=== PATIENT | male | born 1955 | race Caucasian/White ===

== ENCOUNTER → 2016-08-20 | Outpatient (CLI) | payer MEDICAID, OTHER ==
[~2016-08-20] MED LIST: ALBU2.5V4 NEB; ALBU2.5V52 INH; ALBU8.5H2 IH; ALBU8.5H4 IH; ATOR10TA PO; AZIT250T PO; CEFD300C3 PO; CEFP500T4 PO; CEPH500C PO; CIPR-225 PO; CRB200T PO; CRESTOR40 MG PO; CYCL10TA9 PO; DOXY100C42 PO; DOXY100C49 PO; EZET10TA5 PO; FLUT1DIS26 PO; GBPN300C PO; HYDR-707 PO; HYDR-757 PO; LAMO100T69 PO; LAMO25TA75 PO; MELO15TA14 PO; METH4TAB PO; PHN100C PO; PRD10T PO; PRD20T PO; PRED20TA PO; ROSU40TA PO; RT-ALBUINH IH; TIOT18CA INH
[2016-08-20 11:21] LABS: MEAN PLATELET VOLUME 9.5 FL (7.4-10.4); RED BLOOD COUNT 4.47 10^6/uL (4.35-5.85); RED CELL DISTRIBUTION WIDTH 14.9 % (10.0-14.5); WHITE BLOOD COUNT 5.7 10^3/uL (4.3-11.0)
[2016-08-20 11:36] LABS: ALANINE AMINOTRANSFERASE 9 U/L (0-55); ANION GAP 7 MMOL/L (5-14); ASPARTATE AMINO TRANSFERASE 13 U/L (5-34); BILIRUBIN,TOTAL 0.3 MG/DL (0.1-1.0); BLOOD UREA NITROGEN 11 MG/DL (7-18); BUN/CREATININE RATIO 15; CALCIUM 8.9 MG/DL (8.5-10.1); CARBON DIOXIDE 28 MMOL/L (21-32); CHLORIDE 95 MMOL/L (98-107); CHOLESTEROL 277 MG/DL (< 200); CREATININE SERUM 0.73 MG/DL (0.60-1.30); DIRECT LDL 170 MG/DL (1-129); GFR ESTIMATED > 60; GLUCOSE 96 MG/DL (70-105); POTASSIUM 4.7 MMOL/L (3.6-5.0); SODIUM 130 MMOL/L (135-145); TRIGLYCERIDES 63 MG/DL (<150); VLDL CHOLESTEROL 13 MG/DL (5-40)
[2016-08-20 11:42] LABS: CARBAMAZEPINE (TEGRETOL) 8.4 UG/ML (4.0-12.0)
== END ==
LOC: LAB 10:59
PROVIDERS: ATTEND Family Medicine
DX: G40.909 Epilepsy, unspecified, not intractable, without status epilepticus (principal); J44.9 Chronic obstructive pulmonary disease, unspecified
CPT/HCPCS: 36415; 80053; 80061; 80156; 80185; 85027

== ENCOUNTER → 2016-09-10 | Outpatient (CLI) | payer MEDICAID, OTHER ==
[2016-09-10 14:14] LABS: ANION GAP 10 MMOL/L (5-14); BLOOD UREA NITROGEN 8 MG/DL (7-18); BUN/CREATININE RATIO 11 (0-20); CALCIUM 9.4 MG/DL (8.5-10.1); CARBON DIOXIDE 27 MMOL/L (21-32); CHLORIDE 95 MMOL/L (98-107); CREATININE SERUM 0.74 MG/DL (0.60-1.30); GFR ESTIMATED > 60; GLUCOSE 92 MG/DL (70-105); POTASSIUM 4.5 MMOL/L (3.6-5.0); SODIUM 132 MMOL/L (135-145)
== END ==
LOC: LAB 13:39
PROVIDERS: ATTEND Family Medicine
DX: E87.1 Hypo-osmolality and hyponatremia (principal); G40.909 Epilepsy, unspecified, not intractable, without status epilepticus
CPT/HCPCS: 36415; 80048

== ENCOUNTER → 2016-12-19 | Outpatient (CLI) | payer MEDICAID, OTHER ==
[2016-12-19 12:44] LABS: BASOPHILS % (AUTO) 0 % (0-10); EOSINOPHILS % (AUTO) 0 % (0-10); LYMPHOCYTES # (AUTO) 0.9 X 10^3 (1.0-4.0); LYMPHOCYTES % (AUTO) 9 % (12-44); MEAN CORPUSCULAR HEMOGLOBIN 31 PG (25-34); MEAN CORPUSCULAR HGB CONC 34 G/DL (32-36); MEAN CORPUSCULAR VOLUME 92 FL (80-99); MEAN PLATELET VOLUME 9.1 FL (7.4-10.4); MONOCYTES # (AUTO) 0.8 X 10^3 (0.0-1.0); MONOCYTES % (AUTO) 8 % (0-12); NEUTROPHILS # (AUTO) 8.1 X 10^3 (1.8-7.8); NEUTROPHILS % (AUTO) 83 % (42-75); PLATELET COUNT 239 10^3/uL (130-400); RED BLOOD COUNT 4.41 10^6/uL (4.35-5.85); WHITE BLOOD COUNT 9.7 10^3/uL (4.3-11.0)
--- NOTE | 2016-12-19 13:55 | Diagnostic Imaging Report ---
PA and lateral views of the chest. INDICATION: COPD. Cough. FINDINGS: The lungs are hyperinflated and clear. The heart size is normal. No effusion or pneumothorax is seen. The mediastinum and ryan appear unremarkable. IMPRESSION: COPD. Hyperinflated clear lungs. Dictated by: Dictated on workstation # [id number]
== END ==
LOC: RAD 12:24
PROVIDERS: ATTEND Family Medicine
DX: J44.9 Chronic obstructive pulmonary disease, unspecified (principal)
CPT/HCPCS: 36415; 71020; 85025

== ENCOUNTER → 2017-01-14 | Outpatient (CLI) | payer MEDICAID, OTHER ==
[2017-01-14 13:10] LABS: MEAN PLATELET VOLUME 9.5 FL (7.4-10.4); RED BLOOD COUNT 4.5 10^6/uL (4.35-5.85); RED CELL DISTRIBUTION WIDTH 14.7 % (10.0-14.5); WHITE BLOOD COUNT 10.1 10^3/uL (4.3-11.0)
--- NOTE | 2017-01-14 13:12 | Diagnostic Imaging Report ---
PROCEDURE: CT head without contrast. TECHNIQUE: Multiple contiguous axial images were obtained through the brain without the use of intravenous contrast. INDICATION: Fall. Trauma to the head. History of seizures. COMPARISON: 11/20/2015 FINDINGS: Ventricles and cortical sulci are stable in size and contour. Note is again made of asymmetric enlargement of the right lateral ventricle. There is also asymmetric mild atrophy of the right cerebral hemisphere. These changes are chronic as well. There is no new loss of murphy-white matter junction differentiation to suggest new acute territorial infarct. There is no new mass effect or midline shift. There is no evidence of intra-or extra-axial intracranial hemorrhage. No extraaxial masses or fluid collections are identified. Bony calvarium is intact. Paranasal sinuses and mastoid air cells are clear. IMPRESSION: 1. No acute intracranial abnormality. No CT evidence of acute infarct, mass, nor hemorrhage. Dictated by: Dictated on workstation # [id number]
[2017-01-14 13:30] LABS: ALANINE AMINOTRANSFERASE 11 U/L (0-55); ALBUMIN 3.8 GM/DL (3.2-4.5); ANION GAP 9 MMOL/L (5-14); ASPARTATE AMINO TRANSFERASE 20 U/L (5-34); BILIRUBIN,TOTAL 0.4 MG/DL (0.1-1.0); BLOOD UREA NITROGEN 8 MG/DL (7-18); BUN/CREATININE RATIO 12; CALCIUM 9.2 MG/DL (8.5-10.1); CARBON DIOXIDE 32 MMOL/L (21-32); CHLORIDE 90 MMOL/L (98-107); CREATININE SERUM 0.65 MG/DL (0.60-1.30); GFR ESTIMATED > 60; GLUCOSE 115 MG/DL (70-105); POTASSIUM 4.4 MMOL/L (3.6-5.0); SODIUM 131 MMOL/L (135-145); TOTAL PROTEIN 7.3 GM/DL (6.4-8.2)
[2017-01-14 13:36] LABS: CARBAMAZEPINE (TEGRETOL) 5.9 UG/ML (4.0-12.0)
--- NOTE | 2017-01-14 19:06 | Diagnostic Imaging Report ---
3 views of the left ankle. INDICATION: Fall. FINDINGS: No fracture, dislocation or radiopaque foreign body. The ankle mortise appears normal in configuration. Slight irregularity along the posterior malleolus could relate to an old injury. IMPRESSION: No acute fracture seen. Dictated by: Dictated on workstation # [id number]
--- NOTE | 2017-01-14 19:13 | Diagnostic Imaging Report ---
3 views of the nasal bone. INDICATION: Fall. FINDINGS: There is a transverse lucency along the mid to proximal aspect of the nasal bone seen on the lateral view of each side which may relate to a nondisplaced fracture. No radiopaque foreign body. IMPRESSION: Transverse lucency across the nasal bone may relate to a nondisplaced fracture. Dictated by: Dictated on workstation # [id number]
== END ==
LOC: RAD 12:13
PROVIDERS: ATTEND Family Medicine
DX: J34.89 Other specified disorders of nose and nasal sinuses (principal); S99.912A Unspecified injury of left ankle, initial encounter; G40.909 Epilepsy, unspecified, not intractable, without status epilepticus; W19.XXXA Unspecified fall, initial encounter; Y99.8 Other external cause status
CPT/HCPCS: 36415; 70160; 70450; 73610; 80053; 80156; 80185; 85027

== ENCOUNTER 2017-02-28 12:20 | Inpatient (IN) | payer MEDICAID ==
[~2017-02-28] VITALS: Ht 185.4 cm; Wt 59.7 kg
--- OUTSIDE RECORDS SUMMARY | 2017-02-28 12:26 | XMS REPORT | Clinical Summary ---
Author Author [facility] Address Unknown Phone Unavailable Care Team Providers Care Manager Proposal Name Role Phone PCP Unavailable Source Comments Some departments are not documenting in the electronic medical record. If you do not see the information that you expected, contact Release of Information in the Health Information Management department at [phone] for further assistance in locating additional records.[facility] Allergies Active Allergy Reactions Severity Noted Date Comments Aspirin SEE COMMENTS 10/22/2013 Contraindication to some of his medications Current Medications Prescription Sig. Disp. Refills Start End Date Status Date tiotropium (SPIRIVA WITH Inhale 18 mcg by mouth Active HANDIHALER) 18 mcg daily. capsule for inhaler FLUTICASONE/SALMETEROL Inhale by mouth twice Active (ADVAIR DISKUS IN) daily. MELOXICAM (MOBIC PO) Take by mouth daily. Active ALBUTEROL IN Inhale by mouth four Active times daily. ROSUVASTATIN CALCIUM Take by mouth daily. Active (CRESTOR PO) gabapentin (NEURONTIN) Take 1 Cap by mouth 180 Cap 11 10/29/19 Active 300 mg capsule daily. Taking 6 tabs 15 daily lamoTRIgine (LAMICTAL) Take 1 Tab by mouth three 90 Tab 6 10/29/19 Active 100 mg tablet times daily. 15 lamoTRIgine (LAMICTAL) 25 Take 1 Tab by mouth three 90 Tab 6 10/29/19 Active mg tablet times daily. 15 phenytoin SR (DILANTIN) Take 1 Cap by mouth four 120 Cap 6 10/29/19 Active 100 mg capsule times daily. 15 gabapentin (NEURONTIN) TAKE 6 TABLETS BY MOUTH 180 Cap 1 11/06/19 Active 300 mg capsule DAILY 16 EPITOL 200 mg tablet TAKE ONE TABLET BY MOUTH 90 Tab 2 01/29/20 Active THREE TIMES A DAY 16 Active Problems Problem Noted Date Seizures (HCC) 10/22/2013 Hemiparesis ([facility]) 10/22/2013 Asthma 10/22/2013 COPD (chronic obstructive pulmonary disease) ([facility]) 10/22/2013 Hyperlipidemia 10/22/2013 Weight loss 10/22/2013 Family History Medical History Relation Name Comments Hypertension Father Relation Name Status Comments Father Social History Tobacco Use Types Packs/Day Years Used Date Current Every Day Smoker Cigarettes 1.5 46 Smokeless Tobacco: Never Used Alcohol Use Drinks/Week oz/Week Comments No Sex Assigned at Date Recorded Not on file Last Filed Vital Signs Vital Sign Reading Time Taken Blood Pressure 153/85 10/28/2014 11:59 AM CDT Pulse 58 10/28/2014 11:59 AM CDT Temperature 36.8 C (98.3 F) 10/22/2013 10:21 AM CDT Respiratory Rate - - Oxygen Saturation - - Inhaled Oxygen - - Concentration Weight 77.8 kg (171 lb 8 oz) 10/28/2014 11:59 AM CDT Height 188 cm (6' 2") 10/28/2014 11:59 AM CDT Body Mass Index 22.02 10/28/2014 11:59 AM CDT Plan of Treatment Health Maintenance Due Date Last Done Comments HEPATITIS C SCREENING 1955 PHYSICAL (COMPREHENSIVE) 1960 EXAM PERTUSSIS VACCINE 1964 TETANUS VACCINE 1970 COLORECTAL CANCER 07/17/2003 SCREENING SHINGLES VACCINE 2013 INFLUENZA VACCINE 10/29/2016 Results Not on filefrom Last 3 Months
--- OUTSIDE RECORDS SUMMARY | 2017-02-28 12:28 | XMS REPORT ---
Author Author JAYSON WOODS Organization [employer] Address Unknown Phone Unavailable Care Team Providers Care Commissions Analyst Name Role Phone JAYSON WOODS CP Unavailable Allergies, Adverse Reactions, Alerts Substance Reaction Event Type Aspirin Info Not Available Drug Allergy Problems Problem Type Condition Code Onset Dates Condition Status Problem Obstructive chronic bronchitis, with (acute) exacerbation 491.21 Active Assessment CAP (community acquired pneumonia) J18.9 Active Problem Nondependent tobacco use disorder 305.1 Active Medications Medication Code System Code Instructions Start Date End Date Status Dosage Spiriva HandiHaler [facility] [address]-29 not defined Lamictal [facility] [address]-49 August 19, 2012 by Oral route Crestor [facility] [address]-27 August 19, 2012 by Oral route Mobic [facility] [address]-58 August 19, 2012 by Oral route Albuterol Sulfate [facility] [address]-27 2.5 mg /3 mL (0.083 %) Dec 10, 2013 1 Each by Inhalation route every 4 hours for cough and wheeze PRN for wheezing or cough Tegretol [facility] [address]-79 August 19, 2012 by Oral route Dilantin [facility] [address]-35 August 19, 2012 by Oral route Neurontin [facility] [address]-76 August 19, 2012 by Oral route Advair Diskus [facility] [address]-99 August 19, 2012 by Inhalation route Procedures Procedure Coding System Code Date Office Visit, Est Pt., Level 4 CPT-4 92846 Mar 11, 2015 MEASURE BLOOD OXYGEN LEVEL CPT-4 41235 Mar 11, 2015 Vital Signs Date/Time: Mar 11, 2015 Temperature 99.6 F Weight 171 lbs Height 72 in Oximetry 96 % Blood Pressure Diastolic 70 mmHg Blood Pressure Systolic 130 mmHg Cardiac Monitoring Heart Rate 71 bpm BMI 23.19 Index Results No Known Results Summary Purpose [employer] Submission
[2017-02-28] MEDS ORDERED: methylPREDNISolone 125 MG (Solu-MEDROL) VIAL IVP ONE (12:30)
--- NOTE | 2017-02-28 12:34 | ED Cough/URI ---
General Chief Complaint: Respiratory Problems Stated Complaint: COPD Source: patient Exam Limitations: no limitations History of Present Illness Time seen by provider: 12:32 Initial Comments To ER per EMS from Dr. Genao's office with reports of shortness of breath. Patient has COPD and asthma. He has been out of his Advair and albuterol inhalers for the past 3 days. He continues to smoke 1.5 pack of cigarettes per day. He also reports an unintentional weight loss of about 30 pounds over the past few weeks. Timing/Duration: constant Prior Episodes/Possible Cause: occasional episodes Associated Symptoms: cough, shortness of breath, wheezing Allergies and Home Medications Allergies Coded Allergies: aspirin (Unverified Allergy, Mild, DOES NOT WORK WELL W/ OTHER MEDS, ) ibuprofen (Unverified Allergy, Mild, 08/10/15) Home Medications Albuterol Sulfate 2.5 Mg/3 Ml Vial.neb, 2.5 MG NEB 5XD PRN for SHORTNESS OF BREATH, (Reported) Albuterol Sulfate 1 Puff Puff, 2 PUFF IH Q6H PRN for SHORTNESS OF BREATH, ( Reported) 1 PUFF = 90 MCG Atorvastatin Calcium 40 Mg Tablet, 40 MG PO 0200, (Reported) Carbamazepine 200 Mg Tablet, 400 MG PO 1500, (Reported) TAKES 2 (200MG) TABLETS Carbamazepine 200 Mg Tablet, 200 MG PO 0200,0800,2300, (Reported) Fluticasone/Salmeterol 1 Each Blst.w.dev, 1 PUFF IH BID, (Reported) LAST FILLED 01-25-17 Gabapentin 300 Mg Capsule, 300 MG PO 2300, (Reported) Gabapentin 600 Mg Tablet, 600 MG PO 0800,1500, (Reported) Lamotrigine 25 Mg Tablet, 25 MG PO 1500,2300, (Reported) Lamotrigine 100 Mg Tablet, 100 MG PO 1500,0200, (Reported) Meloxicam 15 Mg Tablet, 15 MG PO 1500, (Reported) Phenytoin Sodium Extended 100 Mg Capsule, 200 MG PO 1500, (Reported) TAKES 2 (100MG) CAPSULES Phenytoin Sodium Extended 100 Mg Capsule, 100 MG PO 0800,2300, (Reported) Tiotropium [place] 1 Inh Aerp, 1 CAP IH HS, (Reported) Constitutional: see HPI, No chills, No fever EENTM: see HPI Respiratory: see HPI, cough, short of breath, wheezing Cardiovascular: no symptoms reported Genitourinary: no symptoms reported Musculoskeletal: no symptoms reported Skin: no symptoms reported Psychiatric/Neurological: No Symptoms Reported Hematologic/Lymphatic: No Symptoms Reported Past Rdibyvl-Jrimgk-Veydlm Hx Patient Social History Type Used: Cigarettes Recent Hopitalizations: No Immunizations Up To Date PED Vaccines UTD: Yes Surgeries Surgeries: Gallbladder Respiratory Respiratory Disorders: Asthma, Sleep Apnea, COPD Currently Using CPAP: No Currently Using BIPAP: No Cardiovascular Cardiac Disorders: High Cholesterol Neurological Neurological Disorders: Seizure Disorder Reproductive System Hx Reproductive Disorders: No Sexually Transmitted Disease: No HIV/AIDS: No HEENT Loss of Vision: Denies Hearing Impairment: Denies Blood Transfusions Adverse Reaction to a Blood Tr: No Family Medical History Significant Family History: No Pertinent Family Hx, Heart Disease Family Medial History: Hypercholesterolemia 19 FATHER Hypertension 19 FATHER Physical Exam Vital Signs Vital Sign - Last 12Hours 02/28/17 12:20 Temp 98.8 Pulse 81 Resp 22 B/P (MAP) 136/86 (103) Pulse Ox 99 O2 Delivery Nasal Cannula Capillary Refill : General Appearance: WD/WN, no apparent distress Eyes: Bilateral Eye Normal Inspection, Bilateral Eye PERRL, Bilateral Eye EOMI HEENT: PERRL/EOMI, normal ENT inspection Neck: non-tender, full range of motion Respiratory: decreased breath sounds, accessory muscle use, crackles, rhonchi, wheezing Cardiovascular: regular rate, rhythm, no murmur Gastrointestinal: normal bowel sounds, non tender, soft Neurologic/Psychiatric: alert, normal mood/affect, oriented x 3 Skin: normal color, warm/dry Laceration Repair : Suture Size: 5-0 Progress/Results/Core Measures Suspected Sepsis SIRS Temperature: Pulse: Respiratory Rate: Laboratory Tests 02/28/17 12:27: White Blood Count 15.6H Blood Pressure / Mean: Laboratory Tests 02/28/17 12:27: Creatinine 0.64, Platelet Count 237, Total Bilirubin 0.3 Results/Orders Lab Results Laboratory Tests Test 02/28/17 12:27 Range/Units White Blood Count 15.6 H 4.3-11.0 10^3/uL Red Blood Count 3.98 L 4.35-5.85 10^6/uL Hemoglobin 12.2 L 13.3-17.7 G/DL Hematocrit 37 L 40-54 % Mean Corpuscular Volume 92 80-99 FL Mean Corpuscular Hemoglobin 31 25-34 PG Mean Corpuscular Hemoglobin Concent 33 32-36 G/DL Red Cell Distribution Width 14.4 10.0-14.5 % Platelet Count 237 130-400 10^3/uL Mean Platelet Volume 9.1 7.4-10.4 FL Neutrophils (%) (Auto) 87 H 42-75 % Lymphocytes (%) (Auto) 5 L 12-44 % Monocytes (%) (Auto) 8 0-12 % Eosinophils (%) (Auto) 0 0-10 % Basophils (%) (Auto) 0 0-10 % Neutrophils # (Auto) 13.6 H 1.8-7.8 X 10^3 Lymphocytes # (Auto) 0.7 L 1.0-4.0 X 10^3 Monocytes # (Auto) 1.3 H 0.0-1.0 X 10^3 Eosinophils # (Auto) 0.0 0.0-0.3 10^3/uL Basophils # (Auto) 0.0 0.0-0.1 10^3/uL Neutrophils % (Manual) 88 % Lymphocytes % (Manual) 4 % Monocytes % (Manual) 8 % Eosinophils % (Manual) 0 % Basophils % (Manual) 0 % Band Neutrophils 0 % Blood Morphology Comment NORMAL Blood Gas Puncture Site R RAD Blood Gas Patient Temperature 98.8 Arterial Blood pH 7.37 7.37-7.43 Arterial Blood Partial Pressure CO2 66 H 35-45 MMHG Arterial Blood Partial Pressure O2 90 79-93 MMHG Arterial Blood HCO3 37 H 23-27 MMOL/L Arterial Blood Total CO2 38.9 H 21.0-31.0 MMOL/L Arterial Blood Oxygen Saturation 98 94-100 % Arterial Blood Base Excess 11.2 H -2.5-2.5 MMOL/L Johan Test YES-POS Blood Gas Ventilator Setting NO Blood Gas Inspired Oxygen 3 Sodium Level 133 L 135-145 MMOL/L Potassium Level 4.4 3.6-5.0 MMOL/L Chloride Level 89 L 98-107 MMOL/L Carbon Dioxide Level 36 H 21-32 MMOL/L Anion Gap 8 5-14 MMOL/L Blood Urea Nitrogen 9 7-18 MG/DL Creatinine 0.64 0.60-1.30 MG/DL Estimat Glomerular Filtration Rate > 60 BUN/Creatinine Ratio 14 Glucose Level 113 H 70-105 MG/DL Calcium Level 9.2 8.5-10.1 MG/DL Total Bilirubin 0.3 0.1-1.0 MG/DL Aspartate Amino Transf (AST/SGOT) 10 5-34 U/L Alanine Aminotransferase (ALT/SGPT) 8 0-55 U/L Alkaline Phosphatase 133 40-136 U/L B-Type Natriuretic Peptide 60.4 <100.0 PG/ML Total Protein 7.4 6.4-8.2 GM/DL Albumin 3.8 3.2-4.5 GM/DL My Orders Orders - NOREEN CHÁVEZ APRN Cbc With Automated Diff (02/28/17 12:22) Comprehensive Metabolic Panel (02/28/17 12:22) Chest 1 View, Ap/Pa Only (02/28/17 12:22) BNP (02/28/17 12:22) Saline Lock/Iv-Start (02/28/17 12:22) Methylprednisolone Sod Succ (Solu-Medrol (02/28/17 12:30) Arterial Blood Gas (02/28/17 12:27) Manual Differential (02/28/17 12:27) Blood Culture (02/28/17 13:14) Lactic Acid Analyzer (02/28/17 13:14) Ceftriaxone Injection (Rocephin Injectio (02/28/17 13:15) Medications Given in ED Current Medications Medications Dose Ordered Sig/Porfirio Route Start Time Stop Time Status Last Admin Dose Admin Methylprednisolone Sodium Succinate 125 mg ONCE ONCE IVP 02/28/17 12:30 02/28/17 12:31 DC 02/28/17 12:42 125 MG Vital Signs/I&O Vital Sign - Last 12Hours 02/28/17 12:20 Temp 98.8 Pulse 81 Resp 22 B/P (MAP) 136/86 (103) Pulse Ox 99 O2 Delivery Nasal Cannula Capillary Refill : Diagnostic Imaging Diagonstic Imaging: Xray Plain Films/CT/US/NM/MRI: chest Comments NAME: CR QUIJANO MED REC#: [id number] PT STATUS: REG ER : 1955 PHYSICIAN: NOREEN CHÁVEZ APRN ADMIT DATE: 02/28/17/ER Draft Date of Exam:02/28/17 CHEST 1 VIEW, AP/PA ONLY Indication: Shortness of breath Exam: Portable chest at 12:47 PM Findings: There is some interstitial infiltrate in the medial lung bases bilaterally that is new compared to 02/04/2017. Heart size and pulmonary vascularity are normal. The lungs are clear. There are degeneratives change in both shoulders. Impression: Bilateral medial basilar interstitial infiltrates are new since 02/04/2017. Dictated on workstation # [id number] Dict: 02/28/17 1306 Trans: 02/28/17 1311 [facility] [id number] Interpreted by: VANESSA SERNA MD Electronically signed by: Departure Communication (Admissions) Time/Spoke to Admitting Phy: 13:[address] Godinez extracorporeal circulation specialist for dr genao. Will admit, cefepime, steroids. Impression Impression: Primary Impression: COPD exacerbation Additional Impression: Pneumonia, community acquired Disposition: ADMITTED INPATIENT Condition: Stable Admissions Decision to Admit Reason: Admit from ER (General) Decision to Admit/Date: Feb 28, 2017 Time/Decision to Admit Time: 13:00 Departure-Patient Inst. Referrals: AMANDEEP GENAO DO (PCP/Family) Primary Care Physician NOREEN CHÁVEZ APRN Feb 28, 2017 12:34
[2017-02-28 12:35] LABS: BASOPHILS % (AUTO) 0 % (0-10); EOSINOPHILS % (AUTO) 0 % (0-10); LYMPHOCYTES # (AUTO) 0.7 X 10^3 (1.0-4.0); LYMPHOCYTES % (AUTO) 5 % (12-44); MEAN CORPUSCULAR HEMOGLOBIN 31 PG (25-34); MEAN CORPUSCULAR HGB CONC 33 G/DL (32-36); MEAN CORPUSCULAR VOLUME 92 FL (80-99); MEAN PLATELET VOLUME 9.1 FL (7.4-10.4); MONOCYTES # (AUTO) 1.3 X 10^3 (0.0-1.0); MONOCYTES % (AUTO) 8 % (0-12); NEUTROPHILS # (AUTO) 13.6 X 10^3 (1.8-7.8); NEUTROPHILS % (AUTO) 87 % (42-75); PLATELET COUNT 237 10^3/uL (130-400); RED BLOOD COUNT 3.98 10^6/uL (4.35-5.85); RED CELL DISTRIBUTION WIDTH 14.4 % (10.0-14.5); WHITE BLOOD COUNT 15.6 10^3/uL (4.3-11.0)
[2017-02-28 12:38] LABS: ABG BASE EXCESS 11.2 MMOL/L (-2.5-2.5); ABG HCO3 37 MMOL/L (23-27); ABG OXYGEN SATURATION 98 % (94-100); ABG PCO2 66 MMHG (35-45); ABG PH 7.37 (7.37-7.43); ABG PO2 90 MMHG (79-93); ABG TCO2 38.9 MMOL/L (21.0-31.0)
[2017-02-28 12:39] LABS: ALLENS TEST YES-POS; PATIENT TEMP 98.8
[2017-02-28 12:57] LABS: ANION GAP 8 MMOL/L (5-14); BLOOD UREA NITROGEN 9 MG/DL (7-18); CARBON DIOXIDE 36 MMOL/L (21-32); CHLORIDE 89 MMOL/L (98-107); CREATININE SERUM 0.64 MG/DL (0.60-1.30); POTASSIUM 4.4 MMOL/L (3.6-5.0); SODIUM 133 MMOL/L (135-145)
[2017-02-28 12:58] LABS: ALANINE AMINOTRANSFERASE 8 U/L (0-55); ALBUMIN 3.8 GM/DL (3.2-4.5); ASPARTATE AMINO TRANSFERASE 10 U/L (5-34); BILIRUBIN,TOTAL 0.3 MG/DL (0.1-1.0); BUN/CREATININE RATIO 14; CALCIUM 9.2 MG/DL (8.5-10.1); GFR ESTIMATED > 60; GLUCOSE 113 MG/DL (70-105); TOTAL PROTEIN 7.4 GM/DL (6.4-8.2)
[2017-02-28 12:59] LABS: BAND NEUTROPHILS 0 %; BASOPHILS % (MANUAL) 0 %; EOSINOPHILS % (MANUAL) 0 %; LYMPHOCYTES % (MANUAL) 4 %; NEUTROPHILS % (MANUAL) 88 %
--- NOTE | 2017-02-28 13:11 | Diagnostic Imaging Report ---
Indication: Shortness of breath Exam: Portable chest at 12:47 PM Findings: There is some interstitial infiltrate in the medial lung bases bilaterally that is new compared to 02/04/2017. Heart size and pulmonary vascularity are normal. The lungs are clear. There are degeneratives change in both shoulders. Impression: Bilateral medial basilar interstitial infiltrates are new since 02/04/2017. Dictated by: Dictated on workstation # [id number]
[2017-02-28] MEDS ORDERED: cefTRIAXone INJECTION 1,000 MG in NS (IVPB) 50 ML IV ONE (13:15)
--- OUTSIDE RECORDS SUMMARY | 2017-02-28 13:42 | XMS REPORT | Clinical Summary ---
Author Author [facility] Organization [facility] Address Unknown Phone Unavailable Care Team Providers Care Plant Ecologist Name Role Phone PCP Unavailable Source Comments Some departments are not documenting in the electronic medical record. If you do not see the information that you expected, contact Release of Information in the Health Information Management department at [phone] for further assistance in locating additional records.[facility] Allergies Active Allergy Reactions Severity Noted [...] Problem Noted Date Seizures (HCC) 10/22/2013 Hemiparesis ([facility]) 10/22/2013 Asthma 10/22/2013 COPD (chronic obstructive pulmonary disease) ([facility]) 10/22/2013 Hyperlipidemia 10/22/2013 Weight loss 10/22/2013 Family [...]
[2017-02-28] MEDS ORDERED: CEFEPIME INJECTION 2,000 MG in NS (IVPB) 50 ML IV ONE (14:00)
[2017-02-28 14:40] VITALS: BP 155/76
[2017-02-28] MEDS ORDERED: CARB200T6 PO (14:51)
[2017-02-28] MEDS ORDERED: LAMO100T PO (14:51)
[2017-02-28] MEDS ORDERED: ATOR40TA PO (14:51)
[2017-02-28] MEDS ORDERED: FLUT1DIS26 IH (14:51)
[2017-02-28] MEDS ORDERED: GABA-488 PO (14:53)
[2017-02-28] MEDS ORDERED: GABA600T2 PO (14:53)
[2017-02-28] MEDS ORDERED: CATHETER FLUSH 10 ML SYR IV PRN (15:00)
[2017-02-28] MEDS ORDERED: TIOT18CA2 IH (15:04)
[2017-02-28] MEDS ORDERED: PHEN100C11 PO ×2 (15:04)
[2017-02-28] MEDS ORDERED: CARB200T PO (15:04)
[2017-02-28] MEDS ORDERED: RT-ALBUINH IH (15:04)
[2017-02-28 15:18] VITALS: BP 155/76
[2017-02-28] MEDS: RT-ALBUTEROL/IPRATROPIUM 3 ML (DUONEB) VIAL INH SCH ×4 (15:39→21:49)
[2017-02-28] MEDS: NICOTINE 21 MG (NICODERM) PATCH TD SCH (15:55)
[2017-02-28] MEDS: methylPREDNISolone 125 MG (Solu-MEDROL) VIAL IV SCH ×2 (15:55→21:04)
[2017-02-28 16:00] VITALS: BP 138/66
[2017-02-28] MEDS ORDERED: INFLUENZA TRIvalent 2017-2018 0.5 ML/45 MCG SYR IM ONE (17:30)
[2017-02-28 20:00] VITALS: BP 125/62
[2017-02-28] MEDS: CEFEPIME 2 GM/NS 50 ML IVPB IV SCH ×2 (20:26)
[2017-02-28] MEDS: CATHETER FLUSH 10 ML SYR IV SCH (21:04)
[2017-03-01] VITALS: BP 122/58
[2017-03-01] MEDS: RT-ALBUTEROL/IPRATROPIUM 3 ML (DUONEB) VIAL INH SCH ×13 (00:07→23:48)
[2017-03-01] MEDS ORDERED: carBAMazepine 200 MG (TEGretol) TAB PO ONE (03:03)
[2017-03-01] MEDS ORDERED: PHENYTOIN 100 MG (DILANTIN) CAP PO ONE (03:03)
[2017-03-01] MEDS ORDERED: lamoTRIgine 25 MG (LaMICtal) TAB ONE (03:04)
[2017-03-01] MEDS ORDERED: GABAPENTIN 300 MG (NEURONTIN) CAP ONE (03:06)
[2017-03-01] MEDS: PHENYTOIN 100 MG (DILANTIN) CAP PO SCH ×4 (03:09→22:34)
[2017-03-01] MEDS: GABAPENTIN 300 MG (NEURONTIN) CAP PO SCH ×2 (03:10→22:34)
[2017-03-01] MEDS: carBAMazepine 200 MG (TEGretol) TAB PO SCH ×4 (03:11→22:34)
[2017-03-01] MEDS: lamoTRIgine 25 MG (LaMICtal) TAB PO SCH ×3 (03:12→22:34)
[2017-03-01 04:00] VITALS: BP 126/65
[2017-03-01] MEDS: CATHETER FLUSH 10 ML SYR IV SCH ×3 (05:14→22:35)
[2017-03-01] MEDS: methylPREDNISolone 125 MG (Solu-MEDROL) VIAL IV SCH ×3 (05:14→22:34)
[2017-03-01 05:29] LABS: BASOPHILS % (AUTO) 0 % (0-10); EOSINOPHILS % (AUTO) 0 % (0-10); LYMPHOCYTES # (AUTO) 0.8 X 10^3 (1.0-4.0); LYMPHOCYTES % (AUTO) 5 % (12-44); MEAN CORPUSCULAR HEMOGLOBIN 31 PG (25-34); MEAN CORPUSCULAR HGB CONC 33 G/DL (32-36); MEAN CORPUSCULAR VOLUME 93 FL (80-99); MEAN PLATELET VOLUME 9.6 FL (7.4-10.4); MONOCYTES # (AUTO) 1.3 X 10^3 (0.0-1.0); MONOCYTES % (AUTO) 9 % (0-12); NEUTROPHILS % (AUTO) 86 % (42-75); PLATELET COUNT 203 10^3/uL (130-400); RED BLOOD COUNT 3.59 10^6/uL (4.35-5.85); RED CELL DISTRIBUTION WIDTH 14.2 % (10.0-14.5); WHITE BLOOD COUNT 15.1 10^3/uL (4.3-11.0)
[2017-03-01 08:00] VITALS: BP 124/66
[2017-03-01] MEDS: CEFEPIME 2 GM/NS 50 ML IVPB IV SCH ×4 (08:32→20:34)
[2017-03-01] MEDS: NICOTINE 21 MG (NICODERM) PATCH TD SCH (08:32)
[2017-03-01] MEDS: NICOTINE PATCH REMOVAL TP SCH (08:32)
--- NOTE | 2017-03-01 10:57 | History & Physical-Hospitalist ---
HPI History of Present Illness: HPI/Chief Complaint Mr. 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 With O2 at home he is only been going to the bathroom and back with poor by mouth intake. He is been progressively more short of breath with increased clear sputum production especially over the past week. He presented to the Dr. Genao's office this Friday, 28 February. On room air because his oxygen tank and runout he reports his O2 saturation was in the 86 percent range with significant sensations of dyspnea. He was sent to the emergency room where he appeared to be in acute respiratory distress. After several breathing treatments who is feeling a little better. He had by basilar atelectasis versus infiltrate and was subsequently admitted for treatment of acute COPD exacerbation and possible pneumonia. He denied night sweats chills or fever but is had at least a 20 pound weight loss this year. Because of his shortness of breath and cough he had to cut back on his smoking from 2 packs a day to around 1 pack per day. Date Seen 03/01/17 Time Seen by Provider: 09:00 Attending Physician Micky Genao DO PCP Micky Genao DO Referring Physician Date of Admission Feb 28, 2017 at 13:26 Home Medications & Allergies Home Medications Reviewed patient Home Medication Reconciliation Form Allergies Allergies Coded Allergies aspirin (Unverified Allergy, Mild, DOES NOT WORK WELL W/ OTHER MEDS, 08/10/15) ibuprofen (Unverified Allergy, Mild, 08/10/15) Past Dexrptp-Fksiid-Goubah Hx Patient Social History Alcohol Use: Denies Use Recreational Drug Use: Yes (not current, 15 years ago-ETOH and PO drugs) Smoking Status: Current Everyday Smoker Type Used: Cigarettes Physical Abuse Screen: No Sexual Abuse: No Recent Foreign Travel: No Contact w/other who traveled: No Recent Hopitalizations: No Recent Infectious Disease Expo: No Immunizations Up To Date Pediatric: Yes Surgeries Yes Gallbladder Respiratory Yes (tobaccoism) COPD Currently Using CPAP: No Currently Using BIPAP: No Cardiovascular Yes High Cholesterol 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) Seizure Disorder Reproductive System Hx Reproductive Disorders: No Sexually Transmitted Disease: No HIV/AIDS: No Gastrointestinal No Musculoskeletal No Endocrine History of Endocrine Disorders: No HEENT Loss of Vision: Denies Hearing Impairment: Denies Cancer No Psychosocial History of Psychiatric Problem: No Integumentary History of Skin or Integumenta: No Blood Transfusions History of Blood Disorders: No Adverse Reaction to a Blood Tr: No Family Medical History Significant Family History: No Pertinent Family Hx, Heart Disease Family Hx: Hypercholesterolemia 19 FATHER Hypertension 19 FATHER Review of Systems Constitutional: see HPI, No chills, No diaphoresis, No dizziness, No fever, No malaise, weakness, No weight gain, weight loss, No other Respiratory: No no symptoms reported, No see HPI, cough, dyspnea on exertion, No hemoptysis, No orthopnea, No phlegm, short of breath, No stridor, wheezing, No other Cardiovascular: no symptoms reported, see HPI, No chest pain, No edema, No Hx of Intervention, No palpitations, No syncope, No vascular heart diseas, No other Physical Exam Physical Exam Vital Signs Vital Sign - Last 12Hours 02/28/17 02/28/17 02/28/17 12:20 14:37 15:18 Temp 98.8 Pulse 81 Resp 22 B/P (MAP) 136/86 (103) Pulse Ox 99 O2 Delivery Nasal Cannula O2 Flow Rate 3.00 FiO2 3 Capillary Refill : Less Than 3 Seconds General Appearance: Chronically ill, Cachetic, Other Eyes: Bilateral Eye Normal Inspection Neck: Full Range of Motion, Normal Inspection, Non Tender, Supple, Carotid Bruit Respiratory: Chest Non Tender, No Accessory Muscle Use, No Respiratory Distress , Other (Diminished breath sounds there are rales in the midlung lo with absent breath sounds in the bases. There is increased AP diameter with hyperresonance to percussion. Prolonged expiratory phase is noted this morning wheezing is noted only with forced expiration during expiratory phase.) Cardiovascular: Regular Rate, Rhythm, No Edema, No Gallop, No JVD, No Murmur, Normal Peripheral Pulses Gastrointestinal: Normal Bowel Sounds, No Organomegaly, No Pulsatile Mass, Non Tender, Soft Extremity: Normal Capillary Refill, Normal Inspection, Normal Range of Motion, Non Tender, No Calf Tenderness, No Pedal Edema Neurologic/Psychiatric: Alert, Oriented x3 Skin: Other (I'm size shallow gluteal ulcer noted in the upper gluteal fold midline nontender no induration.) Results Results/Procedures Lab Laboratory Tests 02/28/17:27 03/01/17 04:56 Assessment/Plan Admission Diagnosis 1. Acute on chronic hypercapnic respiratory failure possibly due to pneumonia continue antibiotics bronchodilator and anti-inflammatory therapy. 2. Tobaccoism resulting in number 1. Patient voices understanding that cigarettes are the cause of his failing health and likely early demise but still has no desire to quit smoking. 3. Decubitus ulceration age 1 gluteal fold secondary to debility malnutrition and weight loss likely all a result of number 1 discussed the importance of offloading the area for now we will apply barrier cream. Is no evidence for secondary infection. 4. History of generalized seizure disorder continue antiepileptic medication. Copy Copies To 1: MICKY GENAO DO Clinical Quality Measures DVT/VTE Risk/Contraindication: Risk Factor Score Per Nursin RFS Level Per Nursing on Admit: 4+=Very High JIMBO SÁNCHEZ MD Mar 01, 2017 10:57
[2017-03-01 12:00] VITALS: BP 124/63
[2017-03-01] MEDS: MELOXICAM 7.5 MG (MOBIC) TABLET PO SCH (14:37)
[2017-03-01] MEDS: GABAPENTIN 600 MG (NEURONTIN) TAB PO SCH (14:37)
[2017-03-01 16:00] VITALS: BP 145/70
[2017-03-01] MEDS: SIMETHICONE 80 MG (MYLICON) CHEW PO PRN (18:15)
[2017-03-01] MEDS: RT-ADVAIR HFA 115/21 MCG PER PUFF IH SCH (18:32)
[2017-03-01 20:00] VITALS: BP 136/64
[2017-03-01] MEDS ORDERED: RT-ADVAIR HFA 115/21 MCG PER PUFF IH SCH (20:00)
[2017-03-01] MEDS ORDERED: NON-FORMULARY MEDICATION 1 EA EA (Fluticasone/Salmeterol (Advair 250-50 Diskus) 1 PUFF) IH SCH (21:00)
[2017-03-02] VITALS: BP 148/71
[2017-03-02] MEDS: RT-ALBUTEROL/IPRATROPIUM 3 ML (DUONEB) VIAL INH SCH ×7 (02:10→21:29)
[2017-03-02] MEDS: carBAMazepine 200 MG (TEGretol) TAB PO SCH ×4 (02:41→23:21)
[2017-03-02] MEDS: ATORVASTATIN 40 MG (LIPITOR) TABLET PO SCH (02:41)
[2017-03-02 04:00] VITALS: BP 123/62
[2017-03-02] MEDS: methylPREDNISolone 125 MG (Solu-MEDROL) VIAL IV SCH (05:26)
[2017-03-02] MEDS: CATHETER FLUSH 10 ML SYR IV SCH ×3 (05:26→22:19)
[2017-03-02] MEDS: RT-ADVAIR HFA 115/21 MCG PER PUFF IH SCH ×2 (07:00→18:49)
[2017-03-02] MEDS ORDERED: RT-ALBUTEROL/IPRATROPIUM 3 ML (DUONEB) VIAL INH PRN (07:45)
[2017-03-02 07:57] VITALS: BP 143/72
[2017-03-02] MEDS: GABAPENTIN 600 MG (NEURONTIN) TAB PO SCH ×2 (08:02→14:21)
[2017-03-02] MEDS: CEFEPIME 2 GM/NS 50 ML IVPB IV SCH ×4 (08:02→22:19)
[2017-03-02] MEDS: PHENYTOIN 100 MG (DILANTIN) CAP PO SCH ×3 (08:02→23:20)
[2017-03-02] MEDS: NICOTINE 21 MG (NICODERM) PATCH TD SCH (08:04)
[2017-03-02] MEDS: NICOTINE PATCH REMOVAL TP SCH (08:04)
[2017-03-02 12:00] VITALS: BP 151/77
--- NOTE | 2017-03-02 12:55 | Progress Note-Hospitalist ---
Subjective HPI/CC On Admission Date Seen by Provider: Mar 02, 2017 Time Seen by Provider: 09:00 Mr. 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 With O2 at home he is only been going to the bathroom and back with poor by mouth intake. He is been progressively more short of breath with increased clear sputum production especially over the past week. He presented to the Dr. Feng's office this Friday, 28 February. On room air because his oxygen tank and runout he reports his O2 saturation was in the 86 percent range with significant sensations of dyspnea. He was sent to the emergency room where he appeared to be in acute respiratory distress. After several breathing treatments who is feeling a little better. He had by basilar atelectasis versus infiltrate and was subsequently admitted for treatment of acute COPD exacerbation and possible pneumonia. He denied night sweats chills or fever but is had at least a 20 pound weight loss this year. Because of his shortness of breath and cough he had to cut back on his smoking from 2 packs a day to around 1 pack per day. Subjective/Events-last exam she reports feeling better with less shortness of breath. He's able to go 4 hours between breathing treatments now. His cough is moderating and remains nonproductive. He denies chills or fever with improved appetite. He denies chest pain. Objective Exam Vital Signs Vital Sign - Last 12Hours 02/28/17 02/28/17 02/28/17 12:20 14:37 15:18 Temp 98.8 Pulse 81 Resp 22 B/P (MAP) 136/86 (103) Pulse Ox 99 O2 Delivery Nasal Cannula O2 Flow Rate 3.00 FiO2 3 Capillary Refill : Less Than 3 Seconds General Appearance: No Apparent Distress, Chronically ill, Thin Respiratory: Other (Katter rales and rhonchi without wheezing. Significant diminishment of breath sounds posteriorly. Increased air movement compared to yesterday) Cardiovascular: Regular Rate, Rhythm, No Edema, No Gallop, No JVD, No Murmur Extremity: No Pedal Edema Assessment/Plan Assessment and Plan Assess & Plan/Chief Complaint 1. Acute exacerbation of chronic Hypercapnic respiratory failure due to likely community-acquired pneumonia. Respiratory status improving on bronchodilator therapy and anti-inflammatory therapy and antibiotics. Will start Solu-Medrol taper decreasing to 62.5 mg IV every 8. 2. Tobaccoism with severe COPD. JIMBO SÁNCHEZ MD Mar 02, 2017 12:55
[2017-03-02] MEDS: MELOXICAM 7.5 MG (MOBIC) TABLET PO SCH (14:21)
[2017-03-02] MEDS: methylPREDNISolone 125 MG (Solu-MEDROL) VIAL IVP SCH ×2 (14:21→22:18)
[2017-03-02] MEDS: lamoTRIgine 25 MG (LaMICtal) TAB PO SCH ×2 (14:22→23:21)
[2017-03-02 15:20] VITALS: BP 152/75
[2017-03-02 19:10] VITALS: BP 132/66
[2017-03-02] MEDS: SIMETHICONE 80 MG (MYLICON) CHEW PO PRN (19:41)
[2017-03-02] MEDS: GABAPENTIN 300 MG (NEURONTIN) CAP PO SCH (23:21)
[2017-03-03] VITALS: BP 162/77
[2017-03-03] MEDS: RT-ALBUTEROL/IPRATROPIUM 3 ML (DUONEB) VIAL INH SCH ×3 (01:57→10:46)
[2017-03-03] MEDS: carBAMazepine 200 MG (TEGretol) TAB PO SCH ×3 (02:21→14:36)
[2017-03-03] MEDS: ATORVASTATIN 40 MG (LIPITOR) TABLET PO SCH (02:21)
[2017-03-03 04:00] VITALS: BP 122/72
[2017-03-03] MEDS: methylPREDNISolone 125 MG (Solu-MEDROL) VIAL IVP SCH ×2 (05:51→14:31)
[2017-03-03] MEDS: CATHETER FLUSH 10 ML SYR IV SCH ×2 (05:51→14:31)
[2017-03-03 05:57] LABS: BASOPHILS % (AUTO) 0 % (0-10); EOSINOPHILS % (AUTO) 0 % (0-10); LYMPHOCYTES # (AUTO) 0.8 X 10^3 (1.0-4.0); LYMPHOCYTES % (AUTO) 9 % (12-44); MEAN CORPUSCULAR HEMOGLOBIN 30 PG (25-34); MEAN CORPUSCULAR HGB CONC 33 G/DL (32-36); MEAN CORPUSCULAR VOLUME 91 FL (80-99); MEAN PLATELET VOLUME 9.3 FL (7.4-10.4); MONOCYTES # (AUTO) 0.7 X 10^3 (0.0-1.0); MONOCYTES % (AUTO) 9 % (0-12); NEUTROPHILS # (AUTO) 6.5 X 10^3 (1.8-7.8); NEUTROPHILS % (AUTO) 82 % (42-75); PLATELET COUNT 241 10^3/uL (130-400); RED BLOOD COUNT 3.54 10^6/uL (4.35-5.85); RED CELL DISTRIBUTION WIDTH 14.3 % (10.0-14.5)
[2017-03-03 06:14] LABS: ANION GAP 8 MMOL/L (5-14); BLOOD UREA NITROGEN 11 MG/DL (7-18); BUN/CREATININE RATIO 20; CALCIUM 8.7 MG/DL (8.5-10.1); CARBON DIOXIDE 32 MMOL/L (21-32); CHLORIDE 94 MMOL/L (98-107); CREATININE SERUM 0.56 MG/DL (0.60-1.30); GFR ESTIMATED > 60; GLUCOSE 104 MG/DL (70-105); POTASSIUM 4.5 MMOL/L (3.6-5.0); SODIUM 134 MMOL/L (135-145)
[2017-03-03] MEDS: RT-ADVAIR HFA 115/21 MCG PER PUFF IH SCH (07:10)
--- NOTE | 2017-03-03 07:45 | Progress Note (SOAP) ---
Subjective Time Seen by Provider: 07:40 Subjective/Events-last exam patient feeling better today and wants to go home. Chest x-ray ordered. Patient out of Advair, Spiriva, and albuterol inhaler. branch services manager to get involved. Patient looking better today than when he was in the office. COPD with acute exacerbation. Pneumonia. Tobaccoism. Weight loss. Nurse to call at 1 p.m. to see how patient is doing Objective Exam Vital Signs Date Time Temp Pulse Resp B/P (MAP) Pulse Ox O2 Delivery O2 Flow Rate FiO2 03/03/17 07:13 94 Nasal Cannula 4.00 03/03/17 07:10 94 Nasal Cannula 4.00 03/03/17 04:00 97.8 58 20 122/72 (89) 97 Nasal Cannula 4.00 03/03/17 01:58 97 Nasal Cannula 4.00 03/03/17 00:00 98.0 64 16 162/77 (105) 99 Nasal Cannula 4.00 03/02/17 21:29 97 Nasal Cannula 4.00 03/02/17 20:05 Nasal Cannula 4.00 03/02/17 19:10 97.3 74 18 132/66 (88) 96 Nasal Cannula 4.00 03/02/17 18:56 Nasal Cannula 4.00 03/02/17 18:49 94 Nasal Cannula 4.00 03/02/17 15:20 98.5 70 18 152/75 (100) 96 Nasal Cannula 4.00 03/02/17 14:39 96 Nasal Cannula 4.00 03/02/17 12:00 97.4 60 20 151/77 (101) 98 Nasal Cannula 4.00 03/02/17 10:15 94 Nasal Cannula 4.00 03/02/17 09:00 Nasal Cannula 4.00 03/02/17 07:57 96.8 67 20 143/72 (95) 97 Nasal Cannula 4.00 Capillary Refill : Less Than 3 Seconds General Appearance: No Apparent Distress, Thin HEENT: Normal ENT Inspection Neck: Normal Inspection Respiratory: Decreased Breath Sounds Cardiovascular: Regular Rate, Rhythm, No Murmur Gastrointestinal: non tender, soft Results Lab Laboratory Tests 03/03/17 05:45 Laboratory Tests 03/03/17 05:45: White Blood Count 8.0, Red Blood Count 3.54L, Hemoglobin 10.7L, Hematocrit 32L, Mean Corpuscular Volume 91, Mean Corpuscular Hemoglobin 30, Mean Corpuscular Hemoglobin Concent 33, Red Cell Distribution Width 14.3, Platelet Count 241, Mean Platelet Volume 9.3, Neutrophils (%) (Auto) 82H, Lymphocytes (%) (Auto) 9L , Monocytes (%) (Auto) 9, Eosinophils (%) (Auto) 0, Basophils (%) (Auto) 0, Neutrophils # (Auto) 6.5, Lymphocytes # (Auto) 0.8L, Monocytes # (Auto) 0.7, Eosinophils # (Auto) 0.0, Basophils # (Auto) 0.0, Sodium Level 134L, Potassium Level 4.5, Chloride Level 94L, Carbon Dioxide Level 32, Anion Gap 8, Blood Urea Nitrogen 11, Creatinine 0.56L, Estimat Glomerular Filtration Rate > 60, BUN/ Creatinine Ratio 20, Glucose Level 104, Calcium Level 8.7 Microbiology 02/28/17 Blood Culture - Preliminary, Resulted No growth Assessment/Plan Assessment/Plan Assess & Plan/Chief Complaint dyspnea. Hypercapnia. COPD with acute exacerbation. Pneumonia. Tobaccoism. Weight loss Clinical Quality Measures DVT/VTE Risk/Contraindication: Risk Factor Score Per Nursin RFS Level Per Nursing on Admit: 4+=Very High AMANDEEP GENAO DO Mar 03, 2017 07:45
[2017-03-03] MEDS ORDERED: CEFD300C3 PO ×2 (07:48→13:43)
[2017-03-03] MEDS ORDERED: ATOR10TA PO ×2 (07:50→13:43)
--- NOTE | 2017-03-03 07:53 | Discharge Inst-Simple/Standard ---
Discharge Inst-Standard Discharge Medications New, Converted or Re-Newed RX: Call to Patients Pharmacy Patient Instructions/Follow Up Plan of Care/Instructions/FU: 2 office on at 11 a.m. To check for his medicines at home. Activity as Tolerated: Yes Discharge Diet: No Restrictions Return to The Hospital For: dyspnea. Short of breath Planned Outpatient Orders/Ref. Pneu Vac Indicated: Yes AMANDEEP GENAO DO Mar 03, 2017 07:52
[2017-03-03 08:00] VITALS: BP 166/76
[2017-03-03] MEDS: CEFEPIME 2 GM/NS 50 ML IVPB IV SCH ×2 (08:16)
[2017-03-03] MEDS: GABAPENTIN 600 MG (NEURONTIN) TAB PO SCH ×2 (08:17→14:36)
[2017-03-03] MEDS: PHENYTOIN 100 MG (DILANTIN) CAP PO SCH ×2 (08:17→14:36)
[2017-03-03] MEDS: NICOTINE 21 MG (NICODERM) PATCH TD SCH (08:17)
[2017-03-03] MEDS: NICOTINE PATCH REMOVAL TP SCH (08:17)
--- NOTE | 2017-03-03 08:19 | Diagnostic Imaging Report ---
INDICATION: Pneumonia. PA and lateral views of the chest are obtained. Comparison is made to study of 02/28/2017. FINDINGS: There is air trapping, bilaterally. Overall heart size and pulmonary vascularity are within normal limits. Focal density in the left lower lobe has increased and is compatible with pneumonia. There is no pneumothorax or significant pleural fluid. IMPRESSION: Probable left basilar infiltrate consistent with pneumonia. Radiographic followup with PA and lateral views of the chest should be performed to document resolution. Advanced degenerative changes are again noted in the shoulders. Dictated by: Dictated on workstation # [id number]
[2017-03-03 12:00] VITALS: BP 154/79
[2017-03-03] MEDS ORDERED: FLUT1DIS26 IH (13:52)
[2017-03-03] MEDS ORDERED: RT-ALBUINH IH (13:52)
[2017-03-03] MEDS ORDERED: TIOT18CA2 IH (13:52)
[2017-03-03] MEDS ORDERED: ALBU2.5V4 NEB (13:52)
[2017-03-03] MEDS ORDERED: FLUT12AE4 IH (13:55)
[2017-03-03] MEDS: MELOXICAM 7.5 MG (MOBIC) TABLET PO SCH (14:36)
[2017-03-03] MEDS: lamoTRIgine 25 MG (LaMICtal) TAB PO SCH (14:36)
[2017-03-03] MEDS ORDERED: CEFDINIR 300 MG (OMNICEF) CAP PO SCH (21:00)
--- NOTE | 2017-03-04 07:39 | Discharge Summary ---
Diagnosis/Chief Complaint Date of Admission Feb 28, 2017 at 13:26 Date of Discharge Mar 03, 2017 at 14:45 Discharge Date: Mar 03, 2017 Discharge Time: 07:35 Admission Diagnosis Admission Diagnosis dyspnea. Short of breath. Asthma. Pneumonia. Tobaccoism. Decubitus ulcer. Seizure disorder Discharge Diagnosis dyspnea. COPD with acute exacerbation. Pneumonia. Asthma. Tobaccoism. Decubitus ulcer. Seizure disorder Reason Hospital Visit patient came to the office short of breath. Ran out of oxygen in the office. Transferred to emergency room by EMS. Chest x-ray shows pneumonia. Patient still smokes. Patient has COPD with acute exacerbation. Patient has asthma Discharge Summary Discharge Physical Examination Allergies: Coded Allergies: aspirin (Unverified Allergy, Mild, DOES NOT WORK WELL W/ OTHER MEDS, ) ibuprofen (Unverified Allergy, Mild, 08/10/15) Vitals & I&Os Vital Signs Date Time Temp Pulse Resp B/P (MAP) Pulse Ox O2 Delivery O2 Flow Rate FiO2 03/03/17 12:00 97.9 67 18 154/79 (104) 98 Nasal Cannula 4.00 03/02/17 07:40 36 Hospital Course patient in hospital. [place] better. Patient wanted to go home. Patient told about not smoking. Patient doesn't have the money to afford his medicines. Patient ran out of his medicines 3 days before admission Labs (last 24 hrs) Laboratory Tests 02/28/17 12:27: White Blood Count 15.6H, Red Blood Count 3.98L, Hemoglobin 12.2L, Hematocrit 37L , Mean Corpuscular Volume 92, Mean Corpuscular Hemoglobin 31, Mean Corpuscular Hemoglobin Concent 33, Red Cell Distribution Width 14.4, Platelet Count 237, Mean Platelet Volume 9.1, Neutrophils (%) (Auto) 87H, Lymphocytes (%) (Auto) 5L , Monocytes (%) (Auto) 8, Eosinophils (%) (Auto) 0, Basophils (%) (Auto) 0, Neutrophils # (Auto) 13.6H, Lymphocytes # (Auto) 0.7L, Monocytes # (Auto) 1.3H, Eosinophils # (Auto) 0.0, Basophils # (Auto) 0.0, Neutrophils % (Manual) 88, Lymphocytes % (Manual) 4, Monocytes % (Manual) 8, Eosinophils % (Manual) 0, Basophils % (Manual) 0, Band Neutrophils 0, Blood Morphology Comment NORMAL, Blood Gas Puncture Site R RAD, Blood Gas Patient Temperature 98.8, Arterial Blood pH 7.37, Arterial Blood Partial Pressure CO2 66H, Arterial Blood Partial Pressure O2 90, Arterial Blood HCO3 37H, Arterial Blood Total CO2 38.9H, Arterial Blood Oxygen Saturation 98, Arterial Blood Base Excess 11.2H, Johan Test YES-POS, Blood Gas Ventilator Setting NO, Blood Gas Inspired Oxygen 3, Sodium Level 133L, Potassium Level 4.4, Chloride Level 89L, Carbon Dioxide Level 36H, Anion Gap 8, Blood Urea Nitrogen 9, Creatinine 0.64, Estimat Glomerular Filtration Rate > 60, BUN/Creatinine Ratio 14, Glucose Level 113H, Calcium Level 9.2, Total Bilirubin 0.3, Aspartate Amino Transf (AST/SGOT) 10, Alanine Aminotransferase (ALT/SGPT) 8, Alkaline Phosphatase 133, B-Type Natriuretic Peptide 60.4, Total Protein 7.4, Albumin 3.8 02/28/17 13:52: Lactic Acid Level 1.38 03/01/17 04:56: White Blood Count 15.1H, Red Blood Count 3.59L, Hemoglobin 11.1L, Hematocrit 34L , Mean Corpuscular Volume 93, Mean Corpuscular Hemoglobin 31, Mean Corpuscular Hemoglobin Concent 33, Red Cell Distribution Width 14.2, Platelet Count 203, Mean Platelet Volume 9.6, Neutrophils (%) (Auto) 86H, Lymphocytes (%) (Auto) 5L , Monocytes (%) (Auto) 9, Eosinophils (%) (Auto) 0, Basophils (%) (Auto) 0, Neutrophils # (Auto) 13.0H, Lymphocytes # (Auto) 0.8L, Monocytes # (Auto) 1.3H, Eosinophils # (Auto) 0.0, Basophils # (Auto) 0.0 03/03/17 05:45: White Blood Count 8.0, Red Blood Count 3.54L, Hemoglobin 10.7L, Hematocrit 32L, Mean Corpuscular Volume 91, Mean Corpuscular Hemoglobin 30, Mean Corpuscular Hemoglobin Concent 33, Red Cell Distribution Width 14.3, Platelet Count 241, Mean Platelet Volume 9.3, Neutrophils (%) (Auto) 82H, Lymphocytes (%) (Auto) 9L , Monocytes (%) (Auto) 9, Eosinophils (%) (Auto) 0, Basophils (%) (Auto) 0, Neutrophils # (Auto) 6.5, Lymphocytes # (Auto) 0.8L, Monocytes # (Auto) 0.7, Eosinophils # (Auto) 0.0, Basophils # (Auto) 0.0, Sodium Level 134L, Potassium Level 4.5, Chloride Level 94L, Carbon Dioxide Level 32, Anion Gap 8, Blood Urea Nitrogen 11, Creatinine 0.56L, Estimat Glomerular Filtration Rate > 60, BUN/ Creatinine Ratio 20, Glucose Level 104, Calcium Level 8.7 Microbiology 02/28/17 Blood Culture - Preliminary, Resulted No growth Laboratory Tests 02/28/17 12:27 03/01/17 04:56 03/03/17 05:45 Pending Labs Microbiology Date/Time Source Procedure Growth Status 02/28/17 14:14 Peripheral Rt Ac Blood Culture - Preliminary No growth Resulted 02/28/17 13:52 Peripheral Lt Ac Blood Culture - Preliminary No growth Resulted Laboratory Tests 02/28/17 12:27: White Blood Count 15.6, Red Blood Count 3.98, Hemoglobin 12.2, Hematocrit 37, Mean Corpuscular Volume 92, Mean Corpuscular Hemoglobin 31, Mean Corpuscular Hemoglobin Concent 33, Red Cell Distribution Width 14.4, Platelet Count 237, Mean Platelet Volume 9.1, Neutrophils (%) (Auto) 87, Lymphocytes (%) (Auto) 5, Monocytes (%) (Auto) 8, Eosinophils (%) (Auto) 0, Basophils (%) (Auto) 0, Neutrophils # (Auto) 13.6, Lymphocytes # (Auto) 0.7, Monocytes # (Auto) 1.3, Eosinophils # (Auto) 0.0, Basophils # (Auto) 0.0, Neutrophils % (Manual) 88, Lymphocytes % (Manual) 4, Monocytes % (Manual) 8, Eosinophils % (Manual) 0, Basophils % (Manual) 0, Band Neutrophils 0, Blood Morphology Comment NORMAL, Blood Gas Puncture Site R RAD, Blood Gas Patient Temperature 98.8, Arterial Blood pH 7.37, Arterial Blood Partial Pressure CO2 66, Arterial Blood Partial Pressure O2 90, Arterial Blood HCO3 37, Arterial Blood Total CO2 38.9, Arterial Blood Oxygen Saturation 98, Arterial Blood Base Excess 11.2, Johan Test YES-POS , Blood Gas Ventilator Setting NO, Blood Gas Inspired Oxygen 3, Sodium Level 133 , Potassium Level 4.4, Chloride Level 89, Carbon Dioxide Level 36, Anion Gap 8, Blood Urea Nitrogen 9, Creatinine 0.64, Estimat Glomerular Filtration Rate > 60 , BUN/Creatinine Ratio 14, Glucose Level 113, Calcium Level 9.2, Total Bilirubin 0.3, Aspartate Amino Transf (AST/SGOT) 10, Alanine Aminotransferase ( ALT/SGPT) 8, Alkaline Phosphatase 133, B-Type Natriuretic Peptide 60.4, Total Protein 7.4, Albumin 3.8 02/28/17 13:52: Lactic Acid Level 1.38 03/01/17 04:56: White Blood Count 15.1, Red Blood Count 3.59, Hemoglobin 11.1, Hematocrit 34, Mean Corpuscular Volume 93, Mean Corpuscular Hemoglobin 31, Mean Corpuscular Hemoglobin Concent 33, Red Cell Distribution Width 14.2, Platelet Count 203, Mean Platelet Volume 9.6, Neutrophils (%) (Auto) 86, Lymphocytes (%) (Auto) 5, Monocytes (%) (Auto) 9, Eosinophils (%) (Auto) 0, Basophils (%) (Auto) 0, Neutrophils # (Auto) 13.0, Lymphocytes # (Auto) 0.8, Monocytes # (Auto) 1.3, Eosinophils # (Auto) 0.0, Basophils # (Auto) 0.0 03/03/17 05:45: White Blood Count 8.0, Red Blood Count 3.54, Hemoglobin 10.7, Hematocrit 32, Mean Corpuscular Volume 91, Mean Corpuscular Hemoglobin 30, Mean Corpuscular Hemoglobin Concent 33, Red Cell Distribution Width 14.3, Platelet Count 241, Mean Platelet Volume 9.3, Neutrophils (%) (Auto) 82, Lymphocytes (%) (Auto) 9, Monocytes (%) (Auto) 9, Eosinophils (%) (Auto) 0, Basophils (%) (Auto) 0, Neutrophils # (Auto) 6.5, Lymphocytes # (Auto) 0.8, Monocytes # (Auto) 0.7, Eosinophils # (Auto) 0.0, Basophils # (Auto) 0.0, Sodium Level 134, Potassium Level 4.5, Chloride Level 94, Carbon Dioxide Level 32, Anion Gap 8, Blood Urea Nitrogen 11, Creatinine 0.56, Estimat Glomerular Filtration Rate > 60, BUN/ Creatinine Ratio 20, Glucose Level 104, Calcium Level 8.7 Discussion & Recommendations 2 office next Friday. To get chest x-ray in one week Discharge Home Medications: Active Scripts Active Advair Hfa 115-21 Mcg Inhaler (Fluticasone/Salmeterol) 12 Gm Hfa.aer.ad 2 Puff IH BID@08,20 Proair Hfa (Albuterol Sulfate) 1 Puff Puff 2 Puff IH Q6H PRN 1 PUFF = 90 MCG Spiriva (Tiotropium [place]) 1 Inh Aerp 1 Cap IH HS Advair 250-50 Diskus (Fluticasone/Salmeterol) 1 Each Blst.w.dev 1 Puff IH BID LAST FILLED 01-25-17 Albuterol Sulfate 2.5 Mg/3 Ml Vial.neb 2.5 Mg NEB 5XD PRN Lipitor (Atorvastatin Calcium) 10 Mg Tablet 10 Mg PO DAILY Cefdinir 300 Mg Capsule 300 Mg PO BID Reported Tegretol (Carbamazepine) 200 Mg Tablet 200 Mg PO 0200,0800,2300 Phenytoin Sodium Extended 100 Mg Capsule 100 Mg PO 0800,2300 Phenytoin Sodium Extended 100 Mg Capsule 200 Mg PO 1500 TAKES 2 (100MG) CAPSULES Gabapentin 600 Mg Tablet 600 Mg PO 0800,1500 Gabapentin 300 Mg Capsule 300 Mg PO 2300 Lipitor (Atorvastatin Calcium) 40 Mg Tablet 40 Mg PO 0200 Lamotrigine 100 Mg Tablet 100 Mg PO 1500,0200 Carbamazepine 200 Mg Tablet 400 Mg PO 1500 TAKES 2 (200MG) TABLETS Lamictal (Lamotrigine) 25 Mg Tablet 25 Mg PO 1500,2300 Mobic (Meloxicam) 15 Mg Tablet 15 Mg PO 1500 Instructions to patient/family Please see electronic discharge instructions given to patient. Clinical Quality Measures DVT/VTE Risk/Contraindication: Risk Factor Score Per Nursin RFS Level Per Nursing on Admit: 4+=Very High AMANDEEP GENAO DO Mar 04, 2017 07:39
== END 2017-03-03 14:45 | disposition home or self-care (01) | DRG 189 ==
LOC: EDUNIT# 12:20 → ER 12:22 → 4TH 13:26
PROVIDERS: ADMIT Internal Medicine; ATTEND Family Medicine
DX: J96.22 Acute and chronic respiratory failure with hypercapnia (principal); J18.9 Pneumonia, unspecified organism; J44.1 Chronic obstructive pulmonary disease with (acute) exacerbation; L89.312 Pressure ulcer of right buttock, stage 2; L89.322 Pressure ulcer of left buttock, stage 2; F17.210 Nicotine dependence, cigarettes, uncomplicated; G40.909 Epilepsy, unspecified, not intractable, without status epilepticus; G47.30 Sleep apnea, unspecified
CPT/HCPCS: 36415; 71010; 71020; 80048; 80053; 82805; 83605; 83880; 85007; 85025; 85027; 87040; 94640; 94760; 96365; 96375

== ENCOUNTER 2017-03-05 10:52 | Emergency (ER) | payer MEDICAID ==
[~2017-03-05] VITALS: Ht 185.4 cm; Wt 62.1 kg
[~2017-03-05 10:52] MED LIST changes: +ATOR40TA PO; +CARB200T PO; +CARB200T6 PO; +FLUT12AE4 IH; +FLUT1DIS26 IH; +GABA-488 PO; +GABA600T2 PO; +LAMO100T PO; +PHEN100C11 PO; +TIOT18CA2 IH
--- OUTSIDE RECORDS SUMMARY | 2017-03-05 10:59 | XMS REPORT | Clinical Summary ---
Author Author [facility] Organization [facility] Address Unknown Phone Unavailable Care Team Providers Care Lunchroom Monitor Name Role Phone PCP Unavailable Source Comments Some departments are not documenting in the electronic medical record. If you do not see the information that you expected, contact Release of Information in the Health Information Management department at [phone] for further assistance in locating additional records.[facility] Allergies Active Allergy Reactions Severity Noted Date [...] Problem Noted Date Seizures (HCC) 10/22/2013 Hemiparesis ([facility]) 10/22/2013 Asthma 10/22/2013 COPD (chronic obstructive pulmonary disease) ([facility]) 10/22/2013 Hyperlipidemia 10/22/2013 Weight loss 10/22/2013 Family [...]
--- NOTE | 2017-03-05 11:51 | ED General ---
General Chief Complaint: Trauma-Non Activation Stated Complaint: SKIN ABRASIONS ON NOSE AND LEFT HAND--FALL Nursing Triage Note: PT TO ROOM 6, WITH COMPLAINT OF FALL. PT STATES THAT HE "WENT DOWN" WHILE WALKING IN THE PARKING LOT AT THE [facility]. STATES HE DID NOT TRIP AND WAS NOT LIGHT HEADED BEFORE THE FALL. ALSO STATES HE FELL ON RIGHT SHOULDER. PT WAS RELEASED FROM THE HOSPITAL ON 03/03/17 FROM HAVING PNEUMONIA. SKIN TEARS ON RIGHT HAND, LEFT FORE ARM, AND ABRAISON ON THE NOSE. Nursing Sepsis Screen: No Definite Risk Source of Information: Patient History of Present Illness Time Seen by Provider: 11:46 Initial Comments The patient is a 61-year-old white male known to me. He was admitted earlier this this month with the COPD problems and pneumonia. He is discharged on 03/03. He reports that he was at the [facility] this morning and was walking across the parking lot when he fell without syncope or tripping. 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 He suffered abrasions to the nose and both hands. They went by Dr. Genao's office and he apparently came to the parking lot and told him he needed to come to the emergency room and would need a nasal bone x-ray. The patient reports pain in his neck and pain from the abrasions about the hand. Timing/Duration: 1-3 Hours Allergies and Home Medications Allergies Coded Allergies: aspirin (Unverified Allergy, Mild, DOES NOT WORK WELL W/ OTHER MEDS, ) ibuprofen (Unverified Allergy, Mild, 08/10/15) Home Medications Albuterol Sulfate 2.5 Mg/3 Ml Vial.neb, 2.5 MG NEB 5XD PRN for SHORTNESS OF BREATH, #1 Prescribed by: ARLETH GARRIDO on 03/03/17 1352 Albuterol Sulfate 1 Puff Puff, 2 PUFF IH Q6H PRN for SHORTNESS OF BREATH, #1 1 PUFF = 90 MCG Prescribed by: ARLETH GARRIDO on 03/03/17 1352 Atorvastatin Calcium 40 Mg Tablet, 40 MG PO 0200, (Reported) Carbamazepine 200 Mg Tablet, 400 MG PO 1500, (Reported) TAKES 2 (200MG) TABLETS Carbamazepine 200 Mg Tablet, 200 MG PO 0200,0800,2300, (Reported) Cefdinir 300 Mg Capsule, 300 MG PO BID, #10 Prescribed by: ARLETH GARRIDO on 03/03/17 1343 Fluticasone/Salmeterol 1 Each Blst.w.dev, 1 PUFF IH BID, #1 LAST FILLED 01-25-17 Prescribed by: ARLETH GARRIDO on 03/03/17 1352 Fluticasone/Salmeterol 12 Gm Hfa.aer.ad, 2 PUFF IH BID@08,20, #1 Prescribed by: ARLETH GARRIDO on 03/03/17 1355 Gabapentin 300 Mg Capsule, 300 MG PO 2300, (Reported) Gabapentin 600 Mg Tablet, 600 MG PO 0800,1500, (Reported) Lamotrigine 25 Mg Tablet, 25 MG PO 1500,2300, (Reported) Lamotrigine 100 Mg Tablet, 100 MG PO 1500,0200, (Reported) Meloxicam 15 Mg Tablet, 15 MG PO 1500, (Reported) Phenytoin Sodium Extended 100 Mg Capsule, 200 MG PO 1500, (Reported) TAKES 2 (100MG) CAPSULES Phenytoin Sodium Extended 100 Mg Capsule, 100 MG PO 0800,2300, (Reported) Tiotropium [place] 1 Inh Aerp, 1 CAP IH HS, #1 Prescribed by: ARLETH GARRIDO on 03/03/17 1352 Constitutional: see HPI EENTM: other Respiratory: cough, dyspnea on exertion, short of breath Cardiovascular: no symptoms reported Gastrointestinal: no symptoms reported Genitourinary: no symptoms reported Musculoskeletal: other (pain in both hands) Skin: other (multiple abrasions) Psychiatric/Neurological: No Symptoms Reported Hematologic/Lymphatic: No Symptoms Reported Immunological/Allergic: no symptoms reported Past Fwcfemx-Qnjfir-Bleico Hx Patient Social History Type Used: Cigarettes Recent Foreign Travel: No Contact w/Someone Who Travel: No Recent Infectious Disease Expo: No Recent Hopitalizations: Yes (RELEASED FROM HOSPITAL 03/03/17) Physical Abuse: No Sexual Abuse: No Immunizations Up To Date PED Vaccines UTD: Yes Surgeries History of Surgeries: Yes Surgeries: Gallbladder Respiratory History of Respiratory Disorde: Yes (tobaccoism) Respiratory Disorders: Asthma, Sleep Apnea, COPD Currently Using CPAP: No Currently Using BIPAP: No Cardiovascular History of Cardiac Disorders: Yes Cardiac Disorders: High Cholesterol Neurological History of Neurological Disord: Yes (post polio syndrome with left-sided deficits) Neurological Disorders: Seizure Disorder Reproductive System Hx Reproductive Disorders: No Sexually Transmitted Disease: No HIV/AIDS: No Gastrointestinal History of Gastrointestinal Di: No Musculoskeletal History of Musculoskeletal Dis: No Endocrine History of Endocrine Disorders: No HEENT Loss of Vision: Denies Hearing Impairment: Denies Cancer History of Cancer: No Psychosocial History of Psychiatric Problem: No Suicide Risk Score: 0 Integumentary History of Skin or Integumenta: No Blood Transfusions History of Blood Disorders: No Adverse Reaction to a Blood Tr: No Family Medical History Significant Family History: No Pertinent Family Hx, Heart Disease Family Medial History: Hypercholesterolemia 19 FATHER Hypertension 19 FATHER Physical Exam Vital Signs Vital Sign - Last 12Hours 03/05/17 11:20 Temp 98.7 Pulse 70 Resp 22 B/P (MAP) 128/81 (97) Pulse Ox 95 O2 Delivery Nasal Cannula O2 Flow Rate 4.00 Capillary Refill : Less Than 3 Seconds General Appearance: Other (disheveled older white male with strong odor of tobacco products) Eyes: Bilateral Eye Normal Inspection HEENT: Other (superficial abrasion over the near entirety of the mid nose) Neck: Normal Inspection Respiratory: Decreased Breath Sounds (distant breath sounds without wheezing) Cardiovascular: Regular Rate, Rhythm, No Edema, No Gallop, No JVD, No Murmur, Normal Peripheral Pulses Gastrointestinal: Normal Bowel Sounds, No Organomegaly, No Pulsatile Mass, Non Tender, Soft Back: Normal Inspection, No CVA Tenderness, No Vertebral Tenderness Comments There were abrasions over the dorsum of both hands. These were shallow. There was a flap of avulsed skin over the mid dorsum of the left hand. Abrasions of the fingertips were noted as well. Laceration Repair : Suture Size: 5-0 Progress/Results/Core Measures Suspected Sepsis Recent Fever Within 48 Hours: No Infection Criteria Present: Documented Infection New/Unexplained Altered Menta: No Sepsis Screen: No Definite Risk Sepsis Diagnosis: SIRS Temperature:98.7 Pulse: 70 Respiratory Rate: 22 Blood Pressure 128 /81 Mean: 97 Results/Orders My Orders Orders - IRAIDA PRATT MD Cervical Spine 3 Views Or Less (03/05/17 11:44) Nasal Bones 3 Views (03/05/17 11:44) Shoulder, Right, 3 Views (03/05/17 12:04) Vital Signs/I&O Vital Sign - Last 12Hours 12/6/17 11:20 Temp 98.7 Pulse 70 Resp 22 B/P (MAP) 128/81 (97) Pulse Ox 95 O2 Delivery Nasal Cannula O2 Flow Rate 4.00 Capillary Refill : Less Than 3 Seconds Blood Pressure Mean: 97 Departure Communication (Admissions) Progress Notes 1256 the x-rays returned with no new pathology. 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 The nurses were instructed to place antibiotic ointment and an occlusive wrap on the abrasion at the right distal ulna. They were to moisten and tease the avulsion flap on the dorsum of the left hand into a more anatomic position and to secure it with Steri-Strips. Cosleep Impression Impression: Primary Impression: fall in parking lot Additional Impression: multiple abrasions Disposition: 01 HOME, SELF-CARE Condition: Improved Departure-Patient Inst. Decision time for Depature: 12:55 Referrals: AMANDEEP GENAO DO (PCP/Family) Primary Care Physician Patient Instructions: Skin Abrasions (DC) Add. Discharge Instructions: All discharge instructions reviewed with patient and/or family. Voiced understanding. Keep wounds clean and dry. IRAIDA PRATT MD Mar 05, 2017 11:51
--- NOTE | 2017-03-05 12:40 | Diagnostic Imaging Report ---
EXAMINATION: Three views of the nasal bones. INDICATION: Fall. FINDINGS: No nasal bone fracture is identified. IMPRESSION: No fracture is seen. Dictated by: Dictated on workstation # [id number]
--- NOTE | 2017-03-05 12:40 | Diagnostic Imaging Report ---
EXAMINATION: 3 views of the right shoulder. INDICATION: Fall. FINDINGS: There is a severe joint space narrowing with evidence of arteriosclerosis and cyst formation compatible with osteoarthritis. The acromioclavicular joint demonstrate no significant arthritic changes. No fracture or dislocation is noted. IMPRESSION: Advanced degenerative changes of the right glenohumeral joint probably secondary to old injury. Dictated by: Dictated on workstation # [id number]
--- NOTE | 2017-03-05 12:42 | Diagnostic Imaging Report ---
EXAMINATION: Three views of the cervical spine. INDICATION: Fall. FINDINGS: There is mild anterior translation of C3 over C4. The lordotic curvature is reversed in the lower cervical spine. The vertebral body heights are preserved. Severe disc height loss at C5-6 and moderate disc height loss at C6-7 is seen. Posterior osteophytes at C6-7 and C7-T1 are noted. There is mild left convexity curvature noted on the AP projection. IMPRESSION: Advanced degenerative changes. Mild anterior translation of C3 over C4 is probably degenerative in etiology. Dictated by: Dictated on workstation # [id number]
[2017-03-05] MEDS ORDERED: HYDROcodone/APAP 5 MG/325 MG (LORTAB) TAB PO ONE (13:15)
[2017-03-05 13:24] VITALS: BP 138/84
== END 2017-03-05 13:24 | disposition home or self-care (01) ==
LOC: EDUNIT# 10:52 → ER 10:54
DX: S00.31XA Abrasion of nose, initial encounter (principal); S60.511A Abrasion of right hand, initial encounter; S60.512A Abrasion of left hand, initial encounter; G47.30 Sleep apnea, unspecified; E78.00 Pure hypercholesterolemia, unspecified; G40.909 Epilepsy, unspecified, not intractable, without status epilepticus; J44.9 Chronic obstructive pulmonary disease, unspecified; Z87.01 Personal history of pneumonia (recurrent); W18.30XA Fall on same level, unspecified, initial encounter; Y92.481 Parking lot as the place of occurrence of the external cause; Y93.01 Activity, walking, marching and hiking
CPT/HCPCS: 70160; 72040; 73030

== ENCOUNTER 2017-03-09 15:59 | Inpatient (IN) | payer MEDICAID ==
[2017-03-09] VITALS (19 sets, daily range): BP systolic 82–151; BP diastolic 49–106
[~2017-03-09] VITALS: Ht 188 cm; Wt 76.5 kg
[2017-03-09] MEDS ORDERED: RT-ALBUTEROL/IPRATROPIUM 3 ML (DUONEB) VIAL ONE (16:03)
--- OUTSIDE RECORDS SUMMARY | 2017-03-09 16:03 | XMS REPORT | Clinical Summary ---
Author Author [facility] Organization [facility] Address Unknown Phone Unavailable Care Team Providers Care Nitroglycerin Supervisor Name Role Phone PCP Unavailable Source Comments Some departments are not documenting in the electronic medical record. If you do not see the information that you expected, contact Release of Information in the Health Information Management department at [phone] for further assistance in locating additional records.[facility] Allergies Active Allergy Reactions Severity Noted Date [...] Problem Noted Date Seizures (HCC) 10/22/2013 Hemiparesis ([facility]) 10/22/2013 Asthma 10/22/2013 COPD (chronic obstructive pulmonary disease) ([facility]) 10/22/2013 Hyperlipidemia 10/22/2013 Weight loss [...]
[2017-03-09] MEDS ORDERED: NS IV 1000 ML 1,000 ML IV ONE ×2 (16:08→18:24)
[2017-03-09] MEDS ORDERED: RT-ALBUTEROL SULF 2.5 MG/3 ML PRE-MIX VIAL INH STA (16:08)
[2017-03-09] MEDS ORDERED: LORazepam INJ 2 MG/ML (ATIVAN) VIAL ONE (16:12)
[2017-03-09] MEDS ORDERED: methylPREDNISolone 125 MG (Solu-MEDROL) VIAL IVP ONE (16:15)
[2017-03-09] MEDS ORDERED: RT-IPRATROPIUM (ATROVENT) 0.5MG/2.5ML AMP IH ONE (16:15)
[2017-03-09 16:24] LABS: BASOPHILS # (AUTO) 0.1 10^3/uL (0.0-0.1); BASOPHILS % (AUTO) 0 % (0-10); EOSINOPHILS # (AUTO) 0.2 10^3/uL (0.0-0.3); EOSINOPHILS % (AUTO) 1 % (0-10); LYMPHOCYTES # (AUTO) 1.1 X 10^3 (1.0-4.0); LYMPHOCYTES % (AUTO) 4 % (12-44); MEAN CORPUSCULAR HEMOGLOBIN 30 PG (25-34); MEAN CORPUSCULAR HGB CONC 32 G/DL (32-36); MEAN CORPUSCULAR VOLUME 93 FL (80-99); MEAN PLATELET VOLUME 10.7 FL (7.4-10.4); MONOCYTES # (AUTO) 2.3 X 10^3 (0.0-1.0); MONOCYTES % (AUTO) 7 % (0-12); NEUTROPHILS # (AUTO) 26.8 X 10^3 (1.8-7.8); NEUTROPHILS % (AUTO) 88 % (42-75); PLATELET COUNT 292 10^3/uL (130-400); RED CELL DISTRIBUTION WIDTH 14.9 % (10.0-14.5)
[2017-03-09 16:26] LABS: WHITE BLOOD COUNT 30.5 10^3/uL (4.3-11.0)
--- NOTE | 2017-03-09 16:29 | Diagnostic Imaging Report ---
EXAMINATION: Chest radiograph, portable AP view. DATE: 03/09/2017 at 1615 hours. INDICATION: 61-year-old male, shortness of breath. COMPARISON: 03/03/2017. FINDINGS: Heart size and mediastinal contours appear unchanged. There is no identified pneumothorax. There is no large pleural effusion. There are predominantly interstitial opacities in the perihilar regions and mid lung zones, bilaterally, which are a change since comparison exam. There are end-stage right glenohumeral degenerative changes. IMPRESSION: New predominantly interstitial opacities in the bilateral midlung zones and perihilar regions. Differential diagnostic considerations would include atypical infection, interstitial edema and pneumonitis. Dictated by: Dictated on workstation # [id number]
[2017-03-09 16:34] LABS: BAND NEUTROPHILS 1 %; LYMPHOCYTES % (MANUAL) 6 %; NEUTROPHILS % (MANUAL) 85 %
[2017-03-09] MEDS ORDERED: LEVOFLOXACIN 750 MG/150 ML IV 150 ML IV ONE (16:45)
[2017-03-09] MEDS ORDERED: LORazepam INJ 2 MG/ML (ATIVAN) VIAL IVP ONE (16:45)
[2017-03-09 16:58] LABS: ALANINE AMINOTRANSFERASE 9 U/L (0-55); ALBUMIN 3.7 GM/DL (3.2-4.5); ANION GAP 12 MMOL/L (5-14); ASPARTATE AMINO TRANSFERASE 11 U/L (5-34); BILIRUBIN,TOTAL 0.5 MG/DL (0.1-1.0); BLOOD UREA NITROGEN 9 MG/DL (7-18); BUN/CREATININE RATIO 17; CALCIUM 8.9 MG/DL (8.5-10.1); CARBON DIOXIDE 32 MMOL/L (21-32); CHLORIDE 88 MMOL/L (98-107); CREATININE SERUM 0.54 MG/DL (0.60-1.30); GFR ESTIMATED > 60; GLUCOSE 76 MG/DL (70-105); POTASSIUM 4.4 MMOL/L (3.6-5.0); SODIUM 132 MMOL/L (135-145); TOTAL PROTEIN 7.2 GM/DL (6.4-8.2); hs C REACTIVE PROTEIN > 15.00 MG/DL (0.00-0.50)
[2017-03-09 17:20] LABS: ABG BASE EXCESS 8.6 MMOL/L (-2.5-2.5); ABG HCO3 35 MMOL/L (23-27); ABG OXYGEN SATURATION 95 % (94-100); ABG PCO2 67 MMHG (35-45); ABG PO2 68 MMHG (79-93); ABG TCO2 36.7 MMOL/L (21.0-31.0)
[2017-03-09 17:21] LABS: ABG PH 7.33 (7.37-7.43)
[2017-03-09 17:22] LABS: ALLENS TEST POSITIVE; PATIENT TEMP 97.5
--- NOTE | 2017-03-09 17:41 | ED General ---
General Chief Complaint: Respiratory Problems Stated Complaint: SOB Nursing Triage Note: TO ED PER W/C WITH O2 AT 4LNC REPORTS HAS HAD INCREASE OF SOA HAS NOT SMOKED FOR SEVERAL DAYS. Nursing Sepsis Screen: No Definite Risk Source of Information: Patient, Old Records Exam Limitations: No Limitations (STEFAN HERNANDEZ MD) History of Present Illness Time Seen by Provider: 16:01 Initial Comments This 61-year-old gentleman presents to the emergency room in respiratory distress. His oxygen saturation on arrival is 81 percent on his home O2. He has history of COPD and pneumonia. He is alert and answering questions appropriately. He continued to smoke until 2 days ago. (STEFAN HERNANDEZ MD) Allergies and Home Medications Allergies Coded Allergies: aspirin (Unverified Allergy, Mild, DOES NOT WORK WELL W/ OTHER MEDS, ) ibuprofen (Unverified Allergy, Mild, 08/10/15) Home Medications Albuterol Sulfate 2.5 Mg/3 Ml Vial.neb, 2.5 MG NEB 5XD PRN for SHORTNESS OF BREATH, (Reported) Albuterol Sulfate 1 Puff Puff, 2 PUFF IH Q6H PRN for SHORTNESS OF BREATH, ( Reported) 1 PUFF = 90 MCG Atorvastatin Calcium 40 Mg Tablet, 40 MG PO 0200, (Reported) Carbamazepine 200 Mg Tablet, 400 MG PO 1500, (Reported) TAKES 2 (200MG) TABLETS Carbamazepine 200 Mg Tablet, 200 MG PO 0200,0800,2300, (Reported) Fluticasone/Salmeterol 1 Each Blst.w.dev, 1 PUFF IH BID, #1 LAST FILLED 01-25-17 Prescribed by: ARLETH GARRIDO on 03/03/17 1352 Gabapentin 300 Mg Capsule, 300 MG PO 2300, (Reported) Gabapentin 600 Mg Tablet, 600 MG PO 0800,1500, (Reported) Lamotrigine 25 Mg Tablet, 25 MG PO 1500,2300, (Reported) Lamotrigine 100 Mg Tablet, 100 MG PO 1500,0200, (Reported) Meloxicam 15 Mg Tablet, 15 MG PO 1500, (Reported) Phenytoin Sodium Extended 100 Mg Capsule, 200 MG PO 1500, (Reported) TAKES 2 (100MG) CAPSULES Phenytoin Sodium Extended 100 Mg Capsule, 100 MG PO 0800,2300, (Reported) Tiotropium [place] 1 Inh Aerp, 1 CAP IH HS, (Reported) Constitutional: see HPI, No fever EENTM: no symptoms reported Respiratory: see HPI Cardiovascular: no symptoms reported Gastrointestinal: no symptoms reported Genitourinary: no symptoms reported Musculoskeletal: no symptoms reported Skin: no symptoms reported Psychiatric/Neurological: No Symptoms Reported Hematologic/Lymphatic: No Symptoms Reported Immunological/Allergic: no symptoms reported (STEFAN HERNANDEZ MD) Past Phjojrk-Wzmbom-Hdiysb Hx Patient Social History Alcohol Use: Occasionally Uses Recreational Drug Use: Yes (not current, 15 years ago-ETOH and PO drugs) Smoking Status: Current Everyday Smoker Type Used: Cigarettes Recent Foreign Travel: No Contact w/Someone Who Travel: No Recent Infectious Disease Expo: No Recent Hopitalizations: Yes (RELEASED FROM HOSPITAL 03/03/17) (STEFAN HERNANDEZ MD) Immunizations Up To Date PED Vaccines UTD: Yes (STEFAN HERNANDEZ MD) Surgeries History of Surgeries: Yes Surgeries: Gallbladder (STEFAN HERNANDEZ MD) Respiratory History of Respiratory Disorde: Yes (tobaccoism) Respiratory Disorders: Asthma, Sleep Apnea, COPD Currently Using CPAP: No Currently Using BIPAP: No (STEFAN HERNANDEZ MD) Cardiovascular History of Cardiac Disorders: Yes Cardiac Disorders: High Cholesterol (STEFAN HERNANDEZ MD) Neurological History of Neurological Disord: Yes (post polio syndrome with left-sided deficits) Neurological Disorders: Seizure Disorder (STEFAN HERNANDEZ MD) Reproductive System Hx Reproductive Disorders: No Sexually Transmitted Disease: No HIV/AIDS: No (STEFAN HERNANDEZ MD) Gastrointestinal History of Gastrointestinal Di: No (STEFAN HERNANDEZ MD) Musculoskeletal History of Musculoskeletal Dis: No (STEFAN HERNANDEZ MD) Endocrine History of Endocrine Disorders: No (STEFAN HERNANDEZ MD) HEENT Loss of Vision: Denies Hearing Impairment: Denies (STEFAN HERNANDEZ MD) Cancer History of Cancer: No (STEFAN HERNANDEZ MD) Psychosocial History of Psychiatric Problem: No (STEFAN HERNANDEZ MD) Integumentary History of Skin or Integumenta: No (STEFAN HERNANDEZ MD) Blood Transfusions History of Blood Disorders: No Adverse Reaction to a Blood Tr: No (STEFAN HERNANDEZ MD) Family Medical History Significant Family History: No Pertinent Family Hx, Heart Disease Family Medial History: Hypercholesterolemia 19 FATHER Hypertension 19 FATHER (STEFAN HERNANDEZ MD) Family Medial History: Hypercholesterolemia 19 FATHER Hypertension 19 FATHER (KALEN BELTRAN) Physical Exam-Suspected Sepsis Physical Exam Vital Signs Vital Sign - Last 12Hours 03/09/17 03/09/17 16:00 18:45 Temp 97.5 Pulse 94 Resp 32 B/P (MAP) 161/81 (107) Pulse Ox 81 O2 Delivery Nasal Cannula O2 Flow Rate 4.00 FiO2 40 (KALEN BELTRAN) Vital Signs Capillary Refill : Less Than 3 Seconds (STEFAN HERNANDEZ MD) Blood Pressure Mean: 107 General Appearance: WD/WN, Severe Distress, Thin HEENT: PERRL/EOMI, TMs Normal, Normal ENT Inspection, Pharynx Normal Neck: Normal Inspection Respiratory: Accessory Muscle Use, Crackles, Decreased Breath Sounds, Respiratory Distress, Rhonci, Wheezing, Other (Very poor air movement with significant work of breathing) Cardiovascular: No Edema, No Murmur, Tachycardia Gastrointestinal: Non Tender, Soft Extremity: Normal Inspection, No Pedal Edema Neurologic/Psychiatric: Alert, Oriented x3, No Motor/Sensory Deficits, Normal Mood/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, 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 Norm as Tested Skin: normal color, warm/dry (STEFAN HERNANDEZ MD) Focused Exam Evaluation Lactate Level Laboratory Tests 03/09/17 16:10: Lactic Acid Level 0.87 (KALEN BELTRAN) Time of Focused Exam: 19:31 Respiratory: Chest Non Tender, No Accessory Muscle Use, No Respiratory Distress , Crackles, Decreased Breath Sounds, Wheezing, Other (oral tracheally intubated on people 5 international units one to 3.3 and peak pressures at about 25-27 cm water pressure.) Cardiovascular: Regular Rate, Rhythm, No Edema, Normal Peripheral Pulses Capillary Refill: Less Than 3 Seconds Peripheral Pulses: 2+ Radial Pulses (R), 2+ Radial Pulses (L) Skin: normal color, warm/dry Lactic Acid Level Laboratory Tests Test 03/09/17 16:10 Lactic Acid Level 0.87 MMOL/L (0.50-2.00) (KALEN BELTRAN) Lumen: triple Central Line Procedure: betadine prep (chlorhexidine), sterile drapes applied, sterile dressing applied Position: internal jugular (R) Anesthesia: Lidocaine Volume Anesthetic (ccs): 2 Complications: none Post Position: sutured, good blood return, position confirmed w/ CXR Progress Patient is orotracheally intubated and sedated on propofol. He was given a dose of Versed as well as local lidocaine. Site was identified easily on ultrasound at the bedside. He was dressed out and sterile drapes and everyone in the room or sterile garb, headgear, masks with eye pak in the typical fashion. He had introduced needle in the typical fashion and good blood draw. The needle was witnessed going into the right IJ on ultrasound visually. The introducer wire was then placed slowly and carefully through the needle until a little bit of ectopic beats were noted on telemetry. The wire was then backed off and then the needle was removed and the patient and the dilator was placed after a small gera was made with an 11 blade scalpel at the skin. After the dilator was removed triple lumen was placed and carefully guided down to 16 cm the predetermined measurement. A Biopatch was then applied and the catheter was secured in place using the provided silk suture. A sterile dressing was then applied all 3 lines were with drawing blood easily and were flushed prior to being introduced into the patient. Patient tolerated the procedure very well. Chest x-ray was obtained afterwards to confirm location of ET tube and triple lumen central catheter and was found to be in good position. (KALEN BELTRAN) Date of ETT Placement: Mar 09, 2017 Time of ETT Placement: 18:12 Intubation Method: orotracheal Tube Size: 7.5 Medications: Etomidate, Propofol, Succinylcholine Positive End Tide CO2: Yes Breath Sounds after Intubation: bilateral-equal Intubation Complications: no complications Post Intubation Xray: Yes Progress Patient received Ativan 0.5 mg prior to intubation and was significantly sedated with Ativan alone. For intubation he received etomidate 20 mg followed by initiation of a propofol drip and succinylcholine 100 mg. He required suctioning of copious amounts of purulent sputum before intubation could be performed. Anterior vocal cords made intubation somewhat difficult. He was successfully intubated at 18:12 on the first pass of the endotracheal tube. (STEFAN HERNANDEZ MD) Laceration Repair : Suture Size: 5-0 (STEFAN HERNANDEZ MD) Progress/Results/Core Measures Suspected Sepsis Recent Fever Within 48 Hours: No Infection Criteria Present: None New/Unexplained Altered Menta: No Sepsis Screen: No Definite Risk Sepsis Diagnosis: SIRS Temperature:97.5 Pulse: 91 Respiratory Rate: 32 Laboratory Tests 03/09/17 16:10: White Blood Count 30.5*H 03/10/17 03:50: White Blood Count 23.2H 03/11/17 04:05: White Blood Count 9.0 Blood Pressure 151 /106 Mean: 107 Laboratory Tests 03/09/17 16:10: Lactic Acid Level 0.87 Laboratory Tests 03/09/17 16:10: Platelet Count 292 03/09/17 16:35: Creatinine 0.54L, Total Bilirubin 0.5 03/10/17 03:50: Platelet Count 224, Creatinine 0.58L, Total Bilirubin 0.4 03/11/17 04:05: Platelet Count 188, Creatinine 0.52L, Total Bilirubin 0.2 (STEFAN HERNANDEZ MD) Results/Orders Lab Results Laboratory Tests Test 03/09/17 16:10 03/09/17 16:35 03/09/17 17:10 Range/Units White Blood Count 30.5 *H 4.3-11.0 10^3/uL Red Blood Count 4.30 L 4.35-5.85 10^6/uL Hemoglobin 12.9 #L 13.3-17.7 G/DL Hematocrit 40 40-54 % Mean Corpuscular Volume 93 80-99 FL Mean Corpuscular Hemoglobin 30 25-34 PG Mean Corpuscular Hemoglobin Concent 32 32-36 G/DL Red Cell Distribution Width 14.9 H 10.0-14.5 % Platelet Count 292 130-400 10^3/uL Mean Platelet Volume 10.7 H 7.4-10.4 FL Neutrophils (%) (Auto) 88 H 42-75 % Lymphocytes (%) (Auto) 4 L 12-44 % Monocytes (%) (Auto) 7 0-12 % Eosinophils (%) (Auto) 1 0-10 % Basophils (%) (Auto) 0 0-10 % Neutrophils # (Auto) 26.8 H 1.8-7.8 X 10^3 Lymphocytes # (Auto) 1.1 1.0-4.0 X 10^3 Monocytes # (Auto) 2.3 H 0.0-1.0 X 10^3 Eosinophils # (Auto) 0.2 0.0-0.3 10^3/uL Basophils # (Auto) 0.1 0.0-0.1 10^3/uL Neutrophils % (Manual) 85 % Lymphocytes % (Manual) 6 % Monocytes % (Manual) 8 % Band Neutrophils 1 % Hypersegmented Neutrophils SLIGHT Toxic Granulation 1+ Blood Morphology Comment NORMAL Lactic Acid Level 0.87 0.50-2.00 MMOL/L B-Type Natriuretic Peptide 208.6 H <100.0 PG/ML Sodium Level 132 L 135-145 MMOL/L Potassium Level 4.4 3.6-5.0 MMOL/L Chloride Level 88 L 98-107 MMOL/L Carbon Dioxide Level 32 21-32 MMOL/L Anion Gap 12 5-14 MMOL/L Blood Urea Nitrogen 9 7-18 MG/DL Creatinine 0.54 L 0.60-1.30 MG/DL Estimat Glomerular Filtration Rate > 60 BUN/Creatinine Ratio 17 Glucose Level 76 70-105 MG/DL Calcium Level 8.9 8.5-10.1 MG/DL Total Bilirubin 0.5 0.1-1.0 MG/DL Aspartate Amino Transf (AST/SGOT) 11 5-34 U/L Alanine Aminotransferase (ALT/SGPT) 9 0-55 U/L Alkaline Phosphatase 133 40-136 U/L C-Reactive Protein High Sensitivity > 15.00 H 0.00-0.50 MG/DL Total Protein 7.2 6.4-8.2 GM/DL Albumin 3.7 3.2-4.5 GM/DL Blood Gas Puncture Site RT. RADIAL Blood Gas Patient Temperature 97.5 Arterial Blood pH 7.33 *L 7.37-7.43 Arterial Blood Partial Pressure CO2 67 H 35-45 MMHG Arterial Blood Partial Pressure O2 68 L 79-93 MMHG Arterial Blood HCO3 35 H 23-27 MMOL/L Arterial Blood Total CO2 36.7 H 21.0-31.0 MMOL/L Arterial Blood Oxygen Saturation 95 94-100 % Arterial Blood Base Excess 8.6 H -2.5-2.5 MMOL/L Johan Test POSITIVE Blood Gas Ventilator Setting NO Blood Gas Inspired Oxygen 45% BIPAP (KALEN BELTRAN) Medications Given in ED Current Medications Medications Dose Ordered Sig/Porfirio Route Start Time Stop Time Status Last Admin Dose Admin Ipratropium [place] 0.5 mg ONCE ONCE IH 03/09/17 16:15 03/09/17 16:16 DC 03/09/17 16:21 0.5 MG Levofloxacin/ Dextrose 150 ml @ 100 mls/hr ONCE ONCE IV 03/09/17 16:45 03/09/17 18:14 DC 03/09/17 17:10 100 MLS/HR Lorazepam 0.5 mg ONCE ONCE IVP 03/09/17 16:45 03/09/17 16:46 DC 03/09/17 16:47 0.5 MG Methylprednisolone Sodium Succinate 125 mg ONCE ONCE IVP 03/09/17 16:15 03/09/17 16:16 DC 03/09/17 16:14 125 MG Propofol 100 ml @ ud STK-MED ONCE IV 03/09/17 17:49 03/09/17 17:52 DC 03/09/17 18:08 14 MLS/HR Sodium Chloride 1,000 ml @ 0 mls/hr Q0M ONCE IV 03/09/17 16:08 03/09/17 16:10 DC 03/09/17 16:13 1,000 MLS/HR Sodium Chloride 1,000 ml @ ud STK-MED ONCE .ROUTE 03/09/17 18:19 03/09/17 18:21 DC 03/09/17 18:22 1,000 MLS/HR (KALEN BELTRAN) Vital Signs/I&O Vital Sign - Last 12Hours 03/09/17 03/09/17 03/09/17 03/09/17 16:00 16:22 17:04 18:08 Temp 97.5 Pulse 94 91 Resp 32 32 B/P (MAP) 161/81 (107) 148/91 Pulse Ox 81 96 O2 Delivery Nasal Cannula O2 Flow Rate 4.00 45.00 03/09/17 18:45 Pulse 77 Resp 14 Pulse Ox 99 FiO2 40 (KALEN BELTRAN) Vital Signs/I&O Capillary Refill : Less Than 3 Seconds (STEFAN HERNANDEZ MD) Blood Pressure Mean: 107 Diagnostic Imaging Diagonstic Imaging: Xray Plain Films/CT/US/NM/MRI: chest Comments Chest x-ray viewed by me and report reviewed. See report below: NAME: JOEL QUIJANO [facility] REC#: [id number] PT STATUS: REG ER : 1955 PHYSICIAN: STEFAN HERNANDEZ MD ADMIT DATE: 03/09/17/ER Signed Date of Exam: 03/09/17 CHEST 1 VIEW, AP/PA ONLY EXAMINATION: Chest radiograph, portable AP view. DATE: 03/09/2017 at 1615 hours. INDICATION: 61-year-old male, shortness of breath. COMPARISON: 03/03/2017. FINDINGS: Heart size and mediastinal contours appear unchanged. There is no identified pneumothorax. There is no large pleural effusion. There are predominantly interstitial opacities in the perihilar regions and mid lung zones, bilaterally, which are a change since comparison exam. There are end-stage right glenohumeral degenerative changes. IMPRESSION: New predominantly interstitial opacities in the bilateral midlung zones and perihilar regions. Differential diagnostic considerations would include atypical infection, interstitial edema and pneumonitis. Dictated by: Dictated on workstation # [id number] Dict: 03/09/17 1621 Trans: 03/09/17 1632 Interpreted by: XANDER CARBONE MD Electronically signed by: XANDER CARBONE MD 03/09/17 1632 (STEFAN HERNANDEZ MD) Diagonstic Imaging: Xray Plain Films/CT/US/NM/MRI: chest (1v) Comments Postprocedure x-ray shows the ET tube about 2-2-1/2 cm above the martha and good position. Both lungs are inflated with similar parenchyma noted on prior x- ray. There is a central line through the right IJ sitting just at the right atrium entrance from the superior vena cava. There is also a gastric tube in good position in the stomach. Reviewed: Reviewed by Me (KALEN BELTRAN) Critical Care Note Critical Care Start Time: 16:01 Progress Patient was in respiratory distress on arrival. BiPAP was attempted as soon as possible after he arrived. He received a DuoNeb treatment prior to the BiPAP a [place]. Patient did not tolerate BiPAP well and demanded that it be removed. An hour-long nebulizer treatment was initiated. Solu-Medrol 125 mg was given. It was apparent that the patient could not maintain his work of breathing for a prolonged period of time without further support. I had a lengthy discussion with patient and his girlfriend about options which included BiPAP, BiPAP with anxiolytic, intubation, and comfort care. Patient eventually did consent to BiPAP with anxiolytic. He never would commit one way or the other in regard to intubation. He had a conversation alone with his girlfriend and still did not provide a clear answer on whether he would consent to intubation or not. Patient was given Ativan 0.5 mg IV with application of the BiPAP. He then tolerated BiPAP but became extremely somnolent. He was asked a final time about whether he would approve of intubation if BiPAP failed, his last remark regarding intubation before he became too somnolent to respond was, "We'll have to ask Tabatha." This, it was also witnessed by nursing staff. Tabatha is his girlfriend of 17 years. She states that based on prior conversations with Joel she believes he would want to be intubated if there was hope for extubation in the short-term. However, she reports he specifically stated to her on the prior admission he did not want CPR. A modified code order for no cardiac code was placed on the bridging orders set. Patient was found to have bilateral pneumonia along with respiratory failure and COPD exacerbation. He had severe leukocytosis and marked elevation of CRP. Sepsis related to pneumonia was presumed. Because of respiratory failure he meets severe sepsis criteria. Antibiotic therapy was initiated with Levaquin and Zosyn in the emergency room. Blood cultures and lactic acid were collected prior to antibiotic administration. He received 2 L of normal saline in boluses to complete his 30 ML per kilogram bolus per guidelines. The first liter was infused prior to intubation. A significant trial on BiPAP and an hour-long nebulizer treatment was attempted. Patient was extremely somnolent and exhibiting features of respiratory fatigue despite these efforts. Ultimately the decision was made to intubate after discussion with Dr. Swenson and Dr. Bernal who both believed his chances of survival were very poor without intubation. This was discussed again with Tabatha who agreed he should be intubated. Patient was intubated and a controlled fashion using RSI with etomidate, succinylcholine, and propofol drip. There was copious purulent sputum suctioned during intubation. 18:58 - Attempts at subclavian central line were made by Myesha Ordaz but were not successful. Dr. Beltran is now attempting an IJ line. Care of the patient is being transferred to Dr. Beltran until he is transferred to the ICU. (STEFAN HERNANDEZ MD) Departure Communication (Admissions) Time/Spoke to Admitting Phy: 17:[address] Swenson Time/Spoke to Consulting Phy: 17:36 Communication/Consulting Dr. Bernal (STEFAN HERNANDEZ MD) Impression Impression: Primary Impression: Severe sepsis Additional Impressions: Respiratory failure Qualified Codes: J96.01 - Acute respiratory failure with hypoxia; J96.02 - Acute respiratory failure with hypercapnia Bilateral pneumonia Qualified Codes: J18.9 - Pneumonia, unspecified organism COPD exacerbation Disposition: ADMITTED INPATIENT Condition: Stable Admissions Decision to Admit Reason: Admit from ER (General) Decision to Admit/Date: Mar 09, 2017 Time/Decision to Admit Time: 16:01 (STEFAN HERNANDEZ MD) Departure-Patient Inst. Referrals: AMANDEEP GENAO DO (PCP/Family) Primary Care Physician Copy Copies To 1: AMANDEEP GENAO DO Copies To 2: RANI BERNAL JOSHUA T MD Mar 09, 2017 17:41 KALEN BELTRAN Mar 09, 2017 19:36
[2017-03-09] MEDS ORDERED: PROPOFOL DRIP (ICU) 100 ML IV ONE (17:49)
[2017-03-09] MEDS ORDERED: NS IV 1000 ML 1,000 ML ONE (18:19)
[2017-03-09] MEDS ORDERED: fentaNYL INJECTION 100 MCG/2 ML AMP IVP ONE (18:30)
[2017-03-09] MEDS ORDERED: PIPERACILLIN SODIUM/TAZOBACTAM 4.5 GM in NS (IVPB) 100 ML IV ONE (18:30)
[2017-03-09] MEDS ORDERED: NS (IVPB) 100 ML ONE (19:03)
[2017-03-09] MEDS ORDERED: PIPERACILLIN/TAZO 4.5 GM VIAL (ZOSYN) IV ONE (19:03)
[2017-03-09 19:57] LABS: ABG BASE EXCESS 5.1 MMOL/L (-2.5-2.5); ABG HCO3 32 MMOL/L (23-27); ABG OXYGEN SATURATION 91 % (94-100); ABG PO2 61 MMHG (79-93); ABG TCO2 34.6 MMOL/L (21.0-31.0)
[2017-03-09 19:59] LABS: ABG PH 7.24 (7.37-7.43)
[2017-03-09 20:00] LABS: ABG PCO2 78 MMHG (35-45); ALLENS TEST POSITIVE; PATIENT TEMP 97.9
[2017-03-09] MEDS: NS IV 1000 ML 1,000 ML IV SCH ×2 (20:12→20:49)
[2017-03-09] MEDS: PHENYLEPHRINE INJECTION 10 MG in D5W IV SOLUTION (EXCEL) 250 ML IV SCH (20:12)
--- NOTE | 2017-03-09 20:12 | Diagnostic Imaging Report ---
PATIENT HISTORY: Intubation and central line placement. TECHNIQUE: Frontal view of the chest. COMPARISON: Radiograph from the same day. FINDINGS: The endotracheal tube is approximately 7.5 cm from the martha. The enteric tube projects over the stomach. The tip of the right central line projects over the low SVC. There is mild cardiomegaly. There are diffuse interstitial opacities throughout the lungs, bilaterally, predominantly in the perihilar regions. No pneumothorax or pleural effusion is seen. IMPRESSION: 1. The endotracheal tube is approximately 7.5 cm from the martha. The right central line projects over the low SVC. 2. Persistent interstitial opacities, bilaterally, with perihilar predominance. Most likely secondary to edema, although infection is in the differential. Dictated by: Dictated on workstation # [id number]
[2017-03-09] MEDS ORDERED: NS IV PRN (20:15)
[2017-03-09] MEDS ORDERED: NS IV 1000 ML 1,000 ML IV SCH (20:15)
[2017-03-09] MEDS ORDERED: RT-ALBUTEROL/IPRATROPIUM 3 ML (DUONEB) VIAL INH PRN (20:30)
[2017-03-09] MEDS: NOREPINEPHRINE 4 MG in D5W IV SOLUTION (EXCEL) 250 ML IV SCH (21:04)
[2017-03-09 21:38] LABS: ABG BASE EXCESS 5.5 MMOL/L (-2.5-2.5); ABG HCO3 32 MMOL/L (23-27); ABG OXYGEN SATURATION 95 % (94-100); ABG PCO2 66 MMHG (35-45); ABG PO2 67 MMHG (79-93); ABG TCO2 33.7 MMOL/L (21.0-31.0)
[2017-03-09 21:39] LABS: ALLENS TEST YES-POS; PATIENT TEMP 97.9
[2017-03-09] MEDS ORDERED: SUCCINYLCHOLINE INJ 100 MG/5 ML SYR INJ ONE (22:00)
[2017-03-09] MEDS ORDERED: ROCURONIUM 50 MG/5 ML (ZEMURON) VIAL IV ONE (22:00)
[2017-03-09] MEDS ORDERED: ETOMIDATE IV SOLN 20 MG/10 ML VIAL IV ONE (22:00)
[2017-03-09] MEDS ORDERED: fentaNYL INJECTION 100 MCG/2 ML AMP INJ ONE (22:00)
[2017-03-09] MEDS ORDERED: MIDAZOLAM 5 MG/5 ML (VERSED) VIAL INJ ONE (22:00)
[2017-03-09] MEDS: RT-ALBUTEROL/IPRATROPIUM 3 ML (DUONEB) VIAL INH SCH (22:03)
[2017-03-09] MEDS: VANCOMYCIN INJECTION 1,000 MG in NS (IVPB) 250 ML IV SCH (22:26)
[2017-03-09] MEDS ORDERED: GABAPENTIN 600 MG (NEURONTIN) TAB ONE (23:34)
[2017-03-09] MEDS ORDERED: carBAMazepine 200 MG (TEGretol) TAB PO ONE (23:34)
[2017-03-09] MEDS ORDERED: lamoTRIgine 25 MG (LaMICtal) TAB ONE (23:34)
[2017-03-09] MEDS: PHENYTOIN 100 MG (DILANTIN) CAP PO SCH (23:42)
[2017-03-10] VITALS (57 sets, daily range): BP systolic 83–130; BP diastolic 48–88
[2017-03-10] MEDS: NS IV 1000 ML 1,000 ML IV SCH ×6 (00:12→18:35)
[2017-03-10] MEDS: PHENYLEPHRINE INJECTION 10 MG in D5W IV SOLUTION (EXCEL) 250 ML IV SCH ×6 (00:22→21:12)
[2017-03-10] MEDS: PIPERACILLIN SODIUM/TAZOBACTAM 4.5 GM in NS (IVPB) 100 ML IV SCH ×3 (00:39→17:53)
[2017-03-10] MEDS: RT-ALBUTEROL/IPRATROPIUM 3 ML (DUONEB) VIAL INH SCH ×6 (03:02→22:13)
[2017-03-10 03:41] LABS: BILIRUBIN,URINE NEGATIVE (NEGATIVE); KETONES,URINE 1+ (NEGATIVE); LEUKOCYTE ESTERASE ,URINE 1+ (NEGATIVE); NITRITE,URINE NEGATIVE (NEGATIVE); PH,URINE 6 (5-9); PROTEIN,URINE 2+ (NEGATIVE); UROBILINOGEN,URINE NORMAL (NORMAL)
[2017-03-10 04:23] LABS: BASOPHILS % (AUTO) 0 % (0-10); EOSINOPHILS % (AUTO) 0 % (0-10); LYMPHOCYTES # (AUTO) 1.2 X 10^3 (1.0-4.0); LYMPHOCYTES % (AUTO) 5 % (12-44); MEAN CORPUSCULAR HEMOGLOBIN 31 PG (25-34); MEAN CORPUSCULAR HGB CONC 33 G/DL (32-36); MEAN CORPUSCULAR VOLUME 94 FL (80-99); MEAN PLATELET VOLUME 9.3 FL (7.4-10.4); MONOCYTES # (AUTO) 1.3 X 10^3 (0.0-1.0); MONOCYTES % (AUTO) 6 % (0-12); NEUTROPHILS # (AUTO) 20.6 X 10^3 (1.8-7.8); NEUTROPHILS % (AUTO) 89 % (42-75); PLATELET COUNT 224 10^3/uL (130-400); RED BLOOD COUNT 3.18 10^6/uL (4.35-5.85); RED CELL DISTRIBUTION WIDTH 14.5 % (10.0-14.5); WHITE BLOOD COUNT 23.2 10^3/uL (4.3-11.0)
[2017-03-10 04:44] LABS: ALANINE AMINOTRANSFERASE 8 U/L (0-55); ALBUMIN 2.9 GM/DL (3.2-4.5); ANION GAP 7 MMOL/L (5-14); ASPARTATE AMINO TRANSFERASE 9 U/L (5-34); BILIRUBIN,TOTAL 0.4 MG/DL (0.1-1.0); BLOOD UREA NITROGEN 10 MG/DL (7-18); BUN/CREATININE RATIO 17; CALCIUM 8.1 MG/DL (8.5-10.1); CARBON DIOXIDE 31 MMOL/L (21-32); CHLORIDE 95 MMOL/L (98-107); CREATININE SERUM 0.58 MG/DL (0.60-1.30); GFR ESTIMATED > 60; GLUCOSE 137 MG/DL (70-105); MAGNESIUM 1.7 MG/DL (1.8-2.4); PHOSPHORUS 2.3 MG/DL (2.3-4.7); POTASSIUM 4.1 MMOL/L (3.6-5.0); SODIUM 133 MMOL/L (135-145); TOTAL PROTEIN 5.7 GM/DL (6.4-8.2)
[2017-03-10 04:57] LABS: ABG BASE EXCESS 6.4 MMOL/L (-2.5-2.5); ABG HCO3 32 MMOL/L (23-27); ABG OXYGEN SATURATION 88 % (94-100); ABG PCO2 60 MMHG (35-45); ABG PH 7.35 (7.37-7.43); ABG PO2 51 MMHG (79-93); ABG TCO2 33.9 MMOL/L (21.0-31.0)
[2017-03-10 04:59] LABS: ALLENS TEST YES-POS; PATIENT TEMP 97.8
[2017-03-10] MEDS: MAGNESIUM 1 GM/100 ML IVPB 100 ML IV SCH ×3 (05:16→06:09)
[2017-03-10] MEDS: lamoTRIgine 25 MG (LaMICtal) TAB PO SCH ×3 (05:55→22:26)
[2017-03-10] MEDS: GABAPENTIN 600 MG (NEURONTIN) TAB PO SCH ×3 (05:55→22:26)
[2017-03-10] MEDS: PHENYTOIN 100 MG (DILANTIN) CAP PO SCH ×3 (05:56→18:30)
[2017-03-10] MEDS: carBAMazepine 100 MG (TEGretol) CHEW PO SCH ×3 (05:58→22:32)
[2017-03-10] MEDS: KCL 20 MEQ TAB (K-DUR) PO SCH (06:00)
[2017-03-10] MEDS: POTASSIUM CL 10MEQ/50ML IVPB 50 ML IV SCH (06:00)
--- NOTE | 2017-03-10 06:41 | Pulmonary Consultation ---
History of Present Illness History of Present Illness Date of Consultation 03/10/17 06:32 Time Seen by Provider: 06:32 Date of Admission History of Present Illness 61yo with hx of COPD and current smoker presented to the ED with severe respiratory distress and was intubated in the ED. He has not required mechanical ventilation in the past. Pt is currently sedated on vent. Girlfriend is at bedside. All information obtained from chart and girlfriend. Pt has had copious amounts of secreations via ET tube. I am consulted for ICU management. Allergies and Home Medications Allergies Coded Allergies: aspirin (Unverified Allergy, Mild, DOES NOT WORK WELL W/ OTHER MEDS, ) ibuprofen (Unverified Allergy, Mild, 08/10/15) Home Medications Albuterol Sulfate 2.5 Mg/3 Ml Vial.neb, 2.5 MG NEB 5XD PRN for SHORTNESS OF BREATH, #1 Prescribed by: ARLETH GARRIDO on 03/03/17 1352 Albuterol Sulfate 1 Puff Puff, 2 PUFF IH Q6H PRN for SHORTNESS OF BREATH, #1 1 PUFF = 90 MCG Prescribed by: ARLETH GARRIDO on 03/03/17 1352 Atorvastatin Calcium 40 Mg Tablet, 40 MG PO 0200, (Reported) Carbamazepine 200 Mg Tablet, 400 MG PO 1500, (Reported) TAKES 2 (200MG) TABLETS Carbamazepine 200 Mg Tablet, 200 MG PO 0200,0800,2300, (Reported) Cefdinir 300 Mg Capsule, 300 MG PO BID, #10 Prescribed by: ARLETH GARRIDO on 03/03/17 1343 Fluticasone/Salmeterol 1 Each Blst.w.dev, 1 PUFF IH BID, #1 LAST FILLED 01-25-17 Prescribed by: ARLETH GARRIDO on 03/03/17 1352 Fluticasone/Salmeterol 12 Gm Hfa.aer.ad, 2 PUFF IH BID@, #1 Prescribed by: ARLETH GARRIDO on 03/03/17 1355 Gabapentin 300 Mg Capsule, 300 MG PO 2300, (Reported) Gabapentin 600 Mg Tablet, 600 MG PO 0800,1500, (Reported) Lamotrigine 25 Mg Tablet, 25 MG PO 1500,2300, (Reported) Lamotrigine 100 Mg Tablet, 100 MG PO 1500,0200, (Reported) Meloxicam 15 Mg Tablet, 15 MG PO 1500, (Reported) Phenytoin Sodium Extended 100 Mg Capsule, 200 MG PO 1500, (Reported) TAKES 2 (100MG) CAPSULES Phenytoin Sodium Extended 100 Mg Capsule, 100 MG PO 0800,2300, (Reported) Tiotropium [place] 1 Inh Aerp, 1 CAP IH HS, #1 Prescribed by: ARLETH GARRIDO on 03/03/17 1352 Past Afsuofg-Bxaviq-Ymgblc Hx Patient Social History Alcohol Use: Past History Recreational Drug Use: Yes (not current, 15 years ago-ETOH and PO drugs) Smoking Status: Current Everyday Smoker Type Used: Cigarettes Recent Foreign Travel: No Contact w/Someone Who Travel: No Recent Infectious Disease Expo: No Recent Hopitalizations: Yes (RELEASED FROM HOSPITAL 03/03/17) Immunizations Up To Date PED Vaccines UTD: Yes Surgeries History of Surgeries: Yes Surgeries: Gallbladder Respiratory History of Respiratory Disorde: Yes (tobaccoism) Respiratory Disorders: Asthma, Sleep Apnea, COPD Currently Using CPAP: No Currently Using BIPAP: No Cardiovascular History of Cardiac Disorders: Yes Cardiac Disorders: High Cholesterol Neurological History of Neurological Disord: Yes (post polio syndrome with left-sided deficits) Neurological Disorders: Seizure Disorder Reproductive System Hx Reproductive Disorders: No Sexually Transmitted Disease: No HIV/AIDS: No Gastrointestinal History of Gastrointestinal Di: No Musculoskeletal History of Musculoskeletal Dis: No Musculoskeletal Disorders: Arthritis Endocrine History of Endocrine Disorders: No HEENT Loss of Vision: Denies Hearing Impairment: Denies Cancer History of Cancer: No Psychosocial History of Psychiatric Problem: No Integumentary History of Skin or Integumenta: No Blood Transfusions History of Blood Disorders: No Adverse Reaction to a Blood Tr: No Family Medical History Significant Family History: No Pertinent Family Hx, Heart Disease Family Medial History: Hypercholesterolemia 19 FATHER Hypertension 19 FATHER Review of Systems Time Seen by Provider: 06:50 Exam Exam Vital Signs Date Time Temp Pulse Resp B/P (MAP) Pulse Ox O2 Delivery O2 Flow Rate FiO2 03/10/17 06:15 64 19 114/65 (81) 92 Mechanical Ventilator 30.00 03/10/17 06:00 64 19 110/61 (77) 91 Mechanical Ventilator 30.00 03/10/17 05:45 67 21 104/61 (75) 91 Mechanical Ventilator 30.00 03/10/17 05:30 67 22 104/56 (72) 91 Mechanical Ventilator 30.00 03/10/17 05:15 63 20 101/58 (72) 99 Mechanical Ventilator 30.00 03/10/17 05:00 64 33 114/63 (80) 91 Mechanical Ventilator 30.00 03/10/17 04:45 63 26 108/57 (74) 91 Mechanical Ventilator 30.00 03/10/17 04:39 68 20 93 30 03/10/17 04:30 65 24 117/60 (79) 90 Mechanical Ventilator 30.00 03/10/17 04:15 61 19 102/57 (72) 91 Mechanical Ventilator 30.00 03/10/17 04:00 97.8 63 20 115/83 (94) 90 Mechanical Ventilator 30.00 03/10/17 04:00 91 Mechanical Ventilator 30.00 03/10/17 03:45 64 28 107/62 (77) 91 Mechanical Ventilator 30.00 03/10/17 03:30 65 21 97/63 (74) 91 Mechanical Ventilator 30.00 03/10/17 03:15 64 22 100/56 (71) 91 Mechanical Ventilator 30.00 03/10/17 03:03 58 19 96 Mechanical Ventilator 30.00 03/10/17 03:03 58 20 96 40 03/10/17 03:00 58 20 98/54 (69) 96 Mechanical Ventilator 40.00 03/10/17 02:51 63 20 98/68 95 Mechanical Ventilator 40.00 03/10/17 02:45 66 23 98/88 (91) 98 Mechanical Ventilator 40.00 03/10/17 02:30 58 20 116/64 (81) 98 Mechanical Ventilator 40.00 03/10/17 02:15 58 19 100/56 (71) 98 Mechanical Ventilator 40.00 03/10/17 02:00 58 20 103/61 (75) 98 Mechanical Ventilator 40.00 03/10/17 01:45 59 20 100/54 (69) 98 Mechanical Ventilator 40.00 03/10/17 01:30 61 20 94/53 (67) 97 Mechanical Ventilator 40.00 03/10/17 01:15 59 20 96/52 (67) 97 Mechanical Ventilator 40.00 03/10/17 01:00 60 19 93/52 (66) 97 Mechanical Ventilator 40.00 03/10/17 01:00 60 03/10/17 00:45 61 20 89/51 (64) 96 Mechanical Ventilator 40.00 03/10/17 00:30 64 19 83/48 (60) 96 Mechanical Ventilator 40.00 03/10/17 00:15 64 20 99/59 (72) 96 Mechanical Ventilator 40.00 03/10/17 00:12 64 20 97 40 03/10/17 00:00 97.6 66 19 93/56 (68) 96 Mechanical Ventilator 40.00 03/10/17 00:00 96 Mechanical Ventilator 40.00 03/09/17 23:45 70 19 94/55 (68) 96 Mechanical Ventilator 40.00 03/09/17 23:30 68 20 95/55 (68) 97 Mechanical Ventilator 40.00 03/09/17 23:15 70 20 91/55 (67) 97 Mechanical Ventilator 40.00 03/09/17 23:00 73 19 91/54 (66) 96 Mechanical Ventilator 40.00 03/09/17 22:45 76 20 100/57 (71) 95 Mechanical Ventilator 40.00 03/09/17 22:30 80 20 123/73 (90) 96 Mechanical Ventilator 40.00 03/09/17 22:15 95 23 140/70 (93) 98 Mechanical Ventilator 40.00 03/09/17 22:04 64 26 97 40 03/09/17 22:00 62 19 109/64 (79) 98 Mechanical Ventilator 40.00 03/09/17 21:45 66 20 96/64 (75) 96 Mechanical Ventilator 40.00 03/09/17 21:30 64 19 97/57 (70) 95 Mechanical Ventilator 40.00 03/09/17 21:15 64 20 92/57 (69) 95 Mechanical Ventilator 40.00 03/09/17 21:00 67 19 86/49 (61) 93 Mechanical Ventilator 40.00 03/09/17 20:45 68 20 82/50 (61) 92 Mechanical Ventilator 40.00 03/09/17 20:30 71 28 88/53 (65) 92 Mechanical Ventilator 40.00 03/09/17 20:26 70 20 92 40 03/09/17 20:15 98.7 76 18 114/64 (81) 97 Mechanical Ventilator 40.00 03/09/17 20:15 76 03/09/17 20:05 95 Mechanical Ventilator 40 03/09/17 19:47 97.5 72 18 92 Mechanical Ventilator 45.00 03/09/17 18:45 77 14 99 40 03/09/17 18:25 97.5 03/09/17 18:08 148/91 03/09/17 17:04 91 32 45.00 03/09/17 16:22 96 03/09/17 16:00 97.5 94 32 161/81 (107) 81 Nasal Cannula 4.00 I & O 03/10/17 07:00 Intake Total 3721 ml Output Total 1175 ml Balance 2546 ml General Appearance: WD/WN, Severe Distress, Thin HEENT: PERRL/EOMI, TMs Normal, Normal ENT Inspection, Pharynx Normal Neck: Normal Inspection Respiratory: Chest Non Tender, No Accessory Muscle Use, No Respiratory Distress , Crackles, Decreased Breath Sounds, Wheezing, Other (oral tracheally intubated on people 5 international units one to 3.3 and peak pressures at about 25-27 cm water pressure.) Cardiovascular: Regular Rate, Rhythm, No Edema, Normal Peripheral Pulses Capillary Refill: Less Than 3 Seconds Peripheral Pulses: 2+ Radial Pulses (R), 2+ Radial Pulses (L) Extremity: Normal Inspection, No Pedal Edema Neurologic/Psychiatric: Alert, Oriented x3, No Motor/Sensory Deficits, Normal 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 -Continue Vanco, and Zosyn -IVF with sepsis protocol -Page culture Acute on chronic respiratory failure -Continue ventilatory support for now -pt will benefit from home vent to mask upon discharge. Severe COPD oxygen dependent with current tobacco use and COPDAE -SVNs -Start Solumedrol hx of seizures -seizure precautions Hypomag -replace 255 Clinical Quality Measures DVT/VTE Risk/Contraindication: Risk Factor Score Per Nursin RFS Level Per Nursing on Admit: 4+=Very High RANI PACHECO DO Mar 10, 2017 06:41
[2017-03-10] MEDS ORDERED: INFLUENZA TRIvalent 2017-2018 0.5 ML/45 MCG SYR IM ONE (07:00)
--- NOTE | 2017-03-10 07:39 | History & Physicial ---
History of Present Illness History of Present Illness Reason for visit/HPI history by girlfriend of 17 years since patient on vent Patient couldn't breathe brought to the emergency room. Patient respiratory distress. Pulse ox on 81 with home oxygen on Patient stopped smoking 2 days ago. Patient have BiPAP and tab daily anxiety attack and was taken off. This was tried again and not succeeding. Patient put on vent. Surgeries gallbladder Date of Admission Mar 09, 2017 at 18:31 Time Seen by Provider: 07:35 I consulted on this patient on 03/10/17 07:35 Attending Physician Micky Genao DO Admitting Physician Micky Genao DO Consult Allergies and Home Medications Allergies Coded Allergies: aspirin (Unverified Allergy, Mild, DOES NOT WORK WELL W/ OTHER MEDS, ) ibuprofen (Unverified Allergy, Mild, 08/10/15) Home Medications Albuterol Sulfate 2.5 Mg/3 Ml Vial.neb, 2.5 MG NEB 5XD PRN for SHORTNESS OF BREATH, #1 Prescribed by: ARLETH GARRDIO on 03/03/17 1352 Albuterol Sulfate 1 Puff Puff, 2 PUFF IH Q6H PRN for SHORTNESS OF BREATH, #1 1 PUFF = 90 MCG Prescribed by: ARLETH GARRIDO on 03/03/17 1352 Atorvastatin Calcium 40 Mg Tablet, 40 MG PO 0200, (Reported) Carbamazepine 200 Mg Tablet, 400 MG PO 1500, (Reported) TAKES 2 (200MG) TABLETS Carbamazepine 200 Mg Tablet, 200 MG PO 0200,0800,2300, (Reported) Cefdinir 300 Mg Capsule, 300 MG PO BID, #10 Prescribed by: ARLETH GARRIDO on 03/03/17 1343 Fluticasone/Salmeterol 1 Each Blst.w.dev, 1 PUFF IH BID, #1 LAST FILLED 01-25-17 Prescribed by: ARLETH GARRIDO on 03/03/17 1352 Fluticasone/Salmeterol 12 Gm Hfa.aer.ad, 2 PUFF IH BID@08,20, #1 Prescribed by: ARLETH GARRIDO on 03/03/17 1355 Gabapentin 300 Mg Capsule, 300 MG PO 2300, (Reported) Gabapentin 600 Mg Tablet, 600 MG PO 0800,1500, (Reported) Lamotrigine 25 Mg Tablet, 25 MG PO 1500,2300, (Reported) Lamotrigine 100 Mg Tablet, 100 MG PO 1500,0200, (Reported) Meloxicam 15 Mg Tablet, 15 MG PO 1500, (Reported) Phenytoin Sodium Extended 100 Mg Capsule, 200 MG PO 1500, (Reported) TAKES 2 (100MG) CAPSULES Phenytoin Sodium Extended 100 Mg Capsule, 100 MG PO 0800,2300, (Reported) Tiotropium [place] 1 Inh Aerp, 1 CAP IH HS, #1 Prescribed by: ARLETH GARRIDO on 03/03/17 1352 Past Bentkcy-Jvunxc-Jgkncm Hx Patient Social History Marrital Status: single Employed/Student: unemployed Alcohol Use: Past History Recreational Drug Use: Yes (not current, 15 years ago-ETOH and PO drugs) Smoking Status: Current Everyday Smoker Type Used: Cigarettes Physical Abuse Screen: No Sexual Abuse: No Recent Foreign Travel: No Contact w/other who traveled: No Recent Hopitalizations: Yes (RELEASED FROM HOSPITAL 03/03/17) Recent Infectious Disease Expo: No Immunizations Up To Date Pediatric: Yes Surgeries Yes Gallbladder Respiratory Yes (tobaccoism) COPD Currently Using CPAP: No Currently Using BIPAP: No Cardiovascular Yes High Cholesterol 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) Seizure Disorder Reproductive System Hx Reproductive Disorders: No Sexually Transmitted Disease: No HIV/AIDS: No Gastrointestinal No Musculoskeletal No Arthritis Endocrine History of Endocrine Disorders: No HEENT Loss of Vision: Denies Hearing Impairment: Denies Cancer No Psychosocial History of Psychiatric Problem: No Integumentary History of Skin or Integumenta: No Blood Transfusions History of Blood Disorders: No Adverse Reaction to a Blood Tr: No Family Medical History Significant Family History: No Pertinent Family Hx, Heart Disease Family Hx: Hypercholesterolemia 19 FATHER Hypertension 19 FATHER Constitutional: weakness, weight loss EENTM: no symptoms reported Respiratory: dyspnea on exertion, short of breath, wheezing Cardiovascular: no symptoms reported Gastrointestinal: no symptoms reported Genitourinary: no symptoms reported Physical Exam Vital Signs Vital Sign - Last 12Hours 03/09/17 03/09/17 16:00 18:45 Temp 97.5 Pulse 94 Resp 32 B/P (MAP) 161/81 (107) Pulse Ox 81 O2 Delivery Nasal Cannula O2 Flow Rate 4.00 FiO2 40 Capillary Refill : Less Than 3 Seconds General Appearance: Thin, Other (on ventilator) HEENT: Normal ENT Inspection Neck: Normal Inspection Respiratory: No Accessory Muscle Use, No Respiratory Distress, Decreased Breath Sounds Cardiovascular: Regular Rate, Rhythm, No Murmur Gastrointestinal: Non Tender, Soft Assessment/Plan Assessment and Plan pneumonia with severe sepsis. Respiratory failure. History of seizure. Hypomagnesemia. Tobacco usage noncompliant to stopping Problems: Clinical Quality Measures DVT/VTE Risk/Contraindication: Risk Factor Score Per Nursin RFS Level Per Nursing on Admit: 4+=Very High MICKY GENAO DO Mar 10, 2017 07:39
--- NOTE | 2017-03-10 08:13 | Diagnostic Imaging Report ---
INDICATION: Severe sepsis, respiratory failure. TECHNIQUE: Single view chest 5:05 AM. CORRELATION STUDY: 03/09/2017 FINDINGS: Endotracheal tube, enteral feeding tube and right IJ central line all remain in place. Heart size and mediastinum are stable. Perihilar infiltrate versus edema are present. More peripherally, lung lo demonstrate additional areas of diffuse opacities. Most pronounced in the right infrahilar region. Findings however are perhaps slightly improved. Chronic degenerative changes bilateral shoulders. IMPRESSION: 1. Stable support lines and tubes. 2. Persistent bilateral infiltrates overall slightly improved. Vascular congestion along with perihilar infiltrate or edema persisting but improved. Dictated by: Dictated on workstation # [id number]
[2017-03-10] MEDS: VANCOMYCIN INJECTION 1,000 MG in NS (IVPB) 250 ML IV SCH ×2 (08:17→20:32)
[2017-03-10] MEDS: ENOXAPARIN 40 MG/0.4 ML (LOVENOX) SYR SC SCH (08:23)
[2017-03-10] MEDS: NOREPINEPHRINE 4 MG in D5W IV SOLUTION (EXCEL) 250 ML IV SCH (09:46)
[2017-03-10] MEDS ORDERED: NS IV 1000 ML 1,000 ML IV STA (09:48)
[2017-03-10] MEDS ORDERED: ALBU18HF2 INH (09:51)
[2017-03-10] MEDS ORDERED: TIOT18CA2 IH (09:51)
[2017-03-10] MEDS ORDERED: ALBU2.5V4 NEB (09:51)
[2017-03-10] MEDS ORDERED: NOREPINEPHRINE 4 MG/4 ML (LEVOPHED) AMP IV ONE (09:54)
[2017-03-10] MEDS ORDERED: D5W IV SOLUTION (EXCEL) 250 ML IV ONE (09:54)
[2017-03-10] MEDS ORDERED: RT-ALBUINH IH (09:58)
[2017-03-10] MEDS ORDERED: NOREPINEPHRINE 4 MG in D5W IV SOLUTION (EXCEL) 250 ML IV SCH (10:00)
[2017-03-10] MEDS ORDERED: NS 1000 ML IV BAG IV STA (10:37)
[2017-03-10] MEDS: HYDROCORTISONE 100 MG/2 ML (Solu-CORTEF) VIAL IV SCH ×3 (10:46→22:26)
[2017-03-10] MEDS: morphine INJ 4 MG/ML 1 ML (VIAL/SYRINGE) IVP PRN ×2 (11:48→22:32)
[2017-03-10] MEDS: FAMOTIDINE 20 MG (PEPCID) TABLET GT SCH ×2 (15:11→21:31)
[2017-03-10] MEDS ORDERED: VANCOMYCIN 1500 MG/NS 500 ML IVPB IV SCH ×2 (20:00)
[2017-03-11] VITALS (37 sets, daily range): BP systolic 90–155; BP diastolic 55–87
[2017-03-11] MEDS: PHENYTOIN 100 MG (DILANTIN) CAP PO SCH ×4 (00:13→17:05)
[2017-03-11] MEDS: PIPERACILLIN SODIUM/TAZOBACTAM 4.5 GM in NS (IVPB) 100 ML IV SCH ×3 (00:38→16:00)
[2017-03-11] MEDS: PHENYLEPHRINE INJECTION 10 MG in D5W IV SOLUTION (EXCEL) 250 ML IV SCH ×6 (01:22→22:18)
[2017-03-11] MEDS: NS IV 1000 ML 1,000 ML IV SCH ×3 (01:27→20:48)
[2017-03-11] MEDS: RT-ALBUTEROL/IPRATROPIUM 3 ML (DUONEB) VIAL INH SCH ×6 (02:45→22:28)
[2017-03-11 04:14] LABS: ABG BASE EXCESS 3.5 MMOL/L (-2.5-2.5); ABG HCO3 29 MMOL/L (23-27); ABG OXYGEN SATURATION 98 % (94-100); ABG PCO2 57 MMHG (35-45); ABG PO2 105 MMHG (79-93); ABG TCO2 30.9 MMOL/L (21.0-31.0); BASOPHILS % (AUTO) 0 % (0-10); EOSINOPHILS % (AUTO) 0 % (0-10); LYMPHOCYTES # (AUTO) 0.4 X 10^3 (1.0-4.0); LYMPHOCYTES % (AUTO) 5 % (12-44); MEAN CORPUSCULAR HEMOGLOBIN 31 PG (25-34); MEAN CORPUSCULAR HGB CONC 33 G/DL (32-36); MEAN CORPUSCULAR VOLUME 93 FL (80-99); MEAN PLATELET VOLUME 9.5 FL (7.4-10.4); MONOCYTES # (AUTO) 0.4 X 10^3 (0.0-1.0); MONOCYTES % (AUTO) 5 % (0-12); NEUTROPHILS # (AUTO) 8.1 X 10^3 (1.8-7.8); NEUTROPHILS % (AUTO) 90 % (42-75); PLATELET COUNT 188 10^3/uL (130-400); RED BLOOD COUNT 2.94 10^6/uL (4.35-5.85); RED CELL DISTRIBUTION WIDTH 14.9 % (10.0-14.5)
[2017-03-11 04:16] LABS: ALLENS TEST YES-POS; PATIENT TEMP 97.9
[2017-03-11 04:17] LABS: ABG PH 7.32 (7.37-7.43)
[2017-03-11 04:35] LABS: ALANINE AMINOTRANSFERASE < 6 U/L (0-55); ALBUMIN 2.7 GM/DL (3.2-4.5); ANION GAP 9 MMOL/L (5-14); ASPARTATE AMINO TRANSFERASE 9 U/L (5-34); BILIRUBIN,TOTAL 0.2 MG/DL (0.1-1.0); BLOOD UREA NITROGEN 7 MG/DL (7-18); BUN/CREATININE RATIO 13; CALCIUM 7.6 MG/DL (8.5-10.1); CARBON DIOXIDE 26 MMOL/L (21-32); CHLORIDE 104 MMOL/L (98-107); CREATININE SERUM 0.52 MG/DL (0.60-1.30); GFR ESTIMATED > 60; GLUCOSE 134 MG/DL (70-105); MAGNESIUM 1.8 MG/DL (1.8-2.4); PHOSPHORUS 2.1 MG/DL (2.3-4.7); POTASSIUM 3.8 MMOL/L (3.6-5.0); SODIUM 139 MMOL/L (135-145); TOTAL PROTEIN 5.1 GM/DL (6.4-8.2)
[2017-03-11] MEDS: lamoTRIgine 25 MG (LaMICtal) TAB PO SCH ×3 (06:00→21:08)
[2017-03-11] MEDS: KCL 20 MEQ TAB (K-DUR) PO SCH (06:00)
[2017-03-11] MEDS: POTASSIUM CL 10MEQ/50ML IVPB 50 ML IV SCH (06:00)
[2017-03-11] MEDS: HYDROCORTISONE 100 MG/2 ML (Solu-CORTEF) VIAL IV SCH (06:00)
[2017-03-11] MEDS: MAGNESIUM 1 GM/100 ML IVPB 100 ML IV SCH (06:00)
[2017-03-11] MEDS: carBAMazepine 100 MG (TEGretol) CHEW PO SCH ×3 (06:01→21:08)
[2017-03-11] MEDS: GABAPENTIN 600 MG (NEURONTIN) TAB PO SCH ×3 (06:02→21:08)
--- NOTE | 2017-03-11 07:29 | Progress Note (SOAP) ---
Subjective Time Seen by Provider: 07:15 Subjective/Events-last exam patient doing better yesterday. Patient's blood tests improved since yesterday. Chest x-ray shows improvement. White blood cell count 9000 from 30,000. Hemoglobin 9 hematocrit 27. Sepsis. Pneumonia. COPD with acute exacerbation. Respiratory failure. CHF Objective Exam Vital Signs Date Time Temp Pulse Resp B/P (MAP) Pulse Ox O2 Delivery O2 Flow Rate FiO2 03/11/17 06:55 52 20 98 35 03/11/17 06:00 56 19 130/75 (93) 98 Mechanical Ventilator 35.00 03/11/17 05:11 89 29 98 35 03/11/17 05:00 79 33 149/81 (103) 98 Mechanical Ventilator 35.00 03/11/17 04:50 86 30 97 03/11/17 04:20 92 30 94 03/11/17 04:00 100 Mechanical Ventilator 35.00 03/11/17 04:00 97.9 68 21 155/84 (107) 100 Mechanical Ventilator 35.00 03/11/17 03:31 52 20 133/69 99 Mechanical Ventilator 35.00 03/11/17 03:00 50 19 134/74 (94) 98 Mechanical Ventilator 35.00 03/11/17 02:45 49 20 98 35 03/11/17 02:00 46 19 132/70 (90) 98 Mechanical Ventilator 35.00 03/11/17 01:00 48 19 124/66 (85) 97 Mechanical Ventilator 35.00 03/11/17 01:00 48 03/11/17 00:21 52 20 98 35 03/11/17 00:00 97.6 51 19 103/60 (74) 97 Mechanical Ventilator 35.00 03/11/17 00:00 97 Mechanical Ventilator 35.00 03/10/17 23:00 71 23 123/72 (89) 100 Mechanical Ventilator 35.00 03/10/17 22:17 61 24 100 35 03/10/17 22:00 67 26 103/70 (81) 97 Mechanical Ventilator 35.00 03/10/17 21:00 56 20 88/53 (65) 97 Mechanical Ventilator 35.00 03/10/17 20:21 57 20 98 35 03/10/17 20:00 98 Mechanical Ventilator 35.00 03/10/17 20:00 98.6 58 19 101/59 (73) 98 Mechanical Ventilator 35.00 03/10/17 19:00 61 03/10/17 19:00 61 19 115/64 (81) 97 Mechanical Ventilator 35.00 03/10/17 18:59 99.0 03/10/17 18:30 57 20 97 35 03/10/17 18:00 59 19 110/66 (81) 97 Mechanical Ventilator 35.00 03/10/17 17:00 65 20 124/76 (92) 98 Mechanical Ventilator 35.00 03/10/17 16:25 69 24 97 35 03/10/17 16:00 66 22 116/68 (84) 96 Mechanical Ventilator 35.00 03/10/17 16:00 92 Mechanical Ventilator 35.00 03/10/17 15:00 75 27 118/65 (82) 97 Mechanical Ventilator 35.00 03/10/17 14:34 71 26 95 35 03/10/17 14:00 62 20 108/60 (76) 97 Mechanical Ventilator 35.00 03/10/17 13:00 68 20 102/56 (71) 94 Mechanical Ventilator 35.00 03/10/17 13:00 69 03/10/17 12:09 35 03/10/17 12:05 Mechanical Ventilator 35.00 03/10/17 12:00 99.1 03/10/17 12:00 80 24 114/64 (81) 90 Mechanical Ventilator 30.00 03/10/17 12:00 91 Mechanical Ventilator 35.00 03/10/17 11:47 80 22 97 30 03/10/17 11:00 73 21 120/74 (89) 92 Mechanical Ventilator 30.00 03/10/17 10:54 62 20 94 30 03/10/17 10:11 98.9 70 03/10/17 10:00 67 20 99/58 (72) 93 Mechanical Ventilator 30.00 03/10/17 09:00 68 16 97/56 (70) 92 Mechanical Ventilator 30.00 03/10/17 08:30 65 20 93 30 03/10/17 08:00 91 Mechanical Ventilator 30.00 03/10/17 08:00 66 20 110/57 (74) 93 Mechanical Ventilator 30.00 03/10/17 08:00 98.7 I & O 03/11/17 07:00 Intake Total 4559 ml Output Total 2250 ml Balance 2309 ml Capillary Refill : Less Than 3 Seconds General Appearance: No Apparent Distress, Thin HEENT: Normal ENT Inspection, Other (vent in place) Neck: Normal Inspection Respiratory: Chest Non Tender, Lungs Clear, No Accessory Muscle Use, No Respiratory Distress, Decreased Breath Sounds Cardiovascular: Regular Rate, Rhythm, No Murmur Gastrointestinal: non tender, soft Results Lab Laboratory Tests 03/11/17 04:05 Laboratory Tests 03/10/17 17:14: Glucometer 128H 03/10/17 19:16: Vancomycin Level Trough 5.4L 03/11/17 04:05: White Blood Count 9.0, Red Blood Count 2.94L, Hemoglobin 9.0L, Hematocrit 27L, Mean Corpuscular Volume 93, Mean Corpuscular Hemoglobin 31, Mean Corpuscular Hemoglobin Concent 33, Red Cell Distribution Width 14.9H, Platelet Count 188, Mean Platelet Volume 9.5, Neutrophils (%) (Auto) 90H, Lymphocytes (%) (Auto) 5L , Monocytes (%) (Auto) 5, Eosinophils (%) (Auto) 0, Basophils (%) (Auto) 0, Neutrophils # (Auto) 8.1H, Lymphocytes # (Auto) 0.4L, Monocytes # (Auto) 0.4, Eosinophils # (Auto) 0.0, Basophils # (Auto) 0.0, Blood Gas Puncture Site LRAD, Blood Gas Patient Temperature 97.9, Arterial Blood pH 7.32*L, Arterial Blood Partial Pressure CO2 57H, Arterial Blood Partial Pressure O2 105H, Arterial Blood HCO3 29H, Arterial Blood Total CO2 30.9, Arterial Blood Oxygen Saturation 98, Arterial Blood Base Excess 3.5H, Johan Test YES-POS, Blood Gas Ventilator Setting YES, Blood Gas Inspired Oxygen 35%, Sodium Level 139, Potassium Level 3.8, Chloride Level 104, Carbon Dioxide Level 26, Anion Gap 9, Blood Urea Nitrogen 7, Creatinine 0.52L, Estimat Glomerular Filtration Rate > 60, BUN/ Creatinine Ratio 13, Glucose Level 134H, Calcium Level 7.6L, Phosphorus Level 2.1L, Magnesium Level 1.8, Total Bilirubin 0.2, Aspartate Amino Transf (AST/SGOT ) 9, Alanine Aminotransferase (ALT/SGPT) < 6, Alkaline Phosphatase 92, Total Protein 5.1L, Albumin 2.7L Microbiology 03/09/17 Blood Culture - Preliminary, Resulted No growth 03/10/17 MRSA Screen - Final, Complete MRSA not isolated Assessment/Plan Assessment/Plan Assess & Plan/Chief Complaint sepsis. Respiratory failure. COPD with acute exacerbation. Short of air. CHF. Patient comfortable this morning. Patient still on vent. Leukocytosis better Clinical Quality Measures DVT/VTE Risk/Contraindication: Risk Factor Score Per Nursin RFS Level Per Nursing on Admit: 4+=Very High AMANDEEP GENAO DO Mar 11, 2017 07:29
--- NOTE | 2017-03-11 07:57 | Pulmonary Progress Note ---
Subjective Time Seen by Provider: 07:58 Subjective/Events-last exam Pt appears to be doing better. Exam Exam Vital Signs Date Time Temp Pulse Resp B/P (MAP) Pulse Ox O2 Delivery O2 Flow Rate FiO2 03/11/17 06:55 52 20 98 35 03/11/17 06:00 56 19 130/75 (93) 98 Mechanical Ventilator 35.00 03/11/17 05:11 89 29 98 35 03/11/17 05:00 79 33 149/81 (103) 98 Mechanical Ventilator 35.00 03/11/17 04:50 86 30 97 03/11/17 04:20 92 30 94 03/11/17 04:00 100 Mechanical Ventilator 35.00 03/11/17 04:00 97.9 68 21 155/84 (107) 100 Mechanical Ventilator 35.00 03/11/17 03:31 52 20 133/69 99 Mechanical Ventilator 35.00 03/11/17 03:00 50 19 134/74 (94) 98 Mechanical Ventilator 35.00 03/11/17 02:45 49 20 98 35 03/11/17 02:00 46 19 132/70 (90) 98 Mechanical Ventilator 35.00 03/11/17 01:00 48 19 124/66 (85) 97 Mechanical Ventilator 35.00 03/11/17 01:00 48 03/11/17 00:21 52 20 98 35 03/11/17 00:00 97.6 51 19 103/60 (74) 97 Mechanical Ventilator 35.00 03/11/17 00:00 97 Mechanical Ventilator 35.00 03/10/17 23:00 71 23 123/72 (89) 100 Mechanical Ventilator 35.00 03/10/17 22:17 61 24 100 35 03/10/17 22:00 67 26 103/70 (81) 97 Mechanical Ventilator 35.00 03/10/17 21:00 56 20 88/53 (65) 97 Mechanical Ventilator 35.00 03/10/17 20:21 57 20 98 35 03/10/17 20:00 98 Mechanical Ventilator 35.00 03/10/17 20:00 98.6 58 19 101/59 (73) 98 Mechanical Ventilator 35.00 03/10/17 19:00 61 03/10/17 19:00 61 19 115/64 (81) 97 Mechanical Ventilator 35.00 03/10/17 18:59 99.0 03/10/17 18:30 57 20 97 35 03/10/17 18:00 59 19 110/66 (81) 97 Mechanical Ventilator 35.00 03/10/17 17:00 65 20 124/76 (92) 98 Mechanical Ventilator 35.00 03/10/17 16:25 69 24 97 35 03/10/17 16:00 66 22 116/68 (84) 96 Mechanical Ventilator 35.00 03/10/17 16:00 92 Mechanical Ventilator 35.00 03/10/17 15:00 75 27 118/65 (82) 97 Mechanical Ventilator 35.00 03/10/17 14:34 71 26 95 35 03/10/17 14:00 62 20 108/60 (76) 97 Mechanical Ventilator 35.00 03/10/17 13:00 68 20 102/56 (71) 94 Mechanical Ventilator 35.00 03/10/17 13:00 69 03/10/17 12:09 35 03/10/17 12:05 Mechanical Ventilator 35.00 03/10/17 12:00 99.1 03/10/17 12:00 80 24 114/64 (81) 90 Mechanical Ventilator 30.00 03/10/17 12:00 91 Mechanical Ventilator 35.00 03/10/17 11:47 80 22 97 30 03/10/17 11:00 73 21 120/74 (89) 92 Mechanical Ventilator 30.00 03/10/17 10:54 62 20 94 30 03/10/17 10:11 98.9 70 03/10/17 10:00 67 20 99/58 (72) 93 Mechanical Ventilator 30.00 03/10/17 09:00 68 16 97/56 (70) 92 Mechanical Ventilator 30.00 03/10/17 08:30 65 20 93 30 03/10/17 08:00 91 Mechanical Ventilator 30.00 03/10/17 08:00 66 20 110/57 (74) 93 Mechanical Ventilator 30.00 03/10/17 08:00 98.7 I & O 03/11/17 07:00 Intake Total 4559 ml Output Total 2250 ml Balance 2309 ml General Appearance: No Apparent Distress, Thin HEENT: Normal ENT Inspection, Other (vent in place) Neck: Normal Inspection Respiratory: Chest Non Tender, Lungs Clear, No Accessory Muscle Use, No Respiratory Distress, Decreased Breath Sounds Cardiovascular: Regular Rate, Rhythm, No Murmur Capillary Refill: Less Than 3 Seconds Peripheral Pulses: 2+ Radial Pulses (R), 2+ Radial Pulses (L) Gastrointestinal: non tender, soft Extremity: Normal Inspection, No Pedal Edema Neurologic/Psychiatric: Alert, Oriented x3, No Motor/Sensory Deficits, Normal Mood/Affect, setter off II-XII Norm as Tested Results Lab Laboratory Tests 03/09/17 16:10 03/09/17 16:35 03/10/17 03:50 03/11/17 04:05 Assessment/Plan Assessment/Plan Pneumonia with severe sepsis. - Vanco,--D/C -Continue Zosyn -IVF with sepsis protocol -Page culture UTI -Abx Acute on chronic respiratory failure -Continue ventilatory support for now -pt will benefit from home vent to mask upon discharge. Severe COPD oxygen dependent with current tobacco use and COPDAE -SVNs -Solumedrol hx of seizures -seizure precautions 233 Clinical Quality Measures DVT/VTE Risk/Contraindication: Risk Factor Score Per Nursin RFS Level Per Nursing on Admit: 4+=Very High RANI PACHECO DO Mar 11, 2017 07:57
[2017-03-11] MEDS: FAMOTIDINE 20 MG (PEPCID) TABLET GT SCH ×2 (08:30→21:08)
[2017-03-11] MEDS: ENOXAPARIN 40 MG/0.4 ML (LOVENOX) SYR SC SCH (08:31)
[2017-03-11] MEDS: FAMOTIDINE 20MG/2ML IV (PEPCID) IV PRN (08:31)
--- NOTE | 2017-03-11 08:52 | Diagnostic Imaging Report ---
EXAMINATION: Portable upright radiograph of the chest. INDICATION: Severe sepsis. FINDINGS: The lungs are hyperinflated. There is interstitial thickening with a likely chronic component seen and improved vascular congestion with minimal right basilar atelectasis or infiltrate. The heart size is normal. No effusion or pneumothorax. The mediastinum and ryan appear unremarkable. There is an ET tube, NG tube, and right IJ line without change. IMPRESSION: Mild right basilar atelectasis or infiltrate. Dictated by: Dictated on workstation # [id number]
[2017-03-11] MEDS: methylPREDNISolone 40 MG/ML (Solu-MEDROL) VIAL IV SCH ×2 (11:40→17:04)
[2017-03-11] MEDS: morphine INJ 4 MG/ML 1 ML (VIAL/SYRINGE) IVP PRN ×3 (11:40→21:07)
[2017-03-12] VITALS (26 sets, daily range): BP systolic 91–160; BP diastolic 55–87
[2017-03-12] MEDS: methylPREDNISolone 40 MG/ML (Solu-MEDROL) VIAL IV SCH ×4 (00:03→17:30)
[2017-03-12] MEDS: PHENYTOIN 100 MG (DILANTIN) CAP PO SCH ×5 (00:03→22:25)
[2017-03-12] MEDS: PIPERACILLIN SODIUM/TAZOBACTAM 4.5 GM in NS (IVPB) 100 ML IV SCH ×3 (00:04→17:30)
[2017-03-12] MEDS: RT-ALBUTEROL/IPRATROPIUM 3 ML (DUONEB) VIAL INH SCH ×6 (02:00→21:51)
[2017-03-12] MEDS: PHENYLEPHRINE INJECTION 10 MG in D5W IV SOLUTION (EXCEL) 250 ML IV SCH ×2 (02:26→05:48)
[2017-03-12 04:49] LABS: BASOPHILS % (AUTO) 0 % (0-10); EOSINOPHILS % (AUTO) 0 % (0-10); LYMPHOCYTES # (AUTO) 0.5 X 10^3 (1.0-4.0); LYMPHOCYTES % (AUTO) 8 % (12-44); MEAN CORPUSCULAR HEMOGLOBIN 31 PG (25-34); MEAN CORPUSCULAR HGB CONC 34 G/DL (32-36); MEAN CORPUSCULAR VOLUME 93 FL (80-99); MEAN PLATELET VOLUME 9.3 FL (7.4-10.4); MONOCYTES # (AUTO) 0.4 X 10^3 (0.0-1.0); MONOCYTES % (AUTO) 6 % (0-12); NEUTROPHILS # (AUTO) 5.4 X 10^3 (1.8-7.8); NEUTROPHILS % (AUTO) 86 % (42-75); PLATELET COUNT 245 10^3/uL (130-400); RED BLOOD COUNT 3.35 10^6/uL (4.35-5.85); RED CELL DISTRIBUTION WIDTH 15.2 % (10.0-14.5); WHITE BLOOD COUNT 6.3 10^3/uL (4.3-11.0)
[2017-03-12 05:12] LABS: ALANINE AMINOTRANSFERASE 9 U/L (0-55); ALBUMIN 3.1 GM/DL (3.2-4.5); ANION GAP 10 MMOL/L (5-14); ASPARTATE AMINO TRANSFERASE 9 U/L (5-34); BILIRUBIN,TOTAL 0.1 MG/DL (0.1-1.0); BLOOD UREA NITROGEN 8 MG/DL (7-18); BUN/CREATININE RATIO 14; CALCIUM 8.9 MG/DL (8.5-10.1); CARBON DIOXIDE 29 MMOL/L (21-32); CHLORIDE 101 MMOL/L (98-107); CREATININE SERUM 0.58 MG/DL (0.60-1.30); GFR ESTIMATED > 60; GLUCOSE 116 MG/DL (70-105); MAGNESIUM 1.9 MG/DL (1.8-2.4); PHOSPHORUS 2.5 MG/DL (2.3-4.7); POTASSIUM 3.9 MMOL/L (3.6-5.0); SODIUM 140 MMOL/L (135-145); TOTAL PROTEIN 6.1 GM/DL (6.4-8.2)
[2017-03-12 05:21] LABS: ABG BASE EXCESS 5.5 MMOL/L (-2.5-2.5); ABG HCO3 31 MMOL/L (23-27); ABG OXYGEN SATURATION 91 % (94-100); ABG PCO2 52 MMHG (35-45); ABG PH 7.38 (7.37-7.43); ABG PO2 55 MMHG (79-93); ABG TCO2 32.1 MMOL/L (21.0-31.0)
[2017-03-12 05:23] LABS: ALLENS TEST YES-POS; PATIENT TEMP 98.1
[2017-03-12] MEDS: KCL 20 MEQ TAB (K-DUR) PO SCH (05:34)
[2017-03-12] MEDS: POTASSIUM CL 10MEQ/50ML IVPB 50 ML IV SCH (05:34)
[2017-03-12] MEDS: MAGNESIUM 1 GM/100 ML IVPB 100 ML IV SCH (05:34)
[2017-03-12] MEDS: carBAMazepine 100 MG (TEGretol) CHEW PO SCH ×2 (05:48→13:31)
[2017-03-12] MEDS: GABAPENTIN 600 MG (NEURONTIN) TAB PO SCH ×3 (05:48→15:12)
[2017-03-12] MEDS: lamoTRIgine 25 MG (LaMICtal) TAB PO SCH ×4 (05:48→22:24)
--- NOTE | 2017-03-12 06:33 | Pulmonary Progress Note ---
Subjective Time Seen by Provider: 06:30 Subjective/Events-last exam Pt is doing better. Exam Exam Vital Signs Date Time Temp Pulse Resp B/P (MAP) Pulse Ox O2 Delivery O2 Flow Rate FiO2 03/12/17 06:00 68 21 134/71 (92) 98 Mechanical Ventilator 30.00 03/12/17 05:00 79 19 131/70 (90) 97 Mechanical Ventilator 30.00 03/12/17 05:00 86 27 96 03/12/17 04:26 86 28 94 30 03/12/17 04:00 97 Mechanical Ventilator 30.00 03/12/17 04:00 80 29 151/86 (107) 95 Mechanical Ventilator 30.00 03/12/17 03:00 54 20 125/69 (87) 95 Mechanical Ventilator 30.00 03/12/17 02:00 49 19 108/63 (78) 97 Mechanical Ventilator 30.00 03/12/17 02:00 49 20 97 30 03/12/17 01:00 53 20 91/55 (67) 97 Mechanical Ventilator 30.00 03/12/17 01:00 53 03/12/17 00:32 53 20 99 30 03/12/17 00:12 98.4 03/12/17 00:00 52 19 95/58 (70) 96 Mechanical Ventilator 30.00 03/12/17 00:00 97 Mechanical Ventilator 30.00 03/11/17 23:00 58 19 98/59 (72) 94 Mechanical Ventilator 30.00 03/11/17 22:28 56 20 95 30 03/11/17 22:00 60 15 138/78 (98) 100 Mechanical Ventilator 30.00 03/11/17 21:00 64 20 138/77 (97) 99 Mechanical Ventilator 30.00 03/11/17 20:48 62 03/11/17 20:00 97 Mechanical Ventilator 30.00 03/11/17 20:00 54 20 118/67 (84) 100 Mechanical Ventilator 30.00 03/11/17 19:40 56 20 90/57 (68) 97 Mechanical Ventilator 30.00 03/11/17 19:20 97.6 03/11/17 19:15 47 20 99 35 03/11/17 19:00 48 20 98/61 (73) 98 Mechanical Ventilator 35.00 03/11/17 19:00 48 03/11/17 18:00 51 20 94/55 (68) 99 Mechanical Ventilator 35.00 03/11/17 17:10 97.0 03/11/17 17:00 54 20 95/61 (72) 98 Mechanical Ventilator 35.00 03/11/17 17:00 54 20 95/61 (72) 98 Mechanical Ventilator 35.00 03/11/17 16:50 100 Mechanical Ventilator 35.00 03/11/17 16:43 61 20 98 35 03/11/17 16:00 64 23 116/70 (85) 99 Mechanical Ventilator 35.00 03/11/17 15:00 71 16 123/67 (85) 99 Mechanical Ventilator 35.00 03/11/17 14:32 60 20 99 35 03/11/17 14:00 61 19 135/80 (98) 100 Mechanical Ventilator 35.00 03/11/17 13:00 54 19 130/71 (90) 97 Mechanical Ventilator 35.00 03/11/17 13:00 53 03/11/17 12:32 57 20 103/63 03/11/17 12:00 65 18 105/60 (75) 98 Mechanical Ventilator 35.00 03/11/17 11:51 100 Mechanical Ventilator 35.00 03/11/17 11:15 98.9 62 19 131/73 (92) 100 Mechanical Ventilator 35.00 03/11/17 11:00 58 21 119/70 (86) 100 Mechanical Ventilator 35.00 03/11/17 10:54 60 20 100 35 03/11/17 10:00 54 20 143/80 (101) 98 Mechanical Ventilator 35.00 03/11/17 09:00 54 19 110/66 (81) 100 Mechanical Ventilator 35.00 03/11/17 08:38 55 20 100 35 03/11/17 08:30 100 Mechanical Ventilator 35.00 03/11/17 08:15 97.8 53 20 123/70 (87) 99 Mechanical Ventilator 35.00 03/11/17 08:00 56 20 130/75 (93) 100 Mechanical Ventilator 35.00 03/11/17 07:00 50 03/11/17 07:00 51 19 114/67 (83) 98 Mechanical Ventilator 35.00 03/11/17 06:55 52 20 98 35 I & O 03/12/17 06:59 Intake Total 1100 ml Output Total 1420 ml Balance -320 ml General Appearance: No Apparent Distress, Thin HEENT: Normal ENT Inspection, Other (vent in place) Neck: Normal Inspection Respiratory: Chest Non Tender, Lungs Clear, No Accessory Muscle Use, No Respiratory Distress, Decreased Breath Sounds Cardiovascular: Regular Rate, Rhythm, No Murmur Capillary Refill: Less Than 3 Seconds Peripheral Pulses: 2+ Radial Pulses (R), 2+ Radial Pulses (L) Gastrointestinal: non tender, soft Extremity: Normal Inspection, No Pedal Edema Neurologic/Psychiatric: Alert, Oriented x3, No Motor/Sensory Deficits, Normal Mood/Affect, rivet heater II-XII Norm as Tested Skin: Normal Color, Warm/Dry Results Lab Laboratory Tests 03/11/17 04:05 03/12/17 04:29 Assessment/Plan Assessment/Plan Pneumonia with severe sepsis. -Continue Zosyn -IVF with sepsis protocol -Page culture UTI -Abx Acute on chronic respiratory failure -Will attempt to wean patient -pt will benefit from home vent to mask upon discharge. Severe COPD oxygen dependent with current tobacco use and COPDAE -SVNs -Solumedrol hx of seizures -seizure precautions 233 Clinical Quality Measures DVT/VTE Risk/Contraindication: Risk Factor Score Per Nursin RFS Level Per Nursing on Admit: 4+=Very High RANI PACHECO DO Mar 12, 2017 06:33
[2017-03-12] MEDS ORDERED: TROUGH ORDER-PHARMACY XX NR (07:00)
[2017-03-12 07:32] LABS: ABG BASE EXCESS 5.6 MMOL/L (-2.5-2.5); ABG HCO3 31 MMOL/L (23-27); ABG OXYGEN SATURATION 95 % (94-100); ABG PCO2 49 MMHG (35-45); ABG PH 7.41 (7.37-7.43); ABG PO2 63 MMHG (79-93); ABG TCO2 32.1 MMOL/L (21.0-31.0)
[2017-03-12 07:34] LABS: ALLENS TEST YES-POS; PATIENT TEMP 96.1
--- NOTE | 2017-03-12 07:36 | Progress Note (SOAP) ---
Subjective Date Seen by Provider: Mar 12, 2017 Time Seen by Provider: 07:25 Subjective/Events-last exam patient doing better today. Patient on the vent. Patient to be extubated today.. White blood cell count 6300 better. Chest x-ray yesterday improvement. Patient alert this morning. Pneumonia with sepsis. UTI. Acute on chronic respiratory failure. Severe COPD with acute exacerbation. Tobaccoism. History of seizures Objective Exam Vital Signs Date Time Temp Pulse Resp B/P (MAP) Pulse Ox O2 Delivery O2 Flow Rate FiO2 03/12/17 06:00 68 21 134/71 (92) 98 Mechanical Ventilator 30.00 03/12/17 05:00 79 19 131/70 (90) 97 Mechanical Ventilator 30.00 03/12/17 05:00 86 27 96 03/12/17 04:26 86 28 94 30 03/12/17 04:00 97 Mechanical Ventilator 30.00 03/12/17 04:00 80 29 151/86 (107) 95 Mechanical Ventilator 30.00 03/12/17 03:00 54 20 125/69 (87) 95 Mechanical Ventilator 30.00 03/12/17 02:00 49 19 108/63 (78) 97 Mechanical Ventilator 30.00 03/12/17 02:00 49 20 97 30 03/12/17 01:00 53 20 91/55 (67) 97 Mechanical Ventilator 30.00 03/12/17 01:00 53 03/12/17 00:32 53 20 99 30 03/12/17 00:12 98.4 03/12/17 00:00 52 19 95/58 (70) 96 Mechanical Ventilator 30.00 03/12/17 00:00 97 Mechanical Ventilator 30.00 03/11/17 23:00 58 19 98/59 (72) 94 Mechanical Ventilator 30.00 03/11/17 22:28 56 20 95 30 03/11/17 22:00 60 15 138/78 (98) 100 Mechanical Ventilator 30.00 03/11/17 21:00 64 20 138/77 (97) 99 Mechanical Ventilator 30.00 03/11/17 20:48 62 03/11/17 20:00 97 Mechanical Ventilator 30.00 03/11/17 20:00 54 20 118/67 (84) 100 Mechanical Ventilator 30.00 03/11/17 19:40 56 20 90/57 (68) 97 Mechanical Ventilator 30.00 03/11/17 19:20 97.6 03/11/17 19:15 47 20 99 35 03/11/17 19:00 48 20 98/61 (73) 98 Mechanical Ventilator 35.00 03/11/17 19:00 48 03/11/17 18:00 51 20 94/55 (68) 99 Mechanical Ventilator 35.00 03/11/17 17:10 97.0 03/11/17 17:00 54 20 95/61 (72) 98 Mechanical Ventilator 35.00 03/11/17 17:00 54 20 95/61 (72) 98 Mechanical Ventilator 35.00 03/11/17 16:50 100 Mechanical Ventilator 35.00 03/11/17 16:43 61 20 98 35 03/11/17 16:00 64 23 116/70 (85) 99 Mechanical Ventilator 35.00 03/11/17 15:00 71 16 123/67 (85) 99 Mechanical Ventilator 35.00 03/11/17 14:32 60 20 99 35 03/11/17 14:00 61 19 135/80 (98) 100 Mechanical Ventilator 35.00 03/11/17 13:00 54 19 130/71 (90) 97 Mechanical Ventilator 35.00 03/11/17 13:00 53 03/11/17 12:32 57 20 103/63 03/11/17 12:00 65 18 105/60 (75) 98 Mechanical Ventilator 35.00 03/11/17 11:51 100 Mechanical Ventilator 35.00 03/11/17 11:15 98.9 62 19 131/73 (92) 100 Mechanical Ventilator 35.00 03/11/17 11:00 58 21 119/70 (86) 100 Mechanical Ventilator 35.00 03/11/17 10:54 60 20 100 35 03/11/17 10:00 54 20 143/80 (101) 98 Mechanical Ventilator 35.00 03/11/17 09:00 54 19 110/66 (81) 100 Mechanical Ventilator 35.00 03/11/17 08:38 55 20 100 35 03/11/17 08:30 100 Mechanical Ventilator 35.00 03/11/17 08:15 97.8 53 20 123/70 (87) 99 Mechanical Ventilator 35.00 03/11/17 08:00 56 20 130/75 (93) 100 Mechanical Ventilator 35.00 I & O 03/12/17 07:00 Intake Total 1100 ml Output Total 1420 ml Balance -320 ml Capillary Refill : Less Than 3 Seconds General Appearance: No Apparent Distress, Thin HEENT: Normal ENT Inspection Neck: Full Range of Motion, Normal Inspection Respiratory: Lungs Clear, No Accessory Muscle Use, No Respiratory Distress, Decreased Breath Sounds Cardiovascular: No Murmur Gastrointestinal: non tender, soft Results Lab Laboratory Tests 03/12/17 04:29: White Blood Count 6.3, Red Blood Count 3.35L, Hemoglobin 10.4L, Hematocrit 31L, Mean Corpuscular Volume 93, Mean Corpuscular Hemoglobin 31, Mean Corpuscular Hemoglobin Concent 34, Red Cell Distribution Width 15.2H, Platelet Count 245, Mean Platelet Volume 9.3, Neutrophils (%) (Auto) 86H, Lymphocytes (%) (Auto) 8L , Monocytes (%) (Auto) 6, Eosinophils (%) (Auto) 0, Basophils (%) (Auto) 0, Neutrophils # (Auto) 5.4, Lymphocytes # (Auto) 0.5L, Monocytes # (Auto) 0.4, Eosinophils # (Auto) 0.0, Basophils # (Auto) 0.0, Sodium Level 140, Potassium Level 3.9, Chloride Level 101, Carbon Dioxide Level 29, Anion Gap 10, Blood Urea Nitrogen 8, Creatinine 0.58L, Estimat Glomerular Filtration Rate > 60, BUN/ Creatinine Ratio 14, Glucose Level 116H, Calcium Level 8.9, Phosphorus Level 2.5 , Magnesium Level 1.9, Total Bilirubin 0.1, Aspartate Amino Transf (AST/SGOT) 9 , Alanine Aminotransferase (ALT/SGPT) 9, Alkaline Phosphatase 84, Total Protein 6.1L, Albumin 3.1L 03/12/17 05:10: Blood Gas Puncture Site R RAD, Blood Gas Patient Temperature 98.1, Arterial Blood pH 7.38, Arterial Blood Partial Pressure CO2 52H, Arterial Blood Partial Pressure O2 55L, Arterial Blood HCO3 31H, Arterial Blood Total CO2 32.1H, Arterial Blood Oxygen Saturation 91L, Arterial Blood Base Excess 5.5H, Johan Test YES-POS, Blood Gas Ventilator Setting YES, Blood Gas Inspired Oxygen 30% 03/12/17 06:59: Microbiology 03/09/17 Blood Culture - Preliminary, Resulted No growth 03/10/17 MRSA Screen - Final, Complete MRSA not isolated Assessment/Plan Assessment/Plan Assess & Plan/Chief Complaint sepsis. Respiratory failure. COPD with acute exacerbation. Short of air. CHF. Patient comfortable this morning. Patient still on vent. Leukocytosis better. . 03/12/17. Sepsis. Respiratory failure. COPD with acute exacerbation. History of tobaccoism. History of seizure. Acute and chronic respiratory failure. UTI. Patient doing better. Patient to be extubated today Clinical Quality Measures DVT/VTE Risk/Contraindication: Risk Factor Score Per Nursin RFS Level Per Nursing on Admit: 4+=Very High AMANEDEP GENAO DO Mar 12, 2017 07:36
[2017-03-12] MEDS: FAMOTIDINE 20MG/2ML IV (PEPCID) IV PRN (08:01)
[2017-03-12] MEDS: ENOXAPARIN 40 MG/0.4 ML (LOVENOX) SYR SC SCH (08:01)
[2017-03-12] MEDS: FAMOTIDINE 20 MG (PEPCID) TABLET GT SCH ×2 (08:02→22:25)
[2017-03-12 08:05] LABS: BILIRUBIN,URINE NEGATIVE (NEGATIVE); KETONES,URINE 1+ (NEGATIVE); LEUKOCYTE ESTERASE ,URINE 2+ (NEGATIVE); NITRITE,URINE NEGATIVE (NEGATIVE); PH,URINE 6 (5-9); PROTEIN,URINE 1+ (NEGATIVE); UROBILINOGEN,URINE NORMAL (NORMAL)
[2017-03-12 08:19] LABS: SQUAMOUS EPITHELIAL CELL,UR 0-2 /HPF
--- NOTE | 2017-03-12 10:09 | Diagnostic Imaging Report ---
INDICATION: Sepsis and respiratory failure Frontal chest obtained at 438 hours a.m. and compared to 03/11/2017. Heart is borderline in size. There is central vascular congestion. There is worsening alveolar infiltrate in the right medial base with some mild infiltrate in the left perihilar region. There is no pneumothorax. ET tube, NG tube, and right IJ catheter are unchanged. IMPRESSION: Mild worsening of infiltrate in right lung base compared to the prior study. There is some infiltrate in the left perihilar region. There is central vascular congestion. Life-support lines are stable. Dictated by: Dictated on workstation # [id number]
[2017-03-12] MEDS: NS IV 1000 ML 1,000 ML IV SCH (13:29)
--- NOTE | 2017-03-12 14:17 | Physical Therapy Evaluation ---
PT Evaluation-General Medical Diagnosis Admission Date Mar 09, 2017 at 18:31 Medical Diagnosis: pneumonia, sepsis Onset Date: Mar 09, 2017 Therapy Diagnosis Therapy Diagnosis: impaired mobility, strength, endurance, ROM Height/Weight Height (Feet): 6 Height (Inches): 2.00 Weight (Pounds): 146 Weight (Ounces): 9.6 Precautions Precautions/Isolations: Seizure, Fall Prevention, Standard Precautions Referral Physician: Micky Feng DO Reason for Referral: Evaluation/Treatment Medical History Pertinent Medical History: Arthritis, COPD Additional Medical History home O2, smoking, high cholesterol, post-polio, seizure disorder, surg ( cholecystectomy) Reviewed History: Yes Social History Current Living Status: Other Family Entry Into Home: Stairs With Railing PT Steps Into Home: 2 Prior/Core FIM Prior Level of Function Functional [place] Measure 0=Not Assessed/NA 4=Minimal Assistance 1=Total Assistance 5=Supervision or Setup 2=Maximal Assistance 6=Modified [place] 3=Moderate Assistance 7=Complete [place] Bed Mobility: 7 Transfers (B,C,W/C) (FIM): 7 Gait: 7 PT Evaluation-Current Subjective Patient in bed pre tx, needs encouragement to participate in PT, wants of refuse at this time so he can finish watching Family Feud. He has no complaints of pain. Patient seems to know very little about his medical history when asked about it or even why he is in the hospital other than he says he had trouble breathing. Pt/Family Goals to be independent at home. Objective Patient Orientation: Person Attachments: Oxygen, Mena Catheter, IV ROM/Strength ROM Lower Extremities impaired generally in the left leg especially in the ankle Strength Lower Extremities 4+/5 gross in the right leg, 3+/5 in the left leg Neuromuscular (Tone, Coordination, Reflexes) NT Sensory Hearing: Functional Sensation Right Lower Extremit: Intact Sensation Left Lower Extremity: Intact Sensation Lower Extremities Patient has no complaints of numbness or tingling. Transfers Functional [place] Measure 0=Not Assessed/NA 4=Minimal Assistance 1=Total Assistance 5=Supervision or Setup 2=Maximal Assistance 6=Modified [place] 3=Moderate Assistance 7=Complete [place] Transfers (B, C, W/C) (FIM): 4 Scootin Rollin Supine to/from Sit: 5 Sit to/from Stand: 4 bed t/f WC(FIM only if WC use): 4 CGA for sit to stand Gait Mode of Locomotion: Walk Anticipated Mode of Locomotion: Walk Gait (FIM): 1 Distance: 5' Gait Level of Assist: 4 Gait Persons Needed: 1 Gait Assistive Device: Handheld Assist Comments/Gait Description patient was unsteady with ambulation and needed min assist for balance, he is very impulsive and doesn't seem aware of difficulties he may have with mobility due to attachments or environment Balance Sitting Static: Normal Sitting Dynamic: Normal Standing Static: Fair Standing Dynamic: Fair Assessment/Needs Patient has impaired mobility, strength, endurance, ROM, is a fall risk. Rehab Potential: Fair PT Short Term Goals Short Term Goals Time Frame: Mar 19, 2017 Transfers (B,C,W/C) (FIM): 5 Gait (FIM): 2 Gait Distance Comment: 50' Gait Level of Assist: 4 Gait Assistive Device: FWW PT Plan Problem List Problem List: Activity Tolerance, Functional Strength, Safety, Balance, Gait, Transfer, Bed Mobility, ROM Treatment/Plan Treatment Plan: Continue Plan of Care Treatment Plan: Bed Mobility, Education, Functional Activity Jessica, Functional Strength, Gait, Safety, Therapeutic Exercise, Transfers Treatment Duration: Mar 19, 2017 Frequency: 6 times per week Estimated Hrs Per Day: .25 hour per day (15-30') Patient and/or Family Agrees t: Yes Safety Risks/Education Patient Education: Gait Training, Transfer Techniques, Correct Positioning, Safety Issues Teaching Recipient: Patient Teaching Methods: Demonstration, Discussion Response to Teaching: Reinforcement Needed Discharge Recommendations Plan Patient will perform bed mobility and transfer training, balance and endurance training, functional strengthening, stair training, gait training, and education , to improve functional mobility and independence at home. Therapy D/C Recommendations: Home w/ Family Support Time/GCodes Time In: 1350 Time Out: 1405 Total Billed Treatment Time: 15 Total Billed Treatment 1 visit EVM 15' CAROLYN EPPS PT Mar 12, 2017 14:17
--- NOTE | 2017-03-12 14:59 | Occupational Therapy Eval ---
OT Evaluation-General/PLF Medical Diagnosis Admission Date Mar 09, 2017 at 18:31 Medical Diagnosis: pneumonia, sepsis Onset Date: Mar 09, 2017 Therapy Diagnosis Therapy Diagnosis: decr self car, decr activ [place], decr funct mob, weakness Height/Weight Height (Feet): 6 Height (Inches): 2.00 Weight (Pounds): 146 Weight (Ounces): 9.6 Precautions Precautions/Isolations: Seizure, Fall Prevention, Standard Precautions Safety Interventions: Notify Family, Place Restraint Referral Physician: Micky Feng DO Referral Reason: Evaluation/Treatment Medical History Pertinent Medical History: Arthritis, COPD, Heart Failure, Post Polio Syndrome (L sided weakness), Smoking Additional Medical History Asthma, sleep apnea. Seizure disorder Current History Admitted through ED with SOB, O2 sats at 81%. Was intubated in ED and off vent this morning. Social History Home: Single Level Current Living Status: Significant Other (girlfriend) Entry Into Home: Stairs With Railing Steps Into Home: 2 ADL-Prior Level of Function ADL PLOF Comments Pt reported that he was able to manage all of his basic ADLs except that girlfriend helped him in the shower so that he didn't fall. He was able to do work around the house until just recently. He said that he is retired and still drives. DME/Equipment: Tub/Shower DME/Equipment Comments No DME Occupation: retired from [employer] Self: Yes OT Current Status Subjective Pt seen in room, up in recliner, agreeable to OT. No pain mentioned. Appearance Alert, cooperative. Mental Status/Objective Attachments: Central Line, Oxygen, Telemetry Current Hand Dominance: Right Upper Extremity ROM Grossly WFL bilat Upper Extremity Strength grossly 4/5 R, 4-/5 L Pt reported post polio weakness on L side Edema: Bilat edema in hands ADL-Treatment ADL-Current Pt was out of bed for the first time today. Able to get a drink of water on his own. Functional [place] Measure 0=Not Assessed/NA 4=Minimal Assistance 1=Total Assistance 5=Supervision or Setup 2=Maximal Assistance 6=Modified [place] 3=Moderate Assistance 7=Complete IndependenceIRFPAI Quality Coding Scale 6 Independent with activity with or without an assistive device 5 Patient requires set up or clean up by helper. Patient completes activity by themselves 4 Supervision or touching assist (CGA). [place] provide cues , steadying assist 3 The helper provides less than half the effort to complete the activity 2 The helper provides more than half the effort to complete the activity 1 Dependent. The helper does all the effort to complete an activity 7 Patient refused to complete or attempt activity 9 The patient did not perform the activity before the current illness or injury 88 Not attempted due to Medical conditions or safety concerns Other Treatments Pt was provided with blue foam hand branch manager and did return demo on squeezes with each hand to hep mobilize edema. Pt encouraged to keep L wrist in extension when squeezing but he had difficulty doing so. Pt educ on use of movement to help decrease edema. Pt left up in recliner, all needs met. Education OT Patient Education: Purpose of tx/functional activities, Rehab process OT Short Term Goals Short Term Goals Transfers (B,C,W/C) (FIM): 5 OT Director Money Goals Director Money Goals Time Frame: Mar 21, 2017 Eating (FIM): 6 Grooming(FIM): 6 Bathing(FIM): 5 Upper Body Dressing(FIM): 5 Lower Body Dressing(FIM): 5 Toileting(FIM): 6 Toilet/Commode Transfer(FIM): 6 Shower Transfer(FIM): 5 pt will verbalize three techniques for energy conservation Additional Goals: 1-Demonstrate ADL Tasks, 2-Verbalize Understanding, 3- ImproveStrength/Jessica 1=Demonstrate adherence to instructed precautions during ADL tasks. 2=Patient will verbalize/demonstrate understanding of assistive devices/ modifications for ADL. 3=Patient will improve strength/tolerance for activity to enable patient to perform ADL's. OT Education/Plan Problem List/Assessment Assessment: Decreased Activ Tolerance, Decreased UE Strength, Dependent Transfers, Edema, Impaired Self-Care Skills Pt would benefit from skilled OT to increase his independence in basic self care to allow him to safely return to his home and to decrease caregiver burden. Discharge Recommendations Plan/Recommendations: Continue POC Comment Decreased activity tolerance may affect decisions for continued care Treatment Plan/Plan of Care Treatment,Training & Education: Yes Patient would benefit from OT for education, treatment and training to promote independence in ADL's, mobility, safety and/or upper extremity function for ADL' s. Plan of Care: ADL Retraining, Functional Mobility, UE Funct Exercise/Act, OTHER (energy conservation education) Treatment Duration: Mar 21, 2017 Frequency: 5 times per week Estimated Hrs Per Day: .5 hour per day Agreement: Yes Rehab Potential: Fair Time/GCodes Start Time: 14:15 Stop Time: 14:31 Total Time Billed (hr/min): 16 Billed Treatment Time visit, 16 minutes evaluation moderate intensity KEELY TAMAYO OT Mar 12, 2017 14:59
[2017-03-12] MEDS: carBAMazepine 200 MG (TEGretol) TAB PO SCH ×2 (15:12→22:25)
[2017-03-12] MEDS: GABAPENTIN 300 MG (NEURONTIN) CAP PO SCH (22:25)
[2017-03-13] VITALS (14 sets, daily range): BP systolic 123–175; BP diastolic 76–91
[2017-03-13] MEDS: methylPREDNISolone 40 MG/ML (Solu-MEDROL) VIAL IV SCH ×5 (00:12→23:49)
[2017-03-13] MEDS: PIPERACILLIN SODIUM/TAZOBACTAM 4.5 GM in NS (IVPB) 100 ML IV SCH ×4 (00:12→23:49)
[2017-03-13] MEDS: RT-ALBUTEROL/IPRATROPIUM 3 ML (DUONEB) VIAL INH SCH ×6 (01:55→21:39)
[2017-03-13] MEDS: carBAMazepine 200 MG (TEGretol) TAB PO SCH ×4 (02:45→23:50)
[2017-03-13] MEDS: ATORVASTATIN 40 MG (LIPITOR) TABLET PO SCH (02:45)
[2017-03-13 05:01] LABS: BASOPHILS % (AUTO) 0 % (0-10); EOSINOPHILS % (AUTO) 0 % (0-10); LYMPHOCYTES # (AUTO) 0.7 X 10^3 (1.0-4.0); LYMPHOCYTES % (AUTO) 10 % (12-44); MEAN CORPUSCULAR HEMOGLOBIN 30 PG (25-34); MEAN CORPUSCULAR HGB CONC 33 G/DL (32-36); MEAN CORPUSCULAR VOLUME 92 FL (80-99); MEAN PLATELET VOLUME 9.2 FL (7.4-10.4); MONOCYTES # (AUTO) 0.6 X 10^3 (0.0-1.0); MONOCYTES % (AUTO) 8 % (0-12); NEUTROPHILS # (AUTO) 5.6 X 10^3 (1.8-7.8); NEUTROPHILS % (AUTO) 82 % (42-75); PLATELET COUNT 261 10^3/uL (130-400); RED BLOOD COUNT 3.39 10^6/uL (4.35-5.85); RED CELL DISTRIBUTION WIDTH 15.1 % (10.0-14.5); WHITE BLOOD COUNT 6.8 10^3/uL (4.3-11.0)
[2017-03-13 05:32] LABS: ALANINE AMINOTRANSFERASE 6 U/L (0-55); ALBUMIN 2.9 GM/DL (3.2-4.5); ANION GAP 10 MMOL/L (5-14); ASPARTATE AMINO TRANSFERASE 11 U/L (5-34); BILIRUBIN,TOTAL 0.2 MG/DL (0.1-1.0); BLOOD UREA NITROGEN 13 MG/DL (7-18); BUN/CREATININE RATIO 15; CALCIUM 7.8 MG/DL (8.5-10.1); CARBON DIOXIDE 30 MMOL/L (21-32); CHLORIDE 102 MMOL/L (98-107); CREATININE SERUM 0.84 MG/DL (0.60-1.30); GFR ESTIMATED > 60; GLUCOSE 171 MG/DL (70-105); MAGNESIUM 1.7 MG/DL (1.8-2.4); PHOSPHORUS 2.4 MG/DL (2.3-4.7); POTASSIUM 3.7 MMOL/L (3.6-5.0); SODIUM 142 MMOL/L (135-145); TOTAL PROTEIN 4.9 GM/DL (6.4-8.2)
[2017-03-13] MEDS: POTASSIUM CL 10MEQ/50ML IVPB 50 ML IV SCH (05:40)
[2017-03-13] MEDS: KCL 20 MEQ TAB (K-DUR) PO SCH (05:41)
[2017-03-13] MEDS: MAGNESIUM 1 GM/100 ML IVPB 100 ML IV SCH ×3 (05:41→06:59)
--- NOTE | 2017-03-13 06:26 | Pulmonary Progress Note ---
Subjective Time Seen by Provider: 06:29 Subjective/Events-last exam No complications noted. Exam Exam Vital Signs Date Time Temp Pulse Resp B/P (MAP) Pulse Ox O2 Delivery O2 Flow Rate FiO2 03/13/17 06:00 66 25 155/85 (108) 95 High Flow N/C 3.00 03/13/17 05:00 74 40 123/80 (94) 94 High Flow N/C 3.00 03/13/17 04:14 98.6 03/13/17 04:00 71 19 141/84 (103) 93 High Flow N/C 3.00 03/13/17 04:00 97 High Flow N/C 3.00 03/13/17 03:00 73 22 132/76 (94) 91 High Flow N/C 3.00 03/13/17 02:00 71 22 140/77 (98) 100 High Flow N/C 3.00 03/13/17 01:57 96 High Flow N/C 2.00 03/13/17 01:00 70 24 125/77 (93) 95 High Flow N/C 3.00 03/13/17 01:00 70 03/13/17 00:00 97 High Flow N/C 3.00 03/13/17 00:00 74 24 126/76 (93) 94 High Flow N/C 3.00 03/13/17 00:00 98.4 03/12/17 23:00 80 25 123/72 (89) 93 High Flow N/C 3.00 03/12/17 22:00 81 21 119/73 (88) 96 High Flow N/C 3.00 03/12/17 21:51 96 High Flow N/C 2.00 03/12/17 21:00 77 24 121/73 (89) 95 High Flow N/C 3.00 03/12/17 20:11 97.3 High Flow N/C 3.00 03/12/17 20:00 76 22 123/72 (89) 96 Nasal Cannula 2.00 03/12/17 20:00 97 High Flow N/C 3.00 03/12/17 19:00 86 03/12/17 19:00 74 30 130/79 (96) 94 Nasal Cannula 2.00 03/12/17 18:00 76 22 119/66 (83) 99 Nasal Cannula 2.00 03/12/17 17:55 96 High Flow N/C 2.00 03/12/17 17:41 97.8 03/12/17 17:00 75 24 120/69 (86) 96 Nasal Cannula 2.00 03/12/17 17:00 97 High Flow N/C 2.00 03/12/17 16:00 65 21 137/74 (95) 97 Nasal Cannula 2.00 03/12/17 15:28 100 High Flow N/C 2.00 03/12/17 15:00 70 24 111/73 (86) 98 Nasal Cannula 2.00 03/12/17 14:00 75 24 144/85 (104) 98 Nasal Cannula 2.00 03/12/17 13:00 78 03/12/17 13:00 85 18 148/79 (102) 90 Nasal Cannula 2.00 03/12/17 12:00 83 22 126/73 (90) 90 Nasal Cannula 2.00 03/12/17 11:09 97 High Flow N/C 2.00 03/12/17 11:03 97.9 79 20 145/87 (106) 95 Nasal Cannula 2.00 03/12/17 10:39 100 Nasal Cannula 4.00 03/12/17 10:00 66 22 160/86 (110) 88 Nasal Cannula 3.50 03/12/17 09:00 74 23 141/78 (99) 99 Nasal Cannula 3.50 03/12/17 08:35 98 Nasal Cannula 3.50 03/12/17 08:00 72 21 147/82 (103) 96 Mechanical Ventilator 30.00 03/12/17 08:00 97 Mechanical Ventilator 30.00 03/12/17 07:53 97.3 Mechanical Ventilator 30.00 03/12/17 07:00 73 14 133/72 (92) 96 Mechanical Ventilator 30.00 03/12/17 07:00 64 I & O 03/13/17 07:00 Intake Total 3012 ml Output Total 1425 ml Balance 1587 ml General Appearance: No Apparent Distress, Thin HEENT: Normal ENT Inspection Neck: Full Range of Motion, Normal Inspection Respiratory: Lungs Clear, No Accessory Muscle Use, No Respiratory Distress, Decreased Breath Sounds Cardiovascular: No Murmur Capillary Refill: Less Than 3 Seconds Peripheral Pulses: 2+ Radial Pulses (R), 2+ Radial Pulses (L) Gastrointestinal: non tender, soft Extremity: Normal Inspection, No Pedal Edema Neurologic/Psychiatric: Alert, Oriented x3, No Motor/Sensory Deficits, Normal Mood/Affect, hot packer II-XII Norm as Tested Skin: Normal Color, Warm/Dry Results Lab Laboratory Tests 03/12/17 04:29 03/13/17 04:42 Assessment/Plan Assessment/Plan Pneumonia with severe sepsis. -Continue Zosyn -Hep lock IVF -Page culture UTI -Abx Acute on chronic respiratory failure -Will attempt to wean patient -pt will benefit from home vent to mask upon discharge. Severe COPD oxygen dependent with current tobacco use and COPDAE -SVNs -Solumedrol hx of seizures -seizure precautions Pt is doing much better will transfer him to 4th floor. 233 Clinical Quality Measures DVT/VTE Risk/Contraindication: Risk Factor Score Per Nursin RFS Level Per Nursing on Admit: 4+=Very High RANI PACHECO DO Mar 13, 2017 06:26
--- NOTE | 2017-03-13 07:29 | Progress Note (SOAP) ---
Subjective Time Seen by Provider: 07:25 Subjective/Events-last exam PATIENT FEELING BETTER TODAY. pATIENT BREATHING GOOD. pATIENT BE TRANSFERRED TO MEDICAL FLOOR. Chest x-ray of lungs yesterday looked worse. Sepsis. Respiratory failure resolved. Patient states she will not smoke anymore. Patient discarded last 4 packs of cigarettes he had at home Objective Exam Vital Signs Date Time Temp Pulse Resp B/P (MAP) Pulse Ox O2 Delivery O2 Flow Rate FiO2 03/13/17 06:48 95 High Flow N/C 2.00 03/13/17 06:00 66 25 155/85 (108) 95 High Flow N/C 3.00 03/13/17 05:00 74 40 123/80 (94) 94 High Flow N/C 3.00 03/13/17 04:14 98.6 03/13/17 04:00 71 19 141/84 (103) 93 High Flow N/C 3.00 03/13/17 04:00 97 High Flow N/C 3.00 03/13/17 03:00 73 22 132/76 (94) 91 High Flow N/C 3.00 03/13/17 02:00 71 22 140/77 (98) 100 High Flow N/C 3.00 03/13/17 01:57 96 High Flow N/C 2.00 03/13/17 01:00 70 24 125/77 (93) 95 High Flow N/C 3.00 03/13/17 01:00 70 03/13/17 00:00 97 High Flow N/C 3.00 03/13/17 00:00 74 24 126/76 (93) 94 High Flow N/C 3.00 03/13/17 00:00 98.4 03/12/17 23:00 80 25 123/72 (89) 93 High Flow N/C 3.00 03/12/17 22:00 81 21 119/73 (88) 96 High Flow N/C 3.00 03/12/17 21:51 96 High Flow N/C 2.00 03/12/17 21:00 77 24 121/73 (89) 95 High Flow N/C 3.00 03/12/17 20:11 97.3 High Flow N/C 3.00 03/12/17 20:00 76 22 123/72 (89) 96 Nasal Cannula 2.00 03/12/17 20:00 97 High Flow N/C 3.00 03/12/17 19:00 86 03/12/17 19:00 74 30 130/79 (96) 94 Nasal Cannula 2.00 03/12/17 18:00 76 22 119/66 (83) 99 Nasal Cannula 2.00 03/12/17 17:55 96 High Flow N/C 2.00 03/12/17 17:41 97.8 03/12/17 17:00 75 24 120/69 (86) 96 Nasal Cannula 2.00 03/12/17 17:00 97 High Flow N/C 2.00 03/12/17 16:00 65 21 137/74 (95) 97 Nasal Cannula 2.00 03/12/17 15:28 100 High Flow N/C 2.00 03/12/17 15:00 70 24 111/73 (86) 98 Nasal Cannula 2.00 03/12/17 14:00 75 24 144/85 (104) 98 Nasal Cannula 2.00 03/12/17 13:00 78 03/12/17 13:00 85 18 148/79 (102) 90 Nasal Cannula 2.00 03/12/17 12:00 83 22 126/73 (90) 90 Nasal Cannula 2.00 03/12/17 11:09 97 High Flow N/C 2.00 03/12/17 11:03 97.9 79 20 145/87 (106) 95 Nasal Cannula 2.00 03/12/17 10:39 100 Nasal Cannula 4.00 03/12/17 10:00 66 22 160/86 (110) 88 Nasal Cannula 3.50 03/12/17 09:00 74 23 141/78 (99) 99 Nasal Cannula 3.50 03/12/17 08:35 98 Nasal Cannula 3.50 03/12/17 08:00 72 21 147/82 (103) 96 Mechanical Ventilator 30.00 03/12/17 08:00 97 Mechanical Ventilator 30.00 03/12/17 07:53 97.3 Mechanical Ventilator 30.00 I & O 03/13/17 07:00 Intake Total 3012 ml Output Total 1425 ml Balance 1587 ml Capillary Refill : Less Than 3 Seconds General Appearance: No Apparent Distress, Thin HEENT: Normal ENT Inspection Neck: Full Range of Motion, Normal Inspection Respiratory: No Accessory Muscle Use, Decreased Breath Sounds Cardiovascular: Regular Rate, Rhythm, No Murmur Results Lab Laboratory Tests 03/13/17 04:42 Laboratory Tests 03/12/17 07:57: Urine Color YELLOW, Urine Clarity CLEAR, Urine pH 6, Urine Specific [place] 1.020, Urine Protein 1+H, Urine Glucose (UA) NEGATIVE, Urine Ketones 1+H, Urine Nitrite NEGATIVE, Urine Bilirubin NEGATIVE, Urine Urobilinogen NORMAL, Urine Leukocyte Esterase 2+H, Urine RBC (Auto) 2+H, Urine RBC 25-50H, Urine WBC 10-25H , Urine Squamous Epithelial Cells 0-2, Urine Crystals NONE, Urine Bacteria TRACE , Urine Casts NONE, Urine Mucus SMALLH, Urine Culture Indicated YES 03/13/17 04:42: White Blood Count 6.8, Red Blood Count 3.39L, Hemoglobin 10.3L, Hematocrit 31L, Mean Corpuscular Volume 92, Mean Corpuscular Hemoglobin 30, Mean Corpuscular Hemoglobin Concent 33, Red Cell Distribution Width 15.1H, Platelet Count 261, Mean Platelet Volume 9.2, Neutrophils (%) (Auto) 82H, Lymphocytes (%) (Auto) 10L , Monocytes (%) (Auto) 8, Eosinophils (%) (Auto) 0, Basophils (%) (Auto) 0, Neutrophils # (Auto) 5.6, Lymphocytes # (Auto) 0.7L, Monocytes # (Auto) 0.6, Eosinophils # (Auto) 0.0, Basophils # (Auto) 0.0, Sodium Level 142, Potassium Level 3.7, Chloride Level 102, Carbon Dioxide Level 30, Anion Gap 10, Blood Urea Nitrogen 13, Creatinine 0.84, Estimat Glomerular Filtration Rate > 60, BUN/ Creatinine Ratio 15, Glucose Level 171H, Calcium Level 7.8L, Phosphorus Level 2.4, Magnesium Level 1.7L, Total Bilirubin 0.2, Aspartate Amino Transf (AST/SGOT ) 11, Alanine Aminotransferase (ALT/SGPT) 6, Alkaline Phosphatase 88, Total Protein 4.9L, Albumin 2.9L Microbiology 03/09/17 Blood Culture - Preliminary, Resulted No growth 03/10/17 MRSA Screen - Final, Complete MRSA not isolated 03/10/17 Urine Culture - Preliminary, Resulted NO GROWTH Assessment/Plan Assessment/Plan Assess & Plan/Chief Complaint sepsis. Respiratory failure. COPD with acute exacerbation. Short of air. CHF. Patient comfortable this morning. Patient still on vent. Leukocytosis better. . 03/12/17. Sepsis. Respiratory failure. COPD with acute exacerbation. History of tobaccoism. History of seizure. Acute and chronic respiratory failure. UTI. Patient doing better. Patient to be extubated today. . 03/13/17. Sepsis. Respiratory failure. COPD with acute exacerbation. History of tobaccoism. UTI no growth. Patient better we'll transferred to floor today Clinical Quality Measures DVT/VTE Risk/Contraindication: Risk Factor Score Per Nursin RFS Level Per Nursing on Admit: 4+=Very High AMANDEEP GENAO DO Mar 13, 2017 07:29
--- NOTE | 2017-03-13 08:17 | Diagnostic Imaging Report ---
Portable erect AP chest at 435 hours. INDICATION: Respiratory distress. FINDINGS: In the interval since the prior exam of 03/12/2017, the patient has been extubated and NG line has been removed. The central venous catheter on the right seen previously remains unchanged in position. The pneumonia/atelectasis involving the right lung base seen on the prior study is perhaps slightly worse on this exam. There also appears to be a new area of pneumonia/atelectasis in the left lower lobe. However, the left perihilar infiltrate seen previously has essentially resolved. The lung apices are clear. The mediastinum is not widened. The osseous structures are intact. IMPRESSION: 1. There are mixed results. There is greater involvement of both lower lobes by pneumonia/atelectasis but the left perihilar region does seem better aerated. A followup study would be recommended for continued evaluation. 2. The patient has been extubated and the NG line has been removed. Dictated by: Dictated on workstation # [id number]
[2017-03-13] MEDS: GABAPENTIN 600 MG (NEURONTIN) TAB PO SCH ×2 (08:18→16:12)
[2017-03-13] MEDS: PHENYTOIN 100 MG (DILANTIN) CAP PO SCH ×3 (08:18→23:50)
[2017-03-13] MEDS: ENOXAPARIN 40 MG/0.4 ML (LOVENOX) SYR SC SCH (09:10)
[2017-03-13] MEDS: FAMOTIDINE 20 MG (PEPCID) TABLET GT SCH ×2 (09:10→20:15)
--- NOTE | 2017-03-13 11:33 | Physical Therapy Daily Note ---
PT Daily Note-Current Subjective Patient in bed pre tx, agrees reluctantly to participate with PT, has no complaints of pain. He is very concerned about his suction device not working well, nursing comes in to fix it. Appearance Patient BTB post tx with nurse call, phone, tray, all needs met. Mental Status Patient Orientation: Person, Place Attachments: Oxygen, IV 2L of O2 nasal canula Transfers Functional [place] Measure 0=Not Assessed/NA 4=Minimal Assistance 1=Total Assistance 5=Supervision or Setup 2=Maximal Assistance 6=Modified [place] 3=Moderate Assistance 7=Complete IndependenceIRFPAI Quality Coding Scale 6 Independent with activity with or without an assistive device 5 Patient requires set up or clean up by helper. Patient completes activity by themselves 4 Supervision or touching assist (CGA). [place] provide cues , steadying assist 3 The helper provides less than half the effort to complete the activity 2 The helper provides more than half the effort to complete the activity 1 Dependent. 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 Treatments bed mobility and transfers, ambulation, patient also had to go to the bathroom and he was toileted with SBA Assessment Current Status: Fair Progress improved balance and endurance PT Short Term Goals Short Term Goals Time Frame: Mar 19, 2017 Transfers (B,C,W/C) (FIM): 5 Gait (FIM): 2 Gait Distance Comment: 50' Gait Level of Assist: 4 Gait Assistive Device: FWW PT Plan Problem List Problem List: Activity Tolerance, Functional Strength, Safety, Balance, Gait, Transfer, Bed Mobility Treatment/Plan Treatment Plan: Continue Plan of Care Treatment Plan: Bed Mobility, Education, Functional Activity Jessica, Functional Strength, Gait, Safety, Therapeutic Exercise, Transfers Treatment Duration: Mar 19, 2017 Frequency: 6 times per week Estimated Hrs Per Day: .25 hour per day (15-30') Patient and/or Family Agrees t: Yes Safety Risks/Education Patient Education: Gait Training, Transfer Techniques, Correct Positioning, Safety Issues Teaching Recipient: Patient Teaching Methods: Demonstration, Discussion Response to Teaching: Reinforcement Needed Time/GCodes Time In: 1105 Time Out: 1120 Total Billed Treatment Time: 15 Total Billed Treatment 1 visit GT 15' CAROLYN EPPS PT Mar 13, 2017 11:33
--- NOTE | 2017-03-13 15:26 | Occupational Ther Daily Note ---
OT Current Status-Daily Note Subjective Pt. states that he is hoping to go home in a couple of days. Appearance Pt. is up in chair speaking with rehab coordinator when OT enters room. Pt. has decided that he would like to go home instead of rehab. Mental Status/Objective Patient Orientation: Person, Place Functional [place] Measure 0=Not Assessed/NA 4=Minimal Assistance 1=Total Assistance 5=Supervision or Setup 2=Maximal Assistance 6=Modified [place] 3=Moderate Assistance 7=Complete [place] ADL-Treatment Transfers (B, C, W/C) (FIM): 4 (CGA for all transfers. Please see note.) Other Treatment Pt. up in chair. OT explains self to him. Offers to assist pt. with shower or spongebath. Pt. states that his girlfriend will be here soon, and that she will assist him, as she does this at home. OT asks pt. if he has any concerns about returning home, or anything that he would like to practice while in the hospital. Pt. states that he does not. Does state that this was a "wake up call." OT offers to go for walk with him. Pt. agrees. Pt. ambulates a total of 150 feet, with multiple rest breaks. Leans up against wall. Attempts to bring foot up while standing, to show OT a bump on his foot. Becomes wobbly. OT "catches" him and pt. states, "I'm okay, I'm okay." Pt. ambulates back to bed and transfers to bed with SBA. All needs met in room. Respiratory therapist came in room right after OT and sats at 92% on 2L 02. Education OT Patient Education: Correct positioning, Energy conservation, Progress toward Goal/Update tx plan, Purpose of tx/functional activities, Reviewed precautions, Rehab process, Transfer techniques Teaching Recipient: Patient Teaching Methods: Demonstration, Discussion Response to Teaching: Verbalize Understanding, Return Demonstration OT Short Term Goals Short Term Goals Transfers (B,C,W/C) (FIM): 5 1=Demonstrate adherence to instructed precautions during ADL tasks. 2=Patient will verbalize/demonstrate understanding of assistive devices/ modifications for ADL. 3=Patient will improve strength/tolerance for activity to enable patient to perform ADL's. OT Retirement Goals Retirement Goals Time Frame: Mar 21, 2017 Eating (FIM): 6 Grooming(FIM): 6 Bathing(FIM): 5 Upper Body Dressing(FIM): 5 Lower Body Dressing(FIM): 5 Toileting(FIM): 6 Toilet/Commode Transfer(FIM): 6 Shower Transfer(FIM): 5 pt will verbalize three techniques for energy conservation Additional Goals: 1-Demonstrate ADL Tasks, 2-Verbalize Understanding, 3- ImproveStrength/Jessica 1=Demonstrate adherence to instructed precautions during ADL tasks. 2=Patient will verbalize/demonstrate understanding of assistive devices/ modifications for ADL. 3=Patient will improve strength/tolerance for activity to enable patient to perform ADL's. OT Education/Plan Problem List/Assessment Assessment: Decreased Activ Tolerance, Impaired I ADL's, Impaired Self-Care Skills Pt would benefit from skilled OT to increase his independence in basic self care to allow him to safely return to his home and to decrease caregiver burden. Discharge Recommendations Plan/Recommendations: Continue POC Therapy D/C Recommendations: Home w/ Family Support Treatment Plan/Plan of Care Treatment,Training & Education: Yes Patient would benefit from OT for education, treatment and training to promote independence in ADL's, mobility, safety and/or upper extremity function for ADL' s. Plan of Care: ADL Retraining, Functional Mobility, UE Funct Exercise/Act, OTHER (energy conservation education) Treatment Duration: Mar 21, 2017 Frequency: 5 times per week Estimated Hrs Per Day: .5 hour per day Agreement: Yes Rehab Potential: Fair Time/GCodes Start Time: 14:30 Stop Time: 14:50 Total Time Billed (hr/min): 20 Billed Treatment Time 1, FA x 20minutes JANNA RANGEL OT Mar 13, 2017 15:26
[2017-03-13] MEDS: lamoTRIgine 25 MG (LaMICtal) TAB PO SCH ×2 (16:13→23:50)
[2017-03-13] MEDS: GABAPENTIN 300 MG (NEURONTIN) CAP PO SCH (23:49)
[2017-03-14] VITALS: BP 145/63
[2017-03-14] MEDS: RT-ALBUTEROL/IPRATROPIUM 3 ML (DUONEB) VIAL INH SCH ×4 (02:32→13:50)
[2017-03-14] MEDS: carBAMazepine 200 MG (TEGretol) TAB PO SCH ×2 (02:38→09:26)
[2017-03-14] MEDS: ATORVASTATIN 40 MG (LIPITOR) TABLET PO SCH (02:38)
[2017-03-14 04:00] VITALS: BP 150/72
[2017-03-14] MEDS: methylPREDNISolone 40 MG/ML (Solu-MEDROL) VIAL IV SCH (05:35)
[2017-03-14 05:55] LABS: BASOPHILS % (AUTO) 0 % (0-10); EOSINOPHILS % (AUTO) 0 % (0-10); LYMPHOCYTES # (AUTO) 0.9 X 10^3 (1.0-4.0); LYMPHOCYTES % (AUTO) 15 % (12-44); MEAN CORPUSCULAR HEMOGLOBIN 30 PG (25-34); MEAN CORPUSCULAR HGB CONC 33 G/DL (32-36); MEAN CORPUSCULAR VOLUME 92 FL (80-99); MEAN PLATELET VOLUME 8.9 FL (7.4-10.4); MONOCYTES # (AUTO) 0.8 X 10^3 (0.0-1.0); MONOCYTES % (AUTO) 13 % (0-12); NEUTROPHILS # (AUTO) 4.2 X 10^3 (1.8-7.8); NEUTROPHILS % (AUTO) 72 % (42-75); PLATELET COUNT 229 10^3/uL (130-400); RED CELL DISTRIBUTION WIDTH 14.9 % (10.0-14.5); WHITE BLOOD COUNT 5.8 10^3/uL (4.3-11.0)
[2017-03-14 06:21] LABS: ALANINE AMINOTRANSFERASE 8 U/L (0-55); ALBUMIN 2.8 GM/DL (3.2-4.5); ANION GAP 6 MMOL/L (5-14); ASPARTATE AMINO TRANSFERASE 11 U/L (5-34); BILIRUBIN,TOTAL < 0.1 MG/DL (0.1-1.0); BLOOD UREA NITROGEN 10 MG/DL (7-18); BUN/CREATININE RATIO 18; CALCIUM 7.9 MG/DL (8.5-10.1); CARBON DIOXIDE 34 MMOL/L (21-32); CHLORIDE 100 MMOL/L (98-107); CREATININE SERUM 0.55 MG/DL (0.60-1.30); GFR ESTIMATED > 60; GLUCOSE 130 MG/DL (70-105); MAGNESIUM 1.8 MG/DL (1.8-2.4); PHOSPHORUS 2.6 MG/DL (2.3-4.7); POTASSIUM 3.7 MMOL/L (3.6-5.0); SODIUM 140 MMOL/L (135-145); TOTAL PROTEIN 5.3 GM/DL (6.4-8.2)
--- NOTE | 2017-03-14 06:46 | Pulmonary Progress Note ---
Subjective Time Seen by Provider: 06:46 Subjective/Events-last exam No complications noted. Pt is doing better. PT wants to go home. Exam Exam Vital Signs Date Time Temp Pulse Resp B/P (MAP) Pulse Ox O2 Delivery O2 Flow Rate FiO2 03/14/17 04:00 96.0 65 18 150/72 (98) 94 High Flow N/C 2.00 03/14/17 02:32 93 High Flow N/C 2.00 03/14/17 00:00 98.2 70 19 145/63 (90) 93 High Flow N/C 2.00 03/13/17 21:39 96 High Flow N/C 2.00 03/13/17 20:02 97.5 68 20 168/82 (110) 93 High Flow N/C 2.00 03/13/17 19:55 96 High Flow N/C 2.00 03/13/17 18:49 94 High Flow N/C 2.00 03/13/17 16:25 97.0 74 16 156/83 (107) 96 High Flow N/C 2.00 03/13/17 14:48 92 High Flow N/C 2.00 03/13/17 12:00 98.3 62 18 175/82 (113) 95 High Flow N/C 3.00 03/13/17 10:49 95 High Flow N/C 2.00 03/13/17 10:20 99.1 70 20 162/87 (112) 96 High Flow N/C 3.00 03/13/17 09:00 66 29 170/91 (117) 96 High Flow N/C 3.00 03/13/17 08:00 97.0 High Flow N/C 3.00 03/13/17 08:00 64 18 157/84 (108) 95 High Flow N/C 3.00 03/13/17 08:00 High Flow N/C 3.00 03/13/17 07:00 73 17 143/82 (102) 93 High Flow N/C 3.00 03/13/17 07:00 72 03/13/17 06:48 95 High Flow N/C 2.00 I & O 03/14/17 07:00 Intake Total 1250 ml Balance 1250 ml General Appearance: No Apparent Distress, Thin HEENT: Normal ENT Inspection Neck: Full Range of Motion, Normal Inspection Respiratory: No Accessory Muscle Use, Decreased Breath Sounds Cardiovascular: Regular Rate, Rhythm, No Murmur Capillary Refill: Less Than 3 Seconds Peripheral Pulses: 2+ Radial Pulses (R), 2+ Radial Pulses (L) Gastrointestinal: non tender, soft Extremity: Normal Inspection, No Pedal Edema Neurologic/Psychiatric: Alert, Oriented x3, No Motor/Sensory Deficits, Normal Mood/Affect, manager of quality II-XII Norm as Tested Skin: Normal Color, Warm/Dry Results Lab Laboratory Tests 03/13/17 04:42 03/14/17 05:40 Assessment/Plan Assessment/Plan Pneumonia with severe sepsis. - Zosyn -- change to PO Augmentin UTI -Abx Acute on chronic respiratory failure -- much improved -post mechanical ventilation Severe COPD oxygen dependent with current tobacco use and COPDAE -SVNs -Solumedrol -- change to prednisone taper hx of seizures -seizure precautions 232 Clinical Quality Measures DVT/VTE Risk/Contraindication: Risk Factor Score Per Nursin RFS Level Per Nursing on Admit: 4+=Very High RANI PACHECO DO Mar 14, 2017 06:46
[2017-03-14] MEDS ORDERED: PRD10T PO (07:29)
--- NOTE | 2017-03-14 07:40 | Progress Note (SOAP) ---
Subjective Time Seen by Provider: 07:35 Subjective/Events-last exam feeling better today and wants to go home Patient seen by pulmonology and okay to be discharged today. Sepsis. Respiratory failure. COPD with acute exacerbation. tobaccol usage. Patient states he will not smoke anymore Objective Exam Vital Signs Date Time Temp Pulse Resp B/P (MAP) Pulse Ox O2 Delivery O2 Flow Rate FiO2 03/14/17 04:00 96.0 65 18 150/72 (98) 94 High Flow N/C 2.00 03/14/17 02:32 93 High Flow N/C 2.00 03/14/17 00:00 98.2 70 19 145/63 (90) 93 High Flow N/C 2.00 03/13/17 21:39 96 High Flow N/C 2.00 03/13/17 20:02 97.5 68 20 168/82 (110) 93 High Flow N/C 2.00 03/13/17 19:55 96 High Flow N/C 2.00 03/13/17 18:49 94 High Flow N/C 2.00 03/13/17 16:25 97.0 74 16 156/83 (107) 96 High Flow N/C 2.00 03/13/17 14:48 92 High Flow N/C 2.00 03/13/17 12:00 98.3 62 18 175/82 (113) 95 High Flow N/C 3.00 03/13/17 10:49 95 High Flow N/C 2.00 03/13/17 10:20 99.1 70 20 162/87 (112) 96 High Flow N/C 3.00 03/13/17 09:00 66 29 170/91 (117) 96 High Flow N/C 3.00 03/13/17 08:00 97.0 High Flow N/C 3.00 03/13/17 08:00 64 18 157/84 (108) 95 High Flow N/C 3.00 03/13/17 08:00 High Flow N/C 3.00 I & O 03/14/17 07:00 Intake Total 2050 ml Balance 2050 ml Capillary Refill : Less Than 3 Seconds General Appearance: No Apparent Distress, Thin HEENT: Normal ENT Inspection Neck: Full Range of Motion, Normal Inspection Respiratory: Lungs Clear, No Accessory Muscle Use, No Respiratory Distress, Decreased Breath Sounds Cardiovascular: Regular Rate, Rhythm, No Murmur Gastrointestinal: non tender, soft Results Lab Laboratory Tests 03/14/17 05:40 Laboratory Tests 03/14/17 05:40: White Blood Count 5.8, Red Blood Count 3.10L, Hemoglobin 9.4L, Hematocrit 29L, Mean Corpuscular Volume 92, Mean Corpuscular Hemoglobin 30, Mean Corpuscular Hemoglobin Concent 33, Red Cell Distribution Width 14.9H, Platelet Count 229, Mean Platelet Volume 8.9, Neutrophils (%) (Auto) 72, Lymphocytes (%) (Auto) 15, Monocytes (%) (Auto) 13H, Eosinophils (%) (Auto) 0, Basophils (%) (Auto) 0, Neutrophils # (Auto) 4.2, Lymphocytes # (Auto) 0.9L, Monocytes # (Auto) 0.8, Eosinophils # (Auto) 0.0, Basophils # (Auto) 0.0, Sodium Level 140, Potassium Level 3.7, Chloride Level 100, Carbon Dioxide Level 34H, Anion Gap 6, Blood Urea Nitrogen 10, Creatinine 0.55L, Estimat Glomerular Filtration Rate > 60, BUN /Creatinine Ratio 18, Glucose Level 130H, Calcium Level 7.9L, Phosphorus Level 2.6, Magnesium Level 1.8, Total Bilirubin < 0.1L, Aspartate Amino Transf (AST/ SGOT) 11, Alanine Aminotransferase (ALT/SGPT) 8, Alkaline Phosphatase 79, Total Protein 5.3L, Albumin 2.8L Microbiology 03/09/17 Blood Culture - Preliminary, Resulted No growth 03/10/17 MRSA Screen - Final, Complete MRSA not isolated 03/12/17 Urine Culture - Preliminary, Resulted NO GROWTH Assessment/Plan Assessment/Plan Assess & Plan/Chief Complaint sepsis. Respiratory failure. COPD with acute exacerbation. Short of air. CHF. Patient comfortable this morning. Patient still on vent. Leukocytosis better. . 03/12/17. Sepsis. Respiratory failure. COPD with acute exacerbation. History of tobaccoism. History of seizure. Acute and chronic respiratory failure. UTI. Patient doing better. Patient to be extubated today. . 03/13/17. Sepsis. Respiratory failure. COPD with acute exacerbation. History of tobaccoism. UTI no growth. Patient better we'll transferred to floor today . 03/14/17. Sepsis. Respiratory failure area COPD with acute exacerbation. History of tobaccoism. patient states he's not be smoking. anymore Clinical Quality Measures DVT/VTE Risk/Contraindication: Risk Factor Score Per Nursin RFS Level Per Nursing on Admit: 4+=Very High AMANDEEP GENAO DO Mar 14, 2017 07:40
[2017-03-14] MEDS ORDERED: AMOX1TAB12 PO (07:43)
--- NOTE | 2017-03-14 07:48 | Discharge Inst-Simple/Standard ---
Discharge Inst-Standard Patient Instructions/Follow Up Plan of Care/Instructions/FU: 2 office next Friday. Make appointment with Dr. Bernal To take prednisone and Augmentin. No smoking. Use nasal oxygen Activity as Tolerated: Yes Discharge Diet: No Restrictions Planned Outpatient Orders/Ref. Pneu Vac Indicated: Yes AMANDEEP GENAO DO Mar 14, 2017 07:48
[2017-03-14 08:00] VITALS: BP 197/63
--- NOTE | 2017-03-14 08:28 | Diagnostic Imaging Report ---
EXAMINATION: Portable upright radiograph of the chest. INDICATION: Sepsis. FINDINGS: The lungs are hyperinflated. There is a right IJ venous line with the tip at the SVC level. There is patchy mild right perihilar and basilar infiltrates slightly improved compared to the previous exam. The heart size is normal. No effusion or pneumothorax The mediastinum and ryan appear unremarkable. IMPRESSION: Improving right perihilar and bibasilar infiltrates. Dictated by: Dictated on workstation # [id number]
[2017-03-14] MEDS ORDERED: lisINopril 10 MG (PRINIVIL) TAB PO SCH (09:00)
[2017-03-14] MEDS: FAMOTIDINE 20 MG (PEPCID) TABLET GT SCH (09:25)
[2017-03-14] MEDS: PHENYTOIN 100 MG (DILANTIN) CAP PO SCH (09:25)
[2017-03-14] MEDS: GABAPENTIN 600 MG (NEURONTIN) TAB PO SCH (09:25)
[2017-03-14] MEDS: ENOXAPARIN 40 MG/0.4 ML (LOVENOX) SYR SC SCH (09:26)
--- NOTE | 2017-03-14 09:27 | Physical Therapy Daily Note ---
PT Daily Note-Current Subjective Patient reports he is glad he is going home today. Pain Numeric Pain Scale: 0-No Pain Location: No Pain Reported Mental Status Patient Orientation: Normal For Age Attachments: Oxygen Transfers Functional [place] Measure 0=Not Assessed/NA 4=Minimal Assistance 1=Total Assistance 5=Supervision or Setup 2=Maximal Assistance 6=Modified [place] 3=Moderate Assistance 7=Complete IndependenceIRFPAI Quality Coding Scale 6 Independent with activity with or without an assistive device 5 Patient requires set up or clean up by helper. Patient completes activity by themselves 4 Supervision or touching assist (CGA). [place] provide cues , steadying assist 3 The helper provides less than half the effort to complete the activity 2 The helper provides more than half the effort to complete the activity 1 Dependent. The helper does all the effort to complete an activity 7 Patient refused to complete or attempt activity 9 The patient did not perform the activity before the current illness or injury 88 Not attempted due to Medical conditions or safety concerns Transfers (B, C, W/C) (FIM): 7 Scootin Rollin Supine to/from Sit: 7 Sit to/from Stand: 7 Weight Bearing Right Lower Extremity: Right Full Weight Bearing Left Lower Extremity: Left Full Weight Bearing Gait Training Gait (FIM): 7 Distance (FIM): 3=150 ft Distance: 150' x 2 Gait Level of Assist: 7 Gait Assistive Device: None to improve pulmonary function/safe and functional gait sequence Assessment Current Status: Excellent Progress Patient is currently at independent PLOF with all gross motor skills safely. Patient to dismiss to home on this date. PT Short Term Goals Short Term Goals Time Frame: Mar 19, 2017 Transfers (B,C,W/C) (FIM): 5 Gait (FIM): 2 Gait Distance Comment: 50' Gait Level of Assist: 4 Gait Assistive Device: FWW PT Plan Treatment/Plan Treatment Plan: Discontinue PT, goals met Treatment Plan: Bed Mobility, Education, Functional Activity Jessica, Functional Strength, Gait, Safety, Therapeutic Exercise, Transfers Treatment Duration: Mar 19, 2017 Frequency: 6 times per week Estimated Hrs Per Day: .25 hour per day (15-30') Patient and/or Family Agrees t: Yes Discharge Recommendations Therapy D/C Recommendations: Home w/ Family Support Time/GCodes Time In: 905 Time Out: 918 Total Billed Treatment Time: 13 Total Billed Treatment 1 visit FA 13 min G Codes Necessary: LAVON Gonzalez PT Mar 14, 2017 09:26
[2017-03-14] MEDS ORDERED: LISI10TA2 PO (11:14)
[2017-03-14 12:00] VITALS: BP 188/88
[2017-03-14] MEDS ORDERED: predniSONE 10 MG TAB PO SCH (12:00)
[2017-03-14 15:34] VITALS: BP 188/88
[2017-03-14] MEDS ORDERED: AUGMENTIN 875 MG TAB (AMOXICILLIN/CLAVULANATE) PO SCH (17:00)
[2017-03-14] MEDS ORDERED: methylPREDNISolone 40 MG/ML (Solu-MEDROL) VIAL IV SCH (18:00)
== END 2017-03-14 14:50 | disposition home or self-care (01) | DRG 871 ==
LOC: EDUNIT# 15:59 → ER 16:00 → ICU 18:31 → 4TH 03-13 09:47
PROVIDERS: ADMIT Internal Medicine; ATTEND Family Medicine
PROC: 5A1945Z Respiratory Ventilation, 24-96 Consecutive Hours (ICD-10-PCS; principal; 2017-03-09)
DX: A41.9 Sepsis, unspecified organism (principal); J18.9 Pneumonia, unspecified organism; J96.20 Acute and chronic respiratory failure, unspecified whether with hypoxia or hypercapnia; J44.1 Chronic obstructive pulmonary disease with (acute) exacerbation; N39.0 Urinary tract infection, site not specified; F17.210 Nicotine dependence, cigarettes, uncomplicated; G40.909 Epilepsy, unspecified, not intractable, without status epilepticus; E83.42 Hypomagnesemia; I50.9 Heart failure, unspecified; Z99.81 Dependence on supplemental oxygen
CPT/HCPCS: 31500; 36415; 71010; 80053; 80202; 81000; 82805; 82962; 83605; 83735; 83880; 84100; 85007; 85025; 85027; 86141; 87040; 87081; 87088; 94002; 94003; 94640; 94760; 94799; 96361; 96365; 96367; 96375

== ENCOUNTER 2017-03-30 04:49 | Inpatient (IN) | payer MEDICAID ==
[~2017-03-30] VITALS: Ht 188 cm; Wt 74.7 kg
[2017-03-30] VITALS (12 sets, daily range): BP systolic 127–182; BP diastolic 62–93
[~2017-03-30 04:49] MED LIST changes: +ALBU18HF2 INH; +AMOX1TAB12 PO; +LISI10TA2 PO
--- OUTSIDE RECORDS SUMMARY | 2017-03-30 04:55 | XMS REPORT | Clinical Summary ---
Author Author [facility] Organization [facility] Address Unknown Phone Unavailable Care Team Providers Care Manager Infrastructure Name Role Phone PCP Unavailable Source Comments Some departments are not documenting in the electronic medical record. If you do not see the information that you expected, contact Release of Information in the Health Information Management department at [phone] for further assistance in locating additional records.[facility] Allergies Active Allergy Reactions Severity Noted [...] Date Seizures (HCC) 10/22/2013 Hemiparesis ([facility]) 10/22/2013 Asthma 10/22/2013 COPD (chronic obstructive pulmonary disease) ([facility]) 10/22/2013 Hyperlipidemia 10/22/2013 Weight loss 10/22/2013 [...]
--- OUTSIDE RECORDS SUMMARY | 2017-03-30 05:00 | XMS REPORT | Continuity of Care Document ---
Author Author [facility] Address Unknown Phone Unavailable Allergies Active Description Code Type Severity Reaction Onset Reported/Identified Relationship to Patient Clinical Status Yes AMOXILLEN AMOXILLEN Mild N/A 07/17/2008 Yes Penicillins [id number] Drug Allergy Mild N/A 08/02/2008 Yes aspirin Drug Allergy N/A N/A 12/10/2013 Yes aspirin [id number] Drug Allergy Mild DOES NOT WORK W 08/10/2015 Yes ibuprofen [id number] Drug Allergy Mild N/A 08/10/2015 Medications There is no data. Problems Date Dx Coded Attending Type Code Diagnosis Diagnosed By 12/02/2009 Ot 380.4 IMPACTED CERUMEN 12/02/2009 Ot 388.30 TINNITUS NOS 06/26/2010 Ot 272.4 HYPERLIPIDEMIA NEC/NOS 06/26/2010 Ot 276.1 HYPOSMOLALITY 06/26/2010 Ot 276.8 HYPOPOTASSEMIA 06/26/2010 Ot 345.90 EPILEPSY UNSPEC W/O MENTION INTRACTABLE 06/26/2010 Ot 493.90 ASTHMA, UNSPECIFIED 06/26/2010 Ot 574.10 CHOLELITH W CHOLECYS NEC 06/26/2010 Ot V58.69 OTH MED,LT, CURRENT USE 05/18/2011 Ot 491.22 OBSTRUCTIVE CHRONIC BRONCHITIS WITH ACUT 05/18/2011 Ot 786.2 COUGH 07/24/2011 Ot 345.90 EPILEPSY UNSPEC W/O MENTION INTRACTABLE 07/24/2011 Ot 719.7 DIFFICULTY IN WALKING 07/24/2011 Ot 780.4 DIZZINESS AND GIDDINESS 07/24/2011 Ot 784.59 OTHER SPEECH DISTURBANCE 07/24/2011 Ot E936.1 ADV EFF HYDANTOIN DERIV 07/24/2011 Ot V58.69 OTH MED,LT, CURRENT USE 08/19/2012 491.21 CHRONIC BRONCHITIS - WITH ACUTE EXACERBATION 08/19/2012 DIPESH MIKE APRN 491.21 CHRONIC BRONCHITIS - WITH ACUTE EXACERBATION 12/23/2012 NOREEN CHÁVEZ SENIOR STORAGE 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 Ot 807.01 FRACTURE ONE RIB-CLOSED 12/23/2012 NOREEN CHÁVEZ SENIOR STORAGE 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 Ot 959.11 OTH INJURY OF CHEST WALL 12/23/2012 NOREEN CHÁVEZ SENIOR STORAGE 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 Ot E000.8 OTHER EXTERNAL CAUSE STATUS 12/23/2012 NOREEN CHÁVEZ SENIOR STORAGE 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 Ot E888.9 FALL NOS 02/16/2013 NOREEN CHÁVEZ SENIOR STORAGE 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 Ot 824.8 FX ANKLE NOS-CLOSED 02/16/2013 NOREEN CHÁVEZ SENIOR STORAGE 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 Ot 959.7 LOWER LEG INJURY NOS 02/16/2013 NOREEN CHÁVEZ SENIOR STORAGE 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 Ot E000.0 CIVILIAN ACTIVITY DONE FOR INCOME OR PAY 02/16/2013 NOREEN CHÁVEZ APRN Ot E888.9 FALL NOS 09/17/2013 CELESTE BILLY DO Ot 780.39 OTHER CONVULSIONS 09/17/2013 CELESTE BILLY DO Ot 845.10 SPRAIN OF FOOT NOS 09/17/2013 CELESTE BILLY DO Ot 910.0 ABRASION HEAD 09/17/2013 CELESTE BILLY DO Ot 920 CONTUSION FACE/SCALP/NCK 09/17/2013 CELESTE BILLY DO Ot E029.9 OTHER ACTIVITY 09/17/2013 CELESTE BILLY DO Ot E917.4 STAT OB W/O SUB FALL NEC 09/17/2013 CELESTE BILLY DO Ot E927.0 OVEREXERTION FROM SUDDEN STRENUOUS MOVEM 09/17/2013 CELESTE BILLY DO Ot V06.1 [id number], COMBINED [ 11/02/2013 VANESSA GUTHRIE MD Ot 873.0 OPEN WOUND OF SCALP 11/02/2013 VANESSA GUTHRIE MD Ot 959.01 HEAD INJURY, NOS 11/02/2013 VANESSA GUTHRIE MD Ot E885.9 FALL FROM SLIPPING, TRIPPING, OR STUMBLI 11/08/2013 VANESSA GUTHRIE MD Ot V58.32 ENCOUNTER FOR REMOVAL OF SUTURES 12/10/2013 DIPESH MIKE APRN 305.1 TOBACCO ABUSE 04/26/2014 Ot 272.4 04/26/2014 Ot 496 04/26/2014 Ot 780.39 04/26/2014 Ot 780.39 04/26/2014 Ot 272.4 04/26/2014 Ot 780.39 04/26/2014 Ot 496 04/26/2014 Ot 786.2 04/26/2014 Ot 780.39 04/26/2014 Ot 780.39 04/26/2014 GELLENDER DO, AMANDEEP Pineda Ot 490 04/26/2014 GELLENDER DO, AMANDEEP Pineda Ot 496 04/26/2014 GELLENDER DO, AMANDEEP Pineda Ot 783.21 04/26/2014 GELLENDER DO, AMANDEEP Pineda Ot 496 04/26/2014 GELLENDER DO, AMANDEEP Pineda Ot 786.2 04/26/2014 GELLENDER DO, AMANDEEP Pineda Ot 783.21 04/26/2014 GELLENDER DO, AMANDEEP Pineda Ot 789.00 04/26/2014 GELLENDER DO, AMANDEEP Pineda Ot 783.21 04/26/2014 GELLENDER DO, AMANDEEP Pineda Ot 789.00 04/26/2014 GELLENDER DO, AMANDEEP Pineda Ot 272.4 04/26/2014 GELLENDER DO, AMANDEEP Pineda Ot 496 04/26/2014 GELLENDER DO, AMANDEEP Pineda Ot 780.39 04/26/2014 GELLENDER DO, AMANDEEP Pineda Ot 729.81 04/26/2014 GELLENDER DO, AMANDEEP Pineda Ot 780.79 04/26/2014 GABRIELLE RIOS, YELITZA Marie Ot 780.39 04/26/2014 GELLENDER DO, AMANDEEP Pineda Ot 825.25 04/26/2014 GELLENDER DO, AMANDEEP Pineda Ot E928.9 04/26/2014 GELLENDER DO, AMANDEEP Pineda Ot 780.39 04/26/2014 GELLENDER DO, AMNADEEP Pineda Ot 721.0 05/02/2014 Ot 272.4 05/02/2014 Ot 496 05/02/2014 Ot 780.39 05/02/2014 Ot 780.39 05/02/2014 Ot 272.4 05/02/2014 Ot 780.39 05/02/2014 Ot 496 05/02/2014 Ot 786.2 05/02/2014 Ot 780.39 05/02/2014 Ot 780.39 05/02/2014 GELLENDER DO, AMANDEEP Pineda Ot 490 05/02/2014 GELLENDER DO, AMANDEEP Pineda Ot 496 05/02/2014 GELLENDER DO, AMANDEEP Pineda Ot 783.21 05/02/2014 GELLENDER DO, AMANDEEP Pineda Ot 496 05/02/2014 GELLENDER DO, AMANDEEP Pineda Ot 786.2 05/02/2014 GELLENDER DO, AMANDEEP A Ot 783.21 05/02/2014 GELLENDER DO, AMANDEEP A Ot 789.00 05/02/2014 GELLENDER DO, AMANDEEP Pineda Ot 783.21 05/02/2014 GELLENDER DO, AMANDEEP Pineda Ot 789.00 05/02/2014 GELLENDER DO, AMANDEEP Pineda Ot 272.4 05/02/2014 GELLENDER DO, AMANDEEP Pineda Ot 496 05/02/2014 GELLENDER DO, AMANDEEP Pineda Ot 780.39 05/02/2014 GELLENDER DO, AMANDEEP Pineda Ot 729.81 05/02/2014 GELLENDER DO, AMANDEEP Pineda Ot 780.79 05/02/2014 YELITZA ANTHONY MD Ot 780.39 05/02/2014 GELLENDER DO, AMANDEEP Pineda Ot 825.25 05/02/2014 GELLENDER DO, AMANDEEP Pineda Ot E928.9 05/02/2014 GELLENDER DO, AMANDEEP Pineda Ot 780.39 05/02/2014 GELLENDER DO, AMANDEEP Pineda Ot 721.0 05/02/2014 GELLENDER DO, AMANDEEP Pineda Ot 496 05/02/2014 GELLENDER DO, AMANDEEP Pineda Ot 780.39 05/16/2014 Ot 272.4 05/16/2014 Ot 496 05/16/2014 Ot 780.39 05/16/2014 Ot 780.39 05/16/2014 Ot 272.4 05/16/2014 Ot 780.39 05/16/2014 Ot 496 05/16/2014 Ot 786.2 05/16/2014 Ot 780.39 05/16/2014 Ot 780.39 05/16/2014 GELLENDER DO, AMANDEEP Pineda Ot 490 05/16/2014 GELLENDER DO, AMANDEEP A Ot 496 05/16/2014 GELLENDER DO, AMANDEEP A Ot 783.21 05/16/2014 GELLENDER DO, AMANDEEP A Ot 496 05/16/2014 GELLENDER DO, AMANDEEP Pineda Ot 786.2 05/16/2014 GELLENDER DO, AMANDEEP Pineda Ot 783.21 05/16/2014 GELLENDER DO, AMANDEEP Pineda Ot 789.00 05/16/2014 GELLENDER DO, AMANDEEP Pineda Ot 783.21 05/16/2014 GELLENDER DO, AMANDEEP Pineda Ot 789.00 05/16/2014 GELLENDER DO, AMANDEEP Pineda Ot 272.4 05/16/2014 GELLENDER DO, AMANDEEP Pineda Ot 496 05/16/2014 GELLENDER DO, AMANDEEP Pineda Ot 780.39 05/16/2014 GELLENDER DO, AMANDEEP Pineda Ot 729.81 05/16/2014 GELLENDER DO, AMANDEEP Pineda Ot 780.79 05/16/2014 YELITZA ANTHONY MD Ot 780.39 05/16/2014 GELLENDER DO, AMANDEEP Pineda Ot 825.25 05/16/2014 GELLENDER DO, AMANDEEP Pineda Ot E928.9 05/16/2014 GELLENDER DO, AMANDEEP Pineda Ot 780.39 05/16/2014 GELLENDER DO, AMANDEEP Pineda Ot 721.0 05/16/2014 GELLENDER DO, AMANDEEP Pineda Ot 496 05/16/2014 GELLENDER DO, AMANDEEP Pineda Ot 780.39 05/16/2014 Ot 272.4 05/16/2014 Ot 496 05/16/2014 Ot 780.39 05/16/2014 Ot 780.39 05/16/2014 Ot 272.4 05/16/2014 Ot 780.39 05/16/2014 Ot 496 05/16/2014 Ot 786.2 05/16/2014 GELLENDER DO, AMANDEEP Pineda Ot 721.0 05/16/2014 GELLENDER DO, AMANDEEP Pineda Ot 496 05/16/2014 GELLENDER DO, AMANDEEP Pineda Ot 780.39 05/25/2014 Ot 272.4 05/25/2014 Ot 496 05/25/2014 Ot 780.39 05/25/2014 Ot 780.39 05/25/2014 Ot 272.4 05/25/2014 Ot 780.39 05/25/2014 Ot 496 05/25/2014 Ot 786.2 05/25/2014 Ot 780.39 05/25/2014 Ot 780.39 05/25/2014 GELLENDER DO, AMANDEEP Pineda Ot 490 05/25/2014 GELLENDER DO, AMANDEEP Pineda Ot 496 05/25/2014 GELLENDER DO, AMANDEEP Pineda Ot 783.21 05/25/2014 GELLENDER DO, AMANDEEP Pineda Ot 496 05/25/2014 GELLENDER DO, AMANDEEP Pineda Ot 786.2 05/25/2014 GELLENDER DO, AMANDEEP Pineda Ot 783.21 05/25/2014 GELLENDER DO, AMANDEEP Pineda Ot 789.00 05/25/2014 GELLENDER DO, AMANDEEP Pineda Ot 783.21 05/25/2014 GELLENDER DO, AMANDEEP Pineda Ot 789.00 05/25/2014 GELLENDER DO, AMANDEEP Pineda Ot 272.4 05/25/2014 GELLENDER DO, AMANDEEP Pineda Ot 496 05/25/2014 GELLENDER DO, AMANDEEP Pineda Ot 780.39 05/25/2014 GELLENDER DO, AMANDEEP Pineda Ot 729.81 05/25/2014 GELLENDER DO, AMANDEEP Pineda Ot 780.79 05/25/2014 GABRIELLE RIOS, YELITZA Marie Ot 780.39 05/25/2014 GELLENDER DO, AMANDEEP Pineda Ot 825.25 05/25/2014 GELLENDER DO, AMANDEEP Pineda Ot E928.9 05/25/2014 GELLENDER DO, AMANDEEP Pineda Ot 780.39 05/25/2014 GELLENDER DO, AMANDEEP Pineda Ot 721.0 05/25/2014 GELLENDER DO, AMANDEEP Pineda Ot 496 05/25/2014 GELLENDER DO, AMANDEEP Pineda Ot 780.39 05/25/2014 GELLENDER DO, AMANDEEP Pineda Ot 721.0 08/26/2014 Ot 272.4 08/26/2014 Ot 496 08/26/2014 Ot 780.39 08/26/2014 Ot 780.39 08/26/2014 Ot 272.4 08/26/2014 Ot 780.39 08/26/2014 Ot 496 08/26/2014 Ot 786.2 08/26/2014 Ot 780.39 08/26/2014 Ot 780.39 08/26/2014 GELLENDER DO, AMANDEEP Pineda Ot 490 08/26/2014 GELLENDER DO, AMANDEEP Pineda Ot 496 08/26/2014 GELLENDER DO, AMANDEEP Pineda Ot 783.21 08/26/2014 GELLENDER DO, AMANDEEP Pineda Ot 496 08/26/2014 GELLENDER DO, AMANDEEP Pineda Ot 786.2 08/26/2014 GELLENDER DO, AMANDEEP Pineda Ot 783.21 08/26/2014 GELLENDER DO, AMANDEEP Pineda Ot 789.00 08/26/2014 GELLENDER DO, AMNADEEP Pineda Ot 783.21 08/26/2014 GELLENDER DO, AMANDEEP Pineda Ot 789.00 08/26/2014 GELLENDER DO, AMANDEEP Pineda Ot 272.4 08/26/2014 GELLENDER DO, AMANDEEP Pineda Ot 496 08/26/2014 GELLENDER DO, AMANDEEP Pineda Ot 780.39 08/26/2014 GELLENDER DO, AMANDEEP Pineda Ot 729.81 08/26/2014 GELLENDER DO, AMANDEEP Pineda Ot 780.79 08/26/2014 YELITZA ANTHONY MD Ot 780.39 08/26/2014 GELLENDER DO, AMANDEEP Pineda Ot 825.25 08/26/2014 GELLENDER DO, AMANDEEP Pineda Ot E928.9 08/26/2014 GELLENDER DO, AMANDEEP Pineda Ot 780.39 08/26/2014 GELLENDER DO, AMANDEEP Pineda Ot 721.0 08/26/2014 GELLENDER DO, AMANDEEP Pineda Ot 496 08/26/2014 GELLENDER DO, AMANDEEP Pineda Ot 780.39 08/26/2014 KARIS BONILLA Ot 466.0 ACUTE BRONCHITIS 08/26/2014 KARIS BONILLA Ot 491.21 OBSTR CHRONIC BRONCHITIS, W (ACUTE) EXAC 08/26/2014 KARIS BONILLA Ot 786.05 SHORTNESS OF BREATH 08/26/2014 Ot 272.4 08/26/2014 Ot 496 08/26/2014 Ot 780.39 08/26/2014 Ot 780.39 08/26/2014 Ot 272.4 08/26/2014 Ot 780.39 08/26/2014 Ot 496 08/26/2014 Ot 786.2 08/26/2014 Ot 780.39 08/26/2014 Ot 780.39 08/26/2014 GELLENDER DO, AMANDEEP Pineda Ot 490 08/26/2014 GELLENDER DO, AMANDEEP Pindea Ot 496 08/26/2014 GELLENDER DO, AMANDEEP Pineda Ot 783.21 08/26/2014 GELLENDER DO, AMANDEEP Pineda Ot 496 08/26/2014 GELLENDER DO, AMANDEEP Pineda Ot 786.2 08/26/2014 GELLENDER DO, AMANDEEP Pineda Ot 783.21 08/26/2014 GELLENDER DO, AMANDEEP Pineda Ot 789.00 08/26/2014 GELLENDER DO, AMANDEEP Pineda Ot 783.21 08/26/2014 GELLENDER DO, AMANDEEP Pineda Ot 789.00 08/26/2014 GELLENDER DO, AMANDEEP Pineda Ot 272.4 08/26/2014 GELLENDER DO, AMANDEEP Pineda Ot 496 08/26/2014 GELLENDER DO, AMANDEEP Pinead Ot 780.39 08/26/2014 GELLENDER DO, AMANDEEP Pineda Ot 729.81 08/26/2014 GELLENDER DO, AMANDEEP Pineda Ot 780.79 08/26/2014 GABRIELLE RIOS, YELITZA Marie Ot 780.39 08/26/2014 GELLENDER DO, AMANDEEP Pineda Ot 825.25 08/26/2014 GELLENDER DO, AMANDEEP Pineda Ot E928.9 08/26/2014 GELLENDER DO, AMANDEEP Pineda Ot 780.39 08/26/2014 GELLENDER DO, AMANDEEP Pineda Ot 721.0 08/26/2014 GELLENDER DO, AMANDEEP Pineda Ot 496 08/26/2014 GELLENDER DO, AMANDEEP Pineda Ot 780.39 11/10/2014 Ot 272.4 11/10/2014 Ot 496 11/10/2014 Ot 780.39 11/10/2014 Ot 780.39 11/10/2014 Ot 272.4 11/10/2014 Ot 780.39 11/10/2014 Ot 496 11/10/2014 Ot 786.2 11/10/2014 Ot 780.39 11/10/2014 Ot 780.39 11/10/2014 GELLENDER DO, AMANDEEP Pineda Ot 490 11/10/2014 GELLENDER DO, AMANDEEP Pineda Ot 496 11/10/2014 GELLENDER DO, AMANDEEP Pineda Ot 783.21 11/10/2014 GELLENDER DO, AMANDEEP Pineda Ot 496 11/10/2014 GELLENDER DO, AMANDEEP Pineda Ot 786.2 11/10/2014 GELLENDER DO, AMANDEEP Pineda Ot 783.21 11/10/2014 GELLENDER DO, AMANDEEP Pineda Ot 789.00 11/10/2014 GELLENDER DO, AMANDEEP Pineda Ot 783.21 11/10/2014 GELLENDER DO, AMANDEEP Pineda Ot 789.00 11/10/2014 GELLENDER DO, AMANDEEP Pineda Ot 272.4 11/10/2014 GELLENDER DO, AMANDEEP Pineda Ot 496 11/10/2014 GELLENDER DO, AMANDEEP Pineda Ot 780.39 11/10/2014 GELLENDER DO, AMANDEEP Pineda Ot 729.81 11/10/2014 GELLENDER DO, AMANDEEP Pineda Ot 780.79 11/10/2014 GABRIELLE RIOS, YELITZA Marie Ot 780.39 11/10/2014 GELLENDER DO, AMANDEEP Pineda Ot 825.25 11/10/2014 GELLENDER DO, AMANDEEP Pineda Ot E928.9 11/10/2014 GELLENDER DO, AMANDEEP Pineda Ot 780.39 11/10/2014 GELLENDER DO, AMANDEEP Pineda Ot 721.0 11/10/2014 GELLENDER DO, AMANDEEP Pineda Ot 496 11/10/2014 GELLENDER DO, AMANDEEP Pineda Ot 780.39 11/10/2014 GELLENDER DO, AMANDEEP Pineda Ot 780.39 11/15/2014 GELLENDER DO, AMANDEEP Pineda Ot 780.39 12/13/2014 GELLENDER DO, AMANDEEP Pineda Ot 780.39 12/26/2014 GELLENDER DO, AMANDEEP Pineda Ot 780.39 03/11/2015 Ot 272.4 03/11/2015 Ot 496 03/11/2015 Ot 780.39 03/11/2015 Ot 780.39 03/11/2015 Ot 272.4 03/11/2015 Ot 780.39 03/11/2015 Ot 496 03/11/2015 Ot 786.2 03/11/2015 Ot 780.39 03/11/2015 Ot 780.39 03/11/2015 GELLENDER DO, AMANDEEP Pineda Ot 490 03/11/2015 GELLENDER DO, AMANDEEP Pineda Ot 496 03/11/2015 GELLENDER DO, AMANDEEP Pineda Ot 783.21 03/11/2015 GELLENDER DO, AMANDEEP Pineda Ot 496 03/11/2015 GELLENDER DO, AMANDEEP Pineda Ot 786.2 03/11/2015 GELLENDER DO, AMANDEEP Pineda Ot 783.21 03/11/2015 GELLENDER DO, AMANDEEP Pineda Ot 789.00 03/11/2015 GELLENDER DO, AMANDEEP Pineda Ot 783.21 03/11/2015 GELLENDER DO, AMANDEEP Pineda Ot 789.00 03/11/2015 GELLENDER DO, AMANDEEP Pineda Ot 272.4 03/11/2015 GELLENDER DO, AMANDEEP Pineda Ot 496 03/11/2015 GELLENDER DO, AMANDEEP Pineda Ot 780.39 03/11/2015 GELLENDER DO, AMANDEEP Pineda Ot 729.81 03/11/2015 GELLENDER DO, AMANDEEP Pineda Ot 780.79 03/11/2015 GABRIELLE RIOS, YELITZA Marie Ot 780.39 03/11/2015 GELLENDER DO, AMANDEEP Pineda Ot 825.25 03/11/2015 GELLENDER DO, AMANDEEP Pineda Ot E928.9 03/11/2015 GELLENDER DO, AMANDEEP Pineda Ot 780.39 03/11/2015 GELLENDER DO, AMANDEEP Pineda Ot 721.0 03/11/2015 GELLENDER DO, AMANDEEP Pineda Ot 496 03/11/2015 GELLENDER DO, AMANDEEP Pineda Ot 780.39 03/11/2015 Ot 272.4 03/11/2015 Ot 496 03/11/2015 Ot 780.39 03/11/2015 Ot 780.39 03/11/2015 Ot 272.4 03/11/2015 Ot 780.39 03/11/2015 Ot 496 03/11/2015 Ot 786.2 03/11/2015 Ot 780.39 03/11/2015 Ot 780.39 03/11/2015 GELLENDER DO, AMANDEEP Pineda Ot 490 03/11/2015 GELLENDER DO, AMANDEEP Pineda Ot 496 03/11/2015 GELLENDER DO, AMANDEEP Pineda Ot 783.21 03/11/2015 GELLENDER DO, AMANDEEP Pineda Ot 496 03/11/2015 GELLENDER DO, AMANDEEP Pineda Ot 786.2 03/11/2015 GELLENDER DO, AMANDEEP Pineda Ot 783.21 03/11/2015 GELLENDER DO, AMANDEEP Pineda Ot 789.00 03/11/2015 GELLENDER DO, AMANDEEP Pineda Ot 783.21 03/11/2015 GELLENDER DO, AMANDEEP Pineda Ot 789.00 03/11/2015 GELLENDER DO, AMANDEEP Pineda Ot 272.4 03/11/2015 GELLENDER DO, AMANDEEP Pineda Ot 496 03/11/2015 GELLENDER DO, AMANDEEP Pineda Ot 780.39 03/11/2015 GELLENDER DO, AMANDEEP Pineda Ot 729.81 03/11/2015 GELLENDER DO, AMANDEEP Pineda Ot 780.79 03/11/2015 YELITZA ANTHONY MD Ot 780.39 03/11/2015 GELLENDER DO, AMANDEEP Pineda Ot 825.25 03/11/2015 GELLENDER DO, AMANDEEP Pineda Ot E928.9 03/11/2015 GELLENDER DO, AMANDEEP Pineda Ot 780.39 03/11/2015 GELLENDER DO, AMANDEEP Pineda Ot 721.0 03/11/2015 GELLENDER DO, AMANDEEP Pineda Ot 496 03/11/2015 GELLENDER DO, AMANDEEP Pineda Ot 780.39 03/13/2015 GELLENDER DO, AMANDEEP Pineda Ot F17.210 03/13/2015 GELLENDER DO, AMANDEEP Pineda Ot G40.909 03/13/2015 GELLENDER DO, AMANDEEP Pineda Ot I10 03/13/2015 GELLENDER DO, AMANDEEP Pineda Ot J15.9 03/13/2015 GELLENDER DO, AMANDEEP Pineda Ot J44.1 03/13/2015 Ot 272.4 03/13/2015 Ot 496 03/13/2015 Ot 780.39 03/13/2015 Ot 780.39 03/13/2015 Ot 272.4 03/13/2015 Ot 780.39 03/13/2015 Ot 496 03/13/2015 Ot 786.2 03/13/2015 Ot 780.39 03/13/2015 Ot 780.39 03/13/2015 GELLENDER DO, AMANDEEP Pineda Ot 490 03/13/2015 GELLENDER DO, AMANDEEP Pineda Ot 496 03/13/2015 GELLENDER DO, AMANDEEP Pineda Ot 783.21 03/13/2015 GELLENDER DO, AMANDEEP Pineda Ot 496 03/13/2015 GELLENDER DO, AMANDEEP Pineda Ot 786.2 03/13/2015 GELLENDER DO, AMANDEEP Pineda Ot 783.21 03/13/2015 GELLENDER DO, AMANDEEP Pineda Ot 789.00 03/13/2015 GELLENDER DO, AMANDEEP Pineda Ot 783.21 03/13/2015 GELLENDER DO, AMANDEEP Pineda Ot 789.00 03/13/2015 GELLENDER DO, AMANDEEP Pineda Ot 272.4 03/13/2015 GELLENDER DO, AMANDEEP Pineda Ot 496 03/13/2015 GELLENDER DO, AMANDEEP Pineda Ot 780.39 03/13/2015 GELLENDER DO, AMANDEEP Pineda Ot 729.81 03/13/2015 GELLENDER DO, AMANDEEP Pineda Ot 780.79 03/13/2015 YELITZA ANTHONY MD Ot 780.39 03/13/2015 GELLENDER DO, AMANDEEP Pineda Ot 825.25 03/13/2015 GELLENDER DO, AMANDEEP Pineda Ot E928.9 03/13/2015 GELLENDER DO, AMANDEEP Pineda Ot 780.39 03/13/2015 GELLENDER DO, AMANDEEP Pineda Ot 721.0 03/13/2015 GELLENDER DO, AMANDEEP Pineda Ot 496 03/13/2015 GELLENDER DO, AMANDEEP Pineda Ot 780.39 03/13/2015 GELLENDER DO, AMANDEEP Pineda Ot F17.210 03/13/2015 GELLENDER DO, AMANDEEP Pineda Ot G40.909 03/13/2015 GELLENDER DO, AMANDEEP Pineda Ot I10 03/13/2015 GELLENDER DO, AMANDEEP Pineda Ot J15.9 03/13/2015 GELLENDER DO, AMANDEEP Pineda Ot J44.1 03/14/2015 GELLENDER DO, AMANDEEP Pineda Ot F17.210 NICOTINE DEPENDENCE, CIGARETTES, UNCOMPL 03/14/2015 GELLENDER DO, AMANDEEP Pineda Ot G40.909 EPILEPSY, UNSP, NOT INTRACTABLE, WITHOUT 03/14/2015 GELLENDER DO, AMANDEEP Miriam Ot I10 ESSENTIAL (PRIMARY) HYPERTENSION 03/14/2015 GELLENDER DO, AMANDEEP Pineda Ot J15.9 UNSPECIFIED BACTERIAL PNEUMONIA 03/14/2015 GELLENDER DO, AMANDEEP Pineda Ot J44.1 CHRONIC OBSTRUCTIVE PULMONARY DISEASE W 06/14/2015 Ot 272.4 06/14/2015 Ot 496 06/14/2015 Ot 780.39 06/14/2015 Ot 780.39 06/14/2015 Ot 272.4 06/14/2015 Ot 780.39 06/14/2015 Ot 496 06/14/2015 Ot 786.2 06/14/2015 Ot 780.39 06/14/2015 Ot 780.39 06/14/2015 GELLENDER DO, AMANDEEP Pineda Ot 490 06/14/2015 GELLENDER DO, AMANDEEP Pineda Ot 496 06/14/2015 GELLENDER DO, AMANDEEP Pineda Ot 783.21 06/14/2015 GELLENDER DO, AMANDEEP Pineda Ot 496 06/14/2015 GELLENDER DO, AMANDEEP Pineda Ot 786.2 06/14/2015 GELLENDER DO, AMANDEEP Pineda Ot 783.21 06/14/2015 GELLENDER DO, AMANDEEP Miriam Ot 789.00 06/14/2015 GELLENDER DO, AMANDEEP Pineda Ot 783.21 06/14/2015 GELLENDER DO, AMANDEEP Miriam Ot 789.00 06/14/2015 GELLENDER DO, AMANDEEP Miriam Ot 272.4 06/14/2015 GELLENDER DO, AMANDEEP Miriam Ot 496 06/14/2015 GELLENDER DO, AMANDEEP Pineda Ot 780.39 06/14/2015 GELLENDER DO, AMANDEEP Pineda Ot 729.81 06/14/2015 GELLENDER DO, AMANDEEP Pineda Ot 780.79 06/14/2015 GABRIELLE RIOS, YELITZA Marie Ot 780.39 06/14/2015 GELLENDER DO, AMANDEEP Pineda Ot 825.25 06/14/2015 GELLENDER DO, AMANDEEP Pineda Ot E928.9 06/14/2015 GELLENDER DO, AMANDEEP Pineda Ot 780.39 06/14/2015 GELLENDER DO, AMANDEEP Pineda Ot 721.0 06/14/2015 GELLENDER DO, AMANDEEP Pineda Ot 496 06/14/2015 GELLENDER DO, AMANDEEP Pineda Ot 780.39 06/14/2015 GELLENDER DO, AMANDEEP Miriam Ot E78.5 06/14/2015 GELLENDER DO, AMANDEEP Pineda Ot J44.9 06/14/2015 GELLENDER DO, AMANDEEP Pineda Ot M79.672 06/14/2015 GELLENDER DO, AMANDEEP Miriam Ot R56.9 06/14/2015 GELLENDER DO, AMANDEEP Miriam Ot Z87.81 06/15/2015 GELLENDER DO, AMANDEEP Miriam Ot E78.5 HYPERLIPIDEMIA, UNSPECIFIED 06/15/2015 GELLENDER DO, AMANDEEP Pineda Ot E87.1 HYPO-OSMOLALITY AND HYPONATREMIA 06/15/2015 GELLENDER DO, AMANDEEP Miriam Ot F17.210 NICOTINE DEPENDENCE, CIGARETTES, UNCOMPL 06/15/2015 GELLENDER DO, AMANDEEP Miriam Ot G40.909 EPILEPSY, UNSP, NOT INTRACTABLE, WITHOUT 06/15/2015 GELLENDER DO, AMANDEEP Pineda Ot I10 ESSENTIAL (PRIMARY) HYPERTENSION 06/15/2015 GELLENDER DO, AMANDEEP Pineda Ot J44.1 CHRONIC OBSTRUCTIVE PULMONARY DISEASE W 06/15/2015 GELLENDER DO, AMANDEEP Miriam Ot R26.81 UNSTEADINESS ON FEET 07/10/2015 GELLENDER DO, AMANDEEP Pineda Ot E78.5 07/14/2015 GELLENDER DO, AMANDEEP Pineda Ot E78.5 HYPERLIPIDEMIA, UNSPECIFIED 07/14/2015 GELLENDER DO, AMANDEEP Miriam Ot E78.5 HYPERLIPIDEMIA, UNSPECIFIED 07/14/2015 GELLENDER DO, AMANDEEP Pineda Ot J44.9 CHRONIC OBSTRUCTIVE PULMONARY DISEASE, U 07/14/2015 GELLENDER DO, AMANDEEP Pineda Ot M79.672 PAIN IN LEFT FOOT 07/14/2015 GELLENDER DO, AMANDEEP Miriam Ot R56.9 UNSPECIFIED CONVULSIONS 07/14/2015 GELLENDER DO, AMANDEEP Pineda Ot Z87.81 PERSONAL HISTORY OF (HEALED) TRAUMATIC F 07/26/2015 GELLENDER DO, AMANDEEP Pineda Ot E78.5 HYPERLIPIDEMIA, UNSPECIFIED 08/10/2015 Ot 780.39 OTHER CONVULSIONS 08/10/2015 Ot 272.4 HYPERLIPIDEMIA NEC/NOS 08/10/2015 Ot 780.39 OTHER CONVULSIONS 08/10/2015 Ot 496 CHR AIRWAY OBSTRUCT NEC 08/10/2015 Ot 786.2 COUGH 08/10/2015 Ot 780.39 OTHER CONVULSIONS 08/10/2015 Ot 780.39 OTHER CONVULSIONS 08/10/2015 GELLENDER DO, AMANDEEP Pineda Ot 490 BRONCHITIS NOS 08/10/2015 GELLENDER DO, AMANDEEP Pineda Ot 496 CHR AIRWAY OBSTRUCT NEC 08/10/2015 GELLENDER DO, AMANDEEP Pineda Ot 783.21 LOSS OF WEIGHT 08/10/2015 GELLENDER DO, AMANDEEP Pnieda Ot 496 CHR AIRWAY OBSTRUCT NEC 08/10/2015 GELLENDER DO, AMANDEEP Pineda Ot 786.2 COUGH 08/10/2015 GELLENDER DO, AMANDEEP Pineda Ot 783.21 LOSS OF WEIGHT 08/10/2015 GELLENDER DO, AMANDEEP Pineda Ot 789.00 ABDOMINAL PAIN, UNSPECIFIED SITE 08/10/2015 GELLENDER DO, AMANDEEP Pineda Ot 783.21 LOSS OF WEIGHT 08/10/2015 GELLENDER DO, AMANDEEP Pineda Ot 789.00 ABDOMINAL PAIN, UNSPECIFIED SITE 08/10/2015 GELLENDER DO, AMANDEEP Pineda Ot 272.4 HYPERLIPIDEMIA NEC/NOS 08/10/2015 GELLENDER DO, AMANDEEP Pineda Ot 496 CHR AIRWAY OBSTRUCT NEC 08/10/2015 GELLENDER DO, AMANDEEP Pineda Ot 780.39 OTHER CONVULSIONS 08/10/2015 GELLENDER DO, AMANDEEP Pineda Ot 729.81 SWELLING OF LIMB 08/10/2015 GELLENDER DO, AMANDEEP Pineda Ot 780.79 OTH MALAISE FATIGUE 08/10/2015 GABRIELLE RIOS, YELITZA Marie Ot 780.39 OTHER CONVULSIONS 08/10/2015 GELLENDER DO, AMANDEEP Pineda Ot 825.25 FX METATARSAL-CLOSED 08/10/2015 GELLENDER DO, AMANDEEP Pineda Ot E928.9 ACCIDENT NOS 08/10/2015 GELLENDER DO, AMANDEEP Pineda Ot 780.39 OTHER CONVULSIONS 08/10/2015 GELLENDER DO, AMANDEEP Pineda Ot 721.0 CERVICAL SPONDYLOSIS 08/10/2015 GELLENDER DO, AMANDEEP Pineda Ot 496 CHR AIRWAY OBSTRUCT NEC 08/10/2015 GELLENDER DO, AMANDEEP Pineda Ot 780.39 OTHER CONVULSIONS 08/10/2015 GELLENDER DO, AMANDEEP Pineda Ot E78.5 HYPERLIPIDEMIA, UNSPECIFIED 08/10/2015 GELLENDER DO, AMANDEEP Pineda Ot J44.9 CHRONIC OBSTRUCTIVE PULMONARY DISEASE, U 08/10/2015 GELLENDER DO, AMANDEEP Pineda Ot M79.672 PAIN IN LEFT FOOT 08/10/2015 GELLENDER DO, AMANDEEP Pineda Ot R56.9 UNSPECIFIED CONVULSIONS 08/10/2015 GELLENDER DO, AMANDEEP Pineda Ot Z87.81 PERSONAL HISTORY OF (HEALED) TRAUMATIC F 08/10/2015 GELLENDER DO, AMANDEEP Pineda Ot E78.5 HYPERLIPIDEMIA, UNSPECIFIED 08/11/2015 Ot 780.39 OTHER CONVULSIONS 08/11/2015 Ot 272.4 HYPERLIPIDEMIA NEC/NOS 08/11/2015 Ot 780.39 OTHER CONVULSIONS 08/11/2015 Ot 496 CHR AIRWAY OBSTRUCT NEC 08/11/2015 Ot 786.2 COUGH 08/11/2015 Ot 780.39 OTHER CONVULSIONS 08/11/2015 Ot 780.39 OTHER CONVULSIONS 08/11/2015 GELLENDER DO, AMANDEEP Pineda Ot 490 BRONCHITIS NOS 08/11/2015 GELLENDER DO, AMANDEEP Pineda Ot 496 CHR AIRWAY OBSTRUCT NEC 08/11/2015 GELLENDER DO, AMANDEEP Pineda Ot 783.21 LOSS OF WEIGHT 08/11/2015 GELLENDER DO, AMANDEEP Pineda Ot 496 CHR AIRWAY OBSTRUCT NEC 08/11/2015 GELLENDER DO, AMANDEEP Miriam Ot 786.2 COUGH 08/11/2015 GELLENDER DO, AMANDEEP Miriam Ot 783.21 LOSS OF WEIGHT 08/11/2015 GELLENDER DO, AMANDEEP Pineda Ot 789.00 ABDOMINAL PAIN, UNSPECIFIED SITE 08/11/2015 GELLENDER DO, AMANDEEP Pineda Ot 783.21 LOSS OF WEIGHT 08/11/2015 GELLENDER DO, AMANDEEP Pineda Ot 789.00 ABDOMINAL PAIN, UNSPECIFIED SITE 08/11/2015 GELLENDER DO, AMANDEEP Pineda Ot 272.4 HYPERLIPIDEMIA NEC/NOS 08/11/2015 GELLENDER DO, AMANDEEP Pineda Ot 496 CHR AIRWAY OBSTRUCT NEC 08/11/2015 GELLENDER DO, AMANDEEP Pineda Ot 780.39 OTHER CONVULSIONS 08/11/2015 GELLENDER DO, AMANDEEP Pineda Ot 729.81 SWELLING OF LIMB 08/11/2015 GELLENDER DO, AMANDEEP Pineda Ot 780.79 OTH MALAISE FATIGUE 08/11/2015 GABRIELLE RIOS, YELITZA R Ot 780.39 OTHER CONVULSIONS 08/11/2015 GELLENDER DO, AMANDEEP Pineda Ot 825.25 FX METATARSAL-CLOSED 08/11/2015 GELLENDER DO, AMANDEEP Pineda Ot E928.9 ACCIDENT NOS 08/11/2015 GELLENDER DO, AMANDEEP Pineda Ot 780.39 OTHER CONVULSIONS 08/11/2015 GELLENDER DO, AMANDEEP Pineda Ot 721.0 CERVICAL SPONDYLOSIS 08/11/2015 GELLENDER DO, AMANDEEP Pineda Ot 496 CHR AIRWAY OBSTRUCT NEC 08/11/2015 GELLENDER DO, AMANDEEP Pineda Ot 780.39 OTHER CONVULSIONS 08/11/2015 GELLENDER DO, AMANDEEP Pineda Ot E78.5 HYPERLIPIDEMIA, UNSPECIFIED 08/11/2015 GELLENDER DO, AMANDEEP Pineda Ot J44.9 CHRONIC OBSTRUCTIVE PULMONARY DISEASE, U 08/11/2015 GELLENDER DO, AMANDEEP Pineda Ot M79.672 PAIN IN LEFT FOOT 08/11/2015 GELLENDER DO, AMANDEEP Pineda Ot R56.9 UNSPECIFIED CONVULSIONS 08/11/2015 GELLENDER DO, AMANDEEP Pineda Ot Z87.81 PERSONAL HISTORY OF (HEALED) TRAUMATIC F 08/11/2015 GELLENDER DO, AMANDEEP Pineda Ot E78.5 HYPERLIPIDEMIA, UNSPECIFIED 08/15/2015 GELLENDER DOAMANDEEP Ot E87.1 HYPO-OSMOLALITY AND HYPONATREMIA 08/15/2015 GELLENDER DOAMANDEEP Ot F17.210 NICOTINE DEPENDENCE, CIGARETTES, UNCOMPL 08/15/2015 GELLENDER DO, AMANDEEP Pineda Ot G40.909 EPILEPSY, UNSP, NOT INTRACTABLE, WITHOUT 08/15/2015 GELLENDER DO, AMANDEEP Pineda Ot G47.30 SLEEP APNEA, UNSPECIFIED 08/15/2015 GELLENDER DOAMANDEEP Ot J18.9 PNEUMONIA, UNSPECIFIED ORGANISM 08/15/2015 GELLENDER DO, AMANDEEP Pineda Ot J44.1 CHRONIC OBSTRUCTIVE PULMONARY DISEASE W 10/24/2015 NOREEN CHÁVEZ APRN Ot F17.210 NICOTINE DEPENDENCE, CIGARETTES, UNCOMPL 10/24/2015 NOREEN CHÁVEZ APRN Ot G40.909 EPILEPSY, UNSP, NOT INTRACTABLE, WITHOUT 10/24/2015 NOREEN CHÁVEZ APRN Ot M47.892 OTHER SPONDYLOSIS, CERVICAL REGION 10/24/2015 NOREEN CHÁVEZ APRN Ot R42 DIZZINESS AND GIDDINESS 10/24/2015 NOREEN CHÁVEZ APRN Ot S01.312A LACERATION WITHOUT FOREIGN BODY OF LEFT 10/24/2015 NOREEN CHÁVEZ APRN Ot W01.0XXA FALL SAME LEV FROM SLIP/TRIP W/O STRIKE 10/24/2015 NOREEN CHÁVEZ APRN Ot Y92.[address] IN [facility] (PRIVATE 10/24/2015 NOREEN CHÁVEZ APRN Ot Y99.8 OTHER EXTERNAL CAUSE STATUS 10/24/2015 NOREEN CHÁVEZ APRN Ot Z23 ENCOUNTER FOR IMMUNIZATION 10/24/2015 NOREEN CHÁVEZ APRN Ot Z79.899 OTHER FLATBED STITCHER (CURRENT) DRUG THERAPY 10/25/2015 NOREEN CHÁVEZ APRN Ot F17.210 NICOTINE DEPENDENCE, CIGARETTES, UNCOMPL 10/25/2015 NOREEN CHÁVEZ APRN Ot G40.909 EPILEPSY, UNSP, NOT INTRACTABLE, WITHOUT 10/25/2015 NOREEN CHÁVEZ APRN Ot M47.892 OTHER SPONDYLOSIS, CERVICAL REGION 10/25/2015 NOREEN CHÁVEZ APRN Ot R42 DIZZINESS AND GIDDINESS 10/25/2015 NOREEN CHÁVEZ APRN Ot S01.312A LACERATION WITHOUT FOREIGN BODY OF LEFT 10/25/2015 NOREEN CHÁVEZ APRN Ot W01.0XXA FALL SAME LEV FROM SLIP/TRIP W/O STRIKE 10/25/2015 NOREEN CHÁVEZ APRN Ot Y92.[address] [facility] 10/25/2015 NOREEN CHÁVEZ APRN Ot Y99.8 OTHER EXTERNAL CAUSE STATUS 10/25/2015 NOREEN CHÁVEZ APRN Ot Z23 ENCOUNTER FOR IMMUNIZATION 10/25/2015 NOREEN CHÁVEZ APRN Ot Z79.899 OTHER SNF (CURRENT) DRUG THERAPY 11/01/2015 Ot 272.4 HYPERLIPIDEMIA NEC/NOS 11/01/2015 Ot 496 CHR AIRWAY OBSTRUCT NEC 11/01/2015 Ot 780.39 OTHER CONVULSIONS 11/01/2015 Ot 780.39 OTHER CONVULSIONS 11/01/2015 Ot 272.4 HYPERLIPIDEMIA NEC/NOS 11/01/2015 Ot 780.39 OTHER CONVULSIONS 11/01/2015 Ot 496 CH[employer] AIRWAY OBSTRUCT NEC 11/01/2015 Ot 786.2 COUGH 11/01/2015 Ot 496 CHR AIRWAY OBSTRUCT NEC 11/01/2015 Ot 786.2 COUGH 11/01/2015 Ot 272.4 HYPERLIPIDEMIA NEC/NOS 11/01/2015 Ot 780.39 OTHER CONVULSIONS 11/01/2015 Ot 780.39 OTHER CONVULSIONS 11/01/2015 Ot 272.4 HYPERLIPIDEMIA NEC/NOS 11/01/2015 Ot 496 CHR AIRWAY OBSTRUCT NEC 11/01/2015 Ot 780.39 OTHER CONVULSIONS 11/20/2015 MARY RIOS, STEFAN Zuniga Ot F17.210 NICOTINE DEPENDENCE, CIGARETTES, UNCOMPL 11/20/2015 MARY RIOS, STEFAN Zuniga Ot G40.909 EPILEPSY, UNSP, NOT INTRACTABLE, WITHOUT 11/20/2015 MARY RIOS, STEFAN Zuniga Ot R27.0 ATAXIA, UNSPECIFIED 11/20/2015 STEFAN HERNANDEZ MD Ot R41.82 ALTERED MENTAL STATUS, UNSPECIFIED 11/20/2015 STEFAN HERNANDEZ MD Ot Z53.29 PROC/TRTMT NOT CRD OUT BEC PT DECISION F 11/26/2015 STEFAN HERNANDEZ MD Ot F17.210 NICOTINE DEPENDENCE, CIGARETTES, UNCOMPL 11/26/2015 STEFAN HERNANDEZ MD Ot G40.909 EPILEPSY, UNSP, NOT INTRACTABLE, WITHOUT 11/26/2015 STEFAN HERNANDEZ MD Ot R27.0 ATAXIA, UNSPECIFIED 11/26/2015 STEFAN HERNANDEZ MD Ot R41.82 ALTERED MENTAL STATUS, UNSPECIFIED 11/26/2015 STEFAN HERNANDEZ MD Ot Z53.29 PROC/TRTMT NOT CRD OUT BEC PT DECISION F 12/14/2015 AMANDEEP GENAO DO Ot R56.9 UNSPECIFIED CONVULSIONS 02/19/2016 AMANDEEP GENAO DO Ot R56.9 UNSPECIFIED CONVULSIONS 02/21/2016 Ot 272.4 HYPERLIPIDEMIA NEC/NOS 02/21/2016 Ot 780.39 OTHER CONVULSIONS 02/21/2016 Ot 496 CH[employer] AIRWAY OBSTRUCT NEC 02/21/2016 Ot 786.2 COUGH 02/21/2016 Ot 780.39 OTHER CONVULSIONS 02/21/2016 Ot 780.39 OTHER CONVULSIONS 02/21/2016 GELLENDER DO, AMANDEEP Pineda Ot 490 BRONCHITIS NOS 02/21/2016 GELLENDER DO, AMANDEEP Pineda Ot 496 CHR AIRWAY OBSTRUCT NEC 02/21/2016 GELLENDER DO, AMANDEEP Pineda Ot 783.21 LOSS OF WEIGHT 02/21/2016 GELLENDER DO, AMANDEEP Pineda Ot 496 CHR AIRWAY OBSTRUCT NEC 02/21/2016 GELLENDER DO, AMANDEEP Pineda Ot 786.2 COUGH 02/21/2016 GELLENDER DO, AMANDEEP Pineda Ot 783.21 LOSS OF WEIGHT 02/21/2016 GELLENDER DO, AMANDEEP Pineda Ot 789.00 ABDOMINAL PAIN, UNSPECIFIED SITE 02/21/2016 GELLENDER DO, AMANDEEP Pineda Ot 783.21 LOSS OF WEIGHT 02/21/2016 GELLENDER DO, AMANDEEP Pineda Ot 789.00 ABDOMINAL PAIN, UNSPECIFIED SITE 02/21/2016 GELLENDER DO, AMANDEEP Pineda Ot 272.4 HYPERLIPIDEMIA NEC/NOS 02/21/2016 GELLENDER DO, AMANDEEP Pineda Ot 496 CHR AIRWAY OBSTRUCT NEC 02/21/2016 GELLENDER DO, AMANDEEP Pineda Ot 780.39 OTHER CONVULSIONS 02/21/2016 GELLENDER DO, AMANDEEP Pineda Ot 729.81 SWELLING OF LIMB 02/21/2016 GELLENDER DOAMANDEEP Ot 780.79 OTH MALAISE FATIGUE 02/21/2016 GABRIELLE RIOS, YELITZA Marie Ot 780.39 OTHER CONVULSIONS 02/21/2016 GELLENDER DO, AMANDEEP Pineda Ot 825.25 FX METATARSAL-CLOSED 02/21/2016 GELLENDER DOAMANDEEP Ot E928.9 ACCIDENT NOS 02/21/2016 GELLENDER DOAMANDEEP Ot 780.39 OTHER CONVULSIONS 02/21/2016 GELLENDER DO, AMANDEEP Pineda Ot 721.0 CERVICAL SPONDYLOSIS 02/21/2016 GELLENDER DO, AMANDEEP Pineda Ot 496 CHR AIRWAY OBSTRUCT NEC 02/21/2016 GELLENDER DO, AMANDEEP Pineda Ot 780.39 OTHER CONVULSIONS 02/21/2016 GELLENDER DOAMANDEEP Ot E78.5 HYPERLIPIDEMIA, UNSPECIFIED 02/21/2016 GELLENDER DO, AMANDEEP Pineda Ot J44.9 CHRONIC OBSTRUCTIVE PULMONARY DISEASE, U 02/21/2016 GELLENDER DO, AMANDEEP Pineda Ot M79.672 PAIN IN LEFT FOOT 02/21/2016 GELLENDER DO, AMANDEEP Miriam Ot R56.9 UNSPECIFIED CONVULSIONS 02/21/2016 GELLENDER DO, AMANDEEP Pineda Ot Z87.81 PERSONAL HISTORY OF (HEALED) TRAUMATIC F 02/21/2016 GELLENDER DO, AMANDEEP Miriam Ot E78.5 HYPERLIPIDEMIA, UNSPECIFIED 02/21/2016 GELLENDER DO, AMANDEEP Pineda Ot R56.9 UNSPECIFIED CONVULSIONS 02/21/2016 GELLENDER DO, AMANDEEP Pineda Ot F17.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, UNSPECIFIED, UNCOMP 02/21/2016 GELLENDER DO, AMANDEEP Miriam Ot J44.9 CHRONIC OBSTRUCTIVE PULMONARY DISEASE, U 02/21/2016 GELLENDER DO, AMANDEEP Pineda Ot R63.4 ABNORMAL WEIGHT LOSS 02/21/2016 Ot 272.4 HYPERLIPIDEMIA NEC/NOS 02/21/2016 Ot 780.39 OTHER CONVULSIONS 02/21/2016 Ot 496 CHR AIRWAY OBSTRUCT NEC 02/21/2016 Ot 786.2 COUGH 02/21/2016 Ot 780.39 OTHER CONVULSIONS 02/21/2016 Ot 780.39 OTHER CONVULSIONS 02/21/2016 GELLENDER DO, AMANDEEP Pineda Ot 490 BRONCHITIS NOS 02/21/2016 GELLENDER DO, AMANDEEP Pineda Ot 496 CHR AIRWAY OBSTRUCT NEC 02/21/2016 GELLENDER DO, AMANDEEP Pineda Ot 783.21 LOSS OF WEIGHT 02/21/2016 GELLENDER DO, AMANDEEP Pineda Ot 496 CHR AIRWAY OBSTRUCT NEC 02/21/2016 GELLENDER DO, AMANDEEP Pineda Ot 786.2 COUGH 02/21/2016 GELLENDER DO, AMANDEEP Pineda Ot 783.21 LOSS OF WEIGHT 02/21/2016 GELLENDER DO, AMANDEEP Pineda Ot 789.00 ABDOMINAL PAIN, UNSPECIFIED SITE 02/21/2016 GELLENDER DO, AMANDEEP Pineda Ot 783.21 LOSS OF WEIGHT 02/21/2016 GELLENDER DO, AMANDEEP Pineda Ot 789.00 ABDOMINAL PAIN, UNSPECIFIED SITE 02/21/2016 GELLENDER DO, AMANDEEP Pineda Ot 272.4 HYPERLIPIDEMIA NEC/NOS 02/21/2016 GELLENDER DO, AMANDEEP Pineda Ot 496 CHR AIRWAY OBSTRUCT NEC 02/21/2016 GELLENDER DO, AMANDEEP Pineda Ot 780.39 OTHER CONVULSIONS 02/21/2016 CHADWICK LASSITER, AMANDEEP Pineda Ot 729.81 SWELLING OF LIMB 02/21/2016 AMANDEEP GENAO DO Ot 780.79 OTH MALAISE FATIGUE 02/21/2016 GABRIELLE RIOS, YELITZA Marie Ot 780.39 OTHER CONVULSIONS 02/21/2016 AMANDEEP GENAO DO Ot 825.25 FX METATARSAL-CLOSED 02/21/2016 AMANDEEP GENAO DO Ot E928.9 ACCIDENT NOS 02/21/2016 AMANDEEP GENAO DO Ot 780.39 OTHER CONVULSIONS 02/21/2016 AMANDEEP GENAO DO Ot 721.0 CERVICAL SPONDYLOSIS 02/21/2016 AMANDEEP GENAO DO Ot 496 CHR AIRWAY OBSTRUCT NEC 02/21/2016 AMANDEEP GENAO DO Ot 780.39 OTHER CONVULSIONS 02/21/2016 AMANDEEP GENAO DO Ot E78.5 HYPERLIPIDEMIA, UNSPECIFIED 02/21/2016 AMANDEEP GENAO DO Ot J44.9 CHRONIC OBSTRUCTIVE PULMONARY DISEASE, U 02/21/2016 AMANDEEP GNEAO DO Ot M79.672 PAIN IN LEFT FOOT 02/21/2016 AMANDEEP GENAO DO Ot R56.9 UNSPECIFIED CONVULSIONS 02/21/2016 AMANDEEP GENAO DO Ot Z87.81 PERSONAL HISTORY OF (HEALED) TRAUMATIC F 02/21/2016 AMANDEEP GENAO DO Ot E78.5 HYPERLIPIDEMIA, UNSPECIFIED 02/21/2016 AMANDEEP GENAO DO Ot F17.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, UNSPECIFIED, UNCOMP 02/21/2016 AMANDEEP GENAO DO Ot J44.9 CHRONIC OBSTRUCTIVE PULMONARY DISEASE, U 02/21/2016 AMANDEEP GENAO DO Ot R63.4 ABNORMAL WEIGHT LOSS 02/22/2016 MARY RIOS, STEFAN Zuniga Ot F17.210 NICOTINE DEPENDENCE, CIGARETTES, UNCOMPL 02/22/2016 MARY RIOS, STEFAN Zuniga Ot G40.909 EPILEPSY, UNSP, NOT INTRACTABLE, WITHOUT 02/22/2016 MARY RIOS, STEFAN Zuniga Ot R27.0 ATAXIA, UNSPECIFIED 02/22/2016 MARY RIOS, STEFAN Zuniga Ot R41.82 ALTERED MENTAL STATUS, UNSPECIFIED 02/22/2016 MARY RIOS, STEFAN Zuniga Ot Z53.29 PROC/TRTMT NOT CRD OUT BEC PT DECISION F 02/22/2016 GELLENDER DO, AMANDEEP Pineda Ot F17.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, UNSPECIFIED, UNCOMP 02/22/2016 GELLENDER DO, AMANDEEP Pineda Ot J44.9 CHRONIC OBSTRUCTIVE PULMONARY DISEASE, U 02/22/2016 GELLENDER DO, AMANDEEP Pineda Ot R63.4 ABNORMAL WEIGHT LOSS 02/27/2016 GELLENDER DO, AMANDEEP Pineda Ot J44.9 CHRONIC OBSTRUCTIVE PULMONARY DISEASE, U 02/27/2016 GELLENDER DO, AMANDEEP Pineda Ot R63.4 ABNORMAL WEIGHT LOSS 02/28/2016 GELLENDER DO, AMANDEEP Pineda Ot R56.9 UNSPECIFIED CONVULSIONS 02/28/2016 GELLENDER DO, AMANDEEP Pineda Ot F17.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, UNSPECIFIED, UNCOMP 02/28/2016 GELLENDER DO, AMANDEEP Pineda Ot J44.9 CHRONIC OBSTRUCTIVE PULMONARY DISEASE, U 02/28/2016 GELLENDER DO, AMANDEEP Pineda Ot R63.4 ABNORMAL WEIGHT LOSS 02/28/2016 Ot 272.4 HYPERLIPIDEMIA NEC/NOS 02/28/2016 Ot 780.39 OTHER CONVULSIONS 02/28/2016 Ot 496 CHR AIRWAY OBSTRUCT NEC 02/28/2016 Ot 786.2 COUGH 02/28/2016 Ot 780.39 OTHER CONVULSIONS 02/28/2016 Ot 780.39 OTHER CONVULSIONS 02/28/2016 GELLENDER DO, AMANDEEP Pineda Ot 490 BRONCHITIS NOS 02/28/2016 GELLENDER DO, AMANDEEP Pineda Ot 496 CHR AIRWAY OBSTRUCT NEC 02/28/2016 GELLENDER DO, AMANDEEP Pineda Ot 783.21 LOSS OF WEIGHT 02/28/2016 GELLENDER DO, AMANDEEP Pineda Ot 496 CHR AIRWAY OBSTRUCT NEC 02/28/2016 GELLENDER DO, AMANDEEP Pineda Ot 786.2 COUGH 02/28/2016 GELLENDER DO, AMANDEEP Pineda Ot 783.21 LOSS OF WEIGHT 02/28/2016 GELLENDER DO, AMANDEEP Pineda Ot 789.00 ABDOMINAL PAIN, UNSPECIFIED SITE 02/28/2016 GELLENDER DO, AMANDEEP Miriam Ot 783.21 LOSS OF WEIGHT 02/28/2016 GELLENDER DO, AMANDEEP Pineda Ot 789.00 ABDOMINAL PAIN, UNSPECIFIED SITE 02/28/2016 GELLENDER DO, AMANDEEP Pineda Ot 272.4 HYPERLIPIDEMIA NEC/NOS 02/28/2016 GELLENDER DO, AMANDEEP Pineda Ot 496 CHR AIRWAY OBSTRUCT NEC 02/28/2016 CHADWICK LASSITER, AMANDEEP Pineda Ot 780.39 OTHER CONVULSIONS 02/28/2016 CHADWICK LASSITER, AMANDEEP Pineda Ot 729.81 SWELLING OF LIMB 02/28/2016 CHADWICK LASSITER, AMANDEEP Pineda Ot 780.79 OTH MALAISE FATIGUE 02/28/2016 GABRIELLE RIOS, YELITZA R Ot 780.39 OTHER CONVULSIONS 02/28/2016 CHADWICK LASSITER, AMANDEEP Pineda Ot 825.25 FX METATARSAL-CLOSED 02/28/2016 CHADWICK LASSITER, AMANDEEP Pineda Ot E928.9 ACCIDENT NOS 02/28/2016 CHADWICK LASSITER, AMANDEEP Pineda Ot 780.39 OTHER CONVULSIONS 02/28/2016 CHADWICK LASSITER, AMANDEEP Pineda Ot 721.0 CERVICAL SPONDYLOSIS 02/28/2016 CHADWICK LASSITER AMANDEEP Pineda Ot 496 CHR AIRWAY OBSTRUCT NEC 02/28/2016 CHADWICK LASSITER AMANDEEP Pineda Ot 780.39 OTHER CONVULSIONS 02/28/2016 CHADWICK LASSITERAMANDEEP Ot E78.5 HYPERLIPIDEMIA, UNSPECIFIED 02/28/2016 CHADWICK LASSITERAMANDEEP Ot J44.9 CHRONIC OBSTRUCTIVE PULMONARY DISEASE, U 02/28/2016 CHADWICK LASSITERAMANDEEP Ot M79.672 PAIN IN LEFT FOOT 02/28/2016 CHADWICK LASSITERAMANDEEP Ot R56.9 UNSPECIFIED CONVULSIONS 02/28/2016 CHADWICK LASSITERAMANDEEP Ot Z87.81 PERSONAL HISTORY OF (HEALED) TRAUMATIC F 02/28/2016 CHADWICK LASSITERAMANDEEP Ot E78.5 HYPERLIPIDEMIA, UNSPECIFIED 02/28/2016 CHADWICK LASSITERAMANDEEP Ot F17.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, UNSPECIFIED, UNCOMP 02/28/2016 CHADWICK LASSITERAMANDEEP Ot J44.9 CHRONIC OBSTRUCTIVE PULMONARY DISEASE, U 02/28/2016 CHADWICK LASSITERAMANDEEP Ot R63.4 ABNORMAL WEIGHT LOSS 02/28/2016 CHADWICK LASSITERAMANDEEP Ot J44.9 CHRONIC OBSTRUCTIVE PULMONARY DISEASE, U 02/28/2016 CHADWICK LASSITERAMANDEEP Ot R63.4 ABNORMAL WEIGHT LOSS 02/29/2016 CHADWICK LASSITERAMANDEEP Ot R63.4 ABNORMAL WEIGHT LOSS 03/05/2016 CHADWICK LASSITERAMANDEEP Ot J44.9 CHRONIC OBSTRUCTIVE PULMONARY DISEASE, U 03/05/2016 GELLENDER DO, AMANDEEP Pineda Ot R63.4 ABNORMAL WEIGHT LOSS 03/05/2016 GELLENDER DO, AMANDEEP Pineda Ot F17.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, UNSPECIFIED, UNCOMP 03/05/2016 GELLENDER DO, AMANDEEP Miriam Ot J44.9 CHRONIC OBSTRUCTIVE PULMONARY DISEASE, U 03/05/2016 GELLENDER DO, AMANDEEP Pineda Ot R63.4 ABNORMAL WEIGHT LOSS 03/05/2016 GELLENDER DO, AMANDEEP Miriam Ot R56.9 UNSPECIFIED CONVULSIONS 03/06/2016 GELLENDER DO, AMANDEEP Miriam Ot R56.9 UNSPECIFIED CONVULSIONS 03/15/2016 GELLENDER DO, AMANDEEP Miriam Ot R63.4 ABNORMAL WEIGHT LOSS 04/11/2016 GELLENDER DO, AMANDEEP Miriam Ot R56.9 UNSPECIFIED CONVULSIONS 04/11/2016 GELLENDER DO, AMANDEEP Miriam Ot F17.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, UNSPECIFIED, UNCOMP 04/11/2016 GELLENDER DO, AMANDEEP Pineda Ot J44.9 CHRONIC OBSTRUCTIVE PULMONARY DISEASE, U 04/11/2016 GELLENDER DO, AMANDEEP Pineda Ot R63.4 ABNORMAL WEIGHT LOSS 04/11/2016 GELLENDER DO, AMANDEEP Pineda Ot J44.9 CHRONIC OBSTRUCTIVE PULMONARY DISEASE, U 04/11/2016 GELLENDER DO, AMANDEEP Pineda Ot R63.4 ABNORMAL WEIGHT LOSS 04/11/2016 GELLENDER DO, AMANDEEP Pineda Ot R63.4 ABNORMAL WEIGHT LOSS 04/23/2016 GELLENDER DO, AMANDEEP Pineda Ot F17.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, UNSPECIFIED, UNCOMP 04/23/2016 GELLENDER DO, AMANDEEP Pineda Ot J44.9 CHRONIC OBSTRUCTIVE PULMONARY DISEASE, U 04/23/2016 GELLENDER DO, AMANDEEP A Ot R63.4 ABNORMAL WEIGHT LOSS 04/23/2016 GELLENDER DO, AMANDEEP Pineda Ot J44.9 CHRONIC OBSTRUCTIVE PULMONARY DISEASE, U 04/23/2016 GELLENDER DO, AMANDEEP A Ot R63.4 ABNORMAL WEIGHT LOSS 04/23/2016 GELLENDER DO, AMANDEEP A Ot R63.4 ABNORMAL WEIGHT LOSS 08/26/2016 GELLENDER DO, AMANDEEP Miriam Ot G40.909 EPILEPSY, UNSP, NOT INTRACTABLE, WITHOUT 08/26/2016 GELLENDER DO, AMANDEEP Pineda Ot J44.9 CHRONIC OBSTRUCTIVE PULMONARY DISEASE, U 09/05/2016 GELLENDER DO, AMANDEEP Pineda Ot G40.909 EPILEPSY, UNSP, NOT INTRACTABLE, WITHOUT 09/05/2016 GELLENDER DO, AMANDEEP Pineda Ot J44.9 CHRONIC OBSTRUCTIVE PULMONARY DISEASE, U 09/11/2016 GELLENDER DO, AMANDEEP Miriam Ot E87.1 HYPO-OSMOLALITY AND HYPONATREMIA 09/11/2016 GELLENDER DO, AMANDEEP Pineda Ot G40.909 EPILEPSY, UNSP, NOT INTRACTABLE, WITHOUT 10/17/2016 GELLENDER DO, AMANDEEP Pineda Ot E87.1 HYPO-OSMOLALITY AND HYPONATREMIA 10/17/2016 GELLENDER DO, AMANDEEP Pineda Ot G40.909 EPILEPSY, UNSP, NOT INTRACTABLE, WITHOUT 12/19/2016 GELLENDER DO, AMANDEEP Miriam Ot E87.1 HYPO-OSMOLALITY AND HYPONATREMIA 12/19/2016 GELLENDER DO, AMANDEEP Miriam Ot G40.909 EPILEPSY, UNSP, NOT INTRACTABLE, WITHOUT 12/20/2016 GELLENDER DO, AMANDEEP Miriam Ot G40.909 EPILEPSY, UNSP, NOT INTRACTABLE, WITHOUT 12/20/2016 GELLENDER DO, AMANDEEP Pineda Ot J44.9 CHRONIC OBSTRUCTIVE PULMONARY DISEASE, U 12/25/2016 GELLENDER DO, AMANDEEP Pineda Ot J44.9 CHRONIC OBSTRUCTIVE PULMONARY DISEASE, U 12/31/2016 GELLENDER DO, AMANDEEP Pineda Ot J44.9 CHRONIC OBSTRUCTIVE PULMONARY DISEASE, U 01/23/2017 GELLENDER DO, AMANDEEP Miriam Ot G40.909 EPILEPSY, UNSP, NOT INTRACTABLE, WITHOUT 01/23/2017 GELLENDER DO, AMANDEEP Pineda Ot J34.89 OTHER SPECIFIED DISORDERS OF NOSE AND NA 01/23/2017 GELLENDER DO, AMANDEEP Pineda Ot S99.912A UNSPECIFIED INJURY OF LEFT ANKLE, INITIA 01/23/2017 GELLENDER DO, AMANDEEP Pineda Ot W19.XXXA UNSPECIFIED FALL, INITIAL ENCOUNTER 01/23/2017 GELLENDER DO, AMANDEEP Pineda Ot Y99.8 OTHER EXTERNAL CAUSE STATUS 01/28/2017 GELLENDER DO, AMANDEEP Miriam Ot G40.909 EPILEPSY, UNSP, NOT INTRACTABLE, WITHOUT 01/28/2017 GELLENDER DO, AMANDEEP Pineda Ot J34.89 OTHER SPECIFIED DISORDERS OF NOSE AND NA 01/28/2017 GELLENDER DO, AMANDEEP Pineda Ot S99.912A UNSPECIFIED INJURY OF LEFT ANKLE, INITIA 01/28/2017 GELLENDER DO, AMANDEEP Pineda Ot W19.XXXA UNSPECIFIED FALL, INITIAL ENCOUNTER 01/28/2017 GELLENDER DO, AMANDEEP Pineda Ot Y99.8 OTHER EXTERNAL CAUSE STATUS 02/04/2017 Ot 780.39 OTHER CONVULSIONS 02/04/2017 Ot 780.39 OTHER CONVULSIONS 02/04/2017 GELLENDER DO, AMANDEEP Pineda Ot 490 BRONCHITIS NOS 02/04/2017 GELLENDER DO, AMANDEEP Pineda Ot 496 CHR AIRWAY OBSTRUCT NEC 02/04/2017 GELLENDER DO, AMANDEEP Pineda Ot 783.21 LOSS OF WEIGHT 02/04/2017 GELLENDER DO, AMANDEEP Pineda Ot 496 CHR AIRWAY OBSTRUCT NEC 02/04/2017 GELLENDER DO, AMANDEEP Pineda Ot 786.2 COUGH 02/04/2017 GELLENDER DO, AMANDEEP Pineda Ot 783.21 LOSS OF WEIGHT 02/04/2017 GELLENDER DO, AMANDEEP Pineda Ot 789.00 ABDOMINAL PAIN, UNSPECIFIED SITE 02/04/2017 GELLENDER DO, AMANDEEP Pineda Ot 783.21 LOSS OF WEIGHT 02/04/2017 GELLENDER DO, AMANDEEP Pineda Ot 789.00 ABDOMINAL PAIN, UNSPECIFIED SITE 02/04/2017 GELLENDER DO, AMANDEEP Pineda Ot 272.4 HYPERLIPIDEMIA NEC/NOS 02/04/2017 GELLENDER DO, AMANDEEP Pineda Ot 496 CHR AIRWAY OBSTRUCT NEC 02/04/2017 GELLENDER DO, AMANDEEP Pineda Ot 780.39 OTHER CONVULSIONS 02/04/2017 GELLENDER DO, AMANDEEP Pineda Ot 729.81 SWELLING OF LIMB 02/04/2017 GELLENDER DO, AMANDEEP Pineda Ot 780.79 OTH MALAISE FATIGUE 02/04/2017 GABRIELLE RIOS, YELITZA Marie Ot 780.39 OTHER CONVULSIONS 02/04/2017 GELLENDER DO, AMANDEEP Pineda Ot 825.25 FX METATARSAL-CLOSED 02/04/2017 GELLENDER DO, AMANDEEP Pineda Ot E928.9 ACCIDENT NOS 02/04/2017 GELLENDER DO, AMANDEEP Pineda Ot 780.39 OTHER CONVULSIONS 02/04/2017 GELLENDER DO, AMANDEEP Pineda Ot 721.0 CERVICAL SPONDYLOSIS 02/04/2017 GELLENDER DO, AMANDEEP Pineda Ot 496 CHR AIRWAY OBSTRUCT NEC 02/04/2017 GELLENDER DO, AMANDEEP Pineda Ot 780.39 OTHER CONVULSIONS 02/04/2017 GELLENDER DO, AMANDEEP Pineda Ot E78.5 HYPERLIPIDEMIA, UNSPECIFIED 02/04/2017 GELLENDER DO, AMANDEEP Pineda Ot J44.9 CHRONIC OBSTRUCTIVE PULMONARY DISEASE, U 02/04/2017 GELLENDER DO, AMANDEEP Pineda Ot M79.672 PAIN IN LEFT FOOT 02/04/2017 GELLENDER DO, AMANDEEP Pineda Ot R56.9 UNSPECIFIED CONVULSIONS 02/04/2017 GELLENDER DO, AMANDEEP Pineda Ot Z87.81 PERSONAL HISTORY OF (HEALED) TRAUMATIC F 02/04/2017 GELLENDER DO, AMANDEEP Pineda Ot E78.5 HYPERLIPIDEMIA, UNSPECIFIED 02/04/2017 GELLENDER DO, AMANDEEP Pineda Ot R56.9 UNSPECIFIED CONVULSIONS 02/04/2017 GELLENDER DO, AMANDEEP Pineda Ot J44.9 CHRONIC OBSTRUCTIVE PULMONARY DISEASE, U 02/04/2017 GELLENDER DO, AMANDEEP Pineda Ot R63.4 ABNORMAL WEIGHT LOSS 02/04/2017 GELLENDER DO, AMANDEEP Pineda Ot R63.4 ABNORMAL WEIGHT LOSS 02/04/2017 GELLENDER DO, AMANDEEP Pineda Ot G40.909 EPILEPSY, UNSP, NOT INTRACTABLE, WITHOUT 02/04/2017 GELLENDER DO, AMANDEEP Pineda Ot J34.89 OTHER SPECIFIED DISORDERS OF NOSE AND NA 02/04/2017 GELLENDER DO, AMANDEEP Pineda Ot S99.912A UNSPECIFIED INJURY OF LEFT ANKLE, INITIA 02/04/2017 GELLENDER DO, AMANDEEP Pineda Ot W19.XXXA UNSPECIFIED FALL, INITIAL ENCOUNTER 02/04/2017 JOSEDER DO, AMANDEEP Pineda Ot Y99.8 OTHER EXTERNAL CAUSE STATUS 02/10/2017 GELLENDER DO, AMANDEEP Pineda Ot G40.909 EPILEPSY, UNSP, NOT INTRACTABLE, WITHOUT 02/10/2017 GELLENDER DO, AMANDEEP Pineda Ot R06.02 SHORTNESS OF BREATH 02/10/2017 GELLENDER DO, AMANDEEP Pineda Ot R63.4 ABNORMAL WEIGHT LOSS 02/10/2017 GELLENDER DO, AMANDEEP Pineda Ot G40.909 EPILEPSY, UNSP, NOT INTRACTABLE, WITHOUT 02/10/2017 GELLENDER DO, AMANDEEP Pineda Ot R06.02 SHORTNESS OF BREATH 02/10/2017 GELLENDER DO, AMANDEEP Pineda Ot R63.4 ABNORMAL WEIGHT LOSS 02/10/2017 GELLENDER DO, AMANDEEP Pineda Ot R56.9 UNSPECIFIED CONVULSIONS 02/10/2017 GELLENDER DO, AMANDEEP Pineda Ot F17.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, UNSPECIFIED, UNCOMP 02/10/2017 GELLENDER DO, AMANDEEP Pineda Ot J44.9 CHRONIC OBSTRUCTIVE PULMONARY DISEASE, U 02/10/2017 GELLENDER DO, AMANDEEP Pineda Ot R63.4 ABNORMAL WEIGHT LOSS 02/10/2017 BROOKENUNUDER DO, AMANDEEP Pineda Ot J44.9 CHRONIC OBSTRUCTIVE PULMONARY DISEASE, U 02/10/2017 BROOKELENDER DO, AMANDEEP Pineda Ot R63.4 ABNORMAL WEIGHT LOSS 02/10/2017 GELLENDER DO, AMANDEEP Pineda Ot R63.4 ABNORMAL WEIGHT LOSS 02/10/2017 [place] DO, AMANDEEP Pineda Ot G40.909 EPILEPSY, UNSP, NOT INTRACTABLE, WITHOUT 02/10/2017 GELLENDER DO, AMANDEEP Pineda Ot J44.9 CHRONIC OBSTRUCTIVE PULMONARY DISEASE, U 02/10/2017 JOSEDER DO, AMANDEEP Pineda Ot E87.1 HYPO-OSMOLALITY AND HYPONATREMIA 02/10/2017 JOSEDER DO, AMANDEEP Pineda Ot G40.909 EPILEPSY, UNSP, NOT INTRACTABLE, WITHOUT 02/10/2017 GELLENDER DO, AMANDEEP Pineda Ot J44.9 CHRONIC OBSTRUCTIVE PULMONARY DISEASE, U 02/10/2017 BROOKENUNUBRAYAN DO, AMANDEEP Pineda Ot G40.909 EPILEPSY, UNSP, NOT INTRACTABLE, WITHOUT 02/10/2017 GELLENDER DOAMANDEEP Ot J34.89 OTHER SPECIFIED DISORDERS OF NOSE AND NA 02/10/2017 AMANDEEP GENAO DO Ot S99.912A UNSPECIFIED INJURY OF LEFT ANKLE, INITIA 02/10/2017 [place] AMANDEEP LASSITER Ot W19.XXXA UNSPECIFIED FALL, INITIAL ENCOUNTER 02/10/2017 BROOKENUNUBRAYAN , AMANDEEP Pineda Ot Y99.8 OTHER EXTERNAL CAUSE STATUS 02/10/2017 AMANDEEP GENAO DO Ot G40.909 EPILEPSY, UNSP, NOT INTRACTABLE, WITHOUT 02/10/2017 GELLENDER DOAMANDEEP Ot R06.02 SHORTNESS OF BREATH 02/10/2017 GELNUNUDER DOAMANDEEP Ot R63.4 ABNORMAL WEIGHT LOSS 02/24/2017 [place] DO, AMANDEEP Pineda Ot G40.909 EPILEPSY, UNSP, NOT INTRACTABLE, WITHOUT 02/24/2017 BROOKELENAMANDEEP SCHMIDT DO Ot R06.02 SHORTNESS OF BREATH 02/24/2017 GELLENDER DOAMANDEEP Ot R63.4 ABNORMAL WEIGHT LOSS 03/03/2017 [place] DOAMANDEEP Ot F17.210 NICOTINE DEPENDENCE, CIGARETTES, UNCOMPL 03/03/2017 GELLENDER DO, AMANDEEP Pineda Ot G40.909 EPILEPSY, UNSP, NOT INTRACTABLE, WITHOUT 03/03/2017 GELLENDER DO, AMANDEEP Pineda Ot G47.30 SLEEP APNEA, UNSPECIFIED 03/03/2017 GELLENDER DO, AMANDEEP Pineda Ot J18.9 PNEUMONIA, UNSPECIFIED ORGANISM 03/03/2017 GELLENDER DO, AMANDEEP Pineda Ot J44.1 CHRONIC OBSTRUCTIVE PULMONARY DISEASE W 03/03/2017 GELLENDER DO, AMANDEEP Pineda Ot J96.22 ACUTE AND CHRONIC RESPIRATORY FAILURE WI 03/03/2017 GELLENDER DO, AMANDEEP Pineda Ot 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, STAGE 2 03/03/2017 GELLENDER DO, AMANDEEP Pineda Ot L89.322 PRESSURE ULCER OF LEFT BUTTOCK, STAGE 2 03/11/2017 GELLENDER DO, AMANDEEP Pnieda Ot A41.9 SEPSIS, UNSPECIFIED ORGANISM 03/11/2017 GELLENDER DO, AMANDEEP Pineda Ot E83.42 HYPOMAGNESEMIA 03/11/2017 GELLENDER DO, AMANDEEP Pineda Ot F17.210 NICOTINE DEPENDENCE, CIGARETTES, UNCOMPL 03/11/2017 GELLENDER DO, AMANDEEP Pineda Ot G40.909 EPILEPSY, UNSP, NOT INTRACTABLE, WITHOUT 03/11/2017 GELLENDER DO, AMANDEEP Pineda Ot I50.9 HEART FAILURE, UNSPECIFIED 03/11/2017 GELLENDER DO, AMANDEEP Pineda Ot J18.9 PNEUMONIA, UNSPECIFIED ORGANISM 03/11/2017 GELLENDER DO, AMANDEEP Pineda Ot J44.1 CHRONIC OBSTRUCTIVE PULMONARY DISEASE W 03/11/2017 GELLENDER DO, AMANDEEP Pineda Ot J96.20 ACUTE AND CHR RESP FAILURE, UNSP W HYPOX 03/11/2017 GELLENDER DO, AMANDEEP Pineda Ot N39.0 URINARY TRACT INFECTION, SITE NOT SPECIF 03/11/2017 GELLENDER DO, AMANDEEP Pineda Ot Z99.81 DEPENDENCE ON SUPPLEMENTAL OXYGEN 03/12/2017 GELLENDER DO, AMANDEEP Pineda Ot A41.9 SEPSIS, UNSPECIFIED ORGANISM 03/12/2017 GELLENDER DO, AMANDEEP Pineda Ot E83.42 HYPOMAGNESEMIA 03/12/2017 GELLENDER DO, AMANDEEP Pineda Ot F17.210 NICOTINE DEPENDENCE, CIGARETTES, UNCOMPL 03/12/2017 GELLENDER DO, AMANDEEP Pineda Ot G40.909 EPILEPSY, UNSP, NOT INTRACTABLE, WITHOUT 03/12/2017 GELLENDER DO, AMANDEEP Pineda Ot I50.9 HEART FAILURE, UNSPECIFIED 03/12/2017 GELLENDER DO, AMANDEEP Pineda Ot J18.9 PNEUMONIA, UNSPECIFIED ORGANISM 03/12/2017 GELLENDER DO, AMANDEEP Pineda Ot J44.1 CHRONIC OBSTRUCTIVE PULMONARY DISEASE W 03/12/2017 GELLENDER DO, AMANDEEP Pineda Ot J96.20 ACUTE AND CHR RESP FAILURE, UNSP W HYPOX 03/12/2017 GELLENDER DO, AMANDEEP Pineda Ot N39.0 URINARY TRACT INFECTION, SITE NOT SPECIF 03/12/2017 GELLENDER DO, AMANDEEP Pineda Ot Z99.81 DEPENDENCE ON SUPPLEMENTAL OXYGEN 03/13/2017 GELLENDER DO, AMANDEEP Pineda Ot A41.9 SEPSIS, UNSPECIFIED ORGANISM 03/13/2017 GELLENDER DO, AMANDEEP Pineda Ot E83.42 HYPOMAGNESEMIA 03/13/2017 GELLENDER DO, AMANDEEP Pineda Ot F17.210 NICOTINE DEPENDENCE, CIGARETTES, UNCOMPL 03/13/2017 GELLENDER DO, AMANDEEP Pineda Ot G40.909 EPILEPSY, UNSP, NOT INTRACTABLE, WITHOUT 03/13/2017 GELLENDER DO, AMANDEEP Pineda Ot I50.9 HEART FAILURE, UNSPECIFIED 03/13/2017 GELLENDER DO, AMANDEEP Pineda Ot J18.9 PNEUMONIA, UNSPECIFIED ORGANISM 03/13/2017 GELLENDER DO, AMANDEEP Pienda Ot J44.1 CHRONIC OBSTRUCTIVE PULMONARY DISEASE W 03/13/2017 GELLENDER DO, AMANDEEP Pineda Ot J96.20 ACUTE AND CHR RESP FAILURE, UNSP W HYPOX 03/13/2017 GELLENDER DO, AMANDEEP Pineda Ot N39.0 URINARY TRACT INFECTION, SITE NOT SPECIF 03/13/2017 GELLENDER DO, AMANDEEP Pineda Ot Z99.81 DEPENDENCE ON SUPPLEMENTAL OXYGEN 03/13/2017 GELLENDER DO, AMANDEEP Pineda Ot A41.9 SEPSIS, UNSPECIFIED ORGANISM 03/13/2017 GELLENDER DO, AMANDEEP Pineda Ot E83.42 HYPOMAGNESEMIA 03/13/2017 GELLENDER DO, AMANDEEP Pineda Ot F17.210 NICOTINE DEPENDENCE, CIGARETTES, UNCOMPL 03/13/2017 GELLENDER DO, AMANDEEP Pineda Ot G40.909 EPILEPSY, UNSP, NOT INTRACTABLE, WITHOUT 03/13/2017 GELLENDER DO, AMANDEEP Pineda Ot I50.9 HEART FAILURE, UNSPECIFIED 03/13/2017 GELLENDER DO, AMANDEEP Pineda Ot J18.9 PNEUMONIA, UNSPECIFIED ORGANISM 03/13/2017 GELLENDER DO, AMANDEEP Pineda Ot J44.1 CHRONIC OBSTRUCTIVE PULMONARY DISEASE W 03/13/2017 GELLENDER DO, AMANDEEP Pineda Ot J96.20 ACUTE AND CHR RESP FAILURE, UNSP W HYPOX 03/13/2017 GELLENDER DO, AMANDEEP Pineda Ot N39.0 URINARY TRACT INFECTION, SITE NOT SPECIF 03/13/2017 GELLENDER DO, AMANDEEP Pineda Ot Z99.81 DEPENDENCE ON SUPPLEMENTAL OXYGEN 03/14/2017 GELLENDER DO, AMANDEEP Pineda Ot A41.9 SEPSIS, UNSPECIFIED ORGANISM 03/14/2017 GELLENDER DO, AMANDEEP Pineda Ot E83.42 HYPOMAGNESEMIA 03/14/2017 GELLENDER DO, AMANDEEP Pineda Ot F17.210 NICOTINE DEPENDENCE, CIGARETTES, UNCOMPL 03/14/2017 GELLENDER DO, AMANDEEP Pineda Ot G40.909 EPILEPSY, UNSP, NOT INTRACTABLE, WITHOUT 03/14/2017 GELLENDER DO, AMANDEPE Pineda Ot I50.9 HEART FAILURE, UNSPECIFIED 03/14/2017 GELLENDER DO, AMANDEEP Pineda Ot J18.9 PNEUMONIA, UNSPECIFIED ORGANISM 03/14/2017 GELLENDER DO, AMANDEEP Pineda Ot J44.1 CHRONIC OBSTRUCTIVE PULMONARY DISEASE W 03/14/2017 GELLENDER DO, AMANDEEP Pineda Ot J96.20 ACUTE AND CHR RESP FAILURE, UNSP W HYPOX 03/14/2017 GELLENDER DO, AMANDEEP Pineda Ot N39.0 URINARY TRACT INFECTION, SITE NOT SPECIF 03/14/2017 GELLENDER DO, AMANDEEP Pineda Ot Z99.81 DEPENDENCE ON SUPPLEMENTAL OXYGEN 03/14/2017 GELLENDER DO, AMANDEEP Pineda Ot A41.9 SEPSIS, UNSPECIFIED ORGANISM 03/14/2017 GELLENDER DO, AMANDEEP Pineda Ot E83.42 HYPOMAGNESEMIA 03/14/2017 GELLENDER DO, AMANDEEP Pineda Ot F17.210 NICOTINE DEPENDENCE, CIGARETTES, UNCOMPL 03/14/2017 GELLENDER DO, AMANDEEP Miriam Ot G40.909 EPILEPSY, UNSP, NOT INTRACTABLE, WITHOUT 03/14/2017 GELLENDER DO, AMANDEEP Pineda Ot I50.9 HEART FAILURE, UNSPECIFIED 03/14/2017 GELLENDER DO, AMANDEEP Pineda Ot J18.9 PNEUMONIA, UNSPECIFIED ORGANISM 03/14/2017 GELLENDER DO, AMANDEEP Pineda Ot J44.1 CHRONIC OBSTRUCTIVE PULMONARY DISEASE W 03/14/2017 GELLENDER DO, AMANDEEP Pineda Ot J96.20 ACUTE AND CHR RESP FAILURE, UNSP W HYPOX 03/14/2017 AMANDEEP GENAO DO Miriam Ot N39.0 URINARY TRACT INFECTION, SITE NOT SPECIF 03/14/2017 AMANDEEP GENAO DO Ot Z99.81 DEPENDENCE ON SUPPLEMENTAL OXYGEN Procedures Code Description [place] [address] OXIMETRY 08/19/2012 [id number] OXIMETRY 12/10/2013 [id number] RESPIRATORY VENTILATION, 24-96 CONSECUTI 03/09/2017 Results Test Result Range Complete blood count (CBC) with automated white blood cell (WBC) differential - 11/20/15 07:30 Blood leukocytes automated count (number/volume) 4.6 10*3/uL 4.3-11.0 Blood erythrocytes automated count (number/volume) 4.62 10*6/uL 4.35-5.85 Venous blood hemoglobin measurement (mass/volume) 14.4 g/dL 13.3-17.7 Blood hematocrit (volume fraction) 41 % 40-54 Automated erythrocyte mean corpuscular volume 89 [foz_us] 80-99 Automated erythrocyte mean corpuscular hemoglobin (mass per erythrocyte) 31 pg 25-34 Automated erythrocyte mean corpuscular hemoglobin concentration measurement ( mass/volume) 35 g/dL 32-36 Automated erythrocyte distribution width ratio 14.8 % 10.0-14.5 Automated blood platelet count (count/volume) 180 10*3/uL 130-400 Automated blood platelet mean volume measurement 9.5 [foz_us] 7.4-10.4 Automated blood neutrophils/100 leukocytes 52 % 42-75 Automated blood lymphocytes/100 leukocytes 25 % 12-44 Blood monocytes/100 leukocytes 22 % 0-12 Automated blood eosinophils/100 leukocytes 0 % 0-10 Automated blood basophils/100 leukocytes 1 % 0-10 Blood neutrophils automated count (number/volume) 2.4 10*3 1.8-7.8 Blood lymphocytes automated count (number/volume) 1.1 10*3 1.0-4.0 Blood monocytes automated count (number/volume) 1.0 10*3 0.0-1.0 Automated eosinophil count 0.0 10*3/uL 0.0-0.3 Automated blood basophil count (count/volume) 0.0 10*3/uL 0.0-0.1 Blood manual differential performed detection - 11/20/15 07:30 Blood monocytes/100 leukocytes 31 % NR Manual blood segmented neutrophils/100 leukocytes 46 % NRG Blood band neutrophils/100 leukocytes 0 % NR Manual blood lymphocytes/100 leukocytes 23 % NRG Manual eosinophils/100 leukocytes in nose 0 % NRG Manual blood basophils/100 leukocytes 0 % NR Blood erythrocyte morphology finding identification NORMAL [facility] Comprehensive metabolic panel - 11/20/15 07:30 Serum or plasma sodium measurement (moles/volume) 131 mmol/L 135-145 Serum or plasma potassium measurement (moles/volume) 4.1 mmol/L 3.6-5.0 Serum or plasma chloride measurement (moles/volume) 97 mmol/L 98-107 Carbon dioxide 25 mmol/L 21-32 Serum or plasma anion gap determination (moles/volume) 9 mmol/L 5-14 Serum or plasma urea nitrogen measurement (mass/volume) 6 mg/dL 7-18 Serum or plasma creatinine measurement (mass/volume) 0.71 mg/dL 0.60-1.30 Serum or plasma urea nitrogen/creatinine mass ratio 8 NRG Serum or plasma creatinine measurement with calculation of estimated glomerular filtration rate > NRG Serum or plasma glucose measurement (mass/volume) 106 mg/dL 70-105 Serum or plasma calcium measurement (mass/volume) 8.7 mg/dL 8.5-10.1 Serum or plasma total bilirubin measurement (mass/volume) 0.2 mg/dL 0.1-1.0 Serum or plasma alkaline phosphatase measurement (enzymatic activity/volume) 138 U/L 40-136 Serum or plasma aspartate aminotransferase measurement (enzymatic activity/ volume) 14 U/L 5-34 Serum or plasma alanine aminotransferase measurement (enzymatic activity/volume ) 9 U/L 0-55 Serum or plasma protein measurement (mass/volume) 6.4 g/dL 6.4-8.2 Serum or plasma albumin measurement (mass/volume) 4.0 g/dL 3.2-4.5 Serum or plasma creatine kinase measurement (enzymatic activity/volume) - 11/19 07:30 Serum or plasma creatine kinase measurement (enzymatic activity/volume) 66 U/L 30-200 Ammonia - 11/20/15 07:30 Ammonia 31 umol/L 11-32 Serum or plasma C reactive protein measurement (mass/volume) - 11/20/15 07:30 Serum or plasma C reactive protein measurement (mass/volume) 1.09 mg /dL 0.00-0.50 Serum or plasma salicylates measurement (mass/volume) - 11/20/15 07:30 Serum or plasma salicylates measurement (mass/volume) < mg/dL 5.0-20.0 Serum or plasma acetaminophen measurement (mass/volume) - 11/20/15 07:30 Serum or plasma acetaminophen measurement (mass/volume) < ug/mL 10-30 Serum or plasma ethanol measurement (mass/volume) - 11/20/15 07:30 Serum or plasma ethanol measurement (mass/volume) < mg/dL <10 Blood lactic acid measurement (moles/volume) - 11/20/15 07:42 Blood lactic acid measurement (moles/volume) 0.9 mmol/L 0.5-2.0 Serum or plasma phenytoin measurement (mass/volume) - 11/20/15 07:42 Serum or plasma phenytoin measurement (mass/volume) 13.3 ug/mL 10.0-20.0 Serum or plasma carbamazepine measurement (mass/volume) - 11/20/15 07:42 Serum or plasma carbamazepine measurement (mass/volume) 9.8 ug/mL 4.0-12.0 Arterial blood gas measurement - 11/20/15 07:45 Blood pCO2 48 mm[Hg] 35-45 Blood pO2 59 mm[Hg] 79-93 Arterial blood bicarbonate measurement (moles/volume) 28 mmol/L 23-27 Arterial blood base excess by calculation 2.1 mmol/L -2.5 -2.5 Arterial blood oxygen saturation measurement 92 % 94-100 * Inhaled oxygen flow rate RA NRG Arterial blood pH measurement with patient temperature correction 7.38 7.37-7.43 Arterial blood carbon dioxide, total measurement (moles/volume) 29.7 mmol/L 21.0-31.0 Body site unk NRG Assessment of wrist artery patency prior to arterial puncture YES- POS NRG Setting of ventilation mode NO NRG Measurement of body temperature 97.3 NRG Lamotrigine level - 11/20/15 08:05 Lamotrigine level 3.7 ug/mL 4.0-18.0 Complete urinalysis with reflex to culture - 11/20/15 08:45 Urine color determination YELLOW NRG Urine clarity determination CLEAR NRG Urine pH measurement by test strip 7 5-9 Specific gravity of urine by test strip 1.010 1.016- 1.022 Urine protein assay by test strip, semi-quantitative NEGATIVE NEGATIVE Urine glucose detection by automated test strip NEGATIVE NEGATIVE Erythrocytes detection in urine sediment by light microscopy NEGATIVE NEGATIVE Urine ketones detection by automated test strip NEGATIVE NEGATIVE Urine nitrite detection by test strip NEGATIVE NEGATIVE Urine total bilirubin detection by test strip NEGATIVE NEGATIVE Urine urobilinogen measurement by automated test strip (mass/volume) NORMAL NORMAL Urine leukocyte esterase detection by dipstick 1+ NEGATIVE Automated urine sediment erythrocyte count by microscopy (number/high power field) NONE NRG Automated urine sediment leukocyte count by microscopy (number/high power field ) RARE NRG Bacteria detection in urine sediment by light microscopy NEGATIVE NRG Squamous epithelial cells detection in urine sediment by light microscopy 0-2 NRG Crystals detection in urine sediment by light microscopy NONE NRG Casts detection in urine sediment by light microscopy NONE NRG Mucus detection in urine sediment by light microscopy SMALL NRG Complete urinalysis with reflex to culture NO NRG Urine drug screening test - 11/20/15 08:45 Urine acetaminophen detection by screening method NEGATIVE NEGATIVE Urine phencyclidine detection by screening method NEGATIVE NEGATIVE Urine benzodiazepines detection by screening method NEGATIVE NEGATIVE Urine cocaine detection NEGATIVE NEGATIVE Urine amphetamines detection by screening method NEGATIVE NEGATIVE Urine methamphetamine detection by screening method NEGATIVE NEGATIVE Urine cannabinoids detection by screening method NEGATIVE NEGATIVE Urine opiates detection by screening method NEGATIVE NEGATIVE Urine barbiturates detection NEGATIVE NEGATIVE Screening urine tricyclic antidepressants detection POSITIVE NEGATIVE Urine methadone detection by screening method NEGATIVE NEGATIVE Serum or plasma phenytoin measurement (mass/volume) - 12/13/15 16:25 Serum or plasma phenytoin measurement (mass/volume) 11.0 ug/mL 10.0-20.0 Serum or plasma carbamazepine measurement (mass/volume) - 12/13/15 16:25 Serum or plasma carbamazepine measurement (mass/volume) 5.2 ug/mL 4.0-12.0 Complete blood count (CBC) with automated white blood cell (WBC) differential - 02/21/16 09:49 Blood leukocytes automated count (number/volume) 6.3 10*3/uL 4.3-11.0 Blood erythrocytes automated count (number/volume) 4.38 10*6/uL 4.35-5.85 Venous blood hemoglobin measurement (mass/volume) 13.5 g/dL 13.3-17.7 Blood hematocrit (volume fraction) 39 % 40-54 Automated erythrocyte mean corpuscular volume 88 [foz_us] 80-99 Automated erythrocyte mean corpuscular hemoglobin (mass per erythrocyte) 31 pg 25-34 Automated erythrocyte mean corpuscular hemoglobin concentration measurement ( mass/volume) 35 g/dL 32-36 Automated erythrocyte distribution width ratio 15.5 % 10.0-14.5 Automated blood platelet count (count/volume) 204 10*3/uL 130-400 Automated blood platelet mean volume measurement 9.2 [foz_us] 7.4-10.4 Automated blood neutrophils/100 leukocytes 71 % 42-75 Automated blood lymphocytes/100 leukocytes 20 % 12-44 Blood monocytes/100 leukocytes 9 % 0-12 Automated blood eosinophils/100 leukocytes 0 % 0-10 Automated blood basophils/100 leukocytes 1 % 0-10 Blood neutrophils automated count (number/volume) 4.5 10*3 1.8-7.8 Blood lymphocytes automated count (number/volume) 1.2 10*3 1.0-4.0 Blood monocytes automated count (number/volume) 0.6 10*3 0.0-1.0 Automated eosinophil count 0.0 10*3/uL 0.0-0.3 Automated blood basophil count (count/volume) 0.0 10*3/uL 0.0-0.1 Comprehensive metabolic panel - 02/21/16 09:49 Serum or plasma sodium measurement (moles/volume) 134 mmol/L 135-145 Serum or plasma potassium measurement (moles/volume) 4.4 mmol/L 3.6-5.0 Serum or plasma chloride measurement (moles/volume) 101 mmol/L 98-107 Carbon dioxide 25 mmol/L 21-32 Serum or plasma anion gap determination (moles/volume) 8 mmol/L 5-14 Serum or plasma urea nitrogen measurement (mass/volume) 12 mg/dL 7-18 Serum or plasma creatinine measurement (mass/volume) 0.75 mg/dL 0.60-1.30 Serum or plasma urea nitrogen/creatinine mass ratio 16 NRG Serum or plasma creatinine measurement with calculation of estimated glomerular filtration rate > NRG Serum or plasma glucose measurement (mass/volume) 96 mg/dL 70-105 Serum or plasma calcium measurement (mass/volume) 8.8 mg/dL 8.5-10.1 Serum or plasma total bilirubin measurement (mass/volume) 0.3 mg/dL 0.1-1.0 Serum or plasma alkaline phosphatase measurement (enzymatic activity/volume) 134 U/L 40-136 Serum or plasma aspartate aminotransferase measurement (enzymatic activity/ volume) 12 U/L 5-34 Serum or plasma alanine aminotransferase measurement (enzymatic activity/volume ) 6 U/L 0-55 Serum or plasma protein measurement (mass/volume) 6.5 g/dL 6.4-8.2 Serum or plasma albumin measurement (mass/volume) 4.1 g/dL 3.2-4.5 THYROID STIMULATING HORMONE - 02/21/16 09:49 THYROID STIMULATING HORMONE 0.72 u[iU]/mL 0.35-4.94 Automated blood complete blood count (hemogram) panel - 08/20/16 11:11 Blood leukocytes automated count (number/volume) 5.7 10*3/uL 4.3-11.0 Blood erythrocytes automated count (number/volume) 4.47 10*6/uL 4.35-5.85 Venous blood hemoglobin measurement (mass/volume) 13.6 g/dL 13.3-17.7 Blood hematocrit (volume fraction) 40 % 40-54 Automated erythrocyte mean corpuscular volume 90 [foz_us] 80-99 Automated erythrocyte mean corpuscular hemoglobin (mass per erythrocyte) 30 pg 25-34 Automated erythrocyte mean corpuscular hemoglobin concentration measurement ( mass/volume) 34 g/dL 32-36 Automated erythrocyte distribution width ratio 14.9 % 10.0-14.5 Automated blood platelet count (count/volume) 194 10*3/uL 130-400 Automated blood platelet mean volume measurement 9.5 [foz_us] 7.4-10.4 Comprehensive metabolic panel - 08/20/16 11:11 Serum or plasma sodium measurement (moles/volume) 130 mmol/L 135-145 Serum or plasma potassium measurement (moles/volume) 4.7 mmol/L 3.6-5.0 Serum or plasma chloride measurement (moles/volume) 95 mmol/L 98-107 Carbon dioxide 28 mmol/L 21-32 Serum or plasma anion gap determination (moles/volume) 7 mmol/L 5-14 Serum or plasma urea nitrogen measurement (mass/volume) 11 mg/dL 7-18 Serum or plasma creatinine measurement (mass/volume) 0.73 mg/dL 0.60-1.30 Serum or plasma urea nitrogen/creatinine mass ratio 15 NRG Serum or plasma creatinine measurement with calculation of estimated glomerular filtration rate > NRG Serum or plasma glucose measurement (mass/volume) 96 mg/dL 70-105 Serum or plasma calcium measurement (mass/volume) 8.9 mg/dL 8.5-10.1 Serum or plasma total bilirubin measurement (mass/volume) 0.3 mg/dL 0.1-1.0 Serum or plasma alkaline phosphatase measurement (enzymatic activity/volume) 136 U/L 40-136 Serum or plasma aspartate aminotransferase measurement (enzymatic activity/ volume) 13 U/L 5-34 Serum or plasma alanine aminotransferase measurement (enzymatic activity/volume ) 9 U/L 0-55 Serum or plasma protein measurement (mass/volume) 7.0 g/dL 6.4-8.2 Serum or plasma albumin measurement (mass/volume) 4.0 g/dL 3.2-4.5 Lipid 1996 panel - 08/20/16 11:11 Serum or plasma triglyceride measurement (mass/volume) 63 mg/dL <150 Serum or plasma cholesterol measurement (mass/volume) 277 mg/dL < 200 Serum or plasma cholesterol in HDL measurement (mass/volume) 69 mg/ dL 40-60 Cholesterol in LDL [mass/volume] in serum or plasma by direct assay 170 mg/dL 1-129 Serum or plasma cholesterol in VLDL measurement (mass/volume) 13 mg/ dL 5-40 Serum or plasma phenytoin measurement (mass/volume) - 08/20/16 11:11 Serum or plasma phenytoin measurement (mass/volume) 8.6 ug/mL 10.0-20.0 Serum or plasma carbamazepine measurement (mass/volume) - 08/20/16 11:11 Serum or plasma carbamazepine measurement (mass/volume) 8.4 ug/mL 4.0-12.0 Whole blood basic metabolic panel - 09/10/16 13:45 Serum or plasma sodium measurement (moles/volume) 132 mmol/L 135-145 Serum or plasma potassium measurement (moles/volume) 4.5 mmol/L 3.6-5.0 Serum or plasma chloride measurement (moles/volume) 95 mmol/L 98-107 Carbon dioxide 27 mmol/L 21-32 Serum or plasma anion gap determination (moles/volume) 10 mmol/L 5-14 Serum or plasma urea nitrogen measurement (mass/volume) 8 mg/dL 7-18 Serum or plasma creatinine measurement (mass/volume) 0.74 mg/dL 0.60-1.30 Serum or plasma urea nitrogen/creatinine mass ratio 11 0 -20 Serum or plasma creatinine measurement with calculation of estimated glomerular filtration rate > NRG Serum or plasma glucose measurement (mass/volume) 92 mg/dL 70-105 Serum or plasma calcium measurement (mass/volume) 9.4 mg/dL 8.5-10.1 Complete blood count (CBC) with automated white blood cell (WBC) differential - 12/19/16 12:37 Blood leukocytes automated count (number/volume) 9.7 10*3/uL 4.3-11.0 Blood erythrocytes automated count (number/volume) 4.41 10*6/uL 4.35-5.85 Venous blood hemoglobin measurement (mass/volume) 13.8 g/dL 13.3-17.7 Blood hematocrit (volume fraction) 41 % 40-54 Automated erythrocyte mean corpuscular volume 92 [foz_us] 80-99 Automated erythrocyte mean corpuscular hemoglobin (mass per erythrocyte) 31 pg 25-34 Automated erythrocyte mean corpuscular hemoglobin concentration measurement ( mass/volume) 34 g/dL 32-36 Automated erythrocyte distribution width ratio 15.0 % 10.0-14.5 Automated blood platelet count (count/volume) 239 10*3/uL 130-400 Automated blood platelet mean volume measurement 9.1 [foz_us] 7.4-10.4 Automated blood neutrophils/100 leukocytes 83 % 42-75 Automated blood lymphocytes/100 leukocytes 9 % 12-44 Blood monocytes/100 leukocytes 8 % 0-12 Automated blood eosinophils/100 leukocytes 0 % 0-10 Automated blood basophils/100 leukocytes 0 % 0-10 Blood neutrophils automated count (number/volume) 8.1 10*3 1.8-7.8 Blood lymphocytes automated count (number/volume) 0.9 10*3 1.0-4.0 Blood monocytes automated count (number/volume) 0.8 10*3 0.0-1.0 Automated eosinophil count 0.0 10*3/uL 0.0-0.3 Automated blood basophil count (count/volume) 0.0 10*3/uL 0.0-0.1 Automated blood complete blood count (hemogram) panel - 01/14/17 13:06 Blood leukocytes automated count (number/volume) 10.1 10*3/uL 4.3-11.0 Blood erythrocytes automated count (number/volume) 4.50 10*6/uL 4.35-5.85 Venous blood hemoglobin measurement (mass/volume) 13.9 g/dL 13.3-17.7 Blood hematocrit (volume fraction) 41 % 40-54 Automated erythrocyte mean corpuscular volume 92 [foz_us] 80-99 Automated erythrocyte mean corpuscular hemoglobin (mass per erythrocyte) 31 pg 25-34 Automated erythrocyte mean corpuscular hemoglobin concentration measurement ( mass/volume) 34 g/dL 32-36 Automated erythrocyte distribution width ratio 14.7 % 10.0-14.5 Automated blood platelet count (count/volume) 202 10*3/uL 130-400 Automated blood platelet mean volume measurement 9.5 [foz_us] 7.4-10.4 Comprehensive metabolic panel - 01/14/17 13:06 Serum or plasma sodium measurement (moles/volume) 131 mmol/L 135-145 Serum or plasma potassium measurement (moles/volume) 4.4 mmol/L 3.6-5.0 Serum or plasma chloride measurement (moles/volume) 90 mmol/L 98-107 Carbon dioxide 32 mmol/L 21-32 Serum or plasma anion gap determination (moles/volume) 9 mmol/L 5-14 Serum or plasma urea nitrogen measurement (mass/volume) 8 mg/dL 7-18 Serum or plasma creatinine measurement (mass/volume) 0.65 mg/dL 0.60-1.30 Serum or plasma urea nitrogen/creatinine mass ratio 12 NRG Serum or plasma creatinine measurement with calculation of estimated glomerular filtration rate > NRG Serum or plasma glucose measurement (mass/volume) 115 mg/dL 70-105 Serum or plasma calcium measurement (mass/volume) 9.2 mg/dL 8.5-10.1 Serum or plasma total bilirubin measurement (mass/volume) 0.4 mg/dL 0.1-1.0 Serum or plasma alkaline phosphatase measurement (enzymatic activity/volume) 106 U/L 40-136 Serum or plasma aspartate aminotransferase measurement (enzymatic activity/ volume) 20 U/L 5-34 Serum or plasma alanine aminotransferase measurement (enzymatic activity/volume ) 11 U/L 0-55 Serum or plasma protein measurement (mass/volume) 7.3 g/dL 6.4-8.2 Serum or plasma albumin measurement (mass/volume) 3.8 g/dL 3.2-4.5 Serum or plasma phenytoin measurement (mass/volume) - 01/14/17 13:06 Serum or plasma phenytoin measurement (mass/volume) 7.9 ug/mL 10.0-20.0 Serum or plasma carbamazepine measurement (mass/volume) - 01/14/17 13:06 Serum or plasma carbamazepine measurement (mass/volume) 5.9 ug/mL 4.0-12.0 Complete blood count (CBC) with automated white blood cell (WBC) differential - 02/04/17 15:15 Blood leukocytes automated count (number/volume) 10.3 10*3/uL 4.3-11.0 Blood erythrocytes automated count (number/volume) 4.32 10*6/uL 4.35-5.85 Venous blood hemoglobin measurement (mass/volume) 13.5 g/dL 13.3-17.7 Blood hematocrit (volume fraction) 40 % 40-54 Automated erythrocyte mean corpuscular volume 92 [foz_us] 80-99 Automated erythrocyte mean corpuscular hemoglobin (mass per erythrocyte) 31 pg 25-34 Automated erythrocyte mean corpuscular hemoglobin concentration measurement ( mass/volume) 34 g/dL 32-36 Automated erythrocyte distribution width ratio 14.6 % 10.0-14.5 Automated blood platelet count (count/volume) 259 10*3/uL 130-400 Automated blood platelet mean volume measurement 8.9 [foz_us] 7.4-10.4 Automated blood neutrophils/100 leukocytes 81 % 42-75 Automated blood lymphocytes/100 leukocytes 10 % 12-44 Blood monocytes/100 leukocytes 9 % 0-12 Automated blood eosinophils/100 leukocytes 0 % 0-10 Automated blood basophils/100 leukocytes 0 % 0-10 Blood neutrophils automated count (number/volume) 8.3 10*3 1.8-7.8 Blood lymphocytes automated count (number/volume) 1.0 10*3 1.0-4.0 Blood monocytes automated count (number/volume) 0.9 10*3 0.0-1.0 Automated eosinophil count 0.0 10*3/uL 0.0-0.3 Automated blood basophil count (count/volume) 0.0 10*3/uL 0.0-0.1 Comprehensive metabolic panel - 02/04/17 15:15 Serum or plasma sodium measurement (moles/volume) 130 mmol/L 135-145 Serum or plasma potassium measurement (moles/volume) 4.9 mmol/L 3.6-5.0 Serum or plasma chloride measurement (moles/volume) 87 mmol/L 98-107 Carbon dioxide 35 mmol/L 21-32 Serum or plasma anion gap determination (moles/volume) 8 mmol/L 5-14 Serum or plasma urea nitrogen measurement (mass/volume) 5 mg/dL 7-18 Serum or plasma creatinine measurement (mass/volume) 0.63 mg/dL 0.60-1.30 Serum or plasma urea nitrogen/creatinine mass ratio 8 NRG Serum or plasma creatinine measurement with calculation of estimated glomerular filtration rate > NRG Serum or plasma glucose measurement (mass/volume) 96 mg/dL 70-105 Serum or plasma calcium measurement (mass/volume) 9.0 mg/dL 8.5-10.1 Serum or plasma total bilirubin measurement (mass/volume) 0.3 mg/dL 0.1-1.0 Serum or plasma alkaline phosphatase measurement (enzymatic activity/volume) 156 U/L 40-136 Serum or plasma aspartate aminotransferase measurement (enzymatic activity/ volume) 14 U/L 5-34 Serum or plasma alanine aminotransferase measurement (enzymatic activity/volume ) 10 U/L 0-55 Serum or plasma protein measurement (mass/volume) 7.0 g/dL 6.4-8.2 Serum or plasma albumin measurement (mass/volume) 3.8 g/dL 3.2-4.5 Complete blood count (CBC) with automated white blood cell (WBC) differential - 02/28/17 12:27 Blood leukocytes automated count (number/volume) 15.6 10*3/uL 4.3-11.0 Blood erythrocytes automated count (number/volume) 3.98 10*6/uL 4.35-5.85 Venous blood hemoglobin measurement (mass/volume) 12.2 g/dL 13.3-17.7 Blood hematocrit (volume fraction) 37 % 40-54 Automated erythrocyte mean corpuscular volume 92 [foz_us] 80-99 Automated erythrocyte mean corpuscular hemoglobin (mass per erythrocyte) 31 pg 25-34 Automated erythrocyte mean corpuscular hemoglobin concentration measurement ( mass/volume) 33 g/dL 32-36 Automated erythrocyte distribution width ratio 14.4 % 10.0-14.5 Automated blood platelet count (count/volume) 237 10*3/uL 130-400 Automated blood platelet mean volume measurement 9.1 [foz_us] 7.4-10.4 Automated blood neutrophils/100 leukocytes 87 % 42-75 Automated blood lymphocytes/100 leukocytes 5 % 12-44 Blood monocytes/100 leukocytes 8 % 0-12 Automated blood eosinophils/100 leukocytes 0 % 0-10 Automated blood basophils/100 leukocytes 0 % 0-10 Blood neutrophils automated count (number/volume) 13.6 10*3 1.8-7.8 Blood lymphocytes automated count (number/volume) 0.7 10*3 1.0-4.0 Blood monocytes automated count (number/volume) 1.3 10*3 0.0-1.0 Automated eosinophil count 0.0 10*3/uL 0.0-0.3 Automated blood basophil count (count/volume) 0.0 10*3/uL 0.0-0.1 Arterial blood gas measurement - 02/28/17 12:27 Blood pCO2 66 mm[Hg] 35-45 Blood pO2 90 mm[Hg] 79-93 Arterial blood bicarbonate measurement (moles/volume) 37 mmol/L 23-27 Arterial blood base excess by calculation 11.2 mmol/L - 2.5-2.5 Arterial blood oxygen saturation measurement 98 % 94-100 * Inhaled oxygen flow rate 3 NRG Arterial blood pH measurement with patient temperature correction 7.37 7.37-7.43 Arterial blood carbon dioxide, total measurement (moles/volume) 38.9 mmol/L 21.0-31.0 Body site R RAD NRG Assessment of wrist artery patency prior to arterial puncture YES- POS NRG Setting of ventilation mode NO NRG Measurement of body temperature 98.8 NRG Comprehensive metabolic panel - 02/28/17 12:27 Serum or plasma sodium measurement (moles/volume) 133 mmol/L 135-145 Serum or plasma potassium measurement (moles/volume) 4.4 mmol/L 3.6-5.0 Serum or plasma chloride measurement (moles/volume) 89 mmol/L 98-107 Carbon dioxide 36 mmol/L 21-32 Serum or plasma anion gap determination (moles/volume) 8 mmol/L 5-14 Serum or plasma urea nitrogen measurement (mass/volume) 9 mg/dL 7-18 Serum or plasma creatinine measurement (mass/volume) 0.64 mg/dL 0.60-1.30 Serum or plasma urea nitrogen/creatinine mass ratio 14 NRG Serum or plasma creatinine measurement with calculation of estimated glomerular filtration rate > NRG Serum or plasma glucose measurement (mass/volume) 113 mg/dL 70-105 Serum or plasma calcium measurement (mass/volume) 9.2 mg/dL 8.5-10.1 Serum or plasma total bilirubin measurement (mass/volume) 0.3 mg/dL 0.1-1.0 Serum or plasma alkaline phosphatase measurement (enzymatic activity/volume) 133 U/L 40-136 Serum or plasma aspartate aminotransferase measurement (enzymatic activity/ volume) 10 U/L 5-34 Serum or plasma alanine aminotransferase measurement (enzymatic activity/volume ) 8 U/L 0-55 Serum or plasma protein measurement (mass/volume) 7.4 g/dL 6.4-8.2 Serum or plasma albumin measurement (mass/volume) 3.8 g/dL 3.2-4.5 Blood manual differential performed detection - 02/28/17 12:27 Blood monocytes/100 leukocytes 8 % NRG Manual blood segmented neutrophils/100 leukocytes 88 % NRG Blood band neutrophils/100 leukocytes 0 % NRG Manual blood lymphocytes/100 leukocytes 4 % NRG Manual eosinophils/100 leukocytes in nose 0 % NRG Manual blood basophils/100 leukocytes 0 % NRG Blood erythrocyte morphology finding identification NORMAL NRG Serum or plasma lithium measurement (moles/volume) - 02/28/17 12:27 BNP level 60.4 pg/mL <100.0 Blood lactic acid measurement (moles/volume) - 02/28/17 13:52 Blood lactic acid measurement (moles/volume) 1.38 mmol/L 0.50-2.00 Bacterial blood culture - 02/28/17 13:52 Bacterial blood culture NG NR Bacterial blood culture - 02/28/17 14:14 Bacterial blood culture NG [facility] Complete blood count (CBC) with automated white blood cell (WBC) differential - 03/01/17 04:56 Blood leukocytes automated count (number/volume) 15.1 10*3/uL 4.3-11.0 Blood erythrocytes automated count (number/volume) 3.59 10*6/uL 4.35-5.85 Venous blood hemoglobin measurement (mass/volume) 11.1 g/dL 13.3-17.7 Blood hematocrit (volume fraction) 34 % 40-54 Automated erythrocyte mean corpuscular volume 93 [foz_us] 80-99 Automated erythrocyte mean corpuscular hemoglobin (mass per erythrocyte) 31 pg 25-34 Automated erythrocyte mean corpuscular hemoglobin concentration measurement ( mass/volume) 33 g/dL 32-36 Automated erythrocyte distribution width ratio 14.2 % 10.0-14.5 Automated blood platelet count (count/volume) 203 10*3/uL 130-400 Automated blood platelet mean volume measurement 9.6 [foz_us] 7.4-10.4 Automated blood neutrophils/100 leukocytes 86 % 42-75 Automated blood lymphocytes/100 leukocytes 5 % 12-44 Blood monocytes/100 leukocytes 9 % 0-12 Automated blood eosinophils/100 leukocytes 0 % 0-10 Automated blood basophils/100 leukocytes 0 % 0-10 Blood neutrophils automated count (number/volume) 13.0 10*3 1.8-7.8 Blood lymphocytes automated count (number/volume) 0.8 10*3 1.0-4.0 Blood monocytes automated count (number/volume) 1.3 10*3 0.0-1.0 Automated eosinophil count 0.0 10*3/uL 0.0-0.3 Automated blood basophil count (count/volume) 0.0 10*3/uL 0.0-0.1 Complete blood count (CBC) with automated white blood cell (WBC) differential - 03/03/17 05:45 Blood leukocytes automated count (number/volume) 8.0 10*3/uL 4.3-11.0 Blood erythrocytes automated count (number/volume) 3.54 10*6/uL 4.35-5.85 Venous blood hemoglobin measurement (mass/volume) 10.7 g/dL 13.3-17.7 Blood hematocrit (volume fraction) 32 % 40-54 Automated erythrocyte mean corpuscular volume 91 [foz_us] 80-99 Automated erythrocyte mean corpuscular hemoglobin (mass per erythrocyte) 30 pg 25-34 Automated erythrocyte mean corpuscular hemoglobin concentration measurement ( mass/volume) 33 g/dL 32-36 Automated erythrocyte distribution width ratio 14.3 % 10.0-14.5 Automated blood platelet count (count/volume) 241 10*3/uL 130-400 Automated blood platelet mean volume measurement 9.3 [foz_us] 7.4-10.4 Automated blood neutrophils/100 leukocytes 82 % 42-75 Automated blood lymphocytes/100 leukocytes 9 % 12-44 Blood monocytes/100 leukocytes 9 % 0-12 Automated blood eosinophils/100 leukocytes 0 % 0-10 Automated blood basophils/100 leukocytes 0 % 0-10 Blood neutrophils automated count (number/volume) 6.5 10*3 1.8-7.8 Blood lymphocytes automated count (number/volume) 0.8 10*3 1.0-4.0 Blood monocytes automated count (number/volume) 0.7 10*3 0.0-1.0 Automated eosinophil count 0.0 10*3/uL 0.0-0.3 Automated blood basophil count (count/volume) 0.0 10*3/uL 0.0-0.1 Whole blood basic metabolic panel - 03/03/17 05:45 Serum or plasma sodium measurement (moles/volume) 134 mmol/L 135-145 Serum or plasma potassium measurement (moles/volume) 4.5 mmol/L 3.6-5.0 Serum or plasma chloride measurement (moles/volume) 94 mmol/L 98-107 Carbon dioxide 32 mmol/L 21-32 Serum or plasma anion gap determination (moles/volume) 8 mmol/L 5-14 Serum or plasma urea nitrogen measurement (mass/volume) 11 mg/dL 7-18 Serum or plasma creatinine measurement (mass/volume) 0.56 mg/dL 0.60-1.30 Serum or plasma urea nitrogen/creatinine mass ratio 20 NRG Serum or plasma creatinine measurement with calculation of estimated glomerular filtration rate > NRG Serum or plasma glucose measurement (mass/volume) 104 mg/dL 70-105 Serum or plasma calcium measurement (mass/volume) 8.7 mg/dL 8.5-10.1 Complete blood count (CBC) with automated white blood cell (WBC) differential - 03/09/17 16:10 Blood leukocytes automated count (number/volume) 30.5 10*3/uL 4.3-11.0 Blood erythrocytes automated count (number/volume) 4.30 10*6/uL 4.35-5.85 Venous blood hemoglobin measurement (mass/volume) 12.9 g/dL 13.3-17.7 Blood hematocrit (volume fraction) 40 % 40-54 Automated erythrocyte mean corpuscular volume 93 [foz_us] 80-99 Automated erythrocyte mean corpuscular hemoglobin (mass per erythrocyte) 30 pg 25-34 Automated erythrocyte mean corpuscular hemoglobin concentration measurement ( mass/volume) 32 g/dL 32-36 Automated erythrocyte distribution width ratio 14.9 % 10.0-14.5 Automated blood platelet count (count/volume) 292 10*3/uL 130-400 Automated blood platelet mean volume measurement 10.7 [foz_us] 7.4-10.4 Automated blood neutrophils/100 leukocytes 88 % 42-75 Automated blood lymphocytes/100 leukocytes 4 % 12-44 Blood monocytes/100 leukocytes 7 % 0-12 Automated blood eosinophils/100 leukocytes 1 % 0-10 Automated blood basophils/100 leukocytes 0 % 0-10 Blood neutrophils automated count (number/volume) 26.8 10*3 1.8-7.8 Blood lymphocytes automated count (number/volume) 1.1 10*3 1.0-4.0 Blood monocytes automated count (number/volume) 2.3 10*3 0.0-1.0 Automated eosinophil count 0.2 10*3/uL 0.0-0.3 Automated blood basophil count (count/volume) 0.1 10*3/uL 0.0-0.1 Blood manual differential performed detection - 03/09/17 16:10 Blood monocytes/100 leukocytes 8 % NRG Manual blood segmented neutrophils/100 leukocytes 85 % NRG Blood band neutrophils/100 leukocytes 1 % NRG Manual blood lymphocytes/100 leukocytes 6 % NRG Blood erythrocyte morphology finding identification NORMAL NRG Blood toxic granules detection by light microscopy 1+ NRG Blood hypersegmented neutrophils detection by light microscopy SLIGHT NRG Blood lactic acid measurement (moles/volume) - 03/09/17 16:10 Blood lactic acid measurement (moles/volume) 0.87 mmol/L 0.50-2.00 Serum or plasma lithium measurement (moles/volume) - 03/09/17 16:10 BNP level 208.6 pg/mL <100.0 Bacterial blood culture - 03/09/17 16:10 FREE TEXT EXTERNAL NO FURTHER STUDIES UNLESS REQUESTED NRG QUANTITY OF GROWTH . NRG Bacterial blood culture SEE [facility] Comprehensive metabolic panel - 03/09/17 16:35 Serum or plasma sodium measurement (moles/volume) 132 mmol/L 135-145 Serum or plasma potassium measurement (moles/volume) 4.4 mmol/L 3.6-5.0 Serum or plasma chloride measurement (moles/volume) 88 mmol/L 98-107 Carbon dioxide 32 mmol/L 21-32 Serum or plasma anion gap determination (moles/volume) 12 mmol/L 5-14 Serum or plasma urea nitrogen measurement (mass/volume) 9 mg/dL 7-18 Serum or plasma creatinine measurement (mass/volume) 0.54 mg/dL 0.60-1.30 Serum or plasma urea nitrogen/creatinine mass ratio 17 NRG Serum or plasma creatinine measurement with calculation of estimated glomerular filtration rate > NRG Serum or plasma glucose measurement (mass/volume) 76 mg/dL 70-105 Serum or plasma calcium measurement (mass/volume) 8.9 mg/dL 8.5-10.1 Serum or plasma total bilirubin measurement (mass/volume) 0.5 mg/dL 0.1-1.0 Serum or plasma alkaline phosphatase measurement (enzymatic activity/volume) 133 U/L 40-136 Serum or plasma aspartate aminotransferase measurement (enzymatic activity/ volume) 11 U/L 5-34 Serum or plasma alanine aminotransferase measurement (enzymatic activity/volume ) 9 U/L 0-55 Serum or plasma protein measurement (mass/volume) 7.2 g/dL 6.4-8.2 Serum or plasma albumin measurement (mass/volume) 3.7 g/dL 3.2-4.5 Serum or plasma C reactive protein measurement (mass/volume) - 03/09/17 16:35 Serum or plasma C reactive protein measurement (mass/volume) > mg/ dL 0.00-0.50 Bacterial blood culture - 03/09/17 16:57 Bacterial blood culture NG NRG Arterial blood gas measurement - 03/09/17 17:10 Blood pCO2 67 mm[Hg] 35-45 Blood pO2 68 mm[Hg] 79-93 Arterial blood bicarbonate measurement (moles/volume) 35 mmol/L 23-27 Arterial blood base excess by calculation 8.6 mmol/L -2.5 -2.5 Arterial blood oxygen saturation measurement 95 % 94-100 * Inhaled oxygen flow rate 45% BIPAP NRG Arterial blood pH measurement with patient temperature correction 7.33 7.37-7.43 Arterial blood carbon dioxide, total measurement (moles/volume) 36.7 mmol/L 21.0-31.0 Body site RT. RADIAL NRG Assessment of wrist artery patency prior to arterial puncture POSITIVE NRG Setting of ventilation mode NO NRG Measurement of body temperature 97.5 NRG Arterial blood gas measurement - 03/09/17 19:51 Blood pCO2 78 mm[Hg] 35-45 Blood pO2 61 mm[Hg] 79-93 Arterial blood bicarbonate measurement (moles/volume) 32 mmol/L 23-27 Arterial blood base excess by calculation 5.1 mmol/L -2.5 -2.5 Arterial blood oxygen saturation measurement 91 % 94-100 * Inhaled oxygen flow rate 40% NRG Arterial blood pH measurement with patient temperature correction 7.24 7.37-7.43 Arterial blood carbon dioxide, total measurement (moles/volume) 34.6 mmol/L 21.0-31.0 Body site LEFT RADIAL NRG Assessment of wrist artery patency prior to arterial puncture POSITIVE NRG Setting of ventilation mode YES NRG Measurement of body temperature 97.9 NRG Arterial blood gas measurement - 03/09/17 21:33 Blood pCO2 66 mm[Hg] 35-45 Blood pO2 67 mm[Hg] 79-93 Arterial blood bicarbonate measurement (moles/volume) 32 mmol/L 23-27 Arterial blood base excess by calculation 5.5 mmol/L -2.5 -2.5 Arterial blood oxygen saturation measurement 95 % 94-100 * Inhaled oxygen flow rate 40% NRG Arterial blood pH measurement with patient temperature correction 7.30 7.37-7.43 Arterial blood carbon dioxide, total measurement (moles/volume) 33.7 mmol/L 21.0-31.0 Body site L RAD NRG Assessment of wrist artery patency prior to arterial puncture YES- POS NRG Setting of ventilation mode YES NRG Measurement of body temperature 97.9 NRG Complete urinalysis with reflex to culture - 03/10/17 02:55 Urine color determination Y NRG Urine clarity determination SLIGHTLY CLOUDY NRG Urine pH measurement by test strip 6 5-9 Specific gravity of urine by test strip 1.020 1.016- 1.022 Urine protein assay by test strip, semi-quantitative 2+ NEGATIVE Urine glucose detection by automated test strip NEGATIVE NEGATIVE Erythrocytes detection in urine sediment by light microscopy 3+ NEGATIVE Urine ketones detection by automated test strip 1+ NEGATIVE Urine nitrite detection by test strip NEGATIVE NEGATIVE Urine total bilirubin detection by test strip NEGATIVE NEGATIVE Urine urobilinogen measurement by automated test strip (mass/volume) NORMAL NORMAL Urine leukocyte esterase detection by dipstick 1+ NEGATIVE Automated urine sediment erythrocyte count by microscopy (number/high power field) [HPF] NRG Automated urine sediment leukocyte count by microscopy (number/high power field ) [HPF] NRG Bacteria detection in urine sediment by light microscopy TRACE NRG Squamous epithelial cells detection in urine sediment by light microscopy 2-5 NRG Crystals detection in urine sediment by light microscopy NONE NRG Casts detection in urine sediment by light microscopy NONE NRG Mucus detection in urine sediment by light microscopy NEGATIVE NRG Complete urinalysis with reflex to culture YES NRG Bacterial urine culture - 03/10/17 02:55 Bacterial urine culture NG NRG Methicillin resistant Staphylococcus aureus (MRSA) screening culture - 03:42 Methicillin resistant Staphylococcus aureus (MRSA) screening culture NEG NRG Complete blood count (CBC) with automated white blood cell (WBC) differential - 03/10/17 03:50 Blood leukocytes automated count (number/volume) 23.2 10*3/uL 4.3-11.0 Blood erythrocytes automated count (number/volume) 3.18 10*6/uL 4.35-5.85 Venous blood hemoglobin measurement (mass/volume) 9.7 g/dL 13.3-17.7 Blood hematocrit (volume fraction) 30 % 40-54 Automated erythrocyte mean corpuscular volume 94 [foz_us] 80-99 Automated erythrocyte mean corpuscular hemoglobin (mass per erythrocyte) 31 pg 25-34 Automated erythrocyte mean corpuscular hemoglobin concentration measurement ( mass/volume) 33 g/dL 32-36 Automated erythrocyte distribution width ratio 14.5 % 10.0-14.5 Automated blood platelet count (count/volume) 224 10*3/uL 130-400 Automated blood platelet mean volume measurement 9.3 [foz_us] 7.4-10.4 Automated blood neutrophils/100 leukocytes 89 % 42-75 Automated blood lymphocytes/100 leukocytes 5 % 12-44 Blood monocytes/100 leukocytes 6 % 0-12 Automated blood eosinophils/100 leukocytes 0 % 0-10 Automated blood basophils/100 leukocytes 0 % 0-10 Blood neutrophils automated count (number/volume) 20.6 10*3 1.8-7.8 Blood lymphocytes automated count (number/volume) 1.2 10*3 1.0-4.0 Blood monocytes automated count (number/volume) 1.3 10*3 0.0-1.0 Automated eosinophil count 0.0 10*3/uL 0.0-0.3 Automated blood basophil count (count/volume) 0.0 10*3/uL 0.0-0.1 Comprehensive metabolic panel - 03/10/17 03:50 Serum or plasma sodium measurement (moles/volume) 133 mmol/L 135-145 Serum or plasma potassium measurement (moles/volume) 4.1 mmol/L 3.6-5.0 Serum or plasma chloride measurement (moles/volume) 95 mmol/L 98-107 Carbon dioxide 31 mmol/L 21-32 Serum or plasma anion gap determination (moles/volume) 7 mmol/L 5-14 Serum or plasma urea nitrogen measurement (mass/volume) 10 mg/dL 7-18 Serum or plasma creatinine measurement (mass/volume) 0.58 mg/dL 0.60-1.30 Serum or plasma urea nitrogen/creatinine mass ratio 17 NRG Serum or plasma creatinine measurement with calculation of estimated glomerular filtration rate > NRG Serum or plasma glucose measurement (mass/volume) 137 mg/dL 70-105 Serum or plasma calcium measurement (mass/volume) 8.1 mg/dL 8.5-10.1 Serum or plasma total bilirubin measurement (mass/volume) 0.4 mg/dL 0.1-1.0 Serum or plasma alkaline phosphatase measurement (enzymatic activity/volume) 98 U/L 40-136 Serum or plasma aspartate aminotransferase measurement (enzymatic activity/ volume) 9 U/L 5-34 Serum or plasma alanine aminotransferase measurement (enzymatic activity/volume ) 8 U/L 0-55 Serum or plasma protein measurement (mass/volume) 5.7 g/dL 6.4-8.2 Serum or plasma albumin measurement (mass/volume) 2.9 g/dL 3.2-4.5 Serum or plasma phosphate measurement (mass/volume) - 03/10/17 03:50 Serum or plasma phosphate measurement (mass/volume) 2.3 mg/dL 2.3-4.7 Magnesium - 03/10/17 03:50 Magnesium 1.7 mg/dL 1.8-2.4 Arterial blood gas measurement - 03/10/17 04:47 Blood pCO2 60 mm[Hg] 35-45 Blood pO2 51 mm[Hg] 79-93 Arterial blood bicarbonate measurement (moles/volume) 32 mmol/L 23-27 Arterial blood base excess by calculation 6.4 mmol/L -2.5 -2.5 Arterial blood oxygen saturation measurement 88 % 94-100 * Inhaled oxygen flow rate 30% NRG Arterial blood pH measurement with patient temperature correction 7.35 7.37-7.43 Arterial blood carbon dioxide, total measurement (moles/volume) 33.9 mmol/L 21.0-31.0 Body site L RAD NRG Assessment of wrist artery patency prior to arterial puncture YES- POS NRG Setting of ventilation mode YES NRG Measurement of body temperature 97.8 NRG Capillary blood glucose measurement by glucometer (mass/volume) - 03/10/17 17: 14 Capillary blood glucose measurement by glucometer (mass/volume) 128 mg/dL 70-110 Vancomycin trough - 03/10/17 19:16 Vancomycin trough 5.4 ug/mL 10.0-20.0 Arterial blood gas measurement - 03/11/17 04:05 Blood pCO2 57 mm[Hg] 35-45 Blood pO2 105 mm[Hg] 79-93 Arterial blood bicarbonate measurement (moles/volume) 29 mmol/L 23-27 Arterial blood base excess by calculation 3.5 mmol/L -2.5 -2.5 Arterial blood oxygen saturation measurement 98 % 94-100 * Inhaled oxygen flow rate 35% NRG Arterial blood pH measurement with patient temperature correction 7.32 7.37-7.43 Arterial blood carbon dioxide, total measurement (moles/volume) 30.9 mmol/L 21.0-31.0 Body site LRAD NRG Assessment of wrist artery patency prior to arterial puncture YES- POS NRG Setting of ventilation mode YES NRG Measurement of body temperature 97.9 NRG Complete blood count (CBC) with automated white blood cell (WBC) differential - 03/11/17 04:05 Blood leukocytes automated count (number/volume) 9.0 10*3/uL 4.3-11.0 Blood erythrocytes automated count (number/volume) 2.94 10*6/uL 4.35-5.85 Venous blood hemoglobin measurement (mass/volume) 9.0 g/dL 13.3-17.7 Blood hematocrit (volume fraction) 27 % 40-54 Automated erythrocyte mean corpuscular volume 93 [foz_us] 80-99 Automated erythrocyte mean corpuscular hemoglobin (mass per erythrocyte) 31 pg 25-34 Automated erythrocyte mean corpuscular hemoglobin concentration measurement ( mass/volume) 33 g/dL 32-36 Automated erythrocyte distribution width ratio 14.9 % 10.0-14.5 Automated blood platelet count (count/volume) 188 10*3/uL 130-400 Automated blood platelet mean volume measurement 9.5 [foz_us] 7.4-10.4 Automated blood neutrophils/100 leukocytes 90 % 42-75 Automated blood lymphocytes/100 leukocytes 5 % 12-44 Blood monocytes/100 leukocytes 5 % 0-12 Automated blood eosinophils/100 leukocytes 0 % 0-10 Automated blood basophils/100 leukocytes 0 % 0-10 Blood neutrophils automated count (number/volume) 8.1 10*3 1.8-7.8 Blood lymphocytes automated count (number/volume) 0.4 10*3 1.0-4.0 Blood monocytes automated count (number/volume) 0.4 10*3 0.0-1.0 Automated eosinophil count 0.0 10*3/uL 0.0-0.3 Automated blood basophil count (count/volume) 0.0 10*3/uL 0.0-0.1 Comprehensive metabolic panel - 03/11/17 04:05 Serum or plasma sodium measurement (moles/volume) 139 mmol/L 135-145 Serum or plasma potassium measurement (moles/volume) 3.8 mmol/L 3.6-5.0 Serum or plasma chloride measurement (moles/volume) 104 mmol/L 98-107 Carbon dioxide 26 mmol/L 21-32 Serum or plasma anion gap determination (moles/volume) 9 mmol/L 5-14 Serum or plasma urea nitrogen measurement (mass/volume) 7 mg/dL 7-18 Serum or plasma creatinine measurement (mass/volume) 0.52 mg/dL 0.60-1.30 Serum or plasma urea nitrogen/creatinine mass ratio 13 NRG Serum or plasma creatinine measurement with calculation of estimated glomerular filtration rate > NRG Serum or plasma glucose measurement (mass/volume) 134 mg/dL 70-105 Serum or plasma calcium measurement (mass/volume) 7.6 mg/dL 8.5-10.1 Serum or plasma total bilirubin measurement (mass/volume) 0.2 mg/dL 0.1-1.0 Serum or plasma alkaline phosphatase measurement (enzymatic activity/volume) 92 U/L 40-136 Serum or plasma aspartate aminotransferase measurement (enzymatic activity/ volume) 9 U/L 5-34 Serum or plasma alanine aminotransferase measurement (enzymatic activity/volume ) < U/L 0-55 Serum or plasma protein measurement (mass/volume) 5.1 g/dL 6.4-8.2 Serum or plasma albumin measurement (mass/volume) 2.7 g/dL 3.2-4.5 Serum or plasma phosphate measurement (mass/volume) - 03/11/17 04:05 Serum or plasma phosphate measurement (mass/volume) 2.1 mg/dL 2.3-4.7 Magnesium - 03/11/17 04:05 Magnesium 1.8 mg/dL 1.8-2.4 Complete blood count (CBC) with automated white blood cell (WBC) differential - 03/12/17 04:29 Blood leukocytes automated count (number/volume) 6.3 10*3/uL 4.3-11.0 Blood erythrocytes automated count (number/volume) 3.35 10*6/uL 4.35-5.85 Venous blood hemoglobin measurement (mass/volume) 10.4 g/dL 13.3-17.7 Blood hematocrit (volume fraction) 31 % 40-54 Automated erythrocyte mean corpuscular volume 93 [foz_us] 80-99 Automated erythrocyte mean corpuscular hemoglobin (mass per erythrocyte) 31 pg 25-34 Automated erythrocyte mean corpuscular hemoglobin concentration measurement ( mass/volume) 34 g/dL 32-36 Automated erythrocyte distribution width ratio 15.2 % 10.0-14.5 Automated blood platelet count (count/volume) 245 10*3/uL 130-400 Automated blood platelet mean volume measurement 9.3 [foz_us] 7.4-10.4 Automated blood neutrophils/100 leukocytes 86 % 42-75 Automated blood lymphocytes/100 leukocytes 8 % 12-44 Blood monocytes/100 leukocytes 6 % 0-12 Automated blood eosinophils/100 leukocytes 0 % 0-10 Automated blood basophils/100 leukocytes 0 % 0-10 Blood neutrophils automated count (number/volume) 5.4 10*3 1.8-7.8 Blood lymphocytes automated count (number/volume) 0.5 10*3 1.0-4.0 Blood monocytes automated count (number/volume) 0.4 10*3 0.0-1.0 Automated eosinophil count 0.0 10*3/uL 0.0-0.3 Automated blood basophil count (count/volume) 0.0 10*3/uL 0.0-0.1 Comprehensive metabolic panel - 03/12/17 04:29 Serum or plasma sodium measurement (moles/volume) 140 mmol/L 135-145 Serum or plasma potassium measurement (moles/volume) 3.9 mmol/L 3.6-5.0 Serum or plasma chloride measurement (moles/volume) 101 mmol/L 98-107 Carbon dioxide 29 mmol/L 21-32 Serum or plasma anion gap determination (moles/volume) 10 mmol/L 5-14 Serum or plasma urea nitrogen measurement (mass/volume) 8 mg/dL 7-18 Serum or plasma creatinine measurement (mass/volume) 0.58 mg/dL 0.60-1.30 Serum or plasma urea nitrogen/creatinine mass ratio 14 NRG Serum or plasma creatinine measurement with calculation of estimated glomerular filtration rate > NRG Serum or plasma glucose measurement (mass/volume) 116 mg/dL 70-105 Serum or plasma calcium measurement (mass/volume) 8.9 mg/dL 8.5-10.1 Serum or plasma total bilirubin measurement (mass/volume) 0.1 mg/dL 0.1-1.0 Serum or plasma alkaline phosphatase measurement (enzymatic activity/volume) 84 U/L 40-136 Serum or plasma aspartate aminotransferase measurement (enzymatic activity/ volume) 9 U/L 5-34 Serum or plasma alanine aminotransferase measurement (enzymatic activity/volume ) 9 U/L 0-55 Serum or plasma protein measurement (mass/volume) 6.1 g/dL 6.4-8.2 Serum or plasma albumin measurement (mass/volume) 3.1 g/dL 3.2-4.5 Serum or plasma phosphate measurement (mass/volume) - 03/12/17 04:29 Serum or plasma phosphate measurement (mass/volume) 2.5 mg/dL 2.3-4.7 Magnesium - 03/12/17 04:29 Magnesium 1.9 mg/dL 1.8-2.4 Arterial blood gas measurement - 03/12/17 05:10 Blood pCO2 52 mm[Hg] 35-45 Blood pO2 55 mm[Hg] 79-93 Arterial blood bicarbonate measurement (moles/volume) 31 mmol/L 23-27 Arterial blood base excess by calculation 5.5 mmol/L -2.5 -2.5 Arterial blood oxygen saturation measurement 91 % 94-100 * Inhaled oxygen flow rate 30% NRG Arterial blood pH measurement with patient temperature correction 7.38 7.37-7.43 Arterial blood carbon dioxide, total measurement (moles/volume) 32.1 mmol/L 21.0-31.0 Body site R RAD NRG Assessment of wrist artery patency prior to arterial puncture YES- POS NRG Setting of ventilation mode YES NRG Measurement of body temperature 98.1 NRG Arterial blood gas measurement - 03/12/17 06:59 Blood pCO2 49 mm[Hg] 35-45 Blood pO2 63 mm[Hg] 79-93 Arterial blood bicarbonate measurement (moles/volume) 31 mmol/L 23-27 Arterial blood base excess by calculation 5.6 mmol/L -2.5 -2.5 Arterial blood oxygen saturation measurement 95 % 94-100 * Inhaled oxygen flow rate 30% NRG Arterial blood pH measurement with patient temperature correction 7.41 7.37-7.43 Arterial blood carbon dioxide, total measurement (moles/volume) 32.1 mmol/L 21.0-31.0 Body site R RAD NRG Assessment of wrist artery patency prior to arterial puncture YES- POS NRG Setting of ventilation mode YES NRG Measurement of body temperature 96.1 NRG Complete urinalysis with reflex to culture - 03/12/17 07:57 Urine color determination YELLOW NRG Urine clarity determination CLEAR NRG Urine pH measurement by test strip 6 5-9 Specific gravity of urine by test strip 1.020 1.016- 1.022 Urine protein assay by test strip, semi-quantitative 1+ NEGATIVE Urine glucose detection by automated test strip NEGATIVE NEGATIVE Erythrocytes detection in urine sediment by light microscopy 2+ NEGATIVE Urine ketones detection by automated test strip 1+ NEGATIVE Urine nitrite detection by test strip NEGATIVE NEGATIVE Urine total bilirubin detection by test strip NEGATIVE NEGATIVE Urine urobilinogen measurement by automated test strip (mass/volume) NORMAL NORMAL Urine leukocyte esterase detection by dipstick 2+ NEGATIVE Automated urine sediment erythrocyte count by microscopy (number/high power field) [HPF] NRG Automated urine sediment leukocyte count by microscopy (number/high power field ) [HPF] NRG Bacteria detection in urine sediment by light microscopy TRACE NRG Squamous epithelial cells detection in urine sediment by light microscopy 0-2 NRG Crystals detection in urine sediment by light microscopy NONE NRG Casts detection in urine sediment by light microscopy NONE NRG Mucus detection in urine sediment by light microscopy SMALL NRG Complete urinalysis with reflex to culture YES NRG Bacterial urine culture - 03/12/17 07:57 Bacterial urine culture NG [facility] Complete blood count (CBC) with automated white blood cell (WBC) differential - 03/13/17 04:42 Blood leukocytes automated count (number/volume) 6.8 10*3/uL 4.3-11.0 Blood erythrocytes automated count (number/volume) 3.39 10*6/uL 4.35-5.85 Venous blood hemoglobin measurement (mass/volume) 10.3 g/dL 13.3-17.7 Blood hematocrit (volume fraction) 31 % 40-54 Automated erythrocyte mean corpuscular volume 92 [foz_us] 80-99 Automated erythrocyte mean corpuscular hemoglobin (mass per erythrocyte) 30 pg 25-34 Automated erythrocyte mean corpuscular hemoglobin concentration measurement ( mass/volume) 33 g/dL 32-36 Automated erythrocyte distribution width ratio 15.1 % 10.0-14.5 Automated blood platelet count (count/volume) 261 10*3/uL 130-400 Automated blood platelet mean volume measurement 9.2 [foz_us] 7.4-10.4 Automated blood neutrophils/100 leukocytes 82 % 42-75 Automated blood lymphocytes/100 leukocytes 10 % 12-44 Blood monocytes/100 leukocytes 8 % 0-12 Automated blood eosinophils/100 leukocytes 0 % 0-10 Automated blood basophils/100 leukocytes 0 % 0-10 Blood neutrophils automated count (number/volume) 5.6 10*3 1.8-7.8 Blood lymphocytes automated count (number/volume) 0.7 10*3 1.0-4.0 Blood monocytes automated count (number/volume) 0.6 10*3 0.0-1.0 Automated eosinophil count 0.0 10*3/uL 0.0-0.3 Automated blood basophil count (count/volume) 0.0 10*3/uL 0.0-0.1 Comprehensive metabolic panel - 03/13/17 04:42 Serum or plasma sodium measurement (moles/volume) 142 mmol/L 135-145 Serum or plasma potassium measurement (moles/volume) 3.7 mmol/L 3.6-5.0 Serum or plasma chloride measurement (moles/volume) 102 mmol/L 98-107 Carbon dioxide 30 mmol/L 21-32 Serum or plasma anion gap determination (moles/volume) 10 mmol/L 5-14 Serum or plasma urea nitrogen measurement (mass/volume) 13 mg/dL 7-18 Serum or plasma creatinine measurement (mass/volume) 0.84 mg/dL 0.60-1.30 Serum or plasma urea nitrogen/creatinine mass ratio 15 NRG Serum or plasma creatinine measurement with calculation of estimated glomerular filtration rate > NRG Serum or plasma glucose measurement (mass/volume) 171 mg/dL 70-105 Serum or plasma calcium measurement (mass/volume) 7.8 mg/dL 8.5-10.1 Serum or plasma total bilirubin measurement (mass/volume) 0.2 mg/dL 0.1-1.0 Serum or plasma alkaline phosphatase measurement (enzymatic activity/volume) 88 U/L 40-136 Serum or plasma aspartate aminotransferase measurement (enzymatic activity/ volume) 11 U/L 5-34 Serum or plasma alanine aminotransferase measurement (enzymatic activity/volume ) 6 U/L 0-55 Serum or plasma protein measurement (mass/volume) 4.9 g/dL 6.4-8.2 Serum or plasma albumin measurement (mass/volume) 2.9 g/dL 3.2-4.5 Serum or plasma phosphate measurement (mass/volume) - 03/13/17 04:42 Serum or plasma phosphate measurement (mass/volume) 2.4 mg/dL 2.3-4.7 Magnesium - 03/13/17 04:42 Magnesium 1.7 mg/dL 1.8-2.4 Complete blood count (CBC) with automated white blood cell (WBC) differential - 03/14/17 05:40 Blood leukocytes automated count (number/volume) 5.8 10*3/uL 4.3-11.0 Blood erythrocytes automated count (number/volume) 3.10 10*6/uL 4.35-5.85 Venous blood hemoglobin measurement (mass/volume) 9.4 g/dL 13.3-17.7 Blood hematocrit (volume fraction) 29 % 40-54 Automated erythrocyte mean corpuscular volume 92 [foz_us] 80-99 Automated erythrocyte mean corpuscular hemoglobin (mass per erythrocyte) 30 pg 25-34 Automated erythrocyte mean corpuscular hemoglobin concentration measurement ( mass/volume) 33 g/dL 32-36 Automated erythrocyte distribution width ratio 14.9 % 10.0-14.5 Automated blood platelet count (count/volume) 229 10*3/uL 130-400 Automated blood platelet mean volume measurement 8.9 [foz_us] 7.4-10.4 Automated blood neutrophils/100 leukocytes 72 % 42-75 Automated blood lymphocytes/100 leukocytes 15 % 12-44 Blood monocytes/100 leukocytes 13 % 0-12 Automated blood eosinophils/100 leukocytes 0 % 0-10 Automated blood basophils/100 leukocytes 0 % 0-10 Blood neutrophils automated count (number/volume) 4.2 10*3 1.8-7.8 Blood lymphocytes automated count (number/volume) 0.9 10*3 1.0-4.0 Blood monocytes automated count (number/volume) 0.8 10*3 0.0-1.0 Automated eosinophil count 0.0 10*3/uL 0.0-0.3 Automated blood basophil count (count/volume) 0.0 10*3/uL 0.0-0.1 Comprehensive metabolic panel - 03/14/17 05:40 Serum or plasma sodium measurement (moles/volume) 140 mmol/L 135-145 Serum or plasma potassium measurement (moles/volume) 3.7 mmol/L 3.6-5.0 Serum or plasma chloride measurement (moles/volume) 100 mmol/L 98-107 Carbon dioxide 34 mmol/L 21-32 Serum or plasma anion gap determination (moles/volume) 6 mmol/L 5-14 Serum or plasma urea nitrogen measurement (mass/volume) 10 mg/dL 7-18 Serum or plasma creatinine measurement (mass/volume) 0.55 mg/dL 0.60-1.30 Serum or plasma urea nitrogen/creatinine mass ratio 18 NRG Serum or plasma creatinine measurement with calculation of estimated glomerular filtration rate > NRG Serum or plasma glucose measurement (mass/volume) 130 mg/dL 70-105 Serum or plasma calcium measurement (mass/volume) 7.9 mg/dL 8.5-10.1 Serum or plasma total bilirubin measurement (mass/volume) < mg/dL 0.1-1.0 Serum or plasma alkaline phosphatase measurement (enzymatic activity/volume) 79 U/L 40-136 Serum or plasma aspartate aminotransferase measurement (enzymatic activity/ volume) 11 U/L 5-34 Serum or plasma alanine aminotransferase measurement (enzymatic activity/volume ) 8 U/L 0-55 Serum or plasma protein measurement (mass/volume) 5.3 g/dL 6.4-8.2 Serum or plasma albumin measurement (mass/volume) 2.8 g/dL 3.2-4.5 Serum or plasma phosphate measurement (mass/volume) - 03/14/17 05:40 Serum or plasma phosphate measurement (mass/volume) 2.6 mg/dL 2.3-4.7 Magnesium - 03/14/17 05:40 Magnesium 1.8 mg/dL 1.8-2.4 Encounters ACCT No. Visit Date/Time Discharge Status Pt. Type Provider Facility Loc./Unit Complaint [id number] 12/10/2013 15:08:00 12/10/2013 23:59:59 CLS Outpatient DIPESH MIKE APRN [id number] 08/19/2012 13:16:00 Document Registration [id number] 03/09/2017 18:31:00 03/14/2017 14:50:00 DIS Inpatient AMANDEEP GENAO DO [facility] 4TH SEVERE SEPSIS, REPIRATORY FAILURE,PNEUMONIA [id number] 03/05/2017 10:54:00 03/05/2017 13:24:00 DIS Emergency [place], [place] Harris [facility] ER SKIN ABRASIONS ON NOSE AND LEFT HAND--FALL [id number] 02/28/2017 13:26:00 03/03/2017 14:45:00 DIS Inpatient AMANDEEP GENAO DO [facility] 4TH PNEUMONIA,COPD EXACERBATION [id number] 02/04/2017 15:03:00 02/04/2017 23:59:59 CLS Outpatient AMANDEEP GENAO DO [facility] LAB SOB COPD WEIGHT LOSS [id number] 01/14/2017 12:26:00 01/14/2017 23:59:59 CLS Outpatient AMANDEEP GENAO DO [facility] RAD FELL-HIT HEAD [id number] 12/19/2016 12:24:00 12/19/2016 23:59:59 CLS Outpatient AMANDEEP GENAO DO [facility] RAD COPD,COUGH [id number] 09/10/2016 13:39:00 09/10/2016 23:59:59 CLS Outpatient AMANDEEP GENAO DO [facility] LAB SEIZURE [id number] 08/20/2016 10:59:00 08/20/2016 23:59:59 CLS Outpatient AMANDEEP GENAO DO [facility] LAB SEIZURE COPD [id number] 02/28/2016 13:20:00 02/28/2016 23:59:59 CLS Outpatient AMANDEEP GENAO DO [facility] RAD WEIGHT LOSS [id number] 02/21/2016 09:42:00 02/21/2016 23:59:59 CLS Outpatient AMANDEEP GENAO DO [facility] 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,COPD [id number] 02/19/2016 16:00:00 02/19/2016 23:59:59 CLS Outpatient AMANDEEP GENAO DO [facility] RAD RECENT 20LB WEIGHT LOSS [id number] 12/13/2015 16:15:00 12/13/2015 23:59:59 CLS Outpatient AMANDEEP GENAO DO [facility] LAB SEIZURE [id number] 11/20/2015 07:17:00 11/20/2015 09:32:00 DIS Emergency MARY RIOS, STEFAN Zuniga [facility] ER SEIZURE [id number] 10/24/2015 13:47:00 10/24/2015 15:18:00 DIS Emergency NOREEN CHÁVEZ APRN [facility] ER LEFT EAR LAC [id number] 08/10/2015 16:11:00 08/15/2015 12:30:00 DIS Inpatient AMANDEEP GENAO DO [facility] 4TH COPD EXACERBATION [id number] 07/09/2015 13:22:00 07/09/2015 23:59:59 CLS Outpatient AMANDEEP GENAO DO [facility] LAB HYPERLIPIDEMIA [id number] 06/13/2015 13:09:00 06/15/2015 11:40:00 DIS Inpatient AMANDEEP GENAO DO [facility] 4TH COPD EXACERBATION HYPONATREMIA [id number] 05/30/2015 12:53:00 05/30/2015 23:59:59 CLS Outpatient AMANDEEP GENAO DO [facility] LAB SEIZURES, HYPERLIPIDEMIA,PAIN IN L FOOT,HX OF FX [id number] 03/11/2015 16:23:00 03/14/2015 11:36:00 DIS Inpatient AMANDEEP GENAO DO [facility] 4TH PNEUMONIA,HYPOXIA, SEIZURE,COPD EXAC [id number] 11/08/2014 12:06:00 11/08/2014 23:59:59 CLS Outpatient AMANDEEP GENAO DO [facility] LAB [id number] 08/26/2014 11:54:00 08/26/2014 13:42:00 DIS Emergency KARIS BONILLA [facility] ER SOA [id number] 04/26/2014 13:15:00 04/26/2014 23:59:59 CLS Outpatient AMANDEEP GEANO DO [facility] LAB SEIZURES,COPD [id number] 03/25/2014 12:57:00 03/25/2014 23:59:59 CLS Outpatient AMANDEEP GENAO DO [facility] RAD NUMBNESS TINGLING OF R ARM [id number] 11/16/2013 12:35:00 11/16/2013 23:59:59 CLS Outpatient AMANDEEP GENAO DO [facility] LAB LAMICTAL LEVEL [id number] 11/08/2013 11:10:00 11/08/2013 11:27:00 DIS Emergency VANESSA GUTHRIE MD [facility] ER STAPLE REMOVAL [id number] 11/02/2013 01:47:00 11/02/2013 03:43:00 DIS Emergency VANESSA GUTHRIE MD [facility] ER SEIZURE [id number] 11/01/2013 16:10:00 11/01/2013 23:59:59 CLS Outpatient AMANDEEP GENAO DO [facility] RAD LT FOOT SWELLING AND HAS BUMP ON 1ST METATARSAL [id number] 10/23/2013 12:37:00 10/23/2013 23:59:59 CLS Outpatient YELITZA ANTHONY MD [facility] LAB SEIZURES-PRIMARY [id number] 09/28/2013 12:18:00 09/28/2013 23:59:59 CLS Outpatient AMANDEEP GENAO DO Miriam [facility] LAB LEFT LEG SWELL [id number] 09/17/2013 01:40:00 09/17/2013 03:55:00 DIS Emergency CELESTE BILLY DO Erma [facility] ER SEIZURE-FELL [id number] 09/03/2013 12:42:00 09/03/2013 23:59:59 CLS Outpatient AMANDEEP GENAO DO [facility] LAB SEIZURE,COPD [id number] 07/20/2013 09:49:00 07/20/2013 23:59:59 CLS Outpatient AMANDEEP GENAO DO [facility] RAD WEIGHT LOSS, ABD PAIN [id number] 07/12/2013 16:11:00 07/12/2013 23:59:59 CLS Outpatient AMANDEEP GENAO DO [facility] LAB LOST 10 LBS, ABD PAIN [id number] 05/25/2013 16:19:00 05/25/2013 23:59:59 CLS Outpatient AMANDEEP GENAO DO [facility] RAD COUGH,BRONCHITIS [id number] 02/16/2013 13:23:00 02/16/2013 16:25:00 DIS Emergency NOREEN CHÁVEZ 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 [facility] ER FELL HURT ANKLE,KNEE, HIP [id number] 12/23/2012 12:55:00 12/23/2012 14:12:00 DIS Emergency NOREEN CHÁVEZ [employer] 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 [facility] ER FALL/LEFT RIB PAIN [id number] 10/29/2012 11:00:00 10/29/2012 23:59:59 CLS Outpatient AMANDEEP GENAO DO [facility] RAD COPD [id number] 10/22/2012 16:07:00 10/22/2012 23:59:59 CLS Outpatient BROOKENUNUAMANDEEP SCHMIDT DO [facility] RAD BRONCHITIS,COPD [id number] 12/09/2011 15:35:00 Document Registration [id number] 10/15/2011 11:10:00 Document Registration [id number] 07/23/2011 23:37:00 Document Registration [id number] 05/18/2011 14:31:00 Document Registration [id number] 02/15/2011 13:07:00 Document Registration [id number] 01/28/2011 12:37:00 Document Registration [id number] 06/23/2010 19:15:00 Document Registration [id number] 05/08/2010 14:15:00 Document Registration [id number] 02/14/2010 11:40:00 Document Registration [id number] 12/02/2009 12:42:00 Document Registration
[2017-03-30] MEDS ORDERED: RT-ALBUTEROL/IPRATROPIUM 3 ML (DUONEB) VIAL ONE (05:01)
[2017-03-30] MEDS ORDERED: RT-ALBUTEROL SULF 2.5 MG/3 ML PRE-MIX VIAL INH STA (05:06)
[2017-03-30] MEDS ORDERED: methylPREDNISolone 125 MG (Solu-MEDROL) VIAL IVP ONE (05:15)
[2017-03-30] MEDS ORDERED: NS IV PRN (05:15)
[2017-03-30] MEDS ORDERED: RT-IPRATROPIUM (ATROVENT) 0.5MG/2.5ML AMP IH ONE (05:15)
[2017-03-30] MEDS ORDERED: RT-ALBUTEROL/IPRATROPIUM 3 ML (DUONEB) VIAL INH ONE (05:15)
[2017-03-30 05:19] LABS: BASOPHILS % (AUTO) 0 % (0-10); EOSINOPHILS % (AUTO) 0 % (0-10); HEMATOCRIT 37 % (40-54); HEMOGLOBIN 11.7 G/DL (13.3-17.7); LYMPHOCYTES % (AUTO) 13 % (12-44); MEAN CORPUSCULAR HEMOGLOBIN 31 PG (25-34); MEAN CORPUSCULAR HGB CONC 32 G/DL (32-36); MEAN CORPUSCULAR VOLUME 96 FL (80-99); MEAN PLATELET VOLUME 9.4 FL (7.4-10.4); MONOCYTES # (AUTO) 1.1 X 10^3 (0.0-1.0); MONOCYTES % (AUTO) 15 % (0-12); NEUTROPHILS # (AUTO) 5.4 X 10^3 (1.8-7.8); NEUTROPHILS % (AUTO) 72 % (42-75); PLATELET COUNT 217 10^3/uL (130-400); RED BLOOD COUNT 3.81 10^6/uL (4.35-5.85); RED CELL DISTRIBUTION WIDTH 16.8 % (10.0-14.5); WHITE BLOOD COUNT 7.5 10^3/uL (4.3-11.0)
[2017-03-30 05:33] LABS: INR 0.9 (0.8-1.4); PROTHROMBIN TIME PATIENT 12.6 SEC (12.2-14.7)
--- NOTE | 2017-03-30 05:36 | ED General ---
General Chief Complaint: Respiratory Problems Stated Complaint: SOA Nursing Triage Note: PT REPORTS SOA SINCE YESTERDAY. Nursing Sepsis Screen: No Definite Risk Source of Information: Patient, Family, Old Records Exam Limitations: No Limitations History of Present Illness Time Seen by Provider: 04:51 Initial Comments This 61-year-old gentleman presents to the emergency room in moderate respiratory distress. He has severe COPD and was admitted March 09 for severe sepsis and respiratory failure. He was intubated at that time. Patient reports he has not smoked since being discharged from the hospital. Today he developed worsening dyspnea despite doing breathing treatments every 2 hours. He has been afebrile but does have a productive cough. Allergies and Home Medications Allergies Coded Allergies: aspirin (Unverified Allergy, Mild, DOES NOT WORK WELL W/ OTHER MEDS, ) ibuprofen (Unverified Allergy, Mild, 08/10/15) Home Medications Albuterol Sulfate 2.5 Mg/3 Ml Vial.neb, 2.5 MG NEB 5XD PRN for SHORTNESS OF BREATH, (Reported) Albuterol Sulfate 1 Puff Puff, 2 PUFF IH Q6H PRN for SHORTNESS OF BREATH, ( Reported) 1 PUFF = 90 MCG Amoxicillin/Potassium Clav 1 Each Tablet, 875 MG PO BID WITH MEALS for 5 Days, # 10 Prescribed by: AMANDEEP GENAO on 03/14/17 0743 Atorvastatin Calcium 40 Mg Tablet, 40 MG PO 0200, (Reported) Carbamazepine 200 Mg Tablet, 400 MG PO 1500, (Reported) TAKES 2 (200MG) TABLETS Carbamazepine 200 Mg Tablet, 200 MG PO 0200,0800,2300, (Reported) Fluticasone/Salmeterol 1 Each Blst.w.dev, 1 PUFF IH BID, #1 LAST FILLED 01-25-17 Prescribed by: ARLETH GARRIDO on 03/03/17 1352 Gabapentin 300 Mg Capsule, 300 MG PO 2300, (Reported) Gabapentin 600 Mg Tablet, 600 MG PO 0800,1500, (Reported) Lamotrigine 25 Mg Tablet, 25 MG PO 1500,2300, (Reported) Lamotrigine 100 Mg Tablet, 100 MG PO 1500,0200, (Reported) Lisinopril 10 Mg Tablet, 10 MG PO DAILY for 30 Days, #1 Prescribed by: BAN CARNES on 03/14/17 1114 Meloxicam 15 Mg Tablet, 15 MG PO 1500, (Reported) Phenytoin Sodium Extended 100 Mg Capsule, 200 MG PO 1500, (Reported) TAKES 2 (100MG) CAPSULES Phenytoin Sodium Extended 100 Mg Capsule, 100 MG PO 0800,2300, (Reported) Prednisone 10 Mg Tab, 10 MG PO DAILY, #42 Ref 0 Take 6 tabs(60mg)daily, decrease by 1 tab(10mg) every other day. Prescribed by: RANI PACHECO on 03/14/17 0729 Tiotropium [place] 1 Inh Aerp, 1 CAP IH HS, (Reported) Constitutional: no symptoms reported EENTM: no symptoms reported Respiratory: see HPI Cardiovascular: no symptoms reported Gastrointestinal: no symptoms reported Genitourinary: no symptoms reported Musculoskeletal: no symptoms reported Skin: no symptoms reported Psychiatric/Neurological: No Symptoms Reported Hematologic/Lymphatic: No Symptoms Reported Past Xcaeopu-Kwqyca-Vhftun Hx Patient Social History Alcohol Use: Denies Use Recreational Drug Use: No (not current, 15 years ago-ETOH and PO drugs) Smoking Status: Current Everyday Smoker Type Used: Cigarettes Former Smoker, Quit: Mar 02, 2017 Recent Foreign Travel: No Contact w/Someone Who Travel: No Recent Infectious Disease Expo: No Recent Hopitalizations: Yes Immunizations Up To Date PED Vaccines UTD: Yes Surgeries History of Surgeries: Yes Surgeries: Gallbladder Respiratory History of Respiratory Disorde: Yes (tobaccoism) Respiratory Disorders: Asthma, Sleep Apnea, COPD Currently Using CPAP: No Currently Using BIPAP: No Cardiovascular History of Cardiac Disorders: Yes Cardiac Disorders: High Cholesterol Neurological History of Neurological Disord: Yes (post polio syndrome with left-sided deficits) Neurological Disorders: Seizure Disorder Reproductive System Hx Reproductive Disorders: No Sexually Transmitted Disease: No HIV/AIDS: No Gastrointestinal History of Gastrointestinal Di: No Musculoskeletal History of Musculoskeletal Dis: No Musculoskeletal Disorders: Arthritis Endocrine History of Endocrine Disorders: No HEENT Loss of Vision: Denies Hearing Impairment: Denies Cancer History of Cancer: No Psychosocial History of Psychiatric Problem: No Integumentary History of Skin or Integumenta: No Blood Transfusions History of Blood Disorders: No Adverse Reaction to a Blood Tr: No Family Medical History Significant Family History: No Pertinent Family Hx, Heart Disease Family Medial History: Hypercholesterolemia 19 FATHER Hypertension 19 FATHER Physical Exam Vital Signs Vital Sign - Last 12Hours 03/30/17 05:06 O2 Flow Rate 3.00 Capillary Refill : Less Than 3 Seconds General Appearance: WD/WN, Mild Distress HEENT: PERRL/EOMI, Normal ENT Inspection, Pharynx Normal Neck: Normal Inspection Respiratory: Accessory Muscle Use, Respiratory Distress, Wheezing Cardiovascular: Regular Rate, Rhythm, No Edema, No Murmur Gastrointestinal: Normal Bowel Sounds, Non Tender, Soft Extremity: Normal Inspection, Non Tender, No Pedal Edema Neurologic/Psychiatric: Alert, Oriented x3, No Motor/Sensory Deficits, Normal Mood/Affect, swine nutritionist II-XII Norm as Tested Skin: Normal Color, Warm/Dry Focused Exam Evaluation Lactate Level Laboratory Tests 03/30/17 05:05: Lactic Acid Level 1.14 Lactic Acid Level Laboratory Tests Test 03/30/17 05:05 Lactic Acid Level 1.14 MMOL/L (0.50-2.00) Date of ETT Placement: Mar 09, 2017 Time of ETT Placement: 1811 Laceration Repair : Suture Size: 5-0 Progress/Results/Core Measures Suspected Sepsis Recent Fever Within 48 Hours: No Infection Criteria Present: None New/Unexplained Altered Menta: No Sepsis Screen: No Definite Risk Sepsis Diagnosis: SIRS Temperature:98.0 Pulse: 87 Respiratory Rate: 29 Laboratory Tests 03/30/17 05:05: White Blood Count 7.5 Blood Pressure 195 /101 Mean: 132 Laboratory Tests 03/30/17 05:05: Lactic Acid Level 1.14 Laboratory Tests 03/30/17 05:05: Creatinine 0.66, INR Comment 0.9, Platelet Count 217, Total Bilirubin 0.4 Results/Orders Lab Results Laboratory Tests Test 03/30/17 04:50 03/30/17 05:05 Range/Units Urine Color YELLOW Urine Clarity CLEAR Urine pH 8 5-9 Urine Specific [place] 1.010 L 1.016-1.022 Urine Protein NEGATIVE NEGATIVE Urine Glucose (UA) NEGATIVE NEGATIVE Urine Ketones NEGATIVE NEGATIVE Urine Nitrite NEGATIVE NEGATIVE Urine Bilirubin NEGATIVE NEGATIVE Urine Urobilinogen NORMAL NORMAL MG/DL Urine Leukocyte Esterase NEGATIVE NEGATIVE Urine RBC (Auto) NEGATIVE NEGATIVE Urine RBC NONE /HPF Urine WBC NONE /HPF Urine Squamous Epithelial Cells 0-2 /HPF Urine Crystals NONE /LPF Urine Bacteria NEGATIVE /HPF Urine Casts NONE /LPF Urine Mucus NEGATIVE /LPF Urine Culture Indicated NO White Blood Count 7.5 4.3-11.0 10^3/uL Red Blood Count 3.81 L 4.35-5.85 10^6/uL Hemoglobin 11.7 L 13.3-17.7 G/DL Hematocrit 37 L 40-54 % Mean Corpuscular Volume 96 80-99 FL Mean Corpuscular Hemoglobin 31 25-34 PG Mean Corpuscular Hemoglobin Concent 32 32-36 G/DL Red Cell Distribution Width 16.8 H 10.0-14.5 % Platelet Count 217 130-400 10^3/uL Mean Platelet Volume 9.4 7.4-10.4 FL Neutrophils (%) (Auto) 72 42-75 % Lymphocytes (%) (Auto) 13 12-44 % Monocytes (%) (Auto) 15 H 0-12 % Eosinophils (%) (Auto) 0 0-10 % Basophils (%) (Auto) 0 0-10 % Neutrophils # (Auto) 5.4 1.8-7.8 X 10^3 Lymphocytes # (Auto) 1.0 1.0-4.0 X 10^3 Monocytes # (Auto) 1.1 H 0.0-1.0 X 10^3 Eosinophils # (Auto) 0.0 0.0-0.3 10^3/uL Basophils # (Auto) 0.0 0.0-0.1 10^3/uL Prothrombin Time 12.6 12.2-14.7 SEC INR Comment 0.9 0.8-1.4 Activated Partial Thromboplast Time 39 H 24-35 SEC Sodium Level 138 135-145 MMOL/L Potassium Level 4.6 3.6-5.0 MMOL/L Chloride Level 95 L 98-107 MMOL/L Carbon Dioxide Level 34 H 21-32 MMOL/L Anion Gap 9 5-14 MMOL/L Blood Urea Nitrogen 8 7-18 MG/DL Creatinine 0.66 0.60-1.30 MG/DL Estimat Glomerular Filtration Rate > 60 BUN/Creatinine Ratio 12 Glucose Level 114 H 70-105 MG/DL Lactic Acid Level 1.14 0.50-2.00 MMOL/L Calcium Level 9.4 8.5-10.1 MG/DL Total Bilirubin 0.4 0.1-1.0 MG/DL Aspartate Amino Transf (AST/SGOT) 14 5-34 U/L Alanine Aminotransferase (ALT/SGPT) 13 0-55 U/L Alkaline Phosphatase 140 H 40-136 U/L Total Protein 7.9 6.4-8.2 GM/DL Albumin 4.4 3.2-4.5 GM/DL My Orders Orders - STEFAN HERNANDEZ MD Albuterol/Ipra Inhalation Soln (Duoneb I (03/30/17 05:01) Cbc With Automated Diff (03/30/17 05:06) Comprehensive Metabolic Panel (03/30/17 05:06) Lactic Acid Analyzer (03/30/17 05:06) Blood Culture (03/30/17 05:06) Sputum Culture (03/30/17 05:06) Ua Culture If Indicated (03/30/17 05:06) Protime With Inr (03/30/17 05:06) Partial Thromboplastin Time (03/30/17 05:06) Chest 1 View, Ap/Pa Only (03/30/17 05:06) O2 (03/30/17 05:06) Saline Lock/Iv-Start (03/30/17 05:06) Saline Lock/Iv-Start (03/30/17 05:06) Ns Iv 1000 Ml (Sodium Chloride 0.9%) (03/30/17 05:15) Vital Signs Adult Sepsis Patie Q1H (03/30/17 05:06) Remove Rings In Anticipation O (03/30/17 05:06) Methylprednisolone Sod Succ (Solu-Medrol (03/30/17 05:15) Albuterol/Ipra Inhalation Soln (Duoneb I (03/30/17 05:15) Svn Sm Volume Nebulizer Rt-Rfs (03/30/17 05:06) Albuterol Pre-Mix Nebs (Rt) (Proventil (03/30/17 05:06) Ipratropium 0.02% Neb Solution (Atrovent (03/30/17 05:15) Svn Sm Volume Nebulizer Rt-Rfs (03/30/17 05:06) Svn Sm Volume Nebulizer Rt-Rfs (03/30/17 05:06) Bipap Rt-Rfs (03/30/17 05:07) Ns Iv 1000 Ml (Sodium Chloride 0.9%) (03/30/17 06:18) Medications Given in ED Current Medications Medications Dose Ordered Sig/Porfirio Route Start Time Stop Time Status Last Admin Dose Admin Albuterol/ Ipratropium 3 ml ONCE ONCE INH 03/30/17 05:15 03/30/17 05:16 DC 03/30/17 05:06 3 ML Ipratropium [place] 0.5 mg ONCE ONCE IH 03/30/17 05:15 03/30/17 05:16 DC 03/30/17 05:23 0.5 MG Vital Signs/I&O Vital Sign - Last 12Hours 03/30/17 03/30/17 03/30/17 03/30/17 04:50 04:50 05:06 05:23 Temp 98.0 Pulse 87 67 Resp 29 18 B/P (MAP) 195/101 (132) Pulse Ox 85 100 92 100 O2 Delivery Room Air NIV Bilevel Nasal Cannula O2 Flow Rate 3.00 40.00 Capillary Refill : Less Than 3 Seconds Blood Pressure Mean: 132 Progress Note : Progress Note Patient was probably started on BiPAP and an hour-long nebulizer treatment after initial assessment. He was not suspected of having sepsis or pneumonia after workup was complete. He improved dramatically with BiPAP. He also received Solu-Medrol 125 mg IV. Given patient's recent history of respiratory failure requiring intubation, he is being admitted with extreme caution. Dr. Swenson would like him admitted to the intensive care unit. Diagnostic Imaging Diagonstic Imaging: Xray Plain Films/CT/US/NM/MRI: chest Comments Chest x-ray viewed by me. Report not yet available. Compared with prior. No adverse changes. No acute findings suggestive of pneumonia. Departure Communication (Admissions) Time/Spoke to Admitting Phy: 06:[address] Swenson Impression Impression: Primary Impression: Respiratory distress Additional Impression: COPD exacerbation Disposition: ADMITTED INPATIENT Condition: Improved Admissions Decision to Admit Reason: Admit from ER (General) Decision to Admit/Date: Mar 30, 2017 Time/Decision to Admit Time: 05:00 Departure-Patient Inst. Referrals: AMANDEEP GENAO DO (PCP/Family) Primary Care Physician STEFAN HERNANDEZ MD Mar 30, 2017 05:36
[2017-03-30 05:44] LABS: ALANINE AMINOTRANSFERASE 13 U/L (0-55); ALBUMIN 4.4 GM/DL (3.2-4.5); ALKALINE PHOSPHATASE 140 U/L (40-136); BILIRUBIN,TOTAL 0.4 MG/DL (0.1-1.0); BUN/CREATININE RATIO 12; CALCIUM 9.4 MG/DL (8.5-10.1); CARBON DIOXIDE 34 MMOL/L (21-32); CHLORIDE 95 MMOL/L (98-107); CREATININE SERUM 0.66 MG/DL (0.60-1.30); GFR ESTIMATED > 60; GLUCOSE 114 MG/DL (70-105); POTASSIUM 4.6 MMOL/L (3.6-5.0); SODIUM 138 MMOL/L (135-145); TOTAL PROTEIN 7.9 GM/DL (6.4-8.2)
[2017-03-30 06:11] LABS: BILIRUBIN,URINE NEGATIVE (NEGATIVE); CLARITY,URINE CLEAR; COLOR,URINE YELLOW; GLUCOSE, URINE (UA) NEGATIVE (NEGATIVE); KETONES,URINE NEGATIVE (NEGATIVE); LEUKOCYTE ESTERASE ,URINE NEGATIVE (NEGATIVE); NITRITE,URINE NEGATIVE (NEGATIVE); PH,URINE 8 (5-9); PROTEIN,URINE NEGATIVE (NEGATIVE); UROBILINOGEN,URINE NORMAL (NORMAL)
[2017-03-30] MEDS ORDERED: NS IV 1000 ML 1,000 ML IV ONE (06:18)
[2017-03-30 06:19] LABS: BACTERIA,URINE NEGATIVE /HPF; SQUAMOUS EPITHELIAL CELL,UR 0-2 /HPF
--- OUTSIDE RECORDS SUMMARY | 2017-03-30 07:07 | XMS REPORT | Clinical Summary ---
Author Author [facility] Organization [facility] Address Unknown Phone Unavailable Care Team Providers Care Hazmat Cdl A Driver Name Role Phone PCP Unavailable Source Comments Some departments are not documenting in the electronic medical record. If you do not see the information that you expected, contact Release of Information in the Health Information Management department at [phone] for further assistance in locating additional records.[facility] Allergies Active Allergy Reactions Severity Noted [...] Date Seizures (HCC) 10/22/2013 Hemiparesis ([facility]) 10/22/2013 Asthma 10/22/2013 COPD (chronic obstructive pulmonary disease) ([facility]) 10/22/2013 Hyperlipidemia 10/22/2013 Weight loss 10/22/2013 [...]
--- NOTE | 2017-03-30 09:02 | Diagnostic Imaging Report ---
EXAM: Portable erect AP chest at 6 o'clock. INDICATION: Shortness of breath FINDINGS: The heart size is within normal limits and stable when compared to 03/14/2017. The patchy infiltrate in the right infrahilar region seen previously has diminished somewhat since the prior study. There is still a small amount of atelectasis/infiltrate near the apex of the left heart. The lungs are otherwise clear. The mediastinum is not widened. The osseous structures are intact. There is severe degenerative disease involving both humeral heads. Also, in the interval since the prior exam, the right-sided PICC line has been removed. IMPRESSION: 1. The appearance of the chest has improved somewhat since the prior exam as the right infrahilar region is slightly better aerated. A followup study would be recommended for continued evaluation. 2. The right-sided PICC line has been removed. Dictated by: Dictated on workstation # [id number]
[2017-03-30] MEDS ORDERED: RT-ALBUTEROL SULF 2.5 MG/3 ML PRE-MIX VIAL INH PRN ×2 (09:45→11:45)
[2017-03-30] MEDS: NS IV 1000 ML 1,000 ML IV SCH ×2 (09:45→17:59)
[2017-03-30] MEDS: RT-ALBUTEROL/IPRATROPIUM 3 ML (DUONEB) VIAL IH SCH ×4 (10:28→22:17)
[2017-03-30] MEDS ORDERED: RT-ALBUTEROL HFA (VENTOLIN) PER PUFF IH PRN (11:45)
--- NOTE | 2017-03-30 11:55 | History & Physical-Hospitalist ---
HPI History of Present Illness: HPI/Chief Complaint CC: AECOPD HPI: This is a 61-year-old white male who was just released from the hospital for pneumonia [address] Feng who presented to the emergency room with shortness of breath and wheezing. He completed his antibiotics and all medications as ordered after discharge from the hospital. Chest x-ray did not reveal any acute infiltrate cities placed on IV steroids BiPAP which was easily transitioned over to nasal cannula oxygen and nebulizer treatments were initiated. At this current time patient feels like he is about to have a seizure so a seizure home medication all the other medications were restarted and patient will remain on IV steroids and close monitoring. Source: patient Exam Limitations: no limitations Date Seen 03/30/17 Time Seen by Provider: 10:00 Attending Physician Micky Feng DO PCP Micky Feng DO Referring Physician Date of Admission Mar 30, 2017 at 07:03 Home Medications & Allergies Home Medications Reviewed patient Home Medication Reconciliation Form Allergies Allergies Coded Allergies aspirin (Unverified Allergy, Mild, DOES NOT WORK WELL W/ OTHER MEDS, 08/10/15) ibuprofen (Unverified Allergy, Mild, 08/10/15) Past Upvobmd-Jsvqqd-Pbfwuu Hx Patient Social History Marrital Status: single Employed/Student: unemployed Alcohol Use: Denies Use Recreational Drug Use: No (not current, 15 years ago-ETOH and PO drugs) Smoking Status: Former Smoker (3 weeks ago) Former Smoker, Quit: Mar 02, 2017 Type Used: Cigarettes Physical Abuse Screen: No Sexual Abuse: No Recent Foreign Travel: No Contact w/other who traveled: No Recent Hopitalizations: Yes Recent Infectious Disease Expo: No Immunizations Up To Date Pediatric: Yes Surgeries Yes Gallbladder Respiratory Yes (tobaccoism) COPD, Emphysema, Pneumonia Currently Using CPAP: No Currently Using BIPAP: No Cardiovascular Yes High Cholesterol 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) Seizure Disorder Reproductive System Hx Reproductive Disorders: No Sexually Transmitted Disease: No HIV/AIDS: No Gastrointestinal No Musculoskeletal No Arthritis Endocrine History of Endocrine Disorders: No HEENT Loss of Vision: Denies Hearing Impairment: Denies Cancer No Psychosocial History of Psychiatric Problem: No Integumentary History of Skin or Integumenta: No Blood Transfusions History of Blood Disorders: No Adverse Reaction to a Blood Tr: No Family Medical History Significant Family History: No Pertinent Family Hx, Heart Disease Family Hx: Hypercholesterolemia 19 FATHER Hypertension 19 FATHER Review of Systems Constitutional: see HPI EENTM: no symptoms reported Respiratory: cough, short of breath, wheezing Cardiovascular: no symptoms reported Gastrointestinal: no symptoms reported Genitourinary: no symptoms reported Musculoskeletal: no symptoms reported Skin: no symptoms reported Psychiatric/Neurological: Seizure All Other Systems Reviewed Negative Unless Noted: Yes Physical Exam Physical Exam Vital Signs Vital Sign - Last 12Hours 03/30/17 05:06 O2 Flow Rate 3.00 Capillary Refill : Less Than 3 Seconds General Appearance: No Apparent Distress, WD/WN, Chronically ill, Thin Eyes: Bilateral Eye Normal Inspection, Bilateral Eye PERRL HEENT: PERRL/EOMI, Normal ENT Inspection, Pharynx Normal Neck: Full Range of Motion, Normal Inspection, Non Tender, Supple, Carotid Bruit Respiratory: Chest Non Tender, No Accessory Muscle Use, No Respiratory Distress , Crackles, Decreased Breath Sounds, Wheezing Cardiovascular: Regular Rate, Rhythm, No Edema, No Gallop, No JVD, No Murmur, Normal Peripheral Pulses Gastrointestinal: Normal Bowel Sounds, No Organomegaly, No Pulsatile Mass, Non Tender, Soft Back: Normal Inspection, No CVA Tenderness, No Vertebral Tenderness Extremity: Normal Capillary Refill, Normal Inspection, Normal Range of Motion, Non Tender, No Calf Tenderness, No Pedal Edema Neurologic/Psychiatric: Alert, Oriented x3, No Motor/Sensory Deficits, Normal Mood/Affect Skin: Normal Color, Warm/Dry Lymphatic: No Adenopathy Results Results/Procedures Lab Laboratory Tests 03/30/17 05:05 Assessment/Plan Admission Diagnosis Assessment: Acute exacerbation of COPD Recent hospital stay for pneumonia 2 weeks ago Former smoker quit 3 weeks ago Seizure disorder severe on multiple meds Hypertension Hyperlipidemia Assessment and Plan Plan: Maintain IV steroids Nebulizer treatments Oxygen Home medications Monitor closely BiPAP when necessary May be able to transfer to fourth floor later today Clinical Quality Measures DVT/VTE Risk/Contraindication: Risk Factor Score Per Nursin RFS Level Per Nursing on Admit: 3=High JAMIR ELLISON DO Mar 30, 2017 11:55
[2017-03-30] MEDS ORDERED: PHENYTOIN 100 MG (DILANTIN) CAP PO NR (12:30)
[2017-03-30] MEDS ORDERED: carBAMazepine 200 MG (TEGretol) TAB PO NR (12:30)
[2017-03-30] MEDS ORDERED: GABAPENTIN 600 MG (NEURONTIN) TAB PO NR (12:30)
[2017-03-30] MEDS: methylPREDNISolone 40 MG/ML (Solu-MEDROL) VIAL IV SCH ×2 (12:34→17:38)
[2017-03-30] MEDS: carBAMazepine 200 MG (TEGretol) TAB PO SCH ×2 (15:46→23:09)
[2017-03-30] MEDS: lamoTRIgine 25 MG (LaMICtal) TAB PO SCH ×2 (15:46→23:09)
[2017-03-30] MEDS: MELOXICAM 7.5 MG (MOBIC) TABLET PO SCH (15:46)
[2017-03-30] MEDS: PHENYTOIN 100 MG (DILANTIN) CAP PO SCH ×2 (15:46→23:09)
[2017-03-30] MEDS: GABAPENTIN 600 MG (NEURONTIN) TAB PO SCH (15:46)
[2017-03-30] MEDS: RT-ADVAIR HFA 115/21 MCG PER PUFF IH SCH (19:36)
[2017-03-30] MEDS ORDERED: UMECLIDINIUM BROMIDE (INCRUSE ELLIPTA) 7'S IH SCH (21:00)
[2017-03-30] MEDS: GABAPENTIN 300 MG (NEURONTIN) CAP PO SCH (23:09)
[2017-03-31 00:30] VITALS: BP 142/66
[2017-03-31] MEDS: methylPREDNISolone 40 MG/ML (Solu-MEDROL) VIAL IV SCH ×5 (00:33→23:08)
[2017-03-31] MEDS: RT-ALBUTEROL/IPRATROPIUM 3 ML (DUONEB) VIAL IH SCH ×6 (02:00→22:22)
[2017-03-31] MEDS: ATORVASTATIN 40 MG (LIPITOR) TABLET PO SCH (02:29)
[2017-03-31] MEDS: carBAMazepine 200 MG (TEGretol) TAB PO SCH ×4 (02:29→23:08)
[2017-03-31] MEDS: NS IV 1000 ML 1,000 ML IV SCH ×3 (04:10→23:08)
[2017-03-31 04:25] VITALS: BP 166/80
[2017-03-31 05:53] LABS: BASOPHILS % (AUTO) 0 % (0-10); EOSINOPHILS % (AUTO) 0 % (0-10); HEMATOCRIT 30 % (40-54); HEMOGLOBIN 9.6 G/DL (13.3-17.7); LYMPHOCYTES # (AUTO) 0.4 X 10^3 (1.0-4.0); LYMPHOCYTES % (AUTO) 9 % (12-44); MEAN CORPUSCULAR HEMOGLOBIN 31 PG (25-34); MEAN CORPUSCULAR HGB CONC 32 G/DL (32-36); MEAN CORPUSCULAR VOLUME 96 FL (80-99); MEAN PLATELET VOLUME 9.9 FL (7.4-10.4); MONOCYTES # (AUTO) 0.4 X 10^3 (0.0-1.0); MONOCYTES % (AUTO) 8 % (0-12); NEUTROPHILS % (AUTO) 83 % (42-75); PLATELET COUNT 171 10^3/uL (130-400); RED BLOOD COUNT 3.14 10^6/uL (4.35-5.85); RED CELL DISTRIBUTION WIDTH 16.8 % (10.0-14.5); WHITE BLOOD COUNT 4.8 10^3/uL (4.3-11.0)
[2017-03-31 06:20] LABS: ALANINE AMINOTRANSFERASE 9 U/L (0-55); ALBUMIN 3.5 GM/DL (3.2-4.5); ALKALINE PHOSPHATASE 113 U/L (40-136); BILIRUBIN,TOTAL 0.2 MG/DL (0.1-1.0); BUN/CREATININE RATIO 22; CALCIUM 8.5 MG/DL (8.5-10.1); CARBON DIOXIDE 31 MMOL/L (21-32); CHLORIDE 101 MMOL/L (98-107); CREATININE SERUM 0.59 MG/DL (0.60-1.30); GFR ESTIMATED > 60; GLUCOSE 110 MG/DL (70-105); POTASSIUM 4.6 MMOL/L (3.6-5.0); SODIUM 139 MMOL/L (135-145)
[2017-03-31] MEDS: RT-ADVAIR HFA 115/21 MCG PER PUFF IH SCH ×2 (06:33→18:39)
[2017-03-31] MEDS: UMECLIDINIUM BROMIDE (INCRUSE ELLIPTA) 7'S IH SCH (07:56)
[2017-03-31] MEDS: lisINopril 10 MG (PRINIVIL) TAB PO SCH (08:16)
[2017-03-31] MEDS: PHENYTOIN 100 MG (DILANTIN) CAP PO SCH ×3 (08:16→23:08)
[2017-03-31 08:17] VITALS: BP 158/79
[2017-03-31] MEDS: GABAPENTIN 600 MG (NEURONTIN) TAB PO SCH ×2 (08:17→14:05)
[2017-03-31 11:25] VITALS: BP 159/79
--- NOTE | 2017-03-31 12:14 | Progress Note-Hospitalist ---
Progress Note HPI/CC on Admission CC: AECOPD HPI: This is a 61-year-old white male who was just released from the hospital for pneumonia [address] Feng who presented to the emergency room with shortness of breath and wheezing. He completed his antibiotics and all medications as ordered after discharge from the hospital. Chest x-ray did not reveal any acute infiltrate cities placed on IV steroids BiPAP which was easily transitioned over to nasal cannula oxygen and nebulizer treatments were initiated. At this current time patient feels like he is about to have a seizure so a seizure home medication all the other medications were restarted and patient will remain on IV steroids and close monitoring. Progress Notes/Assess & Plan Date Seen 03/31/17 Time Seen by Provider: 11:00 Admission Dx/Process Assessment: Acute exacerbation of COPD Recent hospital stay for pneumonia 2 weeks ago Former smoker quit 3 weeks ago Seizure disorder severe on multiple meds Hypertension Hyperlipidemia Diagonsis/Assessment & Plan Patient doing well and wants to go home soon Checked meds and labs IV steroids tolerated well No BM yet and wants to wait until he goes home to have one AFVSS, Pleasant, improved, chronically ill, thin RRR, subtle wheezing noted all lo but improved from yesterday No edema Laboratory Tests 03/31/17 05:12 Assessment: Acute exacerbation of COPD Recent hospital stay for pneumonia 2 weeks ago Former smoker quit 3 weeks ago Seizure disorder severe on multiple meds Hypertension Hyperlipidemia Chronic anemia Plan: Maintain IV steroids Nebulizer treatments Oxygen Home medications Monitor closely DC per PCP tomorrow JAMIR ELLISON DO Mar 31, 2017 12:14
[2017-03-31] MEDS: lamoTRIgine 25 MG (LaMICtal) TAB PO SCH ×2 (14:06→23:08)
[2017-03-31] MEDS: MELOXICAM 7.5 MG (MOBIC) TABLET PO SCH (14:06)
[2017-03-31 15:50] VITALS: BP 159/80
[2017-03-31 19:19] VITALS: BP 161/72
[2017-03-31] MEDS: GABAPENTIN 300 MG (NEURONTIN) CAP PO SCH (23:08)
[2017-04-01] VITALS: BP 154/70
[2017-04-01] MEDS: ATORVASTATIN 40 MG (LIPITOR) TABLET PO SCH (02:14)
[2017-04-01] MEDS: RT-ALBUTEROL/IPRATROPIUM 3 ML (DUONEB) VIAL IH SCH ×6 (02:14→22:23)
[2017-04-01] MEDS: carBAMazepine 200 MG (TEGretol) TAB PO SCH ×4 (02:14→22:18)
[2017-04-01 04:00] VITALS: BP 162/86
[2017-04-01] MEDS: methylPREDNISolone 40 MG/ML (Solu-MEDROL) VIAL IV SCH ×3 (05:47→22:18)
--- NOTE | 2017-04-01 07:01 | Progress Note (SOAP) ---
Subjective Time Seen by Provider: 06:45 Subjective/Events-last exam COPD with acute exacerbation. Former smoker stopped 3 weeks ago. Seizure. Hypertension. Hyperlipidemia. Sputum culture positive for Serratia M Patient put on Rocephin today. Patient feeling better. Patient still has a wheeze Objective Exam Vital Signs Date Time Temp Pulse Resp B/P (MAP) Pulse Ox O2 Delivery O2 Flow Rate FiO2 04/01/17 04:00 98.2 61 20 99 Nasal Cannula 2.00 04/01/17 02:15 91 Nasal Cannula 2.00 04/01/17 00:00 97.3 63 20 154/70 (98) 98 Nasal Cannula 2.00 03/31/17 22:23 87 Nasal Cannula 2.00 03/31/17 20:45 Nasal Cannula 3.00 03/31/17 19:19 97.8 68 18 161/72 (101) 98 Nasal Cannula 2.00 03/31/17 18:40 93 Nasal Cannula 2.00 03/31/17 15:50 98.1 64 18 159/80 (106) 98 Nasal Cannula 2.00 03/31/17 14:24 97 Nasal Cannula 2.00 03/31/17 11:25 98.7 65 18 159/79 (105) 99 Nasal Cannula 2.00 03/31/17 10:20 92 Nasal Cannula 2.00 03/31/17 09:00 Nasal Cannula 3.00 03/31/17 08:17 98.0 74 19 158/79 (105) 96 Nasal Cannula 2.00 03/31/17 07:56 92 Nasal Cannula 2.00 I & O 04/01/17 07:00 Intake Total 2900 ml Balance 2900 ml Capillary Refill : Less Than 3 Seconds General Appearance: No Apparent Distress, Thin HEENT: Normal ENT Inspection Neck: Full Range of Motion, Normal Inspection Respiratory: No Accessory Muscle Use, No Respiratory Distress, Decreased Breath Sounds, Wheezing, Other Cardiovascular: Regular Rate, Rhythm, No Murmur Gastrointestinal: non tender, soft Results Lab Microbiology 03/30/17 Blood Culture - Preliminary, Resulted No growth 03/30/17 MRSA Screen - Final, Complete MRSA not isolated Assessment/Plan Assessment/Plan Assess & Plan/Chief Complaint patient feeling better today. Patient still has a wheeze. COPD with acute exacerbation. Sputum culture Serratia M. Former smoker. 3 weeks ago. Seizure disorder. Hypertension. Hyperlipidemia. Patient in the right direction probably discharge tomorrow after another dose of Rocephin Clinical Quality Measures DVT/VTE Risk/Contraindication: Risk Factor Score Per Nursin RFS Level Per Nursing on Admit: 3=High AMANDEEP GENAO DO Apr 01, 2017 07:01
[2017-04-01] MEDS: RT-ADVAIR HFA 115/21 MCG PER PUFF IH SCH ×2 (07:06→19:33)
[2017-04-01] MEDS: UMECLIDINIUM BROMIDE (INCRUSE ELLIPTA) 7'S IH SCH (07:06)
[2017-04-01] MEDS ORDERED: CATHETER FLUSH 10 ML SYR IV PRN (07:15)
[2017-04-01 07:25] LABS: HEMOGLOBIN 9.8 G/DL (13.3-17.7); MEAN PLATELET VOLUME 9.6 FL (7.4-10.4); RED BLOOD COUNT 3.22 10^6/uL (4.35-5.85); RED CELL DISTRIBUTION WIDTH 16.9 % (10.0-14.5); WHITE BLOOD COUNT 5.4 10^3/uL (4.3-11.0)
[2017-04-01 07:42] LABS: BUN/CREATININE RATIO 14; CALCIUM 8.7 MG/DL (8.5-10.1); CARBON DIOXIDE 33 MMOL/L (21-32); CHLORIDE 100 MMOL/L (98-107); CREATININE SERUM 0.64 MG/DL (0.60-1.30); GFR ESTIMATED > 60; GLUCOSE 107 MG/DL (70-105); POTASSIUM 4.1 MMOL/L (3.6-5.0); SODIUM 140 MMOL/L (135-145)
[2017-04-01] MEDS: PHENYTOIN 100 MG (DILANTIN) CAP PO SCH ×3 (07:59→22:18)
[2017-04-01 08:00] VITALS: BP 180/86
[2017-04-01] MEDS: ENOXAPARIN 40 MG/0.4 ML (LOVENOX) SYR SC SCH (08:00)
--- NOTE | 2017-04-01 08:02 | Diagnostic Imaging Report ---
INDICATION: Shortness of air EXAMINATION: Two-view chest 04/01/2017 COMPARISON: 03/30/2017 FINDINGS: Lungs are slightly hyperinflated. The pulmonary vasculature is congested. Heart is stable. Increased markings throughout both lungs likely due to atelectasis with an early infiltrate at the left lung base not excluded. No effusions are seen and there is no pneumothorax. IMPRESSION: 1. Atelectasis versus very early infiltrate left lung base. 2. Pulmonary vascular congestion. Dictated by: Dictated on workstation # [id number]
[2017-04-01] MEDS: NS IV 1000 ML 1,000 ML IV SCH ×2 (08:05→19:22)
[2017-04-01] MEDS: GABAPENTIN 600 MG (NEURONTIN) TAB PO SCH ×2 (09:05→15:08)
[2017-04-01] MEDS: lisINopril 10 MG (PRINIVIL) TAB PO SCH (09:05)
[2017-04-01] MEDS: cefTRIAXone INJECTION 1,000 MG in NS (IVPB) 50 ML IV SCH (09:06)
[2017-04-01] MEDS ORDERED: LISI10TA2 PO (09:47)
[2017-04-01 12:00] VITALS: BP 156/82
[2017-04-01] MEDS ORDERED: INFLUENZA TRIvalent 2017-2018 0.5 ML/45 MCG SYR IM ONE (12:00)
[2017-04-01] MEDS: MELOXICAM 7.5 MG (MOBIC) TABLET PO SCH (15:09)
[2017-04-01] MEDS: lamoTRIgine 25 MG (LaMICtal) TAB PO SCH ×2 (15:09→22:18)
[2017-04-01 16:00] VITALS: BP 180/87
[2017-04-01 20:00] VITALS: BP 179/86
[2017-04-01] MEDS: GABAPENTIN 300 MG (NEURONTIN) CAP PO SCH (22:18)
[2017-04-02] VITALS: BP 168/85
[2017-04-02 01:44] VITALS: BP 168/85
[2017-04-02] MEDS: carBAMazepine 200 MG (TEGretol) TAB PO SCH ×2 (01:46→08:27)
[2017-04-02] MEDS: ATORVASTATIN 40 MG (LIPITOR) TABLET PO SCH (01:46)
[2017-04-02] MEDS: RT-ALBUTEROL/IPRATROPIUM 3 ML (DUONEB) VIAL IH SCH ×2 (03:39→07:00)
[2017-04-02 04:00] VITALS: BP 164/98
[2017-04-02] MEDS: methylPREDNISolone 40 MG/ML (Solu-MEDROL) VIAL IV SCH (05:23)
[2017-04-02] MEDS: NS IV 1000 ML 1,000 ML IV SCH (05:24)
[2017-04-02] MEDS: ENOXAPARIN 40 MG/0.4 ML (LOVENOX) SYR SC SCH (05:30)
[2017-04-02 05:32] LABS: HEMOGLOBIN 10.1 G/DL (13.3-17.7); MEAN PLATELET VOLUME 9.5 FL (7.4-10.4); RED BLOOD COUNT 3.32 10^6/uL (4.35-5.85); RED CELL DISTRIBUTION WIDTH 16.6 % (10.0-14.5); WHITE BLOOD COUNT 5.5 10^3/uL (4.3-11.0)
[2017-04-02 05:49] LABS: BUN/CREATININE RATIO 18; CALCIUM 8.7 MG/DL (8.5-10.1); CARBON DIOXIDE 31 MMOL/L (21-32); CHLORIDE 100 MMOL/L (98-107); CREATININE SERUM 0.62 MG/DL (0.60-1.30); GFR ESTIMATED > 60; GLUCOSE 105 MG/DL (70-105); POTASSIUM 4.1 MMOL/L (3.6-5.0); SODIUM 140 MMOL/L (135-145)
--- NOTE | 2017-04-02 07:57 | Progress Note (SOAP) ---
Subjective Time Seen by Provider: 07:50 Subjective/Events-last exam patient feeling better and doing better and wants to go home today. Patient's blood pressure elevated probably due to the IV fluids. Patient has no history of hypertension previously. COPD with acute exacerbation. Respiratory distress. Seizure disorder. Objective Exam Vital Signs Date Time Temp Pulse Resp B/P (MAP) Pulse Ox O2 Delivery O2 Flow Rate FiO2 04/02/17 07:01 98 Nasal Cannula 2.00 04/02/17 04:00 98.4 62 22 164/98 (120) 100 Nasal Cannula 2.00 04/02/17 03:39 97 Nasal Cannula 2.00 04/02/17 00:00 168/85 (112) 04/02/17 00:00 98.2 74 22 93 Nasal Cannula 2.00 04/01/17 22:23 96 Nasal Cannula 2.00 04/01/17 20:00 Nasal Cannula 3.00 04/01/17 20:00 97.8 63 18 179/86 (117) 99 Nasal Cannula 2.00 04/01/17 19:39 97 Nasal Cannula 2.00 04/01/17 19:34 94 Nasal Cannula 2.00 04/01/17 16:00 98.5 74 16 180/87 (118) 96 Nasal Cannula 2.00 04/01/17 13:56 94 Nasal Cannula 2.00 04/01/17 12:00 97.1 65 20 156/82 (106) 98 Nasal Cannula 2.00 04/01/17 09:54 92 Nasal Cannula 2.00 04/01/17 08:00 96.5 63 20 180/86 (117) 97 Nasal Cannula 2.00 I & O 04/02/17 07:00 Intake Total 4950 ml Balance 4950 ml Capillary Refill : Less Than 3 Seconds General Appearance: No Apparent Distress HEENT: Normal ENT Inspection Neck: Full Range of Motion, Normal Inspection Respiratory: Chest Non Tender, Normal Breath Sounds, No Accessory Muscle Use, No Respiratory Distress, Decreased Breath Sounds Cardiovascular: Regular Rate, Rhythm, No Murmur Gastrointestinal: non tender, soft Results Lab Laboratory Tests 04/02/17 05:20 Laboratory Tests 04/02/17 05:20: White Blood Count 5.5, Red Blood Count 3.32L, Hemoglobin 10.1L, Hematocrit 31L, Mean Corpuscular Volume 94, Mean Corpuscular Hemoglobin 30, Mean Corpuscular Hemoglobin Concent 32, Red Cell Distribution Width 16.6H, Platelet Count 170, Mean Platelet Volume 9.5, Sodium Level 140, Potassium Level 4.1, Chloride Level 100, Carbon Dioxide Level 31, Anion Gap 9, Blood Urea Nitrogen 11, Creatinine 0.62, Estimat Glomerular Filtration Rate > 60, BUN/Creatinine Ratio 18, Glucose Level 105, Calcium Level 8.7 Microbiology 03/30/17 Blood Culture - Preliminary, Resulted No growth 03/30/17 MRSA Screen - Final, Complete MRSA not isolated Assessment/Plan Assessment/Plan Assess & Plan/Chief Complaint patient feeling better today. Patient still has a wheeze. COPD with acute exacerbation. Sputum culture Serratia M. Former smoker. 3 weeks ago. Seizure disorder. Hypertension. Hyperlipidemia. Patient in the right direction probably discharge tomorrow after another dose of Rocephin. . 04/02/17. COPD with acute exacerbation. Sputum culture Serratia. Former smoker. Seizure disorder. New-onset hypertension due to IV fluids. Hyperlipidemia. Plan to discharge today on [employer]mn[employer] Clinical Quality Measures DVT/VTE Risk/Contraindication: Risk Factor Score Per Nursin RFS Level Per Nursing on Admit: 3=High AMANDEEP GENAO DO Apr 02, 2017 07:57
[2017-04-02 08:00] VITALS: BP 174/86
[2017-04-02] MEDS: cefTRIAXone INJECTION 1,000 MG in NS (IVPB) 50 ML IV SCH (08:25)
[2017-04-02] MEDS: lisINopril 10 MG (PRINIVIL) TAB PO SCH (08:27)
[2017-04-02] MEDS: PHENYTOIN 100 MG (DILANTIN) CAP PO SCH (08:27)
[2017-04-02] MEDS: GABAPENTIN 600 MG (NEURONTIN) TAB PO SCH (08:27)
--- NOTE | 2017-04-02 08:58 | Diagnostic Imaging Report ---
INDICATION: Respiratory distress. EXAMINATION: PA and lateral chest Heart size and pulmonary vascularity are normal. There is some infiltrate present at the left posterior lung base. This appears similar to the previous days comparison study. IMPRESSION: Stable chest with minimal left posterior basilar infiltrate. Dictated by: Dictated on workstation # [id number]
[2017-04-02] MEDS ORDERED: CEFD300C3 PO (11:54)
[2017-04-02] MEDS ORDERED: LISI10TA2 PO ×2 (11:54→12:16)
[2017-04-02 12:00] VITALS: BP 170/70
[2017-04-02] MEDS ORDERED: lisINopril 10 MG (PRINIVIL) TAB PO NR (12:00)
--- NOTE | 2017-04-03 08:24 | Discharge Summary ---
Diagnosis/Chief Complaint Date of Admission Mar 30, 2017 at 07:03 Date of Discharge Apr 02, 2017 at 12:25 Discharge Date: Apr 02, 2017 Discharge Time: 08:20 Discharge Diagnosis cOPD with acute exacerbation . Hypertension. Sputum culture Serratia. Former smoker 3 weeks ago. Hyperlipidemia. Seizure Discharge Summary Discharge Physical Examination Allergies: Coded Allergies: aspirin (Unverified Allergy, Mild, DOES NOT WORK WELL W/ OTHER MEDS, ) ibuprofen (Unverified Allergy, Mild, 08/10/15) Vitals & I&Os Vital Signs Date Time Temp Pulse Resp B/P (MAP) Pulse Ox O2 Delivery O2 Flow Rate FiO2 04/02/17 12:25 04/02/17 12:00 97.8 57 18 99 Nasal Cannula 2.00 Hospital Course patient in hospital did better. Labs (last 24 hrs) Laboratory Tests 03/30/17 04:50: Urine Color YELLOW, Urine Clarity CLEAR, Urine pH 8, Urine Specific [place] 1.010L, Urine Protein NEGATIVE, Urine Glucose (UA) NEGATIVE, Urine Ketones NEGATIVE, Urine Nitrite NEGATIVE, Urine Bilirubin NEGATIVE, Urine Urobilinogen NORMAL, Urine Leukocyte Esterase NEGATIVE, Urine RBC (Auto) NEGATIVE, Urine RBC NONE, Urine WBC NONE, Urine Squamous Epithelial Cells 0-2, Urine Crystals NONE, Urine Bacteria NEGATIVE, Urine Casts NONE, Urine Mucus NEGATIVE, Urine Culture Indicated NO 03/30/17 05:05: White Blood Count 7.5, Red Blood Count 3.81L, Hemoglobin 11.7L, Hematocrit 37L, Mean Corpuscular Volume 96, Mean Corpuscular Hemoglobin 31, Mean Corpuscular Hemoglobin Concent 32, Red Cell Distribution Width 16.8H, Platelet Count 217, Mean Platelet Volume 9.4, Neutrophils (%) (Auto) 72, Lymphocytes (%) (Auto) 13, Monocytes (%) (Auto) 15H, Eosinophils (%) (Auto) 0, Basophils (%) (Auto) 0, Neutrophils # (Auto) 5.4, Lymphocytes # (Auto) 1.0, Monocytes # (Auto) 1.1H, Eosinophils # (Auto) 0.0, Basophils # (Auto) 0.0, Prothrombin Time 12.6, INR Comment 0.9, Activated Partial Thromboplast Time 39H, Sodium Level 138, Potassium Level 4.6, Chloride Level 95L, Carbon Dioxide Level 34H, Anion Gap 9, Blood Urea Nitrogen 8, Creatinine 0.66, Estimat Glomerular Filtration Rate > 60 , BUN/Creatinine Ratio 12, Glucose Level 114H, Lactic Acid Level 1.14, Calcium Level 9.4, Total Bilirubin 0.4, Aspartate Amino Transf (AST/SGOT) 14, Alanine Aminotransferase (ALT/SGPT) 13, Alkaline Phosphatase 140H, Total Protein 7.9, Albumin 4.4 03/31/17 05:12: White Blood Count 4.8, Red Blood Count 3.14L, Hemoglobin 9.6L, Hematocrit 30L, Mean Corpuscular Volume 96, Mean Corpuscular Hemoglobin 31, Mean Corpuscular Hemoglobin Concent 32, Red Cell Distribution Width 16.8H, Platelet Count 171, Mean Platelet Volume 9.9, Neutrophils (%) (Auto) 83H, Lymphocytes (%) (Auto) 9L , Monocytes (%) (Auto) 8, Eosinophils (%) (Auto) 0, Basophils (%) (Auto) 0, Neutrophils # (Auto) 4.0, Lymphocytes # (Auto) 0.4L, Monocytes # (Auto) 0.4, Eosinophils # (Auto) 0.0, Basophils # (Auto) 0.0, Sodium Level 139, Potassium Level 4.6, Chloride Level 101, Carbon Dioxide Level 31, Anion Gap 7, Blood Urea Nitrogen 13, Creatinine 0.59L, Estimat Glomerular Filtration Rate > 60, BUN/ Creatinine Ratio 22, Glucose Level 110H, Calcium Level 8.5, Total Bilirubin 0.2 , Aspartate Amino Transf (AST/SGOT) 8, Alanine Aminotransferase (ALT/SGPT) 9, Alkaline Phosphatase 113, Total Protein 6.0L, Albumin 3.5 04/01/17 07:18: White Blood Count 5.4, Red Blood Count 3.22L, Hemoglobin 9.8L, Hematocrit 31L, Mean Corpuscular Volume 95, Mean Corpuscular Hemoglobin 30, Mean Corpuscular Hemoglobin Concent 32, Red Cell Distribution Width 16.9H, Platelet Count 183, Mean Platelet Volume 9.6, Sodium Level 140, Potassium Level 4.1, Chloride Level 100, Carbon Dioxide Level 33H, Anion Gap 7, Blood Urea Nitrogen 9, Creatinine 0.64, Estimat Glomerular Filtration Rate > 60, BUN/Creatinine Ratio 14, Glucose Level 107H, Calcium Level 8.7 04/02/17 05:20: White Blood Count 5.5, Red Blood Count 3.32L, Hemoglobin 10.1L, Hematocrit 31L, Mean Corpuscular Volume 94, Mean Corpuscular Hemoglobin 30, Mean Corpuscular Hemoglobin Concent 32, Red Cell Distribution Width 16.6H, Platelet Count 170, Mean Platelet Volume 9.5, Sodium Level 140, Potassium Level 4.1, Chloride Level 100, Carbon Dioxide Level 31, Anion Gap 9, Blood Urea Nitrogen 11, Creatinine 0.62, Estimat Glomerular Filtration Rate > 60, BUN/Creatinine Ratio 18, Glucose Level 105, Calcium Level 8.7 Microbiology 03/30/17 Blood Culture - Preliminary, Resulted No growth 03/30/17 MRSA Screen - Final, Complete MRSA not isolated Laboratory Tests 03/30/17 05:05 03/31/17 05:12 04/01/17 07:18 04/02/17 05:20 Pending Labs Microbiology Date/Time Source Procedure Growth Status 03/30/17 06:34 Peripheral :Lab Indicates After Collectio Blood Culture - Preliminary No growth Resulted 03/30/17 05:05 Peripheral :Lab Indicates After Collectio Blood Culture - Preliminary No growth Resulted 03/30/17 08:20 Nasal MRSA Screen - Final MRSA not isolated Complete 03/30/17 05:12 Sputum Expectorated Gram Stain - Final Complete 03/30/17 05:12 Sputum Culture - Final Serratia Marcescens Complete Laboratory Tests 03/30/17 04:50: Urine Color YELLOW, Urine Clarity CLEAR, Urine pH 8, Urine Specific [place] 1.010, Urine Protein NEGATIVE, Urine Glucose (UA) NEGATIVE, Urine Ketones NEGATIVE, Urine Nitrite NEGATIVE, Urine Bilirubin NEGATIVE, Urine Urobilinogen NORMAL, Urine Leukocyte Esterase NEGATIVE, Urine RBC (Auto) NEGATIVE, Urine RBC NONE, Urine WBC NONE, Urine Squamous Epithelial Cells 0-2, Urine Crystals NONE, Urine Bacteria NEGATIVE, Urine Casts NONE, Urine Mucus NEGATIVE, Urine Culture Indicated NO 03/30/17 05:05: White Blood Count 7.5, Red Blood Count 3.81, Hemoglobin 11.7, Hematocrit 37, Mean Corpuscular Volume 96, Mean Corpuscular Hemoglobin 31, Mean Corpuscular Hemoglobin Concent 32, Red Cell Distribution Width 16.8, Platelet Count 217, Mean Platelet Volume 9.4, Neutrophils (%) (Auto) 72, Lymphocytes (%) (Auto) 13, Monocytes (%) (Auto) 15, Eosinophils (%) (Auto) 0, Basophils (%) (Auto) 0, Neutrophils # (Auto) 5.4, Lymphocytes # (Auto) 1.0, Monocytes # (Auto) 1.1, Eosinophils # (Auto) 0.0, Basophils # (Auto) 0.0, Prothrombin Time 12.6, INR Comment 0.9, Activated Partial Thromboplast Time 39, Sodium Level 138, Potassium Level 4.6, Chloride Level 95, Carbon Dioxide Level 34, Anion Gap 9, Blood Urea Nitrogen 8, Creatinine 0.66, Estimat Glomerular Filtration Rate > 60 , BUN/Creatinine Ratio 12, Glucose Level 114, Lactic Acid Level 1.14, Calcium Level 9.4, Total Bilirubin 0.4, Aspartate Amino Transf (AST/SGOT) 14, Alanine Aminotransferase (ALT/SGPT) 13, Alkaline Phosphatase 140, Total Protein 7.9, Albumin 4.4 03/31/17 05:12: White Blood Count 4.8, Red Blood Count 3.14, Hemoglobin 9.6, Hematocrit 30, Mean Corpuscular Volume 96, Mean Corpuscular Hemoglobin 31, Mean Corpuscular Hemoglobin Concent 32, Red Cell Distribution Width 16.8, Platelet Count 171, Mean Platelet Volume 9.9, Neutrophils (%) (Auto) 83, Lymphocytes (%) (Auto) 9, Monocytes (%) (Auto) 8, Eosinophils (%) (Auto) 0, Basophils (%) (Auto) 0, Neutrophils # (Auto) 4.0, Lymphocytes # (Auto) 0.4, Monocytes # (Auto) 0.4, Eosinophils # (Auto) 0.0, Basophils # (Auto) 0.0, Sodium Level 139, Potassium Level 4.6, Chloride Level 101, Carbon Dioxide Level 31, Anion Gap 7, Blood Urea Nitrogen 13, Creatinine 0.59, Estimat Glomerular Filtration Rate > 60, BUN/ Creatinine Ratio 22, Glucose Level 110, Calcium Level 8.5, Total Bilirubin 0.2, Aspartate Amino Transf (AST/SGOT) 8, Alanine Aminotransferase (ALT/SGPT) 9, Alkaline Phosphatase 113, Total Protein 6.0, Albumin 3.5 04/01/17 07:18: White Blood Count 5.4, Red Blood Count 3.22, Hemoglobin 9.8, Hematocrit 31, Mean Corpuscular Volume 95, Mean Corpuscular Hemoglobin 30, Mean Corpuscular Hemoglobin Concent 32, Red Cell Distribution Width 16.9, Platelet Count 183, Mean Platelet Volume 9.6, Sodium Level 140, Potassium Level 4.1, Chloride Level 100, Carbon Dioxide Level 33, Anion Gap 7, Blood Urea Nitrogen 9, Creatinine 0.64, Estimat Glomerular Filtration Rate > 60, BUN/Creatinine Ratio 14, Glucose Level 107, Calcium Level 8.7 04/02/17 05:20: White Blood Count 5.5, Red Blood Count 3.32, Hemoglobin 10.1, Hematocrit 31, Mean Corpuscular Volume 94, Mean Corpuscular Hemoglobin 30, Mean Corpuscular Hemoglobin Concent 32, Red Cell Distribution Width 16.6, Platelet Count 170, Mean Platelet Volume 9.5, Sodium Level 140, Potassium Level 4.1, Chloride Level 100, Carbon Dioxide Level 31, Anion Gap 9, Blood Urea Nitrogen 11, Creatinine 0.62, Estimat Glomerular Filtration Rate > 60, BUN/Creatinine Ratio 18, Glucose Level 105, Calcium Level 8.7 Radiology Reviewed 03/30/17 chest x-ray improved. 04/02/17 stable chest x-ray Discharge Home Medications: Active Scripts Active Lisinopril 10 Mg Tablet 20 Mg PO DAILY 1 MONTH CALLED TO HIRAL BETHEARAMCY--20MG TABS Q DAILY. #30 NO REFILLS Cefdinir 300 Mg Capsule 300 Mg PO BID Advair 250-50 Diskus (Fluticasone/Salmeterol) 1 Each Blst.w.dev 1 Puff IH BID LAST FILLED 01-25-17 Reported Proair Hfa (Albuterol Sulfate) 1 Puff Puff 2 Puff IH Q6H PRN 1 PUFF = 90 MCG Spiriva (Tiotropium [place]) 1 Inh Aerp 1 Cap IH HS Albuterol Sulfate 2.5 Mg/3 Ml Vial.neb 2.5 Mg NEB 5XD PRN Tegretol (Carbamazepine) 200 Mg Tablet 200 Mg PO 0200,0800,2300 Phenytoin Sodium Extended 100 Mg Capsule 100 Mg PO 0800,2300 Phenytoin Sodium Extended 100 Mg Capsule 200 Mg PO 1500 TAKES 2 (100MG) CAPSULES Gabapentin 600 Mg Tablet 600 Mg PO 0800,1500 Gabapentin 300 Mg Capsule 300 Mg PO 2300 Lipitor (Atorvastatin Calcium) 40 Mg Tablet 40 Mg PO 0200 Lamotrigine 100 Mg Tablet 100 Mg PO 1500,0200 Carbamazepine 200 Mg Tablet 400 Mg PO 1500 TAKES 2 (200MG) TABLETS Lamictal (Lamotrigine) 25 Mg Tablet 25 Mg PO 1500,2300 Mobic (Meloxicam) 15 Mg Tablet 15 Mg PO 1500 Instructions to patient/family Please see electronic discharge instructions given to patient. Clinical Quality Measures DVT/VTE Risk/Contraindication: Risk Factor Score Per Nursin RFS Level Per Nursing on Admit: 3=High AMANDEEP GENAO DO Apr 03, 2017 08:24
== END 2017-04-02 12:25 | disposition home or self-care (01) | DRG 192 ==
LOC: EDUNIT# 04:49 → ER 04:51 → ICU 07:03 → 4TH 18:00
PROVIDERS: ADMIT Internal Medicine; ATTEND Family Medicine
DX: J44.1 Chronic obstructive pulmonary disease with (acute) exacerbation (principal); G40.909 Epilepsy, unspecified, not intractable, without status epilepticus; Z87.891 Personal history of nicotine dependence; Z87.01 Personal history of pneumonia (recurrent); I10 Essential (primary) hypertension; E78.5 Hyperlipidemia, unspecified; G14 Postpolio syndrome; E78.00 Pure hypercholesterolemia, unspecified; D64.9 Anemia, unspecified
CPT/HCPCS: 36415; 71010; 71046; 80048; 80053; 81000; 83605; 85025; 85027; 85610; 85730; 87040; 87070; 87077; 87081; 87186; 87205; 94640; 94664; 94760

== ENCOUNTER 2017-04-06 08:08 | Inpatient (IN) | payer MEDICAID ==
[~2017-04-06] VITALS: Ht 188 cm; Wt 74.7 kg
--- OUTSIDE RECORDS SUMMARY | 2017-04-06 08:12 | XMS REPORT | Clinical Summary ---
Author Author [facility] Organization [facility] Address Unknown Phone Unavailable Care Team Providers Care Salvage Repairer Name Role Phone PCP Unavailable Source Comments Some departments are not documenting in the electronic medical record. If you do not see the information that you expected, contact Release of Information in the Health Information Management department at [phone] for further assistance in locating additional records.[facility] Allergies Active Allergy Reactions Severity [...] Date Seizures (HCC) 10/22/2013 Hemiparesis ([facility]) 10/22/2013 Asthma 10/22/2013 COPD (chronic obstructive pulmonary disease) ([facility]) 10/22/2013 Hyperlipidemia 10/22/2013 Weight loss 10/22/2013 [...]
[2017-04-06] MEDS ORDERED: RT-ALBUTEROL/IPRATROPIUM 3 ML (DUONEB) VIAL ONE (08:21)
[2017-04-06] MEDS ORDERED: RT-ALBUTEROL SULF 2.5 MG/3 ML PRE-MIX VIAL INH ONE (08:21)
[2017-04-06] MEDS ORDERED: RT-ALBUTEROL SULF 2.5 MG/3 ML PRE-MIX VIAL INH STA (08:22)
[2017-04-06 08:28] VITALS: BP 185/96
[2017-04-06] MEDS ORDERED: RT-ALBUTEROL/IPRATROPIUM 3 ML (DUONEB) VIAL INH ONE (08:30)
[2017-04-06 08:31] VITALS: BP 172/87
--- NOTE | 2017-04-06 08:41 | Diagnostic Imaging Report ---
INDICATION: Shortness of breath and cough. Comparison is made with prior examination from 04/02/2017. FINDINGS: There are bilateral perihilar infiltrates. There also appears to be some underlying venous congestion. Heart size is normal. There is no pleural effusion or pneumothorax. The mediastinum is unremarkable. IMPRESSION: Bilateral perihilar infiltrates which appear predominantly alveolar. This is likely pneumonia although some degree of underlying failure certainly cannot be excluded. Recommend clinical correlation. Dictated by: Dictated on workstation # [id number]
[2017-04-06 08:47] LABS: PROTHROMBIN TIME PATIENT 13.3 SEC (12.2-14.7)
[2017-04-06 08:56] LABS: ALANINE AMINOTRANSFERASE 11 U/L (0-55); ALBUMIN 3.9 GM/DL (3.2-4.5); ALKALINE PHOSPHATASE 110 U/L (40-136); BILIRUBIN,TOTAL 0.3 MG/DL (0.1-1.0); BUN/CREATININE RATIO 19; CALCIUM 8.5 MG/DL (8.5-10.1); CARBON DIOXIDE 29 MMOL/L (21-32); CHLORIDE 102 MMOL/L (98-107); CREATININE SERUM 0.63 MG/DL (0.60-1.30); GFR ESTIMATED > 60; GLUCOSE 105 MG/DL (70-105); POTASSIUM 4.5 MMOL/L (3.6-5.0); SODIUM 141 MMOL/L (135-145); TOTAL PROTEIN 6.9 GM/DL (6.4-8.2)
[2017-04-06 09:08] LABS: BASOPHILS % (AUTO) 1 % (0-10); EOSINOPHILS % (AUTO) 0 % (0-10); HEMATOCRIT 35 % (40-54); LYMPHOCYTES # (AUTO) 1.1 X 10^3 (1.0-4.0); LYMPHOCYTES % (AUTO) 19 % (12-44); MEAN CORPUSCULAR HEMOGLOBIN 31 PG (25-34); MEAN CORPUSCULAR HGB CONC 32 G/DL (32-36); MEAN CORPUSCULAR VOLUME 96 FL (80-99); MEAN PLATELET VOLUME 10.1 FL (7.4-10.4); MONOCYTES # (AUTO) 0.7 X 10^3 (0.0-1.0); MONOCYTES % (AUTO) 12 % (0-12); NEUTROPHILS # (AUTO) 4.2 X 10^3 (1.8-7.8); NEUTROPHILS % (AUTO) 69 % (42-75); PLATELET COUNT 182 10^3/uL (130-400); RED BLOOD COUNT 3.58 10^6/uL (4.35-5.85); RED CELL DISTRIBUTION WIDTH 17.1 % (10.0-14.5); WHITE BLOOD COUNT 6.2 10^3/uL (4.3-11.0)
--- NOTE | 2017-04-06 09:22 | ED Respiratory ---
General Chief Complaint: Respiratory Problems Stated Complaint: RESP DISTRESS Nursing Triage Note: PT ARRIVED PER EMS, PT IN RESP DISTRESS, PT ON C-PAP, PT ONLY ABLE TO SPEAK IN SHORT SENTENCES. PT HAS ONLY BEEN SICK FOR A FEW HOURS. SENT BY , EMS HAS STARTED IV #20 l AC, SOLUMEDROL 125MG IV GIVEN Source: patient, EMS Exam Limitations: no limitations History of Present Illness Time seen by provider: 08:18 Initial Comments Here by EMS in respiratory distress on CPAP. They arrived to his house and he is unable to speak more than one word sentences. Does have history of COPD and pneumonia. Recently hospitalized. EMS rapidly initiated CPAP on their arrival which did improve his symptoms. Solu-Medrol 125 mg IV was given. Patient was at home with home health nurse who is very concerned due to the amount of distress he was having. He does have home nebulizers but states they're not working. Denies current fever or chills. Denies nausea or vomiting. Main complaint is significant respiratory distress and chest tightness related to that. Further history from spouse reveals that the patient was discharged from the hospital a few days ago but they're unable to roll picker his medicines. Does have COPD and has had pneumonia. Last hospitalization was for COPD but the one prior was for pneumonia. He is not currently on antibiotics. He is not currently on steroids either as he does not have his medicines from the last hospitalization due to insurance problems that have apparently been fixed now. Timing/Duration: this morning Severity: moderate, severe Prior Episodes/Possible Cause: frequent episodes Modifying Factors: Improves With Albuterol Nebulizer, Improves With Oxygen, Improves With Rest Associated Symptoms: cough, No fever/chills, No nasal congestion, shortness of breath, wheezing Allergies and Home Medications Allergies Coded Allergies: aspirin (Unverified Allergy, Mild, DOES NOT WORK WELL W/ OTHER MEDS, ) ibuprofen (Unverified Allergy, Mild, 08/10/15) Home Medications Albuterol Sulfate 2.5 Mg/3 Ml Vial.neb, 2.5 MG NEB 5XD PRN for SHORTNESS OF BREATH, (Reported) Albuterol Sulfate 1 Puff Puff, 2 PUFF IH Q6H PRN for SHORTNESS OF BREATH, ( Reported) 1 PUFF = 90 MCG Atorvastatin Calcium 10 Mg Tablet, 10 MG PO 0200, (Reported) Carbamazepine 200 Mg Tablet, 200 MG PO 0200,0800,2300, (Reported) Cefdinir 300 Mg Capsule, 300 MG PO BID, (Reported) FILLED 04/02/17 #10 FOR A 5 DAY THERAPY Fluticasone/Salmeterol 1 Each Blst.w.dev, 1 PUFF IH BID, #1 LAST FILLED 01-25-17 Prescribed by: ARLETH GARRIDO on 03/03/17 1352 Gabapentin 300 Mg Capsule, 300 MG PO 2300, (Reported) Gabapentin 600 Mg Tablet, 600 MG PO 0800,1500, (Reported) Lamotrigine 100 Mg Tablet, 100 MG PO 1500,0200, (Reported) Lamotrigine 25 Mg Tablet, 25 MG PO 1500,2300, (Reported) Lisinopril 20 Mg Tablet, 20 MG PO DAILY, (Reported) Meloxicam 15 Mg Tablet, 15 MG PO 1500, (Reported) Pantoprazole Sodium 40 Mg Tablet.dr, 40 MG PO DAILY, (Reported) Phenytoin Sodium Extended 100 Mg Capsule, 200 MG PO 1500, (Reported) TAKES 2 (100MG) CAPSULES Phenytoin Sodium Extended 100 Mg Capsule, 100 MG PO 0800,2300, (Reported) Tiotropium [place] 1 Inh Aerp, 1 CAP IH HS, (Reported) Constitutional: see HPI, No chills, No fever EENTM: see HPI Respiratory: see HPI, cough, short of breath, wheezing Cardiovascular: No chest pain, No edema Gastrointestinal: No abdominal pain, No nausea, No vomiting Genitourinary: no symptoms reported Musculoskeletal: no symptoms reported All Other Systems Reviewed Negative Unless Noted: Yes Past Vcwqmfl-Yxtgob-Zhabka Hx Patient Social History Alcohol Use: Denies Use Recreational Drug Use: Yes (not current, 15 years ago-ETOH and PO drugs) Smoking Status: Former Smoker Type Used: Cigarettes Former Smoker, Quit: Mar 02, 2017 Recent Foreign Travel: No Contact w/Someone Who Travel: No Recent Infectious Disease Expo: No Recent Hopitalizations: Yes (RESP DISTRESS) Immunizations Up To Date PED Vaccines UTD: Yes Surgeries History of Surgeries: Yes Surgeries: Gallbladder Respiratory History of Respiratory Disorde: Yes (tobaccoism) Respiratory Disorders: Asthma, Sleep Apnea, COPD Currently Using CPAP: No Currently Using BIPAP: No Cardiovascular History of Cardiac Disorders: Yes Cardiac Disorders: High Cholesterol Neurological History of Neurological Disord: Yes (post polio syndrome with left-sided deficits) Neurological Disorders: Seizure Disorder Reproductive System Hx Reproductive Disorders: No Sexually Transmitted Disease: No HIV/AIDS: No Gastrointestinal History of Gastrointestinal Di: No Musculoskeletal History of Musculoskeletal Dis: No Musculoskeletal Disorders: Arthritis Endocrine History of Endocrine Disorders: No HEENT Loss of Vision: Denies Hearing Impairment: Denies Cancer History of Cancer: No Psychosocial History of Psychiatric Problem: No Integumentary History of Skin or Integumenta: No Blood Transfusions History of Blood Disorders: No Adverse Reaction to a Blood Tr: No Reviewed Nursing Assessment Reviewed/Agree w Nursing PMH: Yes Family Medical History Significant Family History: No Pertinent Family Hx, Heart Disease Family Medial History: Hypercholesterolemia 19 FATHER Hypertension 19 FATHER Physical Exam Vital Signs Vital Sign - Last 12Hours 04/06/17 04/06/17 08:08 08:28 Temp 97.8 Pulse 69 Resp 20 B/P (MAP) 185/96 (125) Pulse Ox 100 O2 Delivery NIV CPAP O2 Flow Rate 40.00 Capillary Refill : Less Than 3 Seconds General Appearance: WD/WN, moderate distress (respiratory) HEENT: PERRL/EOMI, pharynx normal Neck: full range of motion, supple Respiratory: respiratory distress, decreased breath sounds, accessory muscle use, wheezing Cardiovascular: regular rate, rhythm, no murmur Gastrointestinal: non tender, soft Extremities: non-tender, normal inspection Neurologic/Psychiatric: alert, oriented x 3 Skin: normal color, warm/dry Focused Exam Evaluation Lactate Level Laboratory Tests 04/06/17 08:20: Lactic Acid Level 0.90 Lactic Acid Level Laboratory Tests Test 04/06/17 08:20 Lactic Acid Level 0.90 MMOL/L (0.50-2.00) Date of ETT Placement: Mar 09, 2017 Time of ETT Placement: 1811 Laceration Repair : Suture Size: 5-0 Progress/Results/Core Measures Suspected Sepsis Recent Fever Within 48 Hours: No Infection Criteria Present: None New/Unexplained Altered Menta: No Sepsis Screen: No Definite Risk Sepsis Diagnosis: SIRS Temperature:97.8 Pulse: 70 Respiratory Rate: 18 Laboratory Tests 04/06/17 08:20: White Blood Count 6.2 Blood Pressure 172 /87 Mean: 125 Laboratory Tests 04/06/17 08:20: Lactic Acid Level 0.90 Laboratory Tests 04/06/17 08:20: Creatinine 0.63, INR Comment 1.0, Platelet Count 182, Total Bilirubin 0.3 Results/Orders Lab Results Laboratory Tests Test 04/06/17 08:20 04/06/17 11:05 Range/Units White Blood Count 6.2 4.3-11.0 10^3/uL Red Blood Count 3.58 L 4.35-5.85 10^6/uL Hemoglobin 11.0 L 13.3-17.7 G/DL Hematocrit 35 L 40-54 % Mean Corpuscular Volume 96 80-99 FL Mean Corpuscular Hemoglobin 31 25-34 PG Mean Corpuscular Hemoglobin Concent 32 32-36 G/DL Red Cell Distribution Width 17.1 H 10.0-14.5 % Platelet Count 182 130-400 10^3/uL Mean Platelet Volume 10.1 7.4-10.4 FL Neutrophils (%) (Auto) 69 42-75 % Lymphocytes (%) (Auto) 19 12-44 % Monocytes (%) (Auto) 12 0-12 % Eosinophils (%) (Auto) 0 0-10 % Basophils (%) (Auto) 1 0-10 % Neutrophils # (Auto) 4.2 1.8-7.8 X 10^3 Lymphocytes # (Auto) 1.1 1.0-4.0 X 10^3 Monocytes # (Auto) 0.7 0.0-1.0 X 10^3 Eosinophils # (Auto) 0.0 0.0-0.3 10^3/uL Basophils # (Auto) 0.0 0.0-0.1 10^3/uL Prothrombin Time 13.3 12.2-14.7 SEC INR Comment 1.0 0.8-1.4 Activated Partial Thromboplast Time 32 24-35 SEC Sodium Level 141 135-145 MMOL/L Potassium Level 4.5 3.6-5.0 MMOL/L Chloride Level 102 98-107 MMOL/L Carbon Dioxide Level 29 21-32 MMOL/L Anion Gap 10 5-14 MMOL/L Blood Urea Nitrogen 12 7-18 MG/DL Creatinine 0.63 0.60-1.30 MG/DL Estimat Glomerular Filtration Rate > 60 BUN/Creatinine Ratio 19 Glucose Level 105 70-105 MG/DL Lactic Acid Level 0.90 0.50-2.00 MMOL/L Calcium Level 8.5 8.5-10.1 MG/DL Total Bilirubin 0.3 0.1-1.0 MG/DL Aspartate Amino Transf (AST/SGOT) 13 5-34 U/L Alanine Aminotransferase (ALT/SGPT) 11 0-55 U/L Alkaline Phosphatase 110 40-136 U/L B-Type Natriuretic Peptide 390.3 H <100.0 PG/ML Total Protein 6.9 6.4-8.2 GM/DL Albumin 3.9 3.2-4.5 GM/DL Urine Color YELLOW Urine Clarity CLEAR Urine pH 8 5-9 Urine Specific [place] 1.015 L 1.016-1.022 Urine Protein 1+ H NEGATIVE Urine Glucose (UA) NEGATIVE NEGATIVE Urine Ketones NEGATIVE NEGATIVE Urine Nitrite NEGATIVE NEGATIVE Urine Bilirubin NEGATIVE NEGATIVE Urine Urobilinogen NORMAL NORMAL MG/DL Urine Leukocyte Esterase NEGATIVE NEGATIVE Urine RBC (Auto) NEGATIVE NEGATIVE Urine RBC 0 /HPF Urine WBC RARE /HPF Urine Crystals NONE /LPF Urine Bacteria FEW H /HPF Urine Casts NONE /LPF Urine Mucus NEGATIVE /LPF Urine Trichomonas FEW H /HPF Urine Culture Indicated NO Micro Results Microbiology 04/06/17 Influenza Types A,B Antigen (VY) - Final, Complete My Orders Orders - VANESSA GUTHRIE MD Cbc With Automated Diff (04/06/17 08:22) Comprehensive Metabolic Panel (04/06/17 08:22) Lactic Acid Analyzer (04/06/17 08:22) Blood Culture (04/06/17 08:22) Sputum Culture (04/06/17 08:22) Ua Culture If Indicated (04/06/17 08:22) Protime With Inr (04/06/17 08:22) Partial Thromboplastin Time (04/06/17 08:22) Chest 1 View, Ap/Pa Only (04/06/17 08:22) O2 (04/06/17 08:22) Vital Signs Adult Sepsis Patie Q1H (04/06/17 08:22) Remove Rings In Anticipation O (04/06/17 08:22) Influenza A And B Antigens (04/06/17 08:22) Albuterol Pre-Mix Nebs (Rt) (Proventil (04/06/17 08:22) Albuterol/Ipra Inhalation Soln (Duoneb I (04/06/17 08:30) Svn Sm Volume Nebulizer Rt-Rfs (04/06/17 08:22) Svn Sm Volume Nebulizer Rt-Rfs (04/06/17 08:22) Albuterol Pre-Mix Nebs (Rt) (Proventil (04/06/17 08:21) Albuterol/Ipra Inhalation Soln (Duoneb I (04/06/17 08:21) BNP (04/06/17 09:15) Piperacillin Sodium/Tazobactam (Zosyn Vi (04/06/17 11:00) Piperacillin Sodium/Tazobactam (Zosyn Vi (04/06/17 10:48) Ns (Ivpb) (Sodium Chloride 0.9% Ivpb Bag (04/06/17 10:48) Medications Given in ED Current Medications Medications Dose Ordered Sig/Porfirio Route Start Time Stop Time Status Last Admin Dose Admin Albuterol Sulfate 2.5 mg STK-MED ONCE INH 04/06/17 08:21 04/06/17 08:24 DC 04/06/17 08:27 2.5 MG Albuterol/ Ipratropium 3 ml STK-MED ONCE .ROUTE 04/06/17 08:21 04/06/17 08:24 DC 04/06/17 08:27 3 ML Piperacillin Sod/ Tazobactam Sod 4.5 gm ONCE ONCE IV 04/06/17 11:00 04/06/17 11:01 DC 04/06/17 10:57 4.5 GM Vital Signs/I&O Vital Sign - Last 12Hours 04/06/17 04/06/17 04/06/17 04/06/17 08:08 08:08 08:28 08:31 Temp 97.8 Pulse 69 79 70 Resp 20 18 18 B/P (MAP) 185/96 (125) Pulse Ox 100 100 100 99 O2 Delivery NIV CPAP NIV/Bilevel O2 Flow Rate 40.00 40.00 04/06/17 11:12 Temp 97.8 Pulse 72 Resp 22 Pulse Ox 96 O2 Delivery NIV CPAP O2 Flow Rate 3.00 Capillary Refill : Less Than 3 Seconds Blood Pressure Mean: 125 Progress Note : Progress Note Seen and evaluated. Arrives on CPAP from EMS and this was converted to BiPAP. Labs, UA, chest x-ray, blood cultures and lactic acid ordered. BMP ordered. Monitor patient. Patient did receive albuterol and DuoNeb treatments in line with BiPAP. 1030: Patient is doing better and is actually now off BiPAP. Chest x-ray is concerning for bilateral lower lobe pneumonia. Who this is mixed picture with COPD as well. He is requiring 3 L of O2 to keep his sats greater than 92 percent. Normally on 2 L. Patient will require therapy regarding the pneumonia. Initially was contemplating going home but understands the challenges especially given his advanced lung disease. Patient decided that he would be better off staying for which I agree. BNP was slightly elevated but consistent with previous admissions when in respiratory failure. I think the elevated BNP is related to the difficulty in breathing and not the cause. 1045: I did discuss the case with Dr. Swenson and she accepts patient for admission, in-patient status geographic information scientist for Dr. Genao. Zosyn 4.5 g IV initiated. Patient did receive Solu-Medrol via EMS and we will continue that inpatient. We will continue with RT mat protocol as well. Patient and family agree with plan. Diagnostic Imaging Diagonstic Imaging: Xray Plain Films/CT/US/NM/MRI: chest Comments NAME: CR [facility] REC#: [id number] PT STATUS: REG ER : 1955 PHYSICIAN: VANESSA GUTHRIE MD ADMIT DATE: 04/06/17/ER Signed Date of Exam: 04/06/17 CHEST 1 VIEW, AP/PA ONLY INDICATION: Shortness of breath and cough. Comparison is made with prior examination from 04/02/2017. FINDINGS: There are bilateral perihilar infiltrates. There also appears to be some underlying venous congestion. Heart size is normal. There is no pleural effusion or pneumothorax. The mediastinum is unremarkable. IMPRESSION: Bilateral perihilar infiltrates which appear predominantly alveolar. This is likely pneumonia although some degree of underlying failure certainly cannot be excluded. Recommend clinical correlation. Dictated by: Dictated on workstation # [id number] Dict: 04/06/17833 Trans: 04/06/17849 Interpreted by: LIZY GO MD Electronically signed by: LIZY GO MD 04/06/17849 Reviewed: Reviewed by Me Departure Communication (Admissions) Time/Spoke to Admitting Phy: 10:45 Impression Impression: Primary Impression: Pneumonia of both lower lobes Qualified Codes: J18.9 - Pneumonia, unspecified organism Additional Impression: COPD with acute exacerbation Disposition: ADMITTED INPATIENT Condition: Stable Admissions Decision to Admit Reason: Admit from ER (General) Decision to Admit/Date: Apr 06, 2017 Time/Decision to Admit Time: 10:45 Departure-Patient Inst. Referrals: AMANDEEP GENAO DO (PCP/Family) Primary Care Physician VANESSA GUTHRIE MD Apr 06, 2017 09:22
[2017-04-06] MEDS ORDERED: NS (IVPB) 100 ML ONE (10:48)
[2017-04-06] MEDS ORDERED: PIPERACILLIN/TAZO 4.5 GM VIAL (ZOSYN) IV ONE ×2 (10:48→11:00)
[2017-04-06 11:12] LABS: BILIRUBIN,URINE NEGATIVE (NEGATIVE); CLARITY,URINE CLEAR; COLOR,URINE YELLOW; GLUCOSE, URINE (UA) NEGATIVE (NEGATIVE); KETONES,URINE NEGATIVE (NEGATIVE); LEUKOCYTE ESTERASE ,URINE NEGATIVE (NEGATIVE); NITRITE,URINE NEGATIVE (NEGATIVE); PH,URINE 8 (5-9); PROTEIN,URINE 1+ (NEGATIVE); UROBILINOGEN,URINE NORMAL (NORMAL)
--- OUTSIDE RECORDS SUMMARY | 2017-04-06 11:19 | XMS REPORT | Clinical Summary ---
Author Author [facility] Organization [facility] Address Unknown Phone Unavailable Care Team Providers Care Director Of Patient Safety Name Role Phone PCP Unavailable Source Comments Some departments are not documenting in the electronic medical record. If you do not see the information that you expected, contact Release of Information in the Health Information Management department at [phone] for further assistance in locating additional records.[facility] Allergies Active Allergy Reactions Severity Noted Date [...] Problem Noted Date Seizures (HCC) 10/22/2013 Hemiparesis ([facility]) 10/22/2013 Asthma 10/22/2013 COPD (chronic obstructive pulmonary disease) ([facility]) 10/22/2013 Hyperlipidemia 10/22/2013 Weight loss [...]
[2017-04-06 11:26] LABS: BACTERIA,URINE FEW /HPF; RBC,URINE 0 /HPF; WBC,URINE RARE /HPF
[2017-04-06 11:34] LABS: TRICHOMONAS,URINE FEW /HPF
[2017-04-06] MEDS ORDERED: PANT40TA3 PO (11:48)
[2017-04-06] MEDS ORDERED: LISI-552 PO (11:48)
--- NOTE | 2017-04-06 11:50 | History & Physical-Hospitalist ---
HPI History of Present Illness: HPI/Chief Complaint CC: Bilateral pneumonia HPI: This is a 61-year-old white male known to me from last weekend when he was in the hospital for acute exacerbation of COPD 2 weeks after a pneumonia and recent smoking cessation who presents to the emergency room with shortness of breath requiring BiPAP after EMS was called and patient was not breathing he did not require intubation or any other aggressive steps and now he is off BiPAP very comfortable and doing much better. Apparently he had not filled any of his home medications upon discharge including steroids and was having a real difficult time at home after 2 days post discharge with cough and shortness of breath. At this current time patient is asking for his home dose Neurontin for neuropathy and a suction wand device for when he coughs up productive sputum. Source: patient Exam Limitations: no limitations Date Seen 04/06/17 Time Seen by Provider: 11:30 Attending Physician Micky Feng DO PCP Micky Feng DO Referring Physician Date of Admission Apr 06, 2017 at 11:15 Home Medications & Allergies Home Medications Reviewed patient Home Medication Reconciliation Form Allergies Allergies Coded Allergies aspirin (Unverified Allergy, Mild, DOES NOT WORK WELL W/ OTHER MEDS, 08/10/15) ibuprofen (Unverified Allergy, Mild, 08/10/15) Past Uzsvahv-Yswgqq-Eehusz Hx Patient Social History Employed/Student: unemployed Alcohol Use: Denies Use Recreational Drug Use: Yes (not current, 15 years ago-ETOH and PO drugs) Smoking Status: Former Smoker Former Smoker, Quit: Mar 02, 2017 Type Used: Cigarettes Recent Foreign Travel: No Contact w/other who traveled: No Recent Hopitalizations: Yes (RESP DISTRESS) Recent Infectious Disease Expo: No Immunizations Up To Date Pediatric: Yes Surgeries Yes Gallbladder Respiratory Yes (tobaccoism) COPD, Emphysema, Pneumonia Currently Using CPAP: No Currently Using BIPAP: No Cardiovascular Yes High Cholesterol 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) Seizure Disorder Reproductive System Hx Reproductive Disorders: No Sexually Transmitted Disease: No HIV/AIDS: No Gastrointestinal No Musculoskeletal No Arthritis Endocrine History of Endocrine Disorders: No HEENT Loss of Vision: Denies Hearing Impairment: Denies Cancer No Psychosocial History of Psychiatric Problem: No Integumentary History of Skin or Integumenta: No Blood Transfusions History of Blood Disorders: No Adverse Reaction to a Blood Tr: No Reviewed Nursing Assessment Reviewed/Agree w Nursing PMH: Yes Family Medical History Significant Family History: No Pertinent Family Hx, Heart Disease Family Hx: Hypercholesterolemia 19 FATHER Hypertension 19 FATHER Review of Systems Constitutional: see HPI, chills, dizziness, fever, weakness EENTM: no symptoms reported Respiratory: cough, dyspnea on exertion, short of breath, wheezing Gastrointestinal: no symptoms reported Genitourinary: no symptoms reported Musculoskeletal: no symptoms reported Skin: no symptoms reported Psychiatric/Neurological: No Symptoms Reported All Other Systems Reviewed Negative Unless Noted: Yes Physical Exam Physical Exam Vital Signs Vital Sign - Last 12Hours 04/06/17 04/06/17 08:08 08:28 Temp 97.8 Pulse 69 Resp 20 B/P (MAP) 185/96 (125) Pulse Ox 100 O2 Delivery NIV CPAP O2 Flow Rate 40.00 Capillary Refill : Less Than 3 Seconds General Appearance: No Apparent Distress, WD/WN, Chronically ill, Thin Eyes: Bilateral Eye Normal Inspection, Bilateral Eye PERRL HEENT: PERRL/EOMI, Normal ENT Inspection, Pharynx Normal Neck: Full Range of Motion, Normal Inspection, Non Tender, Supple, Carotid Bruit Respiratory: Chest Non Tender, No Accessory Muscle Use, No Respiratory Distress , Crackles, Decreased Breath Sounds, Wheezing Cardiovascular: Regular Rate, Rhythm, No Edema, No Gallop, No JVD, No Murmur, Normal Peripheral Pulses Gastrointestinal: Normal Bowel Sounds, No Organomegaly, No Pulsatile Mass, Non Tender, Soft Back: Normal Inspection, No CVA Tenderness, No Vertebral Tenderness Extremity: Normal Capillary Refill, Normal Inspection, Normal Range of Motion, Non Tender, No Calf Tenderness, No Pedal Edema Neurologic/Psychiatric: Alert, Oriented x3, No Motor/Sensory Deficits, Normal Mood/Affect Skin: Normal Color, Warm/Dry Lymphatic: No Adenopathy Results Results/Procedures Lab Laboratory Tests 04/06/17 08:20 Assessment/Plan Admission Diagnosis Assessment: Acute respiratory failure upon EMS arrival at home. BiPAP and now off BiPAP doing much better History of severe COPD Recent hospital stay for pneumonia 3 weeks ago and acute exacerbation of COPD one week ago Neuropathy severe Elevated BNP Assessment and Plan Plan: Maintain Zosyn empirically Steroids 90mg IV Q 6hrs Home meds once reconciled O2 Nebs Continue smoking cessation JAMIR ELLISON DO Apr 06, 2017 11:50
[2017-04-06] MEDS ORDERED: LAMO25TA PO (11:58)
[2017-04-06] MEDS ORDERED: MELO15TA39 PO (11:58)
[2017-04-06] MEDS ORDERED: ATOR10TA66 PO (11:58)
[2017-04-06] MEDS ORDERED: CEFD300C3 PO (12:06)
[2017-04-06 12:07] VITALS: BP 185/96
[2017-04-06] MEDS ORDERED: CATHETER FLUSH 10 ML SYR IV PRN (12:15)
[2017-04-06] MEDS ORDERED: RT-ALBUTEROL/IPRATROPIUM 3 ML (DUONEB) VIAL INH PRN (12:15)
[2017-04-06] MEDS ORDERED: RT-ALBUTEROL SULF 2.5 MG/3 ML PRE-MIX VIAL INH PRN ×2 (12:30→12:45)
[2017-04-06] MEDS ORDERED: RT-ALBUTEROL HFA (VENTOLIN) PER PUFF IH PRN (12:30)
[2017-04-06] MEDS: NS IV 1000 ML 1,000 ML IV SCH (12:33)
[2017-04-06] MEDS: methylPREDNISolone 125 MG (Solu-MEDROL) VIAL IV SCH ×3 (12:34→23:02)
[2017-04-06] MEDS: FUROSEMIDE 40 MG/4 ML INJ (LASIX) IVP SCH (12:34)
[2017-04-06] MEDS ORDERED: CATHETER FLUSH 10 ML SYR IV SCH (14:00)
[2017-04-06] MEDS ORDERED: NON-FORMULARY MEDICATION 1 EA EA (Meloxicam 15 MG) PO SCH (15:00)
[2017-04-06] MEDS: RT-ALBUTEROL/IPRATROPIUM 3 ML (DUONEB) VIAL INH SCH ×3 (15:24→22:10)
[2017-04-06] MEDS: lamoTRIgine 25 MG (LaMICtal) TAB PO SCH ×2 (15:26→23:01)
[2017-04-06] MEDS: MELOXICAM 7.5 MG (MOBIC) TABLET PO SCH (15:26)
[2017-04-06] MEDS: GABAPENTIN 600 MG (NEURONTIN) TAB PO SCH (15:26)
[2017-04-06] MEDS: PHENYTOIN 100 MG (DILANTIN) CAP PO SCH ×2 (15:27→23:02)
[2017-04-06 16:00] VITALS: BP 169/74
[2017-04-06] MEDS: PIPERACILLIN/TAZOBACTAM 4.5 GM/NS 100 ML IVPB IV SCH ×2 (16:58)
[2017-04-06 19:16] VITALS: BP 153/71
[2017-04-06] MEDS: RT-ADVAIR HFA 115/21 MCG PER PUFF IH SCH (19:37)
[2017-04-06] MEDS: UMECLIDINIUM BROMIDE (INCRUSE ELLIPTA) 7'S IH SCH (19:42)
[2017-04-06] MEDS ORDERED: TIOTROPIUM BROMIDE (SPIRIVA) 5'S INHALER IH SCH (21:00)
[2017-04-06] MEDS ORDERED: NON-FORMULARY MEDICATION 1 EA EA (Fluticasone/Salmeterol (Advair 250-50 Diskus) 1 PUFF) IH SCH (21:00)
[2017-04-06] MEDS ORDERED: CEFDINIR 300 MG (OMNICEF) CAP PO SCH (21:00)
[2017-04-06] MEDS: GABAPENTIN 300 MG (NEURONTIN) CAP PO SCH (23:01)
[2017-04-06] MEDS: carBAMazepine 200 MG (TEGretol) TAB PO SCH (23:02)
[2017-04-07] MEDS: PIPERACILLIN/TAZOBACTAM 4.5 GM/NS 100 ML IVPB IV SCH ×6 (00:01→16:22)
[2017-04-07 00:35] VITALS: BP 138/66
[2017-04-07] MEDS: ATORVASTATIN 10 MG (LIPITOR) TABLET PO SCH (01:48)
[2017-04-07] MEDS: carBAMazepine 200 MG (TEGretol) TAB PO SCH ×3 (01:48→22:51)
[2017-04-07] MEDS: RT-ALBUTEROL/IPRATROPIUM 3 ML (DUONEB) VIAL INH SCH ×6 (02:38→21:26)
[2017-04-07 04:09] VITALS: BP 134/68
[2017-04-07] MEDS: PANTOPRAZOLE 40 MG (PROTONIX) TAB PO SCH (05:26)
[2017-04-07] MEDS: methylPREDNISolone 125 MG (Solu-MEDROL) VIAL IV SCH ×4 (05:26→23:54)
[2017-04-07 05:46] LABS: BASOPHILS % (AUTO) 0 % (0-10); EOSINOPHILS % (AUTO) 0 % (0-10); LYMPHOCYTES % (AUTO) 7 % (12-44); MEAN CORPUSCULAR HEMOGLOBIN 30 PG (25-34); MEAN PLATELET VOLUME 8.7 FL (7.4-10.4); MONOCYTES % (AUTO) 7 % (0-12); NEUTROPHILS # (AUTO) 5.4 X 10^3 (1.8-7.8); NEUTROPHILS % (AUTO) 86 % (42-75); PLATELET COUNT 165 10^3/uL (130-400); RED BLOOD COUNT 3.33 10^6/uL (4.35-5.85); RED CELL DISTRIBUTION WIDTH 15.7 % (10.0-14.5); WHITE BLOOD COUNT 6.2 10^3/uL (4.3-11.0)
[2017-04-07 05:47] LABS: LYMPHOCYTES # (AUTO) 0.4 X 10^3 (1.0-4.0); MONOCYTES # (AUTO) 0.4 X 10^3 (0.0-1.0)
[2017-04-07 06:07] LABS: BAND NEUTROPHILS 0 %; BASOPHILS % (MANUAL) 0 %; EOSINOPHILS % (MANUAL) 0 %; HYPOCHROMASIA SLIGHT; LYMPHOCYTES % (MANUAL) 8 %; MONOCYTES % (MANUAL) 4 %; NEUTROPHILS % (MANUAL) 85 %; POIKILOCYTOSIS SLIGHT; REACTIVE LYMPHOCYTES 3 %; ROULEAUX SLIGHT; TARGET CELLS SLIGHT
[2017-04-07 07:06] LABS: ALANINE AMINOTRANSFERASE 10 U/L (0-55); ALBUMIN 3.5 GM/DL (3.2-4.5); ALKALINE PHOSPHATASE 106 U/L (40-136); BILIRUBIN,TOTAL 0.2 MG/DL (0.1-1.0); BUN/CREATININE RATIO 20; CALCIUM 8.6 MG/DL (8.5-10.1); CARBON DIOXIDE 29 MMOL/L (21-32); CHLORIDE 100 MMOL/L (98-107); CREATININE SERUM 0.65 MG/DL (0.60-1.30); GFR ESTIMATED > 60; GLUCOSE 149 MG/DL (70-105); POTASSIUM 3.9 MMOL/L (3.6-5.0); SODIUM 140 MMOL/L (135-145); TOTAL PROTEIN 6.3 GM/DL (6.4-8.2)
[2017-04-07] MEDS: RT-ADVAIR HFA 115/21 MCG PER PUFF IH SCH ×2 (07:33→18:37)
[2017-04-07] MEDS: UMECLIDINIUM BROMIDE (INCRUSE ELLIPTA) 7'S IH SCH (07:33)
[2017-04-07 08:00] VITALS: BP 169/74
[2017-04-07] MEDS: GABAPENTIN 600 MG (NEURONTIN) TAB PO SCH ×2 (08:27→16:21)
[2017-04-07] MEDS: lisINopril 20 MG (ZESTRIL) TAB PO SCH (08:27)
[2017-04-07] MEDS: PHENYTOIN 100 MG (DILANTIN) CAP PO SCH ×3 (08:27→22:51)
[2017-04-07] MEDS: FUROSEMIDE 40 MG/4 ML INJ (LASIX) IVP SCH (08:28)
[2017-04-07] MEDS ORDERED: INFLUENZA TRIvalent 2017-2018 0.5 ML/45 MCG SYR IM ONE (08:30)
--- NOTE | 2017-04-07 08:35 | Progress Note (SOAP) ---
Subjective Time Seen by Provider: 08:30 Subjective/Events-last exam patient feeling better today. Patient did not reach is been down and was not able to afford to get his medicine. COPD with acute exacerbation. Pneumonia. Seizures. Objective Exam Vital Signs Date Time Temp Pulse Resp B/P (MAP) Pulse Ox O2 Delivery O2 Flow Rate FiO2 04/07/17 08:00 98.0 59 20 169/74 (105) 95 Nasal Cannula 3.00 04/07/17 07:28 94 Nasal Cannula 3.00 04/07/17 04:09 98.1 65 16 134/68 (90) 97 Nasal Cannula 3.00 04/07/17 02:38 90 Nasal Cannula 3.00 04/07/17 00:35 97.8 65 16 138/66 (90) 94 Nasal Cannula 3.00 04/06/17 22:10 95 Nasal Cannula 4.00 04/06/17 20:30 Nasal Cannula 4.00 04/06/17 19:45 96 Nasal Cannula 4.00 04/06/17 19:42 Nasal Cannula 4.00 04/06/17 19:37 93 Nasal Cannula 4.00 04/06/17 19:16 98.9 70 18 153/71 (98) 97 Nasal Cannula 3.00 04/06/17 16:00 98.8 70 20 169/74 (105) 91 Nasal Cannula 3.00 04/06/17 15:25 95 Nasal Cannula 4.00 04/06/17 12:07 72 96 32 04/06/17 11:35 91 Nasal Cannula 4.00 04/06/17 11:12 97.8 72 22 96 NIV CPAP 3.00 04/06/17 08:31 70 18 99 40.00 I & O 04/07/17 06:59 Intake Total 1820 ml Balance 1820 ml Capillary Refill : Less Than 3 Seconds General Appearance: No Apparent Distress, Thin HEENT: Normal ENT Inspection Neck: Full Range of Motion, Non Tender Respiratory: No Accessory Muscle Use, No Respiratory Distress, Decreased Breath Sounds Cardiovascular: Regular Rate, Rhythm, No Murmur Gastrointestinal: non tender, soft Results Lab Laboratory Tests 04/06/17 11:05: Urine Color YELLOW, Urine Clarity CLEAR, Urine pH 8, Urine Specific [place] 1.015L, Urine Protein 1+H, Urine Glucose (UA) NEGATIVE, Urine Ketones NEGATIVE, Urine Nitrite NEGATIVE, Urine Bilirubin NEGATIVE, Urine Urobilinogen NORMAL, Urine Leukocyte Esterase NEGATIVE, Urine RBC (Auto) NEGATIVE, Urine RBC 0, Urine WBC RARE, Urine Crystals NONE, Urine Bacteria FEWH, Urine Casts NONE, Urine Mucus NEGATIVE, Urine Trichomonas FEWH, Urine Culture Indicated NO 04/07/17 05:25: White Blood Count 6.2, Red Blood Count 3.33L, Hemoglobin 10.0L, Mean Corpuscular Hemoglobin 30, Red Cell Distribution Width 15.7H, Platelet Count 165 , Mean Platelet Volume 8.7, Neutrophils (%) (Auto) 86H, Lymphocytes (%) (Auto) 7L, Monocytes (%) (Auto) 7, Eosinophils (%) (Auto) 0, Basophils (%) (Auto) 0, Neutrophils # (Auto) 5.4, Lymphocytes # (Auto) 0.4L, Monocytes # (Auto) 0.4, Eosinophils # (Auto) 0.0, Basophils # (Auto) 0.0, Neutrophils % (Manual) 85, Lymphocytes % (Manual) 8, Monocytes % (Manual) 4, Eosinophils % (Manual) 0, Basophils % (Manual) 0, Band Neutrophils 0, Reactive Lymphocytes 3, Hypochromasia SLIGHT, Poikilocytosis SLIGHT, Target Cells SLIGHT, Rouleau SLIGHT , Sodium Level 140, Potassium Level 3.9, Chloride Level 100, Carbon Dioxide Level 29, Anion Gap 11, Blood Urea Nitrogen 13, Creatinine 0.65, Estimat Glomerular Filtration Rate > 60, BUN/Creatinine Ratio 20, Glucose Level 149H, Calcium Level 8.6, Total Bilirubin 0.2, Aspartate Amino Transf (AST/SGOT) 9, Alanine Aminotransferase (ALT/SGPT) 10, Alkaline Phosphatase 106, Total Protein 6.3L, Albumin 3.5 Microbiology 04/06/17 Influenza Types A,B Antigen (VY) - Final, Complete Assessment/Plan Assessment/Plan Assess & Plan/Chief Complaint COPD with acute exacerbation. Pneumonia. Seizures. Not taking medications due to no money and still in spin down Clinical Quality Measures DVT/VTE Risk/Contraindication: Risk Factor Score Per Nursin RFS Level Per Nursing on Admit: 4+=Very High AMANDEEP GENAO DO Apr 07, 2017 08:35
[2017-04-07 10:13] LABS: HEMATOCRIT 34 % (40-54); MEAN CORPUSCULAR HGB CONC 30 G/DL (32-36); MEAN CORPUSCULAR VOLUME 100 FL (80-99)
[2017-04-07] MEDS: NS IV 1000 ML 1,000 ML IV SCH ×2 (10:24→12:13)
[2017-04-07 15:27] VITALS: BP 171/76
--- NOTE | 2017-04-07 15:54 | Diagnostic Imaging Report ---
INDICATION: Pneumonia. COMPARISON: 04/06/2017. FINDINGS: The heart size is stable. There has been interval improvement in the bibasilar infiltrates. There is mild venous congestion. There is no pleural effusion or pneumothorax. The mediastinum is unremarkable. IMPRESSION: Interval improvement in the bibasilar pulmonary infiltrates. Mild central pulmonary venous congestion. Dictated by: Dictated on workstation # [id number]
[2017-04-07] MEDS: MELOXICAM 7.5 MG (MOBIC) TABLET PO SCH (16:22)
[2017-04-07] MEDS: lamoTRIgine 25 MG (LaMICtal) TAB PO SCH ×2 (16:22→22:51)
[2017-04-07] MEDS: GABAPENTIN 300 MG (NEURONTIN) CAP PO SCH (22:51)
[2017-04-08 00:56] VITALS: BP 179/74
[2017-04-08] MEDS: PIPERACILLIN/TAZOBACTAM 4.5 GM/NS 100 ML IVPB IV SCH ×4 (00:56→08:57)
[2017-04-08] MEDS: RT-ALBUTEROL/IPRATROPIUM 3 ML (DUONEB) VIAL INH SCH ×3 (01:45→11:15)
[2017-04-08] MEDS: ATORVASTATIN 10 MG (LIPITOR) TABLET PO SCH (01:58)
[2017-04-08] MEDS: carBAMazepine 200 MG (TEGretol) TAB PO SCH ×2 (01:59→08:57)
[2017-04-08] MEDS: PANTOPRAZOLE 40 MG (PROTONIX) TAB PO SCH (05:28)
[2017-04-08] MEDS: methylPREDNISolone 125 MG (Solu-MEDROL) VIAL IV SCH ×2 (05:28→12:13)
[2017-04-08 06:47] LABS: BASOPHILS % (AUTO) 0 % (0-10); EOSINOPHILS % (AUTO) 0 % (0-10); HEMATOCRIT 31 % (40-54); HEMOGLOBIN 10.1 G/DL (13.3-17.7); LYMPHOCYTES # (AUTO) 0.5 X 10^3 (1.0-4.0); LYMPHOCYTES % (AUTO) 8 % (12-44); MEAN CORPUSCULAR HEMOGLOBIN 31 PG (25-34); MEAN CORPUSCULAR HGB CONC 33 G/DL (32-36); MEAN CORPUSCULAR VOLUME 94 FL (80-99); MEAN PLATELET VOLUME 10.2 FL (7.4-10.4); MONOCYTES # (AUTO) 0.5 X 10^3 (0.0-1.0); MONOCYTES % (AUTO) 8 % (0-12); NEUTROPHILS # (AUTO) 5.6 X 10^3 (1.8-7.8); NEUTROPHILS % (AUTO) 85 % (42-75); PLATELET COUNT 171 10^3/uL (130-400); RED BLOOD COUNT 3.25 10^6/uL (4.35-5.85); RED CELL DISTRIBUTION WIDTH 16.8 % (10.0-14.5); WHITE BLOOD COUNT 6.6 10^3/uL (4.3-11.0)
[2017-04-08] MEDS: RT-ADVAIR HFA 115/21 MCG PER PUFF IH SCH (07:03)
[2017-04-08 07:11] LABS: BUN/CREATININE RATIO 14; CALCIUM 8.6 MG/DL (8.5-10.1); CARBON DIOXIDE 30 MMOL/L (21-32); CHLORIDE 99 MMOL/L (98-107); CREATININE SERUM 0.64 MG/DL (0.60-1.30); GFR ESTIMATED > 60; GLUCOSE 162 MG/DL (70-105); POTASSIUM 4.1 MMOL/L (3.6-5.0); SODIUM 139 MMOL/L (135-145)
--- NOTE | 2017-04-08 07:53 | Diagnostic Imaging Report ---
INDICATION: Cough and pneumonia. COMPARISON: 04/07/2017. FINDINGS: Patchy opacities in the left lung base are stable to mildly improved. No new airspace disease. No pleural effusion or pneumothorax. Normal cardiomediastinal silhouette. IMPRESSION: Stable to mild improvement in left basilar patchy pulmonary opacities which may be due to resolving pneumonia as per patient's history. Dictated by: Dictated on workstation # [id number]
[2017-04-08 08:00] VITALS: BP 164/77
[2017-04-08] MEDS ORDERED: UMECLIDINIUM BROMIDE (INCRUSE ELLIPTA) 7'S IH SCH (08:00)
--- NOTE | 2017-04-08 08:01 | Progress Note (SOAP) ---
Subjective Time Seen by Provider: 08:00 Subjective/Events-last exam feeling better. Patient breathing better. Patient wants to go home. Patient has hypertension. To add Norvasc. Patient met spend down s o he can get his medicines now. Patient's noncompliance due to lack of money Objective Exam Vital Signs Date Time Temp Pulse Resp B/P (MAP) Pulse Ox O2 Delivery O2 Flow Rate FiO2 04/08/17 07:09 95 Nasal Cannula 3.00 04/08/17 07:08 95 Nasal Cannula 3.00 04/08/17 07:05 95 Nasal Cannula 3.00 04/08/17 01:47 98 Nasal Cannula 3.00 04/08/17 00:56 98.5 68 19 179/74 (109) 98 Nasal Cannula 3.00 04/07/17 21:28 94 Nasal Cannula 3.00 04/07/17 20:53 Nasal Cannula 3.00 04/07/17 18:39 96 Nasal Cannula 3.00 04/07/17 15:27 98.3 71 20 171/76 (107) 96 Nasal Cannula 3.00 04/07/17 11:13 96 Nasal Cannula 3.00 04/07/17 09:00 Nasal Cannula 4.00 04/07/17 08:00 98.0 59 20 169/74 (105) 95 Nasal Cannula 3.00 I & O 04/08/17 07:00 Intake Total 3920 ml Output Total 150 ml Balance 3770 ml Capillary Refill : Less Than 3 Seconds General Appearance: No Apparent Distress, Thin HEENT: Normal ENT Inspection Neck: Full Range of Motion, Normal Inspection Respiratory: Chest Non Tender, No Accessory Muscle Use, No Respiratory Distress , Decreased Breath Sounds Cardiovascular: Regular Rate, Rhythm, No Murmur Gastrointestinal: non tender, soft Results Lab Laboratory Tests 04/08/17 06:28 Laboratory Tests 04/08/17 06:28: White Blood Count 6.6, Red Blood Count 3.25L, Hemoglobin 10.1L, Hematocrit 31L, Mean Corpuscular Volume 94, Mean Corpuscular Hemoglobin 31, Mean Corpuscular Hemoglobin Concent 33, Red Cell Distribution Width 16.8H, Platelet Count 171, Mean Platelet Volume 10.2, Neutrophils (%) (Auto) 85H, Lymphocytes (%) (Auto) 8L , Monocytes (%) (Auto) 8, Eosinophils (%) (Auto) 0, Basophils (%) (Auto) 0, Neutrophils # (Auto) 5.6, Lymphocytes # (Auto) 0.5L, Monocytes # (Auto) 0.5, Eosinophils # (Auto) 0.0, Basophils # (Auto) 0.0, Sodium Level 139, Potassium Level 4.1, Chloride Level 99, Carbon Dioxide Level 30, Anion Gap 10, Blood Urea Nitrogen 9, Creatinine 0.64, Estimat Glomerular Filtration Rate > 60, BUN/ Creatinine Ratio 14, Glucose Level 162H, Calcium Level 8.6 Microbiology 04/06/17 Blood Culture - Preliminary, Resulted No growth 04/06/17 Influenza Types A,B Antigen (VY) - Final, Complete Assessment/Plan Assessment/Plan Assess & Plan/Chief Complaint COPD with acute exacerbation. Pneumonia. Seizures. Not taking medications due to no money and still in spin down . 04/08/17. COPD with acute exacerbation. Pneumonia. Seizure disorder. noncompliance due to lack of money. Patient noticed been down. plan to discharge patient today Clinical Quality Measures DVT/VTE Risk/Contraindication: Risk Factor Score Per Nursin RFS Level Per Nursing on Admit: 4+=Very High AMANDEEP GENAO DO Apr 08, 2017 08:01
[2017-04-08] MEDS: GABAPENTIN 600 MG (NEURONTIN) TAB PO SCH (08:57)
[2017-04-08] MEDS: lisINopril 20 MG (ZESTRIL) TAB PO SCH (08:57)
[2017-04-08] MEDS: PHENYTOIN 100 MG (DILANTIN) CAP PO SCH (08:57)
[2017-04-08] MEDS: FUROSEMIDE 40 MG/4 ML INJ (LASIX) IVP SCH (08:57)
[2017-04-08] MEDS ORDERED: amLODIPine 5 MG (NORVASC) TAB PO SCH (09:00)
[2017-04-08] MEDS ORDERED: AMLO5TAB4 PO (11:03)
[2017-04-08] MEDS ORDERED: predniSONE 20 MG TAB PO NR (12:15)
[2017-04-08] MEDS ORDERED: PRD20T PO (12:16)
[2017-04-08 14:16] VITALS: BP 164/77
--- NOTE | 2017-04-09 13:34 | Physician Query Clarification ---
PQ-Conflicting Diagnosis Admission/Discharge Admission Date: Apr 06, 2017 at 11:15 Discharge Date: Apr 08, 2017 at 14:00 The medical record reflects the following clinical scenario: History/Risk Factors: COPD, hx pneumonia Clinical Findings: Speak in one word sentences on admit, dyspnea on exertion, wheezing, SOB Treatment: Bipap, IV Zosyn, Solu-medrol, Allbuterol Question: Do you agree with the impression of the Acute Respiratory Failure per Dr. Swenson . Please document a response below. PHYSICIAN RESPONSE Do you agree w/Consulting Dx?: Yes In responding to this query, please exercise your independent professional judgment. The purpose of this communication is to more accurately reflect the complexity of your patients condition. The fact that a question is asked does not imply that any particular answer is desired or expected. Thank you for your timely response to this clarification. Requestors name: Juan THIS PHYSICIAN QUERY FORM IS A PERMANENT PART OF THE MEDICAL RECORD JUAN VILLA Apr 09, 2017 13:33 SAMIRA LOVETT Apr 23, 2017 07:48 AMANDEEP GENAO DO Apr 24, 2017 07:10
--- NOTE | 2017-04-09 19:34 | Discharge Summary ---
Diagnosis/Chief Complaint Date of Admission Apr 06, 2017 at 11:15 Date of Discharge Apr 08, 2017 at 14:00 Discharge Time: 07:30 Discharge Diagnosis acute respiratory failure. Hypoxia. Pneumonia. Chronic obstructive pulmonary disease with acute exacerbation. Seizures. Hypertension. Patient's noncompliance due to not having the money to get his medicine. Neuropathy Hyperlipidemia Discharge Summary Discharge Physical Examination Allergies: Coded Allergies: aspirin (Unverified Allergy, Mild, DOES NOT WORK WELL W/ OTHER MEDS, ) ibuprofen (Unverified Allergy, Mild, 08/10/15) Vitals & I&Os Vital Signs Date Time Temp Pulse Resp B/P (MAP) Pulse Ox O2 Delivery O2 Flow Rate FiO2 04/08/17 14:16 61 18 164/77 96 Nasal Cannula 3.00 04/08/17 08:00 98.9 04/06/17 12:07 32 Hospital Course patient in hospital did improve. Last x-ray showed improvement of pneumonia. Patient not spend down and able to get his medicines now. Cause of admission was inability for patient to get medicines that were prescribed to him due to lack of money Labs (last 24 hrs) Laboratory Tests 04/06/17 08:20: White Blood Count 6.2, Red Blood Count 3.58L, Hemoglobin 11.0L, Hematocrit 35L, Mean Corpuscular Volume 96, Mean Corpuscular Hemoglobin 31, Mean Corpuscular Hemoglobin Concent 32, Red Cell Distribution Width 17.1H, Platelet Count 182, Mean Platelet Volume 10.1, Neutrophils (%) (Auto) 69, Lymphocytes (%) (Auto) 19 , Monocytes (%) (Auto) 12, Eosinophils (%) (Auto) 0, Basophils (%) (Auto) 1, Neutrophils # (Auto) 4.2, Lymphocytes # (Auto) 1.1, Monocytes # (Auto) 0.7, Eosinophils # (Auto) 0.0, Basophils # (Auto) 0.0, Prothrombin Time 13.3, INR Comment 1.0, Activated Partial Thromboplast Time 32, Sodium Level 141, Potassium Level 4.5, Chloride Level 102, Carbon Dioxide Level 29, Anion Gap 10, Blood Urea Nitrogen 12, Creatinine 0.63, Estimat Glomerular Filtration Rate > 60 , BUN/Creatinine Ratio 19, Glucose Level 105, Lactic Acid Level 0.90, Calcium Level 8.5, Total Bilirubin 0.3, Aspartate Amino Transf (AST/SGOT) 13, Alanine Aminotransferase (ALT/SGPT) 11, Alkaline Phosphatase 110, B-Type Natriuretic Peptide 390.3H, Total Protein 6.9, Albumin 3.9 04/06/17 11:05: Urine Color YELLOW, Urine Clarity CLEAR, Urine pH 8, Urine Specific [place] 1.015L, Urine Protein 1+H, Urine Glucose (UA) NEGATIVE, Urine Ketones NEGATIVE, Urine Nitrite NEGATIVE, Urine Bilirubin NEGATIVE, Urine Urobilinogen NORMAL, Urine Leukocyte Esterase NEGATIVE, Urine RBC (Auto) NEGATIVE, Urine RBC 0, Urine WBC RARE, Urine Crystals NONE, Urine Bacteria FEWH, Urine Casts NONE, Urine Mucus NEGATIVE, Urine Trichomonas FEWH, Urine Culture Indicated NO 04/07/17 05:25: White Blood Count 6.2, Red Blood Count 3.33L, Hemoglobin 10.0L, Hematocrit 34L, Mean Corpuscular Volume 100H, Mean Corpuscular Hemoglobin 30, Mean Corpuscular Hemoglobin Concent 30L, Red Cell Distribution Width 15.7H, Platelet Count 165, Mean Platelet Volume 8.7, Neutrophils (%) (Auto) 86H, Lymphocytes (%) (Auto) 7L , Monocytes (%) (Auto) 7, Eosinophils (%) (Auto) 0, Basophils (%) (Auto) 0, Neutrophils # (Auto) 5.4, Lymphocytes # (Auto) 0.4L, Monocytes # (Auto) 0.4, Eosinophils # (Auto) 0.0, Basophils # (Auto) 0.0, Sodium Level 140, Potassium Level 3.9, Chloride Level 100, Carbon Dioxide Level 29, Anion Gap 11, Blood Urea Nitrogen 13, Creatinine 0.65, Estimat Glomerular Filtration Rate > 60, BUN/ Creatinine Ratio 20, Glucose Level 149H, Calcium Level 8.6, Total Bilirubin 0.2 , Aspartate Amino Transf (AST/SGOT) 9, Alanine Aminotransferase (ALT/SGPT) 10, Alkaline Phosphatase 106, Total Protein 6.3L, Albumin 3.5, Neutrophils % (Manual ) 85, Lymphocytes % (Manual) 8, Monocytes % (Manual) 4, Eosinophils % (Manual) 0 , Basophils % (Manual) 0, Band Neutrophils 0, Reactive Lymphocytes 3, Hypochromasia SLIGHT, Poikilocytosis SLIGHT, Target Cells SLIGHT, Rouleau SLIGHT 04/08/17 06:28: White Blood Count 6.6, Red Blood Count 3.25L, Hemoglobin 10.1L, Hematocrit 31L, Mean Corpuscular Volume 94, Mean Corpuscular Hemoglobin 31, Mean Corpuscular Hemoglobin Concent 33, Red Cell Distribution Width 16.8H, Platelet Count 171, Mean Platelet Volume 10.2, Neutrophils (%) (Auto) 85H, Lymphocytes (%) (Auto) 8L , Monocytes (%) (Auto) 8, Eosinophils (%) (Auto) 0, Basophils (%) (Auto) 0, Neutrophils # (Auto) 5.6, Lymphocytes # (Auto) 0.5L, Monocytes # (Auto) 0.5, Eosinophils # (Auto) 0.0, Basophils # (Auto) 0.0, Sodium Level 139, Potassium Level 4.1, Chloride Level 99, Carbon Dioxide Level 30, Anion Gap 10, Blood Urea Nitrogen 9, Creatinine 0.64, Estimat Glomerular Filtration Rate > 60, BUN/ Creatinine Ratio 14, Glucose Level 162H, Calcium Level 8.6, Carbamazepine ( Tegretol) Level 4.9 Microbiology 04/06/17 Blood Culture - Preliminary, Resulted No growth 04/06/17 Influenza Types A,B Antigen (VY) - Final, Complete Laboratory Tests 04/06/17 08:20 04/07/17 05:25 04/08/17 06:28 Pending Labs Microbiology Date/Time Source Procedure Growth Status 04/06/17 08:46 Peripheral Rt Ac Blood Culture - Preliminary No growth Resulted 04/06/17 08:20 Peripheral Lt Ac Blood Culture - Preliminary No growth Resulted 04/06/17 08:40 Nasopharynx Influenza Types A,B Antigen (VY) - Final Complete Laboratory Tests 04/06/17 08:20: White Blood Count 6.2, Red Blood Count 3.58, Hemoglobin 11.0, Hematocrit 35, Mean Corpuscular Volume 96, Mean Corpuscular Hemoglobin 31, Mean Corpuscular Hemoglobin Concent 32, Red Cell Distribution Width 17.1, Platelet Count 182, Mean Platelet Volume 10.1, Neutrophils (%) (Auto) 69, Lymphocytes (%) (Auto) 19 , Monocytes (%) (Auto) 12, Eosinophils (%) (Auto) 0, Basophils (%) (Auto) 1, Neutrophils # (Auto) 4.2, Lymphocytes # (Auto) 1.1, Monocytes # (Auto) 0.7, Eosinophils # (Auto) 0.0, Basophils # (Auto) 0.0, Prothrombin Time 13.3, INR Comment 1.0, Activated Partial Thromboplast Time 32, Sodium Level 141, Potassium Level 4.5, Chloride Level 102, Carbon Dioxide Level 29, Anion Gap 10, Blood Urea Nitrogen 12, Creatinine 0.63, Estimat Glomerular Filtration Rate > 60 , BUN/Creatinine Ratio 19, Glucose Level 105, Lactic Acid Level 0.90, Calcium Level 8.5, Total Bilirubin 0.3, Aspartate Amino Transf (AST/SGOT) 13, Alanine Aminotransferase (ALT/SGPT) 11, Alkaline Phosphatase 110, B-Type Natriuretic Peptide 390.3, Total Protein 6.9, Albumin 3.9 04/06/17 11:05: Urine Color YELLOW, Urine Clarity CLEAR, Urine pH 8, Urine Specific [place] 1.015, Urine Protein 1+, Urine Glucose (UA) NEGATIVE, Urine Ketones NEGATIVE, Urine Nitrite NEGATIVE, Urine Bilirubin NEGATIVE, Urine Urobilinogen NORMAL, Urine Leukocyte Esterase NEGATIVE, Urine RBC (Auto) NEGATIVE, Urine RBC 0, Urine WBC RARE, Urine Crystals NONE, Urine Bacteria FEW, Urine Casts NONE, Urine Mucus NEGATIVE, Urine Trichomonas FEW, Urine Culture Indicated NO 04/07/17 05:25: White Blood Count 6.2, Red Blood Count 3.33, Hemoglobin 10.0, Hematocrit 34, Mean Corpuscular Volume 100, Mean Corpuscular Hemoglobin 30, Mean Corpuscular Hemoglobin Concent 30, Red Cell Distribution Width 15.7, Platelet Count 165, Mean Platelet Volume 8.7, Neutrophils (%) (Auto) 86, Lymphocytes (%) (Auto) 7, Monocytes (%) (Auto) 7, Eosinophils (%) (Auto) 0, Basophils (%) (Auto) 0, Neutrophils # (Auto) 5.4, Lymphocytes # (Auto) 0.4, Monocytes # (Auto) 0.4, Eosinophils # (Auto) 0.0, Basophils # (Auto) 0.0, Sodium Level 140, Potassium Level 3.9, Chloride Level 100, Carbon Dioxide Level 29, Anion Gap 11, Blood Urea Nitrogen 13, Creatinine 0.65, Estimat Glomerular Filtration Rate > 60, BUN/ Creatinine Ratio 20, Glucose Level 149, Calcium Level 8.6, Total Bilirubin 0.2, Aspartate Amino Transf (AST/SGOT) 9, Alanine Aminotransferase (ALT/SGPT) 10, Alkaline Phosphatase 106, Total Protein 6.3, Albumin 3.5, Neutrophils % (Manual ) 85, Lymphocytes % (Manual) 8, Monocytes % (Manual) 4, Eosinophils % (Manual) 0 , Basophils % (Manual) 0, Band Neutrophils 0, Reactive Lymphocytes 3, Hypochromasia SLIGHT, Poikilocytosis SLIGHT, Target Cells SLIGHT, Rouleau SLIGHT 04/08/17 06:28: White Blood Count 6.6, Red Blood Count 3.25, Hemoglobin 10.1, Hematocrit 31, Mean Corpuscular Volume 94, Mean Corpuscular Hemoglobin 31, Mean Corpuscular Hemoglobin Concent 33, Red Cell Distribution Width 16.8, Platelet Count 171, Mean Platelet Volume 10.2, Neutrophils (%) (Auto) 85, Lymphocytes (%) (Auto) 8, Monocytes (%) (Auto) 8, Eosinophils (%) (Auto) 0, Basophils (%) (Auto) 0, Neutrophils # (Auto) 5.6, Lymphocytes # (Auto) 0.5, Monocytes # (Auto) 0.5, Eosinophils # (Auto) 0.0, Basophils # (Auto) 0.0, Sodium Level 139, Potassium Level 4.1, Chloride Level 99, Carbon Dioxide Level 30, Anion Gap 10, Blood Urea Nitrogen 9, Creatinine 0.64, Estimat Glomerular Filtration Rate > 60, BUN/ Creatinine Ratio 14, Glucose Level 162, Calcium Level 8.6, Carbamazepine ( Tegretol) Level 4.9 Discharge Home Medications: Active Scripts Active Prednisone 20 Mg Tab 10 Mg PO UD 5 Days TAKE 4 TABS BY MOUTH ON FRIDAY TAKE 3 TABS BY MOUTH ON FRIDAY TAKE 2 TABS BY MOUTH ON FRIDAY TAKE 1 TAB BY MOUTH ON FRI Norvasc (Amlodipine Besylate) 5 Mg Tablet 5 Mg PO DAILY 30 Days Advair 250-50 Diskus (Fluticasone/Salmeterol) 1 Each Blst.w.dev 1 Puff IH BID LAST FILLED 01-25-17 Reported Cefdinir 300 Mg Capsule 300 Mg PO BID FILLED 04/02/17 #10 FOR A 5 DAY THERAPY Meloxicam 15 Mg Tablet 15 Mg PO 1500 Lamotrigine 25 Mg Tablet 25 Mg PO 1500,2300 Atorvastatin Calcium 10 Mg Tablet 10 Mg PO 0200 Lisinopril 20 Mg Tablet 20 Mg PO DAILY Pantoprazole Sodium 40 Mg Tablet.dr 40 Mg PO DAILY Proair Hfa (Albuterol Sulfate) 1 Puff Puff 2 Puff IH Q6H PRN 1 PUFF = 90 MCG Spiriva (Tiotropium [place]) 1 Inh Aerp 1 Cap IH HS Albuterol Sulfate 2.5 Mg/3 Ml Vial.neb 2.5 Mg NEB 5XD PRN Tegretol (Carbamazepine) 200 Mg Tablet 200 Mg PO 0200,0800,2300 Phenytoin Sodium Extended 100 Mg Capsule 100 Mg PO 0800,2300 Phenytoin Sodium Extended 100 Mg Capsule 200 Mg PO 1500 TAKES 2 (100MG) CAPSULES Gabapentin 600 Mg Tablet 600 Mg PO 0800,1500 Gabapentin 300 Mg Capsule 300 Mg PO 2300 Lamotrigine 100 Mg Tablet 100 Mg PO 1500,0200 Instructions to patient/family Please see electronic discharge instructions given to patient. Clinical Quality Measures DVT/VTE Risk/Contraindication: Risk Factor Score Per Nursin RFS Level Per Nursing on Admit: 4+=Very High AMANDEEP GENAO DO Apr 09, 2017 19:34
== END 2017-04-08 14:00 | disposition home or self-care (01) | DRG 189 ==
LOC: EDUNIT# 08:08 → ER 08:09 → 4TH 11:15
PROVIDERS: ADMIT Internal Medicine; ATTEND Family Medicine
DX: J96.00 Acute respiratory failure, unspecified whether with hypoxia or hypercapnia (principal); J18.9 Pneumonia, unspecified organism; J44.1 Chronic obstructive pulmonary disease with (acute) exacerbation; G62.9 Polyneuropathy, unspecified; G40.909 Epilepsy, unspecified, not intractable, without status epilepticus; I10 Essential (primary) hypertension; E78.00 Pure hypercholesterolemia, unspecified; Z91.19 Patient's noncompliance with other medical treatment and regimen
CPT/HCPCS: 36415; 71045; 71046; 80048; 80053; 80156; 81000; 83605; 83880; 85007; 85025; 85027; 85610; 85730; 87040; 87804; 94640; 94664; 94760; 96374; 99284

== ENCOUNTER 2017-04-30 15:17 | Emergency (ER) | payer MEDICAID ==
[~2017-04-30] VITALS: Ht 185.4 cm; Wt 71.2 kg
[~2017-04-30 15:17] MED LIST changes: +AMLO5TAB4 PO; +ATOR10TA66 PO; +LAMO25TA PO; +LISI-552 PO; +MELO15TA39 PO; +PANT40TA3 PO
--- OUTSIDE RECORDS SUMMARY | 2017-04-30 15:22 | XMS REPORT | Clinical Summary ---
Author Author [facility] Organization [facility] Address Unknown Phone Unavailable Care Team Providers Care Car Hop Name Role Phone Efra Valentino MD Unavailable Source Comments Some departments are not documenting in the electronic medical record. If you do not see the information that you expected, contact Release of Information in the Health Information Management department at [phone] for further assistance in locating additional records.[facility] Allergies Active Allergy Reactions Severity Noted Date [...] 16 Active Problems Problem Noted Date Seizures ([facility]) 10/22/2013 Hemiparesis ([facility]) 10/22/2013 Asthma 10/22/2013 COPD (chronic obstructive pulmonary disease) ([facility]) 10/22/2013 Hyperlipidemia 10/22/2013 Weight loss [...]
--- NOTE | 2017-04-30 15:40 | ED EENT ---
History of Present Illness General Chief Complaint: Nasal Problems Stated Complaint: NOSE BLEED Source: patient Exam Limitations: no limitations History of Present Illness Date Seen by Provider: Apr 30, 2017 Time Seen by Provider: 15:39 Initial Comments To ER, advised with reports of a nosebleed. This occurred about 11:30 this morning after he fell from a seizure. He has known history of seizure and takes Lamictal, Dilantin. He struck his nose and has had a bloody nose since then. He is oxygen dependent via nasal cannula for his COPD. Timing/Duration: this morning Severity: moderate Allergies and Home Medications Allergies Coded Allergies: aspirin (Unverified Allergy, Mild, DOES NOT WORK WELL W/ OTHER MEDS, ) ibuprofen (Unverified Allergy, Mild, 08/10/15) Home Medications Albuterol Sulfate 2.5 Mg/3 Ml Vial.neb, 2.5 MG NEB 5XD PRN for SHORTNESS OF BREATH, (Reported) Albuterol Sulfate 1 Puff Puff, 2 PUFF IH Q6H PRN for SHORTNESS OF BREATH, ( Reported) 1 PUFF = 90 MCG Amlodipine Besylate 5 Mg Tablet, 5 MG PO DAILY for 30 Days Prescribed by: BAN CARNES on 04/08/17 1103 Amoxicillin 500 Mg Capsule, 500 MG PO TID, #15 Prescribed by: NOREEN CHÁVEZ on 04/30/17 1640 Atorvastatin Calcium 10 Mg Tablet, 10 MG PO 0200, (Reported) Carbamazepine 200 Mg Tablet, 200 MG PO 0200,0800,2300, (Reported) Cefdinir 300 Mg Capsule, 300 MG PO BID, (Reported) FILLED 04/02/17 #10 FOR A 5 DAY THERAPY Fluticasone/Salmeterol 1 Each Blst.w.dev, 1 PUFF IH BID, #1 LAST FILLED 01-25-17 Prescribed by: ARLETH GARRIDO on 03/03/17 1352 Gabapentin 300 Mg Capsule, 300 MG PO 2300, (Reported) Gabapentin 600 Mg Tablet, 600 MG PO 0800,1500, (Reported) Lamotrigine 100 Mg Tablet, 100 MG PO 1500,0200, (Reported) Lamotrigine 25 Mg Tablet, 25 MG PO 1500,2300, (Reported) Lisinopril 20 Mg Tablet, 20 MG PO DAILY, (Reported) Meloxicam 15 Mg Tablet, 15 MG PO 1500, (Reported) Pantoprazole Sodium 40 Mg Tablet.dr, 40 MG PO DAILY, (Reported) Phenytoin Sodium Extended 100 Mg Capsule, 200 MG PO 1500, (Reported) TAKES 2 (100MG) CAPSULES Phenytoin Sodium Extended 100 Mg Capsule, 100 MG PO 0800,2300, (Reported) Prednisone 20 Mg Tab, 10 MG PO UD for 5 Days, #10 TAKE 4 TABS BY MOUTH ON FRIDAY TAKE 3 TABS BY MOUTH ON FRIDAY TAKE 2 TABS BY MOUTH ON FRIDAY TAKE 1 TAB BY MOUTH ON FRI Prescribed by: BAN CARNES on 04/08/17 1216 Tiotropium [place] 1 Inh Aerp, 1 CAP IH HS, (Reported) Review of Systems Constitutional: see HPI Eyes: No Symptoms Reported Ears: No Symptoms Reported Nose: no symptoms reported Mouth: no symptoms reported Throat: no symptoms reported Respiratory: no symptoms reported Cardiovascular: no symptoms reported Musculoskeletal: no symptoms reported Past Zadjqal-Uzjnlz-Hhblyj Hx Patient Social History Type Used: Cigarettes Former Smoker, Quit: Mar 02, 2017 Recent Hopitalizations: Yes (RESP DISTRESS) Immunizations Up To Date PED Vaccines UTD: Yes Surgeries History of Surgeries: Yes Surgeries: Gallbladder Respiratory History of Respiratory Disorde: Yes (tobaccoism) Respiratory Disorders: Asthma, Sleep Apnea, COPD Currently Using CPAP: No Currently Using BIPAP: No Cardiovascular History of Cardiac Disorders: Yes Cardiac Disorders: High Cholesterol Neurological History of Neurological Disord: Yes (post polio syndrome with left-sided deficits) Neurological Disorders: Seizure Disorder Reproductive System Hx Reproductive Disorders: No Sexually Transmitted Disease: No HIV/AIDS: No Gastrointestinal History of Gastrointestinal Di: No Musculoskeletal History of Musculoskeletal Dis: No Musculoskeletal Disorders: Arthritis Endocrine History of Endocrine Disorders: No HEENT Loss of Vision: Denies Hearing Impairment: Denies Cancer History of Cancer: No Psychosocial History of Psychiatric Problem: No Integumentary History of Skin or Integumenta: No Blood Transfusions History of Blood Disorders: No Adverse Reaction to a Blood Tr: No Family Medical History Significant Family History: No Pertinent Family Hx, Heart Disease Family Medial History: Hypercholesterolemia 19 FATHER Hypertension 19 FATHER Physical Exam Vital Signs Vital Sign - Last 12Hours 04/30/17 15:37 Temp 98.2 Pulse 79 Resp 20 B/P (MAP) 165/89 (114) Pulse Ox 96 General Appearance: WD/WN, no apparent distress Eyes: bilateral eye normal inspection, bilateral eye PERRL, bilateral eye EOMI Ears: bilateral ear auricle normal, bilateral ear canal normal, bilateral ear TM normal Nose: dried blood (and clot in the left naris, minor amount of dried blood in the right near. No septal hematoma seen. No active bleeding.) Neck: non-tender, full range of motion Respiratory: no respiratory distress, no accessory muscle use Gastrointestinal: non tender, soft Neurologic/Psychiatric: alert, normal mood/affect, oriented x 3 Skin: normal color, warm/dry Date of ETT Placement: Mar 09, 2017 Time of ETT Placement: 1811 Laceration Repair : Suture Size: 5-0 Progress/Results/Core Measures Results/Orders Lab Results Laboratory Tests Test 04/30/17 15:27 Range/Units White Blood Count 10.5 4.3-11.0 10^3/uL Red Blood Count 4.05 L 4.35-5.85 10^6/uL Hemoglobin 12.3 L 13.3-17.7 G/DL Hematocrit 38 L 40-54 % Mean Corpuscular Volume 93 80-99 FL Mean Corpuscular Hemoglobin 30 25-34 PG Mean Corpuscular Hemoglobin Concent 33 32-36 G/DL Red Cell Distribution Width 14.8 H 10.0-14.5 % Platelet Count 320 130-400 10^3/uL Mean Platelet Volume 9.6 7.4-10.4 FL Neutrophils (%) (Auto) 77 H 42-75 % Lymphocytes (%) (Auto) 11 L 12-44 % Monocytes (%) (Auto) 11 0-12 % Eosinophils (%) (Auto) 0 0-10 % Basophils (%) (Auto) 0 0-10 % Neutrophils # (Auto) 8.1 H 1.8-7.8 X 10^3 Lymphocytes # (Auto) 1.1 1.0-4.0 X 10^3 Monocytes # (Auto) 1.2 H 0.0-1.0 X 10^3 Eosinophils # (Auto) 0.0 0.0-0.3 10^3/uL Basophils # (Auto) 0.0 0.0-0.1 10^3/uL Sodium Level 133 L 135-145 MMOL/L Potassium Level 5.0 3.6-5.0 MMOL/L Chloride Level 92 L 98-107 MMOL/L Carbon Dioxide Level 31 21-32 MMOL/L Anion Gap 10 5-14 MMOL/L Blood Urea Nitrogen 14 7-18 MG/DL Creatinine 0.71 0.60-1.30 MG/DL Estimat Glomerular Filtration Rate > 60 BUN/Creatinine Ratio 20 Glucose Level 107 H 70-105 MG/DL Calcium Level 9.4 8.5-10.1 MG/DL Total Bilirubin 0.3 0.1-1.0 MG/DL Aspartate Amino Transf (AST/SGOT) 14 5-34 U/L Alanine Aminotransferase (ALT/SGPT) 9 0-55 U/L Alkaline Phosphatase 137 H 40-136 U/L Total Protein 8.0 6.4-8.2 GM/DL Albumin 4.3 3.2-4.5 GM/DL My Orders Orders - NOREEN CHÁVEZ APRN Cbc With Automated Diff (04/30/17 15:37) Comprehensive Metabolic Panel (04/30/17 15:37) Ct Head/Face/Cervical Wo (04/30/17 15:37) Oxymetazoline 0.05% Nasal [place] (Afrin 0. (04/30/17 21:00) Oxymetazoline 0.05% Nasal [place] (Afrin 0. (04/30/17 16:09) Tranexamic Acid Injection (Cyklokapron I (04/30/17 17:00) Tranexamic Acid Injection (Cyklokapron I (04/30/17 16:58) Medications Given in ED Current Medications Medications Dose Ordered Sig/Porfirio Route Start Time Stop Time Status Last Admin Dose Admin Tranexamic Acid Cannot edit rou... ONCE ONCE IV 04/30/17 17:00 04/30/17 17:01 DC 04/30/17 17:04 30 MG Vital Signs/I&O Vital Sign - Last 12Hours 04/30/17 15:37 Temp 98.2 Pulse 79 Resp 20 B/P (MAP) 165/89 (114) Pulse Ox 96 Departure Communication (Admissions) Progress Notes 1800-patient did require placement of a rapid Rhino tube his left nostril for the epistaxis. This was placed for about one hour and removed about 10 minutes ago. As of yet, no recurrent bleeding. 1809-unfortunately there has been recurrent bleeding from the left nostril. A new rapid Rhino 5.5 cm was placed and taped in place. He'll be started on amoxicillin. We'll discharged home with this packing in place, he'll return to the emergency room tomorrow around noon to have this removed by me and reevaluated. Impression Impression: Primary Impression: Epistaxis Additional Impression: Nasal bone fracture Disposition: 01 HOME, SELF-CARE Condition: Stable Departure-Patient Inst. Decision time for Depature: 16:39 Referrals: SHARON RIZO MD, RICHARD A DO (PCP/Family) Primary Care Physician Patient Instructions: Nose Fracture (DC), Nosebleeds (DC) Add. Discharge Instructions: 1. Return to ER for any concerns 2. Call Dr. Rizo from ear nose and throat for follow-up 2. Return to ER for any concerns such as recurrent uncontrollable nosebleeds. No blowing your nose for one week All discharge instructions reviewed with patient and/or family. Voiced understanding. Scripts Amoxicillin (Amoxicillin) 500 Mg Capsule 500 MG PO TID, #15 CAP Prov: NOREEN CHÁVEZ [employer] 04/30/17 NOREEN CHÁVEZ APRN Apr 30, 2017 15:40
[2017-04-30 15:42] LABS: BASOPHILS % (AUTO) 0 % (0-10); EOSINOPHILS % (AUTO) 0 % (0-10); HEMATOCRIT 38 % (40-54); HEMOGLOBIN 12.3 G/DL (13.3-17.7); LYMPHOCYTES # (AUTO) 1.1 X 10^3 (1.0-4.0); LYMPHOCYTES % (AUTO) 11 % (12-44); MEAN CORPUSCULAR HEMOGLOBIN 30 PG (25-34); MEAN CORPUSCULAR HGB CONC 33 G/DL (32-36); MEAN CORPUSCULAR VOLUME 93 FL (80-99); MEAN PLATELET VOLUME 9.6 FL (7.4-10.4); MONOCYTES # (AUTO) 1.2 X 10^3 (0.0-1.0); MONOCYTES % (AUTO) 11 % (0-12); NEUTROPHILS # (AUTO) 8.1 X 10^3 (1.8-7.8); NEUTROPHILS % (AUTO) 77 % (42-75); PLATELET COUNT 320 10^3/uL (130-400); RED BLOOD COUNT 4.05 10^6/uL (4.35-5.85); RED CELL DISTRIBUTION WIDTH 14.8 % (10.0-14.5); WHITE BLOOD COUNT 10.5 10^3/uL (4.3-11.0)
[2017-04-30 16:05] LABS: ALANINE AMINOTRANSFERASE 9 U/L (0-55); ALBUMIN 4.3 GM/DL (3.2-4.5); ALKALINE PHOSPHATASE 137 U/L (40-136); BILIRUBIN,TOTAL 0.3 MG/DL (0.1-1.0); BUN/CREATININE RATIO 20; CALCIUM 9.4 MG/DL (8.5-10.1); CARBON DIOXIDE 31 MMOL/L (21-32); CHLORIDE 92 MMOL/L (98-107); CREATININE SERUM 0.71 MG/DL (0.60-1.30); GFR ESTIMATED > 60; GLUCOSE 107 MG/DL (70-105); SODIUM 133 MMOL/L (135-145)
[2017-04-30] MEDS ORDERED: OXYMETAZOLINE (AFRIN) 0.05% NA 15 ML BTL ONE (16:09)
[2017-04-30] MEDS ORDERED: AMOX500C2 PO (16:40)
--- NOTE | 2017-04-30 16:41 | Diagnostic Imaging Report ---
INDICATION: Seizure with fall and head and neck and facial pain. CT BRAIN FINDINGS: Noncontrast brain CT is performed. Comparison made to 01/14/2017. There is again noted to be asymmetry of the lateral ventricles with the right being larger, with atrophic change of the right hemisphere with a paucity of gyri and sulci in the right hemisphere, similar to the prior study; this probably represents some form of dysplasia; MRI might be helpful for more specificity if clinically warranted. There is, however, no evidence of acute subdural or epidural hemorrhage. There is no focal new intraparenchymal abnormality in the brain. Calvarial windows are unremarkable. CT CERVICAL SPINE FINDINGS: Axial slices are obtained with sagittal and coronal reconstructions without contrast. Some of the images are degraded by motion artifact. Visualized portions of the lung apices demonstrate COPD changes. There is no overt acute cervical spine fracture. There are diffuse degenerative changes throughout the facet joints. There is marked disc space narrowing with osteophyte formation at C5-6 and C6-7. There is anterolisthesis of C3 on C4, which is probably on a degenerative basis. CT MAXILLOFACIAL FINDINGS: Axial slices were obtained with sagittal and coronal reconstructions without contrast. There are bilateral nasal fractures with mild displacement. There is a fracture of the nasal septum. Remaining structures are intact. The sinuses are well aerated. IMPRESSION: CT head demonstrates no acute hemorrhage or mass effect or acute intracranial finding. 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 There is no calvarial fracture or acute abnormality. CT cervical spine demonstrates multilevel degenerative changes as described above with no acute fracture. There is anterolisthesis of C3 on C4, which is probably on a degenerative basis. CT maxillofacial demonstrates bilateral nasal bone fractures with mild leftward displacement. There is a fracture of the nasal septum. The remaining structures are intact. Dictated by: Dictated on workstation # [id number]
[2017-04-30] MEDS ORDERED: TRANEXAMIC ACID 100 MG/ML 10 ML INJECTION IV ONE ×2 (16:58→17:00)
[2017-04-30 18:22] VITALS: BP 136/76
[2017-04-30] MEDS ORDERED: OXYMETAZOLINE (AFRIN) 0.05% NA 15 ML BTL SCH (21:00)
[2017-04-30] MEDS ORDERED: RT-ALBUTEROL/IPRATROPIUM 3 ML (DUONEB) VIAL ONE (23:08)
== END 2017-04-30 18:22 | disposition home or self-care (01) ==
LOC: EDUNIT# 15:17 → ER 15:18
DX: S02.2XXA Fracture of nasal bones, initial encounter for closed fracture (principal); R04.0 Epistaxis; G40.909 Epilepsy, unspecified, not intractable, without status epilepticus; E78.00 Pure hypercholesterolemia, unspecified; J44.9 Chronic obstructive pulmonary disease, unspecified; Z87.891 Personal history of nicotine dependence; Z79.52 Long term (current) use of systemic steroids; Z88.6 Allergy status to analgesic agent; Z99.81 Dependence on supplemental oxygen; W19.XXXA Unspecified fall, initial encounter
CPT/HCPCS: 36415; 70450; 70486; 72125; 80053; 85025; 96360

== ENCOUNTER 2017-04-30 19:40 | Emergency (ER) | payer MEDICAID ==
[~2017-04-30] VITALS: Ht 185.4 cm; Wt 71.6 kg
[~2017-04-30 19:40] MED LIST changes: +AMOX500C2 PO
--- OUTSIDE RECORDS SUMMARY | 2017-04-30 19:47 | XMS REPORT | Clinical Summary ---
Author Author [facility] Organization [facility] Address Unknown Phone Unavailable Care Team Providers Care Server Assistant Name Role Phone Efra Valentino MD Unavailable Source Comments Some departments are not documenting in the electronic medical record. If you do not see the information that you expected, contact Release of Information in the Health Information Management department at [phone] for further assistance in locating additional records.[facility] Allergies Active Allergy Reactions Severity Noted [...] 16 Active Problems Problem Noted Date Seizures ([facility]) 10/22/2013 Hemiparesis ([facility]) 10/22/2013 Asthma 10/22/2013 COPD (chronic obstructive pulmonary disease) ([facility]) 10/22/2013 Hyperlipidemia 10/22/2013 Weight loss 10/22/2013 [...]
[2017-04-30] MEDS ORDERED: PHENYLEPHRINE 0.25% NASAL SPR (NEO-SYNEPHRINE) 15 ML NS ONE (20:43)
--- NOTE | 2017-04-30 21:22 | ED EENT ---
History of Present Illness General Chief Complaint: Nasal Problems Stated Complaint: NOSE BLEED Nursing Triage Note: PT PRESENTS ED WITH COMPLAINT OF NOSE BLEED SINCE 1130 TODAY. ALREADY SEEN ONCE TODAY IN ER Source: patient Exam Limitations: no limitations History of Present Illness Date Seen by Provider: Apr 30, 2017 Time Seen by Provider: 21:20 Initial Comments To ER with reports of a left-sided nosebleed since 11:30 AM today. Patient was alert he seen once in the ER and had nasal packing done. He was diagnosed with a nasal bone and septal fracture. Rapid Rhino 5.5 cm was placed in left nostril and he was discharged home. He got home and started bleeding again despite this fact so he came to the emergency room. He is not on aspirin or Plavix or any anticoagulant. Timing/Duration: abrupt, gradual Severity: moderate Allergies and Home Medications Allergies Coded Allergies: aspirin (Unverified Allergy, Mild, DOES NOT WORK WELL W/ OTHER MEDS, ) ibuprofen (Unverified Allergy, Mild, 08/10/15) Home Medications Albuterol Sulfate 2.5 Mg/3 Ml Vial.neb, 2.5 MG NEB 5XD PRN for SHORTNESS OF BREATH, (Reported) Albuterol Sulfate 1 Puff Puff, 2 PUFF IH Q6H PRN for SHORTNESS OF BREATH, ( Reported) 1 PUFF = 90 MCG Amlodipine Besylate 5 Mg Tablet, 5 MG PO DAILY for 30 Days Prescribed by: BAN CARNES on 04/08/17 1103 Amoxicillin 500 Mg Capsule, 500 MG PO TID, #15 Prescribed by: NOREEN CHÁVEZ on 04/30/17 1640 Atorvastatin Calcium 10 Mg Tablet, 10 MG PO 0200, (Reported) Carbamazepine 200 Mg Tablet, 200 MG PO 0200,0800,2300, (Reported) Cefdinir 300 Mg Capsule, 300 MG PO BID, (Reported) FILLED 04/02/17 #10 FOR A 5 DAY THERAPY Fluticasone/Salmeterol 1 Each Blst.w.dev, 1 PUFF IH BID, #1 LAST FILLED 01-25-17 Prescribed by: ARLETH GARRIDO on 03/03/17 1352 Gabapentin 300 Mg Capsule, 300 MG PO 2300, (Reported) Gabapentin 600 Mg Tablet, 600 MG PO 0800,1500, (Reported) Lamotrigine 100 Mg Tablet, 100 MG PO 1500,0200, (Reported) Lamotrigine 25 Mg Tablet, 25 MG PO 1500,2300, (Reported) Lisinopril 20 Mg Tablet, 20 MG PO DAILY, (Reported) Meloxicam 15 Mg Tablet, 15 MG PO 1500, (Reported) Pantoprazole Sodium 40 Mg Tablet.dr, 40 MG PO DAILY, (Reported) Phenytoin Sodium Extended 100 Mg Capsule, 200 MG PO 1500, (Reported) TAKES 2 (100MG) CAPSULES Phenytoin Sodium Extended 100 Mg Capsule, 100 MG PO 0800,2300, (Reported) Prednisone 20 Mg Tab, 10 MG PO UD for 5 Days, #10 TAKE 4 TABS BY MOUTH ON FRIDAY TAKE 3 TABS BY MOUTH ON FRIDAY TAKE 2 TABS BY MOUTH ON FRIDAY TAKE 1 TAB BY MOUTH ON FRI Prescribed by: BAN CARNES on 04/08/17 1216 Tiotropium [place] 1 Inh Aerp, 1 CAP IH HS, (Reported) Review of Systems Constitutional: see HPI Eyes: No Symptoms Reported Ears: No Symptoms Reported Nose: see HPI, clots, epistaxis Mouth: no symptoms reported Throat: no symptoms reported Respiratory: no symptoms reported Cardiovascular: no symptoms reported Musculoskeletal: no symptoms reported Past Qjalefo-Gbdlbg-Rzgyjk Hx Patient Social History Alcohol Use: Denies Use Recreational Drug Use: Yes (not current, 15 years ago-ETOH and PO drugs) Type Used: Cigarettes Former Smoker, Quit: Mar 02, 2017 Recent Foreign Travel: No Contact w/Someone Who Travel: No Recent Infectious Disease Expo: No Recent Hopitalizations: Yes (RESP DISTRESS) Immunizations Up To Date PED Vaccines UTD: Yes Surgeries History of Surgeries: Yes Surgeries: Gallbladder Respiratory History of Respiratory Disorde: Yes (tobaccoism) Respiratory Disorders: Asthma, Sleep Apnea, COPD Currently Using CPAP: No Currently Using BIPAP: No Cardiovascular History of Cardiac Disorders: Yes Cardiac Disorders: High Cholesterol, Hypertension Neurological History of Neurological Disord: Yes (post polio syndrome with left-sided deficits) Neurological Disorders: Seizure Disorder Reproductive System Hx Reproductive Disorders: No Sexually Transmitted Disease: No HIV/AIDS: No Gastrointestinal History of Gastrointestinal Di: No Musculoskeletal History of Musculoskeletal Dis: No Musculoskeletal Disorders: Arthritis Endocrine History of Endocrine Disorders: No HEENT Loss of Vision: Denies Hearing Impairment: Denies Cancer History of Cancer: No Psychosocial History of Psychiatric Problem: No Integumentary History of Skin or Integumenta: No Blood Transfusions History of Blood Disorders: No Adverse Reaction to a Blood Tr: No Family Medical History Significant Family History: No Pertinent Family Hx, Heart Disease Family Medial History: Hypercholesterolemia 19 FATHER Hypertension 19 FATHER Physical Exam Vital Signs Vital Sign - Last 12Hours 04/30/17 20:00 Temp 98.0 Pulse 94 Resp 20 B/P (MAP) 125/78 (94) Pulse Ox 96 O2 Delivery Nasal Cannula O2 Flow Rate 4.00 General Appearance: WD/WN, no apparent distress, other Eyes: bilateral eye normal inspection, bilateral eye PERRL, bilateral eye EOMI Ears: bilateral ear auricle normal, bilateral ear canal normal, bilateral ear TM normal Nose: other (there is blood coming from the left nostril despite the rapid Rhino. I removed the rapid Rhino) Mouth/Throat: normal mouth inspection, pharynx normal Neck: non-tender, full range of motion Cardiovascular: regular rate, rhythm, no murmur Respiratory: normal breath sounds, no respiratory distress, no accessory muscle use Gastrointestinal: normal bowel sounds, non tender Neurologic/Psychiatric: alert, normal mood/affect, oriented x 3 Skin: normal color, warm/dry Date of ETT Placement: Mar 09, 2017 Time of ETT Placement: 1811 Laceration Repair : Suture Size: 5-0 Progress/Results/Core Measures Results/Orders My Orders Orders - NOREEN CHÁVEZ APRN Phenylephrine 0.25% Nasal Spra (Jaquan-Syne (04/30/17 20:43) Medications Given in ED Current Medications Medications Dose Ordered Sig/Porfirio Route Start Time Stop Time Status Last Admin Dose Admin Phenylephrine HCl 15 ml STK-MED ONCE NS 04/30/17 20:43 04/30/17 20:45 DC 04/30/17 20:49 15 ML Vital Signs/I&O Vital Sign - Last 12Hours 04/30/17 20:00 Temp 98.0 Pulse 94 Resp 20 B/P (MAP) 125/78 (94) Pulse Ox 96 O2 Delivery Nasal Cannula O2 Flow Rate 4.00 Blood Pressure Mean: 94 Departure Communication (Admissions) Progress Notes 2214- name Shon from Dr. Rizo's office nurse practitioner has been in. She removed my packing and placed packing again. This was at 2144. Since she did this and also applied Jaquan-Synephrine there has been no residual bleeding. She will follow up with the patient clinic on Friday per the packing will remain in place until then. I did give him a prescription for antibiotics, amoxicillin 500 mg by mouth 3 times a day 5 days starting this morning during his earlier visit today and he should continue that. At this time there is no residual bleeding 1 hour after she placed the packing. Impression Impression: Primary Impression: Epistaxis Disposition: 01 HOME, SELF-CARE Condition: Stable Departure-Patient Inst. Decision time for Depature: 22:16 Referrals: AMANDEEP GENAO DO (PCP/Family) Primary Care Physician Patient Instructions: Nosebleeds (DC) Add. Discharge Instructions: 1. Leave the packing in place until Friday. Call Dr. Rizo's office tomorrow to make an appointment to be seen on Friday. Return to ER for any concerns, if you have persistent or recurrent nosebleeds between now and Friday, Dr. Rizo's out of town so we will need to transfer U to [facility] or [facility] in [place]. NOREEN CHÁVEZ APRN Apr 30, 2017 21:22
[2017-04-30] MEDS ORDERED: PHENYTOIN 100 MG (DILANTIN) CAP PO ONE (23:04)
[2017-04-30] MEDS ORDERED: GABAPENTIN 600 MG (NEURONTIN) TAB ONE (23:06)
[2017-04-30] MEDS ORDERED: lamoTRIgine 25 MG (LaMICtal) TAB ONE (23:13)
[2017-04-30] MEDS ORDERED: carBAMazepine 200 MG (TEGretol) TAB PO ONE (23:13)
[2017-04-30 23:27] VITALS: BP 115/78
[2017-04-30] MEDS ORDERED: RT-ALBUTEROL/IPRATROPIUM 3 ML (DUONEB) VIAL INH ONE (23:30)
== END 2017-04-30 23:27 | disposition home or self-care (01) ==
LOC: EDUNIT# 19:40 → ER 19:42
DX: R04.0 Epistaxis (principal); E78.00 Pure hypercholesterolemia, unspecified; I10 Essential (primary) hypertension; G40.909 Epilepsy, unspecified, not intractable, without status epilepticus; J44.9 Chronic obstructive pulmonary disease, unspecified; Z87.891 Personal history of nicotine dependence; Z88.6 Allergy status to analgesic agent; Z87.09 Personal history of other diseases of the respiratory system; Z79.52 Long term (current) use of systemic steroids
CPT/HCPCS: 94640

== ENCOUNTER 2017-05-20 14:46 | Inpatient (IN) | payer MEDICAID ==
[~2017-05-20] VITALS: Ht 185.4 cm; Wt 56.0 kg
[~2017-05-20 14:46] MED LIST changes: +LIDOCAINE 4% INJ (XYLOCAINE) 5ML AMP INJ ONE; +LIDOCAINE PF 1% 2 ML AMP IJ ONE
--- OUTSIDE RECORDS SUMMARY | 2017-05-20 14:52 | XMS REPORT | Clinical Summary ---
Author Author [facility] Organization [facility] Address Unknown Phone Unavailable Care Team Providers Care Pharmacy Graduate Intern Name Role Phone Efra Valentino MD Unavailable Source Comments Some departments are not documenting in the electronic medical record. If you do not see the information that you expected, contact Release of Information in the Health Information Management department at [phone] for further assistance in locating additional records.[facility] Allergies Active Allergy Reactions Severity Noted [...] 16 Active Problems Problem Noted Date Seizures ([facility]) 10/22/2013 Hemiparesis ([facility]) 10/22/2013 Asthma 10/22/2013 COPD (chronic obstructive pulmonary disease) ([facility]) 10/22/2013 Hyperlipidemia 10/22/2013 Weight loss 10/22/2013 Family [...]
[2017-05-20] MEDS ORDERED: IOHEXOL 350 MG/ML 100 ML (OMNIPAQUE 350) VIAL IV ONE (15:00)
[2017-05-20] MEDS ORDERED: NS 250 ML (IVPB) BAG IV ONE (15:00)
[2017-05-20 15:05] LABS: BASOPHILS % (AUTO) 0 % (0-10); EOSINOPHILS % (AUTO) 0 % (0-10); HEMATOCRIT 35 % (40-54); HEMOGLOBIN 11.5 G/DL (13.3-17.7); LYMPHOCYTES # (AUTO) 0.8 X 10^3 (1.0-4.0); LYMPHOCYTES % (AUTO) 9 % (12-44); MEAN CORPUSCULAR HEMOGLOBIN 31 PG (25-34); MEAN CORPUSCULAR HGB CONC 33 G/DL (32-36); MEAN CORPUSCULAR VOLUME 92 FL (80-99); MEAN PLATELET VOLUME 8.7 FL (7.4-10.4); MONOCYTES # (AUTO) 0.8 X 10^3 (0.0-1.0); MONOCYTES % (AUTO) 9 % (0-12); NEUTROPHILS # (AUTO) 7.2 X 10^3 (1.8-7.8); NEUTROPHILS % (AUTO) 82 % (42-75); PLATELET COUNT 357 10^3/uL (130-400); RED BLOOD COUNT 3.77 10^6/uL (4.35-5.85); RED CELL DISTRIBUTION WIDTH 15.2 % (10.0-14.5); WHITE BLOOD COUNT 8.8 10^3/uL (4.3-11.0)
[2017-05-20] MEDS ORDERED: RECEIVED CONTRAST (Hold Metformin) IV SCH (15:15)
[2017-05-20 15:26] LABS: ALANINE AMINOTRANSFERASE 11 U/L (0-55); ALBUMIN 3.6 GM/DL (3.2-4.5); ALKALINE PHOSPHATASE 99 U/L (40-136); BILIRUBIN,TOTAL 0.3 MG/DL (0.1-1.0); BUN/CREATININE RATIO 7; CALCIUM 8.7 MG/DL (8.5-10.1); CARBON DIOXIDE 29 MMOL/L (21-32); CHLORIDE 94 MMOL/L (98-107); CREATININE SERUM 0.81 MG/DL (0.60-1.30); GFR ESTIMATED > 60; GLUCOSE 109 MG/DL (70-105); POTASSIUM 4.1 MMOL/L (3.6-5.0); SODIUM 133 MMOL/L (135-145); TOTAL PROTEIN 7.4 GM/DL (6.4-8.2)
--- NOTE | 2017-05-20 15:37 | Diagnostic Imaging Report ---
PROCEDURE: CT chest with contrast only. TECHNIQUE: Multiple contiguous axial images were obtained through the chest after administration of intravenous contrast. INDICATION: Shortness of air, weakness. COMPARISON: Comparison made with overlapped images obtained during an abdominal CT 02/28/2016. No previous chest CT. FINDINGS: While there is chronic air trapping and COPD present, there is an acute infiltrate in the patient's left lower lobe and to a lesser extent involving the lingular segment of the left upper lobe consistent with pneumonia. There is more mild patchy tree-in-bud nodularity and infiltrate in the right lower lobe. A spiculated nodule in the patient's left upper lobe posteriorly is present measuring 1.4 cm. Malignancy cannot be excluded unrelated to the suspected acute infiltrate. Consider metabolic PET/CT as its further evaluation. There is a left paratracheal subaortic node which measures 1.8 cm. Subcarinal space appeared negative. The AP window and ryan appeared unremarkable. Thoracic inlet and axillae are unremarkable. Degenerative subchondral cyst in the humeral heads noted. The visualized upper abdomen reveals intact adrenals and a nonacute incompletely visualized liver. IMPRESSION: 1. Pneumonia involving the left lower greater than right lower lobes and minimally involving the lingula superimposed upon chronic COPD. 2. Spiculated nodule in the left upper lobe posteriorly. Neoplasm cannot be excluded. Metabolic PET/CT recommended for further lesional characterization. 3. No convincing pathological lymph nodes. Dictated by: Dictated on workstation # [id number]
[2017-05-20] MEDS ORDERED: NS IV 1000 ML 1,000 ML IV ONE (15:46)
--- NOTE | 2017-05-20 15:53 | ED Respiratory ---
General Chief Complaint: Neurological Problems Stated Complaint: WEAK,SOA Nursing Triage Note: PT STATES GENERAL WEAKNESS AND WEIGHT LOSS, LOST 17 POUNDS OVER THE LAST MONTH, SENT HERE FROM DR. KERLINE PINEDA. History of Present Illness Date Seen by Provider: May 20, 2017 Time Seen by Provider: 14:55 Initial Comments 61-year-old male sent from Dr. Genao's office for fatigue, 17 pound weight loss in the last month, difficulty ambulating and muscle tenderness. He has smoked for the last 49 years stopping in January 2017. He has had several emergency department and hospital admissions over the last few months. He was scheduled to have a CT of his chest in March that missed it due to other health issues. He wears oxygen per nasal cannula at 3 L, continuously Timing/Duration: getting worse Severity: moderate Prior Episodes/Possible Cause: frequent episodes Modifying Factors: Improves With Oxygen, Improves With Rest Associated Symptoms: cough, lightheadedness, muscle aches, shortness of breath Allergies and Home Medications Allergies Coded Allergies: aspirin (Unverified Allergy, Mild, DOES NOT WORK WELL W/ OTHER MEDS, ) ibuprofen (Unverified Allergy, Mild, 08/10/15) Home Medications Albuterol Sulfate 2.5 Mg/3 Ml Vial.neb, 2.5 MG NEB 5XD PRN for SHORTNESS OF BREATH, (Reported) Albuterol Sulfate 1 Puff Puff, 2 PUFF IH Q6H PRN for SHORTNESS OF BREATH, ( Reported) 1 PUFF = 90 MCG Amlodipine Besylate 5 Mg Tablet, 5 MG PO DAILY, (Reported) Atorvastatin Calcium 10 Mg Tablet, 10 MG PO 0200, (Reported) Budesonide/Formoterol Fumarate 10.2 Gm Hfa.aer.ad, 2 PUFF IH BID, (Reported) Carbamazepine 200 Mg Tablet, 200 MG PO 0200,0800,2300, (Reported) Carbamazepine 200 Mg Tablet, 400 MG PO 0200,0800,2300, (Reported) TAKES 2 (200 MG) TABLETS Fluticasone/Salmeterol 1 Each Blst.w.dev, 1 PUFF IH BID, (Reported) Gabapentin 300 Mg Capsule, 300 MG PO 2300, (Reported) Gabapentin 600 Mg Tablet, 600 MG PO 0800,1500, (Reported) Lamotrigine 100 Mg Tablet, 100 MG PO 1500,0200, (Reported) Lamotrigine 25 Mg Tablet, 25 MG PO 1500,2300, (Reported) Lisinopril 20 Mg Tablet, 20 MG PO DAILY, (Reported) Meloxicam 15 Mg Tablet, 15 MG PO 1500, (Reported) Pantoprazole Sodium 40 Mg Tablet.dr, 40 MG PO DAILY, (Reported) Phenytoin Sodium Extended 100 Mg Capsule, 200 MG PO 1500, (Reported) TAKES 2 (100MG) CAPSULES Phenytoin Sodium Extended 100 Mg Capsule, 100 MG PO 0800,2300, (Reported) Tiotropium Norman 1 Inh Aerp, 1 CAP IH HS, (Reported) Constitutional: see HPI, malaise, weakness, weight loss EENTM: see HPI, no symptoms reported Respiratory: see HPI, cough, short of breath Cardiovascular: no symptoms reported, see HPI Gastrointestinal: see HPI, heartburn, loss of appetite, nausea Genitourinary: no symptoms reported, see HPI Musculoskeletal: see HPI, joint pain, muscle stiffness, muscle cramps, muscle weakness All Other Systems Reviewed Negative Unless Noted: Yes Past Keldaxf-Uzbjjg-Bfosdm Hx Patient Social History Alcohol Use: Denies Use Recreational Drug Use: Yes (not current, 15 years ago-ETOH and PO drugs) Smoking Status: Former Smoker Type Used: Cigarettes Former Smoker, Quit: Mar 02, 2017 Recent Foreign Travel: No Contact w/Someone Who Travel: No Recent Infectious Disease Expo: No Recent Hopitalizations: Yes (RESP DISTRESS) Immunizations Up To Date PED Vaccines UTD: Yes Surgeries History of Surgeries: Yes Surgeries: Gallbladder Respiratory History of Respiratory Disorde: Yes (tobaccoism) Respiratory Disorders: Asthma, Sleep Apnea, COPD Currently Using CPAP: No Currently Using BIPAP: No Cardiovascular History of Cardiac Disorders: Yes Cardiac Disorders: High Cholesterol, Hypertension Neurological History of Neurological Disord: Yes (post polio syndrome with left-sided deficits) Neurological Disorders: Seizure Disorder Reproductive System Hx Reproductive Disorders: No Sexually Transmitted Disease: No HIV/AIDS: No Gastrointestinal History of Gastrointestinal Di: No Musculoskeletal History of Musculoskeletal Dis: Yes Musculoskeletal Disorders: Arthritis Endocrine History of Endocrine Disorders: No HEENT Loss of Vision: Denies Hearing Impairment: Denies Cancer History of Cancer: No Psychosocial History of Psychiatric Problem: No Integumentary History of Skin or Integumenta: Yes (TAILBONE) Blood Transfusions History of Blood Disorders: No Adverse Reaction to a Blood Tr: No Reviewed Nursing Assessment Reviewed/Agree w Nursing PMH: Yes Family Medical History Significant Family History: No Pertinent Family Hx, Heart Disease Family Medial History: Hypercholesterolemia 19 FATHER Hypertension 19 FATHER Physical Exam Vital Signs Vital Signs - First Documented 05/20/17 14:54 Temp 96.1 Pulse 80 Resp 16 B/P (MAP) 131/80 (97) Pulse Ox 94 O2 Delivery Nasal Cannula O2 Flow Rate 4.00 Capillary Refill : Greater Than 3 Seconds General Appearance: WD/WN, mild distress, cachetic, thin Eyes: Bilateral Eye PERRL, Bilateral Eye EOMI, Bilateral Eye Scleral Icterus HEENT: normal ENT inspection, TMs normal, pharynx normal Neck: non-tender, full range of motion, supple Respiratory: chest non-tender, no respiratory distress, rhonchi, wheezing Cardiovascular: normal peripheral pulses, regular rate, rhythm, no murmur Gastrointestinal: normal bowel sounds, non tender Extremities: normal range of motion, non-tender, normal inspection, no calf tenderness Neurologic/Psychiatric: no motor/sensory deficits, alert, normal mood/affect, oriented x 3 Skin: warm/dry, pallor Lymphatic: no adenopathy Date of ETT Placement: Mar 09, 2017 Time of ETT Placement: 1811 Laceration Repair : Suture Size: 5-0 Progress/Results/Core Measures Suspected Sepsis Recent Fever Within 48 Hours: No Infection Criteria Present: None New/Unexplained Altered Menta: No Sepsis Screen: No Definite Risk Sepsis Diagnosis: SIRS Temperature:96.1 Pulse: 80 Respiratory Rate: 16 Laboratory Tests 05/20/17 14:55: White Blood Count 8.8 Blood Pressure 131 /80 Mean: 97 Laboratory Tests 05/20/17 14:55: Creatinine 0.81, Platelet Count 357, Total Bilirubin 0.3 Results/Orders Lab Results Laboratory Tests Test 05/20/17 14:55 Range/Units White Blood Count 8.8 4.3-11.0 10^3/uL Red Blood Count 3.77 L 4.35-5.85 10^6/uL Hemoglobin 11.5 L 13.3-17.7 G/DL Hematocrit 35 L 40-54 % Mean Corpuscular Volume 92 80-99 FL Mean Corpuscular Hemoglobin 31 25-34 PG Mean Corpuscular Hemoglobin Concent 33 32-36 G/DL Red Cell Distribution Width 15.2 H 10.0-14.5 % Platelet Count 357 130-400 10^3/uL Mean Platelet Volume 8.7 7.4-10.4 FL Neutrophils (%) (Auto) 82 H 42-75 % Lymphocytes (%) (Auto) 9 L 12-44 % Monocytes (%) (Auto) 9 0-12 % Eosinophils (%) (Auto) 0 0-10 % Basophils (%) (Auto) 0 0-10 % Neutrophils # (Auto) 7.2 1.8-7.8 X 10^3 Lymphocytes # (Auto) 0.8 L 1.0-4.0 X 10^3 Monocytes # (Auto) 0.8 0.0-1.0 X 10^3 Eosinophils # (Auto) 0.0 0.0-0.3 10^3/uL Basophils # (Auto) 0.0 0.0-0.1 10^3/uL Sodium Level 133 L 135-145 MMOL/L Potassium Level 4.1 3.6-5.0 MMOL/L Chloride Level 94 L 98-107 MMOL/L Carbon Dioxide Level 29 21-32 MMOL/L Anion Gap 10 5-14 MMOL/L Blood Urea Nitrogen 6 L 7-18 MG/DL Creatinine 0.81 0.60-1.30 MG/DL Estimat Glomerular Filtration Rate > 60 BUN/Creatinine Ratio 7 Glucose Level 109 H 70-105 MG/DL Calcium Level 8.7 8.5-10.1 MG/DL Total Bilirubin 0.3 0.1-1.0 MG/DL Aspartate Amino Transf (AST/SGOT) 18 5-34 U/L Alanine Aminotransferase (ALT/SGPT) 11 0-55 U/L Alkaline Phosphatase 99 40-136 U/L B-Type Natriuretic Peptide 71.1 <100.0 PG/ML Total Protein 7.4 6.4-8.2 GM/DL Albumin 3.6 3.2-4.5 GM/DL My Orders Orders - FAVIAN COWART BNP (05/20/17 14:52) Cbc With Automated Diff (05/20/17 14:52) Comprehensive Metabolic Panel (05/20/17 14:52) Ua Culture If Indicated (05/20/17 14:52) Ct Chest W (05/20/17 14:52) Iohexol Injection (Omnipaque 350 Mg/Ml 1 (05/20/17 15:00) Ns (Ivpb) (Sodium Chloride 0.9%) (05/20/17 15:00) Received Contrast (Contrast Received) (05/20/17 15:15) Saline Lock/Iv-Start (05/20/17 15:46) Ns Iv 1000 Ml (Sodium Chloride 0.9%) (05/20/17 15:46) Blood Culture (05/20/17 15:55) Lactic Acid Analyzer (05/20/17 15:55) Lidocaine 2% Viscous 15 Ml (Xylocaine Vi (05/20/17 16:30) Antacid Suspension (Mylanta Suspension (05/20/17 16:30) Morphine Injection (Morphine Injection (05/20/17 16:20) Gabapentin Capsule/Tablet (Neurontin Cap (05/20/17 16:30) Lamotrigine Tablet (Lamictal Tablet) (05/20/17 16:30) Medications Given in ED Current Medications Medications Dose Ordered Sig/Porfirio Route Start Time Stop Time Status Last Admin Dose Admin Iohexol 75 ml ONCE ONCE IV 05/20/17 15:00 05/20/17 15:01 DC 05/20/17 15:11 75 ML Sodium Chloride 250 ml ONCE ONCE IV 05/20/17 15:00 05/20/17 15:01 DC 05/20/17 15:11 250 ML Sodium Chloride 1,000 ml @ 150 mls/hr Q6H40M ONCE IV 05/20/17 15:46 05/20/17 18:12 DC 05/20/17 16:00 150 MLS/HR Vital Signs/I&O Vital Sign - Last 12Hours 05/20/17 14:54 Temp 96.1 Pulse 80 Resp 16 B/P (MAP) 131/80 (97) Pulse Ox 94 O2 Delivery Nasal Cannula O2 Flow Rate 4.00 Capillary Refill : Greater Than 3 Seconds Blood Pressure Mean: 97 Progress Note : Time: 14:55 Progress Note Initial evaluation completed recommended labs, CT chest and reevaluation. 1685 CT results reviewed with Dr. Jang, results discussed with the patient by Dr. Jang. Patient complaining of heartburn will give GI cocktail, Protonix 40 mg IV and morphine 2 mg IV. 1600 admission orders received per Dr. Genao, consult with Dr. Dolores valentine, cancer center notified for consult for Dr. Franco. 1615 Dr. Bernal in the emergency department the patient, recommendation for bronchoscopy tomorrow. Inpatient orders written. [address] Scans discussed with the patient and his significant other by phone. All questions answered. 171 patient admitted to the floor. Diagnostic Imaging Diagonstic Imaging: CT Plain Films/CT/US/NM/MRI: chest Comments NAME: CR [facility]UI[facility]AN[facility] REC#: [id number] PT STATUS: REG ER : 1955 PHYSICIAN: FAVIAN COWART ADMIT DATE: 05/20/17/ER Draft Date of Exam:05/20/17 CT CHEST W PROCEDURE: CT chest with contrast only. TECHNIQUE: Multiple contiguous axial images were obtained through the chest after administration of intravenous contrast. INDICATION: Shortness of air, weakness. COMPARISON: Comparison made with overlapped images obtained during an abdominal CT 02/28/2016. No previous chest CT. FINDINGS: While there is chronic air trapping and COPD present, there is an acute infiltrate in the patient's left lower lobe and to a lesser extent involving the lingular segment of the left upper lobe consistent with pneumonia. There is more mild patchy tree-in-bud nodularity and infiltrate in the right lower lobe. A spiculated nodule in the patient's left upper lobe posteriorly is present measuring 1.4 cm. Malignancy cannot be excluded unrelated to the suspected acute infiltrate. Consider metabolic PET/CT as its further evaluation. There is a left paratracheal subaortic node which measures 1.8 cm. Subcarinal space appeared negative. The AP window and ryan appeared unremarkable. Thoracic inlet and axillae are unremarkable. Degenerative subchondral cyst in the humeral heads noted. The visualized upper abdomen reveals intact adrenals and a nonacute incompletely visualized liver. IMPRESSION: 1. Pneumonia involving the left lower greater than right lower lobes and minimally involving the lingula superimposed upon chronic COPD. 2. Spiculated nodule in the left upper lobe posteriorly. Neoplasm cannot be excluded. Metabolic PET/CT recommended for further lesional characterization. 3. No convincing pathological lymph nodes. Dictated on workstation # [id number] Dict: 05/20/17 1524 Trans: 05/20/17 1537 [id number] Interpreted by: AUSTEN COLEMAN Electronically signed by: Departure Impression Impression: Primary Impression: Pneumonia, community acquired Qualified Codes: J18.9 - Pneumonia, unspecified organism Additional Impressions: Mass of left lung Epilepsy Qualified Codes: G40.919 - Epilepsy, unspecified, intractable, without status epilepticus History of tobacco abuse Disposition: ADMITTED INPATIENT Condition: Stable Departure-Patient Inst. Decision time for Depature: 15:45 Referrals: AMANDEEP GENAO DO (PCP/Family) Primary Care Physician Copy Copies To 1: AMANDEEP GENAO DO Copies To 2: RANI BERNAL AMY ARNP May 20, 2017 15:53
[2017-05-20] MEDS ORDERED: morphine INJ 10 MG/ML 1ML (SYR OR VIAL) IVP STA (16:20)
[2017-05-20] MEDS ORDERED: LIDOCAINE 2% VISCOUS 15 ML UDC PO ONE (16:30)
[2017-05-20] MEDS ORDERED: ANTACID SUSP 30 ML UDC (MYLANTA) PO ONE (16:30)
[2017-05-20] MEDS ORDERED: GABAPENTIN 600 MG (NEURONTIN) TAB PO ONE (16:30)
[2017-05-20 16:40] VITALS: BP 126/77
[2017-05-20] MEDS ORDERED: lamoTRIgine 25 MG (LaMICtal) TAB PO ONE (17:30)
[2017-05-20] MEDS ORDERED: AMLO5TAB2 PO (17:53)
[2017-05-20] MEDS ORDERED: FLUT1DIS26 IH (17:53)
[2017-05-20] MEDS ORDERED: BUDE10.2 IH (17:53)
[2017-05-20] MEDS ORDERED: CARB200T6 PO (17:53)
[2017-05-20] MEDS ORDERED: ONDANSETRON 4 MG/2 ML (SDV) Z0FRAN IV PRN (18:15)
[2017-05-20] MEDS ORDERED: INFLUENZA TRIvalent 2017-2018 0.5 ML/45 MCG SYR IM ONE (18:15)
[2017-05-20] MEDS ORDERED: CATHETER FLUSH 10 ML SYR IV PRN (18:15)
[2017-05-20] MEDS ORDERED: ACETAMINOPHEN 325 MG TABLET/CAPLET (TYLENOL) PO PRN (18:15)
[2017-05-20] MEDS ORDERED: PIPERACILLIN SODIUM/TAZOBACTAM 4.5 GM in NS (IVPB) 100 ML IV NR (18:15)
[2017-05-20 18:24] LABS: PROTHROMBIN TIME PATIENT 13.5 SEC (12.2-14.7)
[2017-05-20] MEDS: RT-ALBUTEROL/IPRATROPIUM 3 ML (DUONEB) VIAL IH SCH ×2 (18:41→21:52)
[2017-05-20] MEDS ORDERED: RT-ALBUTEROL/IPRATROPIUM 3 ML (DUONEB) VIAL INH PRN (19:00)
[2017-05-20 20:00] VITALS: BP 120/60
[2017-05-20] MEDS: NS IV 1000 ML 1,000 ML IV SCH ×2 (20:12→20:34)
[2017-05-20] MEDS: PANTOPRAZOLE 40 MG/10 ML (PROTONIX) VIAL IV SCH (20:34)
[2017-05-20] MEDS ORDERED: carBAMazepine 200 MG (TEGretol) TAB PO SCH (23:00)
[2017-05-20] MEDS ORDERED: PHENYTOIN 100 MG (DILANTIN) CAP PO SCH (23:00)
[2017-05-20] MEDS: PIPERACILLIN SODIUM/TAZOBACTAM 4.5 GM in NS (IVPB) 100 ML IV SCH (23:54)
[2017-05-20] MEDS: GABAPENTIN 300 MG (NEURONTIN) CAP PO SCH (23:54)
[2017-05-21] VITALS: BP 150/74
[2017-05-21] MEDS: RT-ALBUTEROL/IPRATROPIUM 3 ML (DUONEB) VIAL IH SCH ×6 (01:54→22:07)
[2017-05-21] MEDS ORDERED: lamoTRIgine 25 MG (LaMICtal) TAB PO SCH (03:00)
[2017-05-21] MEDS ORDERED: carBAMazepine 200 MG (TEGretol) TAB PO SCH ×3 (03:00→23:00)
[2017-05-21 04:04] VITALS: BP 119/73
--- NOTE | 2017-05-21 05:18 | Pulmonary Consultation ---
History of Present Illness History of Present Illness Date of Consultation 05/20/17 Late Note for 05/20 Today is 05/21/17 Time Seen by Provider: 17:00 Date of Admission History of Present Illness 61yo with hx of severe oxygen dependent COPD 3l/min and persistent wt loss ( 17lbs over the last month) presentes to ED secondary to worsening SOB, body aches, and weakness. Pt is known to my office and was scheduled for CT of the chest 04/17 however he missed that appt secondary to acute illness. He has hx of multiple hospitalizations. CT scan in ED shows LLL infiltrate and a left mid lung spiculated lung nodule. PT denies productive cough, fever, or hemoptysis. I am consulted for pulmonary management. Allergies and Home Medications Allergies Coded Allergies: aspirin (Unverified Allergy, Mild, DOES NOT WORK WELL W/ OTHER MEDS, ) ibuprofen (Unverified Allergy, Mild, 08/10/15) Home Medications Albuterol Sulfate 2.5 Mg/3 Ml Vial.neb, 2.5 MG NEB 5XD PRN for SHORTNESS OF BREATH, (Reported) Albuterol Sulfate 1 Puff Puff, 2 PUFF IH Q6H PRN for SHORTNESS OF BREATH, ( Reported) 1 PUFF = 90 MCG Amlodipine Besylate 5 Mg Tablet, 5 MG PO DAILY, (Reported) Atorvastatin Calcium 10 Mg Tablet, 10 MG PO 0200, (Reported) Budesonide/Formoterol Fumarate 10.2 Gm Hfa.aer.ad, 2 PUFF IH BID, (Reported) Carbamazepine 200 Mg Tablet, 200 MG PO 2300, (Reported) Carbamazepine 200 Mg Tablet, 400 MG PO 0200,0800, (Reported) TAKES 2 (200 MG) TABLETS Fluticasone/Salmeterol 1 Each Blst.w.dev, 1 PUFF IH BID, (Reported) Gabapentin 300 Mg Capsule, 300 MG PO 2300, (Reported) Gabapentin 600 Mg Tablet, 600 MG PO 0800,1500, (Reported) Lamotrigine 100 Mg Tablet, 100 MG PO 1500,0200, (Reported) Lamotrigine 25 Mg Tablet, 25 MG PO 1500,2300, (Reported) Lisinopril 20 Mg Tablet, 20 MG PO DAILY, (Reported) Meloxicam 15 Mg Tablet, 15 MG PO 1500, (Reported) Pantoprazole Sodium 40 Mg Tablet.dr 40 MG PO DAILY, (Reported) Phenytoin Sodium Extended 100 Mg Capsule, 200 MG PO 1500, (Reported) TAKES 2 (100 MG) CAPSULES Phenytoin Sodium Extended 100 Mg Capsule, 100 MG PO 0800,2300, (Reported) Tiotropium Lydia 1 Inh Aerp, 1 CAP IH HS, (Reported) Past Xiqadev-Dozrzp-Qsqtlc Hx Patient Social History Alcohol Use: Denies Use Recreational Drug Use: Yes (not current, 15 years ago-ETOH and PO drugs) Smoking Status: Former Smoker Type Used: Cigarettes Former Smoker, Quit: Mar 02, 2017 Recent Foreign Travel: No Contact w/Someone Who Travel: No Recent Infectious Disease Expo: No Recent Hopitalizations: Yes (RESP DISTRESS, BROKEN NOSE) Immunizations Up To Date PED Vaccines UTD: Yes Seasonal Allergies Seasonal Allergies: Yes Surgeries History of Surgeries: Yes Surgeries: Gallbladder Respiratory History of Respiratory Disorde: Yes (tobaccoism) Respiratory Disorders: Asthma, Sleep Apnea, COPD Currently Using CPAP: No Currently Using BIPAP: Yes Cardiovascular History of Cardiac Disorders: Yes Cardiac Disorders: High Cholesterol, Hypertension Neurological History of Neurological Disord: Yes (post polio syndrome with left-sided deficits) Neurological Disorders: Seizure Disorder Reproductive System Hx Reproductive Disorders: No Sexually Transmitted Disease: No HIV/AIDS: No Genitourinary History of Genitourinary Disor: No Gastrointestinal History of Gastrointestinal Di: No Musculoskeletal History of Musculoskeletal Dis: Yes Musculoskeletal Disorders: Arthritis Endocrine History of Endocrine Disorders: No HEENT History of HEENT Disorders: No Loss of Vision: Denies Hearing Impairment: Denies Cancer History of Cancer: No Psychosocial History of Psychiatric Problem: No Integumentary History of Skin or Integumenta: No Blood Transfusions History of Blood Disorders: No Adverse Reaction to a Blood Tr: No Reviewed Nursing Assessment Reviewed/Agree w Nursing PMH: Yes Family Medical History Significant Family History: No Pertinent Family Hx, Heart Disease Family Medial History: Hypercholesterolemia 19 FATHER Hypertension 19 FATHER Review of Systems Time Seen by Provider: 05:23 Constitutional: Chills, Sweats, Weakness, Malaise, No: Fever Eyes: No: Pain, Vision change, Conjunctivae inflammation, Eyelid inflammation, Other, Redness ENT: Nose congestion, No: Ear pain, Ear discharge, Nose pain, Nose discharge, Mouth pain, Mouth swelling, Throat pain, Throat swelling, Other Respiratory: Cough, Dry, Shortness of breath, SOB with excertion, Wheezing, No : Hemoptysis Cardiovascular: Orthopnea, Paroxysmal Noc. Dyspnea, Lt Headedness Gastrointestinal: No: Nausea, Vomiting, Abdominal Pain, Diarrhea, Constipation , Melena, Hematochezia, Other Neurological: Weakness, Incoordination, Confusion Exam Exam Vital Signs Date Time Temp Pulse Resp B/P (MAP) Pulse Ox O2 Delivery O2 Flow Rate FiO2 05/21/17 04:04 98.6 75 16 119/73 (88) 95 Nasal Cannula 5.00 05/21/17 01:54 94 Nasal Cannula 5.00 05/21/17 00:00 97.7 74 20 150/74 (99) 95 Nasal Cannula 5.00 05/20/17 21:53 94 Nasal Cannula 5.00 05/20/17 21:00 Nasal Cannula 5.00 05/20/17 20:00 98.3 76 16 120/60 (80) 94 Nasal Cannula 5.00 05/20/17 18:49 82 90 05/20/17 18:46 Nasal Cannula 5.00 05/20/17 17:50 Nasal Cannula 5.00 05/20/17 17:14 96.1 05/20/17 17:00 96.9 81 18 140/73 (93) 92 Nasal Cannula 3.00 05/20/17 16:40 98.1 92 19 126/77 (93) 91 Nasal Cannula 5.00 05/20/17 14:54 96.1 80 16 131/80 (97) 94 Nasal Cannula 4.00 I & O 05/21/17 07:00 Intake Total 200 ml Output Total 200 ml Balance 0 ml General Appearance: Anxious, Mild Distress HEENT: Pharynx Normal Neck: Normal Inspection, Non Tender, Supple Respiratory: No Accessory Muscle Use, No Respiratory Distress, Decreased Breath Sounds Cardiovascular: Regular Rate, Rhythm Capillary Refill: Greater Than 3 Seconds Gastrointestinal: normal bowel sounds, non tender, soft, no organomegaly, no pulsatile mass Extremity: Normal Capillary Refill, Normal Inspection Neurologic/Psychiatric: Alert, Oriented x3 Skin: Normal Color, Warm/Dry Lymphatic: No Adenopathy Results Lab Laboratory Tests 05/20/17 14:55 Assessment/Plan Assessment/Plan Acute on chronic respiratory failure Severe COPD oxygen dependent with AE -SVNs, Oxygen -BiPAP PRN New LLL infiltrate r/o PNA -Check BNP, mornitor -Start Zosyn Left lung spiculated mass -Will plan for bronchosocpy with EBUS in AM -NPO after midnight -Pt agrees to procedure. Risk and benefits explained to patient Hyponatremia -monitor Hx of seizures -restart home meds 255 Clinical Quality Measures DVT/VTE Risk/Contraindication: Risk Factor Score Per Nursin RFS Level Per Nursing on Admit: 3=High RANI PACHECO DO May 21, 2017 05:18
--- NOTE | 2017-05-21 05:28 | Pulmonary Progress Note ---
Subjective Time Seen by Provider: 05:25 Subjective/Events-last exam C/O SOB pt is requiring more oxygen this AM at 5 l/min. Exam Exam Vital Signs Date Time Temp Pulse Resp B/P (MAP) Pulse Ox O2 Delivery O2 Flow Rate FiO2 05/21/17 04:04 98.6 75 16 119/73 (88) 95 Nasal Cannula 5.00 05/21/17 01:54 94 Nasal Cannula 5.00 05/21/17 00:00 97.7 74 20 150/74 (99) 95 Nasal Cannula 5.00 05/20/17 21:53 94 Nasal Cannula 5.00 05/20/17 21:00 Nasal Cannula 5.00 05/20/17 20:00 98.3 76 16 120/60 (80) 94 Nasal Cannula 5.00 05/20/17 18:49 82 90 05/20/17 18:46 Nasal Cannula 5.00 05/20/17 17:50 Nasal Cannula 5.00 05/20/17 17:14 96.1 05/20/17 17:00 96.9 81 18 140/73 (93) 92 Nasal Cannula 3.00 05/20/17 16:40 98.1 92 19 126/77 (93) 91 Nasal Cannula 5.00 05/20/17 14:54 96.1 80 16 131/80 (97) 94 Nasal Cannula 4.00 I & O 05/21/17 07:00 Intake Total 200 ml Output Total 200 ml Balance 0 ml General Appearance: Anxious, Mild Distress HEENT: Pharynx Normal Neck: Normal Inspection, Non Tender, Supple Respiratory: No Accessory Muscle Use, No Respiratory Distress, Decreased Breath Sounds Cardiovascular: Regular Rate, Rhythm Capillary Refill: Greater Than 3 Seconds Gastrointestinal: normal bowel sounds, non tender, soft, no organomegaly, no pulsatile mass Extremity: Normal Capillary Refill, Normal Inspection Neurologic/Psychiatric: Alert, Oriented x3 Skin: Normal Color, Warm/Dry Lymphatic: No Adenopathy Results Lab Laboratory Tests 05/20/17 14:55 Assessment/Plan Assessment/Plan Acute on chronic respiratory failure Severe COPD oxygen dependent with AE -SVNs, Oxygen -BiPAP PRN -Start SOlumedrol New LLL infiltrate r/o PNA -, mornitor -repeat labs -Continue Zosyn Left lung spiculated mass -Will plan for bronchosocpy with EBUS This AM -Pt agrees to procedure. Risk and benefits explained to patient Hyponatremia -monitor Hx of seizures -restart home meds 233 Clinical Quality Measures DVT/VTE Risk/Contraindication: Risk Factor Score Per Nursin RFS Level Per Nursing on Admit: 3=High RANI PACHECO DO May 21, 2017 05:28
[2017-05-21 05:44] LABS: BASOPHILS % (AUTO) 0 % (0-10); EOSINOPHILS % (AUTO) 0 % (0-10); HEMATOCRIT 27 % (40-54); LYMPHOCYTES # (AUTO) 0.7 X 10^3 (1.0-4.0); LYMPHOCYTES % (AUTO) 11 % (12-44); MEAN CORPUSCULAR HEMOGLOBIN 30 PG (25-34); MEAN CORPUSCULAR HGB CONC 33 G/DL (32-36); MEAN CORPUSCULAR VOLUME 92 FL (80-99); MEAN PLATELET VOLUME 8.6 FL (7.4-10.4); MONOCYTES # (AUTO) 0.8 X 10^3 (0.0-1.0); MONOCYTES % (AUTO) 11 % (0-12); NEUTROPHILS # (AUTO) 5.3 X 10^3 (1.8-7.8); NEUTROPHILS % (AUTO) 78 % (42-75); PLATELET COUNT 309 10^3/uL (130-400); RED BLOOD COUNT 2.99 10^6/uL (4.35-5.85); RED CELL DISTRIBUTION WIDTH 15.3 % (10.0-14.5); WHITE BLOOD COUNT 6.8 10^3/uL (4.3-11.0)
[2017-05-21] MEDS: PANTOPRAZOLE 40 MG/10 ML (PROTONIX) VIAL IV SCH (05:51)
[2017-05-21] MEDS: methylPREDNISolone 40 MG/ML (Solu-MEDROL) VIAL IV SCH ×4 (05:51→23:02)
[2017-05-21 06:02] LABS: ALANINE AMINOTRANSFERASE 8 U/L (0-55); ALBUMIN 2.8 GM/DL (3.2-4.5); ALKALINE PHOSPHATASE 86 U/L (40-136); BILIRUBIN,TOTAL 0.3 MG/DL (0.1-1.0); BUN/CREATININE RATIO 11; CALCIUM 7.6 MG/DL (8.5-10.1); CARBON DIOXIDE 26 MMOL/L (21-32); CHLORIDE 98 MMOL/L (98-107); CREATININE SERUM 0.57 MG/DL (0.60-1.30); GFR ESTIMATED > 60; GLUCOSE 102 MG/DL (70-105); MAGNESIUM 2.1 MG/DL (1.8-2.4); PHOSPHORUS 2.1 MG/DL (2.3-4.7); POTASSIUM 4.1 MMOL/L (3.6-5.0); SODIUM 133 MMOL/L (135-145); TOTAL PROTEIN 5.7 GM/DL (6.4-8.2)
[2017-05-21] MEDS ORDERED: proPOfol 200 MG/20 ML (DIPRIVAN) VIAL IV ONE (06:47)
[2017-05-21] MEDS ORDERED: SUCCINYLCHOLINE INJ 100 MG/5 ML SYR ONE (06:47)
[2017-05-21] MEDS ORDERED: MIDAZOLAM 2 MG/2 ML (VERSED) VIAL ONE (06:48)
[2017-05-21] MEDS ORDERED: LIDOCAINE PF 2% 5 ML (XYLOCAINE) VIAL ONE (06:48)
[2017-05-21] MEDS ORDERED: LACTATED RINGERS 0 ML IV ONE (07:35)
[2017-05-21] MEDS ORDERED: LACTATED RINGERS 1,000 ML IV ONE (08:15)
--- NOTE | 2017-05-21 08:21 | History & Physicial ---
History of Present Illness History of Present Illness Reason for visit/HPI Patient came to the office yesterday with his significant other. Patient lost 17 pounds within the last month. Patient now unable to walk and having difficulty in getting around which is new. Patient not eating. He has history of COPD with smoking. Patient sent out to the emergency room. CAT scan of the chest shows spiculated lesion and pneumonia. Patient was sent [facility] less than a month ago for nasal bleed. Patient has history of seizures. Patient will o'clock he just came [place] Date of Admission May 20, 2017 at 16:28 Time Seen by Provider: 08:15 I consulted on this patient on 05/21/17 08:17 Attending Physician Micky Genao DO Admitting Physician Micky Genao DO Consult Allergies and Home Medications Allergies Coded Allergies: aspirin (Unverified Allergy, Mild, DOES NOT WORK WELL W/ OTHER MEDS, ) ibuprofen (Unverified Allergy, Mild, 08/10/15) Home Medications Albuterol Sulfate 2.5 Mg/3 Ml Vial.neb, 2.5 MG NEB 5XD PRN for SHORTNESS OF BREATH, (Reported) Albuterol Sulfate 1 Puff Puff, 2 PUFF IH Q6H PRN for SHORTNESS OF BREATH, ( Reported) 1 PUFF = 90 MCG Amlodipine Besylate 5 Mg Tablet, 5 MG PO DAILY, (Reported) Atorvastatin Calcium 10 Mg Tablet, 10 MG PO 0200, (Reported) Budesonide/Formoterol Fumarate 10.2 Gm Hfa.aer.ad, 2 PUFF IH BID, (Reported) Carbamazepine 200 Mg Tablet, 200 MG PO 2300, (Reported) Carbamazepine 200 Mg Tablet, 400 MG PO 0200,0800, (Reported) TAKES 2 (200 MG) TABLETS Fluticasone/Salmeterol 1 Each Blst.w.dev, 1 PUFF IH BID, (Reported) Gabapentin 300 Mg Capsule, 300 MG PO 2300, (Reported) Gabapentin 600 Mg Tablet, 600 MG PO 0800,1500, (Reported) Lamotrigine 100 Mg Tablet, 100 MG PO 1500,0200, (Reported) Lamotrigine 25 Mg Tablet, 25 MG PO 1500,2300, (Reported) Lisinopril 20 Mg Tablet, 20 MG PO DAILY, (Reported) Meloxicam 15 Mg Tablet, 15 MG PO 1500, (Reported) Pantoprazole Sodium 40 Mg Tablet.dr, 40 MG PO DAILY, (Reported) Phenytoin Sodium Extended 100 Mg Capsule, 200 MG PO 1500, (Reported) TAKES 2 (100 MG) CAPSULES Phenytoin Sodium Extended 100 Mg Capsule, 100 MG PO 0800,2300, (Reported) Tiotropium [place] 1 Inh Aerp, 1 CAP IH HS, (Reported) Past Jebgpct-Mqkjsv-Izmahp Hx Patient Social History Marrital Status: single Alcohol Use: Denies Use Recreational Drug Use: Yes (not current, 15 years ago-ETOH and PO drugs) Smoking Status: Former Smoker Former Smoker, Quit: Mar 02, 2017 Type Used: Cigarettes Physical Abuse Screen: No Sexual Abuse: No Recent Foreign Travel: No Contact w/other who traveled: No Recent Hopitalizations: Yes (RESP DISTRESS, BROKEN NOSE) Recent Infectious Disease Expo: No Immunizations Up To Date Pediatric: Yes Seasonal Allergies Seasonal Allergies: Yes Surgeries Yes Gallbladder Respiratory Yes (tobaccoism) COPD, Emphysema, Pneumonia Currently Using CPAP: No Currently Using BIPAP: Yes Cardiovascular Yes High Cholesterol, Hypertension 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) Seizure Disorder Reproductive System Hx Reproductive Disorders: No Sexually Transmitted Disease: No HIV/AIDS: No Genitourinary No Gastrointestinal No Musculoskeletal Yes Arthritis Endocrine History of Endocrine Disorders: No HEENT History of HEENT Disorders: No Loss of Vision: Denies Hearing Impairment: Denies Cancer No Psychosocial History of Psychiatric Problem: No Integumentary History of Skin or Integumenta: No Blood Transfusions History of Blood Disorders: No Adverse Reaction to a Blood Tr: No Reviewed Nursing Assessment Reviewed/Agree w Nursing PMH: Yes Family Medical History Significant Family History: No Pertinent Family Hx, Heart Disease Family Hx: Hypercholesterolemia 19 FATHER Hypertension 19 FATHER Constitutional: malaise, weakness, weight loss EENTM: no symptoms reported Respiratory: short of breath Cardiovascular: other (Patient short of breath with exertion) Gastrointestinal: nausea, other (Patient not eating and lost 17 pounds within a month) Genitourinary: no symptoms reported Physical Exam Vital Signs Vital Signs - First Documented 05/20/17 14:54 Temp 96.1 Pulse 80 Resp 16 B/P (MAP) 131/80 (97) Pulse Ox 94 O2 Delivery Nasal Cannula O2 Flow Rate 4.00 Capillary Refill : Greater Than 3 Seconds General Appearance: No Apparent Distress, Thin Eyes: Bilateral Eye Normal Inspection HEENT: Normal ENT Inspection Neck: Full Range of Motion Respiratory: Decreased Breath Sounds Cardiovascular: Regular Rate, Rhythm Gastrointestinal: Non Tender, Soft Assessment/Plan Assessment and Plan Pneumonia. Spiculated lesion of lung. COPD. History of seizures. Recent weight loss. Weakness. Malaise. Probable cancer of lung. Problems: Clinical Quality Measures DVT/VTE Risk/Contraindication: Risk Factor Score Per Nursin RFS Level Per Nursing on Admit: 3=High MICKY GENAO DO May 21, 2017 08:21
--- NOTE | 2017-05-21 08:34 | Pulmonary Procedures ---
Pulmonary Procedures Date of Procedure Date of Service: May 21, 2017 Bronch Bronchoscopy with fleuroscopy, brush and BAL of LLL followed by EBUS with bx of station 7 and 10R lymph nodes Preop DX: lung mass with mediastinal lymphadenopathy PostOP DX: same Complications: None Pt was sedated per anesthesia. Bronchoscopy was advanced through the ED tube and an anatomical undertaken down to the segmental bronchi bilaterally. Fleuroscopy, with brush and BAL of LLL. No endobronchial lesions noted. EBUS was then advanced through ET tube and the mediastinum was US. Station 4 R lymph nodes were sampled via needle bx under US guidance. Pt tolerated procedure well. No complications noted. RANI PACHECO DO May 21, 2017 08:34
[2017-05-21] MEDS ORDERED: SEVOFLURANE (ULTANE) 15 ML INHAL SOLN ONE (08:37)
--- NOTE | 2017-05-21 09:03 | Diagnostic Imaging Report ---
INDICATION: Post bronchoscopy. Time of exam 8:47 AM Correlation is made with prior study from 04/08/2017. The heart size is stable. There is patchy airspace infiltrate in the left lung base and to a lesser degree in the medial portion of the right base. No pneumothorax is seen status post bronchoscopy. No effusion is identified. IMPRESSION: Bilateral infiltrates, left greater. There is no evidence of pneumothorax. Dictated by: Dictated on workstation # [id number]
--- NOTE | 2017-05-21 09:35 | Diagnostic Imaging Report ---
INDICATION: Bronchoscopy Fluoroscopy was utilized during bronchoscopy with digital images obtained over the lower chest revealing bronchoscope and extending catheter near the costophrenic sulcus. IMPRESSION: Images obtained for bronchoscopic guidance as described. Dictated by: Dictated on workstation # [id number]
[2017-05-21] MEDS: PIPERACILLIN SODIUM/TAZOBACTAM 4.5 GM in NS (IVPB) 100 ML IV SCH ×3 (09:43→23:05)
[2017-05-21 09:45] VITALS: BP 136/69
[2017-05-21 11:40] VITALS: BP 157/66
[2017-05-21] MEDS: lamoTRIgine 25 MG (LaMICtal) TAB PO SCH (14:04)
[2017-05-21] MEDS: PHENYTOIN 100 MG (DILANTIN) CAP PO SCH ×2 (14:05→23:02)
[2017-05-21] MEDS: carBAMazepine 200 MG (TEGretol) TAB PO SCH ×2 (14:05→23:03)
[2017-05-21] MEDS: GABAPENTIN 600 MG (NEURONTIN) TAB PO SCH (14:05)
--- NOTE | 2017-05-21 14:54 | Anesthesia-General Post-Op ---
General Patient Condition Mental Status/LOC: Same as Preop Cardiovascular: Satisfactory Nausea/Vomiting: Absent Respiratory: Satisfactory Pain: Controlled Complications: Absent Post Op Complications Complications None Follow Up Care/Instructions Patient Instructions None needed. Anesthesia/Patient Condition Patient Condition Patient is doing well, no complaints, stable vital signs, no apparent adverse anesthesia problems. No complications reported per nursing. CHELA RANGEL CRNA May 21, 2017 14:54
[2017-05-21 16:00] VITALS: BP 143/81
[2017-05-21] MEDS ORDERED: PANTOPRAZOLE 40 MG (PROTONIX) TAB PO SCH (17:00)
--- NOTE | 2017-05-21 19:52 | CONSULTATION REPORT ---
DATE OF SERVICE: 05/21/2017 The patient is admitted to room 424. REFERRING AND PRIMARY PHYSICIAN: Micky Feng DO IMPRESSION: 1. A 61-year-old male admitted with left lower lobe pneumonia. 2. Left upper lobe nodule posteriorly of undetermined etiology. 3. Chronic obstructive pulmonary disease with exacerbation. 4. History of seizure disorder that is longstanding and on anti-seizure medications. RECOMMENDATIONS: 1. Continue management of pneumonia as you are doing with broad spectrum antibiotics. 2. Agree with bronchoscopy brushings and washings as was completed today and await cytology reports when available. 3. If the bronchoscopy results are negative, the patient may need a PET-CT scan after he is treated for the pneumonia and stable. This could be done on an outpatient basis. 4. If the PET-CT scan is abnormal, he will need either a CT-guided biopsy or an excisional biopsy for diagnosis. 5. I would like to see him back after a tissue diagnosis is obtained to discuss about the prognosis and further treatment recommendations. HISTORY OF PRESENT ILLNESS: The patient is a 61-year-old male who was admitted to the hospital with 1 week history of fever and worsening shortness of breath. He was evaluated at the emergency room and was found to have left lower lobe pneumonia. The CT scan also showed a soft tissue pulmonary nodule in the left upper lobe posteriorly. Because of this, a medical oncology consultation was requested. PAST MEDICAL HISTORY: Significant for seizure disorder since the age of 6 years. He is on anti-seizure medications, but still has breakthrough seizures intermittently. The last time he had a seizure episode was more than a month ago according to the patient. He gives history of polio when he was young with a left-sided residual weakness. History of COPD diagnosed approximately 10 years ago. No other medical problems. PAST SURGICAL HISTORY: Include a cholecystectomy approximately two years ago. SOCIAL HISTORY: The patient was six times in the past and is . He is living with her current girlfriend since the last 16 years. He has four children from a previous marriage, two of his children live close by he has contacts too. He does not have any contact with the other two children. He worked at a [employer] for 29 years and lost his job approximately two years ago. He has a total of [id number] history of smoking. He has smoked 1-1/2 packs of cigarettes a day for approximately 50 years and quit this within the last two years. He denied any recreational drug use. He has used alcohol regularly for about 10 years, but quit alcohol use in the mid . FAMILY HISTORY: Unremarkable with no major malignancies in the family that he knows of. His father of coronary artery disease at the age of 33. PHYSICAL EXAMINATION: GENERAL: Today showed an elderly male, thin appearing, awake and answering questions appropriately and in no acute distress. VITAL SIGNS: His temperature was 98.7, pulse rate of 63, respirations 18, blood pressure 157/66, oxygen saturation was 100% on 3 liters of oxygen by nasal cannula. HEENT: Normocephalic, extraocular muscles intact, conjunctivae pink, oral mucosa moist. NECK: Supple, with no JVD. No cervical, supraclavicular or axillary lymphadenopathy palpable. CHEST: Symmetrical. LUNGS: Slightly diminished breath sounds bilaterally with few rhonchi on the left lower lung lo. No wheezes or rales heard. CARDIOVASCULAR: Regular in rate and rhythm. No murmurs or gallops heard. ABDOMEN: Soft, nontender with no hepatosplenomegaly or other masses palpable. EXTREMITIES: Showed no edema. Post-polio changes of the left upper and lower extremities with motor strength of 4/5 on the left side. LABORATORY DATA: CBC done today showed WBC 6.8, hemoglobin 9.0, MCV 92, platelet count 309,000 with neutrophil count of 5.3. Chemistry panel showed sodium level of 133 with rest of the electrolytes normal. BUN was 6 and creatinine 0.57 with GFR more than 60 mL per minute. Liver function studies were normal except albumin level of 2.8. CT scan of the chest done yesterday showed pneumonia involving the left lower lobe with a few patches on the right lower lobe. Spiculated nodule in the left upper lobe posteriorly measuring 1.4 cm. There is a left paratracheal subaortic node measuring 1.8 cm. A PET-CT scan was recommended for further evaluation. Thank you for allowing me to participate in this patient's care. I will follow the patient with you and make appropriate recommendations. Job ID: [id number] DocumentID: [id number] Dictated Date: 05/21/2017 16:46:08 [employer] Date: 05/21/2017 19:51:59 Dictated By: STEPHEN PRICE MD
[2017-05-21] MEDS: NS IV 1000 ML 1,000 ML IV SCH (21:40)
[2017-05-21] MEDS ORDERED: GABAPENTIN 300 MG (NEURONTIN) CAP PO SCH (23:00)
[2017-05-21] MEDS: GABAPENTIN 300 MG (NEURONTIN) CAP PO SCH (23:03)
[2017-05-21 23:42] VITALS: BP 109/60
[2017-05-22] MEDS: NS IV 1000 ML 1,000 ML IV SCH ×2 (02:12→23:10)
[2017-05-22] MEDS: RT-ALBUTEROL/IPRATROPIUM 3 ML (DUONEB) VIAL IH SCH ×6 (02:30→22:42)
[2017-05-22] MEDS: carBAMazepine 200 MG (TEGretol) TAB PO SCH ×4 (03:01→23:09)
[2017-05-22] MEDS: ATORVASTATIN 10 MG (LIPITOR) TABLET PO SCH (03:01)
[2017-05-22] MEDS: lisINopril 20 MG (PRINIVIL) TABLET PO SCH (03:01)
[2017-05-22] MEDS: lamoTRIgine 25 MG (LaMICtal) TAB PO SCH ×2 (03:01→15:50)
[2017-05-22] MEDS: methylPREDNISolone 40 MG/ML (Solu-MEDROL) VIAL IV SCH ×4 (05:55→23:08)
[2017-05-22 06:10] LABS: BASOPHILS % (AUTO) 0 % (0-10); EOSINOPHILS % (AUTO) 0 % (0-10); HEMATOCRIT 28 % (40-54); HEMOGLOBIN 8.9 G/DL (13.3-17.7); LYMPHOCYTES # (AUTO) 0.7 X 10^3 (1.0-4.0); LYMPHOCYTES % (AUTO) 17 % (12-44); MEAN CORPUSCULAR HEMOGLOBIN 30 PG (25-34); MEAN CORPUSCULAR HGB CONC 32 G/DL (32-36); MEAN CORPUSCULAR VOLUME 93 FL (80-99); MEAN PLATELET VOLUME 8.8 FL (7.4-10.4); MONOCYTES # (AUTO) 0.5 X 10^3 (0.0-1.0); MONOCYTES % (AUTO) 13 % (0-12); NEUTROPHILS # (AUTO) 2.8 X 10^3 (1.8-7.8); NEUTROPHILS % (AUTO) 70 % (42-75); PLATELET COUNT 320 10^3/uL (130-400); RED BLOOD COUNT 2.98 10^6/uL (4.35-5.85)
[2017-05-22 06:42] LABS: ALANINE AMINOTRANSFERASE 8 U/L (0-55); ALBUMIN 2.8 GM/DL (3.2-4.5); ALKALINE PHOSPHATASE 83 U/L (40-136); BILIRUBIN,TOTAL 0.2 MG/DL (0.1-1.0); BUN/CREATININE RATIO 10; CALCIUM 8.1 MG/DL (8.5-10.1); CARBON DIOXIDE 27 MMOL/L (21-32); CHLORIDE 100 MMOL/L (98-107); CREATININE SERUM 0.59 MG/DL (0.60-1.30); GFR ESTIMATED > 60; GLUCOSE 112 MG/DL (70-105); POTASSIUM 4.7 MMOL/L (3.6-5.0); SODIUM 136 MMOL/L (135-145); TOTAL PROTEIN 5.8 GM/DL (6.4-8.2)
--- NOTE | 2017-05-22 07:42 | Pulmonary Progress Note ---
Subjective Time Seen by Provider: 07:41 Exam Exam Vital Signs Date Time Temp Pulse Resp B/P (MAP) Pulse Ox O2 Delivery O2 Flow Rate FiO2 05/22/17 07:00 91 Nasal Cannula 3.00 05/22/17 02:30 94 Nasal Cannula 3.00 05/21/17 23:42 97.3 62 16 109/60 (76) 93 Nasal Cannula 3.00 05/21/17 22:09 97 Nasal Cannula 3.00 05/21/17 20:20 Nasal Cannula 3.00 05/21/17 18:57 92 Nasal Cannula 3.00 05/21/17 16:00 98.3 65 18 143/81 (101) 94 Nasal Cannula 3.00 05/21/17 14:59 96 Nasal Cannula 3.00 05/21/17 11:40 98.7 63 18 157/66 (96) 100 Nasal Cannula 3.00 05/21/17 10:56 96 Nasal Cannula 5.00 05/21/17 09:45 97.8 73 20 136/69 (91) 95 Nasal Cannula 5.00 5.00 05/21/17 09:35 Nasal Cannula 5.00 I & O 05/22/17 07:00 Intake Total 4130 ml Output Total 3600 ml Balance 530 ml General Appearance: No Apparent Distress, Thin HEENT: Normal ENT Inspection Neck: Full Range of Motion Respiratory: Decreased Breath Sounds Cardiovascular: Regular Rate, Rhythm Capillary Refill: Greater Than 3 Seconds Gastrointestinal: normal bowel sounds, non tender, soft, no organomegaly, no pulsatile mass Extremity: Normal Capillary Refill, Normal Inspection Neurologic/Psychiatric: Alert, Oriented x3 Skin: Normal Color, Warm/Dry Lymphatic: No Adenopathy Results Lab Laboratory Tests 05/20/17 14:55 05/21/17 05:25 05/22/17 05:50 Assessment/Plan Assessment/Plan Acute on chronic respiratory failure Severe COPD oxygen dependent with AE -SVNs, Oxygen -BiPAP PRN -SOlumedrol New LLL infiltrate r/o PNA -mornitor -Zosyn Left lung spiculated mass -S/P bronch with EBUS -Pt will need outpatient PET scan Hyponatremia -monitor Hx of seizures 232 Clinical Quality Measures DVT/VTE Risk/Contraindication: Risk Factor Score Per Nursin RFS Level Per Nursing on Admit: 3=High Contraindications-Pharm: Other *list below* RANI PACHECO DO May 22, 2017 07:42
[2017-05-22 08:00] VITALS: BP 149/72
--- NOTE | 2017-05-22 08:15 | Progress Note (SOAP) ---
Subjective Time Seen by Provider: 08:15 Subjective/Events-last exam patient feels he is improving. Patient doing better. Plan on discharge tomorrow Objective Exam Vital Signs Date Time Temp Pulse Resp B/P (MAP) Pulse Ox O2 Delivery O2 Flow Rate FiO2 05/22/17 07:00 91 Nasal Cannula 3.00 05/22/17 02:30 94 Nasal Cannula 3.00 05/21/17 23:42 97.3 62 16 109/60 (76) 93 Nasal Cannula 3.00 05/21/17 22:09 97 Nasal Cannula 3.00 05/21/17 20:20 Nasal Cannula 3.00 05/21/17 18:57 92 Nasal Cannula 3.00 05/21/17 16:00 98.3 65 18 143/81 (101) 94 Nasal Cannula 3.00 05/21/17 14:59 96 Nasal Cannula 3.00 05/21/17 11:40 98.7 63 18 157/66 (96) 100 Nasal Cannula 3.00 05/21/17 10:56 96 Nasal Cannula 5.00 05/21/17 09:45 97.8 73 20 136/69 (91) 95 Nasal Cannula 5.00 5.00 05/21/17 09:35 Nasal Cannula 5.00 I & O 05/22/17 07:00 Intake Total 4130 ml Output Total 3600 ml Balance 530 ml Capillary Refill : Greater Than 3 Seconds General Appearance: No Apparent Distress, Thin HEENT: Normal ENT Inspection Neck: Normal Inspection Respiratory: No Accessory Muscle Use, No Respiratory Distress, Decreased Breath Sounds Cardiovascular: Regular Rate, Rhythm Gastrointestinal: non tender, soft Results Lab Laboratory Tests 05/22/17 05:50: White Blood Count 4.0L, Red Blood Count 2.98L, Hemoglobin 8.9L, Hematocrit 28L, Mean Corpuscular Volume 93, Mean Corpuscular Hemoglobin 30, Mean Corpuscular Hemoglobin Concent 32, Red Cell Distribution Width 15.0H, Platelet Count 320, Mean Platelet Volume 8.8, Neutrophils (%) (Auto) 70, Lymphocytes (%) (Auto) 17, Monocytes (%) (Auto) 13H, Eosinophils (%) (Auto) 0, Basophils (%) (Auto) 0, Neutrophils # (Auto) 2.8, Lymphocytes # (Auto) 0.7L, Monocytes # (Auto) 0.5, Eosinophils # (Auto) 0.0, Basophils # (Auto) 0.0, Sodium Level 136, Potassium Level 4.7, Chloride Level 100, Carbon Dioxide Level 27, Anion Gap 9, Blood Urea Nitrogen 6L, Creatinine 0.59L, Estimat Glomerular Filtration Rate > 60, BUN/ Creatinine Ratio 10, Glucose Level 112H, Calcium Level 8.1L, Total Bilirubin 0.2 , Aspartate Amino Transf (AST/SGOT) 18, Alanine Aminotransferase (ALT/SGPT) 8, Alkaline Phosphatase 83, Total Protein 5.8L, Albumin 2.8L Microbiology 05/20/17 Blood Culture - Preliminary, Resulted No growth 05/21/17 Gram Stain - Final, Resulted 05/21/17 Bronchial Culture - Preliminary, Resulted No growth 05/21/17 Fungal Culture, Resulted Pending Assessment/Plan Assessment/Plan Assess & Plan/Chief Complaint pneumonia bilateral. Spiculated mass in the lung. COPD with acute exacerbation. Dehydration Patient improving plan to discharge tomorrow. Clinical Quality Measures DVT/VTE Risk/Contraindication: Risk Factor Score Per Nursin RFS Level Per Nursing on Admit: 3=High Contraindications-Pharm: Other *list below* AMANDEEP GENAO DO May 22, 2017 08:15
[2017-05-22] MEDS: PIPERACILLIN SODIUM/TAZOBACTAM 4.5 GM in NS (IVPB) 100 ML IV SCH ×3 (08:24→23:19)
[2017-05-22] MEDS: amLODIPine 5 MG (NORVASC) TAB PO SCH (09:11)
[2017-05-22] MEDS: PANTOPRAZOLE 40 MG (PROTONIX) TAB PO SCH (09:11)
[2017-05-22] MEDS: GABAPENTIN 600 MG (NEURONTIN) TAB PO SCH ×2 (09:11→15:50)
[2017-05-22] MEDS: PHENYTOIN 100 MG (DILANTIN) CAP PO SCH ×3 (09:11→23:09)
[2017-05-22] MEDS: ENOXAPARIN 40 MG/0.4 ML (LOVENOX) SYR SC SCH (09:12)
[2017-05-22 16:00] VITALS: BP 116/63
[2017-05-22 17:08] LABS: BILIRUBIN,URINE NEGATIVE (NEGATIVE); CLARITY,URINE CLEAR; COLOR,URINE YELLOW; GLUCOSE, URINE (UA) NEGATIVE (NEGATIVE); KETONES,URINE NEGATIVE (NEGATIVE); LEUKOCYTE ESTERASE ,URINE NEGATIVE (NEGATIVE); NITRITE,URINE NEGATIVE (NEGATIVE); PH,URINE 7 (5-9); PROTEIN,URINE NEGATIVE (NEGATIVE); UROBILINOGEN,URINE NORMAL (NORMAL)
[2017-05-22 17:16] LABS: BACTERIA,URINE NEGATIVE /HPF; SQUAMOUS EPITHELIAL CELL,UR 0-2 /HPF
[2017-05-22] MEDS: GABAPENTIN 300 MG (NEURONTIN) CAP PO SCH (23:09)
[2017-05-23 00:03] VITALS: BP 115/66
[2017-05-23] MEDS: lamoTRIgine 25 MG (LaMICtal) TAB PO SCH (03:01)
[2017-05-23] MEDS: lisINopril 20 MG (PRINIVIL) TABLET PO SCH (03:01)
[2017-05-23] MEDS: ATORVASTATIN 10 MG (LIPITOR) TABLET PO SCH (03:01)
[2017-05-23] MEDS: carBAMazepine 200 MG (TEGretol) TAB PO SCH ×2 (03:02→08:41)
[2017-05-23] MEDS: RT-ALBUTEROL/IPRATROPIUM 3 ML (DUONEB) VIAL IH SCH ×3 (03:02→09:55)
[2017-05-23] MEDS: methylPREDNISolone 40 MG/ML (Solu-MEDROL) VIAL IV SCH (05:44)
--- NOTE | 2017-05-23 06:05 | Pulmonary Progress Note ---
Subjective Time Seen by Provider: 06:34 Subjective/Events-last exam Pt is feeling more SOB today. Exam Exam Vital Signs Date Time Temp Pulse Resp B/P (MAP) Pulse Ox O2 Delivery O2 Flow Rate FiO2 05/23/17 03:02 93 Nasal Cannula 4.00 05/23/17 00:03 97.5 68 18 115/66 (82) 94 Nasal Cannula 4.00 05/22/17 22:42 93 Nasal Cannula 4.00 05/22/17 19:45 Nasal Cannula 4.00 05/22/17 18:34 93 Nasal Cannula 4.00 05/22/17 16:00 97.1 60 18 116/63 (80) 97 Nasal Cannula 3.00 05/22/17 14:35 93 Room Air 4.00 05/22/17 10:30 88 Room Air 3.00 05/22/17 08:00 97.5 67 20 149/72 (97) 90 Nasal Cannula 3.00 05/22/17 08:00 88 Nasal Cannula 3.00 05/22/17 07:00 91 Nasal Cannula 3.00 I & O 05/23/17 07:00 Intake Total 2170 ml Output Total 1675 ml Balance 495 ml General Appearance: No Apparent Distress, Thin HEENT: Normal ENT Inspection Neck: Normal Inspection Respiratory: No Accessory Muscle Use, No Respiratory Distress, Decreased Breath Sounds Cardiovascular: Regular Rate, Rhythm Capillary Refill: Greater Than 3 Seconds Gastrointestinal: non tender, soft Extremity: Normal Capillary Refill, Normal Inspection Neurologic/Psychiatric: Alert, Oriented x3 Skin: Normal Color, Warm/Dry Lymphatic: No Adenopathy Results Lab Laboratory Tests 05/22/17 05:50 Assessment/Plan Assessment/Plan Acute on chronic respiratory failure Severe COPD oxygen dependent with AE -SVNs, Oxygen -BiPAP PRN -SOlumedrol - change to prednisone Dyspnea -Hep lock IVF -Lasix 40mg IV X 1 -Check BNP New LLL infiltrate r/o PNA -mornitor -Zosyn Left lung spiculated mass -S/P bronch with EBUS -Pt will need outpatient PET scan Hyponatremia -monitor Hx of seizures I will see pt in office next . RN to make appt. 232 Clinical Quality Measures DVT/VTE Risk/Contraindication: Risk Factor Score Per Nursin RFS Level Per Nursing on Admit: 3=High Contraindications-Pharm: Other *list below* RANI PACHECO DO May 23, 2017 06:05
[2017-05-23 06:09] LABS: BASOPHILS % (AUTO) 0 % (0-10); EOSINOPHILS % (AUTO) 0 % (0-10); HEMATOCRIT 28 % (40-54); HEMOGLOBIN 9.1 G/DL (13.3-17.7); LYMPHOCYTES # (AUTO) 0.7 X 10^3 (1.0-4.0); LYMPHOCYTES % (AUTO) 14 % (12-44); MEAN CORPUSCULAR HEMOGLOBIN 30 PG (25-34); MEAN CORPUSCULAR HGB CONC 32 G/DL (32-36); MEAN CORPUSCULAR VOLUME 94 FL (80-99); MEAN PLATELET VOLUME 8.9 FL (7.4-10.4); MONOCYTES # (AUTO) 0.5 X 10^3 (0.0-1.0); MONOCYTES % (AUTO) 10 % (0-12); NEUTROPHILS # (AUTO) 3.8 X 10^3 (1.8-7.8); NEUTROPHILS % (AUTO) 77 % (42-75); PLATELET COUNT 377 10^3/uL (130-400); RED BLOOD COUNT 3.01 10^6/uL (4.35-5.85); RED CELL DISTRIBUTION WIDTH 15.4 % (10.0-14.5)
[2017-05-23 06:31] LABS: BUN/CREATININE RATIO 10; CALCIUM 8.2 MG/DL (8.5-10.1); CARBON DIOXIDE 28 MMOL/L (21-32); CHLORIDE 103 MMOL/L (98-107); CREATININE SERUM 0.61 MG/DL (0.60-1.30); GFR ESTIMATED > 60; GLUCOSE 150 MG/DL (70-105); POTASSIUM 4.4 MMOL/L (3.6-5.0); SODIUM 138 MMOL/L (135-145)
[2017-05-23] MEDS ORDERED: FUROSEMIDE 40 MG/4 ML INJ (LASIX) IVP ONE (06:45)
[2017-05-23 08:00] VITALS: BP 122/73
--- NOTE | 2017-05-23 08:07 | Progress Note (SOAP) ---
Subjective Time Seen by Provider: 08:05 Subjective/Events-last exam patient is feeling better today. patient is breathing better today Waiting for chest x-ray report. Patient may be discharged today. Bronchial washings shows staph aureus sensitive to Levaquin Objective Exam Vital Signs Date Time Temp Pulse Resp B/P (MAP) Pulse Ox O2 Delivery O2 Flow Rate FiO2 05/23/17 06:56 91 Nasal Cannula 5.00 05/23/17 03:02 93 Nasal Cannula 4.00 05/23/17 00:03 97.5 68 18 115/66 (82) 94 Nasal Cannula 4.00 05/22/17 22:42 93 Nasal Cannula 4.00 05/22/17 19:45 Nasal Cannula 4.00 05/22/17 18:34 93 Nasal Cannula 4.00 05/22/17 16:00 97.1 60 18 116/63 (80) 97 Nasal Cannula 3.00 05/22/17 14:35 93 Room Air 4.00 05/22/17 10:30 88 Room Air 3.00 I & O 05/23/17 07:00 Intake Total 2410 ml Output Total 2125 ml Balance 285 ml Capillary Refill : Greater Than 3 Seconds General Appearance: No Apparent Distress, Thin HEENT: Normal ENT Inspection Neck: Full Range of Motion, Normal Inspection Respiratory: No Accessory Muscle Use, No Respiratory Distress, Decreased Breath Sounds Cardiovascular: Regular Rate, Rhythm, No Murmur Results Lab Laboratory Tests 05/23/17 05:35 Laboratory Tests 05/22/17 17:00: Urine Color YELLOW, Urine Clarity CLEAR, Urine pH 7, Urine Specific [place] 1.005L, Urine Protein NEGATIVE, Urine Glucose (UA) NEGATIVE, Urine Ketones NEGATIVE, Urine Nitrite NEGATIVE, Urine Bilirubin NEGATIVE, Urine Urobilinogen NORMAL, Urine Leukocyte Esterase NEGATIVE, Urine RBC (Auto) NEGATIVE, Urine RBC NONE, Urine WBC NONE, Urine Squamous Epithelial Cells 0-2, Urine Crystals NONE, Urine Bacteria NEGATIVE, Urine Casts NONE, Urine Mucus NEGATIVE, Urine Culture Indicated NO 05/23/17 05:35: White Blood Count 5.0, Red Blood Count 3.01L, Hemoglobin 9.1L, Hematocrit 28L, Mean Corpuscular Volume 94, Mean Corpuscular Hemoglobin 30, Mean Corpuscular Hemoglobin Concent 32, Red Cell Distribution Width 15.4H, Platelet Count 377, Mean Platelet Volume 8.9, Neutrophils (%) (Auto) 77H, Lymphocytes (%) (Auto) 14 , Monocytes (%) (Auto) 10, Eosinophils (%) (Auto) 0, Basophils (%) (Auto) 0, Neutrophils # (Auto) 3.8, Lymphocytes # (Auto) 0.7L, Monocytes # (Auto) 0.5, Eosinophils # (Auto) 0.0, Basophils # (Auto) 0.0, Sodium Level 138, Potassium Level 4.4, Chloride Level 103, Carbon Dioxide Level 28, Anion Gap 7, Blood Urea Nitrogen 6L, Creatinine 0.61, Estimat Glomerular Filtration Rate > 60, BUN/ Creatinine Ratio 10, Glucose Level 150H, Calcium Level 8.2L, B-Type Natriuretic Peptide 233.9H Microbiology 05/20/17 Blood Culture - Preliminary, Resulted No growth 05/21/17 Gram Stain - Final, Resulted 05/21/17 Bronchial Culture - Preliminary, Resulted No growth 05/21/17 Fungal Culture, Resulted Pending Assessment/Plan Assessment/Plan Assess & Plan/Chief Complaint pneumonia bilateral. Spiculated mass in the lung. COPD with acute exacerbation. Dehydration Patient improving plan to discharge tomorrow.. . 05/23/17. Bilateral pneumonia. Clinically patient improving. Spiculated mass in the lung. COPD with acute exacerbation. Waiting on chest x-ray report Clinical Quality Measures DVT/VTE Risk/Contraindication: Risk Factor Score Per Nursin RFS Level Per Nursing on Admit: 3=High Contraindications-Pharm: Other *list below* AMANDEEP GENAO DO May 23, 2017 08:07
--- NOTE | 2017-05-23 08:16 | Diagnostic Imaging Report ---
INDICATION: Shortness of breath. PA and lateral chest obtained at 7:36 a.m. and compared with 05/21/2017. FINDINGS: Heart is normal in size. Mediastinal silhouette is unremarkable. There is COPD change. There appears to be partial improvement in infiltrates in both lung bases compared to the prior study without complete resolution. There is no pneumothorax or significant sized effusion. IMPRESSION: COPD changes. Partial improvement in bilateral basilar infiltrates compared to the prior study without complete resolution. No pneumothorax or gross pleural fluid. Dictated by: Dictated on workstation # [id number]
[2017-05-23] MEDS: ENOXAPARIN 40 MG/0.4 ML (LOVENOX) SYR SC SCH (08:39)
[2017-05-23] MEDS: PANTOPRAZOLE 40 MG (PROTONIX) TAB PO SCH (08:40)
[2017-05-23] MEDS: amLODIPine 5 MG (NORVASC) TAB PO SCH (08:40)
[2017-05-23] MEDS: PHENYTOIN 100 MG (DILANTIN) CAP PO SCH (08:40)
[2017-05-23] MEDS: CEPHALEXIN 250 MG (KEFLEX) CAP PO SCH ×2 (08:41→13:08)
[2017-05-23] MEDS: GABAPENTIN 600 MG (NEURONTIN) TAB PO SCH (08:41)
[2017-05-23] MEDS ORDERED: predniSONE 10 MG TAB PO SCH (09:00)
[2017-05-23] MEDS ORDERED: CEPH250C PO (11:03)
[2017-05-23 14:46] VITALS: BP 122/73
--- NOTE | 2017-05-26 17:27 | Discharge Summary ---
Diagnosis/Chief Complaint Date of Admission May 20, 2017 at 16:28 Date of Discharge May 23, 2017 at 14:48 Discharge Date: May 23, 2017 Discharge Time: 17:20 Admission Diagnosis Admission Diagnosis Pneumonia. Spiculated lesion of lung. COPD. History of seizures. Recent weight loss. Weakness. Malaise. Probable cancer of lung. Discharge Diagnosis Pneumonia left lower lobe. COPD with acute exacerbation Acute and.Chronic respiratory failure. Staph aureus. Spiculated nodule left upper lobe. Evaluate for cancer. Seizure. Recent weight loss of 17 pounds Reason Hospital Visit Patient came to the office yesterday with his significant other. Patient lost 17 pounds within the last month. Patient now unable to walk and having difficulty in getting around which is new. Patient not eating. He has history of COPD with smoking. Patient sent out to the emergency room. CAT scan of the chest shows spiculated lesion and pneumonia. Patient was sent [facility] less than a month ago for nasal bleed. Patient has history of seizures. Patient will o'clock he just came out of a [place] Discharge Summary Procedures Bronchoscopy COMPLICATIONS: [ None ] Consultations Pulmonology. Oncology Discharge Physical Examination Allergies: Coded Allergies: aspirin (Unverified Allergy, Mild, DOES NOT WORK WELL W/ OTHER MEDS, ) ibuprofen (Unverified Allergy, Mild, 08/10/15) Vitals & I&Os Vital Signs Date Time Temp Pulse Resp B/P (MAP) Pulse Ox O2 Delivery O2 Flow Rate FiO2 05/23/17 14:46 73 20 122/73 94 Nasal Cannula 4.00 05/23/17 08:00 97.9 Hospital Course Labs (last 24 hrs) Laboratory Tests 05/20/17 14:55: White Blood Count 8.8, Red Blood Count 3.77L, Hemoglobin 11.5L, Hematocrit 35L, Mean Corpuscular Volume 92, Mean Corpuscular Hemoglobin 31, Mean Corpuscular Hemoglobin Concent 33, Red Cell Distribution Width 15.2H, Platelet Count 357, Mean Platelet Volume 8.7, Neutrophils (%) (Auto) 82H, Lymphocytes (%) (Auto) 9L , Monocytes (%) (Auto) 9, Eosinophils (%) (Auto) 0, Basophils (%) (Auto) 0, Neutrophils # (Auto) 7.2, Lymphocytes # (Auto) 0.8L, Monocytes # (Auto) 0.8, Eosinophils # (Auto) 0.0, Basophils # (Auto) 0.0, Prothrombin Time 13.5, INR Comment 1.0, Activated Partial Thromboplast Time 35, Sodium Level 133L, Potassium Level 4.1, Chloride Level 94L, Carbon Dioxide Level 29, Anion Gap 10, Blood Urea Nitrogen 6L, Creatinine 0.81, Estimat Glomerular Filtration Rate > 60 , BUN/Creatinine Ratio 7, Glucose Level 109H, Calcium Level 8.7, Total Bilirubin 0.3, Aspartate Amino Transf (AST/SGOT) 18, Alanine Aminotransferase ( ALT/SGPT) 11, Alkaline Phosphatase 99, B-Type Natriuretic Peptide 71.1, Total Protein 7.4, Albumin 3.6 05/20/17 16:28: Lab Scanned Report Referred Lab Report 05/20/17 16:35: Lactic Acid Level 1.37 05/21/17 05:25: White Blood Count 6.8, Red Blood Count 2.99L, Hemoglobin 9.0#L, Hematocrit 27L, Mean Corpuscular Volume 92, Mean Corpuscular Hemoglobin 30, Mean Corpuscular Hemoglobin Concent 33, Red Cell Distribution Width 15.3H, Platelet Count 309, Mean Platelet Volume 8.6, Neutrophils (%) (Auto) 78H, Lymphocytes (%) (Auto) 11L , Monocytes (%) (Auto) 11, Eosinophils (%) (Auto) 0, Basophils (%) (Auto) 0, Neutrophils # (Auto) 5.3, Lymphocytes # (Auto) 0.7L, Monocytes # (Auto) 0.8, Eosinophils # (Auto) 0.0, Basophils # (Auto) 0.0, Sodium Level 133L, Potassium Level 4.1, Chloride Level 98, Carbon Dioxide Level 26, Anion Gap 9, Blood Urea Nitrogen 6L, Creatinine 0.57L, Estimat Glomerular Filtration Rate > 60, BUN/ Creatinine Ratio 11, Glucose Level 102, Calcium Level 7.6L, Total Bilirubin 0.3 , Aspartate Amino Transf (AST/SGOT) 14, Alanine Aminotransferase (ALT/SGPT) 8, Alkaline Phosphatase 86, Total Protein 5.7L, Albumin 2.8L, Phosphorus Level 2.1L , Magnesium Level 2.1, Phenytoin (Dilantin) Level 2.5L, Carbamazepine (Tegretol ) Level 8.0 05/22/17 05:50: White Blood Count 4.0L, Red Blood Count 2.98L, Hemoglobin 8.9L, Hematocrit 28L, Mean Corpuscular Volume 93, Mean Corpuscular Hemoglobin 30, Mean Corpuscular Hemoglobin Concent 32, Red Cell Distribution Width 15.0H, Platelet Count 320, Mean Platelet Volume 8.8, Neutrophils (%) (Auto) 70, Lymphocytes (%) (Auto) 17, Monocytes (%) (Auto) 13H, Eosinophils (%) (Auto) 0, Basophils (%) (Auto) 0, Neutrophils # (Auto) 2.8, Lymphocytes # (Auto) 0.7L, Monocytes # (Auto) 0.5, Eosinophils # (Auto) 0.0, Basophils # (Auto) 0.0, Sodium Level 136, Potassium Level 4.7, Chloride Level 100, Carbon Dioxide Level 27, Anion Gap 9, Blood Urea Nitrogen 6L, Creatinine 0.59L, Estimat Glomerular Filtration Rate > 60, BUN/ Creatinine Ratio 10, Glucose Level 112H, Calcium Level 8.1L, Total Bilirubin 0.2 , Aspartate Amino Transf (AST/SGOT) 18, Alanine Aminotransferase (ALT/SGPT) 8, Alkaline Phosphatase 83, Total Protein 5.8L, Albumin 2.8L 05/22/17 17:00: Urine Color YELLOW, Urine Clarity CLEAR, Urine pH 7, Urine Specific [place] 1.005L, Urine Protein NEGATIVE, Urine Glucose (UA) NEGATIVE, Urine Ketones NEGATIVE, Urine Nitrite NEGATIVE, Urine Bilirubin NEGATIVE, Urine Urobilinogen NORMAL, Urine Leukocyte Esterase NEGATIVE, Urine RBC (Auto) NEGATIVE, Urine RBC NONE, Urine WBC NONE, Urine Squamous Epithelial Cells 0-2, Urine Crystals NONE, Urine Bacteria NEGATIVE, Urine Casts NONE, Urine Mucus NEGATIVE, Urine Culture Indicated NO 05/23/17 05:35: White Blood Count 5.0, Red Blood Count 3.01L, Hemoglobin 9.1L, Hematocrit 28L, Mean Corpuscular Volume 94, Mean Corpuscular Hemoglobin 30, Mean Corpuscular Hemoglobin Concent 32, Red Cell Distribution Width 15.4H, Platelet Count 377, Mean Platelet Volume 8.9, Neutrophils (%) (Auto) 77H, Lymphocytes (%) (Auto) 14 , Monocytes (%) (Auto) 10, Eosinophils (%) (Auto) 0, Basophils (%) (Auto) 0, Neutrophils # (Auto) 3.8, Lymphocytes # (Auto) 0.7L, Monocytes # (Auto) 0.5, Eosinophils # (Auto) 0.0, Basophils # (Auto) 0.0, Sodium Level 138, Potassium Level 4.4, Chloride Level 103, Carbon Dioxide Level 28, Anion Gap 7, Blood Urea Nitrogen 6L, Creatinine 0.61, Estimat Glomerular Filtration Rate > 60, BUN/ Creatinine Ratio 10, Glucose Level 150H, Calcium Level 8.2L, B-Type Natriuretic Peptide 233.9H Microbiology 05/20/17 Blood Culture - Final, Complete No growth 05/21/17 Gram Stain - Final, Resulted 05/21/17 Bronchial Culture - Final, Resulted No growth 05/21/17 Fungal Culture - Preliminary, Resulted No growth Laboratory Tests 05/20/17 14:55 05/21/17 05:25 05/22/17 05:50 05/23/17 05:35 Pending Labs Microbiology Date/Time Source Procedure Growth Status 05/20/17 16:35 Peripheral Left Wrist Blood Culture - Final No growth Complete 05/20/17 16:15 Peripheral Right Wrist Blood Culture - Final No growth Complete 05/21/17 08:00 Bronch Brushing Left Lower Lobe Gram Stain - Final Resulted 05/21/17 08:00 Bronch Brushing Left Lower Lobe Bronchial Culture - Final No growth Resulted 05/21/17 08:00 Bronch Brushing Left Lower Lobe Fungal Culture - Preliminary No growth Resulted 05/21/17 08:00 Bronchial Lavage (Bal) Left Lower Lobe Mycobacterial Culture - Preliminary Resulted 05/21/17 08:00 Bronchial Lavage (Bal) Left Lower Lobe Gram Stain - Final Resulted 05/21/17 08:00 Bronchial Culture - Final Staphylococcus aureus Resulted 05/21/17 08:00 Bronchial Lavage (Bal) Left Lower Lobe Fungal Culture - Preliminary No growth Resulted Laboratory Tests 05/20/17 14:55: White Blood Count 8.8, Red Blood Count 3.77, Hemoglobin 11.5, Hematocrit 35, Mean Corpuscular Volume 92, Mean Corpuscular Hemoglobin 31, Mean Corpuscular Hemoglobin Concent 33, Red Cell Distribution Width 15.2, Platelet Count 357, Mean Platelet Volume 8.7, Neutrophils (%) (Auto) 82, Lymphocytes (%) (Auto) 9, Monocytes (%) (Auto) 9, Eosinophils (%) (Auto) 0, Basophils (%) (Auto) 0, Neutrophils # (Auto) 7.2, Lymphocytes # (Auto) 0.8, Monocytes # (Auto) 0.8, Eosinophils # (Auto) 0.0, Basophils # (Auto) 0.0, Prothrombin Time 13.5, INR Comment 1.0, Activated Partial Thromboplast Time 35, Sodium Level 133, Potassium Level 4.1, Chloride Level 94, Carbon Dioxide Level 29, Anion Gap 10, Blood Urea Nitrogen 6, Creatinine 0.81, Estimat Glomerular Filtration Rate > 60 , BUN/Creatinine Ratio 7, Glucose Level 109, Calcium Level 8.7, Total Bilirubin 0.3, Aspartate Amino Transf (AST/SGOT) 18, Alanine Aminotransferase (ALT/SGPT) 11, Alkaline Phosphatase 99, B-Type Natriuretic Peptide 71.1, Total Protein 7.4 , Albumin 3.6 05/20/17 16:28: Lab Scanned Report Referred Lab Report 05/20/17 16:35: Lactic Acid Level 1.37 05/21/17 05:25: White Blood Count 6.8, Red Blood Count 2.99, Hemoglobin 9.0, Hematocrit 27, Mean Corpuscular Volume 92, Mean Corpuscular Hemoglobin 30, Mean Corpuscular Hemoglobin Concent 33, Red Cell Distribution Width 15.3, Platelet Count 309, Mean Platelet Volume 8.6, Neutrophils (%) (Auto) 78, Lymphocytes (%) (Auto) 11, Monocytes (%) (Auto) 11, Eosinophils (%) (Auto) 0, Basophils (%) (Auto) 0, Neutrophils # (Auto) 5.3, Lymphocytes # (Auto) 0.7, Monocytes # (Auto) 0.8, Eosinophils # (Auto) 0.0, Basophils # (Auto) 0.0, Sodium Level 133, Potassium Level 4.1, Chloride Level 98, Carbon Dioxide Level 26, Anion Gap 9, Blood Urea Nitrogen 6, Creatinine 0.57, Estimat Glomerular Filtration Rate > 60, BUN/ Creatinine Ratio 11, Glucose Level 102, Calcium Level 7.6, Total Bilirubin 0.3, Aspartate Amino Transf (AST/SGOT) 14, Alanine Aminotransferase (ALT/SGPT) 8, Alkaline Phosphatase 86, Total Protein 5.7, Albumin 2.8, Phosphorus Level 2.1, Magnesium Level 2.1, Phenytoin (Dilantin) Level 2.5, Carbamazepine (Tegretol) Level 8.0 05/22/17 05:50: White Blood Count 4.0, Red Blood Count 2.98, Hemoglobin 8.9, Hematocrit 28, Mean Corpuscular Volume 93, Mean Corpuscular Hemoglobin 30, Mean Corpuscular Hemoglobin Concent 32, Red Cell Distribution Width 15.0, Platelet Count 320, Mean Platelet Volume 8.8, Neutrophils (%) (Auto) 70, Lymphocytes (%) (Auto) 17, Monocytes (%) (Auto) 13, Eosinophils (%) (Auto) 0, Basophils (%) (Auto) 0, Neutrophils # (Auto) 2.8, Lymphocytes # (Auto) 0.7, Monocytes # (Auto) 0.5, Eosinophils # (Auto) 0.0, Basophils # (Auto) 0.0, Sodium Level 136, Potassium Level 4.7, Chloride Level 100, Carbon Dioxide Level 27, Anion Gap 9, Blood Urea Nitrogen 6, Creatinine 0.59, Estimat Glomerular Filtration Rate > 60, BUN/ Creatinine Ratio 10, Glucose Level 112, Calcium Level 8.1, Total Bilirubin 0.2, Aspartate Amino Transf (AST/SGOT) 18, Alanine Aminotransferase (ALT/SGPT) 8, Alkaline Phosphatase 83, Total Protein 5.8, Albumin 2.8 05/22/17 17:00: Urine Color YELLOW, Urine Clarity CLEAR, Urine pH 7, Urine Specific Henderson 1.005, Urine Protein NEGATIVE, Urine Glucose (UA) NEGATIVE, Urine Ketones NEGATIVE, Urine Nitrite NEGATIVE, Urine Bilirubin NEGATIVE, Urine Urobilinogen NORMAL, Urine Leukocyte Esterase NEGATIVE, Urine RBC (Auto) NEGATIVE, Urine RBC NONE, Urine WBC NONE, Urine Squamous Epithelial Cells 0-2, Urine Crystals NONE, Urine Bacteria NEGATIVE, Urine Casts NONE, Urine Mucus NEGATIVE, Urine Culture Indicated NO 05/23/17 05:35: White Blood Count 5.0, Red Blood Count 3.01, Hemoglobin 9.1, Hematocrit 28, Mean Corpuscular Volume 94, Mean Corpuscular Hemoglobin 30, Mean Corpuscular Hemoglobin Concent 32, Red Cell Distribution Width 15.4, Platelet Count 377, Mean Platelet Volume 8.9, Neutrophils (%) (Auto) 77, Lymphocytes (%) (Auto) 14, Monocytes (%) (Auto) 10, Eosinophils (%) (Auto) 0, Basophils (%) (Auto) 0, Neutrophils # (Auto) 3.8, Lymphocytes # (Auto) 0.7, Monocytes # (Auto) 0.5, Eosinophils # (Auto) 0.0, Basophils # (Auto) 0.0, Sodium Level 138, Potassium Level 4.4, Chloride Level 103, Carbon Dioxide Level 28, Anion Gap 7, Blood Urea Nitrogen 6, Creatinine 0.61, Estimat Glomerular Filtration Rate > 60, BUN/ Creatinine Ratio 10, Glucose Level 150, Calcium Level 8.2, B-Type Natriuretic Peptide 233.9 Discharge Home Medications: Active Scripts Active Cephalexin 250 Mg Capsule 500 Mg PO TID 5 Days Reported Carbamazepine 200 Mg Tablet 400 Mg PO 1500 TAKES 2 (200 MG) TABLETS Symbicort 160-4.5 Mcg Inhaler (Budesonide/Formoterol Fumarate) 10.2 Gm Hfa.aer.ad 2 Puff IH BID Amlodipine Besylate 5 Mg Tablet 5 Mg PO DAILY Advair 250-50 Diskus (Fluticasone/Salmeterol) 1 Each Blst.w.dev 1 Puff IH BID Meloxicam 15 Mg Tablet 15 Mg PO 1500 Lamotrigine 25 Mg Tablet 25 Mg PO 1500,0300 Atorvastatin Calcium 10 Mg Tablet 10 Mg PO 0300 Lisinopril 20 Mg Tablet 20 Mg PO 0300 Pantoprazole Sodium 40 Mg Tablet.dr 40 Mg PO DAILY Proair Hfa (Albuterol Sulfate) 1 Puff Puff 2 Puff IH Q6H PRN 1 PUFF = 90 MCG Spiriva (Tiotropium [place]) 1 Inh Aerp 1 Cap IH HS Albuterol Sulfate 2.5 Mg/3 Ml Vial.neb 2.5 Mg NEB 5XD PRN Tegretol (Carbamazepine) 200 Mg Tablet 200 Mg PO 0800,2300,0300 Phenytoin Sodium Extended 100 Mg Capsule 100 Mg PO 0800,2300 Phenytoin Sodium Extended 100 Mg Capsule 200 Mg PO 1500 TAKES 2 (100 MG) CAPSULES Gabapentin 600 Mg Tablet 600 Mg PO 0800,1500 Gabapentin 300 Mg Capsule 300 Mg PO 2300 Lamotrigine 100 Mg Tablet 100 Mg PO 1500,2300 Instructions to patient/family Please see electronic discharge instructions given to patient. Clinical Quality Measures DVT/VTE Risk/Contraindication: Risk Factor Score Per Nursin RFS Level Per Nursing on Admit: 3=High Contraindications-Pharm: Other *list below* GELLENDER,AMANDEEP A DO May 26, 2017 17:27
== END 2017-05-23 14:48 | disposition home or self-care (01) | DRG 166 ==
LOC: EDUNIT# 14:46 → ER 14:48 → 4TH 16:28
PROVIDERS: ADMIT Family Medicine; ATTEND Family Medicine
PROC: 0BDJ4ZX Extraction of Left Lower Lung Lobe, Percutaneous Endoscopic Approach, Diagnostic (ICD-10-PCS; principal; 2017-05-21 07:35)
PROC: 07B74ZX Excision of Thorax Lymphatic, Percutaneous Endoscopic Approach, Diagnostic (ICD-10-PCS; 2017-05-21 07:35)
DX: J96.20 Acute and chronic respiratory failure, unspecified whether with hypoxia or hypercapnia (principal); J44.1 Chronic obstructive pulmonary disease with (acute) exacerbation; J15.211 Pneumonia due to Methicillin susceptible Staphylococcus aureus; J44.0 Chronic obstructive pulmonary disease with (acute) lower respiratory infection; Z99.81 Dependence on supplemental oxygen; R91.8 Other nonspecific abnormal finding of lung field; E87.1 Hypo-osmolality and hyponatremia; E86.0 Dehydration; G40.909 Epilepsy, unspecified, not intractable, without status epilepticus; G14 Postpolio syndrome; Z87.891 Personal history of nicotine dependence
CPT/HCPCS: 36415; 71045; 71046; 71260; 80048; 80053; 80156; 80185; 81000; 83605; 83735; 83880; 84100; 85025; 85610; 85730; 87040; 87070; 87077; 87101; 87116; 87186; 87205; 94640; 94664; 94760; 96361; 96374

== ENCOUNTER → 2017-06-17 | Outpatient (CLI) | payer MEDICAID ==
[~2017-06-17] MED LIST changes: +AMLO5TAB2 PO; +BUDE10.2 IH; +CEPH250C PO; -LIDOCAINE 4% INJ (XYLOCAINE) 5ML AMP INJ ONE; -LIDOCAINE PF 1% 2 ML AMP IJ ONE
--- NOTE | 2017-06-17 16:00 | Diagnostic Imaging Report ---
INDICATION: Left upper lobe mass noted on prior CT. The study is performed for further evaluation. TECHNIQUE: Serum blood glucose level at time of injection is 118 mg/dL. The patient was administered 13.2 mCi of F-18 FDG intravenously in the right antecubital location and PET imaging from the top of the skull through the mid thighs was performed. In addition, noncontrast CT imaging was performed for attenuation correction and anatomic correlation. COMPARISON: Correlation is made with recent chest CT from 05/20/2017. FINDINGS: There is symmetric uptake of activity throughout the brain. Soft tissues of the neck are unremarkable. The spiculated mass identified in the left upper lobe on recent CT does demonstrate hypermetabolism. The SUV max is approximately 6. No other pulmonary parenchymal hypermetabolism is seen. The mediastinum and ryan are unremarkable. Normal hypermetabolism within the left ventricular myocardium is noted. Physiologic uptake within the liver and spleen is seen. There is physiologic activity within the urinary tracts as well as the GI tract. Within the pelvis, there is physiologic activity within the bladder. There is a small focus of hypermetabolism involving the proximal left femur, near the femoral head neck junction superiorly. SUV max is approximately 5.5. There is a lucency at this location on the noncontrast CT. No periosteal reaction or cortical destruction is identified at this location. No other abnormalities are detected. IMPRESSION: 1. Hypermetabolic left upper lobe spiculated mass, concerning for neoplasm. No mediastinal or hilar hypermetabolism is identified. 2. Small focus of hypermetabolism in the proximal left femur. This is indeterminate. A small metastatic lesion cannot be entirely excluded. MRI of the left hip would be useful for further evaluation. Dictated by: Dictated on workstation # [id number]
== END ==
LOC: RAD 09:08
PROVIDERS: ATTEND Internal Medicine Critical Care Medicine
DX: R22.0 Localized swelling, mass and lump, head (principal); J96.21 Acute and chronic respiratory failure with hypoxia; F17.200 Nicotine dependence, unspecified, uncomplicated; Z99.81 Dependence on supplemental oxygen

== ENCOUNTER → 2017-07-02 | Outpatient (CLI) | payer MEDICAID ==
[~2017-07-02] MED LIST changes: +GADOBUTROL 7.5 MMOL/7.5 ML (GADAVIST) VIAL IV ONE
--- NOTE | 2017-07-02 10:19 | Diagnostic Imaging Report ---
PROCEDURE: MRI left joint lower extremity with and without contrast. TECHNIQUE: Multiplanar, multisequence pre and post contrast-enhanced MRI of the left lower extremity was accomplished. INDICATION: Lung mass, tobacco use There are no previous MRI examinations available for comparison. The PET/CT exam performed on 06/17/2017 noted a hypermetabolic mass in the left upper lobe. This was felt to be concerning for neoplasm. The PET/CT exam also revealed a small focus of hypermetabolism in the proximal left femur. On this exam there is a fairly well-circumscribed 1.8 x 2.2 CM area of increased signal near the lateral junction of the left femoral head and left femoral neck on the T2 fat-saturated coronal series. This would correspond to the finding of the PET/CT exam I do feel that this area of abnormal signal should be considered neoplastic until proven otherwise. In reviewing the previous CT abdomen/pelvis exam of 02/28/2016 there was no sign of a bony lesion in this area. There are few other much smaller areas of slightly altered signal within the left frontal neck. These are suspicious but not conclusive for neoplastic disease. There is no other abnormal signal arising from the osseous structures to suggest metastatic disease. There is at least moderate degenerative disease of both hip joints. There is no pelvic mass or free fluid collection evident. IMPRESSION: 1. There is an area of abnormal signal along the lateral aspect of the junction of the left femoral head and neck. This would correspond to finding on the PET/CT exam and this area of altered signal should be considered neoplastic until proven otherwise. 2. There are a few other smaller areas of slightly altered signal in the left femoral neck as well. These are suspicious but not conclusive for neoplastic disease. 3. No other bony abnormality is identified. Dictated by: Dictated on workstation # [id number]
== END ==
LOC: RAD 08:26
PROVIDERS: ATTEND Internal Medicine Critical Care Medicine
DX: M25.559 Pain in unspecified hip (principal); J44.9 Chronic obstructive pulmonary disease, unspecified; R91.8 Other nonspecific abnormal finding of lung field; Z72.0 Tobacco use
CPT/HCPCS: 73723

== ENCOUNTER → 2017-07-03 | Outpatient (CLI) | payer MEDICAID ==
[~2017-07-03] MED LIST changes: +CATHETER FLUSH 10 ML SYR IV PRN; -GADOBUTROL 7.5 MMOL/7.5 ML (GADAVIST) VIAL IV ONE; +IOHEXOL 350 MG/ML 100 ML (OMNIPAQUE 350) VIAL IV ONE; +NS 250 ML (IVPB) BAG IV ONE
--- NOTE | 2017-07-03 11:16 | Diagnostic Imaging Report ---
PROCEDURE: CT chest with contrast only. TECHNIQUE: Multiple contiguous axial images were obtained through the chest after administration of intravenous contrast. INDICATION: Lung mass. COMPARISON: 05/20/2017. FINDINGS: Note is again made of a spiculated mass in the posterior medial aspect of the left upper lobe. On today's examination, this measures 1.4 cm. There are diffuse emphysematous changes. There is some minimal scarring or atelectasis in the left lung base. There is a 1.8 cm subcarinal lymph node. There are a few mildly enlarged lymph nodes in the AP window, unchanged. The thoracic aorta is normal in caliber without evidence of dissection. The visualized intra-abdominal structures are unremarkable. There are degenerative changes in the spine. The previously seen left basilar pneumonia has resolved. IMPRESSION: Persistent 1.4 cm spiculated mass in the posteromedial aspect of the left upper lobe. This remains compatible with neoplasm. Diffuse emphysematous disease with interval resolution of the previously seen left basilar pneumonia. Dictated by: Dictated on workstation # [id number]
== END ==
LOC: RAD 08:40
PROVIDERS: ATTEND Internal Medicine Hematology & Oncology
DX: J43.9 Emphysema, unspecified (principal); R91.1 Solitary pulmonary nodule
CPT/HCPCS: 71260

== ENCOUNTER 2017-07-24 10:27 | Day surgery (SDC) | payer MEDICAID ==
[~2017-07-24] VITALS: Ht 185.4 cm; Wt 68.0 kg
[~2017-07-24 10:27] MED LIST changes: -CATHETER FLUSH 10 ML SYR IV PRN; -IOHEXOL 350 MG/ML 100 ML (OMNIPAQUE 350) VIAL IV ONE; -NS 250 ML (IVPB) BAG IV ONE
--- OUTSIDE RECORDS SUMMARY | 2017-07-24 10:31 | XMS REPORT | Clinical Summary ---
Author Author [facility] Organization [facility] Address Unknown Phone Unavailable Care Team Providers Care Lowerator Operator Name Role Phone Efra Valentino MD Unavailable Source Comments Some departments are not documenting in the electronic medical record. If you do not see the information that you expected, contact Release of Information in the Health Information Management department at [phone] for further assistance in locating additional records.[facility] Allergies Active Allergy Reactions Severity [...] 16 Active Problems Problem Noted Date Seizures ([facility]) 10/22/2013 Hemiparesis ([facility]) 10/22/2013 Asthma 10/22/2013 COPD (chronic obstructive pulmonary disease) ([facility]) 10/22/2013 Hyperlipidemia 10/22/2013 Weight loss 10/22/2013 Family [...] PHYSICAL (COMPREHENSIVE) 1960 EXAM PERTUSSIS VACCINE 1964 HIV SCREENING 1968 TETANUS VACCINE 1970 COLORECTAL CANCER 07/17/2003 SCREENING SHINGLES VACCINE 2013 INFLUENZA VACCINE 12/29/2017 Results Not on filefrom Last 3 Months
[2017-07-24] MEDS ORDERED: ceFAZolin 2 GM IV Premixed 50 ML IV ONE (10:45)
[2017-07-24 10:48] VITALS: BP 142/79
[2017-07-24] MEDS ORDERED: LIDOCAINE 1% INJ 20 ML 20 ML VIAL ONE (10:55)
[2017-07-24] MEDS ORDERED: BUPIVACAINE 0.5% 30 ML (SENSORCAINE) VIAL ONE (10:56)
[2017-07-24] MEDS ORDERED: 0.9% SODIUM CHLORIDE PF INJ 20 ML VIAL ONE (10:56)
[2017-07-24] MEDS ORDERED: HEParin (CENTRAL IV FLUSH) 500 UNIT/5 ML SYR ONE (10:57)
[2017-07-24] MEDS ORDERED: CATHETER FLUSH 10 ML SYR IV PRN (11:00)
--- NOTE | 2017-07-24 11:00 | Progress Note-Pre Operative ---
Pre-Operative Progress Note H&P Reviewed The H&P was reviewed, patient examined and no changes noted. Date Seen by Provider: Jul 24, 2017 Time Seen by Provider: 10:59 Date H&P Reviewed: Jul 24, 2017 Time H&P Reviewed: 11:00 Pre-Operative Diagnosis: poorly differentiated carcinoma favoring adenocarcioma , lung mass CÉSAR NEGRETE DO Jul 24, 2017 11:00
[2017-07-24] MEDS ORDERED: MIDAZOLAM 2 MG/2 ML (VERSED) VIAL ONE (11:24)
[2017-07-24] MEDS ORDERED: PROPOFOL INJECTION 50 ML IV ONE (11:24)
[2017-07-24] MEDS ORDERED: KETAMINE HCL 100 MG/ML 5 ML VIAL ONE (11:37)
--- NOTE | 2017-07-24 12:15 | Progress Note-Post Operative ---
Post-Operative Progess Note Surgeon (s)/Building Economist (s) Surgeon CÉSAR NEGRETE DO Building Economist: na Pre-Operative Diagnosis poorly differentiated carcinoma favoring adenocarcioma, lung mass Post-Operative Diagnosis same Procedure & Operative Findings Date of Procedure 07/24/17 Procedure Performed/Findings rij u/s guided port placement Anesthesia Type mac c local Estimated Blood Loss Estimated blood loss (mL): minimal Specimens/Packing Specimens Removed na CÉSAR NEGRETE DO Jul 24, 2017 12:15
--- NOTE | 2017-07-24 12:18 | Discharge Inst-Simple/Standard ---
Discharge Inst-Standard Patient Instructions/Follow Up Plan of Care/Instructions/FU: 2 weeks Salma Activity as Tolerated: No Discharge Diet: Regular Diet Other Inst to Patient Follow up Appt: Make appointment for 2 week. Instructions: No lifting greater than 10 pounds. No strenuous activity. May shower in 24 hours, no tub bath or soaking. Use incentive spirometer at home as directed. No Smoking Skin/Wound Care: You have special glue over incisions it will fall off on its own. Symptoms to Report: Appetite Changes, Extremity Discoloration, Numbness/Tingling, Swelling Increased , Bleeding Excessive, Eyesight Changes, Pain Increased, Urine Color Change, Constipation(Persistent), Fever over 101 degree F, Pain/Pressure in chest, Urinating Difficulty, Cough Up/Vomit Blood, Heart Beat Irreg/Pounding, Pain/ Pressure in jaw, Vaginal Bleeding Increase, Cramps in feet or legs, Lightheadedness, Pain/Pressure in shoulder, Diarrhea(Persistent), Memory Changes Suddenly, Questions/Concerns, Weight gain consecutive days, Dizziness/ Fainting, Nausea/Vomiting, Shortness of Breath, Weight gain over 2 pounds If questions or concerns contact your physician Or seek help at emergency department. CÉSAR NEGRETE DO Jul 24, 2017 12:18
--- NOTE | 2017-07-24 12:40 | Diagnostic Imaging Report ---
INDICATION: Port placement. TIME OF EXAM: 12:24 p.m. Correlation is made with prior study from 05/23/2017. Right chest wall port has tip in good position overlying the SVC. No pneumothorax is identified. The heart size is stable. No effusion is seen. IMPRESSION: Right port placement. No pneumothorax is identified. Dictated by: Dictated on workstation # [id number]
[2017-07-24 13:00] VITALS: BP 140/88
--- NOTE | 2017-07-24 13:03 | Anesthesia-General Post-Op ---
MAC Patient Condition Mental Status/LOC: Same as Preop Cardiovascular: Satisfactory Nausea/Vomiting: Absent Respiratory: Satisfactory Pain: Controlled Complications: Absent Post Op Complications Complications None Follow Up Care/Instructions Patient Instructions None needed. Anesthesiology Discharge Order Discharge Order Patient is doing well, no complaints, stable vital signs, no apparent adverse anesthesia problems. No complications reported per nursing. FADUMO SANTIAGO CRNA Jul 24, 2017 13:03
[2017-07-24 13:30] VITALS: BP 134/81
[2017-07-24 14:00] VITALS: BP 136/87
[2017-07-24 14:30] VITALS: BP 136/87
--- NOTE | 2017-07-24 17:41 | Diagnostic Imaging Report ---
Fluoroscopy. INDICATION: Groshong catheter placement. Fluoroscopic assistance was provided for Dr. Marsh during his Groshong catheter procedure insertion. 29.8 seconds of fluoroscopy time was utilized. A single spot film of the thorax was obtained. FINDINGS: There is a Port-A-Cath in place on the right with the tip of the catheter overlying the distal superior vena cava. IMPRESSION: 1. Fluoroscopic assistance was provided for the Port-A-Cath insertion performed by Dr. Marsh. 2. A followup chest exam is pending for further evaluation. Dictated by: Dictated on workstation # [id number]
--- NOTE | 2017-07-24 22:49 | OPERATIVE REPORT ---
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 PROCEDURE: Right internal jugular Ultrasound-guided port placement. SURGEON: César Marsh DO ANESTHESIA: MAC with local. ESTIMATED BLOOD LOSS: Minimal. COMPLICATIONS: None. INDICATIONS: The patient is a 62-year-old male with a femur biopsy demonstrating poorly differentiated carcinoma favoring adenocarcinoma with a spiculated left upper lobe lung mass suspected for primary. He was explained risks and benefits of having port placement for chemotherapy. He understands risks and benefits and wishes to proceed with procedure. Consent was signed on chart. DESCRIPTION OF PROCEDURE: The patient was taken to the operating suite, was prepped and draped in sterile fashion. Surgical pause was performed. Ultrasound was used to identify the right internal jugular vein. Microaccess needle was used to access the right internal jugular vein. Dark nonpulsatile blood was withdrawn. The micro access wire was inserted and the needle was removed. Fluoroscopy assured proper placement. An 11 blade scalpel was used to make a small skin incision at the insertion point. The dilator sheath was advanced over the guidewire and the wire and dilator were removed. The regular guidewire was inserted through the sheath and the sheath was removed. Fluoroscopy assured proper placement. Local anesthetic was further infiltrated on the right neck and tunneling on to the right chest and also for pocket dissection. A 15 blade scalpel was used to make an incision on the right upper chest. A pocket was created. Under fluoroscopy, the dilator sheath was then advanced over the guidewire and the dilator and wire were removed. The Groshong catheter was then inserted through the sheath and the sheath was then removed. The [place]ong wire was removed. The catheter was then tunneled to the pocket created on the right chest. Fluoroscopy was used to cut the catheter to length. The port was placed on the catheter and secured. It was placed within the pocket and then accessed without difficulty and flushed without difficulty first with saline and then with heparin. The subcutaneous tissues were then reapproximated using 3-0 Vicryl. The skin was then closed using Skin Affix both on the insertion point and on the chest pocket. The area was then washed and dried. Sterile bandages were applied. The patient tolerated the procedure well without any complications and entered to recovery room in stable condition. Chest x-ray is pending. Job ID: [id number] DocumentID: [id number] Dictated Date: 07/24/2017 12:22:35 [place] Attendant Date: 07/24/2017 22:49:32 Dictated By: CÉSAR MARSH DO
[2017-08-07] MEDS ORDERED: CEFD300C3 PO (11:44)
[2017-08-07] MEDS ORDERED: PRD10T PO (11:47)
== END 2017-07-24 14:30 | disposition home or self-care (01) ==
LOC: SDC 10:27
PROVIDERS: ATTEND Surgery
DX: C79.51 Secondary malignant neoplasm of bone (principal); R91.8 Other nonspecific abnormal finding of lung field; J44.9 Chronic obstructive pulmonary disease, unspecified; J45.909 Unspecified asthma, uncomplicated; E78.5 Hyperlipidemia, unspecified; G40.909 Epilepsy, unspecified, not intractable, without status epilepticus; I10 Essential (primary) hypertension; G47.33 Obstructive sleep apnea (adult) (pediatric); G14 Postpolio syndrome; Z99.81 Dependence on supplemental oxygen; Z87.891 Personal history of nicotine dependence; Z79.899 Other long term (current) drug therapy
CPT/HCPCS: 71045; 87081; 94664

== ENCOUNTER → 2017-07-28 | Outpatient (CLI) | payer MEDICAID ==
[~2017-07-28] MED LIST changes: +ATOR20TA66 PO; +DEXA4TAB PO; +ROPI0.25 PO; +RPN.25T PO
[2017-07-28 12:25] LABS: BASOPHILS % (AUTO) 0 % (0-10); EOSINOPHILS % (AUTO) 0 % (0-10); HEMATOCRIT 35 % (40-54); HEMOGLOBIN 11.1 G/DL (13.3-17.7); LYMPHOCYTES # (AUTO) 0.7 X 10^3 (1.0-4.0); LYMPHOCYTES % (AUTO) 9 % (12-44); MEAN CORPUSCULAR HEMOGLOBIN 29 PG (25-34); MEAN CORPUSCULAR HGB CONC 32 G/DL (32-36); MEAN CORPUSCULAR VOLUME 91 FL (80-99); MEAN PLATELET VOLUME 8.7 FL (7.4-10.4); MONOCYTES # (AUTO) 0.5 X 10^3 (0.0-1.0); MONOCYTES % (AUTO) 6 % (0-12); NEUTROPHILS # (AUTO) 6.4 X 10^3 (1.8-7.8); NEUTROPHILS % (AUTO) 85 % (42-75); PLATELET COUNT 227 10^3/uL (130-400); RED BLOOD COUNT 3.89 10^6/uL (4.35-5.85); RED CELL DISTRIBUTION WIDTH 14.9 % (10.0-14.5); WHITE BLOOD COUNT 7.5 10^3/uL (4.3-11.0)
--- NOTE | 2017-07-28 12:53 | Diagnostic Imaging Report ---
INDICATION: Shortness of breath and bronchitis. TIME OF EXAM: 12:47 PM Correlation is made with prior study from 07/24/2017. FINDINGS: The heart size is stable. Right chest wall port remains in place. The lungs are hyperinflated consistent with COPD. No significant infiltrate is detected. No effusion or pneumothorax is detected. IMPRESSION: COPD. No acute feature is detected. Dictated by: Dictated on workstation # [id number]
== END ==
LOC: RAD 12:13
PROVIDERS: ATTEND Family Medicine
DX: J44.9 Chronic obstructive pulmonary disease, unspecified (principal)
CPT/HCPCS: 36415; 71046; 85025

== ENCOUNTER 2017-07-29 12:13 | Inpatient (IN) | payer MEDICAID ==
[~2017-07-29] VITALS: Ht 185.4 cm; Wt 72.6 kg
[~2017-07-29 12:13] MED LIST changes: -ATOR20TA66 PO; -DEXA4TAB PO; -ROPI0.25 PO; -RPN.25T PO
--- OUTSIDE RECORDS SUMMARY | 2017-07-29 12:20 | XMS REPORT | Clinical Summary ---
Author Author [facility] Organization [facility] Address Unknown Phone Unavailable Care Team Providers Care Recruitment Advertising Manager Name Role Phone Efra Valentino MD Unavailable Source Comments Some departments are not documenting in the electronic medical record. If you do not see the information that you expected, contact Release of Information in the Health Information Management department at [phone] for further assistance in locating additional records.[facility] Allergies Active Allergy Reactions Severity Noted [...] Active Problems Problem Noted Date Seizures ([facility]) 10/22/2013 Hemiparesis ([facility]) 10/22/2013 Asthma 10/22/2013 COPD (chronic obstructive pulmonary disease) ([facility]) 10/22/2013 Hyperlipidemia 10/22/2013 Weight loss 10/22/2013 Family [...]
[2017-07-29] MEDS ORDERED: methylPREDNISolone 125 MG (Solu-MEDROL) VIAL IVP ONE (12:30)
[2017-07-29] MEDS ORDERED: RT-IPRATROPIUM (ATROVENT) 0.5MG/2.5ML AMP IH ONE (12:30)
[2017-07-29] MEDS ORDERED: RT-ALBUTEROL/IPRATROPIUM 3 ML (DUONEB) VIAL INH ONE (12:30)
[2017-07-29 12:48] LABS: BASOPHILS % (AUTO) 0 % (0-10); EOSINOPHILS % (AUTO) 0 % (0-10); HEMATOCRIT 34 % (40-54); HEMOGLOBIN 10.8 G/DL (13.3-17.7); LYMPHOCYTES # (AUTO) 0.5 X 10^3 (1.0-4.0); LYMPHOCYTES % (AUTO) 5 % (12-44); MEAN CORPUSCULAR HEMOGLOBIN 29 PG (25-34); MEAN CORPUSCULAR HGB CONC 32 G/DL (32-36); MEAN CORPUSCULAR VOLUME 91 FL (80-99); MEAN PLATELET VOLUME 9.5 FL (7.4-10.4); MONOCYTES # (AUTO) 0.4 X 10^3 (0.0-1.0); MONOCYTES % (AUTO) 4 % (0-12); NEUTROPHILS # (AUTO) 9.1 X 10^3 (1.8-7.8); NEUTROPHILS % (AUTO) 91 % (42-75); PLATELET COUNT 205 10^3/uL (130-400); RED BLOOD COUNT 3.67 10^6/uL (4.35-5.85); RED CELL DISTRIBUTION WIDTH 14.8 % (10.0-14.5)
[2017-07-29] MEDS ORDERED: RT-ALBUTEROL SULF 2.5 MG/3 ML PRE-MIX VIAL ONE (13:04)
[2017-07-29] MEDS ORDERED: RT-ALBUTEROL SULF 2.5 MG/3 ML PRE-MIX VIAL INH STA (13:06)
[2017-07-29 13:07] LABS: ALANINE AMINOTRANSFERASE 6 U/L (0-55); ALBUMIN 3.9 GM/DL (3.2-4.5); ALKALINE PHOSPHATASE 129 U/L (40-136); BILIRUBIN,TOTAL 0.3 MG/DL (0.1-1.0); BUN/CREATININE RATIO 16; CALCIUM 8.9 MG/DL (8.5-10.1); CARBON DIOXIDE 29 MMOL/L (21-32); CHLORIDE 94 MMOL/L (98-107); CREATININE SERUM 0.77 MG/DL (0.60-1.30); GFR ESTIMATED > 60; GLUCOSE 213 MG/DL (70-105); POTASSIUM 4.2 MMOL/L (3.6-5.0); SODIUM 134 MMOL/L (135-145); TOTAL PROTEIN 7.5 GM/DL (6.4-8.2)
--- NOTE | 2017-07-29 13:10 | Diagnostic Imaging Report ---
INDICATION: Shortness of air. TIME OF EXAM: 12:52 p.m. Correlation is made with prior study from one day earlier. Right chest wall port has tip overlying the SVC. There appears to be some developing infiltrate in the medial right lung base. Remainder of lung lo are fairly clear. No effusion or pneumothorax is seen. IMPRESSION: Increasing right basilar infiltrate since study one day earlier. Dictated by: Dictated on workstation # [id number]
[2017-07-29 13:15] LABS: BAND NEUTROPHILS 1 %; BASOPHILS % (MANUAL) 0 %; EOSINOPHILS % (MANUAL) 0 %; LYMPHOCYTES % (MANUAL) 2 %; MONOCYTES % (MANUAL) 1 %; NEUTROPHILS % (MANUAL) 96 %; RBC MORPH NORMAL
[2017-07-29] MEDS ORDERED: PIPERACILLIN SODIUM/TAZOBACTAM 4.5 GM in NS (IVPB) 100 ML IV ONE (13:15)
[2017-07-29] MEDS ORDERED: CEFD300C3 PO (14:20)
--- NOTE | 2017-07-29 14:43 | ED Respiratory ---
General Chief Complaint: Respiratory Problems Stated Complaint: LOW O2 STATS Nursing Triage Note: PT AMBULATES TO ROOM 3 PT CO OF STATES CARISSA WAS SENT FROM DR CHURCHILL OFFICE W O2 SAT 82% ON 02 AT 4L PER N/C. PT WAS STARTED ON ANTIBIOTIC YESTERDAY AND IS CURRENTLY TAKING PREDNISONE. PT SCHEDULED TO HAVE FIRST CHEMO TX TODAY Source: patient, family, old records Exam Limitations: no limitations History of Present Illness Date Seen by Provider: July 29, 2017 Time Seen by Provider: 12:20 Initial Comments This 62-year-old gentleman was sent to the emergency room by Dr. Genao for reasons of hypoxia, shortness of breath, and wheezing. He was thought to have bronchitis and was under treatment as an outpatient. He has started Omnicef and prednisone. He is also on dexamethasone as pretreatment for chemotherapy. He was to start chemotherapy today for lung cancer. His oncologist is Dr. Hoffman. He has been afebrile. Despite use of steroids and breathing treatments , he continues to worsen. Allergies and Home Medications Allergies Coded Allergies: aspirin (Unverified Allergy, Mild, DOES NOT WORK WELL W/ OTHER MEDS, ) ibuprofen (Unverified Allergy, Mild, 08/10/15) Home Medications Albuterol Sulfate 2.5 Mg/3 Ml Vial.neb, 2.5 MG NEB 5XD PRN for SHORTNESS OF BREATH, (Reported) Albuterol Sulfate 1 Puff Puff, 2 PUFF IH Q6H PRN for SHORTNESS OF BREATH, ( Reported) 1 PUFF = 90 MCG Amlodipine Besylate 5 Mg Tablet, 5 MG PO DAILY, (Reported) Atorvastatin Calcium 10 Mg Tablet, 10 MG PO 0300, (Reported) Budesonide/Formoterol Fumarate 10.2 Gm Hfa.aer.ad, 2 PUFF IH BID, (Reported) Carbamazepine 200 Mg Tablet, 200 MG PO 0800,2300,0300, (Reported) Carbamazepine 200 Mg Tablet, 400 MG PO 1500, (Reported) TAKES 2 (200 MG) TABLETS Cefdinir 300 Mg Capsule, 300 MG PO BID, (Reported) Fluticasone/Salmeterol 1 Each Blst.w.dev, 1 PUFF IH BID, (Reported) Gabapentin 300 Mg Capsule, 300 MG PO 2300, (Reported) Gabapentin 600 Mg Tablet, 600 MG PO 0800,1500, (Reported) Lamotrigine 100 Mg Tablet, 100 MG PO 1500,2300, (Reported) Lamotrigine 25 Mg Tablet, 25 MG PO 1500,0300, (Reported) Lisinopril 20 Mg Tablet, 20 MG PO 0300, (Reported) Meloxicam 15 Mg Tablet, 15 MG PO 1500, (Reported) Pantoprazole Sodium 40 Mg Tablet.dr, 40 MG PO DAILY, (Reported) Phenytoin Sodium Extended 100 Mg Capsule, 200 MG PO 1500, (Reported) TAKES 2 (100 MG) CAPSULES Phenytoin Sodium Extended 100 Mg Capsule, 100 MG PO 0800,2300, (Reported) Tiotropium [place] 1 Inh Aerp, 1 CAP IH HS, (Reported) Patient Home Medication List Home Medication List Reviewed: Yes Review of Systems Constitutional: no symptoms reported EENTM: no symptoms reported Respiratory: see HPI Cardiovascular: no symptoms reported Gastrointestinal: no symptoms reported Genitourinary: no symptoms reported Musculoskeletal: no symptoms reported Skin: no symptoms reported Psychiatric/Neurological: No Symptoms Reported Hematologic/Lymphatic: No Symptoms Reported Immunological/Allergic: no symptoms reported Past Nqltqfr-Nmwpkp-Lykxyi Hx Patient Social History Alcohol Use: Denies Use Recreational Drug Use: Yes (not current, 15 years ago-ETOH and PO drugs) Smoking Status: Former Smoker Type Used: Cigarettes Former Smoker, Quit: Mar 02, 2017 Recent Foreign Travel: No Contact w/Someone Who Travel: No Recent Infectious Disease Expo: No Recent Hopitalizations: Yes Physical Abuse: No Sexual Abuse: No Immunizations Up To Date Tetanus Booster (TDap): Unknown PED Vaccines UTD: Yes Seasonal Allergies Seasonal Allergies: Yes Past Medical History Surgeries: Yes Gallbladder Respiratory: Yes (lung cancer) Asthma, Sleep Apnea, COPD Currently Using CPAP: No Currently Using BIPAP: Yes Cardiac: Yes High Cholesterol, Hypertension Neurological: Yes (post polio syndrome with left-sided deficits) Seizure Disorder Reproductive Disorders: No Sexually Transmitted Disease: No HIV/AIDS: No Genitourinary: No Gastrointestinal: No Musculoskeletal: Yes Arthritis Endocrine: No HEENT: No Loss of Vision: Denies Hearing Impairment: Denies Cancer: No Psychosocial: No Nursing Suicide Risk Score: 0 Integumentary: No Blood Disorders: No Adverse Reaction/Blood Tranf: No Family Medical History Hypercholesterolemia 19 FATHER Hypertension 19 FATHER No Pertinent Family Hx, Heart Disease Physical Exam Vital Signs Vital Signs - First Documented 07/29/17 07/29/17 12:15 13:13 Temp 98.5 Pulse 70 Resp 24 B/P (MAP) 174/91 (118) Pulse Ox 96 O2 Delivery Nasal Cannula O2 Flow Rate 5.00 FiO2 96 Capillary Refill : Less Than 3 Seconds General Appearance: WD/WN, no apparent distress HEENT: PERRL/EOMI, normal ENT inspection, pharynx normal Neck: normal inspection Respiratory: respiratory distress, decreased breath sounds, accessory muscle use, wheezing Cardiovascular: regular rate, rhythm, no edema, no murmur Gastrointestinal: normal bowel sounds, non tender, soft Extremities: normal inspection, no pedal edema 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 nml as tested, no motor/sensory deficits, alert, normal mood/affect, oriented x 3 Skin: normal color, warm/dry Focused Exam Lactate Level 07/29/17 12:28: Lactic Acid Level 3.33*H 07/29/17 14:24: Lactic Acid Level 1.81 Lactic Acid Level Laboratory Tests Test 07/29/17 12:28 07/29/17 14:24 Lactic Acid Level 3.33 MMOL/L (0.50-2.00) *H 1.81 MMOL/L (0.50-2.00) Procedures/Interventions Date of ETT Placement: Mar 09, 2017 Time of ETT Placement: 1811 Suture Size: 5-0 Progress/Results/Core Measures Suspected Sepsis Recent Fever Within 48 Hours: No Infection Criteria Present: None New/Unexplained Altered Menta: No Sepsis Screen: No Definite Risk SIRS Temperature:98.5 Pulse: 70 Respiratory Rate: 24 Laboratory Tests 07/29/17 12:28: White Blood Count 10.0 Blood Pressure 174 /91 Mean: 118 07/29/17 12:28: Lactic Acid Level 3.33*H 07/29/17 14:24: Lactic Acid Level 1.81 Laboratory Tests 07/29/17 12:28: Creatinine 0.77, Platelet Count 205, Total Bilirubin 0.3 Results/Orders Lab Results Laboratory Tests Test 07/29/17 12:28 07/29/17 14:24 Range/Units White Blood Count 10.0 4.3-11.0 10^3/uL Red Blood Count 3.67 L 4.35-5.85 10^6/uL Hemoglobin 10.8 L 13.3-17.7 G/DL Hematocrit 34 L 40-54 % Mean Corpuscular Volume 91 80-99 FL Mean Corpuscular Hemoglobin 29 25-34 PG Mean Corpuscular Hemoglobin Concent 32 32-36 G/DL Red Cell Distribution Width 14.8 H 10.0-14.5 % Platelet Count 205 130-400 10^3/uL Mean Platelet Volume 9.5 7.4-10.4 FL Neutrophils (%) (Auto) 91 H 42-75 % Lymphocytes (%) (Auto) 5 L 12-44 % Monocytes (%) (Auto) 4 0-12 % Eosinophils (%) (Auto) 0 0-10 % Basophils (%) (Auto) 0 0-10 % Neutrophils # (Auto) 9.1 H 1.8-7.8 X 10^3 Lymphocytes # (Auto) 0.5 L 1.0-4.0 X 10^3 Monocytes # (Auto) 0.4 0.0-1.0 X 10^3 Eosinophils # (Auto) 0.0 0.0-0.3 10^3/uL Basophils # (Auto) 0.0 0.0-0.1 10^3/uL Neutrophils % (Manual) 96 % Lymphocytes % (Manual) 2 % Monocytes % (Manual) 1 % Eosinophils % (Manual) 0 % Basophils % (Manual) 0 % Band Neutrophils 1 % Blood Morphology Comment NORMAL Sodium Level 134 L 135-145 MMOL/L Potassium Level 4.2 3.6-5.0 MMOL/L Chloride Level 94 L 98-107 MMOL/L Carbon Dioxide Level 29 21-32 MMOL/L Anion Gap 11 5-14 MMOL/L Blood Urea Nitrogen 12 7-18 MG/DL Creatinine 0.77 0.60-1.30 MG/DL Estimat Glomerular Filtration Rate > 60 BUN/Creatinine Ratio 16 Glucose Level 213 H 70-105 MG/DL Lactic Acid Level 3.33 *H 1.81 0.50-2.00 MMOL/L Calcium Level 8.9 8.5-10.1 MG/DL Total Bilirubin 0.3 0.1-1.0 MG/DL Aspartate Amino Transf (AST/SGOT) 13 5-34 U/L Alanine Aminotransferase (ALT/SGPT) 6 0-55 U/L Alkaline Phosphatase 129 40-136 U/L C-Reactive Protein High Sensitivity 5.90 H 0.00-0.50 MG/DL B-Type Natriuretic Peptide 187.7 H <100.0 PG/ML Total Protein 7.5 6.4-8.2 GM/DL Albumin 3.9 3.2-4.5 GM/DL My Orders Orders - STEFAN HERNANDEZ MD BNP (07/29/17 12:23) Cbc With Automated Diff (07/29/17 12:23) Comprehensive Metabolic Panel (07/29/17 12:23) Hs C Reactive Protein (07/29/17 12:23) Chest 1 View, Ap/Pa Only (07/29/17 12:23) Ipratropium 0.02% Neb Solution (Atrovent (07/29/17 12:30) Albuterol/Ipra Inhalation Soln (Duoneb I (07/29/17 12:30) Methylprednisolone Sod Succ (Solu-Medrol (07/29/17 12:30) Manual Differential (07/29/17 12:28) Albuterol Pre-Mix Nebs (Rt) (Proventil (07/29/17 13:06) Albuterol Pre-Mix Nebs (Rt) (Proventil (07/29/17 13:04) Piperacillin Sodium/Tazobactam (Zosyn Vi (07/29/17 13:15) Blood Culture (07/29/17 13:11) Lactic Acid Analyzer (07/29/17 13:11) Medications Given in ED Current Medications Medications Dose Ordered Sig/Porfirio Route Start Time Stop Time Status Last Admin Dose Admin Ipratropium [place] 0.5 mg ONCE ONCE IH 07/29/17 12:30 07/29/17 12:31 DC 07/29/17 13:10 0.5 MG Methylprednisolone Sodium Succinate 62.5 mg ONCE ONCE IVP 07/29/17 12:30 07/29/17 12:31 DC 07/29/17 13:03 62.5 MG Piperacillin Sod/ Tazobactam Sod 4.5 gm/Sodium Chloride 100 ml @ 200 mls/hr ONCE ONCE IV 07/29/17 13:15 07/29/17 13:44 DC 07/29/17 13:29 200 MLS/HR Vital Signs/I&O 07/29/17 07/29/17 12:15 13:13 Temp 98.5 Pulse 70 Resp 24 B/P (MAP) 174/91 (118) Pulse Ox 96 96 O2 Delivery Nasal Cannula Nasal Cannula O2 Flow Rate 5.00 3.00 FiO2 96 Capillary Refill : Less Than 3 Seconds Blood Pressure Mean: 118 Progress Note : Progress Note Patient received an hour long breathing treatment with some improvement. However, even after the treatment he developed hypoxia. BiPAP was then initiated. Solu-Medrol 62.5 mg IV was administered. There was a subtle increase in right lower lung infiltrate from prior x-ray. Pneumonia was suspected. Blood culture and lactic acid were drawn. Antibiotic therapy was started with Zosyn. Case was reviewed with Dr. Genao. I also discussed the case with Dr. Hoffman who is agreeable to join the case as a recruiting and selection consultant and Dr. Genao requests. Diagnostic Imaging Diagonstic Imaging: Xray Plain Films/CT/US/NM/MRI: chest Comments Chest x-ray viewed by me and report reviewed. See report below: NAME: CR QUIJANO [facility] REC#: [id number] PT STATUS: REG ER : 1955 PHYSICIAN: STEFAN HERNANDEZ MD ADMIT DATE: 07/29/17/ER Draft Date of Exam:07/29/17 CHEST 1 VIEW, AP/PA ONLY INDICATION: Shortness of air. TIME OF EXAM: 12:52 p.m. Correlation is made with prior study from one day earlier. Right chest wall port has tip overlying the SVC. There appears to be some developing infiltrate in the medial right lung base. Remainder of lung lo are fairly clear. No effusion or pneumothorax is seen. IMPRESSION: Increasing right basilar infiltrate since study one day earlier. Dictated on workstation # [id number] Dict: 07/29/17 1305 Trans: 07/29/17 1309 [facility] [id number] Interpreted by: ALAN PAYNE MD Departure Impression Primary Impression: Right lower lobe pneumonia Qualified Codes: J18.1 - Lobar pneumonia, unspecified organism Additional Impressions: Hypoxia Lung cancer Qualified Codes: C34.90 - Malignant neoplasm of unspecified part of unspecified bronchus or lung COPD exacerbation Disposition: ADMITTED INPATIENT Condition: Improved Admissions Decision to Admit Reason: Admit from ER (General) Decision to Admit/Date: July 29, 2017 Time/Decision to Admit Time: 12:30 Departure-Patient Inst. Referrals: AMANDEEP GENAO DO (PCP/Family) Primary Care Physician STEFAN HERNANDEZ MD July 29, 2017 14:43
--- OUTSIDE RECORDS SUMMARY | 2017-07-29 14:56 | XMS REPORT | Clinical Summary ---
Author Author [facility] Organization [facility] Address Unknown Phone Unavailable Care Team Providers Care Computer Programming Supervisor Name Role Phone Efra Valentino MD Unavailable Source Comments Some departments are not documenting in the electronic medical record. If you do not see the information that you expected, contact Release of Information in the Health Information Management department at [phone] for further assistance in locating additional records.[facility] Allergies Active Allergy Reactions Severity [...] 16 Active Problems Problem Noted Date Seizures ([facility]) 10/22/2013 Hemiparesis ([facility]) 10/22/2013 Asthma 10/22/2013 COPD (chronic obstructive pulmonary disease) ([facility]) 10/22/2013 Hyperlipidemia 10/22/2013 Weight loss 10/22/2013 [...]
[2017-07-29 16:30] VITALS: BP 130/70
[2017-07-29] MEDS ORDERED: NS IV 1000 ML 1,000 ML ONE (16:43)
[2017-07-29] MEDS: NS IV 1000 ML 1,000 ML IV SCH (16:43)
[2017-07-29] MEDS ORDERED: CATHETER FLUSH 10 ML SYR IV PRN (17:15)
[2017-07-29] MEDS: predniSONE 20 MG TAB PO SCH (17:44)
[2017-07-29] MEDS ORDERED: RT-ALBUTEROL/IPRATROPIUM 3 ML (DUONEB) VIAL ONE ×2 (18:11→21:27)
[2017-07-29] MEDS: carBAMazepine 200 MG (TEGretol) TAB PO SCH ×2 (18:21→23:25)
[2017-07-29] MEDS: lamoTRIgine 25 MG (LaMICtal) TAB PO SCH (18:21)
[2017-07-29] MEDS: GABAPENTIN 600 MG (NEURONTIN) TAB PO SCH (18:21)
[2017-07-29 19:45] VITALS: BP 118/64
[2017-07-29] MEDS: PIPERACILLIN SODIUM/TAZOBACTAM 4.5 GM in NS (IVPB) 100 ML IV SCH (20:35)
[2017-07-29] MEDS: PHENYTOIN 100 MG (DILANTIN) CAP PO SCH (23:25)
[2017-07-29] MEDS: GABAPENTIN 300 MG (NEURONTIN) CAP PO SCH (23:25)
[2017-07-29] MEDS ORDERED: rOPINIRole 0.25 MG (REQUIP) TAB ONE (23:58)
[2017-07-30] VITALS (7 sets, daily range): BP systolic 130–170; BP diastolic 58–90
[2017-07-30] MEDS: rOPINIRole 0.25 MG (REQUIP) TAB PO SCH ×4 (00:09→20:33)
[2017-07-30] MEDS: RT-ALBUTEROL/IPRATROPIUM 3 ML (DUONEB) VIAL INH SCH ×7 (01:17→19:06)
[2017-07-30] MEDS: lisINopril 20 MG (PRINIVIL) TABLET PO SCH (03:12)
[2017-07-30] MEDS: carBAMazepine 200 MG (TEGretol) TAB PO SCH ×4 (03:12→23:03)
[2017-07-30] MEDS: lamoTRIgine 25 MG (LaMICtal) TAB PO SCH ×2 (03:12→16:36)
[2017-07-30] MEDS: ATORVASTATIN 10 MG (LIPITOR) TABLET PO SCH (03:13)
[2017-07-30] MEDS: PIPERACILLIN SODIUM/TAZOBACTAM 4.5 GM in NS (IVPB) 100 ML IV SCH ×3 (05:13→20:33)
[2017-07-30] MEDS: NS IV 1000 ML 1,000 ML IV SCH ×2 (05:14→19:55)
[2017-07-30 05:31] LABS: BASOPHILS % (AUTO) 0 % (0-10); EOSINOPHILS % (AUTO) 0 % (0-10); HEMATOCRIT 30 % (40-54); HEMOGLOBIN 9.6 G/DL (13.3-17.7); LYMPHOCYTES # (AUTO) 0.7 X 10^3 (1.0-4.0); LYMPHOCYTES % (AUTO) 14 % (12-44); MEAN CORPUSCULAR HEMOGLOBIN 29 PG (25-34); MEAN CORPUSCULAR HGB CONC 32 G/DL (32-36); MEAN CORPUSCULAR VOLUME 92 FL (80-99); MEAN PLATELET VOLUME 9.1 FL (7.4-10.4); MONOCYTES # (AUTO) 0.7 X 10^3 (0.0-1.0); MONOCYTES % (AUTO) 15 % (0-12); NEUTROPHILS # (AUTO) 3.5 X 10^3 (1.8-7.8); NEUTROPHILS % (AUTO) 71 % (42-75); PLATELET COUNT 183 10^3/uL (130-400); RED BLOOD COUNT 3.28 10^6/uL (4.35-5.85); WHITE BLOOD COUNT 4.9 10^3/uL (4.3-11.0)
[2017-07-30 05:54] LABS: ALANINE AMINOTRANSFERASE < 6 U/L (0-55); ALBUMIN 3.6 GM/DL (3.2-4.5); ALKALINE PHOSPHATASE 107 U/L (40-136); BILIRUBIN,TOTAL 0.1 MG/DL (0.1-1.0); BUN/CREATININE RATIO 13; CALCIUM 8.4 MG/DL (8.5-10.1); CARBON DIOXIDE 32 MMOL/L (21-32); CHLORIDE 101 MMOL/L (98-107); CREATININE SERUM 0.61 MG/DL (0.60-1.30); GFR ESTIMATED > 60; GLUCOSE 154 MG/DL (70-105); POTASSIUM 4.1 MMOL/L (3.6-5.0); SODIUM 139 MMOL/L (135-145)
[2017-07-30] MEDS: predniSONE 20 MG TAB PO SCH (06:14)
--- NOTE | 2017-07-30 07:41 | History & Physicial ---
History of Present Illness History of Present Illness Reason for visit/HPI Patient came to the office Friday short of breath. Patient has history of COPD. Patient has lung cancer. Patient to start chemotherapy. Patient came to the office yesterday feeling worse. Pulse ox with 4 L of nasal oxygen was 81. Patient sent out to the emergency room. Chest x-ray shows right lower lobe pneumonia. Patient admitted. Patient has a history of seizures. Lung cancer Date of Admission July 29, 2017 at 14:37 Time Seen by Provider: 07:40 I consulted on this patient on 07/30/17 07:38 Attending Physician Micky Genao DO Admitting Physician Micky Genao DO Consult Allergies and Home Medications Allergies Coded Allergies: aspirin (Unverified Allergy, Mild, DOES NOT WORK WELL W/ OTHER MEDS, ) ibuprofen (Unverified Allergy, Mild, 08/10/15) Home Medications Albuterol Sulfate 2.5 Mg/3 Ml Vial.neb, 2.5 MG NEB 5XD PRN for SHORTNESS OF BREATH, (Reported) Albuterol Sulfate 1 Puff Puff, 2 PUFF IH Q6H PRN for SHORTNESS OF BREATH, ( Reported) 1 PUFF = 90 MCG Amlodipine Besylate 5 Mg Tablet, 5 MG PO DAILY, (Reported) Atorvastatin Calcium 10 Mg Tablet, 10 MG PO 0300, (Reported) Budesonide/Formoterol Fumarate 10.2 Gm Hfa.aer.ad, 2 PUFF IH BID, (Reported) Carbamazepine 200 Mg Tablet, 200 MG PO 0800,2300,0300, (Reported) Carbamazepine 200 Mg Tablet, 400 MG PO 1500, (Reported) TAKES 2 (200 MG) TABLETS Cefdinir 300 Mg Capsule, 300 MG PO BID, (Reported) Fluticasone/Salmeterol 1 Each Blst.w.dev, 1 PUFF IH BID, (Reported) Gabapentin 300 Mg Capsule, 300 MG PO 2300, (Reported) Gabapentin 600 Mg Tablet, 600 MG PO 0800,1500, (Reported) Lamotrigine 100 Mg Tablet, 100 MG PO 1500,2300, (Reported) Lamotrigine 25 Mg Tablet, 25 MG PO 1500,0300, (Reported) Lisinopril 20 Mg Tablet, 20 MG PO 0300, (Reported) Meloxicam 15 Mg Tablet, 15 MG PO 1500, (Reported) Phenytoin Sodium Extended 100 Mg Capsule, 200 MG PO 1500, (Reported) TAKES 2 (100 MG) CAPSULES Phenytoin Sodium Extended 100 Mg Capsule, 100 MG PO 0800,2300, (Reported) Tiotropium [place] 1 Inh Aerp, 1 CAP IH DAILY, (Reported) Patient Home Medication List Home Medication List Reviewed: Yes Past Dhmzznt-Yjndyc-Rfzdri Hx Patient Social History Marrital Status: single Employed/Student: unemployed Alcohol Use: Past History Recreational Drug Use: Yes (not current, 15 years ago-ETOH and PO drugs) Smoking Status: Former Smoker Former Smoker, Quit: Jan 29, 2017 Type Used: Cigarettes Physical Abuse Screen: No Sexual Abuse: No Recent Foreign Travel: No Contact w/other who traveled: No Recent Hopitalizations: Yes Recent Infectious Disease Expo: No Immunizations Up To Date Tetanus Booster (TDap): Unknown Pediatric: Yes Seasonal Allergies Seasonal Allergies: Yes Surgeries Yes Gallbladder Respiratory Yes (lung cancer) COPD, Emphysema, Pneumonia Currently Using CPAP: No Currently Using BIPAP: Yes Cardiovascular Yes High Cholesterol, Hypertension 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) Seizure Disorder Reproductive System Hx Reproductive Disorders: No Sexually Transmitted Disease: No HIV/AIDS: No Genitourinary No Gastrointestinal No Musculoskeletal Yes Arthritis Endocrine History of Endocrine Disorders: No HEENT History of HEENT Disorders: No Loss of Vision: Denies Hearing Impairment: Denies Cancer No Psychosocial History of Psychiatric Problem: No Integumentary History of Skin or Integumenta: No Blood Transfusions History of Blood Disorders: No Adverse Reaction to a Blood Tr: No Family Medical History Significant Family History: No Pertinent Family Hx, Heart Disease Family Hx: Hypercholesterolemia 19 FATHER Hypertension 19 FATHER Constitutional: malaise, weakness EENTM: no symptoms reported Respiratory: dyspnea on exertion, short of breath Cardiovascular: no symptoms reported Gastrointestinal: no symptoms reported Genitourinary: no symptoms reported Physical Exam Vital Signs Vital Signs - First Documented 07/29/17 07/29/17 12:15 13:13 Temp 98.5 Pulse 70 Resp 24 B/P (MAP) 174/91 (118) Pulse Ox 96 O2 Delivery Nasal Cannula O2 Flow Rate 5.00 FiO2 96 Capillary Refill : Less Than 3 Seconds General Appearance: Thin Eyes: Bilateral Eye Normal Inspection HEENT: Normal ENT Inspection Neck: Normal Inspection Respiratory: Decreased Breath Sounds, Wheezing Cardiovascular: Regular Rate, Rhythm, No Murmur Gastrointestinal: Non Tender, Soft Assessment/Plan Assessment and Plan 8 lower lobe pneumonia. Hypoxia. COPD with acute exacerbation. Lung cancer. Seizure disorder Admission Diagnosis Admission Status: Inpatient Order (span 2 midnights) Reason for Inpatient Admission: Hypoxia. Pneumonia. Lung cancer. COPD with acute exacerbation Clinical Quality Measures DVT/VTE Risk/Contraindication: Risk Factor Score Per Nursin RFS Level Per Nursing on Admit: 4+=Very High MICKY GENAO DO July 30, 2017 07:41
[2017-07-30] MEDS ORDERED: ENOXAPARIN 30 MG/0.3 ML (LOVENOX) SYR SC SCH (07:45)
--- NOTE | 2017-07-30 07:49 | Pulmonary Consultation ---
History of Present Illness History of Present Illness Date of Consultation 07/30/17 07:44 Time Seen by Provider: 07:45 Date of Admission History of Present Illness 62yo with hx of severe COPD and lung cancer presented to ED from Dr. Genao' s office secondary to hypoxia and progressive SOB. PT had first chemo treatment yesterday prior to admission. Despite out patient treatment with abx and steroids pt continues to worsen. I am consulted for pulmonary management. Allergies and Home Medications Allergies Coded Allergies: aspirin (Unverified Allergy, Mild, DOES NOT WORK WELL W/ OTHER MEDS, ) ibuprofen (Unverified Allergy, Mild, 08/05/17) Home Medications Albuterol Sulfate 2.5 Mg/3 Ml Vial.neb, 2.5 MG NEB 5XD PRN for SHORTNESS OF BREATH, (Reported) Albuterol Sulfate 1 Puff Puff, 2 PUFF IH Q6H PRN for SHORTNESS OF BREATH, ( Reported) 1 PUFF = 90 MCG Amlodipine Besylate 5 Mg Tablet, 5 MG PO DAILY, (Reported) Atorvastatin Calcium 20 Mg Tablet, 20 MG PO 0300, (Reported) Carbamazepine 200 Mg Tablet, 200 MG PO 0800,2300,0300, (Reported) Carbamazepine 200 Mg Tablet, 400 MG PO 1500, (Reported) TAKES 2 (200 MG) TABLETS Cefdinir 300 Mg Capsule, 300 MG PO BID FILLED 08/03/17 #20 FOR A 10 DAY THERAPY Prescribed by: AMANDEEP GENAO on 08/07/17 1144 Dexamethasone 4 Mg Tablet, PO UD, (Reported) TAKE 3 (4MG) TABLETS THE NIGHT BEFORE AND MORNING OF CHEMO Gabapentin 300 Mg Capsule, 300 MG PO 2300, (Reported) Gabapentin 600 Mg Tablet, 600 MG PO 0800,1500, (Reported) Lamotrigine 100 Mg Tablet, 100 MG PO 1500,2300, (Reported) Lamotrigine 25 Mg Tablet, 25 MG PO 1500,0300, (Reported) Lisinopril 20 Mg Tablet, 20 MG PO 0300, (Reported) Phenytoin Sodium Extended 100 Mg Capsule, 200 MG PO 1500, (Reported) TAKES 2 (100 MG) CAPSULES Phenytoin Sodium Extended 100 Mg Capsule, 100 MG PO 0800,2300, (Reported) Prednisone 10 Mg Tab, 60 MG PO DAILY@1200 Take 5 tabs(50mg)daily, decrease by 1 tab(10mg) every other day. Prescribed by: AMANDEEP GENAO on 08/07/17 1147 Ropinirole HCl 0.25 Mg Tablet, 0.25 MG PO Q8H, (Reported) Tiotropium Tyler 1 Inh Aerp, 1 CAP IH DAILY, (Reported) Past Hfnczga-Gusmqn-Deqjgv Hx Patient Social History Alcohol Use: Past History Recreational Drug Use: Yes (not current, 15 years ago-ETOH and PO drugs) Smoking Status: Former Smoker Type Used: Cigarettes Former Smoker, Quit: Jan 29, 2017 Recent Foreign Travel: No Contact w/Someone Who Travel: No Recent Infectious Disease Expo: No Recent Hopitalizations: Yes Physical Abuse: No Sexual Abuse: No Immunizations Up To Date Tetanus Booster (TDap): Unknown PED Vaccines UTD: Yes Seasonal Allergies Seasonal Allergies: Yes Past Medical History Surgeries: Yes Gallbladder Respiratory: Yes (lung cancer) Asthma, Sleep Apnea, COPD Currently Using CPAP: No Currently Using BIPAP: Yes Cardiac: Yes High Cholesterol, Hypertension Neurological: Yes (post polio syndrome with left-sided deficits) Seizure Disorder Reproductive Disorders: No Sexually Transmitted Disease: No HIV/AIDS: No Genitourinary: No Gastrointestinal: No Musculoskeletal: Yes Arthritis Endocrine: No HEENT: No Loss of Vision: Denies Hearing Impairment: Denies Cancer: No Psychosocial: No Nursing Suicide Risk Score: 0 Integumentary: No Blood Disorders: No Adverse Reaction/Blood Tranf: No Family Medical History Hypercholesterolemia 19 FATHER Hypertension 19 FATHER No Pertinent Family Hx, Heart Disease Review of Systems Time Seen by Provider: 07:27 Constitutional: Chills, Sweats, Weakness, Malaise Eyes: No: Pain, Vision change, Conjunctivae inflammation, Eyelid inflammation, Other, Redness Respiratory: Cough, Shortness of breath, Wheezing, Sputum Cardiovascular: Paroxysmal Noc. Dyspnea Gastrointestinal: No: Nausea, Vomiting, Diarrhea Genitourinary: No Dysuria, No Frequency, No Incontinence, No Hematuria, No Retention, No Other Neurological: Weakness, Confusion Exam Exam Vital Signs Date Time Temp Pulse Resp B/P (MAP) Pulse Ox O2 Delivery O2 Flow Rate FiO2 07/30/17 06:33 92 Nasal Cannula 4.50 07/30/17 03:52 97.8 83 20 140/82 (101) 94 Nasal Cannula 5.00 07/30/17 01:17 94 Nasal Cannula 4.50 07/30/17 01:06 97.9 80 17 130/67 (88) 95 Nasal Cannula 5.00 07/30/17 00:02 97.9 80 17 130/67 (88) 95 Nasal Cannula 5.00 07/29/17 22:00 92 Nasal Cannula 4.50 07/29/17 21:00 95 Nasal Cannula 4.00 07/29/17 19:45 98.7 76 22 118/64 (82) 92 Nasal Cannula 5.00 07/29/17 18:25 93 Nasal Cannula 4.50 07/29/17 17:09 64 93 07/29/17 17:05 Nasal Cannula 5.00 07/29/17 17:00 Nasal Cannula 5.00 07/29/17 16:30 98.0 64 22 130/70 (90) 93 Nasal Cannula 4.00 07/29/17 15:27 68 18 147/82 91 NIV Bilevel 07/29/17 15:03 72 15 92 07/29/17 13:13 96 Nasal Cannula 3.00 96 07/29/17 12:15 98.5 70 24 174/91 (118) 96 Nasal Cannula 5.00 I & O 07/30/17 07:00 Intake Total 1620 ml Balance 1620 ml General Appearance: Mild Distress, Thin HEENT: Normal ENT Inspection Neck: Normal Inspection Respiratory: Decreased Breath Sounds, Wheezing Cardiovascular: Regular Rate, Rhythm, No Murmur Capillary Refill: Less Than 3 Seconds Gastrointestinal: normal bowel sounds, non tender, soft Results Lab Laboratory Tests 07/29/17 12:28 07/30/17 05:20 Assessment/Plan Assessment/Plan Acute on chronic respiratory failure with COPDAE -SVNS -Solumedrol -oxygen Lung cancer -Follows with RANI Cook DO July 30, 2017 07:49
[2017-07-30] MEDS: GABAPENTIN 600 MG (NEURONTIN) TAB PO SCH ×2 (08:06→16:36)
[2017-07-30] MEDS: amLODIPine 5 MG (NORVASC) TAB PO SCH (08:07)
[2017-07-30] MEDS: ENOXAPARIN 40 MG/0.4 ML (LOVENOX) SYR SC SCH (08:07)
[2017-07-30] MEDS: PHENYTOIN 100 MG (DILANTIN) CAP PO SCH ×3 (08:07→23:03)
--- NOTE | 2017-07-30 08:29 | Diagnostic Imaging Report ---
INDICATION: Shortness of air. TIME OF EXAM: 7:46 AM Correlation is made with prior study one day earlier. FINDINGS: Right chest wall port has tip overlying the SVC. The heart size is stable. Lungs are hyperinflated consistent with COPD. Basilar infiltrate/atelectasis shows mild improvement particularly in the medial right base. No effusion or pneumothorax is seen. IMPRESSION: Improving infiltrates when compared with examination one day earlier. Dictated by: Dictated on workstation # [id number]
[2017-07-30] MEDS ORDERED: PRD10T PO (10:11)
[2017-07-30] MEDS ORDERED: DEXA4TAB PO (10:11)
[2017-07-30] MEDS ORDERED: RT-ALBUTEROL/IPRATROPIUM 3 ML (DUONEB) VIAL INH PRN (23:00)
[2017-07-30] MEDS: GABAPENTIN 300 MG (NEURONTIN) CAP PO SCH (23:03)
[2017-07-31] VITALS: BP 139/88
[2017-07-31] MEDS: lamoTRIgine 25 MG (LaMICtal) TAB PO SCH ×2 (02:41→14:31)
[2017-07-31] MEDS: carBAMazepine 200 MG (TEGretol) TAB PO SCH ×4 (02:41→23:13)
[2017-07-31] MEDS: lisINopril 20 MG (PRINIVIL) TABLET PO SCH (02:41)
[2017-07-31] MEDS: ATORVASTATIN 10 MG (LIPITOR) TABLET PO SCH (02:41)
[2017-07-31] MEDS: RT-ALBUTEROL/IPRATROPIUM 3 ML (DUONEB) VIAL INH SCH ×6 (02:56→22:33)
[2017-07-31] MEDS: PIPERACILLIN SODIUM/TAZOBACTAM 4.5 GM in NS (IVPB) 100 ML IV SCH ×3 (04:25→20:55)
[2017-07-31 05:27] LABS: HEMOGLOBIN 9.9 G/DL (13.3-17.7); MEAN PLATELET VOLUME 9.4 FL (7.4-10.4); RED BLOOD COUNT 3.42 10^6/uL (4.35-5.85); WHITE BLOOD COUNT 6.1 10^3/uL (4.3-11.0)
[2017-07-31 05:45] LABS: ALANINE AMINOTRANSFERASE 9 U/L (0-55); ALBUMIN 3.5 GM/DL (3.2-4.5); ALKALINE PHOSPHATASE 97 U/L (40-136); BILIRUBIN,TOTAL 0.2 MG/DL (0.1-1.0); BUN/CREATININE RATIO 10; CALCIUM 8.5 MG/DL (8.5-10.1); CARBON DIOXIDE 30 MMOL/L (21-32); CHLORIDE 101 MMOL/L (98-107); CREATININE SERUM 0.67 MG/DL (0.60-1.30); GFR ESTIMATED > 60; GLUCOSE 100 MG/DL (70-105); POTASSIUM 3.8 MMOL/L (3.6-5.0); SODIUM 140 MMOL/L (135-145); TOTAL PROTEIN 6.6 GM/DL (6.4-8.2)
[2017-07-31] MEDS: rOPINIRole 0.25 MG (REQUIP) TAB PO SCH ×4 (05:47→20:55)
[2017-07-31] MEDS: predniSONE 20 MG TAB PO SCH (05:48)
--- NOTE | 2017-07-31 07:49 | Progress Note (SOAP) ---
Subjective Time Seen by Provider: 07:45 Subjective/Events-last exam Patient feeling 50-75 percent better with his breathing. Patient has pneumonia. Chest x-ray yesterday shows resolving. Waiting for today's chest x-ray report. Plan to discharge tomorrow Focused Exam Lactate Level 07/29/17 12:28: Lactic Acid Level 3.33*H 07/29/17 14:24: Lactic Acid Level 1.81 Objective Exam Vital Signs Date Time Temp Pulse Resp B/P (MAP) Pulse Ox O2 Delivery O2 Flow Rate FiO2 07/31/17 07:11 94 Nasal Cannula 4.00 07/31/17 02:56 85 Nasal Cannula 4.00 07/31/17 00:00 97.5 72 19 139/88 (105) 97 Nasal Cannula 5.00 07/30/17 23:00 93 Nasal Cannula 4.00 07/30/17 21:00 Nasal Cannula 4.00 07/30/17 20:00 96.4 70 16 148/90 (109) 97 07/30/17 19:06 96 Nasal Cannula 4.00 07/30/17 16:09 93 Nasal Cannula 4.50 07/30/17 16:00 97.0 69 18 170/80 (110) 95 07/30/17 12:00 98.2 64 18 142/58 (86) 95 Nasal Cannula 5.00 07/30/17 11:13 94 Nasal Cannula 4.50 07/30/17 08:20 95 Nasal Cannula 4.00 07/30/17 08:00 97.1 69 18 170/67 (101) 94 Nasal Cannula 5.00 I & O 07/31/17 07:00 Intake Total 3036 ml Balance 3036 ml Capillary Refill : Less Than 3 Seconds General Appearance: No Apparent Distress, Thin HEENT: Normal ENT Inspection Neck: Full Range of Motion, Normal Inspection Respiratory: No Accessory Muscle Use, No Respiratory Distress, Decreased Breath Sounds Cardiovascular: Regular Rate, Rhythm, No Murmur Gastrointestinal: non tender, soft Results Lab Laboratory Tests 07/31/17 05:20 Laboratory Tests 07/31/17 05:20: White Blood Count 6.1, Red Blood Count 3.42L, Hemoglobin 9.9L, Hematocrit 32L, Mean Corpuscular Volume 93, Mean Corpuscular Hemoglobin 29, Mean Corpuscular Hemoglobin Concent 31L, Red Cell Distribution Width 15.0H, Platelet Count 213, Mean Platelet Volume 9.4, Sodium Level 140, Potassium Level 3.8, Chloride Level 101, Carbon Dioxide Level 30, Anion Gap 9, Blood Urea Nitrogen 7, Creatinine 0.67, Estimat Glomerular Filtration Rate > 60, BUN/Creatinine Ratio 10, Glucose Level 100, Calcium Level 8.5, Total Bilirubin 0.2, Aspartate Amino Transf (AST/ SGOT) 14, Alanine Aminotransferase (ALT/SGPT) 9, Alkaline Phosphatase 97, Total Protein 6.6, Albumin 3.5 Microbiology 07/29/17 Blood Culture - Preliminary, Resulted No growth Assessment/Plan Assessment/Plan Assess & Plan/Chief Complaint COPD with acute exacerbation. Pneumonia. Lung cancer. Seizure disorder. Patient in the right direction. Previous tobacco use recently stopped Clinical Quality Measures Admission Status Admission Dx 8 lower lobe pneumonia. Hypoxia. COPD with acute exacerbation. Lung cancer. Seizure disorder DVT/VTE Risk/Contraindication: Risk Factor Score Per Nursin RFS Level Per Nursing on Admit: 4+=Very High AMANDEEP GENAO DO July 31, 2017 07:49
[2017-07-31] MEDS: PHENYTOIN 100 MG (DILANTIN) CAP PO SCH ×3 (08:29→23:13)
[2017-07-31] MEDS: GABAPENTIN 600 MG (NEURONTIN) TAB PO SCH ×2 (08:29→14:31)
[2017-07-31] MEDS: amLODIPine 5 MG (NORVASC) TAB PO SCH (08:32)
[2017-07-31] MEDS: ENOXAPARIN 40 MG/0.4 ML (LOVENOX) SYR SC SCH (08:33)
--- NOTE | 2017-07-31 08:40 | Diagnostic Imaging Report ---
INDICATION: Pneumonia and COPD. Compared 07/30/2017 FINDINGS: COPD and chronic hyperexpansion of the lungs is noted. Lingular and right basilar opacities unchanged from the recent exam, however, reflect developments from more remote studies and are presumed infiltrates. Upper lobes clear. No effusion, pneumothorax, or failure pattern. IMPRESSION: Basilar infiltrates unchanged. Background COPD unchanged. No pneumothorax or pleural fluid. Dictated by: Dictated on workstation # [id number]
[2017-07-31 10:40] VITALS: BP 137/76
[2017-07-31 14:31] VITALS: BP 134/64
[2017-07-31] MEDS: NS IV 1000 ML 1,000 ML IV SCH (14:35)
[2017-07-31 16:20] VITALS: BP 164/72
[2017-07-31] MEDS: GABAPENTIN 300 MG (NEURONTIN) CAP PO SCH (23:13)
[2017-08-01 00:26] VITALS: BP 131/79
[2017-08-01] MEDS: RT-ALBUTEROL/IPRATROPIUM 3 ML (DUONEB) VIAL INH SCH ×3 (03:03→10:17)
[2017-08-01] MEDS: lisINopril 20 MG (PRINIVIL) TABLET PO SCH (03:35)
[2017-08-01] MEDS: lamoTRIgine 25 MG (LaMICtal) TAB PO SCH (03:35)
[2017-08-01] MEDS: ATORVASTATIN 10 MG (LIPITOR) TABLET PO SCH (03:35)
[2017-08-01] MEDS: carBAMazepine 200 MG (TEGretol) TAB PO SCH ×2 (03:35→08:30)
[2017-08-01] MEDS: PIPERACILLIN SODIUM/TAZOBACTAM 4.5 GM in NS (IVPB) 100 ML IV SCH (04:40)
[2017-08-01] MEDS: predniSONE 20 MG TAB PO SCH (05:54)
[2017-08-01] MEDS: rOPINIRole 0.25 MG (REQUIP) TAB PO SCH (05:54)
[2017-08-01 06:07] LABS: BASOPHILS % (AUTO) 0 % (0-10); EOSINOPHILS % (AUTO) 0 % (0-10); HEMATOCRIT 32 % (40-54); HEMOGLOBIN 10.2 G/DL (13.3-17.7); LYMPHOCYTES # (AUTO) 1.3 X 10^3 (1.0-4.0); LYMPHOCYTES % (AUTO) 17 % (12-44); MEAN CORPUSCULAR HEMOGLOBIN 29 PG (25-34); MEAN CORPUSCULAR HGB CONC 32 G/DL (32-36); MEAN CORPUSCULAR VOLUME 92 FL (80-99); MEAN PLATELET VOLUME 9.2 FL (7.4-10.4); MONOCYTES # (AUTO) 1.2 X 10^3 (0.0-1.0); MONOCYTES % (AUTO) 15 % (0-12); NEUTROPHILS # (AUTO) 5.3 X 10^3 (1.8-7.8); NEUTROPHILS % (AUTO) 68 % (42-75); PLATELET COUNT 236 10^3/uL (130-400); RED BLOOD COUNT 3.52 10^6/uL (4.35-5.85); RED CELL DISTRIBUTION WIDTH 14.9 % (10.0-14.5); WHITE BLOOD COUNT 7.9 10^3/uL (4.3-11.0)
[2017-08-01 06:21] LABS: BUN/CREATININE RATIO 9; CALCIUM 8.5 MG/DL (8.5-10.1); CARBON DIOXIDE 32 MMOL/L (21-32); CHLORIDE 97 MMOL/L (98-107); CREATININE SERUM 0.68 MG/DL (0.60-1.30); GFR ESTIMATED > 60; GLUCOSE 101 MG/DL (70-105); POTASSIUM 3.7 MMOL/L (3.6-5.0); SODIUM 139 MMOL/L (135-145)
--- NOTE | 2017-08-01 07:52 | Diagnostic Imaging Report ---
INDICATION: Pneumonia. Comparison made with prior examination 07/31/2017. FINDINGS: The heart size is normal. There is some venous congestion. There is bibasilar atelectasis and/or pneumonitis. There is no pleural effusion or pneumothorax. Mediastinum is unremarkable. [id number] catheter overlies right hemithorax. IMPRESSION: Bibasilar atelectasis and/or pneumonitis and some central pulmonary venous congestion. Dictated by: Dictated on workstation # [id number]
[2017-08-01 08:00] VITALS: BP 147/70
--- NOTE | 2017-08-01 08:10 | Progress Note (SOAP) ---
Subjective Time Seen by Provider: 08:05 Subjective/Events-last exam Patient feeling much better today. Patient walking around. Patient breathing good family. Patient wants to go home. Sent home patient on Omnicef 300 mg for 5 days Focused Exam Lactate Level 07/29/17 12:28: Lactic Acid Level 3.33*H 07/29/17 14:24: Lactic Acid Level 1.81 Objective Exam Vital Signs Date Time Temp Pulse Resp B/P (MAP) Pulse Ox O2 Delivery O2 Flow Rate FiO2 08/01/17 06:44 93 Nasal Cannula 4.00 08/01/17 03:05 93 Nasal Cannula 4.00 08/01/17 00:26 97.8 77 21 131/79 (96) 96 Nasal Cannula 4.00 07/31/17 22:35 95 Nasal Cannula 4.00 07/31/17 21:00 Nasal Cannula 4.00 07/31/17 18:24 94 Nasal Cannula 4.00 07/31/17 16:20 97.7 73 18 164/72 (102) 94 Nasal Cannula 4.00 07/31/17 14:41 94 Nasal Cannula 4.00 07/31/17 14:31 98.0 77 18 134/64 (87) 96 Nasal Cannula 0.05 07/31/17 11:20 93 Nasal Cannula 4.00 07/31/17 10:40 97.3 67 16 137/76 (96) 98 Nasal Cannula 0.05 07/31/17 09:00 Nasal Cannula 4.00 I & O 08/01/17 07:00 Intake Total 3240 ml Balance 3240 ml Capillary Refill : Less Than 3 Seconds General Appearance: No Apparent Distress, Thin HEENT: Normal ENT Inspection Neck: Full Range of Motion, Normal Inspection Respiratory: No Accessory Muscle Use, No Respiratory Distress, Decreased Breath Sounds Cardiovascular: Regular Rate, Rhythm Gastrointestinal: non tender, soft Results Lab Laboratory Tests 08/01/17 05:55: White Blood Count 7.9, Red Blood Count 3.52L, Hemoglobin 10.2L, Hematocrit 32L, Mean Corpuscular Volume 92, Mean Corpuscular Hemoglobin 29, Mean Corpuscular Hemoglobin Concent 32, Red Cell Distribution Width 14.9H, Platelet Count 236, Mean Platelet Volume 9.2, Neutrophils (%) (Auto) 68, Lymphocytes (%) (Auto) 17, Monocytes (%) (Auto) 15H, Eosinophils (%) (Auto) 0, Basophils (%) (Auto) 0, Neutrophils # (Auto) 5.3, Lymphocytes # (Auto) 1.3, Monocytes # (Auto) 1.2H, Eosinophils # (Auto) 0.0, Basophils # (Auto) 0.0, Sodium Level 139, Potassium Level 3.7, Chloride Level 97L, Carbon Dioxide Level 32, Anion Gap 10, Blood Urea Nitrogen 6L, Creatinine 0.68, Estimat Glomerular Filtration Rate > 60, BUN/ Creatinine Ratio 9, Glucose Level 101, Calcium Level 8.5 Microbiology 07/29/17 Blood Culture - Preliminary, Resulted No growth Assessment/Plan Assessment/Plan Assess & Plan/Chief Complaint COPD with acute exacerbation. Pneumonia. Lung cancer. Seizure disorder. Patient in the right direction. Previous tobacco use recently stopped. . 08/01/17. COPD with acute exacerbation. Pneumonia. Lung cancer. Seizure disorder. Patient feeling good and wants to go home. Patient to be sent home on [facility] Clinical Quality Measures Admission Status Admission Dx 8 lower lobe pneumonia. Hypoxia. COPD with acute exacerbation. Lung cancer. Seizure disorder DVT/VTE Risk/Contraindication: Risk Factor Score Per Nursin RFS Level Per Nursing on Admit: 4+=Very High AMANDEEP GENAO DO August 01, 2017 08:10
[2017-08-01] MEDS: PHENYTOIN 100 MG (DILANTIN) CAP PO SCH (08:29)
[2017-08-01] MEDS: GABAPENTIN 600 MG (NEURONTIN) TAB PO SCH (08:30)
[2017-08-01] MEDS: ENOXAPARIN 40 MG/0.4 ML (LOVENOX) SYR SC SCH (08:30)
[2017-08-01] MEDS: amLODIPine 5 MG (NORVASC) TAB PO SCH (08:30)
[2017-08-01] MEDS ORDERED: CEFDINIR 300 MG (OMNICEF) CAP PO SCH (09:00)
[2017-08-01] MEDS ORDERED: RPN.25T PO (12:10)
[2017-08-01] MEDS ORDERED: ATOR10TA66 PO (12:10)
[2017-08-01] MEDS ORDERED: CEFD300C3 PO (12:24)
--- NOTE | 2017-08-04 13:15 | Physician Query Clarification ---
PQ-Conflicting Diagnosis Admission/Discharge Admission Date: July 29, 2017 at 14:37 Discharge Date: August 01, 2017 at 13:31 The medical record reflects the following clinical scenario: History/Risk Factors: COPD, HYPOXIA Clinical Findings: AECOPD Treatment: ANTIBIOTICS, STEROIDS, OXYGEN Question: Do you agree with the impression of the acute on chronic respiratory failure with hypoxia per Dr. Bernal? Please document a response below. PHYSICIAN RESPONSE Do you agree w/Consulting Dx?: Yes In responding to this query, please exercise your independent professional judgment. The purpose of this communication is to more accurately reflect the complexity of your patients condition. The fact that a question is asked does not imply that any particular answer is desired or expected. Thank you for your timely response to this clarification. Requestors name: [ ] Phone # [ ] THIS PHYSICIAN QUERY FORM IS A PERMANENT PART OF THE MEDICAL RECORD CARRIE TRIMBLE August 04, 2017 13:15 AMANDEEP GENAO DO August 05, 2017 06:57
--- NOTE | 2017-08-06 08:26 | Discharge Summary ---
Diagnosis/Chief Complaint Date of Admission July 29, 2017 at 14:37 Date of Discharge August 01, 2017 at 13:31 Discharge Date: August 01, 2017 Discharge Time: 08:25 Discharge Diagnosis COPD with acute exacerbation. Pneumonia. Seizures area Lung cancer. Reason Hospital Visit Patient came to the office Friday short of breath. Patient has history of COPD. Patient has lung cancer. Patient to start chemotherapy. Patient came to the office yesterday feeling worse. Pulse ox with 4 L of nasal oxygen was 81. Patient sent out to the emergency room. Chest x-ray shows right lower lobe pneumonia. Patient admitted. Patient has a history of seizures. Lung cancer Discharge Summary Consultations Pulmonology Discharge Physical Examination Allergies: Coded Allergies: aspirin (Unverified Allergy, Mild, DOES NOT WORK WELL W/ OTHER MEDS, ) ibuprofen (Unverified Allergy, Mild, 08/05/17) Vitals & I&Os Vital Signs Date Time Temp Pulse Resp B/P (MAP) Pulse Ox O2 Delivery O2 Flow Rate FiO2 08/01/17 13:28 08/01/17 10:17 93 Nasal Cannula 4.00 08/01/17 08:00 97.4 87 22 Hospital Course Labs (last 24 hrs) Laboratory Tests 07/29/17 12:28: White Blood Count 10.0, Red Blood Count 3.67L, Hemoglobin 10.8L, Hematocrit 34L , Mean Corpuscular Volume 91, Mean Corpuscular Hemoglobin 29, Mean Corpuscular Hemoglobin Concent 32, Red Cell Distribution Width 14.8H, Platelet Count 205, Mean Platelet Volume 9.5, Neutrophils (%) (Auto) 91H, Lymphocytes (%) (Auto) 5L , Monocytes (%) (Auto) 4, Eosinophils (%) (Auto) 0, Basophils (%) (Auto) 0, Neutrophils # (Auto) 9.1H, Lymphocytes # (Auto) 0.5L, Monocytes # (Auto) 0.4, Eosinophils # (Auto) 0.0, Basophils # (Auto) 0.0, Neutrophils % (Manual) 96, Lymphocytes % (Manual) 2, Monocytes % (Manual) 1, Eosinophils % (Manual) 0, Basophils % (Manual) 0, Band Neutrophils 1, Blood Morphology Comment NORMAL, Sodium Level 134L, Potassium Level 4.2, Chloride Level 94L, Carbon Dioxide Level 29, Anion Gap 11, Blood Urea Nitrogen 12, Creatinine 0.77, Estimat Glomerular Filtration Rate > 60, BUN/Creatinine Ratio 16, Glucose Level 213H, Lactic Acid Level 3.33*H, Calcium Level 8.9, Total Bilirubin 0.3, Aspartate Amino Transf (AST/SGOT) 13, Alanine Aminotransferase (ALT/SGPT) 6, Alkaline Phosphatase 129, C-Reactive Protein High Sensitivity 5.90H, B-Type Natriuretic Peptide 187.7H, Total Protein 7.5, Albumin 3.9 07/29/17 14:24: Lactic Acid Level 1.81 07/30/17 05:20: White Blood Count 4.9, Red Blood Count 3.28L, Hemoglobin 9.6L, Hematocrit 30L, Mean Corpuscular Volume 92, Mean Corpuscular Hemoglobin 29, Mean Corpuscular Hemoglobin Concent 32, Red Cell Distribution Width 15.0H, Platelet Count 183, Mean Platelet Volume 9.1, Neutrophils (%) (Auto) 71, Lymphocytes (%) (Auto) 14, Monocytes (%) (Auto) 15H, Eosinophils (%) (Auto) 0, Basophils (%) (Auto) 0, Neutrophils # (Auto) 3.5, Lymphocytes # (Auto) 0.7L, Monocytes # (Auto) 0.7, Eosinophils # (Auto) 0.0, Basophils # (Auto) 0.0, Sodium Level 139, Potassium Level 4.1, Chloride Level 101, Carbon Dioxide Level 32, Anion Gap 6, Blood Urea Nitrogen 8, Creatinine 0.61, Estimat Glomerular Filtration Rate > 60, BUN/ Creatinine Ratio 13, Glucose Level 154H, Calcium Level 8.4L, Total Bilirubin 0.1 , Aspartate Amino Transf (AST/SGOT) 11, Alanine Aminotransferase (ALT/SGPT) < 6 , Alkaline Phosphatase 107, Total Protein 7.0, Albumin 3.6, Phenytoin (Dilantin ) Level 4.1L, Carbamazepine (Tegretol) Level 5.9 07/31/17 05:20: White Blood Count 6.1, Red Blood Count 3.42L, Hemoglobin 9.9L, Hematocrit 32L, Mean Corpuscular Volume 93, Mean Corpuscular Hemoglobin 29, Mean Corpuscular Hemoglobin Concent 31L, Red Cell Distribution Width 15.0H, Platelet Count 213, Mean Platelet Volume 9.4, Sodium Level 140, Potassium Level 3.8, Chloride Level 101, Carbon Dioxide Level 30, Anion Gap 9, Blood Urea Nitrogen 7, Creatinine 0.67, Estimat Glomerular Filtration Rate > 60, BUN/Creatinine Ratio 10, Glucose Level 100, Calcium Level 8.5, Total Bilirubin 0.2, Aspartate Amino Transf (AST/ SGOT) 14, Alanine Aminotransferase (ALT/SGPT) 9, Alkaline Phosphatase 97, Total Protein 6.6, Albumin 3.5 08/01/17 05:55: White Blood Count 7.9, Red Blood Count 3.52L, Hemoglobin 10.2L, Hematocrit 32L, Mean Corpuscular Volume 92, Mean Corpuscular Hemoglobin 29, Mean Corpuscular Hemoglobin Concent 32, Red Cell Distribution Width 14.9H, Platelet Count 236, Mean Platelet Volume 9.2, Neutrophils (%) (Auto) 68, Lymphocytes (%) (Auto) 17, Monocytes (%) (Auto) 15H, Eosinophils (%) (Auto) 0, Basophils (%) (Auto) 0, Neutrophils # (Auto) 5.3, Lymphocytes # (Auto) 1.3, Monocytes # (Auto) 1.2H, Eosinophils # (Auto) 0.0, Basophils # (Auto) 0.0, Sodium Level 139, Potassium Level 3.7, Chloride Level 97L, Carbon Dioxide Level 32, Anion Gap 10, Blood Urea Nitrogen 6L, Creatinine 0.68, Estimat Glomerular Filtration Rate > 60, BUN/ Creatinine Ratio 9, Glucose Level 101, Calcium Level 8.5 Microbiology 07/29/17 Blood Culture - Final, Complete No growth Laboratory Tests 07/29/17 12:28 07/30/17 05:20 07/31/17 05:20 08/01/17 05:55 Pending Labs Microbiology Date/Time Source Procedure Growth Status 07/29/17 14:24 Peripheral Rt Ac Blood Culture - Final No growth Complete 07/29/17 12:28 Port Not Otherwise Specified Blood Culture - Final No growth Complete Laboratory Tests 07/29/17 12:28: White Blood Count 10.0, Red Blood Count 3.67, Hemoglobin 10.8, Hematocrit 34, Mean Corpuscular Volume 91, Mean Corpuscular Hemoglobin 29, Mean Corpuscular Hemoglobin Concent 32, Red Cell Distribution Width 14.8, Platelet Count 205, Mean Platelet Volume 9.5, Neutrophils (%) (Auto) 91, Lymphocytes (%) (Auto) 5, Monocytes (%) (Auto) 4, Eosinophils (%) (Auto) 0, Basophils (%) (Auto) 0, Neutrophils # (Auto) 9.1, Lymphocytes # (Auto) 0.5, Monocytes # (Auto) 0.4, Eosinophils # (Auto) 0.0, Basophils # (Auto) 0.0, Neutrophils % (Manual) 96, Lymphocytes % (Manual) 2, Monocytes % (Manual) 1, Eosinophils % (Manual) 0, Basophils % (Manual) 0, Band Neutrophils 1, Blood Morphology Comment NORMAL, Sodium Level 134, Potassium Level 4.2, Chloride Level 94, Carbon Dioxide Level 29, Anion Gap 11, Blood Urea Nitrogen 12, Creatinine 0.77, Estimat Glomerular Filtration Rate > 60, BUN/Creatinine Ratio 16, Glucose Level 213, Lactic Acid Level 3.33, Calcium Level 8.9, Total Bilirubin 0.3, Aspartate Amino Transf (AST/ SGOT) 13, Alanine Aminotransferase (ALT/SGPT) 6, Alkaline Phosphatase 129, C- Reactive Protein High Sensitivity 5.90, B-Type Natriuretic Peptide 187.7, Total Protein 7.5, Albumin 3.9 07/29/17 14:24: Lactic Acid Level 1.81 07/30/17 05:20: White Blood Count 4.9, Red Blood Count 3.28, Hemoglobin 9.6, Hematocrit 30, Mean Corpuscular Volume 92, Mean Corpuscular Hemoglobin 29, Mean Corpuscular Hemoglobin Concent 32, Red Cell Distribution Width 15.0, Platelet Count 183, Mean Platelet Volume 9.1, Neutrophils (%) (Auto) 71, Lymphocytes (%) (Auto) 14, Monocytes (%) (Auto) 15, Eosinophils (%) (Auto) 0, Basophils (%) (Auto) 0, Neutrophils # (Auto) 3.5, Lymphocytes # (Auto) 0.7, Monocytes # (Auto) 0.7, Eosinophils # (Auto) 0.0, Basophils # (Auto) 0.0, Sodium Level 139, Potassium Level 4.1, Chloride Level 101, Carbon Dioxide Level 32, Anion Gap 6, Blood Urea Nitrogen 8, Creatinine 0.61, Estimat Glomerular Filtration Rate > 60, BUN/ Creatinine Ratio 13, Glucose Level 154, Calcium Level 8.4, Total Bilirubin 0.1, Aspartate Amino Transf (AST/SGOT) 11, Alanine Aminotransferase (ALT/SGPT) < 6, Alkaline Phosphatase 107, Total Protein 7.0, Albumin 3.6, Phenytoin (Dilantin) Level 4.1, Carbamazepine (Tegretol) Level 5.9 07/31/17 05:20: White Blood Count 6.1, Red Blood Count 3.42, Hemoglobin 9.9, Hematocrit 32, Mean Corpuscular Volume 93, Mean Corpuscular Hemoglobin 29, Mean Corpuscular Hemoglobin Concent 31, Red Cell Distribution Width 15.0, Platelet Count 213, Mean Platelet Volume 9.4, Sodium Level 140, Potassium Level 3.8, Chloride Level 101, Carbon Dioxide Level 30, Anion Gap 9, Blood Urea Nitrogen 7, Creatinine 0.67, Estimat Glomerular Filtration Rate > 60, BUN/Creatinine Ratio 10, Glucose Level 100, Calcium Level 8.5, Total Bilirubin 0.2, Aspartate Amino Transf (AST/ SGOT) 14, Alanine Aminotransferase (ALT/SGPT) 9, Alkaline Phosphatase 97, Total Protein 6.6, Albumin 3.5 08/01/17 05:55: White Blood Count 7.9, Red Blood Count 3.52, Hemoglobin 10.2, Hematocrit 32, Mean Corpuscular Volume 92, Mean Corpuscular Hemoglobin 29, Mean Corpuscular Hemoglobin Concent 32, Red Cell Distribution Width 14.9, Platelet Count 236, Mean Platelet Volume 9.2, Neutrophils (%) (Auto) 68, Lymphocytes (%) (Auto) 17, Monocytes (%) (Auto) 15, Eosinophils (%) (Auto) 0, Basophils (%) (Auto) 0, Neutrophils # (Auto) 5.3, Lymphocytes # (Auto) 1.3, Monocytes # (Auto) 1.2, Eosinophils # (Auto) 0.0, Basophils # (Auto) 0.0, Sodium Level 139, Potassium Level 3.7, Chloride Level 97, Carbon Dioxide Level 32, Anion Gap 10, Blood Urea Nitrogen 6, Creatinine 0.68, Estimat Glomerular Filtration Rate > 60, BUN/ Creatinine Ratio 9, Glucose Level 101, Calcium Level 8.5 Discussion & Recommendations Patient feeling good. Patient wants to go home. Patient not having any problems with his breathing Discharge Home Medications: Active Scripts Active Reported Ropinirole HCl 0.25 Mg Tablet 0.25 Mg PO Q8H Cefdinir 300 Mg Capsule 300 Mg PO BID FILLED 08/03/17 #20 FOR A 10 DAY THERAPY Atorvastatin Calcium 20 Mg Tablet 20 Mg PO 0300 Dexamethasone 4 Mg Tablet PO UD TAKE 3 (4MG) TABLETS DAY BEFORE AND MORNING OF CHEMO Carbamazepine 200 Mg Tablet 400 Mg PO 1500 TAKES 2 (200 MG) TABLETS Amlodipine Besylate 5 Mg Tablet 5 Mg PO DAILY Lamotrigine 25 Mg Tablet 25 Mg PO 1500,0300 Lisinopril 20 Mg Tablet 20 Mg PO 0300 Proair Hfa (Albuterol Sulfate) 1 Puff Puff 2 Puff IH Q6H PRN 1 PUFF = 90 MCG Spiriva (Tiotropium [place]) 1 Inh Aerp 1 Cap IH DAILY Albuterol Sulfate 2.5 Mg/3 Ml Vial.neb 2.5 Mg NEB 5XD PRN Tegretol (Carbamazepine) 200 Mg Tablet 200 Mg PO 0800,2300,0300 Phenytoin Sodium Extended 100 Mg Capsule 100 Mg PO 0800,2300 Phenytoin Sodium Extended 100 Mg Capsule 200 Mg PO 1500 TAKES 2 (100 MG) CAPSULES Gabapentin 600 Mg Tablet 600 Mg PO 0800,1500 Gabapentin 300 Mg Capsule 300 Mg PO 2300 Lamotrigine 100 Mg Tablet 100 Mg PO 1500,2300 Instructions to patient/family Please see electronic discharge instructions given to patient. Clinical Quality Measures DVT/VTE Risk/Contraindication: Risk Factor Score Per Nursin RFS Level Per Nursing on Admit: 4+=Very High AMANDEEP GENAO DO August 06, 2017 08:26
== END 2017-08-01 13:31 | disposition home or self-care (01) | DRG 189 ==
LOC: EDUNIT# 12:13 → ER 12:16 → 4TH 14:37
PROVIDERS: ADMIT Family Medicine; ATTEND Family Medicine
DX: J96.21 Acute and chronic respiratory failure with hypoxia (principal); J44.1 Chronic obstructive pulmonary disease with (acute) exacerbation; J44.0 Chronic obstructive pulmonary disease with (acute) lower respiratory infection; J18.9 Pneumonia, unspecified organism; C34.90 Malignant neoplasm of unspecified part of unspecified bronchus or lung; G47.30 Sleep apnea, unspecified; G14 Postpolio syndrome; G40.909 Epilepsy, unspecified, not intractable, without status epilepticus; E78.00 Pure hypercholesterolemia, unspecified; I10 Essential (primary) hypertension; Z87.891 Personal history of nicotine dependence
CPT/HCPCS: 36415; 71045; 71046; 80048; 80053; 80156; 80185; 83605; 83880; 85007; 85025; 85027; 86141; 87040; 94640; 94760; 96365; 96375

== ENCOUNTER 2017-08-05 10:10 | Emergency (ER) | payer MEDICAID ==
[~2017-08-05] VITALS: Ht 185.4 cm; Wt 72.6 kg
[~2017-08-05 10:10] MED LIST changes: +DEXA4TAB PO; +RPN.25T PO
--- OUTSIDE RECORDS SUMMARY | 2017-08-05 10:16 | XMS REPORT | Clinical Summary ---
Author Author [facility] Organization [facility] Address Unknown Phone Unavailable Care Team Providers Care Special Programs Director Name Role Phone Efra Valentino MD Unavailable Source Comments Some departments are not documenting in the electronic medical record. If you do not see the information that you expected, contact Release of Information in the Health Information Management department at [phone] for further assistance in locating additional records.[facility] Allergies Active Allergy Reactions Severity Noted [...] 16 Active Problems Problem Noted Date Seizures ([facility]) 10/22/2013 Hemiparesis ([facility]) 10/22/2013 Asthma 10/22/2013 COPD (chronic obstructive pulmonary disease) ([facility]) 10/22/2013 Hyperlipidemia 10/22/2013 Weight loss 10/22/2013 Family [...]
[2017-08-05] MEDS ORDERED: RT-ALBUTEROL SULF 2.5 MG/3 ML PRE-MIX VIAL INH STA (10:21)
[2017-08-05] MEDS ORDERED: methylPREDNISolone 125 MG (Solu-MEDROL) VIAL IV STA (10:21)
[2017-08-05 10:33] LABS: BASOPHILS % (AUTO) 0 % (0-10); EOSINOPHILS % (AUTO) 0 % (0-10); HEMATOCRIT 33 % (40-54); HEMOGLOBIN 10.3 G/DL (13.3-17.7); LYMPHOCYTES # (AUTO) 0.8 X 10^3 (1.0-4.0); LYMPHOCYTES % (AUTO) 9 % (12-44); MEAN CORPUSCULAR HEMOGLOBIN 29 PG (25-34); MEAN CORPUSCULAR HGB CONC 31 G/DL (32-36); MEAN CORPUSCULAR VOLUME 94 FL (80-99); MONOCYTES % (AUTO) 12 % (0-12); NEUTROPHILS % (AUTO) 79 % (42-75); PLATELET COUNT 238 10^3/uL (130-400); RED BLOOD COUNT 3.54 10^6/uL (4.35-5.85); RED CELL DISTRIBUTION WIDTH 15.2 % (10.0-14.5); WHITE BLOOD COUNT 8.9 10^3/uL (4.3-11.0)
[2017-08-05 10:36] LABS: ABG BASE EXCESS 6.4 MMOL/L (-2.5-2.5); ABG OXYGEN SATURATION 99 % (94-100); ABG PCO2 65 MMHG (35-45); ABG PO2 146 MMHG (79-93); ABG TCO2 34.3 MMOL/L (21.0-31.0)
[2017-08-05 10:38] LABS: ABG PH 7.32 (7.37-7.43); ALLENS TEST YES-POS; INSPIRED O2 5L; PATIENT TEMP 98.3; VENTILATOR NO
[2017-08-05 10:51] LABS: PROTHROMBIN TIME PATIENT 13.4 SEC (12.2-14.7)
--- NOTE | 2017-08-05 10:51 | Diagnostic Imaging Report ---
INDICATION: History of pneumonia. COMPARISON: 08/01/2017 FINDINGS: Single frontal radiographic view of the chest was obtained and demonstrates interval development of prominent interstitial opacities greatest within the bilateral mid and lower lung lo. There is no large effusion or pneumothorax. Cardiac silhouette and pulmonary vasculature within normal limits. Right-sided Port-A-Cath is noted and is in stable position. Bony structures show no gross acute abnormalities. IMPRESSION: 1. Interval progression of interstitial infiltrate or edema within the bilateral mid and lower lung lo. Dictated by: Dictated on workstation # [id number]
[2017-08-05 10:55] LABS: ALANINE AMINOTRANSFERASE 7 U/L (0-55); ALKALINE PHOSPHATASE 128 U/L (40-136); BILIRUBIN,TOTAL 0.2 MG/DL (0.1-1.0); BUN/CREATININE RATIO 22; CALCIUM 8.6 MG/DL (8.5-10.1); CARBON DIOXIDE 32 MMOL/L (21-32); CHLORIDE 100 MMOL/L (98-107); CREATININE SERUM 0.63 MG/DL (0.60-1.30); GFR ESTIMATED > 60; GLUCOSE 111 MG/DL (70-105); POTASSIUM 5.3 MMOL/L (3.6-5.0); SODIUM 136 MMOL/L (135-145); TOTAL PROTEIN 7.6 GM/DL (6.4-8.2)
--- NOTE | 2017-08-05 10:57 | ED Respiratory ---
General Chief Complaint: Respiratory Problems Stated Complaint: SOB Nursing Triage Note: PATIENT HERE FOR SOB. RECENTLY DIAGNOSED WITH PNEUMONIA. RECEIVED BREATHING TX IN ROUTE BY EMS. HE HAS A PRODUCTIVE COUGH AND IS USING ACCESSORY MUSCLES TO BREATHE. PLACED ON 5L O2 AND O2 SAT UP TO 98% Source: patient Exam Limitations: no limitations History of Present Illness Date Seen by Provider: August 05, 2017 Time Seen by Provider: 10:10 Initial Comments Here by EMS with respiratory distress. Patient on DuoNeb currently with good O2 saturations. Patient recently discharged from the hospital for admission for pneumonia. Patient was not able to get his antibiotics due to insurance problems but had a similar type home and took those for a day. He is supposed to follow-up in cancer Center on with Dr. Cardoza for further evaluation of the new small lung mass that he has as well as mass to the hip. Denies nausea, vomiting, fever, chills but does admit to shortness of breath and some weakness intermittently. Not Currently on steroids. Timing/Duration: this afternoon Severity: moderate Prior Episodes/Possible Cause: frequent episodes Modifying Factors: Worse With Activity; Improves With Albuterol Nebulizer; Worse With Coughing; Improves With Oxygen, Improves With Rest Associated Symptoms: No chest pain/soreness; cough; No fever/chills, No muscle aches, No nasal congestion; shortness of breath, wheezing Allergies and Home Medications Allergies Coded Allergies: aspirin (Unverified Allergy, Mild, DOES NOT WORK WELL W/ OTHER MEDS, ) ibuprofen (Unverified Allergy, Mild, 08/10/15) Home Medications Albuterol Sulfate 2.5 Mg/3 Ml Vial.neb, 2.5 MG NEB 5XD PRN for SHORTNESS OF BREATH, (Reported) Albuterol Sulfate 1 Puff Puff, 2 PUFF IH Q6H PRN for SHORTNESS OF BREATH, ( Reported) 1 PUFF = 90 MCG Amlodipine Besylate 5 Mg Tablet, 5 MG PO DAILY, (Reported) Atorvastatin Calcium 10 Mg Tablet, 20 MG PO 0300 Prescribed by: TONY HOFFMAN on 08/01/17 1210 Carbamazepine 200 Mg Tablet, 200 MG PO 0800,2300,0300, (Reported) Carbamazepine 200 Mg Tablet, 400 MG PO 1500, (Reported) TAKES 2 (200 MG) TABLETS Cefdinir 300 Mg Capsule, 300 MG PO BID Prescribed by: TONY HOFFMAN on 08/01/17 1224 Dexamethasone 4 Mg Tablet, PO UD, (Reported) TAKE 3 (4MG) TABLETS DAY BEFORE AND MORNING OF CHEMO Gabapentin 300 Mg Capsule, 300 MG PO 2300, (Reported) Gabapentin 600 Mg Tablet, 600 MG PO 0800,1500, (Reported) Lamotrigine 100 Mg Tablet, 100 MG PO 1500,2300, (Reported) Lamotrigine 25 Mg Tablet, 25 MG PO 1500,0300, (Reported) Lisinopril 20 Mg Tablet, 20 MG PO 0300, (Reported) Phenytoin Sodium Extended 100 Mg Capsule, 200 MG PO 1500, (Reported) TAKES 2 (100 MG) CAPSULES Phenytoin Sodium Extended 100 Mg Capsule, 100 MG PO 0800,2300, (Reported) Ropinirole HCl 0.25 Mg Tab, 0.25 MG PO Q8HR Prescribed by: TONY HOFFMAN on 08/01/17 1210 Tiotropium Krebs 1 Inh Aerp, 1 CAP IH DAILY, (Reported) Patient Home Medication List Home Medication List Reviewed: Yes Review of Systems Constitutional: see HPI; No chills, No fever EENTM: no symptoms reported Respiratory: see HPI Cardiovascular: no symptoms reported; No chest pain, No edema Gastrointestinal: No abdominal pain, No nausea, No vomiting Genitourinary: no symptoms reported Musculoskeletal: no symptoms reported Skin: no symptoms reported All Other Systems Reviewed Negative Unless Noted: Yes Past Vyemjse-Jbgsfb-Xmbwir Hx Past Med/Social Hx: Reviewed Nursing Past Med/Soc Hx Patient Social History Alcohol Use: Denies Use Recreational Drug Use: Yes (not current, 15 years ago-ETOH and PO drugs) Smoking Status: Former Smoker Type Used: Cigarettes Former Smoker, Quit: Jan 29, 2017 2nd Hand Smoke Exposure: No Recent Foreign Travel: No Contact w/Someone Who Travel: No Recent Infectious Disease Expo: No Recent Hopitalizations: Yes Physical Abuse: No Sexual Abuse: No Immunizations Up To Date Tetanus Booster (TDap): Unknown PED Vaccines UTD: Yes Seasonal Allergies Seasonal Allergies: Yes Past Medical History Surgeries: Yes Gallbladder Respiratory: Yes (lung cancer) Asthma, Sleep Apnea, COPD Currently Using CPAP: No Currently Using BIPAP: Yes Cardiac: Yes High Cholesterol, Hypertension Neurological: Yes (post polio syndrome with left-sided deficits) Seizure Disorder Reproductive Disorders: No Sexually Transmitted Disease: No HIV/AIDS: No Genitourinary: No Gastrointestinal: No Musculoskeletal: Yes Arthritis Endocrine: No HEENT: No Loss of Vision: Denies Hearing Impairment: Denies Cancer: No Psychosocial: No Nursing Suicide Risk Score: 0 Integumentary: No Blood Disorders: No Adverse Reaction/Blood Tranf: No Family Medical History Reviewed Nursing Family Hx Hypercholesterolemia 19 FATHER Hypertension 19 FATHER No Pertinent Family Hx, Heart Disease Physical Exam Vital Signs Vital Signs - First Documented 08/05/17 10:12 Temp 98.3 Pulse 80 Resp 28 B/P (MAP) 198/94 (128) Pulse Ox 99 O2 Delivery Simple Mask O2 Flow Rate 5.00 Capillary Refill : Less Than 3 Seconds General Appearance: WD/WN, no apparent distress HEENT: PERRL/EOMI, pharynx normal Neck: full range of motion, supple Respiratory: decreased breath sounds, wheezing, expiration Cardiovascular: regular rate, rhythm, no murmur Gastrointestinal: non tender, soft Extremities: non-tender, normal inspection Neurologic/Psychiatric: alert, oriented x 3 Skin: normal color, warm/dry Focused Exam Lactate Level 08/05/17 10:20: Lactic Acid Level 0.61 Lactic Acid Level Laboratory Tests Test 08/05/17 10:20 Lactic Acid Level 0.61 MMOL/L (0.50-2.00) Procedures/Interventions Date of ETT Placement: Mar 09, 2017 Time of ETT Placement: 1811 Suture Size: 5-0 Progress/Results/Core Measures Suspected Sepsis Recent Fever Within 48 Hours: No Infection Criteria Present: Suspected New Infection New/Unexplained Altered Menta: No Sepsis Screen: No Definite Risk SIRS Temperature:98.3 Pulse: 69 Respiratory Rate: 28 Laboratory Tests 08/05/17 10:20: White Blood Count 8.9 Blood Pressure 158 /89 Mean: 112 08/05/17 10:20: Lactic Acid Level 0.61 Laboratory Tests 08/05/17 10:20: Creatinine 0.63, INR Comment 1.0, Platelet Count 238, Total Bilirubin 0.2 Results/Orders Lab Results Laboratory Tests Test 08/05/17 10:20 08/05/17 10:28 08/05/17 12:30 Range/Units White Blood Count 8.9 4.3-11.0 10^3/uL Red Blood Count 3.54 L 4.35-5.85 10^6/uL Hemoglobin 10.3 L 13.3-17.7 G/DL Hematocrit 33 L 40-54 % Mean Corpuscular Volume 94 80-99 FL Mean Corpuscular Hemoglobin 29 25-34 PG Mean Corpuscular Hemoglobin Concent 31 L 32-36 G/DL Red Cell Distribution Width 15.2 H 10.0-14.5 % Platelet Count 238 130-400 10^3/uL Mean Platelet Volume 9.0 7.4-10.4 FL Neutrophils (%) (Auto) 79 H 42-75 % Lymphocytes (%) (Auto) 9 L 12-44 % Monocytes (%) (Auto) 12 0-12 % Eosinophils (%) (Auto) 0 0-10 % Basophils (%) (Auto) 0 0-10 % Neutrophils # (Auto) 7.0 1.8-7.8 X 10^3 Lymphocytes # (Auto) 0.8 L 1.0-4.0 X 10^3 Monocytes # (Auto) 1.0 0.0-1.0 X 10^3 Eosinophils # (Auto) 0.0 0.0-0.3 10^3/uL Basophils # (Auto) 0.0 0.0-0.1 10^3/uL Prothrombin Time 13.4 12.2-14.7 SEC INR Comment 1.0 0.8-1.4 Activated Partial Thromboplast Time 38 H 24-35 SEC Sodium Level 136 135-145 MMOL/L Potassium Level 5.3 H 3.6-5.0 MMOL/L Chloride Level 100 98-107 MMOL/L Carbon Dioxide Level 32 21-32 MMOL/L Anion Gap 4 L 5-14 MMOL/L Blood Urea Nitrogen 14 7-18 MG/DL Creatinine 0.63 0.60-1.30 MG/DL Estimat Glomerular Filtration Rate > 60 BUN/Creatinine Ratio 22 Glucose Level 111 H 70-105 MG/DL Lactic Acid Level 0.61 0.50-2.00 MMOL/L Calcium Level 8.6 8.5-10.1 MG/DL Total Bilirubin 0.2 0.1-1.0 MG/DL Aspartate Amino Transf (AST/SGOT) 12 5-34 U/L Alanine Aminotransferase (ALT/SGPT) 7 0-55 U/L Alkaline Phosphatase 128 40-136 U/L Total Protein 7.6 6.4-8.2 GM/DL Albumin 4.0 3.2-4.5 GM/DL Blood Gas Puncture Site RT BRACH Blood Gas Patient Temperature 98.3 Arterial Blood pH 7.32 *L 7.37-7.43 Arterial Blood Partial Pressure CO2 65 H 35-45 MMHG Arterial Blood Partial Pressure O2 146 H 79-93 MMHG Arterial Blood HCO3 32 H 23-27 MMOL/L Arterial Blood Total CO2 34.3 H 21.0-31.0 MMOL/L Arterial Blood Oxygen Saturation 99 94-100 % Arterial Blood Base Excess 6.4 H -2.5-2.5 MMOL/L Johan Test YES-POS Blood Gas Ventilator Setting NO Blood Gas Inspired Oxygen 5L Urine Color YELLOW Urine Clarity CLEAR Urine pH 7 5-9 Urine Specific [place] 1.005 L 1.016-1.022 Urine Protein NEGATIVE NEGATIVE Urine Glucose (UA) NEGATIVE NEGATIVE Urine Ketones NEGATIVE NEGATIVE Urine Nitrite NEGATIVE NEGATIVE Urine Bilirubin NEGATIVE NEGATIVE Urine Urobilinogen NORMAL NORMAL MG/DL Urine Leukocyte Esterase NEGATIVE NEGATIVE Urine RBC (Auto) NEGATIVE NEGATIVE Urine RBC NONE /HPF Urine WBC NONE /HPF Urine Squamous Epithelial Cells 2-5 /HPF Urine Crystals NONE /LPF Urine Bacteria NEGATIVE /HPF Urine Casts NONE /LPF Urine Mucus NEGATIVE /LPF Urine Culture Indicated NO My Orders Orders - VANESSA GUTHRIE MD Cbc With Automated Diff (08/05/17 10:16) Comprehensive Metabolic Panel (08/05/17 10:16) Lactic Acid Analyzer (08/05/17 10:16) Blood Culture (08/05/17 10:16) Sputum Culture (08/05/17 10:16) Ua Culture If Indicated (08/05/17 10:16) Protime With Inr (08/05/17 10:16) Partial Thromboplastin Time (08/05/17 10:16) Chest 1 View, Ap/Pa Only (08/05/17 10:16) O2 (08/05/17 10:16) Saline Lock/Iv-Start (08/05/17 10:16) Vital Signs Adult Sepsis Patie Q1H (08/05/17 10:16) Remove Rings In Anticipation O (08/05/17 10:16) Arterial Blood Gas (08/05/17 10:28) Methylprednisolone Sod Succ (Solu-Medrol (08/05/17 10:21) Albuterol Pre-Mix Nebs (Rt) (Proventil (08/05/17 10:21) Svn Small Volume Nebulizer (08/05/17 10:21) Ct Angio Chest W (08/05/17 11:14) Iohexol Injection (Omnipaque 350 Mg/Ml 1 (08/05/17 11:30) Ns (Ivpb) (Sodium Chloride 0.9%) (08/05/17 11:30) Ns Iv 500 Ml (Sodium Chloride 0.9%) (08/05/17 12:45) Ns Iv 500 Ml (Sodium Chloride 0.9%) (08/05/17 12:42) Arterial Blood Draw (08/05/17 ) Ceftriaxone Injection (Rocephin Injectio (08/05/17 14:15) Prednisone Tablet (Deltasone Tablet) (08/05/17 14:15) Ropinirole Tablet (Requip Tablet) (08/05/17 14:15) Medications Given in ED Current Medications Medications Dose Ordered Sig/Porfirio Route Start Time Stop Time Status Last Admin Dose Admin Ceftriaxone Sodium 1000 mg/ Sodium Chloride 100 ml @ 200 mls/hr ONCE ONCE IV 08/05/17 14:15 08/05/17 14:44 DC 08/05/17 14:19 200 MLS/HR Iohexol 125 ml ONCE ONCE IV 08/05/17 11:30 08/05/17 11:31 DC 08/05/17 12:14 125 ML Prednisone 40 mg ONCE ONCE PO 08/05/17 14:15 08/05/17 14:16 DC 08/05/17 14:18 40 MG Ropinirole HCl 0.25 mg ONCE ONCE PO 08/05/17 14:15 08/05/17 14:16 DC 08/05/17 14:18 0.25 MG Sodium Chloride 250 ml ONCE ONCE IV 08/05/17 11:30 08/05/17 11:31 DC 08/05/17 12:14 80 ML Sodium Chloride 500 ml @ ud STK-MED ONCE .ROUTE 08/05/17 12:42 08/05/17 12:48 DC 08/05/17 12:45 0 MLS/HR Vital Signs/I&O 08/05/17 08/05/17 08/05/17 10:12 10:12 10:49 Temp 98.3 98.3 Pulse 80 69 Resp 28 28 B/P (MAP) 198/94 (128) 158/89 Pulse Ox 99 99 98 O2 Delivery Simple Mask Nasal Cannula O2 Flow Rate 5.00 5.00 Capillary Refill : Less Than 3 Seconds Blood Pressure Mean: 112 Progress Note : Progress Note Seen and evaluated. Albuterol treatment 3 ordered. Solu-Medrol 125 mg IV ordered. Labs, chest x-ray, blood cultures and lactic acid ordered. CT chest angiogram ordered due to concerns about possible PE given his recent history of cancer and acute onset of respiratory distress. Normal saline 500 ml bolus ordered. Monitor patient. 1350: Patient is improved and remains improved. 1440: Rocephin 1 g IV given as patient has been out of his antibiotic. We will give IV dose to cover next 24 hours. Prednisone 40 mg by mouth given. Propranolol 0.25 mg by mouth given for her restless leg. I did discuss the case with Dr. Genao. At this point, patient meets discharge criteria and he will be discharged home. He will continue prednisone for the next 3 days outpatient. He will follow-up with Dr. Genao tomorrow at [address] Cardoza on for cancer center evaluation. Discharged home with return precautions. Patient and family verbalize understanding instructions and agreement with plan. Diagnostic Imaging Diagonstic Imaging: Xray Plain Films/CT/US/NM/MRI: chest Comments VIA [facility]. [place], [place] NAME: CR QUIJANO [facility] REC#: [id number] PT STATUS: REG ER : 1955 PHYSICIAN: VANESSA GUTHRIE MD ADMIT DATE: 08/05/17/ER Draft Date of Exam:08/05/17 CHEST 1 VIEW, AP/PA ONLY INDICATION: History of pneumonia. COMPARISON: 08/01/2017 FINDINGS: Single frontal radiographic view of the chest was obtained and demonstrates interval development of prominent interstitial opacities greatest within the bilateral mid and lower lung lo. There is no large effusion or pneumothorax. Cardiac silhouette and pulmonary vasculature within normal limits. Right-sided Port-A-Cath is noted and is in stable position. Bony structures show no gross acute abnormalities. IMPRESSION: 1. Interval progression of interstitial infiltrate or edema within the bilateral mid and lower lung lo. Dictated on workstation # [id number] Dict: 08/05/17 1046 Trans: 08/05/17 1051 ELIOT [id number] Interpreted by: IJEOMA KAHN MD Electronically signed by: Diagonstic Imaging: CT Plain Films/CT/US/NM/MRI: chest Comments VIA [facility]. [place], [place] NAME: CR QUIJANO [facility] REC#: [id number] PT STATUS: REG ER : 1955 PHYSICIAN: VANESSA GUTHRIE MD ADMIT DATE: 08/05/17/ER Draft Date of Exam:08/05/17 CT ANGIO CHEST W PROCEDURE: CT angiography of the chest with contrast. TECHNIQUE: Multiple contiguous axial images were obtained through the chest after uneventful bolus administration of intravenous contrast. Reconstructed CTA MIP acquisitions were also performed. INDICATION: Dyspnea and recent pneumonia. Comparison is made to study of 07/03/2017. There is good opacification of pulmonary arteries without intraluminal filling defect identified. There is atherosclerotic calcification at the root of the aorta and along the aortic arch. Thoracic aorta is otherwise unremarkable without acute abnormality. There does appear to be direct origin of the left border from the aortic arch. There is no evidence of significant pleural pericardial fluid. Extensive centrilobular emphysema seen throughout the lungs, bilaterally with an upper lobe predominance. 1.4 cm spiculated mass in the left upper lobe is not significantly changed. There is mild increase in subpleural density in the lung bases which is likely related to edema and pneumonitis. There is probable prominent lymphoid tissue in the hilar regions as well. IMPRESSION: No CTA evidence of acute pulmonary embolism. There is extensive background centrilobular emphysema with highly suspicious 1.3 cm left upper lobe pulmonary mass which is suggestive of neoplasm. Increasing basilar pulmonary markings are most suggestive of pneumonitis and clinical correlation is recommended. Note is made of advanced degenerative change in the shoulder girdles. Dictated on workstation # [id number] Dict: 08/05/17 1230 Trans: 08/05/17 1242 AIG [id number] Interpreted by: AUSTEN SUE MD Electronically signed by: Departure Impression Primary Impression: COPD exacerbation Additional Impression: Hypoxia Disposition: 01 HOME, SELF-CARE Condition: Improved Departure-Patient Inst. Decision time for Depature: 15:04 Referrals: AMANDEEP GENAO DO (PCP/Family) Primary Care Physician Patient Instructions: Chronic Bronchitis (DC) Add. Discharge Instructions: All discharge instructions reviewed with patient and/or family. Voiced understanding. Follow-up with Dr. Genao tomorrow. You should take prednisone 40 mg daily for the next couple of days unless otherwise instructed differently by Dr. Genao. Use your albuterol nebulizer treatments every 4 hours for the next few days and then every 4 hours as needed. Use your CPAP while sleeping. Return for worse pain, fever, vomiting, weakness, breathing problems or other concerns as needed. VANESSA GUTHRIE MD August 05, 2017 10:57
[2017-08-05] MEDS ORDERED: NS 250 ML (IVPB) BAG IV ONE (11:30)
[2017-08-05] MEDS ORDERED: IOHEXOL 350 MG/ML 150 ML (OMNIPAQUE 350) VIAL IV ONE (11:30)
[2017-08-05 12:36] LABS: BILIRUBIN,URINE NEGATIVE (NEGATIVE); CLARITY,URINE CLEAR; COLOR,URINE YELLOW; GLUCOSE, URINE (UA) NEGATIVE (NEGATIVE); KETONES,URINE NEGATIVE (NEGATIVE); LEUKOCYTE ESTERASE ,URINE NEGATIVE (NEGATIVE); NITRITE,URINE NEGATIVE (NEGATIVE); PH,URINE 7 (5-9); PROTEIN,URINE NEGATIVE (NEGATIVE); UROBILINOGEN,URINE NORMAL (NORMAL)
[2017-08-05] MEDS ORDERED: NS IV 500 ML 500 ML ONE (12:42)
--- NOTE | 2017-08-05 12:43 | Diagnostic Imaging Report ---
PROCEDURE: CT angiography of the chest with contrast. TECHNIQUE: Multiple contiguous axial images were obtained through the chest after uneventful bolus administration of intravenous contrast. Reconstructed CTA MIP acquisitions were also performed. INDICATION: Dyspnea and recent pneumonia. Comparison is made to study of 07/03/2017. There is good opacification of pulmonary arteries without intraluminal filling defect identified. There is atherosclerotic calcification at the root of the aorta and along the aortic arch. Thoracic aorta is otherwise unremarkable without acute abnormality. There does appear to be direct origin of the left border from the aortic arch. There is no evidence of significant pleural pericardial fluid. Extensive centrilobular emphysema seen throughout the lungs, bilaterally with an upper lobe predominance. 1.4 cm spiculated mass in the left upper lobe is not significantly changed. There is mild increase in subpleural density in the lung bases which is likely related to edema and pneumonitis. There is probable prominent lymphoid tissue in the hilar regions as well. IMPRESSION: No CTA evidence of acute pulmonary embolism. There is extensive background centrilobular emphysema with highly suspicious 1.3 cm left upper lobe pulmonary mass which is suggestive of neoplasm. Increasing basilar pulmonary markings are most suggestive of pneumonitis and clinical correlation is recommended. Note is made of advanced degenerative change in the shoulder girdles. Dictated by: Dictated on workstation # [id number]
[2017-08-05] MEDS ORDERED: NS IV 500 ML 500 ML IV SCH (12:45)
[2017-08-05 12:48] LABS: BACTERIA,URINE NEGATIVE /HPF
[2017-08-05] MEDS ORDERED: rOPINIRole 0.25 MG (REQUIP) TAB PO ONE (14:15)
[2017-08-05] MEDS ORDERED: cefTRIAXone INJECTION 1,000 MG in NS (IVPB) 100 ML IV ONE (14:15)
[2017-08-05] MEDS ORDERED: predniSONE 20 MG TAB PO ONE (14:15)
[2017-08-05 15:07] VITALS: BP 158/89
[2017-08-05] MEDS ORDERED: ATOR20TA66 PO (17:24)
[2017-08-05] MEDS ORDERED: CEFD300C3 PO (17:24)
[2017-08-05] MEDS ORDERED: ROPI0.25 PO (17:24)
[2017-08-07] MEDS ORDERED: CEFD300C3 PO (11:44)
[2017-08-07] MEDS ORDERED: PRD10T PO (11:47)
== END 2017-08-05 15:17 | disposition home or self-care (01) ==
LOC: EDUNIT# 10:10 → ER 10:11
DX: J44.1 Chronic obstructive pulmonary disease with (acute) exacerbation (principal); G47.30 Sleep apnea, unspecified; E78.00 Pure hypercholesterolemia, unspecified; I10 Essential (primary) hypertension; G40.909 Epilepsy, unspecified, not intractable, without status epilepticus; Z82.49 Family history of ischemic heart disease and other diseases of the circulatory system; Z79.51 Long term (current) use of inhaled steroids; Z87.01 Personal history of pneumonia (recurrent); Z88.8 Allergy status to other drugs, medicaments and biological substances; Z88.6 Allergy status to analgesic agent; Z87.891 Personal history of nicotine dependence
CPT/HCPCS: 36415; 36600; 71045; 71275; 80053; 81000; 82805; 83605; 85025; 85610; 85730; 87040; 87070; 87077; 87186; 87205; 96361; 96365; 96375

== ENCOUNTER 2017-08-05 15:56 | Inpatient (IN) | payer MEDICAID ==
[~2017-08-05] VITALS: Ht 185.4 cm; Wt 73.3 kg
--- OUTSIDE RECORDS SUMMARY | 2017-08-05 16:01 | XMS REPORT | Clinical Summary ---
Author Author [facility] Organization [facility] Address Unknown Phone Unavailable Care Team Providers Care Guest Room Attendant Name Role Phone Efra Valentino MD Unavailable Source Comments Some departments are not documenting in the electronic medical record. If you do not see the information that you expected, contact Release of Information in the Health Information Management department at [phone] for further assistance in locating additional records.[facility] Allergies Active Allergy Reactions Severity [...] Problems Problem Noted Date Seizures ([facility]) 10/22/2013 Hemiparesis ([facility]) 10/22/2013 Asthma 10/22/2013 COPD (chronic obstructive pulmonary disease) ([facility]) 10/22/2013 Hyperlipidemia 10/22/2013 Weight loss [...]
[2017-08-05] MEDS ORDERED: cefTRIAXone 1 GM/NS 100 ML IVPB IV SCH ×2 (16:16)
[2017-08-05 17:00] VITALS: BP 162/74
[2017-08-05] MEDS ORDERED: CEFD300C3 PO (17:24)
[2017-08-05] MEDS ORDERED: ATOR20TA66 PO (17:24)
[2017-08-05] MEDS ORDERED: ROPI0.25 PO (17:24)
[2017-08-05] MEDS: methylPREDNISolone 125 MG (Solu-MEDROL) VIAL IVP SCH ×2 (17:41→23:39)
--- NOTE | 2017-08-05 19:15 | History & Physicial ---
History of Present Illness History of Present Illness Reason for visit/HPI Patient was recently in hospital. Patient discharged and doing good. Patient this morning at 11 a.m. was can ahead to my office and suddenly short of breath and couldn't breathe. Patient has a history of COPD with acute exacerbation area Pneumonia. Lung cancer. Patient in emergency room did well. Patient sent home. When patient got to the car he became short of breath again and direct admit Date of Admission August 05, 2017 at 3:56 pm Time Seen by Provider: 19:00 I consulted on this patient on 08/05/17 19:10 Attending Physician Micky Genao DO Admitting Physician Micky Genao DO Consult Allergies and Home Medications Allergies Coded Allergies: aspirin (Unverified Allergy, Mild, DOES NOT WORK WELL W/ OTHER MEDS, ) ibuprofen (Unverified Allergy, Mild, 08/05/17) Home Medications Albuterol Sulfate 2.5 Mg/3 Ml Vial.neb, 2.5 MG NEB 5XD PRN for SHORTNESS OF BREATH, (Reported) Albuterol Sulfate 1 Puff Puff, 2 PUFF IH Q6H PRN for SHORTNESS OF BREATH, ( Reported) 1 PUFF = 90 MCG Amlodipine Besylate 5 Mg Tablet, 5 MG PO DAILY, (Reported) Atorvastatin Calcium 20 Mg Tablet, 20 MG PO 0300, (Reported) Carbamazepine 200 Mg Tablet, 200 MG PO 0800,2300,0300, (Reported) Carbamazepine 200 Mg Tablet, 400 MG PO 1500, (Reported) TAKES 2 (200 MG) TABLETS Cefdinir 300 Mg Capsule, 300 MG PO BID, (Reported) FILLED 08/03/17 #20 FOR A 10 DAY THERAPY Dexamethasone 4 Mg Tablet, PO UD, (Reported) TAKE 3 (4MG) TABLETS DAY BEFORE AND MORNING OF CHEMO Gabapentin 300 Mg Capsule, 300 MG PO 2300, (Reported) Gabapentin 600 Mg Tablet, 600 MG PO 0800,1500, (Reported) Lamotrigine 100 Mg Tablet, 100 MG PO 1500,2300, (Reported) Lamotrigine 25 Mg Tablet, 25 MG PO 1500,0300, (Reported) Lisinopril 20 Mg Tablet, 20 MG PO 0300, (Reported) Phenytoin Sodium Extended 100 Mg Capsule, 200 MG PO 1500, (Reported) TAKES 2 (100 MG) CAPSULES Phenytoin Sodium Extended 100 Mg Capsule, 100 MG PO 0800,2300, (Reported) Ropinirole HCl 0.25 Mg Tablet, 0.25 MG PO Q8H, (Reported) Tiotropium [place] 1 Inh Aerp, 1 CAP IH DAILY, (Reported) Patient Home Medication List Home Medication List Reviewed: Yes Past Ixornyk-Apizow-Ubjtws Hx Patient Social History Marrital Status: Employed/Student: unemployed Smoking Status: Former Smoker Former Smoker, Quit: Jan 29, 2017 Type Used: Cigarettes 2nd Hand Smoke Exposure: No Recent Foreign Travel: No Contact w/other who traveled: No Recent Hopitalizations: Yes Recent Infectious Disease Expo: No Immunizations Up To Date Tetanus Booster (TDap): Unknown Pediatric: Yes Seasonal Allergies Seasonal Allergies: Yes Surgeries Yes Gallbladder Respiratory Yes (lung cancer) COPD, Emphysema, Pneumonia Currently Using CPAP: No Currently Using BIPAP: Yes Cardiovascular Yes High Cholesterol, Hypertension 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) Seizure Disorder Reproductive System Hx Reproductive Disorders: No Sexually Transmitted Disease: No HIV/AIDS: No Genitourinary No Gastrointestinal No Musculoskeletal Yes Arthritis Endocrine History of Endocrine Disorders: No HEENT History of HEENT Disorders: No Loss of Vision: Denies Hearing Impairment: Denies Cancer No Psychosocial History of Psychiatric Problem: No Integumentary History of Skin or Integumenta: No Blood Transfusions History of Blood Disorders: No Adverse Reaction to a Blood Tr: No Family Medical History Significant Family History: No Pertinent Family Hx, Heart Disease Family Hx: Hypercholesterolemia 19 FATHER Hypertension 19 FATHER Constitutional: weakness EENTM: no symptoms reported Respiratory: dyspnea on exertion, short of breath, other (COPD, lung cancer) Cardiovascular: no symptoms reported Gastrointestinal: no symptoms reported Genitourinary: no symptoms reported Physical Exam Vital Signs Vital Signs - First Documented 08/05/17 17:00 Temp 99.5 Pulse 86 Resp 16 B/P (MAP) 162/74 (103) Pulse Ox 92 O2 Delivery Nasal Cannula O2 Flow Rate 5.00 Capillary Refill : General Appearance: No Apparent Distress, Thin Eyes: Bilateral Eye Normal Inspection HEENT: Normal ENT Inspection Neck: Full Range of Motion, Normal Inspection Respiratory: Decreased Breath Sounds, Wheezing Cardiovascular: Regular Rate, Rhythm Gastrointestinal: Non Tender, Soft Assessment/Plan Assessment and Plan COPD with acute exacerbation. Lung cancer. Pneumonitis. Admission Diagnosis Admission Status: Inpatient Order (span 2 midnights) Reason for Inpatient Admission: Short of breath. COPD with acute exacerbation. Lung cancer. History of pneumonitis MICKY GENAO DO August 05, 2017 7:15 pm
[2017-08-05 19:41] VITALS: BP 162/74
[2017-08-05] MEDS ORDERED: RT-ALBUTEROL SULF 2.5 MG/3 ML PRE-MIX VIAL IH PRN ×2 (19:45)
[2017-08-05 20:00] VITALS: BP 169/83
[2017-08-05] MEDS: PHENYTOIN 100 MG (DILANTIN) CAP PO SCH (21:08)
[2017-08-05] MEDS: carBAMazepine 200 MG (TEGretol) TAB PO SCH (21:09)
[2017-08-05] MEDS: rOPINIRole 0.25 MG (REQUIP) TAB PO SCH (21:09)
[2017-08-05] MEDS: GABAPENTIN 300 MG (NEURONTIN) CAP PO SCH (21:09)
[2017-08-05] MEDS: RT-ALBUTEROL/IPRATROPIUM 3 ML (DUONEB) VIAL INH SCH (21:10)
[2017-08-06] VITALS: BP 174/83
[2017-08-06] MEDS: RT-ALBUTEROL/IPRATROPIUM 3 ML (DUONEB) VIAL INH SCH ×6 (01:27→21:41)
[2017-08-06] MEDS: lamoTRIgine 25 MG (LaMICtal) TAB PO SCH ×2 (03:00→15:57)
[2017-08-06] MEDS: ATORVASTATIN 20 MG (LIPITOR) TABLET PO SCH (03:00)
[2017-08-06] MEDS: carBAMazepine 200 MG (TEGretol) TAB PO SCH ×3 (03:00→22:38)
[2017-08-06] MEDS: lisINopril 20 MG (PRINIVIL) TABLET PO SCH (03:00)
[2017-08-06 04:00] VITALS: BP 169/87
[2017-08-06] MEDS: methylPREDNISolone 125 MG (Solu-MEDROL) VIAL IVP SCH (04:56)
[2017-08-06] MEDS: rOPINIRole 0.25 MG (REQUIP) TAB PO SCH ×3 (04:56→19:35)
[2017-08-06 06:10] LABS: BASOPHILS % (AUTO) 0 % (0-10); EOSINOPHILS % (AUTO) 0 % (0-10); HEMATOCRIT 33 % (40-54); HEMOGLOBIN 10.3 G/DL (13.3-17.7); LYMPHOCYTES # (AUTO) 0.6 X 10^3 (1.0-4.0); LYMPHOCYTES % (AUTO) 9 % (12-44); MEAN CORPUSCULAR HEMOGLOBIN 29 PG (25-34); MEAN CORPUSCULAR HGB CONC 32 G/DL (32-36); MEAN CORPUSCULAR VOLUME 91 FL (80-99); MEAN PLATELET VOLUME 9.3 FL (7.4-10.4); MONOCYTES # (AUTO) 0.6 X 10^3 (0.0-1.0); MONOCYTES % (AUTO) 9 % (0-12); NEUTROPHILS % (AUTO) 81 % (42-75); PLATELET COUNT 233 10^3/uL (130-400); RED BLOOD COUNT 3.58 10^6/uL (4.35-5.85); RED CELL DISTRIBUTION WIDTH 14.6 % (10.0-14.5); WHITE BLOOD COUNT 6.1 10^3/uL (4.3-11.0)
[2017-08-06] MEDS: UMECLIDINIUM BROMIDE (INCRUSE ELLIPTA) 7'S IH SCH (06:35)
[2017-08-06 06:39] LABS: ALANINE AMINOTRANSFERASE < 6 U/L (0-55); ALBUMIN 3.8 GM/DL (3.2-4.5); ALKALINE PHOSPHATASE 117 U/L (40-136); BILIRUBIN,TOTAL 0.2 MG/DL (0.1-1.0); BUN/CREATININE RATIO 15; CARBON DIOXIDE 29 MMOL/L (21-32); CHLORIDE 99 MMOL/L (98-107); CREATININE SERUM 0.62 MG/DL (0.60-1.30); GFR ESTIMATED > 60; GLUCOSE 112 MG/DL (70-105); POTASSIUM 4.6 MMOL/L (3.6-5.0); SODIUM 137 MMOL/L (135-145)
--- NOTE | 2017-08-06 06:42 | Pulmonary Consultation ---
History of Present Illness History of Present Illness Date of Consultation 08/06/17 06:37 Time Seen by Provider: 06:37 Date of Admission History of Present Illness 62yo with recent dx of metastatic adenocarcinoma, COPD, and hospitalization presented to ED from Dr. Genao's office secondary to worsening SOB that was sudden onset. Pt was initially discharged from ED however became more SOB once he ambulated to his car. Pt was then admitted to 4th floor. Allergies and Home Medications Allergies Coded Allergies: aspirin (Unverified Allergy, Mild, DOES NOT WORK WELL W/ OTHER MEDS, ) ibuprofen (Unverified Allergy, Mild, 08/05/17) Home Medications Albuterol Sulfate 2.5 Mg/3 Ml Vial.neb, 2.5 MG NEB 5XD PRN for SHORTNESS OF BREATH, (Reported) Albuterol Sulfate 1 Puff Puff, 2 PUFF IH Q6H PRN for SHORTNESS OF BREATH, ( Reported) 1 PUFF = 90 MCG Amlodipine Besylate 5 Mg Tablet, 5 MG PO DAILY, (Reported) Atorvastatin Calcium 20 Mg Tablet, 20 MG PO 0300, (Reported) Carbamazepine 200 Mg Tablet, 200 MG PO 0800,2300,0300, (Reported) Carbamazepine 200 Mg Tablet, 400 MG PO 1500, (Reported) TAKES 2 (200 MG) TABLETS Cefdinir 300 Mg Capsule, 300 MG PO BID FILLED 08/03/17 #20 FOR A 10 DAY THERAPY Prescribed by: AMANDEEP GENAO on 08/07/17 1144 Dexamethasone 4 Mg Tablet, PO UD, (Reported) TAKE 3 (4MG) TABLETS THE NIGHT BEFORE AND MORNING OF CHEMO Gabapentin 300 Mg Capsule, 300 MG PO 2300, (Reported) Gabapentin 600 Mg Tablet, 600 MG PO 0800,1500, (Reported) Lamotrigine 100 Mg Tablet, 100 MG PO 1500,2300, (Reported) Lamotrigine 25 Mg Tablet, 25 MG PO 1500,0300, (Reported) Lisinopril 20 Mg Tablet, 20 MG PO 0300, (Reported) Phenytoin Sodium Extended 100 Mg Capsule, 200 MG PO 1500, (Reported) TAKES 2 (100 MG) CAPSULES Phenytoin Sodium Extended 100 Mg Capsule, 100 MG PO 0800,2300, (Reported) Prednisone 10 Mg Tab, 60 MG PO DAILY@1200 Take 5 tabs(50mg)daily, decrease by 1 tab(10mg) every other day. Prescribed by: AMANDEEP GENAO on 08/07/17 1147 Ropinirole HCl 0.25 Mg Tablet, 0.25 MG PO Q8H, (Reported) Tiotropium [place] 1 Inh Aerp, 1 CAP IH DAILY, (Reported) Past Ciboqsc-Fqhlto-Sjgoge Hx Patient Social History Smoking Status: Former Smoker Type Used: Cigarettes Former Smoker, Quit: Jan 29, 2017 2nd Hand Smoke Exposure: No Recent Foreign Travel: No Contact w/Someone Who Travel: No Recent Infectious Disease Expo: No Recent Hopitalizations: Yes Immunizations Up To Date Tetanus Booster (TDap): Unknown PED Vaccines UTD: Yes Seasonal Allergies Seasonal Allergies: Yes Past Medical History Surgeries: Yes Gallbladder Respiratory: Yes (lung cancer) Asthma, Sleep Apnea, COPD Currently Using CPAP: No Currently Using BIPAP: Yes Cardiac: Yes High Cholesterol, Hypertension Neurological: Yes (post polio syndrome with left-sided deficits) Seizure Disorder Reproductive Disorders: No Sexually Transmitted Disease: No HIV/AIDS: No Genitourinary: No Gastrointestinal: No Musculoskeletal: Yes Arthritis Endocrine: No HEENT: No Loss of Vision: Denies Hearing Impairment: Denies Cancer: Yes Lung Psychosocial: No Integumentary: No Blood Disorders: No Adverse Reaction/Blood Tranf: No Family Medical History Hypercholesterolemia 19 FATHER Hypertension 19 FATHER No Pertinent Family Hx, Heart Disease Review of Systems Time Seen by Provider: 07:53 Exam Exam Vital Signs Date Time Temp Pulse Resp B/P (MAP) Pulse Ox O2 Delivery O2 Flow Rate FiO2 08/06/17 06:35 96 Nasal Cannula 5.00 08/06/17 04:00 98.5 74 18 169/87 (114) 96 Nasal Cannula 5.00 08/06/17 01:27 96 Nasal Cannula 5.00 08/06/17 00:00 98.0 71 21 174/83 (113) 91 Nasal Cannula 5.00 08/05/17 21:10 94 Nasal Cannula 5.00 08/05/17 21:00 Nasal Cannula 5.00 08/05/17 20:00 98.3 78 18 169/83 (111) 92 Nasal Cannula 5.00 08/05/17 19:41 86 92 08/05/17 17:00 99.5 86 16 162/74 (103) 92 Nasal Cannula 5.00 I & O 08/06/17 07:00 Intake Total 1000 ml Balance 1000 ml General Appearance: No Apparent Distress, Thin HEENT: Normal ENT Inspection Neck: Full Range of Motion, Normal Inspection Respiratory: Decreased Breath Sounds, Wheezing Cardiovascular: Regular Rate, Rhythm Results Lab Laboratory Tests 08/06/17 05:58 Assessment/Plan Assessment/Plan Acute on chronic respiratory failure Severe COPD oxygen dependent with AE -SVNs, Oxygen -BiPAP PRN -SOlumedrol - change to prednisone Pna -Continue Rocephin for now Metastatic lung cancer -Follows with oncology Hx of seizures I will see pt in office next . RN to make appt. 255 RANI PACHECO DO August 06, 2017 06:42
--- NOTE | 2017-08-06 07:34 | Progress Note (SOAP) ---
Subjective Time Seen by Provider: 07:30 Subjective/Events-last exam Patient feels better today. Patient states he's not ready to go home. When patient was discharged from the hospital a few days ago patient did not have the money so could not get his medicine. Patient is on Medicaid and his spin down has not been met.. Patient not feeling comfortable with his breathing Objective Exam Vital Signs Date Time Temp Pulse Resp B/P (MAP) Pulse Ox O2 Delivery O2 Flow Rate FiO2 08/06/17 06:35 96 Nasal Cannula 5.00 08/06/17 04:00 98.5 74 18 169/87 (114) 96 Nasal Cannula 5.00 08/06/17 01:27 96 Nasal Cannula 5.00 08/06/17 00:00 98.0 71 21 174/83 (113) 91 Nasal Cannula 5.00 08/05/17 21:10 94 Nasal Cannula 5.00 08/05/17 21:00 Nasal Cannula 5.00 08/05/17 20:00 98.3 78 18 169/83 (111) 92 Nasal Cannula 5.00 08/05/17 19:41 86 92 08/05/17 17:00 99.5 86 16 162/74 (103) 92 Nasal Cannula 5.00 I & O 08/06/17 07:00 Intake Total 1000 ml Balance 1000 ml Capillary Refill : General Appearance: No Apparent Distress, Thin HEENT: Normal ENT Inspection Neck: Normal Inspection Respiratory: No Accessory Muscle Use, No Respiratory Distress, Decreased Breath Sounds Cardiovascular: Regular Rate, Rhythm, No Murmur Gastrointestinal: non tender, soft Results Lab Laboratory Tests 08/06/17 05:58: White Blood Count 6.1, Red Blood Count 3.58L, Hemoglobin 10.3L, Hematocrit 33L, Mean Corpuscular Volume 91, Mean Corpuscular Hemoglobin 29, Mean Corpuscular Hemoglobin Concent 32, Red Cell Distribution Width 14.6H, Platelet Count 233, Mean Platelet Volume 9.3, Neutrophils (%) (Auto) 81H, Lymphocytes (%) (Auto) 9L , Monocytes (%) (Auto) 9, Eosinophils (%) (Auto) 0, Basophils (%) (Auto) 0, Neutrophils # (Auto) 5.0, Lymphocytes # (Auto) 0.6L, Monocytes # (Auto) 0.6, Eosinophils # (Auto) 0.0, Basophils # (Auto) 0.0, Sodium Level 137, Potassium Level 4.6, Chloride Level 99, Carbon Dioxide Level 29, Anion Gap 9, Blood Urea Nitrogen 9, Creatinine 0.62, Estimat Glomerular Filtration Rate > 60, BUN/ Creatinine Ratio 15, Glucose Level 112H, Calcium Level 9.0, Total Bilirubin 0.2 , Aspartate Amino Transf (AST/SGOT) 9, Alanine Aminotransferase (ALT/SGPT) < 6, Alkaline Phosphatase 117, Total Protein 7.0, Albumin 3.8 Assessment/Plan Assessment/Plan Assess & Plan/Chief Complaint COPD with acute exacerbation. History of pneumonia. Lung cancer. History of seizure. Patient does not have money to get his medicines Clinical Quality Measures Admission Status Admission Dx COPD with acute exacerbation. Lung cancer. Pneumonitis. DVT/VTE Risk/Contraindication: Risk Factor Score Per Nursin RFS Level Per Nursing on Admit: 4+=Very High AMANDEEP GENAO DO August 06, 2017 07:34
[2017-08-06 08:00] VITALS: BP 162/74
[2017-08-06] MEDS: PHENYTOIN 100 MG (DILANTIN) CAP PO SCH ×2 (08:01→22:38)
[2017-08-06] MEDS: amLODIPine 5 MG (NORVASC) TAB PO SCH (08:01)
[2017-08-06] MEDS: ENOXAPARIN 40 MG/0.4 ML (LOVENOX) SYR SC SCH (08:01)
[2017-08-06] MEDS: GABAPENTIN 600 MG (NEURONTIN) TAB PO SCH ×2 (08:01→15:57)
[2017-08-06] MEDS: predniSONE 10 MG TAB PO SCH (11:06)
[2017-08-06 12:36] VITALS: BP 163/81
[2017-08-06] MEDS ORDERED: cefTRIAXone 1 GM/NS 100 ML IVPB IV SCH ×2 (14:00)
[2017-08-06] MEDS ORDERED: PHENYTOIN 100 MG (DILANTIN) CAP PO SCH (15:00)
[2017-08-06] MEDS ORDERED: carBAMazepine 200 MG (TEGretol) TAB PO SCH (15:00)
[2017-08-06 16:00] VITALS: BP 163/78
[2017-08-06 20:00] VITALS: BP 130/64
[2017-08-06] MEDS: GABAPENTIN 300 MG (NEURONTIN) CAP PO SCH (22:38)
[2017-08-07 00:04] VITALS: BP 140/65
[2017-08-07] MEDS: RT-ALBUTEROL/IPRATROPIUM 3 ML (DUONEB) VIAL INH SCH ×3 (01:53→10:03)
[2017-08-07] MEDS: lisINopril 20 MG (PRINIVIL) TABLET PO SCH (03:02)
[2017-08-07] MEDS: lamoTRIgine 25 MG (LaMICtal) TAB PO SCH (03:02)
[2017-08-07] MEDS: carBAMazepine 200 MG (TEGretol) TAB PO SCH ×2 (03:02→08:10)
[2017-08-07] MEDS: ATORVASTATIN 20 MG (LIPITOR) TABLET PO SCH (03:03)
[2017-08-07] MEDS: rOPINIRole 0.25 MG (REQUIP) TAB PO SCH ×2 (03:03→12:30)
[2017-08-07 04:03] VITALS: BP 136/63
--- NOTE | 2017-08-07 05:42 | Pulmonary Progress Note ---
Subjective Time Seen by Provider: 05:44 Subjective/Events-last exam Pt is feeling improved and wants to go home today. Exam Exam Vital Signs Date Time Temp Pulse Resp B/P (MAP) Pulse Ox O2 Delivery O2 Flow Rate FiO2 08/07/17 01:55 Nasal Cannula 5.00 08/07/17 00:04 98.6 68 18 140/65 (90) 99 Nasal Cannula 5.00 08/06/17 21:41 98 Nasal Cannula 5.00 08/06/17 21:00 Nasal Cannula 5.00 08/06/17 20:00 98.9 67 24 130/64 (86) 95 Nasal Cannula 5.00 08/06/17 18:51 95 Nasal Cannula 5.00 08/06/17 16:00 98.7 69 22 163/78 (106) 98 Nasal Cannula 5.00 08/06/17 14:28 96 Nasal Cannula 5.00 08/06/17 12:36 99.0 64 20 163/81 (108) 98 Nasal Cannula 5.00 08/06/17 10:48 95 Nasal Cannula 5.00 08/06/17 09:00 Nasal Cannula 5.00 08/06/17 08:00 99.1 69 18 162/74 (103) 93 Nasal Cannula 5.00 08/06/17 06:35 96 Nasal Cannula 5.00 I & O 08/07/17 07:00 Intake Total 1280 ml Output Total 250 ml Balance 1030 ml General Appearance: No Apparent Distress, Thin HEENT: Normal ENT Inspection Neck: Normal Inspection Respiratory: No Accessory Muscle Use, No Respiratory Distress, Decreased Breath Sounds Cardiovascular: Regular Rate, Rhythm, No Murmur Gastrointestinal: non tender, soft Extremity: Normal Capillary Refill, Normal Inspection Neurologic/Psychiatric: Alert, Oriented x3 Skin: Normal Color, Warm/Dry Lymphatic: No Adenopathy Results Lab Laboratory Tests 08/06/17 05:58 Assessment/Plan Assessment/Plan Acute on chronic respiratory failure Severe COPD oxygen dependent with AE C02 on 08/05/17 was 65 - -pt already has home vent to mask however has not been compliant with usage. -SVNs, Oxygen -Noninvasive ventilation - prednisone Pna -Continue Rocephin for now Metastatic lung cancer -Follows with oncology Hx of seizures Pt is ok from pulmonary standpoint for discharge. I will f/u with him in my office in 2wks. 232 RANI PACHECO DO August 07, 2017 05:42
[2017-08-07 05:55] LABS: HEMOGLOBIN 10.6 G/DL (13.3-17.7); MEAN PLATELET VOLUME 9.1 FL (7.4-10.4); RED BLOOD COUNT 3.62 10^6/uL (4.35-5.85); RED CELL DISTRIBUTION WIDTH 15.3 % (10.0-14.5); WHITE BLOOD COUNT 5.2 10^3/uL (4.3-11.0)
[2017-08-07 06:22] LABS: BUN/CREATININE RATIO 17; CALCIUM 8.8 MG/DL (8.5-10.1); CARBON DIOXIDE 31 MMOL/L (21-32); CHLORIDE 101 MMOL/L (98-107); GFR ESTIMATED > 60; GLUCOSE 87 MG/DL (70-105); POTASSIUM 4.1 MMOL/L (3.6-5.0); SODIUM 140 MMOL/L (135-145)
[2017-08-07] MEDS: UMECLIDINIUM BROMIDE (INCRUSE ELLIPTA) 7'S IH SCH (06:23)
--- NOTE | 2017-08-07 07:36 | Progress Note (SOAP) ---
Subjective Time Seen by Provider: 07:25 Subjective/Events-last exam Patient feeling good today and wants to go home. Last time patient went home he did not have the money because he was and spend down and could not get his medicine area Pharmacy to work it out with patient so he can have his medicine. Patient needs appointment with Dr. Cardoza to start his chemotherapy for lung cancer COPD with acute exacerbation Objective Exam Vital Signs Date Time Temp Pulse Resp B/P (MAP) Pulse Ox O2 Delivery O2 Flow Rate FiO2 08/07/17 06:25 96 Nasal Cannula 5.00 08/07/17 04:03 98.0 62 19 136/63 (87) 97 Nasal Cannula 5.00 08/07/17 01:55 Nasal Cannula 5.00 08/07/17 00:04 98.6 68 18 140/65 (90) 99 Nasal Cannula 5.00 08/06/17 21:41 98 Nasal Cannula 5.00 08/06/17 21:00 Nasal Cannula 5.00 08/06/17 20:00 98.9 67 24 130/64 (86) 95 Nasal Cannula 5.00 08/06/17 18:51 95 Nasal Cannula 5.00 08/06/17 16:00 98.7 69 22 163/78 (106) 98 Nasal Cannula 5.00 08/06/17 14:28 96 Nasal Cannula 5.00 08/06/17 12:36 99.0 64 20 163/81 (108) 98 Nasal Cannula 5.00 08/06/17 10:48 95 Nasal Cannula 5.00 08/06/17 09:00 Nasal Cannula 5.00 08/06/17 08:00 99.1 69 18 162/74 (103) 93 Nasal Cannula 5.00 I & O 08/07/17 07:00 Intake Total 2130 ml Output Total 250 ml Balance 1880 ml Capillary Refill : General Appearance: No Apparent Distress, Thin HEENT: Normal ENT Inspection Neck: Full Range of Motion, Non Tender Respiratory: Chest Non Tender, No Accessory Muscle Use, No Respiratory Distress Cardiovascular: Regular Rate, Rhythm, No Murmur Gastrointestinal: non tender Results Lab Laboratory Tests 08/07/17 05:37: White Blood Count 5.2, Red Blood Count 3.62L, Hemoglobin 10.6L, Hematocrit 33L, Mean Corpuscular Volume 92, Mean Corpuscular Hemoglobin 29, Mean Corpuscular Hemoglobin Concent 32, Red Cell Distribution Width 15.3H, Platelet Count 267, Mean Platelet Volume 9.1, Sodium Level 140, Potassium Level 4.1, Chloride Level 101, Carbon Dioxide Level 31, Anion Gap 8, Blood Urea Nitrogen 12, Creatinine 0.70, Estimat Glomerular Filtration Rate > 60, BUN/Creatinine Ratio 17, Glucose Level 87, Calcium Level 8.8 Assessment/Plan Assessment/Plan Assess & Plan/Chief Complaint COPD with acute exacerbation. History of pneumonia. Lung cancer. History of seizure. Patient does not have money to get his medicines. . 08/07/17. COPD with acute exacerbation. Pneumonia. Lung cancer. History of seizure. Patient wants to go home today. Patient okay with me to go home. Pharmacy to make sure patient gets medicine and check his spin down. Patient get in touch with oncology to start his chemotherapy for. Lung cancer Clinical Quality Measures Admission Status Admission Dx COPD with acute exacerbation. Lung cancer. Pneumonitis. DVT/VTE Risk/Contraindication: Risk Factor Score Per Nursin RFS Level Per Nursing on Admit: 4+=Very High AMANDEEP GENAO DO August 07, 2017 07:36
[2017-08-07] MEDS: amLODIPine 5 MG (NORVASC) TAB PO SCH (08:09)
[2017-08-07] MEDS: GABAPENTIN 600 MG (NEURONTIN) TAB PO SCH (08:09)
[2017-08-07] MEDS: PHENYTOIN 100 MG (DILANTIN) CAP PO SCH (08:09)
[2017-08-07] MEDS: ENOXAPARIN 40 MG/0.4 ML (LOVENOX) SYR SC SCH (08:10)
--- NOTE | 2017-08-07 08:35 | Diagnostic Imaging Report ---
Indication: Shortness breath Portable chest 5:49 AM There is infiltrate present at the right medial lung base. Right IJ Port-A-Cath tip projects over the SVC. There are no effusions or pneumothoraces. Impression: Right medial basal infiltrate appears slightly more dense than on the previous days comparison exam. Dictated by: Dictated on workstation # [id number]
[2017-08-07 08:51] VITALS: BP 170/82
[2017-08-07] MEDS ORDERED: CEFD300C3 PO (11:44)
[2017-08-07] MEDS ORDERED: PRD10T PO (11:47)
[2017-08-07] MEDS: predniSONE 10 MG TAB PO SCH (12:30)
[2017-08-07] MEDS ORDERED: cefTRIAXone 1 GM/NS 50 ML IVPB IV SCH ×2 (14:00)
--- NOTE | 2017-08-08 08:38 | Discharge Summary ---
Diagnosis/Chief Complaint Date of Admission August 05, 2017 at 15:56 Date of Discharge August 07, 2017 at 12:55 Discharge Date: August 07, 2017 Discharge Time: 08:35 Discharge Diagnosis COPD with acute exacerbation. Metastatic lung cancer. Adenocarcinoma. Pneumonia. Seizure. Reason Hospital Visit Patient was recently in hospital. Patient discharged and doing good. Patient this morning at 11 a.m. was can ahead to my office and suddenly short of breath and couldn't breathe. Patient has a history of COPD with acute exacerbation area Pneumonia. Lung cancer. Patient in emergency room did well. Patient sent home. When patient got to the car he became short of breath again and direct admit Discharge Summary Consultations Pulmonology Discharge Physical Examination Allergies: Coded Allergies: aspirin (Unverified Allergy, Mild, DOES NOT WORK WELL W/ OTHER MEDS, ) ibuprofen (Unverified Allergy, Mild, 08/05/17) Vitals & I&Os Vital Signs Date Time Temp Pulse Resp B/P (MAP) Pulse Ox O2 Delivery O2 Flow Rate FiO2 08/07/17 12:55 08/07/17 10:04 98 Nasal Cannula 5.00 08/07/17 08:51 96.9 62 20 Hospital Course Patient hospital did improve. Patient felt normal and wants to go back home Patient discharged Labs (last 24 hrs) Laboratory Tests 08/06/17 05:58: White Blood Count 6.1, Red Blood Count 3.58L, Hemoglobin 10.3L, Hematocrit 33L, Mean Corpuscular Volume 91, Mean Corpuscular Hemoglobin 29, Mean Corpuscular Hemoglobin Concent 32, Red Cell Distribution Width 14.6H, Platelet Count 233, Mean Platelet Volume 9.3, Neutrophils (%) (Auto) 81H, Lymphocytes (%) (Auto) 9L , Monocytes (%) (Auto) 9, Eosinophils (%) (Auto) 0, Basophils (%) (Auto) 0, Neutrophils # (Auto) 5.0, Lymphocytes # (Auto) 0.6L, Monocytes # (Auto) 0.6, Eosinophils # (Auto) 0.0, Basophils # (Auto) 0.0, Sodium Level 137, Potassium Level 4.6, Chloride Level 99, Carbon Dioxide Level 29, Anion Gap 9, Blood Urea Nitrogen 9, Creatinine 0.62, Estimat Glomerular Filtration Rate > 60, BUN/ Creatinine Ratio 15, Glucose Level 112H, Calcium Level 9.0, Total Bilirubin 0.2 , Aspartate Amino Transf (AST/SGOT) 9, Alanine Aminotransferase (ALT/SGPT) < 6, Alkaline Phosphatase 117, Total Protein 7.0, Albumin 3.8 08/07/17 05:37: White Blood Count 5.2, Red Blood Count 3.62L, Hemoglobin 10.6L, Hematocrit 33L, Mean Corpuscular Volume 92, Mean Corpuscular Hemoglobin 29, Mean Corpuscular Hemoglobin Concent 32, Red Cell Distribution Width 15.3H, Platelet Count 267, Mean Platelet Volume 9.1, Sodium Level 140, Potassium Level 4.1, Chloride Level 101, Carbon Dioxide Level 31, Anion Gap 8, Blood Urea Nitrogen 12, Creatinine 0.70, Estimat Glomerular Filtration Rate > 60, BUN/Creatinine Ratio 17, Glucose Level 87, Calcium Level 8.8 Laboratory Tests 08/06/17 05:58 08/07/17 05:37 Pending Labs Laboratory Tests 08/06/17 05:58: White Blood Count 6.1, Red Blood Count 3.58, Hemoglobin 10.3, Hematocrit 33, Mean Corpuscular Volume 91, Mean Corpuscular Hemoglobin 29, Mean Corpuscular Hemoglobin Concent 32, Red Cell Distribution Width 14.6, Platelet Count 233, Mean Platelet Volume 9.3, Neutrophils (%) (Auto) 81, Lymphocytes (%) (Auto) 9, Monocytes (%) (Auto) 9, Eosinophils (%) (Auto) 0, Basophils (%) (Auto) 0, Neutrophils # (Auto) 5.0, Lymphocytes # (Auto) 0.6, Monocytes # (Auto) 0.6, Eosinophils # (Auto) 0.0, Basophils # (Auto) 0.0, Sodium Level 137, Potassium Level 4.6, Chloride Level 99, Carbon Dioxide Level 29, Anion Gap 9, Blood Urea Nitrogen 9, Creatinine 0.62, Estimat Glomerular Filtration Rate > 60, BUN/ Creatinine Ratio 15, Glucose Level 112, Calcium Level 9.0, Total Bilirubin 0.2, Aspartate Amino Transf (AST/SGOT) 9, Alanine Aminotransferase (ALT/SGPT) < 6, Alkaline Phosphatase 117, Total Protein 7.0, Albumin 3.8 08/07/17 05:37: White Blood Count 5.2, Red Blood Count 3.62, Hemoglobin 10.6, Hematocrit 33, Mean Corpuscular Volume 92, Mean Corpuscular Hemoglobin 29, Mean Corpuscular Hemoglobin Concent 32, Red Cell Distribution Width 15.3, Platelet Count 267, Mean Platelet Volume 9.1, Sodium Level 140, Potassium Level 4.1, Chloride Level 101, Carbon Dioxide Level 31, Anion Gap 8, Blood Urea Nitrogen 12, Creatinine 0.70, Estimat Glomerular Filtration Rate > 60, BUN/Creatinine Ratio 17, Glucose Level 87, Calcium Level 8.8 Discharge Home Medications: Active Scripts Active Prednisone 10 Mg Tab 60 Mg PO DAILY@1200 Take 5 tabs(50mg)daily, decrease by 1 tab(10mg) every other day. Cefdinir 300 Mg Capsule 300 Mg PO BID FILLED 08/03/17 #20 FOR A 10 DAY THERAPY Reported Ropinirole HCl 0.25 Mg Tablet 0.25 Mg PO Q8H Atorvastatin Calcium 20 Mg Tablet 20 Mg PO 0300 Dexamethasone 4 Mg Tablet PO UD TAKE 3 (4MG) TABLETS THE NIGHT BEFORE AND MORNING OF CHEMO Carbamazepine 200 Mg Tablet 400 Mg PO 1500 TAKES 2 (200 MG) TABLETS Amlodipine Besylate 5 Mg Tablet 5 Mg PO DAILY Lamotrigine 25 Mg Tablet 25 Mg PO 1500,0300 Lisinopril 20 Mg Tablet 20 Mg PO 0300 Proair Hfa (Albuterol Sulfate) 1 Puff Puff 2 Puff IH Q6H PRN 1 PUFF = 90 MCG Spiriva (Tiotropium [place]) 1 Inh Aerp 1 Cap IH DAILY Albuterol Sulfate 2.5 Mg/3 Ml Vial.neb 2.5 Mg NEB 5XD PRN Tegretol (Carbamazepine) 200 Mg Tablet 200 Mg PO 0800,2300,0300 Phenytoin Sodium Extended 100 Mg Capsule 100 Mg PO 0800,2300 Phenytoin Sodium Extended 100 Mg Capsule 200 Mg PO 1500 TAKES 2 (100 MG) CAPSULES Gabapentin 600 Mg Tablet 600 Mg PO 0800,1500 Gabapentin 300 Mg Capsule 300 Mg PO 2300 Lamotrigine 100 Mg Tablet 100 Mg PO 1500,2300 Instructions to patient/family Please see electronic discharge instructions given to patient. Clinical Quality Measures DVT/VTE Risk/Contraindication: Risk Factor Score Per Nursin RFS Level Per Nursing on Admit: 4+=Very High AMANDEEP GENAO DO August 08, 2017 08:38
--- NOTE | 2017-08-12 15:32 | Physician Query Clarification ---
PQ-Uncertain Diagnosis Admission/Discharge Admission Date: August 05, 2017 at 15:56 Discharge Date: August 07, 2017 at 12:55 The medical record reflects the following clinical scenario: History/Risk Factors: COPD/Pneumonia Clinical Findings: worsening SOB that was sudden onset Treatment: O2 @ 5L Question: Is Acute on Chronic respiratory failure a clinically valid diagnosis? Acute on Chronic respiratory failure was documented in the pulmonary consult on 08/06/17 with no further documentation in the medical record. Please document a response below. PHYSICIAN RESPONSE Diagnosis clinically valid: Yes, Conditon resolved In responding to this query, please exercise your independent professional judgment. The purpose of this communication is to more accurately reflect the complexity of your patients condition. The fact that a question is asked does not imply that any particular answer is desired or expected. Thank you for your timely response to this clarification. Requestors name: Shanna Zavaleta THIS PHYSICIAN QUERY FORM IS A PERMANENT PART OF THE MEDICAL RECORD CHINO ZAVALETA August 12, 2017 15:31 AMANDEEP GENAO DO August 13, 2017 07:15
== END 2017-08-07 12:55 | disposition home or self-care (01) | DRG 189 ==
LOC: 4TH 15:56
PROVIDERS: ADMIT Family Medicine; ATTEND Family Medicine
DX: J96.20 Acute and chronic respiratory failure, unspecified whether with hypoxia or hypercapnia (principal); J44.0 Chronic obstructive pulmonary disease with (acute) lower respiratory infection; J18.9 Pneumonia, unspecified organism; J44.1 Chronic obstructive pulmonary disease with (acute) exacerbation; C34.90 Malignant neoplasm of unspecified part of unspecified bronchus or lung; G47.30 Sleep apnea, unspecified; G14 Postpolio syndrome; G40.909 Epilepsy, unspecified, not intractable, without status epilepticus; E78.00 Pure hypercholesterolemia, unspecified; I10 Essential (primary) hypertension; Z87.891 Personal history of nicotine dependence; Z99.81 Dependence on supplemental oxygen
CPT/HCPCS: 36415; 36600; 71045; 71275; 80048; 80053; 81000; 82805; 83605; 85025; 85027; 85610; 85730; 87040; 87070; 87077; 87186; 87205; 94640; 94664; 94760; 96361; 96365; 96375

== ENCOUNTER → 2017-08-28 | Outpatient (CLI) | payer MEDICAID ==
[~2017-08-28] MED LIST changes: +ATOR20TA66 PO; +ROPI0.25 PO
--- NOTE | 2017-08-28 18:37 | Diagnostic Imaging Report ---
INDICATION: Left leg swelling. TECHNIQUE: Color Doppler velocity and spectral waveform analysis of the veins of both lower extremities was performed. FINDINGS: Examination shows normal augmentation, compression and color Doppler flow with no thrombosis or other abnormality seen. IMPRESSION: No abnormality is seen. Dictated by: Dictated on workstation # [id number]
== END ==
LOC: RAD 17:10
PROVIDERS: ATTEND Nurse Practitioner Family
DX: M79.89 Other specified soft tissue disorders (principal); R91.8 Other nonspecific abnormal finding of lung field; M79.604 Pain in right leg; M79.605 Pain in left leg
CPT/HCPCS: 93970

== ENCOUNTER → 2017-09-04 | Outpatient (CLI) | payer MEDICAID ==
[2017-09-04 11:50] LABS: BASOPHILS % (AUTO) 1 % (0-10); EOSINOPHILS % (AUTO) 0 % (0-10); HEMATOCRIT 33 % (40-54); LYMPHOCYTES # (AUTO) 0.6 X 10^3 (1.0-4.0); LYMPHOCYTES % (AUTO) 19 % (12-44); MEAN CORPUSCULAR HEMOGLOBIN 29 PG (25-34); MEAN CORPUSCULAR HGB CONC 33 G/DL (32-36); MEAN CORPUSCULAR VOLUME 87 FL (80-99); MEAN PLATELET VOLUME 8.7 FL (7.4-10.4); MONOCYTES # (AUTO) 0.4 X 10^3 (0.0-1.0); MONOCYTES % (AUTO) 12 % (0-12); NEUTROPHILS # (AUTO) 2.1 X 10^3 (1.8-7.8); NEUTROPHILS % (AUTO) 68 % (42-75); PLATELET COUNT 216 10^3/uL (130-400); RED BLOOD COUNT 3.78 10^6/uL (4.35-5.85); RED CELL DISTRIBUTION WIDTH 14.8 % (10.0-14.5); WHITE BLOOD COUNT 3.2 10^3/uL (4.3-11.0)
[2017-09-04 12:04] LABS: BUN/CREATININE RATIO 16; CARBON DIOXIDE 24 MMOL/L (21-32); CHLORIDE 93 MMOL/L (98-107); CREATININE SERUM 0.69 MG/DL (0.60-1.30); GFR ESTIMATED > 60; GLUCOSE 109 MG/DL (70-105); POTASSIUM 4.7 MMOL/L (3.6-5.0); SODIUM 129 MMOL/L (135-145)
== END ==
LOC: LAB 11:24
PROVIDERS: ATTEND Nurse Practitioner Adult Health
DX: C34.12 Malignant neoplasm of upper lobe, left bronchus or lung (principal); C79.51 Secondary malignant neoplasm of bone
CPT/HCPCS: 36415; 80048; 85025

== ENCOUNTER 2017-09-18 13:18 | Outpatient (RCR) | payer MEDICAID ==
[2017-07-03 09:21] LABS: BASOPHILS # (AUTO) 0.1 10^3/uL (0.0-0.1); BASOPHILS % (AUTO) 1 % (0-10); EOSINOPHILS % (AUTO) 0 % (0-10); HEMATOCRIT 32 % (40-54); HEMOGLOBIN 10.3 G/DL (13.3-17.7); LYMPHOCYTES # (AUTO) 0.9 X 10^3 (1.0-4.0); LYMPHOCYTES % (AUTO) 14 % (12-44); MEAN CORPUSCULAR HEMOGLOBIN 30 PG (25-34); MEAN CORPUSCULAR HGB CONC 32 G/DL (32-36); MEAN CORPUSCULAR VOLUME 93 FL (80-99); MEAN PLATELET VOLUME 8.8 FL (7.4-10.4); MONOCYTES % (AUTO) 16 % (0-12); NEUTROPHILS # (AUTO) 4.2 X 10^3 (1.8-7.8); NEUTROPHILS % (AUTO) 69 % (42-75); PLATELET COUNT 281 10^3/uL (130-400); RED BLOOD COUNT 3.43 10^6/uL (4.35-5.85); RED CELL DISTRIBUTION WIDTH 14.7 % (10.0-14.5); WHITE BLOOD COUNT 6.2 10^3/uL (4.3-11.0)
[2017-07-03 09:41] LABS: ALANINE AMINOTRANSFERASE 9 U/L (0-55); ALBUMIN 3.9 GM/DL (3.2-4.5); ALKALINE PHOSPHATASE 130 U/L (40-136); BILIRUBIN,TOTAL 0.2 MG/DL (0.1-1.0); BUN/CREATININE RATIO 18; CALCIUM 8.9 MG/DL (8.5-10.1); CARBON DIOXIDE 29 MMOL/L (21-32); CHLORIDE 96 MMOL/L (98-107); CREATININE SERUM 0.67 MG/DL (0.60-1.30); GFR ESTIMATED > 60; GLUCOSE 110 MG/DL (70-105); POTASSIUM 4.4 MMOL/L (3.6-5.0); SODIUM 134 MMOL/L (135-145); TOTAL PROTEIN 7.3 GM/DL (6.4-8.2)
[2017-08-14 11:19] LABS: BASOPHILS % (AUTO) 0 % (0-10); EOSINOPHILS % (AUTO) 0 % (0-10); HEMATOCRIT 35 % (40-54); HEMOGLOBIN 11.1 G/DL (13.3-17.7); LYMPHOCYTES # (AUTO) 0.4 X 10^3 (1.0-4.0); LYMPHOCYTES % (AUTO) 7 % (12-44); MEAN CORPUSCULAR HEMOGLOBIN 29 PG (25-34); MEAN CORPUSCULAR HGB CONC 32 G/DL (32-36); MEAN CORPUSCULAR VOLUME 91 FL (80-99); MEAN PLATELET VOLUME 9.2 FL (7.4-10.4); MONOCYTES # (AUTO) 0.2 X 10^3 (0.0-1.0); MONOCYTES % (AUTO) 4 % (0-12); NEUTROPHILS # (AUTO) 4.9 X 10^3 (1.8-7.8); NEUTROPHILS % (AUTO) 89 % (42-75); PLATELET COUNT 274 10^3/uL (130-400); RED BLOOD COUNT 3.83 10^6/uL (4.35-5.85); RED CELL DISTRIBUTION WIDTH 14.8 % (10.0-14.5); WHITE BLOOD COUNT 5.5 10^3/uL (4.3-11.0)
[2017-08-14 11:38] LABS: ALANINE AMINOTRANSFERASE 9 U/L (0-55); ALBUMIN 4.2 GM/DL (3.2-4.5); ALKALINE PHOSPHATASE 103 U/L (40-136); BILIRUBIN,TOTAL 0.3 MG/DL (0.1-1.0); BUN/CREATININE RATIO 13; CALCIUM 9.3 MG/DL (8.5-10.1); CARBON DIOXIDE 29 MMOL/L (21-32); CHLORIDE 95 MMOL/L (98-107); CREATININE SERUM 0.67 MG/DL (0.60-1.30); GFR ESTIMATED > 60; GLUCOSE 119 MG/DL (70-105); SODIUM 133 MMOL/L (135-145); TOTAL PROTEIN 7.6 GM/DL (6.4-8.2)
[2017-08-21 13:42] LABS: BASOPHILS % (AUTO) 0 % (0-10); EOSINOPHILS % (AUTO) 0 % (0-10); HEMATOCRIT 33 % (40-54); HEMOGLOBIN 10.7 G/DL (13.3-17.7); LYMPHOCYTES # (AUTO) 0.6 X 10^3 (1.0-4.0); LYMPHOCYTES % (AUTO) 15 % (12-44); MEAN CORPUSCULAR HEMOGLOBIN 29 PG (25-34); MEAN CORPUSCULAR HGB CONC 33 G/DL (32-36); MEAN CORPUSCULAR VOLUME 89 FL (80-99); MEAN PLATELET VOLUME 9.2 FL (7.4-10.4); MONOCYTES # (AUTO) 0.4 X 10^3 (0.0-1.0); MONOCYTES % (AUTO) 10 % (0-12); NEUTROPHILS # (AUTO) 3.2 X 10^3 (1.8-7.8); NEUTROPHILS % (AUTO) 75 % (42-75); PLATELET COUNT 213 10^3/uL (130-400); RED BLOOD COUNT 3.67 10^6/uL (4.35-5.85); RED CELL DISTRIBUTION WIDTH 14.8 % (10.0-14.5); WHITE BLOOD COUNT 4.3 10^3/uL (4.3-11.0)
[2017-08-21 14:15] LABS: BUN/CREATININE RATIO 13; CALCIUM 9.2 MG/DL (8.5-10.1); CARBON DIOXIDE 30 MMOL/L (21-32); CHLORIDE 98 MMOL/L (98-107); CREATININE SERUM 0.69 MG/DL (0.60-1.30); GFR ESTIMATED > 60; GLUCOSE 106 MG/DL (70-105); POTASSIUM 4.4 MMOL/L (3.6-5.0); SODIUM 137 MMOL/L (135-145)
[2017-08-28 14:32] LABS: BASOPHILS % (AUTO) 0 % (0-10); EOSINOPHILS % (AUTO) 0 % (0-10); HEMATOCRIT 32 % (40-54); HEMOGLOBIN 10.6 G/DL (13.3-17.7); LYMPHOCYTES # (AUTO) 0.5 X 10^3 (1.0-4.0); LYMPHOCYTES % (AUTO) 11 % (12-44); MEAN CORPUSCULAR HEMOGLOBIN 29 PG (25-34); MEAN CORPUSCULAR HGB CONC 33 G/DL (32-36); MEAN CORPUSCULAR VOLUME 90 FL (80-99); MEAN PLATELET VOLUME 9.3 FL (7.4-10.4); MONOCYTES # (AUTO) 0.2 X 10^3 (0.0-1.0); MONOCYTES % (AUTO) 5 % (0-12); NEUTROPHILS # (AUTO) 3.8 X 10^3 (1.8-7.8); NEUTROPHILS % (AUTO) 83 % (42-75); PLATELET COUNT 200 10^3/uL (130-400); RED CELL DISTRIBUTION WIDTH 14.9 % (10.0-14.5); WHITE BLOOD COUNT 4.6 10^3/uL (4.3-11.0)
[2017-08-28 14:47] LABS: BUN/CREATININE RATIO 13; CALCIUM 9.2 MG/DL (8.5-10.1); CARBON DIOXIDE 28 MMOL/L (21-32); CHLORIDE 97 MMOL/L (98-107); CREATININE SERUM 0.67 MG/DL (0.60-1.30); GFR ESTIMATED > 60; GLUCOSE 101 MG/DL (70-105); POTASSIUM 4.8 MMOL/L (3.6-5.0); SODIUM 133 MMOL/L (135-145)
[2017-09-11 13:35] LABS: BASOPHILS % (AUTO) 1 % (0-10); EOSINOPHILS % (AUTO) 0 % (0-10); HEMATOCRIT 32 % (40-54); HEMOGLOBIN 10.8 G/DL (13.3-17.7); LYMPHOCYTES # (AUTO) 0.8 X 10^3 (1.0-4.0); LYMPHOCYTES % (AUTO) 17 % (12-44); MEAN CORPUSCULAR HEMOGLOBIN 30 PG (25-34); MEAN CORPUSCULAR HGB CONC 34 G/DL (32-36); MEAN CORPUSCULAR VOLUME 89 FL (80-99); MEAN PLATELET VOLUME 8.7 FL (7.4-10.4); MONOCYTES # (AUTO) 0.8 X 10^3 (0.0-1.0); MONOCYTES % (AUTO) 16 % (0-12); NEUTROPHILS # (AUTO) 3.2 X 10^3 (1.8-7.8); NEUTROPHILS % (AUTO) 67 % (42-75); PLATELET COUNT 218 10^3/uL (130-400); RED BLOOD COUNT 3.63 10^6/uL (4.35-5.85); RED CELL DISTRIBUTION WIDTH 14.9 % (10.0-14.5); WHITE BLOOD COUNT 4.8 10^3/uL (4.3-11.0)
[2017-09-11 13:56] LABS: ALANINE AMINOTRANSFERASE 7 U/L (0-55); ALBUMIN 4.1 GM/DL (3.2-4.5); ALKALINE PHOSPHATASE 137 U/L (40-136); BILIRUBIN,TOTAL 0.2 MG/DL (0.1-1.0); BUN/CREATININE RATIO 18; CARBON DIOXIDE 30 MMOL/L (21-32); CHLORIDE 97 MMOL/L (98-107); CREATININE SERUM 0.67 MG/DL (0.60-1.30); GFR ESTIMATED > 60; GLUCOSE 96 MG/DL (70-105); MAGNESIUM 2.2 MG/DL (1.8-2.4); POTASSIUM 4.6 MMOL/L (3.6-5.0); SODIUM 133 MMOL/L (135-145); TOTAL PROTEIN 7.2 GM/DL (6.4-8.2)
[~2017-09-18] VITALS: Ht 180.3 cm; Wt 77.1 kg
[~2017-09-18 13:18] MED LIST changes: +CARBOPLATIN 160 MG in D5W 50 ML IV(CANCER CTR) 50 ML IV SCH; +FAMOTIDINE 20MG/2ML IV (CANCER CTR) IV SCH; +NS IV 1000 ML (CANCER CTR) IV SCH; +ONDANSETRON MDV (CANCER CENTER 16 MG, DEXAMETHASONE INJ (CANCER CTR) 4 MG in NS (IVPB) ... IV SCH; +ONDANSETRON MDV (CANCER CENTER 16 MG, DEXAMETHASONE PF INJ (CANCER C 10 MG in NS (IVPB)... IV SCH; +PACLITAXEL 140 MG in NORMAL SALINE (CANCER CENTER) 250 ML IV SCH; +diphenhydrAMINE 25 MG TAB (BENADRYL) CANCER CENTER PO SCH; +diphenhydrAMINE 50 MG/ML INJ (CANCER CENTER) IV PRN; +diphenhydrAMINE 50 MG/ML INJ (CANCER CENTER) ONE
[2017-09-18 14:06] LABS: BASOPHILS % (AUTO) 1 % (0-10); EOSINOPHILS % (AUTO) 0 % (0-10); HEMATOCRIT 33 % (40-54); HEMOGLOBIN 10.9 G/DL (13.3-17.7); LYMPHOCYTES # (AUTO) 0.8 X 10^3 (1.0-4.0); LYMPHOCYTES % (AUTO) 19 % (12-44); MEAN CORPUSCULAR HEMOGLOBIN 29 PG (25-34); MEAN CORPUSCULAR HGB CONC 33 G/DL (32-36); MEAN CORPUSCULAR VOLUME 87 FL (80-99); MEAN PLATELET VOLUME 8.7 FL (7.4-10.4); MONOCYTES # (AUTO) 0.4 X 10^3 (0.0-1.0); MONOCYTES % (AUTO) 10 % (0-12); NEUTROPHILS % (AUTO) 71 % (42-75); PLATELET COUNT 204 10^3/uL (130-400); RED BLOOD COUNT 3.75 10^6/uL (4.35-5.85); RED CELL DISTRIBUTION WIDTH 14.9 % (10.0-14.5); WHITE BLOOD COUNT 4.2 10^3/uL (4.3-11.0)
[2017-09-18 14:24] LABS: BUN/CREATININE RATIO 16; CARBON DIOXIDE 27 MMOL/L (21-32); CHLORIDE 96 MMOL/L (98-107); CREATININE SERUM 0.69 MG/DL (0.60-1.30); GFR ESTIMATED > 60; GLUCOSE 87 MG/DL (70-105); POTASSIUM 4.7 MMOL/L (3.6-5.0); SODIUM 131 MMOL/L (135-145)
[2017-09-24] MEDS ORDERED: ATOR10TA66 PO (08:31)
[2017-09-24] MEDS ORDERED: FLUT1DIS26 INH (08:31)
[2017-09-24] MEDS ORDERED: MELO15TA39 PO (08:31)
[2017-09-24] MEDS ORDERED: HYDR-3812 PO (08:31)
[2017-09-24] MEDS ORDERED: PANT40TA3 PO (08:32)
[2017-09-28] MEDS ORDERED: CEFD300C3 PO (10:34)
== END 2017-10-01 | disposition home or self-care (01) ==
LOC: ONC 13:18
PROVIDERS: ATTEND Internal Medicine Hematology & Oncology
DX: Z51.11 Encounter for antineoplastic chemotherapy (principal); C34.12 Malignant neoplasm of upper lobe, left bronchus or lung; C79.51 Secondary malignant neoplasm of bone; M89.9 Disorder of bone, unspecified; J43.9 Emphysema, unspecified; G40.909 Epilepsy, unspecified, not intractable, without status epilepticus; E78.5 Hyperlipidemia, unspecified; Z87.891 Personal history of nicotine dependence; Z79.899 Other long term (current) drug therapy
CPT/HCPCS: 36591; 80048; 80053; 83735; 85025; 96375; 96413; 96417; 99213

== ENCOUNTER 2017-09-24 03:02 | Inpatient (IN) | payer MEDICAID ==
[2017-09-24] VITALS (11 sets, daily range): BP systolic 75–126; BP diastolic 45–102
[~2017-09-24] VITALS: Ht 185.4 cm; Wt 81.4 kg
[~2017-09-24 03:02] MED LIST changes: -CARBOPLATIN 160 MG in D5W 50 ML IV(CANCER CTR) 50 ML IV SCH; -FAMOTIDINE 20MG/2ML IV (CANCER CTR) IV SCH; -NS IV 1000 ML (CANCER CTR) IV SCH; -ONDANSETRON MDV (CANCER CENTER 16 MG, DEXAMETHASONE INJ (CANCER CTR) 4 MG in NS (IVPB) ... IV SCH; -ONDANSETRON MDV (CANCER CENTER 16 MG, DEXAMETHASONE PF INJ (CANCER C 10 MG in NS (IVPB)... IV SCH; -PACLITAXEL 140 MG in NORMAL SALINE (CANCER CENTER) 250 ML IV SCH; -diphenhydrAMINE 25 MG TAB (BENADRYL) CANCER CENTER PO SCH; -diphenhydrAMINE 50 MG/ML INJ (CANCER CENTER) IV PRN; -diphenhydrAMINE 50 MG/ML INJ (CANCER CENTER) ONE
[2017-09-24] MEDS ORDERED: methylPREDNISolone 125 MG (Solu-MEDROL) VIAL IV STA (03:39)
[2017-09-24] MEDS ORDERED: RT-ALBUTEROL/IPRATROPIUM 3 ML (DUONEB) VIAL INH ONE (03:45)
[2017-09-24] MEDS ORDERED: DEXAMETHASONE 4 MG/ML SDV (DECADRON) IH ONE (03:45)
[2017-09-24 03:48] LABS: BASOPHILS % (AUTO) 0 % (0-10); EOSINOPHILS % (AUTO) 0 % (0-10); HEMATOCRIT 33 % (40-54); HEMOGLOBIN 11.3 G/DL (13.3-17.7); LYMPHOCYTES # (AUTO) 0.4 X 10^3 (1.0-4.0); LYMPHOCYTES % (AUTO) 7 % (12-44); MEAN CORPUSCULAR HEMOGLOBIN 29 PG (25-34); MEAN CORPUSCULAR HGB CONC 34 G/DL (32-36); MEAN CORPUSCULAR VOLUME 86 FL (80-99); MEAN PLATELET VOLUME 8.6 FL (7.4-10.4); MONOCYTES # (AUTO) 0.3 X 10^3 (0.0-1.0); MONOCYTES % (AUTO) 5 % (0-12); NEUTROPHILS # (AUTO) 5.9 X 10^3 (1.8-7.8); NEUTROPHILS % (AUTO) 88 % (42-75); PLATELET COUNT 197 10^3/uL (130-400); RED BLOOD COUNT 3.89 10^6/uL (4.35-5.85); RED CELL DISTRIBUTION WIDTH 15.2 % (10.0-14.5); WHITE BLOOD COUNT 6.6 10^3/uL (4.3-11.0)
[2017-09-24 04:14] LABS: ANISOCYTOSIS SLIGHT; BAND NEUTROPHILS 2 %; BASOPHILS % (MANUAL) 0 %; EOSINOPHILS % (MANUAL) 0 %; LYMPHOCYTES % (MANUAL) 6 %; MONOCYTES % (MANUAL) 12 %; NEUTROPHILS % (MANUAL) 80 %
[2017-09-24] MEDS ORDERED: CEFEPIME INJECTION 2,000 MG in NS (IVPB) 50 ML IV ONE (04:15)
[2017-09-24 04:19] LABS: ALANINE AMINOTRANSFERASE 7 U/L (0-55); ALBUMIN 4.3 GM/DL (3.2-4.5); ALKALINE PHOSPHATASE 124 U/L (40-136); BILIRUBIN,TOTAL 0.5 MG/DL (0.1-1.0); BUN/CREATININE RATIO 13; CALCIUM 9.4 MG/DL (8.5-10.1); CARBON DIOXIDE 24 MMOL/L (21-32); CHLORIDE 97 MMOL/L (98-107); CREATININE SERUM 0.67 MG/DL (0.60-1.30); GFR ESTIMATED > 60; GLUCOSE 119 MG/DL (70-105); MAGNESIUM 1.9 MG/DL (1.8-2.4); POTASSIUM 4.8 MMOL/L (3.6-5.0); SODIUM 132 MMOL/L (135-145); TOTAL PROTEIN 7.6 GM/DL (6.4-8.2)
[2017-09-24] MEDS ORDERED: NS (IVPB) 50 ML ONE (04:20)
[2017-09-24] MEDS ORDERED: CEFEPIME HCL 2 GM (MAXIPIME) VIAL ONE (04:20)
--- NOTE | 2017-09-24 06:47 | ED Respiratory ---
General Chief Complaint: Respiratory Problems Stated Complaint: PNEUMONIA,METASTATIC LUNG CANCER ON CHEMO,COPD Nursing Triage Note: soa, possible fever Source: patient History of Present Illness Date Seen by Provider: Sep 24, 2017 Time Seen by Provider: 03:24 Initial Comments PT ARRIVES VIA EMS FROM HOME C/O SHORTNESS OF BREATH SINCE AROUND 2200 TONIGHT PT HAS COPD, AND WAS DX WITH METASTATIC LUNG CANCER IN MAY OF THIS YEAR. METS TO BONE. PT IS RECEIVING CHEMO, AND STATES HIS LAST TREATMENT WAS Friday, NEXT ONE IS DUE THIS Friday09/29/17 POSSIBLE FEVER, HAS HAD CHILLS, BUT NOT CHECKED TEMP NO CHEST PAIN NO SWELLING IN LEGS/ FEET OR PAIN IN CALVES NO COUGH PT WEARS HOME O2 AT 5L/NC CONTINUOUSLY. PT'S LAST ALBUTEROL NEB TREATMENT WAS AN HOUR PRIOR TO ARRIVAL PT WITH MULTIPLE VISITS FOR SAME--LAST VISIT/ADMIT WAS 08/05-08/07 PCP: DR. GENAO SPECIAL AGENT FBI: DR. PACHECO ONCOLOGIST: DR. PRICE Allergies and Home Medications Allergies Coded Allergies: aspirin (Unverified Allergy, Mild, DOES NOT WORK WELL W/ OTHER MEDS, ) ibuprofen (Unverified Allergy, Mild, 08/05/17) Home Medications Albuterol Sulfate 2.5 Mg/3 Ml Vial.neb, 2.5 MG NEB 5XD PRN for SHORTNESS OF BREATH, (Reported) Albuterol Sulfate 1 Puff Puff, 2 PUFF IH Q6H PRN for SHORTNESS OF BREATH, ( Reported) 1 PUFF = 90 MCG Amlodipine Besylate 5 Mg Tablet, 5 MG PO DAILY, (Reported) Atorvastatin Calcium 20 Mg Tablet, 20 MG PO 0300, (Reported) Carbamazepine 200 Mg Tablet, 200 MG PO 0800,2300,0300, (Reported) Carbamazepine 200 Mg Tablet, 400 MG PO 1500, (Reported) TAKES 2 (200 MG) TABLETS Cefdinir 300 Mg Capsule, 300 MG PO BID FILLED 08/03/17 #20 FOR A 10 DAY THERAPY Prescribed by: AMANDEEP GENAO on 08/07/17 1144 Dexamethasone 4 Mg Tablet, PO UD, (Reported) TAKE 3 (4MG) TABLETS THE NIGHT BEFORE AND MORNING OF CHEMO Gabapentin 300 Mg Capsule, 300 MG PO 2300, (Reported) Gabapentin 600 Mg Tablet, 600 MG PO 0800,1500, (Reported) Lamotrigine 100 Mg Tablet, 100 MG PO 1500,2300, (Reported) Lamotrigine 25 Mg Tablet, 25 MG PO 1500,0300, (Reported) Lisinopril 20 Mg Tablet, 20 MG PO 0300, (Reported) Phenytoin Sodium Extended 100 Mg Capsule, 200 MG PO 1500, (Reported) TAKES 2 (100 MG) CAPSULES Phenytoin Sodium Extended 100 Mg Capsule, 100 MG PO 0800,2300, (Reported) Prednisone 10 Mg Tab, 60 MG PO DAILY@1200 Take 5 tabs(50mg)daily, decrease by 1 tab(10mg) every other day. Prescribed by: AMANDEEP GENAO on 08/07/17 1147 Ropinirole HCl 0.25 Mg Tablet, 0.25 MG PO Q8H, (Reported) Tiotropium [place] 1 Inh Aerp, 1 CAP IH DAILY, (Reported) Patient Home Medication List Home Medication List Reviewed: Yes Review of Systems Constitutional: see HPI, chills Respiratory: see HPI, short of breath Cardiovascular: No chest pain Gastrointestinal: no symptoms reported Musculoskeletal: no symptoms reported Skin: no symptoms reported Past Lblpccg-Vdehtj-Tdkfom Hx Patient Social History Alcohol Use: Past History (HEAVY, REGULAR USE BY HX) Recreational Drug Use: Yes Smoking Status: Former Smoker (2 04/01 PPD, QUIT 05/2017) Type Used: Cigarettes 2nd Hand Smoke Exposure: No Recent Foreign Travel: No Contact w/Someone Who Travel: No Recent Infectious Disease Expo: No Recent Hopitalizations: Yes Immunizations Up To Date Tetanus Booster (TDap): Unknown PED Vaccines UTD: Yes Seasonal Allergies Seasonal Allergies: Yes Past Medical History Surgeries: Yes Gallbladder Respiratory: Yes (METASTATIC LUNG CANCER DX 05/2017) Asthma, Sleep Apnea, COPD Currently Using CPAP: No Currently Using BIPAP: Yes Cardiac: Yes High Cholesterol, Hypertension Neurological: Yes (post polio syndrome with left-sided deficits) Seizure Disorder Reproductive Disorders: No Sexually Transmitted Disease: No HIV/AIDS: No Genitourinary: No Gastrointestinal: No Musculoskeletal: Yes Arthritis Endocrine: No HEENT: No Loss of Vision: Denies Hearing Impairment: Denies Cancer: Yes Lung Did You Recieve Any Treatments: Yes What Type of Treatment Did You: Chemotherapy Psychosocial: No Integumentary: No Blood Disorders: No Adverse Reaction/Blood Tranf: No Family Medical History Hypercholesterolemia 19 FATHER Hypertension 19 FATHER No Pertinent Family Hx, Heart Disease Physical Exam Vital Signs Vital Signs - First Documented Capillary Refill : Less Than 3 Seconds General Appearance: WD/WN, other (SLIGHTLY DYSPNEIC, BUT ABLE TO TALK IN FULL SENTENCES, PT TALKATIVE. ) HEENT: other (EDENTULOUS, CONSTANT LIP LICKING AND TONGUE MOVEMENTS) Neck: normal inspection Respiratory: no accessory muscle use, other (DECREASED AERATION AND FAINT RALES IN RIGHT BASE, EXPIRATORY WHEEZING IN LEFT BASE. MILDLY DYSPNEIC. ) Cardiovascular: regular rate, rhythm, no murmur Gastrointestinal: non tender, soft Neurologic/Psychiatric: director title II-XII nml as tested, no motor/sensory deficits ( GROSSLY INTACT--HX OF POLIO WITH RESIDUAL LEFT SIDE WEAKNESS), alert, normal mood/affect, oriented x 3 Skin: normal color, warm/dry Procedures/Interventions Date of ETT Placement: Mar 09, 2017 Time of ETT Placement: 1811 Suture Size: 5-0 Progress/Results/Core Measures Suspected Sepsis Recent Fever Within 48 Hours: Yes Infection Criteria Present: Suspected New Infection New/Unexplained Altered Menta: No Sepsis Screen: Possible Sepsis Risk SIRS Temperature:101.9 Pulse: 98 Respiratory Rate: 28 Laboratory Tests 09/24/17 03:35: White Blood Count 6.6 Blood Pressure 120 /79 Mean: 93 Laboratory Tests 09/24/17 03:35: Creatinine 0.67, INR Comment 1.0, Platelet Count 197, Total Bilirubin 0.5 Results/Orders Lab Results Laboratory Tests Test 09/24/17 03:35 Range/Units White Blood Count 6.6 4.3-11.0 10^3/uL Red Blood Count 3.89 L 4.35-5.85 10^6/uL Hemoglobin 11.3 L 13.3-17.7 G/DL Hematocrit 33 L 40-54 % Mean Corpuscular Volume 86 80-99 FL Mean Corpuscular Hemoglobin 29 25-34 PG Mean Corpuscular Hemoglobin Concent 34 32-36 G/DL Red Cell Distribution Width 15.2 H 10.0-14.5 % Platelet Count 197 130-400 10^3/uL Mean Platelet Volume 8.6 7.4-10.4 FL Neutrophils (%) (Auto) 88 H 42-75 % Lymphocytes (%) (Auto) 7 L 12-44 % Monocytes (%) (Auto) 5 0-12 % Eosinophils (%) (Auto) 0 0-10 % Basophils (%) (Auto) 0 0-10 % Neutrophils # (Auto) 5.9 1.8-7.8 X 10^3 Lymphocytes # (Auto) 0.4 L 1.0-4.0 X 10^3 Monocytes # (Auto) 0.3 0.0-1.0 X 10^3 Eosinophils # (Auto) 0.0 0.0-0.3 10^3/uL Basophils # (Auto) 0.0 0.0-0.1 10^3/uL Neutrophils % (Manual) 80 % Lymphocytes % (Manual) 6 % Monocytes % (Manual) 12 % Eosinophils % (Manual) 0 % Basophils % (Manual) 0 % Band Neutrophils 2 % Anisocytosis SLIGHT Prothrombin Time 13.0 12.2-14.7 SEC INR Comment 1.0 0.8-1.4 Activated Partial Thromboplast Time 35 24-35 SEC Sodium Level 132 L 135-145 MMOL/L Potassium Level 4.8 3.6-5.0 MMOL/L Chloride Level 97 L 98-107 MMOL/L Carbon Dioxide Level 24 21-32 MMOL/L Anion Gap 11 5-14 MMOL/L Blood Urea Nitrogen 9 7-18 MG/DL Creatinine 0.67 0.60-1.30 MG/DL Estimat Glomerular Filtration Rate > 60 BUN/Creatinine Ratio 13 Glucose Level 119 H 70-105 MG/DL Calcium Level 9.4 8.5-10.1 MG/DL Magnesium Level 1.9 1.8-2.4 MG/DL Total Bilirubin 0.5 0.1-1.0 MG/DL Aspartate Amino Transf (AST/SGOT) 15 5-34 U/L Alanine Aminotransferase (ALT/SGPT) 7 0-55 U/L Alkaline Phosphatase 124 40-136 U/L Troponin I < 0.30 <0.30 NG/ML B-Type Natriuretic Peptide 93.3 <100.0 PG/ML Total Protein 7.6 6.4-8.2 GM/DL Albumin 4.3 3.2-4.5 GM/DL Carbamazepine (Tegretol) Level 7.5 4.0-12.0 UG/ML My Orders Orders - CHUNG DOTY DO Saline Lock/Iv-Start (09/24/17 03:24) Ekg Tracing (09/24/17 03:24) O2 (6/27/18 03:24) Monitor-Rhythm Ecg Trace Only (09/24/17 03:24) BNP (09/24/17 03:24) Cbc With Automated Diff (09/24/17 03:24) Comprehensive Metabolic Panel (09/24/17 03:24) Magnesium (09/24/17 03:24) Protime With Inr (09/24/17 03:24) Partial Thromboplastin Time (09/24/17 03:24) Troponin I (09/24/17 03:24) Chest 1 View, Ap/Pa Only (09/24/17 03:24) Albuterol/Ipra Inhalation Soln (Duoneb I (09/24/17 03:45) Dexamethasone Injection (Decadron Inject (09/24/17 03:45) Rt Request For Service (09/24/17 03:39) Methylprednisolone Sod Succ (Solu-Medrol (09/24/17 03:39) Svn Small Volume Nebulizer (09/24/17 03:39) Manual Differential (09/24/17 03:35) Carbamazepine (Tegretol) (09/24/17 03:59) Dilantin (Phenytoin) (09/24/17 03:59) Cefepime Injection (Maxipime Injection) (09/24/17 04:15) Ns (Ivpb) (Sodium Chloride 0.9% Ivpb Bag (09/24/17 04:20) Cefepime Injection (Maxipime Injection) (09/24/17 04:20) Medications Given in ED Current Medications Medications Dose Ordered Sig/Porfirio Route Start Time Stop Time Status Last Admin Dose Admin Albuterol/ Ipratropium 3 ml ONCE ONCE INH 09/24/17 03:45 09/24/17 03:46 DC 09/24/17 03:55 3 ML Cefepime HCl 2000 mg/Sodium Chloride 50 ml @ 100 mls/hr ONCE ONCE IV 09/24/17 04:15 09/24/17 04:47 DC 09/24/17 04:23 100 MLS/HR Dexamethasone Sodium Phosphate 20 mg ONCE ONCE IH 09/24/17 03:45 09/24/17 03:46 DC 09/24/17 03:56 20 MG Vital Signs/I&O 09/24/17 09/24/17 09/24/17 03:25 03:25 03:56 Temp 101.9 Pulse 108 Resp 28 B/P (MAP) 120/79 (93) Pulse Ox 90 90 93 O2 Delivery Nasal Cannula Nasal Cannula Nasal Cannula O2 Flow Rate 5.00 5.00 5.00 Capillary Refill : Less Than 3 Seconds Blood Pressure Mean: 93 Progress Note : Progress Note NO DETERIORATION IN PT'S CONDITION DURING ER STAY. INCREASED AERATION AND DECREASED WHEEZING AFTER NEB TREATMENT, RESPIRATIONS ARE UNLABORED AND PT STATES HE FEELS BETTER. ECG Initial ECG Impression Date: Sep 24, 2017 Initial ECG Impression Time: 03:28 Initial ECG Rate: 99 Initial ECG Rhythm: Normal Sinus (INFERIOR Q WAVES) Initial ECG Comparisson: Unchanged Diagnostic Imaging Comments CXR--BIBASILAR ATELECTASIS/INFILTRATES, WITH INCREASED DENSITY/INFILTRATE IN LEFT BASE IN COMPARISON TO PREVIOUS, PENDING RADIOLOGIST REVIEW Reviewed: Reviewed by Me Departure Communication (Admissions) [id number]--SPOKE WITH DR. GENAO, ACCEPTS PT FOR ADMIT. WILL CONSULT ONCOLOGY IN AM Impression Primary Impression: PNEUMONIA Additional Impressions: Lung cancer metastatic to bone COPD (chronic obstructive pulmonary disease) CURRENTLY RECEIVING CHEMOTHERAPY Disposition: 09 ADMITTED INPATIENT Condition: Improved Admissions Decision to Admit Reason: Admit from ER (General) Decision to Admit/Date: Sep 24, 2017 Time/Decision to Admit Time: 04:45 Departure-Patient Inst. Referrals: AMANDEEP GENAO DO (PCP/Family) Primary Care Physician CHUNG DOTY DO Sep 24, 2017 06:47
[2017-09-24 07:13] LABS: BASOPHILS % (AUTO) 0 % (0-10); EOSINOPHILS % (AUTO) 0 % (0-10); HEMATOCRIT 34 % (40-54); HEMOGLOBIN 11.5 G/DL (13.3-17.7); LYMPHOCYTES # (AUTO) 0.2 X 10^3 (1.0-4.0); LYMPHOCYTES % (AUTO) 3 % (12-44); MEAN CORPUSCULAR HEMOGLOBIN 29 PG (25-34); MEAN CORPUSCULAR HGB CONC 34 G/DL (32-36); MEAN CORPUSCULAR VOLUME 86 FL (80-99); MEAN PLATELET VOLUME 9.3 FL (7.4-10.4); MONOCYTES # (AUTO) 0.2 X 10^3 (0.0-1.0); MONOCYTES % (AUTO) 3 % (0-12); NEUTROPHILS # (AUTO) 8.1 X 10^3 (1.8-7.8); NEUTROPHILS % (AUTO) 95 % (42-75); PLATELET COUNT 200 10^3/uL (130-400); RED BLOOD COUNT 3.94 10^6/uL (4.35-5.85); RED CELL DISTRIBUTION WIDTH 15.3 % (10.0-14.5); WHITE BLOOD COUNT 8.5 10^3/uL (4.3-11.0)
[2017-09-24] MEDS ORDERED: ACETAMINOPHEN 500 MG TAB (TYLENOL) PO PRN (07:15)
[2017-09-24] MEDS ORDERED: GENTAMICIN (ADULT) INJECTION 480 MG in D5W 100 ML IVPB 100 ML IV SCH (07:30)
[2017-09-24 07:41] LABS: ALANINE AMINOTRANSFERASE 8 U/L (0-55); ALBUMIN 4.3 GM/DL (3.2-4.5); ALKALINE PHOSPHATASE 120 U/L (40-136); BILIRUBIN,TOTAL 0.6 MG/DL (0.1-1.0); BUN/CREATININE RATIO 14; CALCIUM 9.1 MG/DL (8.5-10.1); CARBON DIOXIDE 23 MMOL/L (21-32); CHLORIDE 96 MMOL/L (98-107); CREATININE SERUM 0.69 MG/DL (0.60-1.30); GFR ESTIMATED > 60; GLUCOSE 144 MG/DL (70-105); POTASSIUM 4.9 MMOL/L (3.6-5.0); SODIUM 129 MMOL/L (135-145); TOTAL PROTEIN 7.5 GM/DL (6.4-8.2)
--- NOTE | 2017-09-24 07:56 | Diagnostic Imaging Report ---
INDICATION: Fever with shortness of air. Exam compared with prior 08/07/2017. FINDINGS: There is a patchy airspace infiltrate in the left lower lobe and maybe involving the lingular segment of the upper lobe most consistent with pneumonia. A similar parenchymal opacity in the right lung base is partly atelectasis and maybe comprised of an element of chronic scarring as well. Pneumonia superimposed in the infrahilar right lower lobe could not be excluded. There is air trapping and COPD chronic. A right-sided catheter is at the lower SVC. There are advanced degenerative changes to the shoulders. IMPRESSION: Left lower lobe pneumonia is a new finding. Similar parenchymal opacity in the right lung base with background COPD and central line stable. Dictated by: Dictated on workstation # [id number]
[2017-09-24] MEDS ORDERED: RT-ALBUTEROL/IPRATROPIUM 3 ML (DUONEB) VIAL INH PRN (08:00)
--- NOTE | 2017-09-24 08:22 | History & Physicial ---
History of Present Illness History of Present Illness Reason for visit/HPI Short of breath. Patient came out to the emergency room due to having short of breath by car. Chest x-ray showed pneumonia. Patient has history of metastatic lung cancer to bone. Patient has history of seizures. Patient initially at 5 L of oxygen at home. Patient had seizure this morning Date of Admission Sep 24, 2017 at 04:46 Time Seen by Provider: 08:15 I consulted on this patient on 09/24/17 08:18 Attending Physician Micky Genao DO Admitting Physician Micky Genao DO Consult Allergies and Home Medications Allergies Coded Allergies: aspirin (Unverified Allergy, Mild, DOES NOT WORK WELL W/ OTHER MEDS, ) ibuprofen (Unverified Allergy, Mild, 08/05/17) Home Medications Albuterol Sulfate 2.5 Mg/3 Ml Vial.neb, 2.5 MG NEB 5XD PRN for SHORTNESS OF BREATH, (Reported) Albuterol Sulfate 1 Puff Puff, 2 PUFF IH Q6H PRN for SHORTNESS OF BREATH, ( Reported) 1 PUFF = 90 MCG Amlodipine Besylate 5 Mg Tablet, 5 MG PO DAILY, (Reported) Atorvastatin Calcium 20 Mg Tablet, 20 MG PO 0300, (Reported) Carbamazepine 200 Mg Tablet, 200 MG PO 0800,2300,0300, (Reported) Carbamazepine 200 Mg Tablet, 400 MG PO 1500, (Reported) TAKES 2 (200 MG) TABLETS Cefdinir 300 Mg Capsule, 300 MG PO BID FILLED 08/03/17 #20 FOR A 10 DAY THERAPY Prescribed by: MICKY GENAO on 08/07/17 1144 Dexamethasone 4 Mg Tablet, PO UD, (Reported) TAKE 3 (4MG) TABLETS THE NIGHT BEFORE AND MORNING OF CHEMO Gabapentin 300 Mg Capsule, 300 MG PO 2300, (Reported) Gabapentin 600 Mg Tablet, 600 MG PO 0800,1500, (Reported) Lamotrigine 100 Mg Tablet, 100 MG PO 1500,2300, (Reported) Lamotrigine 25 Mg Tablet, 25 MG PO 1500,0300, (Reported) Lisinopril 20 Mg Tablet, 20 MG PO 0300, (Reported) Phenytoin Sodium Extended 100 Mg Capsule, 200 MG PO 1500, (Reported) TAKES 2 (100 MG) CAPSULES Phenytoin Sodium Extended 100 Mg Capsule, 100 MG PO 0800,2300, (Reported) Prednisone 10 Mg Tab, 60 MG PO DAILY@1200 Take 5 tabs(50mg)daily, decrease by 1 tab(10mg) every other day. Prescribed by: MICKY GENAO on 08/07/17 1147 Ropinirole HCl 0.25 Mg Tablet, 0.25 MG PO Q8H, (Reported) Tiotropium [place] 1 Inh Aerp, 1 CAP IH DAILY, (Reported) Patient Home Medication List Home Medication List Reviewed: No Past Tqbbamt-Tonrvg-Oormtl Hx Patient Social History Marrital Status: cohabiting Alcohol Use: Past History (HEAVY, REGULAR USE BY HX) Recreational Drug Use: Yes Smoking Status: Former Smoker (2 04/01 PPD, QUIT 05/2017) Type Used: Cigarettes 2nd Hand Smoke Exposure: No Physical Abuse Screen: No Sexual Abuse: No Recent Foreign Travel: No Contact w/other who traveled: No Recent Hopitalizations: Yes Recent Infectious Disease Expo: No Immunizations Up To Date Tetanus Booster (TDap): Unknown Pediatric: Yes Seasonal Allergies Seasonal Allergies: Yes Surgeries Yes Gallbladder Respiratory Yes (METASTATIC LUNG CANCER DX 05/2017) COPD, Emphysema, Pneumonia Currently Using CPAP: No Currently Using BIPAP: Yes Cardiovascular Yes High Cholesterol, Hypertension 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) Seizure Disorder Reproductive System Hx Reproductive Disorders: No Sexually Transmitted Disease: No HIV/AIDS: No Genitourinary No Gastrointestinal No Musculoskeletal Yes Arthritis Endocrine History of Endocrine Disorders: No HEENT History of HEENT Disorders: No Loss of Vision: Denies Hearing Impairment: Denies Cancer Yes Lung Did You Recieve Any Treatments: Yes Type of Treatment: Chemotherapy Psychosocial History of Psychiatric Problem: No Integumentary History of Skin or Integumenta: No Blood Transfusions History of Blood Disorders: No Adverse Reaction to a Blood Tr: No Family Medical History Significant Family History: No Pertinent Family Hx, Heart Disease Family Hx: Hypercholesterolemia 19 FATHER Hypertension 19 FATHER Constitutional: weakness EENTM: no symptoms reported Respiratory: dyspnea on exertion, short of breath Cardiovascular: no symptoms reported Gastrointestinal: no symptoms reported Genitourinary: no symptoms reported Physical Exam Vital Signs Vital Signs - First Documented 09/24/17 07:09 FiO2 40 Capillary Refill : Less Than 3 Seconds General Appearance: No Apparent Distress, Thin Eyes: Bilateral Eye Normal Inspection HEENT: Normal ENT Inspection Neck: Full Range of Motion, Normal Inspection Respiratory: No Accessory Muscle Use, No Respiratory Distress, Decreased Breath Sounds Cardiovascular: Regular Rate, Rhythm, No Murmur Gastrointestinal: Non Tender, Soft Assessment/Plan Assessment and Plan Pneumonia. COPD. Short of breath. Seizures. Metastatic lung cancer to bone Admission Diagnosis Admission Status: Inpatient Order (span 2 midnights) Reason for Inpatient Admission: Pneumonia. COPD. Metastatic cancer from lung. Seizure Clinical Quality Measures DVT/VTE Risk/Contraindication: Risk Factor Score Per Nursin RFS Level Per Nursing on Admit: 4+=Very High MICKY GENAO DO Sep 24, 2017 08:22
[2017-09-24] MEDS ORDERED: ATOR10TA66 PO (08:31)
[2017-09-24] MEDS ORDERED: MELO15TA39 PO (08:31)
[2017-09-24] MEDS ORDERED: FLUT1DIS26 INH (08:31)
[2017-09-24] MEDS ORDERED: HYDR-3812 PO (08:31)
[2017-09-24] MEDS ORDERED: PANT40TA3 PO (08:32)
[2017-09-24] MEDS ORDERED: CARBAMAZEPINE 200 MG PO SCH (09:15)
[2017-09-24] MEDS ORDERED: TIOTROPIUM BROMIDE (SPIRIVA) 5'S INHALER IH SCH (09:15)
[2017-09-24] MEDS ORDERED: NON-FORMULARY MEDICATION 1 EA EA (Amlodipine Besylate 5 MG) PO SCH (09:15)
[2017-09-24] MEDS ORDERED: NON-FORMULARY MEDICATION 1 EA EA (Hydrocodone/Acetaminophen (Hydrocodone-Acetamin 5-325 mg PO PRN (09:15)
[2017-09-24] MEDS ORDERED: NON-FORMULARY MEDICATION 1 EA EA (Phenytoin Sodium Extended 100 MG) PO SCH (09:15)
[2017-09-24] MEDS: AZITHROMYCIN 500 MG/NS 250 ML IVPB IV SCH ×2 (09:29)
[2017-09-24] MEDS: ENOXAPARIN 40 MG/0.4 ML (LOVENOX) SYR SC SCH (09:29)
[2017-09-24] MEDS ORDERED: CATHETER FLUSH 10 ML SYR IV PRN (09:45)
[2017-09-24] MEDS ORDERED: HYDROcodone/APAP 5 MG/325 MG (LORTAB) TAB PO PRN (09:45)
[2017-09-24] MEDS: GABAPENTIN 600 MG (NEURONTIN) TAB PO SCH ×2 (09:59→15:48)
[2017-09-24] MEDS: carBAMazepine 200 MG (TEGretol) TAB PO SCH ×3 (10:00→23:20)
[2017-09-24] MEDS: amLODIPine 5 MG (NORVASC) TAB PO SCH (10:00)
[2017-09-24] MEDS: PHENYTOIN 100 MG (DILANTIN) CAP PO SCH ×3 (10:00→23:20)
[2017-09-24] MEDS: rOPINIRole 0.25 MG (REQUIP) TAB PO SCH ×2 (10:00→18:00)
[2017-09-24] MEDS: RT-ALBUTEROL/IPRATROPIUM 3 ML (DUONEB) VIAL INH SCH ×4 (10:10→22:08)
[2017-09-24] MEDS ORDERED: LIDOCAINE PF 1% 2 ML AMP INJ ONE (10:14)
[2017-09-24] MEDS ORDERED: LIDOCAINE 4% INJ (XYLOCAINE) 5ML AMP INJ ONE (10:14)
[2017-09-24] MEDS ORDERED: LIDOCAINE JELLY 2% (XYLOCAINE) 30 ML TUBE TOP ONE (10:14)
[2017-09-24] MEDS: methylPREDNISolone 125 MG (Solu-MEDROL) VIAL IVP SCH ×3 (11:51→23:20)
[2017-09-24] MEDS: CATHETER FLUSH 10 ML SYR IV SCH ×2 (11:52→22:00)
[2017-09-24] MEDS ORDERED: LORazepam INJ 2 MG/ML (ATIVAN) VIAL ONE (13:29)
[2017-09-24] MEDS: LORazepam INJ 2 MG/ML (ATIVAN) VIAL IVP PRN ×2 (14:15→14:19)
[2017-09-24] MEDS ORDERED: carBAMazepine 200 MG (TEGretol) TAB PO NR (14:15)
[2017-09-24] MEDS ORDERED: NON-FORMULARY MEDICATION 1 EA EA (Meloxicam 15 MG) PO SCH (15:00)
[2017-09-24] MEDS ORDERED: NON-FORMULARY MEDICATION 1 EA EA (Phenytoin Sodium Extended 200 MG) PO SCH (15:00)
[2017-09-24] MEDS ORDERED: NON-FORMULARY MEDICATION 1 EA EA (Lamotrigine 100 MG) PO SCH (15:00)
[2017-09-24] MEDS ORDERED: LAMOTRIGINE 25 MG PO SCH (15:00)
[2017-09-24] MEDS ORDERED: CARBAMAZEPINE 400 MG PO SCH (15:00)
[2017-09-24] MEDS: MELOXICAM 7.5 MG (MOBIC) TABLET PO SCH (15:48)
[2017-09-24] MEDS: lamoTRIgine 25 MG (LaMICtal) TAB PO SCH (15:48)
--- NOTE | 2017-09-24 16:57 | CONSULTATION REPORT ---
DATE OF SERVICE: 09/24/2017 The patient is admitted to room ICU bed 3. REFERRING AND PRIMARY PHYSICIAN: Micky Feng DO. IMPRESSION: 1. A 62-year-old male admitted with increasing shortness of breath and found to have left lower lobe pneumonia as well as exacerbation of COPD. 2. 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 Currently, on palliative chemotherapy with carboplatin and paclitaxel regimen weekly. 3. History of seizure disorder since young age and on multiple medications. Recurrent seizures during the hospitalization. RECOMMENDATIONS: 1. Agree with management of pneumonia and exacerbation of COPD as you are doing. 2. With regards to the lung cancer and chemotherapy, I will hold further chemotherapy until he has recovered from the pneumonia. The patient was due to receive next cycle of chemotherapy next week and tomorrow on 09/25/2017 but I will postpone this. 3. Readjust seizure medication as he is continuing to have breakthrough seizures. 4. I will follow the patient with you. BRIEF HISTORY: The patient is a 62-year-old male who was diagnosed with nonsmall cell lung cancer with bone metastasis in early 2017. He was seen as an inpatient consultation for a pulmonary nodule in 05/2017 and underwent workup including biopsy with a diagnosis of metastatic nonsmall cell lung cancer. He presented to the emergency room with increasing shortness of breath, shaking chills and probable fever and was found to have a temperature of more than 101 degrees Fahrenheit with a new left lower lobe infiltrates. Admitted to the hospital for further management. Oncology consultation was requested for concurrent management. Today, the patient mentioned that he is feeling better and breathing better. No further temperature spikes were documented. Shortly after my visit, the nursing staff team found that he had a witnessed tonic clonic seizure. The patient is unable to answer questions regarding missing any of his anti-seizure medications. PAST MEDICAL HISTORY: Seizure disorder since the age of 6 years and being treated with multiple medications. He has history of a nonsmall cell lung cancer diagnosed few months ago, just metastatic to the bone. 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 History of COPD diagnosed 10 years ago. PAST SURGICAL HISTORY: Cholecystectomy two to three years ago and CT-guided biopsy of the bowel in early 2018 with a diagnosis of metastatic carcinoma. SOCIAL HISTORY: The patient is multiple times and . He is living with girlfriend of 16 years. He has four children from previous marriage. Two of his children live close by. He does not have any contact with the other two children. He worked at [employer] for 29 years and was laid off two to three years ago. He has 25-uwuo-mxyh history of tobacco use and quit smoking two years ago. He does not drink now, but has used alcohol regularly and quit using in the mid . He denied any recreational drug use. FAMILY HISTORY: Unremarkable with no major malignancies in the family. Father of coronary artery disease at the age of 33. PHYSICAL EXAMINATION: GENERAL: Today showed an elderly male, well-developed, well-nourished, awake and oriented and in no acute distress at the time of evaluation. VITAL SIGNS: Temperature was 98.9, pulse rate of 71, respirations 19, blood pressure 102/64, oxygen saturation was 95% on 5 liters of oxygen by nasal cannula. HEENT: Normocephalic with male pattern baldness, extraocular muscles intact, conjunctivae pink, oral mucosa moist. NECK: Supple, with no JVD. No cervical, supraclavicular or axillary lymphadenopathy palpable. CHEST: Symmetrical. Lungs with slightly diminished breath sounds bilaterally with rare wheeze heard. CARDIOVASCULAR: Regular in rate and rhythm without murmurs or gallops. ABDOMEN: Soft, nontender with no hepatosplenomegaly or other masses palpable. EXTREMITIES: Showed no edema. NEUROLOGIC: Grossly intact without focal motor deficits other than left hemiparesis from post-polio changes. CBC done at the time of admission showed WBC 6.6, hemoglobin 11.3, platelet count normal with neutrophil count 5.9 and lymphocyte count 0.4. Chemistry panel from the emergency room showed sodium level of 132 and chloride 97. BUN was 9, creatinine 0.67 with GFR more than 50 mL per minute. Nonfasting glucose was 119. Liver function studies were within normal limits. Chest x-ray done at the emergency room showed patchy airspace infiltrate in the left lower lobe, most consistent with pneumonia, which is new. Background COPD changes. Right-sided central line seen. Thank you for allowing me to participate in this patient's care. I will follow the patient with you. Job ID: [id number] DocumentID: [id number] Dictated Date: 09/24/2017 14:13:59 Literacy Coach Date: 09/24/2017 16:56:03 Dictated By: MD LAST MCKEON
[2017-09-24] MEDS ORDERED: TROUGH ORDER-PHARMACY XX NR (17:30)
[2017-09-24 18:26] LABS: ABG BASE EXCESS 3.3 MMOL/L (-2.5-2.5); ABG OXYGEN SATURATION 92 % (94-100); ABG PCO2 48 MMHG (35-45); ABG PH 7.39 (7.37-7.43); ABG PO2 62 MMHG (79-93); ABG TCO2 29.4 MMOL/L (21.0-31.0)
[2017-09-24 18:32] LABS: ALLENS TEST POSITIVE; INSPIRED O2 5 L; PATIENT TEMP 98.3; VENTILATOR NO
[2017-09-24] MEDS: CEFEPIME 2 GM/NS 50 ML IVPB IV SCH ×2 (19:04)
--- NOTE | 2017-09-24 19:12 | Diagnostic Imaging Report ---
PROCEDURE: CT head without contrast. TECHNIQUE: Multiple contiguous axial images were obtained through the brain without the use of intravenous contrast. INDICATION: Unresponsiveness. Seizures. Encephalopathy. COMPARISON: Comparison is made with a prior examination from April 30, 2017. FINDINGS: Asymmetric volume of the cerebral hemispheres is unchanged from the previous examination with ex vacuo dilatation of the right lateral ventricle and a relative paucity of sulcation within the right hemisphere. Left cerebral hemisphere is unremarkable. There is no acute hemorrhage. There is no mass effect or shift. There is no hydrocephalus. There is no evidence of an abnormal extra-axial fluid collection. There is no territorial loss of murphy-white differentiation demonstrated. There is no acute posterior fossa abnormality. Mastoids appear clear. Visualized paranasal sinuses are clear. Orbital contents are unremarkable. IMPRESSION: 1. Stable CT appearance of the head. No acute intracranial abnormality demonstrated. 2. Unchanged asymmetric volume of the cerebral hemispheres with ex vacuo dilatation of the right lateral ventricle and a relative paucity of sulcation within the right cerebral hemisphere relative to the left. Dictated by: Dictated on workstation # [id number]
[2017-09-24] MEDS ORDERED: NON-FORMULARY MEDICATION 1 EA EA (Fluticasone/Salmeterol (Advair 250-50 Diskus) 1 PUFF) INH SCH (21:00)
[2017-09-24] MEDS: RT-ADVAIR HFA 115/21 MCG PER PUFF IH SCH (22:08)
[2017-09-24] MEDS: GABAPENTIN 300 MG (NEURONTIN) CAP PO SCH (23:20)
[2017-09-25] VITALS (23 sets, daily range): BP systolic 90–144; BP diastolic 58–94
[2017-09-25] MEDS: RT-ALBUTEROL/IPRATROPIUM 3 ML (DUONEB) VIAL INH SCH ×6 (02:37→22:21)
[2017-09-25] MEDS: ATORVASTATIN 10 MG (LIPITOR) TABLET PO SCH (03:47)
[2017-09-25] MEDS: lisINopril 20 MG (PRINIVIL) TABLET PO SCH (03:47)
[2017-09-25] MEDS: carBAMazepine 200 MG (TEGretol) TAB PO SCH ×4 (03:47→23:01)
[2017-09-25] MEDS: lamoTRIgine 25 MG (LaMICtal) TAB PO SCH ×2 (03:47→14:45)
[2017-09-25] MEDS: rOPINIRole 0.25 MG (REQUIP) TAB PO SCH ×3 (03:47→18:15)
[2017-09-25 03:59] LABS: BASOPHILS % (AUTO) 0 % (0-10); EOSINOPHILS % (AUTO) 0 % (0-10); HEMATOCRIT 30 % (40-54); HEMOGLOBIN 10.6 G/DL (13.3-17.7); LYMPHOCYTES # (AUTO) 0.7 X 10^3 (1.0-4.0); LYMPHOCYTES % (AUTO) 9 % (12-44); MEAN CORPUSCULAR HEMOGLOBIN 30 PG (25-34); MEAN CORPUSCULAR HGB CONC 35 G/DL (32-36); MEAN CORPUSCULAR VOLUME 86 FL (80-99); MEAN PLATELET VOLUME 9.1 FL (7.4-10.4); MONOCYTES # (AUTO) 0.4 X 10^3 (0.0-1.0); MONOCYTES % (AUTO) 5 % (0-12); NEUTROPHILS # (AUTO) 6.7 X 10^3 (1.8-7.8); NEUTROPHILS % (AUTO) 86 % (42-75); PLATELET COUNT 196 10^3/uL (130-400); RED BLOOD COUNT 3.54 10^6/uL (4.35-5.85); RED CELL DISTRIBUTION WIDTH 15.1 % (10.0-14.5); WHITE BLOOD COUNT 7.7 10^3/uL (4.3-11.0)
[2017-09-25 04:26] LABS: BUN/CREATININE RATIO 28; CARBON DIOXIDE 23 MMOL/L (21-32); CHLORIDE 98 MMOL/L (98-107); CREATININE SERUM 0.78 MG/DL (0.60-1.30); POTASSIUM 4.2 MMOL/L (3.6-5.0); SODIUM 132 MMOL/L (135-145)
[2017-09-25 04:27] LABS: ALANINE AMINOTRANSFERASE 8 U/L (0-55); ALKALINE PHOSPHATASE 96 U/L (40-136); BILIRUBIN,TOTAL 0.3 MG/DL (0.1-1.0); GFR ESTIMATED > 60; GLUCOSE 183 MG/DL (70-105); MAGNESIUM 2.6 MG/DL (1.8-2.4); PHOSPHORUS 3.9 MG/DL (2.3-4.7); TOTAL PROTEIN 6.9 GM/DL (6.4-8.2)
--- NOTE | 2017-09-25 05:33 | Pulmonary Consultation ---
History of Present Illness History of Present Illness Date of Consultation 09/25/17 05:28 Time Seen by Provider: 05:28 Date of Admission History of Present Illness 62yo with hx of seizures, nonsmall cell lung cancer with mets to bone dx 05/2017 presented to ED secondary to progressive SOB, rigors, and fever (101 in ED). PT was being monitored in cardiac stepdown however started having tonic clonic seizures. PT was given Ativan which resolved seizures. Allergies and Home Medications Allergies Coded Allergies: aspirin (Unverified Allergy, Mild, DOES NOT WORK WELL W/ OTHER MEDS, ) ibuprofen (Unverified Allergy, Mild, 08/05/17) Home Medications Albuterol Sulfate 2.5 Mg/3 Ml Vial.neb, 2.5 MG NEB 5XD PRN for SHORTNESS OF BREATH, (Reported) Albuterol Sulfate 1 Puff Puff, 2 PUFF IH Q6H PRN for SHORTNESS OF BREATH, ( Reported) 1 PUFF = 90 MCG Amlodipine Besylate 5 Mg Tablet, 5 MG PO 0800, (Reported) Atorvastatin Calcium 10 Mg Tablet, 10 MG PO 0300, (Reported) Carbamazepine 200 Mg Tablet, 200 MG PO 0800,2300,0300, (Reported) Carbamazepine 200 Mg Tablet, 400 MG PO 1500, (Reported) TAKES 2 (200 MG) TABLETS Cefdinir 300 Mg Capsule, 300 MG PO BID Prescribed by: JAMIR ELLISON on 09/28/17 1034 Dexamethasone 4 Mg Tablet, PO UD, (Reported) TAKE 3 (4MG) TABLETS THE NIGHT BEFORE AND MORNING OF CHEMO Fluticasone/Salmeterol 1 Each Blst.w.dev, 1 PUFF INH BID, (Reported) Gabapentin 300 Mg Capsule, 300 MG PO 2300, (Reported) Gabapentin 600 Mg Tablet, 600 MG PO 0800,1500, (Reported) Hydrocodone/Acetaminophen 1 Each Tablet, 1 TAB PO Q6H PRN for PAIN-MODERATE, ( Reported) Lamotrigine 100 Mg Tablet, 100 MG PO 1500,2300, (Reported) Lamotrigine 25 Mg Tablet, 25 MG PO 1500,0300, (Reported) Lisinopril 20 Mg Tablet, 20 MG PO 0300, (Reported) Meloxicam 15 Mg Tablet, 15 MG PO 1500, (Reported) Phenytoin Sodium Extended 100 Mg Capsule, 200 MG PO 1500, (Reported) TAKES 2 (100 MG) CAPSULES Phenytoin Sodium Extended 100 Mg Capsule, 100 MG PO 0800,2300, (Reported) Ropinirole HCl 0.25 Mg Tablet, 0.25 MG PO Q8H, (Reported) Tiotropium [place] 1 Inh Aerp, 1 CAP IH DAILY, (Reported) Past Owhhicf-Ifqtfk-Lrjrco Hx Patient Social History Alcohol Use: Past History (HEAVY, REGULAR USE BY HX) Recreational Drug Use: Yes Smoking Status: Former Smoker (2 04/01 PPD, QUIT 05/2017) Type Used: Cigarettes 2nd Hand Smoke Exposure: No Recent Foreign Travel: No Contact w/Someone Who Travel: No Recent Infectious Disease Expo: No Recent Hopitalizations: Yes Immunizations Up To Date Tetanus Booster (TDap): Unknown PED Vaccines UTD: Yes Seasonal Allergies Seasonal Allergies: Yes Past Medical History Surgeries: Yes Gallbladder Respiratory: Yes (METASTATIC LUNG CANCER DX 05/2017) Asthma, Sleep Apnea, COPD Currently Using CPAP: No Currently Using BIPAP: Yes Cardiac: Yes High Cholesterol, Hypertension Neurological: Yes (post polio syndrome with left-sided deficits) Seizure Disorder Reproductive Disorders: No Sexually Transmitted Disease: No HIV/AIDS: No Genitourinary: No Gastrointestinal: No Musculoskeletal: Yes Arthritis Endocrine: No HEENT: No Loss of Vision: Denies Hearing Impairment: Denies Cancer: Yes Lung Did You Recieve Any Treatments: Yes What Type of Treatment Did You: Chemotherapy Psychosocial: No Integumentary: No Blood Disorders: No Adverse Reaction/Blood Tranf: No Family Medical History Hypercholesterolemia 19 FATHER Hypertension 19 FATHER No Pertinent Family Hx, Heart Disease Review of Systems Time Seen by Provider: 14:05 Exam Exam Vital Signs Date Time Temp Pulse Resp B/P (MAP) Pulse Ox O2 Delivery O2 Flow Rate FiO2 09/25/17 05:00 57 16 137/74 (95) 100 Nasal Cannula 5.00 09/25/17 04:00 Nasal Cannula 5.00 09/25/17 04:00 97.8 63 26 126/86 (99) 100 Nasal Cannula 5.00 09/25/17 03:00 65 18 134/94 (107) 100 Nasal Cannula 5.00 09/25/17 02:37 95 Nasal Cannula 4.00 09/25/17 02:00 51 13 90/59 (69) 98 Nasal Cannula 5.00 09/25/17 01:00 60 09/25/17 01:00 60 17 97/61 (73) 99 Nasal Cannula 5.00 09/25/17 00:00 98.0 56 15 111/64 (80) 97 Nasal Cannula 5.00 09/25/17 00:00 Nasal Cannula 5.00 09/24/17 23:00 59 22 104/63 (77) 96 Nasal Cannula 5.00 09/24/17 22:08 95 Nasal Cannula 2.00 09/24/17 22:00 62 16 98/52 (67) 95 Nasal Cannula 5.00 09/24/17 21:00 64 16 99/52 (68) 97 Nasal Cannula 5.00 09/24/17 20:00 98.0 64 16 96/55 (69) 97 Nasal Cannula 5.00 09/24/17 20:00 Nasal Cannula 5.00 09/24/17 19:00 73 09/24/17 19:00 73 25 112/66 (81) 91 Nasal Cannula 5.00 09/24/17 18:00 69 19 75/45 (55) 91 Nasal Cannula 5.00 09/24/17 17:00 74 13 102/66 (78) 95 Nasal Cannula 5.00 09/24/17 14:33 99 Nasal Cannula 5.00 09/24/17 13:00 62 09/24/17 12:00 Nasal Cannula 5.00 09/24/17 11:47 98.9 71 19 102/64 (77) 95 Nasal Cannula 5.00 09/24/17 10:10 97 Nasal Cannula 5.00 09/24/17 08:02 99.6 09/24/17 08:02 Nasal Cannula 5.00 09/24/17 08:02 Nasal Cannula 5.00 09/24/17 08:00 92 24 113/96 (102) 97 Nasal Cannula 5.00 09/24/17 07:29 96 Nasal Cannula 5.00 09/24/17 07:09 103 96 40 09/24/17 07:00 88 09/24/17 05:44 98 09/24/17 05:40 95 Nasal Cannula 5.00 09/24/17 05:40 98.9 I & O 09/25/17 07:00 Intake Total 1400 ml Output Total 1650 ml Balance -250 ml General Appearance: No Apparent Distress, Thin HEENT: Normal ENT Inspection Neck: Full Range of Motion, Normal Inspection Respiratory: No Accessory Muscle Use, No Respiratory Distress, Decreased Breath Sounds Cardiovascular: Regular Rate, Rhythm, No Murmur Capillary Refill: Less Than 3 Seconds Gastrointestinal: non tender, soft Extremity: Normal Capillary Refill, Normal Inspection, Normal Range of Motion Neurologic/Psychiatric: Alert, No Motor/Sensory Deficits, Normal Mood/Affect Skin: Normal Color, Warm/Dry Lymphatic: No Adenopathy Results Lab Laboratory Tests 09/24/17 03:35 09/24/17 06:51 09/25/17 03:48 Assessment/Plan Assessment/Plan Nonsmall cell lung cancer -oncology following Acute seizures -Continue to monitor -seizure precautions COPDCHARITO - RANI PACHECO DO Sep 25, 2017 05:33
[2017-09-25] MEDS: MAGNESIUM 1 GM/100 ML IVPB 100 ML IV SCH (05:46)
[2017-09-25] MEDS: POTASSIUM CL 10MEQ/50ML IVPB 50 ML IV SCH (05:46)
[2017-09-25] MEDS: KCL 20 MEQ TAB (K-DUR) PO SCH (05:47)
[2017-09-25] MEDS: CEFEPIME 2 GM/NS 50 ML IVPB IV SCH ×4 (06:31→18:11)
[2017-09-25] MEDS: methylPREDNISolone 125 MG (Solu-MEDROL) VIAL IVP SCH ×3 (06:31→18:11)
[2017-09-25] MEDS: CATHETER FLUSH 10 ML SYR IV SCH ×3 (06:32→23:02)
[2017-09-25] MEDS: RT-ADVAIR HFA 115/21 MCG PER PUFF IH SCH ×2 (06:47→19:04)
--- NOTE | 2017-09-25 07:41 | Progress Note (SOAP) ---
Subjective Time Seen by Provider: 07:40 Subjective/Events-last exam Patient had acute seizure yesterday. Patient hypotensive and unresponsive last night. Patient breathing better today. Increase the dose of Dilantin. Pneumonia. Non-small lung cell cancer. COPD with acute exacerbation. Seizures Focused Exam Lactate Level 09/24/17 06:51: Lactic Acid Level 0.85 Objective Exam Vital Signs Date Time Temp Pulse Resp B/P (MAP) Pulse Ox O2 Delivery O2 Flow Rate FiO2 09/25/17 06:47 100 Nasal Cannula 4.00 09/25/17 06:00 62 139/79 (99) 98 Nasal Cannula 5.00 09/25/17 05:00 57 16 137/74 (95) 100 Nasal Cannula 5.00 09/25/17 04:00 Nasal Cannula 5.00 09/25/17 04:00 97.8 63 26 126/86 (99) 100 Nasal Cannula 5.00 09/25/17 03:00 65 18 134/94 (107) 100 Nasal Cannula 5.00 09/25/17 02:37 95 Nasal Cannula 4.00 09/25/17 02:00 51 13 90/59 (69) 98 Nasal Cannula 5.00 09/25/17 01:00 60 09/25/17 01:00 60 17 97/61 (73) 99 Nasal Cannula 5.00 09/25/17 00:00 98.0 56 15 111/64 (80) 97 Nasal Cannula 5.00 09/25/17 00:00 Nasal Cannula 5.00 09/24/17 23:00 59 22 104/63 (77) 96 Nasal Cannula 5.00 09/24/17 22:08 95 Nasal Cannula 2.00 09/24/17 22:00 62 16 98/52 (67) 95 Nasal Cannula 5.00 09/24/17 21:00 64 16 99/52 (68) 97 Nasal Cannula 5.00 09/24/17 20:00 98.0 64 16 96/55 (69) 97 Nasal Cannula 5.00 09/24/17 20:00 Nasal Cannula 5.00 09/24/17 19:00 73 09/24/17 19:00 73 25 112/66 (81) 91 Nasal Cannula 5.00 09/24/17 18:00 69 19 75/45 (55) 91 Nasal Cannula 5.00 09/24/17 17:00 74 13 102/66 (78) 95 Nasal Cannula 5.00 09/24/17 14:33 99 Nasal Cannula 5.00 09/24/17 13:00 62 09/24/17 12:00 Nasal Cannula 5.00 09/24/17 11:47 98.9 71 19 102/64 (77) 95 Nasal Cannula 5.00 09/24/17 10:10 97 Nasal Cannula 5.00 09/24/17 08:02 99.6 09/24/17 08:02 Nasal Cannula 5.00 09/24/17 08:02 Nasal Cannula 5.00 09/24/17 08:00 92 24 113/96 (102) 97 Nasal Cannula 5.00 I & O 09/25/17 07:00 Intake Total 1600 ml Output Total 2000 ml Balance -400 ml Capillary Refill : Less Than 3 SecondsLess Than 3 Seconds General Appearance: No Apparent Distress, Thin HEENT: Normal ENT Inspection Neck: Full Range of Motion, Normal Inspection Respiratory: No Accessory Muscle Use, No Respiratory Distress Cardiovascular: Regular Rate, Rhythm, No Murmur Gastrointestinal: non tender, soft Results Lab Laboratory Tests 09/25/17 03:48 Laboratory Tests 09/24/17 18:20: Blood Gas Puncture Site LEFT RADIAL, Blood Gas Patient Temperature 98.3, Arterial Blood pH 7.39, Arterial Blood Partial Pressure CO2 48H, Arterial Blood Partial Pressure O2 62L, Arterial Blood HCO3 28H, Arterial Blood Total CO2 29.4 , Arterial Blood Oxygen Saturation 92L, Arterial Blood Base Excess 3.3H, Johan Test POSITIVE, Blood Gas Ventilator Setting NO, Blood Gas Inspired Oxygen 5 L 09/25/17 03:48: White Blood Count 7.7, Red Blood Count 3.54L, Hemoglobin 10.6L, Hematocrit 30L, Mean Corpuscular Volume 86, Mean Corpuscular Hemoglobin 30, Mean Corpuscular Hemoglobin Concent 35, Red Cell Distribution Width 15.1H, Platelet Count 196, Mean Platelet Volume 9.1, Neutrophils (%) (Auto) 86H, Lymphocytes (%) (Auto) 9L , Monocytes (%) (Auto) 5, Eosinophils (%) (Auto) 0, Basophils (%) (Auto) 0, Neutrophils # (Auto) 6.7, Lymphocytes # (Auto) 0.7L, Monocytes # (Auto) 0.4, Eosinophils # (Auto) 0.0, Basophils # (Auto) 0.0, Sodium Level 132L, Potassium Level 4.2, Chloride Level 98, Carbon Dioxide Level 23, Anion Gap 11, Blood Urea Nitrogen 22H, Creatinine 0.78, Estimat Glomerular Filtration Rate > 60, BUN/ Creatinine Ratio 28, Glucose Level 183H, Calcium Level 9.0, Phosphorus Level 3.9 , Magnesium Level 2.6H, Total Bilirubin 0.3, Aspartate Amino Transf (AST/SGOT) 12, Alanine Aminotransferase (ALT/SGPT) 8, Alkaline Phosphatase 96, Total Protein 6.9, Albumin 4.0 Assessment/Plan Assessment/Plan Assess & Plan/Chief Complaint Short of breath. Pneumonia. Non-small cell lung cancer. COPD with acute exacerbation. Seizures Clinical Quality Measures Admission Status Admission Dx Pneumonia. COPD. Short of breath. Seizures. Metastatic lung cancer to bone DVT/VTE Risk/Contraindication: Risk Factor Score Per Nursin RFS Level Per Nursing on Admit: 4+=Very High AMANDEEP GENAO DO Sep 25, 2017 07:41
[2017-09-25] MEDS ORDERED: PHENYTOIN 100 MG (DILANTIN) CAP PO SCH (08:00)
[2017-09-25] MEDS: PHENYTOIN 100 MG (DILANTIN) CAP PO SCH ×3 (08:08→23:01)
[2017-09-25] MEDS: GABAPENTIN 600 MG (NEURONTIN) TAB PO SCH ×2 (08:08→14:45)
[2017-09-25] MEDS: amLODIPine 5 MG (NORVASC) TAB PO SCH (08:08)
[2017-09-25] MEDS: ENOXAPARIN 40 MG/0.4 ML (LOVENOX) SYR SC SCH (08:12)
[2017-09-25] MEDS: AZITHROMYCIN 500 MG/NS 250 ML IVPB IV SCH ×2 (08:13)
[2017-09-25] MEDS: UMECLIDINIUM BROMIDE (INCRUSE ELLIPTA) 7'S IH SCH (10:27)
[2017-09-25] MEDS: MELOXICAM 7.5 MG (MOBIC) TABLET PO SCH (14:45)
--- NOTE | 2017-09-25 14:53 | Diagnostic Imaging Report ---
INDICATION: Pneumonia. Lung cancer. COPD. COMPARISON: 09/24/2017. FINDINGS: Single frontal radiographic view of the chest was obtained and demonstrates mild interval improved aeration of the left lung base. Patchy opacities in the right lung base are stable. There is no large effusion or pneumothorax on either side. Cardiac silhouette and pulmonary vasculature are stable. Right-sided internal jugular Port-A-Cath is noted and is in stable position. IMPRESSION: Improving infiltrate within the left lower lung field. Dictated by: Dictated on workstation # [id number]
[2017-09-25] MEDS: GABAPENTIN 300 MG (NEURONTIN) CAP PO SCH (23:01)
[2017-09-26] VITALS (15 sets, daily range): BP systolic 110–171; BP diastolic 55–92
[2017-09-26] MEDS: methylPREDNISolone 125 MG (Solu-MEDROL) VIAL IVP SCH (00:14)
[2017-09-26] MEDS ORDERED: PANTOPRAZOLE 40 MG (PROTONIX) TAB PO ONE (01:20)
[2017-09-26] MEDS ORDERED: CALCIUM CARBONATE 500 MG (TUMS) TAB.CHEW ONE (01:20)
[2017-09-26] MEDS: rOPINIRole 0.25 MG (REQUIP) TAB PO SCH ×3 (01:25→17:09)
[2017-09-26] MEDS: RT-ALBUTEROL/IPRATROPIUM 3 ML (DUONEB) VIAL INH SCH ×6 (02:50→22:07)
[2017-09-26] MEDS: ATORVASTATIN 10 MG (LIPITOR) TABLET PO SCH (03:05)
[2017-09-26] MEDS: lisINopril 20 MG (PRINIVIL) TABLET PO SCH (03:05)
[2017-09-26] MEDS: lamoTRIgine 25 MG (LaMICtal) TAB PO SCH ×2 (03:05→14:05)
[2017-09-26] MEDS: carBAMazepine 200 MG (TEGretol) TAB PO SCH ×4 (03:05→23:11)
[2017-09-26] MEDS ORDERED: CALCIUM CARBONATE 500 MG (TUMS) TAB.CHEW PO PRN (03:15)
[2017-09-26 04:30] LABS: BASOPHILS % (AUTO) 0 % (0-10); EOSINOPHILS % (AUTO) 0 % (0-10); HEMATOCRIT 30 % (40-54); HEMOGLOBIN 10.1 G/DL (13.3-17.7); LYMPHOCYTES # (AUTO) 0.4 X 10^3 (1.0-4.0); LYMPHOCYTES % (AUTO) 5 % (12-44); MEAN CORPUSCULAR HEMOGLOBIN 29 PG (25-34); MEAN CORPUSCULAR HGB CONC 34 G/DL (32-36); MEAN CORPUSCULAR VOLUME 86 FL (80-99); MONOCYTES # (AUTO) 0.4 X 10^3 (0.0-1.0); MONOCYTES % (AUTO) 5 % (0-12); NEUTROPHILS # (AUTO) 6.1 X 10^3 (1.8-7.8); NEUTROPHILS % (AUTO) 89 % (42-75); PLATELET COUNT 204 10^3/uL (130-400); RED BLOOD COUNT 3.48 10^6/uL (4.35-5.85); RED CELL DISTRIBUTION WIDTH 15.3 % (10.0-14.5); WHITE BLOOD COUNT 6.8 10^3/uL (4.3-11.0)
[2017-09-26 04:51] LABS: BUN/CREATININE RATIO 30; CALCIUM 9.3 MG/DL (8.5-10.1); CARBON DIOXIDE 25 MMOL/L (21-32); CHLORIDE 95 MMOL/L (98-107); GFR ESTIMATED > 60; GLUCOSE 166 MG/DL (70-105); MAGNESIUM 2.3 MG/DL (1.8-2.4); PHOSPHORUS 3.2 MG/DL (2.3-4.7); POTASSIUM 4.5 MMOL/L (3.6-5.0); SODIUM 130 MMOL/L (135-145)
[2017-09-26] MEDS: PANTOPRAZOLE 40 MG (PROTONIX) TAB PO SCH ×3 (05:13→21:12)
[2017-09-26] MEDS: POTASSIUM CL 10MEQ/50ML IVPB 50 ML IV SCH (05:22)
[2017-09-26] MEDS: MAGNESIUM 1 GM/100 ML IVPB 100 ML IV SCH (05:22)
[2017-09-26] MEDS: KCL 20 MEQ TAB (K-DUR) PO SCH (05:22)
--- NOTE | 2017-09-26 05:22 | Pulmonary Progress Note ---
Subjective Time Seen by Provider: 05:27 Subjective/Events-last exam improved however still SOB with exertion. No seizures last night. Focused Exam Lactate Level 09/24/17 06:51: Lactic Acid Level 0.85 Exam Exam Vital Signs Date Time Temp Pulse Resp B/P (MAP) Pulse Ox O2 Delivery O2 Flow Rate FiO2 09/26/17 04:00 Nasal Cannula 5.00 09/26/17 03:00 76 24 171/92 (118) 96 Nasal Cannula 5.00 09/26/17 02:51 97 Nasal Cannula 4.00 09/26/17 02:00 61 17 160/82 (108) 100 Nasal Cannula 5.00 09/26/17 01:00 60 15 141/72 (95) 99 Nasal Cannula 5.00 09/26/17 01:00 61 09/26/17 00:00 Nasal Cannula 5.00 09/26/17 00:00 98.0 60 16 132/76 (94) 98 Nasal Cannula 5.00 09/25/17 23:00 66 17 128/66 (86) 100 Nasal Cannula 5.00 09/25/17 22:22 98 Nasal Cannula 4.00 09/25/17 22:00 66 17 124/65 (84) 96 Nasal Cannula 5.00 09/25/17 21:00 71 16 115/64 (81) 98 Nasal Cannula 5.00 09/25/17 20:00 98.1 69 18 112/59 (76) 98 Nasal Cannula 5.00 09/25/17 20:00 Nasal Cannula 5.00 09/25/17 19:04 98 Nasal Cannula 4.00 09/25/17 19:00 69 09/25/17 19:00 70 19 121/64 (83) 96 Nasal Cannula 5.00 09/25/17 18:00 58 22 117/86 (96) 97 Nasal Cannula 5.00 09/25/17 17:00 68 23 116/64 (81) 97 Nasal Cannula 5.00 09/25/17 16:20 Nasal Cannula 5.00 09/25/17 16:00 98.4 81 14 125/58 (80) 98 Nasal Cannula 5.00 09/25/17 15:00 67 16 118/81 (93) 98 Nasal Cannula 5.00 09/25/17 14:38 98 Nasal Cannula 4.00 09/25/17 14:00 66 12 98 Nasal Cannula 5.00 09/25/17 13:08 71 09/25/17 13:00 64 15 118/62 (80) 98 Nasal Cannula 5.00 09/25/17 12:00 71 13 123/78 (93) 98 Nasal Cannula 5.00 09/25/17 11:17 Nasal Cannula 5.00 09/25/17 11:16 98.9 60 16 111/71 (84) 96 Nasal Cannula 5.00 09/25/17 10:27 97 Nasal Cannula 4.00 09/25/17 10:08 67 23 126/72 (90) 98 Nasal Cannula 5.00 09/25/17 09:00 64 19 118/77 (91) 96 Nasal Cannula 5.00 09/25/17 08:00 98.7 82 20 144/81 (102) 94 Nasal Cannula 5.00 09/25/17 08:00 Nasal Cannula 5.00 09/25/17 07:15 54 09/25/17 07:00 53 134/76 (95) 100 Nasal Cannula 5.00 09/25/17 06:47 100 Nasal Cannula 4.00 09/25/17 06:00 62 139/79 (99) 98 Nasal Cannula 5.00 I & O 09/26/17 07:00 Intake Total 1536 ml Output Total 200 ml Balance 1336 ml General Appearance: No Apparent Distress, Anxious, Chronically ill, Thin HEENT: Normal ENT Inspection Neck: Full Range of Motion, Normal Inspection Respiratory: No Accessory Muscle Use, No Respiratory Distress Cardiovascular: Regular Rate, Rhythm, No Murmur Capillary Refill: Less Than 3 Seconds Gastrointestinal: non tender, soft Extremity: Normal Capillary Refill, Non Tender, No Calf Tenderness, No Pedal Edema Neurologic/Psychiatric: Alert, Oriented x3, Depressed Affect Skin: Normal Color, Warm/Dry Lymphatic: No Adenopathy Results Lab Laboratory Tests 09/24/17 06:51 09/25/17 03:48 09/26/17 04:15 Assessment/Plan Assessment/Plan Nonsmall cell lung cancer -oncology following Acute seizures -Continue to monitor -seizure precautions Pneumonia LLL - present on admission -Change cefepime to omnicef -azithromycin COPDAE- SNVS. advair, -D/C solumedrol Will transfer to 4th floor with tele and seizure precautions. Continue to monitor. 233 RANI PACHECO DO Sep 26, 2017 05:22
[2017-09-26] MEDS: RT-ADVAIR HFA 115/21 MCG PER PUFF IH SCH ×2 (06:20→18:29)
[2017-09-26] MEDS: UMECLIDINIUM BROMIDE (INCRUSE ELLIPTA) 7'S IH SCH (06:21)
[2017-09-26] MEDS: CATHETER FLUSH 10 ML SYR IV SCH ×3 (06:25→21:11)
--- NOTE | 2017-09-26 07:07 | Diagnostic Imaging Report ---
EXAM: CHEST 1 VIEW, AP/PA ONLY INDICATION: Dyspnea. COMPARISON: Chest radiograph 09/25/2017. FINDINGS: Normal heart size and central pulmonary vascularity. Persistent atelectasis or infiltrate in the lung bases, right greater than left. No pleural effusion or pneumothorax. Right IJ tunneled port CVC tip mid SVC. IMPRESSION: Persistent bibasilar atelectasis or infiltrate, right greater than left. Dictated by: Dictated on workstation # [id number]
--- NOTE | 2017-09-26 07:44 | Progress Note (SOAP) ---
Subjective Time Seen by Provider: 07:40 Subjective/Events-last exam Patient feels 75 percent better. Patient did not have a good night sleep. Patient to be transferred to medical floor Focused Exam Lactate Level 09/24/17 06:51: Lactic Acid Level 0.85 Objective Exam Vital Signs Date Time Temp Pulse Resp B/P (MAP) Pulse Ox O2 Delivery O2 Flow Rate FiO2 09/26/17 06:18 100 Nasal Cannula 4.00 09/26/17 06:00 57 13 159/82 (107) 99 Nasal Cannula 5.00 09/26/17 05:00 63 18 154/77 (102) 98 Nasal Cannula 5.00 09/26/17 04:00 Nasal Cannula 5.00 09/26/17 04:00 62 14 140/65 (90) 97 Nasal Cannula 5.00 09/26/17 03:00 76 24 171/92 (118) 96 Nasal Cannula 5.00 09/26/17 02:51 97 Nasal Cannula 4.00 09/26/17 02:00 61 17 160/82 (108) 100 Nasal Cannula 5.00 09/26/17 01:00 60 15 141/72 (95) 99 Nasal Cannula 5.00 09/26/17 01:00 61 09/26/17 00:00 Nasal Cannula 5.00 09/26/17 00:00 98.0 60 16 132/76 (94) 98 Nasal Cannula 5.00 09/25/17 23:00 66 17 128/66 (86) 100 Nasal Cannula 5.00 09/25/17 22:22 98 Nasal Cannula 4.00 09/25/17 22:00 66 17 124/65 (84) 96 Nasal Cannula 5.00 09/25/17 21:00 71 16 115/64 (81) 98 Nasal Cannula 5.00 09/25/17 20:00 98.1 69 18 112/59 (76) 98 Nasal Cannula 5.00 09/25/17 20:00 Nasal Cannula 5.00 09/25/17 19:04 98 Nasal Cannula 4.00 09/25/17 19:00 69 09/25/17 19:00 70 19 121/64 (83) 96 Nasal Cannula 5.00 09/25/17 18:00 58 22 117/86 (96) 97 Nasal Cannula 5.00 09/25/17 17:00 68 23 116/64 (81) 97 Nasal Cannula 5.00 09/25/17 16:20 Nasal Cannula 5.00 09/25/17 16:00 98.4 81 14 125/58 (80) 98 Nasal Cannula 5.00 09/25/17 15:00 67 16 118/81 (93) 98 Nasal Cannula 5.00 09/25/17 14:38 98 Nasal Cannula 4.00 09/25/17 14:00 66 12 98 Nasal Cannula 5.00 09/25/17 13:08 71 09/25/17 13:00 64 15 118/62 (80) 98 Nasal Cannula 5.00 09/25/17 12:00 71 13 123/78 (93) 98 Nasal Cannula 5.00 09/25/17 11:17 Nasal Cannula 5.00 09/25/17 11:16 98.9 60 16 111/71 (84) 96 Nasal Cannula 5.00 09/25/17 10:27 97 Nasal Cannula 4.00 09/25/17 10:08 67 23 126/72 (90) 98 Nasal Cannula 5.00 09/25/17 09:00 64 19 118/77 (91) 96 Nasal Cannula 5.00 09/25/17 08:00 98.7 82 20 144/81 (102) 94 Nasal Cannula 5.00 09/25/17 08:00 Nasal Cannula 5.00 I & O 09/26/17 07:00 Intake Total 1936 ml Output Total 200 ml Balance 1736 ml Capillary Refill : Less Than 3 SecondsLess Than 3 Seconds General Appearance: No Apparent Distress, Thin HEENT: Normal ENT Inspection Neck: Normal Inspection, Non Tender Respiratory: Lungs Clear, No Accessory Muscle Use, No Respiratory Distress, Decreased Breath Sounds Cardiovascular: Regular Rate, Rhythm, No Murmur Gastrointestinal: non tender, soft Results Lab Laboratory Tests 09/26/17 04:15 Laboratory Tests 09/26/17 04:15: White Blood Count 6.8, Red Blood Count 3.48L, Hemoglobin 10.1L, Hematocrit 30L, Mean Corpuscular Volume 86, Mean Corpuscular Hemoglobin 29, Mean Corpuscular Hemoglobin Concent 34, Red Cell Distribution Width 15.3H, Platelet Count 204, Mean Platelet Volume 9.0, Neutrophils (%) (Auto) 89H, Lymphocytes (%) (Auto) 5L , Monocytes (%) (Auto) 5, Eosinophils (%) (Auto) 0, Basophils (%) (Auto) 0, Neutrophils # (Auto) 6.1, Lymphocytes # (Auto) 0.4L, Monocytes # (Auto) 0.4, Eosinophils # (Auto) 0.0, Basophils # (Auto) 0.0, Sodium Level 130L, Potassium Level 4.5, Chloride Level 95L, Carbon Dioxide Level 25, Anion Gap 10, Blood Urea Nitrogen 21H, Creatinine 0.70, Estimat Glomerular Filtration Rate > 60, BUN /Creatinine Ratio 30, Glucose Level 166H, Calcium Level 9.3, Phosphorus Level 3.2, Magnesium Level 2.3 Assessment/Plan Assessment/Plan Assess & Plan/Chief Complaint Short of breath. Pneumonia. Non-small cell lung cancer. COPD with acute exacerbation. Seizures. . 09/26/17. Short of breath. Pneumonia. Non-small cell lung cancer. COPD with acute exacerbation. Seizures. Lung cancer. Transfer patient to medical floor Clinical Quality Measures Admission Status Admission Dx Pneumonia. COPD. Short of breath. Seizures. Metastatic lung cancer to bone DVT/VTE Risk/Contraindication: Risk Factor Score Per Nursin RFS Level Per Nursing on Admit: 4+=Very High AMANDEEP GENAO DO Sep 26, 2017 07:44
[2017-09-26] MEDS: amLODIPine 5 MG (NORVASC) TAB PO SCH (08:11)
[2017-09-26] MEDS: GABAPENTIN 600 MG (NEURONTIN) TAB PO SCH ×2 (08:11→14:05)
[2017-09-26] MEDS: PHENYTOIN 100 MG (DILANTIN) CAP PO SCH ×3 (08:11→23:10)
[2017-09-26] MEDS: CEFDINIR 300 MG (OMNICEF) CAP PO SCH ×2 (08:11→21:11)
[2017-09-26] MEDS: ENOXAPARIN 40 MG/0.4 ML (LOVENOX) SYR SC SCH (08:11)
[2017-09-26] MEDS: MELOXICAM 7.5 MG (MOBIC) TABLET PO SCH (14:06)
[2017-09-26] MEDS: GABAPENTIN 300 MG (NEURONTIN) CAP PO SCH (23:11)
[2017-09-27 00:06] VITALS: BP 126/66
[2017-09-27] MEDS: RT-ALBUTEROL/IPRATROPIUM 3 ML (DUONEB) VIAL INH SCH ×4 (02:09→19:08)
[2017-09-27] MEDS: rOPINIRole 0.25 MG (REQUIP) TAB PO SCH ×3 (02:36→17:43)
[2017-09-27] MEDS: lisINopril 20 MG (PRINIVIL) TABLET PO SCH (02:37)
[2017-09-27] MEDS: carBAMazepine 200 MG (TEGretol) TAB PO SCH ×4 (02:37→22:13)
[2017-09-27] MEDS: lamoTRIgine 25 MG (LaMICtal) TAB PO SCH ×2 (02:37→14:12)
[2017-09-27] MEDS: ATORVASTATIN 10 MG (LIPITOR) TABLET PO SCH (02:37)
[2017-09-27 04:22] VITALS: BP 96/50
[2017-09-27 06:10] LABS: BASOPHILS % (AUTO) 0 % (0-10); EOSINOPHILS % (AUTO) 0 % (0-10); HEMATOCRIT 29 % (40-54); HEMOGLOBIN 10.1 G/DL (13.3-17.7); LYMPHOCYTES % (AUTO) 24 % (12-44); MEAN CORPUSCULAR HEMOGLOBIN 30 PG (25-34); MEAN CORPUSCULAR HGB CONC 34 G/DL (32-36); MEAN CORPUSCULAR VOLUME 87 FL (80-99); MEAN PLATELET VOLUME 9.3 FL (7.4-10.4); MONOCYTES # (AUTO) 0.8 X 10^3 (0.0-1.0); MONOCYTES % (AUTO) 19 % (0-12); NEUTROPHILS # (AUTO) 2.5 X 10^3 (1.8-7.8); NEUTROPHILS % (AUTO) 57 % (42-75); PLATELET COUNT 224 10^3/uL (130-400); RED CELL DISTRIBUTION WIDTH 15.2 % (10.0-14.5); WHITE BLOOD COUNT 4.4 10^3/uL (4.3-11.0)
[2017-09-27 06:27] LABS: PHOSPHORUS 3.6 MG/DL (2.3-4.7)
[2017-09-27] MEDS: CATHETER FLUSH 10 ML SYR IV SCH ×3 (06:30→22:15)
[2017-09-27 06:31] LABS: ALANINE AMINOTRANSFERASE 7 U/L (0-55); ALBUMIN 3.6 GM/DL (3.2-4.5); ALKALINE PHOSPHATASE 84 U/L (40-136); BILIRUBIN,TOTAL 0.2 MG/DL (0.1-1.0); BUN/CREATININE RATIO 20; CALCIUM 8.9 MG/DL (8.5-10.1); CARBON DIOXIDE 25 MMOL/L (21-32); CHLORIDE 99 MMOL/L (98-107); CREATININE SERUM 0.69 MG/DL (0.60-1.30); GFR ESTIMATED > 60; GLUCOSE 104 MG/DL (70-105); POTASSIUM 4.1 MMOL/L (3.6-5.0); SODIUM 134 MMOL/L (135-145)
--- NOTE | 2017-09-27 06:50 | Pulmonary Progress Note ---
Subjective Time Seen by Provider: 06:49 Subjective/Events-last exam No complications noted. Focused Exam Lactate Level 09/24/17 06:51: Lactic Acid Level 0.85 Exam Exam Vital Signs Date Time Temp Pulse Resp B/P (MAP) Pulse Ox O2 Delivery O2 Flow Rate FiO2 09/27/17 04:22 98.2 58 20 96/50 (65) 95 Nasal Cannula 4.00 09/27/17 04:05 Nasal Cannula 5.00 09/27/17 02:10 94 Nasal Cannula 4.00 09/27/17 01:00 57 09/27/17 00:20 Nasal Cannula 5.00 09/27/17 00:06 97.5 62 20 126/66 (86) 97 Nasal Cannula 4.00 09/26/17 22:08 96 Nasal Cannula 4.00 09/26/17 19:32 98.1 63 20 110/55 (73) 98 Nasal Cannula 4.00 09/26/17 19:13 62 09/26/17 18:31 97 Nasal Cannula 4.00 09/26/17 15:30 98.4 62 20 119/66 (83) 97 Nasal Cannula 4.00 09/26/17 14:44 96 Nasal Cannula 4.00 09/26/17 13:00 59 09/26/17 12:00 97.7 60 18 114/61 (78) 98 Nasal Cannula 4.00 09/26/17 10:40 98 Nasal Cannula 4.00 09/26/17 10:09 98.8 61 20 137/76 (96) 99 Nasal Cannula 5.00 09/26/17 10:00 Nasal Cannula 5.00 09/26/17 09:00 62 13 127/74 (91) 98 Nasal Cannula 5.00 09/26/17 08:20 Nasal Cannula 5.00 09/26/17 08:15 98.4 82 20 142/74 (96) 95 Nasal Cannula 5.00 09/26/17 08:00 58 13 128/79 (95) 100 Nasal Cannula 5.00 09/26/17 07:00 62 15 148/82 (104) 98 Nasal Cannula 5.00 09/26/17 07:00 67 I & O 09/27/17 07:00 Intake Total 1780 ml Balance 1780 ml General Appearance: No Apparent Distress, Thin HEENT: Normal ENT Inspection Neck: Normal Inspection, Non Tender Respiratory: Lungs Clear, No Accessory Muscle Use, No Respiratory Distress, Decreased Breath Sounds Cardiovascular: Regular Rate, Rhythm, No Murmur Capillary Refill: Less Than 3 Seconds Gastrointestinal: non tender, soft Extremity: Normal Capillary Refill, Non Tender, No Calf Tenderness, No Pedal Edema Neurologic/Psychiatric: Alert, Oriented x3, Depressed Affect Skin: Normal Color, Warm/Dry Lymphatic: No Adenopathy Results Lab Laboratory Tests 09/26/17 04:15 09/27/17 05:15 Assessment/Plan Assessment/Plan Nonsmall cell lung cancer -oncology following Acute seizures -Continue to monitor -seizure precautions Pneumonia LLL - present on admission - omnicef x 5 more days then D/C COPDAE- [facility]. adv, -D/C solumedrol labs and radiology reviewed. 232 RANI PACHECO DO Sep 27, 2017 06:50
[2017-09-27] MEDS: UMECLIDINIUM BROMIDE (INCRUSE ELLIPTA) 7'S IH SCH (07:19)
[2017-09-27] MEDS: RT-ADVAIR HFA 115/21 MCG PER PUFF IH SCH ×2 (07:19→19:08)
[2017-09-27 08:00] VITALS: BP 107/61
[2017-09-27] MEDS: CEFDINIR 300 MG (OMNICEF) CAP PO SCH ×2 (08:34→20:15)
[2017-09-27] MEDS: GABAPENTIN 600 MG (NEURONTIN) TAB PO SCH ×2 (08:34→14:12)
[2017-09-27] MEDS: amLODIPine 5 MG (NORVASC) TAB PO SCH (08:35)
[2017-09-27] MEDS: PHENYTOIN 100 MG (DILANTIN) CAP PO SCH ×3 (08:35→22:13)
[2017-09-27] MEDS: PANTOPRAZOLE 40 MG (PROTONIX) TAB PO SCH ×2 (08:35→20:15)
[2017-09-27] MEDS: ENOXAPARIN 40 MG/0.4 ML (LOVENOX) SYR SC SCH (08:35)
--- NOTE | 2017-09-27 10:00 | Diagnostic Imaging Report ---
INDICATION: COPD. COMPARISON: 09/26/2017. FINDINGS: Frontal and lateral views of the chest demonstrate hyperinflation with scarring in both bases. There is no acute infiltrate. No pneumothorax or effusion is seen. The heart is prominent without pulmonary edema. The Port-A-Cath is stable. IMPRESSION: COPD with focal scarring in both bases. No acute infiltrate identified. Dictated by: Dictated on workstation # [id number]
--- NOTE | 2017-09-27 11:45 | Progress Note-Hospitalist ---
Subjective HPI/CC On Admission Date Seen by Provider: Sep 27, 2017 Time Seen by Provider: 10:30 Subjective/Events-last exam Patient did want to go home and I walked in the room and he felt comfortable with that but apparently he realized he had no food in the house and director of social work provided gas voucher yesterday so can only recommend [employer] for food and then he did not want to go home after all. Patient ambulating well Urinating well Bowels are moving Eating and drinking well Cough is improved Tolerating medications Review of Systems General: Fatigue Pulmonary: Cough Objective Exam Vital Signs Vital Signs Date Time Temp Pulse Resp B/P (MAP) Pulse Ox O2 Delivery O2 Flow Rate FiO2 09/27/17 10:59 96 Nasal Cannula 4.00 09/27/17 08:00 98.0 64 18 107/61 (76) 09/24/17 07:09 40 Capillary Refill : Less Than 3 SecondsLess Than 3 Seconds General Appearance: No Apparent Distress, WD/WN Respiratory: Crackles, Decreased Breath Sounds, Wheezing Cardiovascular: Regular Rate, Rhythm, No Edema, No Gallop, No JVD, No Murmur, Normal Peripheral Pulses Neurologic/Psychiatric: Alert, Oriented x3, No Motor/Sensory Deficits, Normal Mood/Affect Results/Procedures Lab Laboratory Tests 09/27/17 05:15 Patient resulted labs reviewed. Assessment/Plan Assessment and Plan Assess & Plan/Chief Complaint Assessment: Pneumonia Non-small cell lung cancer AECOPD Seizure d/o Plan: Keep another day until his girlfriend can get food in the house Pt has own O2 at home Diagnosis/Problems Diagnosis/Problems (1) Pneumonia, community acquired Status: Acute (2) COPD exacerbation Status: Acute (3) Lung cancer metastatic to bone Status: Acute (4) Seizure disorder Status: Chronic (5) Poor social situation Status: Chronic (6) Extreme poverty Status: Chronic Clinical Quality Measures DVT/VTE Risk/Contraindication: Risk Factor Score Per Nursin RFS Level Per Nursing on Admit: 4+=Very High JAMIR ELLISON DO Sep 27, 2017 11:45
[2017-09-27 12:00] VITALS: BP 102/59
[2017-09-27] MEDS: MELOXICAM 7.5 MG (MOBIC) TABLET PO SCH (14:12)
[2017-09-27 15:40] VITALS: BP 127/58
[2017-09-27 19:45] VITALS: BP 104/57
[2017-09-27] MEDS: GABAPENTIN 300 MG (NEURONTIN) CAP PO SCH (22:13)
[2017-09-28 00:16] VITALS: BP 125/58
[2017-09-28] MEDS: rOPINIRole 0.25 MG (REQUIP) TAB PO SCH ×2 (02:03→09:16)
[2017-09-28] MEDS: ATORVASTATIN 10 MG (LIPITOR) TABLET PO SCH (02:03)
[2017-09-28] MEDS: lamoTRIgine 25 MG (LaMICtal) TAB PO SCH ×2 (02:03→14:00)
[2017-09-28] MEDS: lisINopril 20 MG (PRINIVIL) TABLET PO SCH (02:03)
[2017-09-28] MEDS: carBAMazepine 200 MG (TEGretol) TAB PO SCH ×3 (02:03→14:00)
[2017-09-28 04:30] VITALS: BP 129/60
[2017-09-28] MEDS: CATHETER FLUSH 10 ML SYR IV SCH ×2 (06:05→13:27)
[2017-09-28 06:16] LABS: BASOPHILS % (AUTO) 1 % (0-10); EOSINOPHILS % (AUTO) 0 % (0-10); HEMATOCRIT 28 % (40-54); HEMOGLOBIN 9.5 G/DL (13.3-17.7); LYMPHOCYTES # (AUTO) 0.9 X 10^3 (1.0-4.0); LYMPHOCYTES % (AUTO) 22 % (12-44); MEAN CORPUSCULAR HEMOGLOBIN 29 PG (25-34); MEAN CORPUSCULAR HGB CONC 34 G/DL (32-36); MEAN CORPUSCULAR VOLUME 87 FL (80-99); MEAN PLATELET VOLUME 8.5 FL (7.4-10.4); MONOCYTES # (AUTO) 0.8 X 10^3 (0.0-1.0); MONOCYTES % (AUTO) 19 % (0-12); NEUTROPHILS # (AUTO) 2.4 X 10^3 (1.8-7.8); NEUTROPHILS % (AUTO) 58 % (42-75); PLATELET COUNT 240 10^3/uL (130-400); RED BLOOD COUNT 3.26 10^6/uL (4.35-5.85); RED CELL DISTRIBUTION WIDTH 15.3 % (10.0-14.5); WHITE BLOOD COUNT 4.2 10^3/uL (4.3-11.0)
[2017-09-28 06:35] LABS: BUN/CREATININE RATIO 20; CALCIUM 8.6 MG/DL (8.5-10.1); CARBON DIOXIDE 27 MMOL/L (21-32); CHLORIDE 97 MMOL/L (98-107); CREATININE SERUM 0.66 MG/DL (0.60-1.30); GFR ESTIMATED > 60; GLUCOSE 93 MG/DL (70-105); MAGNESIUM 2.2 MG/DL (1.8-2.4); PHOSPHORUS 3.4 MG/DL (2.3-4.7); POTASSIUM 4.1 MMOL/L (3.6-5.0); SODIUM 133 MMOL/L (135-145)
[2017-09-28 08:00] VITALS: BP 108/52
[2017-09-28] MEDS: ENOXAPARIN 40 MG/0.4 ML (LOVENOX) SYR SC SCH (08:02)
[2017-09-28] MEDS: PANTOPRAZOLE 40 MG (PROTONIX) TAB PO SCH (08:02)
[2017-09-28] MEDS: CEFDINIR 300 MG (OMNICEF) CAP PO SCH (08:03)
[2017-09-28] MEDS: amLODIPine 5 MG (NORVASC) TAB PO SCH (08:03)
[2017-09-28] MEDS: PHENYTOIN 100 MG (DILANTIN) CAP PO SCH ×2 (08:03→14:00)
[2017-09-28] MEDS: GABAPENTIN 600 MG (NEURONTIN) TAB PO SCH ×2 (08:03→14:00)
[2017-09-28] MEDS: RT-ALBUTEROL/IPRATROPIUM 3 ML (DUONEB) VIAL INH SCH ×2 (08:31→15:17)
[2017-09-28] MEDS: RT-ADVAIR HFA 115/21 MCG PER PUFF IH SCH (08:31)
[2017-09-28] MEDS: UMECLIDINIUM BROMIDE (INCRUSE ELLIPTA) 7'S IH SCH (08:33)
[2017-09-28] MEDS ORDERED: CEFD300C3 PO (10:34)
--- NOTE | 2017-09-28 10:35 | Discharge Summary-Hospitalist ---
Diagnosis/Chief Complaint Date of Admission Sep 24, 2017 at 04:46 Date of Discharge Discharge Date: Sep 28, 2017 Discharge Diagnosis (1) Pneumonia, community acquired Status: Acute (2) COPD exacerbation Status: Acute (3) Lung cancer metastatic to bone Status: Acute (4) Seizure disorder Status: Chronic (5) Poor social situation Status: Chronic (6) Extreme poverty Status: Chronic Discharge Summary Discharge Physical Exam Allergies: Coded Allergies: aspirin (Unverified Allergy, Mild, DOES NOT WORK WELL W/ OTHER MEDS, ) ibuprofen (Unverified Allergy, Mild, 08/05/17) Vitals & I&Os Vital Signs Date Time Temp Pulse Resp B/P (MAP) Pulse Ox O2 Delivery O2 Flow Rate FiO2 09/28/17 08:34 94 Nasal Cannula 4.00 09/28/17 08:00 98.4 65 18 108/52 (70) 09/27/17 13:42 38 General Appearance: Alert, Oriented X3, Cooperative Respiratory: Clear to Auscultation, Other (subtle crackles KESHAV otherwise clear) Cardiovascular: Regular Rate Neuro: Normal Gait, Normal Speech, Strength at 5/5 X4 Ext Psych/Mental Status: Mental Status NL, Mood NL Hospital Course Hospital course: Patient had an uneventful hospital course he was admitted after a seizure and noted to have hypoxia found to have pneumonia and history of lung cancer was presumed postobstructive. IV steroids were given with good results with resolution of exacerbation of COPD. Patient was switched to oral antibiotic Ceftin ear twice daily. Patient had home oxygen already set up at home along with nebulizer treatments and he was originally set to be discharged on Friday but he did not have any food in the house and was waiting on food stamps tomorrow in order to restock his food pantry at home. His girlfriend will take care of him when he gets home. He will have breakfast and lunch here today there will be a sandwich given to him to take home with him to eat for supper and he will have food stamps tomorrow morning to go to the store. Labs (last 24 hrs) Laboratory Tests 09/28/17 06:08: White Blood Count 4.2L, Red Blood Count 3.26L, Hemoglobin 9.5L, Hematocrit 28L, Mean Corpuscular Volume 87, Mean Corpuscular Hemoglobin 29, Mean Corpuscular Hemoglobin Concent 34, Red Cell Distribution Width 15.3H, Platelet Count 240, Mean Platelet Volume 8.5, Neutrophils (%) (Auto) 58, Lymphocytes (%) (Auto) 22, Monocytes (%) (Auto) 19H, Eosinophils (%) (Auto) 0, Basophils (%) (Auto) 1, Neutrophils # (Auto) 2.4, Lymphocytes # (Auto) 0.9L, Monocytes # (Auto) 0.8, Eosinophils # (Auto) 0.0, Basophils # (Auto) 0.0, Sodium Level 133L, Potassium Level 4.1, Chloride Level 97L, Carbon Dioxide Level 27, Anion Gap 9, Blood Urea Nitrogen 13, Creatinine 0.66, Estimat Glomerular Filtration Rate > 60, BUN/ Creatinine Ratio 20, Glucose Level 93, Calcium Level 8.6, Phosphorus Level 3.4, Magnesium Level 2.2 Microbiology 09/24/17 Blood Culture - Preliminary, Resulted No growth Patient resulted labs reviewed. Pending Labs Laboratory Tests 09/28/17 06:08: White Blood Count 4.2, Red Blood Count 3.26, Hemoglobin 9.5, Hematocrit 28, Mean Corpuscular Volume 87, Mean Corpuscular Hemoglobin 29, Mean Corpuscular Hemoglobin Concent 34, Red Cell Distribution Width 15.3, Platelet Count 240, Mean Platelet Volume 8.5, Neutrophils (%) (Auto) 58, Lymphocytes (%) (Auto) 22, Monocytes (%) (Auto) 19, Eosinophils (%) (Auto) 0, Basophils (%) (Auto) 1, Neutrophils # (Auto) 2.4, Lymphocytes # (Auto) 0.9, Monocytes # (Auto) 0.8, Eosinophils # (Auto) 0.0, Basophils # (Auto) 0.0, Sodium Level 133, Potassium Level 4.1, Chloride Level 97, Carbon Dioxide Level 27, Anion Gap 9, Blood Urea Nitrogen 13, Creatinine 0.66, Estimat Glomerular Filtration Rate > 60, BUN/ Creatinine Ratio 20, Glucose Level 93, Calcium Level 8.6, Phosphorus Level 3.4, Magnesium Level 2.2 Discussion & Recommendations Discharge Planning: <30 minutes discharge planning Discharge Home Medications: Active Scripts Active Cefdinir 300 Mg Capsule 300 Mg PO BID Reported Advair 250-50 Diskus (Fluticasone/Salmeterol) 1 Each Blst.w.dev 1 Puff INH BID Atorvastatin Calcium 10 Mg Tablet 10 Mg PO 0300 Meloxicam 15 Mg Tablet 15 Mg PO 1500 Hydrocodone-Acetamin 5-325 mg (Hydrocodone/Acetaminophen) 1 Each Tablet 1 Tab PO Q6H PRN Ropinirole HCl 0.25 Mg Tablet 0.25 Mg PO Q8H Dexamethasone 4 Mg Tablet PO UD TAKE 3 (4MG) TABLETS THE NIGHT BEFORE AND MORNING OF CHEMO Carbamazepine 200 Mg Tablet 400 Mg PO 1500 TAKES 2 (200 MG) TABLETS Amlodipine Besylate 5 Mg Tablet 5 Mg PO 0800 Lamotrigine 25 Mg Tablet 25 Mg PO 1500,0300 Lisinopril 20 Mg Tablet 20 Mg PO 0300 Proair Hfa (Albuterol Sulfate) 1 Puff Puff 2 Puff IH Q6H PRN 1 PUFF = 90 MCG Spiriva (Tiotropium [place]) 1 Inh Aerp 1 Cap IH DAILY Albuterol Sulfate 2.5 Mg/3 Ml Vial.neb 2.5 Mg NEB 5XD PRN Tegretol (Carbamazepine) 200 Mg Tablet 200 Mg PO 0800,2300,0300 Phenytoin Sodium Extended 100 Mg Capsule 100 Mg PO 0800,2300 Phenytoin Sodium Extended 100 Mg Capsule 200 Mg PO 1500 TAKES 2 (100 MG) CAPSULES Gabapentin 600 Mg Tablet 600 Mg PO 0800,1500 Gabapentin 300 Mg Capsule 300 Mg PO 2300 Lamotrigine 100 Mg Tablet 100 Mg PO 1500,2300 Instructions to patient/family Please see electronic discharge instructions given to patient. Clinical Quality Measures DVT/VTE Risk/Contraindication: Risk Factor Score Per Nursin RFS Level Per Nursing on Admit: 4+=Very High JAMIR ELLISON DO Sep 28, 2017 10:35
[2017-09-28] MEDS: MELOXICAM 7.5 MG (MOBIC) TABLET PO SCH (14:00)
== END 2017-09-28 15:52 | disposition home or self-care (01) | DRG 194 ==
LOC: EDUNIT# 03:02 → ER 03:03 → ICU 04:46 → 4TH 09-26 10:00
PROVIDERS: ADMIT Family Medicine; ATTEND Family Medicine
DX: J18.9 Pneumonia, unspecified organism (principal); C34.90 Malignant neoplasm of unspecified part of unspecified bronchus or lung; C79.51 Secondary malignant neoplasm of bone; J43.9 Emphysema, unspecified; G40.409 Other generalized epilepsy and epileptic syndromes, not intractable, without status epilepticus; G47.30 Sleep apnea, unspecified; J30.2 Other seasonal allergic rhinitis; E78.00 Pure hypercholesterolemia, unspecified; I10 Essential (primary) hypertension; M19.91 Primary osteoarthritis, unspecified site; G14 Postpolio syndrome; Z99.81 Dependence on supplemental oxygen; Z87.891 Personal history of nicotine dependence; Z79.899 Other long term (current) drug therapy; Z59.5 Extreme poverty
CPT/HCPCS: 36415; 70450; 71045; 71046; 80048; 80053; 80156; 80185; 82805; 83605; 83735; 83880; 84100; 84145; 84484; 85007; 85025; 85027; 85610; 85730; 87040; 93005; 93041; 94640; 94664; 94760; 96365; 96375

== ENCOUNTER → 2017-10-07 | Outpatient (CLI) | payer MEDICAID ==
[~2017-10-07] MED LIST changes: +FLUT1DIS26 INH; +HYDR-3812 PO
== END ==
LOC: LAB 12:07
PROVIDERS: ATTEND Family Medicine
DX: B35.1 Tinea unguium (principal)
CPT/HCPCS: 87220

== ENCOUNTER → 2017-10-30 | Outpatient (CLI) | payer MEDICAID ==
--- NOTE | 2017-10-30 13:38 | Diagnostic Imaging Report ---
PROCEDURE: CT chest with contrast, CT abdomen and pelvis with and without contrast. INDICATION: Kfu-[id number]-vmih lung cancer. On chemotherapy. Followup. TECHNIQUE: CT imaging of the abdomen and pelvis before followed by CT imaging of the chest, abdomen and pelvis following administration of intravenous contrast. CORRELATION STUDY: CT angio chest 08/05/2017. FINDINGS: CT CHEST: Right IJ [id number] catheter is present with tip within the SVC. Partially visualized thyroid gland is unremarkable. Heart size is mildly enlarged with presence of scattered coronary artery calcifications. Thoracic aorta is unremarkable. There is moderate calcification of the aortic valve. Coronary artery calcification is present. No pathologically enlarged mediastinal and/or hilar lymph nodes. Consolidated appearance about the subpleural region of the bilateral lower lobes is present perhaps slightly more prominent particularly involving the left lung base. Area in the right lung base measuring approximately 33 x 26 mm, previously 33 x 23 mm. Left lung base 35 x 18 mm, previously 15 x 13 mm. Additional spiculated density in the posteromedial aspect of the left upper lobe has shown interval decrease in size currently measuring 6 x 6 mm, previously demonstrated spiculated mass measured 14 x 11 mm. Rather pronounced emphysematous change of the remaining lung parenchyma. Osseous structures demonstrate diffuse bony demineralization. Rather pronounced cystic change noted about the proximal humeral heads and scapula. Marked joint space narrowing and degenerative changes about the shoulders. CT ABDOMEN and PELVIS: Liver, spleen, pancreas and adrenal glands are unremarkable. Gallbladder is absent with clips in the fossa. Slightly exophytic, 12 mm low-density mass in the anterior superior pole of the left kidney is unchanged. Question minimal peripheral enhancement. Otherwise, normal enhancement of the kidneys. No hydronephrosis. There is moderate aortoiliac wall calcification. There is significant narrowing of the bilateral common iliac arteries, right greater than left. No pathologically enlarged central retroperitoneal lymph nodes. Gastrointestinal tract demonstrates no obstruction. Moderate severity fecal retention. There is asymmetric focal narrowing about the sigmoid colon which does appear to persist on multiple sequences. No abnormal ascites or free air. Normal appendix. Urinary bladder is unremarkable. Prostate gland is mildly enlarged. Osseous structures demonstrate mildly advanced degenerative changes about the lumbar spine and bilateral hips. IMPRESSION: CT CHEST: 1. Interval decrease in size of the spiculated left upper lobe pulmonary mass. 2. Increasing severity consolidation about the lung bases, left greater than right. This could be continued chronic consolidation pneumonia and/or atelectasis. Neoplasm would be considered less likely. However, given its more recent but continued development, neoplasm is not excluded, and continued followup imaging is recommended. CT ABDOMEN and PELVIS: 1. Negative for acute abnormality about the abdomen and/or pelvis. No findings to suggest abdominal metastatic disease. 2. Rather extensive aortoiliac vascular calcification with significant narrowing in the common iliac arteries, right greater than left. 3. Asymmetric caliber change about the sigmoid colon. This may very well reflect phase of peristalsis. Definitive mass is not suggested; however, if not recently performed, colon cancer screening evaluation would be recommended. 4. Small low-density exophytic mass in the superior pole of the left kidney. While this may very well reflect a cyst, does appear to be a change from prior older studies. Consideration might be given to initially correlation with ultrasound imaging for confirmation that this is a cystic mass. Dictated by: Dictated on workstation # [id number]
--- NOTE | 2017-10-30 16:00 | Diagnostic Imaging Report ---
INDICATION: Non-small cell lung carcinoma. TECHNIQUE: Patient was administered 24.4 mCi of technetium 99m MDP intravenously and whole-body imaging was performed after a three-hour delay. COMPARISON: No prior bone scans are available for comparison. FINDINGS: There is uptake of activity by the axial and appendicular skeleton. There is uptake by both kidneys with excretion into the urinary bladder. There is a small focus of increased uptake involving the proximal left femur in the region of the femoral head and neck. No corresponding abnormality is identified on CT study from earlier the same day. MRI may be useful for further evaluation. There is some medial compartmental degenerative change involving bilateral knees. There is increased uptake over the left foot and ankle, also likely on a degenerative basis. No other suspicious foci are detected. IMPRESSION: 1. Abnormal focus of increased activity in the region of the left femoral head/neck. No corresponding abnormality is seen on the CT study from earlier the same day. MRI would be useful for further categorization. No other suspicious abnormality is identified. Dictated by: Dictated on workstation # [id number]
== END ==
LOC: CARD 10:45
PROVIDERS: ATTEND Nurse Practitioner Adult Health
DX: C34.12 Malignant neoplasm of upper lobe, left bronchus or lung (principal); C79.51 Secondary malignant neoplasm of bone
CPT/HCPCS: 71260; 74178; 78306

== ENCOUNTER 2017-12-04 05:36 | Inpatient (IN) | payer MEDICAID ==
[~2017-12-04] VITALS: Ht 182.9 cm; Wt 83.0 kg
[~2017-12-04 05:36] MED LIST changes: -AMLO5TAB2 PO; +AMLO5TAB7 PO; +AMOX1TAB11 PO; +PANT40TA2 PO; -ROPI0.25 PO; +ROPI0.253 PO
--- OUTSIDE RECORDS SUMMARY | 2017-12-04 05:43 | XMS REPORT | Clinical Summary ---
Author Author [facility] Organization [facility] Address Unknown Phone Unavailable Care Team Providers Care Biomedical Photographer Name Role Phone Efra Valentino MD Unavailable Source Comments Some departments are not documenting in the electronic medical record. If you do not see the information that you expected, contact Release of Information in the Health Information Management department at [phone] for further assistance in locating additional records.[facility] Allergies Active Allergy Reactions Severity Noted Date [...] VACCINE 1970 COLORECTAL CANCER 07/17/2003 SCREENING SHINGLES RECOMBINANT 07/17/2003 VACCINE (1 of 2) INFLUENZA VACCINE 12/29/2017 Results Not on filefrom Last 3 Months
[2017-12-04] MEDS ORDERED: RT-ALBUTEROL/IPRATROPIUM 3 ML (DUONEB) VIAL INH ONE (06:00)
[2017-12-04 06:09] LABS: BASOPHILS % (AUTO) 1 % (0-10); EOSINOPHILS % (AUTO) 0 % (0-10); HEMATOCRIT 30 % (40-54); HEMOGLOBIN 9.7 G/DL (13.3-17.7); LYMPHOCYTES # (AUTO) 0.7 X 10^3 (1.0-4.0); LYMPHOCYTES % (AUTO) 22 % (12-44); MEAN CORPUSCULAR HEMOGLOBIN 31 PG (25-34); MEAN CORPUSCULAR HGB CONC 33 G/DL (32-36); MEAN CORPUSCULAR VOLUME 94 FL (80-99); MEAN PLATELET VOLUME 8.6 FL (7.4-10.4); MONOCYTES # (AUTO) 0.4 X 10^3 (0.0-1.0); MONOCYTES % (AUTO) 13 % (0-12); NEUTROPHILS # (AUTO) 2.1 X 10^3 (1.8-7.8); NEUTROPHILS % (AUTO) 64 % (42-75); PLATELET COUNT 201 10^3/uL (130-400); RED BLOOD COUNT 3.15 10^6/uL (4.35-5.85); RED CELL DISTRIBUTION WIDTH 17.2 % (10.0-14.5); WHITE BLOOD COUNT 3.3 10^3/uL (4.3-11.0)
[2017-12-04] MEDS ORDERED: RT-ALBUTEROL SULF 2.5 MG/3 ML PRE-MIX VIAL ONE (06:16)
[2017-12-04] MEDS ORDERED: RT-ALBUTEROL SULF 2.5 MG/3 ML PRE-MIX VIAL INH STA ×3 (06:18→07:51)
[2017-12-04] MEDS ORDERED: carBAMazepine 200 MG (TEGretol) TAB PO SCH (06:30)
[2017-12-04] MEDS ORDERED: lisINopril 20 MG (PRINIVIL) TABLET PO ONE (06:30)
[2017-12-04] MEDS ORDERED: lamoTRIgine 25 MG (LaMICtal) TAB PO ONE (06:30)
[2017-12-04 06:36] LABS: ALANINE AMINOTRANSFERASE 9 U/L (0-55); ALBUMIN 4.2 GM/DL (3.2-4.5); ALKALINE PHOSPHATASE 104 U/L (40-136); BILIRUBIN,TOTAL 0.2 MG/DL (0.1-1.0); BUN/CREATININE RATIO 26; CALCIUM 9.1 MG/DL (8.5-10.1); CARBON DIOXIDE 25 MMOL/L (21-32); CHLORIDE 104 MMOL/L (98-107); CREATININE SERUM 0.78 MG/DL (0.60-1.30); GFR ESTIMATED > 60; GLUCOSE 106 MG/DL (70-105); POTASSIUM 4.5 MMOL/L (3.6-5.0); SODIUM 136 MMOL/L (135-145); TOTAL PROTEIN 7.2 GM/DL (6.4-8.2)
--- NOTE | 2017-12-04 06:59 | ED Respiratory ---
General Chief Complaint: Respiratory Problems Stated Complaint: SOB Nursing Triage Note: PT AMBULATED TO RM 7 W/O DIFFICULTY. PT C/O SOB. PT STATES HE WAS DISCHARGED FROM APPROXIMATELY 1 WEEK AGO FOR PNEUMONIA. Source: patient Exam Limitations: no limitations History of Present Illness Date Seen by Provider: Dec 04, 2017 Time Seen by Provider: 06:02 Initial Comments Here with report of difficulty breathing. Was previously in the hospital for pneumonia and discharged about a week ago. States that he woke up this morning in respiratory distress. Tried a treatment that didn't work and came to the hospital. Here he received another treatment and is still having some distress. Denies nausea or vomiting. Unsure about fevers. Was seen by Dr. Bernal's office yesterday and there is concerns about his breathing then. They told him to come in if things were worse. Timing/Duration: yesterday, getting worse Severity: moderate Prior Episodes/Possible Cause: occasional episodes Modifying Factors: Worse With Activity; Improves With Albuterol Nebulizer; Worse With Coughing; Improves With Oxygen, Improves With Rest Associated Symptoms: cough; No fever/chills, No nasal congestion; shortness of breath, wheezing Allergies and Home Medications Allergies Coded Allergies: aspirin (Unverified Allergy, Mild, DOES NOT WORK WELL W/ OTHER MEDS, ) ibuprofen (Unverified Allergy, Mild, 08/05/17) Home Medications Albuterol Sulfate 2.5 Mg/3 Ml Vial.neb, 2.5 MG NEB 5XD PRN for SHORTNESS OF BREATH, (Reported) Albuterol Sulfate 1 Puff Puff, 2 PUFF IH Q6H PRN for SHORTNESS OF BREATH, ( Reported) 1 PUFF = 90 MCG Amlodipine Besylate 5 Mg Tablet, 5 MG PO 0800, (Reported) Amoxicillin/Potassium Clav 1 Each Tablet, 500 MG PO BID WITH MEALS Prescribed by: TONY HOFFMAN on 11/17/17 1149 Atorvastatin Calcium 10 Mg Tablet, 10 MG PO 0300, (Reported) Carbamazepine 200 Mg Tablet, 200 MG PO 0800,2300,0300, (Reported) Carbamazepine 200 Mg Tablet, 400 MG PO 1500, (Reported) TAKES 2 (200 MG) TABLETS Fluticasone/Salmeterol 1 Each Blst.w.dev, 1 PUFF INH BID, (Reported) Gabapentin 300 Mg Capsule, 300 MG PO 2300, (Reported) Gabapentin 600 Mg Tablet, 600 MG PO 0800,1500, (Reported) Hydrocodone/Acetaminophen 1 Each Tablet, 1 TAB PO Q6H PRN for PAIN-MODERATE, ( Reported) Lamotrigine 100 Mg Tablet, 100 MG PO 1500,2300, (Reported) Lamotrigine 25 Mg Tablet, 25 MG PO 1500,0300, (Reported) Lisinopril 20 Mg Tablet, 20 MG PO 0300, (Reported) Meloxicam 15 Mg Tablet, 15 MG PO 1500, (Reported) Pantoprazole Sodium 40 Mg Tablet.dr, 40 MG PO DAILY, (Reported) Phenytoin Sodium Extended 100 Mg Capsule, 200 MG PO 1500, (Reported) TAKES 2 (100 MG) CAPSULES Phenytoin Sodium Extended 100 Mg Capsule, 100 MG PO 0800,2300, (Reported) Prednisone 10 Mg Tab, 60 MG PO DAILY Take 5 tabs(50mg)daily, decrease by 1 tab(10mg) every other day. Prescribed by: TONY HOFFMAN on 11/17/17 1149 Ropinirole HCl 0.25 Mg Tablet, 0.25 MG PO 0800,1500,2300, (Reported) Tiotropium [place] 1 Inh Aerp, 1 CAP IH DAILY, (Reported) Patient Home Medication List Home Medication List Reviewed: Yes Review of Systems Review of Systems Constitutional: see HPI; No chills, No fever EENTM: no symptoms reported Respiratory: see HPI, cough, dyspnea on exertion, short of breath, wheezing Cardiovascular: No chest pain, No edema Gastrointestinal: No abdominal pain, No nausea, No vomiting Genitourinary: no symptoms reported Musculoskeletal: no symptoms reported All Other Systems Reviewed Negative Unless Noted: Yes Past Mrpctsx-Dnqynl-Poufcr Hx Past Med/Social Hx: Reviewed Nursing Past Med/Soc Hx Patient Social History Alcohol Use: Denies Use Recreational Drug Use: Yes (not current, 15 years ago-ETOH and PO drugs) Smoking Status: Former Smoker Type Used: Cigarettes Former Smoker, Quit: Feb 12, 2017 2nd Hand Smoke Exposure: No Recent Foreign Travel: No Contact w/Someone Who Travel: No Recent Infectious Disease Expo: No Recent Hopitalizations: Yes Physical Abuse: No Sexual Abuse: No Immunizations Up To Date Tetanus Booster (TDap): Unknown PED Vaccines UTD: Yes Seasonal Allergies Seasonal Allergies: Yes Past Medical History Surgeries: Yes Gallbladder Respiratory: Yes (METASTATIC LUNG CANCER DX 05/2017) Asthma, Sleep Apnea, COPD Currently Using CPAP: No Currently Using BIPAP: Yes Cardiac: Yes High Cholesterol, Hypertension Neurological: Yes (post polio syndrome with left-sided deficits) Seizure Disorder Reproductive Disorders: No Sexually Transmitted Disease: No HIV/AIDS: No Genitourinary: No Gastrointestinal: No Musculoskeletal: Yes Arthritis Endocrine: No HEENT: No Loss of Vision: Denies Hearing Impairment: Denies Cancer: Yes Lung Did You Recieve Any Treatments: Yes What Type of Treatment Did You: Chemotherapy Psychosocial: No Integumentary: No Blood Disorders: No Adverse Reaction/Blood Tranf: No Family Medical History Reviewed Nursing Family Hx Hypercholesterolemia 19 FATHER Hypertension 19 FATHER No Pertinent Family Hx, Heart Disease Physical Exam Vital Signs - First Documented 12/04/17 05:44 Temp 97.7 Pulse 67 Resp 20 B/P (MAP) 154/91 (112) Pulse Ox 98 O2 Delivery Nasal Cannula O2 Flow Rate 4.00 Capillary Refill : Less Than 3 Seconds Height: 6'0" Weight: 177lbs. 3.0oz. [id number]; 23.6 BMI Method:Stated General Appearance: WD/WN, no apparent distress HEENT: PERRL/EOMI, pharynx normal Neck: full range of motion, supple Respiratory: no respiratory distress, accessory muscle use, crackles, wheezing Cardiovascular: regular rate, rhythm, no murmur Gastrointestinal: non tender, soft Extremities: non-tender, normal inspection Neurologic/Psychiatric: no motor/sensory deficits, alert, oriented x 3 Skin: normal color, warm/dry Procedures/Interventions Date of ETT Placement: Mar 09, 2017 Time of ETT Placement: 1811 Suture Size: 5-0 Progress/Results/Core Measures Suspected Sepsis Recent Fever Within 48 Hours: No Infection Criteria Present: None New/Unexplained Altered Menta: No Sepsis Screen: No Definite Risk SIRS Temperature:97.7 Pulse: 67 Respiratory Rate: 20 Laboratory Tests 12/04/17 06:00: White Blood Count 3.3L Blood Pressure 154 /91 Mean: 112 Laboratory Tests 12/04/17 06:00: Creatinine 0.78, Platelet Count 201, Total Bilirubin 0.2 Results/Orders Lab Results Laboratory Tests Test 12/04/17 06:00 Range/Units White Blood Count 3.3 L 4.3-11.0 10^3/uL Red Blood Count 3.15 L 4.35-5.85 10^6/uL Hemoglobin 9.7 L 13.3-17.7 G/DL Hematocrit 30 L 40-54 % Mean Corpuscular Volume 94 80-99 FL Mean Corpuscular Hemoglobin 31 25-34 PG Mean Corpuscular Hemoglobin Concent 33 32-36 G/DL Red Cell Distribution Width 17.2 H 10.0-14.5 % Platelet Count 201 130-400 10^3/uL Mean Platelet Volume 8.6 7.4-10.4 FL Neutrophils (%) (Auto) 64 42-75 % Lymphocytes (%) (Auto) 22 12-44 % Monocytes (%) (Auto) 13 H 0-12 % Eosinophils (%) (Auto) 0 0-10 % Basophils (%) (Auto) 1 0-10 % Neutrophils # (Auto) 2.1 1.8-7.8 X 10^3 Lymphocytes # (Auto) 0.7 L 1.0-4.0 X 10^3 Monocytes # (Auto) 0.4 0.0-1.0 X 10^3 Eosinophils # (Auto) 0.0 0.0-0.3 10^3/uL Basophils # (Auto) 0.0 0.0-0.1 10^3/uL Sodium Level 136 135-145 MMOL/L Potassium Level 4.5 3.6-5.0 MMOL/L Chloride Level 104 98-107 MMOL/L Carbon Dioxide Level 25 21-32 MMOL/L Anion Gap 7 5-14 MMOL/L Blood Urea Nitrogen 20 H 7-18 MG/DL Creatinine 0.78 0.60-1.30 MG/DL Estimat Glomerular Filtration Rate > 60 BUN/Creatinine Ratio 26 Glucose Level 106 H 70-105 MG/DL Calcium Level 9.1 8.5-10.1 MG/DL Corrected Calcium 8.9 8.5-10.1 MG/DL Total Bilirubin 0.2 0.1-1.0 MG/DL Aspartate Amino Transf (AST/SGOT) 12 5-34 U/L Alanine Aminotransferase (ALT/SGPT) 9 0-55 U/L Alkaline Phosphatase 104 40-136 U/L C-Reactive Protein High Sensitivity 0.84 H 0.00-0.50 MG/DL Total Protein 7.2 6.4-8.2 GM/DL Albumin 4.2 3.2-4.5 GM/DL My Orders Orders - VANESSA GUTHRIE MD Carbamazepine Tablet (Tegretol Tablet) (12/04/17 06:30) Lamotrigine Tablet (Lamictal Tablet) (12/04/17 06:30) Lisinopril Tablet (Zestril Tablet) (12/04/17 06:30) Albuterol Pre-Mix Nebs (Rt) (Proventil (12/04/17 06:18) Svn Small Volume Nebulizer (12/04/17 06:18) Albuterol Pre-Mix Nebs (Rt) (Proventil (12/04/17 06:16) Albuterol Pre-Mix Nebs (Rt) (Proventil (12/04/17 07:39) Methylprednisolone Sod Succ (Solu-Medrol (12/04/17 07:39) Svn Small Volume Nebulizer (12/04/17 07:39) Medications Given in ED Current Medications Medications Dose Ordered Sig/Porfirio Route Start Time Stop Time Status Last Admin Dose Admin Albuterol/ Ipratropium 3 ml ONCE ONCE INH 12/04/17 06:00 12/04/17 06:01 DC 12/04/17 05:58 3 ML Lamotrigine 25 mg ONCE ONCE PO 12/04/17 06:30 12/04/17 06:31 DC 12/04/17 06:29 25 MG Lisinopril 20 mg ONCE ONCE PO 12/04/17 06:30 12/04/17 06:31 DC 12/04/17 06:29 20 MG Vital Signs/I&O 12/04/17 12/04/17 12/04/17 05:44 05:58 06:23 Temp 97.7 Pulse 67 Resp 20 B/P (MAP) 154/91 (112) Pulse Ox 98 98 98 O2 Delivery Nasal Cannula Nasal Cannula Nasal Cannula O2 Flow Rate 4.00 4.00 4.00 Capillary Refill : Less Than 3 Seconds Blood Pressure Mean: 112 Progress Note : Progress Note Seen and evaluated. IV, labs, chest x-ray and DuoNeb ordered. Repeat albuterol neb 2 ordered. Monitor patient. Repeat albuterol neb ordered. Patient states she is not at baseline. Hour-long ordered. 0745: I did discuss the case with Dr. Genao. We will admit the patient for further treatment. Observation status. Dr. Bernal consulted. He agrees. Solu-Medrol 125 mg IV ordered. Patient agrees to plan Diagnostic Imaging Diagonstic Imaging: Xray Plain Films/CT/US/NM/MRI: chest Comments NAME: [facility] REC#: [id number] PT STATUS: REG ER : 1955 PHYSICIAN: STEFAN HERNANDEZ MD ADMIT DATE: 12/04/17/ER Draft Date of Exam:12/04/17 CHEST PA/LAT (2 VIEW) INDICATION: Cough and congestion. PA and lateral chest. FINDINGS: Right IJ Port-A-Cath tip projects over the SVC. Heart size and pulmonary vascularity are normal. Lungs are clear. There are no effusions or pneumothoraces. IMPRESSION: Emphysematous changes in the lungs. No acute abnormality is seen. Dictated on workstation # [id number] Dict: 12/04/17 0656 Trans: 12/04/17 0658 [id number] Interpreted by: VANESSA SERNA MD Electronically signed by: Departure Communication (Admissions) Time/Spoke to Admitting Phy: 07:40 Time/Spoke to Consulting Phy: 07:45 Impression Primary Impression: COPD with acute exacerbation Disposition: ADMITTED INPATIENT Condition: Stable Admissions Decision to Admit Reason: Admit from ER (General) Decision to Admit/Date: Dec 04, 2017 Time/Decision to Admit Time: 07:40 Departure-Patient Inst. Referrals: AMANDEEP GENAO DO (PCP/Family) Primary Care Physician VANESSA GUTHRIE MD Dec 04, 2017 06:59
[2017-12-04] MEDS ORDERED: methylPREDNISolone 125 MG (Solu-MEDROL) VIAL IV STA (07:39)
[2017-12-04] MEDS ORDERED: RT-IPRATROPIUM (ATROVENT) 0.5MG/2.5ML AMP IH ONE (08:00)
[2017-12-04] MEDS ORDERED: rOPINIRole 0.25 MG (REQUIP) TAB PO ONE (08:15)
--- NOTE | 2017-12-04 08:36 | History & Physicial ---
History of Present Illness History of Present Illness Reason for visit/HPI Short of breath. Patient states last night when he went to sleep is breathing okay. Patient woke up gasping for air. Did not get better. Came out to the emergency room. Patient has COPD. Patient has COPD with acute exacerbation and admitted Date of Admission Dec 04, 2017 at 07:45 Time Seen by Provider: 08:32 I consulted on this patient on 12/04/17 08:33 Attending Physician Micky Genao DO Admitting Physician Micky Genao DO Consult Allergies and Home Medications Allergies Coded Allergies: aspirin (Unverified Allergy, Mild, DOES NOT WORK WELL W/ OTHER MEDS, ) ibuprofen (Unverified Allergy, Mild, 08/05/17) Home Medications Albuterol Sulfate 2.5 Mg/3 Ml Vial.neb, 2.5 MG NEB 5XD PRN for SHORTNESS OF BREATH, (Reported) Albuterol Sulfate 1 Puff Puff, 2 PUFF IH Q6H PRN for SHORTNESS OF BREATH, ( Reported) 1 PUFF = 90 MCG Amlodipine Besylate 5 Mg Tablet, 5 MG PO 0800, (Reported) Amoxicillin/Potassium Clav 1 Each Tablet, 500 MG PO BID WITH MEALS Prescribed by: TONY HOFFMAN on 11/17/17 1149 Atorvastatin Calcium 10 Mg Tablet, 10 MG PO 0300, (Reported) Carbamazepine 200 Mg Tablet, 200 MG PO 0800,2300,0300, (Reported) Carbamazepine 200 Mg Tablet, 400 MG PO 1500, (Reported) TAKES 2 (200 MG) TABLETS Fluticasone/Salmeterol 1 Each Blst.w.dev, 1 PUFF INH BID, (Reported) Gabapentin 300 Mg Capsule, 300 MG PO 2300, (Reported) Gabapentin 600 Mg Tablet, 600 MG PO 0800,1500, (Reported) Hydrocodone/Acetaminophen 1 Each Tablet, 1 TAB PO Q6H PRN for PAIN-MODERATE, ( Reported) Lamotrigine 100 Mg Tablet, 100 MG PO 1500,2300, (Reported) Lamotrigine 25 Mg Tablet, 25 MG PO 1500,0300, (Reported) Lisinopril 20 Mg Tablet, 20 MG PO 0300, (Reported) Meloxicam 15 Mg Tablet, 15 MG PO 1500, (Reported) Pantoprazole Sodium 40 Mg Tablet.dr, 40 MG PO DAILY, (Reported) Phenytoin Sodium Extended 100 Mg Capsule, 200 MG PO 1500, (Reported) TAKES 2 (100 MG) CAPSULES Phenytoin Sodium Extended 100 Mg Capsule, 100 MG PO 0800,2300, (Reported) Prednisone 10 Mg Tab, 60 MG PO DAILY Take 5 tabs(50mg)daily, decrease by 1 tab(10mg) every other day. Prescribed by: TONY HOFFMAN on 11/17/17 1149 Ropinirole HCl 0.25 Mg Tablet, 0.25 MG PO 0800,1500,2300, (Reported) Tiotropium [place] 1 Inh Aerp, 1 CAP IH DAILY, (Reported) Patient Home Medication List Home Medication List Reviewed: No Past Tjnjirb-Hwjrrr-Yrmljd Hx Patient Social History Alcohol Use: Denies Use Recreational Drug Use: Yes (not current, 15 years ago-ETOH and PO drugs) Smoking Status: Former Smoker Former Smoker, Quit: Feb 12, 2017 Type Used: Cigarettes 2nd Hand Smoke Exposure: No Recent Foreign Travel: No Contact w/other who traveled: No Recent Hopitalizations: Yes Recent Infectious Disease Expo: No Immunizations Up To Date Tetanus Booster (TDap): Unknown Pediatric: Yes Seasonal Allergies Seasonal Allergies: Yes Surgeries Yes Gallbladder Respiratory Yes (METASTATIC LUNG CANCER DX 05/2017) COPD, Emphysema, Pneumonia Currently Using CPAP: No Currently Using BIPAP: Yes Cardiovascular Yes High Cholesterol, Hypertension 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) Seizure Disorder Reproductive System Hx Reproductive Disorders: No Sexually Transmitted Disease: No HIV/AIDS: No Genitourinary No Gastrointestinal No Musculoskeletal Yes Arthritis Endocrine History of Endocrine Disorders: No HEENT History of HEENT Disorders: No Loss of Vision: Denies Hearing Impairment: Denies Cancer Yes Lung Did You Recieve Any Treatments: Yes Type of Treatment: Chemotherapy Psychosocial History of Psychiatric Problem: No Integumentary History of Skin or Integumenta: No Blood Transfusions History of Blood Disorders: No Adverse Reaction to a Blood Tr: No Family Medical History Significant Family History: No Pertinent Family Hx, Heart Disease Family Hx: Hypercholesterolemia 19 FATHER Hypertension 19 FATHER Review of Systems Constitutional: no symptoms reported EENTM: no symptoms reported Respiratory: dyspnea on exertion, short of breath Cardiovascular: no symptoms reported Gastrointestinal: no symptoms reported Genitourinary: no symptoms reported Physical Exam Vital Signs Vital Signs - First Documented 12/04/17 05:44 Temp 97.7 Pulse 67 Resp 20 B/P (MAP) 154/91 (112) Pulse Ox 98 O2 Delivery Nasal Cannula O2 Flow Rate 4.00 Capillary Refill : Less Than 3 Seconds Height, Weight, BMI Height: 6'0" Weight: 177lbs. 3.0oz. 80.465540rr; 23.6 BMI Method:Stated General Appearance: No Apparent Distress Eyes: Bilateral Eye Normal Inspection HEENT: Normal ENT Inspection Neck: Full Range of Motion, Normal Inspection Respiratory: Decreased Breath Sounds, Wheezing Cardiovascular: Regular Rate, Rhythm, No Murmur Gastrointestinal: No Pulsatile Mass Assessment/Plan Assessment and Plan COPD with acute exacerbation. Lung cancer. Seizure disorder Admission Diagnosis Admission Status: Observation MICKY GENAO DO Dec 04, 2017 08:36
--- NOTE | 2017-12-04 08:42 | Pulmonary Consultation ---
History of Present Illness History of Present Illness Date of Consultation 12/04/17 08:33 Time Seen by Provider: 08:33 Date of Admission History of Present Illness 62yo who was recently discharged from hospital 1wk ago for pneumonia presented to ED with worsening respiratory distress. Pt was seen by my MANAGER FRONT in office yesterday however his SOB was not as bad as it is now. SOB has continued to become progressively worse throughout the night. I am consulted for pulmonary management. Allergies and Home Medications Allergies Coded Allergies: aspirin (Unverified Allergy, Mild, DOES NOT WORK WELL W/ OTHER MEDS, ) ibuprofen (Unverified Allergy, Mild, 08/05/17) Home Medications Albuterol Sulfate 2.5 Mg/3 Ml Vial.neb, 2.5 MG NEB 5XD PRN for SHORTNESS OF BREATH, (Reported) Albuterol Sulfate 1 Puff Puff, 2 PUFF IH Q6H PRN for SHORTNESS OF BREATH, ( Reported) 1 PUFF = 90 MCG Amlodipine Besylate 5 Mg Tablet, 5 MG PO 0800, (Reported) Atorvastatin Calcium 10 Mg Tablet, 10 MG PO 0300, (Reported) Carbamazepine 200 Mg Tablet, 200 MG PO 0800,2300,0300, (Reported) Carbamazepine 200 Mg Tablet, 400 MG PO 1500, (Reported) TAKES 2 (200 MG) TABLETS Fluticasone/Salmeterol 1 Each Blst.w.dev, 1 PUFF INH BID, (Reported) Gabapentin 300 Mg Capsule, 300 MG PO 2300, (Reported) Gabapentin 600 Mg Tablet, 600 MG PO 0800,1500, (Reported) Lamotrigine 100 Mg Tablet, 100 MG PO 1500,2300, (Reported) Lamotrigine 25 Mg Tablet, 25 MG PO 1500,0300, (Reported) Lisinopril 20 Mg Tablet, 20 MG PO 0300, (Reported) Meloxicam 15 Mg Tablet, 15 MG PO 1500, (Reported) Pantoprazole Sodium 40 Mg Tablet.dr, 40 MG PO DAILY, (Reported) Phenytoin Sodium Extended 100 Mg Capsule, 200 MG PO 0800,1500, (Reported) TAKES 2 (100 MG) CAPSULES Phenytoin Sodium Extended 100 Mg Capsule, 100 MG PO 2300, (Reported) Ropinirole HCl 0.25 Mg Tablet, 0.25 MG PO 0800,1500,2300, (Reported) Tiotropium [place] 1 Inh Aerp, 1 CAP IH DAILY, (Reported) Past Bhlsdqa-Gcogtt-Xecobr Hx Past Med/Social Hx: Reviewed Nursing Past Med/Soc Hx Patient Social History Alcohol Use: Denies Use Recreational Drug Use: Yes (not current, 15 years ago-ETOH and PO drugs) Smoking Status: Former Smoker Type Used: Cigarettes Former Smoker, Quit: Feb 12, 2017 2nd Hand Smoke Exposure: No Recent Foreign Travel: No Contact w/Someone Who Travel: No Recent Infectious Disease Expo: No Recent Hopitalizations: Yes Physical Abuse: No Sexual Abuse: No Immunizations Up To Date Tetanus Booster (TDap): Unknown PED Vaccines UTD: Yes Seasonal Allergies Seasonal Allergies: Yes Past Medical History Surgeries: Yes Gallbladder Respiratory: Yes (METASTATIC LUNG CANCER DX 05/2017) Asthma, Sleep Apnea, COPD Currently Using CPAP: No Currently Using BIPAP: Yes Cardiac: Yes High Cholesterol, Hypertension Neurological: Yes (post polio syndrome with left-sided deficits) Seizure Disorder Reproductive Disorders: No Sexually Transmitted Disease: No HIV/AIDS: No Genitourinary: No Gastrointestinal: No Musculoskeletal: Yes Arthritis Endocrine: No HEENT: No Loss of Vision: Denies Hearing Impairment: Denies Cancer: Yes Lung Did You Recieve Any Treatments: Yes What Type of Treatment Did You: Chemotherapy Psychosocial: No Integumentary: No Blood Disorders: No Adverse Reaction/Blood Tranf: No Family Medical History Reviewed Nursing Family Hx Hypercholesterolemia 19 FATHER Hypertension 19 FATHER No Pertinent Family Hx, Heart Disease Review of Systems Time Seen by Provider: 09:58 Constitutional: Weakness, Malaise; No: Fever, Chills, Sweats, Other Eyes: No: Pain, Vision change, Conjunctivae inflammation, Eyelid inflammation, Other, Redness ENT: Nose congestion; No: Ear pain, Ear discharge, Nose pain, Nose discharge, Mouth pain, Mouth swelling, Throat pain, Throat swelling, Other Respiratory: Cough, Dry, Shortness of breath, SOB with excertion Cardiovascular: No: Chest Pain, Palpitations, Orthopnea, Paroxysmal Noc. Dyspnea, Edema, Lt Headedness, Other Gastrointestinal: No: Nausea, Vomiting, Abdominal Pain, Diarrhea, Constipation , Melena, Hematochezia, Other Neurological: Weakness, Confusion Sepsis Event Evaluation Height, Weight, BMI Height: 6'0" Weight: 177lbs. 3.0oz. 80.221666ll; 23.6 BMI Method:Stated Exam Exam Vital Signs Date Time Temp Pulse Resp B/P (MAP) Pulse Ox O2 Delivery O2 Flow Rate FiO2 12/04/17 08:01 98 Nasal Cannula 4.00 12/04/17 07:59 98 Nasal Cannula 4.00 12/04/17 06:23 98 Nasal Cannula 4.00 12/04/17 05:58 98 Nasal Cannula 4.00 12/04/17 05:44 97.7 67 20 154/91 (112) 98 Nasal Cannula 4.00 Height & Weight Height: 6'0" Weight: 177lbs. 3.0oz. 80.566827vm; 23.6 BMI Method:Stated General Appearance: Anxious, Mild Distress Neck: Full Range of Motion, Normal Inspection, Non Tender Respiratory: Chest Non Tender, Decreased Breath Sounds Capillary Refill: Less Than 3 Seconds Gastrointestinal: non tender, soft Extremity: Normal Capillary Refill, Normal Inspection Neurologic/Psychiatric: Alert, Oriented x3 Skin: Normal Color, Warm/Dry Results Lab Laboratory Tests 12/04/17 06:00 Assessment/Plan Assessment/Plan COPDAE- with chronic respiratory failure SNVS. advair, -solumedrol -oxygen therapy Acute on chronic respiratory failure - pt woke up in respiratory distress -Telemetry -PT woke up very SOB. -Check Ddimer -labs and cxr reviewed. 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
[2017-12-04 09:10] VITALS: BP 175/72
--- OUTSIDE RECORDS SUMMARY | 2017-12-04 09:27 | XMS REPORT | Clinical Summary ---
Author Author [facility] Organization [facility] Address Unknown Phone Unavailable Care Team Providers Care Clinical Secretary Name Role Phone Efra Valentino MD Unavailable Source Comments Some departments are not documenting in the electronic medical record. If you do not see the information that you expected, contact Release of Information in the Health Information Management department at [phone] for further assistance in locating additional records.[facility] Allergies Active Allergy Reactions Severity Noted [...] 16 Active Problems Problem Noted Date Seizures ([facility]) 10/22/2013 Hemiparesis ([facility]) 10/22/2013 Asthma 10/22/2013 COPD (chronic obstructive pulmonary disease) ([facility]) 10/22/2013 Hyperlipidemia 10/22/2013 Weight loss 10/22/2013 [...]
[2017-12-04] MEDS ORDERED: CATHETER FLUSH 10 ML SYR IV PRN (09:45)
[2017-12-04] MEDS ORDERED: RT-ALBUTEROL/IPRATROPIUM 3 ML (DUONEB) VIAL INH PRN (10:30)
[2017-12-04] MEDS ORDERED: RT-ALBUTEROL SULF 2.5 MG/3 ML PRE-MIX VIAL IH PRN (10:30)
[2017-12-04] MEDS: RT-ADVAIR HFA 115/21 MCG PER PUFF IH SCH ×2 (10:52→19:35)
[2017-12-04] MEDS: RT-ALBUTEROL/IPRATROPIUM 3 ML (DUONEB) VIAL INH SCH ×4 (10:52→22:21)
[2017-12-04] MEDS: methylPREDNISolone 40 MG/ML (Solu-MEDROL) VIAL IV SCH ×3 (11:18→23:16)
[2017-12-04] MEDS: GABAPENTIN 600 MG (NEURONTIN) TAB PO SCH ×2 (11:19→14:56)
[2017-12-04] MEDS: ENOXAPARIN 40 MG/0.4 ML (LOVENOX) SYR SC SCH (11:19)
[2017-12-04] MEDS: amLODIPine 5 MG (NORVASC) TAB PO SCH (11:19)
[2017-12-04] MEDS: PHENYTOIN 100 MG (DILANTIN) CAP PO SCH ×3 (11:20→23:12)
[2017-12-04 12:00] VITALS: BP 126/72
--- NOTE | 2017-12-04 13:39 | Diagnostic Imaging Report ---
PROCEDURE: CT angiography of the chest with contrast. TECHNIQUE: Multiple contiguous axial images were obtained through the chest after uneventful bolus administration of intravenous contrast. Reconstructed CTA MIP acquisitions were also performed. INDICATION: Difficulty breathing, history of lung cancer. COMPARISON: Study compared to 10/30/2017. FINDINGS: Spiculated nodule in the left upper lung posteriorly believed to be in the upper lobe and adjacent to the top of the major fissure is unchanged from prior measuring about 7 mm in long axis. Underlying centrilobular emphysema as a superimposed chronic finding redemonstrated. While there are infrahilar and dependent zones of basilar atelectasis, pneumonia superimposed could not be excluded; however, the consolidations in the medial lung bases have at least mildly improved from the previous exam. There is no hilar or mediastinal lymphadenopathy, and no pneumothorax present. There is no pleural or pericardial effusion. There is poor opacification of the pulmonary arterial branches. No evidence for a central clot was found; however, the subsegmental and branches distally cannot be evaluated. There are no secondary findings to suggest PE. No findings of elevated right heart pressure or pulmonary infarct. Nonaneurysmal atherosclerotic vascular calcifications, chronic. There is no acute appearing chest wall pathology. The upper abdomen reveals colonic constipation. IMPRESSION: 1. Limited evaluation of the pulmonary arterial branches on a technical basis. No appreciable PE or acute aortic disease. 2. Spiculated mass in the left upper lobe, unchanged. 3. Basilar atelectasis and infiltrates. The medial basilar consolidations have mildly improved from the previous exam with no adverse development apparent. Dictated by: Dictated on workstation # [id number]
[2017-12-04] MEDS: rOPINIRole 0.25 MG (REQUIP) TAB PO SCH ×2 (14:56→23:12)
[2017-12-04] MEDS: lamoTRIgine 25 MG (LaMICtal) TAB PO SCH (14:56)
[2017-12-04] MEDS: MELOXICAM 7.5 MG (MOBIC) TABLET PO SCH (14:56)
[2017-12-04] MEDS: carBAMazepine 200 MG (TEGretol) TAB PO SCH (14:57)
[2017-12-04] MEDS: CATHETER FLUSH 10 ML SYR IV SCH ×2 (14:57→23:12)
[2017-12-04 16:00] VITALS: BP 126/68
[2017-12-04 19:23] VITALS: BP 125/60
[2017-12-04] MEDS ORDERED: RT-ADVAIR HFA 115/21 MCG PER PUFF IH SCH (20:00)
[2017-12-04] MEDS: GABAPENTIN 300 MG (NEURONTIN) CAP PO SCH (23:12)
[2017-12-05 00:04] VITALS: BP 155/67
[2017-12-05] MEDS: lamoTRIgine 25 MG (LaMICtal) TAB PO SCH ×2 (02:57→15:10)
[2017-12-05] MEDS: lisINopril 20 MG (PRINIVIL) TABLET PO SCH (02:57)
[2017-12-05] MEDS: ATORVASTATIN 10 MG (LIPITOR) TABLET PO SCH (02:57)
[2017-12-05] MEDS: RT-ALBUTEROL/IPRATROPIUM 3 ML (DUONEB) VIAL INH SCH ×6 (02:57→22:27)
[2017-12-05 04:19] VITALS: BP 143/76
[2017-12-05] MEDS: methylPREDNISolone 40 MG/ML (Solu-MEDROL) VIAL IV SCH (06:10)
[2017-12-05] MEDS: CATHETER FLUSH 10 ML SYR IV SCH ×3 (06:10→21:48)
[2017-12-05] MEDS: PANTOPRAZOLE 40 MG (PROTONIX) TAB PO SCH (06:10)
--- NOTE | 2017-12-05 07:48 | Pulmonary Progress Note ---
Subjective Time Seen by Provider: 07:48 Sepsis Event Evaluation Height, Weight, BMI Height: 6'0.00" Weight: 178lbs. 6.0oz. 80.908384up; 24.0 BMI Method:Stated Exam Exam Vital Signs Date Time Temp Pulse Resp B/P (MAP) Pulse Ox O2 Delivery O2 Flow Rate FiO2 12/05/17 07:21 95 Nasal Cannula 4.00 12/05/17 04:19 97.9 65 17 143/76 (98) 95 Nasal Cannula 3.50 12/05/17 02:57 95 Nasal Cannula 4.00 12/05/17 00:04 98.2 74 16 155/67 (96) 98 Nasal Cannula 3.50 12/04/17 22:21 97 Nasal Cannula 4.00 12/04/17 20:00 Nasal Cannula 4.00 12/04/17 19:35 Nasal Cannula 4.00 12/04/17 19:35 96 Nasal Cannula 4.00 12/04/17 19:23 98.1 79 22 125/60 (81) 97 Nasal Cannula 3.50 12/04/17 16:00 98.4 80 20 126/68 (87) 97 Nasal Cannula 3.50 12/04/17 14:30 97 Nasal Cannula 4.00 12/04/17 12:00 98.0 77 20 126/72 (90) 98 Nasal Cannula 4.00 12/04/17 10:53 98 Nasal Cannula 4.00 12/04/17 09:30 98 Nasal Cannula 4.00 12/04/17 09:10 67 22 130/68 99 OxyMask 4.00 12/04/17 09:10 96.5 68 20 175/72 (106) 99 Nasal Cannula 4.00 12/04/17 08:01 98 Nasal Cannula 4.00 12/04/17 07:59 98 Nasal Cannula 4.00 I & O 12/05/17 07:00 Intake Total 2160 ml Balance 2160 ml Height & Weight Height: 6'0.00" Weight: 178lbs. 6.0oz. 80.055245ic; 24.0 BMI Method:Stated General Appearance: Anxious, Mild Distress HEENT: Normal ENT Inspection Neck: Full Range of Motion, Normal Inspection, Non Tender Respiratory: Chest Non Tender, Decreased Breath Sounds Cardiovascular: Regular Rate, Rhythm, No Murmur Capillary Refill: Less Than 3 Seconds Gastrointestinal: non tender, soft Extremity: Normal Capillary Refill, Normal Inspection Neurologic/Psychiatric: Alert, Oriented x3 Skin: Normal Color, Warm/Dry Results Lab Laboratory Tests 12/04/17 06:00 Assessment/Plan Assessment/Plan COPDAE- with chronic respiratory failure SNVS. advair, -solumedrol-- change to prednisone taper -oxygen therapy Acute on chronic respiratory failure - pt woke up in respiratory distress -Telemetry -labs and cxr reviewed. Anemia - monitor Nonsmall cell lung cancer with mets to bone -oncology following hx seizures -Continue to monitor -seizure precautions RANI PACHECO DO Dec 05, 2017 7:48 am
[2017-12-05 08:00] VITALS: BP 142/71
--- NOTE | 2017-12-05 08:10 | Progress Note (SOAP) ---
Subjective Time Seen by Provider: 08:05 Subjective/Events-last exam Patient feeling better today. Patient realizes not able to go home at this moment. Patient feels by tomorrow we'll be able to be discharged. Objective Exam Vital Signs Date Time Temp Pulse Resp B/P (MAP) Pulse Ox O2 Delivery O2 Flow Rate FiO2 12/05/17 07:21 95 Nasal Cannula 4.00 12/05/17 04:19 97.9 65 17 143/76 (98) 95 Nasal Cannula 3.50 12/05/17 02:57 95 Nasal Cannula 4.00 12/05/17 00:04 98.2 74 16 155/67 (96) 98 Nasal Cannula 3.50 12/04/17 22:21 97 Nasal Cannula 4.00 12/04/17 20:00 Nasal Cannula 4.00 12/04/17 19:35 Nasal Cannula 4.00 12/04/17 19:35 96 Nasal Cannula 4.00 12/04/17 19:23 98.1 79 22 125/60 (81) 97 Nasal Cannula 3.50 12/04/17 16:00 98.4 80 20 126/68 (87) 97 Nasal Cannula 3.50 12/04/17 14:30 97 Nasal Cannula 4.00 12/04/17 12:00 98.0 77 20 126/72 (90) 98 Nasal Cannula 4.00 12/04/17 10:53 98 Nasal Cannula 4.00 12/04/17 09:30 98 Nasal Cannula 4.00 12/04/17 09:10 67 22 130/68 99 OxyMask 4.00 12/04/17 09:10 96.5 68 20 175/72 (106) 99 Nasal Cannula 4.00 I & O 12/05/17 07:00 Intake Total 2160 ml Balance 2160 ml Capillary Refill : Less Than 3 SecondsLess Than 3 Seconds General Appearance: No Apparent Distress, WD/WN HEENT: Normal ENT Inspection Neck: Full Range of Motion, Non Tender Respiratory: No Accessory Muscle Use, No Respiratory Distress, Decreased Breath Sounds Cardiovascular: Regular Rate, Rhythm Gastrointestinal: non tender, soft Assessment/Plan Assessment/Plan Assess & Plan/Chief Complaint COPD with acute exacerbation. Line lung cancer. Seizure disorder. Patient improving Clinical Quality Measures Admission Status Admission Dx COPD with acute exacerbation. Lung cancer. Seizure disorder DVT/VTE Risk/Contraindication: Risk Factor Score Per Nursin RFS Level Per Nursing on Admit: 4+=Very High AMANDEEP GENAO DO Dec 05, 2017 08:10
[2017-12-05] MEDS: GABAPENTIN 600 MG (NEURONTIN) TAB PO SCH ×2 (08:25→15:10)
[2017-12-05] MEDS: rOPINIRole 0.25 MG (REQUIP) TAB PO SCH ×3 (08:25→21:47)
[2017-12-05] MEDS: PHENYTOIN 100 MG (DILANTIN) CAP PO SCH ×3 (08:25→21:48)
[2017-12-05] MEDS: amLODIPine 5 MG (NORVASC) TAB PO SCH (08:25)
[2017-12-05 08:43] LABS: HEMOGLOBIN 9.8 G/DL (13.3-17.7); MEAN PLATELET VOLUME 8.3 FL (7.4-10.4); RED BLOOD COUNT 3.22 10^6/uL (4.35-5.85); RED CELL DISTRIBUTION WIDTH 17.4 % (10.0-14.5); WHITE BLOOD COUNT 4.1 10^3/uL (4.3-11.0)
[2017-12-05 09:00] LABS: ALANINE AMINOTRANSFERASE 10 U/L (0-55); ALBUMIN 4.2 GM/DL (3.2-4.5); ALKALINE PHOSPHATASE 99 U/L (40-136); BILIRUBIN,TOTAL 0.2 MG/DL (0.1-1.0); BUN/CREATININE RATIO 17; CALCIUM 9.7 MG/DL (8.5-10.1); CARBON DIOXIDE 25 MMOL/L (21-32); CHLORIDE 100 MMOL/L (98-107); GFR ESTIMATED > 60; GLUCOSE 137 MG/DL (70-105); POTASSIUM 4.3 MMOL/L (3.6-5.0); SODIUM 134 MMOL/L (135-145)
[2017-12-05] MEDS: RT-ADVAIR HFA 115/21 MCG PER PUFF IH SCH ×2 (09:53→18:52)
[2017-12-05] MEDS: UMECLIDINIUM BROMIDE (INCRUSE ELLIPTA) 7'S IH SCH (09:53)
[2017-12-05] MEDS: predniSONE 10 MG TAB PO SCH (11:50)
[2017-12-05] MEDS: ENOXAPARIN 40 MG/0.4 ML (LOVENOX) SYR SC SCH (11:50)
[2017-12-05 12:00] VITALS: BP 141/64
[2017-12-05] MEDS: MELOXICAM 7.5 MG (MOBIC) TABLET PO SCH (15:09)
[2017-12-05] MEDS: carBAMazepine 200 MG (TEGretol) TAB PO SCH (15:10)
[2017-12-05 15:25] VITALS: BP 144/66
--- NOTE | 2017-12-05 15:52 | Diagnostic Imaging Report ---
Indication: Cough and COPD. Comparison made with prior examination of 12/04/2017. Findings: There is bibasilar atelectasis and/or pneumonitis right greater than left. There is no pleural effusion or pneumothorax. Mediastinum is unremarkable. Heart size is normal. Hydry-p-fdeo catheter overlies right hemithorax. Impression: Bibasilar atelectasis and/or pneumonitis, right greater than left. Dictated by: Dictated on workstation # [id number]
[2017-12-05 19:40] VITALS: BP 128/60
[2017-12-05] MEDS: GABAPENTIN 300 MG (NEURONTIN) CAP PO SCH (21:48)
[2017-12-06] VITALS: BP 142/64
[2017-12-06] MEDS: RT-ALBUTEROL/IPRATROPIUM 3 ML (DUONEB) VIAL INH SCH ×3 (01:27→11:27)
[2017-12-06] MEDS: ATORVASTATIN 10 MG (LIPITOR) TABLET PO SCH (03:03)
[2017-12-06] MEDS: lisINopril 20 MG (PRINIVIL) TABLET PO SCH (03:03)
[2017-12-06] MEDS: lamoTRIgine 25 MG (LaMICtal) TAB PO SCH (03:04)
[2017-12-06 04:00] VITALS: BP 150/66
[2017-12-06 04:50] LABS: HEMOGLOBIN 9.6 G/DL (13.3-17.7); MEAN PLATELET VOLUME 8.8 FL (7.4-10.4); RED BLOOD COUNT 3.07 10^6/uL (4.35-5.85); RED CELL DISTRIBUTION WIDTH 17.3 % (10.0-14.5); WHITE BLOOD COUNT 5.6 10^3/uL (4.3-11.0)
[2017-12-06 05:11] LABS: BUN/CREATININE RATIO 18; CALCIUM 9.3 MG/DL (8.5-10.1); CARBON DIOXIDE 26 MMOL/L (21-32); CHLORIDE 100 MMOL/L (98-107); CREATININE SERUM 0.71 MG/DL (0.60-1.30); GFR ESTIMATED > 60; GLUCOSE 98 MG/DL (70-105); POTASSIUM 4.1 MMOL/L (3.6-5.0); SODIUM 135 MMOL/L (135-145)
[2017-12-06 06:00] VITALS: BP 150/66
[2017-12-06] MEDS: CATHETER FLUSH 10 ML SYR IV SCH (06:34)
[2017-12-06] MEDS: PANTOPRAZOLE 40 MG (PROTONIX) TAB PO SCH (06:34)
[2017-12-06] MEDS: predniSONE 10 MG TAB PO SCH (06:34)
[2017-12-06 08:00] VITALS: BP 125/68
--- NOTE | 2017-12-06 08:02 | Pulmonary Progress Note ---
Subjective Time Seen by Provider: 08:00 Subjective/Events-last exam No complications noted. Sepsis Event Evaluation Height, Weight, BMI Height: 6'0.00" Weight: 183lbs. 6.0oz. 83.122100qd; 24.0 BMI Method:Stated Exam Exam Vital Signs Date Time Temp Pulse Resp B/P (MAP) Pulse Ox O2 Delivery O2 Flow Rate FiO2 12/06/17 06:00 97.6 61 16 150/66 (94) 97 Nasal Cannula 4.00 12/06/17 04:00 97.6 61 16 150/66 (94) 97 Nasal Cannula 4.00 12/06/17 01:28 96 Nasal Cannula 4.00 12/06/17 00:00 97.7 68 20 142/64 (90) 97 Nasal Cannula 4.00 12/05/17 22:27 98 Nasal Cannula 4.00 12/05/17 20:00 Nasal Cannula 4.00 12/05/17 19:40 97.8 71 16 128/60 (82) 95 Nasal Cannula 4.00 12/05/17 18:59 Nasal Cannula 4.00 12/05/17 18:52 97 Nasal Cannula 4.00 12/05/17 15:25 97.6 69 20 144/66 (92) 95 Nasal Cannula 4.00 12/05/17 14:56 95 Nasal Cannula 4.00 12/05/17 12:00 98.0 72 18 141/64 (89) 97 Nasal Cannula 3.50 12/05/17 09:56 Nasal Cannula 4.00 12/05/17 09:56 Nasal Cannula 4.00 12/05/17 09:55 95 Nasal Cannula 4.00 I & O 12/06/17 07:00 Intake Total 3110 ml Balance 3110 ml Height & Weight Height: 6'0.00" Weight: 183lbs. 6.0oz. 83.349602gf; 24.0 BMI Method:Stated General Appearance: No Apparent Distress, WD/WN HEENT: Normal ENT Inspection Neck: Full Range of Motion, Non Tender Respiratory: No Accessory Muscle Use, No Respiratory Distress, Decreased Breath Sounds Cardiovascular: Regular Rate, Rhythm Capillary Refill: Less Than 3 Seconds Gastrointestinal: non tender, soft Extremity: Normal Capillary Refill, Normal Inspection Neurologic/Psychiatric: Alert, Oriented x3 Skin: Normal Color, Warm/Dry Results Lab Laboratory Tests 12/05/17 08:30 12/06/17 04:26 Assessment/Plan Assessment/Plan COPDAE- with chronic respiratory failure SNVS. advair, - prednisone taper -oxygen therapy Acute on chronic respiratory failure - pt woke up in respiratory distress -Telemetry -labs and cxr reviewed. Anemia - monitor Nonsmall cell lung cancer with mets to bone -oncology following hx seizures -Continue to monitor -seizure precautions Pt is ok from pulmonary standpoint for discharge. I will f/u with him in 2-3 wks. RANI PACHECO DO Dec 06, 2017 08:02
[2017-12-06] MEDS: RT-ADVAIR HFA 115/21 MCG PER PUFF IH SCH (08:06)
[2017-12-06] MEDS: UMECLIDINIUM BROMIDE (INCRUSE ELLIPTA) 7'S IH SCH (08:07)
[2017-12-06] MEDS: PHENYTOIN 100 MG (DILANTIN) CAP PO SCH (08:29)
[2017-12-06] MEDS: rOPINIRole 0.25 MG (REQUIP) TAB PO SCH (08:29)
[2017-12-06] MEDS: amLODIPine 5 MG (NORVASC) TAB PO SCH (08:29)
[2017-12-06] MEDS: GABAPENTIN 600 MG (NEURONTIN) TAB PO SCH (08:29)
--- NOTE | 2017-12-06 10:14 | Progress Note-Hospitalist ---
CANDELARIA CHÁVEZ MEDICAL STUDENT 12/06/17 1014: Subjective HPI/CC On Admission Date Seen by Provider: Dec 06, 2017 Time Seen by Provider: 08:40 Dyspnea Subjective/Events-last exam Overnight, patient witnessed having seizures. He did not report this this morning. He is still very SOB and had difficulty speaking after showering. States that he is feeling about the same. Having regular BMS. Denies fever, chills, productive cough. Wants to know if lab work for cancer center can be obtained now. Focused Exam Respiratory: Chest Non Tender, Crackles (Present over left lung. ), Wheezing ( Expiratory) Cardiovascular: Regular Rate, Rhythm, Systolic Murmur Skin: warm/dry Objective Exam Vital Signs Vital Signs Date Time Temp Pulse Resp B/P (MAP) Pulse Ox O2 Delivery O2 Flow Rate FiO2 12/06/17 08:10 Nasal Cannula 4.00 12/06/17 08:07 96 12/06/17 08:00 98.5 60 18 125/68 (87) Capillary Refill : Less Than 3 SecondsLess Than 3 Seconds Results/Procedures Lab Laboratory Tests 12/06/17 04:26 Patient resulted labs reviewed. Assessment/Plan Assessment and Plan Assess & Plan/Chief Complaint 62 yo M with history of seizure disorder, lung cancer, and COPD admitted for COPD exacerbation after beeing seen recently for pneumonia. COPD exacerbation -Prednisone taper -Duonebs Q2H PRN Seizures -On [employer] anti-epileptics Dipso -Discharge home today Clinical Quality Measures DVT/VTE Risk/Contraindication: Risk Factor Score Per Nursin RFS Level Per Nursing on Admit: 4+=Very High JAMIR ELLISON DO 12/06/17 1442: Subjective HPI/CC On Admission Time Seen by Provider: 11:00 Subjective/Events-last exam Patient has a very poor prognosis and frequent hospitalizations due to severe medical issues Seizure noted before DC but this is his baseline Review of Systems Pulmonary: Dyspnea Objective Exam General Appearance: No Apparent Distress, WD/WN, Chronically ill, Thin Respiratory: Chest Non Tender, No Accessory Muscle Use, No Respiratory Distress , Crackles, Decreased Breath Sounds Cardiovascular: Regular Rate, Rhythm, No Edema, No Gallop, No JVD, No Murmur, Normal Peripheral Pulses Neurologic/Psychiatric: Alert, Oriented x3, No Motor/Sensory Deficits, Normal Mood/Affect Assessment/Plan Assessment and Plan Assess & Plan/Chief Complaint DC today See DC note CHÁVEZ,CANDELARIA MEDICAL STUDENT Dec 06, 2017 10:14 JAMIR ELLISON DO Dec 06, 2017 14:42
[2017-12-06] MEDS: ENOXAPARIN 40 MG/0.4 ML (LOVENOX) SYR SC SCH (10:55)
[2017-12-06] MEDS ORDERED: PRED10TA22 PO ×2 (11:44)
--- NOTE | 2017-12-06 11:45 | Discharge Summary-Hospitalist ---
Diagnosis/Chief Complaint Date of Admission Dec 04, 2017 at 09:11 Date of Discharge Discharge Date: Dec 06, 2017 Discharge Diagnosis (1) COPD with acute exacerbation Status: Acute (2) Chemotherapy induced neutropenia Status: Resolved (3) Hypoxia Status: Resolved (4) Seizure disorder Status: Chronic (5) GERD (gastroesophageal reflux disease) Status: Chronic (6) Lung cancer Status: Chronic Discharge Summary Discharge Physical Exam Allergies: Coded Allergies: aspirin (Unverified Allergy, Mild, DOES NOT WORK WELL W/ OTHER MEDS, ) ibuprofen (Unverified Allergy, Mild, 08/05/17) Vitals & I&Os Vital Signs Date Time Temp Pulse Resp B/P (MAP) Pulse Ox O2 Delivery O2 Flow Rate FiO2 12/06/17 13:15 60 18 125/68 96 Nasal Cannula 4.00 12/06/17 08:00 98.5 General Appearance: No Apparent Distress, WD/WN, Chronically ill HEENT: PERRL/EOMI, TMs Normal, Normal ENT Inspection, Pharynx Normal Respiratory: Chest Non Tender, No Accessory Muscle Use, No Respiratory Distress , Crackles, Decreased Breath Sounds Cardiovascular: Regular Rate, Rhythm, No Edema, No Gallop, No JVD, No Murmur, Normal Peripheral Pulses Gastrointestinal: Normal Bowel Sounds, No Organomegaly, No Pulsatile Mass, Non Tender, Soft Extremity: Normal Capillary Refill, Normal Inspection, Normal Range of Motion, Non Tender, No Calf Tenderness, No Pedal Edema Skin: Normal Color, Warm/Dry Neurologic/Psychiatric: Alert, Oriented x3, No Motor/Sensory Deficits, Normal Mood/Affect Hospital Course Hospital course: patient had an uneventful hospital course. Patient was admitted for AECOPD after recent pneumonia and pulmonary consultation was required due to the severity of his lung condition. Patient tolerated IV steroids well and overall improved but he has a very poor prognosis and likely will continue multiple hospitalizations in the future due to the inability to modify his lung disease superimposed with cancer. Seizure noted before DC but he has frequent seizures when he is on prednisone so he wanted to go home and he does have support at home. Labs (last 24 hrs) Laboratory Tests 12/06/17 04:26: White Blood Count 5.6, Red Blood Count 3.07L, Hemoglobin 9.6L, Hematocrit 29L, Mean Corpuscular Volume 95, Mean Corpuscular Hemoglobin 31, Mean Corpuscular Hemoglobin Concent 33, Red Cell Distribution Width 17.3H, Platelet Count 199, Mean Platelet Volume 8.8, Sodium Level 135, Potassium Level 4.1, Chloride Level 100, Carbon Dioxide Level 26, Anion Gap 9, Blood Urea Nitrogen 13, Creatinine 0.71, Estimat Glomerular Filtration Rate > 60, BUN/Creatinine Ratio 18, Glucose Level 98, Calcium Level 9.3 Patient resulted labs reviewed. Pending Labs Discussion & Recommendations Discharge Planning: <30 minutes discharge planning Discharge Home Medications: Active Scripts Active Prednisone 10 Mg Tab.ds.pk 10 Mg PO DAILY Take 6 tabs(60mg)daily,decrease by 1 tab(10MG)daily. Reported Protonix (Pantoprazole Sodium) 40 Mg Tablet.dr 40 Mg PO DAILY Advair 250-50 Diskus (Fluticasone/Salmeterol) 1 Each Blst.w.dev 1 Puff INH BID Atorvastatin Calcium 10 Mg Tablet 10 Mg PO 0300 Meloxicam 15 Mg Tablet 15 Mg PO 1500 Ropinirole HCl 0.25 Mg Tablet 0.25 Mg PO 0800,1500,2300 Carbamazepine 200 Mg Tablet 400 Mg PO 1500 TAKES 2 (200 MG) TABLETS Amlodipine Besylate 5 Mg Tablet 5 Mg PO 0800 Lamotrigine 25 Mg Tablet 25 Mg PO 1500,0300 Lisinopril 20 Mg Tablet 20 Mg PO 0300 Proair Hfa (Albuterol Sulfate) 1 Puff Puff 2 Puff IH Q6H PRN 1 PUFF = 90 MCG Spiriva (Tiotropium [place]) 1 Inh Aerp 1 Cap IH DAILY Albuterol Sulfate 2.5 Mg/3 Ml Vial.neb 2.5 Mg NEB 5XD PRN Tegretol (Carbamazepine) 200 Mg Tablet 200 Mg PO 0800,2300,0300 Phenytoin Sodium Extended 100 Mg Capsule 100 Mg PO 2300 Phenytoin Sodium Extended 100 Mg Capsule 200 Mg PO 0800,1500 TAKES 2 (100 MG) CAPSULES Gabapentin 600 Mg Tablet 600 Mg PO 0800,1500 Gabapentin 300 Mg Capsule 300 Mg PO 2300 Lamotrigine 100 Mg Tablet 100 Mg PO 1500,2300 Instructions to patient/family Please see electronic discharge instructions given to patient. Clinical Quality Measures DVT/VTE Risk/Contraindication: Risk Factor Score Per Nursin RFS Level Per Nursing on Admit: 4+=Very High Problem Qualifiers (1) Lung cancer: Laterality: unspecified laterality Lung location: unspecified part of lung Qualified Codes: C34.90 - Malignant neoplasm of unspecified part of unspecified bronchus or lung JAMIR ELLISON DO Dec 06, 2017 11:45
[2017-12-06 13:15] VITALS: BP 125/68
--- OUTSIDE RECORDS SUMMARY | 2017-12-08 15:59 | XMS REPORT | Clinical Summary ---
Author Author [facility] Organization [facility] Address Unknown Phone Unavailable Care Team Providers Care Transportation Security Officer Name Role Phone Efra Valentino MD Unavailable Source Comments Some departments are not documenting in the electronic medical record. If you do not see the information that you expected, contact Release of Information in the Health Information Management department at [phone] for further assistance in locating additional records.[facility] Allergies Active Allergy Reactions Severity Noted Date [...] 16 Active Problems Problem Noted Date Seizures ([facility]) 10/22/2013 Hemiparesis ([facility]) 10/22/2013 Asthma 10/22/2013 COPD (chronic obstructive pulmonary disease) ([facility]) 10/22/2013 Hyperlipidemia 10/22/2013 Weight loss [...]
--- NOTE | 2017-12-08 17:16 | Physician Query Clarification ---
PQ-Conflicting Diagnosis Admission/Discharge Admission Date: Dec 04, 2017 at 09:11 Discharge Date: Dec 06, 2017 at 13:15 The medical record reflects the following clinical scenario: History/Risk Factors: Emphysema exacerbation, Metastatic lung CA to bone, Neutropenia due to chemo Clinical Findings: Accessory muscle use, SOB progressively worse, wheezing Treatment: Solu-Medrol, Albuterol Question: Do you agree with the impression of the acute on chronic respiratory failure per Dr. Bernal. Please document a response below. PHYSICIAN RESPONSE Do you agree w/Consulting Dx?: Yes In responding to this query, please exercise your independent professional judgment. The purpose of this communication is to more accurately reflect the complexity of your patients condition. The fact that a question is asked does not imply that any particular answer is desired or expected. Thank you for your timely response to this clarification. Requestors name: Juan THIS PHYSICIAN QUERY FORM IS A PERMANENT PART OF THE MEDICAL RECORD JUAN VILLA Dec 08, 2017 17:16 JAMIR ELLISON DO Dec 09, 2017 07:00
== END 2017-12-06 13:15 | disposition home or self-care (01) | DRG 189 ==
LOC: EDUNIT# 05:36 → ER 05:38 → 4TH 07:45 → UNDOADMOB 07:45 → 4TH 09:11 → OBSVTOIN 09:11 → INTOOBSV 09:11 → UNDODISIN 12-06 13:15
PROVIDERS: ADMIT Family Medicine; ATTEND Family Medicine
DX: J96.21 Acute and chronic respiratory failure with hypoxia (principal); J43.9 Emphysema, unspecified; G40.909 Epilepsy, unspecified, not intractable, without status epilepticus; C34.12 Malignant neoplasm of upper lobe, left bronchus or lung; C79.51 Secondary malignant neoplasm of bone; G47.30 Sleep apnea, unspecified; D70.2 Other drug-induced agranulocytosis; T45.1X5A Adverse effect of antineoplastic and immunosuppressive drugs, initial encounter
CPT/HCPCS: 36415; 71046; 71275; 80048; 80053; 85025; 85027; 85379; 86141; 94640; 94760; 96374

== ENCOUNTER 2017-12-10 06:22 | Outpatient (CLI) | payer MEDICAID ==
[~2017-12-10] VITALS: Ht 182.9 cm; Wt 77.1 kg
[~2017-12-10 06:22] MED LIST changes: +PRED10TA22 PO
== END 2017-12-10 14:11 | disposition home or self-care (01) ==
LOC: PREOP 06:22
PROVIDERS: ATTEND Specialist
DX: Z01.818 Encounter for other preprocedural examination (principal)

== ENCOUNTER 2017-12-12 10:20 | Day surgery (SDC) | payer MEDICAID ==
[~2017-12-12] VITALS: Ht 182.9 cm; Wt 77.1 kg
[2017-12-12] MEDS ORDERED: LIDOCAINE PF 1% 2 ML AMP IR PRN (10:30)
[2017-12-12] MEDS ORDERED: VANCOMYCIN/BSS (COMPOUNDED) 10 MG/ML SYR OP ONE (10:30)
[2017-12-12] MEDS ORDERED: POVIDONE (BETADINE) OPHTH SOLN 5% 30 ML OP ONE (10:30)
[2017-12-12] MEDS ORDERED: TIMOLOL MALEATE 0.5% 5 ML (TIMOPTIC) BTL OU PRN (10:30)
[2017-12-12] MEDS ORDERED: EPINEPHrine INJECTION 1 MG/ML AMP INJ ONE (10:30)
[2017-12-12 10:34] VITALS: BP 108/70
[2017-12-12] MEDS: TETRACAINE 0.5% OPHTH SOLN 4 ML BTL (SINGLE DOSE ONLY) OU PRN ×4 (10:39→10:58)
[2017-12-12] MEDS: PHENYLEPHRINE 10% OPHTH (NEO-SYN) 5 ML BTL OU SCH ×3 (10:45→10:58)
[2017-12-12] MEDS: CYCLOPENTOLATE 1% (CYCLOGYL) 2 ML DROPS OP SCH ×3 (10:45→10:58)
[2017-12-12] MEDS ORDERED: MIDAZOLAM 2 MG/2 ML (VERSED) VIAL ONE (11:06)
--- NOTE | 2017-12-12 11:19 | Ophthalmologist Pre-Op Note ---
Pre-Operative Progress Note H&P Reviewed The H&P was reviewed, patient examined and no changes noted. Date H&P Reviewed: Dec 12, 2017 Time H&P Reviewed: 11:19 Pre-Op Dx Cataract, Left Eye KURT MOHR MD Dec 12, 2017 11:19
--- NOTE | 2017-12-12 11:44 | Ophthalmology Operative Report ---
Cataract removal/placement IOL PREOPERATIVE DIAGNOSIS: Cataract Left Eye POSTOPERATIVE DIAGNOSIS: Cataract Left Eye PROCEDURE: Cataract removal and placement of posterior chamber implant, left eye SURGEON: David Mohr ANESTHESIA: Topical with sedation COMPLICATIONS: None ESTIMATED BLOOD LOSS: Minimal DESCRIPTION OF PROCEDURE: After proper informed consent was obtained, the patient, a 62 male, was taken to the Operating Room and the left eye was anesthetized with tetracaine. The left eye was then prepped and draped in the usual manner. A wire lid speculum was placed. A paracentesis was made at the left hand position. Preservative free lidocaine was injected into the anterior chamber followed by viscoelastic. A clear corneal incision was made in the temporal position. A capsulorrhexis was preformed and the central nuclear and cortical material were removed. The posterior capsule was polished and an Edson 15.0 AU00T0 IOL was placed into the capsular bag. The residual viscoelastic was aspirated and balanced saline solution was injected into the anterior chamber. Vancomycin was injected into the anterior chamber. The wound was checked and found to be water tight. The patient tolerated the procedure well without complications. DAVID MOHR MD Dec 12, 2017 11:44
[2017-12-12 12:10] VITALS: BP 133/65
--- NOTE | 2017-12-12 13:28 | Anesthesia-General Post-Op ---
MAC Patient Condition Mental Status/LOC: Same as Preop Cardiovascular: Satisfactory Nausea/Vomiting: Absent Respiratory: Satisfactory Pain: Controlled Complications: Absent Post Op Complications Complications None Follow Up Care/Instructions Patient Instructions None needed. Anesthesiology Discharge Order Discharge Order Patient is doing well, no complaints, stable vital signs, no apparent adverse anesthesia problems. No complications reported per nursing. FADUMO SANTIAGO CRNA Dec 12, 2017 13:28
== END 2017-12-12 12:10 | disposition home or self-care (01) ==
LOC: SDC 10:20
PROVIDERS: ATTEND Specialist
DX: H25.12 Age-related nuclear cataract, left eye (principal); I10 Essential (primary) hypertension; C34.90 Malignant neoplasm of unspecified part of unspecified bronchus or lung; Z87.891 Personal history of nicotine dependence; Z79.52 Long term (current) use of systemic steroids; Z79.899 Other long term (current) drug therapy

== ENCOUNTER 2017-12-22 05:39 | Outpatient (CLI) | payer MEDICAID ==
[~2017-12-22] VITALS: Ht 182.9 cm; Wt 77.1 kg
== END 2017-12-22 14:34 | disposition home or self-care (01) ==
LOC: PREOP 05:39
PROVIDERS: ATTEND Specialist
DX: Z01.818 Encounter for other preprocedural examination (principal)

== ENCOUNTER 2017-12-24 08:01 | Day surgery (SDC) | payer MEDICAID ==
[~2017-12-24] VITALS: Ht 182.9 cm; Wt 77.1 kg
[2017-12-24] MEDS ORDERED: LIDOCAINE PF 1% 2 ML AMP IR PRN (08:15)
[2017-12-24] MEDS ORDERED: TIMOLOL MALEATE 0.5% 5 ML (TIMOPTIC) BTL OU PRN (08:15)
[2017-12-24] MEDS ORDERED: POVIDONE (BETADINE) OPHTH SOLN 5% 30 ML OP ONE (08:15)
[2017-12-24] MEDS ORDERED: EPINEPHrine INJECTION 1 MG/ML AMP INJ ONE (08:15)
[2017-12-24] MEDS ORDERED: MOXIFLOXACIN OPHTH SOLN 5 MG/ML 0.3 ML SYRINGE OP ONE (08:15)
[2017-12-24] MEDS: TETRACAINE 0.5% OPHTH SOLN 4 ML BTL (SINGLE DOSE ONLY) OU PRN ×4 (08:22→08:39)
[2017-12-24 08:25] VITALS: BP 164/80
[2017-12-24] MEDS: CYCLOPENTOLATE 1% (CYCLOGYL) 2 ML DROPS OP SCH ×3 (08:32→08:40)
[2017-12-24] MEDS: PHENYLEPHRINE 10% OPHTH (NEO-SYN) 5 ML BTL OU SCH ×3 (08:32→08:40)
[2017-12-24] MEDS ORDERED: MIDAZOLAM 2 MG/2 ML (VERSED) VIAL ONE (08:49)
--- NOTE | 2017-12-24 09:02 | Ophthalmologist Pre-Op Note ---
Pre-Operative Progress Note H&P Reviewed The H&P was reviewed, patient examined and no changes noted. Date H&P Reviewed: Dec 24, 2017 Time H&P Reviewed: 09:02 Pre-Op Dx Cataract, Right Eye KURT MOHR MD Dec 24, 2017 09:02
--- NOTE | 2017-12-24 09:37 | Ophthalmology Operative Report ---
Cataract removal/placement IOL PREOPERATIVE DIAGNOSIS: Cataract Right Eye POSTOPERATIVE DIAGNOSIS: Cataract Right Eye PROCEDURE: Cataract removal and placement of posterior chamber implant, right eye SURGEON: David Mohr ANESTHESIA: Topical with sedation COMPLICATIONS: None ESTIMATED BLOOD LOSS: Minimal DESCRIPTION OF PROCEDURE: After proper informed consent was obtained, the patient, a 62 male, was taken to the Operating Room and the right eye was anesthetized with tetracaine. The right eye was then prepped and draped in the usual manner. A wire lid speculum was placed. A paracentesis was made at the left hand position. Preservative free lidocaine was injected into the anterior chamber followed by viscoelastic. A clear corneal incision was made in the temporal position. A capsulorrhexis was preformed and the central nuclear and cortical material were removed. The posterior capsule was polished and Edson 16.0 AU00T0 IOL was placed into the capsular bag. The residual viscoelastic was aspirated and balanced saline solution was injected into the anterior chamber. Moxifloxacin was injected into the anterior chamber. The wound was checked and found to be water tight. The patient tolerated the procedure well without complications. DAVID MOHR MD Dec 24, 2017 09:37
[2017-12-24 09:47] VITALS: BP 157/88
--- NOTE | 2017-12-24 11:10 | Anesthesia-General Post-Op ---
MAC Patient Condition Mental Status/LOC: Same as Preop Cardiovascular: Satisfactory Nausea/Vomiting: Absent Respiratory: Satisfactory Pain: Controlled Complications: Absent Post Op Complications Complications None Follow Up Care/Instructions Patient Instructions None needed. Anesthesiology Discharge Order Discharge Order Patient is doing well, no complaints, stable vital signs, no apparent adverse anesthesia problems. No complications reported per nursing. IRVIN VITAL CRNA Dec 24, 2017 11:10
== END 2017-12-24 09:47 | disposition home or self-care (01) ==
LOC: SDC 08:01
PROVIDERS: ATTEND Specialist
DX: H26.9 Unspecified cataract (principal); I10 Essential (primary) hypertension; G40.909 Epilepsy, unspecified, not intractable, without status epilepticus; E78.00 Pure hypercholesterolemia, unspecified; C34.91 Malignant neoplasm of unspecified part of right bronchus or lung; J45.909 Unspecified asthma, uncomplicated; E78.5 Hyperlipidemia, unspecified; Z79.899 Other long term (current) drug therapy

== ENCOUNTER 2017-12-26 13:12 | Outpatient (RCR) | payer MEDICAID ==
[2017-10-02 14:48] LABS: BASOPHILS % (AUTO) 0 % (0-10); EOSINOPHILS % (AUTO) 0 % (0-10); HEMATOCRIT 32 % (40-54); HEMOGLOBIN 10.5 G/DL (13.3-17.7); LYMPHOCYTES # (AUTO) 0.9 X 10^3 (1.0-4.0); LYMPHOCYTES % (AUTO) 15 % (12-44); MEAN CORPUSCULAR HEMOGLOBIN 29 PG (25-34); MEAN CORPUSCULAR HGB CONC 33 G/DL (32-36); MEAN CORPUSCULAR VOLUME 88 FL (80-99); MEAN PLATELET VOLUME 8.4 FL (7.4-10.4); MONOCYTES % (AUTO) 15 % (0-12); NEUTROPHILS # (AUTO) 4.3 X 10^3 (1.8-7.8); NEUTROPHILS % (AUTO) 69 % (42-75); PLATELET COUNT 270 10^3/uL (130-400); RED BLOOD COUNT 3.62 10^6/uL (4.35-5.85); RED CELL DISTRIBUTION WIDTH 15.7 % (10.0-14.5); WHITE BLOOD COUNT 6.2 10^3/uL (4.3-11.0)
[2017-10-02 15:06] LABS: BUN/CREATININE RATIO 21; CARBON DIOXIDE 29 MMOL/L (21-32); CHLORIDE 99 MMOL/L (98-107); CREATININE SERUM 0.72 MG/DL (0.60-1.30); GFR ESTIMATED > 60; GLUCOSE 94 MG/DL (70-105); POTASSIUM 4.7 MMOL/L (3.6-5.0); SODIUM 134 MMOL/L (135-145)
[2017-10-02 15:18] LABS: CALCIUM 9.1 MG/DL (8.5-10.1)
[2017-10-09 13:42] LABS: BASOPHILS # (AUTO) 0.1 10^3/uL (0.0-0.1); BASOPHILS % (AUTO) 2 % (0-10); EOSINOPHILS % (AUTO) 0 % (0-10); HEMATOCRIT 32 % (40-54); HEMOGLOBIN 10.7 G/DL (13.3-17.7); LYMPHOCYTES % (AUTO) 24 % (12-44); MEAN CORPUSCULAR HEMOGLOBIN 29 PG (25-34); MEAN CORPUSCULAR HGB CONC 33 G/DL (32-36); MEAN CORPUSCULAR VOLUME 88 FL (80-99); MEAN PLATELET VOLUME 8.3 FL (7.4-10.4); MONOCYTES # (AUTO) 0.6 X 10^3 (0.0-1.0); MONOCYTES % (AUTO) 15 % (0-12); NEUTROPHILS # (AUTO) 2.4 X 10^3 (1.8-7.8); NEUTROPHILS % (AUTO) 59 % (42-75); PLATELET COUNT 269 10^3/uL (130-400); RED BLOOD COUNT 3.64 10^6/uL (4.35-5.85); RED CELL DISTRIBUTION WIDTH 16.4 % (10.0-14.5); WHITE BLOOD COUNT 4.2 10^3/uL (4.3-11.0)
[2017-10-09 14:01] LABS: ALANINE AMINOTRANSFERASE 7 U/L (0-55); ALBUMIN 4.1 GM/DL (3.2-4.5); ALKALINE PHOSPHATASE 118 U/L (40-136); BILIRUBIN,TOTAL 0.2 MG/DL (0.1-1.0); BUN/CREATININE RATIO 16; CARBON DIOXIDE 26 MMOL/L (21-32); CHLORIDE 100 MMOL/L (98-107); CREATININE SERUM 0.73 MG/DL (0.60-1.30); GFR ESTIMATED > 60; GLUCOSE 84 MG/DL (70-105); MAGNESIUM 2.3 MG/DL (1.8-2.4); POTASSIUM 4.6 MMOL/L (3.6-5.0); SODIUM 134 MMOL/L (135-145)
[2017-10-16 14:08] LABS: BASOPHILS % (AUTO) 1 % (0-10); EOSINOPHILS % (AUTO) 0 % (0-10); HEMATOCRIT 31 % (40-54); HEMOGLOBIN 9.9 G/DL (13.3-17.7); LYMPHOCYTES # (AUTO) 0.7 X 10^3 (1.0-4.0); LYMPHOCYTES % (AUTO) 24 % (12-44); MEAN CORPUSCULAR HEMOGLOBIN 29 PG (25-34); MEAN CORPUSCULAR HGB CONC 32 G/DL (32-36); MEAN CORPUSCULAR VOLUME 90 FL (80-99); MEAN PLATELET VOLUME 8.6 FL (7.4-10.4); MONOCYTES # (AUTO) 0.3 X 10^3 (0.0-1.0); MONOCYTES % (AUTO) 12 % (0-12); NEUTROPHILS # (AUTO) 1.8 X 10^3 (1.8-7.8); NEUTROPHILS % (AUTO) 64 % (42-75); PLATELET COUNT 183 10^3/uL (130-400); RED BLOOD COUNT 3.43 10^6/uL (4.35-5.85); RED CELL DISTRIBUTION WIDTH 16.6 % (10.0-14.5); WHITE BLOOD COUNT 2.9 10^3/uL (4.3-11.0)
[2017-10-16 14:30] LABS: BUN/CREATININE RATIO 16; CARBON DIOXIDE 30 MMOL/L (21-32); CHLORIDE 100 MMOL/L (98-107); GFR ESTIMATED > 60; GLUCOSE 103 MG/DL (70-105); POTASSIUM 4.6 MMOL/L (3.6-5.0); SODIUM 135 MMOL/L (135-145)
[2017-10-23 14:20] LABS: BASOPHILS % (AUTO) 1 % (0-10); EOSINOPHILS % (AUTO) 0 % (0-10); HEMATOCRIT 31 % (40-54); HEMOGLOBIN 10.7 G/DL (13.3-17.7); LYMPHOCYTES # (AUTO) 0.7 X 10^3 (1.0-4.0); LYMPHOCYTES % (AUTO) 20 % (12-44); MEAN CORPUSCULAR HEMOGLOBIN 30 PG (25-34); MEAN CORPUSCULAR HGB CONC 35 G/DL (32-36); MEAN CORPUSCULAR VOLUME 88 FL (80-99); MEAN PLATELET VOLUME 8.7 FL (7.4-10.4); MONOCYTES # (AUTO) 0.6 X 10^3 (0.0-1.0); MONOCYTES % (AUTO) 17 % (0-12); NEUTROPHILS # (AUTO) 2.2 X 10^3 (1.8-7.8); NEUTROPHILS % (AUTO) 62 % (42-75); PLATELET COUNT 207 10^3/uL (130-400); RED BLOOD COUNT 3.52 10^6/uL (4.35-5.85); RED CELL DISTRIBUTION WIDTH 16.3 % (10.0-14.5); WHITE BLOOD COUNT 3.5 10^3/uL (4.3-11.0)
[2017-10-23 14:36] LABS: BUN/CREATININE RATIO 15; CALCIUM 9.3 MG/DL (8.5-10.1); CARBON DIOXIDE 26 MMOL/L (21-32); CHLORIDE 96 MMOL/L (98-107); CREATININE SERUM 0.74 MG/DL (0.60-1.30); GFR ESTIMATED > 60; GLUCOSE 98 MG/DL (70-105); POTASSIUM 4.7 MMOL/L (3.6-5.0); SODIUM 129 MMOL/L (135-145)
[2017-11-06 13:40] LABS: BASOPHILS % (AUTO) 1 % (0-10); EOSINOPHILS % (AUTO) 0 % (0-10); HEMATOCRIT 30 % (40-54); HEMOGLOBIN 9.8 G/DL (13.3-17.7); LYMPHOCYTES # (AUTO) 0.8 X 10^3 (1.0-4.0); LYMPHOCYTES % (AUTO) 21 % (12-44); MEAN CORPUSCULAR HEMOGLOBIN 30 PG (25-34); MEAN CORPUSCULAR HGB CONC 33 G/DL (32-36); MEAN CORPUSCULAR VOLUME 91 FL (80-99); MEAN PLATELET VOLUME 8.1 FL (7.4-10.4); MONOCYTES # (AUTO) 0.7 X 10^3 (0.0-1.0); MONOCYTES % (AUTO) 18 % (0-12); NEUTROPHILS # (AUTO) 2.2 X 10^3 (1.8-7.8); NEUTROPHILS % (AUTO) 59 % (42-75); PLATELET COUNT 268 10^3/uL (130-400); RED BLOOD COUNT 3.27 10^6/uL (4.35-5.85); RED CELL DISTRIBUTION WIDTH 16.9 % (10.0-14.5); WHITE BLOOD COUNT 3.7 10^3/uL (4.3-11.0)
[2017-11-06 14:07] LABS: ALANINE AMINOTRANSFERASE 10 U/L (0-55); ALKALINE PHOSPHATASE 121 U/L (40-136); BILIRUBIN,TOTAL 0.2 MG/DL (0.1-1.0); BUN/CREATININE RATIO 14; CALCIUM 8.9 MG/DL (8.5-10.1); CARBON DIOXIDE 26 MMOL/L (21-32); CHLORIDE 101 MMOL/L (98-107); CREATININE SERUM 0.73 MG/DL (0.60-1.30); GFR ESTIMATED > 60; GLUCOSE 119 MG/DL (70-105); MAGNESIUM 2.1 MG/DL (1.8-2.4); SODIUM 134 MMOL/L (135-145); TOTAL PROTEIN 6.5 GM/DL (6.4-8.2)
[2017-11-13 13:43] LABS: BASOPHILS % (AUTO) 1 % (0-10); EOSINOPHILS % (AUTO) 0 % (0-10); HEMATOCRIT 32 % (40-54); HEMOGLOBIN 10.7 G/DL (13.3-17.7); LYMPHOCYTES # (AUTO) 0.9 X 10^3 (1.0-4.0); LYMPHOCYTES % (AUTO) 19 % (12-44); MEAN CORPUSCULAR HEMOGLOBIN 30 PG (25-34); MEAN CORPUSCULAR HGB CONC 33 G/DL (32-36); MEAN CORPUSCULAR VOLUME 90 FL (80-99); MEAN PLATELET VOLUME 8.5 FL (7.4-10.4); MONOCYTES # (AUTO) 0.7 X 10^3 (0.0-1.0); MONOCYTES % (AUTO) 16 % (0-12); NEUTROPHILS # (AUTO) 2.9 X 10^3 (1.8-7.8); NEUTROPHILS % (AUTO) 65 % (42-75); PLATELET COUNT 242 10^3/uL (130-400); RED BLOOD COUNT 3.58 10^6/uL (4.35-5.85); RED CELL DISTRIBUTION WIDTH 16.8 % (10.0-14.5); WHITE BLOOD COUNT 4.5 10^3/uL (4.3-11.0)
[2017-11-13 14:04] LABS: BUN/CREATININE RATIO 18; CALCIUM 9.1 MG/DL (8.5-10.1); CARBON DIOXIDE 27 MMOL/L (21-32); CHLORIDE 96 MMOL/L (98-107); CREATININE SERUM 0.77 MG/DL (0.60-1.30); GFR ESTIMATED > 60; GLUCOSE 97 MG/DL (70-105); POTASSIUM 4.6 MMOL/L (3.6-5.0); SODIUM 130 MMOL/L (135-145)
[2017-11-20 13:38] LABS: BASOPHILS % (AUTO) 1 % (0-10); EOSINOPHILS % (AUTO) 0 % (0-10); HEMATOCRIT 31 % (40-54); HEMOGLOBIN 10.2 G/DL (13.3-17.7); LYMPHOCYTES # (AUTO) 0.4 X 10^3 (1.0-4.0); LYMPHOCYTES % (AUTO) 10 % (12-44); MEAN CORPUSCULAR HEMOGLOBIN 30 PG (25-34); MEAN CORPUSCULAR HGB CONC 33 G/DL (32-36); MEAN CORPUSCULAR VOLUME 92 FL (80-99); MEAN PLATELET VOLUME 8.6 FL (7.4-10.4); MONOCYTES # (AUTO) 0.1 X 10^3 (0.0-1.0); MONOCYTES % (AUTO) 3 % (0-12); NEUTROPHILS # (AUTO) 3.5 X 10^3 (1.8-7.8); NEUTROPHILS % (AUTO) 86 % (42-75); PLATELET COUNT 226 10^3/uL (130-400); RED BLOOD COUNT 3.41 10^6/uL (4.35-5.85); RED CELL DISTRIBUTION WIDTH 16.9 % (10.0-14.5)
[2017-11-20 13:58] LABS: BUN/CREATININE RATIO 17; CALCIUM 8.8 MG/DL (8.5-10.1); CARBON DIOXIDE 31 MMOL/L (21-32); CHLORIDE 99 MMOL/L (98-107); CREATININE SERUM 0.71 MG/DL (0.60-1.30); GFR ESTIMATED > 60; GLUCOSE 127 MG/DL (70-105); POTASSIUM 4.6 MMOL/L (3.6-5.0); SODIUM 135 MMOL/L (135-145)
[2017-11-26 09:09] LABS: BASOPHILS % (AUTO) 1 % (0-10); EOSINOPHILS % (AUTO) 0 % (0-10); HEMATOCRIT 30 % (40-54); HEMOGLOBIN 9.8 G/DL (13.3-17.7); LYMPHOCYTES # (AUTO) 0.5 X 10^3 (1.0-4.0); LYMPHOCYTES % (AUTO) 9 % (12-44); MEAN CORPUSCULAR HEMOGLOBIN 31 PG (25-34); MEAN CORPUSCULAR HGB CONC 33 G/DL (32-36); MEAN CORPUSCULAR VOLUME 93 FL (80-99); MEAN PLATELET VOLUME 8.6 FL (7.4-10.4); MONOCYTES # (AUTO) 0.4 X 10^3 (0.0-1.0); MONOCYTES % (AUTO) 6 % (0-12); NEUTROPHILS # (AUTO) 5.1 X 10^3 (1.8-7.8); NEUTROPHILS % (AUTO) 85 % (42-75); PLATELET COUNT 199 10^3/uL (130-400); RED BLOOD COUNT 3.19 10^6/uL (4.35-5.85); RED CELL DISTRIBUTION WIDTH 17.1 % (10.0-14.5)
[2017-11-26 09:32] LABS: BUN/CREATININE RATIO 21; CARBON DIOXIDE 26 MMOL/L (21-32); CHLORIDE 98 MMOL/L (98-107); CREATININE SERUM 0.75 MG/DL (0.60-1.30); GFR ESTIMATED > 60; GLUCOSE 115 MG/DL (70-105); POTASSIUM 4.7 MMOL/L (3.6-5.0); SODIUM 132 MMOL/L (135-145)
[2017-12-11 13:55] LABS: BASOPHILS % (AUTO) 0 % (0-10); EOSINOPHILS % (AUTO) 0 % (0-10); HEMATOCRIT 30 % (40-54); LYMPHOCYTES # (AUTO) 0.7 X 10^3 (1.0-4.0); LYMPHOCYTES % (AUTO) 15 % (12-44); MEAN CORPUSCULAR HEMOGLOBIN 31 PG (25-34); MEAN CORPUSCULAR HGB CONC 33 G/DL (32-36); MEAN CORPUSCULAR VOLUME 95 FL (80-99); MEAN PLATELET VOLUME 8.3 FL (7.4-10.4); MONOCYTES # (AUTO) 0.9 X 10^3 (0.0-1.0); MONOCYTES % (AUTO) 19 % (0-12); NEUTROPHILS % (AUTO) 66 % (42-75); PLATELET COUNT 205 10^3/uL (130-400); RED CELL DISTRIBUTION WIDTH 16.9 % (10.0-14.5); WHITE BLOOD COUNT 4.6 10^3/uL (4.3-11.0)
[2017-12-11 14:16] LABS: ALANINE AMINOTRANSFERASE 8 U/L (0-55); ALKALINE PHOSPHATASE 110 U/L (40-136); BILIRUBIN,TOTAL 0.2 MG/DL (0.1-1.0); BUN/CREATININE RATIO 16; CALCIUM 8.4 MG/DL (8.5-10.1); CARBON DIOXIDE 26 MMOL/L (21-32); CHLORIDE 99 MMOL/L (98-107); CREATININE SERUM 0.69 MG/DL (0.60-1.30); GFR ESTIMATED > 60; GLUCOSE 90 MG/DL (70-105); MAGNESIUM 2.3 MG/DL (1.8-2.4); POTASSIUM 4.2 MMOL/L (3.6-5.0); SODIUM 133 MMOL/L (135-145); TOTAL PROTEIN 6.5 GM/DL (6.4-8.2)
[2017-12-18 14:18] LABS: BASOPHILS % (AUTO) 1 % (0-10); EOSINOPHILS % (AUTO) 0 % (0-10); HEMATOCRIT 30 % (40-54); HEMOGLOBIN 9.9 G/DL (13.3-17.7); LYMPHOCYTES # (AUTO) 0.7 X 10^3 (1.0-4.0); LYMPHOCYTES % (AUTO) 17 % (12-44); MEAN CORPUSCULAR HEMOGLOBIN 32 PG (25-34); MEAN CORPUSCULAR HGB CONC 34 G/DL (32-36); MEAN CORPUSCULAR VOLUME 94 FL (80-99); MEAN PLATELET VOLUME 8.6 FL (7.4-10.4); MONOCYTES # (AUTO) 0.6 X 10^3 (0.0-1.0); MONOCYTES % (AUTO) 15 % (0-12); NEUTROPHILS # (AUTO) 2.6 X 10^3 (1.8-7.8); NEUTROPHILS % (AUTO) 68 % (42-75); PLATELET COUNT 204 10^3/uL (130-400); RED BLOOD COUNT 3.13 10^6/uL (4.35-5.85); RED CELL DISTRIBUTION WIDTH 15.5 % (10.0-14.5); WHITE BLOOD COUNT 3.8 10^3/uL (4.3-11.0)
[2017-12-18 14:43] LABS: BUN/CREATININE RATIO 13; CALCIUM 9.3 MG/DL (8.5-10.1); CARBON DIOXIDE 28 MMOL/L (21-32); CHLORIDE 98 MMOL/L (98-107); GFR ESTIMATED > 60; GLUCOSE 92 MG/DL (70-105); POTASSIUM 4.4 MMOL/L (3.6-5.0); SODIUM 133 MMOL/L (135-145)
[~2017-12-26] VITALS: Ht 180.3 cm; Wt 79.4 kg
[~2017-12-26 13:12] MED LIST changes: +CARBOPLATIN 160 MG in D5W 50 ML IV(CANCER CTR) 50 ML IV SCH; +FAMOTIDINE 20MG/2ML IV (CANCER CTR) IV SCH; +NS IV 1000 ML (CANCER CTR) IV SCH; +ONDANSETRON MDV (CANCER CENTER 16 MG, DEXAMETHASONE INJ (CANCER CTR) 4 MG in NS (IVPB) ... IV SCH; +PACLITAXEL 140 MG in NORMAL SALINE (CANCER CENTER) 250 ML IV SCH; +diphenhydrAMINE 25 MG TAB (BENADRYL) CANCER CENTER PO SCH
[2017-12-26 13:41] LABS: BASOPHILS % (AUTO) 0 % (0-10); EOSINOPHILS % (AUTO) 0 % (0-10); HEMATOCRIT 29 % (40-54); HEMOGLOBIN 9.7 G/DL (13.3-17.7); LYMPHOCYTES # (AUTO) 0.7 X 10^3 (1.0-4.0); LYMPHOCYTES % (AUTO) 29 % (12-44); MEAN CORPUSCULAR HEMOGLOBIN 32 PG (25-34); MEAN CORPUSCULAR HGB CONC 34 G/DL (32-36); MEAN CORPUSCULAR VOLUME 94 FL (80-99); MEAN PLATELET VOLUME 8.2 FL (7.4-10.4); MONOCYTES # (AUTO) 0.3 X 10^3 (0.0-1.0); MONOCYTES % (AUTO) 13 % (0-12); NEUTROPHILS # (AUTO) 1.5 X 10^3 (1.8-7.8); NEUTROPHILS % (AUTO) 58 % (42-75); PLATELET COUNT 188 10^3/uL (130-400); RED BLOOD COUNT 3.06 10^6/uL (4.35-5.85); RED CELL DISTRIBUTION WIDTH 15.1 % (10.0-14.5); WHITE BLOOD COUNT 2.5 10^3/uL (4.3-11.0)
[2017-12-26 14:01] LABS: ALANINE AMINOTRANSFERASE 7 U/L (0-55); ALKALINE PHOSPHATASE 126 U/L (40-136); BILIRUBIN,TOTAL 0.2 MG/DL (0.1-1.0); BUN/CREATININE RATIO 15; CALCIUM 9.1 MG/DL (8.5-10.1); CARBON DIOXIDE 26 MMOL/L (21-32); CHLORIDE 99 MMOL/L (98-107); CREATININE SERUM 0.78 MG/DL (0.60-1.30); GFR ESTIMATED > 60; GLUCOSE 94 MG/DL (70-105); POTASSIUM 4.3 MMOL/L (3.6-5.0); SODIUM 134 MMOL/L (135-145); TOTAL PROTEIN 7.2 GM/DL (6.4-8.2)
[2017-12-31 14:36] LABS: BASOPHILS % (AUTO) 1 % (0-10); EOSINOPHILS % (AUTO) 0 % (0-10); HEMATOCRIT 33 % (40-54); HEMOGLOBIN 10.8 G/DL (13.3-17.7); LYMPHOCYTES # (AUTO) 0.9 X 10^3 (1.0-4.0); LYMPHOCYTES % (AUTO) 26 % (12-44); MEAN CORPUSCULAR HEMOGLOBIN 31 PG (25-34); MEAN CORPUSCULAR HGB CONC 33 G/DL (32-36); MEAN CORPUSCULAR VOLUME 95 FL (80-99); MEAN PLATELET VOLUME 8.2 FL (7.4-10.4); MONOCYTES # (AUTO) 0.3 X 10^3 (0.0-1.0); MONOCYTES % (AUTO) 9 % (0-12); NEUTROPHILS # (AUTO) 2.1 X 10^3 (1.8-7.8); NEUTROPHILS % (AUTO) 64 % (42-75); PLATELET COUNT 238 10^3/uL (130-400); RED BLOOD COUNT 3.45 10^6/uL (4.35-5.85); RED CELL DISTRIBUTION WIDTH 15.3 % (10.0-14.5); WHITE BLOOD COUNT 3.3 10^3/uL (4.3-11.0)
[2017-12-31 14:51] LABS: BUN/CREATININE RATIO 16; CALCIUM 9.3 MG/DL (8.5-10.1); CARBON DIOXIDE 26 MMOL/L (21-32); CHLORIDE 97 MMOL/L (98-107); CREATININE SERUM 0.81 MG/DL (0.60-1.30); GFR ESTIMATED > 60; GLUCOSE 91 MG/DL (70-105); POTASSIUM 4.8 MMOL/L (3.6-5.0); SODIUM 132 MMOL/L (135-145)
== END 2017-12-31 14:23 | disposition home or self-care (01) ==
LOC: ONC 13:12
PROVIDERS: ATTEND Internal Medicine Hematology & Oncology
DX: Z51.11 Encounter for antineoplastic chemotherapy (principal); C34.12 Malignant neoplasm of upper lobe, left bronchus or lung; C79.51 Secondary malignant neoplasm of bone; J43.9 Emphysema, unspecified; G40.909 Epilepsy, unspecified, not intractable, without status epilepticus; E78.5 Hyperlipidemia, unspecified; Z87.891 Personal history of nicotine dependence; Z79.899 Other long term (current) drug therapy
CPT/HCPCS: 36415; 36591; 80048; 80053; 83735; 85025; 96375; 96413; 96417

== ENCOUNTER → 2018-01-08 | Outpatient (CLI) | payer MEDICAID ==
[~2018-01-08] MED LIST changes: -CARBOPLATIN 160 MG in D5W 50 ML IV(CANCER CTR) 50 ML IV SCH; -FAMOTIDINE 20MG/2ML IV (CANCER CTR) IV SCH; -NS IV 1000 ML (CANCER CTR) IV SCH; -ONDANSETRON MDV (CANCER CENTER 16 MG, DEXAMETHASONE INJ (CANCER CTR) 4 MG in NS (IVPB) ... IV SCH; -PACLITAXEL 140 MG in NORMAL SALINE (CANCER CENTER) 250 ML IV SCH; -diphenhydrAMINE 25 MG TAB (BENADRYL) CANCER CENTER PO SCH
--- NOTE | 2018-01-08 17:43 | Diagnostic Imaging Report ---
INDICATION: Non-small cell lung cancer. TECHNIQUE: Two-view chest at 02:33 p.m. CORRELATION STUDY: 12/05/2017. FINDINGS: Right IJ Doswbk-t-Eytg catheter unchanged. Heart size and mediastinum are stable. Lung lo are somewhat hyperinflated but overall generally clear. Density over the right lung apex may be owing to superimposition of the Tqaxwx-i-Yoaq catheter. Advanced degenerative changes of bilateral shoulders as well as mild degenerative changes of thoracic spine. IMPRESSION: 1. Chronic-appearing changes about the lung parenchyma. Negative for acute cardiopulmonary abnormality. Dictated by: Dictated on workstation # [id number]
== END ==
LOC: RAD 14:06
PROVIDERS: ATTEND Nurse Practitioner Adult Health
DX: C34.12 Malignant neoplasm of upper lobe, left bronchus or lung (principal)
CPT/HCPCS: 71046

== ENCOUNTER → 2018-01-19 | Outpatient (CLI) | payer MEDICAID ==
--- NOTE | 2018-01-19 17:10 | Diagnostic Imaging Report ---
EXAM: CERVICAL SPINE 3 VIEWS OR LESS INDICATION: Neck pain. Trauma. COMPARISON: CT cervical spine without contrast 04/30/2017. FINDINGS: Stable alignment including mild to moderate anterolisthesis of C3 on C4, C4 on C5 and C5 on C6. There are advanced degenerative endplate changes, greatest at C5-C7. Vertebral body heights are stable. Moderate diffuse facet arthropathy. Normal prevertebral soft tissues. Atherosclerotic calcifications in the carotid arteries. Partially visualized right IJ tunneled port CVC. IMPRESSION: Moderate to advanced spondylotic changes, including anterolisthesis of several levels, is stable compared to the prior exam. No acute radiographic findings. Dictated by: Dictated on workstation # [id number]
== END ==
LOC: RAD 16:00
PROVIDERS: ATTEND Family Medicine
DX: S19.9XXA Unspecified injury of neck, initial encounter (principal); M47.812 Spondylosis without myelopathy or radiculopathy, cervical region; M43.12 Spondylolisthesis, cervical region
CPT/HCPCS: 72040

== ENCOUNTER 2018-01-26 12:36 | Inpatient (IN) | payer MEDICAID ==
[~2018-01-26] VITALS: Ht 182.9 cm; Wt 79.8 kg
[2018-01-26 13:46] LABS: BASOPHILS % (AUTO) 0 % (0-10); EOSINOPHILS % (AUTO) 0 % (0-10); HEMATOCRIT 34 % (40-54); HEMOGLOBIN 11.1 G/DL (13.3-17.7); LYMPHOCYTES # (AUTO) 0.6 X 10^3 (1.0-4.0); LYMPHOCYTES % (AUTO) 9 % (12-44); MEAN CORPUSCULAR HEMOGLOBIN 31 PG (25-34); MEAN CORPUSCULAR HGB CONC 33 G/DL (32-36); MEAN CORPUSCULAR VOLUME 93 FL (80-99); MONOCYTES # (AUTO) 0.4 X 10^3 (0.0-1.0); MONOCYTES % (AUTO) 6 % (0-12); NEUTROPHILS # (AUTO) 5.8 X 10^3 (1.8-7.8); NEUTROPHILS % (AUTO) 85 % (42-75); PLATELET COUNT 205 10^3/uL (130-400); RED BLOOD COUNT 3.62 10^6/uL (4.35-5.85); RED CELL DISTRIBUTION WIDTH 14.5 % (10.0-14.5); WHITE BLOOD COUNT 6.8 10^3/uL (4.3-11.0)
[2018-01-26] MEDS ORDERED: NS IV 1000 ML 1,000 ML IV SCH (13:55)
[2018-01-26 14:04] LABS: ALANINE AMINOTRANSFERASE 8 U/L (0-55); ALBUMIN 4.2 GM/DL (3.2-4.5); ALKALINE PHOSPHATASE 119 U/L (40-136); BILIRUBIN,TOTAL 0.5 MG/DL (0.1-1.0); BUN/CREATININE RATIO 17; CALCIUM 9.3 MG/DL (8.5-10.1); CARBON DIOXIDE 26 MMOL/L (21-32); CHLORIDE 94 MMOL/L (98-107); CREATININE SERUM 0.83 MG/DL (0.60-1.30); GFR ESTIMATED > 60; GLUCOSE 177 MG/DL (70-105); POTASSIUM 4.5 MMOL/L (3.6-5.0); SODIUM 129 MMOL/L (135-145); TOTAL PROTEIN 7.5 GM/DL (6.4-8.2)
[2018-01-26 14:08] LABS: PROTHROMBIN TIME PATIENT 13.7 SEC (12.2-14.7)
--- NOTE | 2018-01-26 14:49 | Diagnostic Imaging Report ---
INDICATION: Weakness with nausea and multiple falls. TIME OF EXAM: 3:01 PM Comparison is made with prior chest from 01/08/2018. FINDINGS: The heart size is stable. Right chest wall port has a tip overlying the SVC. There has been some development of infiltrate in the right lower lobe when compared with recent chest radiograph. Left lung is clear. The pulmonary vascularity is within normal limits. No effusion or pneumothorax is seen. IMPRESSION: Development of right lower lobe pneumonia when compared with examination from 01/08/2018. Dictated by: Dictated on workstation # [id number]
[2018-01-26] MEDS ORDERED: CEFEPIME INJECTION 2,000 MG in NS (IVPB) 50 ML IV ONE (15:30)
--- NOTE | 2018-01-26 15:37 | ED General ---
General Chief Complaint: General Problems/Pain Stated Complaint: WEAKNESS/NAUSEA MULTIPLE FALLS Nursing Triage Note: PT PRESENTS TO ER WITH COMPLAINT OF WEAKNESS, NAUSEA, AND MULTIPLE FALLS. PT ALSO STARTED RUNNING A FEVER TODAY. PT STATES LAST CHEMO WAS FRIDAY. Nursing Sepsis Screen: No Definite Risk Source of Information: Patient Exam Limitations: No Limitations History of Present Illness Date Seen by Provider: Jan 26, 2018 Time Seen by Provider: 13:48 Initial Comments This 62-year-old gentleman with lung cancer presents to the emergency room with complaints of feeling very weak and nauseated. He vomited Friday. His last chemotherapy was . He has a fever on assessment but was unaware of fever. He reports he has fallen twice in recent days. He reports no serious injury. There was no loss of consciousness. He states his last fall was while urinating and he suddenly became lightheaded and collapsed. His oncologist is Dr. Cardoza. His primary care providers Dr. Genao. Allergies and Home Medications Allergies Coded Allergies: aspirin (Unverified Allergy, Mild, DOES NOT WORK WELL W/ OTHER MEDS, ) ibuprofen (Unverified Allergy, Mild, 08/05/17) Home Medications Albuterol Sulfate 2.5 Mg/3 Ml Vial.neb, 2.5 MG NEB 5XD PRN for SHORTNESS OF BREATH, (Reported) Albuterol Sulfate 1 Puff Puff, 2 PUFF IH Q6H PRN for SHORTNESS OF BREATH, ( Reported) 1 PUFF = 90 MCG Amlodipine Besylate 5 Mg Tablet, 5 MG PO 0800, (Reported) Atorvastatin Calcium 10 Mg Tablet, 10 MG PO 0300, (Reported) Bromfenac Sodium 5 Ml Drops, 1 DROP OU TID, (Reported) Carbamazepine 200 Mg Tablet, 200 MG PO 0800,2300,0300, (Reported) Carbamazepine 200 Mg Tablet, 400 MG PO 1500, (Reported) TAKES 2 (200 MG) TABLETS Fluticasone/Salmeterol 1 Each Blst.w.dev, 1 PUFF INH BID, (Reported) Gabapentin 300 Mg Capsule, 300 MG PO 2300, (Reported) Gabapentin 600 Mg Tablet, 600 MG PO 0800,1500, (Reported) Hydrocodone/Acetaminophen 1 Each Tablet, 1 TAB PO Q6H PRN for PAIN-MODERATE, ( Reported) Lamotrigine 100 Mg Tablet, 100 MG PO 1500,2300, (Reported) Lamotrigine 25 Mg Tablet, 25 MG PO 1500,0300, (Reported) Lisinopril 20 Mg Tablet, 20 MG PO 0300, (Reported) Meloxicam 15 Mg Tablet, 15 MG PO 1500, (Reported) Pantoprazole Sodium 40 Mg Tablet.dr, 40 MG PO DAILY PRN for HEARTBURN, (Reported ) Phenytoin Sodium Extended 100 Mg Capsule, 200 MG PO 0800,1500, (Reported) TAKES 2 (100 MG) CAPSULES Phenytoin Sodium Extended 100 Mg Capsule, 100 MG PO 2300, (Reported) Ropinirole HCl 0.25 Mg Tablet, 0.25 MG PO 0800,1500,2300, (Reported) Tiotropium [place] 1 Inh Aerp, 1 CAP IH DAILY, (Reported) Patient Home Medication List Home Medication List Reviewed: Yes Review of Systems Review of Systems Constitutional: see HPI, fever, weakness EENTM: no symptoms reported Respiratory: see HPI, cough Cardiovascular: no symptoms reported Gastrointestinal: see HPI Genitourinary: no symptoms reported Musculoskeletal: no symptoms reported Skin: no symptoms reported Psychiatric/Neurological: See HPI Hematologic/Lymphatic: See HPI Immunological/Allergic: see HPI Past Golinkr-Ihqnse-Glpmsu Hx Patient Social History Alcohol Use: Denies Use Recreational Drug Use: Yes (not current, 15 years ago-ETOH and PO drugs) Smoking Status: Former Smoker Type Used: Cigarettes Former Smoker, Quit: Feb 12, 2017 2nd Hand Smoke Exposure: No Recent Foreign Travel: No Contact w/Someone Who Travel: No Recent Infectious Disease Expo: No Recent Hopitalizations: Yes Immunizations Up To Date Tetanus Booster (TDap): Unknown PED Vaccines UTD: Yes Seasonal Allergies Seasonal Allergies: Yes Past Medical History Surgeries: Yes Gallbladder Respiratory: Yes (METASTATIC LUNG CANCER DX 05/2017/COPD) Asthma, Pneumonia, Sleep Apnea, COPD Currently Using CPAP: No Currently Using BIPAP: Yes Cardiac: Yes High Cholesterol, Hypertension Neurological: Yes (post polio syndrome with left-sided deficits) Seizure Disorder Reproductive Disorders: No Sexually Transmitted Disease: No HIV/AIDS: No Genitourinary: No Gastrointestinal: No Musculoskeletal: Yes Arthritis Endocrine: No HEENT: No Loss of Vision: Denies Hearing Impairment: Denies Cancer: Yes Lung Did You Recieve Any Treatments: Yes What Type of Treatment Did You: Chemotherapy Psychosocial: No Integumentary: No Blood Disorders: No Adverse Reaction/Blood Tranf: No Family Medical History Hypercholesterolemia 19 FATHER Hypertension 19 FATHER No Pertinent Family Hx, Heart Disease Physical Exam-Suspected Sepsis Physical Exam Vital Signs Vital Signs - First Documented 01/26/18 13:21 Temp 100.5 Pulse 89 Resp 20 B/P (MAP) 111/75 (87) Pulse Ox 97 O2 Delivery Nasal Cannula O2 Flow Rate 4.00 Capillary Refill : Less Than 3 Seconds Blood Pressure Mean: 87 Height, Weight, BMI Height: 6'0" Weight: 176lbs. 0.0oz. 79.874485wa; 24.0 BMI Method:Stated General Appearance: No Apparent Distress, WD/WN, Thin HEENT: PERRL/EOMI, Normal ENT Inspection Neck: Normal Inspection Respiratory: No Accessory Muscle Use, No Respiratory Distress, Crackles ( Scattered bilaterally), Wheezing Cardiovascular: Regular Rate, Rhythm, No Edema, No Murmur Gastrointestinal: Normal Bowel Sounds, Non Tender, Soft Extremity: Normal Inspection, No Pedal Edema Neurologic/Psychiatric: Alert, Oriented x3, No Motor/Sensory Deficits, Normal Mood/Affect Skin: normal color, warm/dry Focused Exam Lactate Level 01/26/18 13:35: Lactic Acid Level 1.41 Lactic Acid Level Procedures/Interventions Date of ETT Placement: Mar 09, 2017 Time of ETT Placement: 1811 Suture Size: 5-0 Progress/Results/Core Measures Suspected Sepsis Recent Fever Within 48 Hours: No Infection Criteria Present: None New/Unexplained Altered Menta: No Sepsis Screen: No Definite Risk SIRS Temperature:100.5 Pulse: 89 Respiratory Rate: 20 Laboratory Tests 01/26/18 13:35: White Blood Count 6.8 01/27/18 05:20: White Blood Count 4.3 Blood Pressure 111 /75 Mean: 87 01/26/18 13:35: Lactic Acid Level 1.41 Laboratory Tests 01/26/18 13:35: Creatinine 0.83, INR Comment 1.0, Platelet Count 205, Total Bilirubin 0.5 01/27/18 05:20: Creatinine 0.68, Platelet Count 179, Total Bilirubin 0.2 Results/Orders Lab Results Laboratory Tests Test 01/26/18 13:35 01/27/18 05:20 Range/Units White Blood Count 6.8 4.3 4.3-11.0 10^3/uL Red Blood Count 3.62 L 2.92 L 4.35-5.85 10^6/uL Hemoglobin 11.1 L 9.1 L 13.3-17.7 G/DL Hematocrit 34 L 27 L 40-54 % Mean Corpuscular Volume 93 94 80-99 FL Mean Corpuscular Hemoglobin 31 31 25-34 PG Mean Corpuscular Hemoglobin Concent 33 33 32-36 G/DL Red Cell Distribution Width 14.5 14.5 10.0-14.5 % Platelet Count 205 179 130-400 10^3/uL Mean Platelet Volume 9.0 8.9 7.4-10.4 FL Neutrophils (%) (Auto) 85 H 72 42-75 % Lymphocytes (%) (Auto) 9 L 17 12-44 % Monocytes (%) (Auto) 6 10 0-12 % Eosinophils (%) (Auto) 0 0 0-10 % Basophils (%) (Auto) 0 1 0-10 % Neutrophils # (Auto) 5.8 3.1 1.8-7.8 X 10^3 Lymphocytes # (Auto) 0.6 L 0.8 L 1.0-4.0 X 10^3 Monocytes # (Auto) 0.4 0.4 0.0-1.0 X 10^3 Eosinophils # (Auto) 0.0 0.0 0.0-0.3 10^3/uL Basophils # (Auto) 0.0 0.0 0.0-0.1 10^3/uL Prothrombin Time 13.7 12.2-14.7 SEC INR Comment 1.0 0.8-1.4 Activated Partial Thromboplast Time 37 H 24-35 SEC Sodium Level 129 L 132 L 135-145 MMOL/L Potassium Level 4.5 4.0 3.6-5.0 MMOL/L Chloride Level 94 L 100 98-107 MMOL/L Carbon Dioxide Level 26 24 21-32 MMOL/L Anion Gap 9 8 5-14 MMOL/L Blood Urea Nitrogen 14 9 7-18 MG/DL Creatinine 0.83 0.68 0.60-1.30 MG/DL Estimat Glomerular Filtration Rate > 60 > 60 BUN/Creatinine Ratio 17 13 Glucose Level 177 H 122 H 70-105 MG/DL Lactic Acid Level 1.41 0.50-2.00 MMOL/L Calcium Level 9.3 8.5 8.5-10.1 MG/DL Corrected Calcium 9.1 8.7 8.5-10.1 MG/DL Total Bilirubin 0.5 0.2 0.1-1.0 MG/DL Aspartate Amino Transf (AST/SGOT) 8 11 5-34 U/L Alanine Aminotransferase (ALT/SGPT) 8 7 0-55 U/L Alkaline Phosphatase 119 97 40-136 U/L Total Protein 7.5 6.5 6.4-8.2 GM/DL Albumin 4.2 3.7 3.2-4.5 GM/DL Micro Results Microbiology 01/26/18 Blood Culture - Preliminary, Resulted No growth 01/26/18 Blood Culture - Preliminary, Resulted No growth 01/26/18 Influenza Types A,B Antigen (VY) - Final, Complete My Orders Orders - STEFAN HERNANDEZ MD Cbc With Automated Diff (01/26/18 13:23) Comprehensive Metabolic Panel (01/26/18 13:23) Saline Lock/Iv-Start (01/26/18 13:23) Blood Culture (01/26/18 13:55) Sputum Culture (01/26/18 13:55) Urinalysis (01/26/18 13:55) Urine Culture (01/26/18 13:55) Protime With Inr (01/26/18 13:55) Partial Thromboplastin Time (01/26/18 13:55) Vital Signs Adult Sepsis Patie Q15M (01/26/18 13:55) O2 (01/26/18 13:55) Remove Rings In Anticipation O (01/26/18 13:55) Lactic Acid Analyzer (01/26/18 13:55) Influenza A And B Antigens (01/26/18 13:55) Ns Iv 1000 Ml (Sodium Chloride 0.9%) (01/26/18 13:55) Chest Pa/Lat (2 View) (01/26/18 13:55) Cefepime Injection (Maxipime Injection) (01/26/18 15:30) Vital Signs/I&O 01/27/18 01/27/18 01/27/18 01/27/18 07:40 07:55 10:07 12:18 Temp 98.2 97.6 Pulse 70 66 Resp 18 18 B/P (MAP) 136/67 (90) 149/67 (94) Pulse Ox 98 96 99 O2 Delivery Nasal Cannula Nasal Cannula Nasal Cannula Nasal Cannula O2 Flow Rate 4.00 4.00 4.00 4.00 01/27/18 01/27/18 01/27/18 01/27/18 13:00 14:04 16:38 19:19 Temp 98.0 Pulse 67 97 Resp 18 B/P (MAP) 155/74 (101) Pulse Ox 98 98 97 O2 Delivery Nasal Cannula Nasal Cannula Nasal Cannula O2 Flow Rate 4.00 4.00 4.00 01/27/18 19:27 Pulse Ox 99 O2 Delivery Nasal Cannula O2 Flow Rate 4.00 Capillary Refill : Less Than 3 Seconds Blood Pressure Mean: 87 Progress Note : Progress Note Septic workup was pursued as patient is in an immunocompromise state and febrile. Right lower lobe pneumonia was found on chest x-ray. Influenza screen was negative. Patient was hydrated with IV fluids, treated with Zofran, and started on cefepime. Diagnostic Imaging Diagonstic Imaging: Xray Plain Films/CT/US/NM/MRI: chest Comments NAME: [facility] REC#: [id number] PT STATUS: ADM IN : 1955 PHYSICIAN: STEFAN HERNANDEZ MD ADMIT DATE: 01/26/18 Signed Date of Exam: 01/26/18 CHEST PA/LAT (2 VIEW) INDICATION: Weakness with nausea and multiple falls. TIME OF EXAM: 3:01 PM Comparison is made with prior chest from 01/08/2018. FINDINGS: The heart size is stable. Right chest wall port has a tip overlying the SVC. There has been some development of infiltrate in the right lower lobe when compared with recent chest radiograph. Left lung is clear. The pulmonary vascularity is within normal limits. No effusion or pneumothorax is seen. IMPRESSION: Development of right lower lobe pneumonia when compared with examination from 01/08/2018. Dictated by: Dictated on workstation # [id number] Dict: 01/26/18 1444 Trans: 01/26/18 1554 Interpreted by: ALAN PAYNE MD Electronically signed by: ALAN PAYNE MD 01/26/18 1554 Departure Communication (Admissions) Time/Spoke to Admitting Phy: 15:30 Dr. Genao Impression Primary Impression: Right lower lobe pneumonia Qualified Codes: J18.1 - Lobar pneumonia, unspecified organism Additional Impressions: Lung cancer Qualified Codes: C34.90 - Malignant neoplasm of unspecified part of unspecified bronchus or lung Nausea and vomiting Qualified Codes: R11.2 - Nausea with vomiting, unspecified Hyponatremia Disposition: ADMITTED INPATIENT Condition: Improved Admissions Decision to Admit Reason: Admit from ER (General) Decision to Admit/Date: Jan 27, 2018 Time/Decision to Admit Time: 15:25 Departure-Patient Inst. Referrals: AMANDEEP GENAO DO (PCP/Family) Primary Care Physician STEFAN HERNANDEZ MD Jan 26, 2018 15:36
[2018-01-26 17:00] VITALS: BP 136/70
[2018-01-26] MEDS ORDERED: HYDROcodone/APAP 5 MG/325 MG (LORTAB) TAB PO PRN (18:00)
[2018-01-26] MEDS ORDERED: FLU QUADRIvalent (5+ YOA) 2018-2019 (AFLURIA) 0.5 ML IM ONE (18:00)
[2018-01-26] MEDS ORDERED: NS IV 1000 ML 1,000 ML ONE (18:01)
[2018-01-26] MEDS ORDERED: ONDANSETRON 4 MG/2 ML (SDV) Z0FRAN IV PRN (18:15)
[2018-01-26] MEDS: NS IV 1000 ML 1,000 ML IV SCH (18:40)
--- NOTE | 2018-01-26 18:40 | History & Physicial ---
History of Present Illness History of Present Illness Reason for visit/HPI Patient feeling weak. Patient falling at home last few days. Patient running an elevated temperature. Last chemotherapy for lung cancer with last . Came out to the emergency room chest x-ray shows right lower lobe pneumonia. Patient had nausea and vomiting. Patient stopped smoking. Patient has history of COPD Date of Admission Jan 26, 2018 at 15:30 Time Seen by a Provider: 18:37 I consulted on this patient on 01/26/18 18:37 Attending Physician Micky Feng DO Admitting Physician Micky Feng DO Consult Allergies and Home Medications Allergies Coded Allergies: aspirin (Unverified Allergy, Mild, DOES NOT WORK WELL W/ OTHER MEDS, ) ibuprofen (Unverified Allergy, Mild, 08/05/17) Home Medications Albuterol Sulfate 2.5 Mg/3 Ml Vial.neb, 2.5 MG NEB 5XD PRN for SHORTNESS OF BREATH, (Reported) Albuterol Sulfate 1 Puff Puff, 2 PUFF IH Q6H PRN for SHORTNESS OF BREATH, ( Reported) 1 PUFF = 90 MCG Amlodipine Besylate 5 Mg Tablet, 5 MG PO 0800, (Reported) Atorvastatin Calcium 10 Mg Tablet, 10 MG PO 0300, (Reported) Carbamazepine 200 Mg Tablet, 200 MG PO 0800,2300,0300, (Reported) Carbamazepine 200 Mg Tablet, 400 MG PO 1500, (Reported) TAKES 2 (200 MG) TABLETS Fluticasone/Salmeterol 1 Each Blst.w.dev, 1 PUFF INH BID, (Reported) Gabapentin 300 Mg Capsule, 300 MG PO 2300, (Reported) Gabapentin 600 Mg Tablet, 600 MG PO 0800,1500, (Reported) Lamotrigine 100 Mg Tablet, 100 MG PO 1500,2300, (Reported) Lamotrigine 25 Mg Tablet, 25 MG PO 1500,0300, (Reported) Lisinopril 20 Mg Tablet, 20 MG PO 0300, (Reported) Meloxicam 15 Mg Tablet, 15 MG PO 1500, (Reported) Pantoprazole Sodium 40 Mg Tablet.dr, 40 MG PO DAILY, (Reported) Phenytoin Sodium Extended 100 Mg Capsule, 200 MG PO 0800,1500, (Reported) TAKES 2 (100 MG) CAPSULES Phenytoin Sodium Extended 100 Mg Capsule, 100 MG PO 2300, (Reported) Prednisone 10 Mg Tab.ds.pk, 10 MG PO DAILY Take 6 tabs(60mg)daily,decrease by 1 tab(10MG)daily. Prescribed by: JAMIR ELLISON on 12/06/17 1144 Ropinirole HCl 0.25 Mg Tablet, 0.25 MG PO 0800,1500,2300, (Reported) Tiotropium [place] 1 Inh Aerp, 1 CAP IH DAILY, (Reported) Patient Home Medication List Home Medication List Reviewed: Yes Past Xxqrgnj-Jxvkbk-Xvzndu Hx Patient Social History Marrital Status: domestic partnership Employed/Student: unemployed Alcohol Use: Denies Use Recreational Drug Use: Yes (not current, 15 years ago-ETOH and PO drugs) Smoking Status: Former Smoker Former Smoker, Quit: Feb 12, 2017 Type Used: Cigarettes 2nd Hand Smoke Exposure: No Physical Abuse Screen: No Sexual Abuse: No Recent Foreign Travel: No Contact w/other who traveled: No Recent Hopitalizations: Yes Recent Infectious Disease Expo: No Immunizations Up To Date Tetanus Booster (TDap): Unknown Pediatric: Yes Seasonal Allergies Seasonal Allergies: Yes Surgeries Yes Gallbladder Respiratory Yes (METASTATIC LUNG CANCER DX 05/2017/COPD) COPD, Emphysema, Pneumonia Currently Using CPAP: No Currently Using BIPAP: Yes Cardiovascular Yes High Cholesterol, Hypertension 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) Seizure Disorder Reproductive System Hx Reproductive Disorders: No Sexually Transmitted Disease: No HIV/AIDS: No Genitourinary No Gastrointestinal No Musculoskeletal Yes Arthritis Endocrine History of Endocrine Disorders: No HEENT History of HEENT Disorders: No Loss of Vision: Denies Hearing Impairment: Denies Cancer Yes Lung Did You Recieve Any Treatments: Yes Type of Treatment: Chemotherapy Psychosocial History of Psychiatric Problem: No Integumentary History of Skin or Integumenta: No Blood Transfusions History of Blood Disorders: No Adverse Reaction to a Blood Tr: No Family Medical History Significant Family History: No Pertinent Family Hx, Heart Disease Family Hx: Hypercholesterolemia 19 FATHER Hypertension 19 FATHER Review of Systems Constitutional: malaise, weakness EENTM: no symptoms reported Respiratory: cough, short of breath, wheezing Cardiovascular: no symptoms reported Gastrointestinal: no symptoms reported Genitourinary: no symptoms reported Physical Exam Vital Signs Vital Signs - First Documented 01/26/18 01/26/18 13:21 17:17 Temp 100.5 Pulse 89 Resp 20 B/P (MAP) 111/75 (87) Pulse Ox 96 O2 Delivery Room Air O2 Flow Rate 4.00 Capillary Refill : Less Than 3 Seconds Height, Weight, BMI Height: 6'0.00" Weight: 176lbs. 0.0oz. 79.552399cx; 23.9 BMI Method:Stated General Appearance: No Apparent Distress, Thin Eyes: Bilateral Eye Normal Inspection HEENT: Normal ENT Inspection Neck: Full Range of Motion, Normal Inspection Respiratory: No Accessory Muscle Use, No Respiratory Distress, Decreased Breath Sounds Cardiovascular: Regular Rate, Rhythm, No Murmur Gastrointestinal: Non Tender, Soft Assessment/Plan Assessment and Plan Echo lobe pneumonia. Fever. Lung cancer. Nausea and vomiting. History of tobaccoism stop last January Admission Diagnosis Admission Status: Inpatient Order (span 2 midnights) Reason for Inpatient Admission: Right lower lung pneumonia. Lung cancer. Nausea and vomiting. Short of breath. Falling Weakness Clinical Quality Measures DVT/VTE Risk/Contraindication: Risk Factor Score Per Nursin RFS Level Per Nursing on Admit: 4+=Very High MICKY FENG DO Jan 26, 2018 18:40
[2018-01-26] MEDS ORDERED: ENOXAPARIN 40 MG/0.4 ML (LOVENOX) SYR SC SCH (18:45)
[2018-01-26] MEDS: ENOXAPARIN 40 MG/0.4 ML (LOVENOX) SYR SC SCH (19:18)
[2018-01-26] MEDS: RT-ADVAIR HFA 115/21 MCG PER PUFF IH SCH (19:43)
--- OUTSIDE RECORDS SUMMARY | 2018-01-26 19:58 | XMS REPORT | Clinical Summary ---
Author Author [facility] Organization [facility] Address Unknown Phone Unavailable Care Team Providers Care Set Up Inspector Name Role Phone Efra Valentino MD Unavailable Source Comments Some departments are not documenting in the electronic medical record. If you do not see the information that you expected, contact Release of Information in the Health Information Management department at [phone] for further assistance in locating additional records.[facility] Allergies Active Allergy Reactions [...] Active Problems Problem Noted Date Seizures ([facility]) 10/22/2013 Hemiparesis ([facility]) 10/22/2013 Asthma 10/22/2013 COPD (chronic obstructive pulmonary disease) ([facility]) 10/22/2013 Hyperlipidemia 10/22/2013 Weight loss [...] 07/17/2003 VACCINE (1 of 2) INFLUENZA VACCINE 10/29/2017 Results Not on filefrom Last 3 Months
[2018-01-26 20:00] VITALS: BP 119/63
[2018-01-26 20:38] VITALS: BP 134/73
[2018-01-26] MEDS ORDERED: NON-FORMULARY MEDICATION 1 EA EA (Fluticasone/Salmeterol (Advair 250-50 Diskus) 1 PUFF) INH SCH (21:00)
[2018-01-26] MEDS ORDERED: RT-ALBUTEROL/IPRATROPIUM 3 ML (DUONEB) VIAL INH PRN (21:00)
[2018-01-26] MEDS: ARTIFICAL TEARS 0.4 ML UNIT DOSE (REFRESH PLUS) OD SCH (21:54)
[2018-01-26] MEDS: rOPINIRole 0.25 MG (REQUIP) TAB PO SCH (22:55)
[2018-01-26] MEDS: carBAMazepine 200 MG (TEGretol) TAB PO SCH (22:55)
[2018-01-26] MEDS: GABAPENTIN 300 MG (NEURONTIN) CAP PO SCH (22:56)
[2018-01-26] MEDS: PHENYTOIN 100 MG (DILANTIN) CAP PO SCH (22:56)
[2018-01-26] MEDS ORDERED: NON-FORMULARY MEDICATION 1 EA EA (Lamotrigine 100 MG) PO SCH (23:00)
[2018-01-26] MEDS ORDERED: CARBAMAZEPINE 200 MG PO SCH (23:00)
[2018-01-26] MEDS ORDERED: NON-FORMULARY MEDICATION 1 EA EA (Phenytoin Sodium Extended 100 MG) PO SCH (23:00)
[2018-01-27 00:28] VITALS: BP 109/56
[2018-01-27] MEDS: NS IV 1000 ML 1,000 ML IV SCH ×2 (00:51→08:15)
[2018-01-27] MEDS ORDERED: LAMOTRIGINE 25 MG PO SCH (03:00)
[2018-01-27] MEDS: lisINopril 20 MG (PRINIVIL) TABLET PO SCH (03:33)
[2018-01-27] MEDS: carBAMazepine 200 MG (TEGretol) TAB PO SCH ×4 (03:33→23:38)
[2018-01-27] MEDS: lamoTRIgine 25 MG (LaMICtal) TAB PO SCH ×2 (03:36→15:03)
[2018-01-27] MEDS: ATORVASTATIN 10 MG (LIPITOR) TABLET PO SCH (03:36)
[2018-01-27 04:05] VITALS: BP 116/61
[2018-01-27] MEDS: PANTOPRAZOLE 40 MG (PROTONIX) TAB PO SCH (05:19)
[2018-01-27] MEDS: CEFEPIME 2 GM/NS 50 ML IVPB IV SCH ×4 (05:19→17:17)
[2018-01-27 05:34] LABS: BASOPHILS % (AUTO) 1 % (0-10); EOSINOPHILS % (AUTO) 0 % (0-10); HEMATOCRIT 27 % (40-54); HEMOGLOBIN 9.1 G/DL (13.3-17.7); LYMPHOCYTES # (AUTO) 0.8 X 10^3 (1.0-4.0); LYMPHOCYTES % (AUTO) 17 % (12-44); MEAN CORPUSCULAR HEMOGLOBIN 31 PG (25-34); MEAN CORPUSCULAR HGB CONC 33 G/DL (32-36); MEAN CORPUSCULAR VOLUME 94 FL (80-99); MEAN PLATELET VOLUME 8.9 FL (7.4-10.4); MONOCYTES # (AUTO) 0.4 X 10^3 (0.0-1.0); MONOCYTES % (AUTO) 10 % (0-12); NEUTROPHILS # (AUTO) 3.1 X 10^3 (1.8-7.8); NEUTROPHILS % (AUTO) 72 % (42-75); PLATELET COUNT 179 10^3/uL (130-400); RED BLOOD COUNT 2.92 10^6/uL (4.35-5.85); RED CELL DISTRIBUTION WIDTH 14.5 % (10.0-14.5); WHITE BLOOD COUNT 4.3 10^3/uL (4.3-11.0)
[2018-01-27] MEDS: RT-ADVAIR HFA 115/21 MCG PER PUFF IH SCH ×2 (05:34→19:19)
[2018-01-27] MEDS: RT-ALBUTEROL/IPRATROPIUM 3 ML (DUONEB) VIAL INH SCH ×4 (05:34→19:19)
[2018-01-27] MEDS: UMECLIDINIUM BROMIDE (INCRUSE ELLIPTA) 7'S IH SCH (05:39)
[2018-01-27 05:57] LABS: ALANINE AMINOTRANSFERASE 7 U/L (0-55); ALBUMIN 3.7 GM/DL (3.2-4.5); ALKALINE PHOSPHATASE 97 U/L (40-136); BILIRUBIN,TOTAL 0.2 MG/DL (0.1-1.0); BUN/CREATININE RATIO 13; CALCIUM 8.5 MG/DL (8.5-10.1); CARBON DIOXIDE 24 MMOL/L (21-32); CHLORIDE 100 MMOL/L (98-107); CREATININE SERUM 0.68 MG/DL (0.60-1.30); GFR ESTIMATED > 60; GLUCOSE 122 MG/DL (70-105); SODIUM 132 MMOL/L (135-145); TOTAL PROTEIN 6.5 GM/DL (6.4-8.2)
--- NOTE | 2018-01-27 07:35 | Progress Note (SOAP) ---
Subjective Time Seen by a Provider: 07:28 Subjective/Events-last exam Patient feeling better today. Patient able to walk today. Pneumonia right lower lobe. White blood cell count within normal limits. Chest x-ray not done today yet Focused Exam Lactate Level 01/26/18 13:35: Lactic Acid Level 1.41 Objective Exam Vital Signs Date Time Temp Pulse Resp B/P (MAP) Pulse Ox O2 Delivery O2 Flow Rate FiO2 01/27/18 05:34 95 Nasal Cannula 4.00 01/27/18 04:05 98.4 73 19 116/61 (79) 97 Nasal Cannula 4.00 01/27/18 01:00 58 01/27/18 00:28 98.0 72 18 109/56 (73) 96 Nasal Cannula 4.00 01/26/18 20:38 67 94 01/26/18 20:00 98.0 67 18 119/63 (81) 96 Nasal Cannula 4.00 01/26/18 20:00 Nasal Cannula 4.00 01/26/18 19:43 94 Nasal Cannula 4.00 01/26/18 19:00 70 01/26/18 17:17 Nasal Cannula 4.00 01/26/18 17:00 98.3 69 18 136/70 (92) 97 Nasal Cannula 4.00 01/26/18 16:45 66 29 134/73 (93) 97 Nasal Cannula 4.00 01/26/18 13:21 100.5 89 20 111/75 (87) 96 Room Air 01/26/18 13:21 97 Nasal Cannula 4.00 I & O 01/27/18 07:00 Intake Total 2690 ml Output Total 450 ml Balance 2240 ml Capillary Refill : Less Than 3 Seconds General Appearance: No Apparent Distress, WD/WN, Thin HEENT: Normal ENT Inspection Neck: Full Range of Motion, Normal Inspection Respiratory: No Accessory Muscle Use, No Respiratory Distress, Decreased Breath Sounds Cardiovascular: Regular Rate, Rhythm Gastrointestinal: non tender, soft Results Lab Laboratory Tests 01/26/18 13:35 01/27/18 05:20 Laboratory Tests 01/26/18 13:35: White Blood Count 6.8, Red Blood Count 3.62L, Hemoglobin 11.1L, Hematocrit 34L, Mean Corpuscular Volume 93, Mean Corpuscular Hemoglobin 31, Mean Corpuscular Hemoglobin Concent 33, Red Cell Distribution Width 14.5, Platelet Count 205, Mean Platelet Volume 9.0, Neutrophils (%) (Auto) 85H, Lymphocytes (%) (Auto) 9L , Monocytes (%) (Auto) 6, Eosinophils (%) (Auto) 0, Basophils (%) (Auto) 0, Neutrophils # (Auto) 5.8, Lymphocytes # (Auto) 0.6L, Monocytes # (Auto) 0.4, Eosinophils # (Auto) 0.0, Basophils # (Auto) 0.0, Prothrombin Time 13.7, INR Comment 1.0, Activated Partial Thromboplast Time 37H, Sodium Level 129L, Potassium Level 4.5, Chloride Level 94L, Carbon Dioxide Level 26, Anion Gap 9, Blood Urea Nitrogen 14, Creatinine 0.83, Estimat Glomerular Filtration Rate > 60 , BUN/Creatinine Ratio 17, Glucose Level 177H, Lactic Acid Level 1.41, Calcium Level 9.3, Corrected Calcium 9.1, Total Bilirubin 0.5, Aspartate Amino Transf ( AST/SGOT) 8, Alanine Aminotransferase (ALT/SGPT) 8, Alkaline Phosphatase 119, Total Protein 7.5, Albumin 4.2 01/27/18 05:20: White Blood Count 4.3, Red Blood Count 2.92L, Hemoglobin 9.1L, Hematocrit 27L, Mean Corpuscular Volume 94, Mean Corpuscular Hemoglobin 31, Mean Corpuscular Hemoglobin Concent 33, Red Cell Distribution Width 14.5, Platelet Count 179, Mean Platelet Volume 8.9, Neutrophils (%) (Auto) 72, Lymphocytes (%) (Auto) 17, Monocytes (%) (Auto) 10, Eosinophils (%) (Auto) 0, Basophils (%) (Auto) 1, Neutrophils # (Auto) 3.1, Lymphocytes # (Auto) 0.8L, Monocytes # (Auto) 0.4, Eosinophils # (Auto) 0.0, Basophils # (Auto) 0.0, Sodium Level 132L, Potassium Level 4.0, Chloride Level 100, Carbon Dioxide Level 24, Anion Gap 8, Blood Urea Nitrogen 9, Creatinine 0.68, Estimat Glomerular Filtration Rate > 60, BUN/ Creatinine Ratio 13, Glucose Level 122H, Calcium Level 8.5, Corrected Calcium 8.7, Total Bilirubin 0.2, Aspartate Amino Transf (AST/SGOT) 11, Alanine Aminotransferase (ALT/SGPT) 7, Alkaline Phosphatase 97, Total Protein 6.5, Albumin 3.7 Microbiology 01/26/18 Influenza Types A,B Antigen (VY) - Final, Complete Assessment/Plan Assessment/Plan Assess & Plan/Chief Complaint Right lower lung pneumonia. Short of breath. Lung cancer. Chemotherapy last . History of COPD. History of tobaccoism Clinical Quality Measures Admission Status Admission Dx Echo lobe pneumonia. Fever. Lung cancer. Nausea and vomiting. History of tobaccoism stop last January DVT/VTE Risk/Contraindication: Risk Factor Score Per Nursin RFS Level Per Nursing on Admit: 4+=Very High AMANDEEP GENAO DO Jan 27, 2018 07:34
[2018-01-27 07:40] VITALS: BP 136/67
[2018-01-27] MEDS ORDERED: NON-FORMULARY MEDICATION 1 EA EA (Amlodipine Besylate 5 MG) PO SCH (08:00)
[2018-01-27] MEDS ORDERED: NON-FORMULARY MEDICATION 1 EA EA (Phenytoin Sodium Extended 200 MG) PO SCH (08:00)
[2018-01-27] MEDS: rOPINIRole 0.25 MG (REQUIP) TAB PO SCH ×3 (08:15→23:37)
[2018-01-27] MEDS: GABAPENTIN 600 MG (NEURONTIN) TAB PO SCH ×2 (08:15→15:03)
[2018-01-27] MEDS: PHENYTOIN 100 MG (DILANTIN) CAP PO SCH ×3 (08:16→23:37)
[2018-01-27] MEDS: ARTIFICAL TEARS 0.4 ML UNIT DOSE (REFRESH PLUS) OD SCH ×3 (08:16→19:54)
[2018-01-27] MEDS: amLODIPine 5 MG (NORVASC) TAB PO SCH (08:16)
--- NOTE | 2018-01-27 08:53 | Diagnostic Imaging Report ---
INDICATION: Pneumonia. Comparison is made with prior examination from 01/26/2018. FINDINGS: The heart size is normal. There is bibasilar atelectasis and/or pneumonitis. There is no pneumothorax. The mediastinum is unremarkable. Ekgkof-G-[id number] catheter overlies the right hemithorax. There is no pleural effusion. IMPRESSION: Bibasilar atelectasis and/or pneumonitis, right greater than left. Dictated by: Dictated on workstation # [id number]
[2018-01-27] MEDS ORDERED: TIOTROPIUM BROMIDE (SPIRIVA) 5'S INHALER IH SCH (09:00)
[2018-01-27] MEDS ORDERED: HYDR-3812 PO (09:16)
[2018-01-27] MEDS ORDERED: BROM5DRO3 OU (09:16)
[2018-01-27 12:18] VITALS: BP 149/67
[2018-01-27] MEDS ORDERED: NON-FORMULARY MEDICATION 1 EA EA (Meloxicam 15 MG) PO SCH (15:00)
[2018-01-27] MEDS ORDERED: CARBAMAZEPINE 400 MG PO SCH (15:00)
[2018-01-27] MEDS: MELOXICAM 7.5 MG (MOBIC) TABLET PO SCH (15:03)
[2018-01-27 16:38] VITALS: BP 155/74
[2018-01-27] MEDS: ENOXAPARIN 40 MG/0.4 ML (LOVENOX) SYR SC SCH (18:26)
[2018-01-27 20:55] VITALS: BP 134/61
[2018-01-27] MEDS: GABAPENTIN 300 MG (NEURONTIN) CAP PO SCH (23:38)
[2018-01-28] VITALS (11 sets, daily range): BP systolic 126–183; BP diastolic 60–96
[2018-01-28] MEDS: lamoTRIgine 25 MG (LaMICtal) TAB PO SCH ×2 (03:22→15:04)
[2018-01-28] MEDS: carBAMazepine 200 MG (TEGretol) TAB PO SCH ×4 (03:22→23:35)
[2018-01-28] MEDS: NS IV 1000 ML 1,000 ML IV SCH (03:22)
[2018-01-28] MEDS: ATORVASTATIN 10 MG (LIPITOR) TABLET PO SCH (03:22)
[2018-01-28] MEDS: lisINopril 20 MG (PRINIVIL) TABLET PO SCH (03:22)
[2018-01-28] MEDS: PANTOPRAZOLE 40 MG (PROTONIX) TAB PO SCH (05:46)
[2018-01-28] MEDS: CEFEPIME 2 GM/NS 50 ML IVPB IV SCH ×4 (05:46→16:55)
[2018-01-28 05:56] LABS: BASOPHILS % (AUTO) 1 % (0-10); EOSINOPHILS % (AUTO) 0 % (0-10); HEMATOCRIT 27 % (40-54); HEMOGLOBIN 8.8 G/DL (13.3-17.7); LYMPHOCYTES # (AUTO) 0.6 X 10^3 (1.0-4.0); LYMPHOCYTES % (AUTO) 17 % (12-44); MEAN CORPUSCULAR HEMOGLOBIN 31 PG (25-34); MEAN CORPUSCULAR HGB CONC 33 G/DL (32-36); MEAN CORPUSCULAR VOLUME 94 FL (80-99); MEAN PLATELET VOLUME 8.8 FL (7.4-10.4); MONOCYTES # (AUTO) 0.4 X 10^3 (0.0-1.0); MONOCYTES % (AUTO) 13 % (0-12); NEUTROPHILS # (AUTO) 2.4 X 10^3 (1.8-7.8); NEUTROPHILS % (AUTO) 69 % (42-75); PLATELET COUNT 168 10^3/uL (130-400); RED BLOOD COUNT 2.86 10^6/uL (4.35-5.85); RED CELL DISTRIBUTION WIDTH 14.2 % (10.0-14.5); WHITE BLOOD COUNT 3.4 10^3/uL (4.3-11.0)
[2018-01-28 06:17] LABS: BUN/CREATININE RATIO 9; CALCIUM 8.8 MG/DL (8.5-10.1); CARBON DIOXIDE 28 MMOL/L (21-32); CHLORIDE 100 MMOL/L (98-107); CREATININE SERUM 0.68 MG/DL (0.60-1.30); GFR ESTIMATED > 60; GLUCOSE 165 MG/DL (70-105); SODIUM 135 MMOL/L (135-145)
[2018-01-28 06:48] LABS: LYMPHOCYTES % (MANUAL) 16 %; MONOCYTES % (MANUAL) 11 %; NEUTROPHILS % (MANUAL) 73 %
[2018-01-28] MEDS: RT-ALBUTEROL/IPRATROPIUM 3 ML (DUONEB) VIAL INH SCH ×4 (07:05→18:22)
[2018-01-28] MEDS: RT-ADVAIR HFA 115/21 MCG PER PUFF IH SCH ×2 (07:05→18:22)
--- NOTE | 2018-01-28 07:37 | Progress Note (SOAP) ---
Subjective Time Seen by a Provider: 07:34 Subjective/Events-last exam Patient had some shortness of breath yesterday with exertion. Patient feels he needs 1 more day. Hyponatremia resolved. Afebrile. White blood cell count 3.4 minimally low. Plan to discharge tomorrow Focused Exam Lactate Level 01/26/18 13:35: Lactic Acid Level 1.41 Objective Exam Vital Signs Date Time Temp Pulse Resp B/P (MAP) Pulse Ox O2 Delivery O2 Flow Rate FiO2 01/28/18 07:09 98 Nasal Cannula 4.00 01/28/18 07:06 98 Nasal Cannula 4.00 01/28/18 04:11 97.6 78 19 126/60 (82) 98 Nasal Cannula 4.00 01/28/18 01:00 70 01/28/18 00:57 97.8 96 18 140/67 (91) 95 Nasal Cannula 4.00 01/27/18 20:55 96.2 70 20 134/61 (85) 97 Nasal Cannula 4.00 01/27/18 20:00 Nasal Cannula 4.00 01/27/18 19:27 99 Nasal Cannula 4.00 01/27/18 19:19 97 Nasal Cannula 4.00 01/27/18 19:00 70 01/27/18 16:38 98.0 97 18 155/74 (101) 98 Nasal Cannula 4.00 01/27/18 14:04 98 Nasal Cannula 4.00 01/27/18 13:00 67 01/27/18 12:18 97.6 66 18 149/67 (94) 99 Nasal Cannula 4.00 01/27/18 10:07 96 Nasal Cannula 4.00 01/27/18 07:55 Nasal Cannula 4.00 01/27/18 07:40 98.2 70 18 136/67 (90) 98 Nasal Cannula 4.00 I & O 01/28/18 07:00 Intake Total 1850 ml Balance 1850 ml Capillary Refill : Less Than 3 Seconds General Appearance: No Apparent Distress, WD/WN HEENT: Normal ENT Inspection Neck: Full Range of Motion, Normal Inspection Respiratory: No Accessory Muscle Use, No Respiratory Distress, Decreased Breath Sounds, Other (Ambrose congestion) Cardiovascular: Regular Rate, Rhythm, No Murmur Gastrointestinal: non tender, soft Results Lab Laboratory Tests 01/28/18 05:40 Laboratory Tests 01/28/18 05:40: White Blood Count 3.4L, Red Blood Count 2.86L, Hemoglobin 8.8L, Hematocrit 27L, Mean Corpuscular Volume 94, Mean Corpuscular Hemoglobin 31, Mean Corpuscular Hemoglobin Concent 33, Red Cell Distribution Width 14.2, Platelet Count 168, Mean Platelet Volume 8.8, Neutrophils (%) (Auto) 69, Lymphocytes (%) (Auto) 17, Monocytes (%) (Auto) 13H, Eosinophils (%) (Auto) 0, Basophils (%) (Auto) 1, Neutrophils # (Auto) 2.4, Lymphocytes # (Auto) 0.6L, Monocytes # (Auto) 0.4, Eosinophils # (Auto) 0.0, Basophils # (Auto) 0.0, Neutrophils % (Manual) 73, Lymphocytes % (Manual) 16, Monocytes % (Manual) 11, Sodium Level 135, Potassium Level 4.0, Chloride Level 100, Carbon Dioxide Level 28, Anion Gap 7, Blood Urea Nitrogen 6L, Creatinine 0.68, Estimat Glomerular Filtration Rate > 60, BUN/ Creatinine Ratio 9, Glucose Level 165H, Calcium Level 8.8 Microbiology 01/26/18 Blood Culture - Preliminary, Resulted No growth 01/26/18 Influenza Types A,B Antigen (VY) - Final, Complete Assessment/Plan Assessment/Plan Assess & Plan/Chief Complaint Right lower lung pneumonia. Short of breath. Lung cancer. Chemotherapy last . History of COPD. History of tobaccoism. . 01/28/18. Right lower lobe pneumonia. Shortness of breath. Lung cancer. Chemotherapy last . History of tobaccoism. History of COPD. Patient will be discharged tomorrow. Patient has some shortness of breath with exertion yesterday area Chest x-ray not done yet Clinical Quality Measures Admission Status Admission Dx Echo lobe pneumonia. Fever. Lung cancer. Nausea and vomiting. History of tobaccoism stop last January DVT/VTE Risk/Contraindication: Risk Factor Score Per Nursin RFS Level Per Nursing on Admit: 4+=Very High AMANDEEP GENAO DO Jan 28, 2018 07:37
[2018-01-28] MEDS: PHENYTOIN 100 MG (DILANTIN) CAP PO SCH ×3 (08:22→23:35)
[2018-01-28] MEDS: rOPINIRole 0.25 MG (REQUIP) TAB PO SCH ×3 (08:22→23:35)
[2018-01-28] MEDS: ARTIFICAL TEARS 0.4 ML UNIT DOSE (REFRESH PLUS) OD SCH ×3 (08:22→23:36)
[2018-01-28] MEDS: GABAPENTIN 600 MG (NEURONTIN) TAB PO SCH ×2 (08:22→15:04)
[2018-01-28] MEDS: amLODIPine 5 MG (NORVASC) TAB PO SCH (08:22)
--- NOTE | 2018-01-28 09:06 | Diagnostic Imaging Report ---
INDICATION: Right lower lobe pneumonia. PA and lateral views of the chest are obtained with comparison made to study of 01/27/2018. Overall heart size and pulmonary vascularity are within normal limits. There is air trapping, bilaterally. There has been slight worsening of perihilar and basilar atelectasis and/or pneumonitis. There is probable bulla noted in the left lung base. No definite consolidations identified. There are advanced degenerative findings in the shoulder girdles. Right anterior chest wall port is in place with catheter tip projecting over lower superior vena cava. IMPRESSION: Mild perihilar and basilar atelectasis and/or pneumonitis similar to but slightly worsened compared to previous study. Dictated by: Dictated on workstation # [id number]
[2018-01-28] MEDS: UMECLIDINIUM BROMIDE (INCRUSE ELLIPTA) 7'S IH SCH (10:58)
[2018-01-28] MEDS: MELOXICAM 7.5 MG (MOBIC) TABLET PO SCH (15:05)
[2018-01-28] MEDS: ENOXAPARIN 40 MG/0.4 ML (LOVENOX) SYR SC SCH (18:11)
[2018-01-28] MEDS ORDERED: lisINopril 20 MG (PRINIVIL) TABLET PO NR (20:15)
[2018-01-28] MEDS ORDERED: methylPREDNISolone 40 MG/ML (Solu-MEDROL) VIAL IV NR (20:15)
[2018-01-28] MEDS ORDERED: methylPREDNISolone 40 MG/ML (Solu-MEDROL) VIAL ONE (20:22)
[2018-01-28] MEDS: ACETAMINOPHEN 500 MG TAB (TYLENOL) PO PRN (20:51)
--- NOTE | 2018-01-28 20:58 | Diagnostic Imaging Report ---
INDICATION: Increasing shortness of breath over the past few hours. Comparison with 9 a.m. exam. FINDINGS: Obstructive interstitial lung disease again noted. Perihilar atelectasis and infiltrate on the right is again noted showing some increased density since previous exam. There is mild increased linear atelectasis in the left lung base as well. Heart has increased slightly in size. Pulmonary vasculature slightly prominent. No pneumothorax seen. Probable small pleural effusion developing. IMPRESSION: Increasing cardiac size with mild pulmonary venous congestion. Increasing bibasilar infiltrates with small pleural effusions now. Dictated by: Dictated on workstation # [id number]
[2018-01-28 21:03] LABS: ABG OXYGEN SATURATION 90 % (94-100); ABG PCO2 53 MMHG (35-45); ABG PH 7.39 (7.37-7.43); ABG PO2 70 MMHG (79-93); ABG TCO2 31.7 MMOL/L (21.0-31.0)
[2018-01-28 21:05] LABS: ALLENS TEST YES-POS; INSPIRED O2 6L; PATIENT TEMP 103.8; VENTILATOR NO
[2018-01-28] MEDS ORDERED: VANCOMYCIN INJECTION 0.1 MG in NS (IVPB) 250 ML IV SCH (21:15)
[2018-01-28 21:44] LABS: BASOPHILS % (AUTO) 0 % (0-10); EOSINOPHILS % (AUTO) 0 % (0-10); HEMATOCRIT 30 % (40-54); HEMOGLOBIN 9.9 G/DL (13.3-17.7); LYMPHOCYTES # (AUTO) 0.4 X 10^3 (1.0-4.0); LYMPHOCYTES % (AUTO) 7 % (12-44); MEAN CORPUSCULAR HEMOGLOBIN 31 PG (25-34); MEAN CORPUSCULAR HGB CONC 33 G/DL (32-36); MEAN CORPUSCULAR VOLUME 94 FL (80-99); MEAN PLATELET VOLUME 8.9 FL (7.4-10.4); MONOCYTES # (AUTO) 0.5 X 10^3 (0.0-1.0); MONOCYTES % (AUTO) 8 % (0-12); NEUTROPHILS # (AUTO) 4.9 X 10^3 (1.8-7.8); NEUTROPHILS % (AUTO) 84 % (42-75); PLATELET COUNT 200 10^3/uL (130-400); RED BLOOD COUNT 3.24 10^6/uL (4.35-5.85); RED CELL DISTRIBUTION WIDTH 14.2 % (10.0-14.5); WHITE BLOOD COUNT 5.8 10^3/uL (4.3-11.0)
[2018-01-28 21:52] LABS: BUN/CREATININE RATIO 10; CALCIUM 9.5 MG/DL (8.5-10.1); CARBON DIOXIDE 27 MMOL/L (21-32); CHLORIDE 95 MMOL/L (98-107); GFR ESTIMATED > 60; GLUCOSE 120 MG/DL (70-105); POTASSIUM 4.2 MMOL/L (3.6-5.0); SODIUM 134 MMOL/L (135-145)
[2018-01-28 22:05] LABS: ANISOCYTOSIS SLIGHT; BAND NEUTROPHILS 0 %; BASOPHILS % (MANUAL) 1 %; EOSINOPHILS % (MANUAL) 0 %; HYPOCHROMASIA SLIGHT; LYMPHOCYTES % (MANUAL) 18 %; MONOCYTES % (MANUAL) 6 %; NEUTROPHILS % (MANUAL) 75 %
[2018-01-28] MEDS ORDERED: VANCOMYCIN INJECTION 1,000 MG in NS (IVPB) 250 ML IV ONE (23:15)
[2018-01-28] MEDS ORDERED: VANCOMYCIN 1000 MG/VIAL ONE (23:30)
[2018-01-28] MEDS ORDERED: NS (IVPB) 0 ML ONE (23:31)
[2018-01-28] MEDS: GABAPENTIN 300 MG (NEURONTIN) CAP PO SCH (23:35)
[2018-01-29] VITALS (24 sets, daily range): BP systolic 87–177; BP diastolic 49–91
[2018-01-29] MEDS: lamoTRIgine 25 MG (LaMICtal) TAB PO SCH ×2 (03:50→15:28)
[2018-01-29] MEDS: ATORVASTATIN 10 MG (LIPITOR) TABLET PO SCH (03:50)
[2018-01-29] MEDS: carBAMazepine 200 MG (TEGretol) TAB PO SCH ×4 (03:50→21:48)
[2018-01-29] MEDS: lisINopril 20 MG (PRINIVIL) TABLET PO SCH (03:50)
[2018-01-29 03:54] LABS: BILIRUBIN,URINE NEGATIVE (NEGATIVE); CLARITY,URINE CLEAR; COLOR,URINE YELLOW; GLUCOSE, URINE (UA) NEGATIVE (NEGATIVE); KETONES,URINE NEGATIVE (NEGATIVE); LEUKOCYTE ESTERASE ,URINE NEGATIVE (NEGATIVE); NITRITE,URINE NEGATIVE (NEGATIVE); PH,URINE 6 (5-9); PROTEIN,URINE NEGATIVE (NEGATIVE); UROBILINOGEN,URINE NORMAL (NORMAL)
[2018-01-29 04:02] LABS: BACTERIA,URINE TRACE /HPF; SQUAMOUS EPITHELIAL CELL,UR RARE /HPF
[2018-01-29 04:07] LABS: BASOPHILS % (AUTO) 0 % (0-10); EOSINOPHILS % (AUTO) 0 % (0-10); HEMATOCRIT 30 % (40-54); HEMOGLOBIN 10.2 G/DL (13.3-17.7); LYMPHOCYTES # (AUTO) 0.5 X 10^3 (1.0-4.0); LYMPHOCYTES % (AUTO) 10 % (12-44); MEAN CORPUSCULAR HEMOGLOBIN 32 PG (25-34); MEAN CORPUSCULAR HGB CONC 34 G/DL (32-36); MEAN CORPUSCULAR VOLUME 93 FL (80-99); MEAN PLATELET VOLUME 8.5 FL (7.4-10.4); MONOCYTES # (AUTO) 0.3 X 10^3 (0.0-1.0); MONOCYTES % (AUTO) 7 % (0-12); NEUTROPHILS # (AUTO) 3.9 X 10^3 (1.8-7.8); NEUTROPHILS % (AUTO) 83 % (42-75); PLATELET COUNT 206 10^3/uL (130-400); RED BLOOD COUNT 3.23 10^6/uL (4.35-5.85); RED CELL DISTRIBUTION WIDTH 14.5 % (10.0-14.5); WHITE BLOOD COUNT 4.7 10^3/uL (4.3-11.0)
[2018-01-29 04:18] LABS: BUN/CREATININE RATIO 12; CALCIUM 9.4 MG/DL (8.5-10.1); CARBON DIOXIDE 25 MMOL/L (21-32); CHLORIDE 93 MMOL/L (98-107); CREATININE SERUM 0.74 MG/DL (0.60-1.30); GFR ESTIMATED > 60; GLUCOSE 113 MG/DL (70-105); MAGNESIUM 1.5 MG/DL (1.8-2.4); PHOSPHORUS 3.1 MG/DL (2.3-4.7); POTASSIUM 4.4 MMOL/L (3.6-5.0); SODIUM 130 MMOL/L (135-145)
--- NOTE | 2018-01-29 06:18 | Pulmonary Consultation ---
History of Present Illness History of Present Illness Date of Consultation 01/29/18 06:13 Time Seen by Provider: 06:13 Date of Admission History of Present Illness 62yo with hx of lung cancer presented to ED and admitted 01/26 secondary to weakness and nausea. Last chemotherapy was last . His weakness has led to increased falls. Pt was admitted to 4th floor and was planning on being discharged today however last night developed increased SOB and persistent fevers. Pt was transferred to ICU and placed on BiPAP. I am consulted for pulmonary management. Allergies and Home Medications Allergies Coded Allergies: aspirin (Unverified Allergy, Mild, DOES NOT WORK WELL W/ OTHER MEDS, ) ibuprofen (Unverified Allergy, Mild, 08/05/17) Home Medications Albuterol Sulfate 2.5 Mg/3 Ml Vial.neb, 2.5 MG NEB 5XD PRN for SHORTNESS OF BREATH, (Reported) Albuterol Sulfate 1 Puff Puff, 2 PUFF IH Q6H PRN for SHORTNESS OF BREATH, ( Reported) 1 PUFF = 90 MCG Amlodipine Besylate 5 Mg Tablet, 5 MG PO 0800, (Reported) Atorvastatin Calcium 10 Mg Tablet, 10 MG PO 0300, (Reported) Bromfenac Sodium 5 Ml Drops, 1 DROP OU TID, (Reported) Carbamazepine 200 Mg Tablet, 200 MG PO 0800,2300,0300, (Reported) Carbamazepine 200 Mg Tablet, 400 MG PO 1500, (Reported) TAKES 2 (200 MG) TABLETS Fluticasone/Salmeterol 1 Each Blst.w.dev, 1 PUFF INH BID, (Reported) Gabapentin 300 Mg Capsule, 300 MG PO 2300, (Reported) Gabapentin 600 Mg Tablet, 600 MG PO 0800,1500, (Reported) Hydrocodone/Acetaminophen 1 Each Tablet, 1 TAB PO Q6H PRN for PAIN-MODERATE, ( Reported) Lamotrigine 100 Mg Tablet, 100 MG PO 1500,2300, (Reported) Lamotrigine 25 Mg Tablet, 25 MG PO 1500,0300, (Reported) Lisinopril 20 Mg Tablet, 20 MG PO 0300, (Reported) Meloxicam 15 Mg Tablet, 15 MG PO 1500, (Reported) Pantoprazole Sodium 40 Mg Tablet.dr, 40 MG PO DAILY PRN for HEARTBURN, (Reported ) Phenytoin Sodium Extended 100 Mg Capsule, 200 MG PO 0800,1500, (Reported) TAKES 2 (100 MG) CAPSULES Phenytoin Sodium Extended 100 Mg Capsule, 100 MG PO 2300, (Reported) Ropinirole HCl 0.25 Mg Tablet, 0.25 MG PO 0800,1500,2300, (Reported) Tiotropium Acme 1 Inh Aerp, 1 CAP IH DAILY, (Reported) Past Njxsoph-Rbcrfd-Ovluvr Hx Patient Social History Alcohol Use: Denies Use Recreational Drug Use: Yes (not current, 15 years ago-ETOH and PO drugs) Smoking Status: Former Smoker Type Used: Cigarettes Former Smoker, Quit: Feb 12, 2017 2nd Hand Smoke Exposure: No Recent Foreign Travel: No Contact w/Someone Who Travel: No Recent Infectious Disease Expo: No Recent Hopitalizations: Yes Immunizations Up To Date Tetanus Booster (TDap): Unknown PED Vaccines UTD: Yes Seasonal Allergies Seasonal Allergies: Yes Past Medical History Surgeries: Yes Gallbladder Respiratory: Yes (METASTATIC LUNG CANCER DX 05/2017/COPD) Asthma, Pneumonia, Sleep Apnea, COPD Currently Using CPAP: No Currently Using BIPAP: Yes Cardiac: Yes High Cholesterol, Hypertension Neurological: Yes (post polio syndrome with left-sided deficits) Seizure Disorder Reproductive Disorders: No Sexually Transmitted Disease: No HIV/AIDS: No Genitourinary: No Gastrointestinal: No Musculoskeletal: Yes Arthritis Endocrine: No HEENT: No Loss of Vision: Denies Hearing Impairment: Denies Cancer: Yes Lung Did You Recieve Any Treatments: Yes What Type of Treatment Did You: Chemotherapy Psychosocial: No Integumentary: No Blood Disorders: No Adverse Reaction/Blood Tranf: No Family Medical History Hypercholesterolemia 19 FATHER Hypertension 19 FATHER No Pertinent Family Hx, Heart Disease Review of Systems Time Seen by Provider: 06:24 Constitutional: Fever, Chills, Sweats, Other Eyes: No: Pain, Vision change, Conjunctivae inflammation, Eyelid inflammation, Other, Redness ENT: No: Ear pain, Ear discharge, Nose pain, Nose discharge, Nose congestion, Mouth pain, Mouth swelling, Throat pain, Throat swelling, Other Respiratory: Cough, Shortness of breath, SOB with excertion Cardiovascular: Palpitations, Paroxysmal Noc. Dyspnea, Lt Headedness; No: Chest Pain Gastrointestinal: No: Nausea, Vomiting Sepsis Event Evaluation Height, Weight, BMI Height: 6'0.00" Weight: 176lbs. 0.0oz. 79.105106yn; 23.9 BMI Method:Stated Exam Exam Vital Signs Date Time Temp Pulse Resp B/P (MAP) Pulse Ox O2 Delivery O2 Flow Rate FiO2 01/29/18 06:00 93 15 144/81 (102) 97 NIV Bilevel 45.00 01/29/18 05:00 90 31 125/70 (88) 91 NIV Bilevel 45.00 01/29/18 04:08 89 24 100 45.00 01/29/18 04:00 91 23 149/80 (103) 95 NIV Bilevel 45.00 01/29/18 03:00 81 24 146/83 (104) 99 NIV Bilevel 45.00 01/29/18 02:00 74 14 135/78 (97) 98 NIV Bilevel 45.00 01/29/18 01:53 79 18 95 45.00 01/29/18 01:00 76 01/29/18 01:00 76 16 111/72 (85) 98 NIV Bilevel 45.00 01/29/18 00:00 90 NIV Bilevel 45 01/29/18 00:00 85 14 112/72 (85) 97 NIV Bilevel 45.00 01/28/18 23:36 92 20 97 45.00 01/28/18 23:00 97 10 127/96 (106) 98 NIV Bilevel 45.00 01/28/18 22:30 99 20 132/92 (105) 96 NIV Bilevel 45.00 01/28/18 22:00 102 18 136/82 (100) 97 NIV Bilevel 45.00 01/28/18 21:41 113 22 96 45.00 01/28/18 21:30 104.0 101 16 136/83 (100) 95 NIV Bilevel 45.00 01/28/18 21:25 90 NIV Bilevel 45 01/28/18 20:40 103.8 01/28/18 20:00 90 Nasal Cannula 4.00 01/28/18 19:45 112 26 183/93 (123) 90 Nasal Cannula 4.00 01/28/18 19:40 99.0 105 20 160/82 (108) 92 Nasal Cannula 4.00 01/28/18 19:00 102 01/28/18 18:32 94 Nasal Cannula 4.00 01/28/18 18:24 94 Nasal Cannula 4.00 01/28/18 16:00 97.8 79 16 154/74 (100) 95 Nasal Cannula 4.00 01/28/18 14:40 95 Nasal Cannula 4.00 01/28/18 13:00 59 01/28/18 12:00 96.4 72 20 151/73 (99) 90 Nasal Cannula 4.00 01/28/18 10:58 96 Nasal Cannula 4.00 01/28/18 08:15 Nasal Cannula 4.00 01/28/18 08:00 97.1 67 20 175/83 (113) 95 Nasal Cannula 4.00 01/28/18 07:09 98 Nasal Cannula 4.00 01/28/18 07:06 98 Nasal Cannula 4.00 01/28/18 07:00 73 I & O 01/29/18 07:00 Intake Total 1850 ml Output Total 1000 ml Balance 850 ml Height & Weight Height: 6'0.00" Weight: 176lbs. 0.0oz. 79.853671ns; 23.9 BMI Method:Stated General Appearance: WD/WN, Anxious, Chronically ill, Moderate Distress HEENT: Normal ENT Inspection Neck: Full Range of Motion, Normal Inspection Respiratory: Accessory Muscle Use, Decreased Breath Sounds, Respiratory Distress Cardiovascular: Regular Rate, Rhythm, No Murmur Capillary Refill: Less Than 3 Seconds Gastrointestinal: non tender, soft Extremity: Normal Inspection, No Pedal Edema Neurologic/Psychiatric: Alert, Oriented x3, No Motor/Sensory Deficits, Normal Mood/Affect Skin: Normal Color, Warm/Dry Results Lab Laboratory Tests 01/28/18 05:40 01/28/18 21:25 01/29/18 03:50 Assessment/Plan Assessment/Plan Acute on chronic respiratory failure -BiPAP -will trial pt on Vapotherm -Change SVNs to Q4hrs and add Solumedrol RLL pneumonia with hypoxia -Add vancomycin to Cefepime -repeat influenza swab COPDAE -SVNs, advair 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
[2018-01-29] MEDS: RT-ALBUTEROL/IPRATROPIUM 3 ML (DUONEB) VIAL INH SCH ×5 (06:35→22:00)
[2018-01-29] MEDS: RT-ADVAIR HFA 115/21 MCG PER PUFF IH SCH ×2 (06:35→18:28)
[2018-01-29] MEDS: UMECLIDINIUM BROMIDE (INCRUSE ELLIPTA) 7'S IH SCH (06:41)
--- NOTE | 2018-01-29 06:45 | Diagnostic Imaging Report ---
INDICATION: Pneumonia. Lung cancer. COMPARISON: 01/28/2018 FINDINGS: Single frontal radiographic view of the chest was obtained and demonstrates persistent patchy bibasilar alveolar opacities concerning for pneumonia. There has been some interval progression in the lateral right base. Heart size is within normal limits on today's exam. Pulmonary vasculature is unremarkable as well. There is no large effusion or pneumothorax. Right-sided internal jugular Port-A-Cath is noted in stable position. IMPRESSION: 1. Findings concerning for bibasilar infiltrates with interval progression on the right. Dictated by: Dictated on workstation # [id number]
[2018-01-29] MEDS: PANTOPRAZOLE 40 MG (PROTONIX) TAB PO SCH (06:59)
[2018-01-29] MEDS: CEFEPIME 2 GM/NS 50 ML IVPB IV SCH ×4 (06:59→17:42)
--- NOTE | 2018-01-29 07:38 | Progress Note (SOAP) ---
Subjective Time Seen by a Provider: 07:34 Subjective/Events-last exam Patient last night turn for the worse. Patient transferred to ICU. Patient put on BiPAP. Chest x-ray shows progression of right lower lobe pneumonia. Patient's blood pressure malignant. Patient short of breath. Patient this morning feeling better. Patient on Vapotherm Focused Exam Lactate Level 01/26/18 13:35: Lactic Acid Level 1.41 01/28/18 21:25: Lactic Acid Level 0.94 Objective Exam Vital Signs Date Time Temp Pulse Resp B/P (MAP) Pulse Ox O2 Delivery O2 Flow Rate FiO2 01/29/18 06:41 93 Vapotherm 15.00 45 01/29/18 06:35 118 26 122/71 (88) 92 Vapotherm 45.00 15.00 01/29/18 06:00 93 15 144/81 (102) 97 NIV Bilevel 45.00 01/29/18 05:00 90 31 125/70 (88) 91 NIV Bilevel 45.00 01/29/18 04:08 89 24 100 45.00 01/29/18 04:00 91 23 149/80 (103) 95 NIV Bilevel 45.00 01/29/18 03:00 81 24 146/83 (104) 99 NIV Bilevel 45.00 01/29/18 02:00 74 14 135/78 (97) 98 NIV Bilevel 45.00 01/29/18 01:53 79 18 95 45.00 01/29/18 01:00 76 01/29/18 01:00 76 16 111/72 (85) 98 NIV Bilevel 45.00 01/29/18 00:00 90 NIV Bilevel 45 01/29/18 00:00 85 14 112/72 (85) 97 NIV Bilevel 45.00 01/28/18 23:36 92 20 97 45.00 01/28/18 23:00 97 10 127/96 (106) 98 NIV Bilevel 45.00 01/28/18 22:30 99 20 132/92 (105) 96 NIV Bilevel 45.00 01/28/18 22:00 102 18 136/82 (100) 97 NIV Bilevel 45.00 01/28/18 21:41 113 22 96 45.00 01/28/18 21:30 104.0 101 16 136/83 (100) 95 NIV Bilevel 45.00 01/28/18 21:25 90 NIV Bilevel 45 01/28/18 20:40 103.8 01/28/18 20:00 90 Nasal Cannula 4.00 01/28/18 19:45 112 26 183/93 (123) 90 Nasal Cannula 4.00 01/28/18 19:40 99.0 105 20 160/82 (108) 92 Nasal Cannula 4.00 01/28/18 19:00 102 01/28/18 18:32 94 Nasal Cannula 4.00 01/28/18 18:24 94 Nasal Cannula 4.00 01/28/18 16:00 97.8 79 16 154/74 (100) 95 Nasal Cannula 4.00 01/28/18 14:40 95 Nasal Cannula 4.00 01/28/18 13:00 59 01/28/18 12:00 96.4 72 20 151/73 (99) 90 Nasal Cannula 4.00 01/28/18 10:58 96 Nasal Cannula 4.00 01/28/18 08:15 Nasal Cannula 4.00 01/28/18 08:00 97.1 67 20 175/83 (113) 95 Nasal Cannula 4.00 I & O 01/29/18 07:00 Intake Total 1850 ml Output Total 1000 ml Balance 850 ml Capillary Refill : Less Than 3 Seconds General Appearance: No Apparent Distress, WD/WN HEENT: Normal ENT Inspection Neck: Full Range of Motion, Normal Inspection Respiratory: No Accessory Muscle Use, No Respiratory Distress, Decreased Breath Sounds, Other (Coffee burn on chest) Cardiovascular: Regular Rate, Rhythm, No Murmur Gastrointestinal: non tender, soft Results Lab Laboratory Tests 01/28/18 21:25 01/29/18 03:50 Laboratory Tests 01/28/18 20:50: Blood Gas Puncture Site RT RAD, Blood Gas Patient Temperature 103.8, Arterial Blood pH 7.39, Arterial Blood Partial Pressure CO2 53H, Arterial Blood Partial Pressure O2 70L, Arterial Blood HCO3 30H, Arterial Blood Total CO2 31.7H, Arterial Blood Oxygen Saturation 90L, Arterial Blood Base Excess 6.0H, Johan Test YES-POS, Blood Gas Ventilator Setting NO, Blood Gas Inspired Oxygen 6L 01/28/18 21:25: White Blood Count 5.8, Red Blood Count 3.24L, Hemoglobin 9.9L, Hematocrit 30L, Mean Corpuscular Volume 94, Mean Corpuscular Hemoglobin 31, Mean Corpuscular Hemoglobin Concent 33, Red Cell Distribution Width 14.2, Platelet Count 200, Mean Platelet Volume 8.9, Neutrophils (%) (Auto) 84H, Lymphocytes (%) (Auto) 7L , Monocytes (%) (Auto) 8, Eosinophils (%) (Auto) 0, Basophils (%) (Auto) 0, Neutrophils # (Auto) 4.9, Lymphocytes # (Auto) 0.4L, Monocytes # (Auto) 0.5, Eosinophils # (Auto) 0.0, Basophils # (Auto) 0.0, Neutrophils % (Manual) 75, Lymphocytes % (Manual) 18, Monocytes % (Manual) 6, Eosinophils % (Manual) 0, Basophils % (Manual) 1, Band Neutrophils 0, Hypochromasia SLIGHT, Anisocytosis SLIGHT, Sodium Level 134L, Potassium Level 4.2, Chloride Level 95L, Carbon Dioxide Level 27, Anion Gap 12, Blood Urea Nitrogen 7, Creatinine 0.70, Estimat Glomerular Filtration Rate > 60, BUN/Creatinine Ratio 10, Glucose Level 120H, Lactic Acid Level 0.94, Calcium Level 9.5 01/29/18 03:42: Urine Color YELLOW, Urine Clarity CLEAR, Urine pH 6, Urine Specific [place] 1.010L, Urine Protein NEGATIVE, Urine Glucose (UA) NEGATIVE, Urine Ketones NEGATIVE, Urine Nitrite NEGATIVE, Urine Bilirubin NEGATIVE, Urine Urobilinogen NORMAL, Urine Leukocyte Esterase NEGATIVE, Urine RBC (Auto) NEGATIVE, Urine RBC NONE, Urine WBC NONE, Urine Squamous Epithelial Cells RARE, Urine Crystals NONE , Urine Bacteria TRACE, Urine Casts NONE, Urine Mucus NEGATIVE, Urine Culture Indicated NO 01/29/18 03:50: White Blood Count 4.7, Red Blood Count 3.23L, Hemoglobin 10.2L, Hematocrit 30L, Mean Corpuscular Volume 93, Mean Corpuscular Hemoglobin 32, Mean Corpuscular Hemoglobin Concent 34, Red Cell Distribution Width 14.5, Platelet Count 206, Mean Platelet Volume 8.5, Neutrophils (%) (Auto) 83H, Lymphocytes (%) (Auto) 10L , Monocytes (%) (Auto) 7, Eosinophils (%) (Auto) 0, Basophils (%) (Auto) 0, Neutrophils # (Auto) 3.9, Lymphocytes # (Auto) 0.5L, Monocytes # (Auto) 0.3, Eosinophils # (Auto) 0.0, Basophils # (Auto) 0.0, Sodium Level 130L, Potassium Level 4.4, Chloride Level 93L, Carbon Dioxide Level 25, Anion Gap 12, Blood Urea Nitrogen 9, Creatinine 0.74, Estimat Glomerular Filtration Rate > 60, BUN/ Creatinine Ratio 12, Glucose Level 113H, Calcium Level 9.4, Phosphorus Level 3.1 , Magnesium Level 1.5L Microbiology 01/26/18 Blood Culture - Preliminary, Resulted No growth 01/26/18 Influenza Types A,B Antigen (VY) - Final, Complete Assessment/Plan Assessment/Plan Assess & Plan/Chief Complaint Right lower lung pneumonia. Short of breath. Lung cancer. Chemotherapy last . History of COPD. History of tobaccoism. . 01/28/18. Right lower lobe pneumonia. Shortness of breath. Lung cancer. Chemotherapy last . History of tobaccoism. History of COPD. Patient will be discharged tomorrow. Patient has some shortness of breath with exertion yesterday area Chest x-ray not done yet. . 01/29/18. Right lower lobe pneumonia progressing. Acute and chronic respiratory failure. Lung cancer. Chemotherapy last . History of tobaccoism. History of COPD. Hypomagnesemia. Chest x-ray right lower lobe progressing Clinical Quality Measures Admission Status Admission Dx Echo lobe pneumonia. Fever. Lung cancer. Nausea and vomiting. History of tobaccoism stop last January DVT/VTE Risk/Contraindication: Risk Factor Score Per Nursin RFS Level Per Nursing on Admit: 4+=Very High AMANDEEP GENAO DO Jan 29, 2018 07:38
[2018-01-29] MEDS: POTASSIUM CL 10MEQ/50ML IVPB 50 ML IV SCH (07:53)
[2018-01-29] MEDS: MAGNESIUM 1 GM/100 ML IVPB 100 ML IV SCH ×3 (07:53→09:19)
[2018-01-29] MEDS: KCL 20 MEQ TAB (K-DUR) PO SCH (07:53)
[2018-01-29] MEDS: ARTIFICAL TEARS 0.4 ML UNIT DOSE (REFRESH PLUS) OD SCH ×3 (08:06→21:47)
[2018-01-29] MEDS: VANCOMYCIN 1 GM/NS 250 ML IVPB IV SCH ×4 (08:06→18:23)
[2018-01-29] MEDS: amLODIPine 5 MG (NORVASC) TAB PO SCH (08:07)
[2018-01-29] MEDS: PHENYTOIN 100 MG (DILANTIN) CAP PO SCH ×3 (08:07→21:48)
[2018-01-29] MEDS: ACETAMINOPHEN 500 MG TAB (TYLENOL) PO PRN (08:07)
[2018-01-29] MEDS: GABAPENTIN 600 MG (NEURONTIN) TAB PO SCH ×2 (08:08→15:27)
[2018-01-29] MEDS: rOPINIRole 0.25 MG (REQUIP) TAB PO SCH ×3 (09:20→21:47)
[2018-01-29] MEDS: methylPREDNISolone 40 MG/ML (Solu-MEDROL) VIAL IV SCH ×2 (12:29→17:41)
[2018-01-29] MEDS: MELOXICAM 7.5 MG (MOBIC) TABLET PO SCH (15:27)
[2018-01-29] MEDS: ENOXAPARIN 40 MG/0.4 ML (LOVENOX) SYR SC SCH (17:42)
[2018-01-29] MEDS: SILVER SULFADIAZINE 50 GM CREAM TOP SCH (21:47)
[2018-01-29] MEDS: GABAPENTIN 300 MG (NEURONTIN) CAP PO SCH (21:47)
[2018-01-30] VITALS (18 sets, daily range): BP systolic 89–150; BP diastolic 54–91
[2018-01-30] MEDS: methylPREDNISolone 40 MG/ML (Solu-MEDROL) VIAL IV SCH ×5 (00:56→23:42)
[2018-01-30] MEDS: RT-ALBUTEROL/IPRATROPIUM 3 ML (DUONEB) VIAL INH SCH ×6 (02:14→22:25)
[2018-01-30] MEDS: carBAMazepine 200 MG (TEGretol) TAB PO SCH ×4 (03:49→22:50)
[2018-01-30] MEDS: ATORVASTATIN 10 MG (LIPITOR) TABLET PO SCH (03:49)
[2018-01-30] MEDS: lisINopril 20 MG (PRINIVIL) TABLET PO SCH (03:49)
[2018-01-30] MEDS: lamoTRIgine 25 MG (LaMICtal) TAB PO SCH ×2 (03:49→15:24)
[2018-01-30 04:15] LABS: BASOPHILS % (AUTO) 0 % (0-10); EOSINOPHILS % (AUTO) 0 % (0-10); HEMATOCRIT 28 % (40-54); HEMOGLOBIN 9.4 G/DL (13.3-17.7); LYMPHOCYTES # (AUTO) 0.3 X 10^3 (1.0-4.0); LYMPHOCYTES % (AUTO) 5 % (12-44); MEAN CORPUSCULAR HEMOGLOBIN 31 PG (25-34); MEAN CORPUSCULAR HGB CONC 33 G/DL (32-36); MEAN CORPUSCULAR VOLUME 93 FL (80-99); MEAN PLATELET VOLUME 8.9 FL (7.4-10.4); MONOCYTES # (AUTO) 0.4 X 10^3 (0.0-1.0); MONOCYTES % (AUTO) 6 % (0-12); NEUTROPHILS # (AUTO) 5.8 X 10^3 (1.8-7.8); NEUTROPHILS % (AUTO) 89 % (42-75); PLATELET COUNT 189 10^3/uL (130-400); RED BLOOD COUNT 3.04 10^6/uL (4.35-5.85); RED CELL DISTRIBUTION WIDTH 14.1 % (10.0-14.5); WHITE BLOOD COUNT 6.5 10^3/uL (4.3-11.0)
[2018-01-30 04:36] LABS: BUN/CREATININE RATIO 17; CALCIUM 9.3 MG/DL (8.5-10.1); CARBON DIOXIDE 21 MMOL/L (21-32); CHLORIDE 94 MMOL/L (98-107); CREATININE SERUM 0.69 MG/DL (0.60-1.30); GFR ESTIMATED > 60; GLUCOSE 121 MG/DL (70-105); MAGNESIUM 2.1 MG/DL (1.8-2.4); PHOSPHORUS 2.4 MG/DL (2.3-4.7); POTASSIUM 4.4 MMOL/L (3.6-5.0); SODIUM 129 MMOL/L (135-145)
[2018-01-30] MEDS ORDERED: TROUGH ORDER-PHARMACY XX NR (06:00)
[2018-01-30] MEDS: PANTOPRAZOLE 40 MG (PROTONIX) TAB PO SCH (06:49)
[2018-01-30] MEDS: CEFEPIME 2 GM/NS 50 ML IVPB IV SCH ×4 (06:49→17:05)
[2018-01-30] MEDS: POTASSIUM CL 10MEQ/50ML IVPB 50 ML IV SCH (06:52)
[2018-01-30] MEDS: MAGNESIUM 1 GM/100 ML IVPB 100 ML IV SCH (06:53)
[2018-01-30] MEDS: KCL 20 MEQ TAB (K-DUR) PO SCH (06:54)
[2018-01-30] MEDS: UMECLIDINIUM BROMIDE (INCRUSE ELLIPTA) 7'S IH SCH (06:59)
[2018-01-30] MEDS: RT-ADVAIR HFA 115/21 MCG PER PUFF IH SCH ×2 (06:59→19:09)
--- NOTE | 2018-01-30 07:32 | Progress Note (SOAP) ---
Subjective Time Seen by a Provider: 07:30 Subjective/Events-last exam feeling much better today. Patient breathing better. Lung congestion less. Waiting for chest x-ray report. Sodium 129. Anemia. Chest x-ray yesterday showed progression of pneumonia Focused Exam Lactate Level 01/28/18 21:25: Lactic Acid Level 0.94 Objective Exam Vital Signs Date Time Temp Pulse Resp B/P (MAP) Pulse Ox O2 Delivery O2 Flow Rate FiO2 01/30/18 07:03 Vapotherm 10.00 45 01/30/18 06:57 98 Vapotherm 15.00 45 01/30/18 06:00 75 27 124/75 (91) 97 Vapotherm 45.00 15.00 01/30/18 05:00 79 14 92/61 (71) 97 Vapotherm 45.00 15.00 01/30/18 04:00 15 Vapotherm 45 01/30/18 04:00 77 35 130/71 (90) 96 Vapotherm 45.00 15.00 01/30/18 03:00 80 132/73 (92) 96 Vapotherm 45.00 15.00 01/30/18 02:15 95 Vapotherm 15.00 45 01/30/18 02:00 67 18 103/59 (74) 93 Vapotherm 45.00 15.00 01/30/18 01:00 63 17 89/59 (69) 87 Vapotherm 45.00 15.00 01/30/18 01:00 67 01/30/18 00:00 15 Vapotherm 45 01/30/18 00:00 72 15 93/54 (67) 89 Vapotherm 45.00 15.00 01/29/18 23:00 67 16 87/55 (66) 98 Vapotherm 45.00 15.00 01/29/18 22:27 NIV Bilevel 45.00 01/29/18 22:10 70 16 99 45.00 01/29/18 22:01 96 Vapotherm 15.00 45 01/29/18 21:00 66 20 87/66 (73) 96 Vapotherm 45.00 15.00 01/29/18 20:00 81 19 128/66 (86) 95 Vapotherm 45.00 15.00 01/29/18 20:00 15 Vapotherm 45 01/29/18 20:00 98.4 01/29/18 19:00 68 01/29/18 19:00 68 22 94/53 (67) 96 Vapotherm 45.00 15.00 01/29/18 18:28 95 Vapotherm 15.00 45 01/29/18 18:00 73 17 114/65 (81) 94 Vapotherm 45.00 15.00 01/29/18 17:00 79 17 113/62 (79) 96 Vapotherm 45.00 15.00 01/29/18 16:00 80 23 116/66 (83) 98 Vapotherm 45.00 15.00 01/29/18 15:31 99.5 Vapotherm 45.00 15.00 01/29/18 15:30 15 Vapotherm 45 01/29/18 15:00 79 24 120/79 (93) 98 Vapotherm 45.00 15.00 01/29/18 14:22 99 Vapotherm 15.00 45 01/29/18 14:00 89 21 141/49 (79) 99 Vapotherm 45.00 15.00 01/29/18 13:00 80 01/29/18 13:00 75 33 103/69 (80) 96 Vapotherm 45.00 15.00 01/29/18 12:32 98.9 Vapotherm 45.00 15.00 01/29/18 12:30 15 Vapotherm 45 01/29/18 12:00 68 22 103/73 (83) 96 Vapotherm 45.00 15.00 01/29/18 11:35 98.8 01/29/18 11:00 75 20 96/76 (83) 94 Vapotherm 45.00 15.00 01/29/18 10:26 96 Vapotherm 15.00 45 01/29/18 10:00 76 10 108/74 (85) 91 Vapotherm 45.00 15.00 01/29/18 09:00 85 29 116/68 (84) 95 Vapotherm 45.00 15.00 01/29/18 08:37 100.0 01/29/18 08:07 101.5 01/29/18 08:00 15 Vapotherm 45 01/29/18 08:00 96 27 137/82 (100) 92 Vapotherm 45.00 15.00 01/29/18 07:52 101.5 I & O 01/30/18 07:00 Intake Total 2150 ml Output Total 1575 ml Balance 575 ml Capillary Refill : Less Than 3 Seconds General Appearance: No Apparent Distress, WD/WN HEENT: Normal ENT Inspection Neck: Full Range of Motion, Normal Inspection Respiratory: No Accessory Muscle Use, No Respiratory Distress, Decreased Breath Sounds, Other (Congestion less) Cardiovascular: Regular Rate, Rhythm, No Murmur Gastrointestinal: non tender, soft Results Lab Laboratory Tests 01/30/18 04:05 Laboratory Tests 01/29/18 12:30: B-Type Natriuretic Peptide 318.8H 01/30/18 04:05: White Blood Count 6.5, Red Blood Count 3.04L, Hemoglobin 9.4L, Hematocrit 28L, Mean Corpuscular Volume 93, Mean Corpuscular Hemoglobin 31, Mean Corpuscular Hemoglobin Concent 33, Red Cell Distribution Width 14.1, Platelet Count 189, Mean Platelet Volume 8.9, Neutrophils (%) (Auto) 89H, Lymphocytes (%) (Auto) 5L , Monocytes (%) (Auto) 6, Eosinophils (%) (Auto) 0, Basophils (%) (Auto) 0, Neutrophils # (Auto) 5.8, Lymphocytes # (Auto) 0.3L, Monocytes # (Auto) 0.4, Eosinophils # (Auto) 0.0, Basophils # (Auto) 0.0, Sodium Level 129L, Potassium Level 4.4, Chloride Level 94L, Carbon Dioxide Level 21, Anion Gap 14, Blood Urea Nitrogen 12, Creatinine 0.69, Estimat Glomerular Filtration Rate > 60, BUN/ Creatinine Ratio 17, Glucose Level 121H, Calcium Level 9.3, Phosphorus Level 2.4 , Magnesium Level 2.1 01/30/18 06:51: Vancomycin Level Trough 8.0L Microbiology 01/28/18 Blood Culture - Preliminary, Resulted No growth 01/29/18 Influenza Types A,B Antigen (VY) - Final, Complete Assessment/Plan Assessment/Plan Assess & Plan/Chief Complaint Right lower lung pneumonia. Short of breath. Lung cancer. Chemotherapy last . History of COPD. History of tobaccoism. . 01/28/18. Right lower lobe pneumonia. Shortness of breath. Lung cancer. Chemotherapy last . History of tobaccoism. History of COPD. Patient will be discharged tomorrow. Patient has some shortness of breath with exertion yesterday area Chest x-ray not done yet. . 01/29/18. Right lower lobe pneumonia progressing. Acute and chronic respiratory failure. Lung cancer. Chemotherapy last . History of tobaccoism. History of COPD. Hypomagnesemia. Chest x-ray right lower lobe progressing. . 01/30/18. Right lower lobe pneumonia. Acute and chronic respiratory failure. Lung cancer. History of COPD. Hyponatremia. Anemia. Patient improving and doing better Clinical Quality Measures Admission Status Admission Dx Echo lobe pneumonia. Fever. Lung cancer. Nausea and vomiting. History of tobaccoism stop last January DVT/VTE Risk/Contraindication: Risk Factor Score Per Nursin RFS Level Per Nursing on Admit: 4+=Very High AMANDEEP GENAO DO Jan 30, 2018 07:32
--- NOTE | 2018-01-30 07:35 | Diagnostic Imaging Report ---
INDICATION: Dyspnea. Comparison is made with prior examination from 01/29/18. FINDINGS: Heart size is normal. There is bibasilar atelectasis and/or pneumonitis, right greater than left. There is no pneumothorax. Mediastinum is unremarkable. [id number] catheter overlies right hemithorax. IMPRESSION: Bibasal atelectasis and/or pneumonitis, right greater than left. May be some minimal venous congestion. Dictated by: Dictated on workstation # [id number]
[2018-01-30] MEDS: GABAPENTIN 600 MG (NEURONTIN) TAB PO SCH ×2 (08:03→15:24)
[2018-01-30] MEDS: VANCOMYCIN INJECTION 1,500 MG in NS IV 500 ML 500 ML IV SCH ×2 (08:04→18:42)
[2018-01-30] MEDS: amLODIPine 5 MG (NORVASC) TAB PO SCH (08:04)
[2018-01-30] MEDS: SILVER SULFADIAZINE 50 GM CREAM TOP SCH ×2 (08:05→21:04)
[2018-01-30] MEDS: PHENYTOIN 100 MG (DILANTIN) CAP PO SCH ×3 (08:05→22:50)
[2018-01-30] MEDS: rOPINIRole 0.25 MG (REQUIP) TAB PO SCH ×3 (08:05→22:50)
[2018-01-30] MEDS: ARTIFICAL TEARS 0.4 ML UNIT DOSE (REFRESH PLUS) OD SCH ×3 (08:05→21:04)
--- NOTE | 2018-01-30 13:12 | Physical Therapy Evaluation ---
PT Evaluation-General Medical Diagnosis Admission Date Jan 26, 2018 at 15:30 Medical Diagnosis: Shorntess of Breath Onset Date: Feb 26, 2018 Therapy Diagnosis Therapy Diagnosis: Debility / General Weakness Height/Weight Height (Feet): 6 Height (Inches): 0.00 Weight (Pounds): 176 Weight (Ounces): 0.0 Precautions Precautions/Isolations: Seizure, Fall Prevention, Standard Precautions, Pressure Ulcer Weight Bear Status Right Lower Extremity: Right Full Weight Bearing Left Lower Extremity: Left Full Weight Bearing Referral Physician: Micky Feng DO Reason for Referral: Evaluation/Treatment Medical History Pertinent Medical History: Arthritis, COPD, Heart Failure, HTN, Post Polio Syndrome, Smoking Additional Medical History 15 years of ETOH abuse, Emphysema, Pneumonia, High cholesterol, Post-Polio(left side impacted), Seizure disorder, Lung cancer Current History Patient admitted to ICU from 4th floor following SOB. Social History Home: Single Level Current Living Status: Spouse Entry Into Home: Stairs With Railing PT Steps Into Home: 3 PT Steps Inside Home: 0 Prior/Core FIM Prior Level of Function Functional [place] Measure 0=Not Assessed/NA 4=Minimal Assistance 1=Total Assistance 5=Supervision or Setup 2=Maximal Assistance 6=Modified [place] 3=Moderate Assistance 7=Complete IndependenceIRFPAI Quality Coding Scale 6 Independent with activity with or without an assistive device 5 Patient requires set up or clean up by helper. Patient completes activity by themselves 4 Supervision or touching assist (CGA). [place] provide cues , steadying assist 3 The helper provides less than half the effort to complete the activity 2 The helper provides more than half the effort to complete the activity 1 Dependent. The helper does all the effort to complete an activity 7 Patient refused to complete or attempt activity 9 The patient did not perform the activity before the current illness or injury 88 Not attempted due to Medical conditions or safety concerns Bed Mobility: 5 Transfers (B,C,W/C) (FIM): 5 Gait: 6 Stairs: 5 PT Evaluation-Current Subjective Patient was up in chair eating lunch when PT arrived. Pt agreed to evaluation by PT Pain Numeric Pain Scale: 0-No Pain Location: No Pain Reported Objective Patient Orientation: [place], Normal For Age Problem Solving: Fair Attachments: Oxygen, IV ROM/Strength ROM Upper Extremities WNL ROM Lower Extremities WNL Strength Upper Extremities WNL Strength Lower Extremities R 4/5 strength for LE, L 3/5 strength for LE Integumentary/Posture Bowel Incontinence: No Bladder Incontinence: No Neuromuscular (Tone, Coordination, Reflexes) diminished coordination left side secondary to polio Sensory Vision: Functional Hearing: Functional Sensation Right Upper Extremit: Intact Sensation Left Upper Extremity: Intact Sensation Right Lower Extremit: Intact Sensation Left Lower Extremity: Intact Transfers Functional [place] Measure 0=Not Assessed/NA 4=Minimal Assistance 1=Total Assistance 5=Supervision or Setup 2=Maximal Assistance 6=Modified [place] 3=Moderate Assistance 7=Complete [place] Transfers (B, C, W/C) (FIM): 4 Scootin Sit to/from Stand: 4 Gait Mode of Locomotion: Walk Anticipated Mode of Locomotion: Walk Gait (FIM): 1 Distance (FIM): 1=up to 49 ft Distance: 5 Gait Level of Assist: 4 Gait Persons Needed: 1 Gait Assistive Device: None Comments/Gait Description due to unsteady gait will require FWW Balance Sitting Static: Normal Sitting Dynamic: Normal Standing Static: Fair Standing Dynamic: Poor Assessment/Needs Patient was able to stand and remain standing for 4 mins. Patient was able to walk 5 ft but needed CGA from therapist throughout duration. Patient will benefit from skilled therapy to maintain endurance and strength for functional activities. Rehab Potential: Fair PT Detention Goals Detention Goals PT Second Facing [place] Goals Time Frame: Feb 06, 2018 Transfers (B,C,W/C) (FIM): 5 Gait (FIM): 2 Gait distance (FIM): 4=990-04 ft Distance: 50' Gait Level of Assist: 5 PT Plan Problem List Problem List: Activity Tolerance, Functional Strength, Safety, Balance, Gait, Transfer, Bed Mobility Treatment/Plan Treatment Plan: Continue Plan of Care Treatment Plan: Bed Mobility, Education, Functional Strength, Gait, Safety, Therapeutic Exercise, Transfers Treatment Duration: Feb 06, 2018 Frequency: 6 times per week Estimated Hrs Per Day: .25 hour per day Patient and/or Family Agrees t: Yes Safety Risks/Education Patient Education: Gait Training, Correct Positioning, Safety Issues Teaching Recipient: Patient Response to Teaching: Reinforcement Needed Time/GCodes Time In: 1238 Time Out: 1250 Total Billed Treatment Time: 12 Total Billed Treatment 1 visit [facility] - 12' LAVON LAMAS PT Jan 30, 2018 13:12
[2018-01-30] MEDS: MELOXICAM 7.5 MG (MOBIC) TABLET PO SCH (15:24)
[2018-01-30] MEDS: ENOXAPARIN 40 MG/0.4 ML (LOVENOX) SYR SC SCH (17:06)
[2018-01-30] MEDS: GABAPENTIN 300 MG (NEURONTIN) CAP PO SCH (22:50)
[2018-01-31] VITALS: BP 132/63
[2018-01-31] MEDS: RT-ALBUTEROL/IPRATROPIUM 3 ML (DUONEB) VIAL INH SCH ×6 (02:48→22:55)
[2018-01-31] MEDS: lamoTRIgine 25 MG (LaMICtal) TAB PO SCH ×2 (02:52→15:37)
[2018-01-31] MEDS: lisINopril 20 MG (PRINIVIL) TABLET PO SCH (02:52)
[2018-01-31] MEDS: ATORVASTATIN 10 MG (LIPITOR) TABLET PO SCH (02:52)
[2018-01-31] MEDS: carBAMazepine 200 MG (TEGretol) TAB PO SCH ×4 (02:52→23:25)
[2018-01-31 04:00] VITALS: BP 157/83
[2018-01-31] MEDS: CEFEPIME 2 GM/NS 50 ML IVPB IV SCH ×4 (04:46→17:16)
[2018-01-31] MEDS: rOPINIRole 0.25 MG (REQUIP) TAB PO SCH ×3 (04:46→23:25)
[2018-01-31] MEDS: methylPREDNISolone 40 MG/ML (Solu-MEDROL) VIAL IV SCH ×3 (05:20→17:16)
[2018-01-31] MEDS: PANTOPRAZOLE 40 MG (PROTONIX) TAB PO SCH (06:20)
[2018-01-31] MEDS: RT-ADVAIR HFA 115/21 MCG PER PUFF IH SCH ×2 (06:26→19:00)
[2018-01-31] MEDS: UMECLIDINIUM BROMIDE (INCRUSE ELLIPTA) 7'S IH SCH (06:26)
[2018-01-31] MEDS ORDERED: TROUGH ORDER-PHARMACY XX NR (06:30)
[2018-01-31 06:33] LABS: BASOPHILS % (AUTO) 0 % (0-10); EOSINOPHILS % (AUTO) 0 % (0-10); HEMATOCRIT 26 % (40-54); HEMOGLOBIN 8.8 G/DL (13.3-17.7); LYMPHOCYTES # (AUTO) 0.5 X 10^3 (1.0-4.0); LYMPHOCYTES % (AUTO) 11 % (12-44); MEAN CORPUSCULAR HEMOGLOBIN 31 PG (25-34); MEAN CORPUSCULAR HGB CONC 34 G/DL (32-36); MEAN CORPUSCULAR VOLUME 93 FL (80-99); MEAN PLATELET VOLUME 8.3 FL (7.4-10.4); MONOCYTES # (AUTO) 0.6 X 10^3 (0.0-1.0); MONOCYTES % (AUTO) 13 % (0-12); NEUTROPHILS # (AUTO) 3.7 X 10^3 (1.8-7.8); NEUTROPHILS % (AUTO) 76 % (42-75); PLATELET COUNT 207 10^3/uL (130-400); RED BLOOD COUNT 2.81 10^6/uL (4.35-5.85); RED CELL DISTRIBUTION WIDTH 14.2 % (10.0-14.5); WHITE BLOOD COUNT 4.8 10^3/uL (4.3-11.0)
[2018-01-31 06:56] LABS: ALANINE AMINOTRANSFERASE < 6 U/L (0-55); ALBUMIN 3.7 GM/DL (3.2-4.5); ALKALINE PHOSPHATASE 78 U/L (40-136); BILIRUBIN,TOTAL 0.2 MG/DL (0.1-1.0); BUN/CREATININE RATIO 13; CALCIUM 9.4 MG/DL (8.5-10.1); CARBON DIOXIDE 26 MMOL/L (21-32); CHLORIDE 97 MMOL/L (98-107); GFR ESTIMATED > 60; GLUCOSE 127 MG/DL (70-105); POTASSIUM 4.1 MMOL/L (3.6-5.0); SODIUM 133 MMOL/L (135-145); TOTAL PROTEIN 6.9 GM/DL (6.4-8.2)
[2018-01-31 07:02] LABS: VANCOMYCIN,TROUGH 12.4 UG/ML (10.0-20.0)
[2018-01-31] MEDS: VANCOMYCIN INJECTION 1,500 MG in NS IV 500 ML 500 ML IV SCH (07:08)
--- NOTE | 2018-01-31 07:28 | Diagnostic Imaging Report ---
INDICATION: Lower respiratory infection Portable chest 2:35 AM Right IJ Port-A-Cath tip projects over the SVC. There is small residual right basilar atelectasis. This is considerably improved from 01/30/2013. There is no effusion or pneumothorax. IMPRESSION: Improving right basilar infiltrate Dictated by: Dictated on workstation # [id number]
[2018-01-31 08:00] VITALS: BP 160/73
[2018-01-31] MEDS: amLODIPine 5 MG (NORVASC) TAB PO SCH (08:23)
[2018-01-31] MEDS: ARTIFICAL TEARS 0.4 ML UNIT DOSE (REFRESH PLUS) OD SCH ×3 (08:23→20:40)
[2018-01-31] MEDS: PHENYTOIN 100 MG (DILANTIN) CAP PO SCH ×3 (08:23→23:24)
[2018-01-31] MEDS: GABAPENTIN 600 MG (NEURONTIN) TAB PO SCH ×2 (08:23→15:37)
[2018-01-31] MEDS: SILVER SULFADIAZINE 50 GM CREAM TOP SCH ×2 (08:24→20:40)
[2018-01-31 12:00] VITALS: BP 163/79
--- NOTE | 2018-01-31 12:07 | Physical Therapy Daily Note ---
PT Daily Note-Current Subjective Pt in bed, agreeable. Pt refuses gait belt; "I will not use that gait belt. I don't need someone hanging onto me. I've always had trouble with my balance, it' s because of that foot from when I had polio". Agreeable to ambulate within the room this date. Mental Status Patient Orientation: Person, Place, Time, Situation Attachments: Oxygen Transfers Functional [place] Measure 0=Not Assessed/NA 4=Minimal Assistance 1=Total Assistance 5=Supervision or Setup 2=Maximal Assistance 6=Modified [place] 3=Moderate Assistance 7=Complete IndependenceIRFPAI Quality Coding Scale 6 Independent with activity with or without an assistive device 5 Patient requires set up or clean up by helper. Patient completes activity by themselves 4 Supervision or touching assist (CGA). [place] provide cues , steadying assist 3 The helper provides less than half the effort to complete the activity 2 The helper provides more than half the effort to complete the activity 1 Dependent. The helper does all the effort to complete an activity 7 Patient refused to complete or attempt activity 9 The patient did not perform the activity before the current illness or injury 88 Not attempted due to Medical conditions or safety concerns Transfers (B, C, W/C) (FIM): 4 Supine to/from Sit: 6 Sit to/from Stand: 4 Weight Bearing Right Lower Extremity: Right Full Weight Bearing Left Lower Extremity: Left Full Weight Bearing Gait Training Gait (FIM): 2 Distance (FIM): 1=up to 49 ft Distance: 40 Gait Level of Assist: 4 Gait Persons Needed: 1 Gait Assistive Device: FWW Pt initially with LOB upon standing but recovered with CGA. Mildly unsteady with gait but no brennan LOB. Mildly impulsive. Treatments Ambulation within room with FWW. Assist to manage O2 tubing. Returned to bed with all needs met. Assessment Current Status: Good Progress Pt tolerated well. Elevated fall risk due to impulsive decisions, decreased balance. PT Intermediate Goals Intermediate Goals PT Intermediate Goals Time Frame: Feb 06, 2018 Transfers (B,C,W/C) (FIM): 5 Gait (FIM): 2 Gait distance (FIM): 5=794-45 ft Distance: 50' Gait Level of Assist: 5 PT Plan Problem List Problem List: Activity Tolerance, Functional Strength, Safety, Balance, Gait, Transfer Treatment/Plan Treatment Plan: Continue Plan of Care Treatment Plan: Bed Mobility, Education, Functional Strength, Gait, Safety, Therapeutic Exercise, Transfers Treatment Duration: Feb 06, 2018 Frequency: 6 times per week Estimated Hrs Per Day: .25 hour per day Patient and/or Family Agrees t: Yes Safety Risks/Education Patient Education: Safety Issues Teaching Recipient: Patient Teaching Methods: Discussion Response to Teaching: Verbalize Understanding, Reinforcement Needed Time/GCodes Time In: 1114 Time Out: 1129 Total Billed Treatment Time: 15 Total Billed Treatment 1, FA x 15' G Codes Necessary: MAYLIN Anne DPT Jan 31, 2018 12:07
--- NOTE | 2018-01-31 12:23 | Progress Note-Hospitalist ---
Subjective HPI/CC On Admission Date Seen by Provider: Jan 31, 2018 Time Seen by Provider: 08:30 Subjective/Events-last exam Patient feeling better this morning currently BiPAP is off maintaining saturations greater than 94 percent on Vapotherm. She reports she was able to get some sleep last night with decreasing cough still productive of greenish sputum. Focused Exam Lactate Level 01/28/18 21:25: Lactic Acid Level 0.94 Objective Exam Vital Signs Vital Signs Date Time Temp Pulse Resp B/P (MAP) Pulse Ox O2 Delivery O2 Flow Rate FiO2 01/31/18 10:50 96 Nasal Cannula 3.00 01/31/18 08:00 97.3 72 18 160/73 (102) 01/30/18 12:05 35 Capillary Refill : Less Than 3 SecondsLess Than 3 Seconds General Appearance: No Apparent Distress, Chronically ill Respiratory: Other (Chest surprisingly is clear anteriorly she does have diminished breath sounds posteriorly with scattered rhonchi and no wheezing appreciated currently a few rales in both bases.) Cardiovascular: Regular Rate, Rhythm, No Edema, No Gallop, No JVD, No Murmur, Normal Peripheral Pulses Gastrointestinal: Normal Bowel Sounds, No Organomegaly, No Pulsatile Mass, Non Tender, Soft Extremity: Other (2+ pedal and pretibial edema bilaterally no calf pain or swelling other than diffuse edema.) Results/Procedures Lab Laboratory Tests 01/31/18 06:27 Patient resulted labs reviewed. Assessment/Plan Assessment and Plan Assess & Plan/Chief Complaint Acute on chronic respiratory failure -BiPAP patient encouraged to use BiPAP at night currently doing well on Vapotherm -will trial pt on Vapotherm -Change SVNs to Q4hrs and add Solumedrol RLL pneumonia with hypoxia -Add vancomycin to Cefepime -repeat influenza swab will also had sputum culture. COPDAE -SVNs, advair Nonsmall cell lung cancer with mets to bone Critical Care Critical Care: Critically Ill Patient Clinical Quality Measures DVT/VTE Risk/Contraindication: Risk Factor Score Per Nursin RFS Level Per Nursing on Admit: 4+=Very High JIMBO SÁNCHEZ MD Jan 31, 2018 12:23
[2018-01-31] MEDS: MELOXICAM 7.5 MG (MOBIC) TABLET PO SCH (15:37)
[2018-01-31 15:40] VITALS: BP 152/75
[2018-01-31] MEDS: ENOXAPARIN 40 MG/0.4 ML (LOVENOX) SYR SC SCH (17:17)
[2018-01-31] MEDS: VANCOMYCIN 1,750 MG/NS 500 ML IVPB IV SCH ×2 (18:02)
[2018-01-31 19:20] VITALS: BP 158/74
[2018-01-31] MEDS: GABAPENTIN 300 MG (NEURONTIN) CAP PO SCH (23:25)
[2018-02-01] VITALS: BP 158/72
[2018-02-01] MEDS: methylPREDNISolone 40 MG/ML (Solu-MEDROL) VIAL IV SCH ×2 (01:08→05:16)
[2018-02-01] MEDS: RT-ALBUTEROL/IPRATROPIUM 3 ML (DUONEB) VIAL INH SCH ×6 (01:16→22:54)
[2018-02-01] MEDS: ATORVASTATIN 10 MG (LIPITOR) TABLET PO SCH (03:01)
[2018-02-01] MEDS: lamoTRIgine 25 MG (LaMICtal) TAB PO SCH ×2 (03:02→15:43)
[2018-02-01] MEDS: lisINopril 20 MG (PRINIVIL) TABLET PO SCH (03:02)
[2018-02-01] MEDS: carBAMazepine 200 MG (TEGretol) TAB PO SCH ×4 (03:02→23:12)
[2018-02-01 04:00] VITALS: BP 145/88
[2018-02-01] MEDS: CEFEPIME 2 GM/NS 50 ML IVPB IV SCH ×4 (04:47→17:10)
[2018-02-01] MEDS: VANCOMYCIN 1,750 MG/NS 500 ML IVPB IV SCH ×4 (06:16→18:02)
[2018-02-01] MEDS: PANTOPRAZOLE 40 MG (PROTONIX) TAB PO SCH (06:16)
[2018-02-01] MEDS: UMECLIDINIUM BROMIDE (INCRUSE ELLIPTA) 7'S IH SCH (06:23)
[2018-02-01] MEDS: RT-ADVAIR HFA 115/21 MCG PER PUFF IH SCH ×2 (06:23→18:36)
[2018-02-01 08:00] VITALS: BP 164/81
[2018-02-01] MEDS: amLODIPine 5 MG (NORVASC) TAB PO SCH (08:47)
[2018-02-01] MEDS: GABAPENTIN 600 MG (NEURONTIN) TAB PO SCH ×2 (08:47→15:43)
[2018-02-01] MEDS: PHENYTOIN 100 MG (DILANTIN) CAP PO SCH ×3 (08:47→23:12)
[2018-02-01] MEDS: rOPINIRole 0.25 MG (REQUIP) TAB PO SCH ×3 (08:47→23:12)
[2018-02-01] MEDS: ARTIFICAL TEARS 0.4 ML UNIT DOSE (REFRESH PLUS) OD SCH ×3 (08:48→20:47)
[2018-02-01] MEDS: SILVER SULFADIAZINE 50 GM CREAM TOP SCH ×2 (08:49→20:47)
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
[2018-02-01 12:00] VITALS: BP 175/89
[2018-02-01] MEDS: MELOXICAM 7.5 MG (MOBIC) TABLET PO SCH (15:43)
[2018-02-01 15:50] VITALS: BP 148/73
[2018-02-01] MEDS: ENOXAPARIN 40 MG/0.4 ML (LOVENOX) SYR SC SCH (18:08)
[2018-02-01 19:10] VITALS: BP 125/58
[2018-02-01] MEDS: GABAPENTIN 300 MG (NEURONTIN) CAP PO SCH (23:12)
[2018-02-02] VITALS: BP 147/67
[2018-02-02] MEDS: RT-ALBUTEROL/IPRATROPIUM 3 ML (DUONEB) VIAL INH SCH ×6 (02:56→21:56)
[2018-02-02] MEDS: ATORVASTATIN 10 MG (LIPITOR) TABLET PO SCH (03:03)
[2018-02-02] MEDS: lamoTRIgine 25 MG (LaMICtal) TAB PO SCH ×2 (03:04→14:26)
[2018-02-02] MEDS: carBAMazepine 200 MG (TEGretol) TAB PO SCH ×4 (03:04→23:16)
[2018-02-02] MEDS: lisINopril 20 MG (PRINIVIL) TABLET PO SCH (03:04)
[2018-02-02 04:00] VITALS: BP 142/66
[2018-02-02] MEDS ORDERED: TROUGH ORDER-PHARMACY XX NR (06:30)
[2018-02-02] MEDS: PANTOPRAZOLE 40 MG (PROTONIX) TAB PO SCH (06:32)
[2018-02-02] MEDS: predniSONE 20 MG TAB PO SCH (06:32)
[2018-02-02] MEDS: RT-ADVAIR HFA 115/21 MCG PER PUFF IH SCH ×2 (06:59→18:50)
[2018-02-02] MEDS: UMECLIDINIUM BROMIDE (INCRUSE ELLIPTA) 7'S IH SCH (06:59)
--- NOTE | 2018-02-02 07:46 | Pulmonary Progress Note ---
Subjective Time Seen by a Provider: 10:53 Subjective/Events-last exam No complications noted. Sepsis Event Evaluation Height, Weight, BMI Height: 6'0.00" Weight: 176lbs. 0.0oz. 79.081665xm; 23.9 BMI Method:Stated Exam Exam Vital Signs Date Time Temp Pulse Resp B/P (MAP) Pulse Ox O2 Delivery O2 Flow Rate FiO2 02/02/18 06:59 92 Nasal Cannula 3.00 02/02/18 04:00 96.8 70 18 142/66 (91) 98 Nasal Cannula 3.00 02/02/18 02:56 92 Nasal Cannula 3.00 02/02/18 01:00 65 02/02/18 00:00 97.1 68 18 147/67 (93) 97 Nasal Cannula 3.00 02/01/18 22:54 94 Nasal Cannula 3.00 02/01/18 19:30 96 Nasal Cannula 3.00 02/01/18 19:10 98.4 80 16 125/58 (80) 96 Nasal Cannula 3.00 02/01/18 19:00 77 02/01/18 18:36 94 Nasal Cannula 3.00 02/01/18 15:50 98.6 69 16 148/73 (98) 96 Nasal Cannula 3.00 02/01/18 14:25 94 Nasal Cannula 3.00 02/01/18 13:00 67 02/01/18 12:00 97.6 69 20 175/89 (117) 97 Nasal Cannula 3.00 02/01/18 09:23 94 Nasal Cannula 3.00 02/01/18 08:00 98.4 81 20 164/81 (108) 92 Nasal Cannula 3.00 02/01/18 08:00 Nasal Cannula 3.00 I & O 02/02/18 07:00 Intake Total 3328.75 ml Output Total 2740 ml Balance 588.75 ml Height & Weight Height: 6'0.00" Weight: 176lbs. 0.0oz. 79.851464jc; 23.9 BMI Method:Stated General Appearance: No Apparent Distress, Chronically ill HEENT: Normal ENT Inspection Neck: Full Range of Motion, Normal Inspection Respiratory: No Accessory Muscle Use, No Respiratory Distress, Other (Few fine rales in the right lower lobe there are diminished breath sounds throughout without wheezing or rhonchi.) Cardiovascular: Regular Rate, Rhythm, No Edema, No Gallop, No JVD, Normal Peripheral Pulses, Systolic Murmur (2-3/6 heard best over the aortic outflow tract areas.) Capillary Refill: Less Than 3 Seconds Gastrointestinal: non tender, soft Extremity: Other (2+ pedal and pretibial edema bilaterally no calf pain or swelling other than diffuse edema.) Neurologic/Psychiatric: Alert, Oriented x3, No Motor/Sensory Deficits, Normal Mood/Affect Skin: Normal Color, Warm/Dry Assessment/Plan Assessment/Plan Acute on chronic respiratory failure -Change SVNs to Q4hrs -Prednisone RLL pneumonia with hypoxia -Improving will change to PO omnicef -repeat influenza swab COPDAE -SVNs, advair Nonsmall cell lung cancer with mets to bone RANI PACHECO DO Feb 02, 2018 07:46
--- NOTE | 2018-02-02 07:55 | Progress Note (SOAP) ---
Subjective Time Seen by a Provider: 07:53 Subjective/Events-last exam Patient improving. On nasal oxygen. Plan to discharge tomorrow. Objective Exam Vital Signs Date Time Temp Pulse Resp B/P (MAP) Pulse Ox O2 Delivery O2 Flow Rate FiO2 02/02/18 06:59 92 Nasal Cannula 3.00 02/02/18 04:00 96.8 70 18 142/66 (91) 98 Nasal Cannula 3.00 02/02/18 02:56 92 Nasal Cannula 3.00 02/02/18 01:00 65 02/02/18 00:00 97.1 68 18 147/67 (93) 97 Nasal Cannula 3.00 02/01/18 22:54 94 Nasal Cannula 3.00 02/01/18 19:30 96 Nasal Cannula 3.00 02/01/18 19:10 98.4 80 16 125/58 (80) 96 Nasal Cannula 3.00 02/01/18 19:00 77 02/01/18 18:36 94 Nasal Cannula 3.00 02/01/18 15:50 98.6 69 16 148/73 (98) 96 Nasal Cannula 3.00 02/01/18 14:25 94 Nasal Cannula 3.00 02/01/18 13:00 67 02/01/18 12:00 97.6 69 20 175/89 (117) 97 Nasal Cannula 3.00 02/01/18 09:23 94 Nasal Cannula 3.00 02/01/18 08:00 98.4 81 20 164/81 (108) 92 Nasal Cannula 3.00 02/01/18 08:00 Nasal Cannula 3.00 I & O 02/02/18 07:00 Intake Total 3328.75 ml Output Total 2740 ml Balance 588.75 ml Capillary Refill : Less Than 3 SecondsLess Than 3 Seconds General Appearance: No Apparent Distress, WD/WN HEENT: Normal ENT Inspection Neck: Full Range of Motion, Normal Inspection Respiratory: No Accessory Muscle Use, No Respiratory Distress, Decreased Breath Sounds Cardiovascular: Regular Rate, Rhythm, No Murmur Gastrointestinal: non tender Results Lab Laboratory Tests 02/02/18 06:30: Vancomycin Level Trough 15.3 Microbiology 01/28/18 Blood Culture - Preliminary, Resulted No growth 01/29/18 Influenza Types A,B Antigen (VY) - Final, Complete Assessment/Plan Assessment/Plan Assess & Plan/Chief Complaint Right lower lung pneumonia. Short of breath. Lung cancer. Chemotherapy last . History of COPD. History of tobaccoism. . 01/28/18. Right lower lobe pneumonia. Shortness of breath. Lung cancer. Chemotherapy last . History of tobaccoism. History of COPD. Patient will be discharged tomorrow. Patient has some shortness of breath with exertion yesterday area Chest x-ray not done yet. . 01/29/18. Right lower lobe pneumonia progressing. Acute and chronic respiratory failure. Lung cancer. Chemotherapy last . History of tobaccoism. History of COPD. Hypomagnesemia. Chest x-ray right lower lobe progressing. . 01/30/18. Right lower lobe pneumonia. Acute and chronic respiratory failure. Lung cancer. History of COPD. Hyponatremia. Anemia. Patient improving and doing better. . 02/02/18. Right lower lobe pneumonia with hypoxia. Acute and chronic respiratory failure. Lung cancer with metastasis to bone. COPD area History of tobaccoism. Patient on chemotherapy Clinical Quality Measures Admission Status Admission Dx Echo lobe pneumonia. Fever. Lung cancer. Nausea and vomiting. History of tobaccoism stop last January DVT/VTE Risk/Contraindication: Risk Factor Score Per Nursin RFS Level Per Nursing on Admit: 4+=Very High AMANDEEP GENAO DO Feb 02, 2018 07:55
[2018-02-02 08:00] VITALS: BP 136/70
[2018-02-02] MEDS: ARTIFICAL TEARS 0.4 ML UNIT DOSE (REFRESH PLUS) OD SCH ×3 (08:11→20:41)
[2018-02-02] MEDS: rOPINIRole 0.25 MG (REQUIP) TAB PO SCH ×3 (08:11→23:16)
[2018-02-02] MEDS: CEFDINIR 300 MG (OMNICEF) CAP PO SCH ×2 (08:11→20:41)
[2018-02-02] MEDS: amLODIPine 5 MG (NORVASC) TAB PO SCH (08:11)
[2018-02-02] MEDS: GABAPENTIN 600 MG (NEURONTIN) TAB PO SCH ×2 (08:11→14:27)
[2018-02-02] MEDS: PHENYTOIN 100 MG (DILANTIN) CAP PO SCH ×3 (08:11→23:16)
[2018-02-02] MEDS: SILVER SULFADIAZINE 50 GM CREAM TOP SCH ×2 (08:13→20:42)
--- NOTE | 2018-02-02 08:55 | Diagnostic Imaging Report ---
EXAMINATION: CHEST (PA AND LATERAL) CLINICAL INDICATION: 62-year-old male, evaluation for pneumonia. Shortness of breath. COMPARISON: January 31, 2018. FINDINGS: There is a right-sided port catheter with tip overlying the lower SVC. Stable overall appearance of the cardiomediastinal silhouette. There is no identified pneumothorax. There is no sizable pleural effusion. There is multifocal somewhat streaky opacification within the mid and lower lung zones bilaterally which appears mildly increased in the right midlung and otherwise fairly similar. There are end-stage bilateral glenohumeral arthritic changes. IMPRESSION: 1. Nonspecific mid and lower lung zone consolidation bilaterally which is mildly increased in the right midlung since comparison exam. Dictated by: Dictated on workstation # [id number]
[2018-02-02 09:01] LABS: BASOPHILS % (AUTO) 0 % (0-10); EOSINOPHILS % (AUTO) 0 % (0-10); HEMATOCRIT 28 % (40-54); HEMOGLOBIN 9.1 G/DL (13.3-17.7); LYMPHOCYTES # (AUTO) 0.5 X 10^3 (1.0-4.0); LYMPHOCYTES % (AUTO) 6 % (12-44); MEAN CORPUSCULAR HEMOGLOBIN 31 PG (25-34); MEAN CORPUSCULAR HGB CONC 33 G/DL (32-36); MEAN CORPUSCULAR VOLUME 95 FL (80-99); MEAN PLATELET VOLUME 8.5 FL (7.4-10.4); MONOCYTES # (AUTO) 0.7 X 10^3 (0.0-1.0); MONOCYTES % (AUTO) 8 % (0-12); NEUTROPHILS # (AUTO) 7.1 X 10^3 (1.8-7.8); NEUTROPHILS % (AUTO) 86 % (42-75); PLATELET COUNT 254 10^3/uL (130-400); RED BLOOD COUNT 2.96 10^6/uL (4.35-5.85); RED CELL DISTRIBUTION WIDTH 14.5 % (10.0-14.5); WHITE BLOOD COUNT 8.3 10^3/uL (4.3-11.0)
[2018-02-02 09:17] LABS: BUN/CREATININE RATIO 11; CALCIUM 8.9 MG/DL (8.5-10.1); CARBON DIOXIDE 28 MMOL/L (21-32); CHLORIDE 99 MMOL/L (98-107); CREATININE SERUM 0.71 MG/DL (0.60-1.30); GFR ESTIMATED > 60; GLUCOSE 162 MG/DL (70-105); POTASSIUM 3.8 MMOL/L (3.6-5.0); SODIUM 137 MMOL/L (135-145)
--- NOTE | 2018-02-02 09:33 | Physical Therapy Daily Note ---
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 Pain Numeric Pain Scale: 0-No Pain Location: No Pain Reported Mental Status Patient Orientation: Normal For Age Attachments: Oxygen Transfers Functional [place] Measure 0=Not Assessed/NA 4=Minimal Assistance 1=Total Assistance 5=Supervision or Setup 2=Maximal Assistance 6=Modified [place] 3=Moderate Assistance 7=Complete IndependenceIRFPAI Quality Coding Scale 6 Independent with activity with or without an assistive device 5 Patient requires set up or clean up by helper. Patient completes activity by themselves 4 Supervision or touching assist (CGA). [place] provide cues , steadying assist 3 The helper provides less than half the effort to complete the activity 2 The helper provides more than half the effort to complete the activity 1 Dependent. The helper does all the effort to complete an activity 7 Patient refused to complete or attempt activity 9 The patient did not perform the activity before the current illness or injury 88 Not attempted due to Medical conditions or safety concerns Transfers (B, C, W/C) (FIM): 6 Supine to/from Sit: 6 Sit to/from Stand: 6 Weight Bearing Right Lower Extremity: Right Full Weight Bearing Left Lower Extremity: Left Full Weight Bearing Gait Training Gait (FIM): 5 Distance (FIM): 3=150 ft Distance: 150' Gait Level of Assist: 5 Gait Persons Needed: 1 Exercises Seated Therapy Exercises: Hip flexion Seated Reps: 20 Assessment Pt was able to ambulate for 150ft with oxygen and required SBA. Pt did not use walker and refused gait belt during ambulation. Patient did show fatigue towards the end of walk but did not need prolonged rest to catch his breath when he returned to his room. Pt then performed marching on edge of bed before laying down. PT [facility] Hand Goals [facility] Goals PT Vise Hand Goals Time Frame: Feb 06, 2018 Transfers (B,C,W/C) (FIM): 5 Gait (FIM): 2 Gait distance (FIM): 9=966-42 ft Distance: 50' Gait Level of Assist: 5 PT Plan Treatment/Plan Treatment Plan: Discontinue PT, goals met Treatment Plan: Bed Mobility, Education, Functional Strength, Gait, Safety, Therapeutic Exercise, Transfers Treatment Duration: Feb 06, 2018 Frequency: 6 times per week Estimated Hrs Per Day: .25 hour per day Patient and/or Family Agrees t: Yes Time/GCodes Time In: 822 Time Out: 833 Total Billed Treatment Time: 11 Total Billed Treatment 1 visit FA - 11' LAVON LAMAS PT Feb 02, 2018 09:33
[2018-02-02 12:00] VITALS: BP 148/64
[2018-02-02] MEDS: MELOXICAM 7.5 MG (MOBIC) TABLET PO SCH (14:26)
[2018-02-02 15:30] VITALS: BP 169/78
[2018-02-02] MEDS: ENOXAPARIN 40 MG/0.4 ML (LOVENOX) SYR SC SCH (17:49)
[2018-02-02 19:25] VITALS: BP 121/58
[2018-02-02] MEDS: GABAPENTIN 300 MG (NEURONTIN) CAP PO SCH (23:16)
[2018-02-03 00:20] VITALS: BP 123/58
[2018-02-03] MEDS: RT-ALBUTEROL/IPRATROPIUM 3 ML (DUONEB) VIAL INH SCH ×3 (02:09→10:08)
[2018-02-03] MEDS: lisINopril 20 MG (PRINIVIL) TABLET PO SCH (02:47)
[2018-02-03] MEDS: ATORVASTATIN 10 MG (LIPITOR) TABLET PO SCH (02:47)
[2018-02-03] MEDS: lamoTRIgine 25 MG (LaMICtal) TAB PO SCH (02:47)
[2018-02-03] MEDS: carBAMazepine 200 MG (TEGretol) TAB PO SCH ×2 (02:48→08:19)
[2018-02-03 04:07] VITALS: BP 121/60
[2018-02-03] MEDS: predniSONE 20 MG TAB PO SCH (06:29)
[2018-02-03] MEDS: PANTOPRAZOLE 40 MG (PROTONIX) TAB PO SCH (06:29)
[2018-02-03] MEDS: RT-ADVAIR HFA 115/21 MCG PER PUFF IH SCH (06:42)
[2018-02-03] MEDS: UMECLIDINIUM BROMIDE (INCRUSE ELLIPTA) 7'S IH SCH (06:43)
[2018-02-03 07:14] LABS: HEMOGLOBIN 9.2 G/DL (13.3-17.7); MEAN PLATELET VOLUME 8.5 FL (7.4-10.4); RED BLOOD COUNT 2.99 10^6/uL (4.35-5.85); RED CELL DISTRIBUTION WIDTH 14.5 % (10.0-14.5); WHITE BLOOD COUNT 6.2 10^3/uL (4.3-11.0)
[2018-02-03 07:23] LABS: BUN/CREATININE RATIO 12; CALCIUM 8.9 MG/DL (8.5-10.1); CARBON DIOXIDE 29 MMOL/L (21-32); CHLORIDE 98 MMOL/L (98-107); CREATININE SERUM 0.66 MG/DL (0.60-1.30); GFR ESTIMATED > 60; GLUCOSE 119 MG/DL (70-105); POTASSIUM 3.5 MMOL/L (3.6-5.0); SODIUM 139 MMOL/L (135-145)
--- NOTE | 2018-02-03 07:24 | Pulmonary Progress Note ---
Sepsis Event Evaluation Height, Weight, BMI Height: 6'0.00" Weight: 176lbs. 0.0oz. 79.610003qj; 23.9 BMI Method:Stated Exam Exam Vital Signs Date Time Temp Pulse Resp B/P (MAP) Pulse Ox O2 Delivery O2 Flow Rate FiO2 02/03/18 06:40 94 Nasal Cannula 3.00 02/03/18 04:07 98.1 73 18 121/60 (80) 96 Nasal Cannula 3.00 02/03/18 02:09 95 Nasal Cannula 3.00 02/03/18 01:00 71 02/03/18 00:20 97.4 76 18 123/58 (79) 97 Nasal Cannula 3.00 02/02/18 21:56 92 Nasal Cannula 3.00 02/02/18 20:40 95 Nasal Cannula 3.00 02/02/18 19:25 97.2 81 16 121/58 (79) 96 Nasal Cannula 3.00 02/02/18 19:00 90 02/02/18 18:50 95 Nasal Cannula 3.00 02/02/18 15:30 97.9 74 16 169/78 (108) 93 Nasal Cannula 3.00 02/02/18 14:50 92 Nasal Cannula 3.00 02/02/18 13:00 75 02/02/18 12:00 97.4 72 22 148/64 (92) 97 Nasal Cannula 3.00 02/02/18 11:58 95 Nasal Cannula 3.00 02/02/18 08:00 95 Nasal Cannula 3.00 02/02/18 08:00 97.2 86 20 136/70 (92) 93 Nasal Cannula 3.00 I & O 02/03/18 07:00 Intake Total 2300 ml Balance 2300 ml Height & Weight Height: 6'0.00" Weight: 176lbs. 0.0oz. 79.544605ag; 23.9 BMI Method:Stated General Appearance: No Apparent Distress, Chronically ill HEENT: Normal ENT Inspection Neck: Full Range of Motion, Normal Inspection Respiratory: No Accessory Muscle Use, No Respiratory Distress, Other (Few fine rales in the right lower lobe there are diminished breath sounds throughout without wheezing or rhonchi.) Cardiovascular: Regular Rate, Rhythm, No Edema, No Gallop, No JVD, Normal Peripheral Pulses, Systolic Murmur (2-3/6 heard best over the aortic outflow tract areas.) Capillary Refill: Less Than 3 Seconds Gastrointestinal: non tender, soft Extremity: Other (2+ pedal and pretibial edema bilaterally no calf pain or swelling other than diffuse edema.) Neurologic/Psychiatric: Alert, Oriented x3, No Motor/Sensory Deficits, Normal Mood/Affect Skin: Normal Color, Warm/Dry Results Lab Laboratory Tests 02/02/18 08:55 Assessment/Plan Assessment/Plan Acute on chronic respiratory failure -Change SVNs to Q4hrs -Prednisone RLL pneumonia with hypoxia -Improving will change to PO omnicef COPDAE -SVNs, advair Nonsmall cell lung cancer with mets to bone RANI PACHECO DO Feb 03, 2018 07:24
[2018-02-03 08:00] VITALS: BP 128/70
--- NOTE | 2018-02-03 08:08 | Progress Note (SOAP) ---
Subjective Time Seen by a Provider: 08:05 Subjective/Events-last exam Patient feeling better today. Patient walking around without shortness of breath. Patient would like to go home today. Plan to discharge patient today. Waiting on chest x-ray report Objective Exam Vital Signs Date Time Temp Pulse Resp B/P (MAP) Pulse Ox O2 Delivery O2 Flow Rate FiO2 02/03/18 06:40 94 Nasal Cannula 3.00 02/03/18 04:07 98.1 73 18 121/60 (80) 96 Nasal Cannula 3.00 02/03/18 02:09 95 Nasal Cannula 3.00 02/03/18 01:00 71 02/03/18 00:20 97.4 76 18 123/58 (79) 97 Nasal Cannula 3.00 02/02/18 21:56 92 Nasal Cannula 3.00 02/02/18 20:40 95 Nasal Cannula 3.00 02/02/18 19:25 97.2 81 16 121/58 (79) 96 Nasal Cannula 3.00 02/02/18 19:00 90 02/02/18 18:50 95 Nasal Cannula 3.00 02/02/18 15:30 97.9 74 16 169/78 (108) 93 Nasal Cannula 3.00 02/02/18 14:50 92 Nasal Cannula 3.00 02/02/18 13:00 75 02/02/18 12:00 97.4 72 22 148/64 (92) 97 Nasal Cannula 3.00 02/02/18 11:58 95 Nasal Cannula 3.00 I & O 02/03/18 07:00 Intake Total 2300 ml Balance 2300 ml Capillary Refill : Less Than 3 SecondsLess Than 3 Seconds General Appearance: No Apparent Distress, WD/WN HEENT: Normal ENT Inspection Neck: Full Range of Motion, Non Tender Respiratory: No Accessory Muscle Use, No Respiratory Distress, Decreased Breath Sounds, Other (Congested and less) Cardiovascular: Regular Rate, Rhythm, No Murmur Gastrointestinal: non tender, soft Results Lab Laboratory Tests 02/02/18 08:55 02/03/18 06:59 Laboratory Tests 02/02/18 08:55: White Blood Count 8.3, Red Blood Count 2.96L, Hemoglobin 9.1L, Hematocrit 28L, Mean Corpuscular Volume 95, Mean Corpuscular Hemoglobin 31, Mean Corpuscular Hemoglobin Concent 33, Red Cell Distribution Width 14.5, Platelet Count 254, Mean Platelet Volume 8.5, Neutrophils (%) (Auto) 86H, Lymphocytes (%) (Auto) 6L , Monocytes (%) (Auto) 8, Eosinophils (%) (Auto) 0, Basophils (%) (Auto) 0, Neutrophils # (Auto) 7.1, Lymphocytes # (Auto) 0.5L, Monocytes # (Auto) 0.7, Eosinophils # (Auto) 0.0, Basophils # (Auto) 0.0, Sodium Level 137, Potassium Level 3.8, Chloride Level 99, Carbon Dioxide Level 28, Anion Gap 10, Blood Urea Nitrogen 8, Creatinine 0.71, Estimat Glomerular Filtration Rate > 60, BUN/ Creatinine Ratio 11, Glucose Level 162H, Calcium Level 8.9 02/02/18 23:29: Glucometer 130H 02/03/18 06:59: White Blood Count 6.2, Red Blood Count 2.99L, Hemoglobin 9.2L, Hematocrit 29L, Mean Corpuscular Volume 95, Mean Corpuscular Hemoglobin 31, Mean Corpuscular Hemoglobin Concent 32, Red Cell Distribution Width 14.5, Platelet Count 239, Mean Platelet Volume 8.5, Sodium Level 139, Potassium Level 3.5L, Chloride Level 98, Carbon Dioxide Level 29, Anion Gap 12, Blood Urea Nitrogen 8, Creatinine 0.66, Estimat Glomerular Filtration Rate > 60, BUN/Creatinine Ratio 12, Glucose Level 119H, Calcium Level 8.9 Microbiology 01/28/18 Blood Culture - Preliminary, Resulted No growth 01/29/18 Influenza Types A,B Antigen (VY) - Final, Complete Assessment/Plan Assessment/Plan Assess & Plan/Chief Complaint Right lower lung pneumonia. Short of breath. Lung cancer. Chemotherapy last . History of COPD. History of tobaccoism. . 01/28/18. Right lower lobe pneumonia. Shortness of breath. Lung cancer. Chemotherapy last . History of tobaccoism. History of COPD. Patient will be discharged tomorrow. Patient has some shortness of breath with exertion yesterday area Chest x-ray not done yet. . 01/29/18. Right lower lobe pneumonia progressing. Acute and chronic respiratory failure. Lung cancer. Chemotherapy last . History of tobaccoism. History of COPD. Hypomagnesemia. Chest x-ray right lower lobe progressing. . 01/30/18. Right lower lobe pneumonia. Acute and chronic respiratory failure. Lung cancer. History of COPD. Hyponatremia. Anemia. Patient improving and doing better. . 02/02/18. Right lower lobe pneumonia with hypoxia. Acute and chronic respiratory failure. Lung cancer with metastasis to bone. COPD area History of tobaccoism. Patient on chemotherapy. . 02/03/18. Pneumonia. Acute and chronic respiratory failure. Lung cancer with metastasis to bone. COPD history. History of tobaccoism. Patient on chemotherapy. Patient breathing better and doing better. Plan to discharge today Clinical Quality Measures Admission Status Admission Dx Echo lobe pneumonia. Fever. Lung cancer. Nausea and vomiting. History of tobaccoism stop last January DVT/VTE Risk/Contraindication: Risk Factor Score Per Nursin RFS Level Per Nursing on Admit: 4+=Very High AMANDEEP GENAO DO Feb 03, 2018 08:08
[2018-02-03] MEDS: GABAPENTIN 600 MG (NEURONTIN) TAB PO SCH (08:19)
[2018-02-03] MEDS: rOPINIRole 0.25 MG (REQUIP) TAB PO SCH (08:19)
[2018-02-03] MEDS: CEFDINIR 300 MG (OMNICEF) CAP PO SCH (08:19)
[2018-02-03] MEDS: PHENYTOIN 100 MG (DILANTIN) CAP PO SCH (08:19)
[2018-02-03] MEDS: amLODIPine 5 MG (NORVASC) TAB PO SCH (08:20)
[2018-02-03] MEDS: ARTIFICAL TEARS 0.4 ML UNIT DOSE (REFRESH PLUS) OD SCH (08:20)
[2018-02-03] MEDS: SILVER SULFADIAZINE 50 GM CREAM TOP SCH (08:20)
--- NOTE | 2018-02-03 10:11 | Diagnostic Imaging Report ---
INDICATION: Lower respiratory infection PA and lateral chest Right IJ Port-A-Cath tip projects over the SVC. There is some basilar atelectasis/fibrosis. There is no consolidating alveolar infiltrate. There is no effusion or pneumothorax. IMPRESSION: Basilar fibrosis/atelectasis. No change from previous day. Dictated by: Dictated on workstation # [id number]
[2018-02-03] MEDS ORDERED: PRED10TA22 PO (11:26)
[2018-02-03] MEDS ORDERED: CEFD300C3 PO (11:26)
[2018-02-03 13:15] VITALS: BP 128/70
== END 2018-02-03 13:15 | disposition home or self-care (01) | DRG 193 ==
LOC: EDUNIT# 12:36 → ER 12:38 → 4TH 15:30 → ICU 01-28 21:25 → 4TH 01-30 14:30
PROVIDERS: ADMIT Family Medicine; ATTEND Family Medicine
DX: J18.1 Lobar pneumonia, unspecified organism (principal); J44.0 Chronic obstructive pulmonary disease with (acute) lower respiratory infection; J96.20 Acute and chronic respiratory failure, unspecified whether with hypoxia or hypercapnia; J44.1 Chronic obstructive pulmonary disease with (acute) exacerbation; C34.90 Malignant neoplasm of unspecified part of unspecified bronchus or lung; C79.51 Secondary malignant neoplasm of bone; E87.1 Hypo-osmolality and hyponatremia; E83.42 Hypomagnesemia; D64.9 Anemia, unspecified; R53.1 Weakness; R11.2 Nausea with vomiting, unspecified; R29.6 Repeated falls; G40.909 Epilepsy, unspecified, not intractable, without status epilepticus; I10 Essential (primary) hypertension; G47.30 Sleep apnea, unspecified; J30.2 Other seasonal allergic rhinitis; E78.00 Pure hypercholesterolemia, unspecified; G14 Postpolio syndrome; M19.91 Primary osteoarthritis, unspecified site; T21.21XA Burn of second degree of chest wall, initial encounter; Z92.21 Personal history of antineoplastic chemotherapy; Z87.891 Personal history of nicotine dependence
CPT/HCPCS: 36415; 36600; 71045; 71046; 80048; 80053; 80185; 80202; 81000; 82805; 82962; 83605; 83735; 83880; 84100; 85007; 85025; 85027; 85610; 85730; 87040; 87804; 94640; 94660; 94760; 96361; 96365

== ENCOUNTER → 2018-02-10 | Outpatient (CLI) | payer MEDICAID ==
[~2018-02-10] MED LIST changes: +BARIUM SUSPENSION 2.1% (VANILLA SILQ) 450 ML PO ONE; +BROM5DRO3 OU; +CATHETER FLUSH 10 ML SYR IV PRN; +IOHEXOL 350 MG/ML 100 ML (OMNIPAQUE 350) VIAL IV ONE; +NS 250 ML (IVPB) BAG IV ONE; +RECEIVED CONTRAST (Hold Metformin) IV SCH
--- NOTE | 2018-02-10 13:12 | Diagnostic Imaging Report ---
PROCEDURE: CT chest with contrast, CT abdomen and pelvis with and without contrast. TECHNIQUE: Pre and post intravenous contrast axial imaging of the abdomen and pelvis and post contrast axial imaging of the chest were performed. INDICATION: Non-small cell lung cancer, followup. COMPARISON: Comparison is made with most recent CT chest from 12/04/[address] abdomen and pelvis from 10/30/2017. FINDINGS: CT chest: No axillary lymphadenopathy is identified. Right chest wall port is in place. No definite mediastinal or hilar lymphadenopathy is detected. No pericardial or pleural fluid is identified. Small spiculated mass in the posterior aspect of the left upper lobe appear stable at 7 mm. Centrilobular emphysematous changes in both lungs are again seen. Bi-basilar areas of infiltrate or atelectasis appears similar to prior exam. There may be slightly less consolidation in the posterior left lower lobe when compared with prior. No new infiltrate is seen. Bony structures appear stable. The cystic changes in the right humeral head and bilateral scapulas again noted. IMPRESSION: 1. Stable left upper lobe spiculated mass since exam two months earlier. No mediastinal or hilar lymphadenopathy seen. 2. Stable bibasilar pulmonary infiltrate/atelectasis since prior study. CT abdomen and pelvis: No discrete liver mass is identified. The gallbladder is surgically absent. No biliary duct dilatation is seen. The pancreas and spleen are unremarkable. No adrenal mass is identified. The right kidney remains unremarkable. Previously noted exophytic lesion arising from the upper pole of the left kidney appear stable at approximately 13 mm. Aorta and iliac vessels are heavily calcified but not aneurysmal. No central retroperitoneal or mesenteric lymphadenopathy is seen. Moderate stool load throughout the colon is again noted suggestive of constipation. Small bowel loops are normal caliber. There is no ascites. No definite iliac or inguinal lymphadenopathy is seen. The bladder is unremarkable. The bony structures are stable. IMPRESSION: Stable CT abdomen and pelvis when compared with exam from 10/30/2017. No definite findings to suggest abdominal or pelvic metastatic disease are seen. Dictated by: Dictated on workstation # [id number]
--- NOTE | 2018-02-10 16:25 | Diagnostic Imaging Report ---
Indication: Lung cancer Whole body bone scan 25.4 mCi of technetium 99m MDP was given intravenously. Whole body bone scan was obtained after an appropriate delay. There is increased uptake in the medial aspect of the right knee consistent with degenerative change. There is also slight increased uptake in the left femoral neck. Both of these were present on a prior study from 10/30/2017. There is activity in both kidneys. There is activity in the bladder. There is increased activity in the left ankle that is considerably less than previous. Impression: There continues to be a focus of increased activity in the left femoral neck that is unchanged in appearance since 10/30/2017. The body bone scan is stable other than some improvement in the activity in the left ankle. Dictated by: Dictated on workstation # [id number]
== END ==
LOC: CARD 12:15
PROVIDERS: ATTEND Nurse Practitioner Adult Health
DX: C34.12 Malignant neoplasm of upper lobe, left bronchus or lung (principal); C79.51 Secondary malignant neoplasm of bone
CPT/HCPCS: 71260; 74178; 78306

== ENCOUNTER 2018-03-09 10:27 | Observation (INO) | payer MEDICAID ==
[~2018-03-09] VITALS: Ht 182.9 cm; Wt 79.0 kg
[~2018-03-09 10:27] MED LIST changes: -BARIUM SUSPENSION 2.1% (VANILLA SILQ) 450 ML PO ONE; -CATHETER FLUSH 10 ML SYR IV PRN; -IOHEXOL 350 MG/ML 100 ML (OMNIPAQUE 350) VIAL IV ONE; -NS 250 ML (IVPB) BAG IV ONE; -RECEIVED CONTRAST (Hold Metformin) IV SCH
--- NOTE | 2018-03-09 11:08 | ED General ---
General Stated Complaint: VOMITTING,DIZZINESS Source of Information: Patient Exam Limitations: No Limitations History of Present Illness Date Seen by Provider: Mar 09, 2018 Time Seen by Provider: 11:06 Initial Comments To ER by with reports of 2-3 days of nausea vomiting generalized weakness. He was nearly unable to make it to the truck this morning because of his weakness. Weakness is global and not unilateral or focal. He does have COPD and wears oxygen at 3 L [id number] at home. He denies any increased cough or shortness of breath and states that he feels like his breathing status is "good ". He did fall a couple of times and complains of some subsequent neck pain and did hit his head but denies headache. No other complaints of pain or injury. Timing/Duration: 1-2 Days Severity: Moderate Associated Systoms: Nausea/Vomiting, Shortness of Air (chronic and unchanged), Weakness Allergies and Home Medications Allergies Coded Allergies: aspirin (Unverified Allergy, Mild, DOES NOT WORK WELL W/ OTHER MEDS, ) ibuprofen (Unverified Allergy, Mild, 08/05/17) Home Medications Albuterol Sulfate 2.5 Mg/3 Ml Vial.neb, 2.5 MG NEB 5XD PRN for SHORTNESS OF BREATH, (Reported) Albuterol Sulfate 1 Puff Puff, 2 PUFF IH Q6H PRN for SHORTNESS OF BREATH, ( Reported) 1 PUFF = 90 MCG Amlodipine Besylate 5 Mg Tablet, 5 MG PO 0800, (Reported) Atorvastatin Calcium 10 Mg Tablet, 10 MG PO 0300, (Reported) Bromfenac Sodium 5 Ml Drops, 1 DROP OU TID, (Reported) Carbamazepine 200 Mg Tablet, 200 MG PO 0800,2300,0300, (Reported) Carbamazepine 200 Mg Tablet, 400 MG PO 1500, (Reported) TAKES 2 (200 MG) TABLETS Cefdinir 300 Mg Capsule, 300 MG PO BID Prescribed by: BAN CARNES on 02/03/18 1126 Fluticasone/Salmeterol 1 Each Blst.w.dev, 1 PUFF INH BID, (Reported) Gabapentin 300 Mg Capsule, 300 MG PO 2300, (Reported) Gabapentin 600 Mg Tablet, 600 MG PO 0800,1500, (Reported) Hydrocodone/Acetaminophen 1 Each Tablet, 1 TAB PO Q6H PRN for PAIN-MODERATE, ( Reported) Lamotrigine 100 Mg Tablet, 100 MG PO 1500,2300, (Reported) Lamotrigine 25 Mg Tablet, 25 MG PO 1500,0300, (Reported) Lisinopril 20 Mg Tablet, 20 MG PO 0300, (Reported) Meloxicam 15 Mg Tablet, 15 MG PO 1500, (Reported) Pantoprazole Sodium 40 Mg Tablet.dr, 40 MG PO DAILY PRN for HEARTBURN, (Reported ) Phenytoin Sodium Extended 100 Mg Capsule, 200 MG PO 0800,1500, (Reported) TAKES 2 (100 MG) CAPSULES Phenytoin Sodium Extended 100 Mg Capsule, 100 MG PO 2300, (Reported) Prednisone 10 Mg Tab.ds.pk, 10 MG PO DAILY Take 6 tabs(60mg)daily,decrease by 1 tab(10MG)daily. Prescribed by: BAN CARNES on 02/03/18 1126 Ropinirole HCl 0.25 Mg Tablet, 0.25 MG PO 0800,1500,2300, (Reported) Tiotropium [place] 1 Inh Aerp, 1 CAP IH DAILY, (Reported) Patient Home Medication List Home Medication List Reviewed: Yes Review of Systems Review of Systems Constitutional: see HPI; No chills, No fever; weakness EENTM: see HPI Respiratory: see HPI, dyspnea on exertion (chronic and unchanged) Cardiovascular: No chest pain, No syncope Genitourinary: no symptoms reported Musculoskeletal: no symptoms reported Skin: no symptoms reported Psychiatric/Neurological: No Symptoms Reported Hematologic/Lymphatic: No Symptoms Reported Past Dticlue-Vvvyxv-Pysspy Hx Patient Social History Type Used: Cigarettes Former Smoker, Quit: Feb 12, 2017 2nd Hand Smoke Exposure: No Recent Foreign Travel: No Contact w/Someone Who Travel: No Recent Hopitalizations: Yes Immunizations Up To Date Tetanus Booster (TDap): Unknown PED Vaccines UTD: Yes Seasonal Allergies Seasonal Allergies: Yes Past Medical History Surgeries: Yes Gallbladder Respiratory: Yes (METASTATIC LUNG CANCER DX 05/2017/COPD) Asthma, Pneumonia, Sleep Apnea, COPD Currently Using CPAP: No Currently Using BIPAP: Yes Cardiac: Yes High Cholesterol, Hypertension Neurological: Yes (post polio syndrome with left-sided deficits) Seizure Disorder Reproductive Disorders: No Sexually Transmitted Disease: No HIV/AIDS: No Genitourinary: No Gastrointestinal: No Musculoskeletal: Yes Arthritis Endocrine: No HEENT: No Loss of Vision: Denies Hearing Impairment: Denies Cancer: Yes Lung Did You Recieve Any Treatments: Yes What Type of Treatment Did You: Chemotherapy Psychosocial: No Integumentary: No Blood Disorders: No Adverse Reaction/Blood Tranf: No Family Medical History Hypercholesterolemia 19 FATHER Hypertension 19 FATHER No Pertinent Family Hx, Heart Disease Physical Exam Vital Signs Vital Signs - First Documented 03/09/18 10:59 Temp 96.9 Pulse 85 Resp 21 B/P (MAP) 101/68 (79) Pulse Ox 96 O2 Delivery Nasal Cannula O2 Flow Rate 3.00 Capillary Refill : Height, Weight, BMI Height: 6'0.00" Weight: 176lbs. 0.0oz. [id number]; 23.9 BMI Method:Stated General Appearance: No Apparent Distress, WD/WN Eyes: Bilateral Eye Normal Inspection, Bilateral Eye PERRL, Bilateral Eye EOMI HEENT: PERRL/EOMI, TMs Normal Neck: Full Range of Motion, Normal Inspection Respiratory: No Accessory Muscle Use, No Respiratory Distress Cardiovascular: Regular Rate, Rhythm, Normal Peripheral Pulses Gastrointestinal: Normal Bowel Sounds, Non Tender, Soft Extremity: Normal Capillary Refill, Normal Inspection Neurologic/Psychiatric: Alert, Oriented x3 Skin: Normal Color, Warm/Dry Procedures/Interventions Date of ETT Placement: Mar 09, 2017 Time of ETT Placement: 1811 Suture Size: 5-0 Progress/Results/Core Measures Suspected Sepsis SIRS Temperature: Pulse: Respiratory Rate: Laboratory Tests 03/09/18 11:20: White Blood Count 3.8L Blood Pressure / Mean: Laboratory Tests 03/09/18 11:20: Creatinine 0.76, Platelet Count 191, Total Bilirubin 0.3 Results/Orders Lab Results Laboratory Tests Test 03/09/18 11:20 03/09/18 12:52 Range/Units White Blood Count 3.8 L 4.3-11.0 10^3/uL Red Blood Count 3.33 L 4.35-5.85 10^6/uL Hemoglobin 10.2 L 13.3-17.7 G/DL Hematocrit 30 L 40-54 % Mean Corpuscular Volume 91 80-99 FL Mean Corpuscular Hemoglobin 31 25-34 PG Mean Corpuscular Hemoglobin Concent 34 32-36 G/DL Red Cell Distribution Width 14.6 H 10.0-14.5 % Platelet Count 191 130-400 10^3/uL Mean Platelet Volume 8.5 7.4-10.4 FL Neutrophils (%) (Auto) 74 42-75 % Lymphocytes (%) (Auto) 17 12-44 % Monocytes (%) (Auto) 8 0-12 % Eosinophils (%) (Auto) 0 0-10 % Basophils (%) (Auto) 1 0-10 % Neutrophils # (Auto) 2.8 1.8-7.8 X 10^3 Lymphocytes # (Auto) 0.6 L 1.0-4.0 X 10^3 Monocytes # (Auto) 0.3 0.0-1.0 X 10^3 Eosinophils # (Auto) 0.0 0.0-0.3 10^3/uL Basophils # (Auto) 0.0 0.0-0.1 10^3/uL Sodium Level 129 L 135-145 MMOL/L Potassium Level 4.7 3.6-5.0 MMOL/L Chloride Level 94 L 98-107 MMOL/L Carbon Dioxide Level 25 21-32 MMOL/L Anion Gap 10 5-14 MMOL/L Blood Urea Nitrogen 13 7-18 MG/DL Creatinine 0.76 0.60-1.30 MG/DL Estimat Glomerular Filtration Rate > 60 BUN/Creatinine Ratio 17 Glucose Level 115 H 70-105 MG/DL Calcium Level 8.8 8.5-10.1 MG/DL Corrected Calcium 8.7 8.5-10.1 MG/DL Total Bilirubin 0.3 0.1-1.0 MG/DL Aspartate Amino Transf (AST/SGOT) 12 5-34 U/L Alanine Aminotransferase (ALT/SGPT) 8 0-55 U/L Alkaline Phosphatase 147 H 40-136 U/L Troponin I < 0.30 <0.30 NG/ML Total Protein 7.1 6.4-8.2 GM/DL Albumin 4.1 3.2-4.5 GM/DL Urine Color YELLOW Urine Clarity CLEAR Urine pH 7 5-9 Urine Specific [place] 1.010 L 1.016-1.022 Urine Protein NEGATIVE NEGATIVE Urine Glucose (UA) NEGATIVE NEGATIVE Urine Ketones NEGATIVE NEGATIVE Urine Nitrite NEGATIVE NEGATIVE Urine Bilirubin NEGATIVE NEGATIVE Urine Urobilinogen NORMAL NORMAL MG/DL Urine Leukocyte Esterase NEGATIVE NEGATIVE Urine RBC (Auto) NEGATIVE NEGATIVE Urine RBC NONE /HPF Urine WBC NONE /HPF Urine Squamous Epithelial Cells NONE /HPF Urine Crystals NONE /LPF Urine Bacteria NEGATIVE /HPF Urine Casts NONE /LPF Urine Mucus NEGATIVE /LPF Urine Culture Indicated NO My Orders Orders - NOREEN REES APRN Cbc With Automated Diff (03/09/18 11:04) Comprehensive Metabolic Panel (03/09/18 11:04) Chest 1 View, Ap/Pa Only (03/09/18 11:04) Ct Head/Cervical Spine Wo (03/09/18 11:04) Iv He[place]-Insert (Order) (03/09/18 11:04) Ua Culture If Indicated (03/09/18 11:04) Troponin I (03/09/18 11:04) Ekg Tracing (03/09/18 11:04) Ns Iv 1000 Ml (Sodium Chloride 0.9%) (03/09/18 11:15) Ondansetron Injection (Zofran Injectio (03/09/18 11:15) Cervical Collar (03/09/18 12:20) Medications Given in ED Current Medications Medications Dose Ordered Sig/Porfirio Route Start Time Stop Time Status Last Admin Dose Admin Ondansetron HCl 8 mg ONCE ONCE IVP 03/09/18 11:15 03/09/18 11:16 DC 03/09/18 11:28 8 MG Vital Signs/I&O 03/09/18 10:59 Temp 96.9 Pulse 85 Resp 21 B/P (MAP) 101/68 (79) Pulse Ox 96 O2 Delivery Nasal Cannula O2 Flow Rate 3.00 Capillary Refill : Diagnostic Imaging Diagonstic Imaging: Xray, CT Comments NAME: CR QUIJANO [facility] REC#: [id number] PT STATUS: REG ER : 1955 PHYSICIAN: NOREEN REES 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 DATE: March 09, 2018 at 1123 hours. INDICATION: 62-year-old male, dizziness and vomiting. COMPARISON: February 03, 2018. FINDINGS: There is a right-sided port catheter with tip overlying the mid SVC. Stable overall appearance of the cardiomediastinal silhouette. There is no identified pneumothorax. There are streaky opacities in the right lower lobe. There are improved streaky opacities in the left lung base and right midlung. There are persistent streaky bilateral parahilar opacities. There is no identified pneumothorax. There is no large pleural effusion. There is end-stage glenohumeral arthritis bilaterally. IMPRESSION: 1. Streaky opacities in the right lung base and bilateral parahilar regions which are unchanged since February 03, 2018. 2. Interval improvement of streaky opacities in the left lung base and right midlung. Dictated on workstation # [id number] Dict: 03/09/18 1135 Trans: 03/09/18 1148 CVB [id number] Interpreted by: XANDER CARBONE MD Electronically signed by: NAME: CR QUIJANO [facility] REC#: [id number] PT STATUS: REG ER : 1955 PHYSICIAN: NOREEN REES APRN ADMIT DATE: 03/09/18/ER Draft Date of Exam:03/09/18 CT HEAD/CERVICAL SPINE WO PROCEDURE: CT head and CT cervical spine without contrast. TECHNIQUE: Multiple contiguous axial images were obtained through the brain and cervical spine without the use of intravenous contrast. Sagittal and coronal reformations through the cervical spine were then performed. INDICATION: Fell, head and neck pain. CT head: There is no mass, shift of midline or hemorrhage to suggest an acute intracranial abnormality. As noted on the prior exam of 09/24/2017, there is asymmetric enlargement of the right lateral ventricle compared to the left. There is also volume loss of the right cerebral hemisphere compared to the left. These findings are no different than on the prior exam. There is no mass, shift of midline or hemorrhage to suggest an acute abnormality. The bone windows show no evidence for fracture or for destructive lesion. The orbits are symmetrical and within normal limits. The sinuses, where visualized, are generally clear. IMPRESSION: There is no evidence for an acute intracranial abnormality. If clinical concern regarding an underlying abnormality persists, MRI would recommended for further study. CT cervical spine: The previous CT cervical spine exam performed on 04/30/2017 noted cystic degeneration of the dens and severe degenerative disc and bony disease at C5-6 and C6-7 but failed to show any sign of an acute abnormality. On this study however there is now a comminuted displaced fracture extending through the ventral aspect of the dens obliquely. The body of C2 is also involved and there is approximately diastases between the main fracture fragments. There is also soft tissue edema about the fractured dens. No other fracture or acute bony abnormality is noted. The severe degenerative disc and bony disease at C5-6 and C6-7 seen preceding has not progressed. There is no mass or adenopathy. The lung apices are clear. IMPRESSION: 1. In the interval since the prior exam, a displaced slightly comminuted fracture of the base of the odontoid and C2 has developed. This would be consistent with type III odontoid fracture. 2. There is no acute bony abnormality noted otherwise. 3. The severe degenerative disc and bony disease at C5-6 and C6-7 noted previously is again evident and no different. These results were discussed with Noreen Rees APRN at the time of this exam. Dictated on workstation # [id number] Dict: 03/09/18 1214 Trans: 03/09/18 1232 [facility] [id number] Interpreted by: FUAD KC MD Electronically signed by: Departure Communication (Admissions) Time/Spoke to Admitting Phy: 13:[address] Genao. Will admit Time/Spoke to Consulting Phy: 13:[address] Turpin. He has been to the emergency room to evaluate the patient. Recommends MRI outpatient or if the patient is admitted for other reasons to be done then, hard collar and follow up outpatient. Impression Primary Impression: Weakness Additional Impression: Dens fracture Qualified Codes: S12.100A - Unspecified displaced fracture of second cervical vertebra, initial encounter for closed fracture Disposition: 01 HOME, SELF-CARE Condition: Stable Admissions Decision to Admit Reason: Admit from ER (General) Decision to Admit/Date: Mar 09, 2018 Time/Decision to Admit Time: 13:26 Departure-Patient Inst. Referrals: AMANDEEP GENAO DO (PCP/Family) Primary Care Physician NOREEN REES APRN Mar 09, 2018 11:08
[2018-03-09] MEDS ORDERED: NS IV 1000 ML 1,000 ML IV SCH (11:15)
[2018-03-09] MEDS ORDERED: ONDANSETRON 4 MG/2 ML (SDV) Z0FRAN IVP ONE (11:15)
[2018-03-09 11:27] LABS: BASOPHILS % (AUTO) 1 % (0-10); EOSINOPHILS % (AUTO) 0 % (0-10); HEMATOCRIT 30 % (40-54); HEMOGLOBIN 10.2 G/DL (13.3-17.7); LYMPHOCYTES # (AUTO) 0.6 X 10^3 (1.0-4.0); LYMPHOCYTES % (AUTO) 17 % (12-44); MEAN CORPUSCULAR HEMOGLOBIN 31 PG (25-34); MEAN CORPUSCULAR HGB CONC 34 G/DL (32-36); MEAN CORPUSCULAR VOLUME 91 FL (80-99); MEAN PLATELET VOLUME 8.5 FL (7.4-10.4); MONOCYTES # (AUTO) 0.3 X 10^3 (0.0-1.0); MONOCYTES % (AUTO) 8 % (0-12); NEUTROPHILS # (AUTO) 2.8 X 10^3 (1.8-7.8); NEUTROPHILS % (AUTO) 74 % (42-75); PLATELET COUNT 191 10^3/uL (130-400); RED BLOOD COUNT 3.33 10^6/uL (4.35-5.85); RED CELL DISTRIBUTION WIDTH 14.6 % (10.0-14.5); WHITE BLOOD COUNT 3.8 10^3/uL (4.3-11.0)
[2018-03-09 11:45] LABS: ALANINE AMINOTRANSFERASE 8 U/L (0-55); ALBUMIN 4.1 GM/DL (3.2-4.5); ALKALINE PHOSPHATASE 147 U/L (40-136); BILIRUBIN,TOTAL 0.3 MG/DL (0.1-1.0); BUN/CREATININE RATIO 17; CALCIUM 8.8 MG/DL (8.5-10.1); CARBON DIOXIDE 25 MMOL/L (21-32); CHLORIDE 94 MMOL/L (98-107); CREATININE SERUM 0.76 MG/DL (0.60-1.30); GFR ESTIMATED > 60; GLUCOSE 115 MG/DL (70-105); POTASSIUM 4.7 MMOL/L (3.6-5.0); SODIUM 129 MMOL/L (135-145); TOTAL PROTEIN 7.1 GM/DL (6.4-8.2)
--- NOTE | 2018-03-09 11:49 | Diagnostic Imaging Report ---
EXAMINATION: Chest radiograph, portable AP view. DATE: March 09, 2018 at 1123 hours. INDICATION: 62-year-old male, dizziness and vomiting. COMPARISON: February 03, 2018. FINDINGS: There is a right-sided port catheter with tip overlying the mid SVC. Stable overall appearance of the cardiomediastinal silhouette. There is no identified pneumothorax. There are streaky opacities in the right lower lobe. There are improved streaky opacities in the left lung base and right midlung. There are persistent streaky bilateral parahilar opacities. There is no identified pneumothorax. There is no large pleural effusion. There is end-stage glenohumeral arthritis bilaterally. IMPRESSION: 1. Streaky opacities in the right lung base and bilateral parahilar regions which are unchanged since February 03, 2018. 2. Interval improvement of streaky opacities in the left lung base and right midlung. Dictated by: Dictated on workstation # [id number]
--- NOTE | 2018-03-09 12:33 | Diagnostic Imaging Report ---
PROCEDURE: CT head and CT cervical spine without contrast. TECHNIQUE: Multiple contiguous axial images were obtained through the brain and cervical spine without the use of intravenous contrast. Sagittal and coronal reformations through the cervical spine were then performed. INDICATION: Fell, head and neck pain. CT head: There is no mass, shift of midline or hemorrhage to suggest an acute intracranial abnormality. As noted on the prior exam of 09/24/2017, there is asymmetric enlargement of the right lateral ventricle compared to the left. There is also volume loss of the right cerebral hemisphere compared to the left. These findings are no different than on the prior exam. There is no mass, shift of midline or hemorrhage to suggest an acute abnormality. The bone windows show no evidence for fracture or for destructive lesion. The orbits are symmetrical and within normal limits. The sinuses, where visualized, are generally clear. IMPRESSION: There is no evidence for an acute intracranial abnormality. If clinical concern regarding an underlying abnormality persists, MRI would recommended for further study. CT cervical spine: The previous CT cervical spine exam performed on 04/30/2017 noted cystic degeneration of the dens and severe degenerative disc and bony disease at C5-6 and C6-7 but failed to show any sign of an acute abnormality. On this study however there is now a comminuted displaced fracture extending through the ventral aspect of the dens obliquely. The body of C2 is also involved and there is approximately 3 mm of diastases between the main fracture fragments. There is also soft tissue edema about the fractured dens. No other fracture or acute bony abnormality is noted. The severe degenerative disc and bony disease at C5-6 and C6-7 seen preceding has not progressed. There is no mass or adenopathy. The lung apices are clear. IMPRESSION: 1. In the interval since the prior exam, a displaced slightly comminuted fracture of the base of the odontoid and C2 has developed. This would be consistent with type III odontoid fracture. 2. There is no acute bony abnormality noted otherwise. 3. The severe degenerative disc and bony disease at C5-6 and C6-7 noted previously is again evident and no different. These results were discussed with Bernardo Rees APRN at the time of this exam. CRITCAL FINDING Dictated by: Dictated on workstation # [id number]
[2018-03-09 13:00] LABS: BILIRUBIN,URINE NEGATIVE (NEGATIVE); CLARITY,URINE CLEAR; COLOR,URINE YELLOW; GLUCOSE, URINE (UA) NEGATIVE (NEGATIVE); KETONES,URINE NEGATIVE (NEGATIVE); LEUKOCYTE ESTERASE ,URINE NEGATIVE (NEGATIVE); NITRITE,URINE NEGATIVE (NEGATIVE); PH,URINE 7 (5-9); PROTEIN,URINE NEGATIVE (NEGATIVE); UROBILINOGEN,URINE NORMAL (NORMAL)
[2018-03-09 13:13] LABS: BACTERIA,URINE NEGATIVE /HPF
--- NOTE | 2018-03-09 13:59 | Consultation ---
History of Present Illness History of Present Illness Patient Consulted On(cat/time) 03/09/18 13:53 Date Seen by Provider: Mar 09, 2018 Time Seen by Provider: 12:58 Reason for Visit: Neck pain and nausea History of Present Illness 62 y/o white male fell at home and struck his head on the ottoman. Has worsening neck pain, no neuro symptoms, no new changes in function. Denies other injuries. Has history of metastatic Lung CA, undergoing chemo currently. Allergies and Home Medications Allergies Coded Allergies: aspirin (Unverified Allergy, Mild, DOES NOT WORK WELL W/ OTHER MEDS, ) ibuprofen (Unverified Allergy, Mild, 08/05/17) Home Medications Albuterol Sulfate 2.5 Mg/3 Ml Vial.neb, 2.5 MG NEB 5XD PRN for SHORTNESS OF BREATH, (Reported) Albuterol Sulfate 1 Puff Puff, 2 PUFF IH Q6H PRN for SHORTNESS OF BREATH, ( Reported) 1 PUFF = 90 MCG Amlodipine Besylate 5 Mg Tablet, 5 MG PO 0800, (Reported) Atorvastatin Calcium 10 Mg Tablet, 10 MG PO 0300, (Reported) Bromfenac Sodium 5 Ml Drops, 1 DROP OU TID, (Reported) Carbamazepine 200 Mg Tablet, 200 MG PO 0800,2300,0300, (Reported) Carbamazepine 200 Mg Tablet, 400 MG PO 1500, (Reported) TAKES 2 (200 MG) TABLETS Cefdinir 300 Mg Capsule, 300 MG PO BID Prescribed by: ABN ACRNES on 02/03/18 1126 Fluticasone/Salmeterol 1 Each Blst.w.dev, 1 PUFF INH BID, (Reported) Gabapentin 300 Mg Capsule, 300 MG PO 2300, (Reported) Gabapentin 600 Mg Tablet, 600 MG PO 0800,1500, (Reported) Hydrocodone/Acetaminophen 1 Each Tablet, 1 TAB PO Q6H PRN for PAIN-MODERATE, ( Reported) Lamotrigine 100 Mg Tablet, 100 MG PO 1500,2300, (Reported) Lamotrigine 25 Mg Tablet, 25 MG PO 1500,0300, (Reported) Lisinopril 20 Mg Tablet, 20 MG PO 0300, (Reported) Meloxicam 15 Mg Tablet, 15 MG PO 1500, (Reported) Pantoprazole Sodium 40 Mg Tablet.dr, 40 MG PO DAILY PRN for HEARTBURN, (Reported ) Phenytoin Sodium Extended 100 Mg Capsule, 200 MG PO 0800,1500, (Reported) TAKES 2 (100 MG) CAPSULES Phenytoin Sodium Extended 100 Mg Capsule, 100 MG PO 2300, (Reported) Prednisone 10 Mg Tab.ds.pk, 10 MG PO DAILY Take 6 tabs(60mg)daily,decrease by 1 tab(10MG)daily. Prescribed by: BAN CARNES on 02/03/18 1126 Ropinirole HCl 0.25 Mg Tablet, 0.25 MG PO 0800,1500,2300, (Reported) Tiotropium [place] 1 Inh Aerp, 1 CAP IH DAILY, (Reported) Patient Home Medication List Home Medication List Reviewed: Yes Past Yhacwyv-Cshpil-Asghag Hx Patient Social History Alcohol Use: Denies Use Recreational Drug Use: Yes (not current, 15 years ago-ETOH and PO drugs) Type Used: Cigarettes Former Smoker, Quit: Feb 12, 2017 2nd Hand Smoke Exposure: No (quit in 2016) Recent Foreign Travel: No Contact w/Someone Who Travel: No Recent Infectious Disease Expo: No Recent Hopitalizations: Yes Physical Abuse: No Sexual Abuse: No Immunizations Up To Date Tetanus Booster (TDap): Unknown PED Vaccines UTD: Yes Seasonal Allergies Seasonal Allergies: Yes Past Medical History Surgeries: Yes Gallbladder Respiratory: Yes (METASTATIC LUNG CANCER DX 05/2017/COPD) Asthma, Pneumonia, Sleep Apnea, COPD Currently Using CPAP: No Currently Using BIPAP: Yes Cardiac: Yes High Cholesterol, Hypertension Neurological: Yes (post polio syndrome with left-sided deficits) Seizure Disorder Reproductive Disorders: No Sexually Transmitted Disease: No HIV/AIDS: No Genitourinary: No Gastrointestinal: No Musculoskeletal: Yes Arthritis Endocrine: No HEENT: No Loss of Vision: Denies Hearing Impairment: Denies Cancer: Yes Lung Did You Recieve Any Treatments: Yes What Type of Treatment Did You: Chemotherapy Psychosocial: No Integumentary: No Blood Disorders: No Adverse Reaction/Blood Tranf: No Family Medical History Hypercholesterolemia 19 FATHER Hypertension 19 FATHER No Pertinent Family Hx, Heart Disease Review of Systems-General Constitutional: malaise, weakness EENTM: see HPI Respiratory: short of breath Cardiovascular: no symptoms reported Gastrointestinal: no symptoms reported Musculoskeletal: neck pain Skin: no symptoms reported Psychiatric/Neurological: No Symptoms Reported Physical Exam-General Problems Physical Exam Vital Signs Vital Signs - First Documented 03/09/18 10:59 Temp 96.9 Pulse 85 Resp 21 B/P (MAP) 101/68 (79) Pulse Ox 96 O2 Delivery Nasal Cannula O2 Flow Rate 3.00 Capillary Refill : Less Than 3 Seconds General Appearance: WD/WN, no apparent distress HEENT: normal ENT inspection Neck: limited range of motion, tender midline, other (Hard collar in place.) Respiratory: no respiratory distress, no accessory muscle use Cardiovascular: normal peripheral pulses Gastrointestinal: soft Extremities: normal range of motion, non-tender Neurologic/Psychiatric: no motor/sensory deficits, alert, normal mood/affect Skin: normal color Lymphatic: no adenopathy Comments CT scan of neck shows a displaced Odontoid Fracture, Type 3, with large cystic change in the bone. Plenty of canal space is noted. Severe Degenerative changes as well. Compared to prior bone scan, which lights up in neck and what appears to be a degenerative cyst in C2. 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 CHERRY PRESCOTT MD Mar 09, 2018 13:58
--- NOTE | 2018-03-09 15:28 | Physical Therapy Progress Note ---
Therapy Progress Note Patient is currently unavailable due to testing. PT to evaluate in [place] Ibarra PT Mar 09, 2018 15:28
[2018-03-09] MEDS ORDERED: fentaNYL INJECTION 100 MCG/2 ML AMP IV PRN (15:30)
[2018-03-09] MEDS ORDERED: CATHETER FLUSH 10 ML SYR IV PRN (15:30)
--- NOTE | 2018-03-09 15:45 | Occ Therapy Progress Note ---
Therapy Progress Note Pt unavailable due to testing. Will see tomorrow KEELY TAMAYO OT Mar 09, 2018 15:45
[2018-03-09] MEDS: PHENYTOIN 100 MG (DILANTIN) CAP PO SCH ×2 (15:49→23:32)
[2018-03-09] MEDS ORDERED: OMEP20CA12 PO (15:54)
[2018-03-09] MEDS ORDERED: CYCL10TA9 PO (15:54)
[2018-03-09] MEDS ORDERED: EYE DROP (15:54)
[2018-03-09] MEDS ORDERED: FLUT12AE4 INH (15:54)
[2018-03-09] MEDS ORDERED: LEVO500T80 PO (15:54)
[2018-03-09 16:25] VITALS: BP 130/75
[2018-03-09] MEDS ORDERED: FLU QUADRIvalent (5+ YOA) 2018-2019 (AFLURIA) 0.5 ML IM ONE (16:30)
--- NOTE | 2018-03-09 16:30 | Diagnostic Imaging Report ---
PROCEDURE: MR imaging cervical spine without contrast. TECHNIQUE: Multiplanar, multisequence MR imaging of the cervical spine was performed without contrast. INDICATION: Neck pain. COMPARISON: There are no previous MRI examinations available for comparison. FINDINGS: The CT of the cervical spine exam performed earlier today noted a Type III odontoid fracture. There is abnormal signal throughout the odontoid and the junction of C2 and the odontoid. This does suggest bone edema and this would be consistent with the patient's history of a recent fracture in this area. The fracture fragments seen on the CT exam are not as well-visualized as they were on the CT study but did not seem to have changed significantly in alignment. There is no abnormal signal in this area to suggest that this fracture is pathologic in nature. There is no abnormal signal arising from the cord itself at this level. There is no other acute bony abnormality appreciated. There is severe degenerative disc and bony disease involving the cervical spine, particularly at C5-6 and C6-7. The AP diameter of the thecal sac is narrowed to approximately 7.8 mm at C6-7 and 7.8 mm at C5-6. There is also narrowing of the neural foramen bilaterally at these two levels. In addition, there is also spinal stenosis at the C3-4 level. The AP diameter of the thecal sac is narrowed to 7.3 mm. There is neural foraminal narrowing bilaterally at this level too. There is no other evidence for a high-grade central stenosis. There is no sign of a paraspinal mass. The expected carotid and vertebral flow voids are evident bilaterally. IMPRESSION: 1. The Type III fracture of the odontoid seen previously is again evident. There is no acute bony abnormality noted otherwise. There is no sign of a pathologic fracture either. 2. There is degenerative disc, ligaments and bony disease throughout the cervical spine. The C3-4, C5-6 and C6-7 levels are most severely affected as there is spinal stenosis at these three levels. There is also neural foraminal narrowing bilaterally. 3. There is no evidence for an injury to the cord. 4. These results were discussed with Dr. Feng. Dictated by: Dictated on workstation # [id number]
[2018-03-09] MEDS ORDERED: HYDROcodone/APAP 5 MG/325 MG (LORTAB) TAB PO PRN (18:15)
[2018-03-09] MEDS ORDERED: carBAMazepine 200 MG (TEGretol) TAB PO ONE (18:47)
[2018-03-09] MEDS ORDERED: GABAPENTIN 300 MG (NEURONTIN) CAP ONE (18:47)
[2018-03-09] MEDS: GABAPENTIN 300 MG (NEURONTIN) CAP PO SCH (18:49)
[2018-03-09] MEDS: carBAMazepine 200 MG (TEGretol) TAB PO SCH (18:50)
[2018-03-09] MEDS: RT-ADVAIR HFA 115/21 MCG PER PUFF IH SCH (19:34)
[2018-03-09 19:55] VITALS: BP 102/58
[2018-03-09] MEDS: CATHETER FLUSH 10 ML SYR IV SCH (20:07)
[2018-03-09] MEDS ORDERED: CYCLOBENZAPRINE 10 MG (FLEXERIL) TAB PO SCH (21:00)
[2018-03-09] MEDS ORDERED: PHENYTOIN 100 MG (DILANTIN) CAP PO SCH (23:00)
[2018-03-09] MEDS ORDERED: rOPINIRole 0.25 MG (REQUIP) TAB PO SCH (23:00)
[2018-03-10 00:11] VITALS: BP 118/57
[2018-03-10] MEDS: carBAMazepine 200 MG (TEGretol) TAB PO SCH ×4 (03:20→22:51)
[2018-03-10] MEDS: lamoTRIgine 25 MG (LaMICtal) TAB PO SCH ×2 (03:20→16:02)
[2018-03-10] MEDS: lisINopril 20 MG (PRINIVIL) TABLET PO SCH (03:20)
[2018-03-10] MEDS: ATORVASTATIN 10 MG (LIPITOR) TABLET PO SCH (03:20)
[2018-03-10 04:08] VITALS: BP 127/70
[2018-03-10] MEDS: CATHETER FLUSH 10 ML SYR IV SCH ×3 (04:57→22:52)
--- NOTE | 2018-03-10 06:03 | Progress Note (SOAP) ---
Subjective Date Seen by a Provider: Mar 10, 2018 Time Seen by a Provider: 05:57 Subjective/Events-last exam patient with type 3 odontoid fracture No spinal cord injury on MRI. Chronic DDD and spinal stenosis C3-4, C5-7, No canal compromise at C1-2 Patient continues to refuse Hard collar and wears his cervical pillow. Nursing staff has adamantly attempted to have the patient wear his [place] collar. Review of Systems General: No Chills Gastrointestinal: No: Nausea, Vomiting, Abdominal Pain Genitourinary: No Frequency, No Incontinence Musculoskeletal: neck pain; No: arm pain Neurological: No: Numbness, Incoordination Objective Exam Vital Signs Date Time Temp Pulse Resp B/P (MAP) Pulse Ox O2 Delivery O2 Flow Rate FiO2 03/10/18 04:08 97.6 63 18 127/70 (89) 97 Nasal Cannula 3.00 03/10/18 00:11 97.8 65 18 118/57 (77) 97 Nasal Cannula 3.00 03/09/18 20:00 Nasal Cannula 3.00 03/09/18 19:55 97.2 69 16 102/58 (73) 98 Nasal Cannula 3.00 03/09/18 19:40 96 Nasal Cannula 3.00 03/09/18 17:06 97 Nasal Cannula 3.00 03/09/18 16:25 97.2 70 16 130/75 (93) 97 Nasal Cannula 3.00 03/09/18 14:30 96.9 80 20 101/79 (86) 95 Nasal Cannula 3.00 03/09/18 10:59 96.9 85 21 101/68 (79) 96 Nasal Cannula 3.00 I & O 03/10/18 07:00 Intake Total 2030 ml Output Total 1000 ml Balance 1030 ml Capillary Refill : Less Than 3 Seconds General Appearance: No Apparent Distress Neck: Other (neck pillow in place) Respiratory: No Respiratory Distress Extremity: Normal Range of Motion Neurologic/Psychiatric: Alert, Oriented x3, No Motor/Sensory Deficits, Normal Mood/Affect, manager cable II-XII Norm as Tested; No Motor Weakness, No Sensory Deficit; Other (Negative Swartz's, No Clonus. Bilateral biceps and triceps reflexes +2) Skin: Normal Color Results Lab Laboratory Tests 03/09/18 11:20: White Blood Count 3.8L, Red Blood Count 3.33L, Hemoglobin 10.2L, Hematocrit 30L , Mean Corpuscular Volume 91, Mean Corpuscular Hemoglobin 31, Mean Corpuscular Hemoglobin Concent 34, Red Cell Distribution Width 14.6H, Platelet Count 191, Mean Platelet Volume 8.5, Neutrophils (%) (Auto) 74, Lymphocytes (%) (Auto) 17, Monocytes (%) (Auto) 8, Eosinophils (%) (Auto) 0, Basophils (%) (Auto) 1, Neutrophils # (Auto) 2.8, Lymphocytes # (Auto) 0.6L, Monocytes # (Auto) 0.3, Eosinophils # (Auto) 0.0, Basophils # (Auto) 0.0, Sodium Level 129L, Potassium Level 4.7, Chloride Level 94L, Carbon Dioxide Level 25, Anion Gap 10, Blood Urea Nitrogen 13, Creatinine 0.76, Estimat Glomerular Filtration Rate > 60, BUN/ Creatinine Ratio 17, Glucose Level 115H, Calcium Level 8.8, Corrected Calcium 8.7, Total Bilirubin 0.3, Aspartate Amino Transf (AST/SGOT) 12, Alanine Aminotransferase (ALT/SGPT) 8, Alkaline Phosphatase 147H, Troponin I < 0.30, Total Protein 7.1, Albumin 4.1 03/09/18 12:52: Urine Color YELLOW, Urine Clarity CLEAR, Urine pH 7, Urine Specific [place] 1.010L, Urine Protein NEGATIVE, Urine Glucose (UA) NEGATIVE, Urine Ketones NEGATIVE, Urine Nitrite NEGATIVE, Urine Bilirubin NEGATIVE, Urine Urobilinogen NORMAL, Urine Leukocyte Esterase NEGATIVE, Urine RBC (Auto) NEGATIVE, Urine RBC NONE, Urine WBC NONE, Urine Squamous Epithelial Cells NONE, Urine Crystals NONE , Urine Bacteria NEGATIVE, Urine Casts NONE, Urine Mucus NEGATIVE, Urine Culture Indicated NO Assessment/Plan Assessment/Plan Assess & Plan/Chief Complaint Type III odontoid fracture, without cord injury Patient was once again educated on the risk of or neurologic injury, if he does not wear his hard collar. He agreed to wear it while I was in the room. Collar was placed by myself Patient to follow up with Dr. Turpin in 1-2 weeks. Clinical Quality Measures DVT/VTE Risk/Contraindication: Risk Factor Score Per Nursin RFS Level Per Nursing on Admit: 2=Moderate ZAHRAA TAN Mar 10, 2018 06:03
--- NOTE | 2018-03-10 07:56 | History & Physicial ---
History of Present Illness History of Present Illness Reason for visit/HPI Patient fell at home and struck his head on the ottoman . His neck snapback and has pain in this neck. Patient stated he could hardly walk. Patient stated he got sick yesterday and had trouble getting to the car area Patient admits to vomiting. She states he can't walk well yesterday. Patient has a history of seizures. Patient has COPD. Patient has lung cancer with metastasis Date of Admission Mar 09, 2018 at 13:48 Time Seen by a Provider: 07:51 I consulted on this patient on 03/10/18 07:50 Attending Physician Micky Genao DO Admitting Physician Micky Genao DO Consult Allergies and Home Medications Allergies Coded Allergies: aspirin (Unverified Allergy, Mild, DOES NOT WORK WELL W/ OTHER MEDS, 03/09) ibuprofen (Unverified Allergy, Mild, 03/09/18) Home Medications Albuterol Sulfate 2.5 Mg/3 Ml Vial.neb, 2.5 MG NEB 5XD PRN for SHORTNESS OF BREATH, (Reported) Albuterol Sulfate 1 Puff Puff, 2 PUFF IH Q6H PRN for SHORTNESS OF BREATH, ( Reported) 1 PUFF = 90 MCG Amlodipine Besylate 5 Mg Tablet, 5 MG PO 0800, (Reported) Atorvastatin Calcium 10 Mg Tablet, 10 MG PO 0300, (Reported) Carbamazepine 200 Mg Tablet, 200 MG PO 0800,2300,0300, (Reported) Carbamazepine 200 Mg Tablet, 400 MG PO 1500, (Reported) TAKES 2 (200 MG) TABLETS Cyclobenzaprine HCl 10 Mg Tablet, 10 MG PO TID, (Reported) Fluticasone/Salmeterol 12 Gm Hfa.aer.ad, 2 PUFF INH BID, (Reported) Gabapentin 300 Mg Capsule, 300 MG PO 2300, (Reported) Gabapentin 600 Mg Tablet, 600 MG PO 0800,1500, (Reported) Hydrocodone/Acetaminophen 1 Each Tablet, 1 TAB PO Q6H PRN for PAIN-MODERATE, ( Reported) Lamotrigine 100 Mg Tablet, 100 MG PO 1500,2300, (Reported) Lamotrigine 25 Mg Tablet, 25 MG PO 1500,0300, (Reported) Levofloxacin 500 Mg Tablet, 500 MG PO MoWeFr, (Reported) Lisinopril 20 Mg Tablet, 20 MG PO 0300, (Reported) Meloxicam 15 Mg Tablet, 15 MG PO 1500, (Reported) Omeprazole 20 Mg Capsule.dr, 20 MG PO DAILY PRN for HEARTBURN, (Reported) Phenytoin Sodium Extended 100 Mg Capsule, 200 MG PO 0800,1500, (Reported) TAKES 2 (100 MG) CAPSULES Phenytoin Sodium Extended 100 Mg Capsule, 100 MG PO 2300, (Reported) Ropinirole HCl 0.25 Mg Tablet, 0.25 MG PO 0800,1500,2300, (Reported) Tiotropium [place] 1 Inh Aerp, 1 CAP IH DAILY, (Reported) [Eye Drop] , UD PRN for DRY EYES, (Reported) Patient Home Medication List Home Medication List Reviewed: Yes Past Juluxbz-Liwmhg-Wqwjxs Hx Patient Social History Marrital Status: cohabiting Employed/Student: unemployed Alcohol Use: Denies Use Recreational Drug Use: Yes (not current, 15 years ago-ETOH and PO drugs) Smoking Status: Never a Smoker Former Smoker, Quit: Feb 12, 2017 Type Used: Cigars 2nd Hand Smoke Exposure: No (quit in 2016) Physical Abuse Screen: No Sexual Abuse: No Recent Foreign Travel: No Contact w/other who traveled: No Recent Hopitalizations: Yes Recent Infectious Disease Expo: No Immunizations Up To Date Tetanus Booster (TDap): Unknown Pediatric: Yes Seasonal Allergies Seasonal Allergies: Yes Surgeries Yes Gallbladder Respiratory Yes (METASTATIC LUNG CANCER DX 05/2017/COPD) COPD, Emphysema, Pneumonia Currently Using CPAP: No Currently Using BIPAP: Yes Cardiovascular Yes High Cholesterol, Hypertension 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) Seizure Disorder Reproductive System Hx Reproductive Disorders: No Sexually Transmitted Disease: No HIV/AIDS: No Genitourinary No Gastrointestinal No Musculoskeletal Yes Arthritis Endocrine History of Endocrine Disorders: No Are Your Blood Sugars Over 250: No HEENT History of HEENT Disorders: No Loss of Vision: Denies Hearing Impairment: Denies Cancer Yes Lung Did You Recieve Any Treatments: Yes Type of Treatment: Chemotherapy Psychosocial History of Psychiatric Problem: No Integumentary History of Skin or Integumenta: No Blood Transfusions History of Blood Disorders: No Adverse Reaction to a Blood Tr: No Family Medical History Significant Family History: No Pertinent Family Hx, Heart Disease Family Hx: Hypercholesterolemia 19 FATHER Hypertension 19 FATHER Review of Systems Constitutional: malaise, weakness EENTM: other (Neck pain) Respiratory: no symptoms reported, other (COPD on oxygen) Cardiovascular: no symptoms reported Gastrointestinal: no symptoms reported Genitourinary: no symptoms reported Physical Exam Vital Signs Vital Signs - First Documented 03/09/18 10:59 Temp 96.9 Pulse 85 Resp 21 B/P (MAP) 101/68 (79) Pulse Ox 96 O2 Delivery Nasal Cannula O2 Flow Rate 3.00 Capillary Refill : Less Than 3 Seconds Height, Weight, BMI Height: 6'0.00" Weight: 174lbs. 1.0oz. 78.947965by; 23.6 BMI Method:Stated General Appearance: No Apparent Distress, Thin Eyes: Bilateral Eye Normal Inspection HEENT: Other (Wearing a cervical collar) Neck: Other Respiratory: No Accessory Muscle Use, No Respiratory Distress, Decreased Breath Sounds Cardiovascular: Regular Rate, Rhythm, No Murmur Gastrointestinal: Non Tender, Soft Assessment/Plan Assessment and Plan Cervical fracture. Type III odontoid fracture. C2 fracture. Weakness. Falling. COPD. Lung cancer with metastasis. Hypertension. Seizures. Hyperlipidemia Admission Diagnosis Admission Status: Observation Clinical Quality Measures DVT/VTE Risk/Contraindication: Risk Factor Score Per Nursin RFS Level Per Nursing on Admit: 2=Moderate MICKY GENAO DO Mar 10, 2018 07:56
[2018-03-10 08:00] VITALS: BP 147/72
[2018-03-10] MEDS: GABAPENTIN 600 MG (NEURONTIN) TAB PO SCH ×2 (08:40→16:02)
[2018-03-10] MEDS: PHENYTOIN 100 MG (DILANTIN) CAP PO SCH ×5 (08:40→22:51)
[2018-03-10] MEDS: rOPINIRole 0.25 MG (REQUIP) TAB PO SCH ×2 (08:40→22:51)
[2018-03-10] MEDS: amLODIPine 5 MG (NORVASC) TAB PO SCH (08:40)
[2018-03-10] MEDS: UMECLIDINIUM BROMIDE (INCRUSE ELLIPTA) 7'S IH SCH (08:56)
[2018-03-10] MEDS: RT-ADVAIR HFA 115/21 MCG PER PUFF IH SCH ×2 (08:56→21:34)
[2018-03-10] MEDS: RT-ALBUTEROL SULF 2.5 MG/3 ML PRE-MIX VIAL IH PRN ×2 (08:56→21:34)
[2018-03-10] MEDS ORDERED: PANTOPRAZOLE 20 MG TABLET (PROTONIX) PO PRN (09:00)
--- NOTE | 2018-03-10 10:06 | Physical Therapy Evaluation ---
PT Evaluation-General Medical Diagnosis Admission Date Mar 09, 2018 at 13:48 Medical Diagnosis: weakness/C2 fracture Onset Date: Mar 09, 2018 Therapy Diagnosis Therapy Diagnosis: debility Height/Weight Height (Feet): 6 Height (Inches): 0.00 Weight (Pounds): 174 Weight (Ounces): 1.0 Precautions Precautions/Isolations: Fall Prevention, Standard Precautions Weight Bear Status Right Lower Extremity: Right Full Weight Bearing Left Lower Extremity: Left Full Weight Bearing Referral Physician: Jung Reason for Referral: Evaluation/Treatment Medical History Pertinent Medical History: Arthritis, COPD, Heart Failure, Post Polio Syndrome , Smoking Current History ER secondary to 2-3 days of N&V, weakness, falls, hit head/Dens fracture Social History Home: Single Level Current Living Status: Other Family Prior/[facility] Prior Level of Function Therapy Code Descriptions/Definitions Functional [place] Measure: 0=Not Assessed/NA 4=Minimal Assistance 1=Total Assistance 5=Supervision or Setup 2=Maximal Assistance 6=Modified [place] 3=Moderate Assistance 7=Complete [place] Therapy Quality Codes: 6 Independent with activity with or without an assistive device 5 Patient requires set up or clean up by helper. Patient completes activity by themselves 4 Supervision or touching assist (CGA). [place] provide cues , steadying assist 3 The helper provides less than half the effort to complete the activity 2 The helper provides more than half the effort to complete the activity 1 Dependent. The helper does all the effort to complete an activity 7 Patient refused to complete or attempt activity 9 The patient did not perform the activity before the current illness or injury 88 Not attempted due to Medical conditions or safety concerns Functional Abilities and Goals: Independent: Patient completed the activities by him/herself, with or without an assistive device, with no assistance from a helper. Needed Some Help: Patient needed partial assistance from another person to complete activities. Dependent: A helper completed the activities for the patient. Unknown: Not Applicable: Bed Mobility: 7 Transfers (B,C,W/C) (FIM): 7 Gait: 7 Indoor Mobility (Ambulation): Independent Stairs: Independent PT Evaluation-Current Subjective Patient agrees to PT. Declined FWW and gait belt use. Education on safety concerns issued, however, patient continued to decline use. Pain Numeric Pain Scale: 0-No Pain Location: No Pain Reported Objective Patient Orientation: Normal For Age Problem Solving: Fair Attachments: Oxygen ROM/Strength ROM Lower Extremities bilateral LE WFL Strength Lower Extremities right LE 4+/5 grossly/left LE 3+/5 grossly Integumentary/Posture Integumentary refer to nursing notes Bowel Incontinence: No Bladder Incontinence: No Posture WFL Neuromuscular (Tone, Coordination, Reflexes) grossly intact Sensory Vision: Functional Hearing: Functional Sensation Right Lower Extremit: Intact Sensation Left Lower Extremity: Intact Transfers Therapy Code Descriptions/Definitions Functional [place] Measure: 0=Not Assessed/NA 4=Minimal Assistance 1=Total Assistance 5=Supervision or Setup 2=Maximal Assistance 6=Modified [place] 3=Moderate Assistance 7=Complete [place] Transfers (B, C, W/C) (FIM): 7 Scootin Rollin Supine to/from Sit: 7 Sit to/from Stand: 7 Gait Mode of Locomotion: Walk Anticipated Mode of Locomotion: Walk Gait (FIM): 7 Distance (FIM): 3=150 ft Distance: 350' Gait Level of Assist: 7 Gait Assistive Device: None Comments/Gait Description safe and functional/no deviation Balance Sitting Static: Normal Sitting Dynamic: Normal Standing Static: Normal Standing Dynamic: Normal Assessment/Needs 62 y.o. male, is currently at [facility] with all gross motor skills and does not require skilled therapy intervention. Patient declined use of FWW for safety concerns and has been instructed to wear [place] collar as per Dr. lee. Patient voices understanding. Rehab Potential: Fair Post Rehab Potential-Barriers: noncompliance PT Plan Treatment/Plan Treatment Plan: Discontinue PT, goals met Treatment Plan: Other Treatment Duration: Mar 10, 2018 Frequency: 1 time per week Estimated Hrs Per Day: .25 hour per day Patient and/or Family Agrees t: Yes Time/GCodes Time In: 909 Time Out: 920 Total Billed Treatment Time: 11 Total Billed Treatment 1 visit EVLowC 11 min G Codes Necessary: No (medicaid) LAVON LAMAS PT Mar 10, 2018 10:06
[2018-03-10 12:00] VITALS: BP 119/57
--- NOTE | 2018-03-10 13:50 | Occupational Therapy Eval ---
OT Evaluation-General/PLF Medical Diagnosis Admission Date Mar 09, 2018 at 13:48 Medical Diagnosis: weakness/C2 fracture Onset Date: Mar 09, 2018 Therapy Diagnosis Therapy Diagnosis: decr self care Height/Weight Height (Feet): 6 Height (Inches): 0.00 Weight (Pounds): 174 Weight (Ounces): 1.0 Precautions Precautions/Isolations: Fall Prevention, Standard Precautions Safety Interventions: None Referral Physician: Jung Referral Reason: Evaluation/Treatment Medical History Pertinent Medical History: Arthritis, COPD, Heart Failure, HTN, Post Polio Syndrome, Smoking Additional Medical History Metastatic lung cancer, diagnosed 05/18. Chemo. Asthma, pneumonia, sleep apnea. Post polio with left sided deficits. Seizure disorder. DDD. Spinal stenosis Current History Pt reported multiple falls over past few days. fell and hit neck on ottoman. Has Type III odontoid fx. DJD Reviewed History: Yes Social History Home: Single Level Current Living Status: Other Family ADL-Prior Level of Function Therapy Code Descriptions/Definitions Functional [place] Measure: 0=Not Assessed/NA 4=Minimal Assistance 1=Total Assistance 5=Supervision or Setup 2=Maximal Assistance 6=Modified [place] 3=Moderate Assistance 7=Complete [place] Therapy Quality Codes: 6 Independent with activity with or without an assistive device 5 Patient requires set up or clean up by helper. Patient completes activity by themselves 4 Supervision or touching assist (CGA). [place] provide cues , steadying assist 3 The helper provides less than half the effort to complete the activity 2 The helper provides more than half the effort to complete the activity 1 Dependent. The helper does all the effort to complete an activity 7 Patient refused to complete or attempt activity 9 The patient did not perform the activity before the current illness or injury 88 Not attempted due to Medical conditions or safety concerns Functional Abilities and Goals: Independent: Patient completed the activities by him/herself, with or without an assistive device, with no assistance from a helper. Needed Some Help: Patient needed partial assistance from another person to complete activities. Dependent: A helper completed the activities for the patient. Unknown: Not Applicable: ADL PLOF Comments Pt reported that he was previously able to manage all of his basic self care needs. 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 He is currently on disability because he can't mow while on oxygen 21/10. Self Care: Independent Functional Cognition: Independent OT Current Status Subjective Pt seen in room, up in bed, finishing lunch. Pain reported 0/10. [place] collar on. Appearance Alert, cooperative Mental Status/Objective Attachments: IV, Oxygen, Telemetry Current Hand Dominance: Right Upper Extremity ROM R UE WFL. L UE with contractures at end ranges but used as an assist. Upper Extremity Strength R UE WFL. L not tested ADL-Treatment ADL-Current Pt was feeding himself without help. He said that he was taking himself to the bathroom and not having any problems getting on/off toilet. He walked independently with PT earlier this date. Pt education to consider putting a chair in his bathtub to prevent him falling while he is bathing. Also bath mat. Also suggested that he sit down to put pants on/off rather than step out of them. He said that the idea of the chair in the shower was the best thing he'd heard all day. He verbalized that he will have his girlfriend help him of he has any concerns about his safety. He also said that he felt much better today and that his medication didn't make him feel "drunk". Pt left up in bed, all needs met. No other skilled needs identified. Therapy Code Descriptions/Definitions Functional [place] Measure: 0=Not Assessed/NA 4=Minimal Assistance 1=Total Assistance 5=Supervision or Setup 2=Maximal Assistance 6=Modified [place] 3=Moderate Assistance 7=Complete [place] Therapy Quality Codes: 6 Independent with activity with or without an assistive device 5 Patient requires set up or clean up by helper. Patient completes activity by themselves 4 Supervision or touching assist (CGA). [place] provide cues , steadying assist 3 The helper provides less than half the effort to complete the activity 2 The helper provides more than half the effort to complete the activity 1 Dependent. The helper does all the effort to complete an activity 7 Patient refused to complete or attempt activity 9 The patient did not perform the activity before the current illness or injury 88 Not attempted due to Medical conditions or safety concerns Education OT Patient Education: Modified ADL techniques, Purpose of tx/functional activities, Rehab process, Safety issues, Transfer techniques Teaching Recipient: Patient Teaching Methods: Discussion Response to Teaching: Verbalize Understanding OT Usp Goals Usp Goals Pt verbalize understanding of safety techniques for bathing and lower body dressing. Goal met. OT Education/Plan Problem List/Assessment Assessment: Impaired Self-Care Skills, Restricted Funct UE ROM (L) Pt would benefit from education on safety techniques for home after admission for odontoid fracture. Discharge Recommendations Plan/Recommendations: Discharge/Goals Met Therapy D/C Recommendations: Home w/ Family Support Treatment Plan/Plan of Care Treatment,Training & Education: Yes Patient would benefit from OT for education, treatment and training to promote independence in ADL's, mobility, safety and/or upper extremity function for ADL' s. Plan of Care: ADL Retraining Treatment Duration: Mar 10, 2018 Frequency: 1 time per week Estimated Hrs Per Day: Other (DC OT) Rehab Potential: Fair Time/GCodes Start Time: 13:05 Stop Time: 13:25 Total Time Billed (hr/min): 20 Billed Treatment Time visit, 20 minutes evaluation low intensity G Codes Necessary: No (medicaid) KEELY TAMAYO OT Mar 10, 2018 13:50
[2018-03-10] MEDS: MELOXICAM 7.5 MG (MOBIC) TABLET PO SCH (16:01)
[2018-03-10 16:10] VITALS: BP 116/71
[2018-03-10 19:10] VITALS: BP 144/70
[2018-03-10] MEDS: GABAPENTIN 300 MG (NEURONTIN) CAP PO SCH (22:51)
[2018-03-11] VITALS: BP 128/74
[2018-03-11] MEDS: lamoTRIgine 25 MG (LaMICtal) TAB PO SCH ×2 (02:59→16:19)
[2018-03-11] MEDS: carBAMazepine 200 MG (TEGretol) TAB PO SCH ×4 (02:59→23:02)
[2018-03-11] MEDS: ATORVASTATIN 10 MG (LIPITOR) TABLET PO SCH (02:59)
[2018-03-11] MEDS: lisINopril 20 MG (PRINIVIL) TABLET PO SCH (02:59)
[2018-03-11 03:00] VITALS: BP 132/73
[2018-03-11] MEDS: CATHETER FLUSH 10 ML SYR IV SCH ×3 (05:38→23:03)
[2018-03-11] MEDS: RT-ALBUTEROL SULF 2.5 MG/3 ML PRE-MIX VIAL IH PRN ×2 (07:39→19:23)
[2018-03-11] MEDS: RT-ADVAIR HFA 115/21 MCG PER PUFF IH SCH ×2 (07:46→19:23)
[2018-03-11] MEDS: UMECLIDINIUM BROMIDE (INCRUSE ELLIPTA) 7'S IH SCH (07:49)
[2018-03-11 07:53] VITALS: BP 149/69
--- NOTE | 2018-03-11 08:14 | Progress Note (SOAP) ---
Subjective Time Seen by a Provider: 08:11 Subjective/Events-last exam patient doing better. Patient scared about going home today. Patient frightened about falling after taking medicine. To monitor 1 more day. To do a Tegretol and Dilantin level. Objective Exam Vital Signs Date Time Temp Pulse Resp B/P (MAP) Pulse Ox O2 Delivery O2 Flow Rate FiO2 03/11/18 07:53 97.4 59 20 149/69 (95) 98 Nasal Cannula 3.00 03/11/18 07:49 97 Nasal Cannula 3.00 03/11/18 07:46 97 Nasal Cannula 3.00 03/11/18 07:39 97 Nasal Cannula 3.00 03/11/18 03:00 97.3 60 20 132/73 (92) 100 Nasal Cannula 3.00 03/11/18 01:00 78 03/11/18 00:00 98.0 78 20 128/74 (92) 97 Nasal Cannula 3.00 03/10/18 21:34 95 Nasal Cannula 3.00 03/10/18 21:34 Nasal Cannula 3.00 03/10/18 19:52 Nasal Cannula 3.00 03/10/18 19:10 97.6 61 18 144/70 (94) 97 Nasal Cannula 3.00 03/10/18 19:00 65 03/10/18 16:10 97.1 67 18 116/71 (86) 98 Nasal Cannula 3.00 03/10/18 13:00 72 03/10/18 12:00 96.8 65 18 119/57 (77) 95 Nasal Cannula 3.00 03/10/18 09:04 Nasal Cannula 3.00 03/10/18 09:03 Nasal Cannula 3.00 03/10/18 08:56 94 Nasal Cannula 3.00 I & O 03/11/18 07:00 Intake Total 1875 ml Output Total 1700 ml Balance 175 ml Capillary Refill : Less Than 3 Seconds General Appearance: No Apparent Distress, Thin HEENT: Normal ENT Inspection Neck: Other (wearing cervical collar) Respiratory: No Accessory Muscle Use, No Respiratory Distress, Decreased Breath Sounds Cardiovascular: Regular Rate, Rhythm, No Murmur Gastrointestinal: non tender, soft Assessment/Plan Assessment/Plan Assess & Plan/Chief Complaint fall Odontoid fracture and C2 fracture. COPD Lung cancer. Seizure.. patient high risk for surgery of odontoid fracture Clinical Quality Measures Admission Status Admission Dx Cervical fracture. Type III odontoid fracture. C2 fracture. Weakness. Falling. COPD. Lung cancer with metastasis. Hypertension. Seizures. Hyperlipidemia DVT/VTE Risk/Contraindication: Risk Factor Score Per Nursin RFS Level Per Nursing on Admit: 2=Moderate AMANDEEP GENAO DO Mar 11, 2018 08:14
[2018-03-11] MEDS: PHENYTOIN 100 MG (DILANTIN) CAP PO SCH ×3 (09:21→23:02)
[2018-03-11] MEDS: amLODIPine 5 MG (NORVASC) TAB PO SCH (09:21)
[2018-03-11] MEDS: GABAPENTIN 600 MG (NEURONTIN) TAB PO SCH ×2 (09:21→16:19)
[2018-03-11] MEDS: rOPINIRole 0.25 MG (REQUIP) TAB PO SCH ×2 (09:34→23:02)
[2018-03-11] MEDS ORDERED: LEVOFLOXACIN 500 MG TAB (LEVAQUIN) PO SCH (11:00)
[2018-03-11 11:46] VITALS: BP 146/84
[2018-03-11 15:55] VITALS: BP 137/72
[2018-03-11] MEDS: MELOXICAM 7.5 MG (MOBIC) TABLET PO SCH (16:18)
[2018-03-11 19:50] VITALS: BP 128/62
[2018-03-11] MEDS: GABAPENTIN 300 MG (NEURONTIN) CAP PO SCH (23:02)
[2018-03-12 00:53] VITALS: BP 146/75
[2018-03-12] MEDS: lamoTRIgine 25 MG (LaMICtal) TAB PO SCH (03:15)
[2018-03-12] MEDS: ATORVASTATIN 10 MG (LIPITOR) TABLET PO SCH (03:15)
[2018-03-12] MEDS: carBAMazepine 200 MG (TEGretol) TAB PO SCH ×2 (03:15→08:32)
[2018-03-12] MEDS: lisINopril 20 MG (PRINIVIL) TABLET PO SCH (03:15)
[2018-03-12 04:00] VITALS: BP 152/71
[2018-03-12] MEDS: CATHETER FLUSH 10 ML SYR IV SCH (05:56)
[2018-03-12] MEDS: RT-ALBUTEROL SULF 2.5 MG/3 ML PRE-MIX VIAL IH PRN (07:27)
[2018-03-12] MEDS: RT-ADVAIR HFA 115/21 MCG PER PUFF IH SCH (07:27)
[2018-03-12] MEDS: UMECLIDINIUM BROMIDE (INCRUSE ELLIPTA) 7'S IH SCH (07:28)
[2018-03-12 07:31] VITALS: BP 161/76
--- NOTE | 2018-03-12 08:05 | Progress Note (SOAP) ---
Subjective Time Seen by a Provider: 08:02 Subjective/Events-last exam Patient feeling much more comfortable today. Patient had a good day and night last night. Plan to discharge today. Patient states isn't where his cervical collar. Palpation of consequences if he doesn't Objective Exam Vital Signs Date Time Temp Pulse Resp B/P (MAP) Pulse Ox O2 Delivery O2 Flow Rate FiO2 03/12/18 07:31 97.3 60 20 161/76 (104) 98 Nasal Cannula 3.00 03/12/18 07:29 96 Nasal Cannula 3.00 03/12/18 07:29 96 Nasal Cannula 3.00 03/12/18 07:28 96 Nasal Cannula 3.00 03/12/18 04:00 97.7 69 18 152/71 (98) 98 Nasal Cannula 3.00 03/12/18 01:00 63 03/12/18 00:53 97.3 64 18 146/75 (98) 97 Nasal Cannula 3.00 03/11/18 20:00 97 Nasal Cannula 3.00 03/11/18 19:50 97.3 69 16 128/62 (84) 97 Nasal Cannula 3.00 03/11/18 19:31 96 Nasal Cannula 3.00 03/11/18 19:23 96 Nasal Cannula 3.00 03/11/18 19:00 72 03/11/18 15:55 97.9 68 18 137/72 (93) 97 Nasal Cannula 3.00 03/11/18 12:57 62 03/11/18 11:46 97.2 60 20 146/84 (104) 99 Nasal Cannula 3.00 I & O 03/12/18 07:00 Intake Total 2930 ml Output Total 1550 ml Balance 1380 ml Capillary Refill : Less Than 3 SecondsLess Than 3 Seconds General Appearance: No Apparent Distress, Thin HEENT: Normal ENT Inspection Neck: Other (Cervical collar) Respiratory: No Accessory Muscle Use, No Respiratory Distress, Decreased Breath Sounds Gastrointestinal: non tender, soft Results Lab Laboratory Tests 03/11/18 09:35: Phenytoin (Dilantin) Level 16.0, Carbamazepine (Tegretol) Level 5.0 Assessment/Plan Assessment/Plan Assess & Plan/Chief Complaint fall Odontoid fracture and C2 fracture. COPD Lung cancer. Seizure.. patient high risk for surgery of odontoid fracture Final Diagnosis Patient doing good. Patient be discharged today. Fall. Weakness. Odontoid and C2 fracture. COPD. Lung cancer. History of tobaccoism. To see patient next Friday in office Clinical Quality Measures Admission Status Admission Dx Cervical fracture. Type III odontoid fracture. C2 fracture. Weakness. Falling. COPD. Lung cancer with metastasis. Hypertension. Seizures. Hyperlipidemia DVT/VTE Risk/Contraindication: Risk Factor Score Per Nursin RFS Level Per Nursing on Admit: 2=Moderate AMANDEEP GENAO DO Mar 12, 2018 08:05
[2018-03-12] MEDS: rOPINIRole 0.25 MG (REQUIP) TAB PO SCH (08:32)
[2018-03-12] MEDS: GABAPENTIN 600 MG (NEURONTIN) TAB PO SCH (08:32)
[2018-03-12] MEDS: PHENYTOIN 100 MG (DILANTIN) CAP PO SCH (08:33)
[2018-03-12] MEDS: amLODIPine 5 MG (NORVASC) TAB PO SCH (08:33)
[2018-03-12 11:29] VITALS: BP 153/82
[2018-03-12 14:37] VITALS: BP 153/82
--- NOTE | 2018-03-13 07:28 | Clinic Account Progress/Dx ---
Clinic Account Progress/Dx DIAGNOSIS: Time Seen by Provider: 07:27 Fall. Type III odontoid fracture. Fractures C2. COPD. Lung cancer. Hypertension. Leukopenia. Anemia. Hyponatremia. Seizure. History of metastatic lung cancer area Weakness. Hyperlipidemia AMANDEEP GENAO DO Mar 13, 2018 07:28
[2018-03-17] MEDS ORDERED: ONDA4TAB11 PO (08:48)
== END 2018-03-12 08:05 | disposition home or self-care (01) ==
LOC: EDUNIT# 10:27 → ER 10:28 → UNDOADMOB 13:48 → 4TH 13:48 → UNDODISOB 03-12 14:30
PROVIDERS: ADMIT Family Medicine; ATTEND Family Medicine
DX: S12.14XA Type III traumatic spondylolisthesis of second cervical vertebra, initial encounter for closed fracture (principal); M85.48 Solitary bone cyst, other site; J44.9 Chronic obstructive pulmonary disease, unspecified; J45.909 Unspecified asthma, uncomplicated; G47.30 Sleep apnea, unspecified; E78.5 Hyperlipidemia, unspecified; I10 Essential (primary) hypertension; G40.909 Epilepsy, unspecified, not intractable, without status epilepticus; G14 Postpolio syndrome; M50.31 Other cervical disc degeneration, high cervical region; M50.322 Other cervical disc degeneration at C5-C6 level; M50.323 Other cervical disc degeneration at C6-C7 level; M48.02 Spinal stenosis, cervical region; D64.9 Anemia, unspecified; E87.1 Hypo-osmolality and hyponatremia; C34.90 Malignant neoplasm of unspecified part of unspecified bronchus or lung; C79.9 Secondary malignant neoplasm of unspecified site; R53.1 Weakness; W18.09XA Striking against other object with subsequent fall, initial encounter; Y92.019 Unspecified place in single-family (private) house as the place of occurrence of the external cause; Z87.891 Personal history of nicotine dependence; Z99.81 Dependence on supplemental oxygen
CPT/HCPCS: 36415; 70450; 71045; 72125; 72141; 80053; 80156; 80185; 81000; 84484; 85025; 93005; 94640; 94760; 96361; 96374; G0378

== ENCOUNTER 2018-03-24 18:44 | Inpatient (IN) | payer MEDICAID ==
[~2018-03-24] VITALS: Ht 182.9 cm; Wt 77.7 kg
[~2018-03-24 18:44] MED LIST changes: +EYE DROP; +FLUT12AE4 INH; +LEVO500T80 PO; +OMEP20CA12 PO; +ONDA4TAB11 PO
[2018-03-24] MEDS ORDERED: LACTATED RINGERS 1,000 ML IV ONE (18:47)
[2018-03-24] MEDS ORDERED: SCOPOLAMINE 1.5 MG (TRANSDERM-SCOP) PATCH ONE (18:52)
[2018-03-24] MEDS ORDERED: ONDANSETRON 4 MG/2 ML (SDV) Z0FRAN IVP ONE ×2 (19:00→20:00)
[2018-03-24] MEDS ORDERED: SCOPOLAMINE 1.5 MG (TRANSDERM-SCOP) PATCH TD ONE (19:00)
[2018-03-24 19:02] LABS: BASOPHILS % (AUTO) 1 % (0-10); EOSINOPHILS % (AUTO) 0 % (0-10); HEMATOCRIT 31 % (40-54); HEMOGLOBIN 10.4 G/DL (13.3-17.7); LYMPHOCYTES # (AUTO) 0.9 X 10^3 (1.0-4.0); LYMPHOCYTES % (AUTO) 19 % (12-44); MEAN CORPUSCULAR HEMOGLOBIN 30 PG (25-34); MEAN CORPUSCULAR HGB CONC 34 G/DL (32-36); MEAN CORPUSCULAR VOLUME 90 FL (80-99); MEAN PLATELET VOLUME 8.4 FL (7.4-10.4); MONOCYTES # (AUTO) 0.9 X 10^3 (0.0-1.0); MONOCYTES % (AUTO) 20 % (0-12); NEUTROPHILS # (AUTO) 2.8 X 10^3 (1.8-7.8); NEUTROPHILS % (AUTO) 60 % (42-75); PLATELET COUNT 175 10^3/uL (130-400); RED BLOOD COUNT 3.42 10^6/uL (4.35-5.85); RED CELL DISTRIBUTION WIDTH 14.7 % (10.0-14.5); WHITE BLOOD COUNT 4.6 10^3/uL (4.3-11.0)
--- OUTSIDE RECORDS SUMMARY | 2018-03-24 19:10 | XMS REPORT | Clinical Summary ---
Author Author [facility] Organization [facility] Address Unknown Phone Unavailable Care Team Providers Care Leather Polisher Name Role Phone Efra Valentino MD Unavailable Source Comments Some departments are not documenting in the electronic medical record. If you do not see the information that you expected, contact Release of Information in the Health Information Management department at [phone] for further assistance in locating additional records.[facility] Allergies Comments Active Allergy Reactions Severity Noted Date Contraindication to some of his medications Aspirin SEE COMMENTS 10/22/2013 Medications End Date Status Medication Sig Dispensed Refills Start Date Active tiotropium (SPIRIVA WITH Inhale 18 mcg 0 HANDIHALER) 18 mcg by mouth capsule for inhaler daily. Active FLUTICASONE/SALMETEROL Inhale by 0 (ADVAIR DISKUS IN) mouth twice daily. Active MELOXICAM (MOBIC PO) Take by 0 mouth daily. Active ALBUTEROL IN Inhale by 0 mouth four times daily. Active ROSUVASTATIN CALCIUM Take by 0 (CRESTOR PO) mouth daily. Active gabapentin (NEURONTIN) Take 1 Cap by 180 Cap 11 300 mg capsule mouth daily. 5 Taking 6 tabs daily Active lamoTRIgine (LAMICTAL) Take 1 Tab by 90 Tab 6 100 mg tablet mouth three 5 times daily. Active lamoTRIgine (LAMICTAL) 25 Take 1 Tab by 90 Tab 6 mg tablet mouth three 5 times daily. Active phenytoin SR (DILANTIN) Take 1 Cap by 120 Cap 6 100 mg capsule mouth four 5 times daily. Active gabapentin (NEURONTIN) TAKE 6 180 Cap 1 300 mg capsule TABLETS BY 6 MOUTH DAILY Active EPITOL 200 mg tablet TAKE ONE 90 Tab 2 TABLET BY 6 MOUTH THREE TIMES A DAY Active Problems Problem Noted Date Seizures 10/22/2013 Hemiparesis 10/22/2013 Asthma 10/22/2013 COPD (chronic obstructive pulmonary disease) 10/22/2013 Hyperlipidemia 10/22/2013 Weight loss 10/22/2013 Family History Medical History Relation Name Comments Hypertension Father Relation Name Status Comments Father Social History Date Tobacco Use Types Packs/Day Years Used Current Every Day Smoker Cigarettes 1.5 46 Smokeless Tobacco: Never Used Alcohol Use Drinks/Week oz/Week Comments No Sex Assigned at Date Recorded Not on file Industry Job Start Date Occupation Not on file Not on file Not on file Travel End Travel History Travel Start No recent travel history available. Last Filed Vital Signs Time Taken Vital Sign Reading 10/28/2014 11:59 AM CDT Blood Pressure 153/85 10/28/2014 11:59 AM CDT Pulse 58 10/22/2013 10:21 AM CDT Temperature 36.8 C (98.3 F) - Respiratory Rate - - Oxygen Saturation - - Inhaled Oxygen - Concentration 10/28/2014 11:59 AM CDT Weight 77.8 kg (171 lb 8 oz) 10/28/2014 11:59 AM CDT Height 188 cm (6' 2") 10/28/2014 11:59 AM CDT Body Mass Index 22.02 Plan of Treatment Health Maintenance Due Date Last Done Comments HEPATITIS C SCREENING 1953 PHYSICAL (COMPREHENSIVE) 1960 EXAM HIV SCREENING 1968 DTAP/TDAP VACCINES (1 - 07/17/1971 Tdap) COLORECTAL CANCER 07/17/2003 SCREENING SHINGLES RECOMBINANT 07/17/2003 VACCINE (1 of 2) INFLUENZA VACCINE 10/29/2017 Results Not on filefrom Last 3 Months
[2018-03-24 19:14] LABS: PROTHROMBIN TIME PATIENT 13.3 SEC (12.2-14.7)
[2018-03-24 19:21] LABS: ALANINE AMINOTRANSFERASE 6 U/L (0-55); ALKALINE PHOSPHATASE 156 U/L (40-136); AMYLASE 28 U/L (25-125); BILIRUBIN,TOTAL 0.3 MG/DL (0.1-1.0); BUN/CREATININE RATIO 18; CALCIUM 9.2 MG/DL (8.5-10.1); CARBON DIOXIDE 25 MMOL/L (21-32); CHLORIDE 94 MMOL/L (98-107); CREATININE SERUM 0.73 MG/DL (0.60-1.30); GFR ESTIMATED > 60; GLUCOSE 102 MG/DL (70-105); LIPASE 6 U/L (8-78); POTASSIUM 4.2 MMOL/L (3.6-5.0); SODIUM 131 MMOL/L (135-145); TOTAL PROTEIN 7.1 GM/DL (6.4-8.2)
[2018-03-24 19:28] LABS: ACETAMINOPHEN < 10 UG/ML (10-30)
--- NOTE | 2018-03-24 19:33 | Diagnostic Imaging Report ---
INDICATION: Slurred speech COMPARISON: 03/09/2018 TECHNIQUE: Single frontal radiograph of the chest dated 03/24/2018. FINDINGS: Right-sided Port-A-Cath is again identified. The cardiac silhouette is stable. No significant pulmonary vascular congestion. Right hilar and right basilar streaky interstitial opacities are again identified, stable from the prior examination. Mild left basilar interstitial opacities are again identified and stable. No new focal pulmonary opacity. No pleural effusion. No pneumothorax. Degenerative changes within osseous structures without acute osseous abnormality. IMPRESSION: Stable appearing examination demonstrating persistent right perihilar and bibasilar atelectasis and/or pneumonitis, unchanged from prior examinations. Dictated by: Dictated on workstation # [id number]
[2018-03-24 19:41] LABS: TSH (THYROID ANALYZER) 0.65 UIU/ML (0.35-4.94)
--- NOTE | 2018-03-24 19:52 | Diagnostic Imaging Report ---
PROCEDURE: CT head wo r/o stroke. TECHNIQUE: Multiple contiguous axial images were obtained through the brain without the use of intravenous contrast. INDICATION: Slurred speech, stroke COMPARISON: 03/09/2018 FINDINGS: No intracranial hemorrhage. No intracranial mass, mass effect, or uncal herniation. Asymmetric prominence of the right lateral ventricle is again identified, a stable finding. Minimal rightward midline shift, stable from the prior examination. No definite CT evidence of an acute ischemic infarction. Ovoid lesion within the right parietal subcutaneous tissues again identified, favored to relate to a sebaceous cyst. Bilateral ocular lenses are absent. The paranasal sinuses are clear. The calvarium is intact. IMPRESSION: Stable examination without acute intracranial abnormality. If there remains clinical concern for underlying recent infarction, further evaluation with MRI of the brain could be obtained. Dictated by: Dictated on workstation # [id number]
--- NOTE | 2018-03-24 19:54 | ED General ---
General Chief Complaint: General Problems/Pain Stated Complaint: SLURRED SPEECH Nursing Triage Note: PT ARRIVED PER EMS, PT IS ALERT, SPEECH IS SLURRED, PT IS DIFFICULT TO UNDERSTAND AT THIS X. PT DENIES PAIN. PT IS WEARING A C-COLLAR D/T FX NECK ON MAR 09. PT GIRLFREIND STATES IS HAVING JERKING MOTIONS THEN IS DIFFICULT TO UNDERSTAND. PT HAS SEIZURE DISORDER. PT HAS CA LUNG AND IS GETTING CHEMO TX WEEKLY. EMS STATES PT HAS RECENT HX OF THESE SYMPTOMS Nursing Sepsis Screen: No Definite Risk Source of Information: Patient, Old Records History of Present Illness Date Seen by Provider: Mar 24, 2018 Time Seen by Provider: 18:43 Initial Comments PT ARRIVES VIA EMS FROM HOME PT HAS ONGOING ISSUES WITH PERIODIC SLURRED SPEECH AND JERKING/TWITCHING/ SHAKING. EMS WAS CONTACTED BY GIRLFRIEND SINDHU BECAUSE IT WAS WORSE THAN NORMAL. PT HAS BEEN SEEN MULTIPLE TIMES FOR THIS ISSUE AND THOUGHT IT MIGHT BE RELATED TO MEDICATIONS PT HAS HISTORY OF SEIZURES SINCE AGE 6--IS ON DILANTIN, TEGRETOL, LAMOTRIGINE, GABAPENTIN PT ALSO HAS HISTORY OF METASTATIC LUNG CANCER TO BONE AND IS CURRENTLY RECEIVING WEEKLY CHEMO ADDITIONALLY, PT HAS HISTORY OF POLIO WITH LEFT SIDED WEAKNESS AND CONTRACTURES PT C/O DIZZINESS AND NAUSEA /GAGGING DRY HEAVES ON ARRIVAL, AND SPIT UP SMALL AMOUNT OF YELLOW SPUTUM--NOT EMESIS PT'S SPEECH IS THICK TONGUED ON ARRIVAL AND DIFFICULT TO UNDER STAND AT TIMES SHORTLY AFTER ARRIVAL, PT BEGAN TO HAVE SOME POSTURING, WITH TONIC FLEXION OF ARMS AND HANDS, WITH TONGUE THRUSTING AND COMPLETELY UNINTELLIGIBLE SPEECH/ GUTTERAL NOISES, AND PT NOTED TO HAVE NYSTAGMUS AND WAS COUGHING AND GAGGING AND DRY HEAVING AND DROOLING LASTED APPROXIMATELY 1 MINUTE. NO INCONTINENCE NO LOSS OF CONSCIOUSNESS PT DID NOT APPEAR POST ICTAL SPEECH QUICKLY IMPROVED PT STATES " I KNOW ONE THING-I'M DEHYDRATED" PCP: DR. GENAO ONCOLOGIST: DR. PRICE Allergies and Home Medications Allergies Coded Allergies: aspirin (Unverified Allergy, Mild, DOES NOT WORK WELL W/ OTHER MEDS, 03/09) ibuprofen (Unverified Allergy, Mild, 03/09/18) Home Medications Albuterol Sulfate 2.5 Mg/3 Ml Vial.neb, 2.5 MG NEB 5XD PRN for SHORTNESS OF BREATH, (Reported) Albuterol Sulfate 1 Puff Puff, 2 PUFF IH Q6H PRN for SHORTNESS OF BREATH, ( Reported) 1 PUFF = 90 MCG Amlodipine Besylate 5 Mg Tablet, 5 MG PO 0800, (Reported) Atorvastatin Calcium 10 Mg Tablet, 10 MG PO 0300, (Reported) Carbamazepine 200 Mg Tablet, 200 MG PO 0800,2300,0300, (Reported) Carbamazepine 200 Mg Tablet, 400 MG PO 1500, (Reported) TAKES 2 (200 MG) TABLETS Fluticasone/Salmeterol 12 Gm Hfa.aer.ad, 2 PUFF INH BID, (Reported) Gabapentin 300 Mg Capsule, 300 MG PO 2300, (Reported) Gabapentin 600 Mg Tablet, 600 MG PO 0800,1500, (Reported) Hydrocodone/Acetaminophen 1 Each Tablet, 1 TAB PO Q6H PRN for PAIN-MODERATE, ( Reported) Lamotrigine 100 Mg Tablet, 100 MG PO 1500,2300, (Reported) Lamotrigine 25 Mg Tablet, 25 MG PO 1500,0300, (Reported) Levofloxacin 500 Mg Tablet, 500 MG PO MoWeFr, (Reported) Lisinopril 20 Mg Tablet, 20 MG PO 0300, (Reported) Omeprazole 20 Mg Capsule.dr, 20 MG PO DAILY PRN for HEARTBURN, (Reported) Ondansetron 4 Mg Tab.rapdis, 4 MG PO TID PRN for NAUSEA/VOMITING-1ST LINE, ( Reported) Phenytoin Sodium Extended 100 Mg Capsule, 200 MG PO 0800,1500, (Reported) TAKES 2 (100 MG) CAPSULES Phenytoin Sodium Extended 100 Mg Capsule, 100 MG PO 2300, (Reported) Tiotropium [place] 1 Inh Aerp, 1 CAP IH DAILY, (Reported) Past Cwxcwou-Krtpxe-Xskvkx Hx Patient Social History Alcohol Use: Denies Use Recreational Drug Use: Yes (not current, 15 years ago-ETOH and PO drugs) Smoking Status: Former Smoker Type Used: Cigars Former Smoker, Quit: Feb 12, 2017 2nd Hand Smoke Exposure: No (quit in 2017) Recent Foreign Travel: No Contact w/Someone Who Travel: No Recent Infectious Disease Expo: No Recent Hopitalizations: Yes Immunizations Up To Date Tetanus Booster (TDap): Unknown PED Vaccines UTD: Yes Seasonal Allergies Seasonal Allergies: Yes Past Medical History Surgeries: Yes Gallbladder Respiratory: Yes (METASTATIC LUNG CANCER DX 05/2017/COPD) Asthma, Pneumonia, Sleep Apnea, COPD Currently Using CPAP: No Currently Using BIPAP: Yes Cardiac: Yes High Cholesterol, Hypertension Neurological: Yes (post polio syndrome with left-sided deficits) Seizure Disorder Reproductive Disorders: No Sexually Transmitted Disease: No HIV/AIDS: No Genitourinary: No Gastrointestinal: No Musculoskeletal: Yes Arthritis, Fractures Endocrine: No HEENT: No Loss of Vision: Denies Hearing Impairment: Denies Cancer: Yes Lung Did You Recieve Any Treatments: Yes What Type of Treatment Did You: Chemotherapy Psychosocial: No Integumentary: No Blood Disorders: No Adverse Reaction/Blood Tranf: No Family Medical History Hypercholesterolemia 19 FATHER Hypertension 19 FATHER No Pertinent Family Hx, Heart Disease Physical Exam Vital Signs Vital Signs - First Documented 03/24/18 18:45 Temp 98.4 Pulse 96 Resp 18 B/P (MAP) 126/81 (96) Pulse Ox 99 O2 Delivery Nasal Cannula O2 Flow Rate 3.00 Capillary Refill : Less Than 3 Seconds Height, Weight, BMI Height: 6'2.00" Weight: 175lbs. 4.8oz. 79.834694vr; 22.8 BMI Method:Estimated Procedures/Interventions Date of ETT Placement: Mar 09, 2017 Time of ETT Placement: 1811 Suture Size: 5-0 Progress/Results/Core Measures Suspected Sepsis Recent Fever Within 48 Hours: No Infection Criteria Present: None New/Unexplained Altered Menta: No Sepsis Screen: No Definite Risk SIRS Temperature:98.4 Pulse: 96 Respiratory Rate: 18 Laboratory Tests 03/24/18 18:50: White Blood Count 4.6 Blood Pressure 126 /81 Mean: 96 Laboratory Tests 03/24/18 18:50: Creatinine 0.73, INR Comment 1.0, Platelet Count 175, Total Bilirubin 0.3 Results/Orders Lab Results Laboratory Tests Test 03/24/18 18:50 Range/Units White Blood Count 4.6 4.3-11.0 10^3/uL Red Blood Count 3.42 L 4.35-5.85 10^6/uL Hemoglobin 10.4 L 13.3-17.7 G/DL Hematocrit 31 L 40-54 % Mean Corpuscular Volume 90 80-99 FL Mean Corpuscular Hemoglobin 30 25-34 PG Mean Corpuscular Hemoglobin Concent 34 32-36 G/DL Red Cell Distribution Width 14.7 H 10.0-14.5 % Platelet Count 175 130-400 10^3/uL Mean Platelet Volume 8.4 7.4-10.4 FL Neutrophils (%) (Auto) 60 42-75 % Lymphocytes (%) (Auto) 19 12-44 % Monocytes (%) (Auto) 20 H 0-12 % Eosinophils (%) (Auto) 0 0-10 % Basophils (%) (Auto) 1 0-10 % Neutrophils # (Auto) 2.8 1.8-7.8 X 10^3 Lymphocytes # (Auto) 0.9 L 1.0-4.0 X 10^3 Monocytes # (Auto) 0.9 0.0-1.0 X 10^3 Eosinophils # (Auto) 0.0 0.0-0.3 10^3/uL Basophils # (Auto) 0.0 0.0-0.1 10^3/uL Prothrombin Time 13.3 12.2-14.7 SEC INR Comment 1.0 0.8-1.4 Activated Partial Thromboplast Time 42 H 24-35 SEC Sodium Level 131 L 135-145 MMOL/L Potassium Level 4.2 3.6-5.0 MMOL/L Chloride Level 94 L 98-107 MMOL/L Carbon Dioxide Level 25 21-32 MMOL/L Anion Gap 12 5-14 MMOL/L Blood Urea Nitrogen 13 7-18 MG/DL Creatinine 0.73 0.60-1.30 MG/DL Estimat Glomerular Filtration Rate > 60 BUN/Creatinine Ratio 18 Glucose Level 102 70-105 MG/DL Calcium Level 9.2 8.5-10.1 MG/DL Corrected Calcium 9.2 8.5-10.1 MG/DL Magnesium Level 2.0 1.8-2.4 MG/DL Total Bilirubin 0.3 0.1-1.0 MG/DL Aspartate Amino Transf (AST/SGOT) 10 5-34 U/L Alanine Aminotransferase (ALT/SGPT) 6 0-55 U/L Alkaline Phosphatase 156 H 40-136 U/L Troponin I < 0.30 <0.30 NG/ML Total Protein 7.1 6.4-8.2 GM/DL Albumin 4.0 3.2-4.5 GM/DL Amylase Level 28 25-125 U/L Lipase 6 L 8-78 U/L TSH [place] Testing 0.65 0.35-4.94 UIU/ML Acetaminophen Level < 10 L 10-30 UG/ML Carbamazepine (Tegretol) Level 8.9 4.0-12.0 UG/ML Serum Alcohol < 10 <10 MG/DL My Orders Orders - CHUNG DOTY DO Ondansetron Injection (Zofran Injectio (03/24/18 19:00) Saline Lock/Iv-Start (03/24/18 18:47) Ekg Tracing (03/24/18 18:47) O2 (03/24/18 18:47) Monitor-Rhythm Ecg Trace Only (03/24/18 18:47) Acetaminophen (03/24/18 18:47) Alcohol (03/24/18 18:47) Amylase (03/24/18 18:47) Cbc With Automated Diff (03/24/18 18:47) Comprehensive Metabolic Panel (03/24/18 18:47) Drug Screen Stat (Urine) (03/24/18 18:47) Lipase (03/24/18 18:47) Magnesium (03/24/18 18:47) Protime With Inr (03/24/18 18:47) Partial Thromboplastin Time (03/24/18 18:47) Thyroid Analyzer (03/24/18 18:47) Troponin I (03/24/18 18:47) Ua Culture If Indicated (03/24/18 18:47) Ct Head Wo-R/O Stroke (03/24/18 18:47) Chest 1 View, Ap/Pa Only (03/24/18 18:47) Saline Lock/Iv-Start (03/24/18 18:47) Lactated Ringers (Lr 1000 Ml Iv Solution (03/24/18 18:47) Scopolamine Patch (Transderm-Scop Patch) (03/24/18 19:00) Scopolamine Patch (Transderm-Scop Patch) (03/24/18 18:52) Carbamazepine (Tegretol) (03/24/18 19:04) Dilantin (Phenytoin) (03/24/18 19:04) Medications Given in ED Current Medications Medications Dose Ordered Sig/Porfirio Route Start Time Stop Time Status Last Admin Dose Admin Lactated Ringer's 1,000 ml @ 0 mls/hr Q0M ONCE IV 03/24/18 18:47 03/24/18 18:51 DC 03/24/18 19:02 1,000 MLS/HR Ondansetron HCl 8 mg ONCE ONCE IVP 03/24/18 19:00 03/24/18 19:01 DC 03/24/18 19:03 8 MG Scopolamine 1.5 mg ONCE ONCE TD 03/24/18 19:00 03/24/18 19:01 DC 03/24/18 19:03 1.5 MG Vital Signs/I&O 03/24/18 03/24/18 18:45 18:45 Temp 98.4 Pulse 96 Resp 18 B/P (MAP) 126/81 (96) Pulse Ox 99 96 O2 Delivery Nasal Cannula O2 Flow Rate 3.00 3.00 Capillary Refill : Less Than 3 Seconds Blood Pressure Mean: 96 Departure Departure-Patient Inst. Referrals: AMANDEEP GENAO DO (PCP/Family) Primary Care Physician CHUNG DOTY DO Mar 24, 2018 19:54
[2018-03-24] MEDS ORDERED: PANTOPRAZOLE 40 MG (PROTONIX) VIAL IV ONE (20:00)
[2018-03-24] MEDS ORDERED: NS IV 1000 ML 1,000 ML IV ONE (20:17)
[2018-03-24 20:38] LABS: BILIRUBIN,URINE NEGATIVE (NEGATIVE); CLARITY,URINE CLEAR; COLOR,URINE YELLOW; GLUCOSE, URINE (UA) NEGATIVE (NEGATIVE); KETONES,URINE NEGATIVE (NEGATIVE); LEUKOCYTE ESTERASE ,URINE NEGATIVE (NEGATIVE); NITRITE,URINE NEGATIVE (NEGATIVE); PH,URINE 6 (5-9); PROTEIN,URINE NEGATIVE (NEGATIVE); UROBILINOGEN,URINE NORMAL (NORMAL)
[2018-03-24 20:44] LABS: SQUAMOUS EPITHELIAL CELL,UR 0-2 /HPF; WBC,URINE 0-2 /HPF
[2018-03-24 20:49] LABS: AMPHETAMINE SCREEN, URINE NEGATIVE (NEGATIVE); BARBITURATE SCREEN URINE POSITIVE (NEGATIVE); BENZODIAZEPINES SCREEN URINE NEGATIVE (NEGATIVE); CANNABINOID SCREEN, URINE NEGATIVE (NEGATIVE); COCAINE SCREEN URINE NEGATIVE (NEGATIVE); METHADONE STAT NEGATIVE (NEGATIVE); METHAMPHETAMINE SCREEN URINE S NEGATIVE (NEGATIVE); OPIATE SCREEN URINE NEGATIVE (NEGATIVE); OXYCODONE STAT NEGATIVE (NEGATIVE); PROPOXYPHENE STAT NEGATIVE (NEGATIVE); TRICYCLIC ANTIDEPRESSANTS SCRE NEGATIVE (NEGATIVE)
--- OUTSIDE RECORDS SUMMARY | 2018-03-24 21:35 | XMS REPORT | Clinical Summary ---
Author Author [facility] Organization [facility] Address Unknown Phone Unavailable Care Team Providers Care Actuarial Associate Name Role Phone Efra Valentino MD Unavailable Source Comments Some departments are not documenting in the electronic medical record. If you do not see the information that you expected, contact Release of Information in the Health Information Management department at [phone] for further assistance in locating additional records.[facility] Allergies Comments Active Allergy Reactions Severity [...]
[2018-03-24 22:15] VITALS: BP 165/73
[2018-03-24] MEDS: NS IV 1000 ML 1,000 ML IV SCH (23:00)
[2018-03-25] VITALS (8 sets, daily range): BP systolic 125–146; BP diastolic 65–80
[2018-03-25] MEDS: ATORVASTATIN 10 MG (LIPITOR) TABLET PO SCH (05:06)
[2018-03-25] MEDS: lisINopril 20 MG (PRINIVIL) TABLET PO SCH (05:06)
[2018-03-25 05:57] LABS: BASOPHILS % (AUTO) 1 % (0-10); EOSINOPHILS % (AUTO) 0 % (0-10); HEMATOCRIT 29 % (40-54); HEMOGLOBIN 9.7 G/DL (13.3-17.7); LYMPHOCYTES # (AUTO) 0.7 X 10^3 (1.0-4.0); LYMPHOCYTES % (AUTO) 18 % (12-44); MEAN CORPUSCULAR HEMOGLOBIN 31 PG (25-34); MEAN CORPUSCULAR HGB CONC 34 G/DL (32-36); MEAN CORPUSCULAR VOLUME 91 FL (80-99); MEAN PLATELET VOLUME 8.5 FL (7.4-10.4); MONOCYTES # (AUTO) 0.7 X 10^3 (0.0-1.0); MONOCYTES % (AUTO) 19 % (0-12); NEUTROPHILS # (AUTO) 2.4 X 10^3 (1.8-7.8); NEUTROPHILS % (AUTO) 63 % (42-75); PLATELET COUNT 150 10^3/uL (130-400); RED BLOOD COUNT 3.18 10^6/uL (4.35-5.85); RED CELL DISTRIBUTION WIDTH 14.3 % (10.0-14.5); WHITE BLOOD COUNT 3.8 10^3/uL (4.3-11.0)
[2018-03-25 06:15] LABS: ALANINE AMINOTRANSFERASE 7 U/L (0-55); ALBUMIN 3.7 GM/DL (3.2-4.5); ALKALINE PHOSPHATASE 137 U/L (40-136); BILIRUBIN,TOTAL 0.3 MG/DL (0.1-1.0); BUN/CREATININE RATIO 10; CALCIUM 8.6 MG/DL (8.5-10.1); CARBON DIOXIDE 24 MMOL/L (21-32); CHLORIDE 99 MMOL/L (98-107); CREATININE SERUM 0.68 MG/DL (0.60-1.30); GFR ESTIMATED > 60; GLUCOSE 102 MG/DL (70-105); POTASSIUM 4.2 MMOL/L (3.6-5.0); SODIUM 132 MMOL/L (135-145); TOTAL PROTEIN 6.5 GM/DL (6.4-8.2)
[2018-03-25 06:29] LABS: BASOPHILS % (MANUAL) 2 %; LYMPHOCYTES % (MANUAL) 17 %; MONOCYTES % (MANUAL) 18 %; NEUTROPHILS % (MANUAL) 63 %; RBC MORPH NORMAL
--- NOTE | 2018-03-25 08:00 | History & Physicial ---
History of Present Illness History of Present Illness Reason for visit/HPI Patient brought to the emergency room by EMS. According to the girlfriend patient had jerking motions. Patient has a history of seizures. Patient states he took his medicine and is dizzy all day and couldn't stop jerking. Patient has history of COPD, lung cancer, seizures,. Patient also has a fractured neck and in a cervical collar for this Date of Admission Mar 24, 2018 at 21:00 Time Seen by a Provider: 07:55 I consulted on this patient on 03/25/18 07:54 Attending Physician Micky Genao DO Admitting Physician Micky Genao DO Consult Allergies and Home Medications Allergies Coded Allergies: aspirin (Unverified Allergy, Mild, DOES NOT WORK WELL W/ OTHER MEDS, 03/09) ibuprofen (Unverified Allergy, Mild, 03/09/18) Home Medications Albuterol Sulfate 2.5 Mg/3 Ml Vial.neb, 2.5 MG NEB 5XD PRN for SHORTNESS OF BREATH, (Reported) Albuterol Sulfate 1 Puff Puff, 2 PUFF IH Q6H PRN for SHORTNESS OF BREATH, ( Reported) 1 PUFF = 90 MCG Amlodipine Besylate 5 Mg Tablet, 5 MG PO 0800, (Reported) Atorvastatin Calcium 10 Mg Tablet, 10 MG PO 0300, (Reported) Carbamazepine 200 Mg Tablet, 200 MG PO 0800,2300,0300, (Reported) Carbamazepine 200 Mg Tablet, 400 MG PO 1500, (Reported) TAKES 2 (200 MG) TABLETS Fluticasone/Salmeterol 12 Gm Hfa.aer.ad, 2 PUFF INH BID, (Reported) Gabapentin 300 Mg Capsule, 300 MG PO 2300, (Reported) Gabapentin 600 Mg Tablet, 600 MG PO 0800,1500, (Reported) Hydrocodone/Acetaminophen 1 Each Tablet, 1 TAB PO Q6H PRN for PAIN-MODERATE, ( Reported) Lamotrigine 100 Mg Tablet, 100 MG PO 1500,2300, (Reported) Lamotrigine 25 Mg Tablet, 25 MG PO 1500,0300, (Reported) Levofloxacin 500 Mg Tablet, 500 MG PO MoWeFr, (Reported) Lisinopril 20 Mg Tablet, 20 MG PO 0300, (Reported) Omeprazole 20 Mg Capsule.dr, 20 MG PO DAILY PRN for HEARTBURN, (Reported) Ondansetron 4 Mg Tab.rapdis, 4 MG PO TID PRN for NAUSEA/VOMITING-1ST LINE, ( Reported) Phenytoin Sodium Extended 100 Mg Capsule, 200 MG PO 0800,1500, (Reported) TAKES 2 (100 MG) CAPSULES Phenytoin Sodium Extended 100 Mg Capsule, 100 MG PO 2300, (Reported) Tiotropium [place] 1 Inh Aerp, 1 CAP IH DAILY, (Reported) Patient Home Medication List Home Medication List Reviewed: No Past Oenxuuw-Ksdexp-Aoqbtc Hx Patient Social History Marrital Status: cohabiting Employed/Student: unemployed Alcohol Use: Denies Use Recreational Drug Use: Yes (not current, 15 years ago-ETOH and PO drugs) Smoking Status: Former Smoker Former Smoker, Quit: Feb 12, 2017 Type Used: Cigars 2nd Hand Smoke Exposure: No (quit in 2016) Physical Abuse Screen: No Sexual Abuse: No Recent Foreign Travel: No Contact w/other who traveled: No Recent Hopitalizations: Yes Recent Infectious Disease Expo: No Immunizations Up To Date Tetanus Booster (TDap): Unknown Pediatric: Yes Seasonal Allergies Seasonal Allergies: Yes Surgeries Yes Gallbladder Respiratory Yes (METASTATIC LUNG CANCER DX 05/2017/COPD) COPD, Emphysema, Pneumonia Currently Using CPAP: No Currently Using BIPAP: No Cardiovascular Yes High Cholesterol, Hypertension 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) Seizure Disorder Reproductive System Hx Reproductive Disorders: No Sexually Transmitted Disease: No HIV/AIDS: No Genitourinary No Gastrointestinal No Musculoskeletal Yes Arthritis, Fractures Endocrine History of Endocrine Disorders: No HEENT History of HEENT Disorders: No Loss of Vision: Denies Hearing Impairment: Denies Cancer Yes Lung Did You Recieve Any Treatments: Yes Type of Treatment: Chemotherapy Psychosocial History of Psychiatric Problem: No Integumentary History of Skin or Integumenta: No Blood Transfusions History of Blood Disorders: No Adverse Reaction to a Blood Tr: No Family Medical History Significant Family History: No Pertinent Family Hx, Heart Disease Family Hx: Hypercholesterolemia 19 FATHER Hypertension 19 FATHER Review of Systems Constitutional: weakness, other (Seizures) EENTM: no symptoms reported, other (Neck fractures 2) Respiratory: short of breath Cardiovascular: no symptoms reported Gastrointestinal: no symptoms reported Musculoskeletal: no symptoms reported Physical Exam Vital Signs Vital Signs - First Documented 03/24/18 18:45 Temp 98.4 Pulse 96 Resp 18 B/P (MAP) 126/81 (96) Pulse Ox 99 O2 Delivery Nasal Cannula O2 Flow Rate 3.00 Capillary Refill : Less Than 3 Seconds Height, Weight, BMI Height: 6'0.00" Weight: 171lbs. 6.0oz. 77.777916hc; 23.2 BMI Method:Estimated General Appearance: No Apparent Distress Eyes: Bilateral Eye Normal Inspection HEENT: Normal ENT Inspection Neck: Other (Neck fractures) Respiratory: No Accessory Muscle Use, No Respiratory Distress, Decreased Breath Sounds Cardiovascular: Regular Rate, Rhythm, No Murmur Gastrointestinal: Non Tender, Soft Assessment/Plan Assessment and Plan Seizure disorder. Generalized weakness. Cervical fractures. COPD. Lung cancer. History of tobaccoism Admission Diagnosis Admission Status: Inpatient Order (span 2 midnights) Reason for Inpatient Admission: Seizure disorder. To monitor. History of status epilepticus Clinical Quality Measures DVT/VTE Risk/Contraindication: Risk Factor Score Per Nursin RFS Level Per Nursing on Admit: 4+=Very High MICKY GENAO DO Mar 25, 2018 08:00
[2018-03-25] MEDS ORDERED: ONDANSETRON 4 MG (ZOFRAN) ORAL DISSOLVE TAB PO PRN (08:15)
[2018-03-25] MEDS ORDERED: RT-ALBUTEROL SULF 2.5 MG/3 ML PRE-MIX VIAL IH PRN ×2 (08:15→09:00)
[2018-03-25] MEDS: GABAPENTIN 600 MG (NEURONTIN) TAB PO SCH ×2 (08:42→15:16)
[2018-03-25] MEDS: ENOXAPARIN 40 MG/0.4 ML (LOVENOX) SYR SC SCH (08:44)
[2018-03-25] MEDS ORDERED: PANTOPRAZOLE 20 MG TABLET (PROTONIX) PO PRN (09:00)
[2018-03-25] MEDS ORDERED: HYDROcodone/APAP 5 MG/325 MG (LORTAB) TAB PO PRN (09:30)
[2018-03-25] MEDS: amLODIPine 5 MG (NORVASC) TAB PO SCH (10:36)
[2018-03-25] MEDS: carBAMazepine 200 MG (TEGretol) TAB PO SCH ×2 (10:37→22:18)
[2018-03-25] MEDS: PHENYTOIN 100 MG (DILANTIN) CAP PO SCH ×2 (10:37→15:16)
[2018-03-25] MEDS ORDERED: LEVOFLOXACIN 500 MG TAB (LEVAQUIN) PO SCH (11:00)
[2018-03-25] MEDS: NS IV 1000 ML 1,000 ML IV SCH (12:31)
[2018-03-25] MEDS ORDERED: carBAMazepine 200 MG (TEGretol) TAB PO SCH (15:00)
[2018-03-25] MEDS ORDERED: FLU QUADRIvalent (5+ YOA) 2018-2019 (AFLURIA) 0.5 ML IM ONE (15:00)
[2018-03-25] MEDS: lamoTRIgine 25 MG (LaMICtal) TAB PO SCH ×2 (15:17→22:18)
[2018-03-25] MEDS: RT-ADVAIR HFA 115/21 MCG PER PUFF IH SCH (16:20)
[2018-03-25] MEDS ORDERED: GABAPENTIN 300 MG (NEURONTIN) CAP PO SCH (23:00)
[2018-03-25] MEDS ORDERED: PHENYTOIN 100 MG (DILANTIN) CAP PO SCH (23:00)
[2018-03-26 00:02] VITALS: BP 144/73
[2018-03-26] MEDS: RT-ADVAIR HFA 115/21 MCG PER PUFF IH SCH ×2 (00:54→09:05)
[2018-03-26] MEDS: NS IV 1000 ML 1,000 ML IV SCH (02:00)
[2018-03-26] MEDS: ATORVASTATIN 10 MG (LIPITOR) TABLET PO SCH (03:08)
[2018-03-26] MEDS: carBAMazepine 200 MG (TEGretol) TAB PO SCH ×2 (03:08→08:38)
[2018-03-26] MEDS: lisINopril 20 MG (PRINIVIL) TABLET PO SCH (03:08)
[2018-03-26 04:03] VITALS: BP 150/74
[2018-03-26 05:42] LABS: HEMOGLOBIN 9.2 G/DL (13.3-17.7); MEAN PLATELET VOLUME 8.4 FL (7.4-10.4); RED BLOOD COUNT 2.97 10^6/uL (4.35-5.85); RED CELL DISTRIBUTION WIDTH 14.4 % (10.0-14.5); WHITE BLOOD COUNT 3.6 10^3/uL (4.3-11.0)
[2018-03-26 06:15] LABS: BUN/CREATININE RATIO 8; CALCIUM 8.6 MG/DL (8.5-10.1); CARBON DIOXIDE 24 MMOL/L (21-32); CHLORIDE 99 MMOL/L (98-107); CREATININE SERUM 0.71 MG/DL (0.60-1.30); GFR ESTIMATED > 60; GLUCOSE 98 MG/DL (70-105); POTASSIUM 4.1 MMOL/L (3.6-5.0); SODIUM 132 MMOL/L (135-145)
[2018-03-26 08:00] VITALS: BP 116/62
[2018-03-26] MEDS ORDERED: UMECLIDINIUM BROMIDE (INCRUSE ELLIPTA) 7'S IH SCH (08:00)
--- NOTE | 2018-03-26 08:14 | Progress Note (SOAP) ---
Subjective Time Seen by a Provider: 08:12 Subjective/Events-last exam Patient feeling better today area Patient had no problems yesterday. Waiting for blood levels. To walk patient today and see how he does. Patient may be discharged today Objective Exam Vital Signs Date Time Temp Pulse Resp B/P (MAP) Pulse Ox O2 Delivery O2 Flow Rate FiO2 03/26/18 04:03 97.5 57 18 150/74 (99) 98 Nasal Cannula 2.00 03/26/18 01:00 52 03/26/18 00:02 97.8 65 20 144/73 (96) 97 Nasal Cannula 2.00 03/25/18 20:16 97.8 97 18 133/65 (87) 97 Nasal Cannula 2.00 03/25/18 19:55 Nasal Cannula 2.00 03/25/18 19:00 64 03/25/18 16:21 98 Nasal Cannula 3.00 03/25/18 16:05 97.5 61 18 146/73 (97) 99 Nasal Cannula 2.00 03/25/18 13:00 60 03/25/18 12:00 97.1 59 20 131/65 (87) 99 Nasal Cannula 2.00 03/25/18 09:00 Nasal Cannula 3.00 I & O 03/26/18 07:00 Intake Total 7790 ml Output Total 5050 ml Balance 2740 ml Capillary Refill : Less Than 3 SecondsLess Than 3 Seconds General Appearance: No Apparent Distress, WD/WN HEENT: Normal ENT Inspection Neck: Other (Cervical collar due to cervical fractures) Respiratory: No Accessory Muscle Use, No Respiratory Distress, Decreased Breath Sounds Gastrointestinal: non tender, soft Results Lab Laboratory Tests 03/26/18 05:35 Laboratory Tests 03/25/18 08:40: 03/26/18 05:35: White Blood Count 3.6L, Red Blood Count 2.97L, Hemoglobin 9.2L, Hematocrit 27L, Mean Corpuscular Volume 92, Mean Corpuscular Hemoglobin 31, Mean Corpuscular Hemoglobin Concent 34, Red Cell Distribution Width 14.4, Platelet Count 148, Mean Platelet Volume 8.4, Sodium Level 132L, Potassium Level 4.1, Chloride Level 99, Carbon Dioxide Level 24, Anion Gap 9, Blood Urea Nitrogen 6L, Creatinine 0.71, Estimat Glomerular Filtration Rate > 60, BUN/Creatinine Ratio 8 , Glucose Level 98, Calcium Level 8.6 Assessment/Plan Assessment/Plan Assess & Plan/Chief Complaint Seizure disorder. Generalized weakness. COPD. Lung cancer. Clinical Quality Measures Admission Status Admission Dx Seizure disorder. Generalized weakness. Cervical fractures. COPD. Lung cancer. History of tobaccoism DVT/VTE Risk/Contraindication: Risk Factor Score Per Nursin RFS Level Per Nursing on Admit: 4+=Very High AMANDEEP GENAO DO Mar 26, 2018 08:14
[2018-03-26] MEDS: GABAPENTIN 600 MG (NEURONTIN) TAB PO SCH (08:38)
[2018-03-26] MEDS: ENOXAPARIN 40 MG/0.4 ML (LOVENOX) SYR SC SCH (08:38)
[2018-03-26] MEDS: amLODIPine 5 MG (NORVASC) TAB PO SCH (08:38)
[2018-03-26] MEDS: PHENYTOIN 100 MG (DILANTIN) CAP PO SCH (08:39)
[2018-03-26 12:10] VITALS: BP 116/62
--- NOTE | 2018-03-27 07:25 | Discharge Summary ---
Diagnosis/Chief Complaint Date of Admission Mar 24, 2018 at 21:00 Date of Discharge Mar 26, 2018 at 12:10 Discharge Date: Mar 26, 2018 Discharge Diagnosis Seizures. Generalized weakness. Cervical fractures. COPD. History of lung cancer. History of tobaccoism. Hypertension. Anemia. Metastatic lung cancer. Slurred speech Reason Hospital Visit Patient brought to the emergency room by EMS. According to the girlfriend patient had jerking motions. Patient has a history of seizures. Patient states he took his medicine and is dizzy all day and couldn't stop jerking. Patient has history of COPD, lung cancer, seizures,. Patient also has a fractured neck and in a cervical collar for this Discharge Summary Discharge Physical Examination Allergies: Coded Allergies: aspirin (Unverified Allergy, Mild, DOES NOT WORK WELL W/ OTHER MEDS, 03/09) ibuprofen (Unverified Allergy, Mild, 03/09/18) Vitals & I&Os Vital Signs Date Time Temp Pulse Resp B/P (MAP) Pulse Ox O2 Delivery O2 Flow Rate FiO2 03/26/18 12:10 68 18 116/62 95 Nasal Cannula 3.00 03/26/18 08:00 99.2 Hospital Course Patient in hospital felt better. Patient was able to ambulate. Seizures stopped. Weakness resolved Labs (last 24 hrs) Laboratory Tests 03/24/18 18:50: White Blood Count 4.6, Red Blood Count 3.42L, Hemoglobin 10.4L, Hematocrit 31L, Mean Corpuscular Volume 90, Mean Corpuscular Hemoglobin 30, Mean Corpuscular Hemoglobin Concent 34, Red Cell Distribution Width 14.7H, Platelet Count 175, Mean Platelet Volume 8.4, Neutrophils (%) (Auto) 60, Lymphocytes (%) (Auto) 19, Monocytes (%) (Auto) 20H, Eosinophils (%) (Auto) 0, Basophils (%) (Auto) 1, Neutrophils # (Auto) 2.8, Lymphocytes # (Auto) 0.9L, Monocytes # (Auto) 0.9, Eosinophils # (Auto) 0.0, Basophils # (Auto) 0.0, Prothrombin Time 13.3, INR Comment 1.0, Activated Partial Thromboplast Time 42H, Sodium Level 131L, Potassium Level 4.2, Chloride Level 94L, Carbon Dioxide Level 25, Anion Gap 12, Blood Urea Nitrogen 13, Creatinine 0.73, Estimat Glomerular Filtration Rate > 60 , BUN/Creatinine Ratio 18, Glucose Level 102, Calcium Level 9.2, Corrected Calcium 9.2, Magnesium Level 2.0, Total Bilirubin 0.3, Aspartate Amino Transf ( AST/SGOT) 10, Alanine Aminotransferase (ALT/SGPT) 6, Alkaline Phosphatase 156H, Troponin I < 0.30, Total Protein 7.1, Albumin 4.0, Amylase Level 28, Lipase 6L, TSH [place] Testing 0.65, Acetaminophen Level < 10L, Phenytoin (Dilantin) Level 20.2H, Carbamazepine (Tegretol) Level 8.9, Serum Alcohol < 10 03/24/18 20:32: Urine Color YELLOW, Urine Clarity CLEAR, Urine pH 6, Urine Specific [place] 1.015L, Urine Protein NEGATIVE, Urine Glucose (UA) NEGATIVE, Urine Ketones NEGATIVE, Urine Nitrite NEGATIVE, Urine Bilirubin NEGATIVE, Urine Urobilinogen NORMAL, Urine Leukocyte Esterase NEGATIVE, Urine RBC (Auto) NEGATIVE, Urine RBC NONE, Urine WBC 0-2, Urine Squamous Epithelial Cells 0-2, Urine Crystals NONE, Urine Bacteria NONE, Urine Casts NONE, Urine Mucus NEGATIVE, Urine Culture Indicated NO, Urine Opiates Screen NEGATIVE, Urine Oxycodone Screen NEGATIVE, Urine Methadone Screen NEGATIVE, Urine Propoxyphene Screen NEGATIVE, Urine Barbiturates Screen POSITIVEH, Ur Tricyclic Antidepressants Screen NEGATIVE, Urine Phencyclidine Screen NEGATIVE, Urine Amphetamines Screen NEGATIVE, Urine Methamphetamines Screen NEGATIVE, Urine Benzodiazepines Screen NEGATIVE, Urine Cocaine Screen NEGATIVE, Urine Cannabinoids Screen NEGATIVE 03/24/18 21:34: Lamotrigine (Lamictal) Level <2.0L 03/25/18 05:50: White Blood Count 3.8L, Red Blood Count 3.18L, Hemoglobin 9.7L, Hematocrit 29L, Mean Corpuscular Volume 91, Mean Corpuscular Hemoglobin 31, Mean Corpuscular Hemoglobin Concent 34, Red Cell Distribution Width 14.3, Platelet Count 150, Mean Platelet Volume 8.5, Neutrophils (%) (Auto) 63, Lymphocytes (%) (Auto) 18, Monocytes (%) (Auto) 19H, Eosinophils (%) (Auto) 0, Basophils (%) (Auto) 1, Neutrophils # (Auto) 2.4, Lymphocytes # (Auto) 0.7L, Monocytes # (Auto) 0.7, Eosinophils # (Auto) 0.0, Basophils # (Auto) 0.0, Sodium Level 132L, Potassium Level 4.2, Chloride Level 99, Carbon Dioxide Level 24, Anion Gap 9, Blood Urea Nitrogen 7, Creatinine 0.68, Estimat Glomerular Filtration Rate > 60, BUN/ Creatinine Ratio 10, Glucose Level 102, Calcium Level 8.6, Corrected Calcium 8.8 , Total Bilirubin 0.3, Aspartate Amino Transf (AST/SGOT) 10, Alanine Aminotransferase (ALT/SGPT) 7, Alkaline Phosphatase 137H, Total Protein 6.5, Albumin 3.7, Carbamazepine (Tegretol) Level 5.4, Neutrophils % (Manual) 63, Lymphocytes % (Manual) 17, Monocytes % (Manual) 18, Basophils % (Manual) 2, Blood Morphology Comment NORMAL 03/25/18 08:40: Phenytoin (Dilantin) Level 17.1, Lamotrigine (Lamictal) Level <2.0L 03/26/18 05:35: White Blood Count 3.6L, Red Blood Count 2.97L, Hemoglobin 9.2L, Hematocrit 27L, Mean Corpuscular Volume 92, Mean Corpuscular Hemoglobin 31, Mean Corpuscular Hemoglobin Concent 34, Red Cell Distribution Width 14.4, Platelet Count 148, Mean Platelet Volume 8.4, Sodium Level 132L, Potassium Level 4.1, Chloride Level 99, Carbon Dioxide Level 24, Anion Gap 9, Blood Urea Nitrogen 6L, Creatinine 0.71, Estimat Glomerular Filtration Rate > 60, BUN/Creatinine Ratio 8 , Glucose Level 98, Calcium Level 8.6 Laboratory Tests 03/24/18 18:50 03/25/18 05:50 03/26/18 05:35 Pending Labs Laboratory Tests 03/24/18 18:50: White Blood Count 4.6, Red Blood Count 3.42, Hemoglobin 10.4, Hematocrit 31, Mean Corpuscular Volume 90, Mean Corpuscular Hemoglobin 30, Mean Corpuscular Hemoglobin Concent 34, Red Cell Distribution Width 14.7, Platelet Count 175, Mean Platelet Volume 8.4, Neutrophils (%) (Auto) 60, Lymphocytes (%) (Auto) 19, Monocytes (%) (Auto) 20, Eosinophils (%) (Auto) 0, Basophils (%) (Auto) 1, Neutrophils # (Auto) 2.8, Lymphocytes # (Auto) 0.9, Monocytes # (Auto) 0.9, Eosinophils # (Auto) 0.0, Basophils # (Auto) 0.0, Prothrombin Time 13.3, INR Comment 1.0, Activated Partial Thromboplast Time 42, Sodium Level 131, Potassium Level 4.2, Chloride Level 94, Carbon Dioxide Level 25, Anion Gap 12, Blood Urea Nitrogen 13, Creatinine 0.73, Estimat Glomerular Filtration Rate > 60 , BUN/Creatinine Ratio 18, Glucose Level 102, Calcium Level 9.2, Corrected Calcium 9.2, Magnesium Level 2.0, Total Bilirubin 0.3, Aspartate Amino Transf ( AST/SGOT) 10, Alanine Aminotransferase (ALT/SGPT) 6, Alkaline Phosphatase 156, Troponin I < 0.30, Total Protein 7.1, Albumin 4.0, Amylase Level 28, Lipase 6, TSH [place] Testing 0.65, Acetaminophen Level < 10, Phenytoin (Dilantin) Level 20.2, Carbamazepine (Tegretol) Level 8.9, Serum Alcohol < 10 03/24/18 20:32: Urine Color YELLOW, Urine Clarity CLEAR, Urine pH 6, Urine Specific [place] 1.015, Urine Protein NEGATIVE, Urine Glucose (UA) NEGATIVE, Urine Ketones NEGATIVE, Urine Nitrite NEGATIVE, Urine Bilirubin NEGATIVE, Urine Urobilinogen NORMAL, Urine Leukocyte Esterase NEGATIVE, Urine RBC (Auto) NEGATIVE, Urine RBC NONE, Urine WBC 0-2, Urine Squamous Epithelial Cells 0-2, Urine Crystals NONE, Urine Bacteria NONE, Urine Casts NONE, Urine Mucus NEGATIVE, Urine Culture Indicated NO, Urine Opiates Screen NEGATIVE, Urine Oxycodone Screen NEGATIVE, Urine Methadone Screen NEGATIVE, Urine Propoxyphene Screen NEGATIVE, Urine Barbiturates Screen POSITIVE, Ur Tricyclic Antidepressants Screen NEGATIVE, Urine Phencyclidine Screen NEGATIVE, Urine Amphetamines Screen NEGATIVE, Urine Methamphetamines Screen NEGATIVE, Urine Benzodiazepines Screen NEGATIVE, Urine Cocaine Screen NEGATIVE, Urine Cannabinoids Screen NEGATIVE 03/24/18 21:34: Lamotrigine (Lamictal) Level <2.0 03/25/18 05:50: White Blood Count 3.8, Red Blood Count 3.18, Hemoglobin 9.7, Hematocrit 29, Mean Corpuscular Volume 91, Mean Corpuscular Hemoglobin 31, Mean Corpuscular Hemoglobin Concent 34, Red Cell Distribution Width 14.3, Platelet Count 150, Mean Platelet Volume 8.5, Neutrophils (%) (Auto) 63, Lymphocytes (%) (Auto) 18, Monocytes (%) (Auto) 19, Eosinophils (%) (Auto) 0, Basophils (%) (Auto) 1, Neutrophils # (Auto) 2.4, Lymphocytes # (Auto) 0.7, Monocytes # (Auto) 0.7, Eosinophils # (Auto) 0.0, Basophils # (Auto) 0.0, Sodium Level 132, Potassium Level 4.2, Chloride Level 99, Carbon Dioxide Level 24, Anion Gap 9, Blood Urea Nitrogen 7, Creatinine 0.68, Estimat Glomerular Filtration Rate > 60, BUN/ Creatinine Ratio 10, Glucose Level 102, Calcium Level 8.6, Corrected Calcium 8.8 , Total Bilirubin 0.3, Aspartate Amino Transf (AST/SGOT) 10, Alanine Aminotransferase (ALT/SGPT) 7, Alkaline Phosphatase 137, Total Protein 6.5, Albumin 3.7, Carbamazepine (Tegretol) Level 5.4, Neutrophils % (Manual) 63, Lymphocytes % (Manual) 17, Monocytes % (Manual) 18, Basophils % (Manual) 2, Blood Morphology Comment NORMAL 03/25/18 08:40: Phenytoin (Dilantin) Level 17.1, Lamotrigine (Lamictal) Level <2.0 03/26/18 05:35: White Blood Count 3.6, Red Blood Count 2.97, Hemoglobin 9.2, Hematocrit 27, Mean Corpuscular Volume 92, Mean Corpuscular Hemoglobin 31, Mean Corpuscular Hemoglobin Concent 34, Red Cell Distribution Width 14.4, Platelet Count 148, Mean Platelet Volume 8.4, Sodium Level 132, Potassium Level 4.1, Chloride Level 99, Carbon Dioxide Level 24, Anion Gap 9, Blood Urea Nitrogen 6, Creatinine 0.71 , Estimat Glomerular Filtration Rate > 60, BUN/Creatinine Ratio 8, Glucose Level 98, Calcium Level 8.6 Discussion & Recommendations To be followed up in office. Neurology consult as outpatient Discharge Home Medications: Active Scripts Active Reported Ondansetron Odt (Ondansetron) 4 Mg Tab.rapdis 4 Mg PO TID PRN Omeprazole 20 Mg Capsule.dr 20 Mg PO DAILY PRN Advair Hfa 115-21 Mcg Inhaler (Fluticasone/Salmeterol) 12 Gm Hfa.aer.ad 2 Puff INH BID Levofloxacin 500 Mg Tablet 500 Mg PO MOWEFR Hydrocodone-Acetamin 5-325 mg (Hydrocodone/Acetaminophen) 1 Each Tablet 1 Tab PO Q6H PRN Atorvastatin Calcium 10 Mg Tablet 10 Mg PO 0300 Carbamazepine 200 Mg Tablet 400 Mg PO 1500 TAKES 2 (200 MG) TABLETS Amlodipine Besylate 5 Mg Tablet 5 Mg PO 0800 Lamotrigine 25 Mg Tablet 25 Mg PO 1500,0300 Lisinopril 20 Mg Tablet 20 Mg PO 0300 Proair Hfa (Albuterol Sulfate) 1 Puff Puff 2 Puff IH Q6H PRN 1 PUFF = 90 MCG Spiriva (Tiotropium Boomer) 1 Inh Aerp 1 Cap IH DAILY Albuterol Sulfate 2.5 Mg/3 Ml Vial.neb 2.5 Mg NEB 5XD PRN Tegretol (Carbamazepine) 200 Mg Tablet 200 Mg PO 0800,2300,0300 Phenytoin Sodium Extended 100 Mg Capsule 100 Mg PO 2300 Phenytoin Sodium Extended 100 Mg Capsule 200 Mg PO 0800,1500 TAKES 2 (100 MG) CAPSULES Gabapentin 600 Mg Tablet 600 Mg PO 0800,1500 Gabapentin 300 Mg Capsule 300 Mg PO 2300 Lamotrigine 100 Mg Tablet 100 Mg PO 1500,2300 Instructions to patient/family Please see electronic discharge instructions given to patient. Clinical Quality Measures DVT/VTE Risk/Contraindication: Risk Factor Score Per Nursin RFS Level Per Nursing on Admit: 4+=Very High AMANDEEP GENAO DO Mar 27, 2018 07:25
== END 2018-03-26 12:10 | disposition home or self-care (01) | DRG 101 ==
LOC: EDUNIT# 18:44 → ER 18:45 → 4TH 21:00
PROVIDERS: ADMIT Internal Medicine; ATTEND Family Medicine
DX: G40.909 Epilepsy, unspecified, not intractable, without status epilepticus (principal); R47.81 Slurred speech; R53.1 Weakness; C34.90 Malignant neoplasm of unspecified part of unspecified bronchus or lung; C79.51 Secondary malignant neoplasm of bone; S12.9XXD Fracture of neck, unspecified, subsequent encounter; J43.9 Emphysema, unspecified; D64.9 Anemia, unspecified; I10 Essential (primary) hypertension; G14 Postpolio syndrome; G47.30 Sleep apnea, unspecified; J30.2 Other seasonal allergic rhinitis; E78.00 Pure hypercholesterolemia, unspecified; M19.91 Primary osteoarthritis, unspecified site; Z87.891 Personal history of nicotine dependence; Z87.01 Personal history of pneumonia (recurrent); Z79.899 Other long term (current) drug therapy
CPT/HCPCS: 36415; 70450; 71045; 80048; 80053; 80156; 80175; 80185; 80306; 80320; 80329; 81000; 82150; 83690; 83735; 84443; 84484; 85007; 85025; 85027; 85610; 85730; 93005; 93041; 94640; 94760; 96361; 96374; 96375; 96376

== ENCOUNTER 2018-03-30 13:59 | Outpatient (RCR) | payer MEDICAID ==
[2018-01-08 14:30] LABS: BASOPHILS % (AUTO) 1 % (0-10); EOSINOPHILS % (AUTO) 0 % (0-10); HEMATOCRIT 34 % (40-54); HEMOGLOBIN 11.1 G/DL (13.3-17.7); LYMPHOCYTES % (AUTO) 19 % (12-44); MEAN CORPUSCULAR HEMOGLOBIN 31 PG (25-34); MEAN CORPUSCULAR HGB CONC 33 G/DL (32-36); MEAN CORPUSCULAR VOLUME 94 FL (80-99); MEAN PLATELET VOLUME 8.2 FL (7.4-10.4); MONOCYTES % (AUTO) 19 % (0-12); NEUTROPHILS # (AUTO) 3.3 X 10^3 (1.8-7.8); NEUTROPHILS % (AUTO) 62 % (42-75); PLATELET COUNT 242 10^3/uL (130-400); RED BLOOD COUNT 3.55 10^6/uL (4.35-5.85); RED CELL DISTRIBUTION WIDTH 15.2 % (10.0-14.5); WHITE BLOOD COUNT 5.3 10^3/uL (4.3-11.0)
[2018-01-08 14:52] LABS: ALANINE AMINOTRANSFERASE 10 U/L (0-55); ALBUMIN 4.3 GM/DL (3.2-4.5); ALKALINE PHOSPHATASE 137 U/L (40-136); BILIRUBIN,TOTAL 0.3 MG/DL (0.1-1.0); BUN/CREATININE RATIO 17; CALCIUM 9.1 MG/DL (8.5-10.1); CARBON DIOXIDE 25 MMOL/L (21-32); CHLORIDE 97 MMOL/L (98-107); CREATININE SERUM 0.76 MG/DL (0.60-1.30); GFR ESTIMATED > 60; GLUCOSE 93 MG/DL (70-105); POTASSIUM 4.4 MMOL/L (3.6-5.0); SODIUM 132 MMOL/L (135-145); TOTAL PROTEIN 7.5 GM/DL (6.4-8.2)
[2018-01-15 14:40] LABS: BASOPHILS % (AUTO) 1 % (0-10); EOSINOPHILS % (AUTO) 0 % (0-10); HEMATOCRIT 32 % (40-54); HEMOGLOBIN 10.3 G/DL (13.3-17.7); LYMPHOCYTES # (AUTO) 0.7 X 10^3 (1.0-4.0); LYMPHOCYTES % (AUTO) 15 % (12-44); MEAN CORPUSCULAR HEMOGLOBIN 31 PG (25-34); MEAN CORPUSCULAR HGB CONC 33 G/DL (32-36); MEAN CORPUSCULAR VOLUME 95 FL (80-99); MEAN PLATELET VOLUME 8.3 FL (7.4-10.4); MONOCYTES # (AUTO) 0.5 X 10^3 (0.0-1.0); MONOCYTES % (AUTO) 10 % (0-12); NEUTROPHILS # (AUTO) 3.5 X 10^3 (1.8-7.8); NEUTROPHILS % (AUTO) 75 % (42-75); PLATELET COUNT 222 10^3/uL (130-400); RED BLOOD COUNT 3.33 10^6/uL (4.35-5.85); RED CELL DISTRIBUTION WIDTH 14.9 % (10.0-14.5); WHITE BLOOD COUNT 4.7 10^3/uL (4.3-11.0)
[2018-01-15 15:03] LABS: BUN/CREATININE RATIO 18; CALCIUM 9.2 MG/DL (8.5-10.1); CARBON DIOXIDE 27 MMOL/L (21-32); CHLORIDE 101 MMOL/L (98-107); CREATININE SERUM 0.71 MG/DL (0.60-1.30); GFR ESTIMATED > 60; GLUCOSE 95 MG/DL (70-105); POTASSIUM 4.9 MMOL/L (3.6-5.0); SODIUM 135 MMOL/L (135-145)
[2018-01-22 14:08] LABS: BASOPHILS % (AUTO) 1 % (0-10); EOSINOPHILS % (AUTO) 0 % (0-10); HEMATOCRIT 33 % (40-54); HEMOGLOBIN 11.2 G/DL (13.3-17.7); LYMPHOCYTES # (AUTO) 0.9 X 10^3 (1.0-4.0); LYMPHOCYTES % (AUTO) 23 % (12-44); MEAN CORPUSCULAR HEMOGLOBIN 31 PG (25-34); MEAN CORPUSCULAR HGB CONC 34 G/DL (32-36); MEAN CORPUSCULAR VOLUME 93 FL (80-99); MEAN PLATELET VOLUME 8.2 FL (7.4-10.4); MONOCYTES # (AUTO) 0.4 X 10^3 (0.0-1.0); MONOCYTES % (AUTO) 11 % (0-12); NEUTROPHILS # (AUTO) 2.5 X 10^3 (1.8-7.8); NEUTROPHILS % (AUTO) 65 % (42-75); PLATELET COUNT 237 10^3/uL (130-400); RED BLOOD COUNT 3.59 10^6/uL (4.35-5.85); RED CELL DISTRIBUTION WIDTH 14.9 % (10.0-14.5); WHITE BLOOD COUNT 3.8 10^3/uL (4.3-11.0)
[2018-01-22 14:28] LABS: BUN/CREATININE RATIO 18; CALCIUM 9.4 MG/DL (8.5-10.1); CARBON DIOXIDE 23 MMOL/L (21-32); CHLORIDE 96 MMOL/L (98-107); CREATININE SERUM 0.77 MG/DL (0.60-1.30); GFR ESTIMATED > 60; GLUCOSE 106 MG/DL (70-105); POTASSIUM 4.7 MMOL/L (3.6-5.0); SODIUM 130 MMOL/L (135-145)
[2018-02-17 13:37] LABS: BASOPHILS % (AUTO) 1 % (0-10); EOSINOPHILS % (AUTO) 0 % (0-10); HEMATOCRIT 31 % (40-54); HEMOGLOBIN 10.4 G/DL (13.3-17.7); LYMPHOCYTES # (AUTO) 0.7 X 10^3 (1.0-4.0); LYMPHOCYTES % (AUTO) 16 % (12-44); MEAN CORPUSCULAR HEMOGLOBIN 31 PG (25-34); MEAN CORPUSCULAR HGB CONC 33 G/DL (32-36); MEAN CORPUSCULAR VOLUME 93 FL (80-99); MEAN PLATELET VOLUME 8.2 FL (7.4-10.4); MONOCYTES # (AUTO) 0.8 X 10^3 (0.0-1.0); MONOCYTES % (AUTO) 17 % (0-12); NEUTROPHILS # (AUTO) 3.1 X 10^3 (1.8-7.8); NEUTROPHILS % (AUTO) 67 % (42-75); PLATELET COUNT 231 10^3/uL (130-400); RED BLOOD COUNT 3.36 10^6/uL (4.35-5.85); RED CELL DISTRIBUTION WIDTH 14.5 % (10.0-14.5); WHITE BLOOD COUNT 4.6 10^3/uL (4.3-11.0)
[2018-02-17 13:54] LABS: BUN/CREATININE RATIO 10; CALCIUM 9.1 MG/DL (8.5-10.1); CARBON DIOXIDE 26 MMOL/L (21-32); CHLORIDE 95 MMOL/L (98-107); GFR ESTIMATED > 60; GLUCOSE 98 MG/DL (70-105); POTASSIUM 4.3 MMOL/L (3.6-5.0); SODIUM 131 MMOL/L (135-145)
[2018-02-17 17:01] LABS: ALANINE AMINOTRANSFERASE 8 U/L (0-55); ALBUMIN 4.1 GM/DL (3.2-4.5); ALKALINE PHOSPHATASE 146 U/L (40-136); BILIRUBIN,TOTAL 0.2 MG/DL (0.1-1.0); BUN/CREATININE RATIO 11; CARBON DIOXIDE 25 MMOL/L (21-32); CHLORIDE 95 MMOL/L (98-107); GFR ESTIMATED > 60; GLUCOSE 98 MG/DL (70-105); MAGNESIUM 2.1 MG/DL (1.8-2.4); POTASSIUM 4.4 MMOL/L (3.6-5.0); SODIUM 130 MMOL/L (135-145); TOTAL PROTEIN 7.5 GM/DL (6.4-8.2)
[2018-02-25 14:08] LABS: BASOPHILS % (AUTO) 1 % (0-10); EOSINOPHILS % (AUTO) 0 % (0-10); HEMATOCRIT 33 % (40-54); HEMOGLOBIN 10.7 G/DL (13.3-17.7); LYMPHOCYTES # (AUTO) 0.8 X 10^3 (1.0-4.0); LYMPHOCYTES % (AUTO) 20 % (12-44); MEAN CORPUSCULAR HEMOGLOBIN 31 PG (25-34); MEAN CORPUSCULAR HGB CONC 33 G/DL (32-36); MEAN CORPUSCULAR VOLUME 94 FL (80-99); MEAN PLATELET VOLUME 8.4 FL (7.4-10.4); MONOCYTES # (AUTO) 0.4 X 10^3 (0.0-1.0); MONOCYTES % (AUTO) 11 % (0-12); NEUTROPHILS # (AUTO) 2.6 X 10^3 (1.8-7.8); NEUTROPHILS % (AUTO) 68 % (42-75); PLATELET COUNT 239 10^3/uL (130-400); RED BLOOD COUNT 3.45 10^6/uL (4.35-5.85); RED CELL DISTRIBUTION WIDTH 14.9 % (10.0-14.5); WHITE BLOOD COUNT 3.9 10^3/uL (4.3-11.0)
[2018-02-25 14:35] LABS: BUN/CREATININE RATIO 13; CALCIUM 9.3 MG/DL (8.5-10.1); CARBON DIOXIDE 23 MMOL/L (21-32); CHLORIDE 99 MMOL/L (98-107); CREATININE SERUM 0.75 MG/DL (0.60-1.30); GFR ESTIMATED > 60; GLUCOSE 100 MG/DL (70-105); POTASSIUM 4.8 MMOL/L (3.6-5.0); SODIUM 134 MMOL/L (135-145)
[2018-03-04 13:09] LABS: BASOPHILS % (AUTO) 1 % (0-10); EOSINOPHILS % (AUTO) 0 % (0-10); HEMATOCRIT 32 % (40-54); HEMOGLOBIN 10.5 G/DL (13.3-17.7); LYMPHOCYTES # (AUTO) 0.6 X 10^3 (1.0-4.0); LYMPHOCYTES % (AUTO) 22 % (12-44); MEAN CORPUSCULAR HEMOGLOBIN 30 PG (25-34); MEAN CORPUSCULAR HGB CONC 33 G/DL (32-36); MEAN CORPUSCULAR VOLUME 93 FL (80-99); MEAN PLATELET VOLUME 8.6 FL (7.4-10.4); MONOCYTES # (AUTO) 0.4 X 10^3 (0.0-1.0); MONOCYTES % (AUTO) 14 % (0-12); NEUTROPHILS # (AUTO) 1.8 X 10^3 (1.8-7.8); NEUTROPHILS % (AUTO) 63 % (42-75); PLATELET COUNT 188 10^3/uL (130-400); RED BLOOD COUNT 3.46 10^6/uL (4.35-5.85); RED CELL DISTRIBUTION WIDTH 14.5 % (10.0-14.5); WHITE BLOOD COUNT 2.9 10^3/uL (4.3-11.0)
[2018-03-04 13:25] LABS: BUN/CREATININE RATIO 22; CALCIUM 8.8 MG/DL (8.5-10.1); CARBON DIOXIDE 23 MMOL/L (21-32); CHLORIDE 94 MMOL/L (98-107); CREATININE SERUM 0.79 MG/DL (0.60-1.30); GFR ESTIMATED > 60; GLUCOSE 116 MG/DL (70-105); POTASSIUM 5.4 MMOL/L (3.6-5.0); SODIUM 128 MMOL/L (135-145)
[~2018-03-30 13:59] MED LIST changes: +CARBOPLATIN 160 MG in D5W 50 ML IV(CANCER CTR) 50 ML IV SCH; +FAMOTIDINE 20MG/2ML IV (CANCER CTR) IV SCH; +NS IV 1000 ML (CANCER CTR) IV SCH; +NS IV 500 ML (CANCER CENTER) 500 ML ONE; +ONDANSETRON MDV (CANCER CENTER 16 MG, DEXAMETHASONE INJ (CANCER CTR) 4 MG in NS (IVPB) ... IV SCH; +PACLITAXEL 140 MG in NORMAL SALINE (CANCER CENTER) 250 ML IV SCH; +diphenhydrAMINE 25 MG TAB (BENADRYL) CANCER CENTER PO SCH
[2018-03-30 14:52] LABS: BASOPHILS % (AUTO) 1 % (0-10); EOSINOPHILS % (AUTO) 0 % (0-10); HEMATOCRIT 31 % (40-54); HEMOGLOBIN 10.2 G/DL (13.3-17.7); LYMPHOCYTES # (AUTO) 0.7 X 10^3 (1.0-4.0); LYMPHOCYTES % (AUTO) 19 % (12-44); MEAN CORPUSCULAR HEMOGLOBIN 31 PG (25-34); MEAN CORPUSCULAR HGB CONC 33 G/DL (32-36); MEAN CORPUSCULAR VOLUME 92 FL (80-99); MEAN PLATELET VOLUME 8.5 FL (7.4-10.4); MONOCYTES # (AUTO) 0.6 X 10^3 (0.0-1.0); MONOCYTES % (AUTO) 15 % (0-12); NEUTROPHILS # (AUTO) 2.6 X 10^3 (1.8-7.8); NEUTROPHILS % (AUTO) 66 % (42-75); PLATELET COUNT 179 10^3/uL (130-400); RED BLOOD COUNT 3.34 10^6/uL (4.35-5.85); RED CELL DISTRIBUTION WIDTH 14.5 % (10.0-14.5)
[2018-03-30 15:16] LABS: ALANINE AMINOTRANSFERASE 6 U/L (0-55); ALBUMIN 4.2 GM/DL (3.2-4.5); ALKALINE PHOSPHATASE 166 U/L (40-136); BILIRUBIN,TOTAL 0.2 MG/DL (0.1-1.0); BUN/CREATININE RATIO 10; CALCIUM 9.4 MG/DL (8.5-10.1); CARBON DIOXIDE 25 MMOL/L (21-32); CHLORIDE 97 MMOL/L (98-107); CREATININE SERUM 0.77 MG/DL (0.60-1.30); GFR ESTIMATED > 60; GLUCOSE 102 MG/DL (70-105); POTASSIUM 4.4 MMOL/L (3.6-5.0); SODIUM 133 MMOL/L (135-145); TOTAL PROTEIN 7.6 GM/DL (6.4-8.2)
== END 2018-03-31 | disposition home or self-care (01) ==
LOC: ONC 13:59
PROVIDERS: ATTEND Internal Medicine Hematology & Oncology
DX: Z51.11 Encounter for antineoplastic chemotherapy (principal); C34.12 Malignant neoplasm of upper lobe, left bronchus or lung; C79.51 Secondary malignant neoplasm of bone; J43.9 Emphysema, unspecified; G40.909 Epilepsy, unspecified, not intractable, without status epilepticus; E78.5 Hyperlipidemia, unspecified; Z87.891 Personal history of nicotine dependence; Z79.899 Other long term (current) drug therapy
CPT/HCPCS: 36415; 36591; 80048; 80053; 80156; 80185; 82784; 83735; 85025; 96375; 96413; 96417; 99213

== ENCOUNTER 2018-04-21 14:41 | Inpatient (IN) | payer MEDICAID | END 2018-04-24 16:35 | disposition other institution (70) | LOC: ER 14:41 → 4TH 04-22 11:38 → ICU 16:40 | DX: J18.1 Lobar pneumonia, unspecified organism (principal); G40.919 Epilepsy, unspecified, intractable, without status epilepticus; R09.02 Hypoxemia; R06.03 Acute respiratory distress; C34.91 Malignant neoplasm of unspecified part of right bronchus or lung; C79.51 Secondary malignant neoplasm of bone; N17.9 Acute kidney failure, unspecified; J98.11 Atelectasis; R64 Cachexia; E87.1 Hypo-osmolality and hyponatremia; S12.9XXD Fracture of neck, unspecified, subsequent encounter; E87.8 Other disorders of electrolyte and fluid balance, not elsewhere classified; J43.9 Emphysema, unspecified; J30.2 Other seasonal allergic rhinitis; I10 Essential (primary) hypertension; I95.9 Hypotension, unspecified; G47.30 Sleep apnea, unspecified; E78.00 Pure hypercholesterolemia, unspecified; G14 Postpolio syndrome; M19.91 Primary osteoarthritis, unspecified site; Z99.81 Dependence on supplemental oxygen; Z87.891 Personal history of nicotine dependence ==

== ENCOUNTER → 2018-05-05 | Outpatient (CLI) | payer MEDICAID ==
[~2018-05-05] MED LIST changes: -AMLO5TAB7 PO; +AMLO5TAB9 PO; +BARIUM SUSPENSION 2.1% (VANILLA SILQ) 450 ML PO ONE; -CARBOPLATIN 160 MG in D5W 50 ML IV(CANCER CTR) 50 ML IV SCH; +CATHETER FLUSH 10 ML SYR IV PRN; -FAMOTIDINE 20MG/2ML IV (CANCER CTR) IV SCH; -GABA600T2 PO; +GBPN600T PO; +IOHEXOL 350 MG/ML 100 ML (OMNIPAQUE 350) VIAL IV ONE; +NS 100 ML (IVPB) BAG IV ONE; -NS IV 1000 ML (CANCER CTR) IV SCH; -NS IV 500 ML (CANCER CENTER) 500 ML ONE; -ONDANSETRON MDV (CANCER CENTER 16 MG, DEXAMETHASONE INJ (CANCER CTR) 4 MG in NS (IVPB) ... IV SCH; -PACLITAXEL 140 MG in NORMAL SALINE (CANCER CENTER) 250 ML IV SCH; +RECEIVED CONTRAST (Hold Metformin) IV SCH; -diphenhydrAMINE 25 MG TAB (BENADRYL) CANCER CENTER PO SCH
--- NOTE | 2018-05-05 14:08 | Diagnostic Imaging Report ---
PROCEDURE: CT chest with contrast, CT abdomen and pelvis with and without contrast. TECHNIQUE: Pre and post intravenous contrast axial imaging of the abdomen and pelvis and post contrast axial imaging of the chest were performed. INDICATION: Non-small cell lung carcinoma. Correlation is made with prior CT chest, abdomen, pelvis study from 02/10/2018. CT CHEST: A right chest wall port remains in place. No axillary lymphadenopathy is seen. No hilar or mediastinal lymphadenopathy is seen. No pericardial or pleural fluid is detected. Centrilobular emphysematous changes are again noted. Previously noted spiculated density in the posterior medial left upper lobe appears slightly less prominent on today's study measuring 6 mm. There are worsening opacities in bilateral posterior lower lobes. Nodular and airspace opacities are seen. The area of consolidation that has developed in the left posterior lower lobe measuring 5.7 x 2.6 cm. Minimal patchy infiltrate in the lingula is also seen. Lytic lesion involving the right humeral head appears stable. IMPRESSION: 1. Worsening bilateral lower lobe parenchymal opacities when compared with study from 02/10/2018, was consolidated in the left lower lobe, likely infectious/inflammatory basis. Continued followup is recommended. Tiny spiculated lesion in the left upper lobe is less prominent on today's study. No mediastinal or hilar lymphadenopathy is detected. CT ABDOMEN AND PELVIS: No discrete liver mass is seen. Gallbladder surgically absent. No biliary ductal dilatation is seen. The pancreas and spleen are unremarkable. No adrenal mass is seen. The small low-density lesion arising from the upper pole of the left kidney is stable. Right kidney is unremarkable. Aorta is calcified but not aneurysmal. No central, retroperitoneal or mesenteric lymphadenopathy is seen. Bowel loops are normal caliber. There is moderate stool throughout the colon. There is no ascites. The bladder is unremarkable. There is no lymphadenopathy in the pelvis. IMPRESSION: Stable CT abdomen pelvis since study from 04/12/2017. There is moderate stool in the colon. No abdominal or pelvic lymphadenopathy or evidence of metastatic disease is identified. Dictated by: Dictated on workstation # [id number]
--- NOTE | 2018-05-05 16:30 | Diagnostic Imaging Report ---
INDICATION: Non-small cell lung carcinoma. TECHNIQUE: Patient was administered 25 mCi technetium 99m MDP intravenously and whole-body imaging was performed after a three hour delay. COMPARISON: Correlation is made with prior bone scan from 02/10/2018. FINDINGS: Normal uptake of activity in the axial and appendicular skeleton is seen. There is uptake by the kidneys with excretion into the urinary bladder. Mild uptake in the medial compartment of the right knee is noted and similar to prior study consistent with degenerative change. There has been interval development of increased uptake involving foci involving anterior right ribs, approximately right third, fourth and fifth anterior ribs. These are in a vertically oriented linear configuration. In reviewing patient's CT study earlier the same day, there appeared to be some healing nondisplaced rib fractures at these locations consistent with prior trauma. No other suspicious foci are seen. There is some uptake in the cervical spine and bilateral shoulders. IMPRESSION: 1. No scintigraphic evidence of osseous metastatic disease. 2. Healing right-sided anterior rib fractures, as described. Dictated by: Dictated on workstation # [id number]
== END ==
LOC: CARD 11:59
PROVIDERS: ATTEND Nurse Practitioner Adult Health
DX: C34.12 Malignant neoplasm of upper lobe, left bronchus or lung (principal); C79.51 Secondary malignant neoplasm of bone
CPT/HCPCS: 71260; 74178; 78306

== ENCOUNTER → 2018-05-12 | Outpatient (CLI) | payer MEDICAID ==
[~2018-05-12] MED LIST changes: -BARIUM SUSPENSION 2.1% (VANILLA SILQ) 450 ML PO ONE; -CATHETER FLUSH 10 ML SYR IV PRN; -IOHEXOL 350 MG/ML 100 ML (OMNIPAQUE 350) VIAL IV ONE; -NS 100 ML (IVPB) BAG IV ONE; -RECEIVED CONTRAST (Hold Metformin) IV SCH
--- NOTE | 2018-05-12 17:24 | Diagnostic Imaging Report ---
INDICATION: Recent fall. Right shoulder pain. COMPARISON: None FINDINGS: Four radiographic views of the right shoulder were obtained and show advanced osteoarthritic changes at the glenohumeral joint space. There is severe joint space narrowing with remodeling of the articular surfaces. Advanced subchondral cystic changes also noted involving both the humeral head and glenoid. No acute fracture or dislocation is identified. Acromiohumeral joint space is intact. No unexpected radiopaque foreign bodies are seen. Included portions of the right hemithorax are clear. Note is made of indwelling Port-A-Cath. IMPRESSION: 1. 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 Dictated by: Dictated on workstation # [id number]
--- NOTE | 2018-05-12 18:10 | Diagnostic Imaging Report ---
INDICATION: Injury, pain. FINDINGS: There is no fracture, dislocation or acute bony abnormality. Vascular calcifications and hip arthritis, chronic. IMPRESSION: No acute appearing abnormality. Dictated on workstation # [id number]
--- NOTE | 2018-05-12 18:13 | Diagnostic Imaging Report ---
INDICATION: Pain. FINDINGS: There are severe degenerative changes to the glenohumeral joint. The midshaft and distal humerus intact. Vascular calcifications. No opaque foreign body. No soft tissue gas. IMPRESSION: Severe degenerative changes to the shoulder, no acute bony abnormality. Dictated on workstation # [id number]
== END ==
LOC: RAD 15:17
PROVIDERS: ATTEND Family Medicine
DX: S79.911A Unspecified injury of right hip, initial encounter (principal); M19.011 Primary osteoarthritis, right shoulder; M79.621 Pain in right upper arm; W19.XXXA Unspecified fall, initial encounter
CPT/HCPCS: 73030; 73060; 73502

== ENCOUNTER → 2018-05-14 | Outpatient (CLI) | payer MEDICAID ==
[2018-05-14 15:12] LABS: BASOPHILS % (AUTO) 0 % (0-10); EOSINOPHILS % (AUTO) 0 % (0-10); HEMATOCRIT 34 % (40-54); HEMOGLOBIN 11.2 G/DL (13.3-17.7); LYMPHOCYTES # (AUTO) 0.5 X 10^3 (1.0-4.0); LYMPHOCYTES % (AUTO) 12 % (12-44); MEAN CORPUSCULAR HEMOGLOBIN 30 PG (25-34); MEAN CORPUSCULAR HGB CONC 33 G/DL (32-36); MEAN CORPUSCULAR VOLUME 90 FL (80-99); MEAN PLATELET VOLUME 8.3 FL (7.4-10.4); MONOCYTES # (AUTO) 0.6 X 10^3 (0.0-1.0); MONOCYTES % (AUTO) 13 % (0-12); NEUTROPHILS # (AUTO) 3.5 X 10^3 (1.8-7.8); NEUTROPHILS % (AUTO) 75 % (42-75); PLATELET COUNT 238 10^3/uL (130-400); RED CELL DISTRIBUTION WIDTH 14.3 % (10.0-14.5); WHITE BLOOD COUNT 4.6 10^3/uL (4.3-11.0)
--- NOTE | 2018-05-14 16:32 | Diagnostic Imaging Report ---
INDICATION: Cough and congestion. COMPARISON: Prior chest from 04/23/2018. EXAMINATION: Two views of the chest were obtained. FINDINGS: Right chest wall port has tip overlying the SVC right atrial junction. The heart size is stable. Lungs are hyperinflated. There are some patchy infiltrates in both bases, similar to prior exam. Mid and upper lung lo are clear. No significant effusion or pneumothorax is seen. IMPRESSION: Bibasilar pulmonary infiltrates, similar to the examination from 04/23/2018. Dictated by: Dictated on workstation # [id number]
== END ==
LOC: RAD 14:53
PROVIDERS: ATTEND Family Medicine
DX: R91.8 Other nonspecific abnormal finding of lung field (principal); R05 Cough; Z95.828 Presence of other vascular implants and grafts
CPT/HCPCS: 36415; 71046; 85025

== ENCOUNTER 2018-05-15 11:38 | Inpatient (IN) | payer MEDICAID ==
[~2018-05-15] VITALS: Ht 182.9 cm; Wt 73.0 kg
[2018-05-15] MEDS ORDERED: methylPREDNISolone 125 MG (Solu-MEDROL) VIAL IVP ONE (11:45)
[2018-05-15] MEDS ORDERED: RT-ALBUTEROL/IPRATROPIUM 3 ML (DUONEB) VIAL INH ONE (11:45)
[2018-05-15 12:28] LABS: BASOPHILS % (AUTO) 1 % (0-10); EOSINOPHILS % (AUTO) 0 % (0-10); HEMATOCRIT 33 % (40-54); LYMPHOCYTES # (AUTO) 0.7 X 10^3 (1.0-4.0); LYMPHOCYTES % (AUTO) 18 % (12-44); MEAN CORPUSCULAR HEMOGLOBIN 30 PG (25-34); MEAN CORPUSCULAR HGB CONC 33 G/DL (32-36); MEAN CORPUSCULAR VOLUME 89 FL (80-99); MEAN PLATELET VOLUME 8.1 FL (7.4-10.4); MONOCYTES # (AUTO) 0.7 X 10^3 (0.0-1.0); MONOCYTES % (AUTO) 17 % (0-12); NEUTROPHILS # (AUTO) 2.7 X 10^3 (1.8-7.8); NEUTROPHILS % (AUTO) 65 % (42-75); PLATELET COUNT 230 10^3/uL (130-400); RED CELL DISTRIBUTION WIDTH 14.5 % (10.0-14.5); WHITE BLOOD COUNT 4.2 10^3/uL (4.3-11.0)
--- NOTE | 2018-05-15 12:30 | ED General ---
General Chief Complaint: Abdominal/GI Problems Stated Complaint: STOMACH PAINS, NAUSEA, SOB Nursing Triage Note: ARRIVED VIA AMB TO ROOM 10. COMPLAINS OF N/V FOR A COUPLE OF DAYS. LAST CHEMO WAS 2 DAYS AGO AND HE RECIEVES IT EVERY TWO WEEKS. Nursing Sepsis Screen: No Definite Risk Source of Information: Patient Exam Limitations: No Limitations History of Present Illness Date Seen by Provider: May 15, 2018 Time Seen by Provider: 12:28 Initial Comments To ER with reports of nausea vomiting and generalized stomach upset for a couple of days. He is receiving chemotherapy every 2 weeks for lung cancer. He also reports increased cough productive of sputum. No fevers or chills. Received chemotherapy 2 days ago. Severity: Moderate Associated Systoms: Cough; No Fever/Chills; Nausea/Vomiting Allergies and Home Medications Allergies Coded Allergies: aspirin (Unverified Allergy, Mild, DOES NOT WORK WELL W/ OTHER MEDS, 03/09) ibuprofen (Unverified Allergy, Mild, 03/09/18) Home Medications Albuterol Sulfate 2.5 Mg/3 Ml Vial.neb, 2.5 MG NEB 5XD PRN for SHORTNESS OF BREATH, (Reported) Albuterol Sulfate 1 Puff Puff, 2 PUFF IH Q6H PRN for SHORTNESS OF BREATH, ( Reported) 1 PUFF = 90 MCG Amlodipine Besylate 5 Mg Tablet, 5 MG PO 0800, (Reported) Atorvastatin Calcium 10 Mg Tablet, 10 MG PO 0300, (Reported) Carbamazepine 200 Mg Tablet, 200 MG PO 0800,2300,0300, (Reported) Carbamazepine 200 Mg Tablet, 400 MG PO 1500, (Reported) TAKES 2 (200 MG) TABLETS Cefdinir 300 Mg Capsule, 300 MG PO BID Prescribed by: AMANDEEP GENAO on 04/24/18 0731 Fluticasone/Salmeterol 12 Gm Hfa.aer.ad, 2 PUFF INH BID, (Reported) Gabapentin 300 Mg Capsule, 300 MG PO 2300, (Reported) Gabapentin 600 Mg Tablet, 600 MG PO 0800,1500, (Reported) Hydrocodone/Acetaminophen 1 Each Tablet, 1 TAB PO Q6H PRN for PAIN-MODERATE, ( Reported) Lamotrigine 100 Mg Tablet, 100 MG PO 1500,2300, (Reported) Lamotrigine 25 Mg Tablet, 25 MG PO 1500,0300, (Reported) Levofloxacin 500 Mg Tablet, 500 MG PO MoWeFr, (Reported) Lisinopril 20 Mg Tablet, 20 MG PO 0300, (Reported) Omeprazole 20 Mg Capsule.dr, 20 MG PO DAILY PRN for HEARTBURN, (Reported) Ondansetron 4 Mg Tab.rapdis, 4 MG PO TID PRN for NAUSEA/VOMITING-1ST LINE, ( Reported) Phenytoin Sodium Extended 100 Mg Capsule, 200 MG PO 0800,1500, (Reported) TAKES 2 (100 MG) CAPSULES Phenytoin Sodium Extended 100 Mg Capsule, 100 MG PO 2300, (Reported) Tiotropium [place] 1 Inh Aerp, 1 CAP IH DAILY, (Reported) Patient Home Medication List Home Medication List Reviewed: Yes Review of Systems Review of Systems Constitutional: see HPI; No chills, No fever EENTM: see HPI Respiratory: see HPI, cough Cardiovascular: no symptoms reported Gastrointestinal: nausea, vomiting Genitourinary: no symptoms reported Musculoskeletal: no symptoms reported Skin: no symptoms reported Psychiatric/Neurological: No Symptoms Reported Hematologic/Lymphatic: No Symptoms Reported Past Ynmrywz-Llkxjk-Lvhtkc Hx Patient Social History Alcohol Use: Denies Use Recreational Drug Use: No Smoking Status: Former Smoker Type Used: Cigars, Cigarettes Former Smoker, Quit: Feb 12, 2017 2nd Hand Smoke Exposure: No (quit in 2017) Recent Foreign Travel: No Contact w/Someone Who Travel: No Recent Infectious Disease Expo: No Recent Hopitalizations: Yes Immunizations Up To Date Tetanus Booster (TDap): Unknown PED Vaccines UTD: Yes Date of Influenza Vaccine: Apr 21, 2018 Seasonal Allergies Seasonal Allergies: Yes Past Medical History Surgeries: Yes (RIGHT PORT) Gallbladder Respiratory: Yes (METASTATIC LUNG CANCER DX 05/2017; COPD) Asthma, Pneumonia, Chronic Bronchitis, Sleep Apnea, COPD Currently Using CPAP: No Currently Using BIPAP: No Cardiac: Yes High Cholesterol, Hypertension Neurological: Yes (post polio syndrome with left-sided deficits) Seizure Disorder, Vertigo Reproductive Disorders: No Sexually Transmitted Disease: No HIV/AIDS: No Genitourinary: No Gastrointestinal: Yes (CHRONIC NAUSEA/VOMITING) Musculoskeletal: Yes Arthritis, Fractures Endocrine: No HEENT: No Loss of Vision: Denies Hearing Impairment: Denies Cancer: Yes Lung Did You Recieve Any Treatments: Yes What Type of Treatment Did You: Chemotherapy Psychosocial: No Integumentary: No Blood Disorders: No Adverse Reaction/Blood Tranf: No Family Medical History Hypercholesterolemia 19 FATHER Hypertension 19 FATHER No Pertinent Family Hx, Heart Disease Physical Exam Vital Signs Vital Signs - First Documented 05/15/18 11:50 Temp 97.0 Pulse 20 B/P (MAP) 98/76 (83) Pulse Ox 98 O2 Delivery Nasal Cannula O2 Flow Rate 3.00 Capillary Refill : Less Than 3 Seconds Height, Weight, BMI Height: 6'0.00" Weight: 161lbs. 6.0oz. 73.282888pj; 23.2 BMI Method:Stated General Appearance: No Apparent Distress, WD/WN Eyes: Bilateral Eye Normal Inspection, Bilateral Eye PERRL, Bilateral Eye EOMI HEENT: Other (he is wearing an [place] collar. History of nondisplaced dens fracture.) Neck: Full Range of Motion, Normal Inspection Respiratory: No Accessory Muscle Use, No Respiratory Distress, Rhonci (and wheezing right lung) Gastrointestinal: Normal Bowel Sounds, Non Tender, Soft Extremity: Normal Capillary Refill, Normal Inspection Neurologic/Psychiatric: Alert, Oriented x3, No Motor/Sensory Deficits Skin: Normal Color, Warm/Dry Procedures/Interventions Date of ETT Placement: Mar 09, 2017 Time of ETT Placement: 1811 Suture Size: 5-0 Progress/Results/Core Measures Suspected Sepsis Recent Fever Within 48 Hours: No Infection Criteria Present: None New/Unexplained Altered Menta: No Sepsis Screen: No Definite Risk SIRS Temperature:97.0 Pulse: 20 Respiratory Rate: Laboratory Tests 05/15/18 12:15: White Blood Count 4.2L Blood Pressure 98 /76 Mean: 83 Laboratory Tests 05/15/18 12:15: Creatinine 0.77, Platelet Count 230, Total Bilirubin 0.3 Results/Orders Lab Results Laboratory Tests Test 05/15/18 12:15 05/15/18 12:26 Range/Units White Blood Count 4.2 L 4.3-11.0 10^3/uL Red Blood Count 3.72 L 4.35-5.85 10^6/uL Hemoglobin 11.0 L 13.3-17.7 G/DL Hematocrit 33 L 40-54 % Mean Corpuscular Volume 89 80-99 FL Mean Corpuscular Hemoglobin 30 25-34 PG Mean Corpuscular Hemoglobin Concent 33 32-36 G/DL Red Cell Distribution Width 14.5 10.0-14.5 % Platelet Count 230 130-400 10^3/uL Mean Platelet Volume 8.1 7.4-10.4 FL Neutrophils (%) (Auto) 65 42-75 % Lymphocytes (%) (Auto) 18 12-44 % Monocytes (%) (Auto) 17 H 0-12 % Eosinophils (%) (Auto) 0 0-10 % Basophils (%) (Auto) 1 0-10 % Neutrophils # (Auto) 2.7 1.8-7.8 X 10^3 Lymphocytes # (Auto) 0.7 L 1.0-4.0 X 10^3 Monocytes # (Auto) 0.7 0.0-1.0 X 10^3 Eosinophils # (Auto) 0.0 0.0-0.3 10^3/uL Basophils # (Auto) 0.0 0.0-0.1 10^3/uL Sodium Level 126 L 135-145 MMOL/L Potassium Level 4.6 3.6-5.0 MMOL/L Chloride Level 91 L 98-107 MMOL/L Carbon Dioxide Level 25 21-32 MMOL/L Anion Gap 10 5-14 MMOL/L Blood Urea Nitrogen 14 7-18 MG/DL Creatinine 0.77 0.60-1.30 MG/DL Estimat Glomerular Filtration Rate > 60 BUN/Creatinine Ratio 18 Glucose Level 116 H 70-105 MG/DL Calcium Level 8.8 8.5-10.1 MG/DL Corrected Calcium 8.9 8.5-10.1 MG/DL Total Bilirubin 0.3 0.1-1.0 MG/DL Aspartate Amino Transf (AST/SGOT) 32 5-34 U/L Alanine Aminotransferase (ALT/SGPT) 13 0-55 U/L Alkaline Phosphatase 188 H 40-136 U/L Total Protein 7.6 6.4-8.2 GM/DL Albumin 3.9 3.2-4.5 GM/DL Lipase < 4 L 8-78 U/L Blood Gas Puncture Site R BRACHIAL Blood Gas Patient Temperature 97.0 Arterial Blood pH 7.42 7.37-7.43 Arterial Blood Partial Pressure CO2 42 35-45 MMHG Arterial Blood Partial Pressure O2 84 79-93 MMHG Arterial Blood HCO3 27 23-27 MMOL/L Arterial Blood Total CO2 27.9 21.0-31.0 MMOL/L Arterial Blood Oxygen Saturation 97 94-100 % Arterial Blood Base Excess 2.2 -2.5-2.5 MMOL/L Johan Test YES-POS Blood Gas Ventilator Setting NO Blood Gas Inspired Oxygen 3 My Orders Orders - NOREEN CHÁVEZ SERVICES REP Cbc With Automated Diff (05/15/18 11:44) Comprehensive Metabolic Panel (05/15/18 11:44) Lipase (05/15/18 11:44) Iv Heplock-Insert (Order) (05/15/18 11:44) Chest Pa/Lat (2 View) (05/15/18 11:44) Albuterol/Ipra Inhalation Soln (Duoneb I (05/15/18 11:45) Svn Small Volume Nebulizer (05/15/18 11:44) Methylprednisolone Sod Succ (Solu-Medrol (05/15/18 11:45) Arterial Blood Draw (05/15/18 ) Medications Given in ED Current Medications Medications Dose Ordered Sig/Porfirio Route Start Time Stop Time Status Last Admin Dose Admin Albuterol/ Ipratropium 3 ml ONCE ONCE INH 05/15/18 11:45 05/15/18 11:46 DC 05/15/18 12:31 3 ML Methylprednisolone Sodium Succinate 125 mg ONCE ONCE IVP 05/15/18 11:45 05/15/18 11:46 DC 05/15/18 13:14 125 MG Vital Signs/I&O 05/15/18 05/15/18 11:50 12:33 Temp 97.0 Pulse 20 B/P (MAP) 98/76 (83) Pulse Ox 98 98 O2 Delivery Nasal Cannula Nasal Cannula O2 Flow Rate 3.00 3.00 Capillary Refill : Less Than 3 Seconds Blood Pressure Mean: 83 Departure Communication (Admissions) Time/Spoke to Admitting Phy: 14:[address] Swenson. We will admit the patient given his nausea and likely inability to take oral antibiotics. We'll use Zosyn for the bibasilar pneumonia. No fevers. We'll collect a sputum culture. We'll consult his oncologist Dr. Cardoza. Time/Spoke to Consulting Phy: 14:39 I discussed the case with Dr. Cardoza. He agrees with plan of care and to consult Impression Primary Impression: bibasilar pneumonia Additional Impressions: Acute hyponatremia Nausea & vomiting Qualified Codes: R11.2 - Nausea with vomiting, unspecified chemotherapy side effect Disposition: ADMITTED INPATIENT Condition: Stable Admissions Decision to Admit Reason: Admit from ER (General) Decision to Admit/Date: May 15, 2018 Time/Decision to Admit Time: 12:30 Departure-Patient Inst. Referrals: AMANDEEP GENAO DO (PCP/Family) Primary Care Physician NOREEN CHÁVEZ APRN May 15, 2018 12:30
[2018-05-15 12:39] LABS: ABG BASE EXCESS 2.2 MMOL/L (-2.5-2.5); ABG OXYGEN SATURATION 97 % (94-100); ABG PCO2 42 MMHG (35-45); ABG PH 7.42 (7.37-7.43); ABG PO2 84 MMHG (79-93); ABG TCO2 27.9 MMOL/L (21.0-31.0); ALLENS TEST YES-POS; INSPIRED O2 3; VENTILATOR NO
[2018-05-15 12:45] LABS: ALANINE AMINOTRANSFERASE 13 U/L (0-55); ALBUMIN 3.9 GM/DL (3.2-4.5); ALKALINE PHOSPHATASE 188 U/L (40-136); BILIRUBIN,TOTAL 0.3 MG/DL (0.1-1.0); BUN/CREATININE RATIO 18; CALCIUM 8.8 MG/DL (8.5-10.1); CARBON DIOXIDE 25 MMOL/L (21-32); CHLORIDE 91 MMOL/L (98-107); CREATININE SERUM 0.77 MG/DL (0.60-1.30); GFR ESTIMATED > 60; GLUCOSE 116 MG/DL (70-105); LIPASE < 4 U/L (8-78); POTASSIUM 4.6 MMOL/L (3.6-5.0); SODIUM 126 MMOL/L (135-145); TOTAL PROTEIN 7.6 GM/DL (6.4-8.2)
--- NOTE | 2018-05-15 13:06 | Diagnostic Imaging Report ---
INDICATION: Shortness of breath. EXAMINATION: PA and lateral chest. FINDINGS: There is some atelectasis at the right medial lung base. There is some faint infiltrate in the left lung base. There are emphysematous changes in the lungs. The right IJ Port-A-Cath tip projects over the SVC. IMPRESSION: Bilateral basilar infiltrate and/or atelectasis. No appreciable change compared to the previous day. The patient has underlying COPD. Dictated by: Dictated on workstation # [id number]
[2018-05-15] MEDS ORDERED: ONDANSETRON 4 MG/2 ML (SDV) Z0FRAN IVP ONE (14:45)
[2018-05-15] MEDS ORDERED: PIPERACILLIN/TAZOBACTAM (BULK) 4.5 GM in NS (IVPB) 100 ML IV ONE (14:45)
--- NOTE | 2018-05-15 16:45 | NUR ---
LAB CONTACTED FOR BLOOD DRAW.
--- OUTSIDE RECORDS SUMMARY | 2018-05-15 16:45 | XMS REPORT | Clinical Summary ---
Author Author [facility] Organization [facility] Address Unknown Phone Unavailable Care Team Providers Care [employer] Operator Name Role Phone Efra Valentino MD Unavailable Source Comments Some departments are not documenting in the electronic medical record. If you do not see the information that you expected, contact Release of Information in the Health Information Management department at [phone] for further assistance in locating additional records.[facility] Allergies Comments Active Allergy Reactions Severity [...]
--- NOTE | 2018-05-15 16:53 | NUR ---
ATTEMPT TO CALL REPORT TO RN ET SHE IS BUSY AT THIS TIME AND WILL CALL BACK.
[2018-05-15] MEDS ORDERED: CATHETER FLUSH 10 ML SYR IV PRN (18:00)
[2018-05-15] MEDS: NS IV 1000 ML 1,000 ML IV SCH (18:05)
[2018-05-15] MEDS ORDERED: guaiFENesin/CODEINE (ROBITUSSIN AC) 10ML UDC PO PRN (19:00)
[2018-05-15] MEDS ORDERED: DOCUSATE SODIUM 100 MG (COLACE) CAP PO PRN (19:00)
[2018-05-15] MEDS ORDERED: ONDANSETRON 4 MG (ZOFRAN) ORAL DISSOLVE TAB PO PRN (19:00)
[2018-05-15] MEDS ORDERED: LOPERAMIDE 2 MG (IMODIUM) CAP PO PRN (19:00)
[2018-05-15] MEDS ORDERED: NON-FORMULARY MEDICATION 1 EA EA (Hydrocodone/Acetaminophen (Hydrocodone-Acetamin 5-325 mg PO PRN (19:00)
[2018-05-15] MEDS ORDERED: CALCIUM CARBONATE 500 MG (TUMS) TAB.CHEW PO PRN (19:00)
[2018-05-15] MEDS ORDERED: diphenhydrAMINE 25 MG TAB (BENADRYL) PO PRN (19:00)
[2018-05-15] MEDS ORDERED: ALPRAZolam 0.25 MG (XANAX) TAB PO PRN (19:00)
[2018-05-15] MEDS ORDERED: OMEPRAZOLE 20 MG (PriLOSEC) CAP NON-FORMULARY PO PRN (19:00)
[2018-05-15] MEDS ORDERED: fentaNYL INJECTION 100 MCG/2 ML AMP IVP PRN (19:00)
[2018-05-15] MEDS ORDERED: MELATONIN 3 MG TABLET PO PRN (19:00)
[2018-05-15] MEDS ORDERED: ONDANSETRON 4 MG/2 ML (SDV) Z0FRAN IVP PRN (19:00)
[2018-05-15] MEDS ORDERED: PANTOPRAZOLE 20 MG TABLET (PROTONIX) PO PRN (19:15)
[2018-05-15] MEDS ORDERED: carBAMazepine 200 MG (TEGretol) TAB PO ONE ×3 (19:55→23:00)
[2018-05-15] MEDS ORDERED: PHENYTOIN 100 MG (DILANTIN) CAP PO ONE ×3 (19:56→23:00)
[2018-05-15] MEDS ORDERED: GABAPENTIN 300 MG (NEURONTIN) CAP ONE (19:56)
[2018-05-15] MEDS ORDERED: RT-ADVAIR HFA 115/21 MCG PER PUFF IH SCH (21:00)
[2018-05-15] MEDS ORDERED: GABAPENTIN 300 MG (NEURONTIN) CAP PO ONE ×2 (21:00→23:00)
[2018-05-15] MEDS ORDERED: RT-ALBUTEROL/IPRATROPIUM 3 ML (DUONEB) VIAL INH PRN (21:15)
[2018-05-15] MEDS: PIPERACILLIN/TAZO 4.5 GM/NS 100 ML IV SCH ×2 (21:30)
[2018-05-15] MEDS: methylPREDNISolone 125 MG (Solu-MEDROL) VIAL IV SCH (21:30)
[2018-05-15] MEDS: ACETAMINOPHEN 500 MG TAB (TYLENOL) PO PRN (21:30)
[2018-05-15 21:43] VITALS: BP 112/73
[2018-05-15] MEDS ORDERED: carBAMazepine 200 MG (TEGretol) TAB PO SCH (23:00)
[2018-05-15] MEDS ORDERED: NON-FORMULARY MEDICATION 1 EA EA (Lamotrigine 100 MG) PO SCH (23:00)
[2018-05-15] MEDS ORDERED: CARBAMAZEPINE 200 MG PO SCH (23:00)
[2018-05-15] MEDS ORDERED: NON-FORMULARY MEDICATION 1 EA EA (Phenytoin Sodium Extended 100 MG) PO SCH (23:00)
[2018-05-15] MEDS ORDERED: PHENYTOIN 100 MG (DILANTIN) CAP PO SCH (23:00)
[2018-05-15] MEDS ORDERED: GABAPENTIN 300 MG (NEURONTIN) CAP PO SCH (23:00)
[2018-05-15] MEDS: RT-ALBUTEROL/IPRATROPIUM 3 ML (DUONEB) VIAL INH SCH (23:17)
[2018-05-15] MEDS: RT-ADVAIR HFA 115/21 MCG PER PUFF IH SCH (23:17)
[2018-05-16] VITALS (7 sets, daily range): BP systolic 105–148; BP diastolic 55–78
[2018-05-16] MEDS: NS IV 1000 ML 1,000 ML IV SCH ×4 (01:01→22:06)
[2018-05-16] MEDS ORDERED: carBAMazepine 200 MG (TEGretol) TAB PO ONE (01:06)
[2018-05-16] MEDS ORDERED: PHENYTOIN 100 MG (DILANTIN) CAP PO ONE (01:07)
[2018-05-16] MEDS ORDERED: GABAPENTIN 300 MG (NEURONTIN) CAP ONE (01:07)
[2018-05-16] MEDS ORDERED: lamoTRIgine 25 MG (LaMICtal) TAB PO SCH (03:00)
[2018-05-16] MEDS ORDERED: LAMOTRIGINE 25 MG PO SCH (03:00)
[2018-05-16] MEDS ORDERED: ATORVASTATIN 40 MG (LIPITOR) TABLET PO SCH (03:00)
[2018-05-16] MEDS: RT-ALBUTEROL/IPRATROPIUM 3 ML (DUONEB) VIAL INH SCH ×5 (03:23→18:57)
[2018-05-16 03:47] LABS: BASOPHILS % (AUTO) 0 % (0-10); EOSINOPHILS % (AUTO) 0 % (0-10); HEMATOCRIT 28 % (40-54); HEMOGLOBIN 9.3 G/DL (13.3-17.7); LYMPHOCYTES # (AUTO) 0.5 X 10^3 (1.0-4.0); LYMPHOCYTES % (AUTO) 19 % (12-44); MEAN CORPUSCULAR HEMOGLOBIN 30 PG (25-34); MEAN CORPUSCULAR HGB CONC 33 G/DL (32-36); MEAN CORPUSCULAR VOLUME 90 FL (80-99); MEAN PLATELET VOLUME 8.2 FL (7.4-10.4); MONOCYTES # (AUTO) 0.3 X 10^3 (0.0-1.0); MONOCYTES % (AUTO) 12 % (0-12); NEUTROPHILS # (AUTO) 1.7 X 10^3 (1.8-7.8); NEUTROPHILS % (AUTO) 70 % (42-75); PLATELET COUNT 201 10^3/uL (130-400); RED CELL DISTRIBUTION WIDTH 14.6 % (10.0-14.5); WHITE BLOOD COUNT 2.4 10^3/uL (4.3-11.0)
[2018-05-16] MEDS ORDERED: ATORVASTATIN 10 MG (LIPITOR) TABLET ONE (04:20)
[2018-05-16 04:22] LABS: ALANINE AMINOTRANSFERASE 13 U/L (0-55); ALBUMIN 3.4 GM/DL (3.2-4.5); ALKALINE PHOSPHATASE 140 U/L (40-136); BILIRUBIN,TOTAL 0.2 MG/DL (0.1-1.0); BUN/CREATININE RATIO 14; CALCIUM 8.1 MG/DL (8.5-10.1); CARBON DIOXIDE 24 MMOL/L (21-32); CHLORIDE 98 MMOL/L (98-107); CREATININE SERUM 0.74 MG/DL (0.60-1.30); GFR ESTIMATED > 60; GLUCOSE 135 MG/DL (70-105); POTASSIUM 4.3 MMOL/L (3.6-5.0); SODIUM 130 MMOL/L (135-145); TOTAL PROTEIN 6.3 GM/DL (6.4-8.2)
[2018-05-16] MEDS: lisINopril 20 MG (PRINIVIL) TABLET PO SCH (04:32)
[2018-05-16] MEDS: ATORVASTATIN 10 MG (LIPITOR) TABLET PO SCH (04:32)
[2018-05-16] MEDS: PIPERACILLIN/TAZO 4.5 GM/NS 100 ML IV SCH ×6 (04:32→22:06)
--- NOTE | 2018-05-16 05:36 | Pulmonary Progress Note ---
Sepsis Event Evaluation Height, Weight, BMI Height: 6'0.00" Weight: 161lbs. 0.0oz. 73.558321tg; 21.8 BMI Method:Stated Focused Exam Lactate Level 05/15/18 16:49: Lactic Acid Level 0.66 Exam Exam Vital Signs Date Time Temp Pulse Resp B/P (MAP) Pulse Ox O2 Delivery O2 Flow Rate FiO2 05/16/18 04:31 97.7 72 16 140/78 (98) 96 Nasal Cannula 3.00 05/16/18 03:25 94 Nasal Cannula 3.00 05/16/18 01:16 98.0 73 18 136/73 (94) 99 Nasal Cannula 3.00 05/16/18 01:00 65 05/15/18 23:21 95 Nasal Cannula 3.00 05/15/18 21:43 97.6 64 18 112/73 (86) 99 Nasal Cannula 3.00 05/15/18 20:42 73 94 05/15/18 20:00 95 Nasal Cannula 3.00 05/15/18 18:28 97.4 Nasal Cannula 3.00 05/15/18 18:24 Nasal Cannula 3.00 05/15/18 18:05 85 05/15/18 17:27 81 16 109/73 (85) 98 Room Air 05/15/18 12:33 98 Nasal Cannula 3.00 05/15/18 11:50 97.0 20 98/76 (83) 98 Nasal Cannula 3.00 I & O 05/16/18 07:00 Intake Total 1000 ml Output Total 675 ml Balance 325 ml Height & Weight Height: 6'0.00" Weight: 161lbs. 0.0oz. 73.964732oa; 21.8 BMI Method:Stated General Appearance: No Apparent Distress, WD/WN HEENT: Other (he is wearing an [place] collar. History of nondisplaced dens fracture.) Neck: Full Range of Motion, Normal Inspection Respiratory: No Accessory Muscle Use, No Respiratory Distress, Rhonci (and wheezing right lung) Capillary Refill: Less Than 3 Seconds Extremity: Normal Capillary Refill, Normal Inspection Neurologic/Psychiatric: Alert, Oriented x3, No Motor/Sensory Deficits Skin: Normal Color, Warm/Dry Results Lab Laboratory Tests 05/15/18 12:15 05/16/18 03:30 Assessment/Plan Assessment/Plan Pneumonia with hypoxia and atelectasis -Zosyn - -urine strep and legionella ag negative left Metastatic lung cancer to left femur -Last chemo was 2 wks ago -Missed chemo this week due to illness Seizures -CT head is neg, carotid US shows insignificant plaques bilaterally -Home meds restarted, levels pending -Seizure precautions Hypotension, resolved [place], resolved -Improved with IVF 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
[2018-05-16] MEDS: RT-ADVAIR HFA 115/21 MCG PER PUFF IH SCH ×2 (06:37→18:57)
[2018-05-16] MEDS: methylPREDNISolone 125 MG (Solu-MEDROL) VIAL IV SCH (06:52)
--- NOTE | 2018-05-16 06:58 | Pulmonary Consultation ---
History of Present Illness History of Present Illness Date of Consultation 05/16/18 06:53 Time Seen by Provider: 06:58 Date of Admission History of Present Illness 62yo with hx of multiple hospitalizations, severe oxygen dependent COPD, metastatic lung cancer with bone mets last chemo was 2 days ago presented secondary to N/V no abdominal noriega. also complains cough productive of sputum. No fevers or chills. Allergies and Home Medications Allergies Coded Allergies: aspirin (Unverified Allergy, Mild, DOES NOT WORK WELL W/ OTHER MEDS, 03/09) ibuprofen (Unverified Allergy, Mild, 03/09/18) Home Medications Albuterol Sulfate 2.5 Mg/3 Ml Vial.neb, 2.5 MG NEB 5XD PRN for SHORTNESS OF BREATH, (Reported) Albuterol Sulfate 1 Puff Puff, 2 PUFF IH Q6H PRN for SHORTNESS OF BREATH, ( Reported) 1 PUFF = 90 MCG Amlodipine Besylate 5 Mg Tablet, 5 MG PO 0800, (Reported) Atorvastatin Calcium 10 Mg Tablet, 10 MG PO 0300, (Reported) Carbamazepine 200 Mg Tablet, 200 MG PO 0800,2300,0300, (Reported) Carbamazepine 200 Mg Tablet, 400 MG PO 1500, (Reported) TAKES 2 (200 MG) TABLETS Cefdinir 300 Mg Capsule, 300 MG PO BID Prescribed by: AMANDEEP GENAO on 04/24/18 0731 Fluticasone/Salmeterol 12 Gm Hfa.aer.ad, 2 PUFF INH BID, (Reported) Gabapentin 300 Mg Capsule, 300 MG PO 2300, (Reported) Gabapentin 600 Mg Tablet, 600 MG PO 0800,1500, (Reported) Hydrocodone/Acetaminophen 1 Each Tablet, 1 TAB PO Q6H PRN for PAIN-MODERATE, ( Reported) Lamotrigine 100 Mg Tablet, 100 MG PO 1500,2300, (Reported) Lamotrigine 25 Mg Tablet, 25 MG PO 1500,0300, (Reported) Levofloxacin 500 Mg Tablet, 500 MG PO MoWeFr, (Reported) Lisinopril 20 Mg Tablet, 20 MG PO 0300, (Reported) Omeprazole 20 Mg Capsule.dr, 20 MG PO DAILY PRN for HEARTBURN, (Reported) Ondansetron 4 Mg Tab.rapdis, 4 MG PO TID PRN for NAUSEA/VOMITING-1ST LINE, ( Reported) Phenytoin Sodium Extended 100 Mg Capsule, 200 MG PO 0800,1500, (Reported) TAKES 2 (100 MG) CAPSULES Phenytoin Sodium Extended 100 Mg Capsule, 100 MG PO 2300, (Reported) Tiotropium [place] 1 Inh Aerp, 1 CAP IH DAILY, (Reported) Past Rwfexnw-Emikcl-Ptzbnn Hx Patient Social History Alcohol Use: Denies Use Recreational Drug Use: No Smoking Status: Former Smoker Type Used: Cigars, Cigarettes Former Smoker, Quit: Feb 12, 2017 2nd Hand Smoke Exposure: No (quit in 2016) Recent Foreign Travel: No Contact w/Someone Who Travel: No Recent Infectious Disease Expo: No Recent Hopitalizations: Yes Immunizations Up To Date Tetanus Booster (TDap): Unknown PED Vaccines UTD: Yes Date of Influenza Vaccine: Apr 21, 2018 Seasonal Allergies Seasonal Allergies: Yes Past Medical History Surgeries: Yes (RIGHT PORT) Gallbladder Respiratory: Yes (METASTATIC LUNG CANCER DX 05/2017; COPD) Asthma, Pneumonia, Chronic Bronchitis, Sleep Apnea, COPD Currently Using CPAP: No Currently Using BIPAP: No Cardiac: Yes High Cholesterol, Hypertension Neurological: Yes (post polio syndrome with left-sided deficits) Seizure Disorder, Vertigo Reproductive Disorders: No Sexually Transmitted Disease: No HIV/AIDS: No Genitourinary: No Gastrointestinal: Yes (CHRONIC NAUSEA/VOMITING) Musculoskeletal: Yes Arthritis, Fractures Endocrine: No HEENT: No Loss of Vision: Denies Hearing Impairment: Denies Cancer: Yes Lung Did You Recieve Any Treatments: Yes What Type of Treatment Did You: Chemotherapy Psychosocial: No Integumentary: No Blood Disorders: No Adverse Reaction/Blood Tranf: No Family Medical History Hypercholesterolemia 19 FATHER Hypertension 19 FATHER No Pertinent Family Hx, Heart Disease Review of Systems Time Seen by Provider: 06:57 Constitutional: Sweats, Weakness, Malaise; No: Fever, Chills, Other Eyes: No: Pain, Vision change, Conjunctivae inflammation, Eyelid inflammation, Other, Redness ENT: Nose discharge, Nose congestion; No: Ear pain, Ear discharge, Nose pain, Mouth pain, Mouth swelling, Throat pain, Throat swelling, Other Respiratory: Cough, Dry, Shortness of breath Gastrointestinal: Nausea, Vomiting; No: Abdominal Pain Sepsis Event Evaluation Height, Weight, BMI Height: 6'0.00" Weight: 161lbs. 0.0oz. 73.405876gl; 21.8 BMI Method:Stated Exam Exam Vital Signs Date Time Temp Pulse Resp B/P (MAP) Pulse Ox O2 Delivery O2 Flow Rate FiO2 05/16/18 06:37 93 Nasal Cannula 3.00 05/16/18 04:31 97.7 72 16 140/78 (98) 96 Nasal Cannula 3.00 05/16/18 03:25 94 Nasal Cannula 3.00 05/16/18 01:16 98.0 73 18 136/73 (94) 99 Nasal Cannula 3.00 05/16/18 01:00 65 05/15/18 23:21 95 Nasal Cannula 3.00 05/15/18 21:43 97.6 64 18 112/73 (86) 99 Nasal Cannula 3.00 05/15/18 20:42 73 94 05/15/18 20:00 95 Nasal Cannula 3.00 05/15/18 18:28 97.4 Nasal Cannula 3.00 05/15/18 18:24 Nasal Cannula 3.00 05/15/18 18:05 85 05/15/18 17:27 81 16 109/73 (85) 98 Room Air 05/15/18 12:33 98 Nasal Cannula 3.00 05/15/18 11:50 97.0 20 98/76 (83) 98 Nasal Cannula 3.00 I & O 05/16/18 07:00 Intake Total 1600 ml Output Total 1275 ml Balance 325 ml Height & Weight Height: 6'0.00" Weight: 161lbs. 0.0oz. 73.548604eu; 21.8 BMI Method:Stated General Appearance: No Apparent Distress, WD/WN HEENT: Other (he is wearing an [place] collar. History of nondisplaced dens fracture.) Neck: Full Range of Motion, Normal Inspection Respiratory: No Accessory Muscle Use, No Respiratory Distress, Crackles, Rhonci (and wheezing right lung) Capillary Refill: Less Than 3 Seconds Extremity: Normal Capillary Refill, Normal Inspection Neurologic/Psychiatric: Alert, Oriented x3, No Motor/Sensory Deficits Skin: Normal Color, Warm/Dry Results Lab Laboratory Tests 05/15/18 12:15 05/16/18 03:30 Assessment/Plan Assessment/Plan bibasilar Pneumonia with hypoxia and atelectasis -Zosyn -IS left Metastatic lung cancer to left femur -undergoing chemotherapy last chemo 3 days ago Seizures -Last CT head is neg, carotid US shows insignificant plaques bilaterally -Seizure precautions -Home meds 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
[2018-05-16] MEDS: carBAMazepine 200 MG (TEGretol) TAB PO SCH ×3 (07:53→23:10)
[2018-05-16] MEDS: PHENYTOIN 100 MG (DILANTIN) CAP PO SCH ×3 (07:54→23:10)
[2018-05-16] MEDS: amLODIPine 5 MG (NORVASC) TAB PO SCH (07:54)
[2018-05-16] MEDS ORDERED: PHENYTOIN 100 MG (DILANTIN) CAP PO SCH (08:00)
[2018-05-16] MEDS ORDERED: NON-FORMULARY MEDICATION 1 EA EA (Phenytoin Sodium Extended 200 MG) PO SCH (08:00)
[2018-05-16] MEDS ORDERED: NON-FORMULARY MEDICATION 1 EA EA (Amlodipine Besylate 5 MG) PO SCH (08:00)
[2018-05-16] MEDS ORDERED: GABAPENTIN 600 MG (NEURONTIN) TAB PO SCH (08:00)
[2018-05-16] MEDS ORDERED: TIOTROPIUM BROMIDE (SPIRIVA) 5'S INHALER IH SCH (09:00)
--- NOTE | 2018-05-16 11:12 | History & Physical-Hospitalist ---
History of Present Illness HPI/Chief Complaint CC: Pneumonia HPI: This is a 62yoWM known to be from prior and frequent hospitalizations who presents to the ER with dyspnea and fever and found to have pneumonia. Pt has h/ o lung cancer and seizures and warranted placement in the cardiac step down unit due to high risk for decompensation. Dr Hoffman has seen him in consultation and updated me that he is not on chemotherapy so any neutropenia is due to the acute illness and not immunosuppressives. Currently patient is much improved and all home meds will be restarted to his exact spec and frequencies. Source: patient Date Seen 05/16/18 Time Seen by a Provider: 11:30 Attending Physician Hollie Ellison DO PCP Micky Feng DO Referring Physician Date of Admission May 15, 2018 at 13:27 Home Medications & Allergies Home Medications Reviewed patient Home Medication Reconciliation performed by pharmacy medication reconciliations crime scene technician and/or nursing. Patients Allergies have been reviewed. Allergies Allergies Coded Allergies aspirin (Unverified Allergy, Mild, DOES NOT WORK WELL W/ OTHER MEDS, 03/09/18) ibuprofen (Unverified Allergy, Mild, 03/09/18) Past Hnmgknl-Kmmaja-Ibjhhv Hx Past Med/Social Hx: Reviewed Nursing Past Med/Soc Hx, Reviewed and Corrections made Patient Social History Employed/Student: unemployed Alcohol Use: Denies Use Recreational Drug Use: No Smoking Status: Former Smoker Former Smoker, Quit: Feb 12, 2017 Type Used: Cigars, Cigarettes 2nd Hand Smoke Exposure: No (quit in 2016) Recent Foreign Travel: No Contact w/other who traveled: No Recent Hopitalizations: Yes Recent Infectious Disease Expo: No Immunizations Up To Date Tetanus Booster (TDap): Unknown Pediatric: Yes Date of Influenza Vaccine: Apr 21, 2018 Seasonal Allergies Seasonal Allergies: Yes Past Medical History Surgeries: Gallbladder Respiratory: COPD, Emphysema, Pneumonia Currently Using CPAP: No Currently Using BIPAP: No Cardiac: High Cholesterol, Hypertension Neurological: Neuropathy, Seizure Disorder, Vertigo Reproductive: No Sexually Transmitted Disease: No HIV/AIDS: No Musculoskeletal: Arthritis, Fractures Loss of Vision: Denies Hearing Impairment: Denies Cancer: Lung Did You Recieve Any Treatments: Yes What Type of Treatment Did You: Chemotherapy History of Blood Disorders: No Adverse Reaction to Blood Salcedo: No Family History Hypercholesterolemia 19 FATHER Hypertension 19 FATHER No Pertinent Family Hx, Heart Disease Review of Systems Constitutional: see HPI, weakness EENTM: no symptoms reported Respiratory: cough, dyspnea on exertion, short of breath, wheezing Cardiovascular: no symptoms reported Gastrointestinal: loss of appetite Genitourinary: no symptoms reported Musculoskeletal: no symptoms reported Skin: no symptoms reported Psychiatric/Neurological: No Symptoms Reported All Other Systems Reviewed Negative Unless Noted: Yes Physical Exam Physical Exam Vital Signs Vital Signs - First Documented 05/15/18 05/15/18 11:50 17:27 Temp 97.0 Pulse 20 Resp 16 B/P (MAP) 98/76 (83) Pulse Ox 98 O2 Delivery Nasal Cannula O2 Flow Rate 3.00 Capillary Refill : Less Than 3 Seconds Height, Weight, BMI Height: 6'0.00" Weight: 161lbs. 0.0oz. 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 Assessment/Plan Admission Diagnosis Bilateral Pneumonia Hypoxia Metastatic lung cancer Seizures Hyponatremia Plan: Home meds Abx O2 Nebs Admission Status: Inpatient Order (span 2 midnights) Reason for Inpatient Admission: Pneumonia in lung cancer patient will require 3 days Diagnosis/Problems Diagnosis/Problems (1) RLL pneumonia Status: Acute Qualifiers: Pneumonia type: due to unspecified organism Qualified Codes: J18.1 - Lobar pneumonia, unspecified organism (2) Acute hyponatremia Status: Acute (3) Hx of seizure disorder Status: Acute (4) Lung cancer metastatic to bone Status: Chronic (5) Neutropenia Status: Acute Qualifiers: Neutropenia type: due to infection Qualified Codes: D70.3 - Neutropenia due to infection (6) Nausea & vomiting Status: Acute Qualifiers: Vomiting type: unspecified Vomiting Intractability: unspecified Qualified Codes: R11.2 - Nausea with vomiting, unspecified (7) Generalized weakness Status: Acute (8) Hypoxia Status: Acute Clinical Quality Measures DVT/VTE Risk/Contraindication: Risk Factor Score Per Nursin RFS Level Per Nursing on Admit: 4+=Very High HOLLIE ELLISON DO May 16, 2018 11:12
[2018-05-16] MEDS: methylPREDNISolone 40 MG/ML (Solu-MEDROL) VIAL IV SCH ×3 (11:56→23:10)
[2018-05-16] MEDS ORDERED: CARBAMAZEPINE 400 MG PO SCH (15:00)
[2018-05-16] MEDS ORDERED: carBAMazepine 200 MG (TEGretol) TAB PO SCH (15:00)
[2018-05-16] MEDS: lamoTRIgine 25 MG (LaMICtal) TAB PO SCH (15:09)
--- NOTE | 2018-05-16 15:56 | CONSULTATION REPORT ---
DATE OF SERVICE: 05/16/2018 The patient is admitted to ICU bed 3. PHYSICIAN REQUESTING CONSULTATION: Hollie Swenson DO PRIMARY PHYSICIAN: Micky Feng DO IMPRESSION: 1. Bilateral pneumonia. 2. 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 3. Currently on treatment with Opdivo with last treatment on 05/11/2018. 4. Significant COPD with oxygen dependence. 5. 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 6. History of fall with cervical spine fracture and wearing neck brace. 7. Longstanding history of seizure disorder and on treatment. 8. Borderline neutropenia and leukopenia, most likely secondary to a viral syndrome. PLAN: Continue to monitor CBC serially. If the neutrophil count continues to decline significantly, he may need growth factors. BRIEF HISTORY: The patient is a 62-year-old male with history of metastatic poorly differentiated adenocarcinoma of the lung to bone diagnosed in early 2017, was initially treated with chemotherapy with Carboplatin and paclitaxel regimen until 02/2018. Since then, he has been on treatment with Opdivo and has completed 2 cycles. The patient was brought to the emergency room by family with increasing shortness of breath and was found to have bilateral lung infiltrates as well as hypoxia. He is admitted to the hospital for further management. Oncology consultation was obtained for concurrent medical care. PAST MEDICAL HISTORY: Significant for metastatic poorly differentiated adenocarcinoma of the lung to bone diagnosed in early 2017 and treated as mentioned above. Most recently, he is on treatment with Opdivo. He has seizure disorder since childhood and on multiple anti-seizure medications and history of polio at young age with left-sided residual deficits. He was diagnosed with COPD more than 10 years ago and he is oxygen dependent. History of fall in 2018 with fracture of odontoid process and C2 cervical vertebra. He has been wearing a neck brace since then. PAST SURGICAL HISTORY: Include cholecystectomy, CT-guided biopsy of femur, diagnosis of metastatic poorly differentiated adenocarcinoma in early 2007. SOCIAL HISTORY: The patient is multiple times and . He lives in [place], [place] with his significant other. He has four adult children from previous marriages. He previously worked at [employer] for 29 years. He has a [id number] history of tobacco use and quit smoking approximately three years ago. He has history of alcohol use in the past, but does not drink now. No history of recreational drug use. FAMILY HISTORY: Is unremarkable with no major malignancies in the family. PHYSICAL EXAMINATION: GENERAL: Today, showed elderly male, awake and oriented and in no acute distress. VITAL SIGNS: His temperature was 98.2, pulse rate of 62, respirations 20, blood pressure 135/64 with oxygen saturation of 100% on 3 liters of oxygen by nasal cannula. HEENT: Normocephalic. Extraocular muscles intact. Conjunctivae pink. Oral mucosa moist. NECK: In brace. CHEST: Symmetrical. LUNGS: With diminished breath sounds bilaterally with a rare scattered wheeze. CARDIOVASCULAR: Regular in rate and rhythm. No murmurs or gallops are heard. ABDOMEN: Soft, nontender with no hepatosplenomegaly or other masses palpable. EXTREMITIES: Showed no edema. Post-polio changes of left upper and lower extremities with slight weakness. LABORATORY DATA: CBC done at the time of admission yesterday showed WBC 4.8, hemoglobin 11.0, and platelet count of 230,000 with neutrophil count 2.7. CBC from today morning showed WBC 2.4, ANC 1.7. Chemistry panel done today showed sodium level of 130 with rest of the electrolytes normal. BUN was 10 and creatinine 0.74 with GFR more than 60 mL per minute. Nonfasting glucose was 135. Liver function studies were normal except alkaline phosphatase level of 140. Chest x-ray done yesterday showed bilateral basilar infiltrates and/or atelectasis. No appreciable changes compared to before. Evidence of underlying COPD. Job ID: [id number] DocumentID: [id number] Dictated Date: 05/16/2018 12:38:25 Blade Changer Date: 05/16/2018 14:39:53 Dictated By: STEPHEN PRICE MD
[2018-05-16] MEDS: ACETAMINOPHEN 500 MG TAB (TYLENOL) PO PRN (21:01)
[2018-05-16] MEDS: HYDROcodone/APAP 5 MG/325 MG (LORTAB) TAB PO PRN (22:05)
[2018-05-17] MEDS: RT-ALBUTEROL/IPRATROPIUM 3 ML (DUONEB) VIAL INH SCH ×7 (01:07→23:32)
[2018-05-17] MEDS: carBAMazepine 200 MG (TEGretol) TAB PO SCH ×4 (03:06→23:13)
[2018-05-17] MEDS: lamoTRIgine 25 MG (LaMICtal) TAB PO SCH ×2 (03:07→15:18)
[2018-05-17] MEDS: lisINopril 20 MG (PRINIVIL) TABLET PO SCH (03:07)
[2018-05-17] MEDS: ATORVASTATIN 10 MG (LIPITOR) TABLET PO SCH ×2 (03:07→08:07)
[2018-05-17 04:00] VITALS: BP 111/70
[2018-05-17] MEDS: PIPERACILLIN/TAZO 4.5 GM/NS 100 ML IV SCH ×6 (05:37→20:36)
[2018-05-17] MEDS: methylPREDNISolone 40 MG/ML (Solu-MEDROL) VIAL IV SCH ×4 (05:37→23:13)
[2018-05-17 05:49] LABS: BASOPHILS % (AUTO) 0 % (0-10); EOSINOPHILS % (AUTO) 0 % (0-10); HEMATOCRIT 28 % (40-54); HEMOGLOBIN 9.1 G/DL (13.3-17.7); LYMPHOCYTES # (AUTO) 0.7 X 10^3 (1.0-4.0); LYMPHOCYTES % (AUTO) 21 % (12-44); MEAN CORPUSCULAR HEMOGLOBIN 30 PG (25-34); MEAN CORPUSCULAR HGB CONC 33 G/DL (32-36); MEAN CORPUSCULAR VOLUME 92 FL (80-99); MEAN PLATELET VOLUME 8.3 FL (7.4-10.4); MONOCYTES # (AUTO) 0.5 X 10^3 (0.0-1.0); MONOCYTES % (AUTO) 16 % (0-12); NEUTROPHILS # (AUTO) 2.1 X 10^3 (1.8-7.8); NEUTROPHILS % (AUTO) 63 % (42-75); PLATELET COUNT 229 10^3/uL (130-400); RED CELL DISTRIBUTION WIDTH 14.9 % (10.0-14.5); WHITE BLOOD COUNT 3.3 10^3/uL (4.3-11.0)
[2018-05-17] MEDS: NS IV 1000 ML 1,000 ML IV SCH ×2 (06:11→07:43)
[2018-05-17] MEDS: RT-ADVAIR HFA 115/21 MCG PER PUFF IH SCH ×2 (06:29→19:03)
--- NOTE | 2018-05-17 06:35 | Pulmonary Progress Note ---
Subjective Time Seen by a Provider: 06:35 Subjective/Events-last exam Pt feels better. No complications noted. Sepsis Event Evaluation Height, Weight, BMI Height: 6'0.00" Weight: 161lbs. 0.0oz. 73.832007tm; 21.8 BMI Method:Stated Focused Exam Lactate Level 05/15/18 16:49: Lactic Acid Level 0.66 Exam Exam Vital Signs Date Time Temp Pulse Resp B/P (MAP) Pulse Ox O2 Delivery O2 Flow Rate FiO2 05/17/18 06:30 96 Nasal Cannula 3.00 05/17/18 04:00 97.6 64 16 111/70 (84) 97 Nasal Cannula 3.00 05/17/18 02:00 93 Nasal Cannula 3.00 05/17/18 01:00 64 05/16/18 23:30 98.4 69 24 148/73 (98) 97 Nasal Cannula 3.00 05/16/18 20:00 Nasal Cannula 3.00 05/16/18 20:00 98.2 65 20 124/73 (90) 97 Nasal Cannula 3.00 05/16/18 19:00 57 05/16/18 18:58 96 Nasal Cannula 3.00 05/16/18 15:45 97.8 67 16 112/63 (79) 97 Nasal Cannula 3.00 05/16/18 14:18 94 Nasal Cannula 3.00 05/16/18 12:36 68 05/16/18 11:56 98.2 62 20 135/64 (87) 100 Nasal Cannula 3.00 05/16/18 10:08 95 Nasal Cannula 3.00 05/16/18 08:06 97.4 69 18 105/55 (72) 100 Nasal Cannula 3.00 05/16/18 08:00 100 Nasal Cannula 3.00 05/16/18 07:41 64 05/16/18 06:37 93 Nasal Cannula 3.00 I & O 05/17/18 07:00 Intake Total 2000 ml Output Total 975 ml Balance 1025 ml Height & Weight Height: 6'0.00" Weight: 161lbs. 0.0oz. 73.207236se; 21.8 BMI Method:Stated General Appearance: No Apparent Distress, WD/WN, Chronically ill, Thin HEENT: PERRL/EOMI, TMs Normal, Normal ENT Inspection, Pharynx Normal Neck: Full Range of Motion, Normal Inspection, Non Tender, Supple Respiratory: Chest Non Tender, No Accessory Muscle Use, No Respiratory Distress , Crackles, Decreased Breath Sounds, Wheezing Cardiovascular: Regular Rate, Rhythm, No Edema, No Gallop, No JVD, No Murmur, Normal Peripheral Pulses Capillary Refill: Less Than 3 Seconds Extremity: Normal Capillary Refill, Normal Inspection Neurologic/Psychiatric: Alert, Oriented x3, No Motor/Sensory Deficits, Normal Mood/Affect, duty manager II-XII Norm as Tested Skin: Normal Color, Warm/Dry Results Lab Laboratory Tests 05/15/18 12:15 05/16/18 03:30 05/17/18 05:30 Assessment/Plan Assessment/Plan bibasilar Pneumonia with hypoxia and atelectasis -Zosyn -IS left Metastatic lung cancer to left femur -undergoing chemotherapy Seizures -Last CT head is neg, carotid US shows insignificant plaques bilaterally -Seizure precautions -Home meds Hyponatremia -- Probably SIADH -Monitor RANI PACHECO DO May 17, 2018 06:35
[2018-05-17 06:39] LABS: ALANINE AMINOTRANSFERASE 12 U/L (0-55); ALBUMIN 3.3 GM/DL (3.2-4.5); ALKALINE PHOSPHATASE 130 U/L (40-136); BILIRUBIN,TOTAL 0.2 MG/DL (0.1-1.0); BUN/CREATININE RATIO 13; CALCIUM 8.2 MG/DL (8.5-10.1); CARBON DIOXIDE 24 MMOL/L (21-32); CHLORIDE 103 MMOL/L (98-107); CREATININE SERUM 0.71 MG/DL (0.60-1.30); GFR ESTIMATED > 60; GLUCOSE 147 MG/DL (70-105); POTASSIUM 4.2 MMOL/L (3.6-5.0); SODIUM 134 MMOL/L (135-145); TOTAL PROTEIN 6.1 GM/DL (6.4-8.2)
[2018-05-17 08:00] VITALS: BP 151/75
[2018-05-17] MEDS: amLODIPine 5 MG (NORVASC) TAB PO SCH (08:07)
[2018-05-17] MEDS: PHENYTOIN 100 MG (DILANTIN) CAP PO SCH ×3 (08:07→23:13)
[2018-05-17] MEDS: GABAPENTIN 600 MG (NEURONTIN) TAB PO SCH ×2 (08:08→15:18)
--- NOTE | 2018-05-17 10:46 | NUR ---
RECEIVED VERBAL ORDER FOR VTE FROM DR SCOT PINEDAX 40MG SC DAILY Addendum: 05/17/18 at 1059 by ARLETH GARRIDO RN RECEIVED VERBAL ORDER FROM DR. ELLISON TO D/C TELEMETRY AND INCREASE FLUID RESTRICTION TO 1800ML
--- NOTE | 2018-05-17 11:40 | Progress Note-Standard ---
Standard Progress Note Progress Notes/Assess & Plan Date Seen by a Provider: May 17, 2018 Time Seen by a Provider: 11:35 Progress/Assessment & Plan 62-year-old male with metastatic non-small cell lung cancer to bone diagnosed in early 2017 and on chemotherapy with carboplatinum and paclitaxel regimen until early February 2018. Chemotherapy stopped because of recurrent infections and hospitalizations. Currently on treatment with Opdivo and tolerating this well. Patient admitted with upper respiratory infection, probable pneumonia, exacerbation of COPD. Also noted to have hyponatremia which is improving with the free water restriction and dermal saline IV. Sodium level was 134 today and the IV normal saline has been discontinued. Water restriction being relaxed gradually. He still has cough productive of scanty sputum but denied any hemoptysis. No fevers or shaking chills. No diarrhea, constipation, hematochezia or melena. Appetite is fair. Laboratory Tests 05/17/18 05:30 ANC 2.7. Patient is clinically better. Continue on broad-spectrum antibiotic therapy for now. Hyponatremia is most likely secondary to SIADH and is improving. Leukopenia and neutropenia most likely due to the infection and this is also improving. Continue to monitor serially. Will follow patient with you. Recheck labs in a.m. Focused Exam Lactate Level 05/15/18 16:49: Lactic Acid Level 0.66 STEPHEN PRICE May 17, 2018 11:40
--- NOTE | 2018-05-17 11:54 | Progress Note-Hospitalist ---
Subjective HPI/CC On Admission Date Seen by Provider: May 17, 2018 Time Seen by Provider: 10:30 CC: Pneumonia HPI: This is a 62yoWM known to be from prior and frequent hospitalizations who presents to the ER with dyspnea and fever and found to have pneumonia. Pt has h/ o lung cancer and seizures and warranted placement in the cardiac step down unit due to high risk for decompensation. Dr Hoffman has seen him in consultation and updated me that he is not on chemotherapy so any neutropenia is due to the acute illness and not immunosuppressives. Currently patient is much improved and all home meds will be restarted to his exact spec and frequencies. Subjective/Events-last exam Patient doing better Fluid restriction is really bothering him and sodium level making progress at 134 so will change from 1500 to 1800 BM will not occur until he goes home HLIVF Lovenox will be initiated Tely DC Eating well Nebs and O2 tolerated Review of Systems General: Fatigue Pulmonary: Dyspnea, Cough Gastrointestinal: Constipation Focused Exam Lactate Level 05/15/18 16:49: Lactic Acid Level 0.66 Objective Exam Vital Signs Vital Signs Date Time Temp Pulse Resp B/P (MAP) Pulse Ox O2 Delivery O2 Flow Rate FiO2 05/17/18 10:28 95 Nasal Cannula 3.00 05/17/18 08:00 98.4 62 20 151/75 (100) Capillary Refill : Less Than 3 Seconds General Appearance: No Apparent Distress, WD/WN, Chronically ill, Thin HEENT: PERRL/EOMI, TMs Normal, Normal ENT Inspection, Pharynx Normal Neck: Full Range of Motion, Normal Inspection, Non Tender, Supple Respiratory: Chest Non Tender, No Accessory Muscle Use, No Respiratory Distress , Crackles, Decreased Breath Sounds, Wheezing Cardiovascular: Regular Rate, Rhythm, No Edema, No Gallop, No JVD, No Murmur, Normal Peripheral Pulses Gastrointestinal: Normal Bowel Sounds, Non Tender, Soft Extremity: Normal Capillary Refill, Normal Inspection Neurologic/Psychiatric: Alert, Oriented x3, No Motor/Sensory Deficits, Normal Mood/Affect, can runner II-XII Norm as Tested Skin: Normal Color, Warm/Dry Results/Procedures Lab Laboratory Tests 05/17/18 05:30 Patient resulted labs reviewed. Assessment/Plan Assessment and Plan Assess & Plan/Chief Complaint Bilateral Pneumonia Hypoxia Metastatic lung cancer Seizures Hyponatremia improved Plan: Home meds Abx O2 Nebs Fluid restriction at 1800cc day Lovenox DC Tely Diagnosis/Problems Diagnosis/Problems (1) RLL pneumonia Status: Acute Qualifiers: Pneumonia type: due to unspecified organism Qualified Codes: J18.1 - Lobar pneumonia, unspecified organism (2) Acute hyponatremia Status: Acute (3) Hx of seizure disorder Status: Acute (4) Lung cancer metastatic to bone Status: Chronic (5) Neutropenia Status: Acute Qualifiers: Neutropenia type: due to infection Qualified Codes: D70.3 - Neutropenia due to infection (6) Nausea & vomiting Status: Acute Qualifiers: Vomiting type: unspecified Vomiting Intractability: unspecified Qualified Codes: R11.2 - Nausea with vomiting, unspecified (7) Generalized weakness Status: Acute (8) Hypoxia Status: Acute Clinical Quality Measures DVT/VTE Risk/Contraindication: Risk Factor Score Per Nursin RFS Level Per Nursing on Admit: 4+=Very High JAMIR ELLISON DO May 17, 2018 11:54
[2018-05-17 12:00] VITALS: BP 120/73
[2018-05-17] MEDS: GABAPENTIN 300 MG (NEURONTIN) CAP PO SCH (13:44)
[2018-05-17] MEDS: ENOXAPARIN 40 MG/0.4 ML (LOVENOX) SYR SC SCH (15:18)
[2018-05-17 16:00] VITALS: BP 161/83
[2018-05-17] MEDS: HYDROcodone/APAP 5 MG/325 MG (LORTAB) TAB PO PRN (16:09)
[2018-05-17 19:50] VITALS: BP 112/66
[2018-05-17 22:00] VITALS: BP 135/78
[2018-05-18] VITALS: BP 135/78
[2018-05-18] MEDS: RT-ALBUTEROL/IPRATROPIUM 3 ML (DUONEB) VIAL INH SCH ×5 (02:15→20:38)
[2018-05-18] MEDS: carBAMazepine 200 MG (TEGretol) TAB PO SCH ×4 (03:04→23:10)
[2018-05-18] MEDS: lamoTRIgine 25 MG (LaMICtal) TAB PO SCH ×2 (03:04→15:32)
[2018-05-18] MEDS: lisINopril 20 MG (PRINIVIL) TABLET PO SCH (03:04)
[2018-05-18] MEDS: methylPREDNISolone 40 MG/ML (Solu-MEDROL) VIAL IV SCH ×4 (05:35→23:10)
[2018-05-18] MEDS: PIPERACILLIN/TAZO 4.5 GM/NS 100 ML IV SCH ×6 (05:35→21:40)
[2018-05-18 05:43] LABS: BASOPHILS % (AUTO) 1 % (0-10); EOSINOPHILS % (AUTO) 0 % (0-10); HEMATOCRIT 29 % (40-54); HEMOGLOBIN 9.2 G/DL (13.3-17.7); LYMPHOCYTES # (AUTO) 1.1 X 10^3 (1.0-4.0); LYMPHOCYTES % (AUTO) 20 % (12-44); MEAN CORPUSCULAR HEMOGLOBIN 30 PG (25-34); MEAN CORPUSCULAR HGB CONC 32 G/DL (32-36); MEAN CORPUSCULAR VOLUME 93 FL (80-99); MEAN PLATELET VOLUME 8.4 FL (7.4-10.4); MONOCYTES # (AUTO) 0.7 X 10^3 (0.0-1.0); MONOCYTES % (AUTO) 13 % (0-12); NEUTROPHILS # (AUTO) 3.5 X 10^3 (1.8-7.8); NEUTROPHILS % (AUTO) 66 % (42-75); PLATELET COUNT 229 10^3/uL (130-400); WHITE BLOOD COUNT 5.2 10^3/uL (4.3-11.0)
[2018-05-18 06:09] LABS: ALANINE AMINOTRANSFERASE 15 U/L (0-55); ALBUMIN 3.4 GM/DL (3.2-4.5); ALKALINE PHOSPHATASE 129 U/L (40-136); BILIRUBIN,TOTAL 0.2 MG/DL (0.1-1.0); BUN/CREATININE RATIO 12; CALCIUM 8.3 MG/DL (8.5-10.1); CARBON DIOXIDE 28 MMOL/L (21-32); CHLORIDE 101 MMOL/L (98-107); CREATININE SERUM 0.77 MG/DL (0.60-1.30); GFR ESTIMATED > 60; GLUCOSE 149 MG/DL (70-105); POTASSIUM 3.9 MMOL/L (3.6-5.0); SODIUM 136 MMOL/L (135-145); TOTAL PROTEIN 6.1 GM/DL (6.4-8.2)
[2018-05-18] MEDS: RT-ADVAIR HFA 115/21 MCG PER PUFF IH SCH ×2 (06:34→20:38)
[2018-05-18 08:00] VITALS: BP 135/71
[2018-05-18] MEDS: UMECLIDINIUM BROMIDE (INCRUSE ELLIPTA) 7'S IH SCH (08:00)
--- NOTE | 2018-05-18 08:20 | Progress Note (SOAP) ---
Subjective Time Seen by a Provider: 08:17 Subjective/Events-last exam Patient feeling better today. Nausea . Weakness better. Patient has lung cancer and received chemotherapy every 2 weeks. Y basilar pneumonia. Metastatic adenocarcinoma of lung. Seizure disorders. Focused Exam Lactate Level 05/15/18 16:49: Lactic Acid Level 0.66 Objective Exam Vital Signs Date Time Temp Pulse Resp B/P (MAP) Pulse Ox O2 Delivery O2 Flow Rate FiO2 05/18/18 06:34 98 Nasal Cannula 3.00 05/18/18 02:16 98 Nasal Cannula 3.00 05/18/18 00:00 98.2 66 18 135/78 (97) 95 Nasal Cannula 3.00 05/17/18 20:10 Nasal Cannula 3.00 05/17/18 19:50 98.4 68 20 112/66 (81) 95 Nasal Cannula 3.00 05/17/18 19:05 94 Nasal Cannula 3.00 05/17/18 16:00 97.4 69 20 161/83 (109) 97 Nasal Cannula 3.00 05/17/18 14:49 96 Nasal Cannula 3.00 05/17/18 12:00 98.2 58 20 120/73 (89) 98 Nasal Cannula 3.00 05/17/18 10:28 95 Nasal Cannula 3.00 I & O 05/18/18 07:00 Intake Total 2820 ml Balance 2820 ml Capillary Refill : Less Than 3 Seconds General Appearance: No Apparent Distress, Thin HEENT: Normal ENT Inspection Neck: Other (Cervical fractures) Respiratory: No Accessory Muscle Use, No Respiratory Distress, Decreased Breath Sounds Cardiovascular: Regular Rate, Rhythm, No Murmur Gastrointestinal: non tender, soft Results Lab Laboratory Tests 05/18/18 05:37 Laboratory Tests 05/18/18 05:37: White Blood Count 5.2, Red Blood Count 3.08L, Hemoglobin 9.2L, Hematocrit 29L, Mean Corpuscular Volume 93, Mean Corpuscular Hemoglobin 30, Mean Corpuscular Hemoglobin Concent 32, Red Cell Distribution Width 15.0H, Platelet Count 229, Mean Platelet Volume 8.4, Neutrophils (%) (Auto) 66, Lymphocytes (%) (Auto) 20, Monocytes (%) (Auto) 13H, Eosinophils (%) (Auto) 0, Basophils (%) (Auto) 1, Neutrophils # (Auto) 3.5, Lymphocytes # (Auto) 1.1, Monocytes # (Auto) 0.7, Eosinophils # (Auto) 0.0, Basophils # (Auto) 0.0, Sodium Level 136, Potassium Level 3.9, Chloride Level 101, Carbon Dioxide Level 28, Anion Gap 7, Blood Urea Nitrogen 9, Creatinine 0.77, Estimat Glomerular Filtration Rate > 60, BUN/ Creatinine Ratio 12, Glucose Level 149H, Calcium Level 8.3L, Corrected Calcium 8.8, Magnesium Level 2.0, Total Bilirubin 0.2, Aspartate Amino Transf (AST/SGOT ) 26, Alanine Aminotransferase (ALT/SGPT) 15, Alkaline Phosphatase 129, Total Protein 6.1L, Albumin 3.4 Microbiology 05/15/18 Blood Culture - Preliminary, Resulted No growth Assessment/Plan Assessment/Plan Assess & Plan/Chief Complaint Nauseousness. Weakness. Patient's lungs pneumonia. Metastatic lung cancer to bone. Chemotherapy every other week. Patient's liver pneumonia. Seizures. Cervical fractures. Patient doing better Clinical Quality Measures DVT/VTE Risk/Contraindication: Risk Factor Score Per Nursin RFS Level Per Nursing on Admit: 4+=Very High AMANDEEP GENAO DO May 18, 2018 08:20
[2018-05-18] MEDS: PHENYTOIN 100 MG (DILANTIN) CAP PO SCH ×3 (09:00→23:10)
[2018-05-18] MEDS: amLODIPine 5 MG (NORVASC) TAB PO SCH (09:00)
[2018-05-18] MEDS: ATORVASTATIN 10 MG (LIPITOR) TABLET PO SCH (09:00)
[2018-05-18] MEDS: GABAPENTIN 600 MG (NEURONTIN) TAB PO SCH ×2 (09:00→15:32)
--- NOTE | 2018-05-18 10:46 | Pulmonary Progress Note ---
Subjective Time Seen by a Provider: 10:46 Sepsis Event Evaluation Height, Weight, BMI Height: 6'0.00" Weight: 161lbs. 0.0oz. 73.842873es; 21.8 BMI Method:Stated Focused Exam Lactate Level 05/15/18 16:49: Lactic Acid Level 0.66 Exam Exam Vital Signs Date Time Temp Pulse Resp B/P (MAP) Pulse Ox O2 Delivery O2 Flow Rate FiO2 05/18/18 10:13 98 Nasal Cannula 3.00 05/18/18 06:34 98 Nasal Cannula 3.00 05/18/18 02:16 98 Nasal Cannula 3.00 05/18/18 00:00 98.2 66 18 135/78 (97) 95 Nasal Cannula 3.00 05/17/18 20:10 Nasal Cannula 3.00 05/17/18 19:50 98.4 68 20 112/66 (81) 95 Nasal Cannula 3.00 05/17/18 19:05 94 Nasal Cannula 3.00 05/17/18 16:00 97.4 69 20 161/83 (109) 97 Nasal Cannula 3.00 05/17/18 14:49 96 Nasal Cannula 3.00 05/17/18 12:00 98.2 58 20 120/73 (89) 98 Nasal Cannula 3.00 I & O 05/18/18 06:59 Intake Total 2820 ml Balance 2820 ml Height & Weight Height: 6'0.00" Weight: 161lbs. 0.0oz. 73.892507zy; 21.8 BMI Method:Stated General Appearance: No Apparent Distress, Thin HEENT: Normal ENT Inspection Neck: Other (Cervical fractures) Respiratory: No Accessory Muscle Use, No Respiratory Distress, Decreased Breath Sounds Cardiovascular: Regular Rate, Rhythm, No Murmur Capillary Refill: Less Than 3 Seconds Gastrointestinal: non tender, soft Extremity: Normal Capillary Refill, Normal Inspection Neurologic/Psychiatric: Alert, Oriented x3, No Motor/Sensory Deficits, Normal Mood/Affect, engineering design manager II-XII Norm as Tested Skin: Normal Color, Warm/Dry Results Lab Laboratory Tests 05/17/18 05:30 05/18/18 05:37 Assessment/Plan Assessment/Plan bibasilar Pneumonia with hypoxia and atelectasis -Zosyn -IS left Metastatic lung cancer to left femur -undergoing chemotherapy Seizures -Last CT head is neg, carotid US shows insignificant plaques bilaterally -Seizure precautions -Home meds Hyponatremia -- Probably SIADH -Monitor RANI PACHECO DO May 18, 2018 10:46
[2018-05-18] MEDS: GABAPENTIN 300 MG (NEURONTIN) CAP PO SCH (12:02)
--- NOTE | 2018-05-18 14:11 | NUR ---
Pastoral Care Visit.
[2018-05-18] MEDS: ENOXAPARIN 40 MG/0.4 ML (LOVENOX) SYR SC SCH (15:32)
[2018-05-18 16:26] VITALS: BP 143/81
[2018-05-19] VITALS: BP 126/67
[2018-05-19] MEDS: lisINopril 20 MG (PRINIVIL) TABLET PO SCH (03:06)
[2018-05-19] MEDS: lamoTRIgine 25 MG (LaMICtal) TAB PO SCH (03:06)
[2018-05-19] MEDS: carBAMazepine 200 MG (TEGretol) TAB PO SCH ×2 (03:06→08:36)
[2018-05-19] MEDS: methylPREDNISolone 40 MG/ML (Solu-MEDROL) VIAL IV SCH ×2 (05:46→11:36)
[2018-05-19] MEDS: PIPERACILLIN/TAZO 4.5 GM/NS 100 ML IV SCH ×4 (05:46→11:41)
[2018-05-19 06:05] LABS: BASOPHILS % (AUTO) 0 % (0-10); EOSINOPHILS % (AUTO) 0 % (0-10); HEMATOCRIT 28 % (40-54); LYMPHOCYTES % (AUTO) 34 % (12-44); MEAN CORPUSCULAR HEMOGLOBIN 30 PG (25-34); MEAN CORPUSCULAR HGB CONC 32 G/DL (32-36); MEAN CORPUSCULAR VOLUME 93 FL (80-99); MEAN PLATELET VOLUME 8.3 FL (7.4-10.4); MONOCYTES # (AUTO) 0.6 X 10^3 (0.0-1.0); MONOCYTES % (AUTO) 18 % (0-12); NEUTROPHILS # (AUTO) 1.5 X 10^3 (1.8-7.8); NEUTROPHILS % (AUTO) 48 % (42-75); PLATELET COUNT 240 10^3/uL (130-400); RED CELL DISTRIBUTION WIDTH 15.4 % (10.0-14.5); WHITE BLOOD COUNT 3.1 10^3/uL (4.3-11.0)
[2018-05-19 06:25] LABS: BUN/CREATININE RATIO 14; CALCIUM 8.5 MG/DL (8.5-10.1); CARBON DIOXIDE 29 MMOL/L (21-32); CHLORIDE 100 MMOL/L (98-107); CREATININE SERUM 0.74 MG/DL (0.60-1.30); GFR ESTIMATED > 60; GLUCOSE 194 MG/DL (70-105); POTASSIUM 4.1 MMOL/L (3.6-5.0); SODIUM 137 MMOL/L (135-145)
[2018-05-19] MEDS: RT-ALBUTEROL/IPRATROPIUM 3 ML (DUONEB) VIAL INH SCH (07:11)
[2018-05-19] MEDS: UMECLIDINIUM BROMIDE (INCRUSE ELLIPTA) 7'S IH SCH (07:13)
[2018-05-19] MEDS: RT-ADVAIR HFA 115/21 MCG PER PUFF IH SCH (07:13)
--- NOTE | 2018-05-19 07:25 | Pulmonary Progress Note ---
Sepsis Event Evaluation Height, Weight, BMI Height: 6'0.00" Weight: 161lbs. 0.0oz. 73.337177bx; 21.8 BMI Method:Stated Exam Exam Vital Signs Date Time Temp Pulse Resp B/P (MAP) Pulse Ox O2 Delivery O2 Flow Rate FiO2 05/19/18 07:14 97 Nasal Cannula 3.00 05/19/18 00:00 98.5 64 18 126/67 (86) 98 Nasal Cannula 3.00 3.00 05/18/18 20:44 Nasal Cannula 3.00 05/18/18 20:39 95 Nasal Cannula 3.00 05/18/18 20:00 Nasal Cannula 3.00 05/18/18 16:26 97.0 58 18 143/81 (101) 97 Nasal Cannula 3.00 05/18/18 15:01 72 96 05/18/18 13:48 95 Nasal Cannula 3.00 05/18/18 10:13 98 Nasal Cannula 3.00 05/18/18 08:00 Nasal Cannula 3.00 05/18/18 08:00 98.2 64 20 135/71 (92) 96 Nasal Cannula 3.00 I & O 05/19/18 07:00 Intake Total 2040 ml Balance 2040 ml Height & Weight Height: 6'0.00" Weight: 161lbs. 0.0oz. 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
--- NOTE | 2018-05-19 07:57 | Progress Note (SOAP) ---
Subjective Time Seen by a Provider: 07:52 Subjective/Events-last exam Patient doing better today. Patient breathing better. Neutropenia. Pneumonia. Hyponatremia. Seizures. Cervical fractures. COPD. Metastatic lung cancer metastasis to bone Objective Exam Vital Signs Date Time Temp Pulse Resp B/P (MAP) Pulse Ox O2 Delivery O2 Flow Rate FiO2 05/19/18 07:14 97 Nasal Cannula 3.00 05/19/18 00:00 98.5 64 18 126/67 (86) 98 Nasal Cannula 3.00 3.00 05/18/18 20:44 Nasal Cannula 3.00 05/18/18 20:39 95 Nasal Cannula 3.00 05/18/18 20:00 Nasal Cannula 3.00 05/18/18 16:26 97.0 58 18 143/81 (101) 97 Nasal Cannula 3.00 05/18/18 15:01 72 96 05/18/18 13:48 95 Nasal Cannula 3.00 05/18/18 10:13 98 Nasal Cannula 3.00 05/18/18 08:00 Nasal Cannula 3.00 05/18/18 08:00 98.2 64 20 135/71 (92) 96 Nasal Cannula 3.00 I & O 05/19/18 06:59 Intake Total 2040 ml Balance 2040 ml Capillary Refill : Less Than 3 SecondsLess Than 3 Seconds General Appearance: No Apparent Distress, Thin HEENT: Normal ENT Inspection Neck: Other (Plastic collar, cervical fracture) Respiratory: Decreased Breath Sounds Cardiovascular: Regular Rate, Rhythm, Other (Murmur) Gastrointestinal: non tender, soft Results Lab Laboratory Tests 05/19/18 05:51 Laboratory Tests 05/19/18 05:51: White Blood Count 3.1L, Red Blood Count 3.03L, Hemoglobin 9.0L, Hematocrit 28L, Mean Corpuscular Volume 93, Mean Corpuscular Hemoglobin 30, Mean Corpuscular Hemoglobin Concent 32, Red Cell Distribution Width 15.4H, Platelet Count 240, Mean Platelet Volume 8.3, Neutrophils (%) (Auto) 48, Lymphocytes (%) (Auto) 34, Monocytes (%) (Auto) 18H, Eosinophils (%) (Auto) 0, Basophils (%) (Auto) 0, Neutrophils # (Auto) 1.5L, Lymphocytes # (Auto) 1.0, Monocytes # (Auto) 0.6, Eosinophils # (Auto) 0.0, Basophils # (Auto) 0.0, Sodium Level 137, Potassium Level 4.1, Chloride Level 100, Carbon Dioxide Level 29, Anion Gap 8, Blood Urea Nitrogen 10, Creatinine 0.74, Estimat Glomerular Filtration Rate > 60, BUN/ Creatinine Ratio 14, Glucose Level 194H, Calcium Level 8.5 Microbiology 05/15/18 Blood Culture - Preliminary, Resulted No growth Assessment/Plan Assessment/Plan Assess & Plan/Chief Complaint Nauseousness. Weakness. Patient's lungs pneumonia. Metastatic lung cancer to bone. Chemotherapy every other week. Patient's liver pneumonia. Seizures. Cervical fractures. Patient doing better. . 05/19/18. Patient doing better today. Nauseousness. Weakness. By basilic pneumonia. Metastatic lung cancer. Chemotherapy every other week. Seizures. Cervical fractures. Patient Improving Clinical Quality Measures DVT/VTE Risk/Contraindication: Risk Factor Score Per Nursin RFS Level Per Nursing on Admit: 4+=Very High AMANDEEP GENAO DO May 19, 2018 07:57
[2018-05-19 08:00] VITALS: BP 127/63
[2018-05-19] MEDS: ATORVASTATIN 10 MG (LIPITOR) TABLET PO SCH (08:35)
[2018-05-19] MEDS: PHENYTOIN 100 MG (DILANTIN) CAP PO SCH (08:36)
[2018-05-19] MEDS: GABAPENTIN 600 MG (NEURONTIN) TAB PO SCH (08:36)
[2018-05-19] MEDS: amLODIPine 5 MG (NORVASC) TAB PO SCH (08:36)
[2018-05-19] MEDS: GABAPENTIN 300 MG (NEURONTIN) CAP PO SCH (11:36)
[2018-05-19 14:14] VITALS: BP 127/63
--- NOTE | 2018-05-20 07:45 | Discharge Summary ---
Diagnosis/Chief Complaint Date of Admission May 15, 2018 at 13:27 Date of Discharge May 19, 2018 at 14:15 Discharge Date: May 19, 2018 Discharge Time: 07:42 Discharge Diagnosis Nausea and vomiting. basilar pneumonia. Seizures. Lung cancer. Metastatic to bone. Hyponatremia. Cervical fractures. Neutropenia. Hyperlipidemia. Dependence on supplemental oxygen Discharge Summary Consultations Pulmonology. Oncology Discharge Physical Examination Allergies: Coded Allergies: aspirin (Unverified Allergy, Mild, DOES NOT WORK WELL W/ OTHER MEDS, 03/09) ibuprofen (Unverified Allergy, Mild, 03/09/18) Vitals & I&Os Vital Signs Date Time Temp Pulse Resp B/P (MAP) Pulse Ox O2 Delivery O2 Flow Rate FiO2 05/19/18 14:14 66 20 127/63 96 Nasal Cannula 3.00 05/19/18 08:00 97.9 Hospital Course Patient in hospital did improve. Patient sent home on Omnicef. Patient breathing better. Patient eating Labs (last 24 hrs) Laboratory Tests 05/15/18 12:15: White Blood Count 4.2L, Red Blood Count 3.72L, Hemoglobin 11.0L, Hematocrit 33L , Mean Corpuscular Volume 89, Mean Corpuscular Hemoglobin 30, Mean Corpuscular Hemoglobin Concent 33, Red Cell Distribution Width 14.5, Platelet Count 230, Mean Platelet Volume 8.1, Neutrophils (%) (Auto) 65, Lymphocytes (%) (Auto) 18, Monocytes (%) (Auto) 17H, Eosinophils (%) (Auto) 0, Basophils (%) (Auto) 1, Neutrophils # (Auto) 2.7, Lymphocytes # (Auto) 0.7L, Monocytes # (Auto) 0.7, Eosinophils # (Auto) 0.0, Basophils # (Auto) 0.0, Sodium Level 126L, Potassium Level 4.6, Chloride Level 91L, Carbon Dioxide Level 25, Anion Gap 10, Blood Urea Nitrogen 14, Creatinine 0.77, Estimat Glomerular Filtration Rate > 60, BUN/ Creatinine Ratio 18, Glucose Level 116H, Calcium Level 8.8, Corrected Calcium 8.9, Total Bilirubin 0.3, Aspartate Amino Transf (AST/SGOT) 32, Alanine Aminotransferase (ALT/SGPT) 13, Alkaline Phosphatase 188H, Total Protein 7.6, Albumin 3.9, Lipase < 4L 05/15/18 12:26: Blood Gas Puncture Site R BRACHIAL, Blood Gas Patient Temperature 97.0, Arterial Blood pH 7.42, Arterial Blood Partial Pressure CO2 42, Arterial Blood Partial Pressure O2 84, Arterial Blood HCO3 27, Arterial Blood Total CO2 27.9, Arterial Blood Oxygen Saturation 97, Arterial Blood Base Excess 2.2, Johan Test YES-POS, Blood Gas Ventilator Setting NO, Blood Gas Inspired Oxygen 3 05/15/18 16:49: Lactic Acid Level 0.66 05/16/18 03:30: White Blood Count 2.4L, Red Blood Count 3.12L, Hemoglobin 9.3L, Hematocrit 28L, Mean Corpuscular Volume 90, Mean Corpuscular Hemoglobin 30, Mean Corpuscular Hemoglobin Concent 33, Red Cell Distribution Width 14.6H, Platelet Count 201, Mean Platelet Volume 8.2, Neutrophils (%) (Auto) 70, Lymphocytes (%) (Auto) 19, Monocytes (%) (Auto) 12, Eosinophils (%) (Auto) 0, Basophils (%) (Auto) 0, Neutrophils # (Auto) 1.7L, Lymphocytes # (Auto) 0.5L, Monocytes # (Auto) 0.3, Eosinophils # (Auto) 0.0, Basophils # (Auto) 0.0, Sodium Level 130L, Potassium Level 4.3, Chloride Level 98, Carbon Dioxide Level 24, Anion Gap 8, Blood Urea Nitrogen 10, Creatinine 0.74, Estimat Glomerular Filtration Rate > 60, BUN/ Creatinine Ratio 14, Glucose Level 135H, Calcium Level 8.1L, Corrected Calcium 8.6, Total Bilirubin 0.2, Aspartate Amino Transf (AST/SGOT) 27, Alanine Aminotransferase (ALT/SGPT) 13, Alkaline Phosphatase 140H, Total Protein 6.3L, Albumin 3.4 05/17/18 05:30: White Blood Count 3.3L, Red Blood Count 3.00L, Hemoglobin 9.1L, Hematocrit 28L, Mean Corpuscular Volume 92, Mean Corpuscular Hemoglobin 30, Mean Corpuscular Hemoglobin Concent 33, Red Cell Distribution Width 14.9H, Platelet Count 229, Mean Platelet Volume 8.3, Neutrophils (%) (Auto) 63, Lymphocytes (%) (Auto) 21, Monocytes (%) (Auto) 16H, Eosinophils (%) (Auto) 0, Basophils (%) (Auto) 0, Neutrophils # (Auto) 2.1, Lymphocytes # (Auto) 0.7L, Monocytes # (Auto) 0.5, Eosinophils # (Auto) 0.0, Basophils # (Auto) 0.0, Sodium Level 134L, Potassium Level 4.2, Chloride Level 103, Carbon Dioxide Level 24, Anion Gap 7, Blood Urea Nitrogen 9, Creatinine 0.71, Estimat Glomerular Filtration Rate > 60, BUN/ Creatinine Ratio 13, Glucose Level 147H, Calcium Level 8.2L, Corrected Calcium 8.8, Total Bilirubin 0.2, Aspartate Amino Transf (AST/SGOT) 31, Alanine Aminotransferase (ALT/SGPT) 12, Alkaline Phosphatase 130, Total Protein 6.1L, Albumin 3.3 05/18/18 05:37: White Blood Count 5.2, Red Blood Count 3.08L, Hemoglobin 9.2L, Hematocrit 29L, Mean Corpuscular Volume 93, Mean Corpuscular Hemoglobin 30, Mean Corpuscular Hemoglobin Concent 32, Red Cell Distribution Width 15.0H, Platelet Count 229, Mean Platelet Volume 8.4, Neutrophils (%) (Auto) 66, Lymphocytes (%) (Auto) 20, Monocytes (%) (Auto) 13H, Eosinophils (%) (Auto) 0, Basophils (%) (Auto) 1, Neutrophils # (Auto) 3.5, Lymphocytes # (Auto) 1.1, Monocytes # (Auto) 0.7, Eosinophils # (Auto) 0.0, Basophils # (Auto) 0.0, Sodium Level 136, Potassium Level 3.9, Chloride Level 101, Carbon Dioxide Level 28, Anion Gap 7, Blood Urea Nitrogen 9, Creatinine 0.77, Estimat Glomerular Filtration Rate > 60, BUN/ Creatinine Ratio 12, Glucose Level 149H, Calcium Level 8.3L, Corrected Calcium 8.8, Total Bilirubin 0.2, Aspartate Amino Transf (AST/SGOT) 26, Alanine Aminotransferase (ALT/SGPT) 15, Alkaline Phosphatase 129, Total Protein 6.1L, Albumin 3.4, Magnesium Level 2.0 05/19/18 05:51: White Blood Count 3.1L, Red Blood Count 3.03L, Hemoglobin 9.0L, Hematocrit 28L, Mean Corpuscular Volume 93, Mean Corpuscular Hemoglobin 30, Mean Corpuscular Hemoglobin Concent 32, Red Cell Distribution Width 15.4H, Platelet Count 240, Mean Platelet Volume 8.3, Neutrophils (%) (Auto) 48, Lymphocytes (%) (Auto) 34, Monocytes (%) (Auto) 18H, Eosinophils (%) (Auto) 0, Basophils (%) (Auto) 0, Neutrophils # (Auto) 1.5L, Lymphocytes # (Auto) 1.0, Monocytes # (Auto) 0.6, Eosinophils # (Auto) 0.0, Basophils # (Auto) 0.0, Sodium Level 137, Potassium Level 4.1, Chloride Level 100, Carbon Dioxide Level 29, Anion Gap 8, Blood Urea Nitrogen 10, Creatinine 0.74, Estimat Glomerular Filtration Rate > 60, BUN/ Creatinine Ratio 14, Glucose Level 194H, Calcium Level 8.5 Microbiology 05/15/18 Blood Culture - Preliminary, Resulted No growth Laboratory Tests 05/15/18 12:15 05/16/18 03:30 05/17/18 05:30 05/18/18 05:37 05/19/18 05:51 Pending Labs Microbiology Date/Time Source Procedure Growth Status 05/15/18 17:02 Peripheral Rt Ac Blood Culture - Preliminary No growth Resulted 05/15/18 16:49 Peripheral Rt Ac Blood Culture - Preliminary No growth Resulted Laboratory Tests 05/15/18 12:15: White Blood Count 4.2, Red Blood Count 3.72, Hemoglobin 11.0, Hematocrit 33, Mean Corpuscular Volume 89, Mean Corpuscular Hemoglobin 30, Mean Corpuscular Hemoglobin Concent 33, Red Cell Distribution Width 14.5, Platelet Count 230, Mean Platelet Volume 8.1, Neutrophils (%) (Auto) 65, Lymphocytes (%) (Auto) 18, Monocytes (%) (Auto) 17, Eosinophils (%) (Auto) 0, Basophils (%) (Auto) 1, Neutrophils # (Auto) 2.7, Lymphocytes # (Auto) 0.7, Monocytes # (Auto) 0.7, Eosinophils # (Auto) 0.0, Basophils # (Auto) 0.0, Sodium Level 126, Potassium Level 4.6, Chloride Level 91, Carbon Dioxide Level 25, Anion Gap 10, Blood Urea Nitrogen 14, Creatinine 0.77, Estimat Glomerular Filtration Rate > 60, BUN/ Creatinine Ratio 18, Glucose Level 116, Calcium Level 8.8, Corrected Calcium 8.9 , Total Bilirubin 0.3, Aspartate Amino Transf (AST/SGOT) 32, Alanine Aminotransferase (ALT/SGPT) 13, Alkaline Phosphatase 188, Total Protein 7.6, Albumin 3.9, Lipase < 4 05/15/18 12:26: Blood Gas Puncture Site R BRACHIAL, Blood Gas Patient Temperature 97.0, Arterial Blood pH 7.42, Arterial Blood Partial Pressure CO2 42, Arterial Blood Partial Pressure O2 84, Arterial Blood HCO3 27, Arterial Blood Total CO2 27.9, Arterial Blood Oxygen Saturation 97, Arterial Blood Base Excess 2.2, Johan Test YES-POS, Blood Gas Ventilator Setting NO, Blood Gas Inspired Oxygen 3 05/15/18 16:49: Lactic Acid Level 0.66 05/16/18 03:30: White Blood Count 2.4, Red Blood Count 3.12, Hemoglobin 9.3, Hematocrit 28, Mean Corpuscular Volume 90, Mean Corpuscular Hemoglobin 30, Mean Corpuscular Hemoglobin Concent 33, Red Cell Distribution Width 14.6, Platelet Count 201, Mean Platelet Volume 8.2, Neutrophils (%) (Auto) 70, Lymphocytes (%) (Auto) 19, Monocytes (%) (Auto) 12, Eosinophils (%) (Auto) 0, Basophils (%) (Auto) 0, Neutrophils # (Auto) 1.7, Lymphocytes # (Auto) 0.5, Monocytes # (Auto) 0.3, Eosinophils # (Auto) 0.0, Basophils # (Auto) 0.0, Sodium Level 130, Potassium Level 4.3, Chloride Level 98, Carbon Dioxide Level 24, Anion Gap 8, Blood Urea Nitrogen 10, Creatinine 0.74, Estimat Glomerular Filtration Rate > 60, BUN/ Creatinine Ratio 14, Glucose Level 135, Calcium Level 8.1, Corrected Calcium 8.6 , Total Bilirubin 0.2, Aspartate Amino Transf (AST/SGOT) 27, Alanine Aminotransferase (ALT/SGPT) 13, Alkaline Phosphatase 140, Total Protein 6.3, Albumin 3.4 05/17/18 05:30: White Blood Count 3.3, Red Blood Count 3.00, Hemoglobin 9.1, Hematocrit 28, Mean Corpuscular Volume 92, Mean Corpuscular Hemoglobin 30, Mean Corpuscular Hemoglobin Concent 33, Red Cell Distribution Width 14.9, Platelet Count 229, Mean Platelet Volume 8.3, Neutrophils (%) (Auto) 63, Lymphocytes (%) (Auto) 21, Monocytes (%) (Auto) 16, Eosinophils (%) (Auto) 0, Basophils (%) (Auto) 0, Neutrophils # (Auto) 2.1, Lymphocytes # (Auto) 0.7, Monocytes # (Auto) 0.5, Eosinophils # (Auto) 0.0, Basophils # (Auto) 0.0, Sodium Level 134, Potassium Level 4.2, Chloride Level 103, Carbon Dioxide Level 24, Anion Gap 7, Blood Urea Nitrogen 9, Creatinine 0.71, Estimat Glomerular Filtration Rate > 60, BUN/ Creatinine Ratio 13, Glucose Level 147, Calcium Level 8.2, Corrected Calcium 8.8 , Total Bilirubin 0.2, Aspartate Amino Transf (AST/SGOT) 31, Alanine Aminotransferase (ALT/SGPT) 12, Alkaline Phosphatase 130, Total Protein 6.1, Albumin 3.3 05/18/18 05:37: White Blood Count 5.2, Red Blood Count 3.08, Hemoglobin 9.2, Hematocrit 29, Mean Corpuscular Volume 93, Mean Corpuscular Hemoglobin 30, Mean Corpuscular Hemoglobin Concent 32, Red Cell Distribution Width 15.0, Platelet Count 229, Mean Platelet Volume 8.4, Neutrophils (%) (Auto) 66, Lymphocytes (%) (Auto) 20, Monocytes (%) (Auto) 13, Eosinophils (%) (Auto) 0, Basophils (%) (Auto) 1, Neutrophils # (Auto) 3.5, Lymphocytes # (Auto) 1.1, Monocytes # (Auto) 0.7, Eosinophils # (Auto) 0.0, Basophils # (Auto) 0.0, Sodium Level 136, Potassium Level 3.9, Chloride Level 101, Carbon Dioxide Level 28, Anion Gap 7, Blood Urea Nitrogen 9, Creatinine 0.77, Estimat Glomerular Filtration Rate > 60, BUN/ Creatinine Ratio 12, Glucose Level 149, Calcium Level 8.3, Corrected Calcium 8.8 , Total Bilirubin 0.2, Aspartate Amino Transf (AST/SGOT) 26, Alanine Aminotransferase (ALT/SGPT) 15, Alkaline Phosphatase 129, Total Protein 6.1, Albumin 3.4, Magnesium Level 2.0 05/19/18 05:51: White Blood Count 3.1, Red Blood Count 3.03, Hemoglobin 9.0, Hematocrit 28, Mean Corpuscular Volume 93, Mean Corpuscular Hemoglobin 30, Mean Corpuscular Hemoglobin Concent 32, Red Cell Distribution Width 15.4, Platelet Count 240, Mean Platelet Volume 8.3, Neutrophils (%) (Auto) 48, Lymphocytes (%) (Auto) 34, Monocytes (%) (Auto) 18, Eosinophils (%) (Auto) 0, Basophils (%) (Auto) 0, Neutrophils # (Auto) 1.5, Lymphocytes # (Auto) 1.0, Monocytes # (Auto) 0.6, Eosinophils # (Auto) 0.0, Basophils # (Auto) 0.0, Sodium Level 137, Potassium Level 4.1, Chloride Level 100, Carbon Dioxide Level 29, Anion Gap 8, Blood Urea Nitrogen 10, Creatinine 0.74, Estimat Glomerular Filtration Rate > 60, BUN/ Creatinine Ratio 14, Glucose Level 194, Calcium Level 8.5 Discharge Home Medications: Active Scripts Active Cefdinir 300 Mg Capsule 300 Mg PO BID 5 Days Reported Ondansetron Odt (Ondansetron) 4 Mg Tab.rapdis 4 Mg PO TID PRN Omeprazole 20 Mg Capsule.dr 20 Mg PO DAILY PRN Advair Hfa 115-21 Mcg Inhaler (Fluticasone/Salmeterol) 12 Gm Hfa.aer.ad 2 Puff INH BID Levofloxacin 500 Mg Tablet 500 Mg PO MOWEFR Hydrocodone-Acetamin 5-325 mg (Hydrocodone/Acetaminophen) 1 Each Tablet 1 Tab PO Q6H PRN Atorvastatin Calcium 10 Mg Tablet 10 Mg PO 0300 Carbamazepine 200 Mg Tablet 400 Mg PO 1500 TAKES 2 (200 MG) TABLETS Amlodipine Besylate 5 Mg Tablet 5 Mg PO 0800 Lamotrigine 25 Mg Tablet 25 Mg PO 1500,0300 Lisinopril 20 Mg Tablet 20 Mg PO 0300 Proair Hfa (Albuterol Sulfate) 1 Puff Puff 2 Puff IH Q6H PRN 1 PUFF = 90 MCG Spiriva (Tiotropium [place]) 1 Inh Aerp 1 Cap IH DAILY Albuterol Sulfate 2.5 Mg/3 Ml Vial.neb 2.5 Mg NEB 5XD PRN Tegretol (Carbamazepine) 200 Mg Tablet 200 Mg PO 0800,2300,0300 Phenytoin Sodium Extended 100 Mg Capsule 100 Mg PO 2300 Phenytoin Sodium Extended 100 Mg Capsule 200 Mg PO 0800,1500 TAKES 2 (100 MG) CAPSULES Gabapentin 600 Mg Tablet 600 Mg PO 0800,1500 Gabapentin 300 Mg Capsule 300 Mg PO 2300 Lamotrigine 100 Mg Tablet 100 Mg PO 1500,2300 Instructions to patient/family Please see electronic discharge instructions given to patient. Clinical Quality Measures DVT/VTE Risk/Contraindication: Risk Factor Score Per Nursin RFS Level Per Nursing on Admit: 4+=Very High AMANDEEP GENAO DO May 20, 2018 07:45
== END 2018-05-19 14:15 | disposition home or self-care (01) | DRG 194 ==
LOC: EDUNIT# 11:38 → ER 11:40 → ICU 13:27 → 4TH 05-16 12:40
PROVIDERS: ADMIT Internal Medicine; ATTEND Internal Medicine
DX: J18.1 Lobar pneumonia, unspecified organism (principal); E22.2 Syndrome of inappropriate secretion of antidiuretic hormone; C34.92 Malignant neoplasm of unspecified part of left bronchus or lung; C79.51 Secondary malignant neoplasm of bone; J98.11 Atelectasis; G40.909 Epilepsy, unspecified, not intractable, without status epilepticus; R09.02 Hypoxemia; D70.3 Neutropenia due to infection; R11.2 Nausea with vomiting, unspecified; R53.1 Weakness; J43.9 Emphysema, unspecified; E78.00 Pure hypercholesterolemia, unspecified; I10 Essential (primary) hypertension; G62.9 Polyneuropathy, unspecified; G14 Postpolio syndrome; M19.91 Primary osteoarthritis, unspecified site; G47.30 Sleep apnea, unspecified; S12.9XXD Fracture of neck, unspecified, subsequent encounter; Z92.21 Personal history of antineoplastic chemotherapy; Z87.891 Personal history of nicotine dependence; Z99.81 Dependence on supplemental oxygen
CPT/HCPCS: 36415; 36600; 71046; 80048; 80053; 82805; 83605; 83690; 83735; 85025; 87040; 94640; 94760; 96365; 96375

== ENCOUNTER 2018-06-10 03:20 | Inpatient (IN) | payer MEDICAID ==
[~2018-06-10] VITALS: Ht 182.9 cm; Wt 70.8 kg
[~2018-06-10 03:20] MED LIST changes: -LAMO25TA PO; +LAMO25TA8 PO
--- OUTSIDE RECORDS SUMMARY | 2018-06-10 03:26 | XMS REPORT | Clinical Summary ---
Author Author [facility] Organization [facility] Address Unknown Phone Unavailable Care Team Providers Care Poultry Scientist Name Role Phone Efra Valentino MD Unavailable Source Comments Some departments are not documenting in the electronic medical record. If you do not see the information that you expected, contact Release of Information in the Health Information Management department at [phone] for further assistance in locating additional records.[facility] Allergies Comments Active Allergy Reactions Severity Noted [...]
[2018-06-10] MEDS ORDERED: DEXAMETHASONE 4 MG/ML SDV (DECADRON) IH ONE (03:45)
[2018-06-10] MEDS ORDERED: RT-ALBUTEROL/IPRATROPIUM 3 ML (DUONEB) VIAL INH ONE ×2 (03:45→04:30)
[2018-06-10] MEDS ORDERED: methylPREDNISolone 125 MG (Solu-MEDROL) VIAL IVP ONE (04:00)
[2018-06-10 04:04] LABS: BASOPHILS % (AUTO) 0 % (0-10); EOSINOPHILS % (AUTO) 0 % (0-10); HEMATOCRIT 29 % (40-54); HEMOGLOBIN 9.5 G/DL (13.3-17.7); LYMPHOCYTES # (AUTO) 0.8 X 10^3 (1.0-4.0); LYMPHOCYTES % (AUTO) 16 % (12-44); MEAN CORPUSCULAR HEMOGLOBIN 30 PG (25-34); MEAN CORPUSCULAR HGB CONC 33 G/DL (32-36); MEAN CORPUSCULAR VOLUME 91 FL (80-99); MEAN PLATELET VOLUME 8.4 FL (7.4-10.4); MONOCYTES # (AUTO) 0.8 X 10^3 (0.0-1.0); MONOCYTES % (AUTO) 17 % (0-12); NEUTROPHILS # (AUTO) 3.4 X 10^3 (1.8-7.8); NEUTROPHILS % (AUTO) 67 % (42-75); PLATELET COUNT 211 10^3/uL (130-400); WHITE BLOOD COUNT 5.1 10^3/uL (4.3-11.0)
[2018-06-10 04:16] LABS: PROTHROMBIN TIME PATIENT 12.9 SEC (12.2-14.7)
[2018-06-10 04:23] LABS: ALANINE AMINOTRANSFERASE 6 U/L (0-55); ALBUMIN 3.9 GM/DL (3.2-4.5); ALKALINE PHOSPHATASE 161 U/L (40-136); BILIRUBIN,TOTAL 0.2 MG/DL (0.1-1.0); BUN/CREATININE RATIO 15; CALCIUM 8.9 MG/DL (8.5-10.1); CARBON DIOXIDE 25 MMOL/L (21-32); CHLORIDE 100 MMOL/L (98-107); CREATININE SERUM 0.72 MG/DL (0.60-1.30); GFR ESTIMATED > 60; GLUCOSE 147 MG/DL (70-105); POTASSIUM 4.4 MMOL/L (3.6-5.0); SODIUM 136 MMOL/L (135-145); TOTAL PROTEIN 7.2 GM/DL (6.4-8.2)
[2018-06-10] MEDS ORDERED: cefTRIAXone FOR IV USE 1,000 MG in WATER (STERILE) FOR INJECTION 10 ML IV ONE (04:30)
--- NOTE | 2018-06-10 05:15 | NUR ---
Cr Adamson admitted to room 426-1, with an admitting diagnosis of RLL Pneumonia, COPD Exacerbation, on 06/10/18 from ER via cart, accompanied by er staff. CR ADAMSON introduced to surroundings, call light, bed controls, phone, TV, temperature control, lights, meal times, smoking policy, visitor policy, side rail policy, bathrooms and showers. Patient Rights given to patient in the handbook.CR ADAMSON verbalizes understanding that [facility] is not responsible for the loss or damage to any personal effects or valuables that are kept in the patients possession during their hospitalization.
[2018-06-10 05:22] VITALS: BP 153/70
[2018-06-10] MEDS ORDERED: AZITHROMYCIN INJECTION 500 MG in NS (IVPB) 250 ML IV SCH (05:30)
[2018-06-10] MEDS ORDERED: ACETAMINOPHEN 500 MG TAB (TYLENOL) PO PRN (05:30)
[2018-06-10] MEDS ORDERED: MELO7.5T46 PO (05:42)
--- NOTE | 2018-06-10 06:31 | Pulmonary Consultation ---
History of Present Illness History of Present Illness Date of Consultation 06/10/18 06:30 Date of Admission Allergies and Home Medications Allergies Coded Allergies: aspirin (Unverified Allergy, Mild, DOES NOT WORK WELL W/ OTHER MEDS, 03/09) ibuprofen (Unverified Allergy, Mild, 03/09/18) Home Medications Albuterol Sulfate 2.5 Mg/3 Ml Vial.neb, 2.5 MG NEB 5XD PRN for SHORTNESS OF BREATH, (Reported) Albuterol Sulfate 1 Puff Puff, 2 PUFF IH Q6H PRN for SHORTNESS OF BREATH, ( Reported) 1 PUFF = 90 MCG Amlodipine Besylate 5 Mg Tablet, 5 MG PO 0800, (Reported) Atorvastatin Calcium 10 Mg Tablet, 10 MG PO 0300, (Reported) Carbamazepine 200 Mg Tablet, 200 MG PO 0800,2300,0300, (Reported) Carbamazepine 200 Mg Tablet, 400 MG PO 1500, (Reported) TAKES 2 (200 MG) TABLETS Cefdinir 300 Mg Capsule, 300 MG PO BID Prescribed by: AMANDEEP GENAO on 04/24/18 0731 Fluticasone/Salmeterol 12 Gm Hfa.aer.ad, 2 PUFF INH BID, (Reported) Gabapentin 300 Mg Capsule, 300 MG PO 2300, (Reported) Gabapentin 600 Mg Tablet, 600 MG PO 0800,1500, (Reported) Hydrocodone/Acetaminophen 1 Each Tablet, 1 TAB PO Q6H PRN for PAIN-MODERATE, ( Reported) Lamotrigine 100 Mg Tablet, 100 MG PO 1500,2300, (Reported) Lamotrigine 25 Mg Tablet, 25 MG PO 1500,0300, (Reported) Levofloxacin 500 Mg Tablet, 500 MG PO MoWeFr, (Reported) Lisinopril 20 Mg Tablet, 20 MG PO 0300, (Reported) Meloxicam 7.5 Mg Tablet, 7.5 MG PO DAILY, (Reported) Omeprazole 20 Mg Capsule.dr, 20 MG PO DAILY PRN for HEARTBURN, (Reported) Ondansetron 4 Mg Tab.rapdis, 4 MG PO TID PRN for NAUSEA/VOMITING-1ST LINE, ( Reported) Phenytoin Sodium Extended 100 Mg Capsule, 200 MG PO 0800,1500, (Reported) TAKES 2 (100 MG) CAPSULES Phenytoin Sodium Extended 100 Mg Capsule, 100 MG PO 2300, (Reported) Tiotropium [place] 1 Inh Aerp, 1 CAP IH DAILY, (Reported) Past [id number] Hx Patient Social History Alcohol Use: Past History Recreational Drug Use: Yes (not current, 15 years ago-ETOH and PO drugs) Type Used: Cigars, Cigarettes Former Smoker, Quit: Feb 12, 2017 2nd Hand Smoke Exposure: No (quit in 2016) Recent Foreign Travel: No Contact w/Someone Who Travel: No Recent Infectious Disease Expo: No Recent Hopitalizations: Yes Physical Abuse: No Sexual Abuse: No Mistreated: No Fear: No Immunizations Up To Date Tetanus Booster (TDap): Unknown PED Vaccines UTD: Yes Date of Influenza Vaccine: Apr 21, 2018 Seasonal Allergies Seasonal Allergies: Yes Past Medical History Surgeries: Yes (RIGHT PORT) Gallbladder Respiratory: Yes (METASTATIC LUNG CANCER DX 05/2017; COPD) Asthma, Pneumonia, Chronic Bronchitis, Sleep Apnea, COPD Currently Using CPAP: No Currently Using BIPAP: No Cardiac: Yes High Cholesterol, Hypertension Neurological: Yes (post polio syndrome with left-sided deficits) Neuropathy, Seizure Disorder, Vertigo Reproductive Disorders: No Sexually Transmitted Disease: No HIV/AIDS: No Genitourinary: No Gastrointestinal: Yes (CHRONIC NAUSEA/VOMITING) Musculoskeletal: Yes Arthritis, Fractures Endocrine: No HEENT: No Loss of Vision: Denies Hearing Impairment: Denies Cancer: Yes Lung Did You Recieve Any Treatments: Yes What Type of Treatment Did You: Chemotherapy Psychosocial: No Integumentary: No Blood Disorders: No Adverse Reaction/Blood Tranf: No Family Medical History Hypercholesterolemia 19 FATHER Hypertension 19 FATHER No Pertinent Family Hx, Heart Disease Sepsis Event Evaluation Height, Weight, BMI Height: 6'0.00" Weight: 156lbs. 0.0oz. [id number]; 21.2 BMI Method:Stated Exam Exam Vital Signs Date Time Temp Pulse Resp B/P (MAP) Pulse Ox O2 Delivery O2 Flow Rate FiO2 06/10/18 06:08 73 06/10/18 05:38 98.3 76 18 132/83 (99) 96 Nasal Cannula 3.00 06/10/18 05:22 98.3 76 18 153/70 96 Nasal Cannula 3.00 06/10/18 05:15 Nasal Cannula 3.00 06/10/18 04:55 98.6 77 22 133/76 97 Nasal Cannula 3.00 06/10/18 04:00 97 Nasal Cannula 3.00 06/10/18 03:23 97 Nasal Cannula 3.00 06/10/18 03:22 98.6 84 22 133/76 (95) 95 Nasal Cannula 3.00 I & O 06/10/18 07:00 Intake Total 10 ml Balance 10 ml Height & Weight Height: 6'0.00" Weight: 156lbs. 0.0oz. [id number]; 21.2 BMI Method:Stated Capillary Refill: Less Than 3 Seconds Results Lab Laboratory Tests 06/10/18 03:42 Assessment/Plan Assessment/Plan Right sided Pneumonia with hypoxia and atelectasis -Zosyn -IS left Metastatic lung cancer to left femur -undergoing chemotherapy Seizures hx -Seizure precautions -Home meds Anemia -Monitor RANI PACHCEO DO Jun 10, 2018 06:30
--- NOTE | 2018-06-10 07:02 | ED Respiratory ---
General Chief Complaint: Respiratory Problems Stated Complaint: RLL PNEUMONIA COPD EXACERBATION Nursing Triage Note: PT REPORTS INCREASING SOA THAT IS UNRELIEVED BY HOME BREATHING TREATMENTS, PT REPORTS A HX OF LUNG CANCER, RECIEVING CHEMO TREATMENTS, LAST TX FRIDAY. PT DENIES COUGH. PT REPORTS SOA IS WORST UPON EXERTION, PT VERBALIZED FREQUENT DIAGNOSIS OF PNEUMONIA PREVIOUSLY Source: patient, old records History of Present Illness Date Seen by Provider: Jun 10, 2018 Time Seen by Provider: 03:30 Initial Comments PT ARRIVES VIA POV FROM HOME PT WITH SIGNIFICANT HISTORY OF COPD AND WEARS HOME O2 AT 2L/NC CONTINUOUSLY. 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 PT C/O NON-PRODUCTIVE COUGH AND INCREASED SHORTNESS OF BREATH FOR THE LAST 2 DAYS STATES "I STARTED MY TREATMENTS BACK UP" --STATES HE HAS BEEN DOING ALBUTEROL NEB TREATMENTS "EVERY 4 HOURS" BUT HAS NOT HAD A TREATMENT SINCE 1899 LAST NIGHT. STATES HE HAS ALSO BEEN USING SPIRIVA, ADVAIR AND SYMBICORT INHALERS WELL--NO RELIEF NO FEVER/SWEATS/CHILLS NO SWELLING IN LEGS/ FEET OR PAIN IN CALVES NO CHEST PAIN NO PALPITATIONS PT WITH MULTITUDE OF VISITS, ESPECIALLY THE LAST FEW MONTHS ADMITTED 04/21/18 AND 05/15/18 FOR PNEUMONIA- SEE OLD CHARTS FOR DETAILS PCP: DR. GENAO ONCOLOGIST: DR. PRICE STRAIGHT LINE EDGER: DR. PACHECO Allergies and Home Medications Allergies Coded Allergies: aspirin (Unverified Allergy, Mild, DOES NOT WORK WELL W/ OTHER MEDS, 03/09) ibuprofen (Unverified Allergy, Mild, 03/09/18) Home Medications Albuterol Sulfate 2.5 Mg/3 Ml Vial.neb, 2.5 MG NEB 5XD PRN for SHORTNESS OF BREATH, (Reported) Albuterol Sulfate 1 Puff Puff, 2 PUFF IH Q6H PRN for SHORTNESS OF BREATH, ( Reported) 1 PUFF = 90 MCG Amlodipine Besylate 5 Mg Tablet, 5 MG PO 0800, (Reported) Atorvastatin Calcium 10 Mg Tablet, 10 MG PO 0300, (Reported) Carbamazepine 200 Mg Tablet, 200 MG PO 0800,2300,0300, (Reported) Carbamazepine 200 Mg Tablet, 400 MG PO 1500, (Reported) TAKES 2 (200 MG) TABLETS Cefdinir 300 Mg Capsule, 300 MG PO BID Prescribed by: AMANDEEP GENAO on 04/24/18 0731 Fluticasone/Salmeterol 12 Gm Hfa.aer.ad, 2 PUFF INH BID, (Reported) Gabapentin 300 Mg Capsule, 300 MG PO 2300, (Reported) Gabapentin 600 Mg Tablet, 600 MG PO 0800,1500, (Reported) Hydrocodone/Acetaminophen 1 Each Tablet, 1 TAB PO Q6H PRN for PAIN-MODERATE, ( Reported) Lamotrigine 100 Mg Tablet, 100 MG PO 1500,2300, (Reported) Lamotrigine 25 Mg Tablet, 25 MG PO 1500,0300, (Reported) Levofloxacin 500 Mg Tablet, 500 MG PO MoWeFr, (Reported) Lisinopril 20 Mg Tablet, 20 MG PO 0300, (Reported) Meloxicam 7.5 Mg Tablet, 7.5 MG PO DAILY, (Reported) Omeprazole 20 Mg Capsule.dr, 20 MG PO DAILY PRN for HEARTBURN, (Reported) Ondansetron 4 Mg Tab.rapdis, 4 MG PO TID PRN for NAUSEA/VOMITING-1ST LINE, ( Reported) Phenytoin Sodium Extended 100 Mg Capsule, 200 MG PO 0800,1500, (Reported) TAKES 2 (100 MG) CAPSULES Phenytoin Sodium Extended 100 Mg Capsule, 100 MG PO 2300, (Reported) Tiotropium [place] 1 Inh Aerp, 1 CAP IH DAILY, (Reported) Patient Home Medication List Home Medication List Reviewed: Yes Review of Systems Review of Systems Constitutional: No diaphoresis, No fever EENTM: no symptoms reported Respiratory: see HPI, cough, short of breath, wheezing Cardiovascular: No chest pain, No edema, No palpitations, No syncope Gastrointestinal: no symptoms reported Genitourinary: no symptoms reported Musculoskeletal: no symptoms reported, other (PT HAD CERVICAL SPINE FRACTURE , PT IS NOT WEARING C-COLLAR TODAY) Psychiatric/Neurological: No Symptoms Reported; Denies Headache, Denies Numbness, Denies Paresthesia; Pre-Existing Deficit (POST POLIO WITH LEFT SIDE WEAKNESS AND CONTRACTURES) Past Qfnpmve-Jaaofn-Jhkifl Hx Patient Social History Alcohol Use: Past History (HISTORY OF ABUSE) Recreational Drug Use: Yes (HX OF RX DRUG ABUSE, CLAIMS NONE FOR 15 YEARS) Drug of Choice: HX OF RX DRUG ABUSE, CLAIMS NONE 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 Smoking Status: Former Smoker (2 PPD, QUIT 05/2017) Type Used: Cigars, Cigarettes Former Smoker, Quit: May 01, 2017 2nd Hand Smoke Exposure: No (quit in 2016) Recent Foreign Travel: No Contact w/Someone Who Travel: No Recent Infectious Disease Expo: No Recent Hopitalizations: Yes Physical Abuse: No Sexual Abuse: No Mistreated: No Fear: No Immunizations Up To Date Tetanus Booster (TDap): Unknown PED Vaccines UTD: Yes Date of Influenza Vaccine: Apr 21, 2018 Seasonal Allergies Seasonal Allergies: Yes Past Medical History Surgeries: Yes (PORT RIGHT CHEST; CT GUIDED BX OF FEMUR; BILATERAL CATARACT SURGERY) Eye Surgery, Gallbladder Respiratory: Yes (METASTATIC LUNG CANCER DX 05/2017; COPD--O2 DEPENDENT ) Asthma, Pneumonia, Chronic Bronchitis, Sleep Apnea, COPD Currently Using CPAP: No Currently Using BIPAP: No Cardiac: Yes Heart Murmur, High Cholesterol, Hypertension, Valvular Heart Disease 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 ) Neuropathy, Seizure Disorder, Vertigo Reproductive Disorders: No Sexually Transmitted Disease: No HIV/AIDS: No Genitourinary: No Gastrointestinal: Yes (CHRONIC NAUSEA/VOMITING) Musculoskeletal: Yes (METASTATIC LUNG CANCER TO BONE/RIGHT HIP; 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; GENERALIZED WEAKNESS AND FREQUENT FALLS; CERVICAL SPINE FRACTURE 02/2018--NO SURGERY) Arthritis, Fractures Endocrine: No HEENT: No Loss of Vision: Denies Hearing Impairment: Denies Cancer: Yes (METASTATIC LUNG CANCER --METS TO BONE/RIGHT HIP DX 05/2017) Lung Did You Recieve Any Treatments: Yes (WEEKLY CHEMO) What Type of Treatment Did You: Chemotherapy Psychosocial: No Integumentary: No Blood Disorders: No Adverse Reaction/Blood Tranf: No Family Medical History Hypercholesterolemia 19 FATHER Hypertension 19 FATHER No Pertinent Family Hx, Heart Disease Physical Exam Vital Signs - First Documented 06/10/18 03:22 Temp 98.6 Pulse 84 Resp 22 B/P (MAP) 133/76 (95) Pulse Ox 95 O2 Delivery Nasal Cannula O2 Flow Rate 3.00 Capillary Refill : Less Than 3 SecondsLess Than 3 Seconds Height: 6'0.00" Weight: 156lbs. 0.0oz. 70.103073ku; 21.2 BMI Method:Stated General Appearance: no apparent distress, thin, other (DIRTY, UNKEMPT) HEENT: other (EDENTULOUS) Neck: non-tender Respiratory: no respiratory distress, no accessory muscle use, other ( DECREASED AERATION IN RIGHT > LEFT BASE; SCATTERED EXPIRATORY WHEEZING AND RALES. 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 tested, alert, normal mood/affect, oriented x 3, other (LEFT SIDED CONTRACTURES) Skin: normal color, warm/dry Focused Exam Lactate Level 06/10/18 03:42: Lactic Acid Level 1.24 Lactic Acid Level Laboratory Tests Test 06/10/18 03:42 Lactic Acid Level 1.24 MMOL/L (0.50-2.00) Procedures/Interventions Date of ETT Placement: Mar 09, 2017 Time of ETT Placement: 1811 Suture Size: 5-0 Progress/Results/Core Measures Suspected Sepsis Recent Fever Within 48 Hours: No Infection Criteria Present: Documented Infection New/Unexplained Altered Menta: No Sepsis Screen: No Definite Risk SIRS Temperature:98.3 Pulse: 73 Respiratory Rate: 18 Laboratory Tests 06/10/18 03:42: White Blood Count 5.1 Blood Pressure 132 /83 Mean: 99 06/10/18 03:42: Lactic Acid Level 1.24 Laboratory Tests 06/10/18 03:42: Creatinine 0.72, INR Comment 1.0, Platelet Count 211, Total Bilirubin 0.2 Results/Orders Lab Results Laboratory Tests Test 06/10/18 03:42 Range/Units White Blood Count 5.1 4.3-11.0 10^3/uL Red Blood Count 3.14 L 4.35-5.85 10^6/uL Hemoglobin 9.5 L 13.3-17.7 G/DL Hematocrit 29 L 40-54 % Mean Corpuscular Volume 91 80-99 FL Mean Corpuscular Hemoglobin 30 25-34 PG Mean Corpuscular Hemoglobin Concent 33 32-36 G/DL Red Cell Distribution Width 15.0 H 10.0-14.5 % Platelet Count 211 130-400 10^3/uL Mean Platelet Volume 8.4 7.4-10.4 FL Neutrophils (%) (Auto) 67 42-75 % Lymphocytes (%) (Auto) 16 12-44 % Monocytes (%) (Auto) 17 H 0-12 % Eosinophils (%) (Auto) 0 0-10 % Basophils (%) (Auto) 0 0-10 % Neutrophils # (Auto) 3.4 1.8-7.8 X 10^3 Lymphocytes # (Auto) 0.8 L 1.0-4.0 X 10^3 Monocytes # (Auto) 0.8 0.0-1.0 X 10^3 Eosinophils # (Auto) 0.0 0.0-0.3 10^3/uL Basophils # (Auto) 0.0 0.0-0.1 10^3/uL Prothrombin Time 12.9 12.2-14.7 SEC INR Comment 1.0 0.8-1.4 Activated Partial Thromboplast Time 42 H 24-35 SEC Sodium Level 136 135-145 MMOL/L Potassium Level 4.4 3.6-5.0 MMOL/L Chloride Level 100 98-107 MMOL/L Carbon Dioxide Level 25 21-32 MMOL/L Anion Gap 11 5-14 MMOL/L Blood Urea Nitrogen 11 7-18 MG/DL Creatinine 0.72 0.60-1.30 MG/DL Estimat Glomerular Filtration Rate > 60 BUN/Creatinine Ratio 15 Glucose Level 147 H 70-105 MG/DL Lactic Acid Level 1.24 0.50-2.00 MMOL/L Calcium Level 8.9 8.5-10.1 MG/DL Corrected Calcium 9.0 8.5-10.1 MG/DL Total Bilirubin 0.2 0.1-1.0 MG/DL Aspartate Amino Transf (AST/SGOT) 14 5-34 U/L Alanine Aminotransferase (ALT/SGPT) 6 0-55 U/L Alkaline Phosphatase 161 H 40-136 U/L Troponin I < 0.028 <0.028 NG/ML B-Type Natriuretic Peptide 97.3 <100.0 PG/ML Total Protein 7.2 6.4-8.2 GM/DL Albumin 3.9 3.2-4.5 GM/DL Procalcitonin 0.03 <0.10 NG/ML Micro Results Microbiology 06/10/18 Influenza Types A,B Antigen (VY) - Final, Complete My Orders Orders - SOREN,CHUNG K DO Cbc With Automated Diff (06/10/18 03:35) Comprehensive Metabolic Panel (06/10/18 03:35) Blood Culture (06/10/18 03:35) Sputum Culture (06/10/18 03:35) Protime With Inr (06/10/18 03:35) Partial Thromboplastin Time (06/10/18 03:35) Chest 1 View, Ap/Pa Only (06/10/18 03:35) Saline Lock/Iv-Start (06/10/18 03:35) Saline Lock/Iv-Start (06/10/18 03:35) Ekg Tracing (06/10/18 03:35) Troponin I (06/10/18 03:35) O2 (06/10/18 03:35) Lactic Acid Analyzer (06/10/18 03:35) Influenza A And B Antigens (06/10/18 03:35) Albuterol/Ipra Inhalation Soln (Duoneb I (06/10/18 03:45) Dexamethasone Injection (Decadron Inject (06/10/18 03:45) Rt Request For Service (06/10/18 03:35) Svn Small Volume Nebulizer (06/10/18 03:35) Methylprednisolone Sod Succ (Solu-Medrol (06/10/18 04:00) Ceftriaxone For Iv Use (Rocephin For I (06/10/18 04:30) Albuterol/Ipra Inhalation Soln (Duoneb I (06/10/18 04:30) Svn Small Volume Nebulizer (06/10/18 04:19) Medications Given in ED Current Medications Medications Dose Ordered Sig/Porfirio Route Start Time Stop Time Status Last Admin Dose Admin Albuterol/ Ipratropium 3 ml ONCE ONCE INH 06/10/18 03:45 06/10/18 03:47 DC 06/10/18 04:00 3 ML Albuterol/ Ipratropium 3 ml ONCE ONCE INH 06/10/18 04:30 06/10/18 04:31 DC 06/10/18 04:21 3 ML Ceftriaxone Sodium 1000 mg/ Sterile Water 10 ml @ 200 mls/hr ONCE ONCE IV 06/10/18 04:30 06/10/18 04:32 DC 06/10/18 04:33 200 MLS/HR Dexamethasone Sodium Phosphate 20 mg ONCE ONCE IH 06/10/18 03:45 06/10/18 03:47 DC 06/10/18 04:00 20 MG Methylprednisolone Sodium Succinate 125 mg ONCE ONCE IVP 06/10/18 04:00 06/10/18 04:01 DC 06/10/18 04:18 125 MG Vital Signs/I&O 06/10/18 06/10/18 06/10/18 03:22 03:23 04:00 Temp 98.6 Pulse 84 Resp 22 B/P (MAP) 133/76 (95) Pulse Ox 95 97 97 O2 Delivery Nasal Cannula Nasal Cannula Nasal Cannula O2 Flow Rate 3.00 3.00 3.00 Capillary Refill : Less Than 3 SecondsLess Than 3 Seconds Blood Pressure Mean: 99 Progress Note : Progress Note NO DETERIORATION IN CONDITION DURING ER STAY GIVEN NEB TREATMENTS X 2 WITH MINIMAL IMPROVEMENT IN LUNG SOUNDS, PT STATES HE FEELS MORE SHORT OF BREATH AFTER 2ND ONE, BUT PT IS NOT DYSPNEIC AND O2 SATS REMAIN IN MID 90'S ON O2 AT 2L/NC. NO COUGH NOTED DURING ER STAY ECG Initial ECG Impression Date: Jun 10, 2018 Initial ECG Impression Time: 04:17 Initial ECG Rate: 74 Initial ECG Rhythm: Normal Sinus Initial ECG Comparisson: Unchanged (CHRONIC CHANGES) Diagnostic Imaging Comments CXRS--RLL INFILTRATE/ATELECTASIS, PENDING RADIOLOGIST REVIEW Reviewed: Reviewed by Me Departure Communication (Admissions) [id number]--SPOKE WITH DR. GENAO, ACCEPTS PT FOR ADMIT. Impression Primary Impression: RLL pneumonia Additional Impressions: COPD exacerbation Lung cancer metastatic to bone Disposition: ADMITTED INPATIENT Condition: Improved Admissions Decision to Admit Reason: Admit from ER (General) Decision to Admit/Date: Jun 10, 2018 Time/Decision to Admit Time: 04:35 Departure-Patient Inst. Referrals: AMANDEEP GENAO DO (PCP) Primary Care Physician CHUNG DOTY DO Jun 10, 2018 07:02
[2018-06-10 07:28] VITALS: BP 125/67
[2018-06-10 07:47] VITALS: BP 125/67
[2018-06-10] MEDS ORDERED: RT-ALBUTEROL/IPRATROPIUM 3 ML (DUONEB) VIAL INH PRN (08:15)
[2018-06-10] MEDS ORDERED: ONDANSETRON 4 MG (ZOFRAN) ORAL DISSOLVE TAB PO PRN (08:15)
--- NOTE | 2018-06-10 08:19 | History & Physicial ---
History of Present Illness History of Present Illness Reason for visit/HPI Patient came to the emergency room due to short of breath. Patient has lung cancer. Patient has COPD. Patient received chemotherapy last Friday. Patient start short of air last night Patient gets pneumonia frequently. Patient treated as outpatient and fails to outpatient treatment. Patient has metastatic lung cancer to bone. Patient short of air and wheezing and admitted and chest x-ray showing pneumonia Date of Admission Jun 10, 2018 at 04:35 Time Seen by a Provider: 08:14 I consulted on this patient on 06/10/18 08:14 Attending Physician Micky Genao DO Admitting Physician Micky Genao DO Consult Allergies and Home Medications Allergies Coded Allergies: aspirin (Unverified Allergy, Mild, DOES NOT WORK WELL W/ OTHER MEDS, 03/09) ibuprofen (Unverified Allergy, Mild, 03/09/18) Home Medications Albuterol Sulfate 2.5 Mg/3 Ml Vial.neb, 2.5 MG NEB 5XD PRN for SHORTNESS OF BREATH, (Reported) Albuterol Sulfate 1 Puff Puff, 2 PUFF IH Q6H PRN for SHORTNESS OF BREATH, ( Reported) 1 PUFF = 90 MCG Amlodipine Besylate 5 Mg Tablet, 5 MG PO 0800, (Reported) Atorvastatin Calcium 10 Mg Tablet, 10 MG PO 0300, (Reported) Carbamazepine 200 Mg Tablet, 200 MG PO 0800,2300,0300, (Reported) Carbamazepine 200 Mg Tablet, 400 MG PO 1500, (Reported) TAKES 2 (200 MG) TABLETS Cefdinir 300 Mg Capsule, 300 MG PO BID Prescribed by: MICKY GENAO on 04/24/18 0731 Fluticasone/Salmeterol 12 Gm Hfa.aer.ad, 2 PUFF INH BID, (Reported) Gabapentin 300 Mg Capsule, 300 MG PO 2300, (Reported) Gabapentin 600 Mg Tablet, 600 MG PO 0800,1500, (Reported) Hydrocodone/Acetaminophen 1 Each Tablet, 1 TAB PO Q6H PRN for PAIN-MODERATE, ( Reported) Lamotrigine 100 Mg Tablet, 100 MG PO 1500,2300, (Reported) Lamotrigine 25 Mg Tablet, 25 MG PO 1500,0300, (Reported) Levofloxacin 500 Mg Tablet, 500 MG PO MoWeFr, (Reported) Lisinopril 20 Mg Tablet, 20 MG PO 0300, (Reported) Meloxicam 7.5 Mg Tablet, 7.5 MG PO DAILY, (Reported) Omeprazole 20 Mg Capsule.dr, 20 MG PO DAILY PRN for HEARTBURN, (Reported) Ondansetron 4 Mg Tab.rapdis, 4 MG PO TID PRN for NAUSEA/VOMITING-1ST LINE, ( Reported) Phenytoin Sodium Extended 100 Mg Capsule, 200 MG PO 0800,1500, (Reported) TAKES 2 (100 MG) CAPSULES Phenytoin Sodium Extended 100 Mg Capsule, 100 MG PO 2300, (Reported) Tiotropium [place] 1 Inh Aerp, 1 CAP IH DAILY, (Reported) Patient Home Medication List Home Medication List Reviewed: Yes Past Mncrtmk-Gtsrev-Afekjx Hx Patient Social History Marrital Status: cohabiting Employed/Student: unemployed Alcohol Use: Past History (HISTORY OF ABUSE) Recreational Drug Use: Yes (HX OF RX DRUG ABUSE, CLAIMS NONE FOR 15 YEARS) Drug of Choice: HX OF RX DRUG ABUSE, CLAIMS NONE 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 Smoking Status: Former Smoker (2 04/01 PPD, QUIT 05/2017) Former Smoker, Quit: May 01, 2017 Type Used: Cigars, Cigarettes 2nd Hand Smoke Exposure: No (quit in 2017) Recent Foreign Travel: No Contact w/other who traveled: No Recent Hopitalizations: Yes Recent Infectious Disease Expo: No Immunizations Up To Date Tetanus Booster (TDap): Unknown Pediatric: Yes Date of Influenza Vaccine: Apr 21, 2018 Seasonal Allergies Seasonal Allergies: Yes Surgeries Yes (PORT RIGHT CHEST; CT GUIDED BX OF FEMUR; BILATERAL CATARACT SURGERY) Eye Surgery, Gallbladder Respiratory Yes (METASTATIC LUNG CANCER DX 05/2017; COPD--O2 DEPENDENT ) COPD, Emphysema, Pneumonia Currently Using CPAP: No Currently Using BIPAP: No Cardiovascular Yes Heart Murmur, High Cholesterol, Hypertension, Valvular Heart Disease Neurological 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) Neuropathy, Seizure Disorder, Vertigo Reproductive System Hx Reproductive Disorders: No Sexually Transmitted Disease: No HIV/AIDS: No Genitourinary No Gastrointestinal Yes (CHRONIC NAUSEA/VOMITING) Musculoskeletal Yes (METASTATIC LUNG CANCER TO BONE/RIGHT HIP; 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; GENERALIZED WEAKNESS AND FREQUENT FALLS; CERVICAL SPINE FRACTURE 02/2018--NO SURGERY) Arthritis, Fractures Endocrine History of Endocrine Disorders: No HEENT History of HEENT Disorders: No Loss of Vision: Denies Hearing Impairment: Denies Cancer Yes (METASTATIC LUNG CANCER --METS TO BONE/RIGHT HIP DX 05/2017) Lung Did You Recieve Any Treatments: Yes (WEEKLY CHEMO) Type of Treatment: Chemotherapy Psychosocial History of Psychiatric Problem: No Integumentary History of Skin or Integumenta: No Blood Transfusions History of Blood Disorders: No Adverse Reaction to a Blood Tr: No Family Medical History Significant Family History: No Pertinent Family Hx, Heart Disease Family Hx: Hypercholesterolemia 19 FATHER Hypertension 19 FATHER Review of Systems Constitutional: other (Short of the abdomen with exertion) EENTM: no symptoms reported Respiratory: cough, dyspnea on exertion, wheezing Gastrointestinal: no symptoms reported Genitourinary: no symptoms reported Physical Exam Vital Signs Vital Signs - First Documented 06/10/18 06/10/18 03:22 07:47 Temp 98.6 Pulse 84 Resp 22 B/P (MAP) 133/76 (95) Pulse Ox 95 O2 Delivery Nasal Cannula O2 Flow Rate 3.00 FiO2 32 Capillary Refill : Less Than 3 SecondsLess Than 3 Seconds Height, Weight, BMI Height: 6'0.00" Weight: 156lbs. 0.0oz. 70.400817ml; 21.2 BMI Method:Stated General Appearance: No Apparent Distress, Thin Eyes: Bilateral Eye Normal Inspection HEENT: Normal ENT Inspection Neck: Full Range of Motion Respiratory: No Accessory Muscle Use, No Respiratory Distress, Decreased Breath Sounds, Wheezing Cardiovascular: Regular Rate, Rhythm, No Murmur Gastrointestinal: Non Tender, Soft Assessment/Plan Assessment and Plan Right lower lobe pneumonia. Lung cancer. Metastasis to bone. Short of the air. COPD with acute exacerbation. CAD. Hypertension. Hyperlipidemia Admission Diagnosis Admission Status: Inpatient Order (span 2 midnights) Reason for Inpatient Admission: Pneumonia. Lung cancer with metastasis. COPD with acute exacerbation. Hypertension. Coronary artery disease Clinical Quality Measures DVT/VTE Risk/Contraindication: Risk Factor Score Per Nursin RFS Level Per Nursing on Admit: 4+=Very High MICKY GENAO DO Jun 10, 2018 08:19
[2018-06-10] MEDS: ENOXAPARIN 40 MG/0.4 ML (LOVENOX) SYR SC SCH (08:22)
--- NOTE | 2018-06-10 08:24 | Diagnostic Imaging Report ---
INDICATION: Chest pain. COMPARISON: 05/15/2018. FINDINGS: Right basilar mixed linear and ill-defined airspace opacities are similar. Left basilar heterogeneous opacities have mildly progressed. No pneumothorax. No definitive pleural effusion. Heart is normal in size. Stable right IJ Port-A-Cath. IMPRESSION: Bibasilar heterogeneous opacities have progressed since prior examination and may represent infectious process. Dictated by: Dictated on workstation # [id number]
[2018-06-10] MEDS: MELOXICAM 7.5 MG (MOBIC) TABLET PO SCH (09:30)
[2018-06-10] MEDS ORDERED: HYDROcodone/APAP 5 MG/325 MG (LORTAB) TAB PO PRN (09:30)
[2018-06-10] MEDS: carBAMazepine 200 MG (TEGretol) TAB PO SCH ×3 (09:31→23:10)
[2018-06-10] MEDS: amLODIPine 5 MG (NORVASC) TAB PO SCH (09:31)
[2018-06-10] MEDS: PHENYTOIN 100 MG (DILANTIN) CAP PO SCH ×3 (09:31→23:10)
--- NOTE | 2018-06-10 09:32 | NUR ---
patient took own home meds
[2018-06-10 09:58] LABS: BILIRUBIN,URINE NEGATIVE (NEGATIVE); CLARITY,URINE CLEAR; COLOR,URINE YELLOW; GLUCOSE, URINE (UA) NEGATIVE (NEGATIVE); KETONES,URINE NEGATIVE (NEGATIVE); LEUKOCYTE ESTERASE ,URINE NEGATIVE (NEGATIVE); NITRITE,URINE NEGATIVE (NEGATIVE); PH,URINE 6 (5-9); PROTEIN,URINE NEGATIVE (NEGATIVE); UROBILINOGEN,URINE NORMAL (NORMAL)
[2018-06-10] MEDS ORDERED: methylPREDNISolone 125 MG (Solu-MEDROL) VIAL IVP SCH (10:00)
[2018-06-10 10:19] LABS: BACTERIA,URINE NEGATIVE /HPF; SQUAMOUS EPITHELIAL CELL,UR RARE /HPF; WBC,URINE RARE /HPF
[2018-06-10] MEDS: RT-ALBUTEROL/IPRATROPIUM 3 ML (DUONEB) VIAL INH SCH ×3 (11:18→21:37)
[2018-06-10] MEDS: RT-ADVAIR HFA 115/21 MCG PER PUFF IH SCH ×2 (11:18→21:37)
[2018-06-10] MEDS: UMECLIDINIUM BROMIDE (INCRUSE ELLIPTA) 7'S IH SCH (11:18)
[2018-06-10 11:39] VITALS: BP 126/71
[2018-06-10] MEDS: GABAPENTIN 600 MG (NEURONTIN) TAB PO SCH (15:43)
[2018-06-10] MEDS: PANTOPRAZOLE 20 MG TABLET (PROTONIX) PO PRN (15:43)
[2018-06-10] MEDS: lamoTRIgine 25 MG (LaMICtal) TAB PO SCH (15:43)
[2018-06-10] MEDS: methylPREDNISolone 40 MG/ML (Solu-MEDROL) VIAL IV SCH (15:44)
[2018-06-10 16:50] VITALS: BP 157/80
[2018-06-10 20:11] VITALS: BP 139/63
[2018-06-10] MEDS: GABAPENTIN 300 MG (NEURONTIN) CAP PO SCH (23:10)
[2018-06-11] VITALS: BP 134/68
[2018-06-11] MEDS: RT-ALBUTEROL/IPRATROPIUM 3 ML (DUONEB) VIAL INH SCH ×6 (01:54→21:16)
[2018-06-11] MEDS: lisINopril 20 MG (PRINIVIL) TABLET PO SCH (03:31)
[2018-06-11] MEDS: ATORVASTATIN 10 MG (LIPITOR) TABLET PO SCH (03:31)
[2018-06-11] MEDS: lamoTRIgine 25 MG (LaMICtal) TAB PO SCH ×2 (03:31→15:31)
[2018-06-11] MEDS: carBAMazepine 200 MG (TEGretol) TAB PO SCH ×4 (03:34→22:30)
[2018-06-11] MEDS: methylPREDNISolone 40 MG/ML (Solu-MEDROL) VIAL IV SCH ×2 (04:17→15:32)
[2018-06-11] MEDS: cefTRIAXone FOR IV USE 1,000 MG in WATER (STERILE) FOR INJECTION 10 ML IV SCH (04:17)
[2018-06-11 04:22] VITALS: BP 118/58
[2018-06-11 05:46] LABS: BASOPHILS % (AUTO) 0 % (0-10); EOSINOPHILS % (AUTO) 0 % (0-10); HEMATOCRIT 26 % (40-54); HEMOGLOBIN 8.4 G/DL (13.3-17.7); LYMPHOCYTES # (AUTO) 0.9 X 10^3 (1.0-4.0); LYMPHOCYTES % (AUTO) 30 % (12-44); MEAN CORPUSCULAR HEMOGLOBIN 29 PG (25-34); MEAN CORPUSCULAR HGB CONC 32 G/DL (32-36); MEAN CORPUSCULAR VOLUME 91 FL (80-99); MEAN PLATELET VOLUME 8.4 FL (7.4-10.4); MONOCYTES # (AUTO) 0.5 X 10^3 (0.0-1.0); MONOCYTES % (AUTO) 17 % (0-12); NEUTROPHILS # (AUTO) 1.6 X 10^3 (1.8-7.8); NEUTROPHILS % (AUTO) 53 % (42-75); PLATELET COUNT 185 10^3/uL (130-400); RED CELL DISTRIBUTION WIDTH 14.8 % (10.0-14.5); WHITE BLOOD COUNT 3.1 10^3/uL (4.3-11.0)
[2018-06-11 06:03] LABS: ALANINE AMINOTRANSFERASE 6 U/L (0-55); ALBUMIN 3.5 GM/DL (3.2-4.5); ALKALINE PHOSPHATASE 140 U/L (40-136); BILIRUBIN,TOTAL 0.2 MG/DL (0.1-1.0); BUN/CREATININE RATIO 14; CALCIUM 8.5 MG/DL (8.5-10.1); CARBON DIOXIDE 26 MMOL/L (21-32); CHLORIDE 99 MMOL/L (98-107); CREATININE SERUM 0.71 MG/DL (0.60-1.30); GFR ESTIMATED > 60; GLUCOSE 171 MG/DL (70-105); POTASSIUM 3.9 MMOL/L (3.6-5.0); SODIUM 134 MMOL/L (135-145); TOTAL PROTEIN 6.4 GM/DL (6.4-8.2)
[2018-06-11] MEDS: RT-ADVAIR HFA 115/21 MCG PER PUFF IH SCH ×2 (06:26→18:56)
[2018-06-11] MEDS: UMECLIDINIUM BROMIDE (INCRUSE ELLIPTA) 7'S IH SCH (06:27)
[2018-06-11] MEDS: ENOXAPARIN 40 MG/0.4 ML (LOVENOX) SYR SC SCH (07:48)
[2018-06-11] MEDS: PHENYTOIN 100 MG (DILANTIN) CAP PO SCH ×3 (07:48→22:30)
[2018-06-11] MEDS: PANTOPRAZOLE 20 MG TABLET (PROTONIX) PO PRN (07:48)
[2018-06-11] MEDS: amLODIPine 5 MG (NORVASC) TAB PO SCH (07:48)
[2018-06-11] MEDS: MELOXICAM 7.5 MG (MOBIC) TABLET PO SCH (07:48)
[2018-06-11] MEDS: GABAPENTIN 600 MG (NEURONTIN) TAB PO SCH ×2 (07:48→15:31)
[2018-06-11] MEDS: AZITHROMYCIN 250 MG TAB (ZITHROMAX) PO SCH (07:48)
[2018-06-11 08:00] VITALS: BP 106/55
--- NOTE | 2018-06-11 08:24 | Progress Note (SOAP) ---
Subjective Time Seen by a Provider: 08:23 Subjective/Events-last exam Patient states she's feeling better. Patient states he still short of breath when he walks around area Patient just got his chest x-ray done Focused Exam Lactate Level 06/10/18 03:42: Lactic Acid Level 1.24 Objective Exam Vital Signs Date Time Temp Pulse Resp B/P (MAP) Pulse Ox O2 Delivery O2 Flow Rate FiO2 06/11/18 08:00 98.4 85 18 106/55 (72) 95 Nasal Cannula 1.50 06/11/18 06:29 92 Nasal Cannula 3.00 06/11/18 06:28 92 Nasal Cannula 3.00 06/11/18 06:27 92 Nasal Cannula 3.00 06/11/18 04:22 97.7 65 16 118/58 (78) 97 Nasal Cannula 1.50 06/11/18 01:54 91 Nasal Cannula 2.00 06/11/18 01:00 59 06/11/18 00:00 98.4 65 16 134/68 (90) 97 Nasal Cannula 2.00 06/10/18 21:44 97 Nasal Cannula 1.50 06/10/18 21:38 95 Nasal Cannula 2.00 06/10/18 20:11 98.5 66 18 139/63 (88) 97 Nasal Cannula 2.00 06/10/18 20:00 Nasal Cannula 2.00 06/10/18 19:00 69 06/10/18 16:50 98.0 65 18 157/80 (105) 98 Nasal Cannula 2.00 06/10/18 14:47 93 Nasal Cannula 2.00 06/10/18 12:55 63 06/10/18 11:39 99.0 67 16 126/71 (89) 96 Nasal Cannula 2.50 06/10/18 11:31 Nasal Cannula 2.00 06/10/18 11:19 95 Nasal Cannula 3.00 I & O 06/11/18 07:00 Intake Total 1994 ml Output Total 904 ml Balance 1090 ml Capillary Refill : Less Than 3 SecondsLess Than 3 Seconds General Appearance: No Apparent Distress HEENT: Normal ENT Inspection Neck: Full Range of Motion, Normal Inspection Respiratory: No Accessory Muscle Use, No Respiratory Distress, Decreased Breath Sounds, Other (Congestion) Cardiovascular: Regular Rate, Rhythm, No Murmur Gastrointestinal: non tender, soft Results Lab Laboratory Tests 06/11/18 05:10 Laboratory Tests 06/10/18 09:25: Urine Color YELLOW, Urine Clarity CLEAR, Urine pH 6, Urine Specific [place] 1.015L, Urine Protein NEGATIVE, Urine Glucose (UA) NEGATIVE, Urine Ketones NEGATIVE, Urine Nitrite NEGATIVE, Urine Bilirubin NEGATIVE, Urine Urobilinogen NORMAL, Urine Leukocyte Esterase NEGATIVE, Urine RBC (Auto) NEGATIVE, Urine RBC NONE, Urine WBC RARE, Urine Squamous Epithelial Cells RARE, Urine Crystals NONE , Urine Bacteria NEGATIVE, Urine Casts NONE, Urine Mucus SMALLH, Urine Culture Indicated NO 06/11/18 05:10: White Blood Count 3.1L, Red Blood Count 2.86L, Hemoglobin 8.4L, Hematocrit 26L, Mean Corpuscular Volume 91, Mean Corpuscular Hemoglobin 29, Mean Corpuscular Hemoglobin Concent 32, Red Cell Distribution Width 14.8H, Platelet Count 185, Mean Platelet Volume 8.4, Neutrophils (%) (Auto) 53, Lymphocytes (%) (Auto) 30, Monocytes (%) (Auto) 17H, Eosinophils (%) (Auto) 0, Basophils (%) (Auto) 0, Neutrophils # (Auto) 1.6L, Lymphocytes # (Auto) 0.9L, Monocytes # (Auto) 0.5, Eosinophils # (Auto) 0.0, Basophils # (Auto) 0.0, Sodium Level 134L, Potassium Level 3.9, Chloride Level 99, Carbon Dioxide Level 26, Anion Gap 9, Blood Urea Nitrogen 10, Creatinine 0.71, Estimat Glomerular Filtration Rate > 60, BUN/ Creatinine Ratio 14, Glucose Level 171H, Calcium Level 8.5, Corrected Calcium 8.9, Total Bilirubin 0.2, Aspartate Amino Transf (AST/SGOT) 13, Alanine Aminotransferase (ALT/SGPT) 6, Alkaline Phosphatase 140H, Total Protein 6.4, Albumin 3.5 Microbiology 06/10/18 Blood Culture - Preliminary, Resulted No growth 06/10/18 Influenza Types A,B Antigen (VY) - Final, Complete Assessment/Plan Assessment/Plan Assess & Plan/Chief Complaint Pneumonia. COPD. Lung cancer. Seizures. Clinical Quality Measures Admission Status Admission Dx Right lower lobe pneumonia. Lung cancer. Metastasis to bone. Short of the air. COPD with acute exacerbation. CAD. Hypertension. Hyperlipidemia DVT/VTE Risk/Contraindication: Risk Factor Score Per Nursin RFS Level Per Nursing on Admit: 4+=Very High AMANDEEP GENAO DO Jun 11, 2018 08:24
--- NOTE | 2018-06-11 08:27 | Diagnostic Imaging Report ---
INDICATION: Shortness of air, pneumonia.. TECHNIQUE: Two view chest 8:00 a.m. CORRELATION STUDY: 06/10/2018 FINDINGS: Right IJ Ylteuj-v-Hosz catheter remains in place, tip projected over the SVC. Heart size and mediastinum stable. Vasculature appears relatively normal on followup. Bibasilar opacities are again demonstrated. On the right may be slightly improved. On the left may be slightly increased. Trace effusions suspect. Findings are superimposed on hyperinflated lung lo with chronic-appearing changes. IMPRESSION: 1. Bibasilar areas of atelectasis and/or infiltrate persisting. May be slightly improved on the right but slightly increased on the left. Findings appear to be superimposed on chronic changes of the lungs. Dictated by: Dictated on workstation # [id number]
[2018-06-11 12:00] VITALS: BP 104/61
--- NOTE | 2018-06-11 14:39 | NUR ---
Pt lives with his Significant Other and has 40 hours a week in home care. Pt has limited resources and will assist with groceries and any other continued care needs.
[2018-06-11 15:47] VITALS: BP 100/63
--- NOTE | 2018-06-11 15:54 | Pulmonary Progress Note ---
Subjective Time Seen by a Provider: 10:13 Subjective/Events-last exam NO complications note. Pt feels improved. Sepsis Event Evaluation Height, Weight, BMI Height: 6'0.00" Weight: 156lbs. 0.0oz. 70.939579vq; 21.2 BMI Method:Stated Focused Exam Lactate Level 06/10/18 03:42: Lactic Acid Level 1.24 Exam Exam Vital Signs Date Time Temp Pulse Resp B/P (MAP) Pulse Ox O2 Delivery O2 Flow Rate FiO2 06/11/18 15:47 98.6 62 18 100/63 (75) 98 Nasal Cannula 3.00 06/11/18 13:55 95 Nasal Cannula 3.00 06/11/18 13:00 74 06/11/18 12:00 97.8 61 18 104/61 (75) 97 Nasal Cannula 1.50 06/11/18 10:42 96 Nasal Cannula 3.00 06/11/18 08:00 Nasal Cannula 1.50 06/11/18 08:00 98.4 85 18 106/55 (72) 95 Nasal Cannula 1.50 06/11/18 06:29 92 Nasal Cannula 3.00 06/11/18 06:28 92 Nasal Cannula 3.00 06/11/18 06:27 92 Nasal Cannula 3.00 06/11/18 04:22 97.7 65 16 118/58 (78) 97 Nasal Cannula 1.50 06/11/18 01:54 91 Nasal Cannula 2.00 06/11/18 01:00 59 06/11/18 00:00 98.4 65 16 134/68 (90) 97 Nasal Cannula 2.00 06/10/18 21:44 97 Nasal Cannula 1.50 06/10/18 21:38 95 Nasal Cannula 2.00 06/10/18 20:11 98.5 66 18 139/63 (88) 97 Nasal Cannula 2.00 06/10/18 20:00 Nasal Cannula 2.00 06/10/18 19:00 69 06/10/18 16:50 98.0 65 18 157/80 (105) 98 Nasal Cannula 2.00 I & O 06/11/18 07:00 Intake Total 1994 ml Output Total 904 ml Balance 1090 ml Height & Weight Height: 6'0.00" Weight: 156lbs. 0.0oz. 70.600072rt; 21.2 BMI Method:Stated General Appearance: No Apparent Distress HEENT: Normal ENT Inspection Neck: Full Range of Motion, Normal Inspection Respiratory: No Accessory Muscle Use, No Respiratory Distress, Decreased Breath Sounds, Other (Congestion) Cardiovascular: Regular Rate, Rhythm, No Murmur Capillary Refill: Less Than 3 Seconds Gastrointestinal: non tender, soft Results Lab Laboratory Tests 06/10/18 03:42 06/11/18 05:10 Assessment/Plan Assessment/Plan Right sided Pneumonia with hypoxia and atelectasis -Zosyn -IS CXR reviewed left Metastatic lung cancer to left femur -undergoing chemotherapy Seizures hx -Seizure precautions -Home meds Anemia -Monitor RANI PACHECO DO Jun 11, 2018 15:54
[2018-06-11 19:56] VITALS: BP 110/56
[2018-06-11] MEDS: GABAPENTIN 300 MG (NEURONTIN) CAP PO SCH (22:30)
[2018-06-12 00:05] VITALS: BP 111/66
[2018-06-12] MEDS: RT-ALBUTEROL/IPRATROPIUM 3 ML (DUONEB) VIAL INH SCH ×6 (01:16→22:29)
[2018-06-12] MEDS: lisINopril 20 MG (PRINIVIL) TABLET PO SCH (03:46)
[2018-06-12] MEDS: lamoTRIgine 25 MG (LaMICtal) TAB PO SCH ×2 (03:46→15:56)
[2018-06-12] MEDS: carBAMazepine 200 MG (TEGretol) TAB PO SCH ×4 (03:46→23:53)
[2018-06-12] MEDS: ATORVASTATIN 10 MG (LIPITOR) TABLET PO SCH (03:46)
[2018-06-12] MEDS: cefTRIAXone FOR IV USE 1,000 MG in WATER (STERILE) FOR INJECTION 10 ML IV SCH (03:53)
[2018-06-12 04:10] VITALS: BP 143/69
[2018-06-12] MEDS: predniSONE 20 MG TAB PO SCH (06:09)
[2018-06-12 06:14] LABS: HEMOGLOBIN 8.5 G/DL (13.3-17.7); MEAN PLATELET VOLUME 8.1 FL (7.4-10.4); RED CELL DISTRIBUTION WIDTH 14.9 % (10.0-14.5)
[2018-06-12 06:34] LABS: ALANINE AMINOTRANSFERASE 11 U/L (0-55); ALBUMIN 3.5 GM/DL (3.2-4.5); ALKALINE PHOSPHATASE 139 U/L (40-136); BILIRUBIN,TOTAL 0.2 MG/DL (0.1-1.0); BUN/CREATININE RATIO 13; CALCIUM 8.6 MG/DL (8.5-10.1); CARBON DIOXIDE 28 MMOL/L (21-32); CHLORIDE 97 MMOL/L (98-107); CREATININE SERUM 0.71 MG/DL (0.60-1.30); GFR ESTIMATED > 60; GLUCOSE 97 MG/DL (70-105); POTASSIUM 4.1 MMOL/L (3.6-5.0); SODIUM 133 MMOL/L (135-145); TOTAL PROTEIN 6.3 GM/DL (6.4-8.2)
[2018-06-12 08:00] VITALS: BP 102/58
[2018-06-12] MEDS: RT-ADVAIR HFA 115/21 MCG PER PUFF IH SCH ×2 (08:11→18:47)
[2018-06-12] MEDS: UMECLIDINIUM BROMIDE (INCRUSE ELLIPTA) 7'S IH SCH (08:11)
[2018-06-12] MEDS: GABAPENTIN 600 MG (NEURONTIN) TAB PO SCH ×2 (08:31→15:56)
[2018-06-12] MEDS: amLODIPine 5 MG (NORVASC) TAB PO SCH (08:31)
[2018-06-12] MEDS: MELOXICAM 7.5 MG (MOBIC) TABLET PO SCH (08:31)
[2018-06-12] MEDS: ENOXAPARIN 40 MG/0.4 ML (LOVENOX) SYR SC SCH (08:31)
[2018-06-12] MEDS: AZITHROMYCIN 250 MG TAB (ZITHROMAX) PO SCH (08:31)
[2018-06-12] MEDS: PHENYTOIN 100 MG (DILANTIN) CAP PO SCH ×3 (08:32→23:53)
--- NOTE | 2018-06-12 08:39 | Progress Note (SOAP) ---
Subjective Time Seen by a Provider: 08:36 Subjective/Events-last exam Patient states he is breathing better. Patient states she's coughing but not bringing anything up. Plan to discharge tomorrow. Lung cancer. Pneumonia. COPD. Receiving chemotherapy low white blood cell count Focused Exam Lactate Level 06/10/18 03:42: Lactic Acid Level 1.24 Objective Exam Vital Signs Date Time Temp Pulse Resp B/P (MAP) Pulse Ox O2 Delivery O2 Flow Rate FiO2 06/12/18 08:09 94 Nasal Cannula 3.00 06/12/18 04:10 96.9 70 20 143/69 (93) 96 Nasal Cannula 3.00 06/12/18 01:16 98 Nasal Cannula 3.00 06/12/18 00:05 97.5 64 18 111/66 (81) 97 3.00 06/11/18 21:16 96 Nasal Cannula 3.00 06/11/18 20:00 Nasal Cannula 1.50 06/11/18 19:56 98.6 62 20 110/56 (74) 96 Nasal Cannula 3.00 06/11/18 19:14 65 06/11/18 19:03 Nasal Cannula 3.00 06/11/18 18:56 96 Nasal Cannula 3.00 06/11/18 15:47 98.6 62 18 100/63 (75) 98 Nasal Cannula 3.00 06/11/18 13:55 95 Nasal Cannula 3.00 06/11/18 13:00 74 06/11/18 12:00 97.8 61 18 104/61 (75) 97 Nasal Cannula 1.50 06/11/18 10:42 96 Nasal Cannula 3.00 I & O 06/12/18 07:00 Intake Total 1960 ml Output Total 980 ml Balance 980 ml Capillary Refill : Less Than 3 SecondsLess Than 3 Seconds General Appearance: No Apparent Distress, Thin HEENT: Normal ENT Inspection Respiratory: No Accessory Muscle Use, Decreased Breath Sounds Cardiovascular: Regular Rate, Rhythm, No Murmur Gastrointestinal: non tender, soft Results Lab Laboratory Tests 06/12/18 05:35 Laboratory Tests 06/12/18 05:35: White Blood Count 3.0L, Red Blood Count 2.87L, Hemoglobin 8.5L, Hematocrit 26L, Mean Corpuscular Volume 91, Mean Corpuscular Hemoglobin 30, Mean Corpuscular Hemoglobin Concent 33, Red Cell Distribution Width 14.9H, Platelet Count 217, Mean Platelet Volume 8.1, Sodium Level 133L, Potassium Level 4.1, Chloride Level 97L, Carbon Dioxide Level 28, Anion Gap 8, Blood Urea Nitrogen 9, Creatinine 0.71, Estimat Glomerular Filtration Rate > 60, BUN/Creatinine Ratio 13, Glucose Level 97, Calcium Level 8.6, Corrected Calcium 9.0, Total Bilirubin 0.2, Aspartate Amino Transf (AST/SGOT) 15, Alanine Aminotransferase (ALT/SGPT) 11, Alkaline Phosphatase 139H, Total Protein 6.3L, Albumin 3.5 Microbiology 06/10/18 Blood Culture - Preliminary, Resulted No growth 06/10/18 Influenza Types A,B Antigen (VY) - Final, Complete 06/10/18 Urine Culture - Final, Complete NO GROWTH Assessment/Plan Assessment/Plan Assess & Plan/Chief Complaint Pneumonia. COPD. Lung cancer. Seizures.. . 06/12/18. Pneumonia. COPD. Lung cancer. Leukopenia due to chemotherapy. Seizures. Patient improving plan to discharge tomorrow Clinical Quality Measures Admission Status Admission Dx Right lower lobe pneumonia. Lung cancer. Metastasis to bone. Short of the air. COPD with acute exacerbation. CAD. Hypertension. Hyperlipidemia DVT/VTE Risk/Contraindication: Risk Factor Score Per Nursin RFS Level Per Nursing on Admit: 4+=Very High AMANDEEP GENAO DO Jun 12, 2018 08:39
--- NOTE | 2018-06-12 09:47 | Diagnostic Imaging Report ---
INDICATION: COPD, pneumonia lung cancer. TIME OF EXAM: 9:01 AM Correlation is made with prior chest from 06/11/2018. FINDINGS: The heart size is stable. Right chest wall port has tip overlying the SVC. Basilar parenchymal densities similar to the examination one day earlier. Mid and upper lung lo are clear. No significant effusion or pneumothorax is seen. IMPRESSION: Continued basilar infiltrates or atelectasis, similar to examination one day earlier. Dictated by: Dictated on workstation # [id number]
--- NOTE | 2018-06-12 10:15 | Pulmonary Progress Note ---
Subjective Time Seen by a Provider: 10:15 Subjective/Events-last exam Pt is doing better. Sepsis Event Evaluation Height, Weight, BMI Height: 6'0.00" Weight: 156lbs. 0.0oz. 70.112944yv; 21.2 BMI Method:Stated Focused Exam Lactate Level 06/10/18 03:42: Lactic Acid Level 1.24 Exam Exam Vital Signs Date Time Temp Pulse Resp B/P (MAP) Pulse Ox O2 Delivery O2 Flow Rate FiO2 06/12/18 08:09 94 Nasal Cannula 3.00 06/12/18 08:00 Nasal Cannula 1.50 06/12/18 08:00 98.0 61 18 102/58 (73) 97 Nasal Cannula 1.50 06/12/18 04:10 96.9 70 20 143/69 (93) 96 Nasal Cannula 3.00 06/12/18 01:16 98 Nasal Cannula 3.00 06/12/18 00:05 97.5 64 18 111/66 (81) 97 3.00 06/11/18 21:16 96 Nasal Cannula 3.00 06/11/18 20:00 Nasal Cannula 1.50 06/11/18 19:56 98.6 62 20 110/56 (74) 96 Nasal Cannula 3.00 06/11/18 19:14 65 06/11/18 19:03 Nasal Cannula 3.00 06/11/18 18:56 96 Nasal Cannula 3.00 06/11/18 15:47 98.6 62 18 100/63 (75) 98 Nasal Cannula 3.00 06/11/18 13:55 95 Nasal Cannula 3.00 06/11/18 13:00 74 06/11/18 12:00 97.8 61 18 104/61 (75) 97 Nasal Cannula 1.50 06/11/18 10:42 96 Nasal Cannula 3.00 I & O 06/12/18 07:00 Intake Total 1960 ml Output Total 980 ml Balance 980 ml Height & Weight Height: 6'0.00" Weight: 156lbs. 0.0oz. 70.389959xc; 21.2 BMI Method:Stated General Appearance: No Apparent Distress HEENT: Normal ENT Inspection Neck: Full Range of Motion, Normal Inspection Respiratory: No Accessory Muscle Use, No Respiratory Distress, Decreased Breath Sounds, Other (Congestion) Cardiovascular: Regular Rate, Rhythm, No Murmur Capillary Refill: Less Than 3 Seconds Gastrointestinal: non tender, soft Results Lab Laboratory Tests 06/11/18 05:10 06/12/18 05:35 Assessment/Plan Assessment/Plan Right sided Pneumonia with hypoxia and atelectasis -Repeat CXR as out patient -Zosyn -IS left Metastatic lung cancer to left femur -undergoing chemotherapy Seizures hx -Seizure precautions -Home meds Anemia -Monitor From pulmonary standpoint pt is ok for discharge. I will have him f/u with me in 2-3 wks. RANI PACHECO DO Jun 12, 2018 10:15
[2018-06-12 12:00] VITALS: BP 116/66
--- NOTE | 2018-06-12 15:17 | NUR ---
Message left at Dr Schwartz office for follow up appt. Waiting for return call
[2018-06-12 15:34] VITALS: BP 108/55
[2018-06-12 20:25] VITALS: BP 103/55
[2018-06-12] MEDS: GABAPENTIN 300 MG (NEURONTIN) CAP PO SCH (23:53)
[2018-06-13] VITALS: BP 112/62
[2018-06-13] MEDS: RT-ALBUTEROL/IPRATROPIUM 3 ML (DUONEB) VIAL INH SCH ×4 (01:08→14:23)
[2018-06-13] MEDS: lamoTRIgine 25 MG (LaMICtal) TAB PO SCH ×2 (03:27→14:36)
[2018-06-13] MEDS: carBAMazepine 200 MG (TEGretol) TAB PO SCH ×3 (03:27→14:36)
[2018-06-13] MEDS: lisINopril 20 MG (PRINIVIL) TABLET PO SCH (03:27)
[2018-06-13] MEDS: ATORVASTATIN 10 MG (LIPITOR) TABLET PO SCH (03:27)
[2018-06-13] MEDS: cefTRIAXone FOR IV USE 1,000 MG in WATER (STERILE) FOR INJECTION 10 ML IV SCH (03:55)
[2018-06-13 04:00] VITALS: BP 118/61
[2018-06-13 05:43] LABS: BASOPHILS % (AUTO) 0 % (0-10); EOSINOPHILS % (AUTO) 0 % (0-10); HEMATOCRIT 26 % (40-54); HEMOGLOBIN 8.4 G/DL (13.3-17.7); LYMPHOCYTES % (AUTO) 28 % (12-44); MEAN CORPUSCULAR HGB CONC 32 G/DL (32-36); MEAN CORPUSCULAR VOLUME 91 FL (80-99); MEAN PLATELET VOLUME 8.1 FL (7.4-10.4); MONOCYTES # (AUTO) 0.7 X 10^3 (0.0-1.0); MONOCYTES % (AUTO) 20 % (0-12); NEUTROPHILS # (AUTO) 1.9 X 10^3 (1.8-7.8); NEUTROPHILS % (AUTO) 52 % (42-75); PLATELET COUNT 215 10^3/uL (130-400); RED CELL DISTRIBUTION WIDTH 14.9 % (10.0-14.5); WHITE BLOOD COUNT 3.6 10^3/uL (4.3-11.0)
[2018-06-13 05:52] LABS: MEAN CORPUSCULAR HEMOGLOBIN 29 PG (25-34)
[2018-06-13 06:04] LABS: BUN/CREATININE RATIO 18; CALCIUM 8.3 MG/DL (8.5-10.1); CARBON DIOXIDE 26 MMOL/L (21-32); CHLORIDE 96 MMOL/L (98-107); CREATININE SERUM 0.71 MG/DL (0.60-1.30); GFR ESTIMATED > 60; GLUCOSE 97 MG/DL (70-105); POTASSIUM 4.2 MMOL/L (3.6-5.0); SODIUM 130 MMOL/L (135-145)
[2018-06-13 06:25] LABS: LYMPHOCYTES % (MANUAL) 27 %; MONOCYTES % (MANUAL) 15 %; NEUTROPHILS % (MANUAL) 58 %
[2018-06-13] MEDS: UMECLIDINIUM BROMIDE (INCRUSE ELLIPTA) 7'S IH SCH (06:42)
[2018-06-13] MEDS: RT-ADVAIR HFA 115/21 MCG PER PUFF IH SCH (06:43)
[2018-06-13] MEDS: predniSONE 20 MG TAB PO SCH (07:02)
[2018-06-13 07:32] VITALS: BP 100/55
--- NOTE | 2018-06-13 08:55 | Pulmonary Progress Note ---
Subjective Time Seen by a Provider: 08:54 Subjective/Events-last exam No complications noted. Sepsis Event Evaluation Height, Weight, BMI Height: 6'0.00" Weight: 156lbs. 0.0oz. 70.882071cz; 21.2 BMI Method:Stated Exam Exam Vital Signs Date Time Temp Pulse Resp B/P (MAP) Pulse Ox O2 Delivery O2 Flow Rate FiO2 06/13/18 07:32 97.6 69 24 100/55 (70) 95 Nasal Cannula 3.00 06/13/18 06:43 94 Nasal Cannula 3.00 06/13/18 04:00 98.0 64 20 118/61 (80) 95 Nasal Cannula 2.00 06/13/18 01:08 94 Nasal Cannula 3.00 06/13/18 00:00 97.6 70 20 112/62 (79) 97 Nasal Cannula 06/12/18 22:29 97 Nasal Cannula 3.00 06/12/18 20:25 97.6 76 18 103/55 (71) 96 Nasal Cannula 06/12/18 20:25 Nasal Cannula 06/12/18 18:47 95 Nasal Cannula 3.00 06/12/18 15:34 98.4 74 18 108/55 (72) 97 Nasal Cannula 1.50 06/12/18 14:59 94 Nasal Cannula 3.00 06/12/18 12:00 93 Nasal Cannula 3.00 06/12/18 12:00 96.6 59 20 116/66 (83) 98 Nasal Cannula 1.50 I & O 06/13/18 07:00 Intake Total 2300 ml Balance 2300 ml Height & Weight Height: 6'0.00" Weight: 156lbs. 0.0oz. 70.391071ba; 21.2 BMI Method:Stated General Appearance: No Apparent Distress HEENT: Normal ENT Inspection Neck: Full Range of Motion, Normal Inspection Respiratory: No Accessory Muscle Use, No Respiratory Distress, Decreased Breath Sounds, Other (Congestion) Cardiovascular: Regular Rate, Rhythm, No Murmur Capillary Refill: Less Than 3 Seconds Gastrointestinal: non tender, soft Results Lab Laboratory Tests 06/12/18 05:35 06/13/18 04:58 Assessment/Plan Assessment/Plan Right sided Pneumonia with hypoxia and atelectasis -Repeat CXR as out patient -Zosyn -- change to Omnicef x 5 more days -IS -Prednisone taper left Metastatic lung cancer to left femur -undergoing chemotherapy Seizures hx -Seizure precautions -Home meds Anemia -Monitor From pulmonary standpoint pt is ok for discharge. I will have him f/u with me in 2-3 wks. RANI PACHECO DO Jun 13, 2018 08:54
[2018-06-13] MEDS ORDERED: CEFDINIR 300 MG (OMNICEF) CAP PO SCH (09:00)
--- NOTE | 2018-06-13 09:09 | Diagnostic Imaging Report ---
EXAM: CHEST PA/LAT (2 VIEW) INDICATION: Cough. Shortness of air. COMPARISON: Chest radiograph 06/12/2018. FINDINGS: Stable interstitial and airspace opacities in the lung bases. No pleural effusion or pneumothorax. Normal heart size and central pulmonary vascularity. Right IJ tunneled port CVC tip low SVC. IMPRESSION: Stable bibasilar atelectasis or infiltrate. No new cardiopulmonary findings. Dictated by: Dictated on workstation # [id number]
[2018-06-13] MEDS: MELOXICAM 7.5 MG (MOBIC) TABLET PO SCH (09:24)
[2018-06-13] MEDS: AZITHROMYCIN 250 MG TAB (ZITHROMAX) PO SCH (09:25)
[2018-06-13] MEDS: GABAPENTIN 600 MG (NEURONTIN) TAB PO SCH ×2 (09:26→14:18)
[2018-06-13] MEDS: PHENYTOIN 100 MG (DILANTIN) CAP PO SCH ×2 (09:26→14:19)
[2018-06-13] MEDS: amLODIPine 5 MG (NORVASC) TAB PO SCH (09:26)
[2018-06-13] MEDS: ENOXAPARIN 40 MG/0.4 ML (LOVENOX) SYR SC SCH (09:27)
[2018-06-13 10:46] VITALS: BP 100/55
[2018-06-13 11:44] VITALS: BP 126/60
[2018-06-13] MEDS ORDERED: PRED10TA22 PO (12:51)
[2018-06-13] MEDS ORDERED: CEFD300C3 PO (12:51)
--- NOTE | 2018-06-13 12:53 | Discharge Summary-Hospitalist ---
Diagnosis/Chief Complaint Date of Admission Jun 10, 2018 at 04:35 Date of Discharge Discharge Date: Jun 13, 2018 Discharge Diagnosis (1) RLL pneumonia Status: Acute (2) Lung cancer metastatic to bone Status: Chronic (3) COPD exacerbation Status: Acute (4) Hypoxia Status: Chronic (5) Hx of seizure disorder Status: Acute Discharge Summary Discharge Physical Exam Allergies: Coded Allergies: aspirin (Unverified Allergy, Mild, DOES NOT WORK WELL W/ OTHER MEDS, 03/09) ibuprofen (Unverified Allergy, Mild, 03/09/18) Vitals & I&Os Vital Signs Date Time Temp Pulse Resp B/P (MAP) Pulse Ox O2 Delivery O2 Flow Rate FiO2 06/13/18 11:44 98.4 68 22 126/60 (82) 96 Nasal Cannula 3.00 06/13/18 10:46 32 General Appearance: No Apparent Distress, WD/WN, Chronically ill, Thin Respiratory: Chest Non Tender, No Accessory Muscle Use, No Respiratory Distress , Crackles, Wheezing Neurologic/Psychiatric: Alert, Oriented x3, No Motor/Sensory Deficits, Normal Mood/Affect Hospital Course Was the Problem List Reviewed?: Yes Hospital course: patient had a standard hospital course after he was admitted from the ER for recurrent pneumonia so placed on abx and steroids and Pulmonary consultation ensued. Patient was maintained on O2 and Nebs and home meds and rapidly improved and was able to be DC in improved condition but poor prognosis remains due to lung cancer and mets and O2 dependent. Labs (last 24 hrs) Laboratory Tests 06/13/18 04:58: White Blood Count 3.6L, Red Blood Count 2.85L, Hemoglobin 8.4L, Hematocrit 26L, Mean Corpuscular Volume 91, Mean Corpuscular Hemoglobin 29, Mean Corpuscular Hemoglobin Concent 32, Red Cell Distribution Width 14.9H, Platelet Count 215, Mean Platelet Volume 8.1, Neutrophils (%) (Auto) 52, Lymphocytes (%) (Auto) 28, Monocytes (%) (Auto) 20H, Eosinophils (%) (Auto) 0, Basophils (%) (Auto) 0, Neutrophils # (Auto) 1.9, Lymphocytes # (Auto) 1.0, Monocytes # (Auto) 0.7, Eosinophils # (Auto) 0.0, Basophils # (Auto) 0.0, Neutrophils % (Manual) 58, Lymphocytes % (Manual) 27, Monocytes % (Manual) 15, Sodium Level 130L, Potassium Level 4.2, Chloride Level 96L, Carbon Dioxide Level 26, Anion Gap 8, Blood Urea Nitrogen 13, Creatinine 0.71, Estimat Glomerular Filtration Rate > 60 , BUN/Creatinine Ratio 18, Glucose Level 97, Calcium Level 8.3L Microbiology 06/10/18 Blood Culture - Preliminary, Resulted No growth 06/10/18 Influenza Types A,B Antigen (VY) - Final, Complete 06/10/18 Urine Culture - Final, Complete NO GROWTH Patient resulted labs reviewed. Pending Labs Discussion & Recommendations Discharge Planning: <30 minutes discharge planning Discharge Home Medications: Active Scripts Active Prednisone 10 Mg Tab.ds.pk 10 Mg PO DAILY Take 6 tabs(60mg)daily,decrease by 1 tab(10MG)daily. Cefdinir 300 Mg Capsule 300 Mg PO BID Cefdinir 300 Mg Capsule 300 Mg PO BID 5 Days Reported Meloxicam 7.5 Mg Tablet 7.5 Mg PO DAILY Ondansetron Odt (Ondansetron) 4 Mg Tab.rapdis 4 Mg PO TID PRN Omeprazole 20 Mg Capsule.dr 20 Mg PO DAILY PRN Advair Hfa 115-21 Mcg Inhaler (Fluticasone/Salmeterol) 12 Gm Hfa.aer.ad 2 Puff INH BID Levofloxacin 500 Mg Tablet 500 Mg PO MOWEFR Hydrocodone-Acetamin 5-325 mg (Hydrocodone/Acetaminophen) 1 Each Tablet 1 Tab PO Q6H PRN Atorvastatin Calcium 10 Mg Tablet 10 Mg PO 0300 Carbamazepine 200 Mg Tablet 400 Mg PO 1500 TAKES 2 (200 MG) TABLETS Amlodipine Besylate 5 Mg Tablet 5 Mg PO 0800 Lamotrigine 25 Mg Tablet 25 Mg PO 1500,0300 Lisinopril 20 Mg Tablet 20 Mg PO 0300 Proair Hfa (Albuterol Sulfate) 1 Puff Puff 2 Puff IH Q6H PRN 1 PUFF = 90 MCG Spiriva (Tiotropium [place]) 1 Inh Aerp 1 Cap IH DAILY Albuterol Sulfate 2.5 Mg/3 Ml Vial.neb 2.5 Mg NEB 5XD PRN Tegretol (Carbamazepine) 200 Mg Tablet 200 Mg PO 0800,2300,0300 Phenytoin Sodium Extended 100 Mg Capsule 100 Mg PO 2300 Phenytoin Sodium Extended 100 Mg Capsule 200 Mg PO 0800,1500 TAKES 2 (100 MG) CAPSULES Gabapentin 600 Mg Tablet 600 Mg PO 0800,1500 Gabapentin 300 Mg Capsule 300 Mg PO 2300 Lamotrigine 100 Mg Tablet 100 Mg PO 1500,2300 Instructions to patient/family Please see electronic discharge instructions given to patient. Clinical Quality Measures DVT/VTE Risk/Contraindication: Risk Factor Score Per Nursin RFS Level Per Nursing on Admit: 4+=Very High Problem Qualifiers (1) RLL pneumonia: Pneumonia type: due to unspecified organism Qualified Codes: J18.1 - Lobar pneumonia, unspecified organism JAMIR ELLISON DO Jun 13, 2018 12:52
--- NOTE | 2018-06-13 15:11 | NUR ---
Provided verbal & printed Discharge instructions to pt, per Dr. Swenson. Pt states that he has everything set up at home; his 02, & "wants to get home to his big plasma tv." IV dc'd, no bleeding. Instructed pt to turn customer resolution specialist lt when his ride got here. Pt verbalizes understanding. Pt has his own portable 02 here to go home with.
[2018-06-13 15:30] VITALS: BP 126/60
== END 2018-06-13 15:30 | disposition home or self-care (01) | DRG 190 ==
LOC: EDUNIT# 03:20 → ER 03:22 → 4TH 04:35
PROVIDERS: ADMIT Family Medicine; ATTEND Family Medicine
DX: J44.0 Chronic obstructive pulmonary disease with (acute) lower respiratory infection (principal); J18.1 Lobar pneumonia, unspecified organism; J44.1 Chronic obstructive pulmonary disease with (acute) exacerbation; C34.92 Malignant neoplasm of unspecified part of left bronchus or lung; C79.51 Secondary malignant neoplasm of bone; J98.11 Atelectasis; R09.02 Hypoxemia; D70.1 Agranulocytosis secondary to cancer chemotherapy; T45.1X5A Adverse effect of antineoplastic and immunosuppressive drugs, initial encounter; D64.9 Anemia, unspecified; G40.909 Epilepsy, unspecified, not intractable, without status epilepticus; E78.5 Hyperlipidemia, unspecified; I10 Essential (primary) hypertension; I25.10 Atherosclerotic heart disease of native coronary artery without angina pectoris; G62.9 Polyneuropathy, unspecified; G14 Postpolio syndrome; M19.91 Primary osteoarthritis, unspecified site; G47.30 Sleep apnea, unspecified; Z99.81 Dependence on supplemental oxygen; Z87.891 Personal history of nicotine dependence
CPT/HCPCS: 36415; 71045; 71046; 80048; 80053; 81000; 83605; 83880; 84145; 84484; 85007; 85025; 85027; 85610; 85730; 87040; 87088; 87804; 93005; 94640; 94664; 94760; 96374; 96375

== ENCOUNTER → 2018-06-22 | Outpatient (CLI) | payer MEDICAID ==
[~2018-06-22] MED LIST changes: +HYDR-3816 PO; +MELO7.5T46 PO
--- NOTE | 2018-06-22 16:13 | Diagnostic Imaging Report ---
INDICATION: Left neck injury from a fall EXAM: PA and lateral chest FINDINGS: Right IJ Port-A-Cath tip projects over the SVC. There is atelectasis at the right lung base. There is no effusion or pneumothorax. There are no displaced rib fractures seen. IMPRESSION: Right basilar atelectasis. Dictated by: Dictated on workstation # [id number]
--- NOTE | 2018-06-22 16:30 | Diagnostic Imaging Report ---
INDICATION: History of C2 fracture. Fall. COMPARISON: CTA neck dated 03/16/2018 EXAM / TECHNIQUE: Frontal, lateral, and open-mouth views of the cervical spine were obtained. COMPARISON: 03/16/2018. FINDINGS: There is a nonacute type III fracture involving the dens of C2. There is redemonstration of mild displacement of the fracture fragments. There is also mild asymmetric narrowing of the distance between the lateral mass of C1 and the dens of C2 on the open mouth view. There however was present on prior CT as well. Evaluation of the remainder of the cervical spine shows mild grade 1 anterolisthesis at C3-C4 and reversal of normal lordotic curvature of the lower cervical spine. There is no evidence of jumped facets. Vertebral body heights are otherwise maintained. There are advanced multilevel degenerative changes. Surrounding soft tissue structures are unremarkable. Included portions lung apices are clear. IMPRESSION: 1. Redemonstration of previously described C2 fracture. 2. No new acute fracture or dislocation of the lumbar spine. 3. Derangement of normal static alignment as described above with moderate multilevel degenerative changes. Dictated by: Dictated on workstation # [id number]
== END ==
LOC: RAD 14:51
PROVIDERS: ATTEND Nurse Practitioner Adult Health
DX: S12.190A Other displaced fracture of second cervical vertebra, initial encounter for closed fracture (principal); J98.11 Atelectasis; M43.12 Spondylolisthesis, cervical region; M47.812 Spondylosis without myelopathy or radiculopathy, cervical region; W19.XXXA Unspecified fall, initial encounter; Z95.828 Presence of other vascular implants and grafts
CPT/HCPCS: 71046; 72040

== ENCOUNTER 2018-06-24 19:02 | Inpatient (IN) | payer MEDICAID ==
[~2018-06-24] VITALS: Ht 182.9 cm; Wt 70.8 kg
[~2018-06-24 19:02] MED LIST changes: -HYDR-3816 PO
[2018-06-24 19:16] LABS: BASOPHILS % (AUTO) 0 % (0-10); EOSINOPHILS % (AUTO) 0 % (0-10); HEMATOCRIT 31 % (40-54); LYMPHOCYTES # (AUTO) 1.1 X 10^3 (1.0-4.0); LYMPHOCYTES % (AUTO) 30 % (12-44); MEAN CORPUSCULAR HEMOGLOBIN 30 PG (25-34); MEAN CORPUSCULAR HGB CONC 33 G/DL (32-36); MEAN CORPUSCULAR VOLUME 91 FL (80-99); MEAN PLATELET VOLUME 8.5 FL (7.4-10.4); MONOCYTES # (AUTO) 0.7 X 10^3 (0.0-1.0); MONOCYTES % (AUTO) 19 % (0-12); NEUTROPHILS # (AUTO) 1.8 X 10^3 (1.8-7.8); NEUTROPHILS % (AUTO) 50 % (42-75); PLATELET COUNT 214 10^3/uL (130-400); RED CELL DISTRIBUTION WIDTH 14.4 % (10.0-14.5); WHITE BLOOD COUNT 3.6 10^3/uL (4.3-11.0)
[2018-06-24] MEDS ORDERED: NS IV 500 ML 500 ML IV ONE (19:16)
[2018-06-24 19:23] LABS: BILIRUBIN,URINE NEGATIVE (NEGATIVE); CLARITY,URINE CLEAR; GLUCOSE, URINE (UA) NEGATIVE (NEGATIVE); KETONES,URINE NEGATIVE (NEGATIVE); LEUKOCYTE ESTERASE ,URINE 1+ (NEGATIVE); NITRITE,URINE NEGATIVE (NEGATIVE); PH,URINE 6.5 (5-9); PROTEIN,URINE 1+ (NEGATIVE); UROBILINOGEN,URINE NORMAL (NORMAL)
[2018-06-24 19:34] LABS: FIBRIN DEGRADATION PRODUCTS 0.51 UG/ML (0.00-0.49); PROTHROMBIN TIME PATIENT 13.3 SEC (12.2-14.7)
[2018-06-24 19:36] LABS: RBC,URINE RARE /HPF
[2018-06-24 19:37] LABS: BACTERIA,URINE NEGATIVE /HPF; COLOR,URINE YELLOW; WBC,URINE 0-2 /HPF
[2018-06-24 19:42] LABS: ALANINE AMINOTRANSFERASE 9 U/L (0-55); ALKALINE PHOSPHATASE 148 U/L (40-136); BILIRUBIN,TOTAL 0.2 MG/DL (0.1-1.0); BUN/CREATININE RATIO 14; CALCIUM 8.6 MG/DL (8.5-10.1); CARBON DIOXIDE 23 MMOL/L (21-32); CHLORIDE 99 MMOL/L (98-107); CREATININE SERUM 0.79 MG/DL (0.60-1.30); GFR ESTIMATED > 60; GLUCOSE 102 MG/DL (70-105); POTASSIUM 4.6 MMOL/L (3.6-5.0); SODIUM 135 MMOL/L (135-145)
[2018-06-24 19:43] LABS: BAND NEUTROPHILS 0 %; BASOPHILS % (MANUAL) 0 %; EOSINOPHILS % (MANUAL) 0 %; HYPOCHROMASIA SLIGHT; LYMPHOCYTES % (MANUAL) 28 %; MONOCYTES % (MANUAL) 12 %; NEUTROPHILS % (MANUAL) 60 %
--- NOTE | 2018-06-24 19:43 | ED General ---
General Chief Complaint: Altered Mental Status Stated Complaint: SOA Nursing Triage Note: PT BROUGHT IN BY EMS WITH COMPLAINT OF ALTERED MENTAL STATUS. PER CAREGIVER, PT STARTED SLURRING HIS WORDS AND DROOLING AROUND 6 PM. STATES PT BECAME AGGITATED AND COULD NOT BE UNDERSTOOD. PT HAS DIFFICULTY FOLLOWING COMMANDS. UNABLE TO PERFORM NIH. PT HAS HX OF COPD AND LUNG CANCER. Nursing Sepsis Screen: No Definite Risk Source of Information: Patient Exam Limitations: No Limitations History of Present Illness Date Seen by Provider: Jun 24, 2018 Time Seen by Provider: 19:02 Initial Comments Here with report of change in mental status. Apparently he has had some vision problems over the last couple of days and feeling weaker but today he started getting confused at about 6 PM which was acutely worse per her caregiver. There is some confusion related to this though. Does have a history of lung cancer and is under chemotherapy also has history of COPD. Patient only complains of dryness of the mouth. Did have x-ray on Friday for chest and neck. Also had some basic labs. Patient denies nausea or vomiting. Does have slurred speech and is acting different than typical. Frequently has pneumonia. Timing/Duration: 2-3 Days, Getting Worse Severity: Moderate Associated Systoms: Cough; No Fever/Chills, No Headaches, No Nausea/Vomiting; Shortness of Air, Weakness Allergies and Home Medications Allergies Coded Allergies: aspirin (Unverified Allergy, Mild, DOES NOT WORK WELL W/ OTHER MEDS, 03/09) ibuprofen (Unverified Allergy, Mild, 03/09/18) Home Medications Albuterol Sulfate 2.5 Mg/3 Ml Vial.neb, 2.5 MG NEB 5XD PRN for SHORTNESS OF BREATH, (Reported) Albuterol Sulfate 1 Puff Puff, 2 PUFF IH Q6H PRN for SHORTNESS OF BREATH, ( Reported) 1 PUFF = 90 MCG Amlodipine Besylate 5 Mg Tablet, 5 MG PO 0800, (Reported) Atorvastatin Calcium 10 Mg Tablet, 10 MG PO 0300, (Reported) Carbamazepine 200 Mg Tablet, 200 MG PO 0800,2300,0300, (Reported) Carbamazepine 200 Mg Tablet, 400 MG PO 1500, (Reported) TAKES 2 (200 MG) TABLETS Cefdinir 300 Mg Capsule, 300 MG PO BID Prescribed by: JAMIR ELLISON on 06/13/18 1251 Fluticasone/Salmeterol 12 Gm Hfa.aer.ad, 2 PUFF INH BID, (Reported) Gabapentin 300 Mg Capsule, 300 MG PO 2300, (Reported) Gabapentin 600 Mg Tablet, 600 MG PO 0800,1500, (Reported) Hydrocodone/Acetaminophen 1 Each Tablet, 1 TAB PO Q6H PRN for PAIN-MODERATE, ( Reported) Lamotrigine 100 Mg Tablet, 100 MG PO 1500,2300, (Reported) Lamotrigine 25 Mg Tablet, 25 MG PO 1500,0300, (Reported) Lisinopril 20 Mg Tablet, 20 MG PO 0300, (Reported) Meloxicam 7.5 Mg Tablet, 7.5 MG PO DAILY, (Reported) Omeprazole 20 Mg Capsule.dr, 20 MG PO DAILY PRN for HEARTBURN, (Reported) Ondansetron 4 Mg Tab.rapdis, 4 MG PO TID PRN for NAUSEA/VOMITING-1ST LINE, ( Reported) Phenytoin Sodium Extended 100 Mg Capsule, 200 MG PO 0800,1500, (Reported) TAKES 2 (100 MG) CAPSULES Phenytoin Sodium Extended 100 Mg Capsule, 100 MG PO 2300, (Reported) Prednisone 10 Mg Tab.ds.pk, 10 MG PO DAILY Take 6 tabs(60mg)daily,decrease by 1 tab(10MG)daily. Prescribed by: JAMIR ELLISON on 06/13/18 1251 Tiotropium [place] 1 Inh Aerp, 1 CAP IH DAILY, (Reported) Patient Home Medication List Home Medication List Reviewed: Yes Review of Systems Review of Systems Constitutional: see HPI; No chills, No fever Respiratory: cough, short of breath Cardiovascular: No chest pain, No edema Gastrointestinal: no symptoms reported; No abdominal pain Genitourinary: no symptoms reported Musculoskeletal: muscle weakness (global but may have some increased left-sided ) Psychiatric/Neurological: See HPI, Weakness Unable to complete review of systems due to altered mental status Past Ussbnte-Kmtrmu-Kxhktu Hx Past Med/Social Hx: Reviewed Nursing Past Med/Soc Hx Patient Social History Alcohol Use: Denies Use Recreational Drug Use: Yes (not current, 15 years ago-ETOH and PO drugs) Drug of Choice: HX OF RX DRUG ABUSE, CLAIMS NONE 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 Smoking Status: Former Smoker Type Used: Cigars, Cigarettes Former Smoker, Quit: May 01, 2017 2nd Hand Smoke Exposure: No (quit in 2017) Recent Foreign Travel: No Contact w/Someone Who Travel: No Recent Infectious Disease Expo: No Recent Hopitalizations: Yes Immunizations Up To Date Tetanus Booster (TDap): Unknown PED Vaccines UTD: Yes Date of Influenza Vaccine: Apr 21, 2018 Seasonal Allergies Seasonal Allergies: Yes Past Medical History Surgeries: Yes (PORT RIGHT CHEST; CT GUIDED BX OF FEMUR; BILATERAL CATARACT SURGERY) Eye Surgery, Gallbladder Respiratory: Yes (METASTATIC LUNG CANCER DX 05/2017; COPD--O2 DEPENDENT ) Asthma, Pneumonia, Chronic Bronchitis, Sleep Apnea, COPD Currently Using CPAP: No Currently Using BIPAP: No Cardiac: Yes Heart Murmur, High Cholesterol, Hypertension, Valvular Heart Disease 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 ) Neuropathy, Seizure Disorder, Vertigo Reproductive Disorders: No Sexually Transmitted Disease: No HIV/AIDS: No Genitourinary: No Gastrointestinal: Yes (CHRONIC NAUSEA/VOMITING) Musculoskeletal: Yes Arthritis, Fractures Endocrine: No HEENT: No Loss of Vision: Denies Hearing Impairment: Denies Cancer: Yes (METASTATIC LUNG CANCER --METS TO BONE/RIGHT HIP DX 05/2017) Lung Did You Recieve Any Treatments: Yes What Type of Treatment Did You: Chemotherapy Psychosocial: No Integumentary: No Blood Disorders: No Adverse Reaction/Blood Tranf: No Family Medical History Reviewed Nursing Family Hx Hypercholesterolemia 19 FATHER Hypertension 19 FATHER No Pertinent Family Hx, Heart Disease Physical Exam-Suspected Sepsis Physical Exam Vital Signs Vital Signs - First Documented Capillary Refill : Less Than 3 Seconds Blood Pressure Mean: 124 Height, Weight, BMI Height: 6'0.00" Weight: 156lbs. 0.0oz. 70.597076cg; 21.2 BMI Method:Stated General Appearance: Anxious, Chronically ill, Thin, Other (somewhat agitated and asking for water) HEENT: PERRL/EOMI, Pharynx Normal Neck: Non Tender, Supple Respiratory: Crackles, Expiration Cardiovascular: Regular Rate, Rhythm, No Murmur Gastrointestinal: Non Tender, Soft Back: Normal Inspection, No CVA Tenderness, No Vertebral Tenderness Extremity: Other (moves all 4 extremities and was able to stand for EMS for transfer to the cot but seems to be weak in the left arm initially but then was able to hold that upright for an extended period of time.) Neurologic/Psychiatric: Alert, Oriented x3 Skin: warm/dry, other (skin tear to the right forearm) Focused Exam Lactate Level 06/24/18 19:05: Lactic Acid Level 2.22*H Lactic Acid Level Laboratory Tests Test 06/24/18 19:05 Lactic Acid Level 2.22 MMOL/L (0.50-2.00) *H Procedures/Interventions Date of ETT Placement: Mar 09, 2017 Time of ETT Placement: 1811 Suture Size: 5-0 Progress/Results/Core Measures Suspected Sepsis Recent Fever Within 48 Hours: No Infection Criteria Present: None New/Unexplained Altered Menta: No Sepsis Screen: No Definite Risk SIRS Temperature:97.9 Pulse: 78 Respiratory Rate: 20 Laboratory Tests 06/24/18 19:05: White Blood Count 3.6L Blood Pressure 167 /103 Mean: 124 06/24/18 19:05: Lactic Acid Level 2.22*H Laboratory Tests 06/24/18 19:05: Creatinine 0.79, INR Comment 1.0, Platelet Count 214, Total Bilirubin 0.2 Results/Orders Lab Results Laboratory Tests Test 06/24/18 19:05 06/24/18 19:11 06/24/18 19:16 Range/Units White Blood Count 3.6 L 4.3-11.0 10^3/uL Red Blood Count 3.37 L 4.35-5.85 10^6/uL Hemoglobin 10.0 L 13.3-17.7 G/DL Hematocrit 31 L 40-54 % Mean Corpuscular Volume 91 80-99 FL Mean Corpuscular Hemoglobin 30 25-34 PG Mean Corpuscular Hemoglobin Concent 33 32-36 G/DL Red Cell Distribution Width 14.4 10.0-14.5 % Platelet Count 214 130-400 10^3/uL Mean Platelet Volume 8.5 7.4-10.4 FL Neutrophils (%) (Auto) 50 42-75 % Lymphocytes (%) (Auto) 30 12-44 % Monocytes (%) (Auto) 19 H 0-12 % Eosinophils (%) (Auto) 0 0-10 % Basophils (%) (Auto) 0 0-10 % Neutrophils # (Auto) 1.8 1.8-7.8 X 10^3 Lymphocytes # (Auto) 1.1 1.0-4.0 X 10^3 Monocytes # (Auto) 0.7 0.0-1.0 X 10^3 Eosinophils # (Auto) 0.0 0.0-0.3 10^3/uL Basophils # (Auto) 0.0 0.0-0.1 10^3/uL Neutrophils % (Manual) 60 % Lymphocytes % (Manual) 28 % Monocytes % (Manual) 12 % Eosinophils % (Manual) 0 % Basophils % (Manual) 0 % Band Neutrophils 0 % Hypochromasia SLIGHT Prothrombin Time 13.3 12.2-14.7 SEC INR Comment 1.0 0.8-1.4 Activated Partial Thromboplast Time 35 24-35 SEC D-Dimer 0.51 H 0.00-0.49 UG/ML Sodium Level 135 135-145 MMOL/L Potassium Level 4.6 3.6-5.0 MMOL/L Chloride Level 99 98-107 MMOL/L Carbon Dioxide Level 23 21-32 MMOL/L Anion Gap 13 5-14 MMOL/L Blood Urea Nitrogen 11 7-18 MG/DL Creatinine 0.79 0.60-1.30 MG/DL Estimat Glomerular Filtration Rate > 60 BUN/Creatinine Ratio 14 Glucose Level 102 70-105 MG/DL Lactic Acid Level 2.22 *H 0.50-2.00 MMOL/L Calcium Level 8.6 8.5-10.1 MG/DL Corrected Calcium 8.6 8.5-10.1 MG/DL Total Bilirubin 0.2 0.1-1.0 MG/DL Aspartate Amino Transf (AST/SGOT) 12 5-34 U/L Alanine Aminotransferase (ALT/SGPT) 9 0-55 U/L Alkaline Phosphatase 148 H 40-136 U/L Troponin I < 0.028 <0.028 NG/ML Total Protein 7.0 6.4-8.2 GM/DL Albumin 4.0 3.2-4.5 GM/DL Glucometer 101 70-110 MG/DL Urine Color YELLOW Urine Clarity CLEAR Urine pH 6.5 5-9 Urine Specific [place] 1.010 L 1.016-1.022 Urine Protein 1+ H NEGATIVE Urine Glucose (UA) NEGATIVE NEGATIVE Urine Ketones NEGATIVE NEGATIVE Urine Nitrite NEGATIVE NEGATIVE Urine Bilirubin NEGATIVE NEGATIVE Urine Urobilinogen NORMAL NORMAL MG/DL Urine Leukocyte Esterase 1+ H NEGATIVE Urine RBC (Auto) NEGATIVE NEGATIVE Urine RBC RARE /HPF Urine WBC 0-2 /HPF Urine Squamous Epithelial Cells 2-5 /HPF Urine Crystals NONE /LPF Urine Bacteria NEGATIVE /HPF Urine Casts NONE /LPF Urine Mucus NEGATIVE /LPF Urine Culture Indicated NO My Orders Orders - VANESSA GUTHRIE MD Cbc With Automated Diff (06/24/18:) Protime With Inr (06/24/18:) Partial Thromboplastin Time (06/24/18:) Comprehensive Metabolic Panel (06/24/18) Fibrin Degradation Products (06/24/18) Troponin I (06/24/18:) Ua Culture If Indicated (06/24/18) Chest 1 View, Ap/Pa Only (06/24/18:) Ekg Tracing (06/24/18:) Nothing By Mouth (06/25/18 Breakfast) Accucheck Stat ONCE (06/24/18) Saline Lock/Iv-Start (06/24/18:) Saline Lock/Iv-Start (06/24/18:) Vital Signs Stroke Patient Q15M (06/24/18:) Ct Head Wo-R/O Stroke (06/24/18:) O2 (06/24/18:) Intake & Output 06,14,22 (06/24/18:) Monitor-Rhythm Ecg Trace Only (06/24/18:) Dysphagia Screening Tool (06/24/18:) Lipid Panel (06/25/18 06:00) Blood Culture (06/24/18:) Sputum Culture (06/24/18:) Urine Culture (06/24/18:) Vital Signs Adult Sepsis Patie Q15M (06/24/18:09) Remove Rings In Anticipation O (06/24/18:) Lactic Acid Analyzer (06/24/18:) Catheter(Urinary) Insert & Ass 03,15 (06/24/18 19:13) Saline Lock/Iv-Start (06/24/18:16) Ns Iv 500 Ml (Sodium Chloride 0.9%) (06/24/18 19:16) Manual Differential (06/24/18 19:05) Ns Iv 1000 Ml (Sodium Chloride 0.9%) (06/24/18 20:02) Arterial Blood Gas (3/27/19 20:21) Ct Chest W (06/24/18 20:29) Medications Given in ED Current Medications Medications Dose Ordered Sig/Porfirio Route Start Time Stop Time Status Last Admin Dose Admin Sodium Chloride 500 ml @ 0 mls/hr Q0M ONCE IV 06/24/18 19:16 06/24/18 19:17 DC 06/24/18 19:50 500 MLS/HR Vital Signs/I&O 06/24/18 06/24/18 19:03 19:03 Temp 97.9 Pulse 78 Resp 20 B/P (MAP) 167/103 (124) Pulse Ox 97 96 O2 Delivery Nasal Cannula Nasal Cannula O2 Flow Rate 3.00 3.00 Capillary Refill : Less Than 3 Seconds Blood Pressure Mean: 124 Point of Care Testing Finger Stick Blood Glucose: 101 Progress Note : Progress Note Seen and evaluated. Stroke activation initiated due to altered mental status. This is changed from previous. Patient unable to relate details very well and caregiver reports that he has been having issues over the last few days and then worse today this evening. Does have known cancer with metastatic disease and is undergoing chemotherapy. Given his current status with regard to cancer treatment, we will initiate sepsis workup as well. Normal saline 500 mL bolus ordered. Monitor patient. 2018: Right lower lobe pneumonia noted and different from 2 days ago. So some 4.5 g IV initiated. Patient to be admitted. 2019: I discussed the case with Dr. Genao and he accepts patient for admission, inpatient status. Request consult with Dr. Bernal. 2022: I did discuss the case with Dr. Bernal and he accepts patient for consult and requests CT scan of the chest. ABG ordered per PCP request. Patient is overall doing much better. No indication for TPA at this point as patient is back to baseline and he would be significantly higher risk anyway with regard to his cancer. This seems to be related mostly to pneumonia and or dehydration and is improving currently. Treatment will center on the pneumonia. CT scan of the chest to be ordered and will be followed by Dr. Bernal. ECG Initial ECG Impression Date: Jun 24, 2018 Initial ECG Impression Time: 19:40 Initial ECG Rate: 79 Initial ECG Rhythm: Normal Sinus Initial ECG Comparisson: Unchanged Comment Sinus rhythm with normal axis. No evidence of ST elevation TN. Similar to . Interpreted by me. Diagnostic Imaging Diagonstic Imaging: CT Plain Films/CT/US/NM/MRI: head Comments [facility], [facility]. [place], [place] NAME: CR QUIJANO [facility] REC#: [id number] PT STATUS: REG ER : 1955 PHYSICIAN: VANESSA GUTHRIE MD ADMIT DATE: 06/24/18/ER Draft Date of Exam:06/24/18 CT HEAD WO-R/O STROKE PROCEDURE: CT head without contrast, r/o stroke. TECHNIQUE: Multiple contiguous axial images were obtained through the brain without the use of intravenous contrast. Auto Exposure Controls were utilized during the CT exam to meet ALARA standards for radiation dose reduction. INDICATION: Stroke, slurred speech. COMPARISON: 04/23/2018. FINDINGS: Examination is limited secondary to motion artifact. Within the limits of this examination, there is no intracranial hemorrhage. Morphology of the brain appears similar to the prior examination with stable asymmetric enlargement of the right lateral ventricle. No midline shift, herniation, obstructive hydrocephalus or suspicious extra-axial fluid collection. No large territorial acute ischemic infarction. The paranasal sinuses are clear. The calvarium and extracalvarial soft tissues appear stable. IMPRESSION: 1. No acute intracranial abnormality identified with stable morphology of the brain including asymmetric enlargement of the right lateral ventricle. 2. If there remains clinical concern for underlying recent infarction, further evaluation with MRI of the brain could be made. Findings discussed with Dr. Guthrie at 1938 hours on 06/24/2018. Dictated on workstation # [id number] Dict: 06/24/181931 Trans: 06/24/181942 [facility] [id number] Interpreted by: JAMILA MORGAN MD Electronically signed by: Diagonstic Imaging: Xray Plain Films/CT/US/NM/MRI: chest [facility] [employer] [facility]. [place], [place] NAME: CR QUIJANO [facility] REC#: [id number] PT STATUS: REG ER : 1955 PHYSICIAN: VANESSA GUTHRIE MD ADMIT DATE: 06/24/18/ER Draft Date of Exam:06/24/18 CHEST 1 VIEW, AP/PA ONLY INDICATION: Slurred speech. Comparison with 06/22/2018. FINDINGS: There has been increasing cardiac size. Pulmonary vasculature is mildly prominent. There is consolidated infiltrate present in the right lower lobe now. Mild interstitial infiltrate in the left lung base. No evidence of pneumothorax or pleural effusion. There is increased density now overlying the right lateral eighth rib. This was not present on previous days' exam and likely represent some artifact. Port-A-Cath on the right remains unchanged. IMPRESSION: 1. Consolidated infiltrate right lower lung would be consistent with pneumonia. 2. Increased cardiac size with mild pulmonary venous congestive changes noted. Dictated on workstation # [id number] Dict: 06/24/181941 Trans: 06/24/181947 [facility] [id number] Interpreted by: DENZEL SPANN MD Electronically signed by: Departure Communication (Admissions) Time/Spoke to Admitting Phy: 20:20 Time/Spoke to Consulting Phy: 20:23 Impression Primary Impression: Right lower lobe pneumonia Qualified Codes: J18.1 - Lobar pneumonia, unspecified organism Additional Impression: Metastatic primary lung cancer Qualified Codes: C34.92 - Malignant neoplasm of unspecified part of left bronchus or lung Disposition: ADMITTED INPATIENT Condition: Stable Admissions Decision to Admit Reason: Admit from ER (General) Decision to Admit/Date: Jun 24, 2018 Time/Decision to Admit Time: 20:20 Departure-Patient Inst. Referrals: AMANDEEP GENAO DO (PCP/Family) Primary Care Physician VANESSA GUTHRIE MD Jun 24, 2018 19:43
--- NOTE | 2018-06-24 19:49 | Diagnostic Imaging Report ---
INDICATION: Slurred speech. Comparison with 06/22/2018. FINDINGS: There has been increasing cardiac size. Pulmonary vasculature is mildly prominent. There is consolidated infiltrate present in the right lower lobe now. Mild interstitial infiltrate in the left lung base. No evidence of pneumothorax or pleural effusion. There is increased density now overlying the right lateral eighth rib. This was not present on previous days' exam and likely represent some artifact. Port-A-Cath on the right remains unchanged. IMPRESSION: 1. Consolidated infiltrate right lower lung would be consistent with pneumonia. 2. Increased cardiac size with mild pulmonary venous congestive changes noted. Dictated by: Dictated on workstation # [id number]
[2018-06-24] MEDS ORDERED: NS IV 1000 ML 1,000 ML IV SCH (20:02)
--- OUTSIDE RECORDS SUMMARY | 2018-06-24 20:42 | XMS REPORT | Clinical Summary ---
Author Author [facility] Organization [facility] Address Unknown Phone Unavailable Care Team Providers Care Retort Condenser Attendant Name Role Phone Efra Valentino MD Unavailable Source Comments Some departments are not documenting in the electronic medical record. If you do not see the information that you expected, contact Release of Information in the Health Information Management department at [phone] for further assistance in locating additional records.[facility] Allergies Comments Active Allergy Reactions Severity [...]
[2018-06-24 20:58] LABS: ABG BASE EXCESS 1.9 MMOL/L (-2.5-2.5); ABG OXYGEN SATURATION 97 % (94-100); ABG PCO2 52 MMHG (35-45); ABG PO2 90 MMHG (79-93); ABG TCO2 28.9 MMOL/L (21.0-31.0); ALLENS TEST YES-POS; INSPIRED O2 97.9
[2018-06-24 20:59] LABS: ABG PH 7.33 (7.37-7.43); PATIENT TEMP 4L; VENTILATOR NO
--- NOTE | 2018-06-24 21:11 | Diagnostic Imaging Report ---
PROCEDURE: CT chest with contrast only. TECHNIQUE: Multiple contiguous axial images were obtained through the chest after administration of intravenous contrast. Auto Exposure Controls were utilized during the CT exam to meet ALARA standards for radiation dose reduction. INDICATION: Shortness of breath. Cough and congestion. FINDINGS: There are bilateral consolidated alveolar infiltrates in the lung bases, bilaterally, more severe on the left. There are air bronchograms. There is a noncalcified nodule in the right upper lobe, laterally, measuring 5 mm on image 27 series 3. The heart is mildly enlarged. There is good opacification of the aorta and pulmonary arteries. Aorta is atherosclerotic without aneurysm. Pulmonary arteries appear normal. No mediastinal or hilar adenopathy of pathologic size. No pneumothorax or pleural effusion. IMPRESSION: 1. Findings consistent with bilateral lower lobe consolidated pneumonia. 2. 5 mm noncalcified nodule, laterally, in the right upper lobe. Dictated by: Dictated on workstation # [id number]
[2018-06-24 21:15] VITALS: BP 138/78
[2018-06-24] MEDS ORDERED: HOLD METFORMIN - RECEIVED CONTRAST 20 ML VIAL IV SCH (21:15)
[2018-06-24] MEDS ORDERED: IOHEXOL 350 MG/ML 100 ML (OMNIPAQUE 350) VIAL IV ONE (21:15)
--- NOTE | 2018-06-24 21:15 | NUR ---
CR QUIJANO admitted to room 407-1, with an admitting diagnosis of pneumonia, on 06/24/18 from ER via hospital bed, accompanied by an ER staff member and significant other. CR QUIJANO introduced to surroundings, call light, bed controls, phone, TV, temperature control, lights, meal times, smoking policy, visitor policy, side rail policy, bathrooms and showers. Patient Rights given to patient in the handbook. CR QUIJANO verbalizes understanding that [facility] is not responsible for the loss or damage to any personal effects or valuables that are kept in the patients posession during their hospitalization. Plan of care is discussed and there are no questions at this time.
[2018-06-24] MEDS ORDERED: RT-ALBUTEROL/IPRATROPIUM 3 ML (DUONEB) VIAL ONE (21:26)
[2018-06-24] MEDS ORDERED: NOREPINEPHRINE 4 MG in NS (IVPB) 250 ML IV SCH (22:00)
[2018-06-24] MEDS ORDERED: NS IV ONE (22:00)
[2018-06-24] MEDS ORDERED: ACETAMINOPHEN 325 MG TABLET PO PRN (22:00)
[2018-06-24] MEDS ORDERED: VANCOMYCIN INJECTION 1,000 MG in NS (IVPB) 250 ML IV SCH (22:00)
[2018-06-24] MEDS ORDERED: ONDANSETRON 4 MG/2 ML (SDV) Z0FRAN IV PRN (22:00)
--- NOTE | 2018-06-24 22:21 | NUR ---
This RN called Dr. Jang to clarify sepsis protocol orders. Dr. Jang wants NS at 100 mls/hour. He only wants the fluid bolus if the patient gets hypotensive. If the patient has a SBP <90 or a MAP <65, he wants the ordered bolus and then to turn the NS up to 250 mls/hr. All orders are repeated and confirmed.
[2018-06-24] MEDS ORDERED: PIPERACILLIN/TAZO 4.5 GM VIAL (ZOSYN) IV ONE (22:26)
[2018-06-24] MEDS ORDERED: NS (IVPB) 0 ML ONE (22:26)
[2018-06-24] MEDS ORDERED: NS (IVPB) 100 ML ONE (22:27)
[2018-06-24] MEDS ORDERED: VANCOMYCIN INJECTION 1GM (OMNI 250 ML IV ONE (22:27)
[2018-06-24] MEDS ORDERED: RT-ALBUTEROL/IPRATROPIUM 3 ML (DUONEB) VIAL INH PRN (22:30)
[2018-06-24] MEDS: NS IV 1000 ML 1,000 ML IV SCH ×2 (22:32→22:34)
[2018-06-24] MEDS: PIPERACILLIN/TAZOBACTAM (BULK) 4.5 GM in NS (IVPB) 100 ML IV SCH (22:45)
[2018-06-25] VITALS: BP 139/65
[2018-06-25] MEDS: NS IV 1000 ML 1,000 ML IV SCH ×4 (02:28→21:44)
[2018-06-25] MEDS ORDERED: PIPERACILLIN/TAZO 4.5 GM VIAL (ZOSYN) IV ONE (02:34)
[2018-06-25] MEDS ORDERED: NS (IVPB) 100 ML ONE (02:35)
[2018-06-25] MEDS: RT-ALBUTEROL/IPRATROPIUM 3 ML (DUONEB) VIAL INH SCH ×6 (02:40→22:02)
[2018-06-25] MEDS: PIPERACILLIN/TAZOBACTAM (BULK) 4.5 GM in NS (IVPB) 100 ML IV SCH ×3 (03:50→22:02)
[2018-06-25 04:00] VITALS: BP 144/77
[2018-06-25 06:01] LABS: BASOPHILS % (AUTO) 0 % (0-10); EOSINOPHILS % (AUTO) 0 % (0-10); HEMATOCRIT 28 % (40-54); LYMPHOCYTES # (AUTO) 0.6 X 10^3 (1.0-4.0); LYMPHOCYTES % (AUTO) 13 % (12-44); MEAN CORPUSCULAR HEMOGLOBIN 29 PG (25-34); MEAN CORPUSCULAR HGB CONC 32 G/DL (32-36); MEAN CORPUSCULAR VOLUME 91 FL (80-99); MEAN PLATELET VOLUME 8.2 FL (7.4-10.4); MONOCYTES # (AUTO) 0.7 X 10^3 (0.0-1.0); MONOCYTES % (AUTO) 14 % (0-12); NEUTROPHILS # (AUTO) 3.6 X 10^3 (1.8-7.8); NEUTROPHILS % (AUTO) 73 % (42-75); PLATELET COUNT 198 10^3/uL (130-400); RED CELL DISTRIBUTION WIDTH 14.5 % (10.0-14.5); WHITE BLOOD COUNT 4.9 10^3/uL (4.3-11.0)
[2018-06-25 06:23] LABS: ALANINE AMINOTRANSFERASE 7 U/L (0-55); ALBUMIN 3.6 GM/DL (3.2-4.5); ALKALINE PHOSPHATASE 139 U/L (40-136); BILIRUBIN,TOTAL 0.2 MG/DL (0.1-1.0); BUN/CREATININE RATIO 13; CALCIUM 8.7 MG/DL (8.5-10.1); CARBON DIOXIDE 26 MMOL/L (21-32); CHLORIDE 104 MMOL/L (98-107); CHOLESTEROL 326 MG/DL (< 200); CREATININE SERUM 0.71 MG/DL (0.60-1.30); GFR ESTIMATED > 60; GLUCOSE 96 MG/DL (70-105); HDL CHOLESTEROL 89 MG/DL (40-60); POTASSIUM 4.5 MMOL/L (3.6-5.0); SODIUM 136 MMOL/L (135-145); TOTAL PROTEIN 6.1 GM/DL (6.4-8.2); TRIGLYCERIDES 79 MG/DL (<150); VLDL CHOLESTEROL 16 MG/DL (5-40)
--- NOTE | 2018-06-25 07:14 | Pulmonary Consultation ---
History of Present Illness History of Present Illness Date of Consultation 06/25/18 07:08 Time Seen by Provider: 07:08 Date of Admission History of Present Illness 62yo with hx of frequent hospitalizations, severe oxygen dependent COPD, lung cancer currently undergoing chemotherapy presented to ED secondary to MS changes. Pt started slurring words, drooling and then became agitated. Symptoms started with progressive weakness and visual changes over the last couple days. CXR and CT of chest show persist bilateral lower lobe pulmonary infiltrates. Allergies and Home Medications Allergies Coded Allergies: aspirin (Unverified Allergy, Mild, DOES NOT WORK WELL W/ OTHER MEDS, 03/09) ibuprofen (Unverified Allergy, Mild, 03/09/18) Home Medications Albuterol Sulfate 2.5 Mg/3 Ml Vial.neb, 2.5 MG NEB QID, (Reported) Albuterol Sulfate 1 Puff Puff, 2 PUFF IH Q6H PRN for SHORTNESS OF BREATH, ( Reported) 1 PUFF = 90 MCG Amlodipine Besylate 5 Mg Tablet, 5 MG PO 0800, (Reported) LAST FILLED #90 12-25-17 Atorvastatin Calcium 10 Mg Tablet, 10 MG PO 0300, (Reported) LAST FILLED #90 01-20-18 Carbamazepine 200 Mg Tablet, 200 MG PO 0800,2300,0300, (Reported) Carbamazepine 200 Mg Tablet, 400 MG PO 1500, (Reported) TAKES 2 (200 MG) TABLETS Fluticasone/Salmeterol 12 Gm Hfa.aer.ad, 2 PUFF INH BID, (Reported) Gabapentin 300 Mg Capsule, 300 MG PO 2300, (Reported) Gabapentin 600 Mg Tablet, 600 MG PO 0800,1500, (Reported) Hydrocodone/Acetaminophen 1 Each Tablet, 1 TAB PO TID PRN for PAIN-MODERATE, ( Reported) Lamotrigine 100 Mg Tablet, 100 MG PO 1500,2300, (Reported) Lamotrigine 25 Mg Tablet, 25 MG PO 1500,0300, (Reported) Lisinopril 20 Mg Tablet, 20 MG PO 0300, (Reported) LAST FILLED #90 12-25-17 Meloxicam 7.5 Mg Tablet, 7.5 MG PO DAILY, (Reported) Omeprazole 20 Mg Capsule.dr, 20 MG PO DAILY PRN for HEARTBURN, (Reported) Ondansetron 4 Mg Tab.rapdis, 4 MG PO TID PRN for NAUSEA/VOMITING-1ST LINE, ( Reported) Phenytoin Sodium Extended 100 Mg Capsule, 200 MG PO 0800,1500, (Reported) LAST FILLED A 90 DAY SUPPLY 12-22-17 TAKES 2 (100 MG) CAPSULES Phenytoin Sodium Extended 100 Mg Capsule, 100 MG PO 2300, (Reported) LAST FILLED A 90 DAY SUPPLY 12-22-17 Tiotropium [place] 1 Inh Aerp, 1 CAP IH DAILY, (Reported) Past Aezqdtm-Tkdzih-Djrzcx Hx Past Med/Social Hx: Reviewed Nursing Past Med/Soc Hx Patient Social History Alcohol Use: Denies Use Recreational Drug Use: No Drug of Choice: HX OF RX DRUG ABUSE, CLAIMS NONE 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 Smoking Status: Former Smoker Type Used: Cigars, Cigarettes Former Smoker, Quit: May 01, 2017 2nd Hand Smoke Exposure: No (quit in 2017) Recent Foreign Travel: No Contact w/Someone Who Travel: No Recent Infectious Disease Expo: No Recent Hopitalizations: Yes Immunizations Up To Date Tetanus Booster (TDap): Unknown PED Vaccines UTD: Yes Date of Influenza Vaccine: Apr 21, 2018 Seasonal Allergies Seasonal Allergies: Yes Past Medical History Surgeries: Yes (PORT RIGHT CHEST; CT GUIDED BX OF FEMUR; BILATERAL CATARACT SURGERY) Eye Surgery, Gallbladder Respiratory: Yes (METASTATIC LUNG CANCER DX 05/2017; COPD--O2 DEPENDENT ) Asthma, Pneumonia, Chronic Bronchitis, Sleep Apnea, COPD Currently Using CPAP: No Currently Using BIPAP: No Cardiac: Yes Heart Murmur, High Cholesterol, Hypertension, Valvular Heart Disease 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 ) Neuropathy, Seizure Disorder, Vertigo Reproductive Disorders: No Sexually Transmitted Disease: No HIV/AIDS: No Genitourinary: No Gastrointestinal: Yes (CHRONIC NAUSEA/VOMITING) Musculoskeletal: Yes Arthritis, Fractures Endocrine: No HEENT: No Loss of Vision: Denies Hearing Impairment: Denies Cancer: Yes (METASTATIC LUNG CANCER --METS TO BONE/RIGHT HIP DX 05/2017) Lung Did You Recieve Any Treatments: Yes What Type of Treatment Did You: Chemotherapy Psychosocial: No Integumentary: No Blood Disorders: No Adverse Reaction/Blood Tranf: No Family Medical History Reviewed Nursing Family Hx Hypercholesterolemia 19 FATHER Hypertension 19 FATHER No Pertinent Family Hx, Heart Disease Review of Systems Time Seen by Provider: 12:52 Constitutional: Weakness, Malaise; No: Fever, Chills, Sweats, Other Eyes: No: Pain, Vision change, Conjunctivae inflammation, Eyelid inflammation, Other, Redness ENT: Nose congestion; No: Ear pain, Ear discharge, Nose pain, Nose discharge, Mouth pain, Mouth swelling, Throat pain, Throat swelling, Other Respiratory: Cough, Dry, Shortness of breath, SOB with excertion; No: Wheezing , Hemoptysis Cardiovascular: Palpitations, Paroxysmal Noc. Dyspnea; No: Chest Pain, Orthopnea, Edema, Lt Headedness, Other Gastrointestinal: Diarrhea; No: Nausea, Vomiting, Abdominal Pain, Melena, Hematochezia, Other Genitourinary: No Dysuria, No Frequency, No Incontinence, No Hematuria, No Retention, No Other Musculoskeletal: neck pain, back pain Neurological: Weakness, Incoordination, Change in speech, Confusion, Seizures Sepsis Event Evaluation Height, Weight, BMI Height: 6'0.00" Weight: 156lbs. 0.0oz. 70.955750pp; 21.2 BMI Method:Stated Exam Exam Vital Signs Date Time Temp Pulse Resp B/P (MAP) Pulse Ox O2 Delivery O2 Flow Rate FiO2 06/25/18 06:33 94 Nasal Cannula 3.00 06/25/18 04:00 98.2 72 20 144/77 (99) 98 Nasal Cannula 3.00 06/25/18 02:40 95 Nasal Cannula 3.00 06/25/18 00:00 97.5 80 22 139/65 (89) 94 Nasal Cannula 3.00 06/24/18 21:29 99 Nasal Cannula 3.00 06/24/18 21:24 77 99 32 06/24/18 21:15 99.0 78 20 138/78 (98) 99 Nasal Cannula 3.00 06/24/18 21:15 99.0 78 20 138/78 99 Nasal Cannula 3.00 3.00 06/24/18 21:15 Nasal Cannula 3.00 06/24/18 21:05 72 15 152/88 (109) 98 Nasal Cannula 3.00 06/24/18 19:03 96 Nasal Cannula 3.00 06/24/18 19:03 97.9 78 20 167/103 (124) 97 Nasal Cannula 3.00 I & O 06/25/18 06:59 Intake Total 1150 ml Output Total 3200 ml Balance -2050 ml Height & Weight Height: 6'0.00" Weight: 156lbs. 0.0oz. 70.283829kf; 21.2 BMI Method:Stated General Appearance: Anxious, Chronically ill, Mild Distress, Thin HEENT: PERRL/EOMI, Pharynx Normal Neck: Non Tender, Supple Respiratory: Crackles, Expiration Cardiovascular: Regular Rate, Rhythm, No Murmur Capillary Refill: Less Than 3 Seconds Gastrointestinal: normal bowel sounds, non tender, soft, no organomegaly Extremity: Normal Capillary Refill, Non Tender, Other (moves all 4 extremities and was able to stand for EMS for transfer to the cot but seems to be weak in the left arm initially but then was able to hold that upright for an extended period of time.) Neurologic/Psychiatric: Alert, Oriented x3 Skin: Normal Color Results Lab Laboratory Tests 06/24/18 19:05 06/25/18 05:41 Assessment/Plan Assessment/Plan MS changes - weakness, confusion, visual changes - probably secondary to multiple antiseizure meds. -CT head is negative -Check TSH, ammonia level, and Neurontin level Frequent hospitalizations with pneumonia -Pt was on out pt Omnicef and prednisone Bilateral pneumonia - this is probably a slowly resolving PNA -D/C vanco, cont Zosyn for now -Consider bronchoscopy today left Metastatic lung cancer to left femur -undergoing chemotherapy Seizures hx -Seizure precautions -Check Neurontin level Elevated LFTs -Check Abd US and ammonia level Anemia -Monitor Pt is medical condition is very complex madisyn with metastatic lung cancer and hx of uncontrolled seizures. RANI PACHECO DO Jun 25, 2018 07:14
[2018-06-25 08:00] VITALS: BP 145/76
--- NOTE | 2018-06-25 08:46 | History & Physicial ---
History of Present Illness History of Present Illness Reason for visit/HPI Patient brought out to emergency room. Patient had acute mental status change. Patient had slurry speech and drooling 6 p.m. last night. Patient difficulty following commands. Patient the last 2 days fell 3-[address] shows bilateral pneumonia. Patient has history of metastatic lung cancer. Patient's last chemotherapy was Friday. Patient has history of COPD. Patient previously had a neck fracture. Patient has bone metastasis Date of Admission Jun 24, 2018 at 20:23 Time Seen by a Provider: 08:39 I consulted on this patient on 06/25/18 08:39 Attending Physician Micky Genao DO Admitting Physician Micky Genao DO Consult Allergies and Home Medications Allergies Coded Allergies: aspirin (Unverified Allergy, Mild, DOES NOT WORK WELL W/ OTHER MEDS, 03/09) ibuprofen (Unverified Allergy, Mild, 03/09/18) Home Medications Albuterol Sulfate 2.5 Mg/3 Ml Vial.neb, 2.5 MG NEB 5XD PRN for SHORTNESS OF BREATH, (Reported) Albuterol Sulfate 1 Puff Puff, 2 PUFF IH Q6H PRN for SHORTNESS OF BREATH, ( Reported) 1 PUFF = 90 MCG Amlodipine Besylate 5 Mg Tablet, 5 MG PO 0800, (Reported) Atorvastatin Calcium 10 Mg Tablet, 10 MG PO 0300, (Reported) Carbamazepine 200 Mg Tablet, 200 MG PO 0800,2300,0300, (Reported) Carbamazepine 200 Mg Tablet, 400 MG PO 1500, (Reported) TAKES 2 (200 MG) TABLETS Fluticasone/Salmeterol 12 Gm Hfa.aer.ad, 2 PUFF INH BID, (Reported) Gabapentin 300 Mg Capsule, 300 MG PO 2300, (Reported) Gabapentin 600 Mg Tablet, 600 MG PO 0800,1500, (Reported) Hydrocodone/Acetaminophen 1 Each Tablet, 1 TAB PO Q6H PRN for PAIN-MODERATE, ( Reported) Lamotrigine 100 Mg Tablet, 100 MG PO 1500,2300, (Reported) Lamotrigine 25 Mg Tablet, 25 MG PO 1500,0300, (Reported) Lisinopril 20 Mg Tablet, 20 MG PO 0300, (Reported) Meloxicam 7.5 Mg Tablet, 7.5 MG PO DAILY, (Reported) Omeprazole 20 Mg Capsule.dr, 20 MG PO DAILY PRN for HEARTBURN, (Reported) Ondansetron 4 Mg Tab.rapdis, 4 MG PO TID PRN for NAUSEA/VOMITING-1ST LINE, ( Reported) Phenytoin Sodium Extended 100 Mg Capsule, 200 MG PO 0800,1500, (Reported) TAKES 2 (100 MG) CAPSULES Phenytoin Sodium Extended 100 Mg Capsule, 100 MG PO 2300, (Reported) Tiotropium [place] 1 Inh Aerp, 1 CAP IH DAILY, (Reported) Patient Home Medication List Home Medication List Reviewed: No Past Ivqrbby-Xvxqje-Tuaapo Hx Patient Social History Marrital Status: cohabiting Alcohol Use: Denies Use Recreational Drug Use: No Drug of Choice: HX OF RX DRUG ABUSE, CLAIMS NONE 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 Smoking Status: Former Smoker Former Smoker, Quit: May 01, 2017 Type Used: Cigars, Cigarettes 2nd Hand Smoke Exposure: No (quit in 2017) Physical Abuse Screen: No Sexual Abuse: No Recent Foreign Travel: No Contact w/other who traveled: No Recent Hopitalizations: Yes Recent Infectious Disease Expo: No Immunizations Up To Date Tetanus Booster (TDap): Unknown Pediatric: Yes Date of Influenza Vaccine: Apr 21, 2018 Seasonal Allergies Seasonal Allergies: Yes Surgeries Yes (PORT RIGHT CHEST; CT GUIDED BX OF FEMUR; BILATERAL CATARACT SURGERY) Eye Surgery, Gallbladder Respiratory Yes (METASTATIC LUNG CANCER DX 05/2017; COPD--O2 DEPENDENT ) COPD, Emphysema, Pneumonia Currently Using CPAP: No Currently Using BIPAP: No Cardiovascular Yes Heart Murmur, High Cholesterol, Hypertension, Valvular Heart Disease Neurological 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) Neuropathy, Seizure Disorder, Vertigo Reproductive System Hx Reproductive Disorders: No Sexually Transmitted Disease: No HIV/AIDS: No Genitourinary No Gastrointestinal Yes (CHRONIC NAUSEA/VOMITING) Musculoskeletal Yes Arthritis, Fractures Endocrine History of Endocrine Disorders: No HEENT History of HEENT Disorders: No Loss of Vision: Denies Hearing Impairment: Denies Cancer Yes (METASTATIC LUNG CANCER --METS TO BONE/RIGHT HIP DX 05/2017) Lung Did You Recieve Any Treatments: Yes Type of Treatment: Chemotherapy Psychosocial History of Psychiatric Problem: No Integumentary History of Skin or Integumenta: No Blood Transfusions History of Blood Disorders: No Adverse Reaction to a Blood Tr: No Family Medical History Significant Family History: No Pertinent Family Hx, Heart Disease Family Hx: Hypercholesterolemia 19 FATHER Hypertension 19 FATHER Review of Systems Constitutional: other (Confusion, drooling of mouth,) EENTM: no symptoms reported Respiratory: no symptoms reported Cardiovascular: no symptoms reported Gastrointestinal: no symptoms reported Genitourinary: no symptoms reported Physical Exam Vital Signs Vital Signs - First Documented 06/24/18 21:24 FiO2 32 Capillary Refill : Less Than 3 Seconds Height, Weight, BMI Height: 6'0.00" Weight: 156lbs. 0.0oz. 70.023478xl; 21.2 BMI Method:Stated General Appearance: No Apparent Distress, Thin Eyes: Bilateral Eye Normal Inspection HEENT: Normal ENT Inspection Neck: Full Range of Motion, Normal Inspection Respiratory: No Accessory Muscle Use, No Respiratory Distress, Decreased Breath Sounds Cardiovascular: Regular Rate, Rhythm, No Murmur Gastrointestinal: Non Tender, Soft Assessment/Plan Assessment and Plan Acute mental status change. Slurring of speech. Fall. Seizures. Metastatic lung cancer to bone. Elevated liver tests. COPD. Pneumonia. Admission Diagnosis Admission Status: Inpatient Order (span 2 midnights) Reason for Inpatient Admission: Acute mental status change. Metastatic lung cancer. Elevated liver tests. Clinical Quality Measures DVT/VTE Risk/Contraindication: Risk Factor Score Per Nursin RFS Level Per Nursing on Admit: 4+=Very High MICKY GENAO DO Jun 25, 2018 08:46
[2018-06-25] MEDS ORDERED: HYDR-3816 PO (08:52)
--- NOTE | 2018-06-25 08:58 | NUR ---
WENT OVER THE EXT MED HX WITH THE PATIENT AND HE VERIFIED HOW HE IS TAKING THEM. HE HAS A LIST ON HIS PHONE HOWEVER HE REPORTS HE TAKES HIS DILANTIN A LITTLE DIFFERENTLY. HIS CARBAMAZEPINE WAS FILLED #180 FOR 30 DAYS HOWEVER HE ONLY TAKES 5 A DAY. HE IS PAST DUE FOR REFILLS ON A FEW MEDICATIONS, I NOTED THE DATE ON THE MED REC. PAST DUE MEDS: 01-20-18 LIPITOR 10MG #90 18 AMLODIPINE 5MG #90 12-25-17 LISINOPRIL 20MG #90 12-22-17 DILANTIN 100MG #450
--- NOTE | 2018-06-25 10:17 | Diagnostic Imaging Report ---
PROCEDURE: US abdomen complete. TECHNIQUE: Multiple real-time grayscale images were obtained over the abdomen in various projections. INDICATION: Elevated liver function test. Patient has history of small cell lung carcinoma. FINDINGS: Liver is enlarged at 20 cm. No discrete liver mass is identified. The portal vein is patent and shows normal direction of flow. The gallbladder is surgically absent. No definite biliary ductal dilatation is identified. Spleen is normal in size at 10.6 cm. The pancreas was obscured by bowel gas. Aorta was obscured. IVC is unremarkable. Right and left kidneys are unremarkable. No calculi or hydronephrosis is seen. There is no ascites. IMPRESSION: 1. Mild hepatomegaly. 2. No other significant abnormality is detected. Dictated by: Dictated on workstation # [id number]
[2018-06-25 12:00] VITALS: BP 158/86
[2018-06-25] MEDS: carBAMazepine 200 MG (TEGretol) TAB PO SCH ×2 (12:20→23:16)
[2018-06-25] MEDS: ENOXAPARIN 40 MG/0.4 ML (LOVENOX) SYR SC SCH (12:20)
--- NOTE | 2018-06-25 12:36 | Diagnostic Imaging Report ---
INDICATION: Multiple recent falls. History of prior C2 fracture. COMPARISON: 06/22/2018. FINDINGS: Frontal, lateral, and open mouth views of cervical spine were obtained. Again identified is nonacute fracture of C2 with mild displacement of the fracture fragments. Also again identified is mild offset of the C1-C2 alignment on the open mouth view. These findings however are stable when compared to prior exam. There is also stable mild grade 1 anterolisthesis of C3-C4 and C4-C5 as well as reversal of normal lordotic curvature of cervical spine at C5-C6. This however is also stable. There is no evidence of jumped facets. Vertebral body heights are otherwise stable in size and contour without evidence of acute fracture. Advanced multilevel degenerative changes are noted. Surrounding soft tissue structures are unremarkable. IMPRESSION: 1. Stable exam of the cervical spine showing nonacute mildly displaced fracture of C2. 2. Derangement of static alignment of the cervical spine with advanced multilevel degenerative changes, also stable. 3. No new acute fracture or dislocation. Dictated by: Dictated on workstation # [id number]
[2018-06-25] MEDS ORDERED: carBAMazepine 200 MG (TEGretol) TAB PO SCH (15:00)
[2018-06-25] MEDS: GABAPENTIN 600 MG (NEURONTIN) TAB PO SCH (15:18)
[2018-06-25] MEDS: lamoTRIgine 25 MG (LaMICtal) TAB PO SCH (15:18)
[2018-06-25] MEDS: PHENYTOIN 100 MG (DILANTIN) CAP PO SCH (15:19)
[2018-06-25] MEDS ORDERED: ONDANSETRON 4 MG (ZOFRAN) ORAL DISSOLVE TAB PO PRN (16:15)
[2018-06-25 16:39] VITALS: BP 134/78
[2018-06-25] MEDS ORDERED: HYDROcodone/APAP 7.5 MG/325 MG (LORTAB, LORCET PLUS) TABLET PO PRN (16:45)
[2018-06-25] MEDS: RT-ADVAIR HFA 115/21 MCG PER PUFF IH SCH (18:24)
[2018-06-25 20:00] VITALS: BP 142/77
[2018-06-25] MEDS ORDERED: ATORVASTATIN 10 MG (LIPITOR) TABLET PO SCH (21:00)
[2018-06-25] MEDS: UMECLIDINIUM BROMIDE (INCRUSE ELLIPTA) 7'S IH SCH (21:03)
[2018-06-25] MEDS ORDERED: PHENYTOIN 100 MG (DILANTIN) CAP PO SCH (23:00)
[2018-06-25] MEDS ORDERED: GABAPENTIN 300 MG (NEURONTIN) CAP PO SCH (23:00)
[2018-06-26] VITALS: BP 147/78
[2018-06-26] MEDS: RT-ALBUTEROL/IPRATROPIUM 3 ML (DUONEB) VIAL INH SCH ×3 (02:26→10:54)
[2018-06-26] MEDS ORDERED: lisINopril 20 MG (PRINIVIL) TABLET PO SCH (03:00)
[2018-06-26] MEDS: lamoTRIgine 25 MG (LaMICtal) TAB PO SCH (03:17)
[2018-06-26] MEDS: carBAMazepine 200 MG (TEGretol) TAB PO SCH ×2 (03:17→09:02)
[2018-06-26 04:00] VITALS: BP 154/78
[2018-06-26] MEDS: PIPERACILLIN/TAZOBACTAM (BULK) 4.5 GM in NS (IVPB) 100 ML IV SCH ×2 (05:56→14:01)
[2018-06-26 06:12] LABS: BASOPHILS % (AUTO) 0 % (0-10); EOSINOPHILS % (AUTO) 0 % (0-10); HEMATOCRIT 28 % (40-54); HEMOGLOBIN 9.2 G/DL (13.3-17.7); LYMPHOCYTES # (AUTO) 0.7 X 10^3 (1.0-4.0); LYMPHOCYTES % (AUTO) 19 % (12-44); MEAN CORPUSCULAR HEMOGLOBIN 30 PG (25-34); MEAN CORPUSCULAR HGB CONC 33 G/DL (32-36); MEAN CORPUSCULAR VOLUME 91 FL (80-99); MEAN PLATELET VOLUME 8.5 FL (7.4-10.4); MONOCYTES # (AUTO) 0.7 X 10^3 (0.0-1.0); MONOCYTES % (AUTO) 19 % (0-12); NEUTROPHILS # (AUTO) 2.1 X 10^3 (1.8-7.8); NEUTROPHILS % (AUTO) 62 % (42-75); PLATELET COUNT 173 10^3/uL (130-400); RED CELL DISTRIBUTION WIDTH 14.1 % (10.0-14.5); WHITE BLOOD COUNT 3.4 10^3/uL (4.3-11.0)
[2018-06-26 06:39] LABS: ALANINE AMINOTRANSFERASE 7 U/L (0-55); ALBUMIN 3.5 GM/DL (3.2-4.5); ALKALINE PHOSPHATASE 124 U/L (40-136); BILIRUBIN,TOTAL 0.2 MG/DL (0.1-1.0); BUN/CREATININE RATIO 9; CALCIUM 8.3 MG/DL (8.5-10.1); CARBON DIOXIDE 24 MMOL/L (21-32); CHLORIDE 103 MMOL/L (98-107); GFR ESTIMATED > 60; GLUCOSE 101 MG/DL (70-105); SODIUM 138 MMOL/L (135-145); TOTAL PROTEIN 6.1 GM/DL (6.4-8.2)
[2018-06-26] MEDS: RT-ADVAIR HFA 115/21 MCG PER PUFF IH SCH (06:40)
[2018-06-26] MEDS: UMECLIDINIUM BROMIDE (INCRUSE ELLIPTA) 7'S IH SCH (06:40)
--- NOTE | 2018-06-26 07:29 | Pulmonary Progress Note ---
Subjective Time Seen by a Provider: 07:28 Subjective/Events-last exam No complications noted. Sepsis Event Evaluation Height, Weight, BMI Height: 6'0.00" Weight: 156lbs. 0.0oz. 70.757945ro; 21.2 BMI Method:Stated Focused Exam Lactate Level 06/24/18 19:05: Lactic Acid Level 2.22*H 06/24/18 22:50: Lactic Acid Level 0.63 Exam Exam Vital Signs Date Time Temp Pulse Resp B/P (MAP) Pulse Ox O2 Delivery O2 Flow Rate FiO2 06/26/18 06:47 Nasal Cannula 06/26/18 06:40 96 Nasal Cannula 3.00 06/26/18 04:00 98.0 63 20 154/78 (103) 96 Nasal Cannula 3.00 06/26/18 02:26 93 Nasal Cannula 3.00 06/26/18 00:00 98.6 75 20 147/78 (101) 98 Nasal Cannula 3.00 06/25/18 22:02 94 Nasal Cannula 3.00 06/25/18 20:15 Nasal Cannula 3.00 06/25/18 20:00 98.1 142/77 (98) 06/25/18 18:16 95 Nasal Cannula 3.00 06/25/18 16:39 97.8 76 19 134/78 (96) 98 Nasal Cannula 3.00 06/25/18 14:09 94 Nasal Cannula 3.00 06/25/18 12:00 97.6 75 20 158/86 (110) 99 Nasal Cannula 3.00 06/25/18 08:00 94 Nasal Cannula 3.00 06/25/18 08:00 97.8 67 20 145/76 (99) 97 Nasal Cannula 3.00 I & O 06/26/18 07:00 Intake Total 5530 ml Output Total 5850 ml Balance -320 ml Height & Weight Height: 6'0.00" Weight: 156lbs. 0.0oz. 70.422594ci; 21.2 BMI Method:Stated General Appearance: Anxious, Chronically ill, Mild Distress, Thin HEENT: PERRL/EOMI, Pharynx Normal Neck: Non Tender, Supple Respiratory: Crackles, Expiration Cardiovascular: Regular Rate, Rhythm, No Murmur Capillary Refill: Less Than 3 Seconds Gastrointestinal: normal bowel sounds, non tender, soft, no organomegaly Extremity: Normal Capillary Refill, Non Tender, Other (moves all 4 extremities and was able to stand for EMS for transfer to the cot but seems to be weak in the left arm initially but then was able to hold that upright for an extended period of time.) Neurologic/Psychiatric: Alert, Oriented x3 Skin: Normal Color Results Lab Laboratory Tests 06/24/18 19:05 06/25/18 05:41 06/26/18 05:45 Assessment/Plan Assessment/Plan MS changes - weakness, confusion, visual changes - probably secondary to multiple antiseizure meds. -CT head is negative Severe COPD with chronic respiratory failure -SVNs -Oxygen Frequent hospitalizations with pneumonia -Pt was on out pt Omnicef and prednisone Bilateral pneumonia - this is probably a slowly resolving PNA -Zosyn left Metastatic lung cancer to left femur -undergoing chemotherapy Seizures hx -Seizure precautions -Check Neurontin level Elevated LFTs -Check Abd US and ammonia level Anemia -Monitor RANI PACHECO DO Jun 26, 2018 07:29
[2018-06-26] MEDS ORDERED: predniSONE 20 MG TAB PO NR (07:45)
--- NOTE | 2018-06-26 07:46 | Progress Note (SOAP) ---
Subjective Time Seen by a Provider: 07:41 Subjective/Events-last exam Patient doing better. Acute mental status change has resolved. Patient not agitated. Patient having no slurry words speaking good area Agitation resolved. Patient states weak and having pain in the left TMJ area. Cervical x-ray stable from falls. Metastatic lung cancer to bone left femur. Anemia. Hyperlipidemia Focused Exam Lactate Level 06/24/18 19:05: Lactic Acid Level 2.22*H 06/24/18 22:50: Lactic Acid Level 0.63 Objective Exam Vital Signs Date Time Temp Pulse Resp B/P (MAP) Pulse Ox O2 Delivery O2 Flow Rate FiO2 06/26/18 06:47 Nasal Cannula 06/26/18 06:40 96 Nasal Cannula 3.00 06/26/18 04:00 98.0 63 20 154/78 (103) 96 Nasal Cannula 3.00 06/26/18 02:26 93 Nasal Cannula 3.00 06/26/18 00:00 98.6 75 20 147/78 (101) 98 Nasal Cannula 3.00 06/25/18 22:02 94 Nasal Cannula 3.00 06/25/18 20:15 Nasal Cannula 3.00 06/25/18 20:00 98.1 142/77 (98) 06/25/18 18:16 95 Nasal Cannula 3.00 06/25/18 16:39 97.8 76 19 134/78 (96) 98 Nasal Cannula 3.00 06/25/18 14:09 94 Nasal Cannula 3.00 06/25/18 12:00 97.6 75 20 158/86 (110) 99 Nasal Cannula 3.00 06/25/18 08:00 94 Nasal Cannula 3.00 06/25/18 08:00 97.8 67 20 145/76 (99) 97 Nasal Cannula 3.00 I & O 06/26/18 07:00 Intake Total 5530 ml Output Total 5850 ml Balance -320 ml Capillary Refill : Less Than 3 Seconds General Appearance: No Apparent Distress, Thin HEENT: Normal ENT Inspection Neck: Full Range of Motion, Normal Inspection Respiratory: No Accessory Muscle Use, No Respiratory Distress, Decreased Breath Sounds Cardiovascular: Regular Rate, Rhythm, No Murmur Gastrointestinal: non tender, soft Results Lab Laboratory Tests 06/26/18 05:45 Laboratory Tests 06/25/18 09:35: Ammonia 48H, Thyroid Stimulating Hormone (TSH) 0.35 06/26/18 05:45: White Blood Count 3.4L, Red Blood Count 3.10L, Hemoglobin 9.2L, Hematocrit 28L, Mean Corpuscular Volume 91, Mean Corpuscular Hemoglobin 30, Mean Corpuscular Hemoglobin Concent 33, Red Cell Distribution Width 14.1, Platelet Count 173, Mean Platelet Volume 8.5, Neutrophils (%) (Auto) 62, Lymphocytes (%) (Auto) 19, Monocytes (%) (Auto) 19H, Eosinophils (%) (Auto) 0, Basophils (%) (Auto) 0, Neutrophils # (Auto) 2.1, Lymphocytes # (Auto) 0.7L, Monocytes # (Auto) 0.7, Eosinophils # (Auto) 0.0, Basophils # (Auto) 0.0, Sodium Level 138, Potassium Level 4.0, Chloride Level 103, Carbon Dioxide Level 24, Anion Gap 11, Blood Urea Nitrogen 6L, Creatinine 0.70, Estimat Glomerular Filtration Rate > 60, BUN/ Creatinine Ratio 9, Glucose Level 101, Calcium Level 8.3L, Corrected Calcium 8.7 , Total Bilirubin 0.2, Aspartate Amino Transf (AST/SGOT) 11, Alanine Aminotransferase (ALT/SGPT) 7, Alkaline Phosphatase 124, Total Protein 6.1L, Albumin 3.5 Microbiology 06/24/18 Blood Culture - Preliminary, Resulted No growth 06/24/18 Urine Culture - Final, Complete NO GROWTH Assessment/Plan Assessment/Plan Assess & Plan/Chief Complaint Acute mental status change. Weakness. Slurry speech. Agitation. Seizures. Metastatic lung cancer to bone left femur. Resolving pneumonia. Anemia. Hyperlipidemia. Cervical x-ray stable. Nurse to call me at 11 a.m. how patient is doing Clinical Quality Measures Admission Status Admission Dx Acute mental status change. Slurring of speech. Fall. Seizures. Metastatic lung cancer to bone. Elevated liver tests. COPD. Pneumonia. DVT/VTE Risk/Contraindication: Risk Factor Score Per Nursin RFS Level Per Nursing on Admit: 4+=Very High AMANDEEP GENAO DO Jun 26, 2018 07:46
[2018-06-26 08:09] VITALS: BP 120/61
[2018-06-26] MEDS ORDERED: amLODIPine 5 MG (NORVASC) TAB PO SCH (09:00)
[2018-06-26] MEDS ORDERED: MELOXICAM 7.5 MG (MOBIC) TABLET PO SCH (09:00)
[2018-06-26] MEDS ORDERED: PANTOPRAZOLE 20 MG TABLET (PROTONIX) PO PRN (09:00)
[2018-06-26] MEDS ORDERED: TIOTROPIUM BROMIDE (SPIRIVA) 5'S INHALER IH SCH (09:00)
--- NOTE | 2018-06-26 09:00 | NUR ---
PORTILLO CATH REMOVED WITHOUT DIFFICULTY. URINAL AT BEDSIDE.
[2018-06-26] MEDS: PHENYTOIN 100 MG (DILANTIN) CAP PO SCH (09:01)
[2018-06-26] MEDS: GABAPENTIN 600 MG (NEURONTIN) TAB PO SCH (09:01)
[2018-06-26] MEDS: ENOXAPARIN 40 MG/0.4 ML (LOVENOX) SYR SC SCH (09:02)
--- NOTE | 2018-06-26 09:05 | NUR ---
PREDNISONE PO X 1 ORDERED. IVF DC'D ORDERED.
[2018-06-26 12:30] VITALS: BP 132/62
[2018-06-26] MEDS ORDERED: ATOR20TA66 PO ×2 (12:52→12:54)
[2018-06-26] MEDS ORDERED: CEFD300C3 PO (12:54)
--- NOTE | 2018-06-26 13:00 | NUR ---
GROSHONG FLUSHED AND DEACESSED AND PERIPHERAL IV REMOVED. SITES CLEAR.
--- NOTE | 2018-06-26 14:13 | NUR ---
RX AND INST AND VERBALIZED UNDERSTANDING. AWAITING RIDE.
--- NOTE | 2018-06-26 14:25 | NUR ---
DC'D PER WC WITH SO. VERBALIZED UNDERSTANDING OF DC INSTRUCTIONS.
--- NOTE | 2018-06-26 15:25 | NUR ---
Pt recently obtained a Front Wheel Walker with seat attachment and states it's really helped with ambulation. Pt was pleased with discharge plan home with his caregiver Tabatha and he also has a [facility] homemaker providing 40 hours weekly services in the home. Upon discharge pt stated he had no needs as Tabatha was proving him transportation home.
--- NOTE | 2018-06-29 07:03 | Discharge Summary ---
Diagnosis/Chief Complaint Date of Admission Jun 24, 2018 at 20:23 Date of Discharge Jun 26, 2018 at 14:26 Discharge Time: 06:59 Discharge Diagnosis She is admitted due to acute mental status changes. Slurring speech. Drooling of mouth. Agitation. Inability to follow commands. Stroke symptoms. COPD. Epilepsy. Essential hypertension. COPD. Pneumonia. Lung cancer with metastasis to bone. Lobar pneumonia. Personal history of nicotine dependence. Hyperlipidemia. Dependence on supplemental oxygen. Anemia. Repeated falls at home. Cervical fracture Reason Hospital Visit Patient brought out to emergency room. Patient had acute mental status change. Patient had slurry speech and drooling 6 p.m. last night. Patient difficulty following commands. Patient the last 2 days fell 3-[address] shows bilateral pneumonia. Patient has history of metastatic lung cancer. Patient's last chemotherapy was Friday. Patient has history of COPD. Patient previously had a neck fracture. Patient has bone metastasis Discharge Summary Consultations Pulmonology Discharge Physical Examination Allergies: Coded Allergies: aspirin (Unverified Allergy, Mild, DOES NOT WORK WELL W/ OTHER MEDS, 03/09) ibuprofen (Unverified Allergy, Mild, 03/09/18) Vitals & I&Os Vital Signs Date Time Temp Pulse Resp B/P (MAP) Pulse Ox O2 Delivery O2 Flow Rate FiO2 06/26/18 12:30 98.0 68 18 132/62 (85) 96 Nasal Cannula 3.00 06/24/18 21:24 32 Hospital Course Patient improved. Patient's acute mental status changes resolved. Patient able to follow commands. No drooling from the mouth. Patient able to communicate Labs (last 24 hrs) Laboratory Tests 06/24/18 19:05: White Blood Count 3.6L, Red Blood Count 3.37L, Hemoglobin 10.0L, Hematocrit 31L , Mean Corpuscular Volume 91, Mean Corpuscular Hemoglobin 30, Mean Corpuscular Hemoglobin Concent 33, Red Cell Distribution Width 14.4, Platelet Count 214, Mean Platelet Volume 8.5, Neutrophils (%) (Auto) 50, Lymphocytes (%) (Auto) 30, Monocytes (%) (Auto) 19H, Eosinophils (%) (Auto) 0, Basophils (%) (Auto) 0, Neutrophils # (Auto) 1.8, Lymphocytes # (Auto) 1.1, Monocytes # (Auto) 0.7, Eosinophils # (Auto) 0.0, Basophils # (Auto) 0.0, Neutrophils % (Manual) 60, Lymphocytes % (Manual) 28, Monocytes % (Manual) 12, Eosinophils % (Manual) 0, Basophils % (Manual) 0, Band Neutrophils 0, Hypochromasia SLIGHT, Prothrombin Time 13.3, INR Comment 1.0, Activated Partial Thromboplast Time 35, D-Dimer 0.51H, Sodium Level 135, Potassium Level 4.6, Chloride Level 99, Carbon Dioxide Level 23, Anion Gap 13, Blood Urea Nitrogen 11, Creatinine 0.79, Estimat Glomerular Filtration Rate > 60, BUN/Creatinine Ratio 14, Glucose Level 102, Lactic Acid Level 2.22*H, Calcium Level 8.6, Corrected Calcium 8.6, Total Bilirubin 0.2, Aspartate Amino Transf (AST/SGOT) 12, Alanine Aminotransferase ( ALT/SGPT) 9, Alkaline Phosphatase 148H, Troponin I < 0.028, Total Protein 7.0, Albumin 4.0 06/24/18 19:11: Glucometer 101 06/24/18 19:16: Urine Color YELLOW, Urine Clarity CLEAR, Urine pH 6.5, Urine Specific [place] 1.010L, Urine Protein 1+H, Urine Glucose (UA) NEGATIVE, Urine Ketones NEGATIVE, Urine Nitrite NEGATIVE, Urine Bilirubin NEGATIVE, Urine Urobilinogen NORMAL, Urine Leukocyte Esterase 1+H, Urine RBC (Auto) NEGATIVE, Urine RBC RARE, Urine WBC 0-2, Urine Squamous Epithelial Cells 2-5, Urine Crystals NONE, Urine Bacteria NEGATIVE, Urine Casts NONE, Urine Mucus NEGATIVE, Urine Culture Indicated NO 06/24/18 20:42: Blood Gas Puncture Site R RAD, Blood Gas Patient Temperature 4L, Arterial Blood pH 7.33*L, Arterial Blood Partial Pressure CO2 52H, Arterial Blood Partial Pressure O2 90, Arterial Blood HCO3 27, Arterial Blood Total CO2 28.9, Arterial Blood Oxygen Saturation 97, Arterial Blood Base Excess 1.9, Johan Test YES-POS, Blood Gas Ventilator Setting NO, Blood Gas Inspired Oxygen 97.9 06/24/18 22:50: Lactic Acid Level 0.63 06/25/18 05:41: White Blood Count 4.9, Red Blood Count 3.11L, Hemoglobin 9.0L, Hematocrit 28L, Mean Corpuscular Volume 91, Mean Corpuscular Hemoglobin 29, Mean Corpuscular Hemoglobin Concent 32, Red Cell Distribution Width 14.5, Platelet Count 198, Mean Platelet Volume 8.2, Neutrophils (%) (Auto) 73, Lymphocytes (%) (Auto) 13, Monocytes (%) (Auto) 14H, Eosinophils (%) (Auto) 0, Basophils (%) (Auto) 0, Neutrophils # (Auto) 3.6, Lymphocytes # (Auto) 0.6L, Monocytes # (Auto) 0.7, Eosinophils # (Auto) 0.0, Basophils # (Auto) 0.0, Sodium Level 136, Potassium Level 4.5, Chloride Level 104, Carbon Dioxide Level 26, Anion Gap 6, Blood Urea Nitrogen 9, Creatinine 0.71, Estimat Glomerular Filtration Rate > 60, BUN/ Creatinine Ratio 13, Glucose Level 96, Calcium Level 8.7, Corrected Calcium 9.0 , Total Bilirubin 0.2, Aspartate Amino Transf (AST/SGOT) 12, Alanine Aminotransferase (ALT/SGPT) 7, Alkaline Phosphatase 139H, B-Type Natriuretic Peptide 605.4H, Total Protein 6.1L, Albumin 3.6, Triglycerides Level 79, Cholesterol Level 326H, LDL Cholesterol Direct 205H, VLDL Cholesterol 16, HDL Cholesterol 89H, Phenytoin (Dilantin) Level 17.8, Carbamazepine (Tegretol) Level 4.9 06/25/18 09:35: Ammonia 48H, Thyroid Stimulating Hormone (TSH) 0.35 06/26/18 05:45: White Blood Count 3.4L, Red Blood Count 3.10L, Hemoglobin 9.2L, Hematocrit 28L, Mean Corpuscular Volume 91, Mean Corpuscular Hemoglobin 30, Mean Corpuscular Hemoglobin Concent 33, Red Cell Distribution Width 14.1, Platelet Count 173, Mean Platelet Volume 8.5, Neutrophils (%) (Auto) 62, Lymphocytes (%) (Auto) 19, Monocytes (%) (Auto) 19H, Eosinophils (%) (Auto) 0, Basophils (%) (Auto) 0, Neutrophils # (Auto) 2.1, Lymphocytes # (Auto) 0.7L, Monocytes # (Auto) 0.7, Eosinophils # (Auto) 0.0, Basophils # (Auto) 0.0, Sodium Level 138, Potassium Level 4.0, Chloride Level 103, Carbon Dioxide Level 24, Anion Gap 11, Blood Urea Nitrogen 6L, Creatinine 0.70, Estimat Glomerular Filtration Rate > 60, BUN/ Creatinine Ratio 9, Glucose Level 101, Calcium Level 8.3L, Corrected Calcium 8.7 , Total Bilirubin 0.2, Aspartate Amino Transf (AST/SGOT) 11, Alanine Aminotransferase (ALT/SGPT) 7, Alkaline Phosphatase 124, Total Protein 6.1L, Albumin 3.5 Microbiology 06/24/18 Blood Culture - Preliminary, Resulted No growth 06/24/18 Urine Culture - Final, Complete NO GROWTH Laboratory Tests 06/24/18 19:05 06/25/18 05:41 06/26/18 05:45 Pending Labs Microbiology Date/Time Source Procedure Growth Status 06/24/18 19:19 [place] Blood Culture - Preliminary No growth Resulted 06/24/18 19:05 Peripheral Lt Hand Blood Culture - Preliminary No growth Resulted 06/24/18 19:16 Urine Straight Cath, In/Out Urine Culture - Final NO GROWTH Complete Laboratory Tests 06/24/18 19:05: White Blood Count 3.6, Red Blood Count 3.37, Hemoglobin 10.0, Hematocrit 31, Mean Corpuscular Volume 91, Mean Corpuscular Hemoglobin 30, Mean Corpuscular Hemoglobin Concent 33, Red Cell Distribution Width 14.4, Platelet Count 214, Mean Platelet Volume 8.5, Neutrophils (%) (Auto) 50, Lymphocytes (%) (Auto) 30, Monocytes (%) (Auto) 19, Eosinophils (%) (Auto) 0, Basophils (%) (Auto) 0, Neutrophils # (Auto) 1.8, Lymphocytes # (Auto) 1.1, Monocytes # (Auto) 0.7, Eosinophils # (Auto) 0.0, Basophils # (Auto) 0.0, Neutrophils % (Manual) 60, Lymphocytes % (Manual) 28, Monocytes % (Manual) 12, Eosinophils % (Manual) 0, Basophils % (Manual) 0, Band Neutrophils 0, Hypochromasia SLIGHT, Prothrombin Time 13.3, INR Comment 1.0, Activated Partial Thromboplast Time 35, D-Dimer 0.51 , Sodium Level 135, Potassium Level 4.6, Chloride Level 99, Carbon Dioxide Level 23, Anion Gap 13, Blood Urea Nitrogen 11, Creatinine 0.79, Estimat Glomerular Filtration Rate > 60, BUN/Creatinine Ratio 14, Glucose Level 102, Lactic Acid Level 2.22, Calcium Level 8.6, Corrected Calcium 8.6, Total Bilirubin 0.2, Aspartate Amino Transf (AST/SGOT) 12, Alanine Aminotransferase ( ALT/SGPT) 9, Alkaline Phosphatase 148, Troponin I < 0.028, Total Protein 7.0, Albumin 4.0 06/24/18 19:11: Glucometer 101 06/24/18 19:16: Urine Color YELLOW, Urine Clarity CLEAR, Urine pH 6.5, Urine Specific [place] 1.010, Urine Protein 1+, Urine Glucose (UA) NEGATIVE, Urine Ketones NEGATIVE, Urine Nitrite NEGATIVE, Urine Bilirubin NEGATIVE, Urine Urobilinogen NORMAL, Urine Leukocyte Esterase 1+, Urine RBC (Auto) NEGATIVE, Urine RBC RARE, Urine WBC 0-2, Urine Squamous Epithelial Cells 2-5, Urine Crystals NONE, Urine Bacteria NEGATIVE, Urine Casts NONE, Urine Mucus NEGATIVE, Urine Culture Indicated NO 06/24/18 20:42: Blood Gas Puncture Site R RAD, Blood Gas Patient Temperature 4L, Arterial Blood pH 7.33, Arterial Blood Partial Pressure CO2 52, Arterial Blood Partial Pressure O2 90, Arterial Blood HCO3 27, Arterial Blood Total CO2 28.9, Arterial Blood Oxygen Saturation 97, Arterial Blood Base Excess 1.9, Johan Test YES-POS, Blood Gas Ventilator Setting NO, Blood Gas Inspired Oxygen 97.9 06/24/18 22:50: Lactic Acid Level 0.63 06/25/18 05:41: White Blood Count 4.9, Red Blood Count 3.11, Hemoglobin 9.0, Hematocrit 28, Mean Corpuscular Volume 91, Mean Corpuscular Hemoglobin 29, Mean Corpuscular Hemoglobin Concent 32, Red Cell Distribution Width 14.5, Platelet Count 198, Mean Platelet Volume 8.2, Neutrophils (%) (Auto) 73, Lymphocytes (%) (Auto) 13, Monocytes (%) (Auto) 14, Eosinophils (%) (Auto) 0, Basophils (%) (Auto) 0, Neutrophils # (Auto) 3.6, Lymphocytes # (Auto) 0.6, Monocytes # (Auto) 0.7, Eosinophils # (Auto) 0.0, Basophils # (Auto) 0.0, Sodium Level 136, Potassium Level 4.5, Chloride Level 104, Carbon Dioxide Level 26, Anion Gap 6, Blood Urea Nitrogen 9, Creatinine 0.71, Estimat Glomerular Filtration Rate > 60, BUN/ Creatinine Ratio 13, Glucose Level 96, Calcium Level 8.7, Corrected Calcium 9.0 , Total Bilirubin 0.2, Aspartate Amino Transf (AST/SGOT) 12, Alanine Aminotransferase (ALT/SGPT) 7, Alkaline Phosphatase 139, B-Type Natriuretic Peptide 605.4, Total Protein 6.1, Albumin 3.6, Triglycerides Level 79, Cholesterol Level 326, LDL Cholesterol Direct 205, VLDL Cholesterol 16, HDL Cholesterol 89, Phenytoin (Dilantin) Level 17.8, Carbamazepine (Tegretol) Level 4.9 06/25/18 09:35: Ammonia 48, Thyroid Stimulating Hormone (TSH) 0.35, Gabapentin Level [Pending] 06/26/18 05:45: White Blood Count 3.4, Red Blood Count 3.10, Hemoglobin 9.2, Hematocrit 28, Mean Corpuscular Volume 91, Mean Corpuscular Hemoglobin 30, Mean Corpuscular Hemoglobin Concent 33, Red Cell Distribution Width 14.1, Platelet Count 173, Mean Platelet Volume 8.5, Neutrophils (%) (Auto) 62, Lymphocytes (%) (Auto) 19, Monocytes (%) (Auto) 19, Eosinophils (%) (Auto) 0, Basophils (%) (Auto) 0, Neutrophils # (Auto) 2.1, Lymphocytes # (Auto) 0.7, Monocytes # (Auto) 0.7, Eosinophils # (Auto) 0.0, Basophils # (Auto) 0.0, Sodium Level 138, Potassium Level 4.0, Chloride Level 103, Carbon Dioxide Level 24, Anion Gap 11, Blood Urea Nitrogen 6, Creatinine 0.70, Estimat Glomerular Filtration Rate > 60, BUN/ Creatinine Ratio 9, Glucose Level 101, Calcium Level 8.3, Corrected Calcium 8.7 , Total Bilirubin 0.2, Aspartate Amino Transf (AST/SGOT) 11, Alanine Aminotransferase (ALT/SGPT) 7, Alkaline Phosphatase 124, Total Protein 6.1, Albumin 3.5 Discussion & Recommendations To be followed up in the office. Discharge Home Medications: Active Scripts Active Cefdinir 300 Mg Capsule 300 Mg PO BID Atorvastatin Calcium 20 Mg Tablet 20 Mg PO 0300 30 Days Reported Hydrocodone-Acetamin 7.5-325 (Hydrocodone/Acetaminophen) 1 Each Tablet 1 Tab PO TID PRN Meloxicam 7.5 Mg Tablet 7.5 Mg PO DAILY Ondansetron Odt (Ondansetron) 4 Mg Tab.rapdis 4 Mg PO TID PRN Omeprazole 20 Mg Capsule.dr 20 Mg PO DAILY PRN Advair Hfa 115-21 Mcg Inhaler (Fluticasone/Salmeterol) 12 Gm Hfa.aer.ad 2 Puff INH BID Atorvastatin Calcium 10 Mg Tablet 10 Mg PO 0300 LAST FILLED #90 01-20-18 Amlodipine Besylate 5 Mg Tablet 5 Mg PO 0800 LAST FILLED #90 12-25-17 Lamotrigine 25 Mg Tablet 25 Mg PO 1500,0300 Lisinopril 20 Mg Tablet 20 Mg PO 0300 LAST FILLED #90 12-25-17 Proair Hfa (Albuterol Sulfate) 1 Puff Puff 2 Puff IH Q6H PRN 1 PUFF = 90 MCG Spiriva (Tiotropium [place]) 1 Inh Aerp 1 Cap IH DAILY Albuterol Sulfate 2.5 Mg/3 Ml Vial.neb 2.5 Mg NEB QID Tegretol (Carbamazepine) 200 Mg Tablet 200 Mg PO 0800,2300,0300 Phenytoin Sodium Extended 100 Mg Capsule 100 Mg PO 2300 LAST FILLED A 90 DAY SUPPLY 12-22-17 Phenytoin Sodium Extended 100 Mg Capsule 200 Mg PO 0800,1500 LAST FILLED A 90 DAY SUPPLY 12-22-17 TAKES 2 (100 MG) CAPSULES Gabapentin 600 Mg Tablet 600 Mg PO 0800,1500 Gabapentin 300 Mg Capsule 300 Mg PO 2300 Lamotrigine 100 Mg Tablet 100 Mg PO 1500,2300 Instructions to patient/family Please see electronic discharge instructions given to patient. Clinical Quality Measures DVT/VTE Risk/Contraindication: Risk Factor Score Per Nursin RFS Level Per Nursing on Admit: 4+=Very High AMANDEEP GENAO DO Jun 29, 2018 07:03
== END 2018-06-26 14:26 | disposition home or self-care (01) | DRG 947 ==
LOC: EDUNIT# 19:02 → ER 19:03 → 4TH 20:23
PROVIDERS: ADMIT Family Medicine; ATTEND Family Medicine
DX: R41.82 Altered mental status, unspecified (principal); R47.81 Slurred speech; J18.1 Lobar pneumonia, unspecified organism; J96.10 Chronic respiratory failure, unspecified whether with hypoxia or hypercapnia; C34.92 Malignant neoplasm of unspecified part of left bronchus or lung; C79.51 Secondary malignant neoplasm of bone; I38 Endocarditis, valve unspecified; H53.9 Unspecified visual disturbance; E86.0 Dehydration; R42 Dizziness and giddiness; J43.9 Emphysema, unspecified; G47.30 Sleep apnea, unspecified; I10 Essential (primary) hypertension; E78.00 Pure hypercholesterolemia, unspecified; G62.9 Polyneuropathy, unspecified; G14 Postpolio syndrome; D64.9 Anemia, unspecified; G40.909 Epilepsy, unspecified, not intractable, without status epilepticus; R79.89 Other specified abnormal findings of blood chemistry; M19.91 Primary osteoarthritis, unspecified site; R01.1 Cardiac murmur, unspecified; F19.11 Other psychoactive substance abuse, in remission; F10.11 Alcohol abuse, in remission; T42.1X5A Adverse effect of iminostilbenes, initial encounter; T42.0X5A Adverse effect of hydantoin derivatives, initial encounter; Z87.891 Personal history of nicotine dependence; Z99.81 Dependence on supplemental oxygen; Z92.21 Personal history of antineoplastic chemotherapy; R29.6 Repeated falls
CPT/HCPCS: 36415; 51702; 70450; 71045; 71260; 72040; 76700; 80053; 80061; 80156; 80171; 80185; 81000; 82140; 82805; 82962; 83605; 83880; 84443; 84484; 85007; 85025; 85027; 85379; 85610; 85730; 87040; 87088; 93005; 93041; 94640; 94760

== ENCOUNTER → 2018-07-02 | Outpatient (CLI) | payer MEDICAID ==
[~2018-07-02] MED LIST changes: +HYDR-3816 PO
[2018-07-02 14:47] LABS: BASOPHILS % (AUTO) 0 % (0-10); EOSINOPHILS % (AUTO) 0 % (0-10); HEMATOCRIT 31 % (40-54); HEMOGLOBIN 9.9 G/DL (13.3-17.7); LYMPHOCYTES # (AUTO) 0.7 X 10^3 (1.0-4.0); LYMPHOCYTES % (AUTO) 21 % (12-44); MEAN CORPUSCULAR HEMOGLOBIN 29 PG (25-34); MEAN CORPUSCULAR HGB CONC 32 G/DL (32-36); MEAN CORPUSCULAR VOLUME 91 FL (80-99); MONOCYTES # (AUTO) 0.5 X 10^3 (0.0-1.0); MONOCYTES % (AUTO) 14 % (0-12); NEUTROPHILS # (AUTO) 2.2 X 10^3 (1.8-7.8); NEUTROPHILS % (AUTO) 65 % (42-75); PLATELET COUNT 196 10^3/uL (130-400); RED CELL DISTRIBUTION WIDTH 14.1 % (10.0-14.5); WHITE BLOOD COUNT 3.4 10^3/uL (4.3-11.0)
[2018-07-02 15:07] LABS: BUN/CREATININE RATIO 11; CARBON DIOXIDE 29 MMOL/L (21-32); CHLORIDE 98 MMOL/L (98-107); GFR ESTIMATED > 60; GLUCOSE 98 MG/DL (70-105); POTASSIUM 4.4 MMOL/L (3.6-5.0); SODIUM 135 MMOL/L (135-145)
--- NOTE | 2018-07-02 18:54 | Diagnostic Imaging Report ---
INDICATION: Difficulty breathing. TECHNIQUE: Two-view chest, 2:49 p.m. CORRELATION STUDY: 06/24/2018. FINDINGS: Right IJ Nytdtm-b-Iczf catheter tip over the low SVC. Heart size and mediastinum are stable. Vasculature is relatively normal on followup. Lung lo are hyperinflated. Areas of chronic atelectasis and/or scarring about the lung bases are present. However, overall lung bases appear improved in aeration. Likely chronic dislocation of the left shoulder with advanced degenerative changes of the shoulders. IMPRESSION: 1. Chronic changes of COPD with likely areas of fibrosis or chronic atelectasis at the lung bases. However, lung lo have overall improved aeration from prior study. Dictated by: Dictated on workstation # [id number]
== END ==
LOC: RAD 14:31
PROVIDERS: ATTEND Internal Medicine Critical Care Medicine
DX: C34.12 Malignant neoplasm of upper lobe, left bronchus or lung (principal); J44.1 Chronic obstructive pulmonary disease with (acute) exacerbation; J96.20 Acute and chronic respiratory failure, unspecified whether with hypoxia or hypercapnia; R91.8 Other nonspecific abnormal finding of lung field; J18.9 Pneumonia, unspecified organism; F17.201 Nicotine dependence, unspecified, in remission; Z95.828 Presence of other vascular implants and grafts
CPT/HCPCS: 36415; 71046; 80048; 85025

== ENCOUNTER → 2018-07-14 | Outpatient (CLI) | payer MEDICAID ==
[~2018-07-14] MED LIST changes: +CATHETER FLUSH 10 ML SYR IV PRN; +HOLD METFORMIN - RECEIVED CONTRAST 20 ML VIAL IV SCH; +IOHEXOL 350 MG/ML 100 ML (OMNIPAQUE 350) VIAL IV ONE
--- NOTE | 2018-07-14 13:02 | Diagnostic Imaging Report ---
PROCEDURE: CT chest and abdomen with contrast. TECHNIQUE: Multiple contiguous axial images were obtained through the chest and abdomen after the administration of intravenous contrast. Auto Exposure Controls were utilized during the CT exam to meet ALARA standards for radiation dose reduction. INDICATION: [id number] lung carcinoma. COMPARISON: Correlation is made with prior CT chest from 06/24/[address] abdomen from 05/05/2018. CT chest: A right chest wall port has the tip within the SVC. No axillary lymphadenopathy is detected. No definite hilar or mediastinal lymphadenopathy is identified. No pericardial or pleural fluid is detected. Centrilobular emphysematous changes throughout both lungs are again noted. Airspace infiltrate in bilateral lower lobes does appear to be improved but remains present when compared with exam from three weeks earlier. There is also some minimal new infiltrate identified in the posterior right upper lobe. Previously noted tiny nodule in the right upper lobe is less prominent on today's study. Lytic lesion in the right humeral head appears stable. IMPRESSION: 1. Partial clearing of bilateral lower lobe airspace pulmonary infiltrates. There is some minimal new infiltrate in the posterior right upper lobe. Features remain most suggestive of pneumonia. CT abdomen: No focal liver mass is identified. Gallbladder is surgically absent. No biliary ductal dilatation is seen. Pancreas and spleen are unremarkable. No adrenal mass is detected. The kidneys are unremarkable. Aorta is heavily calcified but nonaneurysmal. No central retroperitoneal or mesenteric lymphadenopathy is seen. The bowel loops are normal in caliber. There is no ascites. Bony structures appear nonacute. IMPRESSION: Stable CT of the abdomen since exam from 05/05/2018. There is no evidence of abdominal metastatic disease. Dictated by: Dictated on workstation # [id number]
--- NOTE | 2018-07-14 17:11 | Diagnostic Imaging Report ---
INDICATION: [id number] lung carcinoma. TECHNIQUE: Patient was administered 26.0 mCi technetium 99m MDP intravenously and whole body imaging was performed after a three-hour delay. COMPARISON: Correlation is made with prior exam from 05/05/2018. FINDINGS: Normal uptake of activity by the axial and appendicular skeleton is noted. There is uptake by the kidneys with excretion into the urinary bladder. There are some degenerative changes involving bilateral knees and bilateral shoulders. Previously noted activity involving anterior right-sided ribs has resolved, consistent with healed rib fractures. There is a new slightly more linearly oriented area of uptake involving lower anterior right rib. This is more inferiorly located than previously noted rib fractures. This appears to involve approximately the right anterior eighth rib. No definite abnormality is seen on CT chest study performed earlier the same day. No other suspicious foci are identified. IMPRESSION: New region of somewhat longitudinally oriented activity along the anterior right approximately eighth rib, indeterminate. Area of metastatic disease cannot be excluded. No other suspicious abnormality is seen. Dictated by: Dictated on workstation # [id number]
== END ==
LOC: CARD 10:42
PROVIDERS: ATTEND Internal Medicine Hematology & Oncology
DX: Z01.89 Encounter for other specified special examinations (principal); C34.12 Malignant neoplasm of upper lobe, left bronchus or lung; C79.51 Secondary malignant neoplasm of bone
CPT/HCPCS: 71260; 74160; 78306

== ENCOUNTER 2018-07-20 13:16 | Outpatient (RCR) | payer MEDICAID ==
[2018-04-27 14:18] LABS: BASOPHILS % (AUTO) 0 % (0-10); EOSINOPHILS % (AUTO) 0 % (0-10); HEMATOCRIT 31 % (40-54); HEMOGLOBIN 10.1 G/DL (13.3-17.7); LYMPHOCYTES # (AUTO) 0.8 X 10^3 (1.0-4.0); LYMPHOCYTES % (AUTO) 15 % (12-44); MEAN CORPUSCULAR HEMOGLOBIN 30 PG (25-34); MEAN CORPUSCULAR HGB CONC 33 G/DL (32-36); MEAN CORPUSCULAR VOLUME 92 FL (80-99); MEAN PLATELET VOLUME 8.2 FL (7.4-10.4); MONOCYTES # (AUTO) 0.7 X 10^3 (0.0-1.0); MONOCYTES % (AUTO) 14 % (0-12); NEUTROPHILS # (AUTO) 3.7 X 10^3 (1.8-7.8); NEUTROPHILS % (AUTO) 70 % (42-75); PLATELET COUNT 327 10^3/uL (130-400); RED CELL DISTRIBUTION WIDTH 14.6 % (10.0-14.5); WHITE BLOOD COUNT 5.3 10^3/uL (4.3-11.0)
[2018-04-27 14:38] LABS: ALANINE AMINOTRANSFERASE 7 U/L (0-55); ALBUMIN 3.9 GM/DL (3.2-4.5); ALKALINE PHOSPHATASE 137 U/L (40-136); BILIRUBIN,TOTAL 0.2 MG/DL (0.1-1.0); BUN/CREATININE RATIO 12; CALCIUM 9.2 MG/DL (8.5-10.1); CARBON DIOXIDE 26 MMOL/L (21-32); CHLORIDE 99 MMOL/L (98-107); CREATININE SERUM 0.73 MG/DL (0.60-1.30); GFR ESTIMATED > 60; GLUCOSE 107 MG/DL (70-105); POTASSIUM 4.4 MMOL/L (3.6-5.0); SODIUM 135 MMOL/L (135-145); TOTAL PROTEIN 7.6 GM/DL (6.4-8.2)
[2018-05-11 14:17] LABS: BASOPHILS % (AUTO) 1 % (0-10); EOSINOPHILS % (AUTO) 0 % (0-10); HEMATOCRIT 33 % (40-54); HEMOGLOBIN 10.8 G/DL (13.3-17.7); LYMPHOCYTES # (AUTO) 0.9 X 10^3 (1.0-4.0); LYMPHOCYTES % (AUTO) 17 % (12-44); MEAN CORPUSCULAR HEMOGLOBIN 30 PG (25-34); MEAN CORPUSCULAR HGB CONC 33 G/DL (32-36); MEAN CORPUSCULAR VOLUME 92 FL (80-99); MEAN PLATELET VOLUME 7.9 FL (7.4-10.4); MONOCYTES # (AUTO) 0.9 X 10^3 (0.0-1.0); MONOCYTES % (AUTO) 17 % (0-12); NEUTROPHILS # (AUTO) 3.3 X 10^3 (1.8-7.8); NEUTROPHILS % (AUTO) 65 % (42-75); PLATELET COUNT 329 10^3/uL (130-400); WHITE BLOOD COUNT 5.1 10^3/uL (4.3-11.0)
[2018-05-11 14:35] LABS: ALANINE AMINOTRANSFERASE 7 U/L (0-55); ALKALINE PHOSPHATASE 175 U/L (40-136); BILIRUBIN,TOTAL 0.2 MG/DL (0.1-1.0); BUN/CREATININE RATIO 14; CALCIUM 9.1 MG/DL (8.5-10.1); CARBON DIOXIDE 23 MMOL/L (21-32); CHLORIDE 98 MMOL/L (98-107); CREATININE SERUM 0.77 MG/DL (0.60-1.30); GFR ESTIMATED > 60; GLUCOSE 102 MG/DL (70-105); POTASSIUM 4.7 MMOL/L (3.6-5.0); SODIUM 132 MMOL/L (135-145); TOTAL PROTEIN 7.4 GM/DL (6.4-8.2)
[2018-05-25 14:22] LABS: BASOPHILS % (AUTO) 0 % (0-10); EOSINOPHILS % (AUTO) 0 % (0-10); HEMATOCRIT 29 % (40-54); HEMOGLOBIN 9.6 G/DL (13.3-17.7); LYMPHOCYTES # (AUTO) 1.4 X 10^3 (1.0-4.0); LYMPHOCYTES % (AUTO) 30 % (12-44); MEAN CORPUSCULAR HEMOGLOBIN 30 PG (25-34); MEAN CORPUSCULAR HGB CONC 33 G/DL (32-36); MEAN CORPUSCULAR VOLUME 91 FL (80-99); MEAN PLATELET VOLUME 8.5 FL (7.4-10.4); MONOCYTES # (AUTO) 0.9 X 10^3 (0.0-1.0); MONOCYTES % (AUTO) 21 % (0-12); NEUTROPHILS # (AUTO) 2.2 X 10^3 (1.8-7.8); NEUTROPHILS % (AUTO) 49 % (42-75); PLATELET COUNT 193 10^3/uL (130-400); RED CELL DISTRIBUTION WIDTH 15.1 % (10.0-14.5); WHITE BLOOD COUNT 4.4 10^3/uL (4.3-11.0)
[2018-05-25 14:44] LABS: ALANINE AMINOTRANSFERASE 9 U/L (0-55); ALBUMIN 3.8 GM/DL (3.2-4.5); ALKALINE PHOSPHATASE 148 U/L (40-136); BILIRUBIN,TOTAL 0.4 MG/DL (0.1-1.0); BUN/CREATININE RATIO 11; CARBON DIOXIDE 26 MMOL/L (21-32); CHLORIDE 97 MMOL/L (98-107); CREATININE SERUM 0.71 MG/DL (0.60-1.30); GFR ESTIMATED > 60; GLUCOSE 98 MG/DL (70-105); POTASSIUM 4.6 MMOL/L (3.6-5.0); SODIUM 131 MMOL/L (135-145)
[2018-06-08 13:42] LABS: BASOPHILS % (AUTO) 0 % (0-10); EOSINOPHILS % (AUTO) 0 % (0-10); HEMATOCRIT 29 % (40-54); HEMOGLOBIN 9.6 G/DL (13.3-17.7); LYMPHOCYTES # (AUTO) 0.9 X 10^3 (1.0-4.0); LYMPHOCYTES % (AUTO) 26 % (12-44); MEAN CORPUSCULAR HEMOGLOBIN 29 PG (25-34); MEAN CORPUSCULAR HGB CONC 33 G/DL (32-36); MEAN CORPUSCULAR VOLUME 89 FL (80-99); MEAN PLATELET VOLUME 7.8 FL (7.4-10.4); MONOCYTES # (AUTO) 0.7 X 10^3 (0.0-1.0); MONOCYTES % (AUTO) 21 % (0-12); NEUTROPHILS # (AUTO) 1.8 X 10^3 (1.8-7.8); NEUTROPHILS % (AUTO) 53 % (42-75); PLATELET COUNT 230 10^3/uL (130-400); RED CELL DISTRIBUTION WIDTH 15.2 % (10.0-14.5); WHITE BLOOD COUNT 3.4 10^3/uL (4.3-11.0)
[2018-06-08 14:16] LABS: ALANINE AMINOTRANSFERASE 8 U/L (0-55); ALKALINE PHOSPHATASE 163 U/L (40-136); BILIRUBIN,TOTAL 0.3 MG/DL (0.1-1.0); BUN/CREATININE RATIO 16; CALCIUM 9.1 MG/DL (8.5-10.1); CARBON DIOXIDE 25 MMOL/L (21-32); CHLORIDE 97 MMOL/L (98-107); CREATININE SERUM 0.77 MG/DL (0.60-1.30); GFR ESTIMATED > 60; GLUCOSE 98 MG/DL (70-105); SODIUM 131 MMOL/L (135-145); TOTAL PROTEIN 7.3 GM/DL (6.4-8.2)
[2018-06-22 14:17] LABS: BASOPHILS % (AUTO) 0 % (0-10); EOSINOPHILS % (AUTO) 0 % (0-10); HEMATOCRIT 32 % (40-54); HEMOGLOBIN 10.1 G/DL (13.3-17.7); LYMPHOCYTES # (AUTO) 0.7 X 10^3 (1.0-4.0); LYMPHOCYTES % (AUTO) 17 % (12-44); MEAN CORPUSCULAR HEMOGLOBIN 29 PG (25-34); MEAN CORPUSCULAR HGB CONC 32 G/DL (32-36); MEAN CORPUSCULAR VOLUME 91 FL (80-99); MEAN PLATELET VOLUME 8.1 FL (7.4-10.4); MONOCYTES # (AUTO) 0.5 X 10^3 (0.0-1.0); MONOCYTES % (AUTO) 13 % (0-12); NEUTROPHILS # (AUTO) 2.7 X 10^3 (1.8-7.8); NEUTROPHILS % (AUTO) 70 % (42-75); PLATELET COUNT 205 10^3/uL (130-400); RED CELL DISTRIBUTION WIDTH 14.6 % (10.0-14.5); WHITE BLOOD COUNT 3.9 10^3/uL (4.3-11.0)
[2018-06-22 14:40] LABS: ALANINE AMINOTRANSFERASE 6 U/L (0-55); ALKALINE PHOSPHATASE 164 U/L (40-136); BILIRUBIN,TOTAL 0.3 MG/DL (0.1-1.0); BUN/CREATININE RATIO 15; CALCIUM 8.9 MG/DL (8.5-10.1); CARBON DIOXIDE 26 MMOL/L (21-32); CHLORIDE 98 MMOL/L (98-107); CREATININE SERUM 0.67 MG/DL (0.60-1.30); GFR ESTIMATED > 60; GLUCOSE 96 MG/DL (70-105); POTASSIUM 4.4 MMOL/L (3.6-5.0); SODIUM 131 MMOL/L (135-145); TOTAL PROTEIN 6.9 GM/DL (6.4-8.2)
[2018-07-06 14:57] LABS: BASOPHILS % (AUTO) 0 % (0-10); EOSINOPHILS % (AUTO) 0 % (0-10); HEMATOCRIT 32 % (40-54); HEMOGLOBIN 10.2 G/DL (13.3-17.7); LYMPHOCYTES # (AUTO) 0.8 X 10^3 (1.0-4.0); LYMPHOCYTES % (AUTO) 22 % (12-44); MEAN CORPUSCULAR HEMOGLOBIN 29 PG (25-34); MEAN CORPUSCULAR HGB CONC 32 G/DL (32-36); MEAN CORPUSCULAR VOLUME 90 FL (80-99); MEAN PLATELET VOLUME 8.1 FL (7.4-10.4); MONOCYTES # (AUTO) 0.5 X 10^3 (0.0-1.0); MONOCYTES % (AUTO) 13 % (0-12); NEUTROPHILS # (AUTO) 2.4 X 10^3 (1.8-7.8); NEUTROPHILS % (AUTO) 65 % (42-75); PLATELET COUNT 187 10^3/uL (130-400); RED CELL DISTRIBUTION WIDTH 14.1 % (10.0-14.5); WHITE BLOOD COUNT 3.8 10^3/uL (4.3-11.0)
[2018-07-06 15:19] LABS: ALANINE AMINOTRANSFERASE 10 U/L (0-55); ALBUMIN 4.2 GM/DL (3.2-4.5); ALKALINE PHOSPHATASE 161 U/L (40-136); BILIRUBIN,TOTAL 0.3 MG/DL (0.1-1.0); BUN/CREATININE RATIO 11; CALCIUM 9.4 MG/DL (8.5-10.1); CARBON DIOXIDE 27 MMOL/L (21-32); CHLORIDE 99 MMOL/L (98-107); CREATININE SERUM 0.75 MG/DL (0.60-1.30); GFR ESTIMATED > 60; GLUCOSE 121 MG/DL (70-105); POTASSIUM 4.8 MMOL/L (3.6-5.0); SODIUM 134 MMOL/L (135-145)
[~2018-07-20 13:16] MED LIST changes: -CATHETER FLUSH 10 ML SYR IV PRN; +FAMOTIDINE 20MG/2ML IV (CANCER CTR) IV SCH; -HOLD METFORMIN - RECEIVED CONTRAST 20 ML VIAL IV SCH; +HYDROcodone/APAP 5 MG/325 MG (LORTAB) CANCER CTR PO ONE; -IOHEXOL 350 MG/ML 100 ML (OMNIPAQUE 350) VIAL IV ONE; +NIVOLUMAB 240 MG in NS (IVPB) CANCER CENTER 50 ML IV SCH; +NS (IVPB) CANCER CENTER 250 ML ONE; +NS IV 1000 ML (CANCER CTR) IV SCH; +NS IV 500 ML (CANCER CENTER) 500 ML ONE; +ONDANSETRON MDV (CANCER CENTER 16 MG, DEXAMETHASONE INJ (CANCER CTR) 4 MG in NS (IVPB) ... IV SCH; +diphenhydrAMINE 25 MG TAB (BENADRYL) CANCER CENTER PO SCH
[2018-07-20 13:42] LABS: BASOPHILS % (AUTO) 0 % (0-10); EOSINOPHILS % (AUTO) 0 % (0-10); HEMATOCRIT 33 % (40-54); HEMOGLOBIN 10.3 G/DL (13.3-17.7); LYMPHOCYTES # (AUTO) 0.6 X 10^3 (1.0-4.0); LYMPHOCYTES % (AUTO) 11 % (12-44); MEAN CORPUSCULAR HEMOGLOBIN 28 PG (25-34); MEAN CORPUSCULAR HGB CONC 31 G/DL (32-36); MEAN CORPUSCULAR VOLUME 88 FL (80-99); MEAN PLATELET VOLUME 8.5 FL (7.4-10.4); MONOCYTES # (AUTO) 0.7 X 10^3 (0.0-1.0); MONOCYTES % (AUTO) 12 % (0-12); NEUTROPHILS # (AUTO) 4.4 X 10^3 (1.8-7.8); NEUTROPHILS % (AUTO) 78 % (42-75); PLATELET COUNT 254 10^3/uL (130-400); RED CELL DISTRIBUTION WIDTH 13.8 % (10.0-14.5); WHITE BLOOD COUNT 5.7 10^3/uL (4.3-11.0)
[2018-07-20] MEDS ORDERED: NS IV 500 ML (CANCER CENTER) 500 ML ONE (13:52)
[2018-07-20 13:59] LABS: ALANINE AMINOTRANSFERASE 9 U/L (0-55); ALBUMIN 4.1 GM/DL (3.2-4.5); ALKALINE PHOSPHATASE 162 U/L (40-136); BILIRUBIN,TOTAL 0.2 MG/DL (0.1-1.0); BUN/CREATININE RATIO 17; CALCIUM 8.8 MG/DL (8.5-10.1); CARBON DIOXIDE 28 MMOL/L (21-32); CHLORIDE 99 MMOL/L (98-107); CREATININE SERUM 0.72 MG/DL (0.60-1.30); GFR ESTIMATED > 60; GLUCOSE 101 MG/DL (70-105); POTASSIUM 4.8 MMOL/L (3.6-5.0); SODIUM 134 MMOL/L (135-145)
[2018-07-20] MEDS ORDERED: NIVOLUMAB 480 MG in NS (IVPB) CANCER CENTER 100 ML IV SCH (14:00)
[2018-07-24] MEDS ORDERED: CEFD300C3 PO (11:57)
== END 2018-07-26 | disposition home or self-care (01) ==
LOC: ONC 13:16
PROVIDERS: ATTEND Internal Medicine Hematology & Oncology
DX: Z51.11 Encounter for antineoplastic chemotherapy (principal); C34.12 Malignant neoplasm of upper lobe, left bronchus or lung; C79.51 Secondary malignant neoplasm of bone; D64.9 Anemia, unspecified; J43.9 Emphysema, unspecified; G40.909 Epilepsy, unspecified, not intractable, without status epilepticus; E78.5 Hyperlipidemia, unspecified; Z87.891 Personal history of nicotine dependence; Z79.899 Other long term (current) drug therapy
CPT/HCPCS: 36415; 36591; 80053; 82728; 83540; 84443; 85025; 96413; 99213

== ENCOUNTER 2018-07-21 22:15 | Inpatient (IN) | payer MEDICARE, MEDICAID | END 2018-07-24 13:50 | disposition home or self-care (01) | LOC: ICU 07-22 → ER 22:15 → 4TH 07-22 12:00 | PROC: 0BC38ZZ Extirpation of Matter from Right Main Bronchus, Via Natural or Artificial Opening Endoscopic (ICD-10-PCS; principal; 2018-07-23 07:37) | PROC: 0BC78ZZ Extirpation of Matter from Left Main Bronchus, Via Natural or Artificial Opening Endoscopic (ICD-10-PCS; 2018-07-23 07:37) | PROC: 0B9D8ZX Drainage of Right Middle Lung Lobe, Via Natural or Artificial Opening Endoscopic, Diagnostic (ICD-10-PCS; 2018-07-23 07:37) | PROC: 0BDD8ZX Extraction of Right Middle Lung Lobe, Via Natural or Artificial Opening Endoscopic, Diagnostic (ICD-10-PCS; 2018-07-23 07:37) | DX: J44.1 Chronic obstructive pulmonary disease with (acute) exacerbation (principal); J98.09 Other diseases of bronchus, not elsewhere classified; J18.1 Lobar pneumonia, unspecified organism; J44.0 Chronic obstructive pulmonary disease with (acute) lower respiratory infection; C34.90 Malignant neoplasm of unspecified part of unspecified bronchus or lung; C79.51 Secondary malignant neoplasm of bone; G81.94 Hemiplegia, unspecified affecting left nondominant side; B91 Sequelae of poliomyelitis; J30.2 Other seasonal allergic rhinitis; G47.30 Sleep apnea, unspecified; R01.1 Cardiac murmur, unspecified; E78.00 Pure hypercholesterolemia, unspecified; I10 Essential (primary) hypertension; G62.9 Polyneuropathy, unspecified; G40.909 Epilepsy, unspecified, not intractable, without status epilepticus; R42 Dizziness and giddiness; R53.1 Weakness; R29.6 Repeated falls; M19.91 Primary osteoarthritis, unspecified site; R47.81 Slurred speech; J98.4 Other disorders of lung; Z99.81 Dependence on supplemental oxygen; Z79.52 Long term (current) use of systemic steroids; Z79.899 Other long term (current) drug therapy; Z87.891 Personal history of nicotine dependence; Z91.19 Patient's noncompliance with other medical treatment and regimen ==

== ENCOUNTER 2018-08-12 17:25 | Emergency (ER) | payer MEDICARE, MEDICAID ==
[~2018-08-12] VITALS: Ht 182.9 cm; Wt 77.1 kg
[~2018-08-12 17:25] MED LIST changes: -FAMOTIDINE 20MG/2ML IV (CANCER CTR) IV SCH; -HYDROcodone/APAP 5 MG/325 MG (LORTAB) CANCER CTR PO ONE; -NIVOLUMAB 240 MG in NS (IVPB) CANCER CENTER 50 ML IV SCH; -NS (IVPB) CANCER CENTER 250 ML ONE; -NS IV 1000 ML (CANCER CTR) IV SCH; -NS IV 500 ML (CANCER CENTER) 500 ML ONE; -ONDANSETRON MDV (CANCER CENTER 16 MG, DEXAMETHASONE INJ (CANCER CTR) 4 MG in NS (IVPB) ... IV SCH; -diphenhydrAMINE 25 MG TAB (BENADRYL) CANCER CENTER PO SCH
[2018-08-12 18:01] VITALS: BP 129/85
--- NOTE | 2018-08-12 18:18 | ED General ---
General Chief Complaint: General Problems/Pain Stated Complaint: PAIN BEHIND LEFT EAR, TROUBLE WALKING Nursing Triage Note: PT TO RM 8 BY WHEELCHAIR WITH COMPLAINT OF PAIN BEHIND LEFT EAR AND PAIN IN LOWER BACK. STATES PAIN STARTED TODAY. Nursing Sepsis Screen: No Definite Risk Source of Information: Patient Exam Limitations: No Limitations History of Present Illness Date Seen by Provider: August 12, 2018 Time Seen by Provider: 17:50 Allergies and Home Medications Allergies Coded Allergies: aspirin (Unverified Allergy, Mild, DOES NOT WORK WELL W/ OTHER MEDS, 03/09) ibuprofen (Unverified Allergy, Mild, 03/09/18) Home Medications Albuterol Sulfate 2.5 Mg/3 Ml Vial.neb, 2.5 MG NEB QID, (Reported) Albuterol Sulfate 1 Puff Puff, 2 PUFF IH Q6H PRN for SHORTNESS OF BREATH, ( Reported) 1 PUFF = 90 MCG Amlodipine Besylate 5 Mg Tablet, 5 MG PO 0800, (Reported) LAST FILLED #90 12-25-17 Atorvastatin Calcium 20 Mg Tablet, 20 MG PO 0300 Prescribed by: FRAN DELACRUZ on 06/26/18 1254 Carbamazepine 200 Mg Tablet, 200 MG PO 0800,2300,0300, (Reported) Carbamazepine 200 Mg Tablet, 400 MG PO 1500, (Reported) TAKES 2 (200 MG) TABLETS Cefdinir 300 Mg Capsule, 300 MG PO BID Prescribed by: FRAN DELACRUZ on 06/26/18 1254 Cefdinir 300 Mg Capsule, 300 MG PO BID Prescribed by: ERIN ETIENNE on 07/24/18 1157 Fluticasone/Salmeterol 12 Gm Hfa.aer.ad, 2 PUFF INH BID, (Reported) Gabapentin 300 Mg Capsule, 300 MG PO 2300, (Reported) Gabapentin 600 Mg Tablet, 600 MG PO 0800,1500, (Reported) Hydrocodone/Acetaminophen 1 Each Tablet, 1 TAB PO TID PRN for PAIN-MODERATE, ( Reported) Lamotrigine 100 Mg Tablet, 100 MG PO 1500,2300, (Reported) Lamotrigine 25 Mg Tablet, 25 MG PO 1500,0300, (Reported) Lisinopril 20 Mg Tablet, 20 MG PO 0300, (Reported) LAST FILLED #90 12-25-17 Meloxicam 7.5 Mg Tablet, 7.5 MG PO DAILY, (Reported) Omeprazole 20 Mg Capsule.dr, 20 MG PO DAILY PRN for HEARTBURN, (Reported) Ondansetron 4 Mg Tab.rapdis, 4 MG PO TID PRN for NAUSEA/VOMITING-1ST LINE, ( Reported) Phenytoin Sodium Extended 100 Mg Capsule, 200 MG PO 0800,1500, (Reported) LAST FILLED A 90 DAY SUPPLY 12-22-17 TAKES 2 (100 MG) CAPSULES Phenytoin Sodium Extended 100 Mg Capsule, 100 MG PO 2300, (Reported) LAST FILLED A 90 DAY SUPPLY 12-22-17 Tiotropium [place] 1 Inh Aerp, 1 CAP IH DAILY, (Reported) Past Hwbfgvo-Mllyrf-Pbsfyy Hx Patient Social History Alcohol Use: Past History Recreational Drug Use: Yes (not current, 15 years ago-ETOH and PO drugs) Drug of Choice: HX OF RX DRUG ABUSE, CLAIMS NONE 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 Smoking Status: Former Smoker Type Used: Cigars, Cigarettes Former Smoker, Quit: May 01, 2017 2nd Hand Smoke Exposure: No Recent Foreign Travel: No Contact w/Someone Who Travel: No Recent Infectious Disease Expo: No Recent Hopitalizations: Yes Immunizations Up To Date Tetanus Booster (TDap): Unknown PED Vaccines UTD: Yes Date of Influenza Vaccine: Apr 21, 2018 Seasonal Allergies Seasonal Allergies: Yes Past Medical History Surgeries: Yes (PORT RIGHT CHEST; CT GUIDED BX OF FEMUR; BILATERAL CATARACT SURGERY) Eye Surgery, Gallbladder Respiratory: Yes (METASTATIC LUNG CANCER DX 05/2017; COPD--O2 DEPENDENT ) Asthma, Pneumonia, Chronic Bronchitis, Sleep Apnea, COPD Currently Using CPAP: No Currently Using BIPAP: No Cardiac: Yes Heart Murmur, High Cholesterol, Hypertension, Valvular Heart Disease 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 ) Neuropathy, Seizure Disorder, Vertigo Reproductive Disorders: No Sexually Transmitted Disease: No HIV/AIDS: No Genitourinary: No Gastrointestinal: Yes (CHRONIC NAUSEA/VOMITING) Musculoskeletal: Yes Arthritis, Fractures Endocrine: No HEENT: No Loss of Vision: Denies Hearing Impairment: Denies Cancer: Yes Lung Did You Recieve Any Treatments: Yes What Type of Treatment Did You: Chemotherapy Psychosocial: No Integumentary: No Blood Disorders: No Adverse Reaction/Blood Tranf: No Family Medical History Hypercholesterolemia 19 FATHER Hypertension 19 FATHER Physical Exam Vital Signs Vital Signs - First Documented 08/12/18 17:27 Temp 98.5 Pulse 67 Resp 19 B/P (MAP) 143/80 (101) Pulse Ox 96 O2 Delivery Nasal Cannula O2 Flow Rate 2.00 Capillary Refill : Less Than 3 Seconds Height, Weight, BMI Height: 6'0" Weight: 170lbs. 9.0oz. [id number]; 22.5 BMI Method:Stated Procedures/Interventions Date of ETT Placement: Mar 09, 2017 Time of ETT Placement: 1811 Suture Size: 5-0 Progress/Results/Core Measures Suspected Sepsis Recent Fever Within 48 Hours: No Infection Criteria Present: None New/Unexplained Altered Menta: No Sepsis Screen: No Definite Risk SIRS Temperature:98.5 Pulse: 67 Respiratory Rate: 19 Blood Pressure 143 /80 Mean: 101 Results/Orders My Orders Orders - NESTOR AVILEZ Ct Head/Cervical Spine Wo (08/12/18 17:55) Vital Signs/I&O 08/12/18 17:27 Temp 98.5 Pulse 67 Resp 19 B/P (MAP) 143/80 (101) Pulse Ox 96 O2 Delivery Nasal Cannula O2 Flow Rate 2.00 Capillary Refill : Less Than 3 Seconds Blood Pressure Mean: 101 Departure Impression Primary Impression: Chronic pain Disposition: 01 HOME, SELF-CARE Condition: Stable/Unchanged Departure-Patient Inst. Decision time for Depature: 18:49 Referrals: AMANDEEP GENAO DO (PCP/Family) Primary Care Physician Patient Instructions: Chronic Pain (DC) Add. Discharge Instructions: Take medication as directed. Follow-up with your primary care provider as needed. Return back to the emergency room for worsening symptoms or concerns as needed. All discharge instructions reviewed with patient and/or family. Voiced understanding. Scripts Hydrocodone Bit/Acetaminophen (Hydrocodone/Acetaminophen 5/325mg Tablet) 1 Tab Tab 0.5 EACH PO Q4-6HR PRN for PAIN-MODERATE MDD 10 for 3 Days, #10 TAB Prov: NESTOR AVILEZ 08/12/18 NESTOR AVILEZ August 12, 2018 18:18
--- NOTE | 2018-08-12 18:39 | Diagnostic Imaging Report ---
PROCEDURE: CT head and CT cervical spine without contrast. TECHNIQUE: Multiple contiguous axial images were obtained through the brain and cervical spine without the use of intravenous contrast. Sagittal and coronal reformations through the cervical spine were then performed. Auto Exposure Controls were utilized during the CT exam to meet ALARA standards for radiation dose reduction. INDICATION: Head and neck pain. FINDINGS: CT HEAD: Comparison is made to study of 07/22/2018. Ventricles and sulci remain diffusely prominent. No hemorrhage is identified. There is asymmetric enlargement of the right lateral ventricle similar to previous study. Calvarium is intact. Visualized paranasal sinuses are clear. IMPRESSION: Stable asymmetric enlargement of lateral ventricles and diffuse volume loss. There is no evidence of acute intracranial abnormality. CT CERVICAL SPINE: Comparison is made to study of 03/09/2018. There is stable overall appearance of type II odontoid fracture. There may be mild increase in soft tissue thickening along the dorsal aspect of the fracture. Otherwise, advanced degenerative findings are seen throughout the cervical spine. No new fracture or malalignment is identified. IMPRESSION: Type II odontoid fracture similar to the previous examination although surrounding granulation tissue appears somewhat increased in thickness on the current examination. This could be positional although clinical correlation is recommended. If there are symptoms referrable to this region, consideration could be given to MRI to exclude spinal cord injury. Dictated by: Dictated on workstation # [id number]
[2018-08-12] MEDS ORDERED: ACHD5005 PO (18:50)
[2018-08-12] MEDS ORDERED: HYDROcodone/APAP 5 MG/325 MG (LORTAB) TAB PO ONE (19:00)
== END 2018-08-12 19:01 | disposition home or self-care (01) ==
LOC: EDUNIT# 17:25 → ER 17:27
DX: G89.29 Other chronic pain (principal); H92.02 Otalgia, left ear; J44.9 Chronic obstructive pulmonary disease, unspecified; E78.00 Pure hypercholesterolemia, unspecified; I10 Essential (primary) hypertension; G40.909 Epilepsy, unspecified, not intractable, without status epilepticus; G62.9 Polyneuropathy, unspecified; Z92.21 Personal history of antineoplastic chemotherapy; Z82.49 Family history of ischemic heart disease and other diseases of the circulatory system; Z85.118 Personal history of other malignant neoplasm of bronchus and lung; Z86.12 Personal history of poliomyelitis; Z87.01 Personal history of pneumonia (recurrent); Z88.6 Allergy status to analgesic agent; Z79.51 Long term (current) use of inhaled steroids; Z87.891 Personal history of nicotine dependence; Z98.890 Other specified postprocedural states
CPT/HCPCS: 70450; 72125

== ENCOUNTER 2018-09-04 07:19 | Emergency (ER) | payer MEDICARE, MEDICAID ==
[~2018-09-04] VITALS: Ht 182.9 cm; Wt 77.1 kg
[~2018-09-04 07:19] MED LIST changes: +ACHD5005 PO
--- NOTE | 2018-09-04 07:45 | ED Fall/Injury ---
General Chief Complaint: Trauma-Non Activation Stated Complaint: FALL Nursing Triage Note: fall Source: patient, EMS Exam Limitations: no limitations History of Present Illness Date Seen by Provider: Sep 04, 2018 Time Seen by Provider: 07:17 Initial Comments This 63-year-old gentleman presents to the emergency room by private vehicle after having a fall at home and striking his head on a pool table. He has some neck pain but refused c-collar. He also has pain on the left foot and ankle. Patient states the water container on his oxygen concentrator with dry. The machine shuts off when that happens so he was likely hypoxic at the time of the fall. He reports he was leaning over to tend to the concentrator when he fell. There was no loss of consciousness. Patient has numerous health problems including COPD, post polio syndrome, and lung cancer. He has frequent falls. Location Injury Occurred: home Allergies and Home Medications Allergies Coded Allergies: aspirin (Unverified Allergy, Mild, DOES NOT WORK WELL W/ OTHER MEDS, 09/04/18) ibuprofen (Unverified Allergy, Mild, 09/04/18) Home Medications Albuterol Sulfate 2.5 Mg/3 Ml Vial.neb, 2.5 MG NEB QID, (Reported) Albuterol Sulfate 1 Puff Puff, 2 PUFF IH Q6H PRN for SHORTNESS OF BREATH, (Reported) 1 PUFF = 90 MCG Amlodipine Besylate 5 Mg Tablet, 5 MG PO 0800, (Reported) LAST FILLED #90 18 Atorvastatin Calcium 20 Mg Tablet, 20 MG PO 0300 Prescribed by: FRAN DELACRUZ on 06/26/18 1254 Carbamazepine 200 Mg Tablet, 200 MG PO 0800,2300,0300, (Reported) Carbamazepine 200 Mg Tablet, 400 MG PO 1500, (Reported) TAKES 2 (200 MG) TABLETS Cefdinir 300 Mg Capsule, 300 MG PO BID Prescribed by: FRAN DELACRUZ on 06/26/18 1254 Cefdinir 300 Mg Capsule, 300 MG PO BID Prescribed by: ERIN ETIENNE on 07/24/18 1157 Fluticasone/Salmeterol 12 Gm Hfa.aer.ad, 2 PUFF INH BID, (Reported) Gabapentin 300 Mg Capsule, 300 MG PO 2300, (Reported) Gabapentin 600 Mg Tablet, 600 MG PO 0800,1500, (Reported) Hydrocodone Bit/Acetaminophen 1 Tab Tab, 0.5 EACH PO Q4-6HR PRN for PAIN- MODERATE Prescribed by: NESTOR AVILEZ on 08/12/18 1850 Hydrocodone/Acetaminophen 1 Each Tablet, 1 TAB PO TID PRN for PAIN-MODERATE, (Reported) Lamotrigine 100 Mg Tablet, 100 MG PO 1500,2300, (Reported) Lamotrigine 25 Mg Tablet, 25 MG PO 1500,0300, (Reported) Lisinopril 20 Mg Tablet, 20 MG PO 0300, (Reported) LAST FILLED #90 12-25-17 Meloxicam 7.5 Mg Tablet, 7.5 MG PO DAILY, (Reported) Omeprazole 20 Mg Capsule.dr, 20 MG PO DAILY PRN for HEARTBURN, (Reported) Ondansetron 4 Mg Tab.rapdis, 4 MG PO TID PRN for NAUSEA/VOMITING-1ST LINE, (Reported) Phenytoin Sodium Extended 100 Mg Capsule, 200 MG PO 0800,1500, (Reported) LAST FILLED A 90 DAY SUPPLY 12-22-17 TAKES 2 (100 MG) CAPSULES Phenytoin Sodium Extended 100 Mg Capsule, 100 MG PO 2300, (Reported) LAST FILLED A 90 DAY SUPPLY 12-22-17 Tiotropium [place] 1 Inh Aerp, 1 CAP IH DAILY, (Reported) Patient Home Medication List Home Medication List Reviewed: Yes Review of Systems Review of Systems Constitutional: no symptoms reported Eyes: No Symptoms Reported Ears, Nose, Mouth, Throat: no symptoms reported Respiratory: see HPI Cardiovascular: no symptoms reported Gastrointestinal: no symptoms reported Genitourinary: no symptoms reported Musculoskeletal: see HPI Skin: no symptoms reported Psychiatric/Neurological: See HPI (post polio syndrome) Past Zqyhmuh-Armtur-Rslvbd Hx Past Med/Social Hx: Reviewed and Corrections made Patient Social History Alcohol Use: Denies Use Recreational Drug Use: No Drug of Choice: HX OF RX DRUG ABUSE, CLAIMS NONE 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 Smoking Status: Former Smoker Type Used: Cigars, Cigarettes Former Smoker, Quit: May 01, 2017 2nd Hand Smoke Exposure: No Recent Foreign Travel: No Contact w/Someone Who Travel: No Recent Infectious Disease Expo: No Recent Hopitalizations: No Immunizations Up To Date Tetanus Booster (TDap): Unknown PED Vaccines UTD: Yes Date of Influenza Vaccine: Apr 21, 2018 Seasonal Allergies Seasonal Allergies: Yes Past Medical History Surgeries: Yes (PORT RIGHT CHEST; CT GUIDED BX OF FEMUR; BILATERAL CATARACT SURGERY) Eye Surgery, Gallbladder Respiratory: Yes Asthma, Pneumonia, Chronic Bronchitis, Sleep Apnea, COPD (dependent on supplemental oxygen) Currently Using CPAP: No Currently Using BIPAP: No Cardiac: Yes Heart Murmur, High Cholesterol, Hypertension, Valvular Heart Disease 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) Neuropathy, Seizure Disorder, Vertigo Reproductive Disorders: No Sexually Transmitted Disease: No HIV/AIDS: No Genitourinary: No Gastrointestinal: Yes (CHRONIC NAUSEA/VOMITING) Musculoskeletal: Yes (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) Arthritis, Fractures Endocrine: No HEENT: No Loss of Vision: Denies Hearing Impairment: Denies Cancer: Yes Lung Did You Recieve Any Treatments: Yes What Type of Treatment Did You: Chemotherapy Psychosocial: No Integumentary: No Blood Disorders: No Adverse Reaction/Blood Tranf: No Family Medical History Reviewed Nursing Family Hx Hypercholesterolemia 19 FATHER Hypertension 19 FATHER Physical Exam Vital Signs Vital Signs - First Documented 09/04/18 07:23 Temp 97.7 Pulse 76 Resp 18 B/P (MAP) 160/87 (111) Pulse Ox 97 O2 Delivery Nasal Cannula O2 Flow Rate 4.00 Capillary Refill : Less Than 3 Seconds Height, Weight, BMI Height: 6'0" Weight: 170lbs. 0oz. 77.230159kk; 22.5 BMI Method:Stated General Appearance: WD/WN, no apparent distress HEENT: PERRL/EOMI, normal ENT inspection Neck: non-tender, normal inspection Cardiovascular: regular rate, rhythm, no edema, no murmur Respiratory: no respiratory distress, no accessory muscle use, wheezing (mild) Gastrointestinal: normal bowel sounds, non tender, soft Extremities: no pedal edema, other (tenderness of the left foot and ankle. Chronic deformity of the left foot. Small abrasion at the base of the fifth left toe) Neurologic/Psychiatric: patient biller II-XII nml as tested, alert, normal mood/affect, oriented x 3, motor weakness (left side secondary to polio) Skin: normal color, warm/dry Procedures/Interventions Date of ETT Placement: Mar 09, 2017 Time of ETT Placement: 1811 Suture Size: 5-0 Progress/Results/Core Measures Results/Orders Lab Results Laboratory Tests Test 09/04/18 08:00 09/04/18 08:54 Range/Units White Blood Count 5.5 4.3-11.0 10^3/uL Red Blood Count 3.84 L 4.35-5.85 10^6/uL Hemoglobin 10.1 L 13.3-17.7 G/DL Hematocrit 32 L 40-54 % Mean Corpuscular Volume 84 80-99 FL Mean Corpuscular Hemoglobin 26 25-34 PG Mean Corpuscular Hemoglobin Concent 31 L 32-36 G/DL Red Cell Distribution Width 14.5 10.0-14.5 % Platelet Count 209 130-400 10^3/uL Mean Platelet Volume 8.6 7.4-10.4 FL Neutrophils (%) (Auto) 74 42-75 % Lymphocytes (%) (Auto) 11 L 12-44 % Monocytes (%) (Auto) 15 H 0-12 % Eosinophils (%) (Auto) 0 0-10 % Basophils (%) (Auto) 0 0-10 % Neutrophils # (Auto) 4.1 1.8-7.8 X 10^3 Lymphocytes # (Auto) 0.6 L 1.0-4.0 X 10^3 Monocytes # (Auto) 0.8 0.0-1.0 X 10^3 Eosinophils # (Auto) 0.0 0.0-0.3 10^3/uL Basophils # (Auto) 0.0 0.0-0.1 10^3/uL Sodium Level 135 135-145 MMOL/L Potassium Level 4.5 3.6-5.0 MMOL/L Chloride Level 98 98-107 MMOL/L Carbon Dioxide Level 29 21-32 MMOL/L Anion Gap 8 5-14 MMOL/L Blood Urea Nitrogen 11 7-18 MG/DL Creatinine 0.72 0.60-1.30 MG/DL Estimat Glomerular Filtration Rate > 60 BUN/Creatinine Ratio 15 Glucose Level 114 H 70-105 MG/DL Calcium Level 8.8 8.5-10.1 MG/DL Corrected Calcium 8.8 8.5-10.1 MG/DL Total Bilirubin 0.2 0.1-1.0 MG/DL Aspartate Amino Transf (AST/SGOT) 12 5-34 U/L Alanine Aminotransferase (ALT/SGPT) 11 0-55 U/L Alkaline Phosphatase 156 H 40-136 U/L Total Protein 6.7 6.4-8.2 GM/DL Albumin 4.0 3.2-4.5 GM/DL Urine Color YELLOW Urine Clarity CLEAR Urine pH 7 5-9 Urine Specific [place] 1.010 L 1.016-1.022 Urine Protein NEGATIVE NEGATIVE Urine Glucose (UA) NEGATIVE NEGATIVE Urine Ketones NEGATIVE NEGATIVE Urine Nitrite NEGATIVE NEGATIVE Urine Bilirubin NEGATIVE NEGATIVE Urine Urobilinogen NORMAL NORMAL MG/DL Urine Leukocyte Esterase NEGATIVE NEGATIVE Urine RBC (Auto) NEGATIVE NEGATIVE Urine RBC NONE /HPF Urine WBC NONE /HPF Urine Squamous Epithelial Cells RARE /HPF Urine Crystals NONE /LPF Urine Bacteria NEGATIVE /HPF Urine Casts NONE /LPF Urine Mucus NEGATIVE /LPF Urine Culture Indicated NO My Orders Orders - STEFAN HERNANDEZ MD Ct Head/Cervical Spine Wo (09/04/18 07:30) Ed Iv/Invasive Line Start (09/04/18 07:30) Cbc With Automated Diff (09/04/18 07:30) Comprehensive Metabolic Panel (09/04/18 07:30) Ua Culture If Indicated (09/04/18 07:30) Monitor-Rhythm Ecg Trace Only (09/04/18 07:30) Dilantin (Phenytoin) (09/04/18 07:30) Chest 1 View, Ap/Pa Only (09/04/18 07:30) Foot, Left, 3 Views (09/04/18 07:30) Ankle, Left, 3 Views (09/04/18 07:30) Dipht,Pertuss(Acell),Tet Adult (Boostrix (09/04/18 09:15) Vital Signs/I&O 09/04/18 09/04/18 07:23 09:45 Temp 97.7 97.2 Pulse 76 78 Resp 18 16 B/P (MAP) 160/87 (111) 173/91 (118) Pulse Ox 97 99 O2 Delivery Nasal Cannula Nasal Cannula O2 Flow Rate 4.00 4.00 Blood Pressure Mean: 111 Progress Progress Note #1: Time: 07:44 Progress Note Patient was seen and examined upon arrival. Patient declined c-collar. CT of the head and C-spine as well as chest x-ray and foot and ankle x-rays are pending. Labs and UA will be obtained as patient has had multiple falls recently. Progress Note #2: Progress Note Radiologic studies demonstrated no injuries. Labs were fairly unremarkable. Patient seems to have debility and general weakness from his chronic conditions. I have advised physical therapy and use of assistive devices such as a walker which she does not use consistently. Patient was discharged home into the care of his . Diagnostic Imaging Diagonstic Imaging: CT Plain Films/CT/US/NM/MRI: c-spine, head Comments NAME: CR [facility]O [facility] REC#: [id number] PT STATUS: DEP ER : 1955 PHYSICIAN: STEFAN HERNANDEZ MD ADMIT DATE: 09/04/18/ER Signed Date of Exam: 09/04/18 CT HEAD/CERVICAL SPINE WO PROCEDURE: CT head and CT cervical spine without contrast. TECHNIQUE: Multiple contiguous axial images were obtained through the brain and cervical spine without the use of intravenous contrast. Sagittal and coronal reformations through the cervical spine were then performed. Auto Exposure Controls were utilized during the CT exam to meet ALARA standards for radiation dose reduction. INDICATION: Fall hitting the back of the head. Correlation is made with prior CT from 08/12/2018. CT head: Cerebral volume loss with asymmetry of the lateral ventricles, right larger appears similar to prior exam. No sulcal effacement, midline shift or hemorrhage is detected. Cisterns are patent. Visualized paranasal sinuses are clear. IMPRESSION: Stable chronic changes when compared to examination from 08/12/2018. No acute abnormality is detected. CT cervical spine: Overall positioning of the cervical spine appears similar with anterolisthesis of C3 on C4 and retrolisthesis of C6 on C7. Fracture through the base of the odontoid with some extension into the C2 vertebral body appears similar to 2 weeks earlier. Overall positioning of the fracture is very similar with only slight posterior displacement of the odontoid in relation to the body of C2. Central canal remains widely patent. No significant healing has occurred. No new fracture is identified. Severe degenerative disc disease seen at multiple levels, most marked at C5-6 and C6-7 levels with complete loss of the disc space and marginal osteophyte formation. Prevertebral tissues are normal. IMPRESSION: Stable appearance to the odontoid fracture since study from 08/12/2018. No significant healing has occurred. Diffuse cervical spondylosis is identified. No new fracture is detected. Dictated by: Dictated on workstation # [id number] Dict: 09/04/18 0845 Trans: 09/04/18 1553 Interpreted by: ALAN PAYNE MD Electronically signed by: ALAN APYNE MD 09/04/18 1553 Reviewed: Reviewed by Me Diagonstic Imaging: Xray Plain Films/CT/US/NM/MRI: other (left foot) Comments NAME: CR QUIJANO [facility] REC#: [id number] PT STATUS: DEP ER : 1955 PHYSICIAN: STEFAN HERNANDEZ MD ADMIT DATE: 09/04/18/ER Signed Date of Exam: 09/04/18 FOOT, LEFT, 3 VIEWS INDICATION: Fall. Pain. COMPARISON: None. FINDINGS: 3 views of the left foot demonstrate no acute fracture or dislocation. There is deformity of the distal fifth metatarsal consistent with old healed fracture. Moderate hallux valgus deformity is also noted. There are no focal osseous lesions. There is no soft tissue swelling. Joint spaces are well maintained. No radiopaque foreign bodies are seen. IMPRESSION: 1. No fractures or dislocations of the left foot. 2. Old healed fracture of the distal fifth metatarsal. Dictated by: Dictated on workstation # [id number] Dict: 09/04/18 0836 Trans: 09/04/18 1043 Interpreted by: IJEOMA KAHN MD Electronically signed by: IJEOMA KAHN MD 09/04/18 1043 Reviewed: Reviewed by Me Diagonstic Imaging: Xray Plain Films/CT/US/NM/MRI: chest Comments NAME: [facility] REC#: [id number] PT STATUS: DEP ER : 1955 PHYSICIAN: STEFAN HERNANDEZ MD ADMIT DATE: 09/04/18/ER Signed Date of Exam: 09/04/18 CHEST 1 VIEW, AP/PA ONLY INDICATION: Status post fall, trauma Frontal chest obtained at 8:19 a.m. and compared to 07/23/2018. Heart is borderline in size. Port-A-Cath is unchanged with tip overlying the SVC. Chronic increased markings in the right perihilar region and base appears similar to the prior study. There is no pneumothorax or pleural fluid. There are advanced degenerative changes of both shoulders. IMPRESSION: Chronic appearing increased right infrahilar markings are similar to 07/23/2018. There is no acute consolidation or pneumothorax or pleural fluid. Port-A-Cath is unchanged. Dictated by: Dictated on workstation # [id number] Dict: 09/04/18 0836 Trans: 09/04/18 1101 Interpreted by: TAYA GARCIA MD Electronically signed by: TAYA GARCIA MD 09/04/18 1101 Reviewed: Reviewed by Me Diagonstic Imaging: Xray Plain Films/CT/US/NM/MRI: ankle Comments NAME: [facility] REC#: [id number] PT STATUS: DEP ER : 1955 PHYSICIAN: STEFAN HERNANDEZ MD ADMIT DATE: 09/04/18/ER Signed Date of Exam: 09/04/18 ANKLE, LEFT, 3 VIEWS Indication: Fall with injury to the left ankle. Time of exam: 8:21 AM Three views of the left ankle were obtained. Alignment is normal. Ankle mortise is well maintained. Talar dome is smooth. No fracture or dislocation is identified. Impression: No acute bony abnormality is detected. Dictated by: Dictated on workstation # [id number] Dict: 09/04/18 0835 Trans: 09/04/18 1502 Interpreted by: ALAN PAYNE MD Electronically signed by: ALAN PAYNE MD 09/04/18 1502 Reviewed: Reviewed by Me Departure Impression Primary Impression: Fall on same level as cause of accidental injury Additional Impressions: Abrasion COPD exacerbation Injury of left foot Qualified Codes: S99.922A - Unspecified injury of left foot, initial encounter Minor head injury Qualified Codes: S09.90XA - Unspecified injury of head, initial encounter Disposition: 01 HOME, SELF-CARE Condition: Improved Departure-Patient Inst. Decision time for Depature: 09:19 Referrals: AMANDEEP GENAO DO (PCP/Family) Primary Care Physician Patient Instructions: Preventing Falls in the Older Adult Add. Discharge Instructions: Drink plenty of clear liquids. Use your oxygen and medications as prescribed. Ambulate with a walker for your safety. Please contact your primary care provider about arranging physical therapy. This may help improve your strength and balance. They may also teach you tactics to help prevent falls and proper use of adaptive equipment. Please arrange a follow-up appointment with your primary care provider soon as possible. Return to care if symptoms are worsening. All discharge instructions reviewed with patient and/or family. Voiced understanding. Copy Copies To 1: AMANDEEP GENAO JOSHUA T MD Sep 04, 2018 07:45
[2018-09-04 08:06] LABS: BASOPHILS % (AUTO) 0 % (0-10); EOSINOPHILS % (AUTO) 0 % (0-10); HEMATOCRIT 32 % (40-54); HEMOGLOBIN 10.1 G/DL (13.3-17.7); LYMPHOCYTES # (AUTO) 0.6 X 10^3 (1.0-4.0); LYMPHOCYTES % (AUTO) 11 % (12-44); MEAN CORPUSCULAR HEMOGLOBIN 26 PG (25-34); MEAN CORPUSCULAR HGB CONC 31 G/DL (32-36); MEAN CORPUSCULAR VOLUME 84 FL (80-99); MEAN PLATELET VOLUME 8.6 FL (7.4-10.4); MONOCYTES # (AUTO) 0.8 X 10^3 (0.0-1.0); MONOCYTES % (AUTO) 15 % (0-12); NEUTROPHILS # (AUTO) 4.1 X 10^3 (1.8-7.8); NEUTROPHILS % (AUTO) 74 % (42-75); PLATELET COUNT 209 10^3/uL (130-400); RED CELL DISTRIBUTION WIDTH 14.5 % (10.0-14.5); WHITE BLOOD COUNT 5.5 10^3/uL (4.3-11.0)
--- NOTE | 2018-09-04 08:12 | NUR ---
Patient to CT/Radiology via cart.
[2018-09-04 08:27] LABS: ALANINE AMINOTRANSFERASE 11 U/L (0-55); ALKALINE PHOSPHATASE 156 U/L (40-136); BILIRUBIN,TOTAL 0.2 MG/DL (0.1-1.0); BUN/CREATININE RATIO 15; CALCIUM 8.8 MG/DL (8.5-10.1); CARBON DIOXIDE 29 MMOL/L (21-32); CHLORIDE 98 MMOL/L (98-107); CREATININE SERUM 0.72 MG/DL (0.60-1.30); GFR ESTIMATED > 60; GLUCOSE 114 MG/DL (70-105); POTASSIUM 4.5 MMOL/L (3.6-5.0); SODIUM 135 MMOL/L (135-145); TOTAL PROTEIN 6.7 GM/DL (6.4-8.2)
--- NOTE | 2018-09-04 08:44 | Diagnostic Imaging Report ---
INDICATION: Fall. Pain. COMPARISON: None. FINDINGS: 3 views of the left foot demonstrate no acute fracture or dislocation. There is deformity of the distal fifth metatarsal consistent with old healed fracture. Moderate hallux valgus deformity is also noted. There are no focal osseous lesions. There is no soft tissue swelling. Joint spaces are well maintained. No radiopaque foreign bodies are seen. IMPRESSION: 1. No fractures or dislocations of the left foot. 2. Old healed fracture of the distal fifth metatarsal. Dictated by: Dictated on workstation # [id number]
--- NOTE | 2018-09-04 08:48 | Diagnostic Imaging Report ---
INDICATION: Status post fall, trauma Frontal chest obtained at 8:19 a.m. and compared to 07/23/2018. Heart is borderline in size. Port-A-Cath is unchanged with tip overlying the SVC. Chronic increased markings in the right perihilar region and base appears similar to the prior study. There is no pneumothorax or pleural fluid. There are advanced degenerative changes of both shoulders. IMPRESSION: Chronic appearing increased right infrahilar markings are similar to 07/23/2018. There is no acute consolidation or pneumothorax or pleural fluid. Port-A-Cath is unchanged. Dictated by: Dictated on workstation # [id number]
--- NOTE | 2018-09-04 08:48 | Diagnostic Imaging Report ---
Indication: Fall with injury to the left ankle. Time of exam: 8:21 AM Three views of the left ankle were obtained. Alignment is normal. Ankle mortise is well maintained. Talar dome is smooth. No fracture or dislocation is identified. Impression: No acute bony abnormality is detected. Dictated by: Dictated on workstation # [id number]
[2018-09-04 09:00] LABS: BILIRUBIN,URINE NEGATIVE (NEGATIVE); CLARITY,URINE CLEAR; COLOR,URINE YELLOW; GLUCOSE, URINE (UA) NEGATIVE (NEGATIVE); KETONES,URINE NEGATIVE (NEGATIVE); LEUKOCYTE ESTERASE ,URINE NEGATIVE (NEGATIVE); NITRITE,URINE NEGATIVE (NEGATIVE); PH,URINE 7 (5-9); PROTEIN,URINE NEGATIVE (NEGATIVE); UROBILINOGEN,URINE NORMAL (NORMAL)
--- NOTE | 2018-09-04 09:00 | Diagnostic Imaging Report ---
PROCEDURE: CT head and CT cervical spine without contrast. TECHNIQUE: Multiple contiguous axial images were obtained through the brain and cervical spine without the use of intravenous contrast. Sagittal and coronal reformations through the cervical spine were then performed. Auto Exposure Controls were utilized during the CT exam to meet ALARA standards for radiation dose reduction. INDICATION: Fall hitting the back of the head. Correlation is made with prior CT from 08/12/2018. CT head: Cerebral volume loss with asymmetry of the lateral ventricles, right larger appears similar to prior exam. No sulcal effacement, midline shift or hemorrhage is detected. Cisterns are patent. Visualized paranasal sinuses are clear. IMPRESSION: Stable chronic changes when compared to examination from 08/12/2018. No acute abnormality is detected. CT cervical spine: Overall positioning of the cervical spine appears similar with anterolisthesis of C3 on C4 and retrolisthesis of C6 on C7. Fracture through the base of the odontoid with some extension into the C2 vertebral body appears similar to 2 weeks earlier. Overall positioning of the fracture is very similar with only slight posterior displacement of the odontoid in relation to the body of C2. Central canal remains widely patent. No significant healing has occurred. No new fracture is identified. Severe degenerative disc disease seen at multiple levels, most marked at C5-6 and C6-7 levels with complete loss of the disc space and marginal osteophyte formation. Prevertebral tissues are normal. IMPRESSION: Stable appearance to the odontoid fracture since study from 08/12/2018. No significant healing has occurred. Diffuse cervical spondylosis is identified. No new fracture is detected. Dictated by: Dictated on workstation # [id number]
[2018-09-04 09:06] LABS: BACTERIA,URINE NEGATIVE /HPF; SQUAMOUS EPITHELIAL CELL,UR RARE /HPF
[2018-09-04] MEDS ORDERED: TETANUS,DIPTH,PERTUSS P/F (BOOSTRIX) 0.5 ML VIAL IM ONE (09:15)
--- NOTE | 2018-09-04 09:40 | NUR ---
LEFT SMALL TOE CLEANED WITH STERILE SALINE AND NEOSPORIN PLACED ON WOUND. NO BLEEDING PRESENT. BANDAGE PLACED ON SITE.
[2018-09-04 09:45] VITALS: BP 173/91
--- OUTSIDE RECORDS SUMMARY | 2018-09-04 12:26 | XMS REPORT ---
Author Author Migration, Doctor Organization [facility] Address Unknown Phone Unavailable Care Team Providers Care Hand Etcher Helper Name Role Phone Migration, Doctor Unavailable Unavailable PROBLEMS Type Condition ICD9-CM Code [id number] Code Onset Dates Condition Status SNOMED Code Problem Obstructive chronic bronchitis, with (acute) exacerbation 491.21 Active 484682287 Problem Nondependent tobacco use disorder 305.1 Active [id number] ALLERGIES No Information ENCOUNTERS Encounter Location Date Diagnosis [facility] [id number] [place] [phone] Feb, CAP (community acquired pneumonia) J18.9 [facility] [id number] [place] [id number] 14 Jun, 2014 [facility] [id number] [place] [phone] Jun, [facility] [id number] [place] [id number] Nov, [facility] [id number] [place] [id number] Nov, [facility] [id number] [place] [phone] July, IMMUNIZATIONS No Known Immunizations SOCIAL HISTORY Never Assessed REASON FOR VISIT [facility] PLAN OF CARE VITAL SIGNS MEDICATIONS No Known Medications RESULTS No Results PROCEDURES No Known procedures INSTRUCTIONS MEDICATIONS ADMINISTERED No Known Medications MEDICAL (GENERAL) HISTORY Type Description Date Surgical History cholecystectomy Hospitalization History pneumonia 2011
--- OUTSIDE RECORDS SUMMARY | 2018-09-04 12:26 | XMS REPORT | Clinical Summary ---
Author Author [facility] Organization [facility] Address Unknown Phone Unavailable Care Team Providers Care Fourth Grade Teacher Name Role Phone Efra Valentino MD Unavailable Source Comments Some departments are not documenting in the electronic medical record. If you d o not see the information that you expected, contact Release of Information in [facility] [employer] Information Management department at [phone] for further assistan ce in locating additional records.[facility] Allergies Comments Active Allergy Reactions [...] SHINGLES RECOMBINANT 07/17/2003 VACCINE (1 of 2) ABDOMINAL AORTIC ANEURYSM 2018 SCREENING PNEUMONIA (PCV13/PPSV23) 2018 VACCINES (1 of 2 - PCV13) INFLUENZA VACCINE 12/29/2018 Results Not on filefrom Last 3 Months
== END 2018-09-04 09:42 | disposition home or self-care (01) ==
LOC: EDUNIT# 07:19 → ER 07:22
DX: S09.90XA Unspecified injury of head, initial encounter (principal); S90.812A Abrasion, left foot, initial encounter; J44.1 Chronic obstructive pulmonary disease with (acute) exacerbation; G47.30 Sleep apnea, unspecified; E78.00 Pure hypercholesterolemia, unspecified; I10 Essential (primary) hypertension; G40.909 Epilepsy, unspecified, not intractable, without status epilepticus; G62.9 Polyneuropathy, unspecified; G14 Postpolio syndrome; Z85.118 Personal history of other malignant neoplasm of bronchus and lung; Z23 Encounter for immunization; Z82.49 Family history of ischemic heart disease and other diseases of the circulatory system; Z92.21 Personal history of antineoplastic chemotherapy; Z98.890 Other specified postprocedural states; Z87.01 Personal history of pneumonia (recurrent); Z79.51 Long term (current) use of inhaled steroids; Z87.891 Personal history of nicotine dependence; Z88.6 Allergy status to analgesic agent; Z99.81 Dependence on supplemental oxygen; W01.190A Fall on same level from slipping, tripping and stumbling with subsequent striking against furniture, initial encounter; Y92.009 Unspecified place in unspecified non-institutional (private) residence as the place of occurrence of the external cause
CPT/HCPCS: 36415; 70450; 71045; 72125; 73610; 73630; 80053; 80185; 81000; 85025; 90471; 90715; 93041

== ENCOUNTER 2018-09-04 17:07 | Inpatient (IN) | payer MEDICARE, MEDICAID ==
[~2018-09-04] VITALS: Ht 182.9 cm; Wt 80.4 kg
[2018-09-04] MEDS ORDERED: RT-ALBUTEROL/IPRATROPIUM 3 ML (DUONEB) VIAL ONE (17:11)
[2018-09-04] MEDS ORDERED: NS IV 1000 ML 1,000 ML IV ONE (17:19)
[2018-09-04] MEDS ORDERED: RT-ALBUTEROL/IPRATROPIUM 3 ML (DUONEB) VIAL INH ONE (17:30)
[2018-09-04] MEDS ORDERED: methylPREDNISolone 125 MG (Solu-MEDROL) VIAL IVP ONE (17:30)
[2018-09-04] MEDS ORDERED: RT-ALBUTEROL SULF 2.5 MG/3 ML PRE-MIX VIAL ONE (17:32)
[2018-09-04 17:37] LABS: ABG BASE EXCESS 5.3 MMOL/L (-2.5-2.5); ABG OXYGEN SATURATION 94 % (94-100); ABG PCO2 57 MMHG (35-45); ABG PH 7.35 (7.37-7.43); ABG PO2 94 MMHG (79-93); ABG TCO2 32.6 MMOL/L (21.0-31.0)
[2018-09-04 17:38] LABS: ALLENS TEST YES-POS; INSPIRED O2 3L; PATIENT TEMP 97.9; VENTILATOR NO
[2018-09-04 17:53] LABS: BASOPHILS % (AUTO) 0 % (0-10); EOSINOPHILS % (AUTO) 0 % (0-10); HEMATOCRIT 33 % (40-54); HEMOGLOBIN 10.4 G/DL (13.3-17.7); LYMPHOCYTES # (AUTO) 0.9 X 10^3 (1.0-4.0); LYMPHOCYTES % (AUTO) 14 % (12-44); MEAN CORPUSCULAR HEMOGLOBIN 26 PG (25-34); MEAN CORPUSCULAR HGB CONC 32 G/DL (32-36); MEAN CORPUSCULAR VOLUME 84 FL (80-99); MEAN PLATELET VOLUME 8.8 FL (7.4-10.4); MONOCYTES % (AUTO) 15 % (0-12); NEUTROPHILS % (AUTO) 72 % (42-75); PLATELET COUNT 221 10^3/uL (130-400); RED CELL DISTRIBUTION WIDTH 14.7 % (10.0-14.5)
[2018-09-04 18:05] LABS: BUN/CREATININE RATIO 15; CALCIUM 8.6 MG/DL (8.5-10.1); CARBON DIOXIDE 29 MMOL/L (21-32); CHLORIDE 97 MMOL/L (98-107); CREATININE SERUM 0.71 MG/DL (0.60-1.30); GFR ESTIMATED > 60; GLUCOSE 121 MG/DL (70-105); POTASSIUM 4.3 MMOL/L (3.6-5.0); SODIUM 133 MMOL/L (135-145)
[2018-09-04 18:27] VITALS: BP 188/97
--- NOTE | 2018-09-04 18:33 | ED Respiratory ---
General Chief Complaint: General Problems/Pain Stated Complaint: FALL Nursing Triage Note: PATIENT BROUGHT TO ER BY . RN ASSISTED PATIENT OUT OF VEHICLE INTO WHEELCHAIR AND TO ROOM 10. PATIENT WAS SEEN IN ER THIS MORNING FOR FREQUENT FALLS. PATIENT IS UNABLE TO WALK THIS AFTERNOON AND HAS INCREASED GENERALIZED WEAKNESS. PATIENT HAS SLURRED SPEECH PRESENT WITH NO FACIAL DROOPING. PATIENT IS ON OXYGEN AT 3 LPM VIA NASAL CANNULA. PATIENT HAS FREQUENT COUGH PRESENT. Source: patient Exam Limitations: no limitations History of Present Illness Date Seen by Provider: Sep 04, 2018 Time Seen by Provider: 17:10 Initial Comments This 63-year-old gentleman presents to the emergency room with weakness, slurred speech, and altered mental status. He is short of breath with tight wheezing. Patient was seen earlier today and thoroughly evaluated after having a fall. He has had multiple falls recently. The altered mental status and slurred speech are new since his visit this morning. Patient does have COPD. He did use a breathing treatment not long before coming to the emergency room. He has no fever. Allergies and Home Medications Allergies Coded Allergies: aspirin (Unverified Allergy, Mild, DOES NOT WORK WELL W/ OTHER MEDS, 09/04/18) ibuprofen (Unverified Allergy, Mild, 09/04/18) Home Medications Albuterol Sulfate 2.5 Mg/3 Ml Vial.neb, 2.5 MG NEB QID, (Reported) Albuterol Sulfate 1 Puff Puff, 2 PUFF IH Q6H PRN for SHORTNESS OF BREATH, (Repor jaret) 1 PUFF = 90 MCG Amlodipine Besylate 5 Mg Tablet, 5 MG PO 0800, (Reported) LAST FILLED #90 12-25-17 Atorvastatin Calcium 20 Mg Tablet, 20 MG PO 0300 Prescribed by: FRAN DELACRUZ on 06/26/18 1254 Carbamazepine 200 Mg Tablet, 200 MG PO 0800,2300,0300, (Reported) Carbamazepine 200 Mg Tablet, 400 MG PO 1500, (Reported) TAKES 2 (200 MG) TABLETS Cefdinir 300 Mg Capsule, 300 MG PO BID Prescribed by: FRAN DELACRUZ on 06/26/18 1254 Cefdinir 300 Mg Capsule, 300 MG PO BID Prescribed by: ERIN ETIENNE on 07/24/18 1157 Fluticasone/Salmeterol 12 Gm Hfa.aer.ad, 2 PUFF INH BID, (Reported) Gabapentin 300 Mg Capsule, 300 MG PO 2300, (Reported) Gabapentin 600 Mg Tablet, 600 MG PO 0800,1500, (Reported) Hydrocodone Bit/Acetaminophen 1 Tab Tab, 0.5 EACH PO Q4-6HR PRN for PAIN- MODERATE Prescribed by: NESTOR AVILEZ on 08/12/18 1850 Hydrocodone/Acetaminophen 1 Each Tablet, 1 TAB PO TID PRN for PAIN-MODERATE, (Reported) Lamotrigine 100 Mg Tablet, 100 MG PO 1500,2300, (Reported) Lamotrigine 25 Mg Tablet, 25 MG PO 1500,0300, (Reported) Lisinopril 20 Mg Tablet, 20 MG PO 0300, (Reported) LAST FILLED #90 12-25-17 Meloxicam 7.5 Mg Tablet, 7.5 MG PO DAILY, (Reported) Omeprazole 20 Mg Capsule.dr, 20 MG PO DAILY PRN for HEARTBURN, (Reported) Ondansetron 4 Mg Tab.rapdis, 4 MG PO TID PRN for NAUSEA/VOMITING-1ST LINE, (Reported) Phenytoin Sodium Extended 100 Mg Capsule, 200 MG PO 0800,1500, (Reported) LAST FILLED A 90 DAY SUPPLY 12-22-17 TAKES 2 (100 MG) CAPSULES Phenytoin Sodium Extended 100 Mg Capsule, 100 MG PO 2300, (Reported) LAST FILLED A 90 DAY SUPPLY 12-22-17 Tiotropium [place] 1 Inh Aerp, 1 CAP IH DAILY, (Reported) Patient Home Medication List Home Medication List Reviewed: Yes Review of Systems Review of Systems Constitutional: see HPI, weakness EENTM: no symptoms reported Respiratory: see HPI Cardiovascular: no symptoms reported Gastrointestinal: no symptoms reported Genitourinary: no symptoms reported Musculoskeletal: see HPI Skin: no symptoms reported Psychiatric/Neurological: See HPI Hematologic/Lymphatic: No Symptoms Reported Immunological/Allergic: no symptoms reported Past Zznesyi-Tykpsc-Shcxfn Hx Past Med/Social Hx: Reviewed Nursing Past Med/Soc Hx Patient Social History Alcohol Use: Denies Use Recreational Drug Use: Yes (not current, 15 years ago-ETOH and PO drugs) Drug of Choice: HX OF RX DRUG ABUSE, CLAIMS NONE 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 Smoking Status: Former Smoker Type Used: Cigars, Cigarettes Former Smoker, Quit: May 01, 2017 2nd Hand Smoke Exposure: No Recent Foreign Travel: No Contact w/Someone Who Travel: No Recent Infectious Disease Expo: No Recent Hopitalizations: No Immunizations Up To Date Tetanus Booster (TDap): Unknown PED Vaccines UTD: Yes Date of Influenza Vaccine: Apr 21, 2018 Seasonal Allergies Seasonal Allergies: Yes Past Medical History Surgeries: Yes (PORT RIGHT CHEST; CT GUIDED BX OF FEMUR; BILATERAL CATARACT SURGERY) Eye Surgery, Gallbladder Respiratory: Yes Asthma, Pneumonia, Chronic Bronchitis, Sleep Apnea, COPD Currently Using CPAP: No Currently Using BIPAP: No Cardiac: Yes Heart Murmur, High Cholesterol, Hypertension, Valvular Heart Disease 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) Neuropathy, Seizure Disorder, Vertigo Reproductive Disorders: No Sexually Transmitted Disease: No HIV/AIDS: No Genitourinary: No Gastrointestinal: Yes (CHRONIC NAUSEA/VOMITING) Musculoskeletal: Yes Arthritis, Fractures Endocrine: No HEENT: No Loss of Vision: Denies Hearing Impairment: Denies Cancer: Yes Lung Did You Recieve Any Treatments: Yes What Type of Treatment Did You: Chemotherapy Psychosocial: No Integumentary: No Blood Disorders: No Adverse Reaction/Blood Tranf: No Family Medical History Hypercholesterolemia 19 FATHER Hypertension 19 FATHER Physical Exam Vital Signs - First Documented 09/04/18 17:08 Temp 97.9 Pulse 77 Resp 20 B/P (MAP) 188/96 (126) Pulse Ox 99 O2 Delivery Nasal Cannula O2 Flow Rate 3.00 Capillary Refill : Less Than 3 Seconds Height: 6'0" Weight: 170lbs. 0oz. 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 He has slurred speech but actually answers questions appropriately. He appears to have global neurologic suppression) Skin: normal color, warm/dry Procedures/Interventions Date of ETT Placement: Mar 09, 2017 Time of ETT Placement: 1811 Suture Size: 5-0 Progress/Results/Core Measures Suspected Sepsis Recent Fever Within 48 Hours: No Infection Criteria Present: None New/Unexplained Altered Menta: No Sepsis Screen: No Definite Risk SIRS Temperature:97.9 Pulse: 68 Respiratory Rate: 20 Laboratory Tests 09/04/18 17:38: White Blood Count 7.0 Blood Pressure 188 /97 Mean: 126 Laboratory Tests 09/04/18 17:38: Creatinine 0.71, Platelet Count 221 Results/Orders Lab Results Laboratory Tests Test 09/04/18 17:20 09/04/18 17:38 Range/Units Blood Gas Puncture Site R RAD Blood Gas Patient Temperature 97.9 Arterial Blood pH 7.35 L 7.37-7.43 Arterial Blood Partial Pressure CO2 57 H 35-45 MMHG Arterial Blood Partial Pressure O2 94 H 79-93 MMHG Arterial Blood HCO3 31 H 23-27 MMOL/L Arterial Blood Total CO2 32.6 H 21.0-31.0 MMOL/L Arterial Blood Oxygen Saturation 94 94-100 % Arterial Blood Base Excess 5.3 H -2.5-2.5 MMOL/L Johan Test YES-POS Blood Gas Ventilator Setting NO Blood Gas Inspired Oxygen 3L White Blood Count 7.0 4.3-11.0 10^3/uL Red Blood Count 3.95 L 4.35-5.85 10^6/uL Hemoglobin 10.4 L 13.3-17.7 G/DL Hematocrit 33 L 40-54 % Mean Corpuscular Volume 84 80-99 FL Mean Corpuscular Hemoglobin 26 25-34 PG Mean Corpuscular Hemoglobin Concent 32 32-36 G/DL Red Cell Distribution Width 14.7 H 10.0-14.5 % Platelet Count 221 130-400 10^3/uL Mean Platelet Volume 8.8 7.4-10.4 FL Neutrophils (%) (Auto) 72 42-75 % Lymphocytes (%) (Auto) 14 12-44 % Monocytes (%) (Auto) 15 H 0-12 % Eosinophils (%) (Auto) 0 0-10 % Basophils (%) (Auto) 0 0-10 % Neutrophils # (Auto) 5.0 1.8-7.8 X 10^3 Lymphocytes # (Auto) 0.9 L 1.0-4.0 X 10^3 Monocytes # (Auto) 1.0 0.0-1.0 X 10^3 Eosinophils # (Auto) 0.0 0.0-0.3 10^3/uL Basophils # (Auto) 0.0 0.0-0.1 10^3/uL Sodium Level 133 L 135-145 MMOL/L Potassium Level 4.3 3.6-5.0 MMOL/L Chloride Level 97 L 98-107 MMOL/L Carbon Dioxide Level 29 21-32 MMOL/L Anion Gap 7 5-14 MMOL/L Blood Urea Nitrogen 11 7-18 MG/DL Creatinine 0.71 0.60-1.30 MG/DL Estimat Glomerular Filtration Rate > 60 BUN/Creatinine Ratio 15 Glucose Level 121 H 70-105 MG/DL Calcium Level 8.6 8.5-10.1 MG/DL My Orders Orders - STEFAN HERNANDEZ MD Albuterol/Ipra Inhalation Soln (Duoneb I (09/04/18 17:11) Chest 1 View, Ap/Pa Only (09/04/18 17:19) Ed Iv/Invasive Line Start (09/04/18 17:19) Arterial Blood Gas (09/04/18 17:19) Basic Metabolic Panel (09/04/18 17:19) Cbc With Automated Diff (09/04/18 17:19) Ns Iv 1000 Ml (Sodium Chloride 0.9%) (09/04/18 17:19) Albuterol/Ipra Inhalation Soln (Duoneb I (09/04/18 17:30) Svn Small Volume Nebulizer (09/04/18 17:19) Methylprednisolone Sod Succ (Solu-Medrol (09/04/18 17:30) Arterial Blood Gas (09/04/18 17:24) Albuterol Pre-Mix Nebs (Rt) (Proventil (09/04/18 17:32) Medications Given in ED Current Medications Medications Dose Ordered Sig/Porfirio Route Start Time Stop Time Status Last Admin Dose Admin Albuterol Sulfate 2.5 mg STK-MED ONCE .ROUTE 09/04/18 17:32 09/04/18 17:37 DC 09/04/18 17:41 2.5 MG Albuterol/ Ipratropium 3 ml ONCE ONCE INH 09/04/18 17:30 09/04/18 17:31 DC 09/04/18 17:41 3 ML Methylprednisolone Sodium Succinate 125 mg ONCE ONCE IVP 09/04/18 17:30 09/04/18 17:31 DC 09/04/18 17:52 125 MG Sodium Chloride 1,000 ml @ 0 mls/hr Q0M ONCE IV 09/04/18 17:19 09/04/18 17:21 DC 09/04/18 17:51 1,000 MLS/HR Vital Signs/I&O 09/04/18 09/04/18 09/04/18 17:08 17:42 17:44 Temp 97.9 Pulse 77 Resp 20 B/P (MAP) 188/96 (126) Pulse Ox 99 99 96 O2 Delivery Nasal Cannula Nasal Cannula Nasal Cannula O2 Flow Rate 3.00 4.00 4.00 Capillary Refill : Less Than 3 Seconds Blood Pressure Mean: 126 Progress Note : Progress Note Patient was started on an hour-long breathing treatment and was given Solu- Medrol. He had gradual improvement in his cognitive status. A liter of IV fluids was also infused. ABG was suggest hypercarbia. BiPAP was ordered prior to admission. Diagnostic Imaging Diagonstic Imaging: Xray Plain Films/CT/US/NM/MRI: chest Comments Chest x-ray viewed by me and report reviewed. See report below: NAME: [facility] REC#: [id number] PT STATUS: ADM IN : 1955 PHYSICIAN: STEFAN HERNANDEZ MD ADMIT DATE: 09/04/18 Draft Date of Exam:09/04/18 CHEST 1 VIEW, AP/PA ONLY INDICATION: Fall. Shortness of air, COPD. EXAMINATION: Single view of the chest. FINDINGS: The borderline cardiomegaly noted on the exam performed earlier today, at 8:19 a.m., is again evident and no different. The density in the right infrahilar region does seem somewhat more prominent than on the prior study and there may now be an element of mild pneumonia/atelectasis in this region. The central pulmonary vascularity is slightly engorged but there is no evidence for overt failure. The mediastinum is not widened. The osseous structures are intact. The right-sided PICC line remains unchanged in position. IMPRESSION: 1. The appearance of the chest has worsened somewhat since the prior study as there has been a slight increase in the density in the right infrahilar region. There may be an element of mild acute pneumonia/atelectasis in this area. Clinical followup is recommended. 2. The overall appearance of the chest has not changed significantly otherwise. Dictated on workstation # [id number] Dict: 09/04/18 1827 Trans: 09/04/18 1902 [facility] [id number] Interpreted by: FUAD KC MD Departure Communication (Admissions) Time/Spoke to Admitting Phy: 18:10 Dr. Swenson Impression Primary Impression: COPD exacerbation Additional Impression: Altered mental status Qualified Codes: R41.82 - Altered mental status, unspecified Disposition: ADMITTED INPATIENT Condition: Improved Admissions Decision to Admit Reason: Admit from ER (General) Decision to Admit/Date: Sep 04, 2018 Time/Decision to Admit Time: 17:45 Departure-Patient Inst. Referrals: AMANDEEP GENAO DO (PCP/Family) Primary Care Physician STEFAN HERNANDEZ MD Sep 04, 2018 18:33
--- NOTE | 2018-09-04 19:03 | Diagnostic Imaging Report ---
INDICATION: Fall. Shortness of air, COPD. EXAMINATION: Single view of the chest. FINDINGS: The borderline cardiomegaly noted on the exam performed earlier today, at 8:19 a.m., is again evident and no different. The density in the right infrahilar region does seem somewhat more prominent than on the prior study and there may now be an element of mild pneumonia/atelectasis in this region. The central pulmonary vascularity is slightly engorged but there is no evidence for overt failure. The mediastinum is not widened. The osseous structures are intact. The right-sided PICC line remains unchanged in position. IMPRESSION: 1. The appearance of the chest has worsened somewhat since the prior study as there has been a slight increase in the density in the right infrahilar region. There may be an element of mild acute pneumonia/atelectasis in this area. Clinical followup is recommended. 2. The overall appearance of the chest has not changed significantly otherwise. Dictated by: Dictated on workstation # [id number]
[2018-09-04 19:20] VITALS: BP 163/80
[2018-09-04] MEDS ORDERED: RT-ALBUTEROL SULF 2.5 MG/3 ML PRE-MIX VIAL IH PRN (19:30)
[2018-09-04] MEDS: NS IV 1000 ML 1,000 ML IV SCH (20:18)
[2018-09-04] MEDS: RT-ALBUTEROL/IPRATROPIUM 3 ML (DUONEB) VIAL IH SCH (21:59)
[2018-09-04] MEDS: GABAPENTIN 300 MG (NEURONTIN) CAP PO SCH (22:47)
[2018-09-04] MEDS: carBAMazepine 200 MG (TEGretol) TAB PO SCH (22:47)
[2018-09-04] MEDS: PHENYTOIN 100 MG (DILANTIN) CAP PO SCH (22:47)
[2018-09-04 23:20] VITALS: BP 153/67
[2018-09-05] MEDS: methylPREDNISolone 40 MG/ML (Solu-MEDROL) VIAL IV SCH ×5 (00:34→23:19)
[2018-09-05] MEDS: RT-ALBUTEROL/IPRATROPIUM 3 ML (DUONEB) VIAL IH SCH ×6 (02:54→22:17)
[2018-09-05] MEDS: lisINopril 20 MG (PRINIVIL) TABLET PO SCH (03:10)
[2018-09-05] MEDS: lamoTRIgine 25 MG (LaMICtal) TAB PO SCH ×2 (03:10→15:06)
[2018-09-05] MEDS: ATORVASTATIN 10 MG (LIPITOR) TABLET PO SCH (03:10)
[2018-09-05] MEDS: carBAMazepine 200 MG (TEGretol) TAB PO SCH ×4 (03:12→23:19)
[2018-09-05 04:00] VITALS: BP 141/76
[2018-09-05] MEDS: NS IV 1000 ML 1,000 ML IV SCH ×2 (04:15→11:54)
[2018-09-05 05:59] LABS: BASOPHILS % (AUTO) 0 % (0-10); EOSINOPHILS % (AUTO) 0 % (0-10); HEMATOCRIT 30 % (40-54); HEMOGLOBIN 9.3 G/DL (13.3-17.7); LYMPHOCYTES # (AUTO) 0.4 X 10^3 (1.0-4.0); LYMPHOCYTES % (AUTO) 7 % (12-44); MEAN CORPUSCULAR HEMOGLOBIN 26 PG (25-34); MEAN CORPUSCULAR HGB CONC 31 G/DL (32-36); MEAN CORPUSCULAR VOLUME 84 FL (80-99); MEAN PLATELET VOLUME 9.1 FL (7.4-10.4); MONOCYTES # (AUTO) 0.3 X 10^3 (0.0-1.0); MONOCYTES % (AUTO) 5 % (0-12); NEUTROPHILS # (AUTO) 4.7 X 10^3 (1.8-7.8); NEUTROPHILS % (AUTO) 88 % (42-75); PLATELET COUNT 198 10^3/uL (130-400); RED CELL DISTRIBUTION WIDTH 14.9 % (10.0-14.5); WHITE BLOOD COUNT 5.3 10^3/uL (4.3-11.0)
[2018-09-05 06:19] LABS: BUN/CREATININE RATIO 13; CALCIUM 8.8 MG/DL (8.5-10.1); CARBON DIOXIDE 27 MMOL/L (21-32); CHLORIDE 104 MMOL/L (98-107); CREATININE SERUM 0.69 MG/DL (0.60-1.30); GFR ESTIMATED > 60; GLUCOSE 116 MG/DL (70-105); POTASSIUM 4.8 MMOL/L (3.6-5.0); SODIUM 138 MMOL/L (135-145)
[2018-09-05 06:41] LABS: LYMPHOCYTES % (MANUAL) 7 %; MONOCYTES % (MANUAL) 3 %; NEUTROPHILS % (MANUAL) 90 %
[2018-09-05 08:00] VITALS: BP 151/73
[2018-09-05] MEDS: PHENYTOIN 100 MG (DILANTIN) CAP PO SCH ×3 (08:25→23:19)
[2018-09-05] MEDS: amLODIPine 5 MG (NORVASC) TAB PO SCH (08:26)
[2018-09-05] MEDS: GABAPENTIN 600 MG (NEURONTIN) TAB PO SCH ×2 (08:26→15:06)
--- NOTE | 2018-09-05 11:57 | History & Physical-Hospitalist ---
History of Present Illness HPI/Chief Complaint CC: Confusion with exacerbation of COPD HPI: This is a 63-year-old white male who is usually hospitalized every other [facility] here via [facility] who has a past medical history of lung cancer undergoing treatment but admitted frequently for exacerbation of COPD. Apparently had a fall yesterday became more confused and found to have slight hyponatremia but ABG showed CO2 retention so he was placed on IV steroids and BiPAP and patient was supported with telesitter due to impulsivity and fall risk. Patient appears to still be confused so will keep close monitoring for falls. Overall prognosis is very poor. Source: patient, RN/MD, old records Exam Limitations: clinical condition Date Seen 09/05/18 Time Seen by a Provider: 10:30 Attending Physician Micky Feng DO PCP Micky Feng DO Referring Physician Date of Admission Sep 04, 2018 at 18:22 Home Medications & Allergies Home Medications Reviewed patient Home Medication Reconciliation performed by pharmacy medication reconciliations certified phlebotomy technician and/or nursing. Patients Allergies have been reviewed. Allergies Allergies Coded Allergies aspirin (Unverified Allergy, Mild, DOES NOT WORK WELL W/ OTHER MEDS, 09/04/18) ibuprofen (Unverified Allergy, Mild, 09/04/18) Past Cobwjll-Npckmr-Qwrpni Hx Past Med/Social Hx: Reviewed Nursing Past Med/Soc Hx, Reviewed and Corrections made Patient Social History Marrital Status: cohabiting Employed/Student: unemployed Alcohol Use: Denies Use Recreational Drug Use: Yes (not current, 15 years ago-ETOH and PO drugs) Drug of Choice: HX OF RX DRUG ABUSE, CLAIMS NONE 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 Smoking Status: Former Smoker Former Smoker, Quit: May 01, 2017 Type Used: Cigars, Cigarettes 2nd Hand Smoke Exposure: No Recent Foreign Travel: No Contact w/other who traveled: No Recent Hopitalizations: No Recent Infectious Disease Expo: No Immunizations Up To Date Tetanus Booster (TDap): Unknown Pediatric: Yes Date of Influenza Vaccine: Apr 21, 2018 Seasonal Allergies Seasonal Allergies: Yes Past Medical History Surgeries: Eye Surgery, Gallbladder Respiratory: COPD, Emphysema, Pneumonia Currently Using CPAP: No Currently Using BIPAP: No Cardiac: Heart Murmur, High Cholesterol, Hypertension, Valvular Heart Disease Neurological: Neuropathy, Seizure Disorder, Vertigo Reproductive: No Sexually Transmitted Disease: No HIV/AIDS: No Musculoskeletal: Arthritis, Fractures Loss of Vision: Denies Hearing Impairment: Denies Cancer: Lung Did You Recieve Any Treatments: Yes What Type of Treatment Did You: Chemotherapy History of Blood Disorders: No Adverse Reaction to Blood Salcedo: No Family History Hypercholesterolemia 19 FATHER Hypertension 19 FATHER Review of Systems Constitutional: see HPI, dizziness, weakness Respiratory: short of breath, wheezing Physical Exam Physical Exam Vital Signs Vital Signs - First Documented 09/04/18 17:08 Temp 97.9 Pulse 77 Resp 20 B/P (MAP) 188/96 (126) Pulse Ox 99 O2 Delivery Nasal Cannula O2 Flow Rate 3.00 Capillary Refill : Less Than 3 SecondsLess Than 3 Seconds Height, Weight, BMI Height: 6'0.00" Weight: 178lbs. 2.0oz. 80.014430wk; 24.2 BMI Method:Stated General Appearance: No Apparent Distress, WD/WN, Chronically ill, Thin Eyes: Right Eye Normal Inspection, Right Eye PERRL HEENT: PERRL/EOMI, Normal ENT Inspection, Pharynx Normal, Moist Mucous Membranes Neck: Full Range of Motion, Normal Inspection, Non Tender Respiratory: Chest Non Tender, No Accessory Muscle Use, No Respiratory Distress, Crackles, Decreased Breath Sounds, Wheezing Cardiovascular: Regular Rate, Rhythm, No Edema, No Gallop, No JVD, No Murmur, Normal Peripheral Pulses Gastrointestinal: Normal Bowel Sounds, No Organomegaly, No Pulsatile Mass, Non Tender, Soft Back: Normal Inspection, No CVA Tenderness, No Vertebral Tenderness Extremity: Normal Capillary Refill, Normal Inspection, Normal Range of Motion, Non Tender, No Calf Tenderness, No Pedal Edema Neurologic/Psychiatric: Alert, No Motor/Sensory Deficits, Normal Mood/Affect, Disoriented Skin: Normal Color, Warm/Dry Lymphatic: No Adenopathy Results Results/Procedures Labs Laboratory Tests 09/04/18 17:38 09/05/18 05:40 Patient resulted labs reviewed. Assessment/Plan Admission Diagnosis Assessment: Chronic obstructive pulmonary disease with acute exacerbation. Confusion with fall Dependent on supplemental oxygen. Seizures. Essential hypertension. History of lobar pneumonia. 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 Former smoker Lipidemia. Weakness. History of fractured neck Plan: Monitor labs HLIVF Home meds IV steroids Admission Status: Inpatient Order (span 2 midnights) Reason for Inpatient Admission: Lung cancer with AECOPD Diagnosis/Problems Diagnosis/Problems (1) COPD exacerbation Status: Acute (2) Altered mental status Status: Acute Qualifiers: Altered mental status type: unspecified Qualified Codes: R41.82 - Altered mental status, unspecified (3) Hypoxia Status: Acute (4) Hx of seizure disorder Status: Chronic (5) Lung cancer metastatic to bone Status: Chronic (6) Generalized weakness Status: Acute (7) Seizure disorder Status: Chronic (8) Hyponatremia Status: Acute Clinical Quality Measures DVT/VTE Risk/Contraindication: Risk Factor Score Per Nursin RFS Level Per Nursing on Admit: 4+=Very High JAMIR ELLISON DO Sep 05, 2018 11:57
[2018-09-05 12:00] VITALS: BP 138/80
[2018-09-05] MEDS: MELOXICAM 7.5 MG (MOBIC) TABLET PO SCH (15:05)
[2018-09-05 15:25] VITALS: BP 149/70
[2018-09-05 19:33] VITALS: BP 143/76
[2018-09-05] MEDS: RT-ADVAIR HFA 115/21 MCG PER PUFF IH SCH (22:13)
[2018-09-05] MEDS: GABAPENTIN 300 MG (NEURONTIN) CAP PO SCH (23:19)
[2018-09-05 23:40] VITALS: BP 129/67
[2018-09-06] MEDS: RT-ALBUTEROL/IPRATROPIUM 3 ML (DUONEB) VIAL IH SCH ×6 (02:06→21:38)
[2018-09-06] MEDS: ATORVASTATIN 10 MG (LIPITOR) TABLET PO SCH (03:27)
[2018-09-06] MEDS: lisINopril 20 MG (PRINIVIL) TABLET PO SCH (03:27)
[2018-09-06] MEDS: lamoTRIgine 25 MG (LaMICtal) TAB PO SCH ×2 (03:27→15:21)
[2018-09-06] MEDS: carBAMazepine 200 MG (TEGretol) TAB PO SCH ×4 (03:27→23:36)
[2018-09-06 04:45] VITALS: BP 156/74
[2018-09-06] MEDS: methylPREDNISolone 40 MG/ML (Solu-MEDROL) VIAL IV SCH ×4 (05:50→23:36)
[2018-09-06] MEDS: RT-ADVAIR HFA 115/21 MCG PER PUFF IH SCH ×2 (06:06→18:19)
[2018-09-06 08:00] VITALS: BP 169/93
[2018-09-06] MEDS: PHENYTOIN 100 MG (DILANTIN) CAP PO SCH ×3 (08:20→23:36)
[2018-09-06] MEDS: amLODIPine 5 MG (NORVASC) TAB PO SCH (08:20)
[2018-09-06] MEDS: GABAPENTIN 600 MG (NEURONTIN) TAB PO SCH ×2 (08:20→15:22)
--- NOTE | 2018-09-06 10:38 | Progress Note-Hospitalist ---
Subjective HPI/CC On Admission Date Seen by Provider: Sep 06, 2018 Time Seen by Provider: 09:40 CC: Confusion with exacerbation of COPD HPI: This is a 63-year-old white male who is usually hospitalized every other month here via [facility] who has a past medical history of lung cancer undergoing treatment but admitted frequently for exacerbation of COPD. Apparently had a fall yesterday became more confused and found to have slight hyponatremia but ABG showed CO2 retention so he was placed on IV steroids and BiPAP and patient was supported with telesitter due to impulsivity and fall risk. Patient appears to still be confused so will keep close monitoring for falls. Overall prognosis is very poor. Subjective/Events-last exam Confusion has nearly cleared No longer requiring a tele-sitter Wheezing is continuing in the right lung lo Eating a little better Bowels are moving IV steroids are tolerated Restarted most home meds Review of Systems General: Fatigue Pulmonary: Dyspnea, Cough Objective Exam Vital Signs Vital Signs Date Time Temp Pulse Resp B/P (MAP) Pulse Ox O2 Delivery O2 Flow Rate FiO2 09/06/18 15:27 99.0 69 20 137/75 (95) 97 Nasal Cannula 2.00 Capillary Refill : Less Than 3 SecondsLess Than 3 Seconds General Appearance: No Apparent Distress, WD/WN, Chronically ill, Thin HEENT: PERRL/EOMI, Normal ENT Inspection, Pharynx Normal, Moist Mucous Membranes Neck: Full Range of Motion, Normal Inspection, Non Tender Respiratory: Chest Non Tender, No Accessory Muscle Use, No Respiratory Distress, Crackles, Decreased Breath Sounds, Wheezing Cardiovascular: Regular Rate, Rhythm, No Edema, No Gallop, No JVD, No Murmur, Normal Peripheral Pulses Gastrointestinal: Normal Bowel Sounds, No Organomegaly, No Pulsatile Mass, Non Tender, Soft Back: Normal Inspection, No CVA Tenderness, No Vertebral Tenderness Extremity: Normal Capillary Refill, Normal Inspection, Normal Range of Motion, Non Tender, No Calf Tenderness, No Pedal Edema Neurologic/Psychiatric: Alert, No Motor/Sensory Deficits, Normal Mood/Affect, Disoriented Skin: Normal Color, Warm/Dry Lymphatic: No Adenopathy Results/Procedures Lab Patient resulted labs reviewed. Assessment/Plan Assessment and Plan Assess & Plan/Chief Complaint Assessment: Chronic obstructive pulmonary disease with acute exacerbation. Confusion with fall-confusion has cleared Dependent on supplemental oxygen. Seizures. Essential hypertension. History of lobar pneumonia. 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 Former smoker Lipidemia. Weakness. History of fractured cervical spine Plan: Monitor labs HLIVF Home meds IV steroids Diagnosis/Problems Diagnosis/Problems (1) COPD exacerbation Status: Acute (2) Altered mental status Status: Acute Qualifiers: Altered mental status type: unspecified Qualified Codes: R41.82 - Altered mental status, unspecified (3) Hypoxia Status: Acute (4) Hx of seizure disorder Status: Chronic (5) Lung cancer metastatic to bone Status: Chronic (6) Generalized weakness Status: Acute (7) Seizure disorder Status: Chronic (8) Hyponatremia Status: Acute Clinical Quality Measures DVT/VTE Risk/Contraindication: Risk Factor Score Per Nursin RFS Level Per Nursing on Admit: 4+=Very High JAMIR ELLISON DO Sep 06, 2018 10:38
[2018-09-06] MEDS: MELOXICAM 7.5 MG (MOBIC) TABLET PO SCH (15:20)
[2018-09-06 15:27] VITALS: BP 137/75
[2018-09-06] MEDS ORDERED: ACETAMINOPHEN 325 MG TABLET ONE (19:59)
[2018-09-06] MEDS ORDERED: ACETAMINOPHEN 325 MG TABLET PO PRN (20:00)
[2018-09-06 23:34] VITALS: BP 115/62
[2018-09-06] MEDS: GABAPENTIN 300 MG (NEURONTIN) CAP PO SCH (23:36)
[2018-09-07] MEDS: RT-ALBUTEROL/IPRATROPIUM 3 ML (DUONEB) VIAL IH SCH ×3 (01:45→11:17)
[2018-09-07] MEDS: lisINopril 20 MG (PRINIVIL) TABLET PO SCH (03:17)
[2018-09-07] MEDS: carBAMazepine 200 MG (TEGretol) TAB PO SCH ×2 (03:17→08:08)
[2018-09-07] MEDS: lamoTRIgine 25 MG (LaMICtal) TAB PO SCH (03:17)
[2018-09-07] MEDS: ATORVASTATIN 10 MG (LIPITOR) TABLET PO SCH (03:18)
[2018-09-07] MEDS: methylPREDNISolone 40 MG/ML (Solu-MEDROL) VIAL IV SCH (05:58)
[2018-09-07 06:28] LABS: BASOPHILS % (AUTO) 0 % (0-10); EOSINOPHILS % (AUTO) 0 % (0-10); HEMATOCRIT 33 % (40-54); HEMOGLOBIN 10.4 G/DL (13.3-17.7); LYMPHOCYTES # (AUTO) 0.7 X 10^3 (1.0-4.0); LYMPHOCYTES % (AUTO) 12 % (12-44); MEAN CORPUSCULAR HEMOGLOBIN 26 PG (25-34); MEAN CORPUSCULAR HGB CONC 32 G/DL (32-36); MEAN CORPUSCULAR VOLUME 83 FL (80-99); MEAN PLATELET VOLUME 9.1 FL (7.4-10.4); MONOCYTES # (AUTO) 0.7 X 10^3 (0.0-1.0); MONOCYTES % (AUTO) 11 % (0-12); NEUTROPHILS # (AUTO) 4.7 X 10^3 (1.8-7.8); NEUTROPHILS % (AUTO) 77 % (42-75); PLATELET COUNT 214 10^3/uL (130-400); WHITE BLOOD COUNT 6.1 10^3/uL (4.3-11.0)
[2018-09-07 06:58] LABS: ALANINE AMINOTRANSFERASE 12 U/L (0-55); ALKALINE PHOSPHATASE 144 U/L (40-136); BILIRUBIN,TOTAL 0.2 MG/DL (0.1-1.0); BUN/CREATININE RATIO 17; CALCIUM 8.9 MG/DL (8.5-10.1); CARBON DIOXIDE 26 MMOL/L (21-32); CHLORIDE 97 MMOL/L (98-107); CREATININE SERUM 0.72 MG/DL (0.60-1.30); GFR ESTIMATED > 60; GLUCOSE 123 MG/DL (70-105); POTASSIUM 4.3 MMOL/L (3.6-5.0); SODIUM 133 MMOL/L (135-145); TOTAL PROTEIN 6.8 GM/DL (6.4-8.2)
--- NOTE | 2018-09-07 07:36 | Progress Note (SOAP) ---
Subjective Time Seen by a Provider: 07:31 Subjective/Events-last exam Patient feeling good today. Patient wants to go home. Patient's mental status is good. Patient denies being weak. Nurse to call at 11 a.m. for discharge today Objective Exam Vital Signs Date Time Temp Pulse Resp B/P (MAP) Pulse Ox O2 Delivery O2 Flow Rate FiO2 09/07/18 01:45 97 Nasal Cannula 2.00 09/06/18 23:34 98.6 68 18 115/62 (79) 97 Nasal Cannula 2.00 09/06/18 21:38 95 Nasal Cannula 2.00 09/06/18 20:00 Nasal Cannula 09/06/18 18:24 97 Nasal Cannula 2.00 09/06/18 18:19 97 Nasal Cannula 2.00 09/06/18 15:27 99.0 69 20 137/75 (95) 97 Nasal Cannula 2.00 09/06/18 14:23 94 Nasal Cannula 2.00 09/06/18 10:19 95 Nasal Cannula 2.00 09/06/18 08:00 97.6 66 18 169/93 (118) 98 Nasal Cannula 3.00 09/06/18 08:00 98 Nasal Cannula 3.00 I & O 09/07/18 07:00 Intake Total 2727 ml Output Total 2050 ml Balance 677 ml Capillary Refill : Less Than 3 SecondsLess Than 3 Seconds General Appearance: No Apparent Distress, Thin HEENT: Normal ENT Inspection Neck: Full Range of Motion, Normal Inspection Respiratory: Chest Non Tender, Normal Breath Sounds, No Accessory Muscle Use, No Respiratory Distress, Decreased Breath Sounds Cardiovascular: Regular Rate, Rhythm, No Murmur Gastrointestinal: non tender, soft Results Lab Laboratory Tests 09/07/18 06:00 Laboratory Tests 09/07/18 06:00: White Blood Count 6.1, Red Blood Count 3.94L, Hemoglobin 10.4L, Hematocrit 33L, Mean Corpuscular Volume 83, Mean Corpuscular Hemoglobin 26, Mean Corpuscular Hemoglobin Concent 32, Red Cell Distribution Width 15.0H, Platelet Count 214, Mean Platelet Volume 9.1, Neutrophils (%) (Auto) 77H, Lymphocytes (%) (Auto) 12, Monocytes (%) (Auto) 11, Eosinophils (%) (Auto) 0, Basophils (%) (Auto) 0, Neutrophils # (Auto) 4.7, Lymphocytes # (Auto) 0.7L, Monocytes # (Auto) 0.7, Eosinophils # (Auto) 0.0, Basophils # (Auto) 0.0, Sodium Level 133L, Potassium Level 4.3, Chloride Level 97L, Carbon Dioxide Level 26, Anion Gap 10, Blood Urea Nitrogen 12, Creatinine 0.72, Estimat Glomerular Filtration Rate > 60, BUN/Cre atinine Ratio 17, Glucose Level 123H, Calcium Level 8.9, Corrected Calcium 8.9, Total Bilirubin 0.2, Aspartate Amino Transf (AST/SGOT) 12, Alanine Aminotransferase (ALT/SGPT) 12, Alkaline Phosphatase 144H, Total Protein 6.8, Albumin 4.0 Assessment/Plan Assessment/Plan Assess & Plan/Chief Complaint Confusion with 4. Weakness. Slurred speech. Acute mental status change. Short of breath. COPD. Lung cancer. History of pneumonia. Slight hyponatremia. History of seizures. History of cervical fracture Clinical Quality Measures DVT/VTE Risk/Contraindication: Risk Factor Score Per Nursin RFS Level Per Nursing on Admit: 4+=Very High AAMNDEEP GENAO DO Sep 07, 2018 07:36
--- NOTE | 2018-09-07 07:41 | Discharge Inst-Simple/Standard ---
Discharge Inst-Standard Patient Instructions/Follow Up Plan of Care/Instructions/FU: 2 office on at 1 p.m. Continue with medications Activity as Tolerated: Yes Discharge Diet: No Restrictions AMANDEEP GENAO DO Sep 07, 2018 07:40
[2018-09-07] MEDS: RT-ADVAIR HFA 115/21 MCG PER PUFF IH SCH (07:49)
[2018-09-07 08:00] VITALS: BP 165/99
[2018-09-07] MEDS: amLODIPine 5 MG (NORVASC) TAB PO SCH (08:07)
[2018-09-07] MEDS: GABAPENTIN 600 MG (NEURONTIN) TAB PO SCH (08:08)
[2018-09-07] MEDS: PHENYTOIN 100 MG (DILANTIN) CAP PO SCH (08:08)
--- NOTE | 2018-09-07 11:04 | NUR ---
CALLED DR GENAO AT 1100 INSTRUCTED. OKAY FOR PATIENT TO GO HOME TODAY.
--- NOTE | 2018-09-07 11:20 | NUR ---
Important Message from Medicare presented, reviewed, signed and placed in patient chart. Patient voiced no intention to appeal and deny any needs or further questions at this time.
[2018-09-07 11:35] VITALS: BP 165/99
--- NOTE | 2018-09-08 07:33 | Discharge Summary ---
Diagnosis/Chief Complaint Date of Admission Sep 04, 2018 at 18:22 Date of Discharge Sep 07, 2018 at 12:14 Discharge Date: Sep 07, 2018 Discharge Time: 07:31 Discharge Diagnosis Review Confusion. Weakness. Slurred speech. Acute mental status change. Hyponatremia. COPD. History of lung cancer. Seizure. Essential hypertension. Former smoker. Neck fracture Discharge Summary Discharge Physical Examination Allergies: Coded Allergies: aspirin (Unverified Allergy, Mild, DOES NOT WORK WELL W/ OTHER MEDS, 09/04/18) ibuprofen (Unverified Allergy, Mild, 09/04/18) Vitals & I&Os Vital Signs Date Time Temp Pulse Resp B/P (MAP) Pulse Ox O2 Delivery O2 Flow Rate FiO2 09/07/18 11:35 78 18 165/99 96 Nasal Cannula 2.00 09/07/18 08:00 98.6 Hospital Course Patient in hospital did improve. Altered mental status was reversed. Patient able to walk around. No weakness. Patient much improved Labs (last 24 hrs) Laboratory Tests 09/04/18 17:20: Blood Gas Puncture Site R RAD, Blood Gas Patient Temperature 97.9, Arterial Blood pH 7.35L, Arterial Blood Partial Pressure CO2 57H, Arterial Blood Partial Pressure O2 94H, Arterial Blood HCO3 31H, Arterial Blood Total CO2 32.6H, Arterial Blood Oxygen Saturation 94, Arterial Blood Base Excess 5.3H, Johan Test YES-POS, Blood Gas Ventilator Setting NO, Blood Gas Inspired Oxygen 3L 09/04/18 17:38: White Blood Count 7.0, Red Blood Count 3.95L, Hemoglobin 10.4L, Hematocrit 33L, Mean Corpuscular Volume 84, Mean Corpuscular Hemoglobin 26, Mean Corpuscular Hemoglobin Concent 32, Red Cell Distribution Width 14.7H, Platelet Count 221, Mean Platelet Volume 8.8, Neutrophils (%) (Auto) 72, Lymphocytes (%) (Auto) 14, Monocytes (%) (Auto) 15H, Eosinophils (%) (Auto) 0, Basophils (%) (Auto) 0, Neutrophils # (Auto) 5.0, Lymphocytes # (Auto) 0.9L, Monocytes # (Auto) 1.0, Eosinophils # (Auto) 0.0, Basophils # (Auto) 0.0, Sodium Level 133L, Potassium Level 4.3, Chloride Level 97L, Carbon Dioxide Level 29, Anion Gap 7, Blood Urea Nitrogen 11, Creatinine 0.71, Estimat Glomerular Filtration Rate > 60, BUN /Creatinine Ratio 15, Glucose Level 121H, Calcium Level 8.6 09/05/18 05:40: White Blood Count 5.3, Red Blood Count 3.61L, Hemoglobin 9.3L, Hematocrit 30L, Mean Corpuscular Volume 84, Mean Corpuscular Hemoglobin 26, Mean Corpuscular Hemoglobin Concent 31L, Red Cell Distribution Width 14.9H, Platelet Count 198, Mean Platelet Volume 9.1, Neutrophils (%) (Auto) 88H, Lymphocytes (%) (Auto) 7L, Monocytes (%) (Auto) 5, Eosinophils (%) (Auto) 0, Basophils (%) (Auto) 0, Neutrophils # (Auto) 4.7, Lymphocytes # (Auto) 0.4L, Monocytes # (Auto) 0.3, Eosinophils # (Auto) 0.0, Basophils # (Auto) 0.0, Sodium Level 138, Potassium Level 4.8, Chloride Level 104, Carbon Dioxide Level 27, Anion Gap 7, Blood Urea Nitrogen 9, Creatinine 0.69, Estimat Glomerular Filtration Rate > 60, BUN/Creatinine Ratio 13, Glucose Level 116H, Calcium Level 8.8, Neutrophils % (Manual) 90, Lymphocytes % (Manual) 7, Monocytes % (Manual) 3 09/07/18 06:00: White Blood Count 6.1, Red Blood Count 3.94L, Hemoglobin 10.4L, Hematocrit 33L, Mean Corpuscular Volume 83, Mean Corpuscular Hemoglobin 26, Mean Corpuscular He moglobin Concent 32, Red Cell Distribution Width 15.0H, Platelet Count 214, Mean Platelet Volume 9.1, Neutrophils (%) (Auto) 77H, Lymphocytes (%) (Auto) 12, M onocytes (%) (Auto) 11, Eosinophils (%) (Auto) 0, Basophils (%) (Auto) 0, Neutrophils # (Auto) 4.7, Lymphocytes # (Auto) 0.7L, Monocytes # (Auto) 0.7, Eosinophils # (Auto) 0.0, Basophils # (Auto) 0.0, Sodium Level 133L, Potassium Level 4.3, Chloride Level 97L, Carbon Dioxide Level 26, Anion Gap 10, Blood Urea Nitrogen 12, Creatinine 0.72, Estimat Glomerular Filtration Rate > 60, BUN/Creatinine Ratio 17, Glucose Level 123H, Calcium Level 8.9, Corrected Calcium 8.9, Total Bilirubin 0.2, Aspartate Amino Transf (AST/SGOT) 12, Alanine Aminotransferase (ALT/SGPT) 12, Alkaline Phosphatase 144H, Total Protein 6.8, Albumin 4.0 Laboratory Tests 09/04/18 17:38 09/05/18 05:40 09/07/18 06:00 Pending Labs Laboratory Tests 09/04/18 17:20: Blood Gas Puncture Site R RAD, Blood Gas Patient Temperature 97.9, Arterial Blood pH 7.35, Arterial Blood Partial Pressure CO2 57, Arterial Blood Partial Pressure O2 94, Arterial Blood HCO3 31, Arterial Blood Total CO2 32.6, Arterial Blood Oxygen Saturation 94, Arterial Blood Base Excess 5.3, Johan Test YES-POS, Blood Gas Ventilator Setting NO, Blood Gas Inspired Oxygen 3L 09/04/18 17:38: White Blood Count 7.0, Red Blood Count 3.95, Hemoglobin 10.4, Hematocrit 33, Mean Corpuscular Volume 84, Mean Corpuscular Hemoglobin 26, Mean Corpuscular Hemoglobin Concent 32, Red Cell Distribution Width 14.7, Platelet Count 221, Mean Platelet Volume 8.8, Neutrophils (%) (Auto) 72, Lymphocytes (%) (Auto) 14, Monocytes (%) (Auto) 15, Eosinophils (%) (Auto) 0, Basophils (%) (Auto) 0, Neutrophils # (Auto) 5.0, Lymphocytes # (Auto) 0.9, Monocytes # (Auto) 1.0, Eosinophils # (Auto) 0.0, Basophils # (Auto) 0.0, Sodium Level 133, Potassium Level 4.3, Chloride Level 97, Carbon Dioxide Level 29, Anion Gap 7, Blood Urea Nitrogen 11, Creatinine 0.71, Estimat Glomerular Filtration Rate > 60, BUN/Creatinine Ratio 15, Glucose Level 121, Calcium Level 8.6 09/05/18 05:40: White Blood Count 5.3, Red Blood Count 3.61, Hemoglobin 9.3, Hematocrit 30, Mean Corpuscular Volume 84, Mean Corpuscular Hemoglobin 26, Mean Corpuscular Hemoglobin Concent 31, Red Cell Distribution Width 14.9, Platelet Count 198, Mean Platelet Volume 9.1, Neutrophils (%) (Auto) 88, Lymphocytes (%) (Auto) 7, Monocytes (%) (Auto) 5, Eosinophils (%) (Auto) 0, Basophils (%) (Auto) 0, Neutrophils # (Auto) 4.7, Lymphocytes # (Auto) 0.4, Monocytes # (Auto) 0.3, Eosinophils # (Auto) 0.0, Basophils # (Auto) 0.0, Sodium Level 138, Potassium Level 4.8, Chloride Level 104, Carbon Dioxide Level 27, Anion Gap 7, Blood Urea Nitrogen 9, Creatinine 0.69, Estimat Glomerular Filtration Rate > 60, BUN/Creatinine Ratio 13, Glucose Level 116, Calcium Level 8.8, Neutrophils % (Manual) 90, Lymphocytes % (Manual) 7, Monocytes % (Manual) 3 09/07/18 06:00: White Blood Count 6.1, Red Blood Count 3.94, Hemoglobin 10.4, Hematocrit 33, Mean Corpuscular Volume 83, Mean Corpuscular Hemoglobin 26, Mean Corpuscular H emoglobin Concent 32, Red Cell Distribution Width 15.0, Platelet Count 214, Mean Platelet Volume 9.1, Neutrophils (%) (Auto) 77, Lymphocytes (%) (Auto) 12, Monocytes (%) (Auto) 11, Eosinophils (%) (Auto) 0, Basophils (%) (Auto) 0, Neutrophils # (Auto) 4.7, Lymphocytes # (Auto) 0.7, Monocytes # (Auto) 0.7, Eosinophils # (Auto) 0.0, Basophils # (Auto) 0.0, Sodium Level 133, Potassium Level 4.3, Chloride Level 97, Carbon Dioxide Level 26, Anion Gap 10, Blood Urea Nitrogen 12, Creatinine 0.72, Estimat Glomerular Filtration Rate > 60, BUN/Creatinine Ratio 17, Glucose Level 123, Calcium Level 8.9, Corrected Calcium 8.9, Total Bilirubin 0.2, Aspartate Amino Transf (AST/SGOT) 12, Alanine Aminotransferase (ALT/SGPT) 12, Alkaline Phosphatase 144, Total Protein 6.8, Albumin 4.0 Discussion & Recommendations Patient to be followed up in office Discharge Home Medications: Active Scripts Active Hydrocodone/Acetaminophen 5/325mg Tablet (Acetaminophen/Hydrocodone Bitart) 1 Tab Tab 0.5 Each PO Q4-6HR PRN MDD 10 3 Days Cefdinir 300 Mg Capsule 300 Mg PO BID 7 Days Cefdinir 300 Mg Capsule 300 Mg PO BID Atorvastatin Calcium 20 Mg Tablet 20 Mg PO 0300 30 Days Reported Hydrocodone-Acetamin 7.5-325 (Hydrocodone/Acetaminophen) 1 Each Tablet 1 Tab PO TID PRN Meloxicam 7.5 Mg Tablet 7.5 Mg PO DAILY Ondansetron Odt (Ondansetron) 4 Mg Tab.rapdis 4 Mg PO TID PRN Omeprazole 20 Mg Capsule.dr 20 Mg PO DAILY PRN Advair Hfa 115-21 Mcg Inhaler (Fluticasone/Salmeterol) 12 Gm Hfa.aer.ad 2 Puff INH BID Carbamazepine 200 Mg Tablet 400 Mg PO 1500 TAKES 2 (200 MG) TABLETS Amlodipine Besylate 5 Mg Tablet 5 Mg PO 0800 LAST FILLED #90 12-25-17 Lamotrigine 25 Mg Tablet 25 Mg PO 1500,0300 Lisinopril 20 Mg Tablet 20 Mg PO 0300 LAST FILLED #90 12-25-17 Proair Hfa (Albuterol Sulfate) 1 Puff Puff 2 Puff IH Q6H PRN 1 PUFF = 90 MCG Spiriva (Tiotropium [place]) 1 Inh Aerp 1 Cap IH DAILY Albuterol Sulfate 2.5 Mg/3 Ml Vial.neb 2.5 Mg NEB QID Tegretol (Carbamazepine) 200 Mg Tablet 200 Mg PO 0800,2300,0300 Phenytoin Sodium Extended 100 Mg Capsule 100 Mg PO 2300 LAST FILLED A 90 DAY SUPPLY 12-22-17 Phenytoin Sodium Extended 100 Mg Capsule 200 Mg PO 0800,1500 LAST FILLED A 90 DAY SUPPLY 12-22-17 TAKES 2 (100 MG) CAPSULES Gabapentin 600 Mg Tablet 600 Mg PO 0800,1500 Gabapentin 300 Mg Capsule 300 Mg PO 2300 Lamotrigine 100 Mg Tablet 100 Mg PO 1500,2300 Instructions to patient/family Please see electronic discharge instructions given to patient. Clinical Quality Measures DVT/VTE Risk/Contraindication: Risk Factor Score Per Nursin RFS Level Per Nursing on Admit: 4+=Very High AMANDEEP GENAO DO Sep 08, 2018 07:33
== END 2018-09-07 12:14 | disposition home or self-care (01) | DRG 191 ==
LOC: EDUNIT# 17:07 → ER 17:08 → 4TH 18:22
PROVIDERS: ADMIT Internal Medicine; ATTEND Family Medicine
DX: J44.1 Chronic obstructive pulmonary disease with (acute) exacerbation (principal); E87.1 Hypo-osmolality and hyponatremia; R41.82 Altered mental status, unspecified; R47.81 Slurred speech; R53.1 Weakness; C79.51 Secondary malignant neoplasm of bone; R26.2 Difficulty in walking, not elsewhere classified; R29.6 Repeated falls; G47.30 Sleep apnea, unspecified; R01.1 Cardiac murmur, unspecified; I10 Essential (primary) hypertension; G40.909 Epilepsy, unspecified, not intractable, without status epilepticus; G62.9 Polyneuropathy, unspecified; E78.00 Pure hypercholesterolemia, unspecified; R09.02 Hypoxemia; R42 Dizziness and giddiness; G14 Postpolio syndrome; M19.91 Primary osteoarthritis, unspecified site; Z99.81 Dependence on supplemental oxygen; Z85.118 Personal history of other malignant neoplasm of bronchus and lung; Z92.21 Personal history of antineoplastic chemotherapy; Z87.891 Personal history of nicotine dependence; Z87.01 Personal history of pneumonia (recurrent)
CPT/HCPCS: 36415; 71045; 80048; 80053; 82805; 85007; 85025; 85027; 94640; 94760; 96374

== ENCOUNTER → 2018-09-14 | Outpatient (CLI) | payer MEDICARE, MEDICAID ==
[~2018-09-14] MED LIST changes: +HOLD METFORMIN - RECEIVED CONTRAST 20 ML VIAL IV SCH; +IOHEXOL 350 MG/ML 100 ML (OMNIPAQUE 350) VIAL IV ONE; +NS 100 ML (IVPB) BAG IV ONE
--- NOTE | 2018-09-14 09:38 | Diagnostic Imaging Report ---
PROCEDURE: CT chest with contrast only. TECHNIQUE: Multiple contiguous axial images were obtained through the chest after administration of intravenous contrast. Auto Exposure Controls were utilized during the CT exam to meet ALARA standards for radiation dose reduction. INDICATION: History of non-small cell lung cancer. COMPARISON: 07/14/2018 FINDINGS: Evaluation of lung lo again demonstrates background emphysematous disease. Triangular-shaped density is noted within the posteromedial margins of the left upper lobe and is stable measuring approximately 7 mm on today's exam, in comparison to 8 mm on exam dated 06/24/2018. Scattered subpleural ill-defined groundglass densities are noted within the posterolateral margins of the right upper lobe as well as the posterior and lateral margins of the right lower lobe. Overall, aeration has significantly improved, bilaterally. There does appear to be some minimal residual partial atelectasis of the bilateral lower lobes. There are, however, several small subpleural micronodular densities within the posterior margins of the right upper lobe measuring 5-6 mm in diameter. These do appear to be new when compared to 06/24/2018. Previously described subpleural micronodule within the lateral base of the right upper lobe has essentially since resolved. There is no large effusion or pneumothorax on either side. Cardiomediastinal structures show normal heart size. There is no large pericardial effusion. There is advanced calcified aortic and coronary atherosclerotic disease. No pathologically enlarged or morphologically abnormal adenopathy is seen within the mediastinum, ryan, nor axilla. Osseous structures again show nonacute compression deformity of L1. Also again identified is prominent lucency within the right humeral head. No new acute osseous abnormality is seen. Included portions of the upper abdomen are unremarkable. IMPRESSION: 1. Since the previous exam, there has been significant interval improved aeration of the bilateral lower lobes. There may be some residual dependent atelectasis. 2. Areas of ill-defined groundglass density within the right upper and right lower lobes. Additionally, a few scattered new micronodular densities are noted within the right upper lobe. Findings could be on underlying infectious or inflammatory basis. May want to consider continued followup. 3. Previously described referenced subpleural micronodule within the right middle lobe has essentially since resolved. 4. Background moderate emphysematous disease. 5. Advanced calcified aortic and coronary atherosclerosis. Dictated by: Dictated on workstation # [id number]
== END ==
LOC: RAD 08:31
PROVIDERS: ATTEND Nurse Practitioner Family
DX: C34.12 Malignant neoplasm of upper lobe, left bronchus or lung (principal); J43.9 Emphysema, unspecified; I70.0 Atherosclerosis of aorta; I25.10 Atherosclerotic heart disease of native coronary artery without angina pectoris; J96.20 Acute and chronic respiratory failure, unspecified whether with hypoxia or hypercapnia; J98.4 Other disorders of lung; R91.8 Other nonspecific abnormal finding of lung field; J18.9 Pneumonia, unspecified organism; F17.201 Nicotine dependence, unspecified, in remission
CPT/HCPCS: 71260

== ENCOUNTER 2018-10-05 03:09 | Emergency (ER) | payer MEDICARE, MEDICAID ==
[~2018-10-05] VITALS: Ht 182.9 cm; Wt 80.7 kg
[~2018-10-05 03:09] MED LIST changes: -HOLD METFORMIN - RECEIVED CONTRAST 20 ML VIAL IV SCH; -IOHEXOL 350 MG/ML 100 ML (OMNIPAQUE 350) VIAL IV ONE; -NS 100 ML (IVPB) BAG IV ONE
[2018-10-05 03:15] VITALS: BP 174/104
[2018-10-05] MEDS ORDERED: RT-ALBUTEROL SULF 2.5 MG/3 ML PRE-MIX VIAL ONE (03:17)
[2018-10-05] MEDS ORDERED: RT-ALBUTEROL/IPRATROPIUM 3 ML (DUONEB) VIAL ONE (03:17)
[2018-10-05] MEDS ORDERED: RT-ALBUTEROL SULF 2.5 MG/3 ML PRE-MIX VIAL INH STA (03:20)
[2018-10-05] MEDS ORDERED: NS IV 1000 ML 1,000 ML IV ONE (03:29)
[2018-10-05] MEDS ORDERED: PIPERACILLIN/TAZOBACTAM (BULK) 4.5 GM in NS (IVPB) 100 ML IV ONE (03:30)
[2018-10-05] MEDS ORDERED: methylPREDNISolone 125 MG (Solu-MEDROL) VIAL IVP ONE (03:30)
[2018-10-05] MEDS ORDERED: RT-ALBUTEROL/IPRATROPIUM 3 ML (DUONEB) VIAL INH ONE (03:30)
[2018-10-05 03:40] LABS: ABG BASE EXCESS 3.9 MMOL/L (-2.5-2.5); ABG OXYGEN SATURATION 92 % (94-100); ABG PCO2 45 MMHG (35-45); ABG PH 7.41 (7.37-7.43); ABG PO2 69 MMHG (79-93); ABG TCO2 29.3 MMOL/L (21.0-31.0); BASOPHILS % (AUTO) 0 % (0-10); EOSINOPHILS % (AUTO) 0 % (0-10); HEMATOCRIT 37 % (40-54); LYMPHOCYTES % (AUTO) 7 % (12-44); MEAN CORPUSCULAR HEMOGLOBIN 26 PG (25-34); MEAN CORPUSCULAR HGB CONC 32 G/DL (32-36); MEAN CORPUSCULAR VOLUME 81 FL (80-99); MEAN PLATELET VOLUME 8.4 FL (7.4-10.4); MONOCYTES # (AUTO) 1.1 X 10^3 (0.0-1.0); MONOCYTES % (AUTO) 7 % (0-12); NEUTROPHILS # (AUTO) 13.2 X 10^3 (1.8-7.8); NEUTROPHILS % (AUTO) 86 % (42-75); PLATELET COUNT 317 10^3/uL (130-400); RED CELL DISTRIBUTION WIDTH 16.6 % (10.0-14.5); WHITE BLOOD COUNT 15.3 10^3/uL (4.3-11.0)
[2018-10-05] MEDS ORDERED: PIPERACILLIN/TAZO 4.5 GM VIAL (ZOSYN) IV ONE (03:41)
[2018-10-05 03:43] LABS: ALLENS TEST POSITIVE; INSPIRED O2 40% BIPAP; PATIENT TEMP 100.9; VENTILATOR NO
--- NOTE | 2018-10-05 03:44 | ED General ---
General Chief Complaint: Respiratory Problems Stated Complaint: SOB Source of Information: Patient, Family Exam Limitations: No Limitations History of Present Illness Date Seen by Provider: Oct 05, 2018 Time Seen by Provider: 03:11 Initial Comments This 63-year-old gentleman with COPD is well-known to the ER staff for frequent visits due to COPD exacerbation among other issues. He presents today by private vehicle with respiratory distress. He is also febrile with a temperature of 100.7. He does breathing treatments at home but cannot keep up with his shortness of breath. He normally uses oxygen at 2 L/m. His oxygen saturations in the 80s at this rate. He also has a history of lung cancer and last received chemotherapy about a week and a half ago. [place] [facility] is on house wide diversion at this time. He requests transfer to [facility]. Allergies and Home Medications Allergies Coded Allergies: aspirin (Unverified Allergy, Mild, DOES NOT WORK WELL W/ OTHER MEDS, 10/05/18) ibuprofen (Unverified Allergy, Mild, 10/05/18) Home Medications Albuterol Sulfate 2.5 Mg/3 Ml Vial.neb, 2.5 MG NEB QID, (Reported) Albuterol Sulfate 1 Puff Puff, 2 PUFF IH Q6H PRN for SHORTNESS OF BREATH, (Reported) 1 PUFF = 90 MCG Amlodipine Besylate 5 Mg Tablet, 5 MG PO 0800, (Reported) LAST FILLED #90 12-25-17 Atorvastatin Calcium 20 Mg Tablet, 20 MG PO 0300 Prescribed by: FRAN DELACRUZ on 06/26/18 1254 Carbamazepine 200 Mg Tablet, 200 MG PO 0800,2300,0300, (Reported) Carbamazepine 200 Mg Tablet, 400 MG PO 1500, (Reported) TAKES 2 (200 MG) TABLETS Cefdinir 300 Mg Capsule, 300 MG PO BID Prescribed by: FRAN DELACRUZ on 06/26/18 1254 Cefdinir 300 Mg Capsule, 300 MG PO BID Prescribed by: ERIN ETIENNE on 07/24/18 1157 Fluticasone/Salmeterol 12 Gm Hfa.aer.ad, 2 PUFF INH BID, (Reported) Gabapentin 300 Mg Capsule, 300 MG PO 2300, (Reported) Gabapentin 600 Mg Tablet, 600 MG PO 0800,1500, (Reported) Hydrocodone Bit/Acetaminophen 1 Tab Tab, 0.5 EACH PO Q4-6HR PRN for PAIN- MODERATE Prescribed by: NESTOR AVILEZ on 08/12/18 1850 Hydrocodone/Acetaminophen 1 Each Tablet, 1 TAB PO TID PRN for PAIN-MODERATE, (Reported) Lamotrigine 100 Mg Tablet, 100 MG PO 1500,2300, (Reported) Lamotrigine 25 Mg Tablet, 25 MG PO 1500,0300, (Reported) Lisinopril 20 Mg Tablet, 20 MG PO 0300, (Reported) LAST FILLED #90 12-25-17 Meloxicam 7.5 Mg Tablet, 7.5 MG PO DAILY, (Reported) Omeprazole 20 Mg Capsule.dr, 20 MG PO DAILY PRN for HEARTBURN, (Reported) Ondansetron 4 Mg Tab.rapdis, 4 MG PO TID PRN for NAUSEA/VOMITING-1ST LINE, (Reported) Phenytoin Sodium Extended 100 Mg Capsule, 200 MG PO 0800,1500, (Reported) LAST FILLED A 90 DAY SUPPLY 12-22-17 TAKES 2 (100 MG) CAPSULES Phenytoin Sodium Extended 100 Mg Capsule, 100 MG PO 2300, (Reported) LAST FILLED A 90 DAY SUPPLY 12-22-17 Tiotropium [place] 1 Inh Aerp, 1 CAP IH DAILY, (Reported) Patient Home Medication List Home Medication List Reviewed: Yes Review of Systems Review of Systems Constitutional: see HPI EENTM: no symptoms reported Respiratory: see HPI Cardiovascular: no symptoms reported Gastrointestinal: no symptoms reported Genitourinary: no symptoms reported Musculoskeletal: no symptoms reported Skin: no symptoms reported Psychiatric/Neurological: No Symptoms Reported Hematologic/Lymphatic: No Symptoms Reported Past Pahqgxm-Ppsgpq-Mypemr Hx Past Med/Social Hx: Reviewed Nursing Past Med/Soc Hx Patient Social History Drug of Choice: HX OF RX DRUG ABUSE, CLAIMS NONE 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 Type Used: Cigars, Cigarettes Former Smoker, Quit: May 01, 2017 2nd Hand Smoke Exposure: No Recent Foreign Travel: No Contact w/Someone Who Travel: No Recent Hopitalizations: No Immunizations Up To Date Tetanus Booster (TDap): Unknown PED Vaccines UTD: Yes Date of Influenza Vaccine: Apr 21, 2018 Seasonal Allergies Seasonal Allergies: Yes Past Medical History Surgeries: Yes (PORT RIGHT CHEST; CT GUIDED BX OF FEMUR; BILATERAL CATARACT SURGERY) Eye Surgery, Gallbladder Respiratory: Yes Asthma, Pneumonia, Chronic Bronchitis, Sleep Apnea, COPD Currently Using CPAP: No Currently Using BIPAP: No Cardiac: Yes Heart Murmur, High Cholesterol, Hypertension, Valvular Heart Disease 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) Neuropathy, Seizure Disorder, Vertigo Reproductive Disorders: No Sexually Transmitted Disease: No HIV/AIDS: No Genitourinary: No Gastrointestinal: Yes (CHRONIC NAUSEA/VOMITING) Musculoskeletal: Yes Arthritis, Fractures Endocrine: No HEENT: No Loss of Vision: Denies Hearing Impairment: Denies Cancer: Yes Lung Did You Recieve Any Treatments: Yes What Type of Treatment Did You: Chemotherapy Psychosocial: No Integumentary: No Blood Disorders: No Adverse Reaction/Blood Tranf: No Family Medical History Hypercholesterolemia 19 FATHER Hypertension 19 FATHER Physical Exam-Suspected Sepsis Physical Exam Vital Signs Vital Signs - First Documented 10/05/18 10/05/18 03:15 04:08 Temp 100.4 Pulse 109 Resp 30 B/P (MAP) 174/104 (127) Pulse Ox 90 O2 Delivery NIV Bilevel O2 Flow Rate 30.00 FiO2 30 Capillary Refill : Height, Weight, BMI Height: 6'0.00" Weight: 177lbs. 3.0oz. 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 Norm as Tested Skin: normal color, warm/dry Focused Exam Lactate Level 10/05/18 03:30: Lactic Acid Level 1.65 Lactic Acid Level Laboratory Tests Test 10/05/18 03:30 Lactic Acid Level 1.65 MMOL/L (0.50-2.00) Procedures/Interventions Date of ETT Placement: Mar 09, 2017 Time of ETT Placement: 1811 Suture Size: 5-0 Progress/Results/Core Measures Suspected Sepsis SIRS Temperature: Pulse: Respiratory Rate: Laboratory Tests 10/05/18 03:30: White Blood Count 15.3H Blood Pressure / Mean: 10/05/18 03:30: Lactic Acid Level 1.65 Laboratory Tests 10/05/18 03:30: Creatinine 0.83, INR Comment 0.9, Platelet Count 317, Total Bilirubin 0.2 Results/Orders Lab Results Laboratory Tests Test 10/05/18 03:30 10/05/18 03:55 Range/Units White Blood Count 15.3 H 4.3-11.0 10^3/uL Red Blood Count 4.60 4.35-5.85 10^6/uL Hemoglobin 12.0 L 13.3-17.7 G/DL Hematocrit 37 L 40-54 % Mean Corpuscular Volume 81 80-99 FL Mean Corpuscular Hemoglobin 26 25-34 PG Mean Corpuscular Hemoglobin Concent 32 32-36 G/DL Red Cell Distribution Width 16.6 H 10.0-14.5 % Platelet Count 317 130-400 10^3/uL Mean Platelet Volume 8.4 7.4-10.4 FL Neutrophils (%) (Auto) 86 H 42-75 % Lymphocytes (%) (Auto) 7 L 12-44 % Monocytes (%) (Auto) 7 0-12 % Eosinophils (%) (Auto) 0 0-10 % Basophils (%) (Auto) 0 0-10 % Neutrophils # (Auto) 13.2 H 1.8-7.8 X 10^3 Lymphocytes # (Auto) 1.0 1.0-4.0 X 10^3 Monocytes # (Auto) 1.1 H 0.0-1.0 X 10^3 Eosinophils # (Auto) 0.0 0.0-0.3 10^3/uL Basophils # (Auto) 0.0 0.0-0.1 10^3/uL Neutrophils % (Manual) 88 % Lymphocytes % (Manual) 5 % Monocytes % (Manual) 7 % Anisocytosis SLIGHT Prothrombin Time 13.0 12.2-14.7 SEC INR Comment 0.9 0.8-1.4 Activated Partial Thromboplast Time 38 H 24-35 SEC Blood Gas Puncture Site RIGHT TADIAL Blood Gas Patient Temperature 100.9 Arterial Blood pH 7.41 7.37-7.43 Arterial Blood Partial Pressure CO2 45 35-45 MMHG Arterial Blood Partial Pressure O2 69 L 79-93 MMHG Arterial Blood HCO3 28 H 23-27 MMOL/L Arterial Blood Total CO2 29.3 21.0-31.0 MMOL/L Arterial Blood Oxygen Saturation 92 L 94-100 % Arterial Blood Base Excess 3.9 H -2.5-2.5 MMOL/L Johan Test POSITIVE Blood Gas Ventilator Setting NO Blood Gas Inspired Oxygen 40% BIPAP Sodium Level 134 L 135-145 MMOL/L Potassium Level 4.6 3.6-5.0 MMOL/L Chloride Level 96 L 98-107 MMOL/L Carbon Dioxide Level 28 21-32 MMOL/L Anion Gap 10 5-14 MMOL/L Blood Urea Nitrogen 13 7-18 MG/DL Creatinine 0.83 0.60-1.30 MG/DL Estimat Glomerular Filtration Rate > 60 BUN/Creatinine Ratio 16 Glucose Level 140 H 70-105 MG/DL Lactic Acid Level 1.65 0.50-2.00 MMOL/L Calcium Level 9.3 8.5-10.1 MG/DL Corrected Calcium 9.0 8.5-10.1 MG/DL Total Bilirubin 0.2 0.1-1.0 MG/DL Aspartate Amino Transf (AST/SGOT) 12 5-34 U/L Alanine Aminotransferase (ALT/SGPT) 11 0-55 U/L Alkaline Phosphatase 166 H 40-136 U/L C-Reactive Protein High Sensitivity 4.88 H 0.00-0.50 MG/DL B-Type Natriuretic Peptide 171.2 H <100.0 PG/ML Total Protein 7.8 6.4-8.2 GM/DL Albumin 4.4 3.2-4.5 GM/DL Urine Color YELLOW Urine Clarity CLEAR Urine pH 7 5-9 Urine Specific [place] 1.010 L 1.016-1.022 Urine Protein 2+ H NEGATIVE Urine Glucose (UA) NEGATIVE NEGATIVE Urine Ketones NEGATIVE NEGATIVE Urine Nitrite NEGATIVE NEGATIVE Urine Bilirubin NEGATIVE NEGATIVE Urine Urobilinogen NORMAL NORMAL MG/DL Urine Leukocyte Esterase 1+ H NEGATIVE Urine RBC (Auto) NEGATIVE NEGATIVE Urine RBC NONE /HPF Urine WBC RARE /HPF Urine Squamous Epithelial Cells 0-2 /HPF Urine Crystals NONE /LPF Urine Bacteria TRACE /HPF Urine Casts NONE /LPF Urine Mucus NEGATIVE /LPF Urine Culture Indicated CULTURE PENDING My Orders Orders - STEFAN HERNANDEZ MD Cbc With Automated Diff (10/05/18 03:20) Comprehensive Metabolic Panel (10/05/18 03:20) Blood Culture (10/05/18 03:20) Sputum Culture (10/05/18 03:20) Urinalysis (10/05/18 03:20) Urine Culture (10/05/18 03:20) Protime With Inr (10/05/18 03:20) Partial Thromboplastin Time (10/05/18 03:20) Chest 1 View, Ap/Pa Only (10/05/18 03:20) Ed Iv/Invasive Line Start (10/05/18 03:20) Ed Iv/Invasive Line Start (10/05/18 03:20) Vital Signs Adult Sepsis Patie Q15M (10/05/18 03:20) O2 (10/05/18 03:20) Remove Rings In Anticipation O (10/05/18 03:20) Lactic Acid Analyzer (10/05/18 03:20) Methylprednisolone Sod Succ (Solu-Medrol (10/05/18 03:30) BNP (10/05/18 03:20) Hs C Reactive Protein (10/05/18 03:20) Bipap (Bilevel) Set Up (10/05/18 03:20) Albuterol Pre-Mix Nebs (Rt) (Proventil (10/05/18 03:20) Albuterol/Ipra Inhalation Soln (Duoneb I (10/05/18 03:30) Svn Small Volume Nebulizer (10/05/18 03:20) Svn Small Volume Nebulizer (10/05/18 03:20) Arterial Blood Gas (10/05/18 03:22) Albuterol Pre-Mix Nebs (Rt) (Proventil (10/05/18 03:17) Albuterol/Ipra Inhalation Soln (Duoneb I (10/05/18 03:17) Piperacillin/Tazobactam (Bulk) (Zosyn In (10/05/18 03:30) Ns Iv 1000 Ml (Sodium Chloride 0.9%) (10/05/18 03:29) Manual Differential (10/05/18 03:30) Piperacillin Sodium/Tazobactam (Zosyn Vi (10/05/18 03:41) Ns (Ivpb) (Sodium Chloride 0.9% Ivpb Bag (10/05/18 03:52) Arterial Blood Draw (10/05/18 03:33) Acetaminophen Tablet (Tylenol Tablet) (10/05/18 05:15) Acetaminophen Tablet (Tylenol Tablet) (10/05/18 05:30) Medications Given in ED Current Medications Medications Dose Ordered Sig/Porfirio Route Start Time Stop Time Status Last Admin Dose Admin Albuterol/ Ipratropium 3 ml ONCE ONCE INH 10/05/18 03:30 10/05/18 03:31 DC 10/05/18 03:00 3 ML Methylprednisolone Sodium Succinate 125 mg ONCE ONCE IVP 10/05/18 03:30 10/05/18 03:31 DC 10/05/18 03:40 125 MG Piperacillin Sod/ Tazobactam Sod 4.5 gm STK-MED ONCE IV 10/05/18 03:41 10/05/18 03:47 DC 10/05/18 04:05 4.5 GM Sodium Chloride 100 ml @ ud STK-MED ONCE .ROUTE 10/05/18 03:52 10/05/18 03:58 DC 10/05/18 04:06 100 MLS/HR Sodium Chloride 1,000 ml @ 0 mls/hr Q0M ONCE IV 10/05/18 03:29 10/05/18 03:30 DC 10/05/18 03:40 0 MLS/HR Vital Signs/I&O 10/05/18 10/05/18 10/05/18 10/05/18 03:15 03:15 03:49 04:08 Temp 100.4 100.4 Pulse 109 109 80 Resp 30 14 20 B/P (MAP) 174/104 (127) 174/104 (127) Pulse Ox 90 91 91 93 O2 Delivery NIV Bilevel NIV Bilevel NIV/Bilevel O2 Flow Rate 30.00 FiO2 30 Capillary Refill : Progress Note : Progress Note Patient was immediately seen and examined. He was started on an hour-long nebulizer treatment with BiPAP support. Solu-Medrol 125 mg was administered. No definite source of infection was identified but Zosyn was given empirically after blood cultures and lactic acid were drawn. A liter of IV fluid was also administered. Tylenol was given for fever. Patient was stable on BiPAP throughout his ER stay. Patient was eventually transferred to [facility] due to calcified diversion at [facility]. ECG Initial ECG Impression Date: Oct 05, 2018 Initial ECG Impression Time: 03:23 Initial ECG Rate: 105 Initial ECG Rhythm: S.Tach Comment Sinus tachycardia with no ST elevation or depression. No abnormal intervals or axis deviation. Diagnostic Imaging Diagonstic Imaging: Xray Plain Films/CT/US/NM/MRI: chest Comments Chest x-ray viewed by me. Report not yet available. Compared with prior. Questionable infiltrate in the left lower lung but relatively unchanged from prior. Departure Impression Primary Impression: Respiratory failure Qualified Codes: J96.20 - Acute and chronic respiratory failure, unspecified whether with hypoxia or hypercapnia Additional Impression: COPD exacerbation Disposition: XFER SHT-TRM HOSP Condition: Stable Transfer Time Spoke to Accepting Phy: 03:30 Transfer Progress Notes Patient accepted by Dr. Covington at [facility]. Transfer Time: 05:32 Transfer Facility: [place], [place] Method of Transfer: EMS Departure-Patient Inst. Referrals: AMANDEEP GENAO DO (PCP/Family) Primary Care Physician STEFAN HERNANDEZ MD Oct 05, 2018 03:44
[2018-10-05] MEDS ORDERED: NS (IVPB) 100 ML ONE (03:52)
[2018-10-05 03:58] LABS: INR 0.9 (0.8-1.4)
[2018-10-05 04:05] LABS: ALANINE AMINOTRANSFERASE 11 U/L (0-55); ALBUMIN 4.4 GM/DL (3.2-4.5); ALKALINE PHOSPHATASE 166 U/L (40-136); BILIRUBIN,TOTAL 0.2 MG/DL (0.1-1.0); BUN/CREATININE RATIO 16; CALCIUM 9.3 MG/DL (8.5-10.1); CARBON DIOXIDE 28 MMOL/L (21-32); CHLORIDE 96 MMOL/L (98-107); CREATININE SERUM 0.83 MG/DL (0.60-1.30); GFR ESTIMATED > 60; GLUCOSE 140 MG/DL (70-105); POTASSIUM 4.6 MMOL/L (3.6-5.0); SODIUM 134 MMOL/L (135-145); TOTAL PROTEIN 7.8 GM/DL (6.4-8.2)
[2018-10-05 04:07] LABS: BILIRUBIN,URINE NEGATIVE (NEGATIVE); CLARITY,URINE CLEAR; COLOR,URINE YELLOW; GLUCOSE, URINE (UA) NEGATIVE (NEGATIVE); KETONES,URINE NEGATIVE (NEGATIVE); LEUKOCYTE ESTERASE ,URINE 1+ (NEGATIVE); NITRITE,URINE NEGATIVE (NEGATIVE); PH,URINE 7 (5-9); PROTEIN,URINE 2+ (NEGATIVE); UROBILINOGEN,URINE NORMAL (NORMAL)
--- NOTE | 2018-10-05 04:13 | NUR ---
Patient is resting comfortably at this time and tolerating bipap well. Pt. is now able to speak in short sentences and states his work of breathing has improved.
--- NOTE | 2018-10-05 04:14 | NUR ---
Bipap settings /, rate of 12, 30% FIo2
--- NOTE | 2018-10-05 04:50 | NUR ---
[facility] shift captain contacted for patient transport.
[2018-10-05 04:51] LABS: BACTERIA,URINE TRACE /HPF; SQUAMOUS EPITHELIAL CELL,UR 0-2 /HPF; WBC,URINE RARE /HPF
[2018-10-05] MEDS ORDERED: ACETAMINOPHEN 500 MG TAB (TYLENOL) PO ONE ×2 (05:15→05:30)
--- NOTE | 2018-10-05 05:15 | NUR ---
Report called to Marly STRONG at [place].
[2018-10-05 05:24] LABS: ANISOCYTOSIS SLIGHT; LYMPHOCYTES % (MANUAL) 5 %; MONOCYTES % (MANUAL) 7 %; NEUTROPHILS % (MANUAL) 88 %
--- NOTE | 2018-10-05 05:27 | NUR ---
[facility] EMS arrival.
[2018-10-05 05:37] VITALS: BP 137/76
--- NOTE | 2018-10-05 07:00 | Diagnostic Imaging Report ---
INDICATION: Shortness of air, COPD and lung cancer. TECHNIQUE: Single frontal view of the chest. COMPARISON: 09/04/2018. FINDINGS: The right-sided Port-A-Cath tip projects over the low SVC. There are bibasilar airspace opacities, stable on the right and increased on the left. No pleural effusion or pneumothorax is seen. The cardiac silhouette is normal in size. There are advanced degenerative changes in the glenohumeral joints bilaterally. No acute osseous abnormality is seen. IMPRESSION: 1. Increased left basilar airspace opacities, may represent atelectasis or infiltrate. 2. Stable right basilar airspace opacity which likely represent atelectasis or scarring. Dictated by: Dictated on workstation # [id number]
== END 2018-10-05 05:43 | disposition short-term general hospital (02) ==
LOC: EDUNIT# 03:09 → ER 03:11
DX: J96.90 Respiratory failure, unspecified, unspecified whether with hypoxia or hypercapnia (principal); J44.1 Chronic obstructive pulmonary disease with (acute) exacerbation; J45.909 Unspecified asthma, uncomplicated; G47.30 Sleep apnea, unspecified; I10 Essential (primary) hypertension; E78.00 Pure hypercholesterolemia, unspecified; G40.909 Epilepsy, unspecified, not intractable, without status epilepticus; G62.9 Polyneuropathy, unspecified; Z85.118 Personal history of other malignant neoplasm of bronchus and lung; Z87.01 Personal history of pneumonia (recurrent); Z88.6 Allergy status to analgesic agent; Z99.81 Dependence on supplemental oxygen; Z79.51 Long term (current) use of inhaled steroids; Z87.891 Personal history of nicotine dependence; Z82.49 Family history of ischemic heart disease and other diseases of the circulatory system
CPT/HCPCS: 36415; 36600; 71045; 80053; 81000; 82805; 83605; 83880; 85007; 85027; 85610; 85730; 86141; 87040; 87088; 94640; 94660; 96361; 96374; 96375

== ENCOUNTER 2018-10-22 13:30 | Outpatient (RCR) | payer MEDICAID, MEDICARE ==
[2018-08-19 13:37] LABS: BASOPHILS % (AUTO) 0 % (0-10); EOSINOPHILS % (AUTO) 0 % (0-10); HEMATOCRIT 34 % (40-54); HEMOGLOBIN 11.1 G/DL (13.3-17.7); LYMPHOCYTES # (AUTO) 0.4 X 10^3 (1.0-4.0); LYMPHOCYTES % (AUTO) 5 % (12-44); MEAN CORPUSCULAR HEMOGLOBIN 26 PG (25-34); MEAN CORPUSCULAR HGB CONC 33 G/DL (32-36); MEAN CORPUSCULAR VOLUME 81 FL (80-99); MEAN PLATELET VOLUME 8.6 FL (7.4-10.4); MONOCYTES # (AUTO) 0.3 X 10^3 (0.0-1.0); MONOCYTES % (AUTO) 3 % (0-12); NEUTROPHILS # (AUTO) 8.3 X 10^3 (1.8-7.8); NEUTROPHILS % (AUTO) 92 % (42-75); PLATELET COUNT 266 10^3/uL (130-400); RED CELL DISTRIBUTION WIDTH 13.7 % (10.0-14.5)
[2018-08-19 13:56] LABS: ALANINE AMINOTRANSFERASE 12 U/L (0-55); ALBUMIN 4.2 GM/DL (3.2-4.5); ALKALINE PHOSPHATASE 148 U/L (40-136); BILIRUBIN,TOTAL 0.2 MG/DL (0.1-1.0); BUN/CREATININE RATIO 13; CALCIUM 9.1 MG/DL (8.5-10.1); CARBON DIOXIDE 25 MMOL/L (21-32); CHLORIDE 95 MMOL/L (98-107); CREATININE SERUM 0.76 MG/DL (0.60-1.30); GFR ESTIMATED > 60; GLUCOSE 123 MG/DL (70-105); POTASSIUM 4.6 MMOL/L (3.6-5.0); SODIUM 132 MMOL/L (135-145); TOTAL PROTEIN 7.6 GM/DL (6.4-8.2)
[2018-09-24 14:15] LABS: BASOPHILS % (AUTO) 0 % (0-10); EOSINOPHILS % (AUTO) 0 % (0-10); HEMATOCRIT 38 % (40-54); HEMOGLOBIN 12.2 G/DL (13.3-17.7); LYMPHOCYTES # (AUTO) 0.8 X 10^3 (1.0-4.0); LYMPHOCYTES % (AUTO) 13 % (12-44); MEAN CORPUSCULAR HEMOGLOBIN 26 PG (25-34); MEAN CORPUSCULAR HGB CONC 32 G/DL (32-36); MEAN CORPUSCULAR VOLUME 81 FL (80-99); MONOCYTES # (AUTO) 0.9 X 10^3 (0.0-1.0); MONOCYTES % (AUTO) 14 % (0-12); NEUTROPHILS # (AUTO) 4.6 X 10^3 (1.8-7.8); NEUTROPHILS % (AUTO) 73 % (42-75); PLATELET COUNT 228 10^3/uL (130-400); RED CELL DISTRIBUTION WIDTH 15.7 % (10.0-14.5); WHITE BLOOD COUNT 6.3 10^3/uL (4.3-11.0)
[2018-09-24 14:35] LABS: ALANINE AMINOTRANSFERASE 8 U/L (0-55); ALBUMIN 4.4 GM/DL (3.2-4.5); ALKALINE PHOSPHATASE 194 U/L (40-136); BILIRUBIN,TOTAL 0.3 MG/DL (0.1-1.0); BUN/CREATININE RATIO 13; CALCIUM 9.2 MG/DL (8.5-10.1); CARBON DIOXIDE 26 MMOL/L (21-32); CHLORIDE 95 MMOL/L (98-107); GFR ESTIMATED > 60; GLUCOSE 136 MG/DL (70-105); POTASSIUM 4.6 MMOL/L (3.6-5.0); SODIUM 131 MMOL/L (135-145); TOTAL PROTEIN 7.4 GM/DL (6.4-8.2)
[~2018-10-22] VITALS: Ht 180.3 cm; Wt 76.2 kg
[~2018-10-22 13:30] MED LIST changes: +NIVOLUMAB 480 MG in NS (IVPB) CANCER CENTER 100 ML IV SCH; +NS IV 1000 ML (CANCER CTR) IV SCH; -OMEP20CA12 PO; +OMEP20CA13 PO
[2018-10-22 13:43] LABS: BASOPHILS % (AUTO) 0 % (0-10); EOSINOPHILS % (AUTO) 0 % (0-10); HEMATOCRIT 36 % (40-54); HEMOGLOBIN 11.5 G/DL (13.3-17.7); LYMPHOCYTES # (AUTO) 0.7 X 10^3 (1.0-4.0); LYMPHOCYTES % (AUTO) 10 % (12-44); MEAN CORPUSCULAR HEMOGLOBIN 26 PG (25-34); MEAN CORPUSCULAR HGB CONC 32 G/DL (32-36); MEAN CORPUSCULAR VOLUME 82 FL (80-99); MEAN PLATELET VOLUME 9.1 FL (7.4-10.4); MONOCYTES # (AUTO) 0.8 X 10^3 (0.0-1.0); MONOCYTES % (AUTO) 11 % (0-12); NEUTROPHILS # (AUTO) 6.1 X 10^3 (1.8-7.8); NEUTROPHILS % (AUTO) 80 % (42-75); PLATELET COUNT 277 10^3/uL (130-400); RED CELL DISTRIBUTION WIDTH 17.7 % (10.0-14.5); WHITE BLOOD COUNT 7.7 10^3/uL (4.3-11.0)
[2018-10-22 14:05] LABS: ALANINE AMINOTRANSFERASE 13 U/L (0-55); ALBUMIN 4.3 GM/DL (3.2-4.5); ALKALINE PHOSPHATASE 152 U/L (40-136); BILIRUBIN,TOTAL 0.3 MG/DL (0.1-1.0); BUN/CREATININE RATIO 15; CALCIUM 9.8 MG/DL (8.5-10.1); CARBON DIOXIDE 27 MMOL/L (21-32); CHLORIDE 96 MMOL/L (98-107); CREATININE SERUM 0.79 MG/DL (0.60-1.30); GFR ESTIMATED > 60; GLUCOSE 110 MG/DL (70-105); POTASSIUM 4.6 MMOL/L (3.6-5.0); SODIUM 133 MMOL/L (135-145); TOTAL PROTEIN 7.5 GM/DL (6.4-8.2)
[2018-10-22] MEDS ORDERED: NS IV 500 ML (CANCER CENTER) 500 ML ONE (14:06)
== END 2018-11-17 | disposition home or self-care (01) ==
LOC: ONC 13:30
PROVIDERS: ATTEND Internal Medicine Hematology & Oncology
DX: Z51.11 Encounter for antineoplastic chemotherapy (principal); C34.12 Malignant neoplasm of upper lobe, left bronchus or lung; C79.51 Secondary malignant neoplasm of bone; J43.9 Emphysema, unspecified; G40.909 Epilepsy, unspecified, not intractable, without status epilepticus; E78.5 Hyperlipidemia, unspecified; Z87.891 Personal history of nicotine dependence; Z79.899 Other long term (current) drug therapy
CPT/HCPCS: 36591; 80053; 84443; 85025; 96413

== ENCOUNTER → 2018-11-17 | Outpatient (CLI) | payer MEDICARE, MEDICAID ==
[~2018-11-17] MED LIST changes: -NIVOLUMAB 480 MG in NS (IVPB) CANCER CENTER 100 ML IV SCH; -NS IV 1000 ML (CANCER CTR) IV SCH
== END ==
LOC: LAB 15:42
PROVIDERS: ATTEND Family Medicine
DX: R56.9 Unspecified convulsions (principal)
CPT/HCPCS: 36415; 80156; 80185

== ENCOUNTER 2018-11-25 15:52 | Emergency (ER) | payer MEDICARE, MEDICAID ==
[~2018-11-25] VITALS: Ht 182.9 cm; Wt 78.9 kg
--- NOTE | 2018-11-25 16:11 | NUR ---
amb to ft 1. placed on wall o2. states that he has had a cough and has not felt well, coughing but not productive. also states that in addition, he has fallen twice today, once at 3 am and stuck his head. states that he broke his neck before and could we check to make sure he did not rebreak it because his neck is sore. He is unsure why he fell. Rigid c collr in place, transported per wc to trauma room 1
--- NOTE | 2018-11-25 16:47 | ED Respiratory ---
General Chief Complaint: Respiratory Problems Stated Complaint: CONGESTION, COUGH Nursing Triage Note: AMB TO ROOM WITH 02 ON PMH OF LUNG CA HAS BEEN EXPOSED TO SOMEONE WHO HAS URI LAST CHEMO WAS FRIDAY. History of Present Illness Date Seen by Provider: Nov 25, 2018 Time Seen by Provider: 16:15 Initial Comments 63-year-old male presents for upper respiratory congestion. He also reports 2 falls in the last 12 hours, no loss of consciousness. He has a C2 fracture that is being followed by orthopedics. He is no longer wearing a c- collar. He denies any radicular paresthesia symptoms in his upper extremities. C-collar placed by the nurse. Timing/Duration: this morning Prior Episodes/Possible Cause: occasional episodes Associated Symptoms: No chest pain/soreness; cough; No dizziness, No facial pain, No fever/chills, No headache, No lightheadedness, No muscle aches; nasal congestion; No nasal drainage; shortness of breath; No sinus infection, No sore throat, No wheezing Allergies and Home Medications Allergies Coded Allergies: aspirin (Unverified Allergy, Mild, DOES NOT WORK WELL W/ OTHER MEDS, 10/05/18) ibuprofen (Unverified Allergy, Mild, 10/05/18) Home Medications Albuterol Sulfate 2.5 Mg/3 Ml Vial.neb, 2.5 MG NEB QID, (Reported) Albuterol Sulfate 1 Puff Puff, 2 PUFF IH Q6H PRN for SHORTNESS OF BREATH, (Reported) 1 PUFF = 90 MCG Amlodipine Besylate 5 Mg Tablet, 5 MG PO 0800, (Reported) LAST FILLED #90 12-25-17 Atorvastatin Calcium 20 Mg Tablet, 20 MG PO 0300 Prescribed by: FRAN DELACRUZ on 06/26/18 1254 Carbamazepine 200 Mg Tablet, 200 MG PO 0800,2300,0300, (Reported) Carbamazepine 200 Mg Tablet, 400 MG PO 1500, (Reported) TAKES 2 (200 MG) TABLETS Cefdinir 300 Mg Capsule, 300 MG PO BID Prescribed by: FRAN DELACRUZ on 06/26/18 1254 Cefdinir 300 Mg Capsule, 300 MG PO BID Prescribed by: ERIN ETIENNE on 07/24/18 1157 Fluticasone/Salmeterol 12 Gm Hfa.aer.ad, 2 PUFF INH BID, (Reported) Gabapentin 300 Mg Capsule, 300 MG PO 2300, (Reported) Gabapentin 600 Mg Tablet, 600 MG PO 0800,1500, (Reported) Hydrocodone Bit/Acetaminophen 1 Tab Tab, 0.5 EACH PO Q4-6HR PRN for PAIN- MODERATE Prescribed by: NESTOR AVILEZ on 08/12/18 1850 Hydrocodone/Acetaminophen 1 Each Tablet, 1 TAB PO TID PRN for PAIN-MODERATE, (Reported) Lamotrigine 100 Mg Tablet, 100 MG PO 1500,2300, (Reported) Lamotrigine 25 Mg Tablet, 25 MG PO 1500,0300, (Reported) Lisinopril 20 Mg Tablet, 20 MG PO 0300, (Reported) LAST FILLED #90 12-25-17 Meloxicam 7.5 Mg Tablet, 7.5 MG PO DAILY, (Reported) Omeprazole 20 Mg Capsule.dr, 20 MG PO DAILY PRN for HEARTBURN, (Reported) Ondansetron 4 Mg Tab.rapdis, 4 MG PO TID PRN for NAUSEA/VOMITING-1ST LINE, (Reported) Phenytoin Sodium Extended 100 Mg Capsule, 200 MG PO 0800,1500, (Reported) LAST FILLED A 90 DAY SUPPLY 12-22-17 TAKES 2 (100 MG) CAPSULES Phenytoin Sodium Extended 100 Mg Capsule, 100 MG PO 2300, (Reported) LAST FILLED A 90 DAY SUPPLY 12-22-17 Tiotropium Watson 1 Inh Aerp, 1 CAP IH DAILY, (Reported) Patient Home Medication List Home Medication List Reviewed: Yes Review of Systems Review of Systems Constitutional: no symptoms reported, see HPI Respiratory: see HPI, cough; No short of breath All Other Systems Reviewed Negative Unless Noted: Yes Past Pmeawhe-Insweg-Nguzzm Hx Past Med/Social Hx: Reviewed Nursing Past Med/Soc Hx Patient Social History Alcohol Use: Denies Use Recreational Drug Use: Yes (not current, 15 years ago-ETOH and PO drugs) Drug of Choice: HX OF RX DRUG ABUSE, CLAIMS NONE 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 Smoking Status: Current Everyday Smoker Type Used: Cigars, Cigarettes Former Smoker, Quit: May 01, 2017 2nd Hand Smoke Exposure: No Recent Foreign Travel: No Contact w/Someone Who Travel: No Recent Infectious Disease Expo: No Recent Hopitalizations: No Physical Abuse: No Sexual Abuse: No Mistreated: No Fear: No Immunizations Up To Date Tetanus Booster (TDap): Unknown PED Vaccines UTD: Yes Date of Influenza Vaccine: Apr 21, 2018 Seasonal Allergies Seasonal Allergies: Yes Past Medical History Surgeries: Yes (PORT RIGHT CHEST; CT GUIDED BX OF FEMUR; BILATERAL CATARACT SURGERY) Eye Surgery, Gallbladder Respiratory: Yes Asthma, Pneumonia, Chronic Bronchitis, Sleep Apnea, COPD Currently Using CPAP: No Currently Using BIPAP: No Cardiac: Yes Heart Murmur, High Cholesterol, Hypertension, Valvular Heart Disease 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) Neuropathy, Seizure Disorder, Vertigo Reproductive Disorders: No Sexually Transmitted Disease: No HIV/AIDS: No Genitourinary: No Gastrointestinal: Yes (CHRONIC NAUSEA/VOMITING) Musculoskeletal: Yes (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) Arthritis, Fractures Endocrine: No HEENT: No Loss of Vision: Denies Hearing Impairment: Denies Cancer: Yes Lung Did You Recieve Any Treatments: Yes What Type of Treatment Did You: Chemotherapy Psychosocial: No Integumentary: No Blood Disorders: No Adverse Reaction/Blood Tranf: No Family Medical History Hypercholesterolemia 19 FATHER Hypertension 19 FATHER Physical Exam Vital Signs - First Documented 11/25/18 11/25/18 15:56 18:11 Temp 98.7 Pulse 74 Resp 18 B/P (MAP) 166/92 (116) Pulse Ox 97 O2 Delivery Nasal Cannula O2 Flow Rate 3.00 Capillary Refill : Less Than 3 Seconds Height: 6'0" Weight: 174lbs. 3.0oz. 78.414791mn; 24.2 BMI Method:Stated General Appearance: WD/WN, no apparent distress HEENT: PERRL/EOMI, normal ENT inspection, TMs normal, pharynx normal Neck: full range of motion, supple, normal inspection, tender lateral (left) Respiratory: chest non-tender, lungs clear, normal breath sounds, no respiratory distress Cardiovascular: normal peripheral pulses, regular rate, rhythm Gastrointestinal: normal bowel sounds, non tender, soft Neurologic/Psychiatric: no motor/sensory deficits (except for pre-existing deficits from polio to left UE. ), alert, normal mood/affect, oriented x 3 Skin: normal color, warm/dry Procedures/Interventions Date of ETT Placement: Mar 09, 2017 Time of ETT Placement: 1811 Suture Size: 5-0 Progress/Results/Core Measures Suspected Sepsis Recent Fever Within 48 Hours: No Infection Criteria Present: Suspected New Infection New/Unexplained Altered Menta: No Sepsis Screen: No Definite Risk SIRS Temperature:98.7 Pulse: 74 Respiratory Rate: 18 Laboratory Tests 11/25/18 16:40: White Blood Count 7.9 Blood Pressure 166 /92 Mean: 116 Laboratory Tests 11/25/18 16:40: Creatinine 0.71, Platelet Count 235, Total Bilirubin 0.2 Results/Orders Lab Results Laboratory Tests Test 11/25/18 16:40 Range/Units White Blood Count 7.9 4.3-11.0 10^3/uL Red Blood Count 4.06 L 4.35-5.85 10^6/uL Hemoglobin 11.4 L 13.3-17.7 G/DL Hematocrit 34 L 40-54 % Mean Corpuscular Volume 84 80-99 FL Mean Corpuscular Hemoglobin 28 25-34 PG Mean Corpuscular Hemoglobin Concent 33 32-36 G/DL Red Cell Distribution Width 18.2 H 10.0-14.5 % Platelet Count 235 130-400 10^3/uL Mean Platelet Volume 8.7 7.4-10.4 FL Neutrophils (%) (Auto) 72 42-75 % Lymphocytes (%) (Auto) 10 L 12-44 % Monocytes (%) (Auto) 17 H 0-12 % Eosinophils (%) (Auto) 0 0-10 % Basophils (%) (Auto) 0 0-10 % Neutrophils # (Auto) 5.7 1.8-7.8 X 10^3 Lymphocytes # (Auto) 0.8 L 1.0-4.0 X 10^3 Monocytes # (Auto) 1.4 H 0.0-1.0 X 10^3 Eosinophils # (Auto) 0.0 0.0-0.3 10^3/uL Basophils # (Auto) 0.0 0.0-0.1 10^3/uL Sodium Level 131 L 135-145 MMOL/L Potassium Level 4.6 3.6-5.0 MMOL/L Chloride Level 95 L 98-107 MMOL/L Carbon Dioxide Level 30 21-32 MMOL/L Anion Gap 6 5-14 MMOL/L Blood Urea Nitrogen 10 7-18 MG/DL Creatinine 0.71 0.60-1.30 MG/DL Estimat Glomerular Filtration Rate > 60 BUN/Creatinine Ratio 14 Glucose Level 120 H 70-105 MG/DL Calcium Level 8.9 8.5-10.1 MG/DL Corrected Calcium 8.7 8.5-10.1 MG/DL Total Bilirubin 0.2 0.1-1.0 MG/DL Aspartate Amino Transf (AST/SGOT) 14 5-34 U/L Alanine Aminotransferase (ALT/SGPT) 14 0-55 U/L Alkaline Phosphatase 174 H 40-136 U/L Total Protein 7.2 6.4-8.2 GM/DL Albumin 4.2 3.2-4.5 GM/DL My Orders Orders - FAVIAN COWART Ct Head/Cervical Spine Wo (11/25/18 16:25) Chest Pa/Lat (2 View) (11/25/18 16:25) Cbc With Automated Diff (11/25/18 16:25) Comprehensive Metabolic Panel (11/25/18 16:25) Vital Signs/I&O 11/25/18 11/25/18 15:56 18:11 Temp 98.7 Pulse 74 72 Resp 18 18 B/P (MAP) 166/92 (116) 138/78 (98) Pulse Ox 97 96 O2 Delivery Nasal Cannula Nasal Cannula O2 Flow Rate 3.00 Capillary Refill : Less Than 3 Seconds Blood Pressure Mean: 116 Progress Note : Time: 16:15 Progress Note Patient seen and evaluated, will obtain labs and CT of the head and neck. [address] negative for acute findings, and C-Collar removed. Patient had decreased pain in the left lateral cervical spine. Good range of motion to the C-spine with no radicular or paresthesia symptoms in the upper extremities. 1750 discharge instructions and return precautions reviewed. Diagnostic Imaging Diagonstic Imaging: CT Comments CT HEAD/CERVICAL SPINE WO PROCEDURE: CT head and CT cervical spine without contrast. TECHNIQUE: Multiple contiguous axial images were obtained through the brain and cervical spine without the use of intravenous contrast. Sagittal and coronal reformations through the cervical spine were then performed. Auto Exposure Controls were utilized during the CT exam to meet ALARA standards for radiation dose reduction. INDICATION: Falls, weakness, head and neck pain, and history of lung cancer. COMPARISON: Exam is compared with a prior 09/04/2018. FINDINGS: CT head: Some chronic right hemispheric volume loss likely accounts for prominence of extra-axial fluid along the frontoparietal convexity as well as along the sylvian fissure and compensatory enlargement of the right lateral ventricle. This is an unchanged finding. There is no evidence for intracerebral hemorrhage. No focal cortical edema. No evidence for elevated pressures. No acute extra-axial collection. No calvarial fracture deformity identified. There is no hemosinus. CT cervical spine: An unhealed odontoid fracture with marginal osteolysis and erosive features show no bony bridging and is in stable alignment. This is unchanged from multiple priors. Also unchanged multilevel grade 1 degenerative listhesis anteriorly C3 on C4 and C5 on C6 and retrolisthesis of C6 on C7. Some chronic C6 vertebral stature loss stable. Hypertrophic facet arthrosis throughout the cervical spine chronic. No new fracture identified. There is heavy vascular calcification of the carotids chronic. IMPRESSION: CT head: Stable chronic findings. No acute posttraumatic sequelae. CT cervical spine: Unhealed odontoid fracture with fragmental diastasis, osteolysis, and lucencies unchanged. No bony bridging. No new fracture. Spondylosis, facet arthrosis, and multilevel stable grade 1 degenerative listhesis unchanged. No new pathology. Dictated on workstation # [id number] Dict: 11/25/18 1700 Trans: 11/25/18 1722 [id number] Interpreted by: AUSTEN COLEMAN Electronically signed by: Reviewed: Reviewed by Hi Diagonstic Imaging: Xray Plain Films/CT/US/NM/MRI: chest Comments CHEST PA/LAT (2 VIEW) INDICATION: Dyspnea. History of lung cancer. COMPARISON: 10/05/2018. FINDINGS: Stable right IJ Port-A-Cath. Chronic linear opacities in the lung bases are similar. No new airspace consolidations. No pleural effusion or pneumothorax. Heart remains normal in size. Tortuous aorta is unchanged. IMPRESSION: 1. No acute cardiopulmonary process. 2. Stable chronic pulmonary changes within the lung bases, greater on the right. Dictated on workstation # [id number] Dict: 11/25/18 1711 Trans: 11/25/18 1714 [id number] Reviewed: Reviewed by Me Departure Impression Primary Impression: Fall Qualified Codes: W19.XXXA - Unspecified fall, initial encounter Additional Impressions: Viral upper respiratory illness Cervical spine fracture Qualified Codes: S12.121G - Other nondisplaced dens fracture, subsequent encounter for fracture with delayed healing Disposition: 01 HOME, SELF-CARE Condition: Improved Departure-Patient Inst. Decision time for Depature: 17:50 Referrals: AMANDEEP GENAO DO (PCP/Family) Primary Care Physician Patient Instructions: Preventing Falls, Viral Upper Respiratory Infection, Adult (DC) Add. Discharge Instructions: Take Muccinex 1 tablet twice daily with full glass of water. Keep your scheduled follow-up for your cervical fracture. Follow-up with Dr. Genao symptoms are not improving or worsen. Return to emergency department for new, urgent health care problems. All discharge instructions reviewed with patient and/or family. Voiced understanding. FAVIAN COWART Nov 25, 2018 16:47
[2018-11-25 16:48] LABS: BASOPHILS % (AUTO) 0 % (0-10); EOSINOPHILS % (AUTO) 0 % (0-10); HEMATOCRIT 34 % (40-54); HEMOGLOBIN 11.4 G/DL (13.3-17.7); LYMPHOCYTES # (AUTO) 0.8 X 10^3 (1.0-4.0); LYMPHOCYTES % (AUTO) 10 % (12-44); MEAN CORPUSCULAR HEMOGLOBIN 28 PG (25-34); MEAN CORPUSCULAR HGB CONC 33 G/DL (32-36); MEAN CORPUSCULAR VOLUME 84 FL (80-99); MEAN PLATELET VOLUME 8.7 FL (7.4-10.4); MONOCYTES # (AUTO) 1.4 X 10^3 (0.0-1.0); MONOCYTES % (AUTO) 17 % (0-12); NEUTROPHILS # (AUTO) 5.7 X 10^3 (1.8-7.8); NEUTROPHILS % (AUTO) 72 % (42-75); PLATELET COUNT 235 10^3/uL (130-400); RED CELL DISTRIBUTION WIDTH 18.2 % (10.0-14.5); WHITE BLOOD COUNT 7.9 10^3/uL (4.3-11.0)
[2018-11-25 17:06] LABS: ALANINE AMINOTRANSFERASE 14 U/L (0-55); ALBUMIN 4.2 GM/DL (3.2-4.5); ALKALINE PHOSPHATASE 174 U/L (40-136); BILIRUBIN,TOTAL 0.2 MG/DL (0.1-1.0); BUN/CREATININE RATIO 14; CALCIUM 8.9 MG/DL (8.5-10.1); CARBON DIOXIDE 30 MMOL/L (21-32); CHLORIDE 95 MMOL/L (98-107); CREATININE SERUM 0.71 MG/DL (0.60-1.30); GFR ESTIMATED > 60; GLUCOSE 120 MG/DL (70-105); POTASSIUM 4.6 MMOL/L (3.6-5.0); SODIUM 131 MMOL/L (135-145); TOTAL PROTEIN 7.2 GM/DL (6.4-8.2)
--- NOTE | 2018-11-25 17:14 | Diagnostic Imaging Report ---
INDICATION: Dyspnea. History of lung cancer. COMPARISON: 10/05/2018. FINDINGS: Stable right IJ Port-A-Cath. Chronic linear opacities in the lung bases are similar. No new airspace consolidations. No pleural effusion or pneumothorax. Heart remains normal in size. Tortuous aorta is unchanged. IMPRESSION: 1. No acute cardiopulmonary process. 2. Stable chronic pulmonary changes within the lung bases, greater on the right. Dictated by: Dictated on workstation # [id number]
--- NOTE | 2018-11-25 17:23 | Diagnostic Imaging Report ---
PROCEDURE: CT head and CT cervical spine without contrast. TECHNIQUE: Multiple contiguous axial images were obtained through the brain and cervical spine without the use of intravenous contrast. Sagittal and coronal reformations through the cervical spine were then performed. Auto Exposure Controls were utilized during the CT exam to meet ALARA standards for radiation dose reduction. INDICATION: Falls, weakness, head and neck pain, and history of lung cancer. COMPARISON: Exam is compared with a prior 09/04/2018. FINDINGS: CT head: Some chronic right hemispheric volume loss likely accounts for prominence of extra-axial fluid along the frontoparietal convexity as well as along the sylvian fissure and compensatory enlargement of the right lateral ventricle. This is an unchanged finding. There is no evidence for intracerebral hemorrhage. No focal cortical edema. No evidence for elevated pressures. No acute extra-axial collection. No calvarial fracture deformity identified. There is no hemosinus. CT cervical spine: An unhealed odontoid fracture with marginal osteolysis and erosive features show no bony bridging and is in stable alignment. This is unchanged from multiple priors. Also unchanged multilevel grade 1 degenerative listhesis anteriorly C3 on C4 and C5 on C6 and retrolisthesis of C6 on C7. Some chronic C6 vertebral stature loss stable. Hypertrophic facet arthrosis throughout the cervical spine chronic. No new fracture identified. There is heavy vascular calcification of the carotids chronic. IMPRESSION: CT head: Stable chronic findings. No acute posttraumatic sequelae. CT cervical spine: Unhealed odontoid fracture with fragmental diastasis, osteolysis, and lucencies unchanged. No bony bridging. No new fracture. Spondylosis, facet arthrosis, and multilevel stable grade 1 degenerative listhesis unchanged. No new pathology. Dictated by: Dictated on workstation # [id number]
--- NOTE | 2018-11-25 17:41 | NUR ---
Rigid c collar removed by Miriam Lechuga NP
[2018-11-25 18:11] VITALS: BP 138/78
== END 2018-11-25 18:11 | disposition home or self-care (01) ==
LOC: EDUNIT# 15:52 → ER 15:53
DX: S12.100A Unspecified displaced fracture of second cervical vertebra, initial encounter for closed fracture (principal); J06.9 Acute upper respiratory infection, unspecified; I10 Essential (primary) hypertension; E78.00 Pure hypercholesterolemia, unspecified; J44.9 Chronic obstructive pulmonary disease, unspecified; G47.30 Sleep apnea, unspecified; G40.909 Epilepsy, unspecified, not intractable, without status epilepticus; G62.9 Polyneuropathy, unspecified; F17.210 Nicotine dependence, cigarettes, uncomplicated; F17.290 Nicotine dependence, other tobacco product, uncomplicated; Z88.6 Allergy status to analgesic agent; Z79.51 Long term (current) use of inhaled steroids; Z87.81 Personal history of (healed) traumatic fracture; Z85.118 Personal history of other malignant neoplasm of bronchus and lung; Z82.49 Family history of ischemic heart disease and other diseases of the circulatory system; W19.XXXA Unspecified fall, initial encounter
CPT/HCPCS: 36415; 70450; 71046; 72125; 80053; 85025

== ENCOUNTER 2018-12-01 02:00 | Emergency (ER) | payer MEDICARE, MEDICAID ==
[~2018-12-01] VITALS: Ht 182.9 cm; Wt 79.0 kg
[~2018-12-01 02:00] MED LIST changes: +RT-ALBUTEROL SULF 2.5 MG/3 ML PRE-MIX VIAL ONE; +RT-ALBUTEROL/IPRATROPIUM 3 ML (DUONEB) VIAL ONE
[2018-12-01] MEDS ORDERED: RT-ALBUTEROL/IPRATROPIUM 3 ML (DUONEB) VIAL INH ONE ×2 (02:15→02:30)
[2018-12-01] MEDS ORDERED: RT-ALBUTEROL SULF 2.5 MG/3 ML PRE-MIX VIAL INH ONE (02:15)
[2018-12-01] MEDS ORDERED: RT-ALBUTEROL SULF 2.5 MG/3 ML PRE-MIX VIAL INH STA (02:20)
[2018-12-01] MEDS ORDERED: methylPREDNISolone 125 MG (Solu-MEDROL) VIAL IVP ONE (02:30)
[2018-12-01 02:32] LABS: ABG BASE EXCESS 4.4 MMOL/L (-2.5-2.5); ABG OXYGEN SATURATION 95 % (94-100); ABG PCO2 50 MMHG (35-45); ABG PH 7.38 (7.37-7.43); ABG PO2 75 MMHG (79-93); ABG TCO2 30.9 MMOL/L (21.0-31.0)
[2018-12-01 02:33] VITALS: BP 169/109
[2018-12-01 02:33] LABS: ALLENS TEST POSITIVE; INSPIRED O2 3; PATIENT TEMP 97.4; VENTILATOR NO
[2018-12-01 02:36] LABS: BASOPHILS % (AUTO) 0 % (0-10); EOSINOPHILS % (AUTO) 0 % (0-10); HEMATOCRIT 35 % (40-54); HEMOGLOBIN 11.4 G/DL (13.3-17.7); LYMPHOCYTES # (AUTO) 0.9 X 10^3 (1.0-4.0); LYMPHOCYTES % (AUTO) 12 % (12-44); MEAN CORPUSCULAR HEMOGLOBIN 28 PG (25-34); MEAN CORPUSCULAR HGB CONC 33 G/DL (32-36); MEAN CORPUSCULAR VOLUME 86 FL (80-99); MEAN PLATELET VOLUME 8.8 FL (7.4-10.4); MONOCYTES # (AUTO) 1.1 X 10^3 (0.0-1.0); MONOCYTES % (AUTO) 15 % (0-12); NEUTROPHILS # (AUTO) 5.3 X 10^3 (1.8-7.8); NEUTROPHILS % (AUTO) 73 % (42-75); PLATELET COUNT 195 10^3/uL (130-400); RED CELL DISTRIBUTION WIDTH 18.4 % (10.0-14.5); WHITE BLOOD COUNT 7.4 10^3/uL (4.3-11.0)
[2018-12-01 02:56] LABS: ALANINE AMINOTRANSFERASE 17 U/L (0-55); ALBUMIN 4.3 GM/DL (3.2-4.5); ALKALINE PHOSPHATASE 189 U/L (40-136); BILIRUBIN,TOTAL 0.2 MG/DL (0.1-1.0); BUN/CREATININE RATIO 13; CALCIUM 8.8 MG/DL (8.5-10.1); CARBON DIOXIDE 27 MMOL/L (21-32); CHLORIDE 97 MMOL/L (98-107); CREATININE SERUM 0.82 MG/DL (0.60-1.30); GFR ESTIMATED > 60; GLUCOSE 117 MG/DL (70-105); POTASSIUM 4.4 MMOL/L (3.6-5.0); SODIUM 134 MMOL/L (135-145); TOTAL PROTEIN 7.2 GM/DL (6.4-8.2)
--- NOTE | 2018-12-01 03:30 | NUR ---
PT REQUESTS TO BE TAKEN OFF THE BIPAP DEVICE EVEN AFTER THE CONSEQUENCES OF THAT ACTION BEING EXPLAINED TO THE PT BY THIS NURSE AND DR. HERNANDEZ, PT AGREES TO 'S SUGGESTION OF TRYING THE VAPOTHERM UNIT. PT REMOVED FROM BIPAP AND PLACED ON 3L VIA NC, RT CONTACTED TO PLACE PT ON VAPOTHERM
[2018-12-01 04:08] LABS: ABG OXYGEN SATURATION 94 % (94-100); ABG PCO2 51 MMHG (35-45); ABG PH 7.36 (7.37-7.43); ABG PO2 79 MMHG (79-93); ABG TCO2 29.8 MMOL/L (21.0-31.0)
[2018-12-01 04:13] LABS: ALLENS TEST POSITIVE; INSPIRED O2 3; PATIENT TEMP 97.3; VENTILATOR NO
--- NOTE | 2018-12-01 04:15 | ED General ---
General Chief Complaint: Respiratory Problems Stated Complaint: SOB Nursing Triage Note: PT PRESENTS TO THE ED C/O EXERTIONAL SOB THAT ONSET 2-3 DAYS AGO WHEN THE PT BEGAN TO DEVELOPE FLU LIKE SYMPTOMS. PT VERBALIZES EXTENSIVE COPD HX AND SMOKING HX Nursing Sepsis Screen: No Definite Risk Source of Information: Patient Exam Limitations: No Limitations History of Present Illness Date Seen by Provider: Dec 01, 2018 Time Seen by Provider: 02:02 Initial Comments This 63-year-old man with severe COPD presents to the emergency room short of breath, wheezing, and with upper respiratory symptoms of cough and congestion for the past 2-3 days. He denies any fever and he is afebrile on arrival. He receives monthly chemotherapy treatments for stable lung cancer. He uses supplemental oxygen chronically at 3 L/m. This patient is well-known to this ER service and often requires admission for COPD exacerbation. Patient's last c hemotherapy treatment was last . Allergies and Home Medications Allergies Coded Allergies: aspirin (Unverified Allergy, Mild, DOES NOT WORK WELL W/ OTHER MEDS, 10/05/18) ibuprofen (Unverified Allergy, Mild, 10/05/18) Home Medications Albuterol Sulfate 2.5 Mg/3 Ml Vial.neb, 2.5 MG NEB QID, (Reported) Albuterol Sulfate 1 Puff Puff, 2 PUFF IH Q6H PRN for SHORTNESS OF BREATH, (Reported) 1 PUFF = 90 MCG Amlodipine Besylate 5 Mg Tablet, 5 MG PO 0800, (Reported) LAST FILLED #90 12-25-17 Atorvastatin Calcium 20 Mg Tablet, 20 MG PO 0300 Prescribed by: FRAN DELACRUZ on 06/26/18 1254 Carbamazepine 200 Mg Tablet, 200 MG PO 0800,2300,0300, (Reported) Carbamazepine 200 Mg Tablet, 400 MG PO 1500, (Reported) TAKES 2 (200 MG) TABLETS Cefdinir 300 Mg Capsule, 300 MG PO BID Prescribed by: FRAN DELACRUZ on 06/26/18 1254 Cefdinir 300 Mg Capsule, 300 MG PO BID Prescribed by: ERIN ETIENNE on 07/24/18 1157 Fluticasone/Salmeterol 12 Gm Hfa.aer.ad, 2 PUFF INH BID, (Reported) Gabapentin 300 Mg Capsule, 300 MG PO 2300, (Reported) Gabapentin 600 Mg Tablet, 600 MG PO 0800,1500, (Reported) Hydrocodone Bit/Acetaminophen 1 Tab Tab, 0.5 EACH PO Q4-6HR PRN for PAIN- MODERATE Prescribed by: NESTOR AVILEZ on 08/12/18 1850 Hydrocodone/Acetaminophen 1 Each Tablet, 1 TAB PO TID PRN for PAIN-MODERATE, (Reported) Lamotrigine 100 Mg Tablet, 100 MG PO 1500,2300, (Reported) Lamotrigine 25 Mg Tablet, 25 MG PO 1500,0300, (Reported) Lisinopril 20 Mg Tablet, 20 MG PO 0300, (Reported) LAST FILLED #90 12-25-17 Meloxicam 7.5 Mg Tablet, 7.5 MG PO DAILY, (Reported) Omeprazole 20 Mg Capsule.dr, 20 MG PO DAILY PRN for HEARTBURN, (Reported) Ondansetron 4 Mg Tab.rapdis, 4 MG PO TID PRN for NAUSEA/VOMITING-1ST LINE, (Reported) Phenytoin Sodium Extended 100 Mg Capsule, 200 MG PO 0800,1500, (Reported) LAST FILLED A 90 DAY SUPPLY 12-22-17 TAKES 2 (100 MG) CAPSULES Phenytoin Sodium Extended 100 Mg Capsule, 100 MG PO 2300, (Reported) LAST FILLED A 90 DAY SUPPLY 12-22-17 Tiotropium Bunch 1 Inh Aerp, 1 CAP IH DAILY, (Reported) Patient Home Medication List Home Medication List Reviewed: Yes Review of Systems Review of Systems Constitutional: no symptoms reported EENTM: no symptoms reported Respiratory: see HPI Cardiovascular: no symptoms reported Gastrointestinal: no symptoms reported Genitourinary: no symptoms reported Musculoskeletal: no symptoms reported Skin: no symptoms reported Psychiatric/Neurological: No Symptoms Reported Hematologic/Lymphatic: No Symptoms Reported Past Kmggqws-Kfsglo-Fvwerq Hx Patient Social History Alcohol Use: Denies Use Recreational Drug Use: Yes (not current, 15 years ago-ETOH and PO drugs) Drug of Choice: HX OF RX DRUG ABUSE, CLAIMS NONE 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 Smoking Status: Former Smoker Type Used: Cigars, Cigarettes Former Smoker, Quit: May 01, 2017 2nd Hand Smoke Exposure: No Recent Foreign Travel: No Contact w/Someone Who Travel: No Recent Infectious Disease Expo: No Recent Hopitalizations: No Physical Abuse: No Sexual Abuse: No Mistreated: No Fear: No Immunizations Up To Date Tetanus Booster (TDap): Unknown PED Vaccines UTD: Yes Date of Influenza Vaccine: Apr 21, 2018 Seasonal Allergies Seasonal Allergies: Yes Past Medical History Surgeries: Yes (PORT RIGHT CHEST; CT GUIDED BX OF FEMUR; BILATERAL CATARACT SURGERY) Eye Surgery, Gallbladder Respiratory: Yes Asthma, Pneumonia, Chronic Bronchitis, Sleep Apnea, COPD (chronic hypoxia on oxygen at 3 L/m by nasal cannula) Currently Using CPAP: No Currently Using BIPAP: No Cardiac: Yes Heart Murmur, High Cholesterol, Hypertension, Valvular Heart Disease 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) Neuropathy, Seizure Disorder, Vertigo Reproductive Disorders: No Sexually Transmitted Disease: No HIV/AIDS: No Genitourinary: No Gastrointestinal: Yes (CHRONIC NAUSEA/VOMITING) Musculoskeletal: Yes (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) Arthritis, Fractures Endocrine: No HEENT: No Loss of Vision: Denies Hearing Impairment: Denies Cancer: Yes Lung Did You Recieve Any Treatments: Yes What Type of Treatment Did You: Chemotherapy Psychosocial: No Integumentary: No Blood Disorders: No Adverse Reaction/Blood Tranf: No Family Medical History Hypercholesterolemia 19 FATHER Hypertension 19 FATHER Physical Exam Vital Signs Vital Signs - First Documented 12/01/18 12/01/18 02:01 02:33 Temp 97.4 Pulse 67 Resp 22 B/P (MAP) 212/109 (143) Pulse Ox 94 O2 Delivery Nasal Cannula O2 Flow Rate 3.00 FiO2 40 Capillary Refill : Less Than 3 Seconds Height, Weight, BMI Height: 6'0" Weight: 174lbs. 3.0oz. 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 Norm as Tested Skin: Normal Color, Warm/Dry Procedures/Interventions Date of ETT Placement: Mar 09, 2017 Time of ETT Placement: 1811 Tube Size: 4.00 Suture Size: 5-0 Progress/Results/Core Measures Suspected Sepsis Recent Fever Within 48 Hours: No Infection Criteria Present: None New/Unexplained Altered Menta: No Sepsis Screen: No Definite Risk SIRS Temperature:97.4 Pulse: 61 Respiratory Rate: 14 Laboratory Tests 12/01/18 02:25: White Blood Count 7.4 Blood Pressure 169 /109 Mean: 143 Laboratory Tests 12/01/18 02:25: Creatinine 0.82, Platelet Count 195, Total Bilirubin 0.2 Results/Orders Lab Results Laboratory Tests Test 12/01/18 02:25 12/01/18 02:26 12/01/18 04:03 Range/Units White Blood Count 7.4 4.3-11.0 10^3/uL Red Blood Count 4.03 L 4.35-5.85 10^6/uL Hemoglobin 11.4 L 13.3-17.7 G/DL Hematocrit 35 L 40-54 % Mean Corpuscular Volume 86 80-99 FL Mean Corpuscular Hemoglobin 28 25-34 PG Mean Corpuscular Hemoglobin Concent 33 32-36 G/DL Red Cell Distribution Width 18.4 H 10.0-14.5 % Platelet Count 195 130-400 10^3/uL Mean Platelet Volume 8.8 7.4-10.4 FL Neutrophils (%) (Auto) 73 42-75 % Lymphocytes (%) (Auto) 12 12-44 % Monocytes (%) (Auto) 15 H 0-12 % Eosinophils (%) (Auto) 0 0-10 % Basophils (%) (Auto) 0 0-10 % Neutrophils # (Auto) 5.3 1.8-7.8 X 10^3 Lymphocytes # (Auto) 0.9 L 1.0-4.0 X 10^3 Monocytes # (Auto) 1.1 H 0.0-1.0 X 10^3 Eosinophils # (Auto) 0.0 0.0-0.3 10^3/uL Basophils # (Auto) 0.0 0.0-0.1 10^3/uL Sodium Level 134 L 135-145 MMOL/L Potassium Level 4.4 3.6-5.0 MMOL/L Chloride Level 97 L 98-107 MMOL/L Carbon Dioxide Level 27 21-32 MMOL/L Anion Gap 10 5-14 MMOL/L Blood Urea Nitrogen 11 7-18 MG/DL Creatinine 0.82 0.60-1.30 MG/DL Estimat Glomerular Filtration Rate > 60 BUN/Creatinine Ratio 13 Glucose Level 117 H 70-105 MG/DL Calcium Level 8.8 8.5-10.1 MG/DL Corrected Calcium 8.6 8.5-10.1 MG/DL Total Bilirubin 0.2 0.1-1.0 MG/DL Aspartate Amino Transf (AST/SGOT) 18 5-34 U/L Alanine Aminotransferase (ALT/SGPT) 17 0-55 U/L Alkaline Phosphatase 189 H 40-136 U/L C-Reactive Protein High Sensitivity 3.15 H 0.00-0.50 MG/DL B-Type Natriuretic Peptide 161.4 H <100.0 PG/ML Total Protein 7.2 6.4-8.2 GM/DL Albumin 4.3 3.2-4.5 GM/DL Blood Gas Puncture Site RIGHT RADIAL RIGHT RADIAL Blood Gas Patient Temperature 97.4 97.3 Arterial Blood pH 7.38 7.36 L 7.37-7.43 Arterial Blood Partial Pressure CO2 50 H 51 H 35-45 MMHG Arterial Blood Partial Pressure O2 75 L 79 79-93 MMHG Arterial Blood HCO3 29 H 28 H 23-27 MMOL/L Arterial Blood Total CO2 30.9 29.8 21.0-31.0 MMOL/L Arterial Blood Oxygen Saturation 95 94 94-100 % Arterial Blood Base Excess 4.4 H 3.0 H -2.5-2.5 MMOL/L Johan Test POSITIVE POSITIVE Blood Gas Ventilator Setting NO NO Blood Gas Inspired Oxygen 3 3 Micro Results Microbiology 12/01/18 Influenza Types A,B Antigen (VY) - Final, Complete My Orders Orders - STEFAN HERNANDEZ MD Albuterol Pre-Mix Nebs (Rt) (Proventil (12/01/18 02:00) Albuterol/Ipra Inhalation Soln (Duoneb I (12/01/18 02:00) Albuterol/Ipra Inhalation Soln (Duoneb I (12/01/18 02:15) Albuterol Pre-Mix Nebs (Rt) (Proventil (12/01/18 02:15) BNP (12/01/18 02:14) Cbc With Automated Diff (12/01/18 02:14) Comprehensive Metabolic Panel (12/01/18 02:14) Hs C Reactive Protein (12/01/18 02:14) Ed Iv/Invasive Line Start (12/01/18 02:14) Chest 1 View, Ap/Pa Only (12/01/18 02:14) Albuterol Pre-Mix Nebs (Rt) (Proventil (12/01/18 02:20) Albuterol/Ipra Inhalation Soln (Duoneb I (12/01/18 02:30) Svn Small Volume Nebulizer (12/01/18 02:20) Svn Small Volume Nebulizer (12/01/18 02:20) Methylprednisolone Sod Succ (Solu-Medrol (12/01/18 02:30) Influenza A And B Antigens (12/01/18 02:22) Arterial Blood Gas (12/01/18 02:22) Bipap (Bilevel) Set Up (12/01/18 02:42) Arterial Blood Gas (12/01/18 03:59) Arterial Blood Draw (12/01/18 02:26) Arterial Blood Draw (12/01/18 04:00) Medications Given in ED Current Medications Medications Dose Ordered Sig/Porfirio Route Start Time Stop Time Status Last Admin Dose Admin Albuterol Sulfate 5 mg ONCE ONCE INH 12/01/18 02:15 12/01/18 02:16 DC 12/01/18 02:21 5 MG Albuterol/ Ipratropium 3 ml ONCE ONCE INH 12/01/18 02:15 12/01/18 02:16 DC 12/01/18 02:16 3 ML Albuterol/ Ipratropium 3 ml ONCE ONCE INH 12/01/18 02:30 12/01/18 02:31 DC 12/01/18 02:33 3 ML Methylprednisolone Sodium Succinate 125 mg ONCE ONCE IVP 12/01/18 02:30 12/01/18 02:31 DC 12/01/18 02:38 125 MG Vital Signs/I&O 12/01/18 12/01/18 12/01/18 12/01/18 02:01 02:12 02:17 02:22 Temp 97.4 Pulse 67 Resp 22 B/P (MAP) 212/109 (143) Pulse Ox 94 86 94 94 O2 Delivery Nasal Cannula Room Air Nasal Cannula Nasal Cannula O2 Flow Rate 3.00 3.00 3.00 12/01/18 12/01/18 02:33 02:33 Pulse 61 Resp 14 Pulse Ox 98 98 O2 Delivery NIV Bilevel O2 Flow Rate 40.00 FiO2 40 Capillary Refill : Less Than 3 Seconds Blood Pressure Mean: 143 Progress Note : Progress Note Patient was immediately treated with DuoNeb therapy. He had persistent severe wheezing. An hour-long nebulizer treatment was administered. Solu-Medrol 125 mg was given. He was placed on BiPAP therapy. He was on BiPAP for about 90 minutes when he refused to continue. ABG was relatively unchanged before and after BiPAP therapy. Chest x-ray showed no evidence of pneumonia when compared with prior. CRP was minimally elevated and influenza screen was negative. [place] [facility] is on admission diversion. Patient requested transfer to [place]. Dr. Scott, hospitalist graciously accepted transfer and his assistance is greatly appreciated. Patient was stable on 3 L nasal cannula prior to transfer. Wheezing had improved significantly. Respiratory distress had resolved. Expiratory phase was still quite prolonged and very tight. Air movement remained significantly diminished. Diagnostic Imaging Diagonstic Imaging: Xray Plain Films/CT/US/NM/MRI: chest Comments Chest x-ray viewed by me and compared to prior. No acute change appreciated. Report not yet available. Departure Impression Primary Impression: COPD exacerbation Additional Impression: Respiratory distress Disposition: 02 XFER SHT-TRM HOSP Condition: Improved Transfer Time Spoke to Accepting Phy: 04:10 Transfer Progress Notes Transfer accepted by Dr. Scott. Transfer Time: 05:05 Transfer Facility: [facility] Method of Transfer: EMS Departure-Patient Inst. Referrals: AMANDEEP GENAO DO (PCP/Family) Primary Care Physician STEFAN HERNANDEZ MD Dec 01, 2018 04:15
[2018-12-01 05:05] VITALS: BP 175/92
--- NOTE | 2018-12-01 06:30 | Diagnostic Imaging Report ---
PATIENT HISTORY: Shortness of air, cough, congestion. TECHNIQUE: Single frontal view of the chest COMPARISON: 11/25/2018 FINDINGS: The right-sided Port-A-Cath appears to be in stable position. Lung volumes are mildly large. There are mild airspace opacities at the right lung base, the right midlung, and the left midlung. There are severe degenerative changes in the glenohumeral joints bilaterally. No pleural effusion or pneumothorax is seen. IMPRESSION: 1. Airspace opacities in the lungs bilaterally, may represent infection in the appropriate clinical setting. Dictated by: Dictated on workstation # [id number]
== END 2018-12-01 05:05 ==
LOC: EDUNIT# 02:00 → ER 02:02
DX: J44.1 Chronic obstructive pulmonary disease with (acute) exacerbation (principal); R06.03 Acute respiratory distress; C34.90 Malignant neoplasm of unspecified part of unspecified bronchus or lung; G47.30 Sleep apnea, unspecified; J45.909 Unspecified asthma, uncomplicated; I10 Essential (primary) hypertension; E78.00 Pure hypercholesterolemia, unspecified; G40.909 Epilepsy, unspecified, not intractable, without status epilepticus; G62.9 Polyneuropathy, unspecified; Z86.12 Personal history of poliomyelitis; Z99.81 Dependence on supplemental oxygen; Z88.6 Allergy status to analgesic agent; Z87.891 Personal history of nicotine dependence; Z82.49 Family history of ischemic heart disease and other diseases of the circulatory system
CPT/HCPCS: 36415; 36600; 71045; 80053; 82805; 83880; 85025; 86141; 87804; 94640; 94644; 94660

== ENCOUNTER → 2019-01-06 | Outpatient (CLI) | payer MEDICARE, MEDICAID ==
[~2019-01-06] MED LIST changes: -RT-ALBUTEROL SULF 2.5 MG/3 ML PRE-MIX VIAL ONE; -RT-ALBUTEROL/IPRATROPIUM 3 ML (DUONEB) VIAL ONE
--- NOTE | 2019-01-06 14:08 | Diagnostic Imaging Report ---
INDICATION: Fall and left shoulder pain. TIME OF EXAM: 01:46 p.m. EXAMINATION: Three views of the left shoulder were obtained. FINDINGS: Glenohumeral alignment as well as acromioclavicular alignment are normal. There is significant degenerative change involving the left shoulder. Glenohumeral joint does show joint space narrowing as well as sclerosis and subchondral cyst formation involving the glenoid and humeral heads. No fracture or dislocation is identified. IMPRESSION: Glenohumeral joint degenerative changes. No acute bony abnormality is detected. Dictated by: Dictated on workstation # [id number]
== END ==
LOC: RAD 13:33
PROVIDERS: ATTEND Family Medicine
DX: S49.92XA Unspecified injury of left shoulder and upper arm, initial encounter (principal); M19.012 Primary osteoarthritis, left shoulder; W19.XXXA Unspecified fall, initial encounter
CPT/HCPCS: 73030

== ENCOUNTER → 2019-01-11 | Outpatient (CLI) | payer MEDICARE, MEDICAID ==
[~2019-01-11] MED LIST changes: +HOLD METFORMIN - RECEIVED CONTRAST 20 ML VIAL IV SCH; +IOHEXOL 350 MG/ML 100 ML (OMNIPAQUE 350) VIAL IV ONE; +NS 100 ML (IVPB) BAG IV ONE
[2019-01-11] MEDS: CATHETER FLUSH 10 ML SYR IV PRN ×2 (12:19→12:41)
--- NOTE | 2019-01-11 13:58 | Diagnostic Imaging Report ---
PROCEDURE: CT chest and abdomen with contrast. TECHNIQUE: Multiple contiguous axial images were obtained through the chest and abdomen after the administration of intravenous contrast. Auto Exposure Controls were utilized during the CT exam to meet ALARA standards for radiation dose reduction. INDICATION: History of non-small cell lung cancer. COMPARISON: 09/14/2018 FINDINGS: CT chest: Evaluation of the lung lo again demonstrate triangular shaped micronodular density within the posterior medial margins of the left upper lobe measuring approximately 7 mm (image 17, series 2). This is stable compared to prior exam. There is however new 5 mm micronodular density within the more anterior and inferior portion of the left upper lobe (image 22, series 2). There has been interval increase in scattered patchy appearing alveolar densities within the posterior margins of the right upper lobe (image 23, series 2). Largest area of confluence is juxtapleural and measures 1.3 x 1.5 cm (image 23, series 2). These findings are admixed with persistent micronodular densities scattered throughout the right lung. New micronodular densities are also noted within the inferolateral margin of the right lower lobe and measure approximately 6 mm (image 42, series 2). There is some superimposed bibasilar atelectasis as well. There is no large effusion or pneumothorax on either side. Lungs otherwise show background [id number] air trapping consistent with underlying emphysematous disease. Cardiomediastinal structures show normal heart size. There is no large pericardial effusion. Bulky calcifications of the aortic valve and scattered calcified atherosclerosis of the thoracic aorta are noted. There is also [id number] scattered calcified coronary atherosclerosis. No pathologically enlarged or morphologically abnormal adenopathy is seen within the mediastinum, ryan, nor axilla. Osseous structures show chronic appearing lucency within the right humeral head. No acute osseous abnormalities are seen. There is no adverse interval change. CT ABDOMEN: Benign small cyst is noted involving the superior pole of left kidney. Otherwise, kidneys, adrenal glands, spleen, pancreas, and liver have a normal CT appearance. Visualized small bowel loops are nondistended. Appendix is not included on this exam. There is no loculated fluid collections, free fluid, no free air within the abdomen. No abnormal mesenteric or retroperitoneal adenopathy is seen. Note is made of moderate diffuse calcified and noncalcified aortic and arterial atherosclerosis. IMPRESSION: 1. New suspicious 5 mm micronodule within the left upper lobe. Given its small size, this would likely be inconspicuous on PET and not amenable to CT-guided biopsy. Continued short interval CT follow-up is advised. 2. Interval increased/redevelopment of patchy and confluent densities throughout the posterior margins of the right upper and right lower lobes. Overall, appearance favors underlying infectious or inflammatory process. Neoplastic process however cannot be entirely excluded. Again, continued short interval follow-up is recommended. 3. Redemonstration of multiple micronodular densities scattered throughout the right lung. Again, 2 new small micronodular densities within the inferior right lateral margin of the right lower lobe. These too may be on an infectious or inflammatory basis, but metastatic disease cannot be excluded. Continued follow-up as above. 4. Background emphysematous disease. 5. Diffuse calcified aorta, coronary, and arterial atherosclerosis as described above. 6. No evidence of metastatic or malignant disease within the abdomen. Dictated by: Dictated on workstation # [id number]
--- NOTE | 2019-01-11 15:57 | Diagnostic Imaging Report ---
INDICATION: Non-small cell lung carcinoma. TECHNIQUE: Patient was administered 27.0 mCi of technetium-99m MDP intravenously, and whole-body imaging was performed after a 3-hour delay. COMPARISON: Correlation is made with prior whole body bone scan from 07/14/2018. FINDINGS: Normal uptake of activity by the axial and appendicular skeleton is noted. There is uptake within the kidneys with excretion into the urinary bladder. There are some degenerative changes at the knees bilaterally. The longitudinally oriented activity along the lower right anterior rib is not as well seen on today's study. There is a focus of increased uptake involving the right aspect of a lower lumbar vertebral body, approximately L3. This is more prominent than prior study. There are some degenerative changes of bilateral shoulders. No other suspicious foci are seen. IMPRESSION: 1. Previously noted right lower anterior rib uptake has resolved. 2. Uptake involving the right aspect of approximately L3 vertebral body, indeterminate. Patient does have degenerative disc disease at this level which could account for the activity. Continued follow-up is recommended. Dictated by: Dictated on workstation # [id number]
== END ==
LOC: CARD 12:07
PROVIDERS: ATTEND Nurse Practitioner Adult Health
DX: Z01.89 Encounter for other specified special examinations (principal); I25.10 Atherosclerotic heart disease of native coronary artery without angina pectoris; N28.1 Cyst of kidney, acquired; J43.9 Emphysema, unspecified; Z85.118 Personal history of other malignant neoplasm of bronchus and lung; I70.0 Atherosclerosis of aorta; Z79.51 Long term (current) use of inhaled steroids
CPT/HCPCS: 71260; 74160; 78306

== ENCOUNTER 2019-01-18 13:48 | Emergency (ER) | payer MEDICARE, MEDICAID ==
[~2019-01-18] VITALS: Ht 187.6 cm; Wt 81.8 kg
[~2019-01-18 13:48] MED LIST changes: -HOLD METFORMIN - RECEIVED CONTRAST 20 ML VIAL IV SCH; -IOHEXOL 350 MG/ML 100 ML (OMNIPAQUE 350) VIAL IV ONE; -NS 100 ML (IVPB) BAG IV ONE
--- NOTE | 2019-01-18 14:08 | ED Upper Extremity ---
General Chief Complaint: General Problems/Pain Stated Complaint: SOA Nursing Triage Note: PT TO RM 8 WITH COMPLAINT OF LEFT SHOULDER PAIN AND SOA. PT STATES HE HAS BEEN FALLING TODAY AND YESTERDAY. STATES HE BECAME SOB 4 DAYS AGO. PT WEARS 3L HOME O2 Nursing Sepsis Screen: No Definite Risk Source: patient Exam Limitations: physical impairment History of Present Illness Date Seen by Provider: Jan 18, 2019 Time Seen by Provider: 13:55 Initial Comments Patient reports left shoulder pain. Patient reports having multiple falls in the last week. Patient also reports increased shortness of air over the last 4 days. Noticeable tenderness over the left shoulder with limited range of motion. Patient reports hitting head at least twice during these falls, with no LOC. Patient reports having this history of epilepsy but does not believe this to be reason for the falls. Patient is currently on oxygen. Significant other at bedside, present when patient fell at home. He has a walker at home, however he has not been using it. He was started on Bactrim following his last chemotherapy appointment last week. Location Injury Occurred: home Onset: last week, other Pain/Injury Location: left shoulder Method of Injury: fell Allergies and Home Medications Allergies Coded Allergies: aspirin (Unverified Allergy, Mild, DOES NOT WORK WELL W/ OTHER MEDS, 10/05/18) ibuprofen (Unverified Allergy, Mild, 10/05/18) Home Medications Albuterol Sulfate 2.5 Mg/3 Ml Vial.neb, 2.5 MG NEB QID, (Reported) Albuterol Sulfate 1 Puff Puff, 2 PUFF IH Q6H PRN for SHORTNESS OF BREATH, (Reported) 1 PUFF = 90 MCG Amlodipine Besylate 5 Mg Tablet, 5 MG PO 0800, (Reported) LAST FILLED #90 12-25-17 Atorvastatin Calcium 20 Mg Tablet, 20 MG PO 0300 Prescribed by: FRAN DELACRUZ on 06/26/18 1254 Carbamazepine 200 Mg Tablet, 200 MG PO 0800,2300,0300, (Reported) Carbamazepine 200 Mg Tablet, 400 MG PO 1500, (Reported) TAKES 2 (200 MG) TABLETS Cefdinir 300 Mg Capsule, 300 MG PO BID Prescribed by: FRAN DELACRUZ on 06/26/18 1254 Cefdinir 300 Mg Capsule, 300 MG PO BID Prescribed by: ERIN ETIENNE on 07/24/18 1157 Fluticasone/Salmeterol 12 Gm Hfa.aer.ad, 2 PUFF INH BID, (Reported) Gabapentin 300 Mg Capsule, 300 MG PO 2300, (Reported) Gabapentin 600 Mg Tablet, 600 MG PO 0800,1500, (Reported) Hydrocodone Bit/Acetaminophen 1 Tab Tab, 0.5 EACH PO Q4-6HR PRN for PAIN- MODERATE Prescribed by: NESTOR AVILEZ on 08/12/18 1850 Hydrocodone/Acetaminophen 1 Each Tablet, 1 TAB PO TID PRN for PAIN-MODERATE, (Reported) Lamotrigine 100 Mg Tablet, 100 MG PO 1500,2300, (Reported) Lamotrigine 25 Mg Tablet, 25 MG PO 1500,0300, (Reported) Lisinopril 20 Mg Tablet, 20 MG PO 0300, (Reported) LAST FILLED #90 12-25-17 Meloxicam 7.5 Mg Tablet, 7.5 MG PO DAILY, (Reported) Omeprazole 20 Mg Capsule.dr, 20 MG PO DAILY PRN for HEARTBURN, (Reported) Ondansetron 4 Mg Tab.rapdis, 4 MG PO TID PRN for NAUSEA/VOMITING-1ST LINE, (Reported) Phenytoin Sodium Extended 100 Mg Capsule, 200 MG PO 0800,1500, (Reported) LAST FILLED A 90 DAY SUPPLY 12-22-17 TAKES 2 (100 MG) CAPSULES Phenytoin Sodium Extended 100 Mg Capsule, 100 MG PO 2300, (Reported) LAST FILLED A 90 DAY SUPPLY 12-22-17 Tiotropium [place] 1 Inh Aerp, 1 CAP IH DAILY, (Reported) Patient Home Medication List Home Medication List Reviewed: Yes Review of Systems Constitutional: no symptoms reported, see HPI Musculoskeletal: see HPI, joint pain (Left shoulder/humerus) Skin: see HPI, lesions (left posterior shoulder) All Other Systems Reviewed Negative Unless Noted: Yes Past Vbykhrc-Atigtk-Pqygob Hx Past Med/Social Hx: Reviewed Nursing Past Med/Soc Hx Patient Social History Alcohol Use: Denies Use Recreational Drug Use: Yes (not current, 15 years ago-ETOH and PO drugs) Drug of Choice: HX OF RX DRUG ABUSE, CLAIMS NONE 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 Smoking Status: Former Smoker Type Used: Cigars, Cigarettes Former Smoker, Quit: May 01, 2017 2nd Hand Smoke Exposure: No Recent Foreign Travel: No Contact w/Someone Who Travel: No Recent Infectious Disease Expo: No Recent Hopitalizations: No Physical Abuse: No Sexual Abuse: No Mistreated: No Fear: No Immunizations Up To Date Tetanus Booster (TDap): Less than 5yrs PED Vaccines UTD: Yes Date of Influenza Vaccine: Apr 21, 2018 Seasonal Allergies Seasonal Allergies: Yes Past Medical History Surgeries: Yes (PORT RIGHT CHEST; CT GUIDED BX OF FEMUR; BILATERAL CATARACT SURGERY) Eye Surgery, Gallbladder Respiratory: Yes Asthma, Pneumonia, Chronic Bronchitis, Sleep Apnea, COPD Currently Using CPAP: No Currently Using BIPAP: No Cardiac: Yes Heart Murmur, High Cholesterol, Hypertension, Valvular Heart Disease 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) Neuropathy, Seizure Disorder, Vertigo Reproductive Disorders: No Sexually Transmitted Disease: No HIV/AIDS: No Genitourinary: No Gastrointestinal: Yes (CHRONIC NAUSEA/VOMITING) Musculoskeletal: Yes (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) Arthritis, Fractures Endocrine: No HEENT: No Loss of Vision: Denies Hearing Impairment: Denies Cancer: Yes Lung Did You Recieve Any Treatments: Yes What Type of Treatment Did You: Chemotherapy Psychosocial: No Integumentary: No Blood Disorders: No Adverse Reaction/Blood Tranf: No Family Medical History Hypercholesterolemia 19 FATHER Hypertension 19 FATHER Physical Exam Vital Signs Vital Signs - First Documented 01/18/19 13:49 Temp 36.2 Pulse 62 Resp 16 B/P (MAP) 184/100 (128) Pulse Ox 98 O2 Delivery Nasal Cannula O2 Flow Rate 3.00 Capillary Refill : Less Than 3 Seconds Height, Weight, BMI Height: 6'0" Weight: 174lbs. 3.0oz. 79.604284ya; 23.00 BMI Method:Stated General Appearance: WD/WN HEENT: normal ENT inspection Neck: non-tender, normal inspection Cardiovascular: normal peripheral pulses, regular rate, rhythm Respiratory: chest non-tender, decreased breath sounds, wheezing, expiration Gastrointestinal: normal bowel sounds, non tender, soft Back: no vertebral tenderness, other (abrasion to R flank) Shoulder: limited ROM (motion secondary to pain), pain, soft tissue tenderness Elbow/Forearm: normal inspection, Left Wrist: Yes normal inspection Hand: normal inspection, Left Neurologic/Tendon: normal sensation Neurologic/Psychiatric: no motor/sensory deficits, alert, normal mood/affect Skin: normal color, warm/dry, other Lymphatic: no adenopathy Left shoulder active and passive elevation to 90, external rotation 10. Biceps and triceps power V/V, External rotators 4-/5. Neurovascular status intact right upper extremity symmetric with the left. Healing wound to left posterior shoulder, patient reports from previous fall. No erythema or warmth Procedures/Interventions Date of ETT Placement: Mar 09, 2017 Time of ETT Placement: 181 Suture Size: 5-0 Progress/Results/Core Measures Results/Orders My Orders Orders - FAVIAN COWART Chest Pa/Lat (2 View) (01/18/19 14:01) Humerus, Left, 2 Views (01/18/19 14:01) Vital Signs/I&O 01/18/19 01/18/19 13:49 15:24 Temp 36.2 Pulse 62 62 Resp 16 17 B/P (MAP) 184/100 (128) 157/89 Pulse Ox 98 96 O2 Delivery Nasal Cannula Nasal Cannula O2 Flow Rate 3.00 3.00 Blood Pressure Mean: 128 Progress Progress Note : Time: 13:55 Progress Note Patient seen and evaluated. We will plan for two-view chest x-ray and a left shoulder x-ray. 1425 no acute findings on x-ray. 1500 patient denies any further complaints. Encouraged to use a quad cane at all times when ambulating to prevent falls. Discharge instructions and return precautions reviewed with him. Diagnostic Imaging Diagonstic Imaging: Xray Plain Films/CT/US/NM/MRI: chest Comments NAME: CR QUIJANO [facility] REC#: [id number] PT STATUS: REG ER : 1955 PHYSICIAN: FAVIAN COWART ADMIT DATE: 01/18/19/ER Draft Date of Exam:01/18/19 CHEST PA/LAT (2 VIEW) PATIENT HISTORY: Cough and congestion. COPD and lung cancer. TECHNIQUE: 2 views of the chest. COMPARISON: 12/01/2018 FINDINGS: There are persistent linear opacities in the right lung base which may represent atelectasis or scarring. Overall aeration appears improved compared to 12/01/2018. No pleural effusion or pneumothorax is seen. The cardiac silhouette is normal in size. The right-sided Port-A-Cath tip projects over the low SVC. There is a nodular density in the right upper lobe seen on the frontal view, measuring approximately 1.5 cm. This likely corresponds with the pleural-based density seen on the prior CT. No new masses are seen. There are marked degenerative changes in the right shoulder. IMPRESSION: 1. Persistent linear opacities in the right lung base, likely atelectasis or scarring. Overall aeration appears improved. 2. Nodular density in the right upper lobe, likely corresponds with the pleural-based density on the prior CT. No new consolidation is seen. Dictated on workstation # [id number] Dict: 01/18/19 1425 Trans: 01/18/19 1452 CVB [id number] Interpreted by: LYNETTE MCFADDEN MD Electronically signed by: Diagonstic Imaging: Xray Comments NAME: CR QUIJANO [facility] REC#: [id number] PT STATUS: REG ER : 1955 PHYSICIAN: FAVIAN COWART ADMIT DATE: 01/18/19/ER Draft Date of Exam:01/18/19 HUMERUS, LEFT, 2 VIEWS INDICATION: Left arm injury from a fall. FINDINGS: Three views of the left humerus show no fracture, dislocation or other acute abnormalities. IMPRESSION: Negative left shoulder. Dictated on workstation # [id number] Dict: 01/18/19 1426 Trans: 01/18/19 1428 TS [id number] Interpreted by: VANESSA SERNA MD Electronically signed by: Reviewed: Reviewed by Me (significant glenohumeral joint space narrowing and arthritic changes present) Departure Impression Primary Impression: Arthritis of left shoulder region Additional Impressions: Fall Qualified Codes: W19.XXXA - Unspecified fall, initial encounter Lung cancer Qualified Codes: C34.90 - Malignant neoplasm of unspecified part of unspecified bronchus or lung Rotator cuff tear, left Qualified Codes: M75.102 - Unspecified rotator cuff tear or rupture of left shoulder, not specified as traumatic Disposition: 01 HOME, SELF-CARE Condition: Improved Departure-Patient Inst. Decision time for Depature: 15:00 Referrals: AMANDEEP GENAO DO (PCP/Family) Primary Care Physician Patient Instructions: Preventing Falls in the Older Adult, Rotator Cuff Injury, Osteoarthritis (DC) Add. Discharge Instructions: Keep your scheduled follow-ups with oncology in for chemotherapy appointments. See Dr. Dr. Genao in 2-3 days if symptoms are not improving or worsen. Continue your home pain medication Ice or heat to left shoulder 20 minutes every 2 hours while awake. Use cane for ambulation to prevent falls. Return to emergency department for new, urgent health care needs. All discharge instructions reviewed with patient and/or family. Voiced understanding. Scripts Cane (Cane) 1 Each Each EACH DAILY for Weakness, #1 0 Refills Quad Cane Prov: FAVIAN COWART 01/18/19 Copy Copies To 1: AMANDEEP GENAO AMY ARNP Jan 18, 2019 14:08
--- NOTE | 2019-01-18 14:29 | Diagnostic Imaging Report ---
INDICATION: Left arm injury from a fall. FINDINGS: Three views of the left humerus show no fracture, dislocation or other acute abnormalities. IMPRESSION: Negative left shoulder. Dictated by: Dictated on workstation # [id number]
--- NOTE | 2019-01-18 14:53 | Diagnostic Imaging Report ---
PATIENT HISTORY: Cough and congestion. COPD and lung cancer. TECHNIQUE: 2 views of the chest. COMPARISON: 12/01/2018 FINDINGS: There are persistent linear opacities in the right lung base which may represent atelectasis or scarring. Overall aeration appears improved compared to 12/01/2018. No pleural effusion or pneumothorax is seen. The cardiac silhouette is normal in size. The right-sided Port-A-Cath tip projects over the low SVC. There is a nodular density in the right upper lobe seen on the frontal view, measuring approximately 1.5 cm. This likely corresponds with the pleural-based density seen on the prior CT. No new masses are seen. There are marked degenerative changes in the right shoulder. IMPRESSION: 1. Persistent linear opacities in the right lung base, likely atelectasis or scarring. Overall aeration appears improved. 2. Nodular density in the right upper lobe, likely corresponds with the pleural-based density on the prior CT. No new consolidation is seen. Dictated by: Dictated on workstation # [id number]
[2019-01-18] MEDS ORDERED: CANE1EAC26 MC (15:10)
[2019-01-18 15:24] VITALS: BP 157/89
== END 2019-01-18 15:24 | disposition home or self-care (01) ==
LOC: EDUNIT# 13:48 → ER 13:49
DX: M19.012 Primary osteoarthritis, left shoulder (principal); M75.102 Unspecified rotator cuff tear or rupture of left shoulder, not specified as traumatic; C34.90 Malignant neoplasm of unspecified part of unspecified bronchus or lung; C79.9 Secondary malignant neoplasm of unspecified site; G40.909 Epilepsy, unspecified, not intractable, without status epilepticus; J44.9 Chronic obstructive pulmonary disease, unspecified; E78.00 Pure hypercholesterolemia, unspecified; I10 Essential (primary) hypertension; G62.9 Polyneuropathy, unspecified; Z99.81 Dependence on supplemental oxygen; Z88.6 Allergy status to analgesic agent; Z79.51 Long term (current) use of inhaled steroids; Z87.891 Personal history of nicotine dependence; Z82.49 Family history of ischemic heart disease and other diseases of the circulatory system; W19.XXXA Unspecified fall, initial encounter
CPT/HCPCS: 71046; 73060

== ENCOUNTER → 2019-02-03 | Outpatient (CLI) | payer MEDICARE, MEDICAID ==
[~2019-02-03] MED LIST changes: +CANE1EAC26 MC
--- NOTE | 2019-02-03 18:08 | Diagnostic Imaging Report ---
INDICATION: Fall three days ago. Study interpreted in correlation with CT of 11/25/2018. FINDINGS: Lucency owing to odontoid type 2 fracture unchanged. Mild dorsal angulation of the distal tip may be slightly more pronounced than on prior, but this may be on a positional basis. There is a grade 1 anterolisthesis of C3 on C4, C4 on C5, and to a lesser extent C5 on C6 with trace C6 on C7 retrolisthesis. Malalignments are accompanied by severe degenerative disc space narrowing, endplate sclerosis, and facet arthrosis and are unchanged from the previous CT. IMPRESSION: Known odontoid fracture redemonstrated. Multilevel grade 1 degenerative listheses unchanged. No obvious new abnormality; however, the odontoid tip may be slightly more angulated dorsally. Owing to the severity of degenerative change and the known previous fracture, in the setting of new injury with persistent pain, consider follow-up with repeat CT to be compared with the study of 11/25/2018. Dictated by: Dictated on workstation # [id number]
== END ==
LOC: RAD 16:14
PROVIDERS: ATTEND Family Medicine
DX: M47.812 Spondylosis without myelopathy or radiculopathy, cervical region (principal); S12.110D Anterior displaced Type II dens fracture, subsequent encounter for fracture with routine healing; W19.XXXD Unspecified fall, subsequent encounter
CPT/HCPCS: 72040

== ENCOUNTER 2019-02-11 13:03 | Outpatient (RCR) | payer MEDICARE, MEDICAID ==
[2018-11-19 14:45] LABS: BASOPHILS % (AUTO) 0 % (0-10); EOSINOPHILS % (AUTO) 0 % (0-10); HEMATOCRIT 35 % (40-54); HEMOGLOBIN 11.7 G/DL (13.3-17.7); LYMPHOCYTES # (AUTO) 0.8 X 10^3 (1.0-4.0); LYMPHOCYTES % (AUTO) 14 % (12-44); MEAN CORPUSCULAR HEMOGLOBIN 28 PG (25-34); MEAN CORPUSCULAR HGB CONC 33 G/DL (32-36); MEAN CORPUSCULAR VOLUME 84 FL (80-99); MEAN PLATELET VOLUME 8.8 FL (7.4-10.4); MONOCYTES # (AUTO) 0.8 X 10^3 (0.0-1.0); MONOCYTES % (AUTO) 14 % (0-12); NEUTROPHILS # (AUTO) 4.2 X 10^3 (1.8-7.8); NEUTROPHILS % (AUTO) 72 % (42-75); PLATELET COUNT 222 10^3/uL (130-400); RED CELL DISTRIBUTION WIDTH 18.1 % (10.0-14.5); WHITE BLOOD COUNT 5.9 10^3/uL (4.3-11.0)
[2018-11-19 15:16] LABS: ALANINE AMINOTRANSFERASE 19 U/L (0-55); ALBUMIN 4.4 GM/DL (3.2-4.5); ALKALINE PHOSPHATASE 175 U/L (40-136); BILIRUBIN,TOTAL 0.4 MG/DL (0.1-1.0); BUN/CREATININE RATIO 14; CALCIUM 9.2 MG/DL (8.5-10.1); CARBON DIOXIDE 28 MMOL/L (21-32); CHLORIDE 96 MMOL/L (98-107); CREATININE SERUM 0.73 MG/DL (0.60-1.30); GFR ESTIMATED > 60; GLUCOSE 103 MG/DL (70-105); POTASSIUM 4.4 MMOL/L (3.6-5.0); SODIUM 131 MMOL/L (135-145); TOTAL PROTEIN 7.4 GM/DL (6.4-8.2)
[2018-12-17 14:06] LABS: BASOPHILS % (AUTO) 0 % (0-10); EOSINOPHILS % (AUTO) 0 % (0-10); HEMATOCRIT 36 % (40-54); HEMOGLOBIN 11.7 G/DL (13.3-17.7); LYMPHOCYTES # (AUTO) 1.1 X 10^3 (1.0-4.0); LYMPHOCYTES % (AUTO) 19 % (12-44); MEAN CORPUSCULAR HEMOGLOBIN 28 PG (25-34); MEAN CORPUSCULAR HGB CONC 32 G/DL (32-36); MEAN CORPUSCULAR VOLUME 87 FL (80-99); MEAN PLATELET VOLUME 8.7 FL (7.4-10.4); MONOCYTES % (AUTO) 17 % (0-12); NEUTROPHILS # (AUTO) 3.8 X 10^3 (1.8-7.8); NEUTROPHILS % (AUTO) 64 % (42-75); PLATELET COUNT 289 10^3/uL (130-400); RED CELL DISTRIBUTION WIDTH 16.8 % (10.0-14.5)
[2018-12-17 14:28] LABS: ALANINE AMINOTRANSFERASE 14 U/L (0-55); ALBUMIN 4.3 GM/DL (3.2-4.5); ALKALINE PHOSPHATASE 167 U/L (40-136); BILIRUBIN,TOTAL 0.3 MG/DL (0.1-1.0); BUN/CREATININE RATIO 17; CALCIUM 9.2 MG/DL (8.5-10.1); CARBON DIOXIDE 29 MMOL/L (21-32); CHLORIDE 99 MMOL/L (98-107); CREATININE SERUM 0.77 MG/DL (0.60-1.30); GFR ESTIMATED > 60; GLUCOSE 81 MG/DL (70-105); POTASSIUM 4.6 MMOL/L (3.6-5.0); SODIUM 137 MMOL/L (135-145); TOTAL PROTEIN 7.4 GM/DL (6.4-8.2)
[2019-01-14 14:03] LABS: BASOPHILS % (AUTO) 0 % (0-10); EOSINOPHILS % (AUTO) 0 % (0-10); HEMATOCRIT 36 % (40-54); HEMOGLOBIN 11.8 G/DL (13.3-17.7); LYMPHOCYTES # (AUTO) 0.8 X 10^3 (1.0-4.0); LYMPHOCYTES % (AUTO) 14 % (12-44); MEAN CORPUSCULAR HEMOGLOBIN 28 PG (25-34); MEAN CORPUSCULAR HGB CONC 32 G/DL (32-36); MEAN CORPUSCULAR VOLUME 88 FL (80-99); MEAN PLATELET VOLUME 8.7 FL (7.4-10.4); MONOCYTES # (AUTO) 0.9 X 10^3 (0.0-1.0); MONOCYTES % (AUTO) 14 % (0-12); NEUTROPHILS # (AUTO) 4.4 X 10^3 (1.8-7.8); NEUTROPHILS % (AUTO) 72 % (42-75); PLATELET COUNT 227 10^3/uL (130-400); WHITE BLOOD COUNT 6.1 10^3/uL (4.3-11.0)
[2019-01-14 14:54] LABS: ALANINE AMINOTRANSFERASE 12 U/L (0-55); ALBUMIN 4.2 GM/DL (3.2-4.5); ALKALINE PHOSPHATASE 205 U/L (40-136); BILIRUBIN,TOTAL 0.2 MG/DL (0.1-1.0); BUN/CREATININE RATIO 13; CALCIUM 8.9 MG/DL (8.5-10.1); CARBON DIOXIDE 29 MMOL/L (21-32); CHLORIDE 97 MMOL/L (98-107); CREATININE SERUM 0.76 MG/DL (0.60-1.30); GFR ESTIMATED > 60; GLUCOSE 96 MG/DL (70-105); POTASSIUM 4.4 MMOL/L (3.6-5.0); SODIUM 134 MMOL/L (135-145); TOTAL PROTEIN 7.1 GM/DL (6.4-8.2)
[~2019-02-11 13:03] MED LIST changes: +NIVOLUMAB 480 MG in NS (IVPB) CANCER CENTER 100 ML IV SCH; +NS IV 1000 ML (CANCER CTR) IV SCH
[2019-02-11 13:27] LABS: BASOPHILS % (AUTO) 0 % (0-10); EOSINOPHILS % (AUTO) 0 % (0-10); HEMATOCRIT 35 % (40-54); HEMOGLOBIN 11.7 G/DL (13.3-17.7); LYMPHOCYTES # (AUTO) 1.1 X 10^3 (1.0-4.0); LYMPHOCYTES % (AUTO) 15 % (12-44); MEAN CORPUSCULAR HEMOGLOBIN 29 PG (25-34); MEAN CORPUSCULAR HGB CONC 33 G/DL (32-36); MEAN CORPUSCULAR VOLUME 88 FL (80-99); MEAN PLATELET VOLUME 8.3 FL (7.4-10.4); MONOCYTES % (AUTO) 14 % (0-12); NEUTROPHILS # (AUTO) 5.1 X 10^3 (1.8-7.8); NEUTROPHILS % (AUTO) 71 % (42-75); PLATELET COUNT 280 10^3/uL (130-400); RED CELL DISTRIBUTION WIDTH 14.6 % (10.0-14.5); WHITE BLOOD COUNT 7.2 10^3/uL (4.3-11.0)
[2019-02-11 13:45] LABS: ALANINE AMINOTRANSFERASE 16 U/L (0-55); ALBUMIN 4.1 GM/DL (3.2-4.5); ALKALINE PHOSPHATASE 168 U/L (40-136); BILIRUBIN,TOTAL 0.2 MG/DL (0.1-1.0); BUN/CREATININE RATIO 20; CALCIUM 8.6 MG/DL (8.5-10.1); CARBON DIOXIDE 26 MMOL/L (21-32); CHLORIDE 98 MMOL/L (98-107); CREATININE SERUM 0.71 MG/DL (0.60-1.30); GFR ESTIMATED > 60; GLUCOSE 96 MG/DL (70-105); POTASSIUM 4.2 MMOL/L (3.6-5.0); SODIUM 135 MMOL/L (135-145)
[2019-02-18] MEDS ORDERED: ATOR20TA66 PO (15:38)
[2019-02-18] MEDS ORDERED: BUDE10.2 INH (15:38)
[2019-02-18] MEDS ORDERED: FLUT12AE4 IH (15:48)
[2019-02-18] MEDS ORDERED: HYDR-3812 PO (15:48)
[2019-02-18] MEDS ORDERED: ROPI0.5T2 PO (15:48)
[2019-02-18] MEDS ORDERED: PRD10T PO (15:58)
[2019-02-18] MEDS ORDERED: MELA5CAP PO (15:59)
== END 2019-02-17 | disposition home or self-care (01) ==
LOC: ONC 13:03
PROVIDERS: ATTEND Internal Medicine Hematology & Oncology
DX: Z51.11 Encounter for antineoplastic chemotherapy (principal); C34.12 Malignant neoplasm of upper lobe, left bronchus or lung; C79.51 Secondary malignant neoplasm of bone; J43.9 Emphysema, unspecified; G40.909 Epilepsy, unspecified, not intractable, without status epilepticus; E78.5 Hyperlipidemia, unspecified; Z87.891 Personal history of nicotine dependence; Z79.899 Other long term (current) drug therapy
CPT/HCPCS: 36415; 36591; 80053; 84443; 85025; 96413

== ENCOUNTER → 2019-02-15 | Outpatient (CLI) | payer MEDICARE, MEDICAID ==
[~2019-02-15] MED LIST changes: +BUDE10.2 INH; +MELA5CAP PO; -NIVOLUMAB 480 MG in NS (IVPB) CANCER CENTER 100 ML IV SCH; -NS IV 1000 ML (CANCER CTR) IV SCH; +ROPI0.5T2 PO
--- NOTE | 2019-02-15 09:46 | Diagnostic Imaging Report ---
PROCEDURE: CT cervical spine without contrast. TECHNIQUE: Multiple contiguous axial images were obtained through the cervical spine without the use of intravenous contrast. Sagittal and coronal reformations were then performed. Auto Exposure Controls were utilized during the CT exam to meet ALARA standards for radiation dose reduction. INDICATION: Fall and neck pain. Comparison is made with prior CT cervical spine study from 11/25/2018. Previously seen odontoid fracture appears to be very similar to prior exam from October. Marginal osteolysis and erosive changes with mild diastases, is similar to prior study. Overall alignment is unchanged. Bony canal remains patent. No bony bridging has occurred since prior study. No new fracture is detected. There is multilevel degenerative disc disease with variable disc space narrowing and marginal spurring. Minimal anterolisthesis C3 on C4 and retrolisthesis C6 on C7 is unchanged. There is minimal anterolisthesis C5 on C6. Multilevel facet arthropathy is seen. Prevertebral tissues are normal. IMPRESSION: No significant change in odontoid fracture when compared with study dating back to 11/25/2018. This remains unhealed. No bony bridging is identified. There is no new fracture. Generalized cervical spondylosis is again noted. Dictated by: Dictated on workstation # [id number]
== END ==
LOC: RAD 07:55
PROVIDERS: ATTEND Family Medicine
DX: S12.110A Anterior displaced Type II dens fracture, initial encounter for closed fracture (principal); M47.812 Spondylosis without myelopathy or radiculopathy, cervical region; W19.XXXA Unspecified fall, initial encounter
CPT/HCPCS: 72125

== ENCOUNTER 2019-02-18 12:52 | Inpatient (IN) | payer MEDICARE, MEDICAID ==
[~2019-02-18] VITALS: Ht 182.9 cm; Wt 77.4 kg
[~2019-02-18 12:52] MED LIST changes: -BUDE10.2 INH; -MELA5CAP PO; -ROPI0.5T2 PO
--- NOTE | 2019-02-18 13:07 | ED Head Injury ---
General Chief Complaint: Trauma-Non Activation Stated Complaint: FALL Source: patient Exam Limitations: no limitations History of Present Illness Date Seen by Provider: Feb 18, 2019 Time Seen by Provider: 13:03 Initial Comments 63-year-old male presents following a fall. Patient fell backwards and hit his head. Patient has a approximate one-inch laceration on the posterior aspect of his head. Patient family reported to EMS that he had a jerking motion and fell backwards. Patient does have a known seizure disorder since he was 6 years old. Patient also has a history of lung cancer with chronic shortness of breath. He has some mild increased shortness of breath today. When EMS arrived they report he is on home oxygen that delivers on-demand to the nasal cannula however patient was breathing through his mouth. One switched to a normal nasal cannula patient oxygen was in acceptable upper 90s. Patient was in a c-collar due to concern of recent possible cervical fracture. He did have a recent CT that was negative. No reports of fever, increased cough or other systemic complaints at this time. Allergies and Home Medications Allergies Coded Allergies: aspirin (Unverified Allergy, Mild, DOES NOT WORK WELL W/ OTHER MEDS, 10/05/18) ibuprofen (Unverified Allergy, Mild, 10/05/18) Home Medications Albuterol Sulfate 2.5 Mg/3 Ml Vial.neb, 2.5 MG NEB QID, (Reported) Albuterol Sulfate 1 Puff Puff, 2 PUFF IH Q6H PRN for SHORTNESS OF BREATH, (Reported) 1 PUFF = 90 MCG Amlodipine Besylate 5 Mg Tablet, 5 MG PO 0800, (Reported) LAST FILLED #90 12-25-17 Atorvastatin Calcium 20 Mg Tablet, 20 MG PO 0300 Prescribed by: FRAN DELACRUZ on 06/26/18 1254 Carbamazepine 200 Mg Tablet, 200 MG PO 0800,2300,0300, (Reported) Carbamazepine 200 Mg Tablet, 400 MG PO 1500, (Reported) TAKES 2 (200 MG) TABLETS Cefdinir 300 Mg Capsule, 300 MG PO BID Prescribed by: FRAN DELACRUZ on 06/26/18 1254 Cefdinir 300 Mg Capsule, 300 MG PO BID Prescribed by: ERIN ETIENNE on 07/24/18 1157 Fluticasone/Salmeterol 12 Gm Hfa.aer.ad, 2 PUFF INH BID, (Reported) Gabapentin 300 Mg Capsule, 300 MG PO 2300, (Reported) Gabapentin 600 Mg Tablet, 600 MG PO 0800,1500, (Reported) Hydrocodone Bit/Acetaminophen 1 Tab Tab, 0.5 EACH PO Q4-6HR PRN for PAIN- MODERATE Prescribed by: NESTOR AVILEZ on 08/12/18 1850 Hydrocodone/Acetaminophen 1 Each Tablet, 1 TAB PO TID PRN for PAIN-MODERATE, (Reported) Lamotrigine 100 Mg Tablet, 100 MG PO 1500,2300, (Reported) Lamotrigine 25 Mg Tablet, 25 MG PO 1500,0300, (Reported) Lisinopril 20 Mg Tablet, 20 MG PO 0300, (Reported) LAST FILLED #90 12-25-17 Meloxicam 7.5 Mg Tablet, 7.5 MG PO DAILY, (Reported) Omeprazole 20 Mg Capsule.dr, 20 MG PO DAILY PRN for HEARTBURN, (Reported) Ondansetron 4 Mg Tab.rapdis, 4 MG PO TID PRN for NAUSEA/VOMITING-1ST LINE, (Reported) Phenytoin Sodium Extended 100 Mg Capsule, 200 MG PO 0800,1500, (Reported) LAST FILLED A 90 DAY SUPPLY 12-22-17 TAKES 2 (100 MG) CAPSULES Phenytoin Sodium Extended 100 Mg Capsule, 100 MG PO 2300, (Reported) LAST FILLED A 90 DAY SUPPLY 12-22-17 Tiotropium [place] 1 Inh Aerp, 1 CAP IH DAILY, (Reported) Patient Home Medication List Home Medication List Reviewed: Yes Review of Systems Review of Systems Constitutional: No chills, No fever Eyes: No Symptoms Reported Respiratory: cough, short of breath Cardiovascular: No chest pain Gastrointestinal: no symptoms reported Genitourinary: no symptoms reported Musculoskeletal: no symptoms reported Skin: no symptoms reported Past Ozfdylb-Ujlakq-Pqaqkn Hx Past Med/Social Hx: Reviewed Nursing Past Med/Soc Hx Patient Social History Drug of Choice: HX OF RX DRUG ABUSE, CLAIMS NONE 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 Type Used: Cigars, Cigarettes Former Smoker, Quit: May 01, 2017 2nd Hand Smoke Exposure: No Recent Hopitalizations: No Immunizations Up To Date Tetanus Booster (TDap): Less than 5yrs PED Vaccines UTD: Yes Date of Influenza Vaccine: Apr 21, 2018 Seasonal Allergies Seasonal Allergies: Yes Past Medical History Surgeries: Yes (PORT RIGHT CHEST; CT GUIDED BX OF FEMUR; BILATERAL CATARACT SURGERY) Eye Surgery, Gallbladder Respiratory: Yes Asthma, Pneumonia, Chronic Bronchitis, Sleep Apnea, COPD Currently Using CPAP: No Currently Using BIPAP: No Cardiac: Yes Heart Murmur, High Cholesterol, Hypertension, Valvular Heart Disease 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) Neuropathy, Seizure Disorder, Vertigo Reproductive Disorders: No Sexually Transmitted Disease: No HIV/AIDS: No Genitourinary: No Gastrointestinal: Yes (CHRONIC NAUSEA/VOMITING) Musculoskeletal: Yes (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 3.0oz. 79.250347dr; 23.00 BMI Method:Stated General Appearance: WD/WN, no apparent distress HEENT: PERRL/EOMI Cardiovascular: normal peripheral pulses, regular rate, rhythm Respiratory: decreased breath sounds (right greater than left, mild wheezing ) Gastrointestinal: non tender, soft Extremities: normal range of motion, non-tender Psychiatric: alert, oriented x 3 Cra[place] Nerves: normal hearing, normal speech Motor/Sensory: no motor deficit, no sensory deficit Skin: other (3 cm laceration posterior scalp ) Procedures/Interventions Date of ETT Placement: Mar 09, 2017 Time of ETT Placement: 1811 Wound Location: Scalp Wound Length (cm): 3 Wound's Depth, Shape: superficial Wound Explored: clean Wound Debrided: minimal Staple Repair: Stapler 35W Suture Size: 5-0 Number of Sutures: 3 Progress/Results/Core Measures Results/Orders Lab Results Laboratory Tests Test 02/18/19 13:00 02/18/19 13:05 Range/Units White Blood Count 18.1 H 4.3-11.0 10^3/uL Red Blood Count 4.59 4.35-5.85 10^6/uL Hemoglobin 13.3 13.3-17.7 G/DL Hematocrit 40 40-54 % Mean Corpuscular Volume 88 80-99 FL Mean Corpuscular Hemoglobin 29 25-34 PG Mean Corpuscular Hemoglobin Concent 33 32-36 G/DL Red Cell Distribution Width 14.6 H 10.0-14.5 % Platelet Count 284 130-400 10^3/uL Mean Platelet Volume 8.8 7.4-10.4 FL Neutrophils (%) (Auto) 85 H 42-75 % Lymphocytes (%) (Auto) 5 L 12-44 % Monocytes (%) (Auto) 10 0-12 % Eosinophils (%) (Auto) 0 0-10 % Basophils (%) (Auto) 0 0-10 % Neutrophils # (Auto) 15.4 H 1.8-7.8 X 10^3 Lymphocytes # (Auto) 0.9 L 1.0-4.0 X 10^3 Monocytes # (Auto) 1.8 H 0.0-1.0 X 10^3 Eosinophils # (Auto) 0.0 0.0-0.3 10^3/uL Basophils # (Auto) 0.0 0.0-0.1 10^3/uL Neutrophils % (Manual) 80 % Lymphocytes % (Manual) 8 % Monocytes % (Manual) 10 % Eosinophils % (Manual) 0 % Basophils % (Manual) 0 % Band Neutrophils 2 % Blood Morphology Comment NORMAL Sodium Level 133 L 135-145 MMOL/L Potassium Level 4.4 3.6-5.0 MMOL/L Chloride Level 93 L 98-107 MMOL/L Carbon Dioxide Level 29 21-32 MMOL/L Anion Gap 11 5-14 MMOL/L Blood Urea Nitrogen 10 7-18 MG/DL Creatinine 0.77 0.60-1.30 MG/DL Estimat Glomerular Filtration Rate > 60 BUN/Creatinine Ratio 13 Glucose Level 113 H 70-105 MG/DL Calcium Level 9.7 8.5-10.1 MG/DL Corrected Calcium 8.5-10.1 MG/DL Total Bilirubin 0.5 0.1-1.0 MG/DL Aspartate Amino Transf (AST/SGOT) 15 5-34 U/L Alanine Aminotransferase (ALT/SGPT) 16 0-55 U/L Alkaline Phosphatase 196 H 40-136 U/L Troponin I < 0.028 <0.028 NG/ML Total Protein 8.1 6.4-8.2 GM/DL Albumin 4.6 H 3.2-4.5 GM/DL Glucometer 121 H 70-110 MG/DL My Orders Orders - KYREE SEVILLA DO Ct Head/Cervical Spine Wo (02/18/19 13:00) Cbc With Automated Diff (02/18/19 13:00) Comprehensive Metabolic Panel (02/18/19 13:00) Troponin I (02/18/19 13:00) Accucheck Stat ONCE (02/18/19 13:00) Manual Differential (02/18/19 13:00) Chest 1 View, Ap/Pa Only (02/18/19 13:48) Levofloxacin 750 Mg/150 Ml Iv (Levaquin (02/18/19 14:30) Vital Signs/I&O 02/18/19 12:58 Temp 37.9 Pulse 96 Resp 20 B/P (MAP) 171/101 (124) O2 Delivery Non Rebreather O2 Flow Rate 10.00 Departure Communication (Admissions) Time/Spoke to Admitting Phy: 14:20 Continue home seizure medications, CBC CMP and CXR in the a.m. Impression Primary Impression: Pneumonia, community acquired Qualified Codes: J18.9 - Pneumonia, unspecified organism Additional Impression: Scalp laceration Qualified Codes: S01.01XA - Laceration without foreign body of scalp, initial encounter Disposition: ADMITTED INPATIENT Condition: Stable Admissions Decision to Admit Reason: Admit from ER (General) Decision to Admit/Date: Feb 18, 2019 Time/Decision to Admit Time: 14:20 Departure-Patient Inst. Referrals: AMANDEEP GENAO DO (PCP/Family) Primary Care Physician KYREE SEVILLA DO Feb 18, 2019 13:06 POS
[2019-02-18 13:10] LABS: BASOPHILS % (AUTO) 0 % (0-10); EOSINOPHILS % (AUTO) 0 % (0-10); HEMATOCRIT 40 % (40-54); HEMOGLOBIN 13.3 G/DL (13.3-17.7); LYMPHOCYTES # (AUTO) 0.9 X 10^3 (1.0-4.0); LYMPHOCYTES % (AUTO) 5 % (12-44); MEAN CORPUSCULAR HEMOGLOBIN 29 PG (25-34); MEAN CORPUSCULAR HGB CONC 33 G/DL (32-36); MEAN CORPUSCULAR VOLUME 88 FL (80-99); MEAN PLATELET VOLUME 8.8 FL (7.4-10.4); MONOCYTES # (AUTO) 1.8 X 10^3 (0.0-1.0); MONOCYTES % (AUTO) 10 % (0-12); NEUTROPHILS # (AUTO) 15.4 X 10^3 (1.8-7.8); NEUTROPHILS % (AUTO) 85 % (42-75); PLATELET COUNT 284 10^3/uL (130-400); RED CELL DISTRIBUTION WIDTH 14.6 % (10.0-14.5); WHITE BLOOD COUNT 18.1 10^3/uL (4.3-11.0)
[2019-02-18 13:31] LABS: ALANINE AMINOTRANSFERASE 16 U/L (0-55); ALBUMIN 4.6 GM/DL (3.2-4.5); ALKALINE PHOSPHATASE 196 U/L (40-136); BILIRUBIN,TOTAL 0.5 MG/DL (0.1-1.0); BUN/CREATININE RATIO 13; CALCIUM 9.7 MG/DL (8.5-10.1); CARBON DIOXIDE 29 MMOL/L (21-32); CHLORIDE 93 MMOL/L (98-107); CREATININE SERUM 0.77 MG/DL (0.60-1.30); GFR ESTIMATED > 60; GLUCOSE 113 MG/DL (70-105); POTASSIUM 4.4 MMOL/L (3.6-5.0); SODIUM 133 MMOL/L (135-145); TOTAL PROTEIN 8.1 GM/DL (6.4-8.2)
[2019-02-18 13:41] LABS: BAND NEUTROPHILS 2 %; BASOPHILS % (MANUAL) 0 %; EOSINOPHILS % (MANUAL) 0 %; LYMPHOCYTES % (MANUAL) 8 %; MONOCYTES % (MANUAL) 10 %; NEUTROPHILS % (MANUAL) 80 %; RBC MORPH NORMAL
--- NOTE | 2019-02-18 14:01 | Diagnostic Imaging Report ---
INDICATION: Fall. FINDINGS: Heart size is normal. There is bibasilar atelectasis and/or pneumonitis. There is no pneumothorax. Mediastinum is unremarkable. Hpgptm-o-Iuhy catheter overlies the right hemithorax. IMPRESSION: Bibasilar atelectasis and/or pneumonitis, right greater than left. Mild venous congestion. Dictated by: Dictated on workstation # [id number]
--- NOTE | 2019-02-18 14:05 | Diagnostic Imaging Report ---
EXAMINATION: CT head and CT cervical spine without contrast. TECHNIQUE: Multiple contiguous axial images were obtained through the brain and cervical spine without the use of intravenous contrast. Sagittal and coronal reformations through the cervical spine were then performed. All CT scans use one or more of the following dose optimizing techniques: automated exposure control, MA and/or KvP adjustment based on a patient size and exam type, or iterative reconstruction. HISTORY: Seizure and fall COMPARISON: 02/15/2019 and 11/25/2018 FINDINGS: There is volume loss in the right cerebral hemisphere with ex vacuo dilation of the right lateral ventricle. The murphy-white matter differentiation is normal. No mass effect or midline shift. Basilar cisterns are patent. There are no intra- or extra-axial fluid collections. There is no intracranial hemorrhage. The orbits are normal. Paranasal sinuses are normal. Mastoid air cells are clear. No soft tissue abnormality is seen. No osseus lesions or fractures are seen. There is an unchanged type III dens fracture with diastases of the fracture fragments. The alignment and degree of distraction is unchanged. Craniocervical junction is normal. There is mild anterolisthesis of C3 on C4 and retrolisthesis of C6 on C7. There is severe disc height loss at C3-C4 and C5-C7. Multilevel facet arthropathy bilaterally as well as uncovertebral disease. No new fracture is seen. Vertebral body heights are normal. There is no osseus spinal canal stenosis. No soft tissue abnormality is seen in the neck. Limited views of the superior thorax are normal. IMPRESSION: 1. No acute intracranial abnormality. 2. Stable type III dens fracture with diastases of the fracture fragments. The alignment is unchanged and there is no new fracture. Dictated by: Dictated on workstation # [id number]
[2019-02-18] MEDS ORDERED: LEVOFLOXACIN 750 MG/150 ML IV 150 ML IV ONE (14:30)
[2019-02-18 15:17] VITALS: BP 108/78
[2019-02-18 15:30] VITALS: BP 143/78
[2019-02-18] MEDS ORDERED: BUDE10.2 INH (15:38)
[2019-02-18] MEDS ORDERED: ATOR20TA66 PO (15:38)
[2019-02-18] MEDS ORDERED: ROPI0.5T2 PO (15:48)
[2019-02-18] MEDS ORDERED: FLUT12AE4 IH (15:48)
[2019-02-18] MEDS ORDERED: HYDR-3812 PO (15:48)
[2019-02-18] MEDS ORDERED: PRD10T PO (15:58)
[2019-02-18] MEDS ORDERED: MELA5CAP PO (15:59)
[2019-02-18] MEDS ORDERED: RT-ALBUTEROL/IPRATROPIUM 3 ML (DUONEB) VIAL IH PRN (16:00)
--- NOTE | 2019-02-18 16:00 | NUR ---
SPOKE WITH THE PATIENT ABOUT HIS MEDICATIONS. HE HAD A DETAILED MED LIST HOWEVER THERE ARE SEVERAL MEDICATIONS THAT HAVE BEEN FILLED RECENTLY ACCORDING TO THE EXT MED HX THAT ARE NOT ON HIS LIST. I WENT OVER THOSE MEDS AND HE VERIFIED HOW HE TAKES THEM. I CALLED VELVET TO VERIFY HIS LISINOPRIL AND LAMICTAL 25MG. SHE STATES HE IS NO LONGER TAKING THE LISINOPRIL EVEN THOUGH IT IS STILL ON HIS LIST BUT HE IS TAKING LAMICTAL EVERYDAY EVEN THOUGH IT WAS LAST FILLED FOR 10 DAYS 01-26-19. HE FILLED PREDNISONE 10MG #42 FOR 12 DAYS 02-02-19 HOWEVER VELVET STATES HE WAS TO TAKE 2 TABS DAILY X 2 WEEKS THEN 1 TAB DAILY X 2 WEEKS SO HE HAS NOT FINISHED THAT THERAPY YET. HE LAST FILLED: 01-26-19 LAMICTAL 25MG #10 12-22-17 LISINOPRIL 20MG #90 (VELVET STATES HE IS NO LONGER TAKING) HE TAKES HIS DILANTIN AND TEGRETOL ONE TAB LESS A DAY THAN IT IS PRESCRIBED, THIS IS HOW HE HAS REPORTED IT THE LAST SEVERAL ADMISSIONS.
[2019-02-18] MEDS: NS IV 1000 ML 1,000 ML IV SCH (16:13)
[2019-02-18] MEDS ORDERED: CATHETER FLUSH 10 ML SYR IV PRN (16:15)
[2019-02-18] MEDS ORDERED: predniSONE 10 MG TAB PO SCH (17:30)
[2019-02-18] MEDS ORDERED: OMEPRAZOLE 20 MG (PriLOSEC) CAP NON-FORMULARY PO PRN (17:30)
[2019-02-18] MEDS ORDERED: RT-ALBUTEROL SULF 2.5 MG/3 ML PRE-MIX VIAL INH PRN (17:30)
[2019-02-18] MEDS ORDERED: NON-FORMULARY MEDICATION 1 EA EA (Hydrocodone/Acetaminophen (Hydrocodone-Acetamin 5-325 mg PO PRN (17:30)
[2019-02-18] MEDS ORDERED: NON-FORMULARY MEDICATION 1 EA EA (Budesonide/Formoterol Fumarate (Symbicort 160-4.5 Mcg In INH PRN (17:30)
[2019-02-18] MEDS ORDERED: HYDROcodone/APAP 5 MG/325 MG (LORTAB) TAB PO PRN (18:00)
[2019-02-18] MEDS ORDERED: PANTOPRAZOLE 20 MG TABLET (PROTONIX) PO PRN (18:00)
--- NOTE | 2019-02-18 18:05 | History & Physical ---
History of Present Illness History of Present Illness Reason for visit/HPI Patient states he fell in the bathroom. Inpatient 1 out to the kitchen and fell again and hit his head and has 1 inch laceration of scalp. Patient is morning had a seizure lasted 45 seconds and postictal for 15 minutes. Patient has been short of breath the last 3 days. Patient brought out by EMS. Chest x-ray shows bilateral pneumonia worse on the right basilar Date of Admission Feb 18, 2019 at 14:30 Time Seen by a Provider: 17:58 I consulted on this patient on 02/18/19 17:58 Attending Physician Micky Genao DO Admitting Physician Micky Genao DO Consult Allergies and Home Medications Allergies Coded Allergies: aspirin (Unverified Allergy, Mild, DOES NOT WORK WELL W/ OTHER MEDS, 10/05/18) ibuprofen (Unverified Allergy, Mild, 10/05/18) Home Medications Albuterol Sulfate 2.5 Mg/3 Ml Vial.neb, 2.5 MG NEB Q4H PRN for SHORTNESS OF BREATH, (Reported) Albuterol Sulfate 1 Puff Puff, 2 PUFF IH Q6H PRN for SHORTNESS OF BREATH, (Reported) 1 PUFF = 90 MCG Amlodipine Besylate 5 Mg Tablet, 5 MG PO 0800, (Reported) Atorvastatin Calcium 20 Mg Tablet, 20 MG PO 0300, (Reported) Budesonide/Formoterol Fumarate 10.2 Gm Hfa.aer.ad, 2 PUFF INH BID PRN for WHEN OUT OF ADVAIR, (Reported) Carbamazepine 200 Mg Tablet, 200 MG PO 0800,2300,0300, (Reported) Carbamazepine 200 Mg Tablet, 400 MG PO 1500, (Reported) TAKES 2 (200 MG) TABLETS Fluticasone/Salmeterol 12 Gm Hfa.aer.ad, 1 PUFF IH BID, (Reported) Gabapentin 300 Mg Capsule, 300 MG PO 2300, (Reported) Gabapentin 600 Mg Tablet, 600 MG PO 0800,1500, (Reported) Hydrocodone/Acetaminophen 1 Each Tablet, 1 TAB PO BID PRN for PAIN-MODERATE (5- 7), (Reported) Lamotrigine 100 Mg Tablet, 100 MG PO 1500,2300, (Reported) Lamotrigine 25 Mg Tablet, 25 MG PO 1500,0300, (Reported) LAST FILLED #10 10-29-19 Melatonin 5 Mg Capsule, 5 MG PO HS, (Reported) Meloxicam 7.5 Mg Tablet, 7.5 MG PO 1500, (Reported) Omeprazole 20 Mg Capsule.dr, 20 MG PO DAILY PRN for HEARTBURN, (Reported) Phenytoin Sodium Extended 100 Mg Capsule, 200 MG PO 1500, (Reported) TAKES 2 (100 MG) CAPSULES Phenytoin Sodium Extended 100 Mg Capsule, 100 MG PO 0800,2300, (Reported) Prednisone 10 Mg Tab, PO UD, (Reported) TAKE 2 TABS DAILY X 2 WEEKS THEN TAKE 1 TAB DAILY X 2 WEEKS FILLED #42 11-5-19 Ropinirole HCl 0.5 Mg Tablet, 0.5 MG PO 1500, (Reported) Tiotropium [place] 1 Inh Aerp, 1 CAP IH 1500, (Reported) Patient Home Medication List Home Medication List Reviewed: Yes Past Uuxzmkn-Lbngnl-Gprruz Hx Past Med/Social Hx: Reviewed Nursing Past Med/Soc Hx Patient Social History Marrital Status: Employed/Student: retired Alcohol Use: Denies Use Recreational Drug Use: Yes (not current, 15 years ago-ETOH and PO drugs) Drug of Choice: HX OF RX DRUG ABUSE, CLAIMS NONE 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 Smoking Status: Former Smoker Former Smoker, Quit: May 01, 2017 Type Used: Cigars, Cigarettes 2nd Hand Smoke Exposure: No Recent Foreign Travel: No Contact w/other who traveled: No Recent Hopitalizations: Yes Recent Infectious Disease Expo: No Immunizations Up To Date Tetanus Booster (TDap): Less than 5yrs Pediatric: Yes Date of Influenza Vaccine: Apr 21, 2018 Seasonal Allergies Seasonal Allergies: Yes Past Medical History Surgeries: Eye Surgery, Gallbladder Respiratory: COPD, Emphysema, Pneumonia Currently Using CPAP: No Currently Using BIPAP: No Cardiac: Heart Murmur, High Cholesterol, Hypertension, Valvular Heart Disease Neurological: Neuropathy, Seizure Disorder, Vertigo Reproductive: No Sexually Transmitted Disease: No HIV/AIDS: No Musculoskeletal: Arthritis, Fractures Loss of Vision: Denies Hearing Impairment: Denies Cancer: Bone, Lung Did You Recieve Any Treatments: Yes What Type of Treatment Did You: Chemotherapy History of Blood Disorders: No Adverse Reaction to Blood Sal[place]o: No Family History Diabetes mellitus 19 MOTHER Hypercholesterolemia 19 FATHER Hypertension 19 FATHER Review of Systems Constitutional: weakness, other (Short of breath with exertion) EENTM: no symptoms reported Respiratory: dyspnea on exertion, short of breath, other (COPD, lung cancer) Cardiovascular: no symptoms reported Gastrointestinal: no symptoms reported Genitourinary: no symptoms reported Physical Exam Vital Signs Vital Signs - First Documented 02/18/19 02/18/19 12:58 14:55 Temp 37.9 Pulse 96 Resp 20 B/P (MAP) 171/101 (124) Pulse Ox 95 O2 Delivery Non Rebreather O2 Flow Rate 10.00 Capillary Refill : Less Than 3 Seconds Height, Weight, BMI Height: 6'0" Weight: 174lbs. 3.0oz. [id number]; 23.13 BMI Method:Stated General Appearance: No Apparent Distress, WD/WN Eyes: Bilateral Eye Normal Inspection HEENT: Normal ENT Inspection Neck: Other (Cervical fracture unhealed) Respiratory: No Accessory Muscle Use, No Respiratory Distress, Decreased Breath Sounds Cardiovascular: Regular Rate, Rhythm, No Murmur Gastrointestinal: Non Tender, Soft Assessment/Plan Assessment and Plan Fall. Scalp laceration. Head trauma. Pneumonia. COPD. Weakness. Shortness of breath. Lung cancer. Seizures. Hyperlipidemia Admission Diagnosis Admission Status: Inpatient Order (span 2 midnights) Reason for Inpatient Admission: Pneumonia. fall Short of breath. Weakness Clinical Quality Measures DVT/VTE Risk/Contraindication: Risk Factor Score Per Nursin RFS Level Per Nursing on Admit: 4+=Very High MICKY GENAO DO Feb 18, 2019 18:04 POS
[2019-02-18] MEDS: ENOXAPARIN 40 MG/0.4 ML (LOVENOX) SYR SC SCH (18:51)
[2019-02-18 19:36] VITALS: BP 160/87
[2019-02-18] MEDS: RT-ADVAIR HFA 115/21 MCG PER PUFF IH SCH (19:44)
[2019-02-18] MEDS ORDERED: NON-FORMULARY MEDICATION 1 EA EA (Melatonin 5 MG) PO SCH (21:00)
[2019-02-18] MEDS: ACETAMINOPHEN 500 MG TAB (TYLENOL) PO PRN (21:38)
[2019-02-18] MEDS: MELATONIN 3 MG TABLET PO SCH (22:30)
[2019-02-18] MEDS ORDERED: CARBAMAZEPINE 200 MG PO SCH (23:00)
[2019-02-18] MEDS ORDERED: NON-FORMULARY MEDICATION 1 EA EA (Phenytoin Sodium Extended 100 MG) PO SCH (23:00)
[2019-02-18] MEDS ORDERED: NON-FORMULARY MEDICATION 1 EA EA (Lamotrigine 100 MG) PO SCH (23:00)
[2019-02-19] VITALS (7 sets, daily range): BP systolic 136–170; BP diastolic 75–94
[2019-02-19] MEDS: GABAPENTIN 300 MG (NEURONTIN) CAP PO SCH ×2 (00:03→21:05)
[2019-02-19] MEDS: carBAMazepine 200 MG (TEGretol) TAB PO SCH ×5 (00:03→21:05)
[2019-02-19] MEDS: PHENYTOIN 100 MG (DILANTIN) CAP PO SCH ×4 (00:03→21:05)
[2019-02-19] MEDS: NS IV 1000 ML 1,000 ML IV SCH ×3 (02:36→21:05)
[2019-02-19] MEDS ORDERED: LAMOTRIGINE 25 MG PO SCH (03:00)
[2019-02-19] MEDS: lamoTRIgine 25 MG (LaMICtal) TAB PO SCH ×2 (04:09→15:59)
[2019-02-19] MEDS: ACETAMINOPHEN 500 MG TAB (TYLENOL) PO PRN ×2 (04:14→21:44)
[2019-02-19 05:31] LABS: BASOPHILS % (AUTO) 0 % (0-10); EOSINOPHILS % (AUTO) 0 % (0-10); HEMATOCRIT 34 % (40-54); LYMPHOCYTES # (AUTO) 0.8 X 10^3 (1.0-4.0); LYMPHOCYTES % (AUTO) 6 % (12-44); MEAN CORPUSCULAR HEMOGLOBIN 29 PG (25-34); MEAN CORPUSCULAR HGB CONC 33 G/DL (32-36); MEAN CORPUSCULAR VOLUME 88 FL (80-99); MEAN PLATELET VOLUME 8.4 FL (7.4-10.4); MONOCYTES # (AUTO) 1.8 X 10^3 (0.0-1.0); MONOCYTES % (AUTO) 13 % (0-12); NEUTROPHILS # (AUTO) 11.2 X 10^3 (1.8-7.8); NEUTROPHILS % (AUTO) 82 % (42-75); PLATELET COUNT 252 10^3/uL (130-400); RED CELL DISTRIBUTION WIDTH 14.3 % (10.0-14.5); WHITE BLOOD COUNT 13.7 10^3/uL (4.3-11.0)
[2019-02-19 05:55] LABS: ALANINE AMINOTRANSFERASE 11 U/L (0-55); ALBUMIN 3.8 GM/DL (3.2-4.5); ALKALINE PHOSPHATASE 148 U/L (40-136); BILIRUBIN,TOTAL 0.5 MG/DL (0.1-1.0); BUN/CREATININE RATIO 12; CALCIUM 8.7 MG/DL (8.5-10.1); CARBON DIOXIDE 26 MMOL/L (21-32); CHLORIDE 95 MMOL/L (98-107); CREATININE SERUM 0.66 MG/DL (0.60-1.30); GFR ESTIMATED > 60; GLUCOSE 102 MG/DL (70-105); SODIUM 132 MMOL/L (135-145); TOTAL PROTEIN 6.7 GM/DL (6.4-8.2)
[2019-02-19] MEDS: predniSONE 10 MG TAB PO SCH (05:58)
--- NOTE | 2019-02-19 07:02 | Diagnostic Imaging Report ---
INDICATION: Pneumonia. Portable chest 3:19 AM There is some atelectasis at the right lung base. Right IJ Port-A-Cath tip projects over the SVC. Heart size and pulmonary vascularity are normal. Lungs are clear. IMPRESSION: Right basilar atelectasis. No change from previously. Dictated by: Dictated on workstation # [id number]
[2019-02-19] MEDS ORDERED: NON-FORMULARY MEDICATION 1 EA EA (Amlodipine Besylate 5 MG) PO SCH (08:00)
--- NOTE | 2019-02-19 08:05 | Progress Note ---
Subjective Time Seen by a Provider: 08:03 Subjective/Events-last exam Patient feeling better today.. PT and OT to work with patient. Patient had problem with swallowing this morning. Objective Exam Vital Signs Date Time Temp Pulse Resp B/P (MAP) Pulse Ox O2 Delivery O2 Flow Rate FiO2 02/19/19 03:50 36.5 79 20 170/84 (112) 93 Nasal Cannula 3.00 02/19/19 03:40 95 Nasal Cannula 4.00 02/19/19 00:00 36.8 71 16 153/94 (113) 96 Nasal Cannula 3.00 02/18/19 22:10 37.0 02/18/19 21:38 37.9 02/18/19 20:30 Nasal Cannula 3.00 02/18/19 19:43 92 Nasal Cannula 4.00 02/18/19 19:36 37.9 91 24 160/87 (111) 94 Nasal Cannula 3.00 02/18/19 18:00 37.9 02/18/19 15:30 38.3 91 20 143/78 (99) 96 Nasal Cannula 3.00 02/18/19 15:30 96 Nasal Cannula 3.00 02/18/19 15:17 38.0 90 18 108/78 95 Nasal Cannula 3.00 02/18/19 14:55 37.0 92 20 139/90 (124) 95 Nasal Cannula 2.00 02/18/19 12:58 37.9 96 20 171/101 (124) Non Rebreather 10.00 I & O 02/19/19 07:00 Intake Total 3650 ml Output Total 2150 ml Balance 1500 ml Capillary Refill : Less Than 3 Seconds General Appearance: No Apparent Distress, WD/WN HEENT: Normal ENT Inspection Neck: Full Range of Motion, Normal Inspection Respiratory: No Accessory Muscle Use, No Respiratory Distress, Decreased Breath Sounds Cardiovascular: Regular Rate, Rhythm, No Murmur Gastrointestinal: non tender, soft Results Lab Laboratory Tests 02/18/19 13:00 02/19/19 05:15 Laboratory Tests 02/18/19 13:00: White Blood Count 18.1H, Red Blood Count 4.59, Hemoglobin 13.3, Hematocrit 40, Mean Corpuscular Volume 88, Mean Corpuscular Hemoglobin 29, Mean Corpuscular Hemoglobin Concent 33, Red Cell Distribution Width 14.6H, Platelet Count 284, Mean Platelet Volume 8.8, Neutrophils (%) (Auto) 85H, Lymphocytes (%) (Auto) 5L, Monocytes (%) (Auto) 10, Eosinophils (%) (Auto) 0, Basophils (%) (Auto) 0, Neutr ophils # (Auto) 15.4H, Lymphocytes # (Auto) 0.9L, Monocytes # (Auto) 1.8H, Eosinophils # (Auto) 0.0, Basophils # (Auto) 0.0, Neutrophils % (Manual) 80, Lymphocytes % (Manual) 8, Monocytes % (Manual) 10, Eosinophils % (Manual) 0, Basophils % (Manual) 0, Band Neutrophils 2, Blood Morphology Comment NORMAL, Sodium Level 133L, Potassium Level 4.4, Chloride Level 93L, Carbon Dioxide Level 29, Anion Gap 11, Blood Urea Nitrogen 10, Creatinine 0.77, Estimat Glomerular Filtration Rate > 60, BUN/Creatinine Ratio 13, Glucose Level 113H, Calcium Level 9.7, Corrected Calcium , Total Bilirubin 0.5, Aspartate Amino Transf (AST/SGOT) 15, Alanine Aminotransferase (ALT/SGPT) 16, Alkaline Phosphatase 196H, Troponin I < 0.028, Total Protein 8.1, Albumin 4.6H 02/18/19 13:05: Glucometer 121H 02/19/19 05:15: White Blood Count 13.7H, Red Blood Count 3.84L, Hemoglobin 11.0L, Hematocrit 34L , Mean Corpuscular Volume 88, Mean Corpuscular Hemoglobin 29, Mean Corpuscular Hemoglobin Concent 33, Red Cell Distribution Width 14.3, Platelet Count 252, Mean Platelet Volume 8.4, Neutrophils (%) (Auto) 82H, Lymphocytes (%) (Auto) 6L, Monocytes (%) (Auto) 13H, Eosinophils (%) (Auto) 0, Basophils (%) (Auto) 0, Neutrophils # (Auto) 11.2H, Lymphocytes # (Auto) 0.8L, Monocytes # (Auto) 1.8H, Eosinophils # (Auto) 0.0, Basophils # (Auto) 0.0, Sodium Level 132L, Potassium Level 4.0, Chloride Level 95L, Carbon Dioxide Level 26, Anion Gap 11, Blood Urea Nitrogen 8, Creatinine 0.66, Estimat Glomerular Filtration Rate > 60, BUN/Creatinine Ratio 12, Glucose Level 102, Calcium Level 8.7, Corrected Calcium 8.9, Total Bilirubin 0.5, Aspartate Amino Transf (AST/SGOT) 14, Alanine Aminotransferase (ALT/SGPT) 11, Alkaline Phosphatase 148H, Total Protein 6.7, Albumin 3.8 Assessment/Plan Assessment/Plan Assess & Plan/Chief Complaint fall. Head trauma. Scalp laceration. Pneumonia. COPD. Lung cancer. Seizure. History of cervical fracture Clinical Quality Measures Admission Status Admission Dx Fall. Scalp laceration. Head trauma. Pneumonia. COPD. Weakness. Shortness of breath. Lung cancer. Seizures. Hyperlipidemia DVT/VTE Risk/Contraindication: Risk Factor Score Per Nursin RFS Level Per Nursing on Admit: 4+=Very High AMANDEEP GENAO DO Feb 19, 2019 08:05 POS
[2019-02-19] MEDS: amLODIPine 5 MG (NORVASC) TAB PO SCH (09:17)
[2019-02-19] MEDS: GABAPENTIN 600 MG (NEURONTIN) TAB PO SCH ×2 (09:17→15:59)
--- NOTE | 2019-02-19 09:18 | History & Physical ---
History of Present Illness History of Present Illness Reason for visit/HPI CC: Syncope, Head Trauma HPI: 63 yo male presented to the ER yesterday after fainting and hitting his head. Patient was returning to living room after micturition when he fainted. Patient said that no one saw him fall but his daughter in the other room heard him fall and went to check on him. Patient stated that he did have head pain rating it as an 11 out of 10. Patient now describes the pain as dull and a 1 out of 10. Pain does not travel anywhere. Patient denied lightheadedness or dizziness. Patient does have a history of seizure since he was 6 yo Date of Admission Feb 18, 2019 at 14:30 Date Seen by a Provider: Feb 19, 2019 Time Seen by a Provider: 08:45 I consulted on this patient on 02/19/19 09:12 Attending Physician Micky Feng DO Admitting Physician Micky Feng DO Consult Allergies and Home Medications Allergies Coded Allergies: aspirin (Unverified Allergy, Mild, DOES NOT WORK WELL W/ OTHER MEDS, 10/05/18) ibuprofen (Unverified Allergy, Mild, 10/05/18) Home Medications Albuterol Sulfate 2.5 Mg/3 Ml Vial.neb, 2.5 MG NEB Q4H PRN for SHORTNESS OF BREATH, (Reported) Albuterol Sulfate 1 Puff Puff, 2 PUFF IH Q6H PRN for SHORTNESS OF BREATH, (Reported) 1 PUFF = 90 MCG Amlodipine Besylate 5 Mg Tablet, 5 MG PO 0800, (Reported) Atorvastatin Calcium 20 Mg Tablet, 20 MG PO 0300, (Reported) Budesonide/Formoterol Fumarate 10.2 Gm Hfa.aer.ad, 2 PUFF INH BID PRN for WHEN OUT OF ADVAIR, (Reported) Carbamazepine 200 Mg Tablet, 200 MG PO 0800,2300,0300, (Reported) Carbamazepine 200 Mg Tablet, 400 MG PO 1500, (Reported) TAKES 2 (200 MG) TABLETS Fluticasone/Salmeterol 12 Gm Hfa.aer.ad, 1 PUFF IH BID, (Reported) Gabapentin 300 Mg Capsule, 300 MG PO 2300, (Reported) Gabapentin 600 Mg Tablet, 600 MG PO 0800,1500, (Reported) Hydrocodone/Acetaminophen 1 Each Tablet, 1 TAB PO BID PRN for PAIN-MODERATE (5- 7), (Reported) Lamotrigine 100 Mg Tablet, 100 MG PO 1500,2300, (Reported) Lamotrigine 25 Mg Tablet, 25 MG PO 1500,0300, (Reported) LAST FILLED #10 01-26- Melatonin 5 Mg Capsule, 5 MG PO HS, (Reported) Meloxicam 7.5 Mg Tablet, 7.5 MG PO 1500, (Reported) Omeprazole 20 Mg Capsule.dr, 20 MG PO DAILY PRN for HEARTBURN, (Reported) Phenytoin Sodium Extended 100 Mg Capsule, 200 MG PO 1500, (Reported) TAKES 2 (100 MG) CAPSULES Phenytoin Sodium Extended 100 Mg Capsule, 100 MG PO 0800,2300, (Reported) Prednisone 10 Mg Tab, PO UD, (Reported) TAKE 2 TABS DAILY X 2 WEEKS THEN TAKE 1 TAB DAILY X 2 WEEKS FILLED #42 -5- Ropinirole HCl 0.5 Mg Tablet, 0.5 MG PO 1500, (Reported) Tiotropium [place] 1 Inh Aerp, 1 CAP IH 1500, (Reported) Patient Home Medication List Home Medication List Reviewed: Yes Past Vszsena-Pepiyy-Tddloy Hx Patient Social History Marrital Status: cohabiting Employed/Student: retired Alcohol Use: Denies Use (quit in 96) Recreational Drug Use: Yes (Quit in 96) Drug of Choice: HX OF RX DRUG ABUSE, CLAIMS NONE 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 Smoking Status: Former Smoker Former Smoker, Quit: May 01, 2017 Type Used: Cigars, Cigarettes 2nd Hand Smoke Exposure: No Recent Foreign Travel: No Contact w/other who traveled: No Recent Hopitalizations: Yes Recent Infectious Disease Expo: No Immunizations Up To Date Tetanus Booster (TDap): Less than 5yrs Pediatric: Yes Date of Influenza Vaccine: Apr 21, 2018 Seasonal Allergies Seasonal Allergies: Yes Surgeries Yes (PORT RIGHT CHEST; CT GUIDED BX OF FEMUR; BILATERAL CATARACT SURGERY, Bronchoscopy) Eye Surgery, Gallbladder Respiratory Yes COPD, Emphysema, Pneumonia Currently Using CPAP: No Currently Using BIPAP: No Cardiovascular Yes Heart Murmur, High Cholesterol, Hypertension, Valvular Heart Disease Neurological 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) Neuropathy, Seizure Disorder, Vertigo Reproductive System Hx Reproductive Disorders: No Sexually Transmitted Disease: No HIV/AIDS: No Genitourinary No Gastrointestinal Yes (CHRONIC NAUSEA/VOMITING) Musculoskeletal Yes (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) Arthritis, Fractures Endocrine History of Endocrine Disorders: No HEENT History of HEENT Disorders: No Loss of Vision: Denies Hearing Impairment: Denies Cancer Yes Bone, Lung Did You Recieve Any Treatments: Yes Type of Treatment: Chemotherapy (currently receiving treatment) Psychosocial History of Psychiatric Problem: No Integumentary History of Skin or Integumenta: No Blood Transfusions History of Blood Disorders: No Adverse Reaction to a Blood Tr: No Family Medical History Significant Family History: Heart Disease (Father had [place]) Family Hx: Diabetes mellitus 19 MOTHER Hypercholesterolemia 19 FATHER Hypertension 19 FATHER Review of Systems Constitutional: No chills, No dizziness; fever; No weakness EENTM: No blurred vision, No vision loss, No nose pain Respiratory: No cough, No hemoptysis Cardiovascular: No chest pain, No edema; syncope Gastrointestinal: No abdominal pain, No nausea, No vomiting Genitourinary: no symptoms reported Musculoskeletal: other (Head pain) Skin: no symptoms reported Psychiatric/Neurological: Denies Numbness, Denies Tingling Physical Exam Vital Signs Vital Signs - First Documented 02/18/19 02/18/19 12:58 14:55 Temp 37.9 Pulse 96 Resp 20 B/P (MAP) 171/101 (124) Pulse Ox 95 O2 Delivery Non Rebreather O2 Flow Rate 10.00 Capillary Refill : Less Than 3 Seconds Height, Weight, BMI Height: 6'0" Weight: 174lbs. 3.0oz. 79.119477iu; 23.13 BMI Method:Stated General Appearance: No Apparent Distress, WD/WN Eyes: Bilateral Eye Normal Inspection HEENT: PERRL/EOMI Neck: Full Range of Motion, Normal Inspection, Non Tender Respiratory: Chest Non Tender, No Accessory Muscle Use, No Respiratory Distress, Wheezing Cardiovascular: Regular Rate, Rhythm, Normal Peripheral Pulses (Radial 2/4 bilateral) Gastrointestinal: Non Tender, Soft Neurologic/Psychiatric: Alert, Oriented x3 Assessment/Plan Assessment and Plan Head trauma history of seizures COPD Pneumoniae Possible micturition syncope Monitor chest x-ray, electrolytes ambulate only with help Admission Diagnosis Admission Status: Inpatient Order (span 2 midnights) Reason for Inpatient Admission: Head Trauma SOPD Pneumoniae Clinical Quality Measures DVT/VTE Risk/Contraindication: Risk Factor Score Per Nursin RFS Level Per Nursing on Admit: 4+=Very High Supervisory-Addendum Brief Verification & Attestation Participated in pt care: other (KRYSTLE Durbin with Dr. Feng) Personally performed: other (KRYSTLE Durbin with Dr. Feng) Care discussed with: other (KRYSTLE Durbin with Dr. Feng) Procedures: n/a KRYSTLE Durbin with CELESTINA Rubio [facility] Feb 19, 2019 09:18 POS
[2019-02-19] MEDS: RT-ALBUTEROL/IPRATROPIUM 3 ML (DUONEB) VIAL INH SCH ×4 (10:26→21:33)
[2019-02-19] MEDS: RT-ADVAIR HFA 115/21 MCG PER PUFF IH SCH ×2 (10:27→18:29)
[2019-02-19] MEDS: LEVOFLOXACIN 750 MG TAB (LEVAQUIN) PO SCH (11:50)
--- NOTE | 2019-02-19 13:30 | Physical Therapy Evaluation ---
PT Evaluation-General Medical Diagnosis Admission Date Feb 18, 2019 at 14:30 Medical Diagnosis: pneumonia, weakness Onset Date: Feb 18, 2019 Therapy Diagnosis Therapy Diagnosis: weakness Height/Weight Height (Feet): 6 Height (Inches): 0 Weight (Pounds): 174 Weight (Ounces): 3.0 Precautions Precautions/Isolations: Fall Prevention, Standard Precautions Referral Physician: Jung Reason for Referral: Evaluation/Treatment Medical History Pertinent Medical History: Arthritis, COPD, Heart Failure, HTN, Post Polio Syndrome, Smoking Current History EMS secondary to falls at home and head laceration Reviewed History: Yes Social History Home: Single Level Current Living Status: Significant Other Entry Into Home: Stairs With Railing PT Steps Into Home: 2 Prior Prior Level of Function SCALE: Activities may be completed with or without assistive devices. 1-Wkxfjwyixa-fclyqqq completes the activity by him/herself with no assistance from a helper. 5-Set-up or Clean-up Assistance-helper sets up or cleans up; patient completes activity. [place] assists only prior to or following the activity. 4-Supervision or Touching Assistance-helper provides verbal cues and/or touching/steadying and/or contact guard assistance as patient completes activity. Assistance may be provided throughout the activity or intermittently. 3-Partial/Moderate Assistance-helper does LESS THAN HALF the effort. [place] lifts, holds or supports trunk or limbs, but provides less than half the effort. 2-Substantial/Maximal Assistance-helper does MORE THAN HALF the effort. [place] lifts or holds trunk or limbs and provides more than half the effort. 1-Ufzhmcqni-sntmwf does ALL the effort. Patient does none of the effort to complete the activity. Or, the assistance of 2 or more helpers is required for the patient to complete the activity. If activity was not attempted, code reason: 7-Patient Refused. 9-Not Applicable-not attempted and the patient did not perform the activity before the current illness, exacerbation or injury. 10-Not Attempted due to Environmental Limitations-(lack of equipment, weather restraints, etc.). 88-Not Attempted due to Medical Conditions or Safety Concerns. Bed Mobility: 6 Transfers (B,C,W/C): 6 Gait: 6 Stairs: 6 Indoor Mobility (Ambulation): Independent Stairs: Independent Prior Devices Use: None, Walker (Rarely uses) PT Evaluation-Current Subjective Patient agrees to PT at this time. States he is having no pain. Pain Numeric Pain Scale: 0-No Pain Location: No Pain Reported Objective Patient Orientation: Normal For Age Attachments: Oxygen (3L), IV ROM/Strength ROM Lower Extremities WFL Strength Lower Extremities RLE: grossly 4/5; LLE: grossly 3/5 Integumentary/Posture Integumentary See nursing notes Bowel Incontinence: No Bladder Incontinence: No Posture WFL Neuromuscular (Tone, Coordination, Reflexes) Post-polio syndrome-L sided weakness and contractures Sensory Vision: Functional Hearing: Functional Transfers Roll Left to Right (QC): 6 Sit to Lying (QC): 6 Lying to Sitting/Side of Bed(Q: 6 Sit to Stand (QC): 6 Chair/Txl-pd-Zcyev Xfer(QC): 4 Car Transfer (QC): 10 Gait Does the Patient Walk?: Yes Mode of Locomotion: Walk Anticipated Mode of Locomotion: Walk Walk 10 feet (QC): 4 Walk 50 ft with 2 Turns(QC): 4 Walk 150 ft (QC): 4 Walking 10ft/uneven surface-QC: 88 Distance: 150 Gait Assistive Device: FWW Comments/Gait Description CGA for LOB; slightly unsteady gait with one episode of balance walk; does not normally ambulate with walker. Wheelchair Training Does the Pt Use a Wheelchair?: No Wheel 50 ft with 2 turns (QC): 9 Wheel 150 ft (QC): 9 Type of Wheelchair: Manual Stairs 1 Step (curb) (QC): 88 4 Steps (QC): 88 12 Steps (QC): 88 Balance Sitting Static: Normal Sitting Dynamic: Normal Standing Static: Fair Standing Dynamic: Fair Picking up an Object (QC): 88 Assessment/Needs Patient able to demonstrate good ROM and functional strength in BLE. Weakness noted in MMT in LLE d/t post-polio syndrome. Patient performed bed mobility and standing independently. Patient had one LOB at initial onset of gait. Ambulated 150' with FWW with slightly unsteady gait but did not have any other LOB. Demonstrated difficulty staying inside walker during ambulation. Patient seated in chair with OT present for evaluation at conclusion of treatment. Patient generally impulsive with transfers and ambulation decisions. Rehab Potential: Fair PT Custodial Goals Chaser Helper Goals PT Chaser Helper Goals Time Frame: Feb 26, 2019 Roll Left & Right (QC): 6 Sit to Lying (QC): 6 Lying-Sitting on Side/Bed(QC): 6 Sit to Stand (QC): 6 Chair/Nyq-kk-Dfzlg Xfer(QC): 6 Toilet Transfer (QC): 6 Car Transfer (QC): 6 Does the Patient Walk: Yes Walk 10 feet (QC): 6 Walk 50ft with 2 Turns (QC): 6 Walk 150 ft (QC): 6 Walking 10ft on Uneven Surface: 6 1 Step (curb) (QC): 6 4 Steps (QC): 6 12 Steps (QC): 9 Picking up an Object (QC): 9 Does the Pt use WC or Scooter?: No Type: N/A Type: N/A PT Plan Problem List Problem List: Activity Tolerance, Functional Strength, Safety, Balance, Gait, Transfer, Bed Mobility Treatment/Plan Treatment Plan: Continue Plan of Care Treatment Plan: Bed Mobility, Education, Functional Activity Jessica, Functional Strength, Gait, Safety, Therapeutic Exercise, Transfers Treatment Duration: Feb 26, 2019 Frequency: 6 times per week Estimated Hrs Per Day: .25 hour per day Patient and/or Family Agrees t: Yes Time/GCodes Time In: 1257 Time Out: 1315 Total Billed Treatment Time: 18 Total Billed Treatment 1 visit EVLowC 18min LAVON LAMAS PT Feb 19, 2019 13:30 POS
--- NOTE | 2019-02-19 13:45 | Occupational Therapy Eval ---
OT Evaluation-General/PLF Medical Diagnosis Admission Date Feb 18, 2019 at 14:30 Medical Diagnosis: pneumonia, weakness Onset Date: Feb 18, 2019 Therapy Diagnosis Therapy Diagnosis: Decreased functional mobility and ADL function Height/Weight Height (Feet): 6 Height (Inches): 0 Weight (Pounds): 174 Weight (Ounces): 3.0 Precautions Precautions/Isolations: Fall Prevention, Standard Precautions Safety Interventions: Bed Exit Alarm Referral Physician: Jung Referral Reason: Activity Tolerance, Self Care, Evaluation/Treatment, Strengthening/ROM Medical History Pertinent Medical History: Arthritis, COPD, Heart Failure, HTN, Post Polio Syndrome, Smoking Additional Medical History seizure disorder, arthritis, lung Ca, SOB, drug abuse (clen 15 years), COPD, high cholesterol, heart murmur, HTN, valvular heart disease, post-polio syndrome (L sided weakness/ contractures), home 02 at 4L Current History Patient states he fell in the bathroom. Inpatient 1 out to the kitchen and fell again and hit his head and has 1 inch laceration of scalp. Patient is morning had a seizure lasted 45 seconds and postictal for 15 minutes. Patient has been short of breath the last 3 days. Patient brought out by EMS. Chest x-ray shows bilateral pneumonia worse on the right basilar Reviewed History: Yes Social History Home: Single Level Current Living Status: Significant Other Entry Into Home: Stairs With Railing Steps Into Home: 2 ADL-Prior Level of Function SCALE: Activities may be completed with or without assistive devices. 1-Lnfjvkzxdi-txxagjv completes the activity by him/herself with no assistance from a helper. 5-Set-up or Clean-up Assistance-helper sets up or cleans up; patient completes activity. [place] assists only prior to or following the activity. 4-Supervision or Touching Assistance-helper provides verbal cues and/or touching/steadying and/or contact guard assistance as patient completes activity. Assistance may be provided throughout the activity or intermittently. 3-Partial/Moderate Assistance-helper does LESS THAN HALF the effort. [place] lifts, holds or supports trunk or limbs, but provides less than half the effort. 2-Substantial/Maximal Assistance-helper does MORE THAN HALF the effort. [place] lifts or holds trunk or limbs and provides more than half the effort. 1-Tuyzchioj-pzfmnv does ALL the effort. Patient does none of the effort to complete the activity. Or, the assistance of 2 or more helpers is required for the patient to complete the activity. If activity was not attempted, code reason: 7-Patient Refused. 9-Not Applicable-not attempted and the patient did not perform the activity before the current illness, exacerbation or injury. 10-Not Attempted due to Environmental Limitations-(lack of equipment, weather restraints, etc.). 88-Not Attempted due to Medical Conditions or Safety Concerns. ADL PLOF Comments Pt states he is IND with all ADL tasks, though girlfriend completes his shower as he maintains balance in shower by grabbing onto rich. Later states girlfriend/ daughter will assist in dressing depending on strength that day. Self Care: Needed Some Help Functional Cognition: Independent DME/Equipment: Tub/Shower DME/Equipment Comments IND without AE Occupation: retired Drive Self: Yes (though hasn't driven self in ~3 months) Leisure Interests: "sitting, TV" OT Current Status Subjective Pt seen in recliner chair post-PT session, pt states no pain, gives history. Pt denies seizure led to fall. Pt agreeable to OT evaluation. Appearance 02 and IV Mental Status/Objective Patient Orientation: Person, Place, Situation, Normal For Age Attachments: IV, Oxygen (4L) Current Glasses/Contacts: Yes Hearing Aids: No Dentures/Partials: No Hand Dominance: Right Upper Extremity ROM B UE shoulders limited to ~90* flexion/ abduction L hand contracted to semi-fisted position, able to complete finger opposition and states only difficulty is picking up small items. Pt able to use BUE to don sock. Upper Extremity Coordination R WFL L hand contracted to semi-fisted position, able to complete finger opposition and states only difficulty is picking up small items. Pt able to use BUE to don sock. Upper Extremity Sensation No c/o paresthesias Upper Extremity Strength Decreased bilaterally ADL-Treatment Eating (QC): 6 Oral Hygiene (QC): 7 Shower/Bathe Self (QC): 7 Upper Body Dressing (QC): 7 Lower Body Dressing (QC): 6 On/Off Footwear (QC): 6 Toileting Hygiene (QC): 7 Toilet Transfer (QC): 7 Other Treatments Pt educated on OT role, educated on tub transfer/ shower chair and grab bar use within shower. Pt denies need for bathroom or dressing. Pt states he is able to complete UB/ LB dressing with IND. Pt completes sock don/ doffing with IND in chair. Pt completes drinking from glass, able to laterally bend trunk to reach phone on bed from chair. Pt states he feels more SOB than normal. Pt educated on diaphragmatic breathing techniques and sitting up throughout the day. Pt demonstrates breathing techniques through nose, able to breathe with good te chnique. Pt questioned on abilities to utilize bathroom since here, pt denies out of chair activities but states he has been utilizing the urinal. Based on sit to stand and UE coordination, pt able to complete toileting/ toilet hygiene with SBA/ SUP. Pt left in recliner chair, call light in reach, all needs met. Education OT Patient Education: Correct positioning, Exercise program, Modified ADL techniques, Purpose of tx/functional activities, Safety issues, Other (breathing techniques) Teaching Recipient: Patient Teaching Methods: Demonstration, Discussion Response to Teaching: Verbalize Understanding, Return Demonstration OT Halfway Goals Halfway Goals Time Frame: Feb 19, 2019 Eating (QC): 6 Oral Hygiene (QC): 7 Toileting Hygiene (QC): 7 Shower/Bathe Self (QC): 7 Upper Body Dressing (QC): 7 Lower Body Dressing (QC): 6 On/Off Footwear (QC): 6 Additional Goals: 2-Verbalize Understanding 1=Demonstrate adherence to instructed precautions during ADL tasks. 2=Patient will verbalize/demonstrate understanding of assistive devices/modifications for ADL. 3=Patient will improve strength/tolerance for activity to enable patient to perform ADL's. OT Education/Plan Problem List/Assessment Assessment: No Skilled OT Needs ID'd Discharge Recommendations Plan/Recommendations: Discharge/Goals Met Therapy Discharge Recommendati: Home & Family Equpiment Recommendations-D/C: Extended Bath Bench, Rails on Tub/Shower Patient/Family Goals "Return home" Treatment Plan/Plan of Care Treatment,Training & Education: Yes Patient would benefit from OT for education, treatment and training to promote independence in ADL's, mobility, safety and/or upper extremity function for ADL's. Plan of Care: OTHER (eval only, edu provided) Treatment Duration: Feb 19, 2019 Frequency: 1 time per week (eval only) Time/GCodes Start Time: 13:15 Stop Time: 13:33 Total Time Billed (hr/min): 18 Billed Treatment Time 1, EVM (18) BILLIE BRAXTON OTR Feb 19, 2019 13:45 POS
[2019-02-19] MEDS ORDERED: LEVOFLOXACIN 750 MG/D5W 150 ML PRE-MIX IV SCH (14:30)
[2019-02-19] MEDS ORDERED: NON-FORMULARY MEDICATION 1 EA EA (Phenytoin Sodium Extended 200 MG) PO SCH (15:00)
[2019-02-19] MEDS ORDERED: NON-FORMULARY MEDICATION 1 EA EA (Ropinirole HCl 0.5 MG) PO SCH (15:00)
[2019-02-19] MEDS ORDERED: CARBAMAZEPINE 400 MG PO SCH (15:00)
--- NOTE | 2019-02-19 15:57 | NUR ---
Pastoral care visit.
[2019-02-19] MEDS: MELOXICAM 7.5 MG (MOBIC) TABLET PO SCH (16:00)
[2019-02-19] MEDS: rOPINIRole 1 MG (REQUIP) TABLET PO SCH (16:07)
[2019-02-19] MEDS: ENOXAPARIN 40 MG/0.4 ML (LOVENOX) SYR SC SCH (17:58)
[2019-02-19] MEDS: MELATONIN 3 MG TABLET PO SCH (21:05)
[2019-02-20] VITALS: BP 157/73
[2019-02-20] MEDS: carBAMazepine 200 MG (TEGretol) TAB PO SCH ×3 (02:04→15:04)
[2019-02-20] MEDS: lamoTRIgine 25 MG (LaMICtal) TAB PO SCH ×2 (02:04→15:04)
[2019-02-20] MEDS: RT-ALBUTEROL/IPRATROPIUM 3 ML (DUONEB) VIAL INH SCH ×4 (02:15→14:21)
[2019-02-20 04:42] LABS: BASOPHILS % (AUTO) 0 % (0-10); EOSINOPHILS % (AUTO) 0 % (0-10); HEMATOCRIT 33 % (40-54); HEMOGLOBIN 10.7 G/DL (13.3-17.7); LYMPHOCYTES # (AUTO) 0.6 X 10^3 (1.0-4.0); LYMPHOCYTES % (AUTO) 9 % (12-44); MEAN CORPUSCULAR HEMOGLOBIN 29 PG (25-34); MEAN CORPUSCULAR HGB CONC 33 G/DL (32-36); MEAN CORPUSCULAR VOLUME 89 FL (80-99); MONOCYTES # (AUTO) 1.1 X 10^3 (0.0-1.0); MONOCYTES % (AUTO) 16 % (0-12); NEUTROPHILS # (AUTO) 5.2 X 10^3 (1.8-7.8); NEUTROPHILS % (AUTO) 75 % (42-75); PLATELET COUNT 220 10^3/uL (130-400); RED CELL DISTRIBUTION WIDTH 14.2 % (10.0-14.5); WHITE BLOOD COUNT 6.9 10^3/uL (4.3-11.0)
[2019-02-20 04:57] LABS: BUN/CREATININE RATIO 11; CALCIUM 8.8 MG/DL (8.5-10.1); CARBON DIOXIDE 25 MMOL/L (21-32); CHLORIDE 101 MMOL/L (98-107); CREATININE SERUM 0.65 MG/DL (0.60-1.30); GFR ESTIMATED > 60; GLUCOSE 116 MG/DL (70-105); SODIUM 136 MMOL/L (135-145)
[2019-02-20] MEDS: predniSONE 10 MG TAB PO SCH (05:58)
[2019-02-20] MEDS: RT-ADVAIR HFA 115/21 MCG PER PUFF IH SCH ×2 (06:33→08:41)
[2019-02-20] MEDS: NS IV 1000 ML 1,000 ML IV SCH (07:21)
[2019-02-20 07:52] VITALS: BP 148/80
[2019-02-20] MEDS: GABAPENTIN 600 MG (NEURONTIN) TAB PO SCH ×2 (08:45→15:04)
[2019-02-20] MEDS: amLODIPine 5 MG (NORVASC) TAB PO SCH (08:45)
[2019-02-20] MEDS: PHENYTOIN 100 MG (DILANTIN) CAP PO SCH ×2 (08:45→15:05)
[2019-02-20] MEDS: LEVOFLOXACIN 750 MG TAB (LEVAQUIN) PO SCH (10:47)
--- NOTE | 2019-02-20 11:26 | Discharge Summary ---
Diagnosis/Chief Complaint Date of Admission Feb 18, 2019 at 14:30 Date of Discharge Discharge Date: Feb 20, 2019 Primary Care Micky Fneg DO Discharge Summary Discharge Physical Exam Allergies: Coded Allergies: aspirin (Unverified Allergy, Mild, DOES NOT WORK WELL W/ OTHER MEDS, 10/05/18) ibuprofen (Unverified Allergy, Mild, 10/05/18) Vitals & I&Os Vital Signs Date Time Temp Pulse Resp B/P (MAP) Pulse Ox O2 Delivery O2 Flow Rate FiO2 02/20/19 16:30 37.0 65 20 144/73 98 Nasal Cannula 4.00 General Appearance: No Apparent Distress, Chronically ill Respiratory: No Accessory Muscle Use, No Respiratory Distress, Wheezing (baseline per patient) Cardiovascular: Regular Rate, Rhythm, No Murmur Neurologic/Psychiatric: Alert, Oriented x3 Hospital Course Pt was admitted to the hospital due to bilateral pneumonia. he was treated with IV abx and had significant improvement in his symptoms. He returned to his baseline oxygen requirement of 4lpm. he was transitioned to oral antibiotics in preparation for discharge. on day of discharge he was adamant about going home. He is to follow-up with his primary care doctor, Dr. Feng. Of note he did have seizures prior to admission but was restarted on his home antiepileptics an d remained seizure-free. Labs (last 24 hrs) Patient resulted labs reviewed. Pending Labs Discussion & Recommendations Discharge Planning: >30 minutes discharge planning Discharge Home Medications: Active Scripts Active Prednisone 10 Mg Tab 10 Mg PO DAILY Levofloxacin 750 Mg Tablet 750 Mg PO DAILY@1100 Reported Melatonin 5 Mg Capsule 5 Mg PO HS Ropinirole HCl 0.5 Mg Tablet 0.5 Mg PO 1500 Hydrocodone-Acetamin 5-325 mg (Hydrocodone/Acetaminophen) 1 Each Tablet 1 Tab PO BID PRN Advair Hfa 115-21 Mcg Inhaler (Fluticasone/Salmeterol) 12 Gm Hfa.aer.ad 1 Puff IH BID Symbicort 160-4.5 Mcg Inhaler (Budesonide/Formoterol Fumarate) 10.2 Gm Hfa.aer.ad 2 Puff INH BID PRN Atorvastatin Calcium 20 Mg Tablet 20 Mg PO 0300 Meloxicam 7.5 Mg Tablet 7.5 Mg PO 1500 Omeprazole 20 Mg Capsule.dr 20 Mg PO DAILY PRN Carbamazepine 200 Mg Tablet 400 Mg PO 1500 TAKES 2 (200 MG) TABLETS Amlodipine Besylate 5 Mg Tablet 5 Mg PO 0800 Lamotrigine 25 Mg Tablet 25 Mg PO 1500,0300 LAST FILLED #10 10-29-19 Proair Hfa (Albuterol Sulfate) 1 Puff Puff 2 Puff IH Q6H PRN 1 PUFF = 90 MCG Spiriva (Tiotropium [place]) 1 Inh Aerp 1 Cap IH 1500 Albuterol Sulfate 2.5 Mg/3 Ml Vial.neb 2.5 Mg NEB Q4H PRN Tegretol (Carbamazepine) 200 Mg Tablet 200 Mg PO 0800,2300,0300 Phenytoin Sodium Extended 100 Mg Capsule 100 Mg PO 0800,2300 Phenytoin Sodium Extended 100 Mg Capsule 200 Mg PO 1500 TAKES 2 (100 MG) CAPSULES Gabapentin 600 Mg Tablet 600 Mg PO 0800,1500 Gabapentin 300 Mg Capsule 300 Mg PO 2300 Lamotrigine 100 Mg Tablet 100 Mg PO 1500,2300 Instructions to patient/family Please see electronic discharge instructions given to patient. Clinical Quality Measures DVT/VTE Risk/Contraindication: Risk Factor Score Per Nursin RFS Level Per Nursing on Admit: 4+=Very High YUKI OWUSU MD Feb 20, 2019 11:26 POS
[2019-02-20] MEDS ORDERED: LEVO750T39 PO (11:34)
[2019-02-20] MEDS ORDERED: PRD10T PO (11:34)
--- NOTE | 2019-02-20 11:37 | Discharge Inst-Simple/Standard ---
Discharge Inst-Standard Discharge Medications New, Converted or Re-Newed RX: Transmitted to Pharmacy Patient Instructions/Follow Up Plan of Care/Instructions/FU: Please continue to take your medications as written. Please follow up with Dr Bernal and Dr Feng. Activity as Tolerated: Yes Discharge Diet: No Restrictions Return to The Hospital For: Chest pain, shortness of breath, fever, worsening cough, seziresu, if you feel you're getting worse. Planned Outpatient Orders/Ref. Pneu Vac Indicated: Yes YUKI OWUSU MD Feb 20, 2019 11:37 POS
--- NOTE | 2019-02-20 11:46 | Physical Therapy Daily Note ---
PT Daily Note-Current Subjective Pt. in bed, agrees to therapy. Mental Status Patient Orientation: Person, Place, Time, Situation Attachments: IV Transfers SCALE: Activities may be completed with or without assistive devices. 7-Ppxzurhzna-lhztsic completes the activity by him/herself with no assistance from a helper. 5-Set-up or Clean-up Assistance-helper sets up or cleans up; patient completes activity. [place] assists only prior to or following the activity. 4-Supervision or Touching Assistance-helper provides verbal cues and/or touching/steadying and/or contact guard assistance as patient completes activity. Assistance may be provided throughout the activity or intermittently. 3-Partial/Moderate Assistance-helper does LESS THAN HALF the effort. [place] lifts, holds or supports trunk or limbs, but provides less than half the effort. 2-Substantial/Maximal Assistance-helper does MORE THAN HALF the effort. [place] lifts or holds trunk or limbs and provides more than half the effort. 7-Uccodgfmv-oqbwcw does ALL the effort. Patient does none of the effort to complete the activity. Or, the assistance of 2 or more helpers is required for the patient to complete the activity. If activity was not attempted, code reason: 7-Patient Refused. 9-Not Applicable-not attempted and the patient did not perform the activity before the current illness, exacerbation or injury. 10-Not Attempted due to Environmental Limitations-(lack of equipment, weather restraints, etc.). 88-Not Attempted due to Medical Conditions or Safety Concerns. Sit to Lying (QC): 6 Sit to Stand (QC): 5 Gait Training Does the Patient Walk?: Yes Distance: 200 ft Walk 150 ft (QC): 4 Gait Persons Needed: 4 Gait Assistive Device: None Treatments gait training Assessment Current Status: Good Progress Pt. is (I) with all transfers. He requested to walk without AD today. Pt. had frequent lateral deviations in gait path, light CGA/SBA needed. Pt. preferred to walk alongside hallway rails. He became SOB during ambulation, required brief standing rest period. Pt. returned to room post session with O2 in situ, call light and all needs met. PT Jail Goals Jail Goals PT Manager Planning Goals Time Frame: Feb 26, 2019 Roll Left & Right (QC): 6 Sit to Lying (QC): 6 Lying-Sitting on Side/Bed(QC): 6 Sit to Stand (QC): 6 Chair/Yba-hg-Vpzax Xfer(QC): 6 Toilet Transfer (QC): 6 Car Transfer (QC): 6 Does the Patient Walk: Yes Walk 10 feet (QC): 6 Walk 50ft with 2 Turns (QC): 6 Walk 150 ft (QC): 6 Walking 10ft on Uneven Surface: 6 1 Step (curb) (QC): 6 4 Steps (QC): 6 12 Steps (QC): 9 Picking up an Object (QC): 9 Does the Pt use WC or Scooter?: No Type: N/A Type: N/A PT Plan Treatment/Plan Treatment Plan: Continue Plan of Care Treatment Plan: Bed Mobility, Education, Functional Activity Jessica, Functional Strength, Gait, Safety, Therapeutic Exercise, Transfers Treatment Duration: Feb 26, 2019 Frequency: 6 times per week Estimated Hrs Per Day: .25 hour per day Patient and/or Family Agrees t: Yes Time/GCodes Time In: 836 Time Out: 847 Total Billed Treatment Time: 11 Total Billed Treatment 1, GT 11' GUSTAVO UCEVAS PT Feb 20, 2019 11:46 POS
--- NOTE | 2019-02-20 12:08 | Diagnostic Imaging Report ---
Indication: Dyspnea, follow-up pneumonia. Comparison: 02/19/2019. Discussion: Two views of the chest were obtained. Infiltrates within the lung bases are slightly decreased. Right chest wall Icunjw-w-Tkex is stable. Stable normal heart size. No pleural fluid or pneumothorax. No osseous abnormality. Impression: 1. Decreasing bibasilar infiltrates. Dictated by: Dictated on workstation # [id number]
[2019-02-20] MEDS: rOPINIRole 1 MG (REQUIP) TABLET PO SCH (15:03)
[2019-02-20] MEDS: MELOXICAM 7.5 MG (MOBIC) TABLET PO SCH (15:05)
[2019-02-20 15:30] VITALS: BP 144/73
[2019-02-20 16:30] VITALS: BP 144/73
== END 2019-02-20 16:28 | disposition home or self-care (01) | DRG 194 ==
LOC: ER 12:52 → 4TH 14:30
PROVIDERS: ADMIT Family Medicine; ATTEND Family Medicine
PROC: 0HQ0XZZ Repair Scalp Skin, External Approach (ICD-10-PCS; principal; 2019-02-18)
DX: J18.9 Pneumonia, unspecified organism (principal); C34.90 Malignant neoplasm of unspecified part of unspecified bronchus or lung; C79.51 Secondary malignant neoplasm of bone; I38 Endocarditis, valve unspecified; S01.01XA Laceration without foreign body of scalp, initial encounter; G40.909 Epilepsy, unspecified, not intractable, without status epilepticus; J30.2 Other seasonal allergic rhinitis; J43.9 Emphysema, unspecified; G47.30 Sleep apnea, unspecified; E78.00 Pure hypercholesterolemia, unspecified; I10 Essential (primary) hypertension; G62.9 Polyneuropathy, unspecified; M19.90 Unspecified osteoarthritis, unspecified site; G14 Postpolio syndrome; W18.39XA Other fall on same level, initial encounter; Z85.118 Personal history of other malignant neoplasm of bronchus and lung; Z99.81 Dependence on supplemental oxygen; Z87.891 Personal history of nicotine dependence; Z79.51 Long term (current) use of inhaled steroids
CPT/HCPCS: 12002; 36415; 70450; 71045; 71046; 72125; 80048; 80053; 82962; 84484; 85007; 85025; 85027; 94640; 94760

== ENCOUNTER → 2019-03-15 | Outpatient (CLI) | payer MEDICARE, MEDICAID ==
[~2019-03-15] MED LIST changes: +BUDE10.2 INH; +CATHETER FLUSH 10 ML SYR IV PRN; +HOLD METFORMIN - RECEIVED CONTRAST 20 ML VIAL IV SCH; +IOHEXOL 350 MG/ML 100 ML (OMNIPAQUE 350) VIAL IV ONE; +LEVO750T39 PO; +MELA5CAP PO; +NS 100 ML (IVPB) BAG IV ONE; +ROPI0.5T2 PO
[2019-03-15 12:35] LABS: BUN/CREATININE RATIO 14; CREATININE SERUM 0.74 MG/DL (0.60-1.30); GFR ESTIMATED > 60
--- NOTE | 2019-03-15 14:16 | Diagnostic Imaging Report ---
CT CHEST W TECHNIQUE: Multiple contiguous axial images were obtained through the chest with the use of intravenous contrast. All CT scans use one or more of the following dose optimizing techniques: automated exposure control, MA and/or KvP adjustment based on a patient size and exam type, or iterative reconstruction. INDICATION: Chronic bronchitis, non-small cell lung cancer. COMPARISON: CT chest of 01/11/2019. FINDINGS: Lungs and airway: No endoluminal nodule within the trachea. Severe emphysema is unchanged. There are new scattered spiculated nodules within the right upper lobe. Additionally, there are numerous new centrilobular micronodules within the right upper, middle and lower lobes. Previously noted 5 mm left upper lobe pulmonary nodule has resolved. No pulmonary mass. Chronic atelectasis/scarring within the lung bases is similar. Pleura: No pleural effusion or pneumothorax. Heart and mediastinum: Visualized thyroid is normal. No supraclavicular or axillary lymphadenopathy. No mediastinal, hilar or juxtaphrenic lymphadenopathy. Stable cardiomegaly without pericardial effusion. Right IJ Port-A-Cath has tip in stable position. Dense calcifications of the aortic valve annulus and coronary arteries are unchanged. Upper abdomen: Cholecystectomy. No lymphadenopathy or concerning mass lesion. Musculoskeletal: No worrisome focal osseous lesions. Chronic Schmorl node within L1. IMPRESSION: 1. No features of lung cancer. The previously noted 5 mm left upper lobe pulmonary nodule has resolved. 2. Numerous new areas of cellular bronchiolitis are seen throughout both lower lobes but greater on the right. This distribution would favor an infectious bronchiolitis versus less likely aspiration. Dictated by: Dictated on workstation # [id number]
== END ==
LOC: RAD 11:52
PROVIDERS: ATTEND Nurse Practitioner Family
DX: J44.1 Chronic obstructive pulmonary disease with (acute) exacerbation (principal); J18.9 Pneumonia, unspecified organism; J96.20 Acute and chronic respiratory failure, unspecified whether with hypoxia or hypercapnia; C34.12 Malignant neoplasm of upper lobe, left bronchus or lung; F17.201 Nicotine dependence, unspecified, in remission
CPT/HCPCS: 36415; 71260; 82565; 84520

== ENCOUNTER 2019-04-04 05:30 | Inpatient (IN) | payer MEDICARE, MEDICAID ==
[~2019-04-04] VITALS: Ht 182.8 cm; Wt 90.1 kg
[2019-04-04] VITALS (7 sets, daily range): BP systolic 115–176; BP diastolic 66–105
[~2019-04-04 05:30] MED LIST changes: -CATHETER FLUSH 10 ML SYR IV PRN; -HOLD METFORMIN - RECEIVED CONTRAST 20 ML VIAL IV SCH; -IOHEXOL 350 MG/ML 100 ML (OMNIPAQUE 350) VIAL IV ONE; -NS 100 ML (IVPB) BAG IV ONE
[2019-04-04] MEDS ORDERED: DEXAMETHASONE 4 MG/ML SDV (DECADRON) ONE (05:41)
[2019-04-04] MEDS ORDERED: RT-ALBUTEROL SULF 2.5 MG/3 ML PRE-MIX VIAL ONE (05:41)
[2019-04-04] MEDS ORDERED: RT-ALBUTEROL/IPRATROPIUM 3 ML (DUONEB) VIAL ONE ×2 (05:41→13:10)
[2019-04-04] MEDS ORDERED: RT-ALBUTEROL SULF 2.5 MG/3 ML PRE-MIX VIAL INH STA (05:46)
[2019-04-04] MEDS ORDERED: methylPREDNISolone 125 MG (Solu-MEDROL) VIAL IV STA (05:46)
[2019-04-04] MEDS ORDERED: RT-ALBUTEROL/IPRATROPIUM 3 ML (DUONEB) VIAL INH ONE (06:00)
[2019-04-04] MEDS ORDERED: DEXAMETHASONE 4 MG/ML SDV (DECADRON) IH ONE (06:00)
[2019-04-04] MEDS ORDERED: ACETAMINOPHEN 500 MG TAB (TYLENOL) PO ONE (06:00)
[2019-04-04] MEDS ORDERED: NS IV ONE (06:00)
[2019-04-04] MEDS ORDERED: CEFEPIME INJECTION 2,000 MG in WATER (STERILE) FOR INJECTION 20 ML IV ONE (06:00)
[2019-04-04] MEDS ORDERED: VANCOMYCIN INJECTION 1,000 MG in NS (IVPB) 250 ML IV ONE (06:00)
[2019-04-04 06:04] LABS: BASOPHILS % (AUTO) 0 % (0-10); EOSINOPHILS % (AUTO) 0 % (0-10); HEMATOCRIT 38 % (40-54); HEMOGLOBIN 12.7 G/DL (13.3-17.7); LYMPHOCYTES # (AUTO) 1.4 X 10^3 (1.0-4.0); LYMPHOCYTES % (AUTO) 7 % (12-44); MEAN CORPUSCULAR HEMOGLOBIN 29 PG (25-34); MEAN CORPUSCULAR HGB CONC 34 G/DL (32-36); MEAN CORPUSCULAR VOLUME 86 FL (80-99); MONOCYTES # (AUTO) 1.4 X 10^3 (0.0-1.0); MONOCYTES % (AUTO) 7 % (0-12); NEUTROPHILS % (AUTO) 87 % (42-75); PLATELET COUNT 236 10^3/uL (130-400); RED CELL DISTRIBUTION WIDTH 14.5 % (10.0-14.5); WHITE BLOOD COUNT 20.8 10^3/uL (4.3-11.0)
[2019-04-04] MEDS ORDERED: HYDROCORTISONE 100 MG/2 ML (Solu-CORTEF) VIAL IV ONE (06:15)
[2019-04-04] MEDS ORDERED: ACETAMINOPHEN 650 MG SUPP (TYLENOL) PR ONE (06:15)
[2019-04-04 06:18] LABS: ABG OXYGEN SATURATION 89 % (94-100); ABG PCO2 50 MMHG (35-45); ABG PH 7.38 (7.37-7.43); ABG PO2 75 MMHG (79-93); ABG TCO2 29.7 MMOL/L (21.0-31.0)
[2019-04-04 06:24] LABS: ALLENS TEST POSITIVE; INSPIRED O2 50% BIPAP; PATIENT TEMP 38.8; VENTILATOR NO
[2019-04-04 06:25] LABS: ALANINE AMINOTRANSFERASE 15 U/L (0-55); ALBUMIN 4.4 GM/DL (3.2-4.5); ALKALINE PHOSPHATASE 154 U/L (40-136); BILIRUBIN,TOTAL 0.6 MG/DL (0.1-1.0); BUN/CREATININE RATIO 17; CALCIUM 9.2 MG/DL (8.5-10.1); CARBON DIOXIDE 23 MMOL/L (21-32); CHLORIDE 88 MMOL/L (98-107); CREATINE KINASE 45 U/L (30-200); CREATININE SERUM 0.72 MG/DL (0.60-1.30); GFR ESTIMATED > 60; GLUCOSE 154 MG/DL (70-105); MAGNESIUM 1.5 MG/DL (1.6-2.4); POTASSIUM 4.3 MMOL/L (3.6-5.0); SODIUM 126 MMOL/L (135-145); TOTAL PROTEIN 7.8 GM/DL (6.4-8.2)
[2019-04-04 06:32] LABS: CREATINE KINASE MB 1.9 NG/ML (<6.6)
--- NOTE | 2019-04-04 06:38 | ED General ---
General Chief Complaint: Respiratory Problems Stated Complaint: SOA Source of Information: Patient, Family Exam Limitations: Physical Impairments History of Present Illness Date Seen by Provider: Apr 04, 2019 Time Seen by Provider: 06:00 Initial Comments Here with report of 3 days of increasingly worse illness with much worse yesterday and this morning. Has long-standing history of COPD as well as lung cancer with metastasis and does have a port placed. Was tolerating his upper respiratory illness that he had but yesterday got worse. Did not eat or drink much yesterday and noted to have a fever of 102 today. Last chemotherapy was 2 weeks ago. Family reports that he has not had vomiting or diarrhea. Previously on steroids chronically but has been off that for the last week. Previous dosing was 10 mg a day. Family member reports that his O2 saturation was in the 80s at home and they were unable to get his blood pressure. Responded well to BiPAP. Not answering questions currently. History limited to family answers. Timing/Duration: 3-4 Days, Getting Worse Severity: Severe Associated Systoms: Fever/Chills; No Nausea/Vomiting; Shortness of Air, Weakness Allergies and Home Medications Allergies Coded Allergies: aspirin (Unverified Allergy, Mild, DOES NOT WORK WELL W/ OTHER MEDS, 10/05/18) ibuprofen (Unverified Allergy, Mild, 10/05/18) Home Medications Albuterol Sulfate 2.5 Mg/3 Ml Vial.neb, 2.5 MG NEB Q4H PRN for SHORTNESS OF BREATH, (Reported) Albuterol Sulfate 1 Puff Puff, 2 PUFF IH Q6H PRN for SHORTNESS OF BREATH, (Reported) 1 PUFF = 90 MCG Amlodipine Besylate 5 Mg Tablet, 5 MG PO 0800, (Reported) Atorvastatin Calcium 20 Mg Tablet, 20 MG PO 0300, (Reported) Budesonide/Formoterol Fumarate 10.2 Gm Hfa.aer.ad, 2 PUFF INH BID PRN for WHEN OUT OF ADVAIR, (Reported) Carbamazepine 200 Mg Tablet, 200 MG PO 0800,2300,0300, (Reported) Carbamazepine 200 Mg Tablet, 400 MG PO 1500, (Reported) TAKES 2 (200 MG) TABLETS Fluticasone/Salmeterol 12 Gm Hfa.aer.ad, 1 PUFF IH BID, (Reported) Gabapentin 300 Mg Capsule, 300 MG PO 2300, (Reported) Gabapentin 600 Mg Tablet, 600 MG PO 0800,1500, (Reported) Hydrocodone/Acetaminophen 1 Each Tablet, 1 TAB PO BID PRN for PAIN-MODERATE (5- 7), (Reported) Lamotrigine 100 Mg Tablet, 100 MG PO 1500,2300, (Reported) Lamotrigine 25 Mg Tablet, 25 MG PO 1500,0300, (Reported) LAST FILLED #10 01-26-19 Levofloxacin 750 Mg Tablet, 750 MG PO DAILY@1100 Prescribed by: YUKI MULTANI on 02/20/19 1134 Melatonin 5 Mg Capsule, 5 MG PO HS, (Reported) Meloxicam 7.5 Mg Tablet, 7.5 MG PO 1500, (Reported) Omeprazole 20 Mg Capsule.dr, 20 MG PO DAILY PRN for HEARTBURN, (Reported) Phenytoin Sodium Extended 100 Mg Capsule, 200 MG PO 1500, (Reported) TAKES 2 (100 MG) CAPSULES Phenytoin Sodium Extended 100 Mg Capsule, 100 MG PO 0800,2300, (Reported) Prednisone 10 Mg Tab, 10 MG PO DAILY Prescribed by: YUKI MULTANI on 02/20/19 1134 Ropinirole HCl 0.5 Mg Tablet, 0.5 MG PO 1500, (Reported) Tiotropium [place] 1 Inh Aerp, 1 CAP IH 1500, (Reported) Patient Home Medication List Home Medication List Reviewed: Yes Review of Systems Review of Systems Constitutional: see HPI, fever, weakness Respiratory: cough, short of breath, wheezing Gastrointestinal: No diarrhea, No vomiting Psychiatric/Neurological: See HPI Unable to complete review of systems due to altered mental status and medical condition. Past Phudzxn-Mduiav-Xgaerh Hx Past Med/Social Hx: Reviewed Nursing Past Med/Soc Hx Patient Social History Drug of Choice: HX OF RX DRUG ABUSE, CLAIMS NONE 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 Smoking Status: Former Smoker Type Used: Cigars, Cigarettes Former Smoker, Quit: May 01, 2017 2nd Hand Smoke Exposure: No Recent Hopitalizations: Yes Immunizations Up To Date Tetanus Booster (TDap): Less than 5yrs PED Vaccines UTD: Yes Date of Influenza Vaccine: Apr 21, 2018 Seasonal Allergies Seasonal Allergies: Yes Past Medical History Surgeries: Yes Eye Surgery, Gallbladder Respiratory: Yes Asthma, Pneumonia, Chronic Bronchitis, Sleep Apnea, COPD Currently Using CPAP: No Currently Using BIPAP: No Cardiac: Yes Heart Murmur, High Cholesterol, Hypertension, Valvular Heart Disease 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) Neuropathy, Seizure Disorder, Vertigo Reproductive Disorders: No Sexually Transmitted Disease: No HIV/AIDS: No Genitourinary: No Gastrointestinal: Yes (CHRONIC NAUSEA/VOMITING) Musculoskeletal: Yes (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 Physical Exam-Suspected Sepsis Physical Exam Vital Signs Vital Signs - First Documented 04/04/19 05:30 Temp 38.9 Pulse 105 Resp 24 B/P (MAP) 168/103 (124) Pulse Ox 90 O2 Delivery OxyMask O2 Flow Rate 10.00 Capillary Refill : Height, Weight, BMI Height: 6'0" Weight: 174lbs. 3.0oz. [id number]; 23.13 BMI Method:Stated General Appearance: Moderate Distress, Thin HEENT: PERRL/EOMI; No Moist Mucous Membranes Neck: Non Tender, Supple Respiratory: Accessory Muscle Use, Decreased Breath Sounds Cardiovascular: No Murmur, Tachycardia Gastrointestinal: Non Tender, Soft Back: No CVA Tenderness Extremity: Non Tender, No Pedal Edema Neurologic/Psychiatric: Motor Weakness (global), Other (altered mental status and not answering questions.) Skin: warm/dry, pallor Focused Exam Lactate Level 04/04/19 05:55: Lactic Acid Level 1.57 Lactic Acid Level Procedures/Interventions Date of ETT Placement: Mar 09, 2017 Time of ETT Placement: 1811 Suture Size: 5-0 Progress/Results/Core Measures Suspected Sepsis SIRS Temperature: Pulse: 105 Respiratory Rate: 26 Laboratory Tests 04/04/19 05:55: White Blood Count 20.8H Blood Pressure 176 /105 Mean: 04/04/19 05:55: Lactic Acid Level 1.57 Laboratory Tests 04/04/19 05:55: Creatinine 0.72, INR Comment 1.0, Platelet Count 236, Total Bilirubin 0.6 Results/Orders Lab Results Laboratory Tests Test 04/04/19 05:55 04/04/19 06:10 04/04/19 06:35 Range/Units White Blood Count 20.8 H 4.3-11.0 10^3/uL Red Blood Count 4.39 4.35-5.85 10^6/uL Hemoglobin 12.7 L 13.3-17.7 G/DL Hematocrit 38 L 40-54 % Mean Corpuscular Volume 86 80-99 FL Mean Corpuscular Hemoglobin 29 25-34 PG Mean Corpuscular Hemoglobin Concent 34 32-36 G/DL Red Cell Distribution Width 14.5 10.0-14.5 % Platelet Count 236 130-400 10^3/uL Mean Platelet Volume 9.0 7.4-10.4 FL Neutrophils (%) (Auto) 87 H 42-75 % Lymphocytes (%) (Auto) 7 L 12-44 % Monocytes (%) (Auto) 7 0-12 % Eosinophils (%) (Auto) 0 0-10 % Basophils (%) (Auto) 0 0-10 % Neutrophils # (Auto) 18.0 H 1.8-7.8 X 10^3 Lymphocytes # (Auto) 1.4 1.0-4.0 X 10^3 Monocytes # (Auto) 1.4 H 0.0-1.0 X 10^3 Eosinophils # (Auto) 0.0 0.0-0.3 10^3/uL Basophils # (Auto) 0.0 0.0-0.1 10^3/uL Neutrophils % (Manual) 90 % Lymphocytes % (Manual) 5 % Monocytes % (Manual) 5 % Band Neutrophils % Prothrombin Time 14.0 12.2-14.7 SEC INR Comment 1.0 0.8-1.4 Activated Partial Thromboplast Time 40 H 24-35 SEC Sodium Level 126 L 135-145 MMOL/L Potassium Level 4.3 3.6-5.0 MMOL/L Chloride Level 88 L 98-107 MMOL/L Carbon Dioxide Level 23 21-32 MMOL/L Anion Gap 15 H 5-14 MMOL/L Blood Urea Nitrogen 12 7-18 MG/DL Creatinine 0.72 0.60-1.30 MG/DL Estimat Glomerular Filtration Rate > 60 BUN/Creatinine Ratio 17 Glucose Level 154 H 70-105 MG/DL Lactic Acid Level 1.57 0.50-2.00 MMOL/L Calcium Level 9.2 8.5-10.1 MG/DL Corrected Calcium 8.9 8.5-10.1 MG/DL Magnesium Level 1.5 L 1.6-2.4 MG/DL Total Bilirubin 0.6 0.1-1.0 MG/DL Aspartate Amino Transf (AST/SGOT) 17 5-34 U/L Alanine Aminotransferase (ALT/SGPT) 15 0-55 U/L Alkaline Phosphatase 154 H 40-136 U/L Total Creatine Kinase 45 30-200 U/L Creatine Kinase MB 1.9 <6.6 NG/ML Myoglobin 46.0 10.0-92.0 NG/ML Troponin I < 0.028 <0.028 NG/ML B-Type Natriuretic Peptide 145.1 H <100.0 PG/ML Total Protein 7.8 6.4-8.2 GM/DL Albumin 4.4 3.2-4.5 GM/DL Serum Alcohol < 10 <10 MG/DL Blood Gas Puncture Site RIGHT RADIAL Blood Gas Patient Temperature 38.8 Arterial Blood pH 7.38 7.37-7.43 Arterial Blood Partial Pressure CO2 50 H 35-45 MMHG Arterial Blood Partial Pressure O2 75 L 79-93 MMHG Arterial Blood HCO3 28 H 23-27 MMOL/L Arterial Blood Total CO2 29.7 21.0-31.0 MMOL/L Arterial Blood Oxygen Saturation 89 L 94-100 % Arterial Blood Base Excess 4.0 H -2.5-2.5 MMOL/L Johan Test POSITIVE Blood Gas Ventilator Setting NO Blood Gas Inspired Oxygen 50% BIPAP Urine Color YELLOW Urine Clarity SL CLOUDY Urine pH 6.0 5-9 Urine Specific Brush 1.020 1.016-1.022 Urine Protein NEGATIVE NEGATIVE Urine Glucose (UA) NEGATIVE NEGATIVE Urine Ketones 1+ H NEGATIVE Urine Nitrite NEGATIVE NEGATIVE Urine Bilirubin NEGATIVE NEGATIVE Urine Urobilinogen 0.2 < = 1.0 MG/DL Urine Leukocyte Esterase NEGATIVE NEGATIVE Urine RBC (Auto) NEGATIVE NEGATIVE Urine RBC NONE /HPF Urine WBC NONE /HPF Urine Squamous Epithelial Cells RARE /HPF Urine Crystals NONE /LPF Urine Leucine Crystals /LPF Urine Bacteria TRACE /HPF Urine Casts NONE /LPF Urine Mucus SMALL H /LPF Urine Culture Indicated CULTURE PENDING Urine Opiates Screen POSITIVE H NEGATIVE Urine Oxycodone Screen NEGATIVE NEGATIVE Urine Methadone Screen NEGATIVE NEGATIVE Urine Propoxyphene Screen NEGATIVE NEGATIVE Urine Barbiturates Screen POSITIVE H NEGATIVE Ur Tricyclic Antidepressants Screen NEGATIVE NEGATIVE Urine Phencyclidine Screen NEGATIVE NEGATIVE Urine Amphetamines Screen NEGATIVE NEGATIVE Urine Methamphetamines Screen NEGATIVE NEGATIVE Urine Benzodiazepines Screen NEGATIVE NEGATIVE Urine Cocaine Screen NEGATIVE NEGATIVE Urine Cannabinoids Screen NEGATIVE NEGATIVE Micro Results Microbiology 04/04/19 Influenza Types A,B Antigen (VY) - Final, Complete Medications Given in ED Current Medications Medications Dose Ordered Sig/Porfriio Route Start Time Stop Time Status Last Admin Dose Admin Acetaminophen 1,[address] 04/04/19 06:15 04/04/19 06:16 DC 04/04/19 06:32 1,300 MG Albuterol/ Ipratropium 3 ml ONCE ONCE INH 04/04/19 06:00 04/04/19 06:01 DC 04/04/19 06:16 3 ML Cefepime HCl 2000 mg/Sterile Water 20 ml @ 240 mls/hr ONCE ONCE IV 04/04/19 06:00 04/04/19 06:04 DC 04/04/19 06:31 240 MLS/HR Dexamethasone Sodium Phosphate 30 mg ONCE ONCE IH 04/04/19 06:00 04/04/19 06:01 DC 04/04/19 06:17 30 MG Hydrocortisone Sodium Succinate 100 mg ONCE ONCE IV 04/04/19 06:15 04/04/19 06:16 DC 04/04/19 06:33 100 MG Sodium Chloride 2,370.3 ml @ 2,370.3 mls/hr ONCE ONCE IV 04/04/19 06:00 04/04/19 06:59 DC 04/04/19 06:33 2,370.3 MLS/HR Vancomycin HCl 1000 mg/Sodium Chloride 250 ml @ 250 mls/hr ONCE ONCE IV 04/04/19 06:00 04/04/19 06:59 DC 04/04/19 06:37 250 MLS/HR Vital Signs/I&O 04/04/19 04/04/19 04/04/19 04/04/19 05:30 05:30 05:55 06:32 Temp 38.9 38.9 Pulse 105 105 Resp 24 26 B/P (MAP) 168/103 (124) Pulse Ox 90 90 95 O2 Delivery OxyMask OxyMask O2 Flow Rate 10.00 10.00 50.00 04/04/19 04/04/19 04/04/19 04/04/19 09:16 09:42 09:47 09:53 Temp 37.7 Pulse 98 89 88 Resp 30 20 20 B/P (MAP) 131/89 118/75 Pulse Ox 97 94 94 93 O2 Delivery Nasal Cannula Nasal Cannula O2 Flow Rate 30.00 4.00 4.00 04/04/19 04/04/19 04/04/19 04/04/19 10:21 11:18 13:00 13:21 Temp 37.4 Pulse 83 72 88 73 Resp 20 21 B/P (MAP) 115/68 (84) Pulse Ox 95 91 O2 Delivery Nasal Cannula O2 Flow Rate 4.00 40.00 Capillary Refill : Progress Note : Progress Note Initially briefly seen with resuscitation measures initiated by Dr. Vasquez and care assumed by me. I have seen and evaluated the patient. Sepsis protocol initiated. Initiated on BiPAP and continuous hour-long nebulizer treatment initiated. Solu-Medrol 125 mg IV given. We went ahead and gave hydrocortisone 100 mg IV due to history of steroid dependence and has been off steroids. Normal saline 30 mL/kg bolus ordered. We will check influenza, EKG and troponin. He is doing better on BiPAP with O2 saturations improved. Tylenol ordered by mouth but concerns about patient's ability to swallow also changed to rectal Tylenol. Monitor patient. 0739: Mena catheter is placed and patient has been initiated on cefepime and vancomycin. Lactic acid negative. High volume fluid resuscitation initiated. I discussed the case with Dr. Multani, on-call for Dr. Genao and she accepts patient for admission, inpatient status. Patient is stable for medical or on telemetry. We will continue BiPAP. I did discuss the case with Dr. Bernal and he accepts patient in consult. Findings and concerns discussed with patient and family who agree to plan. 0801: Patient has woke up more now. He is requesting a drink of water and is concerned about the Mena catheter. He would also like to take his 8:00 medicines that he has brought with him. We will go ahead and let him do that and get him admitted upstairs. Patient and family agree with plan. Patient does have findings of sepsis and did receive the 30 mL/kg bolus of fluids. Overall much improved at time of transfer to floor. 0830: I attest a focused exam at this time. ECG Initial ECG Impression Date: Apr 04, 2019 Initial ECG Impression Time: 06:37 Initial ECG Rate: 111 Initial ECG Rhythm: S.Tach Comment Sinus tachycardia with PVC. Similar to previous of 10/05/18. Normal axis. No evidence of ST elevation AR. Interpreted by me. Diagnostic Imaging Diagonstic Imaging: Xray Plain Films/CT/US/NM/MRI: chest Comments [facility]. [place], [place] NAME: CR UQIJANO [facility] REC#: [id number] PT STATUS: REG ER : 1955 PHYSICIAN: CHUNG VASQUEZ DO ADMIT DATE: 04/04/19/ER Signed Date of Exam:04/04/19 CHEST 1 VIEW, AP/PA ONLY INDICATION: Cough and shortness of breath. Comparison is made with prior examination from 02/20/2019. FINDINGS: Heart size is normal. There is mild venous congestion. There is patchy right basilar infiltrate. There is no pleural effusion or pneumothorax. Mediastinum is unremarkable. Ntoflf-f-Tyll catheter overlies the right hemithorax. IMPRESSION: Patchy right base infiltrate. Mild central pulmonary venous congestion Dictated by: Dictated on workstation # [id number] Dict: 04/04/19 0610 Trans: 04/04/19 0636 ELIOT [id number] Interpreted by: LIZY GO MD Electronically signed by: LIZY GO MD 04/04/19 0636 Departure Communication (Admissions) Time/Spoke to Admitting Phy: 07:34 Time/Spoke to Consulting Phy: 07:39 Impression Primary Impression: Right lower lobe pneumonia Qualified Codes: J18.1 - Lobar pneumonia, unspecified organism Additional Impressions: COPD with acute exacerbation Lung cancer metastatic to bone Disposition: ADMITTED INPATIENT Condition: Stable Admissions Decision to Admit Reason: Admit from ER (General) Decision to Admit/Date: Apr 04, 2019 Time/Decision to Admit Time: 07:34 Departure-Patient Inst. Referrals: AMANDEEP GENAO DO (PCP/Family) Primary Care Physician VANESSA GUTHRIE MD Apr 04, 2019 06:38
[2019-04-04 06:54] LABS: BILIRUBIN,URINE NEGATIVE (NEGATIVE); CLARITY,URINE SL CLOUDY; COLOR,URINE YELLOW; GLUCOSE, URINE (UA) NEGATIVE (NEGATIVE); KETONES,URINE 1+ (NEGATIVE); LEUKOCYTE ESTERASE ,URINE NEGATIVE (NEGATIVE); NITRITE,URINE NEGATIVE (NEGATIVE); PROTEIN,URINE NEGATIVE (NEGATIVE)
[2019-04-04 07:12] LABS: BACTERIA,URINE TRACE /HPF; SQUAMOUS EPITHELIAL CELL,UR RARE /HPF
[2019-04-04 07:13] LABS: AMPHETAMINE SCREEN, URINE NEGATIVE (NEGATIVE); BARBITURATE SCREEN URINE POSITIVE (NEGATIVE); BENZODIAZEPINES SCREEN URINE NEGATIVE (NEGATIVE); CANNABINOID SCREEN, URINE NEGATIVE (NEGATIVE); COCAINE SCREEN URINE NEGATIVE (NEGATIVE); METHADONE STAT NEGATIVE (NEGATIVE); METHAMPHETAMINE SCREEN URINE S NEGATIVE (NEGATIVE); OPIATE SCREEN URINE POSITIVE (NEGATIVE); OXYCODONE STAT NEGATIVE (NEGATIVE); PROPOXYPHENE STAT NEGATIVE (NEGATIVE); TRICYCLIC ANTIDEPRESSANTS SCRE NEGATIVE (NEGATIVE)
[2019-04-04 07:19] LABS: LYMPHOCYTES % (MANUAL) 5 %; MONOCYTES % (MANUAL) 5 %; NEUTROPHILS % (MANUAL) 90 %
[2019-04-04] MEDS ORDERED: CATHETER FLUSH 10 ML SYR IV PRN (10:00)
[2019-04-04] MEDS ORDERED: ACETAMINOPHEN 650 MG SUPP (TYLENOL) PR PRN (10:00)
[2019-04-04] MEDS: LACTATED RINGERS 1,000 ML IV SCH ×3 (10:26→18:48)
[2019-04-04] MEDS ORDERED: WATER (STERILE) FOR INJECTION 10 ML ONE (12:20)
[2019-04-04] MEDS: CEFEPIME 1,000 MG/SWFI 10 ML IV PUSH IV SCH ×6 (12:23→23:53)
[2019-04-04] MEDS: methylPREDNISolone 40 MG/ML (Solu-MEDROL) VIAL IV SCH ×3 (12:24→23:53)
--- NOTE | 2019-04-04 13:01 | History & Physical-Hospitalist ---
History of Present Illness HPI/Chief Complaint Pt is a 63yoCM with a PMH of lung cancer with mets (last chemo 2 weeks ago), COPD who presented to the ER due to SOB. He is unable to provide me much history other than that he wasn't feeling well for a few days. Per ER notes he had been sick for 3 days and got much worse yesterday and this morning prompting him to seek care in the ER. Family is not currently at bedside to supplement this history. He agrees when asked if he had a fever by saying "apparently" so I am unsure if this is true. ER notes he was febrile to 102 by family. He was in significant distress on arrival and placed on BiPAP and responded well. He is now off BiPAP and is more alert and nearer his baseline. Source: patient Date Seen 04/04/19 Time Seen by a Provider: 12:54 Attending Physician Micky Genao DO PCP Micky Genao DO Referring Physician Date of Admission Apr 04, 2019 at 07:34 Home Medications & Allergies Home Medications Reviewed patient Home Medication Reconciliation performed by pharmacy medication reconciliations it field technician and/or nursing. Patients Allergies have been reviewed. Allergies Allergies Coded Allergies aspirin (Unverified Allergy, Mild, DOES NOT WORK WELL W/ OTHER MEDS, 10/05/18) ibuprofen (Unverified Allergy, Mild, 10/05/18) Past Ufcspcv-Erxjqj-Oybhjq Hx Past Med/Social Hx: Reviewed Nursing Past Med/Soc Hx Patient Social History Marrital Status: Alcohol Use: Past History Recreational Drug Use: Yes (not current, 15 years ago-ETOH and PO drugs) Drug of Choice: HX OF RX DRUG ABUSE, CLAIMS NONE 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 Smoking Status: Former Smoker Former Smoker, Quit: May 01, 2017 Type Used: Cigars, Cigarettes 2nd Hand Smoke Exposure: No Physical Abuse Screen: No Sexual Abuse: No Recent Foreign Travel: No Contact w/other who traveled: No Recent Hopitalizations: No Recent Infectious Disease Expo: No Immunizations Up To Date Tetanus Booster (TDap): Less than 5yrs Pediatric: Yes Date of Influenza Vaccine: Apr 21, 2018 Seasonal Allergies Seasonal Allergies: Yes Past Medical History Surgeries: Eye Surgery, Gallbladder Respiratory: COPD, Emphysema, Pneumonia Currently Using CPAP: No Currently Using BIPAP: No Cardiac: Heart Murmur, High Cholesterol, Hypertension, Valvular Heart Disease Neurological: Neuropathy, Seizure Disorder, Vertigo Reproductive: No Sexually Transmitted Disease: No HIV/AIDS: No Musculoskeletal: Arthritis, Fractures Loss of Vision: Denies Hearing Impairment: Denies Cancer: Bone, Lung Did You Recieve Any Treatments: Yes What Type of Treatment Did You: Chemotherapy History of Blood Disorders: No Adverse Reaction to Blood [place]: No Family History Reviewed Nursing Family Hx Diabetes mellitus 19 MOTHER Hypercholesterolemia 19 FATHER Hypertension 19 FATHER Heart Disease Limited to records review due to clinical condition. Review of Systems ROS-Unable to Obtain: limited per HPI Constitutional: fever Respiratory: cough, dyspnea on exertion, short of breath Physical Exam Physical Exam Vital Signs Vital Signs - First Documented 04/04/19 05:30 Temp 38.9 Pulse 105 Resp 24 B/P (MAP) 168/103 (124) Pulse Ox 90 O2 Delivery OxyMask O2 Flow Rate 10.00 Capillary Refill : Less Than 3 Seconds Height, Weight, BMI Height: 6'0" Weight: 174lbs. 3.0oz. 79.352606le; 26.66 BMI Method:Stated General Appearance: No Apparent Distress, Chronically ill HEENT: PERRL/EOMI, Moist Mucous Membranes; No Scleral Icterus (L), No Scleral Icterus (R) Neck: Normal Inspection, Supple; No Thyromegaly Respiratory: No Accessory Muscle Use, No Respiratory Distress, Wheezing Cardiovascular: Regular Rate, Rhythm, No Murmur Gastrointestinal: Normal Bowel Sounds, Non Tender, Soft Extremity: No Calf Tenderness, No Pedal Edema Neurologic/Psychiatric: Alert, Oriented x3; No Aphasia, No Facial Droop Skin: Normal Color, Warm/Dry Results Results/Procedures Labs Laboratory Tests 04/04/19 05:55 Patient resulted labs reviewed. Imaging: Reviewed Imaging Report Imaging Date of Exam:04/04/19 CHEST 1 VIEW, AP/PA ONLY INDICATION: Cough and shortness of breath. Comparison is made with prior examination from 02/20/2019. FINDINGS: Heart size is normal. There is mild venous congestion. There is patchy right basilar infiltrate. There is no pleural effusion or pneumothorax. Mediastinum is unremarkable. Mrfnut-a-Bdjb catheter overlies the right hemithorax. IMPRESSION: Patchy right base infiltrate. Mild central pulmonary venous congestion Assessment/Plan Admission Diagnosis Acute Respiratory Failure Admission Status: Inpatient Order (span 2 midnights) Reason for Inpatient Admission: IV abx Assessment and Plan Acute Respiratory Failure Sepsis due to CAP COPD Metastatic Lung Cancer Responded well to BiPAP and will trial off of it Continue Steroids (apparently had missed doses of his daily prednisone) Pulm consulted, appreciate recs Continue Cefepime and Vanc Await cultures Lactic normal Flu Negative Diagnosis/Problems Diagnosis/Problems (1) Sepsis Status: Acute Qualifiers: Sepsis type: sepsis due to unspecified organism Sepsis acute organ dysfunction status: without acute organ dysfunction Qualified Codes: A41.9 - Sepsis, unspecified organism (2) Lung cancer metastatic to bone Status: Chronic (3) COPD with acute exacerbation Status: Acute (4) Right lower lobe pneumonia Status: Acute Qualifiers: Pneumonia type: due to unspecified organism Qualified Codes: J18.1 - Lobar pneumonia, unspecified organism (5) Seizure disorder Status: Chronic (6) Altered mental status Status: Acute Qualifiers: Altered mental status type: somnolence Qualified Codes: R40.0 - Somnolence Copy Copies To 1: MICKY GENAO KATELYN M MD Apr 04, 2019 13:01
[2019-04-04] MEDS ORDERED: RT-ALBUTEROL/IPRATROPIUM 3 ML (DUONEB) VIAL INH PRN ×2 (13:15→14:15)
[2019-04-04] MEDS: VANCOMYCIN 1500 MG/NS 500 ML IVPB IV SCH ×2 (15:40)
[2019-04-04] MEDS: carBAMazepine 200 MG (TEGretol) TAB PO SCH ×2 (15:41→23:47)
[2019-04-04] MEDS: lamoTRIgine 25 MG (LaMICtal) TAB PO SCH (15:41)
[2019-04-04] MEDS: MELOXICAM 7.5 MG (MOBIC) TABLET PO SCH (15:41)
[2019-04-04] MEDS: PHENYTOIN 100 MG (DILANTIN) CAP PO SCH ×2 (15:42→23:48)
[2019-04-04] MEDS: rOPINIRole 0.25 MG (REQUIP) TAB PO SCH (15:46)
[2019-04-04] MEDS: CATHETER FLUSH 10 ML SYR IV SCH ×2 (15:48→21:12)
[2019-04-04] MEDS: RT-ADVAIR HFA 115/21 MCG PER PUFF IH SCH (19:21)
[2019-04-04] MEDS ORDERED: POLYETHYLENE GLYCOL 17 GM (MIRALAX) PACK PO SCH (21:00)
[2019-04-04] MEDS: MELATONIN 3 MG TABLET PO SCH (21:12)
[2019-04-04] MEDS: RT-ALBUTEROL/IPRATROPIUM 3 ML (DUONEB) VIAL INH SCH (23:10)
[2019-04-04] MEDS: GABAPENTIN 300 MG (NEURONTIN) CAP PO SCH (23:47)
[2019-04-05] VITALS (7 sets, daily range): BP systolic 156–191; BP diastolic 70–94
[2019-04-05] MEDS: VANCOMYCIN 1500 MG/NS 500 ML IVPB IV SCH ×6 (00:35→23:58)
[2019-04-05] MEDS: lamoTRIgine 25 MG (LaMICtal) TAB PO SCH ×2 (02:41→14:34)
[2019-04-05] MEDS: RT-ALBUTEROL/IPRATROPIUM 3 ML (DUONEB) VIAL INH SCH ×6 (02:42→21:35)
[2019-04-05] MEDS: carBAMazepine 200 MG (TEGretol) TAB PO SCH ×4 (02:45→23:54)
[2019-04-05] MEDS: LACTATED RINGERS 1,000 ML IV SCH ×4 (02:52→23:50)
[2019-04-05] MEDS: CEFEPIME 1,000 MG/SWFI 10 ML IV PUSH IV SCH ×8 (05:37→23:51)
[2019-04-05] MEDS: methylPREDNISolone 40 MG/ML (Solu-MEDROL) VIAL IV SCH ×4 (05:37→23:52)
[2019-04-05] MEDS: CATHETER FLUSH 10 ML SYR IV SCH ×3 (05:38→22:36)
[2019-04-05 05:50] LABS: BASOPHILS % (AUTO) 0 % (0-10); EOSINOPHILS % (AUTO) 0 % (0-10); HEMATOCRIT 30 % (40-54); LYMPHOCYTES # (AUTO) 0.6 X 10^3 (1.0-4.0); LYMPHOCYTES % (AUTO) 4 % (12-44); MEAN CORPUSCULAR HEMOGLOBIN 29 PG (25-34); MEAN CORPUSCULAR HGB CONC 33 G/DL (32-36); MEAN CORPUSCULAR VOLUME 88 FL (80-99); MONOCYTES % (AUTO) 7 % (0-12); NEUTROPHILS # (AUTO) 11.6 X 10^3 (1.8-7.8); NEUTROPHILS % (AUTO) 88 % (42-75); PLATELET COUNT 180 10^3/uL (130-400); RED CELL DISTRIBUTION WIDTH 14.9 % (10.0-14.5); WHITE BLOOD COUNT 13.1 10^3/uL (4.3-11.0)
[2019-04-05 06:09] LABS: ALANINE AMINOTRANSFERASE 12 U/L (0-55); ALBUMIN 3.8 GM/DL (3.2-4.5); ALKALINE PHOSPHATASE 117 U/L (40-136); BILIRUBIN,TOTAL 0.2 MG/DL (0.1-1.0); BUN/CREATININE RATIO 13; CARBON DIOXIDE 24 MMOL/L (21-32); CHLORIDE 101 MMOL/L (98-107); CREATININE SERUM 0.67 MG/DL (0.60-1.30); GFR ESTIMATED > 60; GLUCOSE 147 MG/DL (70-105); SODIUM 134 MMOL/L (135-145); TOTAL PROTEIN 6.4 GM/DL (6.4-8.2)
[2019-04-05] MEDS: PHENYTOIN 100 MG (DILANTIN) CAP PO SCH ×3 (08:20→23:54)
--- NOTE | 2019-04-05 08:50 | History & Physical ---
History of Present Illness History of Present Illness Reason for visit/HPI Patient came to emergency room area At 3 days of illness getting worse. Running an elevated temperature 102 Not eating or drinking. Pulse ox in the 80s at home. Patient has a history of COPD, lung cancer with metastasis. Chest x-ray shows pneumonia. Patient admitted Date of Admission Apr 04, 2019 at 07:34 Time Seen by a Provider: 08:46 I consulted on this patient on 04/05/19 08:46 Attending Physician Micky Genao DO Admitting Physician Micky Genao DO Consult Allergies and Home Medications Allergies Coded Allergies: aspirin (Unverified Allergy, Mild, DOES NOT WORK WELL W/ OTHER MEDS, 10/05/18) ibuprofen (Unverified Allergy, Mild, 10/05/18) Home Medications Albuterol Sulfate 2.5 Mg/3 Ml Vial.neb, 2.5 MG NEB Q4H PRN for SHORTNESS OF BREATH, (Reported) Albuterol Sulfate 1 Puff Puff, 2 PUFF IH Q6H PRN for SHORTNESS OF BREATH, (Reported) 1 PUFF = 90 MCG Amlodipine Besylate 5 Mg Tablet, 5 MG PO 0800, (Reported) Atorvastatin Calcium 20 Mg Tablet, 20 MG PO 0300, (Reported) Budesonide/Formoterol Fumarate 10.2 Gm Hfa.aer.ad, 2 PUFF INH BID PRN for WHEN OUT OF ADVAIR, (Reported) Carbamazepine 200 Mg Tablet, 200 MG PO 0800,2300,0300, (Reported) Carbamazepine 200 Mg Tablet, 400 MG PO 1500, (Reported) TAKES 2 (200 MG) TABLETS Fluticasone/Salmeterol 12 Gm Hfa.aer.ad, 1 PUFF IH BID, (Reported) Gabapentin 300 Mg Capsule, 300 MG PO 2300, (Reported) Gabapentin 600 Mg Tablet, 600 MG PO 0800,1500, (Reported) Hydrocodone/Acetaminophen 1 Each Tablet, 1 TAB PO BID PRN for PAIN-MODERATE (5- 7), (Reported) Lamotrigine 100 Mg Tablet, 100 MG PO 1500,2300, (Reported) Lamotrigine 25 Mg Tablet, 25 MG PO 1500,0300, (Reported) LAST FILLED #10 01-26-19 Levofloxacin 750 Mg Tablet, 750 MG PO DAILY@1100 Prescribed by: YUKI OWUSU on 02/20/19 1134 Melatonin 5 Mg Capsule, 5 MG PO HS, (Reported) Meloxicam 7.5 Mg Tablet, 7.5 MG PO 1500, (Reported) Omeprazole 20 Mg Capsule.dr, 20 MG PO DAILY PRN for HEARTBURN, (Reported) Phenytoin Sodium Extended 100 Mg Capsule, 200 MG PO 1500, (Reported) TAKES 2 (100 MG) CAPSULES Phenytoin Sodium Extended 100 Mg Capsule, 100 MG PO 0800,2300, (Reported) Prednisone 10 Mg Tab, 10 MG PO DAILY Prescribed by: YUKI OWUSU on 02/20/19 1134 Ropinirole HCl 0.5 Mg Tablet, 0.5 MG PO 1500, (Reported) Tiotropium [place] 1 Inh Aerp, 1 CAP IH 1500, (Reported) Patient Home Medication List Home Medication List Reviewed: Yes Past Syvskse-Tekvzc-Xcktwf Hx Past Med/Social Hx: Reviewed Nursing Past Med/Soc Hx Patient Social History Marrital Status: Alcohol Use: Past History Recreational Drug Use: Yes (not current, 15 years ago-ETOH and PO drugs) Drug of Choice: HX OF RX DRUG ABUSE, CLAIMS NONE 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 Smoking Status: Former Smoker Former Smoker, Quit: May 01, 2017 Type Used: Cigars, Cigarettes 2nd Hand Smoke Exposure: No Physical Abuse Screen: No Sexual Abuse: No Recent Foreign Travel: No Contact w/other who traveled: No Recent Hopitalizations: No Recent Infectious Disease Expo: No Immunizations Up To Date Tetanus Booster (TDap): Less than 5yrs Pediatric: Yes Date of Influenza Vaccine: Apr 21, 2018 Seasonal Allergies Seasonal Allergies: Yes Past Medical History Surgeries: Eye Surgery, Gallbladder Respiratory: COPD, Emphysema, Pneumonia Currently Using CPAP: No Currently Using BIPAP: No Cardiac: Heart Murmur, High Cholesterol, Hypertension, Valvular Heart Disease Neurological: Neuropathy, Seizure Disorder, Vertigo Reproductive: No Sexually Transmitted Disease: No HIV/AIDS: No Musculoskeletal: Arthritis, Fractures Loss of Vision: Denies Hearing Impairment: Denies Cancer: Bone, Lung Did You Recieve Any Treatments: Yes What Type of Treatment Did You: Chemotherapy History of Blood Disorders: No Adverse Reaction to Blood [place]: No Family History Reviewed Nursing Family Hx Diabetes mellitus 19 MOTHER Hypercholesterolemia 19 FATHER Hypertension 19 FATHER Heart Disease Limited to records review due to clinical condition. Review of Systems Constitutional: chills, fever, weakness EENTM: no symptoms reported Respiratory: cough, short of breath Cardiovascular: no symptoms reported Genitourinary: no symptoms reported Physical Exam Vital Signs Vital Signs - First Documented 04/04/19 05:30 Temp 38.9 Pulse 105 Resp 24 B/P (MAP) 168/103 (124) Pulse Ox 90 O2 Delivery OxyMask O2 Flow Rate 10.00 Capillary Refill : Less Than 3 Seconds Height, Weight, BMI Height: 6'0" Weight: 174lbs. 3.0oz. [id number]; 26.66 BMI Method:Stated General Appearance: No Apparent Distress, Thin Eyes: Bilateral Eye Normal Inspection HEENT: TMs Normal Neck: Normal Inspection Respiratory: No Accessory Muscle Use, No Respiratory Distress, Decreased Breath Sounds, Wheezing Cardiovascular: Regular Rate, Rhythm Gastrointestinal: Non Tender, Soft Assessment/Plan Assessment and Plan Right lower lobe pneumonia. COPD. Lung cancer with metastasis. Seizure. Febrile Admission Diagnosis Admission Status: Inpatient Order (span 2 midnights) Reason for Inpatient Admission: Febrile. Pneumonia. Short of breath. Lung cancer. COPD MICKY GENAO DO Apr 05, 2019 08:50
[2019-04-05] MEDS: RT-ADVAIR HFA 115/21 MCG PER PUFF IH SCH ×2 (11:27→18:12)
[2019-04-05] MEDS: UMECLIDINIUM BROMIDE (INCRUSE ELLIPTA) 7'S IH SCH (11:28)
[2019-04-05] MEDS ORDERED: TROUGH ORDER-PHARMACY XX NR (12:00)
[2019-04-05] MEDS: rOPINIRole 0.25 MG (REQUIP) TAB PO SCH (14:34)
[2019-04-05] MEDS: MELOXICAM 7.5 MG (MOBIC) TABLET PO SCH (14:35)
--- NOTE | 2019-04-05 15:53 | Pulmonary Consultation ---
History of Present Illness History of Present Illness Date of Admission Allergies and Home Medications Allergies Coded Allergies: aspirin (Unverified Allergy, Mild, DOES NOT WORK WELL W/ OTHER MEDS, ) ibuprofen (Unverified Allergy, Mild, 10/05/18) Home Medications Albuterol Sulfate 2.5 Mg/3 Ml Vial.neb, 2.5 MG NEB Q4H PRN for SHORTNESS OF BREATH, (Reported) Albuterol Sulfate 1 Puff Puff, 2 PUFF IH Q6H PRN for SHORTNESS OF BREATH, (Reported) 1 PUFF = 90 MCG Amlodipine Besylate 5 Mg Tablet, 5 MG PO 0800, (Reported) Atorvastatin Calcium 20 Mg Tablet, 20 MG PO 0300, (Reported) Budesonide/Formoterol Fumarate 10.2 Gm Hfa.aer.ad, 2 PUFF INH BID PRN for WHEN OUT OF ADVAIR, (Reported) Carbamazepine 200 Mg Tablet, 200 MG PO 0800,2300,0300, (Reported) Carbamazepine 200 Mg Tablet, 400 MG PO 1500, (Reported) TAKES 2 (200 MG) TABLETS Fluticasone/Salmeterol 12 Gm Hfa.aer.ad, 1 PUFF IH BID, (Reported) Gabapentin 300 Mg Capsule, 300 MG PO 2300, (Reported) Gabapentin 600 Mg Tablet, 600 MG PO 0800,1500, (Reported) Hydrocodone/Acetaminophen 1 Each Tablet, 1 TAB PO BID PRN for PAIN-MODERATE (5- 7), (Reported) Lamotrigine 100 Mg Tablet, 100 MG PO 1500,2300, (Reported) Lamotrigine 25 Mg Tablet, 25 MG PO 1500,0300, (Reported) Melatonin 5 Mg Capsule, 5 MG PO HS, (Reported) Meloxicam 7.5 Mg Tablet, 7.5 MG PO 1500, (Reported) Omeprazole 20 Mg Capsule.dr, 20 MG PO DAILY PRN for HEARTBURN, (Reported) Phenytoin Sodium Extended 100 Mg Capsule, 200 MG PO 1500, (Reported) TAKES 2 (100 MG) CAPSULES Phenytoin Sodium Extended 100 Mg Capsule, 100 MG PO 0800,2300, (Reported) Prednisone 10 Mg Tab, 10 MG PO DAILY Prescribed by: YUKI OWUSU on 02/20/19 1134 Ropinirole HCl 0.5 Mg Tablet, 0.5 MG PO 1500, (Reported) Tiotropium [place] 1 Inh Aerp, 1 CAP IH 1500, (Reported) Past Mxlivyl-Fgsndh-Oubzgx Hx Past Med/Social Hx: Reviewed Nursing Past Med/Soc Hx Patient Social History Alcohol Use: Past History Recreational Drug Use: Yes (not current, 15 years ago-ETOH and PO drugs) Drug of Choice: HX OF RX DRUG ABUSE, CLAIMS NONE 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 Smoking Status: Former Smoker Type Used: Cigars, Cigarettes Former Smoker, Quit: May 01, 2017 2nd Hand Smoke Exposure: No Recent Foreign Travel: No Contact w/Someone Who Travel: No Recent Infectious Disease Expo: No Recent Hopitalizations: No Physical Abuse: No Sexual Abuse: No Mistreated: No Fear: No Immunizations Up To Date Tetanus Booster (TDap): Less than 5yrs PED Vaccines UTD: Yes Date of Influenza Vaccine: Apr 21, 2018 Seasonal Allergies Seasonal Allergies: Yes Past Medical History Surgeries: Yes Eye Surgery, Gallbladder Respiratory: Yes Asthma, Pneumonia, Chronic Bronchitis, Sleep Apnea, COPD Currently Using CPAP: No Currently Using BIPAP: No Cardiac: Yes Heart Murmur, High Cholesterol, Hypertension, Valvular Heart Disease 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) Neuropathy, Seizure Disorder, Vertigo Reproductive Disorders: No Sexually Transmitted Disease: No HIV/AIDS: No Genitourinary: No Gastrointestinal: Yes (CHRONIC NAUSEA/VOMITING) Musculoskeletal: Yes (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 Sepsis Event Evaluation Height, Weight, BMI Height: 6'0" Weight: 174lbs. 3.0oz. 79.882204sp; 26.66 BMI Method:Stated Exam Exam Vital Signs Date Time Temp Pulse Resp B/P (MAP) Pulse Ox O2 Delivery O2 Flow Rate FiO2 04/05/19 15:42 36.4 77 22 162/70 (100) 97 Nasal Cannula 4.00 04/05/19 12:19 67 04/05/19 12:00 36.3 70 16 181/84 (116) 98 Nasal Cannula 4.00 04/05/19 11:35 98 Nasal Cannula 4.00 04/05/19 11:34 98 Nasal Cannula 4.00 04/05/19 11:31 98 Nasal Cannula 4.00 04/05/19 08:00 36.5 83 20 181/94 (123) 94 Nasal Cannula 4.00 04/05/19 07:00 79 04/05/19 03:32 92 Nasal Cannula 4.00 04/05/19 03:25 36.8 79 20 156/74 (101) 93 Nasal Cannula 4.00 04/05/19 00:45 59 04/04/19 23:46 36.5 69 18 134/66 (88) 95 Nasal Cannula 4.00 04/04/19 23:10 94 Nasal Cannula 4.00 04/04/19 20:20 Nasal Cannula 4.00 04/04/19 19:57 37.0 61 20 125/67 (86) 98 NIV Bilevel 04/04/19 19:22 84 21 97 40.00 04/04/19 19:00 61 I & O 04/05/19 07:00 Intake Total 7180 ml Output Total 5675 ml Balance 1505 ml Height & Weight Height: 6'0" Weight: 174lbs. 3.0oz. 79.894251bf; 26.66 BMI Method:Stated General Appearance: No Apparent Distress, Thin HEENT: TMs Normal Neck: Normal Inspection Respiratory: No Accessory Muscle Use, No Respiratory Distress, Decreased Breath Sounds, Wheezing Cardiovascular: Regular Rate, Rhythm Capillary Refill: Less Than 3 Seconds Extremity: Non Tender, No Pedal Edema Neurologic/Psychiatric: Motor Weakness (global), Other (altered mental status and not answering questions.) Skin: Normal Color, Warm/Dry Results Lab Laboratory Tests 04/04/19 05:55 04/05/19 05:44 Assessment/Plan Assessment/Plan PNeumonia with sepsis -Continue Cefepime and Vanc -Cultures pending oxygen dependent COPD -BiPAP PRN -Oxygen -Steroids Metastatic Lung Cancer RANI PACHECO DO Apr 05, 2019 15:53
[2019-04-05] MEDS: ENOXAPARIN 40 MG/0.4 ML (LOVENOX) SYR SC SCH (18:42)
[2019-04-05] MEDS: MELATONIN 3 MG TABLET PO SCH (20:23)
[2019-04-05] MEDS: GABAPENTIN 300 MG (NEURONTIN) CAP PO SCH ×2 (20:23→23:53)
[2019-04-05] MEDS: HYDROcodone/APAP 5 MG/325 MG (LORTAB) TAB PO PRN (20:25)
[2019-04-06] MEDS: HYDROcodone/APAP 5 MG/325 MG (LORTAB) TAB PO PRN (01:25)
[2019-04-06] MEDS: RT-ALBUTEROL/IPRATROPIUM 3 ML (DUONEB) VIAL INH SCH ×7 (01:29→21:27)
[2019-04-06] MEDS: lamoTRIgine 25 MG (LaMICtal) TAB PO SCH ×2 (03:20→14:35)
[2019-04-06] MEDS: carBAMazepine 200 MG (TEGretol) TAB PO SCH ×4 (03:22→21:26)
[2019-04-06 04:00] VITALS: BP 190/88
[2019-04-06] MEDS: CEFEPIME 1,000 MG/SWFI 10 ML IV PUSH IV SCH ×8 (05:10→23:00)
[2019-04-06] MEDS: CATHETER FLUSH 10 ML SYR IV SCH ×3 (05:10→21:27)
[2019-04-06] MEDS: methylPREDNISolone 40 MG/ML (Solu-MEDROL) VIAL IV SCH ×4 (05:10→22:59)
[2019-04-06 06:09] LABS: HEMOGLOBIN 10.6 G/DL (13.3-17.7); MEAN PLATELET VOLUME 9.2 FL (7.4-10.4); RED CELL DISTRIBUTION WIDTH 14.7 % (10.0-14.5); WHITE BLOOD COUNT 9.1 10^3/uL (4.3-11.0)
[2019-04-06 06:31] LABS: ALANINE AMINOTRANSFERASE 14 U/L (0-55); ALBUMIN 3.8 GM/DL (3.2-4.5); ALKALINE PHOSPHATASE 120 U/L (40-136); BILIRUBIN,TOTAL 0.2 MG/DL (0.1-1.0); BUN/CREATININE RATIO 8; CALCIUM 8.9 MG/DL (8.5-10.1); CARBON DIOXIDE 28 MMOL/L (21-32); CHLORIDE 100 MMOL/L (98-107); CREATININE SERUM 0.62 MG/DL (0.60-1.30); GFR ESTIMATED > 60; GLUCOSE 140 MG/DL (70-105); POTASSIUM 3.7 MMOL/L (3.6-5.0); SODIUM 138 MMOL/L (135-145); TOTAL PROTEIN 6.7 GM/DL (6.4-8.2)
[2019-04-06] MEDS: UMECLIDINIUM BROMIDE (INCRUSE ELLIPTA) 7'S IH SCH (06:44)
[2019-04-06] MEDS: RT-ADVAIR HFA 115/21 MCG PER PUFF IH SCH ×2 (06:45→19:04)
[2019-04-06 08:00] VITALS: BP 184/78
[2019-04-06] MEDS: PHENYTOIN 100 MG (DILANTIN) CAP PO SCH ×3 (08:18→21:25)
[2019-04-06] MEDS: LACTATED RINGERS 1,000 ML IV SCH ×3 (08:19→21:26)
--- NOTE | 2019-04-06 08:26 | Progress Note ---
Subjective Time Seen by a Provider: 08:24 Subjective/Events-last exam Patient continues to improve. White blood cell count 9000 he for 20,000. Patient afebrile. Patient hypertension put back on his blood pressure medicine. Waiting for chest x-ray today Focused Exam Lactate Level 04/04/19 05:55: Lactic Acid Level 1.57 Objective Exam Vital Signs Date Time Temp Pulse Resp B/P (MAP) Pulse Ox O2 Delivery O2 Flow Rate FiO2 04/06/19 07:00 78 04/06/19 06:44 98 Nasal Cannula 4.00 04/06/19 06:43 94 Nasal Cannula 4.00 04/06/19 06:43 93 Nasal Cannula 4.00 04/06/19 04:00 36.5 75 21 190/88 (122) 96 Nasal Cannula 4.00 04/06/19 01:29 94 Nasal Cannula 4.00 04/06/19 01:25 36.3 04/06/19 00:34 73 04/05/19 23:35 36.3 69 21 191/94 (126) 95 Nasal Cannula 4.00 04/05/19 21:35 94 Nasal Cannula 4.00 04/05/19 21:00 36.6 04/05/19 20:00 94 Nasal Cannula 4.00 04/05/19 19:26 36.6 79 20 168/84 (112) 95 Nasal Cannula 4.00 04/05/19 18:48 74 04/05/19 18:12 93 Nasal Cannula 4.00 04/05/19 18:12 93 Nasal Cannula 4.00 04/05/19 15:59 95 Nasal Cannula 4.00 04/05/19 15:42 36.4 77 22 162/70 (100) 97 Nasal Cannula 4.00 04/05/19 12:19 67 04/05/19 12:00 36.3 70 16 181/84 (116) 98 Nasal Cannula 4.00 04/05/19 11:35 98 Nasal Cannula 4.00 04/05/19 11:34 98 Nasal Cannula 4.00 04/05/19 11:31 98 Nasal Cannula 4.00 I & O 04/06/19 07:00 Intake Total 5040 ml Output Total 8725 ml Balance -3685 ml Capillary Refill : Less Than 3 SecondsLess Than 3 Seconds General Appearance: No Apparent Distress, WD/WN HEENT: Normal ENT Inspection Neck: Full Range of Motion, Normal Inspection Respiratory: No Accessory Muscle Use, No Respiratory Distress, Decreased Breath Sounds Cardiovascular: Regular Rate, Rhythm, No Murmur Gastrointestinal: non tender, soft Results Lab Laboratory Tests 04/06/19 05:22 04/06/19 06:00 Laboratory Tests 04/05/19 12:16: Vancomycin Level Trough 11.0 04/06/19 05:22: Sodium Level 138, Potassium Level 3.7, Chloride Level 100, Carbon Dioxide Level 28, Anion Gap 10, Blood Urea Nitrogen 5L, Creatinine 0.62, Estimat Glomerular Filtration Rate > 60, BUN/Creatinine Ratio 8, Glucose Level 140H, Calcium Level 8.9, Corrected Calcium 9.1, Total Bilirubin 0.2, Aspartate Amino Transf (AST/SGO T) 17, Alanine Aminotransferase (ALT/SGPT) 14, Alkaline Phosphatase 120, Total Protein 6.7, Albumin 3.8 04/06/19 06:00: White Blood Count 9.1, Red Blood Count 3.63L, Hemoglobin 10.6L, Hematocrit 32L, Mean Corpuscular Volume 88, Mean Corpuscular Hemoglobin 29, Mean Corpuscular Hemoglobin Concent 33, Red Cell Distribution Width 14.7H, Platelet Count 206, Mean Platelet Volume 9.2 Microbiology 04/04/19 Urine Culture - Final, Complete NO GROWTH 04/04/19 Influenza Types A,B Antigen (VY) - Final, Complete 04/04/19 Blood Culture - Preliminary, Resulted No growth Assessment/Plan Assessment/Plan Assess & Plan/Chief Complaint Right lower lobe pneumonia. Respiratory distress. COPD area Lung cancer. Seizures Clinical Quality Measures Admission Status Admission Dx Right lower lobe pneumonia. COPD. Lung cancer with metastasis. Seizure. Febrile DVT/VTE Risk/Contraindication: Risk Factor Score Per Nursin RFS Level Per Nursing on Admit: 4+=Very High AMANDEEP GENAO DO Apr 06, 2019 08:26
[2019-04-06] MEDS ORDERED: PANTOPRAZOLE 20 MG TABLET (PROTONIX) PO PRN (09:00)
[2019-04-06] MEDS ORDERED: ENOXAPARIN 40 MG/0.4 ML (LOVENOX) SYR SC SCH (09:00)
--- NOTE | 2019-04-06 09:26 | Diagnostic Imaging Report ---
INDICATION: COPD. Lung cancer. Pneumonia. COMPARISON: 04/04/2019. FINDINGS: Frontal and lateral radiographic views of the chest were obtained and show normal cardiac silhouette and pulmonary vasculature. The lungs continue to show patchy bibasilar airspace opacities. There is improved aeration of the left base when compared to the prior exam. No large effusion or pneumothorax is seen. The right internal jugular Port-A-Cath is in stable position. The osseous structures show no gross acute abnormalities. IMPRESSION: Persistent patchy bibasilar alveolar airspace opacities but with interval improved aeration of the left lower lung when compared to the prior exam. Dictated by: Dictated on workstation # [id number]
[2019-04-06] MEDS ORDERED: amLODIPine 5 MG (NORVASC) TAB ONE (09:28)
[2019-04-06] MEDS: amLODIPine 5 MG (NORVASC) TAB PO SCH (09:36)
--- NOTE | 2019-04-06 11:38 | Occupational Therapy Eval ---
OT Evaluation-General/PLF Medical Diagnosis Admission Date Apr 04, 2019 at 07:34 Medical Diagnosis: Pneumonia Onset Date: Apr 04, 2019 Therapy Diagnosis Therapy Diagnosis: debility Height/Weight Height (Feet): 6 Height (Inches): 0 Weight (Pounds): 174 Weight (Ounces): 3.0 Precautions Precautions/Isolations: Seizure, Fall Prevention, Standard Precautions Safety Interventions: Reorient-PRN Medical History Pertinent Medical History: Arthritis, COPD, Heart Failure, HTN, Post Polio Syndrome, Smoking Additional Medical History Metastatic lung cancer, high cholesterol, valvular heart disease, neuropathy, seizure disorder, vertigo, 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 2-Wjjpgkbyhz-trfytla completes the activity by him/herself with no assistance from a helper. 5-Set-up or Clean-up Assistance-helper sets up or cleans up; patient completes activity. [place] assists only prior to or following the activity. 4-Supervision or Touching Assistance-helper provides verbal cues and/or touching/steadying and/or contact guard assistance as patient completes acti vity. Assistance may be provided throughout the activity or intermittently. 3-Partial/Moderate Assistance-helper does LESS THAN HALF the effort. [place] lifts, holds or supports trunk or limbs, but provides less than half the effort. 2-Substantial/Maximal Assistance-helper does MORE THAN HALF the effort. [place] lifts or holds trunk or limbs and provides more than half the effort. 9-Ibdnudnsu-dqomnd does ALL the effort. Patient does none of the effort to complete the activity. Or, the assistance of 2 or more helpers is required for the patient to complete the activity. If activity was not attempted, code reason: 7-Patient Refused. 9-Not Applicable-not attempted and the patient did not perform the activity before the current illness, exacerbation or injury. 10-Not Attempted due to Environmental Limitations-(lack of equipment, weather restraints, etc.). 88-Not Attempted due to Medical Conditions or Safety Concerns. ADL PLOF Comments Pt states he has assist as needed with ADLs. Girlfriend assists with shower and dressing depending on his strength/endurance that day. Pt states he has a walker and cane, but does not use them. Pt reports very minimal activity during the day. Pt states he has meals delivered to his home. 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 No pain reported. Mental Status/Objective Patient Orientation: Person, Place Attachments: IV, Oxygen Current Glasses/Contacts: No Hearing Aids: No Dentures/Partials: Yes Hand Dominance: Right Upper Extremity ROM Right shoulder ROM to ~90 degrees. Pt reports arthritis in bilateral shoulders. Impaired left UE ROM/strength- post polio Upper Extremity Coordination Impaired left UE ADL-Treatment ADL-Current Pt participated in OT eval while seated in bed. Pt demonstrates adequate ROM to comb hair and complete oral care. Pt reports feeding himself without assist. Pt demonstrated ability to doff/don socks while seated in bed. Pt used urinal independently, but required assist to empty. Nurse aide reports pt completed sit to stand this morning without assist, but O2 sats dropped with activity. Pt states he is breathing better now, but declined OOB activity at this time. Pt able to state/demonstrate breathing techniques. Pt states he feels he is at baseline with ADLs and mobility, his only concern is his breathing. Education provided regarding ADLs and home safety. Pt states understanding and states he will have assist at home as needed. Discussed energy conservation. Pt states awareness/understanding. Pt denied needs at this time. No questions or concerns. Pt resting in bed with needs met after session. Eating (QC): 6 (by report) Oral Hygiene (QC): 6 (by report) On/Off Footwear (QC): 6 Education OT Patient Education: Rehab process Teaching Recipient: Patient Teaching Methods: Discussion Response to Teaching: Verbalize Understanding OT Education/Plan Problem List/Assessment Assessment: No Skilled OT Needs ID'd Discharge Recommendations Plan/Recommendations: Discontinue OT Treatment Plan/Plan of Care Treatment,Training & Education: No Plan of Care: OTHER Treatment Duration: Apr 06, 2019 Frequency: 1 time per week (evaluation only) Estimated Hrs Per Day: Other (evaluation only) Time/GCodes Start Time: 11:02 Stop Time: 11:24 Total Time Billed (hr/min): 22 Billed Treatment Time 1 visit, EV(22minutes) KAYLIN GARZA OT Apr 06, 2019 11:38
[2019-04-06 12:00] VITALS: BP 194/89
[2019-04-06] MEDS: VANCOMYCIN 1500 MG/NS 500 ML IVPB IV SCH ×2 (12:28)
--- NOTE | 2019-04-06 14:15 | Physical Therapy Evaluation ---
PT Evaluation-General Medical Diagnosis Admission Date Apr 04, 2019 at 07:34 Medical Diagnosis: Pneumonia Onset Date: Apr 04, 2019 Therapy Diagnosis Therapy Diagnosis: debility/weakness Height/Weight Height (Feet): 6 Height (Inches): 0 Weight (Pounds): 174 Weight (Ounces): 3.0 Precautions Precautions/Isolations: Seizure, Fall Prevention, Standard Precautions Referral Physician: Jung Reason for Referral: Evaluation/Treatment Medical History Pertinent Medical History: Arthritis, COPD, Heart Failure, HTN, Post Polio Syndrome, Smoking Additional Medical History lung cancer with mets Current History ER secondary to SOA Reviewed History: Yes Social History Home: Single Level Current Living Status: Significant Other PT Steps Into Home: 2 Prior Prior Level of Function SCALE: Activities may be completed with or without assistive devices. 6-Pqwyjwtqar-wcrpcjx completes the activity by him/herself with no assistance from a helper. 5-Set-up or Clean-up Assistance-helper sets up or cleans up; patient completes activity. [place] assists only prior to or following the activity. 4-Supervision or Touching Assistance-helper provides verbal cues and/or touching/steadying and/or contact guard assistance as patient completes activity. Assistance may be provided throughout the activity or intermittently. 3-Partial/Moderate Assistance-helper does LESS THAN HALF the effort. [place] lifts, holds or supports trunk or limbs, but provides less than half the effort. 2-Substantial/Maximal Assistance-helper does MORE THAN HALF the effort. [place] lifts or holds trunk or limbs and provides more than half the effort. 9-Xfcmujzci-yerqbs does ALL the effort. Patient does none of the effort to complete the activity. Or, the assistance of 2 or more helpers is required for the patient to complete the activity. If activity was not attempted, code reason: 7-Patient Refused. 9-Not Applicable-not attempted and the patient did not perform the activity before the current illness, exacerbation or injury. 10-Not Attempted due to Environmental Limitations-(lack of equipment, weather restraints, etc.). 88-Not Attempted due to Medical Conditions or Safety Concerns. Bed Mobility: 6 Transfers (B,C,W/C): 6 Gait: 6 Indoor Mobility (Ambulation): Independent Prior Devices Use: None PT Evaluation-Current Subjective Patient declined ambulation, however, agrees to PT. Objective Patient Orientation: Normal For Age Attachments: Oxygen (4L), IV ROM/Strength ROM Lower Extremities left post polio syndrome/right LE WFL Strength Lower Extremities left LE 3/5 grossly/ right LE 4/5 grossly Integumentary/Posture Integumentary refer to nursing notes Bowel Incontinence: No Bladder Incontinence: No Posture WFL Neuromuscular (Tone, Coordination, Reflexes) grossly intact Sensory Vision: Functional Hearing: Functional Hand Dominance: Right Transfers Roll Left to Right (QC): 6 Sit to Lying (QC): 6 Lying to Sitting/Side of Bed(Q: 6 Sit to Stand (QC): 6 Patient agrees to repositioning with performing independent standing and side stepping toward HOB Gait Does the Patient Walk?: Yes Balance Sitting Static: Normal Sitting Dynamic: Normal Standing Static: Normal Standing Dynamic: Normal Assessment/Needs 63 y.o. male, declined ambulation due to SOA with minimal activity. He will benefit from skilled PT to address pulmonary function with functional mobility to ensure safe return to home at maximum LOF. Rehab Potential: Guarded PT Welder Apprentice Goals Fdc Goals PT Welder Apprentice Goals Time Frame: Apr 17, 2019 Roll Left & Right (QC): 6 Sit to Lying (QC): 6 Lying-Sitting on Side/Bed(QC): 6 Sit to Stand (QC): 6 Chair/Lww-xi-Sysii Xfer(QC): 6 Toilet Transfer (QC): 6 Car Transfer (QC): 6 Does the Patient Walk: Yes Walk 10 feet (QC): 6 Walk 50ft with 2 Turns (QC): 6 PT Plan Problem List Problem List: Activity Tolerance Treatment/Plan Treatment Plan: Continue Plan of Care Treatment Plan: Education, Functional Activity Jessica, Functional Strength, Gait, Safety, Therapeutic Exercise Treatment Duration: Apr 17, 2019 Frequency: 6 times per week Estimated Hrs Per Day: .25 hour per day Patient and/or Family Agrees t: Yes Time/GCodes Time In: 1300 Time Out: 1315 Total Billed Treatment Time: 15 Total Billed Treatment 1 visit EVMod 15 min LAVON LAMAS PT Apr 06, 2019 14:15
--- NOTE | 2019-04-06 14:19 | Physician Query Clarification ---
PQ-Further Specificity Admission/Discharge Admission Date: Apr 04, 2019 at 07:34 Discharge Date: The medical record reflects the following clinical scenario: History/Risk Factors: Pneumonia, emphysema, Lung CA with bone mets Clinical Findings: T102, SOA, O2 sats 80's at home Treatment: Currently on chemo, Bipap, Nebulizers, IV Solu-medrol, IV Fluids Question: Can you further specify the laterality of the lung CA per the clinica l indicators above? Please document a response in the Progress Notes or Discharge Summary. 1. Right lung CA 2. Left lung CA 3. Other, with explanation of the clinical findings. 4. Clinically undetermined, no explanation for the clinical findings. PHYSICIAN RESPONSE Can you specify per above: Clinically undetermined Please remember a lack of response to the above will prompt a phone page by CDI/Coding staff. In responding to this query, please exercise your independent professional judgment. The purpose of this communication is to more accurately reflect the complexity of your patients condition. The fact that a question is asked does not imply that any particular answer is desired or expected. Thank you for your timely response to this clarification. Requestors name: Juan THIS PHYSICIAN QUERY FORM IS A PERMANENT PART OF THE MEDICAL RECORD JUAN VILLA Apr 06, 2019 14:19 AMANDEEP GENAO DO Apr 06, 2019 18:37
[2019-04-06] MEDS: rOPINIRole 0.25 MG (REQUIP) TAB PO SCH (14:35)
[2019-04-06] MEDS: GABAPENTIN 600 MG (NEURONTIN) TAB PO SCH (14:36)
[2019-04-06] MEDS: MELOXICAM 7.5 MG (MOBIC) TABLET PO SCH (14:36)
--- NOTE | 2019-04-06 15:44 | Pulmonary Progress Note ---
Subjective Time Seen by a Provider: 12:51 Subjective/Events-last exam Pt appears to be doing better. Sepsis Event Evaluation Height, Weight, BMI Height: 6'0" Weight: 174lbs. 3.0oz. 79.812000ri; 26.66 BMI Method:Stated Focused Exam Lactate Level 04/04/19 05:55: Lactic Acid Level 1.57 Exam Exam Vital Signs Date Time Temp Pulse Resp B/P (MAP) Pulse Ox O2 Delivery O2 Flow Rate FiO2 04/06/19 14:02 95 Nasal Cannula 4.00 04/06/19 12:42 80 04/06/19 12:00 37.0 80 22 194/89 (124) 95 Nasal Cannula 4.00 04/06/19 10:27 94 Nasal Cannula 4.00 04/06/19 08:00 36.8 81 22 184/78 (113) 90 Nasal Cannula 4.00 04/06/19 08:00 95 Nasal Cannula 4.00 04/06/19 07:00 78 04/06/19 06:44 98 Nasal Cannula 4.00 04/06/19 06:43 94 Nasal Cannula 4.00 04/06/19 06:43 93 Nasal Cannula 4.00 04/06/19 04:00 36.5 75 21 190/88 (122) 96 Nasal Cannula 4.00 04/06/19 01:29 94 Nasal Cannula 4.00 04/06/19 01:25 36.3 04/06/19 00:34 73 04/05/19 23:35 36.3 69 21 191/94 (126) 95 Nasal Cannula 4.00 04/05/19 21:35 94 Nasal Cannula 4.00 04/05/19 21:00 36.6 04/05/19 20:00 94 Nasal Cannula 4.00 04/05/19 19:26 36.6 79 20 168/84 (112) 95 Nasal Cannula 4.00 04/05/19 18:48 74 04/05/19 18:12 93 Nasal Cannula 4.00 04/05/19 18:12 93 Nasal Cannula 4.00 04/05/19 15:59 95 Nasal Cannula 4.00 I & O 04/06/19 07:00 Intake Total 5040 ml Output Total 8725 ml Balance -3685 ml Height & Weight Height: 6'0" Weight: 174lbs. 3.0oz. 79.975326gu; 26.66 BMI Method:Stated General Appearance: No Apparent Distress, WD/WN HEENT: Normal ENT Inspection Neck: Full Range of Motion, Normal Inspection Respiratory: No Accessory Muscle Use, No Respiratory Distress, Decreased Breath Sounds Cardiovascular: Regular Rate, Rhythm, No Murmur Capillary Refill: Less Than 3 Seconds Gastrointestinal: non tender, soft Extremity: Non Tender, No Pedal Edema Neurologic/Psychiatric: Motor Weakness (global), Other (altered mental status and not answering questions.) Skin: Normal Color, Warm/Dry Results Lab Laboratory Tests 04/05/19 05:44 04/06/19 05:22 04/06/19 06:00 Assessment/Plan Assessment/Plan PNeumonia with sepsis -Continue Cefepime and Vanc -Cultures pending oxygen dependent COPD -BiPAP PRN -Oxygen -Steroids Metastatic Lung Cancer RANI PACHECO DO Apr 06, 2019 15:44
[2019-04-06 15:47] VITALS: BP 186/93
[2019-04-06] MEDS: ONDANSETRON 4 MG/2 ML (SDV) Z0FRAN IVP PRN ×2 (16:02→21:26)
[2019-04-06] MEDS: ENOXAPARIN 40 MG/0.4 ML (LOVENOX) SYR SC SCH (17:14)
[2019-04-06 20:17] VITALS: BP 173/79
[2019-04-06] MEDS: MELATONIN 3 MG TABLET PO SCH (21:25)
[2019-04-07 00:10] VITALS: BP 152/91
[2019-04-07] MEDS: VANCOMYCIN 1500 MG/NS 500 ML IVPB IV SCH ×2 (01:45)
[2019-04-07] MEDS: RT-ALBUTEROL/IPRATROPIUM 3 ML (DUONEB) VIAL INH SCH ×6 (02:20→21:21)
[2019-04-07] MEDS: lamoTRIgine 25 MG (LaMICtal) TAB PO SCH ×2 (03:22→14:46)
[2019-04-07] MEDS: carBAMazepine 200 MG (TEGretol) TAB PO SCH ×4 (03:27→21:14)
[2019-04-07 04:18] VITALS: BP 181/84
[2019-04-07] MEDS: CEFEPIME 1,000 MG/SWFI 10 ML IV PUSH IV SCH ×6 (05:39→17:11)
[2019-04-07] MEDS: LACTATED RINGERS 1,000 ML IV SCH ×2 (05:39→21:14)
[2019-04-07] MEDS: methylPREDNISolone 40 MG/ML (Solu-MEDROL) VIAL IV SCH ×3 (05:39→17:11)
[2019-04-07] MEDS: CATHETER FLUSH 10 ML SYR IV SCH ×3 (05:39→21:14)
[2019-04-07 08:00] VITALS: BP 180/86
[2019-04-07] MEDS ORDERED: amLODIPine 5 MG (NORVASC) TAB PO SCH (08:00)
[2019-04-07] MEDS: PHENYTOIN 100 MG (DILANTIN) CAP PO SCH ×3 (08:21→21:14)
[2019-04-07] MEDS: amLODIPine 5 MG (NORVASC) TAB PO SCH (08:21)
[2019-04-07] MEDS: GABAPENTIN 600 MG (NEURONTIN) TAB PO SCH ×2 (08:21→14:43)
--- NOTE | 2019-04-07 08:44 | Progress Note ---
Subjective Time Seen by a Provider: 08:42 Subjective/Events-last exam Patient feeling better today. Patient started. Last night Patient hypertensive and lisinopril started and decreased IV rate Objective Exam Vital Signs Date Time Temp Pulse Resp B/P (MAP) Pulse Ox O2 Delivery O2 Flow Rate FiO2 04/07/19 04:18 36.6 64 18 181/84 (116) 96 High Flow N/C 4.00 04/07/19 02:21 93 Nasal Cannula 4.00 04/07/19 01:00 60 04/07/19 00:10 36.4 71 18 152/91 (111) 97 High Flow N/C 4.00 04/06/19 21:00 Nasal Cannula 4.00 04/06/19 20:17 37.7 68 20 173/79 (110) 92 High Flow N/C 4.00 04/06/19 19:00 80 04/06/19 15:47 36.7 77 20 186/93 (124) 92 04/06/19 14:02 95 Nasal Cannula 4.00 04/06/19 12:42 80 04/06/19 12:00 37.0 80 22 194/89 (124) 95 Nasal Cannula 4.00 04/06/19 10:27 94 Nasal Cannula 4.00 I & O 04/07/19 07:00 Intake Total 8060 ml Output Total 8050 ml Balance 10 ml Capillary Refill : Less Than 3 SecondsLess Than 3 Seconds General Appearance: No Apparent Distress, Thin HEENT: Normal ENT Inspection Neck: Full Range of Motion Respiratory: No Accessory Muscle Use, No Respiratory Distress, Decreased Breath Sounds Cardiovascular: Regular Rate, Rhythm, No Murmur Gastrointestinal: non tender, soft Results Lab Microbiology 04/05/19 MRSA Screen - Final, Complete MRSA not isolated 04/04/19 Urine Culture - Final, Complete NO GROWTH 04/04/19 Blood Culture - Preliminary, Resulted No growth Assessment/Plan Assessment/Plan Assess & Plan/Chief Complaint Right lower lobe pneumonia. Respiratory distress. COPD area Lung cancer. Seizures. . 04/07/19 [place]. Right lower lobe pneumonia. Respiratory distress. COPD Hypertension. Metastatic lung cancer Clinical Quality Measures Admission Status Admission Dx Right lower lobe pneumonia. COPD. Lung cancer with metastasis. Seizure. Febrile DVT/VTE Risk/Contraindication: Risk Factor Score Per Nursin RFS Level Per Nursing on Admit: 4+=Very High AMANDEEP GENAO DO Apr 07, 2019 08:44
[2019-04-07] MEDS ORDERED: lisINopril 10 MG (PRINIVIL) TABLET PO SCH (09:00)
[2019-04-07] MEDS: lisINopril 10 MG (PRINIVIL) TABLET PO SCH (10:05)
[2019-04-07] MEDS: UMECLIDINIUM BROMIDE (INCRUSE ELLIPTA) 7'S IH SCH (10:29)
[2019-04-07] MEDS: RT-ADVAIR HFA 115/21 MCG PER PUFF IH SCH ×2 (10:29→18:45)
--- NOTE | 2019-04-07 10:31 | Physical Therapy Daily Note ---
PT Daily Note-Current Subjective Patient agreeable to PT. Patient states he slept better last night and is feeling better today than he was yesterday. Patient voices no complaints of pain. Appearance Patient left in bed with head elevated, call light and bedside table within reach. Mental Status Patient Orientation: Person, Time, Situation Attachments: Oxygen (4L), IV Transfers SCALE: Activities may be completed with or without assistive devices. 8-Zqrnjeoomy-gyqjxcz completes the activity by him/herself with no assistance from a helper. 5-Set-up or Clean-up Assistance-helper sets up or cleans up; patient completes activity. [place] assists only prior to or following the activity. 4-Supervision or Touching Assistance-helper provides verbal cues and/or touching/steadying and/or contact guard assistance as patient completes activity. Assistance may be provided throughout the activity or intermittently. 3-Partial/Moderate Assistance-helper does LESS THAN HALF the effort. [place] lifts, holds or supports trunk or limbs, but provides less than half the effort. 2-Substantial/Maximal Assistance-helper does MORE THAN HALF the effort. [place] lifts or holds trunk or limbs and provides more than half the effort. 8-Qapygxpoz-wwckhr does ALL the effort. Patient does none of the effort to complete the activity. Or, the assistance of 2 or more helpers is required for the patient to complete the activity. If activity was not attempted, code reason: 7-Patient Refused. 9-Not Applicable-not attempted and the patient did not perform the activity before the current illness, exacerbation or injury. 10-Not Attempted due to Environmental Limitations-(lack of equipment, weather restraints, etc.). 88-Not Attempted due to Medical Conditions or Safety Concerns. Roll Left & Right (QC): 6 Sit to Lying (QC): 6 Lying to Sitting/Side of Bed(Q: 6 Sit to Stand (QC): 6 Chair/Wmr-ix-Ocmxf Xfer(QC): 4 Gait Training Does the Patient Walk?: Yes Distance: 30' Walk 10 feet (QC): 4 Gait Assistive Device: FWW Patient ambulated 30' CGA with FWW. Patient needed one rest break due to SOA, cues for purse lip breathing Wheelchair Training Does the Pt Use a Wheelchair?: No Exercises Seated Therapy Exercises: Ankle pumps, Long arc quads, Hip flexion Seated Reps: 10 Treatments Ambulation, bilateral lower extremity exercises Assessment Current Status: Fair Progress Patient slightly unsteady during gait but had no loss of balance. 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 PT Prison Goals Time Frame: Apr 17, 2019 Roll Left & Right (QC): 6 Sit to Lying (QC): 6 Lying-Sitting on Side/Bed(QC): 6 Sit to Stand (QC): 6 Chair/Dst-mp-Pgpaf Xfer(QC): 6 Toilet Transfer (QC): 6 Car Transfer (QC): 6 Does the Patient Walk: Yes Walk 10 feet (QC): 6 Walk 50ft with 2 Turns (QC): 6 PT Plan Problem List Problem List: Activity Tolerance, Functional Strength, Safety, Balance, Gait, Transfer Treatment/Plan Treatment Plan: Continue Plan of Care Treatment Plan: Education, Functional Activity Jessica, Functional Strength, Gait, Safety, Therapeutic Exercise, Transfers Treatment Duration: Apr 17, 2019 Frequency: 6 times per week Estimated Hrs Per Day: .25 hour per day Patient and/or Family Agrees t: Yes Safety Risks/Education Patient Education: Gait Training, Transfer Techniques Teaching Recipient: Patient Teaching Methods: Discussion Response to Teaching: Verbalize Understanding Time/GCodes Time In: 1015 Time Out: 1027 Total Billed Treatment Time: 12 Total Billed Treatment 1 visit FA (12 minutes) CAROLYN EPPS PT Apr 07, 2019 10:31
--- NOTE | 2019-04-07 11:20 | Diagnostic Imaging Report ---
INDICATION: Lung cancer, follow-up. TIME OF EXAM: 11:14 a.m. COMPARISON: Correlation is made with prior chest from 04/06/2019. FINDINGS: Right chest wall port has tip overlying the SVC. Heart size is stable. Basilar opacities show improvement on the left. There are some residual opacities in the right base, unchanged. Mid and upper lung lo are fairly clear. There is no pneumothorax. No effusion is seen. IMPRESSION: Improved aeration in the left base. There are some persistent opacities in the right base. Dictated by: Dictated on workstation # [id number]
[2019-04-07 12:00] VITALS: BP_SYST 122; BP_SYST 194; BP_DIAS 60; BP_DIAS 90
--- NOTE | 2019-04-07 12:53 | Pulmonary Progress Note ---
Subjective Time Seen by a Provider: 07:24 Subjective/Events-last exam Pt feels better. Sepsis Event Evaluation Height, Weight, BMI Height: 6'0" Weight: 174lbs. 3.0oz. 79.066523qa; 26.66 BMI Method:Stated Exam Exam Vital Signs Date Time Temp Pulse Resp B/P (MAP) Pulse Ox O2 Delivery O2 Flow Rate FiO2 04/07/19 10:42 Nasal Cannula 4.00 04/07/19 10:41 Nasal Cannula 4.00 04/07/19 10:29 96 Nasal Cannula 4.00 04/07/19 08:00 95 Nasal Cannula 4.00 04/07/19 08:00 35.8 70 24 180/86 (117) 94 Nasal Cannula 4.00 04/07/19 07:00 63 04/07/19 04:18 36.6 64 18 181/84 (116) 96 High Flow N/C 4.00 04/07/19 02:21 93 Nasal Cannula 4.00 04/07/19 01:00 60 04/07/19 00:10 36.4 71 18 152/91 (111) 97 High Flow N/C 4.00 04/06/19 21:00 Nasal Cannula 4.00 04/06/19 20:17 37.7 68 20 173/79 (110) 92 High Flow N/C 4.00 04/06/19 19:00 80 04/06/19 15:47 36.7 77 20 186/93 (124) 92 04/06/19 14:02 95 Nasal Cannula 4.00 I & O 04/07/19 07:00 Intake Total 8060 ml Output Total 8050 ml Balance 10 ml Height & Weight Height: 6'0" Weight: 174lbs. 3.0oz. 79.222657mk; 26.66 BMI Method:Stated General Appearance: No Apparent Distress, WD/WN HEENT: Normal ENT Inspection Neck: Full Range of Motion, Normal Inspection Respiratory: No Accessory Muscle Use, No Respiratory Distress, Decreased Breath Sounds Cardiovascular: Regular Rate, Rhythm, No Murmur Capillary Refill: Less Than 3 Seconds Gastrointestinal: non tender, soft Extremity: Non Tender, No Pedal Edema Neurologic/Psychiatric: Motor Weakness (global), Other (altered mental status and not answering questions.) Skin: Normal Color, Warm/Dry Results Lab Laboratory Tests 04/06/19 05:22 04/06/19 06:00 Assessment/Plan Assessment/Plan PNeumonia with sepsis -Continue Cefepime and d/c Vanc -Cultures pending oxygen dependent COPD -BiPAP PRN -Oxygen -Steroids Metastatic Lung Cancer RANI PACHECO DO Apr 07, 2019 12:53
[2019-04-07] MEDS: MELOXICAM 7.5 MG (MOBIC) TABLET PO SCH (14:43)
[2019-04-07] MEDS: rOPINIRole 0.25 MG (REQUIP) TAB PO SCH (14:43)
[2019-04-07 16:00] VITALS: BP 135/79
[2019-04-07] MEDS: ENOXAPARIN 40 MG/0.4 ML (LOVENOX) SYR SC SCH (17:13)
[2019-04-07 20:00] VITALS: BP 157/77
[2019-04-07] MEDS: MELATONIN 3 MG TABLET PO SCH (21:13)
[2019-04-07] MEDS: GABAPENTIN 300 MG (NEURONTIN) CAP PO SCH (21:14)
[2019-04-08] MEDS: methylPREDNISolone 40 MG/ML (Solu-MEDROL) VIAL IV SCH ×2 (00:24→06:12)
[2019-04-08] MEDS: CEFEPIME 1,000 MG/SWFI 10 ML IV PUSH IV SCH ×8 (00:24→18:30)
[2019-04-08 00:35] VITALS: BP 128/71
[2019-04-08] MEDS: lamoTRIgine 25 MG (LaMICtal) TAB PO SCH ×2 (02:08→15:00)
[2019-04-08] MEDS: carBAMazepine 200 MG (TEGretol) TAB PO SCH ×4 (02:09→21:15)
[2019-04-08] MEDS: RT-ALBUTEROL/IPRATROPIUM 3 ML (DUONEB) VIAL INH SCH ×6 (02:28→21:59)
[2019-04-08 04:00] VITALS: BP_SYST 146; BP_SYST 172; BP_DIAS 70; BP_DIAS 93
[2019-04-08 05:53] LABS: HEMOGLOBIN 10.2 G/DL (13.3-17.7); MEAN PLATELET VOLUME 9.1 FL (7.4-10.4); RED CELL DISTRIBUTION WIDTH 14.5 % (10.0-14.5); WHITE BLOOD COUNT 4.6 10^3/uL (4.3-11.0)
[2019-04-08] MEDS: CATHETER FLUSH 10 ML SYR IV SCH ×3 (06:12→21:15)
[2019-04-08 06:30] LABS: BUN/CREATININE RATIO 14; CALCIUM 8.9 MG/DL (8.5-10.1); CARBON DIOXIDE 30 MMOL/L (21-32); CHLORIDE 95 MMOL/L (98-107); GFR ESTIMATED > 60; GLUCOSE 142 MG/DL (70-105); SODIUM 136 MMOL/L (135-145)
--- NOTE | 2019-04-08 07:28 | Pulmonary Progress Note ---
Subjective Time Seen by a Provider: 07:25 Subjective/Events-last exam PNeumonia with sepsis Cefepime and d/c Vanc -Cultures pending oxygen dependent COPD -BiPAP PRN -Oxygen -Steroids Metastatic Lung Cancer Sepsis Event Evaluation Height, Weight, BMI Height: 6'0" Weight: 174lbs. 3.0oz. 79.712631ja; 26.66 BMI Method:Stated Exam Exam Vital Signs Date Time Temp Pulse Resp B/P (MAP) Pulse Ox O2 Delivery O2 Flow Rate FiO2 04/08/19 06:47 94 Nasal Cannula 4.00 04/08/19 04:00 36.7 77 20 172/93 (119) 97 High Flow N/C 4.00 04/08/19 02:28 90 Nasal Cannula 4.00 04/08/19 01:00 70 04/08/19 00:35 36.8 69 21 128/71 (90) 93 Nasal Cannula 4.00 04/07/19 21:24 92 Nasal Cannula 4.00 04/07/19 20:00 Nasal Cannula 4.00 04/07/19 20:00 37.0 70 20 157/77 (103) 92 Nasal Cannula 4.00 04/07/19 19:00 74 04/07/19 18:46 94 Nasal Cannula 4.00 04/07/19 16:00 36.8 77 20 135/79 (97) 94 Nasal Cannula 4.00 04/07/19 15:17 92 Nasal Cannula 4.00 04/07/19 13:00 91 04/07/19 12:00 37.0 84 20 194/90 (124) 93 Nasal Cannula 4.00 04/07/19 10:42 Nasal Cannula 4.00 04/07/19 10:41 Nasal Cannula 4.00 04/07/19 10:29 96 Nasal Cannula 4.00 04/07/19 08:00 95 Nasal Cannula 4.00 04/07/19 08:00 35.8 70 24 180/86 (117) 94 Nasal Cannula 4.00 I & O 04/08/19 07:00 Intake Total 4350 ml Output Total 4700 ml Balance -350 ml Height & Weight Height: 6'0" Weight: 174lbs. 3.0oz. 79.645631oc; 26.66 BMI Method:Stated General Appearance: No Apparent Distress, WD/WN HEENT: Normal ENT Inspection Neck: Full Range of Motion, Normal Inspection Respiratory: No Accessory Muscle Use, No Respiratory Distress, Decreased Breath Sounds Cardiovascular: Regular Rate, Rhythm, No Murmur Capillary Refill: Less Than 3 Seconds Gastrointestinal: non tender, soft Extremity: Non Tender, No Pedal Edema Neurologic/Psychiatric: Motor Weakness (global), Other (altered mental status and not answering questions.) Skin: Normal Color, Warm/Dry Results Lab Laboratory Tests 04/08/19 05:35 Assessment/Plan Assessment/Plan PNeumonia with sepsis - Cefepime -Cultures neg oxygen dependent COPD -BiPAP PRN -Oxygen -Steroids - change to prednisone taper Metastatic Lung Cancer RANI PACHECO DO Apr 08, 2019 07:28
[2019-04-08 08:00] VITALS: BP 179/89
--- NOTE | 2019-04-08 08:06 | Progress Note ---
Subjective Time Seen by a Provider: 08:03 Subjective/Events-last exam Patient states he's feeling better. Patient feels 50 percent better. Patient still has wheezing and crackles. Blood tests look better. Chest x-ray not done yet Objective Exam Vital Signs Date Time Temp Pulse Resp B/P (MAP) Pulse Ox O2 Delivery O2 Flow Rate FiO2 04/08/19 07:00 68 04/08/19 06:47 94 Nasal Cannula 4.00 04/08/19 04:00 36.7 77 20 172/93 (119) 97 High Flow N/C 4.00 04/08/19 02:28 90 Nasal Cannula 4.00 04/08/19 01:00 70 04/08/19 00:35 36.8 69 21 128/71 (90) 93 Nasal Cannula 4.00 04/07/19 21:24 92 Nasal Cannula 4.00 04/07/19 20:00 Nasal Cannula 4.00 04/07/19 20:00 37.0 70 20 157/77 (103) 92 Nasal Cannula 4.00 04/07/19 19:00 74 04/07/19 18:46 94 Nasal Cannula 4.00 04/07/19 16:00 36.8 77 20 135/79 (97) 94 Nasal Cannula 4.00 04/07/19 15:17 92 Nasal Cannula 4.00 04/07/19 13:00 91 04/07/19 12:00 37.0 84 20 194/90 (124) 93 Nasal Cannula 4.00 04/07/19 10:42 Nasal Cannula 4.00 04/07/19 10:41 Nasal Cannula 4.00 04/07/19 10:29 96 Nasal Cannula 4.00 I & O 04/08/19 07:00 Intake Total 4350 ml Output Total 4700 ml Balance -350 ml Capillary Refill : Less Than 3 SecondsLess Than 3 Seconds General Appearance: No Apparent Distress, WD/WN HEENT: Normal ENT Inspection Neck: Full Range of Motion, Non Tender Respiratory: No Accessory Muscle Use, No Respiratory Distress, Crackles, Decrea sed Breath Sounds, Wheezing Cardiovascular: Regular Rate, Rhythm, No Murmur Gastrointestinal: non tender, soft Results Lab Laboratory Tests 04/08/19 05:35 Laboratory Tests 04/08/19 05:35: White Blood Count 4.6, Red Blood Count 3.57L, Hemoglobin 10.2L, Hematocrit 32L, Mean Corpuscular Volume 89, Mean Corpuscular Hemoglobin 29, Mean Corpuscular Hemoglobin Concent 32, Red Cell Distribution Width 14.5, Platelet Count 208, Mean Platelet Volume 9.1, Sodium Level 136, Potassium Level 4.0, Chloride Level 95L, Carbon Dioxide Level 30, Anion Gap 11, Blood Urea Nitrogen 10, Creatinine 0.70, Estimat Glomerular Filtration Rate > 60, BUN/Creatinine Ratio 14, Glucose Level 142H, Calcium Level 8.9 Microbiology 04/05/19 MRSA Screen - Final, Complete MRSA not isolated 04/04/19 Urine Culture - Final, Complete NO GROWTH 04/04/19 Blood Culture - Preliminary, Resulted No growth Assessment/Plan Assessment/Plan Assess & Plan/Chief Complaint Right lower lobe pneumonia. Respiratory distress. COPD area Lung cancer. Seizures. . 04/07/19 [place]. Right lower lobe pneumonia. Respiratory distress. COPD Hypertension. Metastatic lung cancer. . 04/08/2019. Pneumonia x-ray yesterday shows improving. Respiratory distress. COPD Hypertension. Metastatic lung disease. Patient feels 50 percent better Clinical Quality Measures Admission Status Admission Dx Right lower lobe pneumonia. COPD. Lung cancer with metastasis. Seizure. Febrile DVT/VTE Risk/Contraindication: Risk Factor Score Per Nursin RFS Level Per Nursing on Admit: 4+=Very High AMANDEEP GENAO DO Apr 08, 2019 08:05
[2019-04-08] MEDS: GABAPENTIN 600 MG (NEURONTIN) TAB PO SCH ×2 (08:28→15:01)
[2019-04-08] MEDS: amLODIPine 5 MG (NORVASC) TAB PO SCH (08:28)
[2019-04-08] MEDS: lisINopril 10 MG (PRINIVIL) TABLET PO SCH (08:28)
[2019-04-08] MEDS: PHENYTOIN 100 MG (DILANTIN) CAP PO SCH ×3 (08:30→21:15)
--- NOTE | 2019-04-08 09:54 | Diagnostic Imaging Report ---
INDICATION: Respiratory distress. COMPARISON: Comparison made to prior examination 04/07/2019. FINDINGS: The heart size is normal. There is some bibasilar subsegmental atelectasis and/or pneumonitis. There is no pleural effusion or pneumothorax. Mediastinum is unremarkable. Utythy-m-Yhnm catheter overlies the right hemithorax. IMPRESSION: Bibasilar subsegmental atelectasis and/or pneumonitis. Dictated by: Dictated on workstation # [id number]
--- NOTE | 2019-04-08 09:57 | Physical Therapy Daily Note ---
PT Daily Note-Current Subjective Patient was agreeable to therapy. Patient stated he slept very good last night and is feeling better. Patient reports no pain at this time. Appearance Patient left in recliner with call light and bedside table within reach. Mental Status Patient Orientation: Person, Place, Time, Situation Attachments: Oxygen (5L at rest; 6L with ambulation ), IV Transfers SCALE: Activities may be completed with or without assistive devices. 4-Hasdkoejsi-ddnmioz completes the activity by him/herself with no assistance from a helper. 5-Set-up or Clean-up Assistance-helper sets up or cleans up; patient completes activity. [place] assists only prior to or following the activity. 4-Supervision or Touching Assistance-helper provides verbal cues and/or touching/steadying and/or contact guard assistance as patient completes activity. Assistance may be provided throughout the activity or intermittently. 3-Partial/Moderate Assistance-helper does LESS THAN HALF the effort. [place] lifts, holds or supports trunk or limbs, but provides less than half the effort. 2-Substantial/Maximal Assistance-helper does MORE THAN HALF the effort. [place] lifts or holds trunk or limbs and provides more than half the effort. 4-Hxidyesme-hgvglv does ALL the effort. Patient does none of the effort to complete the activity. Or, the assistance of 2 or more helpers is required for the patient to complete the activity. If activity was not attempted, code reason: 7-Patient Refused. 9-Not Applicable-not attempted and the patient did not perform the activity before the current illness, exacerbation or injury. 10-Not Attempted due to Environmental Limitations-(lack of equipment, weather restraints, etc.). 88-Not Attempted due to Medical Conditions or Safety Concerns. Roll Left & Right (QC): 6 Sit to Lying (QC): 6 Lying to Sitting/Side of Bed(Q: 6 Sit to Stand (QC): 6 Chair/Gch-bl-Qyacu Xfer(QC): 6 Gait Training Does the Patient Walk?: Yes Distance: 100' Walk 10 feet (QC): 4 Walk 50 ft with 2 Turns(QC): 4 Gait Persons Needed: 1 Gait Assistive Device: FWW Wheelchair Training Does the Pt Use a Wheelchair?: No Treatments Ambulation Assessment Current Status: Fair Progress Patient ceased therapy due to SOA and fatigue. Patient ambulation was stable, needs frequent rest breaks due to SOA. 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 Time Frame: Apr 17, 2019 Roll Left & Right (QC): 6 Sit to Lying (QC): 6 Lying-Sitting on Side/Bed(QC): 6 Sit to Stand (QC): 6 Chair/Lrr-zg-Ioxcl Xfer(QC): 6 Toilet Transfer (QC): 6 Car Transfer (QC): 6 Does the Patient Walk: Yes Walk 10 feet (QC): 6 Walk 50ft with 2 Turns (QC): 6 PT Plan Problem List Problem List: Activity Tolerance, Functional Strength, Safety, Balance, Gait, Transfer Treatment/Plan Treatment Plan: Continue Plan of Care Treatment Plan: Education, Functional Activity Jessica, Functional Strength, Gait, Safety, Therapeutic Exercise, Transfers Treatment Duration: Apr 17, 2019 Frequency: 6 times per week Estimated Hrs Per Day: .25 hour per day Patient and/or Family Agrees t: Yes Safety Risks/Education Patient Education: Gait Training, Transfer Techniques Teaching Recipient: Patient Teaching Methods: Demonstration Response to Teaching: Reinforcement Needed Time/GCodes Time In: 918 Time Out: 932 Total Billed Treatment Time: 14 Total Billed Treatment 1 visit FA (14 minutes) LAVON LAMAS PT Apr 08, 2019 09:57
[2019-04-08] MEDS: UMECLIDINIUM BROMIDE (INCRUSE ELLIPTA) 7'S IH SCH (10:57)
[2019-04-08] MEDS: RT-ADVAIR HFA 115/21 MCG PER PUFF IH SCH ×2 (10:57→18:17)
[2019-04-08] MEDS: predniSONE 10 MG TAB PO SCH (11:11)
[2019-04-08 12:00] VITALS: BP 159/90
[2019-04-08] MEDS: MELOXICAM 7.5 MG (MOBIC) TABLET PO SCH (15:00)
[2019-04-08] MEDS: rOPINIRole 0.25 MG (REQUIP) TAB PO SCH (15:00)
[2019-04-08 15:30] VITALS: BP 127/73
[2019-04-08] MEDS: ENOXAPARIN 40 MG/0.4 ML (LOVENOX) SYR SC SCH (18:30)
[2019-04-08 19:36] VITALS: BP 124/76
[2019-04-08] MEDS: MELATONIN 3 MG TABLET PO SCH (21:14)
[2019-04-08] MEDS: HYDROcodone/APAP 5 MG/325 MG (LORTAB) TAB PO PRN (21:14)
[2019-04-08] MEDS: GABAPENTIN 300 MG (NEURONTIN) CAP PO SCH (21:14)
[2019-04-09] MEDS: CEFEPIME 1,000 MG/SWFI 10 ML IV PUSH IV SCH ×4 (00:36→05:24)
[2019-04-09 01:00] VITALS: BP 115/76
[2019-04-09] MEDS: RT-ALBUTEROL/IPRATROPIUM 3 ML (DUONEB) VIAL INH SCH ×2 (02:07→07:42)
[2019-04-09 03:29] VITALS: BP 119/70
[2019-04-09] MEDS: lamoTRIgine 25 MG (LaMICtal) TAB PO SCH (04:33)
[2019-04-09] MEDS: carBAMazepine 200 MG (TEGretol) TAB PO SCH ×2 (04:35→08:17)
[2019-04-09 04:47] LABS: HEMOGLOBIN 10.6 G/DL (13.3-17.7); MEAN PLATELET VOLUME 8.8 FL (7.4-10.4); RED CELL DISTRIBUTION WIDTH 14.9 % (10.0-14.5); WHITE BLOOD COUNT 5.2 10^3/uL (4.3-11.0)
[2019-04-09 05:00] LABS: BUN/CREATININE RATIO 15; CALCIUM 8.8 MG/DL (8.5-10.1); CARBON DIOXIDE 31 MMOL/L (21-32); CHLORIDE 94 MMOL/L (98-107); CREATININE SERUM 0.71 MG/DL (0.60-1.30); GFR ESTIMATED > 60; GLUCOSE 167 MG/DL (70-105); POTASSIUM 3.4 MMOL/L (3.6-5.0); SODIUM 136 MMOL/L (135-145)
[2019-04-09] MEDS: predniSONE 10 MG TAB PO SCH (05:24)
[2019-04-09] MEDS: CATHETER FLUSH 10 ML SYR IV SCH (05:26)
--- NOTE | 2019-04-09 05:57 | Pulmonary Progress Note ---
Subjective Time Seen by a Provider: 05:55 Sepsis Event Evaluation Height, Weight, BMI Height: 6'0" Weight: 174lbs. 3.0oz. 79.690506ue; 26.66 BMI Method:Stated Exam Exam Vital Signs Date Time Temp Pulse Resp B/P (MAP) Pulse Ox O2 Delivery O2 Flow Rate FiO2 04/09/19 03:29 36.2 77 20 119/70 (86) 94 Nasal Cannula 5.00 04/09/19 02:08 97 Nasal Cannula 4.00 04/09/19 01:00 60 04/09/19 01:00 36.6 68 20 115/76 (89) 97 Nasal Cannula 5.00 04/08/19 21:59 90 Nasal Cannula 4.00 04/08/19 20:00 90 Nasal Cannula 4.00 04/08/19 19:36 36.4 83 22 124/76 (92) 94 Nasal Cannula 5.00 04/08/19 19:00 80 04/08/19 18:17 93 Nasal Cannula 4.00 04/08/19 15:30 37.0 85 20 127/73 (91) 94 Nasal Cannula 5.00 04/08/19 14:48 92 Nasal Cannula 4.00 04/08/19 13:00 81 04/08/19 12:00 36.7 85 16 159/90 (113) 95 High Flow N/C 4.00 04/08/19 10:58 Nasal Cannula 4.00 04/08/19 10:58 Nasal Cannula 4.00 04/08/19 10:57 92 Nasal Cannula 4.00 04/08/19 08:10 Nasal Cannula 4.00 04/08/19 08:00 36.8 78 20 179/89 (119) 91 High Flow N/C 4.00 04/08/19 07:00 68 04/08/19 06:47 94 Nasal Cannula 4.00 I & O 04/09/19 07:00 Intake Total 2760 ml Output Total 2725 ml Balance 35 ml Height & Weight Height: 6'0" Weight: 174lbs. 3.0oz. 79.077075fc; 26.66 BMI Method:Stated General Appearance: No Apparent Distress, WD/WN HEENT: Normal ENT Inspection Neck: Full Range of Motion, Non Tender Respiratory: No Accessory Muscle Use, No Respiratory Distress, Crackles, Decreased Breath Sounds, Wheezing Cardiovascular: Regular Rate, Rhythm, No Murmur Capillary Refill: Less Than 3 Seconds Gastrointestinal: non tender, soft Extremity: Non Tender, No Pedal Edema Neurologic/Psychiatric: Motor Weakness (global), Other (altered mental status and not answering questions.) Skin: Normal Color, Warm/Dry Results Lab Laboratory Tests 04/08/19 05:35 04/09/19 04:30 Assessment/Plan Assessment/Plan PNeumonia with sepsis - Cefepime - D/C at discharge -Cultures neg oxygen dependent COPD -BiPAP PRN -Oxygen - prednisone taper Metastatic Lung Cancer Pt is ok for discharge from pulmonary standpoint. RANI PACHECO DO Apr 09, 2019 05:57
[2019-04-09] MEDS: RT-ADVAIR HFA 115/21 MCG PER PUFF IH SCH (07:44)
[2019-04-09] MEDS: UMECLIDINIUM BROMIDE (INCRUSE ELLIPTA) 7'S IH SCH (07:45)
--- NOTE | 2019-04-09 08:10 | Progress Note ---
Subjective Time Seen by a Provider: 08:08 Subjective/Events-last exam Patient feeling better and breathing better. Patient wants to go home. Pulmonology discharge. Patient will be discharged today. Breathing is better Objective Exam Vital Signs Date Time Temp Pulse Resp B/P (MAP) Pulse Ox O2 Delivery O2 Flow Rate FiO2 04/09/19 07:42 92 Nasal Cannula 4.00 04/09/19 03:29 36.2 77 20 119/70 (86) 94 Nasal Cannula 5.00 04/09/19 02:08 97 Nasal Cannula 4.00 04/09/19 01:00 60 04/09/19 01:00 36.6 68 20 115/76 (89) 97 Nasal Cannula 5.00 04/08/19 21:59 90 Nasal Cannula 4.00 04/08/19 20:00 90 Nasal Cannula 4.00 04/08/19 19:36 36.4 83 22 124/76 (92) 94 Nasal Cannula 5.00 04/08/19 19:00 80 04/08/19 18:17 93 Nasal Cannula 4.00 04/08/19 15:30 37.0 85 20 127/73 (91) 94 Nasal Cannula 5.00 04/08/19 14:48 92 Nasal Cannula 4.00 04/08/19 13:00 81 04/08/19 12:00 36.7 85 16 159/90 (113) 95 High Flow N/C 4.00 04/08/19 10:58 Nasal Cannula 4.00 04/08/19 10:58 Nasal Cannula 4.00 04/08/19 10:57 92 Nasal Cannula 4.00 04/08/19 08:10 Nasal Cannula 4.00 I & O 04/09/19 07:00 Intake Total 2760 ml Output Total 2725 ml Balance 35 ml Capillary Refill : Less Than 3 SecondsLess Than 3 Seconds General Appearance: No Apparent Distress, WD/WN HEENT: Normal ENT Inspection Neck: Full Range of Motion, Normal Inspection Respiratory: No Accessory Muscle Use, No Respiratory Distress, Decreased Breath Sounds Cardiovascular: Regular Rate, Rhythm, No Murmur Gastrointestinal: non tender, soft Results Lab Laboratory Tests 04/09/19 04:30 Laboratory Tests 04/09/19 04:30: White Blood Count 5.2, Red Blood Count 3.65L, Hemoglobin 10.6L, Hematocrit 33L, Mean Corpuscular Volume 90, Mean Corpuscular Hemoglobin 29, Mean Corpuscular Hemoglobin Concent 32, Red Cell Distribution Width 14.9H, Platelet Count 235, Mean Platelet Volume 8.8, Sodium Level 136, Potassium Level 3.4L, Chloride Level 94L, Carbon Dioxide Level 31, Anion Gap 11, Blood Urea Nitrogen 11, Creatinine 0.71, Estimat Glomerular Filtration Rate > 60, BUN/Creatinine Ratio 15, Glucose Level 167H, Calcium Level 8.8 Microbiology 04/05/19 MRSA Screen - Final, Complete MRSA not isolated 04/04/19 Urine Culture - Final, Complete NO GROWTH 04/04/19 Blood Culture - Preliminary, Resulted No growth Assessment/Plan Assessment/Plan Assess & Plan/Chief Complaint Right lower lobe pneumonia. Respiratory distress. COPD area Lung cancer. Seizures. . 04/07/19 oh. Right lower lobe pneumonia. Respiratory distress. COPD Hypertension. Metastatic lung cancer. . 04/08/2019. Pneumonia x-ray yesterday shows improving. Respiratory distress. COPD Hypertension. Metastatic lung disease. Patient feels 50 percent better. . 04/09/2019. Pneumonia. Respiratory distress status. COPD. Hypertension better. Metastatic lung disease. Patient to be discharged today to office on Friday Clinical Quality Measures Admission Status Admission Dx Right lower lobe pneumonia. COPD. Lung cancer with metastasis. Seizure. Febrile DVT/VTE Risk/Contraindication: Risk Factor Score Per Nursin RFS Level Per Nursing on Admit: 4+=Very High AMANDEEP GENAO DO Apr 09, 2019 08:10
[2019-04-09] MEDS ORDERED: KCL 10 MEQ TAB (MICRO K) PO NR (08:15)
[2019-04-09] MEDS: lisINopril 10 MG (PRINIVIL) TABLET PO SCH (08:17)
[2019-04-09] MEDS: amLODIPine 5 MG (NORVASC) TAB PO SCH (08:17)
[2019-04-09] MEDS: PHENYTOIN 100 MG (DILANTIN) CAP PO SCH (08:17)
[2019-04-09] MEDS: GABAPENTIN 600 MG (NEURONTIN) TAB PO SCH (08:18)
[2019-04-09 08:30] VITALS: BP 160/91
--- NOTE | 2019-04-09 09:33 | Physical Therapy Progress Note ---
Therapy Progress Note Patient states he will be leaving to go home in about an hour and due to that refuses therapy today. 1 visit REF ([id number]) LAVON LAMAS PT Apr 09, 2019 09:33
[2019-04-09] MEDS ORDERED: CEFD300C3 PO (09:39)
[2019-04-09] MEDS ORDERED: PRD10T PO (09:46)
[2019-04-09] MEDS ORDERED: RT-ALBUINH INH (10:05)
[2019-04-09 10:15] VITALS: BP 160/91
== END 2019-04-09 10:15 | disposition home or self-care (01) | DRG 871 ==
LOC: EDUNIT# 05:30 → ER 05:31 → 4TH 07:34
PROVIDERS: ADMIT Family Medicine; ATTEND Family Medicine
PROC: 5A09357 Assistance with Respiratory Ventilation, Less than 24 Consecutive Hours, Continuous Positive Airway Pressure (ICD-10-PCS; principal; 2019-04-04)
DX: A41.9 Sepsis, unspecified organism (principal); J18.9 Pneumonia, unspecified organism; C34.90 Malignant neoplasm of unspecified part of unspecified bronchus or lung; C79.51 Secondary malignant neoplasm of bone; I38 Endocarditis, valve unspecified; J43.9 Emphysema, unspecified; G47.30 Sleep apnea, unspecified; I10 Essential (primary) hypertension; E78.00 Pure hypercholesterolemia, unspecified; G62.9 Polyneuropathy, unspecified; R29.898 Other symptoms and signs involving the musculoskeletal system; M24.50 Contracture, unspecified joint; G40.909 Epilepsy, unspecified, not intractable, without status epilepticus; B91 Sequelae of poliomyelitis; Z87.891 Personal history of nicotine dependence; Z99.81 Dependence on supplemental oxygen
CPT/HCPCS: 36415; 51702; 71045; 71046; 80048; 80053; 80202; 80306; 80320; 81000; 82550; 82553; 82805; 83605; 83735; 83874; 83880; 84484; 85007; 85025; 85027; 85610; 85730; 87040; 87081; 87088; 87804; 93005; 93041; 94640; 94660; 94760; 96361; 96365; 96375

== ENCOUNTER 2019-05-17 17:02 | Observation (INO) | payer MEDICARE, MEDICAID ==
[~2019-05-17] VITALS: Ht 182.9 cm; Wt 84.2 kg
[~2019-05-17 17:02] MED LIST changes: +EZET10TA17 PO; -EZET10TA5 PO; -LAMO100T PO; +LAMO100T5 PO; +OMEP-280 PO; -OMEP20CA13 PO; +RT-ALBUINH INH
[2019-05-17] MEDS ORDERED: RT-ALBUTEROL/IPRATROPIUM 3 ML (DUONEB) VIAL INH ONE (17:30)
--- NOTE | 2019-05-17 17:47 | Diagnostic Imaging Report ---
INDICATION: Shortness of breath. EXAMINATION: Portable chest at 5:42 p.m. FINDINGS: Right IJ Port-A-Cath tip projects over the SVC. There is some atelectasis at the right lung base. Lungs are otherwise clear. There are no effusions or pneumothoraces. Heart size and pulmonary vascularity are normal. IMPRESSION: Chronic right basilar atelectasis. No acute abnormality seen. Dictated by: Dictated on workstation # [id number]
--- NOTE | 2019-05-17 17:50 | ED Respiratory ---
General Chief Complaint: Respiratory Problems Stated Complaint: SOB,FALLS Nursing Triage Note: TO ED PER W/C WITH HOME [address] GENAO OFFICE. FEMALE AT BEDSIDE REPORTS HE HAS BEEN HAVING JERKING MOVEMENTS AND INCREASE SOA SINCE FRIDAY. Source: patient, family Exam Limitations: no limitations History of Present Illness Date Seen by Provider: May 17, 2019 Time Seen by Provider: 17:32 Initial Comments 63-year-old male who was brought to the emergency room by his family for having increased shortness of air, falls, uncontrolled movement of upper and lower extremities that are causing falls for the past few days. He reports productive cough . Denies any fevers. Timing/Duration: week Associated Symptoms: cough, wheezing Allergies and Home Medications Allergies Coded Allergies: aspirin (Unverified Allergy, Mild, DOES NOT WORK WELL W/ OTHER MEDS, 10/05/18) ibuprofen (Unverified Allergy, Mild, 10/05/18) Home Medications Albuterol Sulfate 2.5 Mg/3 Ml Vial.neb, 2.5 MG NEB Q4H PRN for SHORTNESS OF BREATH, (Reported) Albuterol Sulfate 1 Puff Puff, 2 PUFF IH Q6H PRN for SHORTNESS OF BREATH, (Reported) 1 PUFF = 90 MCG Albuterol Sulfate 1 Puff Puff, 2 PUFF INH Q4H 1 PUFF = 90 MCG Prescribed by: PRIYANKA HERNANDES on 04/09/19 1005 Amlodipine Besylate 5 Mg Tablet, 5 MG PO 0800, (Reported) Atorvastatin Calcium 20 Mg Tablet, 20 MG PO 0300, (Reported) Budesonide/Formoterol Fumarate 10.2 Gm Hfa.aer.ad, 2 PUFF INH BID PRN for WHEN OUT OF ADVAIR, (Reported) Carbamazepine 200 Mg Tablet, 200 MG PO 0800,2300,0300, (Reported) Carbamazepine 200 Mg Tablet, 400 MG PO 1500, (Reported) TAKES 2 (200 MG) TABLETS Cefdinir 300 Mg Capsule, 300 MG PO BID Prescribed by: PRIYANKA HERNANDES on 04/09/19 0939 Fluticasone/Salmeterol 12 Gm Hfa.aer.ad, 1 PUFF IH BID, (Reported) Gabapentin 300 Mg Capsule, 300 MG PO 2300, (Reported) Gabapentin 600 Mg Tablet, 600 MG PO 0800,1500, (Reported) Hydrocodone/Acetaminophen 1 Each Tablet, 1 TAB PO BID PRN for PAIN-MODERATE (5- 7), (Reported) Lamotrigine 100 Mg Tablet, 100 MG PO 1500,2300, (Reported) Lamotrigine 25 Mg Tablet, 25 MG PO 1500,0300, (Reported) Melatonin 5 Mg Capsule, 5 MG PO HS, (Reported) Meloxicam 7.5 Mg Tablet, 7.5 MG PO 1500, (Reported) Omeprazole 20 Mg Capsule.dr, 20 MG PO DAILY PRN for HEARTBURN, (Reported) Phenytoin Sodium Extended 100 Mg Capsule, 200 MG PO 1500, (Reported) TAKES 2 (100 MG) CAPSULES Phenytoin Sodium Extended 100 Mg Capsule, 100 MG PO 0800,2300, (Reported) Prednisone 10 Mg Tab, 50 MG PO DAILY@0700 50 mg Day 1 40 mg Day 2 40 mg Day 3 30 mg Day 4 30 mg Day 5 20 mg Day 6 20 mg Day 7 10 mg Day 8 Prescribed by: PRIYANKA HERNANDES on 04/09/19 0946 Ropinirole HCl 0.5 Mg Tablet, 0.5 MG PO 1500, (Reported) Tiotropium [place] 1 Inh Aerp, 1 CAP IH 1500, (Reported) Patient Home Medication List Home Medication List Reviewed: Yes Review of Systems Review of Systems Constitutional: see HPI; No chills, No fever Respiratory: see HPI, cough, dyspnea on exertion, phlegm, short of breath, wheezing Musculoskeletal: see HPI, muscle twitching All Other Systems Reviewed Negative Unless Noted: Yes Past Hniwcrf-Nulzha-Vhrwqh Hx Past Med/Social Hx: Reviewed Nursing Past Med/Soc Hx Patient Social History Alcohol Use: Denies Use Recreational Drug Use: Yes (not current, 15 years ago-ETOH and PO drugs) Drug of Choice: HX OF RX DRUG ABUSE, CLAIMS NONE 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 Smoking Status: Former Smoker Type Used: Cigars, Cigarettes Former Smoker, Quit: May 01, 2017 2nd Hand Smoke Exposure: No Recent Foreign Travel: No Contact w/Someone Who Travel: No Recent Infectious Disease Expo: No Recent Hopitalizations: No Immunizations Up To Date Tetanus Booster (TDap): Less than 5yrs PED Vaccines UTD: Yes Date of Influenza Vaccine: Apr 21, 2018 Seasonal Allergies Seasonal Allergies: Yes Past Medical History Surgeries: Yes Eye Surgery, Gallbladder Respiratory: Yes Asthma, Pneumonia, Chronic Bronchitis, Sleep Apnea, COPD Currently Using CPAP: No Currently Using BIPAP: No Cardiac: Yes Heart Murmur, High Cholesterol, Hypertension, Valvular Heart Disease 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) Neuropathy, Seizure Disorder, Vertigo Reproductive Disorders: No Sexually Transmitted Disease: No HIV/AIDS: No Genitourinary: No Gastrointestinal: Yes (CHRONIC NAUSEA/VOMITING) Musculoskeletal: Yes (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 Physical Exam Vital Signs - First Documented 05/17/19 18:23 FiO2 4 Capillary Refill : Less Than 3 Seconds Height: 6'0" Weight: 174lbs. 3.0oz. 79.530502aq; 24.00 BMI Method:Stated General Appearance: WD/WN, no apparent distress HEENT: PERRL/EOMI, normal ENT inspection, TMs normal, pharynx normal Respiratory: chest non-tender, no respiratory distress, no accessory muscle use, respiratory distress, crackles, wheezing, other (throughout all lung lo) Cardiovascular: normal peripheral pulses, regular rate, rhythm, no edema, no gallop, no JVD, no murmur Gastrointestinal: normal bowel sounds, non tender, soft, no organomegaly, no pulsatile mass Extremities: normal capillary refill Neurologic/Psychiatric: alert, normal mood/affect, oriented x 3 Skin: normal color, warm/dry Focused Exam Lactate Level 05/17/19 17:42: Lactic Acid Level 1.44 Lactic Acid Level Laboratory Tests Test 05/17/19 17:42 Lactic Acid Level 1.44 MMOL/L (0.50-2.00) Procedures/Interventions Date of ETT Placement: Mar 09, 2017 Time of ETT Placement: 1811 Suture Size: 5-0 Progress/Results/Core Measures Suspected Sepsis Recent Fever Within 48 Hours: No Infection Criteria Present: Suspected New Infection New/Unexplained Altered Menta: No Sepsis Screen: No Definite Risk SIRS Temperature: Pulse: 100 Respiratory Rate: 20 Laboratory Tests 05/17/19 17:42: White Blood Count 9.2 Blood Pressure 183 /89 Mean: 120 05/17/19 17:42: Lactic Acid Level 1.44 Laboratory Tests 05/17/19 17:42: Creatinine 0.75, INR Comment 1.0, Platelet Count 232, Total Bilirubin 0.2 Results/Orders Lab Results Laboratory Tests Test 05/17/19 16:42 05/17/19 17:42 Range/Units Carbamazepine (Tegretol) Level 9.4 4.0-12.0 UG/ML White Blood Count 9.2 4.3-11.0 10^3/uL Red Blood Count 3.83 L 4.35-5.85 10^6/uL Hemoglobin 11.3 L 13.3-17.7 G/DL Hematocrit 34 L 40-54 % Mean Corpuscular Volume 88 80-99 FL Mean Corpuscular Hemoglobin 30 25-34 PG Mean Corpuscular Hemoglobin Concent 34 32-36 G/DL Red Cell Distribution Width 14.9 H 10.0-14.5 % Platelet Count 232 130-400 10^3/uL Mean Platelet Volume 8.7 7.4-10.4 FL Neutrophils (%) (Auto) 79 H 42-75 % Lymphocytes (%) (Auto) 10 L 12-44 % Monocytes (%) (Auto) 11 0-12 % Eosinophils (%) (Auto) 0 0-10 % Basophils (%) (Auto) 0 0-10 % Neutrophils # (Auto) 7.3 1.8-7.8 X 10^3 Lymphocytes # (Auto) 0.9 L 1.0-4.0 X 10^3 Monocytes # (Auto) 1.1 H 0.0-1.0 X 10^3 Eosinophils # (Auto) 0.0 0.0-0.3 10^3/uL Basophils # (Auto) 0.0 0.0-0.1 10^3/uL Prothrombin Time 13.9 12.2-14.7 SEC INR Comment 1.0 0.8-1.4 Activated Partial Thromboplast Time 38 H 24-35 SEC Sodium Level 130 L 135-145 MMOL/L Potassium Level 4.1 3.6-5.0 MMOL/L Chloride Level 94 L 98-107 MMOL/L Carbon Dioxide Level 29 21-32 MMOL/L Anion Gap 7 5-14 MMOL/L Blood Urea Nitrogen 9 7-18 MG/DL Creatinine 0.75 0.60-1.30 MG/DL Estimat Glomerular Filtration Rate > 60 BUN/Creatinine Ratio 12 Glucose Level 152 H 70-105 MG/DL Lactic Acid Level 1.44 0.50-2.00 MMOL/L Calcium Level 8.7 8.5-10.1 MG/DL Corrected Calcium 8.6 8.5-10.1 MG/DL Total Bilirubin 0.2 0.1-1.0 MG/DL Aspartate Amino Transf (AST/SGOT) 14 5-34 U/L Alanine Aminotransferase (ALT/SGPT) 13 0-55 U/L Alkaline Phosphatase 127 40-136 U/L B-Type Natriuretic Peptide 138.6 H <100.0 PG/ML Total Protein 7.0 6.4-8.2 GM/DL Albumin 4.1 3.2-4.5 GM/DL Micro Results Microbiology 05/17/19 Influenza Types A,B Antigen (VY) - Final, Complete My Orders Orders - NESTOR AVILEZ Cbc With Automated Diff (05/17/19 17:30) Comprehensive Metabolic Panel (05/17/19 17:30) BNP (05/17/19 17:30) Blood Culture (05/17/19 17:30) Ekg Tracing (05/17/19:30) O2 (05/17/19 17:30) Ed Iv/Invasive Line Start (05/17/19 17:30) Sputum Culture (05/17/19 17:30) Monitor-Rhythm Ecg Trace Only (05/17/19 17:30) Albuterol/Ipra Inhalation Soln (Duoneb I (05/17/19 17:30) Chest 1 View, Ap/Pa Only (05/17/19 17:30) Urinalysis (05/17/19 17:30) Urine Culture (05/17/19 17:30) Protime With Inr (05/17/19:30) Partial Thromboplastin Time (05/17/19 17:30) Ed Iv/Invasive Line Start (05/17/19 17:30) Vital Signs Adult Sepsis Patie Q15M (05/17/19 17:30) O2 (05/17/19 17:30) Remove Rings In Anticipation O (05/17/19 17:30) Lactic Acid Analyzer (05/17/19 17:30) Influenza A And B Antigens (05/17/19 17:30) Svn Small Volume Nebulizer (05/17/19 17:30) Albuterol Pre-Mix Nebs (Rt) (Proventil (05/17/19 18:30) Svn Small Volume Nebulizer (05/17/19 18:17) Ns Iv 1000 Ml (Sodium Chloride 0.9%) (05/17/19 18:45) Carbamazepine (Tegretol) (05/17/19 19:46) Methylprednisolone Sod Succ (Solu-Medrol (05/17/19 20:00) Medications Given in ED Current Medications Medications Dose Ordered Sig/Porfirio Route Start Time Stop Time Status Last Admin Dose Admin Albuterol Sulfate 12.5 mg ONCE ONCE INH 05/17/19 18:30 05/17/19 18:31 DC 05/17/19 18:23 12.5 MG Albuterol/ Ipratropium 3 ml ONCE ONCE INH 05/17/19 17:30 05/17/19 17:33 DC 05/17/19 17:44 3 ML Methylprednisolone Sodium Succinate 125 mg ONCE ONCE IVP 05/17/19 20:00 05/17/19 20:01 DC 05/17/19 20:25 125 MG Vital Signs/I&O 05/17/19 05/17/19 05/17/19 05/17/19 17:04 17:04 17:44 18:23 Temp 37.4 Pulse 100 Resp 20 B/P (MAP) 183/89 (120) Pulse Ox 96 97 97 O2 Delivery Nasal Cannula Nasal Cannula Nasal Cannula Nasal Cannula O2 Flow Rate 4.00 4.00 4.00 FiO2 4 Capillary Refill : Less Than 3 Seconds Blood Pressure Mean: 120 Progress Note : Time: 19:42 Progress Note I have seen and evaluated the patient. I've informed him of his laboratory, imaging, EKG studies. I have given the patient an hour-long albuterol treatment with minimal improvement and have discussed the case with Dr. Genao and he agrees to accept the patient for COPD exacerbation. He recommends giving the patient 40 mg of Solu-Medrol every 6 hours and breathing treatments throughout the night. Ordering a Tegretol level. And resuming the patient's home medications. Patient agrees with plans of admission. Dr. Bernal will be consult in the morning. ECG Initial ECG Impression Date: May 17, 2019 Initial ECG Impression Time: 18:17 Initial ECG Rate: 77 Initial ECG Rhythm: Normal Sinus Initial ECG Intervals: Normal Initial ECG Impression: Normal Initial ECG Comparisson: Unchanged Departure Communication (Admissions) Time/Spoke to Admitting Phy: 19:42 Dr. Genao Impression Primary Impression: COPD exacerbation Disposition: HOME, SELF-CARE Condition: Stable/Unchanged Admissions Decision to Admit Reason: Admit from ER (General) Decision to Admit/Date: May 17, 2019 Time/Decision to Admit Time: 20:00 Departure-Patient Inst. Referrals: AMANDEEP GENAO DO (PCP/Family) Primary Care Physician NESTOR AVILEZ May 17, 2019 17:50
[2019-05-17 17:53] LABS: BASOPHILS % (AUTO) 0 % (0-10); EOSINOPHILS % (AUTO) 0 % (0-10); HEMATOCRIT 34 % (40-54); HEMOGLOBIN 11.3 G/DL (13.3-17.7); LYMPHOCYTES # (AUTO) 0.9 X 10^3 (1.0-4.0); LYMPHOCYTES % (AUTO) 10 % (12-44); MEAN CORPUSCULAR HEMOGLOBIN 30 PG (25-34); MEAN CORPUSCULAR HGB CONC 34 G/DL (32-36); MEAN CORPUSCULAR VOLUME 88 FL (80-99); MEAN PLATELET VOLUME 8.7 FL (7.4-10.4); MONOCYTES # (AUTO) 1.1 X 10^3 (0.0-1.0); MONOCYTES % (AUTO) 11 % (0-12); NEUTROPHILS # (AUTO) 7.3 X 10^3 (1.8-7.8); NEUTROPHILS % (AUTO) 79 % (42-75); PLATELET COUNT 232 10^3/uL (130-400); RED CELL DISTRIBUTION WIDTH 14.9 % (10.0-14.5); WHITE BLOOD COUNT 9.2 10^3/uL (4.3-11.0)
[2019-05-17 18:03] LABS: PROTHROMBIN TIME PATIENT 13.9 SEC (12.2-14.7)
[2019-05-17 18:15] LABS: ALANINE AMINOTRANSFERASE 13 U/L (0-55); ALBUMIN 4.1 GM/DL (3.2-4.5); ALKALINE PHOSPHATASE 127 U/L (40-136); BILIRUBIN,TOTAL 0.2 MG/DL (0.1-1.0); BUN/CREATININE RATIO 12; CALCIUM 8.7 MG/DL (8.5-10.1); CARBON DIOXIDE 29 MMOL/L (21-32); CHLORIDE 94 MMOL/L (98-107); CREATININE SERUM 0.75 MG/DL (0.60-1.30); GFR ESTIMATED > 60; GLUCOSE 152 MG/DL (70-105); POTASSIUM 4.1 MMOL/L (3.6-5.0); SODIUM 130 MMOL/L (135-145)
[2019-05-17] MEDS ORDERED: RT-ALBUTEROL SULF 2.5 MG/3 ML PRE-MIX VIAL INH ONE (18:30)
--- NOTE | 2019-05-17 18:39 | NUR ---
ROOM 1HOUR LONG DUONEB GOING PATIENT STATES IS FEELING BETTER.
[2019-05-17] MEDS ORDERED: NS IV 1000 ML 1,000 ML IV SCH (18:45)
--- NOTE | 2019-05-17 18:55 | NUR ---
REPORT TO GIOVANNI STRONG
[2019-05-17] MEDS ORDERED: methylPREDNISolone 125 MG (Solu-MEDROL) VIAL IVP ONE (20:00)
[2019-05-17 21:15] LABS: BILIRUBIN,URINE NEGATIVE (NEGATIVE); CLARITY,URINE CLEAR; COLOR,URINE YELLOW; GLUCOSE, URINE (UA) NEGATIVE (NEGATIVE); KETONES,URINE NEGATIVE (NEGATIVE); LEUKOCYTE ESTERASE ,URINE NEGATIVE (NEGATIVE); NITRITE,URINE NEGATIVE (NEGATIVE); PROTEIN,URINE NEGATIVE (NEGATIVE)
--- NOTE | 2019-05-17 21:20 | NUR ---
CR QUIJANO admitted to room 418-1, with an admitting diagnosis of COPD Exacerbation, on 05/17/19 from ED via wheelchair, accompanied by staff.CR QUIJANO introduced to surroundings, call light, bed controls, phone, TV, temperature control, lights, meal times, smoking policy, visitor policy, side rail policy, bathrooms and showers. Patient Rights given to patient in the handbook. CR QUIJANO verbalizes understanding that [facility] is not responsible for the loss or damage to any personal effects or valuables that are kept in the patients posession during their hospitalization.
[2019-05-17 21:21] LABS: BACTERIA,URINE TRACE /HPF; SQUAMOUS EPITHELIAL CELL,UR RARE /HPF; WBC,URINE RARE /HPF
[2019-05-17 21:24] VITALS: BP 170/87
[2019-05-17] MEDS: NS IV 1000 ML 1,000 ML IV SCH (22:10)
[2019-05-17] MEDS: RT-ALBUTEROL SULF 2.5 MG/3 ML PRE-MIX VIAL IH SCH (22:19)
--- NOTE | 2019-05-17 22:20 | NUR ---
Called Dr. Feng and reviewed pt's meds since pt insist on taking his meds. Reviewed timing and dosage with Dr. Feng. Received orders to start his home meds. Will follow order.
[2019-05-17] MEDS ORDERED: ENOXAPARIN 40 MG/0.4 ML (LOVENOX) SYR ONE (23:14)
[2019-05-17] MEDS: ENOXAPARIN 40 MG/0.4 ML (LOVENOX) SYR SC SCH (23:26)
[2019-05-17] MEDS: carBAMazepine 200 MG (TEGretol) TAB PO SCH (23:47)
[2019-05-17] MEDS: PHENYTOIN 100 MG (DILANTIN) CAP PO SCH (23:47)
[2019-05-17] MEDS: GABAPENTIN 300 MG (NEURONTIN) CAP PO SCH (23:47)
[2019-05-18 00:29] VITALS: BP 158/80
[2019-05-18] MEDS: RT-ALBUTEROL SULF 2.5 MG/3 ML PRE-MIX VIAL IH SCH ×6 (01:45→22:39)
[2019-05-18] MEDS: lamoTRIgine 25 MG (LaMICtal) TAB PO SCH ×2 (03:02→15:17)
[2019-05-18] MEDS: methylPREDNISolone 40 MG/ML (Solu-MEDROL) VIAL IV SCH ×4 (03:02→20:23)
[2019-05-18] MEDS: carBAMazepine 200 MG (TEGretol) TAB PO SCH ×4 (03:02→23:03)
[2019-05-18 04:00] VITALS: BP 166/72
[2019-05-18] MEDS: lisINopril 20 MG (PRINIVIL) TABLET PO SCH (05:28)
[2019-05-18 06:19] LABS: BASOPHILS % (AUTO) 0 % (0-10); EOSINOPHILS % (AUTO) 0 % (0-10); HEMATOCRIT 34 % (40-54); HEMOGLOBIN 11.2 G/DL (13.3-17.7); LYMPHOCYTES # (AUTO) 0.4 X 10^3 (1.0-4.0); LYMPHOCYTES % (AUTO) 4 % (12-44); MEAN CORPUSCULAR HEMOGLOBIN 29 PG (25-34); MEAN CORPUSCULAR HGB CONC 33 G/DL (32-36); MEAN CORPUSCULAR VOLUME 89 FL (80-99); MEAN PLATELET VOLUME 8.7 FL (7.4-10.4); MONOCYTES # (AUTO) 0.5 X 10^3 (0.0-1.0); MONOCYTES % (AUTO) 5 % (0-12); NEUTROPHILS # (AUTO) 8.1 X 10^3 (1.8-7.8); NEUTROPHILS % (AUTO) 91 % (42-75); PLATELET COUNT 219 10^3/uL (130-400); RED CELL DISTRIBUTION WIDTH 15.1 % (10.0-14.5); WHITE BLOOD COUNT 8.9 10^3/uL (4.3-11.0)
[2019-05-18 06:36] LABS: ALANINE AMINOTRANSFERASE 12 U/L (0-55); ALBUMIN 4.2 GM/DL (3.2-4.5); ALKALINE PHOSPHATASE 140 U/L (40-136); BILIRUBIN,TOTAL 0.2 MG/DL (0.1-1.0); BUN/CREATININE RATIO 11; CALCIUM 9.2 MG/DL (8.5-10.1); CARBON DIOXIDE 29 MMOL/L (21-32); CHLORIDE 99 MMOL/L (98-107); GFR ESTIMATED > 60; GLUCOSE 146 MG/DL (70-105); POTASSIUM 4.5 MMOL/L (3.6-5.0); SODIUM 136 MMOL/L (135-145); TOTAL PROTEIN 7.2 GM/DL (6.4-8.2)
[2019-05-18 08:00] VITALS: BP 135/81
--- NOTE | 2019-05-18 08:13 | History & Physical ---
History of Present Illness History of Present Illness Reason for visit/HPI Patient seen in the office yesterday. Patient had shortness of breath. Patient had jerking movements when he fall back or Patient sent out to the emergency room. Patient had COPD with acute exacerbation and hyponatremia and falling and having jerking movements. Patient admitted for observation. Patient has history of COPD, lung cancer, COPD, Date of Admission May 17, 2019 at 20:00 Time Seen by a Provider: 08:03 I consulted on this patient on 05/18/19 08:03 Attending Physician Micky Genao DO Admitting Physician Micky Genao DO Consult Allergies and Home Medications Allergies Coded Allergies: aspirin (Unverified Allergy, Mild, DOES NOT WORK WELL W/ OTHER MEDS, 10/05/18) ibuprofen (Unverified Allergy, Mild, 10/05/18) Home Medications Albuterol Sulfate 2.5 Mg/3 Ml Vial.neb, 2.5 MG NEB Q4H PRN for SHORTNESS OF BREATH, (Reported) Albuterol Sulfate 1 Puff Puff, 2 PUFF IH Q6H PRN for SHORTNESS OF BREATH, (Reported) 1 PUFF = 90 MCG Albuterol Sulfate 1 Puff Puff, 2 PUFF INH Q4H 1 PUFF = 90 MCG Prescribed by: PRIYANKA HERNANDES on 04/09/19 1005 Amlodipine Besylate 5 Mg Tablet, 5 MG PO 0800, (Reported) Atorvastatin Calcium 20 Mg Tablet, 20 MG PO 0300, (Reported) Budesonide/Formoterol Fumarate 10.2 Gm Hfa.aer.ad, 2 PUFF INH BID PRN for WHEN OUT OF ADVAIR, (Reported) Carbamazepine 200 Mg Tablet, 200 MG PO 0800,2300,0300, (Reported) Carbamazepine 200 Mg Tablet, 400 MG PO 1500, (Reported) TAKES 2 (200 MG) TABLETS Cefdinir 300 Mg Capsule, 300 MG PO BID Prescribed by: PRIYANKA HERNANDES on 04/09/19 0939 Fluticasone/Salmeterol 12 Gm Hfa.aer.ad, 1 PUFF IH BID, (Reported) Gabapentin 300 Mg Capsule, 300 MG PO 2300, (Reported) Gabapentin 600 Mg Tablet, 600 MG PO 0800,1500, (Reported) Hydrocodone/Acetaminophen 1 Each Tablet, 1 TAB PO BID PRN for PAIN-MODERATE (5- 7), (Reported) Lamotrigine 100 Mg Tablet, 100 MG PO 1500,2300, (Reported) Lamotrigine 25 Mg Tablet, 25 MG PO 1500,0300, (Reported) Melatonin 5 Mg Capsule, 5 MG PO HS, (Reported) Meloxicam 7.5 Mg Tablet, 7.5 MG PO 1500, (Reported) Omeprazole 20 Mg Capsule.dr, 20 MG PO DAILY PRN for HEARTBURN, (Reported) Phenytoin Sodium Extended 100 Mg Capsule, 200 MG PO 1500, (Reported) TAKES 2 (100 MG) CAPSULES Phenytoin Sodium Extended 100 Mg Capsule, 100 MG PO 0800,2300, (Reported) Prednisone 10 Mg Tab, 50 MG PO DAILY@0700 50 mg Day 1 40 mg Day 2 40 mg Day 3 30 mg Day 4 30 mg Day 5 20 mg Day 6 20 mg Day 7 10 mg Day 8 Prescribed by: PRIYANKA HERNANDES on 04/09/19 0946 Ropinirole HCl 0.5 Mg Tablet, 0.5 MG PO 1500, (Reported) Tiotropium [place] 1 Inh Aerp, 1 CAP IH 1500, (Reported) Patient Home Medication List Home Medication List Reviewed: Yes Past Wgnymrz-Ozdlzb-Aokhpa Hx Past Med/Social Hx: Reviewed Nursing Past Med/Soc Hx Patient Social History Marrital Status: cohabiting Alcohol Use: Denies Use Recreational Drug Use: Yes (not current, 15 years ago-ETOH and PO drugs) Drug of Choice: HX OF RX DRUG ABUSE, CLAIMS NONE 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 Smoking Status: Former Smoker Former Smoker, Quit: May 01, 2017 Type Used: Cigars, Cigarettes 2nd Hand Smoke Exposure: No Recent Foreign Travel: No Contact w/other who traveled: No Recent Hopitalizations: No Recent Infectious Disease Expo: No Immunizations Up To Date Tetanus Booster (TDap): Less than 5yrs Pediatric: Yes Date of Influenza Vaccine: Apr 21, 2018 Seasonal Allergies Seasonal Allergies: Yes Past Medical History Surgeries: Eye Surgery, Gallbladder Respiratory: COPD, Emphysema, Pneumonia Currently Using CPAP: No Currently Using BIPAP: No Cardiac: Heart Murmur, High Cholesterol, Hypertension, Valvular Heart Disease Neurological: Neuropathy, Seizure Disorder, Vertigo Reproductive: No Sexually Transmitted Disease: No HIV/AIDS: No Musculoskeletal: Arthritis, Fractures Loss of Vision: Denies Hearing Impairment: Denies Cancer: Bone, Lung Did You Recieve Any Treatments: Yes What Type of Treatment Did You: Chemotherapy History of Blood Disorders: No Adverse Reaction to Blood [place]: No Family History Reviewed Nursing Family Hx Diabetes mellitus 19 MOTHER Hypercholesterolemia 19 FATHER Hypertension 19 FATHER Heart Disease Limited to records review due to clinical condition. Review of Systems Constitutional: weakness EENTM: no symptoms reported Respiratory: dyspnea on exertion, short of breath Cardiovascular: no symptoms reported Gastrointestinal: no symptoms reported Genitourinary: no symptoms reported Physical Exam Vital Signs Vital Signs - First Documented 05/17/19 18:23 FiO2 4 Capillary Refill : Less Than 3 SecondsLess Than 3 Seconds Height, Weight, BMI Height: 6'0" Weight: 174lbs. 3.0oz. 79.938683dp; 24.78 BMI Method:Stated General Appearance: No Apparent Distress, Thin Eyes: Bilateral Eye Normal Inspection HEENT: Normal ENT Inspection Neck: Full Range of Motion, Normal Inspection Respiratory: No Accessory Muscle Use, No Respiratory Distress, Decreased Breath Sounds Cardiovascular: Regular Rate, Rhythm, No Murmur Gastrointestinal: Normal Bowel Sounds Assessment/Plan Assessment and Plan COPD with acute exacerbation. Hyponatremia. History of lung cancer. History of seizures. Falling recently. Jerking movements causing 4. Short of the air. Admission Diagnosis Admission Status: Observation Clinical Quality Measures DVT/VTE Risk/Contraindication: Risk Factor Score Per Nursin RFS Level Per Nursing on Admit: 4+=Very High MICKY GENAO DO May 18, 2019 08:13
[2019-05-18 08:14] LABS: ANISOCYTOSIS SLIGHT; LYMPHOCYTES % (MANUAL) 5 %; MONOCYTES % (MANUAL) 4 %; NEUTROPHILS % (MANUAL) 91 %; POLYCHROMASIA SLIGHT
[2019-05-18] MEDS: PHENYTOIN 100 MG (DILANTIN) CAP PO SCH ×3 (08:50→23:03)
[2019-05-18] MEDS: GABAPENTIN 600 MG (NEURONTIN) TAB PO SCH ×2 (08:51→15:17)
[2019-05-18] MEDS: amLODIPine 5 MG (NORVASC) TAB PO SCH (08:51)
--- NOTE | 2019-05-18 11:00 | NUR ---
SPOKE WITH THE PT WELL GOING THRU THE EXT MED HISTORY TO COMPLETE THE MED REC. PT HAS A LIST ON HIS PHONE OF HIS MEDS AND WHEN HE TAKES THEM- IT IS VERY DETAILED AND I WILL LIST THEM BELOW. LAMOTRIGINE: 25MG @ 0300 100MG +25MG @ 1500 100MG @ 2300 CARBAMAZEPINE 200MMG @ 0300 400MG @ 0800 400MG @ 1500 200MG @ 2300 PHENYTOIN 100MMG @ 0800 200MG @ 1500 100MG @ 2300 OTC MEDS: MELATONIN
[2019-05-18] MEDS: NS IV 1000 ML 1,000 ML IV SCH (11:31)
[2019-05-18 12:00] VITALS: BP 144/77
--- NOTE | 2019-05-18 13:10 | Pulmonary Consultation ---
History of Present Illness History of Present Illness Date Seen by Provider: May 19, 2019 Time Seen by Provider: 11:20 Date of Admission History of Present Illness 63yo with hx of lung cancer and hx of severe oxygen dependent COPD admitted secondary to worsening SOB. He was diagnosed with COPDAE. PT has had multiple hospitalizations. He has had similar episodes in the past. Allergies and Home Medications Allergies Coded Allergies: aspirin (Unverified Allergy, Mild, DOES NOT WORK WELL W/ OTHER MEDS, 10/05/18) ibuprofen (Unverified Allergy, Mild, 10/05/18) Home Medications Albuterol Sulfate 2.5 Mg/3 Ml Vial.neb, 2.5 MG NEB Q4H PRN for SHORTNESS OF BREATH, (Reported) Albuterol Sulfate 1 Puff Puff, 2 PUFF IH Q6H PRN for SHORTNESS OF BREATH, (Reported) Amlodipine Besylate 5 Mg Tablet, 5 MG PO 0800, (Reported) Atorvastatin Calcium 20 Mg Tablet, 20 MG PO 0300, (Reported) Budesonide/Formoterol Fumarate 10.2 Gm Hfa.aer.ad, 2 PUFF INH BID PRN for WHEN OUT OF ADVAIR, (Reported) Carbamazepine 200 Mg Tablet, 200 MG PO 0300,2300, (Reported) Carbamazepine 200 Mg Tablet, 400 MG PO 0800,1500, (Reported) TAKES 2 (200 MG) TABLETS Fluticasone/Salmeterol 12 Gm Hfa.aer.ad, 1 PUFF IH BID, (Reported) Gabapentin 300 Mg Capsule, 300 MG PO 2300, (Reported) Gabapentin 600 Mg Tablet, 600 MG PO 0800,1500, (Reported) Hydrocodone/Acetaminophen 1 Each Tablet, 1 TAB PO BID PRN for PAIN-MODERATE (5- 7), (Reported) Lamotrigine 100 Mg Tablet, 100 MG PO 1500,2300, (Reported) AT 1500 PT TAKES 100MG + 25MG TO EQUAL 125MG AT 0300 PT TAKES JUST 25MG Lamotrigine 25 Mg Tablet, 25 MG PO 0300,1500, (Reported) AT 1500 PT TAKES 100MG +25MG TO EQUAL 125MG AT 2300 PT TAKES JUST A 100MG TAB Melatonin 5 Mg Capsule, 5 MG PO HS, (Reported) Meloxicam 7.5 Mg Tablet, 7.5 MG PO 1500, (Reported) Omeprazole 20 Mg Capsule.dr, 20 MG PO DAILY PRN for HEARTBURN, (Reported) Phenytoin Sodium Extended 100 Mg Capsule, 200 MG PO 0800,1500, (Reported) TAKES 2 (100 MG) CAPSULES Phenytoin Sodium Extended 100 Mg Capsule, 100 MG PO 2300, (Reported) Ropinirole HCl 0.5 Mg Tablet, 0.5 MG PO 1500, (Reported) Tiotropium Follett 1 Inh Aerp, 1 CAP IH 1500, (Reported) Past Zgmqodf-Uijkqg-Efzzcq Hx Past Med/Social Hx: Reviewed Nursing Past Med/Soc Hx Patient Social History Alcohol Use: Denies Use Recreational Drug Use: Yes (not current, 15 years ago-ETOH and PO drugs) Drug of Choice: HX OF RX DRUG ABUSE, CLAIMS NONE 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 Smoking Status: Former Smoker Type Used: Cigars, Cigarettes Former Smoker, Quit: May 01, 2017 2nd Hand Smoke Exposure: No Recent Foreign Travel: No Contact w/Someone Who Travel: No Recent Infectious Disease Expo: No Recent Hopitalizations: No Physical Abuse: No Sexual Abuse: No Mistreated: No Fear: No Immunizations Up To Date Tetanus Booster (TDap): Less than 5yrs PED Vaccines UTD: Yes Date of Influenza Vaccine: Apr 21, 2018 Seasonal Allergies Seasonal Allergies: Yes Past Medical History Surgeries: Yes Eye Surgery, Gallbladder Respiratory: Yes Asthma, Pneumonia, Chronic Bronchitis, Sleep Apnea, COPD Currently Using CPAP: No Currently Using BIPAP: No Cardiac: Yes Heart Murmur, High Cholesterol, Hypertension, Valvular Heart Disease 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) Neuropathy, Seizure Disorder, Vertigo Reproductive Disorders: No Sexually Transmitted Disease: No HIV/AIDS: No Genitourinary: No Gastrointestinal: Yes (CHRONIC NAUSEA/VOMITING) Musculoskeletal: Yes (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 Review of Systems Time Seen by Provider: 11:26 Sepsis Event Evaluation Height, Weight, BMI Height: 6'0" Weight: 174lbs. 3.0oz. 79.228602vo; 24.78 BMI Method:Stated Exam Exam Vital Signs Date Time Temp Pulse Resp B/P (MAP) Pulse Ox O2 Delivery O2 Flow Rate FiO2 05/18/19 12:00 36.6 74 22 144/77 (99) 95 Nasal Cannula 4.00 05/18/19 08:02 97 Nasal Cannula 4.00 05/18/19 08:00 36.7 71 22 135/81 (99) 97 Nasal Cannula 4.00 05/18/19 06:53 93 Nasal Cannula 4.00 05/18/19 04:00 36.3 73 20 166/72 (103) 92 Nasal Cannula 4.00 05/18/19 01:45 94 Nasal Cannula 4.00 05/18/19 00:29 37.4 80 20 158/80 (106) 95 Nasal Cannula 4.00 05/17/19 22:19 95 Nasal Cannula 4.00 05/17/19 21:50 92 Nasal Cannula 4.00 05/17/19 21:24 37.6 82 24 170/87 95 Nasal Cannula 4.00 05/17/19 21:15 37.4 80 20 159/88 (99) 97 Room Air 4.00 05/17/19 19:17 37.4 84 20 147/76 97 Room Air 4.00 05/17/19 18:23 97 Nasal Cannula 4 05/17/19 17:44 97 Nasal Cannula 4.00 05/17/19 17:04 Nasal Cannula 4.00 05/17/19 17:04 37.4 100 20 183/89 (120) 96 Nasal Cannula 4.00 I & O 05/18/19 07:00 Intake Total 350 ml Balance 350 ml Height & Weight Height: 6'0" Weight: 174lbs. 3.0oz. 79.812594xl; 24.78 BMI Method:Stated General Appearance: No Apparent Distress, Thin HEENT: Normal ENT Inspection Neck: Full Range of Motion, Normal Inspection Respiratory: No Accessory Muscle Use, No Respiratory Distress, Decreased Breath Sounds Cardiovascular: Regular Rate, Rhythm, No Murmur Capillary Refill: Less Than 3 Seconds Gastrointestinal: normal bowel sounds, non tender, soft, no organomegaly, no pulsatile mass Neurologic/Psychiatric: Alert Skin: Normal Color, Warm/Dry Lymphatic: No Adenopathy Results Lab Laboratory Tests 05/17/19 17:42 05/18/19 06:10 Assessment/Plan Assessment/Plan - RANI PACHECO DO May 18, 2019 13:10
--- NOTE | 2019-05-18 13:23 | Physical Therapy Evaluation ---
PT Evaluation-General Medical Diagnosis Admission Date May 17, 2019 at 20:00 Medical Diagnosis: COPD with exacerbation Onset Date: May 17, 2019 Therapy Diagnosis Therapy Diagnosis: debility Height/Weight Height (Feet): 6 Height (Inches): 0 Weight (Pounds): 174 Weight (Ounces): 3.0 Precautions Precautions/Isolations: Fall Prevention, Standard Precautions Referral Physician: Jung Reason for Referral: Evaluation/Treatment Medical History Pertinent Medical History: Arthritis, COPD, Heart Failure, HTN, Neuropathy, Post Polio Syndrome, Smoking Additional Medical History Asthma, Valvular Heart Disease, Seizure Disorder, Vertigo, Bone and Lung Cancer. Current History Patient presented to [facility] with family with respiratory problems and uncontrolled body movements. Reviewed History: Yes Social History Home: Single Level Current Living Status: Alone Prior Prior Level of Function SCALE: Activities may be completed with or without assistive devices. 3-Gcnvrbnmpa-ydrpnig completes the activity by him/herself with no assistance from a helper. 5-Set-up or Clean-up Assistance-helper sets up or cleans up; patient completes activity. [place] assists only prior to or following the activity. 4-Supervision or Touching Assistance-helper provides verbal cues and/or touching/steadying and/or contact guard assistance as patient completes activity. Assistance may be provided throughout the activity or intermittently. 3-Partial/Moderate Assistance-helper does LESS THAN HALF the effort. [place] lifts, holds or supports trunk or limbs, but provides less than half the effort. 2-Substantial/Maximal Assistance-helper does MORE THAN HALF the effort. [place] lifts or holds trunk or limbs and provides more than half the effort. 0-Axwbkhthi-iybpej does ALL the effort. Patient does none of the effort to complete the activity. Or, the assistance of 2 or more helpers is required for the patient to complete the activity. If activity was not attempted, code reason: 7-Patient Refused. 9-Not Applicable-not attempted and the patient did not perform the activity before the current illness, exacerbation or injury. 10-Not Attempted due to Environmental Limitations-(lack of equipment, weather restraints, etc.). 88-Not Attempted due to Medical Conditions or Safety Concerns. Bed Mobility: 6 Transfers (B,C,W/C): 6 Gait: 6 Indoor Mobility (Ambulation): Independent PT Evaluation-Current Subjective Patient is agreeable to therapy under his terms. Patient refuses to use walker and will not allow a gait belt. Patient wants to push his own IV pole and he does not want therapy to touch him. Objective Patient Orientation: Person, Place, Time, Situation ROM/Strength ROM Lower Extremities WFL BLE Strength Lower Extremities WFL BLE Integumentary/Posture Integumentary See nursing notes. Bowel Incontinence: No Bladder Incontinence: No Neuromuscular (Tone, Coordination, Reflexes) Grossly intact. Sensory Vision: Functional Hearing: Functional Sensation Right Lower Extremit: Impaired Sensation Left Lower Extremity: Impaired Transfers Roll Left to Right (QC): 6 Sit to Lying (QC): 6 Lying to Sitting/Side of Bed(Q: 6 Sit to Stand (QC): 6 Gait Does the Patient Walk?: Yes Mode of Locomotion: Walk Anticipated Mode of Locomotion: Walk Walk 10 feet (QC): 6 Walk 50 ft with 2 Turns(QC): 6 Walk 150 ft (QC): 6 Distance: 150' Gait Assistive Device: None Comments/Gait Description Patient is unsteady during ambulation and at times sways side to side. Patient refuses to use walker and will not a allow a gait belt around him. Patient wants to push his own IV pole and does not want therapist to touch him or "hover" over him while he is walking. Balance Sitting Static: Good Sitting Dynamic: Good Standing Static: Fair Standing Dynamic: Normal Assessment/Needs Patient is unsteady during ambulation, refuses to use a walker and will not allow a gait belt around him. Patient insists on pushing his own IV pole and doesn't want therapy to touch him or "hover" him while he is walking. Due to patient's noncompliance, no skilled PT indicated. Rehab Potential: Guarded PT Plan Problem List Problem List: Activity Tolerance, Safety, Balance, Gait, Transfer Treatment/Plan Treatment Plan: Discontinue PT Treatment Duration: May 18, 2019 Frequency: 1 time per week Estimated Hrs Per Day: .25 hour per day Patient and/or Family Agrees t: Yes Safety Risks/Education Patient Education: Safety Issues Teaching Recipient: Patient Teaching Methods: Discussion Response to Teaching: Reinforcement Needed Discharge Recommendations Therapy Discharge Recommendati: Home & Family Time/GCodes Time In: 1300 Time Out: 1315 Total Billed Treatment Time: 15 Total Billed Treatment 1 visit EVL 15 LAVON LAMAS PT May 18, 2019 13:23
[2019-05-18] MEDS: MELOXICAM 7.5 MG (MOBIC) TABLET PO SCH (15:17)
[2019-05-18 16:00] VITALS: BP 122/75
[2019-05-18 20:00] VITALS: BP 129/75
[2019-05-18] MEDS: GABAPENTIN 300 MG (NEURONTIN) CAP PO SCH (23:02)
[2019-05-18] MEDS: ENOXAPARIN 40 MG/0.4 ML (LOVENOX) SYR SC SCH (23:03)
[2019-05-19] VITALS: BP 145/88
[2019-05-19] MEDS: NS IV 1000 ML 1,000 ML IV SCH ×2 (00:50→13:33)
[2019-05-19] MEDS: methylPREDNISolone 40 MG/ML (Solu-MEDROL) VIAL IV SCH ×3 (02:20→13:32)
[2019-05-19] MEDS: RT-ALBUTEROL SULF 2.5 MG/3 ML PRE-MIX VIAL IH SCH ×4 (03:03→14:58)
[2019-05-19] MEDS: lisINopril 20 MG (PRINIVIL) TABLET PO SCH ×2 (03:27→07:43)
[2019-05-19] MEDS: carBAMazepine 200 MG (TEGretol) TAB PO SCH ×3 (03:27→15:13)
[2019-05-19] MEDS: lamoTRIgine 25 MG (LaMICtal) TAB PO SCH (03:27)
[2019-05-19 04:00] VITALS: BP 158/83
[2019-05-19 04:55] LABS: BASOPHILS % (AUTO) 0 % (0-10); EOSINOPHILS % (AUTO) 0 % (0-10); HEMATOCRIT 33 % (40-54); HEMOGLOBIN 10.8 G/DL (13.3-17.7); LYMPHOCYTES # (AUTO) 0.4 X 10^3 (1.0-4.0); LYMPHOCYTES % (AUTO) 6 % (12-44); MEAN CORPUSCULAR HEMOGLOBIN 29 PG (25-34); MEAN CORPUSCULAR HGB CONC 33 G/DL (32-36); MEAN CORPUSCULAR VOLUME 90 FL (80-99); MEAN PLATELET VOLUME 9.3 FL (7.4-10.4); MONOCYTES # (AUTO) 0.6 X 10^3 (0.0-1.0); MONOCYTES % (AUTO) 8 % (0-12); NEUTROPHILS # (AUTO) 6.3 X 10^3 (1.8-7.8); NEUTROPHILS % (AUTO) 87 % (42-75); PLATELET COUNT 221 10^3/uL (130-400); RED CELL DISTRIBUTION WIDTH 15.1 % (10.0-14.5); WHITE BLOOD COUNT 7.3 10^3/uL (4.3-11.0)
[2019-05-19 05:14] LABS: ALANINE AMINOTRANSFERASE 18 U/L (0-55); ALBUMIN 3.9 GM/DL (3.2-4.5); ALKALINE PHOSPHATASE 126 U/L (40-136); BILIRUBIN,TOTAL 0.3 MG/DL (0.1-1.0); BUN/CREATININE RATIO 13; CALCIUM 8.9 MG/DL (8.5-10.1); CARBON DIOXIDE 25 MMOL/L (21-32); CHLORIDE 99 MMOL/L (98-107); CREATININE SERUM 0.72 MG/DL (0.60-1.30); GFR ESTIMATED > 60; GLUCOSE 138 MG/DL (70-105); POTASSIUM 4.5 MMOL/L (3.6-5.0); SODIUM 135 MMOL/L (135-145); TOTAL PROTEIN 6.6 GM/DL (6.4-8.2)
[2019-05-19] MEDS: PHENYTOIN 100 MG (DILANTIN) CAP PO SCH ×2 (07:40→15:12)
[2019-05-19] MEDS: amLODIPine 5 MG (NORVASC) TAB PO SCH (07:43)
[2019-05-19] MEDS: GABAPENTIN 600 MG (NEURONTIN) TAB PO SCH ×2 (07:46→15:24)
--- NOTE | 2019-05-19 07:57 | Progress Note ---
Subjective Time Seen by a Provider: 07:52 Subjective/Events-last exam Patient refused help from physical therapy yesterday. Patient wants to go home today. Patient feels his breathing good enough. Patient unhappy this morning Focused Exam Lactate Level 05/17/19 17:42: Lactic Acid Level 1.44 Objective Exam Vital Signs Date Time Temp Pulse Resp B/P (MAP) Pulse Ox O2 Delivery O2 Flow Rate FiO2 05/19/19 07:39 96 Nasal Cannula 4.00 05/19/19 04:00 36.8 68 20 158/83 (108) 93 Nasal Cannula 4.00 05/19/19 03:04 96 Nasal Cannula 4.00 05/19/19 00:00 36.6 67 20 145/88 (107) 96 Nasal Cannula 4.00 05/18/19 22:40 95 Nasal Cannula 4.00 05/18/19 20:00 37.1 67 17 129/75 (93) 97 Nasal Cannula 4.00 05/18/19 20:00 97 Nasal Cannula 4.00 05/18/19 19:16 97 Nasal Cannula 4.00 05/18/19 16:00 36.6 62 20 122/75 (91) 97 Nasal Cannula 4.00 05/18/19 15:50 36.6 05/18/19 13:52 95 Nasal Cannula 4.00 05/18/19 12:00 36.6 74 22 144/77 (99) 95 Nasal Cannula 4.00 05/18/19 08:02 97 Nasal Cannula 4.00 05/18/19 08:00 36.7 71 22 135/81 (99) 97 Nasal Cannula 4.00 I & O 05/19/19 07:00 Intake Total 5260 ml Balance 5260 ml Capillary Refill : Less Than 3 SecondsLess Than 3 Seconds General Appearance: No Apparent Distress, WD/WN HEENT: Normal ENT Inspection Neck: Full Range of Motion, Normal Inspection Respiratory: No Accessory Muscle Use, No Respiratory Distress, Decreased Breath Sounds Cardiovascular: Regular Rate, Rhythm, No Murmur Gastrointestinal: non tender, soft Results Lab Laboratory Tests 05/19/19 04:45 Laboratory Tests 05/19/19 04:45: White Blood Count 7.3, Red Blood Count 3.70L, Hemoglobin 10.8L, Hematocrit 33L, Mean Corpuscular Volume 90, Mean Corpuscular Hemoglobin 29, Mean Corpuscular Hemoglobin Concent 33, Red Cell Distribution Width 15.1H, Platelet Count 221, Mean Platelet Volume 9.3, Neutrophils (%) (Auto) 87H, Lymphocytes (%) (Auto) 6L, Monocytes (%) (Auto) 8, Eosinophils (%) (Auto) 0, Basophils (%) (Auto) 0, Neutrophils # (Auto) 6.3, Lymphocytes # (Auto) 0.4L, Monocytes # (Auto) 0.6, Eosinophils # (Auto) 0.0, Basophils # (Auto) 0.0, Sodium Level 135, Potassium Level 4.5, Chloride Level 99, Carbon Dioxide Level 25, Anion Gap 11, Blood Urea Nitrogen 9, Creatinine 0.72, Estimat Glomerular Filtration Rate > 60, BUN/Creat inine Ratio 13, Glucose Level 138H, Calcium Level 8.9, Corrected Calcium 9.0, T otal Bilirubin 0.3, Aspartate Amino Transf (AST/SGOT) 18, Alanine Aminotransferase (ALT/SGPT) 18, Alkaline Phosphatase 126, Total Protein 6.6, Albumin 3.9 Microbiology 05/17/19 Urine Culture - Final, Complete NO GROWTH 05/17/19 Influenza Types A,B Antigen (VY) - Final, Complete 05/17/19 Blood Culture - Preliminary, Resulted No growth Assessment/Plan Assessment/Plan Assess & Plan/Chief Complaint Patient not jerking this morning. Patient would like to go home today. Patient states he's walking good.. Patient refuses physical therapy Clinical Quality Measures Admission Status Admission Dx COPD with acute exacerbation. Hyponatremia. History of lung cancer. History of seizures. Falling recently. Jerking movements causing 4. Short of the air. DVT/VTE Risk/Contraindication: Risk Factor Score Per Nursin RFS Level Per Nursing on Admit: 4+=Very High AMANDEEP GENAO DO May 19, 2019 07:57
[2019-05-19 08:00] VITALS: BP 172/82
[2019-05-19] MEDS ORDERED: RT-ADVAIR HFA 115/21 MCG PER PUFF IH SCH (09:30)
[2019-05-19 12:00] VITALS: BP 155/74
--- NOTE | 2019-05-19 12:47 | NUR ---
PER DR. PACHECO, OK TO DC HOME WITH FOLLOW UP WITH HIM IN 2 WEEKS
[2019-05-19 12:51] VITALS: BP 155/74
[2019-05-19] MEDS: MELOXICAM 7.5 MG (MOBIC) TABLET PO SCH (15:12)
--- NOTE | 2019-05-20 07:52 | Clinic Account Progress/Dx ---
Clinic Account Progress/Dx DIAGNOSIS: Time Seen by Provider: 07:51 COPD with acute exacerbation. Falling. Jerking movements. Hypertension. Hyponatremia. Seizures. History of lung cancer. Short of air AMANDEEP GENAO DO May 20, 2019 07:52
== END 2019-05-19 15:30 | disposition home or self-care (01) ==
LOC: EDUNIT# 17:02 → ER 17:03 → 4TH 20:00
PROVIDERS: ADMIT Family Medicine; ATTEND Family Medicine
DX: J44.1 Chronic obstructive pulmonary disease with (acute) exacerbation (principal); G47.30 Sleep apnea, unspecified; G62.9 Polyneuropathy, unspecified; E78.1 Pure hyperglyceridemia; G40.909 Epilepsy, unspecified, not intractable, without status epilepticus; E78.00 Pure hypercholesterolemia, unspecified; I10 Essential (primary) hypertension; M19.90 Unspecified osteoarthritis, unspecified site; Z88.6 Allergy status to analgesic agent; Z85.118 Personal history of other malignant neoplasm of bronchus and lung; Z88.8 Allergy status to other drugs, medicaments and biological substances; Z79.891 Long term (current) use of opiate analgesic; Z79.899 Other long term (current) drug therapy; Z87.891 Personal history of nicotine dependence; Z92.21 Personal history of antineoplastic chemotherapy; Z83.3 Family history of diabetes mellitus
CPT/HCPCS: 36415; 71045; 80053; 80156; 80185; 81000; 83605; 83880; 85007; 85025; 85027; 85610; 85730; 87040; 87088; 87804; 93005; 93041; 94640; 94760; 96361; 96374; G0378

== ENCOUNTER → 2019-05-25 | Outpatient (CLI) | payer MEDICARE, MEDICAID ==
[~2019-05-25] MED LIST changes: -OMEP-280 PO; +OMEP20CA18 PO; -ROPI0.5T2 PO; +ROPI0.5T4 PO
--- NOTE | 2019-05-25 19:02 | Diagnostic Imaging Report ---
EXAMINATION: Left ankle radiographs, 3 views. COMPARISON: September 04, 2018. HISTORY: 63-year-old male, left ankle pain and foot pain. Falls. FINDINGS: The alignment of the ankle mortise is unremarkable. There is no tibiotalar joint effusion. There is a normal variant os trigonum. There is no large tibiotalar joint effusion. The tibiotalar joint and subtalar joints appear well-preserved. There is no identified acute fracture. IMPRESSION: 1. No identified acute bony abnormality specifically at the level of the left ankle. 2. Please see separately dictated foot radiograph report for findings specifically at the level of the left foot. Dictated by: Dictated on workstation # [id number]
--- NOTE | 2019-05-25 19:05 | Diagnostic Imaging Report ---
EXAMINATION: Left foot radiographs, 3 views. COMPARISON: September 04, 2018. HISTORY: 63-year-old male, left foot and ankle pain. History of falls. FINDINGS: These are not weightbearing images. The second metatarsal does appear to be laterally subluxed relative to its expected articulation with the middle cuneiform. The first metatarsal appears to be laterally subluxed relative to the medial cuneiform. This alignment is unchanged since September 04, 2018. There are advanced arthritic changes at the first and second tarsometatarsal articulations. There is no identified acute fracture in this region. There is a remote prior healed fracture deformity of the distal aspect of the fifth metatarsal. There is uncovering of the lateral sesamoid and mild hallux valgus deformity. There is an os trigonum. There is no identified bone erosion. IMPRESSION: 1. Abnormal alignment and subluxation of the first and second metatarsals relative to their cuneiform articulations as described above. This is unchanged since May 07, 2018. This potentially could be posttraumatic in etiology relating to sequela of a Lisfranc type injury. Charcot arthropathy and crystalline arthropathies could produce similar imaging features. 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 2. No identified interval acute bony abnormality at the level of the left foot. Dictated by: Dictated on workstation # [id number]
== END ==
LOC: RAD 15:37
PROVIDERS: ATTEND Nurse Practitioner Adult Health
DX: M19.072 Primary osteoarthritis, left ankle and foot (principal); W19.XXXA Unspecified fall, initial encounter
CPT/HCPCS: 73610; 73630

== ENCOUNTER → 2019-05-28 | Outpatient (CLI) | payer MEDICARE, MEDICAID ==
[~2019-05-28] MED LIST changes: +HOLD METFORMIN - RECEIVED CONTRAST 20 ML VIAL IV SCH; +HYDR-34 PO; -HYDR-3812 PO; -HYDR-3816 PO; +IOHEXOL 350 MG/ML 100 ML (OMNIPAQUE 350) VIAL IV ONE; +NS 100 ML (IVPB) BAG IV ONE
--- NOTE | 2019-05-28 11:56 | Diagnostic Imaging Report ---
PROCEDURE: CT head with and without contrast. TECHNIQUE: Multiple contiguous axial images were obtained through the brain before and after the administration of intravenous contrast. Auto Exposure Controls were utilized during the CT exam to meet ALARA standards for radiation dose reduction. INDICATION: Headaches and falls. COMPARISON: Correlation is made with prior head CT from 02/18/2019. FINDINGS: Right ventricular dilatation appears similar to prior exam. There is no sulcal effacement or midline shift. No acute intra-axial or extra-axial hemorrhage is detected. No abnormal enhancement is identified following contrast administration. Cisterns are patent. There is some fluid in the left maxillary sinus with mucosal thickening of ethmoid air cells. IMPRESSION: Stable head CT. No acute intracranial process is detected. There does appear to be left maxillary sinusitis. Dictated by: Dictated on workstation # [id number]
== END ==
LOC: RAD 11:16
PROVIDERS: ATTEND Nurse Practitioner Adult Health
DX: R51 Headache (principal); G25.5 Other chorea; W19.XXXA Unspecified fall, initial encounter; J32.0 Chronic maxillary sinusitis
CPT/HCPCS: 70470

== ENCOUNTER 2019-06-04 10:35 | Outpatient (RCR) | payer MEDICARE, MEDICAID ==
[2019-03-22 14:31] LABS: BASOPHILS % (AUTO) 0 % (0-10); EOSINOPHILS % (AUTO) 0 % (0-10); HEMATOCRIT 37 % (40-54); LYMPHOCYTES # (AUTO) 0.9 X 10^3 (1.0-4.0); LYMPHOCYTES % (AUTO) 11 % (12-44); MEAN CORPUSCULAR HEMOGLOBIN 29 PG (25-34); MEAN CORPUSCULAR HGB CONC 33 G/DL (32-36); MEAN CORPUSCULAR VOLUME 87 FL (80-99); MEAN PLATELET VOLUME 8.6 FL (7.4-10.4); MONOCYTES % (AUTO) 11 % (0-12); NEUTROPHILS # (AUTO) 6.7 X 10^3 (1.8-7.8); NEUTROPHILS % (AUTO) 78 % (42-75); PLATELET COUNT 247 10^3/uL (130-400); RED CELL DISTRIBUTION WIDTH 14.9 % (10.0-14.5); WHITE BLOOD COUNT 8.6 10^3/uL (4.3-11.0)
[2019-03-22 14:53] LABS: ALANINE AMINOTRANSFERASE 17 U/L (0-55); ALBUMIN 4.4 GM/DL (3.2-4.5); ALKALINE PHOSPHATASE 149 U/L (40-136); BILIRUBIN,TOTAL 0.3 MG/DL (0.1-1.0); BUN/CREATININE RATIO 12; CALCIUM 9.1 MG/DL (8.5-10.1); CARBON DIOXIDE 26 MMOL/L (21-32); CHLORIDE 92 MMOL/L (98-107); CREATININE SERUM 0.76 MG/DL (0.60-1.30); GFR ESTIMATED > 60; GLUCOSE 127 MG/DL (70-105); POTASSIUM 4.4 MMOL/L (3.6-5.0); SODIUM 129 MMOL/L (135-145); TOTAL PROTEIN 7.5 GM/DL (6.4-8.2)
[2019-04-19 13:24] LABS: BASOPHILS % (AUTO) 0 % (0-10); EOSINOPHILS % (AUTO) 0 % (0-10); HEMATOCRIT 37 % (40-54); HEMOGLOBIN 12.1 G/DL (13.3-17.7); LYMPHOCYTES # (AUTO) 0.6 X 10^3 (1.0-4.0); LYMPHOCYTES % (AUTO) 6 % (12-44); MEAN CORPUSCULAR HEMOGLOBIN 29 PG (25-34); MEAN CORPUSCULAR HGB CONC 32 G/DL (32-36); MEAN CORPUSCULAR VOLUME 89 FL (80-99); MEAN PLATELET VOLUME 8.5 FL (7.4-10.4); MONOCYTES # (AUTO) 0.7 X 10^3 (0.0-1.0); MONOCYTES % (AUTO) 8 % (0-12); NEUTROPHILS # (AUTO) 7.8 X 10^3 (1.8-7.8); NEUTROPHILS % (AUTO) 86 % (42-75); PLATELET COUNT 338 10^3/uL (130-400); RED CELL DISTRIBUTION WIDTH 14.9 % (10.0-14.5); WHITE BLOOD COUNT 9.1 10^3/uL (4.3-11.0)
[2019-04-19 13:41] LABS: ALANINE AMINOTRANSFERASE 20 U/L (0-55); ALBUMIN 4.3 GM/DL (3.2-4.5); ALKALINE PHOSPHATASE 124 U/L (40-136); BILIRUBIN,TOTAL 0.3 MG/DL (0.1-1.0); BUN/CREATININE RATIO 17; CALCIUM 9.2 MG/DL (8.5-10.1); CARBON DIOXIDE 28 MMOL/L (21-32); CHLORIDE 97 MMOL/L (98-107); CREATININE SERUM 0.75 MG/DL (0.60-1.30); GFR ESTIMATED > 60; GLUCOSE 103 MG/DL (70-105); POTASSIUM 4.4 MMOL/L (3.6-5.0); SODIUM 134 MMOL/L (135-145); TOTAL PROTEIN 7.4 GM/DL (6.4-8.2)
[2019-05-25 14:23] LABS: BASOPHILS % (AUTO) 0 % (0-10); EOSINOPHILS % (AUTO) 0 % (0-10); HEMATOCRIT 37 % (40-54); HEMOGLOBIN 11.9 G/DL (13.3-17.7); LYMPHOCYTES # (AUTO) 0.6 X 10^3 (1.0-4.0); LYMPHOCYTES % (AUTO) 6 % (12-44); MEAN CORPUSCULAR HEMOGLOBIN 29 PG (25-34); MEAN CORPUSCULAR HGB CONC 32 G/DL (32-36); MEAN CORPUSCULAR VOLUME 89 FL (80-99); MEAN PLATELET VOLUME 8.6 FL (7.4-10.4); MONOCYTES % (AUTO) 9 % (0-12); NEUTROPHILS # (AUTO) 9.5 X 10^3 (1.8-7.8); NEUTROPHILS % (AUTO) 85 % (42-75); PLATELET COUNT 256 10^3/uL (130-400); RED CELL DISTRIBUTION WIDTH 14.6 % (10.0-14.5); WHITE BLOOD COUNT 11.2 10^3/uL (4.3-11.0)
[2019-05-25 14:40] LABS: ALANINE AMINOTRANSFERASE 10 U/L (0-55); ALBUMIN 4.3 GM/DL (3.2-4.5); ALKALINE PHOSPHATASE 150 U/L (40-136); BILIRUBIN,TOTAL 0.3 MG/DL (0.1-1.0); BUN/CREATININE RATIO 8; CALCIUM 9.1 MG/DL (8.5-10.1); CARBON DIOXIDE 31 MMOL/L (21-32); CHLORIDE 93 MMOL/L (98-107); CREATININE SERUM 0.71 MG/DL (0.60-1.30); GFR ESTIMATED > 60; GLUCOSE 134 MG/DL (70-105); POTASSIUM 4.9 MMOL/L (3.6-5.0); SODIUM 131 MMOL/L (135-145); TOTAL PROTEIN 7.5 GM/DL (6.4-8.2)
[~2019-06-04 10:35] MED LIST changes: -HOLD METFORMIN - RECEIVED CONTRAST 20 ML VIAL IV SCH; -IOHEXOL 350 MG/ML 100 ML (OMNIPAQUE 350) VIAL IV ONE; +NIVOLUMAB 480 MG in NS (IVPB) CANCER CENTER 100 ML IV SCH; -NS 100 ML (IVPB) BAG IV ONE; +NS IV 1000 ML (CANCER CTR) IV SCH
[2019-06-05] MEDS ORDERED: LISI-552 PO (03:49)
[2019-06-05] MEDS ORDERED: LAMO100T69 PO (03:49)
[2019-06-05] MEDS ORDERED: ATOR10TA PO (03:49)
[2019-06-07] MEDS ORDERED: CEFD300C3 PO (08:05)
[2019-06-07] MEDS ORDERED: PRED10TA22 PO (08:05)
[2019-06-07] MEDS ORDERED: HYDR-4226 PO (09:53)
[2019-06-21] MEDS ORDERED: HYDR-4226 PO (11:32)
[2019-06-21] MEDS ORDERED: MUPI22OI2 TOP (11:32)
[2019-06-21] MEDS ORDERED: PRD10T PO (11:32)
[2019-06-21] MEDS ORDERED: ACET-93 PO (11:39)
== END 2019-06-20 | disposition home or self-care (01) ==
LOC: ONC 10:35
PROVIDERS: ATTEND Internal Medicine Hematology & Oncology
DX: Z51.11 Encounter for antineoplastic chemotherapy (principal); C34.12 Malignant neoplasm of upper lobe, left bronchus or lung; C79.51 Secondary malignant neoplasm of bone; J43.9 Emphysema, unspecified; G40.909 Epilepsy, unspecified, not intractable, without status epilepticus; E78.5 Hyperlipidemia, unspecified; Z87.891 Personal history of nicotine dependence; Z79.899 Other long term (current) drug therapy; Z92.21 Personal history of antineoplastic chemotherapy
CPT/HCPCS: 36591; 80053; 84443; 85025; 96413

== ENCOUNTER 2019-06-05 01:04 | Inpatient (IN) | payer MEDICARE, MEDICAID ==
[2019-06-05] VITALS (8 sets, daily range): BP systolic 139–176; BP diastolic 80–97
[~2019-06-05] VITALS: Ht 182.8 cm; Wt 87.4 kg
[~2019-06-05 01:04] MED LIST changes: -NIVOLUMAB 480 MG in NS (IVPB) CANCER CENTER 100 ML IV SCH; -NS IV 1000 ML (CANCER CTR) IV SCH
[2019-06-05] MEDS ORDERED: methylPREDNISolone 125 MG (Solu-MEDROL) VIAL IV STA (01:12)
[2019-06-05] MEDS ORDERED: RT-ALBUTEROL SULF 2.5 MG/3 ML PRE-MIX VIAL INH STA (01:12)
[2019-06-05] MEDS ORDERED: RT-ALBUTEROL/IPRATROPIUM 3 ML (DUONEB) VIAL INH ONE (01:15)
--- NOTE | 2019-06-05 01:18 | NUR ---
RESPIRATORY THERAPY NOTIFIED OF CONSULT
[2019-06-05 01:37] LABS: BASOPHILS % (AUTO) 0 % (0-10); EOSINOPHILS % (AUTO) 0 % (0-10); HEMATOCRIT 38 % (40-54); LYMPHOCYTES % (AUTO) 12 % (12-44); MEAN CORPUSCULAR HEMOGLOBIN 28 PG (25-34); MEAN CORPUSCULAR HGB CONC 32 G/DL (32-36); MEAN CORPUSCULAR VOLUME 89 FL (80-99); MEAN PLATELET VOLUME 8.3 FL (7.4-10.4); MONOCYTES # (AUTO) 1.2 X 10^3 (0.0-1.0); MONOCYTES % (AUTO) 14 % (0-12); NEUTROPHILS # (AUTO) 6.4 X 10^3 (1.8-7.8); NEUTROPHILS % (AUTO) 74 % (42-75); PLATELET COUNT 390 10^3/uL (130-400); RED CELL DISTRIBUTION WIDTH 14.4 % (10.0-14.5); WHITE BLOOD COUNT 8.6 10^3/uL (4.3-11.0)
[2019-06-05 01:55] LABS: ALANINE AMINOTRANSFERASE 13 U/L (0-55); ALBUMIN 4.3 GM/DL (3.2-4.5); ALKALINE PHOSPHATASE 179 U/L (40-136); BILIRUBIN,TOTAL 0.2 MG/DL (0.1-1.0); BUN/CREATININE RATIO 8; CALCIUM 9.3 MG/DL (8.5-10.1); CARBON DIOXIDE 29 MMOL/L (21-32); CHLORIDE 93 MMOL/L (98-107); CREATININE SERUM 0.72 MG/DL (0.60-1.30); GFR ESTIMATED > 60; GLUCOSE 125 MG/DL (70-105); POTASSIUM 4.4 MMOL/L (3.6-5.0); SODIUM 134 MMOL/L (135-145); TOTAL PROTEIN 7.9 GM/DL (6.4-8.2)
--- NOTE | 2019-06-05 02:15 | ED Respiratory ---
General Chief Complaint: Respiratory Problems Stated Complaint: SOA Nursing Triage Note: shortness of breath started at 1900 took 3 albuterol treatments at home and was still not better so decided to come in. hx of copd Source: patient, family Exam Limitations: no limitations History of Present Illness Date Seen by Provider: Jun 05, 2019 Time Seen by Provider: 01:06 Initial Comments This 63-year-old gentleman with COPD presents to the emergency room with worsening shortness of breath over the past couple of days despite using breathing treatments. He denies fever or increased cough. He is well-known to the ER staff for having severe COPD exacerbations. He uses oxygen at 4 L/m. He quit smoking a few years ago. He denies any chest pain or other associated symptoms. Allergies and Home Medications Allergies Coded Allergies: aspirin (Unverified Allergy, Mild, DOES NOT WORK WELL W/ OTHER MEDS, 10/05/18) ibuprofen (Unverified Allergy, Mild, 10/05/18) Home Medications Albuterol Sulfate 2.5 Mg/3 Ml Vial.neb, 2.5 MG NEB Q4H PRN for SHORTNESS OF BREATH, (Reported) Albuterol Sulfate 1 Puff Puff, 2 PUFF IH Q6H PRN for SHORTNESS OF BREATH, (Reported) Amlodipine Besylate 5 Mg Tablet, 5 MG PO 0800, (Reported) Atorvastatin Calcium 20 Mg Tablet, 10 MG PO 0300, (Reported) Budesonide/Formoterol Fumarate 10.2 Gm Hfa.aer.ad, 2 PUFF INH BID PRN for WHEN OUT OF ADVAIR, (Reported) Carbamazepine 200 Mg Tablet, 200 MG PO 0300,0800,2300, (Reported) Carbamazepine 200 Mg Tablet, 400 MG PO 1500, (Reported) TAKES 2 (200 MG) TABLETS Fluticasone/Salmeterol 12 Gm Hfa.aer.ad, 1 PUFF IH BID, (Reported) Gabapentin 300 Mg Capsule, 300 MG PO 2300, (Reported) Gabapentin 600 Mg Tablet, 600 MG PO 0800,1500, (Reported) Hydrocodone Bit/Acetaminophen 1 Each Tablet, 1 TAB PO BID PRN for PAIN-MODERATE (5-7), (Reported) Lamotrigine 100 Mg Tablet, 125 MG PO 1500, (Reported) AT 1500 PT TAKES 100MG + 25MG TO EQUAL 125MG AT 0300 PT TAKES JUST 25MG Lamotrigine 25 Mg Tablet, 25 MG PO 0300, (Reported) AT 1500 PT TAKES 100MG +25MG TO EQUAL 125MG AT 2300 PT TAKES JUST A 100MG TAB Lamotrigine 100 Mg Tablet, 100 MG PO 2300, (Reported) PT TAKES 100MG AT 2300 Lisinopril 20 Mg Tablet, 20 MG PO 0300, (Reported) PT TAKES 20MG AT 0300 Melatonin 5 Mg Capsule, 5 MG PO HS, (Reported) Meloxicam 7.5 Mg Tablet, 15 MG PO 1500, (Reported) Omeprazole 20 Mg Capsule.dr, 20 MG PO DAILY PRN for HEARTBURN, (Reported) Phenytoin Sodium Extended 100 Mg Capsule, 200 MG PO 0800,1500, (Reported) TAKES 2 (100 MG) CAPSULES Phenytoin Sodium Extended 100 Mg Capsule, 100 MG PO 2300, (Reported) Ropinirole HCl 0.5 Mg Tablet, 0.5 MG PO 1500, (Reported) Tiotropium [place] 1 Inh Aerp, 1 CAP IH 1500, (Reported) Patient Home Medication List Home Medication List Reviewed: Yes Review of Systems Review of Systems Constitutional: no symptoms reported EENTM: no symptoms reported Respiratory: see HPI Cardiovascular: no symptoms reported Gastrointestinal: no symptoms reported Genitourinary: no symptoms reported Musculoskeletal: no symptoms reported Skin: no symptoms reported Psychiatric/Neurological: No Symptoms Reported Hematologic/Lymphatic: No Symptoms Reported Past Kwecyaa-Qtfvrb-Mcuwar Hx Past Med/Social Hx: Reviewed and Corrections made Patient Social History Alcohol Use: Denies Use Recreational Drug Use: Yes (not current, 15 years ago-ETOH and PO drugs) Drug of Choice: HX OF RX DRUG ABUSE, CLAIMS NONE 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 Type Used: Cigars, Cigarettes Former Smoker, Quit: Jan 29, 2017 2nd Hand Smoke Exposure: No Recent Foreign Travel: No Contact w/Someone Who Travel: No Recent Infectious Disease Expo: No Recent Hopitalizations: No Physical Abuse: No Sexual Abuse: No Mistreated: No Fear: No Immunizations Up To Date Tetanus Booster (TDap): Less than 5yrs PED Vaccines UTD: Yes Date of Influenza Vaccine: Apr 21, 2018 Seasonal Allergies Seasonal Allergies: Yes Past Medical History Surgeries: Yes Eye Surgery, Gallbladder Respiratory: Yes Asthma, Pneumonia, Chronic Bronchitis, Sleep Apnea, COPD (Uses supplemental oxygen at 4 L) Currently Using CPAP: No Currently Using BIPAP: No Cardiac: Yes Heart Murmur, High Cholesterol, Hypertension, Valvular Heart Disease 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) Neuropathy, Seizure Disorder, Vertigo Reproductive Disorders: No Sexually Transmitted Disease: No HIV/AIDS: No Genitourinary: No Gastrointestinal: Yes (CHRONIC NAUSEA/VOMITING) Musculoskeletal: Yes (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 Physical Exam Vital Signs - First Documented 06/05/19 06/05/19 01:08 01:22 Temp 36.5 Pulse 95 Resp 24 B/P (MAP) 198/112 (140) Pulse Ox 95 O2 Delivery Nasal Cannula O2 Flow Rate 4.00 Capillary Refill : Greater Than 3 Seconds Height: 6'0" Weight: 174lbs. 3.0oz. 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 as tested, no motor/sensory deficits, alert, normal mood/affect, oriented x 3 Skin: normal color, warm/dry Procedures/Interventions Date of ETT Placement: Mar 09, 2017 Time of ETT Placement: 1811 Suture Size: 5-0 Progress/Results/Core Measures Suspected Sepsis Recent Fever Within 48 Hours: No Infection Criteria Present: None New/Unexplained Altered Menta: No Sepsis Screen: No Definite Risk SIRS Temperature: Pulse: 84 Respiratory Rate: 26 Laboratory Tests 06/05/19 01:08: White Blood Count 8.6 Blood Pressure 176 /97 Mean: 123 Laboratory Tests 06/05/19 01:08: Creatinine 0.72, Platelet Count 390, Total Bilirubin 0.2 Results/Orders Lab Results Laboratory Tests Test 06/05/19 01:08 Range/Units White Blood Count 8.6 4.3-11.0 10^3/uL Red Blood Count 4.26 L 4.35-5.85 10^6/uL Hemoglobin 12.0 L 13.3-17.7 G/DL Hematocrit 38 L 40-54 % Mean Corpuscular Volume 89 80-99 FL Mean Corpuscular Hemoglobin 28 25-34 PG Mean Corpuscular Hemoglobin Concent 32 32-36 G/DL Red Cell Distribution Width 14.4 10.0-14.5 % Platelet Count 390 130-400 10^3/uL Mean Platelet Volume 8.3 7.4-10.4 FL Neutrophils (%) (Auto) 74 42-75 % Lymphocytes (%) (Auto) 12 12-44 % Monocytes (%) (Auto) 14 H 0-12 % Eosinophils (%) (Auto) 0 0-10 % Basophils (%) (Auto) 0 0-10 % Neutrophils # (Auto) 6.4 1.8-7.8 X 10^3 Lymphocytes # (Auto) 1.0 1.0-4.0 X 10^3 Monocytes # (Auto) 1.2 H 0.0-1.0 X 10^3 Eosinophils # (Auto) 0.0 0.0-0.3 10^3/uL Basophils # (Auto) 0.0 0.0-0.1 10^3/uL Sodium Level 134 L 135-145 MMOL/L Potassium Level 4.4 3.6-5.0 MMOL/L Chloride Level 93 L 98-107 MMOL/L Carbon Dioxide Level 29 21-32 MMOL/L Anion Gap 12 5-14 MMOL/L Blood Urea Nitrogen 6 L 7-18 MG/DL Creatinine 0.72 0.60-1.30 MG/DL Estimat Glomerular Filtration Rate > 60 BUN/Creatinine Ratio 8 Glucose Level 125 H 70-105 MG/DL Calcium Level 9.3 8.5-10.1 MG/DL Corrected Calcium 9.1 8.5-10.1 MG/DL Total Bilirubin 0.2 0.1-1.0 MG/DL Aspartate Amino Transf (AST/SGOT) 16 5-34 U/L Alanine Aminotransferase (ALT/SGPT) 13 0-55 U/L Alkaline Phosphatase 179 H 40-136 U/L C-Reactive Protein High Sensitivity 6.05 H 0.00-0.50 MG/DL Total Protein 7.9 6.4-8.2 GM/DL Albumin 4.3 3.2-4.5 GM/DL Micro Results Microbiology 06/05/19 Influenza Types A,B Antigen (VY) - Final, Complete My Orders Orders - STEFAN HERNANDEZ MD Cbc With Automated Diff (06/05/19 01:12) Comprehensive Metabolic Panel (06/05/19 01:12) Hs C Reactive Protein (06/05/19 01:12) Influenza A And B Antigens (06/05/19 01:12) Ed Iv/Invasive Line Start (06/05/19 01:12) Chest 1 View, Ap/Pa Only (06/05/19 01:12) Albuterol Pre-Mix Nebs (Rt) (Proventil (06/05/19 01:12) Albuterol/Ipra Inhalation Soln (Duoneb I (06/05/19 01:15) Methylprednisolone Sod Succ (Solu-Medrol (06/05/19 01:12) Svn Small Volume Nebulizer (06/05/19 01:12) Svn Small Volume Nebulizer (06/05/19 01:12) Medications Given in ED Current Medications Medications Dose Ordered Sig/Porfirio Route Start Time Stop Time Status Last Admin Dose Admin Albuterol/ Ipratropium 3 ml ONCE ONCE INH 06/05/19 01:15 06/05/19 01:16 DC 06/05/19 01:37 3 ML Vital Signs/I&O 06/05/19 06/05/19 01:08 01:22 Temp 36.5 Pulse 95 84 Resp 24 26 B/P (MAP) 198/112 (140) 176/97 (123) Pulse Ox 95 97 O2 Delivery Nasal Cannula O2 Flow Rate 4.00 Capillary Refill : Greater Than 3 Seconds Blood Pressure Mean: 123 Progress Note : Progress Note Patient was started on an hour-long nebulizer treatment. Steroids were administered by IV route. There is no evidence of pneumonia. Patient did experience improvement but still needed admission. Diagnostic Imaging Diagonstic Imaging: Xray Plain Films/CT/US/NM/MRI: chest Comments Chest x-ray viewed by me and compared with prior. Report not yet available. There is bibasilar atelectasis with no acute changes appreciated. Departure Communication (Admissions) Time/Spoke to Admitting Phy: 02:05 Dr. Lui Impression Primary Impression: COPD exacerbation Disposition: 09 ADMITTED INPATIENT Condition: Improved Admissions Decision to Admit Reason: Admit from ER (General) Decision to Admit/Date: Jun 05, 2019 Time/Decision to Admit Time: 01:10 Departure-Patient Inst. Referrals: AMANDEEP GENAO DO (PCP/Family) Primary Care Physician STEFAN HERNANDEZ MD Jun 05, 2019 02:15
[2019-06-05] MEDS ORDERED: NS IV 1000 ML 1,000 ML ONE (03:04)
--- NOTE | 2019-06-05 03:15 | NUR ---
CR QUIJANO admitted to room 430-1, with an admitting diagnosis of COPD EXACERBATION, on 06/05/19 from [place] via [facility], accompanied by STAFF.CR QUIJANO introduced to surroundings, call light, bed controls, phone, TV, temperature control, lights, meal times, smoking policy, visitor policy, side rail policy, bathrooms and showers. Patient Rights given to patient in the handbook. CR QUIJANO verbalizes understanding that [facility] is not responsible for the loss or damage to any personal effects or valuables that are kept in the patients posession during their hospitalization.
[2019-06-05] MEDS ORDERED: LISI-552 PO (03:49)
[2019-06-05] MEDS ORDERED: LAMO100T69 PO (03:49)
[2019-06-05] MEDS ORDERED: ATOR10TA PO (03:49)
--- NOTE | 2019-06-05 04:30 | NUR ---
MED REC DONE BASED ON LIST PROVIDED BY PATIENT, THIS NURSE WENT OVER MED LIST WITH HIM TO VERIFY.
[2019-06-05] MEDS ORDERED: NS IV 1000 ML 1,000 ML IV SCH (05:15)
[2019-06-05] MEDS ORDERED: LORazepam INJ 2 MG/ML (ATIVAN) VIAL IV PRN (05:15)
[2019-06-05] MEDS ORDERED: ONDANSETRON 4 MG/2 ML (SDV) Z0FRAN IV PRN (05:15)
[2019-06-05] MEDS ORDERED: RT-ALBUTEROL SULF 2.5 MG/3 ML PRE-MIX VIAL IH PRN (05:15)
[2019-06-05] MEDS ORDERED: methylPREDNISolone 40 MG/ML (Solu-MEDROL) VIAL IV SCH (07:00)
--- NOTE | 2019-06-05 07:11 | Diagnostic Imaging Report ---
INDICATION: Shortness of air COMPARISON: 05/17/2019 TECHNIQUE: Single frontal radiograph of the chest dated 06/05/2019. FINDINGS: Right-sided Port-A-Cath is again identified and stable. The cardiac silhouette is within normal limits in size. No significant pulmonary vascular congestion. Chronic opacities are identified within the right lung base. However, additional superimposed opacities are seen within the bilateral lung bases. No significant pleural effusion. No pneumothorax. Advanced degenerative changes of the bilateral shoulders without acute osseous abnormality. IMPRESSION: Developing bibasilar infiltrate versus edema superimposed upon chronic right basilar scarring. Stable right-sided Port-A-Cath. Additional stable findings as above. Dictated by: Dictated on workstation # [id number]
[2019-06-05] MEDS: RT-ALBUTEROL/IPRATROPIUM 3 ML (DUONEB) VIAL IH SCH ×6 (07:27→21:32)
[2019-06-05] MEDS: amLODIPine 5 MG (NORVASC) TAB PO SCH (08:41)
[2019-06-05] MEDS: carBAMazepine 200 MG (TEGretol) TAB PO SCH ×2 (08:42→15:59)
[2019-06-05] MEDS: PHENYTOIN 100 MG (DILANTIN) CAP PO SCH ×3 (08:42→20:09)
[2019-06-05] MEDS ORDERED: PIPERACILLIN/TAZOBACTAM (BULK) 4.5 GM in NS (IVPB) 100 ML IV NR (11:45)
[2019-06-05] MEDS ORDERED: FAMOTIDINE 20 MG (PEPCID) TABLET PO ONE (11:45)
--- NOTE | 2019-06-05 11:48 | History & Physical ---
History of Present Illness History of Present Illness Reason for visit/HPI This is a 63 year old male with oxygen dependant COPD who presented to the emergency room with worsening shortness of air. He also has lung cancer with mets and finished a chemo treatment on 06/04/19. He was found to be in acute respiratory distress for an acute COPD exacerbation. He was given IV solumedrol as well as a nebulizer treatment and admitted for further treatment. Date of Admission Jun 05, 2019 at 02:11 Date Seen by a Provider: Jun 05, 2019 Time Seen by a Provider: 11:41 I consulted on this patient on 06/05/19 11:41 Attending Physician Shilpa Mercado DO Admitting Physician Micky Feng DO Consult Allergies and Home Medications Allergies Coded Allergies: aspirin (Unverified Allergy, Mild, DOES NOT WORK WELL W/ OTHER MEDS, 10/05/18) ibuprofen (Unverified Allergy, Mild, 10/05/18) Home Medications Albuterol Sulfate 2.5 Mg/3 Ml Vial.neb, 2.5 MG NEB Q4H PRN for SHORTNESS OF BREATH, (Reported) Albuterol Sulfate 1 Puff Puff, 2 PUFF IH Q6H PRN for SHORTNESS OF BREATH, (Reported) Amlodipine Besylate 5 Mg Tablet, 5 MG PO 0800, (Reported) Atorvastatin Calcium 20 Mg Tablet, 10 MG PO 0300, (Reported) Budesonide/Formoterol Fumarate 10.2 Gm Hfa.aer.ad, 2 PUFF INH BID PRN for WHEN OUT OF ADVAIR, (Reported) Carbamazepine 200 Mg Tablet, 200 MG PO 0300,0800,2300, (Reported) Carbamazepine 200 Mg Tablet, 400 MG PO 1500, (Reported) TAKES 2 (200 MG) TABLETS Fluticasone/Salmeterol 12 Gm Hfa.aer.ad, 1 PUFF IH BID, (Reported) Gabapentin 300 Mg Capsule, 300 MG PO 2300, (Reported) Gabapentin 600 Mg Tablet, 600 MG PO 0800,1500, (Reported) Hydrocodone Bit/Acetaminophen 1 Each Tablet, 1 TAB PO BID PRN for PAIN-MODERATE (5-7), (Reported) Lamotrigine 100 Mg Tablet, 125 MG PO 1500, (Reported) AT 1500 PT TAKES 100MG + 25MG TO EQUAL 125MG AT 0300 PT TAKES JUST 25MG Lamotrigine 25 Mg Tablet, 25 MG PO 0300, (Reported) AT 1500 PT TAKES 100MG +25MG TO EQUAL 125MG AT 2300 PT TAKES JUST A 100MG TAB Lamotrigine 100 Mg Tablet, 100 MG PO 2300, (Reported) PT TAKES 100MG AT 2300 Lisinopril 20 Mg Tablet, 20 MG PO 0300, (Reported) PT TAKES 20MG AT 0300 Melatonin 5 Mg Capsule, 5 MG PO HS, (Reported) Meloxicam 7.5 Mg Tablet, 15 MG PO 1500, (Reported) Omeprazole 20 Mg Capsule.dr, 20 MG PO DAILY PRN for HEARTBURN, (Reported) Phenytoin Sodium Extended 100 Mg Capsule, 200 MG PO 0800,1500, (Reported) TAKES 2 (100 MG) CAPSULES Phenytoin Sodium Extended 100 Mg Capsule, 100 MG PO 2300, (Reported) Ropinirole HCl 0.5 Mg Tablet, 0.5 MG PO 1500, (Reported) Tiotropium [place] 1 Inh Aerp, 1 CAP IH 1500, (Reported) Patient Home Medication List Home Medication List Reviewed: Yes Past Kshazdj-Jfmjlv-Odxozq Hx Past Med/Social Hx: Reviewed and Corrections made Patient Social History Alcohol Use: Denies Use Recreational Drug Use: Yes (not current, 15 years ago-ETOH and PO drugs) Drug of Choice: HX OF RX DRUG ABUSE, CLAIMS NONE 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 Former Smoker, Quit: Jan 29, 2017 Type Used: Cigars, Cigarettes 2nd Hand Smoke Exposure: No Recent Foreign Travel: No Contact w/other who traveled: No Recent Hopitalizations: No Recent Infectious Disease Expo: No Immunizations Up To Date Tetanus Booster (TDap): Less than 5yrs Pediatric: Yes Date of Influenza Vaccine: Apr 21, 2018 Seasonal Allergies Seasonal Allergies: Yes Past Medical History Surgeries: Eye Surgery, Gallbladder Respiratory: COPD, Emphysema, Pneumonia Currently Using CPAP: No Currently Using BIPAP: No Cardiac: Heart Murmur, High Cholesterol, Hypertension, Valvular Heart Disease Neurological: Neuropathy, Seizure Disorder, Vertigo Reproductive: No Sexually Transmitted Disease: No HIV/AIDS: No Musculoskeletal: Arthritis, Fractures Loss of Vision: Denies Hearing Impairment: Denies Cancer: Bone, Lung Did You Recieve Any Treatments: Yes What Type of Treatment Did You: Chemotherapy History of Blood Disorders: No Adverse Reaction to Blood [place]: No Family History Reviewed Nursing Family Hx Diabetes mellitus 19 MOTHER Hypercholesterolemia 19 FATHER Hypertension 19 FATHER Heart Disease Limited to records review due to clinical condition. Review of Systems Constitutional: weakness EENTM: nose congestion Respiratory: cough, dyspnea on exertion, short of breath, wheezing Cardiovascular: No no symptoms reported, No see HPI, No chest pain, No edema, No Hx of Intervention, No palpitations, No syncope, No vascular heart diseas, No other Gastrointestinal: No RUQ, No LUQ, No RLQ, No LLQ, No no symptoms reported, No see HPI, No abdominal pain, No constipation, No diarrhea, No dysphagia, No hematemesis, No heartburn, No jaundice, No loss of appetite, No melena, No nausea, No vomiting, No other Genitourinary: No no symptoms reported, No see HPI, No decreased output, No discharge, No dysuria, No frequency, No hematuria, No hesitancy, No incontinence, No nocturia, No pain, No other Musculoskeletal: muscle weakness Skin: No no symptoms reported, No see HPI, No change in color, No change in hair/nails, No dryness, No hx of skin cancer, No lesions, No lumps, No pruritus, No rash, No other Psychiatric/Neurological: Weakness Physical Exam Vital Signs Vital Signs - First Documented 06/05/19 06/05/19 01:08 01:22 Temp 36.5 Pulse 95 Resp 24 B/P (MAP) 198/112 (140) Pulse Ox 95 O2 Delivery Nasal Cannula O2 Flow Rate 4.00 Capillary Refill : Less Than 3 Seconds Height, Weight, BMI Height: 6'0" Weight: 174lbs. 3.0oz. 79.590403hq; 24.41 BMI Method:Stated General Appearance: Mild Distress (respiratory) HEENT: Pharyngeal Erythema Neck: Supple Respiratory: Crackles, Decreased Breath Sounds, Respiratory Distress, Rhonci, Wheezing Cardiovascular: Regular Rate, Rhythm, Systolic Murmur Gastrointestinal: Normal Bowel Sounds, Non Tender, Soft Rectal: Deferred Back: No CVA Tenderness Extremity: Non Tender, No Calf Tenderness, No Pedal Edema Neurologic/Psychiatric: Alert, Oriented x3 Skin: Warm/Dry Comments Laboratory Tests 06/05/19 01:08: White Blood Count 8.6, Red Blood Count 4.26L, Hemoglobin 12.0L, Hematocrit 38L, Mean Corpuscular Volume 89, Mean Corpuscular Hemoglobin 28, Mean Corpuscular Hemoglobin Concent 32, Red Cell Distribution Width 14.4, Platelet Count 390, Mean Platelet Volume 8.3, Neutrophils (%) (Auto) 74, Lymphocytes (%) (Auto) 12, Monocytes (%) (Auto) 14H, Eosinophils (%) (Auto) 0, Basophils (%) (Auto) 0, Neutrophils # (Auto) 6.4, Lymphocytes # (Auto) 1.0, Monocytes # (Auto) 1.2H, Eosinophils # (Auto) 0.0, Basophils # (Auto) 0.0, Sodium Level 134L, Potassium Level 4.4, Chloride Level 93L, Carbon Dioxide Level 29, Anion Gap 12, Blood Urea Nitrogen 6L, Creatinine 0.72, Estimat Glomerular Filtration Rate > 60, BUN/Creatinine Ratio 8, Glucose Level 125H, Calcium Level 9.3, Corrected Calcium 9.1, Total Bilirubin 0.2, Aspartate Amino Transf (AST/SGOT) 16, Alanine Aminotransferase (ALT/SGPT) 13, Alkaline Phosphatase 179H, C-Reactive Protein High Sensitivity 6.05H, Total Protein 7.9, Albumin 4.3 Microbiology 06/05/19 Influenza Types A,B Antigen (VY) - Final, Complete Assessment/Plan Assessment and Plan 1. Acute Respiratory Distress--admit for treatment, oxygen/respiratory support 2. Acute Exacerbation of COPD--IV solumedrol, SVNS, oxygen 3. Bibasilar Pneumonia--start Zosyn, lovenox for DVT prophylaxis and famotodine for stress ulcer prophylaxis 4. Seizure Disorder--home antieleptics restarted 5. Hypertension--restarted amlodopine 6. Lung Cancer with Mets--patient had chemo treatment on 06/04/19 Admission Diagnosis Admission Status: Inpatient Order (span 2 midnights) Reason for Inpatient Admission: Will need at least 48hrs IV steroids and IV abx Clinical Quality Measures DVT/VTE Risk/Contraindication: Risk Factor Score Per Nursin RFS Level Per Nursing on Admit: 4+=Very High SHILPA MERCADO DO Jun 05, 2019 11:48
[2019-06-05] MEDS: methylPREDNISolone 40 MG/ML (Solu-MEDROL) VIAL IV SCH ×2 (11:49→18:07)
[2019-06-05] MEDS: ENOXAPARIN 40 MG/0.4 ML (LOVENOX) SYR SC SCH (11:53)
[2019-06-05] MEDS: lamoTRIgine 25 MG (LaMICtal) TAB PO SCH (16:21)
[2019-06-05] MEDS: GABAPENTIN 600 MG (NEURONTIN) TAB PO SCH (16:21)
[2019-06-05] MEDS: PIPERACILLIN/TAZO 4.5 GM/NS 100 ML IV SCH ×2 (18:08)
[2019-06-05] MEDS: RT-ADVAIR HFA 115/21 MCG PER PUFF IH SCH (18:59)
[2019-06-05] MEDS: FAMOTIDINE 20 MG (PEPCID) TABLET PO SCH (20:09)
[2019-06-06] VITALS: BP 163/83
[2019-06-06] MEDS: methylPREDNISolone 40 MG/ML (Solu-MEDROL) VIAL IV SCH ×5 (00:26→23:21)
[2019-06-06] MEDS: GABAPENTIN 300 MG (NEURONTIN) CAP PO SCH ×2 (00:27→23:19)
[2019-06-06] MEDS: carBAMazepine 200 MG (TEGretol) TAB PO SCH ×5 (00:27→23:20)
[2019-06-06] MEDS: RT-ALBUTEROL/IPRATROPIUM 3 ML (DUONEB) VIAL IH SCH ×6 (00:52→21:44)
[2019-06-06] MEDS: PIPERACILLIN/TAZO 4.5 GM/NS 100 ML IV SCH ×6 (03:11→17:40)
[2019-06-06] MEDS: lamoTRIgine 25 MG (LaMICtal) TAB PO SCH ×2 (04:13→15:24)
[2019-06-06] MEDS ORDERED: ACETAMINOPHEN 325 MG TABLET PO PRN (06:15)
[2019-06-06] MEDS: RT-ADVAIR HFA 115/21 MCG PER PUFF IH SCH ×2 (07:55→18:40)
[2019-06-06 08:00] VITALS: BP 170/95
[2019-06-06] MEDS: amLODIPine 5 MG (NORVASC) TAB PO SCH (08:20)
[2019-06-06] MEDS: PHENYTOIN 100 MG (DILANTIN) CAP PO SCH ×3 (08:20→19:57)
[2019-06-06] MEDS: GABAPENTIN 600 MG (NEURONTIN) TAB PO SCH ×2 (08:20→15:24)
[2019-06-06] MEDS: FAMOTIDINE 20 MG (PEPCID) TABLET PO SCH ×2 (08:20→19:57)
[2019-06-06] MEDS: ENOXAPARIN 40 MG/0.4 ML (LOVENOX) SYR SC SCH (11:35)
[2019-06-06] MEDS ORDERED: lisINopril 20 MG (PRINIVIL) TABLET PO ONE (11:45)
[2019-06-06] MEDS ORDERED: DOCUSATE SODIUM 100 MG (COLACE) CAP PO ONE (11:45)
--- NOTE | 2019-06-06 13:05 | Progress Note ---
Subjective Date Seen by a Provider: Jun 06, 2019 Time Seen by a Provider: 11:30 Subjective/Events-last exam Fwup Acute Respiratory Distress, Exacerbation of COPD, Bibasilar pneumonia, Hypertension, COPD, Lung Cancer with Mets. States after ate last night and this morning that it felt like it was harder to breath. States has not had a BM and usually does not have a BM in a few days or like to go while he is in the hospital. Not as short of air with minimal movement. Objective Exam Vital Signs Date Time Temp Pulse Resp B/P (MAP) Pulse Ox O2 Delivery O2 Flow Rate FiO2 06/06/19 11:49 96 Nasal Cannula 4.00 06/06/19 08:00 36.0 80 24 170/95 (120) 92 Nasal Cannula 4.00 06/06/19 08:00 95 Nasal Cannula 4.00 06/06/19 07:58 92 Nasal Cannula 4.00 06/06/19 00:52 97 Nasal Cannula 4.00 06/06/19 00:00 36.4 70 22 163/83 (109) 95 Nasal Cannula 4.00 06/05/19 21:32 91 Nasal Cannula 4.00 06/05/19 20:56 175/82 (113) 06/05/19 20:00 Nasal Cannula 4.00 06/05/19 19:35 36.9 69 22 168/88 (114) 95 Nasal Cannula 4.00 06/05/19 19:00 97 Nasal Cannula 4.00 06/05/19 15:45 37.6 73 20 148/80 (102) 94 Nasal Cannula 4.00 06/05/19 15:00 94 Nasal Cannula 4.00 I & O 06/06/19 07:00 Intake Total 5310 ml Output Total 2600 ml Balance 2710 ml Capillary Refill : Less Than 3 Seconds General Appearance: No Apparent Distress Neck: Supple Respiratory: Decreased Breath Sounds, Rales (left base), Rhonci (left bas) Cardiovascular: Regular Rate, Rhythm, Systolic Murmur Gastrointestinal: normal bowel sounds, non tender, soft, distended (mild) Extremity: Non Tender, No Calf Tenderness, No Pedal Edema Neurologic/Psychiatric: Alert, Oriented x3 Skin: Warm/Dry Results Lab Microbiology 06/05/19 Influenza Types A,B Antigen (VY) - Final, Complete Assessment/Plan Assessment/Plan Assess & Plan/Chief Complaint 1. Acute Respiratory Distress--on oxygen 2. Acute Exacerbation of COPD--on IV solumedrol, SVNS 3. Bibasilar Pneumonia--on zosyn, repeat CXR in AM 4. Hypertension--on amlodopine, extra lisinopril this morning 5. Seizure Disorder--back on home meds 6. Lung Cancer with Mets--last chemo treatment on 06/04/19 Clinical Quality Measures Admission Status Admission Dx 1. Acute Respiratory Distress--admit for treatment, oxygen/respiratory support 2. Acute Exacerbation of COPD--IV solumedrol, SVNS, oxygen 3. Bibasilar Pneumonia--start Zosyn, lovenox for DVT prophylaxis and famotodine for stress ulcer prophylaxis 4. Seizure Disorder--home antieleptics restarted 5. Hypertension--restarted amlodopine 6. Lung Cancer with Mets--patient had chemo treatment on 06/04/19 DVT/VTE Risk/Contraindication: Risk Factor Score Per Nursin RFS Level Per Nursing on Admit: 4+=Very High MYRNA MERCADO DO Jun 06, 2019 13:05
[2019-06-06] MEDS ORDERED: lisINopril 20 MG (PRINIVIL) TABLET ONE (14:19)
[2019-06-06 17:00] VITALS: BP 143/83
[2019-06-06] MEDS: DOCUSATE SODIUM 100 MG (COLACE) CAP PO SCH (19:56)
[2019-06-06 23:28] VITALS: BP 116/71
[2019-06-07] MEDS: PIPERACILLIN/TAZO 4.5 GM/NS 100 ML IV SCH ×4 (02:15→10:12)
[2019-06-07] MEDS: lamoTRIgine 25 MG (LaMICtal) TAB PO SCH (02:15)
[2019-06-07] MEDS: carBAMazepine 200 MG (TEGretol) TAB PO SCH ×2 (02:20→08:54)
[2019-06-07] MEDS: RT-ALBUTEROL/IPRATROPIUM 3 ML (DUONEB) VIAL IH SCH ×4 (02:54→13:59)
[2019-06-07] MEDS: methylPREDNISolone 40 MG/ML (Solu-MEDROL) VIAL IV SCH ×2 (05:04→11:40)
[2019-06-07 05:34] LABS: BASOPHILS % (AUTO) 0 % (0-10); EOSINOPHILS % (AUTO) 0 % (0-10); HEMATOCRIT 35 % (40-54); HEMOGLOBIN 11.4 G/DL (13.3-17.7); LYMPHOCYTES # (AUTO) 0.5 X 10^3 (1.0-4.0); LYMPHOCYTES % (AUTO) 6 % (12-44); MEAN CORPUSCULAR HEMOGLOBIN 28 PG (25-34); MEAN CORPUSCULAR HGB CONC 32 G/DL (32-36); MEAN CORPUSCULAR VOLUME 88 FL (80-99); MEAN PLATELET VOLUME 8.5 FL (7.4-10.4); MONOCYTES % (AUTO) 11 % (0-12); NEUTROPHILS # (AUTO) 7.7 X 10^3 (1.8-7.8); NEUTROPHILS % (AUTO) 84 % (42-75); PLATELET COUNT 393 10^3/uL (130-400); RED CELL DISTRIBUTION WIDTH 14.3 % (10.0-14.5); WHITE BLOOD COUNT 9.2 10^3/uL (4.3-11.0)
[2019-06-07 06:07] LABS: ALANINE AMINOTRANSFERASE 12 U/L (0-55); ALBUMIN 3.7 GM/DL (3.2-4.5); ALKALINE PHOSPHATASE 131 U/L (40-136); BILIRUBIN,TOTAL 0.1 MG/DL (0.1-1.0); BUN/CREATININE RATIO 11; CALCIUM 8.8 MG/DL (8.5-10.1); CARBON DIOXIDE 28 MMOL/L (21-32); CHLORIDE 89 MMOL/L (98-107); CREATININE SERUM 0.74 MG/DL (0.60-1.30); GFR ESTIMATED > 60; GLUCOSE 142 MG/DL (70-105); SODIUM 127 MMOL/L (135-145)
[2019-06-07 06:33] LABS: POTASSIUM 4.3 MMOL/L (3.6-5.0)
[2019-06-07] MEDS: RT-ADVAIR HFA 115/21 MCG PER PUFF IH SCH (07:24)
[2019-06-07 08:00] VITALS: BP 131/79
--- NOTE | 2019-06-07 08:02 | Progress Note ---
Subjective Time Seen by a Provider: 07:59 Subjective/Events-last exam Patient wants to go home today. Patient feels 75 percent better. Patient sodium 127 and he knows that. To wait for chest x-ray. Nurse to call me at 11 a.m. Objective Exam Vital Signs Date Time Temp Pulse Resp B/P (MAP) Pulse Ox O2 Delivery O2 Flow Rate FiO2 06/07/19 07:24 92 Nasal Cannula 4.00 06/07/19 02:54 92 Nasal Cannula 4.00 06/06/19 23:28 37.1 79 18 116/71 (86) 93 Nasal Cannula 4.00 06/06/19 21:44 92 Nasal Cannula 4.00 06/06/19 19:45 Nasal Cannula 4.00 06/06/19 18:40 92 Nasal Cannula 4.00 06/06/19 17:00 36.0 70 20 143/83 (103) 94 Nasal Cannula 4.00 06/06/19 16:07 94 Nasal Cannula 4.00 06/06/19 11:49 96 Nasal Cannula 4.00 06/06/19 08:00 36.0 80 24 170/95 (120) 92 Nasal Cannula 4.00 06/06/19 08:00 95 Nasal Cannula 4.00 I & O 06/07/19 07:00 Intake Total 4200 ml Output Total 3760 ml Balance 440 ml Capillary Refill : Less Than 3 SecondsLess Than 3 Seconds General Appearance: No Apparent Distress HEENT: Normal ENT Inspection Neck: Full Range of Motion, Normal Inspection Respiratory: No Accessory Muscle Use, No Respiratory Distress, Decreased Breath Sounds Cardiovascular: Regular Rate, Rhythm, No Murmur Gastrointestinal: non tender, soft Results Lab Laboratory Tests 06/07/19 05:15 Laboratory Tests 06/07/19 05:15: White Blood Count 9.2, Red Blood Count 4.01L, Hemoglobin 11.4L, Hematocrit 35L, Mean Corpuscular Volume 88, Mean Corpuscular Hemoglobin 28, Mean Corpuscular He moglobin Concent 32, Red Cell Distribution Width 14.3, Platelet Count 393, Mean Platelet Volume 8.5, Neutrophils (%) (Auto) 84H, Lymphocytes (%) (Auto) 6L, Mo nocytes (%) (Auto) 11, Eosinophils (%) (Auto) 0, Basophils (%) (Auto) 0, Neutrophils # (Auto) 7.7, Lymphocytes # (Auto) 0.5L, Monocytes # (Auto) 1.0, Eosinophils # (Auto) 0.0, Basophils # (Auto) 0.0, Sodium Level 127L, Potassium Level 4.3, Chloride Level 89L, Carbon Dioxide Level 28, Anion Gap 10, Blood Urea Nitrogen 8, Creatinine 0.74, Estimat Glomerular Filtration Rate > 60, BUN/Creatinine Ratio 11, Glucose Level 142H, Calcium Level 8.8, Corrected Calcium 9.0, Total Bilirubin 0.1, Aspartate Amino Transf (AST/SGOT) 31, Alanine Aminotransferase (ALT/SGPT) 12, Alkaline Phosphatase 131, Total Protein 8.0, Albumin 3.7 Microbiology 06/05/19 Influenza Types A,B Antigen (VY) - Final, Complete Assessment/Plan Assessment/Plan Assess & Plan/Chief Complaint My bacilli pneumonia. COPD with acute exacerbation. Acute respiratory distress. Hyponatremia. Lung cancer. Seizures. Hypertension. Patient wants to be discharged today. Patient will be discharged if chest x-ray shows improvement Clinical Quality Measures DVT/VTE Risk/Contraindication: Risk Factor Score Per Nursin RFS Level Per Nursing on Admit: 4+=Very High AMANDEEP GENAO DO Jun 07, 2019 08:02
[2019-06-07] MEDS ORDERED: PRED10TA22 PO (08:05)
[2019-06-07] MEDS ORDERED: CEFD300C3 PO (08:05)
--- NOTE | 2019-06-07 08:22 | Diagnostic Imaging Report ---
INDICATION: Pneumonia follow-up. COMPARISON: 06/05/2019 TECHNIQUE: 2 radiographs of the chest dated 06/07/2019. FINDINGS: Right-sided Port-A-Cath is again identified. The cardiac silhouette is within normal limits in size. Persistent bibasilar scarring is again noted. Previously noted right basilar opacities are improved since the prior examination. No new focal pulmonary opacity. No significant pleural effusion. No pneumothorax. No acute osseous abnormality. IMPRESSION: Improved bibasilar infiltrate and/or edema, particularly within the right lung base superimposed upon background chronic interstitial lung changes. Stable right-sided Port-A-Cath. Dictated by: Dictated on workstation # [id number]
[2019-06-07] MEDS: DOCUSATE SODIUM 100 MG (COLACE) CAP PO SCH (08:53)
[2019-06-07] MEDS: GABAPENTIN 600 MG (NEURONTIN) TAB PO SCH (08:54)
[2019-06-07] MEDS: PHENYTOIN 100 MG (DILANTIN) CAP PO SCH (08:54)
[2019-06-07] MEDS: amLODIPine 5 MG (NORVASC) TAB PO SCH (08:54)
[2019-06-07] MEDS: FAMOTIDINE 20 MG (PEPCID) TABLET PO SCH (08:54)
[2019-06-07] MEDS ORDERED: lisINopril 20 MG (PRINIVIL) TABLET PO SCH (09:00)
[2019-06-07] MEDS ORDERED: HYDR-4226 PO (09:53)
--- NOTE | 2019-06-07 10:27 | NUR ---
SPOKE WITH THE PT, WENT THRU THE EXT MED HISTORY, CALLED [facility] AND CALLED DR. GENAO TO COMPLETE THE MED REC. PT WAS HERE MID-MAY AND I SPOKE WITH HIM ON 05-18-2019 AND RECEIVED A COMPLETE HISTORY THEM. ATORVASTATIN 20MG: THE DIRECTIONS IN MAY 2019 WERE 1 TAB DAILY HOWEVER DUE TO TREATMENT HE IS NOW ONLY TAKING 10MG DAILY (HE IS BREAKING THE 20MG IN HALF) LISINOPRIL WAS PUT ON THE MED REC OVER THE WEEKEND USING A MED LIST THE PT'S GIRLFRIEND HAD. I CAN NOT SEE THIS MED ON THE EXT HISTORY AND WHEN I CALLED [facility] IT HAD NOT BEEN FILLED SINCE NOV 2017. I SPOKE WITH DR. MARTÍNEZ OFFICE AND THEY SAID YES HE HAD GIVEN HIM AN RX BUT IT WAS "QUITE AWHILE BACK". DUE TO THE LONG DATING I TOOK IT OFF THE MED REC. ALL OTHER MEDS SHOW ON THE EXT MED HIST AND THERE ARE NO DISCREPANCIES.
[2019-06-07] MEDS: ENOXAPARIN 40 MG/0.4 ML (LOVENOX) SYR SC SCH (11:38)
[2019-06-07 14:04] VITALS: BP 131/79
--- NOTE | 2019-06-08 07:42 | Discharge Summary ---
Diagnosis/Chief Complaint Date of Admission Jun 05, 2019 at 02:11 Date of Discharge Jun 07, 2019 at 14:00 Discharge Date: Jun 07, 2019 Discharge Time: 07:39 Discharge Diagnosis Short of breath. Pneumonia. COPD exacerbation. Lung cancer. Seizures. Hyponatremia. Hypertension Discharge Summary Discharge Physical Examination Allergies: Coded Allergies: aspirin (Unverified Allergy, Mild, DOES NOT WORK WELL W/ OTHER MEDS, 10/05/18) ibuprofen (Unverified Allergy, Mild, 10/05/18) Vitals & I&Os Vital Signs Date Time Temp Pulse Resp B/P (MAP) Pulse Ox O2 Delivery O2 Flow Rate FiO2 06/07/19 14:04 36.6 87 22 131/79 98 Nasal Cannula 4.00 Hospital Course Patient in hospital improved. Patient wanted to go home. Patient discharged Labs (last 24 hrs) Laboratory Tests 06/05/19 01:08: White Blood Count 8.6, Red Blood Count 4.26L, Hemoglobin 12.0L, Hematocrit 38L, Mean Corpuscular Volume 89, Mean Corpuscular Hemoglobin 28, Mean Corpuscular Hemoglobin Concent 32, Red Cell Distribution Width 14.4, Platelet Count 390, Mean Platelet Volume 8.3, Neutrophils (%) (Auto) 74, Lymphocytes (%) (Auto) 12, Monocytes (%) (Auto) 14H, Eosinophils (%) (Auto) 0, Basophils (%) (Auto) 0, Neut rophils # (Auto) 6.4, Lymphocytes # (Auto) 1.0, Monocytes # (Auto) 1.2H, Eosino phils # (Auto) 0.0, Basophils # (Auto) 0.0, Sodium Level 134L, Potassium Level 4.4, Chloride Level 93L, Carbon Dioxide Level 29, Anion Gap 12, Blood Urea Nitrogen 6L, Creatinine 0.72, Estimat Glomerular Filtration Rate > 60, BUN/Creatinine Ratio 8, Glucose Level 125H, Calcium Level 9.3, Corrected Calcium 9.1, Total Bilirubin 0.2, Aspartate Amino Transf (AST/SGOT) 16, Alanine Aminotransferase (ALT/SGPT) 13, Alkaline Phosphatase 179H, C-Reactive Protein High Sensitivity 6.05H, Total Protein 7.9, Albumin 4.3 06/07/19 05:15: White Blood Count 9.2, Red Blood Count 4.01L, Hemoglobin 11.4L, Hematocrit 35L, Mean Corpuscular Volume 88, Mean Corpuscular Hemoglobin 28, Mean Corpuscular Hemoglobin Concent 32, Red Cell Distribution Width 14.3, Platelet Count 393, Mean Platelet Volume 8.5, Neutrophils (%) (Auto) 84H, Lymphocytes (%) (Auto) 6L, Monocytes (%) (Auto) 11, Eosinophils (%) (Auto) 0, Basophils (%) (Auto) 0, Neutrophils # (Auto) 7.7, Lymphocytes # (Auto) 0.5L, Monocytes # (Auto) 1.0, Eosinophils # (Auto) 0.0, Basophils # (Auto) 0.0, Sodium Level 127L, Potassium Level 4.3, Chloride Level 89L, Carbon Dioxide Level 28, Anion Gap 10, Blood Urea Nitrogen 8, Creatinine 0.74, Estimat Glomerular Filtration Rate > 60, BUN/Creatinine Ratio 11, Glucose Level 142H, Calcium Level 8.8, Corrected Calcium 9.0, Total Bilirubin 0.1, Aspartate Amino Transf (AST/SGOT) 31, Alanine Aminotransferase (ALT/SGPT) 12, Alkaline Phosphatase 131, Total Protein 8.0, Albumin 3.7 Microbiology 06/05/19 Influenza Types A,B Antigen (VY) - Final, Complete Laboratory Tests 06/05/19 01:08 06/07/19 05:15 Pending Labs Microbiology Date/Time Source Procedure Growth Status 06/05/19 01:08 Nasopharynx Influenza Types A,B Antigen (VY) - Final Complete Laboratory Tests 06/05/19 01:08: White Blood Count 8.6, Red Blood Count 4.26, Hemoglobin 12.0, Hematocrit 38, Mean Corpuscular Volume 89, Mean Corpuscular Hemoglobin 28, Mean Corpuscular Hemoglobin Concent 32, Red Cell Distribution Width 14.4, Platelet Count 390, Mean Platelet Volume 8.3, Neutrophils (%) (Auto) 74, Lymphocytes (%) (Auto) 12, Monocytes (%) (Auto) 14, Eosinophils (%) (Auto) 0, Basophils (%) (Auto) 0, Neutrophils # (Auto) 6.4, Lymphocytes # (Auto) 1.0, Monocytes # (Auto) 1.2, Eosinophils # (Auto) 0.0, Basophils # (Auto) 0.0, Sodium Level 134, Potassium Level 4.4, Chloride Level 93, Carbon Dioxide Level 29, Anion Gap 12, Blood Urea Nitrogen 6, Creatinine 0.72, Estimat Glomerular Filtration Rate > 60, BUN/Creat inine Ratio 8, Glucose Level 125, Calcium Level 9.3, Corrected Calcium 9.1, Total Bilirubin 0.2, Aspartate Amino Transf (AST/SGOT) 16, Alanine Aminotransferase (ALT/SGPT) 13, Alkaline Phosphatase 179, C-Reactive Protein High Sensitivity 6.05, Total Protein 7.9, Albumin 4.3 06/07/19 05:15: White Blood Count 9.2, Red Blood Count 4.01, Hemoglobin 11.4, Hematocrit 35, Mean Corpuscular Volume 88, Mean Corpuscular Hemoglobin 28, Mean Corpuscular Hemoglobin Concent 32, Red Cell Distribution Width 14.3, Platelet Count 393, Mean Platelet Volume 8.5, Neutrophils (%) (Auto) 84, Lymphocytes (%) (Auto) 6, Monocytes (%) (Auto) 11, Eosinophils (%) (Auto) 0, Basophils (%) (Auto) 0, Neutr ophils # (Auto) 7.7, Lymphocytes # (Auto) 0.5, Monocytes # (Auto) 1.0, Eosinophils # (Auto) 0.0, Basophils # (Auto) 0.0, Sodium Level 127, Potassium Level 4.3, Chloride Level 89, Carbon Dioxide Level 28, Anion Gap 10, Blood Urea Nitrogen 8, Creatinine 0.74, Estimat Glomerular Filtration Rate > 60, B UN/Creatinine Ratio 11, Glucose Level 142, Calcium Level 8.8, Corrected Calcium 9.0, Total Bilirubin 0.1, Aspartate Amino Transf (AST/SGOT) 31, Alanine Aminotransferase (ALT/SGPT) 12, Alkaline Phosphatase 131, Total Protein 8.0, Albumin 3.7 Discussion & Recommendations Follow-up in office this Discharge Home Medications: Active Scripts Active Prednisone 10 Mg Tab.ds.pk 10 Mg PO DAILY take 40 mg day 1 take 30 mg day 2 take 20 mg day 3 take 19 mg day 4 stop when they aare all gone Cefdinir 300 Mg Capsule 300 Mg PO BID 5 Days Reported Hydrocodone/Acetaminophen 5 MG/325 MG TAB (Hydrocodone/Acetaminophen) 1 Each Tablet 1 Tab PO BID PRN MDD 10 TABS Lamictal (Lamotrigine) 100 Mg Tablet 100 Mg PO 1500,2300 PT TAKES 100MG AT 1500 & 2300 Ropinirole HCl 0.5 Mg Tablet 0.5 Mg PO 1500 Advair Hfa 115-21 Mcg Inhaler (Fluticasone/Salmeterol) 12 Gm Hfa.aer.ad 1 Puff IH BID Symbicort 160-4.5 Mcg Inhaler (Budesonide/Formoterol Fumarate) 10.2 Gm Hfa.aer.ad 2 Puff INH BID PRN Atorvastatin Calcium 20 Mg Tablet 10 Mg PO 0300 TAKES OF A 20MG ONCE DAILY Meloxicam 7.5 Mg Tablet 15 Mg PO 1500 Omeprazole 20 Mg Capsule.dr 20 Mg PO DAILY PRN Carbamazepine 200 Mg Tablet 400 Mg PO 1500 TAKES 2 (200 MG) TABLETS Amlodipine Besylate 5 Mg Tablet 5 Mg PO 0800 Lamotrigine 25 Mg Tablet 25 Mg PO 0300, 1500 TAKES 25MG @ 0300 25MG + 100MG @1500 Proair Hfa (Albuterol Sulfate) 1 Puff Puff 2 Puff IH Q6H PRN Spiriva (Tiotropium [place]) 1 Inh Aerp 1 Cap IH 1500 Albuterol Sulfate 2.5 Mg/3 Ml Vial.neb 2.5 Mg NEB Q4H PRN Tegretol (Carbamazepine) 200 Mg Tablet 200 Mg PO 0300,0800,2300 Phenytoin Sodium Extended 100 Mg Capsule 100 Mg PO 2300 Phenytoin Sodium Extended 100 Mg Capsule 200 Mg PO 0800,1500 TAKES 2 (100 MG) CAPSULES Gabapentin 600 Mg Tablet 600 Mg PO 0800,1500 Gabapentin 300 Mg Capsule 300 Mg PO 2300 Instructions to patient/family Please see electronic discharge instructions given to patient. Clinical Quality Measures DVT/VTE Risk/Contraindication: Risk Factor Score Per Nursin RFS Level Per Nursing on Admit: 4+=Very High AMANDEEP GENAO DO Jun 08, 2019 07:42
--- OUTSIDE RECORDS SUMMARY | 2019-06-08 21:38 | XMS REPORT | Clinical Summary ---
Author Author [facility] Organization [facility] Address Unknown Phone Unavailable Care Team Providers Care Spouter Name Role Phone Efra Valentino MD Unavailable Unavailable Source Comments Some departments are not documenting in the electronic medical record. If you d o not see the information that you expected, contact Release of Information in [facility] [employer] Information Management department at [phone] for further assistan ce in locating additional records.[facility] Allergies Comments Active Allergy Reactions Severity [...] Take 1 Cap by 180 Cap 11 0 300 mg capsule mouth daily. 5 Taking 6 tabs daily Active lamoTRIgine (LAMICTAL) Take 1 Tab by 90 Tab 6 0 100 mg tablet mouth three 5 times [...] mg tablet TAKE ONE 90 Tab 2 01/28 TABLET BY 6 MOUTH THREE TIMES A DAY Active Problems Problem Noted Date Seizures 10/22/2013 Hemiparesis 10/22/2013 Asthma 10/22/2013 COPD (chronic obstructive pulmonary disease) 014 Hyperlipidemia 10/22/2013 Weight loss 10/22/2013 Family History Medical History Relation Name Comments Hypertension Father Relation Name Status Comments Father Social History Date Tobacco Use Types Packs/Day Years Used Current Every Day Smoker Cigarettes 1.5 46 Smokeless Tobacco: Never Used Drinks/Week oz/Week Comments Alcohol Use No Sex Assigned at Date Recorded Not on file Industry Job Start Date Occupation Not on file Not on file Not on file Travel End Travel History Travel Start No recent travel history available. Last Filed Vital Signs Reading Time Taken Comments Vital Sign 153/85 10/28/2014 11:59 AM CDT Blood Pressure 58 10/28/2014 11:59 AM CDT Pulse 36.8 C (98.3 F) 10/22/2013 10:21 AM CDT Temperature - - Respiratory Rate - - Oxygen Saturation - - Inhaled Oxygen Concentration 77.8 kg (171 lb 8 oz) 10/28/2014 11:59 AM CDT Weight 188 cm (6' 2") 10/28/2014 11:59 AM CDT Height 22.02 10/28/2014 11:59 AM CDT Body Mass Index Plan of Treatment Health Maintenance Due Date Last Done Comments HEPATITIS C SCREENING 1953 DTAP/TDAP VACCINES (1 - 1964 Tdap) HIV SCREENING 1968 PHYSICAL (COMPREHENSIVE) 07/17/1971 EXAM COLORECTAL CANCER 07/17/2003 SCREENING SHINGLES RECOMBINANT 07/17/2003 VACCINE (1 of 2) ABDOMINAL AORTIC ANEURYSM 2018 SCREENING PNEUMONIA (PCV13/PPSV23) 2018 VACCINES (1 of 2 - PCV13) INFLUENZA VACCINE 10/29/2018 Results Not on filefrom Last 3 Months
--- OUTSIDE RECORDS SUMMARY | 2019-06-08 21:54 | XMS REPORT | Continuity of Care Document ---
Author Organization Unknown Address Unknown Phone Unavailable Allergies Active Description Code Type Severity Reaction Onset Reported/Identified Relationship to Patient Clinical Status Yes AMOXILLEN AMOXILLEN Mild N/A 07/17/2008 Yes Penicillins [id number] Drug Aller gy Mild N/A 08/02/2008 Yes aspirin Drug Allergy N/A N/A 12/10/2013 Yes aspirin [id number] Drug Allergy Mild DOES NOT WORK W 10/05/2018 Yes ibuprofen [id number] Drug Allergy Mild N/A 10/05/2018 Medications There is no data. Problems Date Dx Coded Attending Type Code Diagnosis Diagnosed By 02/27/1422 STEPHEN PRICE Ot C34.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, LEFT B 02/27/1422 STEPHEN PRICE Ot C79.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 02/27/1422 STEPHEN PRICE Ot E78.5 HYPERLIPIDEMIA, UNSPECIFIED 02/27/1422 STEPHEN PRICE Ot G40.909 EPILEPSY, UNSP, NOT INTRACTABLE, WITHOUT 02/27/1422 STEPHEN PRICE Ot J43.9 EMPHYSEMA, UNSPECIFIED 02/27/1422 STEPHEN PRICE Ot Z51.11 ENCOUNTER FOR ANTINEOPLASTIC CHEMOTHERAP 02/27/1422 STEPHEN PRICE Ot Z79.899 OTHER [facility] (CURRENT) DRUG THERAPY 02/27/1422 STEPHEN PRICE Ot Z87.891 PERSONAL HISTORY OF NICOTINE DEPENDENCE 12/02/2009 Ot 380.4 IMPA CTED CERUMEN 12/02/2009 Ot 388.30 TIN NITUS NOS 06/26/2010 Ot 272.4 HYPE RLIPIDEMIA NEC/NOS 06/26/2010 Ot 276.1 HYPO SMOLALITY 06/26/2010 Ot 276.8 HYPO POTASSEMIA 06/26/2010 Ot 345.90 EPI LEPSY UNSPEC W/O MENTION INTRACTABLE 06/26/2010 Ot 493.90 AST HMA, UNSPECIFIED 06/26/2010 Ot 574.10 CHO LELITH W CHOLECYS NEC 06/26/2010 Ot V58.69 OTH MED,LT,CURRENT USE 05/18/2011 Ot 491.22 OBS TRUCTIVE CHRONIC BRONCHITIS WITH ACUT 05/18/2011 Ot 786.2 COUGH 07/24/2011 Ot 345.90 EPI LEPSY UNSPEC W/O MENTION INTRACTABLE 07/24/2011 Ot 719.7 DIFF ICULTY IN WALKING 07/24/2011 Ot 780.4 DIZZ INESS AND GIDDINESS 07/24/2011 Ot 784.59 OTH ER SPEECH DISTURBANCE 07/24/2011 Ot E936.1 ADV EFF HYDANTOIN DERIV 07/24/2011 Ot V58.69 OTH MED,LT,CURRENT USE 08/19/2012 491.21 CHR ONIC BRONCHITIS - WITH ACUTE EXACERBATION 08/19/2012 DIPESH MIKE APRN R 491.21 CHRONIC BRONCHITIS - WITH ACUTE EXACERBATION 12/23/2012 NOREEN CHÁVEZ APRN Ot 807.01 FRACTURE ONE RIB-CLOSED 12/23/2012 NOREEN CHÁVEZ APRN Ot 959.11 OTH INJURY OF CHEST WALL 12/23/2012 NOREEN CHÁVEZ APRN Ot E000.8 OTHER EXTERNAL CAUSE STATUS 12/23/2012 NOREEN CHÁVEZ APRN Ot E888.9 FALL NOS 02/16/2013 NOREEN CHÁVEZ APRN Ot 824 .8 FX ANKLE NOS-CLOSED 02/16/2013 NOREEN CHÁVEZ APRN Ot 959 .7 LOWER LEG INJURY NOS 02/16/2013 NOREEN CHÁVEZ APRN Ot E000.0 CIVILIAN ACTIVITY DONE FOR INCOME OR PAY 02/16/2013 NOREEN CHÁVEZ APRN Ot E888.9 FALL NOS 09/17/2013 CELESTE BILLY DO Ot 780.39 OTHER CONVULSIONS 09/17/2013 CELESTE BILLY DO Ot 845.10 SPRAIN OF FOOT NOS 09/17/2013 CELESTE BILLY DO Ot 910.0 ABRASION HEAD 09/17/2013 CELESTE BILLY DO Ot 92 0 CONTUSION FACE/SCALP/NCK 09/17/2013 CELESTE BILLY DO Ot E029.9 OTHER ACTIVITY 09/17/2013 CELESTE BILLY DO Ot E917.4 STAT OB W/O SUB FALL NEC 09/17/2013 CELESTE BILLY DO Ot E927.0 OVEREXERTION FROM SUDDEN STRENUOUS MOVEM 09/17/2013 MARIAJOSE LASSITER CELESTE Erma Ot V06.1 [id number], COMBINED [ 11/02/2013 VANESSA GUTHRIE MD Ot 873.0 OPEN WOUND OF SCALP 11/02/2013 VANESSA GUTHRIE MD Ot 959.01 HEAD INJURY, NOS 11/02/2013 VANESSA GUTHRIE MD Ot E885.9 FALL FROM SLIPPING, TRIPPING, OR STUMBLI 11/08/2013 VANESSA GUTHRIE MD Ot V58.32 ENCOUNTER FOR REMOVAL OF SUTURES 12/10/2013 DIPESH MIKE APRN R 305.1 TOBACCO ABUSE 04/26/2014 Ot 272.4 04/26/2014 [...] Pineda Ot 789.00 04/26/2014 GELLENDER DO, AMANDEEP A Ot 783.21 04/26/2014 GELLENDER DO, AMANDEEP A Ot 789.00 04/26/2014 GELLENDER DO, AMANDEEP Miriam Ot 272.4 04/26/2014 GELLENDER DO, AMANDEEP A Ot 496 04/26/2014 GELLENDER DO, AMANDEEP Miriam Ot 780.39 04/26/2014 GELLENDER DO, AMANDEEP Pineda Ot 729.81 04/26/2014 GELLENDER DO, AMANDEEP Pineda Ot 780.79 04/26/2014 YELITZA ANTHONY MD Ot 780.3 9 04/26/2014 GELLENDER DO, AMANDEEP Pineda Ot 825.25 04/26/2014 GELLENDER DO, AMANDEEP Pineda Ot E928.9 04/26/2014 GELLENDER DO, AMANDEEP Pineda Ot 780.39 04/26/2014 GELLENDER DO, AMANDEEP Pineda Ot 721.0 05/02/2014 Ot 272.4 05/02/2014 [...] Pineda Ot 786.2 05/02/2014 GELLENDER DO, AMANDEEP Pineda Ot 783.21 [...] Ot 780.79 05/02/2014 YELITZA ANTHONY MD Ot 780.3 9 05/02/2014 GELLENDER DO, AMANDEEP Pineda Ot 825.25 [...] Pineda Ot 490 05/16/2014 GELLENDER DO, AMANDEEP Pineda Ot 496 05/16/2014 GELLENDER DO, AMANDEEP Pineda Ot 783.21 05/16/2014 GELLENDER DO, AMANDEEP Pineda Ot 496 [...] Ot 780.79 05/16/2014 YELITZA ANTHONY MD Ot 780.3 9 05/16/2014 GELLENDER DO, AMANDEEP Pineda Ot 825.25 05/16/2014 GELLENDER DO, AMANDEEP Pineda Ot E928.9 05/16/2014 GELLENDER DO, AMANDEEP Pineda Ot 780.39 05/16/2014 GELLENDER DO, AMANDEEP Pineda Ot 721.0 05/16/2014 GELLENDER DO, AMANDEEP Pineda Ot 496 05/16/2014 GELLENDER DO, AMANDEEP Pinead Ot 780.39 05/16/2014 Ot 272.4 05/16/2014 Ot [...] 780.79 05/25/2014 GABRIELLE RIOS, YELITZA Marie Ot 780.3 9 05/25/2014 GELLENDER DO, AMANDEEP A Ot 825.25 05/25/2014 GELLENDER DO, AMANDEEP Pineda Ot E928.9 05/25/2014 GELLENDER DO, AMANDEEP Pineda Ot 780.39 05/25/2014 GELLENDER DO, AMANDEEP A Ot 721.0 05/25/2014 GELLENDER DO, AMANDEEP A Ot 496 05/25/2014 GELLENDER DO, AMANDEEP Pineda [...] Ot 780.79 08/26/2014 YELITZA ANTHONY MD Ot 780.3 9 08/26/2014 GELLENDER DO, AMANDEEP Pineda Ot 825.25 [...] 780.79 08/26/2014 GABRIELLE RIOS, YELITZA Marie Ot 780.3 9 08/26/2014 GELLENDER DO, AMANDEEP Pineda Ot 825.25 [...] 780.39 11/10/2014 Ot 780.39 11/10/2014 GELLENDER DO, AMANDEPE Pineda Ot 490 11/10/2014 GELLENDER DO, AMANDEEP [...] 780.79 11/10/2014 GABRIELLE RIOS, YELITZA Marie Ot 780.3 9 11/10/2014 GELLENDER DO, AMANDEEP Pineda Ot 825.25 [...] 780.79 03/11/2015 GABRIELLE RIOS, YELITZA Marie Ot 780.3 9 03/11/2015 GELLENDER DO, AMANDEEP Pineda Ot 825.25 [...] Ot 780.79 03/11/2015 YELITZA ANTHONY MD Ot 780.3 9 03/11/2015 GELLENDER DO, AMANDEEP Pineda Ot 825.25 [...] GELLENDER DO, AMANDEEP Pineda Ot 780.79 03/13/2015 GABRIELLE RIOS, YELITZA Marie Ot 780.3 9 03/13/2015 GELLENDER DO, AMANDEEP Pineda Ot 825.25 [...] NOT INTRACTABLE, WITHOUT 03/14/2015 GELLENDER DO, AMANDEEP Pineda Ot I10 ESSENTIAL (PRIMARY) HYPERTENSION 03/14/2015 GELLENDER [...] 783.21 06/14/2015 GELLENDER DO, AMANDEEP Pineda Ot 789.00 06/14/2015 GELLENDER DO, AMANDEEP Pineda Ot 783.21 06/14/2015 GELLENDER DO, AMANDEEP Pineda Ot 789.00 06/14/2015 GELLENDER DO, AMANDEEP Pineda Ot 272.4 06/14/2015 GELLENDER DO, AMANDEEP Pineda Ot 496 06/14/2015 GELLENDER DO, AMANDEEP Pineda Ot 780.39 06/14/2015 GELLENDER DO, AMANDEEP Pineda Ot 729.81 06/14/2015 GELLENDER DO, AMANDEEP Pineda Ot 780.79 06/14/2015 GABRIELLE RIOS, YELITZA Marie Ot 780.3 9 06/14/2015 GELLENDER DO, AMANDEEP Pineda Ot 825.25 06/14/2015 GELLENDER DO, AMANDEEP Pineda Ot E928.9 06/14/2015 GELLENDER DO, AMANDEEP Pineda Ot 780.39 06/14/2015 GELLENDER DO, AMANDEEP Pineda Ot 721.0 06/14/2015 GELLENDER DO, AMANDEEP Pineda Ot 496 06/14/2015 GELLENDER DO, AMANDEEP Pineda Ot 780.39 06/14/2015 GELLENDER DO, AMANDEEP Pineda Ot E78.5 06/14/2015 GELLENDER DO, AMANDEEP Pineda Ot J44.9 06/14/2015 GELLENDER DO, AMANDEEP Miriam Ot M79.672 06/14/2015 GELLENDER DO, AMANDEEP Miriam Ot R56.9 06/14/2015 GELLENDER DO, AMANDEEP Miriam Ot Z87.81 06/15/2015 GELLENDER DO, AMANDEPE Miriam Ot E78.5 HYPERLIPIDEMIA, UNSPECIFIED 06/15/2015 GELLENDER DO, AMANDEEP Miriam Ot E87.1 HYPO-OSMOLALITY AND HYPONATREMIA 06/15/2015 GELLENDER DO, AMANDEEP Pineda Ot F17.210 NICOTINE DEPENDENCE, CIGARETTES, UNCOMPL 06/15/2015 GELLENDER DO, AMANDEEP Pineda Ot G40.909 EPILEPSY, UNSP, NOT INTRACTABLE, WITHOUT 06/15/2015 GELLENDER DO, AMANDEEP Pineda Ot I10 ESSENTIAL (PRIMARY) HYPERTENSION 06/15/2015 GELLENDER DO, AMANDEEP Pineda Ot J44.1 CHRONIC OBSTRUCTIVE PULMONARY DISEASE W 06/15/2015 GELLENDER DO, AMANDEEP Pineda Ot R26.81 UNSTEADINESS ON FEET 07/10/2015 GELLENDER DO, AMANDEEP Pineda Ot E78.5 07/14/2015 GELLENDER DO, AMANDEEP Pineda Ot E78.5 HYPERLIPIDEMIA, UNSPECIFIED 07/14/2015 GELLENDER DO, AMANDEEP Pineda Ot E78.5 HYPERLIPIDEMIA, UNSPECIFIED 07/14/2015 GELLENDER DO, AMANDEEP Pineda Ot J44.9 CHRONIC OBSTRUCTIVE PULMONARY DISEASE, U 07/14/2015 GELLENDER DO, AMANDEEP Pineda Ot M79.672 PAIN IN LEFT FOOT 07/14/2015 GELLENDER DO, AMANDEEP Pineda Ot R56.9 UNSPECIFIED CONVULSIONS 07/14/2015 GELLENDER DO, AMANDEEP Pineda Ot Z87.81 PERSONAL HISTORY OF (HEALED) TRAUMATIC F 07/26/2015 GELLENDER DO, AMANDEEP Pineda Ot E78.5 HYPERLIPIDEMIA, UNSPECIFIED 08/10/2015 Ot 780.39 OTH ER CONVULSIONS 08/10/2015 Ot 272.4 HYPE RLIPIDEMIA NEC/NOS 08/10/2015 Ot 780.39 OTH ER CONVULSIONS 08/10/2015 Ot 496 CHR AI RWAY OBSTRUCT NEC 08/10/2015 Ot 786.2 COUGH 08/10/2015 Ot 780.39 OTH ER CONVULSIONS 08/10/2015 Ot 780.39 OTH ER CONVULSIONS 08/10/2015 GELLENDER DO, AMANDEEP Pineda Ot 490 BRONCHITIS NOS 08/10/2015 GELLENDER DO, AMANDEEP Pineda Ot 496 CHR AIRWAY OBSTRUCT NEC 08/10/2015 GELLENDER DO, AMANDEEP Pineda Ot 783.21 LOSS OF WEIGHT 08/10/2015 GELLENDER DO, AMANDEEP Pineda Ot 496 CHR AIRWAY OBSTRUCT NEC 08/10/2015 GELLENDER DO, AMANDEEP Pineda Ot 786.2 COUGH 08/10/2015 GELLENDER DO, AMANDEEP Pineda Ot 783.21 LOSS OF WEIGHT 08/10/2015 GELLENDER DO, AMANDEEP Pineda Ot 789.00 ABDOMINAL PAIN, UNSPECIFIED SITE 08/10/2015 AMANDEEP GENAO DO Ot 783.21 LOSS OF WEIGHT 08/10/2015 AMANDEEP GENAO DO Ot 789.00 ABDOMINAL PAIN, UNSPECIFIED SITE 08/10/2015 AMANDEEP GENAO DO Ot 272.4 HYPERLIPIDEMIA NEC/NOS 08/10/2015 AMANDEEP GENAO DO Miriam Ot 496 CHR AIRWAY OBSTRUCT NEC 08/10/2015 CHADWICK LASSITER, AMANDEEP Pineda Ot 780.39 OTHER CONVULSIONS 08/10/2015 CHADWICK LASSITER, AMANDEEP Pineda Ot 729.81 SWELLING OF LIMB 08/10/2015 CHADWICK LASSITER, AMANDEEP Miriam Ot 780.79 OTH MALAISE FATIGUE 08/10/2015 GABRIELLE RIOS, YELITZA Marie Ot 780.3 9 OTHER CONVULSIONS 08/10/2015 AMANDEEP GENAO DO Ot 825.25 FX METATARSAL-CLOSED 08/10/2015 CHADWICK LASSITER AMANDEEP Pineda Ot E928.9 ACCIDENT NOS 08/10/2015 AMANDEEP GENAO DO Miriam Ot 780.39 OTHER CONVULSIONS 08/10/2015 AMANDEEP GENAO DO Ot 721.0 CERVICAL SPONDYLOSIS 08/10/2015 AMANDEEP GENAO DO Ot 496 CHR AIRWAY OBSTRUCT NEC 08/10/2015 CHADWICK LASSITER, AMANDEEP Pineda Ot 780.39 OTHER CONVULSIONS 08/10/2015 AMANDEEP GENAO DO Ot E78.5 HYPERLIPIDEMIA, UNSPECIFIED 08/10/2015 AMANDEEP GENAO DO Ot J44.9 CHRONIC OBSTRUCTIVE PULMONARY DISEASE, U 08/10/2015 AMANDEEP GENAO DO Ot M79.672 PAIN IN LEFT FOOT 08/10/2015 AMANDEEP GENAO DO Ot R56.9 UNSPECIFIED CONVULSIONS 08/10/2015 CHADWICK LASSITER, AMANDEEP Pineda Ot Z87.81 PERSONAL HISTORY OF (HEALED) TRAUMATIC F 08/10/2015 CHADWICK LASSITERAMANDEEP Ot E78.5 HYPERLIPIDEMIA, UNSPECIFIED 08/11/2015 Ot 780.39 OTH ER CONVULSIONS 08/11/2015 Ot 272.4 HYPE RLIPIDEMIA NEC/NOS 08/11/2015 Ot 780.39 OTH ER CONVULSIONS 08/11/2015 Ot 496 CHR AI RWAY OBSTRUCT NEC 08/11/2015 Ot 786.2 COUGH 08/11/2015 Ot 780.39 OTH ER CONVULSIONS 08/11/2015 Ot 780.39 OTH ER CONVULSIONS 08/11/2015 GELLENDER DO, AMANDEEP Pineda Ot 490 BRONCHITIS NOS 08/11/2015 GELLENDER DO, AMANDEEP Pineda Ot 496 CHR AIRWAY OBSTRUCT NEC 08/11/2015 GELLENDER DO, AMANDEEP Pineda Ot 783.21 LOSS OF WEIGHT 08/11/2015 GELLENDER DO, AMANDEEP Pineda Ot 496 CHR AIRWAY OBSTRUCT NEC 08/11/2015 GELLENDER DO, AMANDEEP Pineda Ot 786.2 COUGH 08/11/2015 GELLENDER DO, AMANDEEP Pineda Ot 783.21 [...] OTH MALAISE FATIGUE 08/11/2015 GABRIELLE RIOS, YELITZA Marie Ot 780.3 9 OTHER CONVULSIONS 08/11/2015 GELLENDER DOAMANDEEP Ot 825.25 FX METATARSAL-CLOSED 08/11/2015 GELLENDER DOAMANDEEP Ot E928.9 ACCIDENT NOS 08/11/2015 GELLENDER DO, AMANDEEP Pineda Ot 780.39 OTHER CONVULSIONS 08/11/2015 GELLENDER DO, AMANDEEP Pineda Ot 721.0 CERVICAL SPONDYLOSIS 08/11/2015 GELLENDER DO, AMANDEEP Pineda Ot 496 CHR AIRWAY OBSTRUCT NEC 08/11/2015 GELLENDER DO, AMADNEEP Pineda Ot 780.39 OTHER CONVULSIONS 08/11/2015 GELLENDER DO, AMANDEEP Pineda Ot E78.5 HYPERLIPIDEMIA, UNSPECIFIED 08/11/2015 GELLENDER DOAMANDEEP Ot J44.9 CHRONIC OBSTRUCTIVE PULMONARY DISEASE, U 08/11/2015 GELLENDER DOAMANDEEP Ot M79.672 PAIN IN LEFT FOOT 08/11/2015 CHADWICK LASSITER AMANDEEP Miriam Ot R56.9 UNSPECIFIED CONVULSIONS 08/11/2015 CHADWICK LASSITER AMANDEEP Pineda Ot Z87.81 PERSONAL HISTORY OF (HEALED) TRAUMATIC F 08/11/2015 CHADWICK LASSITERAMANDEEP Ot E78.5 HYPERLIPIDEMIA, UNSPECIFIED 08/15/2015 CHADWICK LASSITERAMANDEEP Ot E87.1 HYPO-OSMOLALITY AND HYPONATREMIA 08/15/2015 CHADWICK LASSITERAMANDEEP Ot F17.210 NICOTINE DEPENDENCE, CIGARETTES, UNCOMPL 08/15/2015 CHADWICK LASSITER AMANDEEP Miriam Ot G40.909 EPILEPSY, UNSP, NOT INTRACTABLE, WITHOUT 08/15/2015 CHADWICK LASSITERAMANDEEP Ot G47.30 SLEEP APNEA, UNSPECIFIED 08/15/2015 CHADWICK LASSITER AMANDEEP Miriam Ot J18.9 PNEUMONIA, UNSPECIFIED ORGANISM 08/15/2015 CHADWICK LASSITER AMANDEEP Miriam Ot J44.1 CHRONIC OBSTRUCTIVE PULMONARY DISEASE W [...] CHÁVEZ APRN Ot Y92.[address] IN UNSP NON-INSTITUT (PRIVATE 10/24/2015 NOREEN CHÁVEZ APRN Ot Y99 .8 OTHER EXTERNAL CAUSE STATUS 10/24/2015 NOREEN CHÁVEZ APRN Ot Z23 ENCOUNTER FOR IMMUNIZATION 10/24/2015 NOREEN CHÁVEZ APRN Ot Z79.899 OTHER [facility] (CURRENT) DRUG THERAPY 10/25/2015 NOREEN CHÁVEZ APRN Ot F17.210 NICOTINE DEPENDENCE, CIGARETTES, UNCOMPL 10/25/2015 CHÁVEZ, PETER J [employer] PRESS TENDER Ot G40.909 EPILEPSY, UNSP, NOT INTRACTABLE, WITHOUT 10/25/2015 NOREEN CHÁVEZ PYROTECHN[employer] PRESS TENDER Ot M47.892 OTHER SPONDYLOSIS, CERVICAL REGION 10/25/2015 NOREEN CHÁVEZ PYROTECHNICS PRESS TENDER Ot R42 DIZZINESS AND GIDDINESS 10/25/2015 NOREEN CHÁVEZ PYROTECHNICS PRESS TENDER Ot S01.312A LACERATION WITHOUT FOREIGN BODY OF LEFT 10/25/2015 NOREEN CHÁVEZ PYROTECHNICS PRESS TENDER Ot W01.0XXA FALL SAME LEV FROM SLIP/TRIP W/O STRIKE 10/25/2015 NOREEN CHÁVEZ PYROTECHNICS PRESS TENDER Ot Y92.[address] IN UNSP NON-INSTITUT (PRIVATE 10/25/2015 NOREEN CHÁVEZ PYROTECHNICS PRESS TENDER Ot Y99 .8 OTHER EXTERNAL CAUSE STATUS 10/25/2015 NOREEN CHÁVEZ PYROTECHNICS PRESS TENDER Ot Z23 ENCOUNTER FOR IMMUNIZATION 10/25/2015 NOREEN CHÁVEZ APRN Ot Z79.899 OTHER [facility] (CURRENT) DRUG THERAPY 11/01/2015 Ot 272.4 HYPE RLIPIDEMIA NEC/NOS 11/01/2015 Ot 496 [facility] AI RWAY OBSTRUCT NEC 11/01/2015 Ot 780.39 OTH ER CONVULSIONS 11/01/2015 Ot 780.39 OT ER CONVULSIONS 11/01/2015 Ot 272.4 HYPE RLIPIDEMIA NEC/NOS 11/01/2015 Ot 780.39 OTH ER CONVULSIONS 11/01/2015 Ot 496 [facility] AI RWAY OBSTRUCT NEC 11/01/2015 Ot 786.2 COUGH 11/01/2015 Ot 496 [facility] AI RWAY OBSTRUCT NEC 11/01/2015 Ot 786.2 COUGH 11/01/2015 Ot 272.4 HYPE RLIPIDEMIA NEC/NOS 11/01/2015 Ot 780.39 OTH ER CONVULSIONS 11/01/2015 Ot 780.39 OTH ER CONVULSIONS 11/01/2015 Ot 272.4 HYPE RLIPIDEMIA NEC/NOS 11/01/2015 Ot 496 [facility] AI RWAY OBSTRUCT NEC 11/01/2015 Ot 780.39 OTH ER CONVULSIONS 11/20/2015 MARY RIOS, STEFAN Zuniga Ot F17.210 NICOTINE DEPENDENCE, CIGARETTES, UNCOMPL 11/20/2015 STEFAN HERNANDEZ MD Ot G40.909 EPILEPSY, UNSP, NOT INTRACTABLE, WITHOUT 11/20/2015 MARY RIOS, STEFAN Zuniga Ot R27.0 ATAXIA, UNSPECIFIED 11/20/2015 MARY RIOS, STEFAN Zuniga Ot R41.82 ALTERED MENTAL STATUS, UNSPECIFIED 11/20/2015 MARY RIOS, STEFAN Zuniga Ot Z53.29 PROC/TRTMT NOT CRD OUT BEC PT DECISION F 11/26/2015 MARY RIOS, STEFAN Zuniga Ot F17.210 NICOTINE DEPENDENCE, CIGARETTES, UNCOMPL 11/26/2015 MARY RIOS, STEFAN Zuniga Ot G40.909 EPILEPSY, UNSP, NOT INTRACTABLE, WITHOUT 11/26/2015 MARY RIOS, STEFAN Zuniga Ot R27.0 ATAXIA, UNSPECIFIED 11/26/2015 STEFAN HERNANDEZ MD Ot R41.82 ALTERED MENTAL STATUS, UNSPECIFIED 11/26/2015 MARY RIOS, STEFAN Zuniga Ot Z53.29 PROC/TRTMT NOT CRD OUT BEC PT DECISION F 12/14/2015 JOSEDER DOAMANDEEP Ot R56.9 UNSPECIFIED CONVULSIONS 02/19/2016 GELLENDER DOAMANDEEP Ot R56.9 UNSPECIFIED CONVULSIONS 02/21/2016 Ot 272.4 HYPE RLIPIDEMIA NEC/NOS 02/21/2016 Ot 780.39 OTH ER CONVULSIONS 02/21/2016 Ot 496 CHR AI RWAY OBSTRUCT NEC 02/21/2016 Ot 786.2 COUGH 02/21/2016 Ot 780.39 OTH ER CONVULSIONS 02/21/2016 Ot 780.39 OTH ER CONVULSIONS 02/21/2016 GELLENDER DOAMANDEEP Ot 490 BRONCHITIS NOS 02/21/2016 GELLENDER DOAMANDEEP Ot 496 CHR AIRWAY OBSTRUCT NEC 02/21/2016 GELLENDER DOAMANDEEP Ot 783.21 LOSS OF WEIGHT 02/21/2016 GELLENDER AMANDEEP LASSITER Ot 496 CHR AIRWAY OBSTRUCT NEC 02/21/2016 GELLENDER DOAMANDEEP Ot 786.2 COUGH 02/21/2016 GELLENDER DO, AMANDEEP Pineda Ot 783.21 LOSS OF WEIGHT 02/21/2016 GELLENDER DOAMANDEEP Ot 789.00 ABDOMINAL PAIN, UNSPECIFIED SITE 02/21/2016 GELLENDER DOAMANDEEP Ot 783.21 LOSS OF WEIGHT 02/21/2016 CHADWICK LASSITER, AMANDEEP Pineda Ot 789.00 ABDOMINAL PAIN, UNSPECIFIED SITE 02/21/2016 CHADWICK LASSITER, AMANDEEP Pineda Ot 272.4 HYPERLIPIDEMIA NEC/NOS 02/21/2016 CHADWICK LASSITER, AMANDEEP Pineda Ot 496 CHR AIRWAY OBSTRUCT NEC 02/21/2016 JOSEDER , AMANDEEP Pineda Ot 780.39 OTHER CONVULSIONS 02/21/2016 CHADWICK LASSITER, AMANDEEP Pineda Ot 729.81 SWELLING OF LIMB 02/21/2016 CHADWICK LASSITER, AMANDEEP Pineda Ot 780.79 OTH MALAISE FATIGUE 02/21/2016 GABRIELLE RIOS, YELITZA Marie Ot 780.3 9 OTHER CONVULSIONS 02/21/2016 CHADWICK LASSITER, AMANDEEP Pineda Ot 825.25 FX METATARSAL-CLOSED 02/21/2016 CHADWICK LASSITER, AMANDEEP Pineda Ot E928.9 ACCIDENT NOS 02/21/2016 CHADWICK LASSITER, AMANDEEP Pineda Ot 780.39 OTHER CONVULSIONS 02/21/2016 CHADWICK LASSITER, AMANDEEP Pineda Ot 721.0 CERVICAL SPONDYLOSIS 02/21/2016 CHADWICK LASSITER, AMANDEEP Pineda Ot 496 CHR AIRWAY OBSTRUCT NEC 02/21/2016 JOSEDER , AMANDEEP Pineda Ot 780.39 OTHER CONVULSIONS 02/21/2016 CHADWICK LASSITER, AMANDEEP Pineda Ot E78.5 HYPERLIPIDEMIA, UNSPECIFIED 02/21/2016 CHADWICK LASSITER, AMANDEEP Pineda Ot J44.9 CHRONIC OBSTRUCTIVE PULMONARY DISEASE, U 02/21/2016 CHADWICK LASSITER, AMANDEEP Pineda Ot M79.672 PAIN IN LEFT FOOT 02/21/2016 CHADWICK LASSITER, AMANDEEP Pineda Ot R56.9 UNSPECIFIED CONVULSIONS 02/21/2016 CHADWICK LASSITER, AMANDEEP Pineda Ot Z87.81 PERSONAL HISTORY OF (HEALED) TRAUMATIC F 02/21/2016 CHADWICK LASSITER, AMANDEEP Pineda Ot E78.5 HYPERLIPIDEMIA, UNSPECIFIED 02/21/2016 JOSEDER DOAMANDEEP Ot R56.9 UNSPECIFIED CONVULSIONS 02/21/2016 CHADWICK LASSITER, AMANDEEP Pineda Ot F17.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, UNSPECIFIED, UNCOMP 02/21/2016 JOSEDER AMANDEEP Ot J44.9 CHRONIC OBSTRUCTIVE PULMONARY DISEASE, U 02/21/2016 CHADWICK LASSITER, AMANDEEP Pineda Ot R63.4 ABNORMAL WEIGHT LOSS 02/21/2016 Ot 272.4 HYPE RLIPIDEMIA NEC/NOS 02/21/2016 Ot 780.39 OTH ER CONVULSIONS 02/21/2016 Ot 496 CHR AI RWAY OBSTRUCT NEC 02/21/2016 Ot 786.2 COUGH 02/21/2016 Ot 780.39 OTH ER CONVULSIONS 02/21/2016 Ot 780.39 OTH ER CONVULSIONS 02/21/2016 GELLENDER DO AMANDEEP Pineda Ot 490 BRONCHITIS NOS 02/21/2016 [...] 789.00 ABDOMINAL PAIN, UNSPECIFIED SITE 02/21/2016 GELLENDER DOAMANDEEP Ot 272.4 HYPERLIPIDEMIA NEC/NOS 02/21/2016 GELLENDER DOAMANDEEP Ot 496 CHR AIRWAY OBSTRUCT NEC 02/21/2016 GELLENDER DO, AMANDEEP Pineda Ot 780.39 OTHER CONVULSIONS 02/21/2016 GELLENDER DO, AMANDEEP Pineda Ot 729.81 SWELLING OF LIMB 02/21/2016 GELLENDER DOAMANDEEP Ot 780.79 OTH MALAISE FATIGUE 02/21/2016 GABRIELLE RIOS, YELITZA Marie Ot 780.3 9 OTHER CONVULSIONS 02/21/2016 GELLENDER DO, AMANDEEP Pineda Ot 825.25 FX METATARSAL-CLOSED 02/21/2016 GELLENDER DOAMANDEEP Ot E928.9 ACCIDENT NOS 02/21/2016 GELLENDER DOAMANDEEP Ot 780.39 OTHER CONVULSIONS 02/21/2016 GELLENDER DO, AMANDEEP Pineda Ot 721.0 CERVICAL SPONDYLOSIS 02/21/2016 GELLENDER DO, AMANDEEP Pineda Ot 496 CHR AIRWAY OBSTRUCT NEC 02/21/2016 GELLENDER DOAMANDEEP Ot 780.39 OTHER CONVULSIONS 02/21/2016 GELLENDER DO, AMANDEEP Pineda Ot E78.5 HYPERLIPIDEMIA, UNSPECIFIED 02/21/2016 CHADWICK LASSITER, AMANDEEP Pineda Ot J44.9 CHRONIC OBSTRUCTIVE PULMONARY DISEASE, U 02/21/2016 CHADWICK LASSITER, AMANDEEP Miriam Ot M79.672 PAIN IN LEFT FOOT 02/21/2016 CHADWICK LASSITERAMANDEEP Ot R56.9 UNSPECIFIED CONVULSIONS 02/21/2016 CHADWICK LASSITERAMANDEEP Ot Z87.81 PERSONAL HISTORY OF (HEALED) TRAUMATIC F 02/21/2016 CHADWICK LASSITER AMANDEEP Pineda Ot E78.5 HYPERLIPIDEMIA, UNSPECIFIED 02/21/2016 CHADWICK LASSITERAMANDEEP Ot F17.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, UNSPECIFIED, UNCOMP 02/21/2016 CHADWICK LASSITER, AMANDEEP Pineda Ot J44.9 CHRONIC OBSTRUCTIVE PULMONARY DISEASE, U 02/21/2016 CHADWICK LASSITERAMANDEEP Ot R63.4 ABNORMAL WEIGHT LOSS 02/22/2016 MARY RIOS, STEFAN T Ot F17.210 NICOTINE DEPENDENCE, CIGARETTES, UNCOMPL 02/22/2016 MARY RIOS, STEFAN T Ot G40.909 EPILEPSY, UNSP, NOT INTRACTABLE, WITHOUT 02/22/2016 MARY RIOS, STEFAN T Ot R27.0 ATAXIA, UNSPECIFIED 02/22/2016 MARY RIOS, STEFAN T Ot R41.82 ALTERED MENTAL STATUS, UNSPECIFIED 02/22/2016 MARY RIOS, STEFAN T Ot Z53.29 PROC/TRTMT NOT CRD OUT BEC PT DECISION F 02/22/2016 CHADWICK LASSITER AMANDEEP Miriam Ot F17.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, UNSPECIFIED, UNCOMP 02/22/2016 CHADWICK LASSITERAMANDEEP Ot J44.9 CHRONIC OBSTRUCTIVE PULMONARY DISEASE, U 02/22/2016 CHADWICK LASSITERAMANDEEP Ot R63.4 ABNORMAL WEIGHT LOSS 02/27/2016 CHADWICK LASSITERAMANDEEP Ot J44.9 CHRONIC OBSTRUCTIVE PULMONARY DISEASE, U 02/27/2016 CHADWICK LASSITERAMANDEEP Ot R63.4 ABNORMAL WEIGHT LOSS 02/28/2016 CHADWICK LASSITERAMANDEEP Ot R56.9 UNSPECIFIED CONVULSIONS 02/28/2016 CHADWICK LASSITERAMANDEEP Ot F17.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, UNSPECIFIED, UNCOMP 02/28/2016 CHADWICK LASSITERAMANDEEP Ot J44.9 CHRONIC OBSTRUCTIVE PULMONARY DISEASE, U 02/28/2016 GELLENDER DO, AMANDEEP Miriam Ot R63.4 ABNORMAL WEIGHT LOSS 02/28/2016 Ot 272.4 HYPE RLIPIDEMIA NEC/NOS 02/28/2016 Ot 780.39 OTH ER CONVULSIONS 02/28/2016 Ot 496 CHR AI RWAY OBSTRUCT NEC 02/28/2016 Ot 786.2 COUGH 02/28/2016 Ot 780.39 OTH ER CONVULSIONS 02/28/2016 Ot 780.39 OTH ER CONVULSIONS 02/28/2016 GELLENDER DO, AMANDEEP Miriam Ot 490 BRONCHITIS NOS 02/28/2016 GELLENDER DO, AMANDEEP Pineda Ot 496 CHR AIRWAY OBSTRUCT NEC 02/28/2016 GELLENDER DO, AMANDEEP Pineda Ot 783.21 LOSS OF WEIGHT 02/28/2016 GELLENDER DO, AMANDEEP Pineda Ot 496 CHR AIRWAY OBSTRUCT NEC 02/28/2016 GELLENDER DO, AMANDEEP Pineda Ot 786.2 COUGH 02/28/2016 GELLENDER AMANDEEP Ot 783.21 LOSS OF WEIGHT 02/28/2016 GELLENDER DOAMANDEEP Ot 789.00 ABDOMINAL PAIN, UNSPECIFIED SITE 02/28/2016 GELLENDER DOAMANDEEP Ot 783.21 LOSS OF WEIGHT 02/28/2016 GELLENDER DO, AMANDEEP Pineda Ot 789.00 ABDOMINAL PAIN, UNSPECIFIED SITE 02/28/2016 GELLENDER DOAMANDEEP Ot 272.4 HYPERLIPIDEMIA NEC/NOS 02/28/2016 GELLENDER DO, AMANDEEP Pineda Ot 496 CHR AIRWAY OBSTRUCT NEC 02/28/2016 GELLENDER AMANDEEP Ot 780.39 OTHER CONVULSIONS 02/28/2016 GELLENDER DOAMANDEEP Ot 729.81 SWELLING OF LIMB 02/28/2016 GELLENDER DOAMANDEEP Ot 780.79 OTH MALAISE FATIGUE 02/28/2016 GABRIELLE RIOS, YELITZA Marie Ot 780.3 9 OTHER CONVULSIONS 02/28/2016 GELLENDER DOAMANDEEP Ot 825.25 FX METATARSAL-CLOSED 02/28/2016 GELLENDER AMANDEEP Ot E928.9 ACCIDENT NOS 02/28/2016 GELLENDER DOAMANDEEP Ot 780.39 OTHER CONVULSIONS 02/28/2016 GELLENDER DOAMANDEEP Ot 721.0 CERVICAL SPONDYLOSIS 02/28/2016 GELLENDER DOAMANDEEP Ot 496 CHR AIRWAY OBSTRUCT NEC 02/28/2016 GELLENDER DO, AMANDEEP Pineda Ot 780.39 OTHER CONVULSIONS 02/28/2016 GELLENDER DO, AMANDEEP Pineda Ot E78.5 HYPERLIPIDEMIA, UNSPECIFIED 02/28/2016 GELLENDER DO, AMANDEEP Pineda Ot J44.9 CHRONIC OBSTRUCTIVE PULMONARY DISEASE, U 02/28/2016 GELLENDER DO, AMANDEEP Pineda Ot M79.672 PAIN IN LEFT FOOT 02/28/2016 GELLENDER DO, AMANDEEP Pineda Ot R56.9 UNSPECIFIED CONVULSIONS 02/28/2016 GELLENDER DO, AMANDEEP Pineda Ot Z87.81 PERSONAL HISTORY OF (HEALED) TRAUMATIC F 02/28/2016 GELLENDER DO, AMANDEEP Pineda Ot E78.5 HYPERLIPIDEMIA, UNSPECIFIED 02/28/2016 GELLENDER DO, AMANDEEP Pineda Ot F17.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, UNSPECIFIED, UNCOMP 02/28/2016 GELLENDER DO, AMANDEEP Pineda Ot J44.9 CHRONIC OBSTRUCTIVE PULMONARY DISEASE, U 02/28/2016 GELLENDER DO, AMANDEEP Pineda Ot R63.4 ABNORMAL WEIGHT LOSS 02/28/2016 GELLENDER DO, AMANDEEP Pineda Ot J44.9 CHRONIC OBSTRUCTIVE PULMONARY DISEASE, U 02/28/2016 GELLENDER DO, AMANDEEP Pineda Ot R63.4 ABNORMAL WEIGHT LOSS 02/29/2016 GELLENDER DO, AMANDEEP Pineda Ot R63.4 ABNORMAL WEIGHT LOSS 03/05/2016 GELLENDER DO, AMANDEEP Pineda Ot J44.9 CHRONIC OBSTRUCTIVE PULMONARY DISEASE, U 03/05/2016 GELLENDER DO, AMANDEEP Pineda Ot R63.4 ABNORMAL WEIGHT LOSS 03/05/2016 GELLENDER DO, AMANDEEP Pineda Ot F17.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, UNSPECIFIED, UNCOMP 03/05/2016 GELLENDER DO, AMANDEEP Pineda Ot J44.9 CHRONIC OBSTRUCTIVE PULMONARY DISEASE, U 03/05/2016 GELLENDER DO, AMANDEEP Pineda Ot R63.4 ABNORMAL WEIGHT LOSS 03/05/2016 GELLENDER DO, AMANDEEP Pineda Ot R56.9 UNSPECIFIED CONVULSIONS 03/06/2016 GELLENDER DO, AMANDEEP Pineda Ot R56.9 UNSPECIFIED CONVULSIONS 03/15/2016 GELLENDER DO, AMANDEEP Pineda Ot R63.4 ABNORMAL WEIGHT LOSS 04/11/2016 GELLENDER DO, AMANDEEP Pineda Ot R56.9 UNSPECIFIED CONVULSIONS 04/11/2016 GELLENDER DO, AMANDEEP Pindea Ot F17.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, UNSPECIFIED, UNCOMP 04/11/2016 [...] DEPENDENCE, UNSPECIFIED, UNCOMP 04/23/2016 GELLENDER DO, AMANDEEP Miriam Ot J44.9 CHRONIC OBSTRUCTIVE PULMONARY DISEASE, U 04/23/2016 GELLENDER DO, AMANDEEP Pineda Ot R63.4 ABNORMAL WEIGHT LOSS 04/23/2016 GELLENDER DO, AMANDEEP Pineda Ot J44.9 CHRONIC OBSTRUCTIVE PULMONARY DISEASE, U 04/23/2016 GELLENDER DO, AMANDEEP Pineda Ot R63.4 ABNORMAL WEIGHT LOSS 04/23/2016 GELLENDER DO, AMANDEEP A Ot R63.4 ABNORMAL WEIGHT LOSS 08/26/2016 GELLENDER DO, AMANDEEP A Ot G40.909 EPILEPSY, UNSP, NOT INTRACTABLE, WITHOUT 08/26/2016 GELLENDER DO, AMANDEEP Miriam Ot J44.9 CHRONIC OBSTRUCTIVE PULMONARY DISEASE, U 09/05/2016 GELLENDER DO, AMANDEEP A Ot G40.909 EPILEPSY, UNSP, NOT INTRACTABLE, WITHOUT 09/05/2016 GELLENDER DO, AMANDEEP Miriam Ot J44.9 CHRONIC OBSTRUCTIVE PULMONARY DISEASE, U 09/11/2016 GELLENDER DO, AMANDEEP A Ot E87.1 HYPO-OSMOLALITY AND HYPONATREMIA 09/11/2016 GELLENDER DO, AMANDEEP A Ot G40.909 EPILEPSY, UNSP, NOT INTRACTABLE, WITHOUT 10/17/2016 GELLENDER DO, AMANDEEP A Ot E87.1 HYPO-OSMOLALITY AND HYPONATREMIA 10/17/2016 GELLENDER DO, AMANDEEP A Ot G40.909 EPILEPSY, UNSP, NOT INTRACTABLE, WITHOUT 12/19/2016 GELLENDER DO, AMANDEEP A Ot E87.1 HYPO-OSMOLALITY AND HYPONATREMIA 12/19/2016 GELLENDER DO, AMANDEEP A Ot G40.909 EPILEPSY, UNSP, NOT INTRACTABLE, WITHOUT 12/20/2016 GELLENDER DO, AMANDEEP Pineda Ot G40.909 EPILEPSY, UNSP, NOT INTRACTABLE, WITHOUT 12/20/2016 GELLENDER , AMANDEEP Pineda Ot J44.9 CHRONIC OBSTRUCTIVE PULMONARY DISEASE, U 12/25/2016 GELLENDER DO, AMANDEEP Pineda Ot J44.9 CHRONIC OBSTRUCTIVE PULMONARY DISEASE, U 12/31/2016 GELLENDER DO, AMANDEEP Pineda Ot J44.9 CHRONIC OBSTRUCTIVE PULMONARY DISEASE, U 01/23/2017 GELLENDER DO, AMANDEEP Pineda Ot G40.909 EPILEPSY, UNSP, NOT INTRACTABLE, WITHOUT 01/23/2017 GELLENDER DO, AMANDEEP Pineda Ot J34.89 OTHER SPECIFIED DISORDERS OF NOSE AND NA 01/23/2017 AMANDEEP GENAO DO Ot S99.912A UNSPECIFIED INJURY OF LEFT ANKLE, INITIA 01/23/2017 GELLENDER DO, AMANDEEP Pineda Ot W19.XXXA UNSPECIFIED FALL, INITIAL ENCOUNTER 01/23/2017 AMANDEEP GENAO DO Ot Y99.8 OTHER EXTERNAL CAUSE STATUS 01/28/2017 [place] LASSITER, AMANDEEP Pineda Ot G40.909 EPILEPSY, UNSP, NOT INTRACTABLE, WITHOUT 01/28/2017 GELLENDER DO, AMANDEEP Pineda Ot J34.89 OTHER SPECIFIED DISORDERS OF NOSE AND NA 01/28/2017 BROOKELENDER , AMANDEEP Pineda Ot S99.912A UNSPECIFIED INJURY OF LEFT ANKLE, INITIA 01/28/2017 GELLENDER DO, AMANDEEP Pineda Ot W19.XXXA UNSPECIFIED FALL, INITIAL ENCOUNTER 01/28/2017 BROOKEAMANDEEP SAUCEDO DO Ot Y99.8 OTHER EXTERNAL CAUSE STATUS 02/04/2017 Ot 780.39 OT ER CONVULSIONS 02/04/2017 Ot 780.39 OT ER CONVULSIONS 02/04/2017 GELLENDER AMANDEEP LASSITER Ot 490 BRONCHITIS NOS 02/04/2017 GELLENDER DOAMANDEEP Ot 496 CHR AIRWAY OBSTRUCT NEC 02/04/2017 GELLENDER AMANDEEP LASSITER Ot 783.21 LOSS OF WEIGHT 02/04/2017 BROOKELENDER DOAMANDEEP Ot 496 CHR AIRWAY OBSTRUCT NEC 02/04/2017 GELLENDER AMANDEEP LASSITER Ot 786.2 COUGH 02/04/2017 GELLENDER DOAMANDEEP Ot 783.21 LOSS OF WEIGHT 02/04/2017 GELLENDER DOAMANDEEP Ot 789.00 ABDOMINAL PAIN, UNSPECIFIED SITE 02/04/2017 [...] FATIGUE 02/04/2017 GABRIELLE RIOS, YELITZA Marie Ot 780.3 9 OTHER CONVULSIONS 02/04/2017 GELLENDER DO, AMANDEEP Pineda [...] NOT INTRACTABLE, WITHOUT 02/04/2017 GELLENDER DO, AMANDEEP Miriam Ot J34.89 OTHER SPECIFIED DISORDERS OF NOSE AND NA 02/04/2017 GELLENDER DO, AMANDEEP Pineda Ot S99.912A UNSPECIFIED INJURY OF LEFT ANKLE, INITIA 02/04/2017 GELLENDER DO, AMANDEEP Pineda Ot W19.XXXA UNSPECIFIED FALL, INITIAL ENCOUNTER 02/04/2017 GELLENDER DO, AMANDEEP Miriam Ot Y99.8 OTHER EXTERNAL CAUSE STATUS 02/10/2017 GELLENDER DO, AMANDEEP Miriam Ot G40.909 EPILEPSY, UNSP, NOT INTRACTABLE, WITHOUT 02/10/2017 GELLENDER DO, AMANDEEP Miriam Ot R06.02 SHORTNESS OF BREATH 02/10/2017 GELLENDER DO, AMANDEEP Miriam Ot R63.4 ABNORMAL WEIGHT LOSS 02/10/2017 GELLENDER DO, AMANDEEP Miriam Ot G40.909 EPILEPSY, UNSP, NOT INTRACTABLE, WITHOUT 02/10/2017 GELLENDER DO, AMANDEEP Miriam Ot R06.02 SHORTNESS OF BREATH 02/10/2017 GELLENDER DO, AMANDEEP Miriam Ot R63.4 ABNORMAL WEIGHT LOSS 02/10/2017 GELLENDER DO, AMANDEEP Miriam Ot R56.9 UNSPECIFIED CONVULSIONS 02/10/2017 GELLENDER DO, AMANDEEP Miriam Ot F17.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, UNSPECIFIED, UNCOMP 02/10/2017 GELLENDER DO, AMANDEEP Pineda Ot J44.9 CHRONIC OBSTRUCTIVE PULMONARY DISEASE, U 02/10/2017 GELLENDER DO, AMANDEEP Miriam Ot R63.4 ABNORMAL WEIGHT LOSS 02/10/2017 GELLENDER DO, AMANDEEP Pineda Ot J44.9 CHRONIC OBSTRUCTIVE PULMONARY DISEASE, U 02/10/2017 GELLENDER DO, AMANDEEP Pineda Ot R63.4 ABNORMAL WEIGHT LOSS 02/10/2017 GELLENDER DO, AMANDEEP Pineda Ot R63.4 ABNORMAL WEIGHT LOSS 02/10/2017 GELLENDER DO, AMANDEEP Miriam Ot G40.909 EPILEPSY, UNSP, NOT INTRACTABLE, WITHOUT 02/10/2017 GELLENDER DO, AMANDEEP Pineda Ot J44.9 CHRONIC OBSTRUCTIVE PULMONARY DISEASE, U 02/10/2017 GELLENDER DO, AMANDEEP Pineda Ot E87.1 HYPO-OSMOLALITY AND HYPONATREMIA 02/10/2017 GELLENDER DO, AMANDEEP Pineda Ot G40.909 EPILEPSY, UNSP, NOT INTRACTABLE, WITHOUT 02/10/2017 GELLENDER AMANDEEP LASSITER Ot J44.9 CHRONIC OBSTRUCTIVE PULMONARY DISEASE, U 02/10/2017 [place] , AMANDEEP Pineda Ot G40.909 EPILEPSY, UNSP, NOT INTRACTABLE, WITHOUT 02/10/2017 GELLENDER DOAMANDEEP Ot J34.89 OTHER SPECIFIED DISORDERS OF NOSE AND NA 02/10/2017 BROOKESHERYL LASSITER, AMANDEEP Pineda Ot S99.912A UNSPECIFIED INJURY OF LEFT ANKLE, INITIA 02/10/2017 GELLENDER DO, AMANDEEP Pineda Ot W19.XXXA UNSPECIFIED FALL, INITIAL ENCOUNTER 02/10/2017 CHADWICK LASSITER, AMANDEEP Pineda Ot Y99.8 OTHER EXTERNAL CAUSE STATUS 02/10/2017 CH[place]WICK LASSITER, AMANDEEP Pineda Ot G40.909 EPILEPSY, UNSP, NOT INTRACTABLE, WITHOUT 02/10/2017 GELLENDER DOAMANDEEP Ot R06.02 SHORTNESS OF BREATH 02/10/2017 AMANDEEP GENAO DO Ot R63.4 ABNORMAL WEIGHT LOSS 02/24/2017 CH[place]WICK LASSITER, AMANDEEP Pineda Ot G40.909 EPILEPSY, UNSP, NOT INTRACTABLE, WITHOUT 02/24/2017 GELLENDER DOAMANDEEP Ot R06.02 SHORTNESS OF BREATH 02/24/2017 CHADWICK LASSITER, AMANDEEP Pineda Ot R63.4 ABNORMAL WEIGHT LOSS 03/03/2017 CHADWICK LASSITER, AMANDEEP Pineda Ot F17.210 NICOTINE DEPENDENCE, CIGARETTES, UNCOMPL 03/03/2017 AMANDEEP GENAO DO Ot G40.909 EPILEPSY, UNSP, NOT INTRACTABLE, WITHOUT 03/03/2017 AMANDEEP GENAO DO Ot G47.30 SLEEP APNEA, UNSPECIFIED 03/03/2017 GELLENDER AMANDEEP LASSITER Ot J18.9 PNEUMONIA, UNSPECIFIED ORGANISM 03/03/2017 AMANDEEP GENAO DO Ot J44.1 CHRONIC OBSTRUCTIVE PULMONARY DISEASE W 03/03/2017 AMANDEEP GENAO DO Ot J96.22 ACUTE AND CHRONIC RESPIRATORY FAILURE WI 03/03/2017 AMANDEEP GENAO DO Ot 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, STAGE 2 03/03/2017 AMANDEEP GENAO DO Ot L89.322 PRESSURE ULCER OF LEFT BUTTOCK, STAGE 2 03/05/2017 SANTA RIOSIRAIDA Ot E78.00 PURE HYPERCHOLESTEROLEMIA, UNSPECIFIED 03/05/2017 IRAIDA PRATT MD Ot G40.909 EPILEPSY, UNSP, NOT INTRACTABLE, WITHOUT 03/05/2017 IRAIDA PRATT MD Ot G47.30 SLEEP APNEA, UNSPECIFIED 03/05/2017 IRAIDA PRATT MD Ot J44 .9 CHRONIC OBSTRUCTIVE PULMONARY DISEASE, U 03/05/2017 IRAIDA PRATT MD Ot S00.31XA ABRASION OF NOSE, INITIAL ENCOUNTER 03/05/2017 IRAIDA PRATT MD Ot S60.511A ABRASION OF RIGHT HAND, INITIAL ENCOUNTE 03/05/2017 IRAIDA PRATT MD Ot S60.512A ABRASION OF LEFT HAND, INITIAL ENCOUNTER 03/05/2017 IRAIDA PRATT MD Ot W18.30XA FALL ON SAME LEVEL, UNSPECIFIED, INITIAL 03/05/2017 IRAIDA PRATT MD Ot Y92.[address] OF OCCURRENCE O 03/05/2017 IRAIDA PRATT MD Ot Y93.01 ACTIVITY, WALKING, MARCHING AND HIKING 03/05/2017 IRAIDA PRATT MD Ot Z87.01 PERSONAL HISTORY OF PNEUMONIA (RECURRENT 03/11/2017 AMANDEEP GENAO DO Ot A41.9 SEPSIS, UNSPECIFIED ORGANISM 03/11/2017 AMANDEEP GENAO DO Ot E83.42 HYPOMAGNESEMIA 03/11/2017 AMANDEEP GENAO DO Ot F17.210 NICOTINE DEPENDENCE, CIGARETTES, UNCOMPL 03/11/2017 AMANDEEP GENAO DO Ot G40.909 EPILEPSY, UNSP, NOT INTRACTABLE, WITHOUT 03/11/2017 AMANDEEP GENAO DO Ot I50.9 HEART FAILURE, UNSPECIFIED 03/11/2017 AMANDEEP GENAO DO Ot J18.9 PNEUMONIA, UNSPECIFIED ORGANISM 03/11/2017 AMANDEEP GENAO DO Ot J44.1 CHRONIC OBSTRUCTIVE PULMONARY DISEASE W 03/11/2017 AMANDEEP GENAO DO Ot J96.20 ACUTE AND CHR RESP FAILURE, UNSP W HYPOX 03/11/2017 AMANDEEP GENAO DO Ot N39.0 URINARY TRACT INFECTION, SITE NOT SPECIF 03/11/2017 AMANDEEP GENAO DO Ot Z99.81 DEPENDENCE ON SUPPLEMENTAL OXYGEN 03/12/2017 AMANDEEP GENAO DO A Ot A41.9 SEPSIS, UNSPECIFIED ORGANISM 03/12/2017 GELLENDER [...] NOT INTRACTABLE, WITHOUT 03/13/2017 GELLENDER DO, AMANDEEP Pinead Ot I50.9 HEART FAILURE, UNSPECIFIED 03/13/2017 GELLENDER [...] Ot E83.42 HYPOMAGNESEMIA 03/14/2017 GELLENDER DO, AMANDEEP Miriam Ot F17.210 NICOTINE DEPENDENCE, CIGARETTES, UNCOMPL 03/14/2017 [...] NOT INTRACTABLE, WITHOUT 03/14/2017 GELLENDER DO, AMANDEEP iPneda Ot I50.9 HEART FAILURE, UNSPECIFIED 03/14/2017 GELLENDER [...] Pineda Ot Z99.81 DEPENDENCE ON SUPPLEMENTAL OXYGEN 04/01/2017 GELLENDER DO, AMANDEEP Pineda Ot D64.9 ANEMIA, UNSPECIFIED 04/01/2017 GELLENDER DO, AMANDEEP Pineda Ot E78.00 PURE HYPERCHOLESTEROLEMIA, UNSPECIFIED 04/01/2017 GELLENDER DO, AMANDEEP Pineda Ot E78.5 HYPERLIPIDEMIA, UNSPECIFIED 04/01/2017 GELLENDER DO, AMANDEEP Pineda Ot G14 POSTPOLIO SYNDROME 04/01/2017 GELLENDER DO, AMANDEEP Pineda Ot G40.909 EPILEPSY, UNSP, NOT INTRACTABLE, WITHOUT 04/01/2017 GELLENDER DO, AMANDEEP Pineda Ot I10 ESSENTIAL (PRIMARY) HYPERTENSION 04/01/2017 GELLENDER DO, AMANDEEP Pineda Ot J44.1 CHRONIC OBSTRUCTIVE PULMONARY DISEASE W 04/01/2017 GELLENDER DO, AMANDEEP Pineda Ot Z87.01 PERSONAL HISTORY OF PNEUMONIA (RECURRENT 04/01/2017 GELLENDER DO, AMANDEEP Pineda Ot Z87.891 PERSONAL HISTORY OF NICOTINE DEPENDENCE 04/02/2017 GELLENDER DO, AMANDEEP Pineda Ot D64.9 ANEMIA, UNSPECIFIED 04/02/2017 GELLENDER DO, AMANDEEP Pineda Ot E78.00 PURE HYPERCHOLESTEROLEMIA, UNSPECIFIED 04/02/2017 GELLENDER DO, AMANDEEP Pineda Ot E78.5 HYPERLIPIDEMIA, UNSPECIFIED 04/02/2017 GELLENDER DO, AMANDEEP Pineda Ot G14 POSTPOLIO SYNDROME 04/02/2017 GELLENDER DO, AMANDEEP Pineda Ot G40.909 EPILEPSY, UNSP, NOT INTRACTABLE, WITHOUT 04/02/2017 GELLENDER DO, AMANDEEP Pineda Ot I10 ESSENTIAL (PRIMARY) HYPERTENSION 04/02/2017 GELLENDER DO, AMANDEEP Pineda Ot J44.1 CHRONIC OBSTRUCTIVE PULMONARY DISEASE W 04/02/2017 GELLENDER DO, AMANDEEP Pineda Ot Z87.01 PERSONAL HISTORY OF PNEUMONIA (RECURRENT 04/02/2017 GELLENDER DO, AMANDEEP Pineda Ot Z87.891 PERSONAL HISTORY OF NICOTINE DEPENDENCE 04/02/2017 GELLENDER DO, AMANDEEP Pineda Ot D64.9 ANEMIA, UNSPECIFIED 04/02/2017 GELLENDER DO, AMANDEEP Pineda Ot E78.00 PURE HYPERCHOLESTEROLEMIA, UNSPECIFIED 04/02/2017 GELLENDER DO, AMANDEEP Pineda Ot E78.5 HYPERLIPIDEMIA, UNSPECIFIED 04/02/2017 GELLENDER DO, AMANDEEP Pineda Ot G14 POSTPOLIO SYNDROME 04/02/2017 GELLENDER DO, AMANDEEP Pineda Ot G40.909 EPILEPSY, UNSP, NOT INTRACTABLE, WITHOUT 04/02/2017 GELLENDER DO, AMANDEEP Pineda Ot I10 ESSENTIAL (PRIMARY) HYPERTENSION 04/02/2017 GELLENDER DO, AMANDEEP Pineda Ot J44.1 CHRONIC OBSTRUCTIVE PULMONARY DISEASE W 04/02/2017 GELLENDER DO, AMANDEEP Pineda Ot Z87.01 PERSONAL HISTORY OF PNEUMONIA (RECURRENT 04/02/2017 GELLENDER DO, AMANDEEP Pineda Ot Z87.891 PERSONAL HISTORY OF NICOTINE DEPENDENCE 04/06/2017 GELLENDER DO, AMANDEEP Pineda Ot R56.9 UNSPECIFIED CONVULSIONS 04/06/2017 GELLENDER DO, AMANDEEP Pineda Ot F17.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, UNSPECIFIED, UNCOMP 04/06/2017 GELLENDER DO, AMANDEEP Pineda Ot J44.9 CHRONIC OBSTRUCTIVE PULMONARY DISEASE, U 04/06/2017 GELLENDER DO, AMANDEEP Pineda Ot R63.4 ABNORMAL WEIGHT LOSS 04/06/2017 GELLENDER DO, AMANDEEP Pineda Ot J44.9 CHRONIC OBSTRUCTIVE PULMONARY DISEASE, U 04/06/2017 GELLENDER DO, AMANDEEP Pineda Ot R63.4 ABNORMAL WEIGHT LOSS 04/06/2017 GELLENDER DO, AMANDEEP Pineda Ot R63.4 ABNORMAL WEIGHT LOSS 04/06/2017 GELLENDER DO, AMANDEEP Pineda Ot G40.909 EPILEPSY, UNSP, NOT INTRACTABLE, WITHOUT 04/06/2017 GELLENDER DO, AMANDEEP Pineda Ot J44.9 CHRONIC OBSTRUCTIVE PULMONARY DISEASE, U 04/06/2017 GELLENDER DO, AMANDEEP Pineda Ot E87.1 HYPO-OSMOLALITY AND HYPONATREMIA 04/06/2017 GELLENDER DO, AMANDEEP Pineda Ot G40.909 EPILEPSY, UNSP, NOT INTRACTABLE, WITHOUT 04/06/2017 GELLENDER DO, AMANDEEP Pineda Ot J44.9 CHRONIC OBSTRUCTIVE PULMONARY DISEASE, U 04/06/2017 GELLENDER DO, AMANDEEP Pineda Ot G40.909 EPILEPSY, UNSP, NOT INTRACTABLE, WITHOUT 04/06/2017 GELLENDER DO, AMANDEEP Pineda Ot J34.89 OTHER SPECIFIED DISORDERS OF NOSE AND NA 04/06/2017 GELLENDER DO, AMANDEEP Pineda Ot S99.912A UNSPECIFIED INJURY OF LEFT ANKLE, INITIA 04/06/2017 GELLENDER DO, AMANDEEP Pineda Ot W19.XXXA UNSPECIFIED FALL, INITIAL ENCOUNTER 04/06/2017 GELLENDER DO, AMANDEEP Pineda Ot Y99.8 OTHER EXTERNAL CAUSE STATUS 04/06/2017 GELLENDER DO, AMANDEEP Pineda Ot G40.909 EPILEPSY, UNSP, NOT INTRACTABLE, WITHOUT 04/06/2017 GELLENDER DO, AMANDEEP Pineda Ot R06.02 SHORTNESS OF BREATH 04/06/2017 GELLENDER DO, AMANDEEP Pineda Ot R63.4 ABNORMAL WEIGHT LOSS 04/08/2017 GELLENDER DO, AMANDEEP Pineda Ot E78.00 PURE HYPERCHOLESTEROLEMIA, UNSPECIFIED 04/08/2017 GELLENDER DO, AMANDEEP Pineda Ot G40.909 EPILEPSY, UNSP, NOT INTRACTABLE, WITHOUT 04/08/2017 GELLENDER DO, AMANDEEP Pineda Ot G62.9 POLYNEUROPATHY, UNSPECIFIED 04/08/2017 GELLENDER DO, AMANDEEP Pineda Ot I10 ESSENTIAL (PRIMARY) HYPERTENSION 04/08/2017 GELLENDER DO, AMANDEEP Pineda Ot J18.9 PNEUMONIA, UNSPECIFIED ORGANISM 04/08/2017 GELLENDER DO, AMANDEEP Pineda Ot J44.1 CHRONIC OBSTRUCTIVE PULMONARY DISEASE W 04/08/2017 GELLENDER DO, AMANDEEP Pineda Ot J96.00 ACUTE RESPIRATORY FAILURE, UNSP W HYPOXI 04/08/2017 GELLENDER DO, AMANDEEP Pineda Ot Z91.19 PATIENT'S NONCOMPLIANCE W [facility] MEDICAL TR 04/08/2017 GELLENDER DO, AMANDEEP Pineda Ot E78.00 PURE HYPERCHOLESTEROLEMIA, UNSPECIFIED 04/08/2017 GELLENDER DO, AMANDEEP Pineda Ot G40.909 EPILEPSY, UNSP, NOT INTRACTABLE, WITHOUT 04/08/2017 GELLENDER DO, AMANDEEP Pineda Ot G62.9 POLYNEUROPATHY, UNSPECIFIED 04/08/2017 GELLENDER DO, AMANDEEP Pineda Ot I10 ESSENTIAL (PRIMARY) HYPERTENSION 04/08/2017 GELLENDER DO, AMADNEEP Pineda Ot J18.9 PNEUMONIA, UNSPECIFIED ORGANISM 04/08/2017 GELLENDER DOAMANDEEP Ot J44.1 CHRONIC OBSTRUCTIVE PULMONARY DISEASE W 04/08/2017 GELLENDER DOAMANDEEP Ot J96.00 ACUTE RESPIRATORY FAILURE, UNSP W HYPOXI 04/08/2017 GELLENDER DOAMANDEEP Ot Z91.19 PATIENT'S NONCOMPLIANCE W [facility] MEDICAL TR 04/30/2017 NOREEN CHÁVEZ APRN Ot E78.00 PURE HYPERCHOLESTEROLEMIA, UNSPECIFIED 04/30/2017 NOREEN CHÁVEZ APRN Ot G40.909 EPILEPSY, UNSP, NOT INTRACTABLE, WITHOUT 04/30/2017 NOREEN CHÁVEZ APRN Ot J44 .9 CHRONIC OBSTRUCTIVE PULMONARY DISEASE, U 04/30/2017 NOREEN CHÁVEZ APRN Ot R04 .0 EPISTAXIS 04/30/2017 NOREEN CHÁVEZ APRN Ot S02.2XXA FRACTURE OF NASAL BONES, INIT ENCNTR FOR 04/30/2017 NOREEN CHÁVEZ APRN Ot W19.XXXA UNSPECIFIED FALL, INITIAL ENCOUNTER 04/30/2017 NOREEN CHÁVEZ APRN Ot Z79.52 [employer] (CURRENT) USE OF SYSTEMIC STER 04/30/2017 NOREEN CHÁVEZ APRN Ot Z87.891 PERSONAL HISTORY OF NICOTINE DEPENDENCE 04/30/2017 NOREEN CHÁVEZ APRN Ot Z88 .6 ALLERGY STATUS TO ANALGESIC AGENT STATUS 04/30/2017 NOREEN CHÁVEZ APRN Ot Z99.81 DEPENDENCE ON SUPPLEMENTAL OXYGEN 04/30/2017 NOREEN CHÁVEZ APRN Ot E78.00 PURE HYPERCHOLESTEROLEMIA, UNSPECIFIED 04/30/2017 NOREEN CHÁVEZ APRN Ot G40.909 EPILEPSY, UNSP, NOT INTRACTABLE, WITHOUT 04/30/2017 NOREEN CHÁVEZ APRN Ot I10 ESSENTIAL (PRIMARY) HYPERTENSION 04/30/2017 NOREEN CHÁVEZ APRN Ot J44 .9 CHRONIC OBSTRUCTIVE PULMONARY DISEASE, U 04/30/2017 NOREEN CHÁVEZ APRN Ot R04 .0 EPISTAXIS 04/30/2017 NOREEN CHÁVEZ APRN Ot Z79.52 [facility] (CURRENT) USE OF SYSTEMIC STER 04/30/2017 NOREEN CHÁVEZ APRN Ot Z87.09 PERSONAL HISTORY OF OTHER DISEASES OF TH 04/30/2017 NOREEN CHÁVEZ APRN, Ot Z87.891 PERSONAL HISTORY OF NICOTINE DEPENDENCE 04/30/2017 NOREEN CHÁVEZ APRN Ot Z88 .6 ALLERGY STATUS TO ANALGESIC AGENT STATUS 05/02/2017 NOREEN CHÁVEZ APRN Ot E78.00 PURE HYPERCHOLESTEROLEMIA, UNSPECIFIED 05/02/2017 NOREEN CHÁVEZ APRN Ot G40.909 EPILEPSY, UNSP, NOT INTRACTABLE, WITHOUT 05/02/2017 NOREEN CHÁVEZ APRN Ot J44 .9 CHRONIC OBSTRUCTIVE PULMONARY DISEASE, U 05/02/2017 NOREEN CHÁVEZ APRN Ot R04 .0 EPISTAXIS 05/02/2017 NOREEN CHÁVEZ APRN Ot S02.2XXA FRACTURE OF NASAL BONES, INIT ENCNTR FOR 05/02/2017 NOREEN CHÁVEZ APRN Ot W19.XXXA UNSPECIFIED FALL, INITIAL ENCOUNTER 05/02/2017 NOREEN CHÁVEZ APRN Ot Z79.52 [facility] (CURRENT) USE OF SYSTEMIC STER 05/02/2017 NOREEN CHÁVEZ APRN Ot Z87.891 PERSONAL HISTORY OF NICOTINE DEPENDENCE 05/02/2017 NOREEN CHÁVEZ APRN Ot Z88 .6 ALLERGY STATUS TO ANALGESIC AGENT STATUS 05/02/2017 NOREEN CHÁVEZ APRN Ot Z99.81 DEPENDENCE ON SUPPLEMENTAL OXYGEN 05/02/2017 NOREEN CHÁVEZ APRN Ot E78.00 PURE HYPERCHOLESTEROLEMIA, UNSPECIFIED 05/02/2017 NOREEN CHÁVEZ APRN Ot G40.909 EPILEPSY, UNSP, NOT INTRACTABLE, WITHOUT 05/02/2017 NOREEN CHÁVEZ APRN Ot I10 ESSENTIAL (PRIMARY) HYPERTENSION 05/02/2017 NOREEN CHÁVEZ APRN Ot J44 .9 CHRONIC OBSTRUCTIVE PULMONARY DISEASE, U 05/02/2017 NOREEN CHÁVEZ APRN Ot R04 .0 EPISTAXIS 05/02/2017 NOREEN CHÁVEZ APRN Ot Z79.52 [facility] (CURRENT) USE OF SYSTEMIC STER 05/02/2017 NOREEN CHÁVEZ APRN Ot Z87.09 PERSONAL HISTORY OF OTHER DISEASES OF TH 05/02/2017 NOREEN CHÁVEZ APRN Ot Z87.891 PERSONAL HISTORY OF NICOTINE DEPENDENCE 05/02/2017 NOREEN CHÁVEZ APRN Ot Z88 .6 ALLERGY STATUS TO ANALGESIC AGENT STATUS 05/23/2017 AMANDEEP GENAO DO Ot E87.1 HYPO-OSMOLALITY AND HYPONATREMIA 05/23/2017 GELLENDER DO, AMANDEEP Pineda Ot G14 POSTPOLIO SYNDROME 05/23/2017 GELLENDER DO, AMANDEEP Pineda Ot G40.909 EPILEPSY, UNSP, NOT INTRACTABLE, WITHOUT 05/23/2017 GELLENDER DO, AMANDEEP Pineda Ot J44.1 CHRONIC OBSTRUCTIVE PULMONARY DISEASE W 05/23/2017 GELLENDER DO, AMANDEEP Pineda Ot J96.20 ACUTE AND CHR RESP FAILURE, UNSP W HYPOX 05/23/2017 GELLENDER DO, AMANDEEP Pineda Ot R91.8 OTHER NONSPECIFIC ABNORMAL FINDING OF DAVID 05/23/2017 GELLENDER DO, AMANDEEP Pineda Ot Z87.891 PERSONAL HISTORY OF NICOTINE DEPENDENCE 05/23/2017 GELLENDER DO, AMANDEEP Pineda Ot Z99.81 DEPENDENCE ON SUPPLEMENTAL OXYGEN 05/23/2017 GELLENDER DO, AMANDEEP Pineda Ot E86.0 DEHYDRATION 05/23/2017 GELLENDER DO, AMANDEEP Pineda Ot E87.1 HYPO-OSMOLALITY AND HYPONATREMIA 05/23/2017 GELLENDER DO, AMANDEEP Pineda Ot G14 POSTPOLIO SYNDROME 05/23/2017 GELLENDER DO, AMANDEEP Pineda Ot G40.909 EPILEPSY, UNSP, NOT INTRACTABLE, WITHOUT 05/23/2017 GELLENDER DO, AMANDEEP Pineda Ot J15.211 PNEUMONIA DUE TO METHICILLIN SUSCEP STAP 05/23/2017 GELLENDER DO, AMANDEEP Pineda Ot J44.0 CHRONIC OBSTRUCTIVE PULMON DISEASE W ACU 05/23/2017 GELLENDER DO, AMANDEEP Pineda Ot J44.1 CHRONIC OBSTRUCTIVE PULMONARY DISEASE W 05/23/2017 GELLENDER DO, AMANDEEP Pineda Ot J96.20 ACUTE AND CHR RESP FAILURE, UNSP W HYPOX 05/23/2017 GELLENDER DO, AMANDEEP Pineda Ot R91.8 OTHER NONSPECIFIC ABNORMAL FINDING OF DAVID 05/23/2017 GELLENDER DO, AMANDEEP Pineda Ot Z87.891 PERSONAL HISTORY OF NICOTINE DEPENDENCE 05/23/2017 GELLENDER DO, AMANDEEP Pineda Ot Z99.81 DEPENDENCE ON SUPPLEMENTAL OXYGEN 06/17/2017 GELLENDER DO, AMANDEEP Pineda Ot R56.9 UNSPECIFIED CONVULSIONS 06/17/2017 GELLENDER DO, AMANDEEP Pineda Ot F17.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, UNSPECIFIED, UNCOMP 06/17/2017 GELLENDER DO, AMANDEEP Pineda Ot J44.9 CHRONIC OBSTRUCTIVE PULMONARY DISEASE, U 06/17/2017 GELLENDER DO, AMANDEEP Pineda Ot R63.4 ABNORMAL WEIGHT LOSS 06/17/2017 GELLENDER DO, AMANDEEP Pineda Ot J44.9 CHRONIC OBSTRUCTIVE PULMONARY DISEASE, U 06/17/2017 GELLENDER DO, AMANDEEP Pineda Ot R63.4 ABNORMAL WEIGHT LOSS 06/17/2017 GELLENDER DO, AMANDEEP Pineda Ot R63.4 ABNORMAL WEIGHT LOSS 06/17/2017 GELLENDER DO, AMANDEEP Pineda Ot G40.909 EPILEPSY, UNSP, NOT INTRACTABLE, WITHOUT 06/17/2017 GELLENDER DO, AMANDEEP Pineda Ot J44.9 CHRONIC OBSTRUCTIVE PULMONARY DISEASE, U 06/17/2017 GELLENDER DO, AMANDEEP Pineda Ot E87.1 HYPO-OSMOLALITY AND HYPONATREMIA 06/17/2017 GELLENDER DO, AMANDEEP Pineda Ot G40.909 EPILEPSY, UNSP, NOT INTRACTABLE, WITHOUT 06/17/2017 GELLENDER DO, AMANDEEP Pineda Ot J44.9 CHRONIC OBSTRUCTIVE PULMONARY DISEASE, U 06/17/2017 GELLENDER DO, AMANDEEP Pineda Ot G40.909 EPILEPSY, UNSP, NOT INTRACTABLE, WITHOUT 06/17/2017 GELLENDER DO, AMANDEEP Pineda Ot J34.89 OTHER SPECIFIED DISORDERS OF NOSE AND NA 06/17/2017 GELLENDER DO, AMANDEEP Pineda Ot S99.912A UNSPECIFIED INJURY OF LEFT ANKLE, INITIA 06/17/2017 GELLENDER DO, AMANDEEP Pineda Ot W19.XXXA UNSPECIFIED FALL, INITIAL ENCOUNTER 06/17/2017 GELLENDER DO, AMANDEEP Pineda Ot Y99.8 OTHER EXTERNAL CAUSE STATUS 06/17/2017 GELLENDER DO, AMANDEEP Pineda Ot G40.909 EPILEPSY, UNSP, NOT INTRACTABLE, WITHOUT 06/17/2017 GELLENDER DO, AMANDEEP Pineda Ot R06.02 SHORTNESS OF BREATH 06/17/2017 GELLENDER DO, AMANDEEP Pineda Ot R63.4 ABNORMAL WEIGHT LOSS 06/30/2017 GELLENDER DO, AMANDEEP Pineda Ot R56.9 UNSPECIFIED CONVULSIONS 06/30/2017 GELLENDER DO, AMANDEEP Pineda Ot F17.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, UNSPECIFIED, UNCOMP 06/30/2017 GELLENDER DO, AMANDEEP Pineda Ot J44.9 CHRONIC OBSTRUCTIVE PULMONARY DISEASE, U 06/30/2017 GELLENDER DO, AMANDEEP Pineda Ot R63.4 ABNORMAL WEIGHT LOSS 06/30/2017 GELLENDER DO, AMANDEEP Pineda Ot J44.9 CHRONIC OBSTRUCTIVE PULMONARY DISEASE, U 06/30/2017 GELLENDER DO, AMANDEEP Pineda Ot R63.4 ABNORMAL WEIGHT LOSS 06/30/2017 BROOKELENDER DO, AMANDEEP Pineda Ot R63.4 ABNORMAL WEIGHT LOSS 06/30/2017 [place] DO, AMANDEEP Pineda Ot G40.909 EPILEPSY, UNSP, NOT INTRACTABLE, WITHOUT 06/30/2017 GELLENDER DO, AMANDEEP Pineda Ot J44.9 CHRONIC OBSTRUCTIVE PULMONARY DISEASE, U 06/30/2017 [place]WICK LASSITER, AMANDEEP Pineda Ot E87.1 HYPO-OSMOLALITY AND HYPONATREMIA 06/30/2017 BROOKELENDER DO, AMANDEEP Pineda Ot G40.909 EPILEPSY, UNSP, NOT INTRACTABLE, WITHOUT 06/30/2017 GELLENDER DO, AMANDEEP Pineda Ot J44.9 CHRONIC OBSTRUCTIVE PULMONARY DISEASE, U 06/30/2017 JOSEDER DO, AMANDEEP Miriam Ot G40.909 EPILEPSY, UNSP, NOT INTRACTABLE, WITHOUT 06/30/2017 GELLENDER DOAMANDEEP Ot J34.89 OTHER SPECIFIED DISORDERS OF NOSE AND NA 06/30/2017 BROOKENUNUBRAYAN AMANDEEP LASSITER Ot S99.912A UNSPECIFIED INJURY OF LEFT ANKLE, INITIA 06/30/2017 CHADWICK LASSITERAMANDEEP Ot W19.XXXA UNSPECIFIED FALL, INITIAL ENCOUNTER 06/30/2017 JOSEBRAYAN AMANDEEP LASSITER Ot Y99.8 OTHER EXTERNAL CAUSE STATUS 06/30/2017 [place] AMANDEEP LASSITER Ot G40.909 EPILEPSY, UNSP, NOT INTRACTABLE, WITHOUT 06/30/2017 GELLENDER DOAMANDEEP Ot R06.02 SHORTNESS OF BREATH 06/30/2017 BROOKENUNUBRAYAN AMANDEEP LASSITER Ot R63.4 ABNORMAL WEIGHT LOSS 06/30/2017 RANI PACHECO DO Ot F17.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, UNSPECIFIED, UNCOMP 06/30/2017 RANI PACHECO DO Ot J96. 21 ACUTE AND CHRONIC RESPIRATORY FAILURE [place] 06/30/2017 RANI PACHECO DO Ot R22. 0 LOCALIZED SWELLING, MASS AND LUMP, HEAD 06/30/2017 RANI PACHECO DO Ot Z99. 81 DEPENDENCE ON SUPPLEMENTAL OXYGEN 07/03/2017 RANI PACHECO DO, Ot J44. 9 CHRONIC OBSTRUCTIVE PULMONARY DISEASE, U 07/03/2017 RANI PACHECO DO Ot M25.559 PAIN IN UNSPECIFIED HIP 07/03/2017 JUNIOR DO, RANI M Ot R91. 8 OTHER NONSPECIFIC ABNORMAL FINDING OF DAVID 07/03/2017 JUNIOR DORANI Ot J44. 9 CHRONIC OBSTRUCTIVE PULMONARY DISEASE, U 07/03/2017 JUNIOR RANI LASSITER Ot M25.559 PAIN IN UNSPECIFIED HIP 07/03/2017 JUNIOR RANI LASSITER Ot R91. 8 OTHER NONSPECIFIC ABNORMAL FINDING OF DAVID 07/03/2017 JUNIOR RANI LASSITER Ot Z72. 0 TOBACCO USE 07/03/2017 RANI PACHECO DO Ot F17.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, UNSPECIFIED, UNCOMP 07/03/2017 JUNIOR RANI LASSITER Ot J96. 21 ACUTE AND CHRONIC RESPIRATORY FAILURE [place] 07/03/2017 RANI PACHECO DO Ot R22. 0 LOCALIZED SWELLING, MASS AND LUMP, HEAD 07/03/2017 RANI PACHECO DO Ot Z99. 81 DEPENDENCE ON SUPPLEMENTAL OXYGEN 07/04/2017 STEPHEN PRICE Ot J18.9 PNEUMONIA, UNSPECIFIED ORGANISM 07/04/2017 STEPHEN PRICE Ot J43.9 EMPHYSEMA, UNSPECIFIED 07/04/2017 STEPHEN PRICE Ot R91.1 SOLITARY PULMONARY NODULE 07/09/2017 AMANDEEP GENAO DO Ot R56.9 UNSPECIFIED CONVULSIONS 07/09/2017 AMANDEEP GENAO DO Ot F17.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, UNSPECIFIED, UNCOMP 07/09/2017 AMANDEEP GENAO DO Ot J44.9 CHRONIC OBSTRUCTIVE PULMONARY DISEASE, U 07/09/2017 AMANDEEP GENAO DO Ot R63.4 ABNORMAL WEIGHT LOSS 07/09/2017 AMANDEEP GENAO DO Ot J44.9 CHRONIC OBSTRUCTIVE PULMONARY DISEASE, U 07/09/2017 AMANDEEP GENAO DO Ot R63.4 ABNORMAL WEIGHT LOSS 07/09/2017 AMANDEEP GENAO DO Ot R63.4 ABNORMAL WEIGHT LOSS 07/09/2017 AMANDEEP GENAO DO Ot G40.909 EPILEPSY, UNSP, NOT INTRACTABLE, WITHOUT 07/09/2017 AMANDEEP GENAO DO Ot J44.9 CHRONIC OBSTRUCTIVE PULMONARY DISEASE, U 07/09/2017 AMANDEEP GENAO DO Ot E87.1 HYPO-OSMOLALITY AND HYPONATREMIA 07/09/2017 AMANDEEP GENAO DO Ot G40.909 EPILEPSY, UNSP, NOT INTRACTABLE, WITHOUT 07/09/2017 GELLENDER DO, AMANDEEP Pineda Ot J44.9 CHRONIC OBSTRUCTIVE PULMONARY DISEASE, U 07/09/2017 GELLENDER DO, AMANDEEP Pineda Ot G40.909 EPILEPSY, UNSP, NOT INTRACTABLE, WITHOUT 07/09/2017 GELLENDER DO, AMANDEEP Pineda Ot J34.89 OTHER SPECIFIED DISORDERS OF NOSE AND NA 07/09/2017 GELLENDER DO, AMANDEEP Pineda Ot S99.912A UNSPECIFIED INJURY OF LEFT ANKLE, INITIA 07/09/2017 GELLENDER DO, AMANDEEP Pineda Ot W19.XXXA UNSPECIFIED FALL, INITIAL ENCOUNTER 07/09/2017 GELLENDER DO, AMANDEEP Pineda Ot Y99.8 OTHER EXTERNAL CAUSE STATUS 07/09/2017 GELNUNUDER DO, AMANDEEP Pineda Ot G40.909 EPILEPSY, UNSP, NOT INTRACTABLE, WITHOUT 07/09/2017 GELLENDER DOAMANDEEP Ot R06.02 SHORTNESS OF BREATH 07/09/2017 AMANDEEP GENAO DO Ot R63.4 ABNORMAL WEIGHT LOSS 07/09/2017 STEPHEN PRICE Ot J43.9 EMPHYSEMA, UNSPECIFIED 07/09/2017 STEPHEN PRICE Ot R91.1 SOLITARY PULMONARY NODULE 07/09/2017 STEPHEN PRICE Ot E78.5 HYPERLIPIDEMIA, UNSPECIFIED 07/09/2017 STEPHEN PRICE Ot G40.909 EPILEPSY, UNSP, NOT INTRACTABLE, WITHOUT 07/09/2017 STEPHEN PRICE Ot J43.9 EMPHYSEMA, UNSPECIFIED 07/09/2017 STEPHEN PRICE Ot M89.9 DISORDER OF BONE, UNSPECIFIED 07/09/2017 STEPHEN PRICE Ot R91.1 SOLITARY PULMONARY NODULE 07/09/2017 STEPHEN PRICE Ot Z79.899 OTHER [facility] (CURRENT) DRUG THERAPY 07/09/2017 STEPHEN PRICE Ot Z87.891 PERSONAL HISTORY OF NICOTINE DEPENDENCE 07/09/2017 RANI PACHECO DO, Ot F17.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, UNSPECIFIED, UNCOMP 07/09/2017 RANI PACHECO DO, Ot J96. 21 ACUTE AND CHRONIC RESPIRATORY FAILURE [place] 07/09/2017 RANI PACHECO DO, Ot R22. 0 LOCALIZED SWELLING, MASS AND LUMP, HEAD 07/09/2017 RANI PACHECO DO, Ot Z99. 81 DEPENDENCE ON SUPPLEMENTAL OXYGEN 07/09/2017 RANI PACHECO DO Ot J44. 9 CHRONIC OBSTRUCTIVE PULMONARY DISEASE, U 07/09/2017 RANI PACHECO DO Ot M25.559 PAIN IN UNSPECIFIED HIP 07/09/2017 RANI PACHECO DO Ot R91. 8 OTHER NONSPECIFIC ABNORMAL FINDING OF DAVID 07/09/2017 RANI PACHECO DO Ot Z72. 0 TOBACCO USE 07/09/2017 AMANDEEP GENAO DO Ot R56.9 UNSPECIFIED CONVULSIONS 07/09/2017 AMANDEEP GENAO DO Ot F17.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, UNSPECIFIED, UNCOMP 07/09/2017 AMANDEEP GENAO DO Ot J44.9 CHRONIC OBSTRUCTIVE PULMONARY DISEASE, U 07/09/2017 AMANDEEP GENAO DO Ot R63.4 ABNORMAL WEIGHT LOSS 07/09/2017 AMANDEEP GENAO DO Ot J44.9 CHRONIC OBSTRUCTIVE PULMONARY DISEASE, U 07/09/2017 AMANDEEP GENAO DO Ot R63.4 ABNORMAL WEIGHT LOSS 07/09/2017 BROOKENUNUBRAYAN AMANDEEP LASSITER Ot R63.4 ABNORMAL WEIGHT LOSS 07/09/2017 [place] LASSITER, AMANDEEP Pineda Ot G40.909 EPILEPSY, UNSP, NOT INTRACTABLE, WITHOUT 07/09/2017 AMANDEEP GENAO DO Ot J44.9 CHRONIC OBSTRUCTIVE PULMONARY DISEASE, U 07/09/2017 AMANDEEP GENAO DO Ot E87.1 HYPO-OSMOLALITY AND HYPONATREMIA 07/09/2017 AMANDEEP GENAO DO Ot G40.909 EPILEPSY, UNSP, NOT INTRACTABLE, WITHOUT 07/09/2017 AMANDEEP GENAO DO Ot J44.9 CHRONIC OBSTRUCTIVE PULMONARY DISEASE, U 07/09/2017 [place] AMANDEEP LASSITER Ot G40.909 EPILEPSY, UNSP, NOT INTRACTABLE, WITHOUT 07/09/2017 AMANDEEP GENAO DO Ot J34.89 OTHER SPECIFIED DISORDERS OF NOSE AND NA 07/09/2017 AMANDEEP GENAO DO Ot S99.912A UNSPECIFIED INJURY OF LEFT ANKLE, INITIA 07/09/2017 AMANDEEP GENAO DO Ot W19.XXXA UNSPECIFIED FALL, INITIAL ENCOUNTER 07/09/2017 AMANDEEP GENAO DO Ot Y99.8 OTHER EXTERNAL CAUSE STATUS 07/09/2017 CH[place]WICK LASSITERAMANDEEP Ot G40.909 EPILEPSY, UNSP, NOT INTRACTABLE, WITHOUT 07/09/2017 [place] DO AMANDEEP Pineda Ot R06.02 SHORTNESS OF BREATH 07/09/2017 [place] DO AMANDEEP Pineda Ot R63.4 ABNORMAL WEIGHT LOSS 07/09/2017 STEPHEN PRICE Ot J43.9 EMPHYSEMA, UNSPECIFIED 07/09/2017 STEPHEN PRICE Ot R91.1 SOLITARY PULMONARY NODULE 07/09/2017 STEPHEN PRICE Ot E78.5 HYPERLIPIDEMIA, UNSPECIFIED 07/09/2017 STEPHEN PRICE Ot G40.909 EPILEPSY, UNSP, NOT INTRACTABLE, WITHOUT 07/09/2017 STEPHEN PRICE Ot J43.9 EMPHYSEMA, UNSPECIFIED 07/09/2017 STEPHEN PRICE Ot M89.9 DISORDER OF BONE, UNSPECIFIED 07/09/2017 STEPHEN PRICE Ot R91.1 SOLITARY PULMONARY NODULE 07/09/2017 STEPHEN PRICE Ot Z79.899 OTHER [facility] (CURRENT) DRUG THERAPY 07/09/2017 STEPHEN PRICE Ot Z87.891 PERSONAL HISTORY OF NICOTINE DEPENDENCE 07/09/2017 RANI PACHECO DO Ot F17.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, UNSPECIFIED, UNCOMP 07/09/2017 RANI PACHECO DO Ot J96. 21 ACUTE AND CHRONIC RESPIRATORY FAILURE WI 07/09/2017 RANI PACHECO DO Ot R22. 0 LOCALIZED SWELLING, MASS AND LUMP, HEAD 07/09/2017 RANI PACHECO DO Ot Z99. 81 DEPENDENCE ON SUPPLEMENTAL OXYGEN 07/09/2017 RANI PACHECO DO Ot J44. 9 CHRONIC OBSTRUCTIVE PULMONARY DISEASE, U 07/09/2017 RANI PACHECO DO, Ot M25.559 PAIN IN UNSPECIFIED HIP 07/09/2017 RANI PACHECO DO Ot R91. 8 OTHER NONSPECIFIC ABNORMAL FINDING OF DAVID 07/09/2017 RANI PACHECO DO Ot Z72. 0 TOBACCO USE 07/09/2017 STEPHEN PRICE Ot 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 07/09/2017 STEPHEN PRICE Ot R91.1 SOLITARY PULMONARY NODULE 07/09/2017 STEPHEN PRICE Ot Z87.891 PERSONAL HISTORY OF NICOTINE DEPENDENCE 07/15/2017 STEPHEN PRICE N Ot E78.5 HYPERLIPIDEMIA, UNSPECIFIED 07/15/2017 DEESTEPHEN PATRICIO N Ot G40.909 EPILEPSY, UNSP, NOT INTRACTABLE, WITHOUT 07/15/2017 DEESTEPHEN PATRICIO N Ot J43.9 EMPHYSEMA, UNSPECIFIED 07/15/2017 STEPHEN PRICE N Ot M89.9 DISORDER OF BONE, UNSPECIFIED 07/15/2017 DEESTEPHEN PATRICIO N Ot R91.1 SOLITARY PULMONARY NODULE 07/15/2017 STEPHEN PRICE N Ot Z79.899 OTHER [facility] (CURRENT) DRUG THERAPY 07/15/2017 DEESTEPHEN PATRICIO N Ot Z87.891 PERSONAL HISTORY OF NICOTINE DEPENDENCE 07/17/2017 STEPHEN PRICE N Ot 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 07/17/2017 STEPHEN PRICE N Ot R91.1 SOLITARY PULMONARY NODULE 07/17/2017 STEPHEN PRICE N Ot Z87.891 PERSONAL HISTORY OF NICOTINE DEPENDENCE 07/18/2017 STEPHEN PRICE N Ot E78.5 HYPERLIPIDEMIA, UNSPECIFIED 07/18/2017 DEESTEPHEN N Ot G40.909 EPILEPSY, UNSP, NOT INTRACTABLE, WITHOUT 07/18/2017 DEESTEPHEN PATRICIO N Ot J43.9 EMPHYSEMA, UNSPECIFIED 07/18/2017 STEPHEN PRICE N Ot M89.9 DISORDER OF BONE, UNSPECIFIED 07/18/2017 DEESTEPHEN PATRICIO N Ot R91.1 SOLITARY PULMONARY NODULE 07/18/2017 STEPHEN PRICE N Ot Z79.899 OTHER [facility] (CURRENT) DRUG THERAPY 07/18/2017 STEPHEN PRICE N Ot Z87.891 PERSONAL HISTORY OF NICOTINE DEPENDENCE 07/21/2017 STEPHEN PRICE N Ot J43.9 EMPHYSEMA, UNSPECIFIED 07/21/2017 DEETSEPHEN N Ot R91.1 SOLITARY PULMONARY NODULE 07/21/2017 RANI PACHECO DO Ot J44. 9 CHRONIC OBSTRUCTIVE PULMONARY DISEASE, U 07/21/2017 RANI PACHECO DO Ot M25.559 PAIN IN UNSPECIFIED HIP 07/21/2017 RANI PACHECO DO Ot R91. 8 OTHER NONSPECIFIC ABNORMAL FINDING OF DAVID 07/21/2017 RANI PACHECO DO Ot Z72. 0 TOBACCO USE 07/23/2017 ARCELIA PACHECO DOSON Crispin Ot J44. 9 CHRONIC OBSTRUCTIVE PULMONARY DISEASE, U 07/23/2017 RANI PACHECO DO Crispin Ot M25.559 PAIN IN UNSPECIFIED HIP 07/23/2017 RANI PACHECO DO Crispin Ot R91. 8 OTHER NONSPECIFIC ABNORMAL FINDING OF DAVID 07/23/2017 RANI PACHECO DO Crispin Ot Z72. 0 TOBACCO USE 07/23/2017 CÉSAR NEGRETE DO Ot C34. 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 5 HYPERLIPIDEMIA, UNSPECIFIED 07/24/2017 CÉSAR NEGRETE DO Ot G14 POSTPOLIO SYNDROME 07/24/2017 CÉSAR NEGRETE DO Ot G40.909 EPILEPSY, UNSP, NOT INTRACTABLE, WITHOUT 07/24/2017 CÉSAR NEGRETE DO Ot G47. 33 OBSTRUCTIVE SLEEP APNEA (ADULT) (PEDIATR 07/24/2017 CÉSAR NEGRETE DO Ot I10 ESSENTIAL (PRIMARY) HYPERTENSION 07/24/2017 CÉSAR NEGRETE DO Ot J44. 9 CHRONIC OBSTRUCTIVE PULMONARY DISEASE, U 07/24/2017 CÉSAR NEGRETE DO Ot J45.909 UNSPECIFIED ASTHMA, UNCOMPLICATED 07/24/2017 CÉSAR NEGRETE DO Ot R91. 8 OTHER NONSPECIFIC ABNORMAL FINDING OF DAVID 07/24/2017 CÉSAR NEGRETE DO Ot Z79.899 OTHER [facility] (CURRENT) DRUG THERAPY 07/24/2017 CÉSAR NEGRETE DO Ot Z87.891 PERSONAL HISTORY OF NICOTINE DEPENDENCE 07/24/2017 CÉSAR NEGRETE DO Ot Z99. 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 5 HYPERLIPIDEMIA, UNSPECIFIED 07/25/2017 CÉSAR NEGRETE DO Ot G14 POSTPOLIO SYNDROME 07/25/2017 CÉSAR NEGRETE DO Ot G40.909 EPILEPSY, UNSP, NOT INTRACTABLE, WITHOUT 07/25/2017 CÉSAR NEGRETE DO Ot G47. 33 OBSTRUCTIVE SLEEP APNEA (ADULT) (PEDIATR 07/25/2017 CÉSAR NEGRETE DO Ot I10 ESSENTIAL (PRIMARY) HYPERTENSION 07/25/2017 CÉSAR NEGRETE DO Ot J44. 9 CHRONIC OBSTRUCTIVE PULMONARY DISEASE, U 07/25/2017 CÉSAR NEGRETE DO Ot J45.909 UNSPECIFIED ASTHMA, UNCOMPLICATED 07/25/2017 CÉSAR NEGRETE DO Ot R91. 8 OTHER NONSPECIFIC ABNORMAL FINDING OF DAVID 07/25/2017 CÉSAR NEGRETE DO Ot Z79.899 OTHER [facility] (CURRENT) DRUG THERAPY 07/25/2017 CÉSAR NEGRETE DO Ot Z87.891 PERSONAL HISTORY OF NICOTINE DEPENDENCE 07/25/2017 CÉSAR NEGRETE DO Ot Z99. 81 DEPENDENCE ON SUPPLEMENTAL OXYGEN 07/28/2017 STEPHEN PRICE Ot E78.5 HYPERLIPIDEMIA, UNSPECIFIED 07/28/2017 STEPHEN PRICE Ot G40.909 EPILEPSY, UNSP, NOT INTRACTABLE, WITHOUT 07/28/2017 STEPHEN PRICE Ot J43.9 EMPHYSEMA, UNSPECIFIED 07/28/2017 STEPHEN PRICE Ot M89.9 DISORDER OF BONE, UNSPECIFIED 07/28/2017 STEPHEN PRICE Ot R91.1 SOLITARY PULMONARY NODULE 07/28/2017 STEPHEN PRICE Ot Z79.899 OTHER [facility] (CURRENT) DRUG THERAPY 07/28/2017 STEPHEN PRICE Ot Z87.891 PERSONAL HISTORY OF NICOTINE DEPENDENCE 07/29/2017 AMANDEEP GENAO DO Ot J44.9 CHRONIC OBSTRUCTIVE PULMONARY DISEASE, U 07/29/2017 AMANDEEP GENAO DO Ot J44.9 CHRONIC OBSTRUCTIVE PULMONARY DISEASE, U 07/29/2017 DEESTEPHEN PATRICIO Ot E78.5 HYPERLIPIDEMIA, UNSPECIFIED 07/29/2017 STEPHEN PRICE Ot G40.909 EPILEPSY, UNSP, NOT INTRACTABLE, WITHOUT 07/29/2017 STEPHEN PRICE N Ot J43.9 EMPHYSEMA, UNSPECIFIED 07/29/2017 DEESTEPHEN PATRICIO N Ot M89.9 DISORDER OF BONE, UNSPECIFIED 07/29/2017 STEPHEN PRICE N Ot R91.1 SOLITARY PULMONARY NODULE 07/29/2017 STEPHEN PRICE Ot Z79.899 OTHER [facility] (CURRENT) DRUG THERAPY 07/29/2017 STEPHEN PRICE Ot Z87.891 PERSONAL HISTORY OF NICOTINE DEPENDENCE 08/01/2017 STEPHEN PRICE Ot 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 08/01/2017 STEPHEN PRICE Ot R91.1 SOLITARY PULMONARY NODULE 08/01/2017 STEPHEN PRICE Ot Z87.891 PERSONAL HISTORY OF NICOTINE DEPENDENCE 08/01/2017 [facility] AMANDEEP Pineda Ot C34.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 08/01/2017 [facility] , AMANDEEP Pineda Ot E78.00 PURE HYPERCHOLESTEROLEMIA, UNSPECIFIED 08/01/2017 [facility] , AMANDEEP Pineda Ot G14 POSTPOLIO SYNDROME 08/01/2017 [facility] Ot G40.909 EPILEPSY, UNSP, NOT INTRACTABLE, WITHOUT 08/01/2017 [facility] AMANDEEP LASSITER Ot G47.30 SLEEP APNEA, UNSPECIFIED 08/01/2017 [facility] AMANDEEP LASSITER Ot I10 ESSENTIAL (PRIMARY) HYPERTENSION 08/01/2017 [facility] AMANDEEP LASSITER Ot J18.9 PNEUMONIA, UNSPECIFIED ORGANISM 08/01/2017 AMANDEEP GENAO DO Ot J44.0 CHRONIC OBSTRUCTIVE PULMON DISEASE W ACU 08/01/2017 [facility] AMANDEEP LASSITER Ot J44.1 CHRONIC OBSTRUCTIVE PULMONARY DISEASE W 08/01/2017 [facility] Ot J96.21 ACUTE AND CHRONIC RESPIRATORY FAILURE WI 08/01/2017 [facility] AMANDEEP LASSITER Ot R09.02 HYPOXEMIA 08/01/2017 [facility] AMANDEEP LASSITER Ot Z87.891 PERSONAL HISTORY OF NICOTINE DEPENDENCE 08/05/2017 VANESSA GUTHRIE MD Ot E78.00 PURE HYPERCHOLESTEROLEMIA, UNSPECIFIED 08/05/2017 VANESSA GUTHRIE MD Ot G40.909 EPILEPSY, UNSP, NOT INTRACTABLE, WITHOUT 08/05/2017 VANESSA GUTHRIE MD Ot G47.30 SLEEP APNEA, UNSPECIFIED 08/05/2017 VANESSA GUTHRIE MD Ot I10 ESSENTIAL (PRIMARY) HYPERTENSION 08/05/2017 VANESSA GUTHRIE MD Ot J44.1 CHRONIC OBSTRUCTIVE PULMONARY DISEASE W 08/05/2017 VANESSA GUTHRIE MD Ot R06.03 ACUTE RESPIRATORY DISTRESS 08/05/2017 VANESSA GUTHRIE MD Ot Z79.51 [facility] (CURRENT) USE OF INHALED STERO 08/05/2017 VANESSA GUTHRIE MD Ot Z82.49 FAMILY HX OF ISCHEM HEART DIS AND OTH DI 08/05/2017 VANESSA GUTHRIE MD, Ot Z87.01 PERSONAL HISTORY OF PNEUMONIA (RECURRENT 08/05/2017 VANESSA GUTHRIE MD, Ot Z87.891 PERSONAL HISTORY OF NICOTINE DEPENDENCE 08/05/2017 VANESSA GUTHRIE MD, Ot Z88.6 ALLERGY STATUS TO ANALGESIC AGENT STATUS 08/05/2017 VANESSA GUTHRIE MD, Ot Z88.8 ALLERGY STATUS TO OTH DRUG/MEDS/BIOL SUB 08/06/2017 AMANDEEP GENAO DO Ot C34.90 MALIGNANT NEOPLASM OF UNSP PART OF [facility] 08/06/2017 AMANDEEP GENAO DO Ot E78.00 PURE HYPERCHOLESTEROLEMIA, UNSPECIFIED 08/06/2017 AMANDEEP GNEAO DO Ot G14 POSTPOLIO SYNDROME 08/06/2017 AMANDEEP GENAO DO Ot G40.909 EPILEPSY, UNSP, NOT INTRACTABLE, WITHOUT 08/06/2017 AMANDEEP GENAO DO Ot G47.30 SLEEP APNEA, UNSPECIFIED 08/06/2017 AMANDEEP GENAO DO Ot I10 ESSENTIAL (PRIMARY) HYPERTENSION 08/06/2017 AMANDEEP GENAO DO Ot J18.9 PNEUMONIA, UNSPECIFIED ORGANISM 08/06/2017 AMANDEEP GENAO DO Ot J44.0 CHRONIC OBSTRUCTIVE PULMON DISEASE W ACU 08/06/2017 AMANDEEP GENAO DO Ot J44.1 CHRONIC OBSTRUCTIVE PULMONARY DISEASE W 08/06/2017 AMANDEEP GENAO DO Ot J96.20 ACUTE AND CHR RESP FAILURE, UNSP W HYPOX 08/06/2017 AMANDEEP GENAO DO Ot Z87.891 PERSONAL HISTORY OF NICOTINE DEPENDENCE 08/06/2017 AMANDEEP GENAO DO Ot Z99.81 DEPENDENCE ON SUPPLEMENTAL OXYGEN 08/07/2017 AMANDEEP GENAO DO Ot C34.90 MALIGNANT NEOPLASM OF UNSP PART OF [facility] 08/07/2017 AMANDEEP GENAO DO Ot E78.00 PURE HYPERCHOLESTEROLEMIA, UNSPECIFIED 08/07/2017 GELLENDER DO, AMANDEEP Pineda Ot G14 POSTPOLIO SYNDROME 08/07/2017 GELLENDER DO, AMANDEEP Pineda Ot G40.909 EPILEPSY, UNSP, NOT INTRACTABLE, WITHOUT 08/07/2017 GELLENDER DO, AMANDEEP Pineda Ot G47.30 SLEEP APNEA, UNSPECIFIED 08/07/2017 GELLENDER DO, AMANDEEP Pineda Ot I10 ESSENTIAL (PRIMARY) HYPERTENSION 08/07/2017 GELLENDER DO, AMANDEEP Pineda Ot J18.9 PNEUMONIA, UNSPECIFIED ORGANISM 08/07/2017 GELLENDER DO, AMANDEEP Pineda Ot J44.0 CHRONIC OBSTRUCTIVE PULMON DISEASE W ACU 08/07/2017 GELLENDER DO, AMANDEEP Pineda Ot J44.1 CHRONIC OBSTRUCTIVE PULMONARY DISEASE W 08/07/2017 GELLENDER DO, AMANDEEP Pineda Ot J96.20 ACUTE AND CHR RESP FAILURE, UNSP W HYPOX 08/07/2017 GELLENDER DO, AMANDEEP Pineda Ot Z87.891 PERSONAL HISTORY OF NICOTINE DEPENDENCE 08/07/2017 GELLENDER DO, AMANDEEP Pineda Ot Z99.81 DEPENDENCE ON SUPPLEMENTAL OXYGEN 08/07/2017 GELLENDER DO, AMANDEEP Pineda Ot C34.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 08/07/2017 GELLENDER DO, AMANDEEP Pineda Ot E78.00 PURE HYPERCHOLESTEROLEMIA, UNSPECIFIED 08/07/2017 GELLENDER DO, AMANDEEP Pineda Ot G14 POSTPOLIO SYNDROME 08/07/2017 GELLENDER DO, AMANDEEP Pineda Ot G40.909 EPILEPSY, UNSP, NOT INTRACTABLE, WITHOUT 08/07/2017 GELLENDER DO, AMANDEEP Pineda Ot G47.30 SLEEP APNEA, UNSPECIFIED 08/07/2017 GELLENDER DO, AMANDEEP Pineda Ot I10 ESSENTIAL (PRIMARY) HYPERTENSION 08/07/2017 GELLENDER DO, AMANDEEP Pineda Ot J18.9 PNEUMONIA, UNSPECIFIED ORGANISM 08/07/2017 GELLENDER DO, AMANDEEP Pineda Ot J44.0 CHRONIC OBSTRUCTIVE PULMON DISEASE W ACU 08/07/2017 GELLENDER DO, AMANDEEP Pineda Ot J44.1 CHRONIC OBSTRUCTIVE PULMONARY DISEASE W 08/07/2017 GELLENDER DO, AMANDEEP Pineda Ot J96.20 ACUTE AND CHR RESP FAILURE, UNSP W HYPOX 08/07/2017 GELLENDER DO, AMANDEEP Pineda Ot Z87.891 PERSONAL HISTORY OF NICOTINE DEPENDENCE 08/07/2017 GELLENDER DO, AMANDEEP A Ot Z99.81 DEPENDENCE ON SUPPLEMENTAL OXYGEN 08/29/2017 NINA ANAYA [employer] PRESS TENDER Ot M79.604 PAIN IN RIGHT LEG 08/29/2017 HÉCTOR NINA Bustos [employer] PRESS TENDER Ot M79.605 PAIN IN LEFT LEG 08/29/2017 IRMA ANAYAINE Juli [employer] PRESS TENDER Ot M79.89 OTHER SPECIFIED SOFT TISSUE DISORDERS 08/29/2017 IRMA ANAYAINE E [employer] PRESS TENDER Ot R91.8 OTHER NONSPECIFIC ABNORMAL FINDING OF DAVID 08/29/2017 NINA ANAYA [employer] PRESS TENDER Ot M79.604 PAIN IN RIGHT LEG 08/29/2017 NINA ANAYA [employer] PRESS TENDER Ot M79.605 PAIN IN LEFT LEG 08/29/2017 HÉCTORNINA TATUM [employer] PRESS TENDER Ot M79.89 OTHER SPECIFIED SOFT TISSUE DISORDERS 08/29/2017 NINA ANAYA [employer] PRESS TENDER Ot R91.8 OTHER NONSPECIFIC ABNORMAL FINDING OF DAVID 09/08/2017 RESENDIZSIVA S [employer]IDE [employer] NETWORK 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 Ot C34.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, LEFT B 09/08/2017 RESENDIZSIVA Rodriguez S WIDE ARE[employer] NETWORK 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 Ot C79.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 09/10/2017 RESENDIZ HILBRENDA S WIDE AREA NETWORK 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 Ot C34.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, LEFT B 09/10/2017 RESENDIZSIVA S WIDE [employer] NETWORK 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 Ot C79.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 09/10/2017 NINA ANAYA [employer] PRESS TENDER Ot M79.604 PAIN IN RIGHT LEG 09/10/2017 NINA ANAYA [employer] PRESS TENDER Ot M79.605 PAIN IN LEFT LEG 09/10/2017 NINA ANAYA [employer] PRESS TENDER Ot M79.89 OTHER SPECIFIED SOFT TISSUE DISORDERS 09/10/2017 NINA ANAYA [employer] PRESS TENDER Ot R91.8 OTHER NONSPECIFIC ABNORMAL FINDING OF DAVID 09/11/2017 STEPHEN PRICE Ot E78.5 HYPERLIPIDEMIA, UNSPECIFIED 09/11/2017 STEPHEN PRICE Ot G40.909 EPILEPSY, UNSP, NOT INTRACTABLE, WITHOUT 09/11/2017 STEPHEN PRICE N Ot J43.9 EMPHYSEMA, UNSPECIFIED 09/11/2017 STEPHEN PRICE N Ot M89.9 DISORDER OF BONE, UNSPECIFIED 09/11/2017 STEPHEN PRICE Ot R91.1 SOLITARY PULMONARY NODULE 09/11/2017 STEPHEN PRICE Ot Z79.899 [facility] (CURRENT) DRUG THERAPY 09/11/2017 STEPHEN PRICE Ot Z87.891 PERSONAL HISTORY OF NICOTINE DEPENDENCE 09/15/2017 STEPHEN PRICE Ot E78.5 HYPERLIPIDEMIA, UNSPECIFIED 09/15/2017 STEPHEN PRICE Ot G40.909 EPILEPSY, UNSP, NOT INTRACTABLE, WITHOUT 09/15/2017 STEPHEN PRICE Ot J43.9 EMPHYSEMA, UNSPECIFIED 09/15/2017 STEPHEN PRICE Ot M89.9 DISORDER OF BONE, UNSPECIFIED 09/15/2017 STEPHEN PRICE Ot R91.1 SOLITARY PULMONARY NODULE 09/15/2017 STEPHEN PRICE Ot Z79.899 OTHER [facility] (CURRENT) DRUG THERAPY 09/15/2017 STEPHEN PRICE Ot Z87.891 PERSONAL HISTORY OF NICOTINE DEPENDENCE 09/17/2017 SIVA RESENDIZ WIDE AREA NETWORK 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 Ot C34.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, LEFT B 09/17/2017 SIVA RESENDIZ WIDE AREA NETWORK 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 Ot C79.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 09/24/2017 GELLENDER DO, AMANDEEP Pineda Ot J44.9 CHRONIC OBSTRUCTIVE PULMONARY DISEASE, U 09/24/2017 GELLENDER DO, AMANDEEP Pineda Ot C34.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 09/24/2017 GELLENDER DOAMANDEEP Ot C79.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 09/24/2017 GELLENDER DO, AMANDEEP Pineda Ot E78.00 PURE HYPERCHOLESTEROLEMIA, UNSPECIFIED 09/24/2017 GELLENDER DOAMANDEEP Ot G14 POSTPOLIO SYNDROME 09/24/2017 GELLENDER DOAMANDEEP Ot G40.909 EPILEPSY, UNSP, NOT INTRACTABLE, WITHOUT 09/24/2017 GELLENDER DOAMANDEEP Ot G47.30 SLEEP APNEA, UNSPECIFIED 09/24/2017 GELLENDER DOAMANDEEP Ot I10 ESSENTIAL (PRIMARY) HYPERTENSION 09/24/2017 GELLENDER DOAMANDEEP Ot J18.9 PNEUMONIA, UNSPECIFIED ORGANISM 09/24/2017 GELLENDER DOAMANDEEP Ot J30.2 OTHER SEASONAL ALLERGIC RHINITIS 09/24/2017 GELLENDER DOAMANDEEP Ot J43.9 EMPHYSEMA, UNSPECIFIED 09/24/2017 GELLENDER DOAMANDEEP Ot M19.91 PRIMARY OSTEOARTHRITIS, UNSPECIFIED SITE 09/24/2017 GELLENDER DO, AMANDEEP Pineda Ot Z79.899 OTHER [facility] (CURRENT) DRUG THERAPY 09/24/2017 GELLENDER DO, AMANDEEP Pineda Ot Z87.891 PERSONAL HISTORY OF NICOTINE DEPENDENCE 09/24/2017 GELLENDER DO, AMANDEEP Pineda Ot Z99.81 DEPENDENCE ON SUPPLEMENTAL OXYGEN 09/25/2017 GELLENDER DO, AMANDEEP Pineda Ot C34.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 09/25/2017 GELLENDER DO, AMANDEEP Pineda Ot C79.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 09/25/2017 GELLENDER DO, AMANDEEP Pineda Ot E78.00 PURE HYPERCHOLESTEROLEMIA, UNSPECIFIED 09/25/2017 GELLENDER DO, AMANDEEP Pineda Ot G14 POSTPOLIO SYNDROME 09/25/2017 GELLENDER DO, AMANDEEP Pineda Ot G40.909 EPILEPSY, UNSP, NOT INTRACTABLE, WITHOUT 09/25/2017 GELLENDER DO, AMANDEEP Pineda Ot G47.30 SLEEP APNEA, UNSPECIFIED 09/25/2017 GELLENDER DO, AMANDEEP Pineda Ot I10 ESSENTIAL (PRIMARY) HYPERTENSION 09/25/2017 GELLENDER DO, AMANDEEP Pineda Ot J18.9 PNEUMONIA, UNSPECIFIED ORGANISM 09/25/2017 GELLENDER DO, AMANDEEP Pineda Ot J30.2 OTHER SEASONAL ALLERGIC RHINITIS 09/25/2017 GELLENDER DO, AMANDEEP Pineda Ot J43.9 EMPHYSEMA, UNSPECIFIED 09/25/2017 GELLENDER DO, AMANDEEP Pineda Ot M19.91 PRIMARY OSTEOARTHRITIS, UNSPECIFIED SITE 09/25/2017 GELLENDER DO, AMANDEEP Pineda Ot Z79.899 OTHER [facility] (CURRENT) DRUG THERAPY 09/25/2017 GELLENDER DO, AMANDEEP Pineda Ot Z87.891 PERSONAL HISTORY OF NICOTINE DEPENDENCE 09/25/2017 GELLENDER DO, AMANDEEP Pineda Ot Z99.81 DEPENDENCE ON SUPPLEMENTAL OXYGEN 09/26/2017 GELLENDER DO, AMANDEEP Pineda Ot C34.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 09/26/2017 GELLENDER DO, AMANDEEP Pineda Ot C79.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 09/26/2017 GELLENDER DO, AMANDEEP Pineda Ot E78.00 PURE HYPERCHOLESTEROLEMIA, UNSPECIFIED 09/26/2017 GELLENDER DO, AMANDEEP Pineda Ot G14 POSTPOLIO SYNDROME 09/26/2017 GELLENDER DO, AMANDEEP Pineda Ot G40.909 EPILEPSY, UNSP, NOT INTRACTABLE, WITHOUT 09/26/2017 GELLENDER DO, AMANDEEP Pineda Ot G47.30 SLEEP APNEA, UNSPECIFIED 09/26/2017 GELLENDER DO, AMANDEEP Pineda Ot I10 ESSENTIAL (PRIMARY) HYPERTENSION 09/26/2017 GELLENDER DO, AMANDEEP Pineda Ot J18.9 PNEUMONIA, UNSPECIFIED ORGANISM 09/26/2017 GELLENDER DO, AMANDEEP Pineda Ot J30.2 OTHER SEASONAL ALLERGIC RHINITIS 09/26/2017 GELLENDER DO, AMANDEEP Pineda Ot J43.9 EMPHYSEMA, UNSPECIFIED 09/26/2017 GELLENDER DO, AMANDEEP Pineda Ot M19.91 PRIMARY OSTEOARTHRITIS, UNSPECIFIED SITE 09/26/2017 GELLENDER DO, AMANDEEP Pineda Ot Z79.899 OTHER [facility] (CURRENT) DRUG THERAPY 09/26/2017 GELLENDER DO, AMANDEEP Pineda Ot Z87.891 PERSONAL HISTORY OF NICOTINE DEPENDENCE 09/26/2017 GELLENDER DO, AMANDEEP Pineda Ot Z99.81 DEPENDENCE ON SUPPLEMENTAL OXYGEN 09/26/2017 GELLENDER DO, AMANDEEP Pineda Ot C34.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 09/26/2017 GELLENDER DO, AMANDEEP Pineda Ot C79.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 09/26/2017 GELLENDER DO, AMANDEEP Pineda Ot E78.00 PURE HYPERCHOLESTEROLEMIA, UNSPECIFIED 09/26/2017 GELLENDER DO, AMANDEEP Pineda Ot G14 POSTPOLIO SYNDROME 09/26/2017 GELLENDER DO, AMANDEEP Pineda Ot G40.909 EPILEPSY, UNSP, NOT INTRACTABLE, WITHOUT 09/26/2017 GELLENDER DO, AMANDEEP Pineda Ot G47.30 SLEEP APNEA, UNSPECIFIED 09/26/2017 GELLENDER DO, AMANDEEP Pineda Ot I10 ESSENTIAL (PRIMARY) HYPERTENSION 09/26/2017 GELLENDER DO, AMANDEEP Pineda Ot J18.9 PNEUMONIA, UNSPECIFIED ORGANISM 09/26/2017 GELLENDER DO, AMANDEEP Pineda Ot J30.2 OTHER SEASONAL ALLERGIC RHINITIS 09/26/2017 GELLENDER DO, AMANDEEP Pineda Ot J43.9 EMPHYSEMA, UNSPECIFIED 09/26/2017 GELLENDER DO, AMANDEEP Pineda Ot M19.91 PRIMARY OSTEOARTHRITIS, UNSPECIFIED SITE 09/26/2017 GELLENDER DO, AMANDEEP Pineda Ot Z79.899 [facility] (CURRENT) DRUG THERAPY 09/26/2017 GELLENDER DO, AMANDEEP Pineda Ot Z87.891 PERSONAL HISTORY OF NICOTINE DEPENDENCE 09/26/2017 GELLENDER DO, AMANDEEP Pineda Ot Z99.81 DEPENDENCE ON SUPPLEMENTAL OXYGEN 09/26/2017 GELLENDER DO, AMANDEEP Pineda Ot C34.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 09/26/2017 GELLENDER DO, AMANDEEP Pineda Ot C79.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 09/26/2017 GELLENDER DO, AMANDEEP Pineda Ot E78.00 PURE HYPERCHOLESTEROLEMIA, UNSPECIFIED 09/26/2017 GELLENDER DO, AMANDEEP Pineda Ot G14 POSTPOLIO SYNDROME 09/26/2017 GELLENDER DO, AMANDEEP Pineda Ot G40.909 EPILEPSY, UNSP, NOT INTRACTABLE, WITHOUT 09/26/2017 GELLENDER DO, AMANDEEP Pineda Ot G47.30 SLEEP APNEA, UNSPECIFIED 09/26/2017 GELLENDER DO, AMANDEEP Pineda Ot I10 ESSENTIAL (PRIMARY) HYPERTENSION 09/26/2017 GELLENDER DO, AMANDEEP Pineda Ot J18.9 PNEUMONIA, UNSPECIFIED ORGANISM 09/26/2017 GELLENDER DO, AMANDEEP Pineda Ot J30.2 OTHER SEASONAL ALLERGIC RHINITIS 09/26/2017 GELLENDER DO, AMANDEEP Pineda Ot J43.9 EMPHYSEMA, UNSPECIFIED 09/26/2017 GELLENDER DO, AMANDEEP Pineda Ot M19.91 PRIMARY OSTEOARTHRITIS, UNSPECIFIED SITE 09/26/2017 GELLENDER DO, AMANDEEP Pineda Ot Z79.899 [facility] (CURRENT) DRUG THERAPY 09/26/2017 GELLENDER DO, AMANDEEP Pineda Ot Z87.891 PERSONAL HISTORY OF NICOTINE DEPENDENCE 09/26/2017 GELLENDER DO, AMANDEEP Pineda Ot Z99.81 DEPENDENCE ON SUPPLEMENTAL OXYGEN 09/26/2017 GELLENDER DO, AMANDEEP Pineda Ot C34.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 09/26/2017 GELLENDER DO, AMANDEEP Pineda Ot C79.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 09/26/2017 GELLENDER DO, AMANDEEP Pineda Ot E78.00 PURE HYPERCHOLESTEROLEMIA, UNSPECIFIED 09/26/2017 GELLENDER DO, AMANDEEP Pineda Ot G14 POSTPOLIO SYNDROME 09/26/2017 GELLENDER DO, AMANDEEP Pineda Ot G40.909 EPILEPSY, UNSP, NOT INTRACTABLE, WITHOUT 09/26/2017 GELLENDER DO, AMANDEEP Pineda Ot G47.30 SLEEP APNEA, UNSPECIFIED 09/26/2017 GELLENDER DO, AMANDEEP Pineda Ot I10 ESSENTIAL (PRIMARY) HYPERTENSION 09/26/2017 GELLENDER DO, AMANDEEP Pineda Ot J18.9 PNEUMONIA, UNSPECIFIED ORGANISM 09/26/2017 GELLENDER DO, AMANDEEP Pineda Ot J30.2 OTHER SEASONAL ALLERGIC RHINITIS 09/26/2017 GELLENDER DO, AMANDEEP Pineda Ot J43.9 EMPHYSEMA, UNSPECIFIED 09/26/2017 GELLENDER DO, AMANDEEP Pineda Ot M19.91 PRIMARY OSTEOARTHRITIS, UNSPECIFIED SITE 09/26/2017 GELLENDER DO, AMANDEEP Pineda Ot Z79.899 [facility] (CURRENT) DRUG THERAPY 09/26/2017 GELLENDER DO, AMANDEEP Pineda Ot Z87.891 PERSONAL HISTORY OF NICOTINE DEPENDENCE 09/26/2017 GELLENDER DO, AMANDEEP Pineda Ot Z99.81 DEPENDENCE ON SUPPLEMENTAL OXYGEN 09/26/2017 GELLENDER DO, AMANDEEP Pineda Ot C34.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 09/26/2017 GELLENDER DO, AMANDEEP Pineda Ot C79.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 09/26/2017 GELLENDER DO, AMANDEEP Pineda Ot E78.00 PURE HYPERCHOLESTEROLEMIA, UNSPECIFIED 09/26/2017 GELLENDER DO, AMANDEEP Pineda Ot G14 POSTPOLIO SYNDROME 09/26/2017 GELLENDER DO, AMANDEEP Pineda Ot G40.909 EPILEPSY, UNSP, NOT INTRACTABLE, WITHOUT 09/26/2017 GELLENDER DO, AMANDEEP Pineda Ot G47.30 SLEEP APNEA, UNSPECIFIED 09/26/2017 GELLENDER DO, AMANDEEP Pineda Ot I10 ESSENTIAL (PRIMARY) HYPERTENSION 09/26/2017 GELLENDER DO, AMANDEEP Pineda Ot J18.9 PNEUMONIA, UNSPECIFIED ORGANISM 09/26/2017 GELLENDER DO, AMANDEEP Pineda Ot J30.2 OTHER SEASONAL ALLERGIC RHINITIS 09/26/2017 GELLENDER DO, AMANDEEP Pineda Ot J43.9 EMPHYSEMA, UNSPECIFIED 09/26/2017 GELLENDER DO, AMANDEEP Pineda Ot M19.91 PRIMARY OSTEOARTHRITIS, UNSPECIFIED SITE 09/26/2017 GELLENDER DO, AMANDEEP Pineda Ot Z79.899 OTHER [facility] (CURRENT) DRUG THERAPY 09/26/2017 GELLENDER DO, AMANDEEP Pineda Ot Z87.891 PERSONAL HISTORY OF NICOTINE DEPENDENCE 09/26/2017 GELLENDER DO, AMANDEEP Pineda Ot Z99.81 DEPENDENCE ON SUPPLEMENTAL OXYGEN 09/27/2017 GELLENDER DO, AMANDEEP Pineda Ot C34.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 09/27/2017 GELLENDER DO, AMANDEEP Pineda Ot C79.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 09/27/2017 GELLENDER DO, AMANDEEP Pineda Ot E78.00 PURE HYPERCHOLESTEROLEMIA, UNSPECIFIED 09/27/2017 GELLENDER DO, AMANDEEP Pineda Ot G14 POSTPOLIO SYNDROME 09/27/2017 GELLENDER DO, AMANDEEP Pineda Ot G40.909 EPILEPSY, UNSP, NOT INTRACTABLE, WITHOUT 09/27/2017 GELLENDER DO, AMANDEEP Pineda Ot G47.30 SLEEP APNEA, UNSPECIFIED 09/27/2017 GELLENDER DO, AMANDEEP Pineda Ot I10 ESSENTIAL (PRIMARY) HYPERTENSION 09/27/2017 GELLENDER DO, AMANDEEP Pineda Ot J18.9 PNEUMONIA, UNSPECIFIED ORGANISM 09/27/2017 GELLENDER DO, AMANDEEP Pineda Ot J30.2 OTHER SEASONAL ALLERGIC RHINITIS 09/27/2017 GELLENDER DO, AMANDEEP Pineda Ot J43.9 EMPHYSEMA, UNSPECIFIED 09/27/2017 GELLENDER DO, AMANDEEP Pineda Ot M19.91 PRIMARY OSTEOARTHRITIS, UNSPECIFIED SITE 09/27/2017 GELLENDER DO, AMANDEEP Pineda Ot Z79.899 OTHER [facility] (CURRENT) DRUG THERAPY 09/27/2017 GELLENDER DO, AMANDEEP Pineda Ot Z87.891 PERSONAL HISTORY OF NICOTINE DEPENDENCE 09/27/2017 GELLENDER DO, AMANDEEP Pineda Ot Z99.81 DEPENDENCE ON SUPPLEMENTAL OXYGEN 09/28/2017 GELLENDER DO, AMANDEEP Pineda Ot C34.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 09/28/2017 GELLENDER DO, AMANDEEP Pineda Ot C79.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 09/28/2017 GELLENDER DO, AMANDEEP Pineda Ot E78.00 PURE HYPERCHOLESTEROLEMIA, UNSPECIFIED 09/28/2017 GELLENDER DO, AMANDEEP Pineda Ot G14 POSTPOLIO SYNDROME 09/28/2017 GELLENDER DO, AMANDEEP Pineda Ot G40.909 EPILEPSY, UNSP, NOT INTRACTABLE, WITHOUT 09/28/2017 GELLENDER DO, AMANDEEP Pineda Ot G47.30 SLEEP APNEA, UNSPECIFIED 09/28/2017 GELLENDER DO, AMANDEEP Pineda Ot I10 ESSENTIAL (PRIMARY) HYPERTENSION 09/28/2017 GELLENDER DO, AMANDEEP Pineda Ot J18.9 PNEUMONIA, UNSPECIFIED ORGANISM 09/28/2017 GELLENDER DO, AMANDEEP Pineda Ot J30.2 OTHER SEASONAL ALLERGIC RHINITIS 09/28/2017 GELLENDER DO, AMANDEEP Pineda Ot J43.9 EMPHYSEMA, UNSPECIFIED 09/28/2017 GELLENDER DO, AMANDEEP Pineda Ot M19.91 PRIMARY OSTEOARTHRITIS, UNSPECIFIED SITE 09/28/2017 GELLENDER DO, AMANDEEP Pineda Ot Z79.899 OTHER [facility] (CURRENT) DRUG THERAPY 09/28/2017 GELLENDER DO, AMANDEEP Pineda Ot Z87.891 PERSONAL HISTORY OF NICOTINE DEPENDENCE 09/28/2017 GELLENDER DO, AMANDEEP Pineda Ot Z99.81 DEPENDENCE ON SUPPLEMENTAL OXYGEN 09/28/2017 GELLENDER DO, AMANDEEP Pineda Ot C34.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 09/28/2017 GELLENDER DO, AMANDEEP Pineda Ot C79.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 09/28/2017 GELLENDER DO, AMANDEEP Pineda Ot E78.00 PURE HYPERCHOLESTEROLEMIA, UNSPECIFIED 09/28/2017 GELLENDER DO, AMANDEEP Pineda Ot G14 POSTPOLIO SYNDROME 09/28/2017 GELLENDER DO, AMANDEEP Pineda Ot G40.409 OTH GENERALIZED EPILEPSY, NOT INTRACTABL 09/28/2017 GELLENDER DO, AMANDEEP Pineda Ot G47.30 SLEEP APNEA, UNSPECIFIED 09/28/2017 GELLENDER DO, AMANDEEP Pineda Ot I10 ESSENTIAL (PRIMARY) HYPERTENSION 09/28/2017 GELLENDER DO, AMANDEEP Pineda Ot J18.9 PNEUMONIA, UNSPECIFIED ORGANISM 09/28/2017 GELLENDER DO, AMANDEEP Pineda Ot J30.2 OTHER SEASONAL ALLERGIC RHINITIS 09/28/2017 GELLENDER DO, AMANDEEP Pineda Ot J43.9 EMPHYSEMA, UNSPECIFIED 09/28/2017 GELLENDER DO, AMANDEEP Pineda Ot M19.91 PRIMARY OSTEOARTHRITIS, UNSPECIFIED SITE 09/28/2017 GELLENDER DO, AMANDEEP Pineda Ot Z59.5 EXTREME POVERTY 09/28/2017 GELLENDER DO, AMANDEEP Pineda Ot Z79.899 [facility] (CURRENT) DRUG THERAPY 09/28/2017 GELLENDER DO, AMANDEEP Pineda Ot Z87.891 PERSONAL HISTORY OF NICOTINE DEPENDENCE 09/28/2017 GELLENDER DO, AMANDEEP Pineda Ot Z99.81 DEPENDENCE ON SUPPLEMENTAL OXYGEN 10/01/2017 STEPHEN PRICE Ot C34.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, LEFT B 10/01/2017 STEPHEN PRICE Ot C79.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 10/01/2017 STEPHEN PRICE Ot E78.5 HYPERLIPIDEMIA, UNSPECIFIED 10/01/2017 DEE, BOBAN N Ot G40.909 EPILEPSY, UNSP, NOT INTRACTABLE, WITHOUT 10/01/2017 DEE, BOBAN N Ot J43.9 EMPHYSEMA, UNSPECIFIED 10/01/2017 DEE, BOBAN N Ot M89.9 DISORDER OF BONE, UNSPECIFIED 10/01/2017 DEE BOBAN N Ot R91.1 SOLITARY PULMONARY NODULE 10/01/2017 DEE, BOBAN N Ot Z51.11 ENCOUNTER FOR ANTINEOPLASTIC CHEMOTHERAP 10/01/2017 DEE, BOBAN N Ot Z79.899 OTHER [facility] (CURRENT) DRUG THERAPY 10/01/2017 DEE, BOBAN N Ot Z87.891 PERSONAL HISTORY OF NICOTINE DEPENDENCE 10/02/2017 DEE, BOBAN N Ot C34.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, LEFT B 10/02/2017 DEE, BOBAN N Ot C79.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 10/02/2017 DEE, BOBAN N Ot E78.5 HYPERLIPIDEMIA, UNSPECIFIED 10/02/2017 DEE, BOBAN N Ot G40.909 EPILEPSY, UNSP, NOT INTRACTABLE, WITHOUT 10/02/2017 DEE, BOBAN N Ot J43.9 EMPHYSEMA, UNSPECIFIED 10/02/2017 DEE, BOBAN N Ot M89.9 DISORDER OF BONE, UNSPECIFIED 10/02/2017 DEE, BOBAN N Ot Z51.11 ENCOUNTER FOR ANTINEOPLASTIC CHEMOTHERAP 10/02/2017 DEE, BOBAN N Ot Z79.899 [facility] (CURRENT) DRUG THERAPY 10/02/2017 DEE, BOBAN N Ot Z87.891 PERSONAL HISTORY OF NICOTINE DEPENDENCE 10/07/2017 DEE, BOBAN N Ot C34.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, LEFT B 10/07/2017 DEE, BOBAN N Ot C79.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 10/07/2017 DEE, BOBAN N Ot E78.5 HYPERLIPIDEMIA, UNSPECIFIED 10/07/2017 DEE, BOBAN N Ot G40.909 EPILEPSY, UNSP, NOT INTRACTABLE, WITHOUT 10/07/2017 DEE, BOBAN N Ot J43.9 EMPHYSEMA, UNSPECIFIED 10/07/2017 DEE, BOBAN N Ot M89.9 DISORDER OF BONE, UNSPECIFIED 10/07/2017 DEE, BOBAN N Ot Z51.11 ENCOUNTER FOR ANTINEOPLASTIC CHEMOTHERAP 10/07/2017 DEE, SABASAN N Ot Z79.899 OTHER [facility] (CURRENT) DRUG THERAPY 10/07/2017 DEE STEPHEN N Ot Z87.891 PERSONAL HISTORY OF NICOTINE DEPENDENCE 10/08/2017 BROOKENUNUBRAYAN AMANDEEP LASSITER Ot B35.1 TINEA UNGUIUM 10/10/2017 DEESTEPHEN N Ot E78.5 HYPERLIPIDEMIA, UNSPECIFIED 10/10/2017 DEE, BOBBAHMAN N Ot G40.909 EPILEPSY, UNSP, NOT INTRACTABLE, WITHOUT 10/10/2017 DEE, STEPHEN N Ot J43.9 EMPHYSEMA, UNSPECIFIED 10/10/2017 DEESTEPHEN N Ot M89.9 DISORDER OF BONE, UNSPECIFIED 10/10/2017 DEESTEPHEN N Ot R91.1 SOLITARY PULMONARY NODULE 10/10/2017 DEESTEPHEN N Ot Z79.899 [facility] (CURRENT) DRUG THERAPY 10/10/2017 DEESTEPHEN N Ot Z87.891 PERSONAL HISTORY OF NICOTINE DEPENDENCE 10/13/2017 DEE BOBBAHMAN N Ot C34.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, LEFT B 10/13/2017 DEE BOBBAHMAN N Ot C79.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 10/13/2017 DEESTEPHEN N Ot E78.5 HYPERLIPIDEMIA, UNSPECIFIED 10/13/2017 DEE, BOBAN N Ot G40.909 EPILEPSY, UNSP, NOT INTRACTABLE, WITHOUT 10/13/2017 DEE, BOBAN N Ot J43.9 EMPHYSEMA, UNSPECIFIED 10/13/2017 DEESTEPHEN N Ot Z51.11 ENCOUNTER FOR ANTINEOPLASTIC CHEMOTHERAP 10/13/2017 DEESABASAN N Ot Z79.899 [facility] (CURRENT) DRUG THERAPY 10/13/2017 DEESABASAN N Ot Z87.891 PERSONAL HISTORY OF NICOTINE DEPENDENCE 10/22/2017 AMANDEEP GENAO DO Ot B35.1 TINEA UNGUIUM 11/17/2017 ELLISON DO, JAMIR Ot 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 11/17/2017 ELLISON DO, JAMIR Ot C79.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 11/17/2017 ELLISON DO, JAMIR Ot D64.9 ANEMIA, UNSPECIFIED 11/17/2017 SCOT LASSITER JAMIR Ot D70.1 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 11/17/2017 SCOT LASSITER JAMIR Ot E78.00 PURE HYPERCHOLESTEROLEMIA, UNSPECIFIED 11/17/2017 SCOT LASSITER JAMIR Ot E87.1 HYPO-OSMOLALITY AND HYPONATREMIA 11/17/2017 SCOT LASSITER JAMIR Ot E87.5 HYPERKALEMIA 11/17/2017 SCOT LASSITER JAMIR Ot G14 POSTPOLIO SYNDROME 11/17/2017 SCOT LASSITER JAMIR Ot G40.90 9 EPILEPSY, UNSP, NOT INTRACTABLE, WITHOUT 11/17/2017 ELLISON DO JAMIR Ot G47.30 SLEEP APNEA, UNSPECIFIED 11/17/2017 SCOT LASSITER JAMIR Ot G89.29 OTHER CHRONIC PAIN 11/17/2017 SCOT LASSITER JAMIR Ot I10 ESSENTIAL (PRIMARY) HYPERTENSION 11/17/2017 SCOT LASSITER JAMIR Ot I95.1 ORTHOSTATIC HYPOTENSION 11/17/2017 SCOT LASSITER JAMIR Ot J18.9 PNEUMONIA, UNSPECIFIED ORGANISM 11/17/2017 SCOT LASSITER JAMIR Ot J30.2 OTHER SEASONAL ALLERGIC RHINITIS 11/17/2017 SCOT LASSITER JAMIR Ot J43.9 EMPHYSEMA, UNSPECIFIED 11/17/2017 SCOT LASSITER JAMIR Ot J96.10 CHRONIC RESPIRATORY FAILURE, UNSP W HYPO 11/17/2017 SCOT LASSITER JAMIR Ot K21.9 GASTRO-ESOPHAGEAL REFLUX DISEASE WITHOUT 11/17/2017 SCOT LASSITER JAMIR Ot M19.91 PRIMARY OSTEOARTHRITIS, UNSPECIFIED SITE 11/17/2017 SCOT LASSITER JAMIR Ot R42 DIZZINESS AND GIDDINESS 11/17/2017 SCOT LASSITER JAMIR Ot T45.1X 5A ADVERSE EFFECT OF ANTINEOPLASTIC AND IMM 11/17/2017 SCOT LASSITER JAMIR Ot Z79.89 9 OTHER [facility] (CURRENT) DRUG THERAPY 11/17/2017 SCOT LASSITER JAMIR Ot Z87.89 1 PERSONAL HISTORY OF NICOTINE DEPENDENCE 12/06/2017 AMANDEEP GENAO DO Ot C34.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, LEFT B 12/06/2017 AMANDEEP GENAO DO Ot C79.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 12/06/2017 AMANDEEP GENAO DO Ot D70.2 OTHER DRUG-INDUCED AGRANULOCYTOSIS 12/06/2017 GELLENDER DO, AMANDEEP Pineda Ot G40.909 EPILEPSY, UNSP, NOT INTRACTABLE, WITHOUT 12/06/2017 GELLENDER DOAMANDEEP Ot G47.30 SLEEP APNEA, UNSPECIFIED 12/06/2017 GELLENDER AMANDEEP LASSITER Ot J43.9 EMPHYSEMA, UNSPECIFIED 12/06/2017 GELLENDER DO, AMANDEEP Pineda Ot J96.21 ACUTE AND CHRONIC RESPIRATORY FAILURE [place] 12/06/2017 GELLENDER DOAMANDEEP Ot T45.1X5A ADVERSE EFFECT OF ANTINEOPLASTIC AND IMM 12/08/2017 BROOKELENDER DOAMANDEEP Ot G40.909 EPILEPSY, UNSP, NOT INTRACTABLE, WITHOUT 12/08/2017 GELLENDER DOAMANDEEP Ot J44.9 CHRONIC OBSTRUCTIVE PULMONARY DISEASE, U 12/10/2017 KURT MOHR MD Ot Z01.818 ENCOUNTER FOR OTHER PREPROCEDURAL EXAMIN 12/11/2017 KURT MOHR MD Ot Z01.818 ENCOUNTER FOR OTHER PREPROCEDURAL EXAMIN 12/12/2017 KURT MOHR MD Ot C34.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 12/12/2017 KURT MOHR MD Ot H25.12 AGE-RELATED NUCLEAR CATARACT, LEFT EYE 12/12/2017 KURT MOHR MD Ot I10 ESSENTIAL (PRIMARY) HYPERTENSION 12/12/2017 KURT MOHR MD Ot Z79.52 [facility] (CURRENT) USE OF SYSTEMIC STER 12/12/2017 KUTR MOHR MD Ot Z79.899 [facility] (CURRENT) DRUG THERAPY 12/12/2017 KURT MOHR MD Ot Z87.891 PERSONAL HISTORY OF NICOTINE DEPENDENCE 12/16/2017 KURT MOHR MD Ot C34.90 [facility]IGNANT [facility] 12/16/2017 KURT MOHR MD Ot H25.12 AGE-RELATED NUCLEAR CATARACT, LEFT EYE 12/16/2017 KURT MOHR MD Ot I10 ESSENTIAL (PRIMARY) HYPERTENSION 12/16/2017 KURT MOHR MD Ot Z79.52 [facility] (CURRENT) USE OF SYSTEMIC STER 12/16/2017 KURT MOHR MD Ot Z79.899 [facility] (CURRENT) DRUG THERAPY 12/16/2017 ONUR RIOS, KURT Newton Ot Z87.891 PERSONAL HISTORY OF NICOTINE DEPENDENCE 12/22/2017 DEESTEPHEN PATRICIO N Ot C34.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, LEFT B 12/22/2017 STEPHEN PRICE N Ot C79.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 12/22/2017 STEPHEN PRICE N Ot E78.5 HYPERLIPIDEMIA, UNSPECIFIED 12/22/2017 STEPHEN PRICE N Ot G40.909 EPILEPSY, UNSP, NOT INTRACTABLE, WITHOUT 12/22/2017 STEPHEN PRICE N Ot J43.9 EMPHYSEMA, UNSPECIFIED 12/22/2017 STEPHEN PRICE N Ot Z51.11 ENCOUNTER FOR ANTINEOPLASTIC CHEMOTHERAP 12/22/2017 STEPHEN PRICE N Ot Z79.899 OTHER [facility] (CURRENT) DRUG THERAPY 12/22/2017 STEPHEN PRICE N Ot Z87.891 PERSONAL HISTORY OF NICOTINE DEPENDENCE 12/22/2017 KURT MOHR MD Ot Z01.818 ENCOUNTER FOR OTHER PREPROCEDURAL EXAMIN 12/23/2017 KURT MOHR MD Ot Z01.818 ENCOUNTER FOR OTHER PREPROCEDURAL EXAMIN 12/24/2017 KURT MOHR MD Ot 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 12/24/2017 KURT MOHR MD Ot E78.00 PURE HYPERCHOLESTEROLEMIA, UNSPECIFIED 12/24/2017 KURT MOHR MD Ot E78 .5 HYPERLIPIDEMIA, UNSPECIFIED 12/24/2017 KURT MOHR MD Ot G40.909 EPILEPSY, UNSP, NOT INTRACTABLE, WITHOUT 12/24/2017 KURT MOHR MD Ot H26 .9 UNSPECIFIED CATARACT 12/24/2017 KURT MOHR MD Ot I10 ESSENTIAL (PRIMARY) HYPERTENSION 12/24/2017 KURT MOHR MD Ot J45.909 UNSPECIFIED ASTHMA, UNCOMPLICATED 12/24/2017 KURT MOHR MD Ot Z79.899 OTHER [facility] (CURRENT) DRUG THERAPY 12/25/2017 KURT MOHR MD Ot 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 12/25/2017 ANLIKER MD, KURT L Ot E78.00 PURE HYPERCHOLESTEROLEMIA, UNSPECIFIED 12/25/2017 ONUR RIOS, KURT Newton Ot E78 .5 HYPERLIPIDEMIA, UNSPECIFIED 12/25/2017 KURT MOHR MD Ot G40.909 EPILEPSY, UNSP, NOT INTRACTABLE, WITHOUT 12/25/2017 ONUR RIOS, KURT L Ot H26 .9 UNSPECIFIED CATARACT 12/25/2017 KURT MOHR MD Ot I10 ESSENTIAL (PRIMARY) HYPERTENSION 12/25/2017 KURT MOHR MD Ot J45.909 UNSPECIFIED ASTHMA, UNCOMPLICATED 12/25/2017 ONUR RIOS, KURT Newton Ot Z79.899 [facility] (CURRENT) DRUG THERAPY 12/25/2017 KURT MOHR MD Ot 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 12/25/2017 KURT MOHR MD Ot E78.00 PURE HYPERCHOLESTEROLEMIA, UNSPECIFIED 12/25/2017 KURT MOHR MD Ot E78 .5 HYPERLIPIDEMIA, UNSPECIFIED 12/25/2017 KURT MOHR MD Ot G40.909 EPILEPSY, UNSP, NOT INTRACTABLE, WITHOUT 12/25/2017 KURT MOHR MD Ot H26 .9 UNSPECIFIED CATARACT 12/25/2017 KURT MOHR MD Ot I10 ESSENTIAL (PRIMARY) HYPERTENSION 12/25/2017 KURT MOHR MD Ot J45.909 UNSPECIFIED ASTHMA, UNCOMPLICATED 12/25/2017 ONUR RIOS, KURT Newton Ot Z79.899 [facility] (CURRENT) DRUG THERAPY 12/30/2017 KURT MOHR MD Ot 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 12/30/2017 KURT MOHR MD Ot E78.00 PURE HYPERCHOLESTEROLEMIA, UNSPECIFIED 12/30/2017 KURT MOHR MD Ot E78 .5 HYPERLIPIDEMIA, UNSPECIFIED 12/30/2017 KURT MOHR MD Ot G40.909 EPILEPSY, UNSP, NOT INTRACTABLE, WITHOUT 12/30/2017 KURT MOHR MD L Ot H26 .9 UNSPECIFIED CATARACT 12/30/2017 KURT MOHR MD Ot I10 ESSENTIAL (PRIMARY) HYPERTENSION 12/30/2017 KURT MOHR MD Ot J45.909 UNSPECIFIED ASTHMA, UNCOMPLICATED 12/30/2017 ONUR RIOS, KURT L Ot Z79.899 [facility] (CURRENT) DRUG THERAPY 12/31/2017 DEESTEPHEN PATRICIO N Ot C34.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, LEFT B 12/31/2017 DEESTEPHEN PATRICIO N Ot C79.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 12/31/2017 DEE BOBBAHMAN N Ot E78.5 HYPERLIPIDEMIA, UNSPECIFIED 12/31/2017 DEE, BOBAN N Ot G40.909 EPILEPSY, UNSP, NOT INTRACTABLE, WITHOUT 12/31/2017 DEE, BOBAN N Ot J43.9 EMPHYSEMA, UNSPECIFIED 12/31/2017 DEE, BOBAN N Ot Z51.11 ENCOUNTER FOR ANTINEOPLASTIC CHEMOTHERAP 12/31/2017 DEESTEPHEN PATRICIO N Ot Z79.899 [facility] (CURRENT) DRUG THERAPY 12/31/2017 DEE BOBAN N Ot Z87.891 PERSONAL HISTORY OF NICOTINE DEPENDENCE 01/08/2018 DEE BOBBAHMAN N Ot C34.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, LEFT B 01/08/2018 DEE BOBBAHMAN N Ot C79.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 01/08/2018 DEE BOBBAHMAN N Ot E78.5 HYPERLIPIDEMIA, UNSPECIFIED 01/08/2018 DEE, BOBAN N Ot G40.909 EPILEPSY, UNSP, NOT INTRACTABLE, WITHOUT 01/08/2018 DEE, BOBAN N Ot J43.9 EMPHYSEMA, UNSPECIFIED 01/08/2018 DEE, BOBAN N Ot Z79.899 OTHER [facility] (CURRENT) DRUG THERAPY 01/08/2018 DEE BOBAN N Ot Z87.891 PERSONAL HISTORY OF NICOTINE DEPENDENCE 01/09/2018 SIVA RESENDIZ WIDE AREA NETWORK 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 Ot C34.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, LEFT B 01/22/2018 SIVA RESENDIZ WIDE AREA NETWORK 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 Ot C34.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, LEFT B 01/28/2018 GELLENDER DO, AMANDEEP Pineda Ot C34.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 01/28/2018 GELLENDER DOAMANDEEP Ot C79.9 SECONDARY MALIGNANT NEOPLASM OF UNSPECIF 01/28/2018 GELLENDER DOAMANDEEP Ot E78.00 PURE HYPERCHOLESTEROLEMIA, UNSPECIFIED 01/28/2018 GELLENDER DO, AMANDEEP Pineda Ot E87.1 HYPO-OSMOLALITY AND HYPONATREMIA 01/28/2018 GELLENDER DO, AMANDEEP Pineda Ot G14 POSTPOLIO SYNDROME 01/28/2018 GELLENDER DO, AMANDEEP Pineda Ot G40.909 EPILEPSY, UNSP, NOT INTRACTABLE, WITHOUT 01/28/2018 GELLENDER DO, AMANDEEP Pineda Ot G47.30 SLEEP APNEA, UNSPECIFIED 01/28/2018 GELLENDER DO, AMANDEEP Pineda Ot I10 ESSENTIAL (PRIMARY) HYPERTENSION 01/28/2018 GELLENDER DO, AMANDEEP Pineda Ot J18.1 LOBAR PNEUMONIA, UNSPECIFIED ORGANISM 01/28/2018 GELLENDER DO, AMANDEEP Pineda Ot J30.2 OTHER SEASONAL ALLERGIC RHINITIS 01/28/2018 GELLENDER , AMANDEEP Pineda Ot J44.9 CHRONIC OBSTRUCTIVE PULMONARY DISEASE, U 01/28/2018 GELLENDER , AMANDEEP Pineda Ot M19.91 PRIMARY OSTEOARTHRITIS, UNSPECIFIED SITE 01/28/2018 GELLENDER DO, AMANDEEP Pineda Ot R11.2 NAUSEA WITH VOMITING, UNSPECIFIED 01/28/2018 GELLENDER DO, AMANDEEP Pineda Ot R29.6 REPEATED FALLS 01/28/2018 GELLENDER DO, AMANDEEP Pineda Ot R53.1 WEAKNESS 01/28/2018 GELLENDER DO, AMANDEEP Pineda Ot Z87.891 PERSONAL HISTORY OF NICOTINE DEPENDENCE 01/28/2018DER , AMANDEEP Pineda Ot Z92.21 PERSONAL HISTORY OF ANTINEOPLASTIC CHEMO 01/28/2018DER , AMANDEEP Pineda Ot C34.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 01/28/2018 GELLENDER DO, AMANDEEP Pineda Ot C79.9 SECONDARY MALIGNANT NEOPLASM OF UNSPECIF 01/28/2018 GELLENDER DO, AMANDEEP Pineda Ot E78.00 PURE HYPERCHOLESTEROLEMIA, UNSPECIFIED 01/28/2018 GELLENDER DO, AMANDEEP Pineda Ot E87.1 HYPO-OSMOLALITY AND HYPONATREMIA 01/28/2018 GELLENDER DO, AMANDEEP Pineda Ot G14 POSTPOLIO SYNDROME 01/28/2018 GELLENDER DO, AMANDEEP Pineda Ot G40.909 EPILEPSY, UNSP, NOT INTRACTABLE, WITHOUT 01/28/2018 GELLENDER DO, AMANDEEP Pineda Ot G47.30 SLEEP APNEA, UNSPECIFIED 01/28/2018 GELLENDER DO, AMANDEEP Pineda Ot I10 ESSENTIAL (PRIMARY) HYPERTENSION 01/28/2018 GELLENDER DO, AMANDEEP Pineda Ot J18.1 LOBAR PNEUMONIA, UNSPECIFIED ORGANISM 01/28/2018 CHADWICK LASSITERAMANDEEP Ot J30.2 OTHER SEASONAL ALLERGIC RHINITIS 01/28/2018 CHADWICK LASSITER, AMANDEEP Pineda Ot J44.9 CHRONIC OBSTRUCTIVE PULMONARY DISEASE, U 01/28/2018 CHADWICK LASSITERAMANDEEP Ot M19.91 PRIMARY OSTEOARTHRITIS, UNSPECIFIED SITE 01/28/2018 CHADWICK LASSITERAMANDEEP Ot R11.2 NAUSEA WITH VOMITING, UNSPECIFIED 01/28/2018 CHADWICK LASSITERAMANDEEP Ot R29.6 REPEATED FALLS 01/28/2018 CHADWICK LASSITERAMANDEEP Ot R53.1 WEAKNESS 01/28/2018 CHADWICK LASSITERAMANDEEP Ot Z87.891 PERSONAL HISTORY OF NICOTINE DEPENDENCE 01/28/2018 CHADWICK LASSITERAMANDEEP Ot Z92.21 PERSONAL HISTORY OF ANTINEOPLASTIC CHEMO 01/29/2018 STEPHEN PRICE Ot C34.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, LEFT B 01/29/2018 STEPHEN PRICE Ot C79.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 01/29/2018 STEPHEN PRICE Ot E78.5 HYPERLIPIDEMIA, UNSPECIFIED 01/29/2018 STEPHEN PRICE Ot G40.909 EPILEPSY, UNSP, NOT INTRACTABLE, WITHOUT 01/29/2018 STEPHEN PRICE Ot J43.9 EMPHYSEMA, UNSPECIFIED 01/29/2018 STEPHEN PRICE Ot Z79.899 OTHER RECRUITMENT INTERNSHIP (CURRENT) DRUG THERAPY 01/29/2018 STEPHEN PRICE Ot Z87.891 PERSONAL HISTORY OF NICOTINE DEPENDENCE 01/30/2018 CHADWICK LASSITERAMANDEEP Ot C34.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 01/30/2018 BROOKELENDER AMANDEEP Ot C79.9 SECONDARY MALIGNANT NEOPLASM OF UNSPECIF 01/30/2018 CHADWICK LASSITERAMANDEEP Ot E78.00 PURE HYPERCHOLESTEROLEMIA, UNSPECIFIED 01/30/2018 BROOKELENDER AMANDEEP Ot E87.1 HYPO-OSMOLALITY AND HYPONATREMIA 01/30/2018 BROOKELENDER AMANDEEP Ot G14 POSTPOLIO SYNDROME 01/30/2018 BROOKELENDER AMANDEEP Ot G40.909 EPILEPSY, UNSP, NOT INTRACTABLE, WITHOUT 01/30/2018 GELLENDER DOAMANDEEP Ot G47.30 SLEEP APNEA, UNSPECIFIED 01/30/2018 GELLENDER DO, AMANDEEP Pineda Ot I10 ESSENTIAL (PRIMARY) HYPERTENSION 01/30/2018 GELLENDER DO, AMANDEEP Pineda Ot J18.1 LOBAR PNEUMONIA, UNSPECIFIED ORGANISM 01/30/2018 GELLENDER DO, AMANDEEP Pineda Ot J30.2 OTHER SEASONAL ALLERGIC RHINITIS 01/30/2018 GELLENDER DO, AMANDEEP Pineda Ot J44.9 CHRONIC OBSTRUCTIVE PULMONARY DISEASE, U 01/30/2018 GELLENDER DO, AMANDEEP Pineda Ot M19.91 PRIMARY OSTEOARTHRITIS, UNSPECIFIED SITE 01/30/2018 GELLENDER DO, AMANDEEP Pineda Ot R11.2 NAUSEA WITH VOMITING, UNSPECIFIED 01/30/2018 GELLENDER DO, AMANDEEP Pineda Ot R29.6 REPEATED FALLS 01/30/2018 GELLENDER DO, AMANDEEP Pineda Ot R53.1 WEAKNESS 01/30/2018 GELLENDER DO, AMANDEEP Pineda Ot Z87.891 PERSONAL HISTORY OF NICOTINE DEPENDENCE 01/30/2018 GELLENDER DO, AMANDEEP Pineda Ot Z92.21 PERSONAL HISTORY OF ANTINEOPLASTIC CHEMO 02/03/2018 GELLENDER DO, AMANDEEP Pineda Ot C34.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 02/03/2018 GELLENDER DO, AMANDEEP Pineda Ot C79.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 02/03/2018 GELLENDER DO, AMANDEEP Pineda Ot C79.9 SECONDARY MALIGNANT NEOPLASM OF UNSPECIF 02/03/2018 GELLENDER DO, AMANDEEP Pineda Ot D64.9 ANEMIA, UNSPECIFIED 02/03/2018 GELLENDER DO, AMANDEEP Pineda Ot E78.00 PURE HYPERCHOLESTEROLEMIA, UNSPECIFIED 02/03/2018 GELLENDER DO, AMANDEEP Pineda Ot E83.42 HYPOMAGNESEMIA 02/03/2018 GELLENDER DO, AMANDEEP Pineda Ot E87.1 HYPO-OSMOLALITY AND HYPONATREMIA 02/03/2018 GELLENDER DO, AMANDEEP Pineda Ot G14 POSTPOLIO SYNDROME 02/03/2018 GELLENDER DO, AMANDEEP Pineda Ot G40.909 EPILEPSY, UNSP, NOT INTRACTABLE, WITHOUT 02/03/2018 GELLENDER DO, AMANDEEP Pineda Ot G47.30 SLEEP APNEA, UNSPECIFIED 02/03/2018 GELLENDER DO, AMANDEEP Pineda Ot I10 ESSENTIAL (PRIMARY) HYPERTENSION 02/03/2018 GELLENDER DO, AMANDEEP Pineda Ot J18.1 LOBAR PNEUMONIA, UNSPECIFIED ORGANISM 02/03/2018 GELLENDER DO, AMANDEEP Pineda Ot J30.2 OTHER SEASONAL ALLERGIC RHINITIS 02/03/2018 CHADWICK LASSITER, AMANDEEP Pineda Ot J44.0 CHRONIC OBSTRUCTIVE PULMON DISEASE W ACU 02/03/2018 CHADWICK LASSITERAMANDEEP Ot J44.1 CHRONIC OBSTRUCTIVE PULMONARY DISEASE W 02/03/2018 CHADWICK LASSITERAMANDEEP Ot J44.9 CHRONIC OBSTRUCTIVE PULMONARY DISEASE, U 02/03/2018 CHADWICK LASSITERAMANDEEP Ot J96.20 ACUTE AND CHR RESP FAILURE, UNSP W HYPOX 02/03/2018 CHADWICK LASSITERAMANDEEP Ot M19.91 PRIMARY OSTEOARTHRITIS, UNSPECIFIED SITE 02/03/2018 CHADWICK LASSITERAMANDEEP Ot R11.2 NAUSEA WITH VOMITING, UNSPECIFIED 02/03/2018 CHADWICK LASSITERAMANDEEP Ot R29.6 REPEATED FALLS 02/03/2018 CHADWICK LASSITERAMANDEEP Ot R53.1 WEAKNESS 02/03/2018 CHADWICK LASSITERAMANDEEP Ot T21.21XA BURN OF SECOND DEGREE OF CHEST WALL, INI 02/03/2018 CHADWICK LASSITERAMANDEEP Ot Z87.891 PERSONAL HISTORY OF NICOTINE DEPENDENCE 02/03/2018 CHADWICK LASSITERAMANDEEP Ot Z92.21 PERSONAL HISTORY OF ANTINEOPLASTIC CHEMO 02/05/2018 CHADWICK LASSITERAMANDEEP Ot M43.12 SPONDYLOLISTHESIS, CERVICAL REGION 02/05/2018 CHADWICK LASSITERAMANDEEP Ot M47.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 02/05/2018 CHADWICK LASSITERAMANDEEP Ot S19.9XXA UNSPECIFIED INJURY OF NECK, INITIAL ENCO 02/17/2018 STEPHEN PRICE Ot C34.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, LEFT B 02/17/2018 STEPHEN PRICE Ot C79.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 02/17/2018 STEPHEN PRICE Ot E78.5 HYPERLIPIDEMIA, UNSPECIFIED 02/17/2018 STEPHEN PRICE Ot G40.909 EPILEPSY, UNSP, NOT INTRACTABLE, WITHOUT 02/17/2018 STEPHEN PRICE Ot J43.9 EMPHYSEMA, UNSPECIFIED 02/17/2018 STEPHEN PRICE Ot Z79.899 OTHER [facility] (CURRENT) DRUG THERAPY 02/17/2018 STEPHEN PRICE Ot Z87.891 PERSONAL HISTORY OF NICOTINE DEPENDENCE 03/12/2018 CHADWICK LASSITER, AMANDEEP Pineda Ot C34.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 03/12/2018 CHADWICK LASSITER, AMANDEEP Pineda Ot C79.9 SECONDARY MALIGNANT NEOPLASM OF UNSPECIF 03/12/2018 CHADWICK LASSITER, AMANDEEP Pineda Ot D64.9 ANEMIA, UNSPECIFIED 03/12/2018 CHADWICK DO, AMANDEEP Pineda Ot E78.5 HYPERLIPIDEMIA, UNSPECIFIED 03/12/2018 JOSEDER DO, AMANDEEP Pineda Ot E87.1 HYPO-OSMOLALITY AND HYPONATREMIA 03/12/2018 JOSEDER DO, AMANDEEP Pineda Ot G14 POSTPOLIO SYNDROME 03/12/2018 JOSEDER DO, AMANDEEP Pineda Ot G40.909 EPILEPSY, UNSP, NOT INTRACTABLE, WITHOUT 03/12/2018 GELLENDER DO, AMANDEEP Pineda Ot G47.30 SLEEP APNEA, UNSPECIFIED 03/12/2018 CHADWICK LASSITER, AMANDEEP Pineda Ot I10 ESSENTIAL (PRIMARY) HYPERTENSION 03/12/2018 CHADWICK LASSITER, AMANDEEP Pineda Ot J44.9 CHRONIC OBSTRUCTIVE PULMONARY DISEASE, U 03/12/2018 CHADWICK LASSITER, AMANDEEP Pineda Ot J45.909 UNSPECIFIED ASTHMA, UNCOMPLICATED 03/12/2018 CHADWICK DO, AMANDEEP Pineda Ot M48.02 SPINAL STENOSIS, CERVICAL REGION 03/12/2018 CHADWICK LASSITER, AMANDEEP Pineda Ot M50.31 OTHER CERVICAL DISC DEGENERATION, HIGH C 03/12/2018 CHADWICK LASSITER, AMANDEEP Pineda Ot M50.322 OTHER CERVICAL DISC DEGENERATION AT C5-C 03/12/2018 CHADWICK LASSITERAMANDEEP Ot M50.323 OTHER CERVICAL DISC DEGENERATION AT C6-C 03/12/2018 CHADWICK LASSITERAMANDEEP Ot M85.48 SOLITARY BONE CYST, OTHER SITE 03/12/2018 CHADWICK LASSITERAMANDEEP Ot R53.1 WEAKNESS 03/12/2018 CHADWICK LASSITERAMANDEEP Ot S12.14XA TYPE III TRAUM SPONDYLOLYSIS OF SECOND C 03/12/2018 CHADWICK LASSITER, AMANDEEP Pineda Ot W18.09XA STRIKING AGAINST OTH OBJECT W SUBSEQUENT 03/12/2018 CHADWICK LASSITER, AMANDEEP Pineda Ot Y92.[address] IN SINGLE-FAMILY (PRIVATE) HO 03/12/2018 CHADWICK LASSITER, AMANDEEP Pineda Ot Z87.891 PERSONAL HISTORY OF NICOTINE DEPENDENCE 03/12/2018 GELLENDER DO, AMANDEEP Pineda Ot Z99.81 DEPENDENCE ON SUPPLEMENTAL OXYGEN 03/18/2018 GELLENDER DO, AMANDEEP Pineda Ot D64.9 ANEMIA, UNSPECIFIED 03/18/2018 GELLENDER DO, AMANDEEP Pineda Ot E78.00 PURE HYPERCHOLESTEROLEMIA, UNSPECIFIED 03/18/2018 GELLENDER DO, AMANDEEP Pineda Ot E83.42 HYPOMAGNESEMIA 03/18/2018 GELLENDER DO, AMANDEEP Pineda Ot E87.1 HYPO-OSMOLALITY AND HYPONATREMIA 03/18/2018 GELLENDER DO, AMANDEEP Pineda Ot G14 POSTPOLIO SYNDROME 03/18/2018 GELLENDER DO, AMANDEEP Pineda Ot G40.909 EPILEPSY, UNSP, NOT INTRACTABLE, WITHOUT 03/18/2018 GELLENDER DO, AMANDEEP Pineda Ot G47.30 SLEEP APNEA, UNSPECIFIED 03/18/2018 GELLENDER DO, AMANDEEP Pineda Ot I10 ESSENTIAL (PRIMARY) HYPERTENSION 03/18/2018 GELLENDER DO, AMANDEEP Pineda Ot J44.9 CHRONIC OBSTRUCTIVE PULMONARY DISEASE, U 03/18/2018 BROOKELENDER DO, AMANDEEP Pineda Ot J45.909 UNSPECIFIED ASTHMA, UNCOMPLICATED 03/18/2018 GELLENDER DO, AMANDEEP Pineda Ot R11.2 NAUSEA WITH VOMITING, UNSPECIFIED 03/18/2018 GELLENDER DO, AMANDEEP Pineda Ot R42 DIZZINESS AND GIDDINESS 03/18/2018 GELLENDER DO, AMANDEEP Pineda Ot R53.1 WEAKNESS 03/18/2018 GELLENDER DO, AMANDEEP Miriam Ot S12.000D UNSP DISP FX OF FIRST CERVCAL VERT, SUBS 03/18/2018 GELLENDER DOAMANDEEP Ot S12.100D UNSP DISP FX OF 2ND CERVCAL VERT, SUBS F 03/18/2018 GELLENDER DO, AMANDEEP Pineda Ot Z79.899 [facility] ([facility]) DRUG THERAPY 03/18/2018 GELLENDER DO, AMANDEEP Pineda Ot Z87.891 PERSONAL HISTORY OF NICOTINE DEPENDENCE 03/19/2018 STEPHEN PRICE Ot C34.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, LEFT B 03/19/2018 STEPHEN PRICE Ot C79.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 03/19/2018 STEPHEN PRICE Ot E78.5 HYPERLIPIDEMIA, UNSPECIFIED 03/19/2018 STEPHEN PRICE Ot G40.909 EPILEPSY, UNSP, NOT INTRACTABLE, WITHOUT 03/19/2018 STEPHEN PRICE Ot J43.9 EMPHYSEMA, UNSPECIFIED 03/19/2018 DEESTEPHEN PATRICIO Flavio Ot Z79.899 OTHER [facility] (CURRENT) DRUG THERAPY 03/19/2018 DEESTEPHEN PATRICIO Flavio Ot Z87.891 PERSONAL HISTORY OF NICOTINE DEPENDENCE 03/26/2018 GELLENDER DO, AMANDEEP Pineda Ot C34.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 03/26/2018 GELLENDER DO, AMANDEEP Pineda Ot C79.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 03/26/2018 GELLENDER DO, AMANDEEP Pineda Ot D64.9 ANEMIA, UNSPECIFIED 03/26/2018 GELLENDER DO, AMANDEEP Pineda Ot E78.00 PURE HYPERCHOLESTEROLEMIA, UNSPECIFIED 03/26/2018 GELLENDER DO, AMANDEEP Pineda Ot G14 POSTPOLIO SYNDROME 03/26/2018 GELLENDER DO, AMANDEEP Pineda Ot G40.909 EPILEPSY, UNSP, NOT INTRACTABLE, WITHOUT 03/26/2018 GELLENDER DO, AMANDEEP Pineda Ot G47.30 SLEEP APNEA, UNSPECIFIED 03/26/2018 GELLENDER DO, AMANDEEP Pineda Ot I10 ESSENTIAL (PRIMARY) HYPERTENSION 03/26/2018 GELLENDER DO, AMANDEEP Pineda Ot J30.2 OTHER SEASONAL ALLERGIC RHINITIS 03/26/2018 GELLENDER DO, AMANDEEP Pineda Ot J43.9 EMPHYSEMA, UNSPECIFIED 03/26/2018 GELLENDER DO, AMANDEEP Pineda Ot M19.91 PRIMARY OSTEOARTHRITIS, UNSPECIFIED SITE 03/26/2018 GELLENDER DO, AMANDEEP Pineda Ot R47.81 SLURRED SPEECH 03/26/2018 GELLENDER DO, AMANDEEP Pineda Ot R53.1 WEAKNESS 03/26/2018 GELLENDER DO, AMANDEEP Pineda Ot S12.9XXD FRACTURE OF NECK, UNSPECIFIED, SUBSEQUEN 03/26/2018 GELLENDER DO, AMANDEEP Pineda Ot Z79.899 [facility] (CURRENT) DRUG THERAPY 03/26/2018 GELLENDER DO, AMANDEEP Pineda Ot Z87.01 PERSONAL HISTORY OF PNEUMONIA (RECURRENT 03/26/2018 GELLENDER DO, AMANDEEP Pineda Ot Z87.891 PERSONAL HISTORY OF NICOTINE DEPENDENCE 03/26/2018 GELLENDER DO, AMANDEEP Pineda Ot C34.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 03/26/2018 GELLENDER DO, AMANDEEP Pineda Ot C79.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 03/26/2018 GELLENDER DO, AMANDEEP Pineda Ot D64.9 ANEMIA, UNSPECIFIED 03/26/2018 GELLENDER DO, AMANDEEP Pineda Ot E78.00 PURE HYPERCHOLESTEROLEMIA, UNSPECIFIED 03/26/2018 GELLENDER DO, AMANDEEP Pineda Ot G14 POSTPOLIO SYNDROME 03/26/2018 GELLENDER DO, AMANDEEP Pineda Ot G40.909 EPILEPSY, UNSP, NOT INTRACTABLE, WITHOUT 03/26/2018 GELLENDER DO, AMANDEEP Pineda Ot G47.30 SLEEP APNEA, UNSPECIFIED 03/26/2018 GELLENDER DO, AMANDEEP Pineda Ot I10 ESSENTIAL (PRIMARY) HYPERTENSION 03/26/2018 GELLENDER DO, AMANDEEP Pineda Ot J30.2 OTHER SEASONAL ALLERGIC RHINITIS 03/26/2018 GELLENDER DO, AMANDEEP Pineda Ot J43.9 EMPHYSEMA, UNSPECIFIED 03/26/2018 GELLENDER DO, AMANDEEP Pineda Ot M19.91 PRIMARY OSTEOARTHRITIS, UNSPECIFIED SITE 03/26/2018 GELLENDER DO, AMANDEEP Pineda Ot R47.81 SLURRED SPEECH 03/26/2018 GELLENDER DO, AMANDEEP Pineda Ot R53.1 WEAKNESS 03/26/2018 GELLENDER DO, AMANDEEP Pineda Ot S12.9XXD FRACTURE OF NECK, UNSPECIFIED, SUBSEQUEN 03/26/2018 GELLENDER DO, AMANDEEP Pineda Ot Z79.899 [facility] (CURRENT) DRUG THERAPY 03/26/2018 GELLENDER DO, AMANDEEP Pineda Ot Z87.01 PERSONAL HISTORY OF PNEUMONIA (RECURRENT 03/26/2018 GELLENDER DO, AMANDEEP Pineda Ot Z87.891 PERSONAL HISTORY OF NICOTINE DEPENDENCE 03/31/2018 STEPHEN PRICE Ot C34.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, LEFT B 03/31/2018 STEPHEN PRICE Ot C79.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 03/31/2018 STEPHEN PRICE Ot E78.5 HYPERLIPIDEMIA, UNSPECIFIED 03/31/2018 STEPHEN PRICE Ot G40.909 EPILEPSY, UNSP, NOT INTRACTABLE, WITHOUT 03/31/2018 STEPHEN PRICE Ot J43.9 EMPHYSEMA, UNSPECIFIED 03/31/2018 STEPHEN PRICE Ot Z51.11 ENCOUNTER FOR ANTINEOPLASTIC CHEMOTHERAP 03/31/2018 STEPHEN PRICE Ot Z79.899 OTHER [facility] (CURRENT) DRUG THERAPY 03/31/2018 STEPHEN PRICE Ot Z87.891 PERSONAL HISTORY OF NICOTINE DEPENDENCE 04/01/2018 DEESTEPHEN N Ot C34.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, LEFT B 04/01/2018 DEE BOBAN N Ot C79.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 04/01/2018 DEE, BOBAN N Ot E78.5 HYPERLIPIDEMIA, UNSPECIFIED 04/01/2018 DEE BOBAN N Ot G40.909 EPILEPSY, UNSP, NOT INTRACTABLE, WITHOUT 04/01/2018 EDE, BOBAN N Ot J43.9 EMPHYSEMA, UNSPECIFIED 04/01/2018 DEE, BOBAN N Ot Z51.11 ENCOUNTER FOR ANTINEOPLASTIC CHEMOTHERAP 04/01/2018 DEE, BOBAN N Ot Z79.899 OTHER [facility] (CURRENT) DRUG THERAPY 04/01/2018 DEE BOBAN N Ot Z87.891 PERSONAL HISTORY OF NICOTINE DEPENDENCE 04/06/2018 DEE BOBAN N Ot C34.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, LEFT B 04/06/2018 DEE BOBAN N Ot C79.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 04/06/2018 DEE, BOBAN N Ot E78.5 HYPERLIPIDEMIA, UNSPECIFIED 04/06/2018 DEE, BOBAN N Ot G40.909 EPILEPSY, UNSP, NOT INTRACTABLE, WITHOUT 04/06/2018 DEE, BOBAN N Ot J43.9 EMPHYSEMA, UNSPECIFIED 04/06/2018 DEE, BOBAN N Ot Z51.11 ENCOUNTER FOR ANTINEOPLASTIC CHEMOTHERAP 04/06/2018 DEE BOBAN N Ot Z79.899 OTHER [facility] (CURRENT) DRUG THERAPY 04/06/2018 DEE BOBAN N Ot Z87.891 PERSONAL HISTORY OF NICOTINE DEPENDENCE 04/06/2018 DEE BOBAN N Ot C34.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, LEFT B 04/06/2018 DEE, BOBAN N Ot C79.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 04/06/2018 DEE, BOBAN N Ot E78.5 HYPERLIPIDEMIA, UNSPECIFIED 04/06/2018 DEE, BOBAN N Ot G40.909 EPILEPSY, UNSP, NOT INTRACTABLE, WITHOUT 04/06/2018 DEE, BOBAN N Ot J43.9 EMPHYSEMA, UNSPECIFIED 04/06/2018 DEE, BOBAN N Ot Z79.899 [facility] ([facility] DRUG THERAPY 04/06/2018 STEPHEN PRICE Ot Z87.891 PERSONAL HISTORY OF NICOTINE DEPENDENCE 04/06/2018 STEPHEN PRICE Ot C34.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, LEFT B 04/06/2018 STEPHEN PRICE Ot C79.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 04/06/2018 STEPHEN PRICE Ot E78.5 HYPERLIPIDEMIA, UNSPECIFIED 04/06/2018 STEPHEN PRICE Ot G40.909 EPILEPSY, UNSP, NOT INTRACTABLE, WITHOUT 04/06/2018 STEPHEN PRICE Ot J43.9 EMPHYSEMA, UNSPECIFIED 04/06/2018 STEPHEN PRICE Ot Z79.899 OTHER [facility] (CURRENT) DRUG THERAPY 04/06/2018 STEPHEN PRICE Ot Z87.891 PERSONAL HISTORY OF NICOTINE DEPENDENCE 04/21/2018 GELLENDER DO, AMANDEEP Pineda Ot C34.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 04/21/2018 GELLENDER DO, AMANDEEP Pineda Ot C79.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 04/21/2018 GELLENDER DO, AMANDEEP Pineda Ot E78.00 PURE HYPERCHOLESTEROLEMIA, UNSPECIFIED 04/21/2018 GELLENDER DO, AMANDEEP Pineda Ot E86.0 DEHYDRATION 04/21/2018 GELLENDER DO, AMANDEEP Pineda Ot E87.1 HYPO-OSMOLALITY AND HYPONATREMIA 04/21/2018 GELLENDER DO, AMANDEEP Pineda Ot E87.8 OTH DISORDERS OF ELECTROLYTE AND FLUID B 04/21/2018 GELLENDER DO, AMANDEEP Pineda Ot G14 POSTPOLIO SYNDROME 04/21/2018 GELLENDER DO, AMANDEEP Pineda Ot G40.919 EPILEPSY, UNSP, INTRACTABLE, WITHOUT STA 04/21/2018 GELLENDER DO, AMANDEEP Pineda Ot G47.30 SLEEP APNEA, UNSPECIFIED 04/21/2018 GELLENDER DO, AMANDEEP Pineda Ot I10 ESSENTIAL (PRIMARY) HYPERTENSION 04/21/2018 GELLENDER DO, AMANDEEP Pineda Ot I95.9 HYPOTENSION, UNSPECIFIED 04/21/2018 GELLENDER DO, AMANDEEP Pineda Ot J18.1 LOBAR PNEUMONIA, UNSPECIFIED ORGANISM 04/21/2018 GELLENDER DO, AMANDEEP Pineda Ot J30.2 OTHER SEASONAL ALLERGIC RHINITIS 04/21/2018 GELLENDER DO, AMANDEEP Pineda Ot J43.9 EMPHYSEMA, UNSPECIFIED 04/21/2018 GELLENDER DO, AMANDEEP Pineda Ot J98.11 ATELECTASIS 04/21/2018 [facility], AMANDEEP Pineda Ot M19.91 PRIMARY OSTEOARTHRITIS, UNSPECIFIED SITE 04/21/2018 [facility], AMANDEEP Pineda Ot N17.9 ACUTE KIDNEY FAILURE, UNSPECIFIED 04/21/2018 [facility] AM[facility]EP Pineda Ot R06.03 ACUTE RESPIRATORY DISTRESS 04/21/2018 [facility], AMANDEEP Pineda Ot R09.02 HYPOXEMIA 04/21/2018 [facility], AMANDEEP Pineda Ot R64 CACHEXIA 04/21/2018 [facility], AMANDEEP Pineda Ot S12.9XXD FRACTURE OF NECK, UNSPECIFIED, SUBSEQUEN 04/21/2018 [facility], AMANDEEP Pineda Ot Z87.891 PERSONAL HISTORY OF NICOTINE DEPENDENCE 04/21/2018 [facility], AMANDEEP Pineda Ot Z99.81 DEPENDENCE ON SUPPLEMENTAL OXYGEN 04/24/2018 [facility], AMANDEEP Pineda Ot 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 04/24/2018 [facility], AMANDEEP Pineda Ot C34.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 04/24/2018 [facility], AMANDEEP Pineda Ot C79.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 04/24/2018 [facility], AMANDEEP Pineda Ot E78.00 PURE HYPERCHOLESTEROLEMIA, UNSPECIFIED 04/24/2018 [facility], AMANDEEP Pineda Ot E86.0 DEHYDRATION 04/24/2018 [facility], AMANDEEP Pineda Ot E87.1 HYPO-OSMOLALITY AND HYPONATREMIA 04/24/2018 [facility], AMANDEEP Pineda Ot E87.8 OTH DISORDERS OF ELECTROLYTE AND FLUID B 04/24/2018 [facility], AMANDEEP Pineda Ot G14 POSTPOLIO SYNDROME 04/24/2018 [facility], AMANDEEP Pineda Ot G40.919 EPILEPSY, UNSP, INTRACTABLE, WITHOUT STA 04/24/2018 [facility] AMANDEEP Pineda Ot G47.30 SLEEP APNEA, UNSPECIFIED 04/24/2018 [facility], AMANDEEP Pineda Ot I10 ESSENTIAL (PRIMARY) HYPERTENSION 04/24/2018 [facility], AMANDEEP Pineda Ot I95.9 HYPOTENSION, UNSPECIFIED 04/24/2018 [facility] AMANDEEP Pineda Ot J18.1 LOBAR PNEUMONIA, UNSPECIFIED ORGANISM 04/24/2018 [facility], AMANDEEP Pineda Ot J30.2 OTHER SEASONAL ALLERGIC RHINITIS 04/24/2018 GELLENDER DO, AMANDEEP Pineda Ot J43.9 EMPHYSEMA, UNSPECIFIED 04/24/2018 GELLENDER DO, AMANDEEP Pineda Ot J98.11 ATELECTASIS 04/24/2018 GELLENDER DO, AMANDEEP Pineda Ot M19.91 PRIMARY OSTEOARTHRITIS, UNSPECIFIED SITE 04/24/2018 GELLENDER DO, AMANDEEP Pineda Ot N17.9 ACUTE KIDNEY FAILURE, UNSPECIFIED 04/24/2018 GELLENDER DO, AMANDEEP Pineda Ot R06.03 ACUTE RESPIRATORY DISTRESS 04/24/2018 GELLENDER DO, AMANDEEP Pineda Ot R09.02 HYPOXEMIA 04/24/2018 GELLENDER DO, AMANDEEP Pineda Ot R64 CACHEXIA 04/24/2018 GELLENDER DO, AMANDEEP Pineda Ot S12.9XXD FRACTURE OF NECK, UNSPECIFIED, SUBSEQUEN 04/24/2018 GELLENDER DO, AMANDEEP Pineda Ot Z87.891 PERSONAL HISTORY OF NICOTINE DEPENDENCE 04/24/2018 GELLENDER DO, AMANDEEP Miriam Ot Z99.81 DEPENDENCE ON SUPPLEMENTAL OXYGEN 04/27/2018 STEPHEN PRICE Ot C34.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, LEFT B 04/27/2018 STEPHEN PRICE Ot C79.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 04/27/2018 STEPHEN PRICE Ot E78.5 HYPERLIPIDEMIA, UNSPECIFIED 04/27/2018 STEPHEN PRICE Ot G40.909 EPILEPSY, UNSP, NOT INTRACTABLE, WITHOUT 04/27/2018 STEPHEN PRICE Ot J43.9 EMPHYSEMA, UNSPECIFIED 04/27/2018 STEPHEN PRICE Ot Z79.899 OTHER [facility] (CURRENT) DRUG THERAPY 04/27/2018 STEPHEN PRICE Ot Z87.891 PERSONAL HISTORY OF NICOTINE DEPENDENCE 05/06/2018 SIVA RESENDIZ WIDE [employer] NETWORK 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 Ot C34.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, LEFT B 05/06/2018 SIVA RESENDIZ [employer] NETWORK 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 Ot C79.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 05/07/2018 STEPHEN PRICE Ot C34.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, LEFT B 05/07/2018 STEPHEN PRICE Ot C79.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 05/07/2018 STEPHEN PRICE Ot E78.5 HYPERLIPIDEMIA, UNSPECIFIED 05/07/2018 STEPHEN PRICE Ot G40.909 EPILEPSY, UNSP, NOT INTRACTABLE, WITHOUT 05/07/2018 DEESTEPHEN PATRICIO Flavio Ot J43.9 EMPHYSEMA, UNSPECIFIED 05/07/2018 STEPHEN PRICE Flavio Ot Z79.899 [facility] (CURRENT) DRUG THERAPY 05/07/2018 STEPHEN PRICE Flavio Ot Z87.891 PERSONAL HISTORY OF NICOTINE DEPENDENCE 05/11/2018 DEESTEPHEN Ot C34.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, LEFT B 05/11/2018 STEPHEN PRICE Ot C79.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 05/11/2018 DEESTEPHEN Ot E78.5 HYPERLIPIDEMIA, UNSPECIFIED 05/11/2018 DEE SABASBAHMAN Flavio Ot G40.909 EPILEPSY, UNSP, NOT INTRACTABLE, WITHOUT 05/11/2018 DEESTEPHEN Ot J43.9 EMPHYSEMA, UNSPECIFIED 05/11/2018 DEESABASBAHMAN Flavio Ot Z51.11 ENCOUNTER FOR ANTINEOPLASTIC CHEMOTHERAP 05/11/2018 DEE STEPHEN Flavio Ot Z79.899 OTHER [facility] (CURRENT) DRUG THERAPY 05/11/2018 STEPHEN PRICE Flavio Ot Z87.891 PERSONAL HISTORY OF NICOTINE DEPENDENCE 05/12/2018 AMANDEEP GENAO DO Ot M19.011 PRIMARY OSTEOARTHRITIS, RIGHT SHOULDER 05/12/2018 AMANDEEP GENAO DO Ot M79.621 PAIN IN RIGHT UPPER ARM 05/12/2018 AMANDEEP GENAO DO Ot S79.911A UNSPECIFIED INJURY OF RIGHT HIP, INITIAL 05/12/2018 AMANDEEP GENAO DO Ot W19.XXXA UNSPECIFIED FALL, INITIAL ENCOUNTER 05/14/2018 AMANDEEP GENAO DO Ot R05 COUGH 05/14/2018 BROOKELENDER AMANDEEP LASSITER Ot R91.8 OTHER NONSPECIFIC ABNORMAL FINDING OF DAVID 05/14/2018 AMANDEEP GENAO DO Ot Z95.828 PRESENCE OF OTHER VASCULAR IMPLANTS AND 05/19/2018 DYAN ELLISON DOI Ot C34.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 05/19/2018 DYAN ELLISON DOI Ot C79.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 05/19/2018 DYAN ELLISON DOI Ot D70.3 NEUTROPENIA DUE TO INFECTION 05/19/2018 DYAN ELLISON DOI Ot E22.2 SYNDROME OF INAPPROPRIATE SECRETION OF A 05/19/2018 SCOT LASSITER JAMIR Ot E78.00 PURE HYPERCHOLESTEROLEMIA, UNSPECIFIED 05/19/2018 SCOT LASSITER, JAMIR Ot G14 POSTPOLIO SYNDROME 05/19/2018 SCOT LASSITER JAMIR Ot G40.90 9 EPILEPSY, UNSP, NOT INTRACTABLE, WITHOUT 05/19/2018 SCOT LASSITER JAMIR Ot G47.30 SLEEP APNEA, UNSPECIFIED 05/19/2018 SCOT LASSITER JAMIR Ot G62.9 POLYNEUROPATHY, UNSPECIFIED 05/19/2018 SCOT LASSITER JAMIR Ot I10 ESSENTIAL (PRIMARY) HYPERTENSION 05/19/2018 SCOT LASSITER JAMIR Ot J18.1 LOBAR PNEUMONIA, UNSPECIFIED ORGANISM 05/19/2018 SCOT LASSITER JAMIR Ot J43.9 EMPHYSEMA, UNSPECIFIED 05/19/2018 SCOT LASSITER JAMIR Ot J98.11 ATELECTASIS 05/19/2018 SCOT LASSITER JAMIR Ot M19.91 PRIMARY OSTEOARTHRITIS, UNSPECIFIED SITE 05/19/2018 SCOT LASSITER JAMIR Ot R09.02 HYPOXEMIA 05/19/2018 DYAN ELLISON DOI Ot R11.2 NAUSEA WITH VOMITING, UNSPECIFIED 05/19/2018 SCOT LASSITER JAMIR Ot R53.1 WEAKNESS 05/19/2018 SCOT LASSITER JAMIR Ot S12.9X XD FRACTURE OF NECK, UNSPECIFIED, SUBSEQUEN 05/19/2018 SCOT LASSITER JAMIR Ot Z87.89 1 PERSONAL HISTORY OF NICOTINE DEPENDENCE 05/19/2018 SCOT LASSITER JAMIR Ot Z92.21 PERSONAL HISTORY OF ANTINEOPLASTIC CHEMO 05/19/2018 SCOT LASSITER JAMIR Ot Z99.81 DEPENDENCE ON SUPPLEMENTAL OXYGEN 05/25/2018 STEPHEN PRICE Ot C34.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, LEFT B 05/25/2018 STEPHEN PRICE Ot C79.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 05/25/2018 STEPHEN PRICE Ot E78.5 HYPERLIPIDEMIA, UNSPECIFIED 05/25/2018 STEPHEN PRICE Ot G40.909 EPILEPSY, UNSP, NOT INTRACTABLE, WITHOUT 05/25/2018 STEPHEN PRICE Ot J43.9 EMPHYSEMA, UNSPECIFIED 05/25/2018 STEPHEN PRICE Ot Z51.11 ENCOUNTER FOR ANTINEOPLASTIC CHEMOTHERAP 05/25/2018 STEPHEN PRICE Ot Z79.899 OTHER RECRUITMENT INTERNSHIP (CURRENT) DRUG THERAPY 05/25/2018 STEPHEN PRICE Ot Z87.891 PERSONAL HISTORY OF NICOTINE DEPENDENCE 05/25/2018 SIVA [employer] 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 Ot C34.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, LEFT B 05/25/2018 SIVA [employer] 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 Ot C79.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 05/27/2018 GELLENDER DO, AMANDEEP Pineda Ot M19.011 PRIMARY OSTEOARTHRITIS, RIGHT SHOULDER 05/27/2018 GELLENDER DO, AMANDEEP Pineda Ot M79.621 PAIN IN RIGHT UPPER ARM 05/27/2018 GELLENDER DO, AMANDEEP Pineda Ot S79.911A UNSPECIFIED INJURY OF RIGHT HIP, INITIAL 05/27/2018 GELLENDER DO, AMANDEEP Pineda Ot W19.XXXA UNSPECIFIED FALL, INITIAL ENCOUNTER 05/27/2018 GELLENDER DO, AMANDEEP Pineda Ot R05 COUGH 05/27/2018 GELLENDER DO, AMANDEEP Pineda Ot R91.8 OTHER NONSPECIFIC ABNORMAL FINDING OF DAVID 05/27/2018 GELLENDER DO, AMANDEEP Pineda Ot Z95.828 PRESENCE OF OTHER VASCULAR IMPLANTS AND 06/13/2018 GELLENDER DO, AMANDEEP Pineda Ot C34.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 06/13/2018 GELLENDER DO, AMANDEEP Pineda Ot C79.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 06/13/2018 GELLENDER DO, AMANDEEP Pineda Ot D64.9 ANEMIA, UNSPECIFIED 06/13/2018 GELLENDER DO, AMANDEEP Pineda Ot D70.1 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 06/13/2018 GELLENDER DO, AMANDEEP Pineda Ot E78.5 HYPERLIPIDEMIA, UNSPECIFIED 06/13/2018 GELLENDER DO, AMANDEEP Pineda Ot G14 POSTPOLIO SYNDROME 06/13/2018 GELLENDER DO, AMANDEEP Pineda Ot G40.909 EPILEPSY, UNSP, NOT INTRACTABLE, WITHOUT 06/13/2018 GELLENDER DO, AMANDEEP Pnieda Ot G47.30 SLEEP APNEA, UNSPECIFIED 06/13/2018 GELLENDER DO, AMANDEEP Pineda Ot G62.9 POLYNEUROPATHY, UNSPECIFIED 06/13/2018 GELLENDER DO, AMANDEEP Pineda Ot I10 ESSENTIAL (PRIMARY) HYPERTENSION 06/13/2018 GELLENDER DO, AMANDEEP Pineda Ot I25.10 ATHSCL HEART DISEASE OF [place] CORONARY 06/13/2018 GELLENDER DO, AMANDEEP Pineda Ot J18.1 LOBAR PNEUMONIA, UNSPECIFIED ORGANISM 06/13/2018 GELLENDER DO, AMANDEEP Pineda Ot J44.0 CHRONIC OBSTRUCTIVE PULMON DISEASE W ACU 06/13/2018 GELLENDER DO, AMANDEEP Pineda Ot J44.1 CHRONIC OBSTRUCTIVE PULMONARY DISEASE W 06/13/2018 GELLENDER DO, AMANDEEP Pineda Ot J98.11 ATELECTASIS 06/13/2018 GELLENDER DO, AMANDEEP Pineda Ot M19.91 PRIMARY OSTEOARTHRITIS, UNSPECIFIED SITE 06/13/2018 GELLENDER DO, AMANDEEP Pineda Ot R09.02 HYPOXEMIA 06/13/2018 GELLENDER DO, AMANDEEP Pineda Ot T45.1X5A ADVERSE EFFECT OF ANTINEOPLASTIC AND IMM 06/13/2018 GELLENDER , AMANDEEP Pineda Ot Z87.891 PERSONAL HISTORY OF NICOTINE DEPENDENCE 06/13/2018 [facility] Pineda Ot Z99.81 DEPENDENCE ON SUPPLEMENTAL OXYGEN 06/22/2018 [facility] P[facility] Ot R56.9 UNSPECIFIED CONVULSIONS 06/22/2018 [facility], AMANDEEP Pineda Ot F17.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, UNSPECIFIED, UNCOMP 06/22/2018 GELLENDER DO, AMANDEEP Pineda Ot J44.9 CHRONIC OBSTRUCTIVE PULMONARY DISEASE, U 06/22/2018 GELLENDER DO, AMANDEEP Pineda Ot R63.4 ABNORMAL WEIGHT LOSS 06/22/2018 [facility] AM[facility] Pineda Ot J44.9 CHRONIC OBSTRUCTIVE PULMONARY DISEASE, U 06/22/2018 GELLENDER DO, AMANDEEP Pineda Ot R63.4 ABNORMAL WEIGHT LOSS 06/22/2018 GELLENDER DO, AMANDEEP Pineda Ot R63.4 ABNORMAL WEIGHT LOSS 06/22/2018 [facility] AM[facility]EP Pineda Ot G40.909 EPILEPSY, UNSP, NOT INTRACTABLE, WITHOUT 06/22/2018 GELLENDER DO, AMANDEEP Pineda Ot J44.9 CHRONIC OBSTRUCTIVE PULMONARY DISEASE, U 06/22/2018 GELLENDER DO, AMANDEEP Pineda Ot E87.1 HYPO-OSMOLALITY AND HYPONATREMIA 06/22/2018 GELLENDER DO, AMANDEEP Pineda Ot G40.909 EPILEPSY, UNSP, NOT INTRACTABLE, WITHOUT 06/22/2018 GELLENDER DO, AMANDEEP Pineda Ot J44.9 CHRONIC OBSTRUCTIVE PULMONARY DISEASE, U 06/22/2018 GELLENDER DO, AMANDEEP Pineda Ot G40.909 EPILEPSY, UNSP, NOT INTRACTABLE, WITHOUT 06/22/2018 [place] AMANDEEP LASSITER Ot J34.89 OTHER SPECIFIED DISORDERS OF NOSE AND NA 06/22/2018 [place] AMANDEEP LASSITER Ot S99.912A UNSPECIFIED INJURY OF LEFT ANKLE, INITIA 06/22/2018 [place] AMANDEEP LASSITER Ot W19.XXXA UNSPECIFIED FALL, INITIAL ENCOUNTER 06/22/2018 AMANDEEP GENAO DO Ot Y99.8 OTHER EXTERNAL CAUSE STATUS 06/22/2018 AMANDEEP GENAO DO Ot G40.909 EPILEPSY, UNSP, NOT INTRACTABLE, WITHOUT 06/22/2018 [place] AMANDEEP LASSITER Ot R06.02 SHORTNESS OF BREATH 06/22/2018 AMANDEEP GENAO DO Ot R63.4 ABNORMAL WEIGHT LOSS 06/22/2018 STEPHEN PRICE Ot J43.9 EMPHYSEMA, UNSPECIFIED 06/22/2018 STEPHEN PRICE Ot R91.1 SOLITARY PULMONARY NODULE 06/22/2018 RANI PACHECO DO Ot F17.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, UNSPECIFIED, UNCOMP 06/22/2018 RANI PACHECO DO Ot J96. 21 ACUTE AND CHRONIC RESPIRATORY FAILURE WI 06/22/2018 RANI PACHECO DO Ot R22. 0 LOCALIZED SWELLING, MASS AND LUMP, HEAD 06/22/2018 RANI PACHECO DO Ot Z99. 81 DEPENDENCE ON SUPPLEMENTAL OXYGEN 06/22/2018 RANI PACHECO DO, Ot J44. 9 CHRONIC OBSTRUCTIVE PULMONARY DISEASE, U 06/22/2018 RANI PACHECO DO Ot M25.559 PAIN IN UNSPECIFIED HIP 06/22/2018 RANI PACHECO DO Ot R91. 8 OTHER NONSPECIFIC ABNORMAL FINDING OF DAVID 06/22/2018 RANI PACHECO DO Ot Z72. 0 TOBACCO USE 06/22/2018 AMANDEEP GENAO DO Ot J44.9 CHRONIC OBSTRUCTIVE PULMONARY DISEASE, U 06/22/2018 NINA ANAYA APRN Ot M79.604 PAIN IN RIGHT LEG 06/22/2018 NINA ANAYA APRN Ot M79.605 PAIN IN LEFT LEG 06/22/2018 NINA ANAYA APRN Ot M79.89 OTHER SPECIFIED SOFT TISSUE DISORDERS 06/22/2018 NINA ANAYA APRN Ot R91.8 OTHER NONSPECIFIC ABNORMAL FINDING OF DAVID 06/22/2018 SIVA RESENDIZ WIDE AREA NETWORK 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 Ot C34.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, LEFT B 06/22/2018 SIVA RESENDIZ WIDE [employer] NETWORK 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 Ot C79.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 06/22/2018 AMANDEEP GENAO DO Ot B35.1 TINEA UNGUIUM 06/22/2018 SIVA RESENDIZ WIDE AREA NETWORK 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 Ot C34.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, LEFT B 06/22/2018 SIVA RESENDIZ WIDE [employer] NETWORK 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 Ot C79.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 06/22/2018 SIVA RESENDIZ WIDE AREA NETWORK 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 Ot C34.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, LEFT B 06/22/2018 SIVA RESENDIZP Ot C34.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, LEFT B 06/22/2018 SIVA RESENDIZ WIDE [employer] NETWORK 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 Ot C79.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 06/22/2018 AMANDEEP GENAO DO Ot M43.12 SPONDYLOLISTHESIS, CERVICAL REGION 06/22/2018 [facility] Ot M47.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 06/22/2018 [facility] AMANDEEP LASSITER Ot S19.9XXA UNSPECIFIED INJURY OF NECK, INITIAL ENCO 06/22/2018 STEPHEN PRICE Ot C34.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, LEFT B 06/22/2018 STEPHEN PRICE Ot C79.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 06/22/2018 STEPHEN PRICE Ot E78.5 HYPERLIPIDEMIA, UNSPECIFIED 06/22/2018 STEPHEN PRICE Ot G40.909 EPILEPSY, UNSP, NOT INTRACTABLE, WITHOUT 06/22/2018 STEPHEN PRICE Ot J43.9 EMPHYSEMA, UNSPECIFIED 06/22/2018 STEPHEN PRICE Ot Z51.11 ENCOUNTER FOR ANTINEOPLASTIC CHEMOTHERAP 06/22/2018 STEPHEN PRICE Ot Z79.899 OTHER RECRUITMENT INTERNSHIP (CURRENT) DRUG THERAPY 06/22/2018 STEPHEN PRICE Ot Z87.891 PERSONAL HISTORY OF NICOTINE DEPENDENCE 06/22/2018 SIVA RESENDIZ WIDE [employer] NETWORK 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 Ot C34.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, LEFT B 06/22/2018 RESENDIZSIVA RodriguezP Ot C79.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 06/22/2018 [place] LASSITER, AMANDEEP Pineda Ot M19.011 PRIMARY OSTEOARTHRITIS, RIGHT SHOULDER 06/22/2018 [place] LASSITER, AMANDEEP Pineda Ot M79.621 PAIN IN RIGHT UPPER ARM 06/22/2018 [place] LASSITER, AMANDEEP Pineda Ot S79.911A UNSPECIFIED INJURY OF RIGHT HIP, INITIAL 06/22/2018 [facility] LASSITER, AMANDEEP Pineda Ot W19.XXXA UNSPECIFIED FALL, INITIAL ENCOUNTER 06/22/2018 [place] LASSITER, AMANDEEP Pineda Ot R05 COUGH 06/22/2018 [place] LASSITER, AMANDEEP Pineda Ot R91.8 OTHER NONSPECIFIC ABNORMAL FINDING OF DAVID 06/22/2018 [place] LASSITER, AMANDEEP Pineda Ot Z95.828 PRESENCE OF OTHER VASCULAR IMPLANTS AND 06/23/2018 SIVA RESENDIZP Ot J98.11 ATELECTASIS 06/23/2018 SIVA RESENDIZP Ot M43.12 SPONDYLOLISTHESIS, CERVICAL REGION 06/23/2018 SIVA RESENDIZP Ot M47.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 06/23/2018 SIVA RESENDIZP Ot S12.190A OTH DISP FX OF SECOND CERVICAL VERTEBRA, 06/23/2018 SIVA RESENDIZP Ot W19.XXXA UNSPECIFIED FALL, INITIAL ENCOUNTER 06/23/2018 SIVA RESENDIZP Ot Z95.828 PRESENCE OF OTHER VASCULAR IMPLANTS AND 06/25/2018 [place] LASSITERAMANDEEP Ot C34.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 06/25/2018 [place] LASSITERAMANDEEP Ot C79.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 06/25/2018 [place] LASSITERAMANDEEP Ot D64.9 ANEMIA, UNSPECIFIED 06/25/2018 GELLENDER DOAMANDEEP Ot E78.00 PURE HYPERCHOLESTEROLEMIA, UNSPECIFIED 06/25/2018 BROOKELENDER DOAMANDEEP Ot E86.0 DEHYDRATION 06/25/2018 BROOKELENBRAYAN DOAMANDEEP Ot F10.11 ALCOHOL ABUSE, IN REMISSION 06/25/2018 [place] LASSITERAMANDEEP Ot 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, IN R 06/25/2018 BROOKELENDER AMANDEEP Ot G14 POSTPOLIO SYNDROME 06/25/2018 GELLENDER DO, AMANDEEP Pineda Ot G40.909 EPILEPSY, UNSP, NOT INTRACTABLE, WITHOUT 06/25/2018 GELLENDER DO, AMANDEEP Pineda Ot G47.30 SLEEP APNEA, UNSPECIFIED 06/25/2018 [facility], AMANDEEP Pineda Ot G62.9 POLYNEUROPATHY, UNSPECIFIED 06/25/2018 [facility], AMANDEEP Pineda Ot H53.9 UNSPECIFIED VISUAL DISTURBANCE 06/25/2018 [facility] DO, AMANDEEP Pineda Ot I10 ESSENTIAL (PRIMARY) HYPERTENSION 06/25/2018 [facility] AM[facility]EP Pineda Ot I38 ENDOCARDITIS, VALVE UNSPECIFIED 06/25/2018 GELLENDER DO, AMANDEEP Pineda Ot J18.1 LOBAR PNEUMONIA, UNSPECIFIED ORGANISM 06/25/2018 [facility], AMANDEEP Pineda Ot J44.9 CHRONIC OBSTRUCTIVE PULMONARY DISEASE, U 06/25/2018 [facility], AMANDEEP Pineda Ot M19.91 PRIMARY OSTEOARTHRITIS, UNSPECIFIED SITE 06/25/2018 [facility] DO, AMANDEEP Pineda Ot R01.1 CARDIAC MURMUR, UNSPECIFIED 06/25/2018 [facility], AMANDEEP Pineda Ot R41.0 DISORIENTATION, UNSPECIFIED 06/25/2018 GELDER DO, AMANDEEP Pineda Ot R42 DIZZINESS AND GIDDINESS 06/25/2018 [facility], AMANDEEP Pineda Ot R47.81 SLURRED SPEECH 06/25/2018 [facility], AMANDEEP Pineda Ot R79.89 OTHER SPECIFIED ABNORMAL FINDINGS OF BLO 06/25/2018 [facility], AMANDEEP Pineda Ot T42.0X5A ADVERSE EFFECT OF HYDANTOIN DERIVATIVES, 06/25/2018 [facility] AM[facility] Ot T42.1X5A ADVERSE EFFECT OF IMINOSTILBENES, INITIA 06/25/2018 [facility] AMANDEEP Pineda Ot Z87.891 PERSONAL HISTORY OF NICOTINE DEPENDENCE 06/25/2018 [facility] AMANDEEP Pineda Ot Z92.21 PERSONAL HISTORY OF ANTINEOPLASTIC CHEMO 06/25/2018 [facility], AMANDEEP Pineda Ot Z99.81 DEPENDENCE ON SUPPLEMENTAL OXYGEN 06/26/2018 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, IN R 06/26/2018 GELLENDER DO, AMANDEEP Pineda Ot G14 POSTPOLIO SYNDROME 06/26/2018 GELLENDER DO, AMANDEEP Pineda Ot G40.909 EPILEPSY, UNSP, NOT INTRACTABLE, WITHOUT 06/26/2018 GELLENDER DO, AMANDEEP Pineda Ot G47.30 SLEEP APNEA, UNSPECIFIED 06/26/2018 GELLENDER DO, AMANDEEP Pineda Ot G62.9 POLYNEUROPATHY, UNSPECIFIED 06/26/2018 GELLENDER DO, AMANDEEP Pineda Ot H53.9 UNSPECIFIED VISUAL DISTURBANCE 06/26/2018 GELLENDER DO, AMANDEEP Pineda Ot I10 ESSENTIAL (PRIMARY) HYPERTENSION 06/26/2018 GELLENDER DO, AMANDEEP Pineda Ot I38 ENDOCARDITIS, VALVE UNSPECIFIED 06/26/2018 GELLENDER DO, AMANDEEP Pineda Ot J18.1 LOBAR PNEUMONIA, UNSPECIFIED ORGANISM 06/26/2018 GELLENDER DO, AMANDEEP Pineda Ot J43.9 EMPHYSEMA, UNSPECIFIED 06/26/2018 GELLENDER DO, AMANDEEP Pineda Ot J96.10 CHRONIC RESPIRATORY FAILURE, UNSP W HYPO 06/26/2018 GELLENDER DO, AMANDEEP Pineda Ot M19.91 PRIMARY OSTEOARTHRITIS, UNSPECIFIED SITE 06/26/2018 GELLENDER DO, AMANDEEP Pineda Ot R01.1 CARDIAC MURMUR, UNSPECIFIED 06/26/2018 GELLENDER DO, AMANDEEP Pineda Ot R29.6 REPEATED FALLS 06/26/2018 GELLENDER DO, AMANDEEP Pineda Ot R41.82 ALTERED MENTAL STATUS, UNSPECIFIED 06/26/2018 GELLENDER DO, AMANDEEP Pineda Ot R42 DIZZINESS AND GIDDINESS 06/26/2018 GELLENDER DO, AMANDEEP Pineda Ot R47.81 SLURRED SPEECH 06/26/2018 GELLENDER DO, AMANDEEP Pineda Ot R79.89 OTHER SPECIFIED ABNORMAL FINDINGS OF BLO 06/26/2018 GELLENDER DO, AMANDEEP Pineda Ot S12.190D OTH DISP FX OF SECOND CERVCAL VERT, SUBS 06/26/2018 GELAMANDEEP SAUCEDO DO Ot T42.0X5A ADVERSE EFFECT OF HYDANTOIN DERIVATIVES, 06/26/2018 AMANDEEP GENAO DO Ot T42.1X5A ADVERSE EFFECT OF IMINOSTILBENES, INITIA 06/26/2018 AMANDEEP GENAO DO Ot Z87.891 PERSONAL HISTORY OF NICOTINE DEPENDENCE 06/26/2018 AMANDEEP GENAO DO Ot Z92.21 PERSONAL HISTORY OF ANTINEOPLASTIC CHEMO 06/26/2018 AMANDEEP GENAO DO Ot Z99.81 DEPENDENCE ON SUPPLEMENTAL OXYGEN 06/28/2018 SIVA RESENDIZ Ot J98.11 ATELECTASIS 06/28/2018 SIVA RESENDIZ Ot M43.12 SPONDYLOLISTHESIS, CERVICAL REGION 06/28/2018 SIVA RESENDIZ Ot M47.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 06/28/2018 SIVA RESENDIZ Ot S12.190A OTH DISP FX OF SECOND CERVICAL VERTEBRA, 06/28/2018 SIVA RESENDIZ Ot W19.XXXA UNSPECIFIED FALL, INITIAL ENCOUNTER 06/28/2018 SIVA RESENDIZ Ot Z95.828 PRESENCE OF OTHER VASCULAR IMPLANTS AND 07/03/2018 RANI PACHECO DO Ot C34. 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 9 PNEUMONIA, UNSPECIFIED ORGANISM 07/03/2018 RANI PACHECO DO Ot J44. 1 CHRONIC OBSTRUCTIVE PULMONARY DISEASE W 07/03/2018 RANI PACHECO DO Ot J96. 20 ACUTE AND CHR RESP FAILURE, UNSP W HYPOX 07/03/2018 RANI PACHECO DO Ot R91. 8 OTHER NONSPECIFIC ABNORMAL FINDING OF DAVID 07/03/2018 ARNI PACHECO DO Ot Z95.828 PRESENCE OF OTHER VASCULAR IMPLANTS AND 07/10/2018 SIVA RESENDIZ Ot J98.11 ATELECTASIS 07/10/2018 SIVA RESENDIZ Ot M43.12 SPONDYLOLISTHESIS, CERVICAL REGION 07/10/2018 SIVA RESENDIZ Ot M47.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 07/10/2018 SIVA RESENDIZ WIDE AREA NETWORK 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 Ot S12.190A OTH DISP FX OF SECOND CERVICAL VERTEBRA, 07/10/2018 SIVA RESENDIZ WIDE AREA NETWORK 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 Ot W19.XXXA UNSPECIFIED FALL, INITIAL ENCOUNTER 07/10/2018 SIVA RESENDIZ WIDE AREA NETWORK 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 Ot Z95.828 PRESENCE OF OTHER VASCULAR IMPLANTS AND 07/14/2018 GELLENDER DO, AMANDEEP Pineda Ot R56.9 UNSPECIFIED CONVULSIONS 07/14/2018 GELLENDER DO, AMANDEEP Pineda Ot F17.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, UNSPECIFIED, UNCOMP 07/14/2018 GELLENDER DO, AMANDEEP Pineda Ot J44.9 CHRONIC OBSTRUCTIVE PULMONARY DISEASE, U 07/14/2018 GELLENDER DO, AMANDEEP Pineda Ot R63.4 ABNORMAL WEIGHT LOSS 07/14/2018 GELLENDER DO, AMANDEEP Pineda Ot J44.9 CHRONIC OBSTRUCTIVE PULMONARY DISEASE, U 07/14/2018 GELLENDER DO, AMANDEEP Pineda Ot R63.4 ABNORMAL WEIGHT LOSS 07/14/2018 GELLENDER DO, AMANDEEP Pineda Ot R63.4 ABNORMAL WEIGHT LOSS 07/14/2018 GELLENDER DO, AMANDEEP Pineda Ot G40.909 EPILEPSY, UNSP, NOT INTRACTABLE, WITHOUT 07/14/2018 GELLENDER DO, AMANDEEP Pineda Ot J44.9 CHRONIC OBSTRUCTIVE PULMONARY DISEASE, U 07/14/2018 GELLENDER DO, AMANDEEP Pineda Ot E87.1 HYPO-OSMOLALITY AND HYPONATREMIA 07/14/2018 GELLENDER DO, AMANDEEP Pineda Ot G40.909 EPILEPSY, UNSP, NOT INTRACTABLE, WITHOUT 07/14/2018 GELLENDER DO, AMANDEEP Pineda Ot J44.9 CHRONIC OBSTRUCTIVE PULMONARY DISEASE, U 07/14/2018 GELLENDER DO, AMANDEEP Pineda Ot G40.909 EPILEPSY, UNSP, NOT INTRACTABLE, WITHOUT 07/14/2018 GELLENDER DO, AMANDEEP Pineda Ot J34.89 OTHER SPECIFIED DISORDERS OF NOSE AND NA 07/14/2018 GELLENDER DO, AMANDEEP Pineda Ot S99.912A UNSPECIFIED INJURY OF LEFT ANKLE, INITIA 07/14/2018 GELLENDER DOAMANDEEP Ot W19.XXXA UNSPECIFIED FALL, INITIAL ENCOUNTER 07/14/2018 AMANDEEP GENAO DO Ot Y99.8 OTHER EXTERNAL CAUSE STATUS 07/14/2018 GELLENDER AMANDEEP LASSITER Ot G40.909 EPILEPSY, UNSP, NOT INTRACTABLE, WITHOUT 07/14/2018 [facility]OOK[facility] AMANDEEP LASSITER Ot R06.02 SHORTNESS OF BREATH 07/14/2018 AMANDEEP GENAO DO Ot R63.4 ABNORMAL WEIGHT LOSS 07/14/2018 DEESTEPHEN Ot J43.9 EMPHYSEMA, UNSPECIFIED 07/14/2018 STEPHEN PRICE Flavio Ot R91.1 SOLITARY PULMONARY NODULE 07/14/2018 RANI PACHECO DO Ot F17.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, UNSPECIFIED, UNCOMP 07/14/2018 RANI PACHECO DO Ot J96. 21 ACUTE AND CHRONIC RESPIRATORY FAILURE WI 07/14/2018 RANI PACHECO DO Ot R22. 0 LOCALIZED SWELLING, MASS AND LUMP, HEAD 07/14/2018 RANI PACHECO DO Ot Z99. 81 DEPENDENCE ON SUPPLEMENTAL OXYGEN 07/14/2018 RANI PACHECO DO Ot J44. 9 CHRONIC OBSTRUCTIVE PULMONARY DISEASE, U 07/14/2018 RANI PACHECO DO Ot M25.559 PAIN IN UNSPECIFIED HIP 07/14/2018 RANI PACHECO DO Ot R91. 8 OTHER NONSPECIFIC ABNORMAL FINDING OF DAVID 07/14/2018 RANI PACHECO DO Ot Z72. 0 TOBACCO USE 07/14/2018 AMANDEEP GENAO DO Ot J44.9 CHRONIC OBSTRUCTIVE PULMONARY DISEASE, U 07/14/2018 NINA ANAYA APRN Ot M79.604 PAIN IN RIGHT LEG 07/14/2018 NINA ANAYA APRN Ot M79.605 PAIN IN LEFT LEG 07/14/2018 NINA ANAYA APRN Ot M79.89 OTHER SPECIFIED SOFT TISSUE DISORDERS 07/14/2018 NINA ANAYA APRN Ot R91.8 OTHER NONSPECIFIC ABNORMAL FINDING OF DAVID 07/14/2018 SIVA RESENDIZP Ot C34.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, LEFT B 07/14/2018 SIVA RESENDIZP Ot C79.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 07/14/2018 AMANDEEP GENAO DO Ot B35.1 TINEA UNGUIUM 07/14/2018 SIVA RESENDIZP Ot C34.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, LEFT B 07/14/2018 SIVA RESENDIZ WIDE AREA NETWORK 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 Ot C79.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 07/14/2018 SIVA RESENDIZP Ot C34.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, LEFT B 07/14/2018 SIVA RESENDIZP Ot C34.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, LEFT B 07/14/2018 SIVA RESENDIZP Ot C79.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 07/14/2018 AMANDEEP GENAO DO Ot M43.12 SPONDYLOLISTHESIS, CERVICAL REGION 07/14/2018 AMANDEEP GENAO DO Ot M47.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 07/14/2018 AMANDEEP GENAO DO Ot S19.9XXA UNSPECIFIED INJURY OF NECK, INITIAL ENCO 07/14/2018 STEPHEN PRICE Ot C34.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, LEFT B 07/14/2018 STEPHEN PRICE Ot C79.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 07/14/2018 STEPHEN PRICE Ot E78.5 HYPERLIPIDEMIA, UNSPECIFIED 07/14/2018 STEPHEN PRIEC Ot G40.909 EPILEPSY, UNSP, NOT INTRACTABLE, WITHOUT 07/14/2018 STEPHEN PRICE Ot J43.9 EMPHYSEMA, UNSPECIFIED 07/14/2018 STEPHEN PRICE Ot Z51.11 ENCOUNTER FOR ANTINEOPLASTIC CHEMOTHERAP 07/14/2018 STEPHEN PRICE Ot Z79.899 OTHER RECRUITMENT INTERNSHIP (CURRENT) DRUG THERAPY 07/14/2018 STEPHEN PRICE Ot Z87.891 PERSONAL HISTORY OF NICOTINE DEPENDENCE 07/14/2018 SIVA RESENDIZP Ot C34.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, LEFT B 07/14/2018 SIVA RESENDIZP Ot C79.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 07/14/2018 AMANDEEP GENAO DO Ot M19.011 PRIMARY OSTEOARTHRITIS, RIGHT SHOULDER 07/14/2018 AMANDEEP GENAO DO Ot M79.621 PAIN IN RIGHT UPPER ARM 07/14/2018 AMANDEEP GENAO DO Ot S79.911A UNSPECIFIED INJURY OF RIGHT HIP, INITIAL 07/14/2018 AMANDEEP GENAO DO Ot W19.XXXA UNSPECIFIED FALL, INITIAL ENCOUNTER 07/14/2018 [facility] LASSITER AMANDEEP Miriam Ot R05 COUGH 07/14/2018 JOSEAMANDEEP SCHMIDT DO Miriam Ot R91.8 OTHER NONSPECIFIC ABNORMAL FINDING OF DAVID 07/14/2018 JOSEBRAYAN AMANDEEP Miriam Ot Z95.828 PRESENCE OF OTHER VASCULAR IMPLANTS AND 07/14/2018 SIVA RESENDIZ Ot J98.11 ATELECTASIS 07/14/2018 SIVA RESENDIZP Ot M43.12 SPONDYLOLISTHESIS, CERVICAL REGION 07/14/2018 SIVA RESENDIZP Ot M47.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 07/14/2018 SIVA RESENDIZP Ot S12.190A OTH DISP FX OF SECOND CERVICAL VERTEBRA, 07/14/2018 SIVA RESENDIZ Ot W19.XXXA UNSPECIFIED FALL, INITIAL ENCOUNTER 07/14/2018 SIVA RESENDIZ Ot Z95.828 PRESENCE OF OTHER VASCULAR IMPLANTS AND 07/14/2018 RANI PACHECO DO Ot C34. 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, LEFT B 07/14/2018 RANI PACHECO DO Ot F17.201 NICOTINE DEPENDENCE, UNSPECIFIED, IN REM 07/14/2018 RANI PACHECO DO Ot J18. 9 PNEUMONIA, UNSPECIFIED ORGANISM 07/14/2018 RANI PACHECO DO, Ot J44. 1 CHRONIC OBSTRUCTIVE PULMONARY DISEASE W 07/14/2018 RANI PACHECO DO Ot J96. 20 ACUTE AND CHR RESP FAILURE, UNSP W HYPOX 07/14/2018 RANI PACHECO DO Ot R91. 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 2018 STEPHEN PRICE Ot Z01.89 ENCOUNTER FOR OTHER SPECIFIED SPECIAL EX 07/20/2018 STEPHEN PRICE Ot C34.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, LEFT B 07/20/2018 STEPHEN PRICE Ot C79.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 07/20/2018 STEPHEN PRICE Ot Z01.89 ENCOUNTER FOR OTHER SPECIFIED SPECIAL EX 07/21/2018 STEPHEN PRICE Ot C34.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, LEFT B 07/21/2018 STEPHEN PRICE Ot C79.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 07/21/2018 STEPHEN PRICE Ot Z01.89 ENCOUNTER FOR OTHER SPECIFIED SPECIAL EX 07/21/2018 GELLENDER DO, AMANDEEP iPneda Ot R56.9 UNSPECIFIED CONVULSIONS 07/21/2018 GELLENDER DO, AMANDEEP Pineda Ot F17.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, UNSPECIFIED, UNCOMP 07/21/2018 GELLENDER DO, AMANDEEP Pineda Ot J44.9 CHRONIC OBSTRUCTIVE PULMONARY DISEASE, U 07/21/2018 GELLENDER DO, AMANDEEP Pineda Ot R63.4 ABNORMAL WEIGHT LOSS 07/21/2018 GELLENDER DO, AMANDEEP Pineda Ot J44.9 CHRONIC OBSTRUCTIVE PULMONARY DISEASE, U 07/21/2018 GELLENDER DO, AMANDEEP Pineda Ot R63.4 ABNORMAL WEIGHT LOSS 07/21/2018 GELLENDER DO, AMANDEEP Pineda Ot R63.4 ABNORMAL WEIGHT LOSS 07/21/2018 GELLENDER DO, AMANDEEP Pineda Ot G40.909 EPILEPSY, UNSP, NOT INTRACTABLE, WITHOUT 07/21/2018 GELLENDER DOAMANDEEP Ot J44.9 CHRONIC OBSTRUCTIVE PULMONARY DISEASE, U 07/21/2018 GELLENDER DOAMANDEEP Ot E87.1 HYPO-OSMOLALITY AND HYPONATREMIA 07/21/2018 GELLENDER DOAMANDEEP Ot G40.909 EPILEPSY, UNSP, NOT INTRACTABLE, WITHOUT 07/21/2018 GELLENDER DOAMANDEEP Ot J44.9 CHRONIC OBSTRUCTIVE PULMONARY DISEASE, U 07/21/2018 GELLENDER DO, AMANDEEP Pineda Ot G40.909 EPILEPSY, UNSP, NOT INTRACTABLE, WITHOUT 07/21/2018 GELLENDER DOAMANDEEP Ot J34.89 OTHER SPECIFIED DISORDERS OF NOSE AND NA 07/21/2018 GELLENDER DOAMANDEEP Ot S99.912A UNSPECIFIED INJURY OF LEFT ANKLE, INITIA 07/21/2018 AMANDEEP GENAO DO Ot W19.XXXA UNSPECIFIED FALL, INITIAL ENCOUNTER 07/21/2018 AMANDEEP GENAO DO Ot Y99.8 OTHER EXTERNAL CAUSE STATUS 07/21/2018 AMANDEEP GENAO DO Ot G40.909 EPILEPSY, UNSP, NOT INTRACTABLE, WITHOUT 07/21/2018 [facility] LASSITER AMANDEEP Miriam Ot R06.02 SHORTNESS OF BREATH 07/21/2018 CHADWICK LASSITER AMANDEEP Miriam Ot R63.4 ABNORMAL WEIGHT LOSS 07/21/2018 STEPHEN PRICE Ot J43.9 EMPHYSEMA, UNSPECIFIED 07/21/2018 STEPHEN PRICE Ot R91.1 SOLITARY PULMONARY NODULE 07/21/2018 RANI PACHECO DO Ot F17.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, UNSPECIFIED, UNCOMP 07/21/2018 RANI PACHECO DO Ot J96. 21 ACUTE AND CHRONIC RESPIRATORY FAILURE WI 07/21/2018 RANI PACHECO DO Ot R22. 0 LOCALIZED SWELLING, MASS AND LUMP, HEAD 07/21/2018 ARNI PACHECO DO Ot Z99. 81 DEPENDENCE ON SUPPLEMENTAL OXYGEN 07/21/2018 RANI PACHECO DO Ot J44. 9 CHRONIC OBSTRUCTIVE PULMONARY DISEASE, U 07/21/2018 RANI PACHECO DO Ot M25.559 PAIN IN UNSPECIFIED HIP 07/21/2018 RANI PACHECO DO Ot R91. 8 OTHER NONSPECIFIC ABNORMAL FINDING OF DAVID 07/21/2018 RANI PACHECO DO Ot Z72. 0 TOBACCO USE 07/21/2018 JOSEBRAYAN AMANDEEP LASSITER Ot J44.9 CHRONIC OBSTRUCTIVE PULMONARY DISEASE, U 07/21/2018 NINA ANAYA APRN Ot M79.604 PAIN IN RIGHT LEG 07/21/2018 NINA ANAYA APRN Ot M79.605 PAIN IN LEFT LEG 07/21/2018 NINA ANAYA APRN Ot M79.89 OTHER SPECIFIED SOFT TISSUE DISORDERS 07/21/2018 NINA ANAYA APRN Ot R91.8 OTHER NONSPECIFIC ABNORMAL FINDING OF DAVID 07/21/2018 SIVA RESENDIZP Ot C34.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, LEFT B 07/21/2018 SIVA RESENDIZP Ot C79.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 07/21/2018 [facility] AMANDEEP LASSITER Ot B35.1 TINEA UNGUIUM 07/21/2018 SIVA RESENDIZP Ot C34.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, LEFT B 07/21/2018 SIVA RESENDIZP Ot C79.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 07/21/2018 SIVA RESENDIZP Ot C34.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, LEFT B 07/21/2018 SIVA RESENDIZP Ot C34.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, LEFT B 07/21/2018 SIVA RESENDIZP Ot C79.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 07/21/2018 [facility] AMANDEEP LASSITER Ot M43.12 SPONDYLOLISTHESIS, CERVICAL REGION 07/21/2018 AMANDEEP GENAO DO Ot M47.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 07/21/2018 AMANDEEP GENAO DO Ot S19.9XXA UNSPECIFIED INJURY OF NECK, INITIAL ENCO 07/21/2018 STEPHEN PRICE Ot C34.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, LEFT B 07/21/2018 STEPHEN PRICE Ot C79.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 07/21/2018 STEPHEN PRICE Ot E78.5 HYPERLIPIDEMIA, UNSPECIFIED 07/21/2018 STEPHEN PRICE Ot G40.909 EPILEPSY, UNSP, NOT INTRACTABLE, WITHOUT 07/21/2018 STEPHEN PRICE Ot J43.9 EMPHYSEMA, UNSPECIFIED 07/21/2018 STEPHEN PRICE Ot Z51.11 ENCOUNTER FOR ANTINEOPLASTIC CHEMOTHERAP 07/21/2018 STEPHEN PRICE Ot Z79.899 OTHER RECRUITMENT INTERNSHIP (CURRENT) DRUG THERAPY 07/21/2018 STEPHEN PRICE Ot Z87.891 PERSONAL HISTORY OF NICOTINE DEPENDENCE 07/21/2018 SIVA RESENDIZP Ot C34.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, LEFT B 07/21/2018 SIVA RESENDIZP Ot C79.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 07/21/2018 AMANDEEP GENAO DO Ot M19.011 PRIMARY OSTEOARTHRITIS, RIGHT SHOULDER 07/21/2018 AMANDEEP GENAO DO Ot M79.621 PAIN IN RIGHT UPPER ARM 07/21/2018 AMANDEEP GENAO DO Ot S79.911A UNSPECIFIED INJURY OF RIGHT HIP, INITIAL 07/21/2018 [facility] AMANDEEP Pineda Ot W19.XXXA UNSPECIFIED FALL, INITIAL ENCOUNTER 07/21/2018 [facility] AMANDEEP Pineda Ot R05 COUGH 07/21/2018 AMANDEEP GENAO DO Ot R91.8 OTHER NONSPECIFIC ABNORMAL FINDING OF DAVID 07/21/2018 AMANDEEP GENAO DO Miriam Ot Z95.828 PRESENCE OF OTHER VASCULAR IMPLANTS AND 07/21/2018 SIVA RESENDIZP Ot J98.11 ATELECTASIS 07/21/2018 SIVA RESENDIZP Ot M43.12 SPONDYLOLISTHESIS, CERVICAL REGION 07/21/2018 SIVA RESENDIZ Ot M47.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 07/21/2018 SIVA RESENDIZ Ot S12.190A OTH DISP FX OF SECOND CERVICAL VERTEBRA, 07/21/2018 SIVA RESENDIZ Ot W19.XXXA UNSPECIFIED FALL, INITIAL ENCOUNTER 07/21/2018 SIVA RESENDIZ Ot Z95.828 PRESENCE OF OTHER VASCULAR IMPLANTS AND 07/21/2018 RANI PACHECO DO Ot C34. 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, LEFT B 07/21/2018 RANI PACHECO DO Ot F17.201 NICOTINE DEPENDENCE, UNSPECIFIED, IN REM 07/21/2018 RANI PACHECO DO Ot J18. 9 PNEUMONIA, UNSPECIFIED ORGANISM 07/21/2018 RANI PACHECO DO Ot J44. 1 CHRONIC OBSTRUCTIVE PULMONARY DISEASE W 07/21/2018 RANI PACHECO DO Ot J96. 20 ACUTE AND CHR RESP FAILURE, UNSP W HYPOX 07/21/2018 RANI PACHECO DO Ot R91. 8 OTHER NONSPECIFIC ABNORMAL FINDING OF DAVID 07/21/2018 RANI PACHECO DO Ot Z95.828 PRESENCE OF OTHER VASCULAR IMPLANTS AND 07/21/2018 STEPHEN PRICE Ot C34.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, LEFT B 07/21/2018 STEPHEN PRICE Ot C79.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 07/21/2018 STEPHEN PRICE Ot Z01.89 ENCOUNTER FOR OTHER SPECIFIED SPECIAL EX 07/24/2018 GELLENDER DO, AMANDEEP Pineda Ot B91 SEQUELAE OF POLIOMYELITIS 07/24/2018 GELLENDER DO, AMANDEEP Pineda Ot C34.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 07/24/2018 GELLENDER DO, AMANDEEP Pineda Ot C79.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 07/24/2018 GELLENDER DO, AMANDEEP Pineda Ot D64.9 ANEMIA, UNSPECIFIED 07/24/2018 GELLENDER DO, AMANDEEP Pineda Ot E78.00 PURE HYPERCHOLESTEROLEMIA, UNSPECIFIED 07/24/2018 GELLENDER DO, AMANDEEP Pineda Ot G40.909 EPILEPSY, UNSP, NOT INTRACTABLE, WITHOUT 07/24/2018 GELLENDER DO, AMANDEEP Pineda Ot G47.30 SLEEP APNEA, UNSPECIFIED 07/24/2018 GELLENDER DO, AMANDEEP Pineda Ot G62.9 POLYNEUROPATHY, UNSPECIFIED 07/24/2018 GELLENDER DO, AMANDEEP Pineda Ot G81.94 HEMIPLEGIA, UNSPECIFIED AFFECTING LEFT N 07/24/2018 [facility] AM[facility] Pineda Ot I10 ESSENTIAL (PRIMARY) HYPERTENSION 07/24/2018 GELLENDER DO, AMANDEEP Pineda Ot J18.1 LOBAR PNEUMONIA, UNSPECIFIED ORGANISM 07/24/2018 GELLENDER DO, AMANDEEP Pineda Ot J30.2 OTHER SEASONAL ALLERGIC RHINITIS 07/24/2018 [facility] AMANDEEP Pineda Ot J44.0 CHRONIC OBSTRUCTIVE PULMON DISEASE W ACU 07/24/2018 GELLENDER DO, AMANDEEP Pineda Ot J44.1 CHRONIC OBSTRUCTIVE PULMONARY DISEASE W 07/24/2018 GELLENDER DO, AMANDEEP Pineda Ot J98.09 OTHER DISEASES OF BRONCHUS, NOT ELSEWHER 07/24/2018 GELLENDER DO, AMANDEEP Pineda Ot J98.4 OTHER DISORDERS OF LUNG 07/24/2018 GELLENDER DO, AMANDEEP Pineda Ot M19.91 PRIMARY OSTEOARTHRITIS, UNSPECIFIED SITE 07/24/2018 GELLENDER DO, AMANDEEP Pineda Ot R01.1 CARDIAC MURMUR, UNSPECIFIED 07/24/2018 GELLENDER DO, AMANDEEP Pineda Ot R29.6 REPEATED FALLS 07/24/2018 GELLENDER DO, AMANDEEP Pineda Ot R42 DIZZINESS AND GIDDINESS 07/24/2018 GELLENDER DO, AMANDEEP Pineda Ot R47.81 SLURRED SPEECH 07/24/2018 GELLENDER DO, AMANDEEP Pineda Ot R53.1 WEAKNESS 07/24/2018 [place] LASSITER, AMANDEEP Pineda Ot Z79.52 [facility] (CURRENT) USE OF SYSTEMIC STER 07/24/2018 [place] LASSITER, AMANDEEP Pineda Ot Z79.899 OTHER [facility] (CURRENT) DRUG THERAPY 07/24/2018 [place] LASSITER, AMANDEEP Pineda Ot Z87.891 PERSONAL HISTORY OF NICOTINE DEPENDENCE 07/24/2018 [place] LASSITER, AMANDEEP Pineda Ot Z91.19 PATIENT'S NONCOMPLIANCE W [facility] MEDICAL TR 07/24/2018 [place] LASSITER, AMANDEEP Miriam Ot Z99.81 DEPENDENCE ON SUPPLEMENTAL OXYGEN 07/26/2018 DEESTEPHEN Ot C34.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, LEFT B 07/26/2018 STEPHEN PRICE Ot C79.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 07/26/2018 DEESABASAN N Ot D64.9 ANEMIA, UNSPECIFIED 07/26/2018 DEE, BOBAN N Ot E78.5 HYPERLIPIDEMIA, UNSPECIFIED 07/26/2018 DEE BOBAN N Ot G40.909 EPILEPSY, UNSP, NOT INTRACTABLE, WITHOUT 07/26/2018 DEE, BOBAN N Ot J43.9 EMPHYSEMA, UNSPECIFIED 07/26/2018 DEE, BOBAN N Ot Z51.11 ENCOUNTER FOR ANTINEOPLASTIC CHEMOTHERAP 07/26/2018 STEPHEN PRICE N Ot Z79.899 OTHER [facility] (CURRENT) DRUG THERAPY 07/26/2018 STEPHEN PRICE N Ot Z87.891 PERSONAL HISTORY OF NICOTINE DEPENDENCE 07/27/2018 STEPHEN PRICE Ot C34.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, LEFT B 07/27/2018 STEPHEN PRICE N Ot C79.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 07/27/2018 DEE BOBAN N Ot D64.9 ANEMIA, UNSPECIFIED 07/27/2018 DEE, BOBAN N Ot E78.5 HYPERLIPIDEMIA, UNSPECIFIED 07/27/2018 DEE, BOBAN N Ot G40.909 EPILEPSY, UNSP, NOT INTRACTABLE, WITHOUT 07/27/2018 DEE, BOBAN N Ot J43.9 EMPHYSEMA, UNSPECIFIED 07/27/2018 DEE BOBAN N Ot Z51.11 ENCOUNTER FOR ANTINEOPLASTIC CHEMOTHERAP 07/27/2018 STEPHEN PRICE N Ot Z79.899 OTHER [facility] (CURRENT) DRUG THERAPY 07/27/2018 STEPHEN PRICE Ot Z87.891 PERSONAL HISTORY OF NICOTINE DEPENDENCE 07/27/2018 STEPHEN PRICE Flavio Ot C34.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, LEFT B 07/27/2018 STEPHEN PRICE Flavio Ot C79.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 07/27/2018 STEPHEN PRICE Flavio Ot D64.9 ANEMIA, UNSPECIFIED 07/27/2018 STEPHEN PRICE Flavio Ot E78.5 HYPERLIPIDEMIA, UNSPECIFIED 07/27/2018 STEPHEN PRICE Flavio Ot G40.909 EPILEPSY, UNSP, NOT INTRACTABLE, WITHOUT 07/27/2018 STEPHEN PRICE Flavio Ot J43.9 EMPHYSEMA, UNSPECIFIED 07/27/2018 STEPHEN PRICE Flavio Ot Z51.11 ENCOUNTER FOR ANTINEOPLASTIC CHEMOTHERAP 07/27/2018 STEPHEN PRICE Flavio Ot Z79.899 OTHER [facility] (CURRENT) DRUG THERAPY 07/27/2018 STEPHEN PRICE N Ot Z87.891 PERSONAL HISTORY OF NICOTINE DEPENDENCE 08/04/2018 STEPHEN PRICE Flavio Ot C34.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, LEFT B 08/04/2018 STEPHEN PRICE Flavio Ot C79.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 08/04/2018 STEPHEN PRICE Flavio Ot Z01.89 ENCOUNTER FOR OTHER SPECIFIED SPECIAL EX 08/10/2018 RANI PACHECO DO Ot F17.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, UNSPECIFIED, UNCOMP 08/10/2018 RANI PACHECO DO Ot J96. 21 ACUTE AND CHRONIC RESPIRATORY FAILURE WI 08/10/2018 RANI PACHECO DO, Ot R22. 0 LOCALIZED SWELLING, MASS AND LUMP, HEAD 08/10/2018 RANI PACHECO DO Ot Z99. 81 DEPENDENCE ON SUPPLEMENTAL OXYGEN 08/10/2018 RANI PACHECO DO, Ot J44. 9 CHRONIC OBSTRUCTIVE PULMONARY DISEASE, U 08/10/2018 RANI PACHECO DO, Ot M25.559 PAIN IN UNSPECIFIED HIP 08/10/2018 RANI PACHECO DO Ot R91. 8 OTHER NONSPECIFIC ABNORMAL FINDING OF DAVID 08/10/2018 RANI PACHEOC DO Ot Z72. 0 TOBACCO USE 08/10/2018 STEPHEN PRICE Ot J43.9 EMPHYSEMA, UNSPECIFIED 08/10/2018 DEESTEPHEN PATRICIO Flavio Ot R91.1 SOLITARY PULMONARY NODULE 08/10/2018 SIVA RESENDIZ WIDE AREA NETWORK 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 Ot C34.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, LEFT B 08/10/2018 SIVA RESEND[employer] NETWORK 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 Ot C79.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 08/10/2018 SIVA RESENDIZ W[employer]A NETWORK 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 Ot C34.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, LEFT B 08/10/2018 SIVA RESENDIZ WIDE AREA NETWORK 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 Ot C79.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 08/10/2018 STEPHEN PRICE Flavio Ot C34.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, LEFT B 08/10/2018 STEPHEN PRICE Flavio Ot C79.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 08/10/2018 DEESTEPHEN PATRICIO Flavio Ot Z01.89 ENCOUNTER FOR OTHER SPECIFIED SPECIAL EX 08/10/2018 RANI PACHECO DO, Ot C34. 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, LEFT B 08/10/2018 RANI PACHECO DO, Ot F17.201 NICOTINE DEPENDENCE, UNSPECIFIED, IN REM 08/10/2018 RANI PACHECO DO, Ot J18. 9 PNEUMONIA, UNSPECIFIED ORGANISM 08/10/2018 RNAI PACHECO DO, Ot J44. 1 CHRONIC OBSTRUCTIVE PULMONARY DISEASE W 08/10/2018 RANI PACHECO DO, Ot J96. 20 ACUTE AND CHR RESP FAILURE, UNSP W HYPOX 08/10/2018 RANI PACHECO DO Ot R91. 8 OTHER NONSPECIFIC ABNORMAL FINDING OF DAVID 08/10/2018 RANI PACHECO DO Ot Z95.828 PRESENCE OF OTHER VASCULAR IMPLANTS AND 08/10/2018 AMANDEEP GENAO DO Ot 786.2 COUGH 08/10/2018 AMANDEEP GENAO DO Ot 783.21 LOSS OF WEIGHT 08/10/2018 AMANDEEP GENAO DO Ot 789.00 ABDOMINAL PAIN, UNSPECIFIED SITE 08/10/2018 AMANDEEP GENAO DO Ot 783.21 LOSS OF WEIGHT 08/10/2018 AMANDEEP GENAO DO Ot 789.00 ABDOMINAL PAIN, UNSPECIFIED SITE 08/10/2018 AMANDEEP GENAO DO Ot 272.4 HYPERLIPIDEMIA NEC/NOS 08/10/2018 AMANDEEP GENAO DO Ot 496 CHR AIRWAY OBSTRUCT NEC 08/10/2018 AMANDEEP GENAO DO Ot 780.39 OTHER CONVULSIONS 08/10/2018 GELLENDER DO, AMANDEEP Pineda Ot 729.81 SWELLING OF LIMB 08/10/2018 [facility] AMAN[facility] Pineda Ot 780.79 OTH MALAISE FATIGUE 08/10/2018 GABRIELLE RIOS, YELITZA Marie Ot 780.3 9 OTHER CONVULSIONS 08/10/2018 [facility] AMANDEEP Pineda Ot 825.25 FX METATARSAL-CLOSED 08/10/2018 [facility] , AMANDEEP Pineda Ot E928.9 ACCIDENT NOS 08/10/2018 [facility] , AMANDEEP Pineda Ot 780.39 OTHER CONVULSIONS 08/10/2018 GELLENDER DO, AMANDEEP Pineda Ot 721.0 CERVICAL SPONDYLOSIS 08/10/2018 [facility] , AMANDEEP Pineda Ot 496 CHR AIRWAY OBSTRUCT NEC 08/10/2018 [facility], AMANDEEP Pineda Ot 780.39 OTHER CONVULSIONS 08/10/2018 [facility] AMANDEEP Pineda Ot E78.5 HYPERLIPIDEMIA, UNSPECIFIED 08/10/2018 [facility] , AMANDEEP Pineda Ot J44.9 CHRONIC OBSTRUCTIVE PULMONARY DISEASE, U 08/10/2018 GELLENDER , AMANDEEP Pineda Ot M79.672 PAIN IN LEFT FOOT 08/10/2018 [facility], AMANDEEP Pineda Ot R56.9 UNSPECIFIED CONVULSIONS 08/10/2018 [facility] , AMANDEEP Pineda Ot Z87.81 PERSONAL HISTORY OF (HEALED) TRAUMATIC F 08/10/2018 [place] , AMANDEEP Pineda Ot E78.5 HYPERLIPIDEMIA, UNSPECIFIED 08/10/2018 GELLENDER DO, AMANDEEP Pineda Ot R56.9 UNSPECIFIED CONVULSIONS 08/10/2018 [facility], AMANDEEP Pineda Ot J44.9 CHRONIC OBSTRUCTIVE PULMONARY DISEASE, U 08/10/2018 GELLENDER DO, AMANEDEP Pineda Ot R63.4 ABNORMAL WEIGHT LOSS 08/10/2018 GELLENDER DO, AMANDEEP Pineda Ot R63.4 ABNORMAL WEIGHT LOSS 08/10/2018 GELLENDER DO, AMANDEEP Pineda Ot G40.909 EPILEPSY, UNSP, NOT INTRACTABLE, WITHOUT 08/10/2018 GELLENDER DO, AMANDEEP Pineda Ot J34.89 OTHER SPECIFIED DISORDERS OF NOSE AND NA 08/10/2018 [facility], AMANDEEP Pineda Ot S99.912A UNSPECIFIED INJURY OF LEFT ANKLE, INITIA 08/10/2018 GELLENDER DO, AMANDEEP Pineda Ot W19.XXXA UNSPECIFIED FALL, INITIAL ENCOUNTER 08/10/2018 AMANDEEP GENAO DO Ot Y99.8 OTHER EXTERNAL CAUSE STATUS 08/10/2018 RANI PACHECO DO Ot C34. 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, LEFT B 08/10/2018 RANI PACHECO DO Ot F17.201 NICOTINE DEPENDENCE, UNSPECIFIED, IN REM 08/10/2018 RANI PACHECO DO Ot J18. 9 PNEUMONIA, UNSPECIFIED ORGANISM 08/10/2018 RANI PACHECO DO Ot J44. 1 CHRONIC OBSTRUCTIVE PULMONARY DISEASE W 08/10/2018 RANI PACHECO DO Ot J96. 20 ACUTE AND CHR RESP FAILURE, UNSP W HYPOX 08/10/2018 RANI PACHECO DO Ot R91. 8 OTHER NONSPECIFIC ABNORMAL FINDING OF DAVID 08/10/2018 RANI PACHECO DO Ot Z95.828 PRESENCE OF OTHER VASCULAR IMPLANTS AND 08/10/2018 RANI PACHECO DO Ot C34. 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, LEFT B 08/10/2018 RANI PACHECO DO Ot F17.201 NICOTINE DEPENDENCE, UNSPECIFIED, IN REM 08/10/2018 RANI PACHECO DO Ot J18. 9 PNEUMONIA, UNSPECIFIED ORGANISM 08/10/2018 RANI PACHECO DO Ot J44. 1 CHRONIC OBSTRUCTIVE PULMONARY DISEASE W 08/10/2018 RANI PACHECO DO Ot J96. 20 ACUTE AND CHR RESP FAILURE, UNSP W HYPOX 08/10/2018 RANI PACHECO DO M Ot R91. 8 OTHER NONSPECIFIC ABNORMAL FINDING OF DAVID 08/10/2018 RANI PACHECO DO Ot Z95.828 PRESENCE OF OTHER VASCULAR IMPLANTS AND 08/10/2018 RANI PACHECO DO Ot C34. 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, LEFT B 08/10/2018 RANI PACHECO DO Ot F17.201 NICOTINE DEPENDENCE, UNSPECIFIED, IN REM 08/10/2018 RANI PACHECO DO Ot J18. 9 PNEUMONIA, UNSPECIFIED ORGANISM 08/10/2018 RANI PACHECO DO Ot J44. 1 CHRONIC OBSTRUCTIVE PULMONARY DISEASE W 08/10/2018 RANI PACHECO DO M Ot J96. 20 ACUTE AND CHR RESP FAILURE, UNSP W HYPOX 08/10/2018 RANI PACHECO DO M Ot R91. 8 OTHER NONSPECIFIC ABNORMAL FINDING OF DAVID 08/10/2018 RANI PACHECO DO Ot Z95.828 PRESENCE OF OTHER VASCULAR IMPLANTS AND 08/10/2018 SIVA RESENDIZ Ot C34.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, LEFT B 08/10/2018 SIVA RESENDIZP Ot C79.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 08/11/2018 RANI PACHECO DO Ot C34. 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, LEFT B 08/11/2018 RANI PACHECO DO Ot F17.201 NICOTINE DEPENDENCE, UNSPECIFIED, IN REM 08/11/2018 RANI PACHECO DO Ot J18. 9 PNEUMONIA, UNSPECIFIED ORGANISM 08/11/2018 RANI PACHECO DO, Ot J44. 1 CHRONIC OBSTRUCTIVE PULMONARY DISEASE W 08/11/2018 RANI PACHECO DO Ot J96. 20 ACUTE AND CHR RESP FAILURE, UNSP W HYPOX 08/11/2018 RANI PACHECO DO Ot R91. 8 OTHER NONSPECIFIC ABNORMAL FINDING OF DAVID 08/11/2018 RANI PACHECO DO Ot Z95.828 PRESENCE OF OTHER VASCULAR IMPLANTS AND 08/12/2018 NESTOR AVILEZ Ot E78.00 PURE HYPERCHOLESTEROLEMIA, UNSPECIFIED 08/12/2018 NESTOR AVILEZ Ot G40.909 EPILEPSY, UNSP, NOT INTRACTABLE, WITHOUT 08/12/2018 NESTOR AVILEZ Ot G62.9 POLYNEUROPATHY, UNSPECIFIED 08/12/2018 NESTOR AVILEZ Ot G89.29 OTHER CHRONIC PAIN 08/12/2018 NESTOR AVILEZ Ot H92.02 OTALGIA, LEFT EAR 08/12/2018 NESTOR AVILEZ Ot I10 ESSENTIAL (PRIMARY) HYPERTENSION 08/12/2018 NESTOR AVILEZ Ot J44.9 CHRONIC OBSTRUCTIVE PULMONARY DISEASE, U 08/12/2018 NESTOR AVILEZ Ot Z79.51 [facility]MENT [employer]H[employer] (CURRENT) USE OF INHALED STERO 08/12/2018 NESTOR AVILEZ Ot Z82.49 FAMILY HX OF ISCHEM HEART DIS AND OTH DI 08/12/2018 NESTOR AVILEZ Ot Z85.118 PERSONAL HISTORY OF MALIGNANT NEOPLASM O 08/12/2018 NESTOR AVILEZ Ot Z86.12 PERSONAL HISTORY OF POLIOMYELITIS 08/12/2018 NESTOR AVILEZ Ot Z87.01 PERSONAL HISTORY OF PNEUMONIA (RECURRENT 08/12/2018 NESTOR AVILEZ Ot Z87.891 PERSONAL HISTORY OF NICOTINE DEPENDENCE 08/12/2018 NESTOR AVILEZ Ot Z88.6 ALLERGY STATUS TO ANALGESIC AGENT STATUS 08/12/2018 NESTOR AVILEZ Ot Z92.21 PERSONAL HISTORY OF ANTINEOPLASTIC CHEMO 08/12/2018 NESTOR AVILEZ Ot Z98.890 OTHER SPECIFIED POSTPROCEDURAL STATES 08/14/2018 NESTOR AVILEZ Ot E78.00 PURE HYPERCHOLESTEROLEMIA, UNSPECIFIED 08/14/2018 NESTOR AVILEZ Ot G40.909 EPILEPSY, UNSP, NOT INTRACTABLE, WITHOUT 08/14/2018 NESTOR AVILEZ Ot G62.9 POLYNEUROPATHY, UNSPECIFIED 08/14/2018 NESTOR AVILEZ Ot G89.29 OTHER CHRONIC PAIN 08/14/2018 NESTOR AVILEZ Ot H92.02 OTALGIA, LEFT EAR 08/14/2018 NESTOR AVILEZ Ot I10 ESSENTIAL (PRIMARY) HYPERTENSION 08/14/2018 NESTOR AVILEZ Ot J44.9 CHRONIC OBSTRUCTIVE PULMONARY DISEASE, U 08/14/2018 NESTOR AVILEZ Ot Z79.51 [facility] (CURRENT) USE OF INHALED STERO 08/14/2018 NESTOR AVILEZ Ot Z82.49 FAMILY HX OF ISCHEM HEART DIS AND OTH DI 08/14/2018 NESTOR AVILEZ Ot Z85.118 PERSONAL HISTORY OF MALIGNANT NEOPLASM O 08/14/2018 NESTOR AVILEZ Ot Z86.12 PERSONAL HISTORY OF POLIOMYELITIS 08/14/2018 NESTOR AVILEZ Ot Z87.01 PERSONAL HISTORY OF PNEUMONIA (RECURRENT 08/14/2018 NESTOR AVILEZ Ot Z87.891 PERSONAL HISTORY OF NICOTINE DEPENDENCE 08/14/2018 NESTOR AVILEZ Ot Z88.6 ALLERGY STATUS TO ANALGESIC AGENT STATUS 08/14/2018 NESTOR AVILEZ Ot Z92.21 PERSONAL HISTORY OF ANTINEOPLASTIC CHEMO 08/14/2018 NESTOR AVILEZ Ot Z98.890 OTHER SPECIFIED POSTPROCEDURAL STATES 08/19/2018 STEPHEN PRICE Ot C34.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, LEFT B 08/19/2018 STEPHEN PRICE Ot C79.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 08/19/2018 STEPHEN PRICE Ot E78.5 HYPERLIPIDEMIA, UNSPECIFIED 08/19/2018 STEPHEN PRICE Ot G40.909 EPILEPSY, UNSP, NOT INTRACTABLE, WITHOUT 08/19/2018 STEPHEN PRICE Ot J43.9 EMPHYSEMA, UNSPECIFIED 08/19/2018 STEPHEN PRICE Ot Z51.11 ENCOUNTER FOR ANTINEOPLASTIC CHEMOTHERAP 08/19/2018 STEPHEN PRICE Ot Z79.899 OTHER [facility] (CURRENT) DRUG THERAPY 08/19/2018 STEPHEN PRICE Ot Z87.891 PERSONAL HISTORY OF NICOTINE DEPENDENCE 09/04/2018 MARY RIOS, STEFAN Zuniga Ot E78.00 PURE HYPERCHOLESTEROLEMIA, UNSPECIFIED 09/04/2018 STEFAN HERNANDEZ MD, Ot G14 POSTPOLIO SYNDROME 09/04/2018 STEFAN HERNANDEZ MD, Ot G40.909 EPILEPSY, UNSP, NOT INTRACTABLE, WITHOUT 09/04/2018 STEFAN HERNANDEZ MD Ot G47.30 SLEEP APNEA, UNSPECIFIED 09/04/2018 STEFAN HERNANDEZ MD, Ot G62.9 POLYNEUROPATHY, UNSPECIFIED 09/04/2018 STEFAN HERNANDEZ MD, Ot I10 ESSENTIAL (PRIMARY) HYPERTENSION 09/04/2018 STEFAN HERNANDEZ MD, Ot J44.1 CHRONIC OBSTRUCTIVE PULMONARY DISEASE W 09/04/2018 STEFAN HERNANDEZ MD, Ot S09.90XA UNSPECIFIED INJURY OF HEAD, INITIAL ENCO 09/04/2018 STEFAN HERNANDEZ MD, Ot S90.812A ABRASION, LEFT FOOT, INITIAL ENCOUNTER 09/04/2018 MARY RIOS, STEFAN Zuniga Ot W01.190A FALL SAME LEV FROM SLIP/TRIP W STRIKE AG 09/04/2018 STEFAN HERNANDEZ MD, Ot Y92.[address] [facility] NON-INSTITUT (PRIVATE 09/04/2018 STEFAN HERNANDEZ MD, Ot Z23 ENCOUNTER FOR IMMUNIZATION 09/04/2018 STEFAN HERNANDEZ MD, Ot Z79.51 [facility] (CURRENT) USE OF INHALED STERO 09/04/2018 STEFAN HERNANDEZ MD, Ot Z82.49 FAMILY HX OF ISCHEM HEART DIS AND OTH DI 09/04/2018 MARY RIOS, STEFAN Zuniga Ot Z85.118 PERSONAL HISTORY OF MALIGNANT NEOPLASM O 09/04/2018 MARY RIOS, STEFAN Zuniga Ot Z87.01 PERSONAL HISTORY OF PNEUMONIA (RECURRENT 09/04/2018 MARY RIOS, STEFAN Zuniga Ot Z87.891 PERSONAL HISTORY OF NICOTINE DEPENDENCE 09/04/2018 STEFAN HERNANDEZ MD Ot Z88.6 ALLERGY STATUS TO ANALGESIC AGENT STATUS 09/04/2018 MARY RIOS, STEFAN Zuniga Ot Z92.21 PERSONAL HISTORY OF ANTINEOPLASTIC CHEMO 09/04/2018 MARY RIOS, STEFAN Zuniga Ot Z98.890 OTHER SPECIFIED POSTPROCEDURAL STATES 09/04/2018 MARY RIOS, STEFAN Zuniga Ot Z99.81 DEPENDENCE ON SUPPLEMENTAL OXYGEN 09/07/2018 [facility], AMANDEEP Pineda Ot C79.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 09/07/2018 [facility] Ot E78.00 PURE HYPERCHOLESTEROLEMIA, UNSPECIFIED 09/07/2018 [facility] Ot E87.1 HYPO-OSMOLALITY AND HYPONATREMIA 09/07/2018 [facility] Ot G14 POSTPOLIO SYNDROME 09/07/2018 [facility] Ot G40.909 EPILEPSY, UNSP, NOT INTRACTABLE, WITHOUT 09/07/2018 [facility] Ot G47.30 SLEEP APNEA, UNSPECIFIED 09/07/2018 [facility] Ot G62.9 POLYNEUROPATHY, UNSPECIFIED 09/07/2018 [facility] Ot I10 ESSENTIAL (PRIMARY) HYPERTENSION 09/07/2018 [facility] Ot J44.1 CHRONIC OBSTRUCTIVE PULMONARY DISEASE W 09/07/2018 [facility] Ot M19.91 PRIMARY OSTEOARTHRITIS, UNSPECIFIED SITE 09/07/2018 [facility] AMANDEEP LASSITER Ot R01.1 CARDIAC MURMUR, UNSPECIFIED 09/07/2018 [facility] Ot R09.02 HYPOXEMIA 09/07/2018 [facility] AMANDEEP LASSITER Ot R26.2 DIFFICULTY IN WALKING, NOT ELSEWHERE CLA 09/07/2018 [facility] DO Ot R29.6 REPEATED FALLS 09/07/2018 [facility] Ot R41.82 ALTERED MENTAL STATUS, UNSPECIFIED 09/07/2018 [facility], AMANDEEP Pineda Ot R42 DIZZINESS AND GIDDINESS 09/07/2018 [facility], AMANDEEP Pineda Ot R47.81 SLURRED SPEECH 09/07/2018 [facility], AMANDEEP Pineda Ot R53.1 WEAKNESS 09/07/2018 [facility], AMANDEEP Pineda Ot S09.90XA UNSPECIFIED INJURY OF HEAD, INITIAL ENCO 09/07/2018 [facility] , AMANDEEP Pineda Ot S90.812A ABRASION, LEFT FOOT, INITIAL ENCOUNTER 09/07/2018 [facility], AMANDEEP Pineda Ot W01.190A FALL SAME LEV FROM SLIP/TRIP W STRIKE AG 09/07/2018 [facility] , AMANDEEP Pineda Ot Y92.009 [facility] PLACE IN [facility] NON-INSTITUT (PRIVATE 09/07/2018 [place] , AMANDEEP Pineda Ot Z85.118 PERSONAL HISTORY OF MALIGNANT NEOPLASM O 09/07/2018 [facility] Ot Z87.01 PERSONAL HISTORY OF PNEUMONIA (RECURRENT 09/07/2018 [facility], AMANDEEP Miriam Ot Z87.891 PERSONAL HISTORY OF NICOTINE DEPENDENCE 09/07/2018 [facility] Miriam Ot Z92.21 PERSONAL HISTORY OF ANTINEOPLASTIC CHEMO 09/07/2018 [facility], AMANDEEP Miriam Ot Z99.81 DEPENDENCE ON SUPPLEMENTAL OXYGEN 09/08/2018 MARY RIOS, STEFAN Zuniga Ot E78.00 PURE HYPERCHOLESTEROLEMIA, UNSPECIFIED 09/08/2018 MARY RIOS, STEFAN Zuniga Ot G14 POSTPOLIO SYNDROME 09/08/2018 MARY RIOS, STEFAN Zuniga Ot G40.909 EPILEPSY, UNSP, NOT INTRACTABLE, WITHOUT 09/08/2018 MARY RIOS, STEFAN Zuniga Ot G47.30 SLEEP APNEA, UNSPECIFIED 09/08/2018 MARY RIOS, STEFAN Zuniga Ot G62.9 POLYNEUROPATHY, UNSPECIFIED 09/08/2018 MARY RIOS, STEFAN Zuniga Ot I10 ESSENTIAL (PRIMARY) HYPERTENSION 09/08/2018 MARY RIOS, STEFAN Zuniga Ot J44.1 CHRONIC OBSTRUCTIVE PULMONARY DISEASE W 09/08/2018 MARY RIOS, STEFAN Zuniga Ot S09.90XA UNSPECIFIED INJURY OF HEAD, INITIAL ENCO 09/08/2018 STEFAN HERNANDEZ MD, Ot S90.812A ABRASION, LEFT FOOT, INITIAL ENCOUNTER 09/08/2018 STEFAN HERNANDEZ MD, Ot W01.190A FALL SAME LEV FROM SLIP/TRIP W STRIKE AG 09/08/2018 STEFAN HERNANDEZ MD, Ot Y92.[address] [facility] NON-INSTITUT (PRIVATE 09/08/2018 STEFAN HERNANDEZ MD, Ot Z23 ENCOUNTER FOR IMMUNIZATION 09/08/2018 STEFAN HERNANDEZ MD, Ot Z79.51 [facility] (CURRENT) USE OF INHALED STERO 09/08/2018 STEFAN HERNANDEZ MD, Ot Z82.49 FAMILY HX OF ISCHEM HEART DIS AND OTH DI 09/08/2018 STEFAN HERNANDEZ MD, Ot Z85.118 PERSONAL HISTORY OF MALIGNANT NEOPLASM O 09/08/2018 STEFAN HERNANDEZ MD, Ot Z87.01 PERSONAL HISTORY OF PNEUMONIA (RECURRENT 09/08/2018 STEFAN HERNANDEZ MD, Ot Z87.891 PERSONAL HISTORY OF NICOTINE DEPENDENCE 09/08/2018 STEFAN HERNANDEZ MD, Ot Z88.6 ALLERGY STATUS TO ANALGESIC AGENT STATUS 09/08/2018 STEFAN HERNANDEZ MD, Ot Z92.21 PERSONAL HISTORY OF ANTINEOPLASTIC CHEMO 09/08/2018 STEFAN HERNANDEZ MD, Ot Z98.890 OTHER SPECIFIED POSTPROCEDURAL STATES 09/08/2018 STEFAN HERNANDEZ MD, Ot Z99.81 DEPENDENCE ON SUPPLEMENTAL OXYGEN 09/14/2018 STEPHEN PRICE Ot C34.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, LEFT B 09/14/2018 STEPHEN PRICE Ot C79.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 09/14/2018 STEPHEN PRICE Ot E78.5 HYPERLIPIDEMIA, UNSPECIFIED 09/14/2018 STEPHEN PRICE Ot G40.909 EPILEPSY, UNSP, NOT INTRACTABLE, WITHOUT 09/14/2018 STEPHEN PRICE Ot J43.9 EMPHYSEMA, UNSPECIFIED 09/14/2018 STEPHEN PRICE Ot Z51.11 ENCOUNTER FOR ANTINEOPLASTIC CHEMOTHERAP 09/14/2018 STEPHEN PRICE Ot Z79.899 OTHER RECRUITMENT INTERNSHIP (CURRENT) DRUG THERAPY 09/14/2018 DEESTEPHEN PATRICIO Flavio Ot Z87.891 PERSONAL HISTORY OF NICOTINE DEPENDENCE 09/15/2018 NINA ANAYA [employer] PRESS TENDER Ot C34.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, LEFT B 09/15/2018 NINA ANAYA [employer] PRESS TENDER Ot F17.201 NICOTINE DEPENDENCE, UNSPECIFIED, IN REM 09/15/2018 NINA ANAYA [employer] PRESS TENDER Ot I25.10 ATHSCL HEART DISEASE OF [place] CORONARY 09/15/2018 IRMA ANAYAINE Juli [employer] PRESS TENDER Ot I70.0 ATHEROSCLEROSIS OF [place] 09/15/2018 NINA ANAYA [employer] PRESS TENDER Ot J18.9 PNEUMONIA, UNSPECIFIED ORGANISM 09/15/2018 IRMA ANAYAINE E [employer] PRESS TENDER Ot J43.9 EMPHYSEMA, UNSPECIFIED 09/15/2018 IRMA ANAYAINE E [employer] PRESS TENDER Ot J96.20 ACUTE AND CHR RESP FAILURE, UNSP W HYPOX 09/15/2018 IRMA ANAYAINE Juli [employer] PRESS TENDER Ot J98.4 OTHER DISORDERS OF LUNG 09/15/2018 IRMA ANAYAINE Juli [employer] PRESS TENDER Ot R91.8 OTHER NONSPECIFIC ABNORMAL FINDING OF [place] 09/20/2018 NINA ANAYA [employer] PRESS TENDER Ot C34.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, LEFT B 09/20/2018 NINA ANAYA [employer] PRESS TENDER Ot F17.201 NICOTINE DEPENDENCE, UNSPECIFIED, IN REM 09/20/2018 IRMA ANAYAINE Juli [employer] PRESS TENDER Ot I25.10 ATHSCL HEART DISEASE OF [place] CORONARY 09/20/2018 NINA ANAYA [employer] PRESS TENDER Ot I70.0 ATHEROSCLEROSIS OF [place] 09/20/2018 NINA ANAYA [employer] PRESS TENDER Ot J18.9 PNEUMONIA, UNSPECIFIED ORGANISM 09/20/2018 IRMA ANAYAINE Juli [employer] PRESS TENDER Ot J43.9 EMPHYSEMA, UNSPECIFIED 09/20/2018 IRMA ANAYAINE E [employer] PRESS TENDER Ot J96.20 ACUTE AND CHR RESP FAILURE, UNSP W HYPOX 09/20/2018 IRMA ANAYAINE Juli [employer] PRESS TENDER Ot J98.4 OTHER DISORDERS OF LUNG 09/20/2018 IRMA ANAYAINE Juli [employer] PRESS TENDER Ot R91.8 OTHER NONSPECIFIC ABNORMAL FINDING OF [place] 09/24/2018 DEE STEPHEN Muniz Ot C34.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, LEFT B 09/24/2018 STEPHEN PRICE Ot C79.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 09/24/2018 STEPHEN PRICE Flavio Ot E78.5 HYPERLIPIDEMIA, UNSPECIFIED 09/24/2018 STEPHEN PRICE Flavoi Ot G40.909 EPILEPSY, UNSP, NOT INTRACTABLE, WITHOUT 09/24/2018 STEPEHN PRICE Flavio Ot J43.9 EMPHYSEMA, UNSPECIFIED 09/24/2018 STEPHEN PRICE Flavio Ot Z51.11 ENCOUNTER FOR ANTINEOPLASTIC CHEMOTHERAP 09/24/2018 STEPHEN PRICE Flavio Ot Z79.899 OTHER RECRUITMENT INTERNSHIP (CURRENT) DRUG THERAPY 09/24/2018 STEPHEN PRICE Flavio Ot Z87.891 PERSONAL HISTORY OF NICOTINE DEPENDENCE 10/05/2018 MARY RIOS, STEFAN Zuniga Ot E78.00 PURE HYPERCHOLESTEROLEMIA, UNSPECIFIED 10/05/2018 STEFAN HERNANDEZ MD, Ot G40.909 EPILEPSY, UNSP, NOT INTRACTABLE, WITHOUT 10/05/2018 STEFAN HERNANDEZ MD Ot G47.30 SLEEP APNEA, UNSPECIFIED 10/05/2018 STEFAN HERNANDEZ MD Ot G62.9 POLYNEUROPATHY, UNSPECIFIED 10/05/2018 STEFAN HERNANDEZ MD Ot I10 ESSENTIAL (PRIMARY) HYPERTENSION 10/05/2018 STEFAN HERNANDEZ MD, Ot J44.1 CHRONIC OBSTRUCTIVE PULMONARY DISEASE W 10/05/2018 STEFAN HERNANDEZ MD, Ot J45.909 UNSPECIFIED ASTHMA, UNCOMPLICATED 10/05/2018 STEFAN HERNANDEZ MD Ot J96.90 RESPIRATORY FAILURE, UNSP, UNSP W HYPOXI 10/05/2018 STEFAN HERNANDEZ MD Ot R06.02 SHORTNESS OF BREATH 10/05/2018 STEFAN HERNANDEZ MD, Ot Z79.51 [facility] (CURRENT) USE OF INHALED STERO 10/05/2018 STEFAN HERNANDEZ MD, Ot Z82.49 FAMILY HX OF ISCHEM HEART DIS AND OTH DI 10/05/2018 STEFAN HERNANDEZ MD, Ot Z85.118 PERSONAL HISTORY OF MALIGNANT NEOPLASM O 10/05/2018 STEFAN HERNANDEZ MD, Ot Z87.01 PERSONAL HISTORY OF PNEUMONIA (RECURRENT 10/05/2018 MARY RIOS, STEFAN Zuniga Ot Z87.891 PERSONAL HISTORY OF NICOTINE DEPENDENCE 10/05/2018 MARY RIOS, STEFAN Zuniga Ot Z88.6 ALLERGY STATUS TO ANALGESIC AGENT STATUS 10/05/2018 MARY RIOS, STEFAN Zuniga Ot Z99.81 DEPENDENCE ON SUPPLEMENTAL OXYGEN 10/05/2018 DEE BOBAN N Ot C34.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, LEFT B 10/05/2018 DEE, BOBAN N Ot C79.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 10/05/2018 DEE, BOBAN N Ot E78.5 HYPERLIPIDEMIA, UNSPECIFIED 10/05/2018 DEE, BOBAN N Ot G40.909 EPILEPSY, UNSP, NOT INTRACTABLE, WITHOUT 10/05/2018 DEE, BOBAN N Ot J43.9 EMPHYSEMA, UNSPECIFIED 10/05/2018 DEE, BOBAN N Ot Z51.11 ENCOUNTER FOR ANTINEOPLASTIC CHEMOTHERAP 10/05/2018 DEE, BOBAN N Ot Z79.899 OTHER [facility] (CURRENT) DRUG THERAPY 10/05/2018 DEE, BOBAN N Ot Z87.891 PERSONAL HISTORY OF NICOTINE DEPENDENCE 10/08/2018 DEE, BOBAN N Ot C34.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, LEFT B 10/08/2018 DEE, BOBAN N Ot C79.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 10/08/2018 DEE, BOBAN N Ot E78.5 HYPERLIPIDEMIA, UNSPECIFIED 10/08/2018 DEE, BOBAN N Ot G40.909 EPILEPSY, UNSP, NOT INTRACTABLE, WITHOUT 10/08/2018 DEE, BOBAN N Ot J43.9 EMPHYSEMA, UNSPECIFIED 10/08/2018 DEE, BOBAN N Ot Z51.11 ENCOUNTER FOR ANTINEOPLASTIC CHEMOTHERAP 10/08/2018 DEE, BOBAN N Ot Z79.899 OTHER [facility] (CURRENT) DRUG THERAPY 10/08/2018 DEE, BOBAN N Ot Z87.891 PERSONAL HISTORY OF NICOTINE DEPENDENCE 10/10/2018 MARY RIOS, STEFAN Zuniga Ot E78.00 PURE HYPERCHOLESTEROLEMIA, UNSPECIFIED 10/10/2018 MARY RIOS, STEFAN Zuniga Ot G40.909 EPILEPSY, UNSP, NOT INTRACTABLE, WITHOUT 10/10/2018 MARY RIOS, STEFAN Zuniga Ot G47.30 SLEEP APNEA, UNSPECIFIED 10/10/2018 STEFAN HERNANDEZ MD Ot G62.9 POLYNEUROPATHY, UNSPECIFIED 10/10/2018 STEFAN HERNANDEZ MD, Ot I10 ESSENTIAL (PRIMARY) HYPERTENSION 10/10/2018 STEFAN HERNANDEZ MD Ot J44.1 CHRONIC OBSTRUCTIVE PULMONARY DISEASE W 10/10/2018 STEFAN HERNANDEZ MD, Ot J45.909 UNSPECIFIED ASTHMA, UNCOMPLICATED 10/10/2018 STEFAN HERNANDEZ MD Ot J96.90 RESPIRATORY FAILURE, UNSP, UNSP W HYPOXI 10/10/2018 STEFAN HERNANDEZ MD Ot R06.02 SHORTNESS OF BREATH 10/10/2018 STEFAN HERNANDEZ MD, Ot Z79.51 [facility] (CURRENT) USE OF INHALED STERO 10/10/2018 STEFAN HERNANDEZ MD Ot Z82.49 FAMILY HX OF ISCHEM HEART DIS AND OTH DI 10/10/2018 STEFAN HERNANDEZ MD, Ot Z85.118 PERSONAL HISTORY OF MALIGNANT NEOPLASM O 10/10/2018 STEFAN HERNANDEZ MD, Ot Z87.01 PERSONAL HISTORY OF PNEUMONIA (RECURRENT 10/10/2018 STEFAN HERNANDEZ MD, Ot Z87.891 PERSONAL HISTORY OF NICOTINE DEPENDENCE 10/10/2018 STEFAN HERNANDEZ MD, Ot Z88.6 ALLERGY STATUS TO ANALGESIC AGENT STATUS 10/10/2018 STEFAN HERNANDEZ MD Ot Z99.81 DEPENDENCE ON SUPPLEMENTAL OXYGEN 10/12/2018 STEFAN HERNANDEZ MD Ot E78.00 PURE HYPERCHOLESTEROLEMIA, UNSPECIFIED 10/12/2018 STEFAN HERNANDEZ MD Ot G40.909 EPILEPSY, UNSP, NOT INTRACTABLE, WITHOUT 10/12/2018 STEFAN HERNANDEZ MD Ot G47.30 SLEEP APNEA, UNSPECIFIED 10/12/2018 STEFAN HERNANDEZ MD, Ot G62.9 POLYNEUROPATHY, UNSPECIFIED 10/12/2018 STEFAN HERNANDEZ MD Ot I10 ESSENTIAL (PRIMARY) HYPERTENSION 10/12/2018 STEFAN HERNANDEZ MD, Ot J44.1 CHRONIC OBSTRUCTIVE PULMONARY DISEASE W 10/12/2018 MARY RIOS, STEFAN Zuniga Ot J45.909 UNSPECIFIED ASTHMA, UNCOMPLICATED 10/12/2018 STEFAN HERNANDEZ MD, Ot J96.90 RESPIRATORY FAILURE, UNSP, UNSP W HYPOXI 10/12/2018 STEFAN HERNANDEZ MD Ot R06.02 SHORTNESS OF BREATH 10/12/2018 STEFAN HERNANDEZ MD Ot Z79.51 [facility] (CURRENT) USE OF INHALED STERO 10/12/2018 STEFAN HERNANDEZ MD, Ot Z82.49 FAMILY HX OF ISCHEM HEART DIS AND OTH DI 10/12/2018 STEFAN HERNANDEZ MD, Ot Z85.118 PERSONAL HISTORY OF MALIGNANT NEOPLASM O 10/12/2018 STEFAN HERNANDEZ MD, Ot Z87.01 PERSONAL HISTORY OF PNEUMONIA (RECURRENT 10/12/2018 STEFAN HERNANDEZ MD, Ot Z87.891 PERSONAL HISTORY OF NICOTINE DEPENDENCE 10/12/2018 STEFAN HERNANDEZ MD, Ot Z88.6 ALLERGY STATUS TO ANALGESIC AGENT STATUS 10/12/2018 STEFAN HERNANDEZ MD, Ot Z99.81 DEPENDENCE ON SUPPLEMENTAL OXYGEN 10/12/2018 NINA ANAYA APRN Ot C34.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, LEFT B 10/12/2018 NINA ANAYA APRN Ot F17.201 NICOTINE DEPENDENCE, UNSPECIFIED, IN REM 10/12/2018 NINA ANAYA APRN Ot I25.10 ATHSCL HEART DISEASE OF [place] CORONARY 10/12/2018 NINA ANAYA APRN Ot I70.0 ATHEROSCLEROSIS OF [place] 10/12/2018 NINA ANAYA APRN Ot J18.9 PNEUMONIA, UNSPECIFIED ORGANISM 10/12/2018 NINA ANAYA APRN Ot J43.9 EMPHYSEMA, UNSPECIFIED 10/12/2018 NINA ANAYA APRN Ot J96.20 ACUTE AND CHR RESP FAILURE, UNSP W HYPOX 10/12/2018 NINA ANAYA APRN Ot J98.4 OTHER DISORDERS OF LUNG 10/12/2018 NINA ANAYA APRN Ot R91.8 OTHER NONSPECIFIC ABNORMAL FINDING OF DAVID 10/27/2018 NINA ANAYA PYROTECHNICS PRESS TENDER Ot C34.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, LEFT B 10/27/2018 NINA ANAYA PYROTECHNICS PRESS TENDER Ot F17.201 NICOTINE DEPENDENCE, UNSPECIFIED, IN REM 10/27/2018 NINA ANAYA PYROTECHNICS PRESS TENDER Ot I25.10 ATHSCL HEART DISEASE OF [place] CORONARY 10/27/2018 NINA ANAYA PYROTECHNICS PRESS TENDER Ot I70.0 ATHEROSCLEROSIS OF [place] 10/27/2018 NINA ANAYA PYROTECHNICS PRESS TENDER Ot J18.9 PNEUMONIA, UNSPECIFIED ORGANISM 10/27/2018 NINA ANAYA PYROTECHNICS PRESS TENDER Ot J43.9 EMPHYSEMA, UNSPECIFIED 10/27/2018 NINA ANAYA PYROTECHNICS PRESS TENDER Ot J96.20 ACUTE AND CHR RESP FAILURE, UNSP W HYPOX 10/27/2018 NINA ANAYA PYROTECHN[employer] PRESS TENDER Ot J98.4 OTHER DISORDERS OF LUNG 10/27/2018 NINA ANAYA PYROTECHN[employer] PRESS TENDER Ot R91.8 OTHER NONSPECIFIC ABNORMAL FINDING OF DAVID 11/03/2018 STEPHEN PRICE Ot C34.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, LEFT B 11/03/2018 STEPHEN PRICE Ot C79.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 11/03/2018 STEPHEN PRICE Ot E78.5 HYPERLIPIDEMIA, UNSPECIFIED 11/03/2018 STEPHEN PRICE Ot G40.909 EPILEPSY, UNSP, NOT INTRACTABLE, WITHOUT 11/03/2018 STEPHEN PRICE N Ot J43.9 EMPHYSEMA, UNSPECIFIED 11/03/2018 STEPHEN PRICE Ot Z51.11 ENCOUNTER FOR ANTINEOPLASTIC CHEMOTHERAP 11/03/2018 STEPHEN PRICE Ot Z79.899 OTHER [facility] (CURRENT) DRUG THERAPY 11/03/2018 STEPHEN PRICE Ot Z87.891 PERSONAL HISTORY OF NICOTINE DEPENDENCE 11/04/2018 STEPHEN PRICE Ot C34.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, LEFT B 11/04/2018 STEPHEN PRICE Ot C79.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 11/04/2018 STEPHEN PRICE Ot Z01.89 ENCOUNTER FOR OTHER SPECIFIED SPECIAL EX 11/09/2018 GELAMANDEEP SAUCEDO DO Ot 786.2 COUGH 11/09/2018 AMANDEEP GENAO DO Ot 783.21 LOSS OF WEIGHT 11/09/2018 GELLENDER DO, AMANDEEP Pineda Ot 789.00 ABDOMINAL PAIN, UNSPECIFIED SITE 11/09/2018 GELLENDER DO, AMANDEEP Miriam Ot 783.21 LOSS OF WEIGHT 11/09/2018 GELLENDER DO, AMANDEEP Miriam Ot 789.00 ABDOMINAL PAIN, UNSPECIFIED SITE 11/09/2018 GELLENDER DO, AMANDEEP Pineda Ot 272.4 HYPERLIPIDEMIA NEC/NOS 11/09/2018 GELLENDER DO, AMANDEEP Pineda Ot 496 CHR AIRWAY OBSTRUCT NEC 11/09/2018 GELLENDER DO, AMANDEEP Pineda Ot 780.39 OTHER CONVULSIONS 11/09/2018 GELLENDER DO, AMANDEEP Pineda Ot 729.81 SWELLING OF LIMB 11/09/2018 GELLENDER DO, AMANDEEP Pineda Ot 780.79 OTH MALAISE FATIGUE 11/09/2018 GABRIELLE RIOS, YELITZA Marie Ot 780.3 9 OTHER CONVULSIONS 11/09/2018 GELLENDER DO, AMANDEEP Pineda Ot 825.25 FX METATARSAL-CLOSED 11/09/2018 GELLENDER DO, AMANDEEP Pineda Ot E928.9 ACCIDENT NOS 11/09/2018 GELLENDER DO, AMANDEEP Pineda Ot 780.39 OTHER CONVULSIONS 11/09/2018 GELLENDER DO, AMANDEEP Pineda Ot 721.0 CERVICAL SPONDYLOSIS 11/09/2018 GELLENDER DO, AMANDEEP Pineda Ot 496 CHR AIRWAY OBSTRUCT NEC 11/09/2018 GELLENDER DO, AMANDEEP Pineda Ot 780.39 OTHER CONVULSIONS 11/09/2018 GELLENDER DO, AMANDEEP Pineda Ot E78.5 HYPERLIPIDEMIA, UNSPECIFIED 11/09/2018 GELLENDER DO, AMANDEEP Pineda Ot J44.9 CHRONIC OBSTRUCTIVE PULMONARY DISEASE, U 11/09/2018 GELLENDER DO, AMANDEEP Pineda Ot M79.672 PAIN IN LEFT FOOT 11/09/2018 GELLENDER DO, AMANDEEP Pineda Ot R56.9 UNSPECIFIED CONVULSIONS 11/09/2018 GELLENDER DO, AMANDEEP Pineda Ot Z87.81 PERSONAL HISTORY OF (HEALED) TRAUMATIC F 11/09/2018 GELLENDER DO, AMANDEEP Pineda Ot E78.5 HYPERLIPIDEMIA, UNSPECIFIED 11/09/2018 GELLENDER DO, AMANDEEP Pineda Ot R56.9 UNSPECIFIED CONVULSIONS 11/09/2018 GELLENDER DO, AMANDEEP Pineda Ot J44.9 CHRONIC OBSTRUCTIVE PULMONARY DISEASE, U 11/09/2018 GELLENDER DO, AMANDEEP Pineda Ot R63.4 ABNORMAL WEIGHT LOSS 11/09/2018 CHADWICK LASSITER, AMANDEEP Pineda Ot R63.4 ABNORMAL WEIGHT LOSS 11/09/2018 CHADWICK , AMANDEEP Miriam Ot G40.909 EPILEPSY, UNSP, NOT INTRACTABLE, WITHOUT 11/09/2018 JOSEBRAYAN AMANDEEP LASSITER Ot J34.89 OTHER SPECIFIED DISORDERS OF NOSE AND NA 11/09/2018 JOSEBRAYAN AMANDEEP LASSITER Ot S99.912A UNSPECIFIED INJURY OF LEFT ANKLE, INITIA 11/09/2018 AMANDEEP GENAO DO Ot W19.XXXA UNSPECIFIED FALL, INITIAL ENCOUNTER 11/09/2018 AMANDEEP GENAO DO Ot Y99.8 OTHER EXTERNAL CAUSE STATUS 11/09/2018 RANI PACHECO DO, Ot C34. 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 9 PNEUMONIA, UNSPECIFIED ORGANISM 11/09/2018 RANI PACHECO DO, Ot J44. 1 CHRONIC OBSTRUCTIVE PULMONARY DISEASE W 11/09/2018 RANI PACHECO DO, Ot J96. 20 ACUTE AND CHR RESP FAILURE, UNSP W HYPOX 11/09/2018 RANI PACHECO DO Ot R91. 8 OTHER NONSPECIFIC ABNORMAL FINDING OF DAVID 11/09/2018 RANI PACHECO DO Ot Z95.828 PRESENCE OF OTHER VASCULAR IMPLANTS AND 11/10/2018 KURT MOHR MD Ot 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 11/10/2018 KURT MOHR MD Ot E78.00 PURE HYPERCHOLESTEROLEMIA, UNSPECIFIED 11/10/2018 KURT MOHR MD Ot E78 .5 HYPERLIPIDEMIA, UNSPECIFIED 11/10/2018 KURT MOHR MD Ot G40.909 EPILEPSY, UNSP, NOT INTRACTABLE, WITHOUT 11/10/2018 KURT MOHR MD Ot H26 .9 UNSPECIFIED CATARACT 11/10/2018 KURT MOHR MD Ot I10 ESSENTIAL (PRIMARY) HYPERTENSION 11/10/2018 KURT MOHR MD Ot J45.909 UNSPECIFIED ASTHMA, UNCOMPLICATED 11/10/2018 KURT MOHR MD Ot Z79.899 OTHER [facility] (CURRENT) DRUG THERAPY 11/17/2018 STEPHEN PRICE Ot C34.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, LEFT B 11/17/2018 STEPHEN PRICE Ot C79.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 11/17/2018 STEPHEN PRICE Ot E78.5 HYPERLIPIDEMIA, UNSPECIFIED 11/17/2018 STEPHEN PRICE Ot G40.909 EPILEPSY, UNSP, NOT INTRACTABLE, WITHOUT 11/17/2018 STEPHEN PRICE Ot J43.9 EMPHYSEMA, UNSPECIFIED 11/17/2018 STEPHEN PRICE Ot Z51.11 ENCOUNTER FOR ANTINEOPLASTIC CHEMOTHERAP 11/17/2018 STEPHEN PRICE Ot Z79.899 OTHER [facility] (CURRENT) DRUG THERAPY 11/17/2018 STEPHEN PRICE Ot Z87.891 PERSONAL HISTORY OF NICOTINE DEPENDENCE 11/17/2018 GELLENDER DO, AMANDEEP Pineda Ot R56.9 UNSPECIFIED CONVULSIONS 11/17/2018 GELLENDER DO, AMANDEEP Pineda Ot F17.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, UNSPECIFIED, UNCOMP 11/17/2018 GELLENDER DO, AMANDEEP Pineda Ot J44.9 CHRONIC OBSTRUCTIVE PULMONARY DISEASE, U 11/17/2018 GELLENDER DO, AMANDEEP Pineda Ot R63.4 ABNORMAL WEIGHT LOSS 11/17/2018 GELLENDER DO, AMANDEEP Pineda Ot J44.9 CHRONIC OBSTRUCTIVE PULMONARY DISEASE, U 11/17/2018 GELLENDER DO, AMANDEEP Pineda Ot R63.4 ABNORMAL WEIGHT LOSS 11/17/2018 GELLENDER DO, AMANDEEP Pineda Ot R63.4 ABNORMAL WEIGHT LOSS 11/17/2018 GELLENDER DO, AMANDEEP Pineda Ot G40.909 EPILEPSY, UNSP, NOT INTRACTABLE, WITHOUT 11/17/2018 GELLENDER DOAMANDEEP Ot J44.9 CHRONIC OBSTRUCTIVE PULMONARY DISEASE, U 11/17/2018 GELLENDER DO, AMANDEEP Pineda Ot E87.1 HYPO-OSMOLALITY AND HYPONATREMIA 11/17/2018 GELLENDER DO, AMANDEEP Pineda Ot G40.909 EPILEPSY, UNSP, NOT INTRACTABLE, WITHOUT 11/17/2018 GELLENDER DO, AMANDEEP Pineda Ot J44.9 CHRONIC OBSTRUCTIVE PULMONARY DISEASE, U 11/17/2018 GELLENDER DO, AMANDEEP Pineda Ot G40.909 EPILEPSY, UNSP, NOT INTRACTABLE, WITHOUT 11/17/2018 GELLENDER DOAMANDEEP Ot J34.89 OTHER SPECIFIED DISORDERS OF NOSE AND NA 11/17/2018 AMANDEEP GENAO DO Ot S99.912A UNSPECIFIED INJURY OF LEFT ANKLE, INITIA 11/17/2018 AMANDEEP GENAO DO Ot W19.XXXA UNSPECIFIED FALL, INITIAL ENCOUNTER 11/17/2018 AMANDEEP GENAO DO Ot Y99.8 OTHER EXTERNAL CAUSE STATUS 11/17/2018 AMANDEEP GENAO DO Ot G40.909 EPILEPSY, UNSP, NOT INTRACTABLE, WITHOUT 11/17/2018 CHADWICK LASSITER AMANDEEP Pineda Ot R06.02 SHORTNESS OF BREATH 11/17/2018 CHADWICK LASSITER AMANDEEP Pineda Ot R63.4 ABNORMAL WEIGHT LOSS 11/17/2018 STEPHEN PRICE Ot J43.9 EMPHYSEMA, UNSPECIFIED 11/17/2018 STEPHEN PRICE Ot R91.1 SOLITARY PULMONARY NODULE 11/17/2018 RANI PACHECO DO Ot F17.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, UNSPECIFIED, UNCOMP 11/17/2018 RANI PACHECO DO Ot J96. 21 ACUTE AND CHRONIC RESPIRATORY FAILURE [place] 11/17/2018 RANI PACHECO DO Ot R22. 0 LOCALIZED SWELLING, MASS AND LUMP, HEAD 11/17/2018 RANI PACHECO DO Ot Z99. 81 DEPENDENCE ON SUPPLEMENTAL OXYGEN 11/17/2018 RANI PACHECO DO Ot J44. 9 CHRONIC OBSTRUCTIVE PULMONARY DISEASE, U 11/17/2018 RANI PACHECO DO Ot M25.559 PAIN IN UNSPECIFIED HIP 11/17/2018 RANI PACHECO DO Ot R91. 8 OTHER NONSPECIFIC ABNORMAL FINDING OF DAVID 11/17/2018 RANI PACHECO DO Ot Z72. 0 TOBACCO USE 11/17/2018 CHADWICK LASSITERAMANDEEP Ot J44.9 CHRONIC OBSTRUCTIVE PULMONARY DISEASE, U 11/17/2018 NINA ANAYA APRN Ot M79.604 PAIN IN RIGHT LEG 11/17/2018 NINA ANAYA APRN Ot M79.605 PAIN IN LEFT LEG 11/17/2018 NINA ANAYA APRN Ot M79.89 OTHER SPECIFIED SOFT TISSUE DISORDERS 11/17/2018 NINA ANAYA APRN Ot R91.8 OTHER NONSPECIFIC ABNORMAL FINDING OF DAVID 11/17/2018 SIVA RESENDIZ Ot C34.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, LEFT B 11/17/2018 SIVA RESENDIZ Ot C79.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 11/17/2018 AMANDEEP GENAO DO Ot B35.1 TINEA UNGUIUM 11/17/2018 SIVA RESENDIZ Ot C34.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, LEFT B 11/17/2018 SIVA RESENDIZP Ot C79.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 11/17/2018 SIVA RESENDIZP Ot C34.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, LEFT B 11/17/2018 SIVA RESENDIZP Ot C34.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, LEFT B 11/17/2018 SIVA RESENDIZ Ot C79.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 11/17/2018 AMANDEEP GENAO DO Ot M43.12 SPONDYLOLISTHESIS, CERVICAL REGION 11/17/2018 AMANDEEP GENAO DO Ot M47.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 11/17/2018 AMANDEEP GENAO DO Ot S19.9XXA UNSPECIFIED INJURY OF NECK, INITIAL ENCO 11/17/2018 SIVA RESENDIZ Ot C34.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, LEFT B 11/17/2018 SIVA RESENDIZ Ot C79.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 11/17/2018 JOSEBRAYAN AMANDEEP LASSITER Ot M19.011 PRIMARY OSTEOARTHRITIS, RIGHT SHOULDER 11/17/2018 AMANDEEP GENAO DO Ot M79.621 PAIN IN RIGHT UPPER ARM 11/17/2018 AMANDEEP GENAO DO Ot S79.911A UNSPECIFIED INJURY OF RIGHT HIP, INITIAL 11/17/2018 AMANDEEP GENAO DO Ot W19.XXXA UNSPECIFIED FALL, INITIAL ENCOUNTER 11/17/2018 AMANDEEP GENAO DO Ot R05 COUGH 11/17/2018 AMANDEEP GENAO DO Ot R91.8 OTHER NONSPECIFIC ABNORMAL FINDING OF DAVID 11/17/2018 AMANDEEP GENAO DO Ot Z95.828 PRESENCE OF OTHER VASCULAR IMPLANTS AND 11/17/2018 SIVA RESENDIZP Ot J98.11 ATELECTASIS 11/17/2018 RESENDIZSIVA Rodriguez Jennifer WIDE AREA NETWORK 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 Ot M43.12 SPONDYLOLISTHESIS, CERVICAL REGION 11/17/2018 SIVA RESENDIZ WIDE AREA NETWORK 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 Ot M47.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 11/17/2018 SIVA RESENDIZ WIDE AREA NETWORK 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 Ot S12.190A OTH DISP FX OF SECOND CERVICAL VERTEBRA, 11/17/2018 SIVA RESENDIZ WIDE AREA NETWORK 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 Ot W19.XXXA UNSPECIFIED FALL, INITIAL ENCOUNTER 11/17/2018 RESENDIZSIVA Rodriguez Jennifer WIDE AREA NETWORK 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 Ot Z95.828 PRESENCE OF OTHER VASCULAR IMPLANTS AND 11/17/2018 NINA ANAYA APRN Ot C34.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, LEFT B 11/17/2018 NINA ANAYA APRN Ot F17.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 9 PNEUMONIA, UNSPECIFIED ORGANISM 11/17/2018 RANI PACHECO DO Ot J44. 1 CHRONIC OBSTRUCTIVE PULMONARY DISEASE W 11/17/2018 RANI PACHECO DO Ot J96. 20 ACUTE AND CHR RESP FAILURE, UNSP W HYPOX 11/17/2018 RANI PACHECO DO Ot R91. 8 OTHER NONSPECIFIC ABNORMAL FINDING OF DAVID 11/17/2018 ARCELIA PACHECO DOSON M Ot Z95.828 PRESENCE OF OTHER VASCULAR IMPLANTS AND 11/17/2018 DEE BOBAN N Ot C34.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, LEFT B 11/17/2018 DEE BOBAN N Ot C79.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 11/17/2018 DEE BOBAN N Ot Z01.89 ENCOUNTER FOR OTHER SPECIFIED SPECIAL EX 11/17/2018 DEE BOBAN N Ot C34.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, LEFT B 11/17/2018 DEE, BOBAN N Ot C79.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 11/17/2018 DEE, BOBAN N Ot E78.5 HYPERLIPIDEMIA, UNSPECIFIED 11/17/2018 DEE, BOBAN N Ot G40.909 EPILEPSY, UNSP, NOT INTRACTABLE, WITHOUT 11/17/2018 DEE, BOBAN N Ot J43.9 EMPHYSEMA, UNSPECIFIED 11/17/2018 DEE, BOBAN N Ot Z51.11 ENCOUNTER FOR ANTINEOPLASTIC CHEMOTHERAP 11/17/2018 DEE, BOBAN N Ot Z79.899 OTHER [facility] (CURRENT) DRUG THERAPY 11/17/2018 DEE, BOBAN N Ot Z87.891 PERSONAL HISTORY OF NICOTINE DEPENDENCE 11/18/2018 DEE, BOBAN N Ot C34.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, LEFT B 11/18/2018 DEE, BOBAN N Ot C79.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 11/18/2018 DEE, BOBAN N Ot E78.5 HYPERLIPIDEMIA, UNSPECIFIED 11/18/2018 DEE, BOBAN N Ot G40.909 EPILEPSY, UNSP, NOT INTRACTABLE, WITHOUT 11/18/2018 DEE, BOBAN N Ot J43.9 EMPHYSEMA, UNSPECIFIED 11/18/2018 DEE, BOBAN N Ot Z51.11 ENCOUNTER FOR ANTINEOPLASTIC CHEMOTHERAP 11/18/2018 DEE, BOBAN N Ot Z79.899 OTHER [facility] (CURRENT) DRUG THERAPY 11/18/2018 DEE, BOBAN N Ot Z87.891 PERSONAL HISTORY OF NICOTINE DEPENDENCE 11/23/2018 DEE, BOBAN N Ot C34.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, LEFT B 11/23/2018 DEE, BOBAN N Ot C79.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 11/23/2018 DEE, BOBAN N Ot E78.5 HYPERLIPIDEMIA, UNSPECIFIED 11/23/2018 STEPHEN PRICE Flavio Ot G40.909 EPILEPSY, UNSP, NOT INTRACTABLE, WITHOUT 11/23/2018 STEPHEN PRICE Flavio Ot J43.9 EMPHYSEMA, UNSPECIFIED 11/23/2018 STEPHEN PRICE Flavio Ot Z51.11 ENCOUNTER FOR ANTINEOPLASTIC CHEMOTHERAP 11/23/2018 STEPHEN PRICE Flavio Ot Z79.899 OTHER [facility] (CURRENT) DRUG THERAPY 11/23/2018 STEPHEN PRICE Flavio Ot Z87.891 PERSONAL HISTORY OF NICOTINE DEPENDENCE 11/24/2018 STEPHEN PRICE Flavio Ot C34.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, LEFT B 11/24/2018 STEPHEN PRICE Flavio Ot C79.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 11/24/2018 STEPHEN PRICE Flavio Ot Z01.89 ENCOUNTER FOR OTHER SPECIFIED SPECIAL EX 11/25/2018 FAVIAN COWARTP Ot E78.00 PURE HYPERCHOLESTEROLEMIA, UNSPECIFIED 11/25/2018 SOFYA, FAVIAN [employer] 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 Ot F17.210 NICOTINE DEPENDENCE, CIGARETTES, UNCOMPL 11/25/2018 SOFYA, FAVIAN [employer] 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 Ot F17.290 NICOTINE DEPENDENCE, OTHER TOBACCO PRODU 11/25/2018 FAVIAN COWARTP Ot G40.909 EPILEPSY, UNSP, NOT INTRACTABLE, WITHOUT 11/25/2018 SOFYA FAVIAN [employer] 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 Ot G47.30 SLEEP APNEA, UNSPECIFIED 11/25/2018 SOFYA FAVIAN [employer] 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 Ot G62.9 POLYNEUROPATHY, UNSPECIFIED 11/25/2018 SOFYA, FAVIAN [employer]WORK 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 Ot I10 ESSENTIAL (PRIMARY) HYPERTENSION 11/25/2018 SOFYA FAVIAN [employer]WORK 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 Ot J06.9 ACUTE UPPER RESPIRATORY INFECTION, UNSPE 11/25/2018 FAVIAN COWARTP Ot J44.9 CHRONIC OBSTRUCTIVE PULMONARY DISEASE, U 11/25/2018 FAVIAN COWARTP Ot R05 COUGH 11/25/2018 FAVIAN COWART [employer] 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 Ot S12.100A UNSP DISP FX OF SECOND CERVICAL VERTEBRA 11/25/2018 FAVIAN COWARTP Ot W19.XXXA UNSPECIFIED FALL, INITIAL ENCOUNTER 11/25/2018 FAVIAN COWARTP Ot Z79.51 [facility] (CURRENT) USE OF INHALED STERO 11/25/2018 FAVIAN COWARTP Ot Z82.49 FAMILY HX OF ISCHEM HEART DIS AND OTH DI 11/25/2018 SOFYAFAVIAN Bustos [employer] 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 Ot Z85.118 PERSONAL HISTORY OF MALIGNANT NEOPLASM O 11/25/2018 SOFYAFAVIAN Bustos [employer]WORK 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 Ot Z87.81 PERSONAL HISTORY OF (HEALED) TRAUMATIC F 11/25/2018 SOFYA FAVIAN [employer]WORK 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 Ot Z88.6 ALLERGY STATUS TO ANALGESIC AGENT STATUS 11/27/2018 FAVIAN COWART [employer]WORK 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 Ot E78.00 PURE HYPERCHOLESTEROLEMIA, UNSPECIFIED 11/27/2018 SOFYA, FAVIAN [employer] 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 Ot F17.210 NICOTINE DEPENDENCE, CIGARETTES, UNCOMPL 11/27/2018 SOFYA, FAVIAN [employer] 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 Ot F17.290 NICOTINE DEPENDENCE, OTHER TOBACCO PRODU 11/27/2018 SOFYA, FAVIAN [employer] 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 Ot G40.909 EPILEPSY, UNSP, NOT INTRACTABLE, WITHOUT 11/27/2018 SOFYA, FAVIAN [employer] 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 Ot G47.30 SLEEP APNEA, UNSPECIFIED 11/27/2018 SOFYA, FAVIAN [employer] 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 Ot G62.9 POLYNEUROPATHY, UNSPECIFIED 11/27/2018 SOFYA, FAVIAN [employer]WORK 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 Ot I10 ESSENTIAL (PRIMARY) HYPERTENSION 11/27/2018 SOFYA, FAVIAN [employer]WORK 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 Ot J06.9 ACUTE UPPER RESPIRATORY INFECTION, UNSPE 11/27/2018 SOFYA, FAVIAN [employer] 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 Ot J44.9 CHRONIC OBSTRUCTIVE PULMONARY DISEASE, U 11/27/2018 FAVIAN COWART [employer]WORK 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 Ot R05 COUGH 11/27/2018 SOFYA, FAVIAN [employer]WORK 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 Ot S12.100A UNSP DISP FX OF SECOND CERVICAL VERTEBRA 11/27/2018 SOFYA, FAVIAN [employer]WORK 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 Ot W19.XXXA UNSPECIFIED FALL, INITIAL ENCOUNTER 11/27/2018 FAVIAN COWART [employer] 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 Ot Z79.51 [facility] (CURRENT) USE OF INHALED STERO 11/27/2018 FAVIAN COWART [employer]WORK 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 Ot Z82.49 FAMILY HX OF ISCHEM HEART DIS AND OTH DI 11/27/2018 SOFYAFAVIAN Bustos [employer] 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 Ot Z85.118 PERSONAL HISTORY OF MALIGNANT NEOPLASM O 11/27/2018 FAVIAN COWART [employer]WORK 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 Ot Z87.81 PERSONAL HISTORY OF (HEALED) TRAUMATIC F 11/27/2018 SOFYA FAVIAN [employer] 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 Ot Z88.6 ALLERGY STATUS TO ANALGESIC AGENT STATUS 12/01/2018 MARY RIOS, STEFAN Zuniga Ot C34.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 12/01/2018 STEFAN HERNANDEZ MD Ot E78.00 PURE HYPERCHOLESTEROLEMIA, UNSPECIFIED 12/01/2018 STEFAN HERNANDEZ MD Ot G40.909 EPILEPSY, UNSP, NOT INTRACTABLE, WITHOUT 12/01/2018 STEFAN HERNANDEZ MD Ot G47.30 SLEEP APNEA, UNSPECIFIED 12/01/2018 STEFAN HERNANDEZ MD Ot G62.9 POLYNEUROPATHY, UNSPECIFIED 12/01/2018 STEFAN HERNANDEZ MD Ot I10 ESSENTIAL (PRIMARY) HYPERTENSION 12/01/2018 STEFAN HERNANDEZ MD Ot J44.1 CHRONIC OBSTRUCTIVE PULMONARY DISEASE W 12/01/2018 STEFAN HERNANDEZ MD, Ot J45.909 UNSPECIFIED ASTHMA, UNCOMPLICATED 12/01/2018 STEFAN HERNANDEZ MD Ot R06.02 SHORTNESS OF BREATH 12/01/2018 STEFAN HERNANDEZ MD Ot R06.03 ACUTE RESPIRATORY DISTRESS 12/01/2018 STEFAN HERNANDEZ MD Ot Z82.49 FAMILY HX OF ISCHEM HEART DIS AND OTH DI 12/01/2018 STEFAN HERNANDEZ MD Ot Z86.12 PERSONAL HISTORY OF POLIOMYELITIS 12/01/2018 STEFAN HERNANDEZ MD Ot Z87.891 PERSONAL HISTORY OF NICOTINE DEPENDENCE 12/01/2018 STEFAN HERNANDEZ MD, Ot Z88.6 ALLERGY STATUS TO ANALGESIC AGENT STATUS 12/01/2018 STEFAN HERNANDEZ MD Ot Z99.81 DEPENDENCE ON SUPPLEMENTAL OXYGEN 12/04/2018 STEFAN HERNANDEZ MD Ot C34.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 12/04/2018 STEFAN HERNANDEZ MD Ot E78.00 PURE HYPERCHOLESTEROLEMIA, UNSPECIFIED 12/04/2018 STEFAN HERNANDEZ MD Ot G40.909 EPILEPSY, UNSP, NOT INTRACTABLE, WITHOUT 12/04/2018 STEFAN HERNANDEZ MD Ot G47.30 SLEEP APNEA, UNSPECIFIED 12/04/2018 STEFAN HERNANDEZ MD Ot G62.9 POLYNEUROPATHY, UNSPECIFIED 12/04/2018 STEFAN HERNANDEZ MD Ot I10 ESSENTIAL (PRIMARY) HYPERTENSION 12/04/2018 MARY RIOS, STEFAN Zuniga Ot J44.1 CHRONIC OBSTRUCTIVE PULMONARY DISEASE W 12/04/2018 STEFAN HERNANDEZ MD, Ot J45.909 UNSPECIFIED ASTHMA, UNCOMPLICATED 12/04/2018 STEFAN HERNANDEZ MD Ot R06.02 SHORTNESS OF BREATH 12/04/2018 STEFAN HERNANDEZ MD, Ot R06.03 ACUTE RESPIRATORY DISTRESS 12/04/2018 STEFAN HERNANDEZ MD, Ot Z82.49 FAMILY HX OF ISCHEM HEART DIS AND OTH DI 12/04/2018 STEFAN HERNANDEZ MD, Ot Z86.12 PERSONAL HISTORY OF POLIOMYELITIS 12/04/2018 STEFAN HERNANDEZ MD, Ot Z87.891 PERSONAL HISTORY OF NICOTINE DEPENDENCE 12/04/2018 STEFAN HERNANDEZ MD Ot Z88.6 ALLERGY STATUS TO ANALGESIC AGENT STATUS 12/04/2018 STEFAN HERNANDEZ MD Ot Z99.81 DEPENDENCE ON SUPPLEMENTAL OXYGEN 12/10/2018 STEPHEN PRICE Ot C34.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, LEFT B 12/10/2018 STEPHEN PRICE Ot C79.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 12/10/2018 STEPHEN PRICE Ot E78.5 HYPERLIPIDEMIA, UNSPECIFIED 12/10/2018 STEPHEN PRICE Ot G40.909 EPILEPSY, UNSP, NOT INTRACTABLE, WITHOUT 12/10/2018 STEPHEN PRICE Ot J43.9 EMPHYSEMA, UNSPECIFIED 12/10/2018 STEPHEN PRICE Ot Z51.11 ENCOUNTER FOR ANTINEOPLASTIC CHEMOTHERAP 12/10/2018 STEPHEN PRICE Ot Z79.899 OTHER [facility] (CURRENT) DRUG THERAPY 12/10/2018 STEPHEN PRICE Ot Z87.891 PERSONAL HISTORY OF NICOTINE DEPENDENCE 01/09/2019 FAVIAN COWART Ot E78.00 PURE HYPERCHOLESTEROLEMIA, UNSPECIFIED 01/09/2019 FAVIAN COWART Ot F17.210 NICOTINE DEPENDENCE, CIGARETTES, UNCOMPL 01/09/2019 FAVIAN COWART Ot F17.290 NICOTINE DEPENDENCE, OTHER TOBACCO PRODU 01/09/2019 FAVIAN COWART Ot G40.909 EPILEPSY, UNSP, NOT INTRACTABLE, WITHOUT 01/09/2019 FAVIAN COWARTP Ot G47.30 SLEEP APNEA, UNSPECIFIED 01/09/2019 FAVIAN COWARTP Ot G62.9 POLYNEUROPATHY, UNSPECIFIED 01/09/2019 FAVIAN COWARTP Ot I10 ESSENTIAL (PRIMARY) HYPERTENSION 01/09/2019 FAVIAN COWARTP Ot J06.9 ACUTE UPPER RESPIRATORY INFECTION, UNSPE 01/09/2019 FAVIAN COWARTP Ot J44.9 CHRONIC OBSTRUCTIVE PULMONARY DISEASE, U 01/09/2019 FAVIAN COWARTP Ot R05 COUGH 01/09/2019 FAVIAN COWARTP Ot S12.100A UNSP DISP FX OF SECOND CERVICAL VERTEBRA 01/09/2019 FAVIAN COWART Ot W19.XXXA UNSPECIFIED FALL, INITIAL ENCOUNTER 01/09/2019 FAVIAN COWART Ot Z79.51 [facility] (CURRENT) USE OF INHALED STERO 01/09/2019 FAVIAN COWARTP Ot Z82.49 FAMILY HX OF ISCHEM HEART DIS AND OTH DI 01/09/2019 FAVIAN COWARTP Ot Z85.118 PERSONAL HISTORY OF MALIGNANT NEOPLASM O 01/09/2019 FAVIAN COWARTP Ot Z87.81 PERSONAL HISTORY OF (HEALED) TRAUMATIC F 01/09/2019 FAVIAN COWARTP Ot Z88.6 ALLERGY STATUS TO ANALGESIC AGENT STATUS 01/10/2019 AMANDEEP GENAO DO Ot M19.012 PRIMARY OSTEOARTHRITIS, LEFT SHOULDER 01/10/2019 AMANDEEP GENAO DO Ot S49.92XA UNSP INJURY OF LEFT SHOULDER AND UPPER A 01/10/2019 AMANDEEP GENAO DO Ot W19.XXXA UNSPECIFIED FALL, INITIAL ENCOUNTER 01/12/2019 AMANDEEP GENAO DO Ot M19.012 PRIMARY OSTEOARTHRITIS, LEFT SHOULDER 01/12/2019 AMANDEEP GENAO DO Ot S49.92XA UNSP INJURY OF LEFT SHOULDER AND UPPER A 01/12/2019 AMANDEEP GENAO DO Ot W19.XXXA UNSPECIFIED FALL, INITIAL ENCOUNTER 01/18/2019 FAVIAN COWART Ot C34.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 01/18/2019 FAVIAN COWARTP Ot C79.9 SECONDARY MALIGNANT NEOPLASM OF UNSPECIF 01/18/2019 SOFYA, FAVIAN WIDE AREA NETWORK 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 Ot E78.00 PURE HYPERCHOLESTEROLEMIA, UNSPECIFIED 01/18/2019 SOFYA FAVIAN WIDE AREA NETWORK 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 Ot G40.909 EPILEPSY, UNSP, NOT INTRACTABLE, WITHOUT 01/18/2019 FAVIAN COWART WIDE AREA NETWORK 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 Ot G62.9 POLYNEUROPATHY, UNSPECIFIED 01/18/2019 FAVIAN COWART WIDE AREA NETWORK 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 Ot I10 ESSENTIAL (PRIMARY) HYPERTENSION 01/18/2019 FAVIAN COWARTP Ot J44.9 CHRONIC OBSTRUCTIVE PULMONARY DISEASE, U 01/18/2019 FAVIAN COWART WIDE AREA NETWORK 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 Ot M19.012 PRIMARY OSTEOARTHRITIS, LEFT SHOULDER 01/18/2019 FAVIAN COWART WIDE AREA NETWORK 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 Ot M25.512 PAIN IN LEFT SHOULDER 01/18/2019 FAVIAN COWART WIDE AREA NETWORK 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 Ot M75.102 UNSP ROTATR-CUFF TEAR/RUPTR OF LEFT SHOU 01/18/2019 FAVIAN COWART WIDE AREA NETWORK 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 Ot W19.XXXA UNSPECIFIED FALL, INITIAL ENCOUNTER 01/18/2019 FAVIAN COWARTP Ot Z79.51 [facility] (CURRENT) USE OF INHALED STERO 01/18/2019 FAVIAN COWART WIDE AREA NETWORK 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 Ot Z82.49 FAMILY HX OF ISCHEM HEART DIS AND OTH DI 01/18/2019 FAVIAN COWART WIDE AREA NETWORK 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 Ot Z87.891 PERSONAL HISTORY OF NICOTINE DEPENDENCE 01/18/2019 FAVIAN COWART WIDE AREA NETWORK 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 Ot Z88.6 ALLERGY STATUS TO ANALGESIC AGENT STATUS 01/18/2019 FAVIAN COWART WIDE AREA NETWORK 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 Ot Z99.81 DEPENDENCE ON SUPPLEMENTAL OXYGEN 01/21/2019 FAVIAN COWART WIDE AREA NETWORK 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 Ot C34.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 01/21/2019 FAVIAN COWART WIDE AREA NETWORK 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 Ot C79.9 SECONDARY MALIGNANT NEOPLASM OF UNSPECIF 01/21/2019 FAVIAN COWART WIDE AREA NETWORK 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 Ot E78.00 PURE HYPERCHOLESTEROLEMIA, UNSPECIFIED 01/21/2019 FAVIAN COWART WIDE AREA NETWORK 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 Ot G40.909 EPILEPSY, UNSP, NOT INTRACTABLE, WITHOUT 01/21/2019 FAVIAN COWART WIDE AREA NETWORK 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 Ot G62.9 POLYNEUROPATHY, UNSPECIFIED 01/21/2019 SOFYA FAVIAN WIDE AREA NETWORK 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 Ot I10 ESSENTIAL (PRIMARY) HYPERTENSION 01/21/2019 FAVIAN COWART WIDE AREA NETWORK 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 Ot J44.9 CHRONIC OBSTRUCTIVE PULMONARY DISEASE, U 01/21/2019 FAVIAN COWART WIDE AREA NETWORK 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 Ot M19.012 PRIMARY OSTEOARTHRITIS, LEFT SHOULDER 01/21/2019 FAVIAN COWART Ot M25.512 PAIN IN LEFT SHOULDER 01/21/2019 SOFYAFAVIAN Bustos Ot M75.102 UNSP ROTATR-CUFF TEAR/RUPTR OF LEFT SHOU 01/21/2019 SOFYAFAVIAN Bustos Ot W19.XXXA UNSPECIFIED FALL, INITIAL ENCOUNTER 01/21/2019 SOFYAFAVIAN Bustos Ot Z79.51 [facility] [employer] (CURRENT) USE OF INHALED STERO 01/21/2019 FAVIAN COWART Ot Z82.49 FAMILY HX OF ISCHEM HEART DIS AND OTH DI 01/21/2019 SOFYAFAVIAN Bustos Ot Z87.891 PERSONAL HISTORY OF NICOTINE DEPENDENCE 01/21/2019 FAVIAN COWART Ot Z88.6 ALLERGY STATUS TO ANALGESIC AGENT STATUS 01/21/2019 SOFYAFAVIAN Bustos Ot Z99.81 DEPENDENCE ON SUPPLEMENTAL OXYGEN 01/23/2019 MARY RIOS, STEFAN Zuniga Ot C34.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 01/23/2019 STEFAN HERNANDEZ MD Ot E78.00 PURE HYPERCHOLESTEROLEMIA, UNSPECIFIED 01/23/2019 MARY RIOS, STEFAN Zuniga Ot G40.909 EPILEPSY, UNSP, NOT INTRACTABLE, WITHOUT 01/23/2019 MARY RIOS, STEFAN Zuniga Ot G47.30 SLEEP APNEA, UNSPECIFIED 01/23/2019 MARY RIOS, STEFAN Zuniga Ot G62.9 POLYNEUROPATHY, UNSPECIFIED 01/23/2019 STEFAN HERNANDEZ MD Ot I10 ESSENTIAL (PRIMARY) HYPERTENSION 01/23/2019 MARY RIOS, STEFAN Zuniga Ot J44.1 CHRONIC OBSTRUCTIVE PULMONARY DISEASE W 01/23/2019 STEFAN HERNANDEZ MD Ot J45.909 UNSPECIFIED ASTHMA, UNCOMPLICATED 01/23/2019 MARY RIOS, STEFAN Zuniga Ot R06.02 SHORTNESS OF BREATH 01/23/2019 STEFAN HERNANDEZ MD Ot R06.03 ACUTE RESPIRATORY DISTRESS 01/23/2019 STEFAN HERNANDEZ MD Ot Z82.49 FAMILY HX OF ISCHEM HEART DIS AND OTH DI 01/23/2019 STEFAN HERNANDEZ MD Ot Z86.12 PERSONAL HISTORY OF POLIOMYELITIS 01/23/2019 MARY RIOS, STEFAN Zuniga Ot Z87.891 PERSONAL HISTORY OF NICOTINE DEPENDENCE 01/23/2019 MARY RIOS, STEFAN Zuniga Ot Z88.6 ALLERGY STATUS TO ANALGESIC AGENT STATUS 01/23/2019 MARY RIOS, STEFAN Zuniga Ot Z99.81 DEPENDENCE ON SUPPLEMENTAL OXYGEN 02/09/2019 AMANDEEP GENAO DO Ot M47.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 02/09/2019 AMANDEEP GENAO DO Ot S12.110D ANT DISPL TYPE II DENS FRACTURE, SUBS FO 02/09/2019 AMANDEEP GENAO DO Ot W19.XXXD UNSPECIFIED FALL, SUBSEQUENT ENCOUNTER 02/17/2019 STEPHEN PRICE Ot C34.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, LEFT B 02/17/2019 STEPHEN PRICE Ot C79.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 02/17/2019 STEPHEN PRICE Ot E78.5 HYPERLIPIDEMIA, UNSPECIFIED 02/17/2019 STEPHEN PRICE Ot G40.909 EPILEPSY, UNSP, NOT INTRACTABLE, WITHOUT 02/17/2019 STEPHEN PRICE Ot J43.9 EMPHYSEMA, UNSPECIFIED 02/17/2019 STEPHEN PRICE Ot Z51.11 ENCOUNTER FOR ANTINEOPLASTIC CHEMOTHERAP 02/17/2019 STEPHEN PRICE Ot Z79.899 OTHER [facility] (CURRENT) DRUG THERAPY 02/17/2019 STEPHEN PRICE Ot Z87.891 PERSONAL HISTORY OF NICOTINE DEPENDENCE 02/18/2019 AMANDEEP GNEAO DO Ot M47.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 02/18/2019 AMANDEEP GENAO DO Ot S12.110A ANTERIOR DISPLACED TYPE II DENS FRACTURE 02/18/2019 AMANDEEP GENAO DO Ot W19.XXXA UNSPECIFIED FALL, INITIAL ENCOUNTER 02/18/2019 STEPHEN PRICE Ot C34.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, LEFT B 02/18/2019 STEPHEN PRICE Ot C79.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 02/18/2019 STEPHEN PRICE Ot E78.5 HYPERLIPIDEMIA, UNSPECIFIED 02/18/2019 STEPHEN PRICE Ot G40.909 EPILEPSY, UNSP, NOT INTRACTABLE, WITHOUT 02/18/2019 DEESTEPHEN Ot J43.9 EMPHYSEMA, UNSPECIFIED 02/18/2019 DEESTEPHEN Ot Z51.11 ENCOUNTER FOR ANTINEOPLASTIC CHEMOTHERAP 02/18/2019 DEESTEPHEN Ot Z79.899 OTHER [facility] (CURRENT) DRUG THERAPY 02/18/2019 DEE, STEPHEN Muniz Ot Z87.891 PERSONAL HISTORY OF NICOTINE DEPENDENCE 02/20/2019 GELLENDER DO, AMANDEEP Pineda Ot C34.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 02/20/2019 GELLENDER DO, AMANDEEP Pineda Ot C79.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 02/20/2019 GELLENDER DO, AMANDEEP Pineda Ot E78.00 PURE HYPERCHOLESTEROLEMIA, UNSPECIFIED 02/20/2019 GELLENDER DO, AMANDEEP Pineda Ot G14 POSTPOLIO SYNDROME 02/20/2019 GELLENDER DO, AMANDEEP Pineda Ot G40.909 EPILEPSY, UNSP, NOT INTRACTABLE, WITHOUT 02/20/2019 GELLENDER DO, AMANDEEP Pineda Ot G47.30 SLEEP APNEA, UNSPECIFIED 02/20/2019 GELLENDER DO, AMANDEEP Pineda Ot G62.9 POLYNEUROPATHY, UNSPECIFIED 02/20/2019 GELLENDER DO, AMANDEEP Pineda Ot I10 ESSENTIAL (PRIMARY) HYPERTENSION 02/20/2019 GELLENDER DO, AMANDEEP Pineda Ot I38 ENDOCARDITIS, VALVE UNSPECIFIED 02/20/2019 GELLENDER DO, AMANDEEP Pineda Ot J18.9 PNEUMONIA, UNSPECIFIED ORGANISM 02/20/2019 GELLENDER DO, AMANDEEP Pineda Ot J30.2 OTHER SEASONAL ALLERGIC RHINITIS 02/20/2019 GELLENDER DO, AMANDEEP Pineda Ot J43.9 EMPHYSEMA, UNSPECIFIED 02/20/2019 GELLENDER DO, AMANDEEP Pineda Ot M19.90 UNSPECIFIED OSTEOARTHRITIS, UNSPECIFIED 02/20/2019 GELLENDER DO, AMANDEEP Pineda Ot S01.01XA LACERATION WITHOUT FOREIGN BODY OF SCALP 02/20/2019 GELLENDER DO, AMANDEEP Pineda Ot W18.39XA OTHER FALL ON SAME LEVEL, INITIAL ENCOUN 02/20/2019 GELLENDER DO, AMANDEEP Pineda Ot Z79.51 [facility] (CURRENT) USE OF INHALED STERO 02/20/2019 GELLENDER DO, AMANDEEP Pineda Ot Z85.118 PERSONAL HISTORY OF MALIGNANT NEOPLASM O 02/20/2019 GELLENDER DO, AMANDEEP Pineda Ot Z87.891 PERSONAL HISTORY OF NICOTINE DEPENDENCE 02/20/2019 CHADWICK LASSITER, AMANDEEP Pineda Ot Z99.81 DEPENDENCE ON SUPPLEMENTAL OXYGEN 02/21/2019 CHADWICK LASSITER, AMANDEEP Pineda Ot M47.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 02/21/2019 [facility], AMANDEEP Pineda Ot S12.110A ANTERIOR DISPLACED TYPE II DENS FRACTURE 02/21/2019 CHADWICK LASSITER, AMANDEEP Pineda Ot W19.XXXA UNSPECIFIED FALL, INITIAL ENCOUNTER 03/12/2019 CHADWICK LASSITER, AMANDEEP Pineda Ot R56.9 UNSPECIFIED CONVULSIONS 03/12/2019 [facility], AMANDEEP Pineda Ot F17.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, UNSPECIFIED, UNCOMP 03/12/2019 [facility] , AMANDEEP Pineda Ot J44.9 CHRONIC OBSTRUCTIVE PULMONARY DISEASE, U 03/12/2019 [facility] , AMANDEEP Pineda Ot R63.4 ABNORMAL WEIGHT LOSS 03/12/2019 [facility] , AMANDEEP Pineda Ot J44.9 CHRONIC OBSTRUCTIVE PULMONARY DISEASE, U 03/12/2019 [facility] , AMANDEEP Pineda Ot R63.4 ABNORMAL WEIGHT LOSS 03/12/2019 [facility], AMANDEEP Pineda Ot R63.4 ABNORMAL WEIGHT LOSS 03/12/2019 [facility], AMANDEEP Pineda Ot G40.909 EPILEPSY, UNSP, NOT INTRACTABLE, WITHOUT 03/12/2019 [facility] , AMANDEEP Pineda Ot J44.9 CHRONIC OBSTRUCTIVE PULMONARY DISEASE, U 03/12/2019 [facility], AMANDEEP Pineda Ot E87.1 HYPO-OSMOLALITY AND HYPONATREMIA 03/12/2019 CHADWICK LASSITERAMANDEEP Ot G40.909 EPILEPSY, UNSP, NOT INTRACTABLE, WITHOUT 03/12/2019 [facility], AMANDEEP Pineda Ot J44.9 CHRONIC OBSTRUCTIVE PULMONARY DISEASE, U 03/12/2019 [facility] AMANDEEP Pineda Ot G40.909 EPILEPSY, UNSP, NOT INTRACTABLE, WITHOUT 03/12/2019 [facility] AMANDEEP Ot J34.89 OTHER SPECIFIED DISORDERS OF NOSE AND NA 03/12/2019 CHADWICK LASSITERAMANDEEP Ot S99.912A UNSPECIFIED INJURY OF LEFT ANKLE, INITIA 03/12/2019 CHADWICK LASSITER, AMANDEEP Pineda Ot W19.XXXA UNSPECIFIED FALL, INITIAL ENCOUNTER 03/12/2019 CHADWICK LASSITERAMANDEEP Ot Y99.8 OTHER EXTERNAL CAUSE STATUS 03/12/2019 CHADWICK LASSITERAMANDEEP Ot G40.909 EPILEPSY, UNSP, NOT INTRACTABLE, WITHOUT 03/12/2019 CHADWICK LASSITERAMANDEEP Ot R06.02 SHORTNESS OF BREATH 03/12/2019 CHADWICK LASSITERAMANDEEP Ot R63.4 ABNORMAL WEIGHT LOSS 03/12/2019 STEPHEN PRICE Ot J43.9 EMPHYSEMA, UNSPECIFIED 03/12/2019 STEPHEN PRICE Ot R91.1 SOLITARY PULMONARY NODULE 03/12/2019 RANI PACHECO DO Ot F17.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 21 ACUTE AND CHRONIC RESPIRATORY FAILURE [place] 03/12/2019 RANI PACHECO DO Ot R22. 0 LOCALIZED SWELLING, MASS AND LUMP, HEAD 03/12/2019 RANI PACHECO DO Ot Z99. 81 DEPENDENCE ON SUPPLEMENTAL OXYGEN 03/12/2019 RANI PACHECO DO Ot J44. 9 CHRONIC OBSTRUCTIVE PULMONARY DISEASE, U 03/12/2019 RANI PACHECO DO Ot M25.559 PAIN IN UNSPECIFIED HIP 03/12/2019 RANI PACHECO DO Ot R91. 8 OTHER NONSPECIFIC ABNORMAL FINDING OF DAIVD 03/12/2019 RANI PACHECO DO Ot Z72. 0 TOBACCO USE 03/12/2019 AMANDEEP GENAO DO Ot J44.9 CHRONIC OBSTRUCTIVE PULMONARY DISEASE, U 03/12/2019 NINA ANAYA [employer] PRESS TENDER Ot M79.604 PAIN IN RIGHT LEG 03/12/2019 NINA ANAYA [employer] PRESS TENDER Ot M79.605 PAIN IN LEFT LEG 03/12/2019 NINA ANAYA [employer] PRESS TENDER Ot M79.89 OTHER SPECIFIED SOFT TISSUE DISORDERS 03/12/2019 NINA ANAYA [employer] PRESS TENDER Ot R91.8 OTHER NONSPECIFIC ABNORMAL FINDING OF DAVID 03/12/2019 SIVA RESENDIZP Ot C34.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, LEFT B 03/12/2019 SIVA RESENDIZ WIDE AREA NETWORK 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 Ot C79.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 03/12/2019 AMANDEEP GENAO DO Ot B35.1 TINEA UNGUIUM 03/12/2019 SIVA RESENDIZ WIDE AREA NETWORK 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 Ot C34.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, LEFT B 03/12/2019 SIVA RESENDIZ Ot C79.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 03/12/2019 SIVA RESENDIZ Ot C34.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, LEFT B 03/12/2019 SIVA RESENDIZ Ot C34.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, LEFT B 03/12/2019 SIVA RESENDIZ Ot C79.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 03/12/2019 JOSEBRAYAN AMANDEEP LASSITER Ot M43.12 SPONDYLOLISTHESIS, CERVICAL REGION 03/12/2019 [facility] AMANDEEP LASSITER Ot M47.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 03/12/2019 [facility] AMANDEEP LASSITER Ot S19.9XXA UNSPECIFIED INJURY OF NECK, INITIAL ENCO 03/12/2019 SIVA RESENDIZ Ot C34.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, LEFT B 03/12/2019 SIVA RESENDIZ Ot C79.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 03/12/2019 [facility] Ot M19.011 PRIMARY OSTEOARTHRITIS, RIGHT SHOULDER 03/12/2019 [facility] Ot M79.621 PAIN IN RIGHT UPPER ARM 03/12/2019 [facility] Ot S79.911A UNSPECIFIED INJURY OF RIGHT HIP, INITIAL 03/12/2019 CHADWICK LASSITERAMANDEEP Ot W19.XXXA UNSPECIFIED FALL, INITIAL ENCOUNTER 03/12/2019 JOSEBRAYAN AMANDEEP LASSITER Ot R05 COUGH 03/12/2019 CHADWICK LASSITERAMANDEEP Ot R91.8 OTHER NONSPECIFIC ABNORMAL FINDING OF DAVID 03/12/2019 [facility] Ot Z95.828 PRESENCE OF OTHER VASCULAR IMPLANTS AND 03/12/2019 SIVA RESENDIZ Ot J98.11 ATELECTASIS 03/12/2019 SIVA RESENDIZ Ot M43.12 SPONDYLOLISTHESIS, CERVICAL REGION 03/12/2019 SIVA RESENDIZ Ot M47.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 03/12/2019 SIVA RESENDIZ Ot S12.190A OTH DISP FX OF SECOND CERVICAL VERTEBRA, 03/12/2019 SIVA RESENDIZ WIDE AREA NETWORK 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 Ot W19.XXXA UNSPECIFIED FALL, INITIAL ENCOUNTER 03/12/2019 SIVA RESENDIZ WIDE AREA NETWORK 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 Ot Z95.828 PRESENCE OF OTHER VASCULAR IMPLANTS AND 03/12/2019 NINA ANAYA APRN Ot C34.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, LEFT B 03/12/2019 NINA ANAYA [employer] PRESS TENDER Ot F17.201 NICOTINE DEPENDENCE, UNSPECIFIED, IN REM 03/12/2019 NINA ANAYA [employer] PRESS TENDER Ot I25.10 ATHSCL HEART DISEASE OF [place] CORONARY 03/12/2019 NINA ANAYA APRN Ot I70.0 ATHEROSCLEROSIS OF [place] 03/12/2019 INNA ANAYA APRN Ot J18.9 PNEUMONIA, UNSPECIFIED ORGANISM 03/12/2019 NINA ANAYA APRN Ot J43.9 EMPHYSEMA, UNSPECIFIED 03/12/2019 NINA ANAYA APRN Ot J96.20 ACUTE AND CHR RESP FAILURE, UNSP W HYPOX 03/12/2019 NINA ANAYA APRN Ot J98.4 OTHER DISORDERS OF LUNG 03/12/2019 NINA ANAYA APRN Ot R91.8 OTHER NONSPECIFIC ABNORMAL FINDING OF DAVID 03/12/2019 RANI PACHECO DO Ot C34. 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, LEFT B 03/12/2019 RANI PACHECO DO Ot F17.201 NICOTINE DEPENDENCE, UNSPECIFIED, IN REM 03/12/2019 RANI PACHECO DO Ot J18. 9 PNEUMONIA, UNSPECIFIED ORGANISM 03/12/2019 RANI PACHECO DO Ot J44. 1 CHRONIC OBSTRUCTIVE PULMONARY DISEASE W 03/12/2019 RANI PACHECO DO Ot J96. 20 ACUTE AND CHR RESP FAILURE, UNSP W HYPOX 03/12/2019 RANI PACHECO DO Ot R91. 8 OTHER NONSPECIFIC ABNORMAL FINDING OF DAVID 03/12/2019 RANI PACHECO DO Ot Z95.828 PRESENCE OF OTHER VASCULAR IMPLANTS AND 03/12/2019 STEPHEN PRICE Ot C34.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, LEFT B 03/12/2019 STEPHEN PRICE Ot C79.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 03/12/2019 STEPHEN PRICE Ot Z01.89 ENCOUNTER FOR OTHER SPECIFIED SPECIAL EX 03/12/2019 CHADW[facility] LASSITER AMANDEEP Pineda Ot R56.9 UNSPECIFIED CONVULSIONS 03/12/2019 EFRAIN RESENDIZBRENDA Jennifer CAR Ot I25.10 ATHSCL HEART DISEASE OF [place] CORONARY 03/12/2019 EFRAIN RESENDIZBRENDA Jennifer WIDE AREA NETWORK 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 Ot I70.0 ATHEROSCLEROSIS OF [place] 03/12/2019 EFRAIN RESENDIZBRENDA Jennifer ROSASP Ot J43.9 EMPHYSEMA, UNSPECIFIED 03/12/2019 SIVA RESENDIZP Ot N28.1 CYST OF KIDNEY, ACQUIRED 03/12/2019 SIVA RESENDIZP Ot Z01.89 ENCOUNTER FOR OTHER SPECIFIED SPECIAL EX 03/12/2019 RESENDIZEFRAINBRENDA Rodriguez WIDE AREA NETWORK 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 Ot Z79.51 [facility] (CURRENT) USE OF INHALED STERO 03/12/2019 EFRAIN RESENDIZBRENDA Jennifer CAR Ot Z85.118 PERSONAL HISTORY OF MALIGNANT NEOPLASM O 03/12/2019 CHADWICK LASSITERAMANDEEP Ot M19.012 PRIMARY OSTEOARTHRITIS, LEFT SHOULDER 03/12/2019 [facility] Ot S49.92XA UNSP INJURY OF LEFT SHOULDER AND UPPER A 03/12/2019 [facility] AMANDEEP Ot W19.XXXA UNSPECIFIED FALL, INITIAL ENCOUNTER 03/12/2019 CHADWICK LASSITERAMANDEEP Ot M47.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 03/12/2019 [facility] Ot S12.110D ANT DISPL TYPE II DENS FRACTURE, SUBS FO 03/12/2019 CHADWICK LASSITERAMANDEEP Ot W19.XXXD UNSPECIFIED FALL, SUBSEQUENT ENCOUNTER 03/12/2019 CHADWICK LASSITERAMANDEEP Ot M47.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 Ot S12.110A ANTERIOR DISPLACED TYPE II DENS FRACTURE 03/12/2019 [facility] Ot W19.XXXA UNSPECIFIED FALL, INITIAL ENCOUNTER 03/12/2019 STEPHEN PRICE Ot C34.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, LEFT B 03/12/2019 STEPHEN PRICE Ot C79.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 03/12/2019 STEPHEN PRICE Ot E78.5 HYPERLIPIDEMIA, UNSPECIFIED 03/12/2019 STEPHEN PRICE Ot G40.909 EPILEPSY, UNSP, NOT INTRACTABLE, WITHOUT 03/12/2019 STEPHEN PRICE Ot J43.9 EMPHYSEMA, UNSPECIFIED 03/12/2019 STEPHEN PRICE Ot Z51.11 ENCOUNTER FOR ANTINEOPLASTIC CHEMOTHERAP 03/12/2019 STEPHEN PRICE Ot Z79.899 OTHER RECRUITMENT INTERNSHIP (CURRENT) DRUG THERAPY 03/12/2019 STEPHEN PRICE Ot Z87.891 PERSONAL HISTORY OF NICOTINE DEPENDENCE 03/12/2019 GELLENDER DO, AMANDEEP Pineda Ot R56.9 UNSPECIFIED CONVULSIONS 03/12/2019 GELLENDER DO, AMANDEEP Pineda Ot F17.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, UNSPECIFIED, UNCOMP 03/12/2019 GELLENDER DO, AMANDEEP Pineda Ot J44.9 CHRONIC OBSTRUCTIVE PULMONARY DISEASE, U 03/12/2019 GELLENDER DO, AMANDEEP Pineda Ot R63.4 ABNORMAL WEIGHT LOSS 03/12/2019 GELLENDER DO, AMANDEEP Pineda Ot J44.9 CHRONIC OBSTRUCTIVE PULMONARY DISEASE, U 03/12/2019 GELLENDER DO, AMANDEEP Pineda Ot R63.4 ABNORMAL WEIGHT LOSS 03/12/2019 GELLENDER DO, AMANDEEP Pineda Ot R63.4 ABNORMAL WEIGHT LOSS 03/12/2019 GELLENDER DO, AMANDEEP Pineda Ot G40.909 EPILEPSY, UNSP, NOT INTRACTABLE, WITHOUT 03/12/2019 GELLENDER DO, AMANDEEP Pineda Ot J44.9 CHRONIC OBSTRUCTIVE PULMONARY DISEASE, U 03/12/2019 GELLENDER DO, AMANDEEP Pineda Ot E87.1 HYPO-OSMOLALITY AND HYPONATREMIA 03/12/2019 GELLENDER DOAMANDEEP Ot G40.909 EPILEPSY, UNSP, NOT INTRACTABLE, WITHOUT 03/12/2019 GELLENDER DOAMANDEEP Ot J44.9 CHRONIC OBSTRUCTIVE PULMONARY DISEASE, U 03/12/2019 GELLENDER DO, AMANDEEP Pineda Ot G40.909 EPILEPSY, UNSP, NOT INTRACTABLE, WITHOUT 03/12/2019 GELLENDER DOAMANDEEP Ot J34.89 OTHER SPECIFIED DISORDERS OF NOSE AND NA 03/12/2019 AMANDEEP GENAO DO Ot S99.912A UNSPECIFIED INJURY OF LEFT ANKLE, INITIA 03/12/2019 GELLENDER DOAMANDEEP Ot W19.XXXA UNSPECIFIED FALL, INITIAL ENCOUNTER 03/12/2019 AMANDEEP GENAO DO Ot Y99.8 OTHER EXTERNAL CAUSE STATUS 03/12/2019 [place] AMANDEEP LASSITER Ot G40.909 EPILEPSY, UNSP, NOT INTRACTABLE, WITHOUT 03/12/2019 BROOKENUNUBRAYAN AMANDEEP LASSITER Ot R06.02 SHORTNESS OF BREATH 03/12/2019 JOSEBRAYAN AMANDEEP LASSITER Ot R63.4 ABNORMAL WEIGHT LOSS 03/12/2019 STEPHEN PRICE Ot J43.9 EMPHYSEMA, UNSPECIFIED 03/12/2019 STEPHEN PRICE Ot R91.1 SOLITARY PULMONARY NODULE 03/12/2019 RANI PACHECO DO Ot F17.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 21 ACUTE AND CHRONIC RESPIRATORY FAILURE WI 03/12/2019 RANI PACHECO DO Ot R22. 0 LOCALIZED SWELLING, MASS AND LUMP, HEAD 03/12/2019 RANI PACHECO DO Ot Z99. 81 DEPENDENCE ON SUPPLEMENTAL OXYGEN 03/12/2019 RANI PACHECO DO Ot J44. 9 CHRONIC OBSTRUCTIVE PULMONARY DISEASE, U 03/12/2019 RANI PACHECO DO Ot M25.559 PAIN IN UNSPECIFIED HIP 03/12/2019 RANI PACHECO DO Ot R91. 8 OTHER NONSPECIFIC ABNORMAL FINDING OF DAVID 03/12/2019 RANI PACHECO DO Ot Z72. 0 TOBACCO USE 03/12/2019 AMANDEEP GENAO DO Ot J44.9 CHRONIC OBSTRUCTIVE PULMONARY DISEASE, U 03/12/2019 NINA ANAYA APRN Ot M79.604 PAIN IN RIGHT LEG 03/12/2019 NINA ANAYA APRN Ot M79.605 PAIN IN LEFT LEG 03/12/2019 NINA ANAYA [employer] PRESS TENDER Ot M79.89 OTHER SPECIFIED SOFT TISSUE DISORDERS 03/12/2019 NINA ANAYA [employer] PRESS TENDER Ot R91.8 OTHER NONSPECIFIC ABNORMAL FINDING OF DAVID 03/12/2019 SIVA RESENDIZP Ot C34.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, LEFT B 03/12/2019 SIVA RESENDIZP Ot C79.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 03/12/2019 AMANDEEP GENAO DO Ot B35.1 TINEA UNGUIUM 03/12/2019 SIVA RESENDIZ WIDE AREA NETWORK 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 Ot C34.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, LEFT B 03/12/2019 SIVA RESENDIZ Ot C79.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 03/12/2019 SIVA RESENDIZ Ot C34.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, LEFT B 03/12/2019 SIVA RESENDIZ Ot C34.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, LEFT B 03/12/2019 SIVA RESENDIZ Ot C79.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 03/12/2019 BROOKESHERYL LASSITERAMANDEEP Ot M43.12 SPONDYLOLISTHESIS, CERVICAL REGION 03/12/2019 [place] LASSITERAMANDEEP Ot M47.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 03/12/2019 [place] LASSITERAMANDEEP Ot S19.9XXA UNSPECIFIED INJURY OF NECK, INITIAL ENCO 03/12/2019 SIVA RESENDIZ Ot C34.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, LEFT B 03/12/2019 SIVA RESENDIZ Ot C79.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 03/12/2019 [place] LASSITERAMANDEEP Ot M19.011 PRIMARY OSTEOARTHRITIS, RIGHT SHOULDER 03/12/2019 [place] LASSITERAMANDEEP Ot M79.621 PAIN IN RIGHT UPPER ARM 03/12/2019 [place] LASSITERAMANDEEP Ot S79.911A UNSPECIFIED INJURY OF RIGHT HIP, INITIAL 03/12/2019 [place] LASSITERAMANDEEP Ot W19.XXXA UNSPECIFIED FALL, INITIAL ENCOUNTER 03/12/2019 BROOKESHERYL LASSITERAMANDEEP Ot R05 COUGH 03/12/2019 CHADWICK LASSITERAMANDEEP Ot R91.8 OTHER NONSPECIFIC ABNORMAL FINDING OF DAVID 03/12/2019 BROOKESHERYL LASSITERAMANDEEP Ot Z95.828 PRESENCE OF OTHER VASCULAR IMPLANTS AND 03/12/2019 SIVA RESENDIZ Ot J98.11 ATELECTASIS 03/12/2019 SIVA RESENDIZ Ot M43.12 SPONDYLOLISTHESIS, CERVICAL REGION 03/12/2019 SIVA RESENDIZ Ot M47.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 03/12/2019 SIVA RESENDIZ Ot S12.190A OTH DISP FX OF SECOND CERVICAL VERTEBRA, 03/12/2019 RESENDIZ, HILAH S WIDE AREA NETWORK 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 Ot W19.XXXA UNSPECIFIED FALL, INITIAL ENCOUNTER 03/12/2019 SIVA RESENDIZ JOCELINE Ot Z95.828 PRESENCE OF OTHER VASCULAR IMPLANTS AND 03/12/2019 NINA ANAYA APRN Ot C34.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, LEFT B 03/12/2019 NINA ANAYA APRN Ot F17.201 NICOTINE DEPENDENCE, UNSPECIFIED, IN REM 03/12/2019 NINA ANAYA APRN Ot I25.10 ATHSCL HEART DISEASE OF [place] CORONARY 03/12/2019 NINA ANAYA APRN Ot I70.0 ATHEROSCLEROSIS OF [place] 03/12/2019 NINA ANAYA APRN Ot J18.9 PNEUMONIA, UNSPECIFIED ORGANISM 03/12/2019 NINA ANAYA APRN Ot J43.9 EMPHYSEMA, UNSPECIFIED 03/12/2019 NINA ANAYA APRN Ot J96.20 ACUTE AND CHR RESP FAILURE, UNSP W HYPOX 03/12/2019 NINA ANAYA APRN Ot J98.4 OTHER DISORDERS OF LUNG 03/12/2019 NINA ANAYA APRN Ot R91.8 OTHER NONSPECIFIC ABNORMAL FINDING OF DAVID 03/12/2019 RANI PACHECO DO Ot C34. 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, LEFT B 03/12/2019 RANI PACHECO DO Ot F17.201 NICOTINE DEPENDENCE, UNSPECIFIED, IN REM 03/12/2019 RANI PACHECO DO Ot J18. 9 PNEUMONIA, UNSPECIFIED ORGANISM 03/12/2019 RANI PACHECO DO Ot J44. 1 CHRONIC OBSTRUCTIVE PULMONARY DISEASE W 03/12/2019 RANI PACHECO DO Ot J96. 20 ACUTE AND CHR RESP FAILURE, UNSP W HYPOX 03/12/2019 RANI PACHECO DO Ot R91. 8 OTHER NONSPECIFIC ABNORMAL FINDING OF DAVID 03/12/2019 RANI PACHECO DO Ot Z95.828 PRESENCE OF OTHER VASCULAR IMPLANTS AND 03/12/2019 STEPHEN PRICE Ot C34.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, LEFT B 03/12/2019 STEPHEN PRICE Ot C79.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 03/12/2019 STEPHEN PRICE Ot Z01.89 ENCOUNTER FOR OTHER SPECIFIED SPECIAL EX 03/12/2019 CHADWICK LASSITER AMANDEEP A Ot R56.9 UNSPECIFIED CONVULSIONS 03/12/2019 EFRAIN RESENDIZBRENDA Jennifer CAR Ot I25.10 ATHSCL HEART DISEASE OF [place] CORONARY 03/12/2019 SIVA RESENDIZP Ot I70.0 ATHEROSCLEROSIS OF [place] 03/12/2019 SIVA RESENDIZP Ot J43.9 EMPHYSEMA, UNSPECIFIED 03/12/2019 SIVA RESENDIZ Ot N28.1 CYST OF KIDNEY, ACQUIRED 03/12/2019 SIVA RESENDIZP Ot Z01.89 ENCOUNTER FOR OTHER SPECIFIED SPECIAL EX 03/12/2019 EFRAIN RESENDIZBRENDA Jennifer ROSASP Ot Z79.51 [facility] (CURRENT) USE OF INHALED STERO 03/12/2019 SIVA RESENDIZP Ot Z85.118 PERSONAL HISTORY OF MALIGNANT NEOPLASM O 03/12/2019 CHADWICK LASSITERAMANDEEP Ot M19.012 PRIMARY OSTEOARTHRITIS, LEFT SHOULDER 03/12/2019 CHADWICK LASSITERAMANDEEP Ot S49.92XA UNSP INJURY OF LEFT SHOULDER AND UPPER A 03/12/2019 CHADWICK AMANDEEP Ot W19.XXXA UNSPECIFIED FALL, INITIAL ENCOUNTER 03/12/2019 CHADWICK LASSITERAMANDEEP Ot M47.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 Ot S12.110A ANTERIOR DISPLACED TYPE II DENS FRACTURE 03/12/2019 [facility] AMANDEEP Ot W19.XXXA UNSPECIFIED FALL, INITIAL ENCOUNTER 03/12/2019 STEPHEN PRICE Ot C34.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, LEFT B 03/12/2019 STEPHEN PRICE Ot C79.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 03/12/2019 STEPHEN PRICE Ot E78.5 HYPERLIPIDEMIA, UNSPECIFIED 03/12/2019 STEPHEN PRICE Ot G40.909 EPILEPSY, UNSP, NOT INTRACTABLE, WITHOUT 03/12/2019 DEE, BOBAN N Ot J43.9 EMPHYSEMA, UNSPECIFIED 03/12/2019 DEE, BOBAN N Ot Z51.11 ENCOUNTER FOR ANTINEOPLASTIC CHEMOTHERAP 03/12/2019 DEE BOBAN N Ot Z79.899 OTHER [facility] (CURRENT) DRUG THERAPY 03/12/2019 DEE SABASAN N Ot Z87.891 PERSONAL HISTORY OF NICOTINE DEPENDENCE 03/16/2019 HÉCTOR NINA E [employer] PRESS TENDER Ot C34.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, LEFT B 03/16/2019 HÉCTOR, NINA E PYROTECHNICS PRESS TENDER Ot F17.201 NICOTINE DEPENDENCE, UNSPECIFIED, IN REM 03/16/2019 HÉCTOR NINA E [employer]YROTECHN[employer] PRESS TENDER Ot J18.9 PNEUMONIA, UNSPECIFIED ORGANISM 03/16/2019 HÉCTOR, NINA E PYROTECHNICS PRESS TENDER Ot J44.1 CHRONIC OBSTRUCTIVE PULMONARY DISEASE W 03/16/2019 HÉCTOR, NINA E PYROTECHNICS PRESS TENDER Ot J96.20 ACUTE AND CHR RESP FAILURE, UNSP W HYPOX 03/19/2019 HÉCTOR NINA E PYROTECHN[employer] PRESS TENDER Ot C34.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, LEFT B 03/19/2019 HÉCTOR, NINA E PYROTECHN[employer] PRESS TENDER Ot F17.201 NICOTINE DEPENDENCE, UNSPECIFIED, IN REM 03/19/2019 HÉCTOR, NINA E PYROTECHN[employer] PRESS TENDER Ot J18.9 PNEUMONIA, UNSPECIFIED ORGANISM 03/19/2019 HÉCTOR NINA E [employer]YROTECHN[employer] PRESS TENDER Ot J44.1 CHRONIC OBSTRUCTIVE PULMONARY DISEASE W 03/19/2019 HÉCTOR, NINA E PYROTECHNICS PRESS TENDER Ot J96.20 ACUTE AND CHR RESP FAILURE, UNSP W HYPOX 03/30/2019 DEE BOBAN N Ot C34.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, LEFT B 03/30/2019 DEE BOBAN N Ot C79.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 03/30/2019 DEE BOBAN N Ot E78.5 HYPERLIPIDEMIA, UNSPECIFIED 03/30/2019 DEE, BOBAN N Ot G40.909 EPILEPSY, UNSP, NOT INTRACTABLE, WITHOUT 03/30/2019 DEE, BOBAN N Ot J43.9 EMPHYSEMA, UNSPECIFIED 03/30/2019 DEE BOBAN N Ot Z51.11 ENCOUNTER FOR ANTINEOPLASTIC CHEMOTHERAP 03/30/2019 DEE BOBAN N Ot Z79.899 OTHER [employer] [employer] (CURRENT) DRUG THERAPY 03/30/2019 STEPHEN PRICE Ot Z87.891 PERSONAL HISTORY OF NICOTINE DEPENDENCE 03/30/2019 STEPHEN PRICE Ot Z92.21 PERSONAL HISTORY OF ANTINEOPLASTIC CHEMO 04/04/2019 STEPHEN PRICE Ot C34.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, LEFT B 04/04/2019 STEPHEN PRICE Ot C79.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 04/04/2019 STEPHEN PRICE Ot E78.5 HYPERLIPIDEMIA, UNSPECIFIED 04/04/2019 STEPHEN PRICE Ot G40.909 EPILEPSY, UNSP, NOT INTRACTABLE, WITHOUT 04/04/2019 STEPHEN PRICE Ot J43.9 EMPHYSEMA, UNSPECIFIED 04/04/2019 STEPHEN PRICE Ot Z51.11 ENCOUNTER FOR ANTINEOPLASTIC CHEMOTHERAP 04/04/2019 STEPHEN PRICE Ot Z79.899 OTHER [facility] (CURRENT) DRUG THERAPY 04/04/2019 STEPHEN PRICE Ot Z87.891 PERSONAL HISTORY OF NICOTINE DEPENDENCE 04/04/2019 STEPHEN PRICE Ot Z92.21 PERSONAL HISTORY OF ANTINEOPLASTIC CHEMO 04/09/2019 GELLENDER DO, AMANDEEP Pineda Ot A41.9 SEPSIS, UNSPECIFIED ORGANISM 04/09/2019 GELLENDER DO, AMANDEEP Pineda Ot B91 SEQUELAE OF POLIOMYELITIS 04/09/2019 GELLENDER DO, AMANDEEP Pineda Ot C34.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 04/09/2019 GELLENDER DO, AMANDEEP Pineda Ot C79.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 04/09/2019 GELLENDER DO, AMANDEEP Pineda Ot E78.00 PURE HYPERCHOLESTEROLEMIA, UNSPECIFIED 04/09/2019 GELLENDER DO, AMANDEEP Pineda Ot G40.909 EPILEPSY, UNSP, NOT INTRACTABLE, WITHOUT 04/09/2019 GELLENDER DO, AMANDEEP Pineda Ot G47.30 SLEEP APNEA, UNSPECIFIED 04/09/2019 GELLENDER DO, AMANDEEP Pineda Ot G62.9 POLYNEUROPATHY, UNSPECIFIED 04/09/2019 GELLENDER DO, AMANDEEP Pineda Ot I10 ESSENTIAL (PRIMARY) HYPERTENSION 04/09/2019 GELLENDER DO, AMANDEEP Pineda Ot I38 ENDOCARDITIS, VALVE UNSPECIFIED 04/09/2019 GELLENDER DO, AMANDEEP Pineda Ot J18.1 LOBAR PNEUMONIA, UNSPECIFIED ORGANISM 04/09/2019 GELLENDER DO, AMANDEEP Pineda Ot J18.9 PNEUMONIA, UNSPECIFIED ORGANISM 04/09/2019 GELLENDER DO, AMANDEEP Pineda Ot J43.9 EMPHYSEMA, UNSPECIFIED 04/09/2019 GELLENDER DO, AMANDEEP Pineda Ot M24.50 CONTRACTURE, UNSPECIFIED JOINT 04/09/2019 GELLENDER DO, AMANDEEP Pineda Ot R29.898 OTH SYMPTOMS AND SIGNS INVOLVING THE MUS 04/09/2019 GELLENDER DO, AMANDEEP Pineda Ot Z87.891 PERSONAL HISTORY OF NICOTINE DEPENDENCE 04/09/2019 GELLENDER DO, AMANDEEP Miriam Ot Z99.81 DEPENDENCE ON SUPPLEMENTAL OXYGEN 04/13/2019 SIVA RESENDIZP Ot I25.10 ATHSCL HEART DISEASE OF [place] CORONARY 04/13/2019 SIVA RESENDIZP Ot I70.0 ATHEROSCLEROSIS OF [place] 04/13/2019 SIVA RESENDIZP Ot J43.9 EMPHYSEMA, UNSPECIFIED 04/13/2019 SIVA RESENDIZ Ot N28.1 CYST OF KIDNEY, ACQUIRED 04/13/2019 SIVA RESENDIZP Ot Z01.89 ENCOUNTER FOR OTHER SPECIFIED SPECIAL EX 04/13/2019 SIVA RESENDIZ WIDE AREA NETWORK 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 Ot Z79.51 [facility] (CURRENT) USE OF INHALED STERO 04/13/2019 SIVA RESENDIZ WIDE AREA NETWORK 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 Ot Z85.118 PERSONAL HISTORY OF MALIGNANT NEOPLASM O 04/22/2019 MARY RIOS, STEFAN Zuniga Ot E78.00 PURE HYPERCHOLESTEROLEMIA, UNSPECIFIED 04/22/2019 MARY RIOS, STEFAN Zuniga Ot G40.909 EPILEPSY, UNSP, NOT INTRACTABLE, WITHOUT 04/22/2019 MARY RIOS, STEFAN Zuniga Ot G47.30 SLEEP APNEA, UNSPECIFIED 04/22/2019 MARY RIOS, STEFAN Zuniga Ot G62.9 POLYNEUROPATHY, UNSPECIFIED 04/22/2019 MARY RIOS, STEFAN Zuniga Ot I10 ESSENTIAL (PRIMARY) HYPERTENSION 04/22/2019 MARY RIOS, STEFAN Zuniga Ot J44.1 CHRONIC OBSTRUCTIVE PULMONARY DISEASE W 04/22/2019 MARY RIOS, STEFAN Zuniga Ot J45.909 UNSPECIFIED ASTHMA, UNCOMPLICATED 04/22/2019 MARY RIOS, STEFAN Zuniga Ot J96.90 RESPIRATORY FAILURE, UNSP, UNSP W HYPOXI 04/22/2019 MARY RIOS, STEFAN Zuniga Ot R06.02 SHORTNESS OF BREATH 04/22/2019 MARY RIOS, STEFAN Zuniga Ot Z79.51 [facility] [employer] (CURRENT) USE OF INHALED STERO 04/22/2019 MARY RIOS, STEFAN Zuniga Ot Z82.49 FAMILY HX OF ISCHEM HEART DIS AND OTH DI 04/22/2019 MARY RIOS, STEFAN Zuniga Ot Z85.118 PERSONAL HISTORY OF MALIGNANT NEOPLASM O 04/22/2019 MARY RIOS, STEFAN Zuniga Ot Z87.01 PERSONAL HISTORY OF PNEUMONIA (RECURRENT 04/22/2019 MARY RIOS, STEFAN Zuniga Ot Z87.891 PERSONAL HISTORY OF NICOTINE DEPENDENCE 04/22/2019 MARY RIOS, STEFAN Zuniga Ot Z88.6 ALLERGY STATUS TO ANALGESIC AGENT STATUS 04/22/2019 MARY RIOS, STEFAN Zuniga Ot Z99.81 DEPENDENCE ON SUPPLEMENTAL OXYGEN 05/10/2019 STEPHEN PRICE Ot C34.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, LEFT B 05/10/2019 STEPHEN PRICE Ot C79.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 05/10/2019 STEPHEN PRICE Ot E78.5 HYPERLIPIDEMIA, UNSPECIFIED 05/10/2019 STEPHEN PRICE Ot G40.909 EPILEPSY, UNSP, NOT INTRACTABLE, WITHOUT 05/10/2019 STEPHEN PRICE Ot J43.9 EMPHYSEMA, UNSPECIFIED 05/10/2019 STEPHEN PRICE Ot Z51.11 ENCOUNTER FOR ANTINEOPLASTIC CHEMOTHERAP 05/10/2019 STEPHEN PRICE Ot Z79.899 OTHER [facility] [employer] (CURRENT) DRUG THERAPY 05/10/2019 STEPHEN PRICE Ot Z87.891 PERSONAL HISTORY OF NICOTINE DEPENDENCE 05/10/2019 STEPHEN PRICE Ot Z92.21 PERSONAL HISTORY OF ANTINEOPLASTIC CHEMO 05/19/2019 GELLENDER DO, AMANDEEP Pineda Ot E78.00 PURE HYPERCHOLESTEROLEMIA, UNSPECIFIED 05/19/2019 GELLENDER DO, AMANDEEP Pineda Ot E78.1 PURE HYPERGLYCERIDEMIA 05/19/2019 GELLENDER DO, AMANDEEP Pineda Ot G40.909 EPILEPSY, UNSP, NOT INTRACTABLE, WITHOUT 05/19/2019 GELLENDER DO, AMANDEEP Pineda Ot G47.30 SLEEP APNEA, UNSPECIFIED 05/19/2019 GELLENDER DO, AMANDEEP Pineda Ot G62.9 POLYNEUROPATHY, UNSPECIFIED 05/19/2019 GELLENDER DO, AMANDEEP Pineda Ot I10 ESSENTIAL (PRIMARY) HYPERTENSION 05/19/2019 GELLENDER DO, AMANDEEP Pineda Ot J44.1 CHRONIC OBSTRUCTIVE PULMONARY DISEASE W 05/19/2019 GELLENDER DO, AMANDEEP Pineda Ot M19.90 UNSPECIFIED OSTEOARTHRITIS, UNSPECIFIED 05/19/2019 GELLENDER DO, AMANDEEP Pineda Ot Z79.891 [facility] (CURRENT) USE OF OPIATE ANALGE 05/19/2019 GELLENDER DO, AMANDEEP Pineda Ot Z79.899 OTHER [facility] [employer] (CURRENT) DRUG THERAPY 05/19/2019 GELLENDER DO, AMANDEEP Pineda Ot Z83.3 FAMILY HISTORY OF DIABETES MELLITUS 05/19/2019 GELLENDER DO, AMANDEEP Pineda Ot Z85.118 PERSONAL HISTORY OF MALIGNANT NEOPLASM O 05/19/2019 GELLENDER DO, AMANDEEP Pineda Ot Z87.891 PERSONAL HISTORY OF NICOTINE DEPENDENCE 05/19/2019 GELLENDER DO, AMANDEEP Pineda Ot Z88.6 ALLERGY STATUS TO ANALGESIC AGENT STATUS 05/19/2019 GELLENDER DO, AMANDEEP Pineda Ot Z88.8 ALLERGY STATUS TO OTH DRUG/MEDS/BIOL SUB 05/19/2019 GELLENDER DO, AMANDEEP Pineda Ot Z92.21 PERSONAL HISTORY OF ANTINEOPLASTIC CHEMO 05/19/2019 GELLENDER DO, AMANDEEP Pineda Ot E78.00 PURE HYPERCHOLESTEROLEMIA, UNSPECIFIED 05/19/2019 GELLENDER DO, AMANDEEP Pineda Ot E78.1 PURE HYPERGLYCERIDEMIA 05/19/2019 GELLENDER DO, AMANDEEP Pineda Ot G40.909 EPILEPSY, UNSP, NOT INTRACTABLE, WITHOUT 05/19/2019 GELLENDER DO, AMANDEEP Pineda Ot G47.30 SLEEP APNEA, UNSPECIFIED 05/19/2019 GELLENDER DO, AMANDEEP Pineda Ot G62.9 POLYNEUROPATHY, UNSPECIFIED 05/19/2019 GELLENDER DO, AMANDEEP Pineda Ot I10 ESSENTIAL (PRIMARY) HYPERTENSION 05/19/2019 GELLENDER DO, AMANDEEP Pineda Ot J42 UNSPECIFIED CHRONIC BRONCHITIS 05/19/2019 GELLENDER DO, AMANDEEP Pineda Ot J43.9 EMPHYSEMA, UNSPECIFIED 05/19/2019 GELLENDER DO, AMANDEEP Pineda Ot J44.1 CHRONIC OBSTRUCTIVE PULMONARY DISEASE W 05/19/2019 GELLENDER DO, AMANDEEP Pineda Ot M19.90 UNSPECIFIED OSTEOARTHRITIS, UNSPECIFIED 05/19/2019 GELLENDER DO, AMANDEEP Pineda Ot Z79.891 [facility] [employer] (CURRENT) USE OF OPIATE ANALGE 05/19/2019 GELLENDER DO, AMANDEEP Pineda Ot Z79.899 OTHER [facility] (CURRENT) DRUG THERAPY 05/19/2019 GELLENDER DO, AMANDEPE Pineda Ot Z83.3 FAMILY HISTORY OF DIABETES MELLITUS 05/19/2019 GELLENDER DO, AMANDEEP Pineda Ot Z85.118 PERSONAL HISTORY OF MALIGNANT NEOPLASM O 05/19/2019 GELLENDER DO, AMANDEEP Pineda Ot Z87.891 PERSONAL HISTORY OF NICOTINE DEPENDENCE 05/19/2019 GELLENDER DO, AMANDEEP Miriam Ot Z88.6 ALLERGY STATUS TO ANALGESIC AGENT STATUS 05/19/2019 GELLENDER DO, AMANDEEP Pineda Ot Z88.8 ALLERGY STATUS TO OTH DRUG/MEDS/BIOL SUB 05/19/2019 GELLENDER DO, AMANDEEP Pineda Ot Z92.21 PERSONAL HISTORY OF ANTINEOPLASTIC CHEMO 05/29/2019 GELLENDER DO, AMANDEEP Pineda Ot M47.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 05/29/2019 GELLENDER DO, AMANDEEP Miriam Ot S12.110A ANTERIOR DISPLACED TYPE II DENS FRACTURE 05/29/2019 GELLENDER DO, AMANDEEP Pineda Ot W19.XXXA UNSPECIFIED FALL, INITIAL ENCOUNTER 05/31/2019 SIVA RESENDIZ WIDE AREA NETWORK 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 Ot G25.5 OTHER [place] 05/31/2019 SIVA RESENDIZ WIDE AREA NETWORK 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 Ot 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 MAXILLARY SINUSITIS 05/31/2019 SIVA RESENDIZ WIDE AREA NETWORK 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 Ot R 51 HEADACHE 05/31/2019 SIVA RESENDIZ WIDE AREA NETWORK 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 Ot W19.XXXA UNSPECIFIED FALL, INITIAL ENCOUNTER 06/01/2019 SIVA RESENDIZ WIDE AREA NETWORK 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 Ot G25.5 OTHER [place] 06/01/2019 SIVA RESENDIZ WIDE AREA NETWORK 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 Ot 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 MAXILLARY SINUSITIS 06/01/2019 SIVA RESENDIZ WIDE AREA NETWORK 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 Ot R 51 HEADACHE 06/01/2019 SIVA RESENDIZ WIDE AREA NETWORK 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 Ot W19.XXXA UNSPECIFIED FALL, INITIAL ENCOUNTER 06/04/2019 MARY RIOS, STEFAN Zuniga Ot C34.90 MALIGNANT [facility]LASM [facility] 06/04/[facility] MARY RIOS, STEFAN Zuniga Ot E78.00 PURE HYPERCHOLESTEROLEMIA, UNSPECIFIED 06/04/2019 STEFAN HERNANDEZ MD Ot G40.909 EPILEPSY, UNSP, NOT INTRACTABLE, WITHOUT 06/04/2019 STEFAN HERNANDEZ MD, Ot G47.30 SLEEP APNEA, UNSPECIFIED 06/04/2019 STEFAN HERNANDEZ MD Ot G62.9 POLYNEUROPATHY, UNSPECIFIED 06/04/2019 STEFAN HERNANDEZ MD Ot I10 ESSENTIAL (PRIMARY) HYPERTENSION 06/04/2019 STEFAN HERNANDEZ MD, Ot J44.1 CHRONIC OBSTRUCTIVE PULMONARY DISEASE W 06/04/2019 STEFAN HERNANDEZ MD, Ot J45.909 UNSPECIFIED ASTHMA, UNCOMPLICATED 06/04/2019 STEFAN HERNANDEZ MD Ot R06.02 SHORTNESS OF BREATH 06/04/2019 STEFAN HERNANDEZ MD Ot R06.03 ACUTE RESPIRATORY DISTRESS 06/04/2019 STEFAN HERNANDEZ MD, Ot Z82.49 FAMILY HX OF ISCHEM HEART DIS AND OTH DI 06/04/2019 STEFAN HERNANDEZ MD, Ot Z86.12 PERSONAL HISTORY OF POLIOMYELITIS 06/04/2019 STEFAN HERNANDEZ MD, Ot Z87.891 PERSONAL HISTORY OF NICOTINE DEPENDENCE 06/04/2019 STEFAN HERNANDEZ MD, Ot Z88.6 ALLERGY STATUS TO ANALGESIC AGENT STATUS 06/04/2019 STEFAN HERNANDEZ MD Ot Z99.81 DEPENDENCE ON SUPPLEMENTAL OXYGEN Procedures Code Description [place] [address] OXIMETRY 08/19/2012 89702 OXIMETRY 12/10/2013 [id number] RE SPIRATORY VENTILATION, 24- 96 CONSECUTI 03/09/2017 [id number] EX CISION OF THORAX LYMPHATIC, PERC ENDO 05/21/2017 [id number] EX TRACTION OF L LOW LUNG LOBE, PERC ENDO 05/21/[id number] MCCOY OF RIGHT MIDDLE LUNG LOBE, ENDO 07/23/2018 [id number] EX TIRPATION OF MATTER FROM RIGHT MAIN BR 07/23/2018 [id number] EX TIRPATION OF MATTER FROM LEFT MAIN BRO 07/23/2018 [id number] EX TRACTION OF RIGHT MIDDLE LUNG LOBE, EN 07/23/2018 [id number] RE PAIR SCALP SKIN, EXTERNAL APPROACH 02/18/2019 [id number] SISTANCE WITH RESPIRATORY VENTILATION, 04/04/2019 Results Test Result Range Complete blood count (CBC) with automate d white blood cell (WBC) differential - 11/20/15 07:30 Blood leukocytes automated count (number/volume) 4.6 10*3/uL 4.3-11.0 Blood erythrocytes automated count (number/volume) 4.62 10*6/uL 4.35-5.85 Venous blood hemoglobin measurement (mass/volume) 14.4 g/dL 13.3-17.7 Blood hematocrit (volume fraction) 41 % 40-54 Automated erythrocyte mean corpuscular volume 89 [ foz_us] 80-99 Automated erythrocyte mean corpuscular h emoglobin (mass per erythrocyte) 31 pg 25-34 Automated erythrocyte mean corpuscular h emoglobin concentration measurement (mass/volume) 35 g/dL 32-36 Automated erythrocyte distribution width ratio 14. 8 % 10.0- 14.5 Automated blood platelet count (count/volume) 180 10*3/uL [...] 10*3 1.0-4.0 Blood monocytes automated count (number/volume) 1. 0 10*3 0.0-1.0 Automated eosinophil count 0.0 10*3/uL 0 .0-0.3 Automated blood basophil count (count/volume) 0.0 10*3/uL 0.0-0.1 Blood manual differential performed dete ction - 11/20/15 07:30 Blood monocytes/100 leukocytes 31 % NRG Manual blood segmented neutrophils/100 leukocytes 46 % NRG Blood band neutrophils/100 leukocytes 0 % NRG Manual blood lymphocytes/100 leukocytes 23 % NRG Manual eosinophils/100 leukocytes in nose 0 % NRG Manual blood basophils/100 leukocytes 0 % NR Blood erythrocyte morphology finding identification NORMAL NR Comprehensive metabolic panel - 11/20/15 07:30 Serum or plasma sodium measurement (moles/volume) 131 mmol/L 135-145 Serum or plasma potassium measurement (moles/volume) 4.1 mmol/L 3.6-5.0 Serum or plasma chloride measurement (moles/volume) 97 mmol/L 98-107 Carbon dioxide 25 mmol/L 21-32 Serum or plasma anion gap determination (moles/volume) 9 mmol/L 5-14 Serum or plasma urea nitrogen measurement (mass/volume ) 6 mg/dL 7-18 Serum or plasma creatinine measurement (mass/volume) 0.71 mg/dL 0.60-1.30 Serum or plasma urea nitrogen/creatinine mass ratio 8 NRG Serum or plasma creatinine measurement w ith calculation of estimated glomerular filtration rate > NRG Serum or plasma glucose measurement (mass/volume) 106 mg/dL 70-105 Serum or plasma calcium measurement (mass/volume) 8.7 mg/dL 8.5-10.1 Serum or plasma total bilirubin measurement (mass/volu me) 0.2 mg/dL 0.1-1.0 Serum or plasma alkaline phosphatase mick surement (enzymatic activity/volume) 138 U/L 40-136 Serum or plasma aspartate aminotransfera se measurement (enzymatic activity/volume) 14 U/L 5-34 Serum or plasma alanine aminotransferase measurement (enzymatic activity/volume) 9 U/L 0-55 Serum or plasma protein measurement (mass/volume) 6.4 g/dL 6.4-8.2 Serum or plasma albumin measurement (mass/volume) 4.0 g/dL 3.2-4.5 Serum or plasma creatine kinase measurem ent (enzymatic activity/volume) - 11/20/15 07:30 Serum or plasma creatine kinase measurem ent (enzymatic activity/volume) 66 U/L 30-200 Ammonia - 11/20/15 07:30 Ammonia 31 umol/L 11-32 Serum or plasma C reactive protein measu rement (mass/volume) - 11/20/15 07:30 Serum or plasma C reactive protein measurement (mass/v olume) 1.09 mg/dL 0.00-0.50 Serum or plasma salicylates measurement (mass/volume) - 11/20/15 07:30 Serum or plasma salicylates measurement (mass/volume) < mg/dL 5.0-20.0 Serum or plasma acetaminophen measuremen t (mass/volume) - 11/20/15 07:30 Serum or plasma acetaminophen measurement (mass/volume ) < ug/mL 10-30 Serum or plasma ethanol measurement (mas s/volume) - 11/20/15 07:30 Serum or plasma ethanol measurement (mass/volume) < mg/dL <10 Blood lactic acid measurement (moles/vol ume) - 11/20/15 07:42 Blood lactic acid measurement (moles/volume) 0.9 m mol/L 0.5- 2.0 Serum or plasma phenytoin measurement (m ass/volume) - 11/20/15 07:42 Serum or plasma phenytoin measurement (mass/volume) 13.3 ug/mL 10.0-20.0 Serum or plasma carbamazepine measuremen t (mass/volume) - 11/20/15 07:42 Serum or plasma carbamazepine measurement (mass/volume ) 9.8 ug/mL 4.0-12.0 Arterial blood gas measurement - 6 07:45 Blood pCO2 48 mm[Hg] 35-45 Blood pO2 59 mm[Hg] 79-93 Arterial blood bicarbonate measurement (moles/volume) 28 mmol/L 23-27 Arterial blood base excess by calculation 2.1 mmol /L -2.5-2.5 Arterial blood oxygen saturation measurement 92 % 94-100 * Inhaled oxygen flow rate RA NRG Arterial blood pH measurement with patient temperature correction 7.38 7.37-7.43 Arterial blood carbon dioxide, total measurement (mole s/volume) 29.7 mmol/L 21.0-31.0 Body site unk NRG Assessment of wrist artery patency prior to arterial p uncture YES-POS NRG Setting of ventilation mode NO NR G Measurement of body temperature 97.3 NRG Lamotrigine level - 11/20/15 08:05 Lamotrigine level 3.7 ug/mL 4.0-18.0 Complete urinalysis with reflex to cultu re - 11/20/15 08:45 Urine color determination YELLOW NRG Urine clarity determination CLEAR NR G Urine pH measurement by test strip 7 5-9 Specific gravity of urine by test strip 1.010 1.016-1.022 Urine protein assay by test strip, semi-quantitative NEGATIVE NEGATIVE Urine glucose detection by automated test strip NE GATIVE NEGATIVE Erythrocytes detection in urine sediment by light micr oscopy NEGATIVE NEGATIVE Urine ketones detection by automated test strip NE GATIVE NEGATIVE Urine nitrite detection by test strip NEGATIVE NEGATIVE Urine total bilirubin detection by test strip NEGA TIVE NEGATIVE Urine urobilinogen measurement by automated test strip (mass/volume) NORMAL NORMAL Urine leukocyte esterase detection by dipstick 1+ NEGATIVE Automated urine sediment erythrocyte cou nt by microscopy (number/high power field) NONE NRG Automated urine sediment leukocyte count by microscopy (number/high power field) RARE NRG Bacteria detection in urine sediment by light microsco py NEGATIVE NRG Squamous epithelial cells detection in u rine sediment by light microscopy 0-2 NRG Crystals detection in urine sediment by light microsco py NONE NRG Casts detection in urine sediment by light microscopy NONE NRG Mucus detection in urine sediment by light microscopy SMALL NRG Complete urinalysis with reflex to culture NO NRG Urine drug screening test - 11/20/15 08: 45 Urine acetaminophen detection by screening method NEGATIVE NEGATIVE Urine phencyclidine detection by screening method NEGATIVE NEGATIVE Urine benzodiazepines detection by screening method NEGATIVE NEGATIVE Urine cocaine detection NEGATIVE NEGATI VE Urine amphetamines detection by screening method N EGATIVE NEGATIVE Urine methamphetamine detection by screening method NEGATIVE NEGATIVE Urine cannabinoids detection by screening method N EGATIVE NEGATIVE Urine opiates detection by screening method NEGATI VE NEGATIVE Urine barbiturates detection NEGATIVE N EGATIVE Screening urine tricyclic antidepressants detection POSITIVE NEGATIVE Urine methadone detection by screening method NEGA TIVE NEGATIVE Serum or plasma phenytoin measurement (m ass/volume) - 12/13/15 16:25 Serum or plasma phenytoin measurement (mass/volume) 11.0 ug/mL 10.0-20.0 Serum or plasma carbamazepine measuremen t (mass/volume) - 12/13/15 16:25 Serum or plasma carbamazepine measurement (mass/volume ) 5.2 ug/mL 4.0-12.0 Complete blood count (CBC) with automate d white blood cell (WBC) differential - 02/21/16 09:49 Blood leukocytes automated count (number/volume) 6.3 10*3/uL 4.3-11.0 Blood erythrocytes automated count (number/volume) 4.38 10*6/uL 4.35-5.85 Venous blood hemoglobin measurement (mass/volume) 13.5 g/dL 13.3-17.7 Blood hematocrit (volume fraction) 39 % 40-54 Automated erythrocyte mean corpuscular volume 88 [ foz_us] 80-99 Automated erythrocyte mean corpuscular h emoglobin (mass per erythrocyte) 31 pg 25-34 Automated erythrocyte mean corpuscular h emoglobin concentration measurement (mass/volume) 35 g/dL 32-36 Automated erythrocyte distribution width ratio 15. 5 % 10.0- 14.5 Automated blood platelet count (count/volume) 204 10*3/uL [...] 10*3 1.0-4.0 Blood monocytes automated count (number/volume) 0. 6 10*3 0.0-1.0 Automated eosinophil count 0.0 10*3/uL 0 .0-0.3 Automated blood basophil count (count/volume) 0.0 10*3/uL 0.0-0.1 Comprehensive metabolic panel - 02/21/16 09:49 Serum or plasma sodium measurement (moles/volume) 134 mmol/L 135-145 Serum or plasma potassium measurement (moles/volume) 4.4 mmol/L 3.6-5.0 Serum or plasma chloride measurement (moles/volume) 101 mmol/L 98-107 Carbon dioxide 25 mmol/L 21-32 Serum or plasma anion gap determination (moles/volume) 8 mmol/L 5-14 Serum or plasma urea nitrogen measurement (mass/volume ) 12 mg/dL 7-18 Serum or plasma creatinine measurement (mass/volume) 0.75 mg/dL 0.60-1.30 Serum or plasma urea nitrogen/creatinine mass ratio 16 NRG Serum or plasma creatinine measurement w ith calculation of estimated glomerular filtration rate > NRG Serum or plasma glucose measurement (mass/volume) 96 mg/dL 70-105 Serum or plasma calcium measurement (mass/volume) 8.8 mg/dL 8.5-10.1 Serum or plasma total bilirubin measurement (mass/volu me) 0.3 mg/dL 0.1-1.0 Serum or plasma alkaline phosphatase mick surement (enzymatic activity/volume) 134 U/L 40-136 Serum or plasma aspartate aminotransfera se measurement (enzymatic activity/volume) 12 U/L 5-34 Serum or plasma alanine aminotransferase measurement (enzymatic activity/volume) 6 U/L 0-55 Serum or plasma protein measurement (mass/volume) 6.5 g/dL 6.4-8.2 Serum or plasma albumin measurement (mass/volume) 4.1 g/dL 3.2-4.5 THYROID STIMULATING HORMONE - 02/21/16 0 9:49 THYROID STIMULATING HORMONE 0.72 u[iU]/mL 0.35-4.94 Automated blood complete blood count (he mogram) panel - 08/20/16 11:11 Blood leukocytes automated count (number/volume) 5.7 10*3/uL 4.3-11.0 Blood erythrocytes automated count (number/volume) 4.47 10*6/uL 4.35-5.85 Venous blood hemoglobin measurement (mass/volume) 13.6 g/dL 13.3-17.7 Blood hematocrit (volume fraction) 40 % 40-54 Automated erythrocyte mean corpuscular volume 90 [ foz_us] 80-99 Automated erythrocyte mean corpuscular h emoglobin (mass per erythrocyte) 30 pg 25-34 Automated erythrocyte mean corpuscular h emoglobin concentration measurement (mass/volume) 34 g/dL 32-36 Automated erythrocyte distribution width ratio 14. 9 % 10.0- 14.5 Automated blood platelet count (count/volume) 194 10*3/uL [...] 5-14 Serum or plasma urea nitrogen measurement (mass/volume ) 11 mg/dL 7-18 Serum or plasma creatinine measurement (mass/volume) 0.73 mg/dL 0.60-1.30 Serum or plasma urea nitrogen/creatinine mass ratio 15 NRG Serum or plasma creatinine measurement w ith calculation of estimated glomerular filtration rate > NRG Serum or plasma glucose measurement (mass/volume) 96 mg/dL 70-105 Serum or plasma calcium measurement (mass/volume) 8.9 mg/dL 8.5-10.1 Serum or plasma total bilirubin measurement (mass/volu me) 0.3 mg/dL 0.1-1.0 Serum or plasma alkaline phosphatase mick surement (enzymatic activity/volume) 136 U/L 40-136 Serum or plasma aspartate aminotransfera se measurement (enzymatic activity/volume) 13 U/L 5-34 Serum or plasma alanine aminotransferase measurement (enzymatic activity/volume) 9 U/L 0-55 Serum or plasma protein measurement (mass/volume) 7.0 g/dL 6.4-8.2 Serum or plasma albumin measurement (mass/volume) 4.0 g/dL 3.2-4.5 Lipid 1996 panel - 08/20/16 11:11 Serum or plasma triglyceride measurement (mass/volume) 63 mg/dL <150 Serum or plasma cholesterol measurement (mass/volume) 277 mg/dL < 200 Serum or plasma cholesterol in HDL measurement (mass/v olume) 69 mg/dL 40-60 Cholesterol in LDL [mass/volume] in serum or plasma by direct assay 170 mg/dL 1-129 Serum or plasma cholesterol in VLDL measurement (mass/ volume) 13 mg/dL 5-40 Serum or plasma phenytoin measurement (m ass/volume) - 08/20/16 11:11 Serum or plasma phenytoin measurement (mass/volume) 8.6 ug/mL 10.0-20.0 Serum or plasma carbamazepine measuremen t (mass/volume) - 08/20/16 11:11 Serum or plasma carbamazepine measurement (mass/volume ) 8.4 ug/mL 4.0-12.0 Whole blood basic metabolic panel - 08/29 06/14 13:45 Serum or plasma sodium measurement (moles/volume) 132 mmol/L 135-145 Serum or plasma potassium measurement (moles/volume) 4.5 mmol/L 3.6-5.0 Serum or plasma chloride measurement (moles/volume) 95 mmol/L 98-107 Carbon dioxide 27 mmol/L 21-32 Serum or plasma anion gap determination (moles/volume) 10 mmol/L 5-14 Serum or plasma urea nitrogen measurement (mass/volume ) 8 mg/dL 7-18 Serum or plasma creatinine measurement (mass/volume) 0.74 mg/dL 0.60-1.30 Serum or plasma urea nitrogen/creatinine mass ratio 11 0-20 Serum or plasma creatinine measurement w ith calculation of estimated glomerular filtration rate > NRG Serum or plasma glucose measurement (mass/volume) 92 mg/dL 70-105 Serum or plasma calcium measurement (mass/volume) 9.4 mg/dL 8.5-10.1 Complete blood count (CBC) with automate d white blood cell (WBC) differential - 12/19/16 12:37 Blood leukocytes automated count (number/volume) 9.7 10*3/uL 4.3-11.0 Blood erythrocytes automated count (number/volume) 4.41 10*6/uL 4.35-5.85 Venous blood hemoglobin measurement (mass/volume) 13.8 g/dL 13.3-17.7 Blood hematocrit (volume fraction) 41 % 40-54 Automated erythrocyte mean corpuscular volume 92 [ foz_us] 80-99 Automated erythrocyte mean corpuscular h emoglobin (mass per erythrocyte) 31 pg 25-34 Automated erythrocyte mean corpuscular h emoglobin concentration measurement (mass/volume) 34 g/dL 32-36 Automated erythrocyte distribution width ratio 15. 0 % 10.0- 14.5 Automated blood platelet count (count/volume) 239 10*3/uL [...] 10*3 1.0-4.0 Blood monocytes automated count (number/volume) 0. 8 10*3 0.0-1.0 Automated eosinophil count 0.0 10*3/uL 0 .0-0.3 Automated blood basophil count (count/volume) 0.0 10*3/uL 0.0-0.1 Automated blood complete blood count (he mogram) panel - 01/14/17 13:06 Blood leukocytes automated count (number/volume) 10.1 10*3/uL 4.3-11.0 Blood erythrocytes automated count (number/volume) 4.50 10*6/uL 4.35-5.85 Venous blood hemoglobin measurement (mass/volume) 13.9 g/dL 13.3-17.7 Blood hematocrit (volume fraction) 41 % 40-54 Automated erythrocyte mean corpuscular volume 92 [ foz_us] 80-99 Automated erythrocyte mean corpuscular h emoglobin (mass per erythrocyte) 31 pg 25-34 Automated erythrocyte mean corpuscular h emoglobin concentration measurement (mass/volume) 34 g/dL 32-36 Automated erythrocyte distribution width ratio 14. 7 % 10.0- 14.5 Automated blood platelet count (count/volume) 202 10*3/uL [...] 5-14 Serum or plasma urea nitrogen measurement (mass/volume ) 8 mg/dL 7-18 Serum or plasma creatinine measurement (mass/volume) 0.65 mg/dL 0.60-1.30 Serum or plasma urea nitrogen/creatinine mass ratio 12 NRG Serum or plasma creatinine measurement w ith calculation of estimated glomerular filtration rate > NRG Serum or plasma glucose measurement (mass/volume) 115 mg/dL 70-105 Serum or plasma calcium measurement (mass/volume) 9.2 mg/dL 8.5-10.1 Serum or plasma total bilirubin measurement (mass/volu me) 0.4 mg/dL 0.1-1.0 Serum or plasma alkaline phosphatase mick surement (enzymatic activity/volume) 106 U/L 40-136 Serum or plasma aspartate aminotransfera se measurement (enzymatic activity/volume) 20 U/L 5-34 Serum or plasma alanine aminotransferase measurement (enzymatic activity/volume) 11 U/L 0-55 Serum or plasma protein measurement (mass/volume) 7.3 g/dL 6.4-8.2 Serum or plasma albumin measurement (mass/volume) 3.8 g/dL 3.2-4.5 Serum or plasma phenytoin measurement (m ass/volume) - 01/14/17 13:06 Serum or plasma phenytoin measurement (mass/volume) 7.9 ug/mL 10.0-20.0 Serum or plasma carbamazepine measuremen t (mass/volume) - 01/14/17 13:06 Serum or plasma carbamazepine measurement (mass/volume ) 5.9 ug/mL 4.0-12.0 Complete blood count (CBC) with automate d white blood cell (WBC) differential - 02/04/17 15:15 Blood leukocytes automated count (number/volume) 10.3 10*3/uL 4.3-11.0 Blood erythrocytes automated count (number/volume) 4.32 10*6/uL 4.35-5.85 Venous blood hemoglobin measurement (mass/volume) 13.5 g/dL 13.3-17.7 Blood hematocrit (volume fraction) 40 % 40-54 Automated erythrocyte mean corpuscular volume 92 [ foz_us] 80-99 Automated erythrocyte mean corpuscular h emoglobin (mass per erythrocyte) 31 pg 25-34 Automated erythrocyte mean corpuscular h emoglobin concentration measurement (mass/volume) 34 g/dL 32-36 Automated erythrocyte distribution width ratio 14. 6 % 10.0- 14.5 Automated blood platelet count (count/volume) 259 10*3/uL [...] 10*3 1.0-4.0 Blood monocytes automated count (number/volume) 0. 9 10*3 0.0-1.0 Automated eosinophil count 0.0 10*3/uL 0 .0-0.3 Automated blood basophil count (count/volume) 0.0 10*3/uL 0.0-0.1 Comprehensive metabolic panel - 02/04/17 15:15 Serum or plasma sodium measurement (moles/volume) 130 mmol/L 135-145 Serum or plasma potassium measurement (moles/volume) 4.9 mmol/L 3.6-5.0 Serum or plasma chloride measurement (moles/volume) 87 mmol/L 98-107 Carbon dioxide 35 mmol/L 21-32 Serum or plasma anion gap determination (moles/volume) 8 mmol/L 5-14 Serum or plasma urea nitrogen measurement (mass/volume ) 5 mg/dL 7-18 Serum or plasma creatinine measurement (mass/volume) 0.63 mg/dL 0.60-1.30 Serum or plasma urea nitrogen/creatinine mass ratio 8 NRG Serum or plasma creatinine measurement w ith calculation of estimated glomerular filtration rate > NRG Serum or plasma glucose measurement (mass/volume) 96 mg/dL 70-105 Serum or plasma calcium measurement (mass/volume) 9.0 mg/dL 8.5-10.1 Serum or plasma total bilirubin measurement (mass/volu me) 0.3 mg/dL 0.1-1.0 Serum or plasma alkaline phosphatase mick surement (enzymatic activity/volume) 156 U/L 40-136 Serum or plasma aspartate aminotransfera se measurement (enzymatic activity/volume) 14 U/L 5-34 Serum or plasma alanine aminotransferase measurement (enzymatic activity/volume) 10 U/L 0-55 Serum or plasma protein measurement (mass/volume) 7.0 g/dL 6.4-8.2 Serum or plasma albumin measurement (mass/volume) 3.8 g/dL 3.2-4.5 Complete blood count (CBC) with automate d white blood cell (WBC) differential - 02/28/17 12:27 Blood leukocytes automated count (number/volume) 15.6 10*3/uL 4.3-11.0 Blood erythrocytes automated count (number/volume) 3.98 10*6/uL 4.35-5.85 Venous blood hemoglobin measurement (mass/volume) 12.2 g/dL 13.3-17.7 Blood hematocrit (volume fraction) 37 % 40-54 Automated erythrocyte mean corpuscular volume 92 [ foz_us] 80-99 Automated erythrocyte mean corpuscular h emoglobin (mass per erythrocyte) 31 pg 25-34 Automated erythrocyte mean corpuscular h emoglobin concentration measurement (mass/volume) 33 g/dL 32-36 Automated erythrocyte distribution width ratio 14. 4 % 10.0- 14.5 Automated blood platelet count (count/volume) 237 10*3/uL [...] 10*3 1.0-4.0 Blood monocytes automated count (number/volume) 1. 3 10*3 0.0-1.0 Automated eosinophil count 0.0 10*3/uL 0 .0-0.3 Automated blood basophil count (count/volume) 0.0 10*3/uL 0.0-0.1 Arterial blood gas measurement - 7 12:27 Blood pCO2 66 mm[Hg] 35-45 Blood pO2 90 mm[Hg] 79-93 Arterial blood bicarbonate measurement (moles/volume) 37 mmol/L 23-27 Arterial blood base excess by calculation 11.2 mmo l/L -2.5-2.5 Arterial blood oxygen saturation measurement 98 % 94-100 * Inhaled oxygen flow rate 3 NRG Arterial blood pH measurement with patient temperature correction 7.37 7.37-7.43 Arterial blood carbon dioxide, total measurement (mole s/volume) 38.9 mmol/L 21.0-31.0 Body site R RAD NRG Assessment of wrist artery patency prior to arterial p uncture YES-POS NRG Setting of ventilation mode NO NR G Measurement of body temperature 98.8 NRG Comprehensive metabolic panel - 02/28/17 12:27 Serum or plasma sodium measurement (moles/volume) 133 mmol/L 135-145 Serum or plasma potassium measurement (moles/volume) 4.4 mmol/L 3.6-5.0 Serum or plasma chloride measurement (moles/volume) 89 mmol/L 98-107 Carbon dioxide 36 mmol/L 21-32 Serum or plasma anion gap determination (moles/volume) 8 mmol/L 5-14 Serum or plasma urea nitrogen measurement (mass/volume ) 9 mg/dL 7-18 Serum or plasma creatinine measurement (mass/volume) 0.64 mg/dL 0.60-1.30 Serum or plasma urea nitrogen/creatinine mass ratio 14 NRG Serum or plasma creatinine measurement w ith calculation of estimated glomerular filtration rate > NRG Serum or plasma glucose measurement (mass/volume) 113 mg/dL 70-105 Serum or plasma calcium measurement (mass/volume) 9.2 mg/dL 8.5-10.1 Serum or plasma total bilirubin measurement (mass/volu me) 0.3 mg/dL 0.1-1.0 Serum or plasma alkaline phosphatase mick surement (enzymatic activity/volume) 133 U/L 40-136 Serum or plasma aspartate aminotransfera se measurement (enzymatic activity/volume) 10 U/L 5-34 Serum or plasma alanine aminotransferase measurement (enzymatic activity/volume) 8 U/L 0-55 Serum or plasma protein measurement (mass/volume) 7.4 g/dL 6.4-8.2 Serum or plasma albumin measurement (mass/volume) 3.8 g/dL 3.2-4.5 Blood manual differential performed dete ction - 02/28/17 12:27 Blood monocytes/100 leukocytes 8 % NRG Manual blood segmented neutrophils/100 leukocytes 88 % NRG Blood band neutrophils/100 leukocytes 0 % NRG Manual blood lymphocytes/100 leukocytes 4 % NRG Manual eosinophils/100 leukocytes in nose 0 % NRG Manual blood basophils/100 leukocytes 0 % NRG Blood erythrocyte morphology finding identification NORMAL NRG Serum or plasma lithium measurement (mol es/volume) - 02/28/17 12:27 BNP level 60.4 pg/mL <100.0 Blood lactic acid measurement (moles/vol ume) - 02/28/17 13:52 Blood lactic acid measurement (moles/volume) 1.38 mmol/L 0.50-2.00 Bacterial blood culture - 02/28/17 13:52 Bacterial blood culture NG NRG Bacterial blood culture - 02/28/17 14:14 Bacterial blood culture NG NRG Complete blood count (CBC) with automate d white blood cell (WBC) differential - 03/01/17 04:56 Blood leukocytes automated count (number/volume) 15.1 10*3/uL 4.3-11.0 Blood erythrocytes automated count (number/volume) 3.59 10*6/uL 4.35-5.85 Venous blood hemoglobin measurement (mass/volume) 11.1 g/dL 13.3-17.7 Blood hematocrit (volume fraction) 34 % 40-54 Automated erythrocyte mean corpuscular volume 93 [ foz_us] 80-99 Automated erythrocyte mean corpuscular h emoglobin (mass per erythrocyte) 31 pg 25-34 Automated erythrocyte mean corpuscular h emoglobin concentration measurement (mass/volume) 33 g/dL 32-36 Automated erythrocyte distribution width ratio 14. 2 % 10.0- 14.5 Automated blood platelet count (count/volume) 203 10*3/uL [...] 10*3 1.0-4.0 Blood monocytes automated count (number/volume) 1. 3 10*3 0.0-1.0 Automated eosinophil count 0.0 10*3/uL 0 .0-0.3 Automated blood basophil count (count/volume) 0.0 10*3/uL 0.0-0.1 Complete blood count (CBC) with automate d white blood cell (WBC) differential - 03/03/17 05:45 Blood leukocytes automated count (number/volume) 8.0 10*3/uL 4.3-11.0 Blood erythrocytes automated count (number/volume) 3.54 10*6/uL 4.35-5.85 Venous blood hemoglobin measurement (mass/volume) 10.7 g/dL 13.3-17.7 Blood hematocrit (volume fraction) 32 % 40-54 Automated erythrocyte mean corpuscular volume 91 [ foz_us] 80-99 Automated erythrocyte mean corpuscular h emoglobin (mass per erythrocyte) 30 pg 25-34 Automated erythrocyte mean corpuscular h emoglobin concentration measurement (mass/volume) 33 g/dL 32-36 Automated erythrocyte distribution width ratio 14. 3 % 10.0- 14.5 Automated blood platelet count (count/volume) 241 10*3/uL [...] 10*3 1.0-4.0 Blood monocytes automated count (number/volume) 0. 7 10*3 0.0-1.0 Automated eosinophil count 0.0 10*3/uL 0 .0-0.3 Automated blood basophil count (count/volume) 0.0 10*3/uL 0.0-0.1 Whole blood basic metabolic panel - 12/07/15 05:45 Serum or plasma sodium measurement (moles/volume) 134 mmol/L 135-145 Serum or plasma potassium measurement (moles/volume) 4.5 mmol/L 3.6-5.0 Serum or plasma chloride measurement (moles/volume) 94 mmol/L 98-107 Carbon dioxide 32 mmol/L 21-32 Serum or plasma anion gap determination (moles/volume) 8 mmol/L 5-14 Serum or plasma urea nitrogen measurement (mass/volume ) 11 mg/dL 7-18 Serum or plasma creatinine measurement (mass/volume) 0.56 mg/dL 0.60-1.30 Serum or plasma urea nitrogen/creatinine mass ratio 20 NRG Serum or plasma creatinine measurement w ith calculation of estimated glomerular filtration rate > NRG Serum or plasma glucose measurement (mass/volume) 104 mg/dL 70-105 Serum or plasma calcium measurement (mass/volume) 8.7 mg/dL 8.5-10.1 Complete blood count (CBC) with automate d white blood cell (WBC) differential - 03/09/17 16:10 Blood leukocytes automated count (number/volume) 30.5 10*3/uL 4.3-11.0 Blood erythrocytes automated count (number/volume) 4.30 10*6/uL 4.35-5.85 Venous blood hemoglobin measurement (mass/volume) 12.9 g/dL 13.3-17.7 Blood hematocrit (volume fraction) 40 % 40-54 Automated erythrocyte mean corpuscular volume 93 [ foz_us] 80-99 Automated erythrocyte mean corpuscular h emoglobin (mass per erythrocyte) 30 pg 25-34 Automated erythrocyte mean corpuscular h emoglobin concentration measurement (mass/volume) 32 g/dL 32-36 Automated erythrocyte distribution width ratio 14. 9 % 10.0- 14.5 Automated blood platelet count (count/volume) 292 10*3/uL [...] 10*3 1.0-4.0 Blood monocytes automated count (number/volume) 2. 3 10*3 0.0-1.0 Automated eosinophil count 0.2 10*3/uL 0 .0-0.3 Automated blood basophil count (count/volume) 0.1 10*3/uL 0.0-0.1 Blood manual differential performed dete ction - 03/09/17 16:10 Blood monocytes/100 leukocytes 8 % NRG Manual blood segmented neutrophils/100 leukocytes 85 % NRG Blood band neutrophils/100 leukocytes 1 % NRG Manual blood lymphocytes/100 leukocytes 6 % NRG Blood erythrocyte morphology finding identification NORMAL NRG Blood toxic granules detection by light microscopy 1+ NRG Blood hypersegmented neutrophils detection by light mi croscopy SLIGHT NRG Blood lactic acid measurement (moles/vol ume) - 03/09/17 16:10 Blood lactic acid measurement (moles/volume) 0.87 mmol/L 0.50-2.00 Serum or plasma lithium measurement (mol es/volume) - 03/09/17 16:10 BNP level 208.6 pg/mL <100.0 Bacterial blood culture - 03/09/17 16:10 FREE TEXT EXTERNAL NO FURTHER STUDIES UNLESS REQUE STED NRG QUANTITY OF GROWTH . NRG Bacterial blood culture SEE [facility] [place] Comprehensive metabolic panel - 03/09/17 16:35 Serum or plasma sodium measurement (moles/volume) 132 mmol/L 135-145 Serum or plasma potassium measurement (moles/volume) 4.4 mmol/L 3.6-5.0 Serum or plasma chloride measurement (moles/volume) 88 mmol/L 98-107 Carbon dioxide 32 mmol/L 21-32 Serum or plasma anion gap determination (moles/volume) 12 mmol/L 5-14 Serum or plasma urea nitrogen measurement (mass/volume ) 9 mg/dL 7-18 Serum or plasma creatinine measurement (mass/volume) 0.54 mg/dL 0.60-1.30 Serum or plasma urea nitrogen/creatinine mass ratio 17 NRG Serum or plasma creatinine measurement w ith calculation of estimated glomerular filtration rate > NRG Serum or plasma glucose measurement (mass/volume) 76 mg/dL 70-105 Serum or plasma calcium measurement (mass/volume) 8.9 mg/dL 8.5-10.1 Serum or plasma total bilirubin measurement (mass/volu me) 0.5 mg/dL 0.1-1.0 Serum or plasma alkaline phosphatase mick surement (enzymatic activity/volume) 133 U/L 40-136 Serum or plasma aspartate aminotransfera se measurement (enzymatic activity/volume) 11 U/L 5-34 Serum or plasma alanine aminotransferase measurement (enzymatic activity/volume) 9 U/L 0-55 Serum or plasma protein measurement (mass/volume) 7.2 g/dL 6.4-8.2 Serum or plasma albumin measurement (mass/volume) 3.7 g/dL 3.2-4.5 Serum or plasma C reactive protein measu rement (mass/volume) - 03/09/17 16:35 Serum or plasma C reactive protein measurement (mass/v olume) > mg/dL 0.00-0.50 Bacterial blood culture - 03/09/17 16:57 Bacterial blood culture NG NRG Arterial blood gas measurement - 7 17:10 Blood pCO2 67 mm[Hg] 35-45 Blood pO2 68 mm[Hg] 79-93 Arterial blood bicarbonate measurement (moles/volume) 35 mmol/L 23-27 Arterial blood base excess by calculation 8.6 mmol /L -2.5-2.5 Arterial blood oxygen saturation measurement 95 % 94-100 * Inhaled oxygen flow rate 45% BIPAP NR G Arterial blood pH measurement with patient temperature correction 7.33 7.37-7.43 Arterial blood carbon dioxide, total measurement (mole s/volume) 36.7 mmol/L 21.0-31.0 Body site RT. RADIAL NRG Assessment of wrist artery patency prior to arterial p uncture POSITIVE NRG Setting of ventilation mode NO NR G Measurement of body temperature 97.5 NRG Arterial blood gas measurement - 7 19:51 Blood pCO2 78 mm[Hg] 35-45 Blood pO2 61 mm[Hg] 79-93 Arterial blood bicarbonate measurement (moles/volume) 32 mmol/L 23-27 Arterial blood base excess by calculation 5.1 mmol /L -2.5-2.5 Arterial blood oxygen saturation measurement 91 % 94-100 * Inhaled oxygen flow rate 40% NRG Arterial blood pH measurement with patient temperature correction 7.24 7.37-7.43 Arterial blood carbon dioxide, total measurement (mole s/volume) 34.6 mmol/L 21.0-31.0 Body site LEFT RADIAL NRG Assessment of wrist artery patency prior to arterial p uncture POSITIVE NRG Setting of ventilation mode YES NR G Measurement of body temperature 97.9 NRG Arterial blood gas measurement - 7 21:33 Blood pCO2 66 mm[Hg] 35-45 Blood pO2 67 mm[Hg] 79-93 Arterial blood bicarbonate measurement (moles/volume) 32 mmol/L 23-27 Arterial blood base excess by calculation 5.5 mmol /L -2.5-2.5 Arterial blood oxygen saturation measurement 95 % 94-100 * Inhaled oxygen flow rate 40% NRG Arterial blood pH measurement with patient temperature correction 7.30 7.37-7.43 Arterial blood carbon dioxide, total measurement (mole s/volume) 33.7 mmol/L 21.0-31.0 Body site L RAD NRG Assessment of wrist artery patency prior to arterial p uncture YES-POS NRG Setting of ventilation mode YES NR G Measurement of body temperature 97.9 NRG Complete urinalysis with reflex to cultu re - 03/10/17 02:55 Urine color determination Y NRG Urine clarity determination SLIGHTLY CLOUDY NRG Urine pH measurement by test strip 6 5-9 Specific gravity of urine by test strip 1.020 1.016-1.022 Urine protein assay by test strip, semi-quantitative 2+ NEGATIVE Urine glucose detection by automated test strip NE GATIVE NEGATIVE Erythrocytes detection in urine sediment by light micr oscopy 3+ NEGATIVE Urine ketones detection by automated test strip 1+ NEGATIVE Urine nitrite detection by test strip NEGATIVE NEGATIVE Urine total bilirubin detection by test strip NEGA TIVE NEGATIVE Urine urobilinogen measurement by automated test strip (mass/volume) NORMAL NORMAL Urine leukocyte esterase detection by dipstick 1+ NEGATIVE Automated urine sediment erythrocyte cou nt by microscopy (number/high power field) [HPF] NRG Automated urine sediment leukocyte count by microscopy (number/high power field) [HPF] NRG Bacteria detection in urine sediment by light microsco py TRACE NRG Squamous epithelial cells detection in u rine sediment by light microscopy 2-5 NRG Crystals detection in urine sediment by light microsco py NONE NRG Casts detection in urine sediment by light microscopy NONE NRG Mucus detection in urine sediment by light microscopy NEGATIVE NRG Complete urinalysis with reflex to culture YES NRG Bacterial urine culture - 03/10/17 02:55 Bacterial urine culture NG NRG Methicillin resistant Staphylococcus aur eus (MRSA) screening culture - 03/10/17 03:42 Methicillin resistant Staphylococcus aureus (MRSA) scr eening culture NEG NRG Complete blood count (CBC) with automate d white blood cell (WBC) differential - 03/10/17 03:50 Blood leukocytes automated count (number/volume) 23.2 10*3/uL 4.3-11.0 Blood erythrocytes automated count (number/volume) 3.18 10*6/uL 4.35-5.85 Venous blood hemoglobin measurement (mass/volume) 9.7 g/dL 13.3-17.7 Blood hematocrit (volume fraction) 30 % 40-54 Automated erythrocyte mean corpuscular volume 94 [ foz_us] 80-99 Automated erythrocyte mean corpuscular h emoglobin (mass per erythrocyte) 31 pg 25-34 Automated erythrocyte mean corpuscular h emoglobin concentration measurement (mass/volume) 33 g/dL 32-36 Automated erythrocyte distribution width ratio 14. 5 % 10.0- 14.5 Automated blood platelet count (count/volume) 224 10*3/uL [...] 10*3 1.0-4.0 Blood monocytes automated count (number/volume) 1. 3 10*3 0.0-1.0 Automated eosinophil count 0.0 10*3/uL 0 .0-0.3 Automated blood basophil count (count/volume) 0.0 10*3/uL 0.0-0.1 Comprehensive metabolic panel - 03/10/17 03:50 Serum or plasma sodium measurement (moles/volume) 133 mmol/L 135-145 Serum or plasma potassium measurement (moles/volume) 4.1 mmol/L 3.6-5.0 Serum or plasma chloride measurement (moles/volume) 95 mmol/L 98-107 Carbon dioxide 31 mmol/L 21-32 Serum or plasma anion gap determination (moles/volume) 7 mmol/L 5-14 Serum or plasma urea nitrogen measurement (mass/volume ) 10 mg/dL 7-18 Serum or plasma creatinine measurement (mass/volume) 0.58 mg/dL 0.60-1.30 Serum or plasma urea nitrogen/creatinine mass ratio 17 NRG Serum or plasma creatinine measurement w ith calculation of estimated glomerular filtration rate > NRG Serum or plasma glucose measurement (mass/volume) 137 mg/dL 70-105 Serum or plasma calcium measurement (mass/volume) 8.1 mg/dL 8.5-10.1 Serum or plasma total bilirubin measurement (mass/volu me) 0.4 mg/dL 0.1-1.0 Serum or plasma alkaline phosphatase mick surement (enzymatic activity/volume) 98 U/L 40-136 Serum or plasma aspartate aminotransfera se measurement (enzymatic activity/volume) 9 U/L 5-34 Serum or plasma alanine aminotransferase measurement (enzymatic activity/volume) 8 U/L 0-55 Serum or plasma protein measurement (mass/volume) 5.7 g/dL 6.4-8.2 Serum or plasma albumin measurement (mass/volume) 2.9 g/dL 3.2-4.5 Serum or plasma phosphate measurement (m ass/volume) - 03/10/17 03:50 Serum or plasma phosphate measurement (mass/volume) 2.3 mg/dL 2.3-4.7 Magnesium - 03/10/17 03:50 Magnesium 1.7 mg/dL 1.8-2.4 Arterial blood gas measurement - 7 04:47 Blood pCO2 60 mm[Hg] 35-45 Blood pO2 51 mm[Hg] 79-93 Arterial blood bicarbonate measurement (moles/volume) 32 mmol/L 23-27 Arterial blood base excess by calculation 6.4 mmol /L -2.5-2.5 Arterial blood oxygen saturation measurement 88 % 94-100 * Inhaled oxygen flow rate 30% NRG Arterial blood pH measurement with patient temperature correction 7.35 7.37-7.43 Arterial blood carbon dioxide, total measurement (mole s/volume) 33.9 mmol/L 21.0-31.0 Body site L RAD NRG Assessment of wrist artery patency prior to arterial p uncture YES-POS NRG Setting of ventilation mode YES NR G Measurement of body temperature 97.8 NRG Capillary blood glucose measurement by g lucometer (mass/volume) - 03/10/17 17:14 Capillary blood glucose measurement by glucometer (mas s/volume) 128 mg/dL 70-110 Vancomycin trough - 03/10/17 19:16 Vancomycin trough 5.4 ug/mL 10.0-20.0 Arterial blood gas measurement - 7 04:05 Blood pCO2 57 mm[Hg] 35-45 Blood pO2 105 mm[Hg] 79-93 Arterial blood bicarbonate measurement (moles/volume) 29 mmol/L 23-27 Arterial blood base excess by calculation 3.5 mmol /L -2.5-2.5 Arterial blood oxygen saturation measurement 98 % 94-100 * Inhaled oxygen flow rate 35% NRG Arterial blood pH measurement with patient temperature correction 7.32 7.37-7.43 Arterial blood carbon dioxide, total measurement (mole s/volume) 30.9 mmol/L 21.0-31.0 Body site LRAD NRG Assessment of wrist artery patency prior to arterial p uncture YES-POS NRG Setting of ventilation mode YES NR G Measurement of body temperature 97.9 NRG Complete blood count (CBC) with automate d white blood cell (WBC) differential - 03/11/17 04:05 Blood leukocytes automated count (number/volume) 9.0 10*3/uL 4.3-11.0 Blood erythrocytes automated count (number/volume) 2.94 10*6/uL 4.35-5.85 Venous blood hemoglobin measurement (mass/volume) 9.0 g/dL 13.3-17.7 Blood hematocrit (volume fraction) 27 % 40-54 Automated erythrocyte mean corpuscular volume 93 [ foz_us] 80-99 Automated erythrocyte mean corpuscular h emoglobin (mass per erythrocyte) 31 pg 25-34 Automated erythrocyte mean corpuscular h emoglobin concentration measurement (mass/volume) 33 g/dL 32-36 Automated erythrocyte distribution width ratio 14. 9 % 10.0- 14.5 Automated blood platelet count (count/volume) 188 10*3/uL [...] 10*3 1.0-4.0 Blood monocytes automated count (number/volume) 0. 4 10*3 0.0-1.0 Automated eosinophil count 0.0 10*3/uL 0 .0-0.3 Automated blood basophil count (count/volume) 0.0 10*3/uL 0.0-0.1 Comprehensive metabolic panel - 03/11/17 04:05 Serum or plasma sodium measurement (moles/volume) 139 mmol/L 135-145 Serum or plasma potassium measurement (moles/volume) 3.8 mmol/L 3.6-5.0 Serum or plasma chloride measurement (moles/volume) 104 mmol/L 98-107 Carbon dioxide 26 mmol/L 21-32 Serum or plasma anion gap determination (moles/volume) 9 mmol/L 5-14 Serum or plasma urea nitrogen measurement (mass/volume ) 7 mg/dL 7-18 Serum or plasma creatinine measurement (mass/volume) 0.52 mg/dL 0.60-1.30 Serum or plasma urea nitrogen/creatinine mass ratio 13 NRG Serum or plasma creatinine measurement w ith calculation of estimated glomerular filtration rate > NRG Serum or plasma glucose measurement (mass/volume) 134 mg/dL 70-105 Serum or plasma calcium measurement (mass/volume) 7.6 mg/dL 8.5-10.1 Serum or plasma total bilirubin measurement (mass/volu me) 0.2 mg/dL 0.1-1.0 Serum or plasma alkaline phosphatase mick surement (enzymatic activity/volume) 92 U/L 40-136 Serum or plasma aspartate aminotransfera se measurement (enzymatic activity/volume) 9 U/L 5-34 Serum or plasma alanine aminotransferase measurement (enzymatic activity/volume) < U/L 0-55 Serum or plasma protein measurement (mass/volume) 5.1 g/dL 6.4-8.2 Serum or plasma albumin measurement (mass/volume) 2.7 g/dL 3.2-4.5 Serum or plasma phosphate measurement (m ass/volume) - 03/11/17 04:05 Serum or plasma phosphate measurement (mass/volume) 2.1 mg/dL 2.3-4.7 Magnesium - 03/11/17 04:05 Magnesium 1.8 mg/dL 1.8-2.4 Complete blood count (CBC) with automate d white blood cell (WBC) differential - 03/12/17 04:29 Blood leukocytes automated count (number/volume) 6.3 10*3/uL 4.3-11.0 Blood erythrocytes automated count (number/volume) 3.35 10*6/uL 4.35-5.85 Venous blood hemoglobin measurement (mass/volume) 10.4 g/dL 13.3-17.7 Blood hematocrit (volume fraction) 31 % 40-54 Automated erythrocyte mean corpuscular volume 93 [ foz_us] 80-99 Automated erythrocyte mean corpuscular h emoglobin (mass per erythrocyte) 31 pg 25-34 Automated erythrocyte mean corpuscular h emoglobin concentration measurement (mass/volume) 34 g/dL 32-36 Automated erythrocyte distribution width ratio 15. 2 % 10.0- 14.5 Automated blood platelet count (count/volume) 245 10*3/uL [...] 10*3 1.0-4.0 Blood monocytes automated count (number/volume) 0. 4 10*3 0.0-1.0 Automated eosinophil count 0.0 10*3/uL 0 .0-0.3 Automated blood basophil count (count/volume) 0.0 10*3/uL 0.0-0.1 Comprehensive metabolic panel - 03/12/17 04:29 Serum or plasma sodium measurement (moles/volume) 140 mmol/L 135-145 Serum or plasma potassium measurement (moles/volume) 3.9 mmol/L 3.6-5.0 Serum or plasma chloride measurement (moles/volume) 101 mmol/L 98-107 Carbon dioxide 29 mmol/L 21-32 Serum or plasma anion gap determination (moles/volume) 10 mmol/L 5-14 Serum or plasma urea nitrogen measurement (mass/volume ) 8 mg/dL 7-18 Serum or plasma creatinine measurement (mass/volume) 0.58 mg/dL 0.60-1.30 Serum or plasma urea nitrogen/creatinine mass ratio 14 NRG Serum or plasma creatinine measurement w ith calculation of estimated glomerular filtration rate > NRG Serum or plasma glucose measurement (mass/volume) 116 mg/dL 70-105 Serum or plasma calcium measurement (mass/volume) 8.9 mg/dL 8.5-10.1 Serum or plasma total bilirubin measurement (mass/volu me) 0.1 mg/dL 0.1-1.0 Serum or plasma alkaline phosphatase mick surement (enzymatic activity/volume) 84 U/L 40-136 Serum or plasma aspartate aminotransfera se measurement (enzymatic activity/volume) 9 U/L 5-34 Serum or plasma alanine aminotransferase measurement (enzymatic activity/volume) 9 U/L 0-55 Serum or plasma protein measurement (mass/volume) 6.1 g/dL 6.4-8.2 Serum or plasma albumin measurement (mass/volume) 3.1 g/dL 3.2-4.5 Serum or plasma phosphate measurement (m ass/volume) - 03/12/17 04:29 Serum or plasma phosphate measurement (mass/volume) 2.5 mg/dL 2.3-4.7 Magnesium - 03/12/17 04:29 Magnesium 1.9 mg/dL 1.8-2.4 Arterial blood gas measurement - 7 05:10 Blood pCO2 52 mm[Hg] 35-45 Blood pO2 55 mm[Hg] 79-93 Arterial blood bicarbonate measurement (moles/volume) 31 mmol/L 23-27 Arterial blood base excess by calculation 5.5 mmol /L -2.5-2.5 Arterial blood oxygen saturation measurement 91 % 94-100 * Inhaled oxygen flow rate 30% NRG Arterial blood pH measurement with patient temperature correction 7.38 7.37-7.43 Arterial blood carbon dioxide, total measurement (mole s/volume) 32.1 mmol/L 21.0-31.0 Body site R RAD NRG Assessment of wrist artery patency prior to arterial p uncture YES-POS NRG Setting of ventilation mode YES NR G Measurement of body temperature 98.1 NRG Arterial blood gas measurement - 7 06:59 Blood pCO2 49 mm[Hg] 35-45 Blood pO2 63 mm[Hg] 79-93 Arterial blood bicarbonate measurement (moles/volume) 31 mmol/L 23-27 Arterial blood base excess by calculation 5.6 mmol /L -2.5-2.5 Arterial blood oxygen saturation measurement 95 % 94-100 * Inhaled oxygen flow rate 30% NRG Arterial blood pH measurement with patient temperature correction 7.41 7.37-7.43 Arterial blood carbon dioxide, total measurement (mole s/volume) 32.1 mmol/L 21.0-31.0 Body site R RAD NRG Assessment of wrist artery patency prior to arterial p uncture YES-POS NRG Setting of ventilation mode YES NR G Measurement of body temperature 96.1 NRG Complete urinalysis with reflex to cultu re - 03/12/17 07:57 Urine color determination YELLOW NRG Urine clarity determination CLEAR NR G Urine pH measurement by test strip 6 5-9 Specific gravity of urine by test strip 1.020 1.016-1.022 Urine protein assay by test strip, semi-quantitative 1+ NEGATIVE Urine glucose detection by automated test strip NE GATIVE NEGATIVE Erythrocytes detection in urine sediment by light micr oscopy 2+ NEGATIVE Urine ketones detection by automated test strip 1+ NEGATIVE Urine nitrite detection by test strip NEGATIVE NEGATIVE Urine total bilirubin detection by test strip NEGA TIVE NEGATIVE Urine urobilinogen measurement by automated test strip (mass/volume) NORMAL NORMAL Urine leukocyte esterase detection by dipstick 2+ NEGATIVE Automated urine sediment erythrocyte cou nt by microscopy (number/high power field) [HPF] NRG Automated urine sediment leukocyte count by microscopy (number/high power field) [HPF] NRG Bacteria detection in urine sediment by light microsco py TRACE NRG Squamous epithelial cells detection in u rine sediment by light microscopy 0-2 NRG Crystals detection in urine sediment by light microsco py NONE NRG Casts detection in urine sediment by light microscopy NONE NRG Mucus detection in urine sediment by light microscopy SMALL NRG Complete urinalysis with reflex to culture YES NRG Bacterial urine culture - 03/12/17 07:57 Bacterial urine culture NG NRG Complete blood count (CBC) with automate d white blood cell (WBC) differential - 03/13/17 04:42 Blood leukocytes automated count (number/volume) 6.8 10*3/uL 4.3-11.0 Blood erythrocytes automated count (number/volume) 3.39 10*6/uL 4.35-5.85 Venous blood hemoglobin measurement (mass/volume) 10.3 g/dL 13.3-17.7 Blood hematocrit (volume fraction) 31 % 40-54 Automated erythrocyte mean corpuscular volume 92 [ foz_us] 80-99 Automated erythrocyte mean corpuscular h emoglobin (mass per erythrocyte) 30 pg 25-34 Automated erythrocyte mean corpuscular h emoglobin concentration measurement (mass/volume) 33 g/dL 32-36 Automated erythrocyte distribution width ratio 15. 1 % 10.0- 14.5 Automated blood platelet count (count/volume) 261 10*3/uL [...] 10*3 1.0-4.0 Blood monocytes automated count (number/volume) 0. 6 10*3 0.0-1.0 Automated eosinophil count 0.0 10*3/uL 0 .0-0.3 Automated blood basophil count (count/volume) 0.0 10*3/uL 0.0-0.1 Comprehensive metabolic panel - 03/13/17 04:42 Serum or plasma sodium measurement (moles/volume) 142 mmol/L 135-145 Serum or plasma potassium measurement (moles/volume) 3.7 mmol/L 3.6-5.0 Serum or plasma chloride measurement (moles/volume) 102 mmol/L 98-107 Carbon dioxide 30 mmol/L 21-32 Serum or plasma anion gap determination (moles/volume) 10 mmol/L 5-14 Serum or plasma urea nitrogen measurement (mass/volume ) 13 mg/dL 7-18 Serum or plasma creatinine measurement (mass/volume) 0.84 mg/dL 0.60-1.30 Serum or plasma urea nitrogen/creatinine mass ratio 15 NRG Serum or plasma creatinine measurement w ith calculation of estimated glomerular filtration rate > NRG Serum or plasma glucose measurement (mass/volume) 171 mg/dL 70-105 Serum or plasma calcium measurement (mass/volume) 7.8 mg/dL 8.5-10.1 Serum or plasma total bilirubin measurement (mass/volu me) 0.2 mg/dL 0.1-1.0 Serum or plasma alkaline phosphatase mick surement (enzymatic activity/volume) 88 U/L 40-136 Serum or plasma aspartate aminotransfera se measurement (enzymatic activity/volume) 11 U/L 5-34 Serum or plasma alanine aminotransferase measurement (enzymatic activity/volume) 6 U/L 0-55 Serum or plasma protein measurement (mass/volume) 4.9 g/dL 6.4-8.2 Serum or plasma albumin measurement (mass/volume) 2.9 g/dL 3.2-4.5 Serum or plasma phosphate measurement (m ass/volume) - 03/13/17 04:42 Serum or plasma phosphate measurement (mass/volume) 2.4 mg/dL 2.3-4.7 Magnesium - 03/13/17 04:42 Magnesium 1.7 mg/dL 1.8-2.4 Complete blood count (CBC) with automate d white blood cell (WBC) differential - 03/14/17 05:40 Blood leukocytes automated count (number/volume) 5.8 10*3/uL 4.3-11.0 Blood erythrocytes automated count (number/volume) 3.10 10*6/uL 4.35-5.85 Venous blood hemoglobin measurement (mass/volume) 9.4 g/dL 13.3-17.7 Blood hematocrit (volume fraction) 29 % 40-54 Automated erythrocyte mean corpuscular volume 92 [ foz_us] 80-99 Automated erythrocyte mean corpuscular h emoglobin (mass per erythrocyte) 30 pg 25-34 Automated erythrocyte mean corpuscular h emoglobin concentration measurement (mass/volume) 33 g/dL 32-36 Automated erythrocyte distribution width ratio 14. 9 % 10.0- 14.5 Automated blood platelet count (count/volume) 229 10*3/uL [...] 10*3 1.0-4.0 Blood monocytes automated count (number/volume) 0. 8 10*3 0.0-1.0 Automated eosinophil count 0.0 10*3/uL 0 .0-0.3 Automated blood basophil count (count/volume) 0.0 10*3/uL 0.0-0.1 Comprehensive metabolic panel - 03/14/17 05:40 Serum or plasma sodium measurement (moles/volume) 140 mmol/L 135-145 Serum or plasma potassium measurement (moles/volume) 3.7 mmol/L 3.6-5.0 Serum or plasma chloride measurement (moles/volume) 100 mmol/L 98-107 Carbon dioxide 34 mmol/L 21-32 Serum or plasma anion gap determination (moles/volume) 6 mmol/L 5-14 Serum or plasma urea nitrogen measurement (mass/volume ) 10 mg/dL 7-18 Serum or plasma creatinine measurement (mass/volume) 0.55 mg/dL 0.60-1.30 Serum or plasma urea nitrogen/creatinine mass ratio 18 NRG Serum or plasma creatinine measurement w ith calculation of estimated glomerular filtration rate > NRG Serum or plasma glucose measurement (mass/volume) 130 mg/dL 70-105 Serum or plasma calcium measurement (mass/volume) 7.9 mg/dL 8.5-10.1 Serum or plasma total bilirubin measurement (mass/volu me) < mg/dL 0.1-1.0 Serum or plasma alkaline phosphatase mick surement (enzymatic activity/volume) 79 U/L 40-136 Serum or plasma aspartate aminotransfera se measurement (enzymatic activity/volume) 11 U/L 5-34 Serum or plasma alanine aminotransferase measurement (enzymatic activity/volume) 8 U/L 0-55 Serum or plasma protein measurement (mass/volume) 5.3 g/dL 6.4-8.2 Serum or plasma albumin measurement (mass/volume) 2.8 g/dL 3.2-4.5 Serum or plasma phosphate measurement (m ass/volume) - 03/14/17 05:40 Serum or plasma phosphate measurement (mass/volume) 2.6 mg/dL 2.3-4.7 Magnesium - 03/14/17 05:40 Magnesium 1.8 mg/dL 1.8-2.4 Complete urinalysis with reflex to cultu re - 03/30/17 04:50 Urine color determination YELLOW NRG Urine clarity determination CLEAR NR G Urine pH measurement by test strip 8 5-9 Specific gravity of urine by test strip 1.010 1.016-1.022 Urine protein assay by test strip, semi-quantitative NEGATIVE NEGATIVE Urine glucose detection by automated test strip NE GATIVE NEGATIVE Erythrocytes detection in urine sediment by light micr oscopy NEGATIVE NEGATIVE Urine ketones detection by automated test strip NE GATIVE NEGATIVE Urine nitrite detection by test strip NEGATIVE NEGATIVE Urine total bilirubin detection by test strip NEGA TIVE NEGATIVE Urine urobilinogen measurement by automated test strip (mass/volume) NORMAL NORMAL Urine leukocyte esterase detection by dipstick NEG ATIVE NEGATIVE Automated urine sediment erythrocyte cou nt by microscopy (number/high power field) NONE NRG Automated urine sediment leukocyte count by microscopy (number/high power field) NONE NRG Bacteria detection in urine sediment by light microsco py NEGATIVE NRG Squamous epithelial cells detection in u rine sediment by light microscopy 0-2 NRG Crystals detection in urine sediment by light microsco py NONE NRG Casts detection in urine sediment by light microscopy NONE NRG Mucus detection in urine sediment by light microscopy NEGATIVE NRG Complete urinalysis with reflex to culture NO NRG Complete blood count (CBC) with automate d white blood cell (WBC) differential - 03/30/17 05:05 Blood leukocytes automated count (number/volume) 7.5 10*3/uL 4.3-11.0 Blood erythrocytes automated count (number/volume) 3.81 10*6/uL 4.35-5.85 Venous blood hemoglobin measurement (mass/volume) 11.7 g/dL 13.3-17.7 Blood hematocrit (volume fraction) 37 % 40-54 Automated erythrocyte mean corpuscular volume 96 [ foz_us] 80-99 Automated erythrocyte mean corpuscular h emoglobin (mass per erythrocyte) 31 pg 25-34 Automated erythrocyte mean corpuscular h emoglobin concentration measurement (mass/volume) 32 g/dL 32-36 Automated erythrocyte distribution width ratio 16. 8 % 10.0- 14.5 Automated blood platelet count (count/volume) 217 10*3/uL 130-400 Automated blood platelet mean volume measurement 9.4 [foz_us] 7.4-10.4 Automated blood neutrophils/100 leukocytes 72 % 42-75 Automated blood lymphocytes/100 leukocytes 13 % 12-44 Blood monocytes/100 leukocytes 15 % 0-12 Automated blood eosinophils/100 leukocytes 0 % 0-10 Automated blood basophils/100 leukocytes 0 % 0-10 Blood neutrophils automated count (number/volume) 5.4 10*3 1.8-7.8 Blood lymphocytes automated count (number/volume) 1.0 10*3 1.0-4.0 Blood monocytes automated count (number/volume) 1. 1 10*3 0.0-1.0 Automated eosinophil count 0.0 10*3/uL 0 .0-0.3 Automated blood basophil count (count/volume) 0.0 10*3/uL 0.0-0.1 PT panel in platelet poor plasma by coag ulation assay - 03/30/17 05:05 Prothrombin time (PT) in platelet poor plasma by coagu lation assay 12.6 s 12.2-14.7 INR in platelet poor plasma or blood by coagulation as say 0.9 0.8-1.4 Activated partial thromboplastin time (a PTT) in platelet poor plasma bycoagulation assay - 03/30/17 05:05 Activated partial thromboplastin time (a PTT) in platelet poor plasma bycoagulation assay 39 s 24-35 Blood lactic acid measurement (moles/vol ume) - 03/30/17 05:05 Blood lactic acid measurement (moles/volume) 1.14 mmol/L 0.50-2.00 Comprehensive metabolic panel - 03/30/17 05:05 Serum or plasma sodium measurement (moles/volume) 138 mmol/L 135-145 Serum or plasma potassium measurement (moles/volume) 4.6 mmol/L 3.6-5.0 Serum or plasma chloride measurement (moles/volume) 95 mmol/L 98-107 Carbon dioxide 34 mmol/L 21-32 Serum or plasma anion gap determination (moles/volume) 9 mmol/L 5-14 Serum or plasma urea nitrogen measurement (mass/volume ) 8 mg/dL 7-18 Serum or plasma creatinine measurement (mass/volume) 0.66 mg/dL 0.60-1.30 Serum or plasma urea nitrogen/creatinine mass ratio 12 NRG Serum or plasma creatinine measurement w ith calculation of estimated glomerular filtration rate > NRG Serum or plasma glucose measurement (mass/volume) 114 mg/dL 70-105 Serum or plasma calcium measurement (mass/volume) 9.4 mg/dL 8.5-10.1 Serum or plasma total bilirubin measurement (mass/volu me) 0.4 mg/dL 0.1-1.0 Serum or plasma alkaline phosphatase mick surement (enzymatic activity/volume) 140 U/L 40-136 Serum or plasma aspartate aminotransfera se measurement (enzymatic activity/volume) 14 U/L 5-34 Serum or plasma alanine aminotransferase measurement (enzymatic activity/volume) 13 U/L 0-55 Serum or plasma protein measurement (mass/volume) 7.9 g/dL 6.4-8.2 Serum or plasma albumin measurement (mass/volume) 4.4 g/dL 3.2-4.5 Bacterial blood culture - 03/30/17 05:05 Bacterial blood culture NG NRG Sputum Gram stain - 03/30/17 05:12 GRAM STAIN SPUTUM AND MIXED BACTERIAL MAGED NRG Bacterial sputum culture - 03/30/17 05:1 2 FREE TEXT EXTERNAL SENSITIVITY REPORTED AT 1704, 1 18 NRG QUANTITY OF GROWTH Moderate Growth NRG FREE TEXT ENTRY 2 PLUS NORMAL MAGED NRG Bacterial sputum culture [id number] [facility] [place] Bacterial susceptibility panel - 7 05:12 Gentamicin susceptibility test by minimum inhibitory c oncentration <= NRG Trimethoprim/sulfamethoxazole susceptibi lity test by minimum inhibitoryconcentration S NRG Tobramycin susceptibility test by minimum inhibitory c oncentration S NRG Cefazolin susceptibility test by minimum inhibitory co ncentration >= NRG Ceftriaxone susceptibility test by minimum inhibitory concentration <= NRG Ciprofloxacin susceptibility test by minimum inhibitor y concentration <= NRG Meropenem susceptibility test by minimum inhibitory co ncentration <= NRG Aztreonam susceptibility test by minimum inhibitory co ncentration <= NRG Bacterial blood culture - 03/30/17 06:34 Bacterial blood culture NG NRG Methicillin resistant Staphylococcus aur eus (MRSA) screening culture - 03/30/17 08:20 Methicillin resistant Staphylococcus aureus (MRSA) scr eening culture NEG NRG Complete blood count (CBC) with automate d white blood cell (WBC) differential - 03/31/17 05:12 Blood leukocytes automated count (number/volume) 4.8 10*3/uL 4.3-11.0 Blood erythrocytes automated count (number/volume) 3.14 10*6/uL 4.35-5.85 Venous blood hemoglobin measurement (mass/volume) 9.6 g/dL 13.3-17.7 Blood hematocrit (volume fraction) 30 % 40-54 Automated erythrocyte mean corpuscular volume 96 [ foz_us] 80-99 Automated erythrocyte mean corpuscular h emoglobin (mass per erythrocyte) 31 pg 25-34 Automated erythrocyte mean corpuscular h emoglobin concentration measurement (mass/volume) 32 g/dL 32-36 Automated erythrocyte distribution width ratio 16. 8 % 10.0- 14.5 Automated blood platelet count (count/volume) 171 10*3/uL 130-400 Automated blood platelet mean volume measurement 9.9 [foz_us] 7.4-10.4 Automated blood neutrophils/100 leukocytes 83 % 42-75 Automated blood lymphocytes/100 leukocytes 9 % 12-44 Blood monocytes/100 leukocytes 8 % 0-12 Automated blood eosinophils/100 leukocytes 0 % 0-10 Automated blood basophils/100 leukocytes 0 % 0-10 Blood neutrophils automated count (number/volume) 4.0 10*3 1.8-7.8 Blood lymphocytes automated count (number/volume) 0.4 10*3 1.0-4.0 Blood monocytes automated count (number/volume) 0. 4 10*3 0.0-1.0 Automated eosinophil count 0.0 10*3/uL 0 .0-0.3 Automated blood basophil count (count/volume) 0.0 10*3/uL 0.0-0.1 Comprehensive metabolic panel - 03/31/17 05:12 Serum or plasma sodium measurement (moles/volume) 139 mmol/L 135-145 Serum or plasma potassium measurement (moles/volume) 4.6 mmol/L 3.6-5.0 Serum or plasma chloride measurement (moles/volume) 101 mmol/L 98-107 Carbon dioxide 31 mmol/L 21-32 Serum or plasma anion gap determination (moles/volume) 7 mmol/L 5-14 Serum or plasma urea nitrogen measurement (mass/volume ) 13 mg/dL 7-18 Serum or plasma creatinine measurement (mass/volume) 0.59 mg/dL 0.60-1.30 Serum or plasma urea nitrogen/creatinine mass ratio 22 NRG Serum or plasma creatinine measurement w ith calculation of estimated glomerular filtration rate > NRG Serum or plasma glucose measurement (mass/volume) 110 mg/dL 70-105 Serum or plasma calcium measurement (mass/volume) 8.5 mg/dL 8.5-10.1 Serum or plasma total bilirubin measurement (mass/volu me) 0.2 mg/dL 0.1-1.0 Serum or plasma alkaline phosphatase mick surement (enzymatic activity/volume) 113 U/L 40-136 Serum or plasma aspartate aminotransfera se measurement (enzymatic activity/volume) 8 U/L 5-34 Serum or plasma alanine aminotransferase measurement (enzymatic activity/volume) 9 U/L 0-55 Serum or plasma protein measurement (mass/volume) 6.0 g/dL 6.4-8.2 Serum or plasma albumin measurement (mass/volume) 3.5 g/dL 3.2-4.5 Automated blood complete blood count (he mogram) panel - 04/01/17 07:18 Blood leukocytes automated count (number/volume) 5.4 10*3/uL 4.3-11.0 Blood erythrocytes automated count (number/volume) 3.22 10*6/uL 4.35-5.85 Venous blood hemoglobin measurement (mass/volume) 9.8 g/dL 13.3-17.7 Blood hematocrit (volume fraction) 31 % 40-54 Automated erythrocyte mean corpuscular volume 95 [ foz_us] 80-99 Automated erythrocyte mean corpuscular h emoglobin (mass per erythrocyte) 30 pg 25-34 Automated erythrocyte mean corpuscular h emoglobin concentration measurement (mass/volume) 32 g/dL 32-36 Automated erythrocyte distribution width ratio 16. 9 % 10.0- 14.5 Automated blood platelet count (count/volume) 183 10*3/uL 130-400 Automated blood platelet mean volume measurement 9.6 [foz_us] 7.4-10.4 Whole blood basic metabolic panel - 05/18 07:18 Serum or plasma sodium measurement (moles/volume) 140 mmol/L 135-145 Serum or plasma potassium measurement (moles/volume) 4.1 mmol/L 3.6-5.0 Serum or plasma chloride measurement (moles/volume) 100 mmol/L 98-107 Carbon dioxide 33 mmol/L 21-32 Serum or plasma anion gap determination (moles/volume) 7 mmol/L 5-14 Serum or plasma urea nitrogen measurement (mass/volume ) 9 mg/dL 7-18 Serum or plasma creatinine measurement (mass/volume) 0.64 mg/dL 0.60-1.30 Serum or plasma urea nitrogen/creatinine mass ratio 14 NRG Serum or plasma creatinine measurement w ith calculation of estimated glomerular filtration rate > NRG Serum or plasma glucose measurement (mass/volume) 107 mg/dL 70-105 Serum or plasma calcium measurement (mass/volume) 8.7 mg/dL 8.5-10.1 Automated blood complete blood count (he mogram) panel - 04/02/17 05:20 Blood leukocytes automated count (number/volume) 5.5 10*3/uL 4.3-11.0 Blood erythrocytes automated count (number/volume) 3.32 10*6/uL 4.35-5.85 Venous blood hemoglobin measurement (mass/volume) 10.1 g/dL 13.3-17.7 Blood hematocrit (volume fraction) 31 % 40-54 Automated erythrocyte mean corpuscular volume 94 [ foz_us] 80-99 Automated erythrocyte mean corpuscular h emoglobin (mass per erythrocyte) 30 pg 25-34 Automated erythrocyte mean corpuscular h emoglobin concentration measurement (mass/volume) 32 g/dL 32-36 Automated erythrocyte distribution width ratio 16. 6 % 10.0- 14.5 Automated blood platelet count (count/volume) 170 10*3/uL 130-400 Automated blood platelet mean volume measurement 9.5 [foz_us] 7.4-10.4 Whole blood basic metabolic panel - 06/15 05:20 Serum or plasma sodium measurement (moles/volume) 140 mmol/L 135-145 Serum or plasma potassium measurement (moles/volume) 4.1 mmol/L 3.6-5.0 Serum or plasma chloride measurement (moles/volume) 100 mmol/L 98-107 Carbon dioxide 31 mmol/L 21-32 Serum or plasma anion gap determination (moles/volume) 9 mmol/L 5-14 Serum or plasma urea nitrogen measurement (mass/volume ) 11 mg/dL 7-18 Serum or plasma creatinine measurement (mass/volume) 0.62 mg/dL 0.60-1.30 Serum or plasma urea nitrogen/creatinine mass ratio 18 NRG Serum or plasma creatinine measurement w ith calculation of estimated glomerular filtration rate > NRG Serum or plasma glucose measurement (mass/volume) 105 mg/dL 70-105 Serum or plasma calcium measurement (mass/volume) 8.7 mg/dL 8.5-10.1 PT panel in platelet poor plasma by coag ulation assay - 04/06/17 08:20 Prothrombin time (PT) in platelet poor plasma by coagu lation assay 13.3 s 12.2-14.7 INR in platelet poor plasma or blood by coagulation as say 1.0 0.8-1.4 Activated partial thromboplastin time (a PTT) in platelet poor plasma bycoagulation assay - 04/06/17 08:20 Activated partial thromboplastin time (a PTT) in platelet poor plasma bycoagulation assay 32 s 24-35 Comprehensive metabolic panel - 04/06/17 08:20 Serum or plasma sodium measurement (moles/volume) 141 mmol/L 135-145 Serum or plasma potassium measurement (moles/volume) 4.5 mmol/L 3.6-5.0 Serum or plasma chloride measurement (moles/volume) 102 mmol/L 98-107 Carbon dioxide 29 mmol/L 21-32 Serum or plasma anion gap determination (moles/volume) 10 mmol/L 5-14 Serum or plasma urea nitrogen measurement (mass/volume ) 12 mg/dL 7-18 Serum or plasma creatinine measurement (mass/volume) 0.63 mg/dL 0.60-1.30 Serum or plasma urea nitrogen/creatinine mass ratio 19 NRG Serum or plasma creatinine measurement w ith calculation of estimated glomerular filtration rate > NRG Serum or plasma glucose measurement (mass/volume) 105 mg/dL 70-105 Serum or plasma calcium measurement (mass/volume) 8.5 mg/dL 8.5-10.1 Serum or plasma total bilirubin measurement (mass/volu me) 0.3 mg/dL 0.1-1.0 Serum or plasma alkaline phosphatase mick surement (enzymatic activity/volume) 110 U/L 40-136 Serum or plasma aspartate aminotransfera se measurement (enzymatic activity/volume) 13 U/L 5-34 Serum or plasma alanine aminotransferase measurement (enzymatic activity/volume) 11 U/L 0-55 Serum or plasma protein measurement (mass/volume) 6.9 g/dL 6.4-8.2 Serum or plasma albumin measurement (mass/volume) 3.9 g/dL 3.2-4.5 Blood lactic acid measurement (moles/vol ume) - 04/06/17 08:20 Blood lactic acid measurement (moles/volume) 0.90 mmol/L 0.50-2.00 Complete blood count (CBC) with automate d white blood cell (WBC) differential - 04/06/17 08:20 Blood leukocytes automated count (number/volume) 6.2 10*3/uL 4.3-11.0 Blood erythrocytes automated count (number/volume) 3.58 10*6/uL 4.35-5.85 Venous blood hemoglobin measurement (mass/volume) 11.0 g/dL 13.3-17.7 Blood hematocrit (volume fraction) 35 % 40-54 Automated erythrocyte mean corpuscular volume 96 [ foz_us] 80-99 Automated erythrocyte mean corpuscular h emoglobin (mass per erythrocyte) 31 pg 25-34 Automated erythrocyte mean corpuscular h emoglobin concentration measurement (mass/volume) 32 g/dL 32-36 Automated erythrocyte distribution width ratio 17. 1 % 10.0- 14.5 Automated blood platelet count (count/volume) 182 10*3/uL 130-400 Automated blood platelet mean volume measurement 10.1 [foz_us] 7.4-10.4 Automated blood neutrophils/100 leukocytes 69 % 42-75 Automated blood lymphocytes/100 leukocytes 19 % 12-44 Blood monocytes/100 leukocytes 12 % 0-12 Automated blood eosinophils/100 leukocytes 0 % 0-10 Automated blood basophils/100 leukocytes 1 % 0-10 Blood neutrophils automated count (number/volume) 4.2 10*3 1.8-7.8 Blood lymphocytes automated count (number/volume) 1.1 10*3 1.0-4.0 Blood monocytes automated count (number/volume) 0. 7 10*3 0.0-1.0 Automated eosinophil count 0.0 10*3/uL 0 .0-0.3 Automated blood basophil count (count/volume) 0.0 10*3/uL 0.0-0.1 Serum or plasma lithium measurement (mol es/volume) - 04/06/17 08:20 BNP level 390.3 pg/mL <100.0 Bacterial blood culture - 04/06/17 08:20 Bacterial blood culture NG [facility] [place] Influenza virus A and B antigen detectio n - 04/06/17 08:40 FLU RESULT NEGATIVE FOR INFLUENZA A AND B ANTIGENS BY IA NRG Bacterial blood culture - 04/06/17 08:46 Bacterial blood culture NG [facility] [place] Complete urinalysis with reflex to cultu re - 04/06/17 11:05 Urine color determination YELLOW NRG Urine clarity determination CLEAR NR G Urine pH measurement by test strip 8 5-9 Specific gravity of urine by test strip 1.015 1.016-1.022 Urine protein assay by test strip, semi-quantitative 1+ NEGATIVE Urine glucose detection by automated test strip NE GATIVE NEGATIVE Erythrocytes detection in urine sediment by light micr oscopy NEGATIVE NEGATIVE Urine ketones detection by automated test strip NE GATIVE NEGATIVE Urine nitrite detection by test strip NEGATIVE NEGATIVE Urine total bilirubin detection by test strip NEGA TIVE NEGATIVE Urine urobilinogen measurement by automated test strip (mass/volume) NORMAL NORMAL Urine leukocyte esterase detection by dipstick NEG ATIVE NEGATIVE Automated urine sediment erythrocyte cou nt by microscopy (number/high power field) 0 [HPF] NRG Automated urine sediment leukocyte count by microscopy (number/high power field) RARE NRG Bacteria detection in urine sediment by light microsco py FEW NRG Crystals detection in urine sediment by light microsco py NONE NRG Casts detection in urine sediment by light microscopy NONE NRG Mucus detection in urine sediment by light microscopy NEGATIVE NRG Complete urinalysis with reflex to culture NO NRG Urine Trichomonas species detection by light microscop y FEW NRG Complete blood count (CBC) with automate d white blood cell (WBC) differential - 04/07/17 05:25 Blood leukocytes automated count (number/volume) 6.2 10*3/uL 4.3-11.0 Blood erythrocytes automated count (number/volume) 3.33 10*6/uL 4.35-5.85 Venous blood hemoglobin measurement (mass/volume) 10.0 g/dL 13.3-17.7 Blood hematocrit (volume fraction) 34 % 40-54 Automated erythrocyte mean corpuscular volume 100 [foz_us] 80-99 Automated erythrocyte mean corpuscular h emoglobin (mass per erythrocyte) 30 pg 25-34 Automated erythrocyte mean corpuscular h emoglobin concentration measurement (mass/volume) 30 g/dL 32-36 Automated erythrocyte distribution width ratio 15. 7 % 10.0- 14.5 Automated blood platelet count (count/volume) 165 10*3/uL 130-400 Automated blood platelet mean volume measurement 8.7 [foz_us] 7.4-10.4 Automated blood neutrophils/100 leukocytes 86 % 42-75 Automated blood lymphocytes/100 leukocytes 7 % 12-44 Blood monocytes/100 leukocytes 7 % 0-12 Automated blood eosinophils/100 leukocytes 0 % 0-10 Automated blood basophils/100 leukocytes 0 % 0-10 Blood neutrophils automated count (number/volume) 5.4 10*3 1.8-7.8 Blood lymphocytes automated count (number/volume) 0.4 10*3 1.0-4.0 Blood monocytes automated count (number/volume) 0. 4 10*3 0.0-1.0 Automated eosinophil count 0.0 10*3/uL 0 .0-0.3 Automated blood basophil count (count/volume) 0.0 10*3/uL 0.0-0.1 Blood manual differential performed dete ction - 04/07/17 05:25 Blood monocytes/100 leukocytes 4 % NRG Manual blood segmented neutrophils/100 leukocytes 85 % NRG Blood band neutrophils/100 leukocytes 0 % NRG Manual blood lymphocytes/100 leukocytes 8 % NRG Manual eosinophils/100 leukocytes in nose 0 % NRG Manual blood basophils/100 leukocytes 0 % NRG Blood lymphocytes variant/100 leukocytes 3 % NRG Blood poikilocytosis detection by light microscopy SLIGHT NRG Blood hypochromia detection by light microscopy SL IGHT NRG Blood rouleaux detection by light microscopy SLIGH T NRG Blood target cells detection by light microscopy S LIGHT NRG Comprehensive metabolic panel - 04/07/17 05:25 Serum or plasma sodium measurement (moles/volume) 140 mmol/L 135-145 Serum or plasma potassium measurement (moles/volume) 3.9 mmol/L 3.6-5.0 Serum or plasma chloride measurement (moles/volume) 100 mmol/L 98-107 Carbon dioxide 29 mmol/L 21-32 Serum or plasma anion gap determination (moles/volume) 11 mmol/L 5-14 Serum or plasma urea nitrogen measurement (mass/volume ) 13 mg/dL 7-18 Serum or plasma creatinine measurement (mass/volume) 0.65 mg/dL 0.60-1.30 Serum or plasma urea nitrogen/creatinine mass ratio 20 NRG Serum or plasma creatinine measurement w ith calculation of estimated glomerular filtration rate > NRG Serum or plasma glucose measurement (mass/volume) 149 mg/dL 70-105 Serum or plasma calcium measurement (mass/volume) 8.6 mg/dL 8.5-10.1 Serum or plasma total bilirubin measurement (mass/volu me) 0.2 mg/dL 0.1-1.0 Serum or plasma alkaline phosphatase mick surement (enzymatic activity/volume) 106 U/L 40-136 Serum or plasma aspartate aminotransfera se measurement (enzymatic activity/volume) 9 U/L 5-34 Serum or plasma alanine aminotransferase measurement (enzymatic activity/volume) 10 U/L 0-55 Serum or plasma protein measurement (mass/volume) 6.3 g/dL 6.4-8.2 Serum or plasma albumin measurement (mass/volume) 3.5 g/dL 3.2-4.5 Complete blood count (CBC) with automate d white blood cell (WBC) differential - 04/08/17 06:28 Blood leukocytes automated count (number/volume) 6.6 10*3/uL 4.3-11.0 Blood erythrocytes automated count (number/volume) 3.25 10*6/uL 4.35-5.85 Venous blood hemoglobin measurement (mass/volume) 10.1 g/dL 13.3-17.7 Blood hematocrit (volume fraction) 31 % 40-54 Automated erythrocyte mean corpuscular volume 94 [ foz_us] 80-99 Automated erythrocyte mean corpuscular h emoglobin (mass per erythrocyte) 31 pg 25-34 Automated erythrocyte mean corpuscular h emoglobin concentration measurement (mass/volume) 33 g/dL 32-36 Automated erythrocyte distribution width ratio 16. 8 % 10.0- 14.5 Automated blood platelet count (count/volume) 171 10*3/uL 130-400 Automated blood platelet mean volume measurement 10.2 [foz_us] 7.4-10.4 Automated blood neutrophils/100 leukocytes 85 % 42-75 Automated blood lymphocytes/100 leukocytes 8 % 12-44 Blood monocytes/100 leukocytes 8 % 0-12 Automated blood eosinophils/100 leukocytes 0 % 0-10 Automated blood basophils/100 leukocytes 0 % 0-10 Blood neutrophils automated count (number/volume) 5.6 10*3 1.8-7.8 Blood lymphocytes automated count (number/volume) 0.5 10*3 1.0-4.0 Blood monocytes automated count (number/volume) 0. 5 10*3 0.0-1.0 Automated eosinophil count 0.0 10*3/uL 0 .0-0.3 Automated blood basophil count (count/volume) 0.0 10*3/uL 0.0-0.1 Whole blood basic metabolic panel - 12/16 06:28 Serum or plasma sodium measurement (moles/volume) 139 mmol/L 135-145 Serum or plasma potassium measurement (moles/volume) 4.1 mmol/L 3.6-5.0 Serum or plasma chloride measurement (moles/volume) 99 mmol/L 98-107 Carbon dioxide 30 mmol/L 21-32 Serum or plasma anion gap determination (moles/volume) 10 mmol/L 5-14 Serum or plasma urea nitrogen measurement (mass/volume ) 9 mg/dL 7-18 Serum or plasma creatinine measurement (mass/volume) 0.64 mg/dL 0.60-1.30 Serum or plasma urea nitrogen/creatinine mass ratio 14 NRG Serum or plasma creatinine measurement w ith calculation of estimated glomerular filtration rate > NRG Serum or plasma glucose measurement (mass/volume) 162 mg/dL 70-105 Serum or plasma calcium measurement (mass/volume) 8.6 mg/dL 8.5-10.1 Serum or plasma carbamazepine measuremen t (mass/volume) - 04/08/17 06:28 Serum or plasma carbamazepine measurement (mass/volume ) 4.9 ug/mL 4.0-12.0 Complete blood count (CBC) with automate d white blood cell (WBC) differential - 04/30/17 15:27 Blood leukocytes automated count (number/volume) 10.5 10*3/uL 4.3-11.0 Blood erythrocytes automated count (number/volume) 4.05 10*6/uL 4.35-5.85 Venous blood hemoglobin measurement (mass/volume) 12.3 g/dL 13.3-17.7 Blood hematocrit (volume fraction) 38 % 40-54 Automated erythrocyte mean corpuscular volume 93 [ foz_us] 80-99 Automated erythrocyte mean corpuscular h emoglobin (mass per erythrocyte) 30 pg 25-34 Automated erythrocyte mean corpuscular h emoglobin concentration measurement (mass/volume) 33 g/dL 32-36 Automated erythrocyte distribution width ratio 14. 8 % 10.0- 14.5 Automated blood platelet count (count/volume) 320 10*3/uL 130-400 Automated blood platelet mean volume measurement 9.6 [foz_us] 7.4-10.4 Automated blood neutrophils/100 leukocytes 77 % 42-75 Automated blood lymphocytes/100 leukocytes 11 % 12-44 Blood monocytes/100 leukocytes 11 % 0-12 Automated blood eosinophils/100 leukocytes 0 % 0-10 Automated blood basophils/100 leukocytes 0 % 0-10 Blood neutrophils automated count (number/volume) 8.1 10*3 1.8-7.8 Blood lymphocytes automated count (number/volume) 1.1 10*3 1.0-4.0 Blood monocytes automated count (number/volume) 1. 2 10*3 0.0-1.0 Automated eosinophil count 0.0 10*3/uL 0 .0-0.3 Automated blood basophil count (count/volume) 0.0 10*3/uL 0.0-0.1 Comprehensive metabolic panel - 04/30/17 15:27 Serum or plasma sodium measurement (moles/volume) 133 mmol/L 135-145 Serum or plasma potassium measurement (moles/volume) 5.0 mmol/L 3.6-5.0 Serum or plasma chloride measurement (moles/volume) 92 mmol/L 98-107 Carbon dioxide 31 mmol/L 21-32 Serum or plasma anion gap determination (moles/volume) 10 mmol/L 5-14 Serum or plasma urea nitrogen measurement (mass/volume ) 14 mg/dL 7-18 Serum or plasma creatinine measurement (mass/volume) 0.71 mg/dL 0.60-1.30 Serum or plasma urea nitrogen/creatinine mass ratio 20 NRG Serum or plasma creatinine measurement w ith calculation of estimated glomerular filtration rate > NRG Serum or plasma glucose measurement (mass/volume) 107 mg/dL 70-105 Serum or plasma calcium measurement (mass/volume) 9.4 mg/dL 8.5-10.1 Serum or plasma total bilirubin measurement (mass/volu me) 0.3 mg/dL 0.1-1.0 Serum or plasma alkaline phosphatase mick surement (enzymatic activity/volume) 137 U/L 40-136 Serum or plasma aspartate aminotransfera se measurement (enzymatic activity/volume) 14 U/L 5-34 Serum or plasma alanine aminotransferase measurement (enzymatic activity/volume) 9 U/L 0-55 Serum or plasma protein measurement (mass/volume) 8.0 g/dL 6.4-8.2 Serum or plasma albumin measurement (mass/volume) 4.3 g/dL 3.2-4.5 Complete blood count (CBC) with automate d white blood cell (WBC) differential - 05/20/17 14:55 Blood leukocytes automated count (number/volume) 8.8 10*3/uL 4.3-11.0 Blood erythrocytes automated count (number/volume) 3.77 10*6/uL 4.35-5.85 Venous blood hemoglobin measurement (mass/volume) 11.5 g/dL 13.3-17.7 Blood hematocrit (volume fraction) 35 % 40-54 Automated erythrocyte mean corpuscular volume 92 [ foz_us] 80-99 Automated erythrocyte mean corpuscular h emoglobin (mass per erythrocyte) 31 pg 25-34 Automated erythrocyte mean corpuscular h emoglobin concentration measurement (mass/volume) 33 g/dL 32-36 Automated erythrocyte distribution width ratio 15. 2 % 10.0- 14.5 Automated blood platelet count (count/volume) 357 10*3/uL 130-400 Automated blood platelet mean volume measurement 8.7 [foz_us] 7.4-10.4 Automated blood neutrophils/100 leukocytes 82 % 42-75 Automated blood lymphocytes/100 leukocytes 9 % 12-44 Blood monocytes/100 leukocytes 9 % 0-12 Automated blood eosinophils/100 leukocytes 0 % 0-10 Automated blood basophils/100 leukocytes 0 % 0-10 Blood neutrophils automated count (number/volume) 7.2 10*3 1.8-7.8 Blood lymphocytes automated count (number/volume) 0.8 10*3 1.0-4.0 Blood monocytes automated count (number/volume) 0. 8 10*3 0.0-1.0 Automated eosinophil count 0.0 10*3/uL 0 .0-0.3 Automated blood basophil count (count/volume) 0.0 10*3/uL 0.0-0.1 Comprehensive metabolic panel - 05/20/17 14:55 Serum or plasma sodium measurement (moles/volume) 133 mmol/L 135-145 Serum or plasma potassium measurement (moles/volume) 4.1 mmol/L 3.6-5.0 Serum or plasma chloride measurement (moles/volume) 94 mmol/L 98-107 Carbon dioxide 29 mmol/L 21-32 Serum or plasma anion gap determination (moles/volume) 10 mmol/L 5-14 Serum or plasma urea nitrogen measurement (mass/volume ) 6 mg/dL 7-18 Serum or plasma creatinine measurement (mass/volume) 0.81 mg/dL 0.60-1.30 Serum or plasma urea nitrogen/creatinine mass ratio 7 NRG Serum or plasma creatinine measurement w ith calculation of estimated glomerular filtration rate > NRG Serum or plasma glucose measurement (mass/volume) 109 mg/dL 70-105 Serum or plasma calcium measurement (mass/volume) 8.7 mg/dL 8.5-10.1 Serum or plasma total bilirubin measurement (mass/volu me) 0.3 mg/dL 0.1-1.0 Serum or plasma alkaline phosphatase mick surement (enzymatic activity/volume) 99 U/L 40-136 Serum or plasma aspartate aminotransfera se measurement (enzymatic activity/volume) 18 U/L 5-34 Serum or plasma alanine aminotransferase measurement (enzymatic activity/volume) 11 U/L 0-55 Serum or plasma protein measurement (mass/volume) 7.4 g/dL 6.4-8.2 Serum or plasma albumin measurement (mass/volume) 3.6 g/dL 3.2-4.5 Serum or plasma lithium measurement (mol es/volume) - 05/20/17 14:55 BNP level 71.1 pg/mL <100.0 PT panel in platelet poor plasma by coag ulation assay - 05/20/17 14:55 Prothrombin time (PT) in platelet poor plasma by coagu lation assay 13.5 s 12.2-14.7 INR in platelet poor plasma or blood by coagulation as say 1.0 0.8-1.4 Activated partial thromboplastin time (a PTT) in platelet poor plasma bycoagulation assay - 05/20/17 14:55 Activated partial thromboplastin time (a PTT) in platelet poor plasma bycoagulation assay 35 s 24-35 Bacterial blood culture - 05/20/17 16:15 Bacterial blood culture NG NRG Blood lactic acid measurement (moles/vol ume) - 05/20/17 16:35 Blood lactic acid measurement (moles/volume) 1.37 mmol/L 0.50-2.00 Bacterial blood culture - 05/20/17 16:35 Bacterial blood culture NG NRG Complete blood count (CBC) with automate d white blood cell (WBC) differential - 05/21/17 05:25 Blood leukocytes automated count (number/volume) 6.8 10*3/uL 4.3-11.0 Blood erythrocytes automated count (number/volume) 2.99 10*6/uL 4.35-5.85 Venous blood hemoglobin measurement (mass/volume) 9.0 g/dL 13.3-17.7 Blood hematocrit (volume fraction) 27 % 40-54 Automated erythrocyte mean corpuscular volume 92 [ foz_us] 80-99 Automated erythrocyte mean corpuscular h emoglobin (mass per erythrocyte) 30 pg 25-34 Automated erythrocyte mean corpuscular h emoglobin concentration measurement (mass/volume) 33 g/dL 32-36 Automated erythrocyte distribution width ratio 15. 3 % 10.0- 14.5 Automated blood platelet count (count/volume) 309 10*3/uL 130-400 Automated blood platelet mean volume measurement 8.6 [foz_us] 7.4-10.4 Automated blood neutrophils/100 leukocytes 78 % 42-75 Automated blood lymphocytes/100 leukocytes 11 % 12-44 Blood monocytes/100 leukocytes 11 % 0-12 Automated blood eosinophils/100 leukocytes 0 % 0-10 Automated blood basophils/100 leukocytes 0 % 0-10 Blood neutrophils automated count (number/volume) 5.3 10*3 1.8-7.8 Blood lymphocytes automated count (number/volume) 0.7 10*3 1.0-4.0 Blood monocytes automated count (number/volume) 0. 8 10*3 0.0-1.0 Automated eosinophil count 0.0 10*3/uL 0 .0-0.3 Automated blood basophil count (count/volume) 0.0 10*3/uL 0.0-0.1 Comprehensive metabolic panel - 05/21/17 05:25 Serum or plasma sodium measurement (moles/volume) 133 mmol/L 135-145 Serum or plasma potassium measurement (moles/volume) 4.1 mmol/L 3.6-5.0 Serum or plasma chloride measurement (moles/volume) 98 mmol/L 98-107 Carbon dioxide 26 mmol/L 21-32 Serum or plasma anion gap determination (moles/volume) 9 mmol/L 5-14 Serum or plasma urea nitrogen measurement (mass/volume ) 6 mg/dL 7-18 Serum or plasma creatinine measurement (mass/volume) 0.57 mg/dL 0.60-1.30 Serum or plasma urea nitrogen/creatinine mass ratio 11 NRG Serum or plasma creatinine measurement w ith calculation of estimated glomerular filtration rate > NRG Serum or plasma glucose measurement (mass/volume) 102 mg/dL 70-105 Serum or plasma calcium measurement (mass/volume) 7.6 mg/dL 8.5-10.1 Serum or plasma total bilirubin measurement (mass/volu me) 0.3 mg/dL 0.1-1.0 Serum or plasma alkaline phosphatase mick surement (enzymatic activity/volume) 86 U/L 40-136 Serum or plasma aspartate aminotransfera se measurement (enzymatic activity/volume) 14 U/L 5-34 Serum or plasma alanine aminotransferase measurement (enzymatic activity/volume) 8 U/L 0-55 Serum or plasma protein measurement (mass/volume) 5.7 g/dL 6.4-8.2 Serum or plasma albumin measurement (mass/volume) 2.8 g/dL 3.2-4.5 Serum or plasma phosphate measurement (m ass/volume) - 05/21/17 05:25 Serum or plasma phosphate measurement (mass/volume) 2.1 mg/dL 2.3-4.7 Magnesium - 05/21/17 05:25 Magnesium 2.1 mg/dL 1.8-2.4 Serum or plasma carbamazepine measuremen t (mass/volume) - 05/21/17 05:25 Serum or plasma carbamazepine measurement (mass/volume ) 8.0 ug/mL 4.0-12.0 DILANTIN (PHENYTOIN) - 05/21/17 05:25 DILANTIN PHEN 2.5 % 10.0-20.0 Sputum Gram stain - 05/21/17 08:00 GRAM STAIN SPUTUM NO WBC'S OBSERVED NRG Bacteria identification in bronchial spe cimen by aerobe culture - 05/21/17 08:00 Bacteria identification in bronchial specimen by aerob e culture NG NRG Sputum Gram stain - 05/21/17 08:00 GRAM STAIN SPUTUM OBSERVED NRG Bacteria identification in bronchial spe cimen by aerobe culture - 05/21/17 08:00 QUANTITY OF GROWTH Scant Growth NRG MRSA AGAR Screening test for MRSA is N EGATIVE (Final to follow) NRG Bacteria identification in bronchial specimen by aerob e culture [id number] NRG FTX;REPORTABLE SENSITIVITY REPORTED AT 1642, 2- 18 NRG Mycobacterium species detection by organ ism specific culture - 05/21/17 08:00 Mycobacterium species detection by organism specific c ulture 4 weeks required for a preliminary negative culture report. NRG Bacterial susceptibility panel - 8 08:00 Oxacillin susceptibility test by minimum inhibitory co ncentration <= NRG Gentamicin susceptibility test by minimum inhibitory c oncentration <= NRG Clindamycin susceptibility test by minimum inhibitory concentration R NRG Erythromycin susceptibility test by minimum inhibitory concentration >= NRG Trimethoprim/sulfamethoxazole susceptibi lity test by minimum inhibitoryconcentration S NRG Vancomycin susceptibility test by minimum inhibitory c oncentration <= NRG Levofloxacin susceptibility test by minimum inhibitory concentration <= NRG Rifampin susceptibility test by minimum inhibitory con centration <= NRG Tetracycline susceptibility test by minimum inhibitory concentration <= NRG Fungus culture - 05/21/17 08:00 Fungus culture NG NRG Fungus culture - 05/21/17 08:00 FUNGUS REPORT NO FUNGUS GROWTH OBSERVED NRG Complete blood count (CBC) with automate d white blood cell (WBC) differential - 05/22/17 05:50 Blood leukocytes automated count (number/volume) 4.0 10*3/uL 4.3-11.0 Blood erythrocytes automated count (number/volume) 2.98 10*6/uL 4.35-5.85 Venous blood hemoglobin measurement (mass/volume) 8.9 g/dL 13.3-17.7 Blood hematocrit (volume fraction) 28 % 40-54 Automated erythrocyte mean corpuscular volume 93 [ foz_us] 80-99 Automated erythrocyte mean corpuscular h emoglobin (mass per erythrocyte) 30 pg 25-34 Automated erythrocyte mean corpuscular h emoglobin concentration measurement (mass/volume) 32 g/dL 32-36 Automated erythrocyte distribution width ratio 15. 0 % 10.0- 14.5 Automated blood platelet count (count/volume) 320 10*3/uL 130-400 Automated blood platelet mean volume measurement 8.8 [foz_us] 7.4-10.4 Automated blood neutrophils/100 leukocytes 70 % 42-75 Automated blood lymphocytes/100 leukocytes 17 % 12-44 Blood monocytes/100 leukocytes 13 % 0-12 Automated blood eosinophils/100 leukocytes 0 % 0-10 Automated blood basophils/100 leukocytes 0 % 0-10 Blood neutrophils automated count (number/volume) 2.8 10*3 1.8-7.8 Blood lymphocytes automated count (number/volume) 0.7 10*3 1.0-4.0 Blood monocytes automated count (number/volume) 0. 5 10*3 0.0-1.0 Automated eosinophil count 0.0 10*3/uL 0 .0-0.3 Automated blood basophil count (count/volume) 0.0 10*3/uL 0.0-0.1 Comprehensive metabolic panel - 05/22/17 05:50 Serum or plasma sodium measurement (moles/volume) 136 mmol/L 135-145 Serum or plasma potassium measurement (moles/volume) 4.7 mmol/L 3.6-5.0 Serum or plasma chloride measurement (moles/volume) 100 mmol/L 98-107 Carbon dioxide 27 mmol/L 21-32 Serum or plasma anion gap determination (moles/volume) 9 mmol/L 5-14 Serum or plasma urea nitrogen measurement (mass/volume ) 6 mg/dL 7-18 Serum or plasma creatinine measurement (mass/volume) 0.59 mg/dL 0.60-1.30 Serum or plasma urea nitrogen/creatinine mass ratio 10 NRG Serum or plasma creatinine measurement w ith calculation of estimated glomerular filtration rate > NRG Serum or plasma glucose measurement (mass/volume) 112 mg/dL 70-105 Serum or plasma calcium measurement (mass/volume) 8.1 mg/dL 8.5-10.1 Serum or plasma total bilirubin measurement (mass/volu me) 0.2 mg/dL 0.1-1.0 Serum or plasma alkaline phosphatase mick surement (enzymatic activity/volume) 83 U/L 40-136 Serum or plasma aspartate aminotransfera se measurement (enzymatic activity/volume) 18 U/L 5-34 Serum or plasma alanine aminotransferase measurement (enzymatic activity/volume) 8 U/L 0-55 Serum or plasma protein measurement (mass/volume) 5.8 g/dL 6.4-8.2 Serum or plasma albumin measurement (mass/volume) 2.8 g/dL 3.2-4.5 Complete urinalysis with reflex to cultu re - 05/22/17 17:00 Urine color determination YELLOW NRG Urine clarity determination CLEAR NR G Urine pH measurement by test strip 7 5-9 Specific gravity of urine by test strip 1.005 1.016-1.022 Urine protein assay by test strip, semi-quantitative NEGATIVE NEGATIVE Urine glucose detection by automated test strip NE GATIVE NEGATIVE Erythrocytes detection in urine sediment by light micr oscopy NEGATIVE NEGATIVE Urine ketones detection by automated test strip NE GATIVE NEGATIVE Urine nitrite detection by test strip NEGATIVE NEGATIVE Urine total bilirubin detection by test strip NEGA TIVE NEGATIVE Urine urobilinogen measurement by automated test strip (mass/volume) NORMAL NORMAL Urine leukocyte esterase detection by dipstick NEG ATIVE NEGATIVE Automated urine sediment erythrocyte cou nt by microscopy (number/high power field) NONE NRG Automated urine sediment leukocyte count by microscopy (number/high power field) NONE NRG Bacteria detection in urine sediment by light microsco py NEGATIVE NRG Squamous epithelial cells detection in u rine sediment by light microscopy 0-2 NRG Crystals detection in urine sediment by light microsco py NONE NRG Casts detection in urine sediment by light microscopy NONE NRG Mucus detection in urine sediment by light microscopy NEGATIVE NRG Complete urinalysis with reflex to culture NO NRG Complete blood count (CBC) with automate d white blood cell (WBC) differential - 05/23/17 05:35 Blood leukocytes automated count (number/volume) 5.0 10*3/uL 4.3-11.0 Blood erythrocytes automated count (number/volume) 3.01 10*6/uL 4.35-5.85 Venous blood hemoglobin measurement (mass/volume) 9.1 g/dL 13.3-17.7 Blood hematocrit (volume fraction) 28 % 40-54 Automated erythrocyte mean corpuscular volume 94 [ foz_us] 80-99 Automated erythrocyte mean corpuscular h emoglobin (mass per erythrocyte) 30 pg 25-34 Automated erythrocyte mean corpuscular h emoglobin concentration measurement (mass/volume) 32 g/dL 32-36 Automated erythrocyte distribution width ratio 15. 4 % 10.0- 14.5 Automated blood platelet count (count/volume) 377 10*3/uL 130-400 Automated blood platelet mean volume measurement 8.9 [foz_us] 7.4-10.4 Automated blood neutrophils/100 leukocytes 77 % 42-75 Automated blood lymphocytes/100 leukocytes 14 % 12-44 Blood monocytes/100 leukocytes 10 % 0-12 Automated blood eosinophils/100 leukocytes 0 % 0-10 Automated blood basophils/100 leukocytes 0 % 0-10 Blood neutrophils automated count (number/volume) 3.8 10*3 1.8-7.8 Blood lymphocytes automated count (number/volume) 0.7 10*3 1.0-4.0 Blood monocytes automated count (number/volume) 0. 5 10*3 0.0-1.0 Automated eosinophil count 0.0 10*3/uL 0 .0-0.3 Automated blood basophil count (count/volume) 0.0 10*3/uL 0.0-0.1 Whole blood basic metabolic panel - 05/02 06/15 05:35 Serum or plasma sodium measurement (moles/volume) 138 mmol/L 135-145 Serum or plasma potassium measurement (moles/volume) 4.4 mmol/L 3.6-5.0 Serum or plasma chloride measurement (moles/volume) 103 mmol/L 98-107 Carbon dioxide 28 mmol/L 21-32 Serum or plasma anion gap determination (moles/volume) 7 mmol/L 5-14 Serum or plasma urea nitrogen measurement (mass/volume ) 6 mg/dL 7-18 Serum or plasma creatinine measurement (mass/volume) 0.61 mg/dL 0.60-1.30 Serum or plasma urea nitrogen/creatinine mass ratio 10 NRG Serum or plasma creatinine measurement w ith calculation of estimated glomerular filtration rate > NRG Serum or plasma glucose measurement (mass/volume) 150 mg/dL 70-105 Serum or plasma calcium measurement (mass/volume) 8.2 mg/dL 8.5-10.1 Serum or plasma lithium measurement (mol es/volume) - 05/23/17 05:35 BNP level 233.9 pg/mL <100.0 Automated blood complete blood count (he mogram) panel - 07/09/17 09:24 Blood leukocytes automated count (number/volume) 4.6 10*3/uL 4.3-11.0 Blood erythrocytes automated count (number/volume) 3.72 10*6/uL 4.35-5.85 Venous blood hemoglobin measurement (mass/volume) 10.9 g/dL 13.3-17.7 Blood hematocrit (volume fraction) 34 % 40-54 Automated erythrocyte mean corpuscular volume 91 [ foz_us] 80-99 Automated erythrocyte mean corpuscular h emoglobin (mass per erythrocyte) 29 pg 25-34 Automated erythrocyte mean corpuscular h emoglobin concentration measurement (mass/volume) 32 g/dL 32-36 Automated erythrocyte distribution width ratio 14. 4 % 10.0- 14.5 Automated blood platelet count (count/volume) 271 10*3/uL 130-400 Automated blood platelet mean volume measurement 8.8 [foz_us] 7.4-10.4 PT panel in platelet poor plasma by coag ulation assay - 07/09/17 09:24 Prothrombin time (PT) in platelet poor plasma by coagu lation assay 13.4 s 12.2-14.7 INR in platelet poor plasma or blood by coagulation as say 1.0 0.8-1.4 Activated partial thromboplastin time (a PTT) in platelet poor plasma bycoagulation assay - 07/09/17 09:24 Activated partial thromboplastin time (a PTT) in platelet poor plasma bycoagulation assay 41 s 24-35 Methicillin resistant Staphylococcus aur eus (MRSA) screening culture - 07/24/17 11:05 Methicillin resistant Staphylococcus aureus (MRSA) scr eening culture NEG NRG Complete blood count (CBC) with automate d white blood cell (WBC) differential - 07/28/17 12:21 Blood leukocytes automated count (number/volume) 7.5 10*3/uL 4.3-11.0 Blood erythrocytes automated count (number/volume) 3.89 10*6/uL 4.35-5.85 Venous blood hemoglobin measurement (mass/volume) 11.1 g/dL 13.3-17.7 Blood hematocrit (volume fraction) 35 % 40-54 Automated erythrocyte mean corpuscular volume 91 [ foz_us] 80-99 Automated erythrocyte mean corpuscular h emoglobin (mass per erythrocyte) 29 pg 25-34 Automated erythrocyte mean corpuscular h emoglobin concentration measurement (mass/volume) 32 g/dL 32-36 Automated erythrocyte distribution width ratio 14. 9 % 10.0- 14.5 Automated blood platelet count (count/volume) 227 10*3/uL 130-400 Automated blood platelet mean volume measurement 8.7 [foz_us] 7.4-10.4 Automated blood neutrophils/100 leukocytes 85 % 42-75 Automated blood lymphocytes/100 leukocytes 9 % 12-44 Blood monocytes/100 leukocytes 6 % 0-12 Automated blood eosinophils/100 leukocytes 0 % 0-10 Automated blood basophils/100 leukocytes 0 % 0-10 Blood neutrophils automated count (number/volume) 6.4 10*3 1.8-7.8 Blood lymphocytes automated count (number/volume) 0.7 10*3 1.0-4.0 Blood monocytes automated count (number/volume) 0. 5 10*3 0.0-1.0 Automated eosinophil count 0.0 10*3/uL 0 .0-0.3 Automated blood basophil count (count/volume) 0.0 10*3/uL 0.0-0.1 Complete blood count (CBC) with automate d white blood cell (WBC) differential - 07/29/17 12:28 Blood leukocytes automated count (number/volume) 10.0 10*3/uL 4.3-11.0 Blood erythrocytes automated count (number/volume) 3.67 10*6/uL 4.35-5.85 Venous blood hemoglobin measurement (mass/volume) 10.8 g/dL 13.3-17.7 Blood hematocrit (volume fraction) 34 % 40-54 Automated erythrocyte mean corpuscular volume 91 [ foz_us] 80-99 Automated erythrocyte mean corpuscular h emoglobin (mass per erythrocyte) 29 pg 25-34 Automated erythrocyte mean corpuscular h emoglobin concentration measurement (mass/volume) 32 g/dL 32-36 Automated erythrocyte distribution width ratio 14. 8 % 10.0- 14.5 Automated blood platelet count (count/volume) 205 10*3/uL 130-400 Automated blood platelet mean volume measurement 9.5 [foz_us] 7.4-10.4 Automated blood neutrophils/100 leukocytes 91 % 42-75 Automated blood lymphocytes/100 leukocytes 5 % 12-44 Blood monocytes/100 leukocytes 4 % 0-12 Automated blood eosinophils/100 leukocytes 0 % 0-10 Automated blood basophils/100 leukocytes 0 % 0-10 Blood neutrophils automated count (number/volume) 9.1 10*3 1.8-7.8 Blood lymphocytes automated count (number/volume) 0.5 10*3 1.0-4.0 Blood monocytes automated count (number/volume) 0. 4 10*3 0.0-1.0 Automated eosinophil count 0.0 10*3/uL 0 .0-0.3 Automated blood basophil count (count/volume) 0.0 10*3/uL 0.0-0.1 Comprehensive metabolic panel - 07/29/17 12:28 Serum or plasma sodium measurement (moles/volume) 134 mmol/L 135-145 Serum or plasma potassium measurement (moles/volume) 4.2 mmol/L 3.6-5.0 Serum or plasma chloride measurement (moles/volume) 94 mmol/L 98-107 Carbon dioxide 29 mmol/L 21-32 Serum or plasma anion gap determination (moles/volume) 11 mmol/L 5-14 Serum or plasma urea nitrogen measurement (mass/volume ) 12 mg/dL 7-18 Serum or plasma creatinine measurement (mass/volume) 0.77 mg/dL 0.60-1.30 Serum or plasma urea nitrogen/creatinine mass ratio 16 NRG Serum or plasma creatinine measurement w ith calculation of estimated glomerular filtration rate > NRG Serum or plasma glucose measurement (mass/volume) 213 mg/dL 70-105 Serum or plasma calcium measurement (mass/volume) 8.9 mg/dL 8.5-10.1 Serum or plasma total bilirubin measurement (mass/volu me) 0.3 mg/dL 0.1-1.0 Serum or plasma alkaline phosphatase mick surement (enzymatic activity/volume) 129 U/L 40-136 Serum or plasma aspartate aminotransfera se measurement (enzymatic activity/volume) 13 U/L 5-34 Serum or plasma alanine aminotransferase measurement (enzymatic activity/volume) 6 U/L 0-55 Serum or plasma protein measurement (mass/volume) 7.5 g/dL 6.4-8.2 Serum or plasma albumin measurement (mass/volume) 3.9 g/dL 3.2-4.5 Serum or plasma C reactive protein measu rement (mass/volume) - 07/29/17 12:28 Serum or plasma C reactive protein measurement (mass/v olume) 5.90 mg/dL 0.00-0.50 Blood manual differential performed dete ction - 07/29/17 12:28 Blood monocytes/100 leukocytes 1 % NRG Manual blood segmented neutrophils/100 leukocytes 96 % NRG Blood band neutrophils/100 leukocytes 1 % NRG Manual blood lymphocytes/100 leukocytes 2 % NRG Manual eosinophils/100 leukocytes in nose 0 % NRG Manual blood basophils/100 leukocytes 0 % NRG Blood erythrocyte morphology finding identification NORMAL NRG Serum or plasma lithium measurement (mol es/volume) - 07/29/17 12:28 BNP level 187.7 pg/mL <100.0 Blood lactic acid measurement (moles/vol ume) - 07/29/17 12:28 Blood lactic acid measurement (moles/volume) 3.33 mmol/L 0.50-2.00 Bacterial blood culture - 07/29/17 12:28 Bacterial blood culture NG [facility] [place] Serum or plasma lactate measurement (mol es/volume) - 07/29/17 14:24 Serum or plasma lactate measurement (moles/volume) 1.81 mmol/L 0.50-2.00 Bacterial blood culture - 07/29/17 14:24 Bacterial blood culture NG [facility] [place] Complete blood count (CBC) with automate d white blood cell (WBC) differential - 07/30/17 05:20 Blood leukocytes automated count (number/volume) 4.9 10*3/uL 4.3-11.0 Blood erythrocytes automated count (number/volume) 3.28 10*6/uL 4.35-5.85 Venous blood hemoglobin measurement (mass/volume) 9.6 g/dL 13.3-17.7 Blood hematocrit (volume fraction) 30 % 40-54 Automated erythrocyte mean corpuscular volume 92 [ foz_us] 80-99 Automated erythrocyte mean corpuscular h emoglobin (mass per erythrocyte) 29 pg 25-34 Automated erythrocyte mean corpuscular h emoglobin concentration measurement (mass/volume) 32 g/dL 32-36 Automated erythrocyte distribution width ratio 15. 0 % 10.0- 14.5 Automated blood platelet count (count/volume) 183 10*3/uL 130-400 Automated blood platelet mean volume measurement 9.1 [foz_us] 7.4-10.4 Automated blood neutrophils/100 leukocytes 71 % 42-75 Automated blood lymphocytes/100 leukocytes 14 % 12-44 Blood monocytes/100 leukocytes 15 % 0-12 Automated blood eosinophils/100 leukocytes 0 % 0-10 Automated blood basophils/100 leukocytes 0 % 0-10 Blood neutrophils automated count (number/volume) 3.5 10*3 1.8-7.8 Blood lymphocytes automated count (number/volume) 0.7 10*3 1.0-4.0 Blood monocytes automated count (number/volume) 0. 7 10*3 0.0-1.0 Automated eosinophil count 0.0 10*3/uL 0 .0-0.3 Automated blood basophil count (count/volume) 0.0 10*3/uL 0.0-0.1 Comprehensive metabolic panel - 07/30/17 05:20 Serum or plasma sodium measurement (moles/volume) 139 mmol/L 135-145 Serum or plasma potassium measurement (moles/volume) 4.1 mmol/L 3.6-5.0 Serum or plasma chloride measurement (moles/volume) 101 mmol/L 98-107 Carbon dioxide 32 mmol/L 21-32 Serum or plasma anion gap determination (moles/volume) 6 mmol/L 5-14 Serum or plasma urea nitrogen measurement (mass/volume ) 8 mg/dL 7-18 Serum or plasma creatinine measurement (mass/volume) 0.61 mg/dL 0.60-1.30 Serum or plasma urea nitrogen/creatinine mass ratio 13 NRG Serum or plasma creatinine measurement w ith calculation of estimated glomerular filtration rate > NRG Serum or plasma glucose measurement (mass/volume) 154 mg/dL 70-105 Serum or plasma calcium measurement (mass/volume) 8.4 mg/dL 8.5-10.1 Serum or plasma total bilirubin measurement (mass/volu me) 0.1 mg/dL 0.1-1.0 Serum or plasma alkaline phosphatase mick surement (enzymatic activity/volume) 107 U/L 40-136 Serum or plasma aspartate aminotransfera se measurement (enzymatic activity/volume) 11 U/L 5-34 Serum or plasma alanine aminotransferase measurement (enzymatic activity/volume) < U/L 0-55 Serum or plasma protein measurement (mass/volume) 7.0 g/dL 6.4-8.2 Serum or plasma albumin measurement (mass/volume) 3.6 g/dL 3.2-4.5 Serum or plasma carbamazepine measuremen t (mass/volume) - 07/30/17 05:20 Serum or plasma carbamazepine measurement (mass/volume ) 5.9 ug/mL 4.0-12.0 DILANTIN (PHENYTOIN) - 07/30/17 05:20 DILANTIN PHEN 4.1 % 10.0-20.0 Automated blood complete blood count (he mogram) panel - 07/31/17 05:20 Blood leukocytes automated count (number/volume) 6.1 10*3/uL 4.3-11.0 Blood erythrocytes automated count (number/volume) 3.42 10*6/uL 4.35-5.85 Venous blood hemoglobin measurement (mass/volume) 9.9 g/dL 13.3-17.7 Blood hematocrit (volume fraction) 32 % 40-54 Automated erythrocyte mean corpuscular volume 93 [ foz_us] 80-99 Automated erythrocyte mean corpuscular h emoglobin (mass per erythrocyte) 29 pg 25-34 Automated erythrocyte mean corpuscular h emoglobin concentration measurement (mass/volume) 31 g/dL 32-36 Automated erythrocyte distribution width ratio 15. 0 % 10.0- 14.5 Automated blood platelet count (count/volume) 213 10*3/uL 130-400 Automated blood platelet mean volume measurement 9.4 [foz_us] 7.4-10.4 Comprehensive metabolic panel - 07/31/17 05:20 Serum or plasma sodium measurement (moles/volume) 140 mmol/L 135-145 Serum or plasma potassium measurement (moles/volume) 3.8 mmol/L 3.6-5.0 Serum or plasma chloride measurement (moles/volume) 101 mmol/L 98-107 Carbon dioxide 30 mmol/L 21-32 Serum or plasma anion gap determination (moles/volume) 9 mmol/L 5-14 Serum or plasma urea nitrogen measurement (mass/volume ) 7 mg/dL 7-18 Serum or plasma creatinine measurement (mass/volume) 0.67 mg/dL 0.60-1.30 Serum or plasma urea nitrogen/creatinine mass ratio 10 NRG Serum or plasma creatinine measurement w ith calculation of estimated glomerular filtration rate > NRG Serum or plasma glucose measurement (mass/volume) 100 mg/dL 70-105 Serum or plasma calcium measurement (mass/volume) 8.5 mg/dL 8.5-10.1 Serum or plasma total bilirubin measurement (mass/volu me) 0.2 mg/dL 0.1-1.0 Serum or plasma alkaline phosphatase mick surement (enzymatic activity/volume) 97 U/L 40-136 Serum or plasma aspartate aminotransfera se measurement (enzymatic activity/volume) 14 U/L 5-34 Serum or plasma alanine aminotransferase measurement (enzymatic activity/volume) 9 U/L 0-55 Serum or plasma protein measurement (mass/volume) 6.6 g/dL 6.4-8.2 Serum or plasma albumin measurement (mass/volume) 3.5 g/dL 3.2-4.5 Whole blood basic metabolic panel - 07/16 05:55 Serum or plasma sodium measurement (moles/volume) 139 mmol/L 135-145 Serum or plasma potassium measurement (moles/volume) 3.7 mmol/L 3.6-5.0 Serum or plasma chloride measurement (moles/volume) 97 mmol/L 98-107 Carbon dioxide 32 mmol/L 21-32 Serum or plasma anion gap determination (moles/volume) 10 mmol/L 5-14 Serum or plasma urea nitrogen measurement (mass/volume ) 6 mg/dL 7-18 Serum or plasma creatinine measurement (mass/volume) 0.68 mg/dL 0.60-1.30 Serum or plasma urea nitrogen/creatinine mass ratio 9 NRG Serum or plasma creatinine measurement w ith calculation of estimated glomerular filtration rate > NRG Serum or plasma glucose measurement (mass/volume) 101 mg/dL 70-105 Serum or plasma calcium measurement (mass/volume) 8.5 mg/dL 8.5-10.1 Complete blood count (CBC) with automate d white blood cell (WBC) differential - 08/01/17 05:55 Blood leukocytes automated count (number/volume) 7.9 10*3/uL 4.3-11.0 Blood erythrocytes automated count (number/volume) 3.52 10*6/uL 4.35-5.85 Venous blood hemoglobin measurement (mass/volume) 10.2 g/dL 13.3-17.7 Blood hematocrit (volume fraction) 32 % 40-54 Automated erythrocyte mean corpuscular volume 92 [ foz_us] 80-99 Automated erythrocyte mean corpuscular h emoglobin (mass per erythrocyte) 29 pg 25-34 Automated erythrocyte mean corpuscular h emoglobin concentration measurement (mass/volume) 32 g/dL 32-36 Automated erythrocyte distribution width ratio 14. 9 % 10.0- 14.5 Automated blood platelet count (count/volume) 236 10*3/uL 130-400 Automated blood platelet mean volume measurement 9.2 [foz_us] 7.4-10.4 Automated blood neutrophils/100 leukocytes 68 % 42-75 Automated blood lymphocytes/100 leukocytes 17 % 12-44 Blood monocytes/100 leukocytes 15 % 0-12 Automated blood eosinophils/100 leukocytes 0 % 0-10 Automated blood basophils/100 leukocytes 0 % 0-10 Blood neutrophils automated count (number/volume) 5.3 10*3 1.8-7.8 Blood lymphocytes automated count (number/volume) 1.3 10*3 1.0-4.0 Blood monocytes automated count (number/volume) 1. 2 10*3 0.0-1.0 Automated eosinophil count 0.0 10*3/uL 0 .0-0.3 Automated blood basophil count (count/volume) 0.0 10*3/uL 0.0-0.1 Complete blood count (CBC) with automate d white blood cell (WBC) differential - 08/05/17 10:20 Blood leukocytes automated count (number/volume) 8.9 10*3/uL 4.3-11.0 Blood erythrocytes automated count (number/volume) 3.54 10*6/uL 4.35-5.85 Venous blood hemoglobin measurement (mass/volume) 10.3 g/dL 13.3-17.7 Blood hematocrit (volume fraction) 33 % 40-54 Automated erythrocyte mean corpuscular volume 94 [ foz_us] 80-99 Automated erythrocyte mean corpuscular h emoglobin (mass per erythrocyte) 29 pg 25-34 Automated erythrocyte mean corpuscular h emoglobin concentration measurement (mass/volume) 31 g/dL 32-36 Automated erythrocyte distribution width ratio 15. 2 % 10.0- 14.5 Automated blood platelet count (count/volume) 238 10*3/uL 130-400 Automated blood platelet mean volume measurement 9.0 [foz_us] 7.4-10.4 Automated blood neutrophils/100 leukocytes 79 % 42-75 Automated blood lymphocytes/100 leukocytes 9 % 12-44 Blood monocytes/100 leukocytes 12 % 0-12 Automated blood eosinophils/100 leukocytes 0 % 0-10 Automated blood basophils/100 leukocytes 0 % 0-10 Blood neutrophils automated count (number/volume) 7.0 10*3 1.8-7.8 Blood lymphocytes automated count (number/volume) 0.8 10*3 1.0-4.0 Blood monocytes automated count (number/volume) 1. 0 10*3 0.0-1.0 Automated eosinophil count 0.0 10*3/uL 0 .0-0.3 Automated blood basophil count (count/volume) 0.0 10*3/uL 0.0-0.1 Blood lactic acid measurement (moles/vol ume) - 08/05/17 10:20 Blood lactic acid measurement (moles/volume) 0.61 mmol/L 0.50-2.00 Comprehensive metabolic panel - 08/05/17 10:20 Serum or plasma sodium measurement (moles/volume) 136 mmol/L 135-145 Serum or plasma potassium measurement (moles/volume) 5.3 mmol/L 3.6-5.0 Serum or plasma chloride measurement (moles/volume) 100 mmol/L 98-107 Carbon dioxide 32 mmol/L 21-32 Serum or plasma anion gap determination (moles/volume) 4 mmol/L 5-14 Serum or plasma urea nitrogen measurement (mass/volume ) 14 mg/dL 7-18 Serum or plasma creatinine measurement (mass/volume) 0.63 mg/dL 0.60-1.30 Serum or plasma urea nitrogen/creatinine mass ratio 22 NRG Serum or plasma creatinine measurement w ith calculation of estimated glomerular filtration rate > NRG Serum or plasma glucose measurement (mass/volume) 111 mg/dL 70-105 Serum or plasma calcium measurement (mass/volume) 8.6 mg/dL 8.5-10.1 Serum or plasma total bilirubin measurement (mass/volu me) 0.2 mg/dL 0.1-1.0 Serum or plasma alkaline phosphatase mick surement (enzymatic activity/volume) 128 U/L 40-136 Serum or plasma aspartate aminotransfera se measurement (enzymatic activity/volume) 12 U/L 5-34 Serum or plasma alanine aminotransferase measurement (enzymatic activity/volume) 7 U/L 0-55 Serum or plasma protein measurement (mass/volume) 7.6 g/dL 6.4-8.2 Serum or plasma albumin measurement (mass/volume) 4.0 g/dL 3.2-4.5 PT panel in platelet poor plasma by coag ulation assay - 08/05/17 10:20 Prothrombin time (PT) in platelet poor plasma by coagu lation assay 13.4 s 12.2-14.7 INR in platelet poor plasma or blood by coagulation as say 1.0 0.8-1.4 Activated partial thromboplastin time (a PTT) in platelet poor plasma bycoagulation assay - 08/05/17 10:20 Activated partial thromboplastin time (a PTT) in platelet poor plasma bycoagulation assay 38 s 24-35 Bacterial blood culture - 08/05/17 10:20 Bacterial blood culture NG NRG Arterial blood gas measurement - 8 10:28 Blood pCO2 65 mm[Hg] 35-45 Blood pO2 146 mm[Hg] 79-93 Arterial blood bicarbonate measurement (moles/volume) 32 mmol/L 23-27 Arterial blood base excess by calculation 6.4 mmol /L -2.5-2.5 Arterial blood oxygen saturation measurement 99 % 94-100 * Inhaled oxygen flow rate 5L NRG Arterial blood pH measurement with patient temperature correction 7.32 7.37-7.43 Arterial blood carbon dioxide, total measurement (mole s/volume) 34.3 mmol/L 21.0-31.0 Body site RT BRACH NRG Assessment of wrist artery patency prior to arterial p uncture YES-POS NRG Setting of ventilation mode NO NR G Measurement of body temperature 98.3 NRG Bacterial blood culture - 08/05/17 10:51 Bacterial blood culture NG NRG Sputum Gram stain - 08/05/17 11:30 Sputum Gram stain rods NRG Bacterial sputum culture - 08/05/17 11:3 0 FREE TEXT EXTERNAL SENSITIVITY REPORTED AT 1555, NRG QUANTITY OF GROWTH Abundant Growth NRG FREE TEXT ENTRY 2 PLUS NORMAL MAGED NRG Bacterial sputum culture [id number] NR Bacterial susceptibility panel - 8 11:30 Gentamicin susceptibility test by minimum inhibitory c oncentration <= NRG Trimethoprim/sulfamethoxazole susceptibi lity test by minimum inhibitoryconcentration S NRG Tobramycin susceptibility test by minimum inhibitory c oncentration <= NRG Cefazolin susceptibility test by minimum inhibitory co ncentration >= NRG Ceftriaxone susceptibility test by minimum inhibitory concentration <= NRG Ciprofloxacin susceptibility test by minimum inhibitor y concentration <= NRG Meropenem susceptibility test by minimum inhibitory co ncentration <= NRG Aztreonam susceptibility test by minimum inhibitory co ncentration <= NRG Complete urinalysis with reflex to cultu re - 08/05/17 12:30 Urine color determination YELLOW NRG Urine clarity determination CLEAR NR G Urine pH measurement by test strip 7 5-9 Specific gravity of urine by test strip 1.005 1.016-1.022 Urine protein assay by test strip, semi-quantitative NEGATIVE NEGATIVE Urine glucose detection by automated test strip NE GATIVE NEGATIVE Erythrocytes detection in urine sediment by light micr oscopy NEGATIVE NEGATIVE Urine ketones detection by automated test strip NE GATIVE NEGATIVE Urine nitrite detection by test strip NEGATIVE NEGATIVE Urine total bilirubin detection by test strip NEGA TIVE NEGATIVE Urine urobilinogen measurement by automated test strip (mass/volume) NORMAL NORMAL Urine leukocyte esterase detection by dipstick NEG ATIVE NEGATIVE Automated urine sediment erythrocyte cou nt by microscopy (number/high power field) NONE NRG Automated urine sediment leukocyte count by microscopy (number/high power field) NONE NRG Bacteria detection in urine sediment by light microsco py NEGATIVE NRG Squamous epithelial cells detection in u rine sediment by light microscopy 2-5 NRG Crystals detection in urine sediment by light microsco py NONE NRG Casts detection in urine sediment by light microscopy NONE NRG Mucus detection in urine sediment by light microscopy NEGATIVE NRG Complete urinalysis with reflex to culture NO NRG Complete blood count (CBC) with automate d white blood cell (WBC) differential - 08/06/17 05:58 Blood leukocytes automated count (number/volume) 6.1 10*3/uL 4.3-11.0 Blood erythrocytes automated count (number/volume) 3.58 10*6/uL 4.35-5.85 Venous blood hemoglobin measurement (mass/volume) 10.3 g/dL 13.3-17.7 Blood hematocrit (volume fraction) 33 % 40-54 Automated erythrocyte mean corpuscular volume 91 [ foz_us] 80-99 Automated erythrocyte mean corpuscular h emoglobin (mass per erythrocyte) 29 pg 25-34 Automated erythrocyte mean corpuscular h emoglobin concentration measurement (mass/volume) 32 g/dL 32-36 Automated erythrocyte distribution width ratio 14. 6 % 10.0- 14.5 Automated blood platelet count (count/volume) 233 10*3/uL 130-400 Automated blood platelet mean volume measurement 9.3 [foz_us] 7.4-10.4 Automated blood neutrophils/100 leukocytes 81 % 42-75 Automated blood lymphocytes/100 leukocytes 9 % 12-44 Blood monocytes/100 leukocytes 9 % 0-12 Automated blood eosinophils/100 leukocytes 0 % 0-10 Automated blood basophils/100 leukocytes 0 % 0-10 Blood neutrophils automated count (number/volume) 5.0 10*3 1.8-7.8 Blood lymphocytes automated count (number/volume) 0.6 10*3 1.0-4.0 Blood monocytes automated count (number/volume) 0. 6 10*3 0.0-1.0 Automated eosinophil count 0.0 10*3/uL 0 .0-0.3 Automated blood basophil count (count/volume) 0.0 10*3/uL 0.0-0.1 Comprehensive metabolic panel - 08/06/17 05:58 Serum or plasma sodium measurement (moles/volume) 137 mmol/L 135-145 Serum or plasma potassium measurement (moles/volume) 4.6 mmol/L 3.6-5.0 Serum or plasma chloride measurement (moles/volume) 99 mmol/L 98-107 Carbon dioxide 29 mmol/L 21-32 Serum or plasma anion gap determination (moles/volume) 9 mmol/L 5-14 Serum or plasma urea nitrogen measurement (mass/volume ) 9 mg/dL 7-18 Serum or plasma creatinine measurement (mass/volume) 0.62 mg/dL 0.60-1.30 Serum or plasma urea nitrogen/creatinine mass ratio 15 NRG Serum or plasma creatinine measurement w ith calculation of estimated glomerular filtration rate > NRG Serum or plasma glucose measurement (mass/volume) 112 mg/dL 70-105 Serum or plasma calcium measurement (mass/volume) 9.0 mg/dL 8.5-10.1 Serum or plasma total bilirubin measurement (mass/volu me) 0.2 mg/dL 0.1-1.0 Serum or plasma alkaline phosphatase mick surement (enzymatic activity/volume) 117 U/L 40-136 Serum or plasma aspartate aminotransfera se measurement (enzymatic activity/volume) 9 U/L 5-34 Serum or plasma alanine aminotransferase measurement (enzymatic activity/volume) < U/L 0-55 Serum or plasma protein measurement (mass/volume) 7.0 g/dL 6.4-8.2 Serum or plasma albumin measurement (mass/volume) 3.8 g/dL 3.2-4.5 Automated blood complete blood count (he mogram) panel - 08/07/17 05:37 Blood leukocytes automated count (number/volume) 5.2 10*3/uL 4.3-11.0 Blood erythrocytes automated count (number/volume) 3.62 10*6/uL 4.35-5.85 Venous blood hemoglobin measurement (mass/volume) 10.6 g/dL 13.3-17.7 Blood hematocrit (volume fraction) 33 % 40-54 Automated erythrocyte mean corpuscular volume 92 [ foz_us] 80-99 Automated erythrocyte mean corpuscular h emoglobin (mass per erythrocyte) 29 pg 25-34 Automated erythrocyte mean corpuscular h emoglobin concentration measurement (mass/volume) 32 g/dL 32-36 Automated erythrocyte distribution width ratio 15. 3 % 10.0- 14.5 Automated blood platelet count (count/volume) 267 10*3/uL 130-400 Automated blood platelet mean volume measurement 9.1 [foz_us] 7.4-10.4 Whole blood basic metabolic panel - 07/29 05:37 Serum or plasma sodium measurement (moles/volume) 140 mmol/L 135-145 Serum or plasma potassium measurement (moles/volume) 4.1 mmol/L 3.6-5.0 Serum or plasma chloride measurement (moles/volume) 101 mmol/L 98-107 Carbon dioxide 31 mmol/L 21-32 Serum or plasma anion gap determination (moles/volume) 8 mmol/L 5-14 Serum or plasma urea nitrogen measurement (mass/volume ) 12 mg/dL 7-18 Serum or plasma creatinine measurement (mass/volume) 0.70 mg/dL 0.60-1.30 Serum or plasma urea nitrogen/creatinine mass ratio 17 NRG Serum or plasma creatinine measurement w ith calculation of estimated glomerular filtration rate > NRG Serum or plasma glucose measurement (mass/volume) 87 mg/dL 70-105 Serum or plasma calcium measurement (mass/volume) 8.8 mg/dL 8.5-10.1 Complete blood count (CBC) with automate d white blood cell (WBC) differential - 09/24/17 03:35 Blood leukocytes automated count (number/volume) 6.6 10*3/uL 4.3-11.0 Blood erythrocytes automated count (number/volume) 3.89 10*6/uL 4.35-5.85 Venous blood hemoglobin measurement (mass/volume) 11.3 g/dL 13.3-17.7 Blood hematocrit (volume fraction) 33 % 40-54 Automated erythrocyte mean corpuscular volume 86 [ foz_us] 80-99 Automated erythrocyte mean corpuscular h emoglobin (mass per erythrocyte) 29 pg 25-34 Automated erythrocyte mean corpuscular h emoglobin concentration measurement (mass/volume) 34 g/dL 32-36 Automated erythrocyte distribution width ratio 15. 2 % 10.0- 14.5 Automated blood platelet count (count/volume) 197 10*3/uL 130-400 Automated blood platelet mean volume measurement 8.6 [foz_us] 7.4-10.4 Automated blood neutrophils/100 leukocytes 88 % 42-75 Automated blood lymphocytes/100 leukocytes 7 % 12-44 Blood monocytes/100 leukocytes 5 % 0-12 Automated blood eosinophils/100 leukocytes 0 % 0-10 Automated blood basophils/100 leukocytes 0 % 0-10 Blood neutrophils automated count (number/volume) 5.9 10*3 1.8-7.8 Blood lymphocytes automated count (number/volume) 0.4 10*3 1.0-4.0 Blood monocytes automated count (number/volume) 0. 3 10*3 0.0-1.0 Automated eosinophil count 0.0 10*3/uL 0 .0-0.3 Automated blood basophil count (count/volume) 0.0 10*3/uL 0.0-0.1 PT panel in platelet poor plasma by coag ulation assay - 09/24/17 03:35 Prothrombin time (PT) in platelet poor plasma by coagu lation assay 13.0 s 12.2-14.7 INR in platelet poor plasma or blood by coagulation as say 1.0 0.8-1.4 Activated partial thromboplastin time (a PTT) in platelet poor plasma bycoagulation assay - 09/24/17 03:35 Activated partial thromboplastin time (a PTT) in platelet poor plasma bycoagulation assay 35 s 24-35 Blood manual differential performed dete ction - 09/24/17 03:35 Blood monocytes/100 leukocytes 12 % NRG Manual blood segmented neutrophils/100 leukocytes 80 % NRG Blood band neutrophils/100 leukocytes 2 % NRG Manual blood lymphocytes/100 leukocytes 6 % NRG Manual eosinophils/100 leukocytes in nose 0 % NRG Manual blood basophils/100 leukocytes 0 % NRG Blood anisocytosis detection by light microscopy S LIGHT NRG Comprehensive metabolic panel - 09/24/17 03:35 Serum or plasma sodium measurement (moles/volume) 132 mmol/L 135-145 Serum or plasma potassium measurement (moles/volume) 4.8 mmol/L 3.6-5.0 Serum or plasma chloride measurement (moles/volume) 97 mmol/L 98-107 Carbon dioxide 24 mmol/L 21-32 Serum or plasma anion gap determination (moles/volume) 11 mmol/L 5-14 Serum or plasma urea nitrogen measurement (mass/volume ) 9 mg/dL 7-18 Serum or plasma creatinine measurement (mass/volume) 0.67 mg/dL 0.60-1.30 Serum or plasma urea nitrogen/creatinine mass ratio 13 NRG Serum or plasma creatinine measurement w ith calculation of estimated glomerular filtration rate > NRG Serum or plasma glucose measurement (mass/volume) 119 mg/dL 70-105 Serum or plasma calcium measurement (mass/volume) 9.4 mg/dL 8.5-10.1 Serum or plasma total bilirubin measurement (mass/volu me) 0.5 mg/dL 0.1-1.0 Serum or plasma alkaline phosphatase mick surement (enzymatic activity/volume) 124 U/L 40-136 Serum or plasma aspartate aminotransfera se measurement (enzymatic activity/volume) 15 U/L 5-34 Serum or plasma alanine aminotransferase measurement (enzymatic activity/volume) 7 U/L 0-55 Serum or plasma protein measurement (mass/volume) 7.6 g/dL 6.4-8.2 Serum or plasma albumin measurement (mass/volume) 4.3 g/dL 3.2-4.5 Magnesium - 09/24/17 03:35 Magnesium 1.9 mg/dL 1.8-2.4 Serum or plasma lithium measurement (mol es/volume) - 09/24/17 03:35 BNP level 93.3 pg/mL <100.0 Serum or plasma troponin i.cardiac measu rement (mass/volume) - 09/24/17 03:35 Serum or plasma troponin i.cardiac measurement (mass/v olume) < ng/mL <0.30 Serum or plasma carbamazepine measuremen t (mass/volume) - 09/24/17 03:35 Serum or plasma carbamazepine measurement (mass/volume ) 7.5 ug/mL 4.0-12.0 DILANTIN (PHENYTOIN) - 09/24/17 03:35 DILANTIN PHEN 8.2 % 10.0-20.0 Complete blood count (CBC) with automate d white blood cell (WBC) differential - 09/24/17 06:51 Blood leukocytes automated count (number/volume) 8.5 10*3/uL 4.3-11.0 Blood erythrocytes automated count (number/volume) 3.94 10*6/uL 4.35-5.85 Venous blood hemoglobin measurement (mass/volume) 11.5 g/dL 13.3-17.7 Blood hematocrit (volume fraction) 34 % 40-54 Automated erythrocyte mean corpuscular volume 86 [ foz_us] 80-99 Automated erythrocyte mean corpuscular h emoglobin (mass per erythrocyte) 29 pg 25-34 Automated erythrocyte mean corpuscular h emoglobin concentration measurement (mass/volume) 34 g/dL 32-36 Automated erythrocyte distribution width ratio 15. 3 % 10.0- 14.5 Automated blood platelet count (count/volume) 200 10*3/uL 130-400 Automated blood platelet mean volume measurement 9.3 [foz_us] 7.4-10.4 Automated blood neutrophils/100 leukocytes 95 % 42-75 Automated blood lymphocytes/100 leukocytes 3 % 12-44 Blood monocytes/100 leukocytes 3 % 0-12 Automated blood eosinophils/100 leukocytes 0 % 0-10 Automated blood basophils/100 leukocytes 0 % 0-10 Blood neutrophils automated count (number/volume) 8.1 10*3 1.8-7.8 Blood lymphocytes automated count (number/volume) 0.2 10*3 1.0-4.0 Blood monocytes automated count (number/volume) 0. 2 10*3 0.0-1.0 Automated eosinophil count 0.0 10*3/uL 0 .0-0.3 Automated blood basophil count (count/volume) 0.0 10*3/uL 0.0-0.1 Blood lactic acid measurement (moles/vol ume) - 09/24/17 06:51 Blood lactic acid measurement (moles/volume) 0.85 mmol/L 0.50-2.00 Comprehensive metabolic panel - 09/24/17 06:51 Serum or plasma sodium measurement (moles/volume) 129 mmol/L 135-145 Serum or plasma potassium measurement (moles/volume) 4.9 mmol/L 3.6-5.0 Serum or plasma chloride measurement (moles/volume) 96 mmol/L 98-107 Carbon dioxide 23 mmol/L 21-32 Serum or plasma anion gap determination (moles/volume) 10 mmol/L 5-14 Serum or plasma urea nitrogen measurement (mass/volume ) 10 mg/dL 7-18 Serum or plasma creatinine measurement (mass/volume) 0.69 mg/dL 0.60-1.30 Serum or plasma urea nitrogen/creatinine mass ratio 14 NRG Serum or plasma creatinine measurement w ith calculation of estimated glomerular filtration rate > NRG Serum or plasma glucose measurement (mass/volume) 144 mg/dL 70-105 Serum or plasma calcium measurement (mass/volume) 9.1 mg/dL 8.5-10.1 Serum or plasma total bilirubin measurement (mass/volu me) 0.6 mg/dL 0.1-1.0 Serum or plasma alkaline phosphatase mick surement (enzymatic activity/volume) 120 U/L 40-136 Serum or plasma aspartate aminotransfera se measurement (enzymatic activity/volume) 15 U/L 5-34 Serum or plasma alanine aminotransferase measurement (enzymatic activity/volume) 8 U/L 0-55 Serum or plasma protein measurement (mass/volume) 7.5 g/dL 6.4-8.2 Serum or plasma albumin measurement (mass/volume) 4.3 g/dL 3.2-4.5 PROCALCITONIN - 09/24/17 06:51 Procalcitonin [mass/volume] in serum or plasma 0.1 3 % <=0.10 Bacterial blood culture - 09/24/17 06:51 Bacterial blood culture NG NRG Bacterial blood culture - 09/24/17 08:00 Bacterial blood culture NG NRG Arterial blood gas measurement - 8 18:20 Blood pCO2 48 mm[Hg] 35-45 Blood pO2 62 mm[Hg] 79-93 Arterial blood bicarbonate measurement (moles/volume) 28 mmol/L 23-27 Arterial blood base excess by calculation 3.3 mmol /L -2.5-2.5 Arterial blood oxygen saturation measurement 92 % 94-100 * Inhaled oxygen flow rate 5 L NRG Arterial blood pH measurement with patient temperature correction 7.39 7.37-7.43 Arterial blood carbon dioxide, total measurement (mole s/volume) 29.4 mmol/L 21.0-31.0 Body site LEFT RADIAL NRG Assessment of wrist artery patency prior to arterial p uncture POSITIVE NRG Setting of ventilation mode NO NR G Measurement of body temperature 98.3 NRG Complete blood count (CBC) with automate d white blood cell (WBC) differential - 09/25/17 03:48 Blood leukocytes automated count (number/volume) 7.7 10*3/uL 4.3-11.0 Blood erythrocytes automated count (number/volume) 3.54 10*6/uL 4.35-5.85 Venous blood hemoglobin measurement (mass/volume) 10.6 g/dL 13.3-17.7 Blood hematocrit (volume fraction) 30 % 40-54 Automated erythrocyte mean corpuscular volume 86 [ foz_us] 80-99 Automated erythrocyte mean corpuscular h emoglobin (mass per erythrocyte) 30 pg 25-34 Automated erythrocyte mean corpuscular h emoglobin concentration measurement (mass/volume) 35 g/dL 32-36 Automated erythrocyte distribution width ratio 15. 1 % 10.0- 14.5 Automated blood platelet count (count/volume) 196 10*3/uL 130-400 Automated blood platelet mean volume measurement 9.1 [foz_us] 7.4-10.4 Automated blood neutrophils/100 leukocytes 86 % 42-75 Automated blood lymphocytes/100 leukocytes 9 % 12-44 Blood monocytes/100 leukocytes 5 % 0-12 Automated blood eosinophils/100 leukocytes 0 % 0-10 Automated blood basophils/100 leukocytes 0 % 0-10 Blood neutrophils automated count (number/volume) 6.7 10*3 1.8-7.8 Blood lymphocytes automated count (number/volume) 0.7 10*3 1.0-4.0 Blood monocytes automated count (number/volume) 0. 4 10*3 0.0-1.0 Automated eosinophil count 0.0 10*3/uL 0 .0-0.3 Automated blood basophil count (count/volume) 0.0 10*3/uL 0.0-0.1 Comprehensive metabolic panel - 09/25/17 03:48 Serum or plasma sodium measurement (moles/volume) 132 mmol/L 135-145 Serum or plasma potassium measurement (moles/volume) 4.2 mmol/L 3.6-5.0 Serum or plasma chloride measurement (moles/volume) 98 mmol/L 98-107 Carbon dioxide 23 mmol/L 21-32 Serum or plasma anion gap determination (moles/volume) 11 mmol/L 5-14 Serum or plasma urea nitrogen measurement (mass/volume ) 22 mg/dL 7-18 Serum or plasma creatinine measurement (mass/volume) 0.78 mg/dL 0.60-1.30 Serum or plasma urea nitrogen/creatinine mass ratio 28 NRG Serum or plasma creatinine measurement w ith calculation of estimated glomerular filtration rate > NRG Serum or plasma glucose measurement (mass/volume) 183 mg/dL 70-105 Serum or plasma calcium measurement (mass/volume) 9.0 mg/dL 8.5-10.1 Serum or plasma total bilirubin measurement (mass/volu me) 0.3 mg/dL 0.1-1.0 Serum or plasma alkaline phosphatase mick surement (enzymatic activity/volume) 96 U/L 40-136 Serum or plasma aspartate aminotransfera se measurement (enzymatic activity/volume) 12 U/L 5-34 Serum or plasma alanine aminotransferase measurement (enzymatic activity/volume) 8 U/L 0-55 Serum or plasma protein measurement (mass/volume) 6.9 g/dL 6.4-8.2 Serum or plasma albumin measurement (mass/volume) 4.0 g/dL 3.2-4.5 Serum or plasma phosphate measurement (m ass/volume) - 09/25/17 03:48 Serum or plasma phosphate measurement (mass/volume) 3.9 mg/dL 2.3-4.7 Magnesium - 09/25/17 03:48 Magnesium 2.6 mg/dL 1.8-2.4 Whole blood basic metabolic panel - 08/30 12/16 04:15 Serum or plasma sodium measurement (moles/volume) 130 mmol/L 135-145 Serum or plasma potassium measurement (moles/volume) 4.5 mmol/L 3.6-5.0 Serum or plasma chloride measurement (moles/volume) 95 mmol/L 98-107 Carbon dioxide 25 mmol/L 21-32 Serum or plasma anion gap determination (moles/volume) 10 mmol/L 5-14 Serum or plasma urea nitrogen measurement (mass/volume ) 21 mg/dL 7-18 Serum or plasma creatinine measurement (mass/volume) 0.70 mg/dL 0.60-1.30 Serum or plasma urea nitrogen/creatinine mass ratio 30 NRG Serum or plasma creatinine measurement w ith calculation of estimated glomerular filtration rate > NRG Serum or plasma glucose measurement (mass/volume) 166 mg/dL 70-105 Serum or plasma calcium measurement (mass/volume) 9.3 mg/dL 8.5-10.1 Serum or plasma phosphate measurement (m ass/volume) - 09/26/17 04:15 Serum or plasma phosphate measurement (mass/volume) 3.2 mg/dL 2.3-4.7 Magnesium - 09/26/17 04:15 Magnesium 2.3 mg/dL 1.8-2.4 Complete blood count (CBC) with automate d white blood cell (WBC) differential - 09/26/17 04:15 Blood leukocytes automated count (number/volume) 6.8 10*3/uL 4.3-11.0 Blood erythrocytes automated count (number/volume) 3.48 10*6/uL 4.35-5.85 Venous blood hemoglobin measurement (mass/volume) 10.1 g/dL 13.3-17.7 Blood hematocrit (volume fraction) 30 % 40-54 Automated erythrocyte mean corpuscular volume 86 [ foz_us] 80-99 Automated erythrocyte mean corpuscular h emoglobin (mass per erythrocyte) 29 pg 25-34 Automated erythrocyte mean corpuscular h emoglobin concentration measurement (mass/volume) 34 g/dL 32-36 Automated erythrocyte distribution width ratio 15. 3 % 10.0- 14.5 Automated blood platelet count (count/volume) 204 10*3/uL 130-400 Automated blood platelet mean volume measurement 9.0 [foz_us] 7.4-10.4 Automated blood neutrophils/100 leukocytes 89 % 42-75 Automated blood lymphocytes/100 leukocytes 5 % 12-44 Blood monocytes/100 leukocytes 5 % 0-12 Automated blood eosinophils/100 leukocytes 0 % 0-10 Automated blood basophils/100 leukocytes 0 % 0-10 Blood neutrophils automated count (number/volume) 6.1 10*3 1.8-7.8 Blood lymphocytes automated count (number/volume) 0.4 10*3 1.0-4.0 Blood monocytes automated count (number/volume) 0. 4 10*3 0.0-1.0 Automated eosinophil count 0.0 10*3/uL 0 .0-0.3 Automated blood basophil count (count/volume) 0.0 10*3/uL 0.0-0.1 Complete blood count (CBC) with automate d white blood cell (WBC) differential - 09/27/17 05:15 Blood leukocytes automated count (number/volume) 4.4 10*3/uL 4.3-11.0 Blood erythrocytes automated count (number/volume) 3.40 10*6/uL 4.35-5.85 Venous blood hemoglobin measurement (mass/volume) 10.1 g/dL 13.3-17.7 Blood hematocrit (volume fraction) 29 % 40-54 Automated erythrocyte mean corpuscular volume 87 [ foz_us] 80-99 Automated erythrocyte mean corpuscular h emoglobin (mass per erythrocyte) 30 pg 25-34 Automated erythrocyte mean corpuscular h emoglobin concentration measurement (mass/volume) 34 g/dL 32-36 Automated erythrocyte distribution width ratio 15. 2 % 10.0- 14.5 Automated blood platelet count (count/volume) 224 10*3/uL 130-400 Automated blood platelet mean volume measurement 9.3 [foz_us] 7.4-10.4 Automated blood neutrophils/100 leukocytes 57 % 42-75 Automated blood lymphocytes/100 leukocytes 24 % 12-44 Blood monocytes/100 leukocytes 19 % 0-12 Automated blood eosinophils/100 leukocytes 0 % 0-10 Automated blood basophils/100 leukocytes 0 % 0-10 Blood neutrophils automated count (number/volume) 2.5 10*3 1.8-7.8 Blood lymphocytes automated count (number/volume) 1.0 10*3 1.0-4.0 Blood monocytes automated count (number/volume) 0. 8 10*3 0.0-1.0 Automated eosinophil count 0.0 10*3/uL 0 .0-0.3 Automated blood basophil count (count/volume) 0.0 10*3/uL 0.0-0.1 Serum or plasma phosphate measurement (m ass/volume) - 09/27/17 05:15 Serum or plasma phosphate measurement (mass/volume) 3.6 mg/dL 2.3-4.7 Magnesium - 09/27/17 05:15 Magnesium 2.0 mg/dL 1.8-2.4 Comprehensive metabolic panel - 09/27/17 05:15 Serum or plasma sodium measurement (moles/volume) 134 mmol/L 135-145 Serum or plasma potassium measurement (moles/volume) 4.1 mmol/L 3.6-5.0 Serum or plasma chloride measurement (moles/volume) 99 mmol/L 98-107 Carbon dioxide 25 mmol/L 21-32 Serum or plasma anion gap determination (moles/volume) 10 mmol/L 5-14 Serum or plasma urea nitrogen measurement (mass/volume ) 14 mg/dL 7-18 Serum or plasma creatinine measurement (mass/volume) 0.69 mg/dL 0.60-1.30 Serum or plasma urea nitrogen/creatinine mass ratio 20 NRG Serum or plasma creatinine measurement w ith calculation of estimated glomerular filtration rate > NRG Serum or plasma glucose measurement (mass/volume) 104 mg/dL 70-105 Serum or plasma calcium measurement (mass/volume) 8.9 mg/dL 8.5-10.1 Serum or plasma total bilirubin measurement (mass/volu me) 0.2 mg/dL 0.1-1.0 Serum or plasma alkaline phosphatase mick surement (enzymatic activity/volume) 84 U/L 40-136 Serum or plasma aspartate aminotransfera se measurement (enzymatic activity/volume) 9 U/L 5-34 Serum or plasma alanine aminotransferase measurement (enzymatic activity/volume) 7 U/L 0-55 Serum or plasma protein measurement (mass/volume) 6.0 g/dL 6.4-8.2 Serum or plasma albumin measurement (mass/volume) 3.6 g/dL 3.2-4.5 Complete blood count (CBC) with automate d white blood cell (WBC) differential - 09/28/17 06:08 Blood leukocytes automated count (number/volume) 4.2 10*3/uL 4.3-11.0 Blood erythrocytes automated count (number/volume) 3.26 10*6/uL 4.35-5.85 Venous blood hemoglobin measurement (mass/volume) 9.5 g/dL 13.3-17.7 Blood hematocrit (volume fraction) 28 % 40-54 Automated erythrocyte mean corpuscular volume 87 [ foz_us] 80-99 Automated erythrocyte mean corpuscular h emoglobin (mass per erythrocyte) 29 pg 25-34 Automated erythrocyte mean corpuscular h emoglobin concentration measurement (mass/volume) 34 g/dL 32-36 Automated erythrocyte distribution width ratio 15. 3 % 10.0- 14.5 Automated blood platelet count (count/volume) 240 10*3/uL 130-400 Automated blood platelet mean volume measurement 8.5 [foz_us] 7.4-10.4 Automated blood neutrophils/100 leukocytes 58 % 42-75 Automated blood lymphocytes/100 leukocytes 22 % 12-44 Blood monocytes/100 leukocytes 19 % 0-12 Automated blood eosinophils/100 leukocytes 0 % 0-10 Automated blood basophils/100 leukocytes 1 % 0-10 Blood neutrophils automated count (number/volume) 2.4 10*3 1.8-7.8 Blood lymphocytes automated count (number/volume) 0.9 10*3 1.0-4.0 Blood monocytes automated count (number/volume) 0. 8 10*3 0.0-1.0 Automated eosinophil count 0.0 10*3/uL 0 .0-0.3 Automated blood basophil count (count/volume) 0.0 10*3/uL 0.0-0.1 Whole blood basic metabolic panel - 04/17 06:08 Serum or plasma sodium measurement (moles/volume) 133 mmol/L 135-145 Serum or plasma potassium measurement (moles/volume) 4.1 mmol/L 3.6-5.0 Serum or plasma chloride measurement (moles/volume) 97 mmol/L 98-107 Carbon dioxide 27 mmol/L 21-32 Serum or plasma anion gap determination (moles/volume) 9 mmol/L 5-14 Serum or plasma urea nitrogen measurement (mass/volume ) 13 mg/dL 7-18 Serum or plasma creatinine measurement (mass/volume) 0.66 mg/dL 0.60-1.30 Serum or plasma urea nitrogen/creatinine mass ratio 20 NRG Serum or plasma creatinine measurement w ith calculation of estimated glomerular filtration rate > NRG Serum or plasma glucose measurement (mass/volume) 93 mg/dL 70-105 Serum or plasma calcium measurement (mass/volume) 8.6 mg/dL 8.5-10.1 Serum or plasma phosphate measurement (m ass/volume) - 09/28/17 06:08 Serum or plasma phosphate measurement (mass/volume) 3.4 mg/dL 2.3-4.7 Magnesium - 09/28/17 06:08 Magnesium 2.2 mg/dL 1.8-2.4 Microscopic examination by ANDREW preparati on - 10/07/17 12:10 ANDREW RESULT POSITIVE; FUNGAL HYPHAE OBSERVED NRG Complete blood count (CBC) with automate d white blood cell (WBC) differential - 12/04/17 06:00 Blood leukocytes automated count (number/volume) 3.3 10*3/uL 4.3-11.0 Blood erythrocytes automated count (number/volume) 3.15 10*6/uL 4.35-5.85 Venous blood hemoglobin measurement (mass/volume) 9.7 g/dL 13.3-17.7 Blood hematocrit (volume fraction) 30 % 40-54 Automated erythrocyte mean corpuscular volume 94 [ foz_us] 80-99 Automated erythrocyte mean corpuscular h emoglobin (mass per erythrocyte) 31 pg 25-34 Automated erythrocyte mean corpuscular h emoglobin concentration measurement (mass/volume) 33 g/dL 32-36 Automated erythrocyte distribution width ratio 17. 2 % 10.0- 14.5 Automated blood platelet count (count/volume) 201 10*3/uL 130-400 Automated blood platelet mean volume measurement 8.6 [foz_us] 7.4-10.4 Automated blood neutrophils/100 leukocytes 64 % 42-75 Automated blood lymphocytes/100 leukocytes 22 % 12-44 Blood monocytes/100 leukocytes 13 % 0-12 Automated blood eosinophils/100 leukocytes 0 % 0-10 Automated blood basophils/100 leukocytes 1 % 0-10 Blood neutrophils automated count (number/volume) 2.1 10*3 1.8-7.8 Blood lymphocytes automated count (number/volume) 0.7 10*3 1.0-4.0 Blood monocytes automated count (number/volume) 0. 4 10*3 0.0-1.0 Automated eosinophil count 0.0 10*3/uL 0 .0-0.3 Automated blood basophil count (count/volume) 0.0 10*3/uL 0.0-0.1 Comprehensive metabolic panel - 12/04/17 06:00 Serum or plasma sodium measurement (moles/volume) 136 mmol/L 135-145 Serum or plasma potassium measurement (moles/volume) 4.5 mmol/L 3.6-5.0 Serum or plasma chloride measurement (moles/volume) 104 mmol/L 98-107 Carbon dioxide 25 mmol/L 21-32 Serum or plasma anion gap determination (moles/volume) 7 mmol/L 5-14 Serum or plasma urea nitrogen measurement (mass/volume ) 20 mg/dL 7-18 Serum or plasma creatinine measurement (mass/volume) 0.78 mg/dL 0.60-1.30 Serum or plasma urea nitrogen/creatinine mass ratio 26 NRG Serum or plasma creatinine measurement w ith calculation of estimated glomerular filtration rate > NRG Serum or plasma glucose measurement (mass/volume) 106 mg/dL 70-105 Serum or plasma calcium measurement (mass/volume) 9.1 mg/dL 8.5-10.1 Serum or plasma total bilirubin measurement (mass/volu me) 0.2 mg/dL 0.1-1.0 Serum or plasma alkaline phosphatase mick surement (enzymatic activity/volume) 104 U/L 40-136 Serum or plasma aspartate aminotransfera se measurement (enzymatic activity/volume) 12 U/L 5-34 Serum or plasma alanine aminotransferase measurement (enzymatic activity/volume) 9 U/L 0-55 Serum or plasma protein measurement (mass/volume) 7.2 g/dL 6.4-8.2 Serum or plasma albumin measurement (mass/volume) 4.2 g/dL 3.2-4.5 CALCIUM CORRECTED 8.9 mg/dL 8.5-10.1 Serum or plasma C reactive protein measu rement (mass/volume) - 12/04/17 06:00 Serum or plasma C reactive protein measurement (mass/v olume) 0.84 mg/dL 0.00-0.50 Fibrin D-dimer FEU measurement in platel et poor plasma (mass/volume) - 12/04/17 06:00 Fibrin D-dimer FEU measurement in platelet poor plasma (mass/volume) 0.47 ug/mL 0.00-0.49 Automated blood complete blood count (he mogram) panel - 12/05/17 08:30 Blood leukocytes automated count (number/volume) 4.1 10*3/uL 4.3-11.0 Blood erythrocytes automated count (number/volume) 3.22 10*6/uL 4.35-5.85 Venous blood hemoglobin measurement (mass/volume) 9.8 g/dL 13.3-17.7 Blood hematocrit (volume fraction) 30 % 40-54 Automated erythrocyte mean corpuscular volume 94 [ foz_us] 80-99 Automated erythrocyte mean corpuscular h emoglobin (mass per erythrocyte) 30 pg 25-34 Automated erythrocyte mean corpuscular h emoglobin concentration measurement (mass/volume) 32 g/dL 32-36 Automated erythrocyte distribution width ratio 17. 4 % 10.0- 14.5 Automated blood platelet count (count/volume) 188 10*3/uL 130-400 Automated blood platelet mean volume measurement 8.3 [foz_us] 7.4-10.4 Comprehensive metabolic panel - 12/05/17 08:30 Serum or plasma sodium measurement (moles/volume) 134 mmol/L 135-145 Serum or plasma potassium measurement (moles/volume) 4.3 mmol/L 3.6-5.0 Serum or plasma chloride measurement (moles/volume) 100 mmol/L 98-107 Carbon dioxide 25 mmol/L 21-32 Serum or plasma anion gap determination (moles/volume) 9 mmol/L 5-14 Serum or plasma urea nitrogen measurement (mass/volume ) 12 mg/dL 7-18 Serum or plasma creatinine measurement (mass/volume) 0.70 mg/dL 0.60-1.30 Serum or plasma urea nitrogen/creatinine mass ratio 17 NRG Serum or plasma creatinine measurement w ith calculation of estimated glomerular filtration rate > NRG Serum or plasma glucose measurement (mass/volume) 137 mg/dL 70-105 Serum or plasma calcium measurement (mass/volume) 9.7 mg/dL 8.5-10.1 Serum or plasma total bilirubin measurement (mass/volu me) 0.2 mg/dL 0.1-1.0 Serum or plasma alkaline phosphatase mick surement (enzymatic activity/volume) 99 U/L 40-136 Serum or plasma aspartate aminotransfera se measurement (enzymatic activity/volume) 7 U/L 5-34 Serum or plasma alanine aminotransferase measurement (enzymatic activity/volume) 10 U/L 0-55 Serum or plasma protein measurement (mass/volume) 7.0 g/dL 6.4-8.2 Serum or plasma albumin measurement (mass/volume) 4.2 g/dL 3.2-4.5 CALCIUM CORRECTED 9.5 mg/dL 8.5-10.1 Automated blood complete blood count (he mogram) panel - 12/06/17 04:26 Blood leukocytes automated count (number/volume) 5.6 10*3/uL 4.3-11.0 Blood erythrocytes automated count (number/volume) 3.07 10*6/uL 4.35-5.85 Venous blood hemoglobin measurement (mass/volume) 9.6 g/dL 13.3-17.7 Blood hematocrit (volume fraction) 29 % 40-54 Automated erythrocyte mean corpuscular volume 95 [ foz_us] 80-99 Automated erythrocyte mean corpuscular h emoglobin (mass per erythrocyte) 31 pg 25-34 Automated erythrocyte mean corpuscular h emoglobin concentration measurement (mass/volume) 33 g/dL 32-36 Automated erythrocyte distribution width ratio 17. 3 % 10.0- 14.5 Automated blood platelet count (count/volume) 199 10*3/uL 130-400 Automated blood platelet mean volume measurement 8.8 [foz_us] 7.4-10.4 Whole blood basic metabolic panel - 11/15 04:26 Serum or plasma sodium measurement (moles/volume) 135 mmol/L 135-145 Serum or plasma potassium measurement (moles/volume) 4.1 mmol/L 3.6-5.0 Serum or plasma chloride measurement (moles/volume) 100 mmol/L 98-107 Carbon dioxide 26 mmol/L 21-32 Serum or plasma anion gap determination (moles/volume) 9 mmol/L 5-14 Serum or plasma urea nitrogen measurement (mass/volume ) 13 mg/dL 7-18 Serum or plasma creatinine measurement (mass/volume) 0.71 mg/dL 0.60-1.30 Serum or plasma urea nitrogen/creatinine mass ratio 18 NRG Serum or plasma creatinine measurement w ith calculation of estimated glomerular filtration rate > NRG Serum or plasma glucose measurement (mass/volume) 98 mg/dL 70-105 Serum or plasma calcium measurement (mass/volume) 9.3 mg/dL 8.5-10.1 Complete blood count (CBC) with automate d white blood cell (WBC) differential - 12/26/17 13:30 Blood leukocytes automated count (number/volume) 2.5 10*3/uL 4.3-11.0 Blood erythrocytes automated count (number/volume) 3.06 10*6/uL 4.35-5.85 Venous blood hemoglobin measurement (mass/volume) 9.7 g/dL 13.3-17.7 Blood hematocrit (volume fraction) 29 % 40-54 Automated erythrocyte mean corpuscular volume 94 [ foz_us] 80-99 Automated erythrocyte mean corpuscular h emoglobin (mass per erythrocyte) 32 pg 25-34 Automated erythrocyte mean corpuscular h emoglobin concentration measurement (mass/volume) 34 g/dL 32-36 Automated erythrocyte distribution width ratio 15. 1 % 10.0- 14.5 Automated blood platelet count (count/volume) 188 10*3/uL 130-400 Automated blood platelet mean volume measurement 8.2 [foz_us] 7.4-10.4 Automated blood neutrophils/100 leukocytes 58 % 42-75 Automated blood lymphocytes/100 leukocytes 29 % 12-44 Blood monocytes/100 leukocytes 13 % 0-12 Automated blood eosinophils/100 leukocytes 0 % 0-10 Automated blood basophils/100 leukocytes 0 % 0-10 Blood neutrophils automated count (number/volume) 1.5 10*3 1.8-7.8 Blood lymphocytes automated count (number/volume) 0.7 10*3 1.0-4.0 Blood monocytes automated count (number/volume) 0. 3 10*3 0.0-1.0 Automated eosinophil count 0.0 10*3/uL 0 .0-0.3 Automated blood basophil count (count/volume) 0.0 10*3/uL 0.0-0.1 Comprehensive metabolic panel - 12/26/17 13:30 Serum or plasma sodium measurement (moles/volume) 134 mmol/L 135-145 Serum or plasma potassium measurement (moles/volume) 4.3 mmol/L 3.6-5.0 Serum or plasma chloride measurement (moles/volume) 99 mmol/L 98-107 Carbon dioxide 26 mmol/L 21-32 Serum or plasma anion gap determination (moles/volume) 9 mmol/L 5-14 Serum or plasma urea nitrogen measurement (mass/volume ) 12 mg/dL 7-18 Serum or plasma creatinine measurement (mass/volume) 0.78 mg/dL 0.60-1.30 Serum or plasma urea nitrogen/creatinine mass ratio 15 NRG Serum or plasma creatinine measurement w ith calculation of estimated glomerular filtration rate > NRG Serum or plasma glucose measurement (mass/volume) 94 mg/dL 70-105 Serum or plasma calcium measurement (mass/volume) 9.1 mg/dL 8.5-10.1 Serum or plasma total bilirubin measurement (mass/volu me) 0.2 mg/dL 0.1-1.0 Serum or plasma alkaline phosphatase mick surement (enzymatic activity/volume) 126 U/L 40-136 Serum or plasma aspartate aminotransfera se measurement (enzymatic activity/volume) 13 U/L 5-34 Serum or plasma alanine aminotransferase measurement (enzymatic activity/volume) 7 U/L 0-55 Serum or plasma protein measurement (mass/volume) 7.2 g/dL 6.4-8.2 Serum or plasma albumin measurement (mass/volume) 4.0 g/dL 3.2-4.5 CALCIUM CORRECTED 9.1 mg/dL 8.5-10.1 Complete blood count (CBC) with automate d white blood cell (WBC) differential - 01/26/18 13:35 Blood leukocytes automated count (number/volume) 6.8 10*3/uL 4.3-11.0 Blood erythrocytes automated count (number/volume) 3.62 10*6/uL 4.35-5.85 Venous blood hemoglobin measurement (mass/volume) 11.1 g/dL 13.3-17.7 Blood hematocrit (volume fraction) 34 % 40-54 Automated erythrocyte mean corpuscular volume 93 [ foz_us] 80-99 Automated erythrocyte mean corpuscular h emoglobin (mass per erythrocyte) 31 pg 25-34 Automated erythrocyte mean corpuscular h emoglobin concentration measurement (mass/volume) 33 g/dL 32-36 Automated erythrocyte distribution width ratio 14. 5 % 10.0- 14.5 Automated blood platelet count (count/volume) 205 10*3/uL 130-400 Automated blood platelet mean volume measurement 9.0 [foz_us] 7.4-10.4 Automated blood neutrophils/100 leukocytes 85 % 42-75 Automated blood lymphocytes/100 leukocytes 9 % 12-44 Blood monocytes/100 leukocytes 6 % 0-12 Automated blood eosinophils/100 leukocytes 0 % 0-10 Automated blood basophils/100 leukocytes 0 % 0-10 Blood neutrophils automated count (number/volume) 5.8 10*3 1.8-7.8 Blood lymphocytes automated count (number/volume) 0.6 10*3 1.0-4.0 Blood monocytes automated count (number/volume) 0. 4 10*3 0.0-1.0 Automated eosinophil count 0.0 10*3/uL 0 .0-0.3 Automated blood basophil count (count/volume) 0.0 10*3/uL 0.0-0.1 Comprehensive metabolic panel - 01/26/18 13:35 Serum or plasma sodium measurement (moles/volume) 129 mmol/L 135-145 Serum or plasma potassium measurement (moles/volume) 4.5 mmol/L 3.6-5.0 Serum or plasma chloride measurement (moles/volume) 94 mmol/L 98-107 Carbon dioxide 26 mmol/L 21-32 Serum or plasma anion gap determination (moles/volume) 9 mmol/L 5-14 Serum or plasma urea nitrogen measurement (mass/volume ) 14 mg/dL 7-18 Serum or plasma creatinine measurement (mass/volume) 0.83 mg/dL 0.60-1.30 Serum or plasma urea nitrogen/creatinine mass ratio 17 NRG Serum or plasma creatinine measurement w ith calculation of estimated glomerular filtration rate > NRG Serum or plasma glucose measurement (mass/volume) 177 mg/dL 70-105 Serum or plasma calcium measurement (mass/volume) 9.3 mg/dL 8.5-10.1 Serum or plasma total bilirubin measurement (mass/volu me) 0.5 mg/dL 0.1-1.0 Serum or plasma alkaline phosphatase mick surement (enzymatic activity/volume) 119 U/L 40-136 Serum or plasma aspartate aminotransfera se measurement (enzymatic activity/volume) 8 U/L 5-34 Serum or plasma alanine aminotransferase measurement (enzymatic activity/volume) 8 U/L 0-55 Serum or plasma protein measurement (mass/volume) 7.5 g/dL 6.4-8.2 Serum or plasma albumin measurement (mass/volume) 4.2 g/dL 3.2-4.5 CALCIUM CORRECTED 9.1 mg/dL 8.5-10.1 PT panel in platelet poor plasma by coag ulation assay - 01/26/18 13:35 Prothrombin time (PT) in platelet poor plasma by coagu lation assay 13.7 s 12.2-14.7 INR in platelet poor plasma or blood by coagulation as say 1.0 0.8-1.4 Activated partial thromboplastin time (a PTT) in platelet poor plasma bycoagulation assay - 01/26/18 13:35 Activated partial thromboplastin time (a PTT) in platelet poor plasma bycoagulation assay 37 s 24-35 Blood lactic acid measurement (moles/vol ume) - 01/26/18 13:35 Blood lactic acid measurement (moles/volume) 1.41 mmol/L 0.50-2.00 Influenza virus A and B antigen detectio n - 01/26/18 13:35 FLU RESULT NEGATIVE FOR INFLUENZA A AND B ANTIGENS BY [place] [facility] [place] Bacterial blood culture - 01/26/18 13:35 Bacterial blood culture NG [facility] [place] Bacterial blood culture - 01/26/18 14:08 Bacterial blood culture NG [facility] [place] Complete blood count (CBC) with automate d white blood cell (WBC) differential - 01/27/18 05:20 Blood leukocytes automated count (number/volume) 4.3 10*3/uL 4.3-11.0 Blood erythrocytes automated count (number/volume) 2.92 10*6/uL 4.35-5.85 Venous blood hemoglobin measurement (mass/volume) 9.1 g/dL 13.3-17.7 Blood hematocrit (volume fraction) 27 % 40-54 Automated erythrocyte mean corpuscular volume 94 [ foz_us] 80-99 Automated erythrocyte mean corpuscular h emoglobin (mass per erythrocyte) 31 pg 25-34 Automated erythrocyte mean corpuscular h emoglobin concentration measurement (mass/volume) 33 g/dL 32-36 Automated erythrocyte distribution width ratio 14. 5 % 10.0- 14.5 Automated blood platelet count (count/volume) 179 10*3/uL 130-400 Automated blood platelet mean volume measurement 8.9 [foz_us] 7.4-10.4 Automated blood neutrophils/100 leukocytes 72 % 42-75 Automated blood lymphocytes/100 leukocytes 17 % 12-44 Blood monocytes/100 leukocytes 10 % 0-12 Automated blood eosinophils/100 leukocytes 0 % 0-10 Automated blood basophils/100 leukocytes 1 % 0-10 Blood neutrophils automated count (number/volume) 3.1 10*3 1.8-7.8 Blood lymphocytes automated count (number/volume) 0.8 10*3 1.0-4.0 Blood monocytes automated count (number/volume) 0. 4 10*3 0.0-1.0 Automated eosinophil count 0.0 10*3/uL 0 .0-0.3 Automated blood basophil count (count/volume) 0.0 10*3/uL 0.0-0.1 Comprehensive metabolic panel - 01/27/18 05:20 Serum or plasma sodium measurement (moles/volume) 132 mmol/L 135-145 Serum or plasma potassium measurement (moles/volume) 4.0 mmol/L 3.6-5.0 Serum or plasma chloride measurement (moles/volume) 100 mmol/L 98-107 Carbon dioxide 24 mmol/L 21-32 Serum or plasma anion gap determination (moles/volume) 8 mmol/L 5-14 Serum or plasma urea nitrogen measurement (mass/volume ) 9 mg/dL 7-18 Serum or plasma creatinine measurement (mass/volume) 0.68 mg/dL 0.60-1.30 Serum or plasma urea nitrogen/creatinine mass ratio 13 NRG Serum or plasma creatinine measurement w ith calculation of estimated glomerular filtration rate > NRG Serum or plasma glucose measurement (mass/volume) 122 mg/dL 70-105 Serum or plasma calcium measurement (mass/volume) 8.5 mg/dL 8.5-10.1 Serum or plasma total bilirubin measurement (mass/volu me) 0.2 mg/dL 0.1-1.0 Serum or plasma alkaline phosphatase mick surement (enzymatic activity/volume) 97 U/L 40-136 Serum or plasma aspartate aminotransfera se measurement (enzymatic activity/volume) 11 U/L 5-34 Serum or plasma alanine aminotransferase measurement (enzymatic activity/volume) 7 U/L 0-55 Serum or plasma protein measurement (mass/volume) 6.5 g/dL 6.4-8.2 Serum or plasma albumin measurement (mass/volume) 3.7 g/dL 3.2-4.5 CALCIUM CORRECTED 8.7 mg/dL 8.5-10.1 DILANTIN (PHENYTOIN) - 01/27/18 05:20 DILANTIN PHEN 17.4 % 10.0-20.0 Blood CBC with ordered manual differenti al panel - 01/28/18 05:40 Blood leukocytes automated count (number/volume) 3.4 10*3/uL 4.3-11.0 Blood erythrocytes automated count (number/volume) 2.86 10*6/uL 4.35-5.85 Venous blood hemoglobin measurement (mass/volume) 8.8 g/dL 13.3-17.7 Blood hematocrit (volume fraction) 27 % 40-54 Automated erythrocyte mean corpuscular volume 94 [ foz_us] 80-99 Automated erythrocyte mean corpuscular h emoglobin (mass per erythrocyte) 31 pg 25-34 Automated erythrocyte mean corpuscular h emoglobin concentration measurement (mass/volume) 33 g/dL 32-36 Automated erythrocyte distribution width ratio 14. 2 % 10.0- 14.5 Automated blood platelet count (count/volume) 168 10*3/uL 130-400 Automated blood platelet mean volume measurement 8.8 [foz_us] 7.4-10.4 Automated blood neutrophils/100 leukocytes 69 % 42-75 Automated blood lymphocytes/100 leukocytes 17 % 12-44 Blood monocytes/100 leukocytes 11 % NRG Automated blood eosinophils/100 leukocytes 0 % 0-10 Automated blood basophils/100 leukocytes 1 % 0-10 Blood neutrophils automated count (number/volume) 2.4 10*3 1.8-7.8 Blood lymphocytes automated count (number/volume) 0.6 10*3 1.0-4.0 Blood monocytes automated count (number/volume) 0. 4 10*3 0.0-1.0 Automated eosinophil count 0.0 10*3/uL 0 .0-0.3 Automated blood basophil count (count/volume) 0.0 10*3/uL 0.0-0.1 Manual blood segmented neutrophils/100 leukocytes 73 % NRG Manual blood lymphocytes/100 leukocytes 16 % NRG Whole blood basic metabolic panel - 12/31 04/17 05:40 Serum or plasma sodium measurement (moles/volume) 135 mmol/L 135-145 Serum or plasma potassium measurement (moles/volume) 4.0 mmol/L 3.6-5.0 Serum or plasma chloride measurement (moles/volume) 100 mmol/L 98-107 Carbon dioxide 28 mmol/L 21-32 Serum or plasma anion gap determination (moles/volume) 7 mmol/L 5-14 Serum or plasma urea nitrogen measurement (mass/volume ) 6 mg/dL 7-18 Serum or plasma creatinine measurement (mass/volume) 0.68 mg/dL 0.60-1.30 Serum or plasma urea nitrogen/creatinine mass ratio 9 NRG Serum or plasma creatinine measurement w ith calculation of estimated glomerular filtration rate > NRG Serum or plasma glucose measurement (mass/volume) 165 mg/dL 70-105 Serum or plasma calcium measurement (mass/volume) 8.8 mg/dL 8.5-10.1 Arterial blood gas measurement - 8 20:50 Blood pCO2 53 mm[Hg] 35-45 Blood pO2 70 mm[Hg] 79-93 Arterial blood bicarbonate measurement (moles/volume) 30 mmol/L 23-27 Arterial blood base excess by calculation 6.0 mmol /L -2.5-2.5 Arterial blood oxygen saturation measurement 90 % 94-100 * Inhaled oxygen flow rate 6L NRG Arterial blood pH measurement with patient temperature correction 7.39 7.37-7.43 Arterial blood carbon dioxide, total measurement (mole s/volume) 31.7 mmol/L 21.0-31.0 Body site RT RAD NRG Assessment of wrist artery patency prior to arterial p uncture YES-POS NRG Setting of ventilation mode NO NR G Measurement of body temperature 103.8 NRG Bacterial blood culture - 01/28/18 21:14 Bacterial blood culture NG NRG Complete blood count (CBC) with automate d white blood cell (WBC) differential - 01/28/18 21:25 Blood leukocytes automated count (number/volume) 5.8 10*3/uL 4.3-11.0 Blood erythrocytes automated count (number/volume) 3.24 10*6/uL 4.35-5.85 Venous blood hemoglobin measurement (mass/volume) 9.9 g/dL 13.3-17.7 Blood hematocrit (volume fraction) 30 % 40-54 Automated erythrocyte mean corpuscular volume 94 [ foz_us] 80-99 Automated erythrocyte mean corpuscular h emoglobin (mass per erythrocyte) 31 pg 25-34 Automated erythrocyte mean corpuscular h emoglobin concentration measurement (mass/volume) 33 g/dL 32-36 Automated erythrocyte distribution width ratio 14. 2 % 10.0- 14.5 Automated blood platelet count (count/volume) 200 10*3/uL 130-400 Automated blood platelet mean volume measurement 8.9 [foz_us] 7.4-10.4 Automated blood neutrophils/100 leukocytes 84 % 42-75 Automated blood lymphocytes/100 leukocytes 7 % 12-44 Blood monocytes/100 leukocytes 8 % 0-12 Automated blood eosinophils/100 leukocytes 0 % 0-10 Automated blood basophils/100 leukocytes 0 % 0-10 Blood neutrophils automated count (number/volume) 4.9 10*3 1.8-7.8 Blood lymphocytes automated count (number/volume) 0.4 10*3 1.0-4.0 Blood monocytes automated count (number/volume) 0. 5 10*3 0.0-1.0 Automated eosinophil count 0.0 10*3/uL 0 .0-0.3 Automated blood basophil count (count/volume) 0.0 10*3/uL 0.0-0.1 Blood lactic acid measurement (moles/vol ume) - 01/28/18 21:25 Blood lactic acid measurement (moles/volume) 0.94 mmol/L 0.50-2.00 Whole blood basic metabolic panel - 12/31 04/17 21:25 Serum or plasma sodium measurement (moles/volume) 134 mmol/L 135-145 Serum or plasma potassium measurement (moles/volume) 4.2 mmol/L 3.6-5.0 Serum or plasma chloride measurement (moles/volume) 95 mmol/L 98-107 Carbon dioxide 27 mmol/L 21-32 Serum or plasma anion gap determination (moles/volume) 12 mmol/L 5-14 Serum or plasma urea nitrogen measurement (mass/volume ) 7 mg/dL 7-18 Serum or plasma creatinine measurement (mass/volume) 0.70 mg/dL 0.60-1.30 Serum or plasma urea nitrogen/creatinine mass ratio 10 NRG Serum or plasma creatinine measurement w ith calculation of estimated glomerular filtration rate > NRG Serum or plasma glucose measurement (mass/volume) 120 mg/dL 70-105 Serum or plasma calcium measurement (mass/volume) 9.5 mg/dL 8.5-10.1 Blood manual differential performed dete ction - 01/28/18 21:25 Blood monocytes/100 leukocytes 6 % NRG Manual blood segmented neutrophils/100 leukocytes 75 % NRG Blood band neutrophils/100 leukocytes 0 % NRG Manual blood lymphocytes/100 leukocytes 18 % NRG Manual eosinophils/100 leukocytes in nose 0 % NRG Manual blood basophils/100 leukocytes 1 % NRG Blood anisocytosis detection by light microscopy S LIGHT NRG Blood hypochromia detection by light microscopy SL IGHT NRG Bacterial blood culture - 01/28/18 21:25 Bacterial blood culture NG NRG Complete urinalysis with reflex to cultu re - 01/29/18 03:42 Urine color determination YELLOW NRG Urine clarity determination CLEAR NR G Urine pH measurement by test strip 6 5-9 Specific gravity of urine by test strip 1.010 1.016-1.022 Urine protein assay by test strip, semi-quantitative NEGATIVE NEGATIVE Urine glucose detection by automated test strip NE GATIVE NEGATIVE Erythrocytes detection in urine sediment by light micr oscopy NEGATIVE NEGATIVE Urine ketones detection by automated test strip NE GATIVE NEGATIVE Urine nitrite detection by test strip NEGATIVE NEGATIVE Urine total bilirubin detection by test strip NEGA TIVE NEGATIVE Urine urobilinogen measurement by automated test strip (mass/volume) NORMAL NORMAL Urine leukocyte esterase detection by dipstick NEG ATIVE NEGATIVE Automated urine sediment erythrocyte cou nt by microscopy (number/high power field) NONE NRG Automated urine sediment leukocyte count by microscopy (number/high power field) NONE NRG Bacteria detection in urine sediment by light microsco py TRACE NRG Squamous epithelial cells detection in u rine sediment by light microscopy RARE NRG Crystals detection in urine sediment by light microsco py NONE NRG Casts detection in urine sediment by light microscopy NONE NRG Mucus detection in urine sediment by light microscopy NEGATIVE NRG Complete urinalysis with reflex to culture NO NRG Complete blood count (CBC) with automate d white blood cell (WBC) differential - 01/29/18 03:50 Blood leukocytes automated count (number/volume) 4.7 10*3/uL 4.3-11.0 Blood erythrocytes automated count (number/volume) 3.23 10*6/uL 4.35-5.85 Venous blood hemoglobin measurement (mass/volume) 10.2 g/dL 13.3-17.7 Blood hematocrit (volume fraction) 30 % 40-54 Automated erythrocyte mean corpuscular volume 93 [ foz_us] 80-99 Automated erythrocyte mean corpuscular h emoglobin (mass per erythrocyte) 32 pg 25-34 Automated erythrocyte mean corpuscular h emoglobin concentration measurement (mass/volume) 34 g/dL 32-36 Automated erythrocyte distribution width ratio 14. 5 % 10.0- 14.5 Automated blood platelet count (count/volume) 206 10*3/uL 130-400 Automated blood platelet mean volume measurement 8.5 [foz_us] 7.4-10.4 Automated blood neutrophils/100 leukocytes 83 % 42-75 Automated blood lymphocytes/100 leukocytes 10 % 12-44 Blood monocytes/100 leukocytes 7 % 0-12 Automated blood eosinophils/100 leukocytes 0 % 0-10 Automated blood basophils/100 leukocytes 0 % 0-10 Blood neutrophils automated count (number/volume) 3.9 10*3 1.8-7.8 Blood lymphocytes automated count (number/volume) 0.5 10*3 1.0-4.0 Blood monocytes automated count (number/volume) 0. 3 10*3 0.0-1.0 Automated eosinophil count 0.0 10*3/uL 0 .0-0.3 Automated blood basophil count (count/volume) 0.0 10*3/uL 0.0-0.1 Whole blood basic metabolic panel - 04/17 03:50 Serum or plasma sodium measurement (moles/volume) 130 mmol/L 135-145 Serum or plasma potassium measurement (moles/volume) 4.4 mmol/L 3.6-5.0 Serum or plasma chloride measurement (moles/volume) 93 mmol/L 98-107 Carbon dioxide 25 mmol/L 21-32 Serum or plasma anion gap determination (moles/volume) 12 mmol/L 5-14 Serum or plasma urea nitrogen measurement (mass/volume ) 9 mg/dL 7-18 Serum or plasma creatinine measurement (mass/volume) 0.74 mg/dL 0.60-1.30 Serum or plasma urea nitrogen/creatinine mass ratio 12 NRG Serum or plasma creatinine measurement w ith calculation of estimated glomerular filtration rate > NRG Serum or plasma glucose measurement (mass/volume) 113 mg/dL 70-105 Serum or plasma calcium measurement (mass/volume) 9.4 mg/dL 8.5-10.1 Serum or plasma phosphate measurement (m ass/volume) - 01/29/18 03:50 Serum or plasma phosphate measurement (mass/volume) 3.1 mg/dL 2.3-4.7 Magnesium - 01/29/18 03:50 Magnesium 1.5 mg/dL 1.8-2.4 Influenza virus A and B antigen detectio n - 01/29/18 07:06 FLU RESULT NEGATIVE FOR INFLUENZA A AND B ANTIGENS BY IA NRG Serum or plasma lithium measurement (mol es/volume) - 01/29/18 12:30 BNP level 318.8 pg/mL <100.0 Complete blood count (CBC) with automate d white blood cell (WBC) differential - 01/30/18 04:05 Blood leukocytes automated count (number/volume) 6.5 10*3/uL 4.3-11.0 Blood erythrocytes automated count (number/volume) 3.04 10*6/uL 4.35-5.85 Venous blood hemoglobin measurement (mass/volume) 9.4 g/dL 13.3-17.7 Blood hematocrit (volume fraction) 28 % 40-54 Automated erythrocyte mean corpuscular volume 93 [ foz_us] 80-99 Automated erythrocyte mean corpuscular h emoglobin (mass per erythrocyte) 31 pg 25-34 Automated erythrocyte mean corpuscular h emoglobin concentration measurement (mass/volume) 33 g/dL 32-36 Automated erythrocyte distribution width ratio 14. 1 % 10.0- 14.5 Automated blood platelet count (count/volume) 189 10*3/uL 130-400 Automated blood platelet mean volume measurement 8.9 [foz_us] 7.4-10.4 Automated blood neutrophils/100 leukocytes 89 % 42-75 Automated blood lymphocytes/100 leukocytes 5 % 12-44 Blood monocytes/100 leukocytes 6 % 0-12 Automated blood eosinophils/100 leukocytes 0 % 0-10 Automated blood basophils/100 leukocytes 0 % 0-10 Blood neutrophils automated count (number/volume) 5.8 10*3 1.8-7.8 Blood lymphocytes automated count (number/volume) 0.3 10*3 1.0-4.0 Blood monocytes automated count (number/volume) 0. 4 10*3 0.0-1.0 Automated eosinophil count 0.0 10*3/uL 0 .0-0.3 Automated blood basophil count (count/volume) 0.0 10*3/uL 0.0-0.1 Whole blood basic metabolic panel - 11/0 05/18 04:05 Serum or plasma sodium measurement (moles/volume) 129 mmol/L 135-145 Serum or plasma potassium measurement (moles/volume) 4.4 mmol/L 3.6-5.0 Serum or plasma chloride measurement (moles/volume) 94 mmol/L 98-107 Carbon dioxide 21 mmol/L 21-32 Serum or plasma anion gap determination (moles/volume) 14 mmol/L 5-14 Serum or plasma urea nitrogen measurement (mass/volume ) 12 mg/dL 7-18 Serum or plasma creatinine measurement (mass/volume) 0.69 mg/dL 0.60-1.30 Serum or plasma urea nitrogen/creatinine mass ratio 17 NRG Serum or plasma creatinine measurement w ith calculation of estimated glomerular filtration rate > NRG Serum or plasma glucose measurement (mass/volume) 121 mg/dL 70-105 Serum or plasma calcium measurement (mass/volume) 9.3 mg/dL 8.5-10.1 Serum or plasma phosphate measurement (m ass/volume) - 01/30/18 04:05 Serum or plasma phosphate measurement (mass/volume) 2.4 mg/dL 2.3-4.7 Magnesium - 01/30/18 04:05 Magnesium 2.1 mg/dL 1.8-2.4 Vancomycin trough - 01/30/18 06:51 Vancomycin trough 8.0 ug/mL 10.0-20.0 Complete blood count (CBC) with automate d white blood cell (WBC) differential - 01/31/18 06:27 Blood leukocytes automated count (number/volume) 4.8 10*3/uL 4.3-11.0 Blood erythrocytes automated count (number/volume) 2.81 10*6/uL 4.35-5.85 Venous blood hemoglobin measurement (mass/volume) 8.8 g/dL 13.3-17.7 Blood hematocrit (volume fraction) 26 % 40-54 Automated erythrocyte mean corpuscular volume 93 [ foz_us] 80-99 Automated erythrocyte mean corpuscular h emoglobin (mass per erythrocyte) 31 pg 25-34 Automated erythrocyte mean corpuscular h emoglobin concentration measurement (mass/volume) 34 g/dL 32-36 Automated erythrocyte distribution width ratio 14. 2 % 10.0- 14.5 Automated blood platelet count (count/volume) 207 10*3/uL 130-400 Automated blood platelet mean volume measurement 8.3 [foz_us] 7.4-10.4 Automated blood neutrophils/100 leukocytes 76 % 42-75 Automated blood lymphocytes/100 leukocytes 11 % 12-44 Blood monocytes/100 leukocytes 13 % 0-12 Automated blood eosinophils/100 leukocytes 0 % 0-10 Automated blood basophils/100 leukocytes 0 % 0-10 Blood neutrophils automated count (number/volume) 3.7 10*3 1.8-7.8 Blood lymphocytes automated count (number/volume) 0.5 10*3 1.0-4.0 Blood monocytes automated count (number/volume) 0. 6 10*3 0.0-1.0 Automated eosinophil count 0.0 10*3/uL 0 .0-0.3 Automated blood basophil count (count/volume) 0.0 10*3/uL 0.0-0.1 Comprehensive metabolic panel - 01/31/18 06:27 Serum or plasma sodium measurement (moles/volume) 133 mmol/L 135-145 Serum or plasma potassium measurement (moles/volume) 4.1 mmol/L 3.6-5.0 Serum or plasma chloride measurement (moles/volume) 97 mmol/L 98-107 Carbon dioxide 26 mmol/L 21-32 Serum or plasma anion gap determination (moles/volume) 10 mmol/L 5-14 Serum or plasma urea nitrogen measurement (mass/volume ) 9 mg/dL 7-18 Serum or plasma creatinine measurement (mass/volume) 0.70 mg/dL 0.60-1.30 Serum or plasma urea nitrogen/creatinine mass ratio 13 NRG Serum or plasma creatinine measurement w ith calculation of estimated glomerular filtration rate > NRG Serum or plasma glucose measurement (mass/volume) 127 mg/dL 70-105 Serum or plasma calcium measurement (mass/volume) 9.4 mg/dL 8.5-10.1 Serum or plasma total bilirubin measurement (mass/volu me) 0.2 mg/dL 0.1-1.0 Serum or plasma alkaline phosphatase mick surement (enzymatic activity/volume) 78 U/L 40-136 Serum or plasma aspartate aminotransfera se measurement (enzymatic activity/volume) 10 U/L 5-34 Serum or plasma alanine aminotransferase measurement (enzymatic activity/volume) < U/L 0-55 Serum or plasma protein measurement (mass/volume) 6.9 g/dL 6.4-8.2 Serum or plasma albumin measurement (mass/volume) 3.7 g/dL 3.2-4.5 CALCIUM CORRECTED 9.6 mg/dL 8.5-10.1 Vancomycin trough - 01/31/18 06:27 Vancomycin trough 12.4 ug/mL 10.0-20.0 Vancomycin trough - 02/02/18 06:30 Vancomycin trough 15.3 ug/mL 10.0-20.0 Complete blood count (CBC) with automate d white blood cell (WBC) differential - 02/02/18 08:55 Blood leukocytes automated count (number/volume) 8.3 10*3/uL 4.3-11.0 Blood erythrocytes automated count (number/volume) 2.96 10*6/uL 4.35-5.85 Venous blood hemoglobin measurement (mass/volume) 9.1 g/dL 13.3-17.7 Blood hematocrit (volume fraction) 28 % 40-54 Automated erythrocyte mean corpuscular volume 95 [ foz_us] 80-99 Automated erythrocyte mean corpuscular h emoglobin (mass per erythrocyte) 31 pg 25-34 Automated erythrocyte mean corpuscular h emoglobin concentration measurement (mass/volume) 33 g/dL 32-36 Automated erythrocyte distribution width ratio 14. 5 % 10.0- 14.5 Automated blood platelet count (count/volume) 254 10*3/uL 130-400 Automated blood platelet mean volume measurement 8.5 [foz_us] 7.4-10.4 Automated blood neutrophils/100 leukocytes 86 % 42-75 Automated blood lymphocytes/100 leukocytes 6 % 12-44 Blood monocytes/100 leukocytes 8 % 0-12 Automated blood eosinophils/100 leukocytes 0 % 0-10 Automated blood basophils/100 leukocytes 0 % 0-10 Blood neutrophils automated count (number/volume) 7.1 10*3 1.8-7.8 Blood lymphocytes automated count (number/volume) 0.5 10*3 1.0-4.0 Blood monocytes automated count (number/volume) 0. 7 10*3 0.0-1.0 Automated eosinophil count 0.0 10*3/uL 0 .0-0.3 Automated blood basophil count (count/volume) 0.0 10*3/uL 0.0-0.1 Whole blood basic metabolic panel - 08/15 08:55 Serum or plasma sodium measurement (moles/volume) 137 mmol/L 135-145 Serum or plasma potassium measurement (moles/volume) 3.8 mmol/L 3.6-5.0 Serum or plasma chloride measurement (moles/volume) 99 mmol/L 98-107 Carbon dioxide 28 mmol/L 21-32 Serum or plasma anion gap determination (moles/volume) 10 mmol/L 5-14 Serum or plasma urea nitrogen measurement (mass/volume ) 8 mg/dL 7-18 Serum or plasma creatinine measurement (mass/volume) 0.71 mg/dL 0.60-1.30 Serum or plasma urea nitrogen/creatinine mass ratio 11 NRG Serum or plasma creatinine measurement w ith calculation of estimated glomerular filtration rate > NRG Serum or plasma glucose measurement (mass/volume) 162 mg/dL 70-105 Serum or plasma calcium measurement (mass/volume) 8.9 mg/dL 8.5-10.1 Capillary blood glucose measurement by g lucometer (mass/volume) - 02/02/18 23:29 Capillary blood glucose measurement by glucometer (mas s/volume) 130 mg/dL 70-110 Automated blood complete blood count (he mogram) panel - 02/03/18 06:59 Blood leukocytes automated count (number/volume) 6.2 10*3/uL 4.3-11.0 Blood erythrocytes automated count (number/volume) 2.99 10*6/uL 4.35-5.85 Venous blood hemoglobin measurement (mass/volume) 9.2 g/dL 13.3-17.7 Blood hematocrit (volume fraction) 29 % 40-54 Automated erythrocyte mean corpuscular volume 95 [ foz_us] 80-99 Automated erythrocyte mean corpuscular h emoglobin (mass per erythrocyte) 31 pg 25-34 Automated erythrocyte mean corpuscular h emoglobin concentration measurement (mass/volume) 32 g/dL 32-36 Automated erythrocyte distribution width ratio 14. 5 % 10.0- 14.5 Automated blood platelet count (count/volume) 239 10*3/uL 130-400 Automated blood platelet mean volume measurement 8.5 [foz_us] 7.4-10.4 Whole blood basic metabolic panel - 09/15 06:59 Serum or plasma sodium measurement (moles/volume) 139 mmol/L 135-145 Serum or plasma potassium measurement (moles/volume) 3.5 mmol/L 3.6-5.0 Serum or plasma chloride measurement (moles/volume) 98 mmol/L 98-107 Carbon dioxide 29 mmol/L 21-32 Serum or plasma anion gap determination (moles/volume) 12 mmol/L 5-14 Serum or plasma urea nitrogen measurement (mass/volume ) 8 mg/dL 7-18 Serum or plasma creatinine measurement (mass/volume) 0.66 mg/dL 0.60-1.30 Serum or plasma urea nitrogen/creatinine mass ratio 12 NRG Serum or plasma creatinine measurement w ith calculation of estimated glomerular filtration rate > NRG Serum or plasma glucose measurement (mass/volume) 119 mg/dL 70-105 Serum or plasma calcium measurement (mass/volume) 8.9 mg/dL 8.5-10.1 Complete blood count (CBC) with automate d white blood cell (WBC) differential - 03/03/18 13:00 Blood leukocytes automated count (number/volume) 2.9 10*3/uL 4.3-11.0 Blood erythrocytes automated count (number/volume) 3.46 10*6/uL 4.35-5.85 Venous blood hemoglobin measurement (mass/volume) 10.5 g/dL 13.3-17.7 Blood hematocrit (volume fraction) 32 % 40-54 Automated erythrocyte mean corpuscular volume 93 [ foz_us] 80-99 Automated erythrocyte mean corpuscular h emoglobin (mass per erythrocyte) 30 pg 25-34 Automated erythrocyte mean corpuscular h emoglobin concentration measurement (mass/volume) 33 g/dL 32-36 Automated erythrocyte distribution width ratio 14. 5 % 10.0- 14.5 Automated blood platelet count (count/volume) 188 10*3/uL 130-400 Automated blood platelet mean volume measurement 8.6 [foz_us] 7.4-10.4 Automated blood neutrophils/100 leukocytes 63 % 42-75 Automated blood lymphocytes/100 leukocytes 22 % 12-44 Blood monocytes/100 leukocytes 14 % 0-12 Automated blood eosinophils/100 leukocytes 0 % 0-10 Automated blood basophils/100 leukocytes 1 % 0-10 Blood neutrophils automated count (number/volume) 1.8 10*3 1.8-7.8 Blood lymphocytes automated count (number/volume) 0.6 10*3 1.0-4.0 Blood monocytes automated count (number/volume) 0. 4 10*3 0.0-1.0 Automated eosinophil count 0.0 10*3/uL 0 .0-0.3 Automated blood basophil count (count/volume) 0.0 10*3/uL 0.0-0.1 Whole blood basic metabolic panel - 07/16 13:00 Serum or plasma sodium measurement (moles/volume) 128 mmol/L 135-145 Serum or plasma potassium measurement (moles/volume) 5.4 mmol/L 3.6-5.0 Serum or plasma chloride measurement (moles/volume) 94 mmol/L 98-107 Carbon dioxide 23 mmol/L 21-32 Serum or plasma anion gap determination (moles/volume) 11 mmol/L 5-14 Serum or plasma urea nitrogen measurement (mass/volume ) 17 mg/dL 7-18 Serum or plasma creatinine measurement (mass/volume) 0.79 mg/dL 0.60-1.30 Serum or plasma urea nitrogen/creatinine mass ratio 22 NRG Serum or plasma creatinine measurement w ith calculation of estimated glomerular filtration rate > NRG Serum or plasma glucose measurement (mass/volume) 116 mg/dL 70-105 Serum or plasma calcium measurement (mass/volume) 8.8 mg/dL 8.5-10.1 Complete blood count (CBC) with automate d white blood cell (WBC) differential - 03/04/18 13:00 Blood leukocytes automated count (number/volume) 2.9 10*3/uL 4.3-11.0 Blood erythrocytes automated count (number/volume) 3.46 10*6/uL 4.35-5.85 Venous blood hemoglobin measurement (mass/volume) 10.5 g/dL 13.3-17.7 Blood hematocrit (volume fraction) 32 % 40-54 Automated erythrocyte mean corpuscular volume 93 [ foz_us] 80-99 Automated erythrocyte mean corpuscular h emoglobin (mass per erythrocyte) 30 pg 25-34 Automated erythrocyte mean corpuscular h emoglobin concentration measurement (mass/volume) 33 g/dL 32-36 Automated erythrocyte distribution width ratio 14. 5 % 10.0- 14.5 Automated blood platelet count (count/volume) 188 10*3/uL 130-400 Automated blood platelet mean volume measurement 8.6 [foz_us] 7.4-10.4 Automated blood neutrophils/100 leukocytes 63 % 42-75 Automated blood lymphocytes/100 leukocytes 22 % 12-44 Blood monocytes/100 leukocytes 14 % 0-12 Automated blood eosinophils/100 leukocytes 0 % 0-10 Automated blood basophils/100 leukocytes 1 % 0-10 Blood neutrophils automated count (number/volume) 1.8 10*3 1.8-7.8 Blood lymphocytes automated count (number/volume) 0.6 10*3 1.0-4.0 Blood monocytes automated count (number/volume) 0. 4 10*3 0.0-1.0 Automated eosinophil count 0.0 10*3/uL 0 .0-0.3 Automated blood basophil count (count/volume) 0.0 10*3/uL 0.0-0.1 Whole blood basic metabolic panel - 08/15 13:00 Serum or plasma sodium measurement (moles/volume) 128 mmol/L 135-145 Serum or plasma potassium measurement (moles/volume) 5.4 mmol/L 3.6-5.0 Serum or plasma chloride measurement (moles/volume) 94 mmol/L 98-107 Carbon dioxide 23 mmol/L 21-32 Serum or plasma anion gap determination (moles/volume) 11 mmol/L 5-14 Serum or plasma urea nitrogen measurement (mass/volume ) 17 mg/dL 7-18 Serum or plasma creatinine measurement (mass/volume) 0.79 mg/dL 0.60-1.30 Serum or plasma urea nitrogen/creatinine mass ratio 22 NRG Serum or plasma creatinine measurement w ith calculation of estimated glomerular filtration rate > NRG Serum or plasma glucose measurement (mass/volume) 116 mg/dL 70-105 Serum or plasma calcium measurement (mass/volume) 8.8 mg/dL 8.5-10.1 Serum or plasma carbamazepine measuremen t (mass/volume) - 03/04/18 13:00 Serum or plasma carbamazepine measurement (mass/volume ) 5.0 ug/mL 4.0-12.0 DILANTIN (PHENYTOIN) - 03/04/18 13:00 DILANTIN PHEN 17.6 % 10.0-20.0 Complete blood count (CBC) with automate d white blood cell (WBC) differential - 03/09/18 11:20 Blood leukocytes automated count (number/volume) 3.8 10*3/uL 4.3-11.0 Blood erythrocytes automated count (number/volume) 3.33 10*6/uL 4.35-5.85 Venous blood hemoglobin measurement (mass/volume) 10.2 g/dL 13.3-17.7 Blood hematocrit (volume fraction) 30 % 40-54 Automated erythrocyte mean corpuscular volume 91 [ foz_us] 80-99 Automated erythrocyte mean corpuscular h emoglobin (mass per erythrocyte) 31 pg 25-34 Automated erythrocyte mean corpuscular h emoglobin concentration measurement (mass/volume) 34 g/dL 32-36 Automated erythrocyte distribution width ratio 14. 6 % 10.0- 14.5 Automated blood platelet count (count/volume) 191 10*3/uL 130-400 Automated blood platelet mean volume measurement 8.5 [foz_us] 7.4-10.4 Automated blood neutrophils/100 leukocytes 74 % 42-75 Automated blood lymphocytes/100 leukocytes 17 % 12-44 Blood monocytes/100 leukocytes 8 % 0-12 Automated blood eosinophils/100 leukocytes 0 % 0-10 Automated blood basophils/100 leukocytes 1 % 0-10 Blood neutrophils automated count (number/volume) 2.8 10*3 1.8-7.8 Blood lymphocytes automated count (number/volume) 0.6 10*3 1.0-4.0 Blood monocytes automated count (number/volume) 0. 3 10*3 0.0-1.0 Automated eosinophil count 0.0 10*3/uL 0 .0-0.3 Automated blood basophil count (count/volume) 0.0 10*3/uL 0.0-0.1 Comprehensive metabolic panel - 03/09/18 11:20 Serum or plasma sodium measurement (moles/volume) 129 mmol/L 135-145 Serum or plasma potassium measurement (moles/volume) 4.7 mmol/L 3.6-5.0 Serum or plasma chloride measurement (moles/volume) 94 mmol/L 98-107 Carbon dioxide 25 mmol/L 21-32 Serum or plasma anion gap determination (moles/volume) 10 mmol/L 5-14 Serum or plasma urea nitrogen measurement (mass/volume ) 13 mg/dL 7-18 Serum or plasma creatinine measurement (mass/volume) 0.76 mg/dL 0.60-1.30 Serum or plasma urea nitrogen/creatinine mass ratio 17 NRG Serum or plasma creatinine measurement w ith calculation of estimated glomerular filtration rate > NRG Serum or plasma glucose measurement (mass/volume) 115 mg/dL 70-105 Serum or plasma calcium measurement (mass/volume) 8.8 mg/dL 8.5-10.1 Serum or plasma total bilirubin measurement (mass/volu me) 0.3 mg/dL 0.1-1.0 Serum or plasma alkaline phosphatase mick surement (enzymatic activity/volume) 147 U/L 40-136 Serum or plasma aspartate aminotransfera se measurement (enzymatic activity/volume) 12 U/L 5-34 Serum or plasma alanine aminotransferase measurement (enzymatic activity/volume) 8 U/L 0-55 Serum or plasma protein measurement (mass/volume) 7.1 g/dL 6.4-8.2 Serum or plasma albumin measurement (mass/volume) 4.1 g/dL 3.2-4.5 CALCIUM CORRECTED 8.7 mg/dL 8.5-10.1 Serum or plasma troponin i.cardiac measu rement (mass/volume) - 03/09/18 11:20 Serum or plasma troponin i.cardiac measurement (mass/v olume) < ng/mL <0.30 Complete urinalysis with reflex to cultu re - 03/09/18 12:52 Urine color determination YELLOW NRG Urine clarity determination CLEAR NR G Urine pH measurement by test strip 7 5-9 Specific gravity of urine by test strip 1.010 1.016-1.022 Urine protein assay by test strip, semi-quantitative NEGATIVE NEGATIVE Urine glucose detection by automated test strip NE GATIVE NEGATIVE Erythrocytes detection in urine sediment by light micr oscopy NEGATIVE NEGATIVE Urine ketones detection by automated test strip NE GATIVE NEGATIVE Urine nitrite detection by test strip NEGATIVE NEGATIVE Urine total bilirubin detection by test strip NEGA TIVE NEGATIVE Urine urobilinogen measurement by automated test strip (mass/volume) NORMAL NORMAL Urine leukocyte esterase detection by dipstick NEG ATIVE NEGATIVE Automated urine sediment erythrocyte cou nt by microscopy (number/high power field) NONE NRG Automated urine sediment leukocyte count by microscopy (number/high power field) NONE NRG Bacteria detection in urine sediment by light microsco py NEGATIVE NRG Squamous epithelial cells detection in u rine sediment by light microscopy NONE NRG Crystals detection in urine sediment by light microsco py NONE NRG Casts detection in urine sediment by light microscopy NONE NRG Mucus detection in urine sediment by light microscopy NEGATIVE NRG Complete urinalysis with reflex to culture NO NRG Serum or plasma carbamazepine measuremen t (mass/volume) - 03/11/18 09:35 Serum or plasma carbamazepine measurement (mass/volume ) 5.0 ug/mL 4.0-12.0 DILANTIN (PHENYTOIN) - 03/11/18 09:35 DILANTIN PHEN 16.0 % 10.0-20.0 Complete blood count (CBC) with automate d white blood cell (WBC) differential - 03/16/18 20:53 Blood leukocytes automated count (number/volume) 3.4 10*3/uL 4.3-11.0 Blood erythrocytes automated count (number/volume) 3.57 10*6/uL 4.35-5.85 Venous blood hemoglobin measurement (mass/volume) 11.0 g/dL 13.3-17.7 Blood hematocrit (volume fraction) 32 % 40-54 Automated erythrocyte mean corpuscular volume 91 [ foz_us] 80-99 Automated erythrocyte mean corpuscular h emoglobin (mass per erythrocyte) 31 pg 25-34 Automated erythrocyte mean corpuscular h emoglobin concentration measurement (mass/volume) 34 g/dL 32-36 Automated erythrocyte distribution width ratio 14. 1 % 10.0- 14.5 Automated blood platelet count (count/volume) 174 10*3/uL 130-400 Automated blood platelet mean volume measurement 8.3 [foz_us] 7.4-10.4 Automated blood neutrophils/100 leukocytes 51 % 42-75 Automated blood lymphocytes/100 leukocytes 25 % 12-44 Blood monocytes/100 leukocytes 22 % 0-12 Automated blood eosinophils/100 leukocytes 0 % 0-10 Automated blood basophils/100 leukocytes 1 % 0-10 Blood neutrophils automated count (number/volume) 1.8 10*3 1.8-7.8 Blood lymphocytes automated count (number/volume) 0.9 10*3 1.0-4.0 Blood monocytes automated count (number/volume) 0. 8 10*3 0.0-1.0 Automated eosinophil count 0.0 10*3/uL 0 .0-0.3 Automated blood basophil count (count/volume) 0.0 10*3/uL 0.0-0.1 Magnesium - 03/16/18 20:53 Magnesium 1.7 mg/dL 1.8-2.4 Comprehensive metabolic panel - 03/16/18 20:53 Serum or plasma sodium measurement (moles/volume) 128 mmol/L 135-145 Serum or plasma potassium measurement (moles/volume) 4.7 mmol/L 3.6-5.0 Serum or plasma chloride measurement (moles/volume) 93 mmol/L 98-107 Carbon dioxide 23 mmol/L 21-32 Serum or plasma anion gap determination (moles/volume) 12 mmol/L 5-14 Serum or plasma urea nitrogen measurement (mass/volume ) 11 mg/dL 7-18 Serum or plasma creatinine measurement (mass/volume) 0.79 mg/dL 0.60-1.30 Serum or plasma urea nitrogen/creatinine mass ratio 14 NRG Serum or plasma creatinine measurement w ith calculation of estimated glomerular filtration rate > NRG Serum or plasma glucose measurement (mass/volume) 111 mg/dL 70-105 Serum or plasma calcium measurement (mass/volume) 9.2 mg/dL 8.5-10.1 Serum or plasma total bilirubin measurement (mass/volu me) 0.3 mg/dL 0.1-1.0 Serum or plasma alkaline phosphatase mick surement (enzymatic activity/volume) 152 U/L 40-136 Serum or plasma aspartate aminotransfera se measurement (enzymatic activity/volume) 13 U/L 5-34 Serum or plasma alanine aminotransferase measurement (enzymatic activity/volume) 9 U/L 0-55 Serum or plasma protein measurement (mass/volume) 7.4 g/dL 6.4-8.2 Serum or plasma albumin measurement (mass/volume) 4.2 g/dL 3.2-4.5 CALCIUM CORRECTED 9.0 mg/dL 8.5-10.1 Serum or plasma carbamazepine measuremen t (mass/volume) - 03/16/18 20:53 Serum or plasma carbamazepine measurement (mass/volume ) 7.4 ug/mL 4.0-12.0 Blood manual differential performed dete ction - 03/16/18 20:53 Blood monocytes/100 leukocytes 16 % NRG Manual blood segmented neutrophils/100 leukocytes 54 % NRG Blood band neutrophils/100 leukocytes 1 % NRG Manual blood lymphocytes/100 leukocytes 29 % NRG Manual eosinophils/100 leukocytes in nose 0 % NRG Manual blood basophils/100 leukocytes 0 % NRG Blood erythrocyte morphology finding identification NORMAL NRG LAMOTRIGINE LEVEL - 03/16/18 20:53 LAMOTRIGINE 2.2 % 2.5-15.0 DILANTIN (PHENYTOIN) - 03/16/18 20:53 DILANTIN PHEN 20.3 % 10.0-20.0 Complete urinalysis with reflex to cultu re - 03/16/18 21:46 Urine color determination YELLOW NRG Urine clarity determination CLEAR NR G Urine pH measurement by test strip 7 5-9 Specific gravity of urine by test strip 1.010 1.016-1.022 Urine protein assay by test strip, semi-quantitative 1+ NEGATIVE Urine glucose detection by automated test strip NE GATIVE NEGATIVE Erythrocytes detection in urine sediment by light micr oscopy NEGATIVE NEGATIVE Urine ketones detection by automated test strip NE GATIVE NEGATIVE Urine nitrite detection by test strip NEGATIVE NEGATIVE Urine total bilirubin detection by test strip NEGA TIVE NEGATIVE Urine urobilinogen measurement by automated test strip (mass/volume) NORMAL NORMAL Urine leukocyte esterase detection by dipstick NEG ATIVE NEGATIVE Automated urine sediment erythrocyte cou nt by microscopy (number/high power field) NONE NRG Automated urine sediment leukocyte count by microscopy (number/high power field) RARE NRG Bacteria detection in urine sediment by light microsco py NEGATIVE NRG Squamous epithelial cells detection in u rine sediment by light microscopy 0-2 NRG Crystals detection in urine sediment by light microsco py NONE NRG Casts detection in urine sediment by light microscopy NONE NRG Mucus detection in urine sediment by light microscopy NEGATIVE NRG Complete urinalysis with reflex to culture NO NRG Whole blood basic metabolic panel - 02/28 11/15 05:10 Serum or plasma sodium measurement (moles/volume) 132 mmol/L 135-145 Serum or plasma potassium measurement (moles/volume) 4.7 mmol/L 3.6-5.0 Serum or plasma chloride measurement (moles/volume) 100 mmol/L 98-107 Carbon dioxide 24 mmol/L 21-32 Serum or plasma anion gap determination (moles/volume) 8 mmol/L 5-14 Serum or plasma urea nitrogen measurement (mass/volume ) 8 mg/dL 7-18 Serum or plasma creatinine measurement (mass/volume) 0.74 mg/dL 0.60-1.30 Serum or plasma urea nitrogen/creatinine mass ratio 11 NRG Serum or plasma creatinine measurement w ith calculation of estimated glomerular filtration rate > NRG Serum or plasma glucose measurement (mass/volume) 110 mg/dL 70-105 Serum or plasma calcium measurement (mass/volume) 9.1 mg/dL 8.5-10.1 THYROID STIMULATING HORMONE - 03/17/18 0 5:10 THYROID STIMULATING HORMONE 0.44 u[iU]/mL 0.35-4.94 Serum or plasma thyroxine (T4) free meng urement (mass/volume) - 03/17/18 05:10 Serum or plasma thyroxine (T4) free measurement (mass/ volume) 0.77 ng/dL 0.70-1.48 Automated blood complete blood count (he mogram) panel - 03/18/18 05:10 Blood leukocytes automated count (number/volume) 3.5 10*3/uL 4.3-11.0 Blood erythrocytes automated count (number/volume) 3.12 10*6/uL 4.35-5.85 Venous blood hemoglobin measurement (mass/volume) 9.6 g/dL 13.3-17.7 Blood hematocrit (volume fraction) 29 % 40-54 Automated erythrocyte mean corpuscular volume 92 [ foz_us] 80-99 Automated erythrocyte mean corpuscular h emoglobin (mass per erythrocyte) 31 pg 25-34 Automated erythrocyte mean corpuscular h emoglobin concentration measurement (mass/volume) 33 g/dL 32-36 Automated erythrocyte distribution width ratio 14. 3 % 10.0- 14.5 Automated blood platelet count (count/volume) 152 10*3/uL 130-400 Automated blood platelet mean volume measurement 8.6 [foz_us] 7.4-10.4 Comprehensive metabolic panel - 03/18/18 05:10 Serum or plasma sodium measurement (moles/volume) 134 mmol/L 135-145 Serum or plasma potassium measurement (moles/volume) 4.1 mmol/L 3.6-5.0 Serum or plasma chloride measurement (moles/volume) 100 mmol/L 98-107 Carbon dioxide 25 mmol/L 21-32 Serum or plasma anion gap determination (moles/volume) 9 mmol/L 5-14 Serum or plasma urea nitrogen measurement (mass/volume ) 8 mg/dL 7-18 Serum or plasma creatinine measurement (mass/volume) 0.76 mg/dL 0.60-1.30 Serum or plasma urea nitrogen/creatinine mass ratio 11 NRG Serum or plasma creatinine measurement w ith calculation of estimated glomerular filtration rate > NRG Serum or plasma glucose measurement (mass/volume) 100 mg/dL 70-105 Serum or plasma calcium measurement (mass/volume) 8.7 mg/dL 8.5-10.1 Serum or plasma total bilirubin measurement (mass/volu me) 0.2 mg/dL 0.1-1.0 Serum or plasma alkaline phosphatase mick surement (enzymatic activity/volume) 149 U/L 40-136 Serum or plasma aspartate aminotransfera se measurement (enzymatic activity/volume) 11 U/L 5-34 Serum or plasma alanine aminotransferase measurement (enzymatic activity/volume) 8 U/L 0-55 Serum or plasma protein measurement (mass/volume) 6.5 g/dL 6.4-8.2 Serum or plasma albumin measurement (mass/volume) 3.8 g/dL 3.2-4.5 CALCIUM CORRECTED 8.9 mg/dL 8.5-10.1 Magnesium - 03/18/18 05:10 Magnesium 1.9 mg/dL 1.8-2.4 Complete blood count (CBC) with automate d white blood cell (WBC) differential - 03/24/18 18:50 Blood leukocytes automated count (number/volume) 4.6 10*3/uL 4.3-11.0 Blood erythrocytes automated count (number/volume) 3.42 10*6/uL 4.35-5.85 Venous blood hemoglobin measurement (mass/volume) 10.4 g/dL 13.3-17.7 Blood hematocrit (volume fraction) 31 % 40-54 Automated erythrocyte mean corpuscular volume 90 [ foz_us] 80-99 Automated erythrocyte mean corpuscular h emoglobin (mass per erythrocyte) 30 pg 25-34 Automated erythrocyte mean corpuscular h emoglobin concentration measurement (mass/volume) 34 g/dL 32-36 Automated erythrocyte distribution width ratio 14. 7 % 10.0- 14.5 Automated blood platelet count (count/volume) 175 10*3/uL 130-400 Automated blood platelet mean volume measurement 8.4 [foz_us] 7.4-10.4 Automated blood neutrophils/100 leukocytes 60 % 42-75 Automated blood lymphocytes/100 leukocytes 19 % 12-44 Blood monocytes/100 leukocytes 20 % 0-12 Automated blood eosinophils/100 leukocytes 0 % 0-10 Automated blood basophils/100 leukocytes 1 % 0-10 Blood neutrophils automated count (number/volume) 2.8 10*3 1.8-7.8 Blood lymphocytes automated count (number/volume) 0.9 10*3 1.0-4.0 Blood monocytes automated count (number/volume) 0. 9 10*3 0.0-1.0 Automated eosinophil count 0.0 10*3/uL 0 .0-0.3 Automated blood basophil count (count/volume) 0.0 10*3/uL 0.0-0.1 PT panel in platelet poor plasma by coag ulation assay - 03/24/18 18:50 Prothrombin time (PT) in platelet poor plasma by coagu lation assay 13.3 s 12.2-14.7 INR in platelet poor plasma or blood by coagulation as say 1.0 0.8-1.4 Activated partial thromboplastin time (a PTT) in platelet poor plasma bycoagulation assay - 03/24/18 18:50 Activated partial thromboplastin time (a PTT) in platelet poor plasma bycoagulation assay 42 s 24-35 Comprehensive metabolic panel - 03/24/18 18:50 Serum or plasma sodium measurement (moles/volume) 131 mmol/L 135-145 Serum or plasma potassium measurement (moles/volume) 4.2 mmol/L 3.6-5.0 Serum or plasma chloride measurement (moles/volume) 94 mmol/L 98-107 Carbon dioxide 25 mmol/L 21-32 Serum or plasma anion gap determination (moles/volume) 12 mmol/L 5-14 Serum or plasma urea nitrogen measurement (mass/volume ) 13 mg/dL 7-18 Serum or plasma creatinine measurement (mass/volume) 0.73 mg/dL 0.60-1.30 Serum or plasma urea nitrogen/creatinine mass ratio 18 NRG Serum or plasma creatinine measurement w ith calculation of estimated glomerular filtration rate > NRG Serum or plasma glucose measurement (mass/volume) 102 mg/dL 70-105 Serum or plasma calcium measurement (mass/volume) 9.2 mg/dL 8.5-10.1 Serum or plasma total bilirubin measurement (mass/volu me) 0.3 mg/dL 0.1-1.0 Serum or plasma alkaline phosphatase mick surement (enzymatic activity/volume) 156 U/L 40-136 Serum or plasma aspartate aminotransfera se measurement (enzymatic activity/volume) 10 U/L 5-34 Serum or plasma alanine aminotransferase measurement (enzymatic activity/volume) 6 U/L 0-55 Serum or plasma protein measurement (mass/volume) 7.1 g/dL 6.4-8.2 Serum or plasma albumin measurement (mass/volume) 4.0 g/dL 3.2-4.5 CALCIUM CORRECTED 9.2 mg/dL 8.5-10.1 Magnesium - 03/24/18 18:50 Magnesium 2.0 mg/dL 1.8-2.4 Serum or plasma amylase measurement (enz ymatic activity/volume) - 03/24/18 18:50 Serum or plasma amylase measurement (enzymatic activit y/volume) 28 U/L 25-125 Serum or plasma troponin i.cardiac measu rement (mass/volume) - 03/24/18 18:50 Serum or plasma troponin i.cardiac measurement (mass/v olume) < ng/mL <0.30 Lipase - 03/24/18 18:50 Lipase 6 U/L 8-78 Serum or plasma amylase measurement (enz ymatic activity/volume) - 03/24/18 18:50 Serum or plasma amylase measurement (enzymatic activit y/volume) 28 U/L 25-125 Serum or plasma thyrotropin measurement by detection limit <=0.05 miu/l (units/volume) - 03/24/18 18:50 Serum or plasma thyrotropin measurement by detection limit <=0.05 miu/l (units/volume) 0.65 u[iU]/mL 0.35-4.94 Lipase - 03/24/18 18:50 Lipase 6 U/L 8-78 Serum or plasma acetaminophen measuremen t (mass/volume) - 03/24/18 18:50 Serum or plasma acetaminophen measurement (mass/volume ) < ug/mL 10-30 Serum or plasma thyrotropin measurement by detection limit <=0.05 miu/l (units/volume) - 03/24/18 18:50 Serum or plasma thyrotropin measurement by detection limit <=0.05 miu/l (units/volume) 0.65 u[iU]/mL 0.35-4.94 Serum or plasma carbamazepine measuremen t (mass/volume) - 03/24/18 18:50 Serum or plasma carbamazepine measurement (mass/volume ) 8.9 ug/mL 4.0-12.0 Serum or plasma ethanol measurement (mas s/volume) - 03/24/18 18:50 Serum or plasma ethanol measurement (mass/volume) < mg/dL <10 Serum or plasma acetaminophen measuremen t (mass/volume) - 03/24/18 18:50 Serum or plasma acetaminophen measurement (mass/volume ) < ug/mL 10-30 Serum or plasma ethanol measurement (mas s/volume) - 03/24/18 18:50 Serum or plasma ethanol measurement (mass/volume) < mg/dL <10 DILANTIN (PHENYTOIN) - 03/24/18 18:50 DILANTIN PHEN 20.2 % 10.0-20.0 Complete urinalysis with reflex to cultu re - 03/24/18 20:32 Urine color determination YELLOW NRG Urine clarity determination CLEAR NR G Urine pH measurement by test strip 6 5-9 Specific gravity of urine by test strip 1.015 1.016-1.022 Urine protein assay by test strip, semi-quantitative NEGATIVE NEGATIVE Urine glucose detection by automated test strip NE GATIVE NEGATIVE Erythrocytes detection in urine sediment by light micr oscopy NEGATIVE NEGATIVE Urine ketones detection by automated test strip NE GATIVE NEGATIVE Urine nitrite detection by test strip NEGATIVE NEGATIVE Urine total bilirubin detection by test strip NEGA TIVE NEGATIVE Urine urobilinogen measurement by automated test strip (mass/volume) NORMAL NORMAL Urine leukocyte esterase detection by dipstick NEG ATIVE NEGATIVE Automated urine sediment erythrocyte cou nt by microscopy (number/high power field) NONE NRG Automated urine sediment leukocyte count by microscopy (number/high power field) [HPF] NRG Bacteria detection in urine sediment by light microsco py NONE NRG Squamous epithelial cells detection in u rine sediment by light microscopy 0-2 NRG Crystals detection in urine sediment by light microsco py NONE NRG Casts detection in urine sediment by light microscopy NONE NRG Mucus detection in urine sediment by light microscopy NEGATIVE NRG Complete urinalysis with reflex to culture NO NRG Urine drug screening test - 03/24/18 20: 32 Urine phencyclidine detection by screening method NEGATIVE NEGATIVE Urine benzodiazepines detection by screening method NEGATIVE NEGATIVE Urine cocaine detection NEGATIVE NEGATI VE Urine amphetamines detection by screening method N EGATIVE NEGATIVE Urine methamphetamine detection by screening method NEGATIVE NEGATIVE Urine cannabinoids detection by screening method N EGATIVE NEGATIVE Urine opiates detection by screening method NEGATI VE NEGATIVE Urine barbiturates detection POSITIVE N EGATIVE Screening urine tricyclic antidepressants detection NEGATIVE NEGATIVE Urine methadone detection by screening method NEGA TIVE NEGATIVE Urine oxycodone detection NEGATIVE NEGA TIVE Urine propoxyphene detection NEGATIVE N EGATIVE LAMOTRIGINE LEVEL - 03/24/18 21:34 LAMOTRIGINE <2.0 2.5-15.0 Complete blood count (CBC) with automate d white blood cell (WBC) differential - 03/25/18 05:50 Blood leukocytes automated count (number/volume) 3.8 10*3/uL 4.3-11.0 Blood erythrocytes automated count (number/volume) 3.18 10*6/uL 4.35-5.85 Venous blood hemoglobin measurement (mass/volume) 9.7 g/dL 13.3-17.7 Blood hematocrit (volume fraction) 29 % 40-54 Automated erythrocyte mean corpuscular volume 91 [ foz_us] 80-99 Automated erythrocyte mean corpuscular h emoglobin (mass per erythrocyte) 31 pg 25-34 Automated erythrocyte mean corpuscular h emoglobin concentration measurement (mass/volume) 34 g/dL 32-36 Automated erythrocyte distribution width ratio 14. 3 % 10.0- 14.5 Automated blood platelet count (count/volume) 150 10*3/uL 130-400 Automated blood platelet mean volume measurement 8.5 [foz_us] 7.4-10.4 Automated blood neutrophils/100 leukocytes 63 % 42-75 Automated blood lymphocytes/100 leukocytes 18 % 12-44 Blood monocytes/100 leukocytes 19 % 0-12 Automated blood eosinophils/100 leukocytes 0 % 0-10 Automated blood basophils/100 leukocytes 1 % 0-10 Blood neutrophils automated count (number/volume) 2.4 10*3 1.8-7.8 Blood lymphocytes automated count (number/volume) 0.7 10*3 1.0-4.0 Blood monocytes automated count (number/volume) 0. 7 10*3 0.0-1.0 Automated eosinophil count 0.0 10*3/uL 0 .0-0.3 Automated blood basophil count (count/volume) 0.0 10*3/uL 0.0-0.1 Comprehensive metabolic panel - 03/25/18 05:50 Serum or plasma sodium measurement (moles/volume) 132 mmol/L 135-145 Serum or plasma potassium measurement (moles/volume) 4.2 mmol/L 3.6-5.0 Serum or plasma chloride measurement (moles/volume) 99 mmol/L 98-107 Carbon dioxide 24 mmol/L 21-32 Serum or plasma anion gap determination (moles/volume) 9 mmol/L 5-14 Serum or plasma urea nitrogen measurement (mass/volume ) 7 mg/dL 7-18 Serum or plasma creatinine measurement (mass/volume) 0.68 mg/dL 0.60-1.30 Serum or plasma urea nitrogen/creatinine mass ratio 10 NRG Serum or plasma creatinine measurement w ith calculation of estimated glomerular filtration rate > NRG Serum or plasma glucose measurement (mass/volume) 102 mg/dL 70-105 Serum or plasma calcium measurement (mass/volume) 8.6 mg/dL 8.5-10.1 Serum or plasma total bilirubin measurement (mass/volu me) 0.3 mg/dL 0.1-1.0 Serum or plasma alkaline phosphatase mick surement (enzymatic activity/volume) 137 U/L 40-136 Serum or plasma aspartate aminotransfera se measurement (enzymatic activity/volume) 10 U/L 5-34 Serum or plasma alanine aminotransferase measurement (enzymatic activity/volume) 7 U/L 0-55 Serum or plasma protein measurement (mass/volume) 6.5 g/dL 6.4-8.2 Serum or plasma albumin measurement (mass/volume) 3.7 g/dL 3.2-4.5 CALCIUM CORRECTED 8.8 mg/dL 8.5-10.1 Blood manual differential performed dete ction - 03/25/18 05:50 Blood monocytes/100 leukocytes 18 % NRG Manual blood segmented neutrophils/100 leukocytes 63 % NRG Manual blood lymphocytes/100 leukocytes 17 % NRG Manual blood basophils/100 leukocytes 2 % NRG Blood erythrocyte morphology finding identification NORMAL NRG Serum or plasma carbamazepine measuremen t (mass/volume) - 03/25/18 05:50 Serum or plasma carbamazepine measurement (mass/volume ) 5.4 ug/mL 4.0-12.0 LAMOTRIGINE LEVEL - 03/25/18 08:40 LAMOTRIGINE <2.0 2.5-15.0 DILANTIN (PHENYTOIN) - 03/25/18 08:40 DILANTIN PHEN 17.1 % 10.0-20.0 Automated blood complete blood count (he mogram) panel - 03/26/18 05:35 Blood leukocytes automated count (number/volume) 3.6 10*3/uL 4.3-11.0 Blood erythrocytes automated count (number/volume) 2.97 10*6/uL 4.35-5.85 Venous blood hemoglobin measurement (mass/volume) 9.2 g/dL 13.3-17.7 Blood hematocrit (volume fraction) 27 % 40-54 Automated erythrocyte mean corpuscular volume 92 [ foz_us] 80-99 Automated erythrocyte mean corpuscular h emoglobin (mass per erythrocyte) 31 pg 25-34 Automated erythrocyte mean corpuscular h emoglobin concentration measurement (mass/volume) 34 g/dL 32-36 Automated erythrocyte distribution width ratio 14. 4 % 10.0- 14.5 Automated blood platelet count (count/volume) 148 10*3/uL 130-400 Automated blood platelet mean volume measurement 8.4 [foz_us] 7.4-10.4 Whole blood basic metabolic panel - 03/01 10/15 05:35 Serum or plasma sodium measurement (moles/volume) 132 mmol/L 135-145 Serum or plasma potassium measurement (moles/volume) 4.1 mmol/L 3.6-5.0 Serum or plasma chloride measurement (moles/volume) 99 mmol/L 98-107 Carbon dioxide 24 mmol/L 21-32 Serum or plasma anion gap determination (moles/volume) 9 mmol/L 5-14 Serum or plasma urea nitrogen measurement (mass/volume ) 6 mg/dL 7-18 Serum or plasma creatinine measurement (mass/volume) 0.71 mg/dL 0.60-1.30 Serum or plasma urea nitrogen/creatinine mass ratio 8 NRG Serum or plasma creatinine measurement w ith calculation of estimated glomerular filtration rate > NRG Serum or plasma glucose measurement (mass/volume) 98 mg/dL 70-105 Serum or plasma calcium measurement (mass/volume) 8.6 mg/dL 8.5-10.1 Complete blood count (CBC) with automate d white blood cell (WBC) differential - 04/21/18 14:40 Blood leukocytes automated count (number/volume) 12.0 10*3/uL 4.3-11.0 Blood erythrocytes automated count (number/volume) 3.61 10*6/uL 4.35-5.85 Venous blood hemoglobin measurement (mass/volume) 10.9 g/dL 13.3-17.7 Blood hematocrit (volume fraction) 32 % 40-54 Automated erythrocyte mean corpuscular volume 90 [ foz_us] 80-99 Automated erythrocyte mean corpuscular h emoglobin (mass per erythrocyte) 30 pg 25-34 Automated erythrocyte mean corpuscular h emoglobin concentration measurement (mass/volume) 34 g/dL 32-36 Automated erythrocyte distribution width ratio 14. 5 % 10.0- 14.5 Automated blood platelet count (count/volume) 271 10*3/uL 130-400 Automated blood platelet mean volume measurement 8.5 [foz_us] 7.4-10.4 Automated blood neutrophils/100 leukocytes 84 % 42-75 Automated blood lymphocytes/100 leukocytes 7 % 12-44 Blood monocytes/100 leukocytes 9 % 0-12 Automated blood eosinophils/100 leukocytes 0 % 0-10 Automated blood basophils/100 leukocytes 0 % 0-10 Blood neutrophils automated count (number/volume) 10.1 10*3 1.8-7.8 Blood lymphocytes automated count (number/volume) 0.8 10*3 1.0-4.0 Blood monocytes automated count (number/volume) 1. 1 10*3 0.0-1.0 Automated eosinophil count 0.0 10*3/uL 0 .0-0.3 Automated blood basophil count (count/volume) 0.0 10*3/uL 0.0-0.1 Blood lactic acid measurement (moles/vol ume) - 04/21/18 14:40 Blood lactic acid measurement (moles/volume) 1.04 mmol/L 0.50-2.00 Comprehensive metabolic panel - 04/21/18 14:40 Serum or plasma sodium measurement (moles/volume) 131 mmol/L 135-145 Serum or plasma potassium measurement (moles/volume) 4.5 mmol/L 3.6-5.0 Serum or plasma chloride measurement (moles/volume) 93 mmol/L 98-107 Carbon dioxide 28 mmol/L 21-32 Serum or plasma anion gap determination (moles/volume) 10 mmol/L 5-14 Serum or plasma urea nitrogen measurement (mass/volume ) 12 mg/dL 7-18 Serum or plasma creatinine measurement (mass/volume) 0.80 mg/dL 0.60-1.30 Serum or plasma urea nitrogen/creatinine mass ratio 15 NRG Serum or plasma creatinine measurement w ith calculation of estimated glomerular filtration rate > NRG Serum or plasma glucose measurement (mass/volume) 130 mg/dL 70-105 Serum or plasma calcium measurement (mass/volume) 9.1 mg/dL 8.5-10.1 Serum or plasma total bilirubin measurement (mass/volu me) 0.3 mg/dL 0.1-1.0 Serum or plasma alkaline phosphatase mick surement (enzymatic activity/volume) 160 U/L 40-136 Serum or plasma aspartate aminotransfera se measurement (enzymatic activity/volume) 12 U/L 5-34 Serum or plasma alanine aminotransferase measurement (enzymatic activity/volume) < U/L 0-55 Serum or plasma protein measurement (mass/volume) 7.7 g/dL 6.4-8.2 Serum or plasma albumin measurement (mass/volume) 4.2 g/dL 3.2-4.5 CALCIUM CORRECTED 8.9 mg/dL 8.5-10.1 Blood manual differential performed dete ction - 04/21/18 14:40 Blood monocytes/100 leukocytes 6 % NRG Manual blood segmented neutrophils/100 leukocytes 85 % NRG Blood band neutrophils/100 leukocytes 3 % NRG Manual blood lymphocytes/100 leukocytes 6 % NRG Manual eosinophils/100 leukocytes in nose 0 % NRG Manual blood basophils/100 leukocytes 0 % NRG Blood erythrocyte morphology finding identification NORMAL NRG Serum or plasma lithium measurement (mol es/volume) - 04/21/18 14:40 BNP level 67.2 pg/mL <100.0 Serum or plasma troponin i.cardiac measu rement (mass/volume) - 04/21/18 14:40 Serum or plasma troponin i.cardiac measurement (mass/v olume) < ng/mL <0.028 Bacterial blood culture - 04/21/18 14:40 FREE TEXT EXTERNAL POSSIBLE 2 COLONY TYPES PRESENT NRG QUANTITY OF GROWTH Isolated [facility] [place] Bacterial blood culture [id number] [facility] Influenza virus A and B antigen detectio n - 04/21/18 15:02 FLU RESULT NEGATIVE FOR INFLUENZA A AND B ANTIGENS BY IA NR Bacterial blood culture - 04/21/18 15:15 Bacterial blood culture NG [facility] [place] Complete blood count (CBC) with automate d white blood cell (WBC) differential - 04/22/18 03:30 Blood leukocytes automated count (number/volume) 10.6 10*3/uL 4.3-11.0 Blood erythrocytes automated count (number/volume) 3.19 10*6/uL 4.35-5.85 Venous blood hemoglobin measurement (mass/volume) 9.7 g/dL 13.3-17.7 Blood hematocrit (volume fraction) 29 % 40-54 Automated erythrocyte mean corpuscular volume 91 [ foz_us] 80-99 Automated erythrocyte mean corpuscular h emoglobin (mass per erythrocyte) 30 pg 25-34 Automated erythrocyte mean corpuscular h emoglobin concentration measurement (mass/volume) 33 g/dL 32-36 Automated erythrocyte distribution width ratio 14. 6 % 10.0- 14.5 Automated blood platelet count (count/volume) 222 10*3/uL 130-400 Automated blood platelet mean volume measurement 8.4 [foz_us] 7.4-10.4 Automated blood neutrophils/100 leukocytes 80 % 42-75 Automated blood lymphocytes/100 leukocytes 9 % 12-44 Blood monocytes/100 leukocytes 11 % 0-12 Automated blood eosinophils/100 leukocytes 0 % 0-10 Automated blood basophils/100 leukocytes 0 % 0-10 Blood neutrophils automated count (number/volume) 8.5 10*3 1.8-7.8 Blood lymphocytes automated count (number/volume) 0.9 10*3 1.0-4.0 Blood monocytes automated count (number/volume) 1. 2 10*3 0.0-1.0 Automated eosinophil count 0.0 10*3/uL 0 .0-0.3 Automated blood basophil count (count/volume) 0.0 10*3/uL 0.0-0.1 Comprehensive metabolic panel - 04/22/18 03:30 Serum or plasma sodium measurement (moles/volume) 131 mmol/L 135-145 Serum or plasma potassium measurement (moles/volume) 4.1 mmol/L 3.6-5.0 Serum or plasma chloride measurement (moles/volume) 97 mmol/L 98-107 Carbon dioxide 22 mmol/L 21-32 Serum or plasma anion gap determination (moles/volume) 12 mmol/L 5-14 Serum or plasma urea nitrogen measurement (mass/volume ) 25 mg/dL 7-18 Serum or plasma creatinine measurement (mass/volume) 1.73 mg/dL 0.60-1.30 Serum or plasma urea nitrogen/creatinine mass ratio 14 NRG Serum or plasma creatinine measurement w ith calculation of estimated glomerular filtration rate 40 NRG Serum or plasma glucose measurement (mass/volume) 104 mg/dL 70-105 Serum or plasma calcium measurement (mass/volume) 8.5 mg/dL 8.5-10.1 Serum or plasma total bilirubin measurement (mass/volu me) 0.4 mg/dL 0.1-1.0 Serum or plasma alkaline phosphatase mick surement (enzymatic activity/volume) 124 U/L 40-136 Serum or plasma aspartate aminotransfera se measurement (enzymatic activity/volume) 10 U/L 5-34 Serum or plasma alanine aminotransferase measurement (enzymatic activity/volume) < U/L 0-55 Serum or plasma protein measurement (mass/volume) 6.9 g/dL 6.4-8.2 Serum or plasma albumin measurement (mass/volume) 3.6 g/dL 3.2-4.5 CALCIUM CORRECTED 8.8 mg/dL 8.5-10.1 Serum or plasma phosphate measurement (m ass/volume) - 04/22/18 03:30 Serum or plasma phosphate measurement (mass/volume) 3.7 mg/dL 2.3-4.7 Magnesium - 04/22/18 03:30 Magnesium 2.2 mg/dL 1.8-2.4 Urine Legionella pneumophila antigen ass ay - 04/22/18 11:11 Urine Legionella pneumophila antigen assay Negativ e NRG Streptococcus pneumoniae antigen detecti on - 04/22/18 11:11 Streptococcus pneumoniae antigen detection Negativ e NRG Complete urinalysis with reflex to cultu re - 04/22/18 11:17 Urine color determination WAYLON NRG Urine clarity determination SLIGHTLY CLOUDY NRG Urine pH measurement by test strip 5 5-9 Specific gravity of urine by test strip 1.020 1.016-1.022 Urine protein assay by test strip, semi-quantitative 2+ NEGATIVE Urine glucose detection by automated test strip NE GATIVE NEGATIVE Erythrocytes detection in urine sediment by light micr oscopy NEGATIVE NEGATIVE Urine ketones detection by automated test strip 1+ NEGATIVE Urine nitrite detection by test strip NEGATIVE NEGATIVE Urine total bilirubin detection by test strip 1+ NEGATIVE Urine urobilinogen measurement by automated test strip (mass/volume) NORMAL NORMAL Urine leukocyte esterase detection by dipstick 2+ NEGATIVE Automated urine sediment erythrocyte cou nt by microscopy (number/high power field) RARE NRG Automated urine sediment leukocyte count by microscopy (number/high power field) [HPF] NRG Bacteria detection in urine sediment by light microsco py FEW NRG Squamous epithelial cells detection in u rine sediment by light microscopy 5-10 NRG Crystals detection in urine sediment by light microsco py NONE NRG Casts detection in urine sediment by light microscopy PRESENT NRG Mucus detection in urine sediment by light microscopy MODERATE NRG Complete urinalysis with reflex to culture YES NRG Hyaline casts detection in urine sediment by light julián roscopy 10-25 NRG Renal epithelial cells detection in urin e sediment by light microscopy NONE NRG Granular casts detection in urine sediment by light mi croscopy RARE NRG Coarse granular casts detection in urine sediment by l ight microscopy RARE NRG Bacterial urine culture - 04/22/18 11:17 Bacterial urine culture NG NRG Serum or plasma carbamazepine measuremen t (mass/volume) - 04/22/18 18:55 Serum or plasma carbamazepine measurement (mass/volume ) 8.2 ug/mL 4.0-12.0 DILANTIN (PHENYTOIN) - 04/22/18 18:55 DILANTIN PHEN 15.9 % 10.0-20.0 Complete blood count (CBC) with automate d white blood cell (WBC) differential - 04/23/18 06:09 Blood leukocytes automated count (number/volume) 7.1 10*3/uL 4.3-11.0 Blood erythrocytes automated count (number/volume) 2.75 10*6/uL 4.35-5.85 Venous blood hemoglobin measurement (mass/volume) 8.3 g/dL 13.3-17.7 Blood hematocrit (volume fraction) 25 % 40-54 Automated erythrocyte mean corpuscular volume 92 [ foz_us] 80-99 Automated erythrocyte mean corpuscular h emoglobin (mass per erythrocyte) 30 pg 25-34 Automated erythrocyte mean corpuscular h emoglobin concentration measurement (mass/volume) 33 g/dL 32-36 Automated erythrocyte distribution width ratio 14. 4 % 10.0- 14.5 Automated blood platelet count (count/volume) 212 10*3/uL 130-400 Automated blood platelet mean volume measurement 8.5 [foz_us] 7.4-10.4 Automated blood neutrophils/100 leukocytes 77 % 42-75 Automated blood lymphocytes/100 leukocytes 10 % 12-44 Blood monocytes/100 leukocytes 13 % 0-12 Automated blood eosinophils/100 leukocytes 0 % 0-10 Automated blood basophils/100 leukocytes 0 % 0-10 Blood neutrophils automated count (number/volume) 5.5 10*3 1.8-7.8 Blood lymphocytes automated count (number/volume) 0.7 10*3 1.0-4.0 Blood monocytes automated count (number/volume) 0. 9 10*3 0.0-1.0 Automated eosinophil count 0.0 10*3/uL 0 .0-0.3 Automated blood basophil count (count/volume) 0.0 10*3/uL 0.0-0.1 Comprehensive metabolic panel - 04/23/18 06:09 Serum or plasma sodium measurement (moles/volume) 131 mmol/L 135-145 Serum or plasma potassium measurement (moles/volume) 4.0 mmol/L 3.6-5.0 Serum or plasma chloride measurement (moles/volume) 98 mmol/L 98-107 Carbon dioxide 25 mmol/L 21-32 Serum or plasma anion gap determination (moles/volume) 8 mmol/L 5-14 Serum or plasma urea nitrogen measurement (mass/volume ) 11 mg/dL 7-18 Serum or plasma creatinine measurement (mass/volume) 0.74 mg/dL 0.60-1.30 Serum or plasma urea nitrogen/creatinine mass ratio 15 NRG Serum or plasma creatinine measurement w ith calculation of estimated glomerular filtration rate > NRG Serum or plasma glucose measurement (mass/volume) 108 mg/dL 70-105 Serum or plasma calcium measurement (mass/volume) 8.5 mg/dL 8.5-10.1 Serum or plasma total bilirubin measurement (mass/volu me) 0.2 mg/dL 0.1-1.0 Serum or plasma alkaline phosphatase mick surement (enzymatic activity/volume) 122 U/L 40-136 Serum or plasma aspartate aminotransfera se measurement (enzymatic activity/volume) 11 U/L 5-34 Serum or plasma alanine aminotransferase measurement (enzymatic activity/volume) 7 U/L 0-55 Serum or plasma protein measurement (mass/volume) 6.5 g/dL 6.4-8.2 Serum or plasma albumin measurement (mass/volume) 3.5 g/dL 3.2-4.5 CALCIUM CORRECTED 8.9 mg/dL 8.5-10.1 Automated blood complete blood count ([facility]) panel - 04/24/18 05:23 Blood leukocytes automated count (number/volume) 6.0 10*3/uL 4.3-11.0 Blood erythrocytes automated count (number/volume) 2.82 10*6/uL 4.35-5.85 Venous blood hemoglobin measurement (mass/volume) 8.6 g/dL 13.3-17.7 Blood hematocrit (volume fraction) 26 % 40-54 Automated erythrocyte mean corpuscular volume 92 [ foz_us] 80-99 Automated erythrocyte mean corpuscular h emoglobin (mass per erythrocyte) 31 pg 25-34 Automated erythrocyte mean corpuscular h emoglobin concentration measurement (mass/volume) 33 g/dL 32-36 Automated erythrocyte distribution width ratio 14. 1 % 10.0- 14.5 Automated blood platelet count (count/volume) 213 10*3/uL 130-400 Automated blood platelet mean volume measurement 8.6 [foz_us] 7.4-10.4 Whole blood basic metabolic panel - 04/01 08/16 05:23 Serum or plasma sodium measurement (moles/volume) 134 mmol/L 135-145 Serum or plasma potassium measurement (moles/volume) 4.1 mmol/L 3.6-5.0 Serum or plasma chloride measurement (moles/volume) 99 mmol/L 98-107 Carbon dioxide 28 mmol/L 21-32 Serum or plasma anion gap determination (moles/volume) 7 mmol/L 5-14 Serum or plasma urea nitrogen measurement (mass/volume ) 6 mg/dL 7-18 Serum or plasma creatinine measurement (mass/volume) 0.68 mg/dL 0.60-1.30 Serum or plasma urea nitrogen/creatinine mass ratio 9 NRG Serum or plasma creatinine measurement w ith calculation of estimated glomerular filtration rate > NRG Serum or plasma glucose measurement (mass/volume) 162 mg/dL 70-105 Serum or plasma calcium measurement (mass/volume) 8.6 mg/dL 8.5-10.1 Complete blood count (CBC) with automate d white blood cell (WBC) differential - 04/27/18 14:05 Blood leukocytes automated count (number/volume) 5.3 10*3/uL 4.3-11.0 Blood erythrocytes automated count (number/volume) 3.32 10*6/uL 4.35-5.85 Venous blood hemoglobin measurement (mass/volume) 10.1 g/dL 13.3-17.7 Blood hematocrit (volume fraction) 31 % 40-54 Automated erythrocyte mean corpuscular volume 92 [ foz_us] 80-99 Automated erythrocyte mean corpuscular h emoglobin (mass per erythrocyte) 30 pg 25-34 Automated erythrocyte mean corpuscular h emoglobin concentration measurement (mass/volume) 33 g/dL 32-36 Automated erythrocyte distribution width ratio 14. 6 % 10.0- 14.5 Automated blood platelet count (count/volume) 327 10*3/uL 130-400 Automated blood platelet mean volume measurement 8.2 [foz_us] 7.4-10.4 Automated blood neutrophils/100 leukocytes 70 % 42-75 Automated blood lymphocytes/100 leukocytes 15 % 12-44 Blood monocytes/100 leukocytes 14 % 0-12 Automated blood eosinophils/100 leukocytes 0 % 0-10 Automated blood basophils/100 leukocytes 0 % 0-10 Blood neutrophils automated count (number/volume) 3.7 10*3 1.8-7.8 Blood lymphocytes automated count (number/volume) 0.8 10*3 1.0-4.0 Blood monocytes automated count (number/volume) 0. 7 10*3 0.0-1.0 Automated eosinophil count 0.0 10*3/uL 0 .0-0.3 Automated blood basophil count (count/volume) 0.0 10*3/uL 0.0-0.1 Comprehensive metabolic panel - 04/27/18 14:05 Serum or plasma sodium measurement (moles/volume) 135 mmol/L 135-145 Serum or plasma potassium measurement (moles/volume) 4.4 mmol/L 3.6-5.0 Serum or plasma chloride measurement (moles/volume) 99 mmol/L 98-107 Carbon dioxide 26 mmol/L 21-32 Serum or plasma anion gap determination (moles/volume) 10 mmol/L 5-14 Serum or plasma urea nitrogen measurement (mass/volume ) 9 mg/dL 7-18 Serum or plasma creatinine measurement (mass/volume) 0.73 mg/dL 0.60-1.30 Serum or plasma urea nitrogen/creatinine mass ratio 12 NRG Serum or plasma creatinine measurement w ith calculation of estimated glomerular filtration rate > NRG Serum or plasma glucose measurement (mass/volume) 107 mg/dL 70-105 Serum or plasma calcium measurement (mass/volume) 9.2 mg/dL 8.5-10.1 Serum or plasma total bilirubin measurement (mass/volu me) 0.2 mg/dL 0.1-1.0 Serum or plasma alkaline phosphatase mick surement (enzymatic activity/volume) 137 U/L 40-136 Serum or plasma aspartate aminotransfera se measurement (enzymatic activity/volume) 13 U/L 5-34 Serum or plasma alanine aminotransferase measurement (enzymatic activity/volume) 7 U/L 0-55 Serum or plasma protein measurement (mass/volume) 7.6 g/dL 6.4-8.2 Serum or plasma albumin measurement (mass/volume) 3.9 g/dL 3.2-4.5 CALCIUM CORRECTED 9.3 mg/dL 8.5-10.1 Complete blood count (CBC) with automate d white blood cell (WBC) differential - 05/14/18 15:05 Blood leukocytes automated count (number/volume) 4.6 10*3/uL 4.3-11.0 Blood erythrocytes automated count (number/volume) 3.80 10*6/uL 4.35-5.85 Venous blood hemoglobin measurement (mass/volume) 11.2 g/dL 13.3-17.7 Blood hematocrit (volume fraction) 34 % 40-54 Automated erythrocyte mean corpuscular volume 90 [ foz_us] 80-99 Automated erythrocyte mean corpuscular h emoglobin (mass per erythrocyte) 30 pg 25-34 Automated erythrocyte mean corpuscular h emoglobin concentration measurement (mass/volume) 33 g/dL 32-36 Automated erythrocyte distribution width ratio 14. 3 % 10.0- 14.5 Automated blood platelet count (count/volume) 238 10*3/uL 130-400 Automated blood platelet mean volume measurement 8.3 [foz_us] 7.4-10.4 Automated blood neutrophils/100 leukocytes 75 % 42-75 Automated blood lymphocytes/100 leukocytes 12 % 12-44 Blood monocytes/100 leukocytes 13 % 0-12 Automated blood eosinophils/100 leukocytes 0 % 0-10 Automated blood basophils/100 leukocytes 0 % 0-10 Blood neutrophils automated count (number/volume) 3.5 10*3 1.8-7.8 Blood lymphocytes automated count (number/volume) 0.5 10*3 1.0-4.0 Blood monocytes automated count (number/volume) 0. 6 10*3 0.0-1.0 Automated eosinophil count 0.0 10*3/uL 0 .0-0.3 Automated blood basophil count (count/volume) 0.0 10*3/uL 0.0-0.1 Complete blood count (CBC) with automate d white blood cell (WBC) differential - 05/15/18 12:15 Blood leukocytes automated count (number/volume) 4.2 10*3/uL 4.3-11.0 Blood erythrocytes automated count (number/volume) 3.72 10*6/uL 4.35-5.85 Venous blood hemoglobin measurement (mass/volume) 11.0 g/dL 13.3-17.7 Blood hematocrit (volume fraction) 33 % 40-54 Automated erythrocyte mean corpuscular volume 89 [ foz_us] 80-99 Automated erythrocyte mean corpuscular h emoglobin (mass per erythrocyte) 30 pg 25-34 Automated erythrocyte mean corpuscular h emoglobin concentration measurement (mass/volume) 33 g/dL 32-36 Automated erythrocyte distribution width ratio 14. 5 % 10.0- 14.5 Automated blood platelet count (count/volume) 230 10*3/uL 130-400 Automated blood platelet mean volume measurement 8.1 [foz_us] 7.4-10.4 Automated blood neutrophils/100 leukocytes 65 % 42-75 Automated blood lymphocytes/100 leukocytes 18 % 12-44 Blood monocytes/100 leukocytes 17 % 0-12 Automated blood eosinophils/100 leukocytes 0 % 0-10 Automated blood basophils/100 leukocytes 1 % 0-10 Blood neutrophils automated count (number/volume) 2.7 10*3 1.8-7.8 Blood lymphocytes automated count (number/volume) 0.7 10*3 1.0-4.0 Blood monocytes automated count (number/volume) 0. 7 10*3 0.0-1.0 Automated eosinophil count 0.0 10*3/uL 0 .0-0.3 Automated blood basophil count (count/volume) 0.0 10*3/uL 0.0-0.1 Comprehensive metabolic panel - 05/15/18 12:15 Serum or plasma sodium measurement (moles/volume) 126 mmol/L 135-145 Serum or plasma potassium measurement (moles/volume) 4.6 mmol/L 3.6-5.0 Serum or plasma chloride measurement (moles/volume) 91 mmol/L 98-107 Carbon dioxide 25 mmol/L 21-32 Serum or plasma anion gap determination (moles/volume) 10 mmol/L 5-14 Serum or plasma urea nitrogen measurement (mass/volume ) 14 mg/dL 7-18 Serum or plasma creatinine measurement (mass/volume) 0.77 mg/dL 0.60-1.30 Serum or plasma urea nitrogen/creatinine mass ratio 18 NRG Serum or plasma creatinine measurement w ith calculation of estimated glomerular filtration rate > NRG Serum or plasma glucose measurement (mass/volume) 116 mg/dL 70-105 Serum or plasma calcium measurement (mass/volume) 8.8 mg/dL 8.5-10.1 Serum or plasma total bilirubin measurement (mass/volu me) 0.3 mg/dL 0.1-1.0 Serum or plasma alkaline phosphatase mick surement (enzymatic activity/volume) 188 U/L 40-136 Serum or plasma aspartate aminotransfera se measurement (enzymatic activity/volume) 32 U/L 5-34 Serum or plasma alanine aminotransferase measurement (enzymatic activity/volume) 13 U/L 0-55 Serum or plasma protein measurement (mass/volume) 7.6 g/dL 6.4-8.2 Serum or plasma albumin measurement (mass/volume) 3.9 g/dL 3.2-4.5 CALCIUM CORRECTED 8.9 mg/dL 8.5-10.1 Lipase - 05/15/18 12:15 Lipase < U/L 8-78 Arterial blood gas measurement - 9 12:26 Blood pCO2 42 mm[Hg] 35-45 Blood pO2 84 mm[Hg] 79-93 Arterial blood bicarbonate measurement (moles/volume) 27 mmol/L 23-27 Arterial blood base excess by calculation 2.2 mmol /L -2.5-2.5 Arterial blood oxygen saturation measurement 97 % 94-100 * Inhaled oxygen flow rate 3 NRG Arterial blood pH measurement with patient temperature correction 7.42 7.37-7.43 Arterial blood carbon dioxide, total measurement (mole s/volume) 27.9 mmol/L 21.0-31.0 Body site R BRACHIAL NRG Assessment of wrist artery patency prior to arterial p uncture YES-POS NRG Setting of ventilation mode NO NR G Measurement of body temperature 97.0 NRG Blood lactic acid measurement (moles/vol ume) - 05/15/18 16:49 Blood lactic acid measurement (moles/volume) 0.66 mmol/L 0.50-2.00 Bacterial blood culture - 05/15/18 16:49 Bacterial blood culture NG NRG Bacterial blood culture - 05/15/18 17:02 Bacterial blood culture NG NRG Complete blood count (CBC) with automate d white blood cell (WBC) differential - 05/16/18 03:30 Blood leukocytes automated count (number/volume) 2.4 10*3/uL 4.3-11.0 Blood erythrocytes automated count (number/volume) 3.12 10*6/uL 4.35-5.85 Venous blood hemoglobin measurement (mass/volume) 9.3 g/dL 13.3-17.7 Blood hematocrit (volume fraction) 28 % 40-54 Automated erythrocyte mean corpuscular volume 90 [ foz_us] 80-99 Automated erythrocyte mean corpuscular h emoglobin (mass per erythrocyte) 30 pg 25-34 Automated erythrocyte mean corpuscular h emoglobin concentration measurement (mass/volume) 33 g/dL 32-36 Automated erythrocyte distribution width ratio 14. 6 % 10.0- 14.5 Automated blood platelet count (count/volume) 201 10*3/uL 130-400 Automated blood platelet mean volume measurement 8.2 [foz_us] 7.4-10.4 Automated blood neutrophils/100 leukocytes 70 % 42-75 Automated blood lymphocytes/100 leukocytes 19 % 12-44 Blood monocytes/100 leukocytes 12 % 0-12 Automated blood eosinophils/100 leukocytes 0 % 0-10 Automated blood basophils/100 leukocytes 0 % 0-10 Blood neutrophils automated count (number/volume) 1.7 10*3 1.8-7.8 Blood lymphocytes automated count (number/volume) 0.5 10*3 1.0-4.0 Blood monocytes automated count (number/volume) 0. 3 10*3 0.0-1.0 Automated eosinophil count 0.0 10*3/uL 0 .0-0.3 Automated blood basophil count (count/volume) 0.0 10*3/uL 0.0-0.1 Comprehensive metabolic panel - 05/16/18 03:30 Serum or plasma sodium measurement (moles/volume) 130 mmol/L 135-145 Serum or plasma potassium measurement (moles/volume) 4.3 mmol/L 3.6-5.0 Serum or plasma chloride measurement (moles/volume) 98 mmol/L 98-107 Carbon dioxide 24 mmol/L 21-32 Serum or plasma anion gap determination (moles/volume) 8 mmol/L 5-14 Serum or plasma urea nitrogen measurement (mass/volume ) 10 mg/dL 7-18 Serum or plasma creatinine measurement (mass/volume) 0.74 mg/dL 0.60-1.30 Serum or plasma urea nitrogen/creatinine mass ratio 14 NRG Serum or plasma creatinine measurement w ith calculation of estimated glomerular filtration rate > NRG Serum or plasma glucose measurement (mass/volume) 135 mg/dL 70-105 Serum or plasma calcium measurement (mass/volume) 8.1 mg/dL 8.5-10.1 Serum or plasma total bilirubin measurement (mass/volu me) 0.2 mg/dL 0.1-1.0 Serum or plasma alkaline phosphatase mick surement (enzymatic activity/volume) 140 U/L 40-136 Serum or plasma aspartate aminotransfera se measurement (enzymatic activity/volume) 27 U/L 5-34 Serum or plasma alanine aminotransferase measurement (enzymatic activity/volume) 13 U/L 0-55 Serum or plasma protein measurement (mass/volume) 6.3 g/dL 6.4-8.2 Serum or plasma albumin measurement (mass/volume) 3.4 g/dL 3.2-4.5 CALCIUM CORRECTED 8.6 mg/dL 8.5-10.1 Complete blood count (CBC) with automate d white blood cell (WBC) differential - 05/17/18 05:30 Blood leukocytes automated count (number/volume) 3.3 10*3/uL 4.3-11.0 Blood erythrocytes automated count (number/volume) 3.00 10*6/uL 4.35-5.85 Venous blood hemoglobin measurement (mass/volume) 9.1 g/dL 13.3-17.7 Blood hematocrit (volume fraction) 28 % 40-54 Automated erythrocyte mean corpuscular volume 92 [ foz_us] 80-99 Automated erythrocyte mean corpuscular h emoglobin (mass per erythrocyte) 30 pg 25-34 Automated erythrocyte mean corpuscular h emoglobin concentration measurement (mass/volume) 33 g/dL 32-36 Automated erythrocyte distribution width ratio 14. 9 % 10.0- 14.5 Automated blood platelet count (count/volume) 229 10*3/uL 130-400 Automated blood platelet mean volume measurement 8.3 [foz_us] 7.4-10.4 Automated blood neutrophils/100 leukocytes 63 % 42-75 Automated blood lymphocytes/100 leukocytes 21 % 12-44 Blood monocytes/100 leukocytes 16 % 0-12 Automated blood eosinophils/100 leukocytes 0 % 0-10 Automated blood basophils/100 leukocytes 0 % 0-10 Blood neutrophils automated count (number/volume) 2.1 10*3 1.8-7.8 Blood lymphocytes automated count (number/volume) 0.7 10*3 1.0-4.0 Blood monocytes automated count (number/volume) 0. 5 10*3 0.0-1.0 Automated eosinophil count 0.0 10*3/uL 0 .0-0.3 Automated blood basophil count (count/volume) 0.0 10*3/uL 0.0-0.1 Comprehensive metabolic panel - 05/17/18 05:30 Serum or plasma sodium measurement (moles/volume) 134 mmol/L 135-145 Serum or plasma potassium measurement (moles/volume) 4.2 mmol/L 3.6-5.0 Serum or plasma chloride measurement (moles/volume) 103 mmol/L 98-107 Carbon dioxide 24 mmol/L 21-32 Serum or plasma anion gap determination (moles/volume) 7 mmol/L 5-14 Serum or plasma urea nitrogen measurement (mass/volume ) 9 mg/dL 7-18 Serum or plasma creatinine measurement (mass/volume) 0.71 mg/dL 0.60-1.30 Serum or plasma urea nitrogen/creatinine mass ratio 13 NRG Serum or plasma creatinine measurement w ith calculation of estimated glomerular filtration rate > NRG Serum or plasma glucose measurement (mass/volume) 147 mg/dL 70-105 Serum or plasma calcium measurement (mass/volume) 8.2 mg/dL 8.5-10.1 Serum or plasma total bilirubin measurement (mass/volu me) 0.2 mg/dL 0.1-1.0 Serum or plasma alkaline phosphatase mick surement (enzymatic activity/volume) 130 U/L 40-136 Serum or plasma aspartate aminotransfera se measurement (enzymatic activity/volume) 31 U/L 5-34 Serum or plasma alanine aminotransferase measurement (enzymatic activity/volume) 12 U/L 0-55 Serum or plasma protein measurement (mass/volume) 6.1 g/dL 6.4-8.2 Serum or plasma albumin measurement (mass/volume) 3.3 g/dL 3.2-4.5 CALCIUM CORRECTED 8.8 mg/dL 8.5-10.1 Complete blood count (CBC) with automate d white blood cell (WBC) differential - 05/18/18 05:37 Blood leukocytes automated count (number/volume) 5.2 10*3/uL 4.3-11.0 Blood erythrocytes automated count (number/volume) 3.08 10*6/uL 4.35-5.85 Venous blood hemoglobin measurement (mass/volume) 9.2 g/dL 13.3-17.7 Blood hematocrit (volume fraction) 29 % 40-54 Automated erythrocyte mean corpuscular volume 93 [ foz_us] 80-99 Automated erythrocyte mean corpuscular h emoglobin (mass per erythrocyte) 30 pg 25-34 Automated erythrocyte mean corpuscular h emoglobin concentration measurement (mass/volume) 32 g/dL 32-36 Automated erythrocyte distribution width ratio 15. 0 % 10.0- 14.5 Automated blood platelet count (count/volume) 229 10*3/uL 130-400 Automated blood platelet mean volume measurement 8.4 [foz_us] 7.4-10.4 Automated blood neutrophils/100 leukocytes 66 % 42-75 Automated blood lymphocytes/100 leukocytes 20 % 12-44 Blood monocytes/100 leukocytes 13 % 0-12 Automated blood eosinophils/100 leukocytes 0 % 0-10 Automated blood basophils/100 leukocytes 1 % 0-10 Blood neutrophils automated count (number/volume) 3.5 10*3 1.8-7.8 Blood lymphocytes automated count (number/volume) 1.1 10*3 1.0-4.0 Blood monocytes automated count (number/volume) 0. 7 10*3 0.0-1.0 Automated eosinophil count 0.0 10*3/uL 0 .0-0.3 Automated blood basophil count (count/volume) 0.0 10*3/uL 0.0-0.1 Comprehensive metabolic panel - 05/18/18 05:37 Serum or plasma sodium measurement (moles/volume) 136 mmol/L 135-145 Serum or plasma potassium measurement (moles/volume) 3.9 mmol/L 3.6-5.0 Serum or plasma chloride measurement (moles/volume) 101 mmol/L 98-107 Carbon dioxide 28 mmol/L 21-32 Serum or plasma anion gap determination (moles/volume) 7 mmol/L 5-14 Serum or plasma urea nitrogen measurement (mass/volume ) 9 mg/dL 7-18 Serum or plasma creatinine measurement (mass/volume) 0.77 mg/dL 0.60-1.30 Serum or plasma urea nitrogen/creatinine mass ratio 12 NRG Serum or plasma creatinine measurement w ith calculation of estimated glomerular filtration rate > NRG Serum or plasma glucose measurement (mass/volume) 149 mg/dL 70-105 Serum or plasma calcium measurement (mass/volume) 8.3 mg/dL 8.5-10.1 Serum or plasma total bilirubin measurement (mass/volu me) 0.2 mg/dL 0.1-1.0 Serum or plasma alkaline phosphatase mick surement (enzymatic activity/volume) 129 U/L 40-136 Serum or plasma aspartate aminotransfera se measurement (enzymatic activity/volume) 26 U/L 5-34 Serum or plasma alanine aminotransferase measurement (enzymatic activity/volume) 15 U/L 0-55 Serum or plasma protein measurement (mass/volume) 6.1 g/dL 6.4-8.2 Serum or plasma albumin measurement (mass/volume) 3.4 g/dL 3.2-4.5 CALCIUM CORRECTED 8.8 mg/dL 8.5-10.1 Magnesium - 05/18/18 05:37 Magnesium 2.0 mg/dL 1.8-2.4 Complete blood count (CBC) with automate d white blood cell (WBC) differential - 05/19/18 05:51 Blood leukocytes automated count (number/volume) 3.1 10*3/uL 4.3-11.0 Blood erythrocytes automated count (number/volume) 3.03 10*6/uL 4.35-5.85 Venous blood hemoglobin measurement (mass/volume) 9.0 g/dL 13.3-17.7 Blood hematocrit (volume fraction) 28 % 40-54 Automated erythrocyte mean corpuscular volume 93 [ foz_us] 80-99 Automated erythrocyte mean corpuscular h emoglobin (mass per erythrocyte) 30 pg 25-34 Automated erythrocyte mean corpuscular h emoglobin concentration measurement (mass/volume) 32 g/dL 32-36 Automated erythrocyte distribution width ratio 15. 4 % 10.0- 14.5 Automated blood platelet count (count/volume) 240 10*3/uL 130-400 Automated blood platelet mean volume measurement 8.3 [foz_us] 7.4-10.4 Automated blood neutrophils/100 leukocytes 48 % 42-75 Automated blood lymphocytes/100 leukocytes 34 % 12-44 Blood monocytes/100 leukocytes 18 % 0-12 Automated blood eosinophils/100 leukocytes 0 % 0-10 Automated blood basophils/100 leukocytes 0 % 0-10 Blood neutrophils automated count (number/volume) 1.5 10*3 1.8-7.8 Blood lymphocytes automated count (number/volume) 1.0 10*3 1.0-4.0 Blood monocytes automated count (number/volume) 0. 6 10*3 0.0-1.0 Automated eosinophil count 0.0 10*3/uL 0 .0-0.3 Automated blood basophil count (count/volume) 0.0 10*3/uL 0.0-0.1 Whole blood basic metabolic panel - 05/01 12/17 05:51 Serum or plasma sodium measurement (moles/volume) 137 mmol/L 135-145 Serum or plasma potassium measurement (moles/volume) 4.1 mmol/L 3.6-5.0 Serum or plasma chloride measurement (moles/volume) 100 mmol/L 98-107 Carbon dioxide 29 mmol/L 21-32 Serum or plasma anion gap determination (moles/volume) 8 mmol/L 5-14 Serum or plasma urea nitrogen measurement (mass/volume ) 10 mg/dL 7-18 Serum or plasma creatinine measurement (mass/volume) 0.74 mg/dL 0.60-1.30 Serum or plasma urea nitrogen/creatinine mass ratio 14 NRG Serum or plasma creatinine measurement w ith calculation of estimated glomerular filtration rate > NRG Serum or plasma glucose measurement (mass/volume) 194 mg/dL 70-105 Serum or plasma calcium measurement (mass/volume) 8.5 mg/dL 8.5-10.1 Complete blood count (CBC) with automate d white blood cell (WBC) differential - 06/10/18 03:42 Blood leukocytes automated count (number/volume) 5.1 10*3/uL 4.3-11.0 Blood erythrocytes automated count (number/volume) 3.14 10*6/uL 4.35-5.85 Venous blood hemoglobin measurement (mass/volume) 9.5 g/dL 13.3-17.7 Blood hematocrit (volume fraction) 29 % 40-54 Automated erythrocyte mean corpuscular volume 91 [ foz_us] 80-99 Automated erythrocyte mean corpuscular h emoglobin (mass per erythrocyte) 30 pg 25-34 Automated erythrocyte mean corpuscular h emoglobin concentration measurement (mass/volume) 33 g/dL 32-36 Automated erythrocyte distribution width ratio 15. 0 % 10.0- 14.5 Automated blood platelet count (count/volume) 211 10*3/uL 130-400 Automated blood platelet mean volume measurement 8.4 [foz_us] 7.4-10.4 Automated blood neutrophils/100 leukocytes 67 % 42-75 Automated blood lymphocytes/100 leukocytes 16 % 12-44 Blood monocytes/100 leukocytes 17 % 0-12 Automated blood eosinophils/100 leukocytes 0 % 0-10 Automated blood basophils/100 leukocytes 0 % 0-10 Blood neutrophils automated count (number/volume) 3.4 10*3 1.8-7.8 Blood lymphocytes automated count (number/volume) 0.8 10*3 1.0-4.0 Blood monocytes automated count (number/volume) 0. 8 10*3 0.0-1.0 Automated eosinophil count 0.0 10*3/uL 0 .0-0.3 Automated blood basophil count (count/volume) 0.0 10*3/uL 0.0-0.1 Blood lactic acid measurement (moles/vol ume) - 06/10/18 03:42 Blood lactic acid measurement (moles/volume) 1.24 mmol/L 0.50-2.00 Comprehensive metabolic panel - 06/10/18 03:42 Serum or plasma sodium measurement (moles/volume) 136 mmol/L 135-145 Serum or plasma potassium measurement (moles/volume) 4.4 mmol/L 3.6-5.0 Serum or plasma chloride measurement (moles/volume) 100 mmol/L 98-107 Carbon dioxide 25 mmol/L 21-32 Serum or plasma anion gap determination (moles/volume) 11 mmol/L 5-14 Serum or plasma urea nitrogen measurement (mass/volume ) 11 mg/dL 7-18 Serum or plasma creatinine measurement (mass/volume) 0.72 mg/dL 0.60-1.30 Serum or plasma urea nitrogen/creatinine mass ratio 15 NRG Serum or plasma creatinine measurement w ith calculation of estimated glomerular filtration rate > NRG Serum or plasma glucose measurement (mass/volume) 147 mg/dL 70-105 Serum or plasma calcium measurement (mass/volume) 8.9 mg/dL 8.5-10.1 Serum or plasma total bilirubin measurement (mass/volu me) 0.2 mg/dL 0.1-1.0 Serum or plasma alkaline phosphatase mick surement (enzymatic activity/volume) 161 U/L 40-136 Serum or plasma aspartate aminotransfera se measurement (enzymatic activity/volume) 14 U/L 5-34 Serum or plasma alanine aminotransferase measurement (enzymatic activity/volume) 6 U/L 0-55 Serum or plasma protein measurement (mass/volume) 7.2 g/dL 6.4-8.2 Serum or plasma albumin measurement (mass/volume) 3.9 g/dL 3.2-4.5 CALCIUM CORRECTED 9.0 mg/dL 8.5-10.1 PT panel in platelet poor plasma by coag ulation assay - 06/10/18 03:42 Prothrombin time (PT) in platelet poor plasma by coagu lation assay 12.9 s 12.2-14.7 INR in platelet poor plasma or blood by coagulation as say 1.0 0.8-1.4 Activated partial thromboplastin time (a PTT) in platelet poor plasma bycoagulation assay - 06/10/18 03:42 Activated partial thromboplastin time (a PTT) in platelet poor plasma bycoagulation assay 42 s 24-35 Serum or plasma troponin i.cardiac measu rement (mass/volume) - 06/10/18 03:42 Serum or plasma troponin i.cardiac measurement (mass/v olume) < ng/mL <0.028 Serum or plasma lithium measurement (mol es/volume) - 06/10/18 03:42 BNP level 97.3 pg/mL <100.0 PROCALCITONIN (PCT) - 06/10/18 03:42 PROCALCITONIN (PCT) 0.03 ng/mL <0.10 Bacterial blood culture - 06/10/18 03:42 Bacterial blood culture [facility] Influenza virus A and B antigen detectio n - 06/10/18 03:45 FLU RESULT NEGATIVE FOR INFLUENZA A AND B ANTIGENS BY [place] [facility] [place] Bacterial blood culture - 06/10/18 04:46 Bacterial blood culture [facility] Complete urinalysis with reflex to cultu re - 06/10/18 09:25 Urine color determination YELLOW G Urine clarity determination CLEAR NR G Urine pH measurement by test strip 6 5-9 Specific gravity of urine by test strip 1.015 1.016-1.022 Urine protein assay by test strip, semi-quantitative NEGATIVE NEGATIVE Urine glucose detection by automated test strip NE GATIVE NEGATIVE Erythrocytes detection in urine sediment by light micr oscopy NEGATIVE NEGATIVE Urine ketones detection by automated test strip NE GATIVE NEGATIVE Urine nitrite detection by test strip NEGATIVE NEGATIVE Urine total bilirubin detection by test strip NEGA TIVE NEGATIVE Urine urobilinogen measurement by automated test strip (mass/volume) NORMAL NORMAL Urine leukocyte esterase detection by dipstick NEG ATIVE NEGATIVE Automated urine sediment erythrocyte cou nt by microscopy (number/high power field) NONE NRG Automated urine sediment leukocyte count by microscopy (number/high power field) RARE NRG Bacteria detection in urine sediment by light microsco py NEGATIVE NRG Squamous epithelial cells detection in u rine sediment by light microscopy RARE NRG Crystals detection in urine sediment by light microsco py NONE NRG Casts detection in urine sediment by light microscopy NONE NRG Mucus detection in urine sediment by light microscopy SMALL NRG Complete urinalysis with reflex to culture NO NRG Bacterial urine culture - 06/10/18 09:25 Bacterial urine culture NG NRG Complete blood count (CBC) with automate d white blood cell (WBC) differential - 06/11/18 05:10 Blood leukocytes automated count (number/volume) 3.1 10*3/uL 4.3-11.0 Blood erythrocytes automated count (number/volume) 2.86 10*6/uL 4.35-5.85 Venous blood hemoglobin measurement (mass/volume) 8.4 g/dL 13.3-17.7 Blood hematocrit (volume fraction) 26 % 40-54 Automated erythrocyte mean corpuscular volume 91 [ foz_us] 80-99 Automated erythrocyte mean corpuscular h emoglobin (mass per erythrocyte) 29 pg 25-34 Automated erythrocyte mean corpuscular h emoglobin concentration measurement (mass/volume) 32 g/dL 32-36 Automated erythrocyte distribution width ratio 14. 8 % 10.0- 14.5 Automated blood platelet count (count/volume) 185 10*3/uL 130-400 Automated blood platelet mean volume measurement 8.4 [foz_us] 7.4-10.4 Automated blood neutrophils/100 leukocytes 53 % 42-75 Automated blood lymphocytes/100 leukocytes 30 % 12-44 Blood monocytes/100 leukocytes 17 % 0-12 Automated blood eosinophils/100 leukocytes 0 % 0-10 Automated blood basophils/100 leukocytes 0 % 0-10 Blood neutrophils automated count (number/volume) 1.6 10*3 1.8-7.8 Blood lymphocytes automated count (number/volume) 0.9 10*3 1.0-4.0 Blood monocytes automated count (number/volume) 0. 5 10*3 0.0-1.0 Automated eosinophil count 0.0 10*3/uL 0 .0-0.3 Automated blood basophil count (count/volume) 0.0 10*3/uL 0.0-0.1 Comprehensive metabolic panel - 06/11/18 05:10 Serum or plasma sodium measurement (moles/volume) 134 mmol/L 135-145 Serum or plasma potassium measurement (moles/volume) 3.9 mmol/L 3.6-5.0 Serum or plasma chloride measurement (moles/volume) 99 mmol/L 98-107 Carbon dioxide 26 mmol/L 21-32 Serum or plasma anion gap determination (moles/volume) 9 mmol/L 5-14 Serum or plasma urea nitrogen measurement (mass/volume ) 10 mg/dL 7-18 Serum or plasma creatinine measurement (mass/volume) 0.71 mg/dL 0.60-1.30 Serum or plasma urea nitrogen/creatinine mass ratio 14 NRG Serum or plasma creatinine measurement w ith calculation of estimated glomerular filtration rate > NRG Serum or plasma glucose measurement (mass/volume) 171 mg/dL 70-105 Serum or plasma calcium measurement (mass/volume) 8.5 mg/dL 8.5-10.1 Serum or plasma total bilirubin measurement (mass/volu me) 0.2 mg/dL 0.1-1.0 Serum or plasma alkaline phosphatase mick surement (enzymatic activity/volume) 140 U/L 40-136 Serum or plasma aspartate aminotransfera se measurement (enzymatic activity/volume) 13 U/L 5-34 Serum or plasma alanine aminotransferase measurement (enzymatic activity/volume) 6 U/L 0-55 Serum or plasma protein measurement (mass/volume) 6.4 g/dL 6.4-8.2 Serum or plasma albumin measurement (mass/volume) 3.5 g/dL 3.2-4.5 CALCIUM CORRECTED 8.9 mg/dL 8.5-10.1 Automated blood complete blood count (he mogram) panel - 06/12/18 05:35 Blood leukocytes automated count (number/volume) 3.0 10*3/uL 4.3-11.0 Blood erythrocytes automated count (number/volume) 2.87 10*6/uL 4.35-5.85 Venous blood hemoglobin measurement (mass/volume) 8.5 g/dL 13.3-17.7 Blood hematocrit (volume fraction) 26 % 40-54 Automated erythrocyte mean corpuscular volume 91 [ foz_us] 80-99 Automated erythrocyte mean corpuscular h emoglobin (mass per erythrocyte) 30 pg 25-34 Automated erythrocyte mean corpuscular h emoglobin concentration measurement (mass/volume) 33 g/dL 32-36 Automated erythrocyte distribution width ratio 14. 9 % 10.0- 14.5 Automated blood platelet count (count/volume) 217 10*3/uL 130-400 Automated blood platelet mean volume measurement 8.1 [foz_us] 7.4-10.4 Comprehensive metabolic panel - 06/12/18 05:35 Serum or plasma sodium measurement (moles/volume) 133 mmol/L 135-145 Serum or plasma potassium measurement (moles/volume) 4.1 mmol/L 3.6-5.0 Serum or plasma chloride measurement (moles/volume) 97 mmol/L 98-107 Carbon dioxide 28 mmol/L 21-32 Serum or plasma anion gap determination (moles/volume) 8 mmol/L 5-14 Serum or plasma urea nitrogen measurement (mass/volume ) 9 mg/dL 7-18 Serum or plasma creatinine measurement (mass/volume) 0.71 mg/dL 0.60-1.30 Serum or plasma urea nitrogen/creatinine mass ratio 13 NRG Serum or plasma creatinine measurement w ith calculation of estimated glomerular filtration rate > NRG Serum or plasma glucose measurement (mass/volume) 97 mg/dL 70-105 Serum or plasma calcium measurement (mass/volume) 8.6 mg/dL 8.5-10.1 Serum or plasma total bilirubin measurement (mass/volu me) 0.2 mg/dL 0.1-1.0 Serum or plasma alkaline phosphatase mick surement (enzymatic activity/volume) 139 U/L 40-136 Serum or plasma aspartate aminotransfera se measurement (enzymatic activity/volume) 15 U/L 5-34 Serum or plasma alanine aminotransferase measurement (enzymatic activity/volume) 11 U/L 0-55 Serum or plasma protein measurement (mass/volume) 6.3 g/dL 6.4-8.2 Serum or plasma albumin measurement (mass/volume) 3.5 g/dL 3.2-4.5 CALCIUM CORRECTED 9.0 mg/dL 8.5-10.1 Complete blood count (CBC) with automate d white blood cell (WBC) differential - 06/13/18 04:58 Blood leukocytes automated count (number/volume) 3.6 10*3/uL 4.3-11.0 Blood erythrocytes automated count (number/volume) 2.85 10*6/uL 4.35-5.85 Venous blood hemoglobin measurement (mass/volume) 8.4 g/dL 13.3-17.7 Blood hematocrit (volume fraction) 26 % 40-54 Automated erythrocyte mean corpuscular volume 91 [ foz_us] 80-99 Automated erythrocyte mean corpuscular h emoglobin (mass per erythrocyte) 29 pg 25-34 Automated erythrocyte mean corpuscular h emoglobin concentration measurement (mass/volume) 32 g/dL 32-36 Automated erythrocyte distribution width ratio 14. 9 % 10.0- 14.5 Automated blood platelet count (count/volume) 215 10*3/uL 130-400 Automated blood platelet mean volume measurement 8.1 [foz_us] 7.4-10.4 Automated blood neutrophils/100 leukocytes 52 % 42-75 Automated blood lymphocytes/100 leukocytes 28 % 12-44 Blood monocytes/100 leukocytes 20 % 0-12 Automated blood eosinophils/100 leukocytes 0 % 0-10 Automated blood basophils/100 leukocytes 0 % 0-10 Blood neutrophils automated count (number/volume) 1.9 10*3 1.8-7.8 Blood lymphocytes automated count (number/volume) 1.0 10*3 1.0-4.0 Blood monocytes automated count (number/volume) 0. 7 10*3 0.0-1.0 Automated eosinophil count 0.0 10*3/uL 0 .0-0.3 Automated blood basophil count (count/volume) 0.0 10*3/uL 0.0-0.1 Whole blood basic metabolic panel - 05/29 09/16 04:58 Serum or plasma sodium measurement (moles/volume) 130 mmol/L 135-145 Serum or plasma potassium measurement (moles/volume) 4.2 mmol/L 3.6-5.0 Serum or plasma chloride measurement (moles/volume) 96 mmol/L 98-107 Carbon dioxide 26 mmol/L 21-32 Serum or plasma anion gap determination (moles/volume) 8 mmol/L 5-14 Serum or plasma urea nitrogen measurement (mass/volume ) 13 mg/dL 7-18 Serum or plasma creatinine measurement (mass/volume) 0.71 mg/dL 0.60-1.30 Serum or plasma urea nitrogen/creatinine mass ratio 18 NRG Serum or plasma creatinine measurement w ith calculation of estimated glomerular filtration rate > NRG Serum or plasma glucose measurement (mass/volume) 97 mg/dL 70-105 Serum or plasma calcium measurement (mass/volume) 8.3 mg/dL 8.5-10.1 Blood manual differential performed dete ction - 06/13/18 04:58 Blood monocytes/100 leukocytes 15 % NRG Manual blood segmented neutrophils/100 leukocytes 58 % NRG Manual blood lymphocytes/100 leukocytes 27 % NRG Complete blood count (CBC) with automate d white blood cell (WBC) differential - 06/24/18 19:05 Blood leukocytes automated count (number/volume) 3.6 10*3/uL 4.3-11.0 Blood erythrocytes automated count (number/volume) 3.37 10*6/uL 4.35-5.85 Venous blood hemoglobin measurement (mass/volume) 10.0 g/dL 13.3-17.7 Blood hematocrit (volume fraction) 31 % 40-54 Automated erythrocyte mean corpuscular volume 91 [ foz_us] 80-99 Automated erythrocyte mean corpuscular h emoglobin (mass per erythrocyte) 30 pg 25-34 Automated erythrocyte mean corpuscular h emoglobin concentration measurement (mass/volume) 33 g/dL 32-36 Automated erythrocyte distribution width ratio 14. 4 % 10.0- 14.5 Automated blood platelet count (count/volume) 214 10*3/uL 130-400 Automated blood platelet mean volume measurement 8.5 [foz_us] 7.4-10.4 Automated blood neutrophils/100 leukocytes 50 % 42-75 Automated blood lymphocytes/100 leukocytes 30 % 12-44 Blood monocytes/100 leukocytes 19 % 0-12 Automated blood eosinophils/100 leukocytes 0 % 0-10 Automated blood basophils/100 leukocytes 0 % 0-10 Blood neutrophils automated count (number/volume) 1.8 10*3 1.8-7.8 Blood lymphocytes automated count (number/volume) 1.1 10*3 1.0-4.0 Blood monocytes automated count (number/volume) 0. 7 10*3 0.0-1.0 Automated eosinophil count 0.0 10*3/uL 0 .0-0.3 Automated blood basophil count (count/volume) 0.0 10*3/uL 0.0-0.1 PT panel in platelet poor plasma by coag ulation assay - 06/24/18 19:05 Prothrombin time (PT) in platelet poor plasma by coagu lation assay 13.3 s 12.2-14.7 INR in platelet poor plasma or blood by coagulation as say 1.0 0.8-1.4 Activated partial thromboplastin time (a PTT) in platelet poor plasma bycoagulation assay - 06/24/18 19:05 Activated partial thromboplastin time (a PTT) in platelet poor plasma bycoagulation assay 35 s 24-35 Fibrin D-dimer FEU measurement in platel et poor plasma (mass/volume) - 06/24/18 19:05 Fibrin D-dimer FEU measurement in platelet poor plasma (mass/volume) 0.51 ug/mL 0.00-0.49 Blood lactic acid measurement (moles/vol ume) - 06/24/18 19:05 Blood lactic acid measurement (moles/volume) 2.22 mmol/L 0.50-2.00 Comprehensive metabolic panel - 06/24/18 19:05 Serum or plasma sodium measurement (moles/volume) 135 mmol/L 135-145 Serum or plasma potassium measurement (moles/volume) 4.6 mmol/L 3.6-5.0 Serum or plasma chloride measurement (moles/volume) 99 mmol/L 98-107 Carbon dioxide 23 mmol/L 21-32 Serum or plasma anion gap determination (moles/volume) 13 mmol/L 5-14 Serum or plasma urea nitrogen measurement (mass/volume ) 11 mg/dL 7-18 Serum or plasma creatinine measurement (mass/volume) 0.79 mg/dL 0.60-1.30 Serum or plasma urea nitrogen/creatinine mass ratio 14 NRG Serum or plasma creatinine measurement w ith calculation of estimated glomerular filtration rate > NRG Serum or plasma glucose measurement (mass/volume) 102 mg/dL 70-105 Serum or plasma calcium measurement (mass/volume) 8.6 mg/dL 8.5-10.1 Serum or plasma total bilirubin measurement (mass/volu me) 0.2 mg/dL 0.1-1.0 Serum or plasma alkaline phosphatase mick surement (enzymatic activity/volume) 148 U/L 40-136 Serum or plasma aspartate aminotransfera se measurement (enzymatic activity/volume) 12 U/L 5-34 Serum or plasma alanine aminotransferase measurement (enzymatic activity/volume) 9 U/L 0-55 Serum or plasma protein measurement (mass/volume) 7.0 g/dL 6.4-8.2 Serum or plasma albumin measurement (mass/volume) 4.0 g/dL 3.2-4.5 CALCIUM CORRECTED 8.6 mg/dL 8.5-10.1 Blood manual differential performed dete ction - 06/24/18 19:05 Blood monocytes/100 leukocytes 12 % NRG Manual blood segmented neutrophils/100 leukocytes 60 % NRG Blood band neutrophils/100 leukocytes 0 % NRG Manual blood lymphocytes/100 leukocytes 28 % NRG Manual eosinophils/100 leukocytes in nose 0 % NRG Manual blood basophils/100 leukocytes 0 % NRG Blood hypochromia detection by light microscopy SL IGHT NRG Serum or plasma troponin i.cardiac measu rement (mass/volume) - 06/24/18 19:05 Serum or plasma troponin i.cardiac measurement (mass/v olume) < ng/mL <0.028 Bacterial blood culture - 06/24/18 19:05 Bacterial blood culture NG NRG Capillary blood glucose measurement by g lucometer (mass/volume) - 06/24/18 19:11 Capillary blood glucose measurement by glucometer (mas s/volume) 101 mg/dL 70-110 Complete urinalysis with reflex to cultu re - 06/24/18 19:16 Urine color determination YELLOW NRG Urine clarity determination CLEAR NR G Urine pH measurement by test strip 6.5 5-9 Specific gravity of urine by test strip 1.010 1.016-1.022 Urine protein assay by test strip, semi-quantitative 1+ NEGATIVE Urine glucose detection by automated test strip NE GATIVE NEGATIVE Erythrocytes detection in urine sediment by light micr oscopy NEGATIVE NEGATIVE Urine ketones detection by automated test strip NE GATIVE NEGATIVE Urine nitrite detection by test strip NEGATIVE NEGATIVE Urine total bilirubin detection by test strip NEGA TIVE NEGATIVE Urine urobilinogen measurement by automated test strip (mass/volume) NORMAL NORMAL Urine leukocyte esterase detection by dipstick 1+ NEGATIVE Automated urine sediment erythrocyte cou nt by microscopy (number/high power field) RARE NRG Automated urine sediment leukocyte count by microscopy (number/high power field) [HPF] NRG Bacteria detection in urine sediment by light microsco py NEGATIVE NRG Squamous epithelial cells detection in u rine sediment by light microscopy 2-5 NRG Crystals detection in urine sediment by light microsco py NONE NRG Casts detection in urine sediment by light microscopy NONE NRG Mucus detection in urine sediment by light microscopy NEGATIVE NRG Complete urinalysis with reflex to culture NO NRG Bacterial urine culture - 06/24/18 19:16 Bacterial urine culture NG NRG Bacterial blood culture - 06/24/18 19:19 Bacterial blood culture NG NRG Arterial blood gas measurement - 9 20:42 Blood pCO2 52 mm[Hg] 35-45 Blood pO2 90 mm[Hg] 79-93 Arterial blood bicarbonate measurement (moles/volume) 27 mmol/L 23-27 Arterial blood base excess by calculation 1.9 mmol /L -2.5-2.5 Arterial blood oxygen saturation measurement 97 % 94-100 * Inhaled oxygen flow rate 97.9 NRG Arterial blood pH measurement with patient temperature correction 7.33 7.37-7.43 Arterial blood carbon dioxide, total measurement (mole s/volume) 28.9 mmol/L 21.0-31.0 Body site R RAD NRG Assessment of wrist artery patency prior to arterial p uncture YES-POS NRG Setting of ventilation mode NO NR G Measurement of body temperature 4L NRG Serum or plasma lactate measurement (mol es/volume) - 06/24/18 22:50 Serum or plasma lactate measurement (moles/volume) 0.63 mmol/L 0.50-2.00 Complete blood count (CBC) with automate d white blood cell (WBC) differential - 06/25/18 05:41 Blood leukocytes automated count (number/volume) 4.9 10*3/uL 4.3-11.0 Blood erythrocytes automated count (number/volume) 3.11 10*6/uL 4.35-5.85 Venous blood hemoglobin measurement (mass/volume) 9.0 g/dL 13.3-17.7 Blood hematocrit (volume fraction) 28 % 40-54 Automated erythrocyte mean corpuscular volume 91 [ foz_us] 80-99 Automated erythrocyte mean corpuscular h emoglobin (mass per erythrocyte) 29 pg 25-34 Automated erythrocyte mean corpuscular h emoglobin concentration measurement (mass/volume) 32 g/dL 32-36 Automated erythrocyte distribution width ratio 14. 5 % 10.0- 14.5 Automated blood platelet count (count/volume) 198 10*3/uL 130-400 Automated blood platelet mean volume measurement 8.2 [foz_us] 7.4-10.4 Automated blood neutrophils/100 leukocytes 73 % 42-75 Automated blood lymphocytes/100 leukocytes 13 % 12-44 Blood monocytes/100 leukocytes 14 % 0-12 Automated blood eosinophils/100 leukocytes 0 % 0-10 Automated blood basophils/100 leukocytes 0 % 0-10 Blood neutrophils automated count (number/volume) 3.6 10*3 1.8-7.8 Blood lymphocytes automated count (number/volume) 0.6 10*3 1.0-4.0 Blood monocytes automated count (number/volume) 0. 7 10*3 0.0-1.0 Automated eosinophil count 0.0 10*3/uL 0 .0-0.3 Automated blood basophil count (count/volume) 0.0 10*3/uL 0.0-0.1 Comprehensive metabolic panel - 06/25/18 05:41 Serum or plasma sodium measurement (moles/volume) 136 mmol/L 135-145 Serum or plasma potassium measurement (moles/volume) 4.5 mmol/L 3.6-5.0 Serum or plasma chloride measurement (moles/volume) 104 mmol/L 98-107 Carbon dioxide 26 mmol/L 21-32 Serum or plasma anion gap determination (moles/volume) 6 mmol/L 5-14 Serum or plasma urea nitrogen measurement (mass/volume ) 9 mg/dL 7-18 Serum or plasma creatinine measurement (mass/volume) 0.71 mg/dL 0.60-1.30 Serum or plasma urea nitrogen/creatinine mass ratio 13 NRG Serum or plasma creatinine measurement w ith calculation of estimated glomerular filtration rate > NRG Serum or plasma glucose measurement (mass/volume) 96 mg/dL 70-105 Serum or plasma calcium measurement (mass/volume) 8.7 mg/dL 8.5-10.1 Serum or plasma total bilirubin measurement (mass/volu me) 0.2 mg/dL 0.1-1.0 Serum or plasma alkaline phosphatase mick surement (enzymatic activity/volume) 139 U/L 40-136 Serum or plasma aspartate aminotransfera se measurement (enzymatic activity/volume) 12 U/L 5-34 Serum or plasma alanine aminotransferase measurement (enzymatic activity/volume) 7 U/L 0-55 Serum or plasma protein measurement (mass/volume) 6.1 g/dL 6.4-8.2 Serum or plasma albumin measurement (mass/volume) 3.6 g/dL 3.2-4.5 CALCIUM CORRECTED 9.0 mg/dL 8.5-10.1 Lipid 1996 panel - 06/25/18 05:41 Serum or plasma triglyceride measurement (mass/volume) 79 mg/dL <150 Serum or plasma cholesterol measurement (mass/volume) 326 mg/dL < 200 Serum or plasma cholesterol in HDL measurement (mass/v olume) 89 mg/dL 40-60 Cholesterol in LDL [mass/volume] in serum or plasma by direct assay 205 mg/dL 1-129 Serum or plasma cholesterol in VLDL measurement (mass/ volume) 16 mg/dL 5-40 Serum or plasma lithium measurement (mol es/volume) - 06/25/18 05:41 BNP level 605.4 pg/mL <100.0 Serum or plasma carbamazepine measuremen t (mass/volume) - 06/25/18 05:41 Serum or plasma carbamazepine measurement (mass/volume ) 4.9 ug/mL 4.0-12.0 DILANTIN (PHENYTOIN) - 06/25/18 05:41 DILANTIN PHEN 17.8 % 10.0-20.0 Ammonia - 06/25/18 09:35 Ammonia 48 umol/L 11-32 THYROID STIMULATING HORMONE - 06/25/18 0 9:35 THYROID STIMULATING HORMONE 0.35 u[iU]/mL 0.35-4.94 Serum or plasma gabapentin measurement ( mass/volume) - 06/25/18 09:35 GABAPENTIN 4.6 % 2.0-20.0 Complete blood count (CBC) with automate d white blood cell (WBC) differential - 06/26/18 05:45 Blood leukocytes automated count (number/volume) 3.4 10*3/uL 4.3-11.0 Blood erythrocytes automated count (number/volume) 3.10 10*6/uL 4.35-5.85 Venous blood hemoglobin measurement (mass/volume) 9.2 g/dL 13.3-17.7 Blood hematocrit (volume fraction) 28 % 40-54 Automated erythrocyte mean corpuscular volume 91 [ foz_us] 80-99 Automated erythrocyte mean corpuscular h emoglobin (mass per erythrocyte) 30 pg 25-34 Automated erythrocyte mean corpuscular h emoglobin concentration measurement (mass/volume) 33 g/dL 32-36 Automated erythrocyte distribution width ratio 14. 1 % 10.0- 14.5 Automated blood platelet count (count/volume) 173 10*3/uL 130-400 Automated blood platelet mean volume measurement 8.5 [foz_us] 7.4-10.4 Automated blood neutrophils/100 leukocytes 62 % 42-75 Automated blood lymphocytes/100 leukocytes 19 % 12-44 Blood monocytes/100 leukocytes 19 % 0-12 Automated blood eosinophils/100 leukocytes 0 % 0-10 Automated blood basophils/100 leukocytes 0 % 0-10 Blood neutrophils automated count (number/volume) 2.1 10*3 1.8-7.8 Blood lymphocytes automated count (number/volume) 0.7 10*3 1.0-4.0 Blood monocytes automated count (number/volume) 0. 7 10*3 0.0-1.0 Automated eosinophil count 0.0 10*3/uL 0 .0-0.3 Automated blood basophil count (count/volume) 0.0 10*3/uL 0.0-0.1 Comprehensive metabolic panel - 06/26/18 05:45 Serum or plasma sodium measurement (moles/volume) 138 mmol/L 135-145 Serum or plasma potassium measurement (moles/volume) 4.0 mmol/L 3.6-5.0 Serum or plasma chloride measurement (moles/volume) 103 mmol/L 98-107 Carbon dioxide 24 mmol/L 21-32 Serum or plasma anion gap determination (moles/volume) 11 mmol/L 5-14 Serum or plasma urea nitrogen measurement (mass/volume ) 6 mg/dL 7-18 Serum or plasma creatinine measurement (mass/volume) 0.70 mg/dL 0.60-1.30 Serum or plasma urea nitrogen/creatinine mass ratio 9 NRG Serum or plasma creatinine measurement w ith calculation of estimated glomerular filtration rate > NRG Serum or plasma glucose measurement (mass/volume) 101 mg/dL 70-105 Serum or plasma calcium measurement (mass/volume) 8.3 mg/dL 8.5-10.1 Serum or plasma total bilirubin measurement (mass/volu me) 0.2 mg/dL 0.1-1.0 Serum or plasma alkaline phosphatase mikc surement (enzymatic activity/volume) 124 U/L 40-136 Serum or plasma aspartate aminotransfera se measurement (enzymatic activity/volume) 11 U/L 5-34 Serum or plasma alanine aminotransferase measurement (enzymatic activity/volume) 7 U/L 0-55 Serum or plasma protein measurement (mass/volume) 6.1 g/dL 6.4-8.2 Serum or plasma albumin measurement (mass/volume) 3.5 g/dL 3.2-4.5 CALCIUM CORRECTED 8.7 mg/dL 8.5-10.1 Complete blood count (CBC) with automate d white blood cell (WBC) differential - 07/21/18 22:35 Blood leukocytes automated count (number/volume) 5.1 10*3/uL 4.3-11.0 Blood erythrocytes automated count (number/volume) 3.67 10*6/uL 4.35-5.85 Venous blood hemoglobin measurement (mass/volume) 10.1 g/dL 13.3-17.7 Blood hematocrit (volume fraction) 32 % 40-54 Automated erythrocyte mean corpuscular volume 88 [ foz_us] 80-99 Automated erythrocyte mean corpuscular h emoglobin (mass per erythrocyte) 28 pg 25-34 Automated erythrocyte mean corpuscular h emoglobin concentration measurement (mass/volume) 31 g/dL 32-36 Automated erythrocyte distribution width ratio 13. 9 % 10.0- 14.5 Automated blood platelet count (count/volume) 239 10*3/uL 130-400 Automated blood platelet mean volume measurement 8.4 [foz_us] 7.4-10.4 Automated blood neutrophils/100 leukocytes 63 % 42-75 Automated blood lymphocytes/100 leukocytes 19 % 12-44 Blood monocytes/100 leukocytes 18 % 0-12 Automated blood eosinophils/100 leukocytes 0 % 0-10 Automated blood basophils/100 leukocytes 0 % 0-10 Blood neutrophils automated count (number/volume) 3.2 10*3 1.8-7.8 Blood lymphocytes automated count (number/volume) 1.0 10*3 1.0-4.0 Blood monocytes automated count (number/volume) 0. 9 10*3 0.0-1.0 Automated eosinophil count 0.0 10*3/uL 0 .0-0.3 Automated blood basophil count (count/volume) 0.0 10*3/uL 0.0-0.1 Blood lactic acid measurement (moles/vol ume) - 07/21/18 22:35 Blood lactic acid measurement (moles/volume) 1.21 mmol/L 0.50-2.00 PT panel in platelet poor plasma by coag ulation assay - 07/21/18 22:35 Prothrombin time (PT) in platelet poor plasma by coagu lation assay 13.0 s 12.2-14.7 INR in platelet poor plasma or blood by coagulation as say 0.9 0.8-1.4 Activated partial thromboplastin time (a PTT) in platelet poor plasma bycoagulation assay - 07/21/18 22:35 Activated partial thromboplastin time (a PTT) in platelet poor plasma bycoagulation assay 35 s 24-35 Comprehensive metabolic panel - 07/21/18 22:35 Serum or plasma sodium measurement (moles/volume) 137 mmol/L 135-145 Serum or plasma potassium measurement (moles/volume) 4.4 mmol/L 3.6-5.0 Serum or plasma chloride measurement (moles/volume) 99 mmol/L 98-107 Carbon dioxide 28 mmol/L 21-32 Serum or plasma anion gap determination (moles/volume) 10 mmol/L 5-14 Serum or plasma urea nitrogen measurement (mass/volume ) 12 mg/dL 7-18 Serum or plasma creatinine measurement (mass/volume) 0.72 mg/dL 0.60-1.30 Serum or plasma urea nitrogen/creatinine mass ratio 17 NRG Serum or plasma creatinine measurement w ith calculation of estimated glomerular filtration rate > NRG Serum or plasma glucose measurement (mass/volume) 123 mg/dL 70-105 Serum or plasma calcium measurement (mass/volume) 8.9 mg/dL 8.5-10.1 Serum or plasma total bilirubin measurement (mass/volu me) 0.2 mg/dL 0.1-1.0 Serum or plasma alkaline phosphatase mick surement (enzymatic activity/volume) 157 U/L 40-136 Serum or plasma aspartate aminotransfera se measurement (enzymatic activity/volume) 10 U/L 5-34 Serum or plasma alanine aminotransferase measurement (enzymatic activity/volume) 10 U/L 0-55 Serum or plasma protein measurement (mass/volume) 6.9 g/dL 6.4-8.2 Serum or plasma albumin measurement (mass/volume) 4.0 g/dL 3.2-4.5 CALCIUM CORRECTED 8.9 mg/dL 8.5-10.1 Magnesium - 07/21/18 22:35 Magnesium 2.1 mg/dL 1.8-2.4 Serum or plasma creatine kinase measurem ent (enzymatic activity/volume) - 07/21/18 22:35 Serum or plasma creatine kinase measurem ent (enzymatic activity/volume) 97 U/L 30-200 Serum or plasma creatine kinase MB measu rement (enzymatic activity/volume) - 07/21/18 22:35 Serum or plasma creatine kinase MB measu rement (enzymatic activity/volume) 1.9 ng/mL <6.6 Serum or plasma troponin i.cardiac measu rement (mass/volume) - 07/21/18 22:35 Serum or plasma troponin i.cardiac measurement (mass/v olume) < ng/mL <0.028 Serum or plasma lithium measurement (mol es/volume) - 07/21/18 22:35 BNP level 351.5 pg/mL <100.0 Serum or plasma carbamazepine measuremen t (mass/volume) - 07/21/18 22:35 Serum or plasma carbamazepine measurement (mass/volume ) 7.9 ug/mL 4.0-12.0 Bacterial blood culture - 07/21/18 22:35 Bacterial blood culture NG [facility] DILANTIN (PHENYTOIN) - 07/21/18 22:35 DILANTIN PHEN 16.6 % 10.0-20.0 Influenza virus A and B antigen detectio n - 07/21/18 22:40 FLU RESULT NEGATIVE FOR INFLUENZA A AND B ANTIGENS BY IA NR Bacterial blood culture - 07/21/18 22:51 Bacterial blood culture NG [facility] [place] Arterial blood gas measurement - 9 23:12 Blood pCO2 52 mm[Hg] 35-45 Blood pO2 83 mm[Hg] 79-93 Arterial blood bicarbonate measurement (moles/volume) 31 mmol/L 23-27 Arterial blood base excess by calculation 5.5 mmol /L -2.5-2.5 Arterial blood oxygen saturation measurement 96 % 94-100 * Inhaled oxygen flow rate 4L NRG Arterial blood pH measurement with patient temperature correction 7.38 7.37-7.43 Arterial blood carbon dioxide, total measurement (mole s/volume) 32.2 mmol/L 21.0-31.0 Body site LEFT RADIAL NRG Assessment of wrist artery patency prior to arterial p uncture YES-POS NRG Setting of ventilation mode NO NR G Measurement of body temperature 96.9 NRG Complete urinalysis with reflex to cultu re - 07/21/18 23:51 Urine color determination YELLOW NRG Urine clarity determination CLEAR NR G Urine pH measurement by test strip 6 5-9 Specific gravity of urine by test strip 1.015 1.016-1.022 Urine protein assay by test strip, semi-quantitative 1+ NEGATIVE Urine glucose detection by automated test strip NE GATIVE NEGATIVE Erythrocytes detection in urine sediment by light micr oscopy NEGATIVE NEGATIVE Urine ketones detection by automated test strip NE GATIVE NEGATIVE Urine nitrite detection by test strip NEGATIVE NEGATIVE Urine total bilirubin detection by test strip NEGA TIVE NEGATIVE Urine urobilinogen measurement by automated test strip (mass/volume) NORMAL NORMAL Urine leukocyte esterase detection by dipstick NEG ATIVE NEGATIVE Automated urine sediment erythrocyte cou nt by microscopy (number/high power field) NONE NRG Automated urine sediment leukocyte count by microscopy (number/high power field) NONE NRG Bacteria detection in urine sediment by light microsco py NEGATIVE NRG Squamous epithelial cells detection in u rine sediment by light microscopy 5-10 NRG Crystals detection in urine sediment by light microsco py NONE NRG Casts detection in urine sediment by light microscopy NONE NRG Mucus detection in urine sediment by light microscopy NEGATIVE NRG Complete urinalysis with reflex to culture NO NRG Complete blood count (CBC) with automate d white blood cell (WBC) differential - 07/22/18 04:30 Blood leukocytes automated count (number/volume) 6.8 10*3/uL 4.3-11.0 Blood erythrocytes automated count (number/volume) 3.88 10*6/uL 4.35-5.85 Venous blood hemoglobin measurement (mass/volume) 10.7 g/dL 13.3-17.7 Blood hematocrit (volume fraction) 34 % 40-54 Automated erythrocyte mean corpuscular volume 87 [ foz_us] 80-99 Automated erythrocyte mean corpuscular h emoglobin (mass per erythrocyte) 28 pg 25-34 Automated erythrocyte mean corpuscular h emoglobin concentration measurement (mass/volume) 32 g/dL 32-36 Automated erythrocyte distribution width ratio 14. 0 % 10.0- 14.5 Automated blood platelet count (count/volume) 250 10*3/uL 130-400 Automated blood platelet mean volume measurement 8.6 [foz_us] 7.4-10.4 Automated blood neutrophils/100 leukocytes 93 % 42-75 Automated blood lymphocytes/100 leukocytes 5 % 12-44 Blood monocytes/100 leukocytes 2 % 0-12 Automated blood eosinophils/100 leukocytes 0 % 0-10 Automated blood basophils/100 leukocytes 0 % 0-10 Blood neutrophils automated count (number/volume) 6.3 10*3 1.8-7.8 Blood lymphocytes automated count (number/volume) 0.3 10*3 1.0-4.0 Blood monocytes automated count (number/volume) 0. 2 10*3 0.0-1.0 Automated eosinophil count 0.0 10*3/uL 0 .0-0.3 Automated blood basophil count (count/volume) 0.0 10*3/uL 0.0-0.1 Comprehensive metabolic panel - 07/22/18 04:30 Serum or plasma sodium measurement (moles/volume) 136 mmol/L 135-145 Serum or plasma potassium measurement (moles/volume) 4.9 mmol/L 3.6-5.0 Serum or plasma chloride measurement (moles/volume) 95 mmol/L 98-107 Carbon dioxide 28 mmol/L 21-32 Serum or plasma anion gap determination (moles/volume) 13 mmol/L 5-14 Serum or plasma urea nitrogen measurement (mass/volume ) 13 mg/dL 7-18 Serum or plasma creatinine measurement (mass/volume) 0.79 mg/dL 0.60-1.30 Serum or plasma urea nitrogen/creatinine mass ratio 16 NRG Serum or plasma creatinine measurement w ith calculation of estimated glomerular filtration rate > NRG Serum or plasma glucose measurement (mass/volume) 144 mg/dL 70-105 Serum or plasma calcium measurement (mass/volume) 9.7 mg/dL 8.5-10.1 Serum or plasma total bilirubin measurement (mass/volu me) 0.2 mg/dL 0.1-1.0 Serum or plasma alkaline phosphatase mick surement (enzymatic activity/volume) 172 U/L 40-136 Serum or plasma aspartate aminotransfera se measurement (enzymatic activity/volume) 9 U/L 5-34 Serum or plasma alanine aminotransferase measurement (enzymatic activity/volume) 11 U/L 0-55 Serum or plasma protein measurement (mass/volume) 7.8 g/dL 6.4-8.2 Serum or plasma albumin measurement (mass/volume) 4.4 g/dL 3.2-4.5 CALCIUM CORRECTED 9.4 mg/dL 8.5-10.1 Serum or plasma phosphate measurement (m ass/volume) - 07/22/18 04:30 Serum or plasma phosphate measurement (mass/volume) 4.0 mg/dL 2.3-4.7 Magnesium - 07/22/18 04:30 Magnesium 2.2 mg/dL 1.8-2.4 PROCALCITONIN (PCT) - 07/22/18 04:30 PROCALCITONIN (PCT) 0.02 ng/mL <0.10 Complete blood count (CBC) with automate d white blood cell (WBC) differential - 07/23/18 05:30 Blood leukocytes automated count (number/volume) 6.8 10*3/uL 4.3-11.0 Blood erythrocytes automated count (number/volume) 3.64 10*6/uL 4.35-5.85 Venous blood hemoglobin measurement (mass/volume) 10.1 g/dL 13.3-17.7 Blood hematocrit (volume fraction) 32 % 40-54 Automated erythrocyte mean corpuscular volume 87 [ foz_us] 80-99 Automated erythrocyte mean corpuscular h emoglobin (mass per erythrocyte) 28 pg 25-34 Automated erythrocyte mean corpuscular h emoglobin concentration measurement (mass/volume) 32 g/dL 32-36 Automated erythrocyte distribution width ratio 14. 0 % 10.0- 14.5 Automated blood platelet count (count/volume) 248 10*3/uL 130-400 Automated blood platelet mean volume measurement 8.7 [foz_us] 7.4-10.4 Automated blood neutrophils/100 leukocytes 76 % 42-75 Automated blood lymphocytes/100 leukocytes 12 % 12-44 Blood monocytes/100 leukocytes 12 % 0-12 Automated blood eosinophils/100 leukocytes 0 % 0-10 Automated blood basophils/100 leukocytes 0 % 0-10 Blood neutrophils automated count (number/volume) 5.2 10*3 1.8-7.8 Blood lymphocytes automated count (number/volume) 0.8 10*3 1.0-4.0 Blood monocytes automated count (number/volume) 0. 8 10*3 0.0-1.0 Automated eosinophil count 0.0 10*3/uL 0 .0-0.3 Automated blood basophil count (count/volume) 0.0 10*3/uL 0.0-0.1 Whole blood basic metabolic panel - 06/30 08/16 05:30 Serum or plasma sodium measurement (moles/volume) 136 mmol/L 135-145 Serum or plasma potassium measurement (moles/volume) 4.7 mmol/L 3.6-5.0 Serum or plasma chloride measurement (moles/volume) 100 mmol/L 98-107 Carbon dioxide 27 mmol/L 21-32 Serum or plasma anion gap determination (moles/volume) 9 mmol/L 5-14 Serum or plasma urea nitrogen measurement (mass/volume ) 17 mg/dL 7-18 Serum or plasma creatinine measurement (mass/volume) 0.74 mg/dL 0.60-1.30 Serum or plasma urea nitrogen/creatinine mass ratio 23 NRG Serum or plasma creatinine measurement w ith calculation of estimated glomerular filtration rate > NRG Serum or plasma glucose measurement (mass/volume) 119 mg/dL 70-105 Serum or plasma calcium measurement (mass/volume) 8.9 mg/dL 8.5-10.1 Serum or plasma phosphate measurement (m ass/volume) - 07/23/18 05:30 Serum or plasma phosphate measurement (mass/volume) 4.0 mg/dL 2.3-4.7 Magnesium - 07/23/18 05:30 Magnesium 2.5 mg/dL 1.8-2.4 Sputum Gram stain - 07/23/18 08:10 Sputum Gram stain TNP NRG Bacteria identification in bronchial spe cimen by aerobe culture - 07/23/18 08:10 Bacteria identification in bronchial specimen by aerob e culture NG NRG Mycobacterium species detection by organ ism specific culture - 07/23/18 08:10 FTX;REPORTABLE NO ACID FAST BACILLI ISOLATED NRG [id number] AFB SMEAR REPORT OF 07/24: NEGATIVE NRG C FUNGUS SPUTUM FLUID TISSUE - 07/23/18 08:10 FUNGUS REPORT NO FUNGUS GROWTH OBSERVED NRG C FUNGUS SPUTUM FLUID TISSUE - 07/23/18 08:11 FUNGUS REPORT NO FUNGUS GROWTH OBSERVED NRG Complete blood count (CBC) with automate d white blood cell (WBC) differential - 07/24/18 04:50 Blood leukocytes automated count (number/volume) 6.7 10*3/uL 4.3-11.0 Blood erythrocytes automated count (number/volume) 3.66 10*6/uL 4.35-5.85 Venous blood hemoglobin measurement (mass/volume) 10.2 g/dL 13.3-17.7 Blood hematocrit (volume fraction) 32 % 40-54 Automated erythrocyte mean corpuscular volume 87 [ foz_us] 80-99 Automated erythrocyte mean corpuscular h emoglobin (mass per erythrocyte) 28 pg 25-34 Automated erythrocyte mean corpuscular h emoglobin concentration measurement (mass/volume) 32 g/dL 32-36 Automated erythrocyte distribution width ratio 13. 9 % 10.0- 14.5 Automated blood platelet count (count/volume) 249 10*3/uL 130-400 Automated blood platelet mean volume measurement 8.7 [foz_us] 7.4-10.4 Automated blood neutrophils/100 leukocytes 75 % 42-75 Automated blood lymphocytes/100 leukocytes 13 % 12-44 Blood monocytes/100 leukocytes 12 % 0-12 Automated blood eosinophils/100 leukocytes 0 % 0-10 Automated blood basophils/100 leukocytes 0 % 0-10 Blood neutrophils automated count (number/volume) 5.1 10*3 1.8-7.8 Blood lymphocytes automated count (number/volume) 0.9 10*3 1.0-4.0 Blood monocytes automated count (number/volume) 0. 8 10*3 0.0-1.0 Automated eosinophil count 0.0 10*3/uL 0 .0-0.3 Automated blood basophil count (count/volume) 0.0 10*3/uL 0.0-0.1 Whole blood basic metabolic panel - 06/30 09/16 04:50 Serum or plasma sodium measurement (moles/volume) 138 mmol/L 135-145 Serum or plasma potassium measurement (moles/volume) 4.1 mmol/L 3.6-5.0 Serum or plasma chloride measurement (moles/volume) 100 mmol/L 98-107 Carbon dioxide 27 mmol/L 21-32 Serum or plasma anion gap determination (moles/volume) 11 mmol/L 5-14 Serum or plasma urea nitrogen measurement (mass/volume ) 19 mg/dL 7-18 Serum or plasma creatinine measurement (mass/volume) 0.80 mg/dL 0.60-1.30 Serum or plasma urea nitrogen/creatinine mass ratio 24 NRG Serum or plasma creatinine measurement w ith calculation of estimated glomerular filtration rate > NRG Serum or plasma glucose measurement (mass/volume) 135 mg/dL 70-105 Serum or plasma calcium measurement (mass/volume) 8.9 mg/dL 8.5-10.1 Serum or plasma phosphate measurement (m ass/volume) - 07/24/18 04:50 Serum or plasma phosphate measurement (mass/volume) 3.6 mg/dL 2.3-4.7 Magnesium - 07/24/18 04:50 Magnesium 2.3 mg/dL 1.8-2.4 Sputum Gram stain - 07/24/18 06:08 Sputum Gram stain No bacteria seen NRG Bacterial sputum culture - 07/24/18 06:0 8 QUANTITY OF GROWTH . NRG Bacterial sputum culture USUAL RESP NRG Complete blood count (CBC) with automate d white blood cell (WBC) differential - 09/04/18 08:00 Blood leukocytes automated count (number/volume) 5.5 10*3/uL 4.3-11.0 Blood erythrocytes automated count (number/volume) 3.84 10*6/uL 4.35-5.85 Venous blood hemoglobin measurement (mass/volume) 10.1 g/dL 13.3-17.7 Blood hematocrit (volume fraction) 32 % 40-54 Automated erythrocyte mean corpuscular volume 84 [ foz_us] 80-99 Automated erythrocyte mean corpuscular h emoglobin (mass per erythrocyte) 26 pg 25-34 Automated erythrocyte mean corpuscular h emoglobin concentration measurement (mass/volume) 31 g/dL 32-36 Automated erythrocyte distribution width ratio 14. 5 % 10.0- 14.5 Automated blood platelet count (count/volume) 209 10*3/uL 130-400 Automated blood platelet mean volume measurement 8.6 [foz_us] 7.4-10.4 Automated blood neutrophils/100 leukocytes 74 % 42-75 Automated blood lymphocytes/100 leukocytes 11 % 12-44 Blood monocytes/100 leukocytes 15 % 0-12 Automated blood eosinophils/100 leukocytes 0 % 0-10 Automated blood basophils/100 leukocytes 0 % 0-10 Blood neutrophils automated count (number/volume) 4.1 10*3 1.8-7.8 Blood lymphocytes automated count (number/volume) 0.6 10*3 1.0-4.0 Blood monocytes automated count (number/volume) 0. 8 10*3 0.0-1.0 Automated eosinophil count 0.0 10*3/uL 0 .0-0.3 Automated blood basophil count (count/volume) 0.0 10*3/uL 0.0-0.1 Comprehensive metabolic panel - 09/04/18 08:00 Serum or plasma sodium measurement (moles/volume) 135 mmol/L 135-145 Serum or plasma potassium measurement (moles/volume) 4.5 mmol/L 3.6-5.0 Serum or plasma chloride measurement (moles/volume) 98 mmol/L 98-107 Carbon dioxide 29 mmol/L 21-32 Serum or plasma anion gap determination (moles/volume) 8 mmol/L 5-14 Serum or plasma urea nitrogen measurement (mass/volume ) 11 mg/dL 7-18 Serum or plasma creatinine measurement (mass/volume) 0.72 mg/dL 0.60-1.30 Serum or plasma urea nitrogen/creatinine mass ratio 15 NRG Serum or plasma creatinine measurement w ith calculation of estimated glomerular filtration rate > NRG Serum or plasma glucose measurement (mass/volume) 114 mg/dL 70-105 Serum or plasma calcium measurement (mass/volume) 8.8 mg/dL 8.5-10.1 Serum or plasma total bilirubin measurement (mass/volu me) 0.2 mg/dL 0.1-1.0 Serum or plasma alkaline phosphatase mick surement (enzymatic activity/volume) 156 U/L 40-136 Serum or plasma aspartate aminotransfera se measurement (enzymatic activity/volume) 12 U/L 5-34 Serum or plasma alanine aminotransferase measurement (enzymatic activity/volume) 11 U/L 0-55 Serum or plasma protein measurement (mass/volume) 6.7 g/dL 6.4-8.2 Serum or plasma albumin measurement (mass/volume) 4.0 g/dL 3.2-4.5 CALCIUM CORRECTED 8.8 mg/dL 8.5-10.1 DILANTIN (PHENYTOIN) - 09/04/18 08:00 DILANTIN PHEN 18.0 % 10.0-20.0 Complete urinalysis with reflex to cultu re - 09/04/18 08:54 Urine color determination YELLOW NRG Urine clarity determination CLEAR NR G Urine pH measurement by test strip 7 5-9 Specific gravity of urine by test strip 1.010 1.016-1.022 Urine protein assay by test strip, semi-quantitative NEGATIVE NEGATIVE Urine glucose detection by automated test strip NE GATIVE NEGATIVE Erythrocytes detection in urine sediment by light micr oscopy NEGATIVE NEGATIVE Urine ketones detection by automated test strip NE GATIVE NEGATIVE Urine nitrite detection by test strip NEGATIVE NEGATIVE Urine total bilirubin detection by test strip NEGA TIVE NEGATIVE Urine urobilinogen measurement by automated test strip (mass/volume) NORMAL NORMAL Urine leukocyte esterase detection by dipstick NEG ATIVE NEGATIVE Automated urine sediment erythrocyte cou nt by microscopy (number/high power field) NONE NRG Automated urine sediment leukocyte count by microscopy (number/high power field) NONE NRG Bacteria detection in urine sediment by light microsco py NEGATIVE NRG Squamous epithelial cells detection in u rine sediment by light microscopy RARE NRG Crystals detection in urine sediment by light microsco py NONE NRG Casts detection in urine sediment by light microscopy NONE NRG Mucus detection in urine sediment by light microscopy NEGATIVE NRG Complete urinalysis with reflex to culture NO NRG Arterial blood gas measurement - 9 17:20 Blood pCO2 57 mm[Hg] 35-45 Blood pO2 94 mm[Hg] 79-93 Arterial blood bicarbonate measurement (moles/volume) 31 mmol/L 23-27 Arterial blood base excess by calculation 5.3 mmol /L -2.5-2.5 Arterial blood oxygen saturation measurement 94 % 94-100 * Inhaled oxygen flow rate 3L NRG Arterial blood pH measurement with patient temperature correction 7.35 7.37-7.43 Arterial blood carbon dioxide, total measurement (mole s/volume) 32.6 mmol/L 21.0-31.0 Body site R RAD NRG Assessment of wrist artery patency prior to arterial p uncture YES-POS NRG Setting of ventilation mode NO NR G Measurement of body temperature 97.9 NRG Complete blood count (CBC) with automate d white blood cell (WBC) differential - 09/04/18 17:38 Blood leukocytes automated count (number/volume) 7.0 10*3/uL 4.3-11.0 Blood erythrocytes automated count (number/volume) 3.95 10*6/uL 4.35-5.85 Venous blood hemoglobin measurement (mass/volume) 10.4 g/dL 13.3-17.7 Blood hematocrit (volume fraction) 33 % 40-54 Automated erythrocyte mean corpuscular volume 84 [ foz_us] 80-99 Automated erythrocyte mean corpuscular h emoglobin (mass per erythrocyte) 26 pg 25-34 Automated erythrocyte mean corpuscular h emoglobin concentration measurement (mass/volume) 32 g/dL 32-36 Automated erythrocyte distribution width ratio 14. 7 % 10.0- 14.5 Automated blood platelet count (count/volume) 221 10*3/uL 130-400 Automated blood platelet mean volume measurement 8.8 [foz_us] 7.4-10.4 Automated blood neutrophils/100 leukocytes 72 % 42-75 Automated blood lymphocytes/100 leukocytes 14 % 12-44 Blood monocytes/100 leukocytes 15 % 0-12 Automated blood eosinophils/100 leukocytes 0 % 0-10 Automated blood basophils/100 leukocytes 0 % 0-10 Blood neutrophils automated count (number/volume) 5.0 10*3 1.8-7.8 Blood lymphocytes automated count (number/volume) 0.9 10*3 1.0-4.0 Blood monocytes automated count (number/volume) 1. 0 10*3 0.0-1.0 Automated eosinophil count 0.0 10*3/uL 0 .0-0.3 Automated blood basophil count (count/volume) 0.0 10*3/uL 0.0-0.1 Whole blood basic metabolic panel - 10/16 17:38 Serum or plasma sodium measurement (moles/volume) 133 mmol/L 135-145 Serum or plasma potassium measurement (moles/volume) 4.3 mmol/L 3.6-5.0 Serum or plasma chloride measurement (moles/volume) 97 mmol/L 98-107 Carbon dioxide 29 mmol/L 21-32 Serum or plasma anion gap determination (moles/volume) 7 mmol/L 5-14 Serum or plasma urea nitrogen measurement (mass/volume ) 11 mg/dL 7-18 Serum or plasma creatinine measurement (mass/volume) 0.71 mg/dL 0.60-1.30 Serum or plasma urea nitrogen/creatinine mass ratio 15 NRG Serum or plasma creatinine measurement w ith calculation of estimated glomerular filtration rate > NRG Serum or plasma glucose measurement (mass/volume) 121 mg/dL 70-105 Serum or plasma calcium measurement (mass/volume) 8.6 mg/dL 8.5-10.1 Complete blood count (CBC) with automate d white blood cell (WBC) differential - 09/05/18 05:40 Blood leukocytes automated count (number/volume) 5.3 10*3/uL 4.3-11.0 Blood erythrocytes automated count (number/volume) 3.61 10*6/uL 4.35-5.85 Venous blood hemoglobin measurement (mass/volume) 9.3 g/dL 13.3-17.7 Blood hematocrit (volume fraction) 30 % 40-54 Automated erythrocyte mean corpuscular volume 84 [ foz_us] 80-99 Automated erythrocyte mean corpuscular h emoglobin (mass per erythrocyte) 26 pg 25-34 Automated erythrocyte mean corpuscular h emoglobin concentration measurement (mass/volume) 31 g/dL 32-36 Automated erythrocyte distribution width ratio 14. 9 % 10.0- 14.5 Automated blood platelet count (count/volume) 198 10*3/uL 130-400 Automated blood platelet mean volume measurement 9.1 [foz_us] 7.4-10.4 Automated blood neutrophils/100 leukocytes 88 % 42-75 Automated blood lymphocytes/100 leukocytes 7 % 12-44 Blood monocytes/100 leukocytes 5 % 0-12 Automated blood eosinophils/100 leukocytes 0 % 0-10 Automated blood basophils/100 leukocytes 0 % 0-10 Blood neutrophils automated count (number/volume) 4.7 10*3 1.8-7.8 Blood lymphocytes automated count (number/volume) 0.4 10*3 1.0-4.0 Blood monocytes automated count (number/volume) 0. 3 10*3 0.0-1.0 Automated eosinophil count 0.0 10*3/uL 0 .0-0.3 Automated blood basophil count (count/volume) 0.0 10*3/uL 0.0-0.1 Whole blood basic metabolic panel - 11/16 05:40 Serum or plasma sodium measurement (moles/volume) 138 mmol/L 135-145 Serum or plasma potassium measurement (moles/volume) 4.8 mmol/L 3.6-5.0 Serum or plasma chloride measurement (moles/volume) 104 mmol/L 98-107 Carbon dioxide 27 mmol/L 21-32 Serum or plasma anion gap determination (moles/volume) 7 mmol/L 5-14 Serum or plasma urea nitrogen measurement (mass/volume ) 9 mg/dL 7-18 Serum or plasma creatinine measurement (mass/volume) 0.69 mg/dL 0.60-1.30 Serum or plasma urea nitrogen/creatinine mass ratio 13 NRG Serum or plasma creatinine measurement w ith calculation of estimated glomerular filtration rate > NRG Serum or plasma glucose measurement (mass/volume) 116 mg/dL 70-105 Serum or plasma calcium measurement (mass/volume) 8.8 mg/dL 8.5-10.1 Manual absolute plasma cell count - 0611/16 05:40 Blood monocytes/100 leukocytes 3 % NRG Manual blood segmented neutrophils/100 leukocytes 90 % NRG Manual blood lymphocytes/100 leukocytes 7 % NRG Complete blood count (CBC) with automate d white blood cell (WBC) differential - 09/07/18 06:00 Blood leukocytes automated count (number/volume) 6.1 10*3/uL 4.3-11.0 Blood erythrocytes automated count (number/volume) 3.94 10*6/uL 4.35-5.85 Venous blood hemoglobin measurement (mass/volume) 10.4 g/dL 13.3-17.7 Blood hematocrit (volume fraction) 33 % 40-54 Automated erythrocyte mean corpuscular volume 83 [ foz_us] 80-99 Automated erythrocyte mean corpuscular h emoglobin (mass per erythrocyte) 26 pg 25-34 Automated erythrocyte mean corpuscular h emoglobin concentration measurement (mass/volume) 32 g/dL 32-36 Automated erythrocyte distribution width ratio 15. 0 % 10.0- 14.5 Automated blood platelet count (count/volume) 214 10*3/uL 130-400 Automated blood platelet mean volume measurement 9.1 [foz_us] 7.4-10.4 Automated blood neutrophils/100 leukocytes 77 % 42-75 Automated blood lymphocytes/100 leukocytes 12 % 12-44 Blood monocytes/100 leukocytes 11 % 0-12 Automated blood eosinophils/100 leukocytes 0 % 0-10 Automated blood basophils/100 leukocytes 0 % 0-10 Blood neutrophils automated count (number/volume) 4.7 10*3 1.8-7.8 Blood lymphocytes automated count (number/volume) 0.7 10*3 1.0-4.0 Blood monocytes automated count (number/volume) 0. 7 10*3 0.0-1.0 Automated eosinophil count 0.0 10*3/uL 0 .0-0.3 Automated blood basophil count (count/volume) 0.0 10*3/uL 0.0-0.1 Comprehensive metabolic panel - 09/07/18 06:00 Serum or plasma sodium measurement (moles/volume) 133 mmol/L 135-145 Serum or plasma potassium measurement (moles/volume) 4.3 mmol/L 3.6-5.0 Serum or plasma chloride measurement (moles/volume) 97 mmol/L 98-107 Carbon dioxide 26 mmol/L 21-32 Serum or plasma anion gap determination (moles/volume) 10 mmol/L 5-14 Serum or plasma urea nitrogen measurement (mass/volume ) 12 mg/dL 7-18 Serum or plasma creatinine measurement (mass/volume) 0.72 mg/dL 0.60-1.30 Serum or plasma urea nitrogen/creatinine mass ratio 17 NRG Serum or plasma creatinine measurement w ith calculation of estimated glomerular filtration rate > NRG Serum or plasma glucose measurement (mass/volume) 123 mg/dL 70-105 Serum or plasma calcium measurement (mass/volume) 8.9 mg/dL 8.5-10.1 Serum or plasma total bilirubin measurement (mass/volu me) 0.2 mg/dL 0.1-1.0 Serum or plasma alkaline phosphatase mick surement (enzymatic activity/volume) 144 U/L 40-136 Serum or plasma aspartate aminotransfera se measurement (enzymatic activity/volume) 12 U/L 5-34 Serum or plasma alanine aminotransferase measurement (enzymatic activity/volume) 12 U/L 0-55 Serum or plasma protein measurement (mass/volume) 6.8 g/dL 6.4-8.2 Serum or plasma albumin measurement (mass/volume) 4.0 g/dL 3.2-4.5 CALCIUM CORRECTED 8.9 mg/dL 8.5-10.1 Bacterial blood culture - 10/05/18 03:20 Bacterial blood culture NG NRG Complete blood count (CBC) with automate d white blood cell (WBC) differential - 10/05/18 03:30 Blood leukocytes automated count (number/volume) 15.3 10*3/uL 4.3-11.0 Blood erythrocytes automated count (number/volume) 4.60 10*6/uL 4.35-5.85 Venous blood hemoglobin measurement (mass/volume) 12.0 g/dL 13.3-17.7 Blood hematocrit (volume fraction) 37 % 40-54 Automated erythrocyte mean corpuscular volume 81 [ foz_us] 80-99 Automated erythrocyte mean corpuscular h emoglobin (mass per erythrocyte) 26 pg 25-34 Automated erythrocyte mean corpuscular h emoglobin concentration measurement (mass/volume) 32 g/dL 32-36 Automated erythrocyte distribution width ratio 16. 6 % 10.0- 14.5 Automated blood platelet count (count/volume) 317 10*3/uL 130-400 Automated blood platelet mean volume measurement 8.4 [foz_us] 7.4-10.4 Automated blood neutrophils/100 leukocytes 86 % 42-75 Automated blood lymphocytes/100 leukocytes 7 % 12-44 Blood monocytes/100 leukocytes 7 % 0-12 Automated blood eosinophils/100 leukocytes 0 % 0-10 Automated blood basophils/100 leukocytes 0 % 0-10 Blood neutrophils automated count (number/volume) 13.2 10*3 1.8-7.8 Blood lymphocytes automated count (number/volume) 1.0 10*3 1.0-4.0 Blood monocytes automated count (number/volume) 1. 1 10*3 0.0-1.0 Automated eosinophil count 0.0 10*3/uL 0 .0-0.3 Automated blood basophil count (count/volume) 0.0 10*3/uL 0.0-0.1 Arterial blood gas measurement - 9 03:30 Blood pCO2 45 mm[Hg] 35-45 Blood pO2 69 mm[Hg] 79-93 Arterial blood bicarbonate measurement (moles/volume) 28 mmol/L 23-27 Arterial blood base excess by calculation 3.9 mmol /L -2.5-2.5 Arterial blood oxygen saturation measurement 92 % 94-100 * Inhaled oxygen flow rate 40% BIPAP NR G Arterial blood pH measurement with patient temperature correction 7.41 7.37-7.43 Arterial blood carbon dioxide, total measurement (mole s/volume) 29.3 mmol/L 21.0-31.0 Body site RIGHT TADIAL NRG Assessment of wrist artery patency prior to arterial p uncture POSITIVE NRG Setting of ventilation mode NO NR G Measurement of body temperature 100.9 NRG Blood lactic acid measurement (moles/vol ume) - 10/05/18 03:30 Blood lactic acid measurement (moles/volume) 1.65 mmol/L 0.50-2.00 Comprehensive metabolic panel - 10/05/18 03:30 Serum or plasma sodium measurement (moles/volume) 134 mmol/L 135-145 Serum or plasma potassium measurement (moles/volume) 4.6 mmol/L 3.6-5.0 Serum or plasma chloride measurement (moles/volume) 96 mmol/L 98-107 Carbon dioxide 28 mmol/L 21-32 Serum or plasma anion gap determination (moles/volume) 10 mmol/L 5-14 Serum or plasma urea nitrogen measurement (mass/volume ) 13 mg/dL 7-18 Serum or plasma creatinine measurement (mass/volume) 0.83 mg/dL 0.60-1.30 Serum or plasma urea nitrogen/creatinine mass ratio 16 NRG Serum or plasma creatinine measurement w ith calculation of estimated glomerular filtration rate > NRG Serum or plasma glucose measurement (mass/volume) 140 mg/dL 70-105 Serum or plasma calcium measurement (mass/volume) 9.3 mg/dL 8.5-10.1 Serum or plasma total bilirubin measurement (mass/volu me) 0.2 mg/dL 0.1-1.0 Serum or plasma alkaline phosphatase mick surement (enzymatic activity/volume) 166 U/L 40-136 Serum or plasma aspartate aminotransfera se measurement (enzymatic activity/volume) 12 U/L 5-34 Serum or plasma alanine aminotransferase measurement (enzymatic activity/volume) 11 U/L 0-55 Serum or plasma protein measurement (mass/volume) 7.8 g/dL 6.4-8.2 Serum or plasma albumin measurement (mass/volume) 4.4 g/dL 3.2-4.5 CALCIUM CORRECTED 9.0 mg/dL 8.5-10.1 Serum or plasma C reactive protein measu rement (mass/volume) - 10/05/18 03:30 Serum or plasma C reactive protein measurement (mass/v olume) 4.88 mg/dL 0.00-0.50 PT panel in platelet poor plasma by coag ulation assay - 10/05/18 03:30 Prothrombin time (PT) in platelet poor plasma by coagu lation assay 13.0 s 12.2-14.7 INR in platelet poor plasma or blood by coagulation as say 0.9 0.8-1.4 Activated partial thromboplastin time (a PTT) in platelet poor plasma bycoagulation assay - 10/05/18 03:30 Activated partial thromboplastin time (a PTT) in platelet poor plasma bycoagulation assay 38 s 24-35 Serum or plasma lithium measurement (mol es/volume) - 10/05/18 03:30 BNP PT 171.2 pg/mL <100.0 Manual absolute plasma cell count - 11/16 03:30 Blood monocytes/100 leukocytes 7 % NRG Manual blood segmented neutrophils/100 leukocytes 88 % NRG Manual blood lymphocytes/100 leukocytes 5 % NRG Blood anisocytosis detection by light microscopy S LIGHT NRG Bacterial blood culture - 10/05/18 03:30 Bacterial blood culture NG NRG Complete urinalysis with reflex to cultu re - 10/05/18 03:55 Urine color determination YELLOW NRG Urine clarity determination CLEAR NR G Urine pH measurement by test strip 7 5-9 Specific gravity of urine by test strip 1.010 1.016-1.022 Urine protein assay by test strip, semi-quantitative 2+ NEGATIVE Urine glucose detection by automated test strip NE GATIVE NEGATIVE Erythrocytes detection in urine sediment by light micr oscopy NEGATIVE NEGATIVE Urine ketones detection by automated test strip NE GATIVE NEGATIVE Urine nitrite detection by test strip NEGATIVE NEGATIVE Urine total bilirubin detection by test strip NEGA TIVE NEGATIVE Urine urobilinogen measurement by automated test strip (mass/volume) NORMAL NORMAL Urine leukocyte esterase detection by dipstick 1+ NEGATIVE Automated urine sediment erythrocyte cou nt by microscopy (number/high power field) NONE NRG Automated urine sediment leukocyte count by microscopy (number/high power field) RARE NRG Bacteria detection in urine sediment by light microsco py TRACE NRG Squamous epithelial cells detection in u rine sediment by light microscopy 0-2 NRG Crystals detection in urine sediment by light microsco py NONE NRG Casts detection in urine sediment by light microscopy NONE NRG Mucus detection in urine sediment by light microscopy NEGATIVE NRG Complete urinalysis with reflex to culture CULTURE PENDING NRG Bacterial urine culture - 10/05/18 03:55 Bacterial urine culture 3 OR MORE NRG COLONY COUNT 20,000 CFU/ML NRG FTX;REPORTABLE (GRAM POSITIVE) SUGGESTING PROBABLE NRG FREE TEXT ENTRY 2 COLLECTION CONTAMINATION WITH SK IN MAGED NRG FREE TEXT ENTRY 3 NO SUSCEPTIBILITY PERFORMED NRG Serum or plasma carbamazepine measuremen t (mass/volume) - 11/17/18 15:50 Serum or plasma carbamazepine measurement (mass/volume ) 5.8 ug/mL 4.0-12.0 DILANTIN (PHENYTOIN) - 11/17/18 15:50 DILANTIN PHEN 14.8 % 10.0-20.0 Complete blood count (CBC) with automate d white blood cell (WBC) differential - 11/25/18 16:40 Blood leukocytes automated count (number/volume) 7.9 10*3/uL 4.3-11.0 Blood erythrocytes automated count (number/volume) 4.06 10*6/uL 4.35-5.85 Venous blood hemoglobin measurement (mass/volume) 11.4 g/dL 13.3-17.7 Blood hematocrit (volume fraction) 34 % 40-54 Automated erythrocyte mean corpuscular volume 84 [ foz_us] 80-99 Automated erythrocyte mean corpuscular h emoglobin (mass per erythrocyte) 28 pg 25-34 Automated erythrocyte mean corpuscular h emoglobin concentration measurement (mass/volume) 33 g/dL 32-36 Automated erythrocyte distribution width ratio 18. 2 % 10.0- 14.5 Automated blood platelet count (count/volume) 235 10*3/uL 130-400 Automated blood platelet mean volume measurement 8.7 [foz_us] 7.4-10.4 Automated blood neutrophils/100 leukocytes 72 % 42-75 Automated blood lymphocytes/100 leukocytes 10 % 12-44 Blood monocytes/100 leukocytes 17 % 0-12 Automated blood eosinophils/100 leukocytes 0 % 0-10 Automated blood basophils/100 leukocytes 0 % 0-10 Blood neutrophils automated count (number/volume) 5.7 10*3 1.8-7.8 Blood lymphocytes automated count (number/volume) 0.8 10*3 1.0-4.0 Blood monocytes automated count (number/volume) 1. 4 10*3 0.0-1.0 Automated eosinophil count 0.0 10*3/uL 0 .0-0.3 Automated blood basophil count (count/volume) 0.0 10*3/uL 0.0-0.1 Comprehensive metabolic panel - 11/25/18 16:40 Serum or plasma sodium measurement (moles/volume) 131 mmol/L 135-145 Serum or plasma potassium measurement (moles/volume) 4.6 mmol/L 3.6-5.0 Serum or plasma chloride measurement (moles/volume) 95 mmol/L 98-107 Carbon dioxide 30 mmol/L 21-32 Serum or plasma anion gap determination (moles/volume) 6 mmol/L 5-14 Serum or plasma urea nitrogen measurement (mass/volume ) 10 mg/dL 7-18 Serum or plasma creatinine measurement (mass/volume) 0.71 mg/dL 0.60-1.30 Serum or plasma urea nitrogen/creatinine mass ratio 14 NRG Serum or plasma creatinine measurement w ith calculation of estimated glomerular filtration rate > NRG Serum or plasma glucose measurement (mass/volume) 120 mg/dL 70-105 Serum or plasma calcium measurement (mass/volume) 8.9 mg/dL 8.5-10.1 Serum or plasma total bilirubin measurement (mass/volu me) 0.2 mg/dL 0.1-1.0 Serum or plasma alkaline phosphatase mick surement (enzymatic activity/volume) 174 U/L 40-136 Serum or plasma aspartate aminotransfera se measurement (enzymatic activity/volume) 14 U/L 5-34 Serum or plasma alanine aminotransferase measurement (enzymatic activity/volume) 14 U/L 0-55 Serum or plasma protein measurement (mass/volume) 7.2 g/dL 6.4-8.2 Serum or plasma albumin measurement (mass/volume) 4.2 g/dL 3.2-4.5 CALCIUM CORRECTED 8.7 mg/dL 8.5-10.1 Complete blood count (CBC) with automate d white blood cell (WBC) differential - 12/01/18 02:25 Blood leukocytes automated count (number/volume) 7.4 10*3/uL 4.3-11.0 Blood erythrocytes automated count (number/volume) 4.03 10*6/uL 4.35-5.85 Venous blood hemoglobin measurement (mass/volume) 11.4 g/dL 13.3-17.7 Blood hematocrit (volume fraction) 35 % 40-54 Automated erythrocyte mean corpuscular volume 86 [ foz_us] 80-99 Automated erythrocyte mean corpuscular h emoglobin (mass per erythrocyte) 28 pg 25-34 Automated erythrocyte mean corpuscular h emoglobin concentration measurement (mass/volume) 33 g/dL 32-36 Automated erythrocyte distribution width ratio 18. 4 % 10.0- 14.5 Automated blood platelet count (count/volume) 195 10*3/uL 130-400 Automated blood platelet mean volume measurement 8.8 [foz_us] 7.4-10.4 Automated blood neutrophils/100 leukocytes 73 % 42-75 Automated blood lymphocytes/100 leukocytes 12 % 12-44 Blood monocytes/100 leukocytes 15 % 0-12 Automated blood eosinophils/100 leukocytes 0 % 0-10 Automated blood basophils/100 leukocytes 0 % 0-10 Blood neutrophils automated count (number/volume) 5.3 10*3 1.8-7.8 Blood lymphocytes automated count (number/volume) 0.9 10*3 1.0-4.0 Blood monocytes automated count (number/volume) 1. 1 10*3 0.0-1.0 Automated eosinophil count 0.0 10*3/uL 0 .0-0.3 Automated blood basophil count (count/volume) 0.0 10*3/uL 0.0-0.1 Influenza virus A and B antigen detectio n - 12/01/18 02:25 FLU RESULT NEGATIVE FOR INFLUENZA A AND B ANTIGENS BY [place] [facility] [place] Comprehensive metabolic panel - 12/01/18 02:25 Serum or plasma sodium measurement (moles/volume) 134 mmol/L 135-145 Serum or plasma potassium measurement (moles/volume) 4.4 mmol/L 3.6-5.0 Serum or plasma chloride measurement (moles/volume) 97 mmol/L 98-107 Carbon dioxide 27 mmol/L 21-32 Serum or plasma anion gap determination (moles/volume) 10 mmol/L 5-14 Serum or plasma urea nitrogen measurement (mass/volume ) 11 mg/dL 7-18 Serum or plasma creatinine measurement (mass/volume) 0.82 mg/dL 0.60-1.30 Serum or plasma urea nitrogen/creatinine mass ratio 13 NRG Serum or plasma creatinine measurement w ith calculation of estimated glomerular filtration rate > NRG Serum or plasma glucose measurement (mass/volume) 117 mg/dL 70-105 Serum or plasma calcium measurement (mass/volume) 8.8 mg/dL 8.5-10.1 Serum or plasma total bilirubin measurement (mass/volu me) 0.2 mg/dL 0.1-1.0 Serum or plasma alkaline phosphatase mick surement (enzymatic activity/volume) 189 U/L 40-136 Serum or plasma aspartate aminotransfera se measurement (enzymatic activity/volume) 18 U/L 5-34 Serum or plasma alanine aminotransferase measurement (enzymatic activity/volume) 17 U/L 0-55 Serum or plasma protein measurement (mass/volume) 7.2 g/dL 6.4-8.2 Serum or plasma albumin measurement (mass/volume) 4.3 g/dL 3.2-4.5 CALCIUM CORRECTED 8.6 mg/dL 8.5-10.1 Serum or plasma C reactive protein measu rement (mass/volume) - 12/01/18 02:25 Serum or plasma C reactive protein measurement (mass/v olume) 3.15 mg/dL 0.00-0.50 Serum or plasma lithium measurement (mol es/volume) - 12/01/18 02:25 BNP PT 161.4 pg/mL <100.0 Arterial blood gas measurement - 9 02:26 Blood pCO2 50 mm[Hg] 35-45 Blood pO2 75 mm[Hg] 79-93 Arterial blood bicarbonate measurement (moles/volume) 29 mmol/L 23-27 Arterial blood base excess by calculation 4.4 mmol /L -2.5-2.5 Arterial blood oxygen saturation measurement 95 % 94-100 * Inhaled oxygen flow rate 3 NRG Arterial blood pH measurement with patient temperature correction 7.38 7.37-7.43 Arterial blood carbon dioxide, total measurement (mole s/volume) 30.9 mmol/L 21.0-31.0 Body site RIGHT RADIAL NRG Assessment of wrist artery patency prior to arterial p uncture POSITIVE NRG Setting of ventilation mode NO NR G Measurement of body temperature 97.4 NRG Arterial blood gas measurement - 9 04:03 Blood pCO2 51 mm[Hg] 35-45 Blood pO2 79 mm[Hg] 79-93 Arterial blood bicarbonate measurement (moles/volume) 28 mmol/L 23-27 Arterial blood base excess by calculation 3.0 mmol /L -2.5-2.5 Arterial blood oxygen saturation measurement 94 % 94-100 * Inhaled oxygen flow rate 3 NRG Arterial blood pH measurement with patient temperature correction 7.36 7.37-7.43 Arterial blood carbon dioxide, total measurement (mole s/volume) 29.8 mmol/L 21.0-31.0 Body site RIGHT RADIAL NRG Assessment of wrist artery patency prior to arterial p uncture POSITIVE NRG Setting of ventilation mode NO NR G Measurement of body temperature 97.3 NRG Complete blood count (CBC) with automate d white blood cell (WBC) differential - 02/18/19 13:00 Blood leukocytes automated count (number/volume) 18.1 10*3/uL 4.3-11.0 Blood erythrocytes automated count (number/volume) 4.59 10*6/uL 4.35-5.85 Venous blood hemoglobin measurement (mass/volume) 13.3 g/dL 13.3-17.7 Blood hematocrit (volume fraction) 40 % 40-54 Automated erythrocyte mean corpuscular volume 88 [ foz_us] 80-99 Automated erythrocyte mean corpuscular h emoglobin (mass per erythrocyte) 29 pg 25-34 Automated erythrocyte mean corpuscular h emoglobin concentration measurement (mass/volume) 33 g/dL 32-36 Automated erythrocyte distribution width ratio 14. 6 % 10.0- 14.5 Automated blood platelet count (count/volume) 284 10*3/uL 130-400 Automated blood platelet mean volume measurement 8.8 [foz_us] 7.4-10.4 Automated blood neutrophils/100 leukocytes 85 % 42-75 Automated blood lymphocytes/100 leukocytes 5 % 12-44 Blood monocytes/100 leukocytes 10 % 0-12 Automated blood eosinophils/100 leukocytes 0 % 0-10 Automated blood basophils/100 leukocytes 0 % 0-10 Blood neutrophils automated count (number/volume) 15.4 10*3 1.8-7.8 Blood lymphocytes automated count (number/volume) 0.9 10*3 1.0-4.0 Blood monocytes automated count (number/volume) 1. 8 10*3 0.0-1.0 Automated eosinophil count 0.0 10*3/uL 0 .0-0.3 Automated blood basophil count (count/volume) 0.0 10*3/uL 0.0-0.1 Comprehensive metabolic panel - 02/18/19 13:00 Serum or plasma sodium measurement (moles/volume) 133 mmol/L 135-145 Serum or plasma potassium measurement (moles/volume) 4.4 mmol/L 3.6-5.0 Serum or plasma chloride measurement (moles/volume) 93 mmol/L 98-107 Carbon dioxide 29 mmol/L 21-32 Serum or plasma anion gap determination (moles/volume) 11 mmol/L 5-14 Serum or plasma urea nitrogen measurement (mass/volume ) 10 mg/dL 7-18 Serum or plasma creatinine measurement (mass/volume) 0.77 mg/dL 0.60-1.30 Serum or plasma urea nitrogen/creatinine mass ratio 13 NRG Serum or plasma creatinine measurement w ith calculation of estimated glomerular filtration rate > NRG Serum or plasma glucose measurement (mass/volume) 113 mg/dL 70-105 Serum or plasma calcium measurement (mass/volume) 9.7 mg/dL 8.5-10.1 Serum or plasma total bilirubin measurement (mass/volu me) 0.5 mg/dL 0.1-1.0 Serum or plasma alkaline phosphatase imck surement (enzymatic activity/volume) 196 U/L 40-136 Serum or plasma aspartate aminotransfera se measurement (enzymatic activity/volume) 15 U/L 5-34 Serum or plasma alanine aminotransferase measurement (enzymatic activity/volume) 16 U/L 0-55 Serum or plasma protein measurement (mass/volume) 8.1 g/dL 6.4-8.2 Serum or plasma albumin measurement (mass/volume) 4.6 g/dL 3.2-4.5 Serum or plasma troponin i.cardiac measu rement (mass/volume) - 02/18/19 13:00 Serum or plasma troponin i.cardiac measurement (mass/v olume) < ng/mL <0.028 Manual absolute plasma cell count - 01/30 04/18 13:00 Blood monocytes/100 leukocytes 10 % NRG Manual blood segmented neutrophils/100 leukocytes 80 % NRG Blood band neutrophils/100 leukocytes 2 % NRG Manual blood lymphocytes/100 leukocytes 8 % NRG Manual eosinophils/100 leukocytes in nose 0 % NRG Manual blood basophils/100 leukocytes 0 % NRG Blood erythrocyte morphology finding identification NORMAL NRG Capillary blood glucose measurement by g lucometer (mass/volume) - 02/18/19 13:05 Capillary blood glucose measurement by glucometer (mas s/volume) 121 mg/dL 70-110 Complete blood count (CBC) with automate d white blood cell (WBC) differential - 02/19/19 05:15 Blood leukocytes automated count (number/volume) 13.7 10*3/uL 4.3-11.0 Blood erythrocytes automated count (number/volume) 3.84 10*6/uL 4.35-5.85 Venous blood hemoglobin measurement (mass/volume) 11.0 g/dL 13.3-17.7 Blood hematocrit (volume fraction) 34 % 40-54 Automated erythrocyte mean corpuscular volume 88 [ foz_us] 80-99 Automated erythrocyte mean corpuscular h emoglobin (mass per erythrocyte) 29 pg 25-34 Automated erythrocyte mean corpuscular h emoglobin concentration measurement (mass/volume) 33 g/dL 32-36 Automated erythrocyte distribution width ratio 14. 3 % 10.0- 14.5 Automated blood platelet count (count/volume) 252 10*3/uL 130-400 Automated blood platelet mean volume measurement 8.4 [foz_us] 7.4-10.4 Automated blood neutrophils/100 leukocytes 82 % 42-75 Automated blood lymphocytes/100 leukocytes 6 % 12-44 Blood monocytes/100 leukocytes 13 % 0-12 Automated blood eosinophils/100 leukocytes 0 % 0-10 Automated blood basophils/100 leukocytes 0 % 0-10 Blood neutrophils automated count (number/volume) 11.2 10*3 1.8-7.8 Blood lymphocytes automated count (number/volume) 0.8 10*3 1.0-4.0 Blood monocytes automated count (number/volume) 1. 8 10*3 0.0-1.0 Automated eosinophil count 0.0 10*3/uL 0 .0-0.3 Automated blood basophil count (count/volume) 0.0 10*3/uL 0.0-0.1 Comprehensive metabolic panel - 02/19/19 05:15 Serum or plasma sodium measurement (moles/volume) 132 mmol/L 135-145 Serum or plasma potassium measurement (moles/volume) 4.0 mmol/L 3.6-5.0 Serum or plasma chloride measurement (moles/volume) 95 mmol/L 98-107 Carbon dioxide 26 mmol/L 21-32 Serum or plasma anion gap determination (moles/volume) 11 mmol/L 5-14 Serum or plasma urea nitrogen measurement (mass/volume ) 8 mg/dL 7-18 Serum or plasma creatinine measurement (mass/volume) 0.66 mg/dL 0.60-1.30 Serum or plasma urea nitrogen/creatinine mass ratio 12 NRG Serum or plasma creatinine measurement w ith calculation of estimated glomerular filtration rate > NRG Serum or plasma glucose measurement (mass/volume) 102 mg/dL 70-105 Serum or plasma calcium measurement (mass/volume) 8.7 mg/dL 8.5-10.1 Serum or plasma total bilirubin measurement (mass/volu me) 0.5 mg/dL 0.1-1.0 Serum or plasma alkaline phosphatase mick surement (enzymatic activity/volume) 148 U/L 40-136 Serum or plasma aspartate aminotransfera se measurement (enzymatic activity/volume) 14 U/L 5-34 Serum or plasma alanine aminotransferase measurement (enzymatic activity/volume) 11 U/L 0-55 Serum or plasma protein measurement (mass/volume) 6.7 g/dL 6.4-8.2 Serum or plasma albumin measurement (mass/volume) 3.8 g/dL 3.2-4.5 CALCIUM CORRECTED 8.9 mg/dL 8.5-10.1 Complete blood count (CBC) with automate d white blood cell (WBC) differential - 02/20/19 04:20 Blood leukocytes automated count (number/volume) 6.9 10*3/uL 4.3-11.0 Blood erythrocytes automated count (number/volume) 3.68 10*6/uL 4.35-5.85 Venous blood hemoglobin measurement (mass/volume) 10.7 g/dL 13.3-17.7 Blood hematocrit (volume fraction) 33 % 40-54 Automated erythrocyte mean corpuscular volume 89 [ foz_us] 80-99 Automated erythrocyte mean corpuscular h emoglobin (mass per erythrocyte) 29 pg 25-34 Automated erythrocyte mean corpuscular h emoglobin concentration measurement (mass/volume) 33 g/dL 32-36 Automated erythrocyte distribution width ratio 14. 2 % 10.0- 14.5 Automated blood platelet count (count/volume) 220 10*3/uL 130-400 Automated blood platelet mean volume measurement 9.0 [foz_us] 7.4-10.4 Automated blood neutrophils/100 leukocytes 75 % 42-75 Automated blood lymphocytes/100 leukocytes 9 % 12-44 Blood monocytes/100 leukocytes 16 % 0-12 Automated blood eosinophils/100 leukocytes 0 % 0-10 Automated blood basophils/100 leukocytes 0 % 0-10 Blood neutrophils automated count (number/volume) 5.2 10*3 1.8-7.8 Blood lymphocytes automated count (number/volume) 0.6 10*3 1.0-4.0 Blood monocytes automated count (number/volume) 1. 1 10*3 0.0-1.0 Automated eosinophil count 0.0 10*3/uL 0 .0-0.3 Automated blood basophil count (count/volume) 0.0 10*3/uL 0.0-0.1 Whole blood basic metabolic panel - 01/30 06/16 04:20 Serum or plasma sodium measurement (moles/volume) 136 mmol/L 135-145 Serum or plasma potassium measurement (moles/volume) 4.0 mmol/L 3.6-5.0 Serum or plasma chloride measurement (moles/volume) 101 mmol/L 98-107 Carbon dioxide 25 mmol/L 21-32 Serum or plasma anion gap determination (moles/volume) 10 mmol/L 5-14 Serum or plasma urea nitrogen measurement (mass/volume ) 7 mg/dL 7-18 Serum or plasma creatinine measurement (mass/volume) 0.65 mg/dL 0.60-1.30 Serum or plasma urea nitrogen/creatinine mass ratio 11 NRG Serum or plasma creatinine measurement w ith calculation of estimated glomerular filtration rate > NRG Serum or plasma glucose measurement (mass/volume) 116 mg/dL 70-105 Serum or plasma calcium measurement (mass/volume) 8.8 mg/dL 8.5-10.1 Complete blood count (CBC) with automate d white blood cell (WBC) differential - 04/04/19 05:55 Blood leukocytes automated count (number/volume) 20.8 10*3/uL 4.3-11.0 Blood erythrocytes automated count (number/volume) 4.39 10*6/uL 4.35-5.85 Venous blood hemoglobin measurement (mass/volume) 12.7 g/dL 13.3-17.7 Blood hematocrit (volume fraction) 38 % 40-54 Automated erythrocyte mean corpuscular volume 86 [ foz_us] 80-99 Automated erythrocyte mean corpuscular h emoglobin (mass per erythrocyte) 29 pg 25-34 Automated erythrocyte mean corpuscular h emoglobin concentration measurement (mass/volume) 34 g/dL 32-36 Automated erythrocyte distribution width ratio 14. 5 % 10.0- 14.5 Automated blood platelet count (count/volume) 236 10*3/uL 130-400 Automated blood platelet mean volume measurement 9.0 [foz_us] 7.4-10.4 Automated blood neutrophils/100 leukocytes 87 % 42-75 Automated blood lymphocytes/100 leukocytes 7 % 12-44 Blood monocytes/100 leukocytes 7 % 0-12 Automated blood eosinophils/100 leukocytes 0 % 0-10 Automated blood basophils/100 leukocytes 0 % 0-10 Blood neutrophils automated count (number/volume) 18.0 10*3 1.8-7.8 Blood lymphocytes automated count (number/volume) 1.4 10*3 1.0-4.0 Blood monocytes automated count (number/volume) 1. 4 10*3 0.0-1.0 Automated eosinophil count 0.0 10*3/uL 0 .0-0.3 Automated blood basophil count (count/volume) 0.0 10*3/uL 0.0-0.1 Blood lactic acid measurement (moles/vol ume) - 04/04/19 05:55 Blood lactic acid measurement (moles/volume) 1.57 mmol/L 0.50-2.00 Comprehensive metabolic panel - 04/04/19 05:55 Serum or plasma sodium measurement (moles/volume) 126 mmol/L 135-145 Serum or plasma potassium measurement (moles/volume) 4.3 mmol/L 3.6-5.0 Serum or plasma chloride measurement (moles/volume) 88 mmol/L 98-107 Carbon dioxide 23 mmol/L 21-32 Serum or plasma anion gap determination (moles/volume) 15 mmol/L 5-14 Serum or plasma urea nitrogen measurement (mass/volume ) 12 mg/dL 7-18 Serum or plasma creatinine measurement (mass/volume) 0.72 mg/dL 0.60-1.30 Serum or plasma urea nitrogen/creatinine mass ratio 17 NRG Serum or plasma creatinine measurement w ith calculation of estimated glomerular filtration rate > NRG Serum or plasma glucose measurement (mass/volume) 154 mg/dL 70-105 Serum or plasma calcium measurement (mass/volume) 9.2 mg/dL 8.5-10.1 Serum or plasma total bilirubin measurement (mass/volu me) 0.6 mg/dL 0.1-1.0 Serum or plasma alkaline phosphatase mick surement (enzymatic activity/volume) 154 U/L 40-136 Serum or plasma aspartate aminotransfera se measurement (enzymatic activity/volume) 17 U/L 5-34 Serum or plasma alanine aminotransferase measurement (enzymatic activity/volume) 15 U/L 0-55 Serum or plasma protein measurement (mass/volume) 7.8 g/dL 6.4-8.2 Serum or plasma albumin measurement (mass/volume) 4.4 g/dL 3.2-4.5 CALCIUM CORRECTED 8.9 mg/dL 8.5-10.1 Magnesium - 04/04/19 05:55 Magnesium 1.5 mg/dL 1.6-2.4 Serum or plasma creatine kinase measurem ent (enzymatic activity/volume) - 04/04/19 05:55 Serum or plasma creatine kinase measurem ent (enzymatic activity/volume) 45 U/L 30-200 Serum or plasma creatine kinase MB measu rement (enzymatic activity/volume) - 04/04/19 05:55 Serum or plasma creatine kinase MB measu rement (enzymatic activity/volume) 1.9 ng/mL <6.6 Serum or plasma troponin i.cardiac measu rement (mass/volume) - 04/04/19 05:55 Serum or plasma troponin i.cardiac measurement (mass/v olume) < ng/mL <0.028 Myoglobin, serum - 04/04/19 05:55 Myoglobin, serum 46.0 ng/mL 10.0-92.0 Serum or plasma lithium measurement (mol es/volume) - 04/04/19 05:55 BNP PT 145.1 pg/mL <100.0 Serum or plasma ethanol measurement (mas s/volume) - 04/04/19 05:55 Serum or plasma ethanol measurement (mass/volume) < mg/dL <10 Manual absolute plasma cell count - 08/17 05:55 Blood monocytes/100 leukocytes 5 % NRG Manual blood segmented neutrophils/100 leukocytes 90 % NRG Manual blood lymphocytes/100 leukocytes 5 % NRG PT panel in platelet poor plasma by coag ulation assay - 04/04/19 05:55 Prothrombin time (PT) in platelet poor plasma by coagu lation assay 14.0 s 12.2-14.7 INR in platelet poor plasma or blood by coagulation as say 1.0 0.8-1.4 Activated partial thromboplastin time (a PTT) in platelet poor plasma bycoagulation assay - 04/04/19 05:55 Activated partial thromboplastin time (a PTT) in platelet poor plasma bycoagulation assay 40 s 24-35 Bacterial blood culture - 04/04/19 05:55 Bacterial blood culture NG NRG Arterial blood gas measurement - 0 06:10 Blood pCO2 50 mm[Hg] 35-45 Blood pO2 75 mm[Hg] 79-93 Arterial blood bicarbonate measurement (moles/volume) 28 mmol/L 23-27 Arterial blood base excess by calculation 4.0 mmol /L -2.5-2.5 Arterial blood oxygen saturation measurement 89 % 94-100 * Inhaled oxygen flow rate 50% BIPAP NR G Arterial blood pH measurement with patient temperature correction 7.38 7.37-7.43 Arterial blood carbon dioxide, total measurement (mole s/volume) 29.7 mmol/L 21.0-31.0 Body site RIGHT RADIAL NRG Assessment of wrist artery patency prior to arterial p uncture POSITIVE NRG Setting of ventilation mode NO NR G Measurement of body temperature 38.8 NRG Bacterial blood culture - 04/04/19 06:11 Bacterial blood culture NG NRG Influenza virus A and B antigen detectio n - 04/04/19 06:30 FLU RESULT NEGATIVE FOR INFLUENZA A AND B ANTIGENS BY IA NRG Complete urinalysis with reflex to cultu re - 04/04/19 06:35 Urine color determination YELLOW NRG Urine clarity determination SL CLOUDY N RG Urine pH measurement by test strip 6.0 5-9 Specific gravity of urine by test strip 1.020 1.016-1.022 Urine protein assay by test strip, semi-quantitative NEGATIVE NEGATIVE Urine glucose detection by automated test strip NE GATIVE NEGATIVE Erythrocytes detection in urine sediment by light micr oscopy NEGATIVE NEGATIVE Urine ketones detection by automated test strip 1+ NEGATIVE Urine nitrite detection by test strip NEGATIVE NEGATIVE Urine total bilirubin detection by test strip NEGA TIVE NEGATIVE Urine urobilinogen measurement by automated test strip (mass/volume) 0.2 mg/dL < = 1.0 Urine leukocyte esterase detection by dipstick NEG ATIVE NEGATIVE Automated urine sediment erythrocyte cou nt by microscopy (number/high power field) NONE NRG Automated urine sediment leukocyte count by microscopy (number/high power field) NONE NRG Bacteria detection in urine sediment by light microsco py TRACE NRG Squamous epithelial cells detection in u rine sediment by light microscopy RARE NRG Crystals detection in urine sediment by light microsco py NONE NRG Casts detection in urine sediment by light microscopy NONE NRG Mucus detection in urine sediment by light microscopy SMALL NRG Complete urinalysis with reflex to culture CULTURE PENDING NRG Urine drug screening test - 04/04/19 06: 35 Urine phencyclidine detection by screening method NEGATIVE NEGATIVE Urine benzodiazepines detection by screening method NEGATIVE NEGATIVE Urine cocaine detection NEGATIVE NEGATI VE Urine amphetamines detection by screening method N EGATIVE NEGATIVE Urine methamphetamine detection by screening method NEGATIVE NEGATIVE Urine cannabinoids detection by screening method N EGATIVE NEGATIVE Urine opiates detection by screening method POSITI VE NEGATIVE Urine barbiturates detection POSITIVE N EGATIVE Screening urine tricyclic antidepressants detection NEGATIVE NEGATIVE Urine methadone detection by screening method NEGA TIVE NEGATIVE Urine oxycodone detection NEGATIVE NEGA TIVE Urine propoxyphene detection NEGATIVE N EGATIVE Complete blood count (CBC) with automate d white blood cell (WBC) differential - 04/05/19 05:44 Blood leukocytes automated count (number/volume) 13.1 10*3/uL 4.3-11.0 Blood erythrocytes automated count (number/volume) 3.42 10*6/uL 4.35-5.85 Venous blood hemoglobin measurement (mass/volume) 10.0 g/dL 13.3-17.7 Blood hematocrit (volume fraction) 30 % 40-54 Automated erythrocyte mean corpuscular volume 88 [ foz_us] 80-99 Automated erythrocyte mean corpuscular h emoglobin (mass per erythrocyte) 29 pg 25-34 Automated erythrocyte mean corpuscular h emoglobin concentration measurement (mass/volume) 33 g/dL 32-36 Automated erythrocyte distribution width ratio 14. 9 % 10.0- 14.5 Automated blood platelet count (count/volume) 180 10*3/uL 130-400 Automated blood platelet mean volume measurement 9.0 [foz_us] 7.4-10.4 Automated blood neutrophils/100 leukocytes 88 % 42-75 Automated blood lymphocytes/100 leukocytes 4 % 12-44 Blood monocytes/100 leukocytes 7 % 0-12 Automated blood eosinophils/100 leukocytes 0 % 0-10 Automated blood basophils/100 leukocytes 0 % 0-10 Blood neutrophils automated count (number/volume) 11.6 10*3 1.8-7.8 Blood lymphocytes automated count (number/volume) 0.6 10*3 1.0-4.0 Blood monocytes automated count (number/volume) 1. 0 10*3 0.0-1.0 Automated eosinophil count 0.0 10*3/uL 0 .0-0.3 Automated blood basophil count (count/volume) 0.0 10*3/uL 0.0-0.1 Comprehensive metabolic panel - 04/05/19 05:44 Serum or plasma sodium measurement (moles/volume) 134 mmol/L 135-145 Serum or plasma potassium measurement (moles/volume) 4.0 mmol/L 3.6-5.0 Serum or plasma chloride measurement (moles/volume) 101 mmol/L 98-107 Carbon dioxide 24 mmol/L 21-32 Serum or plasma anion gap determination (moles/volume) 9 mmol/L 5-14 Serum or plasma urea nitrogen measurement (mass/volume ) 9 mg/dL 7-18 Serum or plasma creatinine measurement (mass/volume) 0.67 mg/dL 0.60-1.30 Serum or plasma urea nitrogen/creatinine mass ratio 13 NRG Serum or plasma creatinine measurement w ith calculation of estimated glomerular filtration rate > NRG Serum or plasma glucose measurement (mass/volume) 147 mg/dL 70-105 Serum or plasma calcium measurement (mass/volume) 9.0 mg/dL 8.5-10.1 Serum or plasma total bilirubin measurement (mass/volu me) 0.2 mg/dL 0.1-1.0 Serum or plasma alkaline phosphatase mick surement (enzymatic activity/volume) 117 U/L 40-136 Serum or plasma aspartate aminotransfera se measurement (enzymatic activity/volume) 15 U/L 5-34 Serum or plasma alanine aminotransferase measurement (enzymatic activity/volume) 12 U/L 0-55 Serum or plasma protein measurement (mass/volume) 6.4 g/dL 6.4-8.2 Serum or plasma albumin measurement (mass/volume) 3.8 g/dL 3.2-4.5 CALCIUM CORRECTED 9.2 mg/dL 8.5-10.1 Magnesium - 04/05/19 05:44 Magnesium 1.8 mg/dL 1.6-2.4 Methicillin resistant Staphylococcus aur eus (MRSA) screening culture - 04/05/19 08:00 Methicillin resistant Staphylococcus aureus (MRSA) scr eening culture NEG NRG Vancomycin trough - 04/05/19 12:16 Vancomycin trough 11.0 ug/mL 10.0-20.0 Comprehensive metabolic panel - 04/06/19 05:22 Serum or plasma sodium measurement (moles/volume) 138 mmol/L 135-145 Serum or plasma potassium measurement (moles/volume) 3.7 mmol/L 3.6-5.0 Serum or plasma chloride measurement (moles/volume) 100 mmol/L 98-107 Carbon dioxide 28 mmol/L 21-32 Serum or plasma anion gap determination (moles/volume) 10 mmol/L 5-14 Serum or plasma urea nitrogen measurement (mass/volume ) 5 mg/dL 7-18 Serum or plasma creatinine measurement (mass/volume) 0.62 mg/dL 0.60-1.30 Serum or plasma urea nitrogen/creatinine mass ratio 8 NRG Serum or plasma creatinine measurement w ith calculation of estimated glomerular filtration rate > NRG Serum or plasma glucose measurement (mass/volume) 140 mg/dL 70-105 Serum or plasma calcium measurement (mass/volume) 8.9 mg/dL 8.5-10.1 Serum or plasma total bilirubin measurement (mass/volu me) 0.2 mg/dL 0.1-1.0 Serum or plasma alkaline phosphatase mick surement (enzymatic activity/volume) 120 U/L 40-136 Serum or plasma aspartate aminotransfera se measurement (enzymatic activity/volume) 17 U/L 5-34 Serum or plasma alanine aminotransferase measurement (enzymatic activity/volume) 14 U/L 0-55 Serum or plasma protein measurement (mass/volume) 6.7 g/dL 6.4-8.2 Serum or plasma albumin measurement (mass/volume) 3.8 g/dL 3.2-4.5 CALCIUM CORRECTED 9.1 mg/dL 8.5-10.1 [facility]ated [facility] - 04/06/19 06:00 Blood leukocytes automated count (number/volume) 9.1 10*3/uL 4.3-11.0 Blood erythrocytes automated count (number/volume) 3.63 10*6/uL 4.35-5.85 Venous blood hemoglobin measurement (mass/volume) 10.6 g/dL 13.3-17.7 Blood hematocrit (volume fraction) 32 % 40-54 Automated erythrocyte mean corpuscular volume 88 [ foz_us] 80-99 Automated erythrocyte mean corpuscular h emoglobin (mass per erythrocyte) 29 pg 25-34 Automated erythrocyte mean corpuscular h emoglobin concentration measurement (mass/volume) 33 g/dL 32-36 Automated erythrocyte distribution width ratio 14. 7 % 10.0- 14.5 Automated blood platelet count (count/volume) 206 10*3/uL 130-400 Automated blood platelet mean volume measurement 9.2 [foz_us] 7.4-10.4 Automated blood complete blood count (he mogram) panel - 04/08/19 05:35 Blood leukocytes automated count (number/volume) 4.6 10*3/uL 4.3-11.0 Blood erythrocytes automated count (number/volume) 3.57 10*6/uL 4.35-5.85 Venous blood hemoglobin measurement (mass/volume) 10.2 g/dL 13.3-17.7 Blood hematocrit (volume fraction) 32 % 40-54 Automated erythrocyte mean corpuscular volume 89 [ foz_us] 80-99 Automated erythrocyte mean corpuscular h emoglobin (mass per erythrocyte) 29 pg 25-34 Automated erythrocyte mean corpuscular h emoglobin concentration measurement (mass/volume) 32 g/dL 32-36 Automated erythrocyte distribution width ratio 14. 5 % 10.0- 14.5 Automated blood platelet count (count/volume) 208 10*3/uL 130-400 Automated blood platelet mean volume measurement 9.1 [foz_us] 7.4-10.4 Whole blood basic metabolic panel - 12/18 05:35 Serum or plasma sodium measurement (moles/volume) 136 mmol/L 135-145 Serum or plasma potassium measurement (moles/volume) 4.0 mmol/L 3.6-5.0 Serum or plasma chloride measurement (moles/volume) 95 mmol/L 98-107 Carbon dioxide 30 mmol/L 21-32 Serum or plasma anion gap determination (moles/volume) 11 mmol/L 5-14 Serum or plasma urea nitrogen measurement (mass/volume ) 10 mg/dL 7-18 Serum or plasma creatinine measurement (mass/volume) 0.70 mg/dL 0.60-1.30 Serum or plasma urea nitrogen/creatinine mass ratio 14 NRG Serum or plasma creatinine measurement w ith calculation of estimated glomerular filtration rate > NRG Serum or plasma glucose measurement (mass/volume) 142 mg/dL 70-105 Serum or plasma calcium measurement (mass/volume) 8.9 mg/dL 8.5-10.1 Automated blood complete blood count (he mogram) panel - 04/09/19 04:30 Blood leukocytes automated count (number/volume) 5.2 10*3/uL 4.3-11.0 Blood erythrocytes automated count (number/volume) 3.65 10*6/uL 4.35-5.85 Venous blood hemoglobin measurement (mass/volume) 10.6 g/dL 13.3-17.7 Blood hematocrit (volume fraction) 33 % 40-54 Automated erythrocyte mean corpuscular volume 90 [ foz_us] 80-99 Automated erythrocyte mean corpuscular h emoglobin (mass per erythrocyte) 29 pg 25-34 Automated erythrocyte mean corpuscular h emoglobin concentration measurement (mass/volume) 32 g/dL 32-36 Automated erythrocyte distribution width ratio 14. 9 % 10.0- 14.5 Automated blood platelet count (count/volume) 235 10*3/uL 130-400 Automated blood platelet mean volume measurement 8.8 [foz_us] 7.4-10.4 Whole blood basic metabolic panel - 03/31 04:30 Serum or plasma sodium measurement (moles/volume) 136 mmol/L 135-145 Serum or plasma potassium measurement (moles/volume) 3.4 mmol/L 3.6-5.0 Serum or plasma chloride measurement (moles/volume) 94 mmol/L 98-107 Carbon dioxide 31 mmol/L 21-32 Serum or plasma anion gap determination (moles/volume) 11 mmol/L 5-14 Serum or plasma urea nitrogen measurement (mass/volume ) 11 mg/dL 7-18 Serum or plasma creatinine measurement (mass/volume) 0.71 mg/dL 0.60-1.30 Serum or plasma urea nitrogen/creatinine mass ratio 15 NRG Serum or plasma creatinine measurement w ith calculation of estimated glomerular filtration rate > NRG Serum or plasma glucose measurement (mass/volume) 167 mg/dL 70-105 Serum or plasma calcium measurement (mass/volume) 8.8 mg/dL 8.5-10.1 Serum or plasma carbamazepine measuremen t (mass/volume) - 05/17/19 16:42 Serum or plasma carbamazepine measurement (mass/volume ) 9.4 ug/mL 4.0-12.0 Complete blood count (CBC) with automate d white blood cell (WBC) differential - 05/17/19 17:42 Blood leukocytes automated count (number/volume) 9.2 10*3/uL 4.3-11.0 Blood erythrocytes automated count (number/volume) 3.83 10*6/uL 4.35-5.85 Venous blood hemoglobin measurement (mass/volume) 11.3 g/dL 13.3-17.7 Blood hematocrit (volume fraction) 34 % 40-54 Automated erythrocyte mean corpuscular volume 88 [ foz_us] 80-99 Automated erythrocyte mean corpuscular h emoglobin (mass per erythrocyte) 30 pg 25-34 Automated erythrocyte mean corpuscular h emoglobin concentration measurement (mass/volume) 34 g/dL 32-36 Automated erythrocyte distribution width ratio 14. 9 % 10.0- 14.5 Automated blood platelet count (count/volume) 232 10*3/uL 130-400 Automated blood platelet mean volume measurement 8.7 [foz_us] 7.4-10.4 Automated blood neutrophils/100 leukocytes 79 % 42-75 Automated blood lymphocytes/100 leukocytes 10 % 12-44 Blood monocytes/100 leukocytes 11 % 0-12 Automated blood eosinophils/100 leukocytes 0 % 0-10 Automated blood basophils/100 leukocytes 0 % 0-10 Blood neutrophils automated count (number/volume) 7.3 10*3 1.8-7.8 Blood lymphocytes automated count (number/volume) 0.9 10*3 1.0-4.0 Blood monocytes automated count (number/volume) 1. 1 10*3 0.0-1.0 Automated eosinophil count 0.0 10*3/uL 0 .0-0.3 Automated blood basophil count (count/volume) 0.0 10*3/uL 0.0-0.1 PT panel in platelet poor plasma by coag ulation assay - 05/17/19 17:42 Prothrombin time (PT) in platelet poor plasma by coagu lation assay 13.9 s 12.2-14.7 INR in platelet poor plasma or blood by coagulation as say 1.0 0.8-1.4 Activated partial thromboplastin time (a PTT) in platelet poor plasma bycoagulation assay - 05/17/19 17:42 Activated partial thromboplastin time (a PTT) in platelet poor plasma bycoagulation assay 38 s 24-35 Blood lactic acid measurement (moles/vol ume) - 05/17/19 17:42 Blood lactic acid measurement (moles/volume) 1.44 mmol/L 0.50-2.00 Comprehensive metabolic panel - 05/17/19 17:42 Serum or plasma sodium measurement (moles/volume) 130 mmol/L 135-145 Serum or plasma potassium measurement (moles/volume) 4.1 mmol/L 3.6-5.0 Serum or plasma chloride measurement (moles/volume) 94 mmol/L 98-107 Carbon dioxide 29 mmol/L 21-32 Serum or plasma anion gap determination (moles/volume) 7 mmol/L 5-14 Serum or plasma urea nitrogen measurement (mass/volume ) 9 mg/dL 7-18 Serum or plasma creatinine measurement (mass/volume) 0.75 mg/dL 0.60-1.30 Serum or plasma urea nitrogen/creatinine mass ratio 12 NRG Serum or plasma creatinine measurement w ith calculation of estimated glomerular filtration rate > NRG Serum or plasma glucose measurement (mass/volume) 152 mg/dL 70-105 Serum or plasma calcium measurement (mass/volume) 8.7 mg/dL 8.5-10.1 Serum or plasma total bilirubin measurement (mass/volu me) 0.2 mg/dL 0.1-1.0 Serum or plasma alkaline phosphatase mick surement (enzymatic activity/volume) 127 U/L 40-136 Serum or plasma aspartate aminotransfera se measurement (enzymatic activity/volume) 14 U/L 5-34 Serum or plasma alanine aminotransferase measurement (enzymatic activity/volume) 13 U/L 0-55 Serum or plasma protein measurement (mass/volume) 7.0 g/dL 6.4-8.2 Serum or plasma albumin measurement (mass/volume) 4.1 g/dL 3.2-4.5 CALCIUM CORRECTED 8.6 mg/dL 8.5-10.1 Serum or plasma lithium measurement (mol es/volume) - 05/17/19 17:42 BNP PT 138.6 pg/mL <100.0 Bacterial blood culture - 05/17/19 17:42 Bacterial blood culture NG NRG DILANTIN (PHENYTOIN) - 05/17/19 17:42 DILANTIN PHEN 16.8 % 10.0-20.0 Bacterial blood culture - 05/17/19 18:00 Bacterial blood culture NG NRG Influenza virus A and B antigen detectio n - 05/17/19 18:20 FLU RESULT NEGATIVE FOR INFLUENZA A AND B ANTIGENS BY IA NRG Complete urinalysis with reflex to cultu re - 05/17/19 21:10 Urine color determination YELLOW NRG Urine clarity determination CLEAR NR G Urine pH measurement by test strip 6.0 5-9 Specific gravity of urine by test strip 1.015 1.016-1.022 Urine protein assay by test strip, semi-quantitative NEGATIVE NEGATIVE Urine glucose detection by automated test strip NE GATIVE NEGATIVE Erythrocytes detection in urine sediment by light micr oscopy NEGATIVE NEGATIVE Urine ketones detection by automated test strip NE GATIVE NEGATIVE Urine nitrite detection by test strip NEGATIVE NEGATIVE Urine total bilirubin detection by test strip NEGA TIVE NEGATIVE Urine urobilinogen measurement by automated test strip (mass/volume) 0.2 mg/dL < = 1.0 Urine leukocyte esterase detection by dipstick NEG ATIVE NEGATIVE Automated urine sediment erythrocyte cou nt by microscopy (number/high power field) NONE NRG Automated urine sediment leukocyte count by microscopy (number/high power field) RARE NRG Bacteria detection in urine sediment by light microsco py TRACE NRG Squamous epithelial cells detection in u rine sediment by light microscopy RARE NRG Crystals detection in urine sediment by light microsco py NONE NRG Casts detection in urine sediment by light microscopy NONE NRG Mucus detection in urine sediment by light microscopy SMALL NRG Complete urinalysis with reflex to culture NO NRG Bacterial urine culture - 05/17/19 21:10 Bacterial urine culture NG NRG Complete blood count (CBC) with automate d white blood cell (WBC) differential - 05/18/19 06:10 Blood leukocytes automated count (number/volume) 8.9 10*3/uL 4.3-11.0 Blood erythrocytes automated count (number/volume) 3.81 10*6/uL 4.35-5.85 Venous blood hemoglobin measurement (mass/volume) 11.2 g/dL 13.3-17.7 Blood hematocrit (volume fraction) 34 % 40-54 Automated erythrocyte mean corpuscular volume 89 [ foz_us] 80-99 Automated erythrocyte mean corpuscular h emoglobin (mass per erythrocyte) 29 pg 25-34 Automated erythrocyte mean corpuscular h emoglobin concentration measurement (mass/volume) 33 g/dL 32-36 Automated erythrocyte distribution width ratio 15. 1 % 10.0- 14.5 Automated blood platelet count (count/volume) 219 10*3/uL 130-400 Automated blood platelet mean volume measurement 8.7 [foz_us] 7.4-10.4 Automated blood neutrophils/100 leukocytes 91 % 42-75 Automated blood lymphocytes/100 leukocytes 4 % 12-44 Blood monocytes/100 leukocytes 5 % 0-12 Automated blood eosinophils/100 leukocytes 0 % 0-10 Automated blood basophils/100 leukocytes 0 % 0-10 Blood neutrophils automated count (number/volume) 8.1 10*3 1.8-7.8 Blood lymphocytes automated count (number/volume) 0.4 10*3 1.0-4.0 Blood monocytes automated count (number/volume) 0. 5 10*3 0.0-1.0 Automated eosinophil count 0.0 10*3/uL 0 .0-0.3 Automated blood basophil count (count/volume) 0.0 10*3/uL 0.0-0.1 Comprehensive metabolic panel - 05/18/19 06:10 Serum or plasma sodium measurement (moles/volume) 136 mmol/L 135-145 Serum or plasma potassium measurement (moles/volume) 4.5 mmol/L 3.6-5.0 Serum or plasma chloride measurement (moles/volume) 99 mmol/L 98-107 Carbon dioxide 29 mmol/L 21-32 Serum or plasma anion gap determination (moles/volume) 8 mmol/L 5-14 Serum or plasma urea nitrogen measurement (mass/volume ) 8 mg/dL 7-18 Serum or plasma creatinine measurement (mass/volume) 0.70 mg/dL 0.60-1.30 Serum or plasma urea nitrogen/creatinine mass ratio 11 NRG Serum or plasma creatinine measurement w ith calculation of estimated glomerular filtration rate > NRG Serum or plasma glucose measurement (mass/volume) 146 mg/dL 70-105 Serum or plasma calcium measurement (mass/volume) 9.2 mg/dL 8.5-10.1 Serum or plasma total bilirubin measurement (mass/volu me) 0.2 mg/dL 0.1-1.0 Serum or plasma alkaline phosphatase mick surement (enzymatic activity/volume) 140 U/L 40-136 Serum or plasma aspartate aminotransfera se measurement (enzymatic activity/volume) 12 U/L 5-34 Serum or plasma alanine aminotransferase measurement (enzymatic activity/volume) 12 U/L 0-55 Serum or plasma protein measurement (mass/volume) 7.2 g/dL 6.4-8.2 Serum or plasma albumin measurement (mass/volume) 4.2 g/dL 3.2-4.5 CALCIUM CORRECTED 9.0 mg/dL 8.5-10.1 Manual absolute plasma cell count - 05/01 11/17 06:10 Blood monocytes/100 leukocytes 4 % NRG Manual blood segmented neutrophils/100 leukocytes 91 % NRG Manual blood lymphocytes/100 leukocytes 5 % NRG Blood polychromasia detection by light microscopy SLIGHT NRG Blood anisocytosis detection by light microscopy S LIGHT NRG Complete blood count (CBC) with automate d white blood cell (WBC) differential - 05/19/19 04:45 Blood leukocytes automated count (number/volume) 7.3 10*3/uL 4.3-11.0 Blood erythrocytes automated count (number/volume) 3.70 10*6/uL 4.35-5.85 Venous blood hemoglobin measurement (mass/volume) 10.8 g/dL 13.3-17.7 Blood hematocrit (volume fraction) 33 % 40-54 Automated erythrocyte mean corpuscular volume 90 [ foz_us] 80-99 Automated erythrocyte mean corpuscular h emoglobin (mass per erythrocyte) 29 pg 25-34 Automated erythrocyte mean corpuscular h emoglobin concentration measurement (mass/volume) 33 g/dL 32-36 Automated erythrocyte distribution width ratio 15. 1 % 10.0- 14.5 Automated blood platelet count (count/volume) 221 10*3/uL 130-400 Automated blood platelet mean volume measurement 9.3 [foz_us] 7.4-10.4 Automated blood neutrophils/100 leukocytes 87 % 42-75 Automated blood lymphocytes/100 leukocytes 6 % 12-44 Blood monocytes/100 leukocytes 8 % 0-12 Automated blood eosinophils/100 leukocytes 0 % 0-10 Automated blood basophils/100 leukocytes 0 % 0-10 Blood neutrophils automated count (number/volume) 6.3 10*3 1.8-7.8 Blood lymphocytes automated count (number/volume) 0.4 10*3 1.0-4.0 Blood monocytes automated count (number/volume) 0. 6 10*3 0.0-1.0 Automated eosinophil count 0.0 10*3/uL 0 .0-0.3 Automated blood basophil count (count/volume) 0.0 10*3/uL 0.0-0.1 Comprehensive metabolic panel - 05/19/19 04:45 Serum or plasma sodium measurement (moles/volume) 135 mmol/L 135-145 Serum or plasma potassium measurement (moles/volume) 4.5 mmol/L 3.6-5.0 Serum or plasma chloride measurement (moles/volume) 99 mmol/L 98-107 Carbon dioxide 25 mmol/L 21-32 Serum or plasma anion gap determination (moles/volume) 11 mmol/L 5-14 Serum or plasma urea nitrogen measurement (mass/volume ) 9 mg/dL 7-18 Serum or plasma creatinine measurement (mass/volume) 0.72 mg/dL 0.60-1.30 Serum or plasma urea nitrogen/creatinine mass ratio 13 NRG Serum or plasma creatinine measurement w ith calculation of estimated glomerular filtration rate > NRG Serum or plasma glucose measurement (mass/volume) 138 mg/dL 70-105 Serum or plasma calcium measurement (mass/volume) 8.9 mg/dL 8.5-10.1 Serum or plasma total bilirubin measurement (mass/volu me) 0.3 mg/dL 0.1-1.0 Serum or plasma alkaline phosphatase mick surement (enzymatic activity/volume) 126 U/L 40-136 Serum or plasma aspartate aminotransfera se measurement (enzymatic activity/volume) 18 U/L 5-34 Serum or plasma alanine aminotransferase measurement (enzymatic activity/volume) 18 U/L 0-55 Serum or plasma protein measurement (mass/volume) 6.6 g/dL 6.4-8.2 Serum or plasma albumin measurement (mass/volume) 3.9 g/dL 3.2-4.5 CALCIUM CORRECTED 9.0 mg/dL 8.5-10.1 Complete blood count (CBC) with automate d white blood cell (WBC) differential - 06/05/19 01:08 Blood leukocytes automated count (number/volume) 8.6 10*3/uL 4.3-11.0 Blood erythrocytes automated count (number/volume) 4.26 10*6/uL 4.35-5.85 Venous blood hemoglobin measurement (mass/volume) 12.0 g/dL 13.3-17.7 Blood hematocrit (volume fraction) 38 % 40-54 Automated erythrocyte mean corpuscular volume 89 [ foz_us] 80-99 Automated erythrocyte mean corpuscular h emoglobin (mass per erythrocyte) 28 pg 25-34 Automated erythrocyte mean corpuscular h emoglobin concentration measurement (mass/volume) 32 g/dL 32-36 Automated erythrocyte distribution width ratio 14. 4 % 10.0- 14.5 Automated blood platelet count (count/volume) 390 10*3/uL 130-400 Automated blood platelet mean volume measurement 8.3 [foz_us] 7.4-10.4 Automated blood neutrophils/100 leukocytes 74 % 42-75 Automated blood lymphocytes/100 leukocytes 12 % 12-44 Blood monocytes/100 leukocytes 14 % 0-12 Automated blood eosinophils/100 leukocytes 0 % 0-10 Automated blood basophils/100 leukocytes 0 % 0-10 Blood neutrophils automated count (number/volume) 6.4 10*3 1.8-7.8 Blood lymphocytes automated count (number/volume) 1.0 10*3 1.0-4.0 Blood monocytes automated count (number/volume) 1. 2 10*3 0.0-1.0 Automated eosinophil count 0.0 10*3/uL 0 .0-0.3 Automated blood basophil count (count/volume) 0.0 10*3/uL 0.0-0.1 Comprehensive metabolic panel - 06/05/19 01:08 Serum or plasma sodium measurement (moles/volume) 134 mmol/L 135-145 Serum or plasma potassium measurement (moles/volume) 4.4 mmol/L 3.6-5.0 Serum or plasma chloride measurement (moles/volume) 93 mmol/L 98-107 Carbon dioxide 29 mmol/L 21-32 Serum or plasma anion gap determination (moles/volume) 12 mmol/L 5-14 Serum or plasma urea nitrogen measurement (mass/volume ) 6 mg/dL 7-18 Serum or plasma creatinine measurement (mass/volume) 0.72 mg/dL 0.60-1.30 Serum or plasma urea nitrogen/creatinine mass ratio 8 NRG Serum or plasma creatinine measurement w ith calculation of estimated glomerular filtration rate > NRG Serum or plasma glucose measurement (mass/volume) 125 mg/dL 70-105 Serum or plasma calcium measurement (mass/volume) 9.3 mg/dL 8.5-10.1 Serum or plasma total bilirubin measurement (mass/volu me) 0.2 mg/dL 0.1-1.0 Serum or plasma alkaline phosphatase mick surement (enzymatic activity/volume) 179 U/L 40-136 Serum or plasma aspartate aminotransfera se measurement (enzymatic activity/volume) 16 U/L 5-34 Serum or plasma alanine aminotransferase measurement (enzymatic activity/volume) 13 U/L 0-55 Serum or plasma protein measurement (mass/volume) 7.9 g/dL 6.4-8.2 Serum or plasma albumin measurement (mass/volume) 4.3 g/dL 3.2-4.5 CALCIUM CORRECTED 9.1 mg/dL 8.5-10.1 Serum or plasma C reactive protein measu rement (mass/volume) - 06/05/19 01:08 Serum or plasma C reactive protein measurement (mass/v olume) 6.05 mg/dL 0.00-0.50 Influenza virus A and B antigen detectio n - 06/05/19 01:08 FLU RESULT NEGATIVE FOR INFLUENZA A AND B ANTIGENS BY [facility] Complete blood count (CBC) with automate d white blood cell (WBC) differential - 06/07/19 05:15 Blood leukocytes automated count (number/volume) 9.2 10*3/uL 4.3-11.0 Blood erythrocytes automated count (number/volume) 4.01 10*6/uL 4.35-5.85 Venous blood hemoglobin measurement (mass/volume) 11.4 g/dL 13.3-17.7 Blood hematocrit (volume fraction) 35 % 40-54 Automated erythrocyte mean corpuscular volume 88 [ foz_us] 80-99 Automated erythrocyte mean corpuscular h emoglobin (mass per erythrocyte) 28 pg 25-34 Automated erythrocyte mean corpuscular h emoglobin concentration measurement (mass/volume) 32 g/dL 32-36 Automated erythrocyte distribution width ratio 14. 3 % 10.0- 14.5 Automated blood platelet count (count/volume) 393 10*3/uL 130-400 Automated blood platelet mean volume measurement 8.5 [foz_us] 7.4-10.4 Automated blood neutrophils/100 leukocytes 84 % 42-75 Automated blood lymphocytes/100 leukocytes 6 % 12-44 Blood monocytes/100 leukocytes 11 % 0-12 Automated blood eosinophils/100 leukocytes 0 % 0-10 Automated blood basophils/100 leukocytes 0 % 0-10 Blood neutrophils automated count (number/volume) 7.7 10*3 1.8-7.8 Blood lymphocytes automated count (number/volume) 0.5 10*3 1.0-4.0 Blood monocytes automated count (number/volume) 1. 0 10*3 0.0-1.0 Automated eosinophil count 0.0 10*3/uL 0 .0-0.3 Automated blood basophil count (count/volume) 0.0 10*3/uL 0.0-0.1 Comprehensive metabolic panel - 06/07/19 05:15 Serum or plasma sodium measurement (moles/volume) 127 mmol/L 135-145 Serum or plasma potassium measurement (moles/volume) 4.3 mmol/L 3.6-5.0 Serum or plasma chloride measurement (moles/volume) 89 mmol/L 98-107 Carbon dioxide 28 mmol/L 21-32 Serum or plasma anion gap determination (moles/volume) 10 mmol/L 5-14 Serum or plasma urea nitrogen measurement (mass/volume ) 8 mg/dL 7-18 Serum or plasma creatinine measurement (mass/volume) 0.74 mg/dL 0.60-1.30 Serum or plasma urea nitrogen/creatinine mass ratio 11 NRG Serum or plasma creatinine measurement w ith calculation of estimated glomerular filtration rate > NRG Serum or plasma glucose measurement (mass/volume) 142 mg/dL 70-105 Serum or plasma calcium measurement (mass/volume) 8.8 mg/dL 8.5-10.1 Serum or plasma total bilirubin measurement (mass/volu me) 0.1 mg/dL 0.1-1.0 Serum or plasma alkaline phosphatase mick surement (enzymatic activity/volume) 131 U/L 40-136 Serum or plasma aspartate aminotransfera se measurement (enzymatic activity/volume) 31 U/L 5-34 Serum or plasma alanine aminotransferase measurement (enzymatic activity/volume) 12 U/L 0-55 Serum or plasma protein measurement (mass/volume) 8.0 g/dL 6.4-8.2 Serum or plasma albumin measurement (mass/volume) 3.7 g/dL 3.2-4.5 CALCIUM CORRECTED 9.0 mg/dL 8.5-10.1 Encounters ACCT No. Visit Date/Time Discharge Status Pt. Type Provider Facility Loc./Unit Complaint [id number] 12/10/2013 15:08:00 12/10/2013 23:59: 59 CLS Outpatient DIPESH MIKE APRN [id number] 08/19/2012 13:16:00 Document Registration [id number] 06/05/2019 02:11:00 14:00:00 DIS Inpatient ROGELIO DO MYRNA Rodriguez [facility] 4TH COPD EXACERBATI ON [id number] 06/04/2019 10:35:00 23:59:59 CLS Outpatient STEPHEN PRICE V [facility] ONC [id number] 05/28/2019 11:16:00 23:59:59 CLS Outpatient SIVA RESENDIZ 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 [facility] RAD HEADACHE,FALLS [id number] 05/25/2019 15:37:00 23:59:59 CLS Outpatient SIVA RESENDIZ 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 [facility] RAD [id number] 05/17/2019 20:00:00 15:30:00 DIS Inpatient AMANDEEP GENAO DO [facility] 4TH COPD W EXACERBA TION [id number] 04/04/2019 07:34:00 10:15:00 DIS Inpatient AMANDEEP GENAO DO [facility] 4TH RLL PNEUMONIA, RESP DISTRESS [id number] 03/19/2019 13:03:00 23:59:59 CLS Preadmit NINA ANAYA APRN [facility] RAD CHRONIC BRONCHITIS,COPD,PNEUMONIA,LUNG MASS,ASTHMA [id number] 03/15/2019 11:52:00 23:59:59 CLS Outpatient NINA ANAYA APRN [facility] RAD CHRONIC BRONCHITIS,PNEUMONIA,LUNG MASS,ASTHMA [id number] 02/18/2019 14:30:00 16:28:00 DIS Inpatient AMANDEEP GENAO DO [facility] 4TH PNEUMONIA;WEAKN ESS [id number] 02/11/2019 13:03:00 00:01:00 DIS Outpatient STEPHEN PRICE [facility] ONC [id number] 02/15/2019 07:55:00 23:59:59 CLS Outpatient AMANDEEP GENAO DO [facility] RAD FALL,NECK PAIN [id number] 02/03/2019 16:14:00 23:59:59 CLS Outpatient AMANDEEP GENAO DO [facility] RAD FALL [id number] 01/18/2019 13:49:00 15:24:00 DIS Emergency FAVIAN COWART 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 [facility] ER SOA [id number] 01/11/2019 12:07:00 23:59:59 CLS Outpatient SIVA RESENDIZ 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 [facility] CARD NON SMALL CELL LUNG CA [id number] 01/06/2019 13:33:00 23:59:59 CLS Outpatient AMANDEEP GENAO DO [facility] RAD FELL,HURT Lamar TABORDER [id number] 12/01/2018 02:02:00 05:05:00 DIS Outpatient STEFAN HERNANDEZ MD [facility] ER SOB [id number] 11/25/2018 15:53:00 18:11:00 DIS Emergency SOFYAFAVIAN Bustos 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 [facility] ER CONGESTION, COUGH [id number] 11/17/2018 15:42:00 23:59:59 CLS Outpatient AMANDEEP GENAO DO [facility] LAB SEIZURE [id number] 10/22/2018 13:30:00 00:01:00 DIS Outpatient STEPHEN PRICE [facility] ONC [id number] 10/05/2018 03:11:00 05:43:00 DIS Outpatient STEFAN HERNANDEZ MD [facility] ER SOB [id number] 09/14/2018 08:31:00 23:59:59 CLS Outpatient HÉCTOR NINA Juli [employer] [facility] RAD LUNG MASS,PNEUM ONIA [id number] 09/04/2018 18:22:00 12:14:00 DIS Inpatient AMANDEEP GENAO DO [facility] 4TH COPD EXACERBATI ON,AMS [id number] 09/04/2018 07:22:00 09:42:00 DIS Emergency STEFAN HERNANDEZ MD [facility] ER FALL [id number] 08/12/2018 17:27:00 19:01:00 DIS Emergency NESTOR AVILEZ [facility] ER PAIN BEHIND LEFT EAR, T ROUBLE WALKING [id number] 07/20/2018 13:16:00 00:01:00 DIS Outpatient STEPHEN PRICE [facility] ONC [id number] 07/22/2018 00:00:00 13:50:00 DIS Inpatient AMANDEEP GENAO DO [facility] 4TH PNEUMONIA;LUNG CANCER ON CHEMO;COPD/ [id number] 07/14/2018 10:42:00 23:59:59 CLS Outpatient STEPHEN PRICE V [facility] CARD NON SMALL CELL LUNG CA [id number] 07/02/2018 14:31:00 23:59:59 CLS Outpatient RANI PACHECO DO [facility] RAD NON SMALL CELL LUNG CAN CER [id number] 06/24/2018 20:23:00 14:26:00 DIS Inpatient AMANDEEP GENAO DO [facility] 4TH RLL PNA [id number] 06/22/2018 14:51:00 23:59:59 CLS Outpatient SIVA RESENDIZP [facility] RAD [id number] 06/10/2018 04:35:00 15:30:00 DIS Inpatient AMANDEEP GENAO DO [facility] 4TH RLL PNEUMONIA C OPD EXACERBATION [id number] 05/15/2018 13:27:00 14:15:00 DIS Inpatient JAMIR ELLISON DO [facility] 4TH NEUTROPENIA,PNEUMONIA,H YPONATREMIA [id number] 05/14/2018 14:53:00 23:59:59 CLS Outpatient AMANDEEP GENAO DO [facility] RAD COUGH [id number] 05/12/2018 15:17:00 23:59:59 CLS Outpatient AMANDEEP GEANO DO [facility] RAD FELL AND HURT R IGHT SHOULDER [id number] 05/05/2018 11:59:00 23:59:59 CLS Outpatient SIVA RESENDIZ [facility] CARD NON SMALL CELL LUNG CA [id number] 04/21/2018 16:40:00 16:35:00 DIS Inpatient AMANDEEP GENAO DO [facility] 4TH COPD,EPILEPSY,L EFT LOWER LOBE PNEUM;LUNG CA [id number] 03/30/2018 13:59:00 00:01:00 DIS Outpatient DEESTEPHEN [facility] ONC [id number] 03/24/2018 22:15:00 10:42:00 DIS Inpatient AMANDEEP GENAO DO [facility] 4TH SEIZURE DISORDER,GENERALIZED WEAKNESS,META LUNG CA [id number] 03/16/2018 20:46:00 11:22:00 DIS Inpatient AMANDEEP GENAO DO [facility] 4TH ORTHOSTATIC HYPOTENSION,HYPONATREMIA [id number] 03/09/2018 13:48:00 14:30:00 DIS Inpatient CHADWICK LASSITER AMANDEEP Miriam [facility] 4TH WEAKNESS, C2 FR ACTURE [id number] 02/10/2018 12:15:00 23:59:59 CLS Outpatient SIVA RESENDIZP [facility] CARD NON SMALL CELL LUNG CA [id number] 01/26/2018 15:30:00 13:15:00 DIS Inpatient AMANDEEP GENAO DO [facility] 4TH PNENOMONIA,LUNG CANCER [id number] 01/19/2018 16:00:00 23:59:59 CLS Outpatient AMANDEEP GENAO DO [facility] RAD TRAUMA TO NECK [id number] 01/13/2018 12:15:00 23:59:59 CLS Preadmit NINA ANAYA APRN [facility] RAD PNEUMONIA,NON-S MALL CELL LUNG CANCER [id number] 01/08/2018 14:06:00 23:59:59 CLS Outpatient SIVA RESENDIZP [facility] RAD [id number] 12/26/2017 13:12:00 018 14:23:00 DIS Outpatient STEPHEN PRICE V [facility] ONC [id number] 12/24/2017 08:01:00 018 09:47:00 DIS Outpatient KURT MOHR MD [facility] CATARACT [id number] 12/22/2017 05:39:00 018 14:34:00 DIS Outpatient KURT MOHR MD [facility] PREOP CATARACT [id number] 12/12/2017 10:20:00 018 12:10:00 DIS Outpatient KURT MOHR MD [facility] CATARACT LEFT EYE [id number] 12/10/2017 06:22:00 018 14:11:00 DIS Outpatient KURT MOHR MD [facility] PREOP CATARACT LEFT EYE [id number] 12/04/2017 09:11:00 018 13:15:00 DIS Inpatient AMANDEEP GENAO DO [facility] 4TH COPD ACUTE EXAC ERBATION [id number] 11/14/2017 20:45:00 018 14:28:00 DIS Inpatient JAMIR ELLISON DO [facility] 4TH RLL PNEUMONIA,ORTHOSTAT IC HYPOTENSION,HX LUNG CA [id number] 10/30/2017 11:00:00 018 23:59:59 CLS Outpatient SIVA RESENDIZ [facility] CARD NON-SMALL CELL LUNG CANCER,SECONDARY CANCER OF [place] [id number] 10/07/2017 12:07:00 018 23:59:59 CLS Outpatient AMANDEEP GENAO DO [facility] LAB TOENAIL FUNGUS [id number] 09/18/2017 13:18:00 018 00:01:00 DIS Outpatient DEE STEPHEN Flavio [facility] ONC [id number] 09/24/2017 04:46:00 018 15:52:00 DIS Inpatient AMANDEEP GENAO DO [facility] 4TH PNEUMONIA,METAS TATIC LUNG CANCER ON CHEMO,COPD [id number] 09/04/2017 11:24:00 018 23:59:59 CLS Outpatient SIVA RESENDIZ [facility] LAB NON SMALL CELL LUNG CANCER [id number] 08/28/2017 17:10:00 018 23:59:59 CLS Outpatient NINA ANAYA APRN [facility] RAD LEG PAIN,LEG SW ELLING,LUNG MASS [id number] 08/05/2017 15:56:00 018 12:55:00 DIS Inpatient AMANDEEP GENAO DO [facility] 4TH COPD ACUTE EXACERBATION;RESP DISTRESS [id number] 08/05/2017 10:11:00 018 15:17:00 DIS Emergency VANESSA GUTHRIE MD [facility] ER SOB [id number] 07/29/2017 14:37:00 018 13:31:00 DIS Inpatient AMANDEEP GENAO DO [facility] 4TH PNEUMONIA,COPD EXACERBATION [id number] 07/28/2017 12:13:00 018 23:59:59 CLS Outpatient AMANDEEP GENAO DO [facility] RAD COUGH R05,CONGE STION R09.81 [id number] 07/24/2017 10:27:00 018 14:30:00 DIS [facility] [id number] 07/23/2017 14:46:00 018 15:11:00 DIS Outpatient NEGRETE CÉSAR LASSITER [facility] PREOP LUNG CA [id number] 07/09/2017 08:57:00 018 14:25:00 DIS Outpatient STEPHEN PRICE V [facility] RAD R93.7 ABNORMAL MRI SCAN , BONE [id number] 07/03/2017 08:40:00 018 23:59:59 CLS Outpatient STEPHEN PRICE V [facility] RAD R91.1 LUNG NODULE [id number] 07/02/2017 08:26:00 018 23:59:59 CLS Outpatient RANI PACHECO DO [facility] RAD ABN PET OF LUNG CA [id number] 06/17/2017 09:08:00 018 23:59:59 CLS Outpatient RANI PACHECO DO [facility] RAD LUNG NODULE,LUNG MASS,T OBACCO USER [id number] 06/03/2017 09:00:00 018 23:59:59 CLS Preadmit AMANDEEP GENAO DO [facility] RAD SPICULATED NODU LE IN LT UPPER LOBE OF LUNG [id number] 05/20/2017 16:28:00 018 14:48:00 DIS Inpatient AMANDEEP GENAO DO [facility] 4TH PNEUMONIA BILAT LL,MASS L UPPER LOBE,FATIGUE,PAST- [id number] 04/30/2017 19:42:00 018 23:27:00 DIS Emergency NOREEN CHÁVEZ [employer] [facility] ER NOSE BLEED [id number] 04/30/2017 15:18:00 018 18:22:00 DIS Emergency NOREEN CHÁVEZ [employer] [facility] ER NOSE BLEED [id number] 04/14/2017 14:15:00 018 23:59:59 CLS Preadmit NINA ANAYA [employer] [facility] PULM ASTHMA [id number] 04/06/2017 11:15:00 018 14:00:00 DIS Inpatient AMANDEEP GENAO DO [facility] 4TH BILAT LOWER LOB E PNA, COPD [id number] 04/03/2017 10:09:00 018 23:59:59 CLS Preadmit NINA ANAYA APRN [facility] RT ASTHMA [id number] 04/03/2017 10:07:00 018 23:59:59 CLS Preadmit NINA ANAYA [facility]N [facility] System RAD TOBACCO USER [id number] 03/30/2017 07:03:00 018 12:25:00 DIS Inpatient AMANDEEP GENAO DO Via [facility] 4TH RESP, DISTRESS, COPD EXACERBATION [id number] 03/09/2017 18:31:00 017 14:50:00 DIS Inpatient AMANDEEP GENAO DO Via [facility] 4TH SEVERE SEPSIS,R EPIRATORY FAILURE,PNEUMONIA [id number] 03/05/2017 10:54:00 017 13:24:00 DIS Emergency IRAIDA PRATT MD Via [facility] ER SKIN ABRASIONS ON NOSE AND LEFT HAND--FALL [id number] 02/28/2017 13:26:00 017 14:45:00 DIS Inpatient AMANDEEP GENAO DO [facility] 4TH PNEUMONIA,COPD EXACERBATION [id number] 02/04/2017 15:03:00 017 23:59:59 CLS Outpatient AMANDEEP GENAO DO [facility] LAB SOB COPD WEIGHT LOSS [id number] 01/14/2017 12:26:00 23:59:59 CLS Outpatient AMANDEEP GENAO DO [facility] RAD FELL-HIT HEAD [id number] 12/19/2016 12:24:00 23:59:59 CLS Outpatient AMANDEEP GENAO DO [facility] RAD COPD,COUGH [id number] 09/10/2016 13:39:00 23:59:59 CLS Outpatient AMANDEEP GENAO DO [facility] LAB SEIZURE [id number] 08/20/2016 10:59:00 23:59:59 CLS Outpatient AMANDEEP GENAO DO [facility] LAB SEIZURE COPD [id number] 02/28/2016 13:20:00 016 23:59:59 CLS Outpatient AMANDEEP GENAO DO [facility] RAD WEIGHT LOSS [id number] 02/21/2016 09:42:00 016 23:59:59 CLS Outpatient AMANDEEP GENAO DO [facility] 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,SUPERVISOR PHOTOENGRAVING D [id number] 02/19/2016 16:00:00 23:59:59 CLS Outpatient AMANDEEP GENAO DO [facility] RAD RECENT 20LB [place] GHT LOSS [id number] 12/13/2015 16:15:00 016 23:59:59 CLS Outpatient AMANDEEP GENAO DO [facility] LAB SEIZURE [id number] 11/20/2015 07:17:00 016 09:32:00 DIS Emergency MARY RIOS, STEFAN Zuniga [facility] ER SEIZURE [id number] 10/24/2015 13:47:00 15:18:00 DIS Emergency NOREEN CHÁVEZ APRN [facility] ER LEFT EAR LAC [id number] 08/10/2015 16:11:00 12:30:00 DIS Inpatient AMANDEEP GENAO DO [facility] 4TH COPD EXACERBATI ON [id number] 07/09/2015 13:22:00 23:59:59 CLS Outpatient AMANDEEP GENAO DO [facility] LAB HYPERLIPIDEMIA [id number] 06/13/2015 13:09:00 11:40:00 DIS Inpatient AMANDEEP GENAO DO [facility] 4TH COPD EXACERBATI ON HYPONATREMIA [id number] 05/30/2015 12:53:00 23:59:59 CLS Outpatient AMANDEEP GENAO DO [facility] LAB SEIZURES,HYPERLIPIDEMIA,PAIN IN L FOOT,HX OF FX [id number] 03/11/2015 16:23:00 11:36:00 DIS Inpatient AMANDEEP GENAO DO [facility] 4TH PNEUMONIA,HYPOXIA,SEIZURE,COPD EXAC [id number] 11/08/2014 12:06:00 015 23:59:59 CLS Outpatient AMANDEEP GENAO DO [facility] LAB [id number] 08/26/2014 11:54:00 015 13:42:00 DIS Emergency KARIS BONILLA [facility] ER SOA [id number] 04/26/2014 13:15:00 23:59:59 CLS Outpatient AMANDEEP GENAO DO [facility] LAB SEIZURES,COPD [id number] 03/25/2014 12:57:00 014 23:59:59 CLS Outpatient AMANDEEP GENAO DO [facility] RAD NUMBNESS TINGLI NG OF R ARM [id number] 11/16/2013 12:35:00 014 23:59:59 CLS Outpatient AMANDEEP GENAO DO [facility] LAB LAMICTAL LEVEL [id number] 11/08/2013 11:10:00 014 11:27:00 DIS Emergency VANESSA GUTHRIE MD [facility] ER STAPLE REMOVAL [id number] 11/02/2013 01:47:00 03:43:00 DIS Emergency VANESSA GUTHRIE MD [facility] ER SEIZURE [id number] 11/01/2013 16:10:00 23:59:59 CLS Outpatient AMANDEEP GENAO DO [facility] RAD LT FOOT SWELLIN G AND HAS BUMP ON 1ST METATARSAL [id number] 10/23/2013 12:37:00 23:59:59 CLS Outpatient YELITZA ANTHONY MD [facility] LAB SEIZURES-PRIMARY [id number] 09/28/2013 12:18:00 23:59:59 CLS Outpatient AMANDEEP GENAO DO [facility] LAB LEFT LEG SWELL [id number] 09/17/2013 01:40:00 03:55:00 DIS Emergency CELESTE BILLY DO [facility] ER SEIZURE-FELL [id number] 09/03/2013 12:42:00 23:59:59 CLS Outpatient AMANDEEP GENAO DO [facility] LAB SEIZURE,COPD [id number] 07/20/2013 09:49:00 23:59:59 CLS Outpatient AMANDEEP GENAO DO [facility] RAD WEIGHT LOSS, AB D PAIN [id number] 07/12/2013 16:11:00 23:59:59 CLS Outpatient AMANDEEP GENAO DO [facility] LAB LOST 10 LBS, AB D PAIN [id number] 05/25/2013 16:19:00 23:59:59 CLS Outpatient AMANDEEP GENAO DO [facility] RAD COUGH,BRONCHITI S [id number] 02/16/2013 13:23:00 16:25:00 DIS Emergency NOREEN CHÁVEZ APRN [facility] ER FELL HURT ANKLE,KNEE, H IP [id number] 12/23/2012 12:55:00 013 14:12:00 DIS Emergency NOREEN CHÁVEZ APRN [facility] ER FALL/LEFT RIB PAIN [id number] 10/29/2012 11:00:00 013 23:59:59 CLS Outpatient AMANDEEP GENAO DO [facility] RAD COPD [id number] 10/22/2012 16:07:00 013 23:59:59 CLS Outpatient AMANDEEP GENAO DO [facility] RAD BRONCHITIS,COPD [id number] 12/09/2011 15:35:00 Document Registration [id number] 10/15/2011 11:10:00 Document Registration [id number] 07/23/2011 23:37:00 Document Registration [id number] 05/18/2011 14:31:00 Document Registration [id number] 02/15/2011 13:07:00 Document Registration [id number] 01/28/2011 12:37:00 Document Registration [id number] 06/23/2010 19:15:00 Document Registration [id number] 05/08/2010 14:15:00 Document Registration [id number] 02/14/2010 11:40:00 Document Registration [id number] 12/02/2009 12:42:00 Document Registration
--- NOTE | 2019-06-10 08:47 | Physician Query Clarification ---
PQ-Further Specificity Admission/Discharge Admission Date: Jun 05, 2019 at 02:11 Discharge Date: Jun 07, 2019 at 14:00 The medical record reflects the following clinical scenario: History/Risk Factors: Pneumonia, COPD AE, acute respiratory disress Clinical Findings: 06/04 CXR - Developing bibasilar infiltrate versus edema superimposed upon chronic right basilar scarring. 06/06 CXR - Improved bibasilar infiltrate and/or edema, particularly within the right lung base superimposed upon background chronic interstitial lung changes. Treatment: chemo 06/03, IV Solu-medrol, IV Pipercillin, Albuterol Question: Can you further specify the primary and secondary sites of the patients lung cancer per the clinical indicators above? Please document a response in the Progress Notes or Discharge Summary. 1. KESHAV lung CA with bone mets 2. hx lung CA chemo/treatments finished 3. Other, with explanation of the clinical findings. 4. Clinically undetermined, no explanation for the clinical findings. PHYSICIAN RESPONSE Can you specify per above: 1 Please remember a lack of response to the above will prompt a phone page by CDI/Coding staff. In responding to this query, please exercise your independent professional judgment. The purpose of this communication is to more accurately reflect the complexity of your patients condition. The fact that a question is asked does not imply that any particular answer is desired or expected. Thank you for your timely response to this clarification. Requestors name: Juan THIS PHYSICIAN QUERY FORM IS A PERMANENT PART OF THE MEDICAL RECORD JUAN VILLA Jun 10, 2019 08:47 AMANDEEP GENAO DO Jun 11, 2019 07:34
--- NOTE | 2019-06-10 09:05 | Physician Query Clarification ---
PQ-Further Specificity Admission/Discharge Admission Date: Jun 05, 2019 at 02:11 Discharge Date: Jun 07, 2019 at 14:00 The medical record reflects the following clinical scenario: History/Risk Factors: Pneumonia, COPD AE, acute respiratory distress, CA lung Clinical Findings: 06/04 CXR - Developing bibasilar infiltrate versus edema superimposed upon chronic right basilar scarring. WBC 8.6, dyspnea, shortness of breath, wheezing Treatment: IV Pipercillin, IV Solu-medrol, Albuterol Question: Can you further specify the causitive organism for the pneumonia per the clinical indicators above? My bacilli pneumonia listed on 06/06 PN Please document a response in the Progress Notes or Discharge Summary. 1. Mycobacterial pneumonia 2. bacterial pneumonia 3. type of pneumonia undetermined 4. Other, with explanation of the clinical findings. 5. Clinically undetermined, no explanation for the clinical findings. PHYSICIAN RESPONSE Can you specify per above: Clinically undetermined Please remember a lack of response to the above will prompt a phone page by CDI/Coding staff. In responding to this query, please exercise your independent professional judgment. The purpose of this communication is to more accurately reflect the complexity of your patients condition. The fact that a question is asked does not imply that any particular answer is desired or expected. Thank you for your timely response to this clarification. Requestors name: Juan THIS PHYSICIAN QUERY FORM IS A PERMANENT PART OF THE MEDICAL RECORD JUAN VILLA Jun 10, 2019 09:05 AMANDEEP GENAO DO Jun 11, 2019 07:35
== END 2019-06-07 14:00 | disposition home or self-care (01) | DRG 190 ==
LOC: EDUNIT# 01:04 → ER 01:06 → 4TH 02:11
PROVIDERS: ADMIT Family Medicine; ATTEND Family Medicine
DX: J43.9 Emphysema, unspecified (principal); J18.9 Pneumonia, unspecified organism; R06.03 Acute respiratory distress; E87.1 Hypo-osmolality and hyponatremia; C79.51 Secondary malignant neoplasm of bone; C34.12 Malignant neoplasm of upper lobe, left bronchus or lung; I38 Endocarditis, valve unspecified; G47.30 Sleep apnea, unspecified; I10 Essential (primary) hypertension; E78.00 Pure hypercholesterolemia, unspecified; B91 Sequelae of poliomyelitis; R29.898 Other symptoms and signs involving the musculoskeletal system; M24.50 Contracture, unspecified joint; G62.9 Polyneuropathy, unspecified; G40.909 Epilepsy, unspecified, not intractable, without status epilepticus; M19.91 Primary osteoarthritis, unspecified site; R01.1 Cardiac murmur, unspecified; Z87.891 Personal history of nicotine dependence; Z87.01 Personal history of pneumonia (recurrent)
CPT/HCPCS: 36415; 71045; 71046; 80053; 85025; 86141; 87804; 94640; 94760; 96374

== ENCOUNTER 2019-06-08 18:26 | Observation (INO) | payer MEDICARE, MEDICAID ==
[~2019-06-08] VITALS: Ht 182 cm; Wt 83.4 kg
[~2019-06-08 18:26] MED LIST changes: +HYDR-4226 PO
[2019-06-08] MEDS ORDERED: fentaNYL INJECTION 100 MCG/2 ML AMP IVP ONE ×2 (19:00→19:45)
--- NOTE | 2019-06-08 19:14 | ED Lower Extremity ---
General Chief Complaint: Lower Extremity Stated Complaint: LEFT FOOT & KNEE PAIN Nursing Triage Note: AMBULATING, FOOT LEFT BUCKLED, DEFORMITY Nursing Sepsis Screen: No Definite Risk Source: patient Exam Limitations: no limitations History of Present Illness Date Seen by Provider: Jun 08, 2019 Time Seen by Provider: 18:40 Initial Comments To ER by EMS from home with reports of left ankle pain. He stood up and his foot "buckled". He was just released from the hospital yesterday for pneumonia/COPD exacerbation. Onset: just prior to arrival Severity: moderate Pain/Injury Location: left foot Method of Injury: fell Modifying Factors: Worse With Movement Allergies and Home Medications Allergies Coded Allergies: aspirin (Unverified Allergy, Mild, DOES NOT WORK WELL W/ OTHER MEDS, 10/05/18) ibuprofen (Unverified Allergy, Mild, 10/05/18) Home Medications Albuterol Sulfate 2.5 Mg/3 Ml Vial.neb, 2.5 MG NEB Q4H PRN for SHORTNESS OF BREATH, (Reported) Albuterol Sulfate 1 Puff Puff, 2 PUFF IH Q6H PRN for SHORTNESS OF BREATH, (Reported) Amlodipine Besylate 5 Mg Tablet, 5 MG PO 0800, (Reported) Atorvastatin Calcium 20 Mg Tablet, 10 MG PO 0300, (Reported) TAKES OF A 20MG ONCE DAILY Budesonide/Formoterol Fumarate 10.2 Gm Hfa.aer.ad, 2 PUFF INH BID PRN for WHEN OUT OF ADVAIR, (Reported) Carbamazepine 200 Mg Tablet, 200 MG PO 0300,0800,2300, (Reported) Carbamazepine 200 Mg Tablet, 400 MG PO 1500, (Reported) TAKES 2 (200 MG) TABLETS Cefdinir 300 Mg Capsule, 300 MG PO BID Prescribed by: GENIE HANSON on 06/07/19 0805 Fluticasone/Salmeterol 12 Gm Hfa.aer.ad, 1 PUFF IH BID, (Reported) Gabapentin 300 Mg Capsule, 300 MG PO 2300, (Reported) Gabapentin 600 Mg Tablet, 600 MG PO 0800,1500, (Reported) Hydrocodone/Acetaminophen 1 Each Tablet, 1 TAB PO BID PRN for PAIN-MODERATE (5- 7), (Reported) Lamotrigine 25 Mg Tablet, 25 MG PO 0300, 1500, (Reported) TAKES 25MG @ 0300 25MG + 100MG @1500 Lamotrigine 100 Mg Tablet, 100 MG PO 1500,2300, (Reported) PT TAKES 100MG AT 1500 & 2300 Meloxicam 7.5 Mg Tablet, 15 MG PO 1500, (Reported) Omeprazole 20 Mg Capsule.dr, 20 MG PO DAILY PRN for HEARTBURN, (Reported) Phenytoin Sodium Extended 100 Mg Capsule, 200 MG PO 0800,1500, (Reported) TAKES 2 (100 MG) CAPSULES Phenytoin Sodium Extended 100 Mg Capsule, 100 MG PO 2300, (Reported) Prednisone 10 Mg Tab.ds.pk, 10 MG PO DAILY take 40 mg day 1 take 30 mg day 2 take 20 mg day 3 take 19 mg day 4 stop when they aare all gone Prescribed by: GENIE HANSON on 06/07/19 0805 Ropinirole HCl 0.5 Mg Tablet, 0.5 MG PO 1500, (Reported) Tiotropium [place] 1 Inh Aerp, 1 CAP IH 1500, (Reported) Patient Home Medication List Home Medication List Reviewed: Yes Review of Systems Constitutional: see HPI EENTM: see HPI Respiratory: no symptoms reported Cardiovascular: no symptoms reported Genitourinary: no symptoms reported Musculoskeletal: see HPI Skin: no symptoms reported Psychiatric/Neurological: No Symptoms Reported Past Sfwatno-Veebpr-Fqsfhd Hx Patient Social History Alcohol Use: Denies Use Recreational Drug Use: Yes (not current, 15 years ago-ETOH and PO drugs) Drug of Choice: HX OF RX DRUG ABUSE, CLAIMS NONE 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 Type Used: Cigars, Cigarettes Former Smoker, Quit: Jan 29, 2017 2nd Hand Smoke Exposure: No Recent Foreign Travel: No Contact w/Someone Who Travel: No Recent Infectious Disease Expo: No Recent Hopitalizations: No Immunizations Up To Date Tetanus Booster (TDap): Less than 5yrs PED Vaccines UTD: Yes Date of Influenza Vaccine: Apr 21, 2018 Seasonal Allergies Seasonal Allergies: Yes Past Medical History Surgeries: Yes Eye Surgery, Gallbladder Respiratory: Yes Asthma, Pneumonia, Chronic Bronchitis, Sleep Apnea, COPD Currently Using CPAP: No Currently Using BIPAP: No Cardiac: Yes Heart Murmur, High Cholesterol, Hypertension, Valvular Heart Disease 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) Neuropathy, Seizure Disorder, Vertigo Reproductive Disorders: No Sexually Transmitted Disease: No HIV/AIDS: No Genitourinary: No Gastrointestinal: Yes (CHRONIC NAUSEA/VOMITING) Musculoskeletal: Yes (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 Physical Exam Vital Signs Vital Signs - First Documented 06/08/19 18:28 Temp 36.8 Pulse 81 Resp 18 B/P (MAP) 138/86 (103) Pulse Ox 93 O2 Delivery Room Air Capillary Refill : Less Than 3 Seconds Height, Weight, BMI Height: 6'0" Weight: 174lbs. 3.0oz. [id number]; 25.00 BMI Method:Stated General Appearance: WD/WN, no apparent distress, other (chronically ill) HEENT: PERRL/EOMI, normal ENT inspection Respiratory: no respiratory distress, no accessory muscle use Hips: bilateral hip non-tender, bilateral hip normal inspection, bilateral hip normal range of motion Legs: bilateral leg non-tender, bilateral leg normal inspection, bilateral leg normal range of motion Knees: bilateral knee non-tender, bilateral knee normal inspection, bilateral knee normal range of motion Ankles: left ankle pain, left ankle soft tissue tenderness Feet: bilateral foot non-tender, bilateral foot normal inspection, bilateral foot normal range of motion; left foot other (unable to palpate a dorsalis pedis pulse, I'm able to Doppler blood flow over this artery . The foot is rotated externally in comparison to the knee.) Neurologic/Psychiatric: alert, normal mood/affect, oriented x 3 Skin: normal color Procedures/Interventions Date of ETT Placement: Mar 09, 2017 Time of ETT Placement: 1811 Suture Size: 5-0 Progress/Results/Core Measures Results/Orders Lab Results Laboratory Tests Test 06/08/19 18:10 Range/Units White Blood Count 9.1 4.3-11.0 10^3/uL Red Blood Count 4.00 L 4.35-5.85 10^6/uL Hemoglobin 11.3 L 13.3-17.7 G/DL Hematocrit 35 L 40-54 % Mean Corpuscular Volume 88 80-99 FL Mean Corpuscular Hemoglobin 28 25-34 PG Mean Corpuscular Hemoglobin Concent 32 32-36 G/DL Red Cell Distribution Width 14.3 10.0-14.5 % Platelet Count 394 130-400 10^3/uL Mean Platelet Volume 8.1 7.4-10.4 FL Neutrophils (%) (Auto) 66 42-75 % Lymphocytes (%) (Auto) 13 12-44 % Monocytes (%) (Auto) 21 H 0-12 % Eosinophils (%) (Auto) 0 0-10 % Basophils (%) (Auto) 0 0-10 % Neutrophils # (Auto) 6.0 1.8-7.8 X 10^3 Lymphocytes # (Auto) 1.2 1.0-4.0 X 10^3 Monocytes # (Auto) 2.0 H 0.0-1.0 X 10^3 Eosinophils # (Auto) 0.0 0.0-0.3 10^3/uL Basophils # (Auto) 0.0 0.0-0.1 10^3/uL Neutrophils % (Manual) 63 % Lymphocytes % (Manual) 11 % Monocytes % (Manual) 26 % Blood Gas Puncture Site UNK Blood Gas Patient Temperature 36.7 Arterial Blood pH 7.38 7.37-7.43 Arterial Blood Partial Pressure CO2 60 H 35-45 MMHG Arterial Blood Partial Pressure O2 59 L 79-93 MMHG Arterial Blood HCO3 35 H 23-27 MMOL/L Arterial Blood Total CO2 37.1 H 21.0-31.0 MMOL/L Arterial Blood Oxygen Saturation 89 L 94-100 % Arterial Blood Base Excess 9.9 H -2.5-2.5 MMOL/L Johan Test NA Blood Gas Ventilator Setting NO Blood Gas Inspired Oxygen UNK Sodium Level 132 L 135-145 MMOL/L Potassium Level 4.3 3.6-5.0 MMOL/L Chloride Level 90 L 98-107 MMOL/L Carbon Dioxide Level 32 21-32 MMOL/L Anion Gap 10 5-14 MMOL/L Blood Urea Nitrogen 8 7-18 MG/DL Creatinine 0.64 0.60-1.30 MG/DL Estimat Glomerular Filtration Rate > 60 BUN/Creatinine Ratio 13 Glucose Level 75 70-105 MG/DL Calcium Level 8.2 L 8.5-10.1 MG/DL Corrected Calcium 8.4 L 8.5-10.1 MG/DL Total Bilirubin 0.2 0.1-1.0 MG/DL Aspartate Amino Transf (AST/SGOT) 13 5-34 U/L Alanine Aminotransferase (ALT/SGPT) 11 0-55 U/L Alkaline Phosphatase 136 40-136 U/L Total Protein 6.6 6.4-8.2 GM/DL Albumin 3.8 3.2-4.5 GM/DL My Orders Orders - NOREEN CHÁVEZ APRN Fentanyl Injection (Sublimaze Injection (06/08/19 19:00) Tibia/Fibula, Left, 2 Views (06/08/19 18:53) Cbc With Automated Diff (06/08/19 19:10) Comprehensive Metabolic Panel (06/08/19 19:10) Arterial Blood Gas (06/08/19 19:10) Manual Differential (06/08/19 18:10) Vital Signs/I&O 06/08/19 18:28 Temp 36.8 Pulse 81 Resp 18 B/P (MAP) 138/86 (103) Pulse Ox 93 O2 Delivery Room Air Blood Pressure Mean: 103 Departure Communication (Admissions) Time/Spoke to Admitting Phy: 19:[address] Genao and Dr. Watts, Dr. Watts will consult tomorrow, Dr. Dr. Genao will admit. 1924-fracture reduction note: patient was given 50 mcg of fentanyl IV, traction and internal rotation applied to the foot and ankle, splinted in this position then sent to x-ray. 1950-spoke with , he is full code at this point. He does look much worse than last time I saw him and seems to have declined in overall helped significantly. Discussed with him and his girlfriend that I do not suspect he would be a good surgical candidate and this may be managed nonoperatively that decision should be deferred to primary care provider and orthopedics. At this point he has capillary refill of his toes after splinting, as pain is controlled until he tries to move his leg. Impression Primary Impression: Fracture of distal end of tibia Qualified Codes: S82.302A - Unspecified fracture of lower end of left tibia, initial encounter for closed fracture Additional Impressions: Seizure disorder COPD Disposition: ADMITTED INPATIENT Condition: Stable Admissions Decision to Admit Reason: Admit from ER (General) Decision to Admit/Date: Jun 08, 2019 Time/Decision to Admit Time: 22:55 Departure-Patient Inst. Referrals: AMANDEEP GENAO DO (PCP/Family) Primary Care Physician NOREEN CHÁVEZ APRN Jun 08, 2019 19:14
[2019-06-08 19:17] LABS: ABG BASE EXCESS 9.9 MMOL/L (-2.5-2.5); ABG OXYGEN SATURATION 89 % (94-100); ABG PCO2 60 MMHG (35-45); ABG PH 7.38 (7.37-7.43); ABG PO2 59 MMHG (79-93); ABG TCO2 37.1 MMOL/L (21.0-31.0); BASOPHILS % (AUTO) 0 % (0-10); EOSINOPHILS % (AUTO) 0 % (0-10); HEMATOCRIT 35 % (40-54); HEMOGLOBIN 11.3 G/DL (13.3-17.7); LYMPHOCYTES # (AUTO) 1.2 X 10^3 (1.0-4.0); LYMPHOCYTES % (AUTO) 13 % (12-44); MEAN CORPUSCULAR HEMOGLOBIN 28 PG (25-34); MEAN CORPUSCULAR HGB CONC 32 G/DL (32-36); MEAN CORPUSCULAR VOLUME 88 FL (80-99); MEAN PLATELET VOLUME 8.1 FL (7.4-10.4); MONOCYTES % (AUTO) 21 % (0-12); NEUTROPHILS % (AUTO) 66 % (42-75); PLATELET COUNT 394 10^3/uL (130-400); RED CELL DISTRIBUTION WIDTH 14.3 % (10.0-14.5); WHITE BLOOD COUNT 9.1 10^3/uL (4.3-11.0)
[2019-06-08 19:18] LABS: PATIENT TEMP 36.7; VENTILATOR NO
[2019-06-08 19:30] LABS: LYMPHOCYTES % (MANUAL) 11 %; MONOCYTES % (MANUAL) 26 %; NEUTROPHILS % (MANUAL) 63 %
--- NOTE | 2019-06-08 19:31 | Diagnostic Imaging Report ---
INDICATION: Left foot buckled, deformity. FINDINGS: 2 views of the tibia and fibula demonstrate comminuted fractures of the distal tibial and fibular shafts. No osseous lesions are identified. IMPRESSION: There are comminuted fractures of the distal tibial and fibular shafts. Dictated by: Dictated on workstation # [id number]
[2019-06-08 19:47] LABS: ALANINE AMINOTRANSFERASE 11 U/L (0-55); ALBUMIN 3.8 GM/DL (3.2-4.5); ALKALINE PHOSPHATASE 136 U/L (40-136); BILIRUBIN,TOTAL 0.2 MG/DL (0.1-1.0); BUN/CREATININE RATIO 13; CALCIUM 8.2 MG/DL (8.5-10.1); CARBON DIOXIDE 32 MMOL/L (21-32); CHLORIDE 90 MMOL/L (98-107); CREATININE SERUM 0.64 MG/DL (0.60-1.30); GFR ESTIMATED > 60; GLUCOSE 75 MG/DL (70-105); POTASSIUM 4.3 MMOL/L (3.6-5.0); SODIUM 132 MMOL/L (135-145); TOTAL PROTEIN 6.6 GM/DL (6.4-8.2)
--- NOTE | 2019-06-08 21:05 | NUR ---
CR QUIJANO admitted to room 408-1, with an admitting diagnosis of Left Tibula / Fibula Fracture, on 06/08/19 from ED via hospital bed , accompanied by staff.CR QUIJANO introduced to surroundings, call light, bed controls, phone, TV, temperature control, lights, meal times, smoking policy, visitor policy, side rail policy, bathrooms and showers. Patient Rights given to patient in the handbook. CR QUIJANO verbalizes understanding that [facility] is not responsible for the loss or damage to any personal effects or valuables that are kept in the patients posession during their hospitalization. CR QUIJANO verbalizes understanding of Interdisciplinary Patient Education. Patient and/or family were informed about the Rapid Response Team and its purpose.
[2019-06-08 21:24] VITALS: BP 141/77
[2019-06-08] MEDS ORDERED: fentaNYL INJECTION 100 MCG/2 ML AMP IV PRN (22:00)
[2019-06-08] MEDS ORDERED: ONDANSETRON 4 MG/2 ML (SDV) Z0FRAN IV PRN (22:00)
[2019-06-08] MEDS ORDERED: RT-ALBUTEROL/IPRATROPIUM 3 ML (DUONEB) VIAL INH PRN (22:30)
[2019-06-08] MEDS ORDERED: RT-ALBUTEROL SULF 2.5 MG/3 ML PRE-MIX VIAL IH PRN (23:00)
--- NOTE | 2019-06-08 23:00 | NUR ---
Received call from Dr. Feng. Went over pt's home meds with and restarted most medications, see order history.
[2019-06-08] MEDS: PHENYTOIN 100 MG (DILANTIN) CAP PO SCH (23:36)
[2019-06-08] MEDS: GABAPENTIN 300 MG (NEURONTIN) CAP PO SCH (23:37)
[2019-06-08] MEDS: carBAMazepine 200 MG (TEGretol) TAB PO SCH (23:37)
[2019-06-09] VITALS: BP 144/84
--- NOTE | 2019-06-09 | NUR ---
Pt is complaining of pain even after giving Fentanyl 50mcg an hour prior. Notified Dr. Moralez of pt complain, received orders to give 25 mcg one time and increase Fentanyl prn q2 from 50 mcg to 75mcg. Will follow order.
[2019-06-09] MEDS ORDERED: fentaNYL INJECTION 100 MCG/2 ML AMP IVP ONE (00:15)
[2019-06-09] MEDS: fentaNYL INJECTION 100 MCG/2 ML AMP IVP PRN ×3 (02:56→10:18)
[2019-06-09] MEDS: carBAMazepine 200 MG (TEGretol) TAB PO SCH ×3 (02:56→15:21)
[2019-06-09] MEDS: lamoTRIgine 25 MG (LaMICtal) TAB PO SCH ×3 (02:56→21:40)
[2019-06-09 04:00] VITALS: BP 128/95
--- NOTE | 2019-06-09 06:30 | NUR ---
Notified Dr. Watts of consult. Dr. Watts informed this RN that pt is not going to have surgery. He just needs placement in a group home.
--- NOTE | 2019-06-09 07:40 | History & Physical ---
History of Present Illness History of Present Illness Reason for visit/HPI Patient came out to the emergency room by ambulance. Tabatha helping patient to go to the bathroom and left leg gave out on him and fell. X-ray of the emergency room shows fractures of tib-fib area Patient has COPD and lung cancer. Patient has history of seizures. Patient high-risk for surgery. Orthopedics for Fracture last night. Have consult with orthopedics today. Patient has a left hip/fib fracture. Patient recently in hospital for pneumonia. Patient having no problems with breathing at home or multicultural services librarian to speak to patient about placement Date of Admission Jun 08, 2019 at 19:30 Time Seen by a Provider: 07:25 I consulted on this patient on 06/09/19 07:25 Attending Physician Micky Genao DO Admitting Physician Micky Genao DO Consult Allergies and Home Medications Allergies Coded Allergies: aspirin (Unverified Allergy, Mild, DOES NOT WORK WELL W/ OTHER MEDS, 10/05/18) ibuprofen (Unverified Allergy, Mild, 10/05/18) Home Medications Albuterol Sulfate 2.5 Mg/3 Ml Vial.neb, 2.5 MG NEB Q4H PRN for SHORTNESS OF BREATH, (Reported) Albuterol Sulfate 1 Puff Puff, 2 PUFF IH Q6H PRN for SHORTNESS OF BREATH, (Reported) Amlodipine Besylate 5 Mg Tablet, 5 MG PO 0800, (Reported) Atorvastatin Calcium 20 Mg Tablet, 10 MG PO 0300, (Reported) TAKES OF A 20MG ONCE DAILY Budesonide/Formoterol Fumarate 10.2 Gm Hfa.aer.ad, 2 PUFF INH BID PRN for WHEN OUT OF ADVAIR, (Reported) Carbamazepine 200 Mg Tablet, 200 MG PO 0300,0800,2300, (Reported) Carbamazepine 200 Mg Tablet, 400 MG PO 1500, (Reported) TAKES 2 (200 MG) TABLETS Cefdinir 300 Mg Capsule, 300 MG PO BID Prescribed by: GENIE HANSON on 06/07/19 0805 Fluticasone/Salmeterol 12 Gm Hfa.aer.ad, 1 PUFF IH BID, (Reported) Gabapentin 300 Mg Capsule, 300 MG PO 2300, (Reported) Gabapentin 600 Mg Tablet, 600 MG PO 0800,1500, (Reported) Hydrocodone/Acetaminophen 1 Each Tablet, 1 TAB PO BID PRN for PAIN-MODERATE (5- 7), (Reported) Lamotrigine 25 Mg Tablet, 25 MG PO 0300, 1500, (Reported) TAKES 25MG @ 0300 25MG + 100MG @1500 Lamotrigine 100 Mg Tablet, 100 MG PO 1500,2300, (Reported) PT TAKES 100MG AT 1500 & 2300 Meloxicam 7.5 Mg Tablet, 15 MG PO 1500, (Reported) Omeprazole 20 Mg Capsule.dr, 20 MG PO DAILY PRN for HEARTBURN, (Reported) Phenytoin Sodium Extended 100 Mg Capsule, 200 MG PO 0800,1500, (Reported) TAKES 2 (100 MG) CAPSULES Phenytoin Sodium Extended 100 Mg Capsule, 100 MG PO 2300, (Reported) Prednisone 10 Mg Tab.ds.pk, 10 MG PO DAILY take 40 mg day 1 take 30 mg day 2 take 20 mg day 3 take 19 mg day 4 stop when they aare all gone Prescribed by: GENIE HANSON on 06/07/19 0805 Ropinirole HCl 0.5 Mg Tablet, 0.5 MG PO 1500, (Reported) Tiotropium [place] 1 Inh Aerp, 1 CAP IH 1500, (Reported) Patient Home Medication List Home Medication List Reviewed: Yes Past Nteblyc-Nsihxd-Krwzud Hx Past Med/Social Hx: Reviewed Nursing Past Med/Soc Hx Patient Social History Marrital Status: cohabiting Employed/Student: retired Alcohol Use: Denies Use Recreational Drug Use: Yes (not current, 15 years ago-ETOH and PO drugs) Drug of Choice: HX OF RX DRUG ABUSE, CLAIMS NONE 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 Former Smoker, Quit: Jan 29, 2017 Type Used: Cigars, Cigarettes 2nd Hand Smoke Exposure: No Recent Foreign Travel: No Contact w/other who traveled: No Recent Hopitalizations: No Recent Infectious Disease Expo: No Immunizations Up To Date Tetanus Booster (TDap): Less than 5yrs Pediatric: Yes Date of Influenza Vaccine: Apr 21, 2018 Seasonal Allergies Seasonal Allergies: Yes Past Medical History Surgeries: Eye Surgery, Gallbladder Respiratory: COPD, Emphysema, Pneumonia Currently Using CPAP: No Currently Using BIPAP: No Cardiac: Heart Murmur, High Cholesterol, Hypertension, Valvular Heart Disease Neurological: Neuropathy, Seizure Disorder, Vertigo Reproductive: No Sexually Transmitted Disease: No HIV/AIDS: No Musculoskeletal: Arthritis, Fractures Loss of Vision: Denies Hearing Impairment: Denies Cancer: Bone, Lung Did You Recieve Any Treatments: Yes What Type of Treatment Did You: Chemotherapy History of Blood Disorders: No Adverse Reaction to Blood Salcedo: No Family History Diabetes mellitus 19 MOTHER Hypercholesterolemia 19 FATHER Hypertension 19 FATHER Heart Disease Limited to records review due to clinical condition. Review of Systems Constitutional: weakness EENTM: no symptoms reported Respiratory: other (History of COPD and lung cancer) Cardiovascular: no symptoms reported Gastrointestinal: heartburn Genitourinary: no symptoms reported Physical Exam Vital Signs Vital Signs - First Documented 06/08/19 06/08/19 18:28 20:45 Temp 36.8 Pulse 81 Resp 18 B/P (MAP) 138/86 (103) Pulse Ox 93 O2 Delivery Room Air O2 Flow Rate 2.00 Capillary Refill : Less Than 3 SecondsLess Than 3 Seconds Height, Weight, BMI Height: 6'0" Weight: 174lbs. 3.0oz. 79.648121oo; 25.17 BMI Method:Stated General Appearance: No Apparent Distress, WD/WN Eyes: Bilateral Eye Normal Inspection HEENT: Normal ENT Inspection Neck: Full Range of Motion, Normal Inspection Respiratory: No Accessory Muscle Use, No Respiratory Distress, Decreased Breath Sounds Cardiovascular: Regular Rate, Rhythm, No Murmur Gastrointestinal: Non Tender, Soft Assessment/Plan Assessment and Plan Left hip/fib fracture. COPD. Lung cancer. Seizures. Hyperlipidemia. Hypertension. Patient high risk for surgery Admission Diagnosis Admission Status: Observation Clinical Quality Measures DVT/VTE Risk/Contraindication: Risk Factor Score Per Nursin RFS Level Per Nursing on Admit: 4+=Very High MICKY GENAO DO Jun 09, 2019 07:40
[2019-06-09 08:00] VITALS: BP 132/72
[2019-06-09] MEDS: CEFDINIR 300 MG (OMNICEF) CAP PO SCH ×2 (08:04→21:39)
[2019-06-09] MEDS: amLODIPine 5 MG (NORVASC) TAB PO SCH (08:04)
[2019-06-09] MEDS: PHENYTOIN 100 MG (DILANTIN) CAP PO SCH ×2 (08:05→15:26)
[2019-06-09] MEDS: GABAPENTIN 600 MG (NEURONTIN) TAB PO SCH ×2 (08:08→15:21)
[2019-06-09] MEDS: ENOXAPARIN 40 MG/0.4 ML (LOVENOX) SYR SC SCH (08:30)
--- NOTE | 2019-06-09 08:52 | NUR ---
SPOKE WITH THE PT TO COMPLETE THE MED REC- PT WAS DISCHARGED YESTERDAY AND THEN WAS READMITTED LAST NIGHT. I HAD COMPLETED HIS MED REC DURING HIS PREVIOUS STAY, AND I UPDATED THE CURRENT MED REC USING HIS DISCHARGE ORDERS. I SPOKE WITH THE PT AND CONFIRMED THE START OF CEFDINIR. PT ALREADY HAD AN RX FOR PREDNISONE AND WAS CONTINUING THAT THERAPY
[2019-06-09] MEDS ORDERED: NON-FORMULARY MEDICATION 1 EA EA (Prednisone 10 MG) PO SCH (09:00)
[2019-06-09] MEDS ORDERED: ENOXAPARIN 40 MG/0.4 ML (LOVENOX) SYR SC SCH (09:00)
[2019-06-09] MEDS ORDERED: CALCIUM CARBONATE 500 MG (TUMS) TAB.CHEW PO PRN (09:00)
[2019-06-09] MEDS ORDERED: PANTOPRAZOLE 20 MG TABLET (PROTONIX) PO PRN (09:00)
[2019-06-09] MEDS: RT-ALBUTEROL/IPRATROPIUM 3 ML (DUONEB) VIAL INH SCH ×4 (09:06→22:02)
--- NOTE | 2019-06-09 09:27 | Physical Therapy Evaluation ---
PT Evaluation-General Medical Diagnosis Admission Date Jun 08, 2019 at 19:30 Medical Diagnosis: left tib/fib fx Onset Date: Jun 08, 2019 Therapy Diagnosis Therapy Diagnosis: impaired mobility, strength, endurance Height/Weight Height (Feet): 6 Height (Inches): 0 Weight (Pounds): 174 Weight (Ounces): 3.0 Precautions Precautions/Isolations: Fall Prevention, Standard Precautions Weight Bear Status Right Lower Extremity: Right Weight Bearing/Tolerated Left Lower Extremity: Left Non Weight Bearing Referral Physician: Jung Reason for Referral: Evaluation/Treatment Medical History Pertinent Medical History: Arthritis, COPD, Heart Failure, HTN, Neuropathy, Post Polio Syndrome, Smoking Additional Medical History Past Medical History Surgeries: Eye Surgery, Gallbladder Respiratory: COPD, Emphysema, Pneumonia Currently Using CPAP: No Currently Using BIPAP: No Cardiac: Heart Murmur, High Cholesterol, Hypertension, Valvular Heart Disease Neurological: Neuropathy, Seizure Disorder, Vertigo Reproductive: No Sexually Transmitted Disease: No HIV/AIDS: No Musculoskeletal: Arthritis, Fractures Loss of Vision: Denies Hearing Impairment: Denies Cancer: Bone, Lung Did You Recieve Any Treatments: Yes What Type of Treatment Did You: Chemotherapy History of Blood Disorders: No Adverse Reaction to Blood Salcedo: No Reviewed History: Yes Social History Home: Single Level Current Living Status: Significant Other Entry Into Home: Stairs With Railing PT Steps Into Home: 3 Prior Prior Level of Function SCALE: Activities may be completed with or without assistive devices. 6-Oaeatpgxqm-kadywkd completes the activity by him/herself with no assistance from a helper. 5-Set-up or Clean-up Assistance-helper sets up or cleans up; patient completes activity. Grandy assists only prior to or following the activity. 4-Supervision or Touching Assistance-helper provides verbal cues and/or touching/steadying and/or contact guard assistance as patient completes activity. Assistance may be provided throughout the activity or intermittently. 3-Partial/Moderate Assistance-helper does LESS THAN HALF the effort. Grandy lifts, holds or supports trunk or limbs, but provides less than half the effort. 2-Substantial/Maximal Assistance-helper does MORE THAN HALF the effort. Grandy lifts or holds trunk or limbs and provides more than half the effort. 3-Tosmcvlfl-oaiait does ALL the effort. Patient does none of the effort to complete the activity. Or, the assistance of 2 or more helpers is required for the patient to complete the activity. If activity was not attempted, code reason: 7-Patient Refused. 9-Not Applicable-not attempted and the patient did not perform the activity before the current illness, exacerbation or injury. 10-Not Attempted due to Environmental Limitations-(lack of equipment, weather restraints, etc.). 88-Not Attempted due to Medical Conditions or Safety Concerns. Bed Mobility: 6 Transfers (B,C,W/C): 6 Gait: 6 Stairs: 6 Indoor Mobility (Ambulation): Independent Stairs: Independent Prior Devices Use: Walker Prior Device Use: SPC PT Evaluation-Current Subjective Patient in bed pre tx, agrees reluctantly to PT after encouragement from ther apy, has 5/10 pain in left leg. Will be co-treating with OT for bed mobility and grooming Pt/Family Goals none stated Objective Patient Orientation: Person, Place Attachments: Oxygen, Mena Catheter ROM/Strength ROM Lower Extremities limited in LLE Sensory Hearing: Functional Transfers Roll Left to Right (QC): 2 Sit to Lying (QC): 2 Lying to Sitting/Side of Bed(Q: 2 Patient max assist to sit at the edge of the bed, sat for about 8 min with left leg propped on chair. PT assist for sitting while OT performed grooming. Treatment bed mobility, supine <-> sit. Assessment/Needs Patient has impaired mobility, strength, endurance. He was able to perform a SLR in bed with his left leg without assist. Rehab Potential: Guarded PT School Adjustment Counselor Goals Chcf Goals PT Chcf Goals Time Frame: Jun 16, 2019 Roll Left & Right (QC): 3 Sit to Lying (QC): 3 Lying-Sitting on Side/Bed(QC): 3 Sit to Stand (QC): 3 Chair/Xsd-my-Repxl Xfer(QC): 3 PT Plan Problem List Problem List: Activity Tolerance, Functional Strength, Safety, Balance, Gait, Transfer, Bed Mobility, ROM Treatment/Plan Treatment Plan: Continue Plan of Care Treatment Plan: Bed Mobility, Education, Functional Activity Jessica, Functional Strength, Gait, Safety, Therapeutic Exercise, Transfers Treatment Duration: Jun 16, 2019 Frequency: 6 times per week Estimated Hrs Per Day: .25 hour per day Patient and/or Family Agrees t: Yes Safety Risks/Education Patient Education: Transfer Techniques, Correct Positioning, Safety Issues Teaching Recipient: Patient Teaching Methods: Demonstration, Discussion Response to Teaching: Reinforcement Needed Discharge Recommendations Plan Patient will perform bed mobility and transfer training, balance and endurance training, functional strengthening, gait training, and education, to improve functional mobility and independence at home. Therapy Discharge Recommendati: Other, See Comments (NH), Home & Family Time/GCodes Time In: 902 Time Out: 915 Total Billed Treatment Time: 13 Total Billed Treatment 1 visit CAROLYN VELAZQUEZ PT Jun 09, 2019 09:27
--- NOTE | 2019-06-09 09:50 | Occupational Therapy Eval ---
OT Evaluation-General/PLF Medical Diagnosis Admission Date Jun 08, 2019 at 19:30 Medical Diagnosis: left tib/fib fx Onset Date: Jun 08, 2019 Therapy Diagnosis Therapy Diagnosis: Weakness, Decreased ADL skills Height/Weight Height (Feet): 6 Height (Inches): 0 Weight (Pounds): 174 Weight (Ounces): 3.0 Precautions Precautions/Isolations: Fall Prevention, Standard Precautions Safety Interventions: Reorient-PRN Weight Bear Status Weight Bearing Restriction: Non Weight Bearing Location Restriction: L LE Referral Physician: Jung Maria Reason: Activity Tolerance, Self Care, Evaluation/Treatment, Strengthening/ROM Medical History Pertinent Medical History: Atrial Fib, Arthritis, COPD, Heart Failure, HTN, Neuropathy, Post Polio Syndrome, Smoking Additional Medical History Polio, left hemiparesis Current History Pt. was in hospital for pneumonia. Went home and fell. Pt. fx left Tib/fib. No surgery pending. NWB left LE. Reviewed History: Yes Social History Home: Single Level Current Living Status: Significant Other Entry Into Home: Stairs With Railing Steps Into Home: 3 ADL-Prior Level of Function SCALE: Activities may be completed with or without assistive devices. 5-Igqftvayho-eaibfbt completes the activity by him/herself with no assistance from a helper. 5-Set-up or Clean-up Assistance-helper sets up or cleans up; patient completes activity. Nunez assists only prior to or following the activity. 4-Supervision or Touching Assistance-helper provides verbal cues and/or touching/steadying and/or contact guard assistance as patient completes activity. Assistance may be provided throughout the activity or intermittently. 3-Partial/Moderate Assistance-helper does LESS THAN HALF the effort. Nunez lifts, holds or supports trunk or limbs, but provides less than half the effort. 2-Substantial/Maximal Assistance-helper does MORE THAN HALF the effort. Nunez lifts or holds trunk or limbs and provides more than half the effort. 2-Oukhplekz-jcifbt does ALL the effort. Patient does none of the effort to complete the activity. Or, the assistance of 2 or more helpers is required for the patient to complete the activity. If activity was not attempted, code reason: 7-Patient Refused. 9-Not Applicable-not attempted and the patient did not perform the activity before the current illness, exacerbation or injury. 10-Not Attempted due to Environmental Limitations-(lack of equipment, weather restraints, etc.). 88-Not Attempted due to Medical Conditions or Safety Concerns. ADL PLOF Comments Pt. is inconsistent at times with answers. States that he has a new walker, one with a seat. But states that he hasn't had to use it. Pt. reports that he was independent at home, but also states that his significant other showers him, and dresses him. He states that he also has caregiving assistance, but that he doesn't need it. Self Care: Needed Some Help Functional Cognition: Unknown DME/Equipment: Tub/Shower DME/Equipment Comments 4 WW, cane OT Current Status Subjective Pt. does not report pain level, but grimaces when left LE is moved. Pt. also reports that back of cast is irritating skin. Appearance Pt. in bed. Required encouragement to participate. Mental Status/Objective Patient Orientation: Person, Place Attachments: Oxygen Current Upper Extremity ROM Left- impaired from post polio. Right- WFL ADL-Treatment On/Off Footwear (QC): 1 Other Treatments Pt. participated in partial co-treatment with OT/PT. PT facilitated bed mobility while OT facilitated brushing hair, and dynamic sitting balance. Pt. required max x 2 for bed mobility and supine-sit. Pt. sat on side of bed approximately 10 minutes. Noted "jerking" motions at times. Pt. states that this is from his seizure disorder, and is not new. Max x 2 sit-supine and bed mobility for better positioning. OT placed mole-skin into cast at back of leg to keep from rubbing. No redness noted. All needs met. Education OT Patient Education: Correct positioning, Modified ADL techniques, Progress toward Goal/Update tx plan, Purpose of tx/functional activities, Reviewed precautions, Rehab process, Transfer techniques Teaching Recipient: Patient Teaching Methods: Demonstration, Discussion Response to Teaching: Verbalize Understanding, Return Demonstration OT Prison Goals Prison Goals Time Frame: Jun 16, 2019 Eating (QC): 6 Oral Hygiene (QC): 5 Toileting Hygiene (QC): 3 Additional Goals: 1-Demonstrate ADL Tasks, 2-Verbalize Understanding, 3- ImproveStrength/Jessica 1=Demonstrate adherence to instructed precautions during ADL tasks. 2=Patient will verbalize/demonstrate understanding of assistive devices/modifications for ADL. 3=Patient will improve strength/tolerance for activity to enable patient to perform ADL's. Pt. has assistance at home for all ADLs. Goals will be to increase bed mobility, grooming tasks, toileting tasks, and overall strength. OT Education/Plan Problem List/Assessment Assessment: Decreased Activ Tolerance, Decreased UE Strength, Dependent Transfers, Impaired Bed Mobility, Impaired Cognition, Impaired Coordination, Impaired Funct Balance, Impaired I ADL's, Impaired Self-Care Skills, Restricted Funct UE ROM Discharge Recommendations Plan/Recommendations: Continue POC Therapy Discharge Recommendati: 24 Hour Supervision Treatment Plan/Plan of Care Treatment,Training & Education: Yes Patient would benefit from OT for education, treatment and training to promote independence in ADL's, mobility, safety and/or upper extremity function for ADL's. Plan of Care: ADL Retraining, Functional Mobility, UE Funct Exercise/Act Treatment Duration: Jun 16, 2019 Frequency: 5 times per week Estimated Hrs Per Day: .25 hour per day Agreement: Yes Rehab Potential: Guarded Time/GCodes Start Time: 08:55 Stop Time: 09:20 Total Time Billed (hr/min): 25 Billed Treatment Time 2723-8480 1, EVH x 8minutes 1797-8127 FA x 17 [id number] with PT. Please see above note for designated roles. JANNA RANGEL OT Jun 09, 2019 09:50
--- NOTE | 2019-06-09 10:07 | NUR ---
Met with pt and his Significant Other,Tabatha, to discuss continued care plans. Pt was still rating his pain as 4 and did appear mildly cluded in his thinking. He currently lives with Tabatha who is a TEMPERER. He receives [facility] Community [facility] Services which pays for assistance in the home which is Tabatha's adult daughter who is also a TEMPERER. Discussed options of custodial placement They prefer caring fpr him in the home. They would consider short-term Acute Rehab to assist in his transfer home. Currently, pain control seems to be an issue and not sure the DME equipment he would need at home. Contacted his [employer] manager transplant for her assistance and waiting call back.
[2019-06-09 11:30] VITALS: BP 150/88
--- NOTE | 2019-06-09 11:36 | NUR ---
CALLED DR GENAO. NOTIFIED THAT : PATIENT HAD A 3 MIN SEIZURE AT 1015. VELVET -CAREGIVER WAS IN ROOM. SHE STATED THAT IS NORMAL FOR HIM HE HAS THESE EVERY FULL BRYANT. PATIENT WOKE UP AT 1125 CONFUSED. VELVET STATED THAT HE IS PULLING AT STUFF. VITALS STABLE. FENTANYL STOPPED AND HYDROCODONE STARTED.
[2019-06-09] MEDS: RT-ADVAIR HFA 115/21 MCG PER PUFF IH SCH ×2 (11:39→22:05)
[2019-06-09] MEDS ORDERED: HYDROcodone/APAP 5 MG/325 MG (LORTAB) TAB PO PRN ×2 (11:45)
--- NOTE | 2019-06-09 13:29 | NUR ---
CALLED DR GENAO. PATIENT'S CAREGIVER REPORTED THAT HE IS NO LONGER ABLE TO TAKE HYDROCODONE. IT MAKES HIM CONFUSED. SHE STATED THAT THEY USE TYLENOL FOR PAIN, DR GENAO STOPPED THE HYDROCODONE, FENTANYL MAKES PATIENT CONFUSED AND TRAMADOL WILL LOWER THE SEIZURE THRESHOLD. HE ORDERED TYLENOL FOR PAIN CONTROL.
--- NOTE | 2019-06-09 13:46 | Progress Note ---
Standard Progress Note Progress Notes/Assess & Plan Date Seen by a Provider: Jun 09, 2019 Time Seen by a Provider: 13:45 Final Diagnosis patient seen and examined rec Non Op treatment for now due to comorbitities SHARON RUBY MD Jun 09, 2019 13:46
[2019-06-09] MEDS: ACETAMINOPHEN 500 MG TAB (TYLENOL) PO PRN (13:47)
--- NOTE | 2019-06-09 14:17 | CONSULTATION REPORT ---
DATE OF SERVICE: 06/09/2019 REASON FOR CONSULTATION: Left tibia/fibula fracture. HISTORY OF PRESENT ILLNESS: The patient is a 63-year-old gentleman who was recently discharged from the hospital with advanced COPD who fell at home and was found to have a closed neurovascularly intact left distal tibia and fibula fracture. The patient reports that this is his polio affected leg. He reports he did ambulate prior to his fall. He also has a history of by his report lung cancer. PHYSICAL EXAMINATION: The patient is on oxygen and short of breath in conversation. His left lower extremity demonstrates no pain with passive movement of the toes with symmetric pulses and brisk capillary refill. His splint is well molded and well fitted. IMPRESSION: Left tibia/fibula fracture. PLAN: Due to the patient's tenuous medical status, I would recommend nonoperative intervention currently. If this goes on to nonunion, then surgical intervention could be considered, but I feel that he is at very high risk for this procedure. I discussed this with he and his significant other. He should remain nonweightbearing left lower extremity. Job ID: [id number] DocumentID: [id number] Dictated Date: 06/09/2019 13:45:19 Crystal Report Developer Date: 06/09/2019 14:16:35 Dictated By: SHARON RUBY MD
--- NOTE | 2019-06-09 14:30 | NUR ---
IRF Evaluation Order received to evaluate patient for the ARU. Chart review complete and it has been determined patient would not be able to tolerate intensive therapies, at this time. CM/SS notified of determination. Thank you for this referral.
[2019-06-09] MEDS ORDERED: TIOTROPIUM BROMIDE (SPIRIVA) 5'S INHALER IH SCH (15:00)
[2019-06-09] MEDS: UMECLIDINIUM BROMIDE (INCRUSE ELLIPTA) 7'S IH SCH (15:14)
[2019-06-09] MEDS: MELOXICAM 7.5 MG (MOBIC) TABLET PO SCH (15:20)
[2019-06-09] MEDS: rOPINIRole 0.25 MG (REQUIP) TAB PO SCH (15:23)
--- NOTE | 2019-06-09 15:26 | NUR ---
Pt was denied Acute Rehab admission. Pt and Significant Other requesting his discharge home to continue his care. [facility], and she will work on increasing his caregiving hours with in the home. Discussed equipment needs. Pt would like to have a light wt.wheelchair that can be used to transport him in and out of home, a hospital bed if possible and bedside commode. will discuss with .Family requesting time to arrange for 24 hour care and are able to assume his care if discharged on Friday.
[2019-06-09 16:14] VITALS: BP 125/82
[2019-06-09 20:32] VITALS: BP 130/80
[2019-06-10] VITALS: BP 136/79
[2019-06-10] MEDS: PHENYTOIN 100 MG (DILANTIN) CAP PO SCH ×4 (00:05→23:15)
[2019-06-10] MEDS: carBAMazepine 200 MG (TEGretol) TAB PO SCH ×5 (00:06→23:15)
[2019-06-10] MEDS: GABAPENTIN 300 MG (NEURONTIN) CAP PO SCH ×2 (00:06→23:15)
[2019-06-10 04:00] VITALS: BP 133/77
[2019-06-10] MEDS: ACETAMINOPHEN 500 MG TAB (TYLENOL) PO PRN ×3 (04:08→23:17)
--- NOTE | 2019-06-10 07:45 | Progress Note ---
Subjective Time Seen by a Provider: 07:42 Subjective/Events-last exam Patient seen by orthopedics. Patient to high of a risk for surgery. Patient and significant other wants to take him home. Plan to discharge most likely tomorrow would've wants to go today okay with me. Tib-fib fracture left leg or COPD. Lung cancer. Seizures. Patient resting comfortably today. nutrition services assistant worked things out Objective Exam Vital Signs Date Time Temp Pulse Resp B/P (MAP) Pulse Ox O2 Delivery O2 Flow Rate FiO2 06/10/19 04:00 37.4 90 20 133/77 (95) 93 Nasal Cannula 4.00 06/10/19 00:00 37.3 97 21 136/79 (98) 92 Nasal Cannula 4.00 06/09/19 20:32 37.3 86 20 130/80 (97) 93 Nasal Cannula 4.00 06/09/19 20:00 95 Nasal Cannula 4.00 06/09/19 16:14 36.9 87 22 125/82 (96) 97 Nasal Cannula 4.00 06/09/19 15:14 94 Nasal Cannula 4.00 06/09/19 11:30 36.9 90 24 150/88 (108) 92 Nasal Cannula 4.00 06/09/19 11:28 98 Nasal Cannula 4.00 06/09/19 08:00 94 Nasal Cannula 4.00 06/09/19 08:00 37.1 81 22 132/72 (92) 94 Nasal Cannula 4.00 I & O 06/10/19 06:59 Intake Total 2780 ml Output Total 3200 ml Balance -420 ml Capillary Refill : Less Than 3 SecondsLess Than 3 Seconds General Appearance: No Apparent Distress, WD/WN HEENT: Normal ENT Inspection Neck: Full Range of Motion, Normal Inspection Respiratory: No Accessory Muscle Use, No Respiratory Distress, Decreased Breath Sounds Cardiovascular: Regular Rate, Rhythm, No Murmur Gastrointestinal: non tender, soft Assessment/Plan Assessment/Plan Assess & Plan/Chief Complaint Left tib-fib fracture. COPD. Seizures. Lung cancer. Patient plans on going home and not jail Clinical Quality Measures Admission Status Admission Dx Left hip/fib fracture. COPD. Lung cancer. Seizures. Hyperlipidemia. Hypertension. Patient high risk for surgery DVT/VTE Risk/Contraindication: Risk Factor Score Per Nursin RFS Level Per Nursing on Admit: 4+=Very High Contraindications-Mechi: Other *list below* AMANDEEP GENAO DO Jun 10, 2019 07:45
[2019-06-10 07:48] VITALS: BP 143/83
[2019-06-10] MEDS: ENOXAPARIN 40 MG/0.4 ML (LOVENOX) SYR SC SCH (08:24)
[2019-06-10] MEDS: CEFDINIR 300 MG (OMNICEF) CAP PO SCH ×2 (08:25→20:30)
[2019-06-10] MEDS: lamoTRIgine 25 MG (LaMICtal) TAB PO SCH ×2 (08:25→20:30)
[2019-06-10] MEDS: amLODIPine 5 MG (NORVASC) TAB PO SCH (08:25)
[2019-06-10] MEDS: GABAPENTIN 600 MG (NEURONTIN) TAB PO SCH ×2 (08:26→14:53)
--- NOTE | 2019-06-10 09:00 | NUR ---
Pt currently requires 24 hour care. It has been recommended that he seek senior care placement. Joel and his Significant other reject senior care care plan and would like for him to be discharged to their home. Pt's Significant Other is a SHRIMP P[employer]ER as is her daughter who is a paid caregiver for pt. Family is requesting a lt. wt. wheel chair to assist in his bathing,toileting, and transfers due to his non-wt bearing status. Family also asking for hospital bed and bedside commode as pt has not been out of bed and is a 2 person transfer. He has multiple medical conditions which require elevated head rest and adjustable to aid in transfers. will fax scripts to DME as pt is receiving oxygen from [facility] and is choosing them as his provider,
--- NOTE | 2019-06-10 09:45 | Physical Therapy Daily Note ---
PT Daily Note-Current Subjective Patient states he is going home tomorrow. Agrees to PT. Mental Status Patient Orientation: Person, Time, Situation Attachments: Oxygen, Mena Catheter Transfers SCALE: Activities may be completed with or without assistive devices. 6-Ddxfzilmfs-yxyyxww completes the activity by him/herself with no assistance from a helper. 5-Set-up or Clean-up Assistance-helper sets up or cleans up; patient completes activity. Quail assists only prior to or following the activity. 4-Supervision or Touching Assistance-helper provides verbal cues and/or touching/steadying and/or contact guard assistance as patient completes activity. Assistance may be provided throughout the activity or intermittently. 3-Partial/Moderate Assistance-helper does LESS THAN HALF the effort. Quail lifts, holds or supports trunk or limbs, but provides less than half the effort. 2-Substantial/Maximal Assistance-helper does MORE THAN HALF the effort. Quail lifts or holds trunk or limbs and provides more than half the effort. 0-Ignogbybd-aczlrc does ALL the effort. Patient does none of the effort to complete the activity. Or, the assistance of 2 or more helpers is required for the patient to complete the activity. If activity was not attempted, code reason: 7-Patient Refused. 9-Not Applicable-not attempted and the patient did not perform the activity before the current illness, exacerbation or injury. 10-Not Attempted due to Environmental Limitations-(lack of equipment, weather restraints, etc.). 88-Not Attempted due to Medical Conditions or Safety Concerns. Sit to Lying (QC): 6 Lying to Sitting/Side of Bed(Q: 6 patient sat EOB x 10 min performing exercises. Weight Bearing Right Lower Extremity: Right Weight Bearing/Tolerated Left Lower Extremity: Left Non Weight Bearing Exercises Supine Ex: Quad Set, Heel Slides, Straight leg raise Supine Reps: 10 (bilaterally) Seated Therapy Exercises: Long arc quads Seated Reps: 15 (bilaterally) Assessment Patient tolerated treatment well and adamantly declined OOB activity. Plan dismissal tomorrow to home with caregivers. Patient is NWB left LE PT Nursing Home Goals Sanding Supervisor Goals PT Nursing Home Goals Time Frame: Jun 16, 2019 Roll Left & Right (QC): 3 Sit to Lying (QC): 3 Lying-Sitting on Side/Bed(QC): 3 Sit to Stand (QC): 3 Chair/Arq-vn-Uvrco Xfer(QC): 3 PT Plan Treatment/Plan Treatment Plan: Continue Plan of Care Treatment Plan: Bed Mobility, Education, Functional Activity Jessica, Functional Strength, Gait, Safety, Therapeutic Exercise, Transfers Treatment Duration: Jun 16, 2019 Frequency: 6 times per week Estimated Hrs Per Day: .25 hour per day Patient and/or Family Agrees t: Yes Time/GCodes Time In: 851 Time Out: 901 Total Billed Treatment Time: 10 Total Billed Treatment 1 visit EX 10 min LAVON LAMAS PT Jun 10, 2019 09:44
--- NOTE | 2019-06-10 10:30 | Occupational Ther Daily Note ---
OT Current Status-Daily Note Subjective Pt alert, lying in bed. Pt states, "I don't have to get up again do I? I just did and want to stay in bed." Pt agrees to therapy if he completes in bed. Mental Status/Objective Patient Orientation: Person, Place, Time, Situation Attachments: IV, Oxygen ADL-Treatment Pt declined any ADLs today. Therapy Code Descriptions/Definitions Functional [place] Measure: 0=Not Assessed/NA 4=Minimal Assistance 1=Total Assistance 5=Supervision or Setup 2=Maximal Assistance 6=Modified [place] 3=Moderate Assistance 7=Complete IndependenceSCALE: Activities may be completed with or without assistive devices. 8-Cvmwoslndm-bvmybhe completes the activity by him/herself with no assistance from a helper. 5-Set-up or Clean-up Assistance-helper sets up or cleans up; patient completes activity. Elnora assists only prior to or following the activity. 4-Supervision or Touching Assistance-helper provides verbal cues and/or touching/steadying and/or contact guard assistance as patient completes activity. Assistance may be provided throughout the activity or intermittently. 3-Partial/Moderate Assistance-helper does LESS THAN HALF the effort. Elnora lifts, holds or supports trunk or limbs, but provides less than half the effort. 2-Substantial/Maximal Assistance-helper does MORE THAN HALF the effort. Elnora lifts or holds trunk or limbs and provides more than half the effort. 7-Fglehkgmn-iptfve does ALL the effort. Patient does none of the effort to complete the activity. Or, the assistance of 2 or more helpers is required for the patient to complete the activity. If activity was not attempted, code reason: 7-Patient Refused. 9-Not Applicable-not attempted and the patient did not perform the activity before the current illness, exacerbation or injury. 10-Not Attempted due to Environmental Limitations-(lack of equipment, weather restraints, etc.). 88-Not Attempted due to Medical Conditions or Safety Concerns. Other Treatment Pt has decreased B shldr ROM due to arthritis, per pt. Pt demonstrated WFL for shldr AROM. Pt completed 3 UE exercises with cues for technique, positioning and modifications for limited ROM and decreased activity tolerance. 10 shldr flexions 1 set, elbow flexion 20 reps 1 set, isometric tricep exercises 10 reps 1 set then due to decreased activity tolerance 2nd set 5 reps for all. Pt fell asleep during last set. After therapy, pt lying in bed with call light/phone in reach. All needs met in room. OT Correction Goals Motor Vehicle Inspector Goals Time Frame: Jun 16, 2019 Eating (QC): 6 Oral Hygiene (QC): 5 Toileting Hygiene (QC): 3 Additional Goals: 1-Demonstrate ADL Tasks, 2-Verbalize Understanding, 3-Improve Strength/Jessica 1=Demonstrate adherence to instructed precautions during ADL tasks. 2=Patient will verbalize/demonstrate understanding of assistive devices/modifications for ADL. 3=Patient will improve strength/tolerance for activity to enable patient to pe rform ADL's. OT Education/Plan Problem List/Assessment Assessment: Decreased Activ Tolerance, Decreased UE Strength, Impaired Self- Care Skills Discharge Recommendations Plan/Recommendations: Continue POC Treatment Plan/Plan of Care Patient would benefit from OT for education, treatment and training to promote independence in ADL's, mobility, safety and/or upper extremity function for ADL's. Plan of Care: ADL Retraining, Functional Mobility, UE Funct Exercise/Act Treatment Duration: Jun 16, 2019 Frequency: 5 times per week Estimated Hrs Per Day: .25 hour per day Agreement: Yes Rehab Potential: Guarded Time/GCodes Start Time: 09:01 Stop Time: 09:16 Total Time Billed (hr/min): 15 Billed Treatment Time 1 visit-EX 1 (15 min) JAGRUTI PEREZ Jun 10, 2019 10:30
[2019-06-10] MEDS: RT-ALBUTEROL/IPRATROPIUM 3 ML (DUONEB) VIAL INH SCH ×4 (10:59→19:36)
[2019-06-10] MEDS: RT-ADVAIR HFA 115/21 MCG PER PUFF IH SCH ×2 (11:02→19:36)
[2019-06-10] MEDS: MELOXICAM 7.5 MG (MOBIC) TABLET PO SCH (14:53)
[2019-06-10] MEDS: rOPINIRole 0.25 MG (REQUIP) TAB PO SCH (14:53)
[2019-06-10 16:00] VITALS: BP 126/74
[2019-06-10] MEDS: UMECLIDINIUM BROMIDE (INCRUSE ELLIPTA) 7'S IH SCH (16:20)
--- OUTSIDE RECORDS SUMMARY | 2019-06-10 21:53 | XMS REPORT | Clinical Summary ---
Author Author [facility] Organization [facility] Address Unknown Phone Unavailable Care Team Providers Care Inventory Worker Name Role Phone Efra Valentino MD Unavailable Unavailable Source Comments Some departments are not documenting in the electronic medical record. If you d o not see the information that you expected, contact Release of Information in [facility] [employer] Information Management department at [phone] for further assistan ce in locating additional records.[facility] Allergies Comments Active Allergy Reactions Severity [...]
--- OUTSIDE RECORDS SUMMARY | 2019-06-10 22:10 | XMS REPORT | Continuity of Care Document ---
Author Organization Unknown Address Unknown Phone Unavailable Allergies Active Description Code Type Severity Reaction Onset Reported/Identified Relationship to Patient Clinical Status Yes AMOXILLEN AMOXILLEN Mild N/A 07/17/2008 Yes Penicillins [id number] Drug Aller gy Mild N/A 08/02/2008 Yes aspirin Drug Allergy N/A N/A 12/10/2013 Yes aspirin [id number] Drug Allergy Mild DOES NOT WORK W 10/05/2018 Yes ibuprofen [id number] Drug Allergy Mild N/A 10/05/2018 Medications There [...] CHEMOTHERAP 02/27/1422 STEPHEN PRICE Ot Z79.899 OTHER SENIOR CARE (CURRENT) DRUG THERAPY 02/27/1422 STEPHEN PRICE Ot [...] 09/17/2013 MARIAJOSE LASSITER CELESTE Erma Ot V06.1 [id number], COMBINED [ 11/02/2013 VANESSA GUTHRIE MD Ot [...] Ot 780.3 9 05/02/2014 GELLENDER DO, AMANDEEP Pienda Ot 825.25 05/02/2014 GELLENDER DO, AMANDEEP Pineda [...] MD Ot 780.3 9 08/26/2014 GELLENDER DO, AAMNDEEP Pineda Ot 825.25 08/26/2014 GELLENDER DO, AMANDEEP [...] Pineda Ot 786.2 03/13/2015 GELLENDER DO, AMANDEEP Pnieda Ot 783.21 03/13/2015 GELLENDER DO, AMANDEEP Pineda [...] Pineda Ot E928.9 ACCIDENT NOS 08/10/2015 AMANDEEP GENOA DO Miriam Ot 780.39 OTHER CONVULSIONS 08/10/2015 [...] Ot F17.210 NICOTINE DEPENDENCE, CIGARETTES, UNCOMPL 08/15/2015 HCADWICK LASSITER AMANDEEP Miriam Ot G40.909 EPILEPSY, UNSP, [...] Ot Z23 ENCOUNTER FOR IMMUNIZATION 10/24/2015 NOREEN HCÁVEZ APRN Ot Z79.899 OTHER SENIOR CARE (CURRENT) DRUG THERAPY 10/25/2015 NOREEN CHÁVEZ APRN Ot F17.210 NICOTINE DEPENDENCE, CIGARETTES, UNCOMPL 10/25/2015 CHÁVEZ, PETER J DRY ICE MAKER Ot G40.909 EPILEPSY, UNSP, NOT INTRACTABLE, WITHOUT 10/25/2015 NOREEN CHÁVEZ DRY ICE MAKER Ot M47.892 OTHER SPONDYLOSIS, CERVICAL REGION 10/25/2015 NOREEN CHÁVEZ DRY ICE MAKER Ot R42 DIZZINESS AND GIDDINESS 10/25/2015 NOREEN CHÁVEZ DRY ICE MAKER Ot S01.312A LACERATION WITHOUT FOREIGN BODY OF LEFT 10/25/2015 NOREEN CHÁVEZ DRY ICE MAKER Ot W01.0XXA FALL SAME LEV FROM SLIP/TRIP W/O STRIKE 10/25/2015 NOREEN CHÁVEZ DRY ICE MAKER Ot Y92.[address] IN UNSP NON-INSTITUT (PRIVATE 10/25/2015 NOREEN CHÁVEZ DRY ICE MAKER Ot Y99 .8 OTHER EXTERNAL CAUSE STATUS 10/25/2015 NOREEN CHÁVEZ DRY ICE MAKER Ot Z23 ENCOUNTER FOR IMMUNIZATION 10/25/2015 NOREEN CHÁVEZ APRN Ot Z79.899 OTHER SENIOR CARE (CURRENT) DRUG THERAPY 11/01/2015 Ot 272.4 HYPE RLIPIDEMIA NEC/NOS 11/01/2015 Ot 496 [facility] AI RWAY OBSTRUCT NEC 11/01/2015 Ot 780.39 OTH ER CONVULSIONS 11/01/2015 Ot 780.39 OT ER CONVULSIONS 11/01/2015 Ot 272.4 HYPE RLIPIDEMIA NEC/NOS 11/01/2015 Ot 780.39 OTH ER CONVULSIONS 11/01/2015 Ot 496 [facility] AI RWAY OBSTRUCT NEC 11/01/2015 Ot 786.2 COUGH 11/01/2015 Ot 496 [facility] AI RWAY OBSTRUCT NEC 11/01/2015 Ot 786.2 COUGH 11/01/2015 Ot 272.4 HYPE RLIPIDEMIA NEC/NOS 11/01/2015 Ot 780.39 OTH ER CONVULSIONS 11/01/2015 Ot 780.39 OTH ER CONVULSIONS 11/01/2015 Ot 272.4 HYPE RLIPIDEMIA NEC/NOS 11/01/2015 Ot 496 [facility] AI RWAY OBSTRUCT NEC 11/01/2015 Ot [...] OUT BEC PT DECISION F 12/14/2015 JOSEDER DOAMNADEEP Ot R56.9 UNSPECIFIED CONVULSIONS 02/19/2016 GELLENDER DOAMANDEEP [...] R56.9 UNSPECIFIED CONVULSIONS 04/11/2016 GELLENDER DO, AMANDEEP Pineda Ot F17.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, UNSPECIFIED, UNCOMP 04/11/2016 [...] PULMONARY DISEASE, U 01/23/2017 GELLENDER DO, AMANDEEP Pnieda Ot G40.909 EPILEPSY, UNSP, NOT INTRACTABLE, WITHOUT [...] Ot 825.25 FX METATARSAL-CLOSED 02/04/2017 GELLENDER DO, AMNADEEP Pineda Ot E928.9 ACCIDENT NOS 02/04/2017 GELLENDER [...] AMANDEEP Pineda Ot Z91.19 PATIENT'S NONCOMPLIANCE W [facility] 04/08/2017 GELLENDER DO, AMANDEEP Pineda [...] GELLENDER DOAMANDEEP Ot Z91.19 PATIENT'S NONCOMPLIANCE W [facility] 04/30/2017 NOREEN CHÁVEZ APRN Ot [...] ENCOUNTER 04/30/2017 NOREEN CHÁVEZ APRN Ot Z79.52 HEAD WAITRESS (CURRENT) USE OF SYSTEMIC STER 04/30/2017 NOREEN [...] EPISTAXIS 04/30/2017 NOREEN CHÁVEZ APRN Ot Z79.52 SENIOR CARE (CURRENT) USE OF SYSTEMIC STER 04/30/2017 NOREEN [...] ENCOUNTER 05/02/2017 NOREEN CHÁVEZ APRN Ot Z79.52 SENIOR CARE (CURRENT) USE OF SYSTEMIC STER 05/02/2017 NOREEN CHÁVEZ APRN Ot Z87.891 PERSONAL HISTORY OF NICOTINE DEPENDENCE 05/02/2017 NOREEN CHÁVEZ APRN Ot Z88 .6 ALLERGY STATUS TO ANALGESIC AGENT STATUS 05/02/2017 NOREEN CHÁVEZ APRN Ot Z99.81 DEPENDENCE ON SUPPLEMENTAL OXYGEN 05/02/2017 NOREEN CHÁVEZ APRN Ot E78.00 PURE HYPERCHOLESTEROLEMIA, UNSPECIFIED 05/02/2017 NOREEN CHVÁEZ APRN Ot G40.909 EPILEPSY, UNSP, NOT INTRACTABLE, WITHOUT 05/02/2017 NOREEN CHÁVEZ APRN Ot I10 ESSENTIAL (PRIMARY) HYPERTENSION 05/02/2017 NOREEN CHÁVEZ APRN Ot J44 .9 CHRONIC OBSTRUCTIVE PULMONARY DISEASE, U 05/02/2017 NOREEN CHÁVEZ APRN Ot R04 .0 EPISTAXIS 05/02/2017 NOREEN CHÁVEZ APRN Ot Z79.52 SENIOR CARE (CURRENT) USE OF SYSTEMIC STER 05/02/2017 NOREEN [...] NODULE 07/09/2017 STEPHEN PRICE Ot Z79.899 OTHER HEAD WAITRESS (CURRENT) DRUG THERAPY 07/09/2017 STEPHEN PRICE Ot [...] NODULE 07/09/2017 STEPHEN PRICE Ot Z79.899 OTHER HEAD WAITRESS (CURRENT) DRUG THERAPY 07/09/2017 STEPHEN PRICE Ot [...] 07/15/2017 STEPHEN PRICE N Ot Z79.899 OTHER SENIOR CARE (CURRENT) DRUG THERAPY 07/15/2017 DEESTEPHEN PATRICIO N [...] 07/18/2017 STEPHEN PRICE N Ot Z79.899 OTHER HEAD WAITRESS (CURRENT) DRUG THERAPY 07/18/2017 STEPHEN PRICE N Ot Z87.891 PERSONAL HISTORY OF NICOTINE DEPENDENCE 07/21/2017 STEPHEN PRICE N Ot J43.9 EMPHYSEMA, UNSPECIFIED 07/21/2017 DEESTEPHEN N Ot R91.1 SOLITARY PULMONARY NODULE 07/21/2017 [...] 07/24/2017 CÉSAR NEGRETE DO Ot Z79.899 OTHER SENIOR CARE (CURRENT) DRUG THERAPY 07/24/2017 CÉSAR NEGRETE DO [...] 07/25/2017 CÉSAR NEGRETE DO Ot Z79.899 OTHER HEAD WAITRESS (CURRENT) DRUG THERAPY 07/25/2017 CÉSAR NEGRETE DO Ot Z87.891 PERSONAL HISTORY OF NICOTINE DEPENDENCE 07/25/2017 CÉSAR NEGRETE DO Ot Z99. 81 DEPENDENCE ON SUPPLEMENTAL OXYGEN 07/28/2017 STEPHEN PRICE Ot E78.5 HYPERLIPIDEMIA, UNSPECIFIED 07/28/2017 STEPHEN PRICE Ot G40.909 EPILEPSY, UNSP, NOT INTRACTABLE, WITHOUT 07/28/2017 STEPHEN PRICE Ot J43.9 EMPHYSEMA, UNSPECIFIED 07/28/2017 STEPHEN PRICE Ot M89.9 DISORDER OF BONE, UNSPECIFIED 07/28/2017 STEPHEN PIRCE Ot R91.1 SOLITARY PULMONARY NODULE 07/28/2017 STEPHEN PRICE Ot Z79.899 OTHER SENIOR CARE (CURRENT) DRUG THERAPY 07/28/2017 STEPHEN PRICE Ot [...] NODULE 07/29/2017 STEPHEN PRICE Ot Z79.899 OTHER SENIOR CARE (CURRENT) DRUG THERAPY 07/29/2017 STEPHEN PRICE Ot Z87.891 PERSONAL HISTORY OF NICOTINE DEPENDENCE 08/01/2017 STEPHEN PRICE Ot 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 08/01/2017 STEPHEN PRICE Ot R91.1 SOLITARY PULMONARY NODULE 08/01/2017 STEPHEN PRICE Ot Z87.891 PERSONAL HISTORY OF NICOTINE DEPENDENCE 08/01/2017 [facility]EP Pineda Ot C34.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 08/01/2017 [facility] , AMANDEEP Pineda Ot E78.00 PURE HYPERCHOLESTEROLEMIA, UNSPECIFIED 08/01/2017 [facility] , AMANDEEP Pineda Ot G14 POSTPOLIO SYNDROME 08/01/2017 [facility] G40.909 EPILEPSY, UNSP, NOT INTRACTABLE, WITHOUT 08/01/2017 [facility] LASSITER Ot G47.30 SLEEP APNEA, UNSPECIFIED 08/01/2017 [facility] AMANDEEP LASSITER Ot I10 ESSENTIAL (PRIMARY) HYPERTENSION 08/01/2017 [facility] AMANDEEP LASSITER Ot J18.9 PNEUMONIA, UNSPECIFIED ORGANISM 08/01/2017 AMANDEEP GENAO DO Ot J44.0 CHRONIC OBSTRUCTIVE PULMON DISEASE W ACU 08/01/2017 [facility] AMANDEEP LASSITER Ot J44.1 CHRONIC OBSTRUCTIVE PULMONARY DISEASE W 08/01/2017 [facility] J96.21 ACUTE AND CHRONIC RESPIRATORY FAILURE [place] 08/01/2017 [facility] AMANDEEP LASSITER Ot R09.02 HYPOXEMIA 08/01/2017 [facility] AMNADEEP LASSITER Ot Z87.891 PERSONAL HISTORY OF NICOTINE [...] DISTRESS 08/05/2017 VANESSA GUTHRIE MD Ot Z79.51 SENIOR CARE (CURRENT) USE OF INHALED STERO 08/05/2017 VANESSA [...] C34.90 MALIGNANT NEOPLASM OF UNSP PART OF [facility] 08/06/2017 AMANDEEP GENAO DO Ot E78.00 PURE HYPERCHOLESTEROLEMIA, UNSPECIFIED 08/06/2017 AMANDEEP GENAO DO Ot G14 POSTPOLIO SYNDROME 08/06/2017 AMANDEEP [...] PERSONAL HISTORY OF NICOTINE DEPENDENCE 08/06/2017 AMANDEEP GNEAO DO Ot Z99.81 DEPENDENCE ON SUPPLEMENTAL OXYGEN 08/07/2017 AMANDEEP GENAO DO Ot C34.90 MALIGNANT NEOPLASM OF UNSP PART OF [facility] 08/07/2017 AMANDEEP GENAO DO Ot E78.00 [...] DEPENDENCE ON SUPPLEMENTAL OXYGEN 08/29/2017 NINA ANAYA DRY ICE MAKER Ot M79.604 PAIN IN RIGHT LEG 08/29/2017 HÉCTOR NINA Bustos DRY ICE MAKER Ot M79.605 PAIN IN LEFT LEG 08/29/2017 IRMA ANAYAINE Juli DRY ICE MAKER Ot M79.89 OTHER SPECIFIED SOFT TISSUE DISORDERS 08/29/2017 IRMA ANAYAINE E DRY ICE MAKER Ot R91.8 OTHER NONSPECIFIC ABNORMAL FINDING OF DAVID 08/29/2017 NINA ANAYA DRY ICE MAKER Ot M79.604 PAIN IN RIGHT LEG 08/29/2017 NINA ANAYA DRY ICE MAKER Ot M79.605 PAIN IN LEFT LEG 08/29/2017 HÉCTORNINA TATUM DRY ICE MAKER Ot M79.89 OTHER SPECIFIED SOFT TISSUE DISORDERS 08/29/2017 NINA ANAYA DRY ICE MAKER Ot R91.8 OTHER NONSPECIFIC ABNORMAL FINDING OF DAVID 09/08/2017 RESENDIZSIVA S TELEVISION CABLE INSTALLER Ot C34.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, LEFT B 09/08/2017 RESENDIZSIVA Rdoriguez S TELEVISION CABLE INSTALLER Ot C79.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 09/10/2017 RESENDIZ HILBRENDA S TELEVISION CABLE INSTALLER Ot C34.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, LEFT B 09/10/2017 RESENDIZSIVA S TELEVISION CABLE INSTALLER Ot C79.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 09/10/2017 NINA ANAYA DRY ICE MAKER Ot M79.604 PAIN IN RIGHT LEG 09/10/2017 NINA ANAYA DRY ICE MAKER Ot M79.605 PAIN IN LEFT LEG 09/10/2017 NINA ANAYA DRY ICE MAKER Ot M79.89 OTHER SPECIFIED SOFT TISSUE DISORDERS 09/10/2017 NINA ANAYA DRY ICE MAKER Ot R91.8 OTHER NONSPECIFIC ABNORMAL FINDING OF DAVID 09/11/2017 STEPHEN PRICE Ot E78.5 HYPERLIPIDEMIA, UNSPECIFIED 09/11/2017 STEPHEN PRICE Ot G40.909 EPILEPSY, UNSP, NOT INTRACTABLE, WITHOUT 09/11/2017 STEPHEN PRICE N Ot J43.9 EMPHYSEMA, UNSPECIFIED 09/11/2017 STEPHEN PRICE N Ot M89.9 DISORDER OF BONE, UNSPECIFIED 09/11/2017 STEPHEN PRICE Ot R91.1 SOLITARY PULMONARY NODULE 09/11/2017 STEPHEN PRICE Ot Z79.899 OTHER HEAD WAITRESS (CURRENT) DRUG THERAPY 09/11/2017 STEPHEN PRICE Ot Z87.891 PERSONAL HISTORY OF NICOTINE DEPENDENCE 09/15/2017 STEPHEN PRICE Ot E78.5 HYPERLIPIDEMIA, UNSPECIFIED 09/15/2017 STEPHEN PRICE Ot G40.909 EPILEPSY, UNSP, NOT INTRACTABLE, WITHOUT 09/15/2017 STEPHEN PRICE Ot J43.9 EMPHYSEMA, UNSPECIFIED 09/15/2017 STEPHEN PRICE Ot M89.9 DISORDER OF BONE, UNSPECIFIED 09/15/2017 STEPHEN PRICE Ot R91.1 SOLITARY PULMONARY NODULE 09/15/2017 STEPHEN PRICE Ot Z79.899 OTHER SENIOR CARE (CURRENT) DRUG THERAPY 09/15/2017 STEPHEN PRICE Ot Z87.891 PERSONAL HISTORY OF NICOTINE DEPENDENCE 09/17/2017 SIVA RESENDIZ TELEVISION CABLE INSTALLER Ot C34.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, LEFT B 09/17/2017 SIVA RESENDIZ TELEVISION CABLE INSTALLER Ot C79.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 [...] GELLENDER DO, AMANDEEP Pineda Ot Z79.899 OTHER SENIOR CARE (CURRENT) DRUG THERAPY 09/24/2017 GELLENDER DO, AMANDEEP [...] G14 POSTPOLIO SYNDROME 09/25/2017 GELLENDER DO, AMANDEEP iPneda Ot G40.909 EPILEPSY, UNSP, NOT INTRACTABLE, WITHOUT [...] GELLENDER DO, AMANDEEP Pineda Ot Z79.899 OTHER SENIOR CARE (CURRENT) DRUG THERAPY 09/25/2017 GELLENDER DO, AMANDEEP [...] GELLENDER DO, AMANDEEP Pineda Ot Z79.899 OTHER SENIOR CARE (CURRENT) DRUG THERAPY 09/26/2017 GELLENDER DO, AMANDEEP [...] GELLENDER DO, AMANDEEP Pineda Ot Z79.899 OTHER HEAD WAITRESS (CURRENT) DRUG THERAPY 09/26/2017 GELLENDER DO, AMANDEEP [...] GELLENDER DO, AMANDEEP Pineda Ot Z79.899 OTHER HEAD WAITRESS (CURRENT) DRUG THERAPY 09/26/2017 GELLENDER DO, AMANDEEP [...] GELLENDER DO, AMANDEEP Pineda Ot Z79.899 OTHER HEAD WAITRESS (CURRENT) DRUG THERAPY 09/26/2017 GELLENDER DO, AMANDEEP [...] GELLENDER DO, AMANDEEP Pineda Ot Z79.899 OTHER SENIOR CARE (CURRENT) DRUG THERAPY 09/26/2017 GELLENDER DO, AMANDEEP [...] GELLENDER DO, AMANDEEP Pineda Ot Z79.899 OTHER SENIOR CARE (CURRENT) DRUG THERAPY 09/27/2017 GELLENDER DO, AMANDEEP [...] GELLENDER DO, AMANDEEP Pineda Ot Z79.899 OTHER SENIOR CARE (CURRENT) DRUG THERAPY 09/28/2017 GELLENDER DO, AMANDEEP [...] GELLENDER DO, AMANDEEP Pineda Ot Z79.899 OTHER HEAD WAITRESS (CURRENT) DRUG THERAPY 09/28/2017 GELLENDER DO, AMANDEEP [...] 10/01/2017 DEE, BOBAN N Ot Z79.899 OTHER SENIOR CARE (CURRENT) DRUG THERAPY 10/01/2017 DEE, BOBAN N [...] 10/02/2017 DEE, BOBAN N Ot Z79.899 OTHER HEAD WAITRESS (CURRENT) DRUG THERAPY 10/02/2017 DEE, BOBAN N [...] 10/07/2017 DEE, SABASAN N Ot Z79.899 OTHER SENIOR CARE (CURRENT) DRUG THERAPY 10/07/2017 DEE STEPHEN N [...] NODULE 10/10/2017 DEESTEPHEN N Ot Z79.899 OTHER HEAD WAITRESS (CURRENT) DRUG THERAPY 10/10/2017 DEESTEPHEN N Ot [...] CHEMOTHERAP 10/13/2017 DEESABASAN N Ot Z79.899 OTHER HEAD WAITRESS (CURRENT) DRUG THERAPY 10/13/2017 DEESABASAN N Ot [...] SCOT LASSITER JAMIR Ot Z79.89 9 OTHER SENIOR CARE (CURRENT) DRUG THERAPY 11/17/2017 SCOT LASSITER JAMIR [...] HYPERTENSION 12/12/2017 KURT MOHR MD Ot Z79.52 SENIOR CARE (CURRENT) USE OF SYSTEMIC STER 12/12/2017 KURT MOHR MD Ot Z79.899 OTHER HEAD WAITRESS (CURRENT) DRUG THERAPY 12/12/2017 KURT MOHR MD Ot Z87.891 PERSONAL HISTORY OF NICOTINE DEPENDENCE 12/16/2017 KURT MOHR MD Ot C34.90 MALIGNANT NEOPLASM OF UNSP [facility] 12/16/2017 KURT MOHR MD Ot H25.12 AGE-RELATED NUCLEAR CATARACT, LEFT EYE 12/16/2017 KURT MOHR MD Ot I10 ESSENTIAL (PRIMARY) HYPERTENSION 12/16/2017 KURT MOHR MD Ot Z79.52 SENIOR CARE (CURRENT) USE OF SYSTEMIC STER 12/16/2017 KURT MOHR MD Ot Z79.899 OTHER HEAD WAITRESS (CURRENT) DRUG THERAPY 12/16/2017 ONUR RIOS, KURT [...] 12/22/2017 STEPHEN PRICE N Ot Z79.899 OTHER SENIOR CARE (CURRENT) DRUG THERAPY 12/22/2017 STEPHEN PRICE N [...] 12/24/2017 KURT MOHR MD Ot Z79.899 OTHER SENIOR CARE (CURRENT) DRUG THERAPY 12/25/2017 KURT MOHR MD [...] ONUR RIOS, KURT Newton Ot Z79.899 OTHER HEAD WAITRESS (CURRENT) DRUG THERAPY 12/25/2017 KURT MOHR MD [...] ONUR RIOS, KURT [place] Ot Z79.899 OTHER HEAD WAITRESS (CURRENT) DRUG THERAPY 12/30/2017 KURT MOHR MD [...] ONUR RIOS, KURT L Ot Z79.899 OTHER HEAD WAITRESS (CURRENT) DRUG THERAPY 12/31/2017 DEESTEPHEN PATRICIO N [...] Z51.11 ENCOUNTER FOR ANTINEOPLASTIC CHEMOTHERAP 12/31/2017 DEESTEPHEN PARTICIO N Ot Z79.899 OTHER HEAD WAITRESS (CURRENT) DRUG THERAPY 12/31/2017 DEE BOBAN N [...] 01/08/2018 DEE, BOBAN N Ot Z79.899 OTHER SENIOR CARE (CURRENT) DRUG THERAPY 01/08/2018 DEE BOBAN N Ot Z87.891 PERSONAL HISTORY OF NICOTINE DEPENDENCE 01/09/2018 SIVA RESENDIZ TELEVISION CABLE INSTALLER Ot C34.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, LEFT B 01/22/2018 SIVA RESENDIZ TELEVISION CABLE INSTALLER Ot C34.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, [...] OSTEOARTHRITIS, UNSPECIFIED SITE 01/28/2018 GELLENDER DO, AMANDEEP Pindea Ot R11.2 NAUSEA WITH VOMITING, UNSPECIFIED 01/28/2018 [...] Ot M19.91 PRIMARY OSTEOARTHRITIS, UNSPECIFIED SITE 01/28/2018 HCADWICK LASSITERAMANDEEP Ot R11.2 NAUSEA WITH VOMITING, UNSPECIFIED [...] UNSPECIFIED 01/29/2018 STEPHEN PRICE Ot Z79.899 OTHER HEAD WAITRESS (CURRENT) DRUG THERAPY 01/29/2018 STEPHEN PRICE Ot [...] UNSPECIFIED 02/17/2018 STEPHEN PRICE Ot Z79.899 OTHER SENIOR CARE (CURRENT) DRUG THERAPY 02/17/2018 STEPHEN PRICE Ot [...] OF SECOND C 03/12/2018 CHADWICK LASSITER, AMANDEEP Pnieda Ot W18.09XA STRIKING AGAINST OTH OBJECT W [...] GELLENDER DO, AMANDEEP Pineda Ot Z79.899 OTHER HEAD WAITRESS (CURRENT) DRUG THERAPY 03/18/2018 GELLENDER DO, AMANDEEP [...] 03/19/2018 DEESTEPHEN PATRICIO Flavio Ot Z79.899 OTHER SENIOR CARE (CURRENT) DRUG THERAPY 03/19/2018 DEESTEPHEN PATRICIO Flavio [...] GELLENDER DO, AMANDEEP Pineda Ot Z79.899 OTHER HEAD WAITRESS (CURRENT) DRUG THERAPY 03/26/2018 GELLENDER DO, AMANDEEP [...] GELLENDER DO, AMANDEEP Pineda Ot Z79.899 OTHER HEAD WAITRESS (CURRENT) DRUG THERAPY 03/26/2018 GELLENDER DO, AMANDEEP [...] STEPHEN PRICE Ot J43.9 EMPHYSEMA, UNSPECIFIED 03/31/2018 STEPEHN PRICE Ot Z51.11 ENCOUNTER FOR ANTINEOPLASTIC CHEMOTHERAP 03/31/2018 STEPHEN PRICE Ot Z79.899 OTHER SENIOR CARE (CURRENT) DRUG THERAPY 03/31/2018 STEPHEN PRICE Ot Z87.891 PERSONAL HISTORY OF NICOTINE DEPENDENCE 04/01/2018 DEESTEPHEN N Ot C34.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, LEFT B 04/01/2018 DEE BOBAN N Ot C79.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 04/01/2018 DEE, BOBAN N Ot E78.5 HYPERLIPIDEMIA, UNSPECIFIED 04/01/2018 DEE BOBAN N Ot G40.909 EPILEPSY, UNSP, NOT INTRACTABLE, WITHOUT 04/01/2018 DEE, BOBAN N Ot J43.9 EMPHYSEMA, UNSPECIFIED 04/01/2018 DEE, BOBAN N Ot Z51.11 ENCOUNTER FOR ANTINEOPLASTIC CHEMOTHERAP 04/01/2018 DEE, BOBAN N Ot Z79.899 OTHER SENIOR CARE (CURRENT) DRUG THERAPY 04/01/2018 DEE BOBAN N [...] 04/06/2018 DEE BOBAN N Ot Z79.899 OTHER SENIOR CARE (CURRENT) DRUG THERAPY 04/06/2018 DEE BOBAN N [...] 04/06/2018 DEE, BOBAN N Ot Z79.899 OTHER HEAD WAITRESS (CURRENT) DRUG THERAPY 04/06/2018 STEPHEN PRICE Ot [...] UNSPECIFIED 04/06/2018 STEPHEN PRICE Ot Z79.899 OTHER SENIOR CARE (CURRENT) DRUG THERAPY 04/06/2018 STEPHEN PRICE Ot [...] DO, AMANDEEP Pineda Ot J98.11 ATELECTASIS 04/21/2018 [facility], AMANDEEP Pineda Ot M19.91 PRIMARY OSTEOARTHRITIS, UNSPECIFIED SITE 04/21/2018 [facility], AMANDEEP Pineda Ot N17.9 ACUTE KIDNEY FAILURE, UNSPECIFIED 04/21/2018 [facility] AM[facility]EP Pineda Ot R06.03 ACUTE RESPIRATORY DISTRESS 04/21/2018 [facility], AMANDEEP Pineda Ot R09.02 HYPOXEMIA 04/21/2018 [facility], AMANDEEP Pineda Ot R64 CACHEXIA 04/21/2018 [facility], AMANDEEP Pineda Ot S12.9XXD FRACTURE OF NECK, UNSPECIFIED, SUBSEQUEN 04/21/2018 [facility], AMANDEEP Pineda Ot Z87.891 PERSONAL HISTORY OF NICOTINE DEPENDENCE 04/21/2018 [facility], AMANDEEP Pineda Ot Z99.81 DEPENDENCE ON SUPPLEMENTAL OXYGEN 04/24/2018 [facility], AMANDEEP Pineda Ot 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 04/24/2018 [facility], AMANDEEP Pineda Ot C34.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 04/24/2018 [facility], AMANDEEP Pineda Ot C79.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 04/24/2018 [facility], AMANDEEP Pineda Ot E78.00 PURE HYPERCHOLESTEROLEMIA, UNSPECIFIED 04/24/2018 [facility], AMANDEEP Pineda Ot E86.0 DEHYDRATION 04/24/2018 [facility], AMANDEEP Pineda Ot E87.1 HYPO-OSMOLALITY AND HYPONATREMIA 04/24/2018 [facility], AMANDEEP Pineda Ot E87.8 OTH DISORDERS OF ELECTROLYTE AND FLUID B 04/24/2018 [facility], AMANDEEP Pineda Ot G14 POSTPOLIO SYNDROME 04/24/2018 [facility], AMANDEEP Pineda Ot G40.919 EPILEPSY, UNSP, INTRACTABLE, WITHOUT STA 04/24/2018 [facility] AMANDEEP Pineda Ot G47.30 SLEEP APNEA, UNSPECIFIED 04/24/2018 [facility], AMANDEEP Pineda Ot I10 ESSENTIAL (PRIMARY) HYPERTENSION 04/24/2018 [facility], AMANDEEP Pineda Ot I95.9 HYPOTENSION, UNSPECIFIED 04/24/2018 [facility] AMANDEEP Pineda Ot J18.1 LOBAR PNEUMONIA, UNSPECIFIED ORGANISM 04/24/2018 [facility], AMANDEEP Pineda Ot J30.2 OTHER SEASONAL ALLERGIC RHINITIS 04/24/2018 GELLENDER DO, AMANDEEP Pineda Ot J43.9 EMPHYSEMA, UNSPECIFIED 04/24/2018 GELLENDER DO, AMANDEEP Pineda Ot J98.11 ATELECTASIS 04/24/2018 GELLENDER DO, AMANDEEP Pineda Ot M19.91 PRIMARY OSTEOARTHRITIS, UNSPECIFIED SITE 04/24/2018 GELLENDER DO, AMANDEEP Pineda Ot N17.9 ACUTE KIDNEY FAILURE, UNSPECIFIED 04/24/2018 GELLENDER DO, AMANDEEP iPneda Ot R06.03 ACUTE RESPIRATORY DISTRESS 04/24/2018 GELLENDER [...] UNSPECIFIED 04/27/2018 STEPHEN PRICE Ot Z79.899 OTHER SENIOR CARE (CURRENT) DRUG THERAPY 04/27/2018 STEPHEN PRICE Ot Z87.891 PERSONAL HISTORY OF NICOTINE DEPENDENCE 05/06/2018 SIV[facility] RESENDIZ TELEVISION CABLE INSTALLER Ot C34.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, LEFT B 05/06/2018 SIVA RESENDIZ TELEVISION CABLE INSTALLER Ot C79.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 05/07/2018 STEPHEN PRICE Ot C34.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, LEFT B 05/07/2018 STEPHEN PRICE Ot C79.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 05/07/2018 STEPHEN PRICE Ot E78.5 HYPERLIPIDEMIA, UNSPECIFIED 05/07/2018 STEPHEN PRICE Ot G40.909 EPILEPSY, UNSP, NOT INTRACTABLE, WITHOUT 05/07/2018 DEESTEPHEN PATRICIO Flavio Ot J43.9 EMPHYSEMA, UNSPECIFIED 05/07/2018 STEPHEN PRICE Flavio Ot Z79.899 OTHER HEAD WAITRESS (CURRENT) DRUG THERAPY 05/07/2018 STEPHEN PRICE Flavio [...] 05/11/2018 DEE STEPHEN Flavio Ot Z79.899 OTHER SENIOR CARE (CURRENT) DRUG THERAPY 05/11/2018 STEPHEN PRICE Flavio [...] CHEMOTHERAP 05/25/2018 STEPHEN PRICE Ot Z79.899 OTHER HEAD WAITRESS (CURRENT) DRUG THERAPY 05/25/2018 STEPHEN PRICE Ot Z87.891 PERSONAL HISTORY OF NICOTINE DEPENDENCE 05/25/2018 SIVA RESENDIZ TELEVISION CABLE INSTALLER Ot C34.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, LEFT B 05/25/2018 SIVA RESENDIZ TELEVISION CABLE INSTALLER Ot C79.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 [...] NOT INTRACTABLE, WITHOUT 06/13/2018 GELLENDER DO, AMANDEEP Pineda Ot G47.30 SLEEP APNEA, UNSPECIFIED 06/13/2018 GELLENDER DO, AMANDEEP Pineda Ot G62.9 POLYNEUROPATHY, UNSPECIFIED 06/13/2018 GELLENDER DO, AMANDEEP Pineda Ot I10 ESSENTIAL (PRIMARY) HYPERTENSION 06/13/2018 GELLENDER DO, AMANDEEP Pineda Ot I25.10 ATHSCL HEART DISEASE OF [place] CORONARY 06/13/2018 GELLENDER DO, AMANDEEP Pineda Ot [...] Z87.891 PERSONAL HISTORY OF NICOTINE DEPENDENCE 06/13/2018 [facility] AM[facility]DEEP Pineda Ot Z99.81 DEPENDENCE ON SUPPLEMENTAL OXYGEN 06/22/2018 [facility] AM[facility] Pineda Ot R56.9 UNSPECIFIED CONVULSIONS 06/22/2018 [facility], AMANDEEP Pineda Ot F17.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, UNSPECIFIED, UNCOMP 06/22/2018 GELLENDER DO, AMANDEEP Pineda Ot J44.9 CHRONIC OBSTRUCTIVE PULMONARY DISEASE, U 06/22/2018 GELLENDER DO, AMANDEEP Pineda Ot R63.4 ABNORMAL WEIGHT LOSS 06/22/2018 [facility] Pineda Ot J44.9 CHRONIC OBSTRUCTIVE PULMONARY DISEASE, U 06/22/2018 GELLENDER DO, AMANDEEP Pineda Ot R63.4 ABNORMAL WEIGHT LOSS 06/22/2018 GELLENDER DO, AMANDEEP Pineda Ot R63.4 ABNORMAL WEIGHT LOSS 06/22/2018 [facility] AM[facility]EP Pineda Ot G40.909 EPILEPSY, [...] ABNORMAL FINDING OF DAVID 06/22/2018 SIVA RESENDIZ TELEVISION CABLE INSTALLER Ot C34.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, LEFT B 06/22/2018 SIVA RESENDIZ TELEVISION CABLE INSTALLER Ot C79.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 06/22/2018 AMANDEEP GENAO DO Ot B35.1 TINEA UNGUIUM 06/22/2018 SIVA RESENDIZ TELEVISION CABLE INSTALLER Ot C34.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, LEFT B 06/22/2018 SIVA RESENDIZ TELEVISION CABLE INSTALLER Ot C79.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 06/22/2018 SIVA RESENDIZ TELEVISION CABLE INSTALLER Ot C34.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, LEFT B 06/22/2018 SIVA RESENDIZP Ot C34.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, LEFT B 06/22/2018 SIVA RESENDIZ TELEVISION CABLE INSTALLER Ot C79.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 06/22/2018 AMANDEEP GENAO DO Ot M43.12 SPONDYLOLISTHESIS, CERVICAL REGION 06/22/2018 [facility] Ot M47.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 06/22/2018 [facility] AMAN[facility]EP LASSITER Ot S19.9XXA UNSPECIFIED [...] CHEMOTHERAP 06/22/2018 STEPHEN PRICE Ot Z79.899 OTHER HEAD WAITRESS (CURRENT) DRUG THERAPY 06/22/2018 STEPHEN PRICE Ot Z87.891 PERSONAL HISTORY OF NICOTINE DEPENDENCE 06/22/2018 SIVA RESENDIZ TELEVISION CABLE INSTALLER Ot C34.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, LEFT B 06/22/2018 RESENIDZSIVA RodriguezP Ot C79.51 SECONDARY MALIGNANT NEOPLASM OF [...] Pineda Ot G47.30 SLEEP APNEA, UNSPECIFIED 06/25/2018 [facility]EP Pineda Ot G62.9 POLYNEUROPATHY, UNSPECIFIED 06/25/2018 [facility], AMANDEEP Pineda Ot H53.9 UNSPECIFIED VISUAL DISTURBANCE 06/25/2018 [facility], AMANDEEP Pineda Ot I10 ESSENTIAL (PRIMARY) HYPERTENSION 06/25/2018 [facility] AM[facility]EP Pineda Ot I38 ENDOCARDITIS, VALVE UNSPECIFIED 06/25/2018 GELLENDER DO, AMANDEEP Pineda Ot J18.1 LOBAR PNEUMONIA, UNSPECIFIED ORGANISM 06/25/2018 [facility]EP Pineda Ot J44.9 CHRONIC OBSTRUCTIVE PULMONARY DISEASE, U 06/25/2018 [facility]EP Pineda Ot M19.91 PRIMARY OSTEOARTHRITIS, UNSPECIFIED SITE 06/25/2018 [facility], AMANDEEP Pineda Ot R01.1 CARDIAC MURMUR, UNSPECIFIED 06/25/2018 [facility], AMANDEEP Pineda Ot R41.0 DISORIENTATION, UNSPECIFIED 06/25/2018 GELDER DO, AMANDEEP Pineda Ot R42 DIZZINESS AND GIDDINESS 06/25/2018 [facility], AMANDEEP Pineda Ot R47.81 SLURRED SPEECH 06/25/2018 [facility], AMANDEEP Pineda Ot R79.89 OTHER SPECIFIED ABNORMAL FINDINGS OF BLO 06/25/2018 [facility], AMANDEEP Pineda Ot T42.0X5A ADVERSE EFFECT OF HYDANTOIN DERIVATIVES, 06/25/2018 [facility] AM[facility]EP Ot T42.1X5A ADVERSE EFFECT OF IMINOSTILBENES, INITIA 06/25/2018 [facility] , AMANDEEP Pineda Ot Z87.891 PERSONAL HISTORY OF NICOTINE DEPENDENCE 06/25/2018 [facility] , AMANDEEP Pineda Ot Z92.21 PERSONAL HISTORY OF ANTINEOPLASTIC CHEMO 06/25/2018 [facility], AMANDEEP Pineda Ot Z99.81 DEPENDENCE ON SUPPLEMENTAL OXYGEN 06/26/2018 [facility], AMANDEEP Pineda Ot C34.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 06/26/2018 [facility], AMANDEEP Pineda Ot C79.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 06/26/2018 [facility], AMANDEEP Pineda Ot D64.9 ANEMIA, [...] OTHER NONSPECIFIC ABNORMAL FINDING OF DAVID 07/03/2018 RANI PACHECO DO Ot Z95.828 PRESENCE OF OTHER VASCULAR IMPLANTS AND 07/10/2018 SIVA RESENDIZ Ot J98.11 ATELECTASIS 07/10/2018 SIVA RESENDIZ Ot M43.12 SPONDYLOLISTHESIS, CERVICAL REGION 07/10/2018 SIVA RESENDIZ Ot M47.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 07/10/2018 SIVA RESENDIZ TELEVISION CABLE INSTALLER Ot S12.190A OTH DISP FX OF SECOND CERVICAL VERTEBRA, 07/10/2018 SIVA RESENDIZ TELEVISION CABLE INSTALLER Ot W19.XXXA UNSPECIFIED FALL, INITIAL ENCOUNTER 07/10/2018 SIVA RESENDIZ TELEVISION CABLE INSTALLER Ot Z95.828 PRESENCE OF OTHER VASCULAR IMPLANTS [...] ACUTE AND CHRONIC RESPIRATORY FAILURE [place] 07/14/2018 RAIN PACHECO DO Ot R22. 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, LEFT B 07/14/2018 STEPHEN PRICE Ot C79.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 07/14/2018 STEPHEN PRICE Ot E78.5 HYPERLIPIDEMIA, UNSPECIFIED 07/14/2018 STEPHEN PRICE Ot G40.909 EPILEPSY, UNSP, NOT INTRACTABLE, WITHOUT 07/14/2018 STEPHEN PRICE Ot J43.9 EMPHYSEMA, UNSPECIFIED 07/14/2018 STEPHEN PRICE Ot Z51.11 ENCOUNTER FOR ANTINEOPLASTIC CHEMOTHERAP 07/14/2018 STEPHEN PRICE Ot Z79.899 OTHER HEAD WAITRESS (CURRENT) DRUG THERAPY 07/14/2018 STEPHEN PRICE Ot [...] SPECIFIED SPECIAL EX 07/21/2018 GELLENDER DO, AMANDEEP Pineda Ot R56.9 UNSPECIFIED CONVULSIONS 07/21/2018 GELLENDER DO, [...] LOCALIZED SWELLING, MASS AND LUMP, HEAD 07/21/2018 RANI PACHECO DO Ot Z99. 81 DEPENDENCE [...] C79.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 07/21/2018 [facility] AMANDEEP LASSITER Ot B35.1 TINEA UNGUIUM [...] C79.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 07/21/2018 [facility] AMANDEEP LASSITER Ot M43.12 SPONDYLOLISTHESIS, CERVICAL [...] CHEMOTHERAP 07/21/2018 STEPHEN PRICE Ot Z79.899 OTHER HEAD WAITRESS (CURRENT) DRUG THERAPY 07/21/2018 STEPHEN PRICE Ot [...] Ot D64.9 ANEMIA, UNSPECIFIED 07/24/2018 GELLENDER DO, AMADNEEP Pineda Ot E78.00 PURE HYPERCHOLESTEROLEMIA, UNSPECIFIED 07/24/2018 GELLENDER DO, AMANDEEP Pineda Ot G40.909 EPILEPSY, UNSP, NOT INTRACTABLE, WITHOUT 07/24/2018 GELLENDER DO, AMANDEEP Pineda Ot G47.30 SLEEP APNEA, UNSPECIFIED 07/24/2018 GELLENDER DO, AMANDEEP Pineda Ot G62.9 POLYNEUROPATHY, UNSPECIFIED 07/24/2018 GELLENDER DO, AMANDEEP Pineda Ot G81.94 HEMIPLEGIA, UNSPECIFIED AFFECTING LEFT N 07/24/2018 [facility], AMANDEEP Pineda Ot I10 ESSENTIAL (PRIMARY) HYPERTENSION 07/24/2018 GELLENDER DO, AMANDEEP Pineda Ot J18.1 LOBAR PNEUMONIA, UNSPECIFIED ORGANISM 07/24/2018 GELLENDER DO, AMANDEEP Pineda Ot J30.2 OTHER SEASONAL ALLERGIC RHINITIS 07/24/2018 [facility], AMANDEEP Pineda Ot J44.0 CHRONIC OBSTRUCTIVE [...] 07/24/2018 [facility] LASS[facility], AMANDEEP Pineda Ot Z79.52 HEAD WAITRESS (CURRENT) USE OF SYSTEMIC STER 07/24/2018 [facility] LASSITER, AMANDEEP Pineda Ot Z79.899 OTHER SENIOR CARE (CURRENT) DRUG THERAPY 07/24/2018 [facility] LASS[facility], AMANDEEP Pineda Ot Z87.891 PERSONAL HISTORY OF NICOTINE DEPENDENCE 07/24/2018 [facility], AMANDEEP Pineda Ot Z91.19 PATIENT'S NONCOMPLIANCE W [facility] 07/24/2018 [facility] LASS[facility], AMANDEEP Miriam [...] 07/26/2018 STEPHEN PRICE N Ot Z79.899 OTHER SENIOR CARE (CURRENT) DRUG THERAPY 07/26/2018 STEPHEN PRICE N [...] 07/27/2018 STEPHEN PRICE N Ot Z79.899 OTHER SENIOR CARE (CURRENT) DRUG THERAPY 07/27/2018 STEPHEN PRICE Ot [...] 07/27/2018 STEPHEN PRICE Flavio Ot Z79.899 OTHER SENIOR CARE (CURRENT) DRUG THERAPY 07/27/2018 STEPHEN PRICE N [...] OF DAVID 08/10/2018 RANI PACHECO DO Ot Z72. 0 TOBACCO USE 08/10/2018 STEPHEN PRICE Ot J43.9 EMPHYSEMA, UNSPECIFIED 08/10/2018 DEESTEPHEN PATRICIO Flavio Ot R91.1 SOLITARY PULMONARY NODULE 08/10/2018 SIVA RESENDIZ TELEVISION CABLE INSTALLER Ot C34.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, LEFT B 08/10/2018 SIVA RESENDIZ TELEVISION CABLE INSTALLER Ot C79.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 08/10/2018 SIVA RESENDIZ TELEVISION CABLE INSTALLER Ot C34.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, LEFT B 08/10/2018 SIVA RESENDIZ TELEVISION CABLE INSTALLER Ot C79.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 [...] 9 PNEUMONIA, UNSPECIFIED ORGANISM 08/10/2018 RANI PACHECO DO, Ot J44. 1 CHRONIC [...] Pineda Ot 729.81 SWELLING OF LIMB 08/10/2018 [facility], AMANDEEP Pineda Ot 780.79 OTH MALAISE FATIGUE 08/10/2018 GABRIELLE RIOS, YELITZA Marie Ot 780.3 9 OTHER CONVULSIONS 08/10/2018 [facility] AMANDEEP Pineda Ot 825.25 FX METATARSAL-CLOSED 08/10/2018 [facility] , AMANDEEP Pineda Ot E928.9 ACCIDENT NOS 08/10/2018 [facility] , AMANDEEP Pineda Ot 780.39 OTHER CONVULSIONS 08/10/2018 GELLENDER DO, AMANDEEP Pineda Ot 721.0 CERVICAL SPONDYLOSIS 08/10/2018 [facility] AMANDEEP Pineda Ot 496 CHR AIRWAY OBSTRUCT NEC 08/10/2018 [facility], AMANDEEP Pineda Ot 780.39 OTHER CONVULSIONS 08/10/2018 [facility] , AMANDEEP Pineda Ot E78.5 HYPERLIPIDEMIA, UNSPECIFIED 08/10/2018 [facility] , AMANDEEP Pineda Ot J44.9 CHRONIC OBSTRUCTIVE PULMONARY DISEASE, U 08/10/2018 GELLENDER , AMANDEEP Pineda Ot M79.672 PAIN IN LEFT FOOT 08/10/2018 [facility], AMANDEEP Pineda Ot R56.9 UNSPECIFIED CONVULSIONS 08/10/2018 [facility] , AMANDEEP Pineda Ot Z87.81 PERSONAL HISTORY OF (HEALED) TRAUMATIC F 08/10/2018 [facility] , AMANDEEP Pineda Ot E78.5 HYPERLIPIDEMIA, UNSPECIFIED 08/10/2018 GELLENDER DO, AMANDEEP Pineda Ot R56.9 UNSPECIFIED CONVULSIONS 08/10/2018 [facility], AMANDEEP Pineda Ot J44.9 CHRONIC OBSTRUCTIVE PULMONARY DISEASE, U 08/10/2018 GELLENDER DO, AMANDEEP Pineda Ot R63.4 ABNORMAL WEIGHT LOSS 08/10/2018 GELLENDER DO, AMANDEEP Pineda Ot R63.4 ABNORMAL WEIGHT LOSS 08/10/2018 GELLENDER DO, AMANDEEP Pineda Ot G40.909 EPILEPSY, UNSP, NOT INTRACTABLE, WITHOUT 08/10/2018 GELLENDER DO, AMANDEEP Pineda Ot J34.89 OTHER SPECIFIED DISORDERS OF NOSE AND NA 08/10/2018 [facility], AMANDEEP Pineda Ot S99.912A UNSPECIFIED INJURY [...] DISEASE, U 08/12/2018 NESTOR AVILEZ Ot Z79.51 HEAD WAITRESS (CURRENT) USE OF INHALED STERO 08/12/2018 NESTOR [...] DISEASE, U 08/14/2018 NESTOR AVILEZ Ot Z79.51 SENIOR CARE (CURRENT) USE OF INHALED STERO 08/14/2018 NESTOR [...] CHEMOTHERAP 08/19/2018 STEPHEN PRICE Ot Z79.899 OTHER SENIOR CARE (CURRENT) DRUG THERAPY 08/19/2018 STEPHEN PRICE Ot [...] HERNANDEZ MD, Ot Y92.[address] [facility] (PRIVATE 09/04/2018 STEFAN HERNANDEZ MD, Ot Z23 ENCOUNTER FOR IMMUNIZATION 09/04/2018 STEFAN HERNANDEZ MD, Ot Z79.51 HEAD WAITRESS (CURRENT) USE OF INHALED STERO 09/04/2018 STEFAN [...] Ot Z99.81 DEPENDENCE ON SUPPLEMENTAL OXYGEN 09/07/2018 [facility], AMANDEEP Pineda Ot C79.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 09/07/2018 [facility] Ot E78.00 PURE HYPERCHOLESTEROLEMIA, UNSPECIFIED 09/07/2018 [facility] Ot E87.1 HYPO-OSMOLALITY AND HYPONATREMIA 09/07/2018 [facility] Ot G14 POSTPOLIO SYNDROME 09/07/2018 [facility] Ot G40.909 EPILEPSY, UNSP, NOT INTRACTABLE, WITHOUT 09/07/2018 [facility] DOAM[facility]EP Ot G47.30 SLEEP APNEA, UNSPECIFIED 09/07/2018 [facility] Ot G62.9 POLYNEUROPATHY, UNSPECIFIED 09/07/2018 [facility] Ot I10 ESSENTIAL (PRIMARY) HYPERTENSION 09/07/2018 [facility] Ot J44.1 CHRONIC OBSTRUCTIVE PULMONARY DISEASE W 09/07/2018 [facility] Ot M19.91 PRIMARY OSTEOARTHRITIS, UNSPECIFIED SITE 09/07/2018 [facility] AMANDEEP LASSITER Ot R01.1 CARDIAC MURMUR, UNSPECIFIED 09/07/2018 [facility] Ot R09.02 HYPOXEMIA 09/07/2018 [facility] AMANDEEP LASSITER Ot R26.2 DIFFICULTY IN WALKING, NOT ELSEWHERE CLA 09/07/2018 [facility] SCHMIDT DO Ot R29.6 REPEATED FALLS 09/07/2018 [facility] Ot R41.82 ALTERED MENTAL STATUS, UNSPECIFIED 09/07/2018 [facility], AMANDEEP Pineda Ot R42 DIZZINESS AND GIDDINESS 09/07/2018 [facility], AMANDEEP Pineda Ot R47.81 SLURRED SPEECH 09/07/2018 [facility], AMANDEEP Pineda Ot R53.1 WEAKNESS 09/07/2018 [facility], AMANDEEP Pineda Ot S09.90XA UNSPECIFIED INJURY OF HEAD, INITIAL ENCO 09/07/2018 [facility] AMANDEEP Pineda Ot S90.812A ABRASION, LEFT FOOT, INITIAL ENCOUNTER 09/07/2018 [facility], AMANDEEP Pineda Ot W01.190A FALL SAME LEV FROM SLIP/TRIP W STRIKE AG 09/07/2018 [facility] AMANDEEP Pineda Ot Y92.[address] [facility] [address] [facility] ([facility] 09/07/2018 [facility] , AMANDEEP Pineda Ot Z85.118 PERSONAL HISTORY OF MALIGNANT NEOPLASM O 09/07/2018 [facility] Ot Z87.01 PERSONAL HISTORY OF PNEUMONIA (RECURRENT 09/07/2018 [facility], AMANDEEP Miriam Ot Z87.891 PERSONAL HISTORY OF NICOTINE DEPENDENCE 09/07/2018 [facility] Miriam Ot Z92.21 PERSONAL HISTORY OF ANTINEOPLASTIC CHEMO 09/07/2018 [facility], AMANDEEP Miriam Ot Z99.81 DEPENDENCE ON SUPPLEMENTAL OXYGEN 09/08/2018 MARY RIOS, STEFAN Zuniga Ot E78.00 PURE HYPERCHOLESTEROLEMIA, UNSPECIFIED 09/08/2018 MARY RIOS, STEFAN Zuniga Ot G14 POSTPOLIO SYNDROME 09/08/2018 MARY RIOS, TSEFAN Zuniga Ot G40.909 EPILEPSY, UNSP, NOT INTRACTABLE, [...] HERNANDEZ MD, Ot Y92.[address] [facility] ([facility] 09/08/2018 STEFAN HERNANDEZ MD, Ot Z23 ENCOUNTER FOR IMMUNIZATION 09/08/2018 STEFAN HERNANDEZ MD, Ot Z79.51 SENIOR CARE (CURRENT) USE OF INHALED STERO 09/08/2018 STEFAN [...] Ot Z99.81 DEPENDENCE ON SUPPLEMENTAL OXYGEN 09/14/2018 SETPHEN PRICE Ot C34.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, LEFT B 09/14/2018 STEPHEN PRICE Ot C79.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 09/14/2018 STEPHEN PRICE Ot E78.5 HYPERLIPIDEMIA, UNSPECIFIED 09/14/2018 STEPHEN PRICE Ot G40.909 EPILEPSY, UNSP, NOT INTRACTABLE, WITHOUT 09/14/2018 STEPHEN PRICE Ot J43.9 EMPHYSEMA, UNSPECIFIED 09/14/2018 STEPHEN PRICE Ot Z51.11 ENCOUNTER FOR ANTINEOPLASTIC CHEMOTHERAP 09/14/2018 STEPHEN PRICE Ot Z79.899 OTHER HEAD WAITRESS (CURRENT) DRUG THERAPY 09/14/2018 DEESTEPHEN PATRICIO Flavio Ot Z87.891 PERSONAL HISTORY OF NICOTINE DEPENDENCE 09/15/2018 NINA ANAYA DRY ICE MAKER Ot C34.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, LEFT B 09/15/2018 NINA ANAYA DRY ICE MAKER Ot F17.201 NICOTINE DEPENDENCE, UNSPECIFIED, IN REM 09/15/2018 NINA ANAYA DRY ICE MAKER Ot I25.10 ATHSCL HEART DISEASE OF [place] CORONARY 09/15/2018 IRMA ANAYAINE Juli DRY ICE MAKER Ot I70.0 ATHEROSCLEROSIS OF [place] 09/15/2018 NINA ANAYA DRY ICE MAKER Ot J18.9 PNEUMONIA, UNSPECIFIED ORGANISM 09/15/2018 IRMA ANAYAINE E DRY ICE MAKER Ot J43.9 EMPHYSEMA, UNSPECIFIED 09/15/2018 IRMA ANAYAINE E DRY ICE MAKER Ot J96.20 ACUTE AND CHR RESP FAILURE, UNSP W HYPOX 09/15/2018 IRMA ANAYAINE Juli DRY ICE MAKER Ot J98.4 OTHER DISORDERS OF LUNG 09/15/2018 IRMA ANAYAINE Juli DRY ICE MAKER Ot R91.8 OTHER NONSPECIFIC ABNORMAL FINDING OF DAVID 09/20/2018 NINA ANAYA DRY ICE MAKER Ot C34.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, LEFT B 09/20/2018 NINA ANAYA DRY ICE MAKER Ot F17.201 NICOTINE DEPENDENCE, UNSPECIFIED, IN REM 09/20/2018 IRMA ANAYAINE Juli DRY ICE MAKER Ot I25.10 ATHSCL HEART DISEASE OF [place] CORONARY 09/20/2018 NINA ANAYA DRY ICE MAKER Ot I70.0 ATHEROSCLEROSIS OF [place] 09/20/2018 NINA ANAYA DRY ICE MAKER Ot J18.9 PNEUMONIA, UNSPECIFIED ORGANISM 09/20/2018 IRMA ANAYAINE Juli DRY ICE MAKER Ot J43.9 EMPHYSEMA, UNSPECIFIED 09/20/2018 IRMA ANAYAINE E DRY ICE MAKER Ot J96.20 ACUTE AND CHR RESP FAILURE, UNSP W HYPOX 09/20/2018 IRMA ANAYAINE Juli DRY ICE MAKER Ot J98.4 OTHER DISORDERS OF LUNG 09/20/2018 IRMA ANAYAINE Juli DRY ICE MAKER Ot R91.8 OTHER NONSPECIFIC ABNORMAL FINDING OF DAVID 09/24/2018 DEE STEPHEN Muniz Ot C34.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, LEFT B 09/24/2018 STEPHEN PRICE Ot C79.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 09/24/2018 STEPHEN PRICE Flavio Ot E78.5 HYPERLIPIDEMIA, UNSPECIFIED 09/24/2018 STEPHEN PRICE Flavio Ot G40.909 EPILEPSY, UNSP, NOT INTRACTABLE, WITHOUT 09/24/2018 STEPHEN PRICE Flavio Ot J43.9 EMPHYSEMA, UNSPECIFIED 09/24/2018 STEPHEN PRICE Flavio Ot Z51.11 ENCOUNTER FOR ANTINEOPLASTIC CHEMOTHERAP 09/24/2018 STEPHEN PRICE Flavio Ot Z79.899 OTHER HEAD WAITRESS (CURRENT) DRUG THERAPY 09/24/2018 STEPHEN PRICE Flavio [...] BREATH 10/05/2018 STEFAN HERNANDEZ MD, Ot Z79.51 SENIOR CARE (CURRENT) USE OF INHALED STERO 10/05/2018 STEFAN [...] 10/05/2018 DEE, BOBAN N Ot Z79.899 OTHER SENIOR CARE (CURRENT) DRUG THERAPY 10/05/2018 DEE, BOBAN N [...] 10/08/2018 DEE, BOBAN N Ot Z79.899 OTHER SENIOR CARE (CURRENT) DRUG THERAPY 10/08/2018 DEE, BOBAN N [...] BREATH 10/10/2018 STEFAN HERNANDEZ MD, Ot Z79.51 SENIOR CARE (CURRENT) USE OF INHALED STERO 10/10/2018 STEFAN [...] BREATH 10/12/2018 STEFAN HERNANDEZ MD Ot Z79.51 HEAD WAITRESS (CURRENT) USE OF INHALED STERO 10/12/2018 STEFAN [...] APRN Ot I25.10 ATHSCL HEART DISEASE OF [place] CORONARY 10/12/2018 NINA ANAYA APRN Ot I70.0 [...] ABNORMAL FINDING OF DAVID 10/27/2018 NINA ANAYA DRY ICE MAKER Ot C34.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, LEFT B 10/27/2018 NINA ANAYA DRY ICE MAKER Ot F17.201 NICOTINE DEPENDENCE, UNSPECIFIED, IN REM 10/27/2018 NINA ANAYA DRY ICE MAKER Ot I25.10 ATHSCL HEART DISEASE OF [place] CORONARY 10/27/2018 NINA ANAYA DRY ICE MAKER Ot I70.0 ATHEROSCLEROSIS OF [place] 10/27/2018 NINA ANAYA DRY ICE MAKER Ot J18.9 PNEUMONIA, UNSPECIFIED ORGANISM 10/27/2018 NINA ANAYA DRY ICE MAKER Ot J43.9 EMPHYSEMA, UNSPECIFIED 10/27/2018 NINA ANAYA DRY ICE MAKER Ot J96.20 ACUTE AND CHR RESP FAILURE, UNSP W HYPOX 10/27/2018 NINA ANAYA DRY ICE MAKER Ot J98.4 OTHER DISORDERS OF LUNG 10/27/2018 NINA ANAYA DRY ICE MAKER Ot R91.8 OTHER NONSPECIFIC ABNORMAL FINDING OF [...] CHEMOTHERAP 11/03/2018 STEPHEN PRICE Ot Z79.899 OTHER SENIOR CARE (CURRENT) DRUG THERAPY 11/03/2018 STEPHEN PRICE Ot [...] OF UNSP PART OF RIGHT 11/10/2018 KURT MORH MD Ot E78.00 PURE HYPERCHOLESTEROLEMIA, UNSPECIFIED 11/10/2018 KURT MOHR MD Ot E78 .5 HYPERLIPIDEMIA, UNSPECIFIED 11/10/2018 KURT MOHR MD Ot G40.909 EPILEPSY, UNSP, NOT INTRACTABLE, WITHOUT 11/10/2018 KURT MOHR MD Ot H26 .9 UNSPECIFIED CATARACT 11/10/2018 KURT MOHR MD Ot I10 ESSENTIAL (PRIMARY) HYPERTENSION 11/10/2018 KURT MOHR MD Ot J45.909 UNSPECIFIED ASTHMA, UNCOMPLICATED 11/10/2018 KURT MOHR MD Ot Z79.899 OTHER HEAD WAITRESS (CURRENT) DRUG THERAPY 11/17/2018 STEPHEN PRICE Ot [...] CHEMOTHERAP 11/17/2018 STEPHEN PRICE Ot Z79.899 OTHER SENIOR CARE (CURRENT) DRUG THERAPY 11/17/2018 STEPHEN PRICE Ot [...] OF OTHER VASCULAR IMPLANTS AND 11/17/2018 SIVA RESEDNIZP Ot J98.11 ATELECTASIS 11/17/2018 RESENDIZSIVA Rodriguez Jennifer TELEVISION CABLE INSTALLER Ot M43.12 SPONDYLOLISTHESIS, CERVICAL REGION 11/17/2018 SIVA RESENDIZ TELEVISION CABLE INSTALLER Ot M47.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 11/17/2018 SIVA RESENDIZ TELEVISION CABLE INSTALLER Ot S12.190A OTH DISP FX OF SECOND CERVICAL VERTEBRA, 11/17/2018 SIVA RESENDIZ TELEVISION CABLE INSTALLER Ot W19.XXXA UNSPECIFIED FALL, INITIAL ENCOUNTER 11/17/2018 RESENDIZSIVA Rodriguez Jennifer TELEVISION CABLE INSTALLER Ot Z95.828 PRESENCE OF OTHER VASCULAR IMPLANTS AND 11/17/2018 NINA ANAYA APRN Ot C34.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, LEFT B 11/17/2018 NINA ANAYA APRN Ot F17.201 NICOTINE DEPENDENCE, UNSPECIFIED, IN REM 11/17/2018 NINA ANAYA APRN Ot I25.10 ATHSCL HEART DISEASE OF [place] CORONARY 11/17/2018 NINA ANAYA APRN Ot I70.0 [...] 11/17/2018 DEE, BOBAN N Ot Z79.899 OTHER HEAD WAITRESS (CURRENT) DRUG THERAPY 11/17/2018 DEE, BOBAN N [...] 11/18/2018 DEE, BOBAN N Ot Z79.899 OTHER SENIOR CARE (CURRENT) DRUG THERAPY 11/18/2018 DEE, BOBAN N [...] 11/23/2018 STEPHEN PRICE Flavio Ot Z79.899 OTHER SENIOR CARE (CURRENT) DRUG THERAPY 11/23/2018 STEPHEN PRICE Flavio Ot Z87.891 PERSONAL HISTORY OF NICOTINE DEPENDENCE 11/24/2018 STEPHEN PRICE Flavio Ot C34.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, LEFT B 11/24/2018 STEPHEN PRICE Flavio Ot C79.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 11/24/2018 STEPHEN PRICE Flavio Ot Z01.89 ENCOUNTER FOR OTHER SPECIFIED SPECIAL EX 11/25/2018 FAVIAN COWARTP Ot E78.00 PURE HYPERCHOLESTEROLEMIA, UNSPECIFIED 11/25/2018 SOFYA, FAVIAN TELEVISION CABLE INSTALLER Ot F17.210 NICOTINE DEPENDENCE, CIGARETTES, UNCOMPL 11/25/2018 SOFYA, FAVIAN TELEVISION CABLE INSTALLER Ot F17.290 NICOTINE DEPENDENCE, OTHER TOBACCO PRODU 11/25/2018 FAVIAN COWARTP Ot G40.909 EPILEPSY, UNSP, NOT INTRACTABLE, WITHOUT 11/25/2018 SOFYA FAVIAN TELEVISION CABLE INSTALLER Ot G47.30 SLEEP APNEA, UNSPECIFIED 11/25/2018 SOFYA FAVIAN TELEVISION CABLE INSTALLER Ot G62.9 POLYNEUROPATHY, UNSPECIFIED 11/25/2018 SOFYA, FAVIAN TELEVISION CABLE INSTALLER Ot I10 ESSENTIAL (PRIMARY) HYPERTENSION 11/25/2018 SOFYA FAVIAN TELEVISION CABLE INSTALLER Ot J06.9 ACUTE UPPER RESPIRATORY INFECTION, UNSPE 11/25/2018 FAVIAN COWARTP Ot J44.9 CHRONIC OBSTRUCTIVE PULMONARY DISEASE, U 11/25/2018 FAVIAN COWARTP Ot R05 COUGH 11/25/2018 FAVIAN COWART TELEVISION CABLE INSTALLER Ot S12.100A UNSP DISP FX OF SECOND CERVICAL VERTEBRA 11/25/2018 FAVIAN COWARTP Ot W19.XXXA UNSPECIFIED FALL, INITIAL ENCOUNTER 11/25/2018 FAVIAN COWARTP Ot Z79.51 SENIOR CARE (CURRENT) USE OF INHALED STERO 11/25/2018 FAVIAN COWARTP Ot Z82.49 FAMILY HX OF ISCHEM HEART DIS AND OTH DI 11/25/2018 SOFYAFAVIAN Bustos TELEVISION CABLE INSTALLER Ot Z85.118 PERSONAL HISTORY OF MALIGNANT NEOPLASM O 11/25/2018 SOFYAFAVIAN Bustos TELEVISION CABLE INSTALLER Ot Z87.81 PERSONAL HISTORY OF (HEALED) TRAUMATIC F 11/25/2018 SOFYA FAVIAN TELEVISION CABLE INSTALLER Ot Z88.6 ALLERGY STATUS TO ANALGESIC AGENT STATUS 11/27/2018 FAVIAN COWART TELEVISION CABLE INSTALLER Ot E78.00 PURE HYPERCHOLESTEROLEMIA, UNSPECIFIED 11/27/2018 SOFYA, FAVIAN TELEVISION CABLE INSTALLER Ot F17.210 NICOTINE DEPENDENCE, CIGARETTES, UNCOMPL 11/27/2018 SOFYA, FAVIAN TELEVISION CABLE INSTALLER Ot F17.290 NICOTINE DEPENDENCE, OTHER TOBACCO PRODU 11/27/2018 SOFYA, FAVIAN TELEVISION CABLE INSTALLER Ot G40.909 EPILEPSY, UNSP, NOT INTRACTABLE, WITHOUT 11/27/2018 SOFYA, FAVIAN TELEVISION CABLE INSTALLER Ot G47.30 SLEEP APNEA, UNSPECIFIED 11/27/2018 SOFYA, FAVIAN TELEVISION CABLE INSTALLER Ot G62.9 POLYNEUROPATHY, UNSPECIFIED 11/27/2018 SOFYA, FAVIAN TELEVISION CABLE INSTALLER Ot I10 ESSENTIAL (PRIMARY) HYPERTENSION 11/27/2018 SOFYA, FAVIAN TELEVISION CABLE INSTALLER Ot J06.9 ACUTE UPPER RESPIRATORY INFECTION, UNSPE 11/27/2018 SOFYA, FAVIAN TELEVISION CABLE INSTALLER Ot J44.9 CHRONIC OBSTRUCTIVE PULMONARY DISEASE, U 11/27/2018 FAVIAN COWART TELEVISION CABLE INSTALLER Ot R05 COUGH 11/27/2018 SOFYA, FAVIAN TELEVISION CABLE INSTALLER Ot S12.100A UNSP DISP FX OF SECOND CERVICAL VERTEBRA 11/27/2018 SOFYA, FAVIAN TELEVISION CABLE INSTALLER Ot W19.XXXA UNSPECIFIED FALL, INITIAL ENCOUNTER 11/27/2018 FAVIAN COWART TELEVISION CABLE INSTALLER Ot Z79.51 HEAD WAITRESS (CURRENT) USE OF INHALED STERO 11/27/2018 FAVIAN COWART TELEVISION CABLE INSTALLER Ot Z82.49 FAMILY HX OF ISCHEM HEART DIS AND OTH DI 11/27/2018 SOFYAFAVIAN Bustos TELEVISION CABLE INSTALLER Ot Z85.118 PERSONAL HISTORY OF MALIGNANT NEOPLASM O 11/27/2018 FAVIAN COWART TELEVISION CABLE INSTALLER Ot Z87.81 PERSONAL HISTORY OF (HEALED) TRAUMATIC F 11/27/2018 SOFYA FAVIAN TELEVISION CABLE INSTALLER Ot Z88.6 ALLERGY STATUS TO ANALGESIC AGENT [...] CHEMOTHERAP 12/10/2018 STEPHEN PRICE Ot Z79.899 OTHER SENIOR CARE (CURRENT) DRUG THERAPY 12/10/2018 STEPHEN PRICE Ot Z87.891 PERSONAL HISTORY OF NICOTINE DEPENDENCE 01/09/2019 FAVIAN COWART Ot E78.00 PURE HYPERCHOLESTEROLEMIA, UNSPECIFIED 01/09/2019 FAVIAN OCWART Ot F17.210 NICOTINE DEPENDENCE, CIGARETTES, UNCOMPL 01/09/2019 [...] INITIAL ENCOUNTER 01/09/2019 FAVIAN COWART Ot Z79.51 HEAD WAITRESS (CURRENT) USE OF INHALED STERO 01/09/2019 FAVIAN [...] MALIGNANT NEOPLASM OF UNSPECIF 01/18/2019 SOFYA, FAVIAN TELEVISION CABLE INSTALLER Ot E78.00 PURE HYPERCHOLESTEROLEMIA, UNSPECIFIED 01/18/2019 SOFAY FAVIAN TELEVISION CABLE INSTALLER Ot G40.909 EPILEPSY, UNSP, NOT INTRACTABLE, WITHOUT 01/18/2019 FAVIAN COWART TELEVISION CABLE INSTALLER Ot G62.9 POLYNEUROPATHY, UNSPECIFIED 01/18/2019 FAVIAN COWART TELEVISION CABLE INSTALLER Ot I10 ESSENTIAL (PRIMARY) HYPERTENSION 01/18/2019 FAVIAN COWARTP Ot J44.9 CHRONIC OBSTRUCTIVE PULMONARY DISEASE, U 01/18/2019 FAVIAN COWART TELEVISION CABLE INSTALLER Ot M19.012 PRIMARY OSTEOARTHRITIS, LEFT SHOULDER 01/18/2019 FAVIAN COWART TELEVISION CABLE INSTALLER Ot M25.512 PAIN IN LEFT SHOULDER 01/18/2019 FAVIAN COWART TELEVISION CABLE INSTALLER Ot M75.102 UNSP ROTATR-CUFF TEAR/RUPTR OF LEFT SHOU 01/18/2019 FAVIAN COWART TELEVISION CABLE INSTALLER Ot W19.XXXA UNSPECIFIED FALL, INITIAL ENCOUNTER 01/18/2019 FAVIAN COWARTP Ot Z79.51 SENIOR CARE (CURRENT) USE OF INHALED STERO 01/18/2019 FAVIAN COWART TELEVISION CABLE INSTALLER Ot Z82.49 FAMILY HX OF ISCHEM HEART DIS AND OTH DI 01/18/2019 FAVIAN COWART TELEVISION CABLE INSTALLER Ot Z87.891 PERSONAL HISTORY OF NICOTINE DEPENDENCE 01/18/2019 FAVIAN COWART TELEVISION CABLE INSTALLER Ot Z88.6 ALLERGY STATUS TO ANALGESIC AGENT STATUS 01/18/2019 FAVIAN COWART TELEVISION CABLE INSTALLER Ot Z99.81 DEPENDENCE ON SUPPLEMENTAL OXYGEN 01/21/2019 FAVIAN COWART TELEVISION CABLE INSTALLER Ot C34.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 01/21/2019 FAVIAN COWART TELEVISION CABLE INSTALLER Ot C79.9 SECONDARY MALIGNANT NEOPLASM OF UNSPECIF 01/21/2019 FAVIAN COWART TELEVISION CABLE INSTALLER Ot E78.00 PURE HYPERCHOLESTEROLEMIA, UNSPECIFIED 01/21/2019 FAVIAN COWART TELEVISION CABLE INSTALLER Ot G40.909 EPILEPSY, UNSP, NOT INTRACTABLE, WITHOUT 01/21/2019 FAVIAN COWART TELEVISION CABLE INSTALLER Ot G62.9 POLYNEUROPATHY, UNSPECIFIED 01/21/2019 SOFYA FAVIAN TELEVISION CABLE INSTALLER Ot I10 ESSENTIAL (PRIMARY) HYPERTENSION 01/21/2019 FAVIAN COWART TELEVISION CABLE INSTALLER Ot J44.9 CHRONIC OBSTRUCTIVE PULMONARY DISEASE, U 01/21/2019 FAVIAN COWART TELEVISION CABLE INSTALLER Ot M19.012 PRIMARY OSTEOARTHRITIS, LEFT SHOULDER 01/21/2019 FAVIAN COWART Ot M25.512 PAIN IN LEFT SHOULDER 01/21/2019 SOFYAFAVIAN Bustos Ot M75.102 UNSP ROTATR-CUFF TEAR/RUPTR OF LEFT SHOU 01/21/2019 SOFYAFAVIAN Bustos Ot W19.XXXA UNSPECIFIED FALL, INITIAL ENCOUNTER 01/21/2019 SOFYAFAVIAN Butsos Ot Z79.51 HEAD WAITRESS (CURRENT) USE OF INHALED STERO 01/21/2019 FAVIAN [...] CHEMOTHERAP 02/17/2019 STEPHEN PRICE Ot Z79.899 OTHER SENIOR CARE (CURRENT) DRUG THERAPY 02/17/2019 STEPHEN PRICE Ot Z87.891 PERSONAL HISTORY OF NICOTINE DEPENDENCE 02/18/2019 AMANDEEP GENAO DO Ot M47.812 SPONDYLOSIS W/O [...] ANTINEOPLASTIC CHEMOTHERAP 02/18/2019 DEESTEPHEN Ot Z79.899 OTHER HEAD WAITRESS (CURRENT) DRUG THERAPY 02/18/2019 DEE, STEPHEN Muniz [...] 02/20/2019 GELLENDER DO, AMANDEEP Pineda Ot Z79.51 SENIOR CARE (CURRENT) USE OF INHALED STERO 02/20/2019 GELLENDER DO, AMANDEEP Pineda Ot Z85.118 PERSONAL HISTORY OF MALIGNANT NEOPLASM O 02/20/2019 GELLENDER DO, AMANDEEP Pineda Ot Z87.891 PERSONAL HISTORY OF NICOTINE DEPENDENCE 02/20/2019 [facility] LASSITER, AMANDEEP Pineda Ot Z99.81 DEPENDENCE ON SUPPLEMENTAL OXYGEN 02/21/2019 [facility] LASSITER, AMANDEEP Pineda Ot M47.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 02/21/2019 [facility] AMANDEEP Pineda Ot S12.110A ANTERIOR DISPLACED TYPE II DENS FRACTURE 02/21/2019 [facility] LASSITER, AMANDEEP Pineda Ot W19.XXXA UNSPECIFIED FALL, INITIAL ENCOUNTER 03/12/2019 [facility] LASSITER, AMANDEEP Pineda Ot R56.9 UNSPECIFIED CONVULSIONS 03/12/2019 [facility] AMANDEEP Pineda Ot F17.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, UNSPECIFIED, UNCOMP 03/12/2019 [facility] , AMANDEEP Pineda Ot J44.9 CHRONIC OBSTRUCTIVE PULMONARY DISEASE, U 03/12/2019 [facility] AMANDEEP Pineda Ot R63.4 ABNORMAL WEIGHT LOSS 03/12/2019 [facility] AMANDEEP Pineda Ot J44.9 CHRONIC OBSTRUCTIVE PULMONARY DISEASE, U 03/12/2019 [facility] AMANDEEP Pineda Ot R63.4 ABNORMAL WEIGHT LOSS 03/12/2019 [facility], AMANDEEP Pineda Ot R63.4 ABNORMAL WEIGHT LOSS 03/12/2019 [facility], AMANDEEP Pineda Ot G40.909 EPILEPSY, UNSP, NOT INTRACTABLE, WITHOUT 03/12/2019 [facility] AMANDEEP Pineda Ot J44.9 CHRONIC OBSTRUCTIVE PULMONARY DISEASE, U 03/12/2019 [facility], AMANDEEP Pineda Ot E87.1 HYPO-OSMOLALITY AND HYPONATREMIA 03/12/2019 CHADWICK LASSITERAMANDEEP Ot G40.909 EPILEPSY, UNSP, NOT INTRACTABLE, WITHOUT 03/12/2019 [facility], AMANDEEP Pineda Ot J44.9 CHRONIC OBSTRUCTIVE PULMONARY DISEASE, U 03/12/2019 [facility] AMANDEEP Pineda Ot G40.909 EPILEPSY, UNSP, NOT INTRACTABLE, WITHOUT 03/12/2019 [facility] AMANDEEP Ot J34.89 OTHER SPECIFIED DISORDERS OF [...] OBSTRUCTIVE PULMONARY DISEASE, U 03/12/2019 NINA ANAYA DRY ICE MAKER Ot M79.604 PAIN IN RIGHT LEG 03/12/2019 NINA ANAYA DRY ICE MAKER Ot M79.605 PAIN IN LEFT LEG 03/12/2019 NINA ANAYA DRY ICE MAKER Ot M79.89 OTHER SPECIFIED SOFT TISSUE DISORDERS 03/12/2019 NINA ANAYA DRY ICE MAKER Ot R91.8 OTHER NONSPECIFIC ABNORMAL FINDING OF DAVID 03/12/2019 SIVA RESENDIZP Ot C34.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, LEFT B 03/12/2019 SIVA RESENDIZ TELEVISION CABLE INSTALLER Ot C79.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 03/12/2019 AMANDEEP GENAO DO Ot B35.1 TINEA UNGUIUM 03/12/2019 SIVA RESENDIZ TELEVISION CABLE INSTALLER Ot C34.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, LEFT B 03/12/2019 SIVA RESENDIZ Ot C79.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 03/12/2019 SIVA RESENDIZ Ot C34.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, LEFT B 03/12/2019 SIVA RESENDIZ Ot C34.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, LEFT B 03/12/2019 SIVA RESENDIZ Ot C79.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 03/12/2019 JOSEBRAYAN AMANDEEP LASSITER Ot M43.12 SPONDYLOLISTHESIS, CERVICAL REGION 03/12/2019 [facility] AMANDEEP LASSITER Ot M47.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 03/12/2019 [facility] AMANDEEP LASSITER Ot S19.9XXA UNSPECIFIED INJURY OF NECK, INITIAL ENCO 03/12/2019 SIVA RESENDIZ Ot C34.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, LEFT B 03/12/2019 SIVA RESENDIZ Ot C79.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 03/12/2019 [facility] Ot M19.011 PRIMARY OSTEOARTHRITIS, RIGHT SHOULDER 03/12/2019 [facility] Ot M79.621 PAIN IN RIGHT UPPER ARM 03/12/2019 [facility] Ot S79.911A UNSPECIFIED INJURY OF RIGHT HIP, INITIAL 03/12/2019 [facility]WICK LASSITERAMANDEEP Ot W19.XXXA UNSPECIFIED FALL, INITIAL ENCOUNTER 03/12/2019 JOSEBRAYAN AMANDEEP LASSITER Ot R05 COUGH 03/12/2019 CHADWICK LASSITERAMANDEEP Ot R91.8 OTHER NONSPECIFIC ABNORMAL FINDING OF DAVID 03/12/2019 [facility] Ot Z95.828 PRESENCE OF OTHER VASCULAR IMPLANTS AND 03/12/2019 SIVA RESENDIZ Ot J98.11 ATELECTASIS 03/12/2019 SIVA RESENDIZ Ot M43.12 SPONDYLOLISTHESIS, CERVICAL REGION 03/12/2019 SIVA RESENDIZ Ot M47.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 03/12/2019 SIVA RESENDIZ Ot S12.190A OTH DISP FX OF SECOND CERVICAL VERTEBRA, 03/12/2019 SIVA RESENDIZ TELEVISION CABLE INSTALLER Ot W19.XXXA UNSPECIFIED FALL, INITIAL ENCOUNTER 03/12/2019 SIVA RESENDIZ TELEVISION CABLE INSTALLER Ot Z95.828 PRESENCE OF OTHER VASCULAR IMPLANTS AND 03/12/2019 NINA ANAYA APRN Ot C34.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, LEFT B 03/12/2019 NINA ANAYA DRY ICE MAKER Ot F17.201 NICOTINE DEPENDENCE, UNSPECIFIED, IN REM 03/12/2019 NINA ANAYA DRY ICE MAKER Ot I25.10 ATHSCL HEART DISEASE OF [place] CORONARY 03/12/2019 NINA ANAYA APRN Ot I70.0 [...] CAR Ot I25.10 ATHSCL HEART DISEASE OF [place] CORONARY 03/12/2019 EFRAIN RESENDIZBRENDA Jennifer TELEVISION CABLE INSTALLER Ot I70.0 ATHEROSCLEROSIS OF [place] 03/12/2019 EFRAIN RESENDIZBRENDA Jennifer ROSASP Ot J43.9 EMPHYSEMA, UNSPECIFIED 03/12/2019 SIVA RESENDIZP Ot N28.1 CYST OF KIDNEY, ACQUIRED 03/12/2019 SIVA RESENDIZP Ot Z01.89 ENCOUNTER FOR OTHER SPECIFIED SPECIAL EX 03/12/2019 RESENDIZEFRAINBRENDA Rodriguez TELEVISION CABLE INSTALLER Ot Z79.51 HEAD WAITRESS (CURRENT) USE OF INHALED STERO 03/12/2019 EFRAIN RESENDIZBRENDA Jennifer CAR Ot Z85.118 PERSONAL HISTORY OF MALIGNANT NEOPLASM O 03/12/2019 CHADWICK LASSITERAMANDEEP Ot M19.012 PRIMARY OSTEOARTHRITIS, LEFT SHOULDER 03/12/2019 [facility] Ot S49.92XA UNSP INJURY OF LEFT SHOULDER AND UPPER A 03/12/2019 [facility] AMANDEEP Ot W19.XXXA UNSPECIFIED FALL, INITIAL ENCOUNTER 03/12/2019 [facility] LASSITERAMANDEEP Ot M47.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 03/12/2019 [facility] Ot S12.110D ANT DISPL TYPE II DENS FRACTURE, SUBS FO 03/12/2019 CH[facility]WICK LASSITERAMANDEEP Ot W19.XXXD UNSPECIFIED FALL, SUBSEQUENT ENCOUNTER 03/12/2019 CHADWICK LASSITERAMANDEEP Ot M47.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 03/12/2019 [facility] S12.110A ANTERIOR DISPLACED TYPE II DENS FRACTURE 03/12/2019 [facility] Ot W19.XXXA UNSPECIFIED FALL, INITIAL ENCOUNTER [...] CHEMOTHERAP 03/12/2019 STEPHEN PRICE Ot Z79.899 OTHER HEAD WAITRESS (CURRENT) DRUG THERAPY 03/12/2019 STEPHEN PRICE Ot [...] PAIN IN LEFT LEG 03/12/2019 NINA ANAYA DRY ICE MAKER Ot M79.89 OTHER SPECIFIED SOFT TISSUE DISORDERS 03/12/2019 NINA ANAYA DRY ICE MAKER Ot R91.8 OTHER NONSPECIFIC ABNORMAL FINDING OF DAVID 03/12/2019 SIVA RESENDIZP Ot C34.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, LEFT B 03/12/2019 SIVA RESENDIZP Ot C79.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 03/12/2019 AMANDEEP GENAO DO Ot B35.1 TINEA UNGUIUM 03/12/2019 SIVA RESENDIZ TELEVISION CABLE INSTALLER Ot C34.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, [...] SECOND CERVICAL VERTEBRA, 03/12/2019 RESENDIZ, HILAH S TELEVISION CABLE INSTALLER Ot W19.XXXA UNSPECIFIED FALL, INITIAL ENCOUNTER 03/12/2019 SIVA RESENDIZ JOCELINE Ot Z95.828 PRESENCE OF OTHER VASCULAR IMPLANTS AND 03/12/2019 NINA ANAYA APRN Ot C34.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, LEFT B 03/12/2019 NINA ANAYA APRN Ot F17.201 NICOTINE DEPENDENCE, UNSPECIFIED, IN REM 03/12/2019 NINA ANAYA APRN Ot I25.10 ATHSCL HEART DISEASE OF [place] CORONARY 03/12/2019 NINA ANAYA APRN Ot I70.0 ATHEROSCLEROSIS OF [place] 03/12/2019 NINA ANAYA APRN Ot J18.9 PNEUMONIA, UNSPECIFIED ORGANISM 03/12/2019 NINA ANAYA APRN Ot J43.9 EMPHYSEMA, UNSPECIFIED 03/12/2019 NINA ANAYA APRN Ot J96.20 ACUTE AND CHR RESP FAILURE, UNSP W HYPOX 03/12/2019 NNIA ANAYA APRN Ot J98.4 OTHER DISORDERS OF [...] CAR Ot I25.10 ATHSCL HEART DISEASE OF [place] CORONARY 03/12/2019 SIVA RESENDIZP Ot I70.0 ATHEROSCLEROSIS OF [place] 03/12/2019 SIVA RESENDIZP Ot J43.9 EMPHYSEMA, UNSPECIFIED 03/12/2019 SIVA RESENDIZ Ot N28.1 CYST OF KIDNEY, ACQUIRED 03/12/2019 SIVA RESENDIZP Ot Z01.89 ENCOUNTER FOR OTHER SPECIFIED SPECIAL EX 03/12/2019 EFRAIN RESENDIZBRENDA Jennifer ROSASP Ot Z79.51 SENIOR CARE (CURRENT) USE OF INHALED STERO 03/12/2019 SIVA [...] M47.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 03/12/2019 [facility] S12.110A ANTERIOR DISPLACED TYPE II DENS FRACTURE 03/12/2019 [facility] AMANDEEP Ot W19.XXXA UNSPECIFIED FALL, INITIAL [...] 03/12/2019 DEE BOBAN N Ot Z79.899 OTHER HEAD WAITRESS (CURRENT) DRUG THERAPY 03/12/2019 DEE SABASAN N Ot Z87.891 PERSONAL HISTORY OF NICOTINE DEPENDENCE 03/16/2019 HÉCTOR NINA E DRY ICE MAKER Ot C34.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, LEFT B 03/16/2019 HÉCTOR, NINA E DRY ICE MAKER Ot F17.201 NICOTINE DEPENDENCE, UNSPECIFIED, IN REM 03/16/2019 HÉCTOR NINA E DRY ICE MAKER Ot J18.9 PNEUMONIA, UNSPECIFIED ORGANISM 03/16/2019 HÉCTOR, NINA E DRY ICE MAKER Ot J44.1 CHRONIC OBSTRUCTIVE PULMONARY DISEASE W 03/16/2019 HÉCTOR, NINA E DRY ICE MAKER Ot J96.20 ACUTE AND CHR RESP FAILURE, UNSP W HYPOX 03/19/2019 HÉCTOR NINA E DRY ICE MAKER Ot C34.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, LEFT B 03/19/2019 HÉCTOR, NINA E DRY ICE MAKER Ot F17.201 NICOTINE DEPENDENCE, UNSPECIFIED, IN REM 03/19/2019 HÉCTOR, NINA E DRY ICE MAKER Ot J18.9 PNEUMONIA, UNSPECIFIED ORGANISM 03/19/2019 HÉCTOR NINA E DRY ICE MAKER Ot J44.1 CHRONIC OBSTRUCTIVE PULMONARY DISEASE W 03/19/2019 HÉCTOR, NINA E DRY ICE MAKER Ot J96.20 ACUTE AND CHR RESP FAILURE, [...] 03/30/2019 DEE BOBAN N Ot Z79.899 OTHER HEAD WAITRESS (CURRENT) DRUG THERAPY 03/30/2019 STEPHEN PRICE Ot [...] CHEMOTHERAP 04/04/2019 STEPHEN PRICE Ot Z79.899 OTHER SENIOR CARE (CURRENT) DRUG THERAPY 04/04/2019 STEPHEN PRICE Ot [...] RESENDIZP Ot I25.10 ATHSCL HEART DISEASE OF [place] CORONARY 04/13/2019 SIVA RESENDIZP Ot I70.0 ATHEROSCLEROSIS OF [place] 04/13/2019 SIVA RESENDIZP Ot J43.9 EMPHYSEMA, UNSPECIFIED 04/13/2019 SIVA RESENDIZ Ot N28.1 CYST OF KIDNEY, ACQUIRED 04/13/2019 SIVA RESENDIZP Ot Z01.89 ENCOUNTER FOR OTHER SPECIFIED SPECIAL EX 04/13/2019 SIVA RESENDIZ TELEVISION CABLE INSTALLER Ot Z79.51 SENIOR CARE (CURRENT) USE OF INHALED STERO 04/13/2019 SIVA RESENDIZ TELEVISION CABLE INSTALLER Ot Z85.118 PERSONAL HISTORY OF MALIGNANT NEOPLASM [...] 04/22/2019 MARY RIOS, STEFAN Zuniga Ot Z79.51 HEAD WAITRESS (CURRENT) USE OF INHALED STERO 04/22/2019 MARY RIOS, STEFAN Zuniga Ot Z82.49 FAMILY HX OF ISCHEM HEART DIS AND OTH DI 04/22/2019 AMRY RIOS, STEFAN Zuniga Ot Z85.118 PERSONAL HISTORY [...] CHEMOTHERAP 05/10/2019 STEPHEN PRICE Ot Z79.899 OTHER HEAD WAITRESS (CURRENT) DRUG THERAPY 05/10/2019 STEPHEN PRICE Ot [...] 05/19/2019 GELLENDER DO, AMANDEEP Pineda Ot Z79.891 SENIOR CARE (CURRENT) USE OF OPIATE ANALGE 05/19/2019 GELLENDER DO, AMANDEEP Pineda Ot Z79.899 OTHER HEAD WAITRESS (CURRENT) DRUG THERAPY 05/19/2019 GELLENDER DO, AMANDEEP [...] 05/19/2019 GELLENDER DO, AMANDEEP Pineda Ot Z79.891 HEAD WAITRESS (CURRENT) USE OF OPIATE ANALGE 05/19/2019 GELLENDER DO, AMANDEEP Pineda Ot Z79.899 OTHER HEAD WAITRESS (CURRENT) DRUG THERAPY 05/19/2019 GELLENDER DO, AMANDEEP [...] UNSPECIFIED FALL, INITIAL ENCOUNTER 05/31/2019 SIVA RESENDIZ TELEVISION CABLE INSTALLER Ot G25.5 OTHER [place]OREA 05/31/2019 SIVA RESENDIZ TELEVISION CABLE INSTALLER Ot 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 MAXILLARY SINUSITIS 05/31/2019 SIVA RESENDIZ TELEVISION CABLE INSTALLER Ot R 51 HEADACHE 05/31/2019 SIVA RESENDIZ TELEVISION CABLE INSTALLER Ot W19.XXXA UNSPECIFIED FALL, INITIAL ENCOUNTER 06/01/2019 SIVA RESENDIZ TELEVISION CABLE INSTALLER Ot G25.5 OTHER [place] 06/01/2019 SIVA RESENDIZ TELEVISION CABLE INSTALLER Ot 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 MAXILLARY SINUSITIS 06/01/2019 SIVA RESENDIZ TELEVISION CABLE INSTALLER Ot R 51 HEADACHE 06/01/2019 SIVA RESENDIZ TELEVISION CABLE INSTALLER Ot W19.XXXA UNSPECIFIED FALL, INITIAL ENCOUNTER 06/04/2019 MARY RIOS, STEFAN Zuniga Ot C34.90 MALIGNANT NEOPLASM OF UNSP [facility] 06/04/2019 MARY RIOS, STEFAN Zuniga Ot E78.00 PURE HYPERCHOLESTEROLEMIA, UNSPECIFIED 06/04/2019 STEFAN HERNANDEZ MD Ot G40.909 EPILEPSY, UNSP, NOT INTRACTABLE, WITHOUT 06/04/2019 STEFAN HERNANDEZ MD Ot G47.30 SLEEP APNEA, UNSPECIFIED 06/04/2019 STEFAN HERNANDEZ MD Ot G62.9 POLYNEUROPATHY, UNSPECIFIED 06/04/2019 STEFAN HERNANDEZ MD Ot I10 ESSENTIAL (PRIMARY) HYPERTENSION 06/04/2019 STEFAN HERNANDEZ MD Ot J44.1 CHRONIC OBSTRUCTIVE PULMONARY DISEASE W 06/04/2019 STEFAN HERNANDEZ MD Ot J45.909 UNSPECIFIED ASTHMA, UNCOMPLICATED 06/04/2019 STEFAN HERNANDEZ MD Ot R06.02 SHORTNESS OF BREATH 06/04/2019 STEFAN HERNANDEZ MD Ot R06.03 ACUTE RESPIRATORY DISTRESS 06/04/2019 STEFAN HERNANDEZ MD Ot Z82.49 FAMILY HX OF ISCHEM HEART DIS AND OTH DI 06/04/2019 STEFAN HERNANDEZ MD Ot Z86.12 PERSONAL HISTORY OF POLIOMYELITIS 06/04/2019 STEFAN HERNANDEZ MD Ot Z87.891 PERSONAL HISTORY OF NICOTINE DEPENDENCE 06/04/2019 STEFAN HERNANDEZ MD Ot Z88.6 ALLERGY STATUS TO ANALGESIC AGENT STATUS 06/04/2019 STEFAN HERNANDEZ MD Ot Z99.81 DEPENDENCE ON SUPPLEMENTAL OXYGEN 06/08/2019 GELLENDER DO, AMANDEEP Pineda Ot R56.9 UNSPECIFIED CONVULSIONS 06/08/2019 GELLENDER DO, AMANDEEP Pineda Ot F17.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, UNSPECIFIED, UNCOMP 06/08/2019 GELLENDER DO, AMANDEEP Pineda Ot J44.9 CHRONIC OBSTRUCTIVE PULMONARY DISEASE, U 06/08/2019 GELLENDER DO, AMANDEEP Pineda Ot R63.4 ABNORMAL WEIGHT LOSS 06/08/2019 GELLENDER DO, AMANDEEP Pineda Ot J44.9 CHRONIC OBSTRUCTIVE PULMONARY DISEASE, U 06/08/2019 GELLENDER DO, AMANDEEP Pineda Ot R63.4 ABNORMAL WEIGHT LOSS 06/08/2019 GELLENDER DO, AMANDEEP Pineda Ot R63.4 ABNORMAL WEIGHT LOSS 06/08/2019 GELLENDER DO, AMANDEEP Miriam Ot G40.909 EPILEPSY, UNSP, NOT INTRACTABLE, WITHOUT 06/08/2019 GELLENDER DO, AMANDEEP Pineda Ot J44.9 CHRONIC OBSTRUCTIVE PULMONARY DISEASE, U 06/08/2019 GELLENDER DO, AMANDEEP Pineda Ot E87.1 HYPO-OSMOLALITY AND HYPONATREMIA 06/08/2019 GELLENDER DO, AMANDEEP Pineda Ot G40.909 EPILEPSY, UNSP, NOT INTRACTABLE, WITHOUT 06/08/2019 GELLENDER DO, AMANDEEP Pineda Ot J44.9 CHRONIC OBSTRUCTIVE PULMONARY DISEASE, U 06/08/2019 GELLENDER DO, AMANDEEP Miriam Ot G40.909 EPILEPSY, UNSP, NOT INTRACTABLE, WITHOUT 06/08/2019 GELLENDER DO, AMANDEEP Pineda Ot J34.89 OTHER SPECIFIED DISORDERS OF NOSE AND NA 06/08/2019 [facility], AM[facility]DEEP Pineda Ot S99.912A UNSPECIFIED INJURY OF LEFT ANKLE, INITIA 06/08/2019 [facility], AMANDEEP Pineda Ot W19.XXXA UNSPECIFIED FALL, INITIAL ENCOUNTER 06/08/2019 [facility], AMANDEEP Pineda Ot Y99.8 OTHER EXTERNAL CAUSE STATUS 06/08/2019 [facility], AMANDEEP Miriam Ot G40.909 EPILEPSY, UNSP, NOT INTRACTABLE, WITHOUT 06/08/2019 GELLENDER DO, AMANDEEP Pineda Ot R06.02 SHORTNESS OF BREATH 06/08/2019 [facility], AMANDEEP Pineda Ot R63.4 ABNORMAL WEIGHT LOSS 06/08/2019 STEPHEN PRICE Ot J43.9 EMPHYSEMA, UNSPECIFIED 06/08/2019 STEPHEN PRICE Ot R91.1 SOLITARY PULMONARY NODULE 06/08/2019 RANI PACHECO DO Ot F17.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, UNSPECIFIED, UNCOMP 06/08/2019 RANI PACHECO DO Ot J96. 21 ACUTE AND CHRONIC RESPIRATORY FAILURE [place] 06/08/2019 RANI PACHECO DO Ot R22. 0 LOCALIZED SWELLING, MASS AND LUMP, HEAD 06/08/2019 RANI PACHECO DO Ot Z99. 81 DEPENDENCE ON SUPPLEMENTAL OXYGEN 06/08/2019 RANI PACHECO DO Ot J44. 9 CHRONIC OBSTRUCTIVE PULMONARY DISEASE, U 06/08/2019 RANI PACHECO DO Ot M25.559 PAIN IN UNSPECIFIED HIP 06/08/2019 RANI PACHECO DO Ot R91. 8 OTHER NONSPECIFIC ABNORMAL FINDING OF DAVID 06/08/2019 RANI PACHECO DO Ot Z72. 0 TOBACCO USE 06/08/2019 [facility] Ot J44.9 CHRONIC OBSTRUCTIVE PULMONARY DISEASE, U 06/08/2019 HÉCTORIRMA TATUMINE E DRY ICE MAKER Ot M79.604 PAIN IN RIGHT LEG 06/08/2019 HÉCTOR NINA E DRY ICE MAKER Ot M79.605 PAIN IN LEFT LEG 06/08/2019 HÉCTOR, NINA E DRY ICE MAKER Ot M79.89 OTHER SPECIFIED SOFT TISSUE DISORDERS 06/08/2019 HÉCTOR NINA E DRY ICE MAKER Ot R91.8 OTHER NONSPECIFIC ABNORMAL FINDING OF DAVID 06/08/2019 SIVA RESENDIZ TELEVISION CABLE INSTALLER Ot C34.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, LEFT B 06/08/2019 SIVA RESENDIZ TELEVISION CABLE INSTALLER Ot C79.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 06/08/2019 [facility] B35.1 TINEA UNGUIUM 06/08/2019 SIVA RESENDIZ S TELEVISION CABLE INSTALLER Ot C34.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, LEFT B 06/08/2019 SIVA RESENDIZ TELEVISION CABLE INSTALLER Ot C79.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 06/08/2019 SIVA RESENDIZ S TELEVISION CABLE INSTALLER Ot C34.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, LEFT B 06/08/2019 SIVA RESENDIZ TELEVISION CABLE INSTALLER Ot C34.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, LEFT B 06/08/2019 SIVA RESENDIZ S TELEVISION CABLE INSTALLER Ot C79.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 06/08/2019 [facility] Ot M43.12 SPONDYLOLISTHESIS, CERVICAL REGION 06/08/2019 [facility] Ot M47.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 06/08/2019 [facility] Ot S19.9XXA UNSPECIFIED INJURY OF NECK, INITIAL ENCO 06/08/2019 SIVA RESENDIZ TELEVISION CABLE INSTALLER Ot C34.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, LEFT B 06/08/2019 SIVA RESENDIZ S TELEVISION CABLE INSTALLER Ot C79.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 06/08/2019 [facility] Ot M19.011 PRIMARY OSTEOARTHRITIS, RIGHT SHOULDER 06/08/2019 [facility], AMANDEEP Pineda Ot M79.621 PAIN IN RIGHT UPPER ARM 06/08/2019 [facility], AMANDEEP Pineda Ot S79.911A UNSPECIFIED INJURY OF RIGHT HIP, INITIAL 06/08/2019 [facility]WICK LASSITER, AMANDEEP Pineda Ot W19.XXXA UNSPECIFIED FALL, INITIAL ENCOUNTER 06/08/2019 [facility] , AMANDEEP Pineda Ot R05 COUGH 06/08/2019 [facility] DO, AMANDEEP Pineda Ot R91.8 OTHER NONSPECIFIC ABNORMAL FINDING OF DAVID 06/08/2019 [facility], AMANDEEP Pineda Ot Z95.828 PRESENCE OF OTHER VASCULAR IMPLANTS AND 06/08/2019 SIVA RESENDIZP Ot J98.11 ATELECTASIS 06/08/2019 SIVA RESENDIZ TELEVISION CABLE INSTALLER Ot M43.12 SPONDYLOLISTHESIS, CERVICAL REGION 06/08/2019 SIVA RESENDIZ TELEVISION CABLE INSTALLER Ot M47.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 06/08/2019 SIVA RESENDIZP Ot S12.190A OTH DISP FX OF SECOND CERVICAL VERTEBRA, 06/08/2019 SIVA RESENDIZ TELEVISION CABLE INSTALLER Ot W19.XXXA UNSPECIFIED FALL, INITIAL ENCOUNTER 06/08/2019 SIVA RESENDIZ TELEVISION CABLE INSTALLER Ot Z95.828 PRESENCE OF OTHER VASCULAR IMPLANTS AND 06/08/2019 NINA ANAYA APRN Ot C34.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, LEFT B 06/08/2019 NINA ANAYA DRY ICE MAKER Ot F17.201 NICOTINE DEPENDENCE, UNSPECIFIED, IN REM 06/08/2019 NINA ANAYA DRY ICE MAKER Ot I25.10 ATHSCL HEART DISEASE OF [place] CORONARY 06/08/2019 NINA ANAYA DRY ICE MAKER Ot I70.0 ATHEROSCLEROSIS OF [place] 06/08/2019 NINA ANAYA APRN Ot J18.9 PNEUMONIA, UNSPECIFIED ORGANISM 06/08/2019 NINA ANAYA DRY ICE MAKER Ot J43.9 EMPHYSEMA, UNSPECIFIED 06/08/2019 NINA ANAYA DRY ICE MAKER Ot J96.20 ACUTE AND CHR RESP FAILURE, UNSP W HYPOX 06/08/2019 NINA ANAYA DRY ICE MAKER Ot J98.4 OTHER DISORDERS OF LUNG 06/08/2019 NINA ANAYA APRN Ot R91.8 OTHER NONSPECIFIC ABNORMAL FINDING OF DAVID 06/08/2019 JUNIOR LASSITERRANI Ot C34. 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, LEFT B 06/08/2019 JUNIOR DORANI Ot F17.201 NICOTINE DEPENDENCE, UNSPECIFIED, IN REM 06/08/2019 JUNIOR LASSITERRANI Ot J18. 9 PNEUMONIA, UNSPECIFIED ORGANISM 06/08/2019 JUNIOR LASSITERRANI Ot J44. 1 CHRONIC OBSTRUCTIVE PULMONARY DISEASE W 06/08/2019 JUNIOR DO, RANI Roa Ot J96. 20 ACUTE AND CHR RESP FAILURE, UNSP W HYPOX 06/08/2019 JUNIOR DO, RANI Roa Ot R91. 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, UNSPECIFIED, IN REM 06/08/2019 INNA ANAYA APRN Ot J18.9 PNEUMONIA, UNSPECIFIED ORGANISM 06/08/2019 NINA ANAYA APRN Ot J44.1 CHRONIC OBSTRUCTIVE PULMONARY DISEASE W 06/08/2019 NINA ANAYA APRN Ot J96.20 ACUTE AND CHR RESP FAILURE, UNSP W HYPOX 06/08/2019 GELLENDER DO, AMANDEEP A Ot R56.9 UNSPECIFIED CONVULSIONS 06/08/2019 SIVA RESENDIZP Ot I25.10 ATHSCL HEART DISEASE OF [place] CORONARY 06/08/2019 SIVA RESENDIZ TELEVISION CABLE INSTALLER Ot I70.0 ATHEROSCLEROSIS OF [place] 06/08/2019 SIVA RESENDIZ TELEVISION CABLE INSTALLER Ot J43.9 EMPHYSEMA, UNSPECIFIED 06/08/2019 SIVA RESENDIZ TELEVISION CABLE INSTALLER Ot N28.1 CYST OF KIDNEY, ACQUIRED 06/08/2019 SIVA RESENDIZ JOCELINE Ot Z01.89 ENCOUNTER FOR OTHER SPECIFIED SPECIAL EX 06/08/2019 SIVA RESENDIZ TELEVISION CABLE INSTALLER Ot Z79.51 HEAD WAITRESS (CURRENT) USE OF INHALED STERO 06/08/2019 SIVA RESENDIZ TELEVISION CABLE INSTALLER Ot Z85.118 PERSONAL HISTORY OF MALIGNANT NEOPLASM O 06/08/2019 GELLENDER DO, AMANDEEP Miriam Ot M19.012 PRIMARY OSTEOARTHRITIS, LEFT SHOULDER 06/08/2019 GELLENDER DO, AMANDEEP Pineda Ot S49.92XA UNSP INJURY OF LEFT SHOULDER AND UPPER A 06/08/2019 GELLENDER DO, AMANDEEP Miriam Ot W19.XXXA UNSPECIFIED FALL, INITIAL ENCOUNTER 06/08/2019 GELLENDER DO, AMANDEEP Pineda Ot M47.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 06/08/2019 GELLENDER DO, AMANDEEP Pineda Ot S12.110D ANT DISPL TYPE II DENS FRACTURE, SUBS FO 06/08/2019 GELLENDER DO, AMANDEEP Miriam Ot W19.XXXD UNSPECIFIED FALL, SUBSEQUENT ENCOUNTER 06/08/2019 GELLENDER DO, AMANDEEP Pineda Ot M47.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 06/08/2019 GELLENDER DO, AMANDEEP Miriam Ot S12.110A ANTERIOR DISPLACED TYPE II DENS FRACTURE 06/08/2019 GELLENDER DO, AMANDEEP Pineda Ot W19.XXXA UNSPECIFIED FALL, INITIAL ENCOUNTER 06/08/2019 STEPHEN PRICE Ot C34.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, LEFT B 06/08/2019 STEPHEN PRICE Ot C79.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 06/08/2019 STEPHEN PRICE Ot E78.5 HYPERLIPIDEMIA, UNSPECIFIED 06/08/2019 STEPHEN PRICE Ot G40.909 EPILEPSY, UNSP, NOT INTRACTABLE, WITHOUT 06/08/2019 STEPHEN PRICE Ot J43.9 EMPHYSEMA, UNSPECIFIED 06/08/2019 STEPHEN PRICE Ot Z51.11 ENCOUNTER FOR ANTINEOPLASTIC CHEMOTHERAP 06/08/2019 STEPHEN PRICE Ot Z79.899 OTHER SENIOR CARE (CURRENT) DRUG THERAPY 06/08/2019 STEPHEN PRICE Ot Z87.891 PERSONAL HISTORY OF NICOTINE DEPENDENCE 06/08/2019 STEPHEN PRICE Ot Z92.21 PERSONAL HISTORY OF ANTINEOPLASTIC CHEMO 06/08/2019 SIVA RESENDIZ TELEVISION CABLE INSTALLER Ot M19.072 PRIMARY OSTEOARTHRITIS, LEFT ANKLE AND F 06/08/2019 SIVA RESENDIZ TELEVISION CABLE INSTALLER Ot W19.XXXA UNSPECIFIED FALL, INITIAL ENCOUNTER 06/08/2019 SIVA RESENDIZ TELEVISION CABLE INSTALLER Ot G25.5 OTHER CHOREA 06/08/2019 SIVA RESENDIZ TELEVISION CABLE INSTALLER Ot 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 MAXILLARY SINUSITIS 06/08/2019 SIVA RESENDIZ TELEVISION CABLE INSTALLER Ot R 51 HEADACHE 06/08/2019 SIVA RESENDIZ TELEVISION CABLE INSTALLER Ot W19.XXXA UNSPECIFIED FALL, INITIAL ENCOUNTER 06/09/2019 AMANDEEP GENAO DO Ot M47.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 06/09/2019 [facility] AMANDEEP LASSITER Ot S12.110A ANTERIOR DISPLACED TYPE II DENS FRACTURE 06/09/2019 [facility] AMANDEEP LASSITER Ot W19.XXXA UNSPECIFIED FALL, INITIAL ENCOUNTER 06/10/2019 STEPHEN PRICE Ot C34.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, LEFT B 06/10/2019 STEPHEN PRICE Ot C79.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 06/10/2019 STEPHEN PRICE Ot E78.5 HYPERLIPIDEMIA, UNSPECIFIED 06/10/2019 STEPHEN PRICE Ot G40.909 EPILEPSY, UNSP, NOT INTRACTABLE, WITHOUT 06/10/2019 STEPHEN PRICE Ot J43.9 EMPHYSEMA, UNSPECIFIED 06/10/2019 STEPHEN PRICE Ot Z51.11 ENCOUNTER FOR ANTINEOPLASTIC CHEMOTHERAP 06/10/2019 STEPHEN PRICE Ot Z79.899 OTHER HEAD WAITRESS (CURRENT) DRUG THERAPY 06/10/2019 STEPHEN PRICE Ot Z87.891 PERSONAL HISTORY OF NICOTINE DEPENDENCE 06/10/2019 STEPHEN PRICE Ot Z92.21 PERSONAL HISTORY OF ANTINEOPLASTIC CHEMO Procedures Code Description [place] [address] OXIMETRY 08/19/2012 63153 OXIMETRY 12/10/2013 [id number] RE SPIRATORY VENTILATION, 24- 96 CONSECUTI 03/09/2017 [id number] EX CISION OF THORAX LYMPHATIC, PERC ENDO 05/21/2017 [id number] EX TRACTION OF L LOW LUNG LOBE, PERC ENDO 05/21/[id number] MCCOY OF RIGHT MIDDLE LUNG LOBE, ENDO 07/23/2018 [id number] EX TIRPATION OF MATTER FROM RIGHT MAIN BR 07/23/2018 [id number] EX TIRPATION OF MATTER FROM LEFT MAIN BRO 07/23/2018 [id number] EX TRACTION OF RIGHT MIDDLE LUNG LOBE, EN 07/23/2018 [id number] RE PAIR SCALP SKIN, EXTERNAL APPROACH 02/18/2019 [id number] SISTANCE WITH RESPIRATORY VENTILATION, 04/04/2019 Results Test [...] Blood erythrocyte morphology finding identification NORMAL NRG Comprehensive metabolic panel - 11/20/15 07:30 Serum [...] 0.0-0.1 Whole blood basic metabolic panel - 07/15 05:45 Serum or plasma sodium measurement (moles/volume) [...] . NRG Bacterial blood culture SEE COMMEN NR Comprehensive metabolic panel - 03/09/17 16:35 Serum [...] TEXT EXTERNAL SENSITIVITY REPORTED AT 1704, 1 -18 NRG QUANTITY OF GROWTH Moderate Growth NRG FREE TEXT ENTRY 2 PLUS NORMAL MAGED NRG Bacterial sputum culture [id number] NR Bacterial susceptibility panel - 7 05:12 Gentamicin [...] - 04/06/17 08:20 Bacterial blood culture NG NRG Influenza virus A and B antigen detectio n - 04/06/17 08:40 FLU RESULT NEGATIVE FOR INFLUENZA A AND B ANTIGENS BY IA NRG Bacterial blood culture - 04/06/17 08:46 Bacterial blood culture NG NRG Complete urinalysis [...] mg/dL 0.1-1.0 Serum or plasma alkaline phosphatase mcik surement (enzymatic activity/volume) 99 U/L 40-136 Serum [...] - 05/20/17 16:35 Bacterial blood culture NG [facility] Complete blood count (CBC) with [...] in bronchial specimen by aerob e culture [id number] NRG FTX;REPORTABLE SENSITIVITY REPORTED AT 1642, NRG Mycobacterium species detection by organ ism [...] - 07/29/17 12:28 Bacterial blood culture NG NRG Serum or plasma lactate measurement (mol es/volume) - 07/29/17 14:24 Serum or plasma lactate measurement (moles/volume) 1.81 mmol/L 0.50-2.00 Bacterial blood culture - 07/29/17 14:24 Bacterial blood culture NG NRG Complete blood [...] PLUS NORMAL MAGED NRG Bacterial sputum culture [id number] [facility] Bacterial susceptibility panel - 8 11:30 Gentamicin [...] anisocytosis detection by light microscopy S LIGHT [facility] Comprehensive metabolic panel - 09/24/17 03:35 Serum [...] 95 mmol/L 98-107 Carbon dioxide 25 mmol/L -32 Serum or plasma anion gap determination (moles/volume) [...] 12:10 ANDREW RESULT POSITIVE; FUNGAL HYPHAE OBSERVED [facility] Complete blood count (CBC) with [...] BY IA NRG Bacterial blood culture - 01/26/18 13:35 Bacterial blood culture NG NRG Bacterial blood culture - 01/26/18 14:08 Bacterial blood culture NG NRG Complete blood [...] 0.0-0.1 Whole blood basic metabolic panel - 11/05/18 04:05 Serum or plasma sodium measurement (moles/volume) [...] Whole blood basic metabolic panel - 11/0 08/15 08:55 Serum or plasma sodium measurement [...] plasma alkaline phosphatase imck surement (enzymatic activity/volume) 152 U/L 40-136 Serum [...] NRG Blood erythrocyte morphology finding identification NORMAL NR Serum or plasma lithium measurement (mol es/volume) - 04/21/18 14:40 BNP level 67.2 pg/mL <100.0 Serum or plasma troponin i.cardiac measu rement (mass/volume) - 04/21/18 14:40 Serum or plasma troponin i.cardiac measurement (mass/v olume) < ng/mL <0.028 Bacterial blood culture - 04/21/18 14:40 FREE TEXT EXTERNAL POSSIBLE 2 COLONY TYPES PRESENT NR QUANTITY OF GROWTH Isolated [facility] Bacterial blood culture [id number] [facility] Influenza virus A and B antigen detectio n - 04/21/18 15:02 FLU RESULT NEGATIVE FOR INFLUENZA A AND B ANTIGENS BY IA [facility] Bacterial blood culture - 04/21/18 15:15 Bacterial blood culture NG [facility] Complete blood count (CBC) with [...] complete blood count (he mogram) panel - 04/24/18 05:23 Blood leukocytes automated [...] white blood cell (WBC) differential - 02/18/19 05:37 Blood leukocytes automated count (number/volume) 5.2 [...] culture - 06/10/18 03:42 Bacterial blood culture NG [facility] Influenza virus A and B antigen detectio n - 06/10/18 03:45 FLU RESULT NEGATIVE FOR INFLUENZA A AND B ANTIGENS BY IA [facility] Bacterial blood culture - 06/10/18 04:46 Bacterial blood culture [facility] Complete urinalysis with reflex to cultu re - 06/10/18 09:25 Urine color determination YELLOW NRG Urine clarity [...] - 07/21/18 22:35 Bacterial blood culture NG [facility] DILANTIN (PHENYTOIN) - 07/21/18 22:35 DILANTIN PHEN 16.6 % 10.0-20.0 Influenza virus A and B antigen detectio n - 07/21/18 22:40 FLU RESULT NEGATIVE FOR INFLUENZA A AND B ANTIGENS BY IA [facility] Bacterial blood culture - 07/21/18 22:51 Bacterial blood culture NG [facility] Arterial blood gas measurement - 9 23:12 [...] 8.5-10.1 Manual absolute plasma cell count - 11/16 05:40 Blood monocytes/100 leukocytes 3 % NRG [...] INFLUENZA A AND B ANTIGENS BY IA [facility] Comprehensive metabolic panel - 12/01/18 02:25 Serum [...] plasma alkaline phosphatase mick surement (enzymatic activity/volume) 196 U/L 40-136 Serum [...] complete blood count (he mogram) panel - 04/06/19 06:00 Blood leukocytes automated [...] A AND B ANTIGENS BY IA NR Complete blood count (CBC) with automate d [...] d white blood cell (WBC) differential - 06/08/19 18:10 Blood leukocytes automated count (number/volume) 9.1 10*3/uL 4.3-11.0 Blood erythrocytes automated count (number/volume) 4.00 10*6/uL 4.35-5.85 Venous blood hemoglobin measurement (mass/volume) 11.3 g/dL 13.3-17.7 Blood hematocrit (volume fraction) 35 % 40-54 Automated erythrocyte mean corpuscular volume 88 [ foz_us] 80-99 Automated erythrocyte mean corpuscular h emoglobin (mass per erythrocyte) 28 pg 25-34 Automated erythrocyte mean corpuscular h emoglobin concentration measurement (mass/volume) 32 g/dL 32-36 Automated erythrocyte distribution width ratio 14. 3 % 10.0- 14.5 Automated blood platelet count (count/volume) 394 10*3/uL 130-400 Automated blood platelet mean volume measurement 8.1 [foz_us] 7.4-10.4 Automated blood neutrophils/100 leukocytes 66 % 42-75 Automated blood lymphocytes/100 leukocytes 13 % 12-44 Blood monocytes/100 leukocytes 21 % 0-12 Automated blood eosinophils/100 leukocytes 0 % 0-10 Automated blood basophils/100 leukocytes 0 % 0-10 Blood neutrophils automated count (number/volume) 6.0 10*3 1.8-7.8 Blood lymphocytes automated count (number/volume) 1.2 10*3 1.0-4.0 Blood monocytes automated count (number/volume) 2. 0 10*3 0.0-1.0 Automated eosinophil count 0.0 10*3/uL 0 .0-0.3 Automated blood basophil count (count/volume) 0.0 10*3/uL 0.0-0.1 Arterial blood gas measurement - 0 18:10 Blood pCO2 60 mm[Hg] 35-45 Blood pO2 59 mm[Hg] 79-93 Arterial blood bicarbonate measurement (moles/volume) 35 mmol/L 23-27 Arterial blood base excess by calculation 9.9 mmol /L -2.5-2.5 Arterial blood oxygen saturation measurement 89 % 94-100 * Inhaled oxygen flow rate UNK NRG Arterial blood pH measurement with patient temperature correction 7.38 7.37-7.43 Arterial blood carbon dioxide, total measurement (mole s/volume) 37.1 mmol/L 21.0-31.0 Body site UNK NRG Assessment of wrist artery patency prior to arterial p uncture NA NRG Setting of ventilation mode NO NR G Measurement of body temperature 36.7 NRG Manual absolute plasma cell count - 05/29 18:10 Blood monocytes/100 leukocytes 26 % NRG Manual blood segmented neutrophils/100 leukocytes 63 % NRG Manual blood lymphocytes/100 leukocytes 11 % NRG Comprehensive metabolic panel - 06/08/19 18:10 Serum or plasma sodium measurement (moles/volume) 132 [...] NRG Serum or plasma glucose measurement (mass/volume) 75 mg/dL 70-105 Serum or plasma calcium measurement [...] measurement (mass/volume) 3.8 g/dL 3.2-4.5 CALCIUM CORRECTED 8.4 mg/dL 8.5-10.1 Encounters ACCT No. Visit Date/Time Discharge Status Pt. Type Provider Facility Loc./Unit Complaint [id number] 12/10/2013 15:08:00 12/10/2013 23:59: 59 CLS Outpatient DIPESH MIKE APRN [id number] 08/19/2012 13:16:00 Document Registration [id number] 06/05/2019 02:11:00 14:00:00 DIS Inpatient DILMANDER MYRNA LASSITER S [facility] 4TH COPD EXACERBATI ON [id number] 06/04/2019 10:35:00 23:59:59 CLS Outpatient STEPHEN PRICE Flavio Porter [facility] ONC [id number] 05/28/2019 11:16:00 23:59:59 CLS Outpatient SIVA RESENDIZ TELEVISION CABLE INSTALLER [facility] RAD HEADACHE,FALLS [id number] 05/25/2019 15:37:00 23:59:59 CLS Outpatient SIVA RESENDIZ TELEVISION CABLE INSTALLER [facility] RAD [id number] 05/17/2019 20:00:00 15:30:00 DIS Inpatient AMANDEEP GENAO DO [facility] 4TH COPD W EXACERBA TION [id number] 04/04/2019 07:34:00 10:15:00 DIS Inpatient AMANDEEP GENAO DO [facility] 4TH RLL PNEUMONIA, RESP DISTRESS [id number] 03/19/2019 13:03:00 23:59:59 CLS Preadmit NINA ANAYA APRN [facility] RAD CHRONIC BRONCHITIS,COPD,PNEUMONIA,LUNG MASS,ASTHMA [id number] 03/15/2019 11:52:00 23:59:59 CLS Outpatient NINA ANAYA APRN [facility] RAD CHRONIC BRONCHITIS,PNEUMONIA,LUNG MASS,ASTHMA [id number] 02/18/2019 14:30:00 16:28:00 DIS Inpatient AMANDEEP GENAO DO [facility] 4TH PNEUMONIA;WEAKN ESS [id number] 02/11/2019 13:03:00 00:01:00 DIS Outpatient STEPHEN PRICE V [facility] ONC [id number] 02/15/2019 07:55:00 23:59:59 CLS Outpatient AMANDEEP GENAO DO [facility] RAD FALL,NECK PAIN [id number] 02/03/2019 16:14:00 23:59:59 CLS Outpatient AMANDEEP GENAO DO [facility] RAD FALL [id number] 01/18/2019 13:49:00 15:24:00 DIS Emergency FAVIAN COWART [facility] ER SOA [id number] 01/11/2019 12:07:00 23:59:59 CLS Outpatient SIVA RESENDIZ TELEVISION CABLE INSTALLER [facility] CARD NON SMALL CELL LUNG CA [id number] 01/06/2019 13:33:00 23:59:59 CLS Outpatient AMANDEEP GENAO DO [facility] RAD FELL,HURT L KYLE ULDER [id number] 12/01/2018 02:02:00 05:05:00 DIS Emergency STEFAN HERNANDEZ MD [facility] ER SOB [id number] 11/25/2018 15:53:00 18:11:00 DIS Emergency FAVIAN COWART [facility] ER CONGESTION, COUGH [id number] 11/17/2018 15:42:00 23:59:59 CLS Outpatient AMANDEEP GENAO DO [facility] LAB SEIZURE [id number] 10/22/2018 13:30:00 00:01:00 DIS Outpatient STEPHEN PRICE [facility] ONC [id number] 10/05/2018 03:11:00 05:43:00 DIS Emergency STEFAN HERNANDEZ MD [facility] ER SOB [id number] 09/14/2018 08:31:00 23:59:59 CLS Outpatient HÉCTOR NINA Bustos DRY ICE MAKER [facility] RAD LUNG MASS,PNEUM ONIA [id number] 09/04/2018 18:22:00 12:14:00 DIS Inpatient AMANDEEP GENAO DO [facility] 4TH COPD EXACERBATI ON,AMS [id number] 09/04/2018 07:22:00 09:42:00 DIS Emergency MARY RIOS, STEFAN Zuniga [facility] ER FALL [id number] 08/12/2018 17:27:00 19:01:00 DIS Emergency NESTOR AVILEZ [facility] ER PAIN BEHIND LEFT EAR, T ROUBLE WALKING [id number] 07/20/2018 13:16:00 00:01:00 DIS Outpatient STEPHEN PRICE [facility] ONC [id number] 07/22/2018 00:00:00 13:50:00 DIS Inpatient AMANDEEP GENAO DO [facility] 4TH PNEUMONIA;LUNG CANCER ON CHEMO;COPD/ [id number] 07/14/2018 10:42:00 23:59:59 CLS Outpatient STEPHEN PRICE V [facility] CARD NON SMALL CELL LUNG CA [id number] 07/02/2018 14:31:00 23:59:59 CLS Outpatient RANI PACHECO DO [facility] RAD NON SMALL CELL LUNG CAN CER [id number] 06/24/2018 20:23:00 14:26:00 DIS Inpatient AMANDEEP GENAO DO [facility] 4TH RLL PNA [id number] 06/22/2018 14:51:00 23:59:59 CLS Outpatient SIVA RESENDIZP [facility] RAD [id number] 06/10/2018 04:35:00 15:30:00 DIS Inpatient AMANDEEP GENAO DO [facility] 4TH RLL PNEUMONIA C OPD EXACERBATION [id number] 05/15/2018 13:27:00 14:15:00 DIS Inpatient JAMIR ELLISON DO [facility] 4TH NEUTROPENIA,PNEUMONIA,H YPONATREMIA [id number] 05/14/2018 14:53:00 23:59:59 CLS Outpatient AMANDEEP GENAO DO [facility] RAD COUGH [id number] 05/12/2018 15:17:00 23:59:59 CLS Outpatient AMANDEEP GENAO DO [facility] RAD FELL AND HURT R IGHT SHOULDER [id number] 05/05/2018 11:59:00 23:59:59 CLS Outpatient SIVA RESENDIZP [facility] CARD NON SMALL CELL LUNG CA [id number] 04/21/2018 16:40:00 16:35:00 DIS Inpatient AMANDEEP GENAO DO [facility] 4TH COPD,EPILEPSY,L EFT LOWER LOBE PNEUM;LUNG CA [id number] 03/30/2018 13:59:00 00:01:00 DIS Outpatient DEESTEPHEN V ia [facility] ONC [id number] 03/24/2018 22:15:00 10:42:00 DIS Inpatient AMANDEEP GENAO DO [facility] 4TH SEIZURE DISORDER,GENERALIZED WEAKNESS,META LUNG CA [id number] 03/16/2018 20:46:00 11:22:00 DIS Inpatient AMANDEEP GENAO DO [facility] 4TH ORTHOSTATIC HYPOTENSION,HYPONATREMIA [id number] 03/09/2018 13:48:00 14:30:00 DIS Inpatient AMANDEEP GENAO DO Miriam [facility] 4TH WEAKNESS, C2 FR ACTURE [id number] 02/10/2018 12:15:00 23:59:59 CLS Outpatient SIVA RESENDIZ [facility] CARD NON SMALL CELL LUNG CA [id number] 01/26/2018 15:30:00 018 13:15:00 DIS Inpatient CHADWICK LASSITER AMANDEEP Miriam [facility] 4TH PNENOMONIA,LUNG CANCER [id number] 01/19/2018 16:00:00 018 23:59:59 CLS Outpatient CHADWICK LASSITER AMANDEEP Pineda [facility] RAD TRAUMA TO NECK [id number] 01/13/2018 12:15:00 23:59:59 CLS Preadmit NINA ANAYA APRN [facility] RAD PNEUMONIA,NON-S MALL CELL LUNG CANCER [id number] 01/08/2018 14:06:00 018 23:59:59 CLS Outpatient SIVA RESENDIZ [facility] RAD [id number] 12/26/2017 13:12:00 018 14:23:00 DIS Outpatient STEPHEN PRICE V [facility] ONC [id number] 12/24/2017 08:01:00 018 09:47:00 DIS Outpatient KURT MOHR MD [facility] CATARACT [id number] 12/22/2017 05:39:00 018 14:34:00 DIS Outpatient KURT MOHR MD [facility] PREOP CATARACT [id number] 12/12/2017 10:20:00 018 12:10:00 DIS Outpatient KURT MOHR MD [facility] CATARACT LEFT EYE [id number] 12/10/2017 06:22:00 018 14:11:00 DIS Outpatient KURT MOHR MD [facility] PREOP CATARACT LEFT EYE [id number] 12/04/2017 09:11:00 018 13:15:00 DIS Inpatient GELLENDER DO, AMANDEEP A [facility] 4TH COPD ACUTE EXAC ERBATION [id number] 11/14/2017 20:45:00 018 14:28:00 DIS Inpatient JAMIR ELLISON DO [facility] 4TH RLL PNEUMONIA,ORTHOSTAT IC HYPOTENSION,HX LUNG CA [id number] 10/30/2017 11:00:00 018 23:59:59 CLS Outpatient SIVA RESENDIZ [facility] CARD NON-SMALL CELL LUNG CANCER,SECONDARY CANCER OF BON [id number] 10/07/2017 12:07:00 018 23:59:59 CLS Outpatient AMANDEEP GENAO DO [facility] LAB TOENAIL FUNGUS [id number] 09/18/2017 13:18:00 018 00:01:00 DIS Outpatient STEPHEN PRICE V [facility] ONC [id number] 09/24/2017 04:46:00 018 15:52:00 DIS Inpatient AMANDEEP GENAO DO [facility] 4TH PNEUMONIA,METAS TATIC LUNG CANCER ON CHEMO,COPD [id number] 09/04/2017 11:24:00 018 23:59:59 CLS Outpatient SIVA RESENDIZ [facility] LAB NON SMALL CELL LUNG CANCER [id number] 08/28/2017 17:10:00 018 23:59:59 CLS Outpatient NINA ANAYA APRN [facility] RAD LEG PAIN,LEG SW ELLING,LUNG MASS [id number] 08/05/2017 15:56:00 018 12:55:00 DIS Inpatient AMANDEEP GENAO DO [facility] 4TH COPD ACUTE EXACERBATION;RESP DISTRESS [id number] 08/05/2017 10:11:00 018 15:17:00 DIS Emergency VANESSA GUTHRIE MD [facility] ER SOB [id number] 07/29/2017 14:37:00 018 13:31:00 DIS Inpatient CHADWICK LASSITER AMANDEEP Pineda [facility] 4TH PNEUMONIA,COPD EXACERBATION [id number] 07/28/2017 12:13:00 018 23:59:59 CLS Outpatient CHADWICK LASSITER AMANDEEP Miriam [facility] RAD COUGH R05,CONGE STION R09.81 [id number] 07/24/2017 10:27:00 018 14:30:00 DIS Outpatient CÉSAR NEGRETE DO [facility] LUNG CANCER [id number] 07/23/2017 14:46:00 018 15:11:00 DIS Outpatient CÉSAR NEGRETE DO [facility] PREOP LUNG CA [id number] 07/09/2017 08:57:00 018 14:25:00 DIS Outpatient STEPHEN PRICE [facility] RAD R93.7 ABNORMAL MRI SCAN , BONE [id number] 07/03/2017 08:40:00 018 23:59:59 CLS Outpatient STEPHEN PRICE V ia [facility] RAD R91.1 LUNG NODULE [id number] 07/02/2017 08:26:00 018 23:59:59 CLS Outpatient RANI PACHECO DO [facility] RAD ABN PET OF LUNG CA [id number] 06/17/2017 09:08:00 018 23:59:59 CLS Outpatient RANI PACHECO DO [facility] RAD LUNG NODULE,LUNG MASS,T OBACCO USER [id number] 06/03/2017 09:00:00 018 23:59:59 CLS Preadmit AMANDEEP GENAO DO [facility] RAD SPICULATED NODU LE IN LT UPPER LOBE OF LUNG [id number] 05/20/2017 16:28:00 018 14:48:00 DIS Inpatient AMANDEEP GENAO DO [facility] 4TH PNEUMONIA BILAT LL,MASS L UPPER LOBE,FATIGUE,PAST- [id number] 04/30/2017 19:42:00 018 23:27:00 DIS Emergency NOREEN CHÁVEZ DRY ICE MAKER [facility] ER NOSE BLEED [id number] 04/30/2017 15:18:00 018 18:22:00 DIS Emergency NOREEN CHÁVEZ DRY ICE MAKER [facility] ER NOSE BLEED [id number] 04/14/2017 14:15:00 018 23:59:59 CLS Preadmit NINA ANAYA DRY ICE MAKER [facility] PULM ASTHMA [id number] 04/06/2017 11:15:00 018 14:00:00 DIS Inpatient AMANDEEP GENAO DO [facility] 4TH BILAT LOWER LOB E PNA, COPD [id number] 04/03/2017 10:09:00 018 23:59:59 CLS Preadmit NINA ANAYA DRY ICE MAKER [facility] RT ASTHMA [id number] 04/03/2017 10:07:00 018 23:59:59 CLS Preadmit NINA ANAYA DRY ICE MAKER [facility] RAD TOBACCO USER [id number] 03/30/2017 07:03:00 018 12:25:00 DIS Inpatient AMANDEEP GENAO DO [facility] 4TH RESP, DISTRESS, COPD EXACERBATION [id number] 03/09/2017 18:31:00 017 14:50:00 DIS Inpatient AMANDEEP GENAO DO [facility] 4TH SEVERE SEPSIS,R EPIRATORY FAILURE,PNEUMONIA [id number] 03/05/2017 10:54:00 017 13:24:00 DIS Emergency IRAIDA PRATT MD [facility] ER SKIN ABRASIONS ON NOSE AND LEFT HAND--FALL [id number] 02/28/2017 13:26:00 017 14:45:00 DIS Inpatient AMANDEEP GENAO DO [facility] 4TH PNEUMONIA,COPD EXACERBATION [id number] 02/04/2017 15:03:00 23:59:59 CLS Outpatient AMANDEEP GENAO DO [facility] LAB SOB COPD WEIGHT LOSS [id number] 01/14/2017 12:26:00 23:59:59 CLS Outpatient AMANDEEP GENAO DO [facility] RAD FELL-HIT HEAD [id number] 12/19/2016 12:24:00 23:59:59 CLS Outpatient AMANDEEP GENAO DO [facility] RAD COPD,COUGH [id number] 09/10/2016 13:39:00 23:59:59 CLS Outpatient AMANDEEP GENAO DO [facility] LAB SEIZURE [id number] 08/20/2016 10:59:00 23:59:59 CLS Outpatient AMANDEEP GENAO DO [facility] LAB SEIZURE COPD [id number] 02/28/2016 13:20:00 23:59:59 CLS Outpatient AMANDEEP GENAO DO [facility] RAD WEIGHT LOSS [id number] 02/21/2016 09:42:00 23:59:59 CLS Outpatient AMANDEEP GENAO DO [facility] 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,BOWLING BALL GRADER D [id number] 02/19/2016 16:00:00 23:59:59 CLS Outpatient AMANDEEP GENAO DO [facility] RAD RECENT 20LB [place] GHT LOSS [id number] 12/13/2015 16:15:00 23:59:59 CLS Outpatient AMANDEEP GENAO DO [facility] LAB SEIZURE [id number] 11/20/2015 07:17:00 09:32:00 DIS Emergency MARY RIOS, STEFAN Zuniga [facility] ER SEIZURE [id number] 10/24/2015 13:47:00 15:18:00 DIS Emergency NOREEN CHÁVEZ APRN [facility] ER LEFT EAR LAC [id number] 08/10/2015 16:11:00 12:30:00 DIS Inpatient AMANDEEP GENAO DO [facility] 4TH COPD EXACERBATI ON [id number] 07/09/2015 13:22:00 23:59:59 CLS Outpatient AMANDEEP GENAO DO [facility] LAB HYPERLIPIDEMIA [id number] 06/13/2015 13:09:00 11:40:00 DIS Inpatient AMANDEEP GENAO DO [facility] 4TH COPD EXACERBATI ON HYPONATREMIA [id number] 05/30/2015 12:53:00 23:59:59 CLS Outpatient AMANDEEP GENAO DO [facility] LAB SEIZURES,HYPERLIPIDEMIA,PAIN IN L FOOT,HX OF FX [id number] 03/11/2015 16:23:00 11:36:00 DIS Inpatient AMANDEEP GENAO DO [facility] 4TH PNEUMONIA,HYPOXIA,SEIZURE,COPD EXAC [id number] 11/08/2014 12:06:00 23:59:59 CLS Outpatient AMANDEEP GENAO DO [facility] LAB [id number] 08/26/2014 11:54:00 13:42:00 DIS Emergency KARIS BONILLA [facility] ER SOA [id number] 04/26/2014 13:15:00 23:59:59 CLS Outpatient BROOKENUNUAMANDEEP SCHMIDT DO Miriam [facility] LAB SEIZURES,COPD [id number] 03/25/2014 12:57:00 014 23:59:59 CLS Outpatient CHADWICK LASSITER AMANDEEP Miriam [facility] RAD NUMBNESS TINGLI NG OF R ARM [id number] 11/16/2013 12:35:00 014 23:59:59 CLS Outpatient AMANDEEP GENAO DO [facility] LAB LAMICTAL LEVEL [id number] 11/08/2013 11:10:00 014 11:27:00 DIS Emergency JERRI RIOS, VANESSA Ritchie [facility] ER STAPLE REMOVAL [id number] 11/02/2013 01:47:00 014 03:43:00 DIS Emergency JERRI RIOS, VANESSA Ritchie [facility] ER SEIZURE [id number] 11/01/2013 16:10:00 23:59:59 CLS Outpatient AMANDEEP GENAO DO [facility] RAD LT FOOT SWELLIN G AND HAS BUMP ON 1ST METATARSAL [id number] 10/23/2013 12:37:00 23:59:59 CLS Outpatient YELITZA ANTHONY MD [facility] LAB SEIZURES-PRIMARY [id number] 09/28/2013 12:18:00 23:59:59 CLS Outpatient AMANDEEP GENAO DO [facility] LAB LEFT LEG SWELL [id number] 09/17/2013 01:40:00 03:55:00 DIS Emergency CELESTE BILLY DO [facility] ER SEIZURE-FELL [id number] 09/03/2013 12:42:00 23:59:59 CLS Outpatient AMANDEEP GENAO DO [facility] LAB SEIZURE,COPD [id number] 07/20/2013 09:49:00 23:59:59 CLS Outpatient AMANDEEP GENAO DO [facility] RAD WEIGHT LOSS, AB D PAIN [id number] 07/12/2013 16:11:00 23:59:59 CLS Outpatient AMANDEEP GENAO DO [facility] LAB LOST 10 LBS, AB D PAIN [id number] 05/25/2013 16:19:00 014 23:59:59 CLS Outpatient AMANDEEP GENAO DO [facility] RAD COUGH,BRONCHITI S [id number] 02/16/2013 13:23:00 16:25:00 DIS Emergency NOREEN CHÁVEZ DRY [employer] [facility] ER FELL HURT ANKLE,KNEE, H IP [id number] 12/23/2012 12:55:00 14:12:00 DIS Emergency NOREEN CHÁVEZ [employer] [facility] ER FALL/LEFT RIB PAIN [id number] 10/29/2012 11:00:00 23:59:59 CLS Outpatient BROOKENUNUAMANDEEP SCHMIDT DO [facility] RAD COPD [id number] 10/22/2012 16:07:00 23:59:59 CLS Outpatient CHADWICK AMANDEEP LASSITER [facility] RAD BRONCHITIS,COPD [id number] 06/08/2019 19:30:[address] Inpatient AMANDEEP GENAO DO [facility] 4TH L TIB/FIB FRACTURE [id number] 12/09/2011 15:35:00 Document Registration [id number] 10/15/2011 11:10:00 Document Registration [id number] 07/23/2011 23:37:00 Document Registration [id number] 05/18/2011 14:31:00 Document Registration [id number] 02/15/2011 13:07:00 Document Registration [id number] 01/28/2011 12:37:00 Document Registration [id number] 06/23/2010 19:15:00 Document Registration [id number] 05/08/2010 14:15:00 Document Registration [id number] 02/14/2010 11:40:00 Document Registration [id number] 12/02/2009 12:42:00 Document Registration
[2019-06-10 23:30] VITALS: BP 137/79
--- NOTE | 2019-06-11 00:40 | NUR ---
assumed care at this time, report received from TAE Myles. Pt in bed resting at this time, voices no complains. Agree with previous assessment.
[2019-06-11] MEDS: carBAMazepine 200 MG (TEGretol) TAB PO SCH ×2 (03:13→09:13)
[2019-06-11] MEDS ORDERED: ALPRAZolam 0.25 MG (XANAX) TAB ONE (03:40)
--- NOTE | 2019-06-11 03:40 | NUR ---
DR GENAO CALLED REGARDING PT PAIN, NEW ORDERS RECEIVED, SEE ORDER HISTORY
[2019-06-11] MEDS ORDERED: ALPRAZolam 0.25 MG (XANAX) TAB PO PRN (03:45)
[2019-06-11] MEDS: ACETAMINOPHEN 500 MG TAB (TYLENOL) PO PRN (07:22)
--- NOTE | 2019-06-11 07:45 | Progress Note ---
Subjective Time Seen by a Provider: 07:40 Subjective/Events-last exam Patient to be discharged today. Patient excited to go home. Patient does not know if he wants home health Objective Exam Vital Signs Date Time Temp Pulse Resp B/P (MAP) Pulse Ox O2 Delivery O2 Flow Rate FiO2 06/10/19 23:30 36.8 75 18 137/79 (98) 96 High Flow N/C 4.00 06/10/19 20:30 96 High Flow N/C 4.00 06/10/19 19:40 95 High Flow N/C 4.00 06/10/19 19:36 77 Room Air 06/10/19 16:21 96 Nasal Cannula 4.00 06/10/19 16:00 37.2 83 18 126/74 (91) 95 Nasal Cannula 4.00 06/10/19 11:06 97 Nasal Cannula 4.00 06/10/19 11:02 93 Nasal Cannula 4.00 06/10/19 08:30 Nasal Cannula 4.00 06/10/19 07:48 37.1 85 22 143/83 (103) 94 Nasal Cannula 4.00 I & O 06/11/19 07:00 Intake Total 2150 ml Output Total 2450 ml Balance -300 ml Capillary Refill : Less Than 3 SecondsLess Than 3 Seconds General Appearance: No Apparent Distress, WD/WN HEENT: Normal ENT Inspection Neck: Full Range of Motion, Normal Inspection Respiratory: No Accessory Muscle Use, No Respiratory Distress, Decreased Breath Sounds Cardiovascular: Regular Rate, Rhythm, No Murmur Gastrointestinal: non tender, soft Assessment/Plan Assessment/Plan Assess & Plan/Chief Complaint Left tib-fib fracture. COPD. Seizures. Lung cancer. Patient plans on going home and not care home. . 06/11/2019. Left tib-fib fracture. Lung cancer. COPD. Seizures. Patient resting comfortably this morning. Patient excited to go home Clinical Quality Measures Admission Status Admission Dx Left hip/fib fracture. COPD. Lung cancer. Seizures. Hyperlipidemia. Hypertension. Patient high risk for surgery DVT/VTE Risk/Contraindication: Risk Factor Score Per Nursin RFS Level Per Nursing on Admit: 4+=Very High Contraindications-Mechi: Other *list below* AMANDEEP GENAO DO Jun 11, 2019 07:45
--- NOTE | 2019-06-11 07:55 | Physical Therapy Progress Note ---
Therapy Progress Note Patient dismissing to home on this date per report. LAVON LAMAS PT Jun 11, 2019 07:55
[2019-06-11 08:00] VITALS: BP 138/84
[2019-06-11] MEDS: ENOXAPARIN 40 MG/0.4 ML (LOVENOX) SYR SC SCH (09:12)
[2019-06-11] MEDS: amLODIPine 5 MG (NORVASC) TAB PO SCH (09:13)
[2019-06-11] MEDS: GABAPENTIN 600 MG (NEURONTIN) TAB PO SCH (09:13)
[2019-06-11] MEDS: lamoTRIgine 25 MG (LaMICtal) TAB PO SCH (09:13)
[2019-06-11] MEDS: PHENYTOIN 100 MG (DILANTIN) CAP PO SCH (09:13)
[2019-06-11] MEDS: CEFDINIR 300 MG (OMNICEF) CAP PO SCH (09:13)
[2019-06-11] MEDS: RT-ADVAIR HFA 115/21 MCG PER PUFF IH SCH (11:22)
[2019-06-11] MEDS: RT-ALBUTEROL/IPRATROPIUM 3 ML (DUONEB) VIAL INH SCH ×2 (11:22→11:52)
--- NOTE | 2019-06-11 12:26 | Physician Query Clarification ---
"Physician Query-General Query to Physician: The medical record reflects the following clinical findings, treatment, and risk factors. Please clarify and document your clinical opinion in the progress notes and discharge summary including the definitive and/or presumptive diagnosis, (suspected or probable), related to the above clinical findings. 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 Question: What condition best reflects the above clinical scenario? Please document response in the Progress notes or Discharge Summary. 1. Pathological Fracture of the Left Tib/Fib 2. Left tib/ fib fracture (as currently documented) 3. Other , with explanation of the clinical findings 4. Clinically undetermined, no explanation for the clinical findings Please remember a lack of response to the above will prompt a phone page by CDI/coding staff In responding to this query, please exercise your independent professional judgment. The purpose of this communication is to more accurately reflect the complexity of your patients condition. The fact that a question is asked does not imply that any particular answer is desired or expected. Thank you for timely response to this clarification. Pilar Santiago, MSN, RN RN Specialist-Clinical Doc Improvement t: [phone] | f: [phone] PHYSICIAN RESPONSE: Based on the clinical findings in the record, please respond to the query above on this document as an addendum. Physician Response: Physician Response Number 2 is the answer. Fracture due to fall and trauma If you have questions please contact: Marble Carver: Ext: Thank you for your time and cooperation. Clinical Hemp Fiber Taker Off/Marble Carver This is a permanent part of the medical record PILAR SANTIAGO Jun 11, 2019 12:26 AMANDEEP GENAO DO Jun 14, 2019 07:43"
[2019-06-11 14:23] VITALS: BP 138/84
--- NOTE | 2019-06-11 15:00 | Occ Therapy Progress Note ---
Therapy Progress Note Pt to discharge to home today. Discharge OT services. JAGRUTI PEREZ Jun 11, 2019 15:00
--- NOTE | 2019-06-11 15:40 | NUR ---
Pt insists on going home and showcase maker trying to obtain physician ordered equipment. We were able to obtain wheelchair but not bedside commode or hospital bed. Pt was denied hospital bed by our local DME as states that his diagnosis of fractured tibia/fibula doesn't qualify him Unfortunately pt has multiple conditions as he is on 4 liters of oxygen due to severe COPD and also has non-small cell lung cancer with mets to bone. In addition he has a seizure disorder and experiencing many spastic movements.Due to the complexity of his condition his caregivers who are willing to provide him 24 hour care are asking for a hospital bed as feel he requires an adjustable bed to aid in transfers as he is non-wt bearing in his left leg and currently is a 2 person transfer. He requires an elevated head rest due to his difficulty breathing both due to his severe COPD and lung cancer. Will contact DME for possible approval of hospital bed.
--- NOTE | 2019-06-11 16:29 | NUR ---
Pt still needs Bedside commode and provided family funds from [employer] fund to purchase one.Sill waiting on the hospital bed approval. Provided pt a shower chair to assist family in pt's care. [facility].
--- NOTE | 2019-06-14 07:51 | Clinic Account Progress/Dx ---
Clinic Account Progress/Dx DIAGNOSIS: Time Seen by Provider: 07:49 Left distal tib-fib fracture. Anemia. Hyponatremia. Seizure disorder. COPD. Metastatic lung cancer. Hypertension. Hyperlipidemia AMANDEEP GENAO DO Jun 14, 2019 07:51
== END 2019-06-11 14:23 | disposition home or self-care (01) ==
LOC: EDUNIT# 18:26 → ER 18:28 → 4TH 19:30
PROVIDERS: ADMIT Family Medicine; ATTEND Family Medicine
DX: S82.302A Unspecified fracture of lower end of left tibia, initial encounter for closed fracture (principal); S82.832A Other fracture of upper and lower end of left fibula, initial encounter for closed fracture; C78.00 Secondary malignant neoplasm of unspecified lung; J30.9 Allergic rhinitis, unspecified; I10 Essential (primary) hypertension; E78.1 Pure hyperglyceridemia; E78.00 Pure hypercholesterolemia, unspecified; E78.5 Hyperlipidemia, unspecified; G62.9 Polyneuropathy, unspecified; G40.909 Epilepsy, unspecified, not intractable, without status epilepticus; M19.90 Unspecified osteoarthritis, unspecified site; J44.9 Chronic obstructive pulmonary disease, unspecified; F17.210 Nicotine dependence, cigarettes, uncomplicated; Z85.830 Personal history of malignant neoplasm of bone; Z88.6 Allergy status to analgesic agent; Z79.899 Other long term (current) drug therapy; Z79.891 Long term (current) use of opiate analgesic; Z92.21 Personal history of antineoplastic chemotherapy; Z83.3 Family history of diabetes mellitus
CPT/HCPCS: 27752; 29515; 36415; 73590; 80053; 82805; 85007; 85027; 94640; 94760; G0378

== ENCOUNTER 2019-06-21 05:36 | Inpatient (IN) | payer MEDICARE, MEDICAID ==
[~2019-06-21] VITALS: Ht 182.8 cm; Wt 76.9 kg
[2019-06-21] VITALS (7 sets, daily range): BP systolic 147–183; BP diastolic 81–98
--- OUTSIDE RECORDS SUMMARY | 2019-06-21 05:43 | XMS REPORT | Clinical Summary ---
Author Author [facility] Organization [facility] Address Unknown Phone Unavailable Care Team Providers Care Casket Inspector Name Role Phone Efra Valentino MD Unavailable Unavailable Source Comments Some departments are not documenting in the electronic medical record. If you d o not see the information that you expected, contact Release of Information in [facility] [employer] Information Management department at [phone] for further assistan ce in locating additional records.[facility] Allergies Comments Active Allergy Reactions Severity [...]
[2019-06-21] MEDS ORDERED: RT-ALBUTEROL SULF 2.5 MG/3 ML PRE-MIX VIAL INH STA (05:48)
[2019-06-21] MEDS ORDERED: RT-ALBUTEROL/IPRATROPIUM 3 ML (DUONEB) VIAL INH ONE (06:00)
--- OUTSIDE RECORDS SUMMARY | 2019-06-21 06:00 | XMS REPORT | Continuity of Care Document ---
Author Organization Unknown Address Unknown Phone Unavailable Allergies Active Description Code Type Severity Reaction Onset Reported/Identified Relationship to Patient Clinical Status Yes AMOXILLEN AMOXILLEN Mild N/A 07/17/2008 Yes Penicillins [id number] Drug Aller gy Mild N/A 08/02/2008 Yes aspirin Drug Allergy N/A N/A 12/10/2013 Yes aspirin [id number] Drug Allergy Mild DOES NOT WORK W 10/05/2018 Yes ibuprofen [id number] Drug Allergy Mild N/A 10/05/2018 Medications There [...] STEPHEN PRICE Ot J43.9 EMPHYSEMA, UNSPECIFIED 02/27/1422 SETPHEN PRICE Ot Z51.11 ENCOUNTER FOR ANTINEOPLASTIC CHEMOTHERAP 02/27/1422 STEPHEN PRICE Ot Z79.899 OTHER HALF-WAY (CURRENT) DRUG THERAPY 02/27/1422 STEPHEN PRICE Ot [...] 09/17/2013 MARIAJOSE LASSITER CELESTE Erma Ot V06.1 [id number], COMBINED [ 11/02/2013 VANESSA GUTHRIE MD Ot [...] Pineda Ot 825.25 04/26/2014 GELLENDER DO, AMANDEEP Pinead Ot E928.9 04/26/2014 GELLENDER DO, AMANDEEP Pineda [...] Marie Ot 780.3 9 08/26/2014 GELLENDER DO, AAMNDEEP [...] Pineda Ot 783.21 11/10/2014 GELLENDER DO, AMANDEEP Pinead Ot 789.00 11/10/2014 GELLENDER DO, AMANDEEP Pineda [...] 10/24/2015 NOREEN CHÁVEZ APRN Ot Z79.899 OTHER HALF-WAY (CURRENT) DRUG THERAPY 10/25/2015 NOREEN CHÁVEZ APRN Ot F17.210 NICOTINE DEPENDENCE, CIGARETTES, UNCOMPL 10/25/2015 CHÁVEZ, PETER J LEAN SIX SIGMA BLACK BELT Ot G40.909 EPILEPSY, UNSP, NOT INTRACTABLE, WITHOUT 10/25/2015 NOREEN CHÁVEZ LEAN SIX SIGMA BLACK BELT Ot M47.892 OTHER SPONDYLOSIS, CERVICAL REGION 10/25/2015 NOREEN CHÁVEZ LEAN SIX SIGMA BLACK BELT Ot R42 DIZZINESS AND GIDDINESS 10/25/2015 NOREEN CHÁVEZ LEAN SIX SIGMA BLACK BELT Ot S01.312A LACERATION WITHOUT FOREIGN BODY OF LEFT 10/25/2015 NOREEN CHÁVEZ LEAN SIX SIGMA BLACK BELT Ot W01.0XXA FALL SAME LEV FROM SLIP/TRIP W/O STRIKE 10/25/2015 NOREEN CHÁVEZ LEAN SIX SIGMA BLACK BELT Ot Y92.[address] IN UNSP NON-INSTITUT (PRIVATE 10/25/2015 NOREEN CHÁVEZ LEAN SIX SIGMA BLACK BELT Ot Y99 .8 OTHER EXTERNAL CAUSE STATUS 10/25/2015 NOREEN CHÁVEZ LEAN SIX SIGMA BLACK BELT Ot Z23 ENCOUNTER FOR IMMUNIZATION 10/25/2015 NOREEN CHÁVEZ APRN Ot Z79.899 OTHER HALF-WAY (CURRENT) DRUG THERAPY 11/01/2015 Ot 272.4 HYPE RLIPIDEMIA NEC/NOS 11/01/2015 Ot 496 [facility] AI RWAY OBSTRUCT NEC 11/01/2015 Ot 780.39 OTH ER CONVULSIONS 11/01/2015 Ot 780.39 OT ER CONVULSIONS 11/01/2015 Ot 272.4 HYPE RLIPIDEMIA NEC/NOS 11/01/2015 Ot 780.39 OTH ER CONVULSIONS 11/01/2015 Ot 496 [facility] AI RWAY OBSTRUCT NEC 11/01/2015 Ot 786.2 COUGH 11/01/2015 Ot 496 [facility] AI RWAY OBSTRUCT NEC 11/01/2015 Ot 786.2 COUGH 11/01/2015 Ot 272.4 HYPE RLIPIDEMIA NEC/NOS 11/01/2015 Ot 780.39 OTH ER CONVULSIONS 11/01/2015 Ot 780.39 OTH ER CONVULSIONS 11/01/2015 Ot 272.4 HYPE RLIPIDEMIA NEC/NOS 11/01/2015 Ot 496 [facility] AI RWAY OBSTRUCT NEC 11/01/2015 Ot [...] UNSP, NOT INTRACTABLE, WITHOUT 11/26/2015 MARY RIOS, STFEAN Zuniga Ot R27.0 ATAXIA, UNSPECIFIED 11/26/2015 STEFAN [...] 783.21 LOSS OF WEIGHT 02/21/2016 GELLENDER DO, AMANEDEP Pineda Ot 496 [facility] [employer] OBSTRUCT NEC [...] E78.00 PURE HYPERCHOLESTEROLEMIA, UNSPECIFIED 04/02/2017 GELLENDER DO, MAANDEEP Pineda Ot E78.5 HYPERLIPIDEMIA, UNSPECIFIED 04/02/2017 GELLENDER [...] AMANDEEP Pineda Ot Z91.19 PATIENT'S NONCOMPLIANCE W [facility] MEDICAL TR 04/08/2017 GELLENDER DO, AMANDEEP [...] GELLENDER DOAMANDEEP Ot Z91.19 PATIENT'S NONCOMPLIANCE W [facility] TR 04/30/2017 NOREEN CHÁVEZ APRN [...] ENCOUNTER 04/30/2017 NOREEN CHÁVEZ APRN Ot Z79.52 OCCUPATIONAL ANALYST (CURRENT) USE OF SYSTEMIC STER 04/30/2017 NOREEN [...] EPISTAXIS 04/30/2017 NOREEN CHÁVEZ APRN Ot Z79.52 HALF-WAY (CURRENT) USE OF SYSTEMIC STER 04/30/2017 NOREEN [...] ENCOUNTER 05/02/2017 NOREEN CHÁVEZ APRN Ot Z79.52 HALF-WAY (CURRENT) USE OF SYSTEMIC STER 05/02/2017 NOREEN CHÁVEZ APRN Ot Z87.891 PERSONAL HISTORY OF NICOTINE DEPENDENCE 05/02/2017 NOREEN CHÁVEZ APRN Ot Z88 .6 ALLERGY STATUS TO ANALGESIC AGENT STATUS 05/02/2017 NOREEN CHÁVEZ APRN Ot Z99.81 DEPENDENCE ON SUPPLEMENTAL OXYGEN 05/02/2017 NOREEN CHÁVEZ APRN Ot E78.00 PURE HYPERCHOLESTEROLEMIA, UNSPECIFIED 05/02/2017 NROEEN CHÁVEZ APRN Ot G40.909 EPILEPSY, UNSP, NOT INTRACTABLE, WITHOUT 05/02/2017 NOREEN CHÁVEZ APRN Ot I10 ESSENTIAL (PRIMARY) HYPERTENSION 05/02/2017 NOREEN CHÁVEZ APRN Ot J44 .9 CHRONIC OBSTRUCTIVE PULMONARY DISEASE, U 05/02/2017 NOREEN CHÁVEZ APRN Ot R04 .0 EPISTAXIS 05/02/2017 NOREEN CHÁVEZ APRN Ot Z79.52 HALF-WAY (CURRENT) USE OF SYSTEMIC STER 05/02/2017 NOREEN [...] NODULE 07/09/2017 STEPHEN PRICE Ot Z79.899 OTHER OCCUPATIONAL ANALYST (CURRENT) DRUG THERAPY 07/09/2017 STEPHEN PRICE Ot [...] NODULE 07/09/2017 STEPHEN PRICE Ot Z79.899 OTHER OCCUPATIONAL ANALYST (CURRENT) DRUG THERAPY 07/09/2017 STEPHEN PRICE Ot [...] 07/15/2017 STEPHEN PRICE N Ot Z79.899 OTHER HALF-WAY (CURRENT) DRUG THERAPY 07/15/2017 DEESTEPHEN PATRICIO N [...] 07/18/2017 STEPHEN PRICE N Ot Z79.899 OTHER OCCUPATIONAL ANALYST (CURRENT) DRUG THERAPY 07/18/2017 STEPHEN PRICE N [...] 07/24/2017 CÉSAR NEGRETE DO Ot Z79.899 OTHER HALF-WAY (CURRENT) DRUG THERAPY 07/24/2017 CÉSAR NEGRETE DO [...] 07/25/2017 CÉSAR NEGRETE DO Ot Z79.899 OTHER OCCUPATIONAL ANALYST (CURRENT) DRUG THERAPY 07/25/2017 CÉSAR NEGRETE DO [...] NODULE 07/28/2017 STEPHEN PRICE Ot Z79.899 OTHER HALF-WAY (CURRENT) DRUG THERAPY 07/28/2017 STEPHEN PRICE Ot [...] NODULE 07/29/2017 STEPHEN PRICE Ot Z79.899 OTHER HALF-WAY (CURRENT) DRUG THERAPY 07/29/2017 STEPHEN PRICE Ot Z87.891 PERSONAL HISTORY OF NICOTINE DEPENDENCE 08/01/2017 STEPHEN PRICE Ot 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 08/01/2017 STEPHEN PRICE Ot R91.1 SOLITARY PULMONARY NODULE 08/01/2017 STEPHEN PRICE Ot Z87.891 PERSONAL HISTORY OF NICOTINE DEPENDENCE 08/01/2017 [facility] AMAN[facility]EP Pineda Ot C34.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 08/01/2017 [facility] , AMANDEEP Pineda Ot E78.00 PURE HYPERCHOLESTEROLEMIA, UNSPECIFIED 08/01/2017 [facility] , AMANDEEP Pineda Ot G14 POSTPOLIO SYNDROME 08/01/2017 [facility] G40.909 EPILEPSY, UNSP, NOT INTRACTABLE, WITHOUT 08/01/2017 [facility] AM[facility] LASSITER Ot G47.30 SLEEP APNEA, UNSPECIFIED 08/01/2017 [facility] AMANDEEP LASSITER Ot I10 ESSENTIAL (PRIMARY) HYPERTENSION 08/01/2017 [facility] AMANDEEP LASSITER Ot J18.9 PNEUMONIA, UNSPECIFIED ORGANISM 08/01/2017 AMANDEEP GENAO DO Ot J44.0 CHRONIC OBSTRUCTIVE PULMON DISEASE W AC[facility] 08/01/2017 [facility] AMANDEEP LASSITER Ot J44.1 CHRONIC OBSTRUCTIVE PULMONARY DISEASE W 08/01/2017 [facility] J96.21 ACUTE AND CHRONIC RESPIRATORY FAILURE [place] 08/01/2017 [facility] AMANDEEP LASSITER Ot R09.02 HYPOXEMIA 08/01/2017 [facility] AMANDEEP LASSITER Ot Z87.891 PERSONAL HISTORY OF [...] DISTRESS 08/05/2017 VANESSA GUTHRIE MD Ot Z79.51 HALF-WAY (CURRENT) USE OF INHALED STERO 08/05/2017 VANESSA [...] C34.90 MALIGNANT NEOPLASM OF UNSP PART OF [email or web address] 08/06/2017 AMANDEEP GENAO DO Ot E78.00 PURE [...] C34.90 MALIGNANT NEOPLASM OF UNSP PART OF [facility] [email or web address]] 08/07/2017 AMANDEEP GENAO DO Ot E78.00 PURE [...] DEPENDENCE ON SUPPLEMENTAL OXYGEN 08/29/2017 NINA ANAYA LEAN SIX SIGMA BLACK BELT Ot M79.604 PAIN IN RIGHT LEG 08/29/2017 HÉCTOR NINA Bustos LEAN SIX SIGMA BLACK BELT Ot M79.605 PAIN IN LEFT LEG 08/29/2017 IRMA ANAYAINE Juli LEAN SIX SIGMA BLACK BELT Ot M79.89 OTHER SPECIFIED SOFT TISSUE DISORDERS 08/29/2017 IRMA ANAYAINE E LEAN SIX SIGMA BLACK BELT Ot R91.8 OTHER NONSPECIFIC ABNORMAL FINDING OF DAVID 08/29/2017 NINA ANAYA LEAN SIX SIGMA BLACK BELT Ot M79.604 PAIN IN RIGHT LEG 08/29/2017 NINA ANAYA LEAN SIX SIGMA BLACK BELT Ot M79.605 PAIN IN LEFT LEG 08/29/2017 HÉCTORNINA TATUM LEAN SIX SIGMA BLACK BELT Ot M79.89 OTHER SPECIFIED SOFT TISSUE DISORDERS 08/29/2017 NINA ANAYA LEAN SIX SIGMA BLACK BELT Ot R91.8 OTHER NONSPECIFIC ABNORMAL FINDING OF DAVID 09/08/2017 RESENDIZSIVA S ENGLISH TEACHER Ot C34.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, LEFT B 09/08/2017 RESENDIZSIVA Rodriguez S ENGLISH TEACHER Ot C79.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 09/10/2017 RESENDIZ HILBRENDA S ENGLISH TEACHER Ot C34.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, LEFT B 09/10/2017 RESENDIZSIVA S ENGLISH TEACHER Ot C79.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 09/10/2017 NINA ANAYA LEAN SIX SIGMA BLACK BELT Ot M79.604 PAIN IN RIGHT LEG 09/10/2017 NINA ANAYA LEAN SIX SIGMA BLACK BELT Ot M79.605 PAIN IN LEFT LEG 09/10/2017 NINA ANAYA LEAN SIX SIGMA BLACK BELT Ot M79.89 OTHER SPECIFIED SOFT TISSUE DISORDERS 09/10/2017 NINA ANAYA LEAN SIX SIGMA BLACK BELT Ot R91.8 OTHER NONSPECIFIC ABNORMAL FINDING OF DAVID 09/11/2017 STEPHEN PRICE Ot E78.5 HYPERLIPIDEMIA, UNSPECIFIED 09/11/2017 STEPHEN PRICE Ot G40.909 EPILEPSY, UNSP, NOT INTRACTABLE, WITHOUT 09/11/2017 STEPHEN PRICE N Ot J43.9 EMPHYSEMA, UNSPECIFIED 09/11/2017 STEPHEN PRICE N Ot M89.9 DISORDER OF BONE, UNSPECIFIED 09/11/2017 STEPHEN PRICE Ot R91.1 SOLITARY PULMONARY NODULE 09/11/2017 STEPHEN PRICE Ot Z79.899 OTHER OCCUPATIONAL ANALYST (CURRENT) DRUG THERAPY 09/11/2017 STEPHEN PRICE Ot Z87.891 PERSONAL HISTORY OF NICOTINE DEPENDENCE 09/15/2017 STEPHEN PRICE Ot E78.5 HYPERLIPIDEMIA, UNSPECIFIED 09/15/2017 STEPHEN PRICE Ot G40.909 EPILEPSY, UNSP, NOT INTRACTABLE, WITHOUT 09/15/2017 STEPHEN PRICE Ot J43.9 EMPHYSEMA, UNSPECIFIED 09/15/2017 STEPHEN PRICE Ot M89.9 DISORDER OF BONE, UNSPECIFIED 09/15/2017 STEPHEN PRICE Ot R91.1 SOLITARY PULMONARY NODULE 09/15/2017 STEPHEN PRICE Ot Z79.899 OTHER HALF-WAY (CURRENT) DRUG THERAPY 09/15/2017 STEPHEN PRICE Ot Z87.891 PERSONAL HISTORY OF NICOTINE DEPENDENCE 09/17/2017 SIVA RESENDIZ ENGLISH TEACHER Ot C34.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, LEFT B 09/17/2017 SIVA RESENDIZ ENGLISH TEACHER Ot C79.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 [...] GELLENDER DO, AMANDEEP Pineda Ot Z79.899 OTHER HALF-WAY (CURRENT) DRUG THERAPY 09/24/2017 GELLENDER DO, AMANDEEP [...] GELLENDER DO, AMANDEEP Pineda Ot Z79.899 OTHER HALF-WAY (CURRENT) DRUG THERAPY 09/25/2017 GELLENDER DO, AMANDEEP [...] GELLENDER DO, AMANDEEP Pineda Ot Z79.899 OTHER HALF-WAY (CURRENT) DRUG THERAPY 09/26/2017 GELLENDER DO, AMANDEEP [...] SEASONAL ALLERGIC RHINITIS 09/26/2017 GELLENDER DO, AMANDEEP iPneda Ot J43.9 EMPHYSEMA, UNSPECIFIED 09/26/2017 GELLENDER DO, AMANDEEP Pineda Ot M19.91 PRIMARY OSTEOARTHRITIS, UNSPECIFIED SITE 09/26/2017 GELLENDER DO, AMANDEEP Pineda Ot Z79.899 OTHER OCCUPATIONAL ANALYST (CURRENT) DRUG THERAPY 09/26/2017 GELLENDER DO, AMANDEEP [...] GELLENDER DO, AMANDEEP Pineda Ot Z79.899 OTHER OCCUPATIONAL ANALYST (CURRENT) DRUG THERAPY 09/26/2017 GELLENDER DO, AMANDEEP [...] GELLENDER DO, AMANDEEP Pineda Ot Z79.899 OTHER OCCUPATIONAL ANALYST (CURRENT) DRUG THERAPY 09/26/2017 GELLENDER DO, AMANDEEP [...] GELLENDER DO, AMANDEEP Pineda Ot Z79.899 OTHER HALF-WAY (CURRENT) DRUG THERAPY 09/26/2017 GELLENDER DO, AMANDEEP [...] GELLENDER DO, AMANDEEP Pineda Ot Z79.899 OTHER HALF-WAY (CURRENT) DRUG THERAPY 09/27/2017 GELLENDER DO, AMANDEEP [...] GELLENDER DO, AMANDEEP Pineda Ot Z79.899 OTHER HALF-WAY (CURRENT) DRUG THERAPY 09/28/2017 GELLENDER DO, AMANDEEP [...] GELLENDER DO, AMANDEEP Pineda Ot Z79.899 OTHER OCCUPATIONAL ANALYST (CURRENT) DRUG THERAPY 09/28/2017 GELLENDER DO, AMANDEEP [...] 10/01/2017 DEE, BOBAN N Ot Z79.899 OTHER HALF-WAY (CURRENT) DRUG THERAPY 10/01/2017 DEE, BOBAN N [...] 10/02/2017 DEE, BOBAN N Ot Z79.899 OTHER OCCUPATIONAL ANALYST (CURRENT) DRUG THERAPY 10/02/2017 DEE, BOBAN N [...] 10/07/2017 DEE, SABASAN N Ot Z79.899 OTHER HALF-WAY (CURRENT) DRUG THERAPY 10/07/2017 DEE STEPHEN N [...] NODULE 10/10/2017 DEESTEPHEN N Ot Z79.899 OTHER OCCUPATIONAL ANALYST (CURRENT) DRUG THERAPY 10/10/2017 DEESTEPHEN N Ot [...] CHEMOTHERAP 10/13/2017 DEESABASAN N Ot Z79.899 OTHER OCCUPATIONAL ANALYST (CURRENT) DRUG THERAPY 10/13/2017 DEESABASAN N Ot [...] SCOT LASSITER JAMIR Ot Z79.89 9 OTHER HALF-WAY (CURRENT) DRUG THERAPY 11/17/2017 SCOT LASSITER JAMIR [...] HYPERTENSION 12/12/2017 KURT MOHR MD Ot Z79.52 HALF-WAY (CURRENT) USE OF SYSTEMIC STER 12/12/2017 KURT MOHR MD Ot Z79.899 OTHER OCCUPATIONAL ANALYST (CURRENT) DRUG THERAPY 12/12/2017 KURT MOHR MD Ot Z87.891 PERSONAL HISTORY OF NICOTINE DEPENDENCE 12/16/2017 KURT MOHR MD Ot C34.90 MALIGNANT NEOPLASM OF UNSP [facility] 12/16/2017 KURT MOHR MD Ot H25.12 AGE-RELATED NUCLEAR CATARACT, LEFT EYE 12/16/2017 KURT MOHR MD Ot I10 ESSENTIAL (PRIMARY) HYPERTENSION 12/16/2017 KURT MOHR MD Ot Z79.52 HALF-WAY (CURRENT) USE OF SYSTEMIC STER 12/16/2017 KURT MOHR MD Ot Z79.899 OTHER OCCUPATIONAL ANALYST (CURRENT) DRUG THERAPY 12/16/2017 ONUR RIOS, KURT [...] 12/22/2017 STEPHEN PRICE N Ot Z79.899 OTHER HALF-WAY (CURRENT) DRUG THERAPY 12/22/2017 STEPHEN PRICE N [...] 12/24/2017 KURT MOHR MD Ot Z79.899 OTHER HALF-WAY (CURRENT) DRUG THERAPY 12/25/2017 KURT MOHR MD [...] ONUR RIOS, KURT Newton Ot Z79.899 OTHER OCCUPATIONAL ANALYST (CURRENT) DRUG THERAPY 12/25/2017 KURT MOHR MD [...] ONUR RIOS, KURT Newton Ot Z79.899 OTHER OCCUPATIONAL ANALYST (CURRENT) DRUG THERAPY 12/30/2017 KURT MOHR MD [...] ONUR RIOS, KURT L Ot Z79.899 OTHER OCCUPATIONAL ANALYST (CURRENT) DRUG THERAPY 12/31/2017 DEESTEPHEN PATRICIO N [...] 12/31/2017 DEESTEPHEN PATRICIO N Ot Z79.899 OTHER OCCUPATIONAL ANALYST (CURRENT) DRUG THERAPY 12/31/2017 DEE BOBAN N [...] 01/08/2018 DEE, BOBAN N Ot Z79.899 OTHER HALF-WAY (CURRENT) DRUG THERAPY 01/08/2018 DEE BOBAN N Ot Z87.891 PERSONAL HISTORY OF NICOTINE DEPENDENCE 01/09/2018 SIVA RESENDIZ ENGLISH TEACHER Ot C34.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, LEFT B 01/22/2018 SIVA RESENDIZ ENGLISH TEACHER Ot C34.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, [...] UNSPECIFIED 01/29/2018 STEPHEN PRICE Ot Z79.899 OTHER OCCUPATIONAL ANALYST (CURRENT) DRUG THERAPY 01/29/2018 STEPHEN PRICE Ot [...] UNSPECIFIED 02/17/2018 STEPHEN PRICE Ot Z79.899 OTHER HALF-WAY (CURRENT) DRUG THERAPY 02/17/2018 STEPHEN PRICE Ot [...] AMANDEEP Pineda Ot G14 POSTPOLIO SYNDROME 03/12/2018 JSOEDER DO, AMANDEEP Pineda Ot G40.909 EPILEPSY, UNSP, [...] GELLENDER DO, AMANDEEP Pineda Ot Z79.899 OTHER OCCUPATIONAL ANALYST (CURRENT) DRUG THERAPY 03/18/2018 GELLENDER DO, AMANDEEP [...] 03/19/2018 DEESTEPHEN PATRICIO Flavio Ot Z79.899 OTHER HALF-WAY (CURRENT) DRUG THERAPY 03/19/2018 DEESTEPHEN PATRICIO Flavio [...] GELLENDER DO, AMANDEEP Pineda Ot Z79.899 OTHER OCCUPATIONAL ANALYST (CURRENT) DRUG THERAPY 03/26/2018 GELLENDER DO, AMANDEEP [...] R47.81 SLURRED SPEECH 03/26/2018 GELLENDER DO, AMANDEEP Pindea Ot R53.1 WEAKNESS 03/26/2018 GELLENDER DO, AMANDEEP Pineda Ot S12.9XXD FRACTURE OF NECK, UNSPECIFIED, SUBSEQUEN 03/26/2018 GELLENDER DO, AMANDEEP Pineda Ot Z79.899 OTHER OCCUPATIONAL ANALYST (CURRENT) DRUG THERAPY 03/26/2018 GELLENDER DO, AMANDEEP [...] CHEMOTHERAP 03/31/2018 STEPHEN PRICE Ot Z79.899 OTHER HALF-WAY (CURRENT) DRUG THERAPY 03/31/2018 TSEPHEN PRICE Ot Z87.891 PERSONAL HISTORY OF NICOTINE [...] 04/01/2018 DEE, BOBAN N Ot Z79.899 OTHER HALF-WAY (CURRENT) DRUG THERAPY 04/01/2018 DEE BOBAN N [...] 04/06/2018 DEE BOBAN N Ot Z79.899 OTHER HALF-WAY (CURRENT) DRUG THERAPY 04/06/2018 DEE BOBAN N [...] 04/06/2018 DEE, BOBAN N Ot Z79.899 OTHER OCCUPATIONAL ANALYST (CURRENT) DRUG THERAPY 04/06/2018 STEPHEN PRICE Ot [...] UNSPECIFIED 04/06/2018 STEPHEN PRICE Ot Z79.899 OTHER HALF-WAY (CURRENT) DRUG THERAPY 04/06/2018 STEPHEN PRICE Ot [...] Ot J43.9 EMPHYSEMA, UNSPECIFIED 04/21/2018 GELLENDER DO, AMNADEEP Pineda Ot J98.11 ATELECTASIS 04/21/2018 [facility], AMANDEEP Pineda Ot M19.91 PRIMARY OSTEOARTHRITIS, UNSPECIFIED SITE 04/21/2018 [facility], AMANDEEP Pineda Ot N17.9 ACUTE KIDNEY FAILURE, UNSPECIFIED 04/21/2018 [facility] AMANDEEP Pineda Ot R06.03 ACUTE RESPIRATORY DISTRESS 04/21/2018 [facility], AMANDEEP Pineda Ot R09.02 HYPOXEMIA 04/21/2018 [facility], AMANDEEP Pineda Ot R64 CACHEXIA 04/21/2018 [facility], AMANDEEP Pineda Ot S12.9XXD FRACTURE OF NECK, UNSPECIFIED, SUBSEQUEN 04/21/2018 [facility], AMANDEEP Pineda Ot Z87.891 PERSONAL HISTORY OF NICOTINE DEPENDENCE 04/21/2018 [facility], AMANDEEP Pineda Ot Z99.81 DEPENDENCE ON SUPPLEMENTAL OXYGEN 04/24/2018 [facility], AMANDEEP Pineda Ot 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 04/24/2018 [facility], AMANDEEP Pineda Ot C34.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 04/24/2018 [facility], AMANDEEP Pineda Ot C79.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 04/24/2018 [facility], AMANDEEP Pineda Ot E78.00 PURE HYPERCHOLESTEROLEMIA, UNSPECIFIED 04/24/2018 [facility], AMANDEEP Pineda Ot E86.0 DEHYDRATION 04/24/2018 [facility], AMANDEEP Pineda Ot E87.1 HYPO-OSMOLALITY AND HYPONATREMIA 04/24/2018 [facility], AMANDEEP Pineda Ot E87.8 OTH DISORDERS OF ELECTROLYTE AND FLUID B 04/24/2018 [facility], AMANDEEP Pineda Ot G14 POSTPOLIO SYNDROME 04/24/2018 [facility], AMANDEEP Pineda Ot G40.919 EPILEPSY, UNSP, INTRACTABLE, WITHOUT STA 04/24/2018 [facility] AMANDEEP Pineda Ot G47.30 SLEEP APNEA, UNSPECIFIED 04/24/2018 [facility], AMANDEEP Pineda Ot I10 ESSENTIAL (PRIMARY) HYPERTENSION 04/24/2018 [facility], AMANDEEP Pineda Ot I95.9 HYPOTENSION, UNSPECIFIED 04/24/2018 [facility] AMANDEEP Pineda Ot J18.1 LOBAR PNEUMONIA, UNSPECIFIED ORGANISM 04/24/2018 [facility], AMANDEEP Pineda Ot J30.2 OTHER SEASONAL ALLERGIC RHINITIS 04/24/2018 GELLENDER DO, AMANDEEP Pineda Ot J43.9 EMPHYSEMA, UNSPECIFIED 04/24/2018 GELLENDER DO, AMANDEEP Pineda Ot J98.11 ATELECTASIS 04/24/2018 GELLENDER DO, AMANDEEP Pineda Ot M19.91 PRIMARY OSTEOARTHRITIS, UNSPECIFIED SITE 04/24/2018 GELLENDER DO, AMANDEEP Pineda Ot N17.9 ACUTE KIDNEY FAILURE, UNSPECIFIED 04/24/2018 GELLENDER DO, AMANDEEP Pineda Ot R06.03 ACUTE RESPIRATORY DISTRESS 04/24/2018 GELLENDER DO, AMANDEEP Pindea Ot R09.02 HYPOXEMIA 04/24/2018 GELLENDER DO, AMANDEEP [...] UNSPECIFIED 04/27/2018 STEPHEN PRICE Ot Z79.899 OTHER HALF-WAY (CURRENT) DRUG THERAPY 04/27/2018 STEPHEN PRICE Ot Z87.891 PERSONAL HISTORY OF NICOTINE DEPENDENCE 05/06/2018 SIVA RESENDIZ ENGLISH TEACHER Ot C34.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, LEFT B 05/06/2018 SIVA RESENDIZ ENGLISH TEACHER Ot C79.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 05/07/2018 STEPHEN PRICE Ot C34.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, LEFT B 05/07/2018 STEPHEN PRICE Ot C79.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 05/07/2018 STEPHEN PRICE Ot E78.5 HYPERLIPIDEMIA, UNSPECIFIED 05/07/2018 STEPHEN PRICE Ot G40.909 EPILEPSY, UNSP, NOT INTRACTABLE, WITHOUT 05/07/2018 DEESTEPHEN PATRICIO Flavio Ot J43.9 EMPHYSEMA, UNSPECIFIED 05/07/2018 STEPHEN PRICE Flavio Ot Z79.899 OTHER OCCUPATIONAL ANALYST (CURRENT) DRUG THERAPY 05/07/2018 STEPHEN PRICE Flavio [...] 05/11/2018 DEE STEPHEN Flavio Ot Z79.899 OTHER HALF-WAY (CURRENT) DRUG THERAPY 05/11/2018 STEPHEN PRICE Flavio [...] CHEMOTHERAP 05/25/2018 STEPHEN PRICE Ot Z79.899 OTHER OCCUPATIONAL ANALYST (CURRENT) DRUG THERAPY 05/25/2018 STEPHEN PRICE Ot Z87.891 PERSONAL HISTORY OF NICOTINE DEPENDENCE 05/25/2018 SIVA RESENDIZ ENGLISH TEACHER Ot C34.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, LEFT B 05/25/2018 SIV[employer] RESEND[employer] ENGLISH TEACHER Ot C79.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 [...] Pineda Ot I25.10 ATHSCL HEART DISEASE OF [place] CORONARY 06/13/2018 GELLENDER DO, AMANDEEP Pineda Ot [...] Z87.891 PERSONAL HISTORY OF NICOTINE DEPENDENCE 06/13/2018 [facility] Pineda Ot Z99.81 DEPENDENCE ON SUPPLEMENTAL OXYGEN 06/22/2018 [facility] AM[facility] Pineda Ot R56.9 UNSPECIFIED CONVULSIONS 06/22/2018 [facility], AMANDEEP Pineda Ot F17.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, UNSPECIFIED, UNCOMP 06/22/2018 GELLENDER DO, AMANDEEP Pineda Ot J44.9 CHRONIC OBSTRUCTIVE PULMONARY DISEASE, U 06/22/2018 GELLENDER DO, AMANDEEP Pineda Ot R63.4 ABNORMAL WEIGHT LOSS 06/22/2018 [facility] AM[facility]EP Pineda Ot J44.9 CHRONIC OBSTRUCTIVE PULMONARY DISEASE, U 06/22/2018 GE[facility]END[facility] DO, AMANDEEP Pineda Ot R63.4 ABNORMAL WEIGHT LOSS 06/22/2018 GELLENDER DO, AMANDEEP Pineda Ot R63.4 ABNORMAL WEIGHT LOSS 06/22/2018 [facility] AM[facility]EP Pineda Ot G40.909 EPILEPSY, [...] ABNORMAL FINDING OF DAVID 06/22/2018 [employer] RESEND[employer] ENGLISH TEACHER Ot C34.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, LEFT B 06/22/2018 SIV[employer] RESENDIZ ENGLISH TEACHER Ot C79.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 06/22/2018 AMANDEEP GENAO DO Ot B35.1 TINEA UNGUIUM 06/22/2018 S[facility] RESENDIZ ENGLISH TEACHER Ot C34.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, LEFT B 06/22/2018 [facility] RESEND[employer] ENGLISH TEACHER Ot C79.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 06/22/2018 S[facility] RESEND[employer] ENGLISH TEACHER Ot C34.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, LEFT B 06/22/2018 [facility] RESENDIZP Ot C34.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, LEFT B 06/22/2018 [employer] RES[employer] ENGLISH TEACHER Ot C79.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 06/22/2018 AMANDEEP GENAO DO Ot M43.12 SPONDYLOLISTHESIS, CERVICAL REGION 06/22/2018 [facility] Ot M47.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 06/22/2018 [facility] LASSITER Ot S19.9XXA UNSPECIFIED INJURY [...] CHEMOTHERAP 06/22/2018 STEPHEN PRICE Ot Z79.899 OTHER OCCUPATIONAL ANALYST (CURRENT) DRUG THERAPY 06/22/2018 STEPHEN PRICE Ot Z87.891 PERSONAL HISTORY OF NICOTINE DEPENDENCE 06/22/2018 [employer] RES[employer] ENGLISH TEACHER Ot C34.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, [...] Pineda Ot H53.9 UNSPECIFIED VISUAL DISTURBANCE 06/25/2018 [facility] DO, AMANDEEP Pineda Ot I10 ESSENTIAL (PRIMARY) HYPERTENSION 06/25/2018 [facility] Pineda Ot I38 ENDOCARDITIS, VALVE UNSPECIFIED 06/25/2018 [facility]END[facility] DO, AMANDEEP Pineda Ot J18.1 LOBAR PNEUMONIA, UNSPECIFIED ORGANISM 06/25/2018 [facility] AM[facility]EP Pineda Ot J44.9 CHRONIC OBSTRUCTIVE PULMONARY DISEASE, U 06/25/2018 [facility] Pineda Ot M19.91 PRIMARY OSTEOARTHRITIS, UNSPECIFIED SITE 06/25/2018 [facility] DO, AMANDEEP Pineda Ot R01.1 CARDIAC MURMUR, UNSPECIFIED 06/25/2018 [facility], AM[facility]DEEP Pineda Ot R41.0 DISORIENTATION, UNSPECIFIED 06/25/2018 GELDER DO, AMANDEEP Pineda Ot R42 DIZZINESS AND GIDDINESS 06/25/2018 [facility], AM[facility]EP Pineda Ot R47.81 SLURRED SPEECH 06/25/2018 [facility], AMANDEEP Pineda Ot R79.89 OTHER SPECIFIED ABNORMAL FINDINGS OF BLO 06/25/2018 [facility], AMANDEEP Pineda Ot T42.0X5A ADVERSE EFFECT OF HYDANTOIN DERIVATIVES, 06/25/2018 [facility] AM[facility] Ot T42.1X5A ADVERSE EFFECT OF IMINOSTILBENES, INITIA 06/25/2018 [facility] , AMANDEEP Pineda Ot Z87.891 PERSONAL HISTORY OF NICOTINE DEPENDENCE 06/25/2018 [facility] AMANDEEP Pineda Ot Z92.21 PERSONAL HISTORY OF ANTINEOPLASTIC CHEMO 06/25/2018 [facility], AMANDEEP Pineda Ot Z99.81 DEPENDENCE ON SUPPLEMENTAL OXYGEN 06/26/2018 [facility], AMANDEEP Pineda Ot C34.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 06/26/2018 [facility] AMANDEEP Pineda Ot C79.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 06/26/2018 [facility], AMANDEEP Pineda Ot D64.9 ANEMIA, UNSPECIFIED [...] FX OF SECOND CERVICAL VERTEBRA, 06/28/2018 [facility] RSEENDIZ Ot W19.XXXA UNSPECIFIED FALL, INITIAL ENCOUNTER 06/28/2018 [...] W/O MYELOPATHY OR RADICULOPA 07/10/2018 [employer] RESEND[employer] ENGLISH TEACHER Ot S12.190A OTH DISP FX OF SECOND CERVICAL VERTEBRA, 07/10/2018 [employer] RESEND[employer] ENGLISH TEACHER Ot W19.XXXA UNSPECIFIED FALL, INITIAL ENCOUNTER 07/10/2018 [employer] RESEND[employer] ENGLISH TEACHER Ot Z95.828 PRESENCE OF OTHER VASCULAR IMPLANTS [...] DO Ot R63.4 ABNORMAL WEIGHT LOSS 07/14/2018 DEESETPHEN Ot J43.9 EMPHYSEMA, UNSPECIFIED 07/14/2018 STEPHEN PRICE [...] UPPER LOBE, LEFT B 07/14/2018 SIVA RESENDIZ ENGLISH TEACHER Ot C79.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 [...] CHEMOTHERAP 07/14/2018 STEPHEN PRICE Ot Z79.899 OTHER OCCUPATIONAL ANALYST (CURRENT) DRUG THERAPY 07/14/2018 STEPHEN PRICE Ot [...] NEOPLASM OF BONE 07/21/2018 [facility] AMANDEEP LASSITER Ot B35.1 TINEA UNGUIUM 07/21/2018 SIVA RESENDIZP Ot C34.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, LEFT B 07/21/2018 SIVA RESENDIZP Ot C79.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 07/21/2018 SIVA RESENDIZP Ot C34.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, LEFT B 07/21/2018 SIVA RESENDIZP Ot C34.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, LEFT B 07/21/2018 SIVA RESENDIZP Ot C79.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 07/21/2018 [facility] AMANDEEP LASSITER Ot M43.12 SPONDYLOLISTHESIS, CERVICAL REGION [...] CHEMOTHERAP 07/21/2018 STEPHEN PRICE Ot Z79.899 OTHER OCCUPATIONAL ANALYST (CURRENT) DRUG THERAPY 07/21/2018 STEPHEN PRICE Ot [...] 07/24/2018 [facility] LASSITER, AMANDEEP Pineda Ot Z79.52 OCCUPATIONAL ANALYST (CURRENT) USE OF SYSTEMIC STER 07/24/2018 [facility] LASSITER, AMANDEEP Pineda Ot Z79.899 OTHER HALF-WAY (CURRENT) DRUG THERAPY 07/24/2018 [facility] LASSITER, AMANDEEP Pineda Ot Z87.891 PERSONAL HISTORY OF NICOTINE DEPENDENCE 07/24/2018 [facility] LASSITER, AMANDEEP Pineda Ot Z91.19 PATIENT'S NONCOMPLIANCE W [facility] 07/24/2018 [facility] LASSITER, AMANDEEP [...] 07/26/2018 STEPHEN PRICE N Ot Z79.899 OTHER HALF-WAY (CURRENT) DRUG THERAPY 07/26/2018 STEPHEN PRICE N [...] 07/27/2018 STEPHEN PRICE N Ot Z79.899 OTHER HALF-WAY (CURRENT) DRUG THERAPY 07/27/2018 STEPHEN PRICE Ot Z87.891 PERSONAL HISTORY OF NICOTINE DEPENDENCE 07/27/2018 STEPHEN PRICE Flavio Ot C34.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, LEFT B 07/27/2018 STEPHEN PRICE Flavio Ot C79.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 07/27/2018 STEPHEN RPICE Flavio Ot D64.9 ANEMIA, UNSPECIFIED 07/27/2018 STEPHEN PRICE Flavio Ot E78.5 HYPERLIPIDEMIA, UNSPECIFIED 07/27/2018 STEPHEN PRICE Flavio Ot G40.909 EPILEPSY, UNSP, NOT INTRACTABLE, WITHOUT 07/27/2018 STEPHEN PRICE Flavio Ot J43.9 EMPHYSEMA, UNSPECIFIED 07/27/2018 STEPHEN PRICE Flavio Ot Z51.11 ENCOUNTER FOR ANTINEOPLASTIC CHEMOTHERAP 07/27/2018 STEPHEN PRICE Flavio Ot Z79.899 OTHER HALF-WAY (CURRENT) DRUG THERAPY 07/27/2018 STEPHEN PRICE N [...] R91.1 SOLITARY PULMONARY NODULE 08/10/2018 SIVA RESENDIZ ENGLISH TEACHER Ot C34.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, LEFT B 08/10/2018 SIVA RESENDIZ ENGLISH TEACHER Ot C79.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 08/10/2018 SIVA RESENDIZ ENGLISH TEACHER Ot C34.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, LEFT B 08/10/2018 SIVA RESENDIZ ENGLISH TEACHER Ot C79.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 [...] Ot 783.21 LOSS OF WEIGHT 08/10/2018 AMANDEEP GNEAO DO Ot 789.00 ABDOMINAL PAIN, UNSPECIFIED SITE 08/10/2018 AMANDEEP GENAO DO Ot 272.4 HYPERLIPIDEMIA NEC/NOS 08/10/2018 AMANDEEP GENAO DO Ot 496 CHR AIRWAY OBSTRUCT NEC 08/10/2018 AMANDEEP GENAO DO Ot 780.39 OTHER CONVULSIONS 08/10/2018 GELLENDER DO, AMANDEEP Pineda Ot 729.81 SWELLING OF LIMB 08/10/2018 [facility] AMANDEEP Pineda Ot 780.79 OTH MALAISE FATIGUE 08/10/2018 GABRIELLE RIOS, YELITZA Marie Ot 780.3 9 OTHER CONVULSIONS 08/10/2018 [facility] AM[facility]DEEP Pineda Ot 825.25 FX METATARSAL-CLOSED 08/10/2018 [facility] AMANDEEP Pineda Ot E928.9 ACCIDENT NOS 08/10/2018 [facility] AMANDEEP Pineda Ot 780.39 OTHER CONVULSIONS 08/10/2018 GELLENDER DO, AMANDEEP Pineda Ot 721.0 CERVICAL SPONDYLOSIS 08/10/2018 [facility] AMANDEEP Pineda Ot 496 CHR AIRWAY OBSTRUCT NEC 08/10/2018 [facility], AMANDEEP Pineda Ot 780.39 OTHER CONVULSIONS 08/10/2018 [facility] AMANDEEP Pineda Ot E78.5 HYPERLIPIDEMIA, UNSPECIFIED 08/10/2018 [facility] AMANDEEP Pineda Ot J44.9 CHRONIC OBSTRUCTIVE PULMONARY DISEASE, U 08/10/2018 GELLENDER , AMANDEEP Pineda Ot M79.672 PAIN IN LEFT FOOT 08/10/2018 [facility] AMANDEEP Pineda Ot R56.9 UNSPECIFIED CONVULSIONS 08/10/2018 [facility] AMANDEEP Pineda Ot Z87.81 PERSONAL HISTORY OF (HEALED) TRAUMATIC F 08/10/2018 [facility] , AMANDEEP Pineda Ot E78.5 HYPERLIPIDEMIA, UNSPECIFIED 08/10/2018 GELLENDER DO, AMANDEEP Pineda Ot R56.9 UNSPECIFIED CONVULSIONS 08/10/2018 [facility], AMANDEEP Pineda Ot J44.9 CHRONIC OBSTRUCTIVE PULMONARY DISEASE, U 08/10/2018 GELLENDER DO, AMANDEEP Pineda Ot R63.4 ABNORMAL WEIGHT LOSS 08/10/2018 GELLENDER DO, AMANDEEP Pineda Ot R63.4 ABNORMAL WEIGHT LOSS 08/10/2018 GELLENDER DO, AMANDEEP Pineda Ot G40.909 EPILEPSY, UNSP, NOT INTRACTABLE, WITHOUT 08/10/2018 GELLENDER DO, AMANDEEP Pineda Ot J34.89 OTHER SPECIFIED DISORDERS OF NOSE AND NA 08/10/2018 [facility] AMAN[facility]EP Pineda Ot S99.912A UNSPECIFIED [...] DISEASE, U 08/12/2018 NESTOR AVILEZ Ot Z79.51 OCCUPATIONAL ANALYST (CURRENT) USE OF INHALED STERO 08/12/2018 NESTOR [...] DISEASE, U 08/14/2018 NESTOR AVILEZ Ot Z79.51 HALF-WAY (CURRENT) USE OF INHALED STERO 08/14/2018 NESTOR [...] CHEMOTHERAP 08/19/2018 STEPHEN PRICE Ot Z79.899 OTHER HALF-WAY (CURRENT) DRUG THERAPY 08/19/2018 STEPHEN PRICE Ot [...] HERNANDEZ MD, Ot Y92.[address] IN [email or web address] NON-INSTITUT (PRIVATE 09/04/2018 STEFAN HERNANDEZ MD, Ot Z23 ENCOUNTER FOR IMMUNIZATION 09/04/2018 STEFAN HERNANDEZ MD, Ot Z79.51 OCCUPATIONAL ANALYST (CURRENT) USE OF INHALED STERO 09/04/2018 STEFAN [...] Ot Z99.81 DEPENDENCE ON SUPPLEMENTAL OXYGEN 09/07/2018 [facility], AMANDEEP Pineda Ot C79.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 09/07/2018 [facility] Ot E78.00 PURE HYPERCHOLESTEROLEMIA, UNSPECIFIED 09/07/2018 [facility] Ot E87.1 HYPO-OSMOLALITY AND HYPONATREMIA 09/07/2018 [facility] Ot G14 POSTPOLIO SYNDROME 09/07/2018 [facility] Ot G40.909 EPILEPSY, UNSP, NOT INTRACTABLE, WITHOUT 09/07/2018 [facility] Ot G47.30 SLEEP APNEA, UNSPECIFIED 09/07/2018 [facility] Ot G62.9 POLYNEUROPATHY, UNSPECIFIED 09/07/2018 [facility] Ot I10 ESSENTIAL (PRIMARY) HYPERTENSION 09/07/2018 [facility] Ot J44.1 CHRONIC OBSTRUCTIVE PULMONARY DISEASE W 09/07/2018 [facility] Ot M19.91 PRIMARY OSTEOARTHRITIS, UNSPECIFIED SITE 09/07/2018 [facility] AMANDEEP LASSITER Ot R01.1 CARDIAC MURMUR, UNSPECIFIED 09/07/2018 [facility] Ot R09.02 HYPOXEMIA 09/07/2018 [facility] AMANDEEP LASSITER Ot R26.2 DIFFICULTY IN WALKING, NOT ELSEWHERE CLA 09/07/2018 [facility] SCHMIDT DO Ot R29.6 REPEATED FALLS 09/07/2018 [facility] Ot R41.82 ALTERED MENTAL STATUS, UNSPECIFIED 09/07/2018 [facility], AMANDEEP Pineda Ot R42 DIZZINESS AND GIDDINESS 09/07/2018 [facility], AMANDEEP Pineda Ot R47.81 SLURRED SPEECH 09/07/2018 [facility], AMANDEEP Pineda Ot R53.1 WEAKNESS 09/07/2018 [facility], AMANDEEP Pineda Ot S09.90XA UNSPECIFIED INJURY OF HEAD, INITIAL ENCO 09/07/2018 [facility] AMANDEEP Pineda Ot S90.812A ABRASION, LEFT FOOT, INITIAL ENCOUNTER 09/07/2018 [facility], AMANDEEP Pineda Ot W01.190A FALL SAME LEV FROM SLIP/TRIP W STRIKE AG 09/07/2018 [facility] AMANDEEP Pineda Ot Y92.009 [facility] [email or web address] PLACE IN [facility] [email or web address] NON-INSTITUT (PRIVATE 09/07/2018 [facility] , AMANDEEP Pineda Ot Z85.118 PERSONAL HISTORY OF MALIGNANT NEOPLASM O 09/07/2018 [facility] Ot Z87.01 PERSONAL HISTORY OF PNEUMONIA (RECURRENT 09/07/2018 [facility], AMANDEEP Miriam Ot Z87.891 PERSONAL HISTORY OF NICOTINE DEPENDENCE 09/07/2018 [facility] Miriam Ot Z92.21 PERSONAL HISTORY OF ANTINEOPLASTIC CHEMO 09/07/2018 [facility], AMANDEEP Miriam Ot Z99.81 DEPENDENCE ON [...] HERNANDEZ MD, Ot Y92.[address] IN [facility] [email or web address] NON-INSTITUT (PRIVATE 09/08/2018 STEFAN HERNANDEZ MD, Ot Z23 ENCOUNTER FOR IMMUNIZATION 09/08/2018 STEFAN HERNANDEZ MD, Ot Z79.51 HALF-WAY (CURRENT) USE OF INHALED STERO 09/08/2018 STEFAN [...] CHEMOTHERAP 09/14/2018 STEPHEN PRICE Ot Z79.899 OTHER OCCUPATIONAL ANALYST (CURRENT) DRUG THERAPY 09/14/2018 DEESTEPHEN PATRICIO Flavio Ot Z87.891 PERSONAL HISTORY OF NICOTINE DEPENDENCE 09/15/2018 NINA ANAYA LEAN SIX SIGMA BLACK BELT Ot C34.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, LEFT B 09/15/2018 NINA ANAYA LEAN SIX SIGMA BLACK BELT Ot F17.201 NICOTINE DEPENDENCE, UNSPECIFIED, IN REM 09/15/2018 NINA ANAYA LEAN SIX SIGMA BLACK BELT Ot I25.10 ATHSCL HEART DISEASE OF [place] CORONARY 09/15/2018 IRMA ANAYAINE Juli LEAN SIX SIGMA BLACK BELT Ot I70.0 ATHEROSCLEROSIS OF [place] 09/15/2018 NINA ANAYA LEAN SIX SIGMA BLACK BELT Ot J18.9 PNEUMONIA, UNSPECIFIED ORGANISM 09/15/2018 IRMA ANAYAINE E LEAN SIX SIGMA BLACK BELT Ot J43.9 EMPHYSEMA, UNSPECIFIED 09/15/2018 IRMA ANAYAINE E LEAN SIX SIGMA BLACK BELT Ot J96.20 ACUTE AND CHR RESP FAILURE, UNSP W HYPOX 09/15/2018 IRMA ANAYAINE Juli LEAN SIX SIGMA BLACK BELT Ot J98.4 OTHER DISORDERS OF LUNG 09/15/2018 IRMA ANAYAINE Juli LEAN SIX SIGMA BLACK BELT Ot R91.8 OTHER NONSPECIFIC ABNORMAL FINDING OF DAVID 09/20/2018 NINA ANAYA LEAN SIX SIGMA BLACK BELT Ot C34.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, LEFT B 09/20/2018 NINA ANAYA LEAN SIX SIGMA BLACK BELT Ot F17.201 NICOTINE DEPENDENCE, UNSPECIFIED, IN REM 09/20/2018 IRMA ANAYAINE Juli LEAN SIX SIGMA BLACK BELT Ot I25.10 ATHSCL HEART DISEASE OF [place] CORONARY 09/20/2018 NINA ANAYA LEAN SIX SIGMA BLACK BELT Ot I70.0 ATHEROSCLEROSIS OF [place] 09/20/2018 NINA ANAYA LEAN SIX SIGMA BLACK BELT Ot J18.9 PNEUMONIA, UNSPECIFIED ORGANISM 09/20/2018 IRMA ANAYAINE Juli LEAN SIX SIGMA BLACK BELT Ot J43.9 EMPHYSEMA, UNSPECIFIED 09/20/2018 IRMA ANAYAINE E LEAN SIX SIGMA BLACK BELT Ot J96.20 ACUTE AND CHR RESP FAILURE, UNSP W HYPOX 09/20/2018 IRMA ANAYAINE Juli LEAN SIX SIGMA BLACK BELT Ot J98.4 OTHER DISORDERS OF LUNG 09/20/2018 IRMA ANAYAINE Juli LEAN SIX SIGMA BLACK BELT Ot R91.8 OTHER NONSPECIFIC ABNORMAL FINDING OF [...] 09/24/2018 STEPHEN PRICE Flavio Ot Z79.899 OTHER OCCUPATIONAL ANALYST (CURRENT) DRUG THERAPY 09/24/2018 STEPHEN PRICE Flavio [...] BREATH 10/05/2018 STEFAN HERNANDEZ MD, Ot Z79.51 HALF-WAY (CURRENT) USE OF INHALED STERO 10/05/2018 STEFAN [...] 10/05/2018 DEE, BOBAN N Ot Z79.899 OTHER HALF-WAY (CURRENT) DRUG THERAPY 10/05/2018 DEE, BOBAN N [...] 10/08/2018 DEE, BOBAN N Ot Z79.899 OTHER HALF-WAY (CURRENT) DRUG THERAPY 10/08/2018 DEE, BOBAN N [...] BREATH 10/10/2018 STEFAN HERNANDEZ MD, Ot Z79.51 HALF-WAY (CURRENT) USE OF INHALED STERO 10/10/2018 STEFAN HERNANDEZ MD Ot Z82.49 FAMILY HX OF ISCHEM HEART DIS AND OTH DI 10/10/2018 STEFAN HENRANDEZ MD, Ot Z85.118 PERSONAL HISTORY OF MALIGNANT NEOPLASM O 10/10/2018 STEFAN HERNANDEZ MD, Ot Z87.01 PERSONAL HISTORY OF PNEUMONIA (RECURRENT 10/10/2018 STEFAN HERNANDEZ MD, Ot Z87.891 PERSONAL HISTORY OF NICOTINE DEPENDENCE 10/10/2018 STEAFN HERNANDEZ MD, Ot Z88.6 ALLERGY STATUS TO [...] BREATH 10/12/2018 STEFAN HERNANDEZ MD Ot Z79.51 OCCUPATIONAL ANALYST (CURRENT) USE OF INHALED STERO 10/12/2018 STEFAN [...] APRN Ot I25.10 ATHSCL HEART DISEASE OF [place] CORONARY 10/12/2018 NINA ANAYA APRN Ot I70.0 [...] ABNORMAL FINDING OF DAVID 10/27/2018 NINA ANAYA LEAN SIX SIGMA BLACK BELT Ot C34.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, LEFT B 10/27/2018 NINA ANAYA LEAN SIX SIGMA BLACK BELT Ot F17.201 NICOTINE DEPENDENCE, UNSPECIFIED, IN REM 10/27/2018 NINA ANAYA LEAN SIX SIGMA BLACK BELT Ot I25.10 ATHSCL HEART DISEASE OF [place] CORONARY 10/27/2018 NINA ANAYA LEAN SIX SIGMA BLACK BELT Ot I70.0 ATHEROSCLEROSIS OF [place] 10/27/2018 NINA ANAYA LEAN SIX SIGMA BLACK BELT Ot J18.9 PNEUMONIA, UNSPECIFIED ORGANISM 10/27/2018 NINA ANAYA LEAN SIX SIGMA BLACK BELT Ot J43.9 EMPHYSEMA, UNSPECIFIED 10/27/2018 NINA ANAYA LEAN SIX SIGMA BLACK BELT Ot J96.20 ACUTE AND CHR RESP FAILURE, UNSP W HYPOX 10/27/2018 NINA ANAYA LEAN SIX SIGMA BLACK BELT Ot J98.4 OTHER DISORDERS OF LUNG 10/27/2018 NINA ANAYA LEAN SIX SIGMA BLACK BELT Ot R91.8 OTHER NONSPECIFIC ABNORMAL FINDING OF [...] CHEMOTHERAP 11/03/2018 STEPHEN PRICE Ot Z79.899 OTHER HALF-WAY (CURRENT) DRUG THERAPY 11/03/2018 STEPHEN PRICE Ot [...] ABDOMINAL PAIN, UNSPECIFIED SITE 11/09/2018 GELLENDER DO, AMANDEPE Pineda Ot 272.4 HYPERLIPIDEMIA NEC/NOS 11/09/2018 GELLENDER [...] 11/10/2018 KURT MOHR MD Ot Z79.899 OTHER OCCUPATIONAL ANALYST (CURRENT) DRUG THERAPY 11/17/2018 STEPHEN PRICE Ot [...] CHEMOTHERAP 11/17/2018 STEPHEN PRICE Ot Z79.899 OTHER HALF-WAY (CURRENT) DRUG THERAPY 11/17/2018 STEPHEN PRICE Ot [...] Ot J98.11 ATELECTASIS 11/17/2018 RESENDIZSIVA Rodriguez Jennifer ENGLISH TEACHER Ot M43.12 SPONDYLOLISTHESIS, CERVICAL REGION 11/17/2018 SIVA RESENDIZ ENGLISH TEACHER Ot M47.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 11/17/2018 SIVA RESENDIZ ENGLISH TEACHER Ot S12.190A OTH DISP FX OF SECOND CERVICAL VERTEBRA, 11/17/2018 SIVA RESENDIZ ENGLISH TEACHER Ot W19.XXXA UNSPECIFIED FALL, INITIAL ENCOUNTER 11/17/2018 RESENDIZSIVA Rodriguez Jennifer ENGLISH TEACHER Ot Z95.828 PRESENCE OF OTHER VASCULAR IMPLANTS AND 11/17/2018 NINA ANAYA APRN Ot C34.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, LEFT B 11/17/2018 NINA ANAYA APRN Ot F17.201 NICOTINE DEPENDENCE, UNSPECIFIED, IN REM 11/17/2018 NINA ANAYA APRN Ot I25.10 ATHSCL HEART DISEASE OF [place] CORONARY 11/17/2018 NINA ANAYA APRN Ot I70.0 [...] 11/17/2018 DEE, BOBAN N Ot Z79.899 OTHER OCCUPATIONAL ANALYST (CURRENT) DRUG THERAPY 11/17/2018 DEE, BOBAN N [...] 11/18/2018 DEE, BOBAN N Ot Z79.899 OTHER HALF-WAY (CURRENT) DRUG THERAPY 11/18/2018 DEE, BOBAN N [...] 11/23/2018 STEPHEN PRICE Flavio Ot Z79.899 OTHER HALF-WAY (CURRENT) DRUG THERAPY 11/23/2018 STEPHEN PRICE Flavio Ot Z87.891 PERSONAL HISTORY OF NICOTINE DEPENDENCE 11/24/2018 STEPHEN PRICE Flavio Ot C34.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, LEFT B 11/24/2018 STEPHEN PRICE Flavio Ot C79.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 11/24/2018 STEPHEN PRICE Flavio Ot Z01.89 ENCOUNTER FOR OTHER SPECIFIED SPECIAL EX 11/25/2018 FAVIAN COWARTP Ot E78.00 PURE HYPERCHOLESTEROLEMIA, UNSPECIFIED 11/25/2018 SOFYA, FAVIAN ENGLISH TEACHER Ot F17.210 NICOTINE DEPENDENCE, CIGARETTES, UNCOMPL 11/25/2018 SOFYA, FAVIAN ENGLISH TEACHER Ot F17.290 NICOTINE DEPENDENCE, OTHER TOBACCO PRODU 11/25/2018 FAVIAN COWARTP Ot G40.909 EPILEPSY, UNSP, NOT INTRACTABLE, WITHOUT 11/25/2018 SOFYA FAVIAN ENGLISH TEACHER Ot G47.30 SLEEP APNEA, UNSPECIFIED 11/25/2018 SOFYA FAVIAN ENGLISH TEACHER Ot G62.9 POLYNEUROPATHY, UNSPECIFIED 11/25/2018 SOFYA, FAVIAN ENGLISH TEACHER Ot I10 ESSENTIAL (PRIMARY) HYPERTENSION 11/25/2018 SOFYA FAVIAN ENGLISH TEACHER Ot J06.9 ACUTE UPPER RESPIRATORY INFECTION, UNSPE 11/25/2018 FAVIAN COWARTP Ot J44.9 CHRONIC OBSTRUCTIVE PULMONARY DISEASE, U 11/25/2018 FAVIAN COWARTP Ot R05 COUGH 11/25/2018 FAVIAN COWART ENGLISH TEACHER Ot S12.100A UNSP DISP FX OF SECOND CERVICAL VERTEBRA 11/25/2018 FAVIAN COWARTP Ot W19.XXXA UNSPECIFIED FALL, INITIAL ENCOUNTER 11/25/2018 FAVIAN COWARTP Ot Z79.51 HALF-WAY (CURRENT) USE OF INHALED STERO 11/25/2018 FAVIAN COWARTP Ot Z82.49 FAMILY HX OF ISCHEM HEART DIS AND OTH DI 11/25/2018 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 Ot Z85.118 PERSONAL HISTORY OF MALIGNANT NEOPLASM O 11/25/2018 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 Ot Z87.81 PERSONAL HISTORY OF (HEALED) TRAUMATIC F 11/25/2018 SOFYA FAVIAN ENGLISH TEACHER Ot Z88.6 ALLERGY STATUS TO ANALGESIC AGENT STATUS 11/27/2018 FAVIAN COWART ENGLISH TEACHER Ot E78.00 PURE HYPERCHOLESTEROLEMIA, UNSPECIFIED 11/27/2018 SOFYA, FAVIAN ENGLISH TEACHER Ot F17.210 NICOTINE DEPENDENCE, CIGARETTES, UNCOMPL 11/27/2018 SOFYA, FAVIAN ENGLISH TEACHER Ot F17.290 NICOTINE DEPENDENCE, OTHER TOBACCO PRODU 11/27/2018 SOFYA, FAVIAN ENGLISH TEACHER Ot G40.909 EPILEPSY, UNSP, NOT INTRACTABLE, WITHOUT 11/27/2018 SOFYA, FAVIAN ENGLISH TEACHER Ot G47.30 SLEEP APNEA, UNSPECIFIED 11/27/2018 SOFYA, FAVIAN ENGLISH TEACHER Ot G62.9 POLYNEUROPATHY, UNSPECIFIED 11/27/2018 SOFYA, FAVIAN ENGLISH TEACHER Ot I10 ESSENTIAL (PRIMARY) HYPERTENSION 11/27/2018 SOFYA, FAVIAN ENGLISH TEACHER Ot J06.9 ACUTE UPPER RESPIRATORY INFECTION, UNSPE 11/27/2018 SOFYA, FAVIAN ENGLISH TEACHER Ot J44.9 CHRONIC OBSTRUCTIVE PULMONARY DISEASE, U 11/27/2018 FAVIAN COWART ENGLISH TEACHER Ot R05 COUGH 11/27/2018 SOFYA, FAVIAN ENGLISH TEACHER Ot S12.100A UNSP DISP FX OF SECOND CERVICAL VERTEBRA 11/27/2018 SOFYA, FAVIAN ENGLISH TEACHER Ot W19.XXXA UNSPECIFIED FALL, INITIAL ENCOUNTER 11/27/2018 FAVIAN COWART ENGLISH TEACHER Ot Z79.51 OCCUPATIONAL ANALYST (CURRENT) USE OF INHALED STERO 11/27/2018 FAVIAN COWART ENGLISH TEACHER Ot Z82.49 FAMILY HX OF ISCHEM HEART DIS AND OTH DI 11/27/2018 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 Ot Z85.118 PERSONAL HISTORY OF MALIGNANT NEOPLASM O 11/27/2018 FAVIAN COWART ENGLISH TEACHER Ot Z87.81 PERSONAL HISTORY OF (HEALED) TRAUMATIC F 11/27/2018 SOFYA FAVIAN ENGLISH TEACHER Ot Z88.6 ALLERGY STATUS TO ANALGESIC AGENT [...] CHEMOTHERAP 12/10/2018 STEPHEN PRICE Ot Z79.899 OTHER HALF-WAY (CURRENT) DRUG THERAPY 12/10/2018 STEPHEN PRICE Ot [...] INITIAL ENCOUNTER 01/09/2019 FAVIAN COWART Ot Z79.51 OCCUPATIONAL ANALYST (CURRENT) USE OF INHALED STERO 01/09/2019 FAVIAN [...] MALIGNANT NEOPLASM OF UNSPECIF 01/18/2019 SOFYA, FAVIAN ENGLISH TEACHER Ot E78.00 PURE HYPERCHOLESTEROLEMIA, UNSPECIFIED 01/18/2019 SOFYA FAVIAN ENGLISH TEACHER Ot G40.909 EPILEPSY, UNSP, NOT INTRACTABLE, WITHOUT 01/18/2019 FAVIAN COWART ENGLISH TEACHER Ot G62.9 POLYNEUROPATHY, UNSPECIFIED 01/18/2019 FAVIAN COWART ENGLISH TEACHER Ot I10 ESSENTIAL (PRIMARY) HYPERTENSION 01/18/2019 FAVIAN COWARTP Ot J44.9 CHRONIC OBSTRUCTIVE PULMONARY DISEASE, U 01/18/2019 FAVIAN COWART ENGLISH TEACHER Ot M19.012 PRIMARY OSTEOARTHRITIS, LEFT SHOULDER 01/18/2019 FAVIAN COWART ENGLISH TEACHER Ot M25.512 PAIN IN LEFT SHOULDER 01/18/2019 FAVIAN COWART ENGLISH TEACHER Ot M75.102 UNSP ROTATR-CUFF TEAR/RUPTR OF LEFT SHOU 01/18/2019 FAVIAN COWART ENGLISH TEACHER Ot W19.XXXA UNSPECIFIED FALL, INITIAL ENCOUNTER 01/18/2019 FAVIAN COWARTP Ot Z79.51 HALF-WAY (CURRENT) USE OF INHALED STERO 01/18/2019 FAVIAN COWART ENGLISH TEACHER Ot Z82.49 FAMILY HX OF ISCHEM HEART DIS AND OTH DI 01/18/2019 FAVIAN COWART ENGLISH TEACHER Ot Z87.891 PERSONAL HISTORY OF NICOTINE DEPENDENCE 01/18/2019 FAVIAN COWART ENGLISH TEACHER Ot Z88.6 ALLERGY STATUS TO ANALGESIC AGENT STATUS 01/18/2019 FAVIAN COWART ENGLISH TEACHER Ot Z99.81 DEPENDENCE ON SUPPLEMENTAL OXYGEN 01/21/2019 FAVIAN COWART ENGLISH TEACHER Ot C34.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 01/21/2019 FAVIAN COWART ENGLISH TEACHER Ot C79.9 SECONDARY MALIGNANT NEOPLASM OF UNSPECIF 01/21/2019 FAVIAN COWART ENGLISH TEACHER Ot E78.00 PURE HYPERCHOLESTEROLEMIA, UNSPECIFIED 01/21/2019 FAVIAN COWART ENGLISH TEACHER Ot G40.909 EPILEPSY, UNSP, NOT INTRACTABLE, WITHOUT 01/21/2019 FAVIAN COWART ENGLISH TEACHER Ot G62.9 POLYNEUROPATHY, UNSPECIFIED 01/21/2019 SOFYA FAVIAN ENGLISH TEACHER Ot I10 ESSENTIAL (PRIMARY) HYPERTENSION 01/21/2019 FAVIAN COWART ENGLISH TEACHER Ot J44.9 CHRONIC OBSTRUCTIVE PULMONARY DISEASE, U 01/21/2019 FAVIAN COWART ENGLISH TEACHER Ot M19.012 PRIMARY OSTEOARTHRITIS, LEFT SHOULDER 01/21/2019 FAVIAN COWART Ot M25.512 PAIN IN LEFT SHOULDER 01/21/2019 SOFYAFAVIAN Bustos Ot M75.102 UNSP ROTATR-CUFF TEAR/RUPTR OF LEFT SHOU 01/21/2019 SOFYAFAVIAN Bustos Ot W19.XXXA UNSPECIFIED FALL, INITIAL ENCOUNTER 01/21/2019 SOFYAFAVIAN Bustos Ot Z79.51 OCCUPATIONAL ANALYST (CURRENT) USE OF INHALED STERO 01/21/2019 FAVIAN [...] CHEMOTHERAP 02/17/2019 STEPHEN PRICE Ot Z79.899 OTHER HALF-WAY (CURRENT) DRUG THERAPY 02/17/2019 STEPHEN PRICE Ot Z87.891 PERSONAL HISTORY OF NICOTINE DEPENDENCE 02/18/2019 AMANDEEP GENAO DO Ot M47.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 02/18/2019 AMANDEEP GENAO DO Ot S12.110A ANTERIOR DISPLACED TYPE II DENS FRACTURE 02/18/2019 AMANDEEP GENAO DO Ot W19.XXXA UNSPECIFIED FALL, INITIAL ENCOUNTER 02/18/2019 STEPHEN PRICE Ot C34.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, LEFT B 02/18/2019 STEPEHN PRICE Ot C79.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 02/18/2019 STEPHEN PRICE Ot E78.5 HYPERLIPIDEMIA, UNSPECIFIED 02/18/2019 STEPHEN PRICE Ot G40.909 EPILEPSY, UNSP, NOT INTRACTABLE, WITHOUT 02/18/2019 DEESTEPHEN Ot J43.9 EMPHYSEMA, UNSPECIFIED 02/18/2019 DEESTEPHEN Ot Z51.11 ENCOUNTER FOR ANTINEOPLASTIC CHEMOTHERAP 02/18/2019 DEESTEPHEN Ot Z79.899 OTHER OCCUPATIONAL ANALYST (CURRENT) DRUG THERAPY 02/18/2019 DEE, STEPHEN Muniz [...] 02/20/2019 GELLENDER DO, AMANDEEP Pineda Ot Z79.51 HALF-WAY (CURRENT) USE OF INHALED STERO 02/20/2019 GELLENDER DO, AMANDEEP Pineda Ot Z85.118 PERSONAL HISTORY OF MALIGNANT NEOPLASM O 02/20/2019 GELLENDER DO, AMANDEEP Pineda Ot Z87.891 PERSONAL HISTORY OF NICOTINE DEPENDENCE 02/20/2019 [facility] LASSITER, AMANDEEP Pineda Ot Z99.81 DEPENDENCE ON SUPPLEMENTAL OXYGEN 02/21/2019 CHADWICK LASSITER, AMANDEEP Pineda Ot M47.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 02/21/2019 [facility] AM[facility] Pineda Ot S12.110A ANTERIOR DISPLACED TYPE II DENS FRACTURE 02/21/2019 CHADWICK LASSITER, AMANDEEP Pineda Ot W19.XXXA UNSPECIFIED FALL, INITIAL ENCOUNTER 03/12/2019 CHADWICK LASSITER, AMANDEEP Pineda Ot R56.9 UNSPECIFIED CONVULSIONS 03/12/2019 [facility], AMANDEEP Pineda Ot F17.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, UNSPECIFIED, UNCOMP 03/12/2019 [facility] AMANDEEP Pineda Ot J44.9 CHRONIC OBSTRUCTIVE PULMONARY DISEASE, U 03/12/2019 [facility] AMANDEEP Pineda Ot R63.4 ABNORMAL WEIGHT LOSS 03/12/2019 [facility] AMANDEEP Pineda Ot J44.9 CHRONIC OBSTRUCTIVE PULMONARY DISEASE, U 03/12/2019 [facility] AMANDEEP Pineda Ot R63.4 ABNORMAL WEIGHT LOSS 03/12/2019 [facility], AMANDEEP Pineda Ot R63.4 ABNORMAL WEIGHT LOSS 03/12/2019 [facility], AMANDEEP Pineda Ot G40.909 EPILEPSY, UNSP, NOT INTRACTABLE, WITHOUT 03/12/2019 [facility] AMANDEEP Pineda Ot J44.9 CHRONIC OBSTRUCTIVE PULMONARY DISEASE, U 03/12/2019 [facility] AMANDEEP Pineda Ot E87.1 HYPO-OSMOLALITY AND HYPONATREMIA 03/12/2019 CHADWICK LASSITERAMANDEEP Ot G40.909 EPILEPSY, UNSP, NOT INTRACTABLE, WITHOUT 03/12/2019 [facility], AMANDEEP Pineda Ot J44.9 CHRONIC OBSTRUCTIVE PULMONARY DISEASE, U 03/12/2019 [facility] AMANDEEP Pineda Ot G40.909 EPILEPSY, UNSP, NOT INTRACTABLE, WITHOUT 03/12/2019 [facility] Ot J34.89 OTHER SPECIFIED DISORDERS [...] OBSTRUCTIVE PULMONARY DISEASE, U 03/12/2019 NINA ANAYA LEAN SIX SIGMA BLACK BELT Ot M79.604 PAIN IN RIGHT LEG 03/12/2019 NINA ANAYA LEAN SIX SIGMA BLACK BELT Ot M79.605 PAIN IN LEFT LEG 03/12/2019 NINA ANAYA LEAN SIX SIGMA BLACK BELT Ot M79.89 OTHER SPECIFIED SOFT TISSUE DISORDERS 03/12/2019 NINA ANAYA LEAN SIX SIGMA BLACK BELT Ot R91.8 OTHER NONSPECIFIC ABNORMAL FINDING OF DAVID 03/12/2019 SIVA RESENDIZP Ot C34.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, LEFT B 03/12/2019 SIVA RESENDIZ ENGLISH TEACHER Ot C79.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 03/12/2019 AMANDEEP GENAO DO Ot B35.1 TINEA UNGUIUM 03/12/2019 SIVA RESENDIZ ENGLISH TEACHER Ot C34.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, LEFT B 03/12/2019 SIVA RESENDIZ Ot C79.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 03/12/2019 SIVA RESENDIZ Ot C34.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, LEFT B 03/12/2019 SIVA RESENDIZ Ot C34.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, LEFT B 03/12/2019 SIVA RESENDIZ Ot C79.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 03/12/2019 JOSEBRAYAN AMANDEEP LASSITER Ot M43.12 SPONDYLOLISTHESIS, CERVICAL REGION 03/12/2019 [facility] AMANDEEP LASSITER Ot M47.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 03/12/2019 [facility]ASSITER Ot S19.9XXA UNSPECIFIED INJURY OF NECK, INITIAL ENCO 03/12/2019 SIVA RESENDIZ Ot C34.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, LEFT B 03/12/2019 SIVA RESENDIZ Ot C79.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 03/12/2019 [facility] M19.011 PRIMARY OSTEOARTHRITIS, RIGHT SHOULDER 03/12/2019 [facility] Ot M79.621 PAIN IN RIGHT UPPER ARM 03/12/2019 [facility] Ot S79.911A UNSPECIFIED INJURY OF RIGHT HIP, INITIAL 03/12/2019 [facility] LASSITERAMANDEEP Ot W19.XXXA UNSPECIFIED FALL, INITIAL ENCOUNTER 03/12/2019 JOSEBRAYAN AMANDEEP LASSITER Ot R05 COUGH 03/12/2019 [facility] LASSITERAMANDEEP Ot R91.8 OTHER NONSPECIFIC ABNORMAL FINDING OF DAVID 03/12/2019 [facility] Ot Z95.828 PRESENCE OF OTHER VASCULAR IMPLANTS AND 03/12/2019 SIVA RESENDIZ Ot J98.11 ATELECTASIS 03/12/2019 SIVA RESENDIZ Ot M43.12 SPONDYLOLISTHESIS, CERVICAL REGION 03/12/2019 SIVA RESENDIZ Ot M47.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 03/12/2019 SIVA RESENDIZ Ot S12.190A OTH DISP FX OF SECOND CERVICAL VERTEBRA, 03/12/2019 SIVA RESENDIZ ENGLISH TEACHER Ot W19.XXXA UNSPECIFIED FALL, INITIAL ENCOUNTER 03/12/2019 SIVA RESENDIZ ENGLISH TEACHER Ot Z95.828 PRESENCE OF OTHER VASCULAR IMPLANTS AND 03/12/2019 NINA ANAYA APRN Ot C34.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, LEFT B 03/12/2019 NINA ANAYA LEAN SIX SIGMA BLACK BELT Ot F17.201 NICOTINE DEPENDENCE, UNSPECIFIED, IN REM 03/12/2019 NINA ANAYA LEAN SIX SIGMA BLACK BELT Ot I25.10 ATHSCL HEART DISEASE OF [place] CORONARY 03/12/2019 NINA ANAYA APRN Ot I70.0 [...] CAR Ot I25.10 ATHSCL HEART DISEASE OF [place] CORONARY 03/12/2019 EFRAIN RESENDIZBRENDA Jennifer ENGLISH TEACHER Ot I70.0 ATHEROSCLEROSIS OF [place] 03/12/2019 EF[facility]IN RESENDIZBRENDA Jennifer ROSASP Ot J43.9 EMPHYSEMA, UNSPECIFIED 03/12/2019 SIVA RESENDIZP Ot N28.1 CYST OF KIDNEY, ACQUIRED 03/12/2019 SIVA RESENDIZP Ot Z01.89 ENCOUNTER FOR OTHER SPECIFIED SPECIAL EX 03/12/2019 RESENDIZEFRAINBRENDA Rodriguez ENGLISH TEACHER Ot Z79.51 OCCUPATIONAL ANALYST (CURRENT) USE OF INHALED STERO 03/12/2019 EFRAIN RESENDIZBRENDA Jennifer CAR Ot Z85.118 PERSONAL HISTORY OF MALIGNANT NEOPLASM O 03/12/2019 [facility] LASSITERAMANDEEP Ot M19.012 PRIMARY OSTEOARTHRITIS, LEFT SHOULDER 03/12/2019 [facility] Ot S49.92XA UNSP INJURY OF LEFT SHOULDER AND UPPER A 03/12/2019 [facility] Ot W19.XXXA UNSPECIFIED FALL, INITIAL ENCOUNTER 03/12/2019 [facility] LASSITERAMANDEEP Ot M47.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 03/12/2019 [facility] Ot S12.110D ANT DISPL TYPE II DENS FRACTURE, SUBS FO 03/12/2019 [facility] LASSITERAMANDEEP Ot W19.XXXD UNSPECIFIED FALL, SUBSEQUENT ENCOUNTER 03/12/2019 [facility] LASSITERAMANDEEP Ot M47.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 03/12/2019 [facility] S12.110A ANTERIOR DISPLACED TYPE II DENS FRACTURE 03/12/2019 [facility] Ot W19.XXXA UNSPECIFIED FALL, INITIAL ENCOUNTER [...] CHEMOTHERAP 03/12/2019 STEPHEN PRICE Ot Z79.899 OTHER OCCUPATIONAL ANALYST (CURRENT) DRUG THERAPY 03/12/2019 STEPHEN PRICE Ot [...] PAIN IN LEFT LEG 03/12/2019 NINA ANAYA LEAN SIX SIGMA BLACK BELT Ot M79.89 OTHER SPECIFIED SOFT TISSUE DISORDERS 03/12/2019 NINA ANAYA LEAN SIX SIGMA BLACK BELT Ot R91.8 OTHER NONSPECIFIC ABNORMAL FINDING OF DAVID 03/12/2019 SIVA RESENDIZP Ot C34.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, LEFT B 03/12/2019 SIVA RESENDIZP Ot C79.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 03/12/2019 AMANDEEP GENAO DO Ot B35.1 TINEA UNGUIUM 03/12/2019 SIVA RESENDIZ ENGLISH TEACHER Ot C34.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, [...] SECOND CERVICAL VERTEBRA, 03/12/2019 RESENDIZ, HILAH S ENGLISH TEACHER Ot W19.XXXA UNSPECIFIED FALL, INITIAL ENCOUNTER 03/12/2019 SIVA RESENDIZ JOCELINE Ot Z95.828 PRESENCE OF OTHER VASCULAR IMPLANTS AND 03/12/2019 NINA ANAYA APRN Ot C34.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, LEFT B 03/12/2019 INNA ANAYA APRN Ot F17.201 NICOTINE DEPENDENCE, UNSPECIFIED, IN REM 03/12/2019 NINA ANAYA APRN Ot I25.10 ATHSCL HEART DISEASE OF [place] CORONARY 03/12/2019 NINA ANAYA APRN Ot I70.0 [...] CAR Ot I25.10 ATHSCL HEART DISEASE OF [place] CORONARY 03/12/2019 SIVA RESENDIZP Ot I70.0 ATHEROSCLEROSIS OF [place] 03/12/2019 SIVA RESENDIZP Ot J43.9 EMPHYSEMA, UNSPECIFIED 03/12/2019 SIVA RESENDIZ Ot N28.1 CYST OF KIDNEY, ACQUIRED 03/12/2019 SIVA RESENDIZP Ot Z01.89 ENCOUNTER FOR OTHER SPECIFIED SPECIAL EX 03/12/2019 EFRAIN RESENDIZBRENDA Jennifer ROSASP Ot Z79.51 HALF-WAY (CURRENT) USE OF INHALED STERO 03/12/2019 SIVA [...] M47.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 03/12/2019 [facility] Ot S12.110A ANTERIOR DISPLACED TYPE II DENS FRACTURE 03/12/2019 [facility] AMANDEEP Ot W19.XXXA UNSPECIFIED FALL, INITIAL ENCOUNTER [...] 03/12/2019 DEE BOBAN N Ot Z79.899 OTHER OCCUPATIONAL ANALYST (CURRENT) DRUG THERAPY 03/12/2019 DEE SABASAN N Ot Z87.891 PERSONAL HISTORY OF NICOTINE DEPENDENCE 03/16/2019 HÉCTOR NINA E LEAN SIX SIGMA BLACK BELT Ot C34.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, LEFT B 03/16/2019 HÉCTOR, NINA E LEAN SIX SIGMA BLACK BELT Ot F17.201 NICOTINE DEPENDENCE, UNSPECIFIED, IN REM 03/16/2019 HÉCTOR NINA E LEAN SIX SIGMA BLACK BELT Ot J18.9 PNEUMONIA, UNSPECIFIED ORGANISM 03/16/2019 HÉCTOR, NINA E LEAN SIX SIGMA BLACK BELT Ot J44.1 CHRONIC OBSTRUCTIVE PULMONARY DISEASE W 03/16/2019 HÉCTOR, NINA E LEAN SIX SIGMA BLACK BELT Ot J96.20 ACUTE AND CHR RESP FAILURE, UNSP W HYPOX 03/19/2019 HÉCTOR NINA E LEAN SIX SIGMA BLACK BELT Ot C34.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, LEFT B 03/19/2019 HÉCTOR, NINA E LEAN SIX SIGMA BLACK BELT Ot F17.201 NICOTINE DEPENDENCE, UNSPECIFIED, IN REM 03/19/2019 HÉCTOR, NINA E LEAN SIX SIGMA BLACK BELT Ot J18.9 PNEUMONIA, UNSPECIFIED ORGANISM 03/19/2019 HÉCTOR NINA E LEAN SIX SIGMA BLACK BELT Ot J44.1 CHRONIC OBSTRUCTIVE PULMONARY DISEASE W 03/19/2019 HÉCTOR, NINA E LEAN SIX SIGMA BLACK BELT Ot J96.20 ACUTE AND CHR RESP FAILURE, [...] 03/30/2019 DEE BOBAN N Ot Z79.899 OTHER OCCUPATIONAL ANALYST (CURRENT) DRUG THERAPY 03/30/2019 STEPHEN PRICE Ot Z87.891 PERSONAL HISTORY OF NICOTINE DEPENDENCE 03/30/2019 STEPHEN PRICE Ot Z92.21 PERSONAL HISTORY OF ANTINEOPLASTIC CHEMO 04/04/2019 STEPHEN PRIEC Ot C34.12 MALIGNANT NEOPLASM OF UPPER LOBE, LEFT B 04/04/2019 STEPHEN PRICE Ot C79.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 04/04/2019 STEPHEN PRICE Ot E78.5 HYPERLIPIDEMIA, UNSPECIFIED 04/04/2019 STEPHEN PRICE Ot G40.909 EPILEPSY, UNSP, NOT INTRACTABLE, WITHOUT 04/04/2019 STEPHEN PRICE Ot J43.9 EMPHYSEMA, UNSPECIFIED 04/04/2019 STEPHEN PRICE Ot Z51.11 ENCOUNTER FOR ANTINEOPLASTIC CHEMOTHERAP 04/04/2019 STEPHEN PRICE Ot Z79.899 OTHER HALF-WAY (CURRENT) DRUG THERAPY 04/04/2019 STEPHEN PRICE Ot [...] RESENDIZP Ot I25.10 ATHSCL HEART DISEASE OF [place] CORONARY 04/13/2019 SIVA RESENDIZP Ot I70.0 ATHEROSCLEROSIS OF [place] 04/13/2019 SIVA RESENDIZP Ot J43.9 EMPHYSEMA, UNSPECIFIED 04/13/2019 SIVA RESENDIZ Ot N28.1 CYST OF KIDNEY, ACQUIRED 04/13/2019 SIVA RESENDIZP Ot Z01.89 ENCOUNTER FOR OTHER SPECIFIED SPECIAL EX 04/13/2019 SIVA RESENDIZ ENGLISH TEACHER Ot Z79.51 HALF-WAY (CURRENT) USE OF INHALED STERO 04/13/2019 SIVA RESENDIZ ENGLISH TEACHER Ot Z85.118 PERSONAL HISTORY OF MALIGNANT NEOPLASM [...] 04/22/2019 MARY RIOS, STEFAN Zuniga Ot Z79.51 OCCUPATIONAL ANALYST (CURRENT) USE OF INHALED STERO 04/22/2019 MARY [...] CHEMOTHERAP 05/10/2019 STEPHEN PRICE Ot Z79.899 OTHER OCCUPATIONAL ANALYST (CURRENT) DRUG THERAPY 05/10/2019 STEPHEN PRICE Ot [...] 05/19/2019 GELLENDER DO, AMANDEEP Pineda Ot Z79.891 HALF-WAY (CURRENT) USE OF OPIATE ANALGE 05/19/2019 GELLENDER DO, AMANDEEP Pineda Ot Z79.899 OTHER OCCUPATIONAL ANALYST (CURRENT) DRUG THERAPY 05/19/2019 GELLENDER DO, AMANDEEP [...] 05/19/2019 GELLENDER DO, AMANDEEP Pineda Ot Z79.891 OCCUPATIONAL ANALYST (CURRENT) USE OF OPIATE ANALGE 05/19/2019 GELLENDER DO, AMANDEEP Pineda Ot Z79.899 OTHER OCCUPATIONAL ANALYST (CURRENT) DRUG THERAPY 05/19/2019 GELLENDER DO, AMANDEEP [...] UNSPECIFIED FALL, INITIAL ENCOUNTER 05/31/2019 SIVA RESENDIZ ENGLISH TEACHER Ot G25.5 OTHER [place] 05/31/2019 SIVA RESENDIZ ENGLISH TEACHER Ot 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 MAXILLARY SINUSITIS 05/31/2019 SIVA RESENDIZ ENGLISH TEACHER Ot R 51 HEADACHE 05/31/2019 SIVA RESENDIZ ENGLISH TEACHER Ot W19.XXXA UNSPECIFIED FALL, INITIAL ENCOUNTER 06/01/2019 SIVA RESENDIZ ENGLISH TEACHER Ot G25.5 OTHER [place] 06/01/2019 SIVA RESENDIZ ENGLISH TEACHER Ot 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 MAXILLARY SINUSITIS 06/01/2019 SIVA RESENDIZ ENGLISH TEACHER Ot R 51 HEADACHE 06/01/2019 SIVA RESENDIZ ENGLISH TEACHER Ot W19.XXXA UNSPECIFIED FALL, INITIAL ENCOUNTER 06/04/2019 MARY RIOS, STEFAN Zuniga Ot C34.90 MALIGNANT NEOPLASM OF [facility]SP [facility] 06/04/2019 MARY RIOS, STEFAN Zuniga Ot E78.00 [...] Z87.891 PERSONAL HISTORY OF NICOTINE DEPENDENCE 06/04/2019 TSEFAN HERNANDEZ MD Ot Z88.6 ALLERGY STATUS TO ANALGESIC AGENT STATUS 06/04/2019 STEFAN HERNANDEZ MD Ot Z99.81 DEPENDENCE ON SUPPLEMENTAL OXYGEN 06/07/2019 MYRNA MERCADO DO S Ot B91 SEQUELAE OF POLIOMYELITIS 06/07/2019 MYRNA MERCADO DO S Ot C34.12 MALIGNANT NEOPLASM OF UPPER LOBE, LEFT B 06/07/2019 MYRNA MERCADO DO S Ot C79.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 06/07/2019 MYRNA MERCADO DO S Ot E78.00 PURE HYPERCHOLESTEROLEMIA, UNSPECIFIED 06/07/2019 MYRNA MERCADO DO S Ot E87.1 HYPO-OSMOLALITY AND HYPONATREMIA 06/07/2019 ORENDER DO, MYRNA S Ot G40.909 EPILEPSY, UNSP, NOT INTRACTABLE, WITHOUT 06/07/2019 ORENDER DO, MYRNA S Ot G47.30 SLEEP APNEA, UNSPECIFIED 06/07/2019 ORENDER DO, MYRNA S Ot G62.9 POLYNEUROPATHY, UNSPECIFIED 06/07/2019 ORENDER DO, MYRNA S Ot I10 ESSENTIAL (PRIMARY) HYPERTENSION 06/07/2019 ORENDER DO, MYRNA S Ot I38 ENDOCARDITIS, VALVE UNSPECIFIED 06/07/2019 ORENDER DO, MYRNA S Ot J18.9 PNEUMONIA, UNSPECIFIED ORGANISM 06/07/2019 ORENDER DO, MYRNA S Ot J43.9 EMPHYSEMA, UNSPECIFIED 06/07/2019 ORENDER DO, MYRNA S Ot M19.91 PRIMARY OSTEOARTHRITIS, UNSPECIFIED SITE 06/07/2019 ORENDER DO, MYRNA S Ot M24.50 CONTRACTURE, UNSPECIFIED JOINT 06/07/2019 ORENDER DO, MYRNA S Ot R01.1 CARDIAC MURMUR, UNSPECIFIED 06/07/2019 ORENDER DO, MYRNA S Ot R06.03 ACUTE RESPIRATORY DISTRESS 06/07/2019 ORENDER DO, MYRNA S Ot R29.898 OT SYMPTOMS AND SIGNS INVOLVING THE MUS 06/07/2019 ORENDER DO, MYRNA S Ot Z87.01 PERSONAL HISTORY OF PNEUMONIA (RECURRENT 06/07/2019 ORENDER DO, MYRNA S Ot Z87.891 PERSONAL HISTORY OF NICOTINE DEPENDENCE 06/08/2019 GELLENDER DO, AMANDEEP Pineda Ot R56.9 [...] LOSS 06/08/2019 GELLENDER DO, AMANDEEP Pineda Ot G40.909 [...] SPECIFIED DISORDERS OF NOSE AND NA 06/08/2019 GELLENDER DO, AMANDEEP Pineda Ot S99.912A UNSPECIFIED INJURY OF LEFT ANKLE, INITIA 06/08/2019 GELLENDER DO, AMANDEEP Pineda Ot W19.XXXA UNSPECIFIED FALL, INITIAL ENCOUNTER 06/08/2019 [facility] AMANDEEP Pineda Ot Y99.8 OTHER EXTERNAL CAUSE STATUS 06/08/2019 GELLENDER DO, AMANDEEP Pineda Ot G40.909 EPILEPSY, UNSP, NOT INTRACTABLE, WITHOUT 06/08/2019 GELLENDER DO, AMANDEEP Pineda Ot R06.02 SHORTNESS OF BREATH 06/08/2019 [facility] AMANDEEP Pineda Ot R63.4 ABNORMAL [...] DEPENDENCE ON SUPPLEMENTAL OXYGEN 06/08/2019 RANI PACHECO DO, Ot J44. 9 CHRONIC OBSTRUCTIVE PULMONARY DISEASE, U 06/08/2019 RANI PACHECO DO Ot M25.559 PAIN IN UNSPECIFIED HIP 06/08/2019 RANI PACHECO DO Ot R91. 8 OTHER NONSPECIFIC ABNORMAL FINDING OF DAVID 06/08/2019 RANI PACHECO DO Ot Z72. 0 TOBACCO USE 06/08/2019 [facility], AMANDEEP Pineda Ot J44.9 CHRONIC OBSTRUCTIVE PULMONARY DISEASE, U 06/08/2019 NINA ANAYA APRN Ot M79.604 PAIN IN RIGHT LEG 06/08/2019 NINA ANAYA APRN Ot M79.605 PAIN IN LEFT LEG 06/08/2019 NINA ANAYA APRN Ot M79.89 OTHER SPECIFIED SOFT TISSUE DISORDERS 06/08/2019 NINA ANAYA LEAN SIX SIGMA BLACK BELT Ot R91.8 OTHER NONSPECIFIC ABNORMAL FINDING OF DAVID 06/08/2019 SIVA RESENDIZ S ENGLISH TEACHER Ot C34.12 MALIGNANT NEOPLASM OF UPPER LOBE, LEFT B 06/08/2019 SIVA RESENDIZ S ENGLISH TEACHER Ot C79.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 06/08/2019 [facility], AMANDEEP Pineda Ot B35.1 TINEA UNGUIUM 06/08/2019 SIVA RESENDIZ S ENGLISH TEACHER Ot C34.12 MALIGNANT NEOPLASM OF UPPER LOBE, LEFT B 06/08/2019 SIVA RESENDIZ S ENGLISH TEACHER Ot C79.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 06/08/2019 SIVA RESENDIZ S ENGLISH TEACHER Ot C34.12 MALIGNANT NEOPLASM OF UPPER LOBE, LEFT B 06/08/2019 SIVA RESENDIZ S ENGLISH TEACHER Ot C34.12 MALIGNANT NEOPLASM OF UPPER LOBE, LEFT B 06/08/2019 MARTÍN HILBRENDA S ENGLISH TEACHER Ot C79.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 06/08/2019 [facility], AMANDEEP Pineda Ot M43.12 SPONDYLOLISTHESIS, CERVICAL REGION 06/08/2019 [facility] Ot M47.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 06/08/2019 [facility] Ot S19.9XXA UNSPECIFIED INJURY OF NECK, INITIAL ENCO 06/08/2019 SIVA RESENDIZ S ENGLISH TEACHER Ot C34.12 MALIGNANT NEOPLASM OF UPPER LOBE, LEFT B 06/08/2019 SIVA RESENDIZ S ENGLISH TEACHER Ot C79.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 06/08/2019 [facility] Ot M19.011 PRIMARY OSTEOARTHRITIS, RIGHT SHOULDER 06/08/2019 [facility] Ot M79.621 PAIN IN RIGHT UPPER ARM 06/08/2019 AMANDEEP GENAO DO Ot S79.911A UNSPECIFIED INJURY OF RIGHT HIP, INITIAL 06/08/2019 AMANDEEP GENAO DO Ot W19.XXXA UNSPECIFIED FALL, INITIAL ENCOUNTER 06/08/2019 [facility] LASSITER, AMANDEEP Pineda Ot R05 COUGH 06/08/2019 AMANDEEP GENAO DO Ot R91.8 OTHER NONSPECIFIC ABNORMAL FINDING OF DAVID 06/08/2019 AMANDEEP GENAO DO Ot Z95.828 PRESENCE OF OTHER VASCULAR IMPLANTS AND 06/08/2019 SIVA RESENDIZ S ENGLISH TEACHER Ot J98.11 ATELECTASIS 06/08/2019 SIVA RESENDIZ S ENGLISH TEACHER Ot M43.12 SPONDYLOLISTHESIS, CERVICAL REGION 06/08/2019 SIVA RESENDIZ S ENGLISH TEACHER Ot M47.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 06/08/2019 SIVA RESENDIZ S ENGLISH TEACHER Ot S12.190A OTH DISP FX OF SECOND CERVICAL VERTEBRA, 06/08/2019 SIVA RESENDIZ S ENGLISH TEACHER Ot W19.XXXA UNSPECIFIED FALL, INITIAL ENCOUNTER 06/08/2019 SIVA RESENDIZ ENGLISH TEACHER Ot Z95.828 PRESENCE OF OTHER VASCULAR IMPLANTS AND 06/08/2019 NINA ANAYA APRN Ot C34.12 MALIGNANT NEOPLASM OF UPPER LOBE, LEFT B 06/08/2019 NINA ANAYA LEAN SIX SIGMA BLACK BELT Ot F17.201 NICOTINE DEPENDENCE, UNSPECIFIED, IN REM 06/08/2019 NINA ANAYA LEAN SIX SIGMA BLACK BELT Ot I25.10 ATHSCL HEART DISEASE OF [place] CORONARY 06/08/2019 NINA ANAYA LEAN SIX SIGMA BLACK BELT Ot I70.0 ATHEROSCLEROSIS OF [place] 06/08/2019 NINA ANAYA LEAN SIX SIGMA BLACK BELT Ot J18.9 PNEUMONIA, UNSPECIFIED ORGANISM 06/08/2019 NINA ANAYA LEAN SIX SIGMA BLACK BELT Ot J43.9 EMPHYSEMA, UNSPECIFIED 06/08/2019 NINA ANAYA LEAN SIX SIGMA BLACK BELT Ot J96.20 ACUTE AND CHR RESP FAILURE, UNSP W HYPOX 06/08/2019 NINA ANAYA LEAN SIX SIGMA BLACK BELT Ot J98.4 OTHER DISORDERS OF LUNG 06/08/2019 NINA ANAYA LEAN SIX SIGMA BLACK BELT Ot R91.8 OTHER NONSPECIFIC ABNORMAL FINDING OF DAVID 06/08/2019 RANI PACHECO DO Ot C34. 12 MALIGNANT NEOPLASM OF UPPER LOBE, LEFT B 06/08/2019 JUNIOR LASSITERRANI Ot F17.201 NICOTINE DEPENDENCE, UNSPECIFIED, IN REM 06/08/2019 JUNIOR LASSITERRANI Ot J18. 9 PNEUMONIA, UNSPECIFIED ORGANISM 06/08/2019 JUNIOR LASSITERRANI Ot J44. 1 CHRONIC OBSTRUCTIVE PULMONARY DISEASE W 06/08/2019 JUNIOR LASSITERRANI Ot J96. 20 ACUTE AND CHR RESP FAILURE, UNSP W HYPOX 06/08/2019 JUNIOR LASSITERRANI Ot R91. 8 OTHER NONSPECIFIC ABNORMAL FINDING OF DAVID 06/08/2019 JUNIOR LASSITERRANI Ot Z95.828 PRESENCE OF OTHER VASCULAR IMPLANTS AND 06/08/2019 STEPHEN PRICE Ot C34.12 MALIGNANT NEOPLASM OF UPPER LOBE, LEFT B 06/08/2019 STEPHEN PRICE Ot C79.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 06/08/2019 STEPHEN PRICE Ot Z01.89 ENCOUNTER FOR OTHER SPECIFIED SPECIAL EX 06/08/2019 NINA ANAYA APRN Ot C34.12 MALIGNANT NEOPLASM OF UPPER LOBE, LEFT B 06/08/2019 NINA ANAYA LEAN SIX SIGMA BLACK BELT Ot F17.201 NICOTINE DEPENDENCE, UNSPECIFIED, IN REM 06/08/2019 NINA ANAYA LEAN SIX SIGMA BLACK BELT Ot J18.9 PNEUMONIA, UNSPECIFIED ORGANISM 06/08/2019 NINA ANAYA LEAN SIX SIGMA BLACK BELT Ot J44.1 CHRONIC OBSTRUCTIVE PULMONARY DISEASE W 06/08/2019 NINA ANAYA LEAN SIX SIGMA BLACK BELT Ot J96.20 ACUTE AND CHR RESP FAILURE, UNSP W HYPOX 06/08/2019 AMANDEEP GENAO DO Ot R56.9 UNSPECIFIED CONVULSIONS 06/08/2019 SIVA RESENDIZP Ot I25.10 ATHSCL HEART DISEASE OF [place] CORONARY 06/08/2019 SIVA RESENDIZ ENGLISH TEACHER Ot I70.0 ATHEROSCLEROSIS OF [place] 06/08/2019 SIVA RESENDIZ ENGLISH TEACHER Ot J43.9 EMPHYSEMA, UNSPECIFIED 06/08/2019 SIVA RESENDIZ ENGLISH TEACHER Ot N28.1 CYST OF KIDNEY, ACQUIRED 06/08/2019 SIVA RESENDIZ ENGLISH TEACHER Ot Z01.89 ENCOUNTER FOR OTHER SPECIFIED SPECIAL EX 06/08/2019 RESENDIZ, HILAH S ENGLISH TEACHER Ot Z79.51 OCCUPATIONAL ANALYST (CURRENT) USE OF INHALED STERO 06/08/2019 SIVA RESENDIZ ENGLISH TEACHER Ot Z85.118 PERSONAL HISTORY OF MALIGNANT NEOPLASM O 06/08/2019 GELLENDER DO, AMANDEEP Miriam Ot M19.012 PRIMARY OSTEOARTHRITIS, LEFT SHOULDER 06/08/2019 GELLENDER DO, AMANDEEP Miriam Ot S49.92XA UNSP INJURY OF LEFT SHOULDER AND UPPER A 06/08/2019 GELLENDER DO, AMANDEEP Miriam Ot W19.XXXA UNSPECIFIED FALL, INITIAL ENCOUNTER 06/08/2019 GELLENDER DO, AMANDEEP Pineda Ot M47.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 06/08/2019 GELLENDER DO, AMANDEEP Miriam Ot S12.110D ANT DISPL TYPE II DENS FRACTURE, SUBS FO 06/08/2019 GELLENDER DO, AMANDEEP Pineda Ot W19.XXXD UNSPECIFIED FALL, SUBSEQUENT ENCOUNTER 06/08/2019 GELLENDER DO, AMANDEEP Miriam Ot M47.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 06/08/2019 GELLENDER DO, AMANDEEP Miriam Ot S12.110A ANTERIOR DISPLACED TYPE II DENS FRACTURE 06/08/2019 GELLENDER DO, AMANDEEP Miriam Ot W19.XXXA [...] CHEMOTHERAP 06/08/2019 STEPHEN PRICE Ot Z79.899 OTHER OCCUPATIONAL ANALYST (CURRENT) DRUG THERAPY 06/08/2019 STEPHEN PRICE Ot Z87.891 PERSONAL HISTORY OF NICOTINE DEPENDENCE 06/08/2019 STEPHEN PRICE Ot Z92.21 PERSONAL HISTORY OF ANTINEOPLASTIC CHEMO 06/08/2019 SIVA RESENDIZP Ot M19.072 PRIMARY OSTEOARTHRITIS, LEFT ANKLE AND F 06/08/2019 RESENDIZSIVA Rodriguez ENGLISH TEACHER Ot W19.XXXA UNSPECIFIED FALL, INITIAL ENCOUNTER 06/08/2019 SIVA RESENDIZ ENGLISH TEACHER Ot G25.5 OTHER [place]ORE[place] 06/08/2019 SIVA RESENDIZ ENGLISH TEACHER Ot 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 MAXILLARY SINUSITIS 06/08/2019 SIVA RESENDIZ ENGLISH TEACHER Ot R 51 HEADACHE 06/08/2019 SIVA RESENDIZ ENGLISH TEACHER Ot W19.XXXA UNSPECIFIED FALL, INITIAL ENCOUNTER 06/09/2019 GELLENDER DO, AMANDEEP Pineda Ot M47.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 06/09/2019 GELLENDER DO, AMANDEEP Pineda Ot S12.110A ANTERIOR DISPLACED TYPE II DENS FRACTURE 06/09/2019 GELLENDER DO, AMANDEEP Pineda Ot W19.XXXA UNSPECIFIED FALL, INITIAL ENCOUNTER 06/10/2019 [...] CHEMOTHERAP 06/10/2019 STEPHEN PRICE Ot Z79.899 OTHER OCCUPATIONAL ANALYST (CURRENT) DRUG THERAPY 06/10/2019 STEPHEN PRICE Ot Z87.891 PERSONAL HISTORY OF NICOTINE DEPENDENCE 06/10/2019 STEPHEN PRICE Ot Z92.21 PERSONAL HISTORY OF ANTINEOPLASTIC CHEMO 06/11/2019 GELLENDER DO, AMANDEEP Pineda Ot C78.00 SECONDARY MALIGNANT NEOPLASM OF UNSPECIF 06/11/2019 GELLENDER DO, AMANDEEP Pineda Ot E78.00 PURE HYPERCHOLESTEROLEMIA, UNSPECIFIED 06/11/2019 GELLENDER DO, AMANDEEP Pineda Ot E78.1 PURE HYPERGLYCERIDEMIA 06/11/2019 GELLENDER DO, AMANDEEP Pineda Ot E78.5 HYPERLIPIDEMIA, UNSPECIFIED 06/11/2019 GELLENDER DO, AMANDEEP Pineda Ot F17.210 NICOTINE DEPENDENCE, CIGARETTES, UNCOMPL 06/11/2019 GELLENDER DO, AMANDEEP Miriam Ot G40.909 EPILEPSY, UNSP, NOT INTRACTABLE, WITHOUT 06/11/2019 GELLENDER DO, AMANDEEP Miriam Ot G62.9 POLYNEUROPATHY, UNSPECIFIED 06/11/2019 GELLENDER DO, AMANDEEP Miriam Ot I10 ESSENTIAL (PRIMARY) HYPERTENSION 06/11/2019 GELLENDER DO, AMANDEEP Pineda Ot J30.9 ALLERGIC RHINITIS, UNSPECIFIED 06/11/2019 GELLENDER DO, AMANDEEP Pineda Ot J44.9 CHRONIC OBSTRUCTIVE PULMONARY DISEASE, U 06/11/2019 GELLENDER DO, AMANDEEP Miriam Ot M19.90 UNSPECIFIED OSTEOARTHRITIS, UNSPECIFIED 06/11/2019 GELLENDER DO, AMANDEEP Miriam Ot S82.302A UNSP FRACTURE OF LOWER END OF LEFT TIBIA 06/11/2019 GELLENDER DO, AMANDEEP Miriam Ot S82.832A OTH FRACTURE OF UPPER AND LOWER END OF L 06/11/2019 GELLENDER DO, AMANDEEP Pineda Ot Z79.891 OCCUPATIONAL ANALYST (CURRENT) USE OF OPIATE ANALGE 06/11/2019 GELLENDER DO, AMANDEEP Pineda Ot Z79.899 OTHER OCCUPATIONAL ANALYST (CURRENT) DRUG THERAPY 06/11/2019 GELLENDER DO, AMANDEEP Pineda Ot Z83.3 FAMILY HISTORY OF DIABETES MELLITUS 06/11/2019 GELLENDER DO, AMANDEEP Pineda Ot Z85.830 PERSONAL HISTORY OF MALIGNANT NEOPLASM O 06/11/2019 GELLENDER DO, AMANDEEP Pineda Ot Z88.6 ALLERGY STATUS TO ANALGESIC AGENT STATUS 06/11/2019 GELLENDER DO, AMANDEEP Pineda Ot Z92.21 PERSONAL HISTORY OF ANTINEOPLASTIC CHEMO 06/14/2019 SIVA RESENDIZP Ot I25.10 ATHSCL HEART DISEASE OF [place] CORONARY 06/14/2019 SIVA RESENDIZP Ot I70.0 ATHEROSCLEROSIS OF [place] 06/14/2019 SIVA RESENDIZP Ot J43.9 EMPHYSEMA, UNSPECIFIED 06/14/2019 SIVA RESENDIZP Ot N28.1 CYST OF KIDNEY, ACQUIRED 06/14/2019 SIVA RESENDIZP Ot Z01.89 ENCOUNTER FOR OTHER SPECIFIED SPECIAL EX 06/14/2019 SIVA RESENDIZP Ot Z79.51 HALF-WAY (CURRENT) USE OF INHALED STERO 06/14/2019 SIVA RESENDIZP Ot Z85.118 PERSONAL HISTORY OF MALIGNANT NEOPLASM O Procedures Code Description [place] [address] OXIMETRY 08/19/2012 07417 OXIMETRY 12/10/2013 [id number] RE SPIRATORY VENTILATION, 24- 96 CONSECUTI 03/09/2017 [id number] EX CISION OF THORAX LYMPHATIC, PERC ENDO 05/21/2017 [id number] EX TRACTION OF L LOW LUNG LOBE, PERC ENDO 05/21/[id number] [place] OF RIGHT MIDDLE LUNG LOBE, ENDO 07/23/2018 [id number] EX TIRPATION OF MATTER FROM RIGHT MAIN BR 07/23/2018 [id number] EX TIRPATION OF MATTER FROM LEFT MAIN BRO 07/23/2018 [id number] EX TRACTION OF RIGHT MIDDLE LUNG LOBE, EN 07/23/2018 [id number] RE PAIR SCALP SKIN, EXTERNAL APPROACH 02/18/2019 [id number] SISTANCE WITH RESPIRATORY VENTILATION, 04/04/2019 Results Test [...] . NRG Bacterial blood culture SEE COMMEN [facility] Comprehensive metabolic panel - 03/09/17 16:35 [...] TEXT EXTERNAL SENSITIVITY REPORTED AT 1704, 1 --18 NRG QUANTITY OF GROWTH Moderate Growth NRG FREE TEXT ENTRY 2 PLUS NORMAL MAGED NRG Bacterial sputum culture [id number] NR Bacterial susceptibility panel - 7 05:12 [...] cells detection by light microscopy S LIGHT NR Comprehensive metabolic panel - 04/07/17 05:25 Serum [...] - 05/20/17 16:15 Bacterial blood culture NG NR Blood lactic acid measurement (moles/vol ume) - 05/20/17 16:35 Blood lactic acid measurement (moles/volume) 1.37 mmol/L 0.50-2.00 Bacterial blood culture - 05/20/17 16:35 Bacterial blood culture NG [facility] Complete blood count (CBC) with automate d [...] in bronchial specimen by aerob e culture [id number] NRG FTX;REPORTABLE SENSITIVITY REPORTED AT 1642, NRG [...] - 08/05/17 10:51 Bacterial blood culture NG NR Sputum Gram stain - 08/05/17 11:30 Sputum Gram stain rods NR Bacterial sputum culture - 08/05/17 11:3 0 FREE TEXT EXTERNAL SENSITIVITY REPORTED AT 1555, NR QUANTITY OF GROWTH Abundant Growth NR FREE TEXT ENTRY 2 PLUS NORMAL MAGED NR Bacterial sputum culture [id number] [facility] Bacterial susceptibility panel - 8 11:30 Gentamicin [...] INFLUENZA A AND B ANTIGENS BY IA [facility] Bacterial blood culture - 01/26/18 13:35 Bacterial blood culture NG [facility] Bacterial blood culture - 01/26/18 14:08 Bacterial blood culture NG [facility] Complete blood count (CBC) with automate d [...] INFLUENZA A AND B ANTIGENS BY IA [facility] Serum or plasma lithium measurement (mol es/volume) [...] 0.0-0.1 Whole blood basic metabolic panel - 05/18 04:05 Serum or plasma sodium measurement [...] 9.1 mg/dL 8.5-10.1 THYROID STIMULATING HORMONE - 12/18/18 0 5:10 THYROID STIMULATING HORMONE 0.44 u[iU]/mL [...] TYPES PRESENT NR QUANTITY OF GROWTH Isolated [facility] Bacterial blood culture [id number] [facility] Influenza virus A and B antigen detectio n - 04/21/18 15:02 FLU RESULT NEGATIVE FOR INFLUENZA A AND B ANTIGENS BY IA [facility] Bacterial blood culture - 04/21/18 15:15 Bacterial blood culture [facility] Complete blood count (CBC) with automate d [...] Blood lactic acid measurement (moles/vol ume) - 02/15/19 16:49 Blood lactic acid measurement (moles/volume) 0.66 [...] culture - 06/10/18 03:42 Bacterial blood culture [facility] Influenza virus A and B antigen detectio n - 06/10/18 03:45 FLU RESULT NEGATIVE FOR INFLUENZA A AND B ANTIGENS BY IA NRG Bacterial blood culture - 06/10/18 04:46 Bacterial blood culture NG NRG Complete urinalysis [...] - 07/21/18 22:35 Bacterial blood culture NG NRG DILANTIN (PHENYTOIN) - 07/21/18 22:35 DILANTIN PHEN 16.6 % 10.0-20.0 Influenza virus A and B antigen detectio n - 07/21/18 22:40 FLU RESULT NEGATIVE FOR INFLUENZA A AND B ANTIGENS BY IA NRG Bacterial blood culture - 07/21/18 22:51 Bacterial blood culture NG NRG Arterial blood gas measurement - 9 23:12 [...] - 10/05/18 03:20 Bacterial blood culture NG [facility] Complete blood count (CBC) with automate d [...] FOR INFLUENZA A AND B ANTIGENS BY [facility] Comprehensive metabolic panel - 12/01/18 02:25 Serum [...] [foz_us] 7.4-10.4 Automated blood complete blood count ([facility] panel - 04/08/19 05:35 Blood leukocytes automated [...] Status Pt. Type Provider Facility Loc./Unit Complaint [id number] 12/10/2013 15:08:00 12/10/2013 23:59: 59 CLS Outpatient DIPESH MIKE APRN [id number] 08/19/2012 13:16:00 Document Registration [id number] 06/08/2019 19:30:00 23:59:59 CLS Outpatient AMANDEEP GENAO DO Via [facility] 4TH L TIB/FIB FRACT URE [id number] 06/05/2019 02:11:00 14:00:00 DIS Outpatient MYRNA MERCADO DO Via [facility] 4TH COPD EXACERBATI ON [id number] 06/04/2019 10:35:00 23:59:59 CLS Outpatient DEESTEPHEN V ia [facility] ONC [id number] 05/28/2019 11:16:00 23:59:59 CLS Outpatient SIVA RESENDIZ 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 TEACHER Via [facility] RAD HEADACHE,FALLS [id number] 05/25/2019 15:37:00 23:59:59 CLS Outpatient 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 RESENDIZ ENGLISH TEACHER Via [facility] RAD [id number] 05/17/2019 20:00:00 15:30:00 DIS Inpatient AMANDEEP GENAO DO Via [facility] 4TH COPD W EXACERBA TION [id number] 04/04/2019 07:34:00 10:15:00 DIS Inpatient AMANDEEP GENAO DO Via [facility] 4TH RLL PNEUMONIA, RESP DISTRESS [id number] 03/19/2019 13:03:00 23:59:59 CLS Preadmit NINA ANAYA APRN Via [facility] RAD CHRONIC BRONCHITIS,COPD,PNEUMONIA,LUNG MASS,ASTHMA [id number] 03/15/2019 11:52:00 23:59:59 CLS Outpatient NINA ANAYA APRN Via [facility] RAD CHRONIC BRONCHITIS,PNEUMONIA,LUNG MASS,ASTHMA [id number] 02/18/2019 14:30:00 16:28:00 DIS Inpatient AMANDEEP GENAO DO Via [facility] 4TH PNEUMONIA;WEAKN ESS [id number] 02/11/2019 13:03:00 00:01:00 DIS Outpatient STEPHEN PRICE V ia [facility] ONC [id number] 02/15/2019 07:55:00 23:59:59 CLS Outpatient AMANDEEP GENAO DO Via [facility] RAD FALL,NECK PAIN [id number] 02/03/2019 16:14:00 23:59:59 CLS Outpatient AMANDEEP GENAO DO Via [facility] RAD FALL [id number] 01/18/2019 13:49:00 15:24:00 DIS Emergency FAVIAN COWART Via [facility] ER SOA [id number] 01/11/2019 12:07:00 23:59:59 CLS Outpatient SIVA RESENDIZ ENGLISH TEACHER Via [facility] CARD NON SMALL CELL LUNG CA [id number] 01/06/2019 13:33:00 23:59:59 CLS Outpatient AMANDEEP GENAO DO Via [facility] RAD FELL,HURT L KYLE ULDER [id number] 12/01/2018 02:02:00 05:05:00 DIS Emergency STEFAN HERNANDEZ MD Via [facility] ER SOB [id number] 11/25/2018 15:53:00 18:11:00 DIS Emergency 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 Via [facility] ER CONGESTION, COUGH [id number] 11/17/2018 15:42:00 23:59:59 CLS Outpatient AMANDEEP GENAO DO Via [facility] LAB SEIZURE [id number] 10/22/2018 13:30:00 00:01:00 DIS Outpatient STEPHEN PRICE [facility] ONC [id number] 10/05/2018 03:11:00 05:43:00 DIS Emergency MARY RIOS, STEFAN Zuniga Via [facility] ER SOB [id number] 09/14/2018 08:31:00 23:59:59 CLS Outpatient NINA ANAYA APRN Via [facility] RAD LUNG MASS,PNEUM ONIA [id number] 09/04/2018 18:22:00 12:14:00 DIS Inpatient AMANDEEP GENAO DO Via [facility] 4TH COPD EXACERBATI ON,AMS [id number] 09/04/2018 07:22:00 09:42:00 DIS Emergency STEFAN HERNANDEZ MD Via [facility] ER FALL [id number] 08/12/2018 17:27:00 19:01:00 DIS Emergency FATMATA NESTOR Via [facility] ER PAIN BEHIND LEFT EAR, T ROUBLE WALKING [id number] 07/20/2018 13:16:00 00:01:00 DIS Outpatient STEPHEN PRICE [facility] ONC [id number] 07/22/2018 00:00:00 13:50:00 DIS Inpatient AMANDEEP GENAO DO Via [facility] 4TH PNEUMONIA;LUNG CANCER ON CHEMO;COPD/ [id number] 07/14/2018 10:42:00 23:59:59 CLS Outpatient STEPHEN PRICE [facility] CARD NON SMALL CELL LUNG CA [id number] 07/02/2018 14:31:00 23:59:59 CLS Outpatient RANI PACHECO DO Via [facility] RAD NON SMALL CELL LUNG CAN CER [id number] 06/24/2018 20:23:00 14:26:00 DIS Inpatient AMANDEEP GENAO DO Miriam Via [facility] 4TH RLL PNA [id number] 06/22/2018 14:51:00 23:59:59 CLS Outpatient SIVA RESENDIZ Via [facility] RAD [id number] 06/10/2018 04:35:00 15:30:00 DIS Inpatient BROOKEAMANDEEP SAUCEDO DO Via [facility] 4TH RLL PNEUMONIA C OPD EXACERBATION [id number] 05/15/2018 13:27:00 14:15:00 DIS Inpatient JAMIR ELLISON DO, V [facility] 4TH NEUTROPENIA,PNEUMONIA,H YPONATREMIA [id number] 05/14/2018 14:53:00 23:59:59 CLS Outpatient CHADWICK AMANDEEP Pineda Via [facility] RAD COUGH [id number] 05/12/2018 15:17:00 23:59:59 CLS Outpatient AMANDEEP GENAO DO Via [facility] RAD FELL AND HURT R IGHT SHOULDER [id number] 05/05/2018 11:59:00 23:59:59 CLS Outpatient SIVA RESENDIZ Via [facility] CARD NON SMALL CELL LUNG CA [id number] 04/21/2018 16:40:00 16:35:00 DIS Inpatient BROOKEAMANDEEP SAUCEDO DO Via [facility] 4TH COPD,EPILEPSY,L EFT LOWER LOBE PNEUM;LUNG CA [id number] 03/30/2018 13:59:00 00:01:00 DIS Outpatient STEPHEN PRICE V ia [facility] ONC [id number] 03/24/2018 22:15:00 10:42:00 DIS Inpatient GELLENDER DO, AMANDEEP A Via [facility] 4TH SEIZURE DISORDER,GENERALIZED WEAKNESS,META LUNG CA [id number] 03/16/2018 20:46:00 11:22:00 DIS Inpatient AMANDEEP GENAO DO Via [facility] 4TH ORTHOSTATIC HYPOTENSION,HYPONATREMIA [id number] 03/09/2018 13:48:00 14:30:00 DIS Inpatient AMANDEEP GENAO DO Via [facility] 4TH WEAKNESS, C2 FR ACTURE [id number] 02/10/2018 12:15:00 23:59:59 CLS Outpatient SIVA RESENDIZ Via [facility] CARD NON SMALL CELL LUNG CA [id number] 01/26/2018 15:30:00 13:15:00 DIS Inpatient AMANDEEP GENAO DO Via [facility] 4TH PNENOMONIA,LUNG CANCER [id number] 01/19/2018 16:00:00 23:59:59 CLS Outpatient AMANDEEP GENAO DO Via [facility] RAD TRAUMA TO NECK [id number] 01/13/2018 12:15:00 23:59:59 CLS Preadmit NINA ANAYA APRN Via [facility] RAD PNEUMONIA,NON-S MALL CELL LUNG CANCER [id number] 01/08/2018 14:06:00 23:59:59 CLS Outpatient SIVA RESENDIZ Via [facility] RAD [id number] 12/26/2017 13:12:00 14:23:00 DIS Outpatient STEPHEN PRICE V ia [facility] ONC [id number] 12/24/2017 08:01:00 Brooke 09:47:00 DIS Outpatient KURT MOHR MD Via [facility] SDC CATARACT [id number] 12/22/2017 05:39:00 14:34:00 DIS Outpatient KURT MOHR MD Via [facility] PREOP CATARACT [id number] 12/12/2017 10:20:00 018 12:10:00 DIS Outpatient KURT MOHR MD Via [facility] SDC CATARACT LEFT EYE [id number] 12/10/2017 06:22:00 018 14:11:00 DIS Outpatient KURT MOHR MD Via [facility] PREOP CATARACT LEFT EYE [id number] 12/04/2017 09:11:00 018 13:15:00 DIS Inpatient AMANDEEP GENAO DO Via [facility] 4TH COPD ACUTE EXAC ERBATION [id number] 11/14/2017 20:45:00 018 14:28:00 DIS Inpatient JAMIR ELLISON DO, V [facility] 4TH RLL PNEUMONIA,ORTHOSTAT IC HYPOTENSION,HX LUNG CA [id number] 10/30/2017 11:00:00 018 23:59:59 CLS Outpatient SIVA RESENDIZ Via [facility] CARD NON-SMALL CELL LUNG CANCER,SECONDARY CANCER OF BON [id number] 10/07/2017 12:07:00 018 23:59:59 CLS Outpatient AMANDEEP GENAO DO Via [facility] LAB TOENAIL FUNGUS [id number] 09/18/2017 13:18:00 018 00:01:00 DIS Outpatient STEPHEN PRICE V [facility] ONC [id number] 09/24/2017 04:46:00 018 15:52:00 DIS Inpatient AMANDEEP GENAO DO Via [facility] 4TH PNEUMONIA,METAS TATIC LUNG CANCER ON CHEMO,COPD [id number] 09/04/2017 11:24:00 018 23:59:59 CLS Outpatient SIVA RESENDIZ Via [facility] LAB NON SMALL CELL LUNG CANCER [id number] 08/28/2017 17:10:00 018 23:59:59 CLS Outpatient NINA ANAYA APRN Via [facility] RAD LEG PAIN,LEG SW ELLING,LUNG MASS [id number] 08/05/2017 15:56:00 018 12:55:00 DIS Inpatient AMANDEEP GENAO DO Via [facility] 4TH COPD ACUTE EXACERBATION;RESP DISTRESS [id number] 08/05/2017 10:11:00 018 15:17:00 DIS Emergency VANESSA GUTHRIE MD Via [facility] ER SOB [id number] 07/29/2017 14:37:00 018 13:31:00 DIS Inpatient AMANDEEP GENAO DO Via [facility] 4TH PNEUMONIA,COPD EXACERBATION [id number] 07/28/2017 12:13:00 23:59:59 CLS Outpatient AMANDEEP GENAO DO Via [facility] RAD COUGH R05,CONGE STION R09.81 [id number] 07/24/2017 10:27:00 018 14:30:00 DIS Outpatient [facility]GRETE [facility] [id number] 07/23/2017 14:46:00 018 15:11:00 DIS Outpatient CÉSAR NEGRETE DO Via [facility] PREOP LUNG CA [id number] 07/09/2017 08:57:00 14:25:00 DIS Outpatient STEPHEN PRICE [facility] RAD R93.7 ABNORMAL MRI SCAN , BONE [id number] 07/03/2017 08:40:00 23:59:59 CLS Outpatient STEPHEN PRICE [facility] RAD R91.1 LUNG NODULE [id number] 07/02/2017 08:26:00 23:59:59 CLS Outpatient RANI PACHECO DO Via [facility] RAD ABN PET OF LUNG CA [id number] 06/17/2017 09:08:00 Brooke 23:59:59 CLS Outpatient RANI PACHECO DO Via [facility] RAD LUNG NODULE,LUNG MASS,T OBACCO USER [id number] 06/03/2017 09:00:00 018 23:59:59 CLS Preadmit AMANDEEP GENAO DO Via [facility] RAD SPICULATED NODU LE IN LT UPPER LOBE OF LUNG [id number] 05/20/2017 16:28:00 018 14:48:00 DIS Inpatient AMANDEEP GENAO DO Via [facility] 4TH PNEUMONIA BILAT LL,MASS L UPPER LOBE,FATIGUE,PAST- [id number] 04/30/2017 19:42:00 018 23:27:00 DIS Emergency NOREEN CHÁVEZ LEAN SIX SIGMA BLACK BELT Via [facility] ER NOSE BLEED [id number] 04/30/2017 15:18:00 018 18:22:00 DIS Emergency NOREEN CHÁVEZ LEAN SIX SIGMA BLACK BELT Via [facility] ER NOSE BLEED [id number] 04/14/2017 14:15:00 018 23:59:59 CLS Preadmit NINA ANAYA LEAN SIX SIGMA BLACK BELT Via [facility] PULM ASTHMA [id number] 04/06/2017 11:15:00 018 14:00:00 DIS Inpatient AMANDEEP GENAO DO Via [facility] 4TH BILAT LOWER LOB E PNA, COPD [id number] 04/03/2017 10:09:00 018 23:59:59 CLS Preadmit NINA ANAYA LEAN SIX SIGMA BLACK BELT Via [facility] RT ASTHMA [id number] 04/03/2017 10:07:00 018 23:59:59 CLS Preadmit NINA ANAYA LEAN SIX SIGMA BLACK BELT Via [facility] RAD TOBACCO USER [id number] 03/30/2017 07:03:00 018 12:25:00 DIS Inpatient AMANDEEP GENAO DO Via [facility] 4TH RESP, DISTRESS, COPD EXACERBATION [id number] 03/09/2017 18:31:00 017 14:50:00 DIS Inpatient AMANDEEP GENAO DO Via [facility] 4TH SEVERE SEPSIS,R EPIRATORY FAILURE,PNEUMONIA [id number] 03/05/2017 10:54:00 13:24:00 DIS Emergency [place] Harris Via [facility] ER SKIN ABRASIONS ON NOSE AND LEFT HAND--FALL [id number] 02/28/2017 13:26:00 14:45:00 DIS Inpatient CHADWICK AMANDEEP Miriam Via [facility] 4TH PNEUMONIA,COPD EXACERBATION [id number] 02/04/2017 15:03:00 23:59:59 CLS Outpatient BROOKESHERYL LASSITER AMANDEEP Miriam Via [facility] LAB SOB COPD WEIGHT LOSS [id number] 01/14/2017 12:26:00 23:59:59 CLS Outpatient BROOKESHERYL LASSITER AMANDEEP Miriam Via [facility] RAD FELL-HIT HEAD [id number] 12/19/2016 12:24:00 23:59:59 CLS Outpatient BROOKESHERYL LASSITER AMANDEEP Miriam Via [facility] RAD COPD,COUGH [id number] 09/10/2016 13:39:00 23:59:59 CLS Outpatient BROOKESHERYL LASSITER AMANDEEP Miriam Via [facility] LAB SEIZURE [id number] 08/20/2016 10:59:00 23:59:59 CLS Outpatient CHADWICK LASSITER AMANDEEP Miriam Via [facility] LAB SEIZURE COPD [id number] 02/28/2016 13:20:00 23:59:59 CLS Outpatient BROOKESHERYL LASSITER AMANDEEP Miriam Via [facility] RAD WEIGHT LOSS [id number] 02/21/2016 09:42:00 23:59:59 CLS Outpatient BROOKESHERYL LASSITER AMANDEEP Miriam Via [facility] 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,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 [id number] 02/19/2016 16:00:00 23:59:59 CLS Outpatient AMANDEEP GENAO DO Via [facility] RAD RECENT 20LB [place] GHT LOSS [id number] 12/13/2015 16:15:00 23:59:59 CLS Outpatient AMANDEEP GENAO DO Via [facility] LAB SEIZURE [id number] 11/20/2015 07:17:00 016 09:32:00 DIS Emergency STEFAN HERNANDEZ MD Via [facility] ER SEIZURE [id number] 10/24/2015 13:47:00 15:18:00 DIS Emergency NOREEN CHÁVEZ APRN Via [facility] ER LEFT EAR LAC [id number] 08/10/2015 16:11:00 12:30:00 DIS Inpatient AMANDEEP GENAO DO Via [facility] 4TH COPD EXACERBATI ON [id number] 07/09/2015 13:22:00 23:59:59 CLS Outpatient AMANDEEP GENAO DO Via [facility] LAB HYPERLIPIDEMIA [id number] 06/13/2015 13:09:00 11:40:00 DIS Inpatient AMANDEEP GENAO DO Via [facility] 4TH COPD EXACERBATI ON HYPONATREMIA [id number] 05/30/2015 12:53:00 23:59:59 CLS Outpatient AMANDEEP GENAO DO Via [facility] LAB SEIZURES,HYPERLIPIDEMIA,PAIN IN L FOOT,HX OF FX [id number] 03/11/2015 16:23:00 11:36:00 DIS Inpatient AMANDEEP GENAO DO Via [facility] 4TH PNEUMONIA,HYPOXIA,SEIZURE,COPD EXAC [id number] 11/08/2014 12:06:00 23:59:59 CLS Outpatient AMANDEEP GENAO DO Via [facility] LAB [id number] 08/26/2014 11:54:00 13:42:00 DIS Emergency KARIS BONILLA Via [facility] ER SOA [id number] 04/26/2014 13:15:00 23:59:59 CLS Outpatient BROOKELENAMANDEEP SCHMIDT DO Miriam Via [facility] LAB SEIZURES,COPD [id number] 03/25/2014 12:57:00 23:59:59 CLS Outpatient AMANDEEP GENAO DO Miriam Via [facility] RAD NUMBNESS TINGLI NG OF R ARM [id number] 11/16/2013 12:35:00 23:59:59 CLS Outpatient AMANDEEP GENAO DO Miriam Via [facility] LAB LAMICTAL LEVEL [id number] 11/08/2013 11:10:00 11:27:00 DIS Emergency VANESSA GUTHRIE MD Via [facility] ER STAPLE REMOVAL [id number] 11/02/2013 01:47:00 03:43:00 DIS Emergency VANESSA GUTHRIE MD Via [facility] ER SEIZURE [id number] 11/01/2013 16:10:00 23:59:59 CLS Outpatient AMANDEEP GENAO DO Miriam Via [facility] RAD LT FOOT SWELLIN G AND HAS BUMP ON 1ST METATARSAL [id number] 10/23/2013 12:37:00 23:59:59 CLS Outpatient YELITZA ANTHONY MD Via [facility] LAB SEIZURES-PRIMARY [id number] 09/28/2013 12:18:00 23:59:59 CLS Outpatient JOSEAMANDEEP SCHMIDT DO Via [facility] LAB LEFT LEG SWELL [id number] 09/17/2013 01:40:00 03:55:00 DIS Emergency CELESTE BILLY DO Via [facility] ER SEIZURE-FELL [id number] 09/03/2013 12:42:00 23:59:59 CLS Outpatient AMANDEEP GENAO DO Via [facility] LAB SEIZURE,COPD [id number] 07/20/2013 09:49:00 23:59:59 CLS Outpatient AMANDEEP GENAO DO Via [facility] RAD WEIGHT LOSS, AB D PAIN [id number] 07/12/2013 16:11:00 014 23:59:59 CLS Outpatient AMANDEEP GENAO DO Via [facility] LAB LOST 10 LBS, AB D PAIN [id number] 05/25/2013 16:19:00 014 23:59:59 CLS Outpatient AMANDEEP GENAO DO Via [facility] RAD COUGH,BRONCHITI S [id number] 02/16/2013 13:23:00 16:25:00 DIS Emergency NOREEN CHÁVEZ LEAN SIX SIGMA BLACK BELT Via [facility] ER FELL HURT ANKLE,KNEE, H IP [id number] 12/23/2012 12:55:00 013 14:12:00 DIS Emergency NOREEN CHÁVEZ LEAN SIX SIGMA BLACK BELT Via [facility] ER FALL/LEFT RIB PAIN [id number] 10/29/2012 11:00:00 23:59:59 CLS Outpatient AMANDEEP GENAO DO Via [facility] RAD COPD [id number] 10/22/2012 16:07:00 23:59:59 CLS Outpatient AMANDEEP GENAO DO Via [facility] RAD BRONCHITIS,COPD [id number] 12/09/2011 15:35:00 Document Registration [id number] 10/15/2011 11:10:00 Document Registration [id number] 07/23/2011 23:37:00 Document Registration [id number] 05/18/2011 14:31:00 Document Registration [id number] 02/15/2011 13:07:00 Document Registration [id number] 01/28/2011 12:37:00 Document Registration [id number] 06/23/2010 19:15:00 Document Registration [id number] 05/08/2010 14:15:00 Document Registration [id number] 02/14/2010 11:40:00 Document Registration [id number] 12/02/2009 12:42:00 Document Registration
[2019-06-21 06:03] LABS: ABG BASE EXCESS 7.4 MMOL/L (-2.5-2.5); ABG OXYGEN SATURATION 94 % (94-100); ABG PCO2 59 MMHG (35-45); ABG PH 7.36 (7.37-7.43); ABG PO2 84 MMHG (79-93); ABG TCO2 34.7 MMOL/L (21.0-31.0)
[2019-06-21 06:04] LABS: ALLENS TEST YES-POS; INSPIRED O2 4L; PATIENT TEMP 36.8; VENTILATOR NO
--- NOTE | 2019-06-21 06:05 | ED Respiratory ---
General Chief Complaint: Respiratory Problems Stated Complaint: SOB,HX PNUEMONIA, BROKEN LEG Source: patient, EMS Exam Limitations: no limitations (KALEN BELTRAN) History of Present Illness Date Seen by Provider: Jun 21, 2019 Time Seen by Provider: 05:42 Initial Comments Patient presents to ER by EMS from home with chief complaint of shortness of breath progressively worsening. He has a history of COPD as well as he recently got off of antibiotics for pneumonia in the past 2 weeks. He broke his leg couple weeks ago had it set and casted. He says he's been sitting at home not moving and has now started developing pressure ulcers on his sacrum. He is not on blood thinners he is not having any chest pain nausea vomiting fever, chills. He does have a cough sometimes productive. EMS gave him a DuoNeb on route and he was about 100% on the 8 L. He is on his baseline of 4 L by nasal cannula when they arrived satting in the upper 90s. (KALEN BELTRAN) Allergies and Home Medications Allergies Coded Allergies: aspirin (Unverified Allergy, Mild, DOES NOT WORK WELL W/ OTHER MEDS, 10/05/18) ibuprofen (Unverified Allergy, Mild, 10/05/18) Home Medications Albuterol Sulfate 2.5 Mg/3 Ml Vial.neb, 2.5 MG NEB Q4H PRN for SHORTNESS OF BREATH, (Reported) Albuterol Sulfate 1 Puff Puff, 2 PUFF IH Q6H PRN for SHORTNESS OF BREATH, (Repo rted) Amlodipine Besylate 5 Mg Tablet, 5 MG PO 0800, (Reported) Atorvastatin Calcium 20 Mg Tablet, 10 MG PO 0300, (Reported) TAKES OF A 20MG ONCE DAILY Budesonide/Formoterol Fumarate 10.2 Gm Hfa.aer.ad, 2 PUFF INH BID PRN for WHEN OUT OF ADVAIR, (Reported) Carbamazepine 200 Mg Tablet, 200 MG PO 0300,0800,2300, (Reported) Carbamazepine 200 Mg Tablet, 400 MG PO 1500, (Reported) TAKES 2 (200 MG) TABLETS Cefdinir 300 Mg Capsule, 300 MG PO BID Prescribed by: GENIE HANSON on 06/07/19 0805 Fluticasone/Salmeterol 12 Gm Hfa.aer.ad, 1 PUFF IH BID, (Reported) Gabapentin 300 Mg Capsule, 300 MG PO 2300, (Reported) Gabapentin 600 Mg Tablet, 600 MG PO 0800,1500, (Reported) Lamotrigine 25 Mg Tablet, 25 MG PO 0300, 1500, (Reported) TAKES 25MG @ 0300 25MG + 100MG @1500 Lamotrigine 100 Mg Tablet, 100 MG PO 1500,2300, (Reported) PT TAKES 100MG AT 1500 & 2300 Meloxicam 7.5 Mg Tablet, 15 MG PO 1500, (Reported) Omeprazole 20 Mg Capsule.dr, 20 MG PO DAILY PRN for HEARTBURN, (Reported) Phenytoin Sodium Extended 100 Mg Capsule, 200 MG PO 0800,1500, (Reported) TAKES 2 (100 MG) CAPSULES Phenytoin Sodium Extended 100 Mg Capsule, 100 MG PO 2300, (Reported) Prednisone 10 Mg Tab.ds.pk, 10 MG PO DAILY take 40 mg day 1 take 30 mg day 2 take 20 mg day 3 take 19 mg day 4 stop when they aare all gone Prescribed by: GENIE HANSON on 06/07/19 0805 Ropinirole HCl 0.5 Mg Tablet, 0.5 MG PO 1500, (Reported) Tiotropium [place] 1 Inh Aerp, 1 CAP IH 1500, (Reported) Patient Home Medication List Home Medication List Reviewed: Yes (KALEN BELTRAN) Review of Systems Review of Systems Constitutional: No chills, No diaphoresis; malaise, weakness EENTM: No ear discharge, No hearing loss, No ear pain Respiratory: cough, phlegm, short of breath, wheezing Cardiovascular: No chest pain, No palpitations Gastrointestinal: No abdominal pain, No nausea Genitourinary: No discharge, No dysuria Musculoskeletal: No back pain, No joint pain (KALEN BELTRAN) All Other Systems Reviewed Negative Unless Noted: Yes (KALEN BELTRAN) Past Ajfxlqh-Lsyjhc-Ylrrfn Hx Patient Social History Alcohol Use: Denies Use Recreational Drug Use: No Drug of Choice: HX OF RX DRUG ABUSE, CLAIMS NONE 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 Smoking Status: Former Smoker Type Used: Cigars, Cigarettes Former Smoker, Quit: Jan 29, 2017 2nd Hand Smoke Exposure: No Recent Hopitalizations: No Physical Abuse: No Sexual Abuse: No Mistreated: No Fear: No (KALEN BELTRAN) Immunizations Up To Date Tetanus Booster (TDap): Less than 5yrs PED Vaccines UTD: Yes Date of Influenza Vaccine: Apr 21, 2018 (KALEN BELTRAN) Seasonal Allergies Seasonal Allergies: Yes (KALEN BELTRAN) Past Medical History Surgeries: Yes Eye Surgery, Gallbladder Respiratory: Yes Asthma, Pneumonia, Chronic Bronchitis, Sleep Apnea, COPD Currently Using CPAP: No Currently Using BIPAP: No Cardiac: Yes Heart Murmur, High Cholesterol, Hypertension, Valvular Heart Disease 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) Neuropathy, Seizure Disorder, Vertigo Reproductive Disorders: No Sexually Transmitted Disease: No HIV/AIDS: No Genitourinary: No Gastrointestinal: Yes (CHRONIC NAUSEA/VOMITING) Musculoskeletal: Yes (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 (KALEN BELTRAN) Physical Exam Vital Signs - First Documented 06/21/19 06/21/19 06/21/19 05:41 06:20 08:11 Temp 36.8 Pulse 77 Resp 22 B/P (MAP) 183/98 (126) Pulse Ox 98 O2 Delivery Nasal Cannula O2 Flow Rate 50.00 FiO2 36 (VANESSA GUTHRIE MD) Capillary Refill : (KALEN BELTRAN) Height: 6'0" Weight: 174lbs. 3.0oz. 79.397744sh; 25.17 BMI Method:Stated General Appearance: moderate distress, thin Eyes: Bilateral Eye Normal Inspection, Bilateral Eye PERRL, Bilateral Eye EOMI HEENT: PERRL/EOMI, normal ENT inspection, pharynx normal Neck: full range of motion, supple, normal inspection Respiratory: respiratory distress (mild to moderate, purse lip breathing without tripoding. Respiratory rate approximately 20-24.), accessory muscle use (mild), wheezing Cardiovascular: normal peripheral pulses, regular rate, rhythm Gastrointestinal: normal bowel sounds, non tender, soft Extremities: normal range of motion, non-tender, normal capillary refill Neurologic/Psychiatric: alert, normal mood/affect, oriented x 3 Skin: normal color, warm/dry (KALEN BELTRAN) Focused Exam Lactate Level 06/21/19 05:53: Lactic Acid Level 1.01 (VANESSA GUTHRIE MD) Lactic Acid Level Laboratory Tests Test 06/21/19 05:53 Lactic Acid Level 1.01 MMOL/L (0.50-2.00) (VANESSA GUTHRIE MD) Procedures/Interventions Date of ETT Placement: Mar 09, 2017 Time of ETT Placement: 1811 (KALEN BELTRAN) Suture Size: 5-0 (KALEN BELTRAN) Progress/Results/Core Measures Suspected Sepsis SIRS Temperature: Pulse: Respiratory Rate: Blood Pressure / Mean: (KALEN BELTRAN) Results/Orders Lab Results Laboratory Tests Test 06/21/19 05:47 06/21/19 05:48 06/21/19 05:53 Range/Units Blood Gas Puncture Site LEFT RADIAL Blood Gas Patient Temperature 36.8 Arterial Blood pH 7.36 L 7.37-7.43 Arterial Blood Partial Pressure CO2 59 H 35-45 MMHG Arterial Blood Partial Pressure O2 84 79-93 MMHG Arterial Blood HCO3 33 H 23-27 MMOL/L Arterial Blood Total CO2 34.7 H 21.0-31.0 MMOL/L Arterial Blood Oxygen Saturation 94 94-100 % Arterial Blood Base Excess 7.4 H -2.5-2.5 MMOL/L Johan Test YES-POS Blood Gas Ventilator Setting NO Blood Gas Inspired Oxygen 4L White Blood Count 8.3 4.3-11.0 10^3/uL Red Blood Count 3.41 L 4.35-5.85 10^6/uL Hemoglobin 9.7 L 13.3-17.7 G/DL Hematocrit 30 L 40-54 % Mean Corpuscular Volume 88 80-99 FL Mean Corpuscular Hemoglobin 28 25-34 PG Mean Corpuscular Hemoglobin Concent 32 32-36 G/DL Red Cell Distribution Width 14.8 H 10.0-14.5 % Platelet Count 413 H 130-400 10^3/uL Mean Platelet Volume 7.9 7.4-10.4 FL Neutrophils (%) (Auto) 76 H 42-75 % Lymphocytes (%) (Auto) 9 L 12-44 % Monocytes (%) (Auto) 16 H 0-12 % Eosinophils (%) (Auto) 0 0-10 % Basophils (%) (Auto) 0 0-10 % Neutrophils # (Auto) 6.3 1.8-7.8 X 10^3 Lymphocytes # (Auto) 0.7 L 1.0-4.0 X 10^3 Monocytes # (Auto) 1.3 H 0.0-1.0 X 10^3 Eosinophils # (Auto) 0.0 0.0-0.3 10^3/uL Basophils # (Auto) 0.0 0.0-0.1 10^3/uL Prothrombin Time 14.0 12.2-14.7 SEC INR Comment 1.0 0.8-1.4 Activated Partial Thromboplast Time 37 H 24-35 SEC D-Dimer 1.73 H 0.00-0.49 UG/ML Sodium Level 132 L 135-145 MMOL/L Potassium Level 4.3 3.6-5.0 MMOL/L Chloride Level 92 L 98-107 MMOL/L Carbon Dioxide Level 31 21-32 MMOL/L Anion Gap 9 5-14 MMOL/L Blood Urea Nitrogen 9 7-18 MG/DL Creatinine 1.00 0.60-1.30 MG/DL Estimat Glomerular Filtration Rate > 60 BUN/Creatinine Ratio 9 Glucose Level 115 H 70-105 MG/DL Calcium Level 8.4 L 8.5-10.1 MG/DL Corrected Calcium 8.7 8.5-10.1 MG/DL Total Bilirubin 0.2 0.1-1.0 MG/DL Aspartate Amino Transf (AST/SGOT) 14 5-34 U/L Alanine Aminotransferase (ALT/SGPT) 11 0-55 U/L Alkaline Phosphatase 147 H 40-136 U/L C-Reactive Protein High Sensitivity 7.24 H 0.00-0.50 MG/DL Total Protein 6.6 6.4-8.2 GM/DL Albumin 3.6 3.2-4.5 GM/DL Lactic Acid Level 1.01 0.50-2.00 MMOL/L (VANESSA GUTHRIE MD) Micro Results Microbiology 06/21/19 Influenza Types A,B Antigen (VY) - Final, Complete (VANESSA GUTHRIE MD) My Orders Orders - VANESSA GUTHRIE MD Lamotrigine Tablet (Lamictal Tablet) (06/21/19 09:00) Phenytoin Capsule (Dilantin Capsule) (06/21/19 09:00) Carbamazepine Tablet (Tegretol Tablet) (06/21/19 09:00) Lactic Acid Analyzer (06/21/19 08:54) Piperacillin/Tazobactam (Bulk) (Zosyn In (06/21/19 09:15) Piperacillin Sodium/Tazobactam (Zosyn Vi (06/21/19 09:04) Ns (Ivpb) (Sodium Chloride 0.9% Ivpb Bag (06/21/19 09:05) Methylprednisolone Sod Succ (Solu-Medrol (06/21/19 09:30) (VANESSA GUTHRIE MD) Medications Given in ED Current Medications Medications Dose Ordered Sig/Porfirio Route Start Time Stop Time Status Last Admin Dose Admin Albuterol/ Ipratropium 3 ml ONCE ONCE INH 06/21/19 06:00 06/21/19 06:01 DC 06/21/19 06:08 3 ML Iohexol 100 ml ONCE ONCE IV 06/21/19 07:45 06/21/19 07:46 DC 06/21/19 08:29 85 ML Lamotrigine 25 mg ONCE ONCE PO 06/21/19 09:00 06/21/19 09:01 DC 06/21/19 09:22 25 MG Phenytoin Sodium 200 mg ONCE ONCE PO 06/21/19 09:00 06/21/19 09:01 DC 06/21/19 09:22 200 MG Piperacillin Sod/ Tazobactam Sod 4.5 gm/Sodium Chloride 120 ml @ 240 mls/hr ONCE ONCE IV 06/21/19 09:15 06/21/19 09:44 06/21/19 09:22 240 MLS/HR Sodium Chloride 100 ml ONCE ONCE IV 06/21/19 07:45 06/21/19 07:46 DC 06/21/19 08:29 80 ML (VANESSA GUTHRIE MD) Vital Signs/I&O 06/21/19 06/21/19 06/21/19 05:41 06:20 08:11 Temp 36.8 Pulse 77 80 Resp 22 22 B/P (MAP) 183/98 (126) Pulse Ox 98 95 O2 Delivery Nasal Cannula Vapotherm O2 Flow Rate 50.00 30.00 FiO2 36 (VANESSA GUTHRIE MD) Vital Signs/I&O Capillary Refill : (KALEN BELTRAN) Progress Note : Time: 06:09 Progress Note Patient working hard to breathe would like to put him with an hour-long breathing treatment and sent his ABG demonstrates some respiratory acidosis with CO2 retention of 59 would like to try BiPAP. The patient is adamant he will not be the BiPAP so we'll try Vapotherm and an hour-long. He has some stage I and 3x stage II 1 cm areas of pressure ulcer on the sacrum. We will dress those with pressure relief dressing. He has a broken leg and has been immobilized so a pulmonary embolism is also highly possible. On 4 L his PO2 is 83 and he is not tachycardic. Plan to get a CT angiogram of the chest. (KALEN BELTRAN) Progress Note : Progress Note Assumed care of the patient from Dr. Beltran at [address] angiogram of the chest. 30: CT angiogram completed and does show bibasilar pneumonia. I have added lactic acid and blood cultures. Patient did get Zosyn 4.5 g IV as he is at high risk for healthcare associated pneumonia due to recent hospitalization and long-standing COPD. Review of previous history shows that he is MRSA negative so we will hold on vancomycin at this point. I did discuss the case with Dr. Nicholson. She is on-call for Dr. Genao and accepts patient for admission, inpatient status. He is stable for admission to stepdown. We will go ahead and initiate Solu-Medrol 125 mg IV. I did give him his morning dose of lamotrigine, Dilantin and carbamazepine for seizure history. Admit, inpatient status. Patient agrees with plan. (VANESSA GUTHRIE MD) Diagnostic Imaging Diagonstic Imaging: Xray Plain Films/CT/US/NM/MRI: chest (1 view) Reviewed: Reviewed by Me Diagonstic Imaging: CT (angiogram) Plain Films/CT/US/NM/MRI: chest Reviewed: Reviewed by Me (KALEN BELTRAN) Comments [facility]. [place], [place] NAME: CR QUIJANO [facility] REC#: [id number] PT STATUS: REG ER : 1955 PHYSICIAN: KALEN BELTRAN MD ADMIT DATE: 06/21/19/ER Draft Date of Exam:06/21/19 CT ANGIO CHEST W PROCEDURE: CT angiography of the chest with contrast. TECHNIQUE: Multiple contiguous axial images were obtained through the chest after uneventful bolus administration of intravenous contrast. 3D reconstructed CTA MIP acquisitions were also performed. Auto Exposure Controls were utilized during the CT exam to meet ALARA standards for radiation dose reduction. INDICATION: Shortness of air, cough. Progressive lower lobe consolidations are present. There is some bronchial wall thickening in a perihilar and lower lobe distribution also increased. There is background changes of centrilobular emphysema. No effusion, pneumothorax or evidence for pulmonary abscess. No thoracic adenopathy. No chest effusion. No acute soft tissue or osseous chest wall pathology. Chronic degenerative changes stable. The upper abdomen reveal no acute finding. IMPRESSION: Progressive predominantly dependent perihilar and lower lobe consolidations. Aspiration underlying could not be excluded in the appropriate scenario. Additional chronic features of COPD and nonaneurysmal atherosclerosis unchanged. No pulmonary arterial embolus. Dictated on workstation # [id number] Dict: 06/21/19 0830 Trans: 06/21/19 0839 [facility] [id number] Interpreted by: AUSTEN COLEMAN Electronically signed by: (VANESSA GUTHRIE MD) Departure Communication (Admissions) Time/Spoke to Admitting Phy: 09:15 (VANESSA GUTHRIE MD) Impression Primary Impression: Pneumonia of both lower lobes Qualified Codes: J18.1 - Lobar pneumonia, unspecified organism Additional Impressions: COPD with acute exacerbation Sacral pressure ulcer Qualified Codes: L89.159 - Pressure ulcer of sacral region, unspecified stage Disposition: ADMITTED INPATIENT Condition: Stable Admissions Decision to Admit Reason: Admit from ER (General) Decision to Admit/Date: Jun 21, 2019 Time/Decision to Admit Time: 09:15 (VANESSA GUTHRIE MD) Departure-Patient Inst. Referrals: AMANDEEP GENAO DO (PCP/Family) Primary Care Physician KALEN BELTRAN Jun 21, 2019 06:05 VANESSA GUTHRIE MD Jun 21, 2019 09:35
[2019-06-21 06:07] LABS: BASOPHILS % (AUTO) 0 % (0-10); EOSINOPHILS % (AUTO) 0 % (0-10); HEMATOCRIT 30 % (40-54); HEMOGLOBIN 9.7 G/DL (13.3-17.7); LYMPHOCYTES # (AUTO) 0.7 X 10^3 (1.0-4.0); LYMPHOCYTES % (AUTO) 9 % (12-44); MEAN CORPUSCULAR HEMOGLOBIN 28 PG (25-34); MEAN CORPUSCULAR HGB CONC 32 G/DL (32-36); MEAN CORPUSCULAR VOLUME 88 FL (80-99); MEAN PLATELET VOLUME 7.9 FL (7.4-10.4); MONOCYTES # (AUTO) 1.3 X 10^3 (0.0-1.0); MONOCYTES % (AUTO) 16 % (0-12); NEUTROPHILS # (AUTO) 6.3 X 10^3 (1.8-7.8); NEUTROPHILS % (AUTO) 76 % (42-75); PLATELET COUNT 413 10^3/uL (130-400); RED CELL DISTRIBUTION WIDTH 14.8 % (10.0-14.5); WHITE BLOOD COUNT 8.3 10^3/uL (4.3-11.0)
[2019-06-21 06:17] LABS: FIBRIN DEGRADATION PRODUCTS 1.73 UG/ML (0.00-0.49)
[2019-06-21 06:22] LABS: ALANINE AMINOTRANSFERASE 11 U/L (0-55); ALBUMIN 3.6 GM/DL (3.2-4.5); ALKALINE PHOSPHATASE 147 U/L (40-136); BILIRUBIN,TOTAL 0.2 MG/DL (0.1-1.0); BUN/CREATININE RATIO 9; CALCIUM 8.4 MG/DL (8.5-10.1); CARBON DIOXIDE 31 MMOL/L (21-32); CHLORIDE 92 MMOL/L (98-107); GFR ESTIMATED > 60; GLUCOSE 115 MG/DL (70-105); POTASSIUM 4.3 MMOL/L (3.6-5.0); SODIUM 132 MMOL/L (135-145); TOTAL PROTEIN 6.6 GM/DL (6.4-8.2)
--- NOTE | 2019-06-21 07:35 | Diagnostic Imaging Report ---
INDICATION: Dyspnea AP view of the chest is obtained with comparison made to study of 06/07/2019. There is air trapping involving primarily the upper lobes. There has been an increase in perihilar and basilar densities likely due to atelectasis and pneumonitis. No pneumothorax is seen. Right anterior chest wall port remains in stable position and there are advanced degenerative findings in the shoulders. IMPRESSION: Perihilar and basilar atelectasis and/or pneumonitis show mild worsening since previous study. Otherwise, no adverse change is seen. Dictated by: Dictated on workstation # [id number]
[2019-06-21] MEDS ORDERED: IOHEXOL 350 MG/ML 100 ML (OMNIPAQUE 350) VIAL IV ONE (07:45)
[2019-06-21] MEDS ORDERED: HOLD METFORMIN - RECEIVED CONTRAST 20 ML VIAL IV SCH (07:45)
[2019-06-21] MEDS ORDERED: NS 100 ML (IVPB) BAG IV ONE (07:45)
--- NOTE | 2019-06-21 08:40 | Diagnostic Imaging Report ---
PROCEDURE: CT angiography of the chest with contrast. TECHNIQUE: Multiple contiguous axial images were obtained through the chest after uneventful bolus administration of intravenous contrast. 3D reconstructed CTA MIP acquisitions were also performed. Auto Exposure Controls were utilized during the CT exam to meet ALARA standards for radiation dose reduction. INDICATION: Shortness of air, cough. Progressive lower lobe consolidations are present. There is some bronchial wall thickening in a perihilar and lower lobe distribution also increased. There is background changes of centrilobular emphysema. No effusion, pneumothorax or evidence for pulmonary abscess. No thoracic adenopathy. No chest effusion. No acute soft tissue or osseous chest wall pathology. Chronic degenerative changes stable. The upper abdomen reveal no acute finding. IMPRESSION: Progressive predominantly dependent perihilar and lower lobe consolidations. Aspiration underlying could not be excluded in the appropriate scenario. Additional chronic features of COPD and nonaneurysmal atherosclerosis unchanged. No pulmonary arterial embolus. Dictated by: Dictated on workstation # [id number]
[2019-06-21] MEDS ORDERED: PHENYTOIN 100 MG (DILANTIN) CAP PO ONE (09:00)
[2019-06-21] MEDS ORDERED: lamoTRIgine 25 MG (LaMICtal) TAB PO ONE (09:00)
[2019-06-21] MEDS ORDERED: carBAMazepine 200 MG (TEGretol) TAB PO SCH ×2 (09:00→23:00)
[2019-06-21] MEDS ORDERED: PIPERACILLIN/TAZO 4.5 GM VIAL (ZOSYN) IV ONE (09:04)
[2019-06-21] MEDS ORDERED: NS (IVPB) 0 ML ONE (09:05)
[2019-06-21] MEDS ORDERED: PIPERACILLIN/TAZOBACTAM (BULK) 4.5 GM in NS (IVPB) 100 ML IV ONE (09:15)
[2019-06-21] MEDS ORDERED: methylPREDNISolone 125 MG (Solu-MEDROL) VIAL IVP ONE (09:30)
[2019-06-21] MEDS ORDERED: RT-ALBUTEROL/IPRATROPIUM 3 ML (DUONEB) VIAL INH PRN (10:00)
[2019-06-21] MEDS ORDERED: NOREPINEPHRINE 4 MG/250 ML 250 ML IV SCH (10:35)
[2019-06-21] MEDS ORDERED: VASOPRESSIN INJECTION 20 UNIT in NORMAL SALINE 100 ML IV SCH (10:35)
[2019-06-21] MEDS ORDERED: EPINEPHrine 1 MG INJECTION 2 MG in NS (IVPB) 250 ML IV SCH (10:45)
--- NOTE | 2019-06-21 10:50 | NUR ---
Pastoral care visit.
[2019-06-21] MEDS ORDERED: MUPI22OI2 TOP (11:32)
[2019-06-21] MEDS ORDERED: HYDR-4226 PO (11:32)
[2019-06-21] MEDS ORDERED: PRD10T PO (11:32)
[2019-06-21] MEDS: RT-ALBUTEROL/IPRATROPIUM 3 ML (DUONEB) VIAL INH SCH ×3 (11:32→22:08)
[2019-06-21] MEDS ORDERED: ACET-93 PO (11:39)
--- NOTE | 2019-06-21 11:39 | NUR ---
SPOKE WITH THE PT, WENT THRU THE EXT MED HISTORY, CALLED [facility] AND SPOKE WITH THE PTS GIRLFRIEND (VELVET- SHE TAKES CARE OF HIS MEDS) TO COMPLETE THE MED REC. PT HAS BEEN HERE MULTIPLE TIMES OVER THE PAST MONTH-WHEN I SPOKE WITH HIM TODAY HE SAID NONE OF HIS MAINTENANCE MEDS HAVE CHANGED FROM HIS LAST HOSPITAL STAY. PLEASE SEE PAST NOTES FROM 06-07-2019 FOR DETAILS ON THE ATORVASTATIN AND NOTES FROM 05-18-2019 FOR DETAILED INSTRUCTIONS ON LAMOTRIGINE, CARBAMAZEPINE, AND PHENYTOIN. LAMOTRIGINE 100MG WAS LAST FILLED ON 03-25-2019 #60/30DS- WHEN I ASKED VELVET ABOUT THE LATE FILL SHE DIDNT KNOW THE ANSWER AND THOUGHT IT WAS A COMBINATION OF GETTING IT EARLY A COUPLE TIMES AND DURING HIS RECENT HOSPITAL STAYS HE COULD HAVE HAD SOME LEFT OVER. I DID DOCUMENT THE PAST DUE FILL ON THE MED REC OTC MEDS: TYLENOL
[2019-06-21] MEDS: methylPREDNISolone 40 MG/ML (Solu-MEDROL) VIAL IV SCH ×3 (12:00→23:00)
[2019-06-21] MEDS: LACTATED RINGERS 1,000 ML IV SCH (12:10)
[2019-06-21] MEDS: PIPERACILLIN/TAZO 4.5 GM/NS 100 ML IV SCH ×4 (16:31→22:59)
[2019-06-21] MEDS ORDERED: ACETAMINOPHEN 325 MG TABLET PO PRN (18:30)
--- NOTE | 2019-06-21 19:20 | History & Physical ---
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 HE PRESENTED TO THE HOSPITAL WITH WORSENING OF HIS USUAL SHORTNESS OF BREATH AND COUGH. HE REPORTS THAT HE HAS NOT BEEN OUT OF THE HOUSE SINCE HIS TIB/FIB FRACTURE ON 06/08/2019 AND HE HAS NOT HAD A FEVER, JUST WORSENING COUGH AND SOA. UPON ER EVALUATION, HE HAD PNEUMONIA BY XRAY AND ELEVATED CRP IN THE ICU IT WAS NOTED THAT THERE WAS A STRONG SMELL COMING FROM HIS ROOM AND PT WAS QUESTIONING ABOUT SOME RELIEF OF THE SEVERE PAIN IN THE BACK OF HIS LEFT KNEE/THIGH. HE DENIES CHEST PAIN, ABDOMINAL PAIN, NAUSEA. Date of Admission Jun 21, 2019 at 09:11 Date Seen by a Provider: Jun 21, 2019 Time Seen by a Provider: 19:00 I consulted on this patient on 06/21/19 19:19 Attending Physician Micky Genao DO Admitting Physician BALBIR LARA MD Consult Allergies and Home Medications Allergies Coded Allergies: aspirin (Unverified Allergy, Mild, DOES NOT WORK WELL W/ OTHER MEDS, 10/05/18) ibuprofen (Unverified Allergy, Mild, 10/05/18) Home Medications Acetaminophen 500 Mg Tablet, 1,000 MG PO Q8H PRN for PAIN-MILD (1-4), (Reported) Albuterol Sulfate 2.5 Mg/3 Ml Vial.neb, 2.5 MG NEB Q4H PRN for SHORTNESS OF BREATH, (Reported) Albuterol Sulfate 1 Puff Puff, 2 PUFF IH Q6H PRN for SHORTNESS OF BREATH, (Reported) Amlodipine Besylate 5 Mg Tablet, 5 MG PO 0800, (Reported) Atorvastatin Calcium 20 Mg Tablet, 10 MG PO 0300, (Reported) TAKES OF A 20MG ONCE DAILY Budesonide/Formoterol Fumarate 10.2 Gm Hfa.aer.ad, 2 PUFF INH BID PRN for WHEN OUT OF ADVAIR, (Reported) Carbamazepine 200 Mg Tablet, 200 MG PO 0300,0800,2300, (Reported) Carbamazepine 200 Mg Tablet, 400 MG PO 1500, (Reported) TAKES 2 (200 MG) TABLETS Fluticasone/Salmeterol 12 Gm Hfa.aer.ad, 1 PUFF IH BID, (Reported) Gabapentin 300 Mg Capsule, 300 MG PO 2300, (Reported) Gabapentin 600 Mg Tablet, 600 MG PO 0800,1500, (Reported) Hydrocodone/Acetaminophen 1 Each Tablet, 1 TAB PO Q6H PRN for PAIN-MODERATE (5- 7), (Reported) Lamotrigine 25 Mg Tablet, 25 MG PO 0300, 1500, (Reported) TAKES 25MG @ 0300 25MG + 100MG @1500 Lamotrigine 100 Mg Tablet, 100 MG PO 1500,2300, (Reported) LAST FILLED 03-25-2019 #60/30 DAY SUPPLY PT TAKES 100MG AT 1500 & 2300 Meloxicam 7.5 Mg Tablet, 15 MG PO 1500, (Reported) Mupirocin 22 Gm Oint...g., 1 APPFUL TOP BID PRN for SKIN IRRITATION, (Reported) Omeprazole 20 Mg Capsule.dr, 20 MG PO DAILY PRN for HEARTBURN, (Reported) Phenytoin Sodium Extended 100 Mg Capsule, 200 MG PO 0800,1500, (Reported) TAKES 2 (100 MG) CAPSULES Phenytoin Sodium Extended 100 Mg Capsule, 100 MG PO 2300, (Reported) Prednisone 10 Mg Tab, 10 MG PO DAILY, (Reported) Ropinirole HCl 0.5 Mg Tablet, 0.5 MG PO 1500, (Reported) Tiotropium [place] 1 Inh Aerp, 1 CAP IH 1500, (Reported) Patient Home Medication List Home Medication List Reviewed: Yes Past Smagvmo-Jmeofm-Rrbmgd Hx Past Med/Social Hx: Reviewed Nursing Past Med/Soc Hx, Reviewed and Corrections made Patient Social History Marrital Status: domestic partnership Alcohol Use: Denies Use Recreational Drug Use: No Drug of Choice: HX OF RX DRUG ABUSE, CLAIMS NONE 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 Smoking Status: Former Smoker Former Smoker, Quit: Jan 29, 2017 Type Used: Cigars, Cigarettes 2nd Hand Smoke Exposure: No Physical Abuse Screen: No Sexual Abuse: No Recent Foreign Travel: No Contact w/other who traveled: No Recent Hopitalizations: No Recent Infectious Disease Expo: No Immunizations Up To Date Tetanus Booster (TDap): Less than 5yrs Pediatric: Yes Date of Influenza Vaccine: Apr 21, 2018 Seasonal Allergies Seasonal Allergies: Yes Past Medical History Surgeries: Eye Surgery, Gallbladder Respiratory: COPD, Emphysema, Pneumonia Currently Using CPAP: No Currently Using BIPAP: No Cardiac: Heart Murmur, High Cholesterol, Hypertension, Valvular Heart Disease Neurological: Neuropathy, Seizure Disorder, Vertigo Reproductive: No Sexually Transmitted Disease: No HIV/AIDS: No Musculoskeletal: Arthritis, Fractures Loss of Vision: Denies Hearing Impairment: Denies Cancer: Bone, Lung Did You Recieve Any Treatments: Yes What Type of Treatment Did You: Chemotherapy History of Blood Disorders: No Adverse Reaction to Blood Salcedo: No Family History Reviewed Nursing Family Hx Diabetes mellitus 19 MOTHER Hypercholesterolemia 19 FATHER Hypertension 19 FATHER Heart Disease Limited to records review due to clinical condition. Review of Systems Constitutional: No chills, No fever; malaise, weakness EENTM: No hoarseness, No throat pain Respiratory: cough, dyspnea on exertion, short of breath Cardiovascular: No chest pain, No palpitations Gastrointestinal: No abdominal pain, No constipation, No diarrhea, No nausea, No vomiting Genitourinary: no symptoms reported Musculoskeletal: other (LEFT LEG PAIN - LEG IN SPLINT) Skin: other (WOUND ON LEFT LEG AND BUTTOCK) Psychiatric/Neurological: Anxiety, Weakness All Other Systems Reviewed Negative Unless Noted: Yes Physical Exam Vital Signs Vital Signs - First Documented 06/21/19 06/21/19 06/21/19 05:41 06:20 08:11 Temp 36.8 Pulse 77 Resp 22 B/P (MAP) 183/98 (126) Pulse Ox 98 O2 Delivery Nasal Cannula O2 Flow Rate 50.00 FiO2 36 Capillary Refill : Less Than 3 SecondsLess Than 3 Seconds Height, Weight, BMI Height: 6'0" Weight: 174lbs. 3.0oz. 79.480693ry; 24.41 BMI Method:Stated General Appearance: WD/WN, Mild Distress Eyes: Bilateral Eye Normal Inspection, Bilateral Eye PERRL, Bilateral Eye EOMI HEENT: PERRL/EOMI, Pharynx Normal Neck: Full Range of Motion, Non Tender, Supple Respiratory: Crackles (INBASES), Decreased Breath Sounds, Rhonci Cardiovascular: Regular Rate, Rhythm Gastrointestinal: Normal Bowel Sounds, Non Tender, Soft Rectal: Deferred Back: Normal Inspection Extremity: Normal Capillary Refill; No Calf Tenderness; Other (CHARCOT APPEARING FOOT IN SPLINT) Neurologic/Psychiatric: Alert, Oriented x3, No Motor/Sensory Deficits, Normal Mood/Affect Skin: Warm/Dry, Other (ULCER ON LEFT POSTERIOR THIGH AT PROXIMAL POPLITEAL FOSSA FROM TOP OF SPLINT, TENDER, FOUL SMELLING ABOUT 1/8MM DEEP) Lymphatic: No Adenopathy Assessment/Plan Assessment and Plan COPD EXACERBATION PNEUMONIA HYPONATREMIA PRESSURE ULCER BUTTOCK PRESSURE ULCER LEFT POSTERIOR THIGH SEIZURE DISORDER HYPERTENSION ELEVATED CRP TIBIAL AND FIBULA FRACTURE LEFT LEG 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 RUBY CONSULTED TO ADJUST THE POSTERIOR IMMOBILIZING SPLINT TO PREVENT FURTHER PRESSURE ON CURRENT WOUND - MEANWHILE I HAVE REMOVED THE POSTERIOR PORTION OF THE SPLINT. SEIZURE DISORDER - RESUMED HOME REGIMEN HYPERTENSION - CHRONIC - WILL RESTART AMLODIPINE ELEVATED CRP - DUE TO ACUTE ILLNESS, MONITOR AGAIN LATER THIS WEEK TIBIAL AND FIBULA FRACTURE LEFT LEG - CONSULT TO DR. 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
[2019-06-21] MEDS: carBAMazepine 200 MG (TEGretol) TAB PO SCH (22:59)
[2019-06-21] MEDS: PHENYTOIN 100 MG (DILANTIN) CAP PO SCH (22:59)
[2019-06-21] MEDS ORDERED: PHENYTOIN 100 MG (DILANTIN) CAP PO SCH (23:00)
[2019-06-22] VITALS: BP 172/99
[2019-06-22] MEDS: RT-ALBUTEROL/IPRATROPIUM 3 ML (DUONEB) VIAL INH SCH ×6 (02:16→21:22)
[2019-06-22] MEDS: carBAMazepine 200 MG (TEGretol) TAB PO SCH ×4 (02:26→22:51)
[2019-06-22] MEDS ORDERED: carBAMazepine 200 MG (TEGretol) TAB PO SCH (03:00)
[2019-06-22 03:07] LABS: BASOPHILS % (AUTO) 0 % (0-10); EOSINOPHILS % (AUTO) 0 % (0-10); HEMATOCRIT 33 % (40-54); HEMOGLOBIN 10.7 G/DL (13.3-17.7); LYMPHOCYTES # (AUTO) 0.3 X 10^3 (1.0-4.0); LYMPHOCYTES % (AUTO) 4 % (12-44); MEAN CORPUSCULAR HEMOGLOBIN 28 PG (25-34); MEAN CORPUSCULAR HGB CONC 32 G/DL (32-36); MEAN CORPUSCULAR VOLUME 87 FL (80-99); MONOCYTES # (AUTO) 0.3 X 10^3 (0.0-1.0); MONOCYTES % (AUTO) 4 % (0-12); NEUTROPHILS # (AUTO) 7.2 X 10^3 (1.8-7.8); NEUTROPHILS % (AUTO) 92 % (42-75); PLATELET COUNT 415 10^3/uL (130-400); RED CELL DISTRIBUTION WIDTH 14.7 % (10.0-14.5); WHITE BLOOD COUNT 7.8 10^3/uL (4.3-11.0)
[2019-06-22 03:29] LABS: BAND NEUTROPHILS 3 %; HYPOCHROMASIA SLIGHT; LYMPHOCYTES % (MANUAL) 6 %; MONOCYTES % (MANUAL) 3 %; NEUTROPHILS % (MANUAL) 88 %
[2019-06-22 03:38] LABS: POTASSIUM 4.8 MMOL/L (3.6-5.0); SODIUM 131 MMOL/L (135-145)
[2019-06-22 03:39] LABS: ALANINE AMINOTRANSFERASE 14 U/L (0-55); ALKALINE PHOSPHATASE 158 U/L (40-136); BILIRUBIN,TOTAL 0.3 MG/DL (0.1-1.0); BUN/CREATININE RATIO 11; CALCIUM 9.2 MG/DL (8.5-10.1); CARBON DIOXIDE 27 MMOL/L (21-32); CHLORIDE 94 MMOL/L (98-107); CREATININE SERUM 0.66 MG/DL (0.60-1.30); GFR ESTIMATED > 60; GLUCOSE 132 MG/DL (70-105); TOTAL PROTEIN 7.1 GM/DL (6.4-8.2)
[2019-06-22 03:40] LABS: ALBUMIN 3.8 GM/DL (3.2-4.5)
[2019-06-22] MEDS: methylPREDNISolone 40 MG/ML (Solu-MEDROL) VIAL IV SCH ×4 (04:53→22:53)
[2019-06-22] MEDS: LACTATED RINGERS 1,000 ML IV SCH (05:32)
[2019-06-22 08:00] VITALS: BP 144/78
[2019-06-22] MEDS: PHENYTOIN 100 MG (DILANTIN) CAP PO SCH ×3 (08:43→22:52)
[2019-06-22] MEDS: PIPERACILLIN/TAZO 4.5 GM/NS 100 ML IV SCH ×6 (08:44→22:50)
--- NOTE | 2019-06-22 08:54 | Progress Note ---
Subjective Subjective Date Seen by Provider: Jun 22, 2019 Time Seen by Provider: 08:40 SHORTNESS OF BREATH, PNEUMONIA, LEFT LEG FRACTURE PT REPORTS THAT HE IS FEELING A LITTLE BIT BETTER THIS MORNING THAN LAST NIGHT. HE STATES THAT THE BACK OF HIS LEG FEELS BETTER TODAY AFTER THE POSTERIOR PORTION OF HIS SPLINT WAS REMOVED, BUT THE MEDIAL EDGE OF HIS CALF ON THE LEFT LEG WAS GETTING RUBBED BY THE SPLINT AND HE HAD TO HAVE THE NURSE PAD THAT LAST NIGHT. HE STATES THAT HE HAS LESS SHORTNESS OF BREATH. Review of Systems General: No Chills; Fatigue HEENT: No Dysphasia Pulmonary: Dyspnea, Cough Cardiovascular: No: Chest Pain, Palpitations Gastrointestinal: No: Nausea, Abdominal Pain Genitourinary: No Dysuria; Frequency Musculoskeletal: leg pain (LEFT LEG) Neurological: Weakness; No: Confusion All Other Systems Reviewed All Other Systems Reviewed: Yes Objective Exam Vital Signs Vital Signs - First Documented 06/21/19 06/21/19 06/21/19 05:41 06:20 08:11 Temp 36.8 Pulse 77 Resp 22 B/P (MAP) 183/98 (126) Pulse Ox 98 O2 Delivery Nasal Cannula O2 Flow Rate 50.00 FiO2 36 Capillary Refill : Less Than 3 SecondsLess Than 3 Seconds General Appearance: No Apparent Distress, WD/WN Eyes: Bilateral Eye Normal Inspection, Bilateral Eye PERRL, Bilateral Eye EOMI HEENT: PERRL/EOMI, Pharynx Normal Neck: Supple Respiratory: Chest Non Tender, Crackles, Decreased Breath Sounds Cardiovascular: Regular Rate, Rhythm Gastrointestinal: Normal Bowel Sounds, Non Tender, Soft Rectal: Deferred Extremity: No Pedal Edema, Other (LEFT LEG IN SPLINT) Neurologic/Psychiatric: Alert, Oriented x3, Normal Mood/Affect Skin: Warm/Dry, Other (GLUTEAL CLEFT AND SACRUM WITH SCATTERED ABRASIONS AND PRESSURE ULCERS ON RIGHT AND LEFT SIDE OF CLEFT AND IN CENTER OF CLEFT NEAR ANUS) Results Lab Laboratory Tests 06/21/19 10:35: Lactic Acid Level 0.96 06/22/19 03:02: White Blood Count 7.8, Red Blood Count 3.81L, Hemoglobin 10.7L, Hematocrit 33L, Mean Corpuscular Volume 87, Mean Corpuscular Hemoglobin 28, Mean Corpuscular Hemoglobin Concent 32, Red Cell Distribution Width 14.7H, Platelet Count 415H, Mean Platelet Volume 8.0, Neutrophils (%) (Auto) 92H, Lymphocytes (%) (Auto) 4L, Monocytes (%) (Auto) 4, Eosinophils (%) (Auto) 0, Basophils (%) (Auto) 0, Neutrophils # (Auto) 7.2, Lymphocytes # (Auto) 0.3L, Monocytes # (Auto) 0.3, Eosinophils # (Auto) 0.0, Basophils # (Auto) 0.0, Neutrophils % (Manual) 88, Lymphocytes % (Manual) 6, Monocytes % (Manual) 3, Band Neutrophils 3, Hyp ochromasia SLIGHT, Sodium Level 131L, Potassium Level 4.8, Chloride Level 94L, Carbon Dioxide Level 27, Anion Gap 10, Blood Urea Nitrogen 7, Creatinine 0.66, Estimat Glomerular Filtration Rate > 60, BUN/Creatinine Ratio 11, Glucose Level 132H, Calcium Level 9.2, Corrected Calcium 9.4, Total Bilirubin 0.3, Aspartate Amino Transf (AST/SGOT) 12, Alanine Aminotransferase (ALT/SGPT) 14, Alkaline Phosphatase 158H, Total Protein 7.1, Albumin 3.8 Microbiology 06/21/19 Influenza Types A,B Antigen (VY) - Final, Complete Assessment/Plan Assessment/Plan Admission Dx COPD EXACERBATION PNEUMONIA HYPONATREMIA PRESSURE ULCER BUTTOCK PRESSURE ULCER LEFT POSTERIOR THIGH SEIZURE DISORDER HYPERTENSION ELEVATED CRP TIBIAL AND FIBULA FRACTURE LEFT LEG 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 RUBY TO ADJUST THE POSTERIOR IMMOBILIZING SPLINT TO PREVENT FURTHER PRESSURE ON CURRENT WOUND - MEANWHILE I HAVE REMOVED THE POSTERIOR PORTION OF THE SPLINT. SEIZURE DISORDER - RESUMED HOME REGIMEN HYPERTENSION - CHRONIC - WILL RESTART AMLODIPINE ELEVATED CRP - DUE TO ACUTE ILLNESS, MONITOR AGAIN LATER THIS WEEK TIBIAL AND FIBULA FRACTURE LEFT LEG - CONSULT TO DR. 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
[2019-06-22] MEDS ORDERED: FLUTICASONE IH SCH (09:00)
[2019-06-22] MEDS ORDERED: RT-ALBUTEROL SULF 2.5 MG/3 ML PRE-MIX VIAL IH PRN (09:00)
[2019-06-22] MEDS ORDERED: HYDROcodone/APAP 5 MG/325 MG (LORTAB) TAB PO PRN (09:00)
[2019-06-22] MEDS ORDERED: [UNRECOGNIZED DRUG - OTHER] IH SCH (09:00)
[2019-06-22] MEDS ORDERED: SALMETEROL IH SCH (09:00)
[2019-06-22] MEDS ORDERED: ADVAIR HFA 115/21 MCG INHALER 8 GM IH SCH (09:03)
[2019-06-22] MEDS: predniSONE 10 MG TAB PO SCH (09:45)
[2019-06-22] MEDS: amLODIPine 5 MG (NORVASC) TAB PO SCH (09:45)
[2019-06-22] MEDS: ENOXAPARIN 40 MG/0.4 ML (LOVENOX) SYR SC SCH (09:46)
[2019-06-22] MEDS: GABAPENTIN 600 MG (NEURONTIN) TAB PO SCH ×2 (09:48→15:20)
--- NOTE | 2019-06-22 10:37 | NUR ---
Pt was discharged on June 10 to his homve with his Significant Other,Tabatha and her daughter both providing him 24 hour care. He was able to obtain all necessary equipment with the exception of a Hospital Bed. The referral remains pending at [facility] as unsure if insurance will approve. Last admission pt refused Home Health Care but the pt and Tabatha may agree to Home Health follow-up upon this discharge. Will follow and assist.
[2019-06-22] MEDS: lamoTRIgine 25 MG (LaMICtal) TAB PO SCH ×2 (10:47→15:20)
[2019-06-22] MEDS: ADVAIR HFA 115/21 MCG INHALER 8 GM IH SCH ×2 (11:09→18:57)
--- NOTE | 2019-06-22 11:10 | NUR ---
Pastoral care visit
[2019-06-22] MEDS: NS IV 1000 ML 1,000 ML IV SCH (12:39)
[2019-06-22] MEDS ORDERED: ZINC OXIDE 16% OINT (BUTT PASTE) 113 GM TUBE TOP PRN (15:00)
[2019-06-22] MEDS ORDERED: PHENYTOIN 100 MG (DILANTIN) CAP PO SCH (15:00)
[2019-06-22] MEDS: rOPINIRole 0.25 MG (REQUIP) TAB PO SCH (15:20)
[2019-06-22 16:09] VITALS: BP 148/81
[2019-06-22] MEDS: ACETAMINOPHEN 500 MG TAB (TYLENOL) PO PRN (18:26)
[2019-06-22 20:00] VITALS: BP 164/80
[2019-06-22] MEDS: GABAPENTIN 300 MG (NEURONTIN) CAP PO SCH (22:52)
[2019-06-23] VITALS (7 sets, daily range): BP systolic 121–155; BP diastolic 70–80
[2019-06-23] MEDS: NS IV 1000 ML 1,000 ML IV SCH ×2 (01:00→14:29)
[2019-06-23] MEDS: RT-ALBUTEROL/IPRATROPIUM 3 ML (DUONEB) VIAL INH SCH ×6 (01:56→21:26)
[2019-06-23] MEDS: carBAMazepine 200 MG (TEGretol) TAB PO SCH ×4 (04:24→23:06)
[2019-06-23] MEDS: predniSONE 10 MG TAB PO SCH (04:24)
[2019-06-23] MEDS: lamoTRIgine 25 MG (LaMICtal) TAB PO SCH ×2 (04:24→15:30)
[2019-06-23] MEDS: PHENYTOIN 100 MG (DILANTIN) CAP PO SCH ×4 (04:24→23:07)
[2019-06-23] MEDS: methylPREDNISolone 40 MG/ML (Solu-MEDROL) VIAL IV SCH (04:26)
[2019-06-23 06:40] LABS: BASOPHILS % (AUTO) 0 % (0-10); EOSINOPHILS % (AUTO) 0 % (0-10); HEMATOCRIT 31 % (40-54); HEMOGLOBIN 10.1 G/DL (13.3-17.7); LYMPHOCYTES # (AUTO) 0.4 X 10^3 (1.0-4.0); LYMPHOCYTES % (AUTO) 5 % (12-44); MEAN CORPUSCULAR HEMOGLOBIN 28 PG (25-34); MEAN CORPUSCULAR HGB CONC 33 G/DL (32-36); MEAN CORPUSCULAR VOLUME 85 FL (80-99); MEAN PLATELET VOLUME 8.1 FL (7.4-10.4); MONOCYTES # (AUTO) 0.5 X 10^3 (0.0-1.0); MONOCYTES % (AUTO) 6 % (0-12); NEUTROPHILS # (AUTO) 7.1 X 10^3 (1.8-7.8); NEUTROPHILS % (AUTO) 89 % (42-75); PLATELET COUNT 438 10^3/uL (130-400); RED CELL DISTRIBUTION WIDTH 14.6 % (10.0-14.5); WHITE BLOOD COUNT 7.9 10^3/uL (4.3-11.0)
[2019-06-23 06:53] LABS: ALANINE AMINOTRANSFERASE 10 U/L (0-55); ALBUMIN 3.8 GM/DL (3.2-4.5); ALKALINE PHOSPHATASE 137 U/L (40-136); BILIRUBIN,TOTAL 0.3 MG/DL (0.1-1.0); BUN/CREATININE RATIO 13; CARBON DIOXIDE 27 MMOL/L (21-32); CHLORIDE 91 MMOL/L (98-107); CREATININE SERUM 0.68 MG/DL (0.60-1.30); GFR ESTIMATED > 60; GLUCOSE 128 MG/DL (70-105); POTASSIUM 4.5 MMOL/L (3.6-5.0); SODIUM 128 MMOL/L (135-145); TOTAL PROTEIN 6.8 GM/DL (6.4-8.2)
[2019-06-23] MEDS: ADVAIR HFA 115/21 MCG INHALER 8 GM IH SCH ×2 (07:16→18:46)
[2019-06-23] MEDS: PIPERACILLIN/TAZO 4.5 GM/NS 100 ML IV SCH ×6 (07:44→23:06)
[2019-06-23] MEDS: PANTOPRAZOLE 20 MG TABLET (PROTONIX) PO SCH (07:45)
[2019-06-23] MEDS: GABAPENTIN 600 MG (NEURONTIN) TAB PO SCH ×2 (07:45→15:30)
[2019-06-23] MEDS: amLODIPine 5 MG (NORVASC) TAB PO SCH (07:45)
[2019-06-23] MEDS: ENOXAPARIN 40 MG/0.4 ML (LOVENOX) SYR SC SCH (07:46)
[2019-06-23] MEDS ORDERED: NS IV 500 ML 500 ML IV SCH (08:34)
--- NOTE | 2019-06-23 08:37 | Progress Note ---
Subjective Subjective Date Seen by Provider: Jun 23, 2019 Time Seen by Provider: 08:45 PT IS ADMITTED FOR COPD EXACERBATION, PNEUMONIA, HYPONATREMIA, FX OF LEFT LEG TIB/FIB WITH ULCER FROM SPLINT PT REPORTS THAT HE IS FEELING MUCH BETTER, HIS LEG DOES NOT HURT BADLY, THE SPLINT WAS RECENTLY ADJUSTED BY IRVIN TODD NP FOR DR. RUBY. PT REPORTS THAT HIS BREATHING IS BETTER WELL. HE STATES THAT HE IS FEELING BETTER ON HIS NORMAL OXYGEN REQUIREMENT OF 3 LITERS. HE STATES THAT HE HAS BEEN DRINKING A LOT OF WATER DUE TO DRY MOUTH - HE DRINKS AT LEAST 2-3 LITERS OF WATER A DAY. Review of Systems General: No Chills; Fatigue HEENT: No Head Aches; Other (DRY MOUTH) Pulmonary: No Dyspnea; Cough Cardiovascular: No: Chest Pain Gastrointestinal: No: Nausea, Abdominal Pain Genitourinary: Frequency Musculoskeletal: leg pain (LEFT LEG) Neurological: Weakness; No: Confusion All Other Systems Reviewed All Other Systems Reviewed: Yes Objective Exam Vital Signs Vital Signs - First Documented 06/21/19 06/21/19 06/21/19 05:41 06:20 08:11 Temp 36.8 Pulse 77 Resp 22 B/P (MAP) 183/98 (126) Pulse Ox 98 O2 Delivery Nasal Cannula O2 Flow Rate 50.00 FiO2 36 Capillary Refill : Less Than 3 SecondsLess Than 3 Seconds General Appearance: WD/WN Eyes: Bilateral Eye Normal Inspection, Bilateral Eye PERRL, Bilateral Eye EOMI HEENT: PERRL/EOMI, Pharynx Normal Neck: Full Range of Motion, Non Tender, Supple Respiratory: Crackles (INBASES), Decreased Breath Sounds Cardiovascular: Regular Rate, Rhythm Gastrointestinal: Normal Bowel Sounds, Non Tender, Soft Rectal: Deferred Extremity: Normal Capillary Refill, Other (CHARCOT APPEARING FOOT IN SPLINT) Neurologic/Psychiatric: Alert, Oriented x3, Normal Mood/Affect Skin: Other (DRESSINGS IN PLACE ON POSTERIOR LEFT THIGH AND ON BUTTOCK/SACRUM) Results Lab Laboratory Tests 06/23/19 06:06: White Blood Count 7.9, Red Blood Count 3.65L, Hemoglobin 10.1L, Hematocrit 31L, Mean Corpuscular Volume 85, Mean Corpuscular Hemoglobin 28, Mean Corpuscular Hemoglobin Concent 33, Red Cell Distribution Width 14.6H, Platelet Count 438H, Mean Platelet Volume 8.1, Neutrophils (%) (Auto) 89H, Lymphocytes (%) (Auto) 5L, Monocytes (%) (Auto) 6, Eosinophils (%) (Auto) 0, Basophils (%) (Auto) 0, Neutrophils # (Auto) 7.1, Lymphocytes # (Auto) 0.4L, Monocytes # (Auto) 0.5, Eosinophils # (Auto) 0.0, Basophils # (Auto) 0.0, Sodium Level 128L, Potassium Level 4.5, Chloride Level 91L, Carbon Dioxide Level 27, Anion Gap 10, Blood Urea Nitrogen 9, Creatinine 0.68, Estimat Glomerular Filtration Rate > 60, BUN/Creatinine Ratio 13, Glucose Level 128H, Calcium Level 9.0, Corrected Calcium 9.2, Total Bilirubin 0.3, Aspartate Amino Transf (AST/SGOT) 12, Alanine Aminotransferase (ALT/SGPT) 10, Alkaline Phosphatase 137H, Total Protein 6.8, Albumin 3.8 Microbiology 06/21/19 Gram Stain - Final, Resulted 06/21/19 Wound Culture - Preliminary, Resulted Gram Pos Mixed Bacterial Maged 06/21/19 Blood Culture - Preliminary, Resulted No growth 06/21/19 Influenza Types A,B Antigen (VY) - Final, Complete Assessment/Plan Assessment/Plan Admission Dx COPD EXACERBATION PNEUMONIA HYPONATREMIA PRESSURE ULCER BUTTOCK PRESSURE ULCER LEFT POSTERIOR THIGH SEIZURE DISORDER HYPERTENSION ELEVATED CRP TIBIAL AND FIBULA FRACTURE LEFT LEG 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 - DR. RUBY/IRVIN TODD SAW PT TODAY - ADJUSTED SPLINT, RECOMMENDED FOR CR TO BE SEEN IN THEIR CLINIC FOR A FULL CAST - HE DID NOT SHOW UP TO EXPECTED APPT AFTER HIS DC ON 06/08/2019. SEIZURE DISORDER - RESUMED HOME REGIMEN HYPERTENSION - CHRONIC - RESTARTED AMLODIPINE ELEVATED CRP - DUE TO ACUTE ILLNESS, MONITOR AGAIN LATER THIS WEEK TIBIAL AND FIBULA FRACTURE LEFT LEG - SPLINT ADJUSTED - WILL NEED APPT WITH [facility] ON DISCHARGE FOR APPROPRIATE CAST ON LEG. 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 RUBY CONSULTED TO ADJUST THE POSTERIOR IMMOBILIZING SPLINT TO PREVENT FURTHER PRESSURE ON CURRENT WOUND - MEANWHILE I HAVE REMOVED THE POSTERIOR PORTION OF THE SPLINT. SEIZURE DISORDER - RESUMED HOME REGIMEN HYPERTENSION - CHRONIC - WILL RESTART AMLODIPINE ELEVATED CRP - DUE TO ACUTE ILLNESS, MONITOR AGAIN LATER THIS WEEK TIBIAL AND FIBULA FRACTURE LEFT LEG - CONSULT TO DR. 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 RUBY CONSULTED TO ADJUST THE POSTERIOR IMMOBILIZING SPLINT TO PREVENT FURTHER PRESSURE ON CURRENT WOUND - MEANWHILE I HAVE REMOVED THE POSTERIOR PORTION OF THE SPLINT. SEIZURE DISORDER - RESUMED HOME REGIMEN HYPERTENSION - CHRONIC - WILL RESTART AMLODIPINE ELEVATED CRP - DUE TO ACUTE ILLNESS, MONITOR AGAIN LATER THIS WEEK TIBIAL AND FIBULA FRACTURE LEFT LEG - CONSULT TO DR. 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
[2019-06-23] MEDS ORDERED: IRON DEXTRAN INJECTION 25 MG in NS (IVPB) 5.75 ML IV NR (08:45)
[2019-06-23] MEDS ORDERED: RT-ALBUTEROL SULF 2.5 MG/3 ML PRE-MIX VIAL IH PRN (08:45)
[2019-06-23] MEDS ORDERED: EPINEPHrine INJECTION 1 MG/ML AMP IM PRN (08:45)
[2019-06-23] MEDS ORDERED: diphenhydrAMINE 50 MG/ML INJ (BENADRYL) IV PRN (08:45)
[2019-06-23] MEDS ORDERED: HYDROCORTISONE 100 MG/2 ML (Solu-CORTEF) VIAL IV PRN (08:45)
[2019-06-23] MEDS ORDERED: IRON DEXTRAN INJECTION 1,000 MG in NS (IVPB) 250 ML IV NR (09:00)
--- NOTE | 2019-06-23 09:34 | Diagnostic Imaging Report ---
INDICATION: Pneumonia. Cough. COMPARISON: 06/21/2019. FINDINGS: Consolidated infiltrate in the right lower lobe remains present. The left lung appears clear now. The upper lungs are clear. The heart is not enlarged. The Port-A-Cath on the right is unchanged. No pneumothorax or pleural effusion. IMPRESSION: Consolidated infiltrate in the right lower lung remains present. The left lung does appear well-aerated and clear now. Dictated by: Dictated on workstation # [id number]
--- NOTE | 2019-06-23 10:05 | CONSULTATION REPORT ---
DATE OF SERVICE: INPATIENT CONSULTATION REASON FOR CONSULTATION: Left tibia fracture, splint application. HISTORY OF PRESENT ILLNESS: The patient is a 63-year-old gentleman with a known left tibia fracture. This underwent closed reduction in the Emergency Department with splint application. He was to followed up as an outpatient, but presented back with pulmonary issues as well as a pressure area at the proximal aspect of the splint. The posterior aspect of the splint was removed. We were asked to reapply this. Today, the posterior aspect of the splint was replaced. It was well padded and folded back on itself to create no pressure areas. He is to follow up in 2 weeks as an outpatient with x-rays of the left tibia on arrival. Job ID: [id number] DocumentID: [id number] Dictated Date: 06/23/2019 08:53:38 Well Tester Date: 06/23/2019 10:04:33 Dictated By: SHARON RUBY MD
--- NOTE | 2019-06-23 11:02 | NUR ---
"RD ASSESSMENT PMHx: COPD; emphysema; hypercholesterolemia; HTN; seizure disorder; CA(bone,lung); Fracture (06/08/2019) PT INTERACTION: Pt was awake and pleasant during nutrition assessment. Pt states current appetite is pretty good. Note avg PO intake 50-75% x2d, per chart review. Pt states no recent issues with n/v/c/d at this time. Note last BM was 06/20 and pt not currently on bowel regimen per chart review. Pt states no recent wt changes. Note no recent wt changes, per chart review. Note presence of wounds (buttocks, left posterior thigh) per chart review. ABNORMAL NUTRITION-RELATED LAB VALUES LOW: Na 128; Cl 91 HIGH: glu 128; alkphos 137 Est. kcal needs: 0469-3424 kcal | 25-30 kcal/kg Est. Pro needs: 88-102 g Pro | 1.2-1.4 g Pro/kg PES STATEMENT: Inadequate oral intake (NI-2.1) related to loss of appetite as evidenced by pt interview | avg PO intake 50-75% x2d Inadequate protein intake (NI-5.6.1) related to increased protein needs as evidenced by presence of wounds (buttock, left posterior thigh) INTERVENTION: Continue with current diet order of Regular diet. Add Ensure HP (vary) to meals TID. Provides 160 kcal and 16 g Pro per serving for perceived benefit to wound healing. Will continue to follow and reassess as pt needs, intake, and status change. MONITOR/EVALUATE: PO Intake; Plan of Care; Hydration Status; Weight Status; Lab Values Garett Oliver, MS, RD, LD"
[2019-06-23] MEDS: UMECLIDINIUM BROMIDE (INCRUSE ELLIPTA) 7'S IH SCH (14:27)
[2019-06-23] MEDS: rOPINIRole 0.25 MG (REQUIP) TAB PO SCH (15:30)
[2019-06-23] MEDS: ACETAMINOPHEN 500 MG TAB (TYLENOL) PO PRN (20:04)
[2019-06-23] MEDS: GABAPENTIN 300 MG (NEURONTIN) CAP PO SCH (23:06)
[2019-06-24] MEDS: PHENYTOIN 100 MG (DILANTIN) CAP PO SCH ×4 (03:05→23:42)
[2019-06-24] MEDS: lamoTRIgine 25 MG (LaMICtal) TAB PO SCH ×2 (03:06→15:14)
[2019-06-24] MEDS: carBAMazepine 200 MG (TEGretol) TAB PO SCH ×4 (03:06→23:42)
[2019-06-24] MEDS: NS IV 1000 ML 1,000 ML IV SCH ×2 (03:29→13:38)
[2019-06-24] MEDS: RT-ALBUTEROL/IPRATROPIUM 3 ML (DUONEB) VIAL INH SCH ×5 (03:35→19:57)
[2019-06-24 04:04] VITALS: BP 141/71
[2019-06-24 05:26] LABS: BASOPHILS % (AUTO) 0 % (0-10); EOSINOPHILS % (AUTO) 0 % (0-10); HEMATOCRIT 29 % (40-54); HEMOGLOBIN 9.5 G/DL (13.3-17.7); LYMPHOCYTES # (AUTO) 0.7 X 10^3 (1.0-4.0); LYMPHOCYTES % (AUTO) 12 % (12-44); MEAN CORPUSCULAR HEMOGLOBIN 28 PG (25-34); MEAN CORPUSCULAR HGB CONC 33 G/DL (32-36); MEAN CORPUSCULAR VOLUME 86 FL (80-99); MEAN PLATELET VOLUME 8.1 FL (7.4-10.4); MONOCYTES % (AUTO) 17 % (0-12); NEUTROPHILS # (AUTO) 4.3 X 10^3 (1.8-7.8); NEUTROPHILS % (AUTO) 71 % (42-75); PLATELET COUNT 413 10^3/uL (130-400); RED CELL DISTRIBUTION WIDTH 14.8 % (10.0-14.5)
[2019-06-24 05:30] LABS: ALANINE AMINOTRANSFERASE 16 U/L (0-55); ALBUMIN 3.5 GM/DL (3.2-4.5); ALKALINE PHOSPHATASE 133 U/L (40-136); BILIRUBIN,TOTAL 0.2 MG/DL (0.1-1.0); BUN/CREATININE RATIO 11; CALCIUM 8.4 MG/DL (8.5-10.1); CARBON DIOXIDE 29 MMOL/L (21-32); CHLORIDE 94 MMOL/L (98-107); CREATININE SERUM 0.72 MG/DL (0.60-1.30); GFR ESTIMATED > 60; GLUCOSE 114 MG/DL (70-105); POTASSIUM 3.9 MMOL/L (3.6-5.0); SODIUM 132 MMOL/L (135-145); TOTAL PROTEIN 6.2 GM/DL (6.4-8.2)
[2019-06-24] MEDS: PIPERACILLIN/TAZO 4.5 GM/NS 100 ML IV SCH ×6 (06:26→23:43)
[2019-06-24] MEDS: predniSONE 10 MG TAB PO SCH (06:26)
[2019-06-24] MEDS: ADVAIR HFA 115/21 MCG INHALER 8 GM IH SCH ×2 (07:49→21:31)
[2019-06-24 08:00] VITALS: BP 138/69
[2019-06-24] MEDS: PANTOPRAZOLE 20 MG TABLET (PROTONIX) PO SCH (08:22)
[2019-06-24] MEDS: amLODIPine 5 MG (NORVASC) TAB PO SCH (08:22)
[2019-06-24] MEDS: GABAPENTIN 600 MG (NEURONTIN) TAB PO SCH ×2 (08:22→15:14)
[2019-06-24] MEDS: ENOXAPARIN 40 MG/0.4 ML (LOVENOX) SYR SC SCH (08:23)
--- NOTE | 2019-06-24 09:43 | NUR ---
Anticipating pt's discharge home on Friday. Hospital bed will be delivered on Friday morning and Significant Other Tabatha notified. Pt will likely need EMS transport home.
[2019-06-24 12:00] VITALS: BP 146/74
[2019-06-24 13:08] VITALS: BP 146/74
[2019-06-24] MEDS: UMECLIDINIUM BROMIDE (INCRUSE ELLIPTA) 7'S IH SCH (14:49)
[2019-06-24] MEDS: rOPINIRole 0.25 MG (REQUIP) TAB PO SCH (15:14)
[2019-06-24 16:26] VITALS: BP 148/88
[2019-06-24 20:01] VITALS: BP 144/88
[2019-06-24] MEDS: ACETAMINOPHEN 500 MG TAB (TYLENOL) PO PRN (21:31)
[2019-06-24] MEDS: GABAPENTIN 300 MG (NEURONTIN) CAP PO SCH (23:42)
[2019-06-25 00:20] VITALS: BP 155/78
[2019-06-25] MEDS: RT-ALBUTEROL/IPRATROPIUM 3 ML (DUONEB) VIAL INH SCH ×4 (01:40→09:40)
[2019-06-25] MEDS: PHENYTOIN 100 MG (DILANTIN) CAP PO SCH ×2 (02:32→08:28)
[2019-06-25] MEDS: lamoTRIgine 25 MG (LaMICtal) TAB PO SCH (02:32)
[2019-06-25] MEDS: carBAMazepine 200 MG (TEGretol) TAB PO SCH ×2 (02:32→08:29)
[2019-06-25 04:00] VITALS: BP 159/79
[2019-06-25] MEDS: predniSONE 10 MG TAB PO SCH (05:59)
[2019-06-25] MEDS: NS IV 1000 ML 1,000 ML IV SCH (06:00)
[2019-06-25] MEDS: PIPERACILLIN/TAZO 4.5 GM/NS 100 ML IV SCH ×2 (06:00)
--- NOTE | 2019-06-25 07:57 | Discharge Summary ---
Diagnosis/Chief Complaint Date of Admission Jun 21, 2019 at 09:11 Date of Discharge Discharge Date: Jun 25, 2019 Discharge Time: 10:00 Admission Diagnosis Admission Diagnosis COPD EXACERBATION PNEUMONIA HYPONATREMIA PRESSURE ULCER BUTTOCK PRESSURE ULCER LEFT POSTERIOR THIGH SEIZURE DISORDER HYPERTENSION ELEVATED CRP TIBIAL AND FIBULA FRACTURE LEFT LEG CHRONIC IMMUNOSUPPRESSION DUE TO STEROID USE ANEMIA Discharge Diagnosis COPD EXACERBATION PNEUMONIA HYPONATREMIA PRESSURE ULCER BUTTOCK PRESSURE ULCER LEFT POSTERIOR THIGH SEIZURE DISORDER HYPERTENSION ELEVATED CRP TIBIAL AND FIBULA FRACTURE LEFT LEG CHRONIC IMMUNOSUPPRESSION DUE TO STEROID USE ANEMIA Reason Hospital Visit PT IS A 63 Y/O MALE WHO IS A 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 HE PRESENTED TO THE HOSPITAL WITH WORSENING OF HIS USUAL SHORTNESS OF BREATH AND COUGH. HE REPORTS THAT HE HAS NOT BEEN OUT OF THE HOUSE SINCE HIS TIB/FIB FRACTURE ON 06/08/2019 AND HE HAS NOT HAD A FEVER, JUST WORSENING COUGH AND SOA. UPON ER EVALUATION, HE HAD PNEUMONIA BY XRAY AND ELEVATED CRP IN THE ICU IT WAS NOTED THAT THERE WAS A STRONG SMELL COMING FROM HIS ROOM AND PT WAS QUESTIONING ABOUT SOME RELIEF OF THE SEVERE PAIN IN THE BACK OF HIS LEFT KNEE/THIGH. HE DENIES CHEST PAIN, ABDOMINAL PAIN, NAUSEA. Discharge Summary Discharge Physical Examination Allergies: Coded Allergies: aspirin (Unverified Allergy, Mild, DOES NOT WORK WELL W/ OTHER MEDS, 10/05/18) ibuprofen (Unverified Allergy, Mild, 10/05/18) Vitals & I&Os Vital Signs Date Time Temp Pulse Resp B/P (MAP) Pulse Ox O2 Delivery O2 Flow Rate FiO2 06/25/19 04:00 37.2 81 22 159/79 (105) 92 High Flow N/C 3.00 06/24/19 13:08 32 General Appearance: Alert, Oriented X3, Cooperative, No Acute Distress HEENT: PERRLA Respiratory: Other (improved air movement throughout - but still with crackles in bases bilaterally) Cardiovascular: Regular Rate Abdominal: Normal Bowel Sounds, Soft, No Tenderness Skin: Other (dressings on buttock and posterior left thigh) Psych/Mental Status: Mental Status NL, Mood NL Hospital Course COPD EXACERBATION PNEUMONIA HYPONATREMIA PRESSURE ULCER BUTTOCK PRESSURE ULCER LEFT POSTERIOR THIGH SEIZURE DISORDER HYPERTENSION ELEVATED CRP TIBIAL AND FIBULA FRACTURE LEFT LEG CHRONIC IMMUNOSUPPRESSION DUE TO STEROID USE ANEMIA COPD EXACERBATION WITH PNEUMONIA - ADMISSION FOR TREATMENT OF PNEUMONIA AND COPD EXACERBATION - IMPROVED ON ZOSYN, WILL CHANGE TO CEFDINIR AND AZITHROMYCIN ORALLY X 5 DAYS EACH, INHALERS, BREATHING TREATMENTS, RESTARTED HOME STEROID REGIMEN HYPONATREMIA - IMPROVED - CONTINUE WITH A 1 LITER WATER RESTRICTION AND ALLOW TEA, COFFEE AND GATORADE PRESSURE ULCER BUTTOCK AND PRESSURE ULCER LEFT POSTERIOR THIGH - CONSULTED WOUND CARE, CULTURE OBTAINED FROM LEFT POSTERIOR THIGH - MULTIPLE NORMAL MAGED BACTERIA PRESENT. - DR. RUBY/IRVIN TODD SAW PT - ADJUSTED SPLINT, UPPER AND LOWER BODY WEAKNESS - - PT UNABLE TO REPOSITION SELF SAFELY WITHOUT ASSISTANCE WHICH IS NOT AVAILABLE AT HOME DURING THE DAY, HE CANNOT PUSH HIMSELF UP DUE TO UPPER BODY WEAKNESS, AND HAS BREAKDOWN OF HIS SACRUM AND GLUTEUS WELL POSTERIOR THIGH ULCERATION. HE HAS SEVERE COPD WITH RECURRENT PNEUMONIA DUE TO HIS PREVIOUS INABILITY TO POSITION HIMSELF AT A 30 DEGREE ANGLE - I HAVE RECOMMENDED A HOSPITAL BED WITH FULL ELECTRONIC CONTROL TO ELEVATE HIS LEG WELL THE HEAD OF THE BED TO AT LEAST 30 DEGREES AND A LOW AIR LOSS MATTRESS TO HELP PREVENT FURTHER BREAK DOWN OF HIS SACRAL TISSUE AND POSTERIOR THIGH FROM THE PRESSURE OF THE CAST ON HIS LEFT LEG. HE WILL NEED THE HOSPITAL BED FOR LIFETIME DUE TO HIS OVERALL FRAIL AND DEBILITATED STATUS FROM HIS PREVIOUS LUNG CANCER WHICH IS METASTATIC TO THE BONE. SEIZURE DISORDER - RESUMED HOME REGIMEN HYPERTENSION - CHRONIC - RESTARTED AMLODIPINE ELEVATED CRP - DUE TO ACUTE ILLNESS, MONITOR AGAIN LATER THIS WEEK TIBIAL AND FIBULA FRACTURE LEFT LEG - SPLINT ADJUSTED - WILL NEED APPT WITH [facility] ON DISCHARGE FOR APPROPRIATE CAST ON LEG. CHRONIC IMMUNOSUPPRESSION DUE TO STEROID USE - RESTARTED STEROID ANEMIA - IRON DEFICIENCY - INFED WAS GIVEN IN HOSPITAL. DVT PROPHYLAXIS WITH LOVENOX GI PROPHYLAXIS WITH PROBIOTIC AND H2 MELA Discharge Condition at discharge improved Instructions to patient/family Please see electronic discharge instructions given to patient. Discharge Medications Reviewed and agree with Discharge Medication list on patient's Discharge Instruction sheet Clinical Quality Measures DVT/VTE Risk/Contraindication: Risk Factor Score Per Nursin RFS Level Per Nursing on Admit: 4+=Very High Contraindications-Pharm: Other *list below* Contraindications-Mechi: Other *list below* Other: LEFT LEG IN SPLINT, CANNOT AMBULATE ON LEG BALBIR LARA MD Jun 25, 2019 07:57
--- NOTE | 2019-06-25 07:58 | Progress Note ---
Subjective Subjective Date Seen by Provider: Jun 24, 2019 Time Seen by Provider: 08:40 PT IS ADMITTED FOR COPD EXACERBATION, PNEUMONIA, HYPONATREMIA, FX OF LEFT LEG TIB/FIB WITH ULCER FROM SPLINT PT REPORTS THAT HE IS FEELING MUCH BETTER, HIS LEG DOES NOT HURT BADLY DUE TO THE ADJUSTMENT OF THE CAST. HE STILL HAS PAIN WITH MOVEMENT OF THE LEG. HE ALSO HAS SOME DISCOMFORT IN HIS SACRAL TISSUE. Review of Systems General: No Chills; Fatigue HEENT: No Head Aches; Other (DRY MOUTH) Pulmonary: No Dyspnea; Cough Cardiovascular: No: Chest Pain Gastrointestinal: No: Nausea, Abdominal Pain Genitourinary: Frequency Musculoskeletal: leg pain (LEFT LEG) Neurological: Weakness; No: Confusion All Other Systems Reviewed All Other Systems Reviewed: Yes Objective Exam Vital Signs Vital Signs - First Documented 06/21/19 06/21/19 06/21/19 05:41 06:20 08:11 Temp 36.8 Pulse 77 Resp 22 B/P (MAP) 183/98 (126) Pulse Ox 98 O2 Delivery Nasal Cannula O2 Flow Rate 50.00 FiO2 36 Capillary Refill : Less Than 3 SecondsLess Than 3 Seconds General Appearance: WD/WN Eyes: Bilateral Eye Normal Inspection, Bilateral Eye PERRL, Bilateral Eye EOMI HEENT: PERRL/EOMI, Pharynx Normal Neck: Full Range of Motion, Non Tender, Supple Respiratory: Crackles (INBASES), Decreased Breath Sounds Cardiovascular: Regular Rate, Rhythm Gastrointestinal: Normal Bowel Sounds, Non Tender, Soft Rectal: Deferred Extremity: Normal Capillary Refill, Other (CHARCOT APPEARING FOOT IN SPLINT) Neurologic/Psychiatric: Alert, Oriented x3, Normal Mood/Affect Skin: Other (DRESSINGS IN PLACE ON POSTERIOR LEFT THIGH AND ON BUTTOCK/SACRUM) Results Lab Microbiology 06/21/19 Gram Stain - Final, Complete 06/21/19 Wound Culture - Final, Complete Gram Pos Mixed Bacterial Clau Normal skin clau 06/21/19 Blood Culture - Preliminary, Resulted No growth 06/21/19 Influenza Types A,B Antigen (VY) - Final, Complete Assessment/Plan Assessment/Plan Admission Dx COPD EXACERBATION PNEUMONIA HYPONATREMIA PRESSURE ULCER BUTTOCK PRESSURE ULCER LEFT POSTERIOR THIGH SEIZURE DISORDER HYPERTENSION ELEVATED CRP TIBIAL AND FIBULA FRACTURE LEFT LEG CHRONIC IMMUNOSUPPRESSION DUE TO STEROID USE ANEMIA COPD EXACERBATION WITH PNEUMONIA - ADMISSION FOR TREATMENT OF PNEUMONIA AND COPD EXACERBATION - CONTINUE WITH TREATMENT WITH IV ANTIBIOTICS, INHALERS, BREATHING TREATMENTS, RESTARTED HOME STEROID REGIMEN (DC IV STEROIDS TODAY) - MONITOR SERIAL CXR - REPEAT TODAY HYPONATREMIA - WORSENING - WILL GIVE A 1 LITER WATER RESTRICTION AND ALLOW TEA, COFFEE AND GATORADE, CONTINUE WITH IV FLUIDS, MONITOR LABS PRESSURE ULCER BUTTOCK AND PRESSURE ULCER LEFT POSTERIOR THIGH - CONSULTED WOUND CARE, CULTURE OBTAINED FROM LEFT POSTERIOR THIGH - MULTIPLE NORMAL CALU BACTERIA PRESENT. - DR. RUBY/IRVIN TODD SAW PT TODAY - ADJUSTED SPLINT, RECOMMENDED FOR CR TO BE SEEN IN THEIR CLINIC FOR A FULL CAST - HE DID NOT SHOW UP TO EXPECTED APPT AFTER HIS DC ON 06/08/2019. SEIZURE DISORDER - RESUMED HOME REGIMEN HYPERTENSION - CHRONIC - RESTARTED AMLODIPINE TIBIAL AND FIBULA FRACTURE LEFT LEG - SPLINT ADJUSTED CHRONIC IMMUNOSUPPRESSION DUE TO STEROID USE - RESTARTED STEROID ANEMIA - IRON DEFICIENCY - INFED GIVEN DVT PROPHYLAXIS WITH LOVENOX GI PROPHYLAXIS WITH PROBIOTIC AND H2 MELA Admission Dx COPD EXACERBATION PNEUMONIA HYPONATREMIA PRESSURE ULCER BUTTOCK PRESSURE ULCER LEFT POSTERIOR THIGH SEIZURE DISORDER HYPERTENSION ELEVATED CRP TIBIAL AND FIBULA FRACTURE LEFT LEG CHRONIC IMMUNOSUPPRESSION DUE TO STEROID USE ANEMIA Clinical Quality Measures Admission Status Admission Dx COPD EXACERBATION PNEUMONIA HYPONATREMIA PRESSURE ULCER BUTTOCK PRESSURE ULCER LEFT POSTERIOR THIGH SEIZURE DISORDER HYPERTENSION ELEVATED CRP TIBIAL AND FIBULA FRACTURE LEFT LEG CHRONIC IMMUNOSUPPRESSION DUE TO STEROID USE ANEMIA DVT/VTE Risk/Contraindication: Risk Factor Score Per Nursin RFS Level Per Nursing on Admit: 4+=Very High Contraindications-Pharm: Other *list below* Contraindications-Mechi: Other *list below* Other: LEFT LEG IN SPLINT, CANNOT AMBULATE ON LEG BALBIR LARA MD Jun 25, 2019 07:58
[2019-06-25 08:00] VITALS: BP_SYST 110; BP_SYST 160; BP_DIAS 67; BP_DIAS 77
[2019-06-25] MEDS ORDERED: AZIT250T12 PO (08:25)
[2019-06-25] MEDS ORDERED: CEFD300C3 PO (08:25)
[2019-06-25] MEDS ORDERED: ZINC28PA TOP (08:25)
[2019-06-25] MEDS: PANTOPRAZOLE 20 MG TABLET (PROTONIX) PO SCH (08:28)
[2019-06-25] MEDS: amLODIPine 5 MG (NORVASC) TAB PO SCH (08:28)
[2019-06-25] MEDS: GABAPENTIN 600 MG (NEURONTIN) TAB PO SCH (08:29)
[2019-06-25] MEDS: ENOXAPARIN 40 MG/0.4 ML (LOVENOX) SYR SC SCH (08:29)
--- NOTE | 2019-06-25 08:33 | D/C HH Face to Face Order ---
D/C Face to Face Orders Reconcile Patient Problems Problems Reviewed?: Yes Instructions for Patient [facility] Patient Instructions/FollowUp: call [facility] office in 2 weeks to see if they are back to seeing patients in the office follow up with dr. felder in the next 3-4 weeks Physician to follow Patient: kanwal Discharge Diet for Home: Regular Diet Patient Problems: pressure ulcer of left posterior thigh and scattered pressure ulcers across gluteus and sacrum, left tibial and fibular fractures, recurrent pneumonia, copd Patient Data-Allergies,Ht & Wt Patient Allergies: Coded Allergies: aspirin (Unverified Allergy, Mild, DOES NOT WORK WELL W/ OTHER MEDS, ) ibuprofen (Unverified Allergy, Mild, 10/05/18) Height (Feet): 6 Height (Inches): 0 Weight (Pounds): 174 Weight (Ounces): 3.0 Home Health Need/Face to Face Date of Face to Face: Jun 25, 2019 Clinical Findings: Generalized weakness and fatigue, Instability, Muscle weakness, Non or partial weight bearing, Shortness of breath, Wound infection, Non-healing wound (on sacrum) I have seen Pt [id number]: Yes Discharged To: Home Diagnosis/Conditions: pressure ulcer of left posterior thigh and scattered pressure ulcers across gluteus and sacrum, left tibial and fibular fractures, recurrent pneumonia, copd Patient is Homebound due to: Ian fall risk due to instabilty, Non-weight bearing, Shortness of breath/distress Homebound Status Due to the above stated illness, injury or surgical procedure (medical condition or diagnosis) and associated clinical findings, the patient is homebound because of his/her inability to leave home except with aid of a supportive device and/or person AND leaving the home requires a considerable and taxing effort or is medically contraindicated. Pt req the following assistanc: Medically contraindicated Home Health Nursing Orders Home Health Services Order: Nursing Services, Hardboard Press Operator-Evaluate & Treat, Physical Therapy-Evaluate & Treat, Wound Care-Eval/Treat Home Health Infusion Therapy Line Start Date: Jun 21, 2019 Therapy Orders Therapy Orders: Physical Therapy (nonweight bearing on left lower leg), PT to assess for OT Therapy Specific Orders: Teach enviro modifications/safety, Increase strength/endurance, Provider maintenance therapy Certify Stmt I certify that this patient is under my care and that I, a nurse practitioner or a physician; a judicial administrative assistant working with me, had a face to face encounter that - meets the physician face to face encounter requirements with this patient as dated. BALBIR LARA MD Jun 25, 2019 08:33
--- NOTE | 2019-06-25 08:41 | Diagnostic Imaging Report ---
HISTORY: Pneumonia. TECHNIQUE: 2 views of the chest. COMPARISON: 06/23/2019 FINDINGS: There are airspace opacities in the lung bases, right greater than left. Overall aeration appears mildly improved. The right Port-A-Cath tip projects over the SVC. No pleural effusion or pneumothorax is seen. There are marked degenerative changes in the bilateral shoulders. IMPRESSION: 1. Redemonstrated bibasilar airspace opacities, right greater than left, with mildly improved aeration compared to the prior study. Dictated by: Dictated on workstation # [id number]
[2019-06-25] MEDS: UMECLIDINIUM BROMIDE (INCRUSE ELLIPTA) 7'S IH SCH (09:40)
[2019-06-25] MEDS: ADVAIR HFA 115/21 MCG INHALER 8 GM IH SCH (09:41)
--- NOTE | 2019-06-25 13:10 | NUR ---
Pt discharge home by EMS transport Home Health care referral made to [facility] but unable to accept as not contracted with pt's Medicare-Medicaid insurance. Referral made to [facility] which does have a contract with pt's insurance and awaiting their acceptance.Pt has 24 hour care from his Significant Other Tabatha and her daughter who are both CASH REGISTER MECHANIC's. A hospital bed was delivered today which should make help his caregivers provide him adequate care.Will follow
--- NOTE | 2019-06-25 14:30 | NUR ---
[facility] refused to provide pt home health services as felt that his needs exceeded what they could provide. Contacting pt's case finishing machine adjuster to see if pt's insurance has contracted with any other agency in the area.
--- NOTE | 2019-06-25 16:22 | NUR ---
Contacted several home health agencies for possible services-[facility], [facility], [facility] and no one could provide services as not contracted with Medicare-[facility] insurance. Contacted pt's [employer] and they to were unsuccessful also in locating a home Health service that would provide services. They have referred to their dept. that contracts and is to find a home health care agency.They are to contact pt or his DPOA and once they locate a service I will be glad to fax physician orders. Notified Dr. Feng and will notify pt's DPOA Tabatha.Reference # I [id number].
== END 2019-06-25 11:50 | disposition home health service (06) | DRG 190 ==
LOC: EDUNIT# 05:36 → ER 05:38 → ICU 09:11 → 4TH 06-22 12:50
PROVIDERS: ADMIT Family Medicine; ATTEND Family Medicine
DX: J44.1 Chronic obstructive pulmonary disease with (acute) exacerbation (principal); J18.9 Pneumonia, unspecified organism; E87.2 Acidosis; G40.909 Epilepsy, unspecified, not intractable, without status epilepticus; L89.152 Pressure ulcer of sacral region, stage 2; L89.151 Pressure ulcer of sacral region, stage 1; J30.2 Other seasonal allergic rhinitis; G47.30 Sleep apnea, unspecified; R01.1 Cardiac murmur, unspecified; E78.00 Pure hypercholesterolemia, unspecified; I10 Essential (primary) hypertension; G14 Postpolio syndrome; G62.9 Polyneuropathy, unspecified; T38.0X5A Adverse effect of glucocorticoids and synthetic analogues, initial encounter; M19.91 Primary osteoarthritis, unspecified site; Z85.118 Personal history of other malignant neoplasm of bronchus and lung; Z85.830 Personal history of malignant neoplasm of bone; Z87.891 Personal history of nicotine dependence; Z92.21 Personal history of antineoplastic chemotherapy; J44.0 Chronic obstructive pulmonary disease with (acute) lower respiratory infection
CPT/HCPCS: 36415; 71045; 71046; 71275; 80053; 82728; 82805; 83540; 83605; 85007; 85025; 85027; 85379; 85610; 85730; 86141; 87040; 87070; 87205; 87804; 94640; 94760

== ENCOUNTER 2019-07-22 23:55 | Inpatient (IN) | payer MEDICARE, MEDICAID ==
[~2019-07-22] VITALS: Ht 180 cm; Wt 81.0 kg
[~2019-07-22 23:55] MED LIST changes: +ACET-93 PO; +AZIT250T12 PO; +MUPI22OI2 TOP; +ZINC28PA TOP
[2019-07-23] VITALS (7 sets, daily range): BP systolic 121–165; BP diastolic 73–93
--- OUTSIDE RECORDS SUMMARY | 2019-07-23 00:01 | XMS REPORT | Clinical Summary ---
Author Author [facility] Organization [facility] Address Unknown Phone Unavailable Care Team Providers Care Crusher And Binder Operator Name Role Phone Efra Valentino MD Unavailable Unavailable Source Comments Some departments are not documenting in the electronic medical record. If you d o not see the information that you expected, contact Release of Information in [facility] [employer] department at [phone] for further assistan ce in locating additional records.[facility] Allergies Comments Active Allergy Reactions Severity Noted [...] Health Maintenance Due Date Last Done Comments DTAP/TDAP VACCINES (1 - 07/17/1971 Tdap) HEPATITIS C SCREENING 07/17/1971 PHYSICAL (COMPREHENSIVE) 07/17/1971 EXAM COLORECTAL CANCER 07/17/2003 SCREENING SHINGLES RECOMBINANT 07/17/2003 VACCINE (1 of 2) ABDOMINAL AORTIC ANEURYSM 2018 SCREENING PNEUMONIA (PPSV23) 2018 VACCINE (1 of 2 - PCV13) INFLUENZA VACCINE 10/30/2019 Results Not on filefrom Last 3 Months
[2019-07-23] MEDS ORDERED: RT-ALBUTEROL SULF 2.5 MG/3 ML PRE-MIX VIAL INH STA ×2 (00:05→00:08)
[2019-07-23] MEDS ORDERED: methylPREDNISolone 125 MG (Solu-MEDROL) VIAL IV STA (00:05)
[2019-07-23] MEDS ORDERED: RT-ALBUTEROL/IPRATROPIUM 3 ML (DUONEB) VIAL INH ONE (00:15)
--- OUTSIDE RECORDS SUMMARY | 2019-07-23 00:16 | XMS REPORT | Continuity of Care Document ---
Author Organization Unknown Address Unknown Phone Unavailable Allergies Active Description Code Type Severity Reaction Onset Reported/Identified Relationship to Patient Clinical Status Yes AMOXILLEN AMOXILLEN Mild N/A 07/17/2008 Yes Penicillins [id number] Drug Aller gy Mild N/A 08/02/2008 Yes aspirin Drug Allergy N/A N/A 12/10/2013 Yes aspirin [id number] Drug Allergy Mild DOES NOT WORK W 10/05/2018 Yes ibuprofen [id number] Drug Allergy Mild N/A 10/05/2018 Medications There [...] CHEMOTHERAP 02/27/1422 STEPHEN PRICE Ot Z79.899 OTHER NURSING HOME (CURRENT) DRUG THERAPY 02/27/1422 STEPHEN PRICE Ot [...] 09/17/2013 MARIAJOSE LASSITER CELESTE Erma Ot V06.1 [id number], COMBINED [ 11/02/2013 VANESSA GUTHRIE MD Ot [...] AMANDEEP Pineda Ot 825.25 08/26/2014 GELLENDER DO, MAANDEEP Pineda Ot E928.9 08/26/2014 GELLENDER DO, AMANDEEP [...] Pineda Ot 789.00 03/11/2015 GELLENDER DO, AMANDEEP iPneda Ot 272.4 03/11/2015 GELLENDER DO, AMANDEEP Pineda [...] Pineda Ot 729.81 03/13/2015 GELLENDER DO, AMANDEEP Pnieda Ot 780.79 03/13/2015 GABRIELLE RIOS, YELITZA Marie [...] DO Ot 825.25 FX METATARSAL-CLOSED 08/10/2015 [facility] LSASITER AMANDEEP Pineda Ot E928.9 ACCIDENT NOS 08/10/2015 [...] ABDOMINAL PAIN, UNSPECIFIED SITE 08/11/2015 GELLENDER DO, AAMNDEEP Pineda Ot 783.21 LOSS OF WEIGHT 08/11/2015 [...] PLACE IN UNSP NON-INSTITUT (PRIVATE 10/24/2015 NOREEN HCÁVEZ APRN Ot Y99 .8 OTHER EXTERNAL CAUSE STATUS 10/24/2015 NOREEN CHÁVEZ APRN Ot Z23 ENCOUNTER FOR IMMUNIZATION 10/24/2015 NOREEN CHÁVEZ APRN Ot Z79.899 OTHER NURSING HOME (CURRENT) DRUG THERAPY 10/25/2015 NOREEN CHÁVEZ APRN Ot F17.210 NICOTINE DEPENDENCE, CIGARETTES, UNCOMPL 10/25/2015 CHÁVEZ, PETER J TORCH HEATER Ot G40.909 EPILEPSY, UNSP, NOT INTRACTABLE, WITHOUT 10/25/2015 NOREEN CHÁVEZ TORCH HEATER Ot M47.892 OTHER SPONDYLOSIS, CERVICAL REGION 10/25/2015 NOREEN CHÁVEZ TORCH HEATER Ot R42 DIZZINESS AND GIDDINESS 10/25/2015 NOREEN CHÁVEZ TORCH HEATER Ot S01.312A LACERATION WITHOUT FOREIGN BODY OF LEFT 10/25/2015 NOREEN CHÁVEZ TORCH HEATER Ot W01.0XXA FALL SAME LEV FROM SLIP/TRIP W/O STRIKE 10/25/2015 NOREEN CHÁVEZ TORCH HEATER Ot Y92.[address] IN UNSP NON-INSTITUT (PRIVATE 10/25/2015 NOREEN CÁHVEZ TORCH HEATER Ot Y99 .8 OTHER EXTERNAL CAUSE STATUS 10/25/2015 NOREEN CHÁVEZ TORCH HEATER Ot Z23 ENCOUNTER FOR IMMUNIZATION 10/25/2015 NOREEN CHÁVEZ APRN Ot Z79.899 OTHER NURSING HOME (CURRENT) DRUG THERAPY 11/01/2015 Ot 272.4 HYPE RLIPIDEMIA NEC/NOS 11/01/2015 Ot 496 [facility] AI RWAY OBSTRUCT NEC 11/01/2015 Ot 780.39 OTH ER CONVULSIONS 11/01/2015 Ot 780.39 OT ER CONVULSIONS 11/01/2015 Ot 272.4 HYPE RLIPIDEMIA NEC/NOS 11/01/2015 Ot 780.39 OTH ER CONVULSIONS 11/01/2015 Ot 496 [facility] AI RWAY OBSTRUCT NEC 11/01/2015 Ot 786.2 COUGH 11/01/2015 Ot 496 [facility] AI RWAY OBSTRUCT NEC 11/01/2015 Ot 786.2 COUGH 11/01/2015 Ot 272.4 HYPE RLIPIDEMIA NEC/NOS 11/01/2015 Ot 780.39 OTH ER CONVULSIONS 11/01/2015 Ot 780.39 OTH ER CONVULSIONS 11/01/2015 Ot 272.4 HYPE RLIPIDEMIA NEC/NOS 11/01/2015 Ot 496 [facility] AI RWAY OBSTRUCT NEC 11/01/2015 Ot 780.39 OTH ER CONVULSIONS 11/20/2015 MARY RIOS, STEFAN Zuniga Ot F17.210 NICOTINE DEPENDENCE, CIGARETTES, UNCOMPL 11/20/2015 STEFAN HERNANDEZ MD Ot G40.909 EPILEPSY, UNSP, NOT INTRACTABLE, WITHOUT 11/20/2015 MARY RIOS, STEFAN Zuniga Ot R27.0 ATAXIA, UNSPECIFIED 11/20/2015 MARY RIOS, STEFAN Zuniga Ot R41.82 ALTERED MENTAL STATUS, UNSPECIFIED 11/20/2015 MARY RIOS, STEFAN Zuniag Ot Z53.29 PROC/TRTMT NOT CRD OUT BEC [...] Ot 786.2 COUGH 02/21/2016 GELLENDER DO, AMANDEEP Pindea Ot 783.21 LOSS OF WEIGHT 02/21/2016 GELLENDER [...] AIRWAY OBSTRUCT NEC 02/28/2016 GELLENDER DO, AMANDEEP Pindea Ot 783.21 LOSS OF WEIGHT 02/28/2016 GELLENDER [...] NOT INTRACTABLE, WITHOUT 04/06/2017 GELLENDER DO, AMANDEEP Pindea Ot R06.02 SHORTNESS OF BREATH 04/06/2017 GELLENDER [...] AMANDEEP Pineda Ot Z91.19 PATIENT'S NONCOMPLIANCE W [facility] MEDICAL TR 04/08/2017 GELLENDER DO, AMANDEEP [...] GELLENDER DOAMANDEEP Ot Z91.19 PATIENT'S NONCOMPLIANCE W [facility] MEDICAL TR 04/30/2017 NOREEN CHÁVEZ APRN [...] ENCOUNTER 04/30/2017 NOREEN CHÁVEZ APRN Ot Z79.52 ADMINISTRATIVE SALES ASSISTANT (CURRENT) USE OF SYSTEMIC STER 04/30/2017 NOREEN [...] EPISTAXIS 04/30/2017 NOREEN CHÁVEZ APRN Ot Z79.52 NURSING HOME (CURRENT) USE OF SYSTEMIC STER 04/30/2017 NOREEN [...] ENCOUNTER 05/02/2017 NOREEN CHÁVEZ APRN Ot Z79.52 NURSING HOME (CURRENT) USE OF SYSTEMIC STER 05/02/2017 NOREEN [...] EPISTAXIS 05/02/2017 NOREEN CHÁVEZ APRN Ot Z79.52 NURSING HOME (CURRENT) USE OF SYSTEMIC STER 05/02/2017 NOREEN [...] NODULE 07/09/2017 STEPHEN PRICE Ot Z79.899 OTHER ADMINISTRATIVE SALES ASSISTANT (CURRENT) DRUG THERAPY 07/09/2017 STEPHEN PRICE Ot [...] NODULE 07/09/2017 STEPHEN PRICE Ot Z79.899 OTHER ADMINISTRATIVE SALES ASSISTANT (CURRENT) DRUG THERAPY 07/09/2017 STEPHEN PRICE Ot [...] Ot M89.9 DISORDER OF BONE, UNSPECIFIED 07/15/2017 DEESTEHPEN PATRICIO N Ot R91.1 SOLITARY PULMONARY NODULE 07/15/2017 STEPHEN PRICE N Ot Z79.899 OTHER NURSING HOME (CURRENT) DRUG THERAPY 07/15/2017 DEESTEPHEN PATRICIO N [...] 07/18/2017 STEPHEN PRICE N Ot Z79.899 OTHER ADMINISTRATIVE SALES ASSISTANT (CURRENT) DRUG THERAPY 07/18/2017 STEPHEN PRICE N [...] 07/24/2017 CÉSAR NEGRETE DO Ot Z79.899 OTHER NURSING HOME (CURRENT) DRUG THERAPY 07/24/2017 CÉSAR NEGRETE DO [...] 07/25/2017 CÉSAR NEGRETE DO Ot Z79.899 OTHER ADMINISTRATIVE SALES ASSISTANT (CURRENT) DRUG THERAPY 07/25/2017 CÉSAR NEGRETE DO [...] NODULE 07/28/2017 STEPHEN PRICE Ot Z79.899 OTHER NURSING HOME (CURRENT) DRUG THERAPY 07/28/2017 STEPHEN PRICE Ot [...] NODULE 07/29/2017 STEPHEN PRICE Ot Z79.899 OTHER NURSING HOME (CURRENT) DRUG THERAPY 07/29/2017 STEPHEN PRICE Ot Z87.891 PERSONAL HISTORY OF NICOTINE DEPENDENCE 08/01/2017 STEPHEN PRICE Ot 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 08/01/2017 STEPHEN PRICE Ot R91.1 SOLITARY PULMONARY NODULE 08/01/2017 STEPHEN PRICE Ot Z87.891 PERSONAL HISTORY OF NICOTINE DEPENDENCE 08/01/[facility] AMANDEEP Pineda Ot C34.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 08/01/2017 [facility] , AMANDEEP Pineda Ot E78.00 PURE HYPERCHOLESTEROLEMIA, UNSPECIFIED 08/01/2017 [facility] , AMANDEEP Pineda Ot G14 POSTPOLIO SYNDROME 08/01/2017 [facility] G40.909 EPILEPSY, UNSP, NOT INTRACTABLE, WITHOUT 08/01/[facility] AM[facility]EP LASSITER Ot G47.30 SLEEP APNEA, UNSPECIFIED 08/01/2017 [facility] AMANDEEP LASSITER Ot I10 ESSENTIAL (PRIMARY) HYPERTENSION 08/01/2017 [facility] AMANDEEP LASSITER Ot J18.9 PNEUMONIA, UNSPECIFIED ORGANISM 08/01/2017 AMANDEEP GENAO DO Ot J44.0 CHRONIC OBSTRUCTIVE PULMON DISEASE W ACU 08/01/2017 [facility] AMANDEEP LASSITER Ot J44.1 CHRONIC OBSTRUCTIVE PULMONARY DISEASE W 08/01/2017 [facility] Ot J96.21 ACUTE AND CHRONIC RESPIRATORY FAILURE WI 08/01/2017 [facility] AMANDEEP LASSITER Ot R09.02 HYPOXEMIA 08/01/2017 [facility] AMANDEEP LASSITER Ot Z87.891 PERSONAL HISTORY OF [...] DISTRESS 08/05/2017 VANESSA GUTHRIE MD Ot Z79.51 NURSING HOME (CURRENT) USE OF INHALED STERO 08/05/2017 VANESSA [...] C34.90 MALIGNANT NEOPLASM OF UNSP PART OF [facility] 08/06/2017 AMANDEEP GENAO DO Ot E78.00 PURE [...] C34.90 MALIGNANT NEOPLASM OF UNSP PART OF [facility] 08/07/2017 AMANDEEP GENAO DO Ot E78.00 PURE [...] DEPENDENCE ON SUPPLEMENTAL OXYGEN 08/29/2017 NINA ANAYA TORCH HEATER Ot M79.604 PAIN IN RIGHT LEG 08/29/2017 HÉCTOR NINA Bustos TORCH HEATER Ot M79.605 PAIN IN LEFT LEG 08/29/2017 IRMA ANAYAINE Juli TORCH HEATER Ot M79.89 OTHER SPECIFIED SOFT TISSUE DISORDERS 08/29/2017 IRMA ANAYAINE E TORCH HEATER Ot R91.8 OTHER NONSPECIFIC ABNORMAL FINDING OF DAVID 08/29/2017 NINA ANAYA TORCH HEATER Ot M79.604 PAIN IN RIGHT LEG 08/29/2017 NINA ANAYA TORCH HEATER Ot M79.605 PAIN IN LEFT LEG 08/29/2017 HÉCTORNINA TATUM TORCH HEATER Ot M79.89 OTHER SPECIFIED SOFT TISSUE DISORDERS 08/29/2017 NINA ANAYA TORCH HEATER Ot R91.8 OTHER NONSPECIFIC ABNORMAL FINDING OF DAVID 09/08/2017 RESENDIZSIVA S 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 Ot C34.12 MALIGNANT NEOPLASM OF UPPER LOBE, LEFT B 09/08/2017 RESENDIZSIVA Rodriguez S 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 Ot C79.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 09/10/2017 RESENDIZ HILBRENDA S 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 Ot C34.12 MALIGNANT NEOPLASM OF UPPER LOBE, LEFT B 09/10/2017 RESENDIZSIVA S 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 Ot C79.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 09/10/2017 NINA ANAYA TORCH HEATER Ot M79.604 PAIN IN RIGHT LEG 09/10/2017 NINA ANAYA TORCH HEATER Ot M79.605 PAIN IN LEFT LEG 09/10/2017 NINA ANAYA TORCH HEATER Ot M79.89 OTHER SPECIFIED SOFT TISSUE DISORDERS 09/10/2017 NINA ANAYA TORCH HEATER Ot R91.8 OTHER NONSPECIFIC ABNORMAL FINDING OF DAVID 09/11/2017 STEPHEN PRICE Ot E78.5 HYPERLIPIDEMIA, UNSPECIFIED 09/11/2017 STEPHEN PRICE Ot G40.909 EPILEPSY, UNSP, NOT INTRACTABLE, WITHOUT 09/11/2017 STEPHEN PRICE N Ot J43.9 EMPHYSEMA, UNSPECIFIED 09/11/2017 STEPHEN PRICE N Ot M89.9 DISORDER OF BONE, UNSPECIFIED 09/11/2017 STEPHEN PRICE Ot R91.1 SOLITARY PULMONARY NODULE 09/11/2017 STEPHEN PRICE Ot Z79.899 OTHER ADMINISTRATIVE SALES ASSISTANT (CURRENT) DRUG THERAPY 09/11/2017 STEPHEN PRICE Ot Z87.891 PERSONAL HISTORY OF NICOTINE DEPENDENCE 09/15/2017 STEPHEN PRICE Ot E78.5 HYPERLIPIDEMIA, UNSPECIFIED 09/15/2017 STEPHEN PRICE Ot G40.909 EPILEPSY, UNSP, NOT INTRACTABLE, WITHOUT 09/15/2017 STEPHEN PRICE Ot J43.9 EMPHYSEMA, UNSPECIFIED 09/15/2017 STEPHEN PRICE Ot M89.9 DISORDER OF BONE, UNSPECIFIED 09/15/2017 STEPHEN PRICE Ot R91.1 SOLITARY PULMONARY NODULE 09/15/2017 STEPHEN PRICE Ot Z79.899 OTHER NURSING HOME (CURRENT) DRUG THERAPY 09/15/2017 STEPHEN PRICE Ot Z87.891 PERSONAL HISTORY OF NICOTINE DEPENDENCE 09/17/2017 SIVA RESENDIZ 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 Ot C34.12 MALIGNANT NEOPLASM OF UPPER LOBE, LEFT B 09/17/2017 SIVA RESENDIZ 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 Ot C79.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 [...] GELLENDER DO, AMANDEEP Pineda Ot Z79.899 OTHER NURSING HOME (CURRENT) DRUG THERAPY 09/24/2017 GELLENDER DO, AMANDEEP [...] GELLENDER DO, AMANDEEP Pineda Ot Z79.899 OTHER NURSING HOME (CURRENT) DRUG THERAPY 09/25/2017 GELLENDER DO, AMANDEEP [...] GELLENDER DO, AMANDEEP Pineda Ot Z79.899 OTHER NURSING HOME (CURRENT) DRUG THERAPY 09/26/2017 GELLENDER DO, AMANDEEP [...] GELLENDER DO, AMANDEEP Pineda Ot Z79.899 OTHER ADMINISTRATIVE SALES ASSISTANT (CURRENT) DRUG THERAPY 09/26/2017 GELLENDER DO, AMANDEEP [...] GELLENDER DO, AMANDEEP Pineda Ot Z79.899 OTHER ADMINISTRATIVE SALES ASSISTANT (CURRENT) DRUG THERAPY 09/26/2017 GELLENDER DO, AMANDEEP [...] GELLENDER DO, AMANDEEP Pineda Ot Z79.899 OTHER ADMINISTRATIVE SALES ASSISTANT (CURRENT) DRUG THERAPY 09/26/2017 GELLENDER DO, AMANDEEP [...] GELLENDER DO, AMANDEEP Pineda Ot Z79.899 OTHER NURSING HOME (CURRENT) DRUG THERAPY 09/26/2017 GELLENDER DO, AMANDEEP [...] GELLENDER DO, AMANDEEP Pineda Ot Z79.899 OTHER NURSING HOME (CURRENT) DRUG THERAPY 09/27/2017 GELLENDER DO, AMANDEEP [...] GELLENDER DO, AMANDEEP Pineda Ot Z79.899 OTHER NURSING HOME (CURRENT) DRUG THERAPY 09/28/2017 GELLENDER DO, AMANDEEP [...] GELLENDER DO, AMANDEEP Pineda Ot Z79.899 OTHER ADMINISTRATIVE SALES ASSISTANT (CURRENT) DRUG THERAPY 09/28/2017 GELLENDER DO, AMANDEEP [...] 10/01/2017 DEE, BOBAN N Ot Z79.899 OTHER NURSING HOME (CURRENT) DRUG THERAPY 10/01/2017 DEE, BOBAN N [...] 10/02/2017 DEE, BOBAN N Ot Z79.899 OTHER ADMINISTRATIVE SALES ASSISTANT (CURRENT) DRUG THERAPY 10/02/2017 DEE, BOBAN N [...] 10/07/2017 DEE, SABASAN N Ot Z79.899 OTHER NURSING HOME (CURRENT) DRUG THERAPY 10/07/2017 DEE STEPHEN N [...] NODULE 10/10/2017 DEESTEPHEN N Ot Z79.899 OTHER ADMINISTRATIVE SALES ASSISTANT (CURRENT) DRUG THERAPY 10/10/2017 DEESTEPHEN N Ot [...] CHEMOTHERAP 10/13/2017 DEESABASAN N Ot Z79.899 OTHER ADMINISTRATIVE SALES ASSISTANT (CURRENT) DRUG THERAPY 10/13/2017 DEESABASAN N Ot [...] SCOT LASSITER JAMIR Ot Z79.89 9 OTHER NURSING HOME (CURRENT) DRUG THERAPY 11/17/2017 SCOT LASSITER JAMIR [...] HYPERTENSION 12/12/2017 KURT MOHR MD Ot Z79.52 NURSING HOME (CURRENT) USE OF SYSTEMIC STER 12/12/2017 KURT MOHR MD Ot Z79.899 OTHER ADMINISTRATIVE SALES ASSISTANT (CURRENT) DRUG THERAPY 12/12/2017 KURT MOHR MD Ot Z87.891 PERSONAL HISTORY OF NICOTINE DEPENDENCE 12/16/2017 KURT MOHR MD Ot C34.90 MALIGNANT NEOPLASM OF [facility] 12/16/2017 KURT MOHR MD Ot H25.12 AGE-RELATED NUCLEAR CATARACT, LEFT EYE 12/16/2017 KURT MOHR MD Ot I10 ESSENTIAL (PRIMARY) HYPERTENSION 12/16/2017 KURT MOHR MD Ot Z79.52 NURSING HOME (CURRENT) USE OF SYSTEMIC STER 12/16/2017 KURT MOHR MD Ot Z79.899 OTHER ADMINISTRATIVE SALES ASSISTANT (CURRENT) DRUG THERAPY 12/16/2017 ONUR RIOS, KURT [...] 12/22/2017 STEPHEN PRICE N Ot Z79.899 OTHER NURSING HOME (CURRENT) DRUG THERAPY 12/22/2017 STEPHEN PRICE N [...] 12/24/2017 KURT MOHR MD Ot Z79.899 OTHER NURSING HOME (CURRENT) DRUG THERAPY 12/25/2017 KURT MOHR MD [...] ONUR RIOS, KURT Newton Ot Z79.899 OTHER ADMINISTRATIVE SALES ASSISTANT (CURRENT) DRUG THERAPY 12/25/2017 KURT MOHR MD [...] J45.909 UNSPECIFIED ASTHMA, UNCOMPLICATED 12/25/2017 ONUR RIOS, UKRT Newton Ot Z79.899 OTHER ADMINISTRATIVE SALES ASSISTANT (CURRENT) DRUG THERAPY 12/30/2017 KURT MOHR MD [...] ONUR RIOS, KURT L Ot Z79.899 OTHER ADMINISTRATIVE SALES ASSISTANT (CURRENT) DRUG THERAPY 12/31/2017 DEESTEPHEN PATRICIO N [...] 12/31/2017 DEESTEPHEN PATRICIO N Ot Z79.899 OTHER ADMINISTRATIVE SALES ASSISTANT (CURRENT) DRUG THERAPY 12/31/2017 DEE BOBAN N [...] 01/08/2018 DEE, BOBAN N Ot Z79.899 OTHER NURSING HOME (CURRENT) DRUG THERAPY 01/08/2018 DEE BOBAN N Ot Z87.891 PERSONAL HISTORY OF NICOTINE DEPENDENCE 01/09/2018 SIVA RESENDIZ 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 Ot C34.12 MALIGNANT NEOPLASM OF UPPER LOBE, LEFT B 01/22/2018 SIVA RESENDIZ 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 Ot C34.12 MALIGNANT NEOPLASM OF UPPER LOBE, [...] SLEEP APNEA, UNSPECIFIED 01/28/2018 GELLENDER DO, AMANDEEP Pinead Ot I10 ESSENTIAL (PRIMARY) HYPERTENSION 01/28/2018 GELLENDER DO, AMANDEEP Pineda Ot J18.1 LOBAR PNEUMONIA, UNSPECIFIED ORGANISM 01/28/2018 GELLENDER DO, AMANDEEP Pineda Ot J30.2 OTHER SEASONAL ALLERGIC RHINITIS 01/28/2018 GELLENDER , AMNADEEP Pineda Ot J44.9 CHRONIC OBSTRUCTIVE PULMONARY DISEASE, [...] UNSPECIFIED 01/29/2018 STEPHEN PRICE Ot Z79.899 OTHER ADMINISTRATIVE SALES ASSISTANT (CURRENT) DRUG THERAPY 01/29/2018 STEPHEN PRICE Ot [...] UNSPECIFIED 02/17/2018 STEPHEN PRICE Ot Z79.899 OTHER NURSING HOME (CURRENT) DRUG THERAPY 02/17/2018 STEPHEN PRICE Ot [...] GELLENDER DO, AMANDEEP Pineda Ot Z79.899 OTHER ADMINISTRATIVE SALES ASSISTANT (CURRENT) DRUG THERAPY 03/18/2018 GELLENDER DO, AMANDEEP [...] 03/19/2018 DEESTEPHEN PATRICIO Flavio Ot Z79.899 OTHER NURSING HOME (CURRENT) DRUG THERAPY 03/19/2018 DEESTEPHEN PATRICIO Flavio [...] GELLENDER DO, AMANDEEP Pineda Ot Z79.899 OTHER ADMINISTRATIVE SALES ASSISTANT (CURRENT) DRUG THERAPY 03/26/2018 GELLENDER DO, AMANDEEP [...] I10 ESSENTIAL (PRIMARY) HYPERTENSION 03/26/2018 GELLENDER DO, AMNADEEP Pineda Ot J30.2 OTHER SEASONAL ALLERGIC RHINITIS [...] GELLENDER DO, AMANDEEP Pineda Ot Z79.899 OTHER ADMINISTRATIVE SALES ASSISTANT (CURRENT) DRUG THERAPY 03/26/2018 GELLENDER DO, AMANDEEP [...] CHEMOTHERAP 03/31/2018 STEPHEN PRICE Ot Z79.899 OTHER NURSING HOME (CURRENT) DRUG THERAPY 03/31/2018 STEPHEN PRICE Ot [...] 04/01/2018 DEE, BOBAN N Ot Z79.899 OTHER NURSING HOME (CURRENT) DRUG THERAPY 04/01/2018 DEE BOBAN N [...] 04/06/2018 DEE BOBAN N Ot Z79.899 OTHER NURSING HOME (CURRENT) DRUG THERAPY 04/06/2018 DEE BOBAN N [...] 04/06/2018 DEE, BOBAN N Ot Z79.899 OTHER ADMINISTRATIVE SALES ASSISTANT (CURRENT) DRUG THERAPY 04/06/2018 STEPHEN PRICE Ot [...] UNSPECIFIED 04/06/2018 STEPHEN PRICE Ot Z79.899 OTHER NURSING HOME (CURRENT) DRUG THERAPY 04/06/2018 STEPHEN PRICE Ot [...] DO, AMANDEEP Pineda Ot J98.11 ATELECTASIS 04/21/2018 [facility], AMANDEEP Pineda Ot M19.91 PRIMARY OSTEOARTHRITIS, UNSPECIFIED SITE 04/21/2018 [facility], AMANDEEP Pineda Ot N17.9 ACUTE KIDNEY FAILURE, UNSPECIFIED 04/21/2018 [facility] AMANDEEP Pineda Ot R06.03 ACUTE RESPIRATORY DISTRESS 04/21/2018 [facility], AMANDEEP Pineda Ot R09.02 HYPOXEMIA 04/21/2018 [facility], AMANDEEP Pineda Ot R64 CACHEXIA 04/21/2018 [facility], AMANDEEP Pineda Ot S12.9XXD FRACTURE OF NECK, UNSPECIFIED, SUBSEQUEN 04/21/2018 [facility], AMANDEEP Pineda Ot Z87.891 PERSONAL HISTORY OF NICOTINE DEPENDENCE 04/21/2018 [facility], AMANDEEP Pineda Ot Z99.81 DEPENDENCE ON SUPPLEMENTAL OXYGEN 04/24/2018 [facility], AMANDEEP Pineda Ot 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 04/24/2018 [facility], AMANDEEP Pineda Ot C34.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 04/24/2018 [facility], AMANDEEP Pineda Ot C79.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 04/24/2018 [facility], AMANDEEP Pineda Ot E78.00 PURE HYPERCHOLESTEROLEMIA, UNSPECIFIED 04/24/2018 [facility], AMANDEEP Pineda Ot E86.0 DEHYDRATION 04/24/2018 [facility], AMANDEEP Pineda Ot E87.1 HYPO-OSMOLALITY AND HYPONATREMIA 04/24/2018 [facility], AMANDEEP Pineda Ot E87.8 OTH DISORDERS OF ELECTROLYTE AND FLUID B 04/24/2018 [facility], AMANDEEP Pineda Ot G14 POSTPOLIO SYNDROME 04/24/2018 [facility], AMANDEEP Pineda Ot G40.919 EPILEPSY, UNSP, INTRACTABLE, WITHOUT STA 04/24/2018 [facility] AMANDEEP Pineda Ot G47.30 SLEEP APNEA, UNSPECIFIED 04/24/2018 [facility], AMANDEEP Pineda Ot I10 ESSENTIAL (PRIMARY) HYPERTENSION 04/24/2018 [facility], AMANDEEP Pineda Ot I95.9 HYPOTENSION, UNSPECIFIED 04/24/2018 [facility] AMANDEEP Pineda Ot J18.1 LOBAR PNEUMONIA, UNSPECIFIED ORGANISM 04/24/2018 [facility], AMANDEEP Pineda Ot J30.2 OTHER SEASONAL ALLERGIC [...] UNSPECIFIED 04/27/2018 STEPHEN PRICE Ot Z79.899 OTHER NURSING HOME (CURRENT) DRUG THERAPY 04/27/2018 STEPHEN PRICE Ot Z87.891 PERSONAL HISTORY OF NICOTINE DEPENDENCE 05/06/2018 SIVA RESENDIZ 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 Ot C34.12 MALIGNANT NEOPLASM OF UPPER LOBE, LEFT B 05/06/2018 SIVA RESENDIZ 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 Ot C79.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 05/07/2018 STEPHEN PRICE Ot C34.12 MALIGNANT NEOPLASM OF UPPER LOBE, LEFT B 05/07/2018 STEPHEN PRICE Ot C79.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 05/07/2018 STEPHEN PRICE Ot E78.5 HYPERLIPIDEMIA, UNSPECIFIED 05/07/2018 STEPHEN PRICE Ot G40.909 EPILEPSY, UNSP, NOT INTRACTABLE, WITHOUT 05/07/2018 DEESTEPHEN PATRICIO Flavio Ot J43.9 EMPHYSEMA, UNSPECIFIED 05/07/2018 STEPHEN PRICE Flavio Ot Z79.899 OTHER ADMINISTRATIVE SALES ASSISTANT (CURRENT) DRUG THERAPY 05/07/2018 STEPHEN PRICE Flavio [...] 05/11/2018 DEE STEPHEN Flavio Ot Z79.899 OTHER NURSING HOME (CURRENT) DRUG THERAPY 05/11/2018 STEPHEN PRICE Flavio [...] CHEMOTHERAP 05/25/2018 STEPHEN PRICE Ot Z79.899 OTHER ADMINISTRATIVE SALES ASSISTANT (CURRENT) DRUG THERAPY 05/25/2018 STEPHEN PRICE Ot Z87.891 PERSONAL HISTORY OF NICOTINE DEPENDENCE 05/25/2018 SIVA RESENDIZ 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 Ot C34.12 MALIGNANT NEOPLASM OF UPPER LOBE, LEFT B 05/25/2018 SIVA RESENDIZ 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 Ot C79.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 [...] Pineda Ot 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 06/13/2018 GELLENDER DO, AMANDEEP Pineda Ot [...] Z87.891 PERSONAL HISTORY OF NICOTINE DEPENDENCE 06/13/2018 [facility] AM[facility]EP Pineda Ot Z99.81 DEPENDENCE ON SUPPLEMENTAL OXYGEN 06/22/2018 [facility] AM[facility]EP Pineda Ot R56.9 UNSPECIFIED CONVULSIONS 06/22/2018 [facility], AMANDEEP Pineda Ot F17.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, UNSPECIFIED, UNCOMP 06/22/2018 GELLENDER DO, AMANDEEP Pineda Ot J44.9 CHRONIC OBSTRUCTIVE PULMONARY DISEASE, U 06/22/2018 GELLENDER DO, AMANEDEP Pineda Ot R63.4 ABNORMAL WEIGHT LOSS 06/22/2018 [facility] AM[facility]EP Pineda Ot J44.9 CHRONIC OBSTRUCTIVE PULMONARY DISEASE, U 06/22/2018 GELLENDER DO, AMANDEEP Pineda Ot R63.4 ABNORMAL WEIGHT LOSS 06/22/2018 GELLENDER DO, AMANDEEP Pineda Ot R63.4 ABNORMAL WEIGHT LOSS 06/22/2018 [facility], AMANDEEP Pineda Ot G40.909 EPILEPSY, [...] ABNORMAL FINDING OF DAVID 06/22/2018 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 Ot C34.12 MALIGNANT NEOPLASM OF UPPER LOBE, LEFT B 06/22/2018 [employer] 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 Ot C79.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 06/22/2018 AMANDEEP GENAO DO Ot B35.1 TINEA UNGUIUM 06/22/2018 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 Ot C34.12 MALIGNANT NEOPLASM OF UPPER LOBE, LEFT B 06/22/2018 [employer] 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 Ot C79.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 06/22/2018 [employer] 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 Ot C34.12 MALIGNANT NEOPLASM OF UPPER LOBE, LEFT B 06/22/2018 [facility] RESENDIZP Ot C34.12 MALIGNANT NEOPLASM OF UPPER LOBE, LEFT B 06/22/2018 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 Ot C79.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 06/22/2018 AMANDEEP GENAO DO Ot M43.12 SPONDYLOLISTHESIS, CERVICAL REGION 06/22/2018 [facility] Ot M47.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 06/22/2018 [facility]EP LASSITER Ot S19.9XXA UNSPECIFIED [...] CHEMOTHERAP 06/22/2018 STEPHEN PRICE Ot Z79.899 OTHER ADMINISTRATIVE SALES ASSISTANT (CURRENT) DRUG THERAPY 06/22/2018 STEPHEN PRICE Ot Z87.891 PERSONAL HISTORY OF NICOTINE DEPENDENCE 06/22/2018 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 Ot C34.12 MALIGNANT NEOPLASM OF UPPER LOBE, [...] Pineda Ot G47.30 SLEEP APNEA, UNSPECIFIED 06/25/2018 [facility] AM[facility]DEEP Pineda Ot G62.9 POLYNEUROPATHY, UNSPECIFIED 06/25/2018 [facility], AMANDEEP Pineda Ot H53.9 UNSPECIFIED VISUAL DISTURBANCE 06/25/2018 [facility] DO, AMANDEEP Pineda Ot I10 ESSENTIAL (PRIMARY) HYPERTENSION 06/25/2018 [facility] AM[facility]EP Pineda Ot I38 ENDOCARDITIS, VALVE UNSPECIFIED 06/25/2018 GELLENDER DO, AMANDEEP Pineda Ot J18.1 LOBAR PNEUMONIA, UNSPECIFIED ORGANISM 06/25/2018 [facility], AMANDEEP Pineda Ot J44.9 CHRONIC OBSTRUCTIVE PULMONARY DISEASE, U 06/25/2018 [facility], AMANDEEP Pineda Ot M19.91 PRIMARY OSTEOARTHRITIS, UNSPECIFIED SITE 06/25/2018 [facility] DO, AMANDEEP Pinead Ot R01.1 CARDIAC MURMUR, UNSPECIFIED 06/25/2018 [facility], AMANDEEP Pineda Ot R41.0 DISORIENTATION, UNSPECIFIED 06/25/2018 GELDER DO, AMANDEEP Pineda Ot R42 DIZZINESS AND GIDDINESS 06/25/2018 [facility], AMANDEEP Pineda Ot R47.81 SLURRED SPEECH 06/25/2018 [facility], AMANDEEP Pineda Ot R79.89 OTHER SPECIFIED ABNORMAL FINDINGS OF BLO 06/25/2018 [facility], AMANDEEP Pineda Ot T42.0X5A ADVERSE EFFECT OF HYDANTOIN DERIVATIVES, 06/25/2018 [facility] AM[facility] Ot T42.1X5A ADVERSE EFFECT OF IMINOSTILBENES, INITIA 06/25/2018 [facility] , AMANDEEP Pineda Ot Z87.891 PERSONAL HISTORY OF NICOTINE DEPENDENCE 06/25/2018 [facility] , AMANDEEP Pineda Ot Z92.21 PERSONAL HISTORY OF ANTINEOPLASTIC CHEMO 06/25/2018 [facility], AMANDEEP Pineda Ot Z99.81 DEPENDENCE ON SUPPLEMENTAL OXYGEN 06/26/2018 [facility], AMANDEEP Pineda Ot C34.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 06/26/2018 [facility], AMANDEEP Pineda Ot C79.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 06/26/2018 [facility] DO, AMANDEEP Pineda Ot D64.9 ANEMIA, UNSPECIFIED [...] W/O MYELOPATHY OR RADICULOPA 07/10/2018 SIVA RESENDIZ 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 Ot S12.190A OTH DISP FX OF SECOND CERVICAL VERTEBRA, 07/10/2018 SIVA RESENDIZ 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 Ot W19.XXXA UNSPECIFIED FALL, INITIAL ENCOUNTER 07/10/2018 SIVA RESENDIZ 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 Ot Z95.828 PRESENCE OF OTHER VASCULAR IMPLANTS [...] UPPER LOBE, LEFT B 07/14/2018 SIVA RESENDIZ 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 Ot C79.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 [...] CHEMOTHERAP 07/14/2018 STEPHEN PRICE Ot Z79.899 OTHER ADMINISTRATIVE SALES ASSISTANT (CURRENT) DRUG THERAPY 07/14/2018 STEPHEN PRICE Ot [...] UNSPECIFIED FALL, INITIAL ENCOUNTER 07/14/2018 [facility] LASSITER AMNADEEP Miriam Ot R05 COUGH 07/14/2018 JOSEAMANDEEP SCHMIDT [...] C79.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 07/21/2018 [facility] AMANDEEP LASSITER Ot B35.1 TINEA [...] SECONDARY MALIGNANT NEOPLASM OF BONE 07/21/2018 [facility] AMANDEEP LASSITER Ot M43.12 SPONDYLOLISTHESIS, [...] CHEMOTHERAP 07/21/2018 STEPHEN PRICE Ot Z79.899 OTHER ADMINISTRATIVE SALES ASSISTANT (CURRENT) DRUG THERAPY 07/21/2018 STEPHEN PRICE Ot [...] INJURY OF RIGHT HIP, INITIAL 07/21/2018 [facility] LSASITER AMANDEEP Pineda Ot W19.XXXA UNSPECIFIED FALL, INITIAL [...] OTHER SPECIFIED SPECIAL EX 07/24/2018 GE[facility]END[facility] DO, AMADNEEP Pineda Ot B91 SEQUELAE OF POLIOMYELITIS 07/24/2018 [...] G81.94 HEMIPLEGIA, UNSPECIFIED AFFECTING LEFT N 07/24/2018 [facility] AMANDEEP Pineda Ot I10 ESSENTIAL (PRIMARY) HYPERTENSION 07/24/2018 GELLENDER DO, AMANDEEP Pineda Ot J18.1 LOBAR PNEUMONIA, UNSPECIFIED ORGANISM 07/24/2018 GELLENDER DO, AMANDEEP Pineda Ot J30.2 OTHER SEASONAL ALLERGIC RHINITIS 07/24/2018 [facility] AMANDEEP Pineda Ot J44.0 CHRONIC [...] 07/24/2018 [facility] LASSITER, AMANDEEP Pineda Ot Z79.52 ADMINISTRATIVE SALES ASSISTANT (CURRENT) USE OF SYSTEMIC STER 07/24/2018 [facility] LASSITER, AMANDEEP Pineda Ot Z79.899 OTHER NURSING HOME (CURRENT) DRUG THERAPY 07/24/2018 [facility] LASSITER, AMANDEEP Pineda Ot Z87.891 PERSONAL HISTORY OF NICOTINE DEPENDENCE 07/24/2018 [facility] LASSITER, AMANDEEP Pineda Ot Z91.19 PATIENT'S NONCOMPLIANCE W [facility] MEDICAL TR 07/24/2018 [facility] LASSITER, AMANDEEP [...] 07/26/2018 STEPHEN PRICE N Ot Z79.899 OTHER NURSING HOME (CURRENT) DRUG THERAPY 07/26/2018 STEPHEN PRICE N [...] 07/27/2018 STEPHEN PRICE N Ot Z79.899 OTHER NURSING HOME (CURRENT) DRUG THERAPY 07/27/2018 STEPHEN PRICE Ot [...] 07/27/2018 STEPHEN PRICE Flavio Ot Z79.899 OTHER NURSING HOME (CURRENT) DRUG THERAPY 07/27/2018 STEPHEN PRICE N [...] R91.1 SOLITARY PULMONARY NODULE 08/10/2018 SIVA RESENDIZ 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 Ot C34.12 MALIGNANT NEOPLASM OF UPPER LOBE, LEFT B 08/10/2018 SIVA RESENDIZ 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 Ot C79.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 08/10/2018 SIVA RESENDIZ 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 Ot C34.12 MALIGNANT NEOPLASM OF UPPER LOBE, LEFT B 08/10/2018 SIVA RESENDIZ 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 Ot C79.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 [...] Pineda Ot 729.81 SWELLING OF LIMB 08/10/2018 [facility] AMANDEEP Pineda Ot 780.79 OTH MALAISE FATIGUE 08/10/2018 GABRIELLE RIOS, YELITZA Marie Ot 780.3 9 OTHER CONVULSIONS 08/10/2018 [facility] AMANDEEP Pineda Ot 825.25 FX METATARSAL-CLOSED 08/10/2018 [facility] AMANDEEP Pineda Ot E928.9 ACCIDENT NOS 08/10/2018 [facility] , AMANDEEP Pineda Ot 780.39 OTHER CONVULSIONS 08/10/2018 GELLENDER DO, AMANDEEP Pineda Ot 721.0 CERVICAL SPONDYLOSIS 08/10/2018 [facility] AMANDEEP Pineda Ot 496 CHR AIRWAY OBSTRUCT NEC 08/10/2018 [facility], AMANDEEP Pineda Ot 780.39 OTHER CONVULSIONS 08/10/2018 [facility] AMANDEEP Pineda Ot E78.5 HYPERLIPIDEMIA, UNSPECIFIED 08/10/2018 [facility] AMANDEEP Pineda Ot J44.9 CHRONIC OBSTRUCTIVE PULMONARY DISEASE, U 08/10/2018 GELLENDER , AMANDEEP Pineda Ot M79.672 PAIN IN LEFT FOOT 08/10/2018 [facility], AMANDEEP Pineda Ot R56.9 UNSPECIFIED CONVULSIONS 08/10/2018 [facility] AMANDEEP Pineda Ot Z87.81 PERSONAL HISTORY OF (HEALED) TRAUMATIC F 08/10/2018 [facility] , AMANDEEP Pineda Ot E78.5 HYPERLIPIDEMIA, UNSPECIFIED 08/10/2018 GELLENDER DO, AMANDEEP Pineda Ot R56.9 UNSPECIFIED CONVULSIONS 08/10/2018 [facility], AMANDEEP Pineda Ot J44.9 CHRONIC OBSTRUCTIVE PULMONARY DISEASE, U 08/10/2018 GELLENDER DO, AMANDEEP Pineda Ot R63.4 ABNORMAL WEIGHT LOSS 08/10/2018 GELLENDER DO, AMANDEEP Pineda Ot R63.4 ABNORMAL WEIGHT LOSS 08/10/2018 GELLENDER DO, AMANDEEP Pineda Ot G40.909 EPILEPSY, UNSP, NOT INTRACTABLE, WITHOUT 08/10/2018 GELLENDER DO, AMANDEEP Pineda Ot J34.89 OTHER SPECIFIED DISORDERS OF NOSE AND NA 08/10/2018 [facility], AMANDEEP Pineda Ot S99.912A UNSPECIFIED INJURY [...] DISEASE, U 08/12/2018 NESTOR AVILEZ Ot Z79.51 ADMINISTRATIVE SALES ASSISTANT (CURRENT) USE OF INHALED STERO 08/12/2018 NESTOR [...] DISEASE, U 08/14/2018 NESTOR AVILEZ Ot Z79.51 NURSING HOME (CURRENT) USE OF INHALED STERO 08/14/2018 NESTOR [...] CHEMOTHERAP 08/19/2018 STEPHEN PRICE Ot Z79.899 OTHER NURSING HOME (CURRENT) DRUG THERAPY 08/19/2018 STEPHEN PRICE Ot [...] HERNANDEZ MD, Ot Y92.[address] IN [facility] NON-INSTITUT (PRIVATE 09/04/2018 STEFAN HERNANDEZ MD, Ot Z23 ENCOUNTER FOR IMMUNIZATION 09/04/2018 STEFAN HERNANDEZ MD, Ot Z79.51 ADMINISTRATIVE SALES ASSISTANT (CURRENT) USE OF INHALED STERO 09/04/2018 STEFAN [...] Ot Z99.81 DEPENDENCE ON SUPPLEMENTAL OXYGEN 09/07/2018 [facility], AMANDEEP Pineda Ot C79.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 09/07/2018 [facility] Ot E78.00 PURE HYPERCHOLESTEROLEMIA, UNSPECIFIED 09/07/2018 [facility] Ot E87.1 HYPO-OSMOLALITY AND HYPONATREMIA 09/07/2018 [facility] Ot G14 POSTPOLIO SYNDROME 09/07/2018 [facility] Ot G40.909 EPILEPSY, UNSP, NOT INTRACTABLE, WITHOUT 09/07/2018 [facility]EP Ot G47.30 SLEEP APNEA, UNSPECIFIED 09/07/2018 [facility] Ot G62.9 POLYNEUROPATHY, UNSPECIFIED 09/07/2018 [facility] Ot I10 ESSENTIAL (PRIMARY) HYPERTENSION 09/07/2018 [facility] Ot J44.1 CHRONIC OBSTRUCTIVE PULMONARY DISEASE W 09/07/2018 [facility] Ot M19.91 PRIMARY OSTEOARTHRITIS, UNSPECIFIED SITE 09/07/2018 [facility] AMANDEEP LASSITER Ot R01.1 CARDIAC MURMUR, UNSPECIFIED 09/07/2018 [facility] Ot R09.02 HYPOXEMIA 09/07/2018 [facility] AMANDEEP LASSITER Ot R26.2 DIFFICULTY IN WALKING, NOT ELSEWHERE CLA 09/07/2018 [facility] SCHM[facility]T DO Ot R29.6 REPEATED FALLS 09/07/2018 [facility] Ot R41.82 ALTERED MENTAL STATUS, UNSPECIFIED 09/07/2018 [facility], AMANDEEP Pineda Ot R42 DIZZINESS AND GIDDINESS 09/07/2018 [facility], AMANDEEP Pineda Ot R47.81 SLURRED SPEECH 09/07/2018 [facility], AMANDEEP Pineda Ot R53.1 WEAKNESS 09/07/2018 [facility], AMANDEEP Pineda Ot S09.90XA UNSPECIFIED INJURY OF HEAD, INITIAL ENCO 09/07/2018 [facility] AMANDEEP Pineda Ot S90.812A ABRASION, LEFT FOOT, INITIAL ENCOUNTER 09/07/2018 [facility], AMANDEEP Pineda Ot W01.190A FALL SAME LEV FROM SLIP/TRIP W STRIKE AG 09/07/2018 [facility] AMANDEEP Pineda Ot Y92.009 [facility] PL[facility] IN [facility] NON-INSTITUT (PRIVATE 09/07/2018 [facility] , AMANDEEP Pineda Ot Z85.118 PERSONAL HISTORY OF MALIGNANT NEOPLASM O 09/07/2018 [facility] Ot Z87.01 PERSONAL HISTORY OF PNEUMONIA (RECURRENT 09/07/2018 [facility], AMANDEEP Miriam Ot Z87.891 PERSONAL HISTORY OF NICOTINE DEPENDENCE 09/07/2018 [facility] Miriam Ot Z92.21 PERSONAL HISTORY OF ANTINEOPLASTIC CHEMO 09/07/2018 [facility], AMANDEEP Miriam Ot Z99.81 DEPENDENCE ON SUPPLEMENTAL [...] HERNANDEZ MD, Ot Y92.[address] IN [facility] NON-INSTITUT (PRIVATE 09/08/2018 STEFAN HERNANDEZ MD, Ot Z23 ENCOUNTER FOR IMMUNIZATION 09/08/2018 STEFAN HERNANDEZ MD, Ot Z79.51 NURSING HOME (CURRENT) USE OF INHALED STERO 09/08/2018 STEFAN [...] CHEMOTHERAP 09/14/2018 STEPHEN PRICE Ot Z79.899 OTHER ADMINISTRATIVE SALES ASSISTANT (CURRENT) DRUG THERAPY 09/14/2018 DEESTEPHEN PATRICIO Flavio Ot Z87.891 PERSONAL HISTORY OF NICOTINE DEPENDENCE 09/15/2018 NINA ANAYA TORCH HEATER Ot C34.12 MALIGNANT NEOPLASM OF UPPER LOBE, LEFT B 09/15/2018 NINA ANAYA TORCH HEATER Ot F17.201 NICOTINE DEPENDENCE, UNSPECIFIED, IN REM 09/15/2018 NINA ANAYA TORCH HEATER Ot 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 09/15/2018 IRMA ANAYAINE Juli TORCH HEATER Ot I70.0 ATHEROSCLEROSIS OF AORTA 09/15/2018 NINA ANAYA TORCH HEATER Ot J18.9 PNEUMONIA, UNSPECIFIED ORGANISM 09/15/2018 IRMA ANAYAINE E TORCH HEATER Ot J43.9 EMPHYSEMA, UNSPECIFIED 09/15/2018 IRMA ANAYAINE E TORCH HEATER Ot J96.20 ACUTE AND CHR RESP FAILURE, UNSP W HYPOX 09/15/2018 IRMA ANAYAINE Juli TORCH HEATER Ot J98.4 OTHER DISORDERS OF LUNG 09/15/2018 IRMA ANAYAINE Juli TORCH HEATER Ot R91.8 OTHER NONSPECIFIC ABNORMAL FINDING OF DAVID 09/20/2018 NINA ANAYA TORCH HEATER Ot C34.12 MALIGNANT NEOPLASM OF UPPER LOBE, LEFT B 09/20/2018 NINA ANAYA TORCH HEATER Ot F17.201 NICOTINE DEPENDENCE, UNSPECIFIED, IN REM 09/20/2018 IRMA ANAYAINE Juli TORCH HEATER Ot 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 09/20/2018 NINA ANAYA TORCH HEATER Ot I70.0 ATHEROSCLEROSIS OF AORTA 09/20/2018 NINA ANAYA TORCH HEATER Ot J18.9 PNEUMONIA, UNSPECIFIED ORGANISM 09/20/2018 IRMA ANAYAINE Juli TORCH HEATER Ot J43.9 EMPHYSEMA, UNSPECIFIED 09/20/2018 IRMA ANAYAINE E TORCH HEATER Ot J96.20 ACUTE AND CHR RESP FAILURE, UNSP W HYPOX 09/20/2018 IRMA ANAYAINE Juli TORCH HEATER Ot J98.4 OTHER DISORDERS OF LUNG 09/20/2018 IRMA ANAYAINE Juli TORCH HEATER Ot R91.8 OTHER NONSPECIFIC ABNORMAL FINDING OF [...] 09/24/2018 STEPHEN PRICE Flavio Ot Z79.899 OTHER ADMINISTRATIVE SALES ASSISTANT (CURRENT) DRUG THERAPY 09/24/2018 STEPHEN PRICE Flavio [...] BREATH 10/05/2018 STEFAN HERNANDEZ MD, Ot Z79.51 NURSING HOME (CURRENT) USE OF INHALED STERO 10/05/2018 STEFAN [...] 10/05/2018 DEE, BOBAN N Ot Z79.899 OTHER NURSING HOME (CURRENT) DRUG THERAPY 10/05/2018 DEE, BOBAN N [...] 10/08/2018 DEE, BOBAN N Ot Z79.899 OTHER NURSING HOME (CURRENT) DRUG THERAPY 10/08/2018 DEE, BOBAN N [...] BREATH 10/10/2018 STEFAN HERNANDEZ MD, Ot Z79.51 NURSING HOME (CURRENT) USE OF INHALED STERO 10/10/2018 STEFAN [...] BREATH 10/12/2018 STEFAN HERNANDEZ MD Ot Z79.51 ADMINISTRATIVE SALES ASSISTANT (CURRENT) USE OF INHALED STERO 10/12/2018 STEFAN [...] NEOPLASM OF UPPER LOBE, LEFT B 10/12/2018 INNA ANAYA APRN Ot F17.201 NICOTINE DEPENDENCE, UNSPECIFIED, IN REM 10/12/2018 NINA ANAYA APRN Ot 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 10/12/2018 NINA ANAYA APRN Ot I70.0 [...] ABNORMAL FINDING OF DAVID 10/27/2018 NINA ANAYA TORCH HEATER Ot C34.12 MALIGNANT NEOPLASM OF UPPER LOBE, LEFT B 10/27/2018 NINA ANAYA TORCH HEATER Ot F17.201 NICOTINE DEPENDENCE, UNSPECIFIED, IN REM 10/27/2018 NINA ANAYA TORCH HEATER Ot 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 10/27/2018 NINA ANAYA TORCH HEATER Ot I70.0 ATHEROSCLEROSIS OF AORTA 10/27/2018 NINA ANAYA TORCH HEATER Ot J18.9 PNEUMONIA, UNSPECIFIED ORGANISM 10/27/2018 NINA ANAYA TORCH HEATER Ot J43.9 EMPHYSEMA, UNSPECIFIED 10/27/2018 NINA ANAYA TORCH HEATER Ot J96.20 ACUTE AND CHR RESP FAILURE, UNSP W HYPOX 10/27/2018 NINA ANAYA TORCH HEATER Ot J98.4 OTHER DISORDERS OF LUNG 10/27/2018 NINA ANAYA TORCH HEATER Ot R91.8 OTHER NONSPECIFIC ABNORMAL FINDING OF [...] CHEMOTHERAP 11/03/2018 STEPHEN PRICE Ot Z79.899 OTHER NURSING HOME (CURRENT) DRUG THERAPY 11/03/2018 STEPHEN PRICE Ot [...] 11/10/2018 KURT MOHR MD Ot Z79.899 OTHER ADMINISTRATIVE SALES ASSISTANT (CURRENT) DRUG THERAPY 11/17/2018 STEPHEN PRICE Ot C34.12 MALIGNANT NEOPLASM OF UPPER LOBE, LEFT B 11/17/2018 STEPHEN PRICE Ot C79.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 11/17/2018 STEPHEN PRICE Ot E78.5 HYPERLIPIDEMIA, UNSPECIFIED 11/17/2018 STEPHEN PRICE Ot G40.909 EPILEPSY, UNSP, NOT INTRACTABLE, WITHOUT 11/17/2018 STEPHEN PRCIE Ot J43.9 EMPHYSEMA, UNSPECIFIED 11/17/2018 STEPHEN PRICE Ot Z51.11 ENCOUNTER FOR ANTINEOPLASTIC CHEMOTHERAP 11/17/2018 STEPHEN PRICE Ot Z79.899 OTHER NURSING HOME (CURRENT) DRUG THERAPY 11/17/2018 STEPHEN PRICE Ot Z87.891 PERSONAL HISTORY OF NICOTINE DEPENDENCE 11/17/2018 GELLENDER DO, AMANDEEP Pineda Ot R56.9 UNSPECIFIED CONVULSIONS 11/17/2018 GELLENDER DO, AMANDEEP Pineda Ot F17.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, UNSPECIFIED, UNCOMP 11/17/2018 GELLENDER DO, AMANDEEP Pineda Ot J44.9 CHRONIC OBSTRUCTIVE PULMONARY DISEASE, U 11/17/2018 GELLENDER DO, AMANDEEP Pineda Ot R63.4 ABNORMAL WEIGHT LOSS 11/17/2018 GELLENDER DO, AMANDEEP Pindea Ot J44.9 CHRONIC OBSTRUCTIVE PULMONARY DISEASE, U [...] Ot J98.11 ATELECTASIS 11/17/2018 RESENDIZSIVA Rodriguez Jennifer 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 Ot M43.12 SPONDYLOLISTHESIS, CERVICAL REGION 11/17/2018 SIVA RESENDIZ 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 Ot M47.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 11/17/2018 SIVA RESENDIZ 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 Ot S12.190A OTH DISP FX OF SECOND CERVICAL VERTEBRA, 11/17/2018 SIVA RESENDIZ 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 Ot W19.XXXA UNSPECIFIED FALL, INITIAL ENCOUNTER 11/17/2018 RESENDIZSIVA Rodriguez Jennifer 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 Ot Z95.828 PRESENCE OF OTHER VASCULAR IMPLANTS AND 11/17/2018 NINA ANAYA APRN Ot C34.12 MALIGNANT NEOPLASM OF UPPER LOBE, LEFT B 11/17/2018 NNIA ANAYA APRN Ot F17.201 NICOTINE DEPENDENCE, UNSPECIFIED, IN REM 11/17/2018 NINA ANAYA APRN Ot 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 11/17/2018 NINA ANAYA APRN Ot I70.0 [...] 11/17/2018 DEE, BOBAN N Ot Z79.899 OTHER ADMINISTRATIVE SALES ASSISTANT (CURRENT) DRUG THERAPY 11/17/2018 DEE, BOBAN N [...] 11/18/2018 DEE, BOBAN N Ot Z79.899 OTHER NURSING HOME (CURRENT) DRUG THERAPY 11/18/2018 DEE, BOBAN N [...] 11/23/2018 STEPHEN PRICE Flavio Ot Z79.899 OTHER NURSING HOME (CURRENT) DRUG THERAPY 11/23/2018 STEPHEN PRICE Flavio Ot Z87.891 PERSONAL HISTORY OF NICOTINE DEPENDENCE 11/24/2018 STEPHEN PRICE Flavio Ot C34.12 MALIGNANT NEOPLASM OF UPPER LOBE, LEFT B 11/24/2018 STEPHEN PRICE Flavio Ot C79.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 11/24/2018 STEPHEN PRICE Flavio Ot Z01.89 ENCOUNTER FOR OTHER SPECIFIED SPECIAL EX 11/25/2018 FAVIAN COWARTP Ot E78.00 PURE HYPERCHOLESTEROLEMIA, UNSPECIFIED 11/25/2018 SOFYA, FAVIAN 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 Ot F17.210 NICOTINE DEPENDENCE, CIGARETTES, UNCOMPL 11/25/2018 SOFYA, FAVIAN 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 Ot F17.290 NICOTINE DEPENDENCE, OTHER TOBACCO PRODU 11/25/2018 FAVIAN COWARTP Ot G40.909 EPILEPSY, UNSP, NOT INTRACTABLE, WITHOUT 11/25/2018 SOFYA FAVIAN 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 Ot G47.30 SLEEP APNEA, UNSPECIFIED 11/25/2018 SOFYA FAVIAN 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 Ot G62.9 POLYNEUROPATHY, UNSPECIFIED 11/25/2018 SOFYA, FAVIAN 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 Ot I10 ESSENTIAL (PRIMARY) HYPERTENSION 11/25/2018 SOFYA FAVIAN 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 Ot J06.9 ACUTE UPPER RESPIRATORY INFECTION, UNSPE 11/25/2018 FAVIAN COWARTP Ot J44.9 CHRONIC OBSTRUCTIVE PULMONARY DISEASE, U 11/25/2018 FAVIAN COWARTP Ot R05 COUGH 11/25/2018 FAVIAN COWART 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 Ot S12.100A UNSP DISP FX OF SECOND CERVICAL VERTEBRA 11/25/2018 FAVIAN COWARTP Ot W19.XXXA UNSPECIFIED FALL, INITIAL ENCOUNTER 11/25/2018 FAVIAN COWARTP Ot Z79.51 NURSING HOME (CURRENT) USE OF INHALED STERO 11/25/2018 FAVIAN COWARTP Ot Z82.49 FAMILY HX OF ISCHEM HEART DIS AND OTH DI 11/25/2018 SOFYAFAVIAN Bustos 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 Ot Z85.118 PERSONAL HISTORY OF MALIGNANT NEOPLASM O 11/25/2018 SOFYAFAVIAN Bustos 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 Ot Z87.81 PERSONAL HISTORY OF (HEALED) TRAUMATIC F 11/25/2018 SOFYA FAVIAN 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 Ot Z88.6 ALLERGY STATUS TO ANALGESIC AGENT STATUS 11/27/2018 FAVIAN COWART 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 Ot E78.00 PURE HYPERCHOLESTEROLEMIA, UNSPECIFIED 11/27/2018 SOFYA, FAVIAN 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 Ot F17.210 NICOTINE DEPENDENCE, CIGARETTES, UNCOMPL 11/27/2018 SOFYA, FAVIAN 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 Ot F17.290 NICOTINE DEPENDENCE, OTHER TOBACCO PRODU 11/27/2018 SOFYA, FAVIAN 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 Ot G40.909 EPILEPSY, UNSP, NOT INTRACTABLE, WITHOUT 11/27/2018 SOFYA, FAVIAN 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 Ot G47.30 SLEEP APNEA, UNSPECIFIED 11/27/2018 SOFYA, FAVIAN 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 Ot G62.9 POLYNEUROPATHY, UNSPECIFIED 11/27/2018 SOFYA, FAVIAN 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 Ot I10 ESSENTIAL (PRIMARY) HYPERTENSION 11/27/2018 SOFYA, FAVIAN 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 Ot J06.9 ACUTE UPPER RESPIRATORY INFECTION, UNSPE 11/27/2018 SOFYA, FAVIAN 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 Ot J44.9 CHRONIC OBSTRUCTIVE PULMONARY DISEASE, U 11/27/2018 FAVIAN COWART 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 Ot R05 COUGH 11/27/2018 SOFYA, FAVIAN 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 Ot S12.100A UNSP DISP FX OF SECOND CERVICAL VERTEBRA 11/27/2018 SOFYA, FAVIAN 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 Ot W19.XXXA UNSPECIFIED FALL, INITIAL ENCOUNTER 11/27/2018 FAVIAN COWART 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 Ot Z79.51 ADMINISTRATIVE SALES ASSISTANT (CURRENT) USE OF INHALED STERO 11/27/2018 FAVIAN COWART 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 Ot Z82.49 FAMILY HX OF ISCHEM HEART DIS AND OTH DI 11/27/2018 SOFYAFAVIAN Bustos 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 Ot Z85.118 PERSONAL HISTORY OF MALIGNANT NEOPLASM O 11/27/2018 FAVIAN COWART 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 Ot Z87.81 PERSONAL HISTORY OF (HEALED) TRAUMATIC F 11/27/2018 SOFYA FAVIAN 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 Ot Z88.6 ALLERGY STATUS TO ANALGESIC AGENT [...] CHEMOTHERAP 12/10/2018 STEPHEN PRICE Ot Z79.899 OTHER NURSING HOME (CURRENT) DRUG THERAPY 12/10/2018 STEPHEN PRICE Ot [...] INITIAL ENCOUNTER 01/09/2019 FAVIAN COWART Ot Z79.51 ADMINISTRATIVE SALES ASSISTANT (CURRENT) USE OF INHALED STERO 01/09/2019 FAVIAN [...] MALIGNANT NEOPLASM OF UNSPECIF 01/18/2019 SOFYA, FAVIAN 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 Ot E78.00 PURE HYPERCHOLESTEROLEMIA, UNSPECIFIED 01/18/2019 SOFYA FAVIAN 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 Ot G40.909 EPILEPSY, UNSP, NOT INTRACTABLE, WITHOUT 01/18/2019 FAVIAN COWART 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 Ot G62.9 POLYNEUROPATHY, UNSPECIFIED 01/18/2019 FAVIAN COWART 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 Ot I10 ESSENTIAL (PRIMARY) HYPERTENSION 01/18/2019 FAVIAN COWARTP Ot J44.9 CHRONIC OBSTRUCTIVE PULMONARY DISEASE, U 01/18/2019 FAVIAN COWART 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 Ot M19.012 PRIMARY OSTEOARTHRITIS, LEFT SHOULDER 01/18/2019 FAVIAN COWART 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 Ot M25.512 PAIN IN LEFT SHOULDER 01/18/2019 FAVIAN COWART 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 Ot M75.102 UNSP ROTATR-CUFF TEAR/RUPTR OF LEFT SHOU 01/18/2019 FAVIAN COWART 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 Ot W19.XXXA UNSPECIFIED FALL, INITIAL ENCOUNTER 01/18/2019 FAVIAN COWARTP Ot Z79.51 NURSING HOME (CURRENT) USE OF INHALED STERO 01/18/2019 FAVIAN COWART 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 Ot Z82.49 FAMILY HX OF ISCHEM HEART DIS AND OTH DI 01/18/2019 FAVIAN COWART 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 Ot Z87.891 PERSONAL HISTORY OF NICOTINE DEPENDENCE 01/18/2019 FAVIAN COWART 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 Ot Z88.6 ALLERGY STATUS TO ANALGESIC AGENT STATUS 01/18/2019 FAVIAN COWART 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 Ot Z99.81 DEPENDENCE ON SUPPLEMENTAL OXYGEN 01/21/2019 FAVIAN COWART 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 Ot C34.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 01/21/2019 FAVIAN COWART 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 Ot C79.9 SECONDARY MALIGNANT NEOPLASM OF UNSPECIF 01/21/2019 FAVIAN COWART 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 Ot E78.00 PURE HYPERCHOLESTEROLEMIA, UNSPECIFIED 01/21/2019 FAVIAN COWART 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 Ot G40.909 EPILEPSY, UNSP, NOT INTRACTABLE, WITHOUT 01/21/2019 FAVIAN COWART 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 Ot G62.9 POLYNEUROPATHY, UNSPECIFIED 01/21/2019 SOFYA FAVIAN 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 Ot I10 ESSENTIAL (PRIMARY) HYPERTENSION 01/21/2019 FAVIAN COWART 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 Ot J44.9 CHRONIC OBSTRUCTIVE PULMONARY DISEASE, U 01/21/2019 FAVIAN COWART 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 Ot M19.012 PRIMARY OSTEOARTHRITIS, LEFT SHOULDER 01/21/2019 FAVIAN COWART Ot M25.512 PAIN IN LEFT SHOULDER 01/21/2019 SOFYAFAVIAN Bustos Ot M75.102 UNSP ROTATR-CUFF TEAR/RUPTR OF LEFT SHOU 01/21/2019 SOFYAFAVIAN Bustos Ot W19.XXXA UNSPECIFIED FALL, INITIAL ENCOUNTER 01/21/2019 SOFYAFAVIAN Bustos Ot Z79.51 ADMINISTRATIVE SALES ASSISTANT (CURRENT) USE OF INHALED STERO 01/21/2019 FAVIAN [...] CHEMOTHERAP 02/17/2019 STEPHEN PRICE Ot Z79.899 OTHER NURSING HOME (CURRENT) DRUG THERAPY 02/17/2019 STEPHEN PRICE Ot [...] ANTINEOPLASTIC CHEMOTHERAP 02/18/2019 DEESTEPHEN Ot Z79.899 OTHER ADMINISTRATIVE SALES ASSISTANT (CURRENT) DRUG THERAPY 02/18/2019 DEE, STEPHEN Muniz [...] 02/20/2019 GELLENDER DO, AMANDEEP Pineda Ot Z79.51 NURSING HOME (CURRENT) USE OF INHALED STERO 02/20/2019 GELLENDER DO, AMANDEEP Pineda Ot Z85.118 PERSONAL HISTORY OF MALIGNANT NEOPLASM O 02/20/2019 GELLENDER DO, AMANDEEP Pineda Ot Z87.891 PERSONAL HISTORY OF NICOTINE DEPENDENCE 02/20/2019 CHADWICK LASSITER, AMANDEEP Pineda Ot Z99.81 DEPENDENCE ON SUPPLEMENTAL OXYGEN 02/21/2019 CHADWICK LASSITER, AMANDEEP Pineda Ot M47.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 02/21/2019 [facility] AMANDEEP Pineda Ot S12.110A ANTERIOR DISPLACED TYPE II DENS FRACTURE 02/21/2019 CHADWICK LASSITER, AMANDEEP Pineda Ot W19.XXXA UNSPECIFIED FALL, INITIAL ENCOUNTER 03/12/2019 CHADWICK LASSITER, AMANDEEP Pineda Ot R56.9 UNSPECIFIED CONVULSIONS 03/12/2019 [facility] AM[facility] Pineda Ot F17.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, UNSPECIFIED, UNCOMP 03/12/2019 [facility] AMANDEEP Pineda Ot J44.9 CHRONIC OBSTRUCTIVE PULMONARY DISEASE, U 03/12/2019 [facility] AMANDEEP Pineda Ot R63.4 ABNORMAL WEIGHT LOSS 03/12/2019 [facility] AMANDEEP Pineda Ot J44.9 CHRONIC OBSTRUCTIVE PULMONARY DISEASE, U 03/12/2019 [facility] AMANDEEP Pineda Ot R63.4 ABNORMAL WEIGHT LOSS 03/12/2019 [facility], AMANDEEP Pineda Ot R63.4 ABNORMAL WEIGHT LOSS 03/12/2019 [facility], AMANDEEP Pineda Ot G40.909 EPILEPSY, UNSP, NOT INTRACTABLE, WITHOUT 03/12/2019 [facility] AMANDEEP Pineda Ot J44.9 CHRONIC OBSTRUCTIVE PULMONARY DISEASE, U 03/12/2019 [facility], AMANDEEP Pineda Ot E87.1 HYPO-OSMOLALITY AND HYPONATREMIA 03/12/2019 CHADWICK LASSITERAMANDEEP Ot G40.909 EPILEPSY, UNSP, NOT INTRACTABLE, WITHOUT 03/12/2019 [facility], AMANDEEP Pineda Ot J44.9 CHRONIC OBSTRUCTIVE PULMONARY DISEASE, U 03/12/2019 [facility] AMANDEEP Pineda Ot G40.909 EPILEPSY, UNSP, NOT INTRACTABLE, WITHOUT 03/12/2019 [facility] AMANDEEP Ot J34.89 OTHER SPECIFIED DISORDERS [...] OBSTRUCTIVE PULMONARY DISEASE, U 03/12/2019 NINA ANAYA TORCH HEATER Ot M79.604 PAIN IN RIGHT LEG 03/12/2019 NINA ANAYA TORCH HEATER Ot M79.605 PAIN IN LEFT LEG 03/12/2019 NINA ANAYA TORCH HEATER Ot M79.89 OTHER SPECIFIED SOFT TISSUE DISORDERS 03/12/2019 NINA ANAYA TORCH HEATER Ot R91.8 OTHER NONSPECIFIC ABNORMAL FINDING OF DAVID 03/12/2019 SIVA RESENDIZP Ot C34.12 MALIGNANT NEOPLASM OF UPPER LOBE, LEFT B 03/12/2019 SIVA RESENDIZ 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 Ot C79.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 03/12/2019 AMANDEEP GENAO DO Ot B35.1 TINEA UNGUIUM 03/12/2019 SIVA RESENDIZ 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 Ot C34.12 MALIGNANT NEOPLASM OF UPPER LOBE, LEFT B 03/12/2019 SIVA RESENDIZ Ot C79.51 SECONDARY MALIGNANT NEOPLASM OF BONE 03/12/2019 SIVA RESENDIZ Ot C34.12 MALIGNANT NEOPLASM OF UPPER LOBE, LEFT B 03/12/2019 SIVA RESENDIZ Ot C34.12 MALIGNANT NEOPLASM OF UPPER LOBE, LEFT B 03/12/2019 SIVA RESENDIZ Ot C79.51 SECONDARY MALIGNANT NEOPLASM OF BONE 03/12/2019 JOSEBRAYAN AMANDEEP LASSITER Ot M43.12 SPONDYLOLISTHESIS, CERVICAL REGION 03/12/2019 [facility] AMANDEEP LASSITER Ot M47.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 03/12/2019 [facility] AMANDEEP LASSITER Ot S19.9XXA UNSPECIFIED INJURY OF NECK, INITIAL ENCO 03/12/2019 SIVA RESENDIZ Ot C34.12 MALIGNANT NEOPLASM OF UPPER LOBE, LEFT B 03/12/2019 SIVA RESENDIZ Ot C79.51 SECONDARY MALIGNANT NEOPLASM OF BONE 03/12/2019 [facility] Ot M19.011 PRIMARY OSTEOARTHRITIS, RIGHT SHOULDER 03/12/2019 [facility] Ot M79.621 PAIN IN RIGHT UPPER ARM 03/12/2019 [facility] Ot S79.911A UNSPECIFIED INJURY OF RIGHT HIP, INITIAL 03/12/2019 [place] LASSITERAMANDEEP Ot W19.XXXA UNSPECIFIED FALL, INITIAL ENCOUNTER 03/12/2019 JOSEBRAYAN AAMNDEEP LASSITER Ot R05 COUGH 03/12/2019 [facility] LASSITERAMANDEEP Ot R91.8 OTHER NONSPECIFIC ABNORMAL FINDING OF DAVID 03/12/2019 [facility] Ot Z95.828 PRESENCE OF OTHER VASCULAR IMPLANTS AND 03/12/2019 SIVA RESENDIZ Ot J98.11 ATELECTASIS 03/12/2019 SIVA RESENDIZ Ot M43.12 SPONDYLOLISTHESIS, CERVICAL REGION 03/12/2019 SIVA RESENDIZ Ot M47.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 03/12/2019 SIVA RESENDIZ Ot S12.190A OTH DISP FX OF SECOND CERVICAL VERTEBRA, 03/12/2019 SIVA RESENDIZ 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 Ot W19.XXXA UNSPECIFIED FALL, INITIAL ENCOUNTER 03/12/2019 SIVA RESENDIZ 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 Ot Z95.828 PRESENCE OF OTHER VASCULAR IMPLANTS AND 03/12/2019 NINA ANAYA APRN Ot C34.12 MALIGNANT NEOPLASM OF UPPER LOBE, LEFT B 03/12/2019 NINA ANAYA TORCH HEATER Ot F17.201 NICOTINE DEPENDENCE, UNSPECIFIED, IN REM 03/12/2019 NINA ANAYA TORCH HEATER Ot 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 03/12/2019 NINA ANAYA APRN Ot I70.0 [...] Ot J18. 9 PNEUMONIA, UNSPECIFIED ORGANISM 03/12/2019 RNAI PACHECO DO Ot J44. 1 CHRONIC OBSTRUCTIVE PULMONARY DISEASE W 03/12/2019 RANI PACHCEO DO Ot J96. 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 03/12/2019 EFRAIN RESENDIZBRENDA Jennifer CAR Ot Z85.118 PERSONAL HISTORY OF MALIGNANT NEOPLASM O 03/12/2019 [place] LASSITERAMANDEEP Ot M19.012 PRIMARY OSTEOARTHRITIS, LEFT SHOULDER 03/12/2019 [facility] Ot S49.92XA UNSP INJURY OF LEFT SHOULDER AND UPPER A 03/12/2019 [facility] AMANDEEP Ot W19.XXXA UNSPECIFIED FALL, INITIAL ENCOUNTER 03/12/2019 [place] LASSITERAMANDEEP Ot M47.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 03/12/2019 [facility] Ot S12.110D ANT DISPL TYPE II DENS FRACTURE, SUBS FO 03/12/2019 [place] LASSITERAMANDEEP Ot W19.XXXD UNSPECIFIED FALL, SUBSEQUENT ENCOUNTER 03/12/2019 [place] LASSITERAMANDEEP Ot M47.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 03/12/2019 [facility] S12.110A ANTERIOR DISPLACED TYPE II DENS FRACTURE 03/12/2019 [facility] Ot W19.XXXA UNSPECIFIED FALL, INITIAL ENCOUNTER [...] CHEMOTHERAP 03/12/2019 STEPHEN PRICE Ot Z79.899 OTHER ADMINISTRATIVE SALES ASSISTANT (CURRENT) DRUG THERAPY 03/12/2019 STEPHEN PRICE Ot [...] PULMONARY DISEASE, U 03/12/2019 GELLENDER DO, AMANDEEP iPneda Ot E87.1 HYPO-OSMOLALITY AND HYPONATREMIA 03/12/2019 GELLENDER [...] PAIN IN LEFT LEG 03/12/2019 NINA ANAYA TORCH HEATER Ot M79.89 OTHER SPECIFIED SOFT TISSUE DISORDERS 03/12/2019 NINA ANAYA TORCH HEATER Ot R91.8 OTHER NONSPECIFIC ABNORMAL FINDING OF DAVID 03/12/2019 SIVA RESENDIZP Ot C34.12 MALIGNANT NEOPLASM OF UPPER LOBE, LEFT B 03/12/2019 SIVA RESENDIZP Ot C79.51 SECONDARY MALIGNANT NEOPLASM OF BONE 03/12/2019 AMANDEEP GENAO DO Ot B35.1 TINEA UNGUIUM 03/12/2019 SIVA RESENDIZ 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 Ot C34.12 MALIGNANT NEOPLASM OF UPPER LOBE, LEFT B 03/12/2019 SIVA RESENDIZ Ot C79.51 SECONDARY MALIGNANT NEOPLASM OF BONE 03/12/2019 SIVA RESENDIZ Ot C34.12 MALIGNANT NEOPLASM OF UPPER LOBE, LEFT B 03/12/2019 SIVA RESENDIZ Ot C34.12 MALIGNANT NEOPLASM OF UPPER LOBE, LEFT B 03/12/2019 SIVA RESENDIZ Ot C79.51 SECONDARY MALIGNANT NEOPLASM OF BONE 03/12/2019 [facility] LASSITERAMANDEEP Ot M43.12 SPONDYLOLISTHESIS, CERVICAL REGION 03/12/2019 [...] SECOND CERVICAL VERTEBRA, 03/12/2019 RESENDIZ, HILAH S 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 Ot W19.XXXA UNSPECIFIED FALL, INITIAL ENCOUNTER 03/12/2019 SIVA RESENDIZ JOCELINE Ot Z95.828 PRESENCE OF OTHER VASCULAR IMPLANTS AND 03/12/2019 NINA ANAYA APRN Ot C34.12 MALIGNANT NEOPLASM OF UPPER LOBE, LEFT B 03/12/2019 NINA ANAYA APRN Ot F17.201 NICOTINE DEPENDENCE, UNSPECIFIED, IN REM 03/12/2019 NINA ANAYA APRN Ot 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 03/12/2019 NINA ANAYA APRN Ot I70.0 [...] CAR Ot 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 03/12/2019 SIVA RESENDIZP Ot I70.0 ATHEROSCLEROSIS OF [place] 03/12/2019 SIVA RESENDIZP Ot J43.9 EMPHYSEMA, UNSPECIFIED 03/12/2019 SIVA RESNEDIZ Ot N28.1 CYST OF KIDNEY, ACQUIRED 03/12/2019 SIVA RESENDIZP Ot Z01.89 ENCOUNTER FOR OTHER SPECIFIED SPECIAL EX 03/12/2019 EFRAIN RESENDIZBRENDA Jennifer ROSASP Ot Z79.51 NURSING HOME (CURRENT) USE OF INHALED STERO 03/12/2019 SIVA [...] M47.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 03/12/2019 [facility] Ot S12.110A ANTERIOR DISPLACED TYPE II DENS FRACTURE 03/12/2019 [facility] AMANDEEP Ot W19.XXXA UNSPECIFIED FALL, INITIAL ENCOUNTER [...] 03/12/2019 DEE BOBAN N Ot Z79.899 OTHER ADMINISTRATIVE SALES ASSISTANT (CURRENT) DRUG THERAPY 03/12/2019 DEE SABASAN N Ot Z87.891 PERSONAL HISTORY OF NICOTINE DEPENDENCE 03/16/2019 HÉCTOR NINA E TORCH HEATER Ot C34.12 MALIGNANT NEOPLASM OF UPPER LOBE, LEFT B 03/16/2019 HÉCTOR, NINA E TORCH HEATER Ot F17.201 NICOTINE DEPENDENCE, UNSPECIFIED, IN REM 03/16/2019 HÉCTOR NINA E TORCH HEATER Ot J18.9 PNEUMONIA, UNSPECIFIED ORGANISM 03/16/2019 HÉCTOR, NINA E TORCH HEATER Ot J44.1 CHRONIC OBSTRUCTIVE PULMONARY DISEASE W 03/16/2019 HÉCTOR, NINA E TORCH HEATER Ot J96.20 ACUTE AND CHR RESP FAILURE, UNSP W HYPOX 03/19/2019 HÉCTOR NINA E TORCH HEATER Ot C34.12 MALIGNANT NEOPLASM OF UPPER LOBE, LEFT B 03/19/2019 HÉCTOR, NINA E TORCH HEATER Ot F17.201 NICOTINE DEPENDENCE, UNSPECIFIED, IN REM 03/19/2019 HÉCTOR, NINA E TORCH HEATER Ot J18.9 PNEUMONIA, UNSPECIFIED ORGANISM 03/19/2019 HÉCTOR NINA E TORCH HEATER Ot J44.1 CHRONIC OBSTRUCTIVE PULMONARY DISEASE W 03/19/2019 HÉCTOR, NINA E TORCH HEATER Ot J96.20 ACUTE AND CHR RESP FAILURE, [...] 03/30/2019 DEE BOBAN N Ot Z79.899 OTHER ADMINISTRATIVE SALES ASSISTANT (CURRENT) DRUG THERAPY 03/30/2019 STEPHEN PRICE Ot [...] CHEMOTHERAP 04/04/2019 STEPHEN PRICE Ot Z79.899 OTHER NURSING HOME (CURRENT) DRUG THERAPY 04/04/2019 STEPHEN PRICE Ot [...] RESENDIZP Ot 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 04/13/2019 SIVA RESENDIZP Ot I70.0 ATHEROSCLEROSIS OF [place] 04/13/2019 SIVA RESENDIZP Ot J43.9 EMPHYSEMA, UNSPECIFIED 04/13/2019 SIVA RESENDIZ Ot N28.1 CYST OF KIDNEY, ACQUIRED 04/13/2019 SIVA RESENDIZP Ot Z01.89 ENCOUNTER FOR OTHER SPECIFIED SPECIAL EX 04/13/2019 SIVA RESENDIZ 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 Ot Z79.51 NURSING HOME (CURRENT) USE OF INHALED STERO 04/13/2019 SIVA RESENDIZ 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 Ot Z85.118 PERSONAL HISTORY OF MALIGNANT NEOPLASM [...] 04/22/2019 MARY RIOS, STEFAN Zuniga Ot Z79.51 ADMINISTRATIVE SALES ASSISTANT (CURRENT) USE OF INHALED STERO 04/22/2019 MARY [...] CHEMOTHERAP 05/10/2019 STEPHEN PRICE Ot Z79.899 OTHER ADMINISTRATIVE SALES ASSISTANT (CURRENT) DRUG THERAPY 05/10/2019 STEPHEN PRICE Ot [...] 05/19/2019 GELLENDER DO, AMANDEEP Pineda Ot Z79.891 NURSING HOME (CURRENT) USE OF OPIATE ANALGE 05/19/2019 GELLENDER DO, AMANDEEP Pineda Ot Z79.899 OTHER ADMINISTRATIVE SALES ASSISTANT (CURRENT) DRUG THERAPY 05/19/2019 GELLENDER DO, AMANDEEP [...] 05/19/2019 GELLENDER DO, AMANDEEP Pineda Ot Z79.891 ADMINISTRATIVE SALES ASSISTANT (CURRENT) USE OF OPIATE ANALGE 05/19/2019 GELLENDER DO, AMANDEEP Pineda Ot Z79.899 OTHER ADMINISTRATIVE SALES ASSISTANT (CURRENT) DRUG THERAPY 05/19/2019 GELLENDER DO, AMANDEEP [...] UNSPECIFIED FALL, INITIAL ENCOUNTER 05/31/2019 SIVA RESENDIZ 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 Ot G25.5 OTHER [place] 05/31/2019 SIVA RESENDIZ 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 Ot 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 MAXILLARY SINUSITIS 05/31/2019 SIVA RESENDIZ 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 Ot R 51 HEADACHE 05/31/2019 SIVA RESENDIZ 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 Ot W19.XXXA UNSPECIFIED FALL, INITIAL ENCOUNTER 06/01/2019 SIVA RESENDIZ 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 Ot G25.5 OTHER [place] 06/01/2019 SIVA RESENDIZ 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 Ot 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 MAXILLARY SINUSITIS 06/01/2019 SIVA RESENDIZ 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 Ot R 51 HEADACHE 06/01/2019 SIVA RESENDIZ 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 Ot W19.XXXA UNSPECIFIED FALL, INITIAL ENCOUNTER 06/04/2019 MARY RIOS, STEFAN Zuniga Ot C34.90 MALIGNANT NEOPLASM OF UNSP [facility] 06/04/2019 MARY RIOS, STEFAN Zuniga Ot E78.00 [...] Ot W19.XXXA UNSPECIFIED FALL, INITIAL ENCOUNTER 06/08/2019 [facility] AMANDEEP Pineda Ot Y99.8 OTHER EXTERNAL CAUSE STATUS 06/08/2019 GELLENDER DO, AMANDEEP Pineda Ot G40.909 EPILEPSY, UNSP, NOT INTRACTABLE, WITHOUT 06/08/2019 GELLENDER DO, AMANDEEP Pineda Ot R06.02 SHORTNESS OF BREATH 06/08/2019 [facility] AMANDEEP Pineda Ot R63.4 ABNORMAL [...] DO Ot Z72. 0 TOBACCO USE 06/08/2019 [facility], AMANDEEP Pineda Ot J44.9 CHRONIC OBSTRUCTIVE PULMONARY DISEASE, U 06/08/2019 NINA ANAYA APRN Ot M79.604 PAIN IN RIGHT LEG 06/08/2019 NINA ANAYA APRN Ot M79.605 PAIN IN LEFT LEG 06/08/2019 NINA ANAYA APRN Ot M79.89 OTHER SPECIFIED SOFT TISSUE DISORDERS 06/08/2019 NINA ANAYA TORCH HEATER Ot R91.8 OTHER NONSPECIFIC ABNORMAL FINDING OF DAVID 06/08/2019 SIVA RESENDIZ S 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 Ot C34.12 MALIGNANT NEOPLASM OF UPPER LOBE, LEFT B 06/08/2019 SIVA RESENDIZ S 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 Ot C79.51 SECONDARY MALIGNANT NEOPLASM OF BONE 06/08/2019 [facility], AMANDEEP Pineda Ot B35.1 TINEA UNGUIUM 06/08/2019 SIVA RESENDIZ S 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 Ot C34.12 MALIGNANT NEOPLASM OF UPPER LOBE, LEFT B 06/08/2019 SIVA RESENDIZ S 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 Ot C79.51 SECONDARY MALIGNANT NEOPLASM OF BONE 06/08/2019 SIVA RESENDIZ S 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 Ot C34.12 MALIGNANT NEOPLASM OF UPPER LOBE, LEFT B 06/08/2019 SIVA RESENDIZ S 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 Ot C34.12 MALIGNANT NEOPLASM OF UPPER LOBE, LEFT B 06/08/2019 MARTÍN HILBRENDA S 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 Ot C79.51 SECONDARY MALIGNANT NEOPLASM OF BONE 06/08/2019 [facility], AMANDEEP Pineda Ot M43.12 SPONDYLOLISTHESIS, CERVICAL REGION 06/08/2019 [facility] Ot M47.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 06/08/2019 [facility] Ot S19.9XXA UNSPECIFIED INJURY OF NECK, INITIAL ENCO 06/08/2019 SIVA RESENDIZ S 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 Ot C34.12 MALIGNANT NEOPLASM OF UPPER LOBE, LEFT B 06/08/2019 SIVA RESENDIZ S 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 Ot C79.51 SECONDARY MALIGNANT NEOPLASM OF BONE 06/08/2019 [facility] Ot M19.011 PRIMARY OSTEOARTHRITIS, RIGHT SHOULDER 06/08/2019 [facility] Ot M79.621 PAIN IN RIGHT UPPER ARM [...] VASCULAR IMPLANTS AND 06/08/2019 SIVA RESENDIZ S 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 Ot J98.11 ATELECTASIS 06/08/2019 SIVA RESENDIZ S 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 Ot M43.12 SPONDYLOLISTHESIS, CERVICAL REGION 06/08/2019 SIVA RESENDIZ S 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 Ot M47.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 06/08/2019 SIVA RESENDIZ S 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 Ot S12.190A OTH DISP FX OF SECOND CERVICAL VERTEBRA, 06/08/2019 SIVA RESENDIZ S 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 Ot W19.XXXA UNSPECIFIED FALL, INITIAL ENCOUNTER 06/08/2019 SIVA RESENDIZ 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 Ot Z95.828 PRESENCE OF OTHER VASCULAR IMPLANTS AND 06/08/2019 NINA ANAYA APRN Ot C34.12 MALIGNANT NEOPLASM OF UPPER LOBE, LEFT B 06/08/2019 NINA ANAYA TORCH HEATER Ot F17.201 NICOTINE DEPENDENCE, UNSPECIFIED, IN REM 06/08/2019 NINA ANAYA TORCH HEATER Ot 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 06/08/2019 NINA ANAYA TORCH HEATER Ot I70.0 ATHEROSCLEROSIS OF [place] 06/08/2019 NINA ANAYA TORCH HEATER Ot J18.9 PNEUMONIA, UNSPECIFIED ORGANISM 06/08/2019 NINA ANAYA TORCH HEATER Ot J43.9 EMPHYSEMA, UNSPECIFIED 06/08/2019 NINA ANAYA TORCH HEATER Ot J96.20 ACUTE AND CHR RESP FAILURE, UNSP W HYPOX 06/08/2019 NINA ANAYA TORCH HEATER Ot J98.4 OTHER DISORDERS OF LUNG 06/08/2019 NINA ANAYA TORCH HEATER Ot R91.8 OTHER NONSPECIFIC ABNORMAL FINDING OF [...] UPPER LOBE, LEFT B 06/08/2019 NINA ANAYA TORCH HEATER Ot F17.201 NICOTINE DEPENDENCE, UNSPECIFIED, IN REM 06/08/2019 NINA ANAYA TORCH HEATER Ot J18.9 PNEUMONIA, UNSPECIFIED ORGANISM 06/08/2019 NINA ANAYA TORCH HEATER Ot J44.1 CHRONIC OBSTRUCTIVE PULMONARY DISEASE W 06/08/2019 NINA ANAYA TORCH HEATER Ot J96.20 ACUTE AND CHR RESP FAILURE, UNSP W HYPOX 06/08/2019 AMANDEEP GENAO DO Ot R56.9 UNSPECIFIED CONVULSIONS 06/08/2019 SIVA RESENDIZP Ot 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 06/08/2019 SIVA RESENDIZ 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 Ot I70.0 ATHEROSCLEROSIS OF [place] 06/08/2019 SIVA RESENDIZ 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 Ot J43.9 EMPHYSEMA, UNSPECIFIED 06/08/2019 SIVA RESENDIZ 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 Ot N28.1 CYST OF KIDNEY, ACQUIRED 06/08/2019 SIVA RESENDIZ 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 Ot Z01.89 ENCOUNTER FOR OTHER SPECIFIED SPECIAL EX 06/08/2019 RESENDIZ, HILAH S 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 Ot Z79.51 ADMINISTRATIVE SALES ASSISTANT (CURRENT) USE OF INHALED STERO 06/08/2019 SIVA RESENDIZ 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 Ot Z85.118 PERSONAL HISTORY OF MALIGNANT NEOPLASM [...] CHEMOTHERAP 06/08/2019 STEPHEN PRICE Ot Z79.899 OTHER ADMINISTRATIVE SALES ASSISTANT (CURRENT) DRUG THERAPY 06/08/2019 STEPHEN PRICE Ot Z87.891 PERSONAL HISTORY OF NICOTINE DEPENDENCE 06/08/2019 STEPHEN PRICE Ot Z92.21 PERSONAL HISTORY OF ANTINEOPLASTIC CHEMO 06/08/2019 SIVA RESENDIZP Ot M19.072 PRIMARY OSTEOARTHRITIS, LEFT ANKLE AND F 06/08/2019 RESENDIZSIVA Rodriguez 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 Ot W19.XXXA UNSPECIFIED FALL, INITIAL ENCOUNTER 06/08/2019 SIVA RESENDIZ 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 Ot G25.5 OTHER [place] 06/08/2019 SIVA RESENDIZ 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 Ot 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 MAXILLARY SINUSITIS 06/08/2019 SIVA RESENDIZ 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 Ot R 51 HEADACHE 06/08/2019 SIVA RESENDIZ 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 Ot W19.XXXA UNSPECIFIED FALL, INITIAL ENCOUNTER 06/09/2019 [...] CHEMOTHERAP 06/10/2019 STEPHEN PRICE Ot Z79.899 OTHER ADMINISTRATIVE SALES ASSISTANT (CURRENT) DRUG THERAPY 06/10/2019 STEPHEN PRICE Ot Z87.891 PERSONAL HISTORY OF NICOTINE DEPENDENCE 06/10/2019 STEPHEN PRICE Ot Z92.21 PERSONAL HISTORY OF ANTINEOPLASTIC CHEMO 06/11/2019 GELLENDER DO, AMANDEEP Pineda Ot C78.00 SECONDARY MALIGNANT NEOPLASM OF UNSPECIF 06/11/2019 GELLENDER DO, AMANDEEP Pineda Ot E78.00 PURE HYPERCHOLESTEROLEMIA, UNSPECIFIED 06/11/2019 GELLENDER DO, AAMNDEEP Pnieda Ot E78.1 PURE HYPERGLYCERIDEMIA 06/11/2019 GELLENDER DO, AMANDEEP Pineda Ot E78.5 HYPERLIPIDEMIA, UNSPECIFIED 06/11/2019 GELLENDER DO, AMANDEEP Pineda Ot F17.210 NICOTINE DEPENDENCE, CIGARETTES, UNCOMPL 06/11/2019 GELLENDER DO, AMANDEEP Pineda Ot G40.909 EPILEPSY, UNSP, NOT INTRACTABLE, WITHOUT 06/11/2019 GELLENDER DO, AMANDEEP Pineda Ot G62.9 POLYNEUROPATHY, UNSPECIFIED 06/11/2019 GELLENDER DO, AMANDEEP Pineda Ot I10 ESSENTIAL (PRIMARY) HYPERTENSION 06/11/2019 GELLENDER DO, AMANDEEP Pineda Ot J30.9 ALLERGIC RHINITIS, UNSPECIFIED 06/11/2019 GELLENDER DO, AMANDEEP Pineda Ot J44.9 CHRONIC OBSTRUCTIVE PULMONARY DISEASE, U 06/11/2019 GELLENDER DO, AMANDEEP Pineda Ot M19.90 UNSPECIFIED OSTEOARTHRITIS, UNSPECIFIED 06/11/2019 GELLENDER DO, AMANDEEP Pineda Ot S82.302A UNSP FRACTURE OF LOWER END OF LEFT TIBIA 06/11/2019 GELLENDER DO, AMANDEEP Pineda Ot S82.832A OTH FRACTURE OF UPPER AND LOWER END OF L 06/11/2019 GELLENDER DO, AMANDEEP Pineda Ot Z79.891 ADMINISTRATIVE SALES ASSISTANT (CURRENT) USE OF OPIATE ANALGE 06/11/2019 GELLENDER DO, AMANDEEP Pineda Ot Z79.899 OTHER ADMINISTRATIVE SALES ASSISTANT (CURRENT) DRUG THERAPY 06/11/2019 GELLENDER DO, AMANDEEP [...] DEPENDENCE, CIGARETTES, UNCOMPL 06/11/2019 GELLENDER DO, AMANDEEP Pineda Ot G40.909 EPILEPSY, UNSP, NOT INTRACTABLE, WITHOUT 06/11/2019 GELLENDER DO, AMANDEEP Pineda Ot G62.9 POLYNEUROPATHY, UNSPECIFIED 06/11/2019 GELLENDER DO, [...] OF LEFT TIBIA 06/11/2019 GELLENDER DO, AMANDEEP Pineda Ot S82.832A OTH FRACTURE OF UPPER AND LOWER END OF L 06/11/2019 GELLENDER DO, AMANDEEP Miriam Ot Z79.891 NURSING HOME (CURRENT) USE OF OPIATE ANALGE 06/11/[facility] AM[facility] Pineda Ot Z79.899 OTHER ADMINISTRATIVE SALES ASSISTANT (CURRENT) DRUG THERAPY 06/11/2019 [facility] AMANDEEP Pineda Ot Z83.3 FAMILY HISTORY OF DIABETES MELLITUS 06/11/2019 [facility], AMANDEEP Pineda Ot Z85.830 PERSONAL HISTORY OF MALIGNANT NEOPLASM O 06/11/2019 GELLENDER DO, AMANDEEP Pineda Ot Z88.6 ALLERGY STATUS TO ANALGESIC AGENT STATUS 06/11/2019 GELLENDER DO, AMANDEEP Pineda Ot Z92.21 PERSONAL HISTORY OF ANTINEOPLASTIC CHEMO 06/14/2019 SIVA RESENDIZ Ot 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 06/14/2019 SIVA RESENDIZP Ot I70.0 ATHEROSCLEROSIS OF [place] 06/14/2019 SIVA RESENDIZP Ot J43.9 EMPHYSEMA, UNSPECIFIED 06/14/2019 SIVA RESENDIZP Ot N28.1 CYST OF KIDNEY, ACQUIRED 06/14/2019 SIVA RESENDIZP Ot Z01.89 ENCOUNTER FOR OTHER SPECIFIED SPECIAL EX 06/14/2019 SIVA RESENDIZP Ot Z79.51 NURSING HOME (CURRENT) USE OF INHALED STERO 06/14/2019 SIVA RESENDIZ 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 Ot Z85.118 PERSONAL HISTORY OF MALIGNANT NEOPLASM O 06/20/2019 STEPHEN PRICE Ot C34.12 MALIGNANT NEOPLASM OF UPPER LOBE, LEFT B 06/20/2019 STEPHEN PRICE Ot C79.51 SECONDARY MALIGNANT NEOPLASM OF BONE 06/20/2019 STEPHEN PRICE N Ot E78.5 HYPERLIPIDEMIA, UNSPECIFIED 06/20/2019 DEESTEPHEN N Ot G40.909 EPILEPSY, UNSP, NOT INTRACTABLE, WITHOUT 06/20/2019 DEESTEPHEN N Ot J43.9 EMPHYSEMA, UNSPECIFIED 06/20/2019 DEESTEPHEN N Ot Z51.11 ENCOUNTER FOR ANTINEOPLASTIC CHEMOTHERAP 06/20/2019 STEPHEN PRICE N Ot Z79.899 OTHER NURSING HOME (CURRENT) DRUG THERAPY 06/20/2019 STEPHEN PRICE N Ot Z87.891 PERSONAL HISTORY OF NICOTINE DEPENDENCE 06/20/2019 STEPHEN PRICE N Ot Z92.21 PERSONAL HISTORY OF ANTINEOPLASTIC CHEMO 06/21/2019 STEPHEN PRICE N Ot C34.12 MALIGNANT NEOPLASM OF UPPER LOBE, LEFT B 06/21/2019 STEPHEN PRICE N Ot C79.51 SECONDARY MALIGNANT NEOPLASM OF BONE 06/21/2019 STEPHEN PRICE N Ot E78.5 HYPERLIPIDEMIA, UNSPECIFIED 06/21/2019 DEESTEPHEN N Ot G40.909 EPILEPSY, UNSP, NOT INTRACTABLE, WITHOUT 06/21/2019 DEESTEPHEN N Ot J43.9 EMPHYSEMA, UNSPECIFIED 06/21/2019 DEESTEPHEN N Ot Z51.11 ENCOUNTER FOR ANTINEOPLASTIC CHEMOTHERAP 06/21/2019 STEPHEN PRICE N Ot Z79.899 OTHER NURSING HOME (CURRENT) DRUG THERAPY 06/21/2019 STEPHEN PRICE N Ot Z87.891 PERSONAL HISTORY OF NICOTINE DEPENDENCE 06/21/2019 STEPHEN PRICE N Ot Z92.21 PERSONAL HISTORY OF ANTINEOPLASTIC CHEMO 06/22/2019 MARCO RIOS, BALBIR Pineda Ot E78.00 PURE HYPERCHOLESTEROLEMIA, UNSPECIFIED 06/22/2019 MARCO RIOS, BALBIR Pineda Ot E87.2 ACIDOSIS 06/22/2019 MARCO RIOS, BALBIR Pineda Ot G1 4 POSTPOLIO SYNDROME 06/22/2019 MARCO RIOS, BALBIR Pineda Ot G40.909 EPILEPSY, UNSP, NOT INTRACTABLE, WITHOUT 06/22/2019 MARCO RIOS, BALBIR Pineda Ot G47.30 SLEEP APNEA, UNSPECIFIED 06/22/2019 MARCO RIOS, BALBIR Pineda Ot G62.9 POLYNEUROPATHY, UNSPECIFIED 06/22/2019 BALBIR LARA MD Ot I1 0 ESSENTIAL (PRIMARY) HYPERTENSION 06/22/2019 BALBIR LARA MD Ot J18.9 PNEUMONIA, UNSPECIFIED ORGANISM 06/22/2019 BALBIR LARA MD Ot J30.2 OTHER SEASONAL ALLERGIC RHINITIS 06/22/2019 BALBIR LARA MD Ot J44.1 CHRONIC OBSTRUCTIVE PULMONARY DISEASE W 06/22/2019 BALBIR LARA MD Ot 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, STAGE 1 06/22/2019 BALBIR LARA MD Ot L89.152 PRESSURE ULCER OF SACRAL REGION, STAGE 2 06/22/2019 BALBIR LARA MD Ot M19.91 PRIMARY OSTEOARTHRITIS, UNSPECIFIED SITE 06/22/2019 BALBIR LARA MD Ot R01.1 CARDIAC MURMUR, UNSPECIFIED 06/22/2019 BALBIR LARA MD Ot Z85.118 PERSONAL HISTORY OF MALIGNANT NEOPLASM O 06/22/2019 BALBIR LARA MD Ot Z85.830 PERSONAL HISTORY OF MALIGNANT NEOPLASM O 06/22/2019 BALBIR LARA MD Ot Z87.891 PERSONAL HISTORY OF NICOTINE DEPENDENCE 06/22/2019 BALBIR LARA MD Ot Z92.21 PERSONAL HISTORY OF ANTINEOPLASTIC CHEMO 06/22/2019 BALBIR LARA MD Ot E78.00 PURE HYPERCHOLESTEROLEMIA, UNSPECIFIED 06/22/2019 BALBIR LARA MD Ot E87.2 ACIDOSIS 06/22/2019 BALBIR LARA MD Ot G1 4 POSTPOLIO SYNDROME 06/22/2019 BALBIR LARA MD Ot G40.909 EPILEPSY, UNSP, NOT INTRACTABLE, WITHOUT 06/22/2019 BALBIR LARA MD Ot G47.30 SLEEP APNEA, UNSPECIFIED 06/22/2019 BALBIR LARA MD Ot G62.9 POLYNEUROPATHY, UNSPECIFIED 06/22/2019 BALBIR LARA MD Ot I1 0 ESSENTIAL (PRIMARY) HYPERTENSION 06/22/2019 BALBIR LARA MD Ot J18.9 PNEUMONIA, UNSPECIFIED ORGANISM 06/22/2019 BALBIR LARA MD Ot J30.2 OTHER SEASONAL ALLERGIC RHINITIS 06/22/2019 BALBIR LARA MD Ot J44.1 CHRONIC OBSTRUCTIVE PULMONARY DISEASE W 06/22/2019 BALBIR LARA MD Ot 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, STAGE 1 06/22/2019 BALBIR LARA MD Ot L89.152 PRESSURE ULCER OF SACRAL REGION, STAGE 2 06/22/2019 MARCO RIOS, BALBIR Pineda Ot M19.91 PRIMARY OSTEOARTHRITIS, UNSPECIFIED SITE 06/22/2019 MARCO RIOS, BALBIR Pineda Ot R01.1 CARDIAC MURMUR, UNSPECIFIED 06/22/2019 MARCO RIOS, BALBIR Pineda Ot Z85.118 PERSONAL HISTORY OF MALIGNANT NEOPLASM O 06/22/2019 MARCO RIOS, BALBIR Pineda Ot Z85.830 PERSONAL HISTORY OF MALIGNANT NEOPLASM O 06/22/2019 MARCO RIOS, BALBIR Pineda Ot Z87.891 PERSONAL HISTORY OF NICOTINE DEPENDENCE 06/22/2019 MARCO RIOS, BALBIR Pineda Ot Z92.21 PERSONAL HISTORY OF ANTINEOPLASTIC CHEMO 06/23/2019 MARCO RIOS, BALBIR Pineda Ot E78.00 PURE HYPERCHOLESTEROLEMIA, UNSPECIFIED 06/23/2019 BALBIR LARA MD Ot E87.2 ACIDOSIS 06/23/2019 BALBIR LARA MD Ot G1 4 POSTPOLIO SYNDROME 06/23/2019 MARCO RIOS, BALBIR Pineda Ot G40.909 EPILEPSY, UNSP, NOT INTRACTABLE, WITHOUT 06/23/2019 MARCO RIOS, BALBIR Pineda Ot G47.30 SLEEP APNEA, UNSPECIFIED 06/23/2019 BALBIR LARA MD Ot G62.9 POLYNEUROPATHY, UNSPECIFIED 06/23/2019 BALBIR LARA MD Ot I1 0 ESSENTIAL (PRIMARY) HYPERTENSION 06/23/2019 BALBIR LARA MD Ot J18.9 PNEUMONIA, UNSPECIFIED ORGANISM 06/23/2019 BALBIR LARA MD Ot J30.2 OTHER SEASONAL ALLERGIC RHINITIS 06/23/2019 BALBIR LARA MD Ot J44.1 CHRONIC OBSTRUCTIVE PULMONARY DISEASE W 06/23/2019 BALBIR LARA MD Ot 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, STAGE 1 06/23/2019 BALBIR LARA MD Ot L89.152 PRESSURE ULCER OF SACRAL REGION, STAGE 2 06/23/2019 BALBIR LARA MD Ot M19.91 PRIMARY OSTEOARTHRITIS, UNSPECIFIED SITE 06/23/2019 BALBIR LARA MD Ot R01.1 CARDIAC MURMUR, UNSPECIFIED 06/23/2019 BALBIR LARA MD Ot Z85.118 PERSONAL HISTORY OF MALIGNANT NEOPLASM O 06/23/2019 MARCO RIOS, BALBIR Pineda Ot Z85.830 PERSONAL HISTORY OF MALIGNANT NEOPLASM O 06/23/2019 MARCO RIOS, BALBIR Pineda Ot Z87.891 PERSONAL HISTORY OF NICOTINE DEPENDENCE 06/23/2019 MARCO RIOS, BALBIR Pineda Ot Z92.21 PERSONAL HISTORY OF ANTINEOPLASTIC CHEMO 06/23/2019 MARCO RIOS, BALBIR Pineda Ot E78.00 PURE HYPERCHOLESTEROLEMIA, UNSPECIFIED 06/23/2019 MARCO RIOS, BALBIR Pineda Ot E87.2 ACIDOSIS 06/23/2019 MARCO RIOS, BALBIR Pineda Ot G1 4 POSTPOLIO SYNDROME 06/23/2019 MARCO RIOS, BALBIR Pineda Ot G40.909 EPILEPSY, UNSP, NOT INTRACTABLE, WITHOUT 06/23/2019 MARCO RIOS, BALBIR Pineda Ot G47.30 SLEEP APNEA, UNSPECIFIED 06/23/2019 MARCO RIOS, BALBIR Pineda Ot G62.9 POLYNEUROPATHY, UNSPECIFIED 06/23/2019 BALBIR LARA MD Ot I1 0 ESSENTIAL (PRIMARY) HYPERTENSION 06/23/2019 BALBIR LARA MD Ot J18.9 PNEUMONIA, UNSPECIFIED ORGANISM 06/23/2019 MARCO RIOS, BALBIR Pineda Ot J30.2 OTHER SEASONAL ALLERGIC RHINITIS 06/23/2019 MARCO RIOS, BALBIR Pineda Ot J44.1 CHRONIC OBSTRUCTIVE PULMONARY DISEASE W 06/23/2019 MARCO RIOS, BALBIR Pineda Ot 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, STAGE 1 06/23/2019 BALBIR LARA MD Ot L89.152 PRESSURE ULCER OF SACRAL REGION, STAGE 2 06/23/2019 MARCO RIOS, BALBIR Pineda Ot M19.91 PRIMARY OSTEOARTHRITIS, UNSPECIFIED SITE 06/23/2019 BALBIR LARA MD Ot R01.1 CARDIAC MURMUR, UNSPECIFIED 06/23/2019 MARCO RIOS, BALBIR Pineda Ot Z85.118 PERSONAL HISTORY OF MALIGNANT NEOPLASM O 06/23/2019 BALBIR LARA MD Ot Z85.830 PERSONAL HISTORY OF MALIGNANT NEOPLASM O 06/23/2019 MARCO RIOS, BALBIR Pineda Ot Z87.891 PERSONAL HISTORY OF NICOTINE DEPENDENCE 06/23/2019 BALBIR LARA MD Ot Z92.21 PERSONAL HISTORY OF ANTINEOPLASTIC CHEMO 06/24/2019 BALBIR LARA MD Ot E78.00 PURE HYPERCHOLESTEROLEMIA, UNSPECIFIED 06/24/2019 MARCO RIOS, BALBIR Pineda Ot E87.2 ACIDOSIS 06/24/2019 BALBIR LARA MD Ot G1 4 POSTPOLIO SYNDROME 06/24/2019 MARCO RIOS, BALBIR Pineda Ot G40.909 EPILEPSY, UNSP, NOT INTRACTABLE, WITHOUT 06/24/2019 MARCO RIOS, BALBIR Pineda Ot G47.30 SLEEP APNEA, UNSPECIFIED 06/24/2019 MARCO RIOS, BALBIR Pineda Ot G62.9 POLYNEUROPATHY, UNSPECIFIED 06/24/2019 MARCO RIOS, BALBIR Pineda Ot I1 0 ESSENTIAL (PRIMARY) HYPERTENSION 06/24/2019 MARCO RIOS, BALBIR Pineda Ot J18.9 PNEUMONIA, UNSPECIFIED ORGANISM 06/24/2019 MARCO RIOS, BALBIR Pineda Ot J30.2 OTHER SEASONAL ALLERGIC RHINITIS 06/24/2019 MARCO RIOS, BALBIR Pineda Ot J44.1 CHRONIC OBSTRUCTIVE PULMONARY DISEASE W 06/24/2019 MARCO RIOS, BALBIR Pineda Ot 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, STAGE 1 06/24/2019 BALBIR LARA MD Ot L89.152 PRESSURE ULCER OF SACRAL REGION, STAGE 2 06/24/2019 MARCO RIOS, BALBIR Pineda Ot M19.91 PRIMARY OSTEOARTHRITIS, UNSPECIFIED SITE 06/24/2019 MARCO RIOS, BALBIR Pineda Ot R01.1 CARDIAC MURMUR, UNSPECIFIED 06/24/2019 MARCO RIOS, BALBIR Pineda Ot Z85.118 PERSONAL HISTORY OF MALIGNANT NEOPLASM O 06/24/2019 BALBIR LARA MD Ot Z85.830 PERSONAL HISTORY OF MALIGNANT NEOPLASM O 06/24/2019 BALBIR LARA MD Ot Z87.891 PERSONAL HISTORY OF NICOTINE DEPENDENCE 06/24/2019 MARCO RIOS, BALBIR Pineda Ot Z92.21 PERSONAL HISTORY OF ANTINEOPLASTIC CHEMO 06/25/2019 MARCO RIOS, BALBIR Pineda Ot E78.00 PURE HYPERCHOLESTEROLEMIA, UNSPECIFIED 06/25/2019 BALBIR LARA MD Ot E87.2 ACIDOSIS 06/25/2019 BALBIR LARA MD Ot G1 4 POSTPOLIO SYNDROME 06/25/2019 BALBIR LRAA MD Ot G40.909 EPILEPSY, UNSP, NOT INTRACTABLE, WITHOUT 06/25/2019 MARCO RIOS, BALBIR Pineda Ot G47.30 SLEEP APNEA, UNSPECIFIED 06/25/2019 BALBIR LARA MD A Ot G62.9 POLYNEUROPATHY, UNSPECIFIED 06/25/2019 BALBIR LARA MD Ot I1 0 ESSENTIAL (PRIMARY) HYPERTENSION 06/25/2019 MARCO RIOS, BALBIR Pineda Ot J18.9 PNEUMONIA, UNSPECIFIED ORGANISM 06/25/2019 MARCO RIOS, BALBIR Pineda Ot J30.2 OTHER SEASONAL ALLERGIC RHINITIS 06/25/2019 MARCO RIOS, BALBIR Pineda Ot J44.1 CHRONIC OBSTRUCTIVE PULMONARY DISEASE W 06/25/2019 MARCO RIOS, BALBIR Pineda Ot 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, STAGE 1 06/25/2019 BALBIR LARA MD Ot L89.152 PRESSURE ULCER OF SACRAL REGION, STAGE 2 06/25/2019 MARCO RIOS, BALBIR Pineda Ot M19.91 PRIMARY OSTEOARTHRITIS, UNSPECIFIED SITE 06/25/2019 MARCO RIOS, BALBIR Pineda Ot R01.1 CARDIAC MURMUR, UNSPECIFIED 06/25/2019 MARCO RIOS, BALBIR Pineda Ot Z85.118 PERSONAL HISTORY OF MALIGNANT NEOPLASM O 06/25/2019 BALBIR LARA MD Ot Z85.830 PERSONAL HISTORY OF MALIGNANT NEOPLASM O 06/25/2019 BALBIR LARA MD Ot Z87.891 PERSONAL HISTORY OF NICOTINE DEPENDENCE 06/25/2019 BALBIR LARA MD Ot Z92.21 PERSONAL HISTORY OF ANTINEOPLASTIC CHEMO 06/25/2019 MARCO RIOS, BALBIR Pineda Ot E78.00 PURE HYPERCHOLESTEROLEMIA, UNSPECIFIED 06/25/2019 BALBIR LARA MD Ot E87.2 ACIDOSIS 06/25/2019 BALBIR LARA MD Ot G1 4 POSTPOLIO SYNDROME 06/25/2019 BALBIR LARA MD Ot G40.909 EPILEPSY, UNSP, NOT INTRACTABLE, WITHOUT 06/25/2019 MARCO RIOS, BALBIR Pineda Ot G47.30 SLEEP APNEA, UNSPECIFIED 06/25/2019 BALBIR LARA MD Ot G62.9 POLYNEUROPATHY, UNSPECIFIED 06/25/2019 BALBIR LARA MD Ot I1 0 ESSENTIAL (PRIMARY) HYPERTENSION 06/25/2019 BALBIR LARA MD Ot J18.9 PNEUMONIA, UNSPECIFIED ORGANISM 06/25/2019 BALBIR LARA MD Ot J30.2 OTHER SEASONAL ALLERGIC RHINITIS 06/25/2019 BALBIR LARA MD Ot J44.0 CHR OBSTRUCTIVE PULMON DISEASE WITH (ACU 06/25/2019 MARCO RIOS, BALBIR Pineda Ot J44.1 CHRONIC OBSTRUCTIVE PULMONARY DISEASE W 06/25/2019 MARCO RIOS, BALBIR Pineda Ot 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, STAGE 1 06/25/2019 BALBIR LARA MD Ot L89.152 PRESSURE ULCER OF SACRAL REGION, STAGE 2 06/25/2019 MARCO RIOS, BALBIR Pineda Ot M19.91 PRIMARY OSTEOARTHRITIS, UNSPECIFIED SITE 06/25/2019 MARCO RIOS, BALBIR Pineda Ot R01.1 CARDIAC MURMUR, UNSPECIFIED 06/25/2019 MARCO RIOS, BALBIR Pineda Ot T38.0X5A ADVERSE EFFECT OF GLUCOCORT/SYNTH ANALOG 06/25/2019 BALBIR LARA MD Ot Z85.118 PERSONAL HISTORY OF MALIGNANT NEOPLASM O 06/25/2019 MARCO RIOS, BALBIR Pineda Ot Z85.830 PERSONAL HISTORY OF MALIGNANT NEOPLASM O 06/25/2019 BALBIR LARA MD Ot Z87.891 PERSONAL HISTORY OF NICOTINE DEPENDENCE 06/25/2019 MARCO RIOS, BALBIR Pineda Ot Z92.21 PERSONAL HISTORY OF ANTINEOPLASTIC CHEMO 06/29/2019 GELLENDER DO, AMANDEEP Pineda Ot M47.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 06/29/2019 GELLENDER DO, AMANDEEP Pineda Ot S12.110D ANT DISPL TYPE II DENS FRACTURE, SUBS FO 06/29/2019 GELLENDER DO, AMANDEEP Pineda Ot W19.XXXD UNSPECIFIED FALL, SUBSEQUENT ENCOUNTER 07/06/2019 GELLENDER DOAMANDEEP Ot R56.9 UNSPECIFIED CONVULSIONS 07/06/2019 GELLENDER DO, AMANDEEP Pineda Ot M47.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 07/06/2019 GELLENDER DO, AMANDEEP Pineda Ot S12.110D ANT DISPL TYPE II DENS FRACTURE, SUBS FO 07/06/2019 GELLENDER DO, AMANDEEP Pineda Ot W19.XXXD UNSPECIFIED FALL, SUBSEQUENT ENCOUNTER 07/14/2019 STEPHEN PRICE Ot C34.12 MALIGNANT NEOPLASM OF UPPER LOBE, LEFT B 07/14/2019 STEPHEN PRICE Ot C79.51 SECONDARY MALIGNANT NEOPLASM OF BONE 07/14/2019 STEPHEN PRICE Ot E78.5 HYPERLIPIDEMIA, UNSPECIFIED 07/14/2019 STEPHEN PRICE Ot G40.909 EPILEPSY, UNSP, NOT INTRACTABLE, WITHOUT 07/14/2019 STEPHEN PRICE N Ot J43.9 EMPHYSEMA, UNSPECIFIED 07/14/2019 STEPHEN PRICE Ot Z51.11 ENCOUNTER FOR ANTINEOPLASTIC CHEMOTHERAP 07/14/2019 STEPHEN PRICE Ot Z79.899 OTHER NURSING HOME (CURRENT) DRUG THERAPY 07/14/2019 STEPHEN PRICE Ot Z87.891 PERSONAL HISTORY OF NICOTINE DEPENDENCE 07/14/2019 STEPHEN PRICE N Ot Z92.21 PERSONAL HISTORY OF ANTINEOPLASTIC CHEMO 07/19/2019 HÉCTOR, NINA E TORCH HEATER Ot C34.12 MALIGNANT NEOPLASM OF UPPER LOBE, LEFT B 07/19/2019 HÉCTORIRMA TATUMINE E TORCH HEATER Ot F17.201 NICOTINE DEPENDENCE, UNSPECIFIED, IN REM 07/19/2019 HÉCTOR NINA E TORCH HEATER Ot J18.9 PNEUMONIA, UNSPECIFIED ORGANISM 07/19/2019 HÉCTORIRMA TATUMINE Juli TORCH HEATER Ot J44.1 CHRONIC OBSTRUCTIVE PULMONARY DISEASE W 07/19/2019 HÉCTOR NINA E TORCH HEATER Ot J96.20 ACUTE AND CHR RESP FAILURE, UNSP W HYPOX 07/21/2019 STEPHEN PRICE Ot C34.12 MALIGNANT NEOPLASM OF UPPER LOBE, LEFT B 07/21/2019 STEPHEN PRICE Ot C79.51 SECONDARY MALIGNANT NEOPLASM OF BONE 07/21/2019 STEPHEN PRICE Ot E78.5 HYPERLIPIDEMIA, UNSPECIFIED 07/21/2019 STEPHEN PRICE Ot G40.909 EPILEPSY, UNSP, NOT INTRACTABLE, WITHOUT 07/21/2019 STEPHEN PRICE Ot J43.9 EMPHYSEMA, UNSPECIFIED 07/21/2019 STEPHEN PRICE Ot Z51.11 ENCOUNTER FOR ANTINEOPLASTIC CHEMOTHERAP 07/21/2019 STEPHEN PRICE N Ot Z79.899 OTHER NURSING HOME (CURRENT) DRUG THERAPY 07/21/2019 STEPHEN PRICE Ot Z87.891 PERSONAL HISTORY OF NICOTINE DEPENDENCE 07/21/2019 STEPHEN PRICE N Ot Z92.21 PERSONAL HISTORY OF ANTINEOPLASTIC CHEMO Procedures Code Description [place] [address] OXIMETRY 08/19/2012 11298 OXIMETRY 12/10/2013 [id number] RE SPIRATORY VENTILATION, 24- 96 CONSECUTI 03/09/2017 [id number] EX CISION OF THORAX LYMPHATIC, PERC ENDO 05/21/2017 [id number] EX TRACTION OF L LOW LUNG LOBE, PERC ENDO 05/21/[id number] MCCOY OF RIGHT MIDDLE LUNG LOBE, ENDO 07/23/2018 [id number] EX TIRPATION OF MATTER FROM RIGHT MAIN BR 07/23/2018 [id number] EX TIRPATION OF MATTER FROM LEFT MAIN BRO 07/23/2018 [id number] EX TRACTION OF RIGHT MIDDLE LUNG LOBE, EN 07/23/2018 [id number] RE PAIR SCALP SKIN, EXTERNAL APPROACH 02/18/2019 [id number] SISTANCE WITH RESPIRATORY VENTILATION, 04/04/2019 Results Test [...] . NRG Bacterial blood culture SEE COMMEN [facility] Comprehensive metabolic panel - 03/09/17 16:35 [...] TEXT EXTERNAL SENSITIVITY REPORTED AT 1704, 1 -1-18 NRG QUANTITY OF GROWTH Moderate Growth NRG FREE TEXT ENTRY 2 PLUS NORMAL MAGED NRG Bacterial sputum culture [id number] NR Bacterial susceptibility panel - 7 05:12 [...] culture - 05/20/17 16:35 Bacterial blood culture [facility] Complete blood count (CBC) with [...] in bronchial specimen by aerob e culture [id number] NRG FTX;REPORTABLE SENSITIVITY REPORTED AT 1642, 2 NRG Mycobacterium species detection by organ ism [...] 1555, NR QUANTITY OF GROWTH Abundant Growth NRG FREE TEXT ENTRY 2 PLUS NORMAL MAGED NR Bacterial sputum culture [id number] [facility] Bacterial susceptibility panel - 8 11:30 [...] NRG Blood band neutrophils/100 leukocytes 2 % NR Manual blood lymphocytes/100 leukocytes 6 % NR Manual eosinophils/100 leukocytes in nose 0 % NR Manual blood basophils/100 leukocytes 0 % NR Blood anisocytosis detection by light microscopy S LIGHT [facility] Comprehensive metabolic panel - 09/24/17 03:35 Serum [...] 12:10 ANDREW RESULT POSITIVE; FUNGAL HYPHAE OBSERVED NR Complete blood count (CBC) with automate [...] - 01/26/18 13:35 Bacterial blood culture NG NR Bacterial blood culture - 01/26/18 14:08 Bacterial blood culture NG [facility] Complete blood count (CBC) with automate [...] TYPES PRESENT NRG QUANTITY OF GROWTH Isolated NR Bacterial blood culture [id number] NR Influenza virus A and B antigen detectio n - 04/21/18 15:02 FLU RESULT NEGATIVE FOR INFLUENZA A AND B ANTIGENS BY IA NR Bacterial blood culture - 04/21/18 15:15 Bacterial blood culture NG NR Complete blood count (CBC) with automate [...] culture - 05/15/18 17:02 Bacterial blood culture [facility] Complete blood count (CBC) with [...] culture - 06/10/18 03:42 Bacterial blood culture [facility] Influenza virus A and B antigen detectio n - 06/10/18 03:45 FLU RESULT NEGATIVE FOR INFLUENZA A AND B ANTIGENS BY IA NR Bacterial blood culture - 06/10/18 04:46 Bacterial blood culture [facility] Complete urinalysis with reflex [...] INFLUENZA A AND B ANTIGENS BY IA [facility] Comprehensive metabolic panel - 12/01/18 02:25 Serum [...] INFLUENZA A AND B ANTIGENS BY IA [facility] Complete blood count (CBC) with automate [...] g/dL 3.2-4.5 CALCIUM CORRECTED 8.4 mg/dL 8.5-10.1 Arterial blood gas measurement - 0 05:47 Blood pCO2 59 mm[Hg] 35-45 Blood pO2 84 mm[Hg] 79-93 Arterial blood bicarbonate measurement (moles/volume) 33 mmol/L 23-27 Arterial blood base excess by calculation 7.4 mmol /L -2.5-2.5 Arterial blood oxygen saturation measurement 94 % 94-100 * Inhaled oxygen flow rate 4L NRG Arterial blood pH measurement with patient temperature correction 7.36 7.37-7.43 Arterial blood carbon dioxide, total measurement (mole s/volume) 34.7 mmol/L 21.0-31.0 Body site LEFT RADIAL NRG Assessment of wrist artery patency prior to arterial p uncture YES-POS NRG Setting of ventilation mode NO NR G Measurement of body temperature 36.8 NRG Complete blood count (CBC) with automate d white blood cell (WBC) differential - 06/21/19 05:48 Blood leukocytes automated count (number/volume) 8.3 10*3/uL 4.3-11.0 Blood erythrocytes automated count (number/volume) 3.41 10*6/uL 4.35-5.85 Venous blood hemoglobin measurement (mass/volume) [...] 10.0- 14.5 Automated blood platelet count (count/volume) 413 10*3/uL 130-400 Automated blood platelet mean volume measurement 7.9 [foz_us] 7.4-10.4 Automated blood neutrophils/100 leukocytes 76 % 42-75 Automated blood lymphocytes/100 leukocytes 9 [...] 0.0 10*3/uL 0.0-0.1 Comprehensive metabolic panel - 06/21/19 05:48 Serum or plasma sodium measurement (moles/volume) 132 mmol/L 135-145 Serum or plasma potassium measurement (moles/volume) 4.3 mmol/L 3.6-5.0 Serum or plasma chloride measurement (moles/volume) 92 mmol/L 98-107 Carbon dioxide 31 mmol/L 21-32 Serum or plasma anion gap determination (moles/volume) 9 mmol/L 5-14 Serum or plasma urea nitrogen measurement (mass/volume ) 9 mg/dL 7-18 Serum or plasma creatinine measurement (mass/volume) 1.00 mg/dL 0.60-1.30 Serum or plasma urea nitrogen/creatinine [...] measurement (mass/volume) 3.6 g/dL 3.2-4.5 CALCIUM CORRECTED 8.7 mg/dL 8.5-10.1 Serum or plasma C reactive protein measu rement (mass/volume) - 06/21/19 05:48 Serum or plasma C reactive protein measurement (mass/v olume) 7.24 mg/dL 0.00-0.50 PT panel in platelet poor plasma by coag ulation assay - 06/21/19 05:48 Prothrombin time (PT) in platelet poor plasma by coagu lation assay 14.0 s 12.2-14.7 INR in platelet poor plasma or blood by coagulation as say 1.0 0.8-1.4 Activated partial thromboplastin time (a PTT) in platelet poor plasma bycoagulation assay - 06/21/19 05:48 Activated partial thromboplastin time (a PTT) in platelet poor plasma bycoagulation assay 37 s 24-35 Fibrin D-dimer FEU measurement in platel et poor plasma (mass/volume) - 06/21/19 05:48 Fibrin D-dimer FEU measurement in platelet poor plasma (mass/volume) 1.73 ug/mL 0.00-0.49 Serum iron and total iron binding capaci ty panel - 06/21/19 05:48 TIBC 215 % 280-380 UIBC 200 % 55-450 Serum or plasma iron measurement (mass/volume) 15 % 40-180 Total iron binding capacity and transferrin saturation measurement 7 % 15-50 Serum or plasma ferritin measurement (mass/volume) 59.4 % 32.0-356.0 Blood lactic acid measurement (moles/vol ume) - 06/21/19 05:53 Blood lactic acid measurement (moles/volume) 1.01 mmol/L 0.50-2.00 Bacterial blood culture - 06/21/19 05:53 Bacterial blood culture NG [facility] Influenza virus A and B antigen detectio n - 06/21/19 06:00 FLU RESULT NEGATIVE FOR INFLUENZA A AND B ANTIGENS BY IA [facility] Bacterial blood culture - 06/21/19 06:14 Bacterial blood culture NG [facility] Blood lactic acid measurement (moles/vol ume) - 06/21/19 10:35 Blood lactic acid measurement (moles/volume) 0.96 mmol/L 0.50-2.00 Gram stain microscopy - 06/21/19 19:42 Gram stain microscopy Rare Gram positive bacilli NRG Bacteria identification in wound by cult ure - 06/21/19 19:42 Bacteria identification in wound by culture [id number] NRG QUANTITY OF GROWTH . NRG SUSCEPTIBILITY NO BETA STREP, STAPH AUREUS, OR NRG MRSA SCREEN PSEUDOMONAS ISOLATED NRG Complete blood count (CBC) with automate d white blood cell (WBC) differential - 06/22/19 03:02 Blood leukocytes automated count (number/volume) 7.8 10*3/uL 4.3-11.0 Blood erythrocytes automated count (number/volume) [...] 10.0- 14.5 Automated blood platelet count (count/volume) 415 10*3/uL 130-400 Automated blood platelet mean volume measurement 8.0 [foz_us] 7.4-10.4 Automated blood neutrophils/100 leukocytes 92 % 42-75 Automated blood lymphocytes/100 leukocytes 4 % 12-44 Blood monocytes/100 leukocytes 4 % 0-12 Automated blood eosinophils/100 leukocytes 0 % 0-10 Automated blood basophils/100 leukocytes 0 % 0-10 Blood neutrophils automated count (number/volume) 7.2 10*3 1.8-7.8 Blood lymphocytes automated count (number/volume) 0.3 10*3 1.0-4.0 Blood monocytes automated count (number/volume) 0. 3 10*3 0.0-1.0 Automated eosinophil count 0.0 10*3/uL 0 .0-0.3 Automated blood basophil count (count/volume) 0.0 10*3/uL 0.0-0.1 Manual absolute plasma cell count - 05/30 07/18 03:02 Blood monocytes/100 leukocytes 3 % NRG Manual blood segmented neutrophils/100 leukocytes 88 % NRG Blood band neutrophils/100 leukocytes 3 % NRG Manual blood lymphocytes/100 leukocytes 6 % NRG Blood hypochromia detection by light microscopy [facility] Comprehensive metabolic panel - 06/22/19 03:02 Serum or plasma sodium measurement (moles/volume) 131 mmol/L 135-145 Serum or plasma potassium measurement (moles/volume) 4.8 mmol/L 3.6-5.0 Serum or plasma chloride measurement (moles/volume) 94 mmol/L 98-107 Carbon dioxide 27 mmol/L 21-32 [...] NRG Serum or plasma glucose measurement (mass/volume) 132 mg/dL 70-105 Serum or plasma calcium measurement (mass/volume) 9.2 mg/dL 8.5-10.1 Serum or plasma total bilirubin measurement (mass/volu me) 0.3 mg/dL 0.1-1.0 Serum or plasma alkaline phosphatase mick surement (enzymatic activity/volume) 158 U/L 40-136 Serum or plasma aspartate aminotransfera se measurement (enzymatic activity/volume) 12 U/L 5-34 Serum or plasma alanine aminotransferase measurement (enzymatic activity/volume) 14 U/L 0-55 Serum or plasma protein measurement (mass/volume) 7.1 g/dL 6.4-8.2 Serum or plasma albumin measurement (mass/volume) 3.8 g/dL 3.2-4.5 CALCIUM CORRECTED 9.4 mg/dL 8.5-10.1 Complete blood count (CBC) with automate d white blood cell (WBC) differential - 06/23/19 06:06 Blood leukocytes automated count (number/volume) 7.9 10*3/uL 4.3-11.0 Blood erythrocytes automated count (number/volume) 3.65 10*6/uL 4.35-5.85 Venous blood hemoglobin measurement (mass/volume) 10.1 g/dL 13.3-17.7 Blood hematocrit (volume fraction) 31 % 40-54 Automated erythrocyte mean corpuscular volume 85 [ foz_us] 80-99 Automated erythrocyte mean corpuscular h emoglobin (mass per erythrocyte) 28 pg 25-34 Automated erythrocyte mean corpuscular h emoglobin concentration measurement (mass/volume) 33 g/dL 32-36 Automated erythrocyte distribution width ratio 14. 6 % 10.0- 14.5 Automated blood platelet count (count/volume) 438 10*3/uL 130-400 Automated blood platelet mean volume measurement 8.1 [foz_us] 7.4-10.4 Automated blood neutrophils/100 leukocytes 89 [...] 0.0 10*3/uL 0.0-0.1 Comprehensive metabolic panel - 06/23/19 06:06 Serum or plasma sodium measurement (moles/volume) 128 mmol/L 135-145 Serum or plasma potassium measurement (moles/volume) 4.5 mmol/L 3.6-5.0 Serum or plasma chloride measurement (moles/volume) 91 mmol/L 98-107 Carbon dioxide 27 mmol/L 21-32 [...] NRG Serum or plasma glucose measurement (mass/volume) 128 mg/dL 70-105 Serum or plasma calcium measurement [...] g/dL 3.2-4.5 CALCIUM CORRECTED 9.2 mg/dL 8.5-10.1 Complete blood count (CBC) with automate d white blood cell (WBC) differential - 06/24/19 04:40 Blood leukocytes automated count (number/volume) 6.0 10*3/uL 4.3-11.0 Blood erythrocytes automated count (number/volume) 3.38 10*6/uL 4.35-5.85 Venous blood hemoglobin measurement (mass/volume) [...] 10.0- 14.5 Automated blood platelet count (count/volume) 413 10*3/uL 130-400 Automated blood platelet mean volume measurement 8.1 [foz_us] 7.4-10.4 Automated blood neutrophils/100 leukocytes 71 % 42-75 Automated blood lymphocytes/100 leukocytes 12 % 12-44 Blood monocytes/100 leukocytes 17 % 0-12 Automated blood eosinophils/100 leukocytes 0 % 0-10 Automated blood basophils/100 leukocytes 0 % 0-10 Blood neutrophils automated count (number/volume) 4.3 10*3 1.8-7.8 Blood lymphocytes automated count (number/volume) 0.7 10*3 1.0-4.0 Blood monocytes automated count (number/volume) 1. 0 10*3 0.0-1.0 Automated eosinophil count 0.0 10*3/uL 0 .0-0.3 Automated blood basophil count (count/volume) 0.0 10*3/uL 0.0-0.1 Comprehensive metabolic panel - 06/24/19 04:40 Serum or plasma sodium measurement (moles/volume) 132 [...] 0-55 Serum or plasma protein measurement (mass/volume) 6.2 g/dL 6.4-8.2 Serum or plasma albumin measurement (mass/volume) 3.5 g/dL 3.2-4.5 CALCIUM CORRECTED 8.8 mg/dL 8.5-10.1 Encounters ACCT No. Visit Date/Time Discharge Status Pt. Type Provider Facility Loc./Unit Complaint [id number] 12/10/2013 15:08:00 12/10/2013 23:59: 59 CLS Outpatient DIPESH MIKE APRN [id number] 08/19/2012 13:16:00 Document Registration [id number] 07/15/2019 09:13:00 23:59:59 CLS Outpatient STEPHEN PRICE [facility] ONC [id number] 06/28/2019 11:30:00 23:59:59 CLS Preadmit SHARON JEONG MD [facility] WOUNDCARE [id number] 06/21/2019 09:11:00 11:50:00 DIS Outpatient BALBIR LARA MD [facility] 4TH COPD, SACRAL PRESSURE ULCER [id number] 06/04/2019 10:35:00 00:01:00 DIS Outpatient STEPHEN PRICE Flavio [place] [facility] ONC [id number] 06/08/2019 19:30:00 23:59:59 CLS Inpatient AMADNEEP GENAO DO [facility] 4TH L TIB/FIB FRACT URE [id number] 06/05/2019 02:11:00 14:00:00 DIS Inpatient ORENDER MYRNA LASSITER [facility] 4TH COPD EXACERBATI ON [id number] 05/28/2019 11:16:00 23:59:59 CLS Outpatient SIVA RESENDIZP [facility] RAD HEADACHE,FALLS [id number] 05/25/2019 15:37:00 23:59:59 CLS Outpatient SIVA RESENDIZ 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 [facility] 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 [id number] 05/17/2019 20:00:00 15:30:00 DIS Inpatient AMANDEEP GENAO DO [facility] 4TH COPD W EXACERBA TION [id number] 04/04/2019 07:34:00 10:15:00 DIS Inpatient AMANDEEP GENAO DO [facility] 4TH RLL PNEUMONIA, RESP DISTRESS [id number] 03/19/2019 13:03:00 23:59:59 CLS Preadmit NINA ANAYA APRN [facility] RAD CHRONIC BRONCHITIS,COPD,PNEUMONIA,LUNG MASS,ASTHMA [id number] 03/15/2019 11:52:00 23:59:59 CLS Outpatient NINA ANAYA APRN [facility] RAD CHRONIC BRONCHITIS,PNEUMONIA,LUNG MASS,ASTHMA [id number] 02/18/2019 14:30:00 16:28:00 DIS Inpatient AMANDEEP GENAO DO [facility] 4TH PNEUMONIA;WEAKN ESS [id number] 02/11/2019 13:03:00 00:01:00 DIS Outpatient STEPHEN PRICE V [facility] ONC [id number] 02/15/2019 07:55:00 23:59:59 CLS Outpatient AMANDEEP GENAO DO [facility] RAD FALL,NECK PAIN [id number] 02/03/2019 16:14:00 23:59:59 CLS Outpatient AMANDEEP GENAO DO [facility] RAD FALL [id number] 01/18/2019 13:49:00 15:24:00 DIS Emergency FAVIAN COWART [facility] ER SOA [id number] 01/11/2019 12:07:00 23:59:59 CLS Outpatient SIVA RESENDIZ 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 [facility] CARD NON SMALL CELL LUNG CA [id number] 01/06/2019 13:33:00 23:59:59 CLS Outpatient AMANDEEP GENAO DO [facility] RAD FELL,HURT L KYLE ULDER [id number] 12/01/2018 02:02:00 05:05:00 DIS Emergency STEFAN HERNANDEZ MD [facility] ER SOB [id number] 11/25/2018 15:53:00 18:11:00 DIS Emergency FAVIAN COWART [facility] ER CONGESTION, COUGH [id number] 11/17/2018 15:42:00 23:59:59 CLS Outpatient JOSEDER AMANDEEP LASSITER [facility] LAB SEIZURE [id number] 10/22/2018 13:30:00 00:01:00 DIS Outpatient STEPHEN PRICE [facility] ONC [id number] 10/05/2018 03:11:00 05:43:00 DIS Emergency STEFAN HERNANDEZ MD [facility] ER SOB [id number] 09/14/2018 08:31:00 23:59:59 CLS Outpatient HÉCTOR NINARUSTY Bustos APRN [facility] RAD LUNG MASS,PNEUM ONIA [id number] 09/04/2018 18:22:00 12:14:00 DIS Inpatient AMANDEEP GENAO DO [facility] 4TH COPD EXACERBATI ON,AMS [id number] 09/04/2018 07:22:00 09:42:00 DIS Emergency MARY RIOS, STEFAN Zuniga [facility] ER FALL [id number] 08/12/2018 17:27:00 19:01:00 DIS Emergency NESTOR AVILEZ [facility] ER PAIN BEHIND LEFT EAR, T ROUBLE WALKING [id number] 07/20/2018 13:16:00 00:01:00 DIS Outpatient STEPHEN PRICE [facility] ONC [id number] 07/22/2018 00:00:00 13:50:00 DIS Inpatient [facility]ANDEEP GE[facility] [facility] PNEUMONIA;LUNG CANCER ON CHEMO;COPD/ [id number] 07/14/2018 10:42:00 23:59:59 CLS Outpatient STEPHEN PRICE [facility] CARD NON SMALL CELL LUNG CA [id number] 07/02/2018 14:31:00 23:59:59 CLS Outpatient RANI PACHECO DO Via [facility] RAD NON SMALL CELL LUNG CAN CER [id number] 06/24/2018 20:23:00 14:26:00 DIS Inpatient AMANDEEP GENAO DO Via [facility] 4TH RLL PNA [id number] 06/22/2018 14:51:00 23:59:59 CLS Outpatient SIVA RESENDIZ 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 [facility] 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 [id number] 06/10/2018 04:35:00 15:30:00 DIS Inpatient AMANDEEP GENAO DO [facility] 4TH RLL PNEUMONIA C OPD EXACERBATION [id number] 05/15/2018 13:27:00 14:15:00 DIS Inpatient JAMIR ELLISON DO [facility] 4TH NEUTROPENIA,PNEUMONIA,H YPONATREMIA [id number] 05/14/2018 14:53:00 23:59:59 CLS Outpatient AMANDEEP GENAO DO [facility] RAD COUGH [id number] 05/12/2018 15:17:00 23:59:59 CLS Outpatient AMANDEEP GENAO DO [facility] RAD FELL AND HURT R IGHT SHOULDER [id number] 05/05/2018 11:59:00 23:59:59 CLS Outpatient SIVA RESENDIZ [facility] CARD NON SMALL CELL LUNG CA [id number] 04/21/2018 16:40:00 16:35:00 DIS Inpatient AMANDEEP GENAO DO [facility] 4TH COPD,EPILEPSY,L EFT LOWER LOBE PNEUM;LUNG CA [id number] 03/30/2018 13:59:00 00:01:00 DIS Outpatient DEESTEPHEN V ia [facility] ONC [id number] 03/24/2018 22:15:00 10:42:00 DIS Inpatient AMANDEEP GENAO DO [facility] 4TH SEIZURE DISORDER,GENERALIZED WEAKNESS,META LUNG CA [id number] 03/16/2018 20:46:00 11:22:00 DIS Inpatient AMANDEEP GENAO DO [facility] 4TH ORTHOSTATIC HYPOTENSION,HYPONATREMIA [id number] 03/09/2018 13:48:00 14:30:00 DIS Inpatient AMANDEEP GENAO DO Miriam [facility] 4TH WEAKNESS, C2 FR ACTURE [id number] 02/10/2018 12:15:00 23:59:59 CLS Outpatient SIVA RESENDIZ [facility] CARD NON SMALL CELL LUNG CA [id number] 01/26/2018 15:30:00 018 13:15:00 DIS Inpatient BROOKEAMANDEEP SAUCEDO DO [facility] 4TH PNENOMONIA,LUNG CANCER [id number] 01/19/2018 16:00:00 23:59:59 CLS Outpatient CHADWICK AMANDEEP LASSITER [facility] RAD TRAUMA TO NECK [id number] 01/13/2018 12:15:00 23:59:59 CLS Preadmit NINA ANAYA APRN [facility] RAD PNEUMONIA,NON-S MALL CELL LUNG CANCER [id number] 01/08/2018 14:06:00 23:59:59 CLS Outpatient SIVA RESENDIZ [facility] RAD [id number] 12/26/2017 13:12:00 018 14:23:00 DIS Outpatient STEPHEN PRICE V ia [facility] ONC [id number] 12/24/2017 08:01:00 018 09:47:00 DIS Outpatient KURT MOHR MD Via [facility] CATARACT [id number] 12/22/2017 05:39:00 018 14:34:00 DIS Outpatient KURT MOHR MD [facility] PREOP CATARACT [id number] 12/12/2017 10:20:00 018 12:10:00 DIS Outpatient KURT MOHR MD [facility] CATARACT LEFT EYE [id number] 12/10/2017 06:22:00 018 14:11:00 DIS Outpatient KURT MOHR MD [facility] PREOP CATARACT LEFT EYE [id number] 12/04/2017 09:11:00 018 13:15:00 DIS Inpatient GELLENDER DO, AMANDEEP A [facility] 4TH COPD ACUTE EXAC ERBATION [id number] 11/14/2017 20:45:00 018 14:28:00 DIS Inpatient JAMIR ELLISON DO [facility] 4TH RLL PNEUMONIA,ORTHOSTAT IC HYPOTENSION,HX LUNG CA [id number] 10/30/2017 11:00:00 018 23:59:59 CLS Outpatient SIVA RESENDIZ [facility] CARD NON-SMALL CELL LUNG CANCER,SECONDARY CANCER OF [place]ON [id number] 10/07/2017 12:07:00 018 23:59:59 CLS Outpatient AMANDEEP GENAO DO [facility] LAB TOENAIL FUNGUS [id number] 09/18/2017 13:18:00 018 00:01:00 DIS Outpatient STEPHEN PRICE V [facility] ONC [id number] 09/24/2017 04:46:00 018 15:52:00 DIS Inpatient AMANDEEP GENAO DO [facility] 4TH PNEUMONIA,METAS TATIC LUNG CANCER ON CHEMO,COPD [id number] 09/04/2017 11:24:00 018 23:59:59 CLS Outpatient SIVA RESENDIZ [facility] LAB NON SMALL CELL LUNG CANCER [id number] 08/28/2017 17:10:00 23:59:59 CLS Outpatient NINA ANAYA APRN [facility] RAD LEG PAIN,LEG SW ELLING,LUNG MASS [id number] 08/05/2017 15:56:00 018 12:55:00 DIS Inpatient AMANDEEP GENAO DO Via [facility] 4TH COPD ACUTE EXACERBATION;RESP DISTRESS [id number] 08/05/2017 10:11:00 018 15:17:00 DIS Emergency VANESSA GUTHRIE MD [facility] ER SOB [id number] 07/29/2017 14:37:00 018 13:31:00 DIS Inpatient CHADWICK LASSITERAMANDEEP Miriam [facility] 4TH PNEUMONIA,COPD EXACERBATION [id number] 07/28/2017 12:13:00 018 23:59:59 CLS Outpatient CHADWICK LASSITERAMANDEEP [facility] RAD COUGH R05,CONGE STION R09.81 [id number] 07/24/2017 10:27:00 018 14:30:00 DIS Outpatient CÉSAR NEGRETE DO Via [facility] LUNG CANCER [id number] 07/23/2017 14:46:00 018 15:11:00 DIS Outpatient CÉSAR NEGRETE DO [facility] PREOP LUNG CA [id number] 07/09/2017 08:57:00 018 14:25:00 DIS Outpatient STEPHEN PRICE [facility] RAD R93.7 ABNORMAL MRI SCAN , BONE [id number] 07/03/2017 08:40:00 018 23:59:59 CLS Outpatient STEPHEN PRICE [facility] RAD R91.1 LUNG NODULE [id number] 07/02/2017 08:26:00 018 23:59:59 CLS Outpatient RANI PACHECO DO [facility] RAD ABN PET OF LUNG CA [id number] 06/17/2017 09:08:00 018 23:59:59 CLS Outpatient RANI PACHECO DO [facility] RAD LUNG NODULE,LUNG MASS,T OBACCO USER [id number] 06/03/2017 09:00:00 018 23:59:59 CLS Preadmit AMANDEEP GENAO DO [facility] RAD SPICULATED NODU LE IN LT UPPER LOBE OF LUNG [id number] 05/20/2017 16:28:00 018 14:48:00 DIS Inpatient AMANDEEP GENAO DO [facility] 4TH PNEUMONIA BILAT LL,MASS L UPPER LOBE,FATIGUE,PAST- [id number] 04/30/2017 19:42:00 018 23:27:00 DIS Emergency NOREEN CHÁVEZ TORCH HEATER [facility] ER NOSE BLEED [id number] 04/30/2017 15:18:00 018 18:22:00 DIS Emergency NOREEN CHÁVEZ TORCH HEATER Via [facility] ER NOSE BLEED [id number] 04/14/2017 14:15:00 018 23:59:59 CLS Preadmit NINA ANAYA TORCH HEATER [facility] PULM ASTHMA [id number] 04/06/2017 11:15:00 018 14:00:00 DIS Inpatient AMANDEEP GENAO DO [facility] 4TH BILAT LOWER LOB E PNA, COPD [id number] 04/03/2017 10:09:00 018 23:59:59 CLS Preadmit NINA ANAYA APRN [facility] RT ASTHMA [id number] 04/03/2017 10:07:00 018 23:59:59 CLS Preadmit NINA ANAYA APRN [facility] RAD TOBACCO USER [id number] 03/30/2017 07:03:00 018 12:25:00 DIS Inpatient AMANDEEP GENAO DO [facility] 4TH RESP, DISTRESS, COPD EXACERBATION [id number] 03/09/2017 18:31:00 017 14:50:00 DIS Inpatient AMANDEEP GENAO DO [facility] 4TH SEVERE SEPSIS,R EPIRATORY FAILURE,PNEUMONIA [id number] 03/05/2017 10:54:00 017 13:24:00 DIS Emergency IRAIDA PRATT MD Via [facility] ER SKIN ABRASIONS ON NOSE AND LEFT HAND--FALL [id number] 02/28/2017 13:26:00 017 14:45:00 DIS Inpatient AMANDEEP GENAO DO [facility] 4TH PNEUMONIA,COPD EXACERBATION [id number] 02/04/2017 15:03:00 23:59:59 CLS Outpatient AMANDEEP GENAO DO [facility] LAB SOB COPD WEIGHT LOSS [id number] 01/14/2017 12:26:00 23:59:59 CLS Outpatient AMANDEEP GENAO DO [facility] RAD FELL-HIT HEAD [id number] 12/19/2016 12:24:00 23:59:59 CLS Outpatient AMANDEEP GENAO DO [facility] RAD COPD,COUGH [id number] 09/10/2016 13:39:00 23:59:59 CLS Outpatient AMANDEEP GENAO DO [facility] LAB SEIZURE [id number] 08/20/2016 10:59:00 23:59:59 CLS Outpatient AMANDEEP GENAO DO [facility] LAB SEIZURE COPD [id number] 02/28/2016 13:20:00 23:59:59 CLS Outpatient AMANDEEP GENAO DO [facility] RAD WEIGHT LOSS [id number] 02/21/2016 09:42:00 23:59:59 CLS Outpatient AMANDEEP GENAO DO [facility] 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,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 [id number] 02/19/2016 16:00:00 23:59:59 CLS Outpatient AMANDEEP GENAO DO [facility] RAD RECENT 20LB [place] GHT LOSS [id number] 12/13/2015 16:15:00 23:59:59 CLS Outpatient AMANDEEP GENAO DO [facility] LAB SEIZURE [id number] 11/20/2015 07:17:00 09:32:00 DIS Emergency MARY RIOS, STEFAN Zuniga [facility] ER SEIZURE [id number] 10/24/2015 13:47:00 15:18:00 DIS Emergency NOREEN CHÁVEZ APRN [facility] ER LEFT EAR LAC [id number] 08/10/2015 16:11:00 12:30:00 DIS Inpatient AMANDEEP GENAO DO [facility] 4TH COPD EXACERBATI ON [id number] 07/09/2015 13:22:00 23:59:59 CLS Outpatient AMANDEEP GENAO DO [facility] LAB HYPERLIPIDEMIA [id number] 06/13/2015 13:09:00 11:40:00 DIS Inpatient AMANDEEP GENAO DO [facility] 4TH COPD EXACERBATI ON HYPONATREMIA [id number] 05/30/2015 12:53:00 23:59:59 CLS Outpatient AMANDEEP GENAO DO [facility] LAB SEIZURES,HYPERLIPIDEMIA,PAIN IN L FOOT,HX OF FX [id number] 03/11/2015 16:23:00 11:36:00 DIS Inpatient AMANDEEP GENAO DO [facility] 4TH PNEUMONIA,HYPOXIA,SEIZURE,COPD EXAC [id number] 11/08/2014 12:06:00 23:59:59 CLS Outpatient AMANDEEP GENAO DO [facility] LAB [id number] 08/26/2014 11:54:00 13:42:00 DIS Emergency KARIS BONILLA [facility] ER SOA [id number] 04/26/2014 13:15:00 23:59:59 CLS Outpatient AMANDEEP GENAO DO Miriam [facility] LAB SEIZURES,COPD [id number] 03/25/2014 12:57:00 014 23:59:59 CLS Outpatient AMANDEEP GENAO DO Miriam [facility] RAD NUMBNESS TINGLI NG OF R ARM [id number] 11/16/2013 12:35:00 014 23:59:59 CLS Outpatient BROOKESHERYL LASSITER AMANDEEP Miriam [facility] LAB LAMICTAL LEVEL [id number] 11/08/2013 11:10:00 014 11:27:00 DIS Emergency JERRI RIOS, VANESSA Ritchie [facility] ER STAPLE REMOVAL [id number] 11/02/2013 01:47:00 014 03:43:00 DIS Emergency JERRI RIOS, VANESSA Ritchie [facility] ER SEIZURE [id number] 11/01/2013 16:10:00 23:59:59 CLS Outpatient AMANDEEP GENAO DO [facility] RAD LT FOOT SWELLIN G AND HAS BUMP ON 1ST METATARSAL [id number] 10/23/2013 12:37:00 23:59:59 CLS Outpatient YELITZA ANTHONY MD [facility] LAB SEIZURES-PRIMARY [id number] 09/28/2013 12:18:00 23:59:59 CLS Outpatient AMANDEEP GENAO DO [facility] LAB LEFT LEG SWELL [id number] 09/17/2013 01:40:00 03:55:00 DIS Emergency MARIAJOSECELESTE ADAMS DO [facility] ER SEIZURE-FELL [id number] 09/03/2013 12:42:00 23:59:59 CLS Outpatient AMANDEEP GENAO DO [facility] LAB SEIZURE,COPD [id number] 07/20/2013 09:49:00 23:59:59 CLS Outpatient AMANDEEP GENAO DO [facility] RAD WEIGHT LOSS, AB D PAIN [id number] 07/12/2013 16:11:00 23:59:59 CLS Outpatient AMANDEEP GENAO DO [facility] LAB LOST 10 LBS, AB D PAIN [id number] 05/25/2013 16:19:00 014 23:59:59 CLS Outpatient AMANDEEP GENAO DO [facility] RAD COUGH,BRONCHITI S [id number] 02/16/2013 13:23:00 16:25:00 DIS Emergency NOREEN CHÁVEZ TORCH HEATER [facility] ER FELL HURT ANKLE,KNEE, H IP [id number] 12/23/2012 12:55:00 14:12:00 DIS Emergency NOREEN CHÁVEZ TORCH HEATER [facility] ER FALL/LEFT RIB PAIN [id number] 10/29/2012 11:00:00 23:59:59 CLS Outpatient AMANDEEP GENAO DO [facility] RAD COPD [id number] 10/22/2012 16:07:00 23:59:59 CLS Outpatient AMANDEEP GENAO DO [facility] RAD BRONCHITIS,COPD [id number] 12/09/2011 15:35:00 Document Registration [id number] 10/15/2011 11:10:00 Document Registration [id number] 07/23/2011 23:37:00 Document Registration [id number] 05/18/2011 14:31:00 Document Registration [id number] 02/15/2011 13:07:00 Document Registration [id number] 01/28/2011 12:37:00 Document Registration [id number] 06/23/2010 19:15:00 Document Registration [id number] 05/08/2010 14:15:00 Document Registration [id number] 02/14/2010 11:40:00 Document Registration [id number] 12/02/2009 12:42:00 Document Registration
[2019-07-23 00:29] LABS: BASOPHILS % (AUTO) 0 % (0-10); EOSINOPHILS % (AUTO) 0 % (0-10); HEMATOCRIT 35 % (40-54); HEMOGLOBIN 11.5 G/DL (13.3-17.7); LYMPHOCYTES # (AUTO) 0.9 X 10^3 (1.0-4.0); LYMPHOCYTES % (AUTO) 5 % (12-44); MEAN CORPUSCULAR HEMOGLOBIN 28 PG (25-34); MEAN CORPUSCULAR HGB CONC 33 G/DL (32-36); MEAN CORPUSCULAR VOLUME 87 FL (80-99); MEAN PLATELET VOLUME 8.4 FL (7.4-10.4); MONOCYTES % (AUTO) 12 % (0-12); NEUTROPHILS # (AUTO) 13.3 X 10^3 (1.8-7.8); NEUTROPHILS % (AUTO) 82 % (42-75); PLATELET COUNT 309 10^3/uL (130-400); RED CELL DISTRIBUTION WIDTH 15.3 % (10.0-14.5); WHITE BLOOD COUNT 16.1 10^3/uL (4.3-11.0)
--- NOTE | 2019-07-23 00:30 | ED General ---
General Chief Complaint: Respiratory Problems Stated Complaint: SOB Nursing Triage Note: Pt to [facility] via [facility] with c/o SOB. Pt denies any change/new cough. Nursing Sepsis Screen: No Definite Risk Source of Information: Patient Exam Limitations: No Limitations History of Present Illness Date Seen by Provider: Jul 23, 2019 Time Seen by Provider: 00:02 Initial Comments Here by EMS with report of shortness of breath. States he started coughing today. Denies fever. Does admit to shortness of breath. Patient has had frequent visits and admissions for pneumonia and COPD exacerbation as well as fall with fracture of the left foot. Denies any new complaints with the foot although does show obvious deformity with lateral rotation. Denies any significant pain and states he's not walking on that. Was noted to be febrile here at 38.1C. States he was not having any breathing problems until tonight and started cough and ea rlier today. Denies nausea, vomiting or diarrhea. Denies any sick contacts. Stays at home as he is unable to get up due to foot injury. His girlfriend is his parking assistant and she is not sick. Timing/Duration: 12-24 Hours Severity: Moderate Associated Systoms: No Chest Pain; Cough, Fever/Chills, Malaise; No Nausea/Vomiting; Shortness of Air, Weakness Allergies and Home Medications Allergies Coded Allergies: aspirin (Unverified Allergy, Mild, DOES NOT WORK WELL W/ OTHER MEDS, 07/23/19) ibuprofen (Unverified Allergy, Mild, 07/23/19) Home Medications Acetaminophen 500 Mg Tablet, 1,000 MG PO Q8H PRN for PAIN-MILD (1-4), (Reported) Albuterol Sulfate 2.5 Mg/3 Ml Vial.neb, 2.5 MG NEB Q4H PRN for SHORTNESS OF B REATH, (Reported) Albuterol Sulfate 1 Puff Puff, 2 PUFF IH Q6H PRN for SHORTNESS OF BREATH, (Reported) Amlodipine Besylate 5 Mg Tablet, 5 MG PO 0800, (Reported) Atorvastatin Calcium 20 Mg Tablet, 10 MG PO 0300, (Reported) TAKES OF A 20MG ONCE DAILY Azithromycin 250 Mg Tablet, 250 MG PO UD TAKE 2 TABLETS ON DAY ONE THEN TAKE 1 TABLET DAILY FOR FOUR MORE DAYS Prescribed by: BALBIR LARA on 06/25/19 0825 Budesonide/Formoterol Fumarate 10.2 Gm Hfa.aer.ad, 2 PUFF INH BID PRN for WHEN OUT OF ADVAIR, (Reported) Carbamazepine 200 Mg Tablet, 200 MG PO 0300,0800,2300, (Reported) Carbamazepine 200 Mg Tablet, 400 MG PO 1500, (Reported) TAKES 2 (200 MG) TABLETS Cefdinir 300 Mg Capsule, 300 MG PO BID Prescribed by: BALBIR LARA on 06/25/19824 Fluticasone/Salmeterol 12 Gm Hfa.aer.ad, 1 PUFF IH BID, (Reported) Gabapentin 300 Mg Capsule, 300 MG PO 2300, (Reported) Gabapentin 600 Mg Tablet, 600 MG PO 0800,1500, (Reported) Hydrocodone/Acetaminophen 1 Each Tablet, 1 TAB PO Q6H PRN for PAIN-MODERATE (5- 7), (Reported) Lamotrigine 25 Mg Tablet, 25 MG PO 0300, 1500, (Reported) TAKES 25MG @ 0300 25MG + 100MG @1500 Lamotrigine 100 Mg Tablet, 100 MG PO 1500,2300, (Reported) LAST FILLED 03-25-2019 #60/30 DAY SUPPLY PT TAKES 100MG AT 1500 & 2300 Meloxicam 7.5 Mg Tablet, 15 MG PO 1500, (Reported) Mupirocin 22 Gm Oint...g., 1 APPFUL TOP BID PRN for SKIN IRRITATION, (Reported) Omeprazole 20 Mg Capsule.dr, 20 MG PO DAILY PRN for HEARTBURN, (Reported) Phenytoin Sodium Extended 100 Mg Capsule, 200 MG PO 0800,1500, (Reported) TAKES 2 (100 MG) CAPSULES Phenytoin Sodium Extended 100 Mg Capsule, 100 MG PO 2300, (Reported) Prednisone 10 Mg Tab, 10 MG PO DAILY, (Reported) Ropinirole HCl 0.5 Mg Tablet, 0.5 MG PO 1500, (Reported) Tiotropium [place] 1 Inh Aerp, 1 CAP IH 1500, (Reported) Zinc Oxide 28 Gm Oint, 0 GM TOP NEEDED PRN for RASH Prescribed by: BALBIR LARA on 06/25/19824 Patient Home Medication List Home Medication List Reviewed: Yes Review of Systems Review of Systems Constitutional: see HPI; No chills; fever, weakness EENTM: no symptoms reported Respiratory: cough, short of breath, wheezing Cardiovascular: No chest pain, No edema Gastrointestinal: No abdominal pain, No nausea, No vomiting Genitourinary: no symptoms reported Musculoskeletal: No muscle pain, No neck pain Skin: no symptoms reported Psychiatric/Neurological: No Symptoms Reported All Other Systems Reviewed Negative Unless Noted: Yes Past Jmumkgu-Lrfctg-Sfgevc Hx Past Med/Social Hx: Reviewed Nursing Past Med/Soc Hx Patient Social History Alcohol Use: Rarely Uses Recreational Drug Use: Yes (not current, 15 years ago-ETOH and PO drugs) Drug of Choice: HX OF RX DRUG ABUSE, CLAIMS NONE 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 Smoking Status: Current Everyday Smoker Type Used: Cigars, Cigarettes Former Smoker, Quit: Jan 29, 2017 2nd Hand Smoke Exposure: No Recent Foreign Travel: No Contact w/Someone Who Travel: No Recent Infectious Disease Expo: No Recent Hopitalizations: No Immunizations Up To Date Tetanus Booster (TDap): Less than 5yrs PED Vaccines UTD: Yes Date of Influenza Vaccine: Apr 21, 2018 Seasonal Allergies Seasonal Allergies: Yes Past Medical History Surgeries: Yes Eye Surgery, Gallbladder Respiratory: Yes Asthma, Pneumonia, Chronic Bronchitis, Sleep Apnea, COPD Currently Using CPAP: No Currently Using BIPAP: No Cardiac: Yes Heart Murmur, High Cholesterol, Hypertension, Valvular Heart Disease 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) Neuropathy, Seizure Disorder, Vertigo Reproductive Disorders: No Sexually Transmitted Disease: No HIV/AIDS: No Genitourinary: No Gastrointestinal: Yes (CHRONIC NAUSEA/VOMITING) Musculoskeletal: Yes (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 Physical Exam-Suspected Sepsis Physical Exam Vital Signs Vital Signs - First Documented 07/23/19 07/23/19 00:02 01:15 Temp 38.2 Pulse 104 Resp 22 B/P (MAP) 153/103 (120) Pulse Ox 97 O2 Delivery Nasal Cannula O2 Flow Rate 4.00 FiO2 60 Capillary Refill : Less Than 3 Seconds Blood Pressure Mean: 120 Height, Weight, BMI Height: 6'0" Weight: 174lbs. 3.0oz. 79.695604vd; 25.00 BMI Method:Stated General Appearance: WD/WN, Chronically ill, Mild Distress HEENT: PERRL/EOMI, Pharynx Normal Neck: Non Tender, Supple Respiratory: Accessory Muscle Use, Decreased Breath Sounds, Expiration, Wheezing Cardiovascular: No Murmur, Tachycardia Gastrointestinal: Non Tender, Soft Back: Normal Inspection, No CVA Tenderness, No Vertebral Tenderness Extremity: Non Tender, Other (splint to left lower extremity with obvious deformity of the foot laterally rotated. This is how it is splinted. States that he was seen by orthopedics and they're watching it for healing. Last appointment or 6 weeks ago and he is due again but hasn't been able to get out) Neurologic/Psychiatric: Alert, Oriented x3 Skin: normal color, warm/dry Focused Exam Lactate Level 07/23/19 00:09: Lactic Acid Level 0.90 Lactic Acid Level Laboratory Tests Test 07/23/19 00:09 Lactic Acid Level 0.90 MMOL/L (0.50-2.00) Procedures/Interventions Date of ETT Placement: Mar 09, 2017 Time of ETT Placement: 1811 Suture Size: 5-0 Progress/Results/Core Measures Suspected Sepsis Recent Fever Within 48 Hours: Yes Infection Criteria Present: None New/Unexplained Altered Menta: No Sepsis Screen: No Definite Risk SIRS Temperature: Pulse: 104 Respiratory Rate: 22 Laboratory Tests 07/23/19 00:09: White Blood Count 16.1H Blood Pressure 153 /103 Mean: 120 07/23/19 00:09: Lactic Acid Level 0.90 Laboratory Tests 07/23/19 00:09: Creatinine 0.64, INR Comment 0.9, Platelet Count 309, Total Bilirubin 0.2 Results/Orders Lab Results Laboratory Tests Test 07/23/19 00:09 07/23/19 00:22 Range/Units White Blood Count 16.1 H 4.3-11.0 10^3/uL Red Blood Count 4.07 L 4.35-5.85 10^6/uL Hemoglobin 11.5 L 13.3-17.7 G/DL Hematocrit 35 L 40-54 % Mean Corpuscular Volume 87 80-99 FL Mean Corpuscular Hemoglobin 28 25-34 PG Mean Corpuscular Hemoglobin Concent 33 32-36 G/DL Red Cell Distribution Width 15.3 H 10.0-14.5 % Platelet Count 309 130-400 10^3/uL Mean Platelet Volume 8.4 7.4-10.4 FL Neutrophils (%) (Auto) 82 H 42-75 % Lymphocytes (%) (Auto) 5 L 12-44 % Monocytes (%) (Auto) 12 0-12 % Eosinophils (%) (Auto) 0 0-10 % Basophils (%) (Auto) 0 0-10 % Neutrophils # (Auto) 13.3 H 1.8-7.8 X 10^3 Lymphocytes # (Auto) 0.9 L 1.0-4.0 X 10^3 Monocytes # (Auto) 2.0 H 0.0-1.0 X 10^3 Eosinophils # (Auto) 0.0 0.0-0.3 10^3/uL Basophils # (Auto) 0.0 0.0-0.1 10^3/uL Neutrophils % (Manual) 84 % Lymphocytes % (Manual) 5 % Monocytes % (Manual) 11 % Blood Morphology Comment NORMAL Prothrombin Time 12.7 12.2-14.7 SEC INR Comment 0.9 0.8-1.4 Activated Partial Thromboplast Time 39 H 24-35 SEC Sodium Level 128 L 135-145 MMOL/L Potassium Level 4.1 3.6-5.0 MMOL/L Chloride Level 91 L 98-107 MMOL/L Carbon Dioxide Level 26 21-32 MMOL/L Anion Gap 11 5-14 MMOL/L Blood Urea Nitrogen 6 L 7-18 MG/DL Creatinine 0.64 0.60-1.30 MG/DL Estimat Glomerular Filtration Rate > 60 BUN/Creatinine Ratio 9 Glucose Level 121 H 70-105 MG/DL Lactic Acid Level 0.90 0.50-2.00 MMOL/L Calcium Level 8.7 8.5-10.1 MG/DL Corrected Calcium 8.9 8.5-10.1 MG/DL Total Bilirubin 0.2 0.1-1.0 MG/DL Aspartate Amino Transf (AST/SGOT) 14 5-34 U/L Alanine Aminotransferase (ALT/SGPT) 10 0-55 U/L Alkaline Phosphatase 182 H 40-136 U/L Total Protein 6.9 6.4-8.2 GM/DL Albumin 3.7 3.2-4.5 GM/DL Blood Gas Puncture Site RIGHT RADIAL Blood Gas Patient Temperature 38.2 Arterial Blood pH 7.41 7.37-7.43 Arterial Blood Partial Pressure CO2 52 H 35-45 MMHG Arterial Blood Partial Pressure O2 78 L 79-93 MMHG Arterial Blood HCO3 33 H 23-27 MMOL/L Arterial Blood Total CO2 34.8 H 21.0-31.0 MMOL/L Arterial Blood Oxygen Saturation 95 94-100 % Arterial Blood Base Excess 8.2 H -2.5-2.5 MMOL/L Johan Test POSITIVE Blood Gas Ventilator Setting NO Blood Gas Inspired Oxygen 4 Micro Results Microbiology 07/23/19 Influenza Types A,B Antigen (VY) - Final, Complete My Orders Orders - VANESSA GUTHRIE MD Cbc With Automated Diff (07/23/19 00:05) Comprehensive Metabolic Panel (07/23/19 00:05) Blood Culture (07/23/19 00:05) Sputum Culture (07/23/19 00:05) Urinalysis (07/23/19 00:05) Urine Culture (07/23/19 00:05) Protime With Inr (07/23/19 00:05) Partial Thromboplastin Time (07/23/19 00:05) Chest 1 View, Ap/Pa Only (07/23/19 00:05) Ed Iv/Invasive Line Start (07/23/19 00:05) Vital Signs Adult Sepsis Patie Q15M (07/23/19 00:05) O2 (07/23/19 00:05) Remove Rings In Anticipation O (07/23/19 00:05) Lactic Acid Analyzer (07/23/19 00:05) Influenza A And B Antigens (07/23/19 00:05) Albuterol Pre-Mix Nebs (Rt) (Proventil (07/23/19 00:05) Albuterol/Ipra Inhalation Soln (Duoneb I (07/23/19 00:15) Methylprednisolone Sod Succ (Solu-Medrol (07/23/19 00:05) Svn Small Volume Nebulizer (07/23/19 00:05) Svn Small Volume Nebulizer (07/23/19 00:05) Albuterol Pre-Mix Nebs (Rt) (Proventil (07/23/19 00:08) Svn Small Volume Nebulizer (07/23/19 00:08) Arterial Blood Gas (07/23/19 00:10) Manual Differential (07/23/19 00:09) Lactated Ringers (Lr 1000 Ml Iv Solution (07/23/19 01:08) Cefepime Injection (Maxipime Injection) (07/23/19 01:15) Cefepime Injection (Maxipime Injection) (07/23/19 01:05) Water (Sterile) For Injection (Sterile W (07/23/19 01:05) Acetaminophen Tablet (Tylenol Tablet) (07/23/19 01:14) Medications Given in ED Current Medications Medications Dose Ordered Sig/Porfirio Route Start Time Stop Time Status Last Admin Dose Admin Albuterol/ Ipratropium 3 ml ONCE ONCE INH 07/23/19 00:15 07/23/19 00:16 DC 07/23/19 00:27 3 ML Lactated Ringer's 1,000 ml @ 0 mls/hr Q0M ONCE IV 07/23/19 01:08 07/23/19 01:09 DC 07/23/19 01:16 0 MLS/HR Vital Signs/I&O 07/23/19 07/23/19 07/23/19 07/23/19 00:02 00:02 00:30 01:15 Temp 38.2 Pulse 104 Resp 22 B/P (MAP) 153/103 (120) Pulse Ox 97 97 93 O2 Delivery Nasal Cannula Nasal Cannula Nasal Cannula Vapotherm O2 Flow Rate 4.00 4.00 4.00 40.00 FiO2 60 07/23/19 07/23/19 07/23/19 07/23/19 01:20 01:45 01:50 02:09 Temp 38.2 38.2 37.2 37.2 Pulse 99 101 Resp 22 20 B/P (MAP) 125/65 (120) 121/73 (89) Pulse Ox 98 96 O2 Delivery Vapotherm O2 Flow Rate 4.00 07/23/19 02:39 O2 Delivery Vapotherm O2 Flow Rate 40.00 FiO2 60 Capillary Refill : Less Than 3 Seconds Blood Pressure Mean: 120 Progress Note : Progress Note Seen and evaluated. Sepsis protocol initiated. ABG ordered. DuoNeb and albuterol treatments 3 ordered. Monitor patient. 0115: Patient noted to have bilateral lower lobe pneumonia with elevated white count. Lactic acid normal. Sodium and chloride low. We will initiate LR 1 L bolus. Cefepime 2 g IV and acetaminophen 1 g by mouth ordered. I did discuss the case with Dr. Lui, on-call for Dr. Genao. She accepts patient for admission, inpatient status. He has completed the treatments and states he's better although still having some respiratory difficulty. We will initiate Vapotherm and he states that that works very well. Admit, inpatient status to medical surgical floor. Patient agrees to plan. Diagnostic Imaging Diagonstic Imaging: Xray Plain Films/CT/US/NM/MRI: chest Comments Bilateral lower lobe infiltrates on portable chest x-ray. Reviewed: Reviewed by Me Departure Communication (Admissions) Time/Spoke to Admitting Phy: 01:15 Impression Primary Impression: Pneumonia of both lower lobes Qualified Codes: J18.1 - Lobar pneumonia, unspecified organism Additional Impression: Respiratory distress Disposition: ADMITTED INPATIENT Condition: Stable Admissions Decision to Admit Reason: Admit from ER (General) Decision to Admit/Date: Jul 23, 2019 Time/Decision to Admit Time: 01:15 Departure-Patient Inst. Referrals: AMANDEEP GENAO DO (PCP/Family) Primary Care Physician VANESSA GUTHRIE MD Jul 23, 2019 00:30
[2019-07-23 00:40] LABS: INR 0.9 (0.8-1.4); PROTHROMBIN TIME PATIENT 12.7 SEC (12.2-14.7)
[2019-07-23 01:02] LABS: ALANINE AMINOTRANSFERASE 10 U/L (0-55); ALBUMIN 3.7 GM/DL (3.2-4.5); ALKALINE PHOSPHATASE 182 U/L (40-136); BILIRUBIN,TOTAL 0.2 MG/DL (0.1-1.0); BUN/CREATININE RATIO 9; CALCIUM 8.7 MG/DL (8.5-10.1); CARBON DIOXIDE 26 MMOL/L (21-32); CHLORIDE 91 MMOL/L (98-107); CREATININE SERUM 0.64 MG/DL (0.60-1.30); GFR ESTIMATED > 60; GLUCOSE 121 MG/DL (70-105); POTASSIUM 4.1 MMOL/L (3.6-5.0); SODIUM 128 MMOL/L (135-145); TOTAL PROTEIN 6.9 GM/DL (6.4-8.2)
[2019-07-23] MEDS ORDERED: CEFEPIME 2 GM (MAXIPIME) VIAL ONE (01:05)
[2019-07-23] MEDS ORDERED: WATER (STERILE) FOR INJECTION 20 ML ONE (01:05)
[2019-07-23] MEDS ORDERED: LACTATED RINGERS 1,000 ML IV ONE (01:08)
[2019-07-23 01:11] LABS: LYMPHOCYTES % (MANUAL) 5 %; MONOCYTES % (MANUAL) 11 %; NEUTROPHILS % (MANUAL) 84 %; RBC MORPH NORMAL
[2019-07-23 01:13] LABS: ABG BASE EXCESS 8.2 MMOL/L (-2.5-2.5); ABG OXYGEN SATURATION 95 % (94-100); ABG PCO2 52 MMHG (35-45); ABG PH 7.41 (7.37-7.43); ABG PO2 78 MMHG (79-93); ABG TCO2 34.8 MMOL/L (21.0-31.0); ALLENS TEST POSITIVE; INSPIRED O2 4; PATIENT TEMP 38.2; VENTILATOR NO
[2019-07-23] MEDS ORDERED: ACETAMINOPHEN 500 MG TAB (TYLENOL) PO STA (01:14)
[2019-07-23] MEDS ORDERED: CEFEPIME INJECTION 2,000 MG in WATER (STERILE) FOR INJECTION 20 ML IV ONE (01:15)
--- OUTSIDE RECORDS SUMMARY | 2019-07-23 01:39 | XMS REPORT | Clinical Summary ---
Author Author [facility] Organization [facility] Address Unknown Phone Unavailable Care Team Providers Care Brazer Assembler Name Role Phone Efra Valentino MD Unavailable Unavailable Source Comments Some departments are not documenting in the electronic medical record. If you d o not see the information that you expected, contact [facility] of Information in [facility] [employer] Information Management department at [phone] for further assistan ce in locating additional records.[facility] Allergies Comments Active Allergy Reactions Severity Noted [...]
--- NOTE | 2019-07-23 01:50 | NUR ---
CR QUIJANO admitted to room 411-1, with an admitting diagnosis of Bilateral lower lobe pneumonia , on 07/23/19 from ED via cart, accompanied by staff.CR QUIJANO introduced to surroundings, call light, bed controls, phone, TV, temperature control, lights, meal times, smoking policy, visitor policy, side rail policy, bathrooms and showers. Patient Rights given to patient in the handbook.CR QUIJANO verbalizes understanding that [facility] is not responsible for the loss or damage to any personal effects or valuables that are kept in the patients posession during their hospitalization. The following Patient Care Plans were discussed with the patient: Discharge Planning, and Bilateral lower lobe pneumonia. CR QUIJANO verbalizes understanding of Interdisciplinary Patient Education. Patient and/or family were informed about the Rapid Response Team and its purpose.
--- OUTSIDE RECORDS SUMMARY | 2019-07-23 01:53 | XMS REPORT | Continuity of Care Document ---
Author Organization Unknown Address Unknown Phone Unavailable Allergies Active Description Code Type Severity Reaction Onset Reported/Identified Relationship to Patient Clinical Status Yes AMOXILLEN AMOXILLEN Mild N/A 07/17/2008 Yes Penicillins [id number] Drug Aller gy Mild N/A 08/02/2008 Yes aspirin Drug Allergy N/A N/A 12/10/2013 Yes aspirin [id number] Drug Allergy Mild DOES NOT WORK W 10/05/2018 Yes ibuprofen [id number] Drug Allergy Mild N/A 10/05/2018 Medications There [...] CHEMOTHERAP 02/27/1422 STEPHEN PRICE Ot Z79.899 OTHER LONGTERM (CURRENT) DRUG THERAPY 02/27/1422 STEPHEN PRICE Ot [...] 09/17/2013 MARIAJOSE LASSITER CELESTE Erma Ot V06.1 [id number], COMBINED [ 11/02/2013 VANESSA GUTHRIE MD Ot [...] DO, AMANDEEP Pineda Ot 780.79 11/10/2014 GABRIELLE ROIS, YELITZA Marie Ot 780.3 9 11/10/2014 GELLENDER DO, AMANDEEP Pineda Ot 825.25 11/10/2014 GELLENDER DO, AMANDEEP Pineda Ot E928.9 11/10/2014 GELLENDER DO, AMANDEEP Pineda Ot 780.39 11/10/2014 GELLENDER DO, AMANDEEP Pineda Ot 721.0 11/10/2014 GELLENDER DO, AMANDEEP Pineda Ot 496 11/10/2014 GELLENDER DO, AMANDEEP Pineda Ot 780.39 11/10/2014 GELLENDER DO, AMANDEEP Pinead Ot 780.39 11/15/2014 GELLENDER DO, AMANDEEP Pineda [...] 10/24/2015 NOREEN CHÁVEZ APRN Ot Z79.899 OTHER LONGTERM (CURRENT) DRUG THERAPY 10/25/2015 NOREEN CHÁVEZ APRN Ot F17.210 NICOTINE DEPENDENCE, CIGARETTES, UNCOMPL 10/25/2015 CHÁVEZ, PETER J LUMP ROLLER Ot G40.909 EPILEPSY, UNSP, NOT INTRACTABLE, WITHOUT 10/25/2015 NOREEN CÁHVEZ LUMP ROLLER Ot M47.892 OTHER SPONDYLOSIS, CERVICAL REGION 10/25/2015 NOREEN CHÁVEZ LUMP ROLLER Ot R42 DIZZINESS AND GIDDINESS 10/25/2015 NOREEN CHÁVEZ LUMP ROLLER Ot S01.312A LACERATION WITHOUT FOREIGN BODY OF LEFT 10/25/2015 NOREEN CHÁVEZ LUMP ROLLER Ot W01.0XXA FALL SAME LEV FROM SLIP/TRIP W/O STRIKE 10/25/2015 NOREEN CHÁVEZ LUMP ROLLER Ot Y92.[address] IN UNSP NON-INSTITUT (PRIVATE 10/25/2015 NOREEN CHÁVEZ LUMP ROLLER Ot Y99 .8 OTHER EXTERNAL CAUSE STATUS 10/25/2015 NOREEN CHÁVEZ LUMP ROLLER Ot Z23 ENCOUNTER FOR IMMUNIZATION 10/25/2015 NOREEN CHÁVEZ APRN Ot Z79.899 OTHER LONGTERM (CURRENT) DRUG THERAPY 11/01/2015 Ot 272.4 HYPE RLIPIDEMIA NEC/NOS 11/01/2015 Ot 496 [facility] AI RWAY OBSTRUCT NEC 11/01/2015 Ot 780.39 OTH ER CONVULSIONS 11/01/2015 Ot 780.39 OT ER CONVULSIONS 11/01/2015 Ot 272.4 HYPE RLIPIDEMIA NEC/NOS 11/01/2015 Ot 780.39 OTH ER CONVULSIONS 11/01/2015 Ot 496 [facility] AI RWAY OBSTRUCT NEC 11/01/2015 Ot 786.2 COUGH 11/01/2015 Ot 496 [facility] AI RWAY OBSTRUCT NEC 11/01/2015 Ot 786.2 COUGH 11/01/2015 Ot 272.4 HYPE RLIPIDEMIA NEC/NOS 11/01/2015 Ot 780.39 OTH ER CONVULSIONS 11/01/2015 Ot 780.39 OTH ER CONVULSIONS 11/01/2015 Ot 272.4 HYPE RLIPIDEMIA NEC/NOS 11/01/2015 Ot 496 [facility] AI RWAY OBSTRUCT NEC 11/01/2015 Ot 780.39 [...] Ot 780.3 9 OTHER CONVULSIONS 02/28/2016 GELLENDER DOAMNADEEP Ot 825.25 FX METATARSAL-CLOSED 02/28/2016 GELLENDER AMANDEEP [...] PULMONARY DISEASE, U 03/05/2016 GELLENDER DO, AMANDEEP Pinead Ot R63.4 ABNORMAL WEIGHT LOSS 03/05/2016 GELLENDER [...] SPECIFIED DISORDERS OF NOSE AND NA 02/10/2017 BOROKESHERYL LASSITER, AMANDEEP Pineda Ot S99.912A UNSPECIFIED INJURY [...] EPILEPSY, UNSP, NOT INTRACTABLE, WITHOUT 02/24/2017 GELLENDER DOAMANEDEP Ot R06.02 SHORTNESS OF BREATH 02/24/2017 [place] [...] ABRASION OF LEFT HAND, INITIAL ENCOUNTER 03/05/2017 RIAIDA PRATT MD Ot W18.30XA FALL ON SAME [...] PULMONARY DISEASE W 03/14/2017 GELLENDER DO, AMANDEEP Pindea Ot J96.20 ACUTE AND CHR RESP FAILURE, [...] AMANDEEP Pineda Ot Z91.19 PATIENT'S NONCOMPLIANCE W [facility] 04/08/2017 GELLENDER DO, AMANDEEP [...] GELLENDER DOAMANDEEP Ot Z91.19 PATIENT'S NONCOMPLIANCE W [facility] 04/30/2017 NOREEN CHÁVEZ APRN [...] ENCOUNTER 04/30/2017 NOREEN CHÁVEZ APRN Ot Z79.52 RECEIVER/LABORER (CURRENT) USE OF SYSTEMIC STER 04/30/2017 NOREEN [...] EPISTAXIS 04/30/2017 NOREEN CHÁVEZ APRN Ot Z79.52 LONGTERM (CURRENT) USE OF SYSTEMIC STER 04/30/2017 NOREEN [...] ENCOUNTER 05/02/2017 NOREEN CHÁVEZ APRN Ot Z79.52 LONGTERM (CURRENT) USE OF SYSTEMIC STER 05/02/2017 NOREEN [...] EPISTAXIS 05/02/2017 NOREEN CHÁVEZ APRN Ot Z79.52 LONGTERM (CURRENT) USE OF SYSTEMIC STER 05/02/2017 NOREEN [...] NODULE 07/09/2017 STEPHEN PRICE Ot Z79.899 OTHER RECEIVER/LABORER (CURRENT) DRUG THERAPY 07/09/2017 STEPHEN PRICE Ot [...] NODULE 07/09/2017 STEPHEN PRICE Ot Z79.899 OTHER RECEIVER/LABORER (CURRENT) DRUG THERAPY 07/09/2017 STEPHEN PRICE Ot Z87.891 PERSONAL HISTORY OF NICOTINE DEPENDENCE 07/09/2017 RANI PACHECO DO Ot F17.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, UNSPECIFIED, UNCOMP 07/09/2017 RANI PACHECO DO Ot J96. 21 ACUTE AND CHRONIC RESPIRATORY FAILURE [place] 07/09/2017 RANI PACHECO DO Ot R22. 0 LOCALIZED SWELLING, MASS AND LUMP, HEAD 07/09/2017 RNAI PACHECO DO Ot Z99. 81 DEPENDENCE ON [...] 07/15/2017 STEPHEN PRICE N Ot Z79.899 OTHER LONGTERM (CURRENT) DRUG THERAPY 07/15/2017 DEESTEPHEN PATRICIO N [...] PATRICIO N Ot J43.9 EMPHYSEMA, UNSPECIFIED 07/18/2017 STPEHEN PRICE N Ot M89.9 DISORDER OF BONE, UNSPECIFIED 07/18/2017 DEESTEPHEN PATRICIO N Ot R91.1 SOLITARY PULMONARY NODULE 07/18/2017 STEPHEN PRICE N Ot Z79.899 OTHER RECEIVER/LABORER (CURRENT) DRUG THERAPY 07/18/2017 STEPHEN PRICE N [...] 07/24/2017 CÉSAR NEGRETE DO Ot Z79.899 OTHER LONGTERM (CURRENT) DRUG THERAPY 07/24/2017 CÉSAR NEGRETE DO [...] 07/25/2017 CÉSAR NEGRETE DO Ot Z79.899 OTHER RECEIVER/LABORER (CURRENT) DRUG THERAPY 07/25/2017 CÉSAR NEGRETE DO [...] NODULE 07/28/2017 STEPHEN PRICE Ot Z79.899 OTHER LONGTERM (CURRENT) DRUG THERAPY 07/28/2017 STEPHEN PRICE Ot [...] NODULE 07/29/2017 STEPHEN PRICE Ot Z79.899 OTHER LONGTERM (CURRENT) DRUG THERAPY 07/29/2017 STEPHEN PRICE Ot Z87.891 PERSONAL HISTORY OF NICOTINE DEPENDENCE 08/01/2017 STEPHEN PRICE Ot 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 08/01/2017 STEPHEN PRICE Ot R91.1 SOLITARY PULMONARY NODULE 08/01/2017 STEPHEN PRICE Ot Z87.891 PERSONAL HISTORY OF NICOTINE DEPENDENCE 08/01/2017 [facility] AM[facility]EP Pineda Ot C34.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 08/01/2017 [facility] , AMANDEEP Pineda Ot E78.00 PURE HYPERCHOLESTEROLEMIA, UNSPECIFIED 08/01/2017 [facility] , AMANDEEP Pineda Ot G14 POSTPOLIO SYNDROME 08/01/2017 [facility] G40.909 EPILEPSY, UNSP, NOT INTRACTABLE, WITHOUT 08/01/2017 [facility] AMANDEEP LASSITER Ot G47.30 SLEEP APNEA, UNSPECIFIED 08/01/2017 [facility] AMANDEEP LASSITER Ot I10 ESSENTIAL (PRIMARY) HYPERTENSION 08/01/2017 [facility] AMANDEEP LASSITER Ot J18.9 PNEUMONIA, UNSPECIFIED ORGANISM 08/01/2017 AMANDEEP GENAO DO Ot J44.0 CHRONIC OBSTRUCTIVE PULMON DISEASE W ACU 08/01/2017 [facility] AMANDEEP LASSITER Ot J44.1 CHRONIC OBSTRUCTIVE PULMONARY DISEASE W 08/01/2017 [facility] Ot J96.21 ACUTE AND CHRONIC RESPIRATORY FAILURE [place] 08/01/2017 [facility] AMANDEEP LASSITER Ot R09.02 HYPOXEMIA 08/01/2017 [facility] AMANDEEP LASSITER Ot Z87.891 PERSONAL HISTORY OF NICOTINE DEPENDENCE 08/05/2017 VANESSA GUTHRIE MD Ot E78.00 PURE HYPERCHOLESTEROLEMIA, UNSPECIFIED 08/05/2017 VNAESSA GUTHRIE MD Ot G40.909 EPILEPSY, UNSP, NOT INTRACTABLE, WITHOUT 08/05/2017 VANESSA GUTHRIE MD Ot G47.30 SLEEP APNEA, UNSPECIFIED 08/05/2017 VANESSA GUTHRIE MD Ot I10 ESSENTIAL (PRIMARY) HYPERTENSION 08/05/2017 VANESSA GUTHRIE MD Ot J44.1 CHRONIC OBSTRUCTIVE PULMONARY DISEASE W 08/05/2017 VANESSA GUTHRIE MD Ot R06.03 ACUTE RESPIRATORY DISTRESS 08/05/2017 VANESSA GUTHRIE MD Ot Z79.51 LONGTERM (CURRENT) USE OF INHALED STERO 08/05/2017 VANESSA [...] DEPENDENCE ON SUPPLEMENTAL OXYGEN 08/29/2017 NINA ANAYA LUMP ROLLER Ot M79.604 PAIN IN RIGHT LEG 08/29/2017 HÉCTOR NINA Bustos LUMP ROLLER Ot M79.605 PAIN IN LEFT LEG 08/29/2017 IRMA ANAYAINE Juli LUMP ROLLER Ot M79.89 OTHER SPECIFIED SOFT TISSUE DISORDERS 08/29/2017 IRMA ANAYAINE E LUMP ROLLER Ot R91.8 OTHER NONSPECIFIC ABNORMAL FINDING OF DAVID 08/29/2017 NINA ANAYA LUMP ROLLER Ot M79.604 PAIN IN RIGHT LEG 08/29/2017 NINA ANAYA LUMP ROLLER Ot M79.605 PAIN IN LEFT LEG 08/29/2017 HÉCTORNINA TATUM LUMP ROLLER Ot M79.89 OTHER SPECIFIED SOFT TISSUE DISORDERS 08/29/2017 NINA ANAYA LUMP ROLLER Ot R91.8 OTHER NONSPECIFIC ABNORMAL FINDING OF DAVID 09/08/2017 RESENDIZSIVA S FOREST PATHOLOGY TEACHER Ot C34.12 MALIGNANT NEOPLASM OF UPPER LOBE, LEFT B 09/08/2017 RESENDIZSIVA Rodriguez S FOREST PATHOLOGY TEACHER Ot C79.51 SECONDARY MALIGNANT NEOPLASM OF BONE 09/10/2017 RESENDIZ HILBRENDA S FOREST PATHOLOGY TEACHER Ot C34.12 MALIGNANT NEOPLASM OF UPPER LOBE, LEFT B 09/10/2017 RESENDIZSIVA S FOREST PATHOLOGY TEACHER Ot C79.51 SECONDARY MALIGNANT NEOPLASM OF BONE 09/10/2017 NINA ANAYA LUMP ROLLER Ot M79.604 PAIN IN RIGHT LEG 09/10/2017 NINA ANAYA LUMP ROLLER Ot M79.605 PAIN IN LEFT LEG 09/10/2017 NINA ANAYA LUMP ROLLER Ot M79.89 OTHER SPECIFIED SOFT TISSUE DISORDERS 09/10/2017 NINA ANAYA LUMP ROLLER Ot R91.8 OTHER NONSPECIFIC ABNORMAL FINDING OF DAVID 09/11/2017 STEPHEN PRICE Ot E78.5 HYPERLIPIDEMIA, UNSPECIFIED 09/11/2017 STEPHEN PRICE Ot G40.909 EPILEPSY, UNSP, NOT INTRACTABLE, WITHOUT 09/11/2017 STEPHEN PRICE N Ot J43.9 EMPHYSEMA, UNSPECIFIED 09/11/2017 STEPHEN PRICE N Ot M89.9 DISORDER OF BONE, UNSPECIFIED 09/11/2017 STEPHEN PRICE Ot R91.1 SOLITARY PULMONARY NODULE 09/11/2017 STEPHEN PRICE Ot Z79.899 OTHER RECEIVER/LABORER (CURRENT) DRUG THERAPY 09/11/2017 STEPHEN PRICE Ot Z87.891 PERSONAL HISTORY OF NICOTINE DEPENDENCE 09/15/2017 STEPHEN PRICE Ot E78.5 HYPERLIPIDEMIA, UNSPECIFIED 09/15/2017 STEPHEN PRICE Ot G40.909 EPILEPSY, UNSP, NOT INTRACTABLE, WITHOUT 09/15/2017 STEPHEN PRICE Ot J43.9 EMPHYSEMA, UNSPECIFIED 09/15/2017 STEPHEN PRICE Ot M89.9 DISORDER OF BONE, UNSPECIFIED 09/15/2017 STEPHEN PRICE Ot R91.1 SOLITARY PULMONARY NODULE 09/15/2017 STEPHEN PRICE Ot Z79.899 OTHER LONGTERM (CURRENT) DRUG THERAPY 09/15/2017 STEPHEN PRICE Ot Z87.891 PERSONAL HISTORY OF NICOTINE DEPENDENCE 09/17/2017 SIVA RESENDIZ FOREST PATHOLOGY TEACHER Ot C34.12 MALIGNANT NEOPLASM OF UPPER LOBE, LEFT B 09/17/2017 SIVA RESENDIZ FOREST PATHOLOGY TEACHER Ot C79.51 SECONDARY MALIGNANT NEOPLASM OF [...] GELLENDER DO, AMANDEEP Pineda Ot Z79.899 OTHER LONGTERM (CURRENT) DRUG THERAPY 09/24/2017 GELLENDER DO, AMANDEEP [...] GELLENDER DO, AMANDEEP Pineda Ot Z79.899 OTHER LONGTERM (CURRENT) DRUG THERAPY 09/25/2017 GELLENDER DO, AMANDEEP [...] GELLENDER DO, AMANDEEP Pineda Ot Z79.899 OTHER LONGTERM (CURRENT) DRUG THERAPY 09/26/2017 GELLENDER DO, AMANDEEP [...] GELLENDER DO, AMANDEEP Pineda Ot Z79.899 OTHER RECEIVER/LABORER (CURRENT) DRUG THERAPY 09/26/2017 GELLENDER DO, AMANDEEP [...] GELLENDER DO, AMANDEEP Pineda Ot Z79.899 OTHER RECEIVER/LABORER (CURRENT) DRUG THERAPY 09/26/2017 GELLENDER DO, AMANDEEP Pineda Ot Z87.891 PERSONAL HISTORY OF NICOTINE DEPENDENCE 09/26/2017 GELLENDER DO, MAANDEEP Pineda Ot Z99.81 DEPENDENCE ON SUPPLEMENTAL OXYGEN [...] GELLENDER DO, AMANDEEP Pineda Ot Z79.899 OTHER RECEIVER/LABORER (CURRENT) DRUG THERAPY 09/26/2017 GELLENDER DO, AMANDEEP [...] GELLENDER DO, AMANDEEP Pineda Ot Z79.899 OTHER LONGTERM (CURRENT) DRUG THERAPY 09/26/2017 GELLENDER DO, AMANDEEP [...] GELLENDER DO, AMANDEEP Pineda Ot Z79.899 OTHER LONGTERM (CURRENT) DRUG THERAPY 09/27/2017 GELLENDER DO, AMANDEEP [...] GELLENDER DO, AMANDEEP Pineda Ot Z79.899 OTHER LONGTERM (CURRENT) DRUG THERAPY 09/28/2017 GELLENDER DO, AMANDEEP [...] GELLENDER DO, AMANDEEP Pineda Ot Z79.899 OTHER RECEIVER/LABORER (CURRENT) DRUG THERAPY 09/28/2017 GELLENDER DO, AMANDEEP [...] 10/01/2017 DEE, BOBAN N Ot Z79.899 OTHER LONGTERM (CURRENT) DRUG THERAPY 10/01/2017 DEE, BOBAN N [...] 10/02/2017 DEE, BOBAN N Ot Z79.899 OTHER RECEIVER/LABORER (CURRENT) DRUG THERAPY 10/02/2017 DEE, BOBAN N [...] 10/07/2017 DEE, SABASAN N Ot Z79.899 OTHER LONGTERM (CURRENT) DRUG THERAPY 10/07/2017 DEE STEPHEN N [...] NODULE 10/10/2017 DEESTEPHEN N Ot Z79.899 OTHER RECEIVER/LABORER (CURRENT) DRUG THERAPY 10/10/2017 DEESTEPHEN N Ot [...] CHEMOTHERAP 10/13/2017 DEESABASAN N Ot Z79.899 OTHER RECEIVER/LABORER (CURRENT) DRUG THERAPY 10/13/2017 DEESABASAN N Ot [...] UNSP, NOT INTRACTABLE, WITHOUT 11/17/2017 ELLISON DO AJMIR Ot G47.30 SLEEP APNEA, UNSPECIFIED 11/17/2017 SCOT [...] SCOT LASSITER JAMIR Ot Z79.89 9 OTHER LONGTERM (CURRENT) DRUG THERAPY 11/17/2017 SCOT LASSITER JAMIR [...] HYPERTENSION 12/12/2017 KURT MOHR MD Ot Z79.52 LONGTERM (CURRENT) USE OF SYSTEMIC STER 12/12/2017 KURT MOHR MD Ot Z79.899 OTHER RECEIVER/LABORER (CURRENT) DRUG THERAPY 12/12/2017 KURT MOHR MD Ot Z87.891 PERSONAL HISTORY OF NICOTINE DEPENDENCE 12/16/2017 KURT MOHR MD Ot C34.90 MALIGNANT [facility] 12/16/2017 KURT MOHR MD Ot H25.12 AGE-RELATED NUCLEAR CATARACT, LEFT EYE 12/16/2017 KURT MOHR MD Ot I10 ESSENTIAL (PRIMARY) HYPERTENSION 12/16/2017 KURT MOHR MD Ot Z79.52 LONGTERM (CURRENT) USE OF SYSTEMIC STER 12/16/2017 KURT MOHR MD Ot Z79.899 OTHER RECEIVER/LABORER (CURRENT) DRUG THERAPY 12/16/2017 ONUR RIOS, KURT [...] 12/22/2017 STEPHEN PRICE N Ot Z79.899 OTHER LONGTERM (CURRENT) DRUG THERAPY 12/22/2017 STEPHEN PRICE N [...] 12/24/2017 KURT MOHR MD Ot Z79.899 OTHER LONGTERM (CURRENT) DRUG THERAPY 12/25/2017 KURT MOHR MD [...] ONUR RIOS, KURT Newton Ot Z79.899 OTHER RECEIVER/LABORER (CURRENT) DRUG THERAPY 12/25/2017 KURT MOHR MD Ot 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 12/25/2017 KURT MOHR MD Ot E78.00 PURE HYPERCHOLESTEROLEMIA, UNSPECIFIED 12/25/2017 KURT MOHR MD Ot E78 .5 HYPERLIPIDEMIA, UNSPECIFIED 12/25/2017 KURT MOHR MD Ot G40.909 EPILEPSY, UNSP, NOT INTRACTABLE, WITHOUT 12/25/2017 KURT MHOR MD Ot H26 .9 UNSPECIFIED CATARACT 12/25/2017 KURT MOHR MD Ot I10 ESSENTIAL (PRIMARY) HYPERTENSION 12/25/2017 KURT MOHR MD Ot J45.909 UNSPECIFIED ASTHMA, UNCOMPLICATED 12/25/2017 ONUR RIOS, KURT Newton Ot Z79.899 OTHER RECEIVER/LABORER (CURRENT) DRUG THERAPY 12/30/2017 KURT MOHR MD [...] ONUR RIOS, KURT L Ot Z79.899 OTHER RECEIVER/LABORER (CURRENT) DRUG THERAPY 12/31/2017 DEESTEPHEN PATRICIO N [...] 12/31/2017 DEESTEPHEN PATRICIO N Ot Z79.899 OTHER RECEIVER/LABORER (CURRENT) DRUG THERAPY 12/31/2017 DEE BOBAN N [...] 01/08/2018 DEE, BOBAN N Ot Z79.899 OTHER LONGTERM (CURRENT) DRUG THERAPY 01/08/2018 DEE BOBAN N Ot Z87.891 PERSONAL HISTORY OF NICOTINE DEPENDENCE 01/09/2018 SIVA RESENDIZ FOREST PATHOLOGY TEACHER Ot C34.12 MALIGNANT NEOPLASM OF UPPER LOBE, LEFT B 01/22/2018 SIVA RESENDIZ FOREST PATHOLOGY TEACHER Ot C34.12 MALIGNANT NEOPLASM OF UPPER [...] PERSONAL HISTORY OF ANTINEOPLASTIC CHEMO 01/28/2018DER , AMNADEEP Pineda Ot C34.90 MALIGNANT NEOPLASM OF UNSP [...] UNSPECIFIED 01/29/2018 STEPHEN PRICE Ot Z79.899 OTHER RECEIVER/LABORER (CURRENT) DRUG THERAPY 01/29/2018 STEPHEN PRICE Ot [...] Pineda Ot R53.1 WEAKNESS 01/30/2018 GELLENDER DO, AMANEDEP Pineda Ot Z87.891 PERSONAL HISTORY OF NICOTINE [...] G40.909 EPILEPSY, UNSP, NOT INTRACTABLE, WITHOUT 02/17/2018 STEPHNE PRICE Ot J43.9 EMPHYSEMA, UNSPECIFIED 02/17/2018 STEPHEN PRICE Ot Z79.899 OTHER LONGTERM (CURRENT) DRUG THERAPY 02/17/2018 STEPHEN PRICE Ot [...] GELLENDER DO, AMANDEEP Pineda Ot Z79.899 OTHER RECEIVER/LABORER (CURRENT) DRUG THERAPY 03/18/2018 GELLENDER DO, AMANDEEP [...] 03/19/2018 DEESTEPHEN PATRICIO Flavio Ot Z79.899 OTHER LONGTERM (CURRENT) DRUG THERAPY 03/19/2018 DEESTEPHEN PATRICIO Flavio [...] GELLENDER DO, AMANDEEP Pineda Ot Z79.899 OTHER RECEIVER/LABORER (CURRENT) DRUG THERAPY 03/26/2018 GELLENDER DO, AMANDEEP [...] GELLENDER DO, AMANDEEP Pineda Ot Z79.899 OTHER RECEIVER/LABORER (CURRENT) DRUG THERAPY 03/26/2018 GELLENDER DO, AMANDEEP [...] CHEMOTHERAP 03/31/2018 STEPHEN PRICE Ot Z79.899 OTHER LONGTERM (CURRENT) DRUG THERAPY 03/31/2018 STEPHEN PRICE Ot [...] 04/01/2018 DEE, BOBAN N Ot Z79.899 OTHER LONGTERM (CURRENT) DRUG THERAPY 04/01/2018 DEE BOBAN N [...] 04/06/2018 DEE BOBAN N Ot Z79.899 OTHER LONGTERM (CURRENT) DRUG THERAPY 04/06/2018 DEE BOBAN N [...] 04/06/2018 DEE, BOBAN N Ot Z79.899 OTHER RECEIVER/LABORER (CURRENT) DRUG THERAPY 04/06/2018 STEPHEN PRICE Ot [...] UNSPECIFIED 04/06/2018 STEPHEN PRICE Ot Z79.899 OTHER LONGTERM (CURRENT) DRUG THERAPY 04/06/2018 STEPHEN PRICE Ot [...] DO, AMANDEEP Pineda Ot J98.11 ATELECTASIS 04/21/2018 [facility], AMANDEEP Pineda Ot M19.91 PRIMARY OSTEOARTHRITIS, UNSPECIFIED SITE 04/21/2018 [facility], AMANDEEP Pineda Ot N17.9 ACUTE KIDNEY FAILURE, UNSPECIFIED 04/21/2018 [facility] AM[facility]EP Pineda Ot R06.03 ACUTE RESPIRATORY DISTRESS 04/21/2018 [facility], AMANDEEP Pineda Ot R09.02 HYPOXEMIA 04/21/2018 [facility], AMANDEEP Pineda Ot R64 CACHEXIA 04/21/2018 [facility], AMANDEEP Pineda Ot S12.9XXD FRACTURE OF NECK, UNSPECIFIED, SUBSEQUEN 04/21/2018 [facility], AMANDEEP Pineda Ot Z87.891 PERSONAL HISTORY OF NICOTINE DEPENDENCE 04/21/2018 [facility], AMANDEEP Pineda Ot Z99.81 DEPENDENCE ON SUPPLEMENTAL OXYGEN 04/24/2018 [facility], AMANDEEP Pineda Ot 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 04/24/2018 [facility], AMANDEEP Pineda Ot C34.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 04/24/2018 [facility], AMANDEEP Pineda Ot C79.51 SECONDARY MALIGNANT NEOPLASM OF BONE 04/24/2018 [facility], AMANDEEP Pineda Ot E78.00 PURE HYPERCHOLESTEROLEMIA, UNSPECIFIED 04/24/2018 [facility], AMANDEEP Pineda Ot E86.0 DEHYDRATION 04/24/2018 [facility], AMANDEEP Pineda Ot E87.1 HYPO-OSMOLALITY AND HYPONATREMIA 04/24/2018 [facility], AMANDEEP Pineda Ot E87.8 OTH DISORDERS OF ELECTROLYTE AND FLUID B 04/24/2018 [facility], AMANDEEP Pineda Ot G14 POSTPOLIO SYNDROME 04/24/2018 [facility], AMANDEEP Pineda Ot G40.919 EPILEPSY, UNSP, INTRACTABLE, WITHOUT STA 04/24/2018 [facility] AM[facility]DEEP Pineda Ot G47.30 SLEEP APNEA, UNSPECIFIED 04/24/2018 [facility], AMANDEEP Pineda Ot I10 ESSENTIAL (PRIMARY) HYPERTENSION 04/24/2018 [facility], AMANDEEP Pineda Ot I95.9 HYPOTENSION, UNSPECIFIED 04/24/2018 [facility] AMANDEEP Pineda Ot J18.1 LOBAR PNEUMONIA, UNSPECIFIED ORGANISM 04/24/2018 [facility], AMANDEEP Pineda Ot J30.2 OTHER SEASONAL ALLERGIC [...] UNSPECIFIED 04/27/2018 STEPHEN PRICE Ot Z79.899 OTHER LONGTERM (CURRENT) DRUG THERAPY 04/27/2018 STEPHEN PRICE Ot Z87.891 PERSONAL HISTORY OF NICOTINE DEPENDENCE 05/06/2018 SIVA RESENDIZ FOREST PATHOLOGY TEACHER Ot C34.12 MALIGNANT NEOPLASM OF UPPER LOBE, LEFT B 05/06/2018 SIVA RESENDIZ FOREST PATHOLOGY TEACHER Ot C79.51 SECONDARY MALIGNANT NEOPLASM OF BONE 05/07/2018 STEPHEN PRICE Ot C34.12 MALIGNANT NEOPLASM OF UPPER LOBE, LEFT B 05/07/2018 STEPHEN PRICE Ot C79.51 SECONDARY MALIGNANT NEOPLASM OF BONE 05/07/2018 STEPHEN PRICE Ot E78.5 HYPERLIPIDEMIA, UNSPECIFIED 05/07/2018 STEPHEN PRICE Ot G40.909 EPILEPSY, UNSP, NOT INTRACTABLE, WITHOUT 05/07/2018 DEESTEPHEN PATRICIO Flavio Ot J43.9 EMPHYSEMA, UNSPECIFIED 05/07/2018 STEPHEN PRICE Flavio Ot Z79.899 OTHER RECEIVER/LABORER (CURRENT) DRUG THERAPY 05/07/2018 STEPHEN PRICE Flavio [...] 05/11/2018 DEE STEPHEN Flavio Ot Z79.899 OTHER LONGTERM (CURRENT) DRUG THERAPY 05/11/2018 STEPHEN PRICE Flavio [...] Ot I10 ESSENTIAL (PRIMARY) HYPERTENSION 05/19/2018 SCOT LASISTER JAMIR Ot J18.1 LOBAR PNEUMONIA, UNSPECIFIED ORGANISM 05/19/2018 SCOT LASSITER JAMIR Ot J43.9 EMPHYSEMA, UNSPECIFIED 05/19/2018 SCOT LASSITER JAMIR Ot J98.11 ATELECTASIS 05/19/2018 SCOT LASSITER JAMIR Ot M19.91 PRIMARY OSTEOARTHRITIS, UNSPECIFIED SITE 05/19/2018 SCOT LASSITER JAMIR Ot R09.02 HYPOXEMIA 05/19/2018 DYAN ELLISON DOI Ot R11.2 NAUSEA WITH VOMITING, UNSPECIFIED 05/19/2018 SCOT LASSITER JAMIR Ot R53.1 WEAKNESS 05/19/2018 SOCT LASSITER JAMIR Ot S12.9X XD FRACTURE OF [...] CHEMOTHERAP 05/25/2018 STEPHEN PRICE Ot Z79.899 OTHER RECEIVER/LABORER (CURRENT) DRUG THERAPY 05/25/2018 STEPHEN PRICE Ot Z87.891 PERSONAL HISTORY OF NICOTINE DEPENDENCE 05/25/2018 SIVA RESENDIZ [employer] PATHOLOGY TEACHER Ot C34.12 MALIGNANT NEOPLASM OF UPPER LOBE, LEFT B 05/25/2018 SIVA [employer] PATHOLOGY TEACHER Ot C79.51 SECONDARY MALIGNANT NEOPLASM OF [...] Pineda Ot I25.10 ATHSCL HEART DISEASE OF [place] CORONARY 06/13/2018 GELLENDER DO, AMANDEEP Pineda Ot J18.1 LOBAR PNEUMONIA, UNSPECIFIED ORGANISM 06/13/2018 GELLENDER DO, AMANDEEP Pineda Ot J44.0 CHRONIC OBSTRUCTIVE PULMON DISEASE W ACU 06/13/2018 GELLENDER DO, AMANEDEP Pineda Ot J44.1 CHRONIC OBSTRUCTIVE PULMONARY DISEASE W 06/13/2018 GELLENDER DO, AMANDEEP Pineda Ot J98.11 ATELECTASIS 06/13/2018 GELLENDER DO, AMANDEEP Pineda Ot M19.91 PRIMARY OSTEOARTHRITIS, UNSPECIFIED SITE 06/13/2018 GELLENDER DO, AMANDEEP Pineda Ot R09.02 HYPOXEMIA 06/13/2018 GELLENDER DO, AMANDEEP Pineda Ot T45.1X5A ADVERSE EFFECT OF ANTINEOPLASTIC AND IMM 06/13/2018 GELLENDER , AMANDEEP Pineda Ot Z87.891 PERSONAL HISTORY OF NICOTINE DEPENDENCE 06/13/2018 [facility] , AMANDEEP Pineda Ot Z99.81 DEPENDENCE ON SUPPLEMENTAL OXYGEN 06/22/2018 [facility] Pineda Ot R56.9 UNSPECIFIED CONVULSIONS 06/22/2018 [facility] DO, AMANDEEP Pineda Ot F17.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, UNSPECIFIED, UNCOMP 06/22/2018 GELLENDER DO, AMANDEEP Pineda Ot J44.9 CHRONIC OBSTRUCTIVE PULMONARY DISEASE, U 06/22/2018 GELLENDER DO, AMANDEEP Pineda Ot R63.4 ABNORMAL WEIGHT LOSS 06/22/2018 [facility] Pineda Ot J44.9 CHRONIC OBSTRUCTIVE PULMONARY DISEASE, U 06/22/2018 GELLENDER DO, AMANDEEP Pineda Ot R63.4 ABNORMAL WEIGHT LOSS 06/22/2018 GELLENDER DO, AMANDEEP Pineda Ot R63.4 ABNORMAL WEIGHT LOSS 06/22/2018 [facility] AM[facility]EP Pineda Ot G40.909 [...] SWELLING, MASS AND LUMP, HEAD 06/22/2018 RANI PAHCECO DO Ot Z99. 81 DEPENDENCE ON SUPPLEMENTAL [...] ABNORMAL FINDING OF DAVID 06/22/2018 SIVA [employer] PATH[employer] TEACHER Ot C34.12 MALIGNANT NEOPLASM OF UPPER LOBE, LEFT B 06/22/2018 SIVA [employer] PATH[employer]Y TEACHER Ot C79.51 SECONDARY MALIGNANT NEOPLASM OF BONE 06/22/2018 AMANDEEP GENAO DO Ot B35.1 TINEA UNGUIUM 06/22/2018 SIVA [employer] PATH[employer] TEACHER Ot C34.12 MALIGNANT NEOPLASM OF UPPER LOBE, LEFT B 06/22/2018 SIVA [employer] PATHOLOGY TEACHER Ot C79.51 SECONDARY MALIGNANT NEOPLASM OF BONE 06/22/2018 SIVA [employer] PATHOLOGY TEACHER Ot C34.12 MALIGNANT NEOPLASM OF UPPER LOBE, LEFT B 06/22/2018 SIVA RESENDIZP Ot C34.12 MALIGNANT NEOPLASM OF UPPER LOBE, LEFT B 06/22/2018 SIVA [employer] PATH[employer] TEACHER Ot C79.51 SECONDARY MALIGNANT NEOPLASM OF BONE 06/22/2018 AMANDEEP GENAO DO Ot M43.12 SPONDYLOLISTHESIS, CERVICAL REGION 06/22/2018 [facility] DO Ot M47.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 06/22/2018 [facility] AM[facility]EP LASSITER Ot S19.9XXA UNSPECIFIED [...] CHEMOTHERAP 06/22/2018 STEPHEN PRICE Ot Z79.899 OTHER RECEIVER/LABORER (CURRENT) DRUG THERAPY 06/22/2018 STEPHEN PRICE Ot Z87.891 PERSONAL HISTORY OF NICOTINE DEPENDENCE 06/22/2018 SIVA [employer] PATHOLOGY TEACHER Ot C34.12 MALIGNANT NEOPLASM OF UPPER [...] Pineda Ot G47.30 SLEEP APNEA, UNSPECIFIED 06/25/2018 [facility], AMANDEEP Pineda Ot G62.9 POLYNEUROPATHY, UNSPECIFIED 06/25/2018 [facility] DO, AMADNEEP Pineda Ot H53.9 UNSPECIFIED VISUAL DISTURBANCE 06/25/2018 [facility] DO, AMANDEEP Pineda Ot I10 ESSENTIAL (PRIMARY) HYPERTENSION 06/25/2018 [facility] AMANDEEP Pineda Ot I38 ENDOCARDITIS, VALVE UNSPECIFIED 06/25/2018 GELLENDER DO, AMANDEEP Pineda Ot J18.1 LOBAR PNEUMONIA, UNSPECIFIED ORGANISM 06/25/2018 [facility], AMANDEEP Pineda Ot J44.9 CHRONIC OBSTRUCTIVE PULMONARY DISEASE, U 06/25/2018 [facility], AMANDEEP Pineda Ot M19.91 PRIMARY OSTEOARTHRITIS, UNSPECIFIED SITE 06/25/2018 [facility] DO, AMANDEEP Pineda Ot R01.1 CARDIAC MURMUR, UNSPECIFIED 06/25/2018 [facility], AMANDEEP Pineda Ot R41.0 DISORIENTATION, UNSPECIFIED 06/25/2018 GELDER DO, AMANDEEP Pineda Ot R42 DIZZINESS AND GIDDINESS 06/25/2018 [facility], AMANDEEP Pineda Ot R47.81 SLURRED SPEECH 06/25/2018 [facility], AMANDEEP Pineda Ot R79.89 OTHER SPECIFIED ABNORMAL FINDINGS OF BLO 06/25/2018 [facility], AMANDEEP Pineda Ot T42.0X5A ADVERSE EFFECT OF HYDANTOIN DERIVATIVES, 06/25/2018 [facility] AMANDEEP Ot T42.1X5A ADVERSE EFFECT OF IMINOSTILBENES, INITIA 06/25/2018 [facility] , AMANDEEP Pineda Ot Z87.891 PERSONAL HISTORY OF NICOTINE DEPENDENCE 06/25/2018 [facility] , AMANDEEP Pineda Ot Z92.21 PERSONAL HISTORY OF ANTINEOPLASTIC CHEMO 06/25/2018 [facility], AMANDEEP Pineda Ot Z99.81 DEPENDENCE ON SUPPLEMENTAL OXYGEN 06/26/2018 [facility], AMANDEEP Pineda Ot C34.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 06/26/2018 [facility], AMANDEEP Pineda Ot C79.51 SECONDARY MALIGNANT NEOPLASM OF BONE 06/26/2018 [facility] DO, AMANDEEP Pineda Ot D64.9 ANEMIA, UNSPECIFIED [...] W/O MYELOPATHY OR RADICULOPA 07/10/2018 SIVA RESENDIZ FOREST PATHOLOGY TEACHER Ot S12.190A OTH DISP FX OF SECOND CERVICAL VERTEBRA, 07/10/2018 SIVA RESENDIZ FOREST PATHOLOGY TEACHER Ot W19.XXXA UNSPECIFIED FALL, INITIAL ENCOUNTER 07/10/2018 SIVA RESENDIZ FOREST PATHOLOGY TEACHER Ot Z95.828 PRESENCE OF OTHER VASCULAR [...] UPPER LOBE, LEFT B 07/14/2018 SIVA RESENDIZ FOREST PATHOLOGY TEACHER Ot C79.51 SECONDARY MALIGNANT NEOPLASM OF BONE 07/14/2018 SIVA RESENDIZP Ot C34.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 NEOPLASM OF UPPER LOBE, LEFT B 07/14/2018 SIVA RESENDIZP Ot C34.12 MALIGNANT NEOPLASM OF UPPER LOBE, LEFT B 07/14/2018 SVIA RESENDIZP Ot C79.51 SECONDARY MALIGNANT NEOPLASM OF [...] CHEMOTHERAP 07/14/2018 STEPHEN PRICE Ot Z79.899 OTHER RECEIVER/LABORER (CURRENT) DRUG THERAPY 07/14/2018 STEPHEN PRICE Ot [...] C79.51 SECONDARY MALIGNANT NEOPLASM OF BONE 07/21/2018 [facility] AMANDEEP LASSITER Ot B35.1 TINEA [...] SECONDARY MALIGNANT NEOPLASM OF BONE 07/21/2018 [facility] AMANDEEP LASSITER Ot M43.12 SPONDYLOLISTHESIS, CERVICAL REGION 07/21/2018 AMANDEEP GENAO DO Ot M47.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 07/21/2018 AMADNEEP GENAO DO Ot S19.9XXA UNSPECIFIED INJURY OF [...] CHEMOTHERAP 07/21/2018 STEPHEN PRICE Ot Z79.899 OTHER RECEIVER/LABORER (CURRENT) DRUG THERAPY 07/21/2018 STEPHEN PRICE Ot [...] W19.XXXA UNSPECIFIED FALL, INITIAL ENCOUNTER 07/21/2018 SIVA REESNDIZ Ot Z95.828 PRESENCE OF OTHER VASCULAR IMPLANTS [...] B91 SEQUELAE OF POLIOMYELITIS 07/24/2018 GELLENDER DO, AMNADEEP Pineda Ot C34.90 MALIGNANT NEOPLASM OF UNSP [...] G81.94 HEMIPLEGIA, UNSPECIFIED AFFECTING LEFT N 07/24/2018 [facility], AMANDEEP Pineda Ot I10 ESSENTIAL (PRIMARY) HYPERTENSION 07/24/2018 GELLENDER DO, AMANDEEP Pineda Ot J18.1 LOBAR PNEUMONIA, UNSPECIFIED ORGANISM 07/24/2018 GELLENDER DO, AMANDEEP Pineda Ot J30.2 OTHER SEASONAL ALLERGIC RHINITIS 07/24/2018 [facility], AMANDEEP Pineda Ot J44.0 CHRONIC [...] 07/24/2018 [place] LASSITER, AMANDEEP Pineda Ot Z79.52 RECEIVER/LABORER (CURRENT) USE OF SYSTEMIC STER 07/24/2018 [facility] LASS[facility], AMANDEEP Pineda Ot Z79.899 OTHER LONGTERM (CURRENT) DRUG THERAPY 07/24/2018 [facility] LASSITER, AMANDEEP Pineda Ot Z87.891 PERSONAL HISTORY OF NICOTINE DEPENDENCE 07/24/2018 [facility] LASS[facility], AMANDEEP Pineda Ot Z91.19 PATIENT'S NONCOMPLIANCE W [facility] 07/24/2018 [place] LASSITER, AMANDEEP [...] 07/26/2018 STEPHEN PRICE N Ot Z79.899 OTHER LONGTERM (CURRENT) DRUG THERAPY 07/26/2018 STEPHEN PRICE N [...] 07/27/2018 STEPHEN PRICE N Ot Z79.899 OTHER LONGTERM (CURRENT) DRUG THERAPY 07/27/2018 STEPHEN PRICE Ot [...] 07/27/2018 STEPHEN PRICE Flavio Ot Z79.899 OTHER LONGTERM (CURRENT) DRUG THERAPY 07/27/2018 STEPHEN PRICE N [...] R91.1 SOLITARY PULMONARY NODULE 08/10/2018 SIVA RESENDIZ FOREST PATHOLOGY TEACHER Ot C34.12 MALIGNANT NEOPLASM OF UPPER LOBE, LEFT B 08/10/2018 SIVA RESENDIZ FOREST PATHOLOGY TEACHER Ot C79.51 SECONDARY MALIGNANT NEOPLASM OF BONE 08/10/2018 SIVA RESENDIZ FOREST PATHOLOGY TEACHER Ot C34.12 MALIGNANT NEOPLASM OF UPPER LOBE, LEFT B 08/10/2018 SIVA RESENDIZ FOREST PATHOLOGY TEACHER Ot C79.51 SECONDARY MALIGNANT NEOPLASM OF [...] Pineda Ot 729.81 SWELLING OF LIMB 08/10/2018 [facility] AMANDEEP Pineda Ot 780.79 OTH MALAISE FATIGUE 08/10/2018 GABRIELLE RIOS, YELITZA Marie Ot 780.3 9 OTHER CONVULSIONS 08/10/2018 [facility] AMANDEEP Pineda Ot 825.25 FX METATARSAL-CLOSED 08/10/2018 [facility] , AMANDEEP Pineda Ot E928.9 ACCIDENT NOS 08/10/2018 [facility] , AMANDEEP Pineda Ot 780.39 OTHER CONVULSIONS 08/10/2018 GELLENDER DO, AMANDEEP Pineda Ot 721.0 CERVICAL SPONDYLOSIS 08/10/2018 [facility] AMANDEEP Pineda Ot 496 CHR AIRWAY OBSTRUCT NEC 08/10/2018 [facility], AMANDEEP Pineda Ot 780.39 OTHER CONVULSIONS 08/10/2018 [facility] , AMANDEEP Pineda Ot E78.5 HYPERLIPIDEMIA, UNSPECIFIED 08/10/2018 [facility] AMANDEEP Pineda Ot J44.9 CHRONIC OBSTRUCTIVE PULMONARY DISEASE, U 08/10/2018 GELLENDER , AMANDEEP Pineda Ot M79.672 PAIN IN LEFT FOOT 08/10/2018 [facility], AMANDEEP Pineda Ot R56.9 UNSPECIFIED CONVULSIONS 08/10/2018 [facility] , AMANDEEP Pineda Ot Z87.81 PERSONAL HISTORY OF (HEALED) TRAUMATIC F 08/10/2018 [place] , AMANDEEP Pineda Ot E78.5 HYPERLIPIDEMIA, UNSPECIFIED 08/10/2018 GELLENDER DO, AMANDEEP Pineda Ot R56.9 UNSPECIFIED CONVULSIONS 08/10/2018 [facility], AMANDEEP Pineda Ot J44.9 CHRONIC OBSTRUCTIVE PULMONARY DISEASE, U 08/10/2018 GELLENDER DO, AMANDEEP Pineda Ot R63.4 ABNORMAL WEIGHT LOSS 08/10/2018 GELLENDER DO, AMANDEEP Pineda Ot R63.4 ABNORMAL WEIGHT LOSS 08/10/2018 GELLENDER DO, AMANDEEP Pineda Ot G40.909 EPILEPSY, UNSP, NOT INTRACTABLE, WITHOUT 08/10/2018 GELLENDER DO, AMANDEEP Pineda Ot J34.89 OTHER SPECIFIED DISORDERS OF NOSE AND NA 08/10/2018 [facility], AMANDEEP Pineda Ot S99.912A UNSPECIFIED [...] DISEASE, U 08/12/2018 NESTOR AVILEZ Ot Z79.51 RECEIVER/LABORER (CURRENT) USE OF INHALED STERO 08/12/2018 NESTOR [...] DISEASE, U 08/14/2018 NESTOR AVILEZ Ot Z79.51 LONGTERM (CURRENT) USE OF INHALED STERO 08/14/2018 NESTOR [...] CHEMOTHERAP 08/19/2018 STEPHEN PRICE Ot Z79.899 OTHER LONGTERM (CURRENT) DRUG THERAPY 08/19/2018 STEPHEN PRICE Ot [...] IMMUNIZATION 09/04/2018 STEFAN HERNANDEZ MD, Ot Z79.51 RECEIVER/LABORER (CURRENT) USE OF INHALED STERO 09/04/2018 STEFAN [...] Ot Z99.81 DEPENDENCE ON SUPPLEMENTAL OXYGEN 09/07/2018 [facility], AMANDEEP Pineda Ot C79.51 SECONDARY MALIGNANT NEOPLASM OF BONE 09/07/2018 [facility] Ot E78.00 PURE HYPERCHOLESTEROLEMIA, UNSPECIFIED 09/07/2018 [facility] Ot E87.1 HYPO-OSMOLALITY AND HYPONATREMIA 09/07/2018 [facility] Ot G14 POSTPOLIO SYNDROME 09/07/2018 [facility] Ot G40.909 EPILEPSY, UNSP, NOT INTRACTABLE, WITHOUT 09/07/2018 [facility] DOAM[facility]EP Ot G47.30 SLEEP APNEA, UNSPECIFIED 09/07/2018 [facility] Ot G62.9 POLYNEUROPATHY, UNSPECIFIED 09/07/2018 [facility] Ot I10 ESSENTIAL (PRIMARY) HYPERTENSION 09/07/2018 [facility] Ot J44.1 CHRONIC OBSTRUCTIVE PULMONARY DISEASE W 09/07/2018 [facility] Ot M19.91 PRIMARY OSTEOARTHRITIS, UNSPECIFIED SITE 09/07/2018 [facility] AMANDEEP LASSITER Ot R01.1 CARDIAC MURMUR, UNSPECIFIED 09/07/2018 [facility] Ot R09.02 HYPOXEMIA 09/07/2018 [facility] AMANDEEP LASSITER Ot R26.2 DIFFICULTY IN WALKING, NOT ELSEWHERE CLA 09/07/2018 [facility] SCHMIDT DO Ot R29.6 REPEATED FALLS 09/07/2018 [facility] Ot R41.82 ALTERED MENTAL STATUS, UNSPECIFIED 09/07/2018 [facility], AMANDEEP Pineda Ot R42 DIZZINESS AND GIDDINESS 09/07/2018 [facility], AMANDEEP Pineda Ot R47.81 SLURRED SPEECH 09/07/2018 [facility], AMANDEEP Pineda Ot R53.1 WEAKNESS 09/07/2018 [facility], AMANDEEP Pineda Ot S09.90XA UNSPECIFIED INJURY OF HEAD, INITIAL ENCO 09/07/2018 [facility] AMANDEEP Pineda Ot S90.812A ABRASION, LEFT FOOT, INITIAL ENCOUNTER 09/07/2018 [facility], AMANDEEP Pineda Ot W01.190A FALL SAME LEV FROM SLIP/TRIP W STRIKE AG 09/07/2018 [facility] , AMANDEEP Pineda Ot Y92.[address] [facility] [address] [facility] NON-[facility] (PRIVATE 09/07/2018 [place] , AMANDEEP Pineda Ot Z85.118 PERSONAL HISTORY OF MALIGNANT NEOPLASM O 09/07/2018 [facility] Ot Z87.01 PERSONAL HISTORY OF PNEUMONIA (RECURRENT 09/07/2018 [facility], AMANDEEP Miriam Ot Z87.891 PERSONAL HISTORY OF NICOTINE DEPENDENCE 09/07/2018 [facility] Miriam Ot Z92.21 PERSONAL HISTORY OF ANTINEOPLASTIC CHEMO 09/07/2018 [facility], AMANDEEP Miriam Ot Z99.81 DEPENDENCE ON SUPPLEMENTAL OXYGEN 09/08/2018 MARY RIOS, STEFAN Zuniga Ot E78.00 PURE HYPERCHOLESTEROLEMIA, UNSPECIFIED 09/08/2018 MARY RIOS, STEFAN Zuniga Ot G14 POSTPOLIO SYNDROME 09/08/2018 MARY RIOS, STEFAN Zuniga Ot G40.909 EPILEPSY, UNSP, NOT INTRACTABLE, WITHOUT 09/08/2018 MARY RIOS, STEFAN Zuniga Ot G47.30 SLEEP APNEA, UNSPECIFIED 09/08/2018 MRAY RIOS, STEFAN Zuniga Ot G62.9 POLYNEUROPATHY, UNSPECIFIED [...] IMMUNIZATION 09/08/2018 STEFAN HERNANDEZ MD, Ot Z79.51 LONGTERM (CURRENT) USE OF INHALED STERO 09/08/2018 STEFAN HERNANDEZ MD, Ot Z82.49 FAMILY HX OF ISCHEM HEART DIS AND OTH DI 09/08/2018 STEFAN HERNANDEZ MD, Ot Z85.118 PERSONAL HISTORY OF MALIGNANT NEOPLASM O 09/08/2018 STEFAN HERNANDEZ MD, Ot Z87.01 PERSONAL HISTORY OF PNEUMONIA (RECURRENT 09/08/2018 STEFAN HERNADNEZ MD, Ot Z87.891 PERSONAL HISTORY OF NICOTINE DEPENDENCE 09/08/2018 STEFAN HERNANDEZ MD, Ot Z88.6 ALLERGY STATUS TO ANALGESIC AGENT STATUS 09/08/2018 STEFAN HERNANDEZ MD, Ot Z92.21 PERSONAL HISTORY OF ANTINEOPLASTIC CHEMO 09/08/2018 STEFAN HERNANDEZ MD, Ot Z98.890 OTHER SPECIFIED POSTPROCEDURAL STATES 09/08/2018 STEFAN HERNANDEZ MD, Ot Z99.81 DEPENDENCE ON SUPPLEMENTAL OXYGEN 09/14/2018 STEPHEN PIRCE Ot C34.12 MALIGNANT NEOPLASM OF UPPER LOBE, LEFT B 09/14/2018 STEPHEN PRICE Ot C79.51 SECONDARY MALIGNANT NEOPLASM OF BONE 09/14/2018 STEPHEN PRICE Ot E78.5 HYPERLIPIDEMIA, UNSPECIFIED 09/14/2018 STEPHEN PRICE Ot G40.909 EPILEPSY, UNSP, NOT INTRACTABLE, WITHOUT 09/14/2018 STEPHEN PRICE Ot J43.9 EMPHYSEMA, UNSPECIFIED 09/14/2018 STEPHEN PRICE Ot Z51.11 ENCOUNTER FOR ANTINEOPLASTIC CHEMOTHERAP 09/14/2018 STEPHEN PRICE Ot Z79.899 OTHER RECEIVER/LABORER (CURRENT) DRUG THERAPY 09/14/2018 DEESTEPHEN PATRICIO Flavio Ot Z87.891 PERSONAL HISTORY OF NICOTINE DEPENDENCE 09/15/2018 NINA ANAYA LUMP ROLLER Ot C34.12 MALIGNANT NEOPLASM OF UPPER LOBE, LEFT B 09/15/2018 NINA ANAYA LUMP ROLLER Ot F17.201 NICOTINE DEPENDENCE, UNSPECIFIED, IN REM 09/15/2018 NINA ANAYA LUMP ROLLER Ot I25.10 ATHSCL HEART DISEASE OF [place] CORONARY 09/15/2018 IRMA ANAYAINE Juli LUMP ROLLER Ot I70.0 ATHEROSCLEROSIS OF [place] 09/15/2018 NINA ANAYA LUMP ROLLER Ot J18.9 PNEUMONIA, UNSPECIFIED ORGANISM 09/15/2018 IRMA ANAYAINE E LUMP ROLLER Ot J43.9 EMPHYSEMA, UNSPECIFIED 09/15/2018 IRMA ANAYAINE E LUMP ROLLER Ot J96.20 ACUTE AND CHR RESP FAILURE, UNSP W HYPOX 09/15/2018 IRMA ANAYAINE Juli LUMP ROLLER Ot J98.4 OTHER DISORDERS OF LUNG 09/15/2018 IRMA ANAYAINE Juli LUMP ROLLER Ot R91.8 OTHER NONSPECIFIC ABNORMAL FINDING OF DAVID 09/20/2018 NINA ANAYA LUMP ROLLER Ot C34.12 MALIGNANT NEOPLASM OF UPPER LOBE, LEFT B 09/20/2018 NINA ANAYA LUMP ROLLER Ot F17.201 NICOTINE DEPENDENCE, UNSPECIFIED, IN REM 09/20/2018 IRMA ANAYAINE Juli LUMP ROLLER Ot I25.10 ATHSCL HEART DISEASE OF [place] CORONARY 09/20/2018 NINA ANAYA LUMP ROLLER Ot I70.0 ATHEROSCLEROSIS OF [place] 09/20/2018 NINA ANAYA LUMP ROLLER Ot J18.9 PNEUMONIA, UNSPECIFIED ORGANISM 09/20/2018 IRMA ANAYAINE Juli LUMP ROLLER Ot J43.9 EMPHYSEMA, UNSPECIFIED 09/20/2018 IRMA ANAYAINE E LUMP ROLLER Ot J96.20 ACUTE AND CHR RESP FAILURE, UNSP W HYPOX 09/20/2018 IRMA ANAYAINE Juli LUMP ROLLER Ot J98.4 OTHER DISORDERS OF LUNG 09/20/2018 IRMA ANAYAINE Juli LUMP ROLLER Ot R91.8 OTHER NONSPECIFIC ABNORMAL FINDING OF [...] 09/24/2018 STEPHEN PRICE Flavio Ot Z79.899 OTHER RECEIVER/LABORER (CURRENT) DRUG THERAPY 09/24/2018 STEPHEN PRICE Flavio [...] BREATH 10/05/2018 STEFAN HERNANDEZ MD, Ot Z79.51 LONGTERM (CURRENT) USE OF INHALED STERO 10/05/2018 STEFAN [...] 10/05/2018 DEE, BOBAN N Ot Z79.899 OTHER LONGTERM (CURRENT) DRUG THERAPY 10/05/2018 DEE, BOBAN N [...] 10/08/2018 DEE, BOBAN N Ot Z79.899 OTHER LONGTERM (CURRENT) DRUG THERAPY 10/08/2018 DEE, BOBAN N [...] BREATH 10/10/2018 STEFAN HERNANDEZ MD, Ot Z79.51 LONGTERM (CURRENT) USE OF INHALED STERO 10/10/2018 STEFAN [...] BREATH 10/12/2018 STEFAN HERNANDEZ MD Ot Z79.51 RECEIVER/LABORER (CURRENT) USE OF INHALED STERO 10/12/2018 STEFAN HERNANDEZ MD, Ot Z82.49 FAMILY HX OF ISCHEM HEART DIS AND OTH DI 10/12/2018 STEFAN HERANNDEZ MD, Ot Z85.118 PERSONAL HISTORY OF MALIGNANT [...] APRN Ot I25.10 ATHSCL HEART DISEASE OF [place] CORONARY 10/12/2018 NINA ANAYA APRN Ot I70.0 [...] ABNORMAL FINDING OF DAVID 10/27/2018 NINA ANAYA LUMP ROLLER Ot C34.12 MALIGNANT NEOPLASM OF UPPER LOBE, LEFT B 10/27/2018 NINA ANAYA LUMP ROLLER Ot F17.201 NICOTINE DEPENDENCE, UNSPECIFIED, IN REM 10/27/2018 NINA ANAYA LUMP ROLLER Ot I25.10 ATHSCL HEART DISEASE OF [place] CORONARY 10/27/2018 NINA ANAYA LUMP ROLLER Ot I70.0 ATHEROSCLEROSIS OF [place] 10/27/2018 NINA ANAYA LUMP ROLLER Ot J18.9 PNEUMONIA, UNSPECIFIED ORGANISM 10/27/2018 NINA ANAYA LUMP ROLLER Ot J43.9 EMPHYSEMA, UNSPECIFIED 10/27/2018 NINA ANAYA LUMP ROLLER Ot J96.20 ACUTE AND CHR RESP FAILURE, UNSP W HYPOX 10/27/2018 NINA ANAYA LUMP ROLLER Ot J98.4 OTHER DISORDERS OF LUNG 10/27/2018 NINA ANAYA LUMP ROLLER Ot R91.8 OTHER NONSPECIFIC ABNORMAL FINDING OF DAVID 11/03/2018 STEPHEN PRICE Ot C34.12 MALIGNANT NEOPLASM OF UPPER LOBE, LEFT B 11/03/2018 STEPHEN RPICE Ot C79.51 SECONDARY MALIGNANT NEOPLASM OF BONE 11/03/2018 STEPHEN PRICE Ot E78.5 HYPERLIPIDEMIA, UNSPECIFIED 11/03/2018 STEPHEN PRICE Ot G40.909 EPILEPSY, UNSP, NOT INTRACTABLE, WITHOUT 11/03/2018 STEPHEN PRICE N Ot J43.9 EMPHYSEMA, UNSPECIFIED 11/03/2018 STEPHEN PRICE Ot Z51.11 ENCOUNTER FOR ANTINEOPLASTIC CHEMOTHERAP 11/03/2018 STEPHEN PRICE Ot Z79.899 OTHER LONGTERM (CURRENT) DRUG THERAPY 11/03/2018 STEPHEN PRICE Ot [...] 11/10/2018 KURT MOHR MD Ot Z79.899 OTHER RECEIVER/LABORER (CURRENT) DRUG THERAPY 11/17/2018 STEPHEN PRICE Ot [...] CHEMOTHERAP 11/17/2018 STEPHEN PRICE Ot Z79.899 OTHER LONGTERM (CURRENT) DRUG THERAPY 11/17/2018 STEPHEN PRICE Ot [...] Ot J98.11 ATELECTASIS 11/17/2018 RESENDIZSIVA Rodriguez Jennifer FOREST PATHOLOGY TEACHER Ot M43.12 SPONDYLOLISTHESIS, CERVICAL REGION 11/17/2018 SIVA RESENDIZ FOREST PATHOLOGY TEACHER Ot M47.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 11/17/2018 SIVA RESENDIZ FOREST PATHOLOGY TEACHER Ot S12.190A OTH DISP FX OF SECOND CERVICAL VERTEBRA, 11/17/2018 SIVA RESENDIZ FOREST PATHOLOGY TEACHER Ot W19.XXXA UNSPECIFIED FALL, INITIAL ENCOUNTER 11/17/2018 RESENDIZSIVA Rodriguez Jennifer FOREST PATHOLOGY TEACHER Ot Z95.828 PRESENCE OF OTHER VASCULAR IMPLANTS AND 11/17/2018 NINA ANAYA APRN Ot C34.12 MALIGNANT NEOPLASM OF UPPER LOBE, LEFT B 11/17/2018 NINA ANAYA APRN Ot F17.201 NICOTINE DEPENDENCE, UNSPECIFIED, IN REM 11/17/2018 NINA ANAYA APRN Ot I25.10 ATHSCL HEART DISEASE OF [place] CORONARY 11/17/2018 NINA ANAYA APRN Ot I70.0 [...] 1 CHRONIC OBSTRUCTIVE PULMONARY DISEASE W 11/17/2018 ARNI PACHECO DO Ot J96. 20 ACUTE AND [...] 11/17/2018 DEE, BOBAN N Ot Z79.899 OTHER RECEIVER/LABORER (CURRENT) DRUG THERAPY 11/17/2018 DEE, BOBAN N [...] 11/18/2018 DEE, BOBAN N Ot Z79.899 OTHER LONGTERM (CURRENT) DRUG THERAPY 11/18/2018 DEE, BOBAN N [...] ENCOUNTER FOR ANTINEOPLASTIC CHEMOTHERAP 11/23/2018 STEPHEN PRICE Flavoi Ot Z79.899 OTHER LONGTERM (CURRENT) DRUG THERAPY 11/23/2018 STEPHEN PRICE Flavio Ot Z87.891 PERSONAL HISTORY OF NICOTINE DEPENDENCE 11/24/2018 STEPHEN PRICE Flavio Ot C34.12 MALIGNANT NEOPLASM OF UPPER LOBE, LEFT B 11/24/2018 STEPHEN PRICE Flavio Ot C79.51 SECONDARY MALIGNANT NEOPLASM OF BONE 11/24/2018 STEPHEN PRICE Flavio Ot Z01.89 ENCOUNTER FOR OTHER SPECIFIED SPECIAL EX 11/25/2018 FAVIAN COWARTP Ot E78.00 PURE HYPERCHOLESTEROLEMIA, UNSPECIFIED 11/25/2018 SOFYA, FAVIAN FOREST PATHOLOGY TEACHER Ot F17.210 NICOTINE DEPENDENCE, CIGARETTES, UNCOMPL 11/25/2018 SOFYA, FAVIAN FOREST PATHOLOGY TEACHER Ot F17.290 NICOTINE DEPENDENCE, OTHER TOBACCO PRODU 11/25/2018 FAVIAN COWARTP Ot G40.909 EPILEPSY, UNSP, NOT INTRACTABLE, WITHOUT 11/25/2018 SOFYA FAVIAN FOREST PATHOLOGY TEACHER Ot G47.30 SLEEP APNEA, UNSPECIFIED 11/25/2018 SOFYA FAVIAN FOREST PATHOLOGY TEACHER Ot G62.9 POLYNEUROPATHY, UNSPECIFIED 11/25/2018 SOFYA, FAVIAN FOREST PATHOLOGY TEACHER Ot I10 ESSENTIAL (PRIMARY) HYPERTENSION 11/25/2018 SOFYA FAVIAN FOREST PATHOLOGY TEACHER Ot J06.9 ACUTE UPPER RESPIRATORY INFECTION, UNSPE 11/25/2018 FAVIAN COWARTP Ot J44.9 CHRONIC OBSTRUCTIVE PULMONARY DISEASE, U 11/25/2018 FAVIAN COWARTP Ot R05 COUGH 11/25/2018 FAVIAN COWART FOREST PATHOLOGY TEACHER Ot S12.100A UNSP DISP FX OF SECOND CERVICAL VERTEBRA 11/25/2018 FAVIAN COWARTP Ot W19.XXXA UNSPECIFIED FALL, INITIAL ENCOUNTER 11/25/2018 FAVIAN COWARTP Ot Z79.51 LONGTERM (CURRENT) USE OF INHALED STERO 11/25/2018 FAVIAN COWARTP Ot Z82.49 FAMILY HX OF ISCHEM HEART DIS AND OTH DI 11/25/2018 SOFYAFAVIAN Bustos FOREST PATHOLOGY TEACHER Ot Z85.118 PERSONAL HISTORY OF MALIGNANT NEOPLASM O 11/25/2018 SOFYAFAVIAN Bustos [employer] PATHOLOGY TEACHER Ot Z87.81 PERSONAL HISTORY OF (HEALED) TRAUMATIC F 11/25/2018 SOFYA FAVIAN [employer] PATH[employer] TEACHER Ot Z88.6 ALLERGY STATUS TO ANALGESIC AGENT STATUS 11/27/2018 FAVIAN COWART [employer] PATHOLOGY TEACHER Ot E78.00 PURE HYPERCHOLESTEROLEMIA, UNSPECIFIED 11/27/2018 SOFYA, FAVIAN [employer] PATHOLOG[employer] TEACHER Ot F17.210 NICOTINE DEPENDENCE, CIGARETTES, UNCOMPL 11/27/2018 SOFYA, FAVIAN [employer] PATHOLOGY TEACHER Ot F17.290 NICOTINE DEPENDENCE, OTHER TOBACCO PRODU 11/27/2018 SOFYA, FAVIAN [employer] PATHOLOG[employer] TEACHER Ot G40.909 EPILEPSY, UNSP, NOT INTRACTABLE, WITHOUT 11/27/2018 SOFYA, FAVIAN [employer] PATHOLOGY TEACHER Ot G47.30 SLEEP APNEA, UNSPECIFIED 11/27/2018 SOFYA, FAVIAN [employer] PATHOLOGY TEACHER Ot G62.9 POLYNEUROPATHY, UNSPECIFIED 11/27/2018 SOFYA, FAVIAN [employer] PATHOLOGY TEACHER Ot I10 ESSENTIAL (PRIMARY) HYPERTENSION 11/27/2018 SOFYA, FAVIAN FOREST PATHOLOGY TEACHER Ot J06.9 ACUTE UPPER RESPIRATORY INFECTION, UNSPE 11/27/2018 SOFYA, FAVIAN [employer] PATHOLOGY TEACHER Ot J44.9 CHRONIC OBSTRUCTIVE PULMONARY DISEASE, U 11/27/2018 FAVIAN COWART [employer] PATHOLOGY TEACHER Ot R05 COUGH 11/27/2018 SOFYA, FAVIAN [employer] PATHOLOGY TEACHER Ot S12.100A UNSP DISP FX OF SECOND CERVICAL VERTEBRA 11/27/2018 SOFYA, FAVIAN [employer] PATHOLOG[employer] TEACHER Ot W19.XXXA UNSPECIFIED FALL, INITIAL ENCOUNTER 11/27/2018 FAVIAN COWART [employer] PATHOLOGY TEACHER Ot Z79.51 RECEIVER/LABORER (CURRENT) USE OF INHALED STERO 11/27/2018 FAVIAN COWART FOR[employer] PATHOLOGY TEACHER Ot Z82.49 FAMILY HX OF ISCHEM HEART DIS AND OTH DI 11/27/2018 SOFYAFAVIAN Bustos FOREST PATHOLOGY TEACHER Ot Z85.118 PERSONAL HISTORY OF MALIGNANT NEOPLASM O 11/27/2018 FAVIAN COWART FOR[employer] PATHOLOGY TEACHER Ot Z87.81 PERSONAL HISTORY OF (HEALED) TRAUMATIC F 11/27/2018 SOFYA FAVIAN FOREST PATHOLOGY TEACHER Ot Z88.6 ALLERGY STATUS TO ANALGESIC [...] CHEMOTHERAP 12/10/2018 STEPHEN PRICE Ot Z79.899 OTHER LONGTERM (CURRENT) DRUG THERAPY 12/10/2018 STEPHEN PRICE Ot [...] INITIAL ENCOUNTER 01/09/2019 FAVIAN COWART Ot Z79.51 RECEIVER/LABORER (CURRENT) USE OF INHALED STERO 01/09/2019 FAVIAN [...] MALIGNANT NEOPLASM OF UNSPECIF 01/18/2019 SOFYA, FAVIAN [employer] PATHOLOGY TEACHER Ot E78.00 PURE HYPERCHOLESTEROLEMIA, UNSPECIFIED 01/18/2019 SOFYA FAVIAN [employer] PATHOLOGY TEACHER Ot G40.909 EPILEPSY, UNSP, NOT INTRACTABLE, WITHOUT 01/18/2019 FAVIAN COWART [employer] PATHOLOGY TEACHER Ot G62.9 POLYNEUROPATHY, UNSPECIFIED 01/18/2019 FAVIAN COWART FOREST PATHOLOGY TEACHER Ot I10 ESSENTIAL (PRIMARY) HYPERTENSION 01/18/2019 FAVIAN COWARTP Ot J44.9 CHRONIC OBSTRUCTIVE PULMONARY DISEASE, U 01/18/2019 FAVIAN COWART [employer] PATH[employer] TEACHER Ot M19.012 PRIMARY OSTEOARTHRITIS, LEFT SHOULDER 01/18/2019 FAVIAN COWART [employer] PATHOLOGY TEACHER Ot M25.512 PAIN IN LEFT SHOULDER 01/18/2019 FAVIAN COWART [employer] PATHOLOGY TEACHER Ot M75.102 UNSP ROTATR-CUFF TEAR/RUPTR OF LEFT SHOU 01/18/2019 FAVIAN COWART [employer] PATHOLOGY TEACHER Ot W19.XXXA UNSPECIFIED FALL, INITIAL ENCOUNTER 01/18/2019 FAVIAN COWARTP Ot Z79.51 LONGTERM (CURRENT) USE OF INHALED STERO 01/18/2019 FAVIAN COWART [employer] PATHOLOGY TEACHER Ot Z82.49 FAMILY HX OF ISCHEM HEART DIS AND OTH DI 01/18/2019 FAVIAN COWART FOR[employer] PATHOLOGY TEACHER Ot Z87.891 PERSONAL HISTORY OF NICOTINE DEPENDENCE 01/18/2019 FAVIAN COWART FOR[employer] PATHOLOGY TEACHER Ot Z88.6 ALLERGY STATUS TO ANALGESIC AGENT STATUS 01/18/2019 FAVIAN COWART FOR[employer] PATHOLOGY TEACHER Ot Z99.81 DEPENDENCE ON SUPPLEMENTAL OXYGEN 01/21/2019 FAVIAN COWART FOREST PATHOLOGY TEACHER Ot C34.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 01/21/2019 FAVIAN COWART FOREST PATHOLOGY TEACHER Ot C79.9 SECONDARY MALIGNANT NEOPLASM OF UNSPECIF 01/21/2019 FAVIAN COWART FOREST PATHOLOGY TEACHER Ot E78.00 PURE HYPERCHOLESTEROLEMIA, UNSPECIFIED 01/21/2019 FAVIAN COWART FOREST PATHOLOGY TEACHER Ot G40.909 EPILEPSY, UNSP, NOT INTRACTABLE, WITHOUT 01/21/2019 FAVIAN COWART FOREST PATHOLOGY TEACHER Ot G62.9 POLYNEUROPATHY, UNSPECIFIED 01/21/2019 SOFYA FAVIAN FOREST PATHOLOGY TEACHER Ot I10 ESSENTIAL (PRIMARY) HYPERTENSION 01/21/2019 FAVIAN COWART FOREST PATHOLOGY TEACHER Ot J44.9 CHRONIC OBSTRUCTIVE PULMONARY DISEASE, U 01/21/2019 FAVIAN COWART FOREST PATHOLOGY TEACHER Ot M19.012 PRIMARY OSTEOARTHRITIS, LEFT SHOULDER 01/21/2019 FAVIAN COWART Ot M25.512 PAIN IN LEFT SHOULDER 01/21/2019 SOFYAFAVIAN Bustos Ot M75.102 UNSP ROTATR-CUFF TEAR/RUPTR OF LEFT SHOU 01/21/2019 SOFYAFAVIAN Bustos Ot W19.XXXA UNSPECIFIED FALL, INITIAL ENCOUNTER 01/21/2019 SOFYAFAVIAN Bustos Ot Z79.51 RECEIVER/LABORER (CURRENT) USE OF INHALED STERO 01/21/2019 FAVIAN [...] CHEMOTHERAP 02/17/2019 STEPHEN PRICE Ot Z79.899 OTHER LONGTERM (CURRENT) DRUG THERAPY 02/17/2019 STEPHEN PRICE Ot [...] G40.909 EPILEPSY, UNSP, NOT INTRACTABLE, WITHOUT 02/18/2019 DEESTEHPEN Ot J43.9 EMPHYSEMA, UNSPECIFIED 02/18/2019 DEESTEPHEN Ot Z51.11 ENCOUNTER FOR ANTINEOPLASTIC CHEMOTHERAP 02/18/2019 DEESTEPHEN Ot Z79.899 OTHER RECEIVER/LABORER (CURRENT) DRUG THERAPY 02/18/2019 DEE, STEPHEN Muniz [...] 02/20/2019 GELLENDER DO, AMANDEEP Pineda Ot Z79.51 LONGTERM (CURRENT) USE OF INHALED STERO 02/20/2019 GELLENDER DO, AMANDEEP iPneda Ot Z85.118 PERSONAL HISTORY OF MALIGNANT NEOPLASM O 02/20/2019 GELLENDER DO, AMANDEEP Pineda Ot Z87.891 PERSONAL HISTORY OF NICOTINE DEPENDENCE 02/20/2019 [facility]WICK LASSITER, AMANDEEP Pineda Ot Z99.81 DEPENDENCE ON SUPPLEMENTAL OXYGEN 02/21/2019 CHADWICK LASSITER, AMANDEEP Pineda Ot M47.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 02/21/2019 [facility] AMANDEEP Pineda Ot S12.110A ANTERIOR DISPLACED TYPE II DENS FRACTURE 02/21/2019 CHADWICK LASSITER, AMANDEEP Pineda Ot W19.XXXA UNSPECIFIED FALL, INITIAL ENCOUNTER 03/12/2019 [facility] LASSITER, AMANDEEP Pineda Ot R56.9 UNSPECIFIED CONVULSIONS 03/12/2019 [facility], AMANDEEP Pineda Ot F17.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, UNSPECIFIED, UNCOMP 03/12/2019 [facility] , AMANDEEP Pineda Ot J44.9 CHRONIC OBSTRUCTIVE PULMONARY DISEASE, U 03/12/2019 [facility] , AMANDEEP Pineda Ot R63.4 ABNORMAL WEIGHT LOSS 03/12/2019 [facility] , AMANDEEP Pineda Ot J44.9 CHRONIC OBSTRUCTIVE PULMONARY DISEASE, U 03/12/2019 [facility] , AMANDEEP Pineda Ot R63.4 ABNORMAL WEIGHT LOSS 03/12/2019 [facility], AMANDEEP Pineda Ot R63.4 ABNORMAL WEIGHT LOSS 03/12/2019 [facility], AMANDEEP Pineda Ot G40.909 EPILEPSY, UNSP, NOT INTRACTABLE, WITHOUT 03/12/2019 [facility] , AMANDEEP Pineda Ot J44.9 CHRONIC OBSTRUCTIVE PULMONARY DISEASE, U 03/12/2019 [facility], AMANDEEP Pineda Ot E87.1 HYPO-OSMOLALITY AND HYPONATREMIA 03/12/2019 CHADWICK LASSITERAMANDEEP Ot G40.909 EPILEPSY, UNSP, NOT INTRACTABLE, WITHOUT 03/12/2019 [facility], AMANDEEP Pineda Ot J44.9 CHRONIC OBSTRUCTIVE PULMONARY DISEASE, U 03/12/2019 [facility] AMANDEEP Pineda Ot G40.909 EPILEPSY, UNSP, NOT INTRACTABLE, WITHOUT 03/12/2019 [facility] AMANDEEP Ot J34.89 OTHER SPECIFIED DISORDERS [...] OBSTRUCTIVE PULMONARY DISEASE, U 03/12/2019 NINA ANAYA LUMP ROLLER Ot M79.604 PAIN IN RIGHT LEG 03/12/2019 NINA ANAYA LUMP ROLLER Ot M79.605 PAIN IN LEFT LEG 03/12/2019 NINA ANAYA LUMP ROLLER Ot M79.89 OTHER SPECIFIED SOFT TISSUE DISORDERS 03/12/2019 NINA ANAYA LUMP ROLLER Ot R91.8 OTHER NONSPECIFIC ABNORMAL FINDING OF DAVID 03/12/2019 SIVA RESENDIZP Ot C34.12 MALIGNANT NEOPLASM OF UPPER LOBE, LEFT B 03/12/2019 SIVA RESENDIZ FOREST PATHOLOGY TEACHER Ot C79.51 SECONDARY MALIGNANT NEOPLASM OF BONE 03/12/2019 AMANDEEP GENAO DO Ot B35.1 TINEA UNGUIUM 03/12/2019 SIVA RESENDIZ FOREST PATHOLOGY TEACHER Ot C34.12 MALIGNANT NEOPLASM OF UPPER LOBE, LEFT B 03/12/2019 SIVA RESENDIZ Ot C79.51 SECONDARY MALIGNANT NEOPLASM OF BONE 03/12/2019 SIVA RESENDIZ Ot C34.12 MALIGNANT NEOPLASM OF UPPER LOBE, LEFT B 03/12/2019 SIVA RESENDIZ Ot C34.12 MALIGNANT NEOPLASM OF UPPER LOBE, LEFT B 03/12/2019 SIVA RESENDIZ Ot C79.51 SECONDARY MALIGNANT NEOPLASM OF BONE 03/12/2019 JOSERBAYAN AMANDEEP LASSITER Ot M43.12 SPONDYLOLISTHESIS, CERVICAL REGION 03/12/2019 [facility] AMANDEEP LASSITER Ot M47.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 03/12/2019 [facility] AMANDEEP LASSITER Ot S19.9XXA UNSPECIFIED INJURY OF NECK, INITIAL ENCO 03/12/2019 SIVA RESENDIZ Ot C34.12 MALIGNANT NEOPLASM OF UPPER LOBE, LEFT B 03/12/2019 SIVA RESENDIZ Ot C79.51 SECONDARY MALIGNANT NEOPLASM OF BONE 03/12/2019 [facility]DE[facility] Ot M19.011 PRIMARY OSTEOARTHRITIS, RIGHT SHOULDER 03/12/2019 [facility] Ot M79.621 PAIN IN RIGHT UPPER ARM 03/12/2019 [facility] Ot S79.911A UNSPECIFIED INJURY OF RIGHT HIP, INITIAL 03/12/2019 CHADWICK LASSITERAMANDEEP Ot W19.XXXA UNSPECIFIED FALL, INITIAL ENCOUNTER 03/12/2019 JOSEBRAYAN AMANDEEP LASSITER Ot R05 COUGH 03/12/2019 CHADWICK LASSITERAMANDEEP Ot R91.8 OTHER NONSPECIFIC ABNORMAL FINDING OF DAVID 03/12/2019 [facility] Ot Z95.828 PRESENCE OF OTHER VASCULAR IMPLANTS AND 03/12/2019 SIVA RESENDIZ Ot J98.11 ATELECTASIS 03/12/2019 SIVA RESENDIZ Ot M43.12 SPONDYLOLISTHESIS, CERVICAL REGION 03/12/2019 SIVA RESENDIZ Ot M47.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 03/12/2019 SIVA RESENDIZ Ot S12.190A OTH DISP FX OF SECOND CERVICAL VERTEBRA, 03/12/2019 SIVA RESENDIZ FOREST PATHOLOGY TEACHER Ot W19.XXXA UNSPECIFIED FALL, INITIAL ENCOUNTER 03/12/2019 SIVA RESENDIZ FOREST PATHOLOGY TEACHER Ot Z95.828 PRESENCE OF OTHER VASCULAR IMPLANTS AND 03/12/2019 NINA ANAYA APRN Ot C34.12 MALIGNANT NEOPLASM OF UPPER LOBE, LEFT B 03/12/2019 NINA ANAYA LUMP ROLLER Ot F17.201 NICOTINE DEPENDENCE, UNSPECIFIED, IN REM 03/12/2019 NINA ANAYA LUMP ROLLER Ot I25.10 ATHSCL HEART DISEASE OF [place] CORONARY 03/12/2019 NINA ANAYA APRN Ot I70.0 [...] CAR Ot I25.10 ATHSCL HEART DISEASE OF [place] CORONARY 03/12/2019 EFRAIN RESENDIZBRENDA Jennifer FOREST PATHOLOGY TEACHER Ot I70.0 ATHEROSCLEROSIS OF [place] 03/12/2019 EFRAIN RESENDIZBRENDA Jennifer ROSASP Ot J43.9 EMPHYSEMA, UNSPECIFIED 03/12/2019 SIVA RESENDIZP Ot N28.1 CYST OF KIDNEY, ACQUIRED 03/12/2019 SIVA RESENDIZP Ot Z01.89 ENCOUNTER FOR OTHER SPECIFIED SPECIAL EX 03/12/2019 RESENDIZEFRAINBRENDA Rodriguez FOREST PATHOLOGY TEACHER Ot Z79.51 RECEIVER/LABORER (CURRENT) USE OF INHALED STERO 03/12/2019 EFRAIN RESENDIZBRENDA Jennifer CAR Ot Z85.118 PERSONAL HISTORY OF MALIGNANT NEOPLASM O 03/12/2019 CHADWICK LASSITERAMANDEEP Ot M19.012 PRIMARY OSTEOARTHRITIS, LEFT SHOULDER 03/12/2019 [facility]DEEP Ot S49.92XA UNSP INJURY OF LEFT SHOULDER AND UPPER A 03/12/2019 [facility] AMANDEEP Ot W19.XXXA UNSPECIFIED FALL, INITIAL ENCOUNTER 03/12/2019 CHADWICK LASSITERAMANDEEP Ot M47.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 03/12/2019 [facility]DEEP Ot S12.110D ANT DISPL TYPE II DENS FRACTURE, SUBS FO 03/12/2019 CHADWICK LASSITERAMANDEEP Ot W19.XXXD UNSPECIFIED FALL, SUBSEQUENT ENCOUNTER 03/12/2019 CHADWICK LASSITERAMANDEEP Ot M47.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 03/12/2019 [facility] Ot S12.110A ANTERIOR DISPLACED TYPE II DENS FRACTURE 03/12/2019 [facility] Ot W19.XXXA UNSPECIFIED FALL, INITIAL [...] CHEMOTHERAP 03/12/2019 STEPHEN PRICE Ot Z79.899 OTHER RECEIVER/LABORER (CURRENT) DRUG THERAPY 03/12/2019 STEPHEN PRICE Ot [...] PAIN IN LEFT LEG 03/12/2019 NINA ANAYA LUMP ROLLER Ot M79.89 OTHER SPECIFIED SOFT TISSUE DISORDERS 03/12/2019 NINA ANAYA LUMP ROLLER Ot R91.8 OTHER NONSPECIFIC ABNORMAL FINDING OF DAVID 03/12/2019 SIVA RESENDIZP Ot C34.12 MALIGNANT NEOPLASM OF UPPER LOBE, LEFT B 03/12/2019 SIVA RESENDIZP Ot C79.51 SECONDARY MALIGNANT NEOPLASM OF BONE 03/12/2019 AMANDEEP GENAO DO Ot B35.1 TINEA UNGUIUM 03/12/2019 SIVA RESENDIZ FOREST PATHOLOGY TEACHER Ot C34.12 MALIGNANT NEOPLASM OF UPPER [...] SECOND CERVICAL VERTEBRA, 03/12/2019 RESENDIZ, HILAH S FOREST PATHOLOGY TEACHER Ot W19.XXXA UNSPECIFIED FALL, INITIAL ENCOUNTER 03/12/2019 SIVA RESENDIZ JOCELINE Ot Z95.828 PRESENCE OF OTHER VASCULAR IMPLANTS AND 03/12/2019 NINA ANAYA APRN Ot C34.12 MALIGNANT NEOPLASM OF UPPER LOBE, LEFT B 03/12/2019 NINA ANAYA APRN Ot F17.201 NICOTINE DEPENDENCE, UNSPECIFIED, IN REM 03/12/2019 NINA ANAYA APRN Ot I25.10 ATHSCL HEART DISEASE OF [place] CORONARY 03/12/2019 NINA ANAYA APRN Ot I70.0 [...] CAR Ot I25.10 ATHSCL HEART DISEASE OF [place] CORONARY 03/12/2019 SIVA RESENDIZP Ot I70.0 ATHEROSCLEROSIS OF [place] 03/12/2019 SIVA RESENDIZP Ot J43.9 EMPHYSEMA, UNSPECIFIED 03/12/2019 SIVA RESENDIZ Ot N28.1 CYST OF KIDNEY, ACQUIRED 03/12/2019 SIVA RESENDIZP Ot Z01.89 ENCOUNTER FOR OTHER SPECIFIED SPECIAL EX 03/12/2019 EFRAIN RESENDIZBRENDA Jennifer ROSASP Ot Z79.51 LONGTERM (CURRENT) USE OF INHALED STERO 03/12/2019 SIVA [...] M47.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 03/12/2019 [facility] Ot S12.110A ANTERIOR DISPLACED TYPE II DENS FRACTURE 03/12/2019 [facility] AMANDEEP Ot W19.XXXA UNSPECIFIED FALL, INITIAL ENCOUNTER [...] 03/12/2019 DEE BOBAN N Ot Z79.899 OTHER RECEIVER/LABORER (CURRENT) DRUG THERAPY 03/12/2019 DEE SABASAN N Ot Z87.891 PERSONAL HISTORY OF NICOTINE DEPENDENCE 03/16/2019 HÉCTOR NINA E LUMP ROLLER Ot C34.12 MALIGNANT NEOPLASM OF UPPER LOBE, LEFT B 03/16/2019 HÉCTOR, NINA E LUMP ROLLER Ot F17.201 NICOTINE DEPENDENCE, UNSPECIFIED, IN REM 03/16/2019 HÉCTOR NINA E LUMP ROLLER Ot J18.9 PNEUMONIA, UNSPECIFIED ORGANISM 03/16/2019 HÉCTOR, NINA E LUMP ROLLER Ot J44.1 CHRONIC OBSTRUCTIVE PULMONARY DISEASE W 03/16/2019 HÉCTOR, NINA E LUMP ROLLER Ot J96.20 ACUTE AND CHR RESP FAILURE, UNSP W HYPOX 03/19/2019 HÉCTOR NINA E LUMP ROLLER Ot C34.12 MALIGNANT NEOPLASM OF UPPER LOBE, LEFT B 03/19/2019 HÉCTOR, NINA E LUMP ROLLER Ot F17.201 NICOTINE DEPENDENCE, UNSPECIFIED, IN REM 03/19/2019 HÉCTOR, NINA E LUMP ROLLER Ot J18.9 PNEUMONIA, UNSPECIFIED ORGANISM 03/19/2019 HÉCTOR NINA E LUMP ROLLER Ot J44.1 CHRONIC OBSTRUCTIVE PULMONARY DISEASE W 03/19/2019 HÉCTOR, NINA E LUMP ROLLER Ot J96.20 ACUTE AND CHR RESP FAILURE, [...] 03/30/2019 DEE BOBAN N Ot Z79.899 OTHER RECEIVER/LABORER (CURRENT) DRUG THERAPY 03/30/2019 STEPHEN PRICE Ot [...] CHEMOTHERAP 04/04/2019 STEPHEN PRICE Ot Z79.899 OTHER LONGTERM (CURRENT) DRUG THERAPY 04/04/2019 STEPHEN PRICE Ot [...] RESENDIZP Ot I25.10 ATHSCL HEART DISEASE OF [place] CORONARY 04/13/2019 SIVA RESENDIZP Ot I70.0 ATHEROSCLEROSIS OF [place] 04/13/2019 SIVA RESENDIZP Ot J43.9 EMPHYSEMA, UNSPECIFIED 04/13/2019 SIVA RESENDIZ Ot N28.1 CYST OF KIDNEY, ACQUIRED 04/13/2019 SIVA RESENDIZP Ot Z01.89 ENCOUNTER FOR OTHER SPECIFIED SPECIAL EX 04/13/2019 SIVA RESENDIZ FOREST PATHOLOGY TEACHER Ot Z79.51 LONGTERM (CURRENT) USE OF INHALED STERO 04/13/2019 SIVA RESENDIZ FOREST PATHOLOGY TEACHER Ot Z85.118 PERSONAL HISTORY OF MALIGNANT NEOPLASM O 04/22/2019 MARY RIOS, STEFAN Zuniga Ot E78.00 PURE HYPERCHOLESTEROLEMIA, UNSPECIFIED 04/22/2019 MARY RIOS, STEFAN Zuniga Ot G40.909 EPILEPSY, UNSP, NOT INTRACTABLE, WITHOUT 04/22/2019 MARY RIOS, STEFAN Zuinga Ot G47.30 SLEEP APNEA, UNSPECIFIED 04/22/2019 MARY [...] 04/22/2019 MARY RIOS, STEFAN Zuniga Ot Z79.51 RECEIVER/LABORER (CURRENT) USE OF INHALED STERO 04/22/2019 MARY [...] CHEMOTHERAP 05/10/2019 STEPHEN PRICE Ot Z79.899 OTHER RECEIVER/LABORER (CURRENT) DRUG THERAPY 05/10/2019 STEPHEN PRICE Ot [...] 05/19/2019 GELLENDER DO, AMANDEEP Pineda Ot Z79.891 LONGTERM (CURRENT) USE OF OPIATE ANALGE 05/19/2019 GELLENDER DO, AMANDEEP Pineda Ot Z79.899 OTHER RECEIVER/LABORER (CURRENT) DRUG THERAPY 05/19/2019 GELLENDER DO, AMANDEEP [...] 05/19/2019 GELLENDER DO, AMANDEEP Pineda Ot Z79.891 RECEIVER/LABORER (CURRENT) USE OF OPIATE ANALGE 05/19/2019 GELLENDER DO, AMANDEEP Pineda Ot Z79.899 OTHER RECEIVER/LABORER (CURRENT) DRUG THERAPY 05/19/2019 GELLENDER DO, AMANDEEP [...] UNSPECIFIED FALL, INITIAL ENCOUNTER 05/31/2019 SIVA RESENDIZ FOREST PATHOLOGY TEACHER Ot G25.5 OTHER [place] 05/31/2019 SIVA RESENDIZ FOREST PATHOLOGY TEACHER Ot 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 MAXILLARY SINUSITIS 05/31/2019 SIVA RESENDIZ FOREST PATHOLOGY TEACHER Ot R 51 HEADACHE 05/31/2019 SIVA RESENDIZ FOREST PATHOLOGY TEACHER Ot W19.XXXA UNSPECIFIED FALL, INITIAL ENCOUNTER 06/01/2019 SIVA RESENDIZ FOREST PATHOLOGY TEACHER Ot G25.5 OTHER [place] 06/01/2019 SIVA RESENDIZ FOREST PATHOLOGY TEACHER Ot 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 MAXILLARY SINUSITIS 06/01/2019 SIVA RESENDIZ FOREST PATHOLOGY TEACHER Ot R 51 HEADACHE 06/01/2019 SIVA RESENDIZ FOREST PATHOLOGY TEACHER Ot W19.XXXA UNSPECIFIED FALL, INITIAL ENCOUNTER 06/04/2019 MARY RIOS, STEFAN Zuniga Ot C34.90 MALIGNANT NEOPLASM OF [facility] 06/04/2019 MARY RIOS, STEFAN Zuniga Ot [...] Ot W19.XXXA UNSPECIFIED FALL, INITIAL ENCOUNTER 06/08/2019 [facility] AMANDEEP Pineda Ot Y99.8 OTHER EXTERNAL CAUSE STATUS 06/08/2019 GELLENDER DO, AMANDEEP Pineda Ot G40.909 EPILEPSY, UNSP, NOT INTRACTABLE, WITHOUT 06/08/2019 GELLENDER DO, AMANDEEP Pineda Ot R06.02 SHORTNESS OF BREATH 06/08/2019 [facility] AMANDEEP Pineda Ot R63.4 [...] DO Ot Z72. 0 TOBACCO USE 06/08/2019 [facility], AMANDEEP Pineda Ot J44.9 CHRONIC OBSTRUCTIVE PULMONARY DISEASE, U 06/08/2019 NINA ANAYA APRN Ot M79.604 PAIN IN RIGHT LEG 06/08/2019 NINA ANAYA APRN Ot M79.605 PAIN IN LEFT LEG 06/08/2019 NINA ANAYA APRN Ot M79.89 OTHER SPECIFIED SOFT TISSUE DISORDERS 06/08/2019 NINA ANAYA LUMP ROLLER Ot R91.8 OTHER NONSPECIFIC ABNORMAL FINDING OF DAVID 06/08/2019 SIVA RESENDIZ S FOREST PATHOLOGY TEACHER Ot C34.12 MALIGNANT NEOPLASM OF UPPER LOBE, LEFT B 06/08/2019 SIVA RESENDIZ S FOREST PATHOLOGY TEACHER Ot C79.51 SECONDARY MALIGNANT NEOPLASM OF BONE 06/08/2019 [facility], AMANDEEP Pineda Ot B35.1 TINEA UNGUIUM 06/08/2019 SIVA RESENDIZ S FOREST PATHOLOGY TEACHER Ot C34.12 MALIGNANT NEOPLASM OF UPPER LOBE, LEFT B 06/08/2019 SIVA RESENDIZ S FOREST PATHOLOGY TEACHER Ot C79.51 SECONDARY MALIGNANT NEOPLASM OF BONE 06/08/2019 SIVA RESENDIZ S FOREST PATHOLOGY TEACHER Ot C34.12 MALIGNANT NEOPLASM OF UPPER LOBE, LEFT B 06/08/2019 SIVA RESENDIZ S FOREST PATHOLOGY TEACHER Ot C34.12 MALIGNANT NEOPLASM OF UPPER LOBE, LEFT B 06/08/2019 MARTÍN HILBRENDA S FOREST PATHOLOGY TEACHER Ot C79.51 SECONDARY MALIGNANT NEOPLASM OF BONE 06/08/2019 [facility], AMANDEEP Pineda Ot M43.12 SPONDYLOLISTHESIS, CERVICAL REGION 06/08/2019 [facility] Ot M47.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 06/08/2019 [facility] Ot S19.9XXA UNSPECIFIED INJURY OF NECK, INITIAL ENCO 06/08/2019 SIVA RESENDIZ S FOREST PATHOLOGY TEACHER Ot C34.12 MALIGNANT NEOPLASM OF UPPER LOBE, LEFT B 06/08/2019 SIVA RESENDIZ S FOREST PATHOLOGY TEACHER Ot C79.51 SECONDARY MALIGNANT NEOPLASM OF BONE 06/08/2019 [facility] Ot M19.011 PRIMARY OSTEOARTHRITIS, RIGHT SHOULDER 06/08/2019 [facility] Ot M79.621 PAIN IN RIGHT UPPER ARM [...] VASCULAR IMPLANTS AND 06/08/2019 SIVA RESENDIZ S FOREST PATHOLOGY TEACHER Ot J98.11 ATELECTASIS 06/08/2019 SIVA RESENDIZ S FOREST PATHOLOGY TEACHER Ot M43.12 SPONDYLOLISTHESIS, CERVICAL REGION 06/08/2019 SIVA RESENDIZ S FOREST PATHOLOGY TEACHER Ot M47.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 06/08/2019 SIVA RESENDIZ S FOREST PATHOLOGY TEACHER Ot S12.190A OTH DISP FX OF SECOND CERVICAL VERTEBRA, 06/08/2019 SIVA RESENDIZ S FOREST PATHOLOGY TEACHER Ot W19.XXXA UNSPECIFIED FALL, INITIAL ENCOUNTER 06/08/2019 SIVA RESENDIZ FOREST PATHOLOGY TEACHER Ot Z95.828 PRESENCE OF OTHER VASCULAR IMPLANTS AND 06/08/2019 NINA ANAYA APRN Ot C34.12 MALIGNANT NEOPLASM OF UPPER LOBE, LEFT B 06/08/2019 NINA ANAYA LUMP ROLLER Ot F17.201 NICOTINE DEPENDENCE, UNSPECIFIED, IN REM 06/08/2019 NINA ANAYA LUMP ROLLER Ot I25.10 ATHSCL HEART DISEASE OF [place] CORONARY 06/08/2019 NINA ANAYA LUMP ROLLER Ot I70.0 ATHEROSCLEROSIS OF [place] 06/08/2019 NINA ANAYA LUMP ROLLER Ot J18.9 PNEUMONIA, UNSPECIFIED ORGANISM 06/08/2019 NINA ANAYA LUMP ROLLER Ot J43.9 EMPHYSEMA, UNSPECIFIED 06/08/2019 NINA ANAYA LUMP ROLLER Ot J96.20 ACUTE AND CHR RESP FAILURE, UNSP W HYPOX 06/08/2019 NINA ANAYA LUMP ROLLER Ot J98.4 OTHER DISORDERS OF LUNG 06/08/2019 NINA ANAYA LUMP ROLLER Ot R91.8 OTHER NONSPECIFIC ABNORMAL FINDING OF [...] UPPER LOBE, LEFT B 06/08/2019 NINA ANAYA LUMP ROLLER Ot F17.201 NICOTINE DEPENDENCE, UNSPECIFIED, IN REM 06/08/2019 NINA ANAYA LUMP ROLLER Ot J18.9 PNEUMONIA, UNSPECIFIED ORGANISM 06/08/2019 NINA ANAYA LUMP ROLLER Ot J44.1 CHRONIC OBSTRUCTIVE PULMONARY DISEASE W 06/08/2019 NINA ANAYA LUMP ROLLER Ot J96.20 ACUTE AND CHR RESP FAILURE, UNSP W HYPOX 06/08/2019 AMANDEEP GENAO DO Ot R56.9 UNSPECIFIED CONVULSIONS 06/08/2019 SIVA RESENDIZP Ot I25.10 ATHSCL HEART DISEASE OF [place] CORONARY 06/08/2019 SIVA RESENDIZ FOREST PATHOLOGY TEACHER Ot I70.0 ATHEROSCLEROSIS OF [place] 06/08/2019 SIVA RESENDIZ FOREST PATHOLOGY TEACHER Ot J43.9 EMPHYSEMA, UNSPECIFIED 06/08/2019 SIVA RESENDIZ FOREST PATHOLOGY TEACHER Ot N28.1 CYST OF KIDNEY, ACQUIRED 06/08/2019 SIVA RESENDIZ FOREST PATHOLOGY TEACHER Ot Z01.89 ENCOUNTER FOR OTHER SPECIFIED SPECIAL EX 06/08/2019 RESENDIZ, HILAH S FOREST PATHOLOGY TEACHER Ot Z79.51 RECEIVER/LABORER (CURRENT) USE OF INHALED STERO 06/08/2019 SIVA RESENDIZ FOREST PATHOLOGY TEACHER Ot Z85.118 PERSONAL HISTORY OF MALIGNANT NEOPLASM O 06/08/2019 GELLENDER DO, AMANDEEP Miriam Ot M19.012 PRIMARY OSTEOARTHRITIS, LEFT SHOULDER 06/08/2019 GELLENDER DO, AMANDEEP Miriam Ot S49.92XA UNSP INJURY OF LEFT SHOULDER AND UPPER A 06/08/2019 GELLENDER DO, AMANDEEP Mirima Ot W19.XXXA UNSPECIFIED FALL, INITIAL ENCOUNTER 06/08/2019 [...] CHEMOTHERAP 06/08/2019 STEPHEN PRICE Ot Z79.899 OTHER RECEIVER/LABORER (CURRENT) DRUG THERAPY 06/08/2019 STEPHEN PRICE Ot Z87.891 PERSONAL HISTORY OF NICOTINE DEPENDENCE 06/08/2019 STEPHEN PRICE Ot Z92.21 PERSONAL HISTORY OF ANTINEOPLASTIC CHEMO 06/08/2019 SIVA RESENDIZP Ot M19.072 PRIMARY OSTEOARTHRITIS, LEFT ANKLE AND F 06/08/2019 RESENDIZSIVA Rodriguez FOREST PATHOLOGY TEACHER Ot W19.XXXA UNSPECIFIED FALL, INITIAL ENCOUNTER 06/08/2019 SIVA RESENDIZ FOREST PATHOLOGY TEACHER Ot G25.5 OTHER [place] 06/08/2019 SIVA RESENDIZ FOREST PATHOLOGY TEACHER Ot 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 MAXILLARY SINUSITIS 06/08/2019 SIVA RESENDIZ FOREST PATHOLOGY TEACHER Ot R 51 HEADACHE 06/08/2019 SIVA RESENDIZ FOREST PATHOLOGY TEACHER Ot W19.XXXA UNSPECIFIED FALL, INITIAL ENCOUNTER [...] CHEMOTHERAP 06/10/2019 STEPHEN PRICE Ot Z79.899 OTHER RECEIVER/LABORER (CURRENT) DRUG THERAPY 06/10/2019 STEPHEN PRICE Ot [...] 06/11/2019 GELLENDER DO, AMANDEEP Pineda Ot Z79.891 RECEIVER/LABORER (CURRENT) USE OF OPIATE ANALGE 06/11/2019 GELLENDER DO, AMANDEEP Pineda Ot Z79.899 OTHER RECEIVER/LABORER (CURRENT) DRUG THERAPY 06/11/2019 GELLENDER DO, AMANDEEP [...] 06/11/2019 GELLENDER DO, AMANDEEP Miriam Ot Z79.891 LONGTERM (CURRENT) USE OF OPIATE ANALGE 06/11/2019 [facility], AMANDEEP Pineda Ot Z79.899 OTHER RECEIVER/LABORER (CURRENT) DRUG THERAPY 06/11/2019 [facility], AMANDEEP Pineda Ot Z83.3 FAMILY HISTORY OF DIABETES MELLITUS 06/11/2019 [facility]END[facility] DO, AMANDEEP Pineda Ot Z85.830 PERSONAL HISTORY OF MALIGNANT NEOPLASM O 06/11/2019 GELLENDER DO, AMANDEEP Pineda Ot Z88.6 ALLERGY STATUS TO ANALGESIC AGENT STATUS 06/11/2019 GELLENDER DO, AMANDEEP Pineda Ot Z92.21 PERSONAL HISTORY OF ANTINEOPLASTIC CHEMO 06/14/2019 SIVA RESENDIZ Ot I25.10 ATHSCL HEART DISEASE OF [place] CORONARY 06/14/2019 SIVA RESENDIZP Ot I70.0 ATHEROSCLEROSIS OF [place] 06/14/2019 SIVA RESENDIZP Ot J43.9 EMPHYSEMA, UNSPECIFIED 06/14/2019 SIVA RESENDIZP Ot N28.1 CYST OF KIDNEY, ACQUIRED 06/14/2019 SIVA RESENDIZP Ot Z01.89 ENCOUNTER FOR OTHER SPECIFIED SPECIAL EX 06/14/2019 SIVA RESENDIZP Ot Z79.51 LONGTERM (CURRENT) USE OF INHALED STERO 06/14/2019 SIVA RESENDIZ FOREST PATHOLOGY TEACHER Ot Z85.118 PERSONAL HISTORY OF MALIGNANT [...] 06/20/2019 STEPHEN PRICE N Ot Z79.899 OTHER LONGTERM (CURRENT) DRUG THERAPY 06/20/2019 STEPHEN PRICE N Ot Z87.891 PERSONAL HISTORY OF NICOTINE DEPENDENCE 06/20/2019 STEPHEN PRICE N Ot Z92.21 PERSONAL HISTORY OF ANTINEOPLASTIC CHEMO 06/21/2019 STEPHEN PRICE N Ot C34.12 MALIGNANT NEOPLASM OF UPPER LOBE, LEFT B 06/21/2019 STEPHEN PRICE N Ot C79.51 SECONDARY MALIGNANT NEOPLASM OF BONE 06/21/2019 STEPHEN PRCIE N Ot E78.5 HYPERLIPIDEMIA, UNSPECIFIED 06/21/2019 DEESTEPHEN N Ot G40.909 EPILEPSY, UNSP, NOT INTRACTABLE, WITHOUT 06/21/2019 DEESTEPHEN N Ot J43.9 EMPHYSEMA, UNSPECIFIED 06/21/2019 DEESTEPHEN N Ot Z51.11 ENCOUNTER FOR ANTINEOPLASTIC CHEMOTHERAP 06/21/2019 STEPHEN PRICE N Ot Z79.899 OTHER LONGTERM (CURRENT) DRUG THERAPY 06/21/2019 STEPHEN PRICE N [...] LARA MD Ot E87.2 ACIDOSIS 06/23/2019 BALBIR ALRA MD Ot G1 4 POSTPOLIO SYNDROME 06/23/2019 [...] W19.XXXD UNSPECIFIED FALL, SUBSEQUENT ENCOUNTER 07/06/2019 GELLENDER DOAMADNEEP Ot R56.9 UNSPECIFIED CONVULSIONS 07/06/2019 GELLENDER DO, [...] CHEMOTHERAP 07/14/2019 STEPHEN PRICE Ot Z79.899 OTHER LONGTERM (CURRENT) DRUG THERAPY 07/14/2019 STEPHEN PRICE Ot Z87.891 PERSONAL HISTORY OF NICOTINE DEPENDENCE 07/14/2019 STEPHEN PRICE N Ot Z92.21 PERSONAL HISTORY OF ANTINEOPLASTIC CHEMO 07/19/2019 HÉCTOR, NINA E LUMP ROLLER Ot C34.12 MALIGNANT NEOPLASM OF UPPER LOBE, LEFT B 07/19/2019 HÉCTORIRMA TATUMINE E LUMP ROLLER Ot F17.201 NICOTINE DEPENDENCE, UNSPECIFIED, IN REM 07/19/2019 HÉCTOR NINA E LUMP ROLLER Ot J18.9 PNEUMONIA, UNSPECIFIED ORGANISM 07/19/2019 HÉCTORIRMA TATUMINE Juli LUMP ROLLER Ot J44.1 CHRONIC OBSTRUCTIVE PULMONARY DISEASE W 07/19/2019 HÉCTOR NINA E LUMP ROLLER Ot J96.20 ACUTE AND CHR RESP FAILURE, [...] 07/21/2019 STEPHEN PRICE N Ot Z79.899 OTHER LONGTERM (CURRENT) DRUG THERAPY 07/21/2019 STEPHEN PRICE Ot Z87.891 PERSONAL HISTORY OF NICOTINE DEPENDENCE 07/21/2019 STEPHEN PRICE N Ot Z92.21 PERSONAL HISTORY OF ANTINEOPLASTIC CHEMO Procedures Code [place] [address] OXIMETRY 08/19/2012 94897 OXIMETRY 12/10/2013 [id number] RE SPIRATORY VENTILATION, 24- 96 CONSECUTI 03/09/2017 [id number] EX CISION OF THORAX LYMPHATIC, PERC ENDO 05/21/2017 [id number] EX TRACTION OF L LOW LUNG LOBE, PERC ENDO 05/21/[id number] MCCOY OF RIGHT MIDDLE LUNG LOBE, ENDO 07/23/2018 [id number] EX TIRPATION OF MATTER FROM RIGHT MAIN BR 07/23/2018 [id number] EX TIRPATION OF MATTER FROM LEFT MAIN BRO 07/23/2018 [id number] EX TRACTION OF RIGHT MIDDLE LUNG LOBE, EN 07/23/2018 [id number] RE PAIR SCALP SKIN, EXTERNAL APPROACH 02/18/2019 [id number] SISTANCE WITH RESPIRATORY VENTILATION, 04/04/2019 Results Test [...] . NRG Bacterial blood culture SEE [facility] Comprehensive metabolic panel - 03/09/17 16:35 Serum [...] PLUS NORMAL MAGED NRG Bacterial sputum culture [id number] NR Bacterial susceptibility panel - 7 05:12 [...] culture - 05/20/17 16:35 Bacterial blood culture [facility] Complete blood count (CBC) with automate [...] in bronchial specimen by aerob e culture [id number] NRG FTX;REPORTABLE SENSITIVITY REPORTED AT 1642, 2 [...] PLUS NORMAL MAGED NR Bacterial sputum culture [id number] [facility] Bacterial susceptibility panel - 8 11:30 Gentamicin [...] anisocytosis detection by light microscopy S LIGHT [facility] Comprehensive metabolic panel - 09/24/17 03:35 Serum [...] - 01/26/18 14:08 Bacterial blood culture NG [facility] Complete blood count (CBC) with automate d [...] OF GROWTH Isolated NR Bacterial blood culture [id number] NR Influenza virus A and B antigen [...] culture - 05/15/18 17:02 Bacterial blood culture [facility] Complete blood count (CBC) with automate [...] culture - 06/10/18 03:42 Bacterial blood culture [facility] Influenza virus A and B antigen detectio n - 06/10/18 03:45 FLU RESULT NEGATIVE FOR INFLUENZA A AND B ANTIGENS BY IA NR Bacterial blood culture - 06/10/18 04:46 Bacterial blood culture [facility] Complete urinalysis with reflex to cultu [...] INFLUENZA A AND B ANTIGENS BY IA [facility] Comprehensive metabolic panel - 12/01/18 02:25 Serum [...] plasma alkaline phosphatase imck surement (enzymatic activity/volume) 148 U/L 40-136 Serum [...] INFLUENZA A AND B ANTIGENS BY IA [facility] Complete blood count (CBC) with automate d [...] - 06/21/19 05:53 Bacterial blood culture NG [facility] Influenza virus A and B antigen detectio n - 06/21/19 06:00 FLU RESULT NEGATIVE FOR INFLUENZA A AND B ANTIGENS BY IA [facility] Bacterial blood culture - 06/21/19 06:14 Bacterial blood culture NG [facility] Blood lactic acid measurement (moles/vol ume) - 06/21/19 10:35 Blood lactic acid measurement (moles/volume) 0.96 mmol/L 0.50-2.00 Gram stain microscopy - 06/21/19 19:42 Gram stain microscopy Rare Gram positive bacilli NRG Bacteria identification in wound by cult ure - 06/21/19 19:42 Bacteria identification in wound by culture [id number] NRG QUANTITY OF GROWTH . NRG [...] NRG Blood hypochromia detection by light microscopy [facility] [place] Comprehensive metabolic panel - 06/22/19 03:02 Serum [...] d white blood cell (WBC) differential - 07/23/19 00:09 Blood leukocytes automated count (number/volume) 16.1 10*3/uL 4.3-11.0 Blood erythrocytes automated count (number/volume) 4.07 10*6/uL 4.35-5.85 Venous blood hemoglobin measurement (mass/volume) [...] 82 % 42-75 Automated blood lymphocytes/100 leukocytes 5 % 12-44 Blood monocytes/100 leukocytes 12 % 0-12 Automated blood eosinophils/100 leukocytes 0 % 0-10 Automated blood basophils/100 leukocytes 0 % 0-10 Blood neutrophils automated count (number/volume) 13.3 10*3 1.8-7.8 Blood lymphocytes automated count (number/volume) 0.9 10*3 1.0-4.0 Blood monocytes automated count (number/volume) 2. 0 10*3 0.0-1.0 Automated eosinophil count 0.0 10*3/uL 0 .0-0.3 Automated blood basophil count (count/volume) 0.0 10*3/uL 0.0-0.1 PT panel in platelet poor plasma by coag ulation assay - 07/23/19 00:09 Prothrombin time (PT) in platelet poor plasma by coagu lation assay 12.7 s 12.2-14.7 INR in platelet poor plasma or blood by coagulation as say 0.9 0.8-1.4 Activated partial thromboplastin time (a PTT) in platelet poor plasma bycoagulation assay - 07/23/19 00:09 Activated partial thromboplastin time (a PTT) in platelet poor plasma bycoagulation assay 39 s 24-35 Influenza virus A and B antigen detectio n - 07/23/19 00:09 FLU RESULT NEGATIVE FOR INFLUENZA A AND B ANTIGENS BY IA NRG Blood lactic acid measurement (moles/vol ume) - 07/23/19 00:09 Blood lactic acid measurement (moles/volume) 0.90 mmol/L 0.50-2.00 Comprehensive metabolic panel - 07/23/19 00:09 Serum or plasma sodium measurement (moles/volume) 128 mmol/L 135-145 Serum or plasma potassium measurement (moles/volume) 4.1 mmol/L 3.6-5.0 Serum or plasma chloride measurement (moles/volume) 91 mmol/L 98-107 Carbon dioxide 26 mmol/L 21-32 [...] plasma alkaline phosphatase mick surement (enzymatic activity/volume) 182 U/L 40-136 Serum or plasma aspartate aminotransfera se measurement (enzymatic activity/volume) 14 U/L 5-34 Serum or plasma alanine aminotransferase measurement (enzymatic activity/volume) 10 U/L 0-55 Serum or plasma protein measurement (mass/volume) 6.9 g/dL 6.4-8.2 Serum or plasma albumin measurement (mass/volume) 3.7 g/dL 3.2-4.5 CALCIUM CORRECTED 8.9 mg/dL 8.5-10.1 Manual absolute plasma cell count - 06/30 07/18 00:09 Blood monocytes/100 leukocytes 11 % NRG Manual blood segmented neutrophils/100 leukocytes 84 % NRG Manual blood lymphocytes/100 leukocytes 5 % NRG Blood erythrocyte morphology finding identification NORMAL NRG Arterial blood gas measurement - 0 00:22 Blood pCO2 52 mm[Hg] 35-45 Blood pO2 78 mm[Hg] 79-93 Arterial blood bicarbonate measurement (moles/volume) 33 mmol/L 23-27 Arterial blood base excess by calculation 8.2 mmol /L -2.5-2.5 Arterial blood oxygen saturation measurement 95 % 94-100 * Inhaled oxygen flow rate 4 NRG Arterial blood pH measurement with patient temperature correction 7.41 7.37-7.43 Arterial blood carbon dioxide, total measurement (mole s/volume) 34.8 mmol/L 21.0-31.0 Body site RIGHT RADIAL NRG Assessment of wrist artery patency prior to arterial p uncture POSITIVE NRG Setting of ventilation mode NO NR G Measurement of body temperature 38.2 NRG Encounters ACCT No. Visit Date/Time Discharge Status Pt. Type Provider Facility Loc./Unit Complaint [id number] 12/10/2013 15:08:00 12/10/2013 23:59: 59 CLS Outpatient DIPESH MIKE APRN [id number] 08/19/2012 13:16:00 Document Registration [id number] 07/15/2019 09:13:00 23:59:59 CLS Outpatient STEPHEN PRICE [facility] ONC [id number] 06/28/2019 11:30:00 23:59:59 CLS Preadmit ADENIKE RIOS, SHARON Quiñones [facility] WOUNDCARE [id number] 06/21/2019 09:11:00 11:50:00 DIS Outpatient BALBIR LARA MD [facility] 4TH COPD, SACRAL PRESSURE ULCER [id number] 06/04/2019 10:35:00 00:01:00 DIS Outpatient STEPHEN PRICE [facility] ONC [id number] 06/08/2019 19:30:00 23:59:59 CLS Inpatient AMANDEEP GENAO DO [facility] 4TH L TIB/FIB FRACT URE [id number] 06/05/2019 02:11:00 14:00:00 DIS Inpatient MYRNA MERCADO DO [facility] 4TH COPD EXACERBATI ON [id number] 05/28/2019 11:16:00 23:59:59 CLS Outpatient SIVA RESENDIZP [facility] RAD HEADACHE,FALLS [id number] 05/25/2019 15:37:00 23:59:59 CLS Outpatient SIVA RESENDIZ [employer] [facility] RAD [id number] 05/17/2019 20:00:00 15:30:00 DIS Inpatient AMANDEEP GENAO DO [facility] 4TH COPD W EXACERBA TION [id number] 04/04/2019 07:34:00 10:15:00 DIS Inpatient AMANDEEP GENAO DO [facility] 4TH RLL PNEUMONIA, RESP DISTRESS [id number] 03/19/2019 13:03:00 23:59:59 CLS Preadmit NINA ANAYA APRN [facility] RAD CHRONIC BRONCHITIS,COPD,PNEUMONIA,LUNG MASS,ASTHMA [id number] 03/15/2019 11:52:00 23:59:59 CLS Outpatient NINA ANAYA APRN [facility] RAD CHRONIC BRONCHITIS,PNEUMONIA,LUNG MASS,ASTHMA [id number] 02/18/2019 14:30:00 16:28:00 DIS Inpatient AMANDEEP GENAO DO [facility] 4TH PNEUMONIA;WEAKN ESS [id number] 02/11/2019 13:03:00 00:01:00 DIS Outpatient STEPHEN PRICE [facility] ONC [id number] 02/15/2019 07:55:00 23:59:59 CLS Outpatient AMANDEEP GENAO DO [facility] RAD FALL,NECK PAIN [id number] 02/03/2019 16:14:00 23:59:59 CLS Outpatient AMANDEEP GENAO DO [facility] RAD FALL [id number] 01/18/2019 13:49:00 15:24:00 DIS Emergency FAVIAN COWART [employer] [facility] ER SOA [id number] 01/11/2019 12:07:00 23:59:59 CLS Outpatient SIVA RESENDIZ [employer] [facility] CARD NON SMALL CELL LUNG CA [id number] 01/06/2019 13:33:00 23:59:59 CLS Outpatient AMANDEEP GENAO DO [facility] RAD FELL,HURT L KYLE ULDER [id number] 12/01/2018 02:02:00 05:05:00 DIS Emergency MARY RIOS, STEFAN Zuniga [facility] ER SOB [id number] 11/25/2018 15:53:00 18:11:00 DIS Emergency FAVIAN COWART [facility] ER CONGESTION, COUGH [id number] 11/17/2018 15:42:00 23:59:59 CLS Outpatient AMANDEEP GENAO DO [facility] LAB SEIZURE [id number] 10/22/2018 13:30:00 00:01:00 DIS Outpatient STEPHEN PRICE [facility] ONC [id number] 10/05/2018 03:11:00 05:43:00 DIS Emergency MARY RIOS, STEFAN Zuniga [facility] ER SOB [id number] 09/14/2018 08:31:00 23:59:59 CLS Outpatient NINA ANAYA APRN [facility] RAD LUNG MASS,PNEUM ONIA [id number] 09/04/2018 18:22:00 12:14:00 DIS Inpatient AMANDEEP GENAO DO [facility] 4TH COPD EXACERBATI ON,AMS [id number] 09/04/2018 07:22:00 09:42:00 DIS Emergency MARY RIOS, STEFAN Zuniga [facility] ER FALL [id number] 08/12/2018 17:27:00 19:01:00 DIS Emergency BERNNESTOR MILIAN [facility] ER PAIN BEHIND LEFT EAR, T ROUBLE WALKING [id number] 07/20/2018 13:16:00 00:01:00 DIS Outpatient STEPHEN PRICE [facility] ONC [id number] 07/22/2018 00:00:00 13:50:00 DIS Inpatient AMANDEEP GENAO DO [facility] 4TH PNEUMONIA;LUNG CANCER ON CHEMO;COPD/ [id number] 07/14/2018 10:42:00 23:59:59 CLS Outpatient STEPHEN PRICE [facility] CARD NON SMALL CELL LUNG CA [id number] 07/02/2018 14:31:00 23:59:59 CLS Outpatient RANI PACHECO DO [facility] RAD NON SMALL CELL LUNG CAN CER [id number] 06/24/2018 20:23:00 14:26:00 DIS Inpatient BROOKEAMANDEEP SAUCEDO DO [facility] 4TH RLL PNA [id number] 06/22/2018 14:51:00 23:59:59 CLS Outpatient SIVA RESENDIZ [employer] [facility] RAD [id number] 06/10/2018 04:35:00 15:30:00 DIS Inpatient AMANDEEP GENAO DO [facility] 4TH RLL PNEUMONIA C OPD EXACERBATION [id number] 05/15/2018 13:27:00 14:15:00 DIS Inpatient JAMIR ELLISON DO, [facility] 4TH NEUTROPENIA,PNEUMONIA,H YPONATREMIA [id number] 05/14/2018 14:53:00 23:59:59 CLS Outpatient AMANDEEP GENAO DO [facility] RAD COUGH [id number] 05/12/2018 15:17:00 23:59:59 CLS Outpatient AMANDEEP GENAO DO [facility] RAD FELL AND HURT R IGHT SHOULDER [id number] 05/05/2018 11:59:00 23:59:59 CLS Outpatient SIVA RESENDIZP [facility] CARD NON SMALL CELL LUNG CA [id number] 04/21/2018 16:40:00 16:35:00 DIS Inpatient AMANDEEP GENAO DO [facility] 4TH COPD,EPILEPSY,L EFT LOWER LOBE PNEUM;LUNG CA [id number] 03/30/2018 13:59:00 00:01:00 DIS Outpatient STEPHEN PRICE [facility] ONC [id number] 03/24/2018 22:15:00 018 10:42:00 DIS Inpatient AMANDEEP GENAO DO [facility] 4TH SEIZURE DISORDER,GENERALIZED WEAKNESS,META LUNG CA [id number] 03/16/2018 20:46:00 018 11:22:00 DIS Inpatient AMANDEEP GENAO DO [facility] 4TH ORTHOSTATIC HYPOTENSION,HYPONATREMIA [id number] 03/09/2018 13:48:00 14:30:00 DIS Inpatient BROOKELENAMANDEEP SCHMIDT DO [facility] 4TH WEAKNESS, C2 FR ACTURE [id number] 02/10/2018 12:15:00 23:59:59 CLS Outpatient SIVA RESENDIZP [facility] CARD NON SMALL CELL LUNG CA [id number] 01/26/2018 15:30:00 13:15:00 DIS Inpatient AMANDEEP GENAO DO [facility] 4TH PNENOMONIA,LUNG CANCER [id number] 01/19/2018 16:00:00 23:59:59 CLS Outpatient AMANDEEP GENAO DO [facility] RAD TRAUMA TO NECK [id number] 01/13/2018 12:15:00 23:59:59 CLS Preadmit NINA ANAYA APRN [facility] RAD PNEUMONIA,NON-S MALL CELL LUNG CANCER [id number] 01/08/2018 14:06:00 23:59:59 CLS Outpatient SIVA RESENDIZP [facility] RAD [id number] 12/26/2017 13:12:00 14:23:00 DIS Outpatient STEPHEN PRICE [facility] ONC [id number] 12/24/2017 08:01:00 09:47:00 DIS Outpatient KURT MOHR MD [facility] SDC CATARACT [id number] 12/22/2017 05:39:00 018 14:34:00 DIS Outpatient KURT MOHR MD [facility] PREOP CATARACT [id number] 12/12/2017 10:20:00 018 12:10:00 DIS Outpatient KURT MOHR MD [facility] SDC CATARACT LEFT EYE [id number] 12/10/2017 06:22:00 018 14:11:00 DIS Outpatient KURT MOHR MD [facility] PREOP CATARACT LEFT EYE [id number] 12/04/2017 09:11:00 018 13:15:00 DIS Inpatient AMANDEEP GENAO DO [facility] 4TH COPD ACUTE EXAC ERBATION [id number] 11/14/2017 20:45:00 018 14:28:00 DIS Inpatient JAMIR ELLISON DO, V [facility] 4TH RLL PNEUMONIA,ORTHOSTAT IC HYPOTENSION,HX LUNG CA [id number] 10/30/2017 11:00:00 018 23:59:59 CLS Outpatient SIVA RESENDIZ [facility] CARD NON-SMALL CELL LUNG CANCER,SECONDARY CANCER OF [place] [id number] 10/07/2017 12:07:00 018 23:59:59 CLS Outpatient AMANDEEP GENAO DO [facility] LAB TOENAIL FUNGUS [id number] 09/18/2017 13:18:00 018 00:01:00 DIS Outpatient STEPHEN PRICE [facility] ONC [id number] 09/24/2017 04:46:00 018 15:52:00 DIS Inpatient AMANDEEP GENAO DO [facility] 4TH PNEUMONIA,METAS TATIC LUNG CANCER ON CHEMO,COPD [id number] 09/04/2017 11:24:00 018 23:59:59 CLS Outpatient SIVA RESENDIZ [facility] LAB NON SMALL CELL LUNG CANCER [id number] 08/28/2017 17:10:00 018 23:59:59 CLS Outpatient NINA ANAYA APRN [facility] RAD LEG PAIN,LEG SW ELLING,LUNG MASS [id number] 08/05/2017 15:56:00 018 12:55:00 DIS Inpatient AMANDEEP GENAO DO [facility] 4TH COPD ACUTE EXACERBATION;RESP DISTRESS [id number] 08/05/2017 10:11:00 018 15:17:00 DIS Emergency VANESSA GUTHRIE MD [facility] ER SOB [id number] 07/29/2017 14:37:00 018 13:31:00 DIS Inpatient AMANDEEP GENAO DO [facility] 4TH PNEUMONIA,COPD EXACERBATION [id number] 07/28/2017 12:13:00 23:59:59 CLS Outpatient AMANDEEP GENAO DO [facility] RAD COUGH R05,CONGE STION R09.81 [id number] 07/24/2017 10:27:00 018 14:30:00 DIS Outpatient CÉSAR NEGRETE DO [facility] LUNG CANCER [id number] 07/23/2017 14:46:00 018 15:11:00 DIS Outpatient CÉSAR NEGRETE DO [facility] PREOP LUNG CA [id number] 07/09/2017 08:57:00 018 14:25:00 DIS Outpatient STEPHEN PRICE [facility] RAD R93.7 ABNORMAL MRI SCAN , BONE [id number] 07/03/2017 08:40:00 23:59:59 CLS Outpatient STEPHEN PRICE [facility] RAD R91.1 LUNG NODULE [id number] 07/02/2017 08:26:00 23:59:59 CLS Outpatient RANI PACHECO DO [facility] RAD ABN PET OF LUNG CA [id number] 06/17/2017 09:08:00 018 23:59:59 CLS Outpatient JUNIOR RANI Crispin [facility] RAD LUNG NODULE,LUNG MASS,T OBACCO USER [id number] 06/03/2017 09:00:00 018 23:59:59 CLS Preadmit AMANDEEP GENAO DO [facility] RAD SPICULATED NODU LE IN LT UPPER LOBE OF LUNG [id number] 05/20/2017 16:28:00 018 14:48:00 DIS Inpatient AMANDEEP GENAO DO [facility] 4TH PNEUMONIA BILAT LL,MASS L UPPER LOBE,FATIGUE,PAST- [id number] 04/30/2017 19:42:00 018 23:27:00 DIS Emergency NOREEN CHÁVEZ LUMP ROLLER [facility] ER NOSE BLEED [id number] 04/30/2017 15:18:00 018 18:22:00 DIS Emergency NOREEN CHÁVEZ LUMP ROLLER [facility] ER NOSE BLEED [id number] 04/14/2017 14:15:00 018 23:59:59 CLS Preadmit NINA ANAYA APRN [facility] PULM ASTHMA [id number] 04/06/2017 11:15:00 018 14:00:00 DIS Inpatient AMANDEEP GENAO DO [facility] 4TH BILAT LOWER LOB E PNA, COPD [id number] 04/03/2017 10:09:00 018 23:59:59 CLS Preadmit NINA ANAYA LUMP ROLLER [facility] RT ASTHMA [id number] 04/03/2017 10:07:00 018 23:59:59 CLS Preadmit NINA ANAYA LUMP ROLLER [facility] RAD TOBACCO USER [id number] 03/30/2017 07:03:00 018 12:25:00 DIS Inpatient AMANDEEP GENAO DO [facility] 4TH RESP, DISTRESS, COPD EXACERBATION [id number] 03/09/2017 18:31:00 017 14:50:00 DIS Inpatient AMANDEEP GENAO DO Miriam [facility] 4TH SEVERE SEPSIS,R EPIRATORY FAILURE,PNEUMONIA [id number] 03/05/2017 10:54:00 017 13:24:00 DIS Emergency IRAIDA PRATT MD [facility] ER SKIN ABRASIONS ON NOSE AND LEFT HAND--FALL [id number] 02/28/2017 13:26:00 017 14:45:00 DIS Inpatient AMANDEEP GENAO DO Miriam [facility] 4TH PNEUMONIA,COPD EXACERBATION [id number] 02/04/2017 15:03:00 23:59:59 CLS Outpatient BROOKESHERYL LASSITER AMANDEEP Miriam [facility] LAB SOB COPD WEIGHT LOSS [id number] 01/14/2017 12:26:00 23:59:59 CLS Outpatient JOSEMILLER AMANDEEP Miriam [facility] RAD FELL-HIT HEAD [id number] 12/19/2016 12:24:00 017 23:59:59 CLS Outpatient BROOKESHERYL LASSITER AMANDEEP Miriam [facility] RAD COPD,COUGH [id number] 09/10/2016 13:39:00 23:59:59 CLS Outpatient BROOKESHERYL LASSITER AMANDEEP Miriam [facility] LAB SEIZURE [id number] 08/20/2016 10:59:00 017 23:59:59 CLS Outpatient BROOKESHERYL LASSITER AMANDEEP Miriam [facility] LAB SEIZURE COPD [id number] 02/28/2016 13:20:00 016 23:59:59 CLS Outpatient BROOKESHERYL LASSITER AMANDEEP Miriam [facility] RAD WEIGHT LOSS [id number] 02/21/2016 09:42:00 016 23:59:59 CLS Outpatient BROOKEAMANDEEP SAUCEDO DO [facility] 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,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 [id number] 02/19/2016 16:00:00 23:59:59 CLS Outpatient AMANDEEP GENAO DO [facility] RAD RECENT 20LB [place] GHT LOSS [id number] 12/13/2015 16:15:00 23:59:59 CLS Outpatient AMANDEEP GENAO DO [facility] LAB SEIZURE [id number] 11/20/2015 07:17:00 09:32:00 DIS Emergency STEFAN HERNANDEZ MD [facility] ER SEIZURE [id number] 10/24/2015 13:47:00 15:18:00 DIS Emergency NOREEN CHÁVEZ APRN [facility] ER LEFT EAR LAC [id number] 08/10/2015 16:11:00 12:30:00 DIS Inpatient AMANDEEP GENAO DO [facility] 4TH COPD EXACERBATI ON [id number] 07/09/2015 13:22:00 23:59:59 CLS Outpatient AMANDEEP GENAO DO [facility] LAB HYPERLIPIDEMIA [id number] 06/13/2015 13:09:00 11:40:00 DIS Inpatient AMANDEEP GENAO DO [facility] 4TH COPD EXACERBATI ON HYPONATREMIA [id number] 05/30/2015 12:53:00 23:59:59 CLS Outpatient AMANDEEP GENAO DO [facility] LAB SEIZURES,HYPERLIPIDEMIA,PAIN IN L FOOT,HX OF FX [id number] 03/11/2015 16:23:00 11:36:00 DIS Inpatient AMANDEEP GENAO DO [facility] 4TH PNEUMONIA,HYPOXIA,SEIZURE,COPD EXAC [id number] 11/08/2014 12:06:00 23:59:59 CLS Outpatient AMANDEEP GENAO DO [facility] LAB [id number] 08/26/2014 11:54:00 13:42:00 DIS Emergency KARIS BONILLA [facility] ER SOA [id number] 04/26/2014 13:15:00 015 23:59:59 CLS Outpatient JOSEAMANDEEP SCHMIDT DO [facility] LAB SEIZURES,COPD [id number] 03/25/2014 12:57:00 014 23:59:59 CLS Outpatient JOSEAMANDEEP SCHMIDT DO [facility] RAD NUMBNESS TINGLI NG OF R ARM [id number] 11/16/2013 12:35:00 014 23:59:59 CLS Outpatient BROOKEAMANDEEP SAUCEDO DO [facility] LAB LAMICTAL LEVEL [id number] 11/08/2013 11:10:00 014 11:27:00 DIS Emergency VANESSA GUTHRIE MD [facility] ER STAPLE REMOVAL [id number] 11/02/2013 01:47:00 03:43:00 DIS Emergency VANESSA GUTHRIE MD [facility] ER SEIZURE [id number] 11/01/2013 16:10:00 23:59:59 CLS Outpatient BROOKEAMANDEEP SAUCEDO DO [facility] RAD LT FOOT SWELLIN G AND HAS BUMP ON 1ST METATARSAL [id number] 10/23/2013 12:37:00 23:59:59 CLS Outpatient YELITZA ANTHONY MD [facility] LAB SEIZURES-PRIMARY [id number] 09/28/2013 12:18:00 014 23:59:59 CLS Outpatient AMANDEEP GENAO DO [facility] LAB LEFT LEG SWELL [id number] 09/17/2013 01:40:00 014 03:55:00 DIS Emergency CELESTE BILLY DO [facility] ER SEIZURE-FELL [id number] 09/03/2013 12:42:00 23:59:59 CLS Outpatient AMANDEEP GENAO DO [facility] LAB SEIZURE,COPD [id number] 07/20/2013 09:49:00 014 23:59:59 CLS Outpatient AMANDEEP GENAO DO [facility] RAD WEIGHT LOSS, AB D PAIN [id number] 07/12/2013 16:11:00 014 23:59:59 CLS Outpatient AMANDEEP GENAO DO [facility] LAB LOST 10 LBS, AB D PAIN [id number] 05/25/2013 16:19:00 014 23:59:59 CLS Outpatient AMANDEEP GENAO DO [facility] RAD COUGH,BRONCHITI S [id number] 02/16/2013 13:23:00 16:25:00 DIS Emergency NOREEN CHÁVEZ APRN [facility] ER FELL HURT ANKLE,KNEE, H IP [id number] 12/23/2012 12:55:00 013 14:12:00 DIS Emergency NOREEN CHÁVEZ APRN [facility] ER FALL/LEFT RIB PAIN [id number] 10/29/2012 11:00:00 23:59:59 CLS Outpatient AMANDEEP GENAO DO [facility] RAD COPD [id number] 10/22/2012 16:07:00 23:59:59 CLS Outpatient AMANDEEP GENAO DO [facility] RAD BRONCHITIS,COPD [id number] 07/23/2019 00:38:00 Document Registration [id number] 12/09/2011 15:35:00 Document Registration [id number] 10/15/2011 11:10:00 Document Registration [id number] 07/23/2011 23:37:00 Document Registration [id number] 05/18/2011 14:31:00 Document Registration [id number] 02/15/2011 13:07:00 Document Registration [id number] 01/28/2011 12:37:00 Document Registration [id number] 06/23/2010 19:15:00 Document Registration [id number] 05/08/2010 14:15:00 Document Registration [id number] 02/14/2010 11:40:00 Document Registration [id number] 12/02/2009 12:42:00 Document Registration
--- NOTE | 2019-07-23 02:14 | NUR ---
pt mpoved to room 411 on vapotherm, without incident, rn in room Addendum: 07/23/19 at 0214 by LAVON KEY RT Amended: Links added.
[2019-07-23] MEDS ORDERED: ONDANSETRON 4 MG/2 ML (SDV) Z0FRAN IV PRN (02:45)
[2019-07-23] MEDS: LACTATED RINGERS 1,000 ML IV SCH ×2 (02:57→16:15)
[2019-07-23] MEDS: methylPREDNISolone 40 MG/ML (Solu-MEDROL) VIAL IV SCH ×4 (06:09→23:40)
--- NOTE | 2019-07-23 06:30 | Pulmonary Consultation ---
History of Present Illness History of Present Illness Date Seen by Provider: Jul 23, 2019 Time Seen by Provider: 06:24 Date of Admission History of Present Illness 64yo with hx of severe COPD, lung cancer, and multiple admissions presented to ED secondary to worseing SOB and fever of 38. 1 . Denies nausea, vomiting or diarrhea. Denies any sick contacts. Stays at home as he is unable to get up due to foot injury. His girlfriend is his digital measurement advisor and she is not sick. pt was placed on cefepime and vapotherm and admitted to 4th floor. Allergies and Home Medications Allergies Coded Allergies: aspirin (Unverified Allergy, Mild, DOES NOT WORK WELL W/ OTHER MEDS, 07/23/19) ibuprofen (Unverified Allergy, Mild, 07/23/19) Home Medications Acetaminophen 500 Mg Tablet, 1,000 MG PO Q8H PRN for PAIN-MILD (1-4), (Reported) Albuterol Sulfate 2.5 Mg/3 Ml Vial.neb, 2.5 MG NEB Q4H PRN for SHORTNESS OF BREATH, (Reported) Albuterol Sulfate 1 Puff Puff, 2 PUFF IH Q6H PRN for SHORTNESS OF BREATH, (Reported) Amlodipine Besylate 5 Mg Tablet, 5 MG PO 0800, (Reported) Atorvastatin Calcium 20 Mg Tablet, 10 MG PO 0300, (Reported) TAKES OF A 20MG ONCE DAILY Azithromycin 250 Mg Tablet, 250 MG PO UD TAKE 2 TABLETS ON DAY ONE THEN TAKE 1 TABLET DAILY FOR FOUR MORE DAYS Prescribed by: BALBIR LARA on 06/25/19 0825 Budesonide/Formoterol Fumarate 10.2 Gm Hfa.aer.ad, 2 PUFF INH BID PRN for WHEN OUT OF ADVAIR, (Reported) Carbamazepine 200 Mg Tablet, 200 MG PO 0300,0800,2300, (Reported) Carbamazepine 200 Mg Tablet, 400 MG PO 1500, (Reported) TAKES 2 (200 MG) TABLETS Cefdinir 300 Mg Capsule, 300 MG PO BID Prescribed by: BALBIR LARA on 06/25/19 0825 Fluticasone/Salmeterol 12 Gm Hfa.aer.ad, 1 PUFF IH BID, (Reported) Gabapentin 300 Mg Capsule, 300 MG PO 2300, (Reported) Gabapentin 600 Mg Tablet, 600 MG PO 0800,1500, (Reported) Hydrocodone/Acetaminophen 1 Each Tablet, 1 TAB PO Q6H PRN for PAIN-MODERATE (5- 7), (Reported) Lamotrigine 25 Mg Tablet, 25 MG PO 0300, 1500, (Reported) TAKES 25MG @ 0300 25MG + 100MG @1500 Lamotrigine 100 Mg Tablet, 100 MG PO 1500,2300, (Reported) LAST FILLED 03-25-2019 #60/30 DAY SUPPLY PT TAKES 100MG AT 1500 & 2300 Meloxicam 7.5 Mg Tablet, 15 MG PO 1500, (Reported) Mupirocin 22 Gm Oint...g., 1 APPFUL TOP BID PRN for SKIN IRRITATION, (Reported) Omeprazole 20 Mg Capsule.dr, 20 MG PO DAILY PRN for HEARTBURN, (Reported) Phenytoin Sodium Extended 100 Mg Capsule, 200 MG PO 0800,1500, (Reported) TAKES 2 (100 MG) CAPSULES Phenytoin Sodium Extended 100 Mg Capsule, 100 MG PO 2300, (Reported) Prednisone 10 Mg Tab, 10 MG PO DAILY, (Reported) Ropinirole HCl 0.5 Mg Tablet, 0.5 MG PO 1500, (Reported) Tiotropium [place] 1 Inh Aerp, 1 CAP IH 1500, (Reported) Zinc Oxide 28 Gm Oint, 0 GM TOP NEEDED PRN for RASH Prescribed by: BALBIR LARA on 06/25/19 0825 Past Bgmtavd-Rcrvzo-Bmehmq Hx Past Med/Social Hx: Reviewed Nursing Past Med/Soc Hx Patient Social History Alcohol Use: Rarely Uses Recreational Drug Use: Yes (not current, 15 years ago-ETOH and PO drugs) Drug of Choice: HX OF RX DRUG ABUSE, CLAIMS NONE 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 Smoking Status: Current Everyday Smoker Type Used: Cigars, Cigarettes Former Smoker, Quit: Jan 29, 2017 2nd Hand Smoke Exposure: No Recent Foreign Travel: No Contact w/Someone Who Travel: No Recent Infectious Disease Expo: No Recent Hopitalizations: No Immunizations Up To Date Tetanus Booster (TDap): Less than 5yrs PED Vaccines UTD: Yes Date of Influenza Vaccine: Apr 21, 2018 Seasonal Allergies Seasonal Allergies: Yes Past Medical History Surgeries: Yes Eye Surgery, Gallbladder Respiratory: Yes Asthma, Pneumonia, Chronic Bronchitis, Sleep Apnea, COPD Currently Using CPAP: No Currently Using BIPAP: No Cardiac: Yes Heart Murmur, High Cholesterol, Hypertension, Valvular Heart Disease 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) Neuropathy, Seizure Disorder, Vertigo Reproductive Disorders: No Sexually Transmitted Disease: No HIV/AIDS: No Genitourinary: No Gastrointestinal: Yes (CHRONIC NAUSEA/VOMITING) Musculoskeletal: Yes (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 Review of Systems Time Seen by Provider: 06:35 Sepsis Event Evaluation Height, Weight, BMI Height: 6'0" Weight: 174lbs. 3.0oz. 79.789030zl; 25.00 BMI Method:Stated Exam Exam Vital Signs Date Time Temp Pulse Resp B/P (MAP) Pulse Ox O2 Delivery O2 Flow Rate FiO2 07/23/19 06:07 36.6 83 22 144/79 (100) 97 Vapotherm 40.00 60.00 07/23/19 04:00 36.6 83 22 144/79 (100) 97 Vapotherm 40.00 60.00 07/23/19 02:39 Vapotherm 40.00 60 07/23/19 02:09 37.2 101 20 121/73 (89) 96 07/23/19 01:50 37.2 07/23/19 01:45 38.2 99 22 125/65 (120) 98 Vapotherm 4.00 07/23/19 01:20 38.2 07/23/19 01:15 Vapotherm 40.00 60 07/23/19 00:30 93 Nasal Cannula 4.00 07/23/19 00:02 38.2 104 22 153/103 (120) 97 Nasal Cannula 4.00 07/23/19 00:02 97 Nasal Cannula 4.00 I & O 07/23/19 07:00 Intake Total 1020 ml Balance 1020 ml Height & Weight Height: 6'0" Weight: 174lbs. 3.0oz. 79.537672lb; 25.00 BMI Method:Stated General Appearance: WD/WN, Chronically ill, Mild Distress HEENT: PERRL/EOMI, Pharynx Normal Neck: Non Tender, Supple Respiratory: Accessory Muscle Use, Decreased Breath Sounds, Expiration, Wheezing Cardiovascular: No Murmur, Tachycardia Capillary Refill: Less Than 3 Seconds Extremity: Non Tender, Other (splint to left lower extremity with obvious deformity of the foot laterally rotated. This is how it is splinted. States that he was seen by orthopedics and they're watching it for healing. Last appointment or 6 weeks ago and he is due again but hasn't been able to get out) Neurologic/Psychiatric: Alert, Oriented x3 Results Lab Laboratory Tests 07/23/19 00:09 Assessment/Plan Assessment/Plan Basilar bilateral pneumonia -Continue Cefepime, add Vanco -Await noriega cultures COPDAE -Duoneb -Solumedrol hx Metastatic Lung Cancer RANI PACHECO DO Jul 23, 2019 06:30
--- NOTE | 2019-07-23 06:40 | NUR ---
PTD VANCOMYCIN LABS: SCR 0.64 PLAN: PER PREVIOUS HISTORY OF VANCOMYCIN USE 1500MG BID OBTAINED A LEVEL OF 11. WE WILL DOSE WITH A LOADING DOSE OF 2,000 MG AND THEN 1,750MG IV Q 12 HOURS, SHOULD GET A LEVEL CLOSER TO 15. WILL MONITOR SCR/RENAL FXN CLOSELY AND CHECK TROUGH LEVEL ON 07/23 @ 1800 HOLDING IF LEVEL IS GREATER THAN 20.
[2019-07-23] MEDS ORDERED: PHARMACY TO DOSE IV SCH (06:45)
--- NOTE | 2019-07-23 06:51 | Diagnostic Imaging Report ---
INDICATION: Shortness of breath and cough. FINDINGS: The heart size is normal. There are bibasal infiltrates. There is no pneumothorax. Mediastinum is unremarkable. [id number] catheter overlies right hemithorax. IMPRESSION: Bibasal pulmonary infiltrates. Dictated by: Dictated on workstation # [id number]
[2019-07-23] MEDS ORDERED: VANCOMYCIN 2000 MG/NS 500 ML IVPB IV NR ×2 (07:00)
[2019-07-23] MEDS: NYSTATIN CREAM (MYCOSTATIN) 30 GM TUBE TP SCH ×3 (09:42→19:50)
[2019-07-23] MEDS: CEFEPIME 2,000 MG/SWFI 20 ML IV PUSH IV SCH ×4 (09:43→19:50)
[2019-07-23 10:00] LABS: BILIRUBIN,URINE NEGATIVE (NEGATIVE); CLARITY,URINE CLEAR; COLOR,URINE YELLOW; GLUCOSE, URINE (UA) NEGATIVE (NEGATIVE); KETONES,URINE NEGATIVE (NEGATIVE); LEUKOCYTE ESTERASE ,URINE NEGATIVE (NEGATIVE); NITRITE,URINE NEGATIVE (NEGATIVE); PROTEIN,URINE NEGATIVE (NEGATIVE)
--- NOTE | 2019-07-23 10:08 | NUR ---
SPOKE WITH THE PT, WENT THRU THE EXT MED HISTORY, AND SPOKE WITH [facility] AND DR MARTÍNEZ OFFICE TO COMPLETE THE MED REC PT HAS BEEN HERE MULTIPLE TIMES OVER THE PAST FEW MONTHS AND I HAVE COMPLETED THE MED REC EACH TIME. THE PT AND I WENT THRU THE EXT MED HISTORY ( WELL MY NOTES FROM PREVIOUS VISITS). CARBAMAZEPINE 200MG: THE DIRECTIONS PER DIVYA 2 TABS AM, 2 TABS PM AND 2 TABS HS- HOWEVER THE PT TAKES 1 TAB 0300, 1 TAB 0800, 2 TABS 1500 & 1 TAB 2300 LAMOTRIGINE 100MG- THIS WAS LAST FILLED ON 03-25-2019 #60/30DS- I CALLED DR MARTÍNEZ OFFICE TO VERIFY THIS IS STILL AN ACTIVE RX. THE OFFICE DID SHOW HE WAS STILL TAKING AND THE LAST RX WAS SENT TO [facility]. THE PT SAYS HE STILL HAS SOME AND IS NOT SURE HOW HE ISNT OUT OF MEDICATIONS- I DID DOCUMENT ON THE MED REC THE PAST DUE FILL DATE ATORVASTATIN 20MG- THE DIRECTIONS ARE 1 TAB HS- HOWEVER FROM A PAST APPT HE WAS TOLD TO ONLY TAKE A TAB DAILY. OTC MEDS: TYLENOL
[2019-07-23 10:12] LABS: BACTERIA,URINE NEGATIVE /HPF; WBC,URINE RARE /HPF
--- NOTE | 2019-07-23 10:15 | NUR ---
Pt lives at home with his Significant Other Tabatha who is his primary caregiver as well as her daughter. They are both [employer]GER [employer]'s and provide 24 hour care. Pt is wanting a wheelchair ramp which would greatly assist him in being able to go to physician's office and keep appts as well as getting him out of the house. Currently plans are approved for ramp installation. Will follow and assist in continued care plans.
[2019-07-23] MEDS ORDERED: PANTOPRAZOLE 40 MG (PROTONIX) TAB PO NR (10:45)
[2019-07-23] MEDS ORDERED: HYDROcodone/APAP 7.5 MG/325 MG (LORTAB, LORCET PLUS) TABLET PO PRN (10:45)
[2019-07-23] MEDS ORDERED: ZINC OXIDE 16% OINT (BUTT PASTE) 113 GM TUBE TOP PRN (10:45)
[2019-07-23] MEDS: GABAPENTIN 600 MG (NEURONTIN) TAB PO SCH ×2 (11:09→15:49)
[2019-07-23] MEDS: lamoTRIgine 25 MG (LaMICtal) TAB PO SCH ×2 (11:09→19:50)
[2019-07-23] MEDS: PHENYTOIN 100 MG (DILANTIN) CAP PO SCH ×3 (11:10→23:40)
[2019-07-23] MEDS: ENOXAPARIN 40 MG/0.4 ML (LOVENOX) SYR SC SCH (11:10)
[2019-07-23] MEDS: carBAMazepine 200 MG (TEGretol) TAB PO SCH ×3 (11:12→23:41)
[2019-07-23] MEDS ORDERED: amLODIPine 5 MG (NORVASC) TAB PO NR (12:30)
--- NOTE | 2019-07-23 12:30 | History & Physical ---
History of Present Illness History of Present Illness Reason for visit/HPI This is a 64 year old male with severe COPD and a history of Metastatic Lung Cancer. He has had numerous admissions for pneumonia and COPD exacerbations. He continues to smoke. He suffered a left tib/fib fracture about 6 weeks ago and has been nonambulatory since. He has not left his house and stated he was doing well until last night when he had the sudden onset of cough and shortness of air. He was febrile in the emergency room with respiratory distress. He was found to have bilateral lower lobe pneumonia. He was placed on Vapotherm, given nebulizer treatments as well as IV Cefepime and IV solumedrol and was admitted to the medical floor with pulmonary consult. Date of Admission Jul 23, 2019 at 01:13 Date Seen by a Provider: Jul 23, 2019 Time Seen by a Provider: 10:30 I consulted on this patient on 07/23/19 12:25 Attending Physician Myrna Lui DO Admitting Physician Micky Feng DO Consult Allergies and Home Medications Allergies Coded Allergies: aspirin (Unverified Allergy, Mild, DOES NOT WORK WELL W/ OTHER MEDS, 07/23/19) ibuprofen (Unverified Allergy, Mild, 07/23/19) Home Medications Acetaminophen 500 Mg Tablet, 1,000 MG PO Q8H PRN for PAIN-MILD (1-4), (Reported) Albuterol Sulfate 2.5 Mg/3 Ml Vial.neb, 2.5 MG NEB Q4H PRN for SHORTNESS OF BREATH, (Reported) Albuterol Sulfate 1 Puff Puff, 2 PUFF IH Q6H PRN for SHORTNESS OF BREATH, (Reported) Amlodipine Besylate 5 Mg Tablet, 5 MG PO 0800, (Reported) Atorvastatin Calcium 20 Mg Tablet, 10 MG PO 0300, (Reported) TAKES OF A 20MG ONCE DAILY Budesonide/Formoterol Fumarate 10.2 Gm Hfa.aer.ad, 2 PUFF INH BID PRN for WHEN OUT OF ADVAIR, (Reported) Carbamazepine 200 Mg Tablet, 200 MG PO 0300,0800,2300, (Reported) Carbamazepine 200 Mg Tablet, 400 MG PO 1500, (Reported) TAKES 2 (200 MG) TABLETS Fluticasone/Salmeterol 12 Gm Hfa.aer.ad, 1 PUFF IH BID, (Reported) Gabapentin 300 Mg Capsule, 300 MG PO 2300, (Reported) Gabapentin 600 Mg Tablet, 600 MG PO 0800,1500, (Reported) Hydrocodone/Acetaminophen 1 Each Tablet, 1 TAB PO Q6H PRN for PAIN-MODERATE (5- 7), (Reported) Lamotrigine 25 Mg Tablet, 25 MG PO 0300, 1500, (Reported) TAKES 25MG @ 0300 25MG + 100MG @1500 Lamotrigine 100 Mg Tablet, 100 MG PO 1500,2300, (Reported) LAST FILLED 03-25-2019 #60/30 DAY SUPPLY PT TAKES 100MG AT 1500 & 2300 Meloxicam 7.5 Mg Tablet, 15 MG PO 1500, (Reported) Omeprazole 20 Mg Capsule.dr, 20 MG PO DAILY PRN for HEARTBURN, (Reported) Phenytoin Sodium Extended 100 Mg Capsule, 200 MG PO 0800,1500, (Reported) TAKES 2 (100 MG) CAPSULES Phenytoin Sodium Extended 100 Mg Capsule, 100 MG PO 2300, (Reported) Ropinirole HCl 0.5 Mg Tablet, 0.5 MG PO 1500, (Reported) Tiotropium [place] 1 Inh Aerp, 1 CAP IH 1500, (Reported) Zinc Oxide 28 Gm Oint, 0 GM TOP NEEDED PRN for RASH Prescribed by: BALBIR LARA on 06/25/19 0825 Patient Home Medication List Home Medication List Reviewed: Yes Past Cgqdijw-Mkzuxq-Ajcleu Hx Past Med/Social Hx: Reviewed Nursing Past Med/Soc Hx Patient Social History Alcohol Use: Rarely Uses Recreational Drug Use: Yes (not current, 15 years ago-ETOH and PO drugs) Drug of Choice: HX OF RX DRUG ABUSE, CLAIMS NONE 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 Smoking Status: Current Everyday Smoker Former Smoker, Quit: Jan 29, 2017 Type Used: Cigars, Cigarettes 2nd Hand Smoke Exposure: No Recent Foreign Travel: No Contact w/other who traveled: No Recent Hopitalizations: No Recent Infectious Disease Expo: No Immunizations Up To Date Tetanus Booster (TDap): Less than 5yrs Pediatric: Yes Date of Influenza Vaccine: Apr 21, 2018 Seasonal Allergies Seasonal Allergies: Yes Past Medical History Surgeries: Eye Surgery, Gallbladder Respiratory: COPD, Emphysema, Pneumonia Currently Using CPAP: No Currently Using BIPAP: No Cardiac: Heart Murmur, High Cholesterol, Hypertension, Valvular Heart Disease Neurological: Neuropathy, Seizure Disorder, Vertigo Reproductive: No Sexually Transmitted Disease: No HIV/AIDS: No Musculoskeletal: Arthritis, Fractures Loss of Vision: Denies Hearing Impairment: Denies Cancer: Bone, Lung Did You Recieve Any Treatments: Yes What Type of Treatment Did You: Chemotherapy History of Blood Disorders: No Adverse Reaction to Blood [place]o: No Family History Reviewed Nursing Family Hx Diabetes mellitus 19 MOTHER Hypercholesterolemia 19 FATHER Hypertension 19 FATHER Heart Disease Limited to records review due to clinical condition. Review of Systems Constitutional: diaphoresis, fever, weakness EENTM: nose congestion Respiratory: cough, dyspnea on exertion, short of breath Cardiovascular: No no symptoms reported, No see HPI, No chest pain, No edema, No Hx of Intervention, No palpitations, No syncope, No vascular heart diseas, No other Gastrointestinal: constipation Genitourinary: No no symptoms reported, No see HPI, No decreased output, No discharge, No dysuria, No frequency, No hematuria, No hesitancy, No in continence, No nocturia, No pain, No other Musculoskeletal: joint pain (left tib/fib fracture) Skin: rash (erythema to area) Psychiatric/Neurological: Weakness Physical Exam Vital Signs Vital Signs - First Documented 07/23/19 07/23/19 00:02 01:15 Temp 38.2 Pulse 104 Resp 22 B/P (MAP) 153/103 (120) Pulse Ox 97 O2 Delivery Nasal Cannula O2 Flow Rate 4.00 FiO2 60 Capillary Refill : Less Than 3 Seconds Height, Weight, BMI Height: 6'0" Weight: 174lbs. 3.0oz. 79.742793ac; 25.00 BMI Method:Stated General Appearance: Mild Distress HEENT: Normal ENT Inspection Neck: Supple Respiratory: Decreased Breath Sounds, Rales, Rhonci Cardiovascular: Regular Rate, Rhythm, Systolic Murmur, Gallop/S4 Gastrointestinal: Normal Bowel Sounds, Non Tender, Soft Back: No CVA Tenderness Extremity: Non Tender, No Calf Tenderness, No Pedal Edema, Other (left LE with splint in place) Neurologic/Psychiatric: Alert, Oriented x3 Skin: Warm/Dry Comments Laboratory Tests 07/23/19 00:09: White Blood Count 16.1H, Red Blood Count 4.07L, Hemoglobin 11.5L, Hematocrit 35L , Mean Corpuscular Volume 87, Mean Corpuscular Hemoglobin 28, Mean Corpuscular Hemoglobin Concent 33, Red Cell Distribution Width 15.3H, Platelet Count 309, Mean Platelet Volume 8.4, Neutrophils (%) (Auto) 82H, Lymphocytes (%) (Auto) 5L, Monocytes (%) (Auto) 12, Eosinophils (%) (Auto) 0, Basophils (%) (Auto) 0, Neutrophils # (Auto) 13.3H, Lymphocytes # (Auto) 0.9L, Monocytes # (Auto) 2.0H, Eosinophils # (Auto) 0.0, Basophils # (Auto) 0.0, Neutrophils % (Manual) 84, Lymphocytes % (Manual) 5, Monocytes % (Manual) 11, Blood Morphology Comment NORMAL, Prothrombin Time 12.7, INR Comment 0.9, Activated Partial Thromboplast Time 39H, Sodium Level 128L, Potassium Level 4.1, Chloride Level 91L, Carbon Dioxide Level 26, Anion Gap 11, Blood Urea Nitrogen 6L, Creatinine 0.64, Estimat Glomerular Filtration Rate > 60, BUN/Creatinine Ratio 9, Glucose Level 121H, Lactic Acid Level 0.90, Calcium Level 8.7, Corrected Calcium 8.9, Total Bilirubin 0.2, Aspartate Amino Transf (AST/SGOT) 14, Alanine Aminotransferase (ALT/SGPT) 10, Alkaline Phosphatase 182H, Total Protein 6.9, Albumin 3.7 07/23/19 00:22: Blood Gas Puncture Site RIGHT RADIAL, Blood Gas Patient Temperature 38.2, Arterial Blood pH 7.41, Arterial Blood Partial Pressure CO2 52H, Arterial Blood Partial Pressure O2 78L, Arterial Blood HCO3 33H, Arterial Blood Total CO2 34.8H , Arterial Blood Oxygen Saturation 95, Arterial Blood Base Excess 8.2H, Johan Test POSITIVE, Blood Gas Ventilator Setting NO, Blood Gas Inspired Oxygen 4 07/23/19 09:15: Urine Color YELLOW, Urine Clarity CLEAR, Urine pH 7.0, Urine Specific [place] 1.010L, Urine Protein NEGATIVE, Urine Glucose (UA) NEGATIVE, Urine Ketones NEGATIVE, Urine Nitrite NEGATIVE, Urine Bilirubin NEGATIVE, Urine Urobilinogen 0.2, Urine Leukocyte Esterase NEGATIVE, Urine RBC (Auto) NEGATIVE, Urine RBC NONE, Urine WBC RARE, Urine Squamous Epithelial Cells 2-5, Urine Crystals NONE, Urine Bacteria NEGATIVE, Urine Casts NONE, Urine Mucus NEGATIVE, Urine Culture Indicated CULTURE PENDING Microbiology 07/23/19 Influenza Types A,B Antigen (VY) - Final, Complete Assessment/Plan Assessment and Plan 1. Acute Bibasilar Pneumonia--continue Cefepime and Vancomycin 2. Acute Respiratory Distress with Acute Exacerbation of COPD--on Vapotherm, on IV solumedrol, SVNS with raven, pulmonology consulted 3. Seizure Disorder--resumed home antiseizure meds 4. Hypertension--resume home meds 5. Left Tib/Fib Fracture--in splint and is supposed to see ortho next week 6. Metastatic Lung Cancer--follows with oncology Admission Diagnosis Admission Status: Inpatient Order (span 2 midnights) Reason for Inpatient Admission: Will need at least 48hrs of IV abx and IV steroids Clinical Quality Measures DVT/VTE Risk/Contraindication: Risk Factor Score Per Nursin RFS Level Per Nursing on Admit: 4+=Very High MYRNA LUI DO Jul 23, 2019 12:30
[2019-07-23] MEDS: UMECLIDINIUM BROMIDE (INCRUSE ELLIPTA) 7'S IH SCH (14:31)
--- NOTE | 2019-07-23 15:08 | Physician Query Clarification ---
PQ-Intro New Diagnosis Admission/Discharge Admission Date: Jul 23, 2019 at 01:13 Discharge Date: The medical record reflects the following clinical scenario: History/Risk Factors: Bilateral pneumonia COPD exacerbation History lung cancer Clinical Findings: WBC 16.1, T 38.2, P 104, Resp 22, BP 153/103, Lactic acid 0.90. Treatment: Sepsis protocol ordered in ED by Dr. Jang. Patient given Cefepime injection 2,000mg. and vapotherm. Question: What condition best reflects the above clinical scenario? Please document a response in the Progress Noter or Discharge Summary. 1. Sepsis with pneumonia. 2. Pneumonia without sepsis. 3. Other, with explanation of the clinical findings. 4. Clinically undetermined, no explanation for the clinical findings. PHYSICIAN RESPONSE What condition reflects above: 2 Please remember a lack of response to the above will prompt a phone page by [facility]/Coding staff. In responding to this query, please exercise your independent professional judgment. The purpose of this communication is to more accurately reflect the complexity of your patients condition. The fact that a question is asked does not imply that any particular answer is desired or expected. Thank you for your timely response to this clarification. Requestors name: Lilliam Menchaca [facility] Phone # ext [phone] or [phone] THIS PHYSICIAN QUERY FORM IS A PERMANENT PART OF THE MEDICAL RECORD LILLIAM MENCHACA Jul 23, 2019 15:08 MYRNA MERCADO DO Jul 27, 2019 11:53
[2019-07-23] MEDS: rOPINIRole 0.25 MG (REQUIP) TAB PO SCH (15:49)
--- NOTE | 2019-07-23 16:29 | NUR ---
Pastoral care visit.
[2019-07-23] MEDS: ADVAIR HFA 115/21 MCG INHALER 8 GM IH SCH (18:17)
[2019-07-23] MEDS: VANCOMYCIN 1,750 MG/NS 500 ML IVPB IV SCH ×2 (18:53)
[2019-07-23] MEDS: ACETAMINOPHEN 500 MG TAB (TYLENOL) PO PRN (18:55)
[2019-07-23] MEDS: GABAPENTIN 300 MG (NEURONTIN) CAP PO SCH (23:41)
[2019-07-24] VITALS: BP 175/79
[2019-07-24] MEDS: carBAMazepine 200 MG (TEGretol) TAB PO SCH ×4 (03:38→23:46)
[2019-07-24 03:54] LABS: BASOPHILS % (AUTO) 0 % (0-10); EOSINOPHILS % (AUTO) 0 % (0-10); HEMATOCRIT 34 % (40-54); HEMOGLOBIN 10.9 G/DL (13.3-17.7); LYMPHOCYTES # (AUTO) 0.4 X 10^3 (1.0-4.0); LYMPHOCYTES % (AUTO) 6 % (12-44); MEAN CORPUSCULAR HEMOGLOBIN 28 PG (25-34); MEAN CORPUSCULAR HGB CONC 32 G/DL (32-36); MEAN CORPUSCULAR VOLUME 88 FL (80-99); MEAN PLATELET VOLUME 8.7 FL (7.4-10.4); MONOCYTES # (AUTO) 0.5 X 10^3 (0.0-1.0); MONOCYTES % (AUTO) 8 % (0-12); NEUTROPHILS # (AUTO) 5.8 X 10^3 (1.8-7.8); NEUTROPHILS % (AUTO) 86 % (42-75); PLATELET COUNT 288 10^3/uL (130-400); RED CELL DISTRIBUTION WIDTH 15.2 % (10.0-14.5); WHITE BLOOD COUNT 6.7 10^3/uL (4.3-11.0)
[2019-07-24 04:27] LABS: ALBUMIN 3.6 GM/DL (3.2-4.5); CHLORIDE 96 MMOL/L (98-107); POTASSIUM 4.6 MMOL/L (3.6-5.0); SODIUM 135 MMOL/L (135-145)
[2019-07-24 04:28] LABS: CALCIUM 9.2 MG/DL (8.5-10.1)
[2019-07-24 04:29] LABS: GLUCOSE 149 MG/DL (70-105); TOTAL PROTEIN 6.7 GM/DL (6.4-8.2)
[2019-07-24 04:30] LABS: CARBON DIOXIDE 29 MMOL/L (21-32)
[2019-07-24 04:31] LABS: BILIRUBIN,TOTAL 0.2 MG/DL (0.1-1.0)
[2019-07-24 04:33] LABS: ALKALINE PHOSPHATASE 156 U/L (40-136); GFR ESTIMATED > 60
[2019-07-24 04:34] LABS: BUN/CREATININE RATIO 13
[2019-07-24 04:36] LABS: ALANINE AMINOTRANSFERASE 10 U/L (0-55)
[2019-07-24] MEDS: LACTATED RINGERS 1,000 ML IV SCH (04:45)
[2019-07-24 04:52] VITALS: BP 141/72
[2019-07-24] MEDS: methylPREDNISolone 40 MG/ML (Solu-MEDROL) VIAL IV SCH ×4 (06:32→23:46)
[2019-07-24] MEDS: VANCOMYCIN 1,750 MG/NS 500 ML IVPB IV SCH ×4 (06:32→19:24)
[2019-07-24] MEDS: ADVAIR HFA 115/21 MCG INHALER 8 GM IH SCH ×2 (07:15→18:33)
[2019-07-24 08:00] VITALS: BP 170/83
[2019-07-24] MEDS: PHENYTOIN 100 MG (DILANTIN) CAP PO SCH ×3 (08:31→23:46)
[2019-07-24] MEDS: amLODIPine 5 MG (NORVASC) TAB PO SCH (08:33)
[2019-07-24] MEDS: CEFEPIME 2,000 MG/SWFI 20 ML IV PUSH IV SCH ×4 (08:33→21:13)
[2019-07-24] MEDS: PANTOPRAZOLE 40 MG (PROTONIX) TAB PO SCH (08:34)
[2019-07-24] MEDS: GABAPENTIN 600 MG (NEURONTIN) TAB PO SCH ×2 (08:46→15:01)
[2019-07-24] MEDS: lamoTRIgine 25 MG (LaMICtal) TAB PO SCH ×2 (08:46→21:00)
[2019-07-24] MEDS: NYSTATIN CREAM (MYCOSTATIN) 30 GM TUBE TP SCH ×3 (08:47→21:01)
--- NOTE | 2019-07-24 10:46 | Progress Note - Hospitalist ---
Subjective HPI/CC On Admission Date Seen by Provider: Jul 24, 2019 Time Seen by Provider: 10:42 Subjective/Events-last exam Pt reports feeling better from a breathing standpoint. Has neck pain. Has a history of a neck fracture. No other complaints. Focused Exam Lactate Level 07/23/19 00:09: Lactic Acid Level 0.90 Objective Exam Vital Signs Vital Signs Date Time Temp Pulse Resp B/P (MAP) Pulse Ox O2 Delivery O2 Flow Rate FiO2 07/24/19 08:00 36.8 69 18 170/83 (112) 95 High Flow N/C 5.00 07/23/19 14:32 40 Capillary Refill : Less Than 3 SecondsLess Than 3 Seconds General Appearance: No Apparent Distress Neck: Normal Inspection, Non Tender Respiratory: No Accessory Muscle Use, Decreased Breath Sounds, Other (on 4lpm) Cardiovascular: Regular Rate, Rhythm, No Murmur Neurologic/Psychiatric: Alert, Oriented x3 Results/Procedures Lab Laboratory Tests 07/24/19 03:45 Patient resulted labs reviewed. Assessment/Plan Assessment and Plan Assess & Plan/Chief Complaint 1. Acute Bibasilar Pneumonia--continue Cefepime and Vancomycin, leukocytosis resolved 2. Acute Respiratory Distress with Acute Exacerbation of COPD-- now on baseline 4lpm NC, on IV solumedrol, SVNS with duoneb, Continue Advair, pulmonology consu lted, appreciate recs 3. Seizure Disorder--cont home antiseizure meds 4. Hypertension--cont home meds 5. Left Tib/Fib Fracture--in splint and is supposed to see ortho next week 6. Metastatic Lung Cancer--follows with oncology 7. Neck pain-- no neurological symptoms, nontender, will get XRay 8. DVT ppx-- lovenox Clinical Quality Measures DVT/VTE Risk/Contraindication: Risk Factor Score Per Nursin RFS Level Per Nursing on Admit: 4+=Very High YUKI OWUSU MD Jul 24, 2019 10:46
[2019-07-24] MEDS: ENOXAPARIN 40 MG/0.4 ML (LOVENOX) SYR SC SCH (11:21)
[2019-07-24 11:53] VITALS: BP 150/83
[2019-07-24] MEDS: ACETAMINOPHEN 500 MG TAB (TYLENOL) PO PRN ×2 (11:54→17:52)
[2019-07-24] MEDS: UMECLIDINIUM BROMIDE (INCRUSE ELLIPTA) 7'S IH SCH (14:07)
--- NOTE | 2019-07-24 14:12 | Diagnostic Imaging Report ---
EXAM: CERVICAL SPINE 3 VIEWS OR LESS INDICATION: Right-sided neck pain. COMPARISON: CT cervical spine without contrast 02/18/2019. FINDINGS: Distracted type III odontoid fracture appears similar in alignment to 02/18/2019. Stable grade 1 anterolisthesis of C3 on C4, C4 on C5. Moderate to advanced diffuse degenerative endplate changes have likely progressed at C3-C4. Prevertebral soft tissues are unremarkable. Right IJ tunneled port CVC. IMPRESSION: 1. Distracted type III odontoid fracture appears similar in alignment to the prior cervical spine CT from 02/18/2019. This could be better evaluated with CT. 2. Advanced spondylotic changes in the cervical spine have likely progressed at the C3-C4 level where there is also grade 1 anterolisthesis. Dictated by: Dictated on workstation # [id number]
[2019-07-24] MEDS: rOPINIRole 0.25 MG (REQUIP) TAB PO SCH (15:01)
[2019-07-24 15:25] VITALS: BP 155/81
[2019-07-24] MEDS ORDERED: TROUGH ORDER-PHARMACY XX ONE (18:00)
[2019-07-24 19:12] VITALS: BP 166/83
[2019-07-24] MEDS: GABAPENTIN 300 MG (NEURONTIN) CAP PO SCH (23:46)
[2019-07-25 00:38] VITALS: BP 157/77
[2019-07-25] MEDS: ACETAMINOPHEN 500 MG TAB (TYLENOL) PO PRN ×3 (02:26→21:24)
[2019-07-25] MEDS: carBAMazepine 200 MG (TEGretol) TAB PO SCH ×4 (03:56→23:26)
[2019-07-25 04:00] VITALS: BP 166/74
[2019-07-25 06:13] LABS: HEMOGLOBIN 10.6 G/DL (13.3-17.7); MEAN PLATELET VOLUME 8.6 FL (7.4-10.4); RED CELL DISTRIBUTION WIDTH 15.1 % (10.0-14.5); WHITE BLOOD COUNT 6.2 10^3/uL (4.3-11.0)
[2019-07-25 06:25] LABS: BUN/CREATININE RATIO 10; CALCIUM 8.8 MG/DL (8.5-10.1); CARBON DIOXIDE 31 MMOL/L (21-32); CHLORIDE 93 MMOL/L (98-107); CREATININE SERUM 0.63 MG/DL (0.60-1.30); GFR ESTIMATED > 60; GLUCOSE 127 MG/DL (70-105); POTASSIUM 4.4 MMOL/L (3.6-5.0); SODIUM 132 MMOL/L (135-145)
[2019-07-25] MEDS: methylPREDNISolone 40 MG/ML (Solu-MEDROL) VIAL IV SCH ×2 (06:31→11:22)
[2019-07-25] MEDS: VANCOMYCIN 1,750 MG/NS 500 ML IVPB IV SCH ×2 (06:31)
[2019-07-25] MEDS: ADVAIR HFA 115/21 MCG INHALER 8 GM IH SCH ×2 (06:55→17:56)
[2019-07-25 08:00] VITALS: BP 162/83
[2019-07-25] MEDS: lamoTRIgine 25 MG (LaMICtal) TAB PO SCH ×2 (08:34→20:39)
[2019-07-25] MEDS: PHENYTOIN 100 MG (DILANTIN) CAP PO SCH ×3 (08:34→23:26)
[2019-07-25] MEDS: PANTOPRAZOLE 40 MG (PROTONIX) TAB PO SCH (08:34)
[2019-07-25] MEDS: GABAPENTIN 600 MG (NEURONTIN) TAB PO SCH ×2 (08:34→14:31)
[2019-07-25] MEDS: amLODIPine 5 MG (NORVASC) TAB PO SCH (08:34)
[2019-07-25] MEDS: CEFEPIME 2,000 MG/SWFI 20 ML IV PUSH IV SCH ×4 (08:35→20:39)
[2019-07-25] MEDS: NYSTATIN CREAM (MYCOSTATIN) 30 GM TUBE TP SCH ×3 (08:35→20:40)
[2019-07-25] MEDS: ENOXAPARIN 40 MG/0.4 ML (LOVENOX) SYR SC SCH (11:22)
[2019-07-25 12:00] VITALS: BP 162/83
--- NOTE | 2019-07-25 12:07 | Progress Note - Hospitalist ---
Subjective HPI/CC On Admission Date Seen by Provider: Jul 25, 2019 Time Seen by Provider: 12:05 Subjective/Events-last exam Pt reports doing well. No new complaints. Focused Exam Lactate Level 07/23/19 00:09: Lactic Acid Level 0.90 Objective Exam Vital Signs Vital Signs Date Time Temp Pulse Resp B/P (MAP) Pulse Ox O2 Delivery O2 Flow Rate FiO2 07/25/19 08:00 36.6 73 18 162/83 (109) 94 High Flow N/C 5.00 07/23/19 14:32 40 Capillary Refill : Less Than 3 SecondsLess Than 3 Seconds General Appearance: No Apparent Distress, Chronically ill Respiratory: Lungs Clear, No Respiratory Distress Cardiovascular: Regular Rate, Rhythm, No Murmur Gastrointestinal: Normal Bowel Sounds, Non Tender, Soft Neurologic/Psychiatric: Alert, Oriented x3 Results/Procedures Lab Laboratory Tests 07/25/19 05:50 Patient resulted labs reviewed. Assessment/Plan Assessment and Plan Assess & Plan/Chief Complaint 1. Acute Bibasilar Pneumonia--continue Cefepime and DC Vancomycin, leukocytosis resolved, doing well 2. Acute Respiratory Distress with Acute Exacerbation of COPD-- now on baseline 4lpm NC, on IV solumedrol switch to prednisone, SVNS with duoneb, Continue Advair, pulmonology consulted, appreciate recs 3. Seizure Disorder--cont home antiseizure meds 4. Hypertension--cont home meds 5. Left Tib/Fib Fracture--in splint and is supposed to see ortho next week 6. Metastatic Lung Cancer--follows with oncology 7. Neck pain-- no neurological symptoms, XR shows old unchanged fracture 8. DVT ppx-- lovenox Clinical Quality Measures DVT/VTE Risk/Contraindication: Risk Factor Score Per Nursin RFS Level Per Nursing on Admit: 4+=Very High YUKI OWUSU MD Jul 25, 2019 12:07
[2019-07-25] MEDS: UMECLIDINIUM BROMIDE (INCRUSE ELLIPTA) 7'S IH SCH (14:04)
[2019-07-25 16:09] VITALS: BP 157/91
[2019-07-25 19:33] VITALS: BP 159/85
[2019-07-25] MEDS ORDERED: rOPINIRole 0.25 MG (REQUIP) TAB PO SCH (21:00)
[2019-07-25] MEDS: GABAPENTIN 300 MG (NEURONTIN) CAP PO SCH (23:26)
[2019-07-26 00:05] VITALS: BP 159/78
[2019-07-26 03:50] VITALS: BP 156/83
[2019-07-26] MEDS: carBAMazepine 200 MG (TEGretol) TAB PO SCH ×2 (03:52→09:07)
[2019-07-26] MEDS: ACETAMINOPHEN 500 MG TAB (TYLENOL) PO PRN ×2 (03:53→10:02)
--- NOTE | 2019-07-26 06:23 | Pulmonary Progress Note ---
Subjective Date Seen by a Provider: Jul 26, 2019 Time Seen by a Provider: 06:18 Subjective/Events-last exam Pt appears to be doing better. Sepsis Event Evaluation Height, Weight, BMI Height: 6'0" Weight: 174lbs. 3.0oz. 79.915040mc; 25.00 BMI Method:Stated Exam Exam Vital Signs Date Time Temp Pulse Resp B/P (MAP) Pulse Ox O2 Delivery O2 Flow Rate FiO2 07/26/19 03:50 36.4 63 18 156/83 (107) 97 High Flow N/C 4.00 07/26/19 00:05 36.4 72 16 159/78 (105) 99 High Flow N/C 4.00 07/25/19 19:33 36.2 58 18 159/85 (109) 100 High Flow N/C 5.00 07/25/19 19:30 99 High Flow N/C 5.00 07/25/19 17:56 98 High Flow N/C 4.00 07/25/19 16:09 36.1 62 18 157/91 (113) 98 High Flow N/C 5.00 07/25/19 14:04 94 High Flow N/C 4.00 07/25/19 12:00 36.0 65 18 162/83 (109) 96 High Flow N/C 5.00 07/25/19 08:00 36.6 73 18 162/83 (109) 94 High Flow N/C 5.00 07/25/19 08:00 94 High Flow N/C 5.00 07/25/19 06:56 98 High Flow N/C 4.00 I & O 07/26/19 07:00 Intake Total 4822 ml Output Total 4550 ml Balance 272 ml Height & Weight Height: 6'0" Weight: 174lbs. 3.0oz. 79.817723uq; 25.00 BMI Method:Stated General Appearance: No Apparent Distress, Chronically ill HEENT: Normal ENT Inspection Neck: Normal Inspection, Non Tender Respiratory: Lungs Clear, No Respiratory Distress Cardiovascular: Regular Rate, Rhythm, No Murmur Capillary Refill: Less Than 3 Seconds Extremity: Non Tender, No Calf Tenderness, No Pedal Edema, Other (left LE with splint in place) Neurologic/Psychiatric: Alert, Oriented x3 Skin: Warm/Dry Results Lab Laboratory Tests 4/26/20 05:50 Assessment/Plan Assessment/Plan Basilar bilateral pneumonia -s/p abx -Cultures are negative COPDAE -Duoneb -Solumedrol hx Metastatic Lung Cancer RANI PACHECO DO Jul 26, 2019 06:23
[2019-07-26] MEDS ORDERED: predniSONE 20 MG TAB PO SCH (07:00)
[2019-07-26 07:50] VITALS: BP 132/78
[2019-07-26] MEDS: amLODIPine 5 MG (NORVASC) TAB PO SCH (09:07)
[2019-07-26] MEDS: PANTOPRAZOLE 40 MG (PROTONIX) TAB PO SCH (09:07)
[2019-07-26] MEDS: PHENYTOIN 100 MG (DILANTIN) CAP PO SCH (09:08)
[2019-07-26] MEDS: NYSTATIN CREAM (MYCOSTATIN) 30 GM TUBE TP SCH ×2 (09:08→13:21)
[2019-07-26] MEDS: CEFEPIME 2,000 MG/SWFI 20 ML IV PUSH IV SCH ×2 (09:08)
[2019-07-26] MEDS: GABAPENTIN 600 MG (NEURONTIN) TAB PO SCH (09:08)
[2019-07-26] MEDS: lamoTRIgine 25 MG (LaMICtal) TAB PO SCH (09:08)
[2019-07-26] MEDS: ENOXAPARIN 40 MG/0.4 ML (LOVENOX) SYR SC SCH (09:57)
[2019-07-26] MEDS: ADVAIR HFA 115/21 MCG INHALER 8 GM IH SCH (10:30)
[2019-07-26] MEDS: UMECLIDINIUM BROMIDE (INCRUSE ELLIPTA) 7'S IH SCH (10:30)
[2019-07-26 12:26] VITALS: BP 140/84
[2019-07-26] MEDS ORDERED: CEFD300C3 PO (12:41)
[2019-07-26] MEDS ORDERED: PRD20T PO (12:41)
[2019-07-26] MEDS ORDERED: DOXY100C2 PO (12:41)
--- NOTE | 2019-07-26 13:16 | NUR ---
EMS notified of pt discharge to home. Pt's Caregiver Tabatha also notified and will be expecting him as she and her daughter provide pt 24 hour care. No other needs identified.
[2019-07-26 13:53] VITALS: BP 140/84
== END 2019-07-26 14:11 | disposition home or self-care (01) | DRG 194 ==
LOC: EDUNIT# 23:55 → ER 23:57 → 4TH 07-23 01:13
PROVIDERS: ADMIT Family Medicine; ATTEND Family Medicine
DX: J18.9 Pneumonia, unspecified organism (principal); J44.1 Chronic obstructive pulmonary disease with (acute) exacerbation; J44.0 Chronic obstructive pulmonary disease with (acute) lower respiratory infection; C34.90 Malignant neoplasm of unspecified part of unspecified bronchus or lung; C79.51 Secondary malignant neoplasm of bone; I38 Endocarditis, valve unspecified; R06.03 Acute respiratory distress; F17.210 Nicotine dependence, cigarettes, uncomplicated; I10 Essential (primary) hypertension; E78.00 Pure hypercholesterolemia, unspecified; R01.1 Cardiac murmur, unspecified; G40.909 Epilepsy, unspecified, not intractable, without status epilepticus; M19.91 Primary osteoarthritis, unspecified site; Z92.21 Personal history of antineoplastic chemotherapy; G47.30 Sleep apnea, unspecified; G62.9 Polyneuropathy, unspecified; G14 Postpolio syndrome; S82.202D Unspecified fracture of shaft of left tibia, subsequent encounter for closed fracture with routine healing; S82.402D Unspecified fracture of shaft of left fibula, subsequent encounter for closed fracture with routine healing; M54.2 Cervicalgia
CPT/HCPCS: 36415; 71045; 72040; 80048; 80053; 80202; 81000; 82805; 83605; 85007; 85025; 85027; 85610; 85730; 87040; 87088; 87804; 94640; 94760; 96374; 96375

== ENCOUNTER 2019-08-08 13:25 | Emergency (ER) | payer MEDICARE, MEDICAID ==
[~2019-08-08] VITALS: Ht 187.9 cm; Wt 81.0 kg
[~2019-08-08 13:25] MED LIST changes: +DOXY100C2 PO
--- OUTSIDE RECORDS SUMMARY | 2019-08-08 13:30 | XMS REPORT | Clinical Summary ---
Author Author [facility] Organization [facility] Address Unknown Phone Unavailable Care Team Providers Care Boot Lace Cutter Machine Name Role Phone Efra Valentino MD Unavailable Unavailable Source Comments Some departments are not documenting in the electronic medical record. If you d o not see the information that you expected, contact Release of Information in [facility] [employer] Information Management department at [phone] for further assistan ce in locating additional records.[facility] Allergies Comments Active Allergy Reactions Severity [...] SCREENING PNEUMONIA (PPSV23) 2018 VACCINE (1 of 1 - PPSV23) INFLUENZA VACCINE 12/30/2019 Results Not on filefrom Last 3 Months
--- OUTSIDE RECORDS SUMMARY | 2019-08-08 13:38 | XMS REPORT | Continuity of Care Document ---
Author Organization Unknown Address Unknown Phone Unavailable Allergies Active Description Code Type Severity Reaction Onset Reported/Identified Relationship to Patient Clinical Status Yes AMOXILLEN AMOXILLEN Mild N/A 07/17/2008 Yes Penicillins [id number] Drug Aller gy Mild N/A 08/02/2008 Yes aspirin Drug Allergy N/A N/A 12/10/2013 Yes aspirin [id number] Drug Allergy Mild DOES NOT WORK W 07/23/2019 Yes ibuprofen [id number] Drug Allergy Mild N/A 07/23/2019 Medications There is no data. Problems Date [...] CHEMOTHERAP 02/27/1422 STEPHEN PRICE Ot Z79.899 OTHER SKILLED NURSING (CURRENT) DRUG THERAPY 02/27/1422 STEPHEN PRICE Ot [...] 09/17/2013 MARIAJOSE LASSITER CELESTE Erma Ot V06.1 [id number], COMBINED [ 11/02/2013 VANESSA GUTHRIE MD Ot [...] AMANDEEP Pineda Ot 496 05/16/2014 GELLENDER DO, AMADNEEP Pineda Ot 780.39 05/16/2014 GELLENDER DO, AMANDEEP [...] Pineda Ot E928.9 08/26/2014 GELLENDER DO, AMANDEEP iPneda Ot 780.39 08/26/2014 GELLENDER DO, AMANDEEP Pineda Ot 721.0 08/26/2014 GELLENDER DO, AMANDEEP Pineda Ot 496 08/26/2014 GELLENDER DO, AMANDEEP Pineda Ot 780.39 11/10/2014 Ot 272.4 11/10/2014 Ot 496 11/10/2014 Ot 780.39 11/10/2014 Ot 780.39 11/10/2014 Ot 272.4 11/10/2014 Ot 780.39 11/10/2014 Ot 496 11/10/2014 Ot 786.2 11/10/2014 Ot 780.39 11/10/2014 Ot 780.39 11/10/2014 GELLENDER DO, AMANDEEP Pineda Ot 490 11/10/2014 GELLENDER DO, AMADNEEP Pineda Ot 496 11/10/2014 GELLENDER DO, AMANDEEP [...] 10/24/2015 NOREEN CHÁVEZ APRN Ot Z79.899 OTHER SKILLED NURSING (CURRENT) DRUG THERAPY 10/25/2015 NOREEN CHÁVEZ APRN Ot F17.210 NICOTINE DEPENDENCE, CIGARETTES, UNCOMPL 10/25/2015 CHÁVEZ, PETER J COMMERCIAL HVAC SERVICE TECHNICIAN Ot G40.909 EPILEPSY, UNSP, NOT INTRACTABLE, WITHOUT 10/25/2015 NOREEN CHÁVEZ COMMERCIAL HVAC SERVICE TECHNICIAN Ot M47.892 OTHER SPONDYLOSIS, CERVICAL REGION 10/25/2015 NOREEN CHÁVEZ COMMERCIAL HVAC SERVICE TECHNICIAN Ot R42 DIZZINESS AND GIDDINESS 10/25/2015 NOREEN CHÁVEZ COMMERCIAL HVAC SERVICE TECHNICIAN Ot S01.312A LACERATION WITHOUT FOREIGN BODY OF LEFT 10/25/2015 NOREEN CHÁVEZ COMMERCIAL HVAC SERVICE TECHNICIAN Ot W01.0XXA FALL SAME LEV FROM SLIP/TRIP W/O STRIKE 10/25/2015 NOREEN CHÁVEZ COMMERCIAL HVAC SERVICE TECHNICIAN Ot Y92.[address] IN UNSP NON-INSTITUT (PRIVATE 10/25/2015 NOREEN CHÁVEZ COMMERCIAL HVAC SERVICE TECHNICIAN Ot Y99 .8 OTHER EXTERNAL CAUSE STATUS 10/25/2015 NOREEN CHÁVEZ COMMERCIAL HVAC SERVICE TECHNICIAN Ot Z23 ENCOUNTER FOR IMMUNIZATION 10/25/2015 NOREEN CHÁVEZ APRN Ot Z79.899 OTHER SKILLED NURSING (CURRENT) DRUG THERAPY 11/01/2015 Ot 272.4 HYPE RLIPIDEMIA NEC/NOS 11/01/2015 Ot 496 [facility] AI RWAY OBSTRUCT NEC 11/01/2015 Ot 780.39 OTH ER CONVULSIONS 11/01/2015 Ot 780.39 OT ER CONVULSIONS 11/01/2015 Ot 272.4 HYPE RLIPIDEMIA NEC/NOS 11/01/2015 Ot 780.39 OTH ER CONVULSIONS 11/01/2015 Ot 496 [facility] AI RWAY OBSTRUCT NEC 11/01/2015 Ot 786.2 COUGH 11/01/2015 Ot 496 [facility] AI RWAY OBSTRUCT NEC 11/01/2015 Ot 786.2 COUGH 11/01/2015 Ot 272.4 HYPE RLIPIDEMIA NEC/NOS 11/01/2015 Ot 780.39 OTH ER CONVULSIONS 11/01/2015 Ot 780.39 OTH ER CONVULSIONS 11/01/2015 Ot 272.4 HYPE RLIPIDEMIA NEC/NOS 11/01/2015 Ot 496 [facility] AI RWAY OBSTRUCT NEC 11/01/2015 Ot [...] 783.21 LOSS OF WEIGHT 02/21/2016 GELLENDER AMANDEEP LSASITER Ot 496 [facility] AIRWAY OBSTRUCT NEC 02/21/2016 [...] R56.9 UNSPECIFIED CONVULSIONS 02/21/2016 CHADWICK LASSITER, AMANDEEP Pinead Ot Z87.81 PERSONAL HISTORY OF (HEALED) TRAUMATIC [...] Ot 272.4 HYPERLIPIDEMIA NEC/NOS 02/28/2016 GELLENDER DO, AMADNEEP Pineda Ot 496 CHR AIRWAY OBSTRUCT NEC 02/28/2016 GELLENDER AMANDEEP Ot 780.39 OTHER CONVULSIONS 02/28/2016 GELLENDER DOAMANDEEP Ot 729.81 SWELLING OF LIMB 02/28/2016 GELLENDER DOAMANDEEP Ot 780.79 OTH MALAISE FATIGUE 02/28/2016 GABRIELLE RIOS, YELITZA Marie Ot 780.3 9 OTHER CONVULSIONS 02/28/2016 GELLENDER DOAMADNEEP Ot 825.25 FX METATARSAL-CLOSED 02/28/2016 GELLENDER AMANDEEP [...] Ot E78.5 HYPERLIPIDEMIA, UNSPECIFIED 02/28/2016 GELLENDER DO, AMNADEEP Pineda Ot F17.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, UNSPECIFIED, UNCOMP [...] F17.210 NICOTINE DEPENDENCE, CIGARETTES, UNCOMPL 03/03/2017 AMANDEEP GEANO DO Ot G40.909 EPILEPSY, UNSP, NOT INTRACTABLE, [...] NOT INTRACTABLE, WITHOUT 04/02/2017 GELLENDER DO, AMANDEEP Pienda Ot I10 ESSENTIAL (PRIMARY) HYPERTENSION 04/02/2017 GELLENDER [...] ENCOUNTER 04/30/2017 NOREEN CHÁVEZ APRN Ot Z79.52 SENIOR PAYROLL SPECIALIST (CURRENT) USE OF SYSTEMIC STER 04/30/2017 NOREEN [...] EPISTAXIS 04/30/2017 NOREEN CHÁVEZ APRN Ot Z79.52 SKILLED NURSING (CURRENT) USE OF SYSTEMIC STER 04/30/2017 NOREEN [...] ENCOUNTER 05/02/2017 NOREEN CHÁVEZ APRN Ot Z79.52 SKILLED NURSING (CURRENT) USE OF SYSTEMIC STER 05/02/2017 NOREEN [...] .9 CHRONIC OBSTRUCTIVE PULMONARY DISEASE, U 05/02/2017 NROEEN CHÁVEZ APRN Ot R04 .0 EPISTAXIS 05/02/2017 NOREEN CHÁVEZ APRN Ot Z79.52 SKILLED NURSING (CURRENT) USE OF SYSTEMIC STER 05/02/2017 NOREEN [...] ABNORMAL FINDING OF DAVID 07/03/2017 JUNIOR RANI LASSIETR Ot Z72. 0 TOBACCO USE 07/03/2017 RANI [...] NODULE 07/09/2017 STEPHEN PRICE Ot Z79.899 OTHER SENIOR PAYROLL SPECIALIST (CURRENT) DRUG THERAPY 07/09/2017 STEPHEN PRICE Ot [...] NODULE 07/09/2017 STEPHEN PRICE Ot Z79.899 OTHER SENIOR PAYROLL SPECIALIST (CURRENT) DRUG THERAPY 07/09/2017 STEPHEN PRICE Ot [...] DO Ot Z72. 0 TOBACCO USE 07/09/2017 STEHPEN PRICE Ot C40.22 MALIGNANT NEOPLASM OF LONG [...] 07/15/2017 STEPHEN PRICE N Ot Z79.899 OTHER SKILLED NURSING (CURRENT) DRUG THERAPY 07/15/2017 DEESTEPHEN PATRICIO N [...] 07/18/2017 STEPHEN PRICE N Ot Z79.899 OTHER SENIOR PAYROLL SPECIALIST (CURRENT) DRUG THERAPY 07/18/2017 STEPHEN PRICE N [...] Ot J45.909 UNSPECIFIED ASTHMA, UNCOMPLICATED 07/24/2017 CÉSAR NEGRTEE DO Ot R91. 8 OTHER NONSPECIFIC ABNORMAL FINDING OF DAVID 07/24/2017 CÉSAR NEGRETE DO Ot Z79.899 OTHER SKILLED NURSING (CURRENT) DRUG THERAPY 07/24/2017 CÉSAR NEGRETE DO [...] 07/25/2017 CÉSAR NEGRETE DO Ot Z79.899 OTHER SENIOR PAYROLL SPECIALIST (CURRENT) DRUG THERAPY 07/25/2017 CÉSAR NEGRETE DO [...] NODULE 07/28/2017 STEPHEN PRICE Ot Z79.899 OTHER SKILLED NURSING (CURRENT) DRUG THERAPY 07/28/2017 STEPHEN PRICE Ot [...] NODULE 07/29/2017 STEPHEN PRICE Ot Z79.899 OTHER SKILLED NURSING (CURRENT) DRUG THERAPY 07/29/2017 STEPHEN PRICE Ot Z87.891 PERSONAL HISTORY OF NICOTINE DEPENDENCE 08/01/2017 STEPHEN PRICE Ot 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 08/01/2017 STEPHEN PRICE Ot R91.1 SOLITARY PULMONARY NODULE 08/01/2017 STEPHEN PRICE Ot Z87.891 PERSONAL HISTORY OF NICOTINE DEPENDENCE 08/01/2017 [facility] AMANDEEP Pineda Ot C34.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 08/01/2017 [facility] , AMANDEEP Pineda Ot E78.00 PURE HYPERCHOLESTEROLEMIA, UNSPECIFIED 08/01/2017 [facility] , AMANDEEP Pineda Ot G14 POSTPOLIO SYNDROME 08/01/2017 [facility] G40.909 EPILEPSY, UNSP, NOT INTRACTABLE, WITHOUT 08/01/2017 [facility] AM[facility] LASSITER Ot G47.30 SLEEP APNEA, UNSPECIFIED 08/01/2017 [facility] AMANDEEP LASSITER Ot I10 ESSENTIAL (PRIMARY) HYPERTENSION 08/01/2017 [facility] AMANDEEP LASSITER Ot J18.9 PNEUMONIA, UNSPECIFIED ORGANISM 08/01/2017 AMANDEEP GENAO DO Ot J44.0 CHRONIC OBSTRUCTIVE PULMON DISEASE W ACU 08/01/2017 [facility] AMANDEEP LASSITER Ot J44.1 CHRONIC OBSTRUCTIVE PULMONARY DISEASE W 08/01/2017 [facility] J96.21 ACUTE AND CHRONIC RESPIRATORY FAILURE [place] 08/01/2017 [facility] AMANDEEP LASSITER Ot R09.02 HYPOXEMIA 08/01/2017 [facility] AMANDEEP LASSITER Ot Z87.891 PERSONAL HISTORY OF NICOTINE DEPENDENCE 08/05/2017 VANESSA GUTHRIE MD Ot E78.00 PURE HYPERCHOLESTEROLEMIA, UNSPECIFIED 08/05/2017 VANESSA GUTHRIE MD Ot G40.909 EPILEPSY, UNSP, NOT INTRACTABLE, WITHOUT 08/05/2017 VANESSA GUTHRIE MD Ot G47.30 SLEEP APNEA, UNSPECIFIED 08/05/2017 VANESSA GUTHRIE MD Ot I10 ESSENTIAL (PRIMARY) HYPERTENSION 08/05/2017 VANESSA GUTHIRE MD Ot J44.1 CHRONIC OBSTRUCTIVE PULMONARY DISEASE W 08/05/2017 VANESSA GUTHRIE MD Ot R06.03 ACUTE RESPIRATORY DISTRESS 08/05/2017 VANESSA GUTHRIE MD Ot Z79.51 SKILLED NURSING (CURRENT) USE OF INHALED STERO 08/05/2017 VANESSA [...] C34.90 MALIGNANT NEOPLASM OF UNSP PART OF [facility] 08/06/2017 AMANDEEP GENAO DO Ot E78.00 [...] C34.90 MALIGNANT NEOPLASM OF UNSP PART OF [facility] 08/07/2017 AMANDEEP GENAO DO Ot E78.00 [...] DEPENDENCE ON SUPPLEMENTAL OXYGEN 08/29/2017 NINA ANAYA COMMERCIAL HVAC SERVICE TECHNICIAN Ot M79.604 PAIN IN RIGHT LEG 08/29/2017 HÉCTOR NIAN Bustos COMMERCIAL HVAC SERVICE TECHNICIAN Ot M79.605 PAIN IN LEFT LEG 08/29/2017 IRMA ANAYAINE Juli COMMERCIAL HVAC SERVICE TECHNICIAN Ot M79.89 OTHER SPECIFIED SOFT TISSUE DISORDERS 08/29/2017 IRMA ANAYAINE E COMMERCIAL HVAC SERVICE TECHNICIAN Ot R91.8 OTHER NONSPECIFIC ABNORMAL FINDING OF DAVID 08/29/2017 NINA ANAYA COMMERCIAL HVAC SERVICE TECHNICIAN Ot M79.604 PAIN IN RIGHT LEG 08/29/2017 NINA ANAYA COMMERCIAL HVAC SERVICE TECHNICIAN Ot M79.605 PAIN IN LEFT LEG 08/29/2017 HÉCTORNINA TATUM COMMERCIAL HVAC SERVICE TECHNICIAN Ot M79.89 OTHER SPECIFIED SOFT TISSUE DISORDERS 08/29/2017 NINA ANAYA COMMERCIAL HVAC SERVICE TECHNICIAN Ot R91.8 OTHER NONSPECIFIC ABNORMAL FINDING OF DAVID 09/08/2017 RESENDIZSIVA S FRAME STRIPPER Ot C34.12 MALIGNANT NEOPLASM OF UPPER LOBE, LEFT B 09/08/2017 RESENDIZSIVA Rodriguez S FRAME STRIPPER Ot C79.51 SECONDARY MALIGNANT NEOPLASM OF BONE 09/10/2017 RESENDIZ HILBRENDA S FRAME STRIPPER Ot C34.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, LEFT B 09/10/2017 RESENDIZSIVA S FRAME STRIPPER Ot C79.51 SECONDARY MALIGNANT NEOPLASM OF BONE 09/10/2017 NINA ANAYA COMMERCIAL HVAC SERVICE TECHNICIAN Ot M79.604 PAIN IN RIGHT LEG 09/10/2017 NINA ANAYA COMMERCIAL HVAC SERVICE TECHNICIAN Ot M79.605 PAIN IN LEFT LEG 09/10/2017 NINA ANAYA COMMERCIAL HVAC SERVICE TECHNICIAN Ot M79.89 OTHER SPECIFIED SOFT TISSUE DISORDERS 09/10/2017 NINA ANAYA COMMERCIAL HVAC SERVICE TECHNICIAN Ot R91.8 OTHER NONSPECIFIC ABNORMAL FINDING OF DAVID 09/11/2017 STEPHEN PRICE Ot E78.5 HYPERLIPIDEMIA, UNSPECIFIED 09/11/2017 STEPHEN PRICE Ot G40.909 EPILEPSY, UNSP, NOT INTRACTABLE, WITHOUT 09/11/2017 STEPHEN PRICE N Ot J43.9 EMPHYSEMA, UNSPECIFIED 09/11/2017 STEPHEN PRICE N Ot M89.9 DISORDER OF BONE, UNSPECIFIED 09/11/2017 STEPHEN PRICE Ot R91.1 SOLITARY PULMONARY NODULE 09/11/2017 STEPHEN PRICE Ot Z79.899 OTHER SENIOR PAYROLL SPECIALIST (CURRENT) DRUG THERAPY 09/11/2017 STEPHEN PRICE Ot Z87.891 PERSONAL HISTORY OF NICOTINE DEPENDENCE 09/15/2017 STEPHEN PRICE Ot E78.5 HYPERLIPIDEMIA, UNSPECIFIED 09/15/2017 STEPHEN PRICE Ot G40.909 EPILEPSY, UNSP, NOT INTRACTABLE, WITHOUT 09/15/2017 STEPHEN PRICE Ot J43.9 EMPHYSEMA, UNSPECIFIED 09/15/2017 STEPHEN PRICE Ot M89.9 DISORDER OF BONE, UNSPECIFIED 09/15/2017 STEPHEN PRICE Ot R91.1 SOLITARY PULMONARY NODULE 09/15/2017 STEPHEN PRICE Ot Z79.899 OTHER SKILLED NURSING (CURRENT) DRUG THERAPY 09/15/2017 STEPHEN PRICE Ot Z87.891 PERSONAL HISTORY OF NICOTINE DEPENDENCE 09/17/2017 SIVA RESENDIZ FRAME STRIPPER Ot C34.12 MALIGNANT NEOPLASM OF UPPER LOBE, LEFT B 09/17/2017 SIVA RESENDIZ FRAME STRIPPER Ot C79.51 SECONDARY MALIGNANT NEOPLASM OF BONE [...] GELLENDER DO, AMANDEEP Pineda Ot Z79.899 OTHER SKILLED NURSING (CURRENT) DRUG THERAPY 09/24/2017 GELLENDER DO, AMANDEEP [...] GELLENDER DO, AMANDEEP Pineda Ot Z79.899 OTHER SKILLED NURSING (CURRENT) DRUG THERAPY 09/25/2017 GELLENDER DO, AMANDEEP [...] PURE HYPERCHOLESTEROLEMIA, UNSPECIFIED 09/26/2017 GELLENDER DO, AMANDEEP Pnieda Ot G14 POSTPOLIO SYNDROME 09/26/2017 GELLENDER DO, [...] GELLENDER DO, AMANDEEP Pineda Ot Z79.899 OTHER SKILLED NURSING (CURRENT) DRUG THERAPY 09/26/2017 GELLENDER DO, AMANDEEP [...] DO, AMANDEEP Pineda Ot Z79.899 OTHER SENIOR PAYROLL SPECIALIST (CURRENT) DRUG THERAPY 09/26/2017 GELLENDER DO, AMANDEEP [...] DO, AMANDEEP Pineda Ot Z79.899 OTHER SENIOR PAYROLL SPECIALIST (CURRENT) DRUG THERAPY 09/26/2017 GELLENDER DO, AMANDEEP [...] DO, AMANDEEP Pineda Ot Z79.899 OTHER SENIOR PAYROLL SPECIALIST (CURRENT) DRUG THERAPY 09/26/2017 GELLENDER DO, AMANDEEP [...] GELLENDER DO, AMANDEEP Pineda Ot Z79.899 OTHER SKILLED NURSING (CURRENT) DRUG THERAPY 09/26/2017 GELLENDER DO, AMANDEEP [...] GELLENDER DO, AMANDEEP Pineda Ot Z79.899 OTHER SKILLED NURSING (CURRENT) DRUG THERAPY 09/27/2017 GELLENDER DO, AMANDEEP [...] GELLENDER DO, AMANDEEP Pineda Ot Z79.899 OTHER SKILLED NURSING (CURRENT) DRUG THERAPY 09/28/2017 GELLENDER DO, AMANDEEP [...] DO, AMANDEEP Pineda Ot Z79.899 OTHER SENIOR PAYROLL SPECIALIST (CURRENT) DRUG THERAPY 09/28/2017 GELLENDER DO, AMANDEEP [...] 10/01/2017 DEE, BOBAN N Ot Z79.899 OTHER SKILLED NURSING (CURRENT) DRUG THERAPY 10/01/2017 DEE, BOBAN N [...] 10/02/2017 DEE, BOBAN N Ot Z79.899 OTHER SENIOR PAYROLL SPECIALIST (CURRENT) DRUG THERAPY 10/02/2017 DEE, BOBAN N [...] 10/07/2017 DEE, SABASAN N Ot Z79.899 OTHER SKILLED NURSING (CURRENT) DRUG THERAPY 10/07/2017 DEE STEPHEN N [...] NODULE 10/10/2017 DEESTEPHEN N Ot Z79.899 OTHER SENIOR PAYROLL SPECIALIST (CURRENT) DRUG THERAPY 10/10/2017 DEESTEPHEN N Ot [...] CHEMOTHERAP 10/13/2017 DEESABASAN N Ot Z79.899 OTHER SENIOR PAYROLL SPECIALIST (CURRENT) DRUG THERAPY 10/13/2017 DEESABASAN N Ot [...] SCOT LASSITER JAMIR Ot Z79.89 9 OTHER SKILLED NURSING (CURRENT) DRUG THERAPY 11/17/2017 SCOT LASSITER JAMIR [...] HYPERTENSION 12/12/2017 KURT MOHR MD Ot Z79.52 SKILLED NURSING (CURRENT) USE OF SYSTEMIC STER 12/12/2017 KURT MOHR MD Ot Z79.899 OTHER SENIOR PAYROLL SPECIALIST (CURRENT) DRUG THERAPY 12/12/2017 KURT MOHR MD Ot Z87.891 PERSONAL HISTORY OF NICOTINE DEPENDENCE 12/16/2017 KURT MOHR MD Ot C34.90 MALIGNANT [facility]M [facility] 12/16/2017 KURT MOHR MD Ot H25.12 AGE-RELATED NUCLEAR CATARACT, LEFT EYE 12/16/2017 KURT MOHR MD Ot I10 ESSENTIAL (PRIMARY) HYPERTENSION 12/16/2017 KURT MOHR MD Ot Z79.52 SKILLED NURSING (CURRENT) USE OF SYSTEMIC STER 12/16/2017 KURT MOHR MD Ot Z79.899 OTHER SENIOR PAYROLL SPECIALIST (CURRENT) DRUG THERAPY 12/16/2017 ONUR RIOS, KURT [...] 12/22/2017 STEPHEN PRICE N Ot Z79.899 OTHER SKILLED NURSING (CURRENT) DRUG THERAPY 12/22/2017 STEPHEN PRICE N [...] 12/24/2017 KURT MOHR MD Ot Z79.899 OTHER SKILLED NURSING (CURRENT) DRUG THERAPY 12/25/2017 KURT MOHR MD [...] ONUR RIOS, KURT Newton Ot Z79.899 OTHER SENIOR PAYROLL SPECIALIST (CURRENT) DRUG THERAPY 12/25/2017 KURT MOHR MD Ot 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 12/25/2017 KRUT MOHR MD Ot E78.00 PURE HYPERCHOLESTEROLEMIA, UNSPECIFIED 12/25/2017 KURT MOHR MD Ot E78 .5 HYPERLIPIDEMIA, UNSPECIFIED 12/25/2017 KURT MOHR MD Ot G40.909 EPILEPSY, UNSP, NOT INTRACTABLE, WITHOUT 12/25/2017 KURT MOHR MD Ot H26 .9 UNSPECIFIED CATARACT 12/25/2017 KURT MOHR MD Ot I10 ESSENTIAL (PRIMARY) HYPERTENSION 12/25/2017 KURT MOHR MD Ot J45.909 UNSPECIFIED ASTHMA, UNCOMPLICATED 12/25/2017 ONUR RIOS, KURT Newton Ot Z79.899 OTHER SENIOR PAYROLL SPECIALIST (CURRENT) DRUG THERAPY 12/30/2017 KURT MOHR MD [...] ONUR RIOS, KURT L Ot Z79.899 OTHER SENIOR PAYROLL SPECIALIST (CURRENT) DRUG THERAPY 12/31/2017 DEESTEPHEN PATRICIO N [...] 12/31/2017 DEESTEPHEN PATRICIO N Ot Z79.899 OTHER SENIOR PAYROLL SPECIALIST (CURRENT) DRUG THERAPY 12/31/2017 DEE BOBAN N [...] 01/08/2018 DEE, BOBAN N Ot Z79.899 OTHER SKILLED NURSING (CURRENT) DRUG THERAPY 01/08/2018 DEE BOBAN N Ot Z87.891 PERSONAL HISTORY OF NICOTINE DEPENDENCE 01/09/2018 SIVA RESENDIZ FRAME STRIPPER Ot C34.12 MALIGNANT NEOPLASM OF UPPER LOBE, LEFT B 01/22/2018 SIVA RESENDIZ FRAME STRIPPER Ot C34.12 MALIGNANT NEOPLASM OF UPPER LOBE, [...] UNSPECIFIED 01/29/2018 STEPHEN PRICE Ot Z79.899 OTHER SENIOR PAYROLL SPECIALIST (CURRENT) DRUG THERAPY 01/29/2018 STEPHEN PRICE Ot [...] UNSPECIFIED 02/17/2018 STEPHEN PRICE Ot Z79.899 OTHER SKILLED NURSING (CURRENT) DRUG THERAPY 02/17/2018 STEPHEN PRICE Ot Z87.891 PERSONAL HISTORY OF NICOTINE DEPENDENCE 03/12/2018 CHADWICK LASSITER, AMANDEEP Pinead Ot C34.90 MALIGNANT NEOPLASM OF UNSP PART [...] DO, AMANDEEP Pineda Ot Z79.899 OTHER SENIOR PAYROLL SPECIALIST (CURRENT) DRUG THERAPY 03/18/2018 GELLENDER DO, AMANDEEP [...] 03/19/2018 DEESTEPHEN PATRICIO Flavio Ot Z79.899 OTHER SKILLED NURSING (CURRENT) DRUG THERAPY 03/19/2018 DEESTEPHEN PATRICIO Flavio [...] DO, AMANDEEP Pineda Ot Z79.899 OTHER SENIOR PAYROLL SPECIALIST (CURRENT) DRUG THERAPY 03/26/2018 GELLENDER DO, AMANDEEP [...] DO, AMANDEEP Pineda Ot Z79.899 OTHER SENIOR PAYROLL SPECIALIST (CURRENT) DRUG THERAPY 03/26/2018 GELLENDER DO, AMANDEEP [...] CHEMOTHERAP 03/31/2018 STEPHEN PRICE Ot Z79.899 OTHER SKILLED NURSING (CURRENT) DRUG THERAPY 03/31/2018 STEPHEN PRICE Ot [...] 04/01/2018 DEE, BOBAN N Ot Z79.899 OTHER SKILLED NURSING (CURRENT) DRUG THERAPY 04/01/2018 DEE BOBAN N [...] 04/06/2018 DEE BOBAN N Ot Z79.899 OTHER SKILLED NURSING (CURRENT) DRUG THERAPY 04/06/2018 DEE BOBAN N [...] 04/06/2018 DEE, BOBAN N Ot Z79.899 OTHER SENIOR PAYROLL SPECIALIST (CURRENT) DRUG THERAPY 04/06/2018 STEPHEN PRICE Ot [...] UNSPECIFIED 04/06/2018 STEPHEN PRICE Ot Z79.899 OTHER SKILLED NURSING (CURRENT) DRUG THERAPY 04/06/2018 STEPHEN PRICE Ot [...] DO, AMANDEEP Pineda Ot J98.11 ATELECTASIS 04/21/2018 [facility], AMANDEEP Pineda Ot M19.91 PRIMARY OSTEOARTHRITIS, UNSPECIFIED SITE 04/21/2018 [facility], AAMNDEEP Pineda Ot N17.9 ACUTE KIDNEY FAILURE, UNSPECIFIED 04/21/2018 [facility] AMANDEEP Pineda Ot R06.03 ACUTE RESPIRATORY DISTRESS 04/21/2018 [facility], AMANDEEP Pineda Ot R09.02 HYPOXEMIA 04/21/2018 [facility], AMANDEEP Pineda Ot R64 CACHEXIA 04/21/2018 [facility], AMANDEEP Pineda Ot S12.9XXD FRACTURE OF NECK, UNSPECIFIED, SUBSEQUEN 04/21/2018 [facility], AMANDEEP Pineda Ot Z87.891 PERSONAL HISTORY OF NICOTINE DEPENDENCE 04/21/2018 [facility], AMANDEEP Pineda Ot Z99.81 DEPENDENCE ON SUPPLEMENTAL OXYGEN 04/24/2018 [facility], AMANDEEP Pineda Ot 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 04/24/2018 [facility], AMANDEEP Pineda Ot C34.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 04/24/2018 [facility], AMANDEEP Pineda Ot C79.51 SECONDARY MALIGNANT NEOPLASM OF BONE 04/24/2018 [facility], AMANDEEP Pineda Ot E78.00 PURE HYPERCHOLESTEROLEMIA, UNSPECIFIED 04/24/2018 [facility], AMANDEEP Pineda Ot E86.0 DEHYDRATION 04/24/2018 [facility], AMANDEEP Pineda Ot E87.1 HYPO-OSMOLALITY AND HYPONATREMIA 04/24/2018 [facility], AMANDEEP Pineda Ot E87.8 OTH DISORDERS OF ELECTROLYTE AND FLUID B 04/24/2018 [facility], AMANDEEP Pineda Ot G14 POSTPOLIO SYNDROME 04/24/2018 [facility], AMANDEEP Pineda Ot G40.919 EPILEPSY, UNSP, INTRACTABLE, WITHOUT STA 04/24/2018 [facility] AMANDEEP Pineda Ot G47.30 SLEEP APNEA, UNSPECIFIED 04/24/2018 [facility], AMANDEEP Pineda Ot I10 ESSENTIAL (PRIMARY) HYPERTENSION 04/24/2018 [facility], AMANDEEP Pineda Ot I95.9 HYPOTENSION, UNSPECIFIED 04/24/2018 [facility] AMANDEEP Pineda Ot J18.1 LOBAR PNEUMONIA, UNSPECIFIED ORGANISM 04/24/2018 [facility], AMANDEEP Pineda Ot J30.2 OTHER [...] UNSPECIFIED 04/27/2018 STEPHEN PRICE Ot Z79.899 OTHER SKILLED NURSING (CURRENT) DRUG THERAPY 04/27/2018 STEPHEN PRICE Ot Z87.891 PERSONAL HISTORY OF NICOTINE DEPENDENCE 05/06/2018 SIVA RESENDIZ FRAME STRIPPER Ot C34.12 MALIGNANT NEOPLASM OF UPPER LOBE, LEFT B 05/06/2018 SIVA RESENDIZ FRAME STRIPPER Ot C79.51 SECONDARY MALIGNANT NEOPLASM OF BONE 05/07/2018 STEPHEN PRICE Ot C34.12 MALIGNANT NEOPLASM OF UPPER LOBE, LEFT B 05/07/2018 STEPHEN PRICE Ot C79.51 SECONDARY MALIGNANT NEOPLASM OF BONE 05/07/2018 STEPHEN PRICE Ot E78.5 HYPERLIPIDEMIA, UNSPECIFIED 05/07/2018 STEPHEN PRICE Ot G40.909 EPILEPSY, UNSP, NOT INTRACTABLE, WITHOUT 05/07/2018 DEESTEPHEN PATRICIO Flavio Ot J43.9 EMPHYSEMA, UNSPECIFIED 05/07/2018 STEPHEN PRICE Flavio Ot Z79.899 OTHER SENIOR PAYROLL SPECIALIST (CURRENT) DRUG THERAPY 05/07/2018 STEPHEN PRICE Flavio [...] 05/11/2018 DEE STEPHEN Flavio Ot Z79.899 OTHER SKILLED NURSING (CURRENT) DRUG THERAPY 05/11/2018 STEPHEN PRICE Flavio [...] CHEMOTHERAP 05/25/2018 STEPHEN PRICE Ot Z79.899 OTHER SENIOR PAYROLL SPECIALIST (CURRENT) DRUG THERAPY 05/25/2018 STEPHEN PRICE Ot Z87.891 PERSONAL HISTORY OF NICOTINE DEPENDENCE 05/25/2018 SIVA RESENDIZ FRAME STRIPPER Ot C34.12 MALIGNANT NEOPLASM OF UPPER LOBE, LEFT B 05/25/2018 SIVA RESENDIZ FRAME STRIPPER Ot C79.51 SECONDARY MALIGNANT NEOPLASM OF BONE [...] Pineda Ot I25.10 ATHSCL HEART DISEASE OF [place] CORONARY 06/13/2018 GELLENDER DO, AMANDEEP Pineda Ot [...] Z87.891 PERSONAL HISTORY OF NICOTINE DEPENDENCE 06/13/2018 [facility] AM[facility]EP Pineda Ot Z99.81 DEPENDENCE ON SUPPLEMENTAL OXYGEN 06/22/2018 [facility] AMANDEEP Pineda Ot R56.9 UNSPECIFIED CONVULSIONS 06/22/2018 [facility] DO, AMANDEEP Pineda Ot F17.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, UNSPECIFIED, UNCOMP 06/22/2018 GE[facility]ENDER DO, AMANDEEP Pineda Ot J44.9 CHRONIC OBSTRUCTIVE PULMONARY DISEASE, U 06/22/2018 GELLENDER DO, AMANDEEP Pineda Ot R63.4 ABNORMAL WEIGHT LOSS 06/22/2018 [facility], AMANDEEP Pineda Ot J44.9 CHRONIC OBSTRUCTIVE PULMONARY DISEASE, U 06/22/2018 GE[facility]END[facility] DO, AMANDEEP Pineda Ot R63.4 ABNORMAL WEIGHT LOSS 06/22/2018 GE[facility]END[facility] DO, AMANDEEP Pineda Ot R63.4 ABNORMAL WEIGHT LOSS 06/22/2018 [facility], AMANDEEP Pineda Ot G40.909 EPILEPSY, UNSP, [...] ABNORMAL FINDING OF DAVID 06/22/2018 SIVA RESENDIZ FRAME STRIPPER Ot C34.12 MALIGNANT NEOPLASM OF UPPER LOBE, LEFT B 06/22/2018 SIVA RESENDIZ FRAME STRIPPER Ot C79.51 SECONDARY MALIGNANT NEOPLASM OF BONE 06/22/2018 AMANDEEP GENAO DO Ot B35.1 TINEA UNGUIUM 06/22/2018 SIVA RESENDIZ FRAME STRIPPER Ot C34.12 MALIGNANT NEOPLASM OF UPPER LOBE, LEFT B 06/22/2018 SIVA RESENDIZ FRAME STRIPPER Ot C79.51 SECONDARY MALIGNANT NEOPLASM OF BONE 06/22/2018 SIVA RESENDIZ FRAME STRIPPER Ot C34.12 MALIGNANT NEOPLASM OF UPPER LOBE, LEFT B 06/22/2018 SIVA RESENDIZP Ot C34.12 MALIGNANT NEOPLASM OF UPPER LOBE, LEFT B 06/22/2018 SIVA RESENDIZ FRAME STRIPPER Ot C79.51 SECONDARY MALIGNANT NEOPLASM OF BONE 06/22/2018 AMANDEEP GENAO DO Ot M43.12 SPONDYLOLISTHESIS, CERVICAL REGION 06/22/2018 [facility] M47.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 06/22/2018 [facility] AM[facility]EP LASSITER Ot [...] CHEMOTHERAP 06/22/2018 STEPHEN PRICE Ot Z79.899 OTHER SENIOR PAYROLL SPECIALIST (CURRENT) DRUG THERAPY 06/22/2018 STEPHEN PRICE Ot Z87.891 PERSONAL HISTORY OF NICOTINE DEPENDENCE 06/22/2018 SIVA RESENDIZ FRAME STRIPPER Ot C34.12 MALIGNANT NEOPLASM OF UPPER LOBE, [...] Pineda Ot G47.30 SLEEP APNEA, UNSPECIFIED 06/25/2018 [facility] Pineda Ot G62.9 POLYNEUROPATHY, UNSPECIFIED 06/25/2018 [facility], AMANDEEP Pineda Ot H53.9 UNSPECIFIED VISUAL DISTURBANCE 06/25/2018 [facility] DO, AMANDEEP Pineda Ot I10 ESSENTIAL (PRIMARY) HYPERTENSION 06/25/2018 [facility], AMANDEEP Pineda Ot I38 ENDOCARDITIS, VALVE UNSPECIFIED 06/25/2018 GE[facility]END[facility] DO, AMANDEEP Pineda Ot J18.1 LOBAR PNEUMONIA, UNSPECIFIED ORGANISM 06/25/2018 [facility], AMANDEEP Pineda Ot J44.9 CHRONIC OBSTRUCTIVE PULMONARY DISEASE, U 06/25/2018 [facility], AMANDEEP Pineda Ot M19.91 PRIMARY OSTEOARTHRITIS, UNSPECIFIED SITE 06/25/2018 [facility] DO, AMANDEEP Pineda Ot R01.1 CARDIAC MURMUR, UNSPECIFIED 06/25/2018 [facility], AMANDEEP Pineda Ot R41.0 DISORIENTATION, UNSPECIFIED 06/25/2018 GELDER DO, AMANDEEP Pineda Ot R42 DIZZINESS AND GIDDINESS 06/25/2018 [facility] DO, AMANDEEP Pineda Ot R47.81 SLURRED SPEECH 06/25/2018 [facility], AMANDEEP Pineda Ot R79.89 OTHER SPECIFIED ABNORMAL FINDINGS OF BLO 06/25/2018 [facility], AMANDEEP Pineda Ot T42.0X5A ADVERSE EFFECT OF HYDANTOIN DERIVATIVES, 06/25/2018 [facility] AMANDEEP Ot T42.1X5A ADVERSE EFFECT OF IMINOSTILBENES, INITIA 06/25/2018 [facility] , AMANDEEP Pineda Ot Z87.891 PERSONAL HISTORY OF NICOTINE DEPENDENCE 06/25/2018 [facility] , AMANDEEP Pineda Ot Z92.21 PERSONAL HISTORY OF ANTINEOPLASTIC CHEMO 06/25/2018 [facility], AMANDEEP Pineda Ot Z99.81 DEPENDENCE ON SUPPLEMENTAL OXYGEN 06/26/2018 [facility], AMANDEEP Pineda Ot C34.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 06/26/2018 [facility] DO, AMANDEEP Pineda Ot C79.51 SECONDARY MALIGNANT NEOPLASM OF BONE 06/26/2018 [facility] DO, AMANDEEP Pineda Ot D64.9 ANEMIA, UNSPECIFIED [...] W/O MYELOPATHY OR RADICULOPA 07/10/2018 SIVA RESENDIZ FRAME STRIPPER Ot S12.190A OTH DISP FX OF SECOND CERVICAL VERTEBRA, 07/10/2018 SIVA RESENDIZ FRAME STRIPPER Ot W19.XXXA UNSPECIFIED FALL, INITIAL ENCOUNTER 07/10/2018 SIVA RESENDIZ FRAME STRIPPER Ot Z95.828 PRESENCE OF OTHER VASCULAR IMPLANTS [...] UPPER LOBE, LEFT B 07/14/2018 SIVA RESENDIZ FRAME STRIPPER Ot C79.51 SECONDARY MALIGNANT NEOPLASM OF BONE [...] EPILEPSY, UNSP, NOT INTRACTABLE, WITHOUT 07/14/2018 STEPHEN RPICE Ot J43.9 EMPHYSEMA, UNSPECIFIED 07/14/2018 STEPHEN PRICE Ot Z51.11 ENCOUNTER FOR ANTINEOPLASTIC CHEMOTHERAP 07/14/2018 STEPHEN PRICE Ot Z79.899 OTHER SENIOR PAYROLL SPECIALIST (CURRENT) DRUG THERAPY 07/14/2018 STEPHEN PRICE Ot [...] C79.51 SECONDARY MALIGNANT NEOPLASM OF BONE 07/21/2018 [facility] AMANDEEP LASSITER Ot B35.1 TINEA UNGUIUM 07/21/2018 SIVA RESNEDIZP Ot C34.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, LEFT B 07/21/2018 SIVA RESENDIZP Ot C79.51 SECONDARY MALIGNANT NEOPLASM OF BONE 07/21/2018 SIVA RESENDIZP Ot C34.12 MALIGNANT NEOPLASM OF UPPER LOBE, LEFT B 07/21/2018 SIVA RESENDIZP Ot C34.12 MALIGNANT NEOPLASM OF UPPER LOBE, LEFT B 07/21/2018 SIVA RESENDIZP Ot C79.51 SECONDARY MALIGNANT NEOPLASM OF BONE 07/21/2018 [facility] AMANDEEP LASSITER Ot M43.12 SPONDYLOLISTHESIS, [...] CHEMOTHERAP 07/21/2018 STEPHEN PRICE Ot Z79.899 OTHER SENIOR PAYROLL SPECIALIST (CURRENT) DRUG THERAPY 07/21/2018 STEPHEN PRICE Ot [...] G81.94 HEMIPLEGIA, UNSPECIFIED AFFECTING LEFT N 07/24/2018 [facility], AMANDEEP Pineda Ot I10 ESSENTIAL (PRIMARY) HYPERTENSION 07/24/2018 GELLENDER DO, AMANDEEP Pineda Ot J18.1 LOBAR PNEUMONIA, UNSPECIFIED ORGANISM 07/24/2018 GELLENDER DO, AMANDEEP Pineda Ot J30.2 OTHER SEASONAL ALLERGIC RHINITIS 07/24/2018 [facility], AMANDEEP Pineda Ot J44.0 CHRONIC [...] 07/24/2018 [facility]ASS[facility], AMANDEEP Pineda Ot Z79.52 SENIOR PAYROLL SPECIALIST (CURRENT) USE OF SYSTEMIC STER 07/24/2018 [facility]ASS[facility], AMANDEEP Pineda Ot Z79.899 OTHER SKILLED NURSING (CURRENT) DRUG THERAPY 07/24/2018 [facility]ASSITER, AMANDEEP [...] Z51.11 ENCOUNTER FOR ANTINEOPLASTIC CHEMOTHERAP 07/26/2018 STEPHEN RPICE N Ot Z79.899 OTHER SKILLED NURSING (CURRENT) DRUG THERAPY 07/26/2018 STEPHEN PRICE N [...] 07/27/2018 STEPHEN PRICE N Ot Z79.899 OTHER SKILLED NURSING (CURRENT) DRUG THERAPY 07/27/2018 STEPHEN PRICE Ot Z87.891 PERSONAL HISTORY OF NICOTINE DEPENDENCE 07/27/2018 STEPHEN PRICE Flavio Ot C34.12 MALIGNANT NEOPLASM OF UPPER LOBE, LEFT B 07/27/2018 STEPHEN PRICE Flavio Ot C79.51 SECONDARY MALIGNANT NEOPLASM OF BONE 07/27/2018 STEPHEN PRICE Flavio Ot D64.9 ANEMIA, UNSPECIFIED 07/27/2018 STEPHEN PRICE Flavio Ot E78.5 HYPERLIPIDEMIA, UNSPECIFIED 07/27/2018 STEPHNE PRICE Flavio Ot G40.909 EPILEPSY, UNSP, NOT INTRACTABLE, WITHOUT 07/27/2018 STEPHEN PRICE Flavio Ot J43.9 EMPHYSEMA, UNSPECIFIED 07/27/2018 STEPHEN PRICE Flavio Ot Z51.11 ENCOUNTER FOR ANTINEOPLASTIC CHEMOTHERAP 07/27/2018 STEPHEN PRICE Flavio Ot Z79.899 OTHER SKILLED NURSING (CURRENT) DRUG THERAPY 07/27/2018 STEPHEN PRICE N [...] R91.1 SOLITARY PULMONARY NODULE 08/10/2018 SIVA RESENDIZ FRAME STRIPPER Ot C34.12 MALIGNANT NEOPLASM OF UPPER LOBE, LEFT B 08/10/2018 SIVA RESENDIZ FRAME STRIPPER Ot C79.51 SECONDARY MALIGNANT NEOPLASM OF BONE 08/10/2018 SIVA RESENDIZ FRAME STRIPPER Ot C34.12 MALIGNANT NEOPLASM OF UPPER LOBE, LEFT B 08/10/2018 SIVA RESENDIZ FRAME STRIPPER Ot C79.51 SECONDARY MALIGNANT NEOPLASM OF BONE [...] Pineda Ot 729.81 SWELLING OF LIMB 08/10/2018 [facility], AMANDEEP Pineda Ot 780.79 OTH MALAISE FATIGUE 08/10/2018 GABRIELLE RIOS, YELITZA Marie Ot 780.3 9 OTHER CONVULSIONS 08/10/2018 [facility] AM[facility]EP Pineda Ot 825.25 FX METATARSAL-CLOSED 08/10/2018 [facility] AMAN[facility]EP Pineda Ot E928.9 ACCIDENT NOS 08/10/2018 [facility] AMANED[facility] Pineda Ot 780.39 OTHER CONVULSIONS 08/10/2018 GELLENDER DO, AMANDEEP Pineda Ot 721.0 CERVICAL SPONDYLOSIS 08/10/2018 [facility] , AMANDEEP Pineda Ot 496 CHR AIRWAY OBSTRUCT NEC 08/10/2018 [facility] DO, AMANDEEP Pineda Ot 780.39 OTHER CONVULSIONS 08/10/2018 [facility] , AMANDEEP Pineda Ot E78.5 HYPERLIPIDEMIA, UNSPECIFIED 08/10/2018 [facility] , AMANDEEP Pineda Ot J44.9 CHRONIC OBSTRUCTIVE PULMONARY DISEASE, U 08/10/2018 GELLENDER , AMANDEEP Pineda Ot M79.672 PAIN IN LEFT FOOT 08/10/2018 [facility] AMANDEEP Pineda Ot R56.9 UNSPECIFIED CONVULSIONS 08/10/2018 [facility] , AMANDEEP Pineda Ot Z87.81 PERSONAL HISTORY OF (HEALED) TRAUMATIC F 08/10/2018 [facility] , AMANDEEP Pineda Ot E78.5 HYPERLIPIDEMIA, UNSPECIFIED 08/10/2018 GELLENDER DO, AMANDEEP Pineda Ot R56.9 UNSPECIFIED CONVULSIONS 08/10/2018 [facility] DO, AMANDEEP Pineda Ot J44.9 CHRONIC OBSTRUCTIVE PULMONARY DISEASE, U 08/10/2018 GELLENDER DO, AMANDEEP Pineda Ot R63.4 ABNORMAL WEIGHT LOSS 08/10/2018 GELLENDER DO, AMANDEEP Pineda Ot R63.4 ABNORMAL WEIGHT LOSS 08/10/2018 GELLENDER DO, AMANDEEP Pineda Ot G40.909 EPILEPSY, UNSP, NOT INTRACTABLE, WITHOUT 08/10/2018 GELLENDER DO, AMANDEEP Pineda Ot J34.89 OTHER SPECIFIED DISORDERS OF NOSE AND NA 08/10/2018 [facility], AMANDEEP Pineda Ot S99.912A UNSPECIFIED INJURY [...] DISEASE, U 08/12/2018 NESTOR AVILEZ Ot 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 08/12/2018 NESTOR [...] G40.909 EPILEPSY, UNSP, NOT INTRACTABLE, WITHOUT 08/14/2018 NESOTR AVILEZ Ot G62.9 POLYNEUROPATHY, UNSPECIFIED 08/14/2018 NESTOR AVILEZ Ot G89.29 OTHER CHRONIC PAIN 08/14/2018 NESTOR AVILEZ Ot H92.02 OTALGIA, LEFT EAR 08/14/2018 NESTOR AVILEZ Ot I10 ESSENTIAL (PRIMARY) HYPERTENSION 08/14/2018 NESTOR AVILEZ Ot J44.9 CHRONIC OBSTRUCTIVE PULMONARY DISEASE, U 08/14/2018 NESTOR AVILEZ Ot Z79.51 SKILLED NURSING (CURRENT) USE OF INHALED STERO 08/14/2018 NESTOR [...] CHEMOTHERAP 08/19/2018 STEPHEN PRICE Ot Z79.899 OTHER SKILLED NURSING (CURRENT) DRUG THERAPY 08/19/2018 STEPHEN PRICE Ot [...] HERNANDEZ MD, Ot Y92.[address] IN [facility] NON-INSTITUT (PRIVATE 09/04/2018 STEFAN HERNANDEZ MD, Ot Z23 ENCOUNTER FOR IMMUNIZATION 09/04/2018 STEFAN HERNANDEZ MD, Ot 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 09/04/2018 STEFAN [...] Ot Z98.890 OTHER SPECIFIED POSTPROCEDURAL STATES 09/04/2018 MA[facility] RIOS, STEFAN Zuniga Ot Z99.81 DEPENDENCE ON SUPPLEMENTAL OXYGEN 09/07/2018 [facility], AMANDEEP Pineda Ot C79.51 SECONDARY MALIGNANT NEOPLASM OF BONE 09/07/2018 [facility] Ot E78.00 PURE HYPERCHOLESTEROLEMIA, UNSPECIFIED 09/07/2018 [facility] Ot E87.1 HYPO-OSMOLALITY AND HYPONATREMIA 09/07/2018 [facility] Ot G14 POSTPOLIO SYNDROME 09/07/2018 [facility] Ot G40.909 EPILEPSY, UNSP, NOT INTRACTABLE, WITHOUT 09/07/2018 [facility] DOAMANDEEP Ot G47.30 SLEEP APNEA, UNSPECIFIED 09/07/2018 [facility] Ot G62.9 POLYNEUROPATHY, UNSPECIFIED 09/07/2018 [facility] Ot I10 ESSENTIAL (PRIMARY) HYPERTENSION 09/07/2018 [facility] Ot J44.1 CHRONIC OBSTRUCTIVE PULMONARY DISEASE W 09/07/2018 [facility] Ot M19.91 PRIMARY OSTEOARTHRITIS, UNSPECIFIED SITE 09/07/2018 [facility] AMANDEEP LASSITER Ot R01.1 CARDIAC MURMUR, UNSPECIFIED 09/07/2018 [facility] Ot R09.02 HYPOXEMIA 09/07/2018 [facility] AMANDEEP LASSITER Ot R26.2 DIFFICULTY IN WALKING, NOT ELSEWHERE CLA 09/07/2018 [facility] SCHMIDT DO Ot R29.6 REPEATED FALLS 09/07/2018 [facility] Ot R41.82 ALTERED MENTAL STATUS, UNSPECIFIED 09/07/2018 [facility], AMANDEEP Pineda Ot R42 DIZZINESS AND GIDDINESS 09/07/2018 [facility], AMANDEEP Pineda Ot R47.81 SLURRED SPEECH 09/07/2018 [facility], AMANDEEP Pineda Ot R53.1 WEAKNESS 09/07/2018 [facility], AMANDEEP Pineda Ot S09.90XA UNSPECIFIED INJURY OF HEAD, INITIAL ENCO 09/07/2018 [facility] AMANDEEP Pineda Ot S90.812A ABRASION, LEFT FOOT, INITIAL ENCOUNTER 09/07/2018 [facility], AMANDEEP Pineda Ot W01.190A FALL SAME LEV FROM SLIP/TRIP W STRIKE AG 09/07/2018 [facility] AMANDEEP Pineda Ot Y92.[address] [facility] [address] IN [facility] NON-[facility] (PRIVATE 09/07/2018 [facility] , AMANDEEP Pineda Ot Z85.118 PERSONAL HISTORY OF MALIGNANT NEOPLASM O 09/07/2018 [facility] Ot Z87.01 PERSONAL HISTORY OF PNEUMONIA (RECURRENT 09/07/2018 [facility], AMANDEEP Miriam Ot Z87.891 PERSONAL HISTORY OF NICOTINE DEPENDENCE 09/07/2018 [facility] Miriam Ot Z92.21 PERSONAL HISTORY OF ANTINEOPLASTIC CHEMO 09/07/2018 [facility], AMANDEEP Miriam Ot Z99.81 DEPENDENCE [...] HERNANDEZ MD, Ot Y92.[address] IN [facility] NON-[facility] (PRIVATE 09/08/2018 STEFAN HERNANDEZ MD, Ot Z23 ENCOUNTER FOR IMMUNIZATION 09/08/2018 STEFAN HERNANDEZ MD, Ot Z79.51 SKILLED NURSING (CURRENT) USE OF INHALED STERO 09/08/2018 STEFAN [...] CHEMOTHERAP 09/14/2018 STEPHEN PRICE Ot Z79.899 OTHER SENIOR PAYROLL SPECIALIST (CURRENT) DRUG THERAPY 09/14/2018 DEESTEPHEN PATRICIO Flavio Ot Z87.891 PERSONAL HISTORY OF NICOTINE DEPENDENCE 09/15/2018 NINA ANAYA COMMERCIAL HVAC SERVICE TECHNICIAN Ot C34.12 MALIGNANT NEOPLASM OF UPPER LOBE, LEFT B 09/15/2018 NINA ANAYA COMMERCIAL HVAC SERVICE TECHNICIAN Ot F17.201 NICOTINE DEPENDENCE, UNSPECIFIED, IN REM 09/15/2018 NINA ANAYA COMMERCIAL HVAC SERVICE TECHNICIAN Ot I25.10 ATHSCL HEART DISEASE OF [place] CORONARY 09/15/2018 IRMA ANAYAINE Juli COMMERCIAL HVAC SERVICE TECHNICIAN Ot I70.0 ATHEROSCLEROSIS OF [place] 09/15/2018 NINA ANAYA COMMERCIAL HVAC SERVICE TECHNICIAN Ot J18.9 PNEUMONIA, UNSPECIFIED ORGANISM 09/15/2018 IRMA ANAYAINE E COMMERCIAL HVAC SERVICE TECHNICIAN Ot J43.9 EMPHYSEMA, UNSPECIFIED 09/15/2018 IRMA ANAYAINE E COMMERCIAL HVAC SERVICE TECHNICIAN Ot J96.20 ACUTE AND CHR RESP FAILURE, UNSP W HYPOX 09/15/2018 IRMA ANAYAINE Juli COMMERCIAL HVAC SERVICE TECHNICIAN Ot J98.4 OTHER DISORDERS OF LUNG 09/15/2018 IRMA ANAYAINE Juli COMMERCIAL HVAC SERVICE TECHNICIAN Ot R91.8 OTHER NONSPECIFIC ABNORMAL FINDING OF DAVID 09/20/2018 NINA ANAYA COMMERCIAL HVAC SERVICE TECHNICIAN Ot C34.12 MALIGNANT NEOPLASM OF UPPER LOBE, LEFT B 09/20/2018 NINA ANAYA COMMERCIAL HVAC SERVICE TECHNICIAN Ot F17.201 NICOTINE DEPENDENCE, UNSPECIFIED, IN REM 09/20/2018 IRMA ANAYAINE Juli COMMERCIAL HVAC SERVICE TECHNICIAN Ot I25.10 ATHSCL HEART DISEASE OF [place] CORONARY 09/20/2018 NINA ANAYA COMMERCIAL HVAC SERVICE TECHNICIAN Ot I70.0 ATHEROSCLEROSIS OF [place] 09/20/2018 NINA ANAYA COMMERCIAL HVAC SERVICE TECHNICIAN Ot J18.9 PNEUMONIA, UNSPECIFIED ORGANISM 09/20/2018 IRMA ANAYAINE Juli COMMERCIAL HVAC SERVICE TECHNICIAN Ot J43.9 EMPHYSEMA, UNSPECIFIED 09/20/2018 IRMA ANAYAINE E COMMERCIAL HVAC SERVICE TECHNICIAN Ot J96.20 ACUTE AND CHR RESP FAILURE, UNSP W HYPOX 09/20/2018 IRMA ANAYAINE Juli COMMERCIAL HVAC SERVICE TECHNICIAN Ot J98.4 OTHER DISORDERS OF LUNG 09/20/2018 IRMA ANAYAINE Juli COMMERCIAL HVAC SERVICE TECHNICIAN Ot R91.8 OTHER NONSPECIFIC ABNORMAL FINDING OF [...] 09/24/2018 STEPHEN PRICE Flavio Ot Z79.899 OTHER SENIOR PAYROLL SPECIALIST (CURRENT) DRUG THERAPY 09/24/2018 STEPHEN PRICE Flavio Ot Z87.891 PERSONAL HISTORY OF NICOTINE DEPENDENCE 10/05/2018 MARY RIOS, STEFAN Zuniga Ot E78.00 PURE HYPERCHOLESTEROLEMIA, UNSPECIFIED 10/05/2018 STEFAN HERNANDEZ MD, Ot G40.909 EPILEPSY, UNSP, NOT INTRACTABLE, WITHOUT 10/05/2018 STEFAN HERNNADEZ MD Ot G47.30 SLEEP APNEA, UNSPECIFIED 10/05/2018 [...] BREATH 10/05/2018 STEFAN HERNANDEZ MD, Ot Z79.51 SKILLED NURSING (CURRENT) USE OF INHALED STERO 10/05/2018 STEFAN [...] 10/05/2018 DEE, BOBAN N Ot Z79.899 OTHER SKILLED NURSING (CURRENT) DRUG THERAPY 10/05/2018 DEE, BOBAN N [...] 10/08/2018 DEE, BOBAN N Ot Z79.899 OTHER SKILLED NURSING (CURRENT) DRUG THERAPY 10/08/2018 DEE, BOBAN N [...] BREATH 10/10/2018 STEFAN HERNANDEZ MD, Ot Z79.51 SKILLED NURSING (CURRENT) USE OF INHALED STERO 10/10/2018 STEFAN [...] BREATH 10/12/2018 STEFAN HERNANDEZ MD Ot 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 10/12/2018 STEFAN [...] APRN Ot I25.10 ATHSCL HEART DISEASE OF [place] CORONARY 10/12/2018 NINA ANAYA APRN Ot I70.0 [...] ABNORMAL FINDING OF DAVID 10/27/2018 NINA ANAYA COMMERCIAL HVAC SERVICE TECHNICIAN Ot C34.12 MALIGNANT NEOPLASM OF UPPER LOBE, LEFT B 10/27/2018 NINA ANAYA COMMERCIAL HVAC SERVICE TECHNICIAN Ot F17.201 NICOTINE DEPENDENCE, UNSPECIFIED, IN REM 10/27/2018 NINA ANAYA COMMERCIAL HVAC SERVICE TECHNICIAN Ot I25.10 ATHSCL HEART DISEASE OF [place] CORONARY 10/27/2018 NINA ANAYA COMMERCIAL HVAC SERVICE TECHNICIAN Ot I70.0 ATHEROSCLEROSIS OF [place] 10/27/2018 NINA ANAYA COMMERCIAL HVAC SERVICE TECHNICIAN Ot J18.9 PNEUMONIA, UNSPECIFIED ORGANISM 10/27/2018 NINA ANAYA COMMERCIAL HVAC SERVICE TECHNICIAN Ot J43.9 EMPHYSEMA, UNSPECIFIED 10/27/2018 NINA ANAYA COMMERCIAL HVAC SERVICE TECHNICIAN Ot J96.20 ACUTE AND CHR RESP FAILURE, UNSP W HYPOX 10/27/2018 NINA ANAYA COMMERCIAL HVAC SERVICE TECHNICIAN Ot J98.4 OTHER DISORDERS OF LUNG 10/27/2018 NINA ANAYA COMMERCIAL HVAC SERVICE TECHNICIAN Ot R91.8 OTHER NONSPECIFIC ABNORMAL FINDING OF [...] CHEMOTHERAP 11/03/2018 STEPHEN PRICE Ot Z79.899 OTHER SKILLED NURSING (CURRENT) DRUG THERAPY 11/03/2018 STEPHEN PRICE Ot Z87.891 PERSONAL HISTORY OF NICOTINE DEPENDENCE 11/04/2018 STEPHEN PRICE Ot C34.12 MALIGNANT NEOPLASM OF UPPER LOBE, LEFT B 11/04/2018 STEPHEN PRICE Ot C79.51 SECONDARY MALIGNANT NEOPLASM OF BONE 11/04/2018 STEPHEN PRIEC Ot Z01.89 ENCOUNTER FOR OTHER SPECIFIED SPECIAL [...] 780.79 OTH MALAISE FATIGUE 11/09/2018 GABRIELLE RIOS, YLEITZA Marie Ot 780.3 9 OTHER CONVULSIONS 11/09/2018 [...] INJURY OF LEFT ANKLE, INITIA 11/09/2018 AMANDEEP GENOA DO Ot W19.XXXA UNSPECIFIED FALL, INITIAL ENCOUNTER [...] 11/10/2018 KURT MOHR MD Ot Z79.899 OTHER SENIOR PAYROLL SPECIALIST (CURRENT) DRUG THERAPY 11/17/2018 STEPHEN PRICE Ot C34.12 MALIGNANT NEOPLASM OF UPPER LOBE, LEFT B 11/17/2018 STEPHEN PRICE Ot C79.51 SECONDARY MALIGNANT NEOPLASM OF BONE 11/17/2018 STEPHEN PRICE Ot E78.5 HYPERLIPIDEMIA, UNSPECIFIED 11/17/2018 STEPHEN PRICE Ot G40.909 EPILEPSY, UNSP, NOT INTRACTABLE, WITHOUT 11/17/2018 STEPEHN PRICE Ot J43.9 EMPHYSEMA, UNSPECIFIED 11/17/2018 STEPHEN PRICE Ot Z51.11 ENCOUNTER FOR ANTINEOPLASTIC CHEMOTHERAP 11/17/2018 STEPHEN PRICE Ot Z79.899 OTHER SKILLED NURSING (CURRENT) DRUG THERAPY 11/17/2018 STEPHEN PRICE Ot [...] Ot J98.11 ATELECTASIS 11/17/2018 RESENDIZSIVA Rodriguez Jennifer FRAME STRIPPER Ot M43.12 SPONDYLOLISTHESIS, CERVICAL REGION 11/17/2018 SIVA RESENDIZ FRAME STRIPPER Ot M47.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 11/17/2018 SIVA RESENDIZ FRAME STRIPPER Ot S12.190A OTH DISP FX OF SECOND CERVICAL VERTEBRA, 11/17/2018 SIVA RESENDIZ FRAME STRIPPER Ot W19.XXXA UNSPECIFIED FALL, INITIAL ENCOUNTER 11/17/2018 RESENDIZSIVA Rodriguez Jennifer FRAME STRIPPER Ot Z95.828 PRESENCE OF OTHER VASCULAR IMPLANTS AND 11/17/2018 NINA ANAYA APRN Ot C34.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 NEOPLASM OF UPPER LOBE, LEFT B 11/17/2018 NINA ANAYA APRN Ot F17.201 NICOTINE DEPENDENCE, UNSPECIFIED, IN REM 11/17/2018 NINA ANAYA APRN Ot I25.10 ATHSCL HEART DISEASE OF [place] CORONARY 11/17/2018 NINA ANAYA APRN Ot I70.0 [...] 11/17/2018 DEE, BOBAN N Ot Z79.899 OTHER SENIOR PAYROLL SPECIALIST (CURRENT) DRUG THERAPY 11/17/2018 DEE, BOBAN N [...] 11/18/2018 DEE, BOBAN N Ot Z79.899 OTHER SKILLED NURSING (CURRENT) DRUG THERAPY 11/18/2018 DEE, BOBAN N [...] 11/23/2018 STEPHEN PRICE Flavio Ot Z79.899 OTHER SKILLED NURSING (CURRENT) DRUG THERAPY 11/23/2018 STEPHEN PRICE Flavio Ot Z87.891 PERSONAL HISTORY OF NICOTINE DEPENDENCE 11/24/2018 STEPHEN PRICE Flavio Ot C34.12 MALIGNANT NEOPLASM OF UPPER LOBE, LEFT B 11/24/2018 STEPHEN PRICE Flavio Ot C79.51 SECONDARY MALIGNANT NEOPLASM OF BONE 11/24/2018 STEPHEN PRICE Flavio Ot Z01.89 ENCOUNTER FOR OTHER SPECIFIED SPECIAL EX 11/25/2018 FAVIAN COWARTP Ot E78.00 PURE HYPERCHOLESTEROLEMIA, UNSPECIFIED 11/25/2018 SOFYA, FAVIAN FRAME STRIPPER Ot F17.210 NICOTINE DEPENDENCE, CIGARETTES, UNCOMPL 11/25/2018 SOFYA, FAVIAN FRAME STRIPPER Ot F17.290 NICOTINE DEPENDENCE, OTHER TOBACCO PRODU 11/25/2018 FAVIAN COWARTP Ot G40.909 EPILEPSY, UNSP, NOT INTRACTABLE, WITHOUT 11/25/2018 SOFYA FAVIAN FRAME STRIPPER Ot G47.30 SLEEP APNEA, UNSPECIFIED 11/25/2018 SOFYA FAVIAN FRAME STRIPPER Ot G62.9 POLYNEUROPATHY, UNSPECIFIED 11/25/2018 SOFYA, FAVIAN FRAME STRIPPER Ot I10 ESSENTIAL (PRIMARY) HYPERTENSION 11/25/2018 SOFYA FAVIAN FRAME STRIPPER Ot J06.9 ACUTE UPPER RESPIRATORY INFECTION, UNSPE 11/25/2018 FAVIAN COWARTP Ot J44.9 CHRONIC OBSTRUCTIVE PULMONARY DISEASE, U 11/25/2018 FAVIAN COWARTP Ot R05 COUGH 11/25/2018 FAVIAN COWART FRAME STRIPPER Ot S12.100A UNSP DISP FX OF SECOND CERVICAL VERTEBRA 11/25/2018 FAVIAN COWARTP Ot W19.XXXA UNSPECIFIED FALL, INITIAL ENCOUNTER 11/25/2018 FAVIAN COWARTP Ot Z79.51 SKILLED NURSING (CURRENT) USE OF INHALED STERO 11/25/2018 FAVIAN COWARTP Ot Z82.49 FAMILY HX OF ISCHEM HEART DIS AND OTH DI 11/25/2018 SOFYAFAVIAN Bustos FRAME STRIPPER Ot Z85.118 PERSONAL HISTORY OF MALIGNANT NEOPLASM O 11/25/2018 SOFYAFAVIAN Bustos FRAME STRIPPER Ot Z87.81 PERSONAL HISTORY OF (HEALED) TRAUMATIC F 11/25/2018 SOFYA FAVIAN FRAME STRIPPER Ot Z88.6 ALLERGY STATUS TO ANALGESIC AGENT STATUS 11/27/2018 FAVIAN COWART FRAME STRIPPER Ot E78.00 PURE HYPERCHOLESTEROLEMIA, UNSPECIFIED 11/27/2018 SOFYA, FAIVAN FRAME STRIPPER Ot F17.210 NICOTINE DEPENDENCE, CIGARETTES, UNCOMPL 11/27/2018 SOFYA, FAVIAN FRAME STRIPPER Ot F17.290 NICOTINE DEPENDENCE, OTHER TOBACCO PRODU 11/27/2018 SOFYA, FAVIAN FRAME STRIPPER Ot G40.909 EPILEPSY, UNSP, NOT INTRACTABLE, WITHOUT 11/27/2018 SOFYA, FAVIAN FRAME STRIPPER Ot G47.30 SLEEP APNEA, UNSPECIFIED 11/27/2018 SOFYA, FAVIAN FRAME STRIPPER Ot G62.9 POLYNEUROPATHY, UNSPECIFIED 11/27/2018 SOFYA, FAVIAN FRAME STRIPPER Ot I10 ESSENTIAL (PRIMARY) HYPERTENSION 11/27/2018 SOFYA, FAVIAN FRAME STRIPPER Ot J06.9 ACUTE UPPER RESPIRATORY INFECTION, UNSPE 11/27/2018 SOFYA, FAVIAN FRAME STRIPPER Ot J44.9 CHRONIC OBSTRUCTIVE PULMONARY DISEASE, U 11/27/2018 FAVIAN COWART FRAME STRIPPER Ot R05 COUGH 11/27/2018 SOFYA, FAVIAN FRAME STRIPPER Ot S12.100A UNSP DISP FX OF SECOND CERVICAL VERTEBRA 11/27/2018 SOFYA, FAVIAN FRAME STRIPPER Ot W19.XXXA UNSPECIFIED FALL, INITIAL ENCOUNTER 11/27/2018 FAVIAN COWART FRAME STRIPPER Ot 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 11/27/2018 FAVIAN COWART FRAME STRIPPER Ot Z82.49 FAMILY HX OF ISCHEM HEART DIS AND OTH DI 11/27/2018 SOFYAFAVIAN Bustos FRAME STRIPPER Ot Z85.118 PERSONAL HISTORY OF MALIGNANT NEOPLASM O 11/27/2018 FAVIAN COWART FRAME STRIPPER Ot Z87.81 PERSONAL HISTORY OF (HEALED) TRAUMATIC F 11/27/2018 SOFYA FAVIAN FRAME STRIPPER Ot Z88.6 ALLERGY STATUS TO ANALGESIC AGENT [...] CHEMOTHERAP 12/10/2018 STEPHEN PRICE Ot Z79.899 OTHER SKILLED NURSING (CURRENT) DRUG THERAPY 12/10/2018 STEPHEN PRICE Ot [...] INITIAL ENCOUNTER 01/09/2019 FAVIAN COWART Ot 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 01/09/2019 FAVIAN [...] MALIGNANT NEOPLASM OF UNSPECIF 01/18/2019 SOFYA, FAVIAN FRAME STRIPPER Ot E78.00 PURE HYPERCHOLESTEROLEMIA, UNSPECIFIED 01/18/2019 SOFYA FAVIAN FRAME STRIPPER Ot G40.909 EPILEPSY, UNSP, NOT INTRACTABLE, WITHOUT 01/18/2019 FAVIAN COWART FRAME STRIPPER Ot G62.9 POLYNEUROPATHY, UNSPECIFIED 01/18/2019 FAVIAN COWART FRAME STRIPPER Ot I10 ESSENTIAL (PRIMARY) HYPERTENSION 01/18/2019 FAVIAN COWARTP Ot J44.9 CHRONIC OBSTRUCTIVE PULMONARY DISEASE, U 01/18/2019 FAVIAN COWART FRAME STRIPPER Ot M19.012 PRIMARY OSTEOARTHRITIS, LEFT SHOULDER 01/18/2019 FAVIAN COWART FRAME STRIPPER Ot M25.512 PAIN IN LEFT SHOULDER 01/18/2019 FAVIAN COWART FRAME STRIPPER Ot M75.102 UNSP ROTATR-CUFF TEAR/RUPTR OF LEFT SHOU 01/18/2019 FAVIAN COWART FRAME STRIPPER Ot W19.XXXA UNSPECIFIED FALL, INITIAL ENCOUNTER 01/18/2019 FAVIAN COWARTP Ot Z79.51 SKILLED NURSING (CURRENT) USE OF INHALED STERO 01/18/2019 FAVIAN COWART FRAME STRIPPER Ot Z82.49 FAMILY HX OF ISCHEM HEART DIS AND OTH DI 01/18/2019 FAVIAN COWART FRAME STRIPPER Ot Z87.891 PERSONAL HISTORY OF NICOTINE DEPENDENCE 01/18/2019 FAVIAN COWART FRAME STRIPPER Ot Z88.6 ALLERGY STATUS TO ANALGESIC AGENT STATUS 01/18/2019 FAVIAN COWART FRAME STRIPPER Ot Z99.81 DEPENDENCE ON SUPPLEMENTAL OXYGEN 01/21/2019 FAVIAN COWART FRAME STRIPPER Ot C34.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 01/21/2019 AFVIAN COWART FRAME STRIPPER Ot C79.9 SECONDARY MALIGNANT NEOPLASM OF UNSPECIF 01/21/2019 FAVIAN COWART FRAME STRIPPER Ot E78.00 PURE HYPERCHOLESTEROLEMIA, UNSPECIFIED 01/21/2019 FAVIAN COWART FRAME STRIPPER Ot G40.909 EPILEPSY, UNSP, NOT INTRACTABLE, WITHOUT 01/21/2019 FAVIAN COWART FRAME STRIPPER Ot G62.9 POLYNEUROPATHY, UNSPECIFIED 01/21/2019 SOFYA FAVIAN FRAME STRIPPER Ot I10 ESSENTIAL (PRIMARY) HYPERTENSION 01/21/2019 FAVIAN COWART FRAME STRIPPER Ot J44.9 CHRONIC OBSTRUCTIVE PULMONARY DISEASE, U 01/21/2019 FAVIAN COWART FRAME STRIPPER Ot M19.012 PRIMARY OSTEOARTHRITIS, LEFT SHOULDER 01/21/2019 FAVIAN COWART Ot M25.512 PAIN IN LEFT SHOULDER 01/21/2019 SOFYAFAVIAN Bustos Ot M75.102 UNSP ROTATR-CUFF TEAR/RUPTR OF LEFT SHOU 01/21/2019 SOFYAFAVIAN Bustos Ot W19.XXXA UNSPECIFIED FALL, INITIAL ENCOUNTER 01/21/2019 SOFYAFAVIAN Bustos Ot 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 01/21/2019 FAVIAN [...] CHEMOTHERAP 02/17/2019 STEPHEN PRICE Ot Z79.899 OTHER SKILLED NURSING (CURRENT) DRUG THERAPY 02/17/2019 STEPHEN PRICE Ot [...] ANTINEOPLASTIC CHEMOTHERAP 02/18/2019 DEESTEPHEN Ot Z79.899 OTHER SENIOR PAYROLL SPECIALIST (CURRENT) DRUG THERAPY 02/18/2019 DEE, STEPHEN Muniz [...] NOT INTRACTABLE, WITHOUT 02/20/2019 GELLENDER DO, AMANDEEP iPneda Ot G47.30 SLEEP APNEA, UNSPECIFIED 02/20/2019 GELLENDER [...] 02/20/2019 GELLENDER DO, AMANDEEP Pineda Ot Z79.51 SKILLED NURSING (CURRENT) USE OF INHALED STERO 02/20/2019 GELLENDER DO, AMANDEEP Pineda Ot Z85.118 PERSONAL HISTORY OF MALIGNANT NEOPLASM O 02/20/2019 GELLENDER DO, AMANDEEP Pineda Ot Z87.891 PERSONAL HISTORY OF NICOTINE DEPENDENCE 02/20/2019 CHADWICK LASSITER, AMANDEEP Pineda Ot Z99.81 DEPENDENCE ON SUPPLEMENTAL OXYGEN 02/21/2019 CHADWICK LASSITER, AMANDEEP Pineda Ot M47.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 02/21/2019 [facility], AMANDEEP Pineda Ot S12.110A ANTERIOR DISPLACED TYPE II DENS FRACTURE 02/21/2019 [place]ADWICK LASSITER, AMANDEEP Pineda Ot W19.XXXA UNSPECIFIED FALL, INITIAL ENCOUNTER 03/12/2019 CHADWICK LASSITER, AMANDEEP Pineda Ot R56.9 UNSPECIFIED CONVULSIONS 03/12/2019 [facility] AM[facility]EP Pineda Ot F17.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, UNSPECIFIED, UNCOMP 03/12/2019 [facility] , AMANDEEP Pineda Ot J44.9 CHRONIC OBSTRUCTIVE PULMONARY DISEASE, U 03/12/2019 [facility] , AMANDEEP Pineda Ot R63.4 ABNORMAL WEIGHT LOSS 03/12/2019 [facility] AMANDEEP Pineda Ot J44.9 CHRONIC OBSTRUCTIVE PULMONARY DISEASE, U 03/12/2019 [facility] AMANDEEP Pineda Ot R63.4 ABNORMAL WEIGHT LOSS 03/12/2019 [facility], AMANDEEP Pineda Ot R63.4 ABNORMAL WEIGHT LOSS 03/12/2019 [facility], AMANDEEP Pineda Ot G40.909 EPILEPSY, UNSP, NOT INTRACTABLE, WITHOUT 03/12/2019 [facility] AMANDEEP Pineda Ot J44.9 CHRONIC OBSTRUCTIVE PULMONARY DISEASE, U 03/12/2019 [facility] AMANDEEP Pineda Ot E87.1 HYPO-OSMOLALITY AND HYPONATREMIA 03/12/2019 CHADWICK LASSITERAMANDEEP Ot G40.909 EPILEPSY, UNSP, NOT INTRACTABLE, WITHOUT 03/12/2019 [facility], AMANDEEP Pineda Ot J44.9 CHRONIC OBSTRUCTIVE PULMONARY DISEASE, U 03/12/2019 [facility] AMANDEEP Pineda Ot G40.909 EPILEPSY, UNSP, NOT INTRACTABLE, WITHOUT 03/12/2019 [facility] AMANDEEP Ot J34.89 OTHER SPECIFIED DISORDERS OF [...] OBSTRUCTIVE PULMONARY DISEASE, U 03/12/2019 NINA ANAYA COMMERCIAL HVAC SERVICE TECHNICIAN Ot M79.604 PAIN IN RIGHT LEG 03/12/2019 NINA ANAYA COMMERCIAL HVAC SERVICE TECHNICIAN Ot M79.605 PAIN IN LEFT LEG 03/12/2019 NINA ANAYA COMMERCIAL HVAC SERVICE TECHNICIAN Ot M79.89 OTHER SPECIFIED SOFT TISSUE DISORDERS 03/12/2019 NINA ANAYA COMMERCIAL HVAC SERVICE TECHNICIAN Ot R91.8 OTHER NONSPECIFIC ABNORMAL FINDING OF DAVID 03/12/2019 SIVA RESENDIZP Ot C34.12 MALIGNANT NEOPLASM OF UPPER LOBE, LEFT B 03/12/2019 SIVA RESENDIZ FRAME STRIPPER Ot C79.51 SECONDARY MALIGNANT NEOPLASM OF BONE 03/12/2019 AMANDEEP GENAO DO Ot B35.1 TINEA UNGUIUM 03/12/2019 SIVA RESENDIZ FRAME STRIPPER Ot C34.12 MALIGNANT NEOPLASM OF UPPER LOBE, LEFT B 03/12/2019 SIVA RESENDIZ Ot C79.51 SECONDARY MALIGNANT NEOPLASM OF BONE 03/12/2019 SIVA RESENDIZ Ot C34.12 MALIGNANT NEOPLASM OF UPPER LOBE, LEFT B 03/12/2019 SIVA RESENDIZ Ot C34.12 MALIGNANT NEOPLASM OF UPPER LOBE, LEFT B 03/12/2019 SIVA RESENDIZ Ot C79.51 SECONDARY MALIGNANT NEOPLASM OF BONE 03/12/2019 [facility] AMANDEEP LASSITER Ot M43.12 SPONDYLOLISTHESIS, CERVICAL REGION 03/12/2019 [facility] AMANDEEP LASSITER Ot M47.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 03/12/2019 [facility] LASSITER Ot S19.9XXA UNSPECIFIED INJURY OF NECK, INITIAL ENCO 03/12/2019 SIVA RESENDIZ Ot C34.12 MALIGNANT NEOPLASM OF UPPER LOBE, LEFT B 03/12/2019 SIVA RESENDIZ Ot C79.51 SECONDARY MALIGNANT NEOPLASM OF BONE 03/12/2019 [facility]DEEP Ot M19.011 PRIMARY OSTEOARTHRITIS, RIGHT SHOULDER 03/12/2019 [facility] Ot M79.621 PAIN IN RIGHT UPPER ARM 03/12/2019 [facility] Ot S79.911A UNSPECIFIED INJURY OF RIGHT HIP, INITIAL 03/12/2019 CHADWICK LASSITERAMANDEEP Ot W19.XXXA UNSPECIFIED FALL, INITIAL ENCOUNTER 03/12/2019 JOSEBRAYAN AMANDEEP LASSITER Ot R05 COUGH 03/12/2019 CHADWICK LASSITERAMANDEEP Ot R91.8 OTHER NONSPECIFIC ABNORMAL FINDING OF DAVID 03/12/2019 [facility] Ot Z95.828 PRESENCE OF OTHER VASCULAR IMPLANTS AND 03/12/2019 SIVA RESENDIZ Ot J98.11 ATELECTASIS 03/12/2019 SIVA RESENDIZ Ot M43.12 SPONDYLOLISTHESIS, CERVICAL REGION 03/12/2019 SIVA RESENDIZ Ot M47.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 03/12/2019 SIVA RESENDIZ Ot S12.190A OTH DISP FX OF SECOND CERVICAL VERTEBRA, 03/12/2019 SIVA RESENDIZ FRAME STRIPPER Ot W19.XXXA UNSPECIFIED FALL, INITIAL ENCOUNTER 03/12/2019 SIVA RESENDIZ FRAME STRIPPER Ot Z95.828 PRESENCE OF OTHER VASCULAR IMPLANTS AND 03/12/2019 NINA ANAYA APRN Ot C34.12 MALIGNANT NEOPLASM OF UPPER LOBE, LEFT B 03/12/2019 NINA ANAYA COMMERCIAL HVAC SERVICE TECHNICIAN Ot F17.201 NICOTINE DEPENDENCE, UNSPECIFIED, IN REM 03/12/2019 NINA ANAYA COMMERCIAL HVAC SERVICE TECHNICIAN Ot I25.10 ATHSCL HEART DISEASE OF [place] CORONARY 03/12/2019 NINA ANAYA APRN Ot I70.0 [...] CAR Ot I25.10 ATHSCL HEART DISEASE OF [place] CORONARY 03/12/2019 EFRAIN RESENDIZBRENDA Jennifer FRAME STRIPPER Ot I70.0 ATHEROSCLEROSIS OF [place] 03/12/2019 EFRAIN RESENDIZBRENDA Jennifer ROSASP Ot J43.9 EMPHYSEMA, UNSPECIFIED 03/12/2019 SIVA RESENDIZP Ot N28.1 CYST OF KIDNEY, ACQUIRED 03/12/2019 SIVA RESENDIZP Ot Z01.89 ENCOUNTER FOR OTHER SPECIFIED SPECIAL EX 03/12/2019 RESENDIZEFRAINBRENDA Rodriguez FRAME STRIPPER Ot 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 03/12/2019 EFRAIN RESENDIZBRENDA Jennifer CAR Ot Z85.118 PERSONAL HISTORY OF MALIGNANT NEOPLASM O 03/12/2019 CHADWICK LASSITERAMANDEEP Ot M19.012 PRIMARY OSTEOARTHRITIS, LEFT SHOULDER 03/12/2019 [facility] Ot S49.92XA UNSP INJURY OF LEFT SHOULDER AND UPPER A 03/12/2019 [facility] AMANDEEP Ot W19.XXXA UNSPECIFIED FALL, INITIAL ENCOUNTER 03/12/2019 CHADWICK LASSITERAMANDEEP Ot M47.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 03/12/2019 [facility] Ot S12.110D ANT DISPL TYPE II DENS FRACTURE, SUBS FO 03/12/2019 CHADWICK LASSITERAMANDEEP Ot W19.XXXD UNSPECIFIED FALL, SUBSEQUENT ENCOUNTER 03/12/2019 CHADWICK LASSITERAMANDEEP Ot M47.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 03/12/2019 [facility] Ot S12.110A ANTERIOR DISPLACED TYPE II DENS FRACTURE 03/12/2019 [facility] Ot W19.XXXA UNSPECIFIED FALL, INITIAL ENCOUNTER 03/12/2019 [...] CHEMOTHERAP 03/12/2019 STEPHEN PRICE Ot Z79.899 OTHER SENIOR PAYROLL SPECIALIST (CURRENT) DRUG THERAPY 03/12/2019 STEPHEN PRICE Ot [...] PAIN IN LEFT LEG 03/12/2019 NINA ANAYA COMMERCIAL HVAC SERVICE TECHNICIAN Ot M79.89 OTHER SPECIFIED SOFT TISSUE DISORDERS 03/12/2019 NINA ANAYA COMMERCIAL HVAC SERVICE TECHNICIAN Ot R91.8 OTHER NONSPECIFIC ABNORMAL FINDING OF DAVID 03/12/2019 SVIA RESENDIZP Ot C34.12 MALIGNANT NEOPLASM OF UPPER LOBE, LEFT B 03/12/2019 SIVA RESENDIZP Ot C79.51 SECONDARY MALIGNANT NEOPLASM OF BONE 03/12/2019 AMANDEEP GENAO DO Ot B35.1 TINEA UNGUIUM 03/12/2019 SIVA RESENDIZ FRAME STRIPPER Ot C34.12 MALIGNANT NEOPLASM OF UPPER LOBE, [...] SPONDYLOSIS W/O MYELOPATHY OR RADICULOPA 03/12/2019 SIVA ERSENDIZ Ot S12.190A OTH DISP FX OF SECOND CERVICAL VERTEBRA, 03/12/2019 RESENDIZ, HILAH S FRAME STRIPPER Ot W19.XXXA UNSPECIFIED FALL, INITIAL ENCOUNTER 03/12/2019 SIVA RESENDIZ JOCELINE Ot Z95.828 PRESENCE OF OTHER VASCULAR IMPLANTS AND 03/12/2019 NINA ANAYA APRN Ot C34.12 MALIGNANT NEOPLASM OF UPPER LOBE, LEFT B 03/12/2019 NINA ANAYA APRN Ot F17.201 NICOTINE DEPENDENCE, UNSPECIFIED, IN REM 03/12/2019 NINA ANAYA APRN Ot I25.10 ATHSCL HEART DISEASE OF [place] CORONARY 03/12/2019 NINA ANAYA APRN Ot I70.0 [...] CAR Ot I25.10 ATHSCL HEART DISEASE OF [place] CORONARY 03/12/2019 SIVA RESENDIZP Ot I70.0 ATHEROSCLEROSIS OF [place] 03/12/2019 SIVA RESENDIZP Ot J43.9 EMPHYSEMA, UNSPECIFIED 03/12/2019 SIVA RESENDIZ Ot N28.1 CYST OF KIDNEY, ACQUIRED 03/12/2019 SIVA RESENDIZP Ot Z01.89 ENCOUNTER FOR OTHER SPECIFIED SPECIAL EX 03/12/2019 EFRAIN RESENDIZBRENDA Jennifer ROSASP Ot Z79.51 SKILLED NURSING (CURRENT) USE OF INHALED STERO 03/12/2019 SIVA [...] M47.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 03/12/2019 [facility] Ot S12.110A ANTERIOR DISPLACED TYPE II DENS FRACTURE 03/12/2019 [facility] AMANDEEP Ot W19.XXXA UNSPECIFIED FALL, INITIAL ENCOUNTER [...] 03/12/2019 DEE BOBAN N Ot Z79.899 OTHER SENIOR PAYROLL SPECIALIST (CURRENT) DRUG THERAPY 03/12/2019 DEE SABASAN N Ot Z87.891 PERSONAL HISTORY OF NICOTINE DEPENDENCE 03/16/2019 HÉCTOR NINA E COMMERCIAL HVAC SERVICE TECHNICIAN Ot C34.12 MALIGNANT NEOPLASM OF UPPER LOBE, LEFT B 03/16/2019 HÉCTOR, NINA E COMMERCIAL HVAC SERVICE TECHNICIAN Ot F17.201 NICOTINE DEPENDENCE, UNSPECIFIED, IN REM 03/16/2019 HÉCTOR NINA E COMMERCIAL HVAC SERVICE TECHNICIAN Ot J18.9 PNEUMONIA, UNSPECIFIED ORGANISM 03/16/2019 HÉCTOR, NINA E COMMERCIAL HVAC SERVICE TECHNICIAN Ot J44.1 CHRONIC OBSTRUCTIVE PULMONARY DISEASE W 03/16/2019 HÉCTOR, NINA E COMMERCIAL HVAC SERVICE TECHNICIAN Ot J96.20 ACUTE AND CHR RESP FAILURE, UNSP W HYPOX 03/19/2019 HÉCTOR NINA E COMMERCIAL HVAC SERVICE TECHNICIAN Ot C34.12 MALIGNANT NEOPLASM OF UPPER LOBE, LEFT B 03/19/2019 HÉCTOR, NINA E COMMERCIAL HVAC SERVICE TECHNICIAN Ot F17.201 NICOTINE DEPENDENCE, UNSPECIFIED, IN REM 03/19/2019 HÉCTOR, NINA E COMMERCIAL HVAC SERVICE TECHNICIAN Ot J18.9 PNEUMONIA, UNSPECIFIED ORGANISM 03/19/2019 HÉCTOR NINA E COMMERCIAL HVAC SERVICE TECHNICIAN Ot J44.1 CHRONIC OBSTRUCTIVE PULMONARY DISEASE W 03/19/2019 HÉCTOR, NINA E COMMERCIAL HVAC SERVICE TECHNICIAN Ot J96.20 ACUTE AND CHR RESP FAILURE, [...] 03/30/2019 DEE BOBAN N Ot Z79.899 OTHER SENIOR PAYROLL SPECIALIST (CURRENT) DRUG THERAPY 03/30/2019 STEPHEN PRICE Ot [...] CHEMOTHERAP 04/04/2019 STEPHEN PRICE Ot Z79.899 OTHER SKILLED NURSING (CURRENT) DRUG THERAPY 04/04/2019 STEPHEN PRICE Ot [...] RESENDIZP Ot I25.10 ATHSCL HEART DISEASE OF [place] CORONARY 04/13/2019 SIVA RESENDIZP Ot I70.0 ATHEROSCLEROSIS OF [place] 04/13/2019 SIVA RESENDIZP Ot J43.9 EMPHYSEMA, UNSPECIFIED 04/13/2019 SIVA RESENDIZ Ot N28.1 CYST OF KIDNEY, ACQUIRED 04/13/2019 SIVA RESENDIZP Ot Z01.89 ENCOUNTER FOR OTHER SPECIFIED SPECIAL EX 04/13/2019 SIVA RESENDIZ FRAME STRIPPER Ot Z79.51 SKILLED NURSING (CURRENT) USE OF INHALED STERO 04/13/2019 SIVA RESENDIZ FRAME STRIPPER Ot Z85.118 PERSONAL HISTORY OF MALIGNANT NEOPLASM [...] 04/22/2019 MARY RIOS, STEFAN Zuniga Ot 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 04/22/2019 MARY [...] CHEMOTHERAP 05/10/2019 STEPHEN PRICE Ot Z79.899 OTHER SENIOR PAYROLL SPECIALIST (CURRENT) DRUG THERAPY 05/10/2019 STEPHEN PRICE Ot [...] 05/19/2019 GELLENDER DO, AMANDEEP Pineda Ot Z79.891 SKILLED NURSING (CURRENT) USE OF OPIATE ANALGE 05/19/2019 GELLENDER DO, AMANDEEP Pineda Ot Z79.899 OTHER SENIOR PAYROLL SPECIALIST (CURRENT) DRUG THERAPY 05/19/2019 GELLENDER DO, AMANDEEP [...] GELLENDER DO, AMANDEEP Pineda Ot Z79.891 SENIOR PAYROLL SPECIALIST (CURRENT) USE OF OPIATE ANALGE 05/19/2019 GELLENDER DO, AMANDEEP Pineda Ot Z79.899 OTHER SENIOR PAYROLL SPECIALIST (CURRENT) DRUG THERAPY 05/19/2019 GELLENDER DO, AMANDEEP [...] UNSPECIFIED FALL, INITIAL ENCOUNTER 05/31/2019 SIVA RESENDIZ FRAME STRIPPER Ot G25.5 OTHER [place] 05/31/2019 SIVA RESENDIZ FRAME STRIPPER Ot 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 MAXILLARY SINUSITIS 05/31/2019 SIVA RESENDIZ FRAME STRIPPER Ot R 51 HEADACHE 05/31/2019 SIVA RESENDIZ FRAME STRIPPER Ot W19.XXXA UNSPECIFIED FALL, INITIAL ENCOUNTER 06/01/2019 SIVA RESENDIZ FRAME STRIPPER Ot G25.5 OTHER [place] 06/01/2019 SIVA RESENDIZ FRAME STRIPPER Ot 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 MAXILLARY SINUSITIS 06/01/2019 SIVA RESENDIZ FRAME STRIPPER Ot R 51 HEADACHE 06/01/2019 SIAV RESENDIZ FRAME STRIPPER Ot W19.XXXA UNSPECIFIED FALL, INITIAL ENCOUNTER 06/04/2019 MARY RIOS, STEFAN Zuniga Ot C34.90 MALIGNANT NEOPLASM OF [facility]SP [facility] 06/04/2019 MARY RIOS, STEFAN Zuniga Ot [...] UNSP, NOT INTRACTABLE, WITHOUT 06/07/2019 ORENDER DO, MYNRA S Ot G47.30 SLEEP APNEA, UNSPECIFIED 06/07/2019 ORENDER DO, MYRNA S Ot G62.9 POLYNEUROPATHY, UNSPECIFIED 06/07/2019 ORENDER DO, MYRNA S Ot I10 ESSENTIAL (PRIMARY) HYPERTENSION 06/07/2019 ORENDER DO, MYRNA S Ot I38 ENDOCARDITIS, VALVE UNSPECIFIED 06/07/2019 ORENDER DO, MYRNA S Ot J18.9 PNEUMONIA, UNSPECIFIED ORGANISM 06/07/2019 ORENDER DO, YMRNA S Ot J43.9 EMPHYSEMA, UNSPECIFIED 06/07/2019 ORENDER [...] Ot W19.XXXA UNSPECIFIED FALL, INITIAL ENCOUNTER 06/08/2019 [facility], AMANDEEP Pineda Ot Y99.8 OTHER EXTERNAL CAUSE STATUS 06/08/2019 GELLENDER DO, AMANDEEP Pineda Ot G40.909 EPILEPSY, UNSP, NOT INTRACTABLE, WITHOUT 06/08/2019 GELLENDER DO, AMANDEEP Pineda Ot R06.02 SHORTNESS OF BREATH 06/08/2019 [facility], AMANDEEP Pineda Ot R63.4 ABNORMAL WEIGHT [...] DO Ot Z72. 0 TOBACCO USE 06/08/2019 [facility], AMANDEEP Pineda Ot J44.9 CHRONIC OBSTRUCTIVE PULMONARY DISEASE, U 06/08/2019 NINA ANAYA APRN Ot M79.604 PAIN IN RIGHT LEG 06/08/2019 NINA ANAYA APRN Ot M79.605 PAIN IN LEFT LEG 06/08/2019 NINA ANAYA APRN Ot M79.89 OTHER SPECIFIED SOFT TISSUE DISORDERS 06/08/2019 NINA ANAYA COMMERCIAL HVAC SERVICE TECHNICIAN Ot R91.8 OTHER NONSPECIFIC ABNORMAL FINDING OF DAVID 06/08/2019 SIVA RESENDIZ S FRAME STRIPPER Ot C34.12 MALIGNANT NEOPLASM OF UPPER LOBE, LEFT B 06/08/2019 SIVA RESENDIZ S FRAME STRIPPER Ot C79.51 SECONDARY MALIGNANT NEOPLASM OF BONE 06/08/2019 [facility], AMANDEEP Pineda Ot B35.1 TINEA UNGUIUM 06/08/2019 SIVA RESENDIZ S FRAME STRIPPER Ot C34.12 MALIGNANT NEOPLASM OF UPPER LOBE, LEFT B 06/08/2019 SIVA RESENDIZ S FRAME STRIPPER Ot C79.51 SECONDARY MALIGNANT NEOPLASM OF BONE 06/08/2019 SIVA RESENDIZ S FRAME STRIPPER Ot C34.12 MALIGNANT NEOPLASM OF UPPER LOBE, LEFT B 06/08/2019 SIVA RESENDIZ S FRAME STRIPPER Ot C34.12 MALIGNANT NEOPLASM OF UPPER LOBE, LEFT B 06/08/2019 MARTÍN HILBRENDA S FRAME STRIPPER Ot C79.51 SECONDARY MALIGNANT NEOPLASM OF BONE 06/08/2019 [facility], AMANDEEP Pineda Ot M43.12 SPONDYLOLISTHESIS, CERVICAL REGION 06/08/2019 [facility] Ot M47.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 06/08/2019 [facility] Ot S19.9XXA UNSPECIFIED INJURY OF NECK, INITIAL ENCO 06/08/2019 SIVA RESENDIZ S FRAME STRIPPER Ot C34.12 MALIGNANT NEOPLASM OF UPPER LOBE, LEFT B 06/08/2019 SIVA RESENDIZ S FRAME STRIPPER Ot C79.51 SECONDARY MALIGNANT NEOPLASM OF BONE 06/08/2019 [facility] Ot M19.011 PRIMARY OSTEOARTHRITIS, RIGHT SHOULDER 06/08/2019 [facility] Ot M79.621 PAIN IN RIGHT UPPER ARM [...] VASCULAR IMPLANTS AND 06/08/2019 SIVA RESENDIZ S FRAME STRIPPER Ot J98.11 ATELECTASIS 06/08/2019 SIVA RESENDIZ S FRAME STRIPPER Ot M43.12 SPONDYLOLISTHESIS, CERVICAL REGION 06/08/2019 SIVA RESENDIZ S FRAME STRIPPER Ot M47.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 06/08/2019 SIVA RESENDIZ S FRAME STRIPPER Ot S12.190A OTH DISP FX OF SECOND CERVICAL VERTEBRA, 06/08/2019 SIVA RESENDIZ S FRAME STRIPPER Ot W19.XXXA UNSPECIFIED FALL, INITIAL ENCOUNTER 06/08/2019 SIVA RESENDIZ FRAME STRIPPER Ot Z95.828 PRESENCE OF OTHER VASCULAR IMPLANTS AND 06/08/2019 NINA ANAYA APRN Ot C34.12 MALIGNANT NEOPLASM OF UPPER LOBE, LEFT B 06/08/2019 NINA ANAYA COMMERCIAL HVAC SERVICE TECHNICIAN Ot F17.201 NICOTINE DEPENDENCE, UNSPECIFIED, IN REM 06/08/2019 NINA ANAYA COMMERCIAL HVAC SERVICE TECHNICIAN Ot I25.10 ATHSCL HEART DISEASE OF [place] CORONARY 06/08/2019 NINA ANAYA COMMERCIAL HVAC SERVICE TECHNICIAN Ot I70.0 ATHEROSCLEROSIS OF [place] 06/08/2019 NINA ANAYA COMMERCIAL HVAC SERVICE TECHNICIAN Ot J18.9 PNEUMONIA, UNSPECIFIED ORGANISM 06/08/2019 NINA ANAYA COMMERCIAL HVAC SERVICE TECHNICIAN Ot J43.9 EMPHYSEMA, UNSPECIFIED 06/08/2019 NINA ANAYA COMMERCIAL HVAC SERVICE TECHNICIAN Ot J96.20 ACUTE AND CHR RESP FAILURE, UNSP W HYPOX 06/08/2019 NINA ANAYA COMMERCIAL HVAC SERVICE TECHNICIAN Ot J98.4 OTHER DISORDERS OF LUNG 06/08/2019 NINA ANAYA COMMERCIAL HVAC SERVICE TECHNICIAN Ot R91.8 OTHER NONSPECIFIC ABNORMAL FINDING OF [...] UPPER LOBE, LEFT B 06/08/2019 NINA ANAYA COMMERCIAL HVAC SERVICE TECHNICIAN Ot F17.201 NICOTINE DEPENDENCE, UNSPECIFIED, IN REM 06/08/2019 NINA ANAYA COMMERCIAL HVAC SERVICE TECHNICIAN Ot J18.9 PNEUMONIA, UNSPECIFIED ORGANISM 06/08/2019 NINA ANAYA COMMERCIAL HVAC SERVICE TECHNICIAN Ot J44.1 CHRONIC OBSTRUCTIVE PULMONARY DISEASE W 06/08/2019 NINA ANAYA COMMERCIAL HVAC SERVICE TECHNICIAN Ot J96.20 ACUTE AND CHR RESP FAILURE, UNSP W HYPOX 06/08/2019 AMANDEEP GENAO DO Ot R56.9 UNSPECIFIED CONVULSIONS 06/08/2019 SIVA RESENDIZP Ot I25.10 ATHSCL HEART DISEASE OF [place] CORONARY 06/08/2019 SIVA RESENDIZ FRAME STRIPPER Ot I70.0 ATHEROSCLEROSIS OF [place] 06/08/2019 SIVA RESENDIZ FRAME STRIPPER Ot J43.9 EMPHYSEMA, UNSPECIFIED 06/08/2019 SIVA RESENDIZ FRAME STRIPPER Ot N28.1 CYST OF KIDNEY, ACQUIRED 06/08/2019 SIVA RESENDIZ FRAME STRIPPER Ot Z01.89 ENCOUNTER FOR OTHER SPECIFIED SPECIAL EX 06/08/2019 RESENDIZ, HILAH S FRAME STRIPPER Ot 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 06/08/2019 SIVA RESENDIZ FRAME STRIPPER Ot Z85.118 PERSONAL HISTORY OF MALIGNANT NEOPLASM [...] 06/08/2019 STEPHEN PRICE Ot Z79.899 OTHER SENIOR PAYROLL SPECIALIST (CURRENT) DRUG THERAPY 06/08/2019 STEPHEN PRICE Ot Z87.891 PERSONAL HISTORY OF NICOTINE DEPENDENCE 06/08/2019 STEPHEN PRICE Ot Z92.21 PERSONAL HISTORY OF ANTINEOPLASTIC CHEMO 06/08/2019 SIVA RESENDIZP Ot M19.072 PRIMARY OSTEOARTHRITIS, LEFT ANKLE AND F 06/08/2019 RESENDIZSIVA Rodriguez FRAME STRIPPER Ot W19.XXXA UNSPECIFIED FALL, INITIAL ENCOUNTER 06/08/2019 SIVA RESENDIZ FRAME STRIPPER Ot G25.5 OTHER [place] 06/08/2019 SIVA RESENDIZ FRAME STRIPPER Ot 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 MAXILLARY SINUSITIS 06/08/2019 SIVA RESENDIZ FRAME STRIPPER Ot R 51 HEADACHE 06/08/2019 SIVA RESENDIZ FRAME STRIPPER Ot W19.XXXA UNSPECIFIED FALL, INITIAL ENCOUNTER 06/09/2019 [...] CHEMOTHERAP 06/10/2019 STEPHEN PRICE Ot Z79.899 OTHER SENIOR PAYROLL SPECIALIST (CURRENT) DRUG THERAPY 06/10/2019 STEPHEN PRICE Ot [...] 06/11/2019 GELLENDER DO, AMANDEEP Pineda Ot Z79.891 SENIOR PAYROLL SPECIALIST (CURRENT) USE OF OPIATE ANALGE 06/11/2019 GELLENDER DO, AMANDEEP Pineda Ot Z79.899 OTHER SENIOR PAYROLL SPECIALIST (CURRENT) DRUG THERAPY 06/11/2019 GELLENDER DO, AMANDEEP [...] 06/11/2019 GELLENDER DO, AMANDEEP Miriam Ot Z79.891 SKILLED NURSING (CURRENT) USE OF OPIATE ANALGE 06/11/2019 DOCTORS HOSPITALLENDER DO, AMANDEEP Pineda Ot Z79.899 OTHER SENIOR PAYROLL SPECIALIST (CURRENT) DRUG THERAPY 06/11/2019 DOCTORS HOSPITALLENDER DO, AMANDEEP Pineda Ot Z83.3 FAMILY HISTORY OF DIABETES MELLITUS 06/11/2019 DOCTORS HOSPITALLENDER DO, AMANDEEP Pineda Ot Z85.830 PERSONAL HISTORY OF MALIGNANT NEOPLASM O 06/11/2019 GELLENDER DO, AMANDEEP Pineda Ot Z88.6 ALLERGY STATUS TO ANALGESIC AGENT STATUS 06/11/2019 GELLENDER DO, AMANDEEP Pineda Ot Z92.21 PERSONAL HISTORY OF ANTINEOPLASTIC CHEMO 06/14/2019 SIVA RESENDIZ Ot I25.10 ATHSCL HEART DISEASE OF [place] CORONARY 06/14/2019 SIVA RESENDIZP Ot I70.0 ATHEROSCLEROSIS OF [place] 06/14/2019 SIVA RESENDIZP Ot J43.9 EMPHYSEMA, UNSPECIFIED 06/14/2019 SIVA RESENDIZP Ot N28.1 CYST OF KIDNEY, ACQUIRED 06/14/2019 SIVA RESENDIZP Ot Z01.89 ENCOUNTER FOR OTHER SPECIFIED SPECIAL EX 06/14/2019 SIVA RESENDIZP Ot Z79.51 SKILLED NURSING (CURRENT) USE OF INHALED STERO 06/14/2019 SIVA RESENDIZ FRAME STRIPPER Ot Z85.118 PERSONAL HISTORY OF MALIGNANT NEOPLASM [...] 06/20/2019 STEPHEN PRICE N Ot Z79.899 OTHER SKILLED NURSING (CURRENT) DRUG THERAPY 06/20/2019 STEPHEN PRICE N [...] 06/21/2019 STEPHEN PRICE N Ot Z79.899 OTHER SKILLED NURSING (CURRENT) DRUG THERAPY 06/21/2019 STEPHEN PRICE N [...] OF MALIGNANT NEOPLASM O 06/23/2019 MARCO RIOS, BALIBR Pineda Ot Z87.891 PERSONAL HISTORY OF NICOTINE [...] UNSP, NOT INTRACTABLE, WITHOUT 06/24/2019 MARCO RIOS, ABLBIR Pineda Ot G47.30 SLEEP APNEA, UNSPECIFIED 06/24/2019 MARCO RISO, BALBIR Pineda Ot G62.9 POLYNEUROPATHY, UNSPECIFIED 06/24/2019 MARCO RIOS, BLABIR Pineda Ot I1 0 ESSENTIAL (PRIMARY) HYPERTENSION [...] Pineda Ot G47.30 SLEEP APNEA, UNSPECIFIED 06/25/2019 BALIBR LARA MD A Ot G62.9 POLYNEUROPATHY, UNSPECIFIED [...] STEPHEN PRICE Ot E78.5 HYPERLIPIDEMIA, UNSPECIFIED 07/14/2019 DEESTEPHEN Ot G40.909 EPILEPSY, UNSP, NOT INTRACTABLE, WITHOUT 07/14/2019 DEESTEPHEN N Ot J43.9 EMPHYSEMA, UNSPECIFIED 07/14/2019 DEESTEPHEN N Ot Z51.11 ENCOUNTER FOR ANTINEOPLASTIC CHEMOTHERAP 07/14/2019 DEESTEPHEN N Ot Z79.899 OTHER SKILLED NURSING (CURRENT) DRUG THERAPY 07/14/2019 DEESTEPHEN N Ot Z87.891 PERSONAL HISTORY OF NICOTINE DEPENDENCE 07/14/2019 STEPHEN PRICE N Ot Z92.21 PERSONAL HISTORY OF ANTINEOPLASTIC CHEMO 07/19/2019 HÉCTORIRMANINA E COMMERCIAL [employer] SERVICE TECHNICIAN Ot C34.12 MALIGNANT NEOPLASM OF UPPER LOBE, LEFT B 07/19/2019 HÉCTORIRMA TATUMINE Juli COMMERCIAL HV[employer] SERVICE TECHNICIAN Ot F17.201 NICOTINE DEPENDENCE, UNSPECIFIED, IN REM 07/19/2019 HÉCTORIRMANINA E COMMERCIAL HVAC SERVICE TECHNICIAN Ot J18.9 PNEUMONIA, UNSPECIFIED ORGANISM 07/19/2019 HÉCTORIRMA TATUMINE Juli COMMERCIAL HV[employer] SERVICE TECHNICIAN Ot J44.1 CHRONIC OBSTRUCTIVE PULMONARY DISEASE W 07/19/2019 HÉCTOR NINA E COMMERCIAL HV[employer] SERVICE TECHNICIAN Ot J96.20 ACUTE AND CHR RESP FAILURE, UNSP W HYPOX 07/21/2019 STEPHEN PRICE Ot C34.12 MALIGNANT NEOPLASM OF UPPER LOBE, LEFT B 07/21/2019 STEPHEN PRICE Ot C79.51 SECONDARY MALIGNANT NEOPLASM OF BONE 07/21/2019 STEPHEN PRICE Ot E78.5 HYPERLIPIDEMIA, UNSPECIFIED 07/21/2019 STEPHEN PRICE Ot G40.909 EPILEPSY, UNSP, NOT INTRACTABLE, WITHOUT 07/21/2019 STEPHEN PRICE N Ot J43.9 EMPHYSEMA, UNSPECIFIED 07/21/2019 DEESTEPHEN N Ot Z51.11 ENCOUNTER FOR ANTINEOPLASTIC CHEMOTHERAP 07/21/2019 STEPHEN PRICE N Ot Z79.899 OTHER SKILLED NURSING (CURRENT) DRUG THERAPY 07/21/2019 STEPHEN PRICE N Ot Z87.891 PERSONAL HISTORY OF NICOTINE DEPENDENCE 07/21/2019 STEPHEN PRICE N Ot Z92.21 PERSONAL HISTORY OF ANTINEOPLASTIC CHEMO 07/26/2019 MYRNA MERCADO DO Ot C34.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 07/26/2019 ORENDER DO, MYRNA S Ot C79.51 SECONDARY MALIGNANT NEOPLASM OF BONE 07/26/2019 ORENDER DO, MYRNA S Ot E78.00 PURE HYPERCHOLESTEROLEMIA, UNSPECIFIED 07/26/2019 ORENDER DO, MYRNA S Ot F17.210 NICOTINE DEPENDENCE, CIGARETTES, UNCOMPL 07/26/2019 ORENDER DO, MYRNA S Ot G14 POSTPOLIO SYNDROME 07/26/2019 ORENDER DO, MYRNA S Ot G40.909 EPILEPSY, UNSP, NOT INTRACTABLE, WITHOUT 07/26/2019 ORENDER DO, MYRNA S Ot G47.30 SLEEP APNEA, UNSPECIFIED 07/26/2019 ORENDER DO, MYRNA S Ot G62.9 POLYNEUROPATHY, UNSPECIFIED 07/26/2019 ORENDER DO, MYRNA S Ot I10 ESSENTIAL (PRIMARY) HYPERTENSION 07/26/2019 ORENDER DO, MYRNA S Ot I38 ENDOCARDITIS, VALVE UNSPECIFIED 07/26/2019 ORENDER DO, MYRNA S Ot J18.9 PNEUMONIA, UNSPECIFIED ORGANISM 07/26/2019 ORENDER DO, MYRNA S Ot J44.0 CHR OBSTRUCTIVE PULMON DISEASE WITH (ACU 07/26/2019 ORENDER DO, MYRNA S Ot J44.1 CHRONIC OBSTRUCTIVE PULMONARY DISEASE W 07/26/2019 ORENDER DO, MYRNA S Ot M19.91 PRIMARY OSTEOARTHRITIS, UNSPECIFIED SITE 07/26/2019 ORENDER DO, MYRNA S Ot R01.1 CARDIAC MURMUR, UNSPECIFIED 07/26/2019 ORENDER DO, MYRNA S Ot R06.03 ACUTE RESPIRATORY DISTRESS 07/26/2019 ORENDER DO, MYRNA S Ot Z92.21 PERSONAL HISTORY OF ANTINEOPLASTIC CHEMO 07/26/2019 ORENDER DO, MYRNA S Ot C34.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 07/26/2019 ORENDER DO, MYRNA S Ot C79.51 SECONDARY MALIGNANT NEOPLASM OF BONE 07/26/2019 ORENDER DO, MYRNA S Ot E78.00 PURE HYPERCHOLESTEROLEMIA, UNSPECIFIED 07/26/2019 ORENDER DO, MYRNA S Ot F17.210 NICOTINE DEPENDENCE, CIGARETTES, UNCOMPL 07/26/2019 ORENDER DO, MYRNA S Ot G14 POSTPOLIO SYNDROME 07/26/2019 ORENDER DO, MYRNA S Ot G40.909 EPILEPSY, UNSP, NOT INTRACTABLE, WITHOUT 07/26/2019 ORENDER DO, MYRNA S Ot G47.30 SLEEP APNEA, UNSPECIFIED 07/26/2019 ORENDER DO, MYRNA S Ot G62.9 POLYNEUROPATHY, UNSPECIFIED 07/26/2019 ORENDER DO, MYRNA S Ot I10 ESSENTIAL (PRIMARY) HYPERTENSION 07/26/2019 ORENDER DO, MYRNA S Ot I38 ENDOCARDITIS, VALVE UNSPECIFIED 07/26/2019 ORENDER DO, MYRNA S Ot J18.9 PNEUMONIA, UNSPECIFIED ORGANISM 07/26/2019 ORENDER DO, MYRNA S Ot J44.0 CHR OBSTRUCTIVE PULMON DISEASE WITH (ACU 07/26/2019 ORENDER DO, MYRNA S Ot J44.1 CHRONIC OBSTRUCTIVE PULMONARY DISEASE W 07/26/2019 ORENDER DO, MYRNA S Ot M19.91 PRIMARY OSTEOARTHRITIS, UNSPECIFIED SITE 07/26/2019 ORENDER DO, MYRNA S Ot M54.2 CERVICALGIA 07/26/2019 ORENDER DO, MYRNA S Ot R01.1 CARDIAC MURMUR, UNSPECIFIED 07/26/2019 ORENDER DO, MYRNA S Ot R06.03 ACUTE RESPIRATORY DISTRESS 07/26/2019 ORENDER DO, MYRNA S Ot S82.202D UNSP FX SHAFT OF LEFT TIBIA, SUBS FOR CL 07/26/2019 ORENDER DO, MYRNA S Ot S82.402D UNSP FX SHAFT OF LEFT FIBULA, SUBS FOR C 07/26/2019 ORENDER DO, MYRNA S Ot Z92.21 PERSONAL HISTORY OF ANTINEOPLASTIC CHEMO 07/29/2019 SOFYA, FAVIAN FRAME STRIPPER Ot C34.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 07/29/2019 SOFYA, FAVIAN FRAME STRIPPER Ot C79.9 SECONDARY MALIGNANT NEOPLASM OF UNSPECIF 07/29/2019 SOFYA, FAVIAN FRAME STRIPPER Ot E78.00 PURE HYPERCHOLESTEROLEMIA, UNSPECIFIED 07/29/2019 SOFYA, FAVIAN FRAME STRIPPER Ot G40.909 EPILEPSY, UNSP, NOT INTRACTABLE, WITHOUT 07/29/2019 SOFYA, FAVIAN FRAME STRIPPER Ot G62.9 POLYNEUROPATHY, UNSPECIFIED 07/29/2019 SOFYA FAVIAN FRAME STRIPPER Ot I10 ESSENTIAL (PRIMARY) HYPERTENSION 07/29/2019 SOFYA, FAVIAN FRAME STRIPPER Ot J44.9 CHRONIC OBSTRUCTIVE PULMONARY DISEASE, U 07/29/2019 SOFYA FAVIAN FRAME STRIPPER Ot M19.012 PRIMARY OSTEOARTHRITIS, LEFT SHOULDER 07/29/2019 SOFYA, FAVIAN FRAME STRIPPER Ot M25.512 PAIN IN LEFT SHOULDER 07/29/2019 SOFYAFAVIAN FRAME STRIPPER Ot M75.102 UNSP ROTATR-CUFF TEAR/RUPTR OF LEFT SHOU 07/29/2019 SOFYA, FAVIAN FRAME STRIPPER Ot W19.XXXA UNSPECIFIED FALL, INITIAL ENCOUNTER 07/29/2019 SOFYA FAVIAN FRAME STRIPPER Ot 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 07/29/2019 SOFYA, FAVIAN FRAME STRIPPER Ot Z82.49 FAMILY HX OF ISCHEM HEART DIS AND OTH DI 07/29/2019 SOFYAFAVIAN FRAME STRIPPER Ot Z87.891 PERSONAL HISTORY OF NICOTINE DEPENDENCE 07/29/2019 SOFYAFAVIAN FRAME STRIPPER Ot Z88.6 ALLERGY STATUS TO ANALGESIC AGENT STATUS 07/29/2019 SOFYA FAVIAN FRAME STRIPPER Ot Z99.81 DEPENDENCE ON SUPPLEMENTAL OXYGEN 07/29/2019 SIVA RESENDIZ FRAME STRIPPER Ot G25.5 OTHER CHOREA 07/29/2019 SIVA RESENDIZ FRAME STRIPPER Ot 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 MAXILLARY SINUSITIS 07/29/2019 SIVA RESENDIZ FRAME STRIPPER Ot R 51 HEADACHE 07/29/2019 SIVA RESENDIZ FRAME STRIPPER Ot W19.XXXA UNSPECIFIED FALL, INITIAL ENCOUNTER 08/03/2019 NINA ANAYA COMMERCIAL HVAC SERVICE TECHNICIAN Ot C34.12 MALIGNANT NEOPLASM OF UPPER LOBE, LEFT B 08/03/2019 NINA ANAYA COMMERCIAL HVAC SERVICE TECHNICIAN Ot F17.201 NICOTINE DEPENDENCE, UNSPECIFIED, IN REM 08/03/2019 NINA ANAYA APRN Ot J18.9 PNEUMONIA, UNSPECIFIED ORGANISM 08/03/2019 NINA ANAYA APRN Ot J44.1 CHRONIC OBSTRUCTIVE PULMONARY DISEASE W 08/03/2019 NINA ANAYA COMMERCIAL HVAC SERVICE TECHNICIAN Ot J96.20 ACUTE AND CHR RESP FAILURE, UNSP W HYPOX Procedures Code Description [place] [address] OXIMETRY 08/19/2012 90059 OXIMETRY 12/10/2013 [id number] RE SPIRATORY VENTILATION, 24- 96 CONSECUTI 03/09/2017 [id number] EX CISION OF THORAX LYMPHATIC, PERC ENDO 05/21/2017 [id number] EX TRACTION OF L LOW LUNG LOBE, PERC ENDO 05/21/[id number] MCCOY OF RIGHT MIDDLE LUNG LOBE, ENDO 07/23/2018 [id number] EX TIRPATION OF MATTER FROM RIGHT MAIN BR 07/23/2018 [id number] EX TIRPATION OF MATTER FROM LEFT MAIN BRO 07/23/2018 [id number] EX TRACTION OF RIGHT MIDDLE LUNG LOBE, EN 07/23/2018 [id number] RE PAIR SCALP SKIN, EXTERNAL APPROACH 02/18/2019 [id number] SISTANCE WITH RESPIRATORY VENTILATION, 04/04/2019 Results Test [...] PLUS NORMAL MAGED NRG Bacterial sputum culture [id number] [facility] Bacterial susceptibility panel - 7 05:12 Gentamicin [...] plasma alkaline phosphatase imck surement (enzymatic activity/volume) 137 U/L 40-136 Serum [...] culture - 05/20/17 16:35 Bacterial blood culture [facility] Complete blood count (CBC) with automate [...] in bronchial specimen by aerob e culture [id number] NRG FTX;REPORTABLE SENSITIVITY REPORTED AT 1642, 2 18 NRG Mycobacterium species detection by organ [...] - 08/05/17 10:51 Bacterial blood culture NG [facility] Sputum Gram stain - 08/05/17 11:30 Sputum Gram stain rods NR Bacterial sputum culture - 08/05/17 11:3 0 FREE TEXT EXTERNAL SENSITIVITY REPORTED AT 1555, NR QUANTITY OF GROWTH Abundant Growth NR FREE TEXT ENTRY 2 PLUS NORMAL MAGED [facility] Bacterial sputum culture [id number] [facility] Bacterial susceptibility panel - 8 11:30 Gentamicin [...] anisocytosis detection by light microscopy S LIGHT [facility] Comprehensive metabolic panel - 09/24/17 03:35 Serum [...] plasma alkaline phosphatase imck surement (enzymatic activity/volume) 97 U/L 40-136 Serum [...] CALCIUM CORRECTED 9.2 mg/dL 8.5-10.1 Magnesium - 12/25/18 18:50 Magnesium 2.0 mg/dL 1.8-2.4 Serum or [...] or plasma ethanol measurement (mas s/volume) - 12/25/18 18:50 Serum or plasma ethanol measurement (mass/volume) [...] TYPES PRESENT NRG QUANTITY OF GROWTH Isolated [facility] Bacterial blood culture [id number] NR Influenza virus A and B antigen [...] culture - 05/15/18 17:02 Bacterial blood culture [facility] Complete blood count (CBC) with automate [...] culture - 06/10/18 03:42 Bacterial blood culture [facility] Influenza virus A and B antigen detectio n - 06/10/18 03:45 FLU RESULT NEGATIVE FOR INFLUENZA A AND B ANTIGENS BY IA [facility] Bacterial blood culture - 06/10/18 04:46 Bacterial blood culture [facility] Complete urinalysis with reflex to cultu [...] INFLUENZA A AND B ANTIGENS BY IA [facility] Comprehensive metabolic panel - 12/01/18 02:25 Serum [...] INFLUENZA A AND B ANTIGENS BY IA [facility] Complete blood count (CBC) with automate d [...] - 06/21/19 05:53 Bacterial blood culture NG [facility] Influenza virus A and B antigen detectio n - 06/21/19 06:00 FLU RESULT NEGATIVE FOR INFLUENZA A AND B ANTIGENS BY IA [facility] Bacterial blood culture - 06/21/19 06:14 Bacterial blood culture NG [facility] Blood lactic acid measurement (moles/vol ume) - 06/21/19 10:35 Blood lactic acid measurement (moles/volume) 0.96 mmol/L 0.50-2.00 Gram stain microscopy - 06/21/19 19:42 Gram stain microscopy Rare Gram positive bacilli NR Bacteria identification in wound by cult ure - 06/21/19 19:42 Bacteria identification in wound by culture [id number] NRG QUANTITY OF GROWTH . NRG [...] NRG Blood hypochromia detection by light microscopy [facility] Comprehensive metabolic panel - 06/22/19 03:02 Serum [...] Blood erythrocyte morphology finding identification NORMAL NRG Bacterial blood culture - 07/23/19 00:11 Bacterial blood culture NG NRG Arterial blood [...] G Measurement of body temperature 38.2 NRG Bacterial blood culture - 07/23/19 00:49 Bacterial blood culture NG NR[facility] Complete urinalysis with reflex to cultu re - 07/23/19 09:15 Urine color determination YELLOW NRG Urine clarity determination CLEAR NR G Urine pH measurement by test strip 7.0 5-9 Specific gravity of urine by test [...] CULTURE PENDING NRG Bacterial urine culture - 07/23/19 09:15 Bacterial urine culture NG [facility] Complete blood count (CBC) with automate d white blood cell (WBC) differential - 07/24/19 03:45 Blood leukocytes automated count (number/volume) 6.7 10*3/uL [...] 10.0- 14.5 Automated blood platelet count (count/volume) 288 10*3/uL 130-400 Automated blood platelet mean volume [...] 0.0 10*3/uL 0.0-0.1 Comprehensive metabolic panel - 07/24/19 03:45 Serum or plasma sodium measurement (moles/volume) 135 mmol/L 135-145 Serum or plasma potassium measurement (moles/volume) 4.6 mmol/L 3.6-5.0 Serum or plasma chloride measurement (moles/volume) 96 mmol/L 98-107 Carbon dioxide 29 mmol/L 21-32 Serum or plasma anion gap determination (moles/volume) 10 mmol/L 5-14 Serum or plasma urea nitrogen measurement (mass/volume ) 8 mg/dL 7-18 Serum or plasma creatinine measurement (mass/volume) 0.60 mg/dL 0.60-1.30 Serum or plasma urea nitrogen/creatinine [...] measurement (mass/volume) 3.6 g/dL 3.2-4.5 CALCIUM CORRECTED 9.5 mg/dL 8.5-10.1 Vancomycin trough - 07/24/19 18:25 Vancomycin trough 12.2 ug/mL 10.0-20.0 Automated blood complete blood count (he mogram) panel - 07/25/19 05:50 Blood leukocytes automated count (number/volume) 6.2 10*3/uL 4.3-11.0 Blood erythrocytes automated count (number/volume) 3.75 10*6/uL 4.35-5.85 Venous blood hemoglobin measurement (mass/volume) [...] 10.0- 14.5 Automated blood platelet count (count/volume) 289 10*3/uL 130-400 Automated blood platelet mean volume measurement 8.6 [foz_us] 7.4-10.4 Whole blood basic metabolic panel - 06/30 09/17 05:50 Serum or plasma sodium measurement (moles/volume) 132 mmol/L 135-145 Serum or plasma potassium measurement (moles/volume) 4.4 mmol/L 3.6-5.0 Serum or plasma chloride measurement (moles/volume) 93 mmol/L 98-107 Carbon dioxide 31 mmol/L 21-32 [...] plasma calcium measurement (mass/volume) 8.8 mg/dL 8.5-10.1 Encounters ACCT No. Visit Date/Time Discharge Status Pt. Type Provider Facility Loc./Unit Complaint [id number] 12/10/2013 15:08:00 12/10/2013 23:59: 59 CLS Outpatient DIPESH MIKE APRN [id number] 08/19/2012 13:16:00 Document Registration [id number] 07/23/2019 01:13:00 14:11:00 DIS Outpatient MYRNA MERCADO DO [facility] 4TH BILAT LOWER LOB E PNA [id number] 07/15/2019 09:13:00 23:59:59 CLS Outpatient STEPHEN PRICE V [facility] ONC [id number] 06/28/2019 11:30:00 23:59:59 CLS Preadmit ADENIKE RIOS, SHARON Quiñones [facility] WOUNDCARE [id number] 06/21/2019 09:11:00 11:50:00 DIS Outpatient MARCO RIOS, BALBIR Pineda [facility] 4TH COPD, SACRAL PRESSURE ULCER [id number] 06/04/2019 10:35:00 00:01:00 DIS Outpatient STEPHEN PRICE V [facility] ONC [id number] 06/08/2019 19:30:00 23:59:59 CLS Inpatient BROOKELENAMANDEEP SCHMIDT DO A [facility] 4TH L TIB/FIB FRACT URE [id number] 06/05/2019 02:11:00 14:00:00 DIS Inpatient MYRNA MERCADO DO [facility] 4TH COPD EXACERBATI ON [id number] 05/28/2019 11:16:00 23:59:59 CLS Outpatient SIVA RESENDIZ FRAME STRIPPER [facility] RAD HEADACHE,FALLS [id number] 05/25/2019 15:37:00 23:59:59 CLS Outpatient SIVA RESENDIZ FRAME STRIPPER [facility] RAD [id number] 05/17/2019 20:00:00 15:30:00 DIS Inpatient AMANDEEP GENAO DO [facility] 4TH COPD W EXACERBA TION [id number] 04/04/2019 07:34:00 10:15:00 DIS Inpatient AMANDEEP GENAO DO [facility] 4TH RLL PNEUMONIA, RESP DISTRESS [id number] 03/19/2019 13:03:00 23:59:59 CLS Preadmit NINA ANAYA APRN [facility] RAD CHRONIC BRONCHITIS,COPD,PNEUMONIA,LUNG MASS,ASTHMA [id number] 03/15/2019 11:52:00 23:59:59 CLS Outpatient NIAN ANAYA APRN [facility] RAD CHRONIC BRONCHITIS,PNEUMONIA,LUNG MASS,ASTHMA [id number] 02/18/2019 14:30:00 16:28:00 DIS Inpatient AMADNEEP GENAO DO [facility] 4TH PNEUMONIA;WEAKN ESS [id number] 02/11/2019 13:03:00 00:01:00 DIS Outpatient STEPHEN PRICE V [facility] ONC [id number] 02/15/2019 07:55:00 23:59:59 CLS Outpatient CHADWICK DO AMANDEEP Miriam [facility] RAD FALL,NECK PAIN [id number] 02/03/2019 16:14:00 23:59:59 CLS Outpatient JOSEAMANDEEP SCHMIDT DO [facility] RAD FALL [id number] 01/18/2019 13:49:00 15:24:00 DIS Outpatient FAVIAN COWART a [facility] ER SOA [id number] 01/11/2019 12:07:00 23:59:59 CLS Outpatient SIVA RESENDIZ [facility] CARD NON SMALL CELL LUNG CA [id number] 01/06/2019 13:33:00 23:59:59 CLS Outpatient AMANDEEP GENAO DO [facility] RAD NASREEN SCHMID [id number] 12/01/2018 02:02:00 05:05:00 DIS Emergency MARY RIOS, STEFAN Zuniga [facility] ER SOB [id number] 11/25/2018 15:53:00 18:11:00 DIS Emergency FAVIAN COWART [facility] ER CONGESTION, COUGH [id number] 11/17/2018 15:42:00 23:59:59 CLS Outpatient AMANDEEP GENAO DO [facility] LAB SEIZURE [id number] 10/22/2018 13:30:00 00:01:00 DIS Outpatient STEPHEN PRICE [facility] ONC [id number] 10/05/2018 03:11:00 05:43:00 DIS Emergency MARY RIOS, SETFAN Zuniga [facility] ER SOB [id number] 09/14/2018 08:31:00 23:59:59 CLS Outpatient NINA ANAYA APRN [facility] RAD LUNG MASS,PNEUM ONIA [id number] 09/04/2018 18:22:00 12:14:00 DIS Inpatient AMANDEEP GENAO DO [facility] 4TH COPD EXACERBATI ON,AMS [id number] 09/04/2018 07:22:00 09:42:00 DIS Emergency MARY RIOS, STEFAN Zuniga [facility] ER FALL [id number] 08/12/2018 17:27:00 19:01:00 DIS Emergency NESTOR AVILEZ [facility] ER PAIN BEHIND LEFT EAR, T ROUBLE WALKING [id number] 07/20/2018 13:16:00 00:01:00 DIS Outpatient STEPHEN PRICE [facility] ONC [id number] 07/22/2018 00:00:00 13:50:00 DIS Inpatient AMANDEEP GENAO DO [facility] 4TH PNEUMONIA;LUNG CANCER ON CHEMO;COPD/ [id number] 07/14/2018 10:42:00 23:59:59 CLS Outpatient STEPHEN PRICE [facility] CARD NON SMALL CELL LUNG CA [id number] 07/02/2018 14:31:00 23:59:59 CLS Outpatient JUNIOR DO RANI Roa [facility] RAD NON SMALL CELL LUNG CAN CER [id number] 06/24/2018 20:23:00 14:26:00 DIS Inpatient AMANDEEP GENAO DO [facility] 4TH RLL PNA [id number] 06/22/2018 14:51:00 23:59:59 CLS Outpatient SIVA RESENDIZP [facility] RAD [id number] 06/10/2018 04:35:00 15:30:00 DIS Inpatient AMANDEEP GENAO DO [facility] 4TH RLL PNEUMONIA C OPD EXACERBATION [id number] 05/15/2018 13:27:00 14:15:00 DIS Inpatient JAMIR ELLISON DO, V [facility] 4TH NEUTROPENIA,PNEUMONIA,H YPONATREMIA [id number] 05/14/2018 14:53:00 23:59:59 CLS Outpatient AMANDEEP GENAO DO [facility] RAD COUGH [id number] 05/12/2018 15:17:00 23:59:59 CLS Outpatient AMANDEEP GENAO DO [facility] RAD FELL AND HURT R IGHT SHOULDER [id number] 05/05/2018 11:59:00 23:59:59 CLS Outpatient SIVA RESENDIZP [facility] CARD NON SMALL CELL LUNG CA [id number] 04/21/2018 16:40:00 019 16:35:00 DIS Inpatient BROOKELENAMANDEEP SCHMIDT DO [facility] 4TH COPD,EPILEPSY,L EFT LOWER LOBE PNEUM;LUNG CA [id number] 03/30/2018 13:59:00 019 00:01:00 DIS Outpatient STEPHEN PRICE V [facility] ONC [id number] 03/24/2018 22:15:00 10:42:00 DIS Inpatient BROOKELENAMANDEEP SCHMIDT DO [facility] 4TH SEIZURE DISORDER,GENERALIZED WEAKNESS,META LUNG CA [id number] 03/16/2018 20:46:00 11:22:00 DIS Inpatient AMANDEEP GENAO DO [facility] 4TH ORTHOSTATIC HYPOTENSION,HYPONATREMIA [id number] 03/09/2018 13:48:00 14:30:00 DIS Inpatient AMANDEEP GENAO DO [facility] 4TH WEAKNESS, C2 FR ACTURE [id number] 02/10/2018 12:15:00 23:59:59 CLS Outpatient SIVA RESENDIZ [facility] CARD NON SMALL CELL LUNG CA [id number] 01/26/2018 15:30:00 13:15:00 DIS Inpatient AMANDEEP GENAO DO [facility] 4TH PNENOMONIA,LUNG CANCER [id number] 01/19/2018 16:00:00 23:59:59 CLS Outpatient AMANDEEP GENAO DO [facility] RAD TRAUMA TO NECK [id number] 01/13/2018 12:15:00 23:59:59 CLS Preadmit NINA ANAYA APRN [facility] RAD PNEUMONIA,NON-S MALL CELL LUNG CANCER [id number] 01/08/2018 14:06:00 23:59:59 CLS Outpatient SIVA RESENDIZ [facility] RAD [id number] 12/26/2017 13:12:00 018 14:23:00 DIS Outpatient STEPHEN PRICE [facility] ONC [id number] 12/24/2017 08:01:00 018 09:47:00 DIS Outpatient [facility] [id number] 12/22/2017 05:39:00 018 14:34:00 DIS Outpatient KURT MOHR MD [facility] PREOP CATARACT [id number] 12/12/2017 10:20:00 018 12:10:00 DIS Outpatient KURT MOHR MD [facility] CATARACT LEFT EYE [id number] 12/10/2017 06:22:00 018 14:11:00 DIS Outpatient KURT MOHR MD [facility] PREOP CATARACT LEFT EYE [id number] 12/04/2017 09:11:00 018 13:15:00 DIS Inpatient AMANDEEP GENAO DO [facility] 4TH COPD ACUTE EXAC ERBATION [id number] 11/14/2017 20:45:00 018 14:28:00 DIS Inpatient JAMIR ELLISON DO, V [facility] 4TH RLL PNEUMONIA,ORTHOSTAT IC HYPOTENSION,HX LUNG CA [id number] 10/30/2017 11:00:00 018 23:59:59 CLS Outpatient SIVA RESENDIZ [facility] CARD NON-SMALL CELL LUNG CANCER,SECONDARY CANCER OF [place] [id number] 10/07/2017 12:07:00 018 23:59:59 CLS Outpatient AMANDEEP GENAO DO [facility] LAB TOENAIL FUNGUS [id number] 09/18/2017 13:18:00 018 00:01:00 DIS Outpatient STEPHEN PRICE [facility] ONC [id number] 09/24/2017 04:46:00 018 15:52:00 DIS Inpatient CHADWICK DO AMANDEEP Miriam [facility] 4TH PNEUMONIA,METAS TATIC LUNG CANCER ON CHEMO,COPD [id number] 09/04/2017 11:24:00 018 23:59:59 CLS Outpatient MARTÍN SIVA Jennifer CAR [facility] LAB NON SMALL CELL LUNG CANCER [id number] 08/28/2017 17:10:00 018 23:59:59 CLS Outpatient NINA ANAYA APRN [facility] RAD LEG PAIN,LEG SW ELLING,LUNG MASS [id number] 08/05/2017 15:56:00 018 12:55:00 DIS Inpatient AMANDEEP GENAO DO [facility] 4TH COPD ACUTE EXACERBATION;RESP DISTRESS [id number] 08/05/2017 10:11:00 018 15:17:00 DIS Emergency VANESSA GUTHRIE MD [facility] ER SOB [id number] 07/29/2017 14:37:00 018 13:31:00 DIS Inpatient BROOKENUNUAMANDEEP SCHMIDT DO [facility] 4TH PNEUMONIA,COPD EXACERBATION [id number] 07/28/2017 12:13:00 018 23:59:59 CLS Outpatient AMANDEEP GENAO DO [facility] RAD COUGH R05,CONGE STION R09.81 [id number] 07/24/2017 10:27:00 018 14:30:00 DIS Outpatient CÉSAR NEGRETE DO [facility] SDC LUNG CANCER [id number] 07/23/2017 14:46:00 018 15:11:00 DIS Outpatient CÉSAR NEGRETE DO [facility] PREOP LUNG CA [id number] 07/09/2017 08:57:00 018 14:25:00 DIS Outpatient STEPHEN PRICE V [facility] RAD R93.7 ABNORMAL MRI SCAN , BONE [id number] 07/03/2017 08:40:00 018 23:59:59 CLS Outpatient STEPHEN PRICE V [facility] RAD R91.1 LUNG NODULE [id number] 07/02/2017 08:26:00 018 23:59:59 CLS Outpatient RANI PACHECO DO [facility] RAD ABN PET OF LUNG CA [id number] 06/17/2017 09:08:00 018 23:59:59 CLS Outpatient RANI PACHECO DO [facility] RAD LUNG NODULE,LUNG MASS,T OBACCO USER [id number] 06/03/2017 09:00:00 018 23:59:59 CLS Preadmit AMANDEEP GENAO DO [facility] RAD SPICULATED NODU LE IN LT UPPER LOBE OF LUNG [id number] 05/20/2017 16:28:00 018 14:48:00 DIS Inpatient AMANDEEP GENAO DO [facility] 4TH PNEUMONIA BILAT LL,MASS L UPPER LOBE,FATIGUE,PAST- [id number] 04/30/2017 19:42:00 018 23:27:00 DIS Emergency NOREEN CHÁVEZ COMMERCIAL HVAC SERVICE TECHNICIAN [facility] ER NOSE BLEED [id number] 04/30/2017 15:18:00 018 18:22:00 DIS Emergency NOREEN CHÁVEZ COMMERCIAL HVAC SERVICE TECHNICIAN [facility] ER NOSE BLEED [id number] 04/14/2017 14:15:00 018 23:59:59 CLS Preadmit NINA ANAYA APRN [facility] PULM ASTHMA [id number] 04/06/2017 11:15:00 018 14:00:00 DIS Inpatient AMANDEEP GENAO DO [facility] 4TH BILAT LOWER LOB E PNA, COPD [id number] 04/03/2017 10:09:00 23:59:59 CLS Preadmit NINA ANAYA COMMERCIAL HVAC SERVICE TECHNICIAN [facility] RT ASTHMA [id number] 04/03/2017 10:07:00 018 23:59:59 CLS Preadmit HÉCTOR NINARUSTY Bustos APRN [facility] RAD TOBACCO USER [id number] 03/30/2017 07:03:00 018 12:25:00 DIS Inpatient AMANDEEP GENAO DO [facility] 4TH RESP, DISTRESS, COPD EXACERBATION [id number] 03/09/2017 18:31:00 017 14:50:00 DIS Inpatient AMANDEEP GENAO DO Via [address] SEVERE SEPSIS,R EPIRATORY FAILURE,PNEUMONIA [id number] 03/05/2017 10:54:00 017 13:24:00 DIS Emergency [place], [place] Harris [facility] ER SKIN ABRASIONS ON NOSE AND LEFT HAND--FALL [id number] 02/28/2017 13:26:00 017 14:45:00 DIS Inpatient AMANDEEP GENAO DO [facility] 4TH PNEUMONIA,COPD EXACERBATION [id number] 02/04/2017 15:03:00 017 23:59:59 CLS Outpatient AMANDEEP GENAO DO [facility] LAB SOB COPD WEIGHT LOSS [id number] 01/14/2017 12:26:00 017 23:59:59 CLS Outpatient AMANDEEP GENAO DO [facility] RAD FELL-HIT HEAD [id number] 12/19/2016 12:24:00 017 23:59:59 CLS Outpatient AMANDEEP GENAO DO [facility] RAD COPD,COUGH [id number] 09/10/2016 13:39:00 23:59:59 CLS Outpatient AMANDEEP GENAO DO [facility] LAB SEIZURE [id number] 08/20/2016 10:59:00 23:59:59 CLS Outpatient AMANDEEP GENAO DO [facility] LAB SEIZURE COPD [id number] 02/28/2016 13:20:00 23:59:59 CLS Outpatient AMANDEEP GENAO DO [facility] RAD WEIGHT LOSS [id number] 02/21/2016 09:42:00 23:59:59 CLS Outpatient AMANDEEP GENAO DO [facility] 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,UNIX ENGINEER D [id number] 02/19/2016 16:00:00 23:59:59 CLS Outpatient AMANDEEP GENAO DO [facility] RAD RECENT 20LB [place] GHT LOSS [id number] 12/13/2015 16:15:00 23:59:59 CLS Outpatient AMANDEEP GENAO DO [facility] LAB SEIZURE [id number] 11/20/2015 07:17:00 09:32:00 DIS Emergency MARY RIOS, STEFAN Zuniga [facility] ER SEIZURE [id number] 10/24/2015 13:47:00 15:18:00 DIS Emergency NOREEN CHÁVEZ APRN [facility] ER LEFT EAR LAC [id number] 08/10/2015 16:11:00 12:30:00 DIS Inpatient AMANDEEP GENAO DO [facility] 4TH COPD EXACERBATI ON [id number] 07/09/2015 13:22:00 23:59:59 CLS Outpatient AMANDEEP GENAO DO [facility] LAB HYPERLIPIDEMIA [id number] 06/13/2015 13:09:00 11:40:00 DIS Inpatient AMANDEEP GENAO DO [facility] 4TH COPD EXACERBATI ON HYPONATREMIA [id number] 05/30/2015 12:53:00 23:59:59 CLS Outpatient AMANDEEP GENAO DO [facility] LAB SEIZURES,HYPERLIPIDEMIA,PAIN IN L FOOT,HX OF FX [id number] 03/11/2015 16:23:00 11:36:00 DIS Inpatient AMANDEEP GENAO DO [facility] 4TH PNEUMONIA,HYPOXIA,SEIZURE,COPD EXAC [id number] 11/08/2014 12:06:00 23:59:59 CLS Outpatient AMANDEEP GENAO DO [facility] LAB [id number] 08/26/2014 11:54:00 13:42:00 DIS Emergency KARIS BONILLA [facility] ER SOA [id number] 04/26/2014 13:15:00 23:59:59 CLS Outpatient AMANDEEP GENAO DO [facility] LAB SEIZURES,COPD [id number] 03/25/2014 12:57:00 23:59:59 CLS Outpatient AMANDEEP GENAO DO [facility] RAD NUMBNESS TINGLI NG OF R ARM [id number] 11/16/2013 12:35:00 014 23:59:59 CLS Outpatient AMANDEEP GENAO DO [facility] LAB LAMICTAL LEVEL [id number] 11/08/2013 11:10:00 014 11:27:00 DIS Emergency VANESSA GUTHRIE MD Via [facility] ER STAPLE REMOVAL [id number] 11/02/2013 01:47:00 014 03:43:00 DIS Emergency VANESSA GUTHRIE MD [facility] ER SEIZURE [id number] 11/01/2013 16:10:00 014 23:59:59 CLS Outpatient AMANDEEP GENAO DO [facility] RAD LT FOOT SWELLIN G AND HAS BUMP ON 1ST METATARSAL [id number] 10/23/2013 12:37:00 014 23:59:59 CLS Outpatient YELITZA ANTHONY MD [facility] LAB SEIZURES-PRIMARY [id number] 09/28/2013 12:18:00 014 23:59:59 CLS Outpatient AMANDEEP GENAO DO [place] [facility] LAB LEFT LEG SWELL [id number] 09/17/2013 01:40:00 014 03:55:00 DIS Emergency CELESTE BILLY DO [facility] ER SEIZURE-FELL [id number] 09/03/2013 12:42:00 014 23:59:59 CLS Outpatient BROOKENUNUAMANDEEP SCHMIDT DO [place] [facility] LAB SEIZURE,COPD [id number] 07/20/2013 09:49:00 23:59:59 CLS Outpatient AMANDEEP GENAO DO [place] [facility] RAD WEIGHT LOSS, AB D PAIN [id number] 07/12/2013 16:11:00 014 23:59:59 CLS Outpatient AMANDEEP GENAO DO [place] [facility] LAB LOST 10 LBS, AB D PAIN [id number] 05/25/2013 16:19:00 014 23:59:59 CLS Outpatient CHADWICK DO AMANDEEP [place] [facility] RAD COUGH,BRONCHITI S [id number] 02/16/2013 13:23:00 013 16:25:00 DIS Emergency NOREEN CHÁVEZ APRN [facility] ER FELL HURT ANKLE,KNEE, H IP [id number] 12/23/2012 12:55:00 013 14:12:00 DIS Emergency NOREEN CHÁVEZ [employer] HV[employer] SERVICE TECHNICIAN [facility] ER FALL/LEFT RIB PAIN [id number] 10/29/2012 11:00:00 013 23:59:59 CLS Outpatient AMANDEEP GENAO DO [place] [facility] RAD COPD [id number] 10/22/2012 16:07:00 013 23:59:59 CLS Outpatient AMANDEEP GENAO DO [place] [facility] RAD BRONCHITIS,COPD [id number] 12/09/2011 15:35:00 Document Registration [id number] 10/15/2011 11:10:00 Document Registration [id number] 07/23/2011 23:37:00 Document Registration [id number] 05/18/2011 14:31:00 Document Registration [id number] 02/15/2011 13:07:00 Document Registration [id number] 01/28/2011 12:37:00 Document Registration [id number] 06/23/2010 19:15:00 Document Registration [id number] 05/08/2010 14:15:00 Document Registration [id number] 02/14/2010 11:40:00 Document Registration [id number] 12/02/2009 12:42:00 Document Registration
[2019-08-08 13:56] LABS: INR 0.9 (0.8-1.4); PROTHROMBIN TIME PATIENT 12.7 SEC (12.2-14.7)
--- NOTE | 2019-08-08 14:00 | ED General ---
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 PT STATES HE FINISHED ANTIBIOTICS AND THOSE SYMPTOMS ARE BETTER AND HE IS BACK TO NORMAL BASELINE HAS NOT FOLLOWED UP WITH ANYONE SINCE HE WAS DISMISSED FOR THAT PROBLEM SEES DR. PACHECO FOR PULMONOLOGY ADDITIONALLY, PT HAS METASTATIC LUNG CANCER TO BONE, AND IS FOLLOWED BY DR. PRICE--HAS BEEN ON CHEMO PT CONTINUES TO SMOKE PT HAS BEEN NON-AMBULATORY SINCE 06/08/19 AFTER SUSTAINING A LEFT TIB-FIB FRACTURE PT IS WEARING A SPLINT AT THIS TIME PT IS FOLLOWED BY DR RUBY, AND SAW HIM LAST WEEK--PT STATES THAT HE NEEDS SURGERY, BECAUSE IT IS NOT HEALING, BUT NEEDS TO BE CLEARED FOR SURGERY BY 2 OTHER DOCTORS, WHICH HE HAS NOT YET MADE APPOINTMENTS FOR PT STATES HE IS NOT ON BLOOD THINNERS OR ASPIRIN--STATES HE CAN'T TAKE ASPIRIN BECAUSE IT INTERFERES WITH SOME OF HIS MEDICATIONS PT ALSO C/O PAIN TO BUTTOCKS FROM ONGOING BEDSORES--STATES IS NOT ANY DIFFERENT THAN NORMAL PT STATES 2 DAYS AGO, HIS GIRLFRIEND WAS ROLLING HIM ON THE BED AND HIS NECK "SNAPPED" STATES THAT HE HAS BROKEN HIS NECK IN THE PAST--2018, BUT NEVER HAD SURGERY. HAS NON-HEALED ODONTOID FRACTURE PCP: DR. GENAO ONCOLOGIST: DR. PRICE STRANDING MACHINE OPERATOR: DR. PACHECO ORTHOPEDIC SURGEON: DR. RUBY Allergies and Home Medications Allergies Coded Allergies: aspirin (Unverified Allergy, Mild, DOES NOT WORK WELL W/ OTHER MEDS, 07/23/19) ibuprofen (Unverified Allergy, Mild, 07/23/19) Home Medications Acetaminophen 500 Mg Tablet, 1,000 MG PO Q8H PRN for PAIN-MILD (1-4), (Reported) Albuterol Sulfate 2.5 Mg/3 Ml Vial.neb, 2.5 MG NEB Q4H PRN for SHORTNESS OF BREATH, (Reported) Albuterol Sulfate 1 Puff Puff, 2 PUFF IH Q6H PRN for SHORTNESS OF BREATH, (Reported) Amlodipine Besylate 5 Mg Tablet, 5 MG PO 0800, (Reported) Atorvastatin Calcium 20 Mg Tablet, 10 MG PO 0300, (Reported) TAKES OF A 20MG ONCE DAILY Carbamazepine 200 Mg Tablet, 200 MG PO 0300,0800,2300, (Reported) Carbamazepine 200 Mg Tablet, 400 MG PO 1500, (Reported) TAKES 2 (200 MG) TABLETS Cefdinir 300 Mg Capsule, 300 MG PO BID Prescribed by: MYRNA MERCADO on 07/26/19 124 Doxycycline Hyclate 100 Mg Capsule, 100 MG PO BID Prescribed by: MYRNA MERCADO on 07/26/19 1241 Fluticasone/Salmeterol 12 Gm Hfa.aer.ad, 1 PUFF IH BID, (Reported) Gabapentin 300 Mg Capsule, 300 MG PO 2300, (Reported) Gabapentin 600 Mg Tablet, 600 MG PO 0800,1500, (Reported) Hydrocodone/Acetaminophen 1 Each Tablet, 1 TAB PO Q6H PRN for PAIN-MODERATE (5- 7), (Reported) Lamotrigine 25 Mg Tablet, 25 MG PO 0300, 1500, (Reported) TAKES 25MG @ 0300 25MG + 100MG @1500 Lamotrigine 100 Mg Tablet, 100 MG PO 1500,2300, (Reported) LAST FILLED 03-25-2019 #60/30 DAY SUPPLY PT TAKES 100MG AT 1500 & 2300 Omeprazole 20 Mg Capsule.dr, 20 MG PO DAILY PRN for HEARTBURN, (Reported) Phenytoin Sodium Extended 100 Mg Capsule, 200 MG PO 0800,1500, (Reported) TAKES 2 (100 MG) CAPSULES Phenytoin Sodium Extended 100 Mg Capsule, 100 MG PO 2300, (Reported) Prednisone 20 Mg Tab, 20 MG PO BID Prescribed by: MYRNA MERCADO on 07/26/19 1241 Ropinirole HCl 0.5 Mg Tablet, 0.5 MG PO 1500, (Reported) Tiotropium [place] 1 Inh Aerp, 1 CAP IH 1500, (Reported) Zinc Oxide 28 Gm Oint, 0 GM TOP NEEDED PRN for RASH Prescribed by: BALBIR LARA on 06/25/19 0825 Patient Home Medication List Home Medication List Reviewed: Yes Review of Systems Review of Systems Constitutional: No chills, No diaphoresis, No dizziness, No fever; malaise, weakness EENTM: no symptoms reported Respiratory: see HPI (NO CHANGE FROM NORMALBASELINE) Cardiovascular: no symptoms reported; No chest pain, No edema, No palpitations, No syncope Gastrointestinal: no symptoms reported; No abdominal pain, No nausea, No vomiting Genitourinary: no symptoms reported Musculoskeletal: see HPI Skin: see HPI Psychiatric/Neurological: See HPI; Denies Headache Hematologic/Lymphatic: No Symptoms Reported Past Vntzmfg-Rtssyf-Pkpdyi Hx Past Med/Social Hx: Reviewed and Corrections made Patient Social History Alcohol Use: Past History (HX OF ABUSE, CLAIMS NO RECENT USE) Recreational Drug Use: Yes (HX OF RX DRUG ABUSE, CLAIMS NO USE FOR 15 YEARS) Drug of Choice: HX OF RX DRUG ABUSE, CLAIMS NONE 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 Smoking Status: Current Everyday Smoker (> 1 PPD) Type Used: Cigars, Cigarettes 2nd Hand Smoke Exposure: No Recent Hopitalizations: No Immunizations Up To Date Tetanus Booster (TDap): Less than 5yrs PED Vaccines UTD: Yes Date of Influenza Vaccine: Apr 21, 2018 Seasonal Allergies Seasonal Allergies: Yes Past Medical History Surgeries: Yes Eye Surgery, Gallbladder Respiratory: Yes (O2 AT 4L/NC CONTINUOUSLY) Asthma, Pneumonia, Chronic Bronchitis, Sleep Apnea, COPD Currently Using CPAP: No Currently Using BIPAP: No Cardiac: Yes Heart Murmur, High Cholesterol, Hypertension, Valvular Heart Disease 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) Neuropathy, Seizure Disorder, Vertigo Reproductive Disorders: No Sexually Transmitted Disease: No HIV/AIDS: No Genitourinary: No Gastrointestinal: Yes (CHRONIC NAUSEA/VOMITING) Musculoskeletal: Yes (HX C-SPINE FX/NON-UNION OF ODONTOID; FALLS;POST POLIO-L SIDE WEAKNESS/CONTR) Arthritis, Fractures, Contracture Endocrine: No HEENT: No Loss of Vision: Denies Hearing Impairment: Denies Cancer: Yes Bone, Lung Did You Recieve Any Treatments: Yes What Type of Treatment Did You: Chemotherapy Psychosocial: No Integumentary: No Blood Disorders: No Adverse Reaction/Blood Tranf: No Family Medical History Diabetes mellitus 19 MOTHER Hypercholesterolemia 19 FATHER Hypertension 19 FATHER Heart Disease Physical Exam Vital Signs Vital Signs - First Documented Capillary Refill : Height, Weight, BMI Height: 6'0" Weight: 174lbs. 3.0oz. [id number]; 25.00 BMI Method:Stated General Appearance: No Apparent Distress, Chronically ill, Other (MILDLY LETHARGIC, FILTHY, VERY UNKEMPT, REEKS OF CIGARETTES) HEENT: PERRL/EOMI Neck: Limited Range of Motion, Tender Lateral, Tender Midline, Other (HOLDS HEAD SIDEBENT TO LEFT) Respiratory: No Accessory Muscle Use, No Respiratory Distress, Other (SCATTERED RALES/RHONCHI--CLEARED WITH COUGHING) Cardiovascular: Regular Rate, Rhythm, No Edema, No Murmur Gastrointestinal: Non Tender, Soft Back: No CVA Tenderness, No Vertebral Tenderness, Other (ENTIRE LEFT BUTTOCK AND MEDIAL ASPECT OF RIGHT BUTTOCK WITH EXTENSIVE ERYTHEMA AND INDURATION AND SKIN THICKENING/LICHENIFICATION, NO OBVIOUS OPEN WOUNDS. AREA NEAR PERINEUM AND SCROTUM APPEARS TO HAVE SOME CANDIDAL -TYPE APPEARANCE WELL. ) Extremity: No Pedal Edema (NO EDEMA ON RIGHT); No Calf Tenderness; Other (LEFT LOWER LEG IN SPLINT--EXTERNALLY ROTATED AT LEAST 90 DEGREES. CAP REFILL AND SENSATION TO TOES IS NORMAL. SPLINT IS VERY DIRTY ) Neurologic/Psychiatric: Alert, Oriented x3, Other (HAS CHRONIC LEFT SIDE WEAKNESS AND CONTRACTURES. FLAT AFFECT. ) Skin: Normal Color, Warm/Dry Procedures/Interventions Date of ETT Placement: Mar 09, 2017 Time of ETT Placement: 1811 Suture Size: 5-0 Progress/Results/Core Measures Suspected Sepsis SIRS Temperature: Pulse: Respiratory Rate: Laboratory Tests 08/08/19 13:36: White Blood Count 6.3 Blood Pressure / Mean: Laboratory Tests 08/08/19 13:36: Creatinine 0.64, INR Comment 0.9, Platelet Count 308, Total Bilirubin 0.2 Results/Orders Lab Results My Orders Medications Given in ED Vital Signs/I&O Capillary Refill : Progress Note : Progress Note UNEVENTFUL ER STAY PT VERY DEMANDING THROUGHOUT ER STAY--LITERALLY SUPERVISOR LAUNDRY LIGHT BEFORE NURSE OR STAFF MEMBER COULD MAKE IT BACK TO DESK, CONSTANTLY THROUGHOUT ER STAY ECG Initial ECG Impression Date: August 08, 2019 Initial ECG Impression Time: 13:40 Initial ECG Rate: 65 Initial ECG Rhythm: Normal Sinus (OLD INFERIOR AND LATERAL CHANGES) Initial ECG Comparisson: Unchanged Diagnostic Imaging Comments CXR--PER RADIOLOGIST REPORT AT 1445 IMPRESSION: 1. Bilateral perihilar and basilar infiltrates present. Perhaps slightly more prominent and consolidated right infrahilar region and slightly improved at the left lung base. CT HEAD AND CERVICAL SPINE--PER RADIOLOGIST REPORT AT 1510 IMPRESSION: 1: Stable CT scan of the brain with no interval acute intracranial process. There is no intracranial hemorrhage or skull fracture. 2: There is no new cervical spine fracture. 3: There is interval displacement of the chronic type II odontoid process fracture towards the left. There is no bony bridging. There is also left lateral subluxation of the C1 vertebra in relation to C2 at medial and complete lateral dislocation of the C1 right lateral mass in relation to the C2 lateral mass. The change in appearance of the C1-C2 regions regarding subluxation/dislocation is of unknown age. Patient does demonstrate leftward tilting of the head which is also seen on the comparison x-ray of the cervical spine dated 07/24/2019. 4: Stable prominent odontoid pannus with at least mild central canal narrowing. 5: There is multilevel cervical spine degenerative disease, as described above. Reviewed: Reviewed by Me Departure Communication (Admissions) 1509--SPOKE WITH DR. LARA, SUPERVISOR LAUNDRY FOR DR. GENAO. SHE ADVISES TO CONTACT DR. PRESCOTT, AND CALL HER BACK 151--SPOKE WITH DR. PRESCOTT, ORTHOPEDIC/SPINE SURGEON, HE WILL REVIEW FILMS AND CALL ME BACK. 160--SPOKE WITH DR. PRESCOTT, HE HAS REVIEWED FILMS. HE WILL DISCUSS OPTIONS WITH DR. LARA AND ONE OF THEM WILL CALL BACK. OPTIONS BEING: TRANSFER TO [facility] FOR ATTEMPT AT SURGICAL FIXATION VS GOING HOME WITH PERMANENT RIGID COLLAR AND HOSPICE. 161--DR. LARA CALLED BACK. I WILL DISCUSS WHAT PT WOULD LIKE TO DO AND CONTACT HER AND DR. PRESCOTT --DR. LARA HAS ATTEMPTED TO ARRANGE HOSPICE FOR PT ON PREVIOUS ADMIT, AND PT AND GIRLFRIEND HAVE REPEATEDLY REFUSED. LENGTHY DISCUSSION WITH PT AND HIS GIRLFRIEND ON THE PHONE. PT HAS OPTED TO BE TRANSFERRED TO [facility] FOR SURGERY. PT WAS ADVISED OF RISKS OF SURGERY, INCLUDING NON-UNION OF THE AFFECTED BONE, PERMANENT PARALYSIS, AND . THEY AGAIN HAVE REFUSED HOSPICE TODAY. 1644--CALLED DR. PRESCOTT BACK AND INFORMED HIM THAT PT WISHED TO PURSUE SURGICAL TREATMENT, HE WILL ARRANGE FOR DIRECT ADMIT TO [facility]. DR. LARA WAS INFORMED OF THE PLAN WELL. Impression Primary Impression: SUBLUXATION OF CHRONIC NONHEALING ODONTOID FRACTURE Additional Impressions: NEW RIGHT ARM PARESTHESIAS AND SUBJECTIVE WEAKNESS NEW LEFT FINGER PARESTHESIAS CHRONIC LEFT ARM WEAKNESS D/T POST POLIO SYNDROME PERSISITENT BIBASILAR INFILTRATES COPD --O2 AND STEROID DEPENDENT METASTATIC LUNG CANCER NONHEALING LEFT TIB-FIB FRACTURE Disposition: 02 XFER SHT-TRM HOSP Condition: Stable Transfer Transfer Reason: Exceeds level of care (ORTHOPEDIC / NEUROSURGICAL SPINE SURGERY) Transfer Facility: [facility] Method of Transfer: EMS Departure-Patient Inst. Referrals: AMANDEEP GENAO DO (PCP/Family) Primary Care Physician CHUNG DOTY DO August 08, 2019 14:00
[2019-08-08 14:07] LABS: BASOPHILS % (AUTO) 0 % (0-10); EOSINOPHILS % (AUTO) 0 % (0-10); HEMATOCRIT 36 % (40-54); HEMOGLOBIN 11.8 G/DL (13.3-17.7); LYMPHOCYTES # (AUTO) 0.5 X 10^3 (1.0-4.0); LYMPHOCYTES % (AUTO) 9 % (12-44); MEAN CORPUSCULAR HEMOGLOBIN 28 PG (25-34); MEAN CORPUSCULAR HGB CONC 33 G/DL (32-36); MEAN CORPUSCULAR VOLUME 86 FL (80-99); MEAN PLATELET VOLUME 8.8 FL (7.4-10.4); MONOCYTES % (AUTO) 16 % (0-12); NEUTROPHILS # (AUTO) 4.7 X 10^3 (1.8-7.8); NEUTROPHILS % (AUTO) 75 % (42-75); PLATELET COUNT 308 10^3/uL (130-400); RED CELL DISTRIBUTION WIDTH 15.4 % (10.0-14.5); WHITE BLOOD COUNT 6.3 10^3/uL (4.3-11.0)
[2019-08-08 14:11] LABS: CHLORIDE 92 MMOL/L (98-107)
[2019-08-08 14:12] LABS: POTASSIUM 4.2 MMOL/L (3.6-5.0); SODIUM 132 MMOL/L (135-145)
[2019-08-08 14:14] LABS: GLUCOSE 99 MG/DL (70-105)
[2019-08-08 14:15] LABS: CARBON DIOXIDE 31 MMOL/L (21-32)
[2019-08-08 14:16] LABS: BILIRUBIN,TOTAL 0.2 MG/DL (0.1-1.0)
[2019-08-08 14:17] LABS: ALKALINE PHOSPHATASE 163 U/L (40-136); CREATININE SERUM 0.64 MG/DL (0.60-1.30); GFR ESTIMATED > 60
[2019-08-08 14:18] LABS: BUN/CREATININE RATIO 6
[2019-08-08 14:20] LABS: ALANINE AMINOTRANSFERASE 9 U/L (0-55)
[2019-08-08 14:21] LABS: CREATINE KINASE 35 U/L (30-200); MAGNESIUM 2.1 MG/DL (1.6-2.4)
[2019-08-08 14:27] LABS: CREATINE KINASE MB 1.6 NG/ML (<6.6)
--- NOTE | 2019-08-08 14:39 | Diagnostic Imaging Report ---
INDICATION: Right arm tingling and weakness, starting 2 days ago.. TECHNIQUE: Single view chest 2:26 PM. CORRELATION STUDY: 07/23/2019 FINDINGS: Right IJ Yxuplf-w-Vwiv catheter tip over the low SVC. Heart size and mediastinum appearing generally stable. Bilateral perihilar and basilar infiltrates are present. Perhaps slightly more consolidated in the right infrahilar region but may be minimally improved over the left lung base. Remaining lung lo otherwise with hyperinflation suggesting COPD. Advanced degenerative changes left shoulder. IMPRESSION: 1. Bilateral perihilar and basilar infiltrates present. Perhaps slightly more prominent and consolidated right infrahilar region and slightly improved at the left lung base. Dictated by: Dictated on workstation # [id number]
[2019-08-08 14:42] LABS: BILIRUBIN,URINE NEGATIVE (NEGATIVE); CLARITY,URINE CLEAR; COLOR,URINE YELLOW; GLUCOSE, URINE (UA) NEGATIVE (NEGATIVE); KETONES,URINE NEGATIVE (NEGATIVE); LEUKOCYTE ESTERASE ,URINE NEGATIVE (NEGATIVE); NITRITE,URINE NEGATIVE (NEGATIVE); PH,URINE 7.5 (5-9); PROTEIN,URINE NEGATIVE (NEGATIVE)
[2019-08-08 14:48] LABS: BACTERIA,URINE NEGATIVE /HPF
[2019-08-08 14:56] LABS: AMPHETAMINE SCREEN, URINE NEGATIVE (NEGATIVE); BARBITURATE SCREEN URINE POSITIVE (NEGATIVE); BENZODIAZEPINES SCREEN URINE NEGATIVE (NEGATIVE); CANNABINOID SCREEN, URINE NEGATIVE (NEGATIVE); COCAINE SCREEN URINE NEGATIVE (NEGATIVE); METHADONE STAT NEGATIVE (NEGATIVE); METHAMPHETAMINE SCREEN URINE S NEGATIVE (NEGATIVE); OPIATE SCREEN URINE NEGATIVE (NEGATIVE); OXYCODONE STAT NEGATIVE (NEGATIVE); PROPOXYPHENE STAT NEGATIVE (NEGATIVE); TRICYCLIC ANTIDEPRESSANTS SCRE NEGATIVE (NEGATIVE)
--- NOTE | 2019-08-08 15:00 | NUR ---
pt took home medication at this time.
--- NOTE | 2019-08-08 15:07 | Diagnostic Imaging Report ---
Clinical indication: Patient complains of bilateral arm tingling and weakness x 2 days. Patient rolled over in bed and heard a pop in neck. Patient has history of nonunion odontoid process fracture in 2018. Exam: Axial Head CT without IV contrast. Axial CT scan of the cervical spine with sagittal and coronal reformations. Auto Exposure Controls were utilized during the CT exam to meet ALARA standards for radiation dose reduction. Comparison: Head CT without contrast dated 05/20/2019. CT scan of the cervical spine dated 02/18/2019. X-ray of the cervical spine dated 07/24/2019. Findings: CT head: There is motion artifact obscuring some portions of the exam. There is no evidence of acute intracranial hemorrhage, brain herniation or midline shift. There is no acute cerebral infarct. Stable significant volume loss involving the right cerebral hemisphere with enlargement of the right lateral ventricle. There is no hydrocephalus. There is interval development of a small chronic cerebral infarct involving the inferior left cerebellum. There is subtle focal areas of low-attenuation white matter changes involving both hemispheres likely representing chronic small vessel ischemic disease. Basal cisterns are unremarkable. Impression: Extracranial soft tissue, skull and orbits are stable and unremarkable. There is a small mucus retention cyst in the left maxillary sinus. Previously seen left maxillary sinus air-fluid level has resolved. Mastoid air cells are clear. CT cervical spine: Again seen is a chronic odontoid process fracture. There is interval left lateral subluxation of the C1 vertebra in relation to C2 with medial dislocation of the C1 right lateral mass medially from the C2 lateral mass. There is joint space narrowing of the C1-C2 lateral mass articulation region. There has been interval progression of the chronic appearing erosive changes involving the left C1-C2 lateral mass regions. The odontoid process fracture component is also appropriately located between the C1-C2 lateral masses, but the base of it is now malaligned with apparent C2 vertebra. Sagittal shows the C2 odontoid process fracture to be in good position. There is no bony bridging. There is a large periodontoid pannus again seen with at least mild central canal narrowing. There is no other acute cervical spine fracture. There is stable grade 1 anterolisthesis of C3 on C4 and C4 on C5 and grade 1 retrolisthesis of C7 on T1. There a stable multilevel cervical spine degenerative disease which is most pronounced at the C5-C6 level. There is moderate to severe right C5-C6 and C6-C7 neural foramen narrowing due to uncinate spurs. Visualized neck soft tissue structures are unremarkable. Visualized upper lung lo show emphysematous disease. IMPRESSION: 1: Stable CT scan of the brain with no interval acute intracranial process. There is no intracranial hemorrhage or skull fracture. 2: There is no new cervical spine fracture. 3: There is interval displacement of the chronic type II odontoid process fracture towards the left. There is no bony bridging. There is also left lateral subluxation of the C1 vertebra in relation to C2 at medial and complete lateral dislocation of the C1 right lateral mass in relation to the C2 lateral mass. The change in appearance of the C1-C2 regions regarding subluxation/dislocation is of unknown age. Patient does demonstrate leftward tilting of the head which is also seen on the comparison x-ray of the cervical spine dated 07/24/2019. 4: Stable prominent odontoid pannus with at least mild central canal narrowing. 5: There is multilevel cervical spine degenerative disease, as described above. Dictated by: Dictated on workstation # [id number]
[2019-08-08] MEDS ORDERED: fentaNYL INJECTION 100 MCG/2 ML AMP IVP ONE (15:30)
[2019-08-08] MEDS ORDERED: CEFEPIME INJECTION 2,000 MG in WATER (STERILE) FOR INJECTION 20 ML IV ONE (17:00)
--- NOTE | 2019-08-08 17:30 | NUR ---
called and updated pts significant other of pending transfer and room number for natalee.
[2019-08-08 17:52] VITALS: BP 132/89
== END 2019-08-08 17:57 | disposition short-term general hospital (02) ==
LOC: EDUNIT# 13:25 → ER 13:26
DX: S13.120A Subluxation of C1/C2 cervical vertebrae, initial encounter (principal); S12.110D Anterior displaced Type II dens fracture, subsequent encounter for fracture with routine healing; S82.202D Unspecified fracture of shaft of left tibia, subsequent encounter for closed fracture with routine healing; S82.402D Unspecified fracture of shaft of left fibula, subsequent encounter for closed fracture with routine healing; C34.90 Malignant neoplasm of unspecified part of unspecified bronchus or lung; C79.51 Secondary malignant neoplasm of bone; R20.2 Paresthesia of skin; G14 Postpolio syndrome; R91.8 Other nonspecific abnormal finding of lung field; J44.9 Chronic obstructive pulmonary disease, unspecified; I10 Essential (primary) hypertension; E78.00 Pure hypercholesterolemia, unspecified; G40.909 Epilepsy, unspecified, not intractable, without status epilepticus; G62.9 Polyneuropathy, unspecified; F17.290 Nicotine dependence, other tobacco product, uncomplicated; F17.210 Nicotine dependence, cigarettes, uncomplicated; Z99.81 Dependence on supplemental oxygen; Z79.52 Long term (current) use of systemic steroids; Z88.6 Allergy status to analgesic agent; Z79.51 Long term (current) use of inhaled steroids; Z82.49 Family history of ischemic heart disease and other diseases of the circulatory system; X58.XXXD Exposure to other specified factors, subsequent encounter
CPT/HCPCS: 36415; 70450; 71045; 72125; 80053; 80164; 80185; 80306; 81000; 82550; 82553; 83735; 84484; 85025; 85610; 85730; 93005; 93041

== ENCOUNTER 2019-08-29 18:09 | Observation (INO) | payer MEDICARE, MEDICAID ==
[~2019-08-29] VITALS: Ht 182 cm; Wt 78.8 kg
[~2019-08-29 18:09] MED LIST changes: +ZINC57OI6 TP
--- NOTE | 2019-08-29 18:24 | ED Respiratory ---
General Chief Complaint: Respiratory Problems Stated Complaint: SOA Source: patient, EMS Exam Limitations: no limitations History of Present Illness Date Seen by Provider: August 29, 2019 Time Seen by Provider: 18:12 Initial Comments Patient presents to ER by EMS from home with chief complaint of shortness of breath 2 days. Nonproductive cough. No chest pain. He is 2 weeks out from surgery on his neck. He says been using oxycodone and weaning himself off for the last several days. Today he has not had any opiates but did take a gram of Tylenol this morning and that has been working well enough. He had a bowel movement today. EMS reports he had clear lung sounds on the pick him up with no fever and on his baseline 4 L by nasal cannula he was running 98-99%. On arrival he had a bout of nausea and dry heaves. He says this is a new symptom. Patient also remarked today he felt drowsy, unstable on his feet like he's been drinking. He does not drink alcohol recently. In the past when this has happened it has been related to his chronic hyponatremia worsening. History of lung cancer, seizure disorder on Dilantin, COPD on DuoNeb which she says does help his shortness of air. Allergies and Home Medications Allergies Coded Allergies: aspirin (Unverified Allergy, Mild, DOES NOT WORK WELL W/ OTHER MEDS, 07/23/19) ibuprofen (Unverified Allergy, Mild, 07/23/19) Home Medications Acetaminophen 500 Mg Tablet, 1,000 MG PO Q6H PRN for PAIN-MILD (1-4), (Reported) Albuterol Sulfate 2.5 Mg/3 Ml Vial.neb, 2.5 MG NEB Q4H PRN for SHORTNESS OF BREATH, (Reported) Albuterol Sulfate 1 Puff Puff, 2 PUFF IH Q6H PRN for SHORTNESS OF BREATH, (Reported) Amlodipine Besylate 5 Mg Tablet, 5 MG PO 0800, (Reported) Atorvastatin Calcium 20 Mg Tablet, 10 MG PO 0300, (Reported) TAKES OF A 20MG ONCE DAILY Carbamazepine 200 Mg Tablet, 200 MG PO 0300,0800,2300, (Reported) Carbamazepine 200 Mg Tablet, 400 MG PO 1500, (Reported) TAKES 2 (200 MG) TABLETS Fluticasone/Salmeterol 12 Gm Hfa.aer.ad, 1 PUFF IH BID, (Reported) Gabapentin 300 Mg Capsule, 300 MG PO 2300, (Reported) Gabapentin 600 Mg Tablet, 600 MG PO 0800,1500, (Reported) Hydrocodone/Acetaminophen 1 Each Tablet, 1 TAB PO Q6H PRN for PAIN-MODERATE (5- 7), (Reported) Lamotrigine 25 Mg Tablet, 25 MG PO 0300, 1500, (Reported) TAKES 25MG @ 0300 25MG + 100MG @1500 Lamotrigine 100 Mg Tablet, 100 MG PO 1500,2300, (Reported) LAST FILLED 03-25-2019 #60/30 DAY SUPPLY PT TAKES 100MG AT 1500 & 2300 Omeprazole 20 Mg Capsule.dr, 20 MG PO DAILY, (Reported) Phenytoin Sodium Extended 100 Mg Capsule, 200 MG PO 0800,1500, (Reported) TAKES 2 (100 MG) CAPSULES Phenytoin Sodium Extended 100 Mg Capsule, 100 MG PO 2300, (Reported) Ropinirole HCl 0.5 Mg Tablet, 0.5 MG PO 1500, (Reported) Tiotropium [place] 1 Inh Aerp, 1 CAP IH 1500, (Reported) Zinc Oxide 57 Gm Oint...g., 1 APPLIC TP EVERY 3 HOURS PRN for RASH, (Reported) Patient Home Medication List Home Medication List Reviewed: Yes Review of Systems Review of Systems Constitutional: No chills, No diaphoresis EENTM: No no symptoms reported, No hearing loss Respiratory: cough; No phlegm; short of breath; No wheezing Cardiovascular: no symptoms reported; No chest pain, No edema, No syncope Gastrointestinal: No abdominal pain, No nausea, No vomiting Genitourinary: No discharge, No dysuria Musculoskeletal: see HPI; No back pain, No joint pain; neck pain (chronic, post surgical, tolerable) Psychiatric/Neurological: Denies Anxiety, Denies Depressed Past Npatnqn-Daifzp-Dmuybe Hx Patient Social History Alcohol Use: Denies Use Recreational Drug Use: No Drug of Choice: HX OF RX DRUG ABUSE, CLAIMS NONE 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 Smoking Status: Current Everyday Smoker Type Used: Cigars, Cigarettes 2nd Hand Smoke Exposure: No Recent Hopitalizations: No Immunizations Up To Date Tetanus Booster (TDap): Less than 5yrs PED Vaccines UTD: Yes Date of Influenza Vaccine: Apr 21, 2018 Seasonal Allergies Seasonal Allergies: Yes Past Medical History Surgeries: Yes Eye Surgery, Gallbladder Respiratory: Yes (O2 AT 4L/NC CONTINUOUSLY) Asthma, Pneumonia, Chronic Bronchitis, Sleep Apnea, COPD Currently Using CPAP: No Currently Using BIPAP: No Cardiac: Yes Heart Murmur, High Cholesterol, Hypertension, Valvular Heart Disease 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) Neuropathy, Seizure Disorder, Vertigo Reproductive Disorders: No Sexually Transmitted Disease: No HIV/AIDS: No Genitourinary: No Gastrointestinal: Yes (CHRONIC NAUSEA/VOMITING) Musculoskeletal: Yes (HX C-SPINE FX/NON-UNION OF ODONTOID; FALLS;POST POLIO-L SIDE WEAKNESS/CONTR) Arthritis, Fractures, Contracture Endocrine: No HEENT: No Loss of Vision: Denies Hearing Impairment: Denies Cancer: Yes Bone, Lung Did You Recieve Any Treatments: Yes What Type of Treatment Did You: Chemotherapy Psychosocial: No Integumentary: No Blood Disorders: No Adverse Reaction/Blood Tranf: No Family Medical History Diabetes mellitus 19 MOTHER Hypercholesterolemia 19 FATHER Hypertension 19 FATHER Heart Disease Physical Exam Vital Signs - First Documented 08/29/19 08/29/19 18:09 18:50 Temp 36.8 Pulse 69 Resp 20 B/P (MAP) 181/115 (137) Pulse Ox 97 O2 Delivery Room Air O2 Flow Rate 4.00 FiO2 36 Capillary Refill : Height: 6'0" Weight: 174lbs. 3.0oz. 79.994810jp; 22.00 BMI Method:Stated General Appearance: WD/WN, mild distress Eyes: Bilateral Eye Normal Inspection, Bilateral Eye PERRL, Bilateral Eye EOMI HEENT: PERRL/EOMI, normal ENT inspection, TMs normal, pharynx normal Neck: tender midline, other (soft pillow collar in place) Respiratory: no respiratory distress, no accessory muscle use, decreased breath sounds, rhonchi (right base but otherwise clear), other (chronic respiratory distress with his baseline oxygen at 4 L keeping him in the upper 90s. No inc reased work of breathing.) Cardiovascular: normal peripheral pulses, regular rate, rhythm Gastrointestinal: normal bowel sounds, non tender, soft Neurologic/Psychiatric: alert, normal mood/affect, oriented x 3 Skin: normal color, warm/dry Procedures/Interventions Date of ETT Placement: Mar 09, 2017 Time of ETT Placement: 1811 Suture Size: 5-0 Progress/Results/Core Measures Suspected Sepsis SIRS Temperature: Pulse: Respiratory Rate: Laboratory Tests 08/29/19 18:13: White Blood Count 9.6 Blood Pressure / Mean: Laboratory Tests 08/29/19 18:13: Creatinine 0.67, Platelet Count 393, Total Bilirubin 0.3 Results/Orders Lab Results Laboratory Tests Test 08/29/19 18:13 08/29/19 18:50 Range/Units White Blood Count 9.6 4.3-11.0 10^3/uL Red Blood Count 4.15 L 4.35-5.85 10^6/uL Hemoglobin 11.6 L 13.3-17.7 G/DL Hematocrit 35 L 40-54 % Mean Corpuscular Volume 85 80-99 FL Mean Corpuscular Hemoglobin 28 25-34 PG Mean Corpuscular Hemoglobin Concent 33 32-36 G/DL Red Cell Distribution Width 15.5 H 10.0-14.5 % Platelet Count 393 130-400 10^3/uL Mean Platelet Volume 8.4 7.4-10.4 FL Neutrophils (%) (Auto) 78 H 42-75 % Lymphocytes (%) (Auto) 9 L 12-44 % Monocytes (%) (Auto) 14 H 0-12 % Eosinophils (%) (Auto) 0 0-10 % Basophils (%) (Auto) 0 0-10 % Neutrophils # (Auto) 7.4 1.8-7.8 X 10^3 Lymphocytes # (Auto) 0.8 L 1.0-4.0 X 10^3 Monocytes # (Auto) 1.3 H 0.0-1.0 X 10^3 Eosinophils # (Auto) 0.0 0.0-0.3 10^3/uL Basophils # (Auto) 0.0 0.0-0.1 10^3/uL Sodium Level 124 *L 135-145 MMOL/L Potassium Level 4.4 3.6-5.0 MMOL/L Chloride Level 87 L 98-107 MMOL/L Carbon Dioxide Level 28 21-32 MMOL/L Anion Gap 9 5-14 MMOL/L Blood Urea Nitrogen 7 7-18 MG/DL Creatinine 0.67 0.60-1.30 MG/DL Estimat Glomerular Filtration Rate > 60 BUN/Creatinine Ratio 10 Glucose Level 111 H 70-105 MG/DL Calcium Level 8.8 8.5-10.1 MG/DL Corrected Calcium 8.8 8.5-10.1 MG/DL Total Bilirubin 0.3 0.1-1.0 MG/DL Aspartate Amino Transf (AST/SGOT) 13 5-34 U/L Alanine Aminotransferase (ALT/SGPT) 9 0-55 U/L Alkaline Phosphatase 186 H 40-136 U/L Troponin I < 0.028 <0.028 NG/ML C-Reactive Protein High Sensitivity 3.05 H 0.00-0.50 MG/DL B-Type Natriuretic Peptide 168.6 H <100.0 PG/ML Total Protein 7.2 6.4-8.2 GM/DL Albumin 4.0 3.2-4.5 GM/DL Blood Gas Puncture Site RIGHT RADIAL Blood Gas Patient Temperature 36.8 Arterial Blood pH 7.38 7.37-7.43 Arterial Blood Partial Pressure CO2 54 H 35-45 MMHG Arterial Blood Partial Pressure O2 133 H 79-93 MMHG Arterial Blood HCO3 31 H 23-27 MMOL/L Arterial Blood Total CO2 32.7 H 21.0-31.0 MMOL/L Arterial Blood Oxygen Saturation 99 94-100 % Arterial Blood Base Excess 6.0 H -2.5-2.5 MMOL/L Johan Test POS Blood Gas Ventilator Setting NO Blood Gas Inspired Oxygen 4L My Orders Orders - SUKH,KALEN J Albuterol/Ipra Inhalation Soln (Duoneb I (08/29/19 18:30) Chest 1 View, Ap/Pa Only (08/29/19 18:18) Svn Small Volume Nebulizer (08/29/19 18:18) Continuous Ekg Monitoring (08/29/19 18:18) Ekg Tracing (08/29/19 18:18) Cbc With Automated Diff (08/29/19 18:18) Troponin I (08/29/19 18:18) BNP (08/29/19 18:18) Hs C Reactive Protein (08/29/19 18:18) Comprehensive Metabolic Panel (08/29/19 18:18) Arterial Blood Gas (08/29/19 18:18) Ondansetron Injection (Zofran Injectio (08/29/19 18:30) Dilantin (Phenytoin) (08/29/19 19:11) Ed Iv/Invasive Line Start (08/29/19 19:12) Ns Iv 1000 Ml (Sodium Chloride 0.9%) (08/29/19 19:12) Ct Angio Chest W (08/29/19 19:12) Iohexol Injection (Omnipaque 350 Mg/Ml 1 (08/29/19 19:30) Received Contrast (Hold Metformin- Contr (08/29/19 19:30) Ns (Ivpb) (Sodium Chloride 0.9% Ivpb Bag (08/29/19 19:30) Medications Given in ED Current Medications Medications Dose Ordered Sig/Porfirio Route Start Time Stop Time Status Last Admin Dose Admin Albuterol/ Ipratropium 3 ml ONCE ONCE INH 08/29/19 18:30 08/29/19 18:31 DC 08/29/19 18:30 3 ML Iohexol 100 ml ONCE ONCE IV 08/29/19 19:30 08/29/19 19:31 DC 08/29/19 20:10 71 ML Ondansetron HCl 4 mg ONCE ONCE IVP 08/29/19 18:30 08/29/19 18:31 DC 08/29/19 18:35 4 MG Sodium Chloride 100 ml ONCE ONCE IV 08/29/19 19:30 08/29/19 19:31 DC 08/29/19 20:10 80 ML Vital Signs/I&O 08/29/19 08/29/19 18:09 18:50 Temp 36.8 Pulse 69 Resp 20 B/P (MAP) 181/115 (137) Pulse Ox 97 98 O2 Delivery Room Air O2 Flow Rate 4.00 FiO2 36 Capillary Refill : Progress Note #1: Time: 19:05 Progress Note Sensation of dyspnea without clinical findings of increased work of breathing, increased oxygen demand. We'll get an ABG and chest x-ray. Chest x-rays are unrevealing except for atelectasis. He has been weaning off opiates and that could be causing some oxygen however but atypical angina is another concern. We did not give him aspirin because of his stated allergy. We did obtain an EKG troponin and BNP. We'll also consider pulmonary embolism although is not having any chest pain or tachycardia. Because of his recent surgery however he has been fairly immobilized and is not on blood thinners so his risk would be moderately high. We'll get a CT angiogram if his kidneys will tolerate it. Progress Note #2: Time: 20:[address] shows mostly chronic changes. No evidence of pulmonary embolism. The patient is sleeping softly on his baseline of oxygen. Because of his increased d rowsiness/confusion and complaint of shortness of air which contributed this time to his hyponatremia we'll offer an observation stay on some IV fluids and encourage him to eat and drink. He has accepted this offer. Nursing staff spoke to the power of deputy register of deeds/girlfriend and updated her. ECG Initial ECG Impression Date: August 29, 2019 Initial ECG Impression Time: 18:20 Initial ECG Rate: 65 Initial ECG Rhythm: Normal Sinus Initial ECG Intervals: Normal Initial ECG Impression: Normal Comment Normal sinus rhythm without clinically relevant ST T wave depression or elevation Diagnostic Imaging Diagonstic Imaging: Xray Plain Films/CT/US/NM/MRI: chest (1v) Comments NAME: CR QUIJANO [facility] REC#: [id number] PT STATUS: REG ER : 1955 PHYSICIAN: KALEN LUZ MD ADMIT DATE: 08/29/19/ER Signed Date of Exam:08/29/19 CHEST 1 VIEW, AP/PA ONLY INDICATION: Shortness of breath. EXAMINATION: Portable chest at 6:43 p.m. FINDINGS: Right IJ Port-A-Cath tip projects over the SVC. There is severe degenerative change in both shoulders. There is right medial basilar atelectasis. Left lung is clear. There is no effusion or pneumothorax. IMPRESSION: Right basilar atelectasis. No acute abnormality is seen. Dictated by: Dictated on workstation # [id number] Dict: 08/29/19 1848 Trans: 08/29/191851 [facility] [id number] Interpreted by: VANESSA SERNA MD Electronically signed by: VANESSA SERNA MD 08/29/191851 Reviewed: Reviewed by Me Diagonstic Imaging: CT (angio) Plain Films/CT/US/NM/MRI: chest Comments NAME: CR QUIJANO [facility] REC#: [id number] PT STATUS: REG ER : 1955 PHYSICIAN: KALEN LUZ MD ADMIT DATE: 08/29/19/ER Signed Date of Exam:05/31/20 CT ANGIO CHEST W PROCEDURE: CT angiography of the chest with contrast. TECHNIQUE: Multiple contiguous axial images were obtained through the chest after uneventful bolus administration of intravenous contrast. 3D reconstructed CTA MIP acquisitions were also performed. Auto Exposure Controls were utilized during the CT exam to meet ALARA standards for radiation dose reduction. INDICATION: Cough x 2 days. FINDINGS: There are emphysematous changes in the lungs. There are small patchy areas of consolidation at both medial lung bases with some bronchiectasis. There is no pulmonary embolism. There is no evidence of right ventricular strain. There are no effusions or pneumothoraces. Aorta is unremarkable. IMPRESSION: COPD. Basilar bronchiectasis with some peribronchiolar consolidation at the medial lung bases, bilaterally. No evidence for pulmonary embolism or other acute abnormality. Dictated by: Dictated on workstation # [id number] Dict: 08/29/192011 Trans: 08/29/192024 [facility] [id number] Interpreted by: VANESSA SERNA MD Electronically signed by: VANESSA SERNA MD 08/29/192024 Reviewed: Reviewed by Me Departure Impression Primary Impression: Hyponatremia Disposition: ADMITTED INPATIENT Condition: Stable Admissions Decision to Admit Reason: Admit from ER (General) Decision to Admit/Date: August 29, 2019 Time/Decision to Admit Time: 20:30 Departure-Patient Inst. Referrals: AMANDEEP GENAO DO (PCP/Family) Primary Care Physician KALEN LUZ August 29, 2019 18:24
[2019-08-29 18:27] LABS: BASOPHILS % (AUTO) 0 % (0-10); EOSINOPHILS % (AUTO) 0 % (0-10); HEMATOCRIT 35 % (40-54); HEMOGLOBIN 11.6 G/DL (13.3-17.7); LYMPHOCYTES # (AUTO) 0.8 X 10^3 (1.0-4.0); LYMPHOCYTES % (AUTO) 9 % (12-44); MEAN CORPUSCULAR HEMOGLOBIN 28 PG (25-34); MEAN CORPUSCULAR HGB CONC 33 G/DL (32-36); MEAN CORPUSCULAR VOLUME 85 FL (80-99); MEAN PLATELET VOLUME 8.4 FL (7.4-10.4); MONOCYTES # (AUTO) 1.3 X 10^3 (0.0-1.0); MONOCYTES % (AUTO) 14 % (0-12); NEUTROPHILS # (AUTO) 7.4 X 10^3 (1.8-7.8); NEUTROPHILS % (AUTO) 78 % (42-75); PLATELET COUNT 393 10^3/uL (130-400); RED CELL DISTRIBUTION WIDTH 15.5 % (10.0-14.5); WHITE BLOOD COUNT 9.6 10^3/uL (4.3-11.0)
[2019-08-29] MEDS ORDERED: ONDANSETRON 4 MG/2 ML (SDV) Z0FRAN IVP ONE (18:30)
[2019-08-29] MEDS ORDERED: RT-ALBUTEROL/IPRATROPIUM 3 ML (DUONEB) VIAL INH ONE (18:30)
--- NOTE | 2019-08-29 18:51 | Diagnostic Imaging Report ---
INDICATION: Shortness of breath. EXAMINATION: Portable chest at 6:43 p.m. FINDINGS: Right IJ Port-A-Cath tip projects over the SVC. There is severe degenerative change in both shoulders. There is right medial basilar atelectasis. Left lung is clear. There is no effusion or pneumothorax. IMPRESSION: Right basilar atelectasis. No acute abnormality is seen. Dictated by: Dictated on workstation # [id number]
[2019-08-29 18:59] LABS: ABG OXYGEN SATURATION 99 % (94-100); ABG PCO2 54 MMHG (35-45); ABG PH 7.38 (7.37-7.43); ABG PO2 133 MMHG (79-93); ABG TCO2 32.7 MMOL/L (21.0-31.0)
[2019-08-29 19:02] LABS: ALLENS TEST POS; INSPIRED O2 4L; PATIENT TEMP 36.8; VENTILATOR NO
[2019-08-29 19:03] LABS: CHLORIDE 87 MMOL/L (98-107); POTASSIUM 4.4 MMOL/L (3.6-5.0)
[2019-08-29 19:05] LABS: CALCIUM 8.8 MG/DL (8.5-10.1)
[2019-08-29 19:06] LABS: GLUCOSE 111 MG/DL (70-105); TOTAL PROTEIN 7.2 GM/DL (6.4-8.2)
[2019-08-29 19:07] LABS: CARBON DIOXIDE 28 MMOL/L (21-32)
[2019-08-29 19:08] LABS: BILIRUBIN,TOTAL 0.3 MG/DL (0.1-1.0)
[2019-08-29 19:09] LABS: ALKALINE PHOSPHATASE 186 U/L (40-136); CREATININE SERUM 0.67 MG/DL (0.60-1.30); GFR ESTIMATED > 60
[2019-08-29 19:11] LABS: BUN/CREATININE RATIO 10
[2019-08-29 19:12] LABS: ALANINE AMINOTRANSFERASE 9 U/L (0-55)
[2019-08-29] MEDS ORDERED: NS IV 1000 ML 1,000 ML IV SCH (19:12)
[2019-08-29 19:14] LABS: SODIUM 124 MMOL/L (135-145)
[2019-08-29] MEDS ORDERED: NS 100 ML (IVPB) BAG IV ONE (19:30)
[2019-08-29] MEDS ORDERED: IOHEXOL 350 MG/ML 100 ML (OMNIPAQUE 350) VIAL IV ONE (19:30)
[2019-08-29] MEDS ORDERED: HOLD METFORMIN - RECEIVED CONTRAST 20 ML VIAL IV SCH (19:30)
--- NOTE | 2019-08-29 20:22 | Diagnostic Imaging Report ---
PROCEDURE: CT angiography of the chest with contrast. TECHNIQUE: Multiple contiguous axial images were obtained through the chest after uneventful bolus administration of intravenous contrast. 3D reconstructed CTA MIP acquisitions were also performed. Auto Exposure Controls were utilized during the CT exam to meet ALARA standards for radiation dose reduction. INDICATION: Cough x 2 days. FINDINGS: There are emphysematous changes in the lungs. There are small patchy areas of consolidation at both medial lung bases with some bronchiectasis. There is no pulmonary embolism. There is no evidence of right ventricular strain. There are no effusions or pneumothoraces. Aorta is unremarkable. IMPRESSION: COPD. Basilar bronchiectasis with some peribronchiolar consolidation at the medial lung bases, bilaterally. No evidence for pulmonary embolism or other acute abnormality. Dictated by: Dictated on workstation # [id number]
[2019-08-29 21:13] LABS: ABG BASE EXCESS 6.5 MMOL/L (-2.5-2.5); ABG OXYGEN SATURATION 99 % (94-100); ABG PCO2 55 MMHG (35-45); ABG PH 7.38 (7.37-7.43); ABG PO2 119 MMHG (79-93); ABG TCO2 33.2 MMOL/L (21.0-31.0)
[2019-08-29 21:14] LABS: ALLENS TEST YES-POS; INSPIRED O2 NOT INDICATED; PATIENT TEMP 36.8; VENTILATOR NO
[2019-08-29 21:47] VITALS: BP 159/81
[2019-08-29] MEDS ORDERED: ACETAMINOPHEN 325 MG TABLET PO PRN (22:45)
[2019-08-29] MEDS ORDERED: oxyCODONE/APAP 5/325MG (PERCOCET 5) TABLET PO PRN (22:45)
[2019-08-29] MEDS ORDERED: ONDANSETRON 4 MG/2 ML (SDV) Z0FRAN IV PRN (22:45)
[2019-08-29] MEDS ORDERED: LORazepam 0.5 MG (ATIVAN) TABLET PO PRN (22:45)
[2019-08-29] MEDS ORDERED: GABAPENTIN 300 MG (NEURONTIN) CAP PO SCH (23:00)
[2019-08-29 23:20] VITALS: BP 113/70
[2019-08-29] MEDS: NS IV 1000 ML 1,000 ML IV SCH (23:42)
[2019-08-30 03:03] VITALS: BP 181/115
--- NOTE | 2019-08-30 03:18 | NUR ---
BASED ON MAT SCORE, PT SHOULD RECEIVE DUONEB Q6 AND PRN, ALSO ADD IS PER CXR STATING ATELECTASIS IS EVIDENT, OXYGEN AT 4 LPM AT HOME, CONT HOME CURRENT SETTINGS OF OXYGEN Addendum: 08/30/19 at 0318 by FAVIAN GATICA RT Amended: Links added.
[2019-08-30] MEDS ORDERED: RT-ALBUTEROL/IPRATROPIUM 3 ML (DUONEB) VIAL INH PRN (03:30)
[2019-08-30 04:30] VITALS: BP 132/73
[2019-08-30 05:22] LABS: BASOPHILS % (AUTO) 0 % (0-10); EOSINOPHILS % (AUTO) 0 % (0-10); HEMATOCRIT 33 % (40-54); HEMOGLOBIN 10.8 G/DL (13.3-17.7); LYMPHOCYTES # (AUTO) 0.6 X 10^3 (1.0-4.0); LYMPHOCYTES % (AUTO) 13 % (12-44); MEAN CORPUSCULAR HEMOGLOBIN 28 PG (25-34); MEAN CORPUSCULAR HGB CONC 33 G/DL (32-36); MEAN CORPUSCULAR VOLUME 86 FL (80-99); MEAN PLATELET VOLUME 8.6 FL (7.4-10.4); MONOCYTES # (AUTO) 0.7 X 10^3 (0.0-1.0); MONOCYTES % (AUTO) 15 % (0-12); NEUTROPHILS # (AUTO) 3.4 X 10^3 (1.8-7.8); NEUTROPHILS % (AUTO) 72 % (42-75); PLATELET COUNT 370 10^3/uL (130-400); RED CELL DISTRIBUTION WIDTH 15.4 % (10.0-14.5); WHITE BLOOD COUNT 4.8 10^3/uL (4.3-11.0)
[2019-08-30 05:44] LABS: ALBUMIN 3.6 GM/DL (3.2-4.5)
[2019-08-30 05:45] LABS: CHLORIDE 95 MMOL/L (98-107); POTASSIUM 4.3 MMOL/L (3.6-5.0); SODIUM 132 MMOL/L (135-145)
[2019-08-30 05:46] LABS: CALCIUM 9.2 MG/DL (8.5-10.1)
[2019-08-30 05:47] LABS: GLUCOSE 104 MG/DL (70-105); TOTAL PROTEIN 6.4 GM/DL (6.4-8.2)
[2019-08-30 05:48] LABS: CARBON DIOXIDE 28 MMOL/L (21-32)
[2019-08-30 05:49] LABS: BILIRUBIN,TOTAL 0.2 MG/DL (0.1-1.0)
[2019-08-30 05:50] LABS: ALKALINE PHOSPHATASE 163 U/L (40-136)
[2019-08-30 05:51] LABS: CREATININE SERUM 0.61 MG/DL (0.60-1.30); GFR ESTIMATED > 60
[2019-08-30 05:52] LABS: BUN/CREATININE RATIO 10
[2019-08-30 05:54] LABS: ALANINE AMINOTRANSFERASE 8 U/L (0-55)
[2019-08-30] MEDS: NS IV 1000 ML 1,000 ML IV SCH (06:44)
[2019-08-30] MEDS ORDERED: GABAPENTIN 600 MG (NEURONTIN) TAB PO SCH (08:00)
--- NOTE | 2019-08-30 08:19 | Diagnostic Imaging Report ---
INDICATION: Lung cancer. Compared 08/29/2019 FINDINGS: Infrahilar and right basilar opacity redemonstrated with partial atelectasis having decreased. No adverse interval development. Right IJ catheter at the lower SVC. No pneumothorax. IMPRESSION: Similar right infrahilar density and basilar partial atelectasis. Central line in good position. No pneumothorax or apparent change. Dictated by: Dictated on workstation # [id number]
[2019-08-30 08:44] VITALS: BP 160/84
[2019-08-30] MEDS ORDERED: RT-ALBUTEROL/IPRATROPIUM 3 ML (DUONEB) VIAL INH SCH (09:00)
[2019-08-30] MEDS ORDERED: PHENYTOIN 100 MG (DILANTIN) CAP PO ONE (09:45)
[2019-08-30] MEDS ORDERED: carBAMazepine 200 MG (TEGretol) TAB PO SCH (09:45)
--- NOTE | 2019-08-30 09:47 | Short Stay Summary-Hospitalist ---
History of Present Illness HPI/Chief Complaint Pt is 64yoCM known to me from previous admissions with COPD, lung cancer, seizure disorder who presented to the ER with complaints of SOB. He states he was worried he was developing pneumonia so wanted to be evaluated so he called EMS. On arrival his oxygen saturation was 99% on his baseline oxygen requirement. He did not have any increased work of breathing either. He denies fever, chills, or sick contacts. He is two weeks out from his recent neck surgery though. He was nauseated in the ER as well which he associates with his hyponatremia worsening. he was found to be hyponatremic at 125 and was admitted to observation and IVF. This morning he states he is feeling very well and would like to discharge. He has no shortness of breath and is still on his baseline oxygen. Source: patient Date Seen 08/30/19 Time Seen by a Provider: 09:45 Attending Physician Nicci Ndiaye MD PCP Micky Feng DO Referring Physician Date of Admission August 29, 2019 at 20:58 Home Medications & Allergies Home Medications Reviewed patient Home Medication Reconciliation performed by pharmacy medication reconciliations instrument room technician and/or nursing. Patients Allergies have been reviewed. Allergies Allergies Coded Allergies aspirin (Unverified Allergy, Mild, DOES NOT WORK WELL W/ OTHER MEDS, 07/23/19) ibuprofen (Unverified Allergy, Mild, 07/23/19) Past Plqbebj-Gnfund-Uswxlv Hx Past Med/Social Hx: Reviewed Nursing Past Med/Soc Hx Patient Social History Employed/Student: unemployed Alcohol Use: Denies Use Recreational Drug Use: No Drug of Choice: HX OF RX DRUG ABUSE, CLAIMS NONE 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 Smoking Status: Current Everyday Smoker Former Smoker, Quit: Jan 29, 2017 Type Used: Cigars, Cigarettes 2nd Hand Smoke Exposure: No Recent Foreign Travel: No Contact w/other who traveled: No Recent Hopitalizations: No Recent Infectious Disease Expo: No Immunizations Up To Date Tetanus Booster (TDap): Less than 5yrs Pediatric: Yes Date of Influenza Vaccine: Apr 21, 2018 Seasonal Allergies Seasonal Allergies: Yes Past Medical History Surgeries: Eye Surgery, Gallbladder Respiratory: COPD, Emphysema, Pneumonia Currently Using CPAP: No Currently Using BIPAP: No Cardiac: Heart Murmur, High Cholesterol, Hypertension, Valvular Heart Disease Neurological: Neuropathy, Seizure Disorder, Vertigo Reproductive: No Sexually Transmitted Disease: No HIV/AIDS: No Musculoskeletal: Arthritis, Fractures, Contracture Loss of Vision: Denies Hearing Impairment: Denies Cancer: Bone, Lung Did You Recieve Any Treatments: Yes What Type of Treatment Did You: Chemotherapy History of Blood Disorders: No Adverse Reaction to Blood [place]: No Family History Reviewed Nursing Family Hx Diabetes mellitus 19 MOTHER Hypercholesterolemia 19 FATHER Hypertension 19 FATHER Heart Disease Review of Systems Constitutional: No chills, No fever; malaise EENTM: no symptoms reported Respiratory: cough; No phlegm; short of breath Cardiovascular: no symptoms reported Gastrointestinal: No abdominal pain, No constipation; nausea; No vomiting Musculoskeletal: no symptoms reported Skin: no symptoms reported Psychiatric/Neurological: No Symptoms Reported Physical Exam Physical Exam Vital Signs Vital Signs - First Documented 08/29/19 08/29/19 18:09 18:50 Temp 36.8 Pulse 69 Resp 20 B/P (MAP) 181/115 (137) Pulse Ox 97 O2 Delivery Room Air O2 Flow Rate 4.00 FiO2 36 Capillary Refill : Less Than 3 SecondsLess Than 3 Seconds Height, Weight, BMI Height: 6'0" Weight: 174lbs. 3.0oz. 79.021124at; 23.78 BMI Method:Stated General Appearance: No Apparent Distress, WD/WN Eyes: Bilateral Eye Normal Inspection, Bilateral Eye PERRL, Bilateral Eye EOMI HEENT: PERRL/EOMI, Moist Mucous Membranes Neck: Normal Inspection, Supple Respiratory: Lungs Clear, No Accessory Muscle Use, Other (on 3lpm) Cardiovascular: Regular Rate, Rhythm, No Murmur Gastrointestinal: Normal Bowel Sounds, Non Tender, Soft Extremity: Other (left LLE wrapped in scotty bandage) Neurologic/Psychiatric: Alert, Oriented x3, Normal Mood/Affect Skin: Normal Color, Warm/Dry Results Results/Procedures Labs Laboratory Tests 08/29/19 18:13 08/30/19 04:40 Patient resulted labs reviewed. Imaging: Reviewed Imaging Report Imaging Date of Exam:08/29/19 CT ANGIO CHEST W PROCEDURE: CT angiography of the chest with contrast. TECHNIQUE: Multiple contiguous axial images were obtained through the chest after uneventful bolus administration of intravenous contrast. 3D reconstructed CTA MIP acquisitions were also performed. Auto Exposure Controls were utilized during the CT exam to meet ALARA standards for radiation dose reduction. INDICATION: Cough x 2 days. FINDINGS: There are emphysematous changes in the lungs. There are small patchy areas of consolidation at both medial lung bases with some bronchiectasis. There is no pulmonary embolism. There is no evidence of right ventricular strain. There are no effusions or pneumothoraces. Aorta is unremarkable. IMPRESSION: COPD. Basilar bronchiectasis with some peribronchiolar consolidation at the medial lung bases, bilaterally. No evidence for pulmonary embolism or other acute abnormality. Short Stay Diagnosis Discharge Diagnosis-Short Stay Admission Diagnosis Hyponatremia Final Discharge Diagnosis Hyponatremia Conclusion Plan Hyponatremia Resolved with IVF COPD Chronic respiratory failure Metastatic Lung Cancer Back to baseline oxygen requirement Continue home meds Follows with Dr Bernal and Dr Hoffman as an outpatient Seizure Disorder cont home antiseizure meds Left Tib/Fib Fracture Plans to follow up with Dr Watts for operative repair, advised to keep that appointment Diagnosis/Problems Diagnosis/Problems (1) Hyponatremia Status: Acute (2) Seizure disorder Status: Chronic (3) Closed left fibular fracture (4) Lung cancer metastatic to bone Status: Chronic Clinical Quality Measures DVT/VTE Risk/Contraindication: Risk Factor Score Per Nursin RFS Level Per Nursing on Admit: 4+=Very High YUKI OWUSU MD Aug 30, 2019 09:47
--- NOTE | 2019-08-30 09:52 | Discharge Inst-Simple/Standard ---
Discharge Inst-Standard Patient Instructions/Follow Up Plan of Care/Instructions/FU: Please continue to take your medications as written. Please follow up with Dr Feng this week and Dr Bernal next week as scheduled. Activity as Tolerated: Yes Discharge Diet: No Restrictions Return to The Hospital For: Shortness of breath, chest pain, fever, confusion, if you feel you are getting worse. YUKI OWUSU MD Aug 30, 2019 09:52
--- NOTE | 2019-08-30 10:26 | D/C HH Face to Face Order ---
D/C Face to Face Orders Reconcile Patient Problems Problems Reviewed?: Yes Instructions for Patient Via [facility], Patient Instructions/FollowUp: Please continue to take your medications when written. Please follow up with Dr Feng this week. Physician to follow Patient: Dr Feng Discharge Diet for Home: No Restrictions Patient Data-Allergies,Ht & Wt Patient Allergies: Coded Allergies: aspirin (Unverified Allergy, Mild, DOES NOT WORK WELL W/ OTHER MEDS, 07/23/19) ibuprofen (Unverified Allergy, Mild, 07/23/19) Height (Feet): 6 Height (Inches): 0 Weight (Pounds): 174 Weight (Ounces): 3.0 Home Health Need/Face to Face Date of Face to Face: Aug 30, 2019 Clinical Findings: Generalized weakness and fatigue, Shortness of breath I have seen Pt [id number]: Yes Discharged To: Home Diagnosis/Conditions: COPD, Lung Cancer, Hyponatremia Patient is Homebound due to: Ian fall risk due to instabilty, Shortness of breath/distress Homebound Status Due to the above stated illness, injury or surgical procedure (medical condition or diagnosis) and associated clinical findings, the patient is homebound because of his/her inability to leave home except with aid of a suppo rtive device and/or person AND leaving the home requires a considerable and taxing effort or is medically contraindicated. Pt req the following assistanc: Aid of another person, [facility] Nursing Orders Home Health Services Order: Nursing Services, Steward/Stewardess Second Class-Evaluate & Treat, Physical Therapy-Evaluate & Treat Therapy Orders Therapy Orders: OT (must have SN or PT order), Physical Therapy Therapy Specific Orders: Eval assistive deivces, Teach enviro modifications/safety, Increase strength/endurance Certify Stmt I certify that this patient is under my care and that I, a nurse practitioner or a physician; a clinical physician assistant working with me, had a face to face encounter that - meets the physician face to face encounter requirements with this patient as dated. YUKI OWUSU MD Aug 30, 2019 10:26
--- NOTE | 2019-08-30 10:28 | NUR ---
Pt feeling much improved. Would like to be discharged home today. He has been receiving [facility] and would like to resume Home Health Care. Will fax updated medical records from this current stay. Discussed continued care plans with pt's LATASHA Mays and she is also agreeable with discharge plan.
[2019-08-30 12:25] VITALS: BP 147/84
[2019-08-30 12:30] VITALS: BP 147/84
== END 2019-08-30 12:30 | disposition home or self-care (01) ==
LOC: EDUNIT# 18:09 → ER 18:10 → 4TH 20:58
PROVIDERS: ADMIT Internal Medicine; ATTEND Internal Medicine
DX: E78.1 Pure hyperglyceridemia (principal); J96.10 Chronic respiratory failure, unspecified whether with hypoxia or hypercapnia; J30.9 Allergic rhinitis, unspecified; J44.9 Chronic obstructive pulmonary disease, unspecified; C34.90 Malignant neoplasm of unspecified part of unspecified bronchus or lung; C79.51 Secondary malignant neoplasm of bone; I11.9 Hypertensive heart disease without heart failure; G47.30 Sleep apnea, unspecified; E78.00 Pure hypercholesterolemia, unspecified; G40.909 Epilepsy, unspecified, not intractable, without status epilepticus; M19.90 Unspecified osteoarthritis, unspecified site; F17.210 Nicotine dependence, cigarettes, uncomplicated; Z79.82 Long term (current) use of aspirin; Z88.6 Allergy status to analgesic agent; Z79.891 Long term (current) use of opiate analgesic; Z79.899 Other long term (current) drug therapy; Z92.21 Personal history of antineoplastic chemotherapy; Z83.3 Family history of diabetes mellitus
CPT/HCPCS: 36415; 36600; 71045; 71275; 80053; 80185; 82805; 83880; 84484; 85025; 86141; 93005; 94640; 94760; 96374; G0378

== ENCOUNTER 2019-08-31 14:39 | Emergency (ER) | payer MEDICARE, MEDICAID ==
[~2019-08-31] VITALS: Ht 182.9 cm; Wt 79.0 kg
[2019-08-31 15:19] LABS: BASOPHILS % (AUTO) 0 % (0-10); EOSINOPHILS % (AUTO) 0 % (0-10); HEMATOCRIT 34 % (40-54); HEMOGLOBIN 10.9 G/DL (13.3-17.7); LYMPHOCYTES # (AUTO) 0.7 X 10^3 (1.0-4.0); LYMPHOCYTES % (AUTO) 12 % (12-44); MEAN CORPUSCULAR HEMOGLOBIN 28 PG (25-34); MEAN CORPUSCULAR HGB CONC 32 G/DL (32-36); MEAN CORPUSCULAR VOLUME 87 FL (80-99); MEAN PLATELET VOLUME 8.6 FL (7.4-10.4); MONOCYTES # (AUTO) 0.8 X 10^3 (0.0-1.0); MONOCYTES % (AUTO) 15 % (0-12); NEUTROPHILS % (AUTO) 73 % (42-75); PLATELET COUNT 335 10^3/uL (130-400); RED CELL DISTRIBUTION WIDTH 15.8 % (10.0-14.5); WHITE BLOOD COUNT 5.5 10^3/uL (4.3-11.0)
[2019-08-31 15:20] LABS: ALBUMIN 3.8 GM/DL (3.2-4.5); CHLORIDE 96 MMOL/L (98-107); SODIUM 134 MMOL/L (135-145)
[2019-08-31 15:22] LABS: CALCIUM 8.9 MG/DL (8.5-10.1)
[2019-08-31 15:23] LABS: GLUCOSE 95 MG/DL (70-105); TOTAL PROTEIN 6.7 GM/DL (6.4-8.2)
[2019-08-31 15:24] LABS: CARBON DIOXIDE 30 MMOL/L (21-32)
[2019-08-31 15:25] LABS: BILIRUBIN,TOTAL 0.2 MG/DL (0.1-1.0)
[2019-08-31 15:26] LABS: ALKALINE PHOSPHATASE 156 U/L (40-136); CREATININE SERUM 0.78 MG/DL (0.60-1.30); GFR ESTIMATED > 60
[2019-08-31 15:27] LABS: BUN/CREATININE RATIO 10
[2019-08-31 15:29] LABS: ALANINE AMINOTRANSFERASE 8 U/L (0-55)
--- NOTE | 2019-08-31 15:44 | ED Cough/URI ---
General Chief Complaint: Respiratory Problems Stated Complaint: SOA Nursing Triage Note: Pt to room #4 via [facility] ems cart from home with c/o dry cough et SOA. [employer] [facility] adm [facility]. Pt reports he was dc'd from this hospital on 08/30/19. Pt denies fever, chills, or CP. Pt reports hx small cell lung CA. A&OX4. Sepsis Screen: No Definite Risk Source: patient Exam Limitations: no limitations History of Present Illness Date Seen by Provider: Aug 31, 2019 Time Seen by Provider: 15:00 Initial Comments 64-year-old male who was brought to the emergency room by [facility] for complaints of a dry cough and shortness of breath. Patient has history of small cell lung cancer. He was discharged from the hospital yesterday for hyponatremia. He denies any fevers, chills, or chest pain. He wears O2 constantly at 3-4 L. He is satting at 99% on arrival. He is alert and oriented. He also complains of pain to the coccyx area due to bedsores. Allergies and Home Medications Allergies Coded Allergies: aspirin (Unverified Allergy, Mild, DOES NOT WORK WELL W/ OTHER MEDS, 07/23/19) ibuprofen (Unverified Allergy, Mild, 07/23/19) Home Medications Acetaminophen 500 Mg Tablet, 1,000 MG PO Q6H PRN for PAIN-MILD (1-4), (Reported) Albuterol Sulfate 2.5 Mg/3 Ml Vial.neb, 2.5 MG NEB Q4H PRN for SHORTNESS OF BREATH, (Reported) Albuterol Sulfate 1 Puff Puff, 2 PUFF IH Q6H PRN for SHORTNESS OF BREATH, (Reported) Amlodipine Besylate 5 Mg Tablet, 5 MG PO 0800, (Reported) Atorvastatin Calcium 20 Mg Tablet, 10 MG PO 0300, (Reported) TAKES OF A 20MG ONCE DAILY Carbamazepine 200 Mg Tablet, 200 MG PO 0300,0800,2300, (Reported) Carbamazepine 200 Mg Tablet, 400 MG PO 1500, (Reported) TAKES 2 (200 MG) TABLETS Fluticasone/Salmeterol 12 Gm Hfa.aer.ad, 1 PUFF IH BID, (Reported) Gabapentin 300 Mg Capsule, 300 MG PO 2300, (Reported) Gabapentin 600 Mg Tablet, 600 MG PO 0800,1500, (Reported) Hydrocodone/Acetaminophen 1 Each Tablet, 1 TAB PO Q6H PRN for PAIN-MODERATE (5- 7), (Reported) Lamotrigine 25 Mg Tablet, 25 MG PO 0300, 1500, (Reported) TAKES 25MG @ 0300 25MG + 100MG @1500 Lamotrigine 100 Mg Tablet, 100 MG PO 1500,2300, (Reported) LAST FILLED 03-25-2019 #60/30 DAY SUPPLY PT TAKES 100MG AT 1500 & 2300 Omeprazole 20 Mg Capsule.dr, 20 MG PO DAILY, (Reported) Phenytoin Sodium Extended 100 Mg Capsule, 200 MG PO 0800,1500, (Reported) TAKES 2 (100 MG) CAPSULES Phenytoin Sodium Extended 100 Mg Capsule, 100 MG PO 2300, (Reported) Ropinirole HCl 0.5 Mg Tablet, 0.5 MG PO 1500, (Reported) Tiotropium Cameron 1 Inh Aerp, 1 CAP IH 1500, (Reported) Zinc Oxide 57 Gm Oint...g., 1 APPLIC TP EVERY 3 HOURS PRN for RASH, (Reported) Patient Home Medication List Home Medication List Reviewed: Yes Review of Systems Review of Systems Constitutional: see HPI; No chills, No fever Respiratory: see HPI, cough, short of breath All Other Systems Reviewed Negative Unless Noted: Yes Past Oxffxcy-Tfcqwl-Mbrnbc Hx Past Med/Social Hx: Reviewed Nursing Past Med/Soc Hx Patient Social History Drug of Choice: HX OF RX DRUG ABUSE, CLAIMS NONE 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 Type Used: Cigars, Cigarettes Former Smoker, Quit: Jan 29, 2017 2nd Hand Smoke Exposure: No Recent Foreign Travel: No Contact w/Someone Who Travel: No Recent Infectious Disease Expo: No Recent Hopitalizations: No Immunizations Up To Date Tetanus Booster (TDap): Less than 5yrs PED Vaccines UTD: Yes Date of Influenza Vaccine: Apr 21, 2018 Seasonal Allergies Seasonal Allergies: Yes Past Medical History Surgeries: Yes Eye Surgery, Gallbladder Respiratory: Yes (O2 AT 4L/NC CONTINUOUSLY) Asthma, Pneumonia, Chronic Bronchitis, Sleep Apnea, COPD Currently Using CPAP: No Currently Using BIPAP: No Cardiac: Yes Heart Murmur, High Cholesterol, Hypertension, Valvular Heart Disease 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) Neuropathy, Seizure Disorder, Vertigo Reproductive Disorders: No Sexually Transmitted Disease: No HIV/AIDS: No Genitourinary: No Gastrointestinal: Yes (CHRONIC NAUSEA/VOMITING) Musculoskeletal: Yes (HX C-SPINE FX/NON-UNION OF ODONTOID; FALLS;POST POLIO-L SIDE WEAKNESS/CONTR) Arthritis, Fractures, Contracture Endocrine: No HEENT: No Loss of Vision: Denies Hearing Impairment: Denies Cancer: Yes Bone, Lung Did You Recieve Any Treatments: Yes What Type of Treatment Did You: Chemotherapy Psychosocial: No Integumentary: No Blood Disorders: No Adverse Reaction/Blood Tranf: No Family Medical History Reviewed Nursing Family Hx Diabetes mellitus 19 MOTHER Hypercholesterolemia 19 FATHER Hypertension 19 FATHER Heart Disease Physical Exam Vital Signs - First Documented 08/31/19 14:40 Temp 36.7 Pulse 68 Resp 24 B/P (MAP) 140/86 (104) Pulse Ox 98 O2 Delivery Nasal Cannula O2 Flow Rate 4.00 Capillary Refill : Less Than 3 Seconds Height: 6'0" Weight: 174lbs. 3.0oz. [id number]; 23.00 BMI Method:Stated General Appearance: WD/WN, no apparent distress Respiratory: chest non-tender, lungs clear, normal breath sounds, no respiratory distress, no accessory muscle use Cardiovascular: normal peripheral pulses, regular rate, rhythm, no edema, no gallop, no JVD, no murmur Neurologic/Psychiatric: alert, normal mood/affect, oriented x 3 Skin: normal color, warm/dry Procedures/Interventions Date of ETT Placement: Mar 09, 2017 Time of ETT Placement: 1811 Suture Size: 5-0 Progress/Results/Core Measures Suspected Sepsis Recent Fever Within 48 Hours: No Infection Criteria Present: Suspected New Infection New/Unexplained Altered Menta: No Sepsis Screen: No Definite Risk SIRS Temperature: Pulse: 68 Respiratory Rate: 24 Laboratory Tests 08/31/19 14:53: White Blood Count 5.5 Blood Pressure 140 /86 Mean: 104 Laboratory Tests 08/31/19 14:53: Creatinine 0.78, Platelet Count 335, Total Bilirubin 0.2 Results/Orders Lab Results Laboratory Tests Test 08/31/19 14:53 Range/Units White Blood Count 5.5 4.3-11.0 10^3/uL Red Blood Count 3.92 L 4.35-5.85 10^6/uL Hemoglobin 10.9 L 13.3-17.7 G/DL Hematocrit 34 L 40-54 % Mean Corpuscular Volume 87 80-99 FL Mean Corpuscular Hemoglobin 28 25-34 PG Mean Corpuscular Hemoglobin Concent 32 32-36 G/DL Red Cell Distribution Width 15.8 H 10.0-14.5 % Platelet Count 335 130-400 10^3/uL Mean Platelet Volume 8.6 7.4-10.4 FL Neutrophils (%) (Auto) 73 42-75 % Lymphocytes (%) (Auto) 12 12-44 % Monocytes (%) (Auto) 15 H 0-12 % Eosinophils (%) (Auto) 0 0-10 % Basophils (%) (Auto) 0 0-10 % Neutrophils # (Auto) 4.0 1.8-7.8 X 10^3 Lymphocytes # (Auto) 0.7 L 1.0-4.0 X 10^3 Monocytes # (Auto) 0.8 0.0-1.0 X 10^3 Eosinophils # (Auto) 0.0 0.0-0.3 10^3/uL Basophils # (Auto) 0.0 0.0-0.1 10^3/uL Sodium Level 134 L 135-145 MMOL/L Potassium Level 4.0 3.6-5.0 MMOL/L Chloride Level 96 L 98-107 MMOL/L Carbon Dioxide Level 30 21-32 MMOL/L Anion Gap 8 5-14 MMOL/L Blood Urea Nitrogen 8 7-18 MG/DL Creatinine 0.78 0.60-1.30 MG/DL Estimat Glomerular Filtration Rate > 60 BUN/Creatinine Ratio 10 Glucose Level 95 70-105 MG/DL Calcium Level 8.9 8.5-10.1 MG/DL Corrected Calcium 9.1 8.5-10.1 MG/DL Total Bilirubin 0.2 0.1-1.0 MG/DL Aspartate Amino Transf (AST/SGOT) 13 5-34 U/L Alanine Aminotransferase (ALT/SGPT) 8 0-55 U/L Alkaline Phosphatase 156 H 40-136 U/L Total Protein 6.7 6.4-8.2 GM/DL Albumin 3.8 3.2-4.5 GM/DL My Orders Orders - NESTOR AVILEZ Cbc With Automated Diff (08/31/19 15:04) Comprehensive Metabolic Panel (08/31/19 15:04) O2 (08/31/19 15:04) Ed Iv/Invasive Line Start (08/31/19 15:04) Monitor-Rhythm Ecg Trace Only (08/31/19 15:04) Chest 1 View, Ap/Pa Only (08/31/19 15:04) Ns Iv 1000 Ml (Sodium Chloride 0.9%) (08/31/19 16:45) Ns Iv 1000 Ml (Sodium Chloride 0.9%) (08/31/19 16:37) Vital Signs/I&O 08/31/19 08/31/19 08/31/19 14:40 14:40 18:20 Temp 36.7 36.9 Pulse 68 72 Resp 24 22 B/P (MAP) 140/86 (104) 128/76 (104) Pulse Ox 98 98 98 O2 Delivery Nasal Cannula Nasal Cannula Nasal Cannula O2 Flow Rate 4.00 4.00 4.00 Capillary Refill : Less Than 3 Seconds Blood Pressure Mean: 104 Progress Note : Time: 16:12 Progress Note I have seen and evaluated the patient. I've informed him of his laboratory. He agrees with plan of care, plans for discharge but last saline fluid because he thinks that this will make him feel better. I have agreed to this and 1 L of normal saline infused prior to discharge. Departure Impression Primary Impression: Bedsores Additional Impression: Lung cancer Disposition: HOME, SELF-CARE Condition: Stable/Unchanged Departure-Patient Inst. Decision time for Depature: 16:12 Referrals: AMANDEEP FENG DO (PCP/Family) Primary Care Physician Patient Instructions: Pressure Sores (DC), Lung Cancer (DC) Add. Discharge Instructions: Be sure you are changing positions to alleviate pressure on her bottom. Home health needs to change your dressing on your bottom regularly. Continue your home medications as previously prescribed. Follow-up with Dr. Feng this week for recheck. Return back to the emergency room for worsening symptoms or concerns as needed. All discharge instructions reviewed with patient and/or family. Voiced understanding. NESTOR AVILEZ Aug 31, 2019 15:43
--- NOTE | 2019-08-31 15:52 | Diagnostic Imaging Report ---
INDICATION: Cough post recent hospital discharge. TECHNIQUE: Single view chest 3:29 PM. CORRELATION STUDY: 08/30/2019 FINDINGS: Right IJ Agozeg-s-Hoep catheter, tip stable over the SVC. Heart size and mediastinum unchanged. Perihilar and basilar areas of infiltrate are present, greatest at the right infrahilar region. Overall findings are stable. Overlying monitor leads are present. IMPRESSION: 1. Continued perihilar and right infrahilar infiltrate and/or atelectasis generally stable. Dictated by: Dictated on workstation # [id number]
--- NOTE | 2019-08-31 16:00 | NUR ---
Approx 5cm area non blanchable skin surrounding cocyx. X3 approx 1cm non blanchable open pressure wound to L cheek. Area cleaned, dried, et meplex drsg applied.
--- OUTSIDE RECORDS SUMMARY | 2019-08-31 16:07 | XMS REPORT | Clinical Summary ---
Author Author [facility] Organization [facility] Address Unknown Phone Unavailable Care Team Providers Care Manual Equipment Mechanic Name Role Phone Efra Valentino MD Unavailable Unavailable Source Comments Some departments are not documenting in the electronic medical record. If you d o not see the information that you expected, contact Release of Information in [facility] [employer] Information Management department at [phone] for further assistan ce in locating additional records.[facility] Allergies Comments Active Allergy Reactions Severity Noted [...]
[2019-08-31] MEDS ORDERED: NS IV 1000 ML 1,000 ML ONE (16:37)
--- NOTE | 2019-08-31 16:41 | NUR ---
Reviewed d/c instructions with pt. Pt signed papers et voices no further c/o or concerns. Pt reports to provided he now feels dizzy et is not leaving until he recieves a bag of fluids. PCCT assisted pt via ED w/c to FT1.
[2019-08-31] MEDS ORDERED: NS IV 1000 ML 1,000 ML IV SCH (16:45)
--- NOTE | 2019-08-31 17:00 | NUR ---
While ED staff was assisting pt from ED w/c to recliner, IV to L a/c was pulled out. Pressure et gauze applied to site. Provider notified.
[2019-08-31 18:20] VITALS: BP 128/76
== END 2019-08-31 18:20 | disposition home or self-care (01) ==
LOC: EDUNIT# 14:39 → ER 14:40
DX: C34.90 Malignant neoplasm of unspecified part of unspecified bronchus or lung (principal); C79.9 Secondary malignant neoplasm of unspecified site; L89.159 Pressure ulcer of sacral region, unspecified stage; I10 Essential (primary) hypertension; E78.00 Pure hypercholesterolemia, unspecified; J44.9 Chronic obstructive pulmonary disease, unspecified; G40.909 Epilepsy, unspecified, not intractable, without status epilepticus; Z88.6 Allergy status to analgesic agent; Z99.81 Dependence on supplemental oxygen; Z79.51 Long term (current) use of inhaled steroids; Z87.891 Personal history of nicotine dependence; Z85.830 Personal history of malignant neoplasm of bone
CPT/HCPCS: 36415; 71045; 80053; 85025; 93041

== ENCOUNTER 2019-09-03 18:12 | Inpatient (IN) | payer MEDICARE, MEDICAID ==
[~2019-09-03] VITALS: Ht 182.9 cm; Wt 82.7 kg
[2019-09-03] MEDS ORDERED: NS IV 1000 ML 1,000 ML IV SCH (18:24)
--- NOTE | 2019-09-03 18:33 | ED Neurological Problem ---
General Chief Complaint: Neuro-Stroke Like Symptoms Stated Complaint: SLOW SPEECH Source: patient, EMS Exam Limitations: no limitations History of Present Illness Date Seen by Provider: Sep 03, 2019 Time Seen by Provider: 18:15 Initial Comments Patient presents ER by EMS from home after his girlfriend called stating that he was not talking like his normal self. No confusion. Patient says he felt like his tongue was kind of thick. No new medications. He's been taking all his medications as prescribed. He says this happened yesterday lasted a few hours and went away. He says he already feels like symptoms are improving now. He does not check his blood sugar at home. EMS reports his blood sugar is 130s and blood pressure was around 190 systolic over 100. He denies cough, fever, chills, chest pain, nausea, sweats, abdominal pain, dysuria. Patient discharged home 3 days ago after a stay for hyponatremia. He has chronic hyponatremia running around 130 plus or minus. He has a history of non-small cell lung carcinoma. Allergies and Home Medications Allergies Coded Allergies: aspirin (Unverified Allergy, Mild, DOES NOT WORK WELL W/ OTHER MEDS, 07/23/19) ibuprofen (Unverified Allergy, Mild, 07/23/19) Home Medications Acetaminophen 500 Mg Tablet, 1,000 MG PO Q6H PRN for PAIN-MILD (1-4), (Reported) Albuterol Sulfate 2.5 Mg/3 Ml Vial.neb, 2.5 MG NEB Q4H PRN for SHORTNESS OF BREATH, (Reported) Albuterol Sulfate 1 Puff Puff, 2 PUFF IH Q6H PRN for SHORTNESS OF BREATH, (Reported) Amlodipine Besylate 5 Mg Tablet, 5 MG PO 0800, (Reported) Amlodipine Besylate 10 Mg Tablet, 10 MG PO DAILY Prescribed by: KALEN LUZ on 09/03/191948 Atorvastatin Calcium 20 Mg Tablet, 10 MG PO 0300, (Reported) TAKES OF A 20MG ONCE DAILY Carbamazepine 200 Mg Tablet, 200 MG PO 0300,0800,2300, (Reported) Carbamazepine 200 Mg Tablet, 400 MG PO 1500, (Reported) TAKES 2 (200 MG) TABLETS Fluticasone/Salmeterol 12 Gm Hfa.aer.ad, 1 PUFF IH BID, (Reported) Gabapentin 300 Mg Capsule, 300 MG PO 2300, (Reported) Gabapentin 600 Mg Tablet, 600 MG PO 0800,1500, (Reported) Hydrocodone/Acetaminophen 1 Each Tablet, 1 TAB PO Q6H PRN for PAIN-MODERATE (5- 7), (Reported) Lamotrigine 25 Mg Tablet, 25 MG PO 0300, 1500, (Reported) TAKES 25MG @ 0300 25MG + 100MG @1500 Lamotrigine 100 Mg Tablet, 100 MG PO 1500,2300, (Reported) LAST FILLED 03-25-2019 #60/30 DAY SUPPLY PT TAKES 100MG AT 1500 & 2300 Nystatin 1,000,000 Unit Powder.ea., 1,000,000 UNIT MC BID Prescribed by: KALEN LUZ on 09/03/191949 Omeprazole 20 Mg Capsule.dr, 20 MG PO DAILY, (Reported) Phenytoin Sodium Extended 100 Mg Capsule, 200 MG PO 0800,1500, (Reported) TAKES 2 (100 MG) CAPSULES Phenytoin Sodium Extended 100 Mg Capsule, 100 MG PO 2300, (Reported) Ropinirole HCl 0.5 Mg Tablet, 0.5 MG PO 1500, (Reported) Tiotropium [place] 1 Inh Aerp, 1 CAP IH 1500, (Reported) Zinc Oxide 57 Gm Oint...g., 1 APPLIC TP EVERY 3 HOURS PRN for RASH, (Reported) Patient Home Medication List Home Medication List Reviewed: Yes Review of Systems Review of Systems Constitutional: No chills, No diaphoresis Eyes: Denies Blindness, Denies Drainage Ears, Nose, Mouth, Throat: denies ear pain, denies ear discharge Respiratory: No cough, No short of breath Cardiovascular: No chest pain, No edema Gastrointestinal: No abdominal pain, No constipation, No diarrhea Genitourinary: No discharge, No dysuria Musculoskeletal: No back pain, No joint pain Skin: No dryness, No pruritus, No rash Psychiatric/Neurological: See HPI; Denies Anxiety, Denies Depressed, Denies Cognitive Dysfunction, Denies Headache, Denies Numbness, Denies [place] Seizures All Other Systems Reviewed Negative Unless Noted: Yes Past Bnkhium-Ytibwh-Qgpjfv Hx Patient Social History Alcohol Use: Denies Use Recreational Drug Use: No Drug of Choice: HX OF RX DRUG ABUSE, CLAIMS NONE 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 Smoking Status: Current Everyday Smoker Type Used: Cigars, Cigarettes Former Smoker, Quit: Jan 29, 2017 2nd Hand Smoke Exposure: No Recent Foreign Travel: No Contact w/Someone Who Travel: No Recent Hopitalizations: No Immunizations Up To Date Tetanus Booster (TDap): Less than 5yrs PED Vaccines UTD: Yes Date of Influenza Vaccine: Apr 21, 2018 Seasonal Allergies Seasonal Allergies: Yes Past Medical History Surgeries: Yes Eye Surgery, Gallbladder Respiratory: Yes (O2 AT 4L/NC CONTINUOUSLY) Asthma, Pneumonia, Chronic Bronchitis, Sleep Apnea, COPD Currently Using CPAP: No Currently Using BIPAP: No Cardiac: Yes Heart Murmur, High Cholesterol, Hypertension, Valvular Heart Disease 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) Neuropathy, Seizure Disorder, Vertigo Reproductive Disorders: No Sexually Transmitted Disease: No HIV/AIDS: No Genitourinary: No Gastrointestinal: Yes (CHRONIC NAUSEA/VOMITING) Musculoskeletal: Yes (HX C-SPINE FX/NON-UNION OF ODONTOID; FALLS;POST POLIO-L SIDE WEAKNESS/CONTR) Arthritis, Fractures, Contracture Endocrine: No HEENT: No Loss of Vision: Denies Hearing Impairment: Denies Cancer: Yes Bone, Lung Did You Recieve Any Treatments: Yes What Type of Treatment Did You: Chemotherapy Psychosocial: No Integumentary: No Blood Disorders: No Adverse Reaction/Blood Tranf: No Family Medical History Diabetes mellitus 19 MOTHER Hypercholesterolemia 19 FATHER Hypertension 19 FATHER Heart Disease Physical Exam Vital Signs Vital Signs - First Documented 09/03/19 18:15 Temp 36.6 Pulse 64 Resp 16 B/P (MAP) 175/90 (118) Pulse Ox 98 O2 Delivery Nasal Cannula O2 Flow Rate 4.00 Capillary Refill : Height, Weight, BMI Height: 6'0" Weight: 174lbs. 3.0oz. 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 It is held over 45 to the left which is his waistline) Motor/Sensory: no motor deficit, no sensory deficit, no pronator drift, other (generalized weakness 4 out of 5 upper extremities; 3 out of 5 lower extremities) Skin: other (duodenum covering some skin breakdown over his coccyx. Stage II. There does appear to be candidal infection of the soft tissue of the scrotum and both groins) Stroke Onset of Symptoms Date of Onset of Symptoms: Sep 02, 2019 Symptoms onset unknown: Yes NIH Stroke Scale Assessment Select: Initial Level of Consciousness: 0=Alert (0), Level of Consciousness- Questions: 0=Answers both month/age (0), LOC Commands: 0=Performs both tasks (0), Gaze: Normal (0), Visual Hernandez: 0=No visual loss (0), Facial Movement (Facial Paresis): 0=Normal symmetrical mnt (0), Motor Function-Arms Right: 0=No drift (0), Motor Function-Arms Left: 0=No drift (0), Motor Function-Legs Right: 2=Some effort/gravity (2), Motor Function-Legs Left: 3=No effort/gravity (3), Limb Ataxia: 0=Absent (0), Sensory: 0=Normal:no loss (0), Best Language: 0=No aphasia (0), Dysarthria: 0=Normal at his baseline which is mildly thick (0), Total: 5 Stroke Thrombolytic Exclusion Age 18 or Over: Yes Acute intenal hemorrhage: No History of CVA: No Uncontrolled Coagulation Defec: No Intracranial Hemorrhage: No Severe Hypertension: No GI or Bleed: No Subarachnoid Hemorrhage: No Intracranial Neoplasm/Aneurysm: No Oral Anticoagulants: No Surgery or Trauma: No Puncture of Non-Compressible V: No Recent CPR: No Diabetic Hemorrhagic Retinopat: No Organ Biopsy: No Recent Obstetric Delivery: No Glucose: No Significant Hepatic Dysfunctio: No NIH Stoke Scale >22: No Bacterial Endocarditis: No Pericarditis: No Improving Symptoms: Yes Platelets: No TPA Contraindication: Yes IV - TPa Received IV - TPa Procedure Performed?: No (improving symptoms and well outside the window since the symptoms started yesterday) Procedures/Interventions Date of ETT Placement: Mar 09, 2017 Time of ETT Placement: 1811 Suture Size: 5-0 Progress/Results/Core Measures Results/Orders Lab Results Laboratory Tests Test 09/03/19 18:18 09/03/19 18:21 Range/Units White Blood Count 5.5 4.3-11.0 10^3/uL Red Blood Count 4.03 L 4.35-5.85 10^6/uL Hemoglobin 11.3 L 13.3-17.7 G/DL Hematocrit 35 L 40-54 % Mean Corpuscular Volume 87 80-99 FL Mean Corpuscular Hemoglobin 28 25-34 PG Mean Corpuscular Hemoglobin Concent 32 32-36 G/DL Red Cell Distribution Width 15.7 H 10.0-14.5 % Platelet Count 272 130-400 10^3/uL Mean Platelet Volume 8.9 7.4-10.4 FL Neutrophils (%) (Auto) 68 42-75 % Lymphocytes (%) (Auto) 17 12-44 % Monocytes (%) (Auto) 16 H 0-12 % Eosinophils (%) (Auto) 0 0-10 % Basophils (%) (Auto) 0 0-10 % Neutrophils # (Auto) 3.8 1.8-7.8 X 10^3 Lymphocytes # (Auto) 0.9 L 1.0-4.0 X 10^3 Monocytes # (Auto) 0.9 0.0-1.0 X 10^3 Eosinophils # (Auto) 0.0 0.0-0.3 10^3/uL Basophils # (Auto) 0.0 0.0-0.1 10^3/uL Urine Color YELLOW Urine Clarity CLEAR Urine pH 7.0 5-9 Urine Specific [place] 1.010 L 1.016-1.022 Urine Protein NEGATIVE NEGATIVE Urine Glucose (UA) NEGATIVE NEGATIVE Urine Ketones NEGATIVE NEGATIVE Urine Nitrite NEGATIVE NEGATIVE Urine Bilirubin NEGATIVE NEGATIVE Urine Urobilinogen 0.2 < = 1.0 MG/DL Urine Leukocyte Esterase NEGATIVE NEGATIVE Urine RBC (Auto) NEGATIVE NEGATIVE Urine RBC NONE /HPF Urine WBC NONE /HPF Urine Squamous Epithelial Cells RARE /HPF Urine Crystals NONE /LPF Urine Bacteria NEGATIVE /HPF Urine Casts NONE /LPF Urine Mucus NEGATIVE /LPF Urine Culture Indicated NO Sodium Level 131 L 135-145 MMOL/L Potassium Level 4.6 3.6-5.0 MMOL/L Chloride Level 93 L 98-107 MMOL/L Carbon Dioxide Level 28 21-32 MMOL/L Anion Gap 10 5-14 MMOL/L Blood Urea Nitrogen 6 L 7-18 MG/DL Creatinine 0.67 0.60-1.30 MG/DL Estimat Glomerular Filtration Rate > 60 BUN/Creatinine Ratio 9 Glucose Level 103 70-105 MG/DL Calcium Level 8.6 8.5-10.1 MG/DL Corrected Calcium 8.7 8.5-10.1 MG/DL Total Bilirubin 0.2 0.1-1.0 MG/DL Aspartate Amino Transf (AST/SGOT) 12 5-34 U/L Alanine Aminotransferase (ALT/SGPT) 6 0-55 U/L Alkaline Phosphatase 164 H 40-136 U/L Troponin I < 0.028 <0.028 NG/ML C-Reactive Protein High Sensitivity 1.75 H 0.00-0.50 MG/DL B-Type Natriuretic Peptide 203.5 H <100.0 PG/ML Total Protein 6.7 6.4-8.2 GM/DL Albumin 3.9 3.2-4.5 GM/DL Urine Opiates Screen NEGATIVE NEGATIVE Urine Oxycodone Screen NEGATIVE NEGATIVE Urine Methadone Screen NEGATIVE NEGATIVE Urine Propoxyphene Screen NEGATIVE NEGATIVE Urine Barbiturates Screen POSITIVE H NEGATIVE Carbamazepine (Tegretol) Level 7.8 4.0-12.0 UG/ML Ur Tricyclic Antidepressants Screen NEGATIVE NEGATIVE Urine Phencyclidine Screen NEGATIVE NEGATIVE Urine Amphetamines Screen NEGATIVE NEGATIVE Urine Methamphetamines Screen NEGATIVE NEGATIVE Urine Benzodiazepines Screen NEGATIVE NEGATIVE Urine Cocaine Screen NEGATIVE NEGATIVE Urine Cannabinoids Screen NEGATIVE NEGATIVE Serum Alcohol < 10 <10 MG/DL Glucometer 102 70-110 MG/DL My Orders Orders - KALEN LUZ Ct Head Wo (09/03/19 18:24) Chest 1 View, Ap/Pa Only (09/03/19 18:24) Alcohol (09/03/19 18:24) BNP (09/03/19 18:24) Cbc With Automated Diff (09/03/19 18:24) Comprehensive Metabolic Panel (09/03/19 18:24) Hs C Reactive Protein (09/03/19 18:24) Ua Culture If Indicated (09/03/19 18:24) Blood Culture (09/03/19 18:24) Ed Iv/Invasive Line Start (09/03/19 18:24) Ns Iv 1000 Ml (Sodium Chloride 0.9%) (09/03/19 18:24) Drug Screen Stat (Urine) (09/03/19 18:24) Arterial Blood Gas (09/03/19 18:24) Ekg Tracing (09/03/19 18:38) Continuous Ekg Monitoring (09/03/19 18:38) Troponin I (09/03/19 18:38) Dilantin (Phenytoin) (09/03/19 19:40) Carbamazepine (Tegretol) (09/03/19 19:40) Vital Signs/I&O 09/03/19 18:15 Temp 36.6 Pulse 64 Resp 16 B/P (MAP) 175/90 (118) Pulse Ox 98 O2 Delivery Nasal Cannula O2 Flow Rate 4.00 Progress Progress Note #1: Time: 18:36 Progress Note Weakness, altered mental status secondary to hyponatremia? Blood pressure is 175/95 on arrival. Hypertensive urgency? He does not have any lateralizing symptoms just chronic weakness. Suspicion for ischemic stroke with no history of atrial fibrillation is lower given his presentation however we'll get a CT scan, labs, culture, urine, ABG. Infection could also be a contributor to his symptoms. Plan to give him a liter fluids and check a BNP and chest x-ray. Patient has asked that we check his Dilantin and Tegretol levels since he says the symptoms last time came on shortly after taking his medications and again today. He has an appointment on Friday with his primary care doctor he can follow these levels up. Progress Note #2: Time: 19:42 Progress Note On repeat examination patient is sitting himself up moving around all 4 extremities and back at baseline. His blood pressure is 165/93. Hypertensive urg ency versus possible toxidrome from his Dilantin which seems less likely since it comes and goes so quickly. He Is on amlodipine 5 mg so were going to double that and have him follow up Friday with his primary care doctor. 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 Plan to give him a prescription for nystatin. Progress Note #3: Time: 20:12 Progress Note Patient has had a chance to discuss this with his girlfriend and she does not want him to come home yet. He says now his vision is behaving like he is drunk. He says he does not want to go home now and would rather stay. We discussed that there is much further to workup but we will discuss this with inpatient medicine and see if we can come up with a plan. Initial ECG Impression Date: Sep 03, 2019 Initial ECG Rate: 1907 Initial ECG Rhythm: Normal Sinus Initial ECG Intervals: Normal Initial ECG Impression: Normal Initial ECG Comparisson: Unchanged Comment Normal sinus rhythm without clinically relevant ST T wave changes. Diagnostic Imaging Diagonstic Imaging: Xray Plain Films/CT/US/NM/MRI: chest (1v) Comments [facility], [place] NAME: CR QUIJANO [facility] REC#: [id number] PT STATUS: REG ER : 1955 PHYSICIAN: KALEN LUZ MD ADMIT DATE: 09/03/19/ER Draft Date of Exam:09/03/19 CHEST 1 VIEW, AP/PA ONLY INDICATION: Slurred speech Upright portable chest shows normal heart size and vascularity. There is right basilar discoid atelectasis. No infiltrates or effusions are seen. A Port-A-Cath is present. There is no acute bony abnormality. IMPRESSION: There is right basilar discoid atelectasis which is slightly worse than the prior study with no other significant change from 08/31/2019. Dictated on workstation # [id number] Dict: 09/03/191913 Trans: 09/03/191916 [facility] [id number] Interpreted by: KAIDEN DOBSON MD Electronically signed by: Reviewed: Reviewed by Me Diagonstic Imaging: CT (without IV contrast) Plain Films/CT/US/NM/MRI: head Comments NAME: [facility] REC#: [id number] PT STATUS: REG ER : 1955 PHYSICIAN: KALEN LUZ MD ADMIT DATE: 09/03/19/ER Draft Date of Exam:09/03/19 CT HEAD WO PROCEDURE: CT head without contrast. TECHNIQUE: Multiple contiguous axial images were obtained through the brain without the use of intravenous contrast. Auto Exposure Controls were utilized during the CT exam to meet ALARA standards for radiation dose reduction. INDICATION: Slurred speech. COMPARISON: CT head of 08/08/2019. FINDINGS: No hyperdense hemorrhage or space-occupying mass. 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 No hydrocephalus. No skull fracture. Paranasal sinuses and mastoid air cells are clear. Orbits are unchanged. IMPRESSION: 1. No acute intracranial process by CT. 2. Stable chronic volume loss in the right cerebral hemisphere. Dictated on workstation # [id number] Dict: 09/03/191909 Trans: 09/03/191915 AS6 [id number] Interpreted by: MONTRELL SPANN MD Electronically signed by: Reviewed: Reviewed by Me Departure Communication (Admissions) Time/Spoke to Admitting Phy: 20:10 Discussed the case with Dr. Multani and she agrees to observe the patient on the floor. Impression Primary Impression: Delirium Additional Impressions: Hypertensive urgency Genital candidiasis in male Pressure ulcer of coccygeal region, stage 2 Disposition: ADMITTED INPATIENT Condition: Stable Admissions Decision to Admit Reason: Admit from ER (General) Decision to Admit/Date: Sep 03, 2019 Time/Decision to Admit Time: 20:00 Departure-Patient Inst. Referrals: AMANDEEP GENAO DO (PCP/Family) Primary Care Physician SHARON JEONG MD Patient Instructions: Delirium (Confusion) (DC), High Blood Pressure in Adults Add. Discharge Instructions: I think your confusion may have something to do with how high your blood pressure was getting. We're going to increase your amlodipine from 5 mg to 10 mg. Take 2 tablets daily at the same time until you see your primary care doctor. Check your blood pressure once a day in the morning then write it down and take that with you to your doctor's appointment on Friday. Return to the ER if you have worsening symptoms. After cleaning the skin between your legs with regular soap and water make sure it is appropriately dry. Apply a light dusting of nystatin powder twice a day for the next 2 weeks. Do not apply nystatin powder to open skin. Follow-up with your coccygeal pressure ulcer through your primary care office. You may also call Dr. Aparicio at the outpatient clinic for help with healing your pressure ulcers. All discharge instructions reviewed with patient and/or family. Voiced unde rstanding. Scripts Nystatin (Nystatin) 1,000,000 Unit Powder.ea. [id number] UNIT MC BID for 14 Days, #1 UNIT 0 Refills Prov: KALEN LUZ 09/03/19 Amlodipine Besylate (Amlodipine Besylate) 10 Mg Tablet 10 MG PO DAILY for 14 Days, #14 TAB 0 Refills Prov: KALEN LUZ 09/03/19 Copy Copies To 1: AMANDEEP GENAO DO; SHARON JEONG MD, TITUS J Sep 03, 2019 18:33
[2019-09-03 18:48] LABS: BASOPHILS % (AUTO) 0 % (0-10); EOSINOPHILS % (AUTO) 0 % (0-10); HEMATOCRIT 35 % (40-54); HEMOGLOBIN 11.3 G/DL (13.3-17.7); LYMPHOCYTES # (AUTO) 0.9 X 10^3 (1.0-4.0); LYMPHOCYTES % (AUTO) 17 % (12-44); MEAN CORPUSCULAR HEMOGLOBIN 28 PG (25-34); MEAN CORPUSCULAR HGB CONC 32 G/DL (32-36); MEAN CORPUSCULAR VOLUME 87 FL (80-99); MEAN PLATELET VOLUME 8.9 FL (7.4-10.4); MONOCYTES # (AUTO) 0.9 X 10^3 (0.0-1.0); MONOCYTES % (AUTO) 16 % (0-12); NEUTROPHILS # (AUTO) 3.8 X 10^3 (1.8-7.8); NEUTROPHILS % (AUTO) 68 % (42-75); PLATELET COUNT 272 10^3/uL (130-400); RED CELL DISTRIBUTION WIDTH 15.7 % (10.0-14.5); WHITE BLOOD COUNT 5.5 10^3/uL (4.3-11.0)
[2019-09-03 18:50] LABS: BILIRUBIN,URINE NEGATIVE (NEGATIVE); CLARITY,URINE CLEAR; COLOR,URINE YELLOW; GLUCOSE, URINE (UA) NEGATIVE (NEGATIVE); KETONES,URINE NEGATIVE (NEGATIVE); LEUKOCYTE ESTERASE ,URINE NEGATIVE (NEGATIVE); NITRITE,URINE NEGATIVE (NEGATIVE); PROTEIN,URINE NEGATIVE (NEGATIVE)
[2019-09-03 18:58] LABS: ALBUMIN 3.9 GM/DL (3.2-4.5); BACTERIA,URINE NEGATIVE /HPF; CHLORIDE 93 MMOL/L (98-107); POTASSIUM 4.6 MMOL/L (3.6-5.0); SODIUM 131 MMOL/L (135-145); SQUAMOUS EPITHELIAL CELL,UR RARE /HPF
[2019-09-03 18:59] LABS: CALCIUM 8.6 MG/DL (8.5-10.1)
[2019-09-03 19:01] LABS: AMPHETAMINE SCREEN, URINE NEGATIVE (NEGATIVE); BARBITURATE SCREEN URINE POSITIVE (NEGATIVE); BENZODIAZEPINES SCREEN URINE NEGATIVE (NEGATIVE); CANNABINOID SCREEN, URINE NEGATIVE (NEGATIVE); COCAINE SCREEN URINE NEGATIVE (NEGATIVE); GLUCOSE 103 MG/DL (70-105); METHADONE STAT NEGATIVE (NEGATIVE); METHAMPHETAMINE SCREEN URINE S NEGATIVE (NEGATIVE); OPIATE SCREEN URINE NEGATIVE (NEGATIVE); OXYCODONE STAT NEGATIVE (NEGATIVE); PROPOXYPHENE STAT NEGATIVE (NEGATIVE); TOTAL PROTEIN 6.7 GM/DL (6.4-8.2); TRICYCLIC ANTIDEPRESSANTS SCRE NEGATIVE (NEGATIVE)
[2019-09-03 19:02] LABS: BILIRUBIN,TOTAL 0.2 MG/DL (0.1-1.0); CARBON DIOXIDE 28 MMOL/L (21-32)
[2019-09-03 19:04] LABS: ALKALINE PHOSPHATASE 164 U/L (40-136); CREATININE SERUM 0.67 MG/DL (0.60-1.30); GFR ESTIMATED > 60
[2019-09-03 19:05] LABS: BUN/CREATININE RATIO 9
[2019-09-03 19:07] LABS: ALANINE AMINOTRANSFERASE 6 U/L (0-55)
--- NOTE | 2019-09-03 19:17 | Diagnostic Imaging Report ---
PROCEDURE: CT head without contrast. TECHNIQUE: Multiple contiguous axial images were obtained through the brain without the use of intravenous contrast. Auto Exposure Controls were utilized during the CT exam to meet ALARA standards for radiation dose reduction. INDICATION: Slurred speech. COMPARISON: CT head of 08/08/2019. FINDINGS: No hyperdense hemorrhage or space-occupying mass. 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 No hydrocephalus. No skull fracture. Paranasal sinuses and mastoid air cells are clear. Orbits are unchanged. IMPRESSION: 1. No acute intracranial process by CT. 2. Stable chronic volume loss in the right cerebral hemisphere. Dictated by: Dictated on workstation # [id number]
--- NOTE | 2019-09-03 19:17 | Diagnostic Imaging Report ---
INDICATION: Slurred speech Upright portable chest shows normal heart size and vascularity. There is right basilar discoid atelectasis. No infiltrates or effusions are seen. A Port-A-Cath is present. There is no acute bony abnormality. IMPRESSION: There is right basilar discoid atelectasis which is slightly worse than the prior study with no other significant change from 08/31/2019. Dictated by: Dictated on workstation # [id number]
[2019-09-03] MEDS ORDERED: AMLO10TA7 PO (19:49)
[2019-09-03] MEDS ORDERED: [UNRECOGNIZED DRUG - CODE] MC (19:50)
[2019-09-03] MEDS ORDERED: amLODIPine 10 MG (NORVASC) TAB PO ONE (20:30)
--- NOTE | 2019-09-03 20:32 | NUR ---
Water test- patient swallowed right away. Pt swallowed second drink and did fine. Walking out of room pt coughed a little bit. No difficulty breathing.
[2019-09-03 20:45] VITALS: BP 166/88
--- OUTSIDE RECORDS SUMMARY | 2019-09-03 20:45 | XMS REPORT | Clinical Summary ---
Author Author [facility] Organization [facility] Address Unknown Phone Unavailable Care Team Providers Care Die Try Out Worker Name Role Phone Efra Valentino MD Unavailable Unavailable Source Comments Some departments are not documenting in the electronic medical record. If you d o not see the information that you expected, contact Release of Information in [facility] [employer] Information Management department at [phone] for further assistan ce in locating additional records.[facility] Allergies Comments Active Allergy Reactions Severity [...]
[2019-09-03 20:47] VITALS: BP 160/87
--- NOTE | 2019-09-03 21:45 | NUR ---
CR QUIJANO admitted to room 417-1, with an admitting diagnosis of DELERIUM AND WOUND CARE on 09/03/19 from [facility] via [facility], accompanied by STAFF. CR QUIJANO introduced to surroundings, call light, bed controls, phone, TV, temperature control, lights, meal times, smoking policy, visitor policy, side rail policy, bathrooms and showers. Patient Rights given to patient in the handbook. CR QUIJANO verbalizes understanding that [facility] is not responsible for the loss or damage to any personal effects or valuables that are kept in the patients possession during their hospitalization. Patient and/or family were informed about the Rapid Response Team and its purpose.
[2019-09-03 22:08] VITALS: BP 183/95
[2019-09-03] MEDS ORDERED: ACETAMINOPHEN 500 MG TAB (TYLENOL) PO PRN (22:15)
[2019-09-03] MEDS ORDERED: ONDANSETRON 4 MG/2 ML (SDV) Z0FRAN IV PRN (22:15)
[2019-09-03] MEDS ORDERED: LORazepam 0.5 MG (ATIVAN) TABLET PO PRN (22:15)
--- NOTE | 2019-09-03 22:35 | NUR ---
DR. OWUSU NOTIFIED OF PT WANTING TO RECEIVE HE NIGHT TIME DOSES OF HIS SEIZURE/BP MEDICATIONS. NEW ORDERS RECEIVED TO RESUME HOME SEIZURE/BP MEDS. WILL CONTINUE TO MONITOR.
[2019-09-03] MEDS ORDERED: PHENYTOIN 100 MG (DILANTIN) CAP PO SCH (23:00)
[2019-09-03] MEDS ORDERED: RT-ALBUTEROL/IPRATROPIUM 3 ML (DUONEB) VIAL INH PRN (23:00)
[2019-09-03] MEDS ORDERED: GABAPENTIN 300 MG (NEURONTIN) CAP PO SCH (23:00)
[2019-09-03] MEDS ORDERED: carBAMazepine 200 MG (TEGretol) TAB PO SCH (23:00)
[2019-09-04] VITALS (7 sets, daily range): BP systolic 110–169; BP diastolic 64–75
[2019-09-04] MEDS: RT-ALBUTEROL/IPRATROPIUM 3 ML (DUONEB) VIAL INH SCH ×4 (02:48→19:11)
[2019-09-04] MEDS ORDERED: lamoTRIgine 25 MG (LaMICtal) TAB PO SCH (03:00)
[2019-09-04] MEDS ORDERED: carBAMazepine 200 MG (TEGretol) TAB PO SCH ×2 (03:00→08:00)
[2019-09-04] MEDS ORDERED: lisINopril 20 MG (PRINIVIL) TABLET PO SCH (03:00)
[2019-09-04 06:50] LABS: BASOPHILS % (AUTO) 0 % (0-10); EOSINOPHILS % (AUTO) 0 % (0-10); HEMATOCRIT 34 % (40-54); HEMOGLOBIN 11.1 G/DL (13.3-17.7); LYMPHOCYTES # (AUTO) 0.7 X 10^3 (1.0-4.0); LYMPHOCYTES % (AUTO) 11 % (12-44); MEAN CORPUSCULAR HEMOGLOBIN 28 PG (25-34); MEAN CORPUSCULAR HGB CONC 33 G/DL (32-36); MEAN CORPUSCULAR VOLUME 87 FL (80-99); MONOCYTES # (AUTO) 0.8 X 10^3 (0.0-1.0); MONOCYTES % (AUTO) 13 % (0-12); NEUTROPHILS # (AUTO) 4.6 X 10^3 (1.8-7.8); NEUTROPHILS % (AUTO) 76 % (42-75); PLATELET COUNT 274 10^3/uL (130-400); RED CELL DISTRIBUTION WIDTH 15.5 % (10.0-14.5); WHITE BLOOD COUNT 6.1 10^3/uL (4.3-11.0)
[2019-09-04 07:06] LABS: ALBUMIN 3.8 GM/DL (3.2-4.5); CHLORIDE 96 MMOL/L (98-107); POTASSIUM 4.4 MMOL/L (3.6-5.0); SODIUM 134 MMOL/L (135-145)
[2019-09-04 07:07] LABS: CALCIUM 8.9 MG/DL (8.5-10.1)
[2019-09-04 07:08] LABS: GLUCOSE 103 MG/DL (70-105); TOTAL PROTEIN 6.8 GM/DL (6.4-8.2)
[2019-09-04 07:09] LABS: CARBON DIOXIDE 28 MMOL/L (21-32)
[2019-09-04 07:10] LABS: BILIRUBIN,TOTAL 0.2 MG/DL (0.1-1.0)
[2019-09-04 07:12] LABS: ALKALINE PHOSPHATASE 160 U/L (40-136); CREATININE SERUM 0.64 MG/DL (0.60-1.30); GFR ESTIMATED > 60
[2019-09-04 07:13] LABS: BUN/CREATININE RATIO 9
[2019-09-04 07:15] LABS: ALANINE AMINOTRANSFERASE 6 U/L (0-55)
[2019-09-04] MEDS ORDERED: GABAPENTIN 600 MG (NEURONTIN) TAB PO SCH (08:00)
[2019-09-04] MEDS ORDERED: PHENYTOIN 100 MG (DILANTIN) CAP PO SCH (08:00)
[2019-09-04] MEDS ORDERED: amLODIPine 10 MG (NORVASC) TAB PO SCH (09:00)
[2019-09-04] MEDS: carBAMazepine 200 MG (TEGretol) TAB PO SCH ×3 (09:03→22:51)
[2019-09-04] MEDS: PHENYTOIN 100 MG (DILANTIN) CAP PO SCH ×3 (09:05→22:50)
[2019-09-04] MEDS: MICONAZOLE 2% POWDER (DESENEX AF) 90 GM TOP SCH ×2 (09:05→20:55)
[2019-09-04] MEDS: GABAPENTIN 600 MG (NEURONTIN) TAB PO SCH ×2 (09:05→15:28)
--- NOTE | 2019-09-04 09:52 | NUR ---
DR OWUSU WOULD LIKE NORVAS CHANGED FROM 10MG TO 5MG, PHARMACY NOTIFIED. SPOKE WITH NOREEN (PHARM)
--- NOTE | 2019-09-04 13:50 | History & Physical-Hospitalist ---
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 He states it's hard to described and would move his hand back and forth in front of his eyes to described how he felt. He is feeling better but he thinks that it's going to come back and he is anxious about this. He has no specific complaints. His oxygen saturation is WNL on his baseline oxygen. He has no cough, chest pain, SOB, or any other specific complaints today. He is requesting staying in the hospital one more day though. Date Seen 09/04/19 Time Seen by a Provider: 13:38 Attending Physician Yuki Multani MD PCP Micky Feng DO Referring Physician Date of Admission Sep 03, 2019 at 20:15 Home Medications & Allergies Home Medications Reviewed patient Home Medication Reconciliation performed by pharmacy medication reconciliations cardiac cath technician and/or nursing. Patients Allergies have been reviewed. Allergies Allergies Coded Allergies aspirin (Unverified Allergy, Mild, DOES NOT WORK WELL W/ OTHER MEDS, 07/23/19) ibuprofen (Unverified Allergy, Mild, 07/23/19) Past Mggsavc-Gxlmpd-Zmpmxj Hx Past Med/Social Hx: Reviewed Nursing Past Med/Soc Hx Patient Social History Alcohol Use: Denies Use Recreational Drug Use: No Drug of Choice: HX OF RX DRUG ABUSE, CLAIMS NONE 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 Smoking Status: Current Everyday Smoker Former Smoker, Quit: Jan 29, 2017 Type Used: Cigars, Cigarettes 2nd Hand Smoke Exposure: No Recent Foreign Travel: No Contact w/other who traveled: No Recent Hopitalizations: No Recent Infectious Disease Expo: No Immunizations Up To Date Tetanus Booster (TDap): Less than 5yrs Pediatric: Yes Date of Influenza Vaccine: Apr 21, 2018 Seasonal Allergies Seasonal Allergies: Yes Past Medical History Surgeries: Eye Surgery, Gallbladder Respiratory: COPD, Emphysema, Pneumonia Currently Using CPAP: No Currently Using BIPAP: No Cardiac: Heart Murmur, High Cholesterol, Hypertension, Valvular Heart Disease Neurological: Neuropathy, Seizure Disorder, Vertigo Reproductive: No Sexually Transmitted Disease: No HIV/AIDS: No Musculoskeletal: Arthritis, Fractures, Contracture Loss of Vision: Denies Hearing Impairment: Denies Cancer: Bone, Lung Did You Recieve Any Treatments: Yes What Type of Treatment Did You: Chemotherapy History of Blood Disorders: No Adverse Reaction to Blood Salcedo: No Family History Reviewed Nursing Family Hx Diabetes mellitus 19 MOTHER Hypercholesterolemia 19 FATHER Hypertension 19 FATHER Heart Disease Review of Systems Constitutional: see HPI; No chills, No fever EENTM: no symptoms reported Respiratory: no symptoms reported Cardiovascular: no symptoms reported Gastrointestinal: no symptoms reported Genitourinary: no symptoms reported Musculoskeletal: no symptoms reported Skin: no symptoms reported Psychiatric/Neurological: No Symptoms Reported Physical Exam Physical Exam Vital Signs Vital Signs - First Documented 09/03/19 18:15 Temp 36.6 Pulse 64 Resp 16 B/P (MAP) 175/90 (118) Pulse Ox 98 O2 Delivery Nasal Cannula O2 Flow Rate 4.00 Capillary Refill : Less Than 3 SecondsLess Than 3 Seconds Height, Weight, BMI Height: 6'0" Weight: 174lbs. 3.0oz. [id number]; 24.96 BMI Method:Stated General Appearance: No Apparent Distress, WD/WN HEENT: PERRL/EOMI, Moist Mucous Membranes Neck: Other (limited ROM, scar consistent with recent surgery on posterior aspect of neck) Respiratory: No Accessory Muscle Use, Decreased Breath Sounds, Other (on 4lpm) Cardiovascular: Regular Rate, Rhythm, No Murmur Gastrointestinal: Normal Bowel Sounds, Non Tender, Soft Extremity: No Calf Tenderness, No Pedal Edema Neurologic/Psychiatric: Alert, Oriented x3, Normal Mood/Affect Skin: Normal Color, Warm/Dry Results Results/Procedures Labs Laboratory Tests 09/03/19 18:18 09/04/19 06:14 Patient resulted labs reviewed. Imaging: Reviewed Imaging Report Assessment/Plan Admission Diagnosis gpc bacteremia Admission Status: Observation Assessment and Plan GPC bacteremia ?atelectasis on CXR Does not meet sepsis criteria Rocephin started CXR shows atelectasis but no definitive PNA, will repeat in AM Procalcitonin ordered COPD metastatic lung cancer Chronic Respiratory failure Follows with Dr Hoffman for cancer and reports still on chemo Follows with Dr Bernal for COPD 4lpm baseline oxygen requirement Seizure disorder Continue home meds Chronic hyponatremia Near his baseline Trend left tib/fib fracture Has appointment with Dr Watts this month HTN Continue home meds Diagnosis/Problems Diagnosis/Problems (1) Chronic respiratory failure Status: Chronic Qualifiers: Respiratory failure complication: hypoxia Qualified Codes: J96.11 - Chronic respiratory failure with hypoxia (2) COPD (chronic obstructive pulmonary disease) Status: Chronic Qualifiers: COPD type: unspecified COPD Qualified Codes: J44.9 - Chronic obstructive pulmonary disease, unspecified (3) Lung cancer metastatic to bone Status: Chronic (4) Seizure disorder Status: Chronic (5) Hyponatremia Status: Acute (6) Closed left fibular fracture Status: Chronic Qualifiers: Encounter type: sequela Fracture morphology: unspecified fracture morphology (7) Odontoid fracture Status: Chronic Qualifiers: Encounter type: sequela Fracture type: closed Qualified Codes: S12.100S - Unspecified displaced fracture of second cervical vertebra, sequela (8) Post-polio syndrome Status: Acute Clinical Quality Measures DVT/VTE Risk/Contraindication: Risk Factor Score Per Nursin RFS Level Per Nursing on Admit: 4+=Very High Stroke: Date of last known well: Sep 02, 2019 Symptoms onset unknown: Yes YUKI MULTANI MD Sep 04, 2019 13:50
[2019-09-04] MEDS ORDERED: ENOXAPARIN 40 MG/0.4 ML (LOVENOX) SYR SQ SCH (14:00)
[2019-09-04] MEDS ORDERED: cefTRIAXone FOR IV USE 1,000 MG in WATER (STERILE) FOR INJECTION 10 ML IV SCH (14:00)
[2019-09-04] MEDS ORDERED: OXYC-471 PO (14:23)
--- NOTE | 2019-09-04 14:41 | NUR ---
WAFFLE CUSHION PLACED UNDER PT
[2019-09-04] MEDS ORDERED: oxyCODONE/APAP 5/325MG (PERCOCET 5) TABLET PO PRN (14:45)
[2019-09-04] MEDS ORDERED: TIOTROPIUM BROMIDE (SPIRIVA) 5'S INHALER IH SCH (15:00)
[2019-09-04] MEDS: UMECLIDINIUM BROMIDE (INCRUSE ELLIPTA) 7'S IH SCH (15:12)
[2019-09-04] MEDS: lamoTRIgine 25 MG (LaMICtal) TAB PO SCH (15:26)
[2019-09-04] MEDS: ENOXAPARIN 40 MG/0.4 ML (LOVENOX) SYR SC SCH (15:28)
[2019-09-04] MEDS: ADVAIR HFA 115/21 MCG INHALER 8 GM IH SCH (19:14)
--- NOTE | 2019-09-04 20:37 | NUR ---
Dr. Multani notified of pt's complaints of "double vision" and request to have IVF of Normal Saline started. New order rec to start NS at 75 mls/hr.
[2019-09-04] MEDS: NS IV 1000 ML 1,000 ML IV SCH (20:54)
[2019-09-04] MEDS: GABAPENTIN 300 MG (NEURONTIN) CAP PO SCH (22:50)
[2019-09-05] MEDS: carBAMazepine 200 MG (TEGretol) TAB PO SCH ×4 (03:18→23:13)
[2019-09-05] MEDS: lamoTRIgine 25 MG (LaMICtal) TAB PO SCH ×2 (03:18→14:33)
[2019-09-05] MEDS: lisINopril 20 MG (PRINIVIL) TABLET PO SCH (03:19)
[2019-09-05 03:28] VITALS: BP 140/66
[2019-09-05 05:16] LABS: HEMOGLOBIN 10.6 G/DL (13.3-17.7); MEAN PLATELET VOLUME 8.9 FL (7.4-10.4); RED CELL DISTRIBUTION WIDTH 15.1 % (10.0-14.5); WHITE BLOOD COUNT 5.7 10^3/uL (4.3-11.0)
[2019-09-05 05:25] LABS: CHLORIDE 92 MMOL/L (98-107); POTASSIUM 4.5 MMOL/L (3.6-5.0); SODIUM 129 MMOL/L (135-145)
[2019-09-05 05:26] LABS: CALCIUM 8.7 MG/DL (8.5-10.1)
[2019-09-05 05:27] LABS: GLUCOSE 106 MG/DL (70-105)
[2019-09-05 05:28] LABS: CARBON DIOXIDE 28 MMOL/L (21-32)
[2019-09-05 05:31] LABS: CREATININE SERUM 0.64 MG/DL (0.60-1.30); GFR ESTIMATED > 60
[2019-09-05 05:32] LABS: BUN/CREATININE RATIO 9
--- NOTE | 2019-09-05 07:10 | Diagnostic Imaging Report ---
INDICATION: Pneumonia. Comparison made with prior examination of 09/03/2019. FINDINGS: Heart size is normal. There is right basilar atelectasis and/or pneumonitis. No pneumothorax. Mediastinum is unremarkable. Jepimz-B-Kpmr catheter overlies right hemithorax. IMPRESSION: Right basilar atelectasis and/or pneumonitis. Dictated by: Dictated on workstation # [id number]
[2019-09-05] MEDS: GABAPENTIN 600 MG (NEURONTIN) TAB PO SCH ×2 (07:37→14:34)
[2019-09-05] MEDS: MICONAZOLE 2% POWDER (DESENEX AF) 90 GM TOP SCH ×2 (07:37→19:50)
[2019-09-05] MEDS: PHENYTOIN 100 MG (DILANTIN) CAP PO SCH ×3 (07:38→23:14)
[2019-09-05] MEDS: amLODIPine 5 MG (NORVASC) TAB PO SCH (07:38)
[2019-09-05 07:46] VITALS: BP 155/74
[2019-09-05] MEDS: ADVAIR HFA 115/21 MCG INHALER 8 GM IH SCH ×2 (09:14→22:15)
[2019-09-05] MEDS: RT-ALBUTEROL/IPRATROPIUM 3 ML (DUONEB) VIAL INH SCH ×3 (09:14→22:15)
[2019-09-05] MEDS: NS IV 1000 ML 1,000 ML IV SCH ×2 (10:13→23:45)
--- NOTE | 2019-09-05 10:53 | Progress Note - Hospitalist ---
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 He states it's hard to described and would move his hand back and forth in front of his eyes to described how he felt. He is feeling better but he thinks that it's going to come back and he is anxious about this. He has no specific complaints. His oxygen saturation is WNL on his baseline oxygen. He has no cough, chest pain, SOB, or any other specific complaints today. He is requesting staying in the hospital one more day though. Subjective/Events-last exam Pt reports still having blurred/double vision. Had negative CT head in ER. Not currently having symptoms. Associates it with taking his medicine. Objective Exam Vital Signs Vital Signs Date Time Temp Pulse Resp B/P (MAP) Pulse Ox O2 Delivery O2 Flow Rate FiO2 09/05/19 09:15 95 Nasal Cannula 4.00 09/05/19 07:46 36.4 62 20 155/74 (101) Capillary Refill : Less Than 3 SecondsLess Than 3 Seconds General Appearance: No Apparent Distress, Chronically ill Respiratory: Lungs Clear, No Respiratory Distress Cardiovascular: Regular Rate, Rhythm, No Murmur Neurologic/Psychiatric: Alert, Oriented x3, Normal Mood/Affect Results/Procedures Lab Laboratory Tests 09/05/19 05:06 Patient resulted labs reviewed. Imaging: Reviewed Imaging Report Assessment/Plan Assessment and Plan Assess & Plan/Chief Complaint Enterococcus ?atelectasis on CXR Does not meet sepsis criteria Vanc CXR shows persistent atelectasis but no definitive PNA Consult Pulm in the AM COPD metastatic lung cancer Chronic Respiratory failure Follows with Dr Hoffman for cancer and reports still on chemo Follows with Dr Bernal for COPD 4lpm baseline oxygen requirement Order MRI in the AM as CT head negative Seizure disorder Continue home meds Chronic hyponatremia Near his baseline Trend left tib/fib fracture Has appointment with Dr Watts this month HTN Continue home meds Diagnosis/Problems Diagnosis/Problems (1) Chronic respiratory failure Status: Chronic Qualifiers: Respiratory failure complication: hypoxia Qualified Codes: J96.11 - Chronic respiratory failure with hypoxia (2) COPD (chronic obstructive pulmonary disease) Status: Chronic Qualifiers: COPD type: unspecified COPD Qualified Codes: J44.9 - Chronic obstructive pulmonary disease, unspecified (3) Lung cancer metastatic to bone Status: Chronic (4) Seizure disorder Status: Chronic (5) Hyponatremia Status: Acute (6) Closed left fibular fracture Status: Chronic Qualifiers: Encounter type: sequela Fracture morphology: unspecified fracture morphology (7) Odontoid fracture Status: Chronic Qualifiers: Encounter type: sequela Fracture type: closed Qualified Codes: S12.100S - Unspecified displaced fracture of second cervical vertebra, sequela (8) Post-polio syndrome Status: Acute Clinical Quality Measures DVT/VTE Risk/Contraindication: Risk Factor Score Per Nursin RFS Level Per Nursing on Admit: 4+=Very High Stroke: Date of last known well: Sep 02, 2019 Symptoms onset unknown: Yes YUKI OWUSU MD Sep 05, 2019 10:53
[2019-09-05] MEDS ORDERED: VANCOMYCIN INJECTION 0.1 MG in NS (IVPB) 250 ML IV SCH (11:00)
--- NOTE | 2019-09-05 11:21 | NUR ---
CR 0.64; CR CL > 60; WT 82.5 KG; WILL CONTINUE VANCO DOSING PER LAST ADMIT; VANCO 2000 MG IV BOLUS THEN 1750 MG IV Q12H; TROUGH AFTER 4TH DOSE
[2019-09-05] MEDS ORDERED: VANCOMYCIN 2000 MG/NS 500 ML IVPB IV NR ×2 (11:30)
[2019-09-05 11:49] VITALS: BP 148/76
[2019-09-05] MEDS ORDERED: diphenhydrAMINE 25 MG TAB (BENADRYL) PO PRN (12:45)
[2019-09-05] MEDS: UMECLIDINIUM BROMIDE (INCRUSE ELLIPTA) 7'S IH SCH (14:32)
[2019-09-05] MEDS: ENOXAPARIN 40 MG/0.4 ML (LOVENOX) SYR SC SCH (14:34)
[2019-09-05 16:14] VITALS: BP 112/69
[2019-09-05] MEDS ORDERED: rOPINIRole 5 MG TAB (REQUIP) PO SCH (19:30)
[2019-09-05 19:39] VITALS: BP 122/70
[2019-09-05] MEDS ORDERED: rOPINIRole 0.25 MG (REQUIP) TAB PO ONE (23:00)
[2019-09-05] MEDS: GABAPENTIN 300 MG (NEURONTIN) CAP PO SCH (23:14)
[2019-09-05] MEDS: VANCOMYCIN 1,750 MG/NS 500 ML IVPB IV SCH ×2 (23:45)
[2019-09-05 23:52] VITALS: BP 137/64
[2019-09-06] MEDS: RT-ALBUTEROL/IPRATROPIUM 3 ML (DUONEB) VIAL INH SCH ×3 (02:20→15:12)
[2019-09-06] MEDS: lisINopril 20 MG (PRINIVIL) TABLET PO SCH (02:50)
[2019-09-06] MEDS: lamoTRIgine 25 MG (LaMICtal) TAB PO SCH ×2 (02:50→15:18)
[2019-09-06] MEDS: carBAMazepine 200 MG (TEGretol) TAB PO SCH ×3 (02:50→15:18)
[2019-09-06 04:00] VITALS: BP 139/71
--- NOTE | 2019-09-06 06:16 | NUR ---
Dr. Bernal notified of consult.
[2019-09-06 07:14] VITALS: BP 154/82
--- NOTE | 2019-09-06 07:32 | Pulmonary Consultation ---
History of Present Illness History of Present Illness Date Seen by Provider: Sep 06, 2019 Time Seen by Provider: 07:29 Date of Admission Allergies and Home Medications Allergies Coded Allergies: aspirin (Unverified Allergy, Mild, DOES NOT WORK WELL W/ OTHER MEDS, 07/23/19) ibuprofen (Unverified Allergy, Mild, 07/23/19) Home Medications Acetaminophen 500 Mg Tablet, 1,000 MG PO Q6H PRN for PAIN-MILD (1-4), (Reported) Albuterol Sulfate 2.5 Mg/3 Ml Vial.neb, 2.5 MG NEB Q4H PRN for SHORTNESS OF BREATH, (Reported) Albuterol Sulfate 1 Puff Puff, 2 PUFF IH Q6H PRN for SHORTNESS OF BREATH, (Reported) Amlodipine Besylate 5 Mg Tablet, 5 MG PO 0800, (Reported) Amlodipine Besylate 10 Mg Tablet, 10 MG PO DAILY Prescribed by: KALEN LUZ on 09/03/191948 Atorvastatin Calcium 20 Mg Tablet, 10 MG PO 0300, (Reported) TAKES OF A 20MG ONCE DAILY Carbamazepine 200 Mg Tablet, 200 MG PO 0300,0800,2300, (Reported) Carbamazepine 200 Mg Tablet, 400 MG PO 1500, (Reported) TAKES 2 (200 MG) TABLETS Fluticasone/Salmeterol 12 Gm Hfa.aer.ad, 1 PUFF IH BID, (Reported) Gabapentin 300 Mg Capsule, 300 MG PO 2300, (Reported) Gabapentin 600 Mg Tablet, 600 MG PO 0800,1500, (Reported) Hydrocodone/Acetaminophen 1 Each Tablet, 1 TAB PO Q6H PRN for PAIN-MODERATE (5- 7), (Reported) Lamotrigine 25 Mg Tablet, 25 MG PO 0300, 1500, (Reported) TAKES 25MG @ 0300 25MG + 100MG @1500 Lamotrigine 100 Mg Tablet, 100 MG PO 1500,2300, (Reported) LAST FILLED 03-25-2019 #60/30 DAY SUPPLY PT TAKES 100MG AT 1500 & 2300 Nystatin 1,000,000 Unit Powder.ea., 1,000,000 UNIT MC BID Prescribed by: KALEN LUZ on 09/03/191949 Omeprazole 20 Mg Capsule.dr, 20 MG PO DAILY, (Reported) Oxycodone HCl/Acetaminophen 1 Each Tablet, 1-2 EACH PO Q4H PRN for PAIN-SEVERE (8-10), (Reported) Phenytoin Sodium Extended 100 Mg Capsule, 200 MG PO 0800,1500, (Reported) TAKES 2 (100 MG) CAPSULES Phenytoin Sodium Extended 100 Mg Capsule, 100 MG PO 2300, (Reported) Ropinirole HCl 0.5 Mg Tablet, 0.5 MG PO 1500, (Reported) Tiotropium Wolverine 1 Inh Aerp, 1 CAP IH 1500, (Reported) Zinc Oxide 57 Gm Oint...g., 1 APPLIC TP EVERY 3 HOURS PRN for RASH, (Reported) Past Uucjyig-Kinzap-Yhkfdo Hx Past Med/Social Hx: Reviewed Nursing Past Med/Soc Hx Patient Social History Alcohol Use: Denies Use Recreational Drug Use: No Drug of Choice: HX OF RX DRUG ABUSE, CLAIMS NONE 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 Smoking Status: Current Everyday Smoker Type Used: Cigars, Cigarettes Former Smoker, Quit: Jan 29, 2017 2nd Hand Smoke Exposure: No Recent Foreign Travel: No Contact w/Someone Who Travel: No Recent Infectious Disease Expo: No Recent Hopitalizations: No Physical Abuse: No Sexual Abuse: No Mistreated: No Fear: No Immunizations Up To Date Tetanus Booster (TDap): Less than 5yrs PED Vaccines UTD: Yes Date of Influenza Vaccine: Apr 21, 2018 Seasonal Allergies Seasonal Allergies: Yes Past Medical History Surgeries: Yes Eye Surgery, Gallbladder Respiratory: Yes (O2 AT 4L/NC CONTINUOUSLY) Asthma, Pneumonia, Chronic Bronchitis, Sleep Apnea, COPD Currently Using CPAP: No Currently Using BIPAP: No Cardiac: Yes Heart Murmur, High Cholesterol, Hypertension, Valvular Heart Disease Neurological: Yes (POST POLIO SYNDROME WITH LEFT SIDE WEAKNESS AND CONTRA CTURES) Neuropathy, Seizure Disorder, Vertigo Reproductive Disorders: No Sexually Transmitted Disease: No HIV/AIDS: No Genitourinary: No Gastrointestinal: Yes (CHRONIC NAUSEA/VOMITING) Musculoskeletal: Yes (HX C-SPINE FX/NON-UNION OF ODONTOID; FALLS;POST POLIO-L SIDE WEAKNESS/CONTR) Arthritis, Fractures, Contracture Endocrine: No HEENT: No Loss of Vision: Denies Hearing Impairment: Denies Cancer: Yes Bone, Lung Did You Recieve Any Treatments: Yes What Type of Treatment Did You: Chemotherapy Psychosocial: No Integumentary: No Blood Disorders: No Adverse Reaction/Blood Tranf: No Family Medical History Reviewed Nursing Family Hx Diabetes mellitus 19 MOTHER Hypercholesterolemia 19 FATHER Hypertension 19 FATHER Heart Disease Sepsis Event Evaluation Height, Weight, BMI Height: 6'0" Weight: 174lbs. 3.0oz. 79.228268mu; 24.96 BMI Method:Stated Exam Exam Vital Signs Date Time Temp Pulse Resp B/P (MAP) Pulse Ox O2 Delivery O2 Flow Rate FiO2 09/06/19 07:14 36.8 64 16 154/82 (106) 98 Nasal Cannula 4.00 09/06/19 04:00 37.2 69 21 139/71 (93) 94 Nasal Cannula 4.00 09/06/19 02:20 94 Nasal Cannula 4.00 09/06/19 01:00 80 09/05/19 23:52 37.1 64 20 137/64 (88) 93 Nasal Cannula 4.00 09/05/19 22:15 94 09/05/19 22:15 94 Nasal Cannula 4.00 09/05/19 19:50 Nasal Cannula 4.00 09/05/19 19:39 36.9 70 16 122/70 (87) 98 Nasal Cannula 4.00 09/05/19 19:00 80 09/05/19 16:14 36.6 72 15 112/69 (83) 97 Nasal Cannula 4.00 09/05/19 12:41 58 09/05/19 11:49 36.3 57 20 148/76 (100) 98 Nasal Cannula 4.00 09/05/19 09:15 95 Nasal Cannula 4.00 09/05/19 09:15 95 09/05/19 08:00 98 Nasal Cannula 4.00 09/05/19 07:46 36.4 62 20 155/74 (101) 98 Nasal Cannula 4.00 I & O 09/06/19 07:00 Intake Total 2957.5 ml Output Total 3675 ml Balance -717.5 ml Height & Weight Height: 6'0" Weight: 174lbs. 3.0oz. 79.217920ua; 24.96 BMI Method:Stated General Appearance: No Apparent Distress, Chronically ill HEENT: PERRL/EOMI, Moist Mucous Membranes Neck: Other (limited ROM, scar consistent with recent surgery on posterior aspect of neck) Respiratory: Lungs Clear, No Respiratory Distress Cardiovascular: Regular Rate, Rhythm, No Murmur Capillary Refill: Less Than 3 Seconds Gastrointestinal: normal bowel sounds, non tender, soft Extremity: No Calf Tenderness, No Pedal Edema Neurologic/Psychiatric: Alert, Oriented x3, Normal Mood/Affect Skin: Normal Color, Warm/Dry Results Lab Laboratory Tests 09/05/19 05:06 Assessment/Plan Assessment/Plan Chronic respiratory failure Bacteremia with Enterococcus -Currently on Vanco Severe oxygen dependant COPD (4 liters at home) -DuoNebs -Advair Atelectasis -IS -Increase activity Hx of metastatic lung cancer -Follows with Dr. Hoffman Seizure disorder Continue home meds Chronic hyponatremia Near his baseline Monitor left tib/fib fracture Has appointment with Dr Watts this month HTN Continue home meds RANI PACHECO DO Sep 06, 2019 07:32
[2019-09-06] MEDS: GABAPENTIN 600 MG (NEURONTIN) TAB PO SCH ×2 (09:06→15:19)
[2019-09-06] MEDS: PHENYTOIN 100 MG (DILANTIN) CAP PO SCH ×2 (09:06→15:18)
[2019-09-06] MEDS: MICONAZOLE 2% POWDER (DESENEX AF) 90 GM TOP SCH (09:06)
[2019-09-06] MEDS: amLODIPine 5 MG (NORVASC) TAB PO SCH (09:06)
[2019-09-06] MEDS: ADVAIR HFA 115/21 MCG INHALER 8 GM IH SCH (09:18)
[2019-09-06] MEDS: UMECLIDINIUM BROMIDE (INCRUSE ELLIPTA) 7'S IH SCH (09:18)
[2019-09-06] MEDS ORDERED: AMOX500C2 PO (10:40)
--- NOTE | 2019-09-06 10:43 | NUR ---
PT TAKEN OFF FLOOR FOR MRI VIA WHEELCHAIR
--- NOTE | 2019-09-06 11:29 | Diagnostic Imaging Report ---
PROCEDURE: MR imaging of the brain without contrast. TECHNIQUE: Multiplanar, multisequence MR imaging of the brain was performed without contrast. INDICATION: Slurred speech. Double vision. COMPARISON: CT head on 09/03/2019. MRI brain on 07/22/2018. FINDINGS: No acute ischemia, mass, or hemorrhage. There is stable generalized parenchymal volume loss in the right cerebral hemisphere with stable ex vacuo dilation of the right lateral ventricle. Scattered chronic microvascular disease is seen in the periventricular and subcortical white matter. The basilar cisterns are symmetric and unremarkable. The sellar and suprasellar regions have a normal appearance. The brainstem and posterior fossa are unremarkable. The paranasal sinuses demonstrate normal signal characteristics. Fluid is seen throughout the bilateral mastoid air cells. Bilateral lens implants are noted. The globes and orbits are symmetric and unremarkable. A prominent sebaceous cyst is seen in the scalp overlying the right parietal region. The calvarium is intact. IMPRESSION: 1. No acute ischemia, mass, or hemorrhage. 2. Stable appearance of the right cerebral hemisphere with volume loss and ex vacuo dilation of the right lateral ventricle. This may represent prior trauma or ischemic event versus congenital malformation. 3. Bilateral mastoid effusions. Dictated by: Dictated on workstation # [id number]
[2019-09-06 11:35] VITALS: BP 155/78
[2019-09-06] MEDS: VANCOMYCIN 1,750 MG/NS 500 ML IVPB IV SCH ×2 (12:45)
--- NOTE | 2019-09-06 13:54 | NUR ---
Maria Ines montenegro and his caregiver Tabatha. Pt has history of multiple hospitalizations with multiple chronic medical conditions. He requires nearly 24 hour care provided by Tabatha and her daughter who are both [employer]. He is pleased to be going home and Tabatha states his mental status is back to normal and she is willing to assume his caregiving and will transport him home.
--- NOTE | 2019-09-06 14:22 | NUR ---
"RD ASSESSMENT PMHx: COPD; CA([id number]); chronic respiratory failure; HTN; emphysema; hypercholesterolemia; seizure disorder PT INTERACTION: Pt was awake and pleasant during nutrition assessment. Note this RD noticed pt was having difficulties feeding himself and the front of his gown was soiled with food, upon visual assessment. Pt states current appetite is good. Note avg PO intake 58% x2d, per chart review. Pt states following a regular diet at home and has no issues with chewing/swallowing food. Pt states no recent issues with nausea, vomiting, constipation, or diarrhea. Note last BM was 09/03, and pt not currently on bowel regimen per chart review. Pt states no recent wt changes. Note recent 13# wt gain x3mon, per chart review. ABNORMAL NUTRITION-RELATED LAB VALUES LOW: Na 129; Cl 92; BUN 6 HIGH: glu 106 Est. kcal needs: 4032-3431 kcal | 25-30 kcal/kg Est. Pro needs: 66-83 g Pro | 0.8-1.0 g Pro/kg PES STATEMENT: Inadequate oral intake (NI-2.1) related to loss of appetite | difficulty feeding as evidenced by pt interview | avg PO intake 58% x2d INTERVENTION: Continue with current diet order of Regular diet. Pt may benefit from feeding assistance at meal times. Pt may benefit from nutrition supplementation if PO intake declines. Will continue to follow and reassess as pt needs, intake, and status change. MONITOR/EVALUATE: PO Intake; Plan of Care; Hydration Status; Weight Status; Lab Values Garett Oliver, MS, RD, LD"
[2019-09-06 15:35] VITALS: BP 155/78
[2019-09-07] MEDS ORDERED: TROUGH ORDER-PHARMACY XX NR (11:00)
--- NOTE | 2019-09-07 16:14 | Discharge Summary ---
Discharge Summary Hospital Course Problems/Dx: (1) Bacteremia due to Enterococcus Status: Acute (2) Enterococcus faecalis infection Status: Acute (3) Chronic respiratory failure Status: Chronic Qualifiers: Qualified Codes: J96.11 - Chronic respiratory failure with hypoxia (4) COPD (chronic obstructive pulmonary disease) Status: Chronic Qualifiers: Qualified Codes: J44.9 - Chronic obstructive pulmonary disease, unspecified (5) Lung cancer metastatic to bone Status: Chronic (6) Seizure disorder Status: Chronic (7) Hyponatremia Status: Acute (8) Closed left fibular fracture Status: Chronic Qualifiers: (9) Odontoid fracture Status: Chronic Qualifiers: Qualified Codes: S12.100S - Unspecified displaced fracture of second cerv ical vertebra, sequela (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 He was started on vancomycin. His sensitivities returned and he was transitioned to amoxicillin. He will complete a 2 week total course of antibiotics. He should follow-up with his primary care physician, Dr. Genao. He already has an appointment scheduled to follow up with orthopedic surgery. He was discharged in stable condition. Labs and Pending Lab Test: Microbiology 09/03/19 Blood Culture - Preliminary, Resulted No growth Home Meds Active Amoxicillin 500 Mg Capsule 500 Mg PO TID 10 Days Nystatin 1,000,000 Unit Powder.ea. 1,000,000 Unit MC BID 14 Days Amlodipine Besylate 10 Mg Tablet 10 Mg PO DAILY 14 Days Reported Oxycodone-Acetaminophen 5-325 (Oxycodone HCl/Acetaminophen) 1 Each Tablet 1-2 Each PO Q4H PRN MDD 6 Boudreauxs (Zinc Oxide) 57 Gm Oint...g. 1 Applic TP EVERY 3 HOURS PRN Acetaminophen 500 Mg Tablet 1,000 Mg PO Q6H PRN Hydrocodone/Acetaminophen 5 MG/325 MG TAB (Hydrocodone/Acetaminophen) 1 Each Tablet 1 Tab PO Q6H PRN MDD 10 TABS Lamictal (Lamotrigine) 100 Mg Tablet 100 Mg PO 1500,2300 LAST FILLED 03-25-2019 #60/30 DAY SUPPLY PT TAKES 100MG AT 1500 & 2300 Ropinirole HCl 0.5 Mg Tablet 0.5 Mg PO 1500 Advair Hfa 115-21 Mcg Inhaler (Fluticasone/Salmeterol) 12 Gm Hfa.aer.ad 1 Puff IH BID Atorvastatin Calcium 20 Mg Tablet 10 Mg PO 0300 TAKES OF A 20MG ONCE DAILY Omeprazole 20 Mg Capsule.dr 20 Mg PO DAILY Carbamazepine 200 Mg Tablet 400 Mg PO 1500 TAKES 2 (200 MG) TABLETS Amlodipine Besylate 5 Mg Tablet 5 Mg PO 0800 Lamotrigine 25 Mg Tablet 25 Mg PO 0300, 1500 TAKES 25MG @ 0300 25MG + 100MG @1500 Proair Hfa (Albuterol Sulfate) 1 Puff Puff 2 Puff IH Q6H PRN Spiriva (Tiotropium [place]) 1 Inh Aerp 1 Cap IH 1500 Albuterol Sulfate 2.5 Mg/3 Ml Vial.neb 2.5 Mg NEB Q4H PRN Tegretol (Carbamazepine) 200 Mg Tablet 200 Mg PO 0300,0800,2300 Phenytoin Sodium Extended 100 Mg Capsule 100 Mg PO 2300 Phenytoin Sodium Extended 100 Mg Capsule 200 Mg PO 0800,1500 TAKES 2 (100 MG) CAPSULES Gabapentin 600 Mg Tablet 600 Mg PO 0800,1500 Gabapentin 300 Mg Capsule 300 Mg PO 2300 Assessment/Pt Instructions Take medications as prescribed. Complete her course of antibiotics even appear feeling better. Follow-up with your primary care physician. Discharge Planning: <30 minutes discharge planning Discharge Instructions Discharge Diet: No Restrictions Activity as Tolerated: Yes Pneumonia Vaccine Order Indica: Yes Discharge Physical Examination Vital Signs Vital Signs Date Time Temp Pulse Resp B/P (MAP) Pulse Ox O2 Delivery O2 Flow Rate FiO2 09/06/19 15:35 36.2 65 16 155/78 98 Nasal Cannula 4.00 General Appearance: No Apparent Distress, Chronically ill Respiratory: Lungs Clear, Normal Breath Sounds, No Respiratory Distress Cardiovascular: Regular Rate, Rhythm, No Edema, No Murmur Gastrointestinal: Normal Bowel Sounds, Non Tender, Soft Extremity: Non Tender, No Pedal Edema, Other (Left leg bandaged) Skin: Normal Color, Warm/Dry Neurologic/Psychiatric: Alert, Oriented x3, Normal Mood/Affect Allergies: Coded Allergies: aspirin (Unverified Allergy, Mild, DOES NOT WORK WELL W/ OTHER MEDS, 07/23/19) ibuprofen (Unverified Allergy, Mild, 07/23/19) Copy Copies To 1: MICKY GENAO DO Discharge Summary Date of Admission Sep 05, 2019 at 14:51 Date of Discharge Sep 06, 2019 at 15:35 Discharge Date: Sep 06, 2019 Discharge Time: 15:35 Admission Diagnosis gpc bacteremia Discharge Diagnosis (1) Chronic respiratory failure Status: Chronic Qualifiers: Qualified Codes: J96.11 - Chronic respiratory failure with hypoxia (2) COPD (chronic obstructive pulmonary disease) Status: Chronic Qualifiers: Qualified Codes: J44.9 - Chronic obstructive pulmonary disease, unspecified (3) Lung cancer metastatic to bone Status: Chronic (4) Seizure disorder Status: Chronic (5) Hyponatremia Status: Acute (6) Closed left fibular fracture Status: Chronic Qualifiers: (7) Odontoid fracture Status: Chronic Qualifiers: Qualified Codes: S12.100S - Unspecified displaced fracture of second cervical vertebra, sequela (8) Post-polio syndrome Status: Acute (9) Bacteremia due to Enterococcus Status: Acute (10) Enterococcus faecalis infection Status: Acute Clinical Quality Measures DVT/VTE Risk/Contraindication: Risk Factor Score Per Nursin RFS Level Per Nursing on Admit: 4+=Very High Stroke: Date of last known well: Sep 02, 2019 Symptoms onset unknown: Yes SENG JOSEPH MD Sep 07, 2019 16:14
== END 2019-09-06 15:35 | disposition home or self-care (01) | DRG 872 ==
LOC: EDUNIT# 18:12 → ER 18:14 → 4TH 20:15 → OBSVTOIN 09-05 14:51
PROVIDERS: ADMIT Family Medicine; ATTEND Internal Medicine
DX: A41.81 Sepsis due to Enterococcus (principal); J96.10 Chronic respiratory failure, unspecified whether with hypoxia or hypercapnia; J43.9 Emphysema, unspecified; C34.90 Malignant neoplasm of unspecified part of unspecified bronchus or lung; C79.51 Secondary malignant neoplasm of bone; E87.1 Hypo-osmolality and hyponatremia; J98.11 Atelectasis; G81.94 Hemiplegia, unspecified affecting left nondominant side; S12.100K Unspecified displaced fracture of second cervical vertebra, subsequent encounter for fracture with nonunion; I38 Endocarditis, valve unspecified; I16.0 Hypertensive urgency; I10 Essential (primary) hypertension; G40.909 Epilepsy, unspecified, not intractable, without status epilepticus; S82.402D Unspecified fracture of shaft of left fibula, subsequent encounter for closed fracture with routine healing; G14 Postpolio syndrome; M24.50 Contracture, unspecified joint; B37.2 Candidiasis of skin and nail; G47.30 Sleep apnea, unspecified; E78.00 Pure hypercholesterolemia, unspecified; G62.9 Polyneuropathy, unspecified; L89.152 Pressure ulcer of sacral region, stage 2; Z99.81 Dependence on supplemental oxygen; Z87.891 Personal history of nicotine dependence
CPT/HCPCS: 36415; 70450; 70551; 71045; 80048; 80053; 80156; 80185; 80306; 80320; 81000; 82962; 83880; 84145; 84484; 85025; 85027; 86141; 87040; 87077; 87186; 94640; 94760; G0378

== ENCOUNTER 2019-09-20 05:34 | Outpatient (RCR) | payer MEDICARE, MEDICAID ==
[~2019-09-20] VITALS: Ht 182 cm; Wt 82.7 kg
[~2019-09-20 05:34] MED LIST changes: +AMLO10TA7 PO; +OXYC-471 PO; +[UNRECOGNIZED DRUG - CODE] MC
[2019-09-20] MEDS ORDERED: MELO15TA39 PO (09:05)
[2019-09-20] MEDS ORDERED: LAMO100T5 PO (09:05)
[2019-09-20] MEDS ORDERED: GABA300C PO (09:05)
[2019-09-20 09:10] VITALS: BP 134/89
== END 2019-09-20 09:58 | disposition home or self-care (01) ==
LOC: PREOP 05:34
PROVIDERS: ATTEND Orthopaedic Surgery
DX: Z01.818 Encounter for other preprocedural examination (principal); S82.202A Unspecified fracture of shaft of left tibia, initial encounter for closed fracture; Z20.828 Contact with and (suspected) exposure to other viral communicable diseases
CPT/HCPCS: 87081; 87635

== ENCOUNTER 2019-09-22 07:32 | Day surgery (SDC) | payer MEDICARE, MEDICAID ==
--- NOTE | 2019-09-16 16:54 | HISTORY AND PHYSICAL ---
DATE OF SERVICE: This will be for inpatient admission on 09/01/2019 for left tibia and internal fixation versus intramedullary mirella. HISTORY OF PRESENT ILLNESS: The patient is a 64-year-old gentleman who sustained a left tibia fracture at the beginning of the coronavirus pandemic. At that point, his COPD was poorly controlled. He recently had pneumonia and was felt by his primary care provider to be a very poor surgical candidate. Unfortunately, the fracture has gone on to nonunion with shifting of the fracture and because of this, the patient elected to proceed with surgical intervention. REVIEW OF SYSTEMS: No chest pain, no shortness of breath, no dysuria. PAST MEDICAL HISTORY: COPD, polio lung cancer, epilepsy, bone cancer. PAST SURGICAL HISTORY: Cholecystectomy, port placement. FAMILY HISTORY: Noncontributory. PRIMARY CARE PROVIDER: Dr. Feng. PAST SURGICAL HISTORY: Significant for recent cervical fusion. MEDICATIONS: Dilantin, Norvasc, gabapentin, Tegretol, meloxicam, Lamictal, Lipitor, lisinopril. ALLERGIES: ASPIRIN AND HYDROCODONE. SOCIAL HISTORY: The patient denies alcohol use. He is a former smoker. PHYSICAL EXAMINATION: GENERAL: The patient is well-developed, well-nourished, in no acute distress. HEENT: Normocephalic, atraumatic. Pupils are equal, round and reactive to light. Oropharynx is clear. NECK: Supple, with no lymphadenopathy. LUNGS: Clear to auscultation bilaterally. HEART: Regular rate and rhythm. ABDOMEN: Soft, nontender, nondistended. EXTREMITIES: The left leg demonstrates no skin lesions. He is neurovascularly intact distally with symmetric pulses. IMPRESSION: Displaced nonunion left tibia fracture. PLAN: Left tibia intramedullary nail versus internal fixation. Risks, benefits, options, ramifications and recovery were discussed at length with the patient and his caregiver. Specifically, the patient is at very high risk for perioperative complications. Systemically as well as at risk for wound complications and loss of his leg. He understands this and wishes to proceed. Job ID: [id number] DocumentID: [id number] Dictated Date: 08/21/2019 16:07:36 Horticulture Superintendent Date: 08/21/2019 18:33:10 Dictated By: SHARON RUBY MD
[~2019-09-22] VITALS: Ht 182 cm; Wt 82.7 kg
[2019-09-22] VITALS (12 sets, daily range): BP systolic 127–170; BP diastolic 61–101
[~2019-09-22 07:32] MED LIST changes: +ACETAMINOPHEN 325 MG TABLET PO PRN; +GABA300C PO; +ONDANSETRON 4 MG/2 ML (SDV) Z0FRAN IVP PRN; +morphine PCA 100 MG/100 ML BAG IV PRN; +oxyCODONE/APAP 5/325MG (PERCOCET 5) TABLET PO PRN
[2019-09-22] MEDS ORDERED: LACTATED RINGERS 1,000 ML IV PRN (07:41)
[2019-09-22] MEDS ORDERED: ceFAZolin INJECTION 1,000 MG in WATER (STERILE) FOR INJECTION 10 ML IV ONE (07:45)
--- OUTSIDE RECORDS SUMMARY | 2019-09-22 07:47 | XMS REPORT | Clinical Summary ---
Author [facility] Address Unknown Phone Unavailable Care Team Providers Care Learning And Development Associate Name Role Phone Efra Valentino MD Unavailable Unavailable Source Comments Some departments are not documenting in the electronic medical record. If you d o not see the information that you expected, contact Release of Information in [facility] [employer] Information Management department at [phone] for further assistan ce in locating additional records.[facility] Allergies Comments Active Allergy Reactions Severity [...]
--- NOTE | 2019-09-22 09:20 | Progress Note-Pre Operative ---
Pre-Operative Progress Note H&P Reviewed The H&P was reviewed, patient examined and no changes noted. Date Seen by Provider: Sep 22, 2019 Time Seen by Provider: 09:05 Date H&P Reviewed: Sep 22, 2019 Time H&P Reviewed: 09:00 Pre-Operative Diagnosis: left tibia shaft fracture nonunion SHARON RUBY MD Sep 22, 2019 09:20
[2019-09-22] MEDS ORDERED: DEXAMETHASONE 10 MG/ML (DECADRON) 1 ML VIAL ONE (09:21)
[2019-09-22] MEDS ORDERED: MIDAZOLAM 2 MG/2 ML (VERSED) VIAL ONE (09:21)
[2019-09-22] MEDS ORDERED: ONDANSETRON 4 MG/2 ML (SDV) Z0FRAN ONE (09:21)
[2019-09-22] MEDS ORDERED: PROPOFOL INJECTION 50 ML IV ONE (09:21)
--- NOTE | 2019-09-22 09:21 | Progress Note-Post Operative ---
Post-Operative Progess Note Surgeon (s)/Cargo Operations Agent (s) Surgeon SHARON RUBY MD Cargo Operations Agent: Thad Soliz Pre-Operative Diagnosis left tibia shaft fracture nonunion Post-Operative Diagnosis left tibia shaft fracture malunion Procedure & Operative Findings Date of Procedure 09/22/19 Procedure Performed/Findings left tibia JULIA and EUA Anesthesia Type GETA Estimated Blood Loss Estimated blood loss (mL): none Specimens/Packing Specimens Removed none Packing: none SHARON RUBY MD Sep 22, 2019 09:21
[2019-09-22] MEDS ORDERED: fentaNYL INJECTION 100 MCG/2 ML AMP ONE (09:22)
[2019-09-22] MEDS ORDERED: ceFAZolin INJECTION 1,000 MG VIAL IV ONE (10:15)
[2019-09-22] MEDS ORDERED: fentaNYL INJECTION 100 MCG/2 ML AMP IVP ONE (10:15)
[2019-09-22] MEDS ORDERED: oxyCODONE/APAP 5/325MG (PERCOCET 5) TABLET PO PRN (10:15)
[2019-09-22] MEDS ORDERED: ONDANSETRON 4 MG/2 ML (SDV) Z0FRAN IVP PRN (10:15)
--- NOTE | 2019-09-22 11:55 | NUR ---
pt able to move 4 extremities. slight sensation in lower extremities
[2019-09-22] MEDS ORDERED: OXYC-471 PO (12:09)
--- NOTE | 2019-09-22 13:34 | OPERATIVE REPORT ---
DATE OF SERVICE: 09/22/2019 PREOPERATIVE DIAGNOSIS: Left tibia shaft fracture. POSTOPERATIVE DIAGNOSIS: Left tibia shaft fracture. PROCEDURE: Left tibia examination under anesthesia and manipulation. SURGEON: Aamir Watts MD CLEANER AND TRIMMER: Thad Soliz, who assisted throughout the procedure. ANESTHESIA: Spinal by Rosoevelt Casas. ESTIMATED BLOOD LOSS: Not applicable. COMPLICATIONS: None applicable. COMPLICATIONS: None. POSTOPERATIVE PLAN: Toe touch weightbearing left lower extremity. The patient was transferred to the recovery room awake and stable condition. STATEMENT OF MEDICAL NECESSITY: The patient is a 64-year-old gentleman who sustained a left tibial fracture three months ago. The patient was considered a non-operative candidate by his specialist and primary care physician. According to his , he has been admitted six times since the time of his fracture. We have been trying to obtain surgical clearance since the time of his injury. His course has been complicated by the multiple respiratory issues that have required admission. The fracture did shift during followup and it was recommended the patient undergo operative fixation. We waited clearance from his physicians. We spoke to those physician's office on several occasions, but were told that the patient was unable to follow up at scheduled times due to transportation issues. Ultimately clearance was obtained last week, and we planned for operative fixation today. The patient and his significant other were counseled prior to surgery today that if there was skin breakdown or any lesions that we would not proceed with surgery due to the risk of infection. The patient has several severe comorbidities and is high risk for surgical intervention and a high risk for infection. DESCRIPTION OF PROCEDURE: After risks and benefits of procedure were discussed and questions were answered, an informed consent was signed and placed on chart, the operative site was confirmed in the preoperative holding area and the patient was transferred to the operating room and after adequate levels of regional anesthetic were obtained, a timeout was called, confirming the operative site. The fracture site was visualized under fluoroscopic visualization. The fracture was stressed grossly in the medial, lateral and anterior and posterior planes and found to be stable. There was abundant callus across the fracture site. There was some malrotation noted with external rotation of the fragment distally and some shortening. Due to the patient's comorbidities and very high risk of infection, it was elected to treat this in the united fashion and if he were to require a much more detailed osteotomy with realignment that he would be referred to a trauma specialist if he had problems with the leg in the future. It was felt that his risk of infection was too great if the fracture site was opened and the surgical dissection that would be required to take down his union at his fracture site would lead to devascularization and a much higher risk of below knee amputation due to infection. The patient was placed in a boot and transferred to the recovery room. I then spoke with the patient's significant other who was very upset with me. I explained that the fracture appeared to be united though in a malrotated position. I explained to the patient that the reasoning was that his risk of complications with an osteotomy and fracture site take down outweighed the benefits and that if something needs to be done in the future, a realigned osteotomy could be performed. The patient's significant other became very angry and asked why his fracture was not addressed earlier. I explained in multiple ways and multiple times that he was not cleared for surgery. I could not take him to surgery because his medical risks were too great and he had not obtained clearance. She agreed with this. I explained to the patient's significant other that he was at high risk of . As a surgeon that we have to weigh risks and benefits and the risks were too great at that point. We had had him scheduled multiple times for surgery; however clearance was never obtained. When clearance was obtained, he was immediately put on the surgical schedule, which was today. I explained to the patient that when weighing risks and benefits that yes indeed he does have malrotation at his fracture site; however, it was my feeling that the benefits to a three to four hour operation, which would require devascularization, opening of the fracture was too great for the patient and that he would have a likelihood of losing his leg. I explained to the patient's significant other that the risk of a below-knee amputation was too great and outweighed the benefit of any intervention at this point. I did not rule out the possibility of intervention at a later date. She stated that her concern is that he will "end up in a wheelchair." I explained that if this goes on to full union that he should not require in a wheelchair. I did, however, explain to her that if he has a below-knee amputation or develops an infection, which is a significant likelihood with an open procedure that he would ultimately end up in a wheelchair. I asked the patient's significant other if there were any other questions, I can answer or anything that she would like to tell me. She stated that she was "done with me." At one point, the patient stated that I was talking down to her. I apologized to the patient and explained to her that in no means that I want her to feel that I was talking down to her that I do not feel that I am above anyone I apologize. I also told her that though I understood her concern, I weighed the risks and benefits of options for her . She did not seem agreed with my decisions. I explained that ultimately from the beginning of this fracture that I have been trying to do what is best for the patient. I explained to her multiple times that I had tried to do surgery on him from the very beginning, but he was not a surgical candidate. He then had to have neck surgery and required multiple hospitalizations for pulmonary complications. When surgical clearance was given, he was immediately put on the surgical schedule. I did not want her to have the impression that he was unwilling to operate on the patient. I explained that this was an unusual situation and that in a "healthy" patient with this fracture, they would have been taken to surgery in an acute setting and had an intramedullary mirella placed. I explained to her that this could not be performed on her because of his health risk at that time and that medical clearance had not been obtained. This was reiterated by several physicians during the course of his care. In addition, Dr. Machado, who performed his spine surgery spoke with me prior to his intervention. He was apparently developing myelopathy and had to undergo a very large cervical procedure. He asked if it would be best to do something with his tibia at that point and I said that if he wanted to, he could, but I did not feel that it was necessary as he was at very high risk of surgery at that point according to Dr. Machado and that it was best at that point to get his neck addressed and then to address his tibia separately once clearance had been obtained. If Dr. Machado had been performed tibia procedure, this would have prolonged his time under anesthesia and put him at greater risk. Job ID: [id number] DocumentID: [id number] Dictated Date: 09/22/2019 10:38:36 Home Security Professional Date: 09/22/2019 13:34:27 Dictated By: AAMIR WATTS MD
--- NOTE | 2019-09-22 13:50 | NUR ---
PT ABLE TO MOVE BILAT LOWER EXT. SENSATION NORMAL. UNABLE TO URINATE AT THIS TIME. JUDAH OSCAR REPORTS PT SHOULD URINATE PRIOR TO DC. PT NOTIFIED.
--- NOTE | 2019-09-22 15:40 | NUR ---
PT INCONT OF LARGE AMOUNT OF URINE
[2019-09-22] MEDS ORDERED: ceFAZolin INJECTION 1,000 MG in WATER (STERILE) FOR INJECTION 10 ML IV SCH (16:00)
[2019-09-23] MEDS ORDERED: ENOXAPARIN 30 MG/0.3 ML (LOVENOX) SYR SC SCH (07:30)
== END 2019-09-22 15:53 | disposition home or self-care (01) ==
LOC: SDC 07:32
PROVIDERS: ATTEND Orthopaedic Surgery
DX: S82.202K Unspecified fracture of shaft of left tibia, subsequent encounter for closed fracture with nonunion (principal); J44.9 Chronic obstructive pulmonary disease, unspecified; G40.909 Epilepsy, unspecified, not intractable, without status epilepticus; I10 Essential (primary) hypertension; Z79.51 Long term (current) use of inhaled steroids; Z79.899 Other long term (current) drug therapy; Z88.5 Allergy status to narcotic agent; Z87.891 Personal history of nicotine dependence; Z85.830 Personal history of malignant neoplasm of bone; Z85.118 Personal history of other malignant neoplasm of bronchus and lung; Z90.49 Acquired absence of other specified parts of digestive tract
CPT/HCPCS: 76000

== ENCOUNTER 2019-09-27 10:01 | Outpatient (RCR) | payer MEDICARE, MEDICAID ==
[2019-07-15 09:30] LABS: BASOPHILS % (AUTO) 0 % (0-10); EOSINOPHILS % (AUTO) 0 % (0-10); HEMATOCRIT 36 % (40-54); HEMOGLOBIN 11.7 G/DL (13.3-17.7); LYMPHOCYTES # (AUTO) 0.7 X 10^3 (1.0-4.0); LYMPHOCYTES % (AUTO) 7 % (12-44); MEAN CORPUSCULAR HEMOGLOBIN 28 PG (25-34); MEAN CORPUSCULAR HGB CONC 32 G/DL (32-36); MEAN CORPUSCULAR VOLUME 87 FL (80-99); MEAN PLATELET VOLUME 8.4 FL (7.4-10.4); MONOCYTES # (AUTO) 1.2 X 10^3 (0.0-1.0); MONOCYTES % (AUTO) 12 % (0-12); NEUTROPHILS % (AUTO) 81 % (42-75); PLATELET COUNT 338 10^3/uL (130-400); RED CELL DISTRIBUTION WIDTH 14.9 % (10.0-14.5); WHITE BLOOD COUNT 9.9 10^3/uL (4.3-11.0)
[2019-07-15 09:46] LABS: ALANINE AMINOTRANSFERASE 12 U/L (0-55); ALBUMIN 3.9 GM/DL (3.2-4.5); ALKALINE PHOSPHATASE 195 U/L (40-136); BILIRUBIN,TOTAL 0.2 MG/DL (0.1-1.0); BUN/CREATININE RATIO 11; CALCIUM 8.9 MG/DL (8.5-10.1); CARBON DIOXIDE 28 MMOL/L (21-32); CHLORIDE 89 MMOL/L (98-107); CREATININE SERUM 0.66 MG/DL (0.60-1.30); GFR ESTIMATED > 60; GLUCOSE 117 MG/DL (70-105); POTASSIUM 4.8 MMOL/L (3.6-5.0); SODIUM 127 MMOL/L (135-145); TOTAL PROTEIN 7.1 GM/DL (6.4-8.2)
[~2019-09-27 10:01] MED LIST changes: -ACETAMINOPHEN 325 MG TABLET PO PRN; +NIVOLUMAB 480 MG in NS (IVPB) CANCER CENTER 100 ML IV SCH; +NS IV 1000 ML (CANCER CTR) 1,000 ML ONE; +NS IV 1000 ML (CANCER CTR) IV SCH; -ONDANSETRON 4 MG/2 ML (SDV) Z0FRAN IVP PRN; -morphine PCA 100 MG/100 ML BAG IV PRN; -oxyCODONE/APAP 5/325MG (PERCOCET 5) TABLET PO PRN
[2019-09-27 10:18] LABS: BASOPHILS % (AUTO) 0 % (0-10); EOSINOPHILS % (AUTO) 0 % (0-10); HEMATOCRIT 37 % (40-54); HEMOGLOBIN 11.9 G/DL (13.3-17.7); LYMPHOCYTES # (AUTO) 0.8 X 10^3 (1.0-4.0); LYMPHOCYTES % (AUTO) 14 % (12-44); MEAN CORPUSCULAR HEMOGLOBIN 27 PG (25-34); MEAN CORPUSCULAR HGB CONC 32 G/DL (32-36); MEAN CORPUSCULAR VOLUME 85 FL (80-99); MEAN PLATELET VOLUME 8.8 FL (7.4-10.4); MONOCYTES # (AUTO) 0.8 X 10^3 (0.0-1.0); MONOCYTES % (AUTO) 13 % (0-12); NEUTROPHILS # (AUTO) 4.4 X 10^3 (1.8-7.8); NEUTROPHILS % (AUTO) 74 % (42-75); PLATELET COUNT 254 10^3/uL (130-400); RED CELL DISTRIBUTION WIDTH 14.9 % (10.0-14.5); WHITE BLOOD COUNT 5.9 10^3/uL (4.3-11.0)
[2019-09-27 10:41] LABS: ALANINE AMINOTRANSFERASE 7 U/L (0-55); ALBUMIN 4.1 GM/DL (3.2-4.5); ALKALINE PHOSPHATASE 204 U/L (40-136); BILIRUBIN,TOTAL 0.3 MG/DL (0.1-1.0); BUN/CREATININE RATIO 12; CALCIUM 8.9 MG/DL (8.5-10.1); CARBON DIOXIDE 28 MMOL/L (21-32); CHLORIDE 96 MMOL/L (98-107); CREATININE SERUM 0.67 MG/DL (0.60-1.30); GFR ESTIMATED > 60; GLUCOSE 98 MG/DL (70-105); POTASSIUM 4.3 MMOL/L (3.6-5.0); SODIUM 133 MMOL/L (135-145); TOTAL PROTEIN 7.1 GM/DL (6.4-8.2)
[2019-09-27] MEDS ORDERED: NS IV 1000 ML (CANCER CTR) 1,000 ML ONE (10:46)
== END 2019-10-13 | disposition home or self-care (01) ==
LOC: ONC 10:01
PROVIDERS: ATTEND Internal Medicine Hematology & Oncology
DX: Z51.11 Encounter for antineoplastic chemotherapy (principal); C34.12 Malignant neoplasm of upper lobe, left bronchus or lung; C79.51 Secondary malignant neoplasm of bone; J43.9 Emphysema, unspecified; G40.909 Epilepsy, unspecified, not intractable, without status epilepticus; E78.5 Hyperlipidemia, unspecified; Z87.891 Personal history of nicotine dependence; Z79.899 Other long term (current) drug therapy; Z92.21 Personal history of antineoplastic chemotherapy
CPT/HCPCS: 36591; 80053; 84443; 85025; 96413

== ENCOUNTER → 2019-10-13 | Outpatient (CLI) | payer MEDICARE, MEDICAID ==
[~2019-10-13] MED LIST changes: -NIVOLUMAB 480 MG in NS (IVPB) CANCER CENTER 100 ML IV SCH; -NS IV 1000 ML (CANCER CTR) 1,000 ML ONE; -NS IV 1000 ML (CANCER CTR) IV SCH
--- NOTE | 2019-10-13 11:09 | Diagnostic Imaging Report ---
Exam: CT left tibia and fibula without contrast. Date: October 13, 2019. Indication: 64-year-old male, fracture 4-5 months ago. Evaluation for healing. Comparison: Left tibia and fibular radiographs June 08, 2019. Technique: Axial CT images at the level of the left tibia and fibula were obtained without contrast. Coronal and sagittal reformats were obtained and provided. All CT scans use one or more of the following dose optimizing techniques: automated exposure control, MA and/or KvP adjustment based on a patient size and exam type, or iterative reconstruction. . Findings: There is a comminuted displaced fracture involving the distal tibial diaphysis. The primary distal fracture fragment is laterally displaced relative to the primary proximal fracture fragment by 1.6 cm measured on coronal image 22. There is medial of the lateral splaying of the primary fracture fragments measuring 1.1 cm measured on axial image 458. There is mild anterior to posterior displacement of the distal tibial fracture fragments. There is periosteal reaction present at the fracture sites; however, there is essentially no bony callus bridging of the comminuted displaced distal tibial fracture. There is a comminuted displaced fracture of the distal fibular diaphysis with posterior displacement of the primary distal fracture fragment relative to the primary proximal fracture fragment by 6 mm. There is periosteal reaction present adjacent to the fracture. There is estimated 15% or less bony callus bridging at the distal fibular fracture site. There is a nondisplaced fracture component of the distal fibular fracture extending near the level of the tibial plafond. There is bone demineralization present distal to the fracture sites. There is no aggressive cortical or otherwise noted bone destruction. Impression: 1. Comminuted displaced fractures of the distal tibia and fibula as described above. There is essentially no bony callus bridging of the tibial fracture and estimated 15% or less bony callus bridging of the distal fibular fracture. Dictated by: Dictated on workstation # [id number]
== END ==
LOC: RAD 09:58
PROVIDERS: ATTEND Neurological Surgery
DX: S82.252D Displaced comminuted fracture of shaft of left tibia, subsequent encounter for closed fracture with routine healing (principal)
CPT/HCPCS: 73700

== ENCOUNTER 2019-11-06 17:01 | Emergency (ER) | payer MEDICARE, MEDICAID ==
[~2019-11-06] VITALS: Ht 187.8 cm; Wt 78.9 kg
--- NOTE | 2019-11-06 17:12 | ED General ---
General Chief Complaint: Respiratory Problems Stated Complaint: N/V DIZZY Source of Information: Patient Exam Limitations: No Limitations History of Present Illness Date Seen by Provider: Nov 06, 2019 Time Seen by Provider: 17:10 Initial Comments TO Er by ems with c/o dizziness and nausea/vomiting. N/V gone upon arrival, dizziness persisists. Wears o2 @4l per NC. Chronic cough/dyspnea, no fever, no recent travel. Timing/Duration: 4-6 Hours Severity: Moderate Associated Systoms: No Headaches; Nausea/Vomiting Allergies and Home Medications Allergies Coded Allergies: aspirin (Unverified Allergy, Mild, DOES NOT WORK WELL W/ OTHER MEDS, 09/20/19) ibuprofen (Unverified Allergy, Mild, 09/20/19) hydrocodone (Verified Adverse Reaction, Intermediate, BECOMES TOO SEDATED, 09/22/19) Home Medications Acetaminophen 500 Mg Tablet, 1,000 MG PO Q6H PRN for PAIN-MILD (1-4), (Reported) Albuterol Sulfate 2.5 Mg/3 Ml Vial.neb, 2.5 MG NEB Q4H PRN for SHORTNESS OF BREATH, (Reported) Albuterol Sulfate 1 Puff Puff, 2 PUFF IH Q6H PRN for SHORTNESS OF BREATH, (Reported) Amlodipine Besylate 10 Mg Tablet, 10 MG PO DAILY Prescribed by: KALEN LUZ on 09/03/191948 Atorvastatin Calcium 20 Mg Tablet, 10 MG PO 0300, (Reported) TAKES OF A 20MG ONCE DAILY Carbamazepine 200 Mg Tablet, 200 MG PO 0300,0800,2300, (Reported) Carbamazepine 200 Mg Tablet, 400 MG PO 1500, (Reported) TAKES 2 (200 MG) TABLETS Fluticasone/Salmeterol 12 Gm Hfa.aer.ad, 1 PUFF IH BID, (Reported) Gabapentin 600 Mg Tablet, 600 MG PO 0800,1500, (Reported) Gabapentin 300 Mg Capsule, 300 MG PO 2300, (Reported) Lamotrigine 25 Mg Tablet, 25 MG PO 0300, 1500, (Reported) TAKES 25MG @ 0300 25MG + 100MG @1500 Lamotrigine 100 Mg Tablet, 100 MG PO 2300, (Reported) Meloxicam 15 Mg Tablet, 15 MG PO 1500, (Reported) Omeprazole 20 Mg Capsule.dr, 20 MG PO DAILY PRN for HEARTBURN, (Reported) Oxycodone HCl/Acetaminophen 1 Each Tablet, 1 EACH PO Q4H PRN for PAIN-SEVERE Prescribed by: FAVIAN BALL on 09/22/19 1209 Phenytoin Sodium Extended 100 Mg Capsule, 200 MG PO 1500, (Reported) TAKES 2 (100 MG) CAPSULES Phenytoin Sodium Extended 100 Mg Capsule, 100 MG PO 0800,2300, (Reported) TAKES 100MG @ 0800 & 2300 Ropinirole HCl 0.5 Mg Tablet, 0.5 MG PO 1500, (Reported) Tiotropium [place] 1 Inh Aerp, 1 CAP IH 1500, (Reported) Zinc Oxide 57 Gm Oint...g., 1 APPLIC TP EVERY 3 HOURS PRN for RASH, (Reported) Patient Home Medication List Home Medication List Reviewed: Yes Review of Systems Review of Systems Constitutional: see HPI, dizziness EENTM: see HPI Respiratory: see HPI Cardiovascular: see HPI Genitourinary: no symptoms reported Musculoskeletal: see HPI Skin: no symptoms reported Psychiatric/Neurological: See HPI Hematologic/Lymphatic: No Symptoms Reported Past Juusvjz-Tgkdfp-Kueqzl Hx Patient Social History Alcohol Use: Denies Use Recreational Drug Use: Yes (not current, 15 years ago-ETOH and PO drugs) Drug of Choice: HX OF RX DRUG ABUSE, CLAIMS NONE 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 Smoking Status: Former Smoker Type Used: Cigars, Cigarettes Former Smoker, Quit: Jan 29, 2017 2nd Hand Smoke Exposure: Yes Recent Hopitalizations: Yes (AUGUST 2019-SOB, INFECTION IN BLOOD ) Immunizations Up To Date Tetanus Booster (TDap): Less than 5yrs PED Vaccines UTD: Yes Date of Influenza Vaccine: Apr 21, 2018 Seasonal Allergies Seasonal Allergies: Yes Past Medical History Surgeries: Yes (NECK) Eye Surgery, Gallbladder Respiratory: Yes (O2 AT 4L/NC CONTINUOUSLY) Asthma, Pneumonia, Chronic Bronchitis, Sleep Apnea, COPD Currently Using CPAP: No Currently Using BIPAP: No Cardiac: Yes Heart Murmur, High Cholesterol, Hypertension, Valvular Heart Disease 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) Neuropathy, Seizure Disorder, Vertigo Reproductive Disorders: No Sexually Transmitted Disease: No HIV/AIDS: No Genitourinary: No Gastrointestinal: Yes Gastroesophageal Reflux Musculoskeletal: Yes (HX C-SPINE FX/NON-UNION OF ODONTOID; FALLS;POST POLIO-L SIDE WEAKNESS/CONTR) Arthritis, Fractures, Contracture Endocrine: No HEENT: Yes (DENTURES) Loss of Vision: Denies Hearing Impairment: Denies Cancer: Yes Bone, Lung Did You Recieve Any Treatments: Yes What Type of Treatment Did You: Chemotherapy Psychosocial: No Integumentary: No Blood Disorders: No Adverse Reaction/Blood Tranf: No Family Medical History Diabetes mellitus 19 MOTHER Hypercholesterolemia 19 FATHER Hypertension 19 FATHER Heart Disease Physical Exam Vital Signs Vital Signs - First Documented 11/06/19 17:01 Temp 37.3 Pulse 65 Resp 25 B/P (MAP) 191/91 (124) Pulse Ox 96 O2 Delivery Nasal Cannula O2 Flow Rate 4.00 Capillary Refill : Height, Weight, BMI Height: 6'0" Weight: 174lbs. 3.0oz. [id number]; 24.96 BMI Method:Stated General Appearance: No Apparent Distress, WD/WN, Chronically ill, Other (left arm flaccid, left leg in walking boot pointing 90degrees laterally) Eyes: Bilateral Eye Normal Inspection, Bilateral Eye PERRL, Bilateral Eye EOMI Respiratory: No Accessory Muscle Use, No Respiratory Distress, Decreased Breath Sounds Gastrointestinal: Non Tender, Soft Extremity: Normal Capillary Refill, Normal Inspection Neurologic/Psychiatric: Alert, Oriented x3 Skin: Normal Color, Warm/Dry Procedures/Interventions Date of ETT Placement: Mar 09, 2017 Time of ETT Placement: 1811 Suture Size: 5-0 Progress/Results/Core Measures Suspected Sepsis SIRS Temperature: Pulse: Respiratory Rate: Laboratory Tests 11/06/19 17:00: White Blood Count 5.8 Blood Pressure / Mean: Laboratory Tests 11/06/19 17:00: Creatinine 0.69, INR Comment 0.9, Platelet Count 267, Total Bilirubin 0.3 Results/Orders Lab Results Laboratory Tests Test 11/06/19 17:00 11/06/19 18:00 11/06/19 18:10 Range/Units White Blood Count 5.8 4.3-11.0 10^3/uL Red Blood Count 4.22 L 4.35-5.85 10^6/uL Hemoglobin 11.7 L 13.3-17.7 G/DL Hematocrit 35 L 40-54 % Mean Corpuscular Volume 83 80-99 FL Mean Corpuscular Hemoglobin 28 25-34 PG Mean Corpuscular Hemoglobin Concent 33 32-36 G/DL Red Cell Distribution Width 14.4 10.0-14.5 % Platelet Count 267 130-400 10^3/uL Mean Platelet Volume 8.9 7.4-10.4 FL Neutrophils (%) (Auto) 67 42-75 % Lymphocytes (%) (Auto) 17 12-44 % Monocytes (%) (Auto) 16 H 0-12 % Eosinophils (%) (Auto) 0 0-10 % Basophils (%) (Auto) 0 0-10 % Neutrophils # (Auto) 3.9 1.8-7.8 X 10^3 Lymphocytes # (Auto) 1.0 1.0-4.0 X 10^3 Monocytes # (Auto) 0.9 0.0-1.0 X 10^3 Eosinophils # (Auto) 0.0 0.0-0.3 10^3/uL Basophils # (Auto) 0.0 0.0-0.1 10^3/uL Prothrombin Time 13.0 12.2-14.7 SEC INR Comment 0.9 0.8-1.4 Activated Partial Thromboplast Time 39 H 24-35 SEC Sodium Level 126 L 135-145 MMOL/L Potassium Level 4.3 3.6-5.0 MMOL/L Chloride Level 89 L 98-107 MMOL/L Carbon Dioxide Level 28 21-32 MMOL/L Anion Gap 9 5-14 MMOL/L Blood Urea Nitrogen 7 7-18 MG/DL Creatinine 0.69 0.60-1.30 MG/DL Estimat Glomerular Filtration Rate > 60 BUN/Creatinine Ratio 10 Glucose Level 100 70-105 MG/DL Calcium Level 8.4 L 8.5-10.1 MG/DL Corrected Calcium 8.5 8.5-10.1 MG/DL Total Bilirubin 0.3 0.1-1.0 MG/DL Aspartate Amino Transf (AST/SGOT) 11 5-34 U/L Alanine Aminotransferase (ALT/SGPT) 8 0-55 U/L Alkaline Phosphatase 193 H 40-136 U/L Total Protein 7.1 6.4-8.2 GM/DL Albumin 3.9 3.2-4.5 GM/DL Urine Color YELLOW Urine Clarity CLEAR Urine pH 7.0 5-9 Urine Specific [place] 1.010 L 1.016-1.022 Urine Protein TRACE H NEGATIVE Urine Glucose (UA) NEGATIVE NEGATIVE Urine Ketones NEGATIVE NEGATIVE Urine Nitrite NEGATIVE NEGATIVE Urine Bilirubin NEGATIVE NEGATIVE Urine Urobilinogen 0.2 < = 1.0 MG/DL Urine Leukocyte Esterase NEGATIVE NEGATIVE Urine RBC (Auto) NEGATIVE NEGATIVE Urine RBC NONE /HPF Urine WBC NONE /HPF Urine Squamous Epithelial Cells 2-5 /HPF Urine Crystals NONE /LPF Urine Bacteria NEGATIVE /HPF Urine Casts NONE /LPF Urine Mucus NEGATIVE /LPF Urine Culture Indicated NO Blood Gas Puncture Site RIGHT RADIAL Blood Gas Patient Temperature 37.3 Arterial Blood pH 7.34 *L 7.37-7.43 Arterial Blood Partial Pressure CO2 58 H 35-45 MMHG Arterial Blood Partial Pressure O2 94 H 79-93 MMHG Arterial Blood HCO3 30 H 23-27 MMOL/L Arterial Blood Total CO2 31.7 H 21.0-31.0 MMOL/L Arterial Blood Oxygen Saturation 94 94-100 % Arterial Blood Base Excess 4.6 H -2.5-2.5 MMOL/L Johan Test POSITIVE Blood Gas Ventilator Setting NO Blood Gas Inspired Oxygen 4 L My Orders Orders - NOREEN CHÁVEZ ALLIGATOR SHEAR OPERATOR Cbc With Automated Diff (11/06/19 17:07) Comprehensive Metabolic Panel (11/06/19 17:07) Ua Culture If Indicated (11/06/19 17:07) Ct Head Wo (11/06/19 17:07) Chest 1 View, Ap/Pa Only (11/06/19 17:07) Protime With Inr (11/06/19 17:07) Partial Thromboplastin Time (11/06/19 17:07) Promethazine Injection (Phenergan Injec (11/06/19 17:15) Shoulder, Right, 3 Views (11/06/19 17:37) Ns Iv 500 Ml (Sodium Chloride 0.9%) (11/06/19 18:00) Ropinirole Tablet (Requip Tablet) (11/06/19 18:15) Arterial Blood Gas (11/06/19 18:10) Medications Given in ED Current Medications Medications Dose Ordered Sig/Porfirio Route Start Time Stop Time Status Last Admin Dose Admin Promethazine HCl 12.5 mg ONCE ONCE IVP 11/06/19 17:15 11/06/19 17:16 DC 11/06/19 17:21 12.5 MG Ropinirole HCl 0.5 mg ONCE ONCE PO 11/06/19 18:15 11/06/19 18:16 DC 11/06/19 18:20 0.5 MG Vital Signs/I&O 11/06/19 17:01 Temp 37.3 Pulse 65 Resp 25 B/P (MAP) 191/91 (124) Pulse Ox 96 O2 Delivery Nasal Cannula O2 Flow Rate 4.00 Capillary Refill : Departure Communication (Admissions) 1843-Spoke with Dr Ndiaye, agrees with plan to use steroids and oral antibiotics. Pts would like him admitted as hes weak and she feels like he will get worse at home. Certainly possible, but he can return for worsening. He still needs to consider fdc placement/hospice as discussed on multiple recent visits. His dizziness is now gone and nausea gone. Impression Primary Impression: Dizziness Additional Impression: Chronic respiratory failure Qualified Codes: J96.10 - Chronic respiratory failure, unspecified whether with hypoxia or hypercapnia Disposition: HOME, SELF-CARE Condition: Improved Departure-Patient Inst. Decision time for Depature: 18:45 Referrals: AMANDEEP GENAO DO (PCP/Family) Primary Care Physician Patient Instructions: VERTIGO Add. Discharge Instructions: 1. Return to ER for any concerns 2. Follow up with dr genao next week. Take steroids and antibiotics as directed All discharge instructions reviewed with patient and/or family. Voiced understanding. Scripts Prednisone (Prednisone) 20 Mg Tab 40 MG PO DAILY, #8 TAB 0 Refills Prov: NOREEN CHÁVEZ APRN 11/06/19 Cefuroxime Axetil (Cefuroxime) 250 Mg Tablet 250 MG PO BID, #10 TAB Prov: NOREEN CHÁVEZ APRN 11/06/19 Copy Copies To 1: AMANDEEP GENAO PETER J APRN Nov 06, 2019 17:12
[2019-11-06 17:15] LABS: BASOPHILS % (AUTO) 0 % (0-10); EOSINOPHILS % (AUTO) 0 % (0-10); HEMATOCRIT 35 % (40-54); HEMOGLOBIN 11.7 G/DL (13.3-17.7); LYMPHOCYTES % (AUTO) 17 % (12-44); MEAN CORPUSCULAR HEMOGLOBIN 28 PG (25-34); MEAN CORPUSCULAR HGB CONC 33 G/DL (32-36); MEAN CORPUSCULAR VOLUME 83 FL (80-99); MEAN PLATELET VOLUME 8.9 FL (7.4-10.4); MONOCYTES # (AUTO) 0.9 X 10^3 (0.0-1.0); MONOCYTES % (AUTO) 16 % (0-12); NEUTROPHILS # (AUTO) 3.9 X 10^3 (1.8-7.8); NEUTROPHILS % (AUTO) 67 % (42-75); PLATELET COUNT 267 10^3/uL (130-400); RED CELL DISTRIBUTION WIDTH 14.4 % (10.0-14.5); WHITE BLOOD COUNT 5.8 10^3/uL (4.3-11.0)
[2019-11-06] MEDS ORDERED: PROMETHAZINE INJ 25 MG/ML (PHENERGAN) AMP IVP ONE (17:15)
[2019-11-06 17:26] LABS: INR 0.9 (0.8-1.4)
[2019-11-06 17:35] LABS: ALANINE AMINOTRANSFERASE 8 U/L (0-55); ALBUMIN 3.9 GM/DL (3.2-4.5); ALKALINE PHOSPHATASE 193 U/L (40-136); BILIRUBIN,TOTAL 0.3 MG/DL (0.1-1.0); BUN/CREATININE RATIO 10; CALCIUM 8.4 MG/DL (8.5-10.1); CARBON DIOXIDE 28 MMOL/L (21-32); CHLORIDE 89 MMOL/L (98-107); CREATININE SERUM 0.69 MG/DL (0.60-1.30); GFR ESTIMATED > 60; GLUCOSE 100 MG/DL (70-105); POTASSIUM 4.3 MMOL/L (3.6-5.0); SODIUM 126 MMOL/L (135-145); TOTAL PROTEIN 7.1 GM/DL (6.4-8.2)
--- NOTE | 2019-11-06 17:43 | Diagnostic Imaging Report ---
INDICATION: Dizziness, shortness of breath, Port-A-Cath. COMPARISON: 09/05/2019. EXAMINATION: Single view of the chest was obtained. FINDINGS: Chronic scarring and interstitial changes in both bases. There is no acute infiltrate, effusion or pneumothorax. The heart remains prominent. There is no pulmonary edema. Port-A-Cath is stable. Osseous structures are age-appropriate. IMPRESSION: No acute cardiopulmonary findings. No interval change from prior exam. Dictated by: Dictated on workstation # [id number]
--- NOTE | 2019-11-06 17:52 | Diagnostic Imaging Report ---
PROCEDURE: CT head without contrast. TECHNIQUE: Multiple contiguous axial images were obtained through the brain without the use of intravenous contrast. Auto Exposure Controls were utilized during the CT exam to meet ALARA standards for radiation dose reduction. INDICATION: Fall, head injury. COMPARISON: 09/03/2019. FINDINGS: There is asymmetric but stable enlargement of the right lateral ventricle. There is no focus of acute ischemia or hemorrhage. There is no midline shift or mass effect. No acute extra-axial fluid collection or mass is seen. There is no skull fracture. Paranasal sinuses are clear. There is a nonspecific effusion in the left mastoid air cell. Right mastoid is unremarkable. IMPRESSION: No acute intracranial abnormality. Dictated by: Dictated on workstation # [id number]
[2019-11-06] MEDS ORDERED: NS IV 500 ML 500 ML IV SCH (18:00)
[2019-11-06] MEDS ORDERED: rOPINIRole 0.25 MG (REQUIP) TAB PO ONE (18:15)
[2019-11-06 18:23] LABS: BILIRUBIN,URINE NEGATIVE (NEGATIVE); CLARITY,URINE CLEAR; COLOR,URINE YELLOW; GLUCOSE, URINE (UA) NEGATIVE (NEGATIVE); KETONES,URINE NEGATIVE (NEGATIVE); LEUKOCYTE ESTERASE ,URINE NEGATIVE (NEGATIVE); NITRITE,URINE NEGATIVE (NEGATIVE); PROTEIN,URINE TRACE (NEGATIVE)
[2019-11-06 18:24] LABS: ABG BASE EXCESS 4.6 MMOL/L (-2.5-2.5); ABG OXYGEN SATURATION 94 % (94-100); ABG PCO2 58 MMHG (35-45); ABG PO2 94 MMHG (79-93); ABG TCO2 31.7 MMOL/L (21.0-31.0)
--- NOTE | 2019-11-06 18:24 | Diagnostic Imaging Report ---
INDICATION: Right shoulder pain. COMPARISON: None. FINDINGS: Three views of the right shoulder demonstrate severe degenerative changes of the glenohumeral joint. AC joint is normal. No obvious osseous lesion is seen. There is no fracture or dislocation. IMPRESSION: Severe degenerative joint disease. Dictated by: Dictated on workstation # [id number]
[2019-11-06 18:25] LABS: ABG PH 7.34 (7.37-7.43); ALLENS TEST POSITIVE; INSPIRED O2 4 L; PATIENT TEMP 37.3; VENTILATOR NO
[2019-11-06 18:32] LABS: BACTERIA,URINE NEGATIVE /HPF
[2019-11-06] MEDS ORDERED: CEFU250T80 PO (18:46)
[2019-11-06] MEDS ORDERED: PRD20T PO (18:46)
[2019-11-06] MEDS ORDERED: RT-ALBUTEROL/IPRATROPIUM 3 ML (DUONEB) VIAL INH ONE (19:00)
[2019-11-06] MEDS ORDERED: methylPREDNISolone 125 MG (Solu-MEDROL) VIAL IVP ONE (19:00)
[2019-11-06] MEDS ORDERED: cefTRIAXone FOR IV USE 1,000 MG in WATER (STERILE) FOR INJECTION 10 ML IV ONE (19:00)
[2019-11-06] MEDS ORDERED: HEParin (CENTRAL IV FLUSH) 500 UNIT/5 ML SYR ONE (19:27)
[2019-11-06 19:40] VITALS: BP 162/58
== END 2019-11-06 19:43 | disposition home or self-care (01) ==
LOC: EDUNIT# 17:01 → ER 17:02
DX: J96.10 Chronic respiratory failure, unspecified whether with hypoxia or hypercapnia (principal); R42 Dizziness and giddiness; J44.9 Chronic obstructive pulmonary disease, unspecified; I10 Essential (primary) hypertension; E78.00 Pure hypercholesterolemia, unspecified; G40.909 Epilepsy, unspecified, not intractable, without status epilepticus; G62.9 Polyneuropathy, unspecified; K21.9 Gastro-esophageal reflux disease without esophagitis; Z88.6 Allergy status to analgesic agent; Z85.830 Personal history of malignant neoplasm of bone; Z85.118 Personal history of other malignant neoplasm of bronchus and lung; Z88.5 Allergy status to narcotic agent; Z79.51 Long term (current) use of inhaled steroids; Z87.891 Personal history of nicotine dependence
CPT/HCPCS: 36415; 70450; 71045; 73030; 80053; 81000; 82805; 85025; 85610; 85730; 94640

== ENCOUNTER 2019-11-29 19:41 | Emergency (ER) | payer MEDICARE, MEDICAID ==
[~2019-11-29] VITALS: Ht 180 cm; Wt 91.0 kg
[~2019-11-29 19:41] MED LIST changes: +CEFU250T80 PO
[2019-11-29] MEDS ORDERED: TRANEXAMIC ACID 100 MG/ML 10 ML INJECTION IV ONE ×2 (19:49→20:00)
[2019-11-29 20:05] LABS: BASOPHILS % (AUTO) 0 % (0-10); EOSINOPHILS % (AUTO) 0 % (0-10); HEMATOCRIT 28 % (40-54); HEMOGLOBIN 8.9 G/DL (13.3-17.7); LYMPHOCYTES # (AUTO) 0.8 X 10^3 (1.0-4.0); LYMPHOCYTES % (AUTO) 12 % (12-44); MEAN CORPUSCULAR HEMOGLOBIN 28 PG (25-34); MEAN CORPUSCULAR HGB CONC 32 G/DL (32-36); MEAN CORPUSCULAR VOLUME 87 FL (80-99); MEAN PLATELET VOLUME 8.4 FL (7.4-10.4); MONOCYTES # (AUTO) 0.8 X 10^3 (0.0-1.0); MONOCYTES % (AUTO) 12 % (0-12); NEUTROPHILS # (AUTO) 4.9 X 10^3 (1.8-7.8); NEUTROPHILS % (AUTO) 76 % (42-75); PLATELET COUNT 358 10^3/uL (130-400); RED CELL DISTRIBUTION WIDTH 14.3 % (10.0-14.5); WHITE BLOOD COUNT 6.4 10^3/uL (4.3-11.0)
--- NOTE | 2019-11-29 20:12 | ED EENT ---
History of Present Illness General Chief Complaint: Nasal Problems Stated Complaint: BLOODY NOSE Source: patient, old records History of Present Illness Date Seen by Provider: Nov 29, 2019 Time Seen by Provider: 19:44 Initial Comments PT ARRIVES VIA EMS FROM HOME C/O NOSEBLEED FROM RIGHT NARE FOR AN HOUR STATES HE PICKED A "BOOGER" OR A SCAB FROM HIS NOSE AND IT STARTED BLEEDING PT HAS BEEN ON XARELTO FOR 3-4 DAYS, AFTER HAVING LEFT LOWER LEG SURGERY 3-4 DAYS AGO, BY DR. Keaton BENITES AT [facility] IN [place] PT HAS COPD AND LUNG CANCER AND IS ON HOME O2 AT 4L/NC CONTINUOUSLY PT HAS NOT HAD PRIOR EPISODES OF NOSEBLEEDS, AND HAS NOT BEEN ON BLOOD THINNERS BEFORE THIS. NO PAIN NO FEVER NO NASAL CONGESTION OR RECENT ILLNESS. PCP: DR. GENAO ORTHOPEDIC SURGERY: DR Keaton BENITES FOR LEFT LOWER LEG SURGERY. DR. PRESCOTT FOR C- SPINE SURGERY Allergies and Home Medications Allergies Coded Allergies: aspirin (Unverified Allergy, Mild, DOES NOT WORK WELL W/ OTHER MEDS, 09/20/19) ibuprofen (Unverified Allergy, Mild, 09/20/19) hydrocodone (Verified Adverse Reaction, Intermediate, BECOMES TOO SEDATED, 09/22/19) Home Medications Acetaminophen 500 Mg Tablet, 1,000 MG PO Q6H PRN for PAIN-MILD (1-4), (Reported) Albuterol Sulfate 2.5 Mg/3 Ml Vial.neb, 2.5 MG NEB Q4H PRN for SHORTNESS OF BREATH, (Reported) Albuterol Sulfate 1 Puff Puff, 2 PUFF IH Q6H PRN for SHORTNESS OF BREATH, (Reported) Amlodipine Besylate 10 Mg Tablet, 10 MG PO DAILY Prescribed by: KALEN LUZ on 09/03/191948 Atorvastatin Calcium 20 Mg Tablet, 10 MG PO 0300, (Reported) TAKES OF A 20MG ONCE DAILY Carbamazepine 200 Mg Tablet, 200 MG PO 0300,0800,2300, (Reported) Carbamazepine 200 Mg Tablet, 400 MG PO 1500, (Reported) TAKES 2 (200 MG) TABLETS Cefuroxime Axetil 250 Mg Tablet, 250 MG PO BID Prescribed by: NOREEN CHÁVEZ on 11/06/191845 Cefuroxime Axetil 500 Mg Tablet, 500 MG PO BID Prescribed by: CHUNG DOTY on 11/29/192036 Fluticasone/Salmeterol 12 Gm Hfa.aer.ad, 1 PUFF IH BID, (Reported) Gabapentin 600 Mg Tablet, 600 MG PO 0800,1500, (Reported) Gabapentin 300 Mg Capsule, 300 MG PO 2300, (Reported) Lamotrigine 25 Mg Tablet, 25 MG PO 0300, 1500, (Reported) TAKES 25MG @ 0300 25MG + 100MG @1500 Lamotrigine 100 Mg Tablet, 100 MG PO 2300, (Reported) Meloxicam 15 Mg Tablet, 15 MG PO 1500, (Reported) Omeprazole 20 Mg Capsule.dr, 20 MG PO DAILY PRN for HEARTBURN, (Reported) Oxycodone HCl/Acetaminophen 1 Each Tablet, 1 EACH PO Q4H PRN for PAIN-SEVERE Prescribed by: FAVIAN BALL on 09/22/19 1209 Phenytoin Sodium Extended 100 Mg Capsule, 200 MG PO 1500, (Reported) TAKES 2 (100 MG) CAPSULES Phenytoin Sodium Extended 100 Mg Capsule, 100 MG PO 0800,2300, (Reported) TAKES 100MG @ 0800 & 2300 Prednisone 20 Mg Tab, 40 MG PO DAILY Prescribed by: NOREEN CHÁVEZ on 11/06/19 1846 Ropinirole HCl 0.5 Mg Tablet, 0.5 MG PO 1500, (Reported) Tiotropium [place] 1 Inh Aerp, 1 CAP IH 1500, (Reported) Zinc Oxide 57 Gm Oint...g., 1 APPLIC TP EVERY 3 HOURS PRN for RASH, (Reported) Patient Home Medication List Home Medication List Reviewed: Yes Review of Systems Review of Systems Constitutional: no symptoms reported; No dizziness, No fever Nose: see HPI, epistaxis; denies pain Mouth: no symptoms reported Throat: no symptoms reported Respiratory: see HPI (NO CHANGE IN CHRONIC DYSPNEA) Musculoskeletal: see HPI Skin: no symptoms reported Neurological: No Symptoms Reported Past Whbulbi-Bqwyon-Gqlgzp Hx Past Med/Social Hx: Reviewed and Corrections made Patient Social History Alcohol Use: Past History Recreational Drug Use: Yes (not current, 15 years ago-ETOH and PO drugs) Drug of Choice: HX OF RX DRUG ABUSE, CLAIMS NONE 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 Smoking Status: Former Smoker Type Used: Cigars, Cigarettes Former Smoker, Quit: Jan 29, 2017 2nd Hand Smoke Exposure: Yes Recent Hopitalizations: Yes (AUGUST 2019-SOB, INFECTION IN BLOOD ) Immunizations Up To Date Tetanus Booster (TDap): Less than 5yrs PED Vaccines UTD: Yes Date of Influenza Vaccine: Apr 21, 2018 Seasonal Allergies Seasonal Allergies: Yes Past Medical History Surgeries: Yes (C-SPINE SURGERY FOR FX; LEFT LOWER LEG SURGERY 10/2019) Eye Surgery, Gallbladder, Orthopedic Respiratory: Yes (O2 AT 4L/NC CONTINUOUSLY) Asthma, Pneumonia, Chronic Bronchitis, Sleep Apnea, COPD Currently Using CPAP: No Currently Using BIPAP: No Cardiac: Yes Heart Murmur, High Cholesterol, Hypertension, Valvular Heart Disease 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) Neuropathy, Seizure Disorder, Vertigo Reproductive Disorders: No Sexually Transmitted Disease: No HIV/AIDS: No Genitourinary: No Gastrointestinal: Yes Gastroesophageal Reflux Musculoskeletal: Yes (HX C-SPINE FX/NON-UNION OF ODONTOID; FALLS;POST POLIO-L SIDE WEAKNESS/CONTR) Arthritis, Fractures, Contracture Endocrine: No HEENT: Yes (DENTURES) Loss of Vision: Denies Hearing Impairment: Denies Cancer: Yes Bone, Lung Did You Recieve Any Treatments: Yes What Type of Treatment Did You: Chemotherapy Psychosocial: No Integumentary: No Blood Disorders: No Adverse Reaction/Blood Tranf: No Family Medical History Diabetes mellitus 19 MOTHER Hypercholesterolemia 19 FATHER Hypertension 19 FATHER Heart Disease Physical Exam Vital Signs Vital Signs - First Documented 11/29/19 20:00 Temp 36.9 Pulse 79 Resp 18 B/P (MAP) 147/80 (102) Pulse Ox 96 O2 Delivery OxyMask O2 Flow Rate 4.00 Height, Weight, BMI Height: 6'0" Weight: 174lbs. 3.0oz. 79.462678rk; 22.00 BMI Method:Stated General Appearance: WD/WN, no apparent distress Nose: active bleeding (FROM RIGHT NARE--APPEARS TO BE BLEEDING FROM ANTERIOR NASAL SEPTUM. 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, alert, normal mood/affect, oriented x 3, other (CONTRACTURES LEFT ARM/HAND; LEFT LOWER LEG WITH DRESSINGS IN PLACE AND WEARING A WALKING BOOT) Skin: normal color, warm/dry Procedures/Interventions Date of ETT Placement: Mar 09, 2017 Time of ETT Placement: 1811 Suture Size: 5-0 Nasal : Nasal Location: Right Clots Cleared from Nasal: Patient Blowing Inspection with: Otoscope Nasal Procedures: Rapid Rhino (PLUS TXA) Progress/Results/Core Measures Results/Orders Lab Results Laboratory Tests Test 11/29/19 19:55 Range/Units White Blood Count 6.4 4.3-11.0 10^3/uL Red Blood Count 3.17 L 4.35-5.85 10^6/uL Hemoglobin 8.9 L 13.3-17.7 G/DL Hematocrit 28 L 40-54 % Mean Corpuscular Volume 87 80-99 FL Mean Corpuscular Hemoglobin 28 25-34 PG Mean Corpuscular Hemoglobin Concent 32 32-36 G/DL Red Cell Distribution Width 14.3 10.0-14.5 % Platelet Count 358 130-400 10^3/uL Mean Platelet Volume 8.4 7.4-10.4 FL Neutrophils (%) (Auto) 76 H 42-75 % Lymphocytes (%) (Auto) 12 12-44 % Monocytes (%) (Auto) 12 0-12 % Eosinophils (%) (Auto) 0 0-10 % Basophils (%) (Auto) 0 0-10 % Neutrophils # (Auto) 4.9 1.8-7.8 X 10^3 Lymphocytes # (Auto) 0.8 L 1.0-4.0 X 10^3 Monocytes # (Auto) 0.8 0.0-1.0 X 10^3 Eosinophils # (Auto) 0.0 0.0-0.3 10^3/uL Basophils # (Auto) 0.0 0.0-0.1 10^3/uL Prothrombin Time 16.0 H 12.2-14.7 SEC INR Comment 1.2 0.8-1.4 Activated Partial Thromboplast Time 52 H 24-35 SEC My Orders Orders - CHUNG DOTY DO Cbc With Automated Diff (11/29/19 19:44) Protime With Inr (11/29/19 19:44) Partial Thromboplastin Time (11/29/19 19:44) Tranexamic Acid Injection (Cyklokapron I (11/29/19 20:00) Tranexamic Acid Injection (Cyklokapron I (11/29/19 19:49) Cefdinir Capsule (Omnicef Capsule) (11/29/19 20:45) Medications Given in ED Current Medications Medications Dose Ordered Sig/Porfirio Route Start Time Stop Time Status Last Admin Dose Admin Tranexamic Acid 10 MG/KG ONCE ONCE IV 11/29/19 20:00 11/29/19 20:01 DC 11/29/19 20:06 1,000 MG Vital Signs/I&O 11/29/19 20:00 Temp 36.9 Pulse 79 Resp 18 B/P (MAP) 147/80 (102) Pulse Ox 96 O2 Delivery OxyMask O2 Flow Rate 4.00 Progress Progress Note : Progress Note RAPID RHINO AND TXA INSTILLED IN RIGHT NARE PT OBSERVED IN ER FOR OVER AN HOUR AFTER NOSE PACKED/TXA INSTILLED NO FURTHER BLEEDING FROM NOSE OR IN POSTERIOR PHARYNX Departure Impression Primary Impression: Right-sided epistaxis Additional Impressions: XARELTO THERAPY Postoperative anemia S/P LEFT LOWER LEG SURGERY COPD OXYGEN DEPENDENT Disposition: HOME, SELF-CARE Condition: Improved Departure-Patient Inst. Referrals: SHARON AARON MD, RICHARD A DO (PCP/Family) Primary Care Physician AARON BENITES DO Patient Instructions: Nosebleeds (DC) Add. Discharge Instructions: LEAVE NASAL PACKING IN PLACE DO NOT BLOW OR RUB OR PICK AT NOSE WEAR OXI MASK IN PLACE OF NASAL CANULA WHILE YOU HAVE PACKING IN YOUR NOSE HOLD TONIGHT'S DOSE OF XARELTO FOLLOW UP WITH DR. GENAO IN 2 DAYS FOR RECHECK OF ANEMIA FOLLOW UP WITH DR. AARON, ENT, FOR FOLLOW UP OF NOSEBLEED FOLLOW UP WITH DR. BENITES SCHEDULED FOR POST OP EXAM. All discharge instructions reviewed with patient and/or family. Voiced understanding. Scripts Cefuroxime Axetil (Cefuroxime) 500 Mg Tablet 500 MG PO BID, #20 TAB Prov: CHUNG DOTY DO 11/29/19 CHUNG DOTY DO Nov 29, 2019 20:12
[2019-11-29 20:17] LABS: INR 1.2 (0.8-1.4)
[2019-11-29] MEDS ORDERED: CEFU500T63 PO (20:37)
[2019-11-29] MEDS ORDERED: CEFDINIR 300 MG (OMNICEF) CAP PO ONE (20:45)
[2019-11-29 21:25] VITALS: BP 152/93
== END 2019-11-29 21:20 | disposition home or self-care (01) ==
LOC: EDUNIT# 19:41 → ER 19:43
DX: R04.0 Epistaxis (principal); D62 Acute posthemorrhagic anemia; J44.9 Chronic obstructive pulmonary disease, unspecified; K21.9 Gastro-esophageal reflux disease without esophagitis; E78.00 Pure hypercholesterolemia, unspecified; I10 Essential (primary) hypertension; G40.909 Epilepsy, unspecified, not intractable, without status epilepticus; Z99.81 Dependence on supplemental oxygen; Z87.891 Personal history of nicotine dependence; Z88.5 Allergy status to narcotic agent; Z88.8 Allergy status to other drugs, medicaments and biological substances; Z79.52 Long term (current) use of systemic steroids; Z79.01 Long term (current) use of anticoagulants; Z98.890 Other specified postprocedural states; Z85.830 Personal history of malignant neoplasm of bone; Z85.118 Personal history of other malignant neoplasm of bronchus and lung; Z82.49 Family history of ischemic heart disease and other diseases of the circulatory system
CPT/HCPCS: 36415; 85025; 85610; 85730

== ENCOUNTER → 2019-12-01 | Outpatient (CLI) | payer MEDICARE, MEDICAID ==
[~2019-12-01] MED LIST changes: +CEFU500T63 PO
--- NOTE | 2019-12-01 19:05 | Diagnostic Imaging Report ---
INDICATION: Left shoulder pain COMPARISON: Imaging of the right shoulder dated 11/06/2019 TECHNIQUE: 3 radiographs of the left shoulder dated 12/01/2019. FINDINGS: The acromioclavicular joint is unremarkable. No acute fracture or dislocation. Severe glenohumeral joint space narrowing is present with sclerosis of the articular surfaces and underlying subchondral cyst formation. Mild osteophyte formation is noted associated with the inferior aspect of the humeral head. The visualized left lung is clear. IMPRESSION: No acute osseous abnormality with moderate degenerative changes of the glenohumeral joint. Dictated on workstation # [id number]
== END ==
LOC: ONC 15:37
PROVIDERS: ATTEND Nurse Practitioner Adult Health
DX: M19.012 Primary osteoarthritis, left shoulder (principal)
CPT/HCPCS: 73030

== ENCOUNTER 2019-12-24 01:41 | Emergency (ER) | payer MEDICARE, MEDICAID ==
[~2019-12-24] VITALS: Ht 180 cm; Wt 91.0 kg
[~2019-12-24 01:41] MED LIST changes: -PANT40TA3 PO; +PANT40TA52 PO
--- NOTE | 2019-12-24 01:57 | ED Neurological Problem ---
General Chief Complaint: Neuro-Stroke Like Symptoms Stated Complaint: SLURRED SPEECH Source: patient Exam Limitations: no limitations History of Present Illness Date Seen by Provider: Dec 24, 2019 Time Seen by Provider: 01:40 Initial Comments Patient presents ER by EMS from home with chief complaint of slurred speech starting at 1:15 this morning approximately 30 minutes prior to arrival. He was awake when this started and witnessed by his . He's had a cough and has a long history of chronic respiratory failure on oxygen 4 L at baseline. Blood pressure 170/90 per EMS. Patient denies history of stroke and claims he does not think he's having a stroke he thinks he has pneumonia. The patient does have a history of polio. Patient has a left leg fracture repaired by Dr. Hickman for approximately one month ago. Allergies and Home Medications Allergies Coded Allergies: aspirin (Unverified Allergy, Mild, DOES NOT WORK WELL W/ OTHER MEDS, 09/20/19) ibuprofen (Unverified Allergy, Mild, 09/20/19) hydrocodone (Verified Adverse Reaction, Intermediate, BECOMES TOO SEDATED, 09/22/19) Home Medications Acetaminophen 500 Mg Tablet, 1,000 MG PO Q6H PRN for PAIN-MILD (1-4), (Reported) Albuterol Sulfate 2.5 Mg/3 Ml Vial.neb, 2.5 MG NEB Q4H PRN for SHORTNESS OF BREATH, (Reported) Albuterol Sulfate 1 Puff Puff, 2 PUFF IH Q6H PRN for SHORTNESS OF BREATH, (Reported) Amlodipine Besylate 10 Mg Tablet, 10 MG PO DAILY Prescribed by: KALEN LUZ on 09/03/191948 Atorvastatin Calcium 20 Mg Tablet, 10 MG PO 0300, (Reported) TAKES OF A 20MG ONCE DAILY Carbamazepine 200 Mg Tablet, 200 MG PO 0300,0800,2300, (Reported) Carbamazepine 200 Mg Tablet, 400 MG PO 1500, (Reported) TAKES 2 (200 MG) TABLETS Cefuroxime Axetil 250 Mg Tablet, 250 MG PO BID Prescribed by: NOREEN CHÁVEZ on 11/06/191845 Cefuroxime Axetil 500 Mg Tablet, 500 MG PO BID Prescribed by: CHUNG DOTY on 11/29/192036 Fluticasone/Salmeterol 12 Gm Hfa.aer.ad, 1 PUFF IH BID, (Reported) Gabapentin 600 Mg Tablet, 600 MG PO 0800,1500, (Reported) Gabapentin 300 Mg Capsule, 300 MG PO 2300, (Reported) Lamotrigine 25 Mg Tablet, 25 MG PO 0300, 1500, (Reported) TAKES 25MG @ 0300 25MG + 100MG @1500 Lamotrigine 100 Mg Tablet, 100 MG PO 2300, (Reported) Meloxicam 15 Mg Tablet, 15 MG PO 1500, (Reported) Omeprazole 20 Mg Capsule.dr, 20 MG PO DAILY PRN for HEARTBURN, (Reported) Oxycodone HCl/Acetaminophen 1 Each Tablet, 1 EACH PO Q4H PRN for PAIN-SEVERE Prescribed by: FAVIAN BALL on 09/22/19 1209 Phenytoin Sodium Extended 100 Mg Capsule, 200 MG PO 1500, (Reported) TAKES 2 (100 MG) CAPSULES Phenytoin Sodium Extended 100 Mg Capsule, 100 MG PO 0800,2300, (Reported) TAKES 100MG @ 0800 & 2300 Prednisone 20 Mg Tab, 40 MG PO DAILY Prescribed by: NOREEN CHÁVEZ on 11/06/19 1846 Ropinirole HCl 0.5 Mg Tablet, 0.5 MG PO 1500, (Reported) Tiotropium [place] 1 Inh Aerp, 1 CAP IH 1500, (Reported) Zinc Oxide 57 Gm Oint...g., 1 APPLIC TP EVERY 3 HOURS PRN for RASH, (Reported) Patient Home Medication List Home Medication List Reviewed: Yes Review of Systems Review of Systems Constitutional: No chills, No diaphoresis Eyes: Denies Blindness, Denies Blurred Vision Ears, Nose, Mouth, Throat: denies ear pain, denies ear discharge Respiratory: No cough, No hemoptysis, No short of breath Cardiovascular: No chest pain, No edema Gastrointestinal: No abdominal pain, No nausea Genitourinary: No dysuria, No pain Musculoskeletal: see HPI; No back pain, No joint pain All Other Systems Reviewed Negative Unless Noted: Yes Past Lxryrvb-Mptjhw-Zkeuud Hx Patient Social History Alcohol Use: Denies Use Recreational Drug Use: No Drug of Choice: HX OF RX DRUG ABUSE, CLAIMS NONE 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 Smoking Status: Former Smoker Type Used: Cigars, Cigarettes Former Smoker, Quit: Jan 29, 2017 2nd Hand Smoke Exposure: Yes Recent Hopitalizations: Yes (AUGUST 2019-SOB, INFECTION IN BLOOD ) Immunizations Up To Date Tetanus Booster (TDap): Less than 5yrs PED Vaccines UTD: Yes Date of Influenza Vaccine: Apr 21, 2018 Seasonal Allergies Seasonal Allergies: Yes Past Medical History Surgeries: Yes (C-SPINE SURGERY FOR FX; LEFT LOWER LEG SURGERY 10/2019) Eye Surgery, Gallbladder, Orthopedic Respiratory: Yes (O2 AT 4L/NC CONTINUOUSLY) Asthma, Pneumonia, Chronic Bronchitis, Sleep Apnea, COPD Currently Using CPAP: No Currently Using BIPAP: No Cardiac: Yes Heart Murmur, High Cholesterol, Hypertension, Valvular Heart Disease 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) Neuropathy, Seizure Disorder, Vertigo Reproductive Disorders: No Sexually Transmitted Disease: No HIV/AIDS: No Genitourinary: No Gastrointestinal: Yes Gastroesophageal Reflux Musculoskeletal: Yes (HX C-SPINE FX/NON-UNION OF ODONTOID; FALLS;POST POLIO-L SIDE WEAKNESS/CONTR) Arthritis, Fractures, Contracture Endocrine: No HEENT: Yes (DENTURES) Loss of Vision: Denies Hearing Impairment: Denies Cancer: Yes Bone, Lung Did You Recieve Any Treatments: Yes What Type of Treatment Did You: Chemotherapy Psychosocial: No Integumentary: No Blood Disorders: No Adverse Reaction/Blood Tranf: No Family Medical History Diabetes mellitus 19 MOTHER Hypercholesterolemia 19 FATHER Hypertension 19 FATHER Heart Disease Physical Exam Vital Signs Vital Signs - First Documented 12/24/19 01:41 Temp 37.1 Pulse 70 Resp 18 B/P (MAP) 185/102 (129) Pulse Ox 99 O2 Delivery Nasal Cannula O2 Flow Rate 4.00 Capillary Refill : Height, Weight, BMI Height: 6'0" Weight: 174lbs. 3.0oz. 79.199588yp; 28.00 BMI Method:Stated General Appearance: other (disheveled, agitated) HEENT: PERRL/EOMI; No pharynx normal (oropharynx mucosa is dry) Neck: full range of motion, supple, normal inspection Respiratory: crackles (bilateral), other (oxygen saturations 97% on 4 L by nasal cannula) Cardiovascular: normal peripheral pulses, regular rate, rhythm, no edema Peripheral Pulses: 2+ Radial Pulses (R), 2+ Radial Pulses (L) Extremities: normal capillary refill, other (walking boot left lower extremity) Neurologic/Psychiatric: alert, other (agitated, jerky movements with left arm mild paresis) Crainal Nerves: normal hearing, PERRL, abnormal speech (slurred speech), facial droop (left face) Stroke Onset of Symptoms Date of Onset of Symptoms: Dec 24, 2019 Time of Symptom Onset: 01:15 Onset of Symptoms: Yes NIH Stroke Scale Assessment Select: Initial Level of Consciousness: 0=Alert (0), Level of Consciousness- Questions: 0=Answers both month/age (0), LOC Commands: 0=Performs both tasks (0), Gaze: Normal (0), Visual Hernandez: 0=No visual loss (0), Facial Movement (Facial Paresis): 1=Minor paralysis (1), Motor Function-Arms Right: 0=No drift (0), Motor Function-Arms Left: 1=Drift (1), Motor Function-Legs Right: 0=No drift (0), Motor Function-Legs Left: 0=Amputation/Joint fused fractured in a boot (0), Limb Ataxia: 1=Present in one limb (1), Sensory: 0=Normal:no loss (0), Best Language: 0=No aphasia (0), Dysarthria: 1=Mild to moderate loss (1), Extinction & Inattention: 0=No abnormality (0), Total: 4 Stroke Thrombolytic Exclusion Age 18 or Over: Yes Acute intenal hemorrhage: No History of CVA: No Uncontrolled Coagulation Defec: No Intracranial Hemorrhage: No Severe Hypertension: No GI or Bleed: No Subarachnoid Hemorrhage: No Intracranial Neoplasm/Aneurysm: No Oral Anticoagulants: No Surgery or Trauma: No Puncture of Non-Compressible V: No Recent CPR: No Diabetic Hemorrhagic Retinopat: No Organ Biopsy: No Recent Obstetric Delivery: No Glucose: No Significant Hepatic Dysfunctio: No NIH Stoke Scale >22: No Bacterial Endocarditis: No Pericarditis: No Improving Symptoms: No Platelets: No TPA Contraindication: No Focused Exam Lactate Level 12/24/19 02:54: Lactic Acid Level Laboratory Tests Test 12/24/19 02:54 Procedures/Interventions Date of ETT Placement: Mar 09, 2017 Time of ETT Placement: 1811 Suture Size: 5-0 Progress/Results/Core Measures Results/Orders Lab Results Laboratory Tests Test 12/24/19 01:52 12/24/19 02:07 12/24/19 02:18 12/24/19 02:54 Range/Units White Blood Count 6.5 4.3-11.0 10^3/uL Red Blood Count 3.81 L 4.30-5.52 10^6/uL Hemoglobin 10.1 L 13.3-17.7 g/dL Hematocrit 32 L 40-54 % Mean Corpuscular Volume 84 80-99 fL Mean Corpuscular Hemoglobin 27 25-34 pg Mean Corpuscular Hemoglobin Concent 32 32-36 g/dL Red Cell Distribution Width 14.6 H 10.0-14.5 % Platelet Count 273 130-400 10^3/uL Mean Platelet Volume 8.7 L 9.0-12.2 fL Immature Granulocyte % (Auto) 1 % Neutrophils (%) (Auto) 74 42-75 % Lymphocytes (%) (Auto) 14 12-44 % Monocytes (%) (Auto) 11 0-12 % Eosinophils (%) (Auto) 0 0-10 % Basophils (%) (Auto) 0 0-10 % Neutrophils # (Auto) 4.8 1.8-7.8 10^3/uL Lymphocytes # (Auto) 0.9 L 1.0-4.0 10^3/uL Monocytes # (Auto) 0.7 0.0-1.0 10^3/uL Eosinophils # (Auto) 0.0 0.0-0.3 10^3/uL Basophils # (Auto) 0.0 0.0-0.1 10^3/uL Immature Granulocyte # (Auto) 0.0 0.0-0.1 10^3/uL Prothrombin Time 13.0 12.2-14.7 SEC INR Comment 0.9 0.8-1.4 Activated Partial Thromboplast Time 40 H 24-35 SEC D-Dimer 0.78 H 0.00-0.49 UG/ML Sodium Level 132 L 135-145 MMOL/L Potassium Level 4.2 3.6-5.0 MMOL/L Chloride Level 95 L 98-107 MMOL/L Carbon Dioxide Level 27 21-32 MMOL/L Anion Gap 10 5-14 MMOL/L Blood Urea Nitrogen 8 7-18 MG/DL Creatinine 0.83 0.60-1.30 MG/DL Estimat Glomerular Filtration Rate > 60 BUN/Creatinine Ratio 10 Glucose Level 124 H 70-105 MG/DL Calcium Level 8.4 L 8.5-10.1 MG/DL Corrected Calcium 8.3 L 8.5-10.1 MG/DL Total Bilirubin 0.1 0.1-1.0 MG/DL Aspartate Amino Transf (AST/SGOT) 11 5-34 U/L Alanine Aminotransferase (ALT/SGPT) 8 0-55 U/L Alkaline Phosphatase 215 H 40-136 U/L Troponin I < 0.028 <0.028 NG/ML Total Protein 7.3 6.4-8.2 GM/DL Albumin 4.1 3.2-4.5 GM/DL Glucometer 107 70-110 MG/DL Blood Gas Puncture Site RIGHT RADIAL Blood Gas Patient Temperature 37.1 Arterial Blood pH 7.38 7.37-7.43 Arterial Blood Partial Pressure CO2 53 H 35-45 MMHG Arterial Blood Partial Pressure O2 90 79-93 MMHG Arterial Blood HCO3 30 H 23-27 MMOL/L Arterial Blood Total CO2 31.9 H 21.0-31.0 MMOL/L Arterial Blood Oxygen Saturation 96 94-100 % Arterial Blood Base Excess 5.4 H -2.5-2.5 MMOL/L Johan Test POSITIVE Blood Gas Ventilator Setting NO Blood Gas Inspired Oxygen 4 My Orders Orders - KALEN LUZ Cbc With Automated Diff (12/24/19:48) Protime With Inr (12/24/19:48) Partial Thromboplastin Time (12/24/19:48) Comprehensive Metabolic Panel (12/24/19:48) Fibrin Degradation Products (12/24/19:48) Troponin I (12/24/19:48) Ua Culture If Indicated (12/24/19:48) Chest 1 View, Ap/Pa Only (12/24/19:48) Ekg Tracing (12/24/19:48) Nothing By Mouth (12/24/19 Breakfast) Accucheck Stat ONCE (12/24/19:48) Ed Iv/Invasive Line Start (12/24/19:48) Ed Iv/Invasive Line Start (12/24/19:48) Vital Signs Stroke Patient Q15M (12/24/19:48) Ct Head Wo-R/O Stroke (12/24/19:48) O2 (12/24/19 01:48) Intake & Output 06,14,22 (12/24/19:48) Monitor-Rhythm Ecg Trace Only (9/25/20 01:48) Dysphagia Screening Tool (12/24/19 01:48) Post Thrombolytic Adminstratio (12/24/19 01:48) Lipid Panel (12/25/19 06:00) Dilantin (Phenytoin) (12/24/19 02:07) Ed Iv/Invasive Line Start (12/24/19 02:07) Lactated Ringers (Lr 1000 Ml Iv Solution (12/24/19 02:07) Lactated Ringers (Lr 1000 Ml Iv Solution (12/24/19 02:15) Cefepime Injection (Maxipime Injection) (12/24/19 02:15) Vancomycin Injection (Vancomycin Injecti (12/24/19 02:15) Vancomycin Injection (Vancomycin Injecti (12/24/19 03:15) Blood Culture (12/24/19 02:11) Lactic Acid Analyzer (12/24/19 02:11) Arterial Blood Gas (12/24/19 02:14) Arterial Blood Draw (12/24/19 ) Medications Given in ED Current Medications Medications Dose Ordered Sig/Porfirio Route Start Time Stop Time Status Last Admin Dose Admin Cefepime HCl 1000 mg/Sterile Water 10 ml @ 200 mls/hr ONCE ONCE IV 12/24/19 02:15 12/24/19 02:17 DC 12/24/19 02:32 200 MLS/HR Lactated Ringer's 1,000 ml @ 0 mls/hr Q0M ONCE IV 12/24/19 02:07 12/24/19 02:10 DC 12/24/19 02:33 0 MLS/HR Vancomycin HCl 750 mg/Sodium Chloride 250 ml @ 250 mls/hr ONCE ONCE IV 12/24/19 03:15 12/24/19 04:14 12/24/19 02:33 250 MLS/HR Vancomycin HCl 1000 mg/Sodium Chloride 250 ml @ 250 mls/hr ONCE ONCE IV 12/24/19 02:15 12/24/19 03:14 12/24/19 02:32 250 MLS/HR Vital Signs/I&O 12/24/19 12/24/19 01:41 01:41 Temp 37.1 Pulse 70 Resp 18 B/P (MAP) 185/102 (129) Pulse Ox 99 99 O2 Delivery Nasal Cannula Nasal Cannula O2 Flow Rate 4.00 4.00 Progress Progress Note #1: Time: 01:59 Progress Note The patient does have some slurred speech and maybe a little left facial droop. His left arm is quite atrophied and is probably chronic. He does not have a heart history and is not on blood thinners. He declines that he is having a stroke. He thinks this is pneumonia. He does have a history of polio. Plan to get a chest x-ray as well. Because of the abrupt onset of symptoms however a CT of the head would be advisable. We'll check a Dilantin level. Records do indicate his left arm is chronically contractured. He was recently on Xarelto secondary to his leg fracture. If we can rule out a bleed on CT then we will abandon this diagnosis. Progress Note #2: Time: 03:03 Progress Note After IV fluids and oral fluids the patient is not having any difficulty with his speech. His chest x-ray and labs look okay. He is at his neurologic baseline per other staff you are familiar with him. Apparently he is not having any new facial droop. He does have a fused neck with implants that contributes to this appearance. We offered him an overnight stay for reexamination and he declined saying that he was ready to go home. Initial ECG Impression Date: Dec 24, 2019 Initial ECG Impression Time: 02:05 Initial ECG Rate: 67 Initial ECG Rhythm: Normal Sinus Initial ECG Intervals: Normal Initial ECG Impression: Normal, Nonspecific Changes Initial ECG Comparisson: Unchanged Comment Ectopic atrial rhythm without clinically relevant ST elevation or depression. Diagnostic Imaging Diagonstic Imaging: CT Plain Films/CT/US/NM/MRI: head Comments No intercranial hemorrhage, mass effect midline shift. No acute changes compared to October 2019 CT. Reviewed: Reviewed by Me Diagonstic Imaging: Xray Plain Films/CT/US/NM/MRI: chest Comments Chronic scarring and changes but no acute findings on one view chest x-ray. Reviewed: Reviewed by Me Departure Impression Primary Impression: Dehydration Disposition: 01 HOME, SELF-CARE Condition: Stable Departure-Patient Inst. Decision time for Depature: 03:07 Referrals: AMANDEEP GENAO DO (PCP/Family) Primary Care Physician Patient Instructions: Dehydration, Adult (DC) Add. Discharge Instructions: Drink plenty fluids. If your symptoms return please return to the nearest ER for further evaluation. Please call Dr. Genao in the morning and request a follow-up appointment in the next week. All discharge instructions reviewed with patient and/or family. Voiced understanding. Copy Copies To 1: AMANDEEP GENAO TITUS J Dec 24, 2019 01:57
[2019-12-24 02:00] LABS: BASOPHILS % (AUTO) 0 % (0-10); EOSINOPHILS % (AUTO) 0 % (0-10); HEMATOCRIT 32 % (40-54); HEMOGLOBIN 10.1 g/dL (13.3-17.7); LYMPHOCYTES # (AUTO) 0.9 10^3/uL (1.0-4.0); LYMPHOCYTES % (AUTO) 14 % (12-44); MEAN CORPUSCULAR HEMOGLOBIN 27 pg (25-34); MEAN CORPUSCULAR HGB CONC 32 g/dL (32-36); MEAN CORPUSCULAR VOLUME 84 fL (80-99); MEAN PLATELET VOLUME 8.7 fL (9.0-12.2); MONOCYTES # (AUTO) 0.7 10^3/uL (0.0-1.0); MONOCYTES % (AUTO) 11 % (0-12); NEUTROPHILS # (AUTO) 4.8 10^3/uL (1.8-7.8); NEUTROPHILS % (AUTO) 74 % (42-75); PLATELET COUNT 273 10^3/uL (130-400); WHITE BLOOD COUNT 6.5 10^3/uL (4.3-11.0)
[2019-12-24] MEDS ORDERED: LACTATED RINGERS 1,000 ML IV ONE (02:07)
[2019-12-24 02:11] LABS: ALBUMIN 4.1 GM/DL (3.2-4.5); CHLORIDE 95 MMOL/L (98-107); POTASSIUM 4.2 MMOL/L (3.6-5.0); SODIUM 132 MMOL/L (135-145)
[2019-12-24 02:12] LABS: CALCIUM 8.4 MG/DL (8.5-10.1)
[2019-12-24 02:13] LABS: GLUCOSE 124 MG/DL (70-105); TOTAL PROTEIN 7.3 GM/DL (6.4-8.2)
[2019-12-24 02:14] LABS: CARBON DIOXIDE 27 MMOL/L (21-32); FIBRIN DEGRADATION PRODUCTS 0.78 UG/ML (0.00-0.49); INR 0.9 (0.8-1.4)
[2019-12-24 02:15] LABS: BILIRUBIN,TOTAL 0.1 MG/DL (0.1-1.0)
[2019-12-24] MEDS ORDERED: CEFEPIME INJECTION 1,000 MG in WATER (STERILE) FOR INJECTION 10 ML IV ONE (02:15)
[2019-12-24] MEDS ORDERED: VANCOMYCIN INJECTION 1,000 MG in NS (IVPB) 250 ML IV ONE (02:15)
[2019-12-24] MEDS ORDERED: LACTATED RINGERS 1,000 ML IV SCH (02:15)
[2019-12-24 02:16] LABS: ALKALINE PHOSPHATASE 215 U/L (40-136)
[2019-12-24 02:17] LABS: CREATININE SERUM 0.83 MG/DL (0.60-1.30); GFR ESTIMATED > 60
[2019-12-24 02:18] LABS: BUN/CREATININE RATIO 10
[2019-12-24 02:20] LABS: ABG BASE EXCESS 5.4 MMOL/L (-2.5-2.5); ABG OXYGEN SATURATION 96 % (94-100); ABG PCO2 53 MMHG (35-45); ABG PH 7.38 (7.37-7.43); ABG PO2 90 MMHG (79-93); ABG TCO2 31.9 MMOL/L (21.0-31.0)
[2019-12-24 02:20] LABS: ALANINE AMINOTRANSFERASE 8 U/L (0-55)
[2019-12-24 02:30] LABS: ALLENS TEST POSITIVE; INSPIRED O2 4; PATIENT TEMP 37.1; VENTILATOR NO
[2019-12-24] MEDS ORDERED: VANCOMYCIN INJECTION 750 MG in NS (IVPB) 250 ML IV ONE (03:15)
[2019-12-24 03:18] VITALS: BP 180/89
--- NOTE | 2019-12-24 06:10 | Diagnostic Imaging Report ---
PROCEDURE: CT head wo r/o stroke. TECHNIQUE: Multiple contiguous axial images were obtained through the brain without the use of intravenous contrast. Auto Exposure Controls were utilized during the CT exam to meet ALARA standards for radiation dose reduction. INDICATION: Stroke. COMPARISON: CT head without contrast 11/06/2019. FINDINGS: No intracranial hemorrhage, mass effect, hydrocephalus or extra-axial fluid collections. Asymmetric large right lateral ventricle is stable. No CT evidence of territorial infarction. No acute osseous findings. The paranasal sinuses are clear. Left mastoid effusion. IMPRESSION: No acute intracranial CT findings. Findings reported by the preliminary interpreting radiologist at 2:13 AM on 12/24/2019. Agree with preliminary interpretation. Dictated by: Dictated on workstation # [id number]
== END 2019-12-24 03:20 | disposition home or self-care (01) ==
LOC: EDUNIT# 01:42 → ER 01:43
DX: E86.0 Dehydration (principal); J96.10 Chronic respiratory failure, unspecified whether with hypoxia or hypercapnia; J44.9 Chronic obstructive pulmonary disease, unspecified; I10 Essential (primary) hypertension; E78.00 Pure hypercholesterolemia, unspecified; K21.9 Gastro-esophageal reflux disease without esophagitis; G40.909 Epilepsy, unspecified, not intractable, without status epilepticus; G62.9 Polyneuropathy, unspecified; Z88.6 Allergy status to analgesic agent; Z88.5 Allergy status to narcotic agent; Z99.81 Dependence on supplemental oxygen; Z79.51 Long term (current) use of inhaled steroids; Z79.52 Long term (current) use of systemic steroids; Z87.891 Personal history of nicotine dependence; Z85.118 Personal history of other malignant neoplasm of bronchus and lung; Z85.830 Personal history of malignant neoplasm of bone
CPT/HCPCS: 36415; 36600; 70450; 71045; 80053; 80185; 82805; 82962; 83605; 84484; 85025; 85379; 85610; 85730; 87040; 93005; 93041

== ENCOUNTER 2019-12-26 03:09 | Emergency (ER) | payer MEDICARE, MEDICAID ==
[~2019-12-26] VITALS: Ht 182.8 cm; Wt 78.9 kg
[2019-12-26] MEDS ORDERED: LACTATED RINGERS 1,000 ML IV ONE (03:30)
[2019-12-26 03:53] LABS: BASOPHILS % (AUTO) 0 % (0-10); EOSINOPHILS % (AUTO) 0 % (0-10); HEMATOCRIT 29 % (40-54); HEMOGLOBIN 9.3 g/dL (13.3-17.7); LYMPHOCYTES # (AUTO) 0.7 10^3/uL (1.0-4.0); LYMPHOCYTES % (AUTO) 14 % (12-44); MEAN CORPUSCULAR HEMOGLOBIN 26 pg (25-34); MEAN CORPUSCULAR HGB CONC 32 g/dL (32-36); MEAN CORPUSCULAR VOLUME 83 fL (80-99); MEAN PLATELET VOLUME 8.9 fL (9.0-12.2); MONOCYTES # (AUTO) 0.7 10^3/uL (0.0-1.0); MONOCYTES % (AUTO) 14 % (0-12); NEUTROPHILS # (AUTO) 3.5 10^3/uL (1.8-7.8); NEUTROPHILS % (AUTO) 72 % (42-75); PLATELET COUNT 245 10^3/uL (130-400); WHITE BLOOD COUNT 4.8 10^3/uL (4.3-11.0)
[2019-12-26] MEDS ORDERED: HOLD METFORMIN - RECEIVED CONTRAST 20 ML VIAL IV SCH (04:00)
[2019-12-26] MEDS ORDERED: IOHEXOL 350 MG/ML 100 ML (OMNIPAQUE 350) VIAL IV ONE (04:00)
[2019-12-26] MEDS ORDERED: NS 100 ML (IVPB) BAG IV ONE (04:00)
--- NOTE | 2019-12-26 04:01 | ED General ---
General Stated Complaint: DIFFICULTY SWALLOWING Source of Information: Patient, EMS, Old Records (CHUNG VASQUEZ DO) History of Present Illness Date Seen by Provider: Dec 26, 2019 Time Seen by Provider: 03:10 Initial Comments PT ARRIVES VIA EMS FROM HOME C/O DIFFICULTY TALKING--STATES IT BEGAN 30 MINUTES PRIOR TO ARRIVAL PT IS DIFFICULT HISTORIAN--REPORTED TO EMS HE WAS HAVING DIFFICULTY SWALLOWING, BUT PT WAS DRINKING WATER AT THE SCENE WITHOUT DIFFICULTY--STATES HE JUST HAD 4- 5 CUPS OF WATER JUST PRIOR TO ARRIVAL PT WITH A MULTITUDE OF VISITS--15 VISITS IN 2019--FOR VARIOUS COMPLAINTS. PT WAS HERE 12/24/19 FOR EXACT SAME COMPLAINT--EXTENSIVE WORK UP, INCLUDING HEAD CT, WAS ALL ESSENTIALLY NORMAL--SYMPTOMS SPONTANEOUSLY RESOLVED IN ER, AND PT DECLINED ADMIT AT THAT TIME. SPEECH APPEARS "THICK TONGUED" ON ARRIVAL, YET PT IS TALKING NON-STOP AND MAKING MULTIPLE DEMANDS ON ARRIVAL--WANTING SOMETHING TO DRINK, REPOSITIONED, ETC. GIVEN AN ORAL SWAB, WHICH HE IS VIGOROUSLY SUCKING ON AND IS SWALLOWING WITHOUT ANY DIFFICULTY WHATSOEVER. NO THROAT PAIN NO MOUTH OR TONGUE PAIN NO SWELLING TO LIPS, TONGUE OR THROAT HAS LUNG CANCER AND COPD ON 4L/NC CONTINUOUSLY, AND DIFFICULTY BREATHING IS NOT ANY DIFFERENT THAN NORMAL. NO CHANGE IN CHRONIC COUGH NO FEVER NO SWELLING IN LEGS. LEFT FOOT/LOWER LEG IN BOOT, DUE TO NON-HEALING FRACTURE OF LEFT LOWER LEG FORM EARLIER THIS YEAR. 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 PT HAD C-SPINE FRACTURE AND CERVICAL FUSION IN THE PAST --NO NEW COMPLAINTS REGARDING THIS PT STATES HE IS NO LONGER ON XARELTO AFTER NOSEBLEED 11/29/19--NO INTRACRANIAL BLEED OR ACUTE FINDINGS ON CT SCAN ON 12/24/19 PCP: DR. GENAO [employer] EXAMINER: DR. PACHECO ONCOLOGIST: DR. PRICE (CHUNG VASQUEZ DO) Allergies and Home Medications Allergies Coded Allergies: aspirin (Unverified Allergy, Mild, DOES NOT WORK WELL W/ OTHER MEDS, 09/20/19) ibuprofen (Unverified Allergy, Mild, 09/20/19) hydrocodone (Verified Adverse Reaction, Intermediate, BECOMES TOO SEDATED, 09/22/19) Home Medications Acetaminophen 500 Mg Tablet, 1,000 MG PO Q6H PRN for PAIN-MILD (1-4), (Reported) Albuterol Sulfate 2.5 Mg/3 Ml Vial.neb, 2.5 MG NEB Q4H PRN for SHORTNESS OF BREATH, (Reported) Albuterol Sulfate 1 Puff Puff, 2 PUFF IH Q6H PRN for SHORTNESS OF BREATH, (Reported) Amlodipine Besylate 10 Mg Tablet, 10 MG PO DAILY Prescribed by: KALEN LUZ on 09/03/191948 Atorvastatin Calcium 20 Mg Tablet, 10 MG PO 0300, (Reported) TAKES OF A 20MG ONCE DAILY Carbamazepine 200 Mg Tablet, 200 MG PO 0300,0800,2300, (Reported) Carbamazepine 200 Mg Tablet, 400 MG PO 1500, (Reported) TAKES 2 (200 MG) TABLETS Cefuroxime Axetil 250 Mg Tablet, 250 MG PO BID Prescribed by: NOREEN CHÁVEZ on 11/06/19 184 Cefuroxime Axetil 500 Mg Tablet, 500 MG PO BID Prescribed by: CHUNG VASQUEZ on 11/29/192036 Clopidogrel Bisulfate 75 Mg Tablet, 75 MG PO DAILY Prescribed by: VANESSA GUTHRIE on 12/26/19 0908 Fluticasone/Salmeterol 12 Gm Hfa.aer.ad, 1 PUFF IH BID, (Reported) Gabapentin 600 Mg Tablet, 600 MG PO 0800,1500, (Reported) Gabapentin 300 Mg Capsule, 300 MG PO 2300, (Reported) Lamotrigine 25 Mg Tablet, 25 MG PO 0300, 1500, (Reported) TAKES 25MG @ 0300 25MG + 100MG @1500 Lamotrigine 100 Mg Tablet, 100 MG PO 2300, (Reported) Meloxicam 15 Mg Tablet, 15 MG PO 1500, (Reported) Omeprazole 20 Mg Capsule.dr, 20 MG PO DAILY PRN for HEARTBURN, (Reported) Oxycodone HCl/Acetaminophen 1 Each Tablet, 1 EACH PO Q4H PRN for PAIN-SEVERE Prescribed by: FAVIAN BALL on 09/22/19 1209 Phenytoin Sodium Extended 100 Mg Capsule, 200 MG PO 1500, (Reported) TAKES 2 (100 MG) CAPSULES Phenytoin Sodium Extended 100 Mg Capsule, 100 MG PO 0800,2300, (Reported) TAKES 100MG @ 0800 & 2300 Prednisone 20 Mg Tab, 40 MG PO DAILY Prescribed by: NOREEN CHÁVEZ on 11/06/19 184 Ropinirole HCl 0.5 Mg Tablet, 0.5 MG PO 1500, (Reported) Tiotropium [place] 1 Inh Aerp, 1 CAP IH 1500, (Reported) Zinc Oxide 57 Gm Oint...g., 1 APPLIC TP EVERY 3 HOURS PRN for RASH, (Reported) Patient Home Medication List Home Medication List Reviewed: Yes (VANESSA GUTHRIE MD) Review of Systems Review of Systems Constitutional: no symptoms reported; No chills, No diaphoresis, No dizziness, No fever EENTM: No blurred vision, No double vision, No eye pain, No vision loss, No hoarseness, No mouth swelling, No nose congestion, No throat pain, No throat swelling Respiratory: see HPI (NO ACUTE RESPIRATORY COMPLAINT) Cardiovascular: no symptoms reported; No chest pain, No edema Gastrointestinal: no symptoms reported; No abdominal pain, No nausea, No other Genitourinary: no symptoms reported Musculoskeletal: see HPI Skin: no symptoms reported Psychiatric/Neurological: See HPI; Denies Headache; Pre-Existing Deficit, Other Hematologic/Lymphatic: No Symptoms Reported Immunological/Allergic: no symptoms reported (CHUNG VASQUEZ DO) Past Yvkagqg-Xxupfn-Iwqlku Hx Past Med/Social Hx: Reviewed and Corrections made (CHUNG VASQUEZ DO) Patient Social History Alcohol Use: Past History Recreational Drug Use: Yes Drug of Choice: HX OF RX DRUG ABUSE, CLAIMS NONE 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 Smoking Status: Current Everyday Smoker Type Used: Cigars, Cigarettes 2nd Hand Smoke Exposure: Yes Recent Foreign Travel: No Contact w/Someone Who Travel: No Recent Hopitalizations: No (CHUNG VASQUEZ DO) Immunizations Up To Date Tetanus Booster (TDap): Less than 5yrs PED Vaccines UTD: Yes Date of Influenza Vaccine: Apr 21, 2018 (CHUNG VASQUEZ DO) Seasonal Allergies Seasonal Allergies: Yes (CHUNG VASQUEZ DO) Past Medical History Surgeries: Yes (C-SPINE SURGERY FOR FX; LEFT LOWER LEG SURGERY 10/2019) Eye Surgery, Gallbladder, Orthopedic Respiratory: Yes (O2 AT 4L/NC CONTINUOUSLY;LUNG CANCER;MULT EPISODES OF PNEUMONIA) Asthma, Pneumonia, Chronic Bronchitis, Sleep Apnea, COPD Currently Using CPAP: No Currently Using BIPAP: No Cardiac: Yes Heart Murmur, High Cholesterol, Hypertension, Valvular Heart Disease 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) Neuropathy, Paralysis, Seizure Disorder, Vertigo Reproductive Disorders: No Sexually Transmitted Disease: No HIV/AIDS: No Genitourinary: No Gastrointestinal: Yes (CHRONIC N/V) Gastroesophageal Reflux Musculoskeletal: Yes (HX C-SPINE FX/NON-UNION OF ODONTOID; FALLS;POST POLIO-L SIDE WEAKNESS/CONTR) Arthritis, Fractures, Contracture Endocrine: No HEENT: Yes (DENTURES) Loss of Vision: Denies Hearing Impairment: Denies Cancer: Yes Bone, Lung Did You Recieve Any Treatments: Yes What Type of Treatment Did You: Chemotherapy Psychosocial: No Integumentary: Yes (DECUBITUS ULCERS ON SACRUM/BUTTOCKS AREA) Blood Disorders: No Adverse Reaction/Blood Tranf: No (CHUNG VASQUEZ DO) Family Medical History Diabetes mellitus 19 MOTHER Hypercholesterolemia 19 FATHER Hypertension 19 FATHER Heart Disease SOCIAL HISTORY: -ETOH--HX OF ABUSE, CLAIMS NO RECENT USE -DRUGS--HX OF RX DRUG ABUSE, CLAIMS NO RECENT USE -SMOKES AT LEAST 1 1/2 PPD PAST SURGICAL HISTORY: -BILATERAL CATARACT SURGERY 2017 -CHOLECYSTECTOMY -CERVICAL SPINE FUSION 07/2019--HAD SUBLUXATION OF CHRONIC NON-HEALING ODONTOID FRACTURE --DR. PRESCOTT -PORT RIGHT CHEST -CT GUIDED BIOPSY OF FEMUR ADDITIONAL PMH: -PT HAD NON-HEALING ONDONTOID FX 02/2018 ( NO SURGERY AT THAT TIME) --08/08/19 HAD SUBLUXATION OF THIS FRACTURE AND HAD CERVICAL SPINE FUSION -06/08/19--LEFT TIB-FIB FRACTURE, TREATED BY BOTH DR. BENITES AT [facility], AND BY DR. RUBY. 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 (CHUNG VASQUEZ DO) Physical Exam Vital Signs Vital Signs - First Documented 12/26/19 12/26/19 03:10 06:20 Temp 36.9 Pulse 77 Resp 20 B/P (MAP) 199/128 (151) Pulse Ox 94 O2 Delivery Nasal Cannula O2 Flow Rate 3.00 (VANESSA GUTHRIE MD) Vital Signs Capillary Refill : (CHUNG VASQUEZ DO) Height, Weight, BMI Height: 6'0" Weight: 174lbs. 3.0oz. [id number]; 28.00 BMI Method:Stated General Appearance: No Apparent Distress, WD/WN, Other (DIRTY, UNKEMPT. SUCKING ON ORAL SWAB WITHOUT DIFFICULTY. TALKING NON-STOP, SPEECH "THICK-TONGUED" . REQUIRES 2-3 PERSON ASSIST FOR TRANSFERS, AND IS DYSPNEIC WITH ANY EFFORT--PT'S NORMAL BASELINE. VERY POOR POSTURE, WITH HEAD SLIGHLTY FLEXED AND LEANING TO LEFT--NORMAL BASELINE ) HEENT: PERRL/EOMI, Moist Mucous Membranes, Other (TONGUE APPEARS NORMAL AND IS MIDLINE. NO SWELLING. ABLE TO FULLY STICK OUT TONGUE. NO FACIAL DROOP NOTED. EDENTULOUS) Neck: Normal Inspection; No Carotid Bruit, No JVD; Other (PT WITH NECK IN PARTIAL FLEXION) Respiratory: No Respiratory Distress, Rales (RALES BILATERALLY) Cardiovascular: Regular Rate, Rhythm, Systolic Murmur (3-4/6 ) Gastrointestinal: Non Tender, Soft Extremity: Other (LEFT LOWER LEG AND FOOT IN BOOT--WHICH IS FREELY MOBILE AND VERY EXTERNALLY ROTATED AT THIS TIME--HAS NON-HEALING TIB-FIB FRACTURE AND THIS IS PT'S BASELINE. NO PEDAL OR LOWER LEG EDEMA. BOTH FEET ARE PINK AND WARM, AND +1/4 PULSES BILATERALLY. DISTAL MOTOR IS INTACT. 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 SPEECH IS "THICK-TONGUED" BUT IS ABLE TO GET WORDS OUT. ) Skin: Normal Color, Warm/Dry (CHUNG VASQUEZ DO) Procedures/Interventions Date of ETT Placement: Mar 09, 2017 Time of ETT Placement: 1811 (CHUNG VASQUEZ DO) Suture Size: 5-0 (CHUNG VASQUEZ DO) Progress/Results/Core Measures Suspected Sepsis SIRS Temperature: Pulse: Respiratory Rate: Laboratory Tests 12/26/19 03:43: White Blood Count 4.8 Blood Pressure / Mean: Laboratory Tests 12/26/19 03:43: Creatinine 0.70, INR Comment 1.0, Platelet Count 245, Total Bilirubin 0.2 (SORENCHUNG Harris ) Results/Orders Lab Results Laboratory Tests Test 12/26/19 03:43 12/26/19 03:50 Range/Units White Blood Count 4.8 4.3-11.0 10^3/uL Red Blood Count 3.56 L 4.30-5.52 10^6/uL Hemoglobin 9.3 L 13.3-17.7 g/dL Hematocrit 29 L 40-54 % Mean Corpuscular Volume 83 80-99 fL Mean Corpuscular Hemoglobin 26 25-34 pg Mean Corpuscular Hemoglobin Concent 32 32-36 g/dL Red Cell Distribution Width 14.5 10.0-14.5 % Platelet Count 245 130-400 10^3/uL Mean Platelet Volume 8.9 L 9.0-12.2 fL Immature Granulocyte % (Auto) 0 % Neutrophils (%) (Auto) 72 42-75 % Lymphocytes (%) (Auto) 14 12-44 % Monocytes (%) (Auto) 14 H 0-12 % Eosinophils (%) (Auto) 0 0-10 % Basophils (%) (Auto) 0 0-10 % Neutrophils # (Auto) 3.5 1.8-7.8 10^3/uL Lymphocytes # (Auto) 0.7 L 1.0-4.0 10^3/uL Monocytes # (Auto) 0.7 0.0-1.0 10^3/uL Eosinophils # (Auto) 0.0 0.0-0.3 10^3/uL Basophils # (Auto) 0.0 0.0-0.1 10^3/uL Immature Granulocyte # (Auto) 0.0 0.0-0.1 10^3/uL Prothrombin Time 13.1 12.2-14.7 SEC INR Comment 1.0 0.8-1.4 Activated Partial Thromboplast Time 42 H 24-35 SEC Sodium Level 130 L 135-145 MMOL/L Potassium Level 4.3 3.6-5.0 MMOL/L Chloride Level 92 L 98-107 MMOL/L Carbon Dioxide Level 29 21-32 MMOL/L Anion Gap 9 5-14 MMOL/L Blood Urea Nitrogen 7 7-18 MG/DL Creatinine 0.70 0.60-1.30 MG/DL Estimat Glomerular Filtration Rate > 60 BUN/Creatinine Ratio 10 Glucose Level 103 70-105 MG/DL Calcium Level 8.7 8.5-10.1 MG/DL Corrected Calcium 8.9 8.5-10.1 MG/DL Magnesium Level 1.8 1.6-2.4 MG/DL Total Bilirubin 0.2 0.1-1.0 MG/DL Aspartate Amino Transf (AST/SGOT) 10 5-34 U/L Alanine Aminotransferase (ALT/SGPT) 8 0-55 U/L Alkaline Phosphatase 180 H 40-136 U/L Myoglobin 20.2 10.0-92.0 NG/ML Total Protein 6.7 6.4-8.2 GM/DL Albumin 3.7 3.2-4.5 GM/DL Amylase Level 18 L 25-125 U/L Acetaminophen Level < 10 L 10-30 UG/ML Serum Alcohol < 10 <10 MG/DL Urine Color YELLOW Urine Clarity CLEAR Urine pH 7.0 5-9 Urine Specific [place] 1.010 L 1.016-1.022 Urine Protein NEGATIVE NEGATIVE Urine Glucose (UA) NEGATIVE NEGATIVE Urine Ketones NEGATIVE NEGATIVE Urine Nitrite NEGATIVE NEGATIVE Urine Bilirubin NEGATIVE NEGATIVE Urine Urobilinogen 0.2 < = 1.0 MG/DL Urine Leukocyte Esterase TRACE H NEGATIVE Urine RBC (Auto) NEGATIVE NEGATIVE Urine RBC NONE /HPF Urine WBC RARE /HPF Urine Squamous Epithelial Cells 0-2 /HPF Urine Crystals NONE /LPF Urine Bacteria TRACE /HPF Urine Casts NONE /LPF Urine Mucus NEGATIVE /LPF Urine Culture Indicated NO Urine Opiates Screen POSITIVE H NEGATIVE Urine Oxycodone Screen NEGATIVE NEGATIVE Urine Methadone Screen NEGATIVE NEGATIVE Urine Propoxyphene Screen NEGATIVE NEGATIVE Urine Barbiturates Screen POSITIVE H NEGATIVE Ur Tricyclic Antidepressants Screen NEGATIVE NEGATIVE Urine Phencyclidine Screen NEGATIVE NEGATIVE Urine Amphetamines Screen NEGATIVE NEGATIVE Urine Methamphetamines Screen NEGATIVE NEGATIVE Urine Benzodiazepines Screen NEGATIVE NEGATIVE Urine Cocaine Screen NEGATIVE NEGATIVE Urine Cannabinoids Screen NEGATIVE NEGATIVE (VANESSA GUTHRIE MD) Medications Given in ED Current Medications Medications Dose Ordered Sig/Porfirio Route Start Time Stop Time Status Last Admin Dose Admin Iohexol 100 ml ONCE ONCE IV 12/26/19 04:00 12/26/19 04:01 DC 12/26/19 04:34 75 ML Lactated Ringer's 1,000 ml @ 0 mls/hr Q0M ONCE IV 12/26/19 03:30 12/26/19 03:31 DC 12/26/19 04:59 1,000 MLS/HR Sodium Chloride 100 ml ONCE ONCE IV 12/26/19 04:00 12/26/19 04:01 DC 12/26/19 04:34 80 ML (VANESSA GUTHRIE MD) Vital Signs/I&O 12/26/19 12/26/19 03:10 06:20 Temp 36.9 37.0 Pulse 77 72 Resp 20 18 B/P (MAP) 199/128 (151) 184/94 (151) Pulse Ox 94 98 O2 Delivery Nasal Cannula Nasal Cannula O2 Flow Rate 3.00 (VANESSA GUTHRIE MD) Vital Signs/I&O Capillary Refill : (CHUNG VASQUEZ DO) Progress Note : Progress Note 0330--PT HAD SUDDEN RETURN OF NORMAL SPEECH. CONTINUES TO WANT SOMETHING TO DRINK, ETC. PT GIVEN WATER, WHICH HE DRINKS WITHOUT ANY DIFFICULTY WHATSOEVER PT STATES HE HAS AN APPOINTMENT WITH DR. GENAO ON FRIDAY PT REFUSES TO TAKE ASPIRIN OR RESTART XARELTO OR ANY BLOOD THINNERS PT ANXIOUS TO GO HOME, AND STATES HE IS FINE NOW. DECLINES ADMIT. (CHUNG VASQUEZ DO) Progress Note : Progress Note 0755: I have talked with the radiologist regarding CT angiogram as noted below. I also talked with Dr. Vasquez. Patient did not want to stay earlier and refusing aspirin and Xarelto. He was adamant at time of discharge that he did not want to stay in the hospital. I have tried to call him regarding new findings and he is not answering currently. I did leave message with him to call back. He apparently was resolved at discharge. We will continue to try to make contact with the patient. 0908: I have spoken with the patient as well as to the inpatient physician covering for Dr. Genao. Patient is unable to tolerate as pirin do to it causes him to have breakthrough seizures. He did not tolerate Xarelto due to nosebleeds. We will initiate clopidogrel 75 mg by mouth daily and we will send a copy of the chart to his doctor for further follow-up and management. 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 I did discuss with the patient regarding return precautions and encouraged him to return for any concerns. Patient verbalize understanding and agreement. I did see and a one-month prescription for clopidogrel to [facility] and patient will start that today. He'll see Dr. Genao on Friday. (VANESSA GUTHRIE MD) ECG Initial ECG Impression Date: Dec 26, 2019 Initial ECG Impression Time: 04:55 Initial ECG Rate: 64 Initial ECG Rhythm: Normal Sinus Initial ECG Comparisson: Unchanged (CHUNG VASQUEZ DO) Diagnostic Imaging Comments CT HEAD--NO ACUTE PROCESS, CHRONIC CHANGES--PER [facility] VIA FAX AT [address]994 CT ANGIOGRAM HEAD/NECK--NO SIGNIFICANT HEMODYNAMIC STENOSIS, NO LARGE VESSEL OCCLUSION--PER [facility] VIA FAX AT 1324 Reviewed: Reviewed by Me (CHUNG VASQUEZ DO) Diagonstic Imaging: CT Plain Films/CT/US/NM/MRI: head Comments [facility] [place], [place] NAME: CR QUIJANO [facility] REC#: [id number] PT STATUS: DEP ER : 1955 PHYSICIAN: CHUNG VASQUEZ DO ADMIT DATE: 12/26/19/ER Signed Date of Exam:12/26/19 CT HEAD WO-R/O STROKE Clinical indication: Patient with difficulty swallowing and talking. Exam: Axial CT scan of the brain without IV contrast with coronal and sagittal reformatted images. Auto Exposure Controls were utilized during the CT exam to meet ALARA standards for radiation dose reduction. Comparison: Head CT without contrast dated 12/24/2019. Findings: There is no evidence of acute cerebral infarct, intracranial hemorrhage, or gross mass effect. Stable decreased gyration of the right cerebral hemisphere and enlargement of the right lateral ventricle which may be congenital. There is normal murphy-white matter distinction. There is no significant midline shift or herniation. There is no evidence of hydrocephalus. The basal cisterns are unremarkable. The skull, extracranial soft tissue, and orbits are unremarkable. There is minimal mucosal thickening involving left maxillary sinus and ethmoid sinus. There is large amounts of fluid in the left mastoid air cells which is also noted on the prior study. The remainder of this exam shows no significant interval change compared to the prior study of comparison. Impression: Stable CT scan of brain with no evidence of interval acute intracranial process. I agree with [facility] report. Dictated by: Dictated on workstation # [id number] Dict: 12/26/19 0550 Trans: 12/26/19904 [place]IOT [id number] Interpreted by: KENNEY NELSON MD Electronically signed by: KENNEY NELSON MD 12/26/19904 Diagonstic Imaging: CT Plain Films/CT/US/NM/MRI: other Comments [facility] [place] [place] NAME: CR QUIJANO [facility] REC#: [id number] PT STATUS: DEP ER : 1955 PHYSICIAN: CHUNG VASQUEZ DO ADMIT DATE: 12/26/19/ER Draft Date of Exam:12/26/19 CT ANGIO HEAD/NECK Clinical Indication: Patient with slurred speech. Patient has history of lung cancer. Patient has difficulty swallowing and talking. Exams: 1: Head CT with IV contrast. Auto Exposure Controls were utilized during the CT exam to meet ALARA standards for radiation dose reduction. 2: CT angiogram of the head and neck performed with 100 cc of Omnipaque 350 IV contrast. Sagittal and coronal MIP reformations were created for better visualization of vascular anatomy. Comparison: CT angiogram of the head/neck dated 03/16/2018. Findings: Head CT: Stable appearance of the head CT with no evidence of interval acute intracranial process. There is no abnormal IV contrast enhancement. Stable decreased gyration of the right cerebral hemisphere and prominence of the right lateral ventricle which may be related to congenital findings. There is no hydrocephalus, brain herniation or midline shift. Extracranial soft tissues, skull, and orbits are unremarkable. Paranasal sinuses are clear. Large amounts of fluid in left mastoid air cells are again seen. CT Angiogram: Four-vessel aortic arch is seen with the left vertebral artery arising from the aortic arch. There is streaky motion artifact limiting evaluation of the proximal to mid left subclavian artery. Unable to evaluate if there is any significant stenosis in the region. There was no significant abnormality in this region on the prior CT angiogram. Otherwise, the bilateral subclavian arteries, brachiocephalic artery, right common carotid artery, and left common carotid arteries are patent. There is tortuosity of the proximal left cervical ICA. There is moderate stenosis of the proximal cervical left ICA which has slightly progressed in interim. The remainder of the cervical left ICA shows no significant stenosis. The left ECA is patent. The cervical right ICA shows mild stenosis of the proximal cervical right ICA. The remainder of the cervical right ICA is patent. There is atherosclerotic disease of the bilateral cavernous and supraclinoid ICA. There are mild areas of narrowing involving the right supraclinoid ICA and bilateral cavernous carotid arteries. There is stable mild to moderate narrowing of the proximal cervical right vertebral artery. The remainder of the cervical right vertebral artery is patent. There is atherosclerotic disease of the proximal cervical left vertebral artery. The left cervical vertebral artery is small in caliber. There is interval progression of diffuse decreased caliber of the cervical left vertebral artery which is occluded at the level of the C2 vertebral body region. There are vascular structures extending out laterally into the neck soft tissue just prior to the occluded portion. There is reconstitution of the distal left cervical ICA at the level of the skull base which is small in size. There is also progression of narrowing of the intradural left vertebral artery pre-PICA which is moderate to severely narrowed and has progressed in the interim. The bilateral PICA, basilar artery, bilateral superior cerebellar arteries, bilateral JUVENILE OFFICER are patent. The bilateral ACAs and their distal branches are patent. The bilateral MCAs and their distal branches are patent. The dural venous sinuses are patent. The neck soft tissue structures show no significant interval abnormality. Emphysematous lung disease is seen. Cervical spine degenerative disease is noted. There is degenerative grade 1 anterolisthesis of C3 on C4 and C7 on T1. There is C1-C4 posterior spinal fusion hardware seen with C2-C3 laminectomies. 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 IMPRESSION: 1: There is interval development of a short segment of vascular occlusion involving the distal cervical left vertebral artery beginning at the C2 vertebral body level and is reconstituted at the level of the skull base. There is also progression of decreased caliber of the intra-dural left vertebral artery with moderate to severe areas of stenosis noted. 2: There is progression of moderate stenosis of the proximal cervical left ICA. 3: Again seen, chronic type II odontoid process fracture with progression of cortication of the fracture margins. There is stable leftward displacement of the odontoid process fracture in relation to the C2 vertebra. 4: Stable CT scan of the brain with no evidence of acute intracranial process. [facility] report did not mention interval occlusion of the distal cervical left vertebral artery and intracranial stenotic findings of the left vertebral artery.. Otherwise I agree wrist MRI report Results of this report discussed with Dr. Guthrie via the telephone on 12/26/2019 at 0715 hours Dictated on workstation # [id number] Dict: 12/26/19 0701 Trans: 12/26/19 0730 [facility] [id number] Interpreted by: KENNEY NELSON MD Electronically signed by: (VANESSA GUTHRIE MD) Departure Impression Primary Impression: TRANSIENT SLURRED SPEECH Additional Impressions: Vertebral artery stenosis Qualified Codes: I65.02 - Occlusion and stenosis of left vertebral artery Vertebral artery occlusion Qualified Codes: I65.02 - Occlusion and stenosis of left vertebral artery Disposition: 01 HOME, SELF-CARE Condition: Improved Departure-Patient Inst. Referrals: AMANDEEP GENAO DO (PCP/Family) Primary Care Physician Patient Instructions: Dysarthria Add. Discharge Instructions: CONTINUE YOUR CURRENT MEDICATIONS PRESCRIBED FOLLOW UP WITH DR. GENAO ON FRIDAY SCHEDULED Scripts Clopidogrel Bisulfate (Clopidogrel) 75 Mg Tablet 75 MG PO DAILY for 30 Days, #30 TAB 0 Refills Prov: VANESSA GUTHRIE MD 12/26/19 Copy Copies To 1: AMANDEEP GENAO LISA K DO Dec 26, 2019 04:01 VANESSA GUTHRIE MD Dec 26, 2019 07:56
[2019-12-26 04:03] LABS: BILIRUBIN,URINE NEGATIVE (NEGATIVE); CLARITY,URINE CLEAR; COLOR,URINE YELLOW; GLUCOSE, URINE (UA) NEGATIVE (NEGATIVE); KETONES,URINE NEGATIVE (NEGATIVE); LEUKOCYTE ESTERASE ,URINE TRACE (NEGATIVE); NITRITE,URINE NEGATIVE (NEGATIVE); PROTEIN,URINE NEGATIVE (NEGATIVE)
[2019-12-26 04:16] LABS: CHLORIDE 92 MMOL/L (98-107); POTASSIUM 4.3 MMOL/L (3.6-5.0); SODIUM 130 MMOL/L (135-145)
[2019-12-26 04:17] LABS: ALBUMIN 3.7 GM/DL (3.2-4.5)
[2019-12-26 04:18] LABS: AMYLASE 18 U/L (25-125); CALCIUM 8.7 MG/DL (8.5-10.1)
[2019-12-26 04:19] LABS: GLUCOSE 103 MG/DL (70-105); TOTAL PROTEIN 6.7 GM/DL (6.4-8.2)
[2019-12-26 04:19] LABS: BACTERIA,URINE TRACE /HPF; SQUAMOUS EPITHELIAL CELL,UR 0-2 /HPF; WBC,URINE RARE /HPF
[2019-12-26 04:20] LABS: CARBON DIOXIDE 29 MMOL/L (21-32)
[2019-12-26 04:21] LABS: BILIRUBIN,TOTAL 0.2 MG/DL (0.1-1.0)
[2019-12-26 04:23] LABS: ALKALINE PHOSPHATASE 180 U/L (40-136); GFR ESTIMATED > 60
[2019-12-26 04:24] LABS: BUN/CREATININE RATIO 10
[2019-12-26 04:26] LABS: ALANINE AMINOTRANSFERASE 8 U/L (0-55); MAGNESIUM 1.8 MG/DL (1.6-2.4)
[2019-12-26 04:32] LABS: PROTHROMBIN TIME PATIENT 13.1 SEC (12.2-14.7)
[2019-12-26 04:46] LABS: ACETAMINOPHEN < 10 UG/ML (10-30)
[2019-12-26 04:57] LABS: AMPHETAMINE SCREEN, URINE NEGATIVE (NEGATIVE); BARBITURATE SCREEN URINE POSITIVE (NEGATIVE); BENZODIAZEPINES SCREEN URINE NEGATIVE (NEGATIVE); CANNABINOID SCREEN, URINE NEGATIVE (NEGATIVE); COCAINE SCREEN URINE NEGATIVE (NEGATIVE); METHADONE STAT NEGATIVE (NEGATIVE); METHAMPHETAMINE SCREEN URINE S NEGATIVE (NEGATIVE); OPIATE SCREEN URINE POSITIVE (NEGATIVE); OXYCODONE STAT NEGATIVE (NEGATIVE); PROPOXYPHENE STAT NEGATIVE (NEGATIVE); TRICYCLIC ANTIDEPRESSANTS SCRE NEGATIVE (NEGATIVE)
[2019-12-26 06:20] VITALS: BP 184/94
--- NOTE | 2019-12-26 06:20 | Diagnostic Imaging Report ---
Clinical indication: Patient with difficulty swallowing and talking. Exam: Axial CT scan of the brain without IV contrast with coronal and sagittal reformatted images. Auto Exposure Controls were utilized during the CT exam to meet ALARA standards for radiation dose reduction. Comparison: Head CT without contrast dated 12/24/2019. Findings: There is no evidence of acute cerebral infarct, intracranial hemorrhage, or gross mass effect. Stable decreased gyration of the right cerebral hemisphere and enlargement of the right lateral ventricle which may be congenital. There is normal murphy-white matter distinction. There is no significant midline shift or herniation. There is no evidence of hydrocephalus. The basal cisterns are unremarkable. The skull, extracranial soft tissue, and orbits are unremarkable. There is minimal mucosal thickening involving left maxillary sinus and ethmoid sinus. There is large amounts of fluid in the left mastoid air cells which is also noted on the prior study. The remainder of this exam shows no significant interval change compared to the prior study of comparison. Impression: Stable CT scan of brain with no evidence of interval acute intracranial process. I agree with [facility] report. Dictated by: Dictated on workstation # [id number]
--- NOTE | 2019-12-26 07:30 | Diagnostic Imaging Report ---
Clinical Indication: Patient with slurred speech. Patient has history of lung cancer. Patient has difficulty swallowing and talking. Exams: 1: Head CT with IV contrast. Auto Exposure Controls were utilized during the CT exam to meet ALARA standards for radiation dose reduction. 2: CT angiogram of the head and neck performed with 100 cc of Omnipaque 350 IV contrast. Sagittal and coronal MIP reformations were created for better visualization of vascular anatomy. Comparison: CT angiogram of the head/neck dated 03/16/2018. Findings: Head CT: Stable appearance of the head CT with no evidence of interval acute intracranial process. There is no abnormal IV contrast enhancement. Stable decreased gyration of the right cerebral hemisphere and prominence of the right lateral ventricle which may be related to congenital findings. There is no hydrocephalus, brain herniation or midline shift. Extracranial soft tissues, skull, and orbits are unremarkable. Paranasal sinuses are clear. Large amounts of fluid in left mastoid air cells are again seen. CT Angiogram: Four-vessel aortic arch is seen with the left vertebral artery arising from the aortic arch. There is streaky motion artifact limiting evaluation of the proximal to mid left subclavian artery. Unable to evaluate if there is any significant stenosis in the region. There was no significant abnormality in this region on the prior CT angiogram. Otherwise, the bilateral subclavian arteries, brachiocephalic artery, right common carotid artery, and left common carotid arteries are patent. There is tortuosity of the proximal left cervical ICA. There is moderate stenosis of the proximal cervical left ICA which has slightly progressed in interim. The remainder of the cervical left ICA shows no significant stenosis. The left ECA is patent. The cervical right ICA shows mild stenosis of the proximal cervical right ICA. The remainder of the cervical right ICA is patent. There is atherosclerotic disease of the bilateral cavernous and supraclinoid ICA. There are mild areas of narrowing involving the right supraclinoid ICA and bilateral cavernous carotid arteries. There is stable mild to moderate narrowing of the proximal cervical right vertebral artery. The remainder of the cervical right vertebral artery is patent. There is atherosclerotic disease of the proximal cervical left vertebral artery. The left cervical vertebral artery is small in caliber. There is interval progression of diffuse decreased caliber of the cervical left vertebral artery which is occluded at the level of the C2 vertebral body region. There are vascular structures extending out laterally into the neck soft tissue just prior to the occluded portion. There is reconstitution of the distal left cervical ICA at the level of the skull base which is small in size. There is also progression of narrowing of the intradural left vertebral artery pre-PICA which is moderate to severely narrowed and has progressed in the interim. The bilateral PICA, basilar artery, bilateral superior cerebellar arteries, bilateral METHODS ENGINEER are patent. The bilateral ACAs and their distal branches are patent. The bilateral MCAs and their distal branches are patent. The dural venous sinuses are patent. The neck soft tissue structures show no significant interval abnormality. Emphysematous lung disease is seen. Cervical spine degenerative disease is noted. There is degenerative grade 1 anterolisthesis of C3 on C4 and C7 on T1. There is C1-C4 posterior spinal fusion hardware seen with C2-C3 laminectomies. 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 IMPRESSION: 1: There is interval development of a short segment of vascular occlusion involving the distal cervical left vertebral artery beginning at the C2 vertebral body level and is reconstituted at the level of the skull base. There is also progression of decreased caliber of the intra-dural left vertebral artery with moderate to severe areas of stenosis noted. These findings are of unknown age. 2: There is progression of moderate stenosis of the proximal cervical left ICA. 3: Again seen, chronic type II odontoid process fracture with progression of cortication of the fracture margins. There is stable leftward displacement of the odontoid process fracture in relation to the C2 vertebra. 4: Stable CT scan of the brain with no evidence of acute intracranial process. [facility] report did not mention interval occlusion of the distal cervical left vertebral artery and intracranial stenotic findings of the left vertebral artery.. Otherwise I agree wrist MRI report Results of this report discussed with Dr. Jang via the telephone on 12/26/2019 at 0715 hours Dictated by: Dictated on workstation # [id number]
[2019-12-26] MEDS ORDERED: CLOP75TA28 PO (09:08)
[2019-12-27] MEDS ORDERED: AMLO5TAB9 PO (10:03)
[2019-12-27] MEDS ORDERED: ALBU18HF2 INH (10:31)
[2019-12-27] MEDS ORDERED: HYDR-3820 PO (10:31)
[2019-12-27] MEDS ORDERED: MELO7.5T46 PO (10:31)
[2019-12-27] MEDS ORDERED: ROPI0.5T4 PO (10:31)
[2019-12-27] MEDS ORDERED: FLUT1BLS12 INH (10:31)
== END 2019-12-26 06:20 | disposition home or self-care (01) ==
LOC: EDUNIT# 03:09 → ER 03:11
DX: R47.81 Slurred speech (principal); I65.02 Occlusion and stenosis of left vertebral artery; J44.9 Chronic obstructive pulmonary disease, unspecified; I10 Essential (primary) hypertension; G81.94 Hemiplegia, unspecified affecting left nondominant side; E78.00 Pure hypercholesterolemia, unspecified; G62.9 Polyneuropathy, unspecified; K21.9 Gastro-esophageal reflux disease without esophagitis; G40.909 Epilepsy, unspecified, not intractable, without status epilepticus; F17.290 Nicotine dependence, other tobacco product, uncomplicated; F17.210 Nicotine dependence, cigarettes, uncomplicated; Z85.830 Personal history of malignant neoplasm of bone; Z88.6 Allergy status to analgesic agent; Z88.5 Allergy status to narcotic agent; Z79.51 Long term (current) use of inhaled steroids; Z79.52 Long term (current) use of systemic steroids; Z85.118 Personal history of other malignant neoplasm of bronchus and lung; Z99.81 Dependence on supplemental oxygen; Z82.49 Family history of ischemic heart disease and other diseases of the circulatory system
CPT/HCPCS: 36415; 70450; 70496; 70498; 80053; 80306; 80320; 80329; 81000; 82150; 83735; 83874; 85025; 85610; 85730; 93005; 93041

== ENCOUNTER 2019-12-26 20:22 | Inpatient (IN) | payer MEDICARE, MEDICAID ==
[~2019-12-26] VITALS: Ht 182.9 cm; Wt 81.7 kg
[~2019-12-26 20:22] MED LIST changes: +CLOP75TA28 PO
[2019-12-26] MEDS ORDERED: CLOPIDOGREL 300 MG (PLAVIX) TABLET PO ONE (20:28)
[2019-12-26] MEDS ORDERED: CLOPIDOGREL 75 MG (PLAVIX) TABLET PO ONE (20:45)
--- NOTE | 2019-12-26 20:55 | ED General ---
General Chief Complaint: Dizziness/Syncope Stated Complaint: TRANSIENT SLURRED SPEECHVERTEBRAL ARTERY OCCLUSION Nursing Triage Note: PT HERE WITH DIZZINESS AND SOB; STATES HE WAS HERE LAST NIGHT WITH THE SAME CC. PT HAD A CT SCAN AT THAT TIME. PT WAS TOLD TO COME BACK IF ANYTHING WORSENED. Nursing Sepsis Screen: No Definite Risk Source of Information: Patient (LIMITED HISTORIAN), Old Records History of Present Illness Date Seen by Provider: Dec 26, 2019 Time Seen by Provider: 20:22 Initial Comments PT ARRIVES VIA POV FROM HOME--NEEDS WHEELCHAIR AND FULL 2 PERSON ASSIST WITH TRANSFER PT SEEN HERE THIS AM FOR TRANSIENT SLURRED SPEECH--SPONTANEOUSLY RESOLVED IN ER. WAS SEEN HERE 12/24/19 FOR SAME--PT HAD DECLINED ADMIT AT THE TIME OF THOSE VISITS. CT ANGIOGRAM OF HEAD/NECK OVER READ BY NO RADIOLOGIST REPORTED VERTEBRAL ARTERY OCCLUSION. PT WAS CONTACTED VERY EARLY THIS AM AND INFORMED PT OF TEST RESULT, AND WAS ADVISED TO RETURN TO ER IF SYMPTOMS WORSENED PT NOW REPORTS HE HAS BEEN A LITTLE DIZZY TODAY NO PROBLEMS WITH SPEECH OR WITH SWALLOWING SINCE HE LEFT ER, AND NO NEW NEUROLOGICAL DEFICITS. 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 PT DEVELOPED A NOSEBLEED AND WAS SEEN IN ER 11/29/19. PT HAS REFUSED TO TAKE XARELTO OR ANY BLOOD THINNERS SINCE THEN, PT ALSO REFUSES TO TAKE ASPIRIN--BECAUSE OF SEIZURE MEDICATIONS, PER PT. SEE CHART FROM EARLIER TODAY FOR DETAILS PT NOW AGREEABLE TO ADMIT PCP: DR. GENAO--HAS AN APPOINTMENT ON Friday12/27/28 FOR ROUTINE EXAM Allergies and Home Medications Allergies Coded Allergies: aspirin (Unverified Allergy, Mild, DOES NOT WORK WELL W/ OTHER MEDS, 09/20/19) ibuprofen (Unverified Allergy, Mild, 09/20/19) hydrocodone (Verified Adverse Reaction, Intermediate, BECOMES TOO SEDATED, 09/22/19) Home Medications Acetaminophen 500 Mg Tablet, 1,000 MG PO Q6H PRN for PAIN-MILD (1-4), (Reported) Albuterol Sulfate 2.5 Mg/3 Ml Vial.neb, 2.5 MG NEB Q4H PRN for SHORTNESS OF BREATH, (Reported) Albuterol Sulfate 1 Puff Puff, 2 PUFF IH Q6H PRN for SHORTNESS OF BREATH, (Reported) Amlodipine Besylate 10 Mg Tablet, 10 MG PO DAILY Prescribed by: KALEN LUZ on 09/03/19 194 Atorvastatin Calcium 20 Mg Tablet, 10 MG PO 0300, (Reported) TAKES OF A 20MG ONCE DAILY Carbamazepine 200 Mg Tablet, 200 MG PO 0300,0800,2300, (Reported) Carbamazepine 200 Mg Tablet, 400 MG PO 1500, (Reported) TAKES 2 (200 MG) TABLETS Cefuroxime Axetil 250 Mg Tablet, 250 MG PO BID Prescribed by: NOREEN CHÁVEZ on 11/06/19 184 Cefuroxime Axetil 500 Mg Tablet, 500 MG PO BID Prescribed by: CHUNG DOTY on 11/29/192036 Clopidogrel Bisulfate 75 Mg Tablet, 75 MG PO DAILY Prescribed by: VANESSA GUTHRIE on 12/26/19 0908 Fluticasone/Salmeterol 12 Gm Hfa.aer.ad, 1 PUFF IH BID, (Reported) Gabapentin 600 Mg Tablet, 600 MG PO 0800,1500, (Reported) Gabapentin 300 Mg Capsule, 300 MG PO 2300, (Reported) Lamotrigine 25 Mg Tablet, 25 MG PO 0300, 1500, (Reported) TAKES 25MG @ 0300 25MG + 100MG @1500 Lamotrigine 100 Mg Tablet, 100 MG PO 2300, (Reported) Meloxicam 15 Mg Tablet, 15 MG PO 1500, (Reported) Omeprazole 20 Mg Capsule.dr, 20 MG PO DAILY PRN for HEARTBURN, (Reported) Oxycodone HCl/Acetaminophen 1 Each Tablet, 1 EACH PO Q4H PRN for PAIN-SEVERE Prescribed by: FAVIAN BALL on 09/22/19 1209 Phenytoin Sodium Extended 100 Mg Capsule, 200 MG PO 1500, (Reported) TAKES 2 (100 MG) CAPSULES Phenytoin Sodium Extended 100 Mg Capsule, 100 MG PO 0800,2300, (Reported) TAKES 100MG @ 0800 & 2300 Prednisone 20 Mg Tab, 40 MG PO DAILY Prescribed by: NOREEN CHÁVEZ on 11/06/19 337 Ropinirole HCl 0.5 Mg Tablet, 0.5 MG PO 1500, (Reported) Tiotropium [place] 1 Inh Aerp, 1 CAP IH 1500, (Reported) Zinc Oxide 57 Gm Oint...g., 1 APPLIC TP EVERY 3 HOURS PRN for RASH, (Reported) Patient Home Medication List Home Medication List Reviewed: Yes Review of Systems Review of Systems Constitutional: No chills, No diaphoresis; dizziness; No fever EENTM: no symptoms reported Respiratory: see HPI Cardiovascular: No chest pain, No edema, No palpitations, No syncope Gastrointestinal: no symptoms reported; No abdominal pain, No nausea, No vomiting Genitourinary: no symptoms reported Musculoskeletal: other (LEFT FOOT IN BOOT FROM FRACTURE SEVERAL MONTHS AGO--NON-HEALING) Skin: no symptoms reported Psychiatric/Neurological: Denies Headache; Pre-Existing Deficit (LEFT SIDE PARTIAL PARALYSIS/POST-POLIO SYNDROME) Past Kaktjxe-Xavxgt-[id number] Hx Past Med/Social Hx: Reviewed and Corrections made Patient Social History Alcohol Use: Past History Recreational Drug Use: Yes Drug of Choice: HX OF RX DRUG ABUSE, CLAIMS NONE 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 Smoking Status: Current Everyday Smoker Type Used: Cigars, Cigarettes 2nd Hand Smoke Exposure: Yes Recent Foreign Travel: No Contact w/Someone Who Travel: No Recent Infectious Disease Expo: No Recent Hopitalizations: No Immunizations Up To Date Tetanus Booster (TDap): Less than 5yrs PED Vaccines UTD: Yes Date of Influenza Vaccine: Apr 21, 2018 Seasonal Allergies Seasonal Allergies: Yes Past Medical History Surgeries: Yes (C-SPINE SURGERY FOR FX; LEFT LOWER LEG SURGERY 10/2019) Eye Surgery, Gallbladder, Orthopedic Respiratory: Yes (O2 AT 4L/NC CONTINUOUSLY) Asthma, Pneumonia, Chronic Bronchitis, Sleep Apnea, COPD Currently Using CPAP: No Currently Using BIPAP: No Cardiac: Yes Heart Murmur, High Cholesterol, Hypertension, Valvular Heart Disease 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) Neuropathy, Seizure Disorder, Vertigo Reproductive Disorders: No Sexually Transmitted Disease: No HIV/AIDS: No Genitourinary: No Gastrointestinal: Yes Gastroesophageal Reflux Musculoskeletal: Yes (HX C-SPINE FX/NON-UNION OF ODONTOID; FALLS;POST POLIO-L SIDE WEAKNESS/CONTR) Arthritis, Fractures, Contracture Endocrine: No HEENT: Yes (DENTURES) Loss of Vision: Denies Hearing Impairment: Denies Cancer: Yes Bone, Lung Did You Recieve Any Treatments: Yes What Type of Treatment Did You: Chemotherapy Psychosocial: No Integumentary: No Blood Disorders: No Adverse Reaction/Blood Tranf: No Family Medical History Diabetes mellitus 19 MOTHER Hypercholesterolemia 19 FATHER Hypertension 19 FATHER Heart Disease Physical Exam Vital Signs Vital Signs - First Documented 12/26/19 12/26/19 20:30 20:56 Temp 37.0 Pulse 70 Resp 16 B/P (MAP) 169/91 (117) Pulse Ox 99 O2 Delivery Nasal Cannula O2 Flow Rate 4.00 Capillary Refill : Less Than 3 Seconds Height, Weight, BMI Height: 6'0" Weight: 174lbs. 3.0oz. [id number]; 22.00 BMI Method:Stated General Appearance: Other (DYSPNEIC ON ARRIVAL, 2 PERSON /FULL ASSIST WITH TRANSFER FROM WHEELCHAIR TO ER CART. DYSPNEA IMPROVED AT REST. POOR POSTURE, HEAD/BODY LEANING TO LEFT, NECK SLIGHTLY FLEXED. ) Respiratory: Rales (FAINT RALES IN BASES), Other ( ABOVE) Cardiovascular: Regular Rate, Rhythm, Systolic Murmur (3/6) Gastrointestinal: Non Tender, Soft Extremity: Other (LEFT FOOT AND LOWER LEG IN BOOT--EXTERNALLY ROTATED APPROXIMATELY 90 DEGREES. FEET PINK AND WARM BILATERALLY. ) Neurologic/Psychiatric: Alert, Oriented x3, Other (SPEECH IS CLEAR, NO FACIAL DROOP, TONGUE MIDLINE. CHRONIC LEFT SIDE PARTIAL PARALYSIS AND CON TRACTURES--NORMAL BASELINE. NO NEW FOCAL DEFICITS. ) Skin: Normal Color, Warm/Dry Procedures/Interventions Date of ETT Placement: Mar 09, 2017 Time of ETT Placement: 1811 Suture Size: 5-0 Progress/Results/Core Measures Suspected Sepsis Recent Fever Within 48 Hours: No Infection Criteria Present: None New/Unexplained Altered Menta: No Sepsis Screen: No Definite Risk SIRS Temperature: Pulse: 70 Respiratory Rate: 16 Laboratory Tests 12/26/19 20:48: White Blood Count 6.2 12/27/19 05:23: White Blood Count 4.0L Blood Pressure 169 /91 Mean: 117 Laboratory Tests 12/26/19 20:48: Creatinine 0.71, INR Comment 1.0, Platelet Count 251, Total Bilirubin 0.2 9/28/20 05:23: Creatinine 0.67, Platelet Count 239, Total Bilirubin 0.2 Results/Orders Lab Results Laboratory Tests Test 12/26/19 20:48 12/27/19 05:23 Range/Units White Blood Count 6.2 4.0 L 4.3-11.0 10^3/uL Red Blood Count 3.53 L 3.27 L 4.30-5.52 10^6/uL Hemoglobin 9.5 L 8.8 L 13.3-17.7 g/dL Hematocrit 29 L 27 L 40-54 % Mean Corpuscular Volume 83 83 80-99 fL Mean Corpuscular Hemoglobin 27 27 25-34 pg Mean Corpuscular Hemoglobin Concent 32 33 32-36 g/dL Red Cell Distribution Width 14.6 H 14.6 H 10.0-14.5 % Platelet Count 251 239 130-400 10^3/uL Mean Platelet Volume 8.9 L 9.2 9.0-12.2 fL Immature Granulocyte % (Auto) 1 1 % Neutrophils (%) (Auto) 76 H 64 42-75 % Lymphocytes (%) (Auto) 11 L 19 12-44 % Monocytes (%) (Auto) 13 H 17 H 0-12 % Eosinophils (%) (Auto) 0 0 0-10 % Basophils (%) (Auto) 0 0 0-10 % Neutrophils # (Auto) 4.7 2.5 1.8-7.8 10^3/uL Lymphocytes # (Auto) 0.7 L 0.8 L 1.0-4.0 10^3/uL Monocytes # (Auto) 0.8 0.7 0.0-1.0 10^3/uL Eosinophils # (Auto) 0.0 0.0 0.0-0.3 10^3/uL Basophils # (Auto) 0.0 0.0 0.0-0.1 10^3/uL Immature Granulocyte # (Auto) 0.0 0.0 0.0-0.1 10^3/uL Prothrombin Time 13.4 12.2-14.7 SEC INR Comment 1.0 0.8-1.4 Activated Partial Thromboplast Time 41 H 24-35 SEC Sodium Level 131 L 131 L 135-145 MMOL/L Potassium Level 4.4 4.0 3.6-5.0 MMOL/L Chloride Level 95 L 95 L 98-107 MMOL/L Carbon Dioxide Level 28 29 21-32 MMOL/L Anion Gap 8 7 5-14 MMOL/L Blood Urea Nitrogen 10 8 7-18 MG/DL Creatinine 0.71 0.67 0.60-1.30 MG/DL Estimat Glomerular Filtration Rate > 60 > 60 BUN/Creatinine Ratio 14 12 Glucose Level 119 H 92 70-105 MG/DL Calcium Level 8.2 L 8.1 L 8.5-10.1 MG/DL Corrected Calcium 8.4 L 8.6 8.5-10.1 MG/DL Magnesium Level 1.7 1.6-2.4 MG/DL Total Bilirubin 0.2 0.2 0.1-1.0 MG/DL Aspartate Amino Transf (AST/SGOT) 12 10 5-34 U/L Alanine Aminotransferase (ALT/SGPT) 8 6 0-55 U/L Alkaline Phosphatase 176 H 175 H 40-136 U/L Total Protein 6.6 6.1 L 6.4-8.2 GM/DL Albumin 3.7 3.4 3.2-4.5 GM/DL Carbamazepine (Tegretol) Level 9.1 4.0-12.0 UG/ML My Orders Orders - CHUNG DOTY DO Clopidogrel Tablet (Plavix Tablet) (12/26/19 20:45) Clopidogrel Tablet (Plavix Tablet) (12/26/19 20:28) Ed Iv/Invasive Line Start (12/26/19 20:47) O2 (12/26/19 20:47) Monitor-Rhythm Ecg Trace Only (12/26/19 20:47) Carbamazepine (Tegretol) (12/26/19 20:47) Cbc With Automated Diff (12/26/19 20:47) Comprehensive Metabolic Panel (12/26/19 20:47) Dilantin (Phenytoin) (12/26/19 20:47) Magnesium (12/26/19 20:47) Protime With Inr (12/26/19 20:47) Partial Thromboplastin Time (12/26/19 20:47) Medications Given in ED Current Medications Medications Dose Ordered Sig/Porfirio Route Start Time Stop Time Status Last Admin Dose Admin Clopidogrel Bisulfate 300 mg STK-MED ONCE PO 12/26/19 20:28 12/26/19 20:33 DC 12/26/19 20:36 300 MG Vital Signs/I&O 12/26/19 12/26/19 12/26/19 12/26/19 20:30 20:56 21:40 21:40 Temp 37.0 Pulse 70 Resp 16 B/P (MAP) 169/91 (117) Pulse Ox 99 99 O2 Delivery Nasal Cannula Nasal Cannula Nasal Cannula Nasal Cannula O2 Flow Rate 4.00 4.00 4.00 12/26/19 12/26/19 12/26/19 12/27/19 21:54 23:43 23:44 01:00 Temp 36.5 36.8 Pulse 65 60 61 56 Resp 16 16 B/P (MAP) 139/75 136/70 (92) Pulse Ox 99 98 O2 Delivery Nasal Cannula Nasal Cannula O2 Flow Rate 4.00 4.00 12/27/19 03:17 Temp 36.5 Pulse 61 Resp 21 B/P (MAP) 133/63 (86) Pulse Ox 96 O2 Delivery Nasal Cannula O2 Flow Rate 4.00 Capillary Refill : Less Than 3 Seconds Blood Pressure Mean: 117 Progress Note : Progress Note UNEVENTFUL ER STAY Departure Communication (Admissions) 2024--DISCUSSED WITH DR. OWUSU ( HERE IN DEPT FOR ANOTHER PATIENT) ACCEPTS PT FOR ADMIT. Impression Primary Impression: Transient slurred speach Additional Impressions: Vertebral artery occlusion Vertebral artery stenosis Disposition: ADMITTED INPATIENT Condition: Stable Admissions Decision to Admit Reason: Admit from ER (General) Decision to Admit/Date: Dec 26, 2019 Time/Decision to Admit Time: 20:25 Departure-Patient Inst. Referrals: AMANDEEP GENAO DO (PCP/Family) Primary Care Physician CHUNG DOTY DO Dec 26, 2019 20:55
[2019-12-26 21:01] LABS: BASOPHILS % (AUTO) 0 % (0-10); EOSINOPHILS % (AUTO) 0 % (0-10); HEMATOCRIT 29 % (40-54); HEMOGLOBIN 9.5 g/dL (13.3-17.7); LYMPHOCYTES # (AUTO) 0.7 10^3/uL (1.0-4.0); LYMPHOCYTES % (AUTO) 11 % (12-44); MEAN CORPUSCULAR HEMOGLOBIN 27 pg (25-34); MEAN CORPUSCULAR HGB CONC 32 g/dL (32-36); MEAN CORPUSCULAR VOLUME 83 fL (80-99); MEAN PLATELET VOLUME 8.9 fL (9.0-12.2); MONOCYTES # (AUTO) 0.8 10^3/uL (0.0-1.0); MONOCYTES % (AUTO) 13 % (0-12); NEUTROPHILS # (AUTO) 4.7 10^3/uL (1.8-7.8); NEUTROPHILS % (AUTO) 76 % (42-75); PLATELET COUNT 251 10^3/uL (130-400); WHITE BLOOD COUNT 6.2 10^3/uL (4.3-11.0)
[2019-12-26 21:14] LABS: ALBUMIN 3.7 GM/DL (3.2-4.5)
[2019-12-26 21:15] LABS: CHLORIDE 95 MMOL/L (98-107); POTASSIUM 4.4 MMOL/L (3.6-5.0); PROTHROMBIN TIME PATIENT 13.4 SEC (12.2-14.7); SODIUM 131 MMOL/L (135-145)
[2019-12-26 21:16] LABS: CALCIUM 8.2 MG/DL (8.5-10.1)
[2019-12-26 21:17] LABS: GLUCOSE 119 MG/DL (70-105); TOTAL PROTEIN 6.6 GM/DL (6.4-8.2)
[2019-12-26 21:18] LABS: CARBON DIOXIDE 28 MMOL/L (21-32)
[2019-12-26 21:19] LABS: BILIRUBIN,TOTAL 0.2 MG/DL (0.1-1.0)
--- NOTE | 2019-12-26 21:20 | NUR ---
TELEPHONE REPORT RECEIVED FROM ED AT THIS TIME.
[2019-12-26 21:21] LABS: ALKALINE PHOSPHATASE 176 U/L (40-136); CREATININE SERUM 0.71 MG/DL (0.60-1.30); GFR ESTIMATED > 60
[2019-12-26 21:22] LABS: BUN/CREATININE RATIO 14
[2019-12-26 21:23] LABS: MAGNESIUM 1.7 MG/DL (1.6-2.4)
[2019-12-26 21:24] LABS: ALANINE AMINOTRANSFERASE 8 U/L (0-55)
[2019-12-26 21:30] LABS: CARBAMAZEPINE (TEGRETOL) 9.1 UG/ML (4.0-12.0)
--- NOTE | 2019-12-26 21:40 | NUR ---
CR QUIJANO admitted to room 417-1, with an admitting diagnosis of TRANSIENT SLURRED SPEECH, VERTEBRAL ARTERY OCCLUSION, on 12/26/19 from ED via CART, accompanied by STAFF.CR QUIJANO introduced to surroundings, call light, bed controls, phone, TV, temperature control, lights, meal times, smoking policy, visitor policy, side rail policy, bathrooms and showers. Patient Rights given to patient in the handbook. CR QUIJANO verbalizes understanding that [facility] is not responsible for the loss or damage to any personal effects or valuables that are kept in the patients posession during their hospitalization. CR QUIJANO verbalizes understanding of Interdisciplinary Patient Education. Patient and/or family were informed about the Rapid Response Team and its purpose.
[2019-12-26 21:54] VITALS: BP 139/75
--- NOTE | 2019-12-26 22:50 | NUR ---
NOTIFIED DR. OWUSU TO RESTART A FEW HOME MEDICATIONS AT PT REQUEST: TEGRETOL 200 MG PO @ 0300, 0800, 2300 TEGRETOL 400 MG PO @ 1500 LAMICTAL 25 MG PO @ 0300 LAMICTAL 125 MG PO @ 1500 LAMICTAL 100 MG PO @ 2300 DILANTIN 100 MG PO @ 0800, 2300 DILANTIN 200 MG PO @ 1500 GABAPENTIN 600 MG PO @ 0800,1500 GABAPENTIN 300 MG PO @ 2300 ORDERS RECEIVED TO START ABOVE MEDICATIONS.
[2019-12-26] MEDS ORDERED: NS IV 1000 ML 1,000 ML ONE (23:28)
[2019-12-26] MEDS: NS IV 1000 ML 1,000 ML IV SCH (23:30)
[2019-12-26 23:44] VITALS: BP 136/70
[2019-12-27] VITALS (8 sets, daily range): BP systolic 133–169; BP diastolic 63–91
[2019-12-27] MEDS: PHENYTOIN 100 MG (DILANTIN) CAP PO SCH ×3 (00:07→23:19)
[2019-12-27] MEDS: GABAPENTIN 300 MG (NEURONTIN) CAP PO SCH ×2 (00:07→23:18)
[2019-12-27] MEDS: carBAMazepine 200 MG (TEGretol) TAB PO SCH ×4 (00:07→23:19)
[2019-12-27] MEDS: lamoTRIgine 25 MG (LaMICtal) TAB PO SCH (03:19)
[2019-12-27 06:10] LABS: BASOPHILS % (AUTO) 0 % (0-10); EOSINOPHILS % (AUTO) 0 % (0-10); HEMATOCRIT 27 % (40-54); HEMOGLOBIN 8.8 g/dL (13.3-17.7); LYMPHOCYTES # (AUTO) 0.8 10^3/uL (1.0-4.0); LYMPHOCYTES % (AUTO) 19 % (12-44); MEAN CORPUSCULAR HEMOGLOBIN 27 pg (25-34); MEAN CORPUSCULAR HGB CONC 33 g/dL (32-36); MEAN CORPUSCULAR VOLUME 83 fL (80-99); MEAN PLATELET VOLUME 9.2 fL (9.0-12.2); MONOCYTES # (AUTO) 0.7 10^3/uL (0.0-1.0); MONOCYTES % (AUTO) 17 % (0-12); NEUTROPHILS # (AUTO) 2.5 10^3/uL (1.8-7.8); NEUTROPHILS % (AUTO) 64 % (42-75); PLATELET COUNT 239 10^3/uL (130-400)
[2019-12-27 06:34] LABS: ALANINE AMINOTRANSFERASE 6 U/L (0-55); ALBUMIN 3.4 GM/DL (3.2-4.5); ALKALINE PHOSPHATASE 175 U/L (40-136); BILIRUBIN,TOTAL 0.2 MG/DL (0.1-1.0); BUN/CREATININE RATIO 12; CALCIUM 8.1 MG/DL (8.5-10.1); CARBON DIOXIDE 29 MMOL/L (21-32); CHLORIDE 95 MMOL/L (98-107); CREATININE SERUM 0.67 MG/DL (0.60-1.30); GFR ESTIMATED > 60; GLUCOSE 92 MG/DL (70-105); SODIUM 131 MMOL/L (135-145); TOTAL PROTEIN 6.1 GM/DL (6.4-8.2)
--- NOTE | 2019-12-27 07:12 | Diagnostic Imaging Report ---
EXAMINATION: Chest 1 view HISTORY: Vertebral artery occlusion COMPARISON: 12/24/2019 FINDINGS: Right port catheter tip terminates in the superior vena cava. There is unchanged atelectasis in the right lung base. Tiny left pleural effusion is seen. No pneumothorax. Heart size is normal. 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 IMPRESSION: 1. Unchanged right base atelectasis and tiny left pleural effusion. Dictated by: Dictated on workstation # [id number]
[2019-12-27] MEDS: CLOPIDOGREL 75 MG (PLAVIX) TABLET PO SCH (08:44)
[2019-12-27] MEDS: GABAPENTIN 600 MG (NEURONTIN) TAB PO SCH ×2 (08:44→16:12)
[2019-12-27] MEDS ORDERED: AMLO5TAB9 PO (10:03)
--- NOTE | 2019-12-27 10:13 | Physical Therapy Evaluation ---
PT Evaluation-General Medical Diagnosis Admission Date Dec 26, 2019 at 20:45 Medical Diagnosis: vertebral artery occlusion/transient sluffed speech Onset Date: Dec 26, 2019 Therapy Diagnosis Therapy Diagnosis: debility Height/Weight Height (Feet): 6 Height (Inches): 0 Weight (Pounds): 174 Weight (Ounces): 3.0 Precautions Precautions/Isolations: Fall Prevention (refuses gait belt use), Standard Precautions Referral Physician: Rangel Reason for Referral: Evaluation/Treatment Medical History Pertinent Medical History: Atrial Fib, Arthritis, COPD, Heart Failure, HTN, Neuropathy, Post Polio Syndrome, Smoking Additional Medical History 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 6-Lzmmltcixr-koekmzq completes the activity by him/herself with no assistance from a helper. 5-Set-up or Clean-up Assistance-helper sets up or cleans up; patient completes activity. [place] assists only prior to or following the activity. 4-Supervision or Touching Assistance-helper provides verbal cues and/or touching/steadying and/or contact guard assistance as patient completes activity . Assistance may be provided throughout the activity or intermittently. 3-Partial/Moderate Assistance-helper does LESS THAN HALF the effort. [place] lifts, holds or supports trunk or limbs, but provides less than half the effort. 2-Substantial/Maximal Assistance-helper does MORE THAN HALF the effort. [place] lifts or holds trunk or limbs and provides more than half the effort. 8-Twogpzelf-ygfuyx does ALL the effort. Patient does none of the effort to complete the activity. Or, the assistance of 2 or more helpers is required for the patient to complete the activity. If activity was not attempted, code reason: 7-Patient Refused. 9-Not Applicable-not attempted and the patient did not perform the activity before the current illness, exacerbation or injury. 10-Not Attempted due to Environmental Limitations-(lack of equipment, weather restraints, etc.). 88-Not Attempted due to Medical Conditions or Safety Concerns. Bed Mobility: 6 Transfers (B,C,W/C): 4 Gait: 9 Stairs: 9 Indoor Mobility (Ambulation): Not Applicalbe patient reports he hasn't ambulated x 6 months PT Evaluation-Current Subjective Agrees to PT, but declined gait belt use for safe mobility. PT attempted to educate patient and was told to "shut up". Objective Patient Orientation: Normal For Age Attachments: Oxygen, IV ROM/Strength ROM Lower Extremities left foot severe ER/eversion due to nonhealing fracture and post polio syndrome/right LE WFL Strength Lower Extremities right LE 4/5 grossly/ left LE 3-/5 Integumentary/Posture Integumentary refer to nursing notes Bowel Incontinence: No Bladder Incontinence: No Posture WFL Neuromuscular (Tone, Coordination, Reflexes) left post polio syndrome Sensory Vision: Functional Hearing: Functional Sensation Right Lower Extremit: Impaired Sensation Left Lower Extremity: Impaired Transfers Roll Left to Right (QC): 6 Sit to Lying (QC): 6 Lying to Sitting/Side of Bed(Q: 6 Sit to Stand (QC): 3 (x 2 due to patient demanding 2 people and refusing gait belt) Gait Does the Patient Walk?: No and Walking Goal NOT indicated Balance Sitting Static: Normal Sitting Dynamic: Normal Standing Static: Fair Standing Dynamic: Fair Assessment/Needs 64 y.o. male, will be seen short term by skilled PT to address functional strength and transfer training. Patient has CAM boot for left LE due to nonhealing fracture. Rehab Potential: Fair PT Clean Up Worker Goals Correction Goals PT Clean Up Worker Goals Time Frame: Jan 05, 2020 Roll Left & Right (QC): 6 Sit to Lying (QC): 6 Lying-Sitting on Side/Bed(QC): 6 Sit to Stand (QC): 6 Chair/Jlc-wy-Nlrdf Xfer(QC): 5 PT Plan Problem List Problem List: Activity Tolerance, Functional Strength, Safety, Balance, Transfer Treatment/Plan Treatment Plan: Continue Plan of Care Treatment Plan: Education, Functional Activity Jessica, Functional Strength, Gait, Safety, Therapeutic Exercise, Transfers Treatment Duration: Jan 05, 2020 Frequency: 5 times per week Estimated Hrs Per Day: .25 hour per day Discharge Recommendations Therapy Discharge Recommendati: Home & Family (girlfriend works for [employer]) Time/GCodes Time In: 825 Time Out: 844 Total Billed Treatment Time: 19 Total Billed Treatment 1 visit EVMod 19 min LAVON LAMAS PT Dec 27, 2019 10:13
[2019-12-27] MEDS ORDERED: HYDR-3820 PO (10:31)
[2019-12-27] MEDS ORDERED: FLUT1BLS12 INH (10:31)
[2019-12-27] MEDS ORDERED: ALBU18HF2 INH (10:31)
[2019-12-27] MEDS ORDERED: ROPI0.5T4 PO (10:31)
[2019-12-27] MEDS ORDERED: MELO7.5T46 PO (10:31)
[2019-12-27] MEDS ORDERED: amLODIPine 5 MG (NORVASC) TAB PO ONE (11:00)
--- NOTE | 2019-12-27 11:53 | Diagnostic Imaging Report ---
PROCEDURE: US carotid duplex, bilateral. TECHNIQUE: Multiple Real-time grayscale images were obtained over the carotid arteries in various projections bilaterally. Additional spectral analysis and color Doppler duplex images were also obtained. INDICATION: Occlusion of the left vertebral artery. COMPARISON: There are no prior ultrasound examinations available for comparison. FINDINGS: The CTA head and neck exam of 12/26/2019 failed to show any sign of a hemodynamically significant stenosis of either carotid system; however, there was a short segment of vascular occlusion involving the distal cervical left vertebral artery. On this exam, there is arterial blood flow in the proximal left vertebral artery; however, the distal left vertebral artery could not be well visualized. Furthermore, the left carotid system could not be imaged distal to the distal common carotid artery. Reportedly, the patient was unable to move his head so that those vessels could be imaged. There is atherosclerotic plaque involving the right carotid system but there is no hemodynamically significant stenosis noted. There is antegrade flow in the right vertebral artery. IMPRESSION: 1. The left internal and external carotid arteries and the distal half of the left vertebral artery were not well-visualized on this exam. 2. There is atherosclerotic disease involving the right carotid system but there is no hemodynamically significant stenosis identified. There is antegrade flow in the right vertebral artery. Parameters based on the consensus panel Coughlin-Scale and Doppler ultrasound criteria published January 2003, Radiology, Volume 229. DOPPLER (peak systolic velocity M/S Right Left CCA .86 1.24 ICA Proximal .89 NA ICA Mid .89 NA ICA Distal 1.1 NA RATIO 1.3 NA ECA 1.30 NA VERT .63 NA Dictated by: Dictated on workstation # [id number]
--- NOTE | 2019-12-27 13:57 | Speech Therapy Progress Note ---
Therapy Progress Note ST follow up on orders received for speech production with patient noted to have no speech difficulty. Patient states his speech is "in and out". ST to follow up tomorrow for speech production and indication if speech therapy is warranted. At this time patient's speech is within normal range of function for normal speech. MIGUEL SANTOS Dec 27, 2019 13:57
--- NOTE | 2019-12-27 14:23 | Occupational Therapy Eval ---
OT Evaluation-General/PLF Medical Diagnosis Admission Date Dec 26, 2019 at 20:45 Medical Diagnosis: vertebral artery occlusion/transient slurred speech Onset Date: Dec 26, 2019 Therapy Diagnosis Therapy Diagnosis: Weakness Height/Weight Height (Feet): 6 Height (Inches): 0 Weight (Pounds): 174 Weight (Ounces): 3.0 Precautions Precautions/Isolations: Fall Prevention, Standard Precautions Referral Physician: Rangel Referral Reason: Activity Tolerance, Self Care, Evaluation/Treatment, Strengthening/ROM Medical History Pertinent Medical History: Atrial Fib, Arthritis, COPD, Heart Failure, HTN, Neuropathy, Post Polio Syndrome, Smoking Additional Medical History Left side weakness s/p Post polio syndrome, metastatic lung CA with mets to bone, non-healing ankle fx left ankle, boot on left LE when UP. Recent neck surgery (approximately 4 months) s/p fx vertebrae after falling. Current History Pt. came to ER with dizziness and slurred speech. Found to have occluded vertebral artery. Reviewed History: Yes Social History Home: Single Level Current Living Status: Significant Other Entry Into Home: Level Entry ADL-Prior Level of Function SCALE: Activities may be completed with or without assistive devices. 7-Tnitqciigw-zptvluj completes the activity by him/herself with no assistance from a helper. 5-Set-up or Clean-up Assistance-helper sets up or cleans up; patient completes activity. [place] assists only prior to or following the activity. 4-Supervision or Touching Assistance-helper provides verbal cues and/or touching/steadying and/or contact guard assistance as patient completes activity. Assistance may be provided throughout the activity or intermittently. 3-Partial/Moderate Assistance-helper does LESS THAN HALF the effort. [place] lifts, holds or supports trunk or limbs, but provides less than half the effort. 2-Substantial/Maximal Assistance-helper does MORE THAN HALF the effort. [place] lifts or holds trunk or limbs and provides more than half the effort. 3-Bkpbiwywi-juczhu does ALL the effort. Patient does none of the effort to complete the activity. Or, the assistance of 2 or more helpers is required for the patient to complete the activity. If activity was not attempted, code reason: 7-Patient Refused. 9-Not Applicable-not attempted and the patient did not perform the activity before the current illness, exacerbation or injury. 10-Not Attempted due to Environmental Limitations-(lack of equipment, weather restraints, etc.). 88-Not Attempted due to Medical Conditions or Safety Concerns. ADL PLOF Comments Pt. states that his girlfriend and his daughter help him at home. They have assisted for awhile. Pt. is somewhat inconsistent with prior level. Will state that he stands with walker, and puts weight on left LE, but then states, "I'm not supposed to." Pt. also reports that his left shoulder does not work well due to his girlfriend's daughter pulling on it to get him up. However, also notes that he has significant arthritis in it and also notes weakness from post polio syndrome. Self Care: Needed Some Help Functional Cognition: Independent DME/Equipment Comments It is not fully known what equipment pt. has. He does have a wheelchair and walker. OT Current Status Subjective Pt. reports pain in left shoulder when he attempts to raise it. Does not report pain level. Appearance Pt. in bed. Agrees to work with OT. Mental Status/Objective Patient Orientation: Person, Place Attachments: IV, Oxygen, Telemetry Current Hand Dominance: Right Upper Extremity ROM Pt. is able to actively flex right shoulder to approximately 90 degrees. Pt. is only able to flex left shoulder to approximately 20-30 degrees. Noted ulnar deviation in left wrist, and flexed pattern. Pt. is able to extend wrist to neutral and bring back to midline. Pt. only able to fully extend left elbow with PROM. Otherwise, elbow is flexed. Increased tone and rigid joints noted. Pt. unable to fully articulate if this is new, or from the Polio. Upper Extremity Coordination Intact right UE ADL-Treatment Eating (QC): 6 (Pt. had just finished lunch when OT came in room.) Oral Hygiene (QC): 7 On/Off Footwear (QC): 1 Pt. in bed. OT introduces self and pt. reports having issues in left shoulder. Assessed shoulder with joint compressions and gentle PROM. Shoulder able to passively range to approximately 50 degrees in flexion, with facilitated scapular glide. Noted irritation in crook of left arm, and applied dry washcloth to assist with moisture. Pt. demonstrates fixated lateral neck flexion to left. He states that approximately 4 months ago he fell and fx some vertebrae, and then had to have surgery for it. He states that the surgeon told him that this is the position it would be in. Due to complicated medical history and occluded vertebral artery, OT will not be assessing ROM in neck. Pt. agrees to transfer to side of bed. Transferred with increased time and SBA. Pt. attempts to brush hair but is unable to do so on left side, and so OT does this for him. Offered to assist pt. to brush his teeth but he does not want to. Pt. on 4 L 02. Noted what looked to be soiled pajama pants, (urine.) OT encourages pt. to take them off and put on clean gown. He declines and states that his girlfriend will be in later and will assist him. OT encourages pt. to transfer himself while seated, toward [facility], so that when he lays he will not be down in bed. OT uses foot to allow pt. to block his own foot on floor. Pt. pushes with right foot against OT's, and is able to scoot himself to HOB. Transferred sit-supine with SBA. OT engages pt. in conversation regarding what specifically he will have to be able to do to go home from a functional standpoint. Pt. is distracted, and does not fully understand question. States that he got some bad news today, and that he is now a DNR. It is unclear to this therapist what pt's awareness, or reality is in regards to his own physical abilities. It is also unclear as to how much and what his significant other and daughter can do for him, as he is insistent that they do everything right now for him. All needs are met. Will continue to address pt's abilities and goals as appropriate. Education OT Patient Education: Correct positioning, Modified ADL techniques, Progress toward Goal/Update tx plan, Purpose of tx/functional activities, Reviewed precautions, Rehab process, Transfer techniques Teaching Recipient: Patient Teaching Methods: Demonstration, Discussion Response to Teaching: Verbalize Understanding, Return Demonstration, Reinforcement Needed OT Short Term Goals Short Term Goals Time Frame: Jan 03, 2020 Eatin Oral hygiene: 4 Toileting hygiene: 3 OT Investigator Utility Bill Complaints Goals Investigator Utility Bill Complaints Goals Time Frame: Jan 10, 2020 Eating (QC): 6 Oral Hygiene (QC): 5 Toileting Hygiene (QC): 4 Upper Body Dressing (QC): 4 Lower Body Dressing (QC): 3 Additional Goals: 1-Demonstrate ADL Tasks, 2-Verbalize Understanding, 3- ImproveStrength/Jessica 1=Demonstrate adherence to instructed precautions during ADL tasks. 2=Patient will verbalize/demonstrate understanding of assistive devices/modifications for ADL. 3=Patient will improve strength/tolerance for activity to enable patient to perform ADL's. Main goal will be for pt. to be able to transfer from bed to/from wheelchair with min assist. OT Education/Plan Problem List/Assessment Assessment: Decreased Activ Tolerance, Decreased UE Strength, Dependent Transfers, Impaired Bed Mobility, Impaired Funct Balance, Impaired I ADL's, Impaired Self-Care Skills, Restricted Funct UE ROM Discharge Recommendations Plan/Recommendations: Continue POC Therapy Discharge Recommendati: 24 Hour Supervision, Post Acute OT Treatment Plan/Plan of Care Treatment,Training & Education: Yes Patient would benefit from OT for education, treatment and training to promote independence in ADL's, mobility, safety and/or upper extremity function for ADL's. Plan of Care: ADL Retraining, Functional Mobility, UE Funct Exercise/Act Treatment Duration: Jan 10, 2020 Frequency: 5 times per week Estimated Hrs Per Day: .25 hour per day Agreement: Yes Rehab Potential: Fair Time/GCodes Start Time: 12:55 Stop Time: 13:25 Total Time Billed (hr/min): 30 Billed Treatment Time 1, EVH x 15minutes, FA x 15minutes JANNA RANGEL OT Dec 27, 2019 14:23
[2019-12-27] MEDS: RT-ALBUTEROL/IPRATROPIUM 3 ML (DUONEB) VIAL INH SCH ×3 (14:37→22:24)
--- NOTE | 2019-12-27 14:42 | NUR ---
I SPOKE WITH THE PATIENT AND WENT THROUGH THE EXTERNAL MED HISTORY TO COMPLETE THIS MED REC. PATIENT TAKES ATORVASTATIN 1/2 TABLET INSTEAD OF A WHOLE TABLET LIKE THE DIRECTIONS STATE OTC: TYLENOL
[2019-12-27] MEDS ORDERED: PHENYTOIN 100 MG (DILANTIN) CAP PO SCH (15:00)
[2019-12-27] MEDS ORDERED: lamoTRIgine 25 MG (LaMICtal) TAB PO SCH (15:00)
[2019-12-27] MEDS ORDERED: carBAMazepine 200 MG (TEGretol) TAB PO SCH (15:00)
--- NOTE | 2019-12-27 15:00 | NUR ---
Pastoral care visit, pt shared concerns about continued health decline, also expressed belief/matthew in God. I provided listening and support and prayer.
[2019-12-27] MEDS ORDERED: RT-ALBUTEROL/IPRATROPIUM 3 ML (DUONEB) VIAL INH PRN (16:00)
--- NOTE | 2019-12-27 16:54 | History & Physical-Hospitalist ---
History of Present Illness HPI/Chief Complaint Joel Adamson is a 64-year-old male with past medical history of hypertension, seizures, COPD, chronic hypoxic respiratory failure, lung cancer with metastasis to the bone, who presented with difficulty speaking and swallowing. He reports that he was very scared. He reports that he also felt dizzy and had double vision. His symptoms resolved spontaneously. They did recur a couple times since then and have again resolved at this time. He denies any fevers or chills. He denies any headache. He denies any focal weakness. He is not having any vision changes. He denies any chest pain. He denies any shortness of breath or cough. He denies any abdominal pain. He denies any nausea or vomiting. He denies any diarrhea. He denies any dysuria. Source: patient Exam Limitations: no limitations Date Seen 12/27/19 Time Seen by a Provider: 11:30 Attending Physician Na Multani MD PCP Micky Feng DO Referring Physician Date of Admission Dec 26, 2019 at 20:45 Home Medications & Allergies Home Medications Reviewed patient Home Medication Reconciliation performed by pharmacy medication reconciliations cable television technician and/or nursing. Patients Allergies have been reviewed. Allergies Allergies Coded Allergies aspirin (Unverified Allergy, Mild, DOES NOT WORK WELL W/ OTHER MEDS, 09/20/19) ibuprofen (Unverified Allergy, Mild, 09/20/19) hydrocodone (Verified Adverse Reaction, Intermediate, BECOMES TOO SEDATED, 09/22/19) Past Deurcuz-Ogjsps-Dggmfl Hx Past Med/Social Hx: Reviewed Nursing Past Med/Soc Hx Patient Social History Alcohol Use: Past History Recreational Drug Use: Yes Drug of Choice: HX OF RX DRUG ABUSE, CLAIMS NONE 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 Smoking Status: Current Everyday Smoker Type Used: Cigars, Cigarettes 2nd Hand Smoke Exposure: Yes Recent Foreign Travel: No Contact w/other who traveled: No Recent Hopitalizations: No Recent Infectious Disease Expo: No Immunizations Up To Date Tetanus Booster (TDap): Less than 5yrs Pediatric: Yes Date of Influenza Vaccine: Apr 21, 2018 Seasonal Allergies Seasonal Allergies: Yes Past Medical History Surgeries: Eye Surgery, Gallbladder, Orthopedic Respiratory: COPD, Emphysema, Pneumonia Currently Using CPAP: No Currently Using BIPAP: No Cardiac: Heart Murmur, High Cholesterol, Hypertension, Valvular Heart Disease Neurological: Neuropathy, Seizure Disorder, Vertigo Reproductive: No Sexually Transmitted Disease: No HIV/AIDS: No Gastrointestinal: Gastroesophageal Reflux Musculoskeletal: Arthritis, Fractures, Contracture Loss of Vision: Denies Hearing Impairment: Denies Cancer: Bone, Lung Did You Recieve Any Treatments: Yes What Type of Treatment Did You: Chemotherapy History of Blood Disorders: No Adverse Reaction to Blood [place]: No Family History Diabetes mellitus 19 MOTHER Hypercholesterolemia 19 FATHER Hypertension 19 FATHER Heart Disease Review of Systems Constitutional: dizziness EENTM: double vision, other (the faculty swallowing, difficulty speaking) Respiratory: no symptoms reported Cardiovascular: no symptoms reported Gastrointestinal: no symptoms reported Genitourinary: no symptoms reported Musculoskeletal: no symptoms reported Skin: no symptoms reported Psychiatric/Neurological: No Symptoms Reported Physical Exam Physical Exam Vital Signs Vital Signs - First Documented 12/26/19 12/26/19 12/27/19 20:30 20:56 12:45 Temp 37.0 Pulse 70 Resp 16 B/P (MAP) 169/91 (117) Pulse Ox 99 O2 Delivery Nasal Cannula O2 Flow Rate 4.00 FiO2 36 Capillary Refill : Less Than 3 Seconds Height, Weight, BMI Height: 6'0" Weight: 174lbs. 3.0oz. 79.081287uc; 271.01 BMI Method:Stated General Appearance: No Apparent Distress, WD/WN, Chronically ill HEENT: PERRL/EOMI, Pharynx Normal Neck: Other (right-sided port in place) Respiratory: No Respiratory Distress, Decreased Breath Sounds, Wheezing Cardiovascular: Regular Rate, Rhythm, No Edema, No Murmur Gastrointestinal: Normal Bowel Sounds, Non Tender, Soft Extremity: No Inflammation; Pedal Edema, Other (left leg externally rotated) Neurologic/Psychiatric: Alert, Oriented x3, Normal Mood/Affect Skin: Normal Color, Warm/Dry Results Results/Procedures Labs Laboratory Tests 12/26/19 20:48 12/27/19 05:23 Patient resulted labs reviewed. Imaging: Reviewed Imaging Report Assessment/Plan Admission Diagnosis TIA Admission Status: Inpatient Order (span 2 midnights) Reason for Inpatient Admission: TIA requiring further evaluation Assessment and Plan TIA CTA revealed left vertebral artery occlusion, chronicity unknown, moderate left internal carotid artery narrowing CT Head unremarkable Prescribed Plavix as an outpatient, has not started taking yet Begin Plavix Increase to high intensity statin, Lipitor 80 mg daily echocardiogram ordered Lung cancer with metastasis to the bone Follows with Dr. Hoffman Receiving monthly immunotherapy Therapy has reportedly halted progression Chronic hypoxic respiratory failure COPD HTN HLD Seizure disorder continue home meds and oxygen supplementation DVT prophylaxis: Lovenox Diagnosis/Problems Diagnosis/Problems (1) TIA involving vertebral artery Status: Acute (2) COPD (chronic obstructive pulmonary disease) Status: Chronic (3) Lung cancer metastatic to bone Status: Chronic (4) Chronic respiratory failure with hypoxia Status: Chronic (5) HTN (hypertension) Status: Chronic (6) HLD (hyperlipidemia) Status: Chronic (7) Seizure disorder Status: Chronic Clinical Quality Measures DVT/VTE Risk/Contraindication: Risk Factor Score Per Nursin RFS Level Per Nursing on Admit: 4+=Very High SENG JOSEPH MD Dec 27, 2019 16:54
--- NOTE | 2019-12-27 23:12 | NUR ---
DR. ELLISON NOTIFIED PT C/O NAUSEA WITH NO MEDICATION ON EMAR. NEW ORDERS RECEIVED FOR ZOFRAN 4MG IV Q6H PRN. WILL CONTINUE TO MONITOR.
[2019-12-27] MEDS: ONDANSETRON 4 MG/2 ML (SDV) Z0FRAN IVP PRN (23:49)
[2019-12-28] MEDS: RT-ALBUTEROL/IPRATROPIUM 3 ML (DUONEB) VIAL INH SCH ×3 (02:46→10:44)
[2019-12-28] MEDS: lamoTRIgine 25 MG (LaMICtal) TAB PO SCH (03:26)
[2019-12-28] MEDS: carBAMazepine 200 MG (TEGretol) TAB PO SCH ×2 (03:26→08:23)
[2019-12-28 03:27] VITALS: BP 152/82
[2019-12-28] MEDS: NS IV 1000 ML 1,000 ML IV SCH (07:15)
[2019-12-28] MEDS ORDERED: amLODIPine 5 MG (NORVASC) TAB PO SCH (08:00)
[2019-12-28 08:18] VITALS: BP 157/86
[2019-12-28] MEDS: PHENYTOIN 100 MG (DILANTIN) CAP PO SCH (08:22)
[2019-12-28] MEDS: CLOPIDOGREL 75 MG (PLAVIX) TABLET PO SCH (08:22)
[2019-12-28] MEDS: GABAPENTIN 600 MG (NEURONTIN) TAB PO SCH (08:22)
--- NOTE | 2019-12-28 08:37 | NUR ---
Pt lvies with his Significant Other locally. He receives [facility] care and 24 hour care from his Significant Other Tabatha and her daughter as both are [employer]'s He is on continuous oxygen from [facility] equipment. Pt is wheelchair bound. Pt lives with chronic illness and is hoping someday to be able to walk again. Will follow and assist with resuming Home Health upon discharge and follow as he is a [facility] patient at [facility] receiving treatment for lung cancer.
[2019-12-28] MEDS: ONDANSETRON 4 MG/2 ML (SDV) Z0FRAN IVP PRN (09:34)
--- NOTE | 2019-12-28 10:01 | Physical Therapy Progress Note ---
Therapy Progress Note Patient declined PT stating, "I'm going home today. The doctor came in and told me to pack up." Currently no orders on chart. Will monitor POC. 1 ref ([id number]) LAVON LAMAS PT Dec 28, 2019 10:01
--- NOTE | 2019-12-28 10:29 | NUR ---
IRF Evaluation Determination: Denied Explanation: Chart review complete and findings discussed with Dr. Swenson. It was determined patient would not be able to tolerate intensity of therapy provided. It is noted patient does have existing support/services within his home, i.e., home health and 24 hour care, provided by significant other and her daughter. Thank you for this referral.
[2019-12-28 10:58] LABS: CHOLESTEROL 303 MG/DL (< 200); HDL CHOLESTEROL 71 MG/DL (40-60); TRIGLYCERIDES 135 MG/DL (<150); VLDL CHOLESTEROL 27 MG/DL (5-40)
[2019-12-28] MEDS ORDERED: ENOXAPARIN 40 MG/0.4 ML (LOVENOX) SYR SC SCH (11:45)
[2019-12-28] MEDS ORDERED: ATOR40TA PO (12:18)
[2019-12-28] MEDS ORDERED: CLOP75TA28 PO (12:18)
[2019-12-28 12:29] VITALS: BP 158/80
--- NOTE | 2019-12-28 13:01 | Discharge Summary ---
Discharge Summary Hospital Course Was the Problem List Reviewed?: Yes Problems/Dx: (1) TIA involving vertebral artery Status: Acute (2) COPD (chronic obstructive pulmonary disease) Status: Chronic (3) Lung cancer metastatic to bone Status: Chronic (4) Chronic respiratory failure with hypoxia Status: Chronic (5) HTN (hypertension) Status: Chronic (6) HLD (hyperlipidemia) Status: Chronic (7) Seizure disorder Status: Chronic Hospital Course Date of Admission: Dec 26, 2019 at 20:45 Admission Diagnosis : TIA Family Physician/Provider: Micky Genao DO Date of Discharge: 12/28/19 Discharge Diagnosis: TIA Hospital Course: Joel Adamson is a 64-year-old male with past medical history of a hypertension, hyperlipidemia, seizure disorder, oxygen dependent COPD, lung cancer with metastasis to the bone, who presented with strokelike symptoms and was admitted with a TIA. He underwent a CT head which showed no acute abnormalities. He had a CTA performed which showed a an occlusion of the left vertebral artery. He al so had moderate stenosis of the left carotid artery. His symptoms spontaneously resolved. He was started on Plavix. He refuses to take aspirin because and reportedly interacts with one of the seizure medications. His statin was increased to high-intensity dosing. He should follow-up with vascular surgery. He should follow-up with his primary care physician. He was discharged home in stable condition. Labs and Pending Lab Test: Laboratory Tests 12/28/19 10:30: Triglycerides Level 135, Cholesterol Level 303H, LDL Cholesterol Direct 227H, VLDL Cholesterol 27, HDL Cholesterol 71H Home Meds Active Lipitor (Atorvastatin Calcium) 40 Mg Tablet 80 Mg PO HS 30 Days Clopidogrel (Clopidogrel Bisulfate) 75 Mg Tablet 75 Mg PO DAILY 30 Days Reported Hydrocodone-Acetamin 10-325 mg (Hydrocodone/Acetaminophen) 1 Each Tablet 1 Each PO Q6H PRN Ropinirole HCl 0.5 Mg Tablet 0.5 Mg PO HS Ventolin Hfa (Albuterol Sulfate) 18 Gm Hfa.aer.ad 2 Puff INH 1300 Fluticasone-Salmeterol 250-50 (Fluticasone Propion/Salmeterol) 1 Each Blst.w.dev 1 Each INH BID Meloxicam 7.5 Mg Tablet 7.5 Mg PO 1500 Amlodipine Besylate 5 Mg Tablet 5 Mg PO 0800 Lamotrigine 100 Mg Tablet 100 Mg PO 1500,2300 Neurontin (Gabapentin) 300 Mg Capsule 300 Mg PO 2300 Acetaminophen 500 Mg Tablet 1,000 Mg PO Q6H PRN Carbamazepine 200 Mg Tablet 400 Mg PO 1500 TAKES 2 (200 MG) TABLETS LAST FILLED 07/20/2019 #540/90 DAY SUPPLY Lamotrigine 25 Mg Tablet 25 Mg PO 0300, 1500 Tegretol (Carbamazepine) 200 Mg Tablet 200 Mg PO 0300,0800,2300 LAST FILLED 07/23/2019 #540/90 DAY SUPPLY Phenytoin Sodium Extended 100 Mg Capsule 100 Mg PO 0800,2300 LAST FILLED 07/09/2019 #450/90 DAY SUPPLY Phenytoin Sodium Extended 100 Mg Capsule 200 Mg PO 1500 TAKES 2 (100 MG) CAPSULES LAST FILLED #450/90 DAY SUPPLY Gabapentin 600 Mg Tablet 600 Mg PO 0800,1500 Assessment/Pt Instructions take medications as prescribed. Begin taking Plavix. We have increased her dose of your statin. Follow-up with vascular surgery. Follow-up with your primary care physician. Discharge Planning: <30 minutes discharge planning Discharge Instructions Discharge Diet: Low Sodium Diet Activity as Tolerated: Yes Discharge Physical Examination Vital Signs Vital Signs Date Time Temp Pulse Resp B/P (MAP) Pulse Ox O2 Delivery O2 Flow Rate FiO2 12/28/19 12:29 36.2 76 16 158/80 (106) 97 Nasal Cannula 4.00 12/27/19 12:45 36 General Appearance: No Apparent Distress, Chronically ill Respiratory: No Respiratory Distress, Decreased Breath Sounds Cardiovascular: Regular Rate, Rhythm, No Murmur Gastrointestinal: Normal Bowel Sounds, Non Tender, Soft Extremity: Other (left leg externally rotated, bandages in place) Skin: Normal Color, Warm/Dry Neurologic/Psychiatric: Alert, Oriented x3, No Motor/Sensory Deficits, Normal Mood/Affect Allergies: Coded Allergies: aspirin (Unverified Allergy, Mild, DOES NOT WORK WELL W/ OTHER MEDS, 09/20/19) ibuprofen (Unverified Allergy, Mild, 09/20/19) hydrocodone (Verified Adverse Reaction, Intermediate, BECOMES TOO SEDATED, 09/22/19) Copy Copies To 1: MICKY GENAO DO Discharge Summary Date of Admission Dec 26, 2019 at 20:45 Date of Discharge Discharge Date: Dec 28, 2019 Discharge Time: 13:01 Admission Diagnosis TIA Discharge Diagnosis TIA (1) TIA involving vertebral artery Status: Acute (2) COPD (chronic obstructive pulmonary disease) Status: Chronic (3) Lung cancer metastatic to bone Status: Chronic (4) Chronic respiratory failure with hypoxia Status: Chronic (5) HTN (hypertension) Status: Chronic (6) HLD (hyperlipidemia) Status: Chronic (7) Seizure disorder Status: Chronic Clinical Quality Measures DVT/VTE Risk/Contraindication: Risk Factor Score Per Nursin RFS Level Per Nursing on Admit: 4+=Very High SENG JOSEPH MD Dec 28, 2019 13:00
--- NOTE | 2019-12-28 13:16 | Occupational Ther Daily Note ---
OT Current Status-Daily Note Subjective No pain reported. Appearance Pt. in bed when OT entered room. States that he is leaving today. Mental Status/Objective Patient Orientation: Person, Place ADL-Treatment Therapy Code Descriptions/Definitions Functional [place] Measure: 0=Not Assessed/NA 4=Minimal Assistance 1=Total Assistance 5=Supervision or Setup 2=Maximal Assistance 6=Modified [place] 3=Moderate Assistance 7=Complete IndependenceSCALE: Activities may be completed with or without assistive devices. 9-Lrxtecjvfs-vmsdwqb completes the activity by him/herself with no assistance from a helper. 5-Set-up or Clean-up Assistance-helper sets up or cleans up; patient completes activity. [place] assists only prior to or following the activity. 4-Supervision or Touching Assistance-helper provides verbal cues and/or touching/steadying and/or contact guard assistance as patient completes activity. Assistance may be provided throughout the activity or intermittently. 3-Partial/Moderate Assistance-helper does LESS THAN HALF the effort. [place] lifts, holds or supports trunk or limbs, but provides less than half the effort. 2-Substantial/Maximal Assistance-helper does MORE THAN HALF the effort. [place] lifts or holds trunk or limbs and provides more than half the effort. 8-Dcfrkfzqa-wnpkyh does ALL the effort. Patient does none of the effort to complete the activity. Or, the assistance of 2 or more helpers is required for the patient to complete the activity. If activity was not attempted, code reason: 7-Patient Refused. 9-Not Applicable-not attempted and the patient did not perform the activity before the current illness, exacerbation or injury. 10-Not Attempted due to Environmental Limitations-(lack of equipment, weather restraints, etc.). 88-Not Attempted due to Medical Conditions or Safety Concerns. Other Treatment Pt. is leaving this date. OT encourages pt. to sit on side of bed, but pt. declines. Pt. does ask to be adjusted in bed. OT encourages pt. to scoot self up in bed using right LE, and elbows on bed. Pt. is able to scoot, but does require more assistance. OT/nursing transfer pt. to HOB with max x 2. Pt. rolls with SBA, side to side, for OT to place pad underneath. All needs are met and nursing is in room to assess pt. Education OT Patient Education: Correct positioning, Purpose of tx/functional activities, Reviewed precautions, Rehab process, Transfer techniques Teaching Recipient: Patient Teaching Methods: Demonstration, Discussion Response to Teaching: Verbalize Understanding, Return Demonstration OT Short Term Goals Short Term Goals Time Frame: Jan 03, 2020 Eatin Oral hygiene: 4 Toileting hygiene: 3 OT Custodial Goals Home Restoration Service Supervisor Goals Time Frame: Jan 10, 2020 Eating (QC): 6 Oral Hygiene (QC): 5 Toileting Hygiene (QC): 4 Upper Body Dressing (QC): 4 Lower Body Dressing (QC): 3 Additional Goals: 1-Demonstrate ADL Tasks, 2-Verbalize Understanding, 3- ImproveStrength/Jessica 1=Demonstrate adherence to instructed precautions during ADL tasks. 2=Patient will verbalize/demonstrate understanding of assistive device s/modifications for ADL. 3=Patient will improve strength/tolerance for activity to enable patient to perform ADL's. OT Education/Plan Problem List/Assessment Assessment: Decreased Activ Tolerance, Decreased UE Strength, Dependent Transfers, Impaired Bed Mobility, Impaired I ADL's, Impaired Self-Care Skills Discharge Recommendations Plan/Recommendations: Continue POC Therapy Discharge Recommendati: Scheduled Assistance, Home & Family Treatment Plan/Plan of Care Treatment,Training & Education: Yes Patient would benefit from OT for education, treatment and training to promote independence in ADL's, mobility, safety and/or upper extremity function for ADL's. Plan of Care: ADL Retraining, Functional Mobility, UE Funct Exercise/Act Treatment Duration: Jan 10, 2020 Frequency: 5 times per week Estimated Hrs Per Day: .25 hour per day Agreement: Yes Rehab Potential: Fair Time/GCodes Start Time: 11:25 Stop Time: 11:35 Total Time Billed (hr/min): 10 Billed Treatment Time 1, JANNA RAMIREZ OT Dec 28, 2019 13:16
[2019-12-28 13:39] VITALS: BP 158/80
--- NOTE | 2019-12-28 15:10 | NUR ---
Arrangements completed for pt to discharge home and resume Home Health Care services fro [facility] [place] [facility].Pt's Significant Other transported pt home. Faxed discharge orders, physician and therapy notes to [facility] for their resumption of services.
== END 2019-12-28 13:23 | disposition home health service (06) | DRG 68 ==
LOC: EDUNIT# 20:22 → ER 20:23 → 4TH 20:45
PROVIDERS: ADMIT Family Medicine; ATTEND Family Medicine
DX: I65.02 Occlusion and stenosis of left vertebral artery (principal); C34.90 Malignant neoplasm of unspecified part of unspecified bronchus or lung; C79.51 Secondary malignant neoplasm of bone; I38 Endocarditis, valve unspecified; J96.11 Chronic respiratory failure with hypoxia; I65.22 Occlusion and stenosis of left carotid artery; R47.81 Slurred speech; R13.10 Dysphagia, unspecified; H53.2 Diplopia; J44.9 Chronic obstructive pulmonary disease, unspecified; I10 Essential (primary) hypertension; G40.909 Epilepsy, unspecified, not intractable, without status epilepticus; E78.00 Pure hypercholesterolemia, unspecified; E78.5 Hyperlipidemia, unspecified; R01.1 Cardiac murmur, unspecified; G47.30 Sleep apnea, unspecified; G62.9 Polyneuropathy, unspecified; G14 Postpolio syndrome; K21.9 Gastro-esophageal reflux disease without esophagitis; M19.91 Primary osteoarthritis, unspecified site; F17.210 Nicotine dependence, cigarettes, uncomplicated; F17.290 Nicotine dependence, other tobacco product, uncomplicated; F19.11 Other psychoactive substance abuse, in remission; Z92.21 Personal history of antineoplastic chemotherapy; Z87.01 Personal history of pneumonia (recurrent); Z99.81 Dependence on supplemental oxygen
CPT/HCPCS: 36415; 36556; 71045; 80053; 80061; 80156; 80185; 83735; 85025; 85610; 85730; 93041; 93306; 93880; 94640; 94664; 94760

== ENCOUNTER 2019-12-28 14:34 | Emergency (ER) | payer MEDICARE, MEDICAID ==
[~2019-12-28] VITALS: Ht 182 cm; Wt 78.0 kg
[~2019-12-28 14:34] MED LIST changes: +FLUT1BLS12 INH; +HYDR-3820 PO
--- NOTE | 2019-12-28 15:41 | NUR ---
TALKED WITH PT'S FAMILY VELVET ET UPDATE GIVEN.
--- NOTE | 2019-12-28 15:57 | ED EENT ---
History of Present Illness General Chief Complaint: Nasal Problems Stated Complaint: BLEEDING NOSE, ON BLOOD THINNERS Nursing Triage Note: ARRIVED VIA WC TO ROOM 08. STATES HE WAS DC FROM THE HOSPITAL AND WAS AT [facility] 1 HR 20 MINS AGO WHEN HIS NOSE STARTED TO BLEED AND HE COULD NOT GET IT TO STOP. THINKS NOW IT MIGHT HAVE STOPPED. PT WANTS TO BE ON OUR OXYGEN DUE HIS RUNNING OUT WHILE IN WAITING ROOM. History of Present Illness Date Seen by Provider: Dec 28, 2019 Time Seen by Provider: 15:30 Initial Comments 64-year-old male presents with epistaxis from the left near. He was discharged from the hospital earlier today and began having the nosebleed while at [facility]. He is not have problems with this in the past. He denies any trauma to his nose. He is on anticoagulants. Due to extended waiting room time, the nose bleed had stopped by the time he was brought to the exam room. Severity: mild Prearrival Treatment: no prearrival treatment Associated Symptoms: denies symptoms Allergies and Home Medications Allergies Coded Allergies: aspirin (Unverified Allergy, Mild, DOES NOT WORK WELL W/ OTHER MEDS, 09/20/19) ibuprofen (Unverified Allergy, Mild, 09/20/19) hydrocodone (Verified Adverse Reaction, Intermediate, BECOMES TOO SEDATED, 09/22/19) Home Medications Acetaminophen 500 Mg Tablet, 1,000 MG PO Q6H PRN for PAIN-MILD (1-4), (Reported) Albuterol Sulfate 18 Gm Hfa.aer.ad, 2 PUFF INH 1300, (Reported) Amlodipine Besylate 5 Mg Tablet, 5 MG PO 0800, (Reported) Atorvastatin Calcium 40 Mg Tablet, 80 MG PO HS Prescribed by: SENG JOSEPH on 12/28/19 1218 Carbamazepine 200 Mg Tablet, 200 MG PO 0300,0800,2300, (Reported) LAST FILLED 07/23/2019 #540/90 DAY SUPPLY Carbamazepine 200 Mg Tablet, 400 MG PO 1500, (Reported) TAKES 2 (200 MG) TABLETS LAST FILLED 07/20/2019 #540/90 DAY SUPPLY Clopidogrel Bisulfate 75 Mg Tablet, 75 MG PO DAILY Prescribed by: SENG JOSEPH on 12/28/19 1218 Fluticasone Propion/Salmeterol 1 Each Blst.w.dev, 1 EACH INH BID, (Reported) Gabapentin 600 Mg Tablet, 600 MG PO 0800,1500, (Reported) Gabapentin 300 Mg Capsule, 300 MG PO 2300, (Reported) Hydrocodone/Acetaminophen 1 Each Tablet, 1 EACH PO Q6H PRN for PAIN-MODERATE (5- 7), (Reported) Lamotrigine 25 Mg Tablet, 25 MG PO 0300, 1500, (Reported) Lamotrigine 100 Mg Tablet, 100 MG PO 1500,2300, (Reported) Meloxicam 7.5 Mg Tablet, 7.5 MG PO 1500, (Reported) Phenytoin Sodium Extended 100 Mg Capsule, 200 MG PO 1500, (Reported) TAKES 2 (100 MG) CAPSULES LAST FILLED #450/90 DAY SUPPLY Phenytoin Sodium Extended 100 Mg Capsule, 100 MG PO 0800,2300, (Reported) LAST FILLED 07/09/2019 #450/90 DAY SUPPLY Ropinirole HCl 0.5 Mg Tablet, 0.5 MG PO HS, (Reported) Patient Home Medication List Home Medication List Reviewed: Yes Review of Systems Review of Systems Constitutional: no symptoms reported, see HPI Nose: see HPI, epistaxis All Other Systems Reviewed Negative Unless Noted: Yes Past Bojegre-Rskvrc-Jhmatl Hx Past Med/Social Hx: Reviewed Nursing Past Med/Soc Hx Patient Social History Drug of Choice: HX OF RX DRUG ABUSE, CLAIMS NONE 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 Type Used: Cigars, Cigarettes 2nd Hand Smoke Exposure: Yes Recent Foreign Travel: No Contact w/Someone Who Travel: No Recent Infectious Disease Expo: No Recent Hopitalizations: No Immunizations Up To Date Tetanus Booster (TDap): Less than 5yrs PED Vaccines UTD: Yes Date of Influenza Vaccine: Apr 21, 2018 Seasonal Allergies Seasonal Allergies: Yes Past Medical History Surgeries: Yes (C-SPINE SURGERY FOR FX; LEFT LOWER LEG SURGERY 10/2019) Eye Surgery, Gallbladder, Orthopedic Respiratory: Yes (O2 AT 4L/NC CONTINUOUSLY;LUNG CANCER;MULT EPISODES OF PNEUMONIA) Asthma, Pneumonia, Chronic Bronchitis, Sleep Apnea, COPD Currently Using CPAP: No Currently Using BIPAP: No Cardiac: Yes Heart Murmur, High Cholesterol, Hypertension, Valvular Heart Disease 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) Neuropathy, Paralysis, Seizure Disorder, Vertigo Reproductive Disorders: No Sexually Transmitted Disease: No HIV/AIDS: No Genitourinary: No Gastrointestinal: Yes (CHRONIC N/V) Gastroesophageal Reflux Musculoskeletal: Yes (HX C-SPINE FX/NON-UNION OF ODONTOID; FALLS;POST POLIO-L SIDE WEAKNESS/CONTR) Arthritis, Fractures, Contracture Endocrine: No HEENT: Yes (DENTURES) Loss of Vision: Denies Hearing Impairment: Denies Cancer: Yes Bone, Lung Did You Recieve Any Treatments: Yes What Type of Treatment Did You: Chemotherapy Psychosocial: No Integumentary: Yes (DECUBITUS ULCERS ON SACRUM/BUTTOCKS AREA) Blood Disorders: No Adverse Reaction/Blood Tranf: No Family Medical History Diabetes mellitus 19 MOTHER Hypercholesterolemia 19 FATHER Hypertension 19 FATHER Heart Disease Physical Exam Vital Signs Vital Signs - First Documented 12/28/19 15:41 Temp 37.0 Pulse 91 Resp 16 B/P (MAP) 162/99 (120) Pulse Ox 97 O2 Delivery Nasal Cannula O2 Flow Rate 4.00 Height, Weight, BMI Height: 6'0" Weight: 174lbs. 3.0oz. 79.586081dv; 23.00 BMI Method:Stated General Appearance: WD/WN, no apparent distress Nose: normal inspection; No active bleeding, No discharge Mouth/Throat: normal mouth inspection, pharynx normal Cardiovascular: normal peripheral pulses, regular rate, rhythm Respiratory: chest non-tender, lungs clear, normal breath sounds Neurologic/Psychiatric: no motor/sensory deficits, alert, normal mood/affect, oriented x 3 Skin: normal color, warm/dry Procedures/Interventions Date of ETT Placement: Mar 09, 2017 Time of ETT Placement: 1811 Suture Size: 5-0 Progress/Results/Core Measures Results/Orders Vital Signs/I&O 12/28/19 15:41 Temp 37.0 Pulse 91 Resp 16 B/P (MAP) 162/99 (120) Pulse Ox 97 O2 Delivery Nasal Cannula O2 Flow Rate 4.00 Blood Pressure Mean: 120 Departure Impression Primary Impression: Epistaxis Disposition: 01 HOME, SELF-CARE Condition: Improved Departure-Patient Inst. Decision time for Depature: 15:45 Referrals: AMANDEEP GENAO DO (PCP/Family) Primary Care Physician Patient Instructions: Nosebleeds (DC) Add. Discharge Instructions: If the nosebleeds occur again, gently packed with gauze, apply external pressure and an ice pack. Continue to use your oxygen and take medications as prescribed. Use saline nasal spray, to keep the nose moist. Follow-up with your primary care provider if symptoms do not improve or worsen. Return to the emergency department for new, urgent health care needs. All discharge instructions reviewed with patient and/or family. Voiced understlaura veras. FAVIAN COWART Dec 28, 2019 15:57
--- NOTE | 2019-12-28 16:03 | NUR ---
PT HAD A SEIZURE LASTING APPX 1.5 MINUTES.
--- NOTE | 2019-12-28 16:10 | NUR ---
FAVIAN TALKED WITH PT'S FAMILY VELVET ON THE PHONE.
[2019-12-28] MEDS ORDERED: carBAMazepine 200 MG (TEGretol) TAB PO ONE (16:15)
[2019-12-28] MEDS ORDERED: lamoTRIgine 25 MG (LaMICtal) TAB PO ONE (16:15)
[2019-12-28] MEDS ORDERED: PHENYTOIN 100 MG (DILANTIN) CAP PO ONE (16:15)
[2019-12-28] MEDS ORDERED: GABAPENTIN 600 MG (NEURONTIN) TAB PO ONE (16:15)
--- NOTE | 2019-12-28 16:22 | NUR ---
PHARMACY CONTACTED FOR MEDS.
[2019-12-28 17:03] VITALS: BP 162/99
--- NOTE | 2019-12-28 17:03 | NUR ---
PT HAS NOT HAD A NOSE BLEED SINCE BEING IN THE ER ET PT HAS NOT HAD ANOTHER SEIZURE SINCE THE ONE HE HAD IN THE ER AND WANTS TO GO HOME.
== END 2019-12-28 17:03 | disposition home or self-care (01) ==
LOC: EDUNIT# 14:34 → ER 14:36
DX: R04.0 Epistaxis (principal); E78.00 Pure hypercholesterolemia, unspecified; J44.9 Chronic obstructive pulmonary disease, unspecified; G40.909 Epilepsy, unspecified, not intractable, without status epilepticus; I10 Essential (primary) hypertension; Z82.49 Family history of ischemic heart disease and other diseases of the circulatory system; Z83.3 Family history of diabetes mellitus; Z85.830 Personal history of malignant neoplasm of bone; Z85.118 Personal history of other malignant neoplasm of bronchus and lung; Z77.22 Contact with and (suspected) exposure to environmental tobacco smoke (acute) (chronic); Z88.5 Allergy status to narcotic agent; Z88.8 Allergy status to other drugs, medicaments and biological substances; Z88.6 Allergy status to analgesic agent

== ENCOUNTER 2019-12-29 14:29 | Outpatient (RCR) | payer MEDICARE, MEDICAID ==
[2019-10-25 14:24] LABS: BASOPHILS % (AUTO) 0 % (0-10); EOSINOPHILS % (AUTO) 0 % (0-10); HEMATOCRIT 36 % (40-54); HEMOGLOBIN 11.8 G/DL (13.3-17.7); LYMPHOCYTES # (AUTO) 0.8 X 10^3 (1.0-4.0); LYMPHOCYTES % (AUTO) 15 % (12-44); MEAN CORPUSCULAR HEMOGLOBIN 28 PG (25-34); MEAN CORPUSCULAR HGB CONC 33 G/DL (32-36); MEAN CORPUSCULAR VOLUME 85 FL (80-99); MEAN PLATELET VOLUME 8.4 FL (7.4-10.4); MONOCYTES # (AUTO) 0.8 X 10^3 (0.0-1.0); MONOCYTES % (AUTO) 15 % (0-12); NEUTROPHILS # (AUTO) 3.7 X 10^3 (1.8-7.8); NEUTROPHILS % (AUTO) 70 % (42-75); PLATELET COUNT 288 10^3/uL (130-400); WHITE BLOOD COUNT 5.3 10^3/uL (4.3-11.0)
[2019-10-25 14:52] LABS: ALANINE AMINOTRANSFERASE 8 U/L (0-55); ALKALINE PHOSPHATASE 191 U/L (40-136); BILIRUBIN,TOTAL 0.2 MG/DL (0.1-1.0); BUN/CREATININE RATIO 11; CALCIUM 8.8 MG/DL (8.5-10.1); CARBON DIOXIDE 28 MMOL/L (21-32); CHLORIDE 93 MMOL/L (98-107); CREATININE SERUM 0.65 MG/DL (0.60-1.30); GFR ESTIMATED > 60; GLUCOSE 93 MG/DL (70-105); MAGNESIUM 1.9 MG/DL (1.6-2.4); POTASSIUM 4.4 MMOL/L (3.6-5.0); SODIUM 130 MMOL/L (135-145); TOTAL PROTEIN 7.2 GM/DL (6.4-8.2)
[2019-12-01 15:19] LABS: BASOPHILS % (AUTO) 0 % (0-10); EOSINOPHILS % (AUTO) 0 % (0-10); HEMATOCRIT 28 % (40-54); HEMOGLOBIN 9.1 G/DL (13.3-17.7); LYMPHOCYTES # (AUTO) 1.1 X 10^3 (1.0-4.0); LYMPHOCYTES % (AUTO) 16 % (12-44); MEAN CORPUSCULAR HEMOGLOBIN 28 PG (25-34); MEAN CORPUSCULAR HGB CONC 32 G/DL (32-36); MEAN CORPUSCULAR VOLUME 85 FL (80-99); MEAN PLATELET VOLUME 8.4 FL (7.4-10.4); MONOCYTES # (AUTO) 0.9 X 10^3 (0.0-1.0); MONOCYTES % (AUTO) 12 % (0-12); NEUTROPHILS # (AUTO) 5.3 X 10^3 (1.8-7.8); NEUTROPHILS % (AUTO) 73 % (42-75); PLATELET COUNT 438 10^3/uL (130-400); WHITE BLOOD COUNT 7.2 10^3/uL (4.3-11.0)
[2019-12-01 15:46] LABS: ALANINE AMINOTRANSFERASE 6 U/L (0-55); ALBUMIN 3.9 GM/DL (3.2-4.5); ALKALINE PHOSPHATASE 168 U/L (40-136); BILIRUBIN,TOTAL 0.3 MG/DL (0.1-1.0); BUN/CREATININE RATIO 10; CALCIUM 9.1 MG/DL (8.5-10.1); CARBON DIOXIDE 30 MMOL/L (21-32); CHLORIDE 89 MMOL/L (98-107); GFR ESTIMATED > 60; GLUCOSE 104 MG/DL (70-105); POTASSIUM 4.7 MMOL/L (3.6-5.0); SODIUM 129 MMOL/L (135-145); TOTAL PROTEIN 7.2 GM/DL (6.4-8.2)
[~2019-12-29 14:29] MED LIST changes: +AMLO-250 PO; +AMLO-251 PO; -AMLO10TA7 PO; -AMLO5TAB9 PO; +NIVOLUMAB 480 MG in NS (IVPB) CANCER CENTER 100 ML IV SCH; +NS IV 1000 ML (CANCER CTR) IV SCH
== END 2020-01-23 | disposition home or self-care (01) ==
LOC: ONC 14:29
PROVIDERS: ATTEND Internal Medicine Hematology & Oncology
DX: Z51.11 Encounter for antineoplastic chemotherapy (principal); C34.12 Malignant neoplasm of upper lobe, left bronchus or lung; C79.51 Secondary malignant neoplasm of bone; J43.9 Emphysema, unspecified; G40.909 Epilepsy, unspecified, not intractable, without status epilepticus; E78.5 Hyperlipidemia, unspecified; Z87.891 Personal history of nicotine dependence; Z79.899 Other long term (current) drug therapy; Z92.21 Personal history of antineoplastic chemotherapy
CPT/HCPCS: 36591; 80053; 83615; 83735; 85025; 96413; 99213

== ENCOUNTER 2019-12-31 14:35 | Emergency (ER) | payer MEDICARE, MEDICAID ==
--- NOTE | 2019-12-31 14:40 | NUR ---
PT BEING BROUGHT BACK TO ROOM ED8. PT STATES THAT HE DOESN'T NEED TO BE SEEN HE JUST NEED AN OXYGEN TANK. PT WAS HERE FOR OUTPATIENT SERVICES WHEN OXYGEN TANK BECAME EMPTY, SIGNIFICANT OTHER IS EN ROUTE WITH NEW TANK. PT DOES NOT WISH TO BE SEEN IN ER. PT WAS GIVEN PROTABLE OXYGEN TANK TO USE UNTIL HIS OXYGEN ARRIVED. PT REFUSING TO BE SEEN IN ED. DENIES SOA OR TROUBLE BREATHING.
== END 2019-12-31 14:40 | disposition left against medical advice (07) ==
LOC: EDUNIT# 14:35 → ER 14:37
DX: R06.02 Shortness of breath (principal)

== ENCOUNTER → 2019-12-31 | Outpatient (CLI) | payer MEDICARE, MEDICAID ==
[~2019-12-31] MED LIST changes: -AMLO-250 PO; -AMLO-251 PO; +AMLO10TA7 PO; +AMLO5TAB9 PO; -NIVOLUMAB 480 MG in NS (IVPB) CANCER CENTER 100 ML IV SCH; -NS IV 1000 ML (CANCER CTR) IV SCH
--- NOTE | 2019-12-31 15:35 | Diagnostic Imaging Report ---
INDICATION: Left shoulder pain. TIME OF EXAM: 03:19 p.m. EXAMINATION: Three views of the left shoulder were obtained. FINDINGS: There is severe glenohumeral joint degenerative changes. Acromioclavicular alignment is normal. Acromiohumeral space is normal. No fracture or dislocation is seen. IMPRESSION: Severe osteoarthritic changes of the glenohumeral joint with joint space narrowing, sclerosis and subchondral cyst formation. No acute fracture is detected. Dictated by: Dictated on workstation # [id number]
== END ==
LOC: RAD 15:12
PROVIDERS: ATTEND Family Medicine
DX: M19.012 Primary osteoarthritis, left shoulder (principal); M25.812 Other specified joint disorders, left shoulder; M85.412 Solitary bone cyst, left shoulder; Z20.828 Contact with and (suspected) exposure to other viral communicable diseases
CPT/HCPCS: 73030

== ENCOUNTER → 2020-01-03 | Outpatient (CLI) | payer MEDICARE, MEDICAID | LOC: WOUNDCARE 08:53 | PROVIDERS: ATTEND Surgery | DX: L89.520 Pressure ulcer of left ankle, unstageable (principal); L89.620 Pressure ulcer of left heel, unstageable; I70.244 Atherosclerosis of native arteries of left leg with ulceration of heel and midfoot; C34.90 Malignant neoplasm of unspecified part of unspecified bronchus or lung; Z20.828 Contact with and (suspected) exposure to other viral communicable diseases | CPT/HCPCS: 99214 ==

== ENCOUNTER → 2020-01-12 | Outpatient (CLI) | payer MEDICARE, MEDICAID | LOC: WOUNDCARE 13:45 | PROVIDERS: ATTEND Surgery | DX: L89.520 Pressure ulcer of left ankle, unstageable (principal); L89.620 Pressure ulcer of left heel, unstageable; I70.244 Atherosclerosis of native arteries of left leg with ulceration of heel and midfoot; C34.90 Malignant neoplasm of unspecified part of unspecified bronchus or lung; I96 Gangrene, not elsewhere classified; Z20.828 Contact with and (suspected) exposure to other viral communicable diseases | CPT/HCPCS: 11042 ==

== ENCOUNTER → 2020-01-19 | Outpatient (CLI) | payer MEDICARE, MEDICAID | LOC: WOUNDCARE 12:16 | PROVIDERS: ATTEND Surgery | DX: C34.90 Malignant neoplasm of unspecified part of unspecified bronchus or lung (principal); L89.520 Pressure ulcer of left ankle, unstageable; L89.620 Pressure ulcer of left heel, unstageable; I96 Gangrene, not elsewhere classified; I70.244 Atherosclerosis of native arteries of left leg with ulceration of heel and midfoot | CPT/HCPCS: 99213 ==

== ENCOUNTER → 2020-02-01 | Outpatient (CLI) | payer MEDICARE, MEDICAID ==
[~2020-02-01] MED LIST changes: +AMLO-250 PO; +AMLO-251 PO; -AMLO10TA7 PO; -AMLO5TAB9 PO; +GADOBUTROL 10 MMOL/10 ML (GADAVIST) VIAL IV ONE; +HOLD METFORMIN - RECEIVED CONTRAST 20 ML VIAL IV SCH; +IOHEXOL 350 MG/ML 100 ML (OMNIPAQUE 350) VIAL IV ONE; +NS 100 ML (IVPB) BAG IV ONE
[2020-02-01] MEDS: CATHETER FLUSH 10 ML SYR IV PRN ×2 (10:55→11:52)
--- NOTE | 2020-02-01 14:36 | Diagnostic Imaging Report ---
EXAMINATION: Magnetic resonance imaging of the left shoulder without contrast. DATE: February 01, 2020. COMPARISON: Left shoulder radiographs December 31, 2019. HISTORY: 64-year-old male, left shoulder pain, decreased range of motion. TECHNIQUE: Magnetic Resonance Imaging sequences were performed of the shoulder without contrast. FINDINGS: ROTATOR CUFF, LIGAMENTS, TENDONS, AND MUSCLES: The supraspinatus, infraspinatus, teres minor, and subscapularis tendons are intact. There is normal rotator cuff muscle bulk and signal. LONG HEAD OF BICEPS: The biceps labral attachment and long head of the biceps tendon is intact. The long head of the biceps tendon is normally positioned within the bicipital groove. GLENOHUMERAL JOINT: The humeral head is well positioned relative to the glenoid. There is severe glenohumeral joint space loss with [id number] articulation. There are multiple subchondral cysts. There are osteophytes extending off the inferior aspect of the humeral head. There is a moderate sized glenohumeral joint effusion. There is no identified intra-articular body. There is a low level synovitis. There is degenerative related blunting of the labrum. There is no identified paralabral cyst. ACROMIOCLAVICULAR JOINT: The acromioclavicular joint is normally aligned. The coracoclavicular and coracoacromial ligaments are intact. There are no degenerative changes of the acromioclavicular joint. BONE: There is no os acromiale. There is no acute fracture, bone contusion, or evidence of osteonecrosis. BURSAE AND SOFT TISSUES: The bursae and soft tissue surrounding the shoulder are unremarkable. IMPRESSION: 1. Severe arthritis of the glenohumeral joint with moderate sized glenohumeral joint effusion and low level synovitis. 2. Intact rotator cuff and proximal long head of the biceps tendon. 3. Intact acromioclavicular joint. 4. No acute fracture, bone contusion, or evidence of osteonecrosis. Dictated by: Dictated on workstation # [id number]
--- NOTE | 2020-02-01 15:01 | Diagnostic Imaging Report ---
INDICATION: Small cell lung cancer. TECHNIQUE: Patient was administered 26.6 mCi technetium 99m MDP intravenously and whole body imaging was performed after three-hour delay. COMPARISON: Correlation is made with prior whole body bone scan from 01/11/2019. FINDINGS: Normal uptake of activity by the axial and appendicular skeleton is noted. There is uptake by the kidneys with excretion into the urinary bladder. There is some generalized uptake involving bilateral shoulders as well as sternoclavicular junctions, likely degenerative. There is some uptake at the right wrist which is likely degenerative. There is uptake involving the medial compartment of the right knee which is likely degenerative. There is generalized uptake in the mid and lower aspect of the left lower extremity. Reportedly, patient has sustained a fracture. Mild uptake in the mid lumbar spine appears stable. No additional foci or suspicious foci are seen to suggest osseous metastatic disease. IMPRESSION: 1. Degenerative changes, as described, with probable post-traumatic changes involving the left lower extremity. 2. No definite scintigraphic evidence of osseous metastatic disease. Dictated by: Dictated on workstation # [id number]
--- NOTE | 2020-02-01 15:12 | Diagnostic Imaging Report ---
EXAMINATION: CT chest with contrast, CT abdomen with and without contrast. TECHNIQUE: Precontrast acquisitions were acquired through the abdomen. Multiple contiguous axial images were obtained through the chest and abdomen after administration of intravenous contrast. All CT scans use one or more of the following dose optimizing techniques: automated exposure control, MA and/or KvP adjustment based on a patient size and exam type, or iterative reconstruction. HISTORY: Lung cancer restaging. COMPARISON: CT chest, abdomen 01/11/2019, CTA chest 08/29/2019. FINDINGS: Thyroid: The thyroid is normal. Mediastinum: Heart size is normal without significant pericardial effusion. Calcifications of the aorta and coronary vessels. Thoracic aorta is normal in caliber. No suspicious lymphadenopathy. Lungs and airways: Emphysematous changes of both lungs. Increased patchy consolidation within the medial right middle lobe, right lower lobe, and left lower lobe. Scattered bilateral pulmonary nodules measuring up to 0.5 cm within the left upper lobe (series 5 image 55) (previously 0.5 cm). The airways are normal. Solid organs: The liver is normal without focal lesion. There is no biliary ductal dilation. The gallbladder is surgically absent. Pancreas is normal. Spleen is normal. Adrenal glands are normal. The kidneys are normal without hydronephrosis. Bowel: No bowel obstruction. Peritoneum: There is no intraperitoneal free fluid or free air. No suspicious lymphadenopathy. Vasculature: Calcification of the aorta without aneurysm. Musculoskeletal: Chronic compression fracture of the L1 vertebral body. New suspicious osseous lesion or compression fracture. IMPRESSION: 1. Increasing patchy consolidation throughout both lungs with scattered subcentimeter nodules. These findings could represent an infectious process, however neoplastic or metastatic disease cannot be excluded given its progression from 08/29/2019 and 01/11/2019. 2. Multiple new bilateral pulmonary nodules measuring up to 0.5 cm in the left upper lobe. Attention on follow-up imaging. 3. No new findings of metastatic disease within the abdomen. Dictated by: Dictated on workstation # [id number]
== END ==
LOC: CARD 10:31
PROVIDERS: ATTEND Nurse Practitioner Adult Health
DX: Z01.89 Encounter for other specified special examinations (principal); C34.12 Malignant neoplasm of upper lobe, left bronchus or lung; C79.51 Secondary malignant neoplasm of bone; M13.812 Other specified arthritis, left shoulder
CPT/HCPCS: 71260; 73221; 74170; 78306

== ENCOUNTER → 2020-02-01 | Outpatient (CLI) | payer MEDICARE, MEDICAID ==
[~2020-02-01] MED LIST changes: -GADOBUTROL 10 MMOL/10 ML (GADAVIST) VIAL IV ONE; -HOLD METFORMIN - RECEIVED CONTRAST 20 ML VIAL IV SCH; -IOHEXOL 350 MG/ML 100 ML (OMNIPAQUE 350) VIAL IV ONE; -NS 100 ML (IVPB) BAG IV ONE
== END ==
LOC: WOUNDCARE 09:29
PROVIDERS: ATTEND Surgery
DX: C34.90 Malignant neoplasm of unspecified part of unspecified bronchus or lung (principal); L89.624 Pressure ulcer of left heel, stage 4; I70.244 Atherosclerosis of native arteries of left leg with ulceration of heel and midfoot; I96 Gangrene, not elsewhere classified
CPT/HCPCS: 99213

== ENCOUNTER → 2020-02-07 | Outpatient (CLI) | payer MEDICARE, MEDICAID | LOC: WOUNDCARE 13:27 | PROVIDERS: ATTEND Surgery | DX: L89.624 Pressure ulcer of left heel, stage 4 (principal); I70.244 Atherosclerosis of native arteries of left leg with ulceration of heel and midfoot; C34.90 Malignant neoplasm of unspecified part of unspecified bronchus or lung; I96 Gangrene, not elsewhere classified; Z20.828 Contact with and (suspected) exposure to other viral communicable diseases | CPT/HCPCS: 11042 ==

== ENCOUNTER 2020-02-08 13:03 | Outpatient (RCR) | payer MEDICARE, MEDICAID ==
[2020-01-25 10:47] LABS: BASOPHILS % (AUTO) 0 % (0-10); EOSINOPHILS % (AUTO) 0 % (0-10); HEMATOCRIT 34 % (40-54); HEMOGLOBIN 10.7 g/dL (13.3-17.7); LYMPHOCYTES # (AUTO) 0.7 10^3/uL (1.0-4.0); LYMPHOCYTES % (AUTO) 8 % (12-44); MEAN CORPUSCULAR HEMOGLOBIN 25 pg (25-34); MEAN CORPUSCULAR HGB CONC 32 g/dL (32-36); MEAN CORPUSCULAR VOLUME 80 fL (80-99); MEAN PLATELET VOLUME 8.7 fL (9.0-12.2); MONOCYTES # (AUTO) 0.7 10^3/uL (0.0-1.0); MONOCYTES % (AUTO) 9 % (0-12); NEUTROPHILS # (AUTO) 7.1 10^3/uL (1.8-7.8); NEUTROPHILS % (AUTO) 83 % (42-75); PLATELET COUNT 323 10^3/uL (130-400); WHITE BLOOD COUNT 8.5 10^3/uL (4.3-11.0)
[2020-01-25 11:06] LABS: ALANINE AMINOTRANSFERASE 8 U/L (0-55); ALBUMIN 4.3 GM/DL (3.2-4.5); ALKALINE PHOSPHATASE 193 U/L (40-136); BILIRUBIN,TOTAL 0.2 MG/DL (0.1-1.0); BUN/CREATININE RATIO 10; CALCIUM 9.1 MG/DL (8.5-10.1); CARBON DIOXIDE 29 MMOL/L (21-32); CHLORIDE 90 MMOL/L (98-107); CREATININE SERUM 0.72 MG/DL (0.60-1.30); GFR ESTIMATED > 60; GLUCOSE 118 MG/DL (70-105); POTASSIUM 4.6 MMOL/L (3.6-5.0); SODIUM 128 MMOL/L (135-145); TOTAL PROTEIN 7.8 GM/DL (6.4-8.2)
[~2020-02-08 13:03] MED LIST changes: +NIVOLUMAB 480 MG in NS (IVPB) CANCER CENTER 100 ML IV SCH; +NS IV 1000 ML (CANCER CTR) IV SCH
[2020-02-08 13:29] LABS: BASOPHILS % (AUTO) 0 % (0-10); EOSINOPHILS % (AUTO) 0 % (0-10); HEMATOCRIT 31 % (40-54); HEMOGLOBIN 10.1 g/dL (13.3-17.7); LYMPHOCYTES # (AUTO) 0.6 10^3/uL (1.0-4.0); LYMPHOCYTES % (AUTO) 11 % (12-44); MEAN CORPUSCULAR HEMOGLOBIN 25 pg (25-34); MEAN CORPUSCULAR HGB CONC 32 g/dL (32-36); MEAN CORPUSCULAR VOLUME 77 fL (80-99); MEAN PLATELET VOLUME 8.5 fL (9.0-12.2); MONOCYTES # (AUTO) 0.7 10^3/uL (0.0-1.0); MONOCYTES % (AUTO) 12 % (0-12); NEUTROPHILS # (AUTO) 4.6 10^3/uL (1.8-7.8); NEUTROPHILS % (AUTO) 77 % (42-75); PLATELET COUNT 268 10^3/uL (130-400)
[2020-02-08 13:50] LABS: ALANINE AMINOTRANSFERASE 9 U/L (0-55); ALBUMIN 3.9 GM/DL (3.2-4.5); ALKALINE PHOSPHATASE 168 U/L (40-136); BILIRUBIN,TOTAL 0.3 MG/DL (0.1-1.0); BUN/CREATININE RATIO 10; CARBON DIOXIDE 27 MMOL/L (21-32); CHLORIDE 90 MMOL/L (98-107); CREATININE SERUM 0.72 MG/DL (0.60-1.30); GFR ESTIMATED > 60; GLUCOSE 120 MG/DL (70-105); POTASSIUM 4.3 MMOL/L (3.6-5.0); SODIUM 126 MMOL/L (135-145); TOTAL PROTEIN 7.3 GM/DL (6.4-8.2)
== END 2020-04-03 15:35 | disposition home or self-care (01) ==
LOC: ONC 13:03
PROVIDERS: ATTEND Internal Medicine Hematology & Oncology
DX: Z51.11 Encounter for antineoplastic chemotherapy (principal); C34.12 Malignant neoplasm of upper lobe, left bronchus or lung; C79.51 Secondary malignant neoplasm of bone; J43.9 Emphysema, unspecified; G40.909 Epilepsy, unspecified, not intractable, without status epilepticus; E78.5 Hyperlipidemia, unspecified; M25.512 Pain in left shoulder; Z87.891 Personal history of nicotine dependence; Z79.899 Other long term (current) drug therapy; Z92.21 Personal history of antineoplastic chemotherapy
CPT/HCPCS: 36591; 80053; 84443; 85025; 99213

== ENCOUNTER → 2020-02-14 | Outpatient (CLI) | payer MEDICARE, MEDICAID ==
[~2020-02-14] MED LIST changes: -NIVOLUMAB 480 MG in NS (IVPB) CANCER CENTER 100 ML IV SCH; -NS IV 1000 ML (CANCER CTR) IV SCH
== END ==
LOC: WOUNDCARE 12:40
PROVIDERS: ATTEND Surgery
DX: C34.90 Malignant neoplasm of unspecified part of unspecified bronchus or lung (principal); I96 Gangrene, not elsewhere classified; L89.624 Pressure ulcer of left heel, stage 4; I70.244 Atherosclerosis of native arteries of left leg with ulceration of heel and midfoot
CPT/HCPCS: 11042

== ENCOUNTER → 2020-02-21 | Outpatient (CLI) | payer MEDICARE, MEDICAID | LOC: WOUNDCARE 12:44 | PROVIDERS: ATTEND Surgery | DX: C34.90 Malignant neoplasm of unspecified part of unspecified bronchus or lung (principal); I96 Gangrene, not elsewhere classified; I70.244 Atherosclerosis of native arteries of left leg with ulceration of heel and midfoot; L89.624 Pressure ulcer of left heel, stage 4 | CPT/HCPCS: 11042 ==

== ENCOUNTER → 2020-02-28 | Outpatient (CLI) | payer MEDICARE, MEDICAID | LOC: WOUNDCARE 13:05 | PROVIDERS: ATTEND Surgery | DX: L89.624 Pressure ulcer of left heel, stage 4 (principal); I70.244 Atherosclerosis of native arteries of left leg with ulceration of heel and midfoot; C34.90 Malignant neoplasm of unspecified part of unspecified bronchus or lung; I96 Gangrene, not elsewhere classified; Z20.828 Contact with and (suspected) exposure to other viral communicable diseases | CPT/HCPCS: 11042 ==

== ENCOUNTER → 2020-03-09 | Outpatient (CLI) | payer MEDICARE, MEDICAID | LOC: WOUNDCARE 09:55 | PROVIDERS: ATTEND Surgery | DX: C34.90 Malignant neoplasm of unspecified part of unspecified bronchus or lung (principal); L89.624 Pressure ulcer of left heel, stage 4; I70.244 Atherosclerosis of native arteries of left leg with ulceration of heel and midfoot; I96 Gangrene, not elsewhere classified | CPT/HCPCS: 11042 ==

== ENCOUNTER → 2020-03-13 | Outpatient (CLI) | payer MEDICARE, MEDICAID | LOC: WOUNDCARE 12:40 | PROVIDERS: ATTEND Surgery | DX: L89.624 Pressure ulcer of left heel, stage 4 (principal); I70.244 Atherosclerosis of native arteries of left leg with ulceration of heel and midfoot; C34.90 Malignant neoplasm of unspecified part of unspecified bronchus or lung | CPT/HCPCS: 99212 ==

== ENCOUNTER → 2020-04-05 | Outpatient (CLI) | payer MEDICARE, MEDICAID ==
[~2020-04-05] MED LIST changes: +CATHETER FLUSH 10 ML SYR IV PRN; +HOLD METFORMIN - RECEIVED CONTRAST 20 ML VIAL IV SCH; +IOHEXOL 350 MG/ML 100 ML (OMNIPAQUE 350) VIAL IV ONE; +NS 100 ML (IVPB) BAG IV ONE
--- NOTE | 2020-04-05 14:36 | Diagnostic Imaging Report ---
PROCEDURE: CT chest with contrast only. TECHNIQUE: Multiple contiguous axial images were obtained through the chest after administration of intravenous contrast. Auto Exposure Controls were utilized during the CT exam to meet ALARA standards for radiation dose reduction. DATE: April 05, 2020. COMPARISON: CT chest and abdomen February 01, 2020. CT chest August 29, 2019. INDICATION: 64-year-old male, history of non-small cell lung cancer. Productive cough. FINDINGS: There are upper lobe predominant findings of mostly centrilobular emphysema. There is airspace consolidation in the right greater than left lower lobes. There are air bronchograms on the right. The opacification in the left lower lobe is largely linear. There is no identified noncalcified pulmonary nodule or masslike opacification in the lungs. There are mild linear opacities in the right middle lobe and lingula most compatible with mild atelectasis and/or scarring. There is no pneumothorax. There is no pleural effusion. There is no identified central pulmonary embolus. The heart is not enlarged. There is no pericardial effusion. There is no identified abnormally enlarged mediastinal, hilar, or axillary lymph node meeting CT size criteria for adenopathy. The liver is unremarkable in size and contour. The patient is status post cholecystectomy. There are degenerative changes of the spine. There is severe bilateral glenohumeral arthritis. There is central wedging of the L1 vertebral body which is unchanged since at least February 01, 2020. There is no acute bony abnormality. IMPRESSION: CT CHEST. 1. Right greater than left lower lobe airspace consolidation with air bronchograms on the right and mostly linear opacification in the left lower lobe. This is essentially unchanged since February 01, 2020. The degree of consolidation in the right lower lobe is increased since August 29, 2019 and the opacities in the left lower lobe are more linear than seen on August 29, 2019. The left lower lobe consolidation may largely relate to atelectasis and/or scarring although small components of a chronic consolidative process are also considered. The right lower lobe airspace consolidation would be most compatible with a chronic consolidative process and is unlikely related to infectious etiology given stability since February 01, 2020. Malignancy is in the differential diagnosis although no progression has occurred since February 01, 2020. 2. No new or enlarging pulmonary nodule. 3. No mediastinal adenopathy. Dictated by: Dictated on workstation # [id number]
== END ==
LOC: RAD 10:19
PROVIDERS: ATTEND Internal Medicine Hematology & Oncology
DX: C34.12 Malignant neoplasm of upper lobe, left bronchus or lung (principal); J18.1 Lobar pneumonia, unspecified organism
CPT/HCPCS: 71260

== ENCOUNTER 2020-04-13 13:20 | Outpatient (RCR) | payer MEDICARE, MEDICAID ==
[2020-04-05 11:27] LABS: BASOPHILS % (AUTO) 0 % (0-10); EOSINOPHILS % (AUTO) 0 % (0-10); HEMATOCRIT 33 % (40-54); HEMOGLOBIN 10.7 g/dL (13.3-17.7); LYMPHOCYTES # (AUTO) 0.5 10^3/uL (1.0-4.0); LYMPHOCYTES % (AUTO) 7 % (12-44); MEAN CORPUSCULAR HEMOGLOBIN 24 pg (25-34); MEAN CORPUSCULAR HGB CONC 33 g/dL (32-36); MEAN CORPUSCULAR VOLUME 74 fL (80-99); MEAN PLATELET VOLUME 8.6 fL (9.0-12.2); MONOCYTES # (AUTO) 1.1 10^3/uL (0.0-1.0); MONOCYTES % (AUTO) 14 % (0-12); NEUTROPHILS # (AUTO) 6.2 10^3/uL (1.8-7.8); NEUTROPHILS % (AUTO) 80 % (42-75); PLATELET COUNT 267 10^3/uL (130-400); WHITE BLOOD COUNT 7.8 10^3/uL (4.3-11.0)
[2020-04-05 11:48] LABS: ALANINE AMINOTRANSFERASE 10 U/L (0-55); ALKALINE PHOSPHATASE 209 U/L (40-136); BILIRUBIN,TOTAL 0.2 MG/DL (0.1-1.0); BUN/CREATININE RATIO 8; CALCIUM 8.5 MG/DL (8.5-10.1); CARBON DIOXIDE 28 MMOL/L (21-32); CHLORIDE 92 MMOL/L (98-107); CREATININE SERUM 0.71 MG/DL (0.60-1.30); GFR ESTIMATED > 60; GLUCOSE 117 MG/DL (70-105); POTASSIUM 4.1 MMOL/L (3.6-5.0); SODIUM 129 MMOL/L (135-145); TOTAL PROTEIN 7.4 GM/DL (6.4-8.2)
[~2020-04-13 13:20] MED LIST changes: -CATHETER FLUSH 10 ML SYR IV PRN; -HOLD METFORMIN - RECEIVED CONTRAST 20 ML VIAL IV SCH; -IOHEXOL 350 MG/ML 100 ML (OMNIPAQUE 350) VIAL IV ONE; -LISI-552 PO; -LISI10TA2 PO; +LISI10TA25 PO; +LISI20TA26 PO; -NS 100 ML (IVPB) BAG IV ONE; -OXYC-471 PO; +OXYC1TAB11 PO
[2020-06-05] MEDS ORDERED: RIVA10TA PO (13:35)
[2020-06-05] MEDS ORDERED: ROPI1TAB PO ×2 (13:35)
[2020-06-05] MEDS ORDERED: ATOR80TA76 PO ×2 (13:35)
[2020-06-05] MEDS ORDERED: TIOT18CA2 IH ×2 (13:45)
[2020-06-06] MEDS ORDERED: CEFD300C3 PO (10:12)
[2020-06-06] MEDS ORDERED: RIVA10TA PO (10:12)
== END 2020-07-04 | disposition home or self-care (01) ==
LOC: ONC 13:20
PROVIDERS: ATTEND Internal Medicine Hematology & Oncology
DX: C34.12 Malignant neoplasm of upper lobe, left bronchus or lung (principal); C79.51 Secondary malignant neoplasm of bone; J43.9 Emphysema, unspecified; G40.909 Epilepsy, unspecified, not intractable, without status epilepticus; E78.5 Hyperlipidemia, unspecified; Z87.891 Personal history of nicotine dependence; Z79.899 Other long term (current) drug therapy; Z92.21 Personal history of antineoplastic chemotherapy; Z72.0 Tobacco use
CPT/HCPCS: 80053; 85025; 99213

== ENCOUNTER 2020-06-04 10:46 | Inpatient (IN) | payer MEDICARE, MEDICAID ==
[~2020-06-04] VITALS: Ht 187.9 cm; Wt 77.1 kg
[2020-06-04] MEDS ORDERED: methylPREDNISolone 125 MG (Solu-MEDROL) VIAL IV STA (10:51)
[2020-06-04] MEDS ORDERED: RT-ALBUTEROL SULF 2.5 MG/3 ML PRE-MIX VIAL INH STA (10:51)
--- NOTE | 2020-06-04 10:54 | ED Respiratory ---
General Chief Complaint: Respiratory Problems Stated Complaint: SOA Source: patient Exam Limitations: no limitations History of Present Illness Date Seen by Provider: Jun 04, 2020 Time Seen by Provider: 10:43 Initial Comments Patient presents to the ER by EMS from home with chief complaint that he woke up this morning feeling more short of breath than usual. He is typically dependent on 5 L by nasal cannula. He is having some wheezing and occasional productive cough for the past week. Dr. Genao his PCP put him on prednisone and he is on day 4 of this. He has longstanding end-stage COPD. He is had no fevers chills or sick contacts. He denies having a Covid or influenza vaccine. He felt like the prednisone was helping him feel better. His last DuoNeb was last night. He has not had one today. EMS reports that he looks as good as they have ever seen him and his oxygen saturations were 94% on his baseline 5 L when they arrived. Allergies and Home Medications Allergies Coded Allergies: aspirin (Unverified Allergy, Mild, DOES NOT WORK WELL W/ OTHER MEDS, 09/20/19) ibuprofen (Unverified Allergy, Mild, 09/20/19) hydrocodone (Verified Adverse Reaction, Intermediate, BECOMES TOO SEDATED, 09/22/19) Home Medications Acetaminophen 500 Mg Tablet, 1,000 MG PO Q6H PRN for PAIN-MILD (1-4), (Reported) Albuterol Sulfate 18 Gm Hfa.aer.ad, 2 PUFF INH 1300, (Reported) Amlodipine Besylate 5 Mg Tablet, 5 MG PO 0800, (Reported) Atorvastatin Calcium 40 Mg Tablet, 80 MG PO HS Prescribed by: SENG JOSEPH on 12/28/19 1218 Carbamazepine 200 Mg Tablet, 200 MG PO 0300,0800,2300, (Reported) LAST FILLED 07/23/2019 #540/90 DAY SUPPLY Carbamazepine 200 Mg Tablet, 400 MG PO 1500, (Reported) TAKES 2 (200 MG) TABLETS LAST FILLED 07/20/2019 #540/90 DAY SUPPLY Clopidogrel Bisulfate 75 Mg Tablet, 75 MG PO DAILY Prescribed by: SENG JOSEPH on 12/28/19 1218 Fluticasone Propion/Salmeterol 1 Each Blst.w.dev, 1 EACH INH BID, (Reported) Gabapentin 600 Mg Tablet, 600 MG PO 0800,1500, (Reported) Gabapentin 300 Mg Capsule, 300 MG PO 2300, (Reported) Hydrocodone/Acetaminophen 1 Each Tablet, 1 EACH PO Q6H PRN for PAIN-MODERATE (5- 7), (Reported) Lamotrigine 25 Mg Tablet, 25 MG PO 0300, 1500, (Reported) Lamotrigine 100 Mg Tablet, 100 MG PO 1500,2300, (Reported) Meloxicam 7.5 Mg Tablet, 7.5 MG PO 1500, (Reported) Phenytoin Sodium Extended 100 Mg Capsule, 200 MG PO 1500, (Reported) TAKES 2 (100 MG) CAPSULES LAST FILLED #450/90 DAY SUPPLY Phenytoin Sodium Extended 100 Mg Capsule, 100 MG PO 0800,2300, (Reported) LAST FILLED 07/09/2019 #450/90 DAY SUPPLY Ropinirole HCl 0.5 Mg Tablet, 0.5 MG PO HS, (Reported) Patient Home Medication List Home Medication List Reviewed: Yes Review of Systems Review of Systems Constitutional: No chills, No diaphoresis, No fever; malaise EENTM: No ear discharge, No ear pain Respiratory: cough, short of breath, wheezing Cardiovascular: No chest pain, No edema, No Hx of Intervention, No palpitations Gastrointestinal: No abdominal pain, No nausea, No vomiting Genitourinary: No discharge, No dysuria Musculoskeletal: No back pain, No joint pain All Other Systems Reviewed Negative Unless Noted: Yes Past [place]-Vijara-Vsozif Hx Patient Social History Drug of Choice: HX OF RX DRUG ABUSE, CLAIMS NONE FOR 15 YEARS Type Used: Cigars, Cigarettes 2nd Hand Smoke Exposure: Yes Recent Hopitalizations: No Immunizations Up To Date Tetanus Booster (TDap): Less than 5yrs PED Vaccines UTD: Yes Date of Influenza Vaccine: Apr 21, 2018 Seasonal Allergies Seasonal Allergies: Yes Past Medical History Surgeries: Yes (C-SPINE SURGERY FOR FX; LEFT LOWER LEG SURGERY 10/2019) Eye Surgery, Gallbladder, Orthopedic Respiratory: Yes (O2 AT 4L/NC CONTINUOUSLY;LUNG CANCER;MULT EPISODES OF PNEUMONIA) Asthma, Pneumonia, Chronic Bronchitis, Sleep Apnea, COPD Currently Using CPAP: No Currently Using BIPAP: No Cardiac: Yes Heart Murmur, High Cholesterol, Hypertension, Valvular Heart Disease 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) Neuropathy, Paralysis, Seizure Disorder, Vertigo Reproductive Disorders: No Sexually Transmitted Disease: No HIV/AIDS: No Genitourinary: No Gastrointestinal: Yes (CHRONIC N/V) Gastroesophageal Reflux Musculoskeletal: Yes (HX C-SPINE FX/NON-UNION OF ODONTOID; FALLS;POST POLIO-L SIDE WEAKNESS/CONTR) Arthritis, Fractures, Contracture Endocrine: No HEENT: Yes (DENTURES) Loss of Vision: Denies Hearing Impairment: Denies Cancer: Yes Bone, Lung Did You Recieve Any Treatments: Yes What Type of Treatment Did You: Chemotherapy Psychosocial: No Integumentary: Yes (DECUBITUS ULCERS ON SACRUM/BUTTOCKS AREA) Blood Disorders: No Adverse Reaction/Blood Tranf: No Family Medical History Diabetes mellitus 19 MOTHER Hypercholesterolemia 19 FATHER Hypertension 19 FATHER Heart Disease Physical Exam Vital Signs - First Documented 06/04/20 10:51 Temp 38.0 Pulse 113 Resp 27 B/P (MAP) 179/100 (126) Pulse Ox 94 O2 Delivery Nasal Cannula O2 Flow Rate 5.00 Capillary Refill : Height: 6'0" Weight: 174lbs. 3.0oz. 79.871183hc; 23.00 BMI Method:Stated General Appearance: WD/WN, mild distress Eyes: Bilateral Eye Normal Inspection, Bilateral Eye PERRL, Bilateral Eye EOMI HEENT: PERRL/EOMI, TMs normal, pharynx normal Neck: full range of motion, normal inspection Respiratory: respiratory distress (Mild, chronic, oxygen saturation 94% on 5 L by nasal cannula), accessory muscle use, wheezing Cardiovascular: normal peripheral pulses, regular rate, rhythm, tachycardia Gastrointestinal: non tender, soft Extremities: non-tender, normal inspection, normal capillary refill, other (Left lower extremity in a clamshell) Neurologic/Psychiatric: alert, oriented x 3, other (Anxious affect) Skin: normal color, warm/dry Focused Exam Sepsis Stage: Sepsis Possible Source: Pulmonary Lactate Level 06/04/20 11:05: Lactic Acid Level 1.20 Time of Focused Exam: 12:35 Respiratory: No Accessory Muscle Use, Decreased Breath Sounds, Respiratory Distress (mild oxygen saturation mid 90s on baseline 5 L by nasal cannula.), Wheezing (mild) Cardiovascular: Regular Rate, Rhythm, Normal Peripheral Pulses Capillary Refill: Less Than 3 Seconds Peripheral Pulses: 2+ Dorsalis Pedis (R), 2+ Left Dors-Pedis (L) Skin: normal color, warm/dry, ecchymosis Lactic Acid Level Laboratory Tests Test 3/7/21 11:05 Lactic Acid Level 1.20 MMOL/L (0.50-2.00) Within 3hrs of presentation: Admin fluids, Admin ABX, Blood cultures prior to A BX's, Focus exam, Lactate level Procedures/Interventions Date of ETT Placement: Mar 09, 2017 Time of ETT Placement: 181 Suture Size: 5-0 Progress/Results/Core Measures Suspected Sepsis SIRS Temperature: Pulse: Respiratory Rate: Laboratory Tests 06/04/20 11:05: White Blood Count 12.0H Blood Pressure / Mean: 06/04/20 11:05: Lactic Acid Level 1.20 Laboratory Tests 06/04/20 11:05: Creatinine 0.72, INR Comment 1.0, Platelet Count 314, Total Bilirubin 0.4 Results/Orders Lab Results Laboratory Tests Test 06/04/20 11:00 06/04/20 11:05 Range/Units Urine Color YELLOW Urine Clarity SL CLOUDY Urine pH 8.5 5-9 Urine Specific [place] 1.020 1.016-1.022 Urine Protein NEGATIVE NEGATIVE Urine Glucose (UA) NEGATIVE NEGATIVE Urine Ketones NEGATIVE NEGATIVE Urine Nitrite NEGATIVE NEGATIVE Urine Bilirubin NEGATIVE NEGATIVE Urine Urobilinogen 1.0 < = 1.0 MG/DL Urine Leukocyte Esterase NEGATIVE NEGATIVE Urine RBC (Auto) NEGATIVE NEGATIVE Urine RBC NONE /HPF Urine WBC 10-25 H /HPF Urine Squamous Epithelial Cells 2-5 /HPF Urine Crystals NONE /LPF Urine Bacteria TRACE /HPF Urine Casts NONE /LPF Urine Mucus NEGATIVE /LPF Urine Culture Indicated NO White Blood Count 12.0 H 4.3-11.0 10^3/uL Red Blood Count 4.61 4.30-5.52 10^6/uL Hemoglobin 10.9 L 13.3-17.7 g/dL Hematocrit 35 L 40-54 % Mean Corpuscular Volume 76 L 80-99 fL Mean Corpuscular Hemoglobin 24 L 25-34 pg Mean Corpuscular Hemoglobin Concent 31 L 32-36 g/dL Red Cell Distribution Width 17.3 H 10.0-14.5 % Platelet Count 314 130-400 10^3/uL Mean Platelet Volume 8.9 L 9.0-12.2 fL Immature Granulocyte % (Auto) 0 % Neutrophils (%) (Auto) 87 H 42-75 % Lymphocytes (%) (Auto) 5 L 12-44 % Monocytes (%) (Auto) 8 0-12 % Eosinophils (%) (Auto) 0 0-10 % Basophils (%) (Auto) 0 0-10 % Neutrophils # (Auto) 10.4 H 1.8-7.8 10^3/uL Lymphocytes # (Auto) 0.5 L 1.0-4.0 10^3/uL Monocytes # (Auto) 0.9 0.0-1.0 10^3/uL Eosinophils # (Auto) 0.0 0.0-0.3 10^3/uL Basophils # (Auto) 0.0 0.0-0.1 10^3/uL Immature Granulocyte # (Auto) 0.1 0.0-0.1 10^3/uL Neutrophils % (Manual) 90 % Lymphocytes % (Manual) 5 % Monocytes % (Manual) 4 % Eosinophils % (Manual) 0 % Basophils % (Manual) 0 % Band Neutrophils 1 % Hypochromasia SLIGHT Anisocytosis SLIGHT Target Cells SLIGHT Prothrombin Time 13.6 12.2-14.7 SEC INR Comment 1.0 0.8-1.4 Activated Partial Thromboplast Time 35 24-35 SEC Blood Gas Puncture Site RT RAD Blood Gas Patient Temperature 38.0 Arterial Blood pH 7.38 7.37-7.43 Arterial Blood Partial Pressure CO2 54 H 35-45 MMHG Arterial Blood Partial Pressure O2 129 H 79-93 MMHG Arterial Blood HCO3 31 H 23-27 MMOL/L Arterial Blood Total CO2 32.5 H 21.0-31.0 MMOL/L Arterial Blood Oxygen Saturation 97 94-100 % Arterial Blood Base Excess 6.2 H -2.5-2.5 MMOL/L Johan Test YES-POS Blood Gas Ventilator Setting NO Blood Gas Inspired Oxygen 5 Sodium Level 131 L 135-145 MMOL/L Potassium Level 5.0 3.6-5.0 MMOL/L Chloride Level 92 L 98-107 MMOL/L Carbon Dioxide Level 29 21-32 MMOL/L Anion Gap 10 5-14 MMOL/L Blood Urea Nitrogen 10 7-18 MG/DL Creatinine 0.72 0.60-1.30 MG/DL Estimat Glomerular Filtration Rate > 60 BUN/Creatinine Ratio 14 Glucose Level 107 H 70-105 MG/DL Lactic Acid Level 1.20 0.50-2.00 MMOL/L Calcium Level 8.1 L 8.5-10.1 MG/DL Corrected Calcium 8.1 L 8.5-10.1 MG/DL Total Bilirubin 0.4 0.1-1.0 MG/DL Aspartate Amino Transf (AST/SGOT) 12 5-34 U/L Alanine Aminotransferase (ALT/SGPT) 11 0-55 U/L Alkaline Phosphatase 180 H 40-136 U/L Total Protein 7.6 6.4-8.2 GM/DL Albumin 4.0 3.2-4.5 GM/DL Coronavirus 2019 (MARGI) Negative Negative Micro Results Microbiology 06/04/20 Influenza Types A,B Antigen (VY) - Final, Complete My Orders Orders - KALEN LUZ Ed Iv/Invasive Line Start (06/04/20 10:51) Lactated Ringers (Lr 1000 Ml Iv Solution (06/04/20 11:00) Albuterol Pre-Mix Nebs (Rt) (Proventil (06/04/20 10:51) Methylprednisolone Sod Succ (Solu-Medrol (06/04/20 10:51) Chest 1 View, Ap/Pa Only (06/04/20 10:51) Svn Small Volume Nebulizer (06/04/20 10:51) Cbc With Automated Diff (06/04/20 10:51) Comprehensive Metabolic Panel (06/04/20 10:51) Arterial Blood Gas (06/04/20 10:54) Covid 19 Inhouse Test (06/04/20 10:54) Influenza A And B Antigens (06/04/20 10:54) Blood Culture (06/04/20 10:57) Sputum Culture (06/04/20 10:57) Urinalysis (06/04/20 10:57) Urine Culture (06/04/20 10:57) Protime With Inr (06/04/20 10:57) Partial Thromboplastin Time (06/04/20 10:57) Acetaminophen Tablet (Tylenol Tablet) (06/04/20 11:00) Ed Iv/Invasive Line Start (06/04/20 10:57) Ed Iv/Invasive Line Start (06/04/20 10:57) Vital Signs Adult Sepsis Patie Q15M (06/04/20 10:57) O2 (06/04/20 10:57) Remove Rings In Anticipation O (06/04/20 10:57) Lactic Acid Analyzer (06/04/20 10:57) Lactated Ringers (Lr 1000 Ml Iv Solution (06/04/20 11:00) Cefepime Injection (Maxipime Injection) (06/04/20 11:00) Vancomycin Injection (Vancomycin Injecti (06/04/20 11:00) Manual Differential (06/04/20 11:05) Vancomycin Injection (Vancomycin Injecti (06/04/20 11:45) Coronavirus Sars-Cov-2 So 2018 (06/04/20 11:36) Medications Given in ED Current Medications Medications Dose Ordered Sig/Porfirio Route Start Time Stop Time Status Last Admin Dose Admin Acetaminophen 1,000 mg ONCE PRN PO 06/04/20 11:00 06/04/20 11:22 DC 06/04/20 11:21 1,000 MG Cefepime HCl 1000 mg/Sterile Water 10 ml @ 200 mls/hr ONCE ONCE IV 06/04/20 11:00 06/04/20 11:02 DC 06/04/20 11:22 200 MLS/HR Lactated Ringer's 1,000 ml @ 0 mls/hr Q0M ONCE IV 06/04/20 11:00 06/04/20 11:01 DC 06/04/20 11:16 1,000 MLS/HR Lactated Ringer's 1,000 ml @ 0 mls/hr Q0M ONCE IV 06/04/20 11:00 06/04/20 11:01 DC 06/04/20 11:22 1,000 MLS/HR Vital Signs/I&O 06/04/20 06/04/20 06/04/20 10:51 11:05 11:10 Temp 38.0 Pulse 113 Resp 27 B/P (MAP) 179/100 (126) Pulse Ox 94 94 93 O2 Delivery Nasal Cannula Nasal Cannula Nasal Cannula O2 Flow Rate 5.00 5.00 5.00 Capillary Refill : Progress Note #1: Time: 12:26 Progress Note Septic work-up. Initial Covid is negative but were getting a send out PCR. Influenza is negative. He has an infiltrate probably consistent with a pneumonia so broad-spectrum antibiotics including cefepime and vancomycin have been initiated. He is on his baseline for oxygen use but is a very brittle COPD patient. Progress Note #2: Time: 13:30 Progress Note After breathing treatment the patient's respiratory status significantly improved. He is no longer having as much wheezing and increased work of breathing. He is not using a sensory muscles nor is he tripoding. His ABG demonstrates chronic respiratory distress. X-ray demonstrates pneumonia and so broad-spectrum antibiotics and fluids were already initiated. He has sepsis and a UTI and we will put a Mena catheter in because he says he is too weak to even hold his urinal. Diagnostic Imaging Diagonstic Imaging: Xray Plain Films/CT/US/NM/MRI: chest Comments NAME: CR QUIJAON [facility] REC#: [id number] PT STATUS: REG ER : 1955 PHYSICIAN: KALEN LUZ MD ADMIT DATE: 06/04/20/ER Draft Date of Exam:06/04/20 CHEST 1 VIEW, AP/PA ONLY INDICATION: Shortness of air, cough. Home oxygen utilization.. TECHNIQUE: Single view chest 11:44 AM. CORRELATION STUDY: 12/27/2019 FINDINGS: Right IJ Ezxpiq-d-Goye catheter tip over the SVC, stable. Heart size me stem are generally stable. Streaky markings at both lung bases again demonstrated. These overall appear to be relatively stable from prior study, likely largely chronic scarring or atelectasis. There is question slight increased markings left midlung field which more focal minimal area of infiltrate is not excluded. Rather markedly advanced degenerative changes of both shoulders including joint space narrowing osteophyte and subchondral sclerosis and cyst formation IMPRESSION: 1. Likely chronic scarring or atelectasis at the lower lung lo, superimposed on rather advanced emphysematous changes of the lung. There may be very minimal early infiltrate developing at the left mid and lower lung field. Followup imaging if clinically warranted. Dictated on workstation # [id number] Dict: 06/04/20 1147 Trans: 06/04/20 1204 CV [id number] Interpreted by: LANA VOGEL DO Electronically signed by: Reviewed: Reviewed by Me Departure Communication (Admissions) Time/Spoke to Admitting Phy: 12:35 Discussed the case with Dr. Joseph and he agrees to accept the patient to the floor on baseline oxygen, cefepime and vancomycin. Impression Primary Impression: Pneumonia, community acquired Qualified Codes: J18.9 - Pneumonia, unspecified organism Additional Impressions: Person under investigation for COVID-19 Sepsis Qualified Codes: A41.9 - Sepsis, unspecified organism Urinary tract infection Qualified Codes: N39.0 - Urinary tract infection, site not specified Disposition: ADMITTED INPATIENT Condition: Stable Admissions Decision to Admit Reason: Admit from ER (General) Decision to Admit/Date: Jun 04, 2020 Time/Decision to Admit Time: 11:45 Departure-Patient Inst. Referrals: AMANDEEP GENAO DO (PCP/Family) Primary Care Physician KALEN LUZ Jun 04, 2020 10:54
[2020-06-04] MEDS ORDERED: ACETAMINOPHEN 500 MG TAB (TYLENOL) PO PRN (11:00)
[2020-06-04] MEDS ORDERED: LACTATED RINGERS 1,000 ML IV ONE ×2 (11:00)
[2020-06-04] MEDS ORDERED: CEFEPIME INJECTION 1,000 MG in WATER (STERILE) FOR INJECTION 10 ML IV ONE (11:00)
[2020-06-04] MEDS ORDERED: VANCOMYCIN INJECTION 1,500 MG in NS IV 500 ML 500 ML IV ONE (11:00)
[2020-06-04 11:04] LABS: BILIRUBIN,URINE NEGATIVE (NEGATIVE); CLARITY,URINE SL CLOUDY; COLOR,URINE YELLOW; GLUCOSE, URINE (UA) NEGATIVE (NEGATIVE); KETONES,URINE NEGATIVE (NEGATIVE); LEUKOCYTE ESTERASE ,URINE NEGATIVE (NEGATIVE); NITRITE,URINE NEGATIVE (NEGATIVE); PH,URINE 8.5 (5-9); PROTEIN,URINE NEGATIVE (NEGATIVE)
[2020-06-04 11:12] LABS: BACTERIA,URINE TRACE /HPF
[2020-06-04 11:15] LABS: ABG BASE EXCESS 6.2 MMOL/L (-2.5-2.5); ABG OXYGEN SATURATION 97 % (94-100); ABG PCO2 54 MMHG (35-45); ABG PH 7.38 (7.37-7.43); ABG PO2 129 MMHG (79-93); ABG TCO2 32.5 MMOL/L (21.0-31.0)
[2020-06-04 11:17] LABS: ALLENS TEST YES-POS; INSPIRED O2 5; VENTILATOR NO
[2020-06-04 11:20] LABS: BASOPHILS % (AUTO) 0 % (0-10); EOSINOPHILS % (AUTO) 0 % (0-10); HEMATOCRIT 35 % (40-54); HEMOGLOBIN 10.9 g/dL (13.3-17.7); LYMPHOCYTES # (AUTO) 0.5 10^3/uL (1.0-4.0); LYMPHOCYTES % (AUTO) 5 % (12-44); MEAN CORPUSCULAR HEMOGLOBIN 24 pg (25-34); MEAN CORPUSCULAR HGB CONC 31 g/dL (32-36); MEAN CORPUSCULAR VOLUME 76 fL (80-99); MEAN PLATELET VOLUME 8.9 fL (9.0-12.2); MONOCYTES # (AUTO) 0.9 10^3/uL (0.0-1.0); MONOCYTES % (AUTO) 8 % (0-12); NEUTROPHILS # (AUTO) 10.4 10^3/uL (1.8-7.8); NEUTROPHILS % (AUTO) 87 % (42-75); PLATELET COUNT 314 10^3/uL (130-400)
[2020-06-04 11:28] LABS: CHLORIDE 92 MMOL/L (98-107); SODIUM 131 MMOL/L (135-145)
[2020-06-04 11:29] LABS: PROTHROMBIN TIME PATIENT 13.6 SEC (12.2-14.7)
[2020-06-04 11:30] LABS: CALCIUM 8.1 MG/DL (8.5-10.1)
[2020-06-04 11:31] LABS: GLUCOSE 107 MG/DL (70-105); TOTAL PROTEIN 7.6 GM/DL (6.4-8.2)
[2020-06-04 11:32] LABS: BILIRUBIN,TOTAL 0.4 MG/DL (0.1-1.0); CARBON DIOXIDE 29 MMOL/L (21-32)
[2020-06-04 11:34] LABS: ALKALINE PHOSPHATASE 180 U/L (40-136); CREATININE SERUM 0.72 MG/DL (0.60-1.30); GFR ESTIMATED > 60
[2020-06-04 11:35] LABS: BUN/CREATININE RATIO 14
[2020-06-04 11:37] LABS: ALANINE AMINOTRANSFERASE 11 U/L (0-55)
[2020-06-04 11:43] LABS: BAND NEUTROPHILS 1 %; NEUTROPHILS % (MANUAL) 90 %
[2020-06-04 11:44] LABS: ANISOCYTOSIS SLIGHT; BASOPHILS % (MANUAL) 0 %; EOSINOPHILS % (MANUAL) 0 %; HYPOCHROMASIA SLIGHT; LYMPHOCYTES % (MANUAL) 5 %; MONOCYTES % (MANUAL) 4 %; TARGET CELLS SLIGHT
[2020-06-04] MEDS ORDERED: VANCOMYCIN INJECTION 1,500 MG in NS IV 500 ML 500 ML IV NR (11:45)
--- NOTE | 2020-06-04 12:05 | Diagnostic Imaging Report ---
INDICATION: Shortness of air, cough. Home oxygen utilization.. TECHNIQUE: Single view chest 11:44 AM. CORRELATION STUDY: 12/27/2019 FINDINGS: Right IJ [id number] catheter tip over the SVC, stable. Heart size me stem are generally stable. Streaky markings at both lung bases again demonstrated. These overall appear to be relatively stable from prior study, likely largely chronic scarring or atelectasis. There is question slight increased markings left midlung field which more focal minimal area of infiltrate is not excluded. Rather markedly advanced degenerative changes of both shoulders including joint space narrowing osteophyte and subchondral sclerosis and cyst formation IMPRESSION: 1. Likely chronic scarring or atelectasis at the lower lung lo, superimposed on rather advanced emphysematous changes of the lung. There may be very minimal early infiltrate developing at the left mid and lower lung field. Followup imaging if clinically warranted. Dictated by: Dictated on workstation # [id number]
[2020-06-04 13:23] VITALS: BP 145/80
[2020-06-04] MEDS ORDERED: ACETAMINOPHEN 325 MG TABLET PO PRN (13:45)
[2020-06-04] MEDS ORDERED: LACTATED RINGERS 1,000 ML IV SCH (13:45)
[2020-06-04] MEDS ORDERED: ONDANSETRON 4 MG/2 ML (SDV) Z0FRAN IV PRN (13:45)
[2020-06-04 13:57] VITALS: BP 145/80
[2020-06-04 16:00] VITALS: BP 90/53
[2020-06-04] MEDS: CEFEPIME 1,000 MG/SWFI 10 ML IV PUSH IV SCH ×4 (16:54→23:16)
[2020-06-04] MEDS: LACTATED RINGERS 1,000 ML IV SCH ×2 (16:54→23:19)
[2020-06-04 17:38] VITALS: BP 173/83
[2020-06-04] MEDS ORDERED: lamoTRIgine 25 MG (LaMICtal) TAB ONE (17:40)
[2020-06-04] MEDS ORDERED: LORazepam INJ 2 MG/ML (ATIVAN) VIAL IVP PRN (17:45)
[2020-06-04] MEDS: lamoTRIgine 25 MG (LaMICtal) TAB PO SCH (17:48)
[2020-06-04] MEDS: PHENYTOIN 100 MG (DILANTIN) CAP PO SCH ×2 (17:48→23:16)
[2020-06-04] MEDS: carBAMazepine 200 MG (TEGretol) TAB PO SCH ×2 (17:49→23:16)
[2020-06-04] MEDS ORDERED: RT-ALBUTEROL/IPRATROPIUM 3 ML (DUONEB) VIAL INH SCH (18:00)
[2020-06-04] MEDS: RT-ALBUTEROL INHALER HFA (VENTOLIN HFA) 18 GM IH SCH ×2 (18:39→22:39)
[2020-06-04] MEDS: IPRATROPIUM INHALER (ATROVENT) 12.9 GM INH SCH ×2 (18:43→22:40)
[2020-06-04 20:00] VITALS: BP 128/84
[2020-06-04] MEDS: rOPINIRole 0.25 MG (REQUIP) TAB PO SCH (20:05)
[2020-06-04] MEDS: VANCOMYCIN 1250 MG/NS 250 ML IVPB IV SCH ×2 (21:19)
[2020-06-04 23:22] VITALS: BP 133/81
[2020-06-05] VITALS (7 sets, daily range): BP systolic 120–162; BP diastolic 74–90
[2020-06-05] MEDS: LACTATED RINGERS 1,000 ML IV SCH ×2 (00:55→08:10)
[2020-06-05] MEDS: RT-ALBUTEROL INHALER HFA (VENTOLIN HFA) 18 GM IH SCH (02:34)
[2020-06-05] MEDS: IPRATROPIUM INHALER (ATROVENT) 12.9 GM INH SCH (02:36)
[2020-06-05] MEDS: lamoTRIgine 25 MG (LaMICtal) TAB PO SCH ×2 (03:24→14:34)
[2020-06-05] MEDS: carBAMazepine 200 MG (TEGretol) TAB PO SCH ×4 (03:24→22:52)
[2020-06-05] MEDS: CEFEPIME 1,000 MG/SWFI 10 ML IV PUSH IV SCH ×8 (05:38→23:46)
[2020-06-05 05:49] LABS: BASOPHILS % (AUTO) 0 % (0-10); EOSINOPHILS % (AUTO) 0 % (0-10); HEMATOCRIT 30 % (40-54); HEMOGLOBIN 9.5 g/dL (13.3-17.7); LYMPHOCYTES # (AUTO) 0.4 10^3/uL (1.0-4.0); LYMPHOCYTES % (AUTO) 7 % (12-44); MEAN CORPUSCULAR HEMOGLOBIN 24 pg (25-34); MEAN CORPUSCULAR HGB CONC 32 g/dL (32-36); MEAN CORPUSCULAR VOLUME 75 fL (80-99); MEAN PLATELET VOLUME 8.7 fL (9.0-12.2); MONOCYTES # (AUTO) 0.7 10^3/uL (0.0-1.0); MONOCYTES % (AUTO) 11 % (0-12); NEUTROPHILS # (AUTO) 5.3 10^3/uL (1.8-7.8); NEUTROPHILS % (AUTO) 82 % (42-75); PLATELET COUNT 277 10^3/uL (130-400); WHITE BLOOD COUNT 6.4 10^3/uL (4.3-11.0)
[2020-06-05 06:10] LABS: ALBUMIN 3.4 GM/DL (3.2-4.5); CHLORIDE 93 MMOL/L (98-107); POTASSIUM 4.1 MMOL/L (3.6-5.0); SODIUM 130 MMOL/L (135-145)
[2020-06-05 06:11] LABS: CALCIUM 8.2 MG/DL (8.5-10.1)
[2020-06-05 06:13] LABS: GLUCOSE 106 MG/DL (70-105); TOTAL PROTEIN 6.2 GM/DL (6.4-8.2)
[2020-06-05 06:14] LABS: CARBON DIOXIDE 29 MMOL/L (21-32)
[2020-06-05 06:15] LABS: BILIRUBIN,TOTAL 0.3 MG/DL (0.1-1.0)
[2020-06-05 06:16] LABS: ALKALINE PHOSPHATASE 131 U/L (40-136); CREATININE SERUM 0.66 MG/DL (0.60-1.30); GFR ESTIMATED > 60
[2020-06-05 06:17] LABS: BUN/CREATININE RATIO 14
[2020-06-05 06:19] LABS: ALANINE AMINOTRANSFERASE 10 U/L (0-55)
[2020-06-05] MEDS ORDERED: RT-ALBUTEROL/IPRATROPIUM 3 ML (DUONEB) VIAL ONE (06:43)
[2020-06-05] MEDS: RT-ALBUTEROL/IPRATROPIUM 3 ML (DUONEB) VIAL INH PRN ×5 (06:51→17:06)
--- NOTE | 2020-06-05 07:47 | Diagnostic Imaging Report ---
EXAMINATION: Chest 1 view HISTORY: Pneumonia COMPARISON: Chest radiograph 06/04/2020 FINDINGS: Heart size and pulmonary vasculature are normal. Stable appearance of linear opacity within the right lung base. Minimally decreased airspace opacities within the lung bases compared to 06/04/2020. No pleural effusion or pneumothorax. Right-sided portacatheter is unchanged. The osseous structures are intact. IMPRESSION: 1. Slightly decreased opacities in the lung bases which likely represents atelectasis or consolidation. Likely chronic atelectasis or scarring within the right lung base. Dictated by: Dictated on workstation # [id number]
[2020-06-05] MEDS: PHENYTOIN 100 MG (DILANTIN) CAP PO SCH ×3 (08:10→22:52)
[2020-06-05] MEDS: RT-ALBUTEROL/IPRATROPIUM 3 ML (DUONEB) VIAL INH SCH ×4 (10:00→22:20)
[2020-06-05] MEDS: VANCOMYCIN 1250 MG/NS 250 ML IVPB IV SCH ×4 (10:35→21:55)
--- NOTE | 2020-06-05 10:54 | History & Physical-Hospitalist ---
History of Present Illness HPI/Chief Complaint Pt is a 64yoCM known to me from multiple previous admissions with a history of end stage COPD, metastatic lung cancer s/p Opdivo treatment who presented to the ER due to shortness of breath. He states that he was on treatment with prednisone by Dr Feng but continued to feel short of breath. He was found to have a left sided pneumonia in the ER and fever on arrival and leukocytosis. He was admitted due to sepsis from this. This morning he reports feeling better but is needing a breathing treatment. He is actually down on his oxygen from baseline (needing 3lpm and satting 95%, down from 5lpm baseline). He is to have surgery on his leg next week at [facility] Source: patient Date Seen 06/05/20 Time Seen by a Provider: 10:49 Attending Physician Nicci Ndiaye MD PCP Micky Feng DO Referring Physician Date of Admission Jun 04, 2020 at 11:37 Home Medications & Allergies Home Medications Reviewed patient Home Medication Reconciliation performed by pharmacy medication reconciliations mechanical engineering technician and/or nursing. Patients Allergies have been reviewed. Allergies Allergies Coded Allergies aspirin (Unverified Allergy, Mild, DOES NOT WORK WELL W/ OTHER MEDS, 09/20/19) ibuprofen (Unverified Allergy, Mild, 09/20/19) hydrocodone (Verified Adverse Reaction, Intermediate, BECOMES TOO SEDATED, 09/22/19) Past Lxsulxl-Fueuqv-Cdeagf Hx Past Med/Social Hx: Reviewed Nursing Past Med/Soc Hx Patient Social History Marrital Status: Employed/Student: unemployed Alcohol Use: Past History Recreational Drug Use: Yes (not current, 15 years ago-ETOH and PO drugs) Drug of Choice: HX OF RX DRUG ABUSE, CLAIMS NONE FOR 15 YEARS Smoking Status: Current Everyday Smoker Former Smoker, Quit: Jan 29, 2017 Type Used: Cigars, Cigarettes 2nd Hand Smoke Exposure: Yes Recent Foreign Travel: No Contact w/other who traveled: No Recent Hopitalizations: No Recent Infectious Disease Expo: No Immunizations Up To Date Tetanus Booster (TDap): Less than 5yrs Pediatric: Yes Date of Influenza Vaccine: Apr 21, 2018 Seasonal Allergies Seasonal Allergies: Yes Past Medical History Surgeries: Eye Surgery, Gallbladder, Orthopedic Respiratory: COPD, Emphysema, Pneumonia Currently Using CPAP: No Currently Using BIPAP: No Cardiac: Heart Murmur, High Cholesterol, Hypertension, Valvular Heart Disease Neurological: Neuropathy, Paralysis, Seizure Disorder, Vertigo Reproductive: No Sexually Transmitted Disease: No HIV/AIDS: No Gastrointestinal: Gastroesophageal Reflux Musculoskeletal: Arthritis, Fractures, Contracture Loss of Vision: Denies Hearing Impairment: Denies Cancer: Bone, Lung Did You Recieve Any Treatments: Yes What Type of Treatment Did You: Chemotherapy History of Blood Disorders: No Adverse Reaction to Blood Salcedo: No Family History Reviewed Nursing Family Hx Diabetes mellitus 19 MOTHER Hypercholesterolemia 19 FATHER Hypertension 19 FATHER Heart Disease Review of Systems Constitutional: No chills; fever, malaise Respiratory: cough, short of breath Cardiovascular: No chest pain, No edema Physical Exam Physical Exam Vital Signs Vital Signs - First Documented 06/04/20 06/05/20 10:51 15:23 Temp 38.0 Pulse 113 Resp 27 B/P (MAP) 179/100 (126) Pulse Ox 94 O2 Delivery Nasal Cannula O2 Flow Rate 5.00 FiO2 36 Capillary Refill : Less Than 3 Seconds Height, Weight, BMI Height: 6'0" Weight: 174lbs. 3.0oz. [id number]; 21.83 BMI Method:Stated General Appearance: No Apparent Distress, Chronically ill, Thin HEENT: PERRL/EOMI, Moist Mucous Membranes; No Scleral Icterus (L), No Scleral Icterus (R); Other (neck contorted, chronic) Respiratory: No Accessory Muscle Use; No Rhonci; Wheezing (scant), Other (on 3lpm) Cardiovascular: Regular Rate, Rhythm, No Murmur Gastrointestinal: Normal Bowel Sounds, Non Tender, Soft Extremity: No Calf Tenderness, No Pedal Edema Neurologic/Psychiatric: Alert, Oriented x3, Normal Mood/Affect Skin: Normal Color, Warm/Dry Results Results/Procedures Labs Laboratory Tests 06/04/20 11:05 06/05/20 05:40 Patient resulted labs reviewed. Imaging: Reviewed Imaging Report Imaging [facility], [place] NAME: MACIECR Marie [facility] REC#: [id number] PT STATUS: ADM IN : 1955 PHYSICIAN: KALEN LUZ MD ADMIT DATE: 06/04/20 Signed Date of Exam:06/04/20 CHEST 1 VIEW, AP/PA ONLY INDICATION: Shortness of air, cough. Home oxygen utilization.. TECHNIQUE: Single view chest 11:44 AM. CORRELATION STUDY: 12/27/2019 FINDINGS: Right IJ Gkccye-i-Njxq catheter tip over the SVC, stable. Heart size me stem are generally stable. Streaky markings at both lung bases again demonstrated. These overall appear to be relatively stable from prior study, likely largely chronic scarring or atelectasis. There is question slight increased markings left midlung field which more focal minimal area of infiltrate is not excluded. Rather markedly advanced degenerative changes of both shoulders including joint space narrowing osteophyte and subchondral sclerosis and cyst formation IMPRESSION: 1. Likely chronic scarring or atelectasis at the lower lung lo, superimposed on rather advanced emphysematous changes of the lung. There may be very minimal early infiltrate developing at the left mid and lower lung field. Followup imaging if clinically warranted. Dictated by: Dictated on workstation # [id number] Dict: 06/04/20 1147 Trans: 06/04/20 1621 [facility] [id number] Interpreted by: LANA VOGEL DO Electronically signed by: LANA VOGEL DO 06/04/20 1621 Assessment/Plan Admission Diagnosis Sepsis from pneumonia Admission Status: Inpatient Order (span 2 midnights) Reason for Inpatient Admission: see below Assessment and Plan Sepsis from community acquired pneumonia- POA End stage COPD Metastatic Lung cancer- in remission per patient Continue on IV abx Await cultures Seizure disorder Continue home meds Seizure precautions Chronic pain Continue home meds Plan is for surgery on leg on 06/14 needs to hold plavix starting tomorrow Anemia Chronic, stable Hyponatremia Chronic, stable Diagnosis/Problems Diagnosis/Problems (1) Sepsis Status: Acute Qualifiers: Sepsis type: sepsis due to unspecified organism Sepsis acute organ dysfunction status: without acute organ dysfunction Qualified Codes: A41.9 - Sepsis, unspecified organism (2) Pneumonia, community acquired Status: Acute Qualifiers: Laterality: left Lung location: lower lobe of lung Qualified Codes: J18.9 - Pneumonia, unspecified organism (3) Person under investigation for COVID-19 Status: Resolved Resolution Date/Time: 06/05/20 @ 16:07 (4) Lung cancer metastatic to bone Status: Chronic (5) Chronic respiratory failure with hypoxia Status: Chronic (6) HLD (hyperlipidemia) Status: Chronic Qualifiers: Hyperlipidemia type: mixed hyperlipidemia Qualified Codes: E78.2 - Mixed hyperlipidemia (7) HTN (hypertension) Status: Chronic Qualifiers: Hypertension type: essential hypertension Qualified Codes: I10 - Essential (primary) hypertension (8) Seizure disorder Status: Chronic (9) COPD (chronic obstructive pulmonary disease) Status: Chronic Qualifiers: COPD type: COPD with acute lower respiratory infection Qualified Codes: J44.0 - Chronic obstructive pulmonary disease with (acute) lower respiratory infection (10) Closed left fibular fracture Status: Chronic Qualifiers: Encounter type: sequela (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
[2020-06-05] MEDS ORDERED: GABAPENTIN 600 MG (NEURONTIN) TAB PO ONE (11:15)
[2020-06-05] MEDS ORDERED: ATOR80TA76 PO (13:35)
[2020-06-05] MEDS ORDERED: RIVA10TA PO (13:35)
[2020-06-05] MEDS ORDERED: ROPI1TAB PO (13:35)
[2020-06-05] MEDS ORDERED: TIOT18CA2 IH (13:45)
[2020-06-05] MEDS: GABAPENTIN 600 MG (NEURONTIN) TAB PO SCH (14:39)
[2020-06-05] MEDS ORDERED: MELOXICAM 7.5 MG (MOBIC) TABLET PO ONE (14:49)
[2020-06-05] MEDS ORDERED: MELOXICAM 7.5 MG (MOBIC) TABLET PO SCH (15:00)
[2020-06-05] MEDS ORDERED: TIOTROPIUM BROMIDE (SPIRIVA) 5'S INHALER IH SCH (15:00)
[2020-06-05] MEDS: rOPINIRole 0.25 MG (REQUIP) TAB PO SCH (21:01)
[2020-06-05] MEDS ORDERED: GABAPENTIN 300 MG (NEURONTIN) CAP PO SCH (23:00)
[2020-06-06] MEDS: RT-ALBUTEROL/IPRATROPIUM 3 ML (DUONEB) VIAL INH SCH ×3 (02:23→10:54)
[2020-06-06] MEDS ORDERED: RIVAROXABAN 10 MG TABLET (XARELTO) PO SCH (03:00)
[2020-06-06] MEDS: lamoTRIgine 25 MG (LaMICtal) TAB PO SCH (03:12)
[2020-06-06] MEDS: carBAMazepine 200 MG (TEGretol) TAB PO SCH ×2 (03:12→08:08)
[2020-06-06] MEDS: CEFEPIME 1,000 MG/SWFI 10 ML IV PUSH IV SCH ×2 (05:57)
[2020-06-06 08:00] VITALS: BP 140/85
[2020-06-06] MEDS ORDERED: amLODIPine 5 MG (NORVASC) TAB PO SCH (08:00)
[2020-06-06] MEDS ORDERED: rOPINIRole 1 MG (REQUIP) TABLET PO SCH (08:00)
[2020-06-06] MEDS ORDERED: UMECLIDINIUM BROMIDE (INCRUSE ELLIPTA) 7'S IH SCH (08:00)
[2020-06-06] MEDS: PHENYTOIN 100 MG (DILANTIN) CAP PO SCH (08:08)
[2020-06-06] MEDS: GABAPENTIN 600 MG (NEURONTIN) TAB PO SCH (08:08)
--- NOTE | 2020-06-06 10:10 | Discharge Summary ---
Diagnosis/Chief Complaint Date of Admission Jun 04, 2020 at 11:37 Date of Discharge Admission Diagnosis Sepsis from pneumonia Primary Care Amandeep Genao DO Discharge Diagnosis (1) Sepsis Status: Acute (2) Pneumonia, community acquired Status: Acute (3) Person under investigation for COVID-19 Status: Resolved (4) Lung cancer metastatic to bone Status: Chronic (5) Chronic respiratory failure with hypoxia Status: Chronic (6) HLD (hyperlipidemia) Status: Chronic (7) HTN (hypertension) Status: Chronic (8) Seizure disorder Status: Chronic (9) COPD (chronic obstructive pulmonary disease) Status: Chronic (10) Closed left fibular fracture Status: Chronic (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 (12) Hyponatremia Status: Acute (13) COPD exacerbation Status: Acute Discharge Summary Discharge Physical Exam Allergies: Coded Allergies: aspirin (Unverified Allergy, Mild, DOES NOT WORK WELL W/ OTHER MEDS, 09/20/19) ibuprofen (Unverified Allergy, Mild, 09/20/19) hydrocodone (Verified Adverse Reaction, Intermediate, BECOMES TOO SEDATED, 09/22/19) Vitals & I&Os Vital Signs Date Time Temp Pulse Resp B/P (MAP) Pulse Ox O2 Delivery O2 Flow Rate FiO2 06/06/20 11:53 06/06/20 10:55 97 Nasal Cannula 4.00 06/06/20 08:00 36.6 90 18 06/05/20 17:08 92 General Appearance: No Apparent Distress, Chronically ill, Thin Respiratory: No Accessory Muscle Use, Other (on baseline oxygen) Cardiovascular: Regular Rate, Rhythm, No Murmur Neurologic/Psychiatric: Alert, Oriented x3 Hospital Course Pt was admitted due to sepsis from pneumonia. He was treated with IV antibiotics and nebulized breathing treatments due to baseline COPD. He did well and responded quickly. He was able to be discharged in improved and stable condition at his request in order to make it to an appointment for imaging of his leg prior to surgery. He was continued on oral antibiotics and is to follow up with Dr Genao to follow up this hospital stay. Labs (last 24 hrs) Microbiology 06/04/20 Blood Culture - Preliminary, Resulted Positive; See Report 06/04/20 Influenza Types A,B Antigen (VY) - Final, Complete 06/04/20 Urine Culture - Final, Complete Gram Pos Mixed Bacterial Krystal Patient resulted labs reviewed. Imaging: Reviewed Imaging Report Discussion & Recommendations Discharge Planning: >30 minutes discharge planning Discharge Home Medications: Active Scripts Active Cefdinir 300 Mg Capsule 300 Mg PO BID Xarelto (Rivaroxaban) 10 Mg Tablet 10 Mg PO 0300 30 Days Hold per your surgeon's instructions for surgery next week Reported Spiriva (Tiotropium [place]) 1 Inh Aerp 1 Inh IH 1500 Ropinirole HCl 1 Mg Tablet 1 Mg PO 0800 Atorvastatin Calcium 80 Mg Tablet 80 Mg PO 0300 Ventolin Hfa (Albuterol Sulfate) 18 Gm Hfa.aer.ad 2 Puff INH Q4H PRN Meloxicam 7.5 Mg Tablet 7.5 Mg PO 1500 LAST FILLED 11-01-2019 #30 Amlodipine Besylate 5 Mg Tablet 5 Mg PO 0800 LAST FILLED 12-24-2019 #90 Lamotrigine 100 Mg Tablet 100 Mg PO 1500,2300 1500: 100MG +25MG TO EQUAL 125MG 2300: 100MG Neurontin (Gabapentin) 300 Mg Capsule 300 Mg PO 2300 Acetaminophen 500 Mg Tablet 1,000 Mg PO Q6H PRN Carbamazepine 200 Mg Tablet 400 Mg PO 1500 TAKES 2 (200 MG) TABLETS Lamotrigine 25 Mg Tablet 25 Mg PO 0300, 1500 0300: 25MG 1500: 100MG +25MG TO EQUAL 125MG Tegretol (Carbamazepine) 200 Mg Tablet 200 Mg PO 0300,0800,2300 Phenytoin Sodium Extended 100 Mg Capsule 100 Mg PO 0800,2300 Phenytoin Sodium Extended 100 Mg Capsule 200 Mg PO 1500 TAKES 2 (100 MG) CAPSULES Gabapentin 600 Mg Tablet 600 Mg PO 0800,1500 Instructions to patient/family Please see electronic discharge instructions given to patient. Copy Copies To 1: AMANDEEP GENAO DO Problem Qualifiers (1) Sepsis: Sepsis type: sepsis due to unspecified organism Sepsis acute organ dysfunction status: without acute organ dysfunction Qualified Codes: A41.9 - Sepsis, unspecified organism (2) Pneumonia, community acquired: Laterality: left Lung location: lower lobe of lung Qualified Codes: J18.9 - Pneumonia, unspecified organism (3) HLD (hyperlipidemia): Hyperlipidemia type: mixed hyperlipidemia Qualified Codes: E78.2 - Mixed hyperlipidemia (4) HTN (hypertension): Hypertension type: essential hypertension Qualified Codes: I10 - Essential (primary) hypertension (5) COPD (chronic obstructive pulmonary disease): COPD type: COPD with acute lower respiratory infection Qualified Codes: J44.0 - Chronic obstructive pulmonary disease with (acute) lower respiratory infection (6) Closed left fibular fracture: Encounter type: YUKI Villatoro MD Jun 06, 2020 10:10
[2020-06-06] MEDS ORDERED: CEFD300C3 PO (10:12)
[2020-06-06] MEDS ORDERED: RIVA10TA PO (10:12)
--- NOTE | 2020-06-06 10:31 | Discharge Inst-Simple/Standard ---
Discharge Inst-Standard Discharge Medications New, Converted or Re-Newed RX: Transmitted to Pharmacy Patient Instructions/Follow Up Plan of Care/Instructions/FU: Please continue to take your medications as written. Please follow up with your primary care doctor to follow up this hospital stay. Please keep your appointment tomorrow for your CT of your leg. Activity as Tolerated: Yes Discharge Diet: No Restrictions Return to The Hospital For: Chest pain, shortness of breath, fever, increasing oxygen requirement, if you feel you are getting worse. YUKI OWUSU MD Jun 06, 2020 10:31
== END 2020-06-06 12:45 | disposition home or self-care (01) | DRG 871 ==
LOC: EDUNIT# 10:46 → ER 10:47 → 4TH 11:37
PROVIDERS: ADMIT Internal Medicine; ATTEND Internal Medicine
DX: A41.9 Sepsis, unspecified organism (principal); J18.9 Pneumonia, unspecified organism; N39.0 Urinary tract infection, site not specified; J96.11 Chronic respiratory failure with hypoxia; E87.1 Hypo-osmolality and hyponatremia; C34.90 Malignant neoplasm of unspecified part of unspecified bronchus or lung; C79.51 Secondary malignant neoplasm of bone; J43.9 Emphysema, unspecified; Z20.822 Contact with and (suspected) exposure to COVID-19; G47.30 Sleep apnea, unspecified; G40.909 Epilepsy, unspecified, not intractable, without status epilepticus; E78.00 Pure hypercholesterolemia, unspecified; E78.5 Hyperlipidemia, unspecified; I10 Essential (primary) hypertension; G62.9 Polyneuropathy, unspecified; K21.9 Gastro-esophageal reflux disease without esophagitis; M19.91 Primary osteoarthritis, unspecified site; G89.29 Other chronic pain; D64.9 Anemia, unspecified; R01.1 Cardiac murmur, unspecified; Z87.891 Personal history of nicotine dependence; Z88.6 Allergy status to analgesic agent; Z82.49 Family history of ischemic heart disease and other diseases of the circulatory system
CPT/HCPCS: 36415; 51702; 71045; 80053; 81000; 82805; 83605; 85007; 85025; 85027; 85610; 85730; 87040; 87088; 87635; 87804; 94640; 94760; 99291

== ENCOUNTER → 2020-06-12 | Outpatient (CLI) | payer MEDICARE, MEDICAID ==
[~2020-06-12] MED LIST changes: +ATOR80TA76 PO; +RIVA10TA PO; +ROPI1TAB PO
== END ==
LOC: LABNPT 06:25
PROVIDERS: ATTEND Orthopaedic Surgery Orthopaedic Trauma
DX: Z01.812 Encounter for preprocedural laboratory examination (principal); Z20.822 Contact with and (suspected) exposure to COVID-19
CPT/HCPCS: 87635

== ENCOUNTER 2020-07-11 02:23 | Inpatient (IN) | payer MEDICARE, MEDICAID ==
[~2020-07-11] VITALS: Ht 182.9 cm; Wt 83.3 kg
[~2020-07-11 02:23] MED LIST changes: +ACETAMINOPHEN 500 MG TAB (TYLENOL) ONE; +CEFEPIME 1 GM/10 ML (MAXIPIME) VIAL ONE; +LACTATED RINGERS 1,000 ML IV ONE; +WATER (STERILE) FOR INJECTION 10 ML ONE
[2020-07-11] MEDS ORDERED: CEFEPIME INJECTION 1,000 MG in WATER (STERILE) FOR INJECTION 10 ML IV ONE (02:45)
[2020-07-11] MEDS ORDERED: RT-ALBUTEROL/IPRATROPIUM 3 ML (DUONEB) VIAL INH ONE (02:45)
[2020-07-11] MEDS ORDERED: LACTATED RINGERS 1,000 ML IV ONE ×2 (02:45→04:00)
[2020-07-11] MEDS ORDERED: ACETAMINOPHEN 500 MG TAB (TYLENOL) PO PRN (02:45)
[2020-07-11 02:49] LABS: BASOPHILS % (AUTO) 0 % (0-10); EOSINOPHILS % (AUTO) 0 % (0-10); HEMATOCRIT 33 % (40-54); HEMOGLOBIN 9.8 g/dL (13.3-17.7); LYMPHOCYTES % (AUTO) 8 % (12-44); MEAN CORPUSCULAR HEMOGLOBIN 24 pg (25-34); MEAN CORPUSCULAR HGB CONC 30 g/dL (32-36); MEAN CORPUSCULAR VOLUME 81 fL (80-99); MEAN PLATELET VOLUME 8.9 fL (9.0-12.2); MONOCYTES # (AUTO) 1.1 10^3/uL (0.0-1.0); MONOCYTES % (AUTO) 8 % (0-12); NEUTROPHILS # (AUTO) 11.1 10^3/uL (1.8-7.8); NEUTROPHILS % (AUTO) 84 % (42-75); PLATELET COUNT 344 10^3/uL (130-400); WHITE BLOOD COUNT 13.3 10^3/uL (4.3-11.0)
--- NOTE | 2020-07-11 02:49 | ED General ---
General Stated Complaint: SOA/FEVER Source of Information: Patient Exam Limitations: No Limitations History of Present Illness Date Seen by Provider: Jul 11, 2020 Time Seen by Provider: 02:20 Initial Comments Patient presents ER by EMS from home with chief complaint of worsening shortness of air. DuoNeb given on route which helped some. Patient had a fever of 100.2 at home. No antipyretics. He has a strong history of COPD and depends on 4 L oxygen by nasal cannula at baseline. O2 saturations in the upper 90s on his baseline oxygen. No nausea vomiting. He does not get out of the house or have any known sick contacts. He did not get any vaccinations for COVID-19. On Xarelto. Allergies and Home Medications Allergies Coded Allergies: aspirin (Unverified Allergy, Mild, DOES NOT WORK WELL W/ OTHER MEDS, 09/20/19) ibuprofen (Unverified Allergy, Mild, 09/20/19) hydrocodone (Verified Adverse Reaction, Intermediate, BECOMES TOO SEDATED, 09/22/19) Home Medications Acetaminophen 500 Mg Tablet, 1,000 MG PO Q6H PRN for PAIN-MILD (1-4), (Reported) Albuterol Sulfate 18 Gm Hfa.aer.ad, 2 PUFF INH Q4H PRN for SHORTNESS OF BREATH, (Reported) Amlodipine Besylate 5 Mg Tablet, 5 MG PO 0800, (Reported) LAST FILLED 12-24-2019 #90 Atorvastatin Calcium 80 Mg Tablet, 80 MG PO 0300, (Reported) Carbamazepine 200 Mg Tablet, 200 MG PO 0300,0800,2300, (Reported) Carbamazepine 200 Mg Tablet, 400 MG PO 1500, (Reported) TAKES 2 (200 MG) TABLETS Cefdinir 300 Mg Capsule, 300 MG PO BID Prescribed by: YUKI OWUSU on 06/06/20 1012 Gabapentin 600 Mg Tablet, 600 MG PO 0800,1500, (Reported) Gabapentin 300 Mg Capsule, 300 MG PO 2300, (Reported) Lamotrigine 25 Mg Tablet, 25 MG PO 0300, 1500, (Reported) 0300: 25MG 1500: 100MG +25MG TO EQUAL 125MG Lamotrigine 100 Mg Tablet, 100 MG PO 1500,2300, (Reported) 1500: 100MG +25MG TO EQUAL 125MG 2300: 100MG Meloxicam 7.5 Mg Tablet, 7.5 MG PO 1500, (Reported) LAST FILLED 11-01-2019 #30 Phenytoin Sodium Extended 100 Mg Capsule, 200 MG PO 1500, (Reported) TAKES 2 (100 MG) CAPSULES Phenytoin Sodium Extended 100 Mg Capsule, 100 MG PO 0800,2300, (Reported) Rivaroxaban 10 Mg Tablet, 10 MG PO 0300 Hold per your surgeon's instructions for surgery next week Prescribed by: YUKI OWUSU on 06/06/20 1012 Ropinirole HCl 1 Mg Tablet, 1 MG PO 0800, (Reported) Tiotropium [place] 1 Inh Aerp, 1 INH IH 1500, (Reported) Patient Home Medication List Home Medication List Reviewed: Yes Review of Systems Review of Systems Constitutional: chills, fever EENTM: No ear discharge, No ear pain Respiratory: cough, short of breath Cardiovascular: No edema, No palpitations Gastrointestinal: No abdominal pain, No nausea, No vomiting Genitourinary: No discharge, No dysuria Musculoskeletal: No back pain, No joint pain All Other Systems Reviewed Negative Unless Noted: Yes Past Ovvdcua-Hvrztt-Oefggn Hx Patient Social History Alcohol Use: Denies Use Drug of Choice: HX OF RX DRUG ABUSE, CLAIMS NONE FOR 15 YEARS Smoking Status: Former Smoker Type Used: Cigars, Cigarettes Former Smoker, Quit: Jan 29, 2017 2nd Hand Smoke Exposure: Yes Recent Hopitalizations: No Immunizations Up To Date Tetanus Booster (TDap): Less than 5yrs PED Vaccines UTD: Yes Date of Influenza Vaccine: Apr 21, 2018 Seasonal Allergies Seasonal Allergies: Yes Past Medical History Surgeries: Yes (C-SPINE SURGERY FOR FX; LEFT LOWER LEG SURGERY 10/2019) Eye Surgery, Gallbladder, Orthopedic Respiratory: Yes (O2 AT 4L/NC CONTINUOUSLY;LUNG CANCER;MULT EPISODES OF PNEUMONIA) Asthma, Pneumonia, Chronic Bronchitis, Sleep Apnea, COPD Currently Using CPAP: No Currently Using BIPAP: No Cardiac: Yes Heart Murmur, High Cholesterol, Hypertension, Valvular Heart Disease 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) Neuropathy, Paralysis, Seizure Disorder, Vertigo Reproductive Disorders: No Sexually Transmitted Disease: No HIV/AIDS: No Genitourinary: No Gastrointestinal: Yes (CHRONIC N/V) Gastroesophageal Reflux Musculoskeletal: Yes (HX C-SPINE FX/NON-UNION OF ODONTOID; FALLS;POST POLIO-L SIDE WEAKNESS/CONTR) Arthritis, Fractures, Contracture Endocrine: No HEENT: Yes (DENTURES) Loss of Vision: Denies Hearing Impairment: Denies Cancer: Yes Bone, Lung Did You Recieve Any Treatments: Yes What Type of Treatment Did You: Chemotherapy Psychosocial: No Integumentary: Yes (DECUBITUS ULCERS ON SACRUM/BUTTOCKS AREA) Blood Disorders: No Adverse Reaction/Blood Tranf: No Family Medical History Diabetes mellitus 19 MOTHER Hypercholesterolemia 19 FATHER Hypertension 19 FATHER Heart Disease Physical Exam-Suspected Sepsis Physical Exam Vital Signs Vital Signs - First Documented 07/11/20 02:23 Temp 38.9 Pulse 108 Resp 24 B/P (MAP) 136/93 (107) Pulse Ox 99 O2 Delivery Nasal Cannula O2 Flow Rate 4.00 Capillary Refill : Height, Weight, BMI Height: 6'0" Weight: 174lbs. 3.0oz. 79.325720oz; 21.83 BMI Method:Stated General Appearance: WD/WN, Moderate Distress Eyes: Bilateral Eye Normal Inspection, Bilateral Eye PERRL, Bilateral Eye EOMI HEENT: PERRL/EOMI, TMs Normal, Normal ENT Inspection, Pharynx Normal; No Moist Mucous Membranes Neck: Full Range of Motion, Normal Inspection, Non Tender, Supple Respiratory: Accessory Muscle Use, Crackles, Decreased Breath Sounds, Respiratory Distress (Moderate to severe. Oxygen sats are okay at 98% on 4 L by nasal cannula. He has a hard time finishing a sentence due to breathlessness.), Wheezing Cardiovascular: Regular Rate, Rhythm, Normal Peripheral Pulses Gastrointestinal: Normal Bowel Sounds, Non Tender, Soft Extremity: Normal Capillary Refill, Normal Inspection Neurologic/Psychiatric: Alert, Oriented x3, No Motor/Sensory Deficits, Normal Mood/Affect Skin: normal color, warm/dry Focused Exam Lactate Level 07/11/20 02:09: Lactic Acid Level 1.40 Lactic Acid Level Laboratory Tests Test 07/11/20 02:09 Lactic Acid Level 1.40 MMOL/L (0.50-2.00) Procedures/Interventions Date of ETT Placement: Mar 09, 2017 Time of ETT Placement: 1811 Suture Size: 5-0 Progress/Results/Core Measures Suspected Sepsis SIRS Temperature: Pulse: Respiratory Rate: Laboratory Tests 07/11/20 02:09: White Blood Count 13.3H Blood Pressure / Mean: 07/11/20 02:09: Lactic Acid Level 1.40 Laboratory Tests 07/11/20 02:09: Creatinine 0.73, INR Comment 0.9, Platelet Count 344, Total Bilirubin 0.3 Results/Orders Lab Results Laboratory Tests Test 07/11/20 02:09 07/11/20 02:40 07/11/20 03:08 Range/Units White Blood Count 13.3 H 4.3-11.0 10^3/uL Red Blood Count 4.04 L 4.30-5.52 10^6/uL Hemoglobin 9.8 L 13.3-17.7 g/dL Hematocrit 33 L 40-54 % Mean Corpuscular Volume 81 80-99 fL Mean Corpuscular Hemoglobin 24 L 25-34 pg Mean Corpuscular Hemoglobin Concent 30 L 32-36 g/dL Red Cell Distribution Width 17.6 H 10.0-14.5 % Platelet Count 344 130-400 10^3/uL Mean Platelet Volume 8.9 L 9.0-12.2 fL Immature Granulocyte % (Auto) 1 % Neutrophils (%) (Auto) 84 H 42-75 % Lymphocytes (%) (Auto) 8 L 12-44 % Monocytes (%) (Auto) 8 0-12 % Eosinophils (%) (Auto) 0 0-10 % Basophils (%) (Auto) 0 0-10 % Neutrophils # (Auto) 11.1 H 1.8-7.8 10^3/uL Lymphocytes # (Auto) 1.0 1.0-4.0 10^3/uL Monocytes # (Auto) 1.1 H 0.0-1.0 10^3/uL Eosinophils # (Auto) 0.0 0.0-0.3 10^3/uL Basophils # (Auto) 0.0 0.0-0.1 10^3/uL Immature Granulocyte # (Auto) 0.1 0.0-0.1 10^3/uL Prothrombin Time 12.6 12.2-14.7 SEC INR Comment 0.9 0.8-1.4 Activated Partial Thromboplast Time 39 H 24-35 SEC Sodium Level 132 L 135-145 MMOL/L Potassium Level 4.4 3.6-5.0 MMOL/L Chloride Level 91 L 98-107 MMOL/L Carbon Dioxide Level 29 21-32 MMOL/L Anion Gap 12 5-14 MMOL/L Blood Urea Nitrogen 7 7-18 MG/DL Creatinine 0.73 0.60-1.30 MG/DL Estimat Glomerular Filtration Rate > 60 BUN/Creatinine Ratio 10 Glucose Level 121 H 70-105 MG/DL Lactic Acid Level 1.40 0.50-2.00 MMOL/L Calcium Level 8.6 8.5-10.1 MG/DL Corrected Calcium 8.8 8.5-10.1 MG/DL Total Bilirubin 0.3 0.1-1.0 MG/DL Aspartate Amino Transf (AST/SGOT) 12 5-34 U/L Alanine Aminotransferase (ALT/SGPT) 9 0-55 U/L Alkaline Phosphatase 242 H 40-136 U/L Total Protein 7.3 6.4-8.2 GM/DL Albumin 3.8 3.2-4.5 GM/DL Urine Color YELLOW Urine Clarity CLEAR Urine pH 7.5 5-9 Urine Specific [place] 1.020 1.016-1.022 Urine Protein NEGATIVE NEGATIVE Urine Glucose (UA) NEGATIVE NEGATIVE Urine Ketones NEGATIVE NEGATIVE Urine Nitrite NEGATIVE NEGATIVE Urine Bilirubin NEGATIVE NEGATIVE Urine Urobilinogen 1.0 < = 1.0 MG/DL Urine Leukocyte Esterase NEGATIVE NEGATIVE Urine RBC (Auto) NEGATIVE NEGATIVE Urine RBC NONE /HPF Urine WBC 2-5 /HPF Urine Squamous Epithelial Cells 0-2 /HPF Urine Crystals NONE /LPF Urine Bacteria FEW H /HPF Urine Casts NONE /LPF Urine Mucus NEGATIVE /LPF Urine Culture Indicated CULTURE PENDING Coronavirus 2018 (MARGI) Not Detected Not Detecte Blood Gas Puncture Site RT RAD Blood Gas Patient Temperature 103 Arterial Blood pH 7.38 7.37-7.43 Arterial Blood Partial Pressure CO2 58 H 35-45 MMHG Arterial Blood Partial Pressure O2 95 H 79-93 MMHG Arterial Blood HCO3 33 H 23-27 MMOL/L Arterial Blood Total CO2 34.1 H 21.0-31.0 MMOL/L Arterial Blood Oxygen Saturation 95 94-100 % Arterial Blood Base Excess 7.8 H -2.5-2.5 MMOL/L Johan Test YES-POS Blood Gas Ventilator Setting NO Blood Gas Inspired Oxygen 4L Micro Results Microbiology 07/11/20 Influenza Types A,B Antigen (VY) - Final, Complete My Orders Orders - KALEN LUZ Cefepime Injection (Maxipime Injection) (07/11/20 02:21) Water (Sterile) For Injection (Sterile W (07/11/20 02:21) Lactated Ringers (Lr 1000 Ml Iv Solution (07/11/20 02:21) Acetaminophen Tablet (Tylenol Tablet) (07/11/20 02:22) Cbc With Automated Diff (07/11/20 02:38) Comprehensive Metabolic Panel (07/11/20 02:38) Blood Culture (07/11/20 02:38) Sputum Culture (07/11/20 02:38) Urinalysis (07/11/20 02:38) Urine Culture (07/11/20 02:38) Protime With Inr (07/11/20 02:38) Partial Thromboplastin Time (07/11/20 02:38) Chest 1 View, Ap/Pa Only (07/11/20 02:38) Acetaminophen Tablet (Tylenol Tablet) (07/11/20 02:45) Ed Iv/Invasive Line Start (07/11/20 02:38) Ed Iv/Invasive Line Start (07/11/20 02:38) Vital Signs Adult Sepsis Patie Q15M (07/11/20 02:38) O2 (07/11/20 02:38) Remove Rings In Anticipation O (07/11/20 02:38) Lactic Acid Analyzer (07/11/20 02:38) Influenza A And B Antigens (07/11/20 02:38) Lactated Ringers (Lr 1000 Ml Iv Solution (07/11/20 02:45) Cefepime Injection (Maxipime Injection) (07/11/20 02:45) Vancomycin Injection (Vancomycin Injecti (07/11/20 02:45) Albuterol/Ipra Inhalation Soln (Duoneb I (07/11/20 02:45) Dexamethasone Injection (Decadron Inje (07/11/20 02:45) Svn Small Volume Nebulizer (07/11/20 02:38) Covid 19 Inhouse Test (07/11/20 02:38) Arterial Blood Gas (07/11/20 03:10) Lorazepam Injection (Ativan Injection) (07/11/20 03:16) Lorazepam Injection (Ativan Injection) (07/11/20 03:30) Medications Given in ED Current Medications Medications Dose Ordered Sig/Porfirio Route Start Time Stop Time Status Last Admin Dose Admin Acetaminophen 1,000 mg ONCE PRN PO 07/11/20 02:45 07/11/20 02:53 DC 07/11/20 02:50 1,000 MG Albuterol/ Ipratropium 3 ml ONCE ONCE INH 07/11/20 02:45 07/11/20 02:46 DC 07/11/20 02:45 3 ML Cefepime HCl 1000 mg/Sterile Water 10 ml @ 200 mls/hr ONCE ONCE IV 07/11/20 02:45 07/11/20 02:47 DC 07/11/20 02:50 200 MLS/HR Dexamethasone Sodium Phosphate 10 mg ONCE ONCE IV 07/11/20 02:45 07/11/20 02:46 DC 07/11/20 03:10 10 MG Lactated Ringer's 1,000 ml @ 0 mls/hr Q0M ONCE IV 07/11/20 02:45 07/11/20 02:46 DC 07/11/20 02:57 1,000 MLS/HR Lorazepam 0.5 mg ONCE ONCE IVP 07/11/20 03:30 07/11/20 03:31 DC 07/11/20 03:31 0.5 MG Vital Signs/I&O 07/11/20 07/11/20 07/11/20 02:23 02:23 03:27 Temp 38.9 Pulse 108 101 Resp 24 22 B/P (MAP) 136/93 (107) Pulse Ox 99 100 97 O2 Delivery Nasal Cannula Nasal Cannula O2 Flow Rate 4.00 4.00 25.00 Capillary Refill : Progress Note : Time: 02:48 Progress Note Plan to get an ABG. We will put him on BiPAP given another breathing treatment and test him for Covid and influenza. Start a septic work-up although because we are testing for Covid until we get a negative result we are only going to give 1 L of lactated Ringer's for now. Cefepime and vancomycin weight-based dosing. Diagnostic Imaging Diagonstic Imaging: Xray Plain Films/CT/US/NM/MRI: chest Comments Stable chest x-ray Reviewed: Reviewed by Me Departure Communication (Admissions) Time/Spoke to Admitting Phy: 03:45 Discussed the case with Dr. Swenson and she agrees to admit the patient to the ICU on BiPAP. Broad-spectrum antibiotics Impression Primary Impression: Sepsis Qualified Codes: A41.9 - Sepsis, unspecified organism; R65.20 - Severe sepsis without septic shock; J96.02 - Acute respiratory failure with hypercapnia Additional Impressions: Pneumonia, community acquired Qualified Codes: J18.9 - Pneumonia, unspecified organism Acute on chronic respiratory failure with hypoxia and hypercapnia COPD exacerbation Disposition: ADMITTED INPATIENT Condition: Critical Admissions Decision to Admit Reason: Admit from ER (General) Decision to Admit/Date: Jul 11, 2020 Time/Decision to Admit Time: 02:30 Departure-Patient Inst. Referrals: AMANDEEP GENAO DO (PCP/Family) Primary Care Physician KALEN LUZ Jul 11, 2020 02:48
[2020-07-11 02:53] LABS: ALBUMIN 3.8 GM/DL (3.2-4.5); CHLORIDE 91 MMOL/L (98-107); POTASSIUM 4.4 MMOL/L (3.6-5.0); SODIUM 132 MMOL/L (135-145)
[2020-07-11 02:54] LABS: CALCIUM 8.6 MG/DL (8.5-10.1); INR 0.9 (0.8-1.4); PROTHROMBIN TIME PATIENT 12.6 SEC (12.2-14.7)
[2020-07-11 02:55] LABS: BILIRUBIN,URINE NEGATIVE (NEGATIVE); CLARITY,URINE CLEAR; COLOR,URINE YELLOW; GLUCOSE, URINE (UA) NEGATIVE (NEGATIVE); KETONES,URINE NEGATIVE (NEGATIVE); LEUKOCYTE ESTERASE ,URINE NEGATIVE (NEGATIVE); NITRITE,URINE NEGATIVE (NEGATIVE); PH,URINE 7.5 (5-9); PROTEIN,URINE NEGATIVE (NEGATIVE)
[2020-07-11 02:55] LABS: GLUCOSE 121 MG/DL (70-105); TOTAL PROTEIN 7.3 GM/DL (6.4-8.2)
[2020-07-11 02:57] LABS: BILIRUBIN,TOTAL 0.3 MG/DL (0.1-1.0); CARBON DIOXIDE 29 MMOL/L (21-32)
[2020-07-11 02:59] LABS: ALKALINE PHOSPHATASE 242 U/L (40-136); CREATININE SERUM 0.73 MG/DL (0.60-1.30); GFR ESTIMATED > 60
[2020-07-11 03:00] LABS: BUN/CREATININE RATIO 10
[2020-07-11 03:02] LABS: ALANINE AMINOTRANSFERASE 9 U/L (0-55)
[2020-07-11] MEDS: VANCOMYCIN INJECTION 750 MG in NS (IVPB) 250 ML IV SCH ×2 (03:10→04:12)
[2020-07-11 03:11] LABS: BACTERIA,URINE FEW /HPF; SQUAMOUS EPITHELIAL CELL,UR 0-2 /HPF
[2020-07-11] MEDS ORDERED: LORazepam INJ 2 MG/ML (ATIVAN) VIAL ONE (03:16)
[2020-07-11 03:18] LABS: ABG BASE EXCESS 7.8 MMOL/L (-2.5-2.5); ABG OXYGEN SATURATION 95 % (94-100); ABG PCO2 58 MMHG (35-45); ABG PH 7.38 (7.37-7.43); ABG PO2 95 MMHG (79-93); ABG TCO2 34.1 MMOL/L (21.0-31.0)
[2020-07-11 03:19] LABS: ALLENS TEST YES-POS; INSPIRED O2 4L; PATIENT TEMP 103; VENTILATOR NO
[2020-07-11 03:27] VITALS: BP 118/64
[2020-07-11] MEDS ORDERED: LORazepam INJ 2 MG/ML (ATIVAN) VIAL IVP ONE (03:30)
[2020-07-11] MEDS ORDERED: NS IV 500 ML 500 ML IV ONE (04:00)
[2020-07-11 04:42] VITALS: BP 128/76
[2020-07-11] MEDS ORDERED: ACETAMINOPHEN 650 MG SUPP (TYLENOL) PR PRN (05:15)
[2020-07-11] MEDS ORDERED: LORazepam 0.5 MG (ATIVAN) TABLET PO PRN (05:15)
[2020-07-11] MEDS ORDERED: LORazepam INJ 2 MG/ML (ATIVAN) VIAL IVP PRN (05:15)
--- NOTE | 2020-07-11 05:45 | Pulmonary Consultation ---
History of Present Illness History of Present Illness Date Seen by Provider: Jul 11, 2020 Time Seen by Provider: 05:40 Date of Admission Allergies and Home Medications Allergies Coded Allergies: aspirin (Unverified Allergy, Mild, DOES NOT WORK WELL W/ OTHER MEDS, 09/20/19) ibuprofen (Unverified Allergy, Mild, 09/20/19) hydrocodone (Verified Adverse Reaction, Intermediate, BECOMES TOO SEDATED, 09/22/19) Home Medications Acetaminophen 500 Mg Tablet, 1,000 MG PO Q6H PRN for PAIN-MILD (1-4), (Reported) Albuterol Sulfate 18 Gm Hfa.aer.ad, 2 PUFF INH Q4H PRN for SHORTNESS OF BREATH, (Reported) Amlodipine Besylate 5 Mg Tablet, 5 MG PO 0800, (Reported) LAST FILLED 12-24-2019 #90 Atorvastatin Calcium 80 Mg Tablet, 80 MG PO 0300, (Reported) Carbamazepine 200 Mg Tablet, 200 MG PO 0300,0800,2300, (Reported) Carbamazepine 200 Mg Tablet, 400 MG PO 1500, (Reported) TAKES 2 (200 MG) TABLETS Cefdinir 300 Mg Capsule, 300 MG PO BID Prescribed by: YUKI OWUSU on 06/06/20 1012 Gabapentin 600 Mg Tablet, 600 MG PO 0800,1500, (Reported) Gabapentin 300 Mg Capsule, 300 MG PO 2300, (Reported) Lamotrigine 25 Mg Tablet, 25 MG PO 0300, 1500, (Reported) 0300: 25MG 1500: 100MG +25MG TO EQUAL 125MG Lamotrigine 100 Mg Tablet, 100 MG PO 1500,2300, (Reported) 1500: 100MG +25MG TO EQUAL 125MG 2300: 100MG Meloxicam 7.5 Mg Tablet, 7.5 MG PO 1500, (Reported) LAST FILLED 11-01-2019 #30 Phenytoin Sodium Extended 100 Mg Capsule, 200 MG PO 1500, (Reported) TAKES 2 (100 MG) CAPSULES Phenytoin Sodium Extended 100 Mg Capsule, 100 MG PO 0800,2300, (Reported) Rivaroxaban 10 Mg Tablet, 10 MG PO 0300 Hold per your surgeon's instructions for surgery next week Prescribed by: YUKI OWUSU on 06/06/20 1012 Ropinirole HCl 1 Mg Tablet, 1 MG PO 0800, (Reported) Tiotropium [place] 1 Inh Aerp, 1 INH IH 1500, (Reported) Past Sjdgung-Cbmsnf-Qseceq Hx Patient Social History Alcohol Use: Denies Use Drug of Choice: HX OF RX DRUG ABUSE, CLAIMS NONE FOR 15 YEARS Smoking Status: Former Smoker Type Used: Cigars, Cigarettes Former Smoker, Quit: Jan 29, 2017 2nd Hand Smoke Exposure: Yes Recent Infectious Disease Expo: No Recent Hopitalizations: No Have you traveled recently?: No Alcohol Use?: No Immunizations Up To Date Tetanus Booster (TDap): Less than 5yrs PED Vaccines UTD: Yes Date of Influenza Vaccine: Apr 21, 2018 Seasonal Allergies Seasonal Allergies: Yes Past Medical History Surgeries: Yes (C-SPINE SURGERY FOR FX; LEFT LOWER LEG SURGERY 10/2019) Eye Surgery, Gallbladder, Orthopedic Respiratory: Yes (O2 AT 4L/NC CONTINUOUSLY;LUNG CANCER;MULT EPISODES OF PNEUMONIA) Asthma, Pneumonia, Chronic Bronchitis, Sleep Apnea, COPD Currently Using CPAP: No Currently Using BIPAP: No Cardiac: Yes Heart Murmur, High Cholesterol, Hypertension, Valvular Heart Disease 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) Neuropathy, Paralysis, Seizure Disorder, Vertigo Reproductive Disorders: No Sexually Transmitted Disease: No HIV/AIDS: No Genitourinary: No Gastrointestinal: Yes (CHRONIC N/V) Gastroesophageal Reflux Musculoskeletal: Yes (HX C-SPINE FX/NON-UNION OF ODONTOID; FALLS;POST POLIO-L SIDE WEAKNESS/CONTR) Arthritis, Fractures, Contracture Endocrine: No HEENT: Yes (DENTURES) Loss of Vision: Denies Hearing Impairment: Denies Cancer: Yes Bone, Lung Did You Recieve Any Treatments: Yes What Type of Treatment Did You: Chemotherapy Psychosocial: No Integumentary: Yes (DECUBITUS ULCERS ON SACRUM/BUTTOCKS AREA) Blood Disorders: No Adverse Reaction/Blood Tranf: No Family Medical History Diabetes mellitus 19 MOTHER Hypercholesterolemia 19 FATHER Hypertension 19 FATHER Heart Disease Review of Systems Time Seen by Provider: 05:53 Sepsis Event Evaluation Height, Weight, BMI Height: 6'0" Weight: 174lbs. 3.0oz. 79.368610bj; 23.52 BMI Method:Stated Exam Exam Vital Signs Date Time Temp Pulse Resp B/P (MAP) Pulse Ox O2 Delivery O2 Flow Rate FiO2 07/11/20 05:30 98 106/73 (84) 97 Non Rebreather 15.00 07/11/20 05:15 97 107/73 (84) 99 Non Rebreather 15.00 07/11/20 05:07 99 07/11/20 05:07 93 30 127/72 (90) 99 Non Rebreather 15.00 07/11/20 04:42 99 22 128/76 99 NIV Bilevel 07/11/20 03:27 101 22 97 25.00 07/11/20 02:23 38.9 108 24 136/93 (107) 100 Nasal Cannula 4.00 07/11/20 02:23 99 Nasal Cannula 4.00 I & O 07/11/20 07:00 Intake Total 1260 ml Balance 1260 ml Height & Weight Height: 6'0" Weight: 174lbs. 3.0oz. 79.660803ep; 23.52 BMI Method:Stated General Appearance: WD/WN, Moderate Distress HEENT: PERRL/EOMI, TMs Normal, Normal ENT Inspection, Pharynx Normal; No Moist Mucous Membranes Neck: Full Range of Motion, Normal Inspection, Non Tender, Supple Respiratory: Accessory Muscle Use, Crackles, Decreased Breath Sounds, Respiratory Distress (Moderate to severe. Oxygen sats are okay at 98% on 4 L by nasal cannula. He has a hard time finishing a sentence due to breathlessness.), Wheezing Cardiovascular: Regular Rate, Rhythm, Normal Peripheral Pulses Capillary Refill: Less Than 3 Seconds Extremity: Normal Capillary Refill, Normal Inspection Neurologic/Psychiatric: Alert, Oriented x3, No Motor/Sensory Deficits, Normal Mood/Affect Results Lab Laboratory Tests 07/11/20 02:09 Assessment/Plan Assessment/Plan Acute on chronic respiratory failure -BiPAP PRN -oxgen -- Decrease for Sp02 90-92% -SVNs Sepsis -Check PCT -Page cultures - Vanco and cefepime COPDAE -Change Decadron to Prendnisone -SVNS -Monitor Anemia -Monitor RANI PACHECO DO Jul 11, 2020 05:45
[2020-07-11] MEDS ORDERED: morphine INJ 4 MG/ML 1 ML (VIAL/SYRINGE) IVP PRN (06:00)
[2020-07-11] MEDS ORDERED: risperiDONE 1 MG (RisperDAL) TAB PO PRN (06:00)
[2020-07-11] MEDS: LACTATED RINGERS 1,000 ML IV SCH ×4 (06:04→21:27)
[2020-07-11] MEDS: RT-ALBUTEROL/IPRATROPIUM 3 ML (DUONEB) VIAL INH SCH ×5 (07:56→22:11)
[2020-07-11] MEDS: predniSONE 20 MG TAB PO SCH (10:39)
[2020-07-11] MEDS: CEFEPIME 1,000 MG/SWFI 10 ML IV PUSH IV SCH ×6 (10:39→20:38)
[2020-07-11] MEDS ORDERED: RIVA10TA PO ×2 (11:03)
[2020-07-11] MEDS: VANCOMYCIN 1250 MG/NS 250 ML IVPB IV SCH ×4 (11:42→18:36)
--- NOTE | 2020-07-11 13:02 | History & Physical-Hospitalist ---
History of Present Illness HPI/Chief Complaint Joel Adamson is a 64-year-old male with past medical history of end-stage COPD with chronic oxygen dependence, metastatic lung cancer to the bone, who presented with fever and shortness of breath. He reports that he is feeling better this morning. He is not feeling short of breath. He has not had any more fevers. He is not having any increased cough. He denies any chest pain. He denies any abdominal pain. He denies any nausea or vomiting. He denies any diarrhea. He denies any dysuria. Source: patient Exam Limitations: no limitations Date Seen 07/11/20 Time Seen by a Provider: 08:55 Attending Physician Hollie Swenson DO PCP Micky Feng DO Referring Physician Date of Admission Jul 11, 2020 at 03:55 Home Medications & Allergies Home Medications Reviewed patient Home Medication Reconciliation performed by pharmacy medication reconciliations survey technician and/or nursing. Patients Allergies have been reviewed. Allergies Allergies Coded Allergies aspirin (Unverified Allergy, Mild, DOES NOT WORK WELL W/ OTHER MEDS, 09/20/19) ibuprofen (Unverified Allergy, Mild, 09/20/19) hydrocodone (Verified Adverse Reaction, Intermediate, BECOMES TOO SEDATED, 09/22/19) Patient Social History Tobacco Use?: No Smoking Status: Former Smoker Use of E-Cig and/or Vaping dev: No Substance use?: No Alcohol Use?: No Pt stated abuse/neglect: No Immunizations Up To Date Influenza Vaccine Up-to-Date: No; Not Current Tetanus Booster (TDap): Unknown Hepatitis A: No Hepatitis B: No TB Skin Test: None Current Status Do you have an Advance Directi: No Communicates: Verbally Primary Language: Dutch Preferred Spoken Language: Dutch Is interpretation needed?: No Implanted or Applied Medical D: Port-a-cath Past Medical History End stage COPD Chronic oxygen dependence Metastatic lung cancer to the bone Family Medical History Family Hx: Non-contributory Review of Systems Constitutional: fever, malaise EENTM: no symptoms reported Respiratory: cough, short of breath Cardiovascular: no symptoms reported Gastrointestinal: no symptoms reported Genitourinary: no symptoms reported Musculoskeletal: no symptoms reported Skin: no symptoms reported Psychiatric/Neurological: No Symptoms Reported Physical Exam Physical Exam Vital Signs Vital Signs - First Documented 07/11/20 02:23 Temp 38.9 Pulse 108 Resp 24 B/P (MAP) 136/93 (107) Pulse Ox 99 O2 Delivery Nasal Cannula O2 Flow Rate 4.00 Capillary Refill : Less Than 3 Seconds Height, Weight, BMI Height: 6'0" Weight: 174lbs. 3.0oz. 79.867271ds; 23.52 BMI Method:Stated General Appearance: No Apparent Distress, Chronically ill HEENT: PERRL/EOMI, Pharynx Normal Neck: Normal Inspection, Supple Respiratory: No Respiratory Distress, Decreased Breath Sounds Cardiovascular: Regular Rate, Rhythm, No Edema, No Murmur Gastrointestinal: Normal Bowel Sounds, Non Tender, Soft Extremity: Normal Inspection, Non Tender, No Pedal Edema Neurologic/Psychiatric: Alert, Depressed Affect, Motor Weakness Skin: Normal Color, Warm/Dry Results Results/Procedures Labs Laboratory Tests 07/11/20 02:09 Patient resulted labs reviewed. Imaging: Reviewed Imaging Report Assessment/Plan Admission Diagnosis Sepsis due to pneumonia Admission Status: Inpatient Order (span 2 midnights) Reason for Inpatient Admission: PNA requiring IV antibiotics Assessment and Plan Sepsis due to pneumonia Acute on chronic respiratory failure with hypoxia End stage COPD Metastatic lung cancer to the bone SIRS+ with elevated WBC and fever Chest xray concerning for pneumonia Procalcitonin normal COVID MARGI negative Flu negative Continue supplemental oxygen Vancomycin and Cefepime Pulmonology consulted, appreciate assistance DVT prophylaxis: already receiving therapeutic anticoagulation Diagnosis/Problems Diagnosis/Problems (1) Sepsis Status: Acute Qualifiers: Sepsis type: sepsis due to unspecified organism Sepsis acute organ dysfunction status: with acute organ dysfunction Severe sepsis acute organ dysfunction type: acute respiratory failure Acute respiratory failure type: with hypercapnia Severe sepsis shock status: without septic shock Qualified Codes: A41.9 - Sepsis, unspecified organism; R65.20 - Severe sepsis without septic shock; J96.02 - Acute respiratory failure with hypercapnia (2) Pneumonia, community acquired Status: Acute Qualifiers: Laterality: unspecified laterality Qualified Codes: J18.9 - Pneumonia, unspecified organism (3) Lung cancer metastatic to bone Status: Chronic (4) COPD (chronic obstructive pulmonary disease) Status: Chronic (5) Chronic respiratory failure with hypoxia Status: Acute SENG JOSEPH MD Jul 11, 2020 13:02
--- NOTE | 2020-07-11 13:10 | Diagnostic Imaging Report ---
EXAMINATION: Portable erect AP chest at 3:06 AM INDICATION: Shortness of breath The heart size is within normal limits and stable when compared to 06/05/2020. The coarse interstitial densities in the right lower lobe and the vague area of increased density in the right infrahilar region seen previously are again evident. The density in the right infrahilar region does seem somewhat greater than on the prior exam. Furthermore, a new vague area of increased density has developed in the left midlung. This does suggest pneumonia/atelectasis. The upper lungs are generally clear. The mediastinum is not widened. The osseous structures are intact. The right-sided Port-A-Cath seen previously is again evident. There is now a radiopaque line extending obliquely over the lower neck/upper thorax. This may represent an NG line. The tip of the line, however, overlies the superior mediastinum. If this is indeed an NG line, it should be advanced 25-30 cm to ensure it is well within the stomach. IMPRESSION: 1. The appearance of the chest has worsened since the prior exam as new areas of pneumonia/atelectasis have developed in both lung bases. A followup study would be recommended for continued evaluation. 2. The radiopaque line overlying the lower neck and upper thorax is of uncertain etiology. Considerations and recommendations as above. Report was called [facility] ICU-11, Olga Roche nurse , by jerry at 1:09am. Dictated on workstation # [id number]
[2020-07-11] MEDS ORDERED: rOPINIRole 1 MG (REQUIP) TABLET ONE (13:57)
[2020-07-11] MEDS: GABAPENTIN 600 MG (NEURONTIN) TAB PO SCH (14:01)
[2020-07-11] MEDS: lamoTRIgine 25 MG (LaMICtal) TAB PO SCH (14:02)
[2020-07-11] MEDS: rOPINIRole 1 MG (REQUIP) TABLET PO SCH (14:04)
[2020-07-11] MEDS: ACETAMINOPHEN 325 MG TABLET PO PRN ×2 (14:08→21:29)
[2020-07-11] MEDS ORDERED: TIOTROPIUM BROMIDE (SPIRIVA) 5'S INHALER IH SCH (15:00)
[2020-07-11] MEDS ORDERED: carBAMazepine 200 MG (TEGretol) TAB PO SCH (15:00)
[2020-07-11] MEDS ORDERED: UMECLIDINIUM BROMIDE (INCRUSE ELLIPTA) 7'S IH SCH (15:00)
[2020-07-11] MEDS ORDERED: PHENYTOIN 100 MG (DILANTIN) CAP PO SCH (15:00)
[2020-07-11] MEDS: PHENYTOIN 100 MG (DILANTIN) CAP PO SCH (22:55)
[2020-07-11] MEDS: carBAMazepine 200 MG (TEGretol) TAB PO SCH (22:55)
[2020-07-11] MEDS ORDERED: GABAPENTIN 300 MG (NEURONTIN) CAP PO SCH (23:00)
[2020-07-12] MEDS: RT-ALBUTEROL/IPRATROPIUM 3 ML (DUONEB) VIAL INH SCH ×3 (02:30→10:26)
[2020-07-12] MEDS: VANCOMYCIN 1250 MG/NS 250 ML IVPB IV SCH ×4 (02:33→11:16)
[2020-07-12] MEDS: CEFEPIME 1,000 MG/SWFI 10 ML IV PUSH IV SCH ×4 (02:33→09:16)
[2020-07-12] MEDS: lamoTRIgine 25 MG (LaMICtal) TAB PO SCH (02:36)
[2020-07-12] MEDS: carBAMazepine 200 MG (TEGretol) TAB PO SCH ×2 (02:36→09:16)
[2020-07-12] MEDS: ACETAMINOPHEN 325 MG TABLET PO PRN (02:37)
[2020-07-12 02:56] LABS: BASOPHILS % (AUTO) 0 % (0-10); EOSINOPHILS % (AUTO) 0 % (0-10); HEMATOCRIT 26 % (40-54); HEMOGLOBIN 7.8 g/dL (13.3-17.7); LYMPHOCYTES # (AUTO) 0.7 10^3/uL (1.0-4.0); LYMPHOCYTES % (AUTO) 8 % (12-44); MEAN CORPUSCULAR HEMOGLOBIN 25 pg (25-34); MEAN CORPUSCULAR HGB CONC 31 g/dL (32-36); MEAN CORPUSCULAR VOLUME 80 fL (80-99); MEAN PLATELET VOLUME 9.3 fL (9.0-12.2); MONOCYTES % (AUTO) 11 % (0-12); NEUTROPHILS # (AUTO) 7.7 10^3/uL (1.8-7.8); NEUTROPHILS % (AUTO) 80 % (42-75); PLATELET COUNT 267 10^3/uL (130-400); WHITE BLOOD COUNT 9.6 10^3/uL (4.3-11.0)
[2020-07-12] MEDS ORDERED: RIVAROXABAN 10 MG TABLET (XARELTO) PO SCH (03:00)
[2020-07-12 03:10] LABS: CHLORIDE 95 MMOL/L (98-107); POTASSIUM 4.1 MMOL/L (3.6-5.0); SODIUM 134 MMOL/L (135-145)
[2020-07-12 03:11] LABS: CALCIUM 8.5 MG/DL (8.5-10.1)
[2020-07-12 03:12] LABS: GLUCOSE 107 MG/DL (70-105)
[2020-07-12 03:13] LABS: CARBON DIOXIDE 30 MMOL/L (21-32)
[2020-07-12 03:15] LABS: PHOSPHORUS 3.1 MG/DL (2.3-4.7)
[2020-07-12 03:16] LABS: CREATININE SERUM 0.64 MG/DL (0.60-1.30); GFR ESTIMATED > 60
[2020-07-12 03:17] LABS: BUN/CREATININE RATIO 11
[2020-07-12 03:18] LABS: MAGNESIUM 1.7 MG/DL (1.6-2.4)
--- NOTE | 2020-07-12 03:31 | Pulmonary Progress Note ---
Subjective Date Seen by a Provider: Jul 12, 2020 Time Seen by a Provider: 03:05 Subjective/Events-last exam No complaints, states he is improved from yesterday. Sepsis Event Evaluation Height, Weight, BMI Height: 6'0" Weight: 174lbs. 3.0oz. 79.871554yw; 23.52 BMI Method:Stated Focused Exam Lactate Level 07/11/20 02:09: Lactic Acid Level 1.40 Exam Exam Vital Signs Date Time Temp Pulse Resp B/P (MAP) Pulse Ox O2 Delivery O2 Flow Rate FiO2 07/12/20 03:00 99 High Flow N/C 4.00 07/12/20 02:30 96 Nasal Cannula 4.00 07/12/20 00:00 88 19 115/73 (87) 98 High Flow N/C 4.00 07/11/20 23:00 53 26 121/93 (102) 95 High Flow N/C 4.00 07/11/20 23:00 97 High Flow N/C 4.00 07/11/20 22:58 37.0 High Flow N/C 4.00 07/11/20 22:11 96 Nasal Cannula 4.00 07/11/20 22:00 82 25 133/74 (91) 100 High Flow N/C 4.00 07/11/20 21:00 84 20 109/78 (92) 100 High Flow N/C 4.00 07/11/20 20:00 80 13 107/69 (75) 98 High Flow N/C 4.00 07/11/20 19:25 96 High Flow N/C 4.00 07/11/20 19:00 36.8 81 23 103/64 (77) 98 High Flow N/C 4.00 07/11/20 18:31 96 Nasal Cannula 4.00 07/11/20 18:00 82 81 117/71 (86) 96 High Flow N/C 1.00 07/11/20 17:00 85 17 109/74 (86) 97 High Flow N/C 1.00 07/11/20 16:14 94 Nasal Cannula 1.00 07/11/20 16:00 84 23 119/78 (92) 95 High Flow N/C 1.00 07/11/20 15:30 37.2 07/11/20 15:19 92 Nasal Cannula 2.00 07/11/20 15:00 93 16 102/67 (79) 93 High Flow N/C 1.00 07/11/20 14:00 103 20 113/79 (90) 93 High Flow N/C 1.00 07/11/20 13:05 103 07/11/20 13:00 93 13 130/79 (96) 92 High Flow N/C 1.00 07/11/20 12:00 92 24 106/71 (83) 94 High Flow N/C 1.00 07/11/20 11:16 94 Nasal Cannula 1.00 07/11/20 11:00 97 25 125/79 (94) 94 High Flow N/C 1.00 07/11/20 10:16 94 Nasal Cannula 1.00 07/11/20 10:00 92 21 135/85 (102) 92 High Flow N/C 1.00 07/11/20 09:00 91 23 111/74 (86) 94 High Flow N/C 1.00 07/11/20 09:00 37.2 07/11/20 08:00 92 16 120/81 (94) High Flow N/C 1.00 07/11/20 08:00 94 Nasal Cannula 1.00 07/11/20 07:00 91 21 103/69 (80) 92 High Flow N/C 15.00 07/11/20 06:45 96 23 127/75 (91) 91 High Flow N/C 15.00 07/11/20 06:40 102 07/11/20 06:30 105 22 121/88 (110) High Flow N/C 15.00 07/11/20 06:15 99 28 125/76 (97) 91 High Flow N/C 15.00 07/11/20 06:00 94 22 113/68 (84) 93 High Flow N/C 15.00 07/11/20 05:52 High Flow N/C 15.00 07/11/20 05:45 98 30 110/76 (90) 97 High Flow N/C 15.00 07/11/20 05:30 98 106/73 (84) 97 Non Rebreather 15.00 07/11/20 05:15 97 107/73 (84) 99 Non Rebreather 15.00 07/11/20 05:07 99 07/11/20 05:07 93 30 127/72 (90) 99 Non Rebreather 15.00 07/11/20 04:42 99 22 128/76 99 NIV Bilevel I & O 07/12/20 07:00 Intake Total 4272.5 ml Output Total 2850 ml Balance 1422.5 ml Height & Weight Height: 6'0" Weight: 174lbs. 3.0oz. 79.291217ra; 23.52 BMI Method:Stated General Appearance: No Apparent Distress, Chronically ill HEENT: PERRL/EOMI, Pharynx Normal Neck: Normal Inspection, Supple Respiratory: No Accessory Muscle Use, No Respiratory Distress, Decreased Breath Sounds, Wheezing Cardiovascular: Regular Rate, Rhythm, No Edema, No Murmur Capillary Refill: Less Than 3 Seconds Extremity: Non Tender, No Pedal Edema Neurologic/Psychiatric: Alert, Oriented x3, Normal Mood/Affect Skin: Normal Color, Warm/Dry Results Lab Laboratory Tests 07/11/20 02:09 07/12/20 02:45 Assessment/Plan Assessment/Plan Acute on chronic respiratory failure -BiPAP PRN -oxgen -- Decrease for Sp02 90-92% -currently on 4 liters -SVNs -Negative for COVID and flu Sepsis -Check PCT -Page cultures -Vanco and cefepime COPDAE -Change Decadron to Prendnisone -SVNS -Monitor Anemia -Monitor NINA RIVAS MED STUDENT Jul 12, 2020 03:31
[2020-07-12] MEDS: predniSONE 20 MG TAB PO SCH (05:14)
[2020-07-12] MEDS: LACTATED RINGERS 1,000 ML IV SCH (05:14)
--- NOTE | 2020-07-12 05:15 | Pulmonary Progress Note ---
Subjective Time Seen by a Provider: 05:12 Subjective/Events-last exam No complications noted. Sepsis Event Evaluation Height, Weight, BMI Height: 6'0" Weight: 174lbs. 3.0oz. 79.060527ss; 23.52 BMI Method:Stated Focused Exam Lactate Level 07/11/20 02:09: Lactic Acid Level 1.40 Exam Exam Vital Signs Date Time Temp Pulse Resp B/P (MAP) Pulse Ox O2 Delivery O2 Flow Rate FiO2 07/12/20 04:05 36.9 High Flow N/C 4.00 07/12/20 04:02 83 22 90/61 (71) 97 High Flow N/C 4.00 07/12/20 03:00 99 High Flow N/C 4.00 07/12/20 02:30 96 Nasal Cannula 4.00 07/12/20 00:00 88 19 115/73 (87) 98 High Flow N/C 4.00 07/11/20 23:00 53 26 121/93 (102) 95 High Flow N/C 4.00 07/11/20 23:00 97 High Flow N/C 4.00 07/11/20 22:58 37.0 High Flow N/C 4.00 07/11/20 22:11 96 Nasal Cannula 4.00 07/11/20 22:00 82 25 133/74 (91) 100 High Flow N/C 4.00 07/11/20 21:00 84 20 109/78 (92) 100 High Flow N/C 4.00 07/11/20 20:00 80 13 107/69 (75) 98 High Flow N/C 4.00 07/11/20 19:25 96 High Flow N/C 4.00 07/11/20 19:00 36.8 81 23 103/64 (77) 98 High Flow N/C 4.00 07/11/20 18:31 96 Nasal Cannula 4.00 07/11/20 18:00 82 81 117/71 (86) 96 High Flow N/C 1.00 07/11/20 17:00 85 17 109/74 (86) 97 High Flow N/C 1.00 07/11/20 16:14 94 Nasal Cannula 1.00 07/11/20 16:00 84 23 119/78 (92) 95 High Flow N/C 1.00 07/11/20 15:30 37.2 07/11/20 15:19 92 Nasal Cannula 2.00 07/11/20 15:00 93 16 102/67 (79) 93 High Flow N/C 1.00 07/11/20 14:00 103 20 113/79 (90) 93 High Flow N/C 1.00 07/11/20 13:05 103 07/11/20 13:00 93 13 130/79 (96) 92 High Flow N/C 1.00 07/11/20 12:00 92 24 106/71 (83) 94 High Flow N/C 1.00 07/11/20 11:16 94 Nasal Cannula 1.00 07/11/20 11:00 97 25 125/79 (94) 94 High Flow N/C 1.00 07/11/20 10:16 94 Nasal Cannula 1.00 07/11/20 10:00 92 21 135/85 (102) 92 High Flow N/C 1.00 07/11/20 09:00 91 23 111/74 (86) 94 High Flow N/C 1.00 07/11/20 09:00 37.2 07/11/20 08:00 92 16 120/81 (94) High Flow N/C 1.00 07/11/20 08:00 94 Nasal Cannula 1.00 07/11/20 07:00 91 21 103/69 (80) 92 High Flow N/C 15.00 07/11/20 06:45 96 23 127/75 (91) 91 High Flow N/C 15.00 07/11/20 06:40 102 07/11/20 06:30 105 22 121/88 (110) High Flow N/C 15.00 07/11/20 06:15 99 28 125/76 (97) 91 High Flow N/C 15.00 07/11/20 06:00 94 22 113/68 (84) 93 High Flow N/C 15.00 07/11/20 05:52 High Flow N/C 15.00 07/11/20 05:45 98 30 110/76 (90) 97 High Flow N/C 15.00 07/11/20 05:30 98 106/73 (84) 97 Non Rebreather 15.00 07/11/20 05:15 97 107/73 (84) 99 Non Rebreather 15.00 I & O 07/12/20 07:00 Intake Total 4545.0 ml Output Total 2850 ml Balance 1695.0 ml Height & Weight Height: 6'0" Weight: 174lbs. 3.0oz. 79.464821jp; 23.52 BMI Method:Stated General Appearance: No Apparent Distress, Chronically ill HEENT: PERRL/EOMI, Pharynx Normal Neck: Normal Inspection, Supple Respiratory: No Accessory Muscle Use, No Respiratory Distress, Decreased Breath Sounds, Wheezing Cardiovascular: Regular Rate, Rhythm, No Edema, No Murmur Capillary Refill: Less Than 3 Seconds Extremity: Non Tender, No Pedal Edema Neurologic/Psychiatric: Alert, Oriented x3, Normal Mood/Affect Skin: Normal Color, Warm/Dry Results Lab Laboratory Tests 07/11/20 02:09 07/12/20 02:45 Assessment/Plan Assessment/Plan Acute on chronic respiratory failure -BiPAP PRN -oxgen -- Decrease for Sp02 90-92% -currently on 2 liters -SVNs -Negative for COVID and flu Sepsis -Check PCT -Page cultures -Vanco and cefepime COPDAE -Change Decadron to Prendnisone -SVNS -Monitor Anemia -Monitor RANI PACHECO DO Jul 12, 2020 05:15
--- NOTE | 2020-07-12 07:27 | Diagnostic Imaging Report ---
INDICATION: Exacerbation of COPD. Respiratory failure Upright portable chest shows normal heart size and vascularity. There is increasing right basilar atelectasis since 07/11/2020 study. There is patchy airspace disease on the left which is stable. There is no effusion or pneumothorax. IMPRESSION: Increasing right basilar atelectasis. Report was faxed to [facility] by jerry at 7:31AM. Dictated by: Dictated on workstation # [id number]
[2020-07-12] MEDS ORDERED: amLODIPine 5 MG (NORVASC) TAB PO SCH (08:00)
[2020-07-12] MEDS ORDERED: UMECLIDINIUM BROMIDE (INCRUSE ELLIPTA) 7'S IH SCH (08:00)
[2020-07-12] MEDS: GABAPENTIN 600 MG (NEURONTIN) TAB PO SCH (09:16)
[2020-07-12] MEDS: rOPINIRole 1 MG (REQUIP) TABLET PO SCH (09:17)
[2020-07-12] MEDS: PHENYTOIN 100 MG (DILANTIN) CAP PO SCH (09:17)
[2020-07-12] MEDS ORDERED: TROUGH ORDER-PHARMACY XX ONE (10:00)
[2020-07-12] MEDS ORDERED: CEFD300C3 PO ×2 (11:30)
--- NOTE | 2020-07-12 11:38 | Discharge Summary ---
Discharge Summary Hospital Course Was the Problem List Reviewed?: Yes Problems/Dx: (1) Sepsis Status: Acute Qualifiers: Qualified Codes: A41.9 - Sepsis, unspecified organism; R65.20 - Severe sepsis without septic shock; J96.02 - Acute respiratory failure with hypercapnia (2) Pneumonia, community acquired Status: Acute Qualifiers: Qualified Codes: J18.9 - Pneumonia, unspecified organism (3) Lung cancer metastatic to bone Status: Chronic (4) COPD (chronic obstructive pulmonary disease) Status: Chronic (5) Chronic respiratory failure with hypoxia Status: Acute Hospital Course Date of Admission: Jul 11, 2020 at 03:55 Admission Diagnosis: Acute on chronic respiratory failure with hypoxia and hypercapnia Family Physician/Provider: Amandeep Genao DO Date of Discharge: 07/12/20 Discharge Diagnosis: Acute on chronic respiratory failure with hypoxia and hypercapnia Hospital Course: Joel Adamson is a 64-year-old male with past medical history of 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 He was started on IV antibiotics for pneumonia. He quickly improved and his oxygen requirement returned to his baseline. He was prescribed a course of Omnicef on discharge. He should resume home health care on discharge. He should follow-up with his primary care physician in a week or two. Labs and Pending Lab Test: Laboratory Tests 07/12/20 02:45: White Blood Count 9.6, Red Blood Count 3.18L, Hemoglobin 7.8#L, Hematocrit 26L, Mean Corpuscular Volume 80, Mean Corpuscular Hemoglobin 25, Mean Corpuscular Hemoglobin Concent 31L, Red Cell Distribution Width 17.7H, Platelet Count 267, Mean Platelet Volume 9.3, Immature Granulocyte % (Auto) 1, Neutrophils (%) (Auto) 80H, Lymphocytes (%) (Auto) 8L, Monocytes (%) (Auto) 11, Eosinophils (%) (Auto) 0, Basophils (%) (Auto) 0, Neutrophils # (Auto) 7.7, Lymphocytes # (Auto) 0.7L, Monocytes # (Auto) 1.0, Eosinophils # (Auto) 0.0, Basophils # (Auto) 0.0, Immature Granulocyte # (Auto) 0.1, Sodium Level 134L, Potassium Level 4.1, Chloride Level 95L, Carbon Dioxide Level 30, Anion Gap 9, Blood Urea Nitrogen 7, Creatinine 0.64, Estimat Glomerular Filtration Rate > 60, BUN/Creatinine Ratio 11, Glucose Level 107H, Calcium Level 8.5, Phosphorus Level 3.1, Magnesium Level 1.7 Microbiology 07/11/20 MRSA Screen - Final, Complete MRSA not isolated 07/11/20 Urine Culture - Preliminary, Resulted Mixed Bacterial Krystal Staphylococcus aureus 07/11/20 Blood Culture - Preliminary, Resulted No growth Home Meds Active Cefdinir 300 Mg Capsule 300 Mg PO BID 5 Days Reported Xarelto (Rivaroxaban) 10 Mg Tablet 10 Mg PO 0300 Spiriva (Tiotropium Otho) 1 Inh Aerp 1 Inh IH 1500 Ropinirole HCl 1 Mg Tablet 1 Mg PO 0800 Atorvastatin Calcium 80 Mg Tablet 80 Mg PO 0300 Ventolin Hfa (Albuterol Sulfate) 18 Gm Hfa.aer.ad 2 Puff INH Q4H PRN Meloxicam 7.5 Mg Tablet 7.5 Mg PO 1500 PRN Amlodipine Besylate 5 Mg Tablet 5 Mg PO 0800 LAST FILLED 12-24-2019 #90 Lamotrigine 100 Mg Tablet 100 Mg PO 1500,2300 1500: 100MG +25MG TO EQUAL 125MG 2300: 100MG Neurontin (Gabapentin) 300 Mg Capsule 300 Mg PO 2300 Acetaminophen 500 Mg Tablet 1,000 Mg PO Q6H PRN Carbamazepine 200 Mg Tablet 400 Mg PO 1500 TAKES 2 (200 MG) TABLETS Lamotrigine 25 Mg Tablet 25 Mg PO 0300, 1500 0300: 25MG 1500: 100MG +25MG TO EQUAL 125MG Tegretol (Carbamazepine) 200 Mg Tablet 200 Mg PO 0300,0800,2300 Phenytoin Sodium Extended 100 Mg Capsule 100 Mg PO 0800,2300 Phenytoin Sodium Extended 100 Mg Capsule 200 Mg PO 1500 TAKES 2 (100 MG) CAPSULES Gabapentin 600 Mg Tablet 600 Mg PO 0800,1500 Assessment/Pt Instructions Take medications as prescribed. Complete your course of antibiotics even if you are feeling better. Follow-up with your primary care physician in about a week. Return with worsening shortness of breath, persistent fevers, or if you feel like you are getting worse. Discharge Planning: <30 minutes discharge planning Discharge Instructions Discharge Diet: No Restrictions Activity as Tolerated: Yes Consultations Pulmonology Discharge Physical Examination Vital Signs Vital Signs Date Time Temp Pulse Resp B/P (MAP) Pulse Ox O2 Delivery O2 Flow Rate FiO2 07/12/20 10:27 97 Nasal Cannula 4.00 07/12/20 08:00 98 23 158/93 (114) 07/12/20 07:27 37.0 General Appearance: No Apparent Distress, Chronically ill Respiratory: No Respiratory Distress, Decreased Breath Sounds, Wheezing Cardiovascular: Regular Rate, Rhythm, No Murmur Gastrointestinal: Normal Bowel Sounds, Non Tender, Soft Extremity: No Inflammation; Pedal Edema Skin: Normal Color, Warm/Dry Neurologic/Psychiatric: Alert, Oriented x3, Normal Mood/Affect Allergies: Coded Allergies: aspirin (Unverified Allergy, Mild, DOES NOT WORK WELL W/ OTHER MEDS, 09/20/19) ibuprofen (Unverified Allergy, Mild, 09/20/19) hydrocodone (Verified Adverse Reaction, Intermediate, BECOMES TOO SEDATED, 09/22/19) Copy Copies To 1: AMANDEEP GENAO DO Discharge Summary Date of Admission Jul 11, 2020 at 03:55 Date of Discharge Discharge Date: Jul 12, 2020 Discharge Time: 11:32 Admission Diagnosis Sepsis due to pneumonia Consults/Procedures Consulations Pulmonology Discharge Diagnosis Sepsis due to pneumonia Acute on chronic respiratory failure with hypoxia End stage COPD Metastatic lung cancer to the bone (1) Sepsis Status: Acute Qualifiers: Qualified Codes: A41.9 - Sepsis, unspecified organism; R65.20 - Severe sepsis without septic shock; J96.02 - Acute respiratory failure with hypercapnia (2) Pneumonia, community acquired Status: Acute Qualifiers: Qualified Codes: J18.9 - Pneumonia, unspecified organism (3) Lung cancer metastatic to bone Status: Chronic (4) COPD (chronic obstructive pulmonary disease) Status: Chronic (5) Chronic respiratory failure with hypoxia Status: Acute SENG JOSEPH MD Jul 12, 2020 11:36
== END 2020-07-12 12:36 | disposition home health service (06) | DRG 871 ==
LOC: EDUNIT# 02:23 → ER 02:24 → ICU 03:55
PROVIDERS: ADMIT Internal Medicine; ATTEND Internal Medicine
PROC: 5A09357 Assistance with Respiratory Ventilation, Less than 24 Consecutive Hours, Continuous Positive Airway Pressure (ICD-10-PCS; principal; 2020-07-11)
DX: A41.9 Sepsis, unspecified organism (principal); J18.9 Pneumonia, unspecified organism; J96.21 Acute and chronic respiratory failure with hypoxia; J96.22 Acute and chronic respiratory failure with hypercapnia; C34.90 Malignant neoplasm of unspecified part of unspecified bronchus or lung; C79.51 Secondary malignant neoplasm of bone; J44.0 Chronic obstructive pulmonary disease with (acute) lower respiratory infection; J44.1 Chronic obstructive pulmonary disease with (acute) exacerbation; R65.20 Severe sepsis without septic shock; Z99.81 Dependence on supplemental oxygen; D64.9 Anemia, unspecified; Z88.6 Allergy status to analgesic agent; Z87.891 Personal history of nicotine dependence; Z20.822 Contact with and (suspected) exposure to COVID-19; G47.39 Other sleep apnea; K21.9 Gastro-esophageal reflux disease without esophagitis; E78.00 Pure hypercholesterolemia, unspecified; I10 Essential (primary) hypertension; G62.9 Polyneuropathy, unspecified; G40.909 Epilepsy, unspecified, not intractable, without status epilepticus; M19.90 Unspecified osteoarthritis, unspecified site; Z92.21 Personal history of antineoplastic chemotherapy; G83.9 Paralytic syndrome, unspecified
CPT/HCPCS: 36415; 71045; 80048; 80053; 81000; 82805; 83605; 83735; 84100; 84145; 85025; 85610; 85730; 87040; 87077; 87081; 87088; 87635; 87804; 94640; 94660

== ENCOUNTER 2020-07-18 12:22 | Outpatient (RCR) | payer MEDICARE, MEDICAID ==
[~2020-07-18 12:22] MED LIST changes: -ACETAMINOPHEN 500 MG TAB (TYLENOL) ONE; -CEFEPIME 1 GM/10 ML (MAXIPIME) VIAL ONE; -LACTATED RINGERS 1,000 ML IV ONE; -WATER (STERILE) FOR INJECTION 10 ML ONE
[2020-07-18 13:14] LABS: BASOPHILS % (AUTO) 0 % (0-10); EOSINOPHILS % (AUTO) 0 % (0-10); HEMATOCRIT 29 % (40-54); HEMOGLOBIN 8.7 g/dL (13.3-17.7); LYMPHOCYTES # (AUTO) 0.7 10^3/uL (1.0-4.0); LYMPHOCYTES % (AUTO) 11 % (12-44); MEAN CORPUSCULAR HEMOGLOBIN 24 pg (25-34); MEAN CORPUSCULAR HGB CONC 30 g/dL (32-36); MEAN CORPUSCULAR VOLUME 80 fL (80-99); MEAN PLATELET VOLUME 8.8 fL (9.0-12.2); MONOCYTES # (AUTO) 0.8 10^3/uL (0.0-1.0); MONOCYTES % (AUTO) 12 % (0-12); NEUTROPHILS # (AUTO) 5.2 10^3/uL (1.8-7.8); NEUTROPHILS % (AUTO) 76 % (42-75); PLATELET COUNT 297 10^3/uL (130-400); WHITE BLOOD COUNT 6.8 10^3/uL (4.3-11.0)
[2020-07-18 13:34] LABS: ALANINE AMINOTRANSFERASE 11 U/L (0-55); ALBUMIN 3.5 GM/DL (3.2-4.5); ALKALINE PHOSPHATASE 173 U/L (40-136); BILIRUBIN,TOTAL 0.2 MG/DL (0.1-1.0); BUN/CREATININE RATIO 11; CALCIUM 8.6 MG/DL (8.5-10.1); CARBON DIOXIDE 28 MMOL/L (21-32); CHLORIDE 93 MMOL/L (98-107); CREATININE SERUM 0.64 MG/DL (0.60-1.30); GFR ESTIMATED > 60; GLUCOSE 102 MG/DL (70-105); POTASSIUM 4.2 MMOL/L (3.6-5.0); SODIUM 133 MMOL/L (135-145)
[2020-07-23] MEDS ORDERED: LISI20TA26 PO (00:29)
[2020-07-31] MEDS ORDERED: FLUT1BLS PO (15:17)
[2020-07-31] MEDS ORDERED: NEOM10SO8 LEFT EAR (15:17)
[2020-07-31] MEDS ORDERED: PRD50T PO (15:17)
[2020-07-31] MEDS ORDERED: ATOR40TA70 PO (15:17)
[2020-08-02] MEDS ORDERED: PRD20T PO (10:52)
[2020-08-02] MEDS ORDERED: CEPH500T PO (10:52)
[2020-08-21] MEDS ORDERED: FURO40TA4 PO (13:35)
[2020-08-21] MEDS ORDERED: ACET-2422 PO (13:35)
[2020-08-21] MEDS ORDERED: POTA20TA15 PO (13:35)
[2020-08-21] MEDS ORDERED: ATOR80TA76 PO (13:35)
[2020-08-21] MEDS ORDERED: FLUT1BLS IH (13:35)
[2020-08-21] MEDS ORDERED: IPRA3AMP31 NEB (13:35)
[2020-08-24] MEDS ORDERED: PRED10TA22 PO (11:55)
[2020-08-24] MEDS ORDERED: CEFD300C3 PO (11:55)
[2020-08-24] MEDS ORDERED: PANT40TA52 PO (11:55)
[2020-09-10] MEDS ORDERED: AMOX-358 PO (11:22)
== END 2020-09-13 | disposition home or self-care (01) ==
LOC: ONC 12:22
PROVIDERS: ATTEND Internal Medicine Hematology & Oncology
DX: C34.12 Malignant neoplasm of upper lobe, left bronchus or lung (principal); C79.51 Secondary malignant neoplasm of bone; J43.9 Emphysema, unspecified; G40.909 Epilepsy, unspecified, not intractable, without status epilepticus; E78.5 Hyperlipidemia, unspecified; Z79.899 Other long term (current) drug therapy; Z92.21 Personal history of antineoplastic chemotherapy; Z72.0 Tobacco use; Z98.890 Other specified postprocedural states
CPT/HCPCS: 80053; 85025; 99213

== ENCOUNTER 2020-07-31 10:54 | Inpatient (IN) | payer MEDICARE, MEDICAID ==
[~2020-07-31] VITALS: Ht 182 cm; Wt 86.1 kg
[2020-07-31] MEDS ORDERED: RT-ALBUTEROL SULF 2.5 MG/3 ML PRE-MIX VIAL ONE (11:03)
[2020-07-31] MEDS ORDERED: RT-ALBUTEROL/IPRATROPIUM 3 ML (DUONEB) VIAL ONE (11:05)
[2020-07-31] MEDS ORDERED: RT-ALBUTEROL SULF 2.5 MG/3 ML PRE-MIX VIAL INH STA (11:06)
[2020-07-31] MEDS ORDERED: NS IV 500 ML 500 ML IV ONE (11:15)
[2020-07-31] MEDS ORDERED: ACETAMINOPHEN 500 MG TAB (TYLENOL) PO PRN ×2 (11:15→17:30)
[2020-07-31] MEDS ORDERED: CEFEPIME INJECTION 1,000 MG in WATER (STERILE) FOR INJECTION 10 ML IV ONE (11:15)
[2020-07-31] MEDS ORDERED: RT-ALBUTEROL/IPRATROPIUM 3 ML (DUONEB) VIAL INH ONE (11:15)
[2020-07-31] MEDS ORDERED: VANCOMYCIN INJECTION 1,500 MG in NS IV 500 ML 500 ML IV ONE (11:15)
[2020-07-31] MEDS ORDERED: fentaNYL INJ 100 MCG/2 ML AMP IVP ONE (11:15)
[2020-07-31] MEDS ORDERED: NS IV 1000 ML 1,000 ML IV SCH (11:15)
[2020-07-31] MEDS ORDERED: methylPREDNISolone 125 MG (Solu-MEDROL) VIAL IVP ONE (11:15)
[2020-07-31 11:17] LABS: ABG BASE EXCESS 8.3 MMOL/L (-2.5-2.5); ABG OXYGEN SATURATION 94 % (94-100); ABG PCO2 68 MMHG (35-45); ABG PO2 89 MMHG (79-93); ABG TCO2 36.5 MMOL/L (21.0-31.0)
[2020-07-31 11:19] LABS: ABG PH 7.32 (7.37-7.43); ALLENS TEST YES-POS; INSPIRED O2 4 L; PATIENT TEMP 98.2; VENTILATOR NO
--- NOTE | 2020-07-31 11:20 | ED Respiratory ---
General Chief Complaint: Respiratory Problems Stated Complaint: SOB Source: patient Exam Limitations: no limitations History of Present Illness Date Seen by Provider: July 31, 2020 Time Seen by Provider: 10:55 Initial Comments Patient to the ER by EMS from home with chief complaint of worsening shortness of air and wheezing. He has had an occasional cough. He has a strong history of COPD on baseline 4 L by nasal cannula. He was recently dismissed from [facility] for pneumonia on prednisone on Friday, 5 days ago. Family states that his oxygen saturation was 89% on 5 L by nasal cannula. EMS heard wheezing and gave him a DuoNeb which she said gave him some benefit. Patient states he took a DuoNeb at home and it did not help very much. He is finishing up a prednisone course outpatient. No fevers chills chest pain. He does have some p ain in his left shoulder and left leg related to arthritis which he typically takes Mobic for. He is not sure if he has taken his Mobic yet. Patient states he is not on blood thinners anymore. Allergies and Home Medications Allergies Coded Allergies: aspirin (Unverified Allergy, Mild, DOES NOT WORK WELL W/ OTHER MEDS, 09/20/19) ibuprofen (Unverified Allergy, Mild, 09/20/19) hydrocodone (Verified Adverse Reaction, Intermediate, BECOMES TOO SEDATED, 09/22/19) Home Medications Acetaminophen 500 Mg Tablet, 1,000 MG PO Q6H PRN for PAIN-MILD (1-4), (Reported) Albuterol Sulfate 18 Gm Hfa.aer.ad, 2 PUFF INH Q4H PRN for SHORTNESS OF BREATH, (Reported) Amlodipine Besylate 5 Mg Tablet, 5 MG PO 0800, (Reported) LAST FILLED 12-24-2019 #90 Atorvastatin Calcium 80 Mg Tablet, 80 MG PO 0300, (Reported) Carbamazepine 200 Mg Tablet, 200 MG PO 0300,0800,2300, (Reported) Carbamazepine 200 Mg Tablet, 400 MG PO 1500, (Reported) TAKES 2 (200 MG) TABLETS Cefdinir 300 Mg Capsule, 300 MG PO BID Prescribed by: SENG JOSEPH on 07/12/20 1130 Gabapentin 600 Mg Tablet, 600 MG PO 0800,1500, (Reported) Gabapentin 300 Mg Capsule, 300 MG PO 2300, (Reported) Lamotrigine 25 Mg Tablet, 25 MG PO 0300, 1500, (Reported) 0300: 25MG 1500: 100MG +25MG TO EQUAL 125MG Lamotrigine 100 Mg Tablet, 100 MG PO 1500,2300, (Reported) 1500: 100MG +25MG TO EQUAL 125MG 2300: 100MG Lisinopril 20 Mg Tablet, 20 MG PO DAILY, (Reported) Meloxicam 7.5 Mg Tablet, 7.5 MG PO 1500 PRN for MUSCLE SPASMS, (Reported) Phenytoin Sodium Extended 100 Mg Capsule, 200 MG PO 1500, (Reported) TAKES 2 (100 MG) CAPSULES Phenytoin Sodium Extended 100 Mg Capsule, 100 MG PO 0800,2300, (Reported) Rivaroxaban 10 Mg Tablet, 10 MG PO 0300, (Reported) Ropinirole HCl 1 Mg Tablet, 1 MG PO 0800, (Reported) Tiotropium [place] 1 Inh Aerp, 1 INH IH 1500, (Reported) Patient Home Medication List Home Medication List Reviewed: Yes Review of Systems Review of Systems Constitutional: No chills, No diaphoresis EENTM: No ear discharge, No ear pain Respiratory: cough; No hemoptysis, No phlegm; short of breath, wheezing Cardiovascular: No chest pain, No edema, No palpitations Gastrointestinal: No abdominal pain, No constipation, No nausea Genitourinary: No discharge, No dysuria Musculoskeletal: see HPI; No back pain; joint pain Psychiatric/Neurological: Denies Anxiety, Denies Depressed Past Nunmgux-Hrwdnq-Ivmocu Hx Patient Social History Alcohol Use: Denies Use Drug of Choice: HX OF RX DRUG ABUSE, CLAIMS NONE FOR 15 YEARS Smoking Status: Current Everyday Smoker Type Used: Cigars, Cigarettes 2nd Hand Smoke Exposure: Yes Recent Hopitalizations: No Immunizations Up To Date Tetanus Booster (TDap): Less than 5yrs PED Vaccines UTD: Yes Date of Influenza Vaccine: Apr 21, 2018 Seasonal Allergies Seasonal Allergies: Yes Past Medical History Surgeries: Yes (C-SPINE SURGERY FOR FX; LEFT LOWER LEG SURGERY 10/2019) Eye Surgery, Gallbladder, Orthopedic Respiratory: Yes (O2 AT 4L/NC CONTINUOUSLY;LUNG CANCER;MULT EPISODES OF PNEUMONIA) Asthma, Pneumonia, Chronic Bronchitis, Sleep Apnea, COPD Currently Using CPAP: No Currently Using BIPAP: No Cardiac: Yes (CEREBROVASCULAR DISEASE) Heart Murmur, High Cholesterol, Hypertension, Valvular Heart Disease 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) Neuropathy, Paralysis, Seizure Disorder, Vertigo Reproductive Disorders: No Sexually Transmitted Disease: No HIV/AIDS: No Genitourinary: No Gastrointestinal: Yes (CHRONIC N/V) Gastroesophageal Reflux Musculoskeletal: Yes (HX C-SPINE FX/NON-UNION OF ODONTOID; FALLS;POST POLIO-L SIDE WEAKNESS/CONTR) Arthritis, Fractures, Contracture Endocrine: No HEENT: Yes (DENTURES) Loss of Vision: Denies Hearing Impairment: Denies Cancer: Yes Bone, Lung Did You Recieve Any Treatments: Yes What Type of Treatment Did You: Chemotherapy Psychosocial: No Integumentary: Yes (DECUBITUS ULCERS ON SACRUM/BUTTOCKS AREA) Blood Disorders: No Adverse Reaction/Blood Tranf: No Family Medical History Diabetes mellitus 19 MOTHER Hypercholesterolemia 19 FATHER Hypertension 19 FATHER Heart Disease SOCIAL HISTORY: -ETOH--HISTORY OF ABUSE, CLAIMS NO RECENT USE -DRUGS--HISTORY OF RX DRUG ABUSE, CLAIMS NO USE FOR YEARS. -SMOKES AT LEAST 1 1/2 PPD, ALSO SMOKES CIGARS PAST SURGICAL HISTORY: -BILATERAL CATARACT SURGERY 2017 -CHOLECYSTECTOMY -CERVICAL SPINE FUSION 07/2019--HAD SUBLUXATION OF CHRONIC NON-HEALING ODONTOID FRACTURE--DONE BY DR. PRESCOTT -PORT RIGHT CHEST -CT GUIDED BIOPSY OF FEMUR ADDITIONAL PAST MEDICAL HISTORY: -PT HAD NON-HEALING FRACTURE OF ODONTOID 02/2018--NO SURGERY AT THAT TIME -07/30/19-PT HAD SUBLUXATION OF THIS FRACTURE AND HAD CERVICAL SPINE FUSION 07/201906/08/19--LEFT TIB-FIB FRACTURE, TREATED BY BOTH DR. BENITES AT [facility] AND BY DR. RUBY. HAD SURGERY AROUND 11/26/[address] 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 PROGRESSION FO MODERATE STENOSIS OF CERVICAL LEFT ICA. CHRONIC ODONTOID FRACTURE WITH PROGRESSOIN OF CORTICATION OF FRACTURE MARGINS, STABLE LEFTWARD DISPLACEMENT OF ODONTOID PROCESS FRACTURE IN RELATION TO C2 VERTEBRA ----PT CANNOT TAKE ASPIRIN DUE TO SEIZURES, CURRENTLY ON XARELTO OF 05/2020 Physical Exam Vital Signs - First Documented 07/31/20 10:54 Temp 36.7 Pulse 100 Resp 30 B/P (MAP) 153/87 (109) Pulse Ox 98 O2 Delivery Nasal Cannula O2 Flow Rate 4.00 Capillary Refill : Height: 6'0" Weight: 174lbs. 3.0oz. [id number]; 26.78 BMI Method:Stated General Appearance: mild distress, other (Chronically ill) Eyes: Bilateral Eye Normal Inspection, Bilateral Eye PERRL, Bilateral Eye EOMI HEENT: PERRL/EOMI, pharynx normal (Oropharynx dry) Neck: full range of motion, normal inspection Respiratory: respiratory distress (Mild to moderate increased work of breathing with wheezing heard throughout. No crackles or rales), accessory muscle use (Mild), wheezing (Bilateral with diminished breath sounds bilaterally.) Cardiovascular: normal peripheral pulses, regular rate, rhythm Gastrointestinal: non tender, soft Neurologic/Psychiatric: alert, oriented x 3 Skin: normal color, warm/dry Focused Exam Lactate Level 07/31/20 11:08: Lactic Acid Level 0.71 Lactic Acid Level Laboratory Tests Test 07/31/20 11:08 Lactic Acid Level 0.71 MMOL/L (0.50-2.00) Procedures/Interventions Date of ETT Placement: Mar 09, 2017 Time of ETT Placement: 1811 Suture Size: 5-0 Progress/Results/Core Measures Suspected Sepsis SIRS Temperature: Pulse: Respiratory Rate: Laboratory Tests 07/31/20 11:08: White Blood Count 12.8H Blood Pressure / Mean: 07/31/20 11:08: Lactic Acid Level 0.71 Laboratory Tests 07/31/20 11:08: Creatinine 0.72, INR Comment 0.9, Platelet Count 320, Total Bilirubin 0.3 Results/Orders Lab Results Laboratory Tests Test 07/31/20 11:08 07/31/20 11:09 07/31/20 11:19 Range/Units White Blood Count 12.8 H 4.3-11.0 10^3/uL Red Blood Count 3.52 L 4.30-5.52 10^6/uL Hemoglobin 9.4 L 13.3-17.7 g/dL Hematocrit 31 L 40-54 % Mean Corpuscular Volume 88 80-99 fL Mean Corpuscular Hemoglobin 27 25-34 pg Mean Corpuscular Hemoglobin Concent 30 L 32-36 g/dL Red Cell Distribution Width 19.6 H 10.0-14.5 % Platelet Count 320 130-400 10^3/uL Mean Platelet Volume 9.5 9.0-12.2 fL Immature Granulocyte % (Auto) 1 % Neutrophils (%) (Auto) 94 H 42-75 % Lymphocytes (%) (Auto) 3 L 12-44 % Monocytes (%) (Auto) 2 0-12 % Eosinophils (%) (Auto) 0 0-10 % Basophils (%) (Auto) 0 0-10 % Neutrophils # (Auto) 12.0 H 1.8-7.8 10^3/uL Lymphocytes # (Auto) 0.4 L 1.0-4.0 10^3/uL Monocytes # (Auto) 0.3 0.0-1.0 10^3/uL Eosinophils # (Auto) 0.0 0.0-0.3 10^3/uL Basophils # (Auto) 0.0 0.0-0.1 10^3/uL Immature Granulocyte # (Auto) 0.2 H 0.0-0.1 10^3/uL Neutrophils % (Manual) 95 % Lymphocytes % (Manual) 2 % Monocytes % (Manual) 3 % Hypochromasia MODERATE Prothrombin Time 12.9 12.2-14.7 SEC INR Comment 0.9 0.8-1.4 Activated Partial Thromboplast Time 42 H 24-35 SEC D-Dimer 0.95 H 0.00-0.49 UG/ML Sodium Level 132 L 135-145 MMOL/L Potassium Level 4.8 3.6-5.0 MMOL/L Chloride Level 91 L 98-107 MMOL/L Carbon Dioxide Level 32 21-32 MMOL/L Anion Gap 9 5-14 MMOL/L Blood Urea Nitrogen 9 7-18 MG/DL Creatinine 0.72 0.60-1.30 MG/DL Estimat Glomerular Filtration Rate > 60 BUN/Creatinine Ratio 13 Glucose Level 145 H 70-105 MG/DL Lactic Acid Level 0.71 0.50-2.00 MMOL/L Calcium Level 8.4 L 8.5-10.1 MG/DL Corrected Calcium 8.8 8.5-10.1 MG/DL Total Bilirubin 0.3 0.1-1.0 MG/DL Aspartate Amino Transf (AST/SGOT) 12 5-34 U/L Alanine Aminotransferase (ALT/SGPT) 10 0-55 U/L Alkaline Phosphatase 183 H 40-136 U/L C-Reactive Protein High Sensitivity 4.62 H 0.00-0.50 MG/DL Total Protein 7.1 6.4-8.2 GM/DL Albumin 3.5 3.2-4.5 GM/DL Procalcitonin 0.02 <0.10 NG/ML Coronavirus 2019 (MARGI) Not Detected Not Detecte Blood Gas Puncture Site LT RAD Blood Gas Patient Temperature 98.2 Arterial Blood pH 7.32 *L 7.37-7.43 Arterial Blood Partial Pressure CO2 68 H 35-45 MMHG Arterial Blood Partial Pressure O2 89 79-93 MMHG Arterial Blood HCO3 34 H 23-27 MMOL/L Arterial Blood Total CO2 36.5 H 21.0-31.0 MMOL/L Arterial Blood Oxygen Saturation 94 94-100 % Arterial Blood Base Excess 8.3 H -2.5-2.5 MMOL/L Johan Test YES-POS Blood Gas Ventilator Setting NO Blood Gas Inspired Oxygen 4 L Urine Color YELLOW Urine Clarity CLEAR Urine pH 6.0 5-9 Urine Specific [place] 1.015 L 1.016-1.022 Urine Protein 1+ H NEGATIVE Urine Glucose (UA) NEGATIVE NEGATIVE Urine Ketones NEGATIVE NEGATIVE Urine Nitrite POSITIVE H NEGATIVE Urine Bilirubin NEGATIVE NEGATIVE Urine Urobilinogen 0.2 < = 1.0 MG/DL Urine Leukocyte Esterase 2+ H NEGATIVE Urine RBC (Auto) 3+ H NEGATIVE Urine RBC 50-100 H /HPF Urine WBC 25-50 H /HPF Urine Crystals NONE /LPF Urine Bacteria MODERATE H /HPF Urine Casts NONE /LPF Urine Mucus NEGATIVE /LPF Urine Culture Indicated YES My Orders Orders - KALEN LUZ Albuterol Pre-Mix Nebs (Rt) (Proventil (07/31/20 11:03) Cbc With Automated Diff (07/31/20 11:06) Comprehensive Metabolic Panel (07/31/20 11:06) Blood Culture (07/31/20 11:06) Sputum Culture (07/31/20 11:06) Urinalysis (07/31/20 11:06) Urine Culture (07/31/20 11:06) Protime With Inr (07/31/20 11:06) Partial Thromboplastin Time (07/31/20 11:06) Chest 1 View, Ap/Pa Only (07/31/20 11:06) Acetaminophen Tablet (Tylenol Tablet) (07/31/20 11:15) Ed Iv/Invasive Line Start (07/31/20 11:06) Ed Iv/Invasive Line Start (07/31/20 11:06) Vital Signs Adult Sepsis Patie Q15M (07/31/20 11:06) O2 (07/31/20 11:06) Remove Rings In Anticipation O (07/31/20 11:06) Lactic Acid Analyzer (07/31/20 11:06) Ns Iv 1000 Ml (Sodium Chloride 0.9%) (07/31/20 11:15) Cefepime Injection (Maxipime Injection) (07/31/20 11:15) Vancomycin Injection (Vancomycin Injecti (07/31/20 11:15) Covid 19 Inhouse Test (07/31/20 11:06) Ed Iv/Invasive Line Start (07/31/20 11:06) Ns Iv 500 Ml (Sodium Chloride 0.9%) (07/31/20 11:15) Methylprednisolone Sod Succ (Solu-Medrol (07/31/20 11:15) Hs C Reactive Protein (07/31/20 11:06) Procalcitonin (Pct) (07/31/20 11:06) Fibrin Degradation Products (07/31/20 11:06) Albuterol Pre-Mix Nebs (Rt) (Proventil (07/31/20 11:06) Albuterol/Ipra Inhalation Soln (Duoneb I (07/31/20 11:15) Svn Small Volume Nebulizer (07/31/20 11:06) Svn Small Volume Nebulizer (07/31/20 11:06) Fentanyl Inj (Sublimaze Injection) (07/31/20 11:15) Albuterol/Ipra Inhalation Soln (Duoneb I (07/31/20 11:05) Arterial Blood Gas (07/31/20 11:14) Manual Differential (07/31/20 11:08) Medications Given in ED Current Medications Medications Dose Ordered Sig/Porfirio Route Start Time Stop Time Status Last Admin Dose Admin Acetaminophen 1,000 mg ONCE PRN PO 07/31/20 11:15 07/31/20 11:33 DC 07/31/20 11:28 1,000 MG Albuterol/ Ipratropium 3 ml ONCE ONCE INH 07/31/20 11:15 07/31/20 11:16 DC 07/31/20 11:16 3 ML Cefepime HCl 1000 mg/Sterile Water 10 ml @ 200 mls/hr ONCE ONCE IV 07/31/20 11:15 07/31/20 11:17 DC 07/31/20 11:30 200 MLS/HR Fentanyl Citrate 25 mcg ONCE ONCE IVP 07/31/20 11:15 07/31/20 11:16 DC 07/31/20 11:32 25 MCG Methylprednisolone Sodium Succinate 125 mg ONCE ONCE IVP 07/31/20 11:15 07/31/20 11:16 DC 07/31/20 11:32 125 MG Vancomycin HCl 1500 mg/Sodium Chloride 500 ml @ 257 mls/hr ONCE ONCE IV 07/31/20 11:15 07/31/20 13:11 07/31/20 11:53 257 MLS/HR Vital Signs/I&O 07/31/20 07/31/20 10:54 10:54 Temp 36.7 Pulse 100 Resp 30 B/P (MAP) 153/87 (109) Pulse Ox 98 98 O2 Delivery Nasal Cannula Nasal Cannula O2 Flow Rate 4.00 4.00 Capillary Refill : Progress Note : Time: 11:19 Progress Note Patient is in moderate respiratory distress but after a breathing treatment by EMS he was put back on 4 L by nasal cannula and maintaining 97% oxygen saturation. He still quite wheezy and states he is uncomfortable and is working to breathe extra hard so we will give him an hour-long breathing treatment, 125 mg Solu-Medrol IV check some labs and initiate a septic work-up based on his history of being treated for pneumonia. He was not being treated outpatient which makes this diagnosis dubious. Suspect he is having COPD exacerbation plus or minus pneumonia. We will give him 1500 cc of fluids which should be approximately 20 mL/kg. ABG. Diagnostic Imaging Diagonstic Imaging: Xray Plain Films/CT/US/NM/MRI: chest Reviewed: Reviewed by Me Departure Communication (Admissions) Time/Spoke to Admitting Phy: 12:35 Discussed the case with Dr. Multani and she agrees to admit the patient to the ICU on Vapotherm. Rocephin for UTI. Impression Primary Impression: COPD exacerbation Additional Impressions: UTI (urinary tract infection) Qualified Codes: N30.01 - Acute cystitis with hematuria Sepsis Qualified Codes: A41.9 - Sepsis, unspecified organism; R65.20 - Severe sepsis without septic shock; J96.02 - Acute respiratory failure with hypercapnia Acute respiratory failure with hypercapnia Disposition: ADMITTED INPATIENT Condition: Stable Admissions Decision to Admit Reason: Admit from ER (General) Decision to Admit/Date: July 31, 2020 Time/Decision to Admit Time: 11:10 Departure-Patient Inst. Referrals: AMANDEEP GENAO DO (PCP/Family) Primary Care Physician KALEN LUZ July 31, 2020 11:20
[2020-07-31 11:21] LABS: BASOPHILS % (AUTO) 0 % (0-10); EOSINOPHILS % (AUTO) 0 % (0-10); HEMATOCRIT 31 % (40-54); HEMOGLOBIN 9.4 g/dL (13.3-17.7); LYMPHOCYTES # (AUTO) 0.4 10^3/uL (1.0-4.0); LYMPHOCYTES % (AUTO) 3 % (12-44); MEAN CORPUSCULAR HEMOGLOBIN 27 pg (25-34); MEAN CORPUSCULAR HGB CONC 30 g/dL (32-36); MEAN CORPUSCULAR VOLUME 88 fL (80-99); MEAN PLATELET VOLUME 9.5 fL (9.0-12.2); MONOCYTES # (AUTO) 0.3 10^3/uL (0.0-1.0); MONOCYTES % (AUTO) 2 % (0-12); NEUTROPHILS % (AUTO) 94 % (42-75); PLATELET COUNT 320 10^3/uL (130-400); WHITE BLOOD COUNT 12.8 10^3/uL (4.3-11.0)
[2020-07-31 11:30] LABS: ALBUMIN 3.5 GM/DL (3.2-4.5); CHLORIDE 91 MMOL/L (98-107); POTASSIUM 4.8 MMOL/L (3.6-5.0); SODIUM 132 MMOL/L (135-145)
[2020-07-31 11:31] LABS: CALCIUM 8.4 MG/DL (8.5-10.1)
[2020-07-31 11:32] LABS: GLUCOSE 145 MG/DL (70-105); HYPOCHROMASIA MODERATE; LYMPHOCYTES % (MANUAL) 2 %; MONOCYTES % (MANUAL) 3 %; NEUTROPHILS % (MANUAL) 95 %
[2020-07-31 11:33] LABS: INR 0.9 (0.8-1.4); PROTHROMBIN TIME PATIENT 12.9 SEC (12.2-14.7); TOTAL PROTEIN 7.1 GM/DL (6.4-8.2)
[2020-07-31 11:34] LABS: BILIRUBIN,TOTAL 0.3 MG/DL (0.1-1.0); CARBON DIOXIDE 32 MMOL/L (21-32); FIBRIN DEGRADATION PRODUCTS 0.95 UG/ML (0.00-0.49)
[2020-07-31 11:36] LABS: ALKALINE PHOSPHATASE 183 U/L (40-136); CREATININE SERUM 0.72 MG/DL (0.60-1.30); GFR ESTIMATED > 60
[2020-07-31 11:37] LABS: BUN/CREATININE RATIO 13
[2020-07-31 11:39] LABS: ALANINE AMINOTRANSFERASE 10 U/L (0-55)
[2020-07-31 11:46] LABS: BILIRUBIN,URINE NEGATIVE (NEGATIVE); CLARITY,URINE CLEAR; COLOR,URINE YELLOW; GLUCOSE, URINE (UA) NEGATIVE (NEGATIVE); KETONES,URINE NEGATIVE (NEGATIVE); LEUKOCYTE ESTERASE ,URINE 2+ (NEGATIVE); NITRITE,URINE POSITIVE (NEGATIVE); PROTEIN,URINE 1+ (NEGATIVE)
[2020-07-31 11:54] LABS: BACTERIA,URINE MODERATE /HPF; RBC,URINE 50-100 /HPF; WBC,URINE 25-50 /HPF
--- NOTE | 2020-07-31 12:11 | Diagnostic Imaging Report ---
HISTORY: Sepsis COMPARISON: 07/23/2020 TECHNIQUE: Frontal view of the chest. FINDINGS: There is chronic atelectasis/scarring in the right lung base which appears unchanged compared to the prior exam. Perihilar opacity and haziness in the left midlung are unchanged since the prior exam. No pleural effusion or pneumothorax is seen. The right Port-A-Cath tip is at the low SVC, unchanged. The cardiac silhouette is normal in size. There is severe degenerative change in the shoulders bilaterally. IMPRESSION: 1. Chronic opacities in the lungs appear unchanged since the prior exam, likely atelectasis/scarring. No new consolidation is seen. Dictated by: Dictated on workstation # [id number]
[2020-07-31] MEDS ORDERED: cefTRIAXone 1,000 MG/SWFI 10 ML IV PUSH IV SCH ×2 (15:00)
[2020-07-31] MEDS ORDERED: ACETAMINOPHEN 325 MG TABLET PO PRN ×2 (15:15)
[2020-07-31] MEDS ORDERED: HYDROcodone/APAP 5 MG/325 MG (LORTAB) TAB PO PRN (15:15)
[2020-07-31] MEDS ORDERED: oxyCODONE/APAP 5/325MG (PERCOCET 5) TABLET PO PRN (15:15)
[2020-07-31] MEDS ORDERED: ONDANSETRON 4 MG/2 ML (SDV) Z0FRAN IVP PRN (15:15)
[2020-07-31] MEDS ORDERED: NEOM10SO8 LEFT EAR (15:17)
[2020-07-31] MEDS ORDERED: PRD50T PO (15:17)
[2020-07-31] MEDS ORDERED: ATOR40TA70 PO (15:17)
[2020-07-31] MEDS ORDERED: FLUT1BLS PO (15:17)
[2020-07-31] MEDS: LACTATED RINGERS 1,000 ML IV SCH ×2 (15:37→22:57)
[2020-07-31] MEDS: MELOXICAM 7.5 MG (MOBIC) TABLET PO SCH (15:37)
[2020-07-31 16:51] VITALS: BP 153/87
[2020-07-31] MEDS ORDERED: RT-ALBUTEROL SULF 2.5 MG/3 ML PRE-MIX VIAL INH PRN ×2 (17:00→17:30)
[2020-07-31] MEDS ORDERED: MELOXICAM 7.5 MG (MOBIC) TABLET PO PRN (17:30)
[2020-07-31] MEDS ORDERED: RT-ALBUTEROL/IPRATROPIUM 3 ML (DUONEB) VIAL INH SCH (18:00)
[2020-07-31] MEDS: methylPREDNISolone 125 MG (Solu-MEDROL) VIAL IVP SCH (18:08)
[2020-07-31] MEDS: GABAPENTIN 300 MG (NEURONTIN) CAP PO SCH (22:57)
[2020-07-31] MEDS: PHENYTOIN 100 MG (DILANTIN) CAP PO SCH (22:57)
[2020-07-31] MEDS: carBAMazepine 200 MG (TEGretol) TAB PO SCH (22:57)
[2020-08-01] MEDS: methylPREDNISolone 125 MG (Solu-MEDROL) VIAL IVP SCH (00:40)
[2020-08-01] MEDS: RIVAROXABAN 10 MG TABLET (XARELTO) PO SCH (03:05)
[2020-08-01] MEDS: lamoTRIgine 25 MG (LaMICtal) TAB PO SCH (03:05)
[2020-08-01] MEDS: carBAMazepine 200 MG (TEGretol) TAB PO SCH ×3 (03:05→23:37)
[2020-08-01 03:35] LABS: BASOPHILS % (AUTO) 0 % (0-10); EOSINOPHILS % (AUTO) 0 % (0-10); HEMATOCRIT 29 % (40-54); HEMOGLOBIN 8.7 g/dL (13.3-17.7); LYMPHOCYTES # (AUTO) 0.3 10^3/uL (1.0-4.0); LYMPHOCYTES % (AUTO) 4 % (12-44); MEAN CORPUSCULAR HEMOGLOBIN 27 pg (25-34); MEAN CORPUSCULAR HGB CONC 30 g/dL (32-36); MEAN CORPUSCULAR VOLUME 88 fL (80-99); MEAN PLATELET VOLUME 9.5 fL (9.0-12.2); MONOCYTES # (AUTO) 0.3 10^3/uL (0.0-1.0); MONOCYTES % (AUTO) 4 % (0-12); NEUTROPHILS # (AUTO) 6.2 10^3/uL (1.8-7.8); NEUTROPHILS % (AUTO) 91 % (42-75); PLATELET COUNT 295 10^3/uL (130-400); WHITE BLOOD COUNT 6.8 10^3/uL (4.3-11.0)
[2020-08-01 03:53] LABS: BUN/CREATININE RATIO 12; CALCIUM 8.2 MG/DL (8.5-10.1); CARBON DIOXIDE 33 MMOL/L (21-32); CHLORIDE 97 MMOL/L (98-107); CREATININE SERUM 0.68 MG/DL (0.60-1.30); GFR ESTIMATED > 60; GLUCOSE 159 MG/DL (70-105); MAGNESIUM 2.2 MG/DL (1.6-2.4); PHOSPHORUS 2.5 MG/DL (2.3-4.7); POTASSIUM 4.8 MMOL/L (3.6-5.0); SODIUM 137 MMOL/L (135-145)
--- NOTE | 2020-08-01 04:55 | Pulmonary Progress Note ---
Subjective Time Seen by a Provider: 04:50 Sepsis Event Evaluation Height, Weight, BMI Height: 6'0" Weight: 174lbs. 3.0oz. 79.182056db; 23.94 BMI Method:Stated Focused Exam Lactate Level 07/31/20 11:08: Lactic Acid Level 0.71 Exam Exam Vital Signs Date Time Temp Pulse Resp B/P (MAP) Pulse Ox O2 Delivery O2 Flow Rate FiO2 08/01/20 04:00 92 19 173/99 (123) 94 Vapotherm 30.00 30.00 08/01/20 04:00 94 Vapotherm 35 08/01/20 03:00 86 14 124/78 (93) 95 Vapotherm 30.00 30.00 08/01/20 02:00 91 20 153/96 (115) 94 Vapotherm 30.00 30.00 08/01/20 01:42 94 Vapotherm 08/01/20 01:00 94 08/01/20 01:00 93 23 110/72 (85) 95 Vapotherm 30.00 30.00 08/01/20 00:00 78 21 136/77 (96) 95 Vapotherm 30.00 30.00 07/31/20 23:59 95 Vapotherm 35 07/31/20 23:00 80 22 147/42 (77) 95 Vapotherm 30.00 30.00 07/31/20 22:00 87 23 134/100 (111) 96 Vapotherm 30.00 30.00 07/31/20 21:46 Vapotherm 30.00 30.00 07/31/20 21:34 97 Vapotherm 30.00 30 07/31/20 21:00 87 19 132/84 (100) 96 Vapotherm 30.00 35.00 07/31/20 20:00 92 17 143/87 (105) 97 Vapotherm 30.00 35.00 07/31/20 20:00 95 Vapotherm 35 07/31/20 19:00 94 18 132/92 (105) 96 Vapotherm 30.00 35.00 07/31/20 19:00 97 07/31/20 18:34 96 Vapotherm 30.00 35 07/31/20 18:21 Vapotherm 30.00 35.00 07/31/20 18:00 100 23 111/88 (96) 95 Nasal Cannula 4.00 07/31/20 17:00 98 20 143/94 (110) 97 Nasal Cannula 4.00 07/31/20 16:51 36.7 100 98 07/31/20 16:00 94 13 138/84 (102) 92 Nasal Cannula 4.00 07/31/20 16:00 96 Nasal Cannula 4.00 07/31/20 15:00 95 Nasal Cannula 4.00 07/31/20 15:00 104 07/31/20 14:55 36.8 104 16 133/99 (110) 93 Nasal Cannula 4.00 07/31/20 14:29 96 20 142/83 97 Nasal Cannula 4.00 07/31/20 10:54 36.7 100 30 153/87 (109) 98 Nasal Cannula 4.00 07/31/20 10:54 98 Nasal Cannula 4.00 I & O 08/01/20 07:00 Intake Total 2710 ml Output Total 3000 ml Balance -290 ml Height & Weight Height: 6'0" Weight: 174lbs. 3.0oz. 79.112914ws; 23.94 BMI Method:Stated Capillary Refill: Less Than 3 Seconds Gastrointestinal: non tender, soft Results Lab Laboratory Tests 07/31/20 11:08 08/01/20 03:28 Assessment/Plan Assessment/Plan Acute on chronic respiratory failure -Repeat ABG -Currently on Vapotherm with 30% oxygen -Check BNP Hx of Grade 1 diastolic CHF -Monitor -SL IVF COPDAE-- hx of oxygen dependent COPD -Solumedrol -Albuterol, incruse -Advair UTI - Rocephin Atelectasis -IS -Increase activity Hx of metastatic lung cancer -Follows with Dr. Hoffman Seizure disorder Continue home meds HTN Continue home meds Recently at [facility] secondary to Hematuria RANI PACHECO DO August 01, 2020 04:55
--- NOTE | 2020-08-01 05:02 | Pulmonary Consultation ---
History of Present Illness History of Present Illness Date Seen by Provider: August 01, 2020 Time Seen by Provider: 05:02 Date of Admission History of Present Illness 65yo with hx of severe oxygen dependent COPD, cancer, recent hospitalization at [place] for hematuri, and multiple hospitalizations presented to ED secondary to worsening SOB and wheezing. Pt uses 4 liters of oxygen at home. Patient used DuoNeb at home and it did not help very much. ABG upon admission showed increased C02. Pt was admitted to ICU for treatment. Allergies and Home Medications Allergies Coded Allergies: aspirin (Unverified Allergy, Mild, DOES NOT WORK WELL W/ OTHER MEDS, 09/20/19) ibuprofen (Unverified Allergy, Mild, 09/20/19) hydrocodone (Verified Adverse Reaction, Intermediate, BECOMES TOO SEDATED, 09/22/19) Home Medications Acetaminophen 500 Mg Tablet, 1,000 MG PO Q6H PRN for PAIN-MILD (1-4), (Reported) Albuterol Sulfate 18 Gm Hfa.aer.ad, 2 PUFF INH Q4H PRN for SHORTNESS OF BREATH, (Reported) Amlodipine Besylate 5 Mg Tablet, 5 MG PO 0800, (Reported) LAST FILLED 12-24-2019 #90 Atorvastatin Calcium 40 Mg Tablet, 40 MG PO 0300, (Reported) Carbamazepine 200 Mg Tablet, 200 MG PO 0300,0800,2300, (Reported) Carbamazepine 200 Mg Tablet, 400 MG PO 1500, (Reported) TAKES 2 (200 MG) TABLETS Fluticasone/Vilanterol 1 Each Blst.w.dev, 1 EA PO DAILY, (Reported) Gabapentin 600 Mg Tablet, 600 MG PO 0800,1500, (Reported) Gabapentin 300 Mg Capsule, 300 MG PO 2300, (Reported) Lamotrigine 25 Mg Tablet, 25 MG PO 0300, 1500, (Reported) 0300: 25MG 1500: 100MG +25MG TO EQUAL 125MG Lamotrigine 100 Mg Tablet, 100 MG PO 1500,2300, (Reported) 1500: 100MG +25MG TO EQUAL 125MG 2300: 100MG Meloxicam 7.5 Mg Tablet, 7.5 MG PO 1500 PRN for MUSCLE SPASMS, (Reported) Neomycin/Polymyxin B Sulf/Hc 10 Ml Solution, 1 DROP LEFT EAR TID PRN for EAR PAIN, (Reported) Phenytoin Sodium Extended 100 Mg Capsule, 200 MG PO 1500, (Reported) TAKES 2 (100 MG) CAPSULES Phenytoin Sodium Extended 100 Mg Capsule, 100 MG PO 0800,2300, (Reported) Prednisone 50 Mg Tab, 50 MG PO DAILY, (Reported) FILLED 07-26-2020 #5/5 DAY SUPPLY Rivaroxaban 10 Mg Tablet, 10 MG PO 0300, (Reported) Ropinirole HCl 1 Mg Tablet, 1 MG PO 0800, (Reported) Tiotropium [place] 1 Inh Aerp, 1 INH IH 1500, (Reported) Past Xwprcqt-Ahfbeo-Nqavun Hx Patient Social History Alcohol Use: Denies Use Drug of Choice: HX OF RX DRUG ABUSE, CLAIMS NONE FOR 15 YEARS Smoking Status: Former Smoker Type Used: Cigars, Cigarettes Former Smoker, Quit: Jan 29, 2017 2nd Hand Smoke Exposure: Yes Recent Infectious Disease Expo: No Recent Hopitalizations: Yes (discharged from [place] on Friday) Have you traveled recently?: No Alcohol Use?: No Immunizations Up To Date Tetanus Booster (TDap): Less than 5yrs PED Vaccines UTD: Yes Date of Influenza Vaccine: Apr 21, 2018 Seasonal Allergies Seasonal Allergies: Yes Past Medical History Surgeries: Yes (C-SPINE SURGERY FOR FX; LEFT LOWER LEG SURGERY 10/2019) Eye Surgery, Gallbladder, Orthopedic Respiratory: Yes (O2 AT 4L/NC CONTINUOUSLY;LUNG CANCER;MULT EPISODES OF PNEUMONIA) Asthma, Pneumonia, Chronic Bronchitis, Sleep Apnea, COPD Currently Using CPAP: No Currently Using BIPAP: No Cardiac: Yes (CEREBROVASCULAR DISEASE) Heart Murmur, High Cholesterol, Hypertension, Valvular Heart Disease 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) Neuropathy, Paralysis, Seizure Disorder, Vertigo Reproductive Disorders: No Sexually Transmitted Disease: No HIV/AIDS: No Genitourinary: No Gastrointestinal: Yes (CHRONIC N/V) Gastroesophageal Reflux Musculoskeletal: Yes (HX C-SPINE FX/NON-UNION OF ODONTOID; FALLS;POST POLIO-L SIDE WEAKNESS/CONTR) Arthritis, Fractures, Contracture Endocrine: No HEENT: Yes (DENTURES) Loss of Vision: Denies Hearing Impairment: Denies Cancer: Yes Bone, Lung Did You Recieve Any Treatments: Yes What Type of Treatment Did You: Chemotherapy Psychosocial: No Integumentary: Yes (DECUBITUS ULCERS ON SACRUM/BUTTOCKS AREA) Blood Disorders: No Adverse Reaction/Blood Tranf: No Family Medical History Diabetes mellitus 19 MOTHER Hypercholesterolemia 19 FATHER Hypertension 19 FATHER Heart Disease SOCIAL HISTORY: -ETOH--HISTORY OF ABUSE, CLAIMS NO RECENT USE -DRUGS--HISTORY OF RX DRUG ABUSE, CLAIMS NO USE FOR YEARS. -SMOKES AT LEAST 1 1/2 PPD, ALSO SMOKES CIGARS PAST SURGICAL HISTORY: -BILATERAL CATARACT SURGERY 2017 -CHOLECYSTECTOMY -CERVICAL SPINE FUSION 07/2019--HAD SUBLUXATION OF CHRONIC NON-HEALING ODONTOID FRACTURE--DONE BY DR. PRESCOTT -PORT RIGHT CHEST -CT GUIDED BIOPSY OF FEMUR ADDITIONAL PAST MEDICAL HISTORY: -PT HAD NON-HEALING FRACTURE OF ODONTOID 02/2018--NO SURGERY AT THAT TIME -07/30/19-PT HAD SUBLUXATION OF THIS FRACTURE AND HAD CERVICAL SPINE FUSION 07/201906/08/19--LEFT TIB-FIB FRACTURE, TREATED BY BOTH DR. BENITES AT [facility] AND BY DR. RUBY. HAD SURGERY AROUND 11/26/[address] 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 PROGRESSION FO MODERATE STENOSIS OF CERVICAL LEFT ICA. CHRONIC ODONTOID FRACTURE WITH PROGRESSOIN OF CORTICATION OF FRACTURE MARGINS, STABLE LEFTWARD DISPLACEMENT OF ODONTOID PROCESS FRACTURE IN RELATION TO C2 VERTEBRA ----PT CANNOT TAKE ASPIRIN DUE TO SEIZURES, CURRENTLY ON XARELTO OF 05/2020 Review of Systems Time Seen by Provider: 05:02 Constitutional: Weakness, Malaise; No: Fever, Chills, Sweats, Other Eyes: No: Pain, Vision change, Conjunctivae inflammation, Eyelid inflammation, Other, Redness ENT: No: Ear pain, Ear discharge, Nose pain, Nose discharge, Nose congestion, Mouth pain, Mouth swelling, Throat pain, Throat swelling, Other Respiratory: Cough, Dry, Shortness of breath, SOB with excertion, Wheezing; No: Hemoptysis Cardiovascular: Palpitations, Paroxysmal Noc. Dyspnea, Lt Headedness; No: Chest Pain, Orthopnea, Edema, Other Gastrointestinal: No: Nausea, Vomiting, Abdominal Pain, Diarrhea, Constipation, Melena, Hematochezia, Other Genitourinary: No Dysuria, No Frequency, No Incontinence, No Hematuria, No Retention, No Other Sepsis Event Evaluation Height, Weight, BMI Height: 6'0" Weight: 174lbs. 3.0oz. 79.745786hw; 23.94 BMI Method:Stated Exam Exam Vital Signs Date Time Temp Pulse Resp B/P (MAP) Pulse Ox O2 Delivery O2 Flow Rate FiO2 08/01/20 04:00 92 19 173/99 (123) 94 Vapotherm 30.00 30.00 08/01/20 04:00 94 Vapotherm 35 08/01/20 03:00 86 14 124/78 (93) 95 Vapotherm 30.00 30.00 08/01/20 02:00 91 20 153/96 (115) 94 Vapotherm 30.00 30.00 08/01/20 01:42 94 Vapotherm 08/01/20 01:00 94 08/01/20 01:00 93 23 110/72 (85) 95 Vapotherm 30.00 30.00 08/01/20 00:00 78 21 136/77 (96) 95 Vapotherm 30.00 30.00 07/31/20 23:59 95 Vapotherm 35 07/31/20 23:00 80 22 147/42 (77) 95 Vapotherm 30.00 30.00 07/31/20 22:00 87 23 134/100 (111) 96 Vapotherm 30.00 30.00 07/31/20 21:46 Vapotherm 30.00 30.00 07/31/20 21:34 97 Vapotherm 30.00 30 07/31/20 21:00 87 19 132/84 (100) 96 Vapotherm 30.00 35.00 07/31/20 20:00 92 17 143/87 (105) 97 Vapotherm 30.00 35.00 07/31/20 20:00 95 Vapotherm 35 07/31/20 19:00 94 18 132/92 (105) 96 Vapotherm 30.00 35.00 07/31/20 19:00 97 07/31/20 18:34 96 Vapotherm 30.00 35 07/31/20 18:21 Vapotherm 30.00 35.00 07/31/20 18:00 100 23 111/88 (96) 95 Nasal Cannula 4.00 07/31/20 17:00 98 20 143/94 (110) 97 Nasal Cannula 4.00 07/31/20 16:51 36.7 100 98 07/31/20 16:00 94 13 138/84 (102) 92 Nasal Cannula 4.00 07/31/20 16:00 96 Nasal Cannula 4.00 07/31/20 15:00 95 Nasal Cannula 4.00 07/31/20 15:00 104 07/31/20 14:55 36.8 104 16 133/99 (110) 93 Nasal Cannula 4.00 07/31/20 14:29 96 20 142/83 97 Nasal Cannula 4.00 07/31/20 10:54 36.7 100 30 153/87 (109) 98 Nasal Cannula 4.00 07/31/20 10:54 98 Nasal Cannula 4.00 I & O 08/01/20 07:00 Intake Total 2710 ml Output Total 3000 ml Balance -290 ml Height & Weight Height: 6'0" Weight: 174lbs. 3.0oz. 79.447181dr; 23.94 BMI Method:Stated General Appearance: No Apparent Distress, WD/WN, Anxious, Chronically ill HEENT: PERRL/EOMI, Normal ENT Inspection, Pharynx Normal Neck: Full Range of Motion, Non Tender, Supple Respiratory: No Accessory Muscle Use, No Respiratory Distress, Crackles, Decreased Breath Sounds Cardiovascular: Regular Rate, Rhythm, No Edema Capillary Refill: Less Than 3 Seconds Gastrointestinal: non tender, soft Extremity: Normal Capillary Refill, Normal Inspection, No Pedal Edema Neurologic/Psychiatric: Alert, Oriented x3 Skin: Normal Color, Warm/Dry Lymphatic: No Adenopathy Results Lab Laboratory Tests 07/31/20 11:08 08/01/20 03:28 Assessment/Plan Assessment/Plan Acute on chronic respiratory failure -Repeat ABG -Currently on Vapotherm with 30% oxygen -Check BNP pulmonary edema with Hx of Grade 1 diastolic CHF -Check BNP and give Lasix 40mg X 1 -Monitor -SL IVF COPDAE-- hx of oxygen dependent COPD -Solumedrol -Albuterol, incruse -Advair UTI - Rocephin Atelectasis -IS -Increase activity Hx of metastatic lung cancer -Follows with Dr. Hoffman Hx of seizure disorder HTN Continue home meds Recently at [facility] secondary to Hematuria RANI PACHECO DO August 01, 2020 05:02
[2020-08-01 05:21] LABS: ABG BASE EXCESS 9.3 MMOL/L (-2.5-2.5); ABG OXYGEN SATURATION 91 % (94-100); ABG PCO2 64 MMHG (35-45); ABG PH 7.35 (7.37-7.43); ABG PO2 63 MMHG (79-93); ALLENS TEST YES-POS; INSPIRED O2 30% VAPOTHERM; PATIENT TEMP 36.6; VENTILATOR NO
[2020-08-01] MEDS ORDERED: FUROSEMIDE 40 MG/4 ML INJ (LASIX) IVP ONE (05:45)
[2020-08-01] MEDS: methylPREDNISolone 40 MG/ML (Solu-MEDROL) VIAL IV SCH ×4 (05:55→23:36)
[2020-08-01] MEDS ORDERED: KCL 20 MEQ TAB (K-DUR) PO SCH (06:00)
[2020-08-01] MEDS ORDERED: MAGNESIUM 1 GM/100 ML IVPB 100 ML IV SCH (06:00)
[2020-08-01] MEDS ORDERED: POTASSIUM CL 10MEQ/50ML IVPB 50 ML IV SCH (06:00)
[2020-08-01] MEDS: FLUTICASONE/VILANTEROL 200 MCG 14'S (BREO) IH SCH (06:30)
[2020-08-01] MEDS: UMECLIDINIUM BROMIDE (INCRUSE ELLIPTA) 7'S IH SCH (06:30)
[2020-08-01] MEDS ORDERED: rOPINIRole 1 MG (REQUIP) TABLET PO SCH (08:00)
--- NOTE | 2020-08-01 08:01 | Diagnostic Imaging Report ---
CHEST 1 VIEW, AP/PA ONLY Indication: Dyspnea Comparison: 07/31/2020 Findings: Stable right IJ Port-A-Cath. Ill-defined opacities in the left midlung zone are unchanged. Right basilar curvilinear opacities are similar. No pneumothorax or pleural effusion. Stable cardiac silhouette. Impression: 1. No change in bilateral pulmonary opacities. Dictated by: Dictated on workstation # [id number]
--- NOTE | 2020-08-01 08:35 | History & Physical-Hospitalist ---
History of Present Illness HPI/Chief Complaint Pt is a 65yo CM known to me from multiple previous admission who presented to the ER due to SOB. He was just here for a COPD exacerbation and had to be transferred to [place] for urology due to hematuria with clotted 3 way catheter and unable to due CBI. He was discharged home just a couple of days ago from there and was supposed to follow up with Dr Feng to have his catheter removed but couldn't make it due to SOB and called EMS. He was wheezing and had increased work of breathing and was placed on Vapotherm in the ER and admitted to the ICU. This morning he reports he is feeling much better today. Source: patient Date Seen 08/01/20 Time Seen by a Provider: 08:26 Attending Physician Yuki Multani MD PCP Micky Feng DO Referring Physician Date of Admission July 31, 2020 at 12:40 Home Medications & Allergies Home Medications Reviewed patient Home Medication Reconciliation performed by pharmacy medication reconciliations nuclear plant instrument technician and/or nursing. Patients Allergies have been reviewed. Allergies Allergies Coded Allergies aspirin (Unverified Allergy, Mild, DOES NOT WORK WELL W/ OTHER MEDS, 09/20/19) ibuprofen (Unverified Allergy, Mild, 09/20/19) hydrocodone (Verified Adverse Reaction, Intermediate, BECOMES TOO SEDATED, 09/22/19) Patient Social History Marrital Status: single Tobacco Use?: No Smoking Status: Former Smoker Use of E-Cig and/or Vaping dev: No Substance use?: No Alcohol Use?: No Pt stated abuse/neglect: No Immunizations Up To Date Influenza Vaccine Up-to-Date: No; Not Current Tetanus Booster (TDap): Unknown Hepatitis A: No Hepatitis B: No TB Skin Test: None Current Status Do you have an Advance Directi: Yes Advance Directive Location: Home Communicates: Verbally Primary Language: Micronesian Preferred Spoken Language: Micronesian Is interpretation needed?: No Implanted or Applied Medical D: None Past Medical History End stage COPD Chronic oxygen dependence Metastatic lung cancer to the bone Family Medical History Family Hx: SOCIAL HISTORY: -ETOH--HISTORY OF ABUSE, CLAIMS NO RECENT USE -DRUGS--HISTORY OF RX DRUG ABUSE, CLAIMS NO USE FOR YEARS. -SMOKES AT LEAST 1 1/2 PPD, ALSO SMOKES CIGARS PAST SURGICAL HISTORY: -BILATERAL CATARACT SURGERY 2017 -CHOLECYSTECTOMY -CERVICAL SPINE FUSION 07/2019--HAD SUBLUXATION OF CHRONIC NON-HEALING ODONTOID FRACTURE--DONE BY DR. PRESCOTT -PORT RIGHT CHEST -CT GUIDED BIOPSY OF FEMUR ADDITIONAL PAST MEDICAL HISTORY: -PT HAD NON-HEALING FRACTURE OF ODONTOID 02/2018--NO SURGERY AT THAT TIME -07/30/19-PT HAD SUBLUXATION OF THIS FRACTURE AND HAD CERVICAL SPINE FUSION 07/201906/08/19--LEFT TIB-FIB FRACTURE, TREATED BY BOTH DR. BENITES AT [facility] AND BY DR. RUBY. HAD SURGERY AROUND 11/26/[address] 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 PROGRESSION FO MODERATE STENOSIS OF CERVICAL LEFT ICA. CHRONIC ODONTOID FRACTURE WITH PROGRESSOIN OF CORTICATION OF FRACTURE MARGINS, STABLE LEFTWARD DISPLACEMENT OF ODONTOID PROCESS FRACTURE IN RELATION TO C2 VERTEBRA ----PT CANNOT TAKE ASPIRIN DUE TO SEIZURES, CURRENTLY ON XARELTO OF 05/2020 Review of Systems Constitutional: No chills, No fever EENTM: no symptoms reported Respiratory: No cough; dyspnea on exertion, short of breath, wheezing Cardiovascular: No chest pain, No edema Gastrointestinal: no symptoms reported Genitourinary: no symptoms reported Musculoskeletal: no symptoms reported Skin: no symptoms reported Psychiatric/Neurological: No Symptoms Reported Physical Exam Physical Exam Vital Signs Vital Signs - First Documented 07/31/20 07/31/20 10:54 18:34 Temp 36.7 Pulse 100 Resp 30 B/P (MAP) 153/87 (109) Pulse Ox 98 O2 Delivery Nasal Cannula O2 Flow Rate 4.00 FiO2 35 Capillary Refill : Less Than 3 Seconds Height, Weight, BMI Height: 6'0" Weight: 174lbs. 3.0oz. 79.419758yh; 23.94 BMI Method:Stated General Appearance: No Apparent Distress, Chronically ill HEENT: PERRL/EOMI, Moist Mucous Membranes Neck: Normal Inspection, Supple Respiratory: Lungs Clear, No Respiratory Distress Cardiovascular: Regular Rate, Rhythm, No Murmur Gastrointestinal: Normal Bowel Sounds, Non Tender, Soft Genital/Rectal: Other (catheter in place) Extremity: No Calf Tenderness, No Pedal Edema Neurologic/Psychiatric: Alert, Oriented x3, Normal Mood/Affect; No Aphasia Results Results/Procedures Labs Laboratory Tests 07/31/20 11:08 08/01/20 03:28 Patient resulted labs reviewed. Imaging: Reviewed Imaging Report Assessment/Plan Admission Diagnosis Acute on Chronic respiratory failure Admission Status: Inpatient Order (span 2 midnights) Reason for Inpatient Admission: see below Assessment and Plan Acute on Chronic Respiratory Failure from COPD exacerbation End stage COPD Metastatic Lung cancer- in remission per patient Continue Solumedrol Pulm/TeleICU consulted appreciate recs Wean off Vapotherm as able Continue home inhalers MAT protocol Elevated BNP, lasix given this AM Seizure disorder Continue home meds on his home schedule Seizure precautions Hematuria, resolved UTI Will trial with catheter out after lasix Continue on Rocephin Await culture Chronic pain Continue home meds, though UDS negative for opiates so likely not needing mu ch at home Anemia Chronic, stable Hyponatremia Chronic, stable HTN Bp well controlled, trend DVT ppx: Xarelto held for hematura Diagnosis/Problems Diagnosis/Problems (1) Readmission after hospitalization within last 30 days Status: Acute (2) Acute on chronic respiratory failure with hypoxia and hypercapnia Status: Acute (3) COPD (chronic obstructive pulmonary disease) Status: Chronic Qualifiers: COPD type: COPD with acute exacerbation Qualified Codes: J44.1 - Chronic obstructive pulmonary disease with (acute) exacerbation (4) COPD exacerbation Status: Acute (5) UTI (urinary tract infection) Status: Acute Qualifiers: Urinary tract infection type: acute cystitis Hematuria presence: with hem aturia Qualified Codes: N30.01 - Acute cystitis with hematuria (6) Seizure disorder Status: Chronic (7) HTN (hypertension) Status: Chronic Qualifiers: Hypertension type: essential hypertension Qualified Codes: I10 - Essential (primary) hypertension (8) HLD (hyperlipidemia) Status: Chronic Qualifiers: Hyperlipidemia type: mixed hyperlipidemia Qualified Codes: E78.2 - Mixed hyperlipidemia (9) Post-polio syndrome Status: Acute (10) Closed left fibular fracture Status: Chronic Qualifiers: Encounter type: sequela (11) Hyponatremia Status: Acute (12) Odontoid fracture Status: Chronic Qualifiers: Encounter type: sequela Fracture type: closed Qualified Codes: S12.100S - Unspecified displaced fracture of second cervical vertebra, sequela (13) Lung cancer metastatic to bone Status: Chronic YUKI MULTANI MD August 01, 2020 08:35
[2020-08-01] MEDS ORDERED: RT-ALBUTEROL/IPRATROPIUM 3 ML (DUONEB) VIAL INH SCH (10:00)
[2020-08-01] MEDS: GABAPENTIN 300 MG (NEURONTIN) CAP PO SCH (10:25)
[2020-08-01] MEDS: PHENYTOIN 100 MG (DILANTIN) CAP PO SCH ×2 (10:26→23:37)
[2020-08-01] MEDS: amLODIPine 5 MG (NORVASC) TAB PO SCH (10:26)
[2020-08-01] MEDS: GABAPENTIN 600 MG (NEURONTIN) TAB PO SCH ×2 (10:29→16:58)
[2020-08-01] MEDS ORDERED: lamoTRIgine 25 MG (LaMICtal) TAB PO SCH (15:00)
[2020-08-01] MEDS ORDERED: PHENYTOIN 100 MG (DILANTIN) CAP PO SCH (15:00)
[2020-08-01] MEDS ORDERED: carBAMazepine 200 MG (TEGretol) TAB PO SCH (15:00)
[2020-08-01 16:00] VITALS: BP 144/74
[2020-08-01 16:21] VITALS: BP 144/74
[2020-08-01] MEDS: MELOXICAM 7.5 MG (MOBIC) TABLET PO SCH (16:56)
[2020-08-01] MEDS ORDERED: cefTRIAXone 1,000 MG/SWFI 10 ML IV PUSH IV SCH ×2 (17:00)
[2020-08-01] MEDS: rOPINIRole 1 MG (REQUIP) TABLET PO SCH ×2 (17:30→23:37)
[2020-08-01 19:33] VITALS: BP 139/77
[2020-08-01 23:39] VITALS: BP 160/89
[2020-08-02] MEDS: carBAMazepine 200 MG (TEGretol) TAB PO SCH ×2 (04:02→08:36)
[2020-08-02] MEDS: RIVAROXABAN 10 MG TABLET (XARELTO) PO SCH (04:02)
[2020-08-02] MEDS: lamoTRIgine 25 MG (LaMICtal) TAB PO SCH (04:03)
[2020-08-02 04:04] VITALS: BP 170/90
[2020-08-02 04:24] LABS: BASOPHILS % (AUTO) 0 % (0-10); EOSINOPHILS % (AUTO) 0 % (0-10); HEMATOCRIT 28 % (40-54); HEMOGLOBIN 8.7 g/dL (13.3-17.7); LYMPHOCYTES # (AUTO) 0.6 10^3/uL (1.0-4.0); LYMPHOCYTES % (AUTO) 7 % (12-44); MEAN CORPUSCULAR HEMOGLOBIN 27 pg (25-34); MEAN CORPUSCULAR HGB CONC 31 g/dL (32-36); MEAN CORPUSCULAR VOLUME 86 fL (80-99); MEAN PLATELET VOLUME 9.4 fL (9.0-12.2); MONOCYTES # (AUTO) 0.5 10^3/uL (0.0-1.0); MONOCYTES % (AUTO) 7 % (0-12); NEUTROPHILS # (AUTO) 6.8 10^3/uL (1.8-7.8); NEUTROPHILS % (AUTO) 86 % (42-75); PLATELET COUNT 302 10^3/uL (130-400); WHITE BLOOD COUNT 7.9 10^3/uL (4.3-11.0)
[2020-08-02 04:44] LABS: CHLORIDE 90 MMOL/L (98-107); POTASSIUM 4.7 MMOL/L (3.6-5.0); SODIUM 132 MMOL/L (135-145)
[2020-08-02 04:45] LABS: CALCIUM 8.4 MG/DL (8.5-10.1)
[2020-08-02 04:46] LABS: GLUCOSE 120 MG/DL (70-105)
[2020-08-02 04:47] LABS: CARBON DIOXIDE 35 MMOL/L (21-32)
[2020-08-02 04:50] LABS: CREATININE SERUM 0.64 MG/DL (0.60-1.30); GFR ESTIMATED > 60; PHOSPHORUS 2.9 MG/DL (2.3-4.7)
[2020-08-02 04:51] LABS: BUN/CREATININE RATIO 16
[2020-08-02 04:52] LABS: MAGNESIUM 1.8 MG/DL (1.6-2.4)
[2020-08-02] MEDS: methylPREDNISolone 40 MG/ML (Solu-MEDROL) VIAL IV SCH (05:52)
--- NOTE | 2020-08-02 06:24 | Pulmonary Progress Note ---
Subjective Time Seen by a Provider: 06:19 Subjective/Events-last exam PT appears to be doing better. Sepsis Event Evaluation Height, Weight, BMI Height: 6'0" Weight: 174lbs. 3.0oz. 79.090979kf; 23.94 BMI Method:Stated Focused Exam Lactate Level 07/31/20 11:08: Lactic Acid Level 0.71 Exam Exam Vital Signs Date Time Temp Pulse Resp B/P (MAP) Pulse Ox O2 Delivery O2 Flow Rate FiO2 08/02/20 04:04 36.8 88 18 170/90 (116) 98 Vapotherm 25.00 35.00 08/02/20 02:07 95 Vapotherm 25.00 35 08/02/20 00:33 82 08/01/20 23:39 36.2 78 20 160/89 (112) 95 Vapotherm 25.00 35.00 08/01/20 21:22 96 Vapotherm 30.00 40 08/01/20 20:50 Vapotherm 30.00 08/01/20 19:33 35.8 87 20 139/77 (97) 98 Vapotherm 30.00 40.00 08/01/20 18:53 98 08/01/20 18:34 93 Vapotherm 30.00 40 08/01/20 16:00 36.6 85 20 144/74 (97) 97 Vapotherm 30.00 40.00 08/01/20 14:35 92 Vapotherm 30.00 40 08/01/20 12:56 82 08/01/20 09:52 90 Vapotherm 30.00 30 08/01/20 08:00 92 Vapotherm 30.00 08/01/20 08:00 92 Vapotherm 30.00 08/01/20 07:45 37.4 08/01/20 07:00 85 24 143/76 (98) 92 Vapotherm 30.00 30.00 08/01/20 06:43 87 08/01/20 06:33 90 Vapotherm 30.00 30 08/01/20 06:32 90 Vapotherm 30.00 30 I & O 08/02/20 07:00 Intake Total 3620 ml Output Total 2675 ml Balance 945 ml Height & Weight Height: 6'0" Weight: 174lbs. 3.0oz. 79.794252yq; 23.94 BMI Method:Stated General Appearance: No Apparent Distress, Chronically ill HEENT: PERRL/EOMI, Moist Mucous Membranes Neck: Normal Inspection, Supple Respiratory: Lungs Clear, No Respiratory Distress Cardiovascular: Regular Rate, Rhythm, No Murmur Capillary Refill: Less Than 3 Seconds Gastrointestinal: non tender, soft Extremity: No Calf Tenderness, No Pedal Edema Neurologic/Psychiatric: Alert, Oriented x3, Normal Mood/Affect; No Aphasia Skin: Normal Color, Warm/Dry Lymphatic: No Adenopathy Results Lab Laboratory Tests 07/31/20 11:08 08/01/20 03:28 08/02/20 04:14 Assessment/Plan Assessment/Plan Acute on chronic respiratory failure -Change Vapotherm to NC -Repeat CXR pulmonary edema with Hx of Grade 1 diastolic CHF -monitor COPDAE-- hx of oxygen dependent COPD -Solumedrol -- Change to prednisone -Albuterol, incruse -Advair UTI - Rocephin Atelectasis -IS -Increase activity Hx of metastatic lung cancer -Follows with Dr. Hoffman Hx of seizure disorder HTN Continue home meds Recently at [facility] secondary to Hematuria RANI PACHECO DO August 02, 2020 06:24
[2020-08-02] MEDS: UMECLIDINIUM BROMIDE (INCRUSE ELLIPTA) 7'S IH SCH (06:56)
[2020-08-02] MEDS: FLUTICASONE/VILANTEROL 200 MCG 14'S (BREO) IH SCH (06:56)
[2020-08-02 07:39] VITALS: BP 147/76
--- NOTE | 2020-08-02 08:09 | Diagnostic Imaging Report ---
INDICATION: Shortness of breath. TECHNIQUE: Single view chest 7:35 AM. CORRELATION STUDY: 08/01/2020 FINDINGS: Right IJ [id number]-g-[id number] catheter tip over the SVC. Heart size and mediastinum are generally stable. Vasculature is less congestion and improved. Bilateral perihilar and basilar opacities are again demonstrated. May be slightly improved as well. Likely trace effusions. IMPRESSION: 1. Improved appearance about the chest. Overall vasculature appears less congested. Bilateral perihilar pulmonary opacities do persist but slightly improved as well. Dictated by: Dictated on workstation # [id number]
[2020-08-02] MEDS: PHENYTOIN 100 MG (DILANTIN) CAP PO SCH (08:36)
[2020-08-02] MEDS: GABAPENTIN 600 MG (NEURONTIN) TAB PO SCH (08:36)
[2020-08-02] MEDS: amLODIPine 5 MG (NORVASC) TAB PO SCH (08:36)
[2020-08-02] MEDS: rOPINIRole 1 MG (REQUIP) TABLET PO SCH ×2 (08:36→12:56)
[2020-08-02] MEDS ORDERED: CEPH500T PO (10:52)
[2020-08-02] MEDS ORDERED: PRD20T PO (10:52)
--- NOTE | 2020-08-02 11:07 | Discharge Inst-Simple/Standard ---
Discharge Inst-Standard Discharge Medications New, Converted or Re-Newed RX: Transmitted to Pharmacy Patient Instructions/Follow Up Plan of Care/Instructions/FU: Please continue to take your medications as written. Please follow up with Dr Hammond to follow up this hospital stay. Activity as Tolerated: Yes Discharge Diet: No Restrictions Return to The Hospital For: Chest pain, shortness of breath, confusion, weakness, if you feel you are getting worse. YUKI OWUSU MD August 02, 2020 11:07
--- NOTE | 2020-08-02 11:08 | Discharge Summary ---
Diagnosis/Chief Complaint Date of Admission July 31, 2020 at 12:40 Date of Discharge Discharge Date: August 02, 2020 Admission Diagnosis Acute on Chronic respiratory failure Primary Care Micky Feng DO Discharge Diagnosis (1) Readmission after hospitalization within last 30 days Status: Acute (2) Acute on chronic respiratory failure with hypoxia and hypercapnia Status: Acute (3) COPD (chronic obstructive pulmonary disease) Status: Chronic (4) COPD exacerbation Status: Acute (5) UTI (urinary tract infection) Status: Acute (6) Seizure disorder Status: Chronic (7) HTN (hypertension) Status: Chronic (8) HLD (hyperlipidemia) Status: Chronic (9) Post-polio syndrome Status: Acute (10) Closed left fibular fracture Status: Chronic (11) Hyponatremia Status: Acute (12) Odontoid fracture Status: Chronic (13) Lung cancer metastatic to bone Status: Chronic Discharge Summary Procedures/Consulations Pulm- Dr Bernal Discharge Physical Exam Allergies: Coded Allergies: aspirin (Unverified Allergy, Mild, DOES NOT WORK WELL W/ OTHER MEDS, 09/20/19) ibuprofen (Unverified Allergy, Mild, 09/20/19) hydrocodone (Verified Adverse Reaction, Intermediate, BECOMES TOO SEDATED, 09/22/19) Vitals & I&Os Vital Signs Date Time Temp Pulse Resp B/P (MAP) Pulse Ox O2 Delivery O2 Flow Rate FiO2 08/02/20 12:04 36.2 84 18 141/83 (102) 98 High Flow N/C 3.50 08/02/20 02:07 35 General Appearance: Chronically ill Respiratory: Lungs Clear, No Accessory Muscle Use Cardiovascular: Regular Rate, Rhythm, No Murmur Neurologic/Psychiatric: Alert, Oriented x3 Hospital Course Pt was admitted to this hospital due to acute COPD exacerbation and pneumonia. He was treated with IV abx and steroids and responded well. He was able to be titrated off vapotherm and back to his baseline oxygen. He was seen in consultation by Pulmonology. He was able to be discharged home in stable and improved condition. He did request that I resume his home health but let them know he will be on vacation in [place] until Friday. I informed him I cannot sign home health orders if he is not homebound. He is to follow up with Dr Feng to follow up this hospital stay. Labs (last 24 hrs) Laboratory Tests 08/02/20 04:14: White Blood Count 7.9, Red Blood Count 3.25L, Hemoglobin 8.7L, Hematocrit 28L, Mean Corpuscular Volume 86, Mean Corpuscular Hemoglobin 27, Mean Corpuscular Hemoglobin Concent 31L, Red Cell Distribution Width 19.2H, Platelet Count 302, Mean Platelet Volume 9.4, Immature Granulocyte % (Auto) 1, Neutrophils (%) (Auto) 86H, Lymphocytes (%) (Auto) 7L, Monocytes (%) (Auto) 7, Eosinophils (%) (Auto) 0, Basophils (%) (Auto) 0, Neutrophils # (Auto) 6.8, Lymphocytes # (Auto) 0.6L, Monocytes # (Auto) 0.5, Eosinophils # (Auto) 0.0, Basophils # (Auto) 0.0, Immature Granulocyte # (Auto) 0.1, Sodium Level 132L, Potassium Level 4.7, Chloride Level 90L, Carbon Dioxide Level 35H, Anion Gap 7, Blood Urea Nitrogen 10, Creatinine 0.64, Estimat Glomerular Filtration Rate > 60, BUN/Creatinine Ratio 16, Glucose Level 120H, Calcium Level 8.4L, Phosphorus Level 2.9, Magnesium Level 1.8 Microbiology 07/31/20 MRSA Screen - Final, Complete MRSA not isolated 07/31/20 Urine Culture - Final, Complete Escherichia coli YEAST 07/31/20 Blood Culture - Preliminary, Resulted No growth Patient resulted labs reviewed. Pending Labs Imaging: Reviewed Imaging Report Discussion & Recommendations Discharge Planning: >30 minutes discharge planning Discharge Home Medications: Active Scripts Active Cephalexin 500 Mg Tablet 500 Mg PO BID Prednisone 20 Mg Tab 40 Mg PO DAILY@0700 Reported Tknulqtq-Axjfgwwnz-Nc Ear Soln (Neomycin/Polymyxin B Sulf/Hc) 10 Ml Solution 1 Drop LEFT EAR TID PRN Breo Ellipta 200-25 Mcg INH (Fluticasone/Vilanterol) 1 Each Blst.w.dev 1 Ea PO DAILY Atorvastatin Calcium 40 Mg Tablet 40 Mg PO 0300 Xarelto (Rivaroxaban) 10 Mg Tablet 10 Mg PO 0300 Spiriva (Tiotropium [place]) 1 Inh Aerp 1 Inh IH 1500 Ropinirole HCl 1 Mg Tablet 1 Mg PO 0800 Ventolin Hfa (Albuterol Sulfate) 18 Gm Hfa.aer.ad 2 Puff INH Q4H PRN Meloxicam 7.5 Mg Tablet 7.5 Mg PO 1500 PRN Amlodipine Besylate 5 Mg Tablet 5 Mg PO 0800 LAST FILLED 12-24-2019 #90 Lamotrigine 100 Mg Tablet 100 Mg PO 1500,2300 1500: 100MG +25MG TO EQUAL 125MG 2300: 100MG Neurontin (Gabapentin) 300 Mg Capsule 300 Mg PO 2300 Acetaminophen 500 Mg Tablet 1,000 Mg PO Q6H PRN Carbamazepine 200 Mg Tablet 400 Mg PO 1500 TAKES 2 (200 MG) TABLETS Lamotrigine 25 Mg Tablet 25 Mg PO 0300, 1500 0300: 25MG 1500: 100MG +25MG TO EQUAL 125MG Tegretol (Carbamazepine) 200 Mg Tablet 200 Mg PO 0300,0800,2300 Phenytoin Sodium Extended 100 Mg Capsule 100 Mg PO 0800,2300 Phenytoin Sodium Extended 100 Mg Capsule 200 Mg PO 1500 TAKES 2 (100 MG) CAPSULES Gabapentin 600 Mg Tablet 600 Mg PO 0800,1500 Instructions to patient/family Please see electronic discharge instructions given to patient. Copy Copies To 1: MICKY FENG DO Problem Qualifiers (1) COPD (chronic obstructive pulmonary disease): COPD type: COPD with acute exacerbation Qualified Codes: J44.1 - Chronic obstructive pulmonary disease with (acute) exacerbation (2) UTI (urinary tract infection): Urinary tract infection type: acute cystitis Hematuria presence: with hematuria Qualified Codes: N30.01 - Acute cystitis with hematuria (3) HTN (hypertension): Hypertension type: essential hypertension Qualified Codes: I10 - Essential (primary) hypertension (4) HLD (hyperlipidemia): Hyperlipidemia type: mixed hyperlipidemia Qualified Codes: E78.2 - Mixed hyperlipidemia (5) Closed left fibular fracture: Encounter type: sequela (6) Odontoid fracture: Encounter type: sequela Fracture type: closed Qualified Codes: S12.100S - Unspecified displaced fracture of second cervical vertebra, sequela YUKI OWUSU MD August 02, 2020 11:07
[2020-08-02] MEDS ORDERED: predniSONE 20 MG TAB PO SCH (12:00)
[2020-08-02 12:04] VITALS: BP 141/83
[2020-08-02 13:20] VITALS: BP 141/83
== END 2020-08-02 13:20 | disposition home health service (06) | DRG 871 ==
LOC: EDUNIT# 10:54 → ER 10:56 → ICU 12:40 → 4TH 08-01 08:34
PROVIDERS: ADMIT Family Medicine; ATTEND Family Medicine
DX: A41.9 Sepsis, unspecified organism (principal); J96.22 Acute and chronic respiratory failure with hypercapnia; J96.21 Acute and chronic respiratory failure with hypoxia; J44.1 Chronic obstructive pulmonary disease with (acute) exacerbation; N39.0 Urinary tract infection, site not specified; I50.30 Unspecified diastolic (congestive) heart failure; C34.90 Malignant neoplasm of unspecified part of unspecified bronchus or lung; C79.51 Secondary malignant neoplasm of bone; Z20.822 Contact with and (suspected) exposure to COVID-19; J98.11 Atelectasis; E87.1 Hypo-osmolality and hyponatremia; I11.0 Hypertensive heart disease with heart failure; M19.012 Primary osteoarthritis, left shoulder; M19.09 Primary osteoarthritis, other specified site; F17.210 Nicotine dependence, cigarettes, uncomplicated; G47.30 Sleep apnea, unspecified; E78.00 Pure hypercholesterolemia, unspecified; R29.898 Other symptoms and signs involving the musculoskeletal system; B91 Sequelae of poliomyelitis; M62.462 Contracture of muscle, left lower leg; L89.159 Pressure ulcer of sacral region, unspecified stage; Z79.2 Long term (current) use of antibiotics; Z88.6 Allergy status to analgesic agent; Z83.3 Family history of diabetes mellitus; Z82.49 Family history of ischemic heart disease and other diseases of the circulatory system; Z83.42 Family history of familial hypercholesterolemia; Z99.81 Dependence on supplemental oxygen
CPT/HCPCS: 36415; 71045; 80048; 80053; 81000; 82805; 83605; 83735; 83880; 84100; 84145; 85007; 85025; 85027; 85379; 85610; 85730; 86141; 87040; 87077; 87081; 87088; 87186; 87635; 93306; 94640; 94664; 94760; 99291

== ENCOUNTER 2020-09-09 09:09 | Inpatient (IN) | payer MEDICARE, MEDICAID ==
[~2020-09-09] VITALS: Ht 182 cm; Wt 82.6 kg
[~2020-09-09 09:09] MED LIST changes: +ACET-2422 PO; +ATOR40TA70 PO; +CEPH500T PO; +FLUT1BLS IH; +FLUT1BLS PO; +FURO40TA4 PO; +IPRA3AMP31 NEB; +NEOM10SO8 LEFT EAR; +POTA20TA15 PO; +PRD50T PO
[2020-09-09 09:21] LABS: ABG BASE EXCESS 7.3 MMOL/L (-2.5-2.5); ABG OXYGEN SATURATION 100 % (94-100); ABG PCO2 66 MMHG (35-45); ABG PO2 316 MMHG (79-93); ABG TCO2 35.4 MMOL/L (21.0-31.0)
[2020-09-09 09:24] LABS: ABG PH 7.32 (7.37-7.43); ALLENS TEST YES-POS; INSPIRED O2 15L VIA CPAP; PATIENT TEMP 36.3; VENTILATOR NO
[2020-09-09] MEDS ORDERED: methylPREDNISolone 125 MG (Solu-MEDROL) VIAL IV STA (09:24)
[2020-09-09] MEDS ORDERED: NITROGLYCERIN 0.4 MG SL TABS BTL 25'S SL PRN (09:30)
[2020-09-09] MEDS ORDERED: RT-ALBUTEROL/IPRATROPIUM 3 ML (DUONEB) VIAL INH ONE (09:30)
[2020-09-09 09:34] LABS: BASOPHILS % (AUTO) 0 % (0-10); EOSINOPHILS % (AUTO) 0 % (0-10); HEMATOCRIT 29 % (40-54); HEMOGLOBIN 8.4 g/dL (13.3-17.7); LYMPHOCYTES # (AUTO) 0.7 10^3/uL (1.0-4.0); LYMPHOCYTES % (AUTO) 12 % (12-44); MEAN CORPUSCULAR HEMOGLOBIN 24 pg (25-34); MEAN CORPUSCULAR HGB CONC 30 g/dL (32-36); MEAN CORPUSCULAR VOLUME 81 fL (80-99); MEAN PLATELET VOLUME 9.6 fL (9.0-12.2); MONOCYTES # (AUTO) 0.9 10^3/uL (0.0-1.0); MONOCYTES % (AUTO) 15 % (0-12); NEUTROPHILS % (AUTO) 72 % (42-75); PLATELET COUNT 260 10^3/uL (130-400); WHITE BLOOD COUNT 5.5 10^3/uL (4.3-11.0)
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
[2020-09-09 09:42] LABS: ALBUMIN 3.6 GM/DL (3.2-4.5); CHLORIDE 93 MMOL/L (98-107); POTASSIUM 4.2 MMOL/L (3.6-5.0); SODIUM 136 MMOL/L (135-145)
[2020-09-09 09:43] LABS: CALCIUM 8.6 MG/DL (8.5-10.1)
[2020-09-09 09:44] LABS: GLUCOSE 112 MG/DL (70-105)
[2020-09-09 09:45] LABS: TOTAL PROTEIN 6.9 GM/DL (6.4-8.2)
[2020-09-09 09:46] LABS: BILIRUBIN,TOTAL 0.2 MG/DL (0.1-1.0); CARBON DIOXIDE 32 MMOL/L (21-32)
[2020-09-09 09:48] LABS: ALKALINE PHOSPHATASE 177 U/L (40-136); CREATININE SERUM 0.66 MG/DL (0.60-1.30); GFR ESTIMATED > 60; MAGNESIUM 2.1 MG/DL (1.6-2.4)
[2020-09-09 09:49] LABS: BUN/CREATININE RATIO 11
[2020-09-09 09:51] LABS: ALANINE AMINOTRANSFERASE 8 U/L (0-55)
--- NOTE | 2020-09-09 10:02 | Diagnostic Imaging Report ---
Indication: Shortness of breath. Comparison made with prior examination from 08/29/2020. FINDINGS: There is cardiomegaly. There are patchy bibasal infiltrates. There is no pleural effusion or pneumothorax. The mediastinum is unremarkable. Diffuse Port-A-Cath has its tip in superior vena cava. IMPRESSION: Bibasal pulmonary infiltrates. Cardiomegaly. Dictated by: Dictated on workstation # [id number]
[2020-09-09] MEDS ORDERED: VANCOMYCIN INJECTION 1,500 MG in NS IV 500 ML 500 ML IV ONE (11:00)
[2020-09-09] MEDS ORDERED: CEFEPIME INJECTION 1,000 MG in WATER (STERILE) FOR INJECTION 10 ML IV ONE (11:00)
[2020-09-09] MEDS ORDERED: cefTRIAXone 1,000 MG in WATER (STERILE) FOR INJECTION 10 ML IV SCH (12:15)
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
[2020-09-09] MEDS ORDERED: D5W 1000 ML IV SOLUTION 1,000 ML IV SCH (12:30)
[2020-09-09] MEDS ORDERED: ACETAMINOPHEN 325 MG TABLET PO PRN (12:30)
[2020-09-09] MEDS ORDERED: ACETAMINOPHEN 650 MG SUPP (TYLENOL) PR PRN (12:30)
[2020-09-09] MEDS ORDERED: ONDANSETRON 4 MG/2 ML (SDV) Z0FRAN IV PRN (12:30)
[2020-09-09] MEDS ORDERED: FUROSEMIDE 40 MG/4 ML INJ (LASIX) IVP ONE (12:30)
[2020-09-09] MEDS ORDERED: VANCOMYCIN INJECTION 0.1 MG in NS (IVPB) 250 ML IV SCH (12:45)
[2020-09-09 13:58] LABS: ABG BASE EXCESS 7.6 MMOL/L (-2.5-2.5); ABG OXYGEN SATURATION 97 % (94-100); ABG PCO2 64 MMHG (35-45); ABG PO2 101 MMHG (79-93); ABG TCO2 35.3 MMOL/L (21.0-31.0)
[2020-09-09 14:10] LABS: ABG PH 7.34 (7.37-7.43); ALLENS TEST YES-POS; INSPIRED O2 40% BIPAP; PATIENT TEMP 37.2; VENTILATOR NO
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
[2020-09-09] MEDS: RT-ALBUTEROL/IPRATROPIUM 3 ML (DUONEB) VIAL INH SCH ×3 (18:20→23:06)
[2020-09-09] MEDS: CEFEPIME INJECTION 1,000 MG in WATER (STERILE) FOR INJECTION 10 ML IV SCH ×2 (18:29→23:08)
[2020-09-09] MEDS: VANCOMYCIN 1250 MG/NS 250 ML IVPB IV SCH ×2 (20:16)
[2020-09-09] MEDS: PHENYTOIN 100 MG (DILANTIN) CAP PO SCH (21:49)
[2020-09-09] MEDS: carBAMazepine 200 MG (TEGretol) TAB PO SCH (21:49)
[2020-09-09] MEDS ORDERED: GABAPENTIN 300 MG (NEURONTIN) CAP PO SCH (23:00)
[2020-09-10 02:10] VITALS: BP 122/70
[2020-09-10] MEDS: RT-ALBUTEROL/IPRATROPIUM 3 ML (DUONEB) VIAL INH SCH ×3 (02:10→10:56)
[2020-09-10] MEDS: carBAMazepine 200 MG (TEGretol) TAB PO SCH ×2 (02:20→07:58)
[2020-09-10 02:33] LABS: BASOPHILS % (AUTO) 0 % (0-10); EOSINOPHILS % (AUTO) 0 % (0-10); HEMATOCRIT 24 % (40-54); HEMOGLOBIN 7.5 g/dL (13.3-17.7); LYMPHOCYTES # (AUTO) 0.6 10^3/uL (1.0-4.0); LYMPHOCYTES % (AUTO) 12 % (12-44); MEAN CORPUSCULAR HEMOGLOBIN 25 pg (25-34); MEAN CORPUSCULAR HGB CONC 31 g/dL (32-36); MEAN CORPUSCULAR VOLUME 80 fL (80-99); MEAN PLATELET VOLUME 9.8 fL (9.0-12.2); MONOCYTES # (AUTO) 0.7 10^3/uL (0.0-1.0); MONOCYTES % (AUTO) 15 % (0-12); NEUTROPHILS # (AUTO) 3.6 10^3/uL (1.8-7.8); NEUTROPHILS % (AUTO) 73 % (42-75); PLATELET COUNT 241 10^3/uL (130-400); WHITE BLOOD COUNT 4.9 10^3/uL (4.3-11.0)
[2020-09-10 02:37] LABS: CHLORIDE 93 MMOL/L (98-107); SODIUM 135 MMOL/L (135-145)
[2020-09-10 02:38] LABS: CALCIUM 8.3 MG/DL (8.5-10.1); GLUCOSE 102 MG/DL (70-105)
[2020-09-10 02:40] LABS: CARBON DIOXIDE 31 MMOL/L (21-32)
[2020-09-10 02:42] LABS: CREATININE SERUM 0.68 MG/DL (0.60-1.30); GFR ESTIMATED > 60
[2020-09-10 02:43] LABS: BUN/CREATININE RATIO 15
[2020-09-10] MEDS ORDERED: lamoTRIgine 25 MG (LaMICtal) TAB PO SCH (03:00)
[2020-09-10] MEDS ORDERED: RIVAROXABAN 10 MG TABLET (XARELTO) PO SCH (03:00)
[2020-09-10] MEDS: CEFEPIME INJECTION 1,000 MG in WATER (STERILE) FOR INJECTION 10 ML IV SCH ×2 (05:24→11:06)
[2020-09-10] MEDS ORDERED: predniSONE 20 MG TAB PO SCH (07:00)
[2020-09-10] MEDS: VANCOMYCIN 1250 MG/NS 250 ML IVPB IV SCH ×2 (07:58)
[2020-09-10] MEDS: PHENYTOIN 100 MG (DILANTIN) CAP PO SCH (07:58)
[2020-09-10] MEDS ORDERED: MELOXICAM 7.5 MG (MOBIC) TABLET PO SCH (08:00)
[2020-09-10] MEDS ORDERED: GABAPENTIN 600 MG (NEURONTIN) TAB PO SCH (08:00)
[2020-09-10] MEDS ORDERED: FUROSEMIDE 40 MG (LASIX) TAB PO SCH (09:00)
[2020-09-10] MEDS ORDERED: AZITHROMYCIN INJECTION 500 MG in NS (IVPB) 250 ML IV SCH (09:00)
--- NOTE | 2020-09-10 10:00 | Diagnostic Imaging Report ---
EXAMINATION: Chest 1 view HISTORY: Pneumonia, respiratory failure COMPARISON: Chest radiograph 09/09/2020 FINDINGS: Heart size and pulmonary vasculature are stable. Stable patchy interstitial and airspace opacities within the mid and lower lungs, unchanged from 09/09/2020. Stable trace left pleural effusion. No pneumothorax. The osseous structures are intact. Right-sided portacatheter is unchanged. IMPRESSION: 1. Stable patchy interstitial and airspace opacities within the mid and lower lungs compared to 09/09/2020. Stable trace left pleural effusion. Dictated by: Dictated on workstation # [id number]
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
[2020-09-10] MEDS ORDERED: AMOX-358 PO (11:22)
--- NOTE | 2020-09-10 11:23 | Discharge Summary ---
Discharge Summary Hospital Course Problems/Dx: (1) Acute on chronic respiratory failure with hypoxia and hypercapnia Status: Acute (2) Pneumonia Status: Acute Qualifiers: Qualified Codes: J18.9 - Pneumonia, unspecified organism (3) End stage COPD Status: Chronic (4) Lung cancer metastatic to bone Status: Chronic Hospital Course Date of Admission: Sep 09, 2020 at 11:15 Admission Diagnosis : Acute on chronic respiratory failure with hypoxia and hypercapnia Family Physician/Provider: Micky Feng DO Date of Discharge: 09/10/20 Discharge Diagnosis: Acute on chronic respiratory failure with hypoxia and hypercapnia Hospital Course: Joel Adamson is a 65 year old male with end stage COPD, stage 4 lung cancer, who presented with chest pain and shortness of breath. He was found to have a pneumonia and acute hypercapnia. He was started on IV antibiotics and BiPAP. He improved quickly and returned to his baseline oxygen requirement. He was transitioned to oral antibiotics. He has already been set up with home BiPAP. He was discharged home in stable, but poor condition. His poor prognosis and terminal disease was again discussed but he did not want to make any changes in his plan of care at this time. He should follow up with his PCP. Labs and Pending Lab Test: Laboratory Tests 09/09/20 12:40: Lactic Acid Level 0.73 09/09/20 13:52: Blood Gas Puncture Site RT RAD, Blood Gas Patient Temperature 37.2, Arterial Blood pH 7.34*L, Arterial Blood Partial Pressure CO2 64H, Arterial Blood Partial Pressure O2 101H, Arterial Blood HCO3 33H, Arterial Blood Total CO2 35.3H, Arterial Blood Oxygen Saturation 97, Arterial Blood Base Excess 7.6H, Johan Test YES-POS, Blood Gas Ventilator Setting NO, Blood Gas Inspired Oxygen 40% BIPAP 09/10/20 02:15: White Blood Count 4.9, Red Blood Count 3.01L, Hemoglobin 7.5L, Hematocrit 24L, Mean Corpuscular Volume 80, Mean Corpuscular Hemoglobin 25, Mean Corpuscular Hemoglobin Concent 31L, Red Cell Distribution Width 16.9H, Platelet Count 241, Mean Platelet Volume 9.8, Immature Granulocyte % (Auto) 0, Neutrophils (%) (Auto) 73, Lymphocytes (%) (Auto) 12, Monocytes (%) (Auto) 15H, Eosinophils (%) (Auto) 0, Basophils (%) (Auto) 0, Neutrophils # (Auto) 3.6, Lymphocytes # (Auto) 0.6L, Monocytes # (Auto) 0.7, Eosinophils # (Auto) 0.0, Basophils # (Auto) 0.0, Immature Granulocyte # (Auto) 0.0, Sodium Level 135, Potassium Level 4.0, Chloride Level 93L, Carbon Dioxide Level 31, Anion Gap 11, Blood Urea Nitrogen 10, Creatinine 0.68, Estimat Glomerular Filtration Rate > 60, BUN/Creatinine Ratio 15, Glucose Level 102, Calcium Level 8.3L, Procalcitonin 0.03 Microbiology 09/09/20 MRSA Screen - Final, Complete MRSA not isolated Home Meds Active Augmentin 875-125 Tablet (Amoxicillin/Potassium Clav) 1 Each Tablet 1 Each PO BID 7 Days Prednisone 10 Mg Tab.ds.pk 10 Mg PO DAILY Take 6 tabs(60mg)daily,decrease by 1 tab(10MG)daily. Pantoprazole Sodium 40 Mg Tablet.dr 40 Mg PO DAILY Reported Breo Ellipta 200-25 Mcg INH (Fluticasone/Vilanterol) 1 Each Blst.w.dev 1 Each IH DAILY Iprat-Albut 0.5-3(2.5) mg/3 ml (Ipratropium/Albuterol Sulfate) 3 Ml Ampul.neb 3 Ml NEB Q6H PRN Potassium Chloride 20 Meq Tab.er.prt 20 Meq PO DAILY Furosemide 40 Mg Tablet 40 Mg PO DAILY Atorvastatin Calcium 80 Mg Tablet 80 Mg PO 0300 Acetaminophen ER (Acetaminophen) 650 Mg Tablet.er 650 Mg PO Q8H PRN Riiraglq-Gigdklefq-Zk Ear Soln (Neomycin/Polymyxin B Sulf/Hc) 10 Ml Solution 1 Drop LEFT EAR TID PRN Xarelto (Rivaroxaban) 10 Mg Tablet 10 Mg PO 0300 Spiriva (Tiotropium [place]) 1 Inh Aerp 1 Inh IH 1500 Ropinirole HCl 1 Mg Tablet 1 Mg PO TID Ventolin Hfa (Albuterol Sulfate) 18 Gm Hfa.aer.ad 2 Puff INH Q4H PRN Meloxicam 7.5 Mg Tablet 7.5 Mg PO 0800 Lamotrigine 100 Mg Tablet 100 Mg PO 1500,2300 1500: 100MG +25MG TO EQUAL 125MG 2300: 100MG Neurontin (Gabapentin) 300 Mg Capsule 300 Mg PO 2300 Carbamazepine 200 Mg Tablet 400 Mg PO 1500 TAKES 2 (200 MG) TABLETS Lamotrigine 25 Mg Tablet 25 Mg PO 0300, 1500 0300: 25MG 1500: 100MG +25MG TO EQUAL 125MG Tegretol (Carbamazepine) 200 Mg Tablet 200 Mg PO 0300,0800,2300 Phenytoin Sodium Extended 100 Mg Capsule 100 Mg PO 0800,2300 Phenytoin Sodium Extended 100 Mg Capsule 200 Mg PO 1500 TAKES 2 (100 MG) CAPSULES Gabapentin 600 Mg Tablet 600 Mg PO 0800,1500 Assessment/Pt Instructions Take medications as prescribed. Wear your BiPAP. Follow up with your PCP. Return with worsening symptoms. Discharge Planning: <30 minutes discharge planning Discharge Instructions Discharge Diet: No Restrictions Activity as Tolerated: Yes Discharge Physical Examination Vital Signs Vital Signs Date Time Temp Pulse Resp B/P (MAP) Pulse Ox O2 Delivery O2 Flow Rate FiO2 09/10/20 10:58 97 Nasal Cannula 4.00 09/10/20 10:00 77 16 124/71 (88) 09/10/20 08:00 40 09/10/20 03:33 37.0 General Appearance: No Apparent Distress, Chronically ill Respiratory: No Respiratory Distress, Wheezing Cardiovascular: Regular Rate, Rhythm, No Edema, No Murmur Gastrointestinal: Normal Bowel Sounds, Non Tender, Soft Extremity: Normal Inspection, Non Tender, No Pedal Edema Skin: Normal Color, Warm/Dry Neurologic/Psychiatric: Alert, Oriented x3, Normal Mood/Affect, Motor Weakness Allergies: Coded Allergies: aspirin (Unverified Allergy, Mild, DOES NOT WORK WELL W/ OTHER MEDS, 08/30 05/20) ibuprofen (Unverified Allergy, Mild, 09/20/19) hydrocodone (Verified Adverse Reaction, Intermediate, BECOMES TOO SEDATED, 09/22/19) Discharge Summary Date of Admission Sep 09, 2020 at 11:15 Date of Discharge Discharge Date: Sep 10, 2020 Discharge Time: 12:00 Admission Diagnosis Acute on chronic respiratory failure with hypoxia and hypercapnia Discharge Diagnosis (1) Acute on chronic respiratory failure with hypoxia and hypercapnia Status: Acute (2) Pneumonia Status: Acute Qualifiers: Qualified Codes: J18.9 - Pneumonia, unspecified organism (3) End stage COPD Status: Chronic (4) Lung cancer metastatic to bone Status: Chronic Clinical Quality Measures AMI/AHF: ASA po Prior to arrival: SENG Wade MD Sep 10, 2020 11:23
[2020-09-10] MEDS ORDERED: methylPREDNISolone 40 MG/ML (Solu-MEDROL) VIAL IV ONE (12:30)
[2020-09-10] MEDS ORDERED: carBAMazepine 200 MG (TEGretol) TAB PO SCH (15:00)
[2020-09-10] MEDS ORDERED: TROUGH ORDER-PHARMACY XX NR (20:00)
--- NOTE | 2020-09-11 11:47 | Physician Query Clarification ---
PQ-CHF Specificity Admission Date: Sep 09, 2020 at 11:15 Discharge Date: Sep 10, 2020 at 12:52 Dr. Joseph, The medical record reflects the following clinical scenario: History/Risk Factors: pneumonia, acute respiratory failure w/hypercapnia, HTN w/ CHF, COPD Clinical Findings: BNP 587.0 Treatment: 40 mg IVP Lasix Question: Can you further specify the acuity &/or type of CHF per the clinical indicators above? Please document a response in the Progress Notes or Discharge Summary. 1. Acuity: Acute, Chronic or Acute on Chronic 2. Type: Systolic, Diastolic or Systolic & Diastolic 3. Unspecified: CHF cannot be further specified regarding type or acuity 4. Other, with explanation of clinical findings 5. Clinically undetermined, no explanation for clinical findings PHYSICIAN RESPONSE Acuity: Chronic Type: Diastolic Please remember a lack of response to the above will prompt a phone page by CDI/Coding staff. In responding to this query, please exercise your independent professional judgment. The purpose of this communication is to more accurately reflect the complexity of your patients condition. The fact that a question is asked does not imply that any particular answer is desired or expected. Thank you for your timely response to this clarification. Requestors name: Juan THIS PHYSICIAN QUERY FORM IS A PERMANENT PART OF THE MEDICAL RECORD JUAN VILLA Sep 11, 2020 11:47 SENG JOSEPH MD Sep 26, 2020 21:40
== END 2020-09-10 12:52 | disposition home or self-care (01) | DRG 193 ==
LOC: EDUNIT# 09:09 → ER 09:10 → ICU 11:15
PROVIDERS: ADMIT Internal Medicine; ATTEND Internal Medicine
PROC: 5A09357 Assistance with Respiratory Ventilation, Less than 24 Consecutive Hours, Continuous Positive Airway Pressure (ICD-10-PCS; principal; 2020-09-09)
DX: J18.9 Pneumonia, unspecified organism (principal); L89.153 Pressure ulcer of sacral region, stage 3; J96.22 Acute and chronic respiratory failure with hypercapnia; J96.21 Acute and chronic respiratory failure with hypoxia; C34.90 Malignant neoplasm of unspecified part of unspecified bronchus or lung; C79.51 Secondary malignant neoplasm of bone; I50.32 Chronic diastolic (congestive) heart failure; I11.0 Hypertensive heart disease with heart failure; J44.9 Chronic obstructive pulmonary disease, unspecified; G47.30 Sleep apnea, unspecified; E78.00 Pure hypercholesterolemia, unspecified; R29.898 Other symptoms and signs involving the musculoskeletal system; B91 Sequelae of poliomyelitis; M24.50 Contracture, unspecified joint; G62.9 Polyneuropathy, unspecified; G40.909 Epilepsy, unspecified, not intractable, without status epilepticus; K21.9 Gastro-esophageal reflux disease without esophagitis; Z99.81 Dependence on supplemental oxygen; Z87.891 Personal history of nicotine dependence; Z88.6 Allergy status to analgesic agent; Z79.52 Long term (current) use of systemic steroids; Z82.49 Family history of ischemic heart disease and other diseases of the circulatory system; Z87.01 Personal history of pneumonia (recurrent)
CPT/HCPCS: 36415; 71045; 80048; 80053; 82805; 83605; 83735; 83874; 83880; 84145; 84484; 85025; 86141; 87040; 87081; 93005; 93306; 94640; 94660; 94664; 94760; 96374; 96375; 99291

== ENCOUNTER 2020-09-13 06:53 | Emergency (ER) | payer MEDICARE, MEDICAID ==
[~2020-09-13 06:53] MED LIST changes: +AMOX-358 PO
[2020-09-13] MEDS ORDERED: EPINEPHrine 0.1 MG/ML 10 ML (HOSPIRA) SYR IJ ONE (06:55)
--- NOTE | 2020-09-13 07:57 | ED CPR ---
HPI-CPR General Chief Complaint: Code Blue Stated Complaint: CODE BLUE Nursing Triage Note: TO ED PER EMS WITH CPR IN PROGRESS WAS FOUND BY FAMILY. 2 EPI GIVEN BY EMS AT SCENE. PATIENT IN ASYSTOLE ON ARRIVAL AND REMAIN IN ASYSTOLE. Sepsis Screen: No Definite Risk Source of Information: Patient Exam Limitations: No Limitations History of Present Illness Date Seen by Provider: Sep 13, 2020 Time Seen by Provider: 06:53 Initial Comments Arrives with CPR in progress by EMS in asystole on monitor. Patient apparently had respiratory distress this morning and EMS was summoned for that. He was apparently on his CPAP and had sats in the 80s despite oxygen and support. On arrival he declined rapidly to cardiac arrest. CPR initiated. I-gel placed. 1 round of epi 1 mg IV initiated through IO right tibia. Arrives with asystole and occasional agonal beat. CPR continued. Patient well-known to me and has significant chronic lung disease requiring multiple hospitalizations and intubations/ventilatory support Initial Complaints: Dyspnea Witnessed Arrest: Yes Bystander CPR: No Paramedics Initial Findings: Unresponsive Pre Hospital Treatment: Bag Valve Mask, CPR/Thumper, Oxygen, Epinephrine (mg) (1) Allergies and Home Medications Allergies Coded Allergies: aspirin (Unverified Allergy, Mild, DOES NOT WORK WELL W/ OTHER MEDS, 09/20/19) ibuprofen (Unverified Allergy, Mild, 09/20/19) hydrocodone (Verified Adverse Reaction, Intermediate, BECOMES TOO SEDATED, 09/22/19) Home Medications Acetaminophen 650 Mg Tablet.er, 650 MG PO Q8H PRN for PAIN-MILD (1-4), (Reported) Albuterol Sulfate 18 Gm Hfa.aer.ad, 2 PUFF INH Q4H PRN for SHORTNESS OF BREATH, (Reported) Amoxicillin/Potassium Clav 1 Each Tablet, 1 EACH PO BID Prescribed by: SENG JOSEPH on 09/10/20 1122 Atorvastatin Calcium 80 Mg Tablet, 80 MG PO 0300, (Reported) Carbamazepine 200 Mg Tablet, 200 MG PO 0300,0800,2300, (Reported) Carbamazepine 200 Mg Tablet, 400 MG PO 1500, (Reported) TAKES 2 (200 MG) TABLETS Fluticasone/Vilanterol 1 Each Blst.w.dev, 1 EACH IH DAILY, (Reported) Furosemide 40 Mg Tablet, 40 MG PO DAILY, (Reported) Gabapentin 600 Mg Tablet, 600 MG PO 0800,1500, (Reported) Gabapentin 300 Mg Capsule, 300 MG PO 2300, (Reported) Ipratropium/Albuterol Sulfate 3 Ml Ampul.neb, 3 ML NEB Q6H PRN for SHORTNESS OF BREATH, (Reported) Lamotrigine 25 Mg Tablet, 25 MG PO 0300, 1500, (Reported) 0300: 25MG 1500: 100MG +25MG TO EQUAL 125MG Lamotrigine 100 Mg Tablet, 100 MG PO 1500,2300, (Reported) 1500: 100MG +25MG TO EQUAL 125MG 2300: 100MG Meloxicam 7.5 Mg Tablet, 7.5 MG PO 0800, (Reported) Neomycin/Polymyxin B Sulf/Hc 10 Ml Solution, 1 DROP LEFT EAR TID PRN for EAR PAIN, (Reported) Pantoprazole Sodium 40 Mg Tablet.dr, 40 MG PO DAILY Prescribed by: JAMIR ELLISON on 08/24/20 1155 Phenytoin Sodium Extended 100 Mg Capsule, 200 MG PO 1500, (Reported) TAKES 2 (100 MG) CAPSULES Phenytoin Sodium Extended 100 Mg Capsule, 100 MG PO 0800,2300, (Reported) Potassium Chloride 20 Meq Tab.er.prt, 20 MEQ PO DAILY, (Reported) Prednisone 10 Mg Tab.ds.pk, 10 MG PO DAILY Take 6 tabs(60mg)daily,decrease by 1 tab(10MG)daily. Prescribed by: JAMIR ELLISON on 08/24/20 1155 Rivaroxaban 10 Mg Tablet, 10 MG PO 0300, (Reported) Ropinirole HCl 1 Mg Tablet, 1 MG PO TID, (Reported) Tiotropium [place] 1 Inh Aerp, 1 INH IH 1500, (Reported) Patient Home Medication List Home Medication List Reviewed: Yes Review of Systems Review of Systems Constitutional: see HPI Other Comments Unable to complete review of systems due to cardiac arrest Past Eegclmc-Wyvauc-Rlnmpu Hx Past Med/Social Hx: Reviewed Nursing Past Med/Soc Hx Patient Social History Alcohol Use: Denies Use Drug of Choice: HX OF RX DRUG ABUSE, CLAIMS NONE FOR 15 YEARS Smoking Status: Current Everyday Smoker Type Used: Cigars, Cigarettes Former Smoker, Quit: Jan 29, 2017 2nd Hand Smoke Exposure: Yes Recent Infectious Disease Expo: No Recent Hopitalizations: Yes (dc'd 08/24/20) Immunizations Up To Date Tetanus Booster (TDap): Less than 5yrs PED Vaccines UTD: Yes Date of Influenza Vaccine: Apr 21, 2018 Seasonal Allergies Seasonal Allergies: Yes Past Medical History Surgeries: Yes (C-SPINE SURGERY FOR FX; LEFT LOWER LEG SURGERY 10/2019) Eye Surgery, Gallbladder, Orthopedic Respiratory: Yes (O2 AT 4L/NC CONTINUOUSLY;LUNG CANCER;MULT EPISODES OF PNEUMONIA) Asthma, Pneumonia, Chronic Bronchitis, Sleep Apnea, COPD Currently Using CPAP: No Currently Using BIPAP: No Cardiac: Yes (CEREBROVASCULAR DISEASE) Heart Murmur, High Cholesterol, Hypertension, Valvular Heart Disease 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) Neuropathy, Paralysis, Seizure Disorder, Vertigo Reproductive Disorders: No Sexually Transmitted Disease: No HIV/AIDS: No Genitourinary: No Gastrointestinal: Yes (CHRONIC N/V) Gastroesophageal Reflux Musculoskeletal: Yes (HX C-SPINE FX/NON-UNION OF ODONTOID; FALLS;POST POLIO-L SIDE WEAKNESS/CONTR) Arthritis, Fractures, Contracture Endocrine: No HEENT: Yes (DENTURES) Loss of Vision: Denies Hearing Impairment: Denies Cancer: Yes Bone, Lung Did You Recieve Any Treatments: Yes What Type of Treatment Did You: Chemotherapy Psychosocial: No Integumentary: Yes (DECUBITUS ULCERS ON SACRUM/BUTTOCKS AREA) Blood Disorders: No Adverse Reaction/Blood Tranf: No Family Medical History Reviewed Nursing Family Hx Diabetes mellitus 19 MOTHER Hypercholesterolemia 19 FATHER Hypertension 19 FATHER Heart Disease SOCIAL HISTORY: -ETOH--HISTORY OF ABUSE, CLAIMS NO RECENT USE -DRUGS--HISTORY OF RX DRUG ABUSE, CLAIMS NO USE FOR YEARS. -SMOKES AT LEAST 1 1/2 PPD, ALSO SMOKES CIGARS PAST SURGICAL HISTORY: -BILATERAL CATARACT SURGERY 2017 -CHOLECYSTECTOMY -CERVICAL SPINE FUSION 07/2019--HAD SUBLUXATION OF CHRONIC NON-HEALING ODONTOID FRACTURE--DONE BY DR. PRESCOTT -PORT RIGHT CHEST -CT GUIDED BIOPSY OF FEMUR ADDITIONAL PAST MEDICAL HISTORY: -PT HAD NON-HEALING FRACTURE OF ODONTOID 02/2018--NO SURGERY AT THAT TIME -07/30/19-PT HAD SUBLUXATION OF THIS FRACTURE AND HAD CERVICAL SPINE FUSION 07/201906/08/19--LEFT TIB-FIB FRACTURE, TREATED BY BOTH DR. BENITES AT [facility] AND BY DR. RUBY. HAD SURGERY AROUND 11/26/[address] 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 PROGRESSION FO MODERATE STENOSIS OF CERVICAL LEFT ICA. CHRONIC ODONTOID FRACTURE WITH PROGRESSOIN OF CORTICATION OF FRACTURE MARGINS, STABLE LEFTWARD DISPLACEMENT OF ODONTOID PROCESS FRACTURE IN RELATION TO C2 VERTEBRA ----PT CANNOT TAKE ASPIRIN DUE TO SEIZURES, CURRENTLY ON XARELTO OF 05/2020 Physical Exam Vital Signs Vital Signs - First Documented 09/13/20 06:53 Pulse 0 Resp 0 B/P (MAP) 0/0 (0) Pulse Ox 0 Capillary Refill : NONE Height, Weight, BMI Height: 6'0" Weight: 174lbs. 3.0oz. 79.061897wz; 0.00 BMI Method:Stated General Appearance: Other (Unresponsive in cardiac arrest) HEENT: Other (Fixed and dilated) Neck: Other (Kyphosis and stiffness to the left) Respiratory: Crackles (With bagging), Other (No voluntary respirations) Cardiovascular: Other (Asystole on monitor with pulse noted during CPR and none without) Neurologic/Psychiatric: Other (Unresponsive with CPR in progress) Skin: Cool, Pallor Procedures/Interventions Date of ETT Placement: Mar 09, 2017 Time of ETT Placement: 1811 Suture Size: 5-0 Progress/Results/Core Measures Results/Orders Vital Signs/I&O 09/13/20 06:53 Pulse 0 Resp 0 B/P (MAP) 0/0 (0) Pulse Ox 0 Blood Pressure Mean: 0 Progress Progress Note : Progress Note Seen and evaluated on arrival by EMS. CPR continued. Patient has IO to the right proximal tibia with normal saline running. This was placed on pressure bag. No pulse on initial pulse check and asystole with agonal beat on monitor. Epinephrine 1 mg IV given. CPR continued. Pulse check afterwards still shows asystole with occasional agonal beat. Repeat epinephrine given. CPR continued. I did speak with family. Patient has significant comorbidities and significant lung disease. Also history of cancer. Patient remains in asystole. After discussion with family, we have elected to cease resuscitation and code called at 0706 with time of at [phone]: I did discuss the case with Dr. Genao and he will sign certificate. Collision Repair Technician with family. All questions answered with family. Departure Impression Primary Impression: Cardiopulmonary arrest Disposition: 20 Condition: Departure-Patient Inst. Decision time for Depature: 07:06 Referrals: AMANDEEP GENAO DO (PCP/Family) Primary Care Physician Copy Copies To 1: AMANDEEP GENAO TIMOTHY D MD Sep 13, 2020 07:57
[2020-09-13 08:51] VITALS: BP 0/0
== END 2020-09-13 09:09 | disposition expired ==
LOC: EDUNIT# 06:53 → ER 06:54
DX: I46.9 Cardiac arrest, cause unspecified (principal); J44.9 Chronic obstructive pulmonary disease, unspecified; I10 Essential (primary) hypertension; E78.00 Pure hypercholesterolemia, unspecified; K21.9 Gastro-esophageal reflux disease without esophagitis; G40.909 Epilepsy, unspecified, not intractable, without status epilepticus; F17.210 Nicotine dependence, cigarettes, uncomplicated; F17.290 Nicotine dependence, other tobacco product, uncomplicated; Z79.01 Long term (current) use of anticoagulants; Z79.52 Long term (current) use of systemic steroids; Z79.899 Other long term (current) drug therapy